=== PATIENT | female | born 1965 | race Caucasian/White ===

== ENCOUNTER 2023-04-17 13:36 | Inpatient (IN) | payer MEDICARE, OTHER ==
--- NOTE | 2023-04-17 14:22 | ED ---
General Adult HPI - General Source: patient, RN notes reviewed Mode of arrival: ambulatory Limitations: no limitations <Zoya Conn - Last Filed: 04/17/23 14:21> <Flaco Mccabe - Last Filed: 04/17/23 19:15> - General Stated complaint: SOB Time Seen by Provider: 04/17/23 14:21 - History of Present Illness Initial comments: 57 year old female presents to the emergency department with a chief complaint of bilateral leg edema for the last few days. Reports accompanying shortness of breath. (Zoya Conn) Patient presents the ED complaining of having increasing lower extremity edema and increasing weight over the past 3 weeks or so. Patient states that she has also had dyspnea and orthopnea over the past 1.5 weeks or so. Patient states that she scheduled an appointment to see her PCP today who referred her to the ED for further evaluation. Patient states that she is diabetic. Patient denies any known history of heart disease. Patient denies having any pain, fever or chills, headache, focal numbness/weakness/neuro deficit, chest pain or pressure, neck/arm/jaw/back pain, cough or cold symptoms, palpitations, dizziness, nausea/vomiting/diaphoresis, abdominal pain, diarrhea, bloody or melanotic stool, dysuria or urinary symptoms, leg or calf pain, or any other symptoms or c omplaints. (Flaco Mccabe) - Related Data Allergies Allergy/AdvReac Type Severity Reaction Status Date / Time No Known Allergies Allergy Verified 04/17/23 14:21 Review of Systems ROS Other: All systems not noted in ROS Statement are negative. <Zoya Conn - Last Filed: 04/17/23 14:21> ROS Other: All systems not noted in ROS Statement are negative. <Flaco Mccabe - Last Filed: 04/17/23 19:15> ROS Statement: Those systems with pertinent positive or pertinent negative responses have been documented in the HPI. Past Medical History Past Medical History: Diabetes Mellitus, Hypertension Additional Past Medical History / Comment(s): high cholestrol History of Any Multi-Drug Resistant Organisms: None Reported Past Surgical History: Orthopedic Surgery, Tonsillectomy Past Psychological History: No Psychological Hx Reported Smoking Status: Vaper Past Alcohol Use History: None Reported Past Drug Use History: None Reported <Zoya Conn - Last Filed: 04/17/23 14:21> General Exam Limitations: no limitations <Zoya Conn - Last Filed: 04/17/23 14:21> Limitations: no limitations General appearance: alert, in no apparent distress Head exam: Present: normocephalic Eye exam: Present: normal appearance ENT exam: Present: mucous membranes moist Neck exam: Present: other (Trachea is in midline) Respiratory exam: Present: other (Bibasilar rales). Absent: respiratory distress, wheezes, rhonchi, stridor Cardiovascular Exam: Present: regular rate, normal rhythm, normal heart sounds, other (Normal radial pulses bilaterally) GI/Abdominal exam: Present: soft. Absent: tenderness, guarding Extremities exam: Present: other (2+ bilateral lower extremity pitting edema; negative Homans sign bilaterally). Absent: tenderness, calf tenderness Neurological exam: Present: alert, oriented X3. Absent: motor sensory deficit Skin exam: Present: warm, dry, intact, normal color <[email or web address] - Last Filed: 04/17/23 19:15> - General Exam Comments Initial Comments: Visual Physical Exam Vital signs reviewed General: Well-appearing, nontoxic, no acute distress. Head: Normocephalic, atraumatic Eyes: PERRLA, EOMI ENT: Airway patent Chest: Nonlabored breathing Skin: No visual rash, normal skin tone Neuro: Alert and oriented 3 Musculoskeletal: No gross abnormalities (Zoya Conn) Course <Flaco Mccabe - Last Filed: 04/17/23 19:15> Vital Signs 04/17/23 04/17/23 04/17/23 14:18 17:35 18:43 Temperature 97.4 F L Pulse Rate 72 72 70 Respiratory 16 18 18 Rate Blood Pressure 133/82 138/76 160/79 O2 Sat by Pulse 100 97 96 Oximetry - Reevaluation(s) Reevaluation #1: 04/17/23 19:08 Case, H&P, test results and ED management thus far were discussed with Dr. Kaye. He accepts hospital admission. He agrees with cardiology consultation. He has no further recommendations at this time. 04/17/23 19:14 Patient remains alert and breathing comfortably. Patient continues to deny having any chest pain. Patient denies development of any new symptoms while in the ED. Patient is aware of her test results, and she agrees with hospital admission at this time. (Flaco Mccabe) EKG Findings - EKG Comments: EKG Findings:: ED physician interpretation (interpreted by me): Normal sinus rhythm, ventricular rate of 71 bpm, normal TX and QRS intervals, normal QT interval, normal axis, no ST or T-wave abnormality <Flaco Mccabe - Last Filed: 04/17/23 19:15> Medical Decision Making <Zoya Conn - Last Filed: 04/17/23 14:21> - Lab Data Result diagrams: 04/17/23 14:23 04/17/23 14:23 <Flaco Mccabe - Last Filed: 04/17/23 19:15> - Medical Decision Making I performed the quick note portion of this exam, verbal signature Zoya Conn PA-C (Zoya Conn) Was pt. sent in by a medical professional or institution ([facility], [facility] [employer] [facility], urgent care, hospital, or halfway...) When possible be specific @ -No Did you speak to anyone other than the patient for history (EMS, parent, family, police, friend...)? What history was obtained from this source @ -No Did you review nursing and triage notes (agree or disagree)? Why? @ -I reviewed and agree with nursing and triage notes Were old charts reviewed (outside hosp., previous admission, EMS record, old EKG, old radiological studies, urgent care reports/EKG's, halfway records)? Report findings @ -No old charts were reviewed Differential Diagnosis (chest pain, altered mental status, abdominal pain women, abdominal pain men, vaginal bleeding, weakness, fever, dyspnea, syncope, headache, dizziness, GI bleed, back pain, seizure, CVA, palpatations, mental health, musculoskeletal)? @ -Differential Dyspnea: Coronary syndrome, arrhythmia, tamponade, asthma, COPD, pneumonia, pneumothorax, pleural effusion, anaphylaxis, CHF, anemia, neuromuscular, edema, renal disease, liver disease, this is not meant to be an all-inclusive list. EKG interpreted by me (3pts min.). @ -As above X-rays interpreted by me (1pt min.). @ -Chest x-ray was reviewed by myself and shows findings consistent with mild CHF. I agree with the radiologist's interpretation as above. CT interpreted by me (1pt min.). @ -None done U/S interpreted by me (1pt. min.). @ -None done What testing was considered but not performed or refused? (CT, X-rays, U/S, labs)? Why? @ -None What meds were considered but not given or refused? Why? @ -None Did you discuss the management of the patient with other professionals (professionals i.e. , PA, [employer], lab, RT, psych nurse, social media project manager, import/export agent, teacher, chief informatics officer, corrections caseworker)? Give summary @ -As above. Was smoking cessation discussed for >3mins.? @ -No Was critical care preformed (if so, how long)? @ -No Were there social determinants of health that impacted care today? How? (Homelessness, low income, unemployed, alcoholism, drug addiction, transportation, low edu. Level, literacy, decrease access to med. care, [facility], rehab)? @ -No Was there de-escalation of care discussed even if they declined (Discuss DNR or withdrawal of care, Hospice)? DNR status @ -No What co-morbidities impacted this encounter? (DM, HTN, Smoking, COPD, CAD, Cancer, CVA, ARF, Chemo, Hep., AIDS, mental health diagnosis, sleep apnea, morbid obesity)? @ -DM Was patient admitted / discharged? Hospital course, mention meds given and rou te, prescriptions, significant lab abnormalities, going to OR and other pertinent info. @ -Patient is noted to have pitting edema on lower extremity examination. Patient also has bibasilar rales on auscultation. Patient's chest x-ray is suggestive of mild CHF. Patient[place] BNP [place] in [place] [address]'s. Patient's troponin is within normal limits. Patient's renal function is also elevated (no baseline to compare to). Patient is breathing comfortably with a normal room air oxygen saturation. Patient has been treated with IV Lasix in the ED. Patient's symptoms/findings are consistent with new onset CHF. Will admit the patient to the hospital. Dr. Kaye has accepted hospital admission. Undiagnosed new problem with uncertain prognosis? @ -No Drug Therapy requiring intensive monitoring for toxicity (Heparin, Nitro, Insulin, Cardizem)? @ -No Were any procedures done? @ -No Diagnosis/symptom? @ -New onset CHF with peripheral edema Acute, or Chronic, or Acute on Chronic? @ -acute/subacute Uncomplicated (without systemic symptoms) or Complicated (systemic symptoms)? @ -default Side effects of treatment? @ -No Exacerbation, Progression, or Severe Exacerbation? @ -No Poses a threat to life or bodily function? How? (Chest pain, USA, ME, pneumonia, PE, COPD, DKA, ARF, appy, cholecystitis, CVA, Diverticulitis, Homicidal, Suicidal, threat to staff... and all critical care pts) @ -No Diagnosis/symptom? @ -Renal insufficiency Acute, or Chronic, or Acute on Chronic? @ -default Uncomplicated (without systemic symptoms) or Complicated (systemic symptoms)? @ -default Side effects of treatment? @ -none Exacerbation, Progression, or Severe Exacerbation] @ -no Poses a threat to life or bodily function? @ -no (Flaco Mccabe) - Lab Data Lab Results 04/17/23 04/17/23 04/17/23 Range/Units 14:23 14:23 14:23 WBC 6.9 (3.8-10.6) k/uL RBC 3.90 (3.80-5.40) m/uL Hgb 10.4 L (11.4-16.0) gm/dL Hct 33.2 L (34.0-46.0) % MCV 85.1 (80.0-100.0) fL MCH 26.7 (25.0-35.0) pg MCHC 31.4 (31.0-37.0) g/dL RDW 14.8 (11.5-15.5) % Plt Count 306 (150-450) k/uL MPV 8.4 Neutrophils % 75 % Lymphocytes % 14 % Monocytes % 5 % Eosinophils % 4 % Basophils % 0 % Neutrophils # 5.2 (1.3-7.7) k/uL Lymphocytes # 0.9 L (1.0-4.8) k/uL Monocytes # 0.4 (0-1.0) k/uL Eosinophils # 0.2 (0-0.7) k/uL Basophils # 0.0 (0-0.2) k/uL Hypochromasia Marked PT 10.4 (10.0-12.5) sec INR 0.9 (<1.2) APTT 26.3 (22.0-30.0) sec Sodium 137 (137-145) mmol/L Potassium 5.1 (3.5-5.1) mmol/L Chloride 106 (98-107) mmol/L Carbon Dioxide 22 (22-30) mmol/L Anion Gap 9 mmol/L BUN 42 H (7-17) mg/dL Creatinine 1.82 H (0.52-1.04) mg/dL Est GFR (CKD-EPI)AfAm 35 (>60 ml/min/1.73 sqM) Est GFR (CKD-EPI)NonAf 30 (>60 ml/min/1.73 sqM) Glucose 147 H (74-99) mg/dL Calcium 8.2 L (8.4-10.2) mg/dL Total Bilirubin 0.5 (0.2-1.3) mg/dL AST 28 (14-36) U/L ALT 23 (4-34) U/L Alkaline Phosphatase 215 H (38-126) U/L Troponin I (0.000-0.034) ng/mL NT-Pro-B Natriuret Pep 43595 pg/mL Total Protein 6.5 (6.3-8.2) g/dL Albumin 3.0 L (3.5-5.0) g/dL Influenza Type A (PCR) (Not Detectd) Influenza Type B (PCR) (Not Detectd) RSV (PCR) (Not Detectd) SARS-CoV-2 (PCR) (Not Detectd) 04/17/23 04/17/23 Range/Units 14:23 17:34 WBC (3.8-10.6) k/uL RBC (3.80-5.40) m/uL Hgb (11.4-16.0) gm/dL Hct (34.0-46.0) % MCV (80.0-100.0) fL MCH (25.0-35.0) pg MCHC (31.0-37.0) g/dL RDW (11.5-15.5) % Plt Count (150-450) k/uL MPV Neutrophils % % Lymphocytes % % Monocytes % % Eosinophils % % Basophils % % Neutrophils # (1.3-7.7) k/uL Lymphocytes # (1.0-4.8) k/uL Monocytes # (0-1.0) k/uL Eosinophils # (0-0.7) k/uL Basophils # (0-0.2) k/uL Hypochromasia PT (10.0-12.5) sec INR (<1.2) APTT (22.0-30.0) sec Sodium (137-145) mmol/L Potassium (3.5-5.1) mmol/L Chloride (98-107) mmol/L Carbon Dioxide (22-30) mmol/L Anion Gap mmol/L BUN (7-17) mg/dL Creatinine (0.52-1.04) mg/dL Est GFR (CKD-EPI)AfAm (>60 ml/min/1.73 sqM) Est GFR (CKD-EPI)NonAf (>60 ml/min/1.73 sqM) Glucose (74-99) mg/dL Calcium (8.4-10.2) mg/dL Total Bilirubin (0.2-1.3) mg/dL AST (14-36) U/L ALT (4-34) U/L Alkaline Phosphatase (38-126) U/L Troponin I 0.013 (0.000-0.034) ng/mL NT-Pro-B Natriuret Pep pg/mL Total Protein (6.3-8.2) g/dL Albumin (3.5-5.0) g/dL Influenza Type A (PCR) Not Detected (Not Detectd) Influenza Type B (PCR) Not Detected (Not Detectd) RSV (PCR) Not Detected (Not Detectd) SARS-CoV-2 (PCR) Not Detected (Not Detectd) - Radiology Data Chest x-ray: Favor mild CHF or interstitial pneumonitis, correlate clinically. (Flaco Mccabe) Disposition <Zoya Conn - Last Filed: 04/17/23 14:21> Is patient prescribed a controlled substance at d/c from ED?: No Time of Disposition: 19:08 <Flaco Mccabe - Last Filed: 04/17/23 19:15> Clinical Impression: CHF (congestive heart failure), Renal insufficiency Disposition: ADMITTED IP TO THIS HOSP Condition: Stable Referrals: Fadi Nolen DO [Primary Care Provider] - 1-2 days
--- NOTE | 2023-04-17 14:38 | XR ---
EXAMINATION TYPE: XR chest 2V DATE OF EXAM: 04/17/2023 COMPARISON: NONE TECHNIQUE: PA and lateral views submitted. HISTORY: Soreness of breath FINDINGS: There is an interstitial pattern with small bilateral pleural effusion and basilar subsegmental conso lidation on the left. Atherosclerotic change of aorta. Heart mildly enlarged. Diffuse osteopenia. Oss eous structures demonstrate hypertrophic and degenerative changes of the spine. IMPRESSION: 1. Favor mild CHF or interstitial pneumonitis, correlate clinically.
[2023-04-17 15:25] LABS: Basophils % (A) 0 %; Eosinophils # (A) 0.2 k/uL (0-0.7); Eosinophils % (A) 4 %; HCT 33.2 % (34.0-46.0); HGB 10.4 gm/dL (11.4-16.0); Hypochromasia Marked; Lymphocytes # (A) 0.9 k/uL (1.0-4.8); Lymphocytes % (A) 14 %; MCH 26.7 pg (25.0-35.0); MCHC 31.4 g/dL (31.0-37.0); MCV 85.1 fL (80.0-100.0); Mean Platelet Volume 8.4; Monocytes # (A) 0.4 k/uL (0-1.0); Monocytes % (A) 5 %; Neutrophils # (A) 5.2 k/uL (1.3-7.7); Neutrophils % (A) 75 %; Platelet Count 306 k/uL (150-450); RDW 14.8 % (11.5-15.5); WBC 6.9 k/uL (3.8-10.6)
[2023-04-17 15:38] LABS: INR 0.9 (<1.2); Partial Thromboplastin Time 26.3 sec (22.0-30.0); Prothrombin Time 10.4 sec (10.0-12.5)
[2023-04-17 15:55] LABS: ALT 23 U/L (4-34); AST 28 U/L (14-36); African American GFR (CKD) 35 (>60 ml/min/1.73 sqM); Alkaline Phosphatase 215 U/L (38-126); Anion Gap 9 mmol/L; Blood Urea Nitrogen 42 mg/dL (7-17); Calcium 8.2 mg/dL (8.4-10.2); Carbon Dioxide 22 mmol/L (22-30); Chloride 106 mmol/L (98-107); Glucose 147 mg/dL (74-99); Non-African American GFR(CKD) 30 (>60 ml/min/1.73 sqM); Potassium 5.1 mmol/L (3.5-5.1); Sodium 137 mmol/L (137-145); Total Bilirubin 0.5 mg/dL (0.2-1.3); Total Protein 6.5 g/dL (6.3-8.2)
[2023-04-17 16:02] LABS: NT-Pro-B-Type Natriuretic Pept 16800 pg/mL
[2023-04-17] MEDS ORDERED: FUROSEMIDE 10 MG/ML 4 ML VIAL IV STA (16:53)
[2023-04-17] MEDS ORDERED: NALOXONE 0.4 MG/ML 1 ML VIAL IV PRN (19:09)
[2023-04-17 19:24] LABS: Appearance,Urine Clear (Clear); Bilirubin,Urine Negative (Negative); Blood,Urine Negative (Negative); Color,Urine Colorless; Glucose,Urine (UA) 3+ (Negative); Ketones,Urine Negative (Negative); Leukocyte Esterase,Urine Negative (Negative); Mucus,Urine Rare /hpf; Nitrite,Urine Negative (Negative); PH, Urine 5.5 (5.0-8.0); Protein,Urine 1+ (Negative); Squamous Epithelial Cell,Urine 1 /hpf (0-4); Urobilinogen,Urine <2.0 mg/dL (<2.0); WBC,Urine <1 /hpf (0-5)
--- NOTE | 2023-04-17 21:24 | P.HPIM ---
History of Present Illness H&P Date: 04/16/23 Patient is a 57-year-old female with a PMH of type II DM completed by peripheral neuropathy with chronic nonhealing right foot ulcers, hypertension, hyperlipidemia who was sent in to the emergency room from her PCPs clinic for concerns of fluid overload. Patient reports that the past 3-4 weeks, she has weaned 20+ pounds and has gradually worsening lower extremity edema extending up to her abdomen. Reports exertional dyspnea and nonproductive cough. Also reports a nonhealing right heel ulcer for which she was previously following with a fire prevention specialist but has lost to follow-up. She denies experiencing chest discomfort, nausea, vomiting, diaphoresis. She reports using a cane over the past 2-3 as her legs feel heavy due to increased fluid retention. Patient does report that she may have previous been diagnosed with congestive heart failure and at some point was taking Lasix but has not followed up with her physicians. Of note, the patient notes she was recently several months ago and lives by herself and does not have much help at home with her ADLs. Chest x-ray in the emergency room was consistent with fluid overload. EKG revealed sinus rhythm short GA interval a [address] bpm with no other ST/T-wave changes noted as reviewed by me. Laboratory evaluation revealed BUN of 42, creatinine 1.82 (no baseline available for comparison), proBNP 16,800, glucose 147, an un remarkable UA and a negative respiratory viral panel pending. ED documentation reviewed and case discussed with ED provider. Review of systems: Pertinent positives and negatives as discussed in HPI, a complete review of systems was performed and all other systems are negative. Physical examination: Vital signs reviewed General: non toxic, no distress, appears at stated age, overweight Derm: Unstageable right heel large ulcer with some surrounding erythema along with right foot dorsum streak-like lesion extending from ankle to toes with purulent base and mild erythema, warm Head: atraumatic, normocephalic, symmetric Eyes: EOMI, no lid lag, anicteric sclera, pupils equal round reactive to light ENT: Nose and ears atraumatic Neck: No cervical lymphadenopathy, trachea midline, supple Mouth: no lip lesion, mucus membranes moist Cardiovascular: S1S2 reg, no murmur, positive dorsalis pedis pulse bilateral, 2+ bilateral lower extremity pitting edema to thighs Lungs: Mild bibasilar rales, no accessory muscle use Abdominal: soft, nontender to palpation, no guarding Ext: muscle strength 5 out of 5 in all 4 extremities grossly, no gross muscle atrophy, no contractures, Neuro: CN II-XI grossly intact, no gross focal neuro deficits Psych: Alert, oriented, appropriate affect Assessment: Acute CHF exacerbation Kidney injury, acute versus chronic Diabetic right foot ulcers, chronic Normocytic anemia, no baseline available for comparison Chronic conditions: Hypertension, hyperlipidemia Imaging: Chest x-ray in the emergency room was consistent with fluid overload. EKG revealed sinus rhythm short GA interval a 71 bpm with no other ST/T-wave changes noted as reviewed by me. Data Review: Laboratory evaluation revealed BUN of 42, creatinine 1.82 (no baseline available for comparison), proBNP 16,800, glucose 147, an unremarkable UA and a negative respiratory viral panel pending. Plan: Continue with Lasix 40 mg IV every 12 hourly Cardiology consulted Cardiac monitoring Intake and output Daily weights Obtain echocardiogram Wound care and infectious disease consulted Obtain anemia workup Continue with home medications Monitor BMP DVT prophylaxis: Lovenox subcu The patient is admitted with an anticipated les than 2 midnight stay for evaluation of CHF CODE STATUS: Full Code Discussed with: Patient Anticipated discharge place: Home Past Medical History Past Medical History: Diabetes Mellitus, Hypertension Additional Past Medical History / Comment(s): high cholestrol History of Any Multi-Drug Resistant Organisms: None Reported Past Surgical History: Orthopedic Surgery, Tonsillectomy Past Psychological History: No Psychological Hx Reported Smoking Status: Vaper Past Alcohol Use History: None Reported Past Drug Use History: None Reported Medications and Allergies Home Medications Medication Instructions Recorded Confirmed Type Atorvastatin [Lipitor] 40 mg PO DAILY 04/17/23 04/17/23 History Dapagliflozin Propanediol [Farxiga] 5 mg PO DAILY 04/17/23 04/17/23 History Diclofenac Sodium [Voltaren] 75 mg PO BID 04/17/23 04/17/23 History Ezetimibe [Zetia] 10 mg PO DAILY 04/17/23 04/17/23 History Gabapentin 600 mg PO QID 04/17/23 04/17/23 History Multivitamins, Thera [Multivitamin 1 tab PO DAILY 04/17/23 04/17/23 History (formulary)] Sertraline [Zoloft] 50 mg PO DIRECTED 04/17/23 04/17/23 History Spironolactone [Aldactone] 25 mg PO DAILY 04/17/23 04/17/23 History Torsemide [Demadex] 20 mg PO DAILY 04/17/23 04/17/23 History carvediloL 12.5 mg PO BID@0900,1700 04/17/23 04/17/23 History lisinopriL [Zestril] 10 mg PO DAILY 04/17/23 04/17/23 History rOPINIRole HCL [Requip] 1 mg PO HS 04/17/23 04/17/23 History Allergies Allergy/AdvReac Type Severity Reaction Status Date / Time No Known Allergies Allergy Verified 04/17/23 19:32 Physical Exam Vitals: Vital Signs Temp Pulse Resp BP Pulse Ox 04/17/23 18:43 70 18 160/79 96 04/17/23 17:35 72 18 138/76 97 04/17/23 14:18 97.4 F L 72 16 133/82 100 Intake and Output 04/17/23 04/17/23 04/17/23 06:59 14:59 22:59 Other: Weight 74.843 kg Results CBC & Chem 7: 04/17/23 14:23 04/17/23 14:23 Labs: Abnormal Lab Results - Last 24 Hours (Table) 04/17/23 04/17/23 04/17/23 Range/Units 14:23 14:23 17:34 Hgb 10.4 L (11.4-16.0) gm/dL Hct 33.2 L (34.0-46.0) % Lymphocytes # 0.9 L (1.0-4.8) k/uL BUN 42 H (7-17) mg/dL Creatinine 1.82 H (0.52-1.04) mg/dL Glucose 147 H (74-99) mg/dL Calcium 8.2 L (8.4-10.2) mg/dL Alkaline Phosphatase 215 H (38-126) U/L Albumin 3.0 L (3.5-5.0) g/dL Urine Protein 1+ H (Negative) Urine Glucose (UA) 3+ H (Negative) Urine Mucus Rare H (None) /hpf
[2023-04-17] MEDS: GABAPENTIN 300 MG CAP PO SCH (22:21)
[2023-04-17 22:37] LABS: Glucose,Whole Blood 230 mg/dL (70-110)
[2023-04-18 06:47] LABS: Basophils # (A) 0.1 k/uL (0-0.2); Basophils % (A) 1 %; Eosinophils # (A) 0.2 k/uL (0-0.7); Eosinophils % (A) 4 %; HCT 28.9 % (34.0-46.0); Hypochromasia Marked; Lymphocytes # (A) 0.9 k/uL (1.0-4.8); Lymphocytes % (A) 15 %; MCH 26.7 pg (25.0-35.0); MCHC 30.8 g/dL (31.0-37.0); MCV 86.6 fL (80.0-100.0); Mean Platelet Volume 8.6; Monocytes # (A) 0.3 k/uL (0-1.0); Monocytes % (A) 5 %; Neutrophils # (A) 4.5 k/uL (1.3-7.7); Neutrophils % (A) 73 %; Platelet Count 258 k/uL (150-450); RBC 3.34 m/uL (3.80-5.40); RDW 14.7 % (11.5-15.5); WBC 6.1 k/uL (3.8-10.6)
[2023-04-18 06:50] LABS: HGB 8.9 gm/dL (11.4-16.0)
[2023-04-18 07:14] LABS: ALT 19 U/L (4-34); AST 20 U/L (14-36); African American GFR (CKD) 34 (>60 ml/min/1.73 sqM); Albumin 2.5 g/dL (3.5-5.0); Alkaline Phosphatase 183 U/L (38-126); Anion Gap 10 mmol/L; Blood Urea Nitrogen 40 mg/dL (7-17); Carbon Dioxide 19 mmol/L (22-30); Chloride 107 mmol/L (98-107); Glucose 185 mg/dL (74-99); Non-African American GFR(CKD) 29 (>60 ml/min/1.73 sqM); Potassium 5.1 mmol/L (3.5-5.1); Sodium 136 mmol/L (137-145); Total Bilirubin 0.4 mg/dL (0.2-1.3); Total Protein 5.6 g/dL (6.3-8.2)
[2023-04-18 07:40] LABS: Glucose,Whole Blood 235 mg/dL (70-110)
[2023-04-18] MEDS: INSULIN ASPART (NovoLOG) 100 UNIT/ML VIAL SQ SCH ×4 (08:01→21:54)
[2023-04-18] MEDS ORDERED: ENOXAPARIN 40 MG/0.4 ML SYRINGE SQ SCH (09:00)
[2023-04-18] MEDS ORDERED: TORSEMIDE 20 MG TAB PO SCH (09:00)
[2023-04-18] MEDS: GABAPENTIN 300 MG CAP PO SCH ×4 (09:12→21:24)
[2023-04-18] MEDS: ATORVASTATIN 40 MG TAB PO SCH (09:13)
[2023-04-18] MEDS: SERTRALINE 50 MG TAB PO SCH (09:13)
[2023-04-18] MEDS: carvediloL 12.5 MG TAB PO SCH ×2 (09:13→17:48)
[2023-04-18] MEDS: MULTIVITAMINS, THERA 1 EACH TAB PO SCH (09:13)
[2023-04-18] MEDS: SPIRONOLACTONE 25 MG TAB PO SCH (09:13)
[2023-04-18] MEDS: FUROSEMIDE 10 MG/ML 4 ML VIAL IV SCH ×2 (09:13→21:26)
[2023-04-18 11:37] LABS: % Iron Saturation 6.56 (12.00-45.00); Iron 17 UG/DL (50-170); Total Iron Binding Capacity 259 UG/DL (228-460)
[2023-04-18 11:38] LABS: Ferritin 66.4 ng/mL (10.0-291.0)
--- NOTE | 2023-04-18 12:06 | P.CONS ---
History of Present Illness - Reason for Consult Consult date: 04/18/23 wound care - History of Present Illness This is a 57-year-old patient with past medical history significant for type 2 diabetes, peripheral neuropathy chronic nonhealing ulceration to the right dorsal foot and right calcaneus, hypertension hyperlipidemia. Patient has been receiving treatments for the nonhealing ulceration for proximally 1 month. She's been utilizing a cream that comes and a yellow container. Patient c ontinues to ambulate on the ulceration. Right calcaneus ulceration measures approximately 2 x 2 width undermining present from 5:00 to 9:00 at 2.5 cm the edges are rolled. There is granulation seen throughout the wound bed with Slough and nonviable tissue present. Right dorsal foot ulceration measures 4 x 0.4 x 0.3 cm with fat layer exposure. Patient has significant amount of slough with minimal granulation noted to the wound bed. Wound edges are tested the wound base no tunneling or undermining noted. Review Of Systems: Constitutional: No fever, no chills, no night sweats. No weight change. No weakness, fatigue or lethargy. No daytime sleepiness. Integumentary:reports wounds, no lesions. No rash or pruritus. No unusual bruising. No change in hair or nails. Physical exam: General Appearance: Alert, cooperative, no distress, appears stated age. Skin: See HPI all other Skin color, texture, tugor normal, no rashes or lesions. Neurologic: Alert oriented x3 Assessment: 1. Stage III pressure ulcer right calcaneus 2. Non-pressure ulceration other part of right foot with fatty layer exposure 3. Diabetic foot ulcer 4. Diabetes with neuropathy Plan: 1.Apply honey alginate, saline moisten gauze, dry gauze and rolled gauze. Secure with paper tape. No weight bearing to right heel. Use walker for ambulation. Patient would benefit from advance wound care and wound care setting. We'll be happy to see her upon discharge. Thank you for this consultation any questions please contact the wound care center DNP note has been reviewed and discussed with Dr. Chavez and the impression and plan of care has been directed as dictated. Past Medical History Past Medical History: Diabetes Mellitus, Hyperlipidemia, Hypertension Additional Past Medical History / Comment(s): restless leg, neurothopy, Guillain-Semora History of Any Multi-Drug Resistant Organisms: None Reported Past Surgical History: Orthopedic Surgery, Tonsillectomy Additional Past Surgical History / Comment(s): "plate in left leg to straighten leg as a child" - plate removed, right total hip replacement due to a fracture from a fall Past Anesthesia/Blood Transfusion Reactions: No Reported Reaction Past Psychological History: No Psychological Hx Reported Smoking Status: Vaper Past Alcohol Use History: None Reported Past Drug Use History: None Reported Medications and Allergies Home Medications Medication Instructions Recorded Confirmed Type Atorvastatin [Lipitor] 40 mg PO DAILY 04/17/23 04/17/23 History Dapagliflozin Propanediol [Farxiga] 5 mg PO DAILY 04/17/23 04/17/23 History Diclofenac Sodium [Voltaren] 75 mg PO BID 04/17/23 04/17/23 History Ezetimibe [Zetia] 10 mg PO DAILY 04/17/23 04/17/23 History Gabapentin 600 mg PO QID 04/17/23 04/17/23 History Multivitamins, Thera [Multivitamin 1 tab PO DAILY 04/17/23 04/17/23 History (formulary)] Sertraline [Zoloft] 50 mg PO DIRECTED 04/17/23 04/17/23 History Spironolactone [Aldactone] 25 mg PO DAILY 04/17/23 04/17/23 History Torsemide [Demadex] 20 mg PO DAILY 04/17/23 04/17/23 History carvediloL 12.5 mg PO BID@0900,1700 04/17/23 04/17/23 History lisinopriL [Zestril] 10 mg PO DAILY 04/17/23 04/17/23 History rOPINIRole HCL [Requip] 1 mg PO HS 04/17/23 04/17/23 History Allergies Allergy/AdvReac Type Severity Reaction Status Date / Time No Known Allergies Allergy Verified 04/17/23 19:32 Physical Exam Vitals: Vital Signs Temp Pulse Resp BP Pulse Ox 04/18/23 09:20 76 18 142/81 04/18/23 06:14 98.6 F 75 17 129/64 95 04/18/23 04:00 73 14 143/82 95 04/18/23 00:00 75 17 136/72 96 04/17/23 18:43 70 18 160/79 96 04/17/23 17:35 72 18 138/76 97 04/17/23 14:18 97.4 F L 72 16 133/82 100 Intake and Output 04/17/23 04/18/23 04/18/23 22:59 06:59 14:59 Output Total 100 Balance -100 Output: Urine 100 Results CBC & Chem 7: 04/18/23 05:45 04/18/23 05:45 Labs: Abnormal Lab Results - Last 24 Hours (Table) 04/17/23 04/17/23 04/17/23 Range/Units 14:23 14:23 17:34 RBC (3.80-5.40) m/uL Hgb 10.4 L (11.4-16.0) gm/dL Hct 33.2 L (34.0-46.0) % MCHC (31.0-37.0) g/dL Lymphocytes # 0.9 L (1.0-4.8) k/uL Sodium (137-145) mmol/L Carbon Dioxide (22-30) mmol/L BUN 42 H (7-17) mg/dL Creatinine 1.82 H (0.52-1.04) mg/dL Glucose 147 H (74-99) mg/dL POC Glucose (mg/dL) (70-110) mg/dL Calcium 8.2 L (8.4-10.2) mg/dL Iron (50-170) UG/DL % Saturation (12.00-45.00) Transferrin (204.0-354.0) mg/dL Alkaline Phosphatase 215 H (38-126) U/L Total Protein (6.3-8.2) g/dL Albumin 3.0 L (3.5-5.0) g/dL Urine Protein 1+ H (Negative) Urine Glucose (UA) 3+ H (Negative) Urine Mucus Rare H (None) /hpf 04/17/23 04/18/23 04/18/23 Range/Units 22:35 05:45 05:45 RBC 3.34 L (3.80-5.40) m/uL Hgb 8.9 L D (11.4-16.0) gm/dL Hct 28.9 L (34.0-46.0) % MCHC 30.8 L (31.0-37.0) g/dL Lymphocytes # 0.9 L (1.0-4.8) k/uL Sodium 136 L (137-145) mmol/L Carbon Dioxide 19 L (22-30) mmol/L BUN 40 H (7-17) mg/dL Creatinine 1.88 H (0.52-1.04) mg/dL Glucose 185 H (74-99) mg/dL POC Glucose (mg/dL) 230 H (70-110) mg/dL Calcium 8.0 L (8.4-10.2) mg/dL Iron 17 L (50-170) UG/DL % Saturation 6.56 L (12.00-45.00) Transferrin 185.0 L (204.0-354.0) mg/dL Alkaline Phosphatase 183 H (38-126) U/L Total Protein 5.6 L (6.3-8.2) g/dL Albumin 2.5 L (3.5-5.0) g/dL Urine Protein (Negative) Urine Glucose (UA) (Negative) Urine Mucus (None) /hpf 04/18/23 Range/Units 07:38 RBC (3.80-5.40) m/uL Hgb (11.4-16.0) gm/dL Hct (34.0-46.0) % MCHC (31.0-37.0) g/dL Lymphocytes # (1.0-4.8) k/uL Sodium (137-145) mmol/L Carbon Dioxide (22-30) mmol/L BUN (7-17) mg/dL Creatinine (0.52-1.04) mg/dL Glucose (74-99) mg/dL POC Glucose (mg/dL) 235 H (70-110) mg/dL Calcium (8.4-10.2) mg/dL Iron (50-170) UG/DL % Saturation (12.00-45.00) Transferrin (204.0-354.0) mg/dL Alkaline Phosphatase (38-126) U/L Total Protein (6.3-8.2) g/dL Albumin (3.5-5.0) g/dL Urine Protein (Negative) Urine Glucose (UA) (Negative) Urine Mucus (None) /hpf Assessment and Plan (1) Pressure ulcer of right heel, stage 3 Current Visit: Yes Status: Acute Code(s): L89.613 - PRESSURE ULCER OF RIGHT HEEL, STAGE 3 SNOMED Code(s): 45556360424222 (2) Non-pressure chronic ulcer of other part of right foot with fat layer exposed Current Visit: Yes Status: Acute Code(s): L97.512 - NON-PRS CHRONIC ULCER OTH PRT RIGHT FOOT W FAT LAYER EXPOSED SNOMED Code(s): 30917686233182287 (3) Type 2 diabetes mellitus with diabetic neuropathic arthropathy Current Visit: Yes Status: Acute Code(s): E11.610 - TYPE 2 DIABETES MELLITUS W DIABETIC NEUROPATHIC ARTHROPATHY SNOMED Code(s): 329851948196 (4) Type 2 diabetes mellitus with foot ulcer Current Visit: Yes Status: Acute Code(s): E11.621 - TYPE 2 DIABETES MELLITUS WITH FOOT ULCER; L97.509 - NON-PRESSURE CHRONIC ULCER OTH PRT UNSP FOOT W UNSP SEVERITY SNOMED Code(s): 493814150
--- NOTE | 2023-04-18 12:34 | CA ---
Transthoracic Echo Report Name: Chelle Lin Age: 57 Gender: F : 1965 Exam Date: 04/18/2023 08:46 Exam Location: [facility] Ht (in): 63 Wt (lb): 165 Ordering Physician: Kervin Kaye MD Attending/Referring Phys: Clinical Care Leader Samantha Ricks [facility] Procedure CPT: Indications: chf Cardiac Hx: Technical Quality: Fair Contrast 1: Total Dose (mL): Contrast 2: Total Dose (mL): MEASUREMENTS (Male / Female) Normal Values 2D ECHO LV Diastolic Diameter PLAX 4.6 cm 4.2 - 5.9 / 3.9 - 5.3 cm LV Systolic Diameter PLAX 3.8 cm IVS Diastolic Thickness 1.0 cm 0.6 - 1.0 / 0.6 - 0.9 cm LVPW Diastolic Thickness 1.1 cm 0.6 - 1.0 / 0.6 - 0.9 cm LV Relative Wall Thickness 0.5 LVOT Diameter 2.0 cm Ascending Aorta Diameter 2.7 cm M-MODE Aortic Root Diameter MM 2.1 cm LA Systolic Diameter MM 4.7 cm LA Ao Ratio MM 2.2 AV Cusp Separation MM 1.6 cm DOPPLER AV Peak Velocity 158.7 cm/s AV Peak Gradient 10.1 mmHg AV Mean Velocity 117.4 cm/s AV Mean Gradient 6.0 mmHg AV Velocity Time Integral 31.4 cm LVOT Peak Velocity 127.1 cm/s LVOT Peak Gradient 6.5 mmHg LVOT Velocity Time Integral 25.9 cm LVOT Stroke Volume 80.3 cm??? LVOT Stroke Volume Index 45.1 ml/m??? LVOT Cardiac Index 3260.2 cm???/min???m??? AV Area Cont Eq vti 2.6 cm??? AV Area Cont Eq pk 2.5 cm??? Mitral E Point Velocity 90.9 cm/s Mitral A Point Velocity 64.0 cm/s Mitral E to A Ratio 1.4 MV Deceleration Time 134.9 ms LV E' Lateral Velocity 7.1 cm/s Mitral E to LV E' Lateral Ratio 12.9 LV E' Septal Velocity 4.0 cm/s Mitral E to LV E' Septal Ratio 22.7 TR Peak Velocity 359.2 cm/s TR Peak Gradient 51.6 mmHg Right Atrial Pressure 15.0 mmHg Pulmonary Artery Systolic Pressu 66.6 mmHg Right Ventricular Systolic Press 66.6 mmHg FINDINGS Left Ventricle Mildly increased left ventricular wall thickness. Left ventricular cavity size normal. Left ventricular ejection fraction is estimated at 40-45 %. Moderately reduced global left ventricular systolic function. Right Ventricle Mild right ventricular dilatation. Severe pulmonary hypertension. Right Atrium Moderate right atrial dilatation. Left Atrium Severe left atrial dilatation. Mitral Valve Mitral valve thickened. Moderate mitral regurgitation. Aortic Valve Trileaflet aortic valve. Aortic valve sclerosis. No aortic regurgitation. Tricuspid Valve Structurally normal tricuspid valve. Moderate tricuspid regurgitation. Pulmonic Valve Structurally normal pulmonic valve. Trace pulmonic regurgitation. Pericardium No pericardial effusion. Aorta Normal size aortic root and proximal ascending aorta. CONCLUSIONS 1. Moderately impaired left ventricular systolic function with global hypokinesis 2. Moderate mitral and tricuspid regurgitation 3. Severe pulmonary hypertension Previewed by: Dr. Best Riddle MD (Electronically Signed) Final Date: 18 April 2023 12:34
[2023-04-18 13:03] LABS: Glucose,Whole Blood 283 mg/dL (70-110)
[2023-04-18] MEDS: AMPICILLIN-SULBACTAM 3 GM in SODIUM CHLORIDE 0.9% 100 ML IVPB SCH (13:55)
--- NOTE | 2023-04-18 14:28 | XR ---
EXAMINATION TYPE: XR foot complete RT DATE OF EXAM: 04/18/2023 COMPARISON: NONE HISTORY: Pain TECHNIQUE: Three views are submitted. FINDINGS: The osseous structures are intact. There is no acute fracture or dislocation. There are hammer toe deformities noted. Diffuse soft tissue edema and there is a large ulceration along the plantar surfa ce of the heel. Small plantar calcaneal spur. First and fifth MTP joint arthropathy. Vascular calcifi cations. IMPRESSION: 1. Large soft tissue ulceration involving the plantar surface of the heel with no definite destructiv e change diagnostic of osteomyelitis.
--- NOTE | 2023-04-18 15:26 | P.PN ---
Subjective Progress Note Date: 04/18/23 No new complaints. Pt reports still feeling dyspneic with exertion. Gen: awake, alert HEENT: normocephalic, atraumatic, good hearing acuity, moist mucous membranes Resp: good air exchange, breathing comfortably with no accessory muscle use CVS: good distal perfusion x 4, GI: soft, NTTP, ND : no SPT, no CVAT, solis catheter not present MSK: no pitting edema, no clubbing Neuro: non-focal, moving all extremities Psych: cooperative, euthymic mood Hospital Course: Patient is a 57-year-old female with a PMH of type II DM completed by peripheral neuropathy with chronic nonhealing right foot ulcers, hypertension, hyperlipidemia who was sent in to the emergency room from her PCPs clinic for concerns of fluid overload. Chest x-ray in the emergency room was consistent with fluid overload. EKG revealed sinus rhythm short AK interval a 71 bpm with no other ST/T-wave changes noted as reviewed by me. Laboratory evaluation revealed BUN of 42, creatinine 1.82 (no baseline available for comparison), proBNP 16,800, glucose 147, an unremarkable UA and a negative respiratory viral panel pending. Assessment: Acute CHF exacerbation Kidney injury, acute versus chronic Diabetic right foot ulcers, chronic Normocytic anemia, no baseline available for comparison Chronic conditions: Hypertension, hyperlipidemia Plan: Continue with Lasix 40 mg IV every 12 hourly Cardiology consulted Cardiac monitoring Intake and output Daily weights Obtain echocardiogram Wound care and infectious disease consulted Obtain anemia workup Continue with home medications Monitor BMP DVT prophylaxis: Lovenox subcu The patient is admitted with an anticipated les than 2 midnight stay for evaluation of CHF CODE STATUS: Full Code Discussed with: Patient Anticipated discharge place: Home Objective - Vital Signs Vital signs: Vital Signs Temp 98.6 F 04/18/23 06:14 Pulse 82 04/18/23 12:54 Resp 18 04/18/23 12:54 BP 146/76 04/18/23 12:54 Pulse Ox 95 04/18/23 06:14 FiO2 Intake & Output 04/17/23 04/18/23 04/18/23 18:59 06:59 18:59 Output Total 100 Balance -100 Weight 74.843 kg Output: Urine 100 - Labs CBC & Chem 7: 04/18/23 05:45 04/18/23 05:45 Labs: Abnormal Lab Results - Last 24 Hours (Table) 04/17/23 04/17/23 04/17/23 Range/Units 14:23 14:23 17:34 RBC (3.80-5.40) m/uL Hgb 10.4 L (11.4-16.0) gm/dL Hct 33.2 L (34.0-46.0) % MCHC (31.0-37.0) g/dL Lymphocytes # 0.9 L (1.0-4.8) k/uL D-Dimer (<0.60) mg/L FEU Sodium (137-145) mmol/L Carbon Dioxide (22-30) mmol/L BUN 42 H (7-17) mg/dL Creatinine 1.82 H (0.52-1.04) mg/dL Glucose 147 H (74-99) mg/dL POC Glucose (mg/dL) (70-110) mg/dL Calcium 8.2 L (8.4-10.2) mg/dL Iron (50-170) UG/DL % Saturation (12.00-45.00) Transferrin (204.0-354.0) mg/dL Alkaline Phosphatase 215 H (38-126) U/L Total Protein (6.3-8.2) g/dL Albumin 3.0 L (3.5-5.0) g/dL Urine Protein 1+ H (Negative) Urine Glucose (UA) 3+ H (Negative) Urine Mucus Rare H (None) /hpf 04/17/23 04/18/23 04/18/23 Range/Units 22:35 05:45 05:45 RBC 3.34 L (3.80-5.40) m/uL Hgb 8.9 L D (11.4-16.0) gm/dL Hct 28.9 L (34.0-46.0) % MCHC 30.8 L (31.0-37.0) g/dL Lymphocytes # 0.9 L (1.0-4.8) k/uL D-Dimer (<0.60) mg/L FEU Sodium 136 L (137-145) mmol/L Carbon Dioxide 19 L (22-30) mmol/L BUN 40 H (7-17) mg/dL Creatinine 1.88 H (0.52-1.04) mg/dL Glucose 185 H (74-99) mg/dL POC Glucose (mg/dL) 230 H (70-110) mg/dL Calcium 8.0 L (8.4-10.2) mg/dL Iron 17 L (50-170) UG/DL % Saturation 6.56 L (12.00-45.00) Transferrin 185.0 L (204.0-354.0) mg/dL Alkaline Phosphatase 183 H (38-126) U/L Total Protein 5.6 L (6.3-8.2) g/dL Albumin 2.5 L (3.5-5.0) g/dL Urine Protein (Negative) Urine Glucose (UA) (Negative) Urine Mucus (None) /hpf 04/18/23 04/18/23 04/18/23 Range/Units 07:38 12:52 13:35 RBC (3.80-5.40) m/uL Hgb (11.4-16.0) gm/dL Hct (34.0-46.0) % MCHC (31.0-37.0) g/dL Lymphocytes # (1.0-4.8) k/uL D-Dimer 1.44 H (<0.60) mg/L FEU Sodium (137-145) mmol/L Carbon Dioxide (22-30) mmol/L BUN (7-17) mg/dL Creatinine (0.52-1.04) mg/dL Glucose (74-99) mg/dL POC Glucose (mg/dL) 235 H 283 H (70-110) mg/dL Calcium (8.4-10.2) mg/dL Iron (50-170) UG/DL % Saturation (12.00-45.00) Transferrin (204.0-354.0) mg/dL Alkaline Phosphatase (38-126) U/L Total Protein (6.3-8.2) g/dL Albumin (3.5-5.0) g/dL Urine Protein (Negative) Urine Glucose (UA) (Negative) Urine Mucus (None) /hpf
[2023-04-18 17:46] LABS: Glucose,Whole Blood 280 mg/dL (70-110)
--- NOTE | 2023-04-18 17:53 | NM ---
EXAMINATION TYPE: NM pul vent and perfuse DATE OF EXAM: 04/18/2023 CLINICAL INDICATION: Female, 57 years old with history of elevated Dimer; COMPARISON: Chest radiograph 04/17/2023. TECHNIQUE: Utilizing inhalation of 67.7 mCi Tc 99m DTPA aerosol and intravenous injection of 5.15 mC i of Tc 99m MAA, ventilation and perfusion images are acquired post injection in multiple projections . FINDINGS: Delayed images demonstrate no perfusion abnormalities of fixed or reversible nature. No segmental def ects are noted. IMPRESSION: PE absent
[2023-04-18 21:33] LABS: Glucose,Whole Blood 219 mg/dL (70-110)
--- NOTE | 2023-04-19 00:20 | CONS ---
CONSULTATION HISTORY OF PRESENT ILLNESS: This is a 57-year-old lady who has been admitted to the hospital with increasing shortness of breath. I was asked to see her in view of new-onset CHF. She came in through the emergency room. She has her healthcare in the [facility] with Dr. Nolen. Her main complaint was that over the last few days she is having increasing shortness of breath, lower extremity edema, and with this she came in to the hospital. She denied any chest discomfort. She has diabetes, which is not under good care. She vapes tobacco on a regular basis, but does not consume alcohol. She has diabetes and hypertension. She is status post some orthopedic surgery and tonsillectomy. MEDICATIONS AT HOME: 1. Carvedilol. 2. Zetia. 3. Atorvastatin. 4. Lisinopril. 5. Demodex. 6. Aldactone. 7. Farxiga. ALLERGIES: None. PHYSICAL EXAMINATION: VITAL SIGNS: Blood pressure is 140/70, pulse rate is about 70 per minute regular. HEENT: Unremarkable. Fundus was not examined. NECK: Supple. There is JVD of at least 1 to 2 cm, no carotid bruit. HEART: Reveals S1, S2, distant heart sound, short systolic murmur. LUNGS: Bilateral diminished air entry. ABDOMEN: Soft, nontender. EXTREMITIES: Lower extremities reveal some areas of scars and some injuries and healing ulcers, but pulses are diminished. NEUROLOGIC: Central nervous system grossly no focal deficits. LABORATORY DATA: Suggest that her BNP is elevated up to 16,000. Her creatinine is up to 1.88. D-dimer was up to 1.44. Hemoglobin is low at 8.9. IMAGING: EKG revealed sinus mechanism, nonspecific ST-T changes with somewhat low voltage. Echocardiograph revealed ejection fraction of about 40% to 45% with global decrease in contractility, severe pulmonary hypertension with right-sided pressures in the mid 60s. IMPRESSION: 1. Exacerbation of congestive heart failure, combination of systolic and diastolic. 2. Pulmonary hypertension. 3. Smoking and COPD. 4. Probable cardiomyopathy of unclear etiology. 5. Type 2 diabetes with chronic kidney disease. RECOMMENDATIONS: We will continue cautious diuresis. Given her elevated D-dimer, I will recommend a V/Q scan. Discussed my thoughts in detail with the patient and explained the importance of smoking and vaping cessation. We will resume most of her home medications. Thank you very much for the consult. JERAMIE / CHELLE: [id number] /
[2023-04-19] MEDS: AMPICILLIN-SULBACTAM 3 GM in SODIUM CHLORIDE 0.9% 100 ML IVPB SCH ×4 (00:27→14:44)
[2023-04-19 07:25] LABS: Glucose,Whole Blood 112 mg/dL (70-110)
[2023-04-19] MEDS: MULTIVITAMINS, THERA 1 EACH TAB PO SCH (07:36)
[2023-04-19] MEDS: ATORVASTATIN 40 MG TAB PO SCH (07:36)
[2023-04-19] MEDS: FUROSEMIDE 10 MG/ML 4 ML VIAL IV SCH ×2 (07:36→21:24)
[2023-04-19] MEDS: carvediloL 12.5 MG TAB PO SCH ×2 (07:36→16:58)
[2023-04-19] MEDS: SERTRALINE 50 MG TAB PO SCH (07:36)
[2023-04-19] MEDS: SPIRONOLACTONE 25 MG TAB PO SCH (07:36)
[2023-04-19] MEDS: INSULIN ASPART (NovoLOG) 100 UNIT/ML VIAL SQ SCH ×4 (07:37→21:23)
[2023-04-19] MEDS: GABAPENTIN 300 MG CAP PO SCH ×4 (07:45→21:24)
--- NOTE | 2023-04-19 07:47 | P.CONS ---
History of Present Illness - Reason for Consult Consult date: 04/18/23 Right lower extremity nonhealing ulcer Requesting physician: Kervin Kaye - Chief Complaint Right heel nonhealing wound x weeks - History of Present Illness Patient is a 57-year-old female with a past medical history significant for diabetes mellitus hypertension hyperlipidemia patient did have a history of chronic nonhealing wound to the right heel area which apparently has been there for about a month and has been taken care of by her primary care physician with some local treatments patient did have a nonhealing of this wound for the patient was advised to go to the hospital patient did have underlying diabetic neuropathy hands denies significant pain to the right heel wound area has been describing to be more of a pressure with nonhealing and also have some clear drainage denies any foul-smelling to it, some swelling to the leg, patient denies high-grade fever with the symptoms the patient presented to the hospital on arrival to the ER the patient was afebrile and no fever have been recorded subsequently patient was not tachycardic hypotensive or hypoxic white count was 6.91, Creatinine is 1.82 liver enzymes are normal urine negative influenza RSV COVID testing was negative patient did have a chest x-ray mild CHF , infectious disease was consulted for further management of antibiotic therapy Review of Systems Positive point and negatives has been mentioned in the HPI, complete review of systems was performed and all other systems are negative Past Medical History Past Medical History: Diabetes Mellitus, Hyperlipidemia, Hypertension Additional Past Medical History / Comment(s): restless leg, neurothopy, Guillain-Gregory History of Any Multi-Drug Resistant Organisms: None Reported Past Surgical History: Orthopedic Surgery, Tonsillectomy Additional Past Surgical History / Comment(s): "plate in left leg to straighten leg as a child" - plate removed, right total hip replacement due to a fracture from a fall Past Anesthesia/Blood Transfusion Reactions: No Reported Reaction Past Psychological History: No Psychological Hx Reported Smoking Status: Vaper Past Alcohol Use History: None Reported Past Drug Use History: None Reported Medications and Allergies Home Medications Medication Instructions Recorded Confirmed Type Atorvastatin [Lipitor] 40 mg PO DAILY 04/17/23 04/17/23 History Dapagliflozin Propanediol [Farxiga] 5 mg PO DAILY 04/17/23 04/17/23 History Ezetimibe [Zetia] 10 mg PO DAILY 04/17/23 04/17/23 History Multivitamins, Thera [Multivitamin 1 tab PO DAILY 04/17/23 04/17/23 History (formulary)] Sertraline [Zoloft] 50 mg PO DIRECTED 04/17/23 04/17/23 History rOPINIRole HCL [Requip] 1 mg PO HS 04/17/23 04/17/23 History Furosemide [Lasix] 60 mg PO BID@0900,1600 #90 tab 05/11/23 Rx Gabapentin [Neurontin] 300 mg PO TID #30 cap 05/11/23 Rx Insulin Detemir [Levemir Flexpen] 15 units SQ DAILY #7 each 05/11/23 Rx Potassium Chloride ER [K-Dur 20] 20 meq PO DAILY #60 tab 05/11/23 Rx carvediloL [Coreg*] 25 mg PO BID@0900,1700 #90 tab 05/11/23 Rx hydrALAZINE HCL [Apresoline] 25 mg PO TID #90 tab 05/11/23 Rx metOLazone [Zaroxolyn] 5 mg PO DAILY #90 tab 05/11/23 Rx Allergies Allergy/AdvReac Type Severity Reaction Status Date / Time No Known Allergies Allergy Verified 04/17/23 19:32 Physical Exam Vitals: Vital Signs Temp Pulse Resp BP Pulse Ox 04/18/23 09:20 76 18 142/81 04/18/23 06:14 98.6 F 75 17 129/64 95 04/18/23 04:00 73 14 143/82 95 04/18/23 00:00 75 17 136/72 96 04/17/23 18:43 70 18 160/79 96 04/17/23 17:35 72 18 138/76 97 04/17/23 14:18 97.4 F L 72 16 133/82 100 Intake and Output 04/17/23 04/18/23 04/18/23 22:59 06:59 14:59 Output Total 100 Balance -100 Output: Urine 100 GENERAL DESCRIPTION: Middle-aged female lying in bed, no distress. No tachypnea or accessory muscle of respiration use. HEENT: Shows Pallor , no scleral icterus. Oral mucous membrane is dry. No pharyngeal erythema or thrush NECK: Trachea central, no thyromegaly. LUNGS: Unlabored breathing. Clear to auscultation anteriorly. No wheeze or crackle. HEART: S1, S2, regular rate and rhythm. No loud murmur ABDOMEN: Soft, no tenderness , guarding or rigidity, no organomegaly EXTREMITIES: Right heel wound which is deep with minimal surrounding swelling redness and drainage SKIN: No rash, no masses palpable. NEUROLOGICAL: The patient is awake, alert, oriented x3, mood and affect normal. Results CBC & Chem 7: 05/11/23 11:04 05/11/23 11:04 Labs: Abnormal Lab Results - Last 24 Hours (Table) 04/17/23 04/17/23 04/17/23 Range/Units 14:23 14:23 17:34 RBC (3.80-5.40) m/uL Hgb 10.4 L (11.4-16.0) gm/dL Hct 33.2 L (34.0-46.0) % MCHC (31.0-37.0) g/dL Lymphocytes # 0.9 L (1.0-4.8) k/uL Sodium (137-145) mmol/L Carbon Dioxide (22-30) mmol/L BUN 42 H (7-17) mg/dL Creatinine 1.82 H (0.52-1.04) mg/dL Glucose 147 H (74-99) mg/dL POC Glucose (mg/dL) (70-110) mg/dL Calcium 8.2 L (8.4-10.2) mg/dL Alkaline Phosphatase 215 H (38-126) U/L Total Protein (6.3-8.2) g/dL Albumin 3.0 L (3.5-5.0) g/dL Urine Protein 1+ H (Negative) Urine Glucose (UA) 3+ H (Negative) Urine Mucus Rare H (None) /hpf 04/17/23 04/18/23 04/18/23 Range/Units 22:35 05:45 05:45 RBC 3.34 L (3.80-5.40) m/uL Hgb 8.9 L D (11.4-16.0) gm/dL Hct 28.9 L (34.0-46.0) % MCHC 30.8 L (31.0-37.0) g/dL Lymphocytes # 0.9 L (1.0-4.8) k/uL Sodium 136 L (137-145) mmol/L Carbon Dioxide 19 L (22-30) mmol/L BUN 40 H (7-17) mg/dL Creatinine 1.88 H (0.52-1.04) mg/dL Glucose 185 H (74-99) mg/dL POC Glucose (mg/dL) 230 H (70-110) mg/dL Calcium 8.0 L (8.4-10.2) mg/dL Alkaline Phosphatase 183 H (38-126) U/L Total Protein 5.6 L (6.3-8.2) g/dL Albumin 2.5 L (3.5-5.0) g/dL Urine Protein (Negative) Urine Glucose (UA) (Negative) Urine Mucus (None) /hpf 04/18/23 Range/Units 07:38 RBC (3.80-5.40) m/uL Hgb (11.4-16.0) gm/dL Hct (34.0-46.0) % MCHC (31.0-37.0) g/dL Lymphocytes # (1.0-4.8) k/uL Sodium (137-145) mmol/L Carbon Dioxide (22-30) mmol/L BUN (7-17) mg/dL Creatinine (0.52-1.04) mg/dL Glucose (74-99) mg/dL POC Glucose (mg/dL) 235 H (70-110) mg/dL Calcium (8.4-10.2) mg/dL Alkaline Phosphatase (38-126) U/L Total Protein (6.3-8.2) g/dL Albumin (3.5-5.0) g/dL Urine Protein (Negative) Urine Glucose (UA) (Negative) Urine Mucus (None) /hpf Assessment and Plan (1) Pressure ulcer of right heel, stage 3 Status: Acute Code(s): L89.613 - PRESSURE ULCER OF RIGHT HEEL, STAGE 3 SNOMED Code(s): 67463926911407 (2) Type 2 diabetes mellitus with foot ulcer Status: Acute Code(s): E11.621 - TYPE 2 DIABETES MELLITUS WITH FOOT ULCER; L97.509 - NON-PRESSURE CHRONIC ULCER OTH PRT UNSP FOOT W UNSP SEVERITY SNOMED Code(s): 217369108 Plan: 1patient presented to hospital with a chronic nonhealing wound to the right heel area which apparently has been there for more than a month failing outpatient oral local treatment, did not mention she received any antibiotic therapy we will need to cover for the polymicrobial ananya usually associated with diabetic foot infection 2-deep culture has been obtained to guide further antibiotic therapy 3-we will also obtain x-rays and reports continuation of evidence of any osteomyelitis and check inflammatory markers 4-patient with renal insufficiency and high risk of nephrotoxicity 5-we will start the patient on Unasyn 3 g every 6 hours 6-local wound care per wound care team We will follow on clinical condition and cultures to further adjust medication if needed Thank you for this consultation we will follow the patient along with you Dictation was produced using [employer] dictation software. please excuse any grammatical, word or spelling errors. Time with Patient: Greater than 30
[2023-04-19] MEDS: ENOXAPARIN 30 MG/0.3 ML SYRINGE SQ SCH (09:51)
[2023-04-19 10:29] LABS: Basophils % (A) 1 %; Eosinophils # (A) 0.2 k/uL (0-0.7); Eosinophils % (A) 4 %; HGB 9.5 gm/dL (11.4-16.0); Hypochromasia Marked; Lymphocytes % (A) 18 %; MCH 26.2 pg (25.0-35.0); MCHC 30.8 g/dL (31.0-37.0); MCV 85.1 fL (80.0-100.0); Mean Platelet Volume 8.7; Monocytes # (A) 0.3 k/uL (0-1.0); Monocytes % (A) 6 %; Neutrophils # (A) 4.1 k/uL (1.3-7.7); Neutrophils % (A) 70 %; Platelet Count 284 k/uL (150-450); RBC 3.64 m/uL (3.80-5.40); RDW 14.8 % (11.5-15.5); WBC 5.8 k/uL (3.8-10.6)
[2023-04-19] MEDS: amLODIPine 5 MG TAB PO SCH (10:48)
[2023-04-19 10:52] LABS: African American GFR (CKD) 34 (>60 ml/min/1.73 sqM); Anion Gap 8 mmol/L; Blood Urea Nitrogen 38 mg/dL (7-17); C Reactive Protein 1.8 mg/dL (<1.0); Calcium 8.2 mg/dL (8.4-10.2); Carbon Dioxide 22 mmol/L (22-30); Chloride 105 mmol/L (98-107); Glucose 117 mg/dL (74-99); Non-African American GFR(CKD) 30 (>60 ml/min/1.73 sqM); Potassium 5.3 mmol/L (3.5-5.1); Sodium 135 mmol/L (137-145)
[2023-04-19 12:07] LABS: Glucose,Whole Blood 156 mg/dL (70-110)
--- NOTE | 2023-04-19 13:45 | P.PN ---
Subjective Progress Note Date: 04/19/23 No new complaints. Pt reports still feeling dyspneic with exertion but this is improving. Gen: awake, alert HEENT: normocephalic, atraumatic, good hearing acuity, moist mucous membranes Resp: good air exchange, breathing comfortably with no accessory muscle use CVS: good distal perfusion x 4, GI: soft, NTTP, ND : no SPT, no CVAT, solis catheter not present MSK: no pitting edema, no clubbing Neuro: non-focal, moving all extremities Psych: cooperative, euthymic mood Hospital Course: Patient is a 57-year-old female with a PMH of type II DM completed by peripheral neuropathy with chronic nonhealing right foot ulcers, hypertension, hyperlipidemia who was sent in to the emergency room from her PCPs clinic for concerns of fluid overload. Chest x-ray in the emergency room was consistent with fluid overload. EKG revealed sinus rhythm short AL interval a 71 bpm with no other ST/T-wave changes noted as reviewed by me. Laboratory evaluation revealed BUN of 42, creatinine 1.82 (no baseline available for comparison), proBNP 16,800, glucose 147, an unremarkable UA and a negative respiratory viral panel pending. Assessment: Acute CHF exacerbation Kidney injury, acute versus chronic Diabetic right foot ulcers, chronic Normocytic anemia, no baseline available for comparison Chronic conditions: Hypertension, hyperlipidemia Plan: Continue with Lasix 40 mg IV every 12 hourly Cardiology consulted Cardiac monitoring Intake and output Daily weights Obtain echocardiogram Wound care and infectious disease consulted, pt started on unasyn Obtain anemia workup Continue with home medications Monitor BMP DVT prophylaxis: Lovenox subcu The patient is admitted with an anticipated les than 2 midnight stay for evaluation of CHF CODE STATUS: Full Code Discussed with: Patient Anticipated discharge place: Home Objective - Vital Signs Vital signs: Vital Signs Temp 97.8 F 04/18/23 21:16 Pulse 77 04/19/23 10:49 Resp 20 04/19/23 10:49 BP 138/77 04/19/23 10:49 Pulse Ox 98 04/19/23 10:49 FiO2 Intake & Output 04/18/23 04/19/23 04/19/23 18:59 06:59 18:59 Intake Total 600 Balance 600 Intake: Oral 600 - Labs CBC & Chem 7: 04/19/23 10:01 04/19/23 10:01 Labs: Abnormal Lab Results - Last 24 Hours (Table) 04/18/23 04/18/23 04/18/23 Range/Units 13:35 17:45 21:22 RBC (3.80-5.40) m/uL Hgb (11.4-16.0) gm/dL Hct (34.0-46.0) % MCHC (31.0-37.0) g/dL D-Dimer 1.44 H (<0.60) mg/L FEU Sodium (137-145) mmol/L Potassium (3.5-5.1) mmol/L BUN (7-17) mg/dL Creatinine (0.52-1.04) mg/dL Glucose (74-99) mg/dL POC Glucose (mg/dL) 280 H 219 H (70-110) mg/dL Calcium (8.4-10.2) mg/dL C-Reactive Protein (<1.0) mg/dL 04/19/23 04/19/23 04/19/23 Range/Units 07:23 10:01 10:01 RBC 3.64 L (3.80-5.40) m/uL Hgb 9.5 L (11.4-16.0) gm/dL Hct 31.0 L (34.0-46.0) % MCHC 30.8 L (31.0-37.0) g/dL D-Dimer (<0.60) mg/L FEU Sodium 135 L (137-145) mmol/L Potassium 5.3 H (3.5-5.1) mmol/L BUN 38 H (7-17) mg/dL Creatinine 1.84 H (0.52-1.04) mg/dL Glucose 117 H (74-99) mg/dL POC Glucose (mg/dL) 112 H (70-110) mg/dL Calcium 8.2 L (8.4-10.2) mg/dL C-Reactive Protein 1.8 H (<1.0) mg/dL 04/19/23 Range/Units 12:06 RBC (3.80-5.40) m/uL Hgb (11.4-16.0) gm/dL Hct (34.0-46.0) % MCHC (31.0-37.0) g/dL D-Dimer (<0.60) mg/L FEU Sodium (137-145) mmol/L Potassium (3.5-5.1) mmol/L BUN (7-17) mg/dL Creatinine (0.52-1.04) mg/dL Glucose (74-99) mg/dL POC Glucose (mg/dL) 156 H (70-110) mg/dL Calcium (8.4-10.2) mg/dL C-Reactive Protein (<1.0) mg/dL Microbiology - Last 24 Hours (Table) 04/18/23 13:30 Gram Stain - Preliminary Foot - Right
--- NOTE | 2023-04-19 14:41 | NM ---
EXAMINATION TYPE: NM bone 3 phase DATE OF EXAM: 04/19/2023 COMPARISON: Plain film 04/18/2023. CLINICAL INDICATION: Female, 57 years old with history of right heel ulcer , diabetic ?osteo; Triple phase bone scintigraphy was performed following the injection of 23.3 mCi Tc 99m MDP. Immedia te images and 6 hours post injection images acquired. FINDINGS: Increased radiotracer uptake within the right heel on blood pool and delayed imaging not really appre ciated on flow. There is increased radiotracer uptake within the left midfoot on delayed imaging sugg estive of degeneration. IMPRESSION: Uptake around the heel suggestive of cellulitis. No definitive evidence for osteitis. There is also u ptake suspected to represent degeneration changes of the left midfoot.
[2023-04-19 16:13] LABS: Glucose,Whole Blood 181 mg/dL (70-110)
--- NOTE | 2023-04-19 16:13 | P.PN ---
Subjective Progress Note Date: 04/19/23 Principal diagnosis: Reason for follow-up his right heel diabetic foot infection and wound Patient is a 57-year-old female with a past medical history significant for diabetes mellitus hypertension hyperlipidemia patient did have a history of chronic nonhealing wound to the right heel area, patient was sent to the ER for nonhealing of the wound concerning for possible deep infection. On today's evaluation that is 04/19/2023, the patient remains to be afebrile patient is breathing comfortably on room air denies any chest pain shortness of breath or cough no nausea vomiting no abdominal pain or diarrhea denies any worsening pain to the right heel wound. The patient did have vital of 5.8 creatinine is 1.84 CRP is 1.8 cultures are pending x-ray did not show any bony changes both scan is pending Objective - Vital Signs Vital signs: Vital Signs Temp 97.8 F 04/18/23 21:16 Pulse 77 04/19/23 10:49 Resp 20 04/19/23 10:49 BP 138/77 04/19/23 10:49 Pulse Ox 98 04/19/23 10:49 FiO2 Intake & Output 04/18/23 04/19/23 04/19/23 18:59 06:59 18:59 Intake Total 600 Balance 600 Intake: Oral 600 - Exam GENERAL DESCRIPTION: Middle-aged female lying in bed in no distress RESPIRATORY SYSTEM: Unlabored breathing , decreased breath sounds at bases HEART: S1 S2 regular rate and rhythm , ABDOMEN: Soft , no tenderness EXTREMITIES: Right heel wound is currently dressed - Labs CBC & Chem 7: 04/19/23 10:01 04/19/23 10:01 Labs: Abnormal Lab Results - Last 24 Hours (Table) 04/18/23 04/18/23 04/18/23 Range/Units 05:45 12:52 13:35 RBC (3.80-5.40) m/uL Hgb (11.4-16.0) gm/dL Hct (34.0-46.0) % MCHC (31.0-37.0) g/dL D-Dimer 1.44 H (<0.60) mg/L FEU Sodium (137-145) mmol/L Potassium (3.5-5.1) mmol/L BUN (7-17) mg/dL Creatinine (0.52-1.04) mg/dL Glucose (74-99) mg/dL POC Glucose (mg/dL) 283 H (70-110) mg/dL Calcium (8.4-10.2) mg/dL Iron 17 L (50-170) UG/DL % Saturation 6.56 L (12.00-45.00) Transferrin 185.0 L (204.0-354.0) mg/dL C-Reactive Protein (<1.0) mg/dL 04/18/23 04/18/23 04/19/23 Range/Units 17:45 21:22 07:23 RBC (3.80-5.40) m/uL Hgb (11.4-16.0) gm/dL Hct (34.0-46.0) % MCHC (31.0-37.0) g/dL D-Dimer (<0.60) mg/L FEU Sodium (137-145) mmol/L Potassium (3.5-5.1) mmol/L BUN (7-17) mg/dL Creatinine (0.52-1.04) mg/dL Glucose (74-99) mg/dL POC Glucose (mg/dL) 280 H 219 H 112 H (70-110) mg/dL Calcium (8.4-10.2) mg/dL Iron (50-170) UG/DL % Saturation (12.00-45.00) Transferrin (204.0-354.0) mg/dL C-Reactive Protein (<1.0) mg/dL 04/19/23 04/19/23 Range/Units 10:01 10:01 RBC 3.64 L (3.80-5.40) m/uL Hgb 9.5 L (11.4-16.0) gm/dL Hct 31.0 L (34.0-46.0) % MCHC 30.8 L (31.0-37.0) g/dL D-Dimer (<0.60) mg/L FEU Sodium 135 L (137-145) mmol/L Potassium 5.3 H (3.5-5.1) mmol/L BUN 38 H (7-17) mg/dL Creatinine 1.84 H (0.52-1.04) mg/dL Glucose 117 H (74-99) mg/dL POC Glucose (mg/dL) (70-110) mg/dL Calcium 8.2 L (8.4-10.2) mg/dL Iron (50-170) UG/DL % Saturation (12.00-45.00) Transferrin (204.0-354.0) mg/dL C-Reactive Protein 1.8 H (<1.0) mg/dL Microbiology - Last 24 Hours (Table) 04/18/23 13:30 Gram Stain - Preliminary Foot - Right Assessment and Plan (1) Cellulitis Current Visit: Yes Status: Acute Code(s): L03.90 - CELLULITIS, UNSPECIFIED SNOMED Code(s): 233818272 (2) Pressure ulcer of right heel, stage 3 Current Visit: Yes Status: Acute Code(s): L89.613 - PRESSURE ULCER OF RIGHT HEEL, STAGE 3 SNOMED Code(s): 47755827250432 (3) Type 2 diabetes mellitus with foot ulcer Current Visit: Yes Status: Acute Code(s): E11.621 - TYPE 2 DIABETES MELLITUS WITH FOOT ULCER; L97.509 - NON-PRESSURE CHRONIC ULCER OTH PRT UNSP FOOT W UNSP SEVERITY SNOMED Code(s): 174561450 Plan: 1patient presented to hospital with a chronic nonhealing wound to the right heel area which apparently has been there for more than a month failing outpatient oral local treatment, did not mention she received any antibiotic therapy we will need to cover for the polymicrobial ananya usually associated with diabetic foot infection 2deep cultures obtained currently pending x-rays were negative for any bony changes both skin is currently pending. 3we will keep the patient on Unasyn while waiting for the culture to finalize and monitor clinical course closely Dictation was produced using [employer] software. please excuse any grammatical, word or spelling errors.
--- NOTE | 2023-04-19 16:15 | US ---
EXAMINATION TYPE: US venous doppler duplex LE LT DATE OF EXAM: 04/19/2023 3:18 PM COMPARISON: NONE CLINICAL INDICATION: Female, 57 years old with history of r/o DVT; left leg edema SIDE PERFORMED: Left TECHNIQUE: The lower extremity deep venous system is examined utilizing real time linear array sonog star with graded compression, doppler sonography and color-flow sonography. VESSELS IMAGED: Common Femoral Vein Deep Femoral Vein Greater Saphenous Vein * Femoral Vein Popliteal Vein Small Saphenous Vein * Proximal Calf Veins (* superficial vessels) Left Leg: Negative for DVT patient has pitting edema and unable to visualize Lt FV w/o color IMPRESSION: 1. No evidence for deep vein thrombosis. 2. Edema throughout the lower extremities.
[2023-04-19] MEDS: NICOTINE 14MG/24HR PATCH TRANSDERM SCH (17:01)
[2023-04-19] MEDS: ACETAMINOPHEN TAB 325 MG TAB PO PRN (18:51)
[2023-04-19 19:59] LABS: Glucose,Whole Blood 301 mg/dL (70-110)
[2023-04-20] MEDS: AMPICILLIN-SULBACTAM 3 GM in SODIUM CHLORIDE 0.9% 100 ML IVPB SCH ×2 (00:28→12:58)
[2023-04-20 02:18] LABS: Erythrocyte Sedimentation Rate 34 mm/Hr (0-30)
[2023-04-20 06:10] LABS: Glucose,Whole Blood 292 mg/dL (70-110)
[2023-04-20] MEDS: INSULIN ASPART (NovoLOG) 100 UNIT/ML VIAL SQ SCH ×4 (06:34→20:48)
--- NOTE | 2023-04-20 06:44 | PN ---
PROGRESS NOTE SUBJECTIVE: This is a 57-year-old lady who was admitted yesterday with increasing shortness of breath and some weight gain. She has history of smoking and a clinical picture that suggests pulmonary hypertension and mild congestive heart failure. I was concerned about her elevated D-dimer and we performed a lung perfusion scan which revealed no evidence of any significant perfusion defects. She also has foot ulcers and possibility of infection. Echo revealed ejection fraction of about 45% to 40% with moderate global decrease in contractility, severe pulmonary hypertension and right- sided pressures of 66 mmHg. She is feeling better somewhat. I am recommending that we continue her current medical regimen at this time. I am adding amlodipine 5 mg daily. Ejection fraction is about 45%. She will continue carvedilol, atorvastatin, and intravenous Lasix. From a cardiac standpoint, she is fairly stable and optimized. I think further pulmonary management in terms of pulmonary hypertension need to be addressed. We also discussed smoking cessation as well. OBJECTIVE: VITAL SIGNS: Revealed blood pressure of 130/70, pulse rate 77 per minute and regular. NECK: JVD 1 to 2 cm, no carotid bruit. HEART: S1, S2 heard normally, short systolic murmur left sternal border. LUNGS: Reveal bilateral diminished air entry. ABDOMEN: Soft, nontender. EXTREMITIES: Lower extremities reveal diminished pulses. NEUROLOGIC: Central nervous system grossly within normal limits. RECOMMENDATIONS: Continue current medical regimen. I will add amlodipine and also will request Pulmonary evaluation. MMODL / IJN: [id number] /
[2023-04-20] MEDS: SPIRONOLACTONE 25 MG TAB PO SCH (08:35)
[2023-04-20] MEDS: ATORVASTATIN 40 MG TAB PO SCH (08:35)
[2023-04-20] MEDS: GABAPENTIN 300 MG CAP PO SCH ×4 (08:35→20:48)
[2023-04-20] MEDS: carvediloL 12.5 MG TAB PO SCH ×2 (08:36→16:57)
[2023-04-20] MEDS: MULTIVITAMINS, THERA 1 EACH TAB PO SCH (08:36)
[2023-04-20] MEDS: SERTRALINE 50 MG TAB PO SCH (08:36)
[2023-04-20] MEDS: amLODIPine 5 MG TAB PO SCH (08:36)
[2023-04-20] MEDS: ENOXAPARIN 30 MG/0.3 ML SYRINGE SQ SCH (08:36)
[2023-04-20] MEDS: FUROSEMIDE 10 MG/ML 4 ML VIAL IV SCH (08:36)
[2023-04-20] MEDS: NICOTINE 14MG/24HR PATCH TRANSDERM SCH (08:37)
--- NOTE | 2023-04-20 11:34 | P.PN ---
Subjective Progress Note Date: 04/20/23 No new complaints. Gen: awake, alert HEENT: normocephalic, atraumatic, good hearing acuity, moist mucous membranes Resp: good air exchange, breathing comfortably with no accessory muscle use CVS: good distal perfusion x 4, GI: soft, NTTP, ND : no SPT, no CVAT, solis catheter not present MSK: no pitting edema, no clubbing Neuro: non-focal, moving all extremities Psych: cooperative, euthymic mood Hospital Course: Patient is a 57-year-old female with a PMH of type II DM completed by peripheral neuropathy with chronic nonhealing right foot ulcers, hypertension, hyperlipidemia who was sent in to the emergency room from her PCPs clinic for concerns of fluid overload. Chest x-ray in the emergency room was consistent with fluid overload. EKG revealed sinus rhythm short AK interval a 71 bpm with no other ST/T-wave changes noted as reviewed by me. Laboratory evaluation revealed BUN of 42, creatinine 1.82 (no baseline available for comparison), proBNP 16,800, glucose 147, an unremarkable UA and a negative respiratory viral panel pending. Assessment: Acute CHF exacerbation Kidney injury, acute versus chronic Diabetic right foot ulcers, chronic Normocytic anemia, no baseline available for comparison Chronic conditions: Hypertension, hyperlipidemia Plan: Continue with Lasix 40 mg IV every 12 hourly Cardiology consulted Cardiac monitoring Intake and output Daily weights Obtain echocardiogram Wound care and infectious disease consulted, continue unasyn Foot CX growing GNB, Enterococcus group D Obtain anemia workup Continue with home medications Monitor BMP DVT prophylaxis: Lovenox subcu The patient is admitted with an anticipated les than 2 midnight stay for evaluation of CHF CODE STATUS: Full Code Discussed with: Patient Anticipated discharge place: Home Objective - Vital Signs Vital signs: Vital Signs Temp 97.7 F 04/20/23 08:00 Pulse 76 04/20/23 10:13 Resp 17 04/20/23 10:13 BP 127/69 04/20/23 08:00 Pulse Ox 94 L 04/20/23 08:00 FiO2 Intake & Output 04/19/23 04/20/23 04/20/23 18:59 06:59 18:59 Intake Total 1168 180 Output Total 300 0 225 Balance 868 0 -45 Weight 74.843 kg 69.9 kg Intake: Oral 1168 180 Output: Urine 300 225 Post Void Residual 0 Other: Voiding Method Bedside Commode Toilet Toilet Bedside Commode Bedside Commode # Voids 1 0 - Labs CBC & Chem 7: 04/19/23 10:01 04/19/23 10:01 Labs: Abnormal Lab Results - Last 24 Hours (Table) 04/18/23 04/19/23 04/19/23 Range/Units 05:45 10:01 12:06 ESR 34 H (0-30) mm/Hr POC Glucose (mg/dL) 156 H (70-110) mg/dL RBC Folate 926 H (280 - 791) ng/mL 04/19/23 04/19/23 04/20/23 Range/Units 16:12 19:58 06:09 ESR (0-30) mm/Hr POC Glucose (mg/dL) 181 H 301 H 292 H (70-110) mg/dL RBC Folate (280 - 791) ng/mL Microbiology - Last 24 Hours (Table) 04/18/23 13:30 Gram Stain - Preliminary Foot - Right Wound Culture - Preliminary Gram Neg Bacilli Group D Enterococcus 04/18/23 13:35 Blood Culture - Preliminary Blood 04/18/23 14:00 Blood Culture - Preliminary Blood
[2023-04-20 11:38] LABS: Glucose,Whole Blood 318 mg/dL (70-110)
[2023-04-20] MEDS ORDERED: INSULIN DETEMIR (LEVEMIR) 100 UNIT/ML SYR SQ STA (12:02)
--- NOTE | 2023-04-20 14:30 | P.PN ---
Subjective Progress Note Date: 04/20/23 The patient is a 57-year-old female who is admitted with acute heart failure exacerbation. Echocardiogram revealed ejection fraction of 40-45% with global hypokinesis and severe pulmonary hypertension. Patient has diuresed over the course of her admission. She states her breathing has improved but she still gets short of breath with ambulation. No chest pain or chest pressure. No dizziness or lightheadedness. GENERAL: Well-appearing, well-nourished and in no acute distress. NECK: Supple without JVD or thyromegaly. LUNGS: Breath sounds diminished to auscultation bilaterally. Respiration equal and unlabored. No wheezes, rales or rhonchi. HEART: Regular rate and rhythm without murmurs, rubs or gallops. S1 and S2 heard. EXTREMITIES: Normal range of motion, mild- moderate bilateral lower extremity edema, worse on the left. Wound noted on right foot. Bruising on left calf TELEMETRY: Sinus rhythm overnight IMPRESSION: Congestive heart failure exacerbation, systolic and diastolic Cardiomyopathy, undetermined Pulmonary hypertension History of smoking and COPD Type 2 diabetes Chronic kidney disease PLAN: Discontinue amlodipine Maximize carvedilol for blood pressure management cardiomyopathy Outpatient right and left heart cath to evaluate pulmonary hypertension Further recommendations replacement clinical course I am dictating on behalf of Dr Kemal Givens's history/physical and a ssessment/plan. Objective - Vital Signs Vital signs: Vital Signs Temp 97.7 F 04/20/23 08:00 Pulse 71 04/20/23 14:16 Resp 18 04/20/23 14:16 BP 130/74 04/20/23 11:37 Pulse Ox 97 04/20/23 11:37 FiO2 Intake & Output 04/19/23 04/20/23 04/20/23 18:59 06:59 18:59 Intake Total 1168 360 Output Total 300 0 625 Balance 868 0 -265 Weight 74.843 kg 69.9 kg Intake: Oral 1168 360 Output: Urine 300 625 Post Void Residual 0 Other: Voiding Method Bedside Commode Toilet Toilet Bedside Commode Bedside Commode # Voids 1 0 - Labs CBC & Chem 7: 04/19/23 10:01 04/19/23 10:01 Labs: Abnormal Lab Results - Last 24 Hours (Table) 04/19/23 04/19/23 04/19/23 Range/Units 10:01 16:12 19:58 ESR 34 H (0-30) mm/Hr POC Glucose (mg/dL) 181 H 301 H (70-110) mg/dL 04/20/23 04/20/23 Range/Units 06:09 11:36 ESR (0-30) mm/Hr POC Glucose (mg/dL) 292 H 318 H (70-110) mg/dL Microbiology - Last 24 Hours (Table) 04/18/23 13:30 Gram Stain - Preliminary Foot - Right Wound Culture - Preliminary Gram Neg Bacilli Group D Enterococcus 04/18/23 13:35 Blood Culture - Preliminary Blood 04/18/23 14:00 Blood Culture - Preliminary Blood
[2023-04-20 16:28] LABS: Glucose,Whole Blood 223 mg/dL (70-110)
[2023-04-20 19:52] LABS: Glucose,Whole Blood 194 mg/dL (70-110)
[2023-04-20] MEDS: ACETAMINOPHEN TAB 325 MG TAB PO PRN (20:47)
[2023-04-21] MEDS: AMPICILLIN-SULBACTAM 3 GM in SODIUM CHLORIDE 0.9% 100 ML IVPB SCH (00:06)
[2023-04-21] MEDS: ACETAMINOPHEN TAB 325 MG TAB PO PRN ×2 (04:01→21:38)
[2023-04-21 05:52] LABS: Glucose,Whole Blood 125 mg/dL (70-110)
[2023-04-21] MEDS: INSULIN ASPART (NovoLOG) 100 UNIT/ML VIAL SQ SCH ×4 (06:07→20:32)
[2023-04-21] MEDS: INSULIN DETEMIR (LEVEMIR) 100 UNIT/ML SYR SQ SCH (06:19)
--- NOTE | 2023-04-21 07:16 | P.PN ---
Subjective Progress Note Date: 04/20/23 Principal diagnosis: Reason for follow-up his right heel diabetic foot infection and wound Patient is a 57-year-old female with a past medical history significant for diabetes mellitus hypertension hyperlipidemia patient did have a history of chronic nonhealing wound to the right heel area, patient was sent to the ER for nonhealing of the wound concerning for possible deep infection. On today's evaluation that is 04/20/2023 the patient continues to be afebrile the patient is breathing comfortably on room air without need for supplemental oxygen the patient denies chest pain shortness of breath or cough no nausea no renal abdominal pain or diarrhea patient has pain to the right heel wound. No new labs has been obtained today local culture growing gram-negative and group D Enterococcus with sensitivities pending. Objective - Vital Signs Vital signs: Vital Signs Temp 97.7 F 04/20/23 08:00 Pulse 71 04/20/23 11:37 Resp 18 04/20/23 11:37 BP 130/74 04/20/23 11:37 Pulse Ox 97 04/20/23 11:37 FiO2 Intake & Output 04/19/23 04/20/23 04/20/23 18:59 06:59 18:59 Intake Total 1168 180 Output Total 300 0 225 Balance 868 0 -45 Weight 74.843 kg 69.9 kg Intake: Oral 1168 180 Output: Urine 300 225 Post Void Residual 0 Other: Voiding Method Bedside Commode Toilet Toilet Bedside Commode Bedside Commode # Voids 1 0 - Labs CBC & Chem 7: 04/19/23 10:01 04/19/23 10:01 Labs: Abnormal Lab Results - Last 24 Hours (Table) 04/18/23 04/19/23 04/19/23 Range/Units 05:45 10:01 12:06 ESR 34 H (0-30) mm/Hr POC Glucose (mg/dL) 156 H (70-110) mg/dL RBC Folate 926 H (280 - 791) ng/mL 04/19/23 04/19/23 04/20/23 Range/Units 16:12 19:58 06:09 ESR (0-30) mm/Hr POC Glucose (mg/dL) 181 H 301 H 292 H (70-110) mg/dL RBC Folate (280 - 791) ng/mL 04/20/23 Range/Units 11:36 ESR (0-30) mm/Hr POC Glucose (mg/dL) 318 H (70-110) mg/dL RBC Folate (280 - 791) ng/mL Microbiology - Last 24 Hours (Table) 04/18/23 13:30 Gram Stain - Preliminary Foot - Right Wound Culture - Preliminary Gram Neg Bacilli Group D Enterococcus 04/18/23 13:35 Blood Culture - Preliminary Blood 04/18/23 14:00 Blood Culture - Preliminary Blood Assessment and Plan (1) Cellulitis Current Visit: Yes Status: Acute Code(s): L03.90 - CELLULITIS, UNSPECIFIED SNOMED Code(s): 764446847 (2) Pressure ulcer of right heel, stage 3 Current Visit: Yes Status: Acute Code(s): L89.613 - PRESSURE ULCER OF RIGHT HEEL, STAGE 3 SNOMED Code(s): 07554073879449 (3) Type 2 diabetes mellitus with foot ulcer Current Visit: Yes Status: Acute Code(s): E11.621 - TYPE 2 DIABETES MELLITUS WITH FOOT ULCER; L97.509 - NON-PRESSURE CHRONIC ULCER OTH PRT UNSP FOOT W UNSP SEVERITY SNOMED Code(s): 237735285 Plan: 1patient presented to hospital with a chronic nonhealing wound to the right heel area which apparently has been there for more than a month failing outpatient oral local treatment, did not mention she received any antibiotic therapy we will need to cover for the polymicrobial ananya usually associated with diabetic foot infection 2cultures are currently growing gram-negative and group D Enterococcus with sensitivities pending x-ray did not show any bony destruction and the bonescan was negative for osteomyelitis 3we will keep the patient on Unasyn waiting for the culture to finalize determine her discharge antibiotics more likely oral Dictation was produced using [employer] dictation software. please excuse any grammatical, word or spelling errors. Time with Patient: Less than 30
[2023-04-21] MEDS: SERTRALINE 50 MG TAB PO SCH (08:40)
[2023-04-21] MEDS: PIPERACILLIN-TAZOBACTAM 3.375 GM in SODIUM CHLORIDE 0.9% 100 ML IVPB SCH ×3 (08:40→23:44)
[2023-04-21] MEDS: ATORVASTATIN 40 MG TAB PO SCH (08:40)
[2023-04-21] MEDS: ENOXAPARIN 30 MG/0.3 ML SYRINGE SQ SCH (08:40)
[2023-04-21] MEDS: GABAPENTIN 300 MG CAP PO SCH ×4 (08:40→20:32)
[2023-04-21] MEDS: carvediloL 12.5 MG TAB PO SCH ×2 (08:40→16:44)
[2023-04-21] MEDS: NICOTINE 14MG/24HR PATCH TRANSDERM SCH (08:40)
[2023-04-21] MEDS: SPIRONOLACTONE 25 MG TAB PO SCH (08:40)
[2023-04-21] MEDS: MULTIVITAMINS, THERA 1 EACH TAB PO SCH (08:40)
[2023-04-21] MEDS: TORSEMIDE 20 MG TAB PO SCH (08:40)
--- NOTE | 2023-04-21 10:20 | P.PN ---
Subjective Progress Note Date: 04/21/23 No new complaints. Gen: awake, alert HEENT: normocephalic, atraumatic, good hearing acuity, moist mucous membranes Resp: good air exchange, breathing comfortably with no accessory muscle use CVS: good distal perfusion x 4, GI: soft, NTTP, ND : no SPT, no CVAT, solis catheter not present MSK: no pitting edema, no clubbing Neuro: non-focal, moving all extremities Psych: cooperative, euthymic mood Hospital Course: Patient is a 57-year-old female with a PMH of type II DM completed by peripheral neuropathy with chronic nonhealing right foot ulcers, hypertension, hyperlipidemia who was sent in to the emergency room from her PCPs clinic for concerns of fluid overload. Chest x-ray in the emergency room was consistent with fluid overload. EKG revealed sinus rhythm short DC interval a [address] other ST/T-wave changes noted as reviewed by me. Laboratory evaluation revealed BUN of 42, creatinine 1.82 (no baseline available for comparison), proBNP 16,800, glucose 147, an unremarkable UA and a negative respiratory viral panel pending. Assessment: Acute CHF exacerbation Kidney injury, acute versus chronic Diabetic right foot ulcers, chronic Normocytic anemia, no baseline available for comparison Chronic conditions: Hypertension, hyperlipidemia Plan: Continue with Lasix 40 mg IV every 12 hourly Cardiology consulted, discontinued amlodipine, maximize carvedilol Cardiac monitoring Intake and output Daily weights Obtain echocardiogram Wound care and infectious disease consulted, and Unasyn discontinued, continue Zosyn Foot CX growing Pseudomonas, Enterococcus group D Obtain anemia workup Continue with home medications Monitor BMP DVT prophylaxis: Lovenox subcu The patient is admitted with an anticipated les than 2 midnight stay for evaluation of CHF CODE STATUS: Full Code Discussed with: Patient Anticipated discharge place: Home Objective - Vital Signs Vital signs: Vital Signs Temp 98 F 04/21/23 08:00 Pulse 69 04/21/23 08:00 Resp 18 04/21/23 08:00 BP 130/73 04/21/23 08:00 Pulse Ox 97 04/21/23 08:00 FiO2 Intake & Output 04/20/23 04/21/23 04/21/23 18:59 06:59 18:59 Intake Total 540 540 180 Output Total 625 300 Balance -85 240 180 Intake: Oral 540 540 180 Output: Urine 625 300 Other: Voiding Method Toilet Toilet Bedside Commode Bedside Commode - Labs CBC & Chem 7: 04/19/23 10:01 04/19/23 10:01 Labs: Abnormal Lab Results - Last 24 Hours (Table) 04/20/23 04/20/23 04/20/23 Range/Units 11:36 16:27 19:50 POC Glucose (mg/dL) 318 H 223 H 194 H (70-110) mg/dL 04/21/23 Range/Units 05:51 POC Glucose (mg/dL) 125 H (70-110) mg/dL Microbiology - Last 24 Hours (Table) 04/18/23 13:35 Blood Culture - Preliminary Blood 04/18/23 14:00 Blood Culture - Preliminary Blood 04/18/23 13:30 Gram Stain - Preliminary Foot - Right Wound Culture - Preliminary Pseudomonas aeruginosa Group D Enterococcus Lacy albicans
[2023-04-21 12:15] LABS: Glucose,Whole Blood 163 mg/dL (70-110)
--- NOTE | 2023-04-21 13:07 | P.PN ---
Subjective Progress Note Date: 04/21/23 The patient is a 57-year-old female who is admitted with acute heart failure exacerbation. Echocardiogram revealed ejection fraction of 40-45% with global hypokinesis and severe pulmonary hypertension. Patient has diuresed over the course of her admission. Beta satnam was maximized yesterday and blood pressure has been well controlled. She states she has been up ambulating around her room without significant increase in her shortness of breath. Mild dyspnea. No chest pain or chest pressure. No dizziness or lightheadedness. GENERAL: Well-appearing, well-nourished and in no acute distress. NECK: Supple without JVD or thyromegaly. LUNGS: Breath sounds diminished to auscultation bilaterally. Respiration equal and unlabored. No wheezes, rales or rhonchi. HEART: Regular rate and rhythm without murmurs, rubs or gallops. S1 and S2 heard. EXTREMITIES: Normal range of motion, mild- moderate bilateral lower extremity edema, worse on the left. Wound noted on right foot. Bruising on left calf TELEMETRY: Sinus rhythm overnight IMPRESSION: Congestive heart failure exacerbation, systolic and diastolic Cardiomyopathy, undetermined Pulmonary hypertension History of smoking and COPD Type 2 diabetes Chronic kidney disease PLAN: Outpatient right and left heart cath to evaluate pulmonary hypertension Patient may be discharged from the cardiac standpoint I am dictating on behalf of Dr Kemal Givens's history/physical and assessment/plan. Objective - Vital Signs Vital signs: Vital Signs Temp 98 F 04/21/23 08:00 Pulse 69 04/21/23 11:31 Resp 18 04/21/23 11:31 BP 130/73 04/21/23 08:00 Pulse Ox 97 04/21/23 08:00 FiO2 Intake & Output 04/20/23 04/21/23 04/21/23 18:59 06:59 18:59 Intake Total 540 540 180 Output Total 625 300 Balance -85 240 180 Intake: Oral 540 540 180 Output: Urine 625 300 Other: Voiding Method Toilet Toilet Bedside Commode Bedside Commode - Labs CBC & Chem 7: 04/19/23 10:01 04/19/23 10:01 Labs: Abnormal Lab Results - Last 24 Hours (Table) 04/20/23 04/20/23 04/21/23 Range/Units 16:27 19:50 05:51 POC Glucose (mg/dL) 223 H 194 H 125 H (70-110) mg/dL 04/21/23 Range/Units 12:14 POC Glucose (mg/dL) 163 H (70-110) mg/dL Microbiology - Last 24 Hours (Table) 04/18/23 13:35 Blood Culture - Preliminary Blood 04/18/23 14:00 Blood Culture - Preliminary Blood 04/18/23 13:30 Gram Stain - Preliminary Foot - Right Wound Culture - Preliminary Pseudomonas aeruginosa Group D Enterococcus Lacy albicans
[2023-04-21 16:10] LABS: Glucose,Whole Blood 97 mg/dL (70-110)
--- NOTE | 2023-04-21 18:04 | P.PN ---
Subjective Progress Note Date: 04/21/23 Principal diagnosis: Reason for follow-up his right heel diabetic foot infection and wound Patient is a 57-year-old female with a past medical history significant for diabetes mellitus hypertension hyperlipidemia patient did have a history of chronic nonhealing wound to the right heel area, patient was sent to the ER for nonhealing of the wound concerning for possible deep infection. On today's evaluation that is 04/21/2023 patient remains to be afebrile, the patient is breathing comfortably on room air the patient denies having any chest pain shortness of breath or cough patient denies having any nausea vomiting no abdominal pain no diarrhea and denies pain to the right foot plantar wound which is still draining. No new labs has been done today culture finalized with Enterococcus Pseudomonas aeruginosa and Lacy blood culture has been negative. Objective - Vital Signs Vital signs: Vital Signs Temp 98 F 04/21/23 08:00 Pulse 69 04/21/23 11:31 Resp 18 04/21/23 11:31 BP 130/73 04/21/23 08:00 Pulse Ox 97 04/21/23 08:00 FiO2 Intake & Output 04/20/23 04/21/23 04/21/23 18:59 06:59 18:59 Intake Total 540 540 180 Output Total 625 300 Balance -85 240 180 Intake: Oral 540 540 180 Output: Urine 625 300 Other: Voiding Method Toilet Toilet Bedside Commode Bedside Commode - Exam GENERAL DESCRIPTION: Middle-aged female lying in bed in no distress RESPIRATORY SYSTEM: Unlabored breathing , decreased breath sounds at bases HEART: S1 S2 regular rate and rhythm , ABDOMEN: Soft , no tenderness EXTREMITIES: Right heel wound is currently dressed - Labs CBC & Chem 7: 04/19/23 10:01 04/19/23 10:01 Labs: Abnormal Lab Results - Last 24 Hours (Table) 04/20/23 04/20/23 04/21/23 Range/Units 16:27 19:50 05:51 POC Glucose (mg/dL) 223 H 194 H 125 H (70-110) mg/dL Microbiology - Last 24 Hours (Table) 04/18/23 13:35 Blood Culture - Preliminary Blood 04/18/23 14:00 Blood Culture - Preliminary Blood 04/18/23 13:30 Gram Stain - Preliminary Foot - Right Wound Culture - Preliminary Pseudomonas aeruginosa Group D Enterococcus Lacy albicans Assessment and Plan (1) Cellulitis Current Visit: Yes Status: Acute Code(s): L03.90 - CELLULITIS, UNSPECIFIED SNOMED Code(s): 645188675 (2) Pressure ulcer of right heel, stage 3 Current Visit: Yes Status: Acute Code(s): L89.613 - PRESSURE ULCER OF RIGHT HEEL, STAGE 3 SNOMED Code(s): 91998080686618 (3) Type 2 diabetes mellitus with foot ulcer Current Visit: Yes Status: Acute Code(s): E11.621 - TYPE 2 DIABETES MELLITUS WITH FOOT ULCER; L97.509 - NON-PRESSURE CHRONIC ULCER OTH PRT UNSP FOOT W UNSP SEVERITY SNOMED Code(s): 354351891 Plan: 1patient presented to hospital with a chronic nonhealing wound to the right heel area which apparently has been there for more than a month failing outpatient oral local treatment, did not mention she received any antibiotic therapy we will need to cover for the polymicrobial ananya usually associated with diabetic foot infection 2cultures are currently growing gram-negative and group D Enterococcus with sensitivities pending x-ray did not show any bony destruction and the bonescan was negative for osteomyelitis 3Unasyn was discontinued this morning Zosyn was added on the basis of sensitivities and will see response and determine her discharge antibiotics in the next day or 2 Dictation was produced using [employer] dictation software. please excuse any grammatical, word or spelling errors.
[2023-04-21 19:59] LABS: Glucose,Whole Blood 225 mg/dL (70-110)
[2023-04-22 06:21] LABS: Glucose,Whole Blood 213 mg/dL (70-110)
[2023-04-22] MEDS: INSULIN DETEMIR (LEVEMIR) 100 UNIT/ML SYR SQ SCH (06:40)
[2023-04-22] MEDS: INSULIN ASPART (NovoLOG) 100 UNIT/ML VIAL SQ SCH ×4 (06:40→20:36)
[2023-04-22] MEDS: ONDANSETRON 4 MG/2 ML VIAL IVP PRN (06:40)
[2023-04-22] MEDS: SPIRONOLACTONE 25 MG TAB PO SCH (08:52)
[2023-04-22] MEDS: SERTRALINE 50 MG TAB PO SCH (08:52)
[2023-04-22] MEDS: MULTIVITAMINS, THERA 1 EACH TAB PO SCH (08:52)
[2023-04-22] MEDS: carvediloL 12.5 MG TAB PO SCH ×2 (08:52→17:08)
[2023-04-22] MEDS: ATORVASTATIN 40 MG TAB PO SCH (08:52)
[2023-04-22] MEDS: NICOTINE 14MG/24HR PATCH TRANSDERM SCH (08:53)
[2023-04-22] MEDS: ENOXAPARIN 30 MG/0.3 ML SYRINGE SQ SCH (08:53)
[2023-04-22] MEDS: GABAPENTIN 300 MG CAP PO SCH ×4 (08:53→20:31)
[2023-04-22] MEDS: TORSEMIDE 20 MG TAB PO SCH (08:53)
[2023-04-22] MEDS: PIPERACILLIN-TAZOBACTAM 3.375 GM in SODIUM CHLORIDE 0.9% 100 ML IVPB SCH ×3 (08:58→23:21)
[2023-04-22 09:17] LABS: Basophils # (A) 0.1 k/uL (0-0.2); Basophils % (A) 1 %; Eosinophils # (A) 0.2 k/uL (0-0.7); Eosinophils % (A) 4 %; HCT 31.9 % (34.0-46.0); HGB 9.5 gm/dL (11.4-16.0); Hypochromasia Marked; Lymphocytes # (A) 0.8 k/uL (1.0-4.8); Lymphocytes % (A) 13 %; MCH 25.8 pg (25.0-35.0); MCHC 29.7 g/dL (31.0-37.0); MCV 86.9 fL (80.0-100.0); Mean Platelet Volume 8.9; Monocytes # (A) 0.4 k/uL (0-1.0); Monocytes % (A) 6 %; Neutrophils # (A) 4.6 k/uL (1.3-7.7); Neutrophils % (A) 74 %; Platelet Count 280 k/uL (150-450); RBC 3.67 m/uL (3.80-5.40); RDW 14.7 % (11.5-15.5); WBC 6.2 k/uL (3.8-10.6)
[2023-04-22 09:30] LABS: African American GFR (CKD) 26 (>60 ml/min/1.73 sqM); Anion Gap 10 mmol/L; Blood Urea Nitrogen 45 mg/dL (7-17); Carbon Dioxide 21 mmol/L (22-30); Chloride 104 mmol/L (98-107); Glucose 187 mg/dL (74-99); Magnesium 2.3 mg/dL (1.6-2.3); Non-African American GFR(CKD) 23 (>60 ml/min/1.73 sqM); Potassium 5.3 mmol/L (3.5-5.1); Sodium 135 mmol/L (137-145)
--- NOTE | 2023-04-22 10:22 | P.PN ---
Subjective Progress Note Date: 04/22/23 No new complaints. Gen: awake, alert HEENT: normocephalic, atraumatic, good hearing acuity, moist mucous membranes Resp: good air exchange, breathing comfortably with no accessory muscle use CVS: good distal perfusion x 4, GI: soft, NTTP, ND : no SPT, no CVAT, solis catheter not present MSK: no pitting edema, no clubbing Neuro: non-focal, moving all extremities Psych: cooperative, euthymic mood Hospital Course: Patient is a 57-year-old female with a PMH of type II DM completed by peripheral neuropathy with chronic nonhealing right foot ulcers, hypertension, hyperlipidemia who was sent in to the emergency room from her PCPs clinic for concerns of fluid overload. Chest x-ray in the emergency room was consistent with fluid overload. EKG revealed sinus rhythm short IA interval a 71 bpm with no other ST/T-wave changes noted as reviewed by me. Laboratory evaluation revealed BUN of 42, creatinine 1.82 (no baseline available for comparison), proBNP 16,800, glucose 147, an unremarkable UA and a negative respiratory viral panel pending. Assessment: Acute CHF exacerbation Kidney injury, acute versus chronic Diabetic right foot ulcers, chronic Normocytic anemia, no baseline available for comparison Chronic conditions: Hypertension, hyperlipidemia Plan: Continue with Lasix 40 mg IV every 12 hourly Cardiology consulted, discontinued amlodipine, maximize carvedilol Cardiac monitoring Intake and output Daily weights Obtain echocardiogram Wound care and infectious disease consulted, and Unasyn discontinued, continue Zosyn Foot CX growing Pseudomonas, Enterococcus group D Obtain anemia workup Continue with home medications Monitor BMP DVT prophylaxis: Lovenox subcu The patient is admitted with an anticipated les than 2 midnight stay for evaluation of CHF CODE STATUS: Full Code Discussed with: Patient Anticipated discharge place: Home Objective - Vital Signs Vital signs: Vital Signs Temp 97.8 F 04/21/23 20:00 Pulse 70 04/22/23 04:00 Resp 18 04/22/23 04:00 BP 124/84 04/22/23 04:00 Pulse Ox 100 04/22/23 04:00 FiO2 Intake & Output 04/21/23 04/22/23 04/22/23 18:59 06:59 18:59 Intake Total 430 240 180 Output Total 200 Balance 430 40 180 Intake: Oral 430 240 180 Output: Urine 200 Other: Voiding Method Toilet Bedside Commode # Voids 1 # Bowel Movements 1 - Labs CBC & Chem 7: 04/22/23 08:04 04/22/23 08:04 Labs: Abnormal Lab Results - Last 24 Hours (Table) 04/21/23 04/21/23 04/22/23 Range/Units 12:14 19:57 06:19 RBC (3.80-5.40) m/uL Hgb (11.4-16.0) gm/dL Hct (34.0-46.0) % MCHC (31.0-37.0) g/dL Lymphocytes # (1.0-4.8) k/uL Sodium (137-145) mmol/L Potassium (3.5-5.1) mmol/L Carbon Dioxide (22-30) mmol/L BUN (7-17) mg/dL Creatinine (0.52-1.04) mg/dL Glucose (74-99) mg/dL POC Glucose (mg/dL) 163 H 225 H 213 H (70-110) mg/dL Calcium (8.4-10.2) mg/dL 04/22/23 04/22/23 Range/Units 08:04 08:04 RBC 3.67 L (3.80-5.40) m/uL Hgb 9.5 L (11.4-16.0) gm/dL Hct 31.9 L (34.0-46.0) % MCHC 29.7 L (31.0-37.0) g/dL Lymphocytes # 0.8 L (1.0-4.8) k/uL Sodium 135 L (137-145) mmol/L Potassium 5.3 H (3.5-5.1) mmol/L Carbon Dioxide 21 L (22-30) mmol/L BUN 45 H (7-17) mg/dL Creatinine 2.32 H (0.52-1.04) mg/dL Glucose 187 H (74-99) mg/dL POC Glucose (mg/dL) (70-110) mg/dL Calcium 8.0 L (8.4-10.2) mg/dL Microbiology - Last 24 Hours (Table) 04/18/23 13:35 Blood Culture - Preliminary Blood 04/18/23 14:00 Blood Culture - Preliminary Blood 04/18/23 13:30 Gram Stain - Final Foot - Right Wound Culture - Final Pseudomonas aeruginosa Enterococcus faecalis Lacy albicans Providencia rettgeri
[2023-04-22 11:50] LABS: Glucose,Whole Blood 247 mg/dL (70-110)
[2023-04-22 16:52] LABS: Glucose,Whole Blood 279 mg/dL (70-110)
[2023-04-22 20:31] LABS: Glucose,Whole Blood 220 mg/dL (70-110)
[2023-04-23 06:12] LABS: Glucose,Whole Blood 108 mg/dL (70-110)
[2023-04-23] MEDS: INSULIN ASPART (NovoLOG) 100 UNIT/ML VIAL SQ SCH ×4 (06:17→20:05)
[2023-04-23] MEDS: INSULIN DETEMIR (LEVEMIR) 100 UNIT/ML SYR SQ SCH (06:33)
--- NOTE | 2023-04-23 07:33 | P.PN ---
Subjective Progress Note Date: 04/22/23 Principal diagnosis: Reason for follow-up his right heel diabetic foot infection and wound Patient is a 57-year-old female with a past medical history significant for diabetes mellitus hypertension hyperlipidemia patient did have a history of chronic nonhealing wound to the right heel area, patient was sent to the ER for nonhealing of the wound concerning for possible deep infection. On today's evaluation that is 04/22/2023 the patient continues to be afebrile the patient is breathing comfortably on room air patient denies having any chest pain shortness of breath or cough no nausea vomiting no abdominal pain or any diarrhea denies pain to the right heel wound. Patient white count of 6.2 did have worsening of the creatinine of 2.32 local culture with Pseudomonas Enterococcus faecalis and providencia Objective - Vital Signs Vital signs: Vital Signs Temp 97.7 F 04/22/23 08:00 Pulse 76 04/22/23 08:00 Resp 18 04/22/23 08:00 BP 132/71 04/22/23 08:00 Pulse Ox 96 04/22/23 08:00 FiO2 Intake & Output 04/21/23 04/22/23 04/22/23 18:59 06:59 18:59 Intake Total 430 240 180 Output Total 200 Balance 430 40 180 Intake: Oral 430 240 180 Output: Urine 200 Other: Voiding Method Toilet Toilet Bedside Commode Bedside Commode # Voids 1 # Bowel Movements 1 - Exam GENERAL DESCRIPTION: Middle-aged female lying in bed in no distress RESPIRATORY SYSTEM: Unlabored breathing , decreased breath sounds at bases HEART: S1 S2 regular rate and rhythm , ABDOMEN: Soft , no tenderness EXTREMITIES: Right heel wound is currently dressed - Labs CBC & Chem 7: 04/22/23 08:04 04/22/23 08:04 Labs: Abnormal Lab Results - Last 24 Hours (Table) 04/21/23 04/22/23 04/22/23 Range/Units 19:57 06:19 08:04 RBC 3.67 L (3.80-5.40) m/uL Hgb 9.5 L (11.4-16.0) gm/dL Hct 31.9 L (34.0-46.0) % MCHC 29.7 L (31.0-37.0) g/dL Lymphocytes # 0.8 L (1.0-4.8) k/uL Sodium (137-145) mmol/L Potassium (3.5-5.1) mmol/L Carbon Dioxide (22-30) mmol/L BUN (7-17) mg/dL Creatinine (0.52-1.04) mg/dL Glucose (74-99) mg/dL POC Glucose (mg/dL) 225 H 213 H (70-110) mg/dL Calcium (8.4-10.2) mg/dL 04/22/23 04/22/23 Range/Units 08:04 11:49 RBC (3.80-5.40) m/uL Hgb (11.4-16.0) gm/dL Hct (34.0-46.0) % MCHC (31.0-37.0) g/dL Lymphocytes # (1.0-4.8) k/uL Sodium 135 L (137-145) mmol/L Potassium 5.3 H (3.5-5.1) mmol/L Carbon Dioxide 21 L (22-30) mmol/L BUN 45 H (7-17) mg/dL Creatinine 2.32 H (0.52-1.04) mg/dL Glucose 187 H (74-99) mg/dL POC Glucose (mg/dL) 247 H (70-110) mg/dL Calcium 8.0 L (8.4-10.2) mg/dL Microbiology - Last 24 Hours (Table) 04/18/23 13:35 Blood Culture - Preliminary Blood 04/18/23 14:00 Blood Culture - Preliminary Blood 04/18/23 13:30 Gram Stain - Final Foot - Right Wound Culture - Final Pseudomonas aeruginosa Enterococcus faecalis Lacy albicans Providencia rettgeri Assessment and Plan (1) Cellulitis Current Visit: Yes Status: Acute Code(s): L03.90 - CELLULITIS, UNSPECIFIED SNOMED Code(s): 306579109 (2) Pressure ulcer of right heel, stage 3 Current Visit: Yes Status: Acute Code(s): L89.613 - PRESSURE ULCER OF RIGHT HEEL, STAGE 3 SNOMED Code(s): 89711286866315 (3) Type 2 diabetes mellitus with foot ulcer Current Visit: Yes Status: Acute Code(s): E11.621 - TYPE 2 DIABETES MELLITUS WITH FOOT ULCER; L97.509 - NON-PRESSURE CHRONIC ULCER OTH PRT UNSP FOOT W UNSP SEVERITY SNOMED Code(s): 231048147 Plan: 1patient presented to hospital with a chronic nonhealing wound to the right heel area which apparently has been there for more than a month failing outpatient oral local treatment, did not mention she received any antibiotic therapy we will need to cover for the polymicrobial ananya usually associated with diabetic foot infection 2 x-ray did not show any bony destruction and the bonescan was negative for osteomyelitis,local culture currently growing Pseudomonas aeruginosa Enterococcus and procidentia. 3patient to continue with the Zosyn waiting for improvement in her kidney function discharge antibiotics will be oral Cipro and Augmentin local wound care has been switched over to do Aquacel silver dressing Dictation was produced using [employer] dictation software. please excuse any grammatical, word or spelling errors.
[2023-04-23 08:11] LABS: Basophils # (A) 0.1 k/uL (0-0.2); Basophils % (A) 1 %; Eosinophils # (A) 0.2 k/uL (0-0.7); Eosinophils % (A) 3 %; HGB 8.9 gm/dL (11.4-16.0); Hypochromasia Marked; Lymphocytes # (A) 0.9 k/uL (1.0-4.8); Lymphocytes % (A) 16 %; MCH 25.5 pg (25.0-35.0); MCHC 29.6 g/dL (31.0-37.0); MCV 86.3 fL (80.0-100.0); Monocytes # (A) 0.4 k/uL (0-1.0); Monocytes % (A) 7 %; Neutrophils # (A) 3.8 k/uL (1.3-7.7); Neutrophils % (A) 70 %; Platelet Count 276 k/uL (150-450); RBC 3.48 m/uL (3.80-5.40); RDW 14.6 % (11.5-15.5); WBC 5.4 k/uL (3.8-10.6)
[2023-04-23] MEDS: SPIRONOLACTONE 25 MG TAB PO SCH (08:51)
[2023-04-23] MEDS: carvediloL 12.5 MG TAB PO SCH ×2 (08:51→16:57)
[2023-04-23] MEDS: ENOXAPARIN 30 MG/0.3 ML SYRINGE SQ SCH (08:51)
[2023-04-23] MEDS: GABAPENTIN 300 MG CAP PO SCH ×4 (08:51→20:06)
[2023-04-23] MEDS: ATORVASTATIN 40 MG TAB PO SCH (08:51)
[2023-04-23] MEDS: SERTRALINE 50 MG TAB PO SCH (08:51)
[2023-04-23] MEDS: TORSEMIDE 20 MG TAB PO SCH (08:51)
[2023-04-23] MEDS: MULTIVITAMINS, THERA 1 EACH TAB PO SCH (08:51)
[2023-04-23] MEDS: PIPERACILLIN-TAZOBACTAM 3.375 GM in SODIUM CHLORIDE 0.9% 100 ML IVPB SCH ×3 (08:52→23:32)
[2023-04-23] MEDS: NICOTINE 14MG/24HR PATCH TRANSDERM SCH (08:55)
[2023-04-23 10:46] LABS: African American GFR (CKD) 23 (>60 ml/min/1.73 sqM); Anion Gap 10 mmol/L; Blood Urea Nitrogen 48 mg/dL (7-17); Carbon Dioxide 20 mmol/L (22-30); Chloride 106 mmol/L (98-107); Glucose 105 mg/dL (74-99); Magnesium 2.4 mg/dL (1.6-2.3); Non-African American GFR(CKD) 20 (>60 ml/min/1.73 sqM); Potassium 5.2 mmol/L (3.5-5.1); Sodium 136 mmol/L (137-145)
[2023-04-23 11:32] LABS: Glucose,Whole Blood 135 mg/dL (70-110)
[2023-04-23] MEDS ORDERED: SODIUM BICARB 8.4% 50 ML SYR (1 MEQ/ML) IV STA (14:16)
[2023-04-23] MEDS ORDERED: CALCIUM GLUCONATE IN NACL 2 GM in SALINE 1 100ML.BAG IVPB ONE (14:16)
--- NOTE | 2023-04-23 14:41 | P.PN ---
Subjective Progress Note Date: 04/23/23 Hospital course: Patient is a very pleasant 57-year-old with a past medical history of type II DM completed by peripheral neuropathy with chronic nonhealing right foot ulcers, hypertension, and hyperlipidemia. She presented to the emergency department on 04/17/23 was directed by PCP for concerns of fluid overload. Chest x-ray in the emergency room was consistent with fluid overload. EKG revealed sinus rhythm short [place] interval a [address] bpm with no other ST/T-wave changes noted as reviewed by me. Laboratory evaluation revealed BUN of 42, creatinine 1.82 (no baseline available for comparison), proBNP 16,800, glucose 147, an unremarkable UA and a negative respiratory viral panel negative. Pt was seen by ID regarding her RLE heel ulcer, and wound cultures returned polymicrobial. She was initially treated with unasyn, then switched to zosyn when cultures returned + for pseudom onas, enterococcus faecalis, artemio, and providencia rettgeri. Bone scan and Foot XR negative for osteomyelitis. Echo showed EF 40-45%, with severe pHTN. Renal function elevating, IV Lasix was discontinued and patient switched to torsemide by cardiology. Renal function continues to elevate with BUN of 48, creatinine 2.52, and GFR of 20. Patient also with hyperkalemia this morning with potassium of 5.2.. Orders placed for consult to nephrology. Aldactone discontinued. Patient given a single dose of calcium gluconate 2 g IVPB and sodium bicarb 1 amp. Once renal function is stable, plan is for discharge home on Augmentin and ciprofloxacin for treatment of infected ulcer. Physical exam: Vital signs reviewed and stable. General: Nontoxic, no distress and appears stated age. Derm: Skin warm and dry, normal coloration for ethnicity. Head: Atraumatic, normocephalic and symmetric. Eyes: EOMs intact, no lid lag, and anicteric sclera Mouth: no lip lesions, mucus membranes moist Cardiovascular: regular rate and rhythm with normal S1S2, no murmur, positive posterior tibial pulses bilaterally, and cap refill < 2 seconds. Lungs: Respirations even, regular, and unlabored on room air. Lungs CTA bilaterally, no rhonchi, no rales, no wheezing, and no accessory muscle usage. Abdominal: soft, nontender to palpation, no guarding, no appreciable organomegaly Ext: ROM intact. No gross muscle atrophy, no edema, no contractures Neuro: Speech clear, face symmetrical and CN II-XII grossly intact with no noted focal neuro deficits Psych: Alert and oriented to person, place, time, and situation. Appropriate and pleasant affect. Assessment and Plan of Care: Acute kidney injury on chronic kidney disease suspect stage IIIB Hyperkalemia Acute CHF exacerbation Diabetic right foot ulcers with superimposed infection, chronic Iron Deficiency Anemia superimposed on Anemia of Chronic Disease Chronic conditions: Hypertension, hyperlipidemia -Lasix was switched to torsemide -Cardiology consulted, discontinued amlodipine and maximized carvedilol -Nephrology consulted for worsening renal function. -Discontinue Aldactone secondary to hyperkalemia. Patient given calcium gluconate 2 g IVPB and sodium bicarb 1 amp for treatment of hyperkalemia. -Wound care and infectious disease following. Unasyn was discontinued, continue Zosyn 3.375 g every 8 hours -Wound culture right foot was reviewed resulting positive for pseudomonas aeruginosa, enterococcus faecalis, artemio albicans, Providencia rettgeri. -Obtain anemia workup = b12, folate appropriate, % transferrin low, total transf adriana low c/w GAGE superimposed on AoCD -would recommend holding off of starting oral iron until after infection treated - defer to outpatient Data reviewed: -Wound culture right foot was reviewed resulting positive for pseudomonas aeruginosa, enterococcus faecalis, artemio albicans, Providencia rettgeri. -Labs completed and reviewed. CBC showing stable normocytic anemia with hemoglobin of 8.9. BMP revealing hyperkalemia with potassium of 5.2, hypocarbia with bicarb of 20, and further elevating renal function with BUN of 48, creatinine 2.52, and GFR of 20. -Vital signs reviewed. Blood pressure 147/87, heart rate 74, respiratory rate 16, temp 98.1F, and SpO2 of 96% on room air. DVT prophylaxis: Lovenox CODE STATUS: Full Code Anticipated discharge place: Home Anticipated discharge date: Once renal function is stable, plan is for discharge home on oral antibiotics with Augmentin and ciprofloxacin for treatment of infected ulcer. Patient was seen independently by Nurse Pracitioner. This document was prepared using [employer] dictation software. Please allow for errors in insurance account specialist, while rare they do occur. Objective - Vital Signs Vital signs: Vital Signs Temp 98.1 F 04/23/23 04:18 Pulse 76 04/23/23 04:18 Resp 18 04/23/23 04:18 BP 134/67 04/23/23 04:18 Pulse Ox 96 04/23/23 04:18 FiO2 Intake & Output 04/22/23 04/23/23 04/23/23 18:59 06:59 18:59 Intake Total 360 0 Balance 360 0 Intake: Oral 360 0 Other: Voiding Method Toilet Toilet Bedside Commode Bedside Commode # Voids 0 - Labs CBC & Chem 7: 04/23/23 07:15 04/23/23 07:15 Labs: Abnormal Lab Results - Last 24 Hours (Table) 04/22/23 04/22/23 04/22/23 Range/Units 08:04 08:04 11:49 RBC 3.67 L (3.80-5.40) m/uL Hgb 9.5 L (11.4-16.0) gm/dL Hct 31.9 L (34.0-46.0) % MCHC 29.7 L (31.0-37.0) g/dL Lymphocytes # 0.8 L (1.0-4.8) k/uL Sodium 135 L (137-145) mmol/L Potassium 5.3 H (3.5-5.1) mmol/L Carbon Dioxide 21 L (22-30) mmol/L BUN 45 H (7-17) mg/dL Creatinine 2.32 H (0.52-1.04) mg/dL Glucose 187 H (74-99) mg/dL POC Glucose (mg/dL) 247 H (70-110) mg/dL Calcium 8.0 L (8.4-10.2) mg/dL 04/22/23 04/22/23 04/23/23 Range/Units 16:51 20:30 07:15 RBC 3.48 L (3.80-5.40) m/uL Hgb 8.9 L (11.4-16.0) gm/dL Hct 30.0 L (34.0-46.0) % MCHC 29.6 L (31.0-37.0) g/dL Lymphocytes # 0.9 L (1.0-4.8) k/uL Sodium (137-145) mmol/L Potassium (3.5-5.1) mmol/L Carbon Dioxide (22-30) mmol/L BUN (7-17) mg/dL Creatinine (0.52-1.04) mg/dL Glucose (74-99) mg/dL POC Glucose (mg/dL) 279 H 220 H (70-110) mg/dL Calcium (8.4-10.2) mg/dL Microbiology - Last 24 Hours (Table) 04/18/23 13:30 Anaerobic Culture - Final Foot - Right
[2023-04-23 16:23] LABS: Glucose,Whole Blood 128 mg/dL (70-110)
--- NOTE | 2023-04-23 16:33 | P.PN ---
Subjective Progress Note Date: 04/23/23 Principal diagnosis: Reason for follow-up his right heel diabetic foot infection and wound Patient is a 57-year-old female with a past medical history significant for diabetes mellitus hypertension hyperlipidemia patient did have a history of chronic nonhealing wound to the right heel area, patient was sent to the ER for nonhealing of the wound concerning for possible deep infection. On today's evaluation that is 04/23/2023 the patient remains to be afebrile, the patient is breathing comfortably on room air repeat denies having any chest pain shortness of breath or cough no nausea no vomiting no abdominal pain denies pain to the right heel wound area. Patient white count of 5.4, creatinine is 2.52 Objective - Vital Signs Vital signs: Vital Signs Temp 98.1 F 04/23/23 08:00 Pulse 74 04/23/23 08:00 Resp 16 04/23/23 08:00 BP 147/87 04/23/23 08:00 Pulse Ox 96 04/23/23 08:00 FiO2 Intake & Output 04/22/23 04/23/23 04/23/23 18:59 06:59 18:59 Intake Total 360 0 118 Balance 360 0 118 Intake: Oral 360 0 118 Other: Voiding Method Toilet Toilet Toilet Bedside Commode Bedside Commode Bedside Commode # Voids 0 - Exam GENERAL DESCRIPTION: Middle-aged female lying in bed in no distress RESPIRATORY SYSTEM: Unlabored breathing , decreased breath sounds at bases HEART: S1 S2 regular rate and rhythm , ABDOMEN: Soft , no tenderness EXTREMITIES: Right heel wound is currently dressed - Labs CBC & Chem 7: 04/23/23 07:15 04/23/23 07:15 Labs: Abnormal Lab Results - Last 24 Hours (Table) 04/22/23 04/22/23 04/22/23 Range/Units 11:49 16:51 20:30 RBC (3.80-5.40) m/uL Hgb (11.4-16.0) gm/dL Hct (34.0-46.0) % MCHC (31.0-37.0) g/dL Lymphocytes # (1.0-4.8) k/uL POC Glucose (mg/dL) 247 H 279 H 220 H (70-110) mg/dL 04/23/23 Range/Units 07:15 RBC 3.48 L (3.80-5.40) m/uL Hgb 8.9 L (11.4-16.0) gm/dL Hct 30.0 L (34.0-46.0) % MCHC 29.6 L (31.0-37.0) g/dL Lymphocytes # 0.9 L (1.0-4.8) k/uL POC Glucose (mg/dL) (70-110) mg/dL Microbiology - Last 24 Hours (Table) 04/18/23 13:30 Anaerobic Culture - Final Foot - Right Assessment and Plan (1) Cellulitis Current Visit: Yes Status: Acute Code(s): L03.90 - CELLULITIS, UNSPECIFIED SNOMED Code(s): 559149961 (2) Pressure ulcer of right heel, stage 3 Current Visit: Yes Status: Acute Code(s): L89.613 - PRESSURE ULCER OF RIGHT HEEL, STAGE 3 SNOMED Code(s): 10713720112973 (3) Type 2 diabetes mellitus with foot ulcer Current Visit: Yes Status: Acute Code(s): E11.621 - TYPE 2 DIABETES MELLITUS WITH FOOT ULCER; L97.509 - NON-PRESSURE CHRONIC ULCER OTH PRT UNSP FOOT W UNSP SEVERITY SNOMED Code(s): 879542995 Plan: 1patient presented to hospital with a chronic nonhealing wound to the right heel area which apparently has been there for more than a month failing outpatient oral local treatment, did not mention she received any antibiotic therapy we will need to cover for the polymicrobial ananya usually associated with diabetic foot infection 2 x-ray did not show any bony destruction and the bonescan was negative for osteomyelitis,local culture currently growing Pseudomonas aeruginosa Enterococcus and procidentia. 3patient noticed to have slight worsening of the kidney function holding her discharge for now continue with the Zosyn plan is for oral Augmentin and Cipro on discharge and local wound care with dry Aquacel silver dressing question concern answered Dictation was produced using [employer] dictation software. please excuse any gramm atical, word or spelling errors. Time with Patient: Less than 30
[2023-04-23 20:06] LABS: Glucose,Whole Blood 141 mg/dL (70-110)
[2023-04-24 05:50] LABS: Glucose,Whole Blood 158 mg/dL (70-110)
[2023-04-24] MEDS: INSULIN DETEMIR (LEVEMIR) 100 UNIT/ML SYR SQ SCH (06:24)
[2023-04-24] MEDS: ONDANSETRON 4 MG/2 ML VIAL IVP PRN (06:24)
[2023-04-24] MEDS: INSULIN ASPART (NovoLOG) 100 UNIT/ML VIAL SQ SCH ×4 (06:24→21:01)
[2023-04-24] MEDS: NICOTINE 14MG/24HR PATCH TRANSDERM SCH (10:01)
[2023-04-24] MEDS: TORSEMIDE 20 MG TAB PO SCH (10:10)
[2023-04-24] MEDS: ENOXAPARIN 30 MG/0.3 ML SYRINGE SQ SCH (10:10)
[2023-04-24] MEDS: SERTRALINE 50 MG TAB PO SCH (10:10)
[2023-04-24] MEDS: GABAPENTIN 300 MG CAP PO SCH ×4 (10:10→20:30)
[2023-04-24] MEDS: carvediloL 12.5 MG TAB PO SCH ×2 (10:10→16:52)
[2023-04-24] MEDS: MULTIVITAMINS, THERA 1 EACH TAB PO SCH (10:10)
[2023-04-24] MEDS: ATORVASTATIN 40 MG TAB PO SCH (10:10)
[2023-04-24] MEDS: PIPERACILLIN-TAZOBACTAM 3.375 GM in SODIUM CHLORIDE 0.9% 100 ML IVPB SCH ×3 (10:11→23:38)
--- NOTE | 2023-04-24 10:35 | US ---
EXAMINATION TYPE: US kidneys/renal and bladder DATE OF EXAM: 04/24/2023 COMPARISON: NONE CLINICAL INDICATION: Female, 57 years old with history of adriana; decreased renal function, no symptoms per patient EXAM MEASUREMENTS: Right Kidney: 10.6 x 4.7 x 4.8 cm Left Kidney: 11.7 x 4.4 x 5.3 cm Right Kidney: No hydronephrosis or masses seen Left Kidney: No hydronephrosis or masses seen Bladder: wnl Bilateral Jets seen: left There is no evidence for hydronephrosis at this point in time. No nephrolithiasis is seen. No stanley s are identified. The urinary bladder is anechoic. Bilateral ureteral jets are seen. IMPRESSION: No evidence for acute process. Cortical medullary differentiation is maintained.
--- NOTE | 2023-04-24 10:54 | P.NPCON ---
History of Present Illness - Reason for Consult acute renal failure - History of Present Illness patient is a 57-year-old female with history of type 2 diabetes and hypertension. Patient was admitted to the hospital with complaints of increased shortness of breath, increased lower extremity swelling and more than 20 pounds of weight gain. Patient also has a nonhealing right heel ulcer. Patient has been diuresed. Ejection fraction 40-45% on echocardiogram on 04/18/2023 with severe pulmonary hypertension. Serum creatinine was 1.8 on admission and increased to 2.5 today. No previous labs available for comparison. Blood pressure has not been low. Patient has been voiding. Currently maintained on torsemide. Weight is down by about 5 kg since admission. Ultrasound shows no evidence of hydronephrosis. 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" History of Any Multi-Drug Resistant Organisms: None Reported Past Surgical History: Orthopedic Surgery, Tonsillectomy Additional Past Surgical History / Comment(s): "plate in left leg to straighten leg as a child" - plate removed, right total hip replacement due to a fracture from a fall Past Anesthesia/Blood Transfusion Reactions: No Reported Reaction Past Psychological History: No Psychological Hx Reported Smoking Status: Vaper Past Alcohol Use History: None Reported Past Drug Use History: None Reported Medications and Allergies Home Medications Medication Instructions Recorded Confirmed Type Atorvastatin [Lipitor] 40 mg PO DAILY 04/17/23 04/17/23 History Dapagliflozin Propanediol [Farxiga] 5 mg PO DAILY 04/17/23 04/17/23 History Diclofenac Sodium [Voltaren] 75 mg PO BID 04/17/23 04/17/23 History Ezetimibe [Zetia] 10 mg PO DAILY 04/17/23 04/17/23 History Gabapentin 600 mg PO QID 04/17/23 04/17/23 History Multivitamins, Thera [Multivitamin 1 tab PO DAILY 04/17/23 04/17/23 History (formulary)] Sertraline [Zoloft] 50 mg PO DIRECTED 04/17/23 04/17/23 History Spironolactone [Aldactone] 25 mg PO DAILY 04/17/23 04/17/23 History Torsemide [Demadex] 20 mg PO DAILY 04/17/23 04/17/23 History carvediloL 12.5 mg PO BID@0900,1700 04/17/23 04/17/23 History lisinopriL [Zestril] 10 mg PO DAILY 04/17/23 04/17/23 History rOPINIRole HCL [Requip] 1 mg PO HS 04/17/23 04/17/23 History Allergies Allergy/AdvReac Type Severity Reaction Status Date / Time No Known Allergies Allergy Verified 04/17/23 19:32 Physical Exam Vitals: Vital Signs Temp Pulse Resp BP Pulse Ox 04/24/23 10:00 98.0 F 65 15 171/85 97 04/24/23 04:00 77 17 151/75 96 04/23/23 23:35 79 18 136/84 97 04/23/23 20:08 98.1 F 77 18 140/86 96 04/23/23 16:00 97.5 F L 66 18 144/84 96 04/23/23 14:00 70 18 04/23/23 12:00 97.5 F L 70 18 144/80 94 L Intake and Output 04/23/23 04/24/23 04/24/23 22:59 06:59 14:59 Intake Total 118 118 Output Total 300 600 Balance -182 -482 Intake: Oral 118 118 Output: Urine 300 600 Other: Voiding Method Toilet Toilet Bedside Commode Bedside Commode # Voids 2 Patient is comfortable awake alert oriented 3. 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 Acute kidney injury, ATN and component of cardiorenal syndrome. Status post diuresis, currently maintained on oral diuretics. No evidence of obstruction on ultrasound. UA appears benign with 1+ protein no blood or cells. No hypotension noted. No nephrotoxic agents identified. 2. Rule out underlying chronic kidney disease. Previous labs not available for comparison 3. Volume overload currently improved 4. CHF systolic acute on top of chronic ejection fraction 40-45% with severe pu lmonary hypertension. 5. Right heel ulcer/cellulitis, no evidence of osteomyelitis. Maintained on antibiotics. 6. Anemia of chronic disease with severe iron deficiency Plan: Add IV iron Check labs today Continue torsemide Add Aranesp after 1-2 days of IV iron Patient will need outpatient follow-up for CK D next Thank you for the consultation. We will continue to follow the patient with you during her hospitalization.
[2023-04-24 11:15] LABS: HCT 29.5 % (34.0-46.0); HGB 8.8 gm/dL (11.4-16.0); Hypochromasia Marked; MCH 26.2 pg (25.0-35.0); MCHC 29.9 g/dL (31.0-37.0); MCV 87.4 fL (80.0-100.0); Mean Platelet Volume 9.4; Platelet Count 239 k/uL (150-450); RBC 3.37 m/uL (3.80-5.40); RDW 14.7 % (11.5-15.5); WBC 6.4 k/uL (3.8-10.6)
[2023-04-24 11:41] LABS: Glucose,Whole Blood 236 mg/dL (70-110)
[2023-04-24 11:44] LABS: African American GFR (CKD) 24 (>60 ml/min/1.73 sqM); Anion Gap 11 mmol/L; Blood Urea Nitrogen 51 mg/dL (7-17); Calcium 8.3 mg/dL (8.4-10.2); Carbon Dioxide 20 mmol/L (22-30); Chloride 105 mmol/L (98-107); Glucose 232 mg/dL (74-99); Magnesium 2.3 mg/dL (1.6-2.3); Non-African American GFR(CKD) 21 (>60 ml/min/1.73 sqM); Potassium 5.1 mmol/L (3.5-5.1); Sodium 136 mmol/L (137-145)
[2023-04-24] MEDS: SODIUM FERRIC GLUCONAT-SUCROSE 125 MG in SODIUM CHLORIDE 0.9% 100 ML IVPB SCH (14:52)
--- NOTE | 2023-04-24 15:12 | P.PN ---
Subjective Progress Note Date: 04/24/23 Hospital course: Patient is a very pleasant 57-year-old with a past medical history of type II DM completed by peripheral neuropathy with chronic nonhealing right foot ulcers, hypertension, and hyperlipidemia. She presented to the emergency department on 04/17/23 was directed by PCP for concerns of fluid overload. Chest x-ray in the emergency room was consistent with fluid overload. EKG revealed sinus rhythm short [place] interval a 71 bpm with no other ST/T-wave changes noted as reviewed by me. Laboratory evaluation revealed BUN of 42, creatinine 1.82 (no baseline available for comparison), proBNP 16,800, glucose 147, an unremarkable UA and a negative respiratory viral panel negative. Pt was seen by ID regarding her RLE heel ulcer, and wound cultures returned polymicrobial. She was initially treated with unasyn, then switched to zosyn when cultures returned + for pseudomonas, enterococcus faecalis, artemio, and providencia rettgeri. Bone scan and Foot XR negative for osteomyelitis. Echo showed EF 40-45%, with severe pHTN. Renal function elevating, IV Lasix was discontinued and patient switched to torsemide by cardiology. Renal function continues to elevate with BUN of 48, creatinine 2.52, and GFR of 20. Patient also with hyperkalemia this morning with potassium of 5.2.. Orders placed for consult to nephrology. Aldactone discontinued. Patient given a single dose of calcium gluconate 2 g IVPB and sodium bicarb 1 amp. Hyperkalemia resolved. Patient was evaluated by wire dropper, she underwent ultrasound of kidneys and bladder which showed no evidence for acute process and ruled out hydronephrosis. Nephrology stating acute kidney injury possibly component of cardiorenal syndrome status post diarrhea but also unable to rule out underlying chronic kidney disease/previous labs are not available for comparison. Rubber Mill Operator recommended 1-2 days of IV iron and starting patient on Aranesp with outpatient follow-up for CKD. Once cleared by nephrology plan is is for discharge home on Augmentin and ciprofloxacin for treatment of infected ulcer. Physical exam: Seen and fully evaluated at the bedside this morning. Patient does report she is feeling a bit better today. She was sitting up in the chair and currently denies having any complaints or needs at this time. Vital signs reviewed and stable. General: Nontoxic, no distress and appears stated age. Derm: Skin warm and dry, normal coloration for ethnicity. Head: Atraumatic, normocephalic and symmetric. Eyes: EOMs intact, no lid lag, and anicteric sclera Mouth: no lip lesions, mucus membranes moist Cardiovascular: regular rate and rhythm with normal S1S2, no murmur, positive posterior tibial pulses bilaterally, and cap refill < 2 seconds. Lungs: Respirations even, regular, and unlabored on room air. Lungs CTA bilaterally, no rhonchi, no rales, no wheezing, and no accessory muscle usage. Abdominal: soft, nontender to palpation, no guarding, no appreciable organomegaly Ext: ROM intact. No gross muscle atrophy, no edema, no contractures Neuro: Speech clear, face symmetrical and CN II-XII grossly intact with no noted focal neuro deficits Psych: Alert and oriented to person, place, time, and situation. Appropriate and pleasant affect. Assessment and Plan of Care: Acute kidney injury on suspected underlying chronic kidney disease Hyperkalemia, resolved Acute CHF exacerbation Diabetic right foot ulcers with superimposed infection, chronic Iron Deficiency Anemia superimposed on Anemia of Chronic Disease Chronic conditions: Hypertension, hyperlipidemia -Cardiology evaluated made medication changes by discontinuation of amlodipine and maximizing carvedilol. Cardiology clearing patient from cardiac perspective recommending patient follow-up outpatient for scheduling of right and left heart cath to further evaluate pulmonary hypertension. -Nephrology evaluated and recommending three-day course of Ferric Sodium followed by starting patient on Aranesp with recommendations for outpatient follow-up for further evaluation of CKD. -Discontinued Aldactone and lisinopril secondary to hyperkalemia. -Patient to continue with atorvastatin 40 mg daily, carvedilol 25 mg twice daily, Farxiga 5 mg daily, Zetia 10 mg daily, and torsemide 40 mg daily -Wound care and infectious disease following. Patient to continue Zosyn 3.375 g every 8 hours as recommended by infectious disease physician -Wound culture right foot was reviewed resulting positive for pseudomonas aeruginosa, enterococcus faecalis, artemio albicans, Providencia rettgeri. Data reviewed: -Wound culture right foot positive for pseudomonas aeruginosa, enterococcus faecalis, artemio albicans, Providencia rettgeri. -Labs completed and reviewed. CBC showing stable normocytic anemia with hemoglobin of 8.8. BMP revealing potassium 5.1 and persistently elevated renal function with BUN of 51, creatinine 2.48, GFR of 21. -Vital signs reviewed. Blood pressure 151/75, heart rate 77, respiratory rate 17, SpO2 of 96% on room air. DVT prophylaxis: Lovenox CODE STATUS: Full Code Anticipated discharge place: Home Anticipated discharge date: Once renal function is stable, plan is for discharge home on oral antibiotics with Augmentin and ciprofloxacin for treatment of infected ulcer. Patient was seen independently by Nurse Pracitioner. This document was prepared using [employer] dictation software. Please allow for errors in plan manager, while rare they do occur. Objective - Vital Signs Vital signs: Vital Signs Temp 98.1 F 04/23/23 20:08 Pulse 77 04/24/23 04:00 Resp 17 04/24/23 04:00 BP 151/75 04/24/23 04:00 Pulse Ox 96 04/24/23 04:00 FiO2 Intake & Output 04/23/23 04/24/23 04/24/23 18:59 06:59 18:59 Intake Total 354 Output Total 300 Balance 54 Weight 69.9 kg Intake: Oral 354 Output: Urine 300 Other: Voiding Method Toilet Toilet Bedside Commode Bedside Commode # Voids 2 - Labs CBC & Chem 7: 04/24/23 10:53 04/24/23 10:53 Labs: Abnormal Lab Results - Last 24 Hours (Table) 04/23/23 04/23/23 04/23/23 Range/Units 07:15 07:15 11:31 RBC 3.48 L (3.80-5.40) m/uL Hgb 8.9 L (11.4-16.0) gm/dL Hct 30.0 L (34.0-46.0) % MCHC 29.6 L (31.0-37.0) g/dL Lymphocytes # 0.9 L (1.0-4.8) k/uL Sodium 136 L (137-145) mmol/L Potassium 5.2 H (3.5-5.1) mmol/L Carbon Dioxide 20 L (22-30) mmol/L BUN 48 H (7-17) mg/dL Creatinine 2.52 H (0.52-1.04) mg/dL Glucose 105 H (74-99) mg/dL POC Glucose (mg/dL) 135 H (70-110) mg/dL Calcium 8.0 L (8.4-10.2) mg/dL Magnesium 2.4 H (1.6-2.3) mg/dL 04/23/23 04/23/23 04/24/23 Range/Units 16:21 20:04 05:47 RBC (3.80-5.40) m/uL Hgb (11.4-16.0) gm/dL Hct (34.0-46.0) % MCHC (31.0-37.0) g/dL Lymphocytes # (1.0-4.8) k/uL Sodium (137-145) mmol/L Potassium (3.5-5.1) mmol/L Carbon Dioxide (22-30) mmol/L BUN (7-17) mg/dL Creatinine (0.52-1.04) mg/dL Glucose (74-99) mg/dL POC Glucose (mg/dL) 128 H 141 H 158 H (70-110) mg/dL Calcium (8.4-10.2) mg/dL Magnesium (1.6-2.3) mg/dL Microbiology - Last 24 Hours (Table) 04/18/23 13:35 Blood Culture - Final Blood 04/18/23 14:00 Blood Culture - Final Blood
[2023-04-24 16:25] LABS: Glucose,Whole Blood 146 mg/dL (70-110)
[2023-04-24 20:41] LABS: Glucose,Whole Blood 184 mg/dL (70-110)
[2023-04-25 06:14] LABS: Glucose,Whole Blood 184 mg/dL (70-110)
[2023-04-25] MEDS: INSULIN DETEMIR (LEVEMIR) 100 UNIT/ML SYR SQ SCH (06:32)
[2023-04-25] MEDS: INSULIN ASPART (NovoLOG) 100 UNIT/ML VIAL SQ SCH ×4 (06:33→21:02)
[2023-04-25 07:46] LABS: HCT 28.9 % (34.0-46.0); Hypochromasia Marked; MCH 26.6 pg (25.0-35.0); MCHC 31.1 g/dL (31.0-37.0); MCV 85.5 fL (80.0-100.0); Mean Platelet Volume 9.1; Platelet Count 258 k/uL (150-450); RBC 3.39 m/uL (3.80-5.40); RDW 14.8 % (11.5-15.5); WBC 6.4 k/uL (3.8-10.6)
[2023-04-25] MEDS: EZETIMIBE 10 MG TAB PO SCH (09:40)
[2023-04-25] MEDS: SERTRALINE 50 MG TAB PO SCH (09:40)
[2023-04-25] MEDS: NICOTINE 14MG/24HR PATCH TRANSDERM SCH (09:40)
[2023-04-25] MEDS: ENOXAPARIN 30 MG/0.3 ML SYRINGE SQ SCH (09:40)
[2023-04-25] MEDS: MULTIVITAMINS, THERA 1 EACH TAB PO SCH (09:40)
[2023-04-25] MEDS: ATORVASTATIN 40 MG TAB PO SCH (09:40)
[2023-04-25] MEDS: GABAPENTIN 300 MG CAP PO SCH ×4 (09:40→21:02)
[2023-04-25] MEDS: DAPAGLIFLOZIN PROPANEDIOL 5 MG TABLET PO SCH (09:40)
[2023-04-25] MEDS: carvediloL 12.5 MG TAB PO SCH ×2 (09:40→16:36)
[2023-04-25] MEDS: PIPERACILLIN-TAZOBACTAM 3.375 GM in SODIUM CHLORIDE 0.9% 100 ML IVPB SCH ×3 (10:19→23:24)
[2023-04-25 11:29] LABS: Glucose,Whole Blood 223 mg/dL (70-110)
[2023-04-25] MEDS: DARBEPOETIN ALFA 40 MCG/0.4 ML SYRINGE SQ SCH (11:43)
--- NOTE | 2023-04-25 12:33 | P.PN ---
Subjective Patient is seen for follow-up for acute kidney injury. Patient was admitted with shortness of breath and increased leg swelling with significant volume overload. Patient has been diuresed. Currently maintained on torsemide. 24 hour urine output not charted accurately. Serum creatinine at 2.4 from yesterday. Labs are pending from today. Patient is complaining of increased leg swelling and states that she is not able to get out of bed easily due to severe edema. No significant shortness of breath. Weight is down by about 4.8 kg since admission. Objective - Vital Signs Vital signs: Vital Signs Temp 97.6 F 04/25/23 09:22 Pulse 66 04/25/23 11:42 Resp 16 04/25/23 11:42 BP 160/79 04/25/23 11:42 Pulse Ox 97 04/25/23 11:42 FiO2 Intake & Output 04/24/23 04/25/23 04/25/23 18:59 06:59 18:59 Intake Total 708 797 480 Output Total 600 200 Balance 108 597 480 Weight 70.2 kg Intake: Oral 708 797 480 Output: Urine 600 200 Other: Voiding Method Toilet Toilet Bedside Commode Bedside Commode # Voids 1 - Exam Patient is comfortable awake alert oriented 3. No acute distress Examination of the heart S1 and S2 Examination of the lungs bilateral breath sounds are heard Abdomen is soft nontender Examination of lower extremities shows edema 2+ bilaterally, right foot is dressed PLASTICS ENGINEER exam grossly intact - Labs CBC & Chem 7: 04/25/23 06:53 04/24/23 10:53 Labs: Abnormal Lab Results - Last 24 Hours (Table) 04/24/23 04/24/23 04/25/23 Range/Units 16:24 20:38 06:12 RBC (3.80-5.40) m/uL Hgb (11.4-16.0) gm/dL Hct (34.0-46.0) % POC Glucose (mg/dL) 146 H 184 H 184 H (70-110) mg/dL 04/25/23 04/25/23 Range/Units 06:53 11:27 RBC 3.39 L (3.80-5.40) m/uL Hgb 9.0 L (11.4-16.0) gm/dL Hct 28.9 L (34.0-46.0) % POC Glucose (mg/dL) 223 H (70-110) mg/dL Assessment and Plan Assessment: 1. Acute kidney injury, ATN and component of cardiorenal syndrome. Status post diuresis, currently maintained on oral diuretics. No evidence of obstruction on ultrasound. UA appears benign with 1+ protein no blood or cells. No hypotension noted. No nephrotoxic agents identified. 2. Rule out underlying chronic kidney disease. Previous labs not available for comparison 3. Volume overload currently improved 4. CHF systolic acute on top of chronic ejection fraction 40-45% with severe pu lmonary hypertension. 5. Right heel ulcer/cellulitis, no evidence of osteomyelitis. Maintained on antibiotics. 6. Anemia of chronic disease with severe iron deficiency Plan: Continue IV iron Change to IV diuretics for 24 hours Check labs today Add Aranesp after 1-2 days of IV iron Patient will need outpatient follow-up for CK D
[2023-04-25] MEDS: TORSEMIDE 20 MG TAB PO SCH (13:11)
[2023-04-25 13:16] LABS: ALT 34 U/L (4-34); AST 23 U/L (14-36); African American GFR (CKD) 25 (>60 ml/min/1.73 sqM); Albumin 2.8 g/dL (3.5-5.0); Alkaline Phosphatase 188 U/L (38-126); Anion Gap 11 mmol/L; Blood Urea Nitrogen 49 mg/dL (7-17); Calcium 8.4 mg/dL (8.4-10.2); Carbon Dioxide 19 mmol/L (22-30); Chloride 106 mmol/L (98-107); Glucose 156 mg/dL (74-99); Magnesium 2.3 mg/dL (1.6-2.3); Non-African American GFR(CKD) 22 (>60 ml/min/1.73 sqM); Potassium 5.1 mmol/L (3.5-5.1); Sodium 136 mmol/L (137-145); Total Bilirubin 0.4 mg/dL (0.2-1.3); Total Protein 6.2 g/dL (6.3-8.2)
[2023-04-25] MEDS: BUMETANIDE 0.25 MG/ML 10 ML VIAL IV SCH ×2 (13:34→21:00)
--- NOTE | 2023-04-25 14:03 | P.PN ---
Subjective Progress Note Date: 04/25/23 Hospital course: Patient is a very pleasant 57-year-old with a past medical history of type II DM completed by peripheral neuropathy with chronic nonhealing right foot ulcers, hypertension, and hyperlipidemia. She presented to the emergency department on 04/17/23 was directed by PCP for concerns of fluid overload. Chest x-ray in the emergency room was consistent with fluid overload. EKG revealed sinus rhythm short IA interval a 71 bpm with no other ST/T-wave changes noted as reviewed by me. Laboratory evaluation revealed BUN of 42, creatinine 1.82 (no baseline available for comparison), proBNP 16,800, glucose 147, an unremarkable UA and a negative respiratory viral panel negative. Pt was seen by ID regarding her RLE heel ulcer, and wound cultures returned polymicrobial. She was initially treated with unasyn, then switched to zosyn when cultures returned + for pseudomonas, enterococcus faecalis, artemio, and providencia rettgeri. Bone scan and Foot XR negative for osteomyelitis. Echo showed EF 40-45%, with severe pHTN. Renal function elevating, IV Lasix was discontinued and patient switched to torsemide by cardiology. Renal function continues to elevate with BUN of 48, creatinine 2.52, and GFR of 20. Patient also with hyperkalemia this morning with potassium of 5.2.. Orders placed for consult to nephrology. Aldactone discontinued. Patient given a single dose of calcium gluconate 2 g IVPB and sodium bicarb 1 amp. Hyperkalemia resolved. Patient was evaluated by section supervisor, she underwent ultrasound of kidneys and bladder which showed no evidence for acute process and ruled out hydronephrosis. Nephrology stating acute kidney injury possibly component of cardiorenal syndrome status post diarrhea but also unable to rule out underlying chronic kidney disease/previous labs are not available for comparison. Retarder Operator recommended 1-2 days of IV iron and starting patient on Aranesp with outpatient follow-up for CKD. Once cleared by nephrology plan is is for discharge home on Augmentin and ciprofloxacin for treatment of infected ulcer. Physical exam: Pt seen and fully evaluated at the bedside this morning, she denies having any new complaints or concerns at this time. Vital signs reviewed and stable. General: Nontoxic, no distress and appears stated age. Derm: Skin warm and dry, normal coloration for ethnicity. Head: Atraumatic, normocephalic and symmetric. Eyes: EOMs intact, no lid lag, and anicteric sclera Mouth: no lip lesions, mucus membranes moist Cardiovascular: regular rate and rhythm with normal S1S2, no murmur, positive posterior tibial pulses bilaterally, and cap refill < 2 seconds. Lungs: Respirations even, regular, and unlabored on room air. Lungs CTA bilaterally, no rhonchi, no rales, no wheezing, and no accessory muscle usage. Abdominal: soft, nontender to palpation, no guarding, no appreciable organomegaly Ext: ROM intact. No gross muscle atrophy, no edema, no contractures Neuro: Speech clear, face symmetrical and CN II-XII grossly intact with no noted focal neuro deficits Psych: Alert and oriented to person, place, time, and situation. Appropriate and pleasant affect. Assessment and Plan of Care: Acute kidney injury on suspected underlying chronic kidney disease Hyperkalemia, resolved Acute CHF exacerbation Diabetic right foot ulcers with superimposed infection, chronic Iron Deficiency Anemia superimposed on Anemia of Chronic Disease Chronic conditions: Hypertension, hyperlipidemia -Cardiology evaluated made medication changes by discontinuation of amlodipine and maximizing carvedilol. Cardiology clearing patient from cardiac perspective recommending patient follow-up outpatient for scheduling of right and left heart cath to further evaluate pulmonary hypertension. -Nephrology evaluated and recommending three-day course of Ferric Sodium followed by starting patient on Aranesp with recommendations for outpatient follow-up for further evaluation of CKD. -Discontinued Aldactone and lisinopril secondary to hyperkalemia. -Patient to continue with atorvastatin 40 mg daily, carvedilol 25 mg twice daily, Farxiga 5 mg daily, Zetia 10 mg daily, and torsemide 40 mg daily -Wound care and infectious disease following. Patient to continue Zosyn 3.375 g every 8 hours as recommended by infectious disease physician -Wound culture right foot was reviewed resulting positive for pseudomonas aeruginosa, enterococcus faecalis, artemio albicans, Providencia rettgeri. -Patient is on day 2 of 3 day course of Ferric Sodium, tentative plan is for discharge tomorrow morning. Nephrology placing pt back on IV diuretic for 24 hours with plans to discharge home on oral tomorrow. Data reviewed: -Wound culture right foot positive for pseudomonas aeruginosa, enterococcus faecalis, artemio albicans, Providencia rettgeri. -Labs completed and reviewed. CBC showing stable normocytic anemia with hemoglobin of 9.0. BMP revealing mild hypocarbia with bicarb of 19 and anion gap of 11 with renal function remaining elevated but stable with BUN of 49, c reatinine 2.40, GFR of 22. -Vital signs reviewed. Blood pressure 142/65, heart rate 60, respiratory rate 18, and SpO2 of 96% on room air. DVT prophylaxis: Lovenox CODE STATUS: Full Code Anticipated discharge place: Home with home care Anticipated discharge date: 04/26/23 Patient was seen independently by Nurse Pracitioner. This document was prepared using [employer] dictation software. Please allow for errors in trolley wire installer, while rare they do occur. Objective - Vital Signs Vital signs: Vital Signs Temp 97.7 F 04/24/23 19:46 Pulse 60 04/25/23 03:36 Resp 18 04/25/23 03:36 BP 142/65 04/25/23 03:36 Pulse Ox 96 04/25/23 03:36 FiO2 Intake & Output 04/24/23 04/25/23 04/25/23 18:59 06:59 18:59 Intake Total 708 797 480 Output Total 600 200 Balance 108 597 480 Weight 70.2 kg Intake: Oral 708 797 480 Output: Urine 600 200 Other: Voiding Method Toilet Bedside Commode # Voids 1 - Labs CBC & Chem 7: 04/25/23 06:53 04/25/23 06:53 Labs: Abnormal Lab Results - Last 24 Hours (Table) 04/24/23 04/24/23 04/24/23 Range/Units 10:53 10:53 11:38 RBC 3.37 L (3.80-5.40) m/uL Hgb 8.8 L (11.4-16.0) gm/dL Hct 29.5 L (34.0-46.0) % MCHC 29.9 L (31.0-37.0) g/dL Sodium 136 L (137-145) mmol/L Carbon Dioxide 20 L (22-30) mmol/L BUN 51 H (7-17) mg/dL Creatinine 2.48 H (0.52-1.04) mg/dL Glucose 232 H (74-99) mg/dL POC Glucose (mg/dL) 236 H (70-110) mg/dL Calcium 8.3 L (8.4-10.2) mg/dL 12/04/24/23 04/25/23 Range/Units 16:24 20:38 06:12 RBC (3.80-5.40) m/uL Hgb (11.4-16.0) gm/dL Hct (34.0-46.0) % MCHC (31.0-37.0) g/dL Sodium (137-145) mmol/L Carbon Dioxide (22-30) mmol/L BUN (7-17) mg/dL Creatinine (0.52-1.04) mg/dL Glucose (74-99) mg/dL POC Glucose (mg/dL) 146 H 184 H 184 H (70-110) mg/dL Calcium (8.4-10.2) mg/dL 04/25/23 Range/Units 06:53 RBC 3.39 L (3.80-5.40) m/uL Hgb 9.0 L (11.4-16.0) gm/dL Hct 28.9 L (34.0-46.0) % MCHC (31.0-37.0) g/dL Sodium (137-145) mmol/L Carbon Dioxide (22-30) mmol/L BUN (7-17) mg/dL Creatinine (0.52-1.04) mg/dL Glucose (74-99) mg/dL POC Glucose (mg/dL) (70-110) mg/dL Calcium (8.4-10.2) mg/dL
[2023-04-25] MEDS: SODIUM FERRIC GLUCONAT-SUCROSE 125 MG in SODIUM CHLORIDE 0.9% 100 ML IVPB SCH (15:05)
[2023-04-25 16:44] LABS: Glucose,Whole Blood 219 mg/dL (70-110)
--- NOTE | 2023-04-25 17:41 | P.PN ---
Subjective Progress Note Date: 04/24/23 Principal diagnosis: Reason for follow-up his right heel diabetic foot infection and wound Patient is a 57-year-old female with a past medical history significant for diabetes mellitus hypertension hyperlipidemia patient did have a history of chronic nonhealing wound to the right heel area, patient was sent to the ER for nonhealing of the wound concerning for possible deep infection. On today's evaluation that is 04/24/2023, the patient continues to be afebrile patient is breathing comfortably on room air, the patient denies having any chest pain shortness of breath or cough no nausea vomiting no abdominal pain or diarrhea denies pain to the right heel wound area. Patient did have a white count of 6.4, creatinine is 2.48 Objective - Vital Signs Vital signs: Vital Signs Temp 98.0 F 04/24/23 10:00 Pulse 63 04/24/23 11:56 Resp 18 04/24/23 11:56 BP 147/86 04/24/23 11:56 Pulse Ox 96 04/24/23 11:56 FiO2 Intake & Output 04/23/23 04/24/23 04/24/23 18:59 06:59 18:59 Intake Total 354 354 Output Total 300 600 Balance 54 -246 Weight 69.9 kg Intake: Oral 354 354 Output: Urine 300 600 Other: Voiding Method Toilet Toilet Bedside Commode Bedside Commode # Voids 2 - Exam GENERAL DESCRIPTION: Middle-aged female lying in bed in no distress RESPIRATORY SYSTEM: Unlabored breathing , decreased breath sounds at bases HEART: S1 S2 regular rate and rhythm , ABDOMEN: Soft , no tenderness EXTREMITIES: Right heel wound is currently dressed - Labs CBC & Chem 7: 04/25/23 06:53 04/25/23 06:53 Labs: Abnormal Lab Results - Last 24 Hours (Table) 04/23/23 04/23/23 04/24/23 Range/Units 16:21 20:04 05:47 RBC (3.80-5.40) m/uL Hgb (11.4-16.0) gm/dL Hct (34.0-46.0) % MCHC (31.0-37.0) g/dL Sodium (137-145) mmol/L Carbon Dioxide (22-30) mmol/L BUN (7-17) mg/dL Creatinine (0.52-1.04) mg/dL Glucose (74-99) mg/dL POC Glucose (mg/dL) 128 H 141 H 158 H (70-110) mg/dL Calcium (8.4-10.2) mg/dL 04/24/23 04/24/23 04/24/23 Range/Units 10:53 10:53 11:38 RBC 3.37 L (3.80-5.40) m/uL Hgb 8.8 L (11.4-16.0) gm/dL Hct 29.5 L (34.0-46.0) % MCHC 29.9 L (31.0-37.0) g/dL Sodium 136 L (137-145) mmol/L Carbon Dioxide 20 L (22-30) mmol/L BUN 51 H (7-17) mg/dL Creatinine 2.48 H (0.52-1.04) mg/dL Glucose 232 H (74-99) mg/dL POC Glucose (mg/dL) 236 H (70-110) mg/dL Calcium 8.3 L (8.4-10.2) mg/dL Microbiology - Last 24 Hours (Table) 04/18/23 13:35 Blood Culture - Final Blood 04/18/23 14:00 Blood Culture - Final Blood Assessment and Plan (1) Cellulitis Current Visit: Yes Status: Acute Code(s): L03.90 - CELLULITIS, UNSPECIFIED SNOMED Code(s): 794724270 (2) Pressure ulcer of right heel, stage 3 Current Visit: Yes Status: Acute Code(s): L89.613 - PRESSURE ULCER OF RIGHT HEEL, STAGE 3 SNOMED Code(s): 56891430285744 (3) Type 2 diabetes mellitus with foot ulcer Current Visit: Yes Status: Acute Code(s): E11.621 - TYPE 2 DIABETES MELLITUS WITH FOOT ULCER; L97.509 - NON-PRESSURE CHRONIC ULCER OTH PRT UNSP FOOT W UNSP SEVERITY SNOMED Code(s): 752623325 Plan: 1patient presented to hospital with a chronic nonhealing wound to the right heel area which apparently has been there for more than a month failing outpatient oral local treatment, did not mention she received any antibiotic therapy we will need to cover for the polymicrobial ananya usually associated with diabetic foot infection 2 x-ray did not show any bony destruction and the bonescan was negative for osteomyelitis,local culture currently growing Pseudomonas aeruginosa Enterococcus and procidentia. 3patient noticed to have slight worsening of the kidney functionFor which nephrology has evaluated the patient we will continue the patient on Zosyn while inpatient and transition to oral antibiotics on discharge Dictation was produced using [employer] dictation software. please excuse any grammatical, word or spelling errors. Time with Patient: Less than 30
--- NOTE | 2023-04-25 17:42 | P.PN ---
Subjective Progress Note Date: 04/25/23 Principal diagnosis: Reason for follow-up his right heel diabetic foot infection and wound Patient is a 57-year-old female with a past medical history significant for diabetes mellitus hypertension hyperlipidemia patient did have a history of chronic nonhealing wound to the right heel area, patient was sent to the ER for nonhealing of the wound concerning for possible deep infection. On today's evaluation that is 04/25/2023 patient denies having any fever or any chills the patient is breathing comfortably on room air without need for supplemental oxygen denies any nausea no vomiting no chest pain shortness of breath or cough denies pain to the right heel wound area. Patient white count of 6.4 creatinine is 2.40 Objective - Vital Signs Vital signs: Vital Signs Temp 97.6 F 04/25/23 09:22 Pulse 66 04/25/23 11:42 Resp 16 04/25/23 11:42 BP 160/79 04/25/23 11:42 Pulse Ox 97 04/25/23 11:42 FiO2 Intake & Output 04/24/23 04/25/23 04/25/23 18:59 06:59 18:59 Intake Total 708 797 480 Output Total 600 200 Balance 108 597 480 Weight 70.2 kg Intake: Oral 708 797 480 Output: Urine 600 200 Other: Voiding Method Toilet Toilet Bedside Commode Bedside Commode # Voids 1 - Exam GENERAL DESCRIPTION: Middle-aged female lying in bed in no distress RESPIRATORY SYSTEM: Unlabored breathing , decreased breath sounds at bases HEART: S1 S2 regular rate and rhythm , ABDOMEN: Soft , no tenderness EXTREMITIES: Right heel wound is currently dressed - Labs CBC & Chem 7: 04/25/23 06:53 04/25/23 06:53 Labs: Abnormal Lab Results - Last 24 Hours (Table) 04/24/23 04/24/23 04/25/23 Range/Units 16:24 20:38 06:12 RBC (3.80-5.40) m/uL Hgb (11.4-16.0) gm/dL Hct (34.0-46.0) % POC Glucose (mg/dL) 146 H 184 H 184 H (70-110) mg/dL 04/25/23 04/25/23 Range/Units 06:53 11:27 RBC 3.39 L (3.80-5.40) m/uL Hgb 9.0 L (11.4-16.0) gm/dL Hct 28.9 L (34.0-46.0) % POC Glucose (mg/dL) 223 H (70-110) mg/dL Assessment and Plan (1) Cellulitis Current Visit: Yes Status: Acute Code(s): L03.90 - CELLULITIS, UNSPECIFIED SNOMED Code(s): 206005894 (2) Pressure ulcer of right heel, stage 3 Current Visit: Yes Status: Acute Code(s): L89.613 - PRESSURE ULCER OF RIGHT HEEL, STAGE 3 SNOMED Code(s): 97911807558418 (3) Type 2 diabetes mellitus with foot ulcer Current Visit: Yes Status: Acute Code(s): E11.621 - TYPE 2 DIABETES MELLITUS WITH FOOT ULCER; L97.509 - NON-PRESSURE CHRONIC ULCER OTH PRT UNSP FOOT W UNSP S [facility] SNOMED Code(s): 109029933 Plan: 1patient presented to hospital with a chronic nonhealing wound to the right heel area which apparently has been there for more than a month failing outpatient oral local treatment, did not mention she received any antibiotic therapy we will need to cover for the polymicrobial ananya usually associated with diabetic foot infection 2 x-ray did not show any bony destruction and the bonescan was negative for osteomyelitis,local culture currently growing Pseudomonas aeruginosa Enterococcus and procidentia. 3patient noticed to have slight worsening of the kidney functionFor which nephrology has evaluated 4-Patient to continue with the Zosyn while inpatient and will be transition to oral Cipro and Augmentin on discharge once stable from nephrology standpoint local wound care to continue with the dry Aquacel dressing change every 48 hours Dictation was produced using [employer] dictation software. please excuse any grammatical, word or spelling errors. Time with Patient: Less than 30
[2023-04-25 20:10] LABS: Glucose,Whole Blood 258 mg/dL (70-110)
[2023-04-25] MEDS: ACETAMINOPHEN TAB 325 MG TAB PO PRN (21:01)
[2023-04-26 06:27] LABS: HCT 28.8 % (34.0-46.0); HGB 8.6 gm/dL (11.4-16.0); Hypochromasia Marked; MCH 25.6 pg (25.0-35.0); MCV 85.3 fL (80.0-100.0); Mean Platelet Volume 9.5; Platelet Count 248 k/uL (150-450); RBC 3.37 m/uL (3.80-5.40); RDW 14.9 % (11.5-15.5); WBC 5.7 k/uL (3.8-10.6)
[2023-04-26 06:48] LABS: ALT 31 U/L (4-34); AST 23 U/L (14-36); African American GFR (CKD) 28 (>60 ml/min/1.73 sqM); Albumin 2.8 g/dL (3.5-5.0); Alkaline Phosphatase 171 U/L (38-126); Anion Gap 9 mmol/L; Blood Urea Nitrogen 48 mg/dL (7-17); Calcium 8.3 mg/dL (8.4-10.2); Carbon Dioxide 26 mmol/L (22-30); Chloride 105 mmol/L (98-107); Glucose 80 mg/dL (74-99); Magnesium 2.3 mg/dL (1.6-2.3); Non-African American GFR(CKD) 24 (>60 ml/min/1.73 sqM); Potassium 5.1 mmol/L (3.5-5.1); Sodium 140 mmol/L (137-145); Total Bilirubin 0.4 mg/dL (0.2-1.3)
[2023-04-26 07:31] LABS: Glucose,Whole Blood 89 mg/dL (70-110)
[2023-04-26] MEDS: INSULIN ASPART (NovoLOG) 100 UNIT/ML VIAL SQ SCH ×4 (07:44→21:20)
--- NOTE | 2023-04-26 08:33 | P.PN ---
Subjective Patient is seen in follow-up for acute kidney injury. Creatinine peaked at 2.5 to this admission and is 2.18 today. On IV Bumex and Farxiga. Admits to good urine output. Vital signs are stable. General: No acute distress. HEENT: Head exam is unremarkable. LUNGS: No audible rhonchi or wheezes. HEART: Rate and Rhythm are regular. ABDOMEN: Nontender. EXTREMITITES: 1+ edema. Right foot tract. No drainage. Objective - Vital Signs Vital signs: Vital Signs Temp 97.6 F 04/26/23 07:17 Pulse 68 04/26/23 07:17 Resp 16 04/26/23 07:17 BP 164/77 04/26/23 07:17 Pulse Ox 96 04/26/23 07:17 FiO2 Intake & Output 04/25/23 04/26/23 04/26/23 18:59 06:59 18:59 Intake Total 1680 830 Output Total 900 Balance 780 830 Intake: Oral 1680 830 Output: Urine 900 Other: Voiding Method Toilet Toilet Bedside Commode Bedside Commode # Voids 2 3 # Bowel Movements 2 - Labs CBC & Chem 7: 04/26/23 05:57 04/26/23 05:57 Labs: Abnormal Lab Results - Last 24 Hours (Table) 04/25/23 04/25/23 04/25/23 Range/Units 06:53 11:27 16:43 RBC (3.80-5.40) m/uL Hgb (11.4-16.0) gm/dL Hct (34.0-46.0) % MCHC (31.0-37.0) g/dL Sodium 136 L (137-145) mmol/L Carbon Dioxide 19 L (22-30) mmol/L BUN 49 H (7-17) mg/dL Creatinine 2.40 H (0.52-1.04) mg/dL Glucose 156 H (74-99) mg/dL POC Glucose (mg/dL) 223 H 219 H (70-110) mg/dL Calcium (8.4-10.2) mg/dL Alkaline Phosphatase 188 H (38-126) U/L Total Protein 6.2 L (6.3-8.2) g/dL Albumin 2.8 L (3.5-5.0) g/dL 04/25/23 04/26/23 04/26/23 Range/Units 20:07 05:57 05:57 RBC 3.37 L (3.80-5.40) m/uL Hgb 8.6 L (11.4-16.0) gm/dL Hct 28.8 L (34.0-46.0) % MCHC 30.0 L (31.0-37.0) g/dL Sodium (137-145) mmol/L Carbon Dioxide (22-30) mmol/L BUN 48 H (7-17) mg/dL Creatinine 2.18 H (0.52-1.04) mg/dL Glucose (74-99) mg/dL POC Glucose (mg/dL) 258 H (70-110) mg/dL Calcium 8.3 L (8.4-10.2) mg/dL Alkaline Phosphatase 171 H (38-126) U/L Total Protein 6.0 L (6.3-8.2) g/dL Albumin 2.8 L (3.5-5.0) g/dL Assessment and Plan Plan: Assessment: 1. Acute kidney injury secondary to ATN secondary to cardiorenal syndrome. No hydronephrosis noted on kidney ultrasound. Creatinine peaked at 2.5 to this admission and is 2.18 today. Unknown baseline renal function. UA reveals 1+ protein. Possibly underlying diabetic kidney disease. Further workup outpatient. 2. Acute on chronic systolic CHF with ejection fraction of 40-45% with severe pulmonary hypertension. 3. Volume overload. Improving with diuresis. 4. Right lower extremity cellulitis on antibiotics. 5. Diabetes mellitus. 6. Anemia. Iron deficiency noted. Likely component of underlying chronic kidney disease. On IV iron. Also on Aranesp. 7. Benign hypertension. Plan: Maintain IV Bumex. Maintain Farxiga. 1500 mL fluid restriction. Add amlodipine. Avoid nephrotoxins.
[2023-04-26] MEDS: carvediloL 12.5 MG TAB PO SCH ×2 (09:21→17:04)
[2023-04-26] MEDS: GABAPENTIN 300 MG CAP PO SCH ×4 (09:21→21:09)
[2023-04-26] MEDS: ENOXAPARIN 30 MG/0.3 ML SYRINGE SQ SCH (09:21)
[2023-04-26] MEDS: amLODIPine 5 MG TAB PO SCH (09:21)
[2023-04-26] MEDS: DAPAGLIFLOZIN PROPANEDIOL 5 MG TABLET PO SCH (09:22)
[2023-04-26] MEDS: SERTRALINE 50 MG TAB PO SCH (09:22)
[2023-04-26] MEDS: BUMETANIDE 0.25 MG/ML 10 ML VIAL IV SCH ×2 (09:22→21:18)
[2023-04-26] MEDS: MULTIVITAMINS, THERA 1 EACH TAB PO SCH (09:22)
[2023-04-26] MEDS: EZETIMIBE 10 MG TAB PO SCH (09:22)
[2023-04-26] MEDS: PIPERACILLIN-TAZOBACTAM 3.375 GM in SODIUM CHLORIDE 0.9% 100 ML IVPB SCH ×3 (09:22→23:07)
[2023-04-26] MEDS: ATORVASTATIN 40 MG TAB PO SCH (09:22)
[2023-04-26] MEDS: NICOTINE 14MG/24HR PATCH TRANSDERM SCH (09:23)
[2023-04-26] MEDS: INSULIN DETEMIR (LEVEMIR) 100 UNIT/ML SYR SQ SCH (10:45)
[2023-04-26 11:59] LABS: Glucose,Whole Blood 147 mg/dL (70-110)
[2023-04-26] MEDS: SODIUM FERRIC GLUCONAT-SUCROSE 125 MG in SODIUM CHLORIDE 0.9% 100 ML IVPB SCH (14:38)
--- NOTE | 2023-04-26 15:56 | P.PN ---
Subjective Progress Note Date: 04/26/23 Hospital course: Patient is a very pleasant 57-year-old with a past medical history of type II DM completed by peripheral neuropathy with chronic nonhealing right foot ulcers, hypertension, and hyperlipidemia. She presented to the emergency department on 04/17/23 was directed by PCP for concerns of fluid overload. Chest x-ray in the emergency room was consistent with fluid overload. EKG revealed sinus rhythm short TX interval a 71 bpm with no other ST/T-wave changes noted as reviewed by me. Laboratory evaluation revealed BUN of 42, creatinine 1.82 (no baseline available for comparison), proBNP 16,800, glucose 147, an unremarkable UA and a negative respiratory viral panel negative. Pt was seen by ID regarding her RLE heel ulcer, and wound cultures returned polymicrobial. She was initially treated with unasyn, then switched to zosyn when cultures returned + for pseudomonas, enterococcus faecalis, artemio, and providencia rettgeri. Bone scan and Foot XR negative for osteomyelitis. Echo showed EF 40-45%, with severe pHTN. Renal function elevating, IV Lasix was discontinued and patient switched to torsemide by cardiology. Renal function continues to elevate with BUN of 48, creatinine 2.52, and GFR of 20. Patient also with hyperkalemia this morning with potassium of 5.2.. Orders placed for consult to nephrology. Aldactone discontinued. Patient given a single dose of calcium gluconate 2 g IVPB and sodium bicarb 1 amp. Hyperkalemia resolved. Patient was evaluated by passenger service manager, she underwent ultrasound of kidneys and bladder which showed no evidence for acute process and ruled out hydronephrosis. Nephrology stating acute kidney injury possibly component of cardiorenal syndrome status post diarrhea but also unable to rule out underlying chronic kidney disease/previous labs are not available for comparison. Ice Carver recommended 1-2 days of IV iron and starting patient on Aranesp with outpatient follow-up for CKD. Once cleared by nephrology plan is is for discharge home on Augmentin and ciprofloxacin for treatment of infected ulcer. Physical exam: Pt seen and fully evaluated at the bedside this morning, she denies having any new complaints or concerns at this time. Vital signs reviewed and stable. General: Nontoxic, no distress and appears stated age. Derm: Skin warm and dry, normal coloration for ethnicity. Head: Atraumatic, normocephalic and symmetric. Eyes: EOMs intact, no lid lag, and anicteric sclera Mouth: no lip lesions, mucus membranes moist Cardiovascular: regular rate and rhythm with normal S1S2, no murmur, positive posterior tibial pulses bilaterally, and cap refill < 2 seconds. Lungs: Respirations even, regular, and unlabored on room air. Lungs CTA bilaterally, no rhonchi, no rales, no wheezing, and no accessory muscle usage. Abdominal: soft, nontender to palpation, no guarding, no appreciable organomegaly Ext: ROM intact. No gross muscle atrophy, scant lower extremity edema, no contractures Neuro: Speech clear, face symmetrical and CN II-XII grossly intact with no noted focal neuro deficits Psych: Alert and oriented to person, place, time, and situation. Appropriate and pleasant affect. Assessment and Plan of Care: Acute kidney injury on suspected underlying chronic kidney disease Hyperkalemia, resolved Acute systolic CHF exacerbation with EF of 40-45% Severe pulmonary hypertension Diabetic right foot ulcers with superimposed infection, chronic, POA Iron Deficiency Anemia superimposed on Anemia of Chronic Disease Chronic conditions: Hypertension, hyperlipidemia -Cardiology evaluated made medication changes by discontinuation of amlodipine and maximizing carvedilol. Cardiology clearing patient from cardiac perspective recommending patient follow-up outpatient for scheduling of right and left heart cath to further evaluate pulmonary hypertension. -Nephrology evaluated and recommending three-day course of Ferric Sodium follo wed by starting patient on Aranesp with recommendations for outpatient follow-up for further evaluation of CKD. -Discontinued Aldactone and lisinopril secondary to hyperkalemia. -Patient to continue with atorvastatin 40 mg daily, carvedilol 25 mg twice daily, Farxiga 5 mg daily, and Zetia 10 mg daily. -Nephrology started patient back on Bumex 1 mg IVP every 12 hours -Wound care and infectious disease following. Patient to continue Zosyn 3.375 g every 8 hours as recommended by infectious disease physician with plan for discharge home on oral antibiotics with Augmentin and ciprofloxacin for t reatment of infected ulcer. -Wound culture right foot was reviewed resulting positive for pseudomonas aeruginosa, enterococcus faecalis, artemio albicans, Providencia rettgeri. -Patient is on day 3 of 3 day course of Ferric Sodium. -Nephrology recommending patient continue on IV diuretic for an additional 24-48 hours with plans to discharge home on oral torsemide. Data reviewed: -Wound culture right foot positive for pseudomonas aeruginosa, enterococcus faecalis, artemio albicans, Providencia rettgeri. -Labs completed and reviewed. CBC showing stable normocytic anemia with hemoglobin of 8.6 BMP revealing BUN of 48, creatinine 2.18, GFR of 24. -Vital signs reviewed. Blood pressure 164/77, heart rate 68, respiratory rate 16, temp 97.6F, SpO2 96% on room air. DVT prophylaxis: Lovenox CODE STATUS: Full Code Anticipated discharge place: Home with home care Anticipated discharge date: Within the next 24-48 hours Patient was seen independently by Nurse Pracitioner. This document was prepared using [employer] dictation software. Please allow for errors in recovery operator helper, while rare they do occur. Jacinto Bentley SHOWCASE MAKER rendered care for this patient independently, reviewed the findings and plan as documented in the note above. I did not physically speak with or examine the patient on this date. Will benefit for ARB in the future once renal fct and K+ stable. Objective - Vital Signs Vital signs: Vital Signs Temp 97.6 F 04/26/23 07:17 Pulse 68 04/26/23 07:17 Resp 16 04/26/23 07:17 BP 164/77 04/26/23 07:17 Pulse Ox 96 04/26/23 07:17 FiO2 Intake & Output 04/25/23 04/26/23 04/26/23 18:59 06:59 18:59 Intake Total 1680 830 Output Total 900 Balance 780 830 Intake: Oral 1680 830 Output: Urine 900 Other: Voiding Method Toilet Toilet Bedside Commode Bedside Commode # Voids 2 3 # Bowel Movements 2 - Labs CBC & Chem 7: 04/26/23 05:57 04/26/23 05:57 Labs: Abnormal Lab Results - Last 24 Hours (Table) 04/25/23 04/25/23 04/25/23 Range/Units 06:53 11:27 16:43 RBC (3.80-5.40) m/uL Hgb (11.4-16.0) gm/dL Hct (34.0-46.0) % MCHC (31.0-37.0) g/dL Sodium 136 L (137-145) mmol/L Carbon Dioxide 19 L (22-30) mmol/L BUN 49 H (7-17) mg/dL Creatinine 2.40 H (0.52-1.04) mg/dL Glucose 156 H (74-99) mg/dL POC Glucose (mg/dL) 223 H 219 H (70-110) mg/dL Calcium (8.4-10.2) mg/dL Alkaline Phosphatase 188 H (38-126) U/L Total Protein 6.2 L (6.3-8.2) g/dL Albumin 2.8 L (3.5-5.0) g/dL 04/25/23 04/26/23 04/26/23 Range/Units 20:07 05:57 05:57 RBC 3.37 L (3.80-5.40) m/uL Hgb 8.6 L (11.4-16.0) gm/dL Hct 28.8 L (34.0-46.0) % MCHC 30.0 L (31.0-37.0) g/dL Sodium (137-145) mmol/L Carbon Dioxide (22-30) mmol/L BUN 48 H (7-17) mg/dL Creatinine 2.18 H (0.52-1.04) mg/dL Glucose (74-99) mg/dL POC Glucose (mg/dL) 258 H (70-110) mg/dL Calcium 8.3 L (8.4-10.2) mg/dL Alkaline Phosphatase 171 H (38-126) U/L Total Protein 6.0 L (6.3-8.2) g/dL Albumin 2.8 L (3.5-5.0) g/dL
[2023-04-26 17:42] LABS: Glucose,Whole Blood 206 mg/dL (70-110)
[2023-04-26 20:39] LABS: Glucose,Whole Blood 200 mg/dL (70-110)
[2023-04-27] MEDS: ENOXAPARIN 30 MG/0.3 ML SYRINGE SQ SCH (07:16)
[2023-04-27] MEDS: PIPERACILLIN-TAZOBACTAM 3.375 GM in SODIUM CHLORIDE 0.9% 100 ML IVPB SCH ×4 (07:16→23:26)
[2023-04-27] MEDS: SERTRALINE 50 MG TAB PO SCH (07:17)
[2023-04-27] MEDS: NICOTINE 14MG/24HR PATCH TRANSDERM SCH (07:17)
[2023-04-27] MEDS: EZETIMIBE 10 MG TAB PO SCH (07:17)
[2023-04-27] MEDS: MULTIVITAMINS, THERA 1 EACH TAB PO SCH (07:17)
[2023-04-27] MEDS: GABAPENTIN 300 MG CAP PO SCH ×4 (07:17→21:22)
[2023-04-27] MEDS: amLODIPine 5 MG TAB PO SCH (07:17)
[2023-04-27] MEDS: ATORVASTATIN 40 MG TAB PO SCH (07:18)
[2023-04-27] MEDS: carvediloL 12.5 MG TAB PO SCH ×2 (07:18→16:54)
[2023-04-27] MEDS: DAPAGLIFLOZIN PROPANEDIOL 5 MG TABLET PO SCH (07:18)
[2023-04-27 07:19] LABS: Glucose,Whole Blood 155 mg/dL (70-110)
[2023-04-27] MEDS: INSULIN DETEMIR (LEVEMIR) 100 UNIT/ML SYR SQ SCH (07:57)
[2023-04-27] MEDS: INSULIN ASPART (NovoLOG) 100 UNIT/ML VIAL SQ SCH ×4 (07:57→21:22)
[2023-04-27] MEDS: BUMETANIDE 0.25 MG/ML 10 ML VIAL IV SCH ×2 (08:45→21:22)
[2023-04-27 10:03] LABS: BUN/Creat Ratio 22.63 Ratio (12.00-20.00); Calcium 8.2 mg/dL (8.7-10.3); Carbon Dioxide 23.5 mmol/L (21.6-31.8); Chloride 105 mmol/L (96-109); Glucose 152 mg/dL (70-110); Magnesium 2.4 mg/dL (1.5-2.4); Potassium 4.5 mmol/L (3.5-5.5); Sodium 138 mmol/L (135-145)
--- NOTE | 2023-04-27 11:53 | P.PN ---
Subjective Patient is seen in follow-up for acute kidney injury. Creatinine peaked at 2.5 to this admission and is 1.9 today. On IV Bumex and Farxiga. Admits to good urine output. Vital signs are stable. General: No acute distress. HEENT: Head exam is unremarkable. LUNGS: No audible rhonchi or wheezes. HEART: Rate and Rhythm are regular. ABDOMEN: Nontender. EXTREMITITES: 1+ edema. Right foot wrapped. No drainage. Objective - Vital Signs Vital signs: Vital Signs Temp 98.1 F 04/27/23 07:02 Pulse 71 04/27/23 07:02 Resp 18 04/27/23 07:02 BP 155/77 04/27/23 07:02 Pulse Ox 94 L 04/27/23 07:02 FiO2 Intake & Output 04/26/23 04/27/23 04/27/23 18:59 06:59 18:59 Other: Voiding Method Toilet Bedside Commode # Voids 1 3 # Bowel Movements 1 - Labs CBC & Chem 7: 04/26/23 05:57 04/27/23 04:42 Labs: Abnormal Lab Results - Last 24 Hours (Table) 04/26/23 04/26/23 04/26/23 Range/Units 11:54 17:40 20:36 BUN (9.0-27.0) mg/dL Creatinine (0.6-1.5) mg/dL Est GFR (CKD-EPI) (>=60) BUN/Creatinine Ratio (12.00-20.00) Ratio Glucose (70-110) mg/dL POC Glucose (mg/dL) 147 H 206 H 200 H (70-110) mg/dL Calcium (8.7-10.3) mg/dL 04/27/23 04/27/23 Range/Units 04:42 07:05 BUN 43.0 H (9.0-27.0) mg/dL Creatinine 1.9 H (0.6-1.5) mg/dL Est GFR (CKD-EPI) 30 L (>=60) BUN/Creatinine Ratio 22.63 H (12.00-20.00) Ratio Glucose 152 H (70-110) mg/dL POC Glucose (mg/dL) 155 H (70-110) mg/dL Calcium 8.2 L (8.7-10.3) mg/dL Assessment and Plan Plan: Assessment: 1. Acute kidney injury secondary to ATN secondary to cardiorenal syndrome. No hydronephrosis noted on kidney ultrasound. Creatinine peaked at 2.5 to this admission and is 1.9 today. Unknown baseline renal function. UA reveals 1+ protein. Possibly underlying diabetic kidney disease. Further workup outpatient. 2. Acute on chronic systolic CHF with ejection fraction of 40-45% with severe pulmonary hypertension. 3. Volume overload. Improving with diuresis. 4. Right lower extremity cellulitis on antibiotics. 5. Diabetes mellitus. 6. Anemia. Iron deficiency noted. Likely component of underlying chronic kidney disease. s/p IV iron. Also on Aranesp. 7. Benign hypertension. Stable. Plan: Maintain IV Bumex. Will give additional dose of Bumex this afternoon. Maintain Farxiga. 1500 mL fluid restriction. Amlodipine added 04/26/2023. Avoid nephrotoxins. Plan to transition to oral diuretics tomorrow. Discussed with primary team. I advised patient to maintain low-salt diet and fluid restriction of less than 50 ounces per day upon discharge. Patient also advised to monitor her weight closely at home and to notify physician if develops worsening edema or gains more than 3 pounds in 1 week duration. Repeat BMP and magnesium level 2-3 days postdischarge. Follow up outpatient in 1 week.
[2023-04-27 11:59] LABS: Glucose,Whole Blood 166 mg/dL (70-110)
--- NOTE | 2023-04-27 12:35 | P.PN ---
Subjective Progress Note Date: 04/26/23 Principal diagnosis: Reason for follow-up his right heel diabetic foot infection and wound Patient is a 57-year-old female with a past medical history significant for diabetes mellitus hypertension hyperlipidemia patient did have a history of chronic nonhealing wound to the right heel area, patient was sent to the ER for nonhealing of the wound concerning for possible deep infection. On today's evaluation that is 04/26/2023 the patient remains to be afebrile, the patient is breathing comfortably on room air patient denies having any chest pain shortness of breath or cough no nausea vomiting no abdominal pain and denies pain to the right heel wound area. Patient did have a white count of 5.7, creatinine is down to 2.18 Objective - Vital Signs Vital signs: Vital Signs Temp 97.8 F 04/26/23 12:27 Pulse 72 04/26/23 12:27 Resp 16 04/26/23 12:27 BP 164/81 04/26/23 12:27 Pulse Ox 90 L 04/26/23 12:27 FiO2 Intake & Output 04/25/23 04/26/23 04/26/23 18:59 06:59 18:59 Intake Total 1680 830 Output Total 900 Balance 780 830 Intake: Oral 1680 830 Output: Urine 900 Other: Voiding Method Toilet Toilet Toilet Bedside Commode Bedside Commode Bedside Commode # Voids 2 3 # Bowel Movements 2 - Exam GENERAL DESCRIPTION: Middle-aged female lying in bed in no distress RESPIRATORY SYSTEM: Unlabored breathing , decreased breath sounds at bases HEART: S1 S2 regular rate and rhythm , ABDOMEN: Soft , no tenderness EXTREMITIES: Right heel wound is currently dressed - Labs CBC & Chem 7: 04/26/23 05:57 04/27/23 04:42 Labs: Abnormal Lab Results - Last 24 Hours (Table) 04/25/23 04/25/23 04/26/23 Range/Units 16:43 20:07 05:57 RBC 3.37 L (3.80-5.40) m/uL Hgb 8.6 L (11.4-16.0) gm/dL Hct 28.8 L (34.0-46.0) % MCHC 30.0 L (31.0-37.0) g/dL BUN (7-17) mg/dL Creatinine (0.52-1.04) mg/dL POC Glucose (mg/dL) 219 H 258 H (70-110) mg/dL Calcium (8.4-10.2) mg/dL Alkaline Phosphatase (38-126) U/L Total Protein (6.3-8.2) g/dL Albumin (3.5-5.0) g/dL 04/26/23 04/26/23 Range/Units 05:57 11:54 RBC (3.80-5.40) m/uL Hgb (11.4-16.0) gm/dL Hct (34.0-46.0) % MCHC (31.0-37.0) g/dL BUN 48 H (7-17) mg/dL Creatinine 2.18 H (0.52-1.04) mg/dL POC Glucose (mg/dL) 147 H (70-110) mg/dL Calcium 8.3 L (8.4-10.2) mg/dL Alkaline Phosphatase 171 H (38-126) U/L Total Protein 6.0 L (6.3-8.2) g/dL Albumin 2.8 L (3.5-5.0) g/dL Assessment and Plan (1) Cellulitis Current Visit: Yes Status: Acute Code(s): L03.90 - CELLULITIS, UNSPECIFIED SNOMED Code(s): 443959546 (2) Pressure ulcer of right heel, stage 3 Current Visit: Yes Status: Acute Code(s): L89.613 - PRESSURE ULCER OF RIGHT HEEL, STAGE 3 SNOMED Code(s): 27287713337041 (3) Type 2 diabetes mellitus with foot ulcer Current Visit: Yes Status: Acute Code(s): E11.621 - TYPE 2 DIABETES MELLITUS WITH FOOT ULCER; L97.509 - NON-PRESSURE CHRONIC ULCER OTH PRT UNSP FOOT W UNSP SEVERITY SNOMED Code(s): 637184036 Plan: 1patient presented to hospital with a chronic nonhealing wound to the right heel area which apparently has been there for more than a month failing outpatient oral local treatment, did not mention she received any antibiotic therapy we will need to cover for the polymicrobial ananya usually associated with diabetic foot infection 2 x-ray did not show any bony destruction and the bonescan was negative for osteomyelitis,local culture currently growing Pseudomonas aeruginosa Enterococcus and procidentia. 3patient noticed to have slight worsening of the kidney function , For the patient has been evaluated by neurology and the patient creatinine is improving. 4patient to be continued on Zosyn while inpatient and can be transition to oral antibiotics on discharge local wound care to continue with the dry Aquacel silver dressings Dictation was produced using [employer] dictation software. please excuse any grammatical, word or spelling errors. Time with Patient: Less than 30
--- NOTE | 2023-04-27 12:37 | P.PN ---
Subjective Progress Note Date: 04/27/23 Principal diagnosis: Reason for follow-up his right heel diabetic foot infection and wound Patient is a 57-year-old female with a past medical history significant for diabetes mellitus hypertension hyperlipidemia patient did have a history of chronic nonhealing wound to the right heel area, patient was sent to the ER for nonhealing of the wound concerning for possible deep infection. On today's evaluation that is 04/27/2023 the patient continues to be afebrile, the patient is breathing comfortably on room air and no need for supplemental oxygen patient denies having any chest pain shortness of breath or cough, the patient denies nausea vomiting no abdominal pain and denies pain to the right heel wound area. Patient did have a white count of 5.7 as of 04/26/2023, creatinine is down to 1.9 Objective - Vital Signs Vital signs: Vital Signs Temp 97.4 F L 04/27/23 11:35 Pulse 71 04/27/23 11:35 Resp 16 04/27/23 11:35 BP 143/75 04/27/23 11:35 Pulse Ox 94 L 04/27/23 11:35 FiO2 Intake & Output 04/26/23 04/27/23 04/27/23 18:59 06:59 18:59 Other: Voiding Method Toilet Bedside Commode # Voids 1 3 # Bowel Movements 1 - Exam GENERAL DESCRIPTION: Middle-aged female lying in bed in no distress RESPIRATORY SYSTEM: Unlabored breathing , decreased breath sounds at bases HEART: S1 S2 regular rate and rhythm , ABDOMEN: Soft , no tenderness EXTREMITIES: Right heel wound is currently dressed - Labs CBC & Chem 7: 04/26/23 05:57 04/27/23 04:42 Labs: Abnormal Lab Results - Last 24 Hours (Table) 04/26/23 04/26/23 04/27/23 Range/Units 17:40 20:36 04:42 BUN 43.0 H (9.0-27.0) mg/dL Creatinine 1.9 H (0.6-1.5) mg/dL Est GFR (CKD-EPI) 30 L (>=60) BUN/Creatinine Ratio 22.63 H (12.00-20.00) Ratio Glucose 152 H (70-110) mg/dL POC Glucose (mg/dL) 206 H 200 H (70-110) mg/dL Calcium 8.2 L (8.7-10.3) mg/dL 04/27/23 04/27/23 Range/Units 07:05 11:38 BUN (9.0-27.0) mg/dL Creatinine (0.6-1.5) mg/dL Est GFR (CKD-EPI) (>=60) BUN/Creatinine Ratio (12.00-20.00) Ratio Glucose (70-110) mg/dL POC Glucose (mg/dL) 155 H 166 H (70-110) mg/dL Calcium (8.7-10.3) mg/dL Assessment and Plan (1) Cellulitis Current Visit: Yes Status: Acute Code(s): L03.90 - CELLULITIS, UNSPECIFIED SNOMED Code(s): 411560770 (2) Pressure ulcer of right heel, stage 3 Current Visit: Yes Status: Acute Code(s): L89.613 - PRESSURE ULCER OF RIGHT HEEL, STAGE 3 SNOMED Code(s): 78565048061685 (3) Type 2 diabetes mellitus with foot ulcer Current Visit: Yes Status: Acute Code(s): E11.621 - TYPE 2 DIABETES MELLITUS WITH FOOT ULCER; L97.509 - NON-PRESSURE CHRONIC ULCER OTH PRT UNSP FOOT W UNSP SEVERITY SNOMED Code(s): 125418954 Plan: 1patient presented to hospital with a chronic nonhealing wound to the right heel area which apparently has been there for more than a month failing outpatient oral local treatment, did not mention she received any antibiotic therapy we will need to cover for the polymicrobial ananya usually associated with diabetic foot infection 2 x-ray did not show any bony destruction and the bonescan was negative for ost eomyelitis,local culture currently growing Pseudomonas aeruginosa Enterococcus and procidentia. 3patient noticed to have slight worsening of the kidney function , For the patient has been evaluated by neurology and the patient creatinine is improving. 4patient is slowly clinically improving patient is covered with Zosyn for the multiple pathogen she grew in the culture however patient be able to finish therapy with oral Cipro and Augmentin x 10 days on discharge Dictation was produced using [email or web address] dictation software. please excuse any grammatical, word or spelling errors. Time with Patient: Less than 30
[2023-04-27] MEDS ORDERED: BUMETANIDE 0.25 MG/ML 4 ML VIAL IVP ONE (14:00)
--- NOTE | 2023-04-27 15:33 | P.PN ---
Subjective Progress Note Date: 04/27/23 Hospital course: Patient is a very pleasant 57-year-old with a past medical history of type II DM completed by peripheral neuropathy with chronic nonhealing right foot ulcers, hypertension, and hyperlipidemia. She presented to the emergency department on 04/17/23 was directed by PCP for concerns of fluid overload. Chest x-ray in the emergency room was consistent with fluid overload. EKG revealed sinus rhythm short MA interval a 71 bpm with no other ST/T-wave changes noted as reviewed by me. Laboratory evaluation revealed BUN of 42, creatinine 1.82 (no baseline available for comparison), proBNP 16,800, glucose 147, an unremarkable UA and a negative respiratory viral panel negative. Pt was seen by ID regarding her RLE heel ulcer, and wound cultures returned polymicrobial. She was initially treated with unasyn, then switched to zosyn when cultures returned + for pseudomonas, enterococcus faecalis, artemio, and providencia rettgeri. Bone scan and Foot XR negative for osteomyelitis. Echo showed EF 40-45%, with severe pHTN. Renal function elevating, IV Lasix was discontinued and patient switched to torsemide by cardiology. Renal function continues to elevate with BUN of 48, creatinine 2.52, and GFR of 20. Patient also with hyperkalemia this morning with potassium of 5.2.. Orders placed for consult to nephrology. Aldactone discontinued. Patient given a single dose of calcium gluconate 2 g IVPB and sodium bicarb 1 amp. Hyperkalemia resolved. Patient was evaluated by call out operator, she underwent ultrasound of kidneys and bladder which showed no evidence for acute process and ruled out hydronephrosis. Nephrology stating acute kidney injury possibly component of cardiorenal syndrome status post diarrhea but also unable to rule out underlying chronic kidney disease/previous labs are not available for comparison. Accelerator Operator recommended 1-2 days of IV iron and starting patient on Aranesp with outpatient follow-up for CKD. Once cleared by nephrology plan is is for discharge home on Augmentin and ciprofloxacin for treatment of infected ulcer. Physical exam: Pt seen and fully evaluated at the bedside this morning, she denies having any new complaints or concerns at this time she continues to report feeling swelling and bloated and does not feel she is ready to go home. Vital signs reviewed and stable. General: Nontoxic, no distress and appears stated age. Derm: Skin warm and dry, normal coloration for ethnicity. Head: Atraumatic, normocephalic and symmetric. Eyes: EOMs intact, no lid lag, and anicteric sclera Mouth: no lip lesions, mucus membranes moist Cardiovascular: regular rate and rhythm with normal S1S2, no murmur, positive posterior tibial pulses bilaterally, and cap refill < 2 seconds. Lungs: Respirations even, regular, and unlabored on room air. Lungs CTA bilaterally, no rhonchi, no rales, no wheezing, and no accessory muscle usage. Abdominal: soft, nontender to palpation, no guarding, no appreciable organomegaly Ext: ROM intact. No gross muscle atrophy, 1+ bilateral lower extremity edema, no contractures Neuro: Speech clear, face symmetrical and CN II-XII grossly intact with no noted focal neuro deficits Psych: Alert and oriented to person, place, time, and situation. Appropriate and pleasant affect. Assessment and Plan of Care: Acute kidney injury on suspected underlying chronic kidney disease Hyperkalemia, resolved Acute systolic CHF exacerbation with EF of 40-45% Severe pulmonary hypertension Diabetic right foot ulcers with superimposed infection, chronic Iron Deficiency Anemia superimposed on Anemia of Chronic Disease Chronic conditions: Hypertension, hyperlipidemia -Cardiology evaluated made medication changes by discontinuation of amlodipine and maximizing carvedilol. Cardiology clearing patient from cardiac perspective recommending patient follow-up outpatient for scheduling of right and left heart cath to further evaluate pulmonary hypertension. -Nephrology evaluated and recommending three-day course of Ferric Sodium followed by starting patient on Aranesp with recommendations for outpatient follow-up for further evaluation of CKD. Patient completed 3 day course of Ferric Sodium. -Discontinued Aldactone and lisinopril secondary to hyperkalemia. -Patient to continue with atorvastatin 40 mg daily, carvedilol 25 mg twice daily, Farxiga 5 mg daily, and Zetia 10 mg daily. -Discussed patient's concerns with call out operator, nephrology recommending patient received additional doses of Bumex later today and likely will plan to transition patient to oral torsemide tomorrow with plans for discharge home. -Wound care and infectious disease following. Patnt ieto continue Zosyn 3.375 g every 8 hours as recommended by infectious disease physician with plan for discharge home on oral antibiotics with Augmentin and ciprofloxacin for treatment of infected ulcer. -Wound culture right foot was reviewed resulting positive for pseudomonas aeruginosa, enterococcus faecalis, artemio albicans, Providencia rettgeri. Data reviewed: -Labs completed and reviewed. BMP revealing improvement of renal function with BUN of 43.0, creatinine 1.9, and GFR of 30 -Vital signs reviewed. Blood pressure 155/77, heart rate 71, respiratory rate 18, temp 98.1F, SpO2 of 94% on room air.. DVT prophylaxis: Lovenox CODE STATUS: Full Code Anticipated discharge place: Home with home care Anticipated discharge date: Tomorrow morning Patient was seen independently by Nurse Pracitioner. This document was prepared using [employer] dictation software. Please allow for errors in furnace process plant operator, while rare they do occur. Jacinto Bentley NP rendered care for this patient independently, reviewed the findings and plan as documented in the note above. I did not physically speak with or examine the patient on this date. Objective - Vital Signs Vital signs: Vital Signs Temp 97.4 F L 04/27/23 11:35 Pulse 71 04/27/23 11:35 Resp 16 04/27/23 11:35 BP 143/75 04/27/23 11:35 Pulse Ox 94 L 04/27/23 11:35 FiO2 Intake & Output 04/26/23 04/27/23 04/27/23 18:59 06:59 18:59 Other: Voiding Method Toilet Toilet Bedside Commode Bedside Commode # Voids 1 3 # Bowel Movements 1 - Labs CBC & Chem 7: 04/26/23 05:57 04/27/23 04:42 Labs: Abnormal Lab Results - Last 24 Hours (Table) 04/26/23 04/26/23 04/27/23 Range/Units 17:40 20:36 04:42 BUN 43.0 H (9.0-27.0) mg/dL Creatinine 1.9 H (0.6-1.5) mg/dL Est GFR (CKD-EPI) 30 L (>=60) BUN/Creatinine Ratio 22.63 H (12.00-20.00) Ratio Glucose 152 H (70-110) mg/dL POC Glucose (mg/dL) 206 H 200 H (70-110) mg/dL Calcium 8.2 L (8.7-10.3) mg/dL 04/27/23 04/27/23 Range/Units 07:05 11:38 BUN (9.0-27.0) mg/dL Creatinine (0.6-1.5) mg/dL Est GFR (CKD-EPI) (>=60) BUN/Creatinine Ratio (12.00-20.00) Ratio Glucose (70-110) mg/dL POC Glucose (mg/dL) 155 H 166 H (70-110) mg/dL Calcium (8.7-10.3) mg/dL
[2023-04-27 17:03] LABS: Glucose,Whole Blood 155 mg/dL (70-110)
[2023-04-27 20:35] LABS: Glucose,Whole Blood 185 mg/dL (70-110)
[2023-04-28 07:24] LABS: Glucose,Whole Blood 133 mg/dL (70-110)
[2023-04-28] MEDS: INSULIN ASPART (NovoLOG) 100 UNIT/ML VIAL SQ SCH ×4 (07:33→20:43)
[2023-04-28 07:58] LABS: HCT 29.2 % (34.0-46.0); HGB 8.8 gm/dL (11.4-16.0); Hypochromasia Marked; MCH 25.9 pg (25.0-35.0); MCHC 30.3 g/dL (31.0-37.0); MCV 85.5 fL (80.0-100.0); Mean Platelet Volume 9.1; Platelet Count 259 k/uL (150-450); RBC 3.42 m/uL (3.80-5.40); RDW 15.4 % (11.5-15.5); WBC 5.3 k/uL (3.8-10.6)
[2023-04-28] MEDS: BUMETANIDE 0.25 MG/ML 10 ML VIAL IV SCH (08:16)
[2023-04-28 08:17] LABS: African American GFR (CKD) 33 (>60 ml/min/1.73 sqM); Anion Gap 12 mmol/L; Blood Urea Nitrogen 39 mg/dL (7-17); Calcium 8.4 mg/dL (8.4-10.2); Carbon Dioxide 23 mmol/L (22-30); Chloride 105 mmol/L (98-107); Glucose 126 mg/dL (74-99); Magnesium 2.1 mg/dL (1.6-2.3); Non-African American GFR(CKD) 28 (>60 ml/min/1.73 sqM); Potassium 4.1 mmol/L (3.5-5.1); Sodium 140 mmol/L (137-145)
[2023-04-28] MEDS: ENOXAPARIN 30 MG/0.3 ML SYRINGE SQ SCH (09:19)
[2023-04-28] MEDS: INSULIN DETEMIR (LEVEMIR) 100 UNIT/ML SYR SQ SCH (09:20)
[2023-04-28] MEDS: EZETIMIBE 10 MG TAB PO SCH (09:20)
[2023-04-28] MEDS: DAPAGLIFLOZIN PROPANEDIOL 5 MG TABLET PO SCH (09:20)
[2023-04-28] MEDS: amLODIPine 5 MG TAB PO SCH (09:20)
[2023-04-28] MEDS: SERTRALINE 50 MG TAB PO SCH (09:20)
[2023-04-28] MEDS: ATORVASTATIN 40 MG TAB PO SCH (09:20)
[2023-04-28] MEDS: MULTIVITAMINS, THERA 1 EACH TAB PO SCH (09:20)
[2023-04-28] MEDS: carvediloL 12.5 MG TAB PO SCH ×2 (09:20→16:51)
[2023-04-28] MEDS: GABAPENTIN 300 MG CAP PO SCH ×4 (09:20→21:10)
[2023-04-28] MEDS: NICOTINE 14MG/24HR PATCH TRANSDERM SCH (09:21)
[2023-04-28] MEDS: PIPERACILLIN-TAZOBACTAM 3.375 GM in SODIUM CHLORIDE 0.9% 100 ML IVPB SCH ×3 (09:21→23:46)
--- NOTE | 2023-04-28 09:47 | P.PN ---
Subjective Progress Note Date: 04/28/23 Hospital course: Patient is a very pleasant 57-year-old with a past medical history of type II DM completed by peripheral neuropathy with chronic nonhealing right foot ulcers, hypertension, and hyperlipidemia. She presented to the emergency department on 04/17/23 was directed by PCP for concerns of fluid overload. Chest x-ray in the emergency room was consistent with fluid overload. EKG revealed sinus rhythm short LA interval a 71 bpm with no other ST/T-wave changes noted as reviewed by me. Laboratory evaluation revealed BUN of 42, creatinine 1.82 (no baseline available for comparison), proBNP 16,800, glucose 147, an unremarkable UA and a negative respiratory viral panel negative. Pt was seen by ID regarding her RLE heel ulcer, and wound cultures returned polymicrobial. She was initially treated with unasyn, then switched to zosyn when cultures returned + for pseudomonas, enterococcus faecalis, artemio, and providencia rettgeri. Bone scan and Foot XR negative for osteomyelitis. Echo showed EF 40-45%, with severe pHTN. Renal function elevating, IV Lasix was discontinued and patient switched to torsemide by cardiology. Renal function continues to elevate with BUN of 48, creatinine 2.52, and GFR of 20. Patient also with hyperkalemia this morning with potassium of 5.2.. Orders placed for consult to nephrology. Aldactone discontinued. Patient given a single dose of calcium gluconate 2 g IVPB and sodium bicarb 1 amp. Hyperkalemia resolved. Patient was evaluated by chemical mixer, she underwent ultrasound of kidneys and bladder which showed no evidence for acute process and ruled out hydronephrosis. Nephrology stating acute kidney injury possibly component of cardiorenal syndrome status post diarrhea but also unable to rule out underlying chronic kidney disease/previous labs are not available for comparison. Net Washer recommended 1-2 days of IV iron and starting patient on Aranesp with outpatient follow-up for CKD. Once cleared by nephrology plan is is for discharge home on Augmentin and ciprofloxacin for treatment of infected ulcer. Physical exam: Pt seen and fully evaluated at the bedside this morning, she denies having any new complaints or concerns at this time. Swelling in lower extremities remains unchanged. Vital signs reviewed and stable. General: Nontoxic, no distress and appears stated age. Derm: Skin warm and dry, normal coloration for ethnicity. Head: Atraumatic, normocephalic and symmetric. Eyes: EOMs intact, no lid lag, and anicteric sclera Mouth: no lip lesions, mucus membranes moist Cardiovascular: regular rate and rhythm with normal S1S2, no murmur, positive posterior tibial pulses bilaterally, and cap refill < 2 seconds. Lungs: Respirations even, regular, and unlabored on room air. Lungs CTA bilaterally, no rhonchi, no rales, no wheezing, and no accessory muscle usage. Abdominal: soft, nontender to palpation, no guarding, no appreciable organomegaly Ext: ROM intact. No gross muscle atrophy, 1+ bilateral lower extremity edema, no contractures Neuro: Speech clear, face symmetrical and CN II-XII grossly intact with no noted focal neuro deficits Psych: Alert and oriented to person, place, time, and situation. Appropriate and pleasant affect. Assessment and Plan of Care: Acute kidney injury on suspected underlying chronic kidney disease Hyperkalemia, resolved Acute systolic CHF exacerbation with EF of 40-45% Severe pulmonary hypertension Diabetic right foot ulcers with superimposed infection, chronic Iron Deficiency Anemia superimposed on Anemia of Chronic Disease Chronic conditions: Hypertension, hyperlipidemia -Cardiology evaluated made medication changes by discontinuation of amlodipine and maximizing carvedilol. Cardiology clearing patient from cardiac perspective recommending patient follow-up outpatient for scheduling of right and left heart cath to further evaluate pulmonary hypertension. -Nephrology following and discussed plan of care. Net Washer recommending discontinuation of Bumex and on placing patient on Lasix infusion along with metolazone. -Orders placed for Lasix infusion at 10 mg (10 mL) per hour along with metolazone 5 mg daily. -Orders placed for transfer to stepdown unit for closer monitoring and Lasix infusion and strict I's and O's. -Discontinued Aldactone and lisinopril secondary to hyperkalemia. -Patient to continue with atorvastatin 40 mg daily, amlodipine 5 mg daily, carvedilol 25 mg twice daily, Farxiga 5 mg daily, and Zetia 10 mg daily. -Wound care and infectious disease following. Patient to continue Zosyn 3.375 g every 8 hours as recommended by infectious disease physician with plan for discharge home on oral antibiotics with Augmentin and ciprofloxacin for treatment of infected ulcer. -Wound culture right foot was reviewed resulting positive for pseudomonas aeruginosa, enterococcus faecalis, artemio albicans, Providencia rettgeri. -Order placed for LUANN hose to improve lower extremity circulation and prevent/improve lower extremity edema. Data reviewed: -Labs completed and reviewed. CBC showing a stable over the big anemia with hemoglobin 8.8. BMP revealing stable but continued elevation of renal function with BUN of 39 and creatinine of 1.93 with GFR of 28. -Vital signs reviewed. Blood pressure elevated this morning at 171/84, heart rate 70, respiratory rate 17, temp 98.1F, SpO2 of 95% on room air. DVT prophylaxis: Lovenox CODE STATUS: Full Code Anticipated discharge place: Home with home care Anticipated discharge date: Tomorrow morning Patient was seen independently by Nurse Pracitioner. This document was prepared using [employer] dictation software. Please allow for errors in digital circuit designer, while rare they do occur. Jacinto Bentley NP rendered care for this patient independently, reviewed the findings and plan as documented in the note above. I did not physically speak with or examine the patient on this date. Objective - Vital Signs Vital signs: Vital Signs Temp 97.7 F 04/28/23 02:00 Pulse 70 04/28/23 02:00 Resp 16 04/28/23 02:00 BP 147/79 04/28/23 02:00 Pulse Ox 90 L 04/28/23 02:00 FiO2 Intake & Output 04/27/23 04/28/23 04/28/23 18:59 06:59 18:59 Other: Voiding Method Toilet Bedside Commode # Voids 3 4 # Bowel Movements 1 - Labs CBC & Chem 7: 04/28/23 07:13 04/28/23 07:13 Labs: Abnormal Lab Results - Last 24 Hours (Table) 04/27/23 04/27/23 04/27/23 Range/Units 04:42 11:38 17:00 BUN 43.0 H (9.0-27.0) mg/dL Creatinine 1.9 H (0.6-1.5) mg/dL Est GFR (CKD-EPI) 30 L (>=60) BUN/Creatinine Ratio 22.63 H (12.00-20.00) Ratio Glucose 152 H (70-110) mg/dL POC Glucose (mg/dL) 166 H 155 H (70-110) mg/dL Calcium 8.2 L (8.7-10.3) mg/dL 04/27/23 04/28/23 Range/Units 20:33 07:23 BUN (9.0-27.0) mg/dL Creatinine (0.6-1.5) mg/dL Est GFR (CKD-EPI) (>=60) BUN/Creatinine Ratio (12.00-20.00) Ratio Glucose (70-110) mg/dL POC Glucose (mg/dL) 185 H 133 H (70-110) mg/dL Calcium (8.7-10.3) mg/dL
--- NOTE | 2023-04-28 10:54 | P.PN ---
Subjective Patient is seen in follow-up for acute kidney injury. Creatinine peaked at 2.5 to this admission and is stable at 1.9 today. On IV Bumex and Farxiga. Has been voiding. Remains edematous. Vital signs are stable. General: No acute distress. HEENT: Head exam is unremarkable. LUNGS: No audible rhonchi or wheezes. HEART: Rate and Rhythm are regular. ABDOMEN: Nontender. EXTREMITITES: 2+ edema. Right foot wrapped. No drainage. Objective - Vital Signs Vital signs: Vital Signs Temp 98.1 F 04/28/23 07:20 Pulse 70 04/28/23 07:20 Resp 17 04/28/23 07:20 BP 171/84 04/28/23 07:20 Pulse Ox 95 04/28/23 07:20 FiO2 Intake & Output 04/27/23 04/28/23 04/28/23 18:59 06:59 18:59 Intake Total 222 Balance 222 Intake: Oral 222 Other: Voiding Method Toilet Toilet Bedside Commode Bedside Commode # Voids 3 4 # Bowel Movements 1 - Labs CBC & Chem 7: 04/28/23 07:13 04/28/23 07:13 Labs: Abnormal Lab Results - Last 24 Hours (Table) 04/27/23 04/27/23 04/27/23 Range/Units 11:38 17:00 20:33 RBC (3.80-5.40) m/uL Hgb (11.4-16.0) gm/dL Hct (34.0-46.0) % MCHC (31.0-37.0) g/dL BUN (7-17) mg/dL Creatinine (0.52-1.04) mg/dL Glucose (74-99) mg/dL POC Glucose (mg/dL) 166 H 155 H 185 H (70-110) mg/dL 04/28/23 04/28/23 04/28/23 Range/Units 07:13 07:13 07:23 RBC 3.42 L (3.80-5.40) m/uL Hgb 8.8 L (11.4-16.0) gm/dL Hct 29.2 L (34.0-46.0) % MCHC 30.3 L (31.0-37.0) g/dL BUN 39 H (7-17) mg/dL Creatinine 1.93 H (0.52-1.04) mg/dL Glucose 126 H (74-99) mg/dL POC Glucose (mg/dL) 133 H (70-110) mg/dL Assessment and Plan Plan: Assessment: 1. Acute kidney injury secondary to ATN secondary to cardiorenal syndrome. No hydronephrosis noted on kidney ultrasound. Creatinine peaked at 2.5 to this admission and is stable at 1.9 today. Unknown baseline renal function. UA reveals 1+ protein. Possibly underlying diabetic kidney disease. Further workup outpatient. 2. Acute on chronic systolic CHF with ejection fraction of 40-45% with severe pulmonary hypertension. 3. Volume overload. 4. Right lower extremity cellulitis on antibiotics. 5. Diabetes mellitus. 6. Anemia. Iron deficiency noted. Likely component of underlying chronic kidney disease. s/p IV iron. Also on Aranesp. 7. Benign hypertension. Component of hypervolemia. Plan: Stop IV Bumex. Start Lasix drip at 10 mL an hour. Metolazone 5 mg once daily. Maintain Farxiga. 1500 mL fluid restriction. Strict I's and O's. Amlodipine added 04/26/2023. Add when necessary hydralazine for systolic blood pressure above 160. Avoid nephrotoxins. Discussed with primary team. I advised patient to maintain low-salt diet and fluid restriction of less than 50 ounces per day upon discharge. Patient also advised to monitor her weight closely at home and to notify physician if develops worsening edema or gains more than 3 pounds in 1 week duration. Repeat BMP and magnesium level 2-3 days postdischarge. Follow up outpatient in 1 week.
[2023-04-28 11:27] LABS: Glucose,Whole Blood 357 mg/dL (70-110)
[2023-04-28] MEDS: metOLazone 5 MG TAB PO SCH (11:27)
[2023-04-28 12:15] LABS: Glucose,Whole Blood 381 mg/dL (70-110)
[2023-04-28] MEDS: FUROSEMIDE 100 MG in SODIUM CHLORIDE 0.9% 90 ML IV SCH ×2 (12:49→21:10)
--- NOTE | 2023-04-28 14:58 | P.PN ---
Subjective Progress Note Date: 04/28/23 Principal diagnosis: Reason for follow-up his right heel diabetic foot infection and wound Patient is a 57-year-old female with a past medical history significant for diabetes mellitus hypertension hyperlipidemia patient did have a history of chronic nonhealing wound to the right heel area, patient was sent to the ER for nonhealing of the wound concerning for possible deep infection. On today's evaluation that is ,04/28/2023, patient has been transferred to the stepdown unit for close monitoring and has been started on Lasix infusion, patient denies having any fever or any chills patient denies having any chest pain or cough currently on 95% on room air no nausea vomiting abdominal pain or diarrhea. Patient did have white count of 5.3, creatinine is 1.93 Objective - Vital Signs Vital signs: Vital Signs Temp 98.1 F 04/28/23 07:20 Pulse 70 04/28/23 07:20 Resp 17 04/28/23 07:20 BP 171/84 04/28/23 07:20 Pulse Ox 95 04/28/23 07:20 FiO2 Intake & Output 04/27/23 04/28/23 04/28/23 18:59 06:59 18:59 Intake Total 222 Balance 222 Intake: Oral 222 Other: Voiding Method Toilet Toilet Bedside Commode Bedside Commode # Voids 3 4 # Bowel Movements 1 - Exam GENERAL DESCRIPTION: Middle-aged female lying in bed in no distress RESPIRATORY SYSTEM: Unlabored breathing , decreased breath sounds at bases HEART: S1 S2 regular rate and rhythm , ABDOMEN: Soft , no tenderness EXTREMITIES: Right heel wound is currently dressed - Labs CBC & Chem 7: 04/28/23 07:13 04/28/23 07:13 Labs: Abnormal Lab Results - Last 24 Hours (Table) 04/27/23 04/27/23 04/28/23 Range/Units 17:00 20:33 07:13 RBC 3.42 L (3.80-5.40) m/uL Hgb 8.8 L (11.4-16.0) gm/dL Hct 29.2 L (34.0-46.0) % MCHC 30.3 L (31.0-37.0) g/dL BUN (7-17) mg/dL Creatinine (0.52-1.04) mg/dL Glucose (74-99) mg/dL POC Glucose (mg/dL) 155 H 185 H (70-110) mg/dL 04/28/23 04/28/23 04/28/23 Range/Units 07:13 07:23 11:24 RBC (3.80-5.40) m/uL Hgb (11.4-16.0) gm/dL Hct (34.0-46.0) % MCHC (31.0-37.0) g/dL BUN 39 H (7-17) mg/dL Creatinine 1.93 H (0.52-1.04) mg/dL Glucose 126 H (74-99) mg/dL POC Glucose (mg/dL) 133 H 357 H (70-110) mg/dL 04/28/23 Range/Units 12:14 RBC (3.80-5.40) m/uL Hgb (11.4-16.0) gm/dL Hct (34.0-46.0) % MCHC (31.0-37.0) g/dL BUN (7-17) mg/dL Creatinine (0.52-1.04) mg/dL Glucose (74-99) mg/dL POC Glucose (mg/dL) 381 H (70-110) mg/dL Assessment and Plan (1) Cellulitis Current Visit: Yes Status: Acute Code(s): L03.90 - CELLULITIS, UNSPECIFIED SNOMED Code(s): 412062667 (2) Pressure ulcer of right heel, stage 3 Current Visit: Yes Status: Acute Code(s): L89.613 - PRESSURE ULCER OF RIGHT HEEL, STAGE 3 SNOMED Code(s): 49289777784930 (3) Type 2 diabetes mellitus with foot ulcer Current Visit: Yes Status: Acute Code(s): E11.621 - TYPE 2 DIABETES MELLITUS WITH FOOT ULCER; L97.509 - NON-PRESSURE CHRONIC ULCER OTH PRT UNSP FOOT W UNSP SEVERITY SNOMED Code(s): 498185188 Plan: 1patient presented to hospital with a chronic nonhealing wound to the right heel area which apparently has been there for more than a month failing outpatient oral local treatment, did not mention she received any antibiotic therapy we will need to cover for the polymicrobial ananya usually associated with diabetic foot infection 2 x-ray did not show any bony destruction and the bonescan was negative for osteomyelitis,local culture currently growing Pseudomonas aeruginosa Enterococcus and procidentia. 3patient noticed to have slight worsening of the kidney function , For the patient has been evaluated by neurology and the patient creatinine is improving. 4patient to continue with the Zosyn for the right heel diabetic foot ulcer transition to oral antibiotics on discharge and will monitor clinical course closely Dictation was produced using [employer] dictation software. please excuse any grammatical, word or spelling errors. Time with Patient: Less than 30
[2023-04-28 20:43] LABS: Glucose,Whole Blood 74 mg/dL (70-110)
[2023-04-28] MEDS: hydrALAZINE HCL 20 MG/ML 1 ML VIAL IVP PRN (21:11)
[2023-04-28 21:24] LABS: Glucose,Whole Blood 80 mg/dL (70-110)
[2023-04-28 23:38] LABS: Glucose,Whole Blood 51 mg/dL (70-110)
[2023-04-29 00:14] LABS: Glucose,Whole Blood 133 mg/dL (70-110)
[2023-04-29 01:29] LABS: African American GFR (CKD) 34 (>60 ml/min/1.73 sqM); Anion Gap 8 mmol/L; Blood Urea Nitrogen 40 mg/dL (7-17); Calcium 8.4 mg/dL (8.4-10.2); Carbon Dioxide 25 mmol/L (22-30); Chloride 104 mmol/L (98-107); Glucose 114 mg/dL (74-99); Non-African American GFR(CKD) 29 (>60 ml/min/1.73 sqM); Potassium 3.8 mmol/L (3.5-5.1); Sodium 137 mmol/L (137-145)
[2023-04-29] MEDS: FUROSEMIDE 100 MG in SODIUM CHLORIDE 0.9% 90 ML IV SCH ×3 (05:19→20:37)
[2023-04-29 05:54] LABS: Glucose,Whole Blood 122 mg/dL (70-110)
[2023-04-29] MEDS: INSULIN ASPART (NovoLOG) 100 UNIT/ML VIAL SQ SCH ×4 (06:03→20:35)
[2023-04-29] MEDS: NICOTINE 14MG/24HR PATCH TRANSDERM SCH (08:14)
[2023-04-29] MEDS: metOLazone 5 MG TAB PO SCH (08:15)
[2023-04-29] MEDS: ENOXAPARIN 30 MG/0.3 ML SYRINGE SQ SCH (08:15)
[2023-04-29] MEDS: carvediloL 12.5 MG TAB PO SCH ×2 (08:15→16:45)
[2023-04-29] MEDS: GABAPENTIN 300 MG CAP PO SCH ×4 (08:15→20:46)
[2023-04-29] MEDS: PIPERACILLIN-TAZOBACTAM 3.375 GM in SODIUM CHLORIDE 0.9% 100 ML IVPB SCH ×2 (08:15→16:45)
[2023-04-29] MEDS: DAPAGLIFLOZIN PROPANEDIOL 5 MG TABLET PO SCH (08:15)
[2023-04-29] MEDS: SERTRALINE 50 MG TAB PO SCH (08:15)
[2023-04-29] MEDS: MULTIVITAMINS, THERA 1 EACH TAB PO SCH (08:15)
[2023-04-29] MEDS: amLODIPine 5 MG TAB PO SCH (08:15)
[2023-04-29] MEDS: EZETIMIBE 10 MG TAB PO SCH (08:15)
[2023-04-29] MEDS: ATORVASTATIN 40 MG TAB PO SCH (08:15)
[2023-04-29 08:29] LABS: ALT 26 U/L (4-34); AST 20 U/L (14-36); African American GFR (CKD) 31 (>60 ml/min/1.73 sqM); Albumin 3.2 g/dL (3.5-5.0); Alkaline Phosphatase 166 U/L (38-126); Anion Gap 10 mmol/L; Blood Urea Nitrogen 40 mg/dL (7-17); Calcium 8.6 mg/dL (8.4-10.2); Carbon Dioxide 28 mmol/L (22-30); Chloride 102 mmol/L (98-107); Glucose 105 mg/dL (74-99); Magnesium 2.2 mg/dL (1.6-2.3); Non-African American GFR(CKD) 27 (>60 ml/min/1.73 sqM); Potassium 3.7 mmol/L (3.5-5.1); Sodium 140 mmol/L (137-145); Total Bilirubin 0.4 mg/dL (0.2-1.3); Total Protein 6.6 g/dL (6.3-8.2)
[2023-04-29] MEDS ORDERED: POTASSIUM CHLORIDE ER 20 MEQ TAB.ER PO STA (09:37)
--- NOTE | 2023-04-29 10:28 | P.PN ---
Subjective Patient is seen in follow-up for acute kidney injury. Renal function fairly stable. On Lasix drip. Also on metolazone and farxiga. Has been voiding. Edema little improved. Vital signs are stable. General: No acute distress. HEENT: Head exam is unremarkable. LUNGS: No audible rhonchi or wheezes. HEART: Rate and Rhythm are regular. ABDOMEN: Nontender. EXTREMITITES: 2+ edema. Objective - Vital Signs Vital signs: Vital Signs Temp 97.8 F 04/29/23 08:00 Pulse 74 04/29/23 08:00 Resp 16 04/29/23 08:00 BP 147/83 04/29/23 08:00 Pulse Ox 94 L 04/29/23 08:00 FiO2 Intake & Output 04/28/23 04/29/23 04/29/23 18:59 06:59 18:59 Intake Total 340 705.0 480 Output Total 400 800 Balance -60 -95.0 480 Weight 73.9 kg Intake: Intake, IV Titration 165.0 Amount Furosemide 100 mg In 165.0 Sodium Chloride 0.9% 90 ml @ 10 MG/HR 10 mls/hr IV .Q10H [facility] Rx#: [id number] Oral 340 540 480 Output: Urine 400 800 Other: Voiding Method Toilet Toilet Bedside Commode Bedside Commode - Labs CBC & Chem 7: 04/28/23 07:13 04/29/23 07:43 Labs: Abnormal Lab Results - Last 24 Hours (Table) 04/28/23 04/28/23 04/28/23 Range/Units 11:24 12:14 23:37 BUN (7-17) mg/dL Creatinine (0.52-1.04) mg/dL Glucose (74-99) mg/dL POC Glucose (mg/dL) 357 H 381 H 51 L (70-110) mg/dL Alkaline Phosphatase (38-126) U/L Albumin (3.5-5.0) g/dL 04/29/23 04/29/23 04/29/23 Range/Units 00:12 00:23 05:52 BUN 40 H (7-17) mg/dL Creatinine 1.87 H (0.52-1.04) mg/dL Glucose 114 H (74-99) mg/dL POC Glucose (mg/dL) 133 H 122 H (70-110) mg/dL Alkaline Phosphatase (38-126) U/L Albumin (3.5-5.0) g/dL 04/29/23 Range/Units 07:43 BUN 40 H (7-17) mg/dL Creatinine 1.99 H (0.52-1.04) mg/dL Glucose 105 H (74-99) mg/dL POC Glucose (mg/dL) (70-110) mg/dL Alkaline Phosphatase 166 H (38-126) U/L Albumin 3.2 L (3.5-5.0) g/dL Assessment and Plan Plan: Assessment: 1. Acute kidney injury secondary to ATN secondary to cardiorenal syndrome. No hydronephrosis noted on kidney ultrasound. Creatinine peaked at 2.5 to this admission and is stable at 1.99 today. Unknown baseline renal function. UA reveals 1+ protein. Possibly underlying diabetic kidney disease. Further workup outpatient. 2. Acute on chronic systolic CHF with ejection fraction of 40-45% with severe pulmonary hypertension. 3. Volume overload. 4. Right lower extremity cellulitis on antibiotics. 5. Diabetes mellitus. 6. Anemia. Iron deficiency noted. Likely component of underlying chronic kidney disease. s/p IV iron. Also on Aranesp. 7. Benign hypertension. Component of hypervolemia. Stable. 8. Hypokalemia from diuresis. Plan: Increase Lasix drip to 15 mL an hour. Maintain metolazone 5 mg once daily. Maintain Farxiga. Replace potassium. 1500 mL fluid restriction. Strict I's and O's. Amlodipine added 04/26/2023. Avoid nephrotoxins. Discussed with primary team. I advised patient to maintain low-salt diet and fluid restriction of less than 50 ounces per day upon discharge. Patient also advised to monitor her weight closely at home and to notify physi nelly if develops worsening edema or gains more than 3 pounds in 1 week duration. Repeat BMP and magnesium level 2-3 days postdischarge. Follow up outpatient in 1 week.
--- NOTE | 2023-04-29 11:15 | P.PN ---
Subjective Progress Note Date: 04/29/23 Hospital course: Patient is a very pleasant 57-year-old with a past medical history of type II DM completed by peripheral neuropathy with chronic nonhealing right foot ulcers, hypertension, and hyperlipidemia. She presented to the emergency department on 04/17/23 was directed by PCP for concerns of fluid overload. Chest x-ray in the emergency room was consistent with fluid overload. EKG revealed sinus rhythm short ID interval a 71 bpm with no other ST/T-wave changes noted as reviewed by me. Laboratory evaluation revealed BUN of 42, creatinine 1.82 (no baseline available for comparison), proBNP 16,800, glucose 147, an unremarkable UA and a negative respiratory viral panel negative. Pt was seen by ID regarding her RLE heel ulcer, and wound cultures returned polymicrobial. She was initially treated with unasyn, then switched to zosyn when cultures returned + for pseudomonas, enterococcus faecalis, artemio, and providencia rettgeri. Bone scan and Foot XR negative for osteomyelitis. Echo showed EF 40-45%, with severe pHTN. Renal function elevating, IV Lasix was discontinued and patient switched to torsemide by cardiology. Renal function continues to elevate with BUN of 48, creatinine 2.52, and GFR of 20. Patient also with hyperkalemia this morning with potassium of 5.2.. Orders placed for consult to nephrology. Aldactone discontinued. Patient given a single dose of calcium gluconate 2 g IVPB and sodium bicarb 1 amp. Hyperkalemia resolved. Patient was evaluated by medical biller/coder, she underwent ultrasound of kidneys and bladder which showed no evidence for acute process and ruled out hydronephrosis. Nephrology stating acute kidney injury possibly component of cardiorenal syndrome status post diarrhea but also unable to rule out underlying chronic kidney disease/previous labs are not available for comparison. Senior Software Tester recommended 1-2 days of IV iron and starting patient on Aranesp with outpatient follow-up for CKD. Once cleared by nephrology plan is is for discharge home on Augmentin and ciprofloxacin for treatment of infected ulcer. Physical exam: Pt seen and fully evaluated at the bedside this morning, she denies having any new complaints or concerns at this time. Swelling in lower extremities remains unchanged. Vital signs reviewed and stable. General: Nontoxic, no distress and appears stated age. Derm: Skin warm and dry, normal coloration for ethnicity. Head: Atraumatic, normocephalic and symmetric. Eyes: EOMs intact, no lid lag, and anicteric sclera Mouth: no lip lesions, mucus membranes moist Cardiovascular: regular rate and rhythm with normal S1S2, no murmur, positive posterior tibial pulses bilaterally, and cap refill < 2 seconds. Lungs: Respirations even, regular, and unlabored on room air. Lungs CTA bilaterally, no rhonchi, no rales, no wheezing, and no accessory muscle usage. Abdominal: soft, nontender to palpation, no guarding, no appreciable organomegaly Ext: ROM intact. No gross muscle atrophy, 1+ bilateral lower extremity edema, no contractures Neuro: Speech clear, face symmetrical and CN II-XII grossly intact with no noted focal neuro deficits Psych: Alert and oriented to person, place, time, and situation. Appropriate and pleasant affect. Assessment and Plan of Care: Acute kidney injury on suspected underlying chronic kidney disease Hyperkalemia, resolved Acute systolic CHF exacerbation with EF of 40-45% Severe pulmonary hypertension Diabetic right foot ulcers with superimposed infection, chronic Iron Deficiency Anemia superimposed on Anemia of Chronic Disease Chronic conditions: Hypertension, hyperlipidemia -Cardiology evaluated and made medication changes by discontinuation of amlodipine and maximizing carvedilol. 04/21/23 Cardiology clearing patient from cardiac perspective recommending patient follow-up outpatient for scheduling of right and left heart cath to further evaluate pulmonary hypertension. -Nephrology following and discussed plan of care. Senior Software Tester recommending increasing Lasix infusion to 15 mg/hr -Orders placed for Lasix infusion at 10 mg (10 mL) per hour along with metolazone 5 mg daily. -Continue close monitoring of renal function and electrolytes while on diuretic infusion. -Continue strict I's and O's . -Discontinued home Aldactone and lisinopril secondary to hyperkalemia. -Patient to continue with metolazone 5 mg daily, atorvastatin 40 mg daily, amlodipine 5 mg daily, carvedilol 25 mg twice daily, Farxiga 5 mg daily, and Zetia 10 mg daily. -Wound care and infectious disease following. Patient to continue Zosyn 3.375 g every 8 hours as recommended by infectious disease physician with plan for discharge home on oral antibiotics with Augmentin and ciprofloxacin for treatment of infected ulcer. -Wound culture right foot was reviewed resulting positive for pseudomonas aeruginosa, enterococcus faecalis, artemio albicans, Providencia rettgeri. -Order placed for LUANN hose to improve lower extremity circulation and prevent/improve lower extremity edema. Data reviewed: -Labs completed and reviewed. BMP revealing persistently elevated but stable renal function with BUN of 40, creatinine 1.99, and GFR of 27. Potassium normal findings at 3.7 and magnesium 2.2. Liver profile showing persistently elevated alkaline phosphatase 166 otherwise normal findings. -Vital signs reviewed. Blood pressure 147/83, heart rate 74, respiratory rate 16, temp 97.8F, SpO2 of 94% on room air. -Documented urinary output 1200 mL over the past 24 hours. DVT prophylaxis: Lovenox CODE STATUS: Full Code Anticipated discharge place: Home with home care Anticipated discharge date: Tomorrow morning Patient was seen independently by Nurse Pracitioner. This document was prepared using [employer] dictation software. Please allow for errors in console assembler, while rare they do occur. Jacinto Bentley NP rendered care for this patient independently, reviewed the findings and plan as documented in the note above. I did not physically speak with or examine the patient on this date. Objective - Vital Signs Vital signs: Vital Signs Temp 97.5 F L 04/29/23 04:00 Pulse 60 04/29/23 04:00 Resp 18 04/29/23 04:00 BP 151/79 04/29/23 04:00 Pulse Ox 95 04/29/23 04:00 FiO2 Intake & Output 04/28/23 04/29/23 04/29/23 18:59 06:59 18:59 Intake Total 340 705.0 Output Total 400 800 Balance -60 -95.0 Weight 73.9 kg Intake: Intake, IV Titration 165.0 Amount Furosemide 100 mg In 165.0 Sodium Chloride 0.9% 90 ml @ 10 MG/HR 10 mls/hr IV .Q10H [facility] Rx#: [id number] Oral 340 540 Output: Urine 400 800 Other: Voiding Method Toilet Toilet Bedside Commode Bedside Commode - Labs CBC & Chem 7: 04/28/23 07:13 04/29/23 07:43 Labs: Abnormal Lab Results - Last 24 Hours (Table) 04/28/23 04/28/23 04/28/23 Range/Units 07:13 07:13 11:24 RBC 3.42 L (3.80-5.40) m/uL Hgb 8.8 L (11.4-16.0) gm/dL Hct 29.2 L (34.0-46.0) % MCHC 30.3 L (31.0-37.0) g/dL BUN 39 H (7-17) mg/dL Creatinine 1.93 H (0.52-1.04) mg/dL Glucose 126 H (74-99) mg/dL POC Glucose (mg/dL) 357 H (70-110) mg/dL 04/28/23 04/28/23 04/29/23 Range/Units 12:14 23:37 00:12 RBC (3.80-5.40) m/uL Hgb (11.4-16.0) gm/dL Hct (34.0-46.0) % MCHC (31.0-37.0) g/dL BUN (7-17) mg/dL Creatinine (0.52-1.04) mg/dL Glucose (74-99) mg/dL POC Glucose (mg/dL) 381 H 51 L 133 H (70-110) mg/dL 04/29/23 04/29/23 Range/Units 00:23 05:52 RBC (3.80-5.40) m/uL Hgb (11.4-16.0) gm/dL Hct (34.0-46.0) % MCHC (31.0-37.0) g/dL BUN 40 H (7-17) mg/dL Creatinine 1.87 H (0.52-1.04) mg/dL Glucose 114 H (74-99) mg/dL POC Glucose (mg/dL) 122 H (70-110) mg/dL
[2023-04-29 11:32] LABS: Glucose,Whole Blood 255 mg/dL (70-110)
[2023-04-29] MEDS: INSULIN DETEMIR (LEVEMIR) 100 UNIT/ML SYR SQ SCH (12:24)
--- NOTE | 2023-04-29 15:21 | P.PN ---
Subjective Progress Note Date: 04/29/23 Principal diagnosis: Reason for follow-up his right heel diabetic foot infection and wound Patient is a 57-year-old female with a past medical history significant for diabetes mellitus hypertension hyperlipidemia patient did have a history of chronic nonhealing wound to the right heel area, patient was sent to the ER for nonhealing of the wound concerning for possible deep infection. On today's evaluation that is 04/29/2023 the patient continues to be afebrile, the patient is breathing comfortably on room air without the need for supplemental oxygen patient denies chest pain, shortness of breath or cough, the patient denies having any nausea no vomiting no abdominal pain and no diarrhea, denies pain to the right heel wound area Patient white count is 5.3 as of 04/28/2023 creatinine is 1.99 Objective - Vital Signs Vital signs: Vital Signs Temp 98.1 F 04/29/23 12:00 Pulse 72 04/29/23 12:00 Resp 18 04/29/23 12:00 BP 150/80 04/29/23 12:00 Pulse Ox 94 L 04/29/23 12:00 FiO2 Intake & Output 04/28/23 04/29/23 04/29/23 18:59 06:59 18:59 Intake Total 340 705.0 598 Output Total 400 800 Balance -60 -95.0 598 Weight 73.9 kg Intake: Intake, IV Titration 165.0 Amount Furosemide 100 mg In 165.0 Sodium Chloride 0.9% 90 ml @ 10 MG/HR 10 mls/hr IV .Q10H [facility] Rx#: [id number] Oral 340 540 598 Output: Urine 400 800 Other: Voiding Method Toilet Toilet Bedside Commode Bedside Commode - Exam GENERAL DESCRIPTION: Middle-aged female lying in bed in no distress RESPIRATORY SYSTEM: Unlabored breathing , decreased breath sounds at bases HEART: S1 S2 regular rate and rhythm , ABDOMEN: Soft , no tenderness EXTREMITIES: Right heel wound is currently dressed - Labs CBC & Chem 7: 04/28/23 07:13 04/29/23 07:43 Labs: Abnormal Lab Results - Last 24 Hours (Table) 04/28/23 04/29/23 04/29/23 Range/Units 23:37 00:12 00:23 BUN 40 H (7-17) mg/dL Creatinine 1.87 H (0.52-1.04) mg/dL Glucose 114 H (74-99) mg/dL POC Glucose (mg/dL) 51 L 133 H (70-110) mg/dL Alkaline Phosphatase (38-126) U/L Albumin (3.5-5.0) g/dL 04/29/23 04/29/23 04/29/23 Range/Units 05:52 07:43 11:31 BUN 40 H (7-17) mg/dL Creatinine 1.99 H (0.52-1.04) mg/dL Glucose 105 H (74-99) mg/dL POC Glucose (mg/dL) 122 H 255 H (70-110) mg/dL Alkaline Phosphatase 166 H (38-126) U/L Albumin 3.2 L (3.5-5.0) g/dL Assessment and Plan (1) Cellulitis Current Visit: Yes Status: Acute Code(s): L03.90 - CELLULITIS, UNSPECIFIED SNOMED Code(s): 392506053 (2) Pressure ulcer of right heel, stage 3 Current Visit: Yes Status: Acute Code(s): L89.613 - PRESSURE ULCER OF RIGHT HEEL, STAGE 3 SNOMED Code(s): 44522711615523 (3) Type 2 diabetes mellitus with foot ulcer Current Visit: Yes Status: Acute Code(s): E11.621 - TYPE 2 DIABETES MELLITUS WITH FOOT ULCER; L97.509 - NON-PRESSURE CHRONIC ULCER OTH PRT UNSP FOOT W UNSP SEVERITY SNOMED Code(s): 770565992 Plan: 1patient presented to hospital with a chronic nonhealing wound to the right heel area which apparently has been there for more than a month failing outpatient oral local treatment, did not mention she received any antibiotic therapy we will need to cover for the polymicrobial ananya usually associated with diabetic foot infection 2 x-ray did not show any bony destruction and the bonescan was negative for osteomyelitis,local culture currently growing Pseudomonas aeruginosa Enterococcus and procidentia. 3patient is currently being monitored by nephrology for underlying renal insufficiency getting IV Lasix kidney function slightly improved. 4patient to continue with Zosyn for the right heel diabetic foot ulcer local wound care with Aquacel silver dressing and monitor clinical course closely Dictation was produced using [employer] software. please excuse any grammatical, word or spelling errors. Time with Patient: Less than 30
[2023-04-29 16:08] LABS: Glucose,Whole Blood 314 mg/dL (70-110)
[2023-04-29 20:14] LABS: Glucose,Whole Blood 134 mg/dL (70-110)
[2023-04-29 23:42] LABS: Glucose,Whole Blood 127 mg/dL (70-110)
[2023-04-30] MEDS: PIPERACILLIN-TAZOBACTAM 3.375 GM in SODIUM CHLORIDE 0.9% 100 ML IVPB SCH ×4 (00:13→22:57)
[2023-04-30] MEDS: FUROSEMIDE 100 MG in SODIUM CHLORIDE 0.9% 90 ML IV SCH ×4 (02:49→22:59)
[2023-04-30] MEDS: ONDANSETRON 4 MG/2 ML VIAL IVP PRN (05:12)
[2023-04-30 05:56] LABS: Glucose,Whole Blood 112 mg/dL (70-110)
[2023-04-30] MEDS: INSULIN ASPART (NovoLOG) 100 UNIT/ML VIAL SQ SCH ×4 (06:01→20:41)
[2023-04-30] MEDS: INSULIN DETEMIR (LEVEMIR) 100 UNIT/ML SYR SQ SCH (07:16)
[2023-04-30 07:57] LABS: African American GFR (CKD) 30 (>60 ml/min/1.73 sqM); Albumin 2.9 g/dL (3.5-5.0); Anion Gap 11 mmol/L; Blood Urea Nitrogen 42 mg/dL (7-17); Calcium 8.4 mg/dL (8.4-10.2); Carbon Dioxide 29 mmol/L (22-30); Chloride 100 mmol/L (98-107); Glucose 102 mg/dL (74-99); Magnesium 2.1 mg/dL (1.6-2.3); Non-African American GFR(CKD) 26 (>60 ml/min/1.73 sqM); Sodium 140 mmol/L (137-145)
[2023-04-30] MEDS: ATORVASTATIN 40 MG TAB PO SCH (09:02)
[2023-04-30] MEDS: carvediloL 12.5 MG TAB PO SCH ×2 (09:02→17:02)
[2023-04-30] MEDS: metOLazone 5 MG TAB PO SCH (09:02)
[2023-04-30] MEDS: DAPAGLIFLOZIN PROPANEDIOL 5 MG TABLET PO SCH (09:02)
[2023-04-30] MEDS: ENOXAPARIN 30 MG/0.3 ML SYRINGE SQ SCH (09:02)
[2023-04-30] MEDS: amLODIPine 5 MG TAB PO SCH (09:02)
[2023-04-30] MEDS: EZETIMIBE 10 MG TAB PO SCH (09:03)
[2023-04-30] MEDS: GABAPENTIN 300 MG CAP PO SCH ×4 (09:03→20:40)
[2023-04-30] MEDS: SERTRALINE 50 MG TAB PO SCH (09:03)
[2023-04-30] MEDS: MULTIVITAMINS, THERA 1 EACH TAB PO SCH (09:03)
--- NOTE | 2023-04-30 10:15 | P.PN ---
Subjective Patient is seen in follow-up for acute kidney injury. Renal function fairly stable. On Lasix drip. Also on metolazone and farxiga. Has been voiding. Edema improving. Urine output 800 mL so far this morning. Vital signs are stable. General: No acute distress. HEENT: Head exam is unremarkable. LUNGS: No audible rhonchi or wheezes. HEART: Rate and Rhythm are regular. ABDOMEN: Nontender. EXTREMITITES: 1+ edema. Objective - Vital Signs Vital signs: Vital Signs Temp 98.0 F 04/30/23 09:00 Pulse 75 04/30/23 09:00 Resp 16 04/30/23 09:00 BP 148/76 04/30/23 09:00 Pulse Ox 98 04/30/23 09:00 FiO2 Intake & Output 04/29/23 04/30/23 04/30/23 18:59 06:59 18:59 Intake Total 1178 733 480 Output Total 700 800 Balance 1178 33 -320 Weight 71.5 kg Intake: Intake, IV Titration 100 193 Amount Furosemide 100 mg In 100 93 Sodium Chloride 0.9% 90 ml @ 15 MG/HR 15 mls/hr IV .Q6H40M [facility] Rx#: [id number] Piperacillin-Tazobactam 3 100 .375 gm In Sodium Chloride 0.9% 100 ml @ 25 mls/hr IVPB Q8HR [facility] Rx# :[id number] Oral 1078 540 480 Output: Urine 700 800 Other: Voiding Method Toilet Bedside Commode # Voids 5 - Labs CBC & Chem 7: 04/28/23 07:13 04/30/23 06:56 Labs: Abnormal Lab Results - Last 24 Hours (Table) 04/29/23 04/29/23 04/29/23 Range/Units 11:31 16:06 20:12 BUN (7-17) mg/dL Creatinine (0.52-1.04) mg/dL Glucose (74-99) mg/dL POC Glucose (mg/dL) 255 H 314 H 134 H (70-110) mg/dL Albumin (3.5-5.0) g/dL 04/29/23 04/30/23 04/30/23 Range/Units 23:41 05:54 06:56 BUN 42 H (7-17) mg/dL Creatinine 2.08 H (0.52-1.04) mg/dL Glucose 102 H (74-99) mg/dL POC Glucose (mg/dL) 127 H 112 H (70-110) mg/dL Albumin 2.9 L (3.5-5.0) g/dL Assessment and Plan Plan: Assessment: 1. Acute kidney injury secondary to ATN secondary to cardiorenal syndrome. No hydronephrosis noted on kidney ultrasound. Creatinine peaked at 2.5 to this admission and is stable at 2.98 today. Unknown baseline renal function. UA reveals 1+ protein. Possibly underlying diabetic kidney disease. Further workup outpatient. 2. Acute on chronic systolic CHF with ejection fraction of 40-45% with severe pulmonary hypertension. 3. Volume overload. Starting to improve with diuresis. 4. Right lower extremity cellulitis on antibiotics. 5. Diabetes mellitus. 6. Anemia. Iron deficiency noted. Likely component of underlying chronic kidney disease. s/p IV iron. Also on Aranesp. 7. Benign hypertension. Component of hypervolemia. Stable. 8. Hypokalemia from diuresis. Replaced. Better. Plan: Maintain Lasix drip at 15 mL an hour. Maintain metolazone 5 mg once daily. Maintain Farxiga. Replace potassium as needed. 1500 mL fluid restriction. Strict I's and O's. Amlodipine added 04/26/2023. Avoid nephrotoxins. Discussed with primary team. I advised patient to maintain low-salt diet and fluid restriction of less than 50 ounces per day upon discharge. Patient also advised to monitor her weight closely at home and to notify physician if develops worsening edema or gains more than 3 pounds in 1 week duration. Repeat BMP and magnesium level 2-3 days postdischarge. Follow up outpatient in 1 week.
[2023-04-30 11:51] LABS: Glucose,Whole Blood 106 mg/dL (70-110)
--- NOTE | 2023-04-30 12:44 | P.PN ---
Subjective Progress Note Date: 04/30/23 Principal diagnosis: Reason for follow-up his right heel diabetic foot infection and wound Patient is a 57-year-old female with a past medical history significant for diabetes mellitus hypertension hyperlipidemia patient did have a history of chronic nonhealing wound to the right heel area, patient was sent to the ER for nonhealing of the wound concerning for possible deep infection. On today's evaluation that is 04/30/2023 patient remains to be afebrile, the patient is breathing comfortably on room air patient denies chest pain, still complaining of shortness of breath on minimal exertion. Denies having any cough or sputum production no nausea vomiting no abdominal pain no diarrhea. Denies pain to the right heel wound The patient white count of 5.3 as of 04/28/2023, creatinine 2.08 Objective - Vital Signs Vital signs: Vital Signs Temp 98.0 F 04/30/23 09:00 Pulse 72 04/30/23 12:09 Resp 16 04/30/23 12:09 BP 140/74 04/30/23 12:09 Pulse Ox 91 L 04/30/23 12:09 FiO2 Intake & Output 04/29/23 04/30/23 04/30/23 18:59 06:59 18:59 Intake Total 1178 733 480 Output Total 700 800 Balance 1178 33 -320 Weight 71.5 kg Intake: Intake, IV Titration 100 193 Amount Furosemide 100 mg In 100 93 Sodium Chloride 0.9% 90 ml @ 15 MG/HR 15 mls/hr IV .Q6H40M [facility] Rx#: [id number] Piperacillin-Tazobactam 3 100 .375 gm In Sodium Chloride 0.9% 100 ml @ 25 mls/hr IVPB Q8HR [facility] Rx# :[id number] Oral 1078 540 480 Output: Urine 700 800 Other: Voiding Method Toilet Toilet Bedside Commode Bedside Commode # Voids 5 - Exam GENERAL DESCRIPTION: Middle-aged female lying in bed in no distress RESPIRATORY SYSTEM: Unlabored breathing , decreased breath sounds at bases HEART: S1 S2 regular rate and rhythm , ABDOMEN: Soft , no tenderness EXTREMITIES: Right heel wound is currently dressed - Labs CBC & Chem 7: 04/28/23 07:13 04/30/23 06:56 Labs: Abnormal Lab Results - Last 24 Hours (Table) 0104/29/23 04/29/23 Range/Units 16:06 20:12 23:41 BUN (7-17) mg/dL Creatinine (0.52-1.04) mg/dL Glucose (74-99) mg/dL POC Glucose (mg/dL) 314 H 134 H 127 H (70-110) mg/dL Albumin (3.5-5.0) g/dL 04/30/23 04/30/23 Range/Units 05:54 06:56 BUN 42 H (7-17) mg/dL Creatinine 2.08 H (0.52-1.04) mg/dL Glucose 102 H (74-99) mg/dL POC Glucose (mg/dL) 112 H (70-110) mg/dL Albumin 2.9 L (3.5-5.0) g/dL Assessment and Plan (1) Cellulitis Current Visit: Yes Status: Acute Code(s): L03.90 - CELLULITIS, UNSPECIFIED SNOMED Code(s): 733358529 (2) Pressure ulcer of right heel, stage 3 Current Visit: Yes Status: Acute Code(s): L89.613 - PRESSURE ULCER OF RIGHT HEEL, STAGE 3 SNOMED Code(s): 75160780795730 (3) Type 2 diabetes mellitus with foot ulcer Current Visit: Yes Status: Acute Code(s): E11.621 - TYPE 2 DIABETES MELLITUS WITH FOOT ULCER; L97.509 - NON-PRESSURE CHRONIC ULCER OTH PRT UNSP FOOT W UNSP SEVERITY SNOMED Code(s): 404301899 Plan: 1patient presented to hospital with a chronic nonhealing wound to the right heel area which apparently has been there for more than a month failing outpatient oral local treatment, did not mention she received any antibiotic therapy we will need to cover for the polymicrobial ananya usually associated wi th diabetic foot infection 2 x-ray did not show any bony destruction and the bonescan was negative for osteomyelitis,local culture currently growing Pseudomonas aeruginosa Enterococcus and procidentia. 3patient is currently being monitored by nephrology for underlying renal insufficiency getting IV Lasix kidney function slightly improved. 4as far as the right heel diabetic foot ulcer with no evidence of any osteomyelitis patient is covered with Zosyn to continue while in the patient local wound care with Aquacel silver dressing change every 48 hours Dictation was produced using dragon dictation software. please excuse any grammatical, word or spelling errors. Time with Patient: Less than 30
--- NOTE | 2023-04-30 13:23 | P.PN ---
Subjective Progress Note Date: 04/30/23 Hospital course: Patient is a very pleasant 57-year-old with a past medical history of type II DM completed by peripheral neuropathy with chronic nonhealing right foot ulcers, hypertension, and hyperlipidemia. She presented to the emergency department on 04/17/23 was directed by PCP for concerns of fluid overload. Chest x-ray in the emergency room was consistent with fluid overload. EKG revealed sinus rhythm short AL interval a 71 bpm with no other ST/T-wave changes noted as reviewed by me. Laboratory evaluation revealed BUN of 42, creatinine 1.82 (no baseline available for comparison), proBNP 16,800, glucose 147, an unremarkable UA and a negative respiratory viral panel negative. Pt was seen by ID regarding her RLE heel ulcer, and wound cultures returned polymicrobial. She was initially treated with unasyn, then switched to zosyn when cultures returned + for pseudomonas, enterococcus faecalis, artemio, and providencia rettgeri. Bone scan and Foot XR negative for osteomyelitis. Echo showed EF 40-45%, with severe pHTN. Renal function elevating, IV Lasix was discontinued and patient switched to torsemide by cardiology. Renal function continues to elevate with BUN of 48, creatinine 2.52, and GFR of 20. Patient also with hyperkalemia this morning with potassium of 5.2.. Orders placed for consult to nephrology. Aldactone discontinued. Patient given a single dose of calcium gluconate 2 g IVPB and sodium bicarb 1 amp. Hyperkalemia resolved. Patient was evaluated by mechanical operator, she underwent ultrasound of kidneys and bladder which showed no evidence for acute process and ruled out hydronephrosis. Nephrology stating acute kidney injury possibly component of cardiorenal syndrome status post diarrhea but also unable to rule out underlying chronic kidney disease/previous labs are not available for comparison. Latex Ribbon Machine Operator recommended 1-2 days of IV iron and starting patient on Aranesp with outpatient follow-up for CKD. Once cleared by nephrology plan is is for discharge home on Augmentin and ciprofloxacin for treatment of infected ulcer. Physical exam: Pt seen and fully evaluated at the bedside this morning, she denies having any new complaints or concerns at this time. Swelling in lower extremities appears slightly improved. Patient only had a documented urinary output of 700 mL over the past 24 hours, however patient has already had 800 mL of documented output t his morning, so is unclear if this is accurately documented yesterday and patient does report missing the hat in the toilet multiple times. Vital signs reviewed and stable. General: Nontoxic, no distress and appears stated age. Derm: Skin warm and dry, normal coloration for ethnicity. Head: Atraumatic, normocephalic and symmetric. Eyes: EOMs intact, no lid lag, and anicteric sclera Mouth: no lip lesions, mucus membranes moist Cardiovascular: regular rate and rhythm with normal S1S2, no murmur, positive posterior tibial pulses bilaterally, and cap refill < 2 seconds. Lungs: Respirations even, regular, and unlabored on room air. Lungs CTA bilaterally, no rhonchi, no rales, no wheezing, and no accessory muscle usage. Abdominal: soft, nontender to palpation, no guarding, no appreciable organomegaly Ext: ROM intact. No gross muscle atrophy, 1+ bilateral lower extremity edema, no contractures Neuro: Speech clear, face symmetrical and CN II-XII grossly intact with no noted focal neuro deficits Psych: Alert and oriented to person, place, time, and situation. Appropriate and pleasant affect. Assessment and Plan of Care: Acute kidney injury on suspected underlying chronic kidney disease Right-sided heart failure Acute systolic CHF exacerbation with EF of 40-45% Severe pulmonary hypertension Diabetic right foot ulcers with superimposed infection, chronic Iron Deficiency Anemia superimposed on Anemia of Chronic Disease Hyperkalemia, resolved Chronic conditions: Hypertension, hyperlipidemia -Cardiology evaluated and made medication changes by discontinuation of amlodipine and maximizing carvedilol. 04/21/23 Cardiology clearing patient from cardiac perspective recommending patient follow-up outpatient for scheduling of right and left heart cath to further evaluate pulmonary hypertension. -Nephrology following and discussed plan of care with Dr. Zambrano. Patient to remain on Lasix infusion at 15 mg/hr -Orders placed for Lasix infusion at 10 mg (10 mL) per hour along with metolazone 5 mg daily. -Continue close monitoring of renal function and electrolytes while on diuretic infusion. -Continue strict I's and O's . -Discontinued home Aldactone and lisinopril secondary to hyperkalemia. -Patient to continue with metolazone 5 mg daily, atorvastatin 40 mg daily, amlodipine 5 mg daily, carvedilol 25 mg twice daily, Farxiga 5 mg daily, and Zetia 10 mg daily. -Wound care and infectious disease following. Patient to continue Zosyn 3.375 g every 8 hours as recommended by infectious disease physician with plan for discharge home on oral antibiotics with Augmentin and ciprofloxacin for treatment of infected ulcer. -Wound culture right foot was reviewed resulting positive for pseudomonas aeruginosa, enterococcus faecalis, artemio albicans, Providencia rettgeri. -Continue use of LUANN hose to improve lower extremity circulation and prevent/improve lower extremity edema. Data reviewed: -Labs completed and reviewed. BMP revealing persistently elevated but stable renal function with BUN of 42, creatinine 2.03, and GFR of 26. Potassium normal findings at 4.0 and magnesium 2.1. -Vital signs reviewed. Blood pressure 148/76, heart rate 75, respiratory rate 16, temp 98.0F, SpO2 of 98% on room air. -Documented urinary output 700 mL over the past 24 hours. DVT prophylaxis: Lovenox CODE STATUS: Full Code Anticipated discharge place: Home with home care Anticipated discharge date: Tomorrow morning Patient was seen independently by Nurse Pracitioner. This document was prepared using [employer] dictation software. Please allow for errors in apartment assistant manager, while rare they do occur. Jacinto Bentley NP rendered care for this patient independently, reviewed the findings and plan as documented in the note above. I did not physically speak with or examine the patient on this date. Objective - Vital Signs Vital signs: Vital Signs Temp 97.7 F 04/30/23 04:00 Pulse 68 04/30/23 04:00 Resp 16 04/30/23 04:00 BP 137/75 04/30/23 04:00 Pulse Ox 96 04/30/23 04:00 FiO2 Intake & Output 04/29/23 04/30/23 04/30/23 18:59 06:59 18:59 Intake Total 1178 733 Output Total 700 Balance 1178 33 Weight 71.5 kg Intake: Intake, IV Titration 100 193 Amount Furosemide 100 mg In 100 93 Sodium Chloride 0.9% 90 ml @ 15 MG/HR 15 mls/hr IV .Q6H40M [facility] Rx#: [id number] Piperacillin-Tazobactam 3 100 .375 gm In Sodium Chloride 0.9% 100 ml @ 25 mls/hr IVPB Q8HR [facility] Rx# :[id number] Oral 1078 540 Output: Urine 700 Other: Voiding Method Toilet Bedside Commode # Voids 5 - Labs CBC & Chem 7: 04/28/23 07:13 04/30/23 06:56 Labs: Abnormal Lab Results - Last 24 Hours (Table) 04/29/23 04/29/23 04/29/23 Range/Units 11:31 16:06 20:12 BUN (7-17) mg/dL Creatinine (0.52-1.04) mg/dL Glucose (74-99) mg/dL POC Glucose (mg/dL) 255 H 314 H 134 H (70-110) mg/dL Albumin (3.5-5.0) g/dL 04/29/23 04/30/23 04/30/23 Range/Units 23:41 05:54 06:56 BUN 42 H (7-17) mg/dL Creatinine 2.08 H (0.52-1.04) mg/dL Glucose 102 H (74-99) mg/dL POC Glucose (mg/dL) 127 H 112 H (70-110) mg/dL Albumin 2.9 L (3.5-5.0) g/dL
[2023-04-30 16:59] LABS: Glucose,Whole Blood 218 mg/dL (70-110)
[2023-04-30 19:55] LABS: Glucose,Whole Blood 277 mg/dL (70-110)
[2023-05-01] MEDS: FUROSEMIDE 100 MG in SODIUM CHLORIDE 0.9% 90 ML IV SCH ×4 (04:04→23:06)
[2023-05-01 05:51] LABS: Glucose,Whole Blood 156 mg/dL (70-110)
[2023-05-01] MEDS: INSULIN DETEMIR (LEVEMIR) 100 UNIT/ML SYR SQ SCH (06:27)
[2023-05-01] MEDS: INSULIN ASPART (NovoLOG) 100 UNIT/ML VIAL SQ SCH ×4 (06:28→21:20)
[2023-05-01 06:52] LABS: African American GFR (CKD) 24 (>60 ml/min/1.73 sqM); Anion Gap 13 mmol/L; Blood Urea Nitrogen 49 mg/dL (7-17); Calcium 8.3 mg/dL (8.4-10.2); Carbon Dioxide 27 mmol/L (22-30); Chloride 97 mmol/L (98-107); Glucose 131 mg/dL (74-99); Magnesium 2.1 mg/dL (1.6-2.3); Non-African American GFR(CKD) 21 (>60 ml/min/1.73 sqM); Potassium 3.8 mmol/L (3.5-5.1); Sodium 137 mmol/L (137-145)
[2023-05-01] MEDS: SERTRALINE 50 MG TAB PO SCH (08:24)
[2023-05-01] MEDS: carvediloL 12.5 MG TAB PO SCH ×2 (08:24→16:37)
[2023-05-01] MEDS: DAPAGLIFLOZIN PROPANEDIOL 5 MG TABLET PO SCH (08:24)
[2023-05-01] MEDS: MULTIVITAMINS, THERA 1 EACH TAB PO SCH (08:24)
[2023-05-01] MEDS: PIPERACILLIN-TAZOBACTAM 3.375 GM in SODIUM CHLORIDE 0.9% 100 ML IVPB SCH ×3 (08:24→23:05)
[2023-05-01] MEDS: GABAPENTIN 300 MG CAP PO SCH ×4 (08:24→21:20)
[2023-05-01] MEDS: EZETIMIBE 10 MG TAB PO SCH (08:24)
[2023-05-01] MEDS: metOLazone 5 MG TAB PO SCH (08:24)
[2023-05-01] MEDS: amLODIPine 5 MG TAB PO SCH (08:24)
[2023-05-01] MEDS: ATORVASTATIN 40 MG TAB PO SCH (08:24)
--- NOTE | 2023-05-01 10:00 | P.PN ---
Subjective Patient is seen in follow-up for acute kidney injury. Renal function fairly worse from diuresis. On Lasix drip. Also on metolazone and farxiga. Has been voiding. Edema improving. Urine output improved. Documented as 4.3 L in the last 24 hours. Weight trending down. Vital signs are stable. General: No acute distress. HEENT: Head exam is unremarkable. LUNGS: No audible rhonchi or wheezes. HEART: Rate and Rhythm are regular. ABDOMEN: Nontender. EXTREMITITES: 1+ edema. Objective - Vital Signs Vital signs: Vital Signs Temp 97.7 F 05/01/23 04:00 Pulse 75 05/01/23 08:24 Resp 16 05/01/23 08:24 BP 148/73 05/01/23 08:24 Pulse Ox 92 L 05/01/23 04:00 FiO2 Intake & Output 04/30/23 05/01/23 05/01/23 18:59 06:59 18:59 Intake Total 1520 100 540 Output Total 2500 1800 Balance -980 -1700 540 Weight 70 kg Intake: Intake, IV Titration 200 100 Amount Furosemide 100 mg In 100 100 Sodium Chloride 0.9% 90 ml @ 15 MG/HR 15 mls/hr IV .Q6H40M [facility] Rx#: [id number] Piperacillin-Tazobactam 3 100 .375 gm In Sodium Chloride 0.9% 100 ml @ 25 mls/hr IVPB Q8HR [facility] Rx# :[id number] Oral 1320 540 Output: Urine 2500 1800 Other: Voiding Method Toilet Toilet Toilet Bedside Commode - Labs CBC & Chem 7: 04/28/23 07:13 05/01/23 05:58 Labs: Abnormal Lab Results - Last 24 Hours (Table) 04/30/23 04/30/23 05/01/23 Range/Units 16:43 19:53 05:48 Chloride (98-107) mmol/L BUN (7-17) mg/dL Creatinine (0.52-1.04) mg/dL Glucose (74-99) mg/dL POC Glucose (mg/dL) 218 H 277 H 156 H (70-110) mg/dL Calcium (8.4-10.2) mg/dL 05/01/23 Range/Units 05:58 Chloride 97 L (98-107) mmol/L BUN 49 H (7-17) mg/dL Creatinine 2.51 H (0.52-1.04) mg/dL Glucose 131 H (74-99) mg/dL POC Glucose (mg/dL) (70-110) mg/dL Calcium 8.3 L (8.4-10.2) mg/dL Assessment and Plan Plan: Assessment: 1. Acute kidney injury secondary to ATN secondary to cardiorenal syndrome. No hydronephrosis noted on kidney ultrasound. Renal function worsened from diuresis. Creatinine 2.51 today. Unknown baseline renal function. UA reveals 1+ protein. Possibly underlying diabetic kidney disease. Further workup outpatient. 2. Acute on chronic systolic CHF with ejection fraction of 40-45% with severe pulmonary hypertension. 3. Volume overload. Starting to improve with diuresis. 4. Right lower extremity cellulitis on antibiotics. 5. Diabetes mellitus. 6. Anemia. Iron deficiency noted. Likely component of underlying chronic kidney disease. s/p IV iron. Also on Aranesp. 7. Benign hypertension. Component of hypervolemia. Stable. 8. Hypokalemia from diuresis. Replaced. Stable. Plan: Maintain Lasix drip at 15 mL an hour. Maintain metolazone 5 mg once daily. Maintain Farxiga. Replace potassium. 1500 mL fluid restriction. Strict I's and O's. Amlodipine added 04/26/2023. Avoid nephrotoxins. Discussed with primary team. I advised patient to maintain low-salt diet and fluid restriction of less than 50 ounces per day upon discharge. Patient also advised to monitor her weight closely at home and to notify physician if develops worsening edema or gains more than 3 pounds in 1 week duration. Repeat BMP and magnesium level 2-3 days postdischarge. Follow up outpatient in 1 week.
--- NOTE | 2023-05-01 11:06 | P.PN ---
Subjective Progress Note Date: 05/01/23 Patient is a very pleasant 57-year-old with a past medical history of type II DM completed by peripheral neuropathy with chronic nonhealing right foot ulcers, hypertension, and hyperlipidemia. She presented to the emergency department on 04/17/23 was directed by PCP for concerns of fluid overload. Chest x-ray in the emergency room was consistent with fluid overload. EKG revealed sinus rhythm short MI interval a [address] bpm with no other [address]/T-wave changes. Laboratory evaluation revealed BUN of 42, creatinine 1.82 (no baseline available for comparison), proBNP 16,800, glucose 147, an unremarkable UA and a negative respiratory viral panel negative. Patient was seen by ID regarding her RLE heel ulcer, and WCx returned polymicrobial. She was initially treated with Unasyn, then switched to Zosyn when cultures returned + for pseudomonas, enterococcus faecalis, artemio, and providencia rettgeri. Bone scan and Foot XR negative for osteomyelitis. Plans for discharge on Augmentin and ciprofloxacin for treatment of infected ulcer. Echo showed EF 40-45%, global hypokinesis, mod MR/TR, with severe pulmonary HTN. Diuresed with Lasix, currently on Lasix drip at 15 ml/hr and Metolazone 5 mg PO QD, fluid restriction. Renal function worsened due to diuresis. Nephrology consulted, possible card iorenal component post diarrhea with no baseline renal function. Renal US negative for hydronephrosis. Patient also with hyperkalemia on 04/19, 04/22 and 04/23. Aldactone discontinued. Patient given a single dose of calcium gluconate 2 g IVPB and sodium bicarb 1 amp. Hyperkalemia resolved. Cardiology recommended outpatient followup for right and left heart cath. 05/01 Patient was seen and examined. Reports slight improvement in her breathing and lower extremity swelling. Currently on Lasix drip at 15 ml/hr. Uoutput 1300 cc over the past 24H. Weight 74.843-71.5kg since admission. POC glucose 112-277 over the past 24H. BMP Cl 97, BUN 49, Cr 2.51, glu 131, Ca 8.3. General: non toxic, no distress, appears at stated age Derm: warm, dry Head: atraumatic, normocephalic, symmetric Eyes: EOMI, no lid lag, anicteric sclera Mouth: no lip lesion, mucus membranes moist Cardiovascular: S1S2 reg, no murmur Lungs: Decreased BS bilateral, no rhonchi, no rales , no accessory muscle use Ext: no gross muscle atrophy, 1+ edema, no contractures Neuro: no focal neuro deficits Psych: Alert, oriented, appropriate affect Based on my assessment of this patient, this patient meets a high complexity level of care. Patient has an acute diagnosis of volume overload now acute kidney injury that poses a threat to life or bodily function. Acute kidney injury on suspected underlying chronic kidney disease: Renal US negative for obstruction. Maintain Lasix drip at 15 ml/hr. Metolazone 5 mg PO QD. Daily electrolytes while on lasix drip. Nephrology on board. Acute systolic CHF exacerbation with EF of 40-45%: Diuresis with Lasix and Metolazone as above. Coreg 25 mg PO BID. Farxiga 5 mg PO QD. No ACEi or Aldactone due to worsening renal function and hyperkalemia. Strict intake and outtake. Daily weights. Diabetes mellitus with hyperglycemia: Levemir 15 units QD. Novolog per sliding scale. Accuchecks ACHS. Hypoglycemic precautions. Severe pulmonary hypertension: Outpatient right heart cath per Cardiology. Diabetic right foot ulcers with superimposed infection: Continue Zosyn 3.375g IV TID (Day 10). Augmenting and Cipro on discharge? ID on board. Iron Deficiency Anemia superimposed on Anemia of Chronic Disease Resolved: Hyperkalemia Chronic conditions: Hypertension, hyperlipidemia CODE STATUS: FULL CODE. DVT Prophylaxis: Lovenox SQ GI Prophylaxis: Protonix IV Designated medical POA if patient is not able to make medical decisions for themselves: Anticipated discharge: Home. I have reviewed the following home energy consultant supervisor notes: Nephrology. I have reviewed the results of the following tests: BMP I have ordered the following tests: BMP I have discussed the care of this patient with the following independent historian: I have independently interpreted the following test below: I have discussed the management of this patient with the following physician: This patient meets a high level of care for the following reasons: Patient requires IV lasix which requires intensive monitoring for renal toxicitiy. Objective - Vital Signs Vital signs: Vital Signs Temp 97.7 F 05/01/23 04:00 Pulse 68 05/01/23 04:00 Resp 18 05/01/23 04:00 BP 154/73 05/01/23 04:00 Pulse Ox 92 L 05/01/23 04:00 FiO2 Intake & Output 04/30/23 04/30/23 05/01/23 06:59 18:59 06:59 Intake Total 733 1520 100 Output Total 700 2500 1800 Balance 33 -404 -1700 Weight 71.5 kg Intake: Intake, IV Titration 193 200 100 Amount Furosemide 100 mg In 93 100 100 Sodium Chloride 0.9% 90 ml @ 15 MG/HR 15 mls/hr IV .Q6H40M [facility] Rx#: [id number] Piperacillin-Tazobactam 3 100 100 .375 gm In Sodium Chloride 0.9% 100 ml @ 25 mls/hr IVPB Q8HR [facility] Rx# :[id number] Oral 540 1320 Output: Urine 700 2500 1800 Other: Voiding Method Toilet Toilet Toilet Bedside Commode Bedside Commode # Voids 5 - Labs CBC & Chem 7: 04/28/23 07:13 05/01/23 05:58 Labs: Abnormal Lab Results - Last 24 Hours (Table) 04/30/23 04/30/23 04/30/23 Range/Units 05:54 06:56 16:43 BUN 42 H (7-17) mg/dL Creatinine 2.08 H (0.52-1.04) mg/dL Glucose 102 H (74-99) mg/dL POC Glucose (mg/dL) 112 H 218 H (70-110) mg/dL Albumin 2.9 L (3.5-5.0) g/dL 04/30/23 Range/Units 19:53 BUN (7-17) mg/dL Creatinine (0.52-1.04) mg/dL Glucose (74-99) mg/dL POC Glucose (mg/dL) 277 H (70-110) mg/dL Albumin (3.5-5.0) g/dL
[2023-05-01 11:41] LABS: Glucose,Whole Blood 366 mg/dL (70-110)
--- NOTE | 2023-05-01 12:12 | P.PN ---
Subjective Progress Note Date: 05/01/23 Principal diagnosis: Reason for follow-up his right heel diabetic foot infection and wound Patient is a 57-year-old female with a past medical history significant for diabetes mellitus hypertension hyperlipidemia patient did have a history of chronic nonhealing wound to the right heel area, patient was sent to the ER for nonhealing of the wound concerning for possible deep infection. On today's evaluation that is 05/01/2023, the patient denies having any fever or any chills, the patient is breathing comfortably on room air, the patient denies chest pain shortness of the cough, the patient denies nausea no vomiting no abdominal pain and denies pain to the right heel wound area Patient did have a creatinine 2.51 Objective - Vital Signs Vital signs: Vital Signs Temp 97.7 F 05/01/23 04:00 Pulse 75 05/01/23 08:24 Resp 16 05/01/23 08:24 BP 148/73 05/01/23 08:24 Pulse Ox 92 L 05/01/23 04:00 FiO2 Intake & Output 04/30/23 05/01/23 05/01/23 18:59 06:59 18:59 Intake Total 1520 100 540 Output Total 2500 1800 Balance -980 -1700 540 Weight 70 kg Intake: Intake, IV Titration 200 100 Amount Furosemide 100 mg In 100 100 Sodium Chloride 0.9% 90 ml @ 15 MG/HR 15 mls/hr IV .Q6H40M [facility] Rx#: [id number] Piperacillin-Tazobactam 3 100 .375 gm In Sodium Chloride 0.9% 100 ml @ 25 mls/hr IVPB Q8HR [facility] Rx# :[id number] Oral 1320 540 Output: Urine 2500 1800 Other: Voiding Method Toilet Toilet Toilet Bedside Commode - Exam GENERAL DESCRIPTION: Middle-aged female lying in bed in no distress RESPIRATORY SYSTEM: Unlabored breathing , decreased breath sounds at bases HEART: S1 S2 regular rate and rhythm , ABDOMEN: Soft , no tenderness EXTREMITIES: Right heel wound is currently dressed - Labs CBC & Chem 7: 04/28/23 07:13 05/01/23 05:58 Labs: Abnormal Lab Results - Last 24 Hours (Table) 04/30/23 04/30/23 05/01/23 Range/Units 16:43 19:53 05:48 Chloride (98-107) mmol/L BUN (7-17) mg/dL Creatinine (0.52-1.04) mg/dL Glucose (74-99) mg/dL POC Glucose (mg/dL) 218 H 277 H 156 H (70-110) mg/dL Calcium (8.4-10.2) mg/dL 05/01/23 05/01/23 Range/Units 05:58 11:38 Chloride 97 L (98-107) mmol/L BUN 49 H (7-17) mg/dL Creatinine 2.51 H (0.52-1.04) mg/dL Glucose 131 H (74-99) mg/dL POC Glucose (mg/dL) 366 H (70-110) mg/dL Calcium 8.3 L (8.4-10.2) mg/dL Assessment and Plan (1) Cellulitis Current Visit: Yes Status: Acute Code(s): L03.90 - CELLULITIS, UNSPECIFIED SNOMED Code(s): 792352258 (2) Pressure ulcer of right heel, stage 3 Current Visit: Yes Status: Acute Code(s): L89.613 - PRESSURE ULCER OF RIGHT HEEL, STAGE 3 SNOMED Code(s): 98668107782170 (3) Type 2 diabetes mellitus with foot ulcer Current Visit: Yes Status: Acute Code(s): E11.621 - TYPE 2 DIABETES MELLITUS WITH FOOT ULCER; L97.509 - NON-PRESSURE CHRONIC ULCER OTH PRT UNSP FOOT W UNSP SEVERITY SNOMED Code(s): 789177588 Plan: 1patient presented to hospital with a chronic nonhealing wound to the right heel area which apparently has been there for more than a month failing outpatient oral local treatment, did not mention she received any antibiotic therapy we will need to cover for the polymicrobial ananya usually associated with diabetic foot infection 2 x-ray did not show any bony destruction and the bonescan was negative for osteomyelitis,local culture currently growing Pseudomonas aeruginosa Enterococcus and procidentia. 3patient is currently being monitored by nephrology for underlying renal insufficiency , Slight worsening of creatinine today. 4patient to continue the Zosyn for right heel infected diabetic foot ulcer and local wound care with Aquacel silver dressing changes change every 48 hour Dictation was produced using [employer] dictation software. please excuse any grammatical, word or spelling errors. Time with Patient: Less than 30
[2023-05-01] MEDS: ENOXAPARIN 30 MG/0.3 ML SYRINGE SQ SCH (12:55)
[2023-05-01 16:31] LABS: Glucose,Whole Blood 257 mg/dL (70-110)
[2023-05-01 19:48] LABS: Glucose,Whole Blood 247 mg/dL (70-110)
[2023-05-01] MEDS: hydrALAZINE HCL 20 MG/ML 1 ML VIAL IVP PRN (23:08)
[2023-05-02] MEDS: FUROSEMIDE 100 MG in SODIUM CHLORIDE 0.9% 90 ML IV SCH ×3 (05:07→21:20)
[2023-05-02 06:12] LABS: Glucose,Whole Blood 213 mg/dL (70-110)
[2023-05-02] MEDS: INSULIN DETEMIR (LEVEMIR) 100 UNIT/ML SYR SQ SCH (06:32)
[2023-05-02] MEDS: INSULIN ASPART (NovoLOG) 100 UNIT/ML VIAL SQ SCH ×4 (06:32→20:42)
[2023-05-02 08:25] LABS: African American GFR (CKD) 21 (>60 ml/min/1.73 sqM); Anion Gap 15 mmol/L; Blood Urea Nitrogen 52 mg/dL (7-17); Calcium 8.2 mg/dL (8.4-10.2); Carbon Dioxide 28 mmol/L (22-30); Chloride 96 mmol/L (98-107); Glucose 182 mg/dL (74-99); Non-African American GFR(CKD) 18 (>60 ml/min/1.73 sqM); Potassium 3.3 mmol/L (3.5-5.1); Sodium 139 mmol/L (137-145)
[2023-05-02] MEDS: SERTRALINE 50 MG TAB PO SCH (09:27)
[2023-05-02] MEDS: EZETIMIBE 10 MG TAB PO SCH (09:27)
[2023-05-02] MEDS: GABAPENTIN 300 MG CAP PO SCH ×4 (09:27→20:41)
[2023-05-02] MEDS: carvediloL 12.5 MG TAB PO SCH ×2 (09:27→17:17)
[2023-05-02] MEDS: PIPERACILLIN-TAZOBACTAM 3.375 GM in SODIUM CHLORIDE 0.9% 100 ML IVPB SCH ×2 (09:27→20:47)
[2023-05-02] MEDS: amLODIPine 5 MG TAB PO SCH (09:28)
[2023-05-02] MEDS: ATORVASTATIN 40 MG TAB PO SCH (09:28)
[2023-05-02] MEDS: ENOXAPARIN 30 MG/0.3 ML SYRINGE SQ SCH (09:28)
[2023-05-02] MEDS: MULTIVITAMINS, THERA 1 EACH TAB PO SCH (09:28)
[2023-05-02] MEDS: metOLazone 5 MG TAB PO SCH (09:31)
[2023-05-02] MEDS: DAPAGLIFLOZIN PROPANEDIOL 5 MG TABLET PO SCH (09:31)
[2023-05-02] MEDS ORDERED: POTASSIUM CHLORIDE ER 20 MEQ TAB.ER PO STA (11:07)
--- NOTE | 2023-05-02 11:10 | P.PN ---
Subjective Patient is seen in follow-up for acute kidney injury. Renal function worsened from diuresis. On Lasix drip. Also on metolazone and farxiga. Edema improving. Nonoliguric. Vital signs are stable. General: No acute distress. HEENT: Head exam is unremarkable. LUNGS: No audible rhonchi or wheezes. HEART: Rate and Rhythm are regular. ABDOMEN: Nontender. EXTREMITITES: 1+ edema. Objective - Vital Signs Vital signs: Vital Signs Temp 98.0 F 05/02/23 09:25 Pulse 71 05/02/23 09:25 Resp 15 05/02/23 09:25 BP 151/76 05/02/23 09:25 Pulse Ox 94 L 05/02/23 09:25 FiO2 Intake & Output 05/01/23 05/02/23 05/02/23 18:59 06:59 18:59 Intake Total 1638 297.50 Output Total 1400 600 Balance 238 -302.50 Weight 70.6 kg Intake: IV 10 0.9 10 Intake, IV Titration 200 287.50 Amount Furosemide 100 mg In 100 187.50 Sodium Chloride 0.9% 90 ml @ 15 MG/HR 15 mls/hr IV .Q6H40M [facility] Rx#: [id number] Piperacillin-Tazobactam 3 100 100 .375 gm In Sodium Chloride 0.9% 100 ml @ 25 mls/hr IVPB Q8HR [facility] Rx# :[id number] Oral 1438 Output: Urine 1400 600 Other: Voiding Method Toilet Toilet - Labs CBC & Chem 7: 04/28/23 07:13 05/02/23 06:53 Labs: Abnormal Lab Results - Last 24 Hours (Table) 05/01/23 05/01/23 05/01/23 Range/Units 11:38 16:30 19:45 Potassium (3.5-5.1) mmol/L Chloride (98-107) mmol/L BUN (7-17) mg/dL Creatinine (0.52-1.04) mg/dL Glucose (74-99) mg/dL POC Glucose (mg/dL) 366 H 257 H 247 H (70-110) mg/dL Calcium (8.4-10.2) mg/dL 05/02/23 05/02/23 Range/Units 06:11 06:53 Potassium 3.3 L (3.5-5.1) mmol/L Chloride 96 L (98-107) mmol/L BUN 52 H (7-17) mg/dL Creatinine 2.76 H (0.52-1.04) mg/dL Glucose 182 H (74-99) mg/dL POC Glucose (mg/dL) 213 H (70-110) mg/dL Calcium 8.2 L (8.4-10.2) mg/dL Assessment and Plan Plan: Assessment: 1. Acute kidney injury secondary to ATN secondary to cardiorenal syndrome. No hydronephrosis noted on kidney ultrasound. Renal function worsened from diuresis. Creatinine 2.76 today. Unknown baseline renal function. UA reveals 1+ protein. Possibly underlying diabetic kidney disease. Further workup outpatient. 2. Acute on chronic systolic CHF with ejection fraction of 40-45% with severe pulmonary hypertension. 3. Volume overload. Starting to improve with diuresis. 4. Right lower extremity cellulitis on antibiotics. 5. Diabetes mellitus. 6. Anemia. Iron deficiency noted. Likely component of underlying chronic kidney disease. s/p IV iron. Also on Aranesp. 7. Benign hypertension. Component of hypervolemia. Stable. 8. Hypokalemia from diuresis. Magnesium normal. Plan: Maintain Lasix drip at 15 mL an hour for now. Maintain metolazone 5 mg once daily. Maintain Farxiga. Replace potassium. 1500 mL fluid restriction. Strict I's and O's. Avoid nephrotoxins. Discussed with primary team. I advised patient to maintain low-salt diet and fluid restriction of less than 50 ounces per day upon discharge. Patient also advised to monitor her weight closely at home and to notify physician if develops worsening edema or gains more than 3 pounds in 1 week duration. Repeat BMP and magnesium level 2-3 days postdischarge. Follow up outpatient in 1 week.
[2023-05-02 11:24] LABS: Glucose,Whole Blood 146 mg/dL (70-110)
--- NOTE | 2023-05-02 11:43 | P.PN ---
Subjective Progress Note Date: 05/02/23 Patient is a very pleasant 57-year-old with a past medical history of type II DM completed by peripheral neuropathy with chronic nonhealing right foot ulcers, hypertension, and hyperlipidemia. She presented to the emergency department on 04/17/23 was directed by PCP for concerns of fluid overload. Chest x-ray in the emergency room was consistent with fluid overload. EKG revealed sinus rhythm short [place] interval a [address]/T-wave changes. Laboratory evaluation revealed BUN of 42, creatinine 1.82 (no baseline available for comparison), proBNP 16,800, glucose 147, an unremarkable UA and a negative respiratory viral panel negative. Patient was seen by ID regarding her RLE heel ulcer, and WCx returned polymicrobial. She was initially treated with Unasyn, then switched to Zosyn when cultures returned + for pseudomonas, enterococcus faecalis, artemio, and providencia rettgeri. Bone scan and Foot XR negative for osteomyelitis. Plans for discharge on Augmentin and ciprofloxacin for treatment of infected ulcer. Echo showed EF 40-45%, global hypokinesis, mod MR/TR, with severe pulmonary HTN. Diuresed with Lasix, currently on Lasix drip at 15 ml/hr and Metolazone 5 mg PO QD, fluid restriction. Renal function worsened due to diuresis. Nephrology consulted, possible card iorenal component post diarrhea with no baseline renal function. Renal US negative for hydronephrosis. Patient also with hyperkalemia on 04/19, 04/22 and 04/23. Aldactone discontinued. Patient given a single dose of calcium gluconate 2 g IVPB and sodium bicarb 1 amp. Hyperkalemia resolved. Cardiology recommended outpatient followup for right and left heart cath. 05/01 Patient was seen and examined. Reports slight improvement in her breathing and lower extremity swelling. Currently on Lasix drip at 15 ml/hr. Uoutput 1300 cc over the past 24H. Weight 74.843-71.5kg since admission. POC glucose 112-277 over the past 24H. BMP Cl 97, BUN 49, Cr 2.51, glu 131, Ca 8.3. 05/02 Patient was seen and examined. Swelling slowly improving. Currently on Lasix drip at 15 ml/hr. Uoutput 2680 cc over the past 24H. Weight 74.843-70.6kg since admission. POC glucose 156-356 over the past 24H. BMP K 3.3, Cl 96, BUN 52, Cr 2.76, glu 182, Ca 8.2. Mag 2.3. General: non toxic, no distress, appears at stated age Derm: warm, dry Head: atraumatic, normocephalic, symmetric Eyes: EOMI, no lid lag, anicteric sclera Mouth: no lip lesion, mucus membranes moist Cardiovascular: S1S2 reg, no murmur Lungs: Decreased BS bilateral, no rhonchi, no rales , no accessory muscle use Ext: no gross muscle atrophy, 1+ edema up to thighs, no contractures Neuro: no focal neuro deficits Psych: Alert, oriented, appropriate affect Based on my assessment of this patient, this patient meets a high complexity level of care. Patient has an acute diagnosis of volume overload now acute kidney injury that poses a threat to life or bodily function. Acute kidney injury on suspected underlying chronic kidney disease: Renal US negative for obstruction. Maintain Lasix drip at 15 ml/hr. Metolazone 5 mg PO QD. Daily electrolytes while on lasix drip. Nephrology on board. Acute systolic CHF exacerbation with EF of 40-45%: Diuresis with Lasix and Metolazone as above. Coreg 25 mg PO BID. Farxiga 5 mg PO QD. No ACEi or Aldact one due to worsening renal function and hyperkalemia. Strict intake and outtake. Daily weights. HypoK: Replaced. Monitor. Diabetes mellitus with hyperglycemia: Levemir 15 units QD. Novolog per sliding scale. Accuchecks ACHS. Hypoglycemic precautions. Severe pulmonary hypertension: Outpatient right heart cath per Cardiology. Diabetic right foot ulcers with superimposed infection: Continue Zosyn 3.375g IV TID (Day 11). Augmenting and Cipro on discharge? ID on board. Iron Deficiency Anemia superimposed on Anemia of Chronic Disease Resolved: Hyperkalemia Chronic conditions: Hypertension, hyperlipidemia CODE STATUS: FULL CODE. DVT Prophylaxis: Lovenox SQ GI Prophylaxis: Protonix IV Designated medical POA if patient is not able to make medical decisions for themselves: Anticipated discharge: Home. I have reviewed the following sharepoint consultant notes: Nephrology. I have reviewed the results of the following tests: BMP I have ordered the following tests: BMP I have discussed the care of this patient with the following independent historian: I have independently interpreted the following test below: I have discussed the management of this patient with the following physician: Discussed with Dr. Zambrano This patient meets a high level of care for the following reasons: Patient requires IV lasix which requires intensive monitoring for renal toxicitiy. Objective - Vital Signs Vital signs: Vital Signs Temp 97.7 F 05/02/23 04:00 Pulse 74 05/02/23 04:00 Resp 18 05/02/23 04:00 BP 139/65 05/02/23 04:00 Pulse Ox 91 L 05/02/23 04:00 FiO2 Intake & Output 05/01/23 05/02/23 05/02/23 18:59 06:59 18:59 Intake Total 1638 297.50 Output Total 1400 600 Balance 238 -302.50 Weight 70.6 kg Intake: IV 10 0.9 10 Intake, IV Titration 200 287.50 Amount Furosemide 100 mg In 100 187.50 Sodium Chloride 0.9% 90 ml @ 15 MG/HR 15 mls/hr IV .Q6H40M [facility] Rx#: [id number] Piperacillin-Tazobactam 3 100 100 .375 gm In Sodium Chloride 0.9% 100 ml @ 25 mls/hr IVPB Q8HR [facility] Rx# :[id number] Oral 1438 Output: Urine 1400 600 Other: Voiding Method Toilet Toilet - Labs CBC & Chem 7: 04/28/23 07:13 05/02/23 06:53 Labs: Abnormal Lab Results - Last 24 Hours (Table) 05/01/23 05/01/23 05/01/23 Range/Units 11:38 16:30 19:45 POC Glucose (mg/dL) 366 H 257 H 247 H (70-110) mg/dL 05/02/23 Range/Units 06:11 POC Glucose (mg/dL) 213 H (70-110) mg/dL
[2023-05-02] MEDS: DARBEPOETIN ALFA 40 MCG/0.4 ML SYRINGE SQ SCH (11:57)
--- NOTE | 2023-05-02 14:59 | P.PN ---
Subjective Progress Note Date: 05/02/23 Principal diagnosis: Reason for follow-up his right heel diabetic foot infection and wound Patient is a 57-year-old female with a past medical history significant for diabetes mellitus hypertension hyperlipidemia patient did have a history of chronic nonhealing wound to the right heel area, patient was sent to the ER for nonhealing of the wound concerning for possible deep infection. On today's evaluation that is 05/02/2023, the patient remains to be afebrile, the patient is breathing comfortably on room air patient denies having any chest pain cough, no nausea vomiting no abdominal pain no diarrhea lower extremity swelling has decreased in intensity. Patient creatinine slightly up to 2.76 no CBC was done today Objective - Vital Signs Vital signs: Vital Signs Temp 98.0 F 05/02/23 09:25 Pulse 70 05/02/23 12:04 Resp 16 05/02/23 12:04 BP 149/76 05/02/23 12:04 Pulse Ox 94 L 05/02/23 12:04 FiO2 Intake & Output 05/01/23 05/02/23 05/02/23 18:59 06:59 18:59 Intake Total 1638 297.50 100 Output Total 1400 600 300 Balance 238 -302.50 -200 Weight 70.6 kg Intake: IV 10 0.9 10 Intake, IV Titration 200 287.50 100 Amount Furosemide 100 mg In 100 187.50 100 Sodium Chloride 0.9% 90 ml @ 15 MG/HR 15 mls/hr IV .Q6H40M [facility] Rx#: [id number] Piperacillin-Tazobactam 3 100 100 .375 gm In Sodium Chloride 0.9% 100 ml @ 25 mls/hr IVPB Q8HR [facility] Rx# :[id number] Oral 1438 Output: Urine 1400 600 300 Other: Voiding Method Toilet Toilet # Voids 1 - Exam GENERAL DESCRIPTION: Middle-aged female lying in bed in no distress RESPIRATORY SYSTEM: Unlabored breathing , decreased breath sounds at bases HEART: S1 S2 regular rate and rhythm , ABDOMEN: Soft , no tenderness EXTREMITIES: Right heel wound is currently dressed - Labs CBC & Chem 7: 04/28/23 07:13 05/02/23 06:53 Labs: Abnormal Lab Results - Last 24 Hours (Table) 05/01/23 05/01/23 05/02/23 Range/Units 16:30 19:45 06:11 Potassium (3.5-5.1) mmol/L Chloride (98-107) mmol/L BUN (7-17) mg/dL Creatinine (0.52-1.04) mg/dL Glucose (74-99) mg/dL POC Glucose (mg/dL) 257 H 247 H 213 H (70-110) mg/dL Calcium (8.4-10.2) mg/dL 05/02/23 05/02/23 Range/Units 06:53 11:22 Potassium 3.3 L (3.5-5.1) mmol/L Chloride 96 L (98-107) mmol/L BUN 52 H (7-17) mg/dL Creatinine 2.76 H (0.52-1.04) mg/dL Glucose 182 H (74-99) mg/dL POC Glucose (mg/dL) 146 H (70-110) mg/dL Calcium 8.2 L (8.4-10.2) mg/dL Assessment and Plan (1) Cellulitis Current Visit: Yes Status: Acute Code(s): L03.90 - CELLULITIS, UNSPECIFIED SNOMED Code(s): 624870276 (2) Pressure ulcer of right heel, stage 3 Current Visit: Yes Status: Acute Code(s): L89.613 - PRESSURE ULCER OF RIGHT HEEL, STAGE 3 SNOMED Code(s): 41356602994942 (3) Type 2 diabetes mellitus with foot ulcer Current Visit: Yes Status: Acute Code(s): E11.621 - TYPE 2 DIABETES MELLITUS WITH FOOT ULCER; L97.509 - NON-PRESSURE CHRONIC ULCER OTH PRT UNSP FOOT W UNSP SEVERITY SNOMED Code(s): 692516073 Plan: 1patient presented to hospital with a chronic nonhealing wound to the right heel area which apparently has been there for more than a month failing outpatient oral local treatment, x-ray did not show any bony destruction and the bonescan was negative for osteomyelitis,local culture currently growing Pseudomonas aeruginosa Enterococcus and procidentia. 2patient to continue the Zosyn for right heel infected diabetic foot ulcer and local wound care with Aquacel silver dressing changes change every 48 hour Dictation was produced using [employer] dictation software. please excuse any grammatical, word or spelling errors. Time with Patient: Less than 30
[2023-05-02 16:25] LABS: Glucose,Whole Blood 203 mg/dL (70-110)
[2023-05-02 19:24] LABS: Glucose,Whole Blood 263 mg/dL (70-110)
[2023-05-03] MEDS: FUROSEMIDE 100 MG in SODIUM CHLORIDE 0.9% 90 ML IV SCH ×2 (04:30→09:17)
[2023-05-03] MEDS: INSULIN ASPART (NovoLOG) 100 UNIT/ML VIAL SQ SCH ×4 (06:02→20:47)
[2023-05-03 06:03] LABS: Glucose,Whole Blood 78 mg/dL (70-110)
[2023-05-03] MEDS: INSULIN DETEMIR (LEVEMIR) 100 UNIT/ML SYR SQ SCH (06:43)
[2023-05-03] MEDS: carvediloL 12.5 MG TAB PO SCH ×2 (07:44→16:48)
[2023-05-03] MEDS: ENOXAPARIN 30 MG/0.3 ML SYRINGE SQ SCH (07:44)
[2023-05-03] MEDS: PIPERACILLIN-TAZOBACTAM 3.375 GM in SODIUM CHLORIDE 0.9% 100 ML IVPB SCH ×2 (07:44→20:47)
[2023-05-03] MEDS: GABAPENTIN 300 MG CAP PO SCH ×4 (07:44→20:45)
[2023-05-03] MEDS: EZETIMIBE 10 MG TAB PO SCH (07:45)
[2023-05-03] MEDS: amLODIPine 5 MG TAB PO SCH (07:45)
[2023-05-03] MEDS: DAPAGLIFLOZIN PROPANEDIOL 5 MG TABLET PO SCH (07:45)
[2023-05-03] MEDS: metOLazone 5 MG TAB PO SCH (07:45)
[2023-05-03] MEDS: SERTRALINE 50 MG TAB PO SCH (07:45)
[2023-05-03] MEDS: ATORVASTATIN 40 MG TAB PO SCH (07:45)
[2023-05-03] MEDS: MULTIVITAMINS, THERA 1 EACH TAB PO SCH (07:45)
[2023-05-03 08:04] LABS: African American GFR (CKD) 20 (>60 ml/min/1.73 sqM); Anion Gap 12 mmol/L; Blood Urea Nitrogen 55 mg/dL (7-17); Carbon Dioxide 30 mmol/L (22-30); Chloride 96 mmol/L (98-107); Glucose 95 mg/dL (74-99); Non-African American GFR(CKD) 17 (>60 ml/min/1.73 sqM); Potassium 3.9 mmol/L (3.5-5.1); Sodium 138 mmol/L (137-145)
[2023-05-03 08:05] LABS: Calcium 8.5 mg/dL (8.4-10.2)
--- NOTE | 2023-05-03 11:00 | P.PN ---
Subjective Patient is seen in follow-up for acute kidney injury. Renal function worsened from diuresis. On Lasix drip. Also on metolazone and farxiga. Edema improving. Nonoliguric. Vital signs are stable. General: No acute distress. HEENT: Head exam is unremarkable. LUNGS: No audible rhonchi or wheezes. HEART: Rate and Rhythm are regular. ABDOMEN: Nontender. EXTREMITITES: 1+ edema. Objective - Vital Signs Vital signs: Vital Signs Temp 97.8 F 05/03/23 07:35 Pulse 72 05/03/23 07:35 Resp 20 05/03/23 07:35 BP 137/71 05/03/23 07:35 Pulse Ox 92 L 05/03/23 07:35 FiO2 Intake & Output 05/02/23 05/03/23 05/03/23 18:59 06:59 18:59 Intake Total 438 640 788.75 Output Total 300 500 600 Balance 138 140 188.75 Weight 70.4 kg Intake: Intake, IV Titration 200 100 71.75 Amount Furosemide 100 mg In 200 100 71.75 Sodium Chloride 0.9% 90 ml @ 15 MG/HR 15 mls/hr IV .Q6H40M [facility] Rx#: [id number] Oral 238 540 717 Output: Urine 300 500 600 Other: Voiding Method Toilet Toilet Toilet # Voids 1 1 # Bowel Movements 1 - Labs CBC & Chem 7: 04/28/23 07:13 05/03/23 06:55 Labs: Abnormal Lab Results - Last 24 Hours (Table) 05/02/23 05/02/23 05/02/23 Range/Units 11:22 16:24 19:22 Chloride (98-107) mmol/L BUN (7-17) mg/dL Creatinine (0.52-1.04) mg/dL POC Glucose (mg/dL) 146 H 203 H 263 H (70-110) mg/dL 05/03/23 Range/Units 06:55 Chloride 96 L (98-107) mmol/L BUN 55 H (7-17) mg/dL Creatinine 2.88 H (0.52-1.04) mg/dL POC Glucose (mg/dL) (70-110) mg/dL Assessment and Plan Plan: Assessment: 1. Acute kidney injury secondary to ATN secondary to cardiorenal syndrome. No hydronephrosis noted on kidney ultrasound. Renal function worsened from diuresis. Creatinine 2.88 today. Unknown baseline renal function. UA reveals 1+ protein. Possibly underlying diabetic kidney disease. Further workup outpatient. 2. Acute on chronic systolic CHF with ejection fraction of 40-45% with severe pulmonary hypertension. 3. Volume overload. Starting to improve with diuresis. 4. Right lower extremity cellulitis on antibiotics. 5. Diabetes mellitus. 6. Anemia. Iron deficiency noted. Likely component of underlying chronic kidney disease. s/p IV iron. Also on Aranesp. 7. Benign hypertension. Component of hypervolemia. Stable. 8. Hypokalemia from diuresis. Magnesium normal. Replaced. Better. Plan: Stop Lasix drip. Stop metolazone. Start torsemide 40 mg once daily. Maintain Farxiga. Add maintenance potassium supplementation. 1500 mL fluid restriction. Strict I's and O's. Avoid nephrotoxins. I advised patient to maintain low-salt diet and fluid restriction of less than 50 ounces per day upon discharge. Patient also advised to monitor her weight closely at home and to notify physician if develops worsening edema or gains more than 3 pounds in 1 week duration. Repeat BMP and magnesium level 2-3 days postdischarge. Follow up outpatient in 1 week.
[2023-05-03] MEDS: TORSEMIDE 20 MG TAB PO SCH (11:19)
[2023-05-03] MEDS: POTASSIUM CHLORIDE ER 20 MEQ TAB.ER PO SCH (11:19)
[2023-05-03 11:27] LABS: Glucose,Whole Blood 278 mg/dL (70-110)
--- NOTE | 2023-05-03 12:23 | P.PN ---
Subjective Progress Note Date: 05/03/23 Patient is a very pleasant 57-year-old with a past medical history of type II DM completed by peripheral neuropathy with chronic nonhealing right foot ulcers, hypertension, and hyperlipidemia. She presented to the emergency department on 04/17/23 was directed by PCP for concerns of fluid overload. Chest x-ray in the emergency room was consistent with fluid overload. EKG revealed sinus rhythm short [place] interval a 71 bpm with no other ST/T-wave changes. Laboratory evaluation revealed BUN of 42, creatinine 1.82 (no baseline available for comparison), proBNP 16,800, glucose 147, an unremarkable UA and a negative respiratory viral panel negative. Patient was seen by ID regarding her RLE heel ulcer, and WCx returned polymicrobial. She was initially treated with Unasyn, then switched to Zosyn when cultures returned + for pseudomonas, enterococcus faecalis, artemio, and providencia rettgeri. Bone scan and Foot XR negative for osteomyelitis. Plans for discharge on Augmentin and ciprofloxacin for treatment of infected ulcer. Echo showed EF 40-45%, global hypokinesis, mod MR/TR, with severe pulmonary HTN. Diuresed with Lasix, currently on Lasix drip at 15 ml/hr and Metolazone 5 mg PO QD, fluid restriction. Renal function worsened due to diuresis. Nephrology consulted, possible card iorenal component post diarrhea with no baseline renal function. Renal US negative for hydronephrosis. Patient also with hyperkalemia on 04/19, 04/22 and 04/23. Aldactone discontinued. Patient given a single dose of calcium gluconate 2 g IVPB and sodium bicarb 1 amp. Hyperkalemia resolved. Cardiology recommended outpatient followup for right and left heart cath. 05/01 Patient was seen and examined. Reports slight improvement in her breathing and lower extremity swelling. Currently on Lasix drip at 15 ml/hr. Uoutput 700 cc over the past 24H. Weight 74.843-71.5kg since admission. POC glucose 112-277 over the past 24H. BMP Cl 97, BUN 49, Cr 2.51, glu 131, Ca 8.3. 05/02 Patient was seen and examined. Swelling slowly improving. Currently on Lasix drip at 15 ml/hr. Uoutput 4300 cc over the past 24H. Weight 74.843-70.6kg since admission. POC glucose 156-356 over the past 24H. BMP K 3.3, Cl 96, BUN 52, Cr 2.76, glu 182, Ca 8.2. Mag 2.3. 05/03 Patient was seen and examined. Swelling slowly improving. Nephrology recommends discontinuing Metolazone and Lasix, start Torsemide PO. Uoutput 2000 cc over the past 24H. Weight 74.843-70.4kg since admission. POC glucose 78-263 over the past 24H. BMP Cl 96, BUN 55, Cr 2.88. General: non toxic, no distress, appears at stated age Derm: warm, dry Head: atraumatic, normocephalic, symmetric Eyes: EOMI, no lid lag, anicteric sclera Mouth: no lip lesion, mucus membranes moist Cardiovascular: S1S2 reg, no murmur Lungs: Decreased BS bilateral, no rhonchi, no rales , no accessory muscle use Ext: no gross muscle atrophy, 1+ edema up to thighs, no contractures Neuro: no focal neuro deficits Psych: Alert, oriented, appropriate affect Based on my assessment of this patient, this patient meets a high complexity level of care. Patient has an acute diagnosis of volume overload now acute kidney injury that poses a threat to life or bodily function. Acute kidney injury on suspected underlying chronic kidney disease: Renal US negative for obstruction. Lasix drip and Metolazone DC'd on 05/03, started on Torsemide. Nephrology on board. Acute systolic CHF exacerbation with EF of 40-45%: Coreg 25 mg PO BID. Farxiga 5 mg PO QD. No ACEi or Aldactone due to worsening renal function and hyperkalemia. Strict intake and outtake. Daily weights. HypoK: Replaced. Monitor. Diabetes mellitus with hyperglycemia: Levemir 15 units QD. Novolog per sliding scale. Accuchecks ACHS. Hypoglycemic precautions. Severe pulmonary hypertension: Outpatient right heart cath per Cardiology. Diabetic right foot ulcers with superimposed infection: Continue Zosyn 3.375g IV TID (Day 12). Augmenting and Cipro on discharge? ID on board. Iron Deficiency Anemia superimposed on Anemia of Chronic Disease Resolved: Hyperkalemia Chronic conditions: Hypertension, hyperlipidemia Plans to repeat BMP tomorrow and possible discharge home if renal function stable/improving. CODE STATUS: FULL CODE. DVT Prophylaxis: Lovenox SQ GI Prophylaxis: Protonix IV Designated medical POA if patient is not able to make medical decisions for themselves: Anticipated discharge: Home. I have reviewed the following industry consultant notes: Nephrology. I have reviewed the results of the following tests: BMP I have ordered the following tests: BMP I have discussed the care of this patient with the following independent historian: I have independently interpreted the following test below: I have discussed the management of this patient with the following physician: Objective - Vital Signs Vital signs: Vital Signs Temp 97.8 F 05/03/23 07:35 Pulse 72 05/03/23 07:35 Resp 20 05/03/23 07:35 BP 137/71 05/03/23 07:35 Pulse Ox 92 L 05/03/23 07:35 FiO2 Intake & Output 05/02/23 05/03/23 05/03/23 18:59 06:59 18:59 Intake Total 438 640 240 Output Total 300 500 600 Balance 138 140 -360 Weight 70.4 kg Intake: Intake, IV Titration 200 100 Amount Furosemide 100 mg In 200 100 Sodium Chloride 0.9% 90 ml @ 15 MG/HR 15 mls/hr IV .Q6H40M [facility] Rx#: [id number] Oral 238 540 240 Output: Urine 300 500 600 Other: Voiding Method Toilet Toilet # Voids 1 1 # Bowel Movements 1 - Labs CBC & Chem 7: 04/28/23 07:13 05/03/23 06:55 Labs: Abnormal Lab Results - Last 24 Hours (Table) 05/02/23 05/02/23 05/02/23 Range/Units 11:22 16:24 19:22 Chloride (98-107) mmol/L BUN (7-17) mg/dL Creatinine (0.52-1.04) mg/dL POC Glucose (mg/dL) 146 H 203 H 263 H (70-110) mg/dL 05/03/23 Range/Units 06:55 Chloride 96 L (98-107) mmol/L BUN 55 H (7-17) mg/dL Creatinine 2.88 H (0.52-1.04) mg/dL POC Glucose (mg/dL) (70-110) mg/dL
[2023-05-03 16:36] LABS: Glucose,Whole Blood 228 mg/dL (70-110)
--- NOTE | 2023-05-03 16:55 | P.PN ---
Subjective Progress Note Date: 05/03/23 Principal diagnosis: Reason for follow-up his right heel diabetic foot infection and wound Patient is a 57-year-old female with a past medical history significant for diabetes mellitus hypertension hyperlipidemia patient did have a history of chronic nonhealing wound to the right heel area, patient was sent to the ER for nonhealing of the wound concerning for possible deep infection. On today's evaluation that is05/03/2023, the patient continues to be afebrile, patient is breathing comfortably on room air denies any chest pain shortness of breath or cough no nausea vomiting no abdominal pain lower extremity swelling has improved and denies having any diarrhea or pain to the right heel wound. Patient did have a creatinine of 2.88 no CBC was done today Objective - Vital Signs Vital signs: Vital Signs Temp 97.8 F 05/03/23 07:35 Pulse 66 05/03/23 13:02 Resp 16 05/03/23 11:15 BP 137/67 05/03/23 11:15 Pulse Ox 92 L 05/03/23 11:15 FiO2 Intake & Output 05/02/23 05/03/23 05/03/23 18:59 06:59 18:59 Intake Total 438 640 788.75 Output Total 300 500 600 Balance 138 140 188.75 Weight 70.4 kg Intake: Intake, IV Titration 200 100 71.75 Amount Furosemide 100 mg In 200 100 71.75 Sodium Chloride 0.9% 90 ml @ 15 MG/HR 15 mls/hr IV .Q6H40M [facility] Rx#: [id number] Oral 238 540 717 Output: Urine 300 500 600 Other: Voiding Method Toilet Toilet Toilet # Voids 1 1 # Bowel Movements 1 - Exam GENERAL DESCRIPTION: Middle-aged female lying in bed in no distress RESPIRATORY SYSTEM: Unlabored breathing , decreased breath sounds at bases HEART: S1 S2 regular rate and rhythm , ABDOMEN: Soft , no tenderness EXTREMITIES: Right heel wound is currently dressed - Labs CBC & Chem 7: 04/28/23 07:13 05/03/23 06:55 Labs: Abnormal Lab Results - Last 24 Hours (Table) 05/02/23 05/02/23 05/03/23 Range/Units 16:24 19:22 06:55 Chloride 96 L (98-107) mmol/L BUN 55 H (7-17) mg/dL Creatinine 2.88 H (0.52-1.04) mg/dL POC Glucose (mg/dL) 203 H 263 H (70-110) mg/dL 05/03/23 Range/Units 11:26 Chloride (98-107) mmol/L BUN (7-17) mg/dL Creatinine (0.52-1.04) mg/dL POC Glucose (mg/dL) 278 H (70-110) mg/dL Assessment and Plan (1) Cellulitis Current Visit: Yes Status: Acute Code(s): L03.90 - CELLULITIS, UNSPECIFIED SNOMED Code(s): 851640744 (2) Pressure ulcer of right heel, stage 3 Current Visit: Yes Status: Acute Code(s): L89.613 - PRESSURE ULCER OF RIGHT HEEL, STAGE 3 SNOMED Code(s): 54594740609782 (3) Type 2 diabetes mellitus with foot ulcer Current Visit: Yes Status: Acute Code(s): E11.621 - TYPE 2 DIABETES MELLITUS WITH FOOT ULCER; L97.509 - NON-PRESSURE CHRONIC ULCER OTH PRT UNSP FOOT W UNSP SEVERITY SNOMED Code(s): 792136578 Plan: 1patient presented to hospital with a chronic nonhealing wound to the right heel area which apparently has been there for more than a month failing outpatient oral local treatment, x-ray did not show any bony destruction and the bonescan was negative for osteomyelitis,local culture currently growing Pseudomonas aeruginosa Enterococcus and procidentia. 2patient with a right diabetic foot ulcer culture positive for Pseudomonas Enterococcus with the patient is covered with Zosyn to continue local wound care with Aquacel silver dressing and keep the area of the pressure Dictation was produced using [employer] dictation software. please excuse any grammatical, word or spelling errors. Time with Patient: Less than 30
[2023-05-03 20:18] LABS: Glucose,Whole Blood 273 mg/dL (70-110)
[2023-05-03] MEDS: hydrALAZINE HCL 20 MG/ML 1 ML VIAL IVP PRN (20:46)
[2023-05-04 06:15] LABS: Glucose,Whole Blood 205 mg/dL (70-110)
[2023-05-04] MEDS: INSULIN DETEMIR (LEVEMIR) 100 UNIT/ML SYR SQ SCH (06:34)
[2023-05-04] MEDS: INSULIN ASPART (NovoLOG) 100 UNIT/ML VIAL SQ SCH ×4 (06:35→21:43)
[2023-05-04] MEDS: TORSEMIDE 20 MG TAB PO SCH (09:22)
[2023-05-04] MEDS: GABAPENTIN 300 MG CAP PO SCH ×4 (09:22→21:43)
[2023-05-04] MEDS: ATORVASTATIN 40 MG TAB PO SCH (09:23)
[2023-05-04] MEDS: POTASSIUM CHLORIDE ER 20 MEQ TAB.ER PO SCH (09:23)
[2023-05-04] MEDS: MULTIVITAMINS, THERA 1 EACH TAB PO SCH (09:23)
[2023-05-04] MEDS: SERTRALINE 50 MG TAB PO SCH (09:23)
[2023-05-04] MEDS: DAPAGLIFLOZIN PROPANEDIOL 5 MG TABLET PO SCH (09:23)
[2023-05-04] MEDS: ENOXAPARIN 30 MG/0.3 ML SYRINGE SQ SCH (09:23)
[2023-05-04] MEDS: amLODIPine 5 MG TAB PO SCH (09:23)
[2023-05-04] MEDS: PIPERACILLIN-TAZOBACTAM 3.375 GM in SODIUM CHLORIDE 0.9% 100 ML IVPB SCH ×2 (09:23→21:43)
[2023-05-04] MEDS: carvediloL 12.5 MG TAB PO SCH ×2 (09:23→16:55)
[2023-05-04] MEDS: EZETIMIBE 10 MG TAB PO SCH (09:23)
[2023-05-04 09:35] LABS: African American GFR (CKD) 19 (>60 ml/min/1.73 sqM); Anion Gap 14 mmol/L; Blood Urea Nitrogen 59 mg/dL (7-17); Calcium 8.2 mg/dL (8.4-10.2); Carbon Dioxide 28 mmol/L (22-30); Chloride 95 mmol/L (98-107); Glucose 165 mg/dL (74-99); Magnesium 2.5 mg/dL (1.6-2.3); Non-African American GFR(CKD) 17 (>60 ml/min/1.73 sqM); Potassium 3.5 mmol/L (3.5-5.1); Sodium 137 mmol/L (137-145)
[2023-05-04] MEDS ORDERED: POTASSIUM CHLORIDE ER 20 MEQ TAB.ER PO STA (11:29)
--- NOTE | 2023-05-04 11:31 | P.PN ---
Subjective Patient is seen in follow-up for acute kidney injury. Renal function worsened from diuresis. Lasix drip discontinued 05/03/2023. Now on oral torsemide. Nonoliguric. Vital signs are stable. General: No acute distress. HEENT: Head exam is unremarkable. LUNGS: No audible rhonchi or wheezes. HEART: Rate and Rhythm are regular. ABDOMEN: Nontender. EXTREMITITES: 1+ edema. Objective - Vital Signs Vital signs: Vital Signs Temp 97.9 F 05/04/23 08:15 Pulse 68 05/04/23 08:15 Resp 16 05/04/23 08:15 BP 162/78 05/04/23 08:15 Pulse Ox 92 L 05/04/23 08:15 FiO2 Intake & Output 05/03/23 05/04/23 05/04/23 18:59 06:59 18:59 Intake Total 1508.75 540 Output Total 600 600 Balance 908.75 -60 Weight 71.7 kg Intake: Intake, IV Titration 71.75 Amount Furosemide 100 mg In 71.75 Sodium Chloride 0.9% 90 ml @ 15 MG/HR 15 mls/hr IV .Q6H40M [facility] Rx#: [id number] Oral 1437 540 Output: Urine 600 600 Other: Voiding Method Toilet Toilet # Voids 1 # Bowel Movements 1 - Labs CBC & Chem 7: 04/28/23 07:13 05/04/23 07:40 Labs: Abnormal Lab Results - Last 24 Hours (Table) 05/03/23 05/03/23 05/03/23 Range/Units 11:26 16:34 20:16 Chloride (98-107) mmol/L BUN (7-17) mg/dL Creatinine (0.52-1.04) mg/dL Glucose (74-99) mg/dL POC Glucose (mg/dL) 278 H 228 H 273 H (70-110) mg/dL Calcium (8.4-10.2) mg/dL Magnesium (1.6-2.3) mg/dL 05/04/23 05/04/23 Range/Units 06:13 07:40 Chloride 95 L (98-107) mmol/L BUN 59 H (7-17) mg/dL Creatinine 3.00 H (0.52-1.04) mg/dL Glucose 165 H (74-99) mg/dL POC Glucose (mg/dL) 205 H (70-110) mg/dL Calcium 8.2 L (8.4-10.2) mg/dL Magnesium 2.5 H (1.6-2.3) mg/dL Assessment and Plan Plan: Assessment: 1. Acute kidney injury secondary to ATN secondary to cardiorenal syndrome. No hydronephrosis noted on kidney ultrasound. Renal function worsened from diuresis. Creatinine 3 today. Unknown baseline renal function. UA reveals 1+ protein. Possibly underlying diabetic kidney disease. Further workup outpatient. 2. Acute on chronic systolic CHF with ejection fraction of 40-45% with severe pulmonary hypertension. 3. Volume overload. Starting to improve with diuresis. 4. Right lower extremity cellulitis on antibiotics. 5. Diabetes mellitus. 6. Anemia. Iron deficiency noted. Likely component of underlying chronic kidney disease. s/p IV iron. Also on Aranesp. 7. Benign hypertension. Component of hypervolemia. Stable. 8. Hypokalemia from diuresis. Magnesium normal. On maintenance supplementation. Plan: Maintain torsemide 40 mg once daily. Maintain Farxiga. Maintain potassium supplementation. 1500 mL fluid restriction. Briefly discussed potential need for renal replacement therapy in the near future depending on renal function and volume status. Also discussed with [facility] team. Strict I's and O's. Avoid nephrotoxins. I advised patient to maintain low-salt diet and fluid restriction of less than 50 ounces per day upon discharge. Patient also advised to monitor her weight closely at home and to notify physician if develops worsening edema or gains more than 3 pounds in 1 week duration. Repeat BMP and magnesium level 2-3 days postdischarge. Follow up outpatient in 1 week.
[2023-05-04 11:32] LABS: Glucose,Whole Blood 178 mg/dL (70-110)
[2023-05-04] MEDS: hydrALAZINE HCL 25 MG TAB PO SCH ×3 (12:09→21:43)
--- NOTE | 2023-05-04 14:25 | P.PN ---
Subjective Progress Note Date: 05/04/23 Patient is a very pleasant 57-year-old with a past medical history of type II DM completed by peripheral neuropathy with chronic nonhealing right foot ulcers, hypertension, and hyperlipidemia. She presented to the emergency department on 04/17/23 was directed by PCP for concerns of fluid overload. Chest x-ray in the emergency room was consistent with fluid overload. EKG revealed sinus rhythm short [place] interval a [address] other [address]/T-wave changes. Laboratory evaluation revealed BUN of 42, creatinine 1.82 (no baseline available for comparison), proBNP 16,800, glucose 147, an unremarkable UA and a negative respiratory viral panel negative. Patient was seen by ID regarding her RLE heel ulcer, and WCx returned polymicrobial. She was initially treated with Unasyn, then switched to Zosyn when cultures returned + for pseudomonas, enterococcus faecalis, artemio, and providencia rettgeri. Bone scan and Foot XR negative for osteomyelitis. Plans for discharge on Augmentin and ciprofloxacin for treatment of infected ulcer. Echo showed EF 40-45%, global hypokinesis, mod MR/TR, with severe pulmonary HTN. Diuresed with Lasix, currently on Lasix drip at 15 ml/hr and Metolazone 5 mg PO QD, fluid restriction. Renal function worsened due to diuresis. Nephrology consulted, possible card iorenal component post diarrhea with no baseline renal function. Renal US negative for hydronephrosis. Patient also with hyperkalemia on 04/19, 04/22 and 04/23. Aldactone discontinued. Patient given a single dose of calcium gluconate 2 g IVPB and sodium bicarb 1 amp. Hyperkalemia resolved. Cardiology recommended outpatient followup for right and left heart cath. 05/01 Patient was seen and examined. Reports slight improvement in her breathing and lower extremity swelling. Currently on Lasix drip at 15 ml/hr. Uoutput 700 cc over the past 24H. Weight 74.843-71.5kg since admission. POC glucose 112-277 over the past 24H. BMP Cl 97, BUN 49, Cr 2.51, glu 131, Ca 8.3. 05/02 Patient was seen and examined. Swelling slowly improving. Currently on Lasix drip at 15 ml/hr. Uoutput 4300 cc over the past 24H. Weight 74.843-70.6kg since admission. POC glucose 156-356 over the past 24H. BMP K 3.3, Cl 96, BUN 52, Cr 2.76, glu 182, Ca 8.2. Mag 2.3. 05/03 Patient was seen and examined. Swelling slowly improving. Nephrology recommends discontinuing Metolazone and Lasix, start Torsemide PO. Uoutput 2000 cc over the past 24H. Weight 74.843-70.4kg since admission. POC glucose 78-263 over the past 24H. BMP Cl 96, BUN 55, Cr 2.88. 05/04 Patient was seen and examined. Improved swelling. Discussed with Dr. Zambrano, may need HD if renal function continues to worsen. BNP Cl 95, BUN 59, Cr 3, glu 165. Mag 2.5. General: non toxic, no distress, appears at stated age Derm: warm, dry Head: atraumatic, normocephalic, symmetric Eyes: EOMI, no lid lag, anicteric sclera Mouth: no lip lesion, mucus membranes moist Cardiovascular: S1S2 reg, no murmur Lungs: Decreased BS bilateral, no rhonchi, no rales , no accessory muscle use Ext: no gross muscle atrophy, 1+ edema up to thighs, no contractures Neuro: no focal neuro deficits Psych: Alert, oriented, appropriate affect Based on my assessment of this patient, this patient meets a high complexity level of care. Patient has an acute diagnosis of volume overload now acute kidney injury that poses a threat to life or bodily function. Acute kidney injury on suspected underlying chronic kidney disease: Renal US negative for obstruction. Lasix drip and Metolazone DC'd on 05/03, started on Torsemide. Nephrology on board. Acute systolic CHF exacerbation with EF of 40-45%: Coreg 25 mg PO BID. Farxiga 5 mg PO QD. No ACEi or Aldactone due to worsening renal function and hyperkalemia. Strict intake and outtake. Daily weights. HypoK: Replaced. Monitor. Diabetes mellitus with hyperglycemia: Levemir 15 units QD. Novolog per sliding scale. Accuchecks ACHS. Hypoglycemic precautions. Severe pulmonary hypertension: Outpatient right heart cath per Cardiology. Diabetic right foot ulcers with superimposed infection: Continue Zosyn 3.375g IV TID (Day 13). Augmenting and Cipro on discharge? ID on board. Iron Deficiency Anemia superimposed on Anemia of Chronic Disease Resolved: Hyperkalemia Chronic conditions: Hypertension, hyperlipidemia Plans to repeat BMP tomorrow. CODE STATUS: FULL CODE. DVT Prophylaxis: Lovenox SQ GI Prophylaxis: Protonix IV Designated medical POA if patient is not able to make medical decisions for themselves: Anticipated discharge: Home. I have reviewed the following [employer] commerce consultant notes: Nephrology. I have reviewed the results of the following tests: BMP I have ordered the following tests: BMP I have discussed the care of this patient with the following independent historian: I have independently interpreted the following test below: I have discussed the management of this patient with the following physician: Objective - Vital Signs Vital signs: Vital Signs Temp 97.8 F 05/04/23 12:25 Pulse 65 05/04/23 12:25 Resp 16 05/04/23 12:25 BP 147/77 05/04/23 12:25 Pulse Ox 92 L 05/04/23 12:25 FiO2 Intake & Output 05/03/23 05/04/23 05/04/23 18:59 06:59 18:59 Intake Total 1508.75 540 Output Total 600 600 250 Balance 908.75 -60 -250 Weight 71.7 kg Intake: Intake, IV Titration 71.75 Amount Furosemide 100 mg In 71.75 Sodium Chloride 0.9% 90 ml @ 15 MG/HR 15 mls/hr IV .Q6H40M [facility] Rx#: [id number] Oral 1437 540 Output: Urine 600 600 250 Other: Voiding Method Toilet Toilet # Voids 1 # Bowel Movements 1 1 - Labs CBC & Chem 7: 04/28/23 07:13 05/04/23 07:40 Labs: Abnormal Lab Results - Last 24 Hours (Table) 05/03/23 05/03/23 05/04/23 Range/Units 16:34 20:16 06:13 Chloride (98-107) mmol/L BUN (7-17) mg/dL Creatinine (0.52-1.04) mg/dL Glucose (74-99) mg/dL POC Glucose (mg/dL) 228 H 273 H 205 H (70-110) mg/dL Calcium (8.4-10.2) mg/dL Magnesium (1.6-2.3) mg/dL 05/04/23 05/04/23 Range/Units 07:40 11:30 Chloride 95 L (98-107) mmol/L BUN 59 H (7-17) mg/dL Creatinine 3.00 H (0.52-1.04) mg/dL Glucose 165 H (74-99) mg/dL POC Glucose (mg/dL) 178 H (70-110) mg/dL Calcium 8.2 L (8.4-10.2) mg/dL Magnesium 2.5 H (1.6-2.3) mg/dL
[2023-05-04 16:17] LABS: Glucose,Whole Blood 198 mg/dL (70-110)
[2023-05-04 20:49] LABS: Glucose,Whole Blood 277 mg/dL (70-110)
[2023-05-05 05:56] LABS: Glucose,Whole Blood 181 mg/dL (70-110)
[2023-05-05] MEDS: INSULIN ASPART (NovoLOG) 100 UNIT/ML VIAL SQ SCH ×4 (06:26→20:56)
[2023-05-05] MEDS: INSULIN DETEMIR (LEVEMIR) 100 UNIT/ML SYR SQ SCH (06:26)
[2023-05-05] MEDS: GABAPENTIN 300 MG CAP PO SCH ×4 (09:24→20:55)
[2023-05-05] MEDS: POTASSIUM CHLORIDE ER 20 MEQ TAB.ER PO SCH (09:24)
[2023-05-05] MEDS: SERTRALINE 50 MG TAB PO SCH (09:24)
[2023-05-05] MEDS: EZETIMIBE 10 MG TAB PO SCH (09:24)
[2023-05-05] MEDS: hydrALAZINE HCL 25 MG TAB PO SCH ×3 (09:24→20:55)
[2023-05-05] MEDS: carvediloL 12.5 MG TAB PO SCH ×2 (09:24→16:38)
[2023-05-05] MEDS: ATORVASTATIN 40 MG TAB PO SCH (09:24)
[2023-05-05] MEDS: amLODIPine 5 MG TAB PO SCH (09:24)
[2023-05-05] MEDS: MULTIVITAMINS, THERA 1 EACH TAB PO SCH (09:24)
[2023-05-05] MEDS: ENOXAPARIN 30 MG/0.3 ML SYRINGE SQ SCH (09:25)
[2023-05-05] MEDS: PIPERACILLIN-TAZOBACTAM 3.375 GM in SODIUM CHLORIDE 0.9% 100 ML IVPB SCH ×2 (09:25→19:42)
[2023-05-05] MEDS: TORSEMIDE 20 MG TAB PO SCH (09:25)
[2023-05-05] MEDS: DAPAGLIFLOZIN PROPANEDIOL 5 MG TABLET PO SCH (09:25)
[2023-05-05 10:15] LABS: African American GFR (CKD) 16 (>60 ml/min/1.73 sqM); Anion Gap 16 mmol/L; Blood Urea Nitrogen 61 mg/dL (7-17); Calcium 8.2 mg/dL (8.4-10.2); Carbon Dioxide 25 mmol/L (22-30); Chloride 96 mmol/L (98-107); Glucose 212 mg/dL (74-99); Magnesium 2.6 mg/dL (1.6-2.3); Non-African American GFR(CKD) 14 (>60 ml/min/1.73 sqM); Sodium 137 mmol/L (137-145)
--- NOTE | 2023-05-05 10:51 | P.PN ---
Subjective Patient is seen in follow-up for acute kidney injury. Renal function worsened from diuresis. Lasix drip discontinued 05/03/2023. Now on oral torsemide. Nonoliguric. Creatinine up to 3.39 today. Edema worsening. Vital signs are stable. General: No acute distress. HEENT: Head exam is unremarkable. LUNGS: No audible rhonchi or wheezes. HEART: Rate and Rhythm are regular. ABDOMEN: Nontender. EXTREMITITES: 2+ edema. Objective - Vital Signs Vital signs: Vital Signs Temp 97.9 F 05/05/23 08:15 Pulse 71 05/05/23 08:15 Resp 18 05/05/23 08:15 BP 137/75 05/05/23 08:15 Pulse Ox 91 L 05/05/23 08:15 FiO2 Intake & Output 05/04/23 05/05/23 05/05/23 18:59 06:59 18:59 Intake Total 620 337 0 Output Total 250 Balance 370 337 0 Weight 75.5 kg Intake: IV 80 0.9 80 Intake, IV Titration 100 Amount Piperacillin-Tazobactam 3 100 .375 gm In Sodium Chloride 0.9% 100 ml @ 25 mls/hr IVPB Q12HR [facility] Rx #:[id number] Oral 540 237 0 Output: Urine 250 Other: Voiding Method Toilet # Voids 0 # Bowel Movements 1 - Labs CBC & Chem 7: 04/28/23 07:13 05/05/23 09:05 Labs: Abnormal Lab Results - Last 24 Hours (Table) 05/04/23 05/04/23 05/04/23 Range/Units 11:30 16:13 20:47 Chloride (98-107) mmol/L BUN (7-17) mg/dL Creatinine (0.52-1.04) mg/dL Glucose (74-99) mg/dL POC Glucose (mg/dL) 178 H 198 H 277 H (70-110) mg/dL Calcium (8.4-10.2) mg/dL Magnesium (1.6-2.3) mg/dL 05/05/23 05/05/23 Range/Units 05:54 09:05 Chloride 96 L (98-107) mmol/L BUN 61 H (7-17) mg/dL Creatinine 3.39 H (0.52-1.04) mg/dL Glucose 212 H (74-99) mg/dL POC Glucose (mg/dL) 181 H (70-110) mg/dL Calcium 8.2 L (8.4-10.2) mg/dL Magnesium 2.6 H (1.6-2.3) mg/dL Assessment and Plan Plan: Assessment: 1. Acute kidney injury secondary to ATN secondary to cardiorenal syndrome. No hydronephrosis noted on kidney ultrasound. Renal function worsened from diuresis. Creatinine up to 3.39 today. Unknown baseline renal function. UA reveals 1+ protein. Possibly underlying diabetic kidney disease. Further workup outpatient. 2. Acute on chronic systolic CHF with ejection fraction of 40-45% with moderate mitral and tricuspid regurgitation and severe pulmonary hypertension. 3. Volume overload. Starting to worsen. 4. Right lower extremity cellulitis on antibiotics. 5. Diabetes mellitus. 6. Anemia. Iron deficiency noted. Likely component of underlying chronic kidney disease. s/p IV iron. Also on Aranesp. 7. Benign hypertension. Component of hypervolemia. Stable. 8. Hypokalemia from diuresis. Magnesium normal. On maintenance supplementation. Improved. Plan: Stop torsemide. Resume IV Lasix 60 mg twice daily. Metolazone 5 mg once daily. Stop Farxiga due to depressed GFR. Maintain potassium supplementation. 1500 mL fluid restriction. Strict I's and O's. Avoid nephrotoxins. Again discussed need for renal replacement therapy due to hypervolemia. Patient agreeable. Start IV Lasix and plan for renal replacement therapy tomorrow if no improvement in volume status.
--- NOTE | 2023-05-05 11:49 | P.PN ---
Subjective Progress Note Date: 05/05/23 Patient is a very pleasant 57-year-old with a past medical history of type II DM completed by peripheral neuropathy with chronic nonhealing right foot ulcers, hypertension, and hyperlipidemia. She presented to the emergency department on 04/17/23 was directed by PCP for concerns of fluid overload. Chest x-ray in the emergency room was consistent with fluid overload. EKG revealed sinus rhythm short [place] interval a 71 bpm with no other ST/T-wave changes. Laboratory evaluation revealed BUN of 42, creatinine 1.82 (no baseline available for comparison), proBNP 16,800, glucose 147, an unremarkable UA and a negative respiratory viral panel negative. Patient was seen by ID regarding her RLE heel ulcer, and WCx returned polymicrobial. She was initially treated with Unasyn, then switched to Zosyn when cultures returned + for pseudomonas, enterococcus faecalis, artemio, and providencia rettgeri. Bone scan and Foot XR negative for osteomyelitis. Plans for discharge on Augmentin and ciprofloxacin for treatment of infected ulcer. Echo showed EF 40-45%, global hypokinesis, mod MR/TR, with severe pulmonary HTN. Diuresed with Lasix, currently on Lasix drip at 15 ml/hr and Metolazone 5 mg PO QD, fluid restriction. Renal function worsened due to diuresis. Nephrology consulted, possible card iorenal component post diarrhea with no baseline renal function. Renal US negative for hydronephrosis. Patient also with hyperkalemia on 04/19, 04/22 and 04/23. Aldactone discontinued. Patient given a single dose of calcium gluconate 2 g IVPB and sodium bicarb 1 amp. Hyperkalemia resolved. Cardiology recommended outpatient followup for right and left heart cath. 05/01 Patient was seen and examined. Reports slight improvement in her breathing and lower extremity swelling. Currently on Lasix drip at 15 ml/hr. Uoutput 700 cc over the past 24H. Weight 74.843-71.5kg since admission. POC glucose 112-277 over the past 24H. BMP Cl 97, BUN 49, Cr 2.51, glu 131, Ca 8.3. 05/02 Patient was seen and examined. Swelling slowly improving. Currently on Lasix drip at 15 ml/hr. Uoutput 4300 cc over the past 24H. Weight 74.843-70.6kg since admission. POC glucose 156-356 over the past 24H. BMP K 3.3, Cl 96, BUN 52, Cr 2.76, glu 182, Ca 8.2. Mag 2.3. 05/03 Patient was seen and examined. Swelling slowly improving. Nephrology recommends discontinuing Metolazone and Lasix, start Torsemide PO. Uoutput 2000 cc over the past 24H. Weight 74.843-70.4kg since admission. POC glucose 78-263 over the past 24H. BMP Cl 96, BUN 55, Cr 2.88. 05/04 Patient was seen and examined. Improved swelling. Discussed with Dr. Zambrano, may need HD if renal function continues to worsen. BNP Cl 95, BUN 59, Cr 3, glu 165. Mag 2.5. 05/05 Patient was seen and examined. No acute events overnight. BMP Cl 96, BUN 61, Cr 3.39, glu 121, Ca 8.2. Mag 2.6. Discussed with Dr. Zambrano, switch Torsemide PO to Lasix 60 mg IV BID, renal replacement therapy tomorrow if no improvement in volume status. General: non toxic, no distress, appears at stated age Derm: warm, dry Head: atraumatic, normocephalic, symmetric Eyes: EOMI, no lid lag, anicteric sclera Mouth: no lip lesion, mucus membranes moist Cardiovascular: S1S2 reg, no murmur Lungs: Decreased BS bilateral, no rhonchi, no rales , no accessory muscle use Ext: no gross muscle atrophy, 1+ edema up to thighs, no contractures Neuro: no focal neuro deficits Psych: Alert, oriented, appropriate affect Based on my assessment of this patient, this patient meets a high complexity level of care. Patient has an acute diagnosis of volume overload now acute kidney injury that poses a threat to life or bodily function. Acute kidney injury on suspected underlying chronic kidney disease: Renal US negative for obstruction. Lasix drip and Metolazone DC'd on 05/03, started on Torsemide 05/03-05/05, switched to Lasix 60 mg IV BID 05/05. Nephrology on board. Acute systolic CHF exacerbation with EF of 40-45%: Coreg 25 mg PO BID. Farxiga 5 mg PO QD. No ACEi or Aldactone due to worsening renal function and hyperkalemia. Strict intake and outtake. Daily weights. HypoK: Replaced. Monitor. Diabetes mellitus with hyperglycemia: Levemir 15 units QD. Novolog per sliding scale. Accuchecks ACHS. Hypoglycemic precautions. Severe pulmonary hypertension: Outpatient right heart cath per Cardiology. Diabetic right foot ulcers with superimposed infection: Continue Zosyn 3.375g IV BID (Day 14). Augmenting and Cipro on discharge? ID on board. Iron Deficiency Anemia superimposed on Anemia of Chronic Disease Resolved: Hyperkalemia Chronic conditions: Hypertension, hyperlipidemia Plans to repeat BMP tomorrow. CODE STATUS: FULL CODE. DVT Prophylaxis: Lovenox SQ GI Prophylaxis: Protonix IV Designated medical POA if patient is not able to make medical decisions for themselves: Anticipated discharge: Home. I have reviewed the following databases software consultant notes: Nephrology. I have reviewed the results of the following tests: BMP I have ordered the following tests: BMP I have discussed the care of this patient with the following independent historian: I have independently interpreted the following test below: I have discussed the management of this patient with the following physician: Discussed with Dr. Zambrano. Objective - Vital Signs Vital signs: Vital Signs Temp 97.8 F 05/05/23 03:52 Pulse 64 05/05/23 03:52 Resp 18 05/05/23 03:52 BP 137/72 05/05/23 03:52 Pulse Ox 93 L 05/05/23 03:52 FiO2 Intake & Output 05/04/23 05/05/23 05/05/23 18:59 06:59 18:59 Intake Total 620 337 0 Output Total 250 Balance 370 337 0 Weight 75.5 kg Intake: IV 80 0.9 80 Intake, IV Titration 100 Amount Piperacillin-Tazobactam 3 100 .375 gm In Sodium Chloride 0.9% 100 ml @ 25 mls/hr IVPB Q12HR [facility] Rx #:[id number] Oral 540 237 0 Output: Urine 250 Other: Voiding Method Toilet # Voids 0 # Bowel Movements 1 - Labs CBC & Chem 7: 04/28/23 07:13 05/05/23 09:05 Labs: Abnormal Lab Results - Last 24 Hours (Table) 05/04/23 05/04/23 05/04/23 Range/Units 07:40 11:30 16:13 Chloride 95 L (98-107) mmol/L BUN 59 H (7-17) mg/dL Creatinine 3.00 H (0.52-1.04) mg/dL Glucose 165 H (74-99) mg/dL POC Glucose (mg/dL) 178 H 198 H (70-110) mg/dL Calcium 8.2 L (8.4-10.2) mg/dL Magnesium 2.5 H (1.6-2.3) mg/dL 05/04/23 05/05/23 Range/Units 20:47 05:54 Chloride (98-107) mmol/L BUN (7-17) mg/dL Creatinine (0.52-1.04) mg/dL Glucose (74-99) mg/dL POC Glucose (mg/dL) 277 H 181 H (70-110) mg/dL Calcium (8.4-10.2) mg/dL Magnesium (1.6-2.3) mg/dL
[2023-05-05 12:12] LABS: Glucose,Whole Blood 151 mg/dL (70-110)
[2023-05-05] MEDS: FUROSEMIDE 10 MG/ML 10 ML VIAL IV SCH ×2 (12:28→19:42)
[2023-05-05] MEDS: metOLazone 5 MG TAB PO SCH (12:29)
[2023-05-05 16:29] LABS: Glucose,Whole Blood 194 mg/dL (70-110)
--- NOTE | 2023-05-05 16:58 | P.PN ---
Subjective Progress Note Date: 05/04/23 Principal diagnosis: Reason for follow-up his right heel diabetic foot infection and wound Patient is a 57-year-old female with a past medical history significant for diabetes mellitus hypertension hyperlipidemia patient did have a history of chronic nonhealing wound to the right heel area, patient was sent to the ER for nonhealing of the wound concerning for possible deep infection. On today's evaluation that is 05/04/2023 the patient remains to be afebrile the patient is breathing comfortably on room air without need for supplemental oxygen patient has any chest pain shortness of breath or cough no nausea vomiting no abdominal pain lower extremity swelling decreasing per patient denies pain to the right heel wound. Patient creatinine is 3.0 no CBC was done today Objective - Vital Signs Vital signs: Vital Signs Temp 98 F 05/04/23 04:00 Pulse 71 05/04/23 04:00 Resp 16 05/04/23 04:00 BP 135/66 05/04/23 04:00 Pulse Ox 91 L 05/04/23 04:00 FiO2 Intake & Output 05/03/23 05/04/23 05/04/23 18:59 06:59 18:59 Intake Total 1508.75 540 Output Total 600 600 Balance 908.75 -60 Weight 71.7 kg Intake: Intake, IV Titration 71.75 Amount Furosemide 100 mg In 71.75 Sodium Chloride 0.9% 90 ml @ 15 MG/HR 15 mls/hr IV .Q6H40M [facility] Rx#: [id number] Oral 1437 540 Output: Urine 600 600 Other: Voiding Method Toilet Toilet # Voids 1 # Bowel Movements 1 - Exam GENERAL DESCRIPTION: Middle-aged female lying in bed in no distress RESPIRATORY SYSTEM: Unlabored breathing , decreased breath sounds at bases HEART: S1 S2 regular rate and rhythm , ABDOMEN: Soft , no tenderness EXTREMITIES: Right heel wound is currently dressed - Labs CBC & Chem 7: 04/28/23 07:13 05/05/23 09:05 Labs: Abnormal Lab Results - Last 24 Hours (Table) 05/03/23 05/03/23 05/03/23 Range/Units 06:55 11:26 16:34 Chloride 96 L (98-107) mmol/L BUN 55 H (7-17) mg/dL Creatinine 2.88 H (0.52-1.04) mg/dL POC Glucose (mg/dL) 278 H 228 H (70-110) mg/dL 05/03/23 05/04/23 Range/Units 20:16 06:13 Chloride (98-107) mmol/L BUN (7-17) mg/dL Creatinine (0.52-1.04) mg/dL POC Glucose (mg/dL) 273 H 205 H (70-110) mg/dL Assessment and Plan (1) Cellulitis Current Visit: Yes Status: Acute Code(s): L03.90 - CELLULITIS, UNSPECIFIED SNOMED Code(s): 834744639 (2) Pressure ulcer of right heel, stage 3 Current Visit: Yes Status: Acute Code(s): L89.613 - PRESSURE ULCER OF RIGHT HEEL, STAGE 3 SNOMED Code(s): 84241244755720 (3) Type 2 diabetes mellitus with foot ulcer Current Visit: Yes Status: Acute Code(s): E11.621 - TYPE 2 DIABETES MELLITUS WITH FOOT ULCER; L97.509 - NON-PRESSURE CHRONIC ULCER OTH PRT UNSP FOOT W UNSP SEVERITY SNOMED Code(s): 952251198 Plan: 1patient presented to hospital with a chronic nonhealing wound to the right heel area which apparently has been there for more than a month failing outpa tient oral local treatment, x-ray did not show any bony destruction and the bonescan was negative for osteomyelitis,local culture currently growing Pseudomonas aeruginosa Enterococcus and procidentia. 2patient with right diabetic foot ulcer and diabetic foot wound infection patient to continue with the [facility] local wound care with Aquacel silver dressing Dictation was produced using [employer] dictation software. please excuse any grammatical, word or spelling errors. Time with Patient: Less than 30
--- NOTE | 2023-05-05 17:00 | P.PN ---
Subjective Progress Note Date: 05/05/23 Principal diagnosis: Reason for follow-up his right heel diabetic foot infection and wound Patient is a 57-year-old female with a past medical history significant for diabetes mellitus hypertension hyperlipidemia patient did have a history of chronic nonhealing wound to the right heel area, patient was sent to the ER for nonhealing of the wound concerning for possible deep infection. On today's evaluation that is 05/05/2023 the patient denies having any fever or any chills the patient is breathing comfortably on room air patient denies any chest pain shortness of breath or cough, the patient denies any abdominal pain no nausea vomiting or diarrhea and denies pain to the right heel wound. Patient did have a creatinine of 3.39 today Objective - Vital Signs Vital signs: Vital Signs Temp 98.2 F 05/05/23 11:30 Pulse 66 05/05/23 11:30 Resp 18 05/05/23 11:30 BP 129/73 05/05/23 11:30 Pulse Ox 93 L 05/05/23 11:30 FiO2 Intake & Output 05/04/23 05/05/23 05/05/23 18:59 06:59 18:59 Intake Total 620 337 100 Output Total 250 Balance 370 337 100 Weight 75.5 kg Intake: IV 80 0.9 80 Intake, IV Titration 100 100 Amount Piperacillin-Tazobactam 3 100 100 .375 gm In Sodium Chloride 0.9% 100 ml @ 25 mls/hr IVPB Q12HR [facility] Rx #:[id number] Oral 540 237 0 Output: Urine 250 Other: Voiding Method Toilet # Voids 0 # Bowel Movements 1 - Exam GENERAL DESCRIPTION: Middle-aged female lying in bed in no distress RESPIRATORY SYSTEM: Unlabored breathing , decreased breath sounds at bases HEART: S1 S2 regular rate and rhythm , ABDOMEN: Soft , no tenderness EXTREMITIES: Right heel wound is currently dressed - Labs CBC & Chem 7: 04/28/23 07:13 05/05/23 09:05 Labs: Abnormal Lab Results - Last 24 Hours (Table) 05/04/23 05/05/23 05/05/23 Range/Units 20:47 05:54 09:05 Chloride 96 L (98-107) mmol/L BUN 61 H (7-17) mg/dL Creatinine 3.39 H (0.52-1.04) mg/dL Glucose 212 H (74-99) mg/dL POC Glucose (mg/dL) 277 H 181 H (70-110) mg/dL Calcium 8.2 L (8.4-10.2) mg/dL Magnesium 2.6 H (1.6-2.3) mg/dL 05/05/23 05/05/23 Range/Units 12:09 16:26 Chloride (98-107) mmol/L BUN (7-17) mg/dL Creatinine (0.52-1.04) mg/dL Glucose (74-99) mg/dL POC Glucose (mg/dL) 151 H 194 H (70-110) mg/dL Calcium (8.4-10.2) mg/dL Magnesium (1.6-2.3) mg/dL Assessment and Plan (1) Cellulitis Current Visit: Yes Status: Acute Code(s): L03.90 - CELLULITIS, UNSPECIFIED SNOMED Code(s): 226671870 (2) Pressure ulcer of right heel, stage 3 Current Visit: Yes Status: Acute Code(s): L89.613 - PRESSURE ULCER OF RIGHT HEEL, STAGE 3 SNOMED Code(s): 79007325752015 (3) Type 2 diabetes mellitus with foot ulcer Current Visit: Yes Status: Acute Code(s): E11.621 - TYPE 2 DIABETES MELLITUS WITH FOOT ULCER; L97.509 - NON-PRESSURE CHRONIC ULCER OTH PRT UNSP FOOT W UNSP SEVERITY SNOMED Code(s): 610834522 Plan: 1patient presented to hospital with a chronic nonhealing wound to the right heel area which apparently has been there for more than a month failing outpatient oral local treatment, x-ray did not show any bony destruction and the bonescan was negative for osteomyelitis,local culture currently growing Pseudomonas aeruginosa Enterococcus and procidentia. 2patient with infected right heel diabetic foot ulcer culture positive multiple pathogen she is covered with Zosyn and local wound care with Aquacel silver dressing keep the area of the pressure Dictation was produced using [employer] dictation software. please excuse any grammatical, word or spelling errors. Time with Patient: Less than 30
[2023-05-05 20:26] LABS: Glucose,Whole Blood 271 mg/dL (70-110)
[2023-05-06 06:16] LABS: Glucose,Whole Blood 163 mg/dL (70-110)
[2023-05-06] MEDS: INSULIN DETEMIR (LEVEMIR) 100 UNIT/ML SYR SQ SCH (06:46)
[2023-05-06] MEDS: INSULIN ASPART (NovoLOG) 100 UNIT/ML VIAL SQ SCH ×4 (06:47→21:03)
[2023-05-06 09:46] LABS: Anisocytosis Slight; Basophils % (A) 1 %; Eosinophils # (A) 0.2 k/uL (0-0.7); Eosinophils % (A) 4 %; HCT 29.6 % (34.0-46.0); Hypochromasia Marked; Lymphocytes # (A) 0.5 k/uL (1.0-4.8); Lymphocytes % (A) 14 %; MCHC 30.4 g/dL (31.0-37.0); MCV 85.3 fL (80.0-100.0); Mean Platelet Volume 10.8; Monocytes # (A) 0.3 k/uL (0-1.0); Monocytes % (A) 8 %; Neutrophils # (A) 2.8 k/uL (1.3-7.7); Neutrophils % (A) 69 %; Platelet Count 171 k/uL (150-450); RBC 3.46 m/uL (3.80-5.40); RDW 16.7 % (11.5-15.5)
[2023-05-06 10:08] LABS: African American GFR (CKD) 15 (>60 ml/min/1.73 sqM); Anion Gap 16 mmol/L; Blood Urea Nitrogen 63 mg/dL (7-17); Calcium 8.5 mg/dL (8.4-10.2); Carbon Dioxide 26 mmol/L (22-30); Chloride 95 mmol/L (98-107); Glucose 132 mg/dL (74-99); Magnesium 2.7 mg/dL (1.6-2.3); Non-African American GFR(CKD) 13 (>60 ml/min/1.73 sqM); Sodium 137 mmol/L (137-145)
[2023-05-06] MEDS: ENOXAPARIN 30 MG/0.3 ML SYRINGE SQ SCH (10:20)
[2023-05-06] MEDS: ATORVASTATIN 40 MG TAB PO SCH (10:21)
[2023-05-06] MEDS: FUROSEMIDE 10 MG/ML 10 ML VIAL IV SCH ×2 (10:21→21:09)
[2023-05-06] MEDS: metOLazone 5 MG TAB PO SCH (10:21)
[2023-05-06] MEDS: GABAPENTIN 300 MG CAP PO SCH ×4 (10:21→21:09)
[2023-05-06] MEDS: carvediloL 12.5 MG TAB PO SCH ×2 (10:21→16:55)
[2023-05-06] MEDS: MULTIVITAMINS, THERA 1 EACH TAB PO SCH (10:21)
[2023-05-06] MEDS: POTASSIUM CHLORIDE ER 20 MEQ TAB.ER PO SCH (10:21)
[2023-05-06] MEDS: hydrALAZINE HCL 25 MG TAB PO SCH ×3 (10:21→21:09)
[2023-05-06] MEDS: EZETIMIBE 10 MG TAB PO SCH (10:21)
[2023-05-06] MEDS: amLODIPine 5 MG TAB PO SCH (10:21)
[2023-05-06] MEDS: PIPERACILLIN-TAZOBACTAM 3.375 GM in SODIUM CHLORIDE 0.9% 100 ML IVPB SCH ×2 (10:22→21:10)
[2023-05-06] MEDS: SERTRALINE 50 MG TAB PO SCH (11:34)
[2023-05-06] MEDS: ONDANSETRON 4 MG/2 ML VIAL IVP PRN ×2 (11:36→19:52)
--- NOTE | 2023-05-06 11:39 | P.PN ---
Subjective Progress Note Date: 05/06/23 57-year-old with a past medical history of type II DM complicated by peripheral neuropathy with chronic nonhealing right foot ulcers, hypertension, and hyperlipidemia. She presented to the emergency department on 04/17/23 was directed by PCP for concerns of fluid overload. Also with right heel ulcer. Chest x-ray in the emergency room was consistent with fluid overload. EKG revealed sinus rhythm short OK interval a 71 bpm with no other ST/T-wave changes. Laboratory evaluation revealed BUN of 42, creatinine 1.82 (no baseline available for comparison), proBNP 16,800, glucose 147, an unremarkable UA and a negative respiratory viral panel negative. Patient was seen by ID regarding her RLE heel ulcer, and WCx returned polymicrobial. She was initially treated with Unasyn from 04/18-04/21, then switched to Zosyn when cultures returned + for pseudomonas, enterococcus faecalis, artemio, and providencia rettgeri. Bone scan and Foot XR negative for osteomyelitis. Plans for discharge on Augmentin and ciprofloxacin for treatment of infected ulcer. Echo showed EF 40-45%, global hypokinesis, mod MR/TR, with severe pulmonary HTN. Cardiology recommended outpatient followup for right and left heart cath. Renal function worsened due to diuresis. Nephrology consulted, possible cardiorenal component post diarrhea with no baseline renal function. Renal US negative for hydronephrosis. Patient also with hyperkalemia on 04/19, 04/22 and 04/23. Aldactone discontinued. Patient given a single dose of calcium gluconate 2 g IVPB and sodium bicarb 1 amp, hyperkalemia resolved. Diuresed with Lasix drip and Metolazone PO from 04/28-05/03, briefly switched to Torsemide PO from 05/03-05/05 then to Lasix 60 mg IV BID due to poor urine output. Discussed with Dr. Zambrano over the weekend, she may need hemodialysis if renal function continued to worsen on Saturday. 05/06 Patient was seen and examined. No acute events overnight. Persistent swelling to the bilateral thighs. CBC Hg 9, Hct 29.6. BMP Cl 95, BUN 63, Cr 3.69, glu 132. Mag 2.7. Patient would like to discuss with Nephrology prior to initiating hemodialysis. General: non toxic, no distress, appears at stated age Derm: warm, dry Head: atraumatic, normocephalic, symmetric Eyes: EOMI, no lid lag, anicteric sclera Mouth: no lip lesion, mucus membranes moist Cardiovascular: S1S2 reg, no murmur Lungs: Decreased BS bilateral, no rhonchi, no rales , no accessory muscle use Ext: no gross muscle atrophy, 1+ edema up to thighs, no contractures Neuro: no focal neuro deficits Psych: Alert, oriented, appropriate affect Based on my assessment of this patient, this patient meets a high complexity level of care. Patient has an acute diagnosis of volume overload now acute kidney injury that poses a threat to life or bodily function. Acute kidney injury on suspected underlying chronic kidney disease: Renal US negative for obstruction. Lasix drip and Metolazone DC'd on 05/03, started on Torsemide 05/03-05/05, switched to Lasix 60 mg IV BID 05/05. Nephrology on board. Acute systolic CHF exacerbation with EF of 40-45%: Coreg 25 mg PO BID. Farxiga 5 mg PO QD. Lasix as above. No ACEi or Aldactone due to worsening renal function and hyperkalemia. Strict intake and outtake. Daily weights. Diabetes mellitus with hyperglycemia: Levemir 15 units QD. Novolog per sliding scale. Accuchecks ACHS. Hypoglycemic precautions. Severe pulmonary hypertension: Outpatient right heart cath per Cardiology. Diabetic right foot ulcers with superimposed infection: Continue Zosyn 3.375g IV BID (Day 15). Augmenting and Cipro on discharge? ID on board. Iron Deficiency Anemia superimposed on Anemia of Chronic Disease Resolved: Hyperkalemia, Hypokalemia Chronic conditions: Hypertension, hyperlipidemia CODE STATUS: FULL CODE. DVT Prophylaxis: Lovenox SQ GI Prophylaxis: Protonix IV Designated medical POA if patient is not able to make medical decisions for themselves: Anticipated discharge: Home. I have reviewed the following car sales consultant notes: Nephrology. I have reviewed the results of the following tests: CBC, BMP I have ordered the following tests: BMP I have discussed the care of this patient with the following independent historian: I have independently interpreted the following test below: I have discussed the management of this patient with the following physician: Discussed with Dr. Nunez. Objective - Vital Signs Vital signs: Vital Signs Temp 97.4 F L 05/06/23 08:29 Pulse 66 05/06/23 08:29 Resp 16 05/06/23 08:29 BP 151/77 05/06/23 08:29 Pulse Ox 94 L 05/06/23 08:29 FiO2 Intake & Output 05/05/23 05/06/23 05/06/23 18:59 06:59 18:59 Intake Total 720 0 120 Output Total 100 Balance 720 0 20 Weight 76.5 kg Intake: IV 80 0.9 80 Intake, IV Titration 100 Amount Piperacillin-Tazobactam 3 100 .375 gm In Sodium Chloride 0.9% 100 ml @ 25 mls/hr IVPB Q12HR [facility] Rx #:[id number] Oral 540 0 120 Output: Urine 100 Other: Voiding Method Toilet # Voids 2 0 # Bowel Movements 1 0 - Labs CBC & Chem 7: 05/06/23 07:31 05/06/23 07:31 Labs: Abnormal Lab Results - Last 24 Hours (Table) 05/05/23 05/05/23 05/05/23 Range/Units 12:09 16:26 20:23 RBC (3.80-5.40) m/uL Hgb (11.4-16.0) gm/dL Hct (34.0-46.0) % MCHC (31.0-37.0) g/dL RDW (11.5-15.5) % Lymphocytes # (1.0-4.8) k/uL Chloride (98-107) mmol/L BUN (7-17) mg/dL Creatinine (0.52-1.04) mg/dL Glucose (74-99) mg/dL POC Glucose (mg/dL) 151 H 194 H 271 H (70-110) mg/dL Magnesium (1.6-2.3) mg/dL 05/06/23 05/06/23 05/06/23 Range/Units 06:12 07:31 07:31 RBC 3.46 L (3.80-5.40) m/uL Hgb 9.0 L (11.4-16.0) gm/dL Hct 29.6 L (34.0-46.0) % MCHC 30.4 L (31.0-37.0) g/dL RDW 16.7 H (11.5-15.5) % Lymphocytes # 0.5 L (1.0-4.8) k/uL Chloride 95 L (98-107) mmol/L BUN 63 H (7-17) mg/dL Creatinine 3.69 H (0.52-1.04) mg/dL Glucose 132 H (74-99) mg/dL POC Glucose (mg/dL) 163 H (70-110) mg/dL Magnesium 2.7 H (1.6-2.3) mg/dL
[2023-05-06 12:05] LABS: Glucose,Whole Blood 119 mg/dL (70-110)
--- NOTE | 2023-05-06 12:45 | P.GSCN ---
History of Present Illness History of present illness: 57-year-old white female I was consulted for placement of dialysis catheter. Patient kidney functions are deteriorating creatinine is high patient had a dialysis many years ago in the past Medical history history of diabetes hypertension chronic kidney disease congestive heart failure and graft on examination neck is supple no bruit appreciated Chest is clear good and both lungs first second sound present abdomen soft nontender femorals are 1+ bilateral patient has a wound on the heel both lower extremity is covered by the dressing under care of infectious disease plan is placement of a dialysis catheter risk and complication discussed we will place today Past Medical History Past Medical History: Diabetes Mellitus, Hyperlipidemia, Hypertension Additional Past Medical History / Comment(s): restless leg, neurothopy, 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" History of Any Multi-Drug Resistant Organisms: None Reported Past Surgical History: Orthopedic Surgery, Tonsillectomy Additional Past Surgical History / Comment(s): "plate in left leg to straighten leg as a child" - plate removed, right total hip replacement due to a fracture from a fall Past Anesthesia/Blood Transfusion Reactions: No Reported Reaction Past Psychological History: No Psychological Hx Reported Smoking Status: Vaper Past Alcohol Use History: None Reported Past Drug Use History: None Reported Medications and Allergies Home Medications Medication Instructions Recorded Confirmed Type Atorvastatin [Lipitor] 40 mg PO DAILY 04/17/23 04/17/23 History Dapagliflozin Propanediol [Farxiga] 5 mg PO DAILY 04/17/23 04/17/23 History Diclofenac Sodium [Voltaren] 75 mg PO BID 04/17/23 04/17/23 History Ezetimibe [Zetia] 10 mg PO DAILY 04/17/23 04/17/23 History Gabapentin 600 mg PO QID 04/17/23 04/17/23 History Multivitamins, Thera [Multivitamin 1 tab PO DAILY 04/17/23 04/17/23 History (formulary)] Sertraline [Zoloft] 50 mg PO DIRECTED 04/17/23 04/17/23 History Torsemide [Demadex] 20 mg PO DAILY 04/17/23 04/17/23 History carvediloL 12.5 mg PO BID@0900,1700 04/17/23 04/17/23 History rOPINIRole HCL [Requip] 1 mg PO HS 04/17/23 04/17/23 History Allergies Allergy/AdvReac Type Severity Reaction Status Date / Time No Known Allergies Allergy Verified 04/17/23 19:32 Surgical - Exam Vital Signs Temp Pulse Resp BP Pulse Ox 97.4 F L 72 16 133/82 100 04/17/23 14:18 04/17/23 14:18 04/17/23 14:18 04/17/23 14:18 04/17/23 14:18 Results - Labs 05/06/23 07:31 05/06/23 07:31 Abnormal Lab Results - Last 24 Hours (Table) 05/05/23 05/05/23 05/06/23 Range/Units 16:26 20:23 06:12 RBC (3.80-5.40) m/uL Hgb (11.4-16.0) gm/dL Hct (34.0-46.0) % MCHC (31.0-37.0) g/dL RDW (11.5-15.5) % Lymphocytes # (1.0-4.8) k/uL Chloride (98-107) mmol/L BUN (7-17) mg/dL Creatinine (0.52-1.04) mg/dL Glucose (74-99) mg/dL POC Glucose (mg/dL) 194 H 271 H 163 H (70-110) mg/dL Magnesium (1.6-2.3) mg/dL 05/06/23 05/06/23 05/06/23 Range/Units 07:31 07:31 12:02 RBC 3.46 L (3.80-5.40) m/uL Hgb 9.0 L (11.4-16.0) gm/dL Hct 29.6 L (34.0-46.0) % MCHC 30.4 L (31.0-37.0) g/dL RDW 16.7 H (11.5-15.5) % Lymphocytes # 0.5 L (1.0-4.8) k/uL Chloride 95 L (98-107) mmol/L BUN 63 H (7-17) mg/dL Creatinine 3.69 H (0.52-1.04) mg/dL Glucose 132 H (74-99) mg/dL POC Glucose (mg/dL) 119 H (70-110) mg/dL Magnesium 2.7 H (1.6-2.3) mg/dL Diabetes panel 05/06/23 Range/Units 07:31 Sodium 137 (137-145) mmol/L Potassium 4.0 (3.5-5.1) mmol/L Chloride 95 L (98-107) mmol/L Carbon Dioxide 26 (22-30) mmol/L BUN 63 H (7-17) mg/dL Creatinine 3.69 H (0.52-1.04) mg/dL Glucose 132 H (74-99) mg/dL Calcium 8.5 (8.4-10.2) mg/dL Calcium panel 05/06/23 Range/Units 07:31 Calcium 8.5 (8.4-10.2) mg/dL Pituitary panel 05/06/23 Range/Units 07:31 Sodium 137 (137-145) mmol/L Potassium 4.0 (3.5-5.1) mmol/L Chloride 95 L (98-107) mmol/L Carbon Dioxide 26 (22-30) mmol/L BUN 63 H (7-17) mg/dL Creatinine 3.69 H (0.52-1.04) mg/dL Glucose 132 H (74-99) mg/dL Calcium 8.5 (8.4-10.2) mg/dL Adrenal panel 05/06/23 Range/Units 07:31 Sodium 137 (137-145) mmol/L Potassium 4.0 (3.5-5.1) mmol/L Chloride 95 L (98-107) mmol/L Carbon Dioxide 26 (22-30) mmol/L BUN 63 H (7-17) mg/dL Creatinine 3.69 H (0.52-1.04) mg/dL Glucose 132 H (74-99) mg/dL Calcium 8.5 (8.4-10.2) mg/dL
--- NOTE | 2023-05-06 13:21 | P.PN ---
Subjective Patient is seen for follow-up for acute kidney injury. Patient was admitted with shortness of breath and increased leg swelling with significant volume overload. Patient has been diuresed. Serum creatinine has worsened today and patient continues to have significant edema. Urine output has also dropped. Renal replacement therapy has been di scussed with the patient and she is agreeable to start. Objective - Vital Signs Vital signs: Vital Signs Temp 97.4 F L 05/06/23 08:29 Pulse 64 05/06/23 11:34 Resp 16 05/06/23 11:34 BP 132/78 05/06/23 11:34 Pulse Ox 92 L 05/06/23 11:34 FiO2 Intake & Output 05/05/23 05/06/23 05/06/23 18:59 06:59 18:59 Intake Total 720 0 120 Output Total 100 Balance 720 0 20 Weight 76.5 kg Intake: IV 80 0.9 80 Intake, IV Titration 100 Amount Piperacillin-Tazobactam 3 100 .375 gm In Sodium Chloride 0.9% 100 ml @ 25 mls/hr IVPB Q12HR [facility] Rx #:[id number] Oral 540 0 120 Output: Urine 100 Other: Voiding Method Toilet Toilet # Voids 2 0 # Bowel Movements 1 0 - Exam Patient is comfortable awake alert oriented 3. No acute distress Examination of the heart S1 and S2 Examination of the lungs bilateral breath sounds are heard Abdomen is soft nontender Examination of lower extremities shows edema 2-3+ bilaterally MILL TURNER exam grossly intact - Labs CBC & Chem 7: 05/06/23 07:31 05/06/23 07:31 Labs: Abnormal Lab Results - Last 24 Hours (Table) 05/05/23 05/05/23 05/06/23 Range/Units 16:26 20:23 06:12 RBC (3.80-5.40) m/uL Hgb (11.4-16.0) gm/dL Hct (34.0-46.0) % MCHC (31.0-37.0) g/dL RDW (11.5-15.5) % Lymphocytes # (1.0-4.8) k/uL Chloride (98-107) mmol/L BUN (7-17) mg/dL Creatinine (0.52-1.04) mg/dL Glucose (74-99) mg/dL POC Glucose (mg/dL) 194 H 271 H 163 H (70-110) mg/dL Magnesium (1.6-2.3) mg/dL 05/06/23 05/06/23 05/06/23 Range/Units 07:31 07:31 12:02 RBC 3.46 L (3.80-5.40) m/uL Hgb 9.0 L (11.4-16.0) gm/dL Hct 29.6 L (34.0-46.0) % MCHC 30.4 L (31.0-37.0) g/dL RDW 16.7 H (11.5-15.5) % Lymphocytes # 0.5 L (1.0-4.8) k/uL Chloride 95 L (98-107) mmol/L BUN 63 H (7-17) mg/dL Creatinine 3.69 H (0.52-1.04) mg/dL Glucose 132 H (74-99) mg/dL POC Glucose (mg/dL) 119 H (70-110) mg/dL Magnesium 2.7 H (1.6-2.3) mg/dL Assessment and Plan Assessment: 1. Acute kidney injury, ATN and component of cardiorenal syndrome with worsening renal function poor urine output and persistent volume overload. Discussed renal replacement therapy with the patient and she is agreeable to proceed. No evidence of obstruction on ultrasound. UA appears benign with 1+ protein no blood or cells. No hypotension noted. No nephrotoxic agents identified. 2. Rule out underlying chronic kidney disease. Previous labs not available for comparison 3. Volume overload 4. CHF systolic acute on top of chronic ejection fraction 40-45% with severe pulmonary hypertension. 5. Right heel ulcer/cellulitis, no evidence of osteomyelitis. Maintained on antibiotics. 6. Anemia of chronic disease with severe iron deficiency Plan: Consult vascular surgery for dialysis catheter placement. We will plan for first treatment tomorrow. Continue with IV Lasix and metolazone. Continue with daily weights
[2023-05-06 14:22] VITALS: BMI 29.8
[2023-05-06 16:47] LABS: Glucose,Whole Blood 93 mg/dL (70-110)
[2023-05-06] MEDS ORDERED: fentaNYL (PF) 50 MCG/1 ML VIAL IVP ONE (17:45)
[2023-05-06] MEDS ORDERED: MIDAZOLAM 2 MG/2 ML VIAL IVP ONE (17:45)
[2023-05-06] MEDS ORDERED: LIDOCAINE 1% INJ 10MG/ML (5 ML VIAL-PF) SQ ONE (17:45)
[2023-05-06] MEDS ORDERED: IOPAMIDOL-250 100ML BTL INTRAARTER ONE (17:51)
[2023-05-06 21:00] LABS: Glucose,Whole Blood 96 mg/dL (70-110)
--- NOTE | 2023-05-06 23:05 | OP ---
OPERATIVE REPORT DATE OF SERVICE : PREOPERATIVE DIAGNOSIS: Acute chronic renal failure. POSTOPERATIVE DIAGNOSIS: Acute chronic renal failure. PROCEDURES PERFORMED: 1. Inferior vena cavogram. 2. Placement of a dialysis catheter, right femoral approach. DESCRIPTION OF PROCEDURE: This patient was brought to the boot and shoe laborer. Right groin and left groin were prepped and drapes applied in a sterile manner. This patient had a history of dialysis catheter placed in the past. 1% lidocaine was infiltrated and IV sedation. Ultrasound-guided micropuncture introduced into the right femoral vein. Micropuncture guidewire was passed. Then, there was some resistance at the iliac vein. We placed a 4-[place] sheath and did the vena cavogram. The vena cava was opened. Iliac vein was opened. Then, we passed a regular guidewire, which was parked in the inferior vena cava. The dilator was advanced on top of the guidewire. Then, we placed 30 cm dialysis catheter on the top of the guidewire. The guidewire was removed. Flushed with heparin saline and hep-locked, secured with 3-0 nylon. The patient tolerated the procedure well. MMODL / IJN: [id number] /
[2023-05-07 05:52] LABS: Glucose,Whole Blood 104 mg/dL (70-110)
[2023-05-07] MEDS: INSULIN ASPART (NovoLOG) 100 UNIT/ML VIAL SQ SCH ×4 (05:59→20:16)
[2023-05-07] MEDS: INSULIN DETEMIR (LEVEMIR) 100 UNIT/ML SYR SQ SCH (06:15)
[2023-05-07 07:22] LABS: African American GFR (CKD) 14 (>60 ml/min/1.73 sqM); Anion Gap 15 mmol/L; Blood Urea Nitrogen 67 mg/dL (7-17); Calcium 8.3 mg/dL (8.4-10.2); Carbon Dioxide 24 mmol/L (22-30); Chloride 96 mmol/L (98-107); Glucose 104 mg/dL (74-99); Non-African American GFR(CKD) 12 (>60 ml/min/1.73 sqM); Potassium 3.9 mmol/L (3.5-5.1); Sodium 135 mmol/L (137-145)
[2023-05-07] MEDS: GABAPENTIN 300 MG CAP PO SCH ×4 (08:12→20:05)
[2023-05-07] MEDS: ATORVASTATIN 40 MG TAB PO SCH (08:12)
[2023-05-07] MEDS: POTASSIUM CHLORIDE ER 20 MEQ TAB.ER PO SCH (08:13)
[2023-05-07] MEDS: PIPERACILLIN-TAZOBACTAM 3.375 GM in SODIUM CHLORIDE 0.9% 100 ML IVPB SCH (08:13)
[2023-05-07] MEDS: SERTRALINE 50 MG TAB PO SCH (08:13)
[2023-05-07] MEDS: MULTIVITAMINS, THERA 1 EACH TAB PO SCH (08:13)
[2023-05-07] MEDS: EZETIMIBE 10 MG TAB PO SCH (08:13)
[2023-05-07] MEDS: ENOXAPARIN 30 MG/0.3 ML SYRINGE SQ SCH (08:14)
--- NOTE | 2023-05-07 08:59 | IR ---
EXAMINATION TYPE: IR cvc insert non tunneled DATE OF EXAM: 05/06/2023 FLUOROSCOPY Hemodialysis catheter insertion, 0.3min fluoro, [id number] images submitted.
--- NOTE | 2023-05-07 10:47 | P.PN ---
Subjective Progress Note Date: 05/07/23 57-year-old with a past medical history of type II DM complicated by peripheral neuropathy with chronic nonhealing right foot ulcers, hypertension, and hyperlipidemia. She presented to the emergency department on 04/17/23 was directed by PCP for concerns of fluid overload. Also with right heel ulcer. Chest x-ray in the emergency room was consistent with fluid overload. EKG revealed sinus rhythm short ND interval a 71 bpm with no other ST/T-wave changes. Laboratory evaluation revealed BUN of 42, creatinine 1.82 (no baseline available for comparison), proBNP 16,800, glucose 147, an unremarkable UA and a negative respiratory viral panel negative. Patient was seen by ID regarding her RLE heel ulcer, and WCx returned polymicrobial. She was initially treated with Unasyn from 04/18-04/21, then switched to Zosyn when cultures returned + for pseudomonas, enterococcus faecalis, artemio, and providencia rettgeri. Bone scan and Foot XR negative for osteomyelitis. Plans for discharge on Augmentin and ciprofloxacin for treatment of infected ulcer. Echo showed EF 40-45%, global hypokinesis, mod MR/TR, with severe pulmonary HTN. Cardiology recommended outpatient followup for right and left heart cath. Renal function worsened due to diuresis. Nephrology consulted, possible cardiorenal component post diarrhea with no baseline renal function. Renal US negative for hydronephrosis. Patient also with hyperkalemia on 04/19, 04/22 and 04/23. Aldactone discontinued, given a single dose of calcium gluconate 2 g IVPB and sodium bicarb 1 amp, hyperkalemia resolved. Diuresed with Lasix drip and Metolazone PO from 04/28-05/03, briefly switched to Torsemide PO from 05/03-05/05 then to Lasix 60 mg IV BID due to poor urine output. Renal function continued to worsen, hemodialysis catheter placed on 05/06 by Vascular surgery, plans to start hemodialysis on 05/07. 05/07 Patient was seen and examined. No acute events overnight. Persistent swelling to the bilateral thighs. BMP Na 135, Cl 96, BUN 67, Cr 3.8, glu 104, Ca 8.3. Discussed with Dr. Nunez, plans to start hemodialysis today. General: non toxic, no distress, appears at stated age Derm: warm, dry Head: atraumatic, normocephalic, symmetric Eyes: EOMI, no lid lag, anicteric sclera Mouth: no lip lesion, mucus membranes moist Cardiovascular: S1S2 reg, no murmur Lungs: Decreased BS bilateral, no rhonchi, no rales , no accessory muscle use Ext: no gross muscle atrophy, 1+ edema up to thighs, no contractures Neuro: no focal neuro deficits Psych: Alert, oriented, appropriate affect Based on my assessment of this patient, this patient meets a high complexity level of care. Patient has an acute diagnosis of volume overload now acute kidney injury that poses a threat to life or bodily function. Acute kidney injury on suspected underlying chronic kidney disease: Renal US negative for obstruction. Lasix drip and Metolazone DC'd on 05/03, started on Torsemide 05/03-05/05, switched to Lasix 60 mg IV BID 05/05. Nephrology on board. Acute systolic CHF exacerbation with EF of 40-45%: Coreg 25 mg PO BID. Farxiga 5 mg PO QD. Lasix as above. No ACEi or Aldactone due to worsening renal function and hyperkalemia. Strict intake and outtake. Daily weights. Diabetes mellitus with hyperglycemia: Levemir 15 units QD. Novolog per sliding scale. Accuchecks ACHS. Hypoglycemic precautions. Severe pulmonary hypertension: Outpatient right heart cath per Cardiology. Diabetic right foot ulcers with superimposed infection: Status post 15 days of Z osyn IV. Discussed with Dr. Subrmaanian, OK to discontinue. Iron Deficiency Anemia superimposed on Anemia of Chronic Disease Resolved: Hyperkalemia, Hypokalemia Chronic conditions: Hypertension, hyperlipidemia CODE STATUS: FULL CODE. DVT Prophylaxis: Lovenox SQ GI Prophylaxis: Protonix IV Designated medical POA if patient is not able to make medical decisions for themselves: Anticipated discharge: Home. I have reviewed the following sales development consultant notes: Nephrology. I have reviewed the results of the following tests: BMP I have ordered the following tests: BMP I have discussed the care of this patient with the following independent historian: I have independently interpreted the following test below: I have discussed the management of this patient with the following physician: Discussed with Dr. Nunez, Dr. Subramanian. Objective - Vital Signs Vital signs: Vital Signs Temp 98.6 F 05/06/23 20:00 Pulse 63 05/06/23 15:57 Resp 16 05/07/23 04:00 BP 135/68 05/07/23 04:00 Pulse Ox 95 05/07/23 04:00 FiO2 Intake & Output 05/06/23 05/07/23 05/07/23 18:59 06:59 18:59 Intake Total 120 1240 180 Output Total 100 200 Balance 20 1040 180 Weight 76.5 kg 89.5 kg Intake: Oral 120 1240 180 Output: Urine 100 200 Other: Voiding Method Toilet Toilet # Voids 0 # Bowel Movements 0 - Labs CBC & Chem 7: 05/06/23 07:31 05/07/23 06:34 Labs: Abnormal Lab Results - Last 24 Hours (Table) 05/06/23 05/06/23 05/06/23 Range/Units 07:31 07:31 12:02 RBC 3.46 L (3.80-5.40) m/uL Hgb 9.0 L (11.4-16.0) gm/dL Hct 29.6 L (34.0-46.0) % MCHC 30.4 L (31.0-37.0) g/dL RDW 16.7 H (11.5-15.5) % Lymphocytes # 0.5 L (1.0-4.8) k/uL Sodium (137-145) mmol/L Chloride 95 L (98-107) mmol/L BUN 63 H (7-17) mg/dL Creatinine 3.69 H (0.52-1.04) mg/dL Glucose 132 H (74-99) mg/dL POC Glucose (mg/dL) 119 H (70-110) mg/dL Calcium (8.4-10.2) mg/dL Magnesium 2.7 H (1.6-2.3) mg/dL 05/07/23 Range/Units 06:34 RBC (3.80-5.40) m/uL Hgb (11.4-16.0) gm/dL Hct (34.0-46.0) % MCHC (31.0-37.0) g/dL RDW (11.5-15.5) % Lymphocytes # (1.0-4.8) k/uL Sodium 135 L (137-145) mmol/L Chloride 96 L (98-107) mmol/L BUN 67 H (7-17) mg/dL Creatinine 3.80 H (0.52-1.04) mg/dL Glucose 104 H (74-99) mg/dL POC Glucose (mg/dL) (70-110) mg/dL Calcium 8.3 L (8.4-10.2) mg/dL Magnesium (1.6-2.3) mg/dL
[2023-05-07 11:19] LABS: Glucose,Whole Blood 84 mg/dL (70-110)
--- NOTE | 2023-05-07 11:20 | P.PN ---
Subjective Patient is seen for follow-up for acute kidney injury. Patient was admitted with shortness of breath and increased leg swelling with significant volume overload. Patient has been diuresed. Renal function has worsened and patient remains with significant volume overload. Urine output is low. Patient has agreed for renal replacement therapy. Status post right femoral dialysis catheter placement. Patient is starting her first treatment today. No significant complaints except for shortness of breath. Objective - Vital Signs Vital signs: Vital Signs Temp 98.6 F 05/06/23 20:00 Pulse 63 05/06/23 15:57 Resp 16 05/07/23 04:00 BP 135/68 05/07/23 04:00 Pulse Ox 95 05/07/23 09:01 FiO2 Intake & Output 05/06/23 05/07/23 05/07/23 18:59 06:59 18:59 Intake Total 120 1240 180 Output Total 100 200 Balance 20 1040 180 Weight 76.5 kg 89.5 kg Intake: Oral 120 1240 180 Output: Urine 100 200 Other: Voiding Method Toilet Toilet # Voids 0 # Bowel Movements 0 - Exam Patient is comfortable awake alert oriented 3. 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 Acute kidney injury, ATN and component of cardiorenal syndrome with worsening renal function poor urine output and persistent volume overload. Started hemodialysis 05/07/2023. No evidence of obstruction on ultrasound. UA appears benign with 1+ protein no blood or cells. No hypotension noted. No nephrotoxic agents identified. 2. Rule out underlying chronic kidney disease. Previous labs not available for comparison 3. Volume overload 4. CHF systolic acute on top of chronic ejection fraction 40-45% with severe pulmonary hypertension. 5. Right heel ulcer/cellulitis, no evidence of osteomyelitis. Maintained on antibiotics. 6. Anemia of chronic disease with severe iron deficiency Plan: Hemodialysis today and again in a.m. Case management to set up outpatient chair time. Continue with IV Lasix and Zaroxolyn in the meantime.
--- NOTE | 2023-05-07 15:01 | P.PN ---
Subjective Progress Note Date: 05/06/23 Principal diagnosis: Reason for follow-up his right heel diabetic foot infection and wound Patient is a 57-year-old female with a past medical history significant for diabetes mellitus hypertension hyperlipidemia patient did have a history of chronic nonhealing wound to the right heel area, patient was sent to the ER for nonhealing of the wound concerning for possible deep infection. On today's evaluation that is 05/06/2023 the patient remains to be afebrile, the patient is breathing comfortably on room air without need for supplemental oxygen patient denies any chest pain shortness of breath or cough, the patient denies any abdominal pain no nausea vomiting or diarrhea and denies pain to the right heel wound. Patient did have a creatinine of 3.69 Objective - Vital Signs Vital signs: Vital Signs Temp 97.4 F L 05/06/23 08:29 Pulse 64 05/06/23 11:34 Resp 16 05/06/23 11:34 BP 132/78 05/06/23 11:34 Pulse Ox 92 L 05/06/23 11:34 FiO2 Intake & Output 05/05/23 05/06/23 05/06/23 18:59 06:59 18:59 Intake Total 720 0 120 Output Total 100 Balance 720 0 20 Weight 76.5 kg Intake: IV 80 0.9 80 Intake, IV Titration 100 Amount Piperacillin-Tazobactam 3 100 .375 gm In Sodium Chloride 0.9% 100 ml @ 25 mls/hr IVPB Q12HR REPLACED BY [facility] Rx #:[id number] Oral 540 0 120 Output: Urine 100 Other: Voiding Method Toilet # Voids 2 0 # Bowel Movements 1 0 - Exam GENERAL DESCRIPTION: Middle-aged female lying in bed in no distress RESPIRATORY SYSTEM: Unlabored breathing , decreased breath sounds at bases HEART: S1 S2 regular rate and rhythm , ABDOMEN: Soft , no tenderness EXTREMITIES: Right heel wound is currently dressed - Labs CBC & Chem 7: 05/06/23 07:31 05/07/23 06:34 Labs: Abnormal Lab Results - Last 24 Hours (Table) 05/05/23 05/05/23 05/05/23 Range/Units 12:09 16:26 20:23 RBC (3.80-5.40) m/uL Hgb (11.4-16.0) gm/dL Hct (34.0-46.0) % MCHC (31.0-37.0) g/dL RDW (11.5-15.5) % Lymphocytes # (1.0-4.8) k/uL Chloride (98-107) mmol/L BUN (7-17) mg/dL Creatinine (0.52-1.04) mg/dL Glucose (74-99) mg/dL POC Glucose (mg/dL) 151 H 194 H 271 H (70-110) mg/dL Magnesium (1.6-2.3) mg/dL 05/06/23 05/06/23 05/06/23 Range/Units 06:12 07:31 07:31 RBC 3.46 L (3.80-5.40) m/uL Hgb 9.0 L (11.4-16.0) gm/dL Hct 29.6 L (34.0-46.0) % MCHC 30.4 L (31.0-37.0) g/dL RDW 16.7 H (11.5-15.5) % Lymphocytes # 0.5 L (1.0-4.8) k/uL Chloride 95 L (98-107) mmol/L BUN 63 H (7-17) mg/dL Creatinine 3.69 H (0.52-1.04) mg/dL Glucose 132 H (74-99) mg/dL POC Glucose (mg/dL) 163 H (70-110) mg/dL Magnesium 2.7 H (1.6-2.3) mg/dL Assessment and Plan (1) Cellulitis Current Visit: Yes Status: Acute Code(s): L03.90 - CELLULITIS, UNSPECIFIED SNOMED Code(s): 204707029 (2) Pressure ulcer of right heel, stage 3 Current Visit: Yes Status: Acute Code(s): L89.613 - PRESSURE ULCER OF RIGHT HEEL, STAGE 3 SNOMED Code(s): 99700268408041 (3) Type 2 diabetes mellitus with foot ulcer Current Visit: Yes Status: Acute Code(s): E11.621 - TYPE 2 DIABETES MELLITUS WITH FOOT ULCER; L97.509 - NON-PRESSURE CHRONIC ULCER OTH PRT UNSP FOOT W UNSP SEVERITY SNOMED Code(s): 822197568 Plan: 1patient presented to hospital with a chronic nonhealing wound to the right heel area which apparently has been there for more than a month failing outpatient oral local treatment, x-ray did not show any bony destruction and the bonescan was negative for osteomyelitis,local culture currently growing Pseudomonas aeruginosa Enterococcus and procidentia. 2patient with infected right heel diabetic foot ulcer culture positive multiple pathogen she is covered with Zosyn and local wound care with Aquacel silver dressing keep the area of the pressure, 3- patient did have worsening of her kidney function vascular surgery has been consulted for dialysis catheter placement for starting dialysis Dictation was produced using [employer] dictation software. please excuse any grammatical, word or spelling errors. Time with Patient: Less than 30
--- NOTE | 2023-05-07 15:03 | P.PN ---
Subjective Progress Note Date: 05/07/23 Principal diagnosis: Reason for follow-up his right heel diabetic foot infection and wound Patient is a 57-year-old female with a past medical history significant for diabetes mellitus hypertension hyperlipidemia patient did have a history of chronic nonhealing wound to the right heel area, patient was sent to the ER for nonhealing of the wound concerning for possible deep infection patient did have a negative wound scan. Patient did get her dialysis catheter placement on 05/16/2023 because of worsening kidney function On today's evaluation that is 05/07/2023 the patient continues to be afebrile, the patient is breathing comfortably on 2 L nasal cannula supplemental oxygen patient denies any chest pain shortness of breath or cough, the patient denies any nausea vomiting or abdominal pain however has developed diarrhea no blood or mucus in the stool Patient did have a creatinine of 3.80 Objective - Vital Signs Vital signs: Vital Signs Temp 98.0 F 05/07/23 12:00 Pulse 85 05/07/23 12:00 Resp 14 05/07/23 12:00 BP 151/81 05/07/23 12:00 Pulse Ox 95 05/07/23 09:01 FiO2 Intake & Output 05/06/23 05/07/23 05/07/23 18:59 06:59 18:59 Intake Total 120 1240 280 Output Total 100 200 Balance 20 1040 280 Weight 76.5 kg 89.5 kg Intake: Intake, IV Titration 100 Amount Piperacillin-Tazobactam 3 100 .375 gm In Sodium Chloride 0.9% 100 ml @ 25 mls/hr IVPB Q12HR [facility] Rx #:[id number] Oral 120 1240 180 Output: Urine 100 200 Other: Voiding Method Toilet Toilet Toilet # Voids 0 # Bowel Movements 0 - Exam GENERAL DESCRIPTION: Middle-aged female lying in bed in no distress RESPIRATORY SYSTEM: Unlabored breathing , decreased breath sounds at bases HEART: S1 S2 regular rate and rhythm , ABDOMEN: Soft , no tenderness EXTREMITIES: Right heel wound has significantly decreased in size with no slough tissue minimal surrounding callus no foul-smelling drainage - Labs CBC & Chem 7: 05/06/23 07:31 05/07/23 06:34 Labs: Abnormal Lab Results - Last 24 Hours (Table) 05/07/23 Range/Units 06:34 Sodium 135 L (137-145) mmol/L Chloride 96 L (98-107) mmol/L BUN 67 H (7-17) mg/dL Creatinine 3.80 H (0.52-1.04) mg/dL Glucose 104 H (74-99) mg/dL Calcium 8.3 L (8.4-10.2) mg/dL Assessment and Plan (1) Cellulitis Current Visit: Yes Status: Acute Code(s): L03.90 - CELLULITIS, UNSPECIFIED SNOMED Code(s): 136513255 (2) Pressure ulcer of right heel, stage 3 Current Visit: Yes Status: Acute Code(s): L89.613 - PRESSURE ULCER OF RIGHT HEEL, STAGE 3 SNOMED Code(s): 96844238102818 (3) Type 2 diabetes mellitus with foot ulcer Current Visit: Yes Status: Acute Code(s): E11.621 - TYPE 2 DIABETES MELLITUS WITH FOOT ULCER; L97.509 - NON-PRESSURE CHRONIC ULCER OTH PRT UNSP FOOT W UNSP SEVERITY SNOMED Code(s): 440744740 (4) Diarrhea Current Visit: Yes Status: Acute Code(s): R19.7 - DIARRHEA, UNSPECIFIED SNOMED Code(s): 37185005 Plan: 1patient presented to hospital with a chronic nonhealing wound to the right heel area which apparently has been there for more than a month failing outpatient oral local treatment, x-ray did not show any bony destruction and the bonescan was negative for osteomyelitis,local culture currently growing Pseudomonas aeruginosa Enterococcus and procidentia. 2patient with infected right heel diabetic foot ulcer culture positive multiple pathogen patient has received about 3 weeks of antibiotic should be more than enough we will go ahead and discontinue Zosyn local okay to continue with the Aquacel silver dressing 3-diarrhea possible antibiotic associated hopefully will improve with discontinuation of antibiotic stool for C. difficile has been requested we will treat if positive Dictation was produced using [employer] dictation software. please excuse any gramm atical, word or spelling errors. Time with Patient: Less than 30
[2023-05-07] MEDS: carvediloL 12.5 MG TAB PO SCH ×2 (15:52→18:00)
[2023-05-07] MEDS: hydrALAZINE HCL 25 MG TAB PO SCH ×3 (15:52→20:05)
[2023-05-07] MEDS: FUROSEMIDE 10 MG/ML 10 ML VIAL IV SCH ×2 (15:53→20:05)
[2023-05-07 16:47] LABS: Glucose,Whole Blood 174 mg/dL (70-110)
[2023-05-07 17:18] LABS: Hepatitis B Surface Antigen Nonreactive
[2023-05-07 17:58] LABS: Hepatitis B Surface AB- Quant 3.5 mIU/mL
[2023-05-07] MEDS: metOLazone 5 MG TAB PO SCH (18:00)
[2023-05-07] MEDS: amLODIPine 5 MG TAB PO SCH (18:00)
[2023-05-07 20:08] LABS: Glucose,Whole Blood 213 mg/dL (70-110)
[2023-05-08 06:16] LABS: Glucose,Whole Blood 203 mg/dL (70-110)
[2023-05-08] MEDS: INSULIN ASPART (NovoLOG) 100 UNIT/ML VIAL SQ SCH ×4 (06:47→21:29)
[2023-05-08] MEDS: INSULIN DETEMIR (LEVEMIR) 100 UNIT/ML SYR SQ SCH (06:47)
[2023-05-08] MEDS: SERTRALINE 50 MG TAB PO SCH (09:05)
[2023-05-08] MEDS: ATORVASTATIN 40 MG TAB PO SCH (09:05)
[2023-05-08] MEDS: metOLazone 5 MG TAB PO SCH (09:05)
[2023-05-08] MEDS: carvediloL 12.5 MG TAB PO SCH ×2 (09:05→17:03)
[2023-05-08] MEDS: MULTIVITAMINS, THERA 1 EACH TAB PO SCH (09:05)
[2023-05-08] MEDS: GABAPENTIN 300 MG CAP PO SCH ×4 (09:05→21:06)
[2023-05-08] MEDS: EZETIMIBE 10 MG TAB PO SCH (09:05)
[2023-05-08] MEDS: FUROSEMIDE 10 MG/ML 10 ML VIAL IV SCH ×2 (09:05→21:06)
[2023-05-08] MEDS: hydrALAZINE HCL 25 MG TAB PO SCH ×3 (09:05→21:06)
[2023-05-08] MEDS: POTASSIUM CHLORIDE ER 20 MEQ TAB.ER PO SCH (09:05)
[2023-05-08] MEDS: ENOXAPARIN 30 MG/0.3 ML SYRINGE SQ SCH (09:05)
[2023-05-08] MEDS: amLODIPine 5 MG TAB PO SCH (09:05)
[2023-05-08 10:03] LABS: African American GFR (CKD) 19 (>60 ml/min/1.73 sqM); Anion Gap 13 mmol/L; Blood Urea Nitrogen 43 mg/dL (7-17); Calcium 8.2 mg/dL (8.4-10.2); Carbon Dioxide 26 mmol/L (22-30); Chloride 98 mmol/L (98-107); Glucose 256 mg/dL (74-99); Non-African American GFR(CKD) 17 (>60 ml/min/1.73 sqM); Potassium 3.9 mmol/L (3.5-5.1); Sodium 137 mmol/L (137-145)
--- NOTE | 2023-05-08 11:11 | P.PN ---
Subjective Progress Note Date: 05/08/23 Hospital Course: 57-year-old with a past medical history of type II DM completed by peripheral neuropathy with chronic nonhealing right foot ulcers, hypertension, and hyperlipidemia. Initially presented with concerns for fluid overload. Initial chest x-ray consistent with hypervolemia. EKG revealed sinus rhythm short SD interval a 71 bpm with no other ST/T-wave changes. Laboratory evaluation revealed BUN of 42, creatinine 1.82 (no baseline available for comparison), proBNP 16,800, glucose 147, an unremarkable UA and a negative respiratory viral panel negative. Pt was seen by ID regarding her RLE heel ulcer, and wound cultures returned polymicrobial. She was initially treated with unasyn, then switched to zosyn when cultures returned + for pseudomonas, enterococcus faeca lis, artemio, and providencia rettgeri. Bone scan and Foot XR negative for osteomyelitis. Patient completed nearly 3 weeks of antibiotic course, antibiotics now discontinued. Cardiology was also consulted. Echo showed EF 40-45%, with severe pHTN. Patient was given IV diuretics. Recommended ou tpatient right and left heart cath per cardiology. Patient's renal function continued to worsen, developed acute kidney injury in the setting of ATN likely component of cardiorenal syndrome as well. Nephrology was consulted. Due to persistently poor renal function, patient now started on hemodialysis on 05/07/23. Continued on IV diuretics. Subjective: Patient seen and examined at bedside. No acute events overnight. She had nausea and vomiting yesterday, none today. Had 4 loose BM yesterday too. Still decreased UOP. Pertinent positives and negatives as discussed above, a complete review of systems was performed and all other systems are negative. Vitals Signs Reviewed. General: nontoxic, no distress, appears at stated age Derm: warm, dry, right groin access clean, dry and intact Head: atraumatic, normocephalic, symmetric Eyes: EOMI, no lid lag, anicteric sclera Mouth: no lip lesion, mucus membranes moist Cardiovascular: S1S2 reg, systolic murmur Lungs: CTA bilateral, no rhonchi, no rales , no accessory muscle use Abdominal: soft, nontender to palpation, no guarding, no appreciable organomegaly Ext: no gross muscle atrophy, 2+ pitting edema, no contractures Neuro: CN II-XI grossly intact, no focal neuro deficits Psych: Alert, oriented, appropriate affect Data Reviewed Today: Pertinent Labs: Potassium 3.9, creatinine 2.96, sugars range between 174-256 Imaging: No new imaging Assessment and Plan: Patient needs close monitoring, prognosis guarded Active: Acute kidney injury, secondary to ATN and cardiorenal syndrome, underlying CKD, patient now on dialysis Acute systolics CHF with EF 40-45% Severe pulmonary hypertension -Plan for hemodialysis today -Nephrology following -Remains on IV Lasix 60 mg every 12 hours, monitor renal function and electrolytes -Also on metolazone 5 mg daily -Cardiology signed off, outpatient left and right heart cath recommended -On carvedilol 25 twice a day, Diabetic right foot ulcers with superimposed infection, status post IV antibiotics -Continue wound care Type 2 diabetes with hyperglycemia -Levemir increased to 20 units, sliding scale insulin, monitor for hypoglycemia Iron deficiency anemia Anemia of chronic disease -Status post IV iron -On darbepoetin Hypertension -On amlodipine 5 mg daily -Carvedilol 25 twice a day -Hydralazine 25 3 times a day -Metolazone and IV Lasix Resolved: Hyperkalemia Hypokalemia Chronic: Depression Restless leg Dyslipidemia DVT ppx: heparin sq Code status: FC Anticipated discharge place: likely home Anticipated discharge time: pending clinical course Objective - Vital Signs Vital signs: Vital Signs Temp 97.6 F 05/08/23 08:00 Pulse 68 05/08/23 08:00 Resp 18 05/08/23 08:00 BP 136/76 05/08/23 08:00 Pulse Ox 98 05/08/23 08:00 FiO2 Intake & Output 05/07/23 05/08/23 05/08/23 18:59 06:59 18:59 Intake Total 1460 0 240 Output Total 2500 400 Balance -1040 -400 240 Weight 71.1 kg Intake: Intake, IV Titration 200 Amount Piperacillin-Tazobactam 3 200 .375 gm In Sodium Chloride 0.9% 100 ml @ 25 mls/hr IVPB Q12HR [facility] Rx #:[id number] Oral 760 0 240 Hemodialysis 500 Output: Urine 400 Hemodialysis 2500 Other: Voiding Method Toilet Toilet Toilet # Voids 1 # Bowel Movements 4 1 - Labs CBC & Chem 7: 05/06/23 07:31 05/08/23 09:29 Labs: Abnormal Lab Results - Last 24 Hours (Table) 05/07/23 05/07/23 05/08/23 Range/Units 16:46 20:06 06:15 BUN (7-17) mg/dL Creatinine (0.52-1.04) mg/dL Glucose (74-99) mg/dL POC Glucose (mg/dL) 174 H 213 H 203 H (70-110) mg/dL Calcium (8.4-10.2) mg/dL 05/08/23 Range/Units 09:29 BUN 43 H (7-17) mg/dL Creatinine 2.96 H (0.52-1.04) mg/dL Glucose 256 H (74-99) mg/dL POC Glucose (mg/dL) (70-110) mg/dL Calcium 8.2 L (8.4-10.2) mg/dL
[2023-05-08] MEDS ORDERED: INSULIN DETEMIR (LEVEMIR) 100 UNIT/ML SYR SQ ONE (11:30)
[2023-05-08 11:44] LABS: Glucose,Whole Blood 238 mg/dL (70-110)
--- NOTE | 2023-05-08 12:07 | P.PN ---
Subjective Patient is seen for follow-up for acute kidney injury. Patient was admitted with shortness of breath and increased leg swelling with significant volume overload. Started on hemodialysis on 05/07/2023 due to worsening renal function and persistent volume overload and low urine output. No significant complaints except for shortness of breath. Status post hemodialysis yesterday with UF of 2.5 L. Objective - Vital Signs Vital signs: Vital Signs Temp 97.6 F 05/08/23 08:00 Pulse 68 05/08/23 08:00 Resp 18 05/08/23 08:00 BP 136/76 05/08/23 08:00 Pulse Ox 98 05/08/23 08:00 FiO2 Intake & Output 05/07/23 05/08/23 05/08/23 18:59 06:59 18:59 Intake Total 1460 0 240 Output Total 2500 400 Balance -1040 -400 240 Weight 71.1 kg Intake: Intake, IV Titration 200 Amount Piperacillin-Tazobactam 3 200 .375 gm In Sodium Chloride 0.9% 100 ml @ 25 mls/hr IVPB Q12HR [facility] Rx #:[id number] Oral 760 0 240 Hemodialysis 500 Output: Urine 400 Hemodialysis 2500 Other: Voiding Method Toilet Toilet Toilet # Voids 1 # Bowel Movements 4 1 - Exam Patient is comfortable awake alert oriented 3. 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 Acute kidney injury, ATN and component of cardiorenal syndrome with worsening renal function poor urine output and persistent volume overload. Started hemodialysis 05/07/2023. No evidence of obstruction on ultrasound. UA appears benign with 1+ protein no blood or cells. No hypotension noted. No nephrotoxic agents identified. 2. Rule out underlying chronic kidney disease. Previous labs not available for comparison 3. Volume overload 4. CHF systolic acute on top of chronic ejection fraction 40-45% with severe pulmonary hypertension. 5. Right heel ulcer/cellulitis, no evidence of osteomyelitis. Maintained on antibiotics. 6. Anemia of chronic disease with severe iron deficiency Plan: Hemodialysis today and again in a.m. Case management to set up outpatient chair time. Continue with IV Lasix and Zaroxolyn in the meantime.
[2023-05-08] MEDS: ONDANSETRON 4 MG/2 ML VIAL IVP PRN (16:25)
[2023-05-08 16:28] LABS: Glucose,Whole Blood 97 mg/dL (70-110)
[2023-05-08] MEDS: HEPARIN SODIUM,PORCINE 5,000 UNIT/ML 1 ML VIAL SQ SCH ×2 (17:03→23:56)
--- NOTE | 2023-05-08 18:36 | P.PN ---
Subjective Progress Note Date: 05/08/23 Principal diagnosis: Reason for follow-up his right heel diabetic foot infection and wound Patient is a 57-year-old female with a past medical history significant for diabetes mellitus hypertension hyperlipidemia patient did have a history of chronic nonhealing wound to the right heel area, patient was sent to the ER for nonhealing of the wound concerning for possible deep infection patient did have a negative wound scan. Patient did get her dialysis catheter placement on 05/16/2023 because of worsening kidney function On today's evaluation that is 05/08/2023 the patient remains to be afebrile, the patient is breathing comfortably on room air without the need for supplemental oxygen patient denies any chest pain shortness of breath or cough, the patient denies any nausea vomiting or abdominal pain, mentioned that he has slowed down Patient did have a creatinine of 2.96 no CBC was done today Objective - Vital Signs Vital signs: Vital Signs Temp 97.6 F 05/08/23 08:00 Pulse 68 05/08/23 08:00 Resp 18 05/08/23 08:00 BP 136/76 05/08/23 08:00 Pulse Ox 98 05/08/23 08:00 FiO2 Intake & Output 05/07/23 05/08/23 05/08/23 18:59 06:59 18:59 Intake Total 1460 0 240 Output Total 2500 400 Balance -1040 -400 240 Weight 71.1 kg Intake: Intake, IV Titration 200 Amount Piperacillin-Tazobactam 3 200 .375 gm In Sodium Chloride 0.9% 100 ml @ 25 mls/hr IVPB Q12HR [facility] Rx #:[id number] Oral 760 0 240 Hemodialysis 500 Output: Urine 400 Hemodialysis 2500 Other: Voiding Method Toilet Toilet Toilet # Voids 1 # Bowel Movements 4 1 - Exam GENERAL DESCRIPTION: Middle-aged female lying in bed in no distress RESPIRATORY SYSTEM: Unlabored breathing , decreased breath sounds at bases HEART: S1 S2 regular rate and rhythm , ABDOMEN: Soft , no tenderness EXTREMITIES: Right heel wound has significantly decreased in size with no slough tissue minimal surrounding callus no foul-smelling drainage - Labs CBC & Chem 7: 05/06/23 07:31 05/08/23 09:29 Labs: Abnormal Lab Results - Last 24 Hours (Table) 05/07/23 05/07/23 05/08/23 Range/Units 16:46 20:06 06:15 BUN (7-17) mg/dL Creatinine (0.52-1.04) mg/dL Glucose (74-99) mg/dL POC Glucose (mg/dL) 174 H 213 H 203 H (70-110) mg/dL Calcium (8.4-10.2) mg/dL 05/08/23 05/08/23 Range/Units 09:29 11:42 BUN 43 H (7-17) mg/dL Creatinine 2.96 H (0.52-1.04) mg/dL Glucose 256 H (74-99) mg/dL POC Glucose (mg/dL) 238 H (70-110) mg/dL Calcium 8.2 L (8.4-10.2) mg/dL Assessment and Plan (1) Cellulitis Current Visit: Yes Status: Acute Code(s): L03.90 - CELLULITIS, UNSPECIFIED SNOMED Code(s): 716461774 (2) Pressure ulcer of right heel, stage 3 Current Visit: Yes Status: Acute Code(s): L89.613 - PRESSURE ULCER OF RIGHT HEEL, STAGE 3 SNOMED Code(s): 84179195265560 (3) Type 2 diabetes mellitus with foot ulcer Current Visit: Yes Status: Acute Code(s): E11.621 - TYPE 2 DIABETES MELLITUS WITH FOOT ULCER; L97.509 - NON-PRESSURE CHRONIC ULCER OTH PRT UNSP FOOT W UNSP SEVERITY SNOMED Code(s): 592724756 (4) Diarrhea Current Visit: Yes Status: Acute Code(s): R19.7 - DIARRHEA, UNSPECIFIED SNOMED Code(s): 71105463 Plan: 1patient presented to hospital with a chronic nonhealing wound to the right h eel area which apparently has been there for more than a month failing outpatient oral local treatment, x-ray did not show any bony destruction and the bonescan was negative for osteomyelitis,local culture currently growing Pseudomonas aeruginosa Enterococcus and procidentia. 2patient with infected right heel diabetic foot ulcer culture positive multiple pathogen patient has received about 3 weeks of antibiotic, currently monitor closely off antibiotic local wound care to continue with Aquacel silver dressing 3-diarrhea possible antibiotic associated did have improvement in her diarrhea stool for C. difficile was not done Dictation was produced using dragon dictation software. please excuse any grammatical, word or spelling errors. Time with Patient: Less than 30
[2023-05-08 20:06] LABS: Glucose,Whole Blood 118 mg/dL (70-110)
[2023-05-09 06:01] LABS: Glucose,Whole Blood 134 mg/dL (70-110)
[2023-05-09] MEDS: INSULIN ASPART (NovoLOG) 100 UNIT/ML VIAL SQ SCH ×4 (06:16→21:38)
[2023-05-09] MEDS: INSULIN DETEMIR (LEVEMIR) 100 UNIT/ML SYR SQ SCH (06:16)
[2023-05-09 08:19] LABS: African American GFR (CKD) 24 (>60 ml/min/1.73 sqM); Anion Gap 12 mmol/L; Blood Urea Nitrogen 31 mg/dL (7-17); Calcium 8.1 mg/dL (8.4-10.2); Carbon Dioxide 27 mmol/L (22-30); Chloride 97 mmol/L (98-107); Glucose 129 mg/dL (74-99); Magnesium 2.3 mg/dL (1.6-2.3); Non-African American GFR(CKD) 21 (>60 ml/min/1.73 sqM); Potassium 3.8 mmol/L (3.5-5.1); Sodium 136 mmol/L (137-145)
[2023-05-09] MEDS: EZETIMIBE 10 MG TAB PO SCH (09:10)
[2023-05-09] MEDS: SERTRALINE 50 MG TAB PO SCH (09:11)
[2023-05-09] MEDS: MULTIVITAMINS, THERA 1 EACH TAB PO SCH (09:11)
[2023-05-09] MEDS: GABAPENTIN 300 MG CAP PO SCH ×4 (09:11→21:37)
[2023-05-09] MEDS: POTASSIUM CHLORIDE ER 20 MEQ TAB.ER PO SCH (09:11)
[2023-05-09] MEDS: HEPARIN SODIUM,PORCINE 5,000 UNIT/ML 1 ML VIAL SQ SCH ×3 (09:11→23:29)
[2023-05-09] MEDS: ATORVASTATIN 40 MG TAB PO SCH (09:11)
[2023-05-09 11:25] LABS: Glucose,Whole Blood 138 mg/dL (70-110)
--- NOTE | 2023-05-09 11:36 | P.PN ---
Subjective Progress Note Date: 05/09/23 Hospital Course: 57-year-old with a past medical history of type II DM completed by peripheral neuropathy with chronic nonhealing right foot ulcers, hypertension, and hyperlipidemia. Initially presented with concerns for fluid overload. Initial chest x-ray consistent with hypervolemia. EKG revealed sinus rhythm short ND interval a [address] other [address]/T-wave changes. Laboratory evaluation revealed BUN of 42, creatinine 1.82 (no baseline available for comparison), proBNP 16,800, glucose 147, an unremarkable UA and a negative respiratory viral panel negative. Pt was seen by ID regarding her RLE heel ulcer, and wound cultures returned polymicrobial. She was initially treated with unasyn, then switched to zosyn when cultures returned + for pseudomonas, enterococcus faecalis, artemio, and providencia rettgeri. Bone scan and Foot XR negative for osteomyelitis. Patient completed nearly 3 weeks of antibiotic course, antibiotics now discontinued. Cardiology was also consulted. Echo showed EF 40-45%, with severe pHTN. Patient was given IV diuretics. Recommended outpatient right and left heart cath per cardiology. Patient's renal function continued to worsen, developed acute kidney injury in the setting of ATN likely component of cardiorenal syndrome as well. Nephrology was consulted. Due to persistently poor renal function, patient now started on hemodialysis on 05/07/23. Continued on IV diuretics. Subjective: Patient seen and examined at bedside. No acute events overnight. She had nausea but no vomiting today. Had 4 loose BM yesterday too. Still decreased UOP. Pertinent positives and negatives as discussed above, a complete review of systems was performed and all other systems are negative. Vitals Signs Reviewed. General: nontoxic, no distress, appears at stated age Derm: warm, dry, right groin access clean, dry and intact Head: atraumatic, normocephalic, symmetric Eyes: EOMI, no lid lag, anicteric sclera Mouth: no lip lesion, mucus membranes moist Cardiovascular: S1S2 reg, systolic murmur Lungs: CTA bilateral, no rhonchi, no rales , no accessory muscle use Abdominal: soft, nontender to palpation, no guarding, no appreciable organome milla Ext: no gross muscle atrophy, 2+ pitting edema, no contractures Neuro: CN II-XI grossly intact, no focal neuro deficits Psych: Alert, oriented, appropriate affect Data Reviewed Today: Pertinent Labs: Potassium 3.8, creatinine 2.49, glucose ranging between 118-138 Imaging: No new imaging Assessment and Plan: Patient needs close monitoring, prognosis guarded Active: Acute kidney injury, secondary to ATN and cardiorenal syndrome, underlying CKD, patient now on dialysis Acute systolics CHF with EF 40-45% Severe pulmonary hypertension -Plan for hemodialysis today and can -Plan discussed with nephrology, patient will need another access and likely discharge on Saturday after her treatment -Remains on IV Lasix 60 mg every 12 hours, monitor renal function and electrolytes -Also on metolazone 5 mg daily -Cardiology signed off, outpatient left and right heart cath recommended -On carvedilol 25 twice a day, Diabetic right foot ulcers with superimposed infection, status post IV antibi otics -Continue wound care Type 2 diabetes with hyperglycemia -Continue Levemir 20 units, sliding scale insulin, monitor for hypoglycemia Iron deficiency anemia Anemia of chronic disease -Status post IV iron -On darbepoetin Hypertension -On amlodipine 5 mg daily -Carvedilol 25 twice a day -Hydralazine 25 3 times a day -Metolazone and IV Lasix Diarrhea -cdiff pending Resolved: Hyperkalemia Hypokalemia Chronic: Depression Restless leg Dyslipidemia DVT ppx: heparin sq Code status: Anticipated discharge place: likely home Anticipated discharge time: Likely Saturday Objective - Vital Signs Vital signs: Vital Signs Temp 97.9 F 05/09/23 09:05 Pulse 61 05/09/23 09:05 Resp 18 05/09/23 09:05 BP 137/74 05/09/23 09:05 Pulse Ox 92 L 05/09/23 09:05 FiO2 Intake & Output 05/08/23 05/09/23 05/09/23 18:59 06:59 18:59 Intake Total 640 240 Output Total 1900 Balance -1260 240 Weight 65 kg Intake: Oral 240 240 Hemodialysis 400 Output: Hemodialysis 1900 Other: Voiding Method Toilet Toilet Toilet # Voids 0 - Labs CBC & Chem 7: 05/06/23 07:31 05/09/23 07:22 Labs: Abnormal Lab Results - Last 24 Hours (Table) 05/08/23 05/08/23 05/09/23 Range/Units 11:42 20:00 06:00 Sodium (137-145) mmol/L Chloride (98-107) mmol/L BUN (7-17) mg/dL Creatinine (0.52-1.04) mg/dL Glucose (74-99) mg/dL POC Glucose (mg/dL) 238 H 118 H 134 H (70-110) mg/dL Calcium (8.4-10.2) mg/dL 05/09/23 05/09/23 Range/Units 07:22 11:24 Sodium 136 L (137-145) mmol/L Chloride 97 L (98-107) mmol/L BUN 31 H (7-17) mg/dL Creatinine 2.49 H (0.52-1.04) mg/dL Glucose 129 H (74-99) mg/dL POC Glucose (mg/dL) 138 H (70-110) mg/dL Calcium 8.1 L (8.4-10.2) mg/dL
--- NOTE | 2023-05-09 12:02 | P.PN ---
Subjective Patient is seen for follow-up for acute kidney injury. Patient was admitted with shortness of breath and increased leg swelling with significant volume overload. Started on hemodialysis on 05/07/2023 due to worsening renal function and persistent volume overload and low urine output. Seen on HD today. S/p UF 1.9L yesterday. Goal UF 3 L today. No significant complaints today. Objective - Vital Signs Vital signs: Vital Signs Temp 97.9 F 05/09/23 09:05 Pulse 61 05/09/23 09:05 Resp 18 05/09/23 09:05 BP 137/74 05/09/23 09:05 Pulse Ox 92 L 05/09/23 09:05 FiO2 Intake & Output 05/08/23 05/09/23 05/09/23 18:59 06:59 18:59 Intake Total 640 240 Output Total 1900 Balance -1260 240 Weight 65 kg Intake: Oral 240 240 Hemodialysis 400 Output: Hemodialysis 1900 Other: Voiding Method Toilet Toilet Toilet # Voids 0 - Exam Patient is comfortable awake alert oriented 3. 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 - Labs CBC & Chem 7: 05/06/23 07:31 05/09/23 07:22 Labs: Abnormal Lab Results - Last 24 Hours (Table) 05/08/23 05/09/23 05/09/23 Range/Units 20:00 06:00 07:22 Sodium 136 L (137-145) mmol/L Chloride 97 L (98-107) mmol/L BUN 31 H (7-17) mg/dL Creatinine 2.49 H (0.52-1.04) mg/dL Glucose 129 H (74-99) mg/dL POC Glucose (mg/dL) 118 H 134 H (70-110) mg/dL Calcium 8.1 L (8.4-10.2) mg/dL 05/09/23 Range/Units 11:24 Sodium (137-145) mmol/L Chloride (98-107) mmol/L BUN (7-17) mg/dL Creatinine (0.52-1.04) mg/dL Glucose (74-99) mg/dL POC Glucose (mg/dL) 138 H (70-110) mg/dL Calcium (8.4-10.2) mg/dL Assessment and Plan Assessment: 1. Acute kidney injury, ATN and component of cardiorenal syndrome with worsening renal function poor urine output and persistent volume overload. Started hemodialysis 05/07/2023. No evidence of obstruction on ultrasound. UA appears benign with 1+ protein no blood or cells. No hypotension noted. No nephrotoxic agents identified. 2. Rule out underlying chronic kidney disease. Previous labs not available for comparison 3. Volume overload 4. CHF systolic acute on top of chronic ejection fraction 40-45% with severe pulmonary hypertension. 5. Right heel ulcer/cellulitis, no evidence of osteomyelitis. Maintained on antibiotics. 6. Anemia of chronic disease with severe iron deficiency Plan: Hemodialysis today and again in a.m. Case management to set up outpatient chair time. Continue with IV Lasix and Zaroxolyn in the meantime. Change to IJ permacath. Discussed with Dr. Dale
[2023-05-09] MEDS: DARBEPOETIN ALFA 40 MCG/0.4 ML SYRINGE SQ SCH (12:03)
[2023-05-09] MEDS: carvediloL 12.5 MG TAB PO SCH ×2 (13:45→16:42)
[2023-05-09] MEDS: amLODIPine 5 MG TAB PO SCH (13:51)
[2023-05-09] MEDS: FUROSEMIDE 10 MG/ML 10 ML VIAL IV SCH ×2 (13:51→21:37)
[2023-05-09] MEDS: hydrALAZINE HCL 25 MG TAB PO SCH ×3 (13:51→21:37)
[2023-05-09] MEDS: metOLazone 5 MG TAB PO SCH (13:51)
[2023-05-09 16:18] LABS: Glucose,Whole Blood 131 mg/dL (70-110)
[2023-05-09 19:56] LABS: Glucose,Whole Blood 231 mg/dL (70-110)
[2023-05-10 06:03] LABS: Glucose,Whole Blood 310 mg/dL (70-110)
[2023-05-10] MEDS: INSULIN DETEMIR (LEVEMIR) 100 UNIT/ML SYR SQ SCH (06:14)
[2023-05-10] MEDS: INSULIN ASPART (NovoLOG) 100 UNIT/ML VIAL SQ SCH ×4 (06:15→20:44)
[2023-05-10] MEDS: ATORVASTATIN 40 MG TAB PO SCH (08:47)
[2023-05-10] MEDS: MULTIVITAMINS, THERA 1 EACH TAB PO SCH (08:47)
[2023-05-10] MEDS: EZETIMIBE 10 MG TAB PO SCH (08:47)
[2023-05-10] MEDS: POTASSIUM CHLORIDE ER 20 MEQ TAB.ER PO SCH (08:47)
[2023-05-10] MEDS: GABAPENTIN 300 MG CAP PO SCH ×3 (08:47→20:53)
[2023-05-10] MEDS: SERTRALINE 50 MG TAB PO SCH (08:47)
[2023-05-10] MEDS: HEPARIN SODIUM,PORCINE 5,000 UNIT/ML 1 ML VIAL SQ SCH ×3 (08:48→23:58)
[2023-05-10] MEDS: amLODIPine 5 MG TAB PO SCH (11:01)
[2023-05-10] MEDS: metOLazone 5 MG TAB PO SCH (11:14)
[2023-05-10] MEDS: carvediloL 12.5 MG TAB PO SCH ×2 (11:14→17:12)
[2023-05-10] MEDS: FUROSEMIDE 10 MG/ML 10 ML VIAL IV SCH (11:14)
[2023-05-10] MEDS: hydrALAZINE HCL 25 MG TAB PO SCH ×3 (11:14→22:03)
[2023-05-10 11:36] LABS: Glucose,Whole Blood 55 mg/dL (70-110)
[2023-05-10] MEDS ORDERED: DEXTROSE 50% SYRINGE 50 ML IVP PRN (11:38)
[2023-05-10] MEDS: DEXTROSE 50% SYRINGE 50 ML IVP PRN ×2 (11:47→15:13)
[2023-05-10 12:05] LABS: Glucose,Whole Blood 147 mg/dL (70-110)
--- NOTE | 2023-05-10 12:08 | P.PN ---
Subjective Patient is seen for follow-up for acute kidney injury. Patient was admitted with shortness of breath and increased leg swelling with significant volume overload. Started on hemodialysis on 05/07/2023 due to worsening renal function and persistent volume overload and low urine output. Feeling better now. Status post UF of 8 L in 3 days. Scheduled for another hemodialysis treatment today. Scheduled for IJ permacath placement today Objective - Vital Signs Vital signs: Vital Signs Temp 97.8 F 05/10/23 08:45 Pulse 66 05/10/23 08:45 Resp 18 05/10/23 08:45 BP 146/74 05/10/23 08:45 Pulse Ox 97 05/10/23 08:45 FiO2 Intake & Output 05/09/23 05/10/23 05/10/23 18:59 06:59 18:59 Intake Total 1460 Output Total 3500 Balance -2039 Weight 62.5 kg Intake: Oral 960 Hemodialysis 500 Output: Hemodialysis 3500 Other: Voiding Method Toilet Toilet Toilet - Exam Patient is comfortable awake alert oriented 3. 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 Acute kidney injury, ATN and component of cardiorenal syndrome with worsening renal function poor urine output and persistent volume overload. St arted hemodialysis 05/07/2023. No evidence of obstruction on ultrasound. UA appears benign with 1+ protein no blood or cells. No hypotension noted. No nephrotoxic agents identified. 2. Rule out underlying chronic kidney disease. Previous labs not available for comparison 3. Volume overload 4. CHF systolic acute on top of chronic ejection fraction 40-45% with severe pulmonary hypertension. 5. Right heel ulcer/cellulitis, no evidence of osteomyelitis. Maintained on antibiotics. 6. Anemia of chronic disease with severe iron deficiency Plan: Hemodialysis today and again in a.m. Check bladder scan as patient states she has not voided much over the last 2 day s Case management to set up outpatient chair time. Switch Lasix to oral and continue with Zaroxolyn Patient can be discharged tomorrow after hemodialysis.
--- NOTE | 2023-05-10 12:14 | P.PN ---
Subjective Progress Note Date: 05/10/23 Hospital Course: 57-year-old with a past medical history of type II DM completed by peripheral neuropathy with chronic nonhealing right foot ulcers, hypertension, and hyperlipidemia. Initially presented with concerns for fluid overload. Initial chest x-ray consistent with hypervolemia. EKG revealed sinus rhythm short VT interval a 71 bpm with no other ST/T-wave changes. Laboratory evaluation revealed BUN of 42, creatinine 1.82 (no baseline available for comparison), proBNP 16,800, glucose 147, an unremarkable UA and a negative respiratory viral panel negative. Pt was seen by ID regarding her RLE heel ulcer, and wound cultures returned polymicrobial. She was initially treated with unasyn, then switched to zosyn when cultures returned + for pseudomonas, enterococcus faeca lis, artemio, and providencia rettgeri. Bone scan and Foot XR negative for osteomyelitis. Patient completed nearly 3 weeks of antibiotic course, antibiotics now discontinued. Cardiology was also consulted. Echo showed EF 40-45%, with severe pHTN. Patient was given IV diuretics. Recommended ou tpatient right and left heart cath per cardiology. Patient's renal function continued to worsen, developed acute kidney injury in the setting of ATN likely component of cardiorenal syndrome as well. Nephrology was consulted. Due to persistently poor renal function, patient now started on hemodialysis on 05/07/23. She is also switched to oral diuretics. Subjective: Patient seen and examined at bedside. No acute events overnight. No much urinary output. Pertinent positives and negatives as discussed above, a complete review of systems was performed and all other systems are negative. Vitals Signs Reviewed. General: nontoxic, no distress, appears at stated age Derm: warm, dry, right groin access clean, dry and intact Head: atraumatic, normocephalic, symmetric Eyes: EOMI, no lid lag, anicteric sclera Mouth: no lip lesion, mucus membranes moist Cardiovascular: S1S2 reg, systolic murmur Lungs: CTA bilateral, no rhonchi, no rales , no accessory muscle use Abdominal: soft, nontender to palpation, no guarding, no appreciable organomegaly Ext: no gross muscle atrophy, 2+ pitting edema, no contractures Neuro: CN II-XI grossly intact, no focal neuro deficits Psych: Alert, oriented, appropriate affect Data Reviewed Today: Pertinent Labs: Glucose range between 55-310 Imaging: No new imaging Assessment and Plan: Patient needs close monitoring, prognosis guarded Active: Acute kidney injury, secondary to ATN and cardiorenal syndrome, underlying CKD, patient now on dialysis Acute systolics CHF with EF 40-45% Severe pulmonary hypertension -Plan for hemodialysis today and tomorrow -Nephrology note reviewed, bladder scan today, Lasix switched to oral 60 twice a day, continue metolazone 5 daily, likely discharge tomorrow -Right IJ permacath pending today -Cardiology signed off, outpatient left and right heart cath recommended -On carvedilol 25 twice a day, Diabetic right foot ulcers with superimposed infection, status post IV antibiotics -Continue wound care Type 2 diabetes with hyperglycemia Patient had an episode of hypoglycemia this morning -Levemir decreased to 10 units, sliding scale insulin, monitor for hypoglycemia -A1c ordered Iron deficiency anemia Anemia of chronic disease -Status post IV iron -On darbepoetin Hypertension -On amlodipine 5 mg daily -Carvedilol 25 twice a day -Hydralazine 25 3 times a day Diarrhea -cdiff pending Resolved: Hyperkalemia Hypokalemia Chronic: Depression Restless leg Dyslipidemia DVT ppx: heparin sq Code status: FC Anticipated discharge place: likely home Anticipated discharge time: tomorrow Objective - Vital Signs Vital signs: Vital Signs Temp 97.8 F 05/10/23 08:45 Pulse 66 05/10/23 08:45 Resp 18 05/10/23 08:45 BP 146/74 05/10/23 08:45 Pulse Ox 97 05/10/23 08:45 FiO2 Intake & Output 05/09/23 05/10/23 05/10/23 18:59 06:59 18:59 Intake Total 1460 Output Total 3500 Balance -204 Weight 62.5 kg Intake: Oral 960 Hemodialysis 500 Output: Hemodialysis 3500 Other: Voiding Method Toilet Toilet Toilet - Labs CBC & Chem 7: 05/06/23 07:31 05/09/23 07:22 Labs: Abnormal Lab Results - Last 24 Hours (Table) 05/09/23 05/09/23 05/10/23 Range/Units 16:16 19:55 06:00 POC Glucose (mg/dL) 131 H 231 H 310 H (70-110) mg/dL 05/10/23 05/10/23 Range/Units 11:35 12:03 POC Glucose (mg/dL) 55 L 147 H (70-110) mg/dL
--- NOTE | 2023-05-10 12:58 | P.PN ---
Subjective Progress Note Date: 05/09/23 Principal diagnosis: Reason for follow-up his right heel diabetic foot infection and wound Patient is a 57-year-old female with a past medical history significant for diabetes mellitus hypertension hyperlipidemia patient did have a history of chronic nonhealing wound to the right heel area, patient was sent to the ER for nonhealing of the wound concerning for possible deep infection patient did have a negative wound scan. Patient did get her dialysis catheter placement on 05/16/2023 because of worsening kidney function On today's evaluation that is 05/09/2023 the patient continues to be afebrile, the patient is breathing comfortably on room air, patient denies any chest pain shortness of breath or cough, the patient denies any nausea vomiting or abdominal pain, mentioned diarrhea has slowed down Patient did have a creatinine of 2.49 no CBC was done today Objective - Vital Signs Vital signs: Vital Signs Temp 97.9 F 05/09/23 09:05 Pulse 61 05/09/23 09:05 Resp 18 05/09/23 09:05 BP 137/74 05/09/23 09:05 Pulse Ox 92 05/09/23 09:05 FiO2 Intake & Output 05/08/23 05/09/23 18:59 06:59 Intake Total 1460 Output Total 3500 Balance -2039 Weight 62.5 kg Intake: Oral 960 Hemodialysis 500 Output: Hemodialysis 3500 Other: Voiding Method Toilet Toilet - Exam GENERAL DESCRIPTION: Middle-aged female lying in bed in no distress RESPIRATORY SYSTEM: Unlabored breathing , decreased breath sounds at bases HEART: S1 S2 regular rate and rhythm , ABDOMEN: Soft , no tenderness EXTREMITIES: Right heel wound has significantly decreased in size with no slough tissue minimal surrounding callus no foul-smelling drainage - Labs CBC & Chem 7: 05/06/23 07:31 05/09/23 07:22 Labs: Abnormal Lab Results - Last 24 Hours (Table) 05/09/23 05/09/23 05/10/23 Range/Units 16:16 19:55 06:00 POC Glucose (mg/dL) 131 H 231 H 310 H (70-110) mg/dL 05/10/23 05/10/23 Range/Units 11:35 12:03 POC Glucose (mg/dL) 55 L 147 H (70-110) mg/dL Assessment and Plan (1) Cellulitis Current Visit: Yes Status: Acute Code(s): L03.90 - CELLULITIS, UNSPECIFIED SNOMED Code(s): 957749676 (2) Pressure ulcer of right heel, stage 3 Current Visit: Yes Status: Acute Code(s): L89.613 - PRESSURE ULCER OF RIGHT HEEL, STAGE 3 SNOMED Code(s): 37403632224987 (3) Type 2 diabetes mellitus with foot ulcer Current Visit: Yes Status: Acute Code(s): E11.621 - TYPE 2 DIABETES MELLITUS WITH FOOT ULCER; L97.509 - NON-PRESSURE CHRONIC ULCER OTH PRT UNSP FOOT W UNSP SEVERITY SNOMED Code(s): 935804319 (4) Diarrhea Current Visit: Yes Status: Acute Code(s): R19.7 - DIARRHEA, UNSPECIFIED SNOMED Code(s): 19189793 Plan: 1patient presented to hospital with a chronic nonhealing wound to the right he el area which apparently has been there for more than a month failing outpatient oral local treatment, x-ray did not show any bony destruction and the bonescan was negative for osteomyelitis,local culture currently growing Pseudomonas aeruginosa Enterococcus and procidentia. 2patient with infected right heel diabetic foot ulcer culture positive multiple pathogen patient has received about 3 weeks of antibiotic, currently monitor closely off antibiotic local wound care to continue with Aquacel silver dressing 3-diarrhea possible antibiotic associated did have improvement in her diarrhea with discoloration of Zosyn the patient will monitor closely Dictation was produced using [employer] dictation software. please excuse any grammatical, word or spelling errors. Time with Patient: Less than 30
--- NOTE | 2023-05-10 12:59 | P.PN ---
Subjective Progress Note Date: 05/10/23 Principal diagnosis: Reason for follow-up his right heel diabetic foot infection and wound Patient is a 57-year-old female with a past medical history significant for diabetes mellitus hypertension hyperlipidemia patient did have a history of chronic nonhealing wound to the right heel area, patient was sent to the ER for nonhealing of the wound concerning for possible deep infection patient did have a negative wound scan. Patient did get her dialysis catheter placement on 05/16/2023 because of worsening kidney function On today's evaluation that is 05/10/2023 the patient remains to be afebrile, the patient is breathing comfortably on room air, patient denies any chest pain shortness of breath or cough, the patient denies any nausea vomiting or abdominal pain, patient diarrhea has resolved currently undergoing dialysis without any problem Patient did have a creatinine of 2.49 as of yesterday no lab draw today Objective - Vital Signs Vital signs: Vital Signs Temp 97.8 F 05/10/23 08:45 Pulse 66 05/10/23 08:45 Resp 18 05/10/23 08:45 BP 146/74 05/10/23 08:45 Pulse Ox 97 05/10/23 08:45 FiO2 Intake & Output 05/09/23 05/10/23 05/10/23 18:59 06:59 18:59 Intake Total 1460 Output Total 3500 Balance -2039 Weight 62.5 kg Intake: Oral 960 Hemodialysis 500 Output: Hemodialysis 3500 Other: Voiding Method Toilet Toilet Toilet - Exam GENERAL DESCRIPTION: Middle-aged female lying in bed in no distress RESPIRATORY SYSTEM: Unlabored breathing , decreased breath sounds at bases HEART: S1 S2 regular rate and rhythm , ABDOMEN: Soft , no tenderness EXTREMITIES: Right heel wound has significantly decreased in size with no slough tissue minimal surrounding callus no foul-smelling drainage - Labs CBC & Chem 7: 05/06/23 07:31 05/09/23 07:22 Labs: Abnormal Lab Results - Last 24 Hours (Table) 05/09/23 05/09/23 05/10/23 Range/Units 16:16 19:55 06:00 POC Glucose (mg/dL) 131 H 231 H 310 H (70-110) mg/dL 05/10/23 05/10/23 Range/Units 11:35 12:03 POC Glucose (mg/dL) 55 L 147 H (70-110) mg/dL Assessment and Plan (1) Cellulitis Current Visit: Yes Status: Acute Code(s): L03.90 - CELLULITIS, UNSPECIFIED SNOMED Code(s): 819567150 (2) Pressure ulcer of right heel, stage 3 Current Visit: Yes Status: Acute Code(s): L89.613 - PRESSURE ULCER OF RIGHT HEEL, STAGE 3 SNOMED Code(s): 36275141981771 (3) Type 2 diabetes mellitus with foot ulcer Current Visit: Yes Status: Acute Code(s): E11.621 - TYPE 2 DIABETES MELLITUS WITH FOOT ULCER; L97.509 - NON-PRESSURE CHRONIC ULCER OTH PRT UNSP FOOT W UNSP SEVERITY SNOMED Code(s): 802041962 (4) Diarrhea Current Visit: Yes Status: Acute Code(s): R19.7 - DIARRHEA, UNSPECIFIED SNOMED Code(s): 74122625 Plan: 1patient presented to hospital with a chronic nonhealing wound to the right heel area which apparently has been there for more than a month failing outpatient oral local treatment, x-ray did not show any bony destruction and the bonescan was negative for osteomyelitis,local culture currently growing Pseudomonas aeruginosa Enterococcus and procidentia. 2patient with infected right heel diabetic foot ulcer culture positive multiple pathogen patient has received about 3 weeks of antibiotic, currently monitor closely off antibiotic local wound care to continue with Aquacel silver dressing 3-diarrhea possible antibiotic associated, the patient did have improvement in her diarrhea with discoloration of Zosyn currently being monitored closely off antibiotic therapy we will recheck a CBC with a.m. lab Dictation was produced using [employer] dictation software. please excuse any gramma tical, word or spelling errors.
[2023-05-10] MEDS ORDERED: LIDOCAINE 1% INJ 10MG/ML (20 ML MDV) ONE ×2 (13:06→14:42)
[2023-05-10] MEDS ORDERED: HEPARIN SODIUM 1,000 UN/ML (10ML VL) ONE (13:07)
[2023-05-10] MEDS ORDERED: LIDOCAINE 0.5%-EPI 1:200,000 50 ML VIAL SQ ONE (14:20)
[2023-05-10] MEDS ORDERED: HEPARIN SODIUM 1,000 UN/ML (10ML VL) IV ONE (14:46)
[2023-05-10 15:21] LABS: Glucose,Whole Blood 25 mg/dL (70-110)
[2023-05-10 15:31] LABS: Glucose,Whole Blood 133 mg/dL (70-110)
[2023-05-10] MEDS ORDERED: DEXTROSE 10% IN WATER 1,000 ML with SODIUM CHLORIDE 4MEQ/ML VIAL 77 MEQ IV ONE (16:00)
--- NOTE | 2023-05-10 16:18 | XR ---
EXAMINATION TYPE: XR chest 1V portable DATE OF EXAM: 05/10/2023 Comparison: 04/17/2023 Clinical History: 57-year-old female HEMO CATH PLACEMENT Findings: Right-sided double-lumen hemodialysis catheter with tips at the lower SVC. Heart borderline enlarged. Diffuse interstitial density. Some patchy density at the periphery of the left base. No appreciable pneumothorax. Impression: Right-sided double-lumen hemodialysis catheter tips at the lower SVC. Borderline cardiomegaly and int erstitial density, correlate for mild pulmonary vascular congestion.
[2023-05-10 16:53] LABS: Glucose,Whole Blood 74 mg/dL (70-110)
[2023-05-10 20:03] LABS: Glucose,Whole Blood 242 mg/dL (70-110)
--- NOTE | 2023-05-10 21:34 | OP ---
OPERATIVE REPORT DATE OF SERVICE : PREOPERATIVE DIAGNOSIS: Acute on chronic renal failure. POSTOPERATIVE DIAGNOSIS: Acute on chronic renal failure. PROCEDURE PERFORMED: Ultrasound-guided right jugular dialysis catheter placement. DESCRIPTION OF PROCEDURE: The patient was brought to the laboratory mechanical technician. Right side of the neck and chest was prepped and drapes applied in a sterile manner. 1% lidocaine was infiltrated in the neck area. Ultrasound-guided micropuncture was introduced into the right jugular vein. Micropuncture guidewire was passed and sheath was advanced on top of the guidewire. Then, we passed a regular guidewire, which was parked at the inferior vena cava. After the tunnel was created, through the tunnel, we brought a 19 cm dialysis catheter. The dilator was advanced on top of the guidewire, then we passed a sheath on the top of the guidewire. Through the sheath, we introduced the dialysis catheter. Sheath was removed. Tip of the catheter in superior vena cava and atrial junction. Then, right groin was prepped and there were stitches, which were removed. Pressure was held. Right femoral catheter was removed. The patient tolerated the procedure well. MMODL / IJN: [id number] /
[2023-05-10] MEDS: FUROSEMIDE 20 MG TAB PO SCH (23:58)
[2023-05-11 00:14] LABS: Glucose,Whole Blood 326 mg/dL (70-110)
[2023-05-11] MEDS: INSULIN ASPART (NovoLOG) 100 UNIT/ML VIAL SQ SCH ×3 (00:31→12:17)
[2023-05-11 06:08] LABS: Glucose,Whole Blood 243 mg/dL (70-110)
[2023-05-11] MEDS ORDERED: INSULIN DETEMIR (LEVEMIR) 100 UNIT/ML SYR SQ SCH (07:00)
[2023-05-11] MEDS: GABAPENTIN 300 MG CAP PO SCH ×2 (09:28→16:07)
[2023-05-11] MEDS: ATORVASTATIN 40 MG TAB PO SCH (09:28)
[2023-05-11] MEDS: HEPARIN SODIUM,PORCINE 5,000 UNIT/ML 1 ML VIAL SQ SCH ×2 (09:28→16:00)
[2023-05-11] MEDS: SERTRALINE 50 MG TAB PO SCH (09:28)
--- NOTE | 2023-05-11 10:19 | P.PN ---
Subjective Patient is seen for follow-up for acute kidney injury. Patient was admitted with shortness of breath and increased leg swelling with significant volume overload. EF 40-45% Started on hemodialysis on 05/07/2023 due to worsening renal function and persistent volume overload and low urine output. Feeling better now. Status post UF of 10 L in 4 days. Scheduled for another hemodialysis treatment today. Status post right IJ permacath placement Objective - Vital Signs Vital signs: Vital Signs Temp 97.8 F 05/11/23 04:00 Pulse 69 05/11/23 04:00 Resp 16 05/11/23 04:00 BP 148/75 05/11/23 04:00 Pulse Ox 95 05/11/23 04:00 FiO2 Intake & Output 05/10/23 05/11/23 05/11/23 18:59 06:59 18:59 Intake Total 400 10 Output Total 1400 Balance -1000 10 Weight 67.5 kg Intake: IV 10 Invasive Line 2 10 Hemodialysis 400 Output: Hemodialysis 1400 Other: Voiding Method Toilet Toilet # Voids 1 1 # Bowel Movements 0 - Exam Patient is comfortable awake alert oriented 3. No acute distress Examination of the heart S1 and S2 Examination of the lungs bilateral breath sounds are heard Abdomen is soft nontender Examination of lower extremities shows edema 2+ bilaterally BODY ARTIST exam grossly intact - Labs CBC & Chem 7: 05/06/23 07:31 05/09/23 07:22 Labs: Abnormal Lab Results - Last 24 Hours (Table) 05/10/23 05/10/23 05/10/23 Range/Units 11:35 12:03 12:20 POC Glucose (mg/dL) 55 L 147 H (70-110) mg/dL Hemoglobin A1c 10.4 H (<=6.0) % 05/10/23 05/10/23 05/10/23 Range/Units 15:10 15:29 20:02 POC Glucose (mg/dL) 25 L 133 H 242 H (70-110) mg/dL Hemoglobin A1c (<=6.0) % 05/11/23 05/11/23 Range/Units 00:07 06:06 POC Glucose (mg/dL) 326 H 243 H (70-110) mg/dL Hemoglobin A1c (<=6.0) % Assessment and Plan Assessment: 1. Acute kidney injury, ATN and component of cardiorenal syndrome with worsening renal function poor urine output and persistent volume overload. Started hemodialysis 05/07/2023. No evidence of obstruction on ultrasound. UA appears benign with 1+ protein no blood or cells. No hypotension noted. No nephrotoxic agents identified. Low urine output 2. Rule out underlying chronic kidney disease. Previous labs not available for comparison 3. Volume overload 4. CHF systolic acute on top of chronic ejection fraction 40-45% with severe pulmonary hypertension. 5. Right heel ulcer/cellulitis, no evidence of osteomyelitis. Maintained on antibiotics. 6. Anemia of chronic disease with severe iron deficiency Plan: Hemodialysis today Clear for discharge from nephrology standpoint post hemodialysis today. Patient will follow-up as outpatient on Saturday for hemodialysis.
[2023-05-11 11:17] LABS: Glucose,Whole Blood 342 mg/dL (70-110)
--- NOTE | 2023-05-11 11:30 | P.DS ---
Providers Date of admission: 04/17/23 19:10 Expected date of discharge: 05/11/23 Attending physician: Kervin Kaye MD Consults: 04/17/23 19:09 Consult Physician Urgent Consulting Provider: Francisco Javier Valencia Consult Reason/Comments: New onset CHF Do you want consulting provider notified?: Yes 04/17/23 21:23 Consult Physician Urgent Consulting Provider: Shawnee Subramanian Consult Reason/Comments: RLE non-healing ulcers Do you want consulting provider notified?: Yes 04/23/23 14:12 Consult Physician Routine Consulting Provider: Mateo Zambrano Consult Reason/Comments: adriana on CKD Do you want consulting provider notified?: Yes 05/06/23 11:31 Consult Physician Urgent Consulting Provider: Israel Dale Consult Reason/Comments: temporary dialysis cath Do you want consulting provider notified?: Yes Primary care physician: [facility] Course: Discharge Diagnosis: Acute kidney injury, secondary to ATN and cardiorenal syndrome, underlying CKD, patient now on dialysis Acute systolic CHF with EF 40-45% Severe pulmonary hypertension Diabetic right foot ulcers with superimposed infection, status post IV antibiotics Type 2 diabetes with hyperglycemia Iron deficiency anemia Anemia of chronic disease Hypertension Hyperkalemia Hypokalemia Depression Restless leg Dyslipidemia Hospital Course: 57-year-old with a past medical history of type II DM completed by peripheral neuropathy with chronic nonhealing right foot ulcers, hypertension, and hyperlipidemia. Initially presented with concerns for fluid overload. Initial chest x-ray consistent with hypervolemia. EKG revealed sinus rhythm short NH interval a 71 bpm with no other ST/T-wave changes. Laboratory evaluation revealed BUN of 42, creatinine 1.82 (no baseline available for comparison), pr oBNP 16,800, glucose 147, an unremarkable UA and a negative respiratory viral panel negative. Pt was seen by ID regarding her RLE heel ulcer, and wound cultures returned polymicrobial. She was initially treated with unasyn, then switched to zosyn when cultures returned + for pseudomonas, enterococcus faecalis, artemio, and providencia rettgeri. Bone scan and Foot XR negative for osteomyelitis. Patient completed nearly 3 weeks of antibiotic course, antibiotics now discontinued. Cardiology was also consulted. Echo showed EF 40-45%, with severe pHTN. Patient was given IV diuretics. Recommended outpatient right and left heart cath per cardiology. Patient's renal function continued to worsen, developed acute kidney injury in the setting of ATN likely component of cardiorenal syndrome as well. Nephrology was consulted. Due to persistently poor renal function, patient now started on hemodialysis on 05/07/23. She is also switched to oral diuretics. Patient set up for hemodialysis as outpatient. Also has poorly controlled diabetes, being discharged on Levemir at night. Patient seen and examined at bedside. Vital signs reviewed and stable. General: nontoxic, no distress, appears at stated age Derm: warm, dry, right groin access clean, dry and intact Head: atraumatic, normocephalic, symmetric Eyes: EOMI, no lid lag, anicteric sclera Mouth: no lip lesion, mucus membranes moist Cardiovascular: S1S2 reg, systolic murmur Lungs: CTA bilateral, no rhonchi, no rales , no accessory muscle use Abdominal: soft, nontender to palpation, no guarding, no appreciable organomegaly Ext: no gross muscle atrophy, 2+ pitting edema, no contractures Neuro: CN II-XI grossly intact, no focal neuro deficits Psych: Alert, oriented, appropriate affect A total of 33 minutes of time were spent preparing this complex discharge summary. Patient was discharged on 05/11/23 at 1111. Patient Condition at Discharge: Stable Plan - Discharge Summary New Discharge Prescriptions: New carvediloL [Coreg*] 25 mg PO BID@0900,1700 #90 tab metOLazone [Zaroxolyn] 5 mg PO DAILY #90 tab hydrALAZINE HCL [Apresoline] 25 mg PO TID #90 tab Potassium Chloride ER [K-Dur 20] 20 meq PO DAILY #60 tab Furosemide [Lasix] 60 mg PO BID@0900,1600 #90 tab Insulin Detemir [Levemir Flexpen] 15 units SQ DAILY #7 each Gabapentin [Neurontin] 300 mg PO TID #30 cap Continue Ezetimibe [Zetia] 10 mg PO DAILY Multivitamins, Thera [Multivitamin (formulary)] 1 tab PO DAILY rOPINIRole HCL [Requip] 1 mg PO HS Atorvastatin [Lipitor] 40 mg PO DAILY Dapagliflozin Propanediol [Farxiga] 5 mg PO DAILY Sertraline [Zoloft] 50 mg PO DIRECTED Discontinued Diclofenac Sodium [Voltaren] 75 mg PO BID Spironolactone [Aldactone] 25 mg PO DAILY carvediloL 12.5 mg PO BID@0900,1700 Gabapentin 600 mg PO QID lisinopriL [Zestril] 10 mg PO DAILY Torsemide [Demadex] 20 mg PO DAILY Discharge Medication List Atorvastatin [Lipitor] 40 mg PO DAILY 04/17/23 [History] Dapagliflozin Propanediol [Farxiga] 5 mg PO DAILY 04/17/23 [History] Ezetimibe [Zetia] 10 mg PO DAILY 04/17/23 [History] Multivitamins, Thera [Multivitamin (formulary)] 1 tab PO DAILY 04/17/23 [History] Sertraline [Zoloft] 50 mg PO DIRECTED 04/17/23 [History] rOPINIRole HCL [Requip] 1 mg PO HS 04/17/23 [History] Furosemide [Lasix] 60 mg PO BID@0900,1600 #90 tab 05/11/23 [Rx] Gabapentin [Neurontin] 300 mg PO TID #30 cap 05/11/23 [Rx] Insulin Detemir [Levemir Flexpen] 15 units SQ DAILY #7 each 05/11/23 [Rx] Potassium Chloride ER [K-Dur 20] 20 meq PO DAILY #60 tab 05/11/23 [Rx] carvediloL [Coreg*] 25 mg PO BID@0900,1700 #90 tab 05/11/23 [Rx] hydrALAZINE HCL [Apresoline] 25 mg PO TID #90 tab 05/11/23 [Rx] metOLazone [Zaroxolyn] 5 mg PO DAILY #90 tab 05/11/23 [Rx] Follow up Appointment(s)/Referral(s): [facility], [NON-STAFF] - Gwen Blanco MD [STAFF PHYSICIAN] - 1 Week Fadi Nolen DO [Primary Care Provider] - 1-2 days Mateo Zambrano DO [STAFF PHYSICIAN] - 1 Week Patient Instructions/Handouts: Heart Failure (DC), Heart Healthy Diet (DC), Pulmonary Arterial Hypertension (DC), Diabetic Foot Ulcers (DC), Pressure Injury (DC), Low-Sodium Diet (DC), Fluid Restriction (DC), Chronic Wounds (DC) Activity/Diet/Wound Care/Special Instructions: Hemodialysis - [place] [facility] [address], [place] [address] . Chair time will be Saturday, , Saturday at 1230. First treatment date is Saturday05/14/23 - please arrive 30 minutes early on this day. Activity: As tolerated. Take breaks as needed. Diet: Heart healthy and carb consistent diet. Avoid salts, or foods with hidden salts such as canned or boxed foods and frozen dinners. Extra salt makes your heart work harder and traps the fluid in your body for longer. Special Instructions: Weigh yourself every morning after you urinate. If you gain 3 pounds overnight or more than 5 pounds in one week, call your primary physician and funeral pre arrangement counselor for guidance on your medications or they may want to see you in their office. Keep a daily log of your weights and be sure to bring with you at follow up visits with your PCP, blood donor recruiter and funeral pre arrangement counselor. At your follow up with cardiology, it is recommending that you discuss HFMS Zoll Heart Failure monitoring device along with Furoscix (furosemide subcutaneous injection unit) for better management of your heart failure. Take all of your medications as directed, especially your water pills. NEVER skip a dose. And remember to keep all of your doctor's appointments and follow- up as needed. Elevate your legs when you are not up moving around to help with circulation and prevent swelling. Compression stockings are also a great way to improve lower extremity circulation and prevent/improve lower extremity edema. Call your primary blood donor recruiter and/or funeral pre arrangement counselor if you notice any extra swelling in your legs, ankles, feet or abdomen, if you have a new dry cough, if your shortness of breath worsens with activity or at rest, or if you feel more fatigued. Thank you for allowing us to participate in your care, it was truly a pleasure having you for our patient!!! Discharge Disposition: HOME WITH HOME HEALTH SERVICES
[2023-05-11 13:15] LABS: Anisocytosis Slight; Basophils % (A) 1 %; Eosinophils # (A) 0.1 k/uL (0-0.7); Eosinophils % (A) 3 %; HCT 28.9 % (34.0-46.0); HGB 8.7 gm/dL (11.4-16.0); Hypochromasia Marked; Lymphocytes # (A) 0.5 k/uL (1.0-4.8); Lymphocytes % (A) 11 %; MCH 26.5 pg (25.0-35.0); MCHC 30.3 g/dL (31.0-37.0); MCV 87.7 fL (80.0-100.0); Monocytes # (A) 0.3 k/uL (0-1.0); Monocytes % (A) 7 %; Neutrophils # (A) 3.5 k/uL (1.3-7.7); Neutrophils % (A) 77 %; Platelet Count 151 k/uL (150-450); RBC 3.29 m/uL (3.80-5.40); RDW 16.5 % (11.5-15.5); WBC 4.6 k/uL (3.8-10.6)
--- NOTE | 2023-05-11 13:20 | P.PN ---
Subjective Progress Note Date: 05/11/23 Principal diagnosis: Reason for follow-up his right heel diabetic foot infection and wound Patient is a 57-year-old female with a past medical history significant for diabetes mellitus hypertension hyperlipidemia patient did have a history of chronic nonhealing wound to the right heel area, patient was sent to the ER for nonhealing of the wound concerning for possible deep infection patient did have a negative wound scan. Patient did get her dialysis catheter placement on 05/16/2023 because of worsening kidney function On today's evaluation that is 05/11/2023 the patient continues to be afebrile, the patient is breathing comfortably on room air, patient denies any chest pain shortness of breath or cough, the patient denies any nausea vomiting or abdominal pain, patient diarrhea has resolved and denies pain to the right heel wound Patient white count is 4.6 today Objective - Vital Signs Vital signs: Vital Signs Temp 97.8 F 05/11/23 04:00 Pulse 69 05/11/23 04:00 Resp 16 05/11/23 04:00 BP 148/75 05/11/23 04:00 Pulse Ox 95 05/11/23 04:00 FiO2 Intake & Output 05/10/23 05/11/23 05/11/23 18:59 06:59 18:59 Intake Total 400 10 Output Total 1400 Balance -1000 10 Weight 67.5 kg Intake: IV 10 Invasive Line 2 10 Hemodialysis 400 Output: Hemodialysis 1400 Other: Voiding Method Toilet Toilet # Voids 1 1 # Bowel Movements 0 - Exam GENERAL DESCRIPTION: Middle-aged female lying in bed in no distress RESPIRATORY SYSTEM: Unlabored breathing , decreased breath sounds at bases HEART: S1 S2 regular rate and rhythm , ABDOMEN: Soft , no tenderness EXTREMITIES: Right heel wound currently dressed no drainage on the dressing - Labs CBC & Chem 7: 05/11/23 11:04 05/09/23 07:22 Labs: Abnormal Lab Results - Last 24 Hours (Table) 05/10/23 05/10/23 05/10/23 Range/Units 12:20 15:10 15:29 RBC (3.80-5.40) m/uL Hgb (11.4-16.0) gm/dL Hct (34.0-46.0) % MCHC (31.0-37.0) g/dL RDW (11.5-15.5) % Lymphocytes # (1.0-4.8) k/uL POC Glucose (mg/dL) 25 L 133 H (70-110) mg/dL Hemoglobin A1c 10.4 H (<=6.0) % 05/10/23 05/11/23 05/11/23 Range/Units 20:02 00:07 06:06 RBC (3.80-5.40) m/uL Hgb (11.4-16.0) gm/dL Hct (34.0-46.0) % MCHC (31.0-37.0) g/dL RDW (11.5-15.5) % Lymphocytes # (1.0-4.8) k/uL POC Glucose (mg/dL) 242 H 326 H 243 H (70-110) mg/dL Hemoglobin A1c (<=6.0) % 05/11/23 05/11/23 Range/Units 11:04 11:15 RBC 3.29 L (3.80-5.40) m/uL Hgb 8.7 L (11.4-16.0) gm/dL Hct 28.9 L (34.0-46.0) % MCHC 30.3 L (31.0-37.0) g/dL RDW 16.5 H (11.5-15.5) % Lymphocytes # 0.5 L (1.0-4.8) k/uL POC Glucose (mg/dL) 342 H (70-110) mg/dL Hemoglobin A1c (<=6.0) % Assessment and Plan (1) Cellulitis Current Visit: Yes Status: Acute Code(s): L03.90 - CELLULITIS, UNSPECIFIED SNOMED Code(s): 402909577 (2) Pressure ulcer of right heel, stage 3 Current Visit: Yes Status: Acute Code(s): L89.613 - PRESSURE ULCER OF RIGHT HEEL, STAGE 3 SNOMED Code(s): 94016619126253 (3) Type 2 diabetes mellitus with foot ulcer Current Visit: Yes Status: Acute Code(s): E11.621 - TYPE 2 DIABETES MELLITUS WITH FOOT ULCER; L97.509 - NON-PRESSURE CHRONIC ULCER OTH PRT UNSP FOOT W UNSP SEVERITY SNOMED Code(s): 529812958 (4) Diarrhea Current Visit: Yes Status: Acute Code(s): R19.7 - DIARRHEA, UNSPECIFIED SNOMED Code(s): 82535822 Plan: 1patient presented to hospital with a chronic nonhealing wound to the right heel area which apparently has been there for more than a month failing outpatient oral local treatment, x-ray did not show any bony destruction and the bonescan was negative for osteomyelitis,local culture currently growing Pseudomonas aeruginosa Enterococcus and procidentia. 2diarrhea possible antibiotic associated, the patient did have improvement in her diarrhea with discontinuation of Zosyn 3-patient with infected right heel diabetic foot ulcer culture positive multiple pathogen patient has received about 3 weeks of antibiotic, currently monitor closely off antibiotic local wound care to continue with Aquacel silver dressing, the patient did have a normal white count and there is no need for antibiotics on discharge, patient should follow-up with the wound care center for further wound care Dictation was produced using [employer] dictation software. please excuse any grammatical, word or spelling errors. Time with Patient: Less than 30
[2023-05-11 14:23] LABS: ALT 15 U/L (4-34); AST 17 U/L (14-36); African American GFR (CKD) 34 (>60 ml/min/1.73 sqM); Alkaline Phosphatase 153 U/L (38-126); Anion Gap 8 mmol/L; Blood Urea Nitrogen 19 mg/dL (7-17); Calcium 7.8 mg/dL (8.4-10.2); Carbon Dioxide 27 mmol/L (22-30); Chloride 97 mmol/L (98-107); Glucose 349 mg/dL (74-99); Non-African American GFR(CKD) 29 (>60 ml/min/1.73 sqM); Sodium 132 mmol/L (137-145); Total Bilirubin 0.4 mg/dL (0.2-1.3); Total Protein 6.4 g/dL (6.3-8.2)
[2023-05-11] MEDS: hydrALAZINE HCL 25 MG TAB PO SCH ×2 (15:44→16:07)
[2023-05-11] MEDS: FUROSEMIDE 20 MG TAB PO SCH ×2 (15:44→16:07)
[2023-05-11] MEDS: carvediloL 12.5 MG TAB PO SCH (15:44)
[2023-05-11] MEDS: metOLazone 5 MG TAB PO SCH (16:06)
[2023-05-11] MEDS: EZETIMIBE 10 MG TAB PO SCH (16:07)
[2023-05-11] MEDS: POTASSIUM CHLORIDE ER 20 MEQ TAB.ER PO SCH (16:07)
[2023-05-11] MEDS: MULTIVITAMINS, THERA 1 EACH TAB PO SCH (16:07)
[2023-05-11 16:50] VITALS: BP 163/72; PULSE 80; RESP 17; TEMP 97.8
== END 2023-05-11 16:33 | disposition home health service (06) | DRG 291 ==
LOC: EC 13:36 → 3SCARD 19:09 → OBSVTOIN 19:10 → 3SCARD 21:33 → 5NMEDONC 04-25 21:29 → 3SCARD 04-28 11:53 → 3NCARDOBS 05-10 02:58 → 3SCARD 05-10 03:01
PROVIDERS: ADMIT Internal Medicine; ATTEND Internal Medicine
PROC: 06HY33Z Insertion of Infusion Device into Lower Vein, Percutaneous Approach (ICD-10-PCS; 2023-05-06)
PROC: 5A1D70Z Performance of Urinary Filtration, Intermittent, Less than 6 Hours Per Day (ICD-10-PCS; 2023-05-06)
PROC: B5191ZZ Fluoroscopy of Inferior Vena Cava using Low Osmolar Contrast (ICD-10-PCS; principal; 2023-05-06 19:45)
PROC: 0JH63XZ Insertion of Tunneled Vascular Access Device into Chest Subcutaneous Tissue and Fascia, Percutaneous Approach (ICD-10-PCS; 2023-05-10)
PROC: 06H033Z Insertion of Infusion Device into Inferior Vena Cava, Percutaneous Approach (ICD-10-PCS; 2023-05-10)
DX: I13.2 Hypertensive heart and chronic kidney disease with heart failure and with stage 5 chronic kidney disease, or end stage renal disease (principal); I50.43 Acute on chronic combined systolic (congestive) and diastolic (congestive) heart failure; N17.0 Acute kidney failure with tubular necrosis; L89.613 Pressure ulcer of right heel, stage 3; N18.6 End stage renal disease; L03.115 Cellulitis of right lower limb; K52.1 Toxic gastroenteritis and colitis; L97.512 Non-pressure chronic ulcer of other part of right foot with fat layer exposed; E11.42 Type 2 diabetes mellitus with diabetic polyneuropathy; E11.621 Type 2 diabetes mellitus with foot ulcer; E11.22 Type 2 diabetes mellitus with diabetic chronic kidney disease; E11.610 Type 2 diabetes mellitus with diabetic neuropathic arthropathy; I27.22 Pulmonary hypertension due to left heart disease; E11.649 Type 2 diabetes mellitus with hypoglycemia without coma; E11.628 Type 2 diabetes mellitus with other skin complications; I42.9 Cardiomyopathy, unspecified; J44.9 Chronic obstructive pulmonary disease, unspecified; E11.65 Type 2 diabetes mellitus with hyperglycemia; Z79.4 Long term (current) use of insulin; Z99.2 Dependence on renal dialysis; D63.1 Anemia in chronic kidney disease; I08.1 Rheumatic disorders of both mitral and tricuspid valves; T50.2X5A Adverse effect of carbonic-anhydrase inhibitors, benzothiadiazides and other diuretics, initial encounter; F17.290 Nicotine dependence, other tobacco product, uncomplicated; E78.5 Hyperlipidemia, unspecified; D50.9 Iron deficiency anemia, unspecified; F32.A Depression, unspecified; G25.81 Restless legs syndrome; B96.5 Pseudomonas (aeruginosa) (mallei) (pseudomallei) as the cause of diseases classified elsewhere; B95.2 Enterococcus as the cause of diseases classified elsewhere; B37.2 Candidiasis of skin and nail; B96.89 Other specified bacterial agents as the cause of diseases classified elsewhere; E87.5 Hyperkalemia; E87.6 Hypokalemia; Z96.641 Presence of right artificial hip joint; Z28.310 Unvaccinated for COVID-19; Z79.84 Long term (current) use of oral hypoglycemic drugs; Z79.1 Long term (current) use of non-steroidal anti-inflammatories (NSAID); Z79.899 Other long term (current) drug therapy; Z79.891 Long term (current) use of opiate analgesic; Z86.69 Personal history of other diseases of the nervous system and sense organs; T36.0X5A Adverse effect of penicillins, initial encounter
CPT/HCPCS: 36415; 36556; 36558; 51798; 71045; 71046; 76770; 76937; 77001; 78315; 78582; 80048; 80053; 81001; 82040; 82607; 82728; 82747; 83036; 83540; 83550; 83735; 83880; 84484; 85025; 85027; 85379; 85610; 85652; 85730; 86140; 86706; 87040; 87070; 87075; 87077; 87186; 87205; 87340; 87636; 90935; 93005; 93306; 94760; 96365; 96366; 96372; 96375; 96376; 99285

== ENCOUNTER 2023-05-13 10:39 | Inpatient (IN) | payer MEDICARE, OTHER ==
[2023-05-13 10:50] LABS: Glucose,Whole Blood 420 mg/dL (70-110)
--- NOTE | 2023-05-13 11:01 | ED ---
General Adult HPI - General Chief complaint: Shortness of Breath Stated complaint: SOB,Weakness,Fever Time Seen by Provider: 05/13/23 10:50 Source: patient, RN notes reviewed, old records reviewed Mode of arrival: EMS Limitations: no limitations - History of Present Illness Initial comments: This a 57-year-old female presents emergency department with past mental history significant for diabetes and recently started dialysis and a recent diagnosis of congestive heart failure. Patient states she just got out of the hospital for congestive heart failure a few days ago. Patient states she comes back today because she is more short of breath and she states she is having the chills and she can't stop coughing. Patient denies any chest pain. Patient denies any headache patient denies numbness weakness. Patient denies any abdominal pain patient denies nausea vomiting diarrhea. Patient denies any dysuria hematuria urinary frequency. - Related Data Home Medications Medication Instructions Recorded Confirmed Atorvastatin [Lipitor] 40 mg PO DAILY 04/17/23 05/13/23 Dapagliflozin Propanediol [Farxiga] 5 mg PO DAILY 04/17/23 05/13/23 Ezetimibe [Zetia] 10 mg PO DAILY 04/17/23 05/13/23 Multivitamins, Thera [Multivitamin 1 tab PO DAILY 04/17/23 05/13/23 (formulary)] Sertraline [Zoloft] 50 mg PO DAILY 04/17/23 05/13/23 rOPINIRole HCL [Requip] 1 mg PO HS 04/17/23 05/13/23 Previous Rx's Medication Instructions Recorded Furosemide [Lasix] 60 mg PO BID@0900,1600 #90 tab 05/11/23 Gabapentin [Neurontin] 300 mg PO TID #30 cap 05/11/23 Insulin Detemir [Levemir Flexpen] 15 units SQ DAILY #7 each 05/11/23 Potassium Chloride ER [K-Dur 20] 20 meq PO DAILY #60 tab 05/11/23 carvediloL [Coreg*] 25 mg PO BID@0900,1700 #90 tab 05/11/23 hydrALAZINE HCL [Apresoline] 25 mg PO TID #90 tab 05/11/23 metOLazone [Zaroxolyn] 5 mg PO DAILY #90 tab 05/11/23 Allergies Allergy/AdvReac Type Severity Reaction Status Date / Time No Known Allergies Allergy Verified 05/13/23 12:46 Review of Systems ROS Statement: Those systems with pertinent positive or pertinent negative responses have been documented in the HPI. ROS Other: All systems not noted in ROS Statement are negative. Past Medical History Past Medical History: Diabetes Mellitus, Hyperlipidemia, Hypertension Additional Past Medical History / Comment(s): restless leg, neurothopy, Guillain-[place] History of Any Multi-Drug Resistant Organisms: None Reported Past Surgical History: Orthopedic Surgery, Tonsillectomy Additional Past Surgical History / Comment(s): "plate in left leg to straighten leg as a child" - plate removed, right total hip replacement due to a fracture from a fall Past Anesthesia/Blood Transfusion Reactions: No Reported Reaction Past Psychological History: No Psychological Hx Reported Smoking Status: Vaper Past Alcohol Use History: None Reported Past Drug Use History: None Reported General Exam - General Exam Comments Initial Comments: GENERAL: Patient is well-developed and well-nourished. Patient is nontoxic and well- hydrated and is in mild distress. Patient does have a fever ENT: Neck is soft and supple. No significant lymphadenopathy is noted. Oropharynx is clear. Moist mucous membranes. Neck has full range of motion without eliciting any pain. EYES: The sclera were anicteric and conjunctiva were pink and moist. Extraocular movements were intact and pupils were equal round and reactive to light. Eyelids were unremarkable. PULMONARY: Unlabored respirations. Good breath sounds bilaterally. Exacerbation has crackles bilaterally CARDIOVASCULAR: There is a regular rate and rhythm without any murmurs gallops or rubs. ABDOMEN: Soft and nontender with normal bowel sounds. No palpable organomegaly was noted. There is no palpable pulsatile mass. SKIN: Skin is clear with no lesions or rashes and otherwise unremarkable. NEUROLOGIC: Patient is alert and oriented x3. Cranial nerves II through XII are grossly intact. Motor and sensory are also intact. Normal speech, volume and content. Symmetrical smile. MUSCULOSKELETAL: Normal extremities with adequate strength and full range of motion. LYMPHATICS: No significant lymphadenopathy is noted PSYCHIATRIC: Normal psychiatric evaluation. Limitations: no limitations Course Vital Signs 05/13/23 05/13/23 10:42 13:52 Temperature 100.1 F H 98.7 F Pulse Rate 88 72 Respiratory 18 18 Rate Blood Pressure 172/92 148/84 O2 Sat by Pulse 92 L 96 Oximetry Medical Decision Making - Medical Decision Making EKG is interpreted by myself. EKG shows a sinus rhythm at 87 bpm OR interval 236 QRS is 85 QT interval 347 QTC is 391 per patient's EKG shows no ST segment elevation or depression. Was pt. sent in by a medical professional or institution (SILVIA Lizama, VICE PRESIDENT OF SALES, urgent care, hospital, or correction...) When possible be specific @ -No Did you speak to anyone other than the patient for history (EMS, parent, family, police, friend...)? What history was obtained from this source @ -No Did you review nursing and triage notes (agree or disagree)? Why? @ -I reviewed and agree with nursing and triage notes Were old charts reviewed (outside hosp., previous admission, EMS record, old EKG, old radiological studies, urgent care reports/EKG's, correction records)? Report findings @ -I reviewed prior notes prior charts prior labwork on this patient Differential Diagnosis (chest pain, altered mental status, abdominal pain women, abdominal pain men, vaginal bleeding, weakness, fever, dyspnea, syncope, headache, dizziness, GI bleed, back pain, seizure, CVA, palpatations, mental health, musculoskeletal)? @ -Differential Fever: Pneumonia, viral URI, endocarditis, myocarditis, pericarditis, otitis, sinusitis, peritonsillar Abscess, retropharyngeal Abscess, epiglottitis, peritonitis, appendicitis, Meryl cystitis, diverticulitis, hepatitis, colitis, UTI, PID, TOA, pyelonephritis, prostatitis, epididymitis, meningitis, encephalitis, pulmonary embolism, CVA, thyroid storm, pancreatitis, adrenal crisis, cavernous sinus thrombosis, this is not meant to be an all-inclusive list. EKG interpreted by me (3pts min.). @ -As above X-rays interpreted by me (1pt min.). @ -Chest x-ray shows Pulmonary edema CT interpreted by me (1pt min.). @ -None done U/S interpreted by me (1pt. min.). @ -None done What testing was considered but not performed or refused? (CT, X-rays, U/S, labs)? Why? @ -None What meds were considered but not given or refused? Why? @ -None Did you discuss the management of the patient with other professionals (professionals i.e. Dr., PA, VICE PRESIDENT OF SALES, lab, RT, psych nurse, addiction social worker, numerical control tool programmer, teacher, chief security officer, catalytic case operator)? Give summary @ -I spoke with Dr. Gaming about this patient and he agreed to admit the patient Was smoking cessation discussed for >3mins.? @ -No Was critical care preformed (if so, how long)? @ -No Were there social determinants of health that impacted care today? How? (Homelessness, low income, unemployed, alcoholism, drug addiction, transportation, low edu. Level, literacy, decrease access to med. care, shelter, rehab)? @ -No Was there de-escalation of care discussed even if they declined (Discuss DNR or withdrawal of care, Hospice)? DNR status @ -No What co-morbidities impacted this encounter? (DM, HTN, Smoking, COPD, CAD, Cancer, CVA, ARF, Chemo, Hep., AIDS, mental health diagnosis, sleep apnea, morbid obesity)? @ -None Was patient admitted / discharged? Hospital course, mention meds given and route, prescriptions, significant lab abnormalities, going to OR and other pertinent info. @ -Patient's chest x-ray showed mild pulmonary edema. Patient was given Lasix in the ER. Patient had no source for the fever. I will consult Dr. Mejia. I spoke with Dr. Gaming he agreed to admit the patient Undiagnosed new problem with uncertain prognosis? @ -No Drug Therapy requiring intensive monitoring for toxicity (Heparin, Nitro, Insulin, Cardizem)? @ -No Were any procedures done? @ -No Diagnosis/symptom? @ -Pulmonary edema Acute, or Chronic, or Acute on Chronic? @ -Acute Uncomplicated (without systemic symptoms) or Complicated (systemic symptoms)? @ -Complicated Side effects of treatment? @ -No Exacerbation, Progression, or Severe Exacerbation? @ -No Poses a threat to life or bodily function? How? (Chest pain, [place], PR, pneumonia, PE, COPD, DKA, ARF, appy, cholecystitis, CVA, Diverticulitis, Homicidal, Suicidal, threat to staff... and all critical care pts) @ -Yes skin lead to hypoxia and end organ dysfunction Diagnosis/symptom? @ -Hyperglycemia Acute, or Chronic, or Acute on Chronic? @ -Acute Uncomplicated (without systemic symptoms) or Complicated (systemic symptoms)? @ -Complicated Side effects of treatment? @ -none Exacerbation, Progression, or Severe Exacerbation] @ -no Poses a threat to life or bodily function? @ -no - Lab Data Result diagrams: 05/13/23 11:11 05/13/23 11:11 Lab Results 05/13/23 05/13/23 05/13/23 Range/Units 10:49 11:11 11:11 WBC 9.1 (3.8-10.6) k/uL RBC 4.02 (3.80-5.40) m/uL Hgb 10.5 L (11.4-16.0) gm/dL Hct 34.7 (34.0-46.0) % MCV 86.5 (80.0-100.0) fL MCH 26.2 (25.0-35.0) pg MCHC 30.3 L (31.0-37.0) g/dL RDW 16.2 H (11.5-15.5) % Plt Count 190 (150-450) k/uL MPV 9.5 Neutrophils % 86 % Lymphocytes % 5 % Monocytes % 5 % Eosinophils % 2 % Basophils % 1 % Neutrophils # 7.9 H (1.3-7.7) k/uL Lymphocytes # 0.5 L (1.0-4.8) k/uL Monocytes # 0.5 (0-1.0) k/uL Eosinophils # 0.2 (0-0.7) k/uL Basophils # 0.0 (0-0.2) k/uL Hypochromasia Marked Anisocytosis Slight PT 11.5 (10.0-12.5) sec INR 1.1 (<1.2) APTT 24.9 (22.0-30.0) sec Sodium (137-145) mmol/L Potassium (3.5-5.1) mmol/L Chloride (98-107) mmol/L Carbon Dioxide (22-30) mmol/L Anion Gap mmol/L BUN (7-17) mg/dL Creatinine (0.52-1.04) mg/dL Est GFR (CKD-EPI)AfAm (>60 ml/min/1.73 sqM) Est GFR (CKD-EPI)NonAf (>60 ml/min/1.73 sqM) Glucose (74-99) mg/dL POC Glucose (mg/dL) 420 H (70-110) mg/dL POC Glu [employer] ID July Plasma Lactic Acid [place] (0.7-2.0) mmol/L Calcium (8.4-10.2) mg/dL Total Bilirubin (0.2-1.3) mg/dL AST (14-36) U/L ALT (4-34) U/L Alkaline Phosphatase (38-126) U/L Total Protein (6.3-8.2) g/dL Albumin (3.5-5.0) g/dL Influenza Type A (PCR) (Not Detectd) Influenza Type B (PCR) (Not Detectd) RSV (PCR) (Not Detectd) SARS-CoV-2 (PCR) (Not Detectd) 05/13/23 05/13/23 05/13/23 Range/Units 11:11 11:11 11:11 WBC (3.8-10.6) k/uL RBC (3.80-5.40) m/uL Hgb (11.4-16.0) gm/dL Hct (34.0-46.0) % MCV (80.0-100.0) fL MCH (25.0-35.0) pg MCHC (31.0-37.0) g/dL RDW (11.5-15.5) % Plt Count (150-450) k/uL MPV Neutrophils % % Lymphocytes % % Monocytes % % Eosinophils % % Basophils % % Neutrophils # (1.3-7.7) k/uL Lymphocytes # (1.0-4.8) k/uL Monocytes # (0-1.0) k/uL Eosinophils # (0-0.7) k/uL Basophils # (0-0.2) k/uL Hypochromasia Anisocytosis PT (10.0-12.5) sec INR (<1.2) APTT (22.0-30.0) sec Sodium 137 (137-145) mmol/L Potassium 4.6 (3.5-5.1) mmol/L Chloride 102 (98-107) mmol/L Carbon Dioxide 25 (22-30) mmol/L Anion Gap 10 mmol/L BUN 23 H (7-17) mg/dL Creatinine 1.64 H (0.52-1.04) mg/dL Est GFR (CKD-EPI)AfAm 40 (>60 ml/min/1.73 sqM) Est GFR (CKD-EPI)NonAf 34 (>60 ml/min/1.73 sqM) Glucose 436 H (74-99) mg/dL POC Glucose (mg/dL) (70-110) mg/dL POC Glu [employer] ID Plasma Lactic Acid [place] 1.0 (0.7-2.0) mmol/L Calcium 9.1 (8.4-10.2) mg/dL Total Bilirubin 0.8 (0.2-1.3) mg/dL AST 19 (14-36) U/L ALT 19 (4-34) U/L Alkaline Phosphatase 199 H (38-126) U/L Total Protein 8.1 (6.3-8.2) g/dL Albumin 3.9 (3.5-5.0) g/dL Influenza Type A (PCR) Not Detected (Not Detectd) Influenza Type B (PCR) Not Detected (Not Detectd) RSV (PCR) Not Detected (Not Detectd) SARS-CoV-2 (PCR) Not Detected (Not Detectd) Disposition Clinical Impression: Fever of unknown origin, Hyperglycemia, Pulmonary edema Disposition: ADMITTED IP TO THIS HOSP Referrals: Fadi Nolen DO [Primary Care Provider] - 1-2 days Time of Disposition: 14:20
[2023-05-13] MEDS: ACETAMINOPHEN TAB 500 MG TAB PO STA (11:19)
[2023-05-13] MEDS: IBUPROFEN 600 MG TAB PO STA (11:19)
[2023-05-13 11:38] LABS: Anisocytosis Slight; Basophils % (A) 1 %; Eosinophils # (A) 0.2 k/uL (0-0.7); Eosinophils % (A) 2 %; HCT 34.7 % (34.0-46.0); HGB 10.5 gm/dL (11.4-16.0); Hypochromasia Marked; Lymphocytes # (A) 0.5 k/uL (1.0-4.8); Lymphocytes % (A) 5 %; MCH 26.2 pg (25.0-35.0); MCHC 30.3 g/dL (31.0-37.0); MCV 86.5 fL (80.0-100.0); Mean Platelet Volume 9.5; Monocytes # (A) 0.5 k/uL (0-1.0); Monocytes % (A) 5 %; Neutrophils # (A) 7.9 k/uL (1.3-7.7); Neutrophils % (A) 86 %; Platelet Count 190 k/uL (150-450); RBC 4.02 m/uL (3.80-5.40); RDW 16.2 % (11.5-15.5); WBC 9.1 k/uL (3.8-10.6)
[2023-05-13 11:40] LABS: ALT 19 U/L (4-34); AST 19 U/L (14-36); African American GFR (CKD) 40 (>60 ml/min/1.73 sqM); Albumin 3.9 g/dL (3.5-5.0); Alkaline Phosphatase 199 U/L (38-126); Anion Gap 10 mmol/L; Blood Urea Nitrogen 23 mg/dL (7-17); Calcium 9.1 mg/dL (8.4-10.2); Carbon Dioxide 25 mmol/L (22-30); Chloride 102 mmol/L (98-107); Glucose 436 mg/dL (74-99); Non-African American GFR(CKD) 34 (>60 ml/min/1.73 sqM); Potassium 4.6 mmol/L (3.5-5.1); Sodium 137 mmol/L (137-145); Total Bilirubin 0.8 mg/dL (0.2-1.3); Total Protein 8.1 g/dL (6.3-8.2)
--- NOTE | 2023-05-13 11:41 | XR ---
EXAMINATION TYPE: XR chest 2V DATE OF EXAM: 05/13/2023 COMPARISON: 05/10/2023 TECHNIQUE: PA and lateral views submitted. HISTORY: Shortness of breath FINDINGS: The lungs are clear and there is no pneumothorax, pleural effusion, or focal pneumonia. Heart size normal and no overt failure. Osseous structures demonstrate hypertrophic and degenerative changes of the spine. Dialysis catheter in good position. Atherosclerotic change aorta. IMPRESSION: 1. The findings are suggestive of CHF..
[2023-05-13 12:02] LABS: INR 1.1 (<1.2); Partial Thromboplastin Time 24.9 sec (22.0-30.0); Prothrombin Time 11.5 sec (10.0-12.5)
[2023-05-13] MEDS: INSULIN ASPART (NovoLOG) 100 UNIT/ML VIAL SQ ONE (14:15)
[2023-05-13 15:01] LABS: Glucose,Whole Blood 365 mg/dL (70-110)
[2023-05-13] MEDS: FUROSEMIDE 10 MG/ML 4 ML VIAL IV SCH (15:26)
[2023-05-13 15:52] LABS: Appearance,Urine Cloudy (Clear); Bacteria,Urine Few /hpf; Bilirubin,Urine Negative (Negative); Blood,Urine Small (Negative); Color,Urine Yellow; Glucose,Urine (UA) 4+ (Negative); Hyaline Casts,Urine 3 /lpf (0-2); Ketones,Urine Negative (Negative); Leukocyte Esterase,Urine Negative (Negative); Mucus,Urine Occasional /hpf; Nitrite,Urine Negative (Negative); Protein,Urine 2+ (Negative); RBC,Urine 105 /hpf (0-5); Specific Gravity,Urine 1.017 (1.001-1.035); Squamous Epithelial Cell,Urine 1 /hpf (0-4); Urobilinogen,Urine <2.0 mg/dL (<2.0)
[2023-05-13] MEDS: NITROGLYCERIN OINT 1 INCH/GM PACKET TOPICAL SCH (18:34)
--- NOTE | 2023-05-13 20:17 | CT ---
EXAMINATION TYPE: CT chest wo con CT DLP: 297 mGycm, Automated exposure control for dose reduction was used. DATE OF EXAM: 05/13/2023 7:28 PM COMPARISON: Chest radiograph from same day. CLINICAL INDICATION:Female, 57 years old with history of pleural effusion; PHH, SOB, pleural effusion , history of Guillain-[place]. TECHNIQUE: Multiple axial images were obtained through the chest. Sagittal and coronal reformats were created for review. Contrast used: mL of (None if empty) Oral contrast used: (None if empty) FINDINGS: LUNGS/ PLEURA: Small bilateral pleural effusions with associated atelectasis. No airspace consolidati on. There is interstitial lobular thickening. AIRWAY: Patent and unremarkable. HEART: Heart is mildly enlarged for size. There is severe coronary artery atherosclerosis. MEDIASTINUM: Partially calcified lymph nodes are seen in bilateral pulmonary [place] and throughout the mediastinum. Enlarged lymph nodes in the prevascular space measuring up to 18 mm. VASCULATURE: No aortic aneurysm. Central venous catheter tip terminating in the superior vena cava. MUSCULOSKELETAL: No acute osseous abnormalities SOFT TISSUES/LYMPH NODES: Prominent lymph nodes in the bilateral axillae is, mediastinum present. Wit hin the right axilla measuring up tor 10 mm in the left axilla measuring up to 9 mm in short axis. Di ffuse subcutaneous changes edema/anasarca. LOWER NECK: No significant findings. UPPER ABDOMEN:Gallstones in the gallbladder lumen. IMPRESSION: 1. Small bilateral pleural effusions with anasarca and cardiomegaly. Correlate for congestive heart failure. 2. Right central venous catheter with tip in the superior vena cava. 3. Lymphadenopathy scattered throughout which could be secondary to third spacing of fluid. Consider short-term follow-up in one month. 4. Severe coronary artery atherosclerosis.
[2023-05-13] MEDS ORDERED: GABAPENTIN 300 MG CAP PO SCH (22:00)
--- NOTE | 2023-05-13 22:20 | P.CONS ---
History of Present Illness - Reason for Consult Consult date: 05/13/23 Fever of unknown origin Requesting physician: Pablo Darnell - Chief Complaint Increasing shortness of breath x few days - History of Present Illness Patient is a 57-year-old female with a past medical history significant for diabetes mellitus, hypertension right heel diabetic foot wound and cellulitis with recent admission to the hospital local culture positive for Pseudomonas Enterococcus and the patient received 3-week course of IV Zosyn during the hospital stay the patient also developed renal failure requiring dialysis initiation patient was just discharged from the hospital now presenting back to the hospital concerning for increasing shortness of breath that has been getting worse for the last day or 2, the patient is also complaining of chills and did have a fever at home patient also complaining of cough moderate intensity but not bring up any sputum patient denies having any nausea vomiting no abdominal pain no diarrhea and denies pain to the right heel wound on presentation to the hospital the patient did have a low-grade fever 100.1 F, patient also noted to be mildly hypoxic with O2 sats of 90 to 91% and has been placed on 3 L nasal cannula oxygen patient did have white count 9.1 BUN/creatinine has been elevated with subsequent normal urine has been mostly hematuria influenza RSV and COVID testing was negative patient did have a chest x-ray finding is suggestive of CHF, patient was started on Rocephin infectious disease was consulted for further management Review of Systems Positive point and negatives has been mentioned in the HPI, complete review of systems was performed and all other systems are negative Past Medical History Past Medical History: Diabetes Mellitus, Hyperlipidemia, Hypertension Additional Past Medical History / Comment(s): restless leg, neurothopy, Guillain-[place] History of Any Multi-Drug Resistant Organisms: None Reported Past Surgical History: Orthopedic Surgery, Tonsillectomy Additional Past Surgical History / Comment(s): "plate in left leg to straighten leg as a child" - plate removed, right total hip replacement due to a fracture from a fall Past Anesthesia/Blood Transfusion Reactions: No Reported Reaction Past Psychological History: No Psychological Hx Reported Smoking Status: Vaper Past Alcohol Use History: None Reported Past Drug Use History: None Reported Medications and Allergies Home Medications Medication Instructions Recorded Confirmed Type Atorvastatin [Lipitor] 40 mg PO DAILY 04/17/23 05/13/23 History Dapagliflozin Propanediol [Farxiga] 5 mg PO DAILY 04/17/23 05/13/23 History Ezetimibe [Zetia] 10 mg PO DAILY 04/17/23 05/13/23 History Multivitamins, Thera [Multivitamin 1 tab PO DAILY 04/17/23 05/13/23 History (formulary)] Sertraline [Zoloft] 50 mg PO DAILY 04/17/23 05/13/23 History rOPINIRole HCL [Requip] 1 mg PO HS 04/17/23 05/13/23 History Gabapentin [Neurontin] 300 mg PO TID #30 cap 05/11/23 05/13/23 Rx carvediloL [Coreg*] 25 mg PO BID@0900,1700 #90 tab 05/11/23 05/13/23 Rx Moxifloxacin HCl [Avelox] 400 mg PO DAILY #5 tab 05/21/23 Rx Acetaminophen Tab [Tylenol] 500 mg PO Q6HR PRN tab 05/24/23 Rx Budesonide [Pulmicort] 0.5 mg INHALATION RT-BID 90 Days 05/24/23 Rx #180 ml INSULIN ASPART (NovoLOG) [NovoLOG 2 unit SQ AC-TID each 05/24/23 Rx (formulary)] Ipratropium-Albuterol Nebulize 3 ml INHALATION RT-QID 90 Days 05/24/23 Rx [Duoneb 0.5 mg-3 mg/3 ml Soln] #360 each Isosorbide Mononitrate ER [Imdur] 15 mg PO DAILY 90 Days #90 tab 05/24/23 Rx Torsemide [Demadex] 40 mg PO DAILY 90 Days #90 tab 05/24/23 Rx hydrALAZINE HCL [Apresoline] 50 mg PO TID 90 Days #270 tab 05/24/23 Rx Allergies Allergy/AdvReac Type Severity Reaction Status Date / Time No Known Allergies Allergy Verified 05/13/23 12:46 Physical Exam Vitals: Vital Signs Temp Pulse Resp BP Pulse Ox 05/13/23 15:27 73 18 147/81 96 05/13/23 13:52 98.7 F 72 18 148/84 96 05/13/23 10:42 100.1 F H 88 18 172/92 92 L Intake and Output 05/13/23 05/13/23 05/13/23 06:59 14:59 22:59 Other: Weight 66.224 kg GENERAL DESCRIPTION: Middle-aged female lying in bed, no distress. No tachypnea or accessory muscle of respiration use. HEENT: Shows Pallor , no scleral icterus. Oral mucous membrane is dry. No pharyngeal erythema or thrush NECK: Trachea central, no thyromegaly. LUNGS: Unlabored breathing. Decreased breath sound the base. HEART: S1, S2, regular rate and rhythm. No loud murmur ABDOMEN: Soft, no tenderness , guarding or rigidity, no organomegaly EXTREMITIES: Right heel wound with no significant slough tissue surrounding redness or foul-smelling drainage SKIN: No rash, no masses palpable. NEUROLOGICAL: The patient is awake, alert, oriented x3, mood and affect normal. Results CBC & Chem 7: 05/31/23 05:08 05/31/23 05:08 Labs: Abnormal Lab Results - Last 24 Hours (Table) 05/13/23 05/13/23 05/13/23 Range/Units 10:49 11:11 11:11 Hgb 10.5 L (11.4-16.0) gm/dL MCHC 30.3 L (31.0-37.0) g/dL RDW 16.2 H (11.5-15.5) % Neutrophils # 7.9 H (1.3-7.7) k/uL Lymphocytes # 0.5 L (1.0-4.8) k/uL BUN 23 H (7-17) mg/dL Creatinine 1.64 H (0.52-1.04) mg/dL Glucose 436 H (74-99) mg/dL POC Glucose (mg/dL) 420 H (70-110) mg/dL Alkaline Phosphatase 199 H (38-126) U/L Urine Appearance (Clear) Urine Protein (Negative) Urine Glucose (UA) (Negative) Urine Blood (Negative) Urine RBC (0-5) /hpf Urine Bacteria (None) /hpf Hyaline Casts (0-2) /lpf Urine Mucus (None) /hpf 05/13/23 05/13/23 Range/Units 14:59 15:15 Hgb (11.4-16.0) gm/dL MCHC (31.0-37.0) g/dL RDW (11.5-15.5) % Neutrophils # (1.3-7.7) k/uL Lymphocytes # (1.0-4.8) k/uL BUN (7-17) mg/dL Creatinine (0.52-1.04) mg/dL Glucose (74-99) mg/dL POC Glucose (mg/dL) 365 H (70-110) mg/dL Alkaline Phosphatase (38-126) U/L Urine Appearance Cloudy H (Clear) Urine Protein 2+ H (Negative) Urine Glucose (UA) 4+ H (Negative) Urine Blood Small H (Negative) Urine RBC 105 H (0-5) /hpf Urine Bacteria Few H (None) /hpf Hyaline Casts 3 H (0-2) /lpf Urine Mucus Occasional H (None) /hpf Assessment and Plan (1) Fever Status: Acute Code(s): R50.9 - FEVER, UNSPECIFIED SNOMED Code(s): 721723538 (2) Pressure ulcer of right heel, stage 3 Status: Acute Code(s): L89.613 - PRESSURE ULCER OF RIGHT HEEL, STAGE 3 SNOMED Code(s): 18017848715647 Plan: 1-patient presented to hospital with fever also complaining of increasing shortness of breath and cough however the chest x-ray is mostly suggestive of CHF rather than pneumonia 2-patient did have right heel wound which seem to be healing well with no evidence of any cellulitis 3-we will check CRP procalcitonin urine for Legionella antigen and sputum culture 4-continue with the Rocephin and Zithromax while awaiting further workup to be completed 5-local wound care to the right heel with Aquacel silver dressing change every 48 hour We will follow on clinical condition and cultures to further adjust medication if needed Thank you for this consultation we will follow the patient along with you Dictation was produced using [employer] dictation software. please excuse any grammatical, word or spelling errors. Time with Patient: Greater than 30
[2023-05-13] MEDS: hydrALAZINE HCL 25 MG TAB PO SCH (22:21)
[2023-05-13] MEDS: AZITHROMYCIN 500 MG TAB PO STA (23:14)
[2023-05-13] MEDS: GABAPENTIN 300 MG CAP PO SCH (23:14)
--- NOTE | 2023-05-13 23:55 | HP ---
HISTORY AND PHYSICAL HISTORY OF PRESENT ILLNESS: This is a 57-year-old white female, came to the ER, with significant diabetes, recently started on dialysis, and has congestive heart failure. She was in the hospital for CHF a few days ago, she came back for shortness of breath, cough, congestion. Denies any numbness or weakness. Denies any diarrhea, frequency, urgency, or hesitancy. MEDICATIONS: 1. Farxiga 5 mg daily. 2. Zetia 10 mg daily. 3. Multivitamin daily. 4. Requip 1 mg daily. 5. Lipitor 40 daily. 6. Zoloft 50 daily. 7. Levemir 15 units daily. 8. Coreg 25 b.i.d. 9. Hydralazine 25 t.i.d. 10.Celexa 5 mg daily. 11.Lasix 60 b.i.d. 12.Neurontin 300 t.i.d. PAST MEDICAL HISTORY: Diabetes mellitus, dyslipidemia, hypertension, restless legs, neuropathy, and Guillain- [place]?. PAST SURGICAL HISTORY: Tonsillectomy, orthopedic surgery. PHYSICAL EXAMINATION: GENERAL: Well developed, well nourished, in mild distress. NECK: Supple, no mass. HEENT: Eyes, pupils equal, round, and reactive. LUNGS: Show decreased breath sounds, unlabored breathing. HEART: Regular rate and rhythm. ABDOMEN: Soft, nontender. SKIN: Warm, dry. NEUROLOGIC: Cranial nerves intact, alert and oriented x3. MUSCULOSKELETAL: Range of motion full x4. LYMPHATICS: No lymphadenopathy. PSYCH: VITAL SIGNS: Temp 100.1 fever, pulse 88, blood pressure 132/92, O2 92 on room air, and respiratory rate 16 to 18. Probably mild CHF, probable rule out pneumonia PT OT broad-spectrum antibiotics updraft, etc. Prognosis guarded. Please see further orders. Dialysis as tolerated, diabetic control. Prognosis guarded. MMODL / IJN: [id number] /
[2023-05-14 02:51] LABS: ALT 16 U/L (4-34); AST 19 U/L (14-36); African American GFR (CKD) 38 (>60 ml/min/1.73 sqM); Albumin 3.3 g/dL (3.5-5.0); Alkaline Phosphatase 171 U/L (38-126); Anion Gap 5 mmol/L; Blood Urea Nitrogen 26 mg/dL (7-17); C Reactive Protein 4.4 mg/dL (<1.0); Calcium 8.7 mg/dL (8.4-10.2); Carbon Dioxide 26 mmol/L (22-30); Chloride 103 mmol/L (98-107); Glucose 174 mg/dL (74-99); Non-African American GFR(CKD) 33 (>60 ml/min/1.73 sqM); Potassium 4.8 mmol/L (3.5-5.1); Sodium 134 mmol/L (137-145); Total Bilirubin 0.6 mg/dL (0.2-1.3); Total Protein 6.9 g/dL (6.3-8.2)
[2023-05-14 03:32] LABS: Glucose,Whole Blood 201 mg/dL (70-110)
[2023-05-14] MEDS: ACETAMINOPHEN TAB 500 MG TAB PO PRN (04:03)
[2023-05-14 06:09] LABS: Glucose,Whole Blood 190 mg/dL (70-110)
[2023-05-14] MEDS: INSULIN DETEMIR (LEVEMIR) 100 UNIT/ML SYR SQ SCH (06:41)
--- NOTE | 2023-05-14 08:20 | P.CNPUL ---
History of Present Illness Consult date: 05/14/23 Requesting physician: Darnell Gaming Reason for consult: dyspnea Chief complaint: Shortness of breath History of present illness: I am seeing this patient in new consultation today 05/14/2023 mostly for increased shortness of breath. Patient is a 57-year-old white female past medical history significant for recent prolonged hospitalization for CHF and right foot wound, which was treated inpatient with antibiotics. Subsequently, developing acute renal failure requiring hemodialysis catheter placement on May 10. She was discharged on May 11. Other past medical history includes CHF, diabetes mellitus, hypertension, hyperlipidemia COPD, and tobacco dependence. Patient presented the hospital yesterday morning complaining of progressively worsening shortness of breath since her recent hospital discharge 2 days prior. She does have right IJ hemodialysis catheter, and was scheduled to start a HD schedule today. She still produces urine. She is currently lying in bed, on 3 L/m nasal cannula, in no acute distress. She denies any chest pain, heart palpitations, syncope, lower extremity swelling. Admits chronic cough, mostly nonproductive, with occasional clear sputum production. Denies any fevers at home, however, was noted to have mild fever of 100.1F on arrival. Chest x-ray showed a stable heart with interstitial changes. No focal infiltrates. Follow-up Chest CT demonstrates borderline cardiomegaly and small bilateral effusions. Partially calcified mediastinal and hilar lymph nodes. There is scattered lymphadenopathy throughout which could be secondary to third spacing of fluid. There is also severe coronary atherosclerosis. CBC on arrival: WBC count 9.1, hemoglobin 10.5, hematocrit 34.7, platelets 190. BMP arrival: Sodium 137, potassium 4.6, chloride 100, serum bicarbonate 25, BUN 23, creatinine 1.64, glucose 436. Lactic acid level I. Urinalysis not concerning for UTI. Negative for influenza, RSV, COVID-19. Vital signs are stable. Review of Systems REVIEW OF SYSTEMS: CONSTITUTIONAL: Denies any recent significant weight loss or weight gain. EYES: Denies change in vision. EARS, NOSE, MOUTH, THROAT: Denies headaches, denies sore throat. CARDIOVASCULAR: Denies chest pain, palpitations or syncopal episodes. RESPIRATORY: See HPI GASTROINTESTINAL: Denies change in appetite, abdominal pain, vomiting, or diarrhea . Admits some nausea, without vomiting. Admits occasional bright red stools and history of hemorrhoids. GENITOURINARY: Denies hematuria, denies infections. MUSKULOSKELETAL: Denies pain, denies swelling. INTEGUMENTARY: Denies rash, denies eczema. NEUROLOGICAL: Denies recent memory loss, no recent seizure activity. PSYCHIATRIC: Denies anxiety, denies depression. HEMATOLOGIC/LYMPHATIC: Denies anemia, denies enlarged lymph node Past Medical History Past Medical History: Diabetes Mellitus, Hyperlipidemia, Hypertension Additional Past Medical History / Comment(s): restless leg, neurothopy, Guillain-[place] History of Any Multi-Drug Resistant Organisms: None Reported Past Surgical History: Orthopedic Surgery, Tonsillectomy Additional Past Surgical History / Comment(s): "plate in left leg to straighten leg as a child" - plate removed, right total hip replacement due to a fracture from a fall Past Anesthesia/Blood Transfusion Reactions: No Reported Reaction Past Psychological History: No Psychological Hx Reported Smoking Status: Former smoker Past Alcohol Use History: None Reported Past Drug Use History: None Reported Medications and Allergies Home Medications Medication Instructions Recorded Confirmed Type Atorvastatin [Lipitor] 40 mg PO DAILY 04/17/23 05/13/23 History Dapagliflozin Propanediol [Farxiga] 5 mg PO DAILY 04/17/23 05/13/23 History Ezetimibe [Zetia] 10 mg PO DAILY 04/17/23 05/13/23 History Multivitamins, Thera [Multivitamin 1 tab PO DAILY 04/17/23 05/13/23 History (formulary)] Sertraline [Zoloft] 50 mg PO DAILY 04/17/23 05/13/23 History rOPINIRole HCL [Requip] 1 mg PO HS 04/17/23 05/13/23 History Furosemide [Lasix] 60 mg PO BID@0900,1600 #90 tab 05/11/23 05/13/23 Rx Gabapentin [Neurontin] 300 mg PO TID #30 cap 05/11/23 05/13/23 Rx Insulin Detemir [Levemir Flexpen] 15 units SQ DAILY #7 each 05/11/23 05/13/23 Rx Potassium Chloride ER [K-Dur 20] 20 meq PO DAILY #60 tab 05/11/23 05/13/23 Rx carvediloL [Coreg*] 25 mg PO BID@0900,1700 #90 tab 05/11/23 05/13/23 Rx hydrALAZINE HCL [Apresoline] 25 mg PO TID #90 tab 05/11/23 05/13/23 Rx metOLazone [Zaroxolyn] 5 mg PO DAILY #90 tab 05/11/23 05/13/23 Rx Allergies Allergy/AdvReac Type Severity Reaction Status Date / Time No Known Allergies Allergy Verified 05/13/23 12:46 Physical Exam Vitals: Vital Signs Temp Pulse Pulse Resp BP BP Pulse Ox 05/14/23 00:30 97.7 F 89 18 138/72 96 05/13/23 18:00 68 153/82 98 05/13/23 17:00 71 156/83 98 05/13/23 16:00 71 167/85 97 05/13/23 15:27 73 18 147/81 96 05/13/23 15:00 73 160/87 05/13/23 14:00 73 148/84 95 05/13/23 13:52 98.7 F 72 18 148/84 96 05/13/23 13:00 73 164/85 95 05/13/23 12:00 78 189/92 95 05/13/23 11:00 170/108 05/13/23 10:53 170/108 93 L 05/13/23 10:42 100.1 F H 88 18 172/92 92 L Intake and Output 05/13/23 05/13/23 05/14/23 14:59 22:59 06:59 Other: Weight 66.224 kg 66.224 kg NGENERAL EXAM: Alert, 57-year-old white female, comfortable in no apparent distress. HEAD: Normocephalic and atraumatic EYES: Normal reaction of pupils, equal size. NOSE: Clear with pink turbinates. THROAT: No erythema or exudates. NECK: No masses, no JVD. CHEST: No chest wall deformity. LUNGS: Equal air entry with faint end expiratory wheezes. No crackles, rhonchi, or focal dullness. On 3 L/m nasal cannula. No conversational dyspnea or accessory muscle use.. CVS: S1 and S2 normal with grade III systolic murmur, regular rhythm. No other extra heart sounds ABDOMEN: No hepatosplenomegaly, active bowel sounds, no guarding or rigidity. SPINE: No scoliosis or deformity SKIN: No rashes. CENTRAL NERVOUS SYSTEM: No focal deficits, tone is normal in all 4 extremities. EXTREMITIES: There is no peripheral edema, clubbing, or cyanosis. Peripheral pulses are intact. Right dorsal foot wound/laceration, healing no evidence of cellulitis. Right heel pressure injury Results - Laboratory Findings CBC and BMP: 05/13/23 11:11 05/14/23 02:16 PT/INR, D-dimer PT 11.5 sec (10.0-12.5) 05/13/23 11:11 INR 1.1 (<1.2) 05/13/23 11:11 Abnormal lab findings: Abnormal Labs 05/13/23 05/13/23 05/13/23 10:49 11:11 11:11 Hgb 10.5 L MCHC 30.3 L RDW 16.2 H Neutrophils # 7.9 H Lymphocytes # 0.5 L BUN 23 H Creatinine 1.64 H Glucose 436 H POC Glucose (mg/dL) 420 H Alkaline Phosphatase 199 H Urine Appearance Urine Protein Urine Glucose (UA) Urine Blood Urine RBC Urine Bacteria Hyaline Casts Urine Mucus 05/13/23 05/13/23 14:59 15:15 Hgb MCHC RDW Neutrophils # Lymphocytes # BUN Creatinine Glucose POC Glucose (mg/dL) 365 H Alkaline Phosphatase Urine Appearance Cloudy H Urine Protein 2+ H Urine Glucose (UA) 4+ H Urine Blood Small H Urine RBC 105 H Urine Bacteria Few H Hyaline Casts 3 H Urine Mucus Occasional H - Diagnostic Findings Chest x-ray: image reviewed CT scan - chest: image reviewed Assessment and Plan Assessment: Acute hypoxemic respiratory failure, likely related to underlying systolic congestive heart failure/fluid overload. Follow-up Chest CT demonstrates borderline cardiomegaly and small bilateral effusions and associated atelectasis. Partially calcified mediastinal and hilar lymphadenopathy. There are scattered lymphadenopathy throughout which could be secondary to third spacing of fluid or above. There is also severe coronary atherosclerosis. Recent echocardiogram from 04/20/2023 shows a moderately impaired left ventricular systolic ejection fraction of 40-45%, moderate mitral and tricuspid regurgitation, along with severe pulmonary hypertension. Partially calcified mediastinal and hilar lymphadenopathy. Differential includes prior granulomatous disease, pulmonary sarcoidosis, silicosis, etc. Acute febrile illness, unknown origin Acute on likely chronic kidney disease, status/post hemodialysis catheter inserted on May 10, renal function appears to be improving Chronic right heel wound, no evidence of cellulitis Chronic anemia Diabetes mellitus type 2 Hypertension Hyperlipidemia Chronic tobacco dependence, reportedly quitting 5 days ago. Plan: Patient's medications, labs, imaging reviewed Continue supplemental oxygen Continue empiric antibiotics for now, no obvious evidence of pneumonia. Procalcitonin level pending. Blood cultures pending. Infectious disease following. Negative for influenza, RSV, COVID-19 The patient is receiving Lasix 40 mg twice a day. She is not anuric. Also has a right hemodialysis catheter. Consult nephrology for management. We will continue to follow and further recommendations are forthcoming I have personally seen and examined the patient, performed the documentation and the assessment and plan as written. Number of minutes spent on the visit:20 5 Time with Patient: Greater than 30
[2023-05-14] MEDS: ATORVASTATIN 40 MG TAB PO SCH (08:43)
[2023-05-14] MEDS: DAPAGLIFLOZIN PROPANEDIOL 5 MG TABLET PO SCH (08:43)
[2023-05-14] MEDS: metOLazone 5 MG TAB PO SCH (08:43)
[2023-05-14] MEDS: EZETIMIBE 10 MG TAB PO SCH (08:43)
[2023-05-14] MEDS: carvediloL 12.5 MG TAB PO SCH (08:43)
[2023-05-14] MEDS: SERTRALINE 50 MG TAB PO SCH (08:43)
[2023-05-14] MEDS: MULTIVITAMINS, THERA 1 EACH TAB PO SCH (08:43)
[2023-05-14] MEDS: POTASSIUM CHLORIDE ER 20 MEQ TAB.ER PO SCH (08:43)
[2023-05-14] MEDS: FUROSEMIDE 10 MG/ML 10 ML VIAL IV SCH (08:56)
[2023-05-14] MEDS ORDERED: FUROSEMIDE 20 MG TAB PO SCH (09:00)
[2023-05-14] MEDS: IPRATROPIUM-ALBUTEROL 3 ML NEB INHALATION SCH (09:38)
[2023-05-14 09:45] LABS: Anisocytosis Slight; Basophils % (A) 1 %; Eosinophils % (A) 1 %; HCT 28.2 % (34.0-46.0); Hypochromasia Marked; Lymphocytes # (A) 0.4 k/uL (1.0-4.8); Lymphocytes % (A) 10 %; MCH 26.4 pg (25.0-35.0); MCHC 30.9 g/dL (31.0-37.0); MCV 85.6 fL (80.0-100.0); Mean Platelet Volume 8.8; Monocytes # (A) 0.2 k/uL (0-1.0); Monocytes % (A) 6 %; Neutrophils # (A) 3.2 k/uL (1.3-7.7); Neutrophils % (A) 80 %; Platelet Count 143 k/uL (150-450); RBC 3.29 m/uL (3.80-5.40); RDW 16.6 % (11.5-15.5)
[2023-05-14 09:48] LABS: HGB 8.7 gm/dL (11.4-16.0)
[2023-05-14 11:55] LABS: Glucose,Whole Blood 191 mg/dL (70-110)
--- NOTE | 2023-05-14 12:06 | P.NPCON ---
History of Present Illness - Reason for Consult acute renal failure, chronic renal failure - History of Present Illness Reason for consultation: Acute kidney injury, hemodialysis dependent History of present illness: Patient is a 57-year-old female seen in consultation for acute kidney injury, hemodialysis dependent. Patient was started on hemodialysis 05/07/2023 due to persistent volume overload and low urine output. Patient has history of systolic CHF with ejection fraction of 40-45% with severe pulmonary hypertension. Patient came to the hospital because of shortness of breath and cough. This is per ER note. Patient states she doesn't remember why she came to the hospital. Blood pressure stable. She did have a temperature of 101.2F this morning. Chest x-ray and CT suggestive of CHF. Patient tested negative for influenza, RSV and COVID-19. Patient was set up to start hemodialysis today for her first outpatient treatment. She is scheduled to be on a Saturday schedule. Currently she is on 4 L nasal cannula. She denies history of coronary artery disease. Patient does a long-standing. Diabetes. Patient states she has been making urine but small amount. Vital signs are stable. General: No acute distress. HEENT: Head exam is unremarkable. On nasal cannula. LUNGS: No audible rhonchi or wheezes. HEART: Rate and Rhythm are regular. ABDOMEN: Nontender. EXTREMITITES: 1+ edema. Past Medical History Past Medical History: Diabetes Mellitus, Hyperlipidemia, Hypertension Additional Past Medical History / Comment(s): restless leg, neurothopy, Guillain-[place] History of Any Multi-Drug Resistant Organisms: None Reported Past Surgical History: Orthopedic Surgery, Tonsillectomy Additional Past Surgical History / Comment(s): "plate in left leg to straighten leg as a child" - plate removed, right total hip replacement due to a fracture from a fall Past Anesthesia/Blood Transfusion Reactions: No Reported Reaction Past Psychological History: No Psychological Hx Reported Smoking Status: Former smoker Past Alcohol Use History: None Reported Past Drug Use History: None Reported Medications and Allergies Home Medications Medication Instructions Recorded Confirmed Type Atorvastatin [Lipitor] 40 mg PO DAILY 04/17/23 05/13/23 History Dapagliflozin Propanediol [Farxiga] 5 mg PO DAILY 04/17/23 05/13/23 History Ezetimibe [Zetia] 10 mg PO DAILY 04/17/23 05/13/23 History Multivitamins, Thera [Multivitamin 1 tab PO DAILY 04/17/23 05/13/23 History (formulary)] Sertraline [Zoloft] 50 mg PO DAILY 04/17/23 05/13/23 History rOPINIRole HCL [Requip] 1 mg PO HS 04/17/23 05/13/23 History Furosemide [Lasix] 60 mg PO BID@0900,1600 #90 tab 05/11/23 05/13/23 Rx Gabapentin [Neurontin] 300 mg PO TID #30 cap 05/11/23 05/13/23 Rx Insulin Detemir [Levemir Flexpen] 15 units SQ DAILY #7 each 05/11/23 05/13/23 Rx Potassium Chloride ER [K-Dur 20] 20 meq PO DAILY #60 tab 05/11/23 05/13/23 Rx carvediloL [Coreg*] 25 mg PO BID@0900,1700 #90 tab 05/11/23 05/13/23 Rx hydrALAZINE HCL [Apresoline] 25 mg PO TID #90 tab 05/11/23 05/13/23 Rx metOLazone [Zaroxolyn] 5 mg PO DAILY #90 tab 05/11/23 05/13/23 Rx Allergies Allergy/AdvReac Type Severity Reaction Status Date / Time No Known Allergies Allergy Verified 05/13/23 12:46 Physical Exam Vitals: Vital Signs Temp Pulse Pulse Resp BP BP Pulse Ox 05/14/23 11:47 97.7 F 70 15 125/73 97 05/14/23 08:40 98.1 F 76 20 117/60 95 05/14/23 04:01 101.2 F H 88 18 125/71 96 05/14/23 00:30 97.7 F 89 18 138/72 96 05/13/23 18:00 68 153/82 98 05/13/23 17:00 71 156/83 98 05/13/23 16:00 71 167/85 97 05/13/23 15:27 73 18 147/81 96 05/13/23 15:00 73 160/87 05/13/23 14:00 73 148/84 95 05/13/23 13:52 98.7 F 72 18 148/84 96 05/13/23 13:00 73 164/85 95 05/13/23 12:00 78 189/92 95 Intake and Output 05/13/23 05/14/23 05/14/23 22:59 06:59 14:59 Other: Weight 69.2 kg Results - Lab Results Most recent lab results Calcium 8.7 mg/dL (8.4-10.2) 05/14/23 02:16 05/14/23 08:09 05/14/23 02:16 Assessment and Plan Plan: Assessment: 1. Acute kidney injury secondary to ATN secondary to cardiorenal syndrome. Started on hemodialysis 05/07/2023 due to severe volume overload and low urine output. Has permacath. 2. Acute on chronic systolic CHF with ejection fraction of 40-45% with severe pulmonary hypertension. 3. Anemia. Rule out iron deficiency. 4. Volume overload. 5. Diabetes mellitus. Plan: Hemodialysis today. Maintain IV Lasix. Follow-up cultures. Check iron studies. Monitor for renal recovery outpatient. Decrease dose of gabapentin. Stop [id number]. Thank you for the consultation. I will continue to follow the patient with you during her hospital stay.
--- NOTE | 2023-05-14 13:01 | P.CNPUL ---
History of Present Illness Consult date: 05/14/23 Reason for consult: dyspnea History of present illness: Patient is a 57-year-old white female was being seen for shortness of breath. The patient is known to have multiple medical problems and comorbidities. The patient's is quite debilitated despite her young age. She had a recent prolonged hospitalization for CHF and right foot wound, which was treated inpatient with antibiotics. Subsequently, developing acute renal failure requiring hemodialysis catheter placement on May 10. She was discharged on May 11. Other past medical history includes CHF, diabetes mellitus, hypertension, hyperlipidemia COPD, and tobacco dependence. Patient presented the hospital yesterday morning complaining of progressively worsening shortness of breath since her recent hospital discharge 2 days prior. She does have right IJ hemodialysis catheter, and was scheduled to start a HD schedule today. She still produces urine. She is currently lying in bed, on 3 L/m nasal cannula, in no acute distress. She denies any chest pain, heart palpitations, syncope, lower extremity swelling. Admits chronic cough, mostly nonproductive, with occasional clear sputum production. Denies any fevers at home, however, was noted to have mild fever of 100.1F on arrival. Chest x-ray showed a stable heart with interstitial changes. No focal infiltrates. Follow-up Chest CT demonstrates borderline cardiomegaly and small bilateral effusions. Partially calcified mediastinal and hilar lymph nodes. There is scattered lymphadenopathy throughout which could be secondary to third spacing of fluid. There is also severe coronary atherosclerosis. Upon further questioning, the patient has no history of pulmonary infection, no previous history of histoplasma infection. No previous history of sarcoidosis. No previous history of radiation therapy or chest malignancy. No cell lymphoma. CBC on arrival: WBC count 9.1, hemoglobin 10.5, hematocrit 34.7, platelets 190. BMP arrival: Sodium 137, potassium 4.6, chloride 100, serum bicarbonate 25, BUN 23, creatinine 1.64, glucose 436. Lactic acid level I. Urinalysis not concerning for UTI. Negative for influenza, RSV, COVID-19. Vital signs are stable. This morning, the patient is undergoing hemodialysis with a goal of ultrafiltration of around 2.4 L. She is, comfortable. He is already on 4 L of oxygen by nasal cannula. She is afebrile for now. Cultures are been sent and results are still pending for now. The patient on a combination of Rocephin and Zithromax. Review of Systems Constitutional: Reports as per HPI, Reports fatigue, Reports weakness Eyes: denies as per HPI, denies blurred vision, denies bulging eye, denies decreased vision, denies diplopia, denies discharge, denies dry eye, denies irritation, denies itching, denies pain, denies photophobia, denies loss of peripheral vision, denies loss of vision, denies tunnel vision/blind spots Ears: deny: decreased hearing, ear discharge, earache, tinnitus Ears, nose, mouth and throat: Reports as per HPI Breasts: absent: as per HPI, change in shape, gynecomastia, masses, nipple discharge, pain, skin changes, swelling Cardiovascular: Reports decreased exercise tolerance, Reports dyspnea on exertion Respiratory: Reports dyspnea Gastrointestinal: Reports as per HPI Genitourinary: Reports as per HPI Menstruation: Reports as per HPI Musculoskeletal: Reports as per HPI, Reports gait dysfunction Musculoskeletal: absent: ankle pain, ankle stiffness, ankle swelling Integumentary: Reports wounds Neurological: Reports as per HPI Psychiatric: Reports as per HPI Endocrine: Reports as per HPI, Reports fatigue Hematologic/Lymphatic: Reports as per HPI Allergic/Immunologic: Reports as per HPI Past Medical History Past Medical History: Diabetes Mellitus, Hyperlipidemia, Hypertension, Renal Disease Additional Past Medical History / Comment(s): restless leg, neurothopy, Guillain-[place], right heel diabetic ulcer History of Any Multi-Drug Resistant Organisms: None Reported Past Surgical History: Orthopedic Surgery, Tonsillectomy Additional Past Surgical History / Comment(s): "plate in left leg to straighten leg as a child" - plate removed, right total hip replacement due to a fracture from a fall Past Anesthesia/Blood Transfusion Reactions: No Reported Reaction Past Psychological History: No Psychological Hx Reported Smoking Status: Former smoker Past Alcohol Use History: None Reported Past Drug Use History: None Reported Medications and Allergies Home Medications Medication Instructions Recorded Confirmed Type Atorvastatin [Lipitor] 40 mg PO DAILY 04/17/23 05/13/23 History Dapagliflozin Propanediol [Farxiga] 5 mg PO DAILY 04/17/23 05/13/23 History Ezetimibe [Zetia] 10 mg PO DAILY 04/17/23 05/13/23 History Multivitamins, Thera [Multivitamin 1 tab PO DAILY 04/17/23 05/13/23 History (formulary)] Sertraline [Zoloft] 50 mg PO DAILY 04/17/23 05/13/23 History rOPINIRole HCL [Requip] 1 mg PO HS 04/17/23 05/13/23 History Furosemide [Lasix] 60 mg PO BID@0900,1600 #90 tab 05/11/23 05/13/23 Rx Gabapentin [Neurontin] 300 mg PO TID #30 cap 05/11/23 05/13/23 Rx Insulin Detemir [Levemir Flexpen] 15 units SQ DAILY #7 each 05/11/23 05/13/23 Rx Potassium Chloride ER [K-Dur 20] 20 meq PO DAILY #60 tab 05/11/23 05/13/23 Rx carvediloL [Coreg*] 25 mg PO BID@0900,1700 #90 tab 05/11/23 05/13/23 Rx hydrALAZINE HCL [Apresoline] 25 mg PO TID #90 tab 05/11/23 05/13/23 Rx metOLazone [Zaroxolyn] 5 mg PO DAILY #90 tab 05/11/23 05/13/23 Rx Allergies Allergy/AdvReac Type Severity Reaction Status Date / Time No Known Allergies Allergy Verified 05/13/23 12:46 Physical Exam Vitals: Vital Signs Temp Pulse Pulse Resp BP BP Pulse Ox 05/14/23 11:47 97.7 F 70 15 125/73 97 05/14/23 08:40 98.1 F 76 20 117/60 95 05/14/23 04:01 101.2 F H 88 18 125/71 96 05/14/23 00:30 97.7 F 89 18 138/72 96 05/13/23 18:00 68 153/82 98 05/13/23 17:00 71 156/83 98 05/13/23 16:00 71 167/85 97 05/13/23 15:27 73 18 147/81 96 05/13/23 15:00 73 160/87 05/13/23 14:00 73 148/84 95 05/13/23 13:52 98.7 F 72 18 148/84 96 05/13/23 13:00 73 164/85 95 Intake and Output 05/13/23 05/14/23 05/14/23 22:59 06:59 14:59 Other: # Bowel Movements 1 Weight 69.2 kg NGENERAL EXAM: Alert, 57-year-old white female, comfortable in no apparent distress. The patient is currently on 3 L of oxygen by nasal cannula with a pulse ox 97% HEAD: Normocephalic and atraumatic EYES: Normal reaction of pupils, equal size. NOSE: Clear with pink turbinates. THROAT: No erythema or exudates. NECK: No masses, no JVD. CHEST: No chest wall deformity. LUNGS: Equal air entry with faint end expiratory wheezes. No crackles, rhonchi, or focal dullness. No conversational dyspnea or accessory muscle use. The breath sounds are quite diminished in the lung bases bilaterally. CVS: S1 and S2 normal with grade III systolic murmur, regular rhythm. No other extra heart sounds ABDOMEN: No hepatosplenomegaly, active bowel sounds, no guarding or rigidity. SPINE: No scoliosis or deformity SKIN: No rashes. CENTRAL NERVOUS SYSTEM: No focal deficits, tone is normal in all 4 extremities. EXTREMITIES: There is no peripheral edema, clubbing, or cyanosis. Peripheral pulses are diminished Right dorsal foot wound/laceration, healing no evidence of cellulitis. Right heel pressure ulcer around 2 inches wide and the base is clear and there is no active drainage at this point in time. Pulses in lower extremities are quite diminished. Results - Laboratory Findings CBC and BMP: 05/14/23 08:09 05/14/23 02:16 PT/INR, D-dimer PT 11.5 sec (10.0-12.5) 05/13/23 11:11 INR 1.1 (<1.2) 05/13/23 11:11 Abnormal lab findings: Abnormal Labs 05/13/23 05/13/23 05/13/23 10:49 11:11 11:11 RBC Hgb 10.5 L Hct MCHC 30.3 L RDW 16.2 H Plt Count Neutrophils # 7.9 H Lymphocytes # 0.5 L Sodium BUN 23 H Creatinine 1.64 H Glucose 436 H POC Glucose (mg/dL) 420 H Hemoglobin A1c Alkaline Phosphatase 199 H C-Reactive Protein Albumin Procalcitonin Urine Appearance Urine Protein Urine Glucose (UA) Urine Blood Urine RBC Urine Bacteria Hyaline Casts Urine Mucus 05/13/23 05/13/23 05/13/23 11:11 14:59 15:15 RBC Hgb Hct MCHC RDW Plt Count Neutrophils # Lymphocytes # Sodium BUN Creatinine Glucose POC Glucose (mg/dL) 365 H Hemoglobin A1c 10.4 H Alkaline Phosphatase C-Reactive Protein Albumin Procalcitonin Urine Appearance Cloudy H Urine Protein 2+ H Urine Glucose (UA) 4+ H Urine Blood Small H Urine RBC 105 H Urine Bacteria Few H Hyaline Casts 3 H Urine Mucus Occasional H 05/13/23 05/14/23 05/14/23 21:42 02:16 03:30 RBC Hgb Hct MCHC RDW Plt Count Neutrophils # Lymphocytes # Sodium 134 L BUN 26 H Creatinine 1.70 H Glucose 174 H POC Glucose (mg/dL) 201 H Hemoglobin A1c Alkaline Phosphatase 171 H C-Reactive Protein 4.4 H Albumin 3.3 L Procalcitonin 0.10 H Urine Appearance Urine Protein Urine Glucose (UA) Urine Blood Urine RBC Urine Bacteria Hyaline Casts Urine Mucus 05/14/23 05/14/23 05/14/23 06:04 08:09 11:52 RBC 3.29 L Hgb 8.7 L D Hct 28.2 L MCHC 30.9 L RDW 16.6 H Plt Count 143 L Neutrophils # Lymphocytes # 0.4 L Sodium BUN Creatinine Glucose POC Glucose (mg/dL) 190 H 191 H Hemoglobin A1c Alkaline Phosphatase C-Reactive Protein Albumin Procalcitonin Urine Appearance Urine Protein Urine Glucose (UA) Urine Blood Urine RBC Urine Bacteria Hyaline Casts Urine Mucus - Diagnostic Findings Chest x-ray: image reviewed CT scan - chest: image reviewed Assessment and Plan Plan: Acute hypoxic respiratory failure, likely on the basis of CHF/fluid overload and the patient has developed bilateral pleural effusions, currently on 4 L of O2 nasal cannula CHF with mild impairment of LV function with an ejection fraction of 40-45% and moderate MR and severe pulmonary hypertension based on echocardiogram Mediastinal lymphadenopathy with significant mediastinal lymph node calcification. Rule out an old sarcoidosis. Rule out previous adenomatous infection of the lung including Histoplasma. Lymphoma is felt to be less likely. No previous images for comparison. The chronicity of this problem is not well-established. Acute febrile illness, under investigation for now. The patient is currently on Rocephin. Cultures are still pending. Pneumonia is doubtful. End-stage renal disease currently on hemodialysis. The patient is undergoing chemo last and regular basis. The urine output is diminished, the patient continues to have some edema lower extremities bilaterally. The patient is scheduled to undergo hemodialysis 3 times a week Tuesdays and Saturdays. She was started on hemodialysis in 05/07/2023 and she has some volume overload and low urine output. Chronic right heel wound, no evidence of cellulitis , this is a diabetic wound that has no signs of any active infection. Chronic anemia, anemia of chronic disease Diabetes mellitus type 2 Hypertension Hyperlipidemia Chronic tobacco dependence Plan The fever workup will be completed and cultures were sent Continue IV Rocephin Continue hemodialysis with ultrafiltration Monitor respiratory status and she should be able to gradually wean down FiO2 as tolerated currently on 4 L The mediastinal lymphadenopathy which is partially calcified is probably chronic. We can contemplate and endobronchial ultrasound the later stage to establish a tissue diagnosis. Suspect all granulomatous infection versus sarcoidosis. Malignancy is felt to be less likely. Resume all medications Wound care We'll continue to follow
--- NOTE | 2023-05-14 13:57 | P.CRDCN ---
History of Present Illness Consult date: 05/14/23 Reason for Consult (text): Pulmonary edema History of present illness: History of present illness: This is a 57-year-old female with past medical history of diabetes, hypertension, hyperlipidemia, chronic systolic and diastolic heart failure, cardiomyopathy undetermined type, pulmonary hypertension, COPD, tobacco use and dependence, chronic kidney disease. We have been asked to evaluate the patient for pulmonary edema. Patient had a recent hospitalization March 2001. During that hospitalization, patient was started on hemo dialysis. Patient presented to the hospital with the vertebral 4-1.2. She states she has not been feeling well for the past 1-1/2 days with shortness of breath and chest heaviness. She denies any previous cardiac history and no stents done on her. She complains of a cough. She is not requiring home oxygen but this morning had a pulse ox of 86% on room air and was started on oxygen. Patient has been started on IV antibiotics. Dialysis as scheduled on Saturday. She states her last dialysis was on Saturday. EKG sinus rhythm with no acute changes. Chest x-ray: Findings of CHF. CT of the chest revealed small bilateral pleural effusions with anasarca and cardiomegaly. Correlate for congestive heart failure. Right central venous catheter with tip in the superior vena cava. Lymphadenopathy scattered throughout. Severe coronary artery atherosclerosis. WBC 4, hemoglobin 8.7, platelet count 143. Sodium 134, potassium 4.8, BUN 26 and creatinine 1.7. Blood sugar 174. Alkaline phosphatase 171 and otherwise liver function tests are normal. C-reactive protein 4.4. ProBNP 26,300. Troponin negative 1. Influenza A, influenza B, RNC, Covid 19 not detected Home cardiac medications: Atorvastatin 40 mg daily, Coreg 25 mg twice daily, Farxiga 5 milligrams daily, Zetia 10 mg daily, Lasix 60 mg twice daily, hydralazine 25 mg 3 times daily, metolazone 5 mg daily. Echocardiogram performed on 04/17/2023 revealed moderately impaired left ventricular systolic function with global hypokinesis, EF 40-45%. Moderate mitral and tricuspid regurgitation. Severe pulmonary hypertension. Review Of Systems: At the time of my exam: CONSTITUTIONAL: Denies fever or chills. CARDIOVASCULAR: + chest pain, + shortness of breath, no orthopnea, PND or palpitations. RESPIRATORY: + cough. GASTROINTESTINAL: Denies abdominal pain, diarrhea, constipation, nausea or vomiting. MUSCULOSKELETAL: Denies myalgias. NEUROLOGIC: Denies numbness, tingling or weakness. ENDOCRINE: Denies fatigue, weight change, polydipsia or polyurina. GENITOURINARY: Denies burning, hematuria or urgency with micturation. HEMATOLOGIC: Denies history of anemia or bleeding. Physical examination: Gen: This is a 57-year-old female resting in bed and appears to be ill.] VS: reviewed HEENT: Head is atraumatic, normocephalic. Pupils equal, round. Sclerae is anicteric. LUNGS: Diminished breath sounds. No intercostal retractions. HEART: Regular rate and rhythm. No murmur. ABDOMEN: Soft No tenderness. EXTREMITIES: No pedal edema. No calf tenderness. NEUROLOGICAL: Patient is awake, alert and oriented x3. Assessment: Acute febrile illness Acute hypoxic respiratory failure Acute on chronic systolic heart failure and diastolic heart failure Bilateral pleural effusions Cardiomyopathy Hypertension Hyperlipidemia Pulmonary hypertension COPD End-stage renal disease on hemodialysis Chronic anemia Thrombocytopenia Diabetes mellitus type 2 Tobacco use and dependence Severe coronary artery atherosclerosis on CT imaging Heel cellulitis Plan: Continue patient's home cardiac medications Increase IV Lasix to 80 mg every 12 hours Discontinue metolazone Start patient on Imdur 15 mg daily Under eye no, daily weights, electrolytes and renal function No need to repeat echocardiogram Febrile illness workup per ID Further recommendations to follow based upon clinical course Thank you kindly for this consultation. Nurse practitioner note has been reviewed, I agree with documented findings and plan of care. Patient was seen and examined. Past Medical History Past Medical History: Diabetes Mellitus, Hyperlipidemia, Hypertension Additional Past Medical History / Comment(s): restless leg, neurothopy, Guillain-[place] History of Any Multi-Drug Resistant Organisms: None Reported Past Surgical History: Orthopedic Surgery, Tonsillectomy Additional Past Surgical History / Comment(s): "plate in left leg to straighten leg as a child" - plate removed, right total hip replacement due to a fracture from a fall Past Anesthesia/Blood Transfusion Reactions: No Reported Reaction Past Psychological History: No Psychological Hx Reported Smoking Status: Former smoker Past Alcohol Use History: None Reported Past Drug Use History: None Reported Medications and Allergies Home Medications Medication Instructions Recorded Confirmed Type Atorvastatin [Lipitor] 40 mg PO DAILY 04/17/23 05/13/23 History Dapagliflozin Propanediol [Farxiga] 5 mg PO DAILY 04/17/23 05/13/23 History Ezetimibe [Zetia] 10 mg PO DAILY 04/17/23 05/13/23 History Multivitamins, Thera [Multivitamin 1 tab PO DAILY 04/17/23 05/13/23 History (formulary)] Sertraline [Zoloft] 50 mg PO DAILY 04/17/23 05/13/23 History rOPINIRole HCL [Requip] 1 mg PO HS 04/17/23 05/13/23 History Furosemide [Lasix] 60 mg PO BID@0900,1600 #90 tab 05/11/23 05/13/23 Rx Gabapentin [Neurontin] 300 mg PO TID #30 cap 05/11/23 05/13/23 Rx Insulin Detemir [Levemir Flexpen] 15 units SQ DAILY #7 each 05/11/23 05/13/23 Rx Potassium Chloride ER [K-Dur 20] 20 meq PO DAILY #60 tab 05/11/23 05/13/23 Rx carvediloL [Coreg*] 25 mg PO BID@0900,1700 #90 tab 05/11/23 05/13/23 Rx hydrALAZINE HCL [Apresoline] 25 mg PO TID #90 tab 05/11/23 05/13/23 Rx metOLazone [Zaroxolyn] 5 mg PO DAILY #90 tab 05/11/23 05/13/23 Rx Allergies Allergy/AdvReac Type Severity Reaction Status Date / Time No Known Allergies Allergy Verified 05/13/23 12:46 Physical Exam Vitals: Vital Signs Temp Pulse Pulse Resp BP BP Pulse Ox 05/14/23 04:01 101.2 F H 88 18 125/71 96 05/14/23 00:30 97.7 F 89 18 138/72 96 05/13/23 18:00 68 153/82 98 05/13/23 17:00 71 156/83 98 05/13/23 16:00 71 167/85 97 05/13/23 15:27 73 18 147/81 96 05/13/23 15:00 73 160/87 05/13/23 14:00 73 148/84 95 05/13/23 13:52 98.7 F 72 18 148/84 96 05/13/23 13:00 73 164/85 95 05/13/23 12:00 78 189/92 95 05/13/23 11:00 170/108 05/13/23 10:53 170/108 93 L 05/13/23 10:42 100.1 F H 88 18 172/92 92 L Intake and Output 05/13/23 05/14/23 05/14/23 22:59 06:59 14:59 Other: Weight 69.2 kg Results 05/14/23 08:09 05/14/23 02:16 Cardiac Enzymes 05/13/23 05/14/23 05/14/23 Range/Units 11:11 02:16 02:16 AST 19 19 (14-36) U/L Troponin I 0.016 (0.000-0.034) ng/mL Coagulation 05/13/23 Range/Units 11:11 PT 11.5 (10.0-12.5) sec APTT 24.9 (22.0-30.0) sec CBC 05/13/23 Range/Units 11:11 WBC 9.1 (3.8-10.6) k/uL RBC 4.02 (3.80-5.40) m/uL Hgb 10.5 L (11.4-16.0) gm/dL Hct 34.7 (34.0-46.0) % Plt Count 190 (150-450) k/uL Comprehensive Metabolic Panel 05/13/23 05/14/23 Range/Units 11:11 02:16 Sodium 137 134 L (137-145) mmol/L Potassium 4.6 4.8 (3.5-5.1) mmol/L Chloride 102 103 (98-107) mmol/L Carbon Dioxide 25 26 (22-30) mmol/L BUN 23 H 26 H (7-17) mg/dL Creatinine 1.64 H 1.70 H (0.52-1.04) mg/dL Glucose 436 H 174 H (74-99) mg/dL Calcium 9.1 8.7 (8.4-10.2) mg/dL AST 19 19 (14-36) U/L ALT 19 16 (4-34) U/L Alkaline Phosphatase 199 H 171 H (38-126) U/L Total Protein 8.1 6.9 (6.3-8.2) g/dL Albumin 3.9 3.3 L (3.5-5.0) g/dL Current Medications Generic Name Dose Route Start Last Admin Trade Name Freq PRN Reason Stop Dose Admin Acetaminophen 500 mg 05/14/23 06:00 05/14/23 04:03 Acetaminophen Tab 500 Mg Tab PO 500 mg Q6HR PRN Administration Fever and/ or Pain Albuterol/Ipratropium 3 ml 05/14/23 08:00 Ipratropium-Albuterol 3 Ml Neb INHALATION RT-QID [facility] Atorvastatin Calcium 40 mg 05/14/23 09:00 Atorvastatin 40 Mg Tab PO DAILY [facility] Azithromycin 250 mg 05/14/23 12:00 Azithromycin 250 Mg Tab PO 05/17/23 12:01 DAILY@1200 [facility] Protocol Carvedilol 25 mg 05/14/23 09:00 Carvedilol 12.5 Mg Tab PO BID@0900,1700 [facility] Dapagliflozin 5 mg 05/14/23 09:00 Dapagliflozin Propanediol 5 Mg Tablet PO DAILY [facility] Ezetimibe 10 mg 05/14/23 09:00 Ezetimibe 10 Mg Tab PO DAILY [facility] Furosemide 40 mg 05/13/23 14:30 05/14/23 03:26 Furosemide 10 Mg/Ml 4 Ml Vial IV 40 mg Q12H [facility] Administration Gabapentin 300 mg 05/13/23 22:15 05/13/23 23:14 Gabapentin 300 Mg Cap PO 300 mg TID [facility] Administration Hydralazine HCl 25 mg 05/13/23 22:00 05/13/23 22:21 Hydralazine Hcl 25 Mg Tab PO 25 mg TID [facility] Administration Ceftriaxone Sodium 1 gm/ 50 mls @ 100 mls/hr 05/13/23 22:00 05/13/23 23:14 Sodium Chloride IVPB 100 mls/hr Q24HR [facility] Administration Protocol Insulin Detemir 15 unit 05/14/23 07:00 05/14/23 06:41 Insulin Detemir (Levemir) 100 Unit/Ml Syr SQ 15 unit DAILY@0700 [facility] Administration Metolazone 5 mg 05/14/23 09:00 Metolazone 5 Mg Tab PO DAILY [facility] Multivitamins 1 each 05/14/23 09:00 Multivitamins, Thera 1 Each Tab PO DAILY [facility] Nitroglycerin 0.5 inch 05/13/23 18:00 05/14/23 05:52 Nitroglycerin Oint 1 Inch/Gm Packet TOPICAL 05/14/23 18:01 Not Given Q6HR [facility] Potassium Chloride 20 meq 05/14/23 09:00 Potassium Chloride Er 20 Meq Tab.Er PO DAILY [facility] Ropinirole HCl 1 mg 05/13/23 21:00 05/13/23 22:21 Ropinirole Hcl 1 Mg Tab PO 1 mg HS [facility] Administration Sertraline HCl 50 mg 05/14/23 09:00 Sertraline 50 Mg Tab PO DAILY [facility] Intake and Output 05/13/23 05/14/23 05/14/23 22:59 06:59 14:59 Other: Weight 69.2 kg 05/13/23 11:11 05/14/23 02:16
[2023-05-14] MEDS: ISOSORBIDE MONONITRATE ER 15 MG TAB PO SCH (15:15)
[2023-05-14] MEDS: AZITHROMYCIN 250 MG TAB PO SCH (15:15)
[2023-05-14] MEDS: GABAPENTIN 100 MG CAP PO SCH (15:17)
--- NOTE | 2023-05-14 15:51 | P.PN ---
Subjective Progress Note Date: 05/14/23 Principal diagnosis: Reason for follow-up is fever Patient is a 57-year-old female with a past medical history significant for diabetes mellitus, hypertension right heel diabetic foot wound and cellulitis with recent admission to the hospital local culture positive for Pseudomonas Enterococcus and the patient received 3-week course of IV Zosyn during the hospital stay the patient also developed renal failure requiring dialysis, presenting back to the hospital with worsening shortness of breath and also have a fever. Chest x-ray was suggestive of CHF, CT of the chest small bilateral effusion and cardiomegaly lymphadenopathy scattered throughout. On today's evaluation that is 05/14/2023, the patient did spike a fever of 101.2 at 4 AM the patient is afebrile since then the patient is breathing slightly comfortably on 3 L nasal cannula oxygen the patient denies having any chest pain she did have a cough not bring up any sputum no vomiting no abdominal pain no diarrhea or pain to the right heel wound. Patient did have white count of 4.0, creatinine is 1.70, NT proBNP was 26 300 CRP 4.4 Pro-Joseluis is pending Objective - Vital Signs Vital signs: Vital Signs Temp 97.7 F 05/14/23 11:47 Pulse 70 05/14/23 11:47 Resp 15 05/14/23 11:47 BP 125/73 05/14/23 11:47 Pulse Ox 97 05/14/23 11:47 FiO2 Intake & Output 05/13/23 05/14/23 05/14/23 18:59 06:59 18:59 Intake Total 120 Balance 120 Weight 66.224 kg 69.2 kg Intake: Oral 120 Other: # Bowel Movements 1 - Exam GENERAL DESCRIPTION: Middle-aged female lying in bed in no distress RESPIRATORY SYSTEM: Unlabored breathing , decreased breath sounds at bases HEART: S1 S2 regular rate and rhythm , ABDOMEN: Soft , no tenderness EXTREMITIES: Right heel wound is currently dressed - Labs CBC & Chem 7: 05/14/23 08:09 05/14/23 02:16 Labs: Abnormal Lab Results - Last 24 Hours (Table) 05/13/23 05/13/23 05/13/23 Range/Units 11:11 14:59 15:15 RBC (3.80-5.40) m/uL Hgb (11.4-16.0) gm/dL Hct (34.0-46.0) % MCHC (31.0-37.0) g/dL RDW (11.5-15.5) % Plt Count (150-450) k/uL Lymphocytes # (1.0-4.8) k/uL Sodium (137-145) mmol/L BUN (7-17) mg/dL Creatinine (0.52-1.04) mg/dL Glucose (74-99) mg/dL POC Glucose (mg/dL) 365 H (70-110) mg/dL Hemoglobin A1c 10.4 H (<=6.0) % Alkaline Phosphatase (38-126) U/L C-Reactive Protein (<1.0) mg/dL Albumin (3.5-5.0) g/dL Procalcitonin (0.02-0.09) ng/mL Urine Appearance Cloudy H (Clear) Urine Protein 2+ H (Negative) Urine Glucose (UA) 4+ H (Negative) Urine Blood Small H (Negative) Urine RBC 105 H (0-5) /hpf Urine Bacteria Few H (None) /hpf Hyaline Casts 3 H (0-2) /lpf Urine Mucus Occasional H (None) /hpf 05/13/23 05/14/23 05/14/23 Range/Units 21:42 02:16 03:30 RBC (3.80-5.40) m/uL Hgb (11.4-16.0) gm/dL Hct (34.0-46.0) % MCHC (31.0-37.0) g/dL RDW (11.5-15.5) % Plt Count (150-450) k/uL Lymphocytes # (1.0-4.8) k/uL Sodium 134 L (137-145) mmol/L BUN 26 H (7-17) mg/dL Creatinine 1.70 H (0.52-1.04) mg/dL Glucose 174 H (74-99) mg/dL POC Glucose (mg/dL) 201 H (70-110) mg/dL Hemoglobin A1c (<=6.0) % Alkaline Phosphatase 171 H (38-126) U/L C-Reactive Protein 4.4 H (<1.0) mg/dL Albumin 3.3 L (3.5-5.0) g/dL Procalcitonin 0.10 H (0.02-0.09) ng/mL Urine Appearance (Clear) Urine Protein (Negative) Urine Glucose (UA) (Negative) Urine Blood (Negative) Urine RBC (0-5) /hpf Urine Bacteria (None) /hpf Hyaline Casts (0-2) /lpf Urine Mucus (None) /hpf 05/14/23 05/14/23 05/14/23 Range/Units 06:04 08:09 11:52 RBC 3.29 L (3.80-5.40) m/uL Hgb 8.7 L D (11.4-16.0) gm/dL Hct 28.2 L (34.0-46.0) % MCHC 30.9 L (31.0-37.0) g/dL RDW 16.6 H (11.5-15.5) % Plt Count 143 L (150-450) k/uL Lymphocytes # 0.4 L (1.0-4.8) k/uL Sodium (137-145) mmol/L BUN (7-17) mg/dL Creatinine (0.52-1.04) mg/dL Glucose (74-99) mg/dL POC Glucose (mg/dL) 190 H 191 H (70-110) mg/dL Hemoglobin A1c (<=6.0) % Alkaline Phosphatase (38-126) U/L C-Reactive Protein (<1.0) mg/dL Albumin (3.5-5.0) g/dL Procalcitonin (0.02-0.09) ng/mL Urine Appearance (Clear) Urine Protein (Negative) Urine Glucose (UA) (Negative) Urine Blood (Negative) Urine RBC (0-5) /hpf Urine Bacteria (None) /hpf Hyaline Casts (0-2) /lpf Urine Mucus (None) /hpf Assessment and Plan (1) Pressure ulcer of right heel, stage 3 Current Visit: No Status: Acute Code(s): L89.613 - PRESSURE ULCER OF RIGHT HEEL, STAGE 3 SNOMED Code(s): 30675151673086 (2) Fever Current Visit: Yes Status: Acute Code(s): R50.9 - FEVER, UNSPECIFIED SNOMED Code(s): 729710359 Plan: 1-patient presented to hospital with fever also complaining of increasing shortness of breath and cough however the chest x-ray is mostly suggestive of CHF rather than pneumonia 2-patient did have right heel wound which seem to be healing well with no evidence of any cellulitis 3-workup and cultures are currently pending 4-patient to continue with the Rocephin and Zithromax while awaiting further wor kup to be completed 5-local wound care to the right heel with Aquacel silver dressing change every 4 8 hour Dictation was produced using [employer] dictation software. please excuse any grammatical, word or spelling errors. Time with Patient: Less than 30
[2023-05-14 16:35] LABS: % Iron Saturation 3.64 (12.00-45.00)
[2023-05-14 16:55] LABS: Glucose,Whole Blood 120 mg/dL (70-110)
--- NOTE | 2023-05-14 17:17 | CA ---
Transthoracic Echo Report Name: Chelle Lin Age: 57 Gender: F : 1965 Exam Date: 05/14/2023 09:18 Exam Location: [place] [facility] Ht (in): 63 Wt (lb): 146 Ordering Physician: Darnell Gaming MD Attending/Referring Phys: Tube Tester Samantha Ricks [facility] Procedure CPT: Indications: chf Cardiac Hx: Technical Quality: Fair Contrast 1: Total Dose (mL): Contrast 2: Total Dose (mL): MEASUREMENTS (Male / Female) Normal Values 2D ECHO LV Diastolic Diameter PLAX 4.9 cm 4.2 - 5.9 / 3.9 - 5.3 cm LV Systolic Diameter PLAX 3.8 cm IVS Diastolic Thickness 1.0 cm 0.6 - 1.0 / 0.6 - 0.9 cm LVPW Diastolic Thickness 0.9 cm 0.6 - 1.0 / 0.6 - 0.9 cm LV Relative Wall Thickness 0.4 LV Diastolic Volume MOD BP 79.6 cm??? 67 - 155 / 56 - 104 cm??? LV Systolic Volume MOD BP 50.1 cm??? 22 - 58 / 19 - 49 cm??? LV Ejection Fraction MOD BP 37.1 % >= 55 % LV Cardiac Index MOD BP 1330.5 cm???/min???m??? LV Diastolic Volume MOD 4C 78.4 cm??? LV Systolic Volume MOD 4C 50.0 cm??? LV Ejection Fraction MOD 4C 36.3 % LV Cardiac Index MOD 4C 1281.7 cm???/min???m??? LV Diastolic Length 4C 8.0 cm LV Systolic Length 4C 6.9 cm LV Diastolic Volume MOD 2C 80.5 cm??? LV Systolic Volume MOD 2C 47.5 cm??? LV Ejection Fraction MOD 2C 41.1 % LV Cardiac Index MOD 2C 1491.6 cm???/min???m??? LV Diastolic Length 2C 7.9 cm LV Systolic Length 2C 7.4 cm DOPPLER Mitral E Point Velocity 83.9 cm/s Mitral A Point Velocity 79.1 cm/s Mitral E to A Ratio 1.1 MV Deceleration Time 158.5 ms LV E' Lateral Velocity 8.3 cm/s Mitral E to LV E' Lateral Ratio 10.1 LV E' Septal Velocity 4.9 cm/s Mitral E to LV E' Septal Ratio 17.0 TR Peak Velocity 351.8 cm/s TR Peak Gradient 49.5 mmHg Right Atrial Pressure 15.0 mmHg Pulmonary Artery Systolic Pressu 64.5 mmHg Right Ventricular Systolic Press 64.5 mmHg FINDINGS Left Ventricle Mildly increased left ventricular systolic volume. Moderately decreased left ventricular ejection fraction. Left ventricular wall thickness at upper limits of normal. Left ventricular cavity size at the upper limits of normal. Left ventricular ejection fraction is estimated at 35-40%. Right Ventricle Severe pulmonary hypertension. Right Atrium Left Atrium Mitral Valve Mitral valve thickened. Mitral annular calcification. Moderate mitral regurgitation. Aortic Valve Tricuspid Valve Structurally normal tricuspid valve. Moderate tricuspid regurgitation. Pulmonic Valve Pericardium No pericardial effusion. Aorta CONCLUSIONS Limited for CHF Reduced LV systolic function ejection fraction 35% Severe pulmonary hypertension with a dilated IVC Enlarged right ventricle Previewed by: Dr. Kemal Givens MD (Electronically Signed) Final Date: 14 May 2023 17:16
[2023-05-14 18:27] LABS: Glucose,Whole Blood 167 mg/dL (70-110)
[2023-05-14 19:58] LABS: Glucose,Whole Blood 96 mg/dL (70-110)
[2023-05-15 05:59] LABS: Glucose,Whole Blood 100 mg/dL (70-110)
[2023-05-15] MEDS: BUDESONIDE 0.5 MG/2 ML NEBU INHALATION SCH (08:42)
[2023-05-15 09:45] LABS: African American GFR (CKD) 41 (>60 ml/min/1.73 sqM); Anion Gap 5 mmol/L; Blood Urea Nitrogen 24 mg/dL (7-17); Calcium 8.4 mg/dL (8.4-10.2); Carbon Dioxide 30 mmol/L (22-30); Chloride 101 mmol/L (98-107); Glucose 191 mg/dL (74-99); Non-African American GFR(CKD) 36 (>60 ml/min/1.73 sqM); Phosphorus 4.7 mg/dL (2.5-4.5); Potassium 3.7 mmol/L (3.5-5.1); Sodium 136 mmol/L (137-145)
--- NOTE | 2023-05-15 11:18 | P.PN ---
Subjective Patient is seen in follow-up for acute kidney injury, hemodialysis dependent. Tolerated 2 L ultrafiltration yesterday. Currently on 4 L nasal cannula. Hemodynamically stable. Vital signs are stable. General: No acute distress. HEENT: Head exam is unremarkable. On nasal cannula. LUNGS: No audible rhonchi or wheezes. HEART: Rate and Rhythm are regular. ABDOMEN: Nontender. EXTREMITITES: Trace edema. Objective - Vital Signs Vital signs: Vital Signs Temp 97.8 F 05/15/23 04:00 Pulse 74 05/15/23 09:03 Resp 18 05/15/23 04:00 BP 138/74 05/15/23 04:00 Pulse Ox 98 05/15/23 08:44 FiO2 Intake & Output 05/14/23 05/15/23 05/15/23 18:59 06:59 18:59 Intake Total 520 222 Output Total 2400 Balance -1880 222 Weight 69.2 kg 63.8 kg Intake: Oral 120 222 Hemodialysis 400 Output: Hemodialysis 2400 Other: # Voids 1 # Bowel Movements 1 1 1 - Labs CBC & Chem 7: 05/14/23 08:09 05/15/23 08:34 Labs: Abnormal Lab Results - Last 24 Hours (Table) 05/14/23 05/14/23 05/14/23 Range/Units 02:16 11:52 16:54 Sodium (137-145) mmol/L BUN (7-17) mg/dL Creatinine (0.52-1.04) mg/dL Glucose (74-99) mg/dL POC Glucose (mg/dL) 191 H 120 H (70-110) mg/dL Plasma Lactic Acid [place] (0.7-2.0) mmol/L Phosphorus (2.5-4.5) mg/dL Iron 11 L (50-170) UG/DL % Saturation 3.64 L (12.00-45.00) 05/14/23 05/14/23 05/15/23 Range/Units 18:26 21:48 08:34 Sodium 136 L (137-145) mmol/L BUN 24 H (7-17) mg/dL Creatinine 1.59 H (0.52-1.04) mg/dL Glucose 191 H (74-99) mg/dL POC Glucose (mg/dL) 167 H (70-110) mg/dL Plasma Lactic Acid [place] 0.6 L (0.7-2.0) mmol/L Phosphorus 4.7 H (2.5-4.5) mg/dL Iron (50-170) UG/DL % Saturation (12.00-45.00) Microbiology - Last 24 Hours (Table) 05/13/23 11:11 Blood Culture - Preliminary Blood 05/13/23 11:11 Blood Culture - Preliminary Blood Assessment and Plan Plan: Assessment: 1. Acute kidney injury secondary to ATN secondary to cardiorenal syndrome. Started on hemodialysis 05/07/2023 due to severe volume overload and low urine output. Has permacath. 2. Acute on chronic systolic CHF with ejection fraction of 40-45% with severe pulmonary hypertension. 3. Anemia. Iron deficiency noted. 4. Volume overload. Improved with ultrafiltration. 5. Diabetes mellitus. Plan: Another treatment of hemodialysis today most of her ultrafiltration. Maintain IV Lasix. Follow-up cultures. Add IV iron. Monitor for renal recovery outpatient.
[2023-05-15 11:56] LABS: Glucose,Whole Blood 227 mg/dL (70-110)
--- NOTE | 2023-05-15 12:13 | P.PN ---
Subjective Progress Note Date: 05/15/23 Patient is a 57-year-old white female was being seen for shortness of breath. The patient is known to have multiple medical problems and comorbidities. The patient's is quite debilitated despite her young age. She had a recent prolonged hospitalization for CHF and right foot wound, which was treated inpatient with antibiotics. Subsequently, developing acute renal failure requiring hemodialysis catheter placement on May 10. She was discharged on May 11. Other past medical history includes CHF, diabetes mellitus, hypertension, hyperlipidemia COPD, and tobacco dependence. Patient presented the hospital yesterday morning complaining of progressively worsening shortness of breath since her recent hospital discharge 2 days prior. She does have right IJ hemodialysis catheter, and was scheduled to start a /SAT HD schedule today. She still produces urine. She is currently lying in bed, on 3 L/m nasal cannula, in no acute distress. She denies any chest pain, heart palpitations, syncope, lower extremity swelling. Admits chronic cough, mostly nonproductive, with occasional clear sputum production. Denies any fevers at home, however, was noted to have mild fever of 100.1F on arrival. Chest x-ray showed a stable heart with interstitial changes. No focal infiltrates. Follow-up Chest CT demonstrates borderline cardiomegaly and small bilateral effusions. Partially calcified mediastinal and hilar lymph nodes. There is scattered lymphadenopathy throughout which could be secondary to third spacing of fluid. There is also severe coronary atherosclerosis. Upon further questioning, the patient has no history of pulmonary infection, no previous history of histoplasma infection. No previous history of sarcoidosis. No previous history of radiation therapy or chest malignancy. No cell lymphoma. CBC on arrival: WBC count 9.1, hemoglobin 10.5, hematocrit 34.7, platelets 190. BMP arrival: Sodium 137, potassium 4.6, chloride 100, serum bicarbonate 25, BUN 23, creatinine 1.64, glucose 436. Lactic acid level I. Urinalysis not concerning for UTI. Negative for inf luenza, RSV, COVID-19. Vital signs are stable. This morning, the patient is undergoing hemodialysis with a goal of ultrafiltration of around 2.4 L. She is, comfortable. He is already on 4 L of oxygen by nasal cannula. She is afebrile for now. Cultures are been sent and results are still pending for now. The patient on a combination of Rocephin and Zithromax. On today's evaluation of 05/05/2023, the patient is supposed to have another session of hemodialysis. The patient was admitted on oxygen at 2 L per minute nasal cannula. I was told that with exertion and room air oxygen, the patient desaturates still. We'll going to reevaluate her condition following her hemodialysis ultrafiltration. I'm suspecting that the patient's oxygen will improve following hemodialysis and optimization of the volume status. Note that she had bilateral pleural effusions. As for the mediastinal lymphadenopathy, this can be worked up on outpatient basis. She is afebrile. Hemodynamically stable. No significant elevation of the blood pressure. The enzymes at 24 with a creatinine of 1.59 and the potassium levels at 3.7. Limited echocardiogram shows impaired LV function with an ejection fraction of 35-40% and the patient had evidence of severe pulmonary hypertension. There was also enlargement of the right ventricle. It is possible that the patient was chronic hypoxic as the patient has significant amount of pulmonary hypertension on echocardiogram. Objective - Vital Signs Vital signs: Vital Signs Temp 97.8 F 05/15/23 04:00 Pulse 74 05/15/23 09:03 Resp 18 05/15/23 04:00 BP 138/74 05/15/23 04:00 Pulse Ox 98 05/15/23 08:44 FiO2 Intake & Output 05/14/23 05/15/23 05/15/23 18:59 06:59 18:59 Intake Total 520 222 Output Total 2400 Balance -1880 222 Weight 69.2 kg 63.8 kg Intake: Oral 120 222 Hemodialysis 400 Output: Hemodialysis 2400 Other: # Voids 1 # Bowel Movements 1 1 1 - Exam NGENERAL EXAM: Alert, 57-year-old white female, comfortable in no apparent distress. The patient is currently on 3 L of oxygen by nasal cannula with a pulse ox 97% HEAD: Normocephalic and atraumatic EYES: Normal reaction of pupils, equal size. NOSE: Clear with pink turbinates. THROAT: No erythema or exudates. NECK: No masses, no JVD. CHEST: No chest wall deformity. LUNGS: Equal air entry with faint end expiratory wheezes. No crackles, rhonchi, or focal dullness. No conversational dyspnea or accessory muscle use. The breath sounds are quite diminished in the lung bases bilaterally. CVS: S1 and S2 normal with grade III systolic murmur, regular rhythm. No other extra heart sounds ABDOMEN: No hepatosplenomegaly, active bowel sounds, no guarding or rigidity. SPINE: No scoliosis or deformity SKIN: No rashes. CENTRAL NERVOUS SYSTEM: No focal deficits, tone is normal in all 4 extremities. EXTREMITIES: There is no peripheral edema, clubbing, or cyanosis. Peripheral pulses are diminished Right dorsal foot wound/laceration, healing no evidence of cellulitis. Right heel pressure ulcer around 2 inches wide and the base is clear and there is no active drainage at this point in time. Pulses in lower extremities are quite diminished. - Labs CBC & Chem 7: 05/14/23 08:09 05/15/23 08:34 Labs: Abnormal Lab Results - Last 24 Hours (Table) 05/14/23 05/14/23 05/14/23 Range/Units 02:16 11:52 16:54 Sodium (137-145) mmol/L BUN (7-17) mg/dL Creatinine (0.52-1.04) mg/dL Glucose (74-99) mg/dL POC Glucose (mg/dL) 191 H 120 H (70-110) mg/dL Plasma Lactic Acid [place] (0.7-2.0) mmol/L Phosphorus (2.5-4.5) mg/dL Iron 11 L (50-170) UG/DL % Saturation 3.64 L (12.00-45.00) 05/14/23 05/14/23 05/15/23 Range/Units 18:26 21:48 08:34 Sodium 136 L (137-145) mmol/L BUN 24 H (7-17) mg/dL Creatinine 1.59 H (0.52-1.04) mg/dL Glucose 191 H (74-99) mg/dL POC Glucose (mg/dL) 167 H (70-110) mg/dL Plasma Lactic Acid [place] 0.6 L (0.7-2.0) mmol/L Phosphorus 4.7 H (2.5-4.5) mg/dL Iron (50-170) UG/DL % Saturation (12.00-45.00) Microbiology - Last 24 Hours (Table) 05/13/23 11:11 Blood Culture - Preliminary Blood 05/13/23 11:11 Blood Culture - Preliminary Blood Assessment and Plan Plan: Acute hypoxic respiratory failure, likely on the basis of CHF/fluid overload and the patient has developed bilateral pleural effusions, currently on 2 L of O2 nasal cannula CHF with mild impairment of LV function with an ejection fraction of 40-45% and moderate MR and severe pulmonary hypertension based on echocardiogram Mediastinal lymphadenopathy with significant mediastinal lymph node calcification. Rule out an old sarcoidosis. Rule out previous adenomatous infection of the lung including Histoplasma. Lymphoma is felt to be less likely. No previous images for comparison. The chronicity of this problem is not well-established. Bilateral pleural effusions likely on the basis of underlying CHF and volume overload. Acute febrile illness, under investigation for now. The patient is currently on Rocephin. Cultures are still pending. Pneumonia is doubtful. End-stage renal disease currently on hemodialysis. The patient is undergoing chemo last and regular basis. The urine output is diminished, the patient continues to have some edema lower extremities bilaterally. The patient is scheduled to undergo hemodialysis 3 times a week Tuesdays and Saturdays. She was started on hemodialysis in 05/07/2023 and she has some volume overload and low urine output. Chronic right heel wound, no evidence of cellulitis , this is a diabetic wound that has no signs of any active infection. Chronic anemia, anemia of chronic disease Diabetes mellitus type 2 Hypertension Hyperlipidemia Chronic tobacco dependence Plan The fever workup will be completed and cultures were sent, the patient is currently afebrile and blood cultures are still negative Continue IV Rocephin Continue hemodialysis with ultrafiltration to be done today Repeat chest x-ray post hemodialysis Monitor respiratory status and she should be able to gradually wean down FiO2 as tolerated currently on 2 L May need home O2 The mediastinal lymphadenopathy which is partially calcified is probably chronic. We can contemplate and endobronchial ultrasound the later stage to establish a tissue diagnosis. Suspect all granulomatous infection versus sarcoidosis. Malignancy is felt to be less likely. Resume all medications Wound care We'll continue to follow
--- NOTE | 2023-05-15 12:21 | P.PN ---
Subjective Progress Note Date: 05/15/23 Principal diagnosis: Reason for follow-up is fever Patient is a 57-year-old female with a past medical history significant for diabetes mellitus, hypertension right heel diabetic foot wound and cellulitis with recent admission to the hospital local culture positive for Pseudomonas Enterococcus and the patient received 3-week course of IV Zosyn during the hospital stay the patient also developed renal failure requiring dialysis, presenting back to the hospital with worsening shortness of breath and also have a fever. Chest x-ray was suggestive of CHF, CT of the chest small bilateral effusion and cardiomegaly lymphadenopathy scattered throughout. On today's evaluation that is 05/15/2023, the patient did spike a fever of 102.9 F last night the patient is afebrile this morning, the patient is breathing slightly comfortably on 4 L nasal cannula oxygen the patient denies having any chest pain she did have a cough but not bring up any sputum, patient denies osborne ving any vomiting no abdominal pain no diarrhea or pain to the right heel wound. Patient did have white count of 4.0 as of yesterday, creatinine is 1.59, procalcitonin 0.10 Objective - Vital Signs Vital signs: Vital Signs Temp 97.8 F 05/15/23 04:00 Pulse 74 05/15/23 09:03 Resp 18 05/15/23 04:00 BP 138/74 05/15/23 04:00 Pulse Ox 98 05/15/23 08:44 FiO2 Intake & Output 05/14/23 05/15/23 05/15/23 18:59 06:59 18:59 Intake Total 520 222 Output Total 2400 Balance -1880 222 Weight 69.2 kg 63.8 kg Intake: Oral 120 222 Hemodialysis 400 Output: Hemodialysis 2400 Other: # Voids 1 # Bowel Movements 1 1 1 - Exam GENERAL DESCRIPTION: Middle-aged female lying in bed in no distress RESPIRATORY SYSTEM: Unlabored breathing , decreased breath sounds at bases HEART: S1 S2 regular rate and rhythm , ABDOMEN: Soft , no tenderness EXTREMITIES: Right heel wound is currently dressed - Labs CBC & Chem 7: 05/14/23 08:09 05/15/23 08:34 Labs: Abnormal Lab Results - Last 24 Hours (Table) 05/14/23 05/14/23 05/14/23 Range/Units 02:16 11:52 16:54 Sodium (137-145) mmol/L BUN (7-17) mg/dL Creatinine (0.52-1.04) mg/dL Glucose (74-99) mg/dL POC Glucose (mg/dL) 191 H 120 H (70-110) mg/dL Plasma Lactic Acid [place] (0.7-2.0) mmol/L Phosphorus (2.5-4.5) mg/dL Iron 11 L (50-170) UG/DL % Saturation 3.64 L (12.00-45.00) 05/14/23 05/14/23 05/15/23 Range/Units 18:26 21:48 08:34 Sodium 136 L (137-145) mmol/L BUN 24 H (7-17) mg/dL Creatinine 1.59 H (0.52-1.04) mg/dL Glucose 191 H (74-99) mg/dL POC Glucose (mg/dL) 167 H (70-110) mg/dL Plasma Lactic Acid [place] 0.6 L (0.7-2.0) mmol/L Phosphorus 4.7 H (2.5-4.5) mg/dL Iron (50-170) UG/DL % Saturation (12.00-45.00) Microbiology - Last 24 Hours (Table) 05/13/23 11:11 Blood Culture - Preliminary Blood 05/13/23 11:11 Blood Culture - Preliminary Blood Assessment and Plan (1) Pressure ulcer of right heel, stage 3 Current Visit: No Status: Acute Code(s): L89.613 - PRESSURE ULCER OF RIGHT HEEL, STAGE 3 SNOMED Code(s): 73674625381758 (2) Fever Current Visit: Yes Status: Acute Code(s): R50.9 - FEVER, UNSPECIFIED SNOMED Code(s): 693938498 Plan: 1-patient presented to hospital with fever also complaining of increasing shortness of breath and cough however the chest x-ray is mostly suggestive of CHF rather than pneumonia 2-patient did have right heel wound which seem to be healing well with no evidence of any cellulitis 3-local wound care to the right heel with Aquacel silver dressing change every 48 hour 4-patient did have persistent fever concerning for possible line related we will go ahead and discontinue Rocephin and Zithromax start patient on daptomycin and cefepime repeat culture has been ordered Dictation was produced using [employer] software. please excuse any grammatical, word or spelling errors. Time with Patient: Greater than 30
--- NOTE | 2023-05-15 13:59 | P.PN ---
Subjective Progress Note Date: 05/15/23 Reason for Consult (text): Pulmonary edema History of present illness: History of present illness: This is a 57-year-old female with past medical history of diabetes, hypertension, hyperlipidemia, chronic systolic and diastolic heart failure, cardiomyopathy undetermined type, pulmonary hypertension, COPD, tobacco use and dependence, chronic kidney disease. We have been asked to evaluate the patient for pulmonary edema. Patient had a recent hospitalization March 2001. During that hospitalization, patient was started on hemodialysis. Patient presented to the hospital with the vertebral 4-1.2. She states she has not been feeling well for the past 1-1/2 days with shortness of breath and chest heaviness. She denies any previous cardiac history and no stents done on her. She complains of a cough. She is not requiring home oxygen but this morning had a pulse ox of 86% on room air and was started on oxygen. Patient has been started on IV antibiotics. Dialysis as scheduled on Saturday. She states her last dialysis was on Saturday. EKG sinus rhythm with no acute changes. Chest x-ray: Findings of CHF. CT of the chest revealed small bilateral pleural effusions with anasarca and cardiomegaly. Correlate for congestive heart failure. Right central venous catheter with tip in the superior vena cava. Lymphadenopathy scattered throughout. Severe coronary artery atherosclerosis. WBC 4, hemoglobin 8.7, platelet count 143. Sodium 134, potassium 4.8, BUN 26 and creatinine 1.7. Blood sugar 174. Alkaline phosphatase 171 and otherwise liver function tests are normal. C-reactive protein 4.4. ProBNP 26,300. Troponin negative 1. Influenza A, influenza B, RNC, Covid 19 not detected Home cardiac medications: Atorvastatin 40 mg daily, Coreg 25 mg twice daily, Farxiga 5 milligrams daily, Zetia 10 mg daily, Lasix 60 mg twice daily, hydralazine 25 mg 3 times daily, metolazone 5 mg daily. Echocardiogram performed on 04/17/2023 revealed moderately impaired left ventricular systolic function with global hypokinesis, EF 40-45%. Moderate mitral and tricuspid regurgitation. Severe pulmonary hypertension. 05/15 Patient is seen today on the CSD unit. SHe is currently undergoing HD and to remove 2 L today. Patient is currently on IV Lasix 80 mg every 12 hours. Yesterday we discontinued metolazone and started patient on Imdur. Blood pressure 138/74, heart rate in the 70s. Pulse ox 97% on 4 L. Repeat blood work reveals BUN 24 creatinine 1.59. Sodium 136 and potassium 3.7. Phosphorus 4.7, magnesium 2.0. Nephrology has started Ferrelcit. Physical examination: Gen: This is a 57-year-old female resting in bed and appears to be in no acute distress VS: reviewed HEENT: Head is atraumatic, normocephalic. Pupils equal, round. Sclerae is anicteric. LUNGS: Diminished breath sounds. No intercostal retractions. HEART: Regular rate and rhythm. No murmur. ABDOMEN: Soft No tenderness. EXTREMITIES: No pedal edema. No calf tenderness. NEUROLOGICAL: Patient is awake, alert and oriented x3. Assessment: Acute febrile illness Acute hypoxic respiratory failure Acute on chronic systolic heart failure and diastolic heart failure Bilateral pleural effusions Cardiomyopathy Hypertension Hyperlipidemia Pulmonary hypertension COPD End-stage renal disease on hemodialysis Chronic anemia Thrombocytopenia Diabetes mellitus type 2 Tobacco use and dependence Severe coronary artery atherosclerosis on CT imaging Heel cellulitis Plan: Continue patient's home cardiac medications Hold IV Lasix for today Continue patient on Imdur 15 mg daily Monitor I and O, daily weights, electrolytes and renal function No need to repeat echocardiogram Febrile illness workup per ID Further recommendations to follow based upon clinical course Nurse practitioner note has been reviewed, I agree with documented findings and plan of care. Patient was seen and examined. Objective - Vital Signs Vital signs: Vital Signs Temp 97.8 F 05/15/23 04:00 Pulse 80 05/15/23 11:45 Resp 18 05/15/23 04:00 BP 138/74 05/15/23 04:00 Pulse Ox 98 05/15/23 08:44 FiO2 Intake & Output 05/14/23 05/15/23 05/15/23 18:59 06:59 18:59 Intake Total 520 222 Output Total 2400 Balance -1880 222 Weight 69.2 kg 63.8 kg Intake: Oral 120 222 Hemodialysis 400 Output: Hemodialysis 2400 Other: # Voids 1 # Bowel Movements 1 1 1 - Labs CBC & Chem 7: 05/14/23 08:09 05/15/23 08:34 Labs: Abnormal Lab Results - Last 24 Hours (Table) 05/14/23 05/14/23 05/14/23 Range/Units 02:16 11:52 16:54 Sodium (137-145) mmol/L BUN (7-17) mg/dL Creatinine (0.52-1.04) mg/dL Glucose (74-99) mg/dL POC Glucose (mg/dL) 191 H 120 H (70-110) mg/dL Plasma Lactic Acid [place] (0.7-2.0) mmol/L Phosphorus (2.5-4.5) mg/dL Iron 11 L (50-170) UG/DL % Saturation 3.64 L (12.00-45.00) 05/14/23 05/14/23 05/15/23 Range/Units 18:26 21:48 08:34 Sodium 136 L (137-145) mmol/L BUN 24 H (7-17) mg/dL Creatinine 1.59 H (0.52-1.04) mg/dL Glucose 191 H (74-99) mg/dL POC Glucose (mg/dL) 167 H (70-110) mg/dL Plasma Lactic Acid [place] 0.6 L (0.7-2.0) mmol/L Phosphorus 4.7 H (2.5-4.5) mg/dL Iron (50-170) UG/DL % Saturation (12.00-45.00) Microbiology - Last 24 Hours (Table) 05/13/23 11:11 Blood Culture - Preliminary Blood 05/13/23 11:11 Blood Culture - Preliminary Blood
[2023-05-15 16:38] LABS: Glucose,Whole Blood 146 mg/dL (70-110)
[2023-05-15] MEDS: SODIUM FERRIC GLUCONAT-SUCROSE 125 MG in SODIUM CHLORIDE 0.9% 100 ML IVPB SCH (18:22)
[2023-05-15 20:13] LABS: Glucose,Whole Blood 168 mg/dL (70-110)
[2023-05-15] MEDS: CEFEPIME 2 GM in SODIUM CHLORIDE 0.9% 100 ML IVPB SCH (21:01)
--- NOTE | 2023-05-15 22:58 | PN ---
PROGRESS NOTE SUBJECTIVE: This is a 57-year-old white female, mostly obtunded on 05/14/2023 all day. She has severe COPD, generalized weakness, fatigue, atypical chest pain, uncontrolled diabetes. OBJECTIVE: VITAL SIGNS: Temperature 98.1, blood pressure 137/66, and O2 97% on 2 L. CARDIOVASCULAR: S1, S2. LUNGS: Decreased breath sounds x4. GI: Soft, nontender. HEMATOLOGY: Negative for Homans. Her BUN is 24, creatinine 1.59, GFR is 41. Sugars are in the mid 100s to 200s. Phosphorus 4.7, sodium 136, hemoglobin is 8.7 down from 10.5, white count is 4.0. Continue current treatment. Continue on breathing treatments, IV steroids. Dialysis as needed for chronic kidney disease. Cardiomyopathy, diastolic and systolic heart failure, bilateral pleural effusion, anasarca. Continue with Lasix. Severe coronary calcifications on CAT scan. Ejection fraction on the echo was 40% to 45%. Severe pulmonary hypertension. ASSESSMENT: Acute febrile illness, hypoxia respiratory failure, possible aspiration pneumonia, chronic systolic diastolic heart failure, bilateral perfusion cardiomyopathy, hypertension, dyslipidemia, pulmonary hypertension, COPD, end-stage renal disease, chronic anemia, thrombocytopenia, type 2 diabetes mellitus, nicotine addiction, severe coronary arthrosclerosis, heel cellulitis. Continue with home cardiac medicines. Hold IV Lasix. Continue on Imdur. Monitor renal functions. Continue with IV antibiotics, steroids, breathing treatments. Prognosis guarded. MMODL / IJN: [id number] /
[2023-05-16 06:02] LABS: Glucose,Whole Blood 160 mg/dL (70-110)
[2023-05-16 11:32] LABS: Glucose,Whole Blood 80 mg/dL (70-110)
[2023-05-16] MEDS ORDERED: ALPRAZolam 0.25 MG TAB PO PRN (11:51)
[2023-05-16] MEDS ORDERED: NITROGLYCERIN SL TABS 0.4 MG TAB SUBLINGUAL PRN (11:51)
[2023-05-16] MEDS ORDERED: ALPRAZolam 0.5 MG TAB PO PRN (11:51)
--- NOTE | 2023-05-16 12:42 | P.PN ---
Subjective Patient is seen in follow-up for acute kidney injury, hemodialysis dependent. Tolerated 2 L ultrafiltration yesterday. Undergoing another treatment currently. Dyspnea improved. Hemodynamically stable. Vital signs are stable. General: No acute distress. HEENT: Head exam is unremarkable. On nasal cannula. LUNGS: No audible rhonchi or wheezes. HEART: Rate and Rhythm are regular. ABDOMEN: Nontender. EXTREMITITES: Trace edema. Objective - Vital Signs Vital signs: Vital Signs Temp 97.8 F 05/16/23 04:00 Pulse 72 05/16/23 12:30 Resp 18 05/16/23 04:00 BP 134/61 05/16/23 04:00 Pulse Ox 94 L 05/16/23 04:00 FiO2 Intake & Output 05/15/23 05/16/23 05/16/23 18:59 06:59 18:59 Intake Total 1044 600 0 Output Total 2100 Balance -1056 600 0 Weight 65.5 kg Intake: Oral 444 600 0 Hemodialysis 600 Output: Hemodialysis 2100 Other: # Voids 0 # Bowel Movements 1 - Labs CBC & Chem 7: 05/14/23 08:09 05/15/23 08:34 Labs: Abnormal Lab Results - Last 24 Hours (Table) 05/15/23 05/15/23 05/16/23 Range/Units 16:37 20:11 05:59 POC Glucose (mg/dL) 146 H 168 H 160 H (70-110) mg/dL Microbiology - Last 24 Hours (Table) 05/14/23 08:09 Blood Culture - Preliminary Blood 05/13/23 11:11 Blood Culture - Preliminary Blood 05/13/23 11:11 Blood Culture - Preliminary Blood Assessment and Plan Plan: Assessment: 1. Acute kidney injury secondary to ATN secondary to cardiorenal syndrome. Started on hemodialysis 05/07/2023 due to severe volume overload and low urine output. Has permacath. 2. Acute on chronic systolic CHF with ejection fraction of 40-45% with severe pulmonary hypertension. 3. Anemia. Iron deficiency noted. 4. Volume overload. Improved with ultrafiltration. 5. Diabetes mellitus. 6. Right heel cellulitis on antibiotics. Plan: Currently seen what undergoing hemodialysis. Next treatment Saturday. Add torsemide 40 mg once daily. Follow-up cultures. Stop IV iron due to active infection. Add Aranesp Monitor for renal recovery outpatient.
--- NOTE | 2023-05-16 14:45 | P.PN ---
Subjective Progress Note Date: 05/16/23 Patient is a 57-year-old white female was being seen for shortness of breath. The patient is known to have multiple medical problems and comorbidities. The patient's is quite debilitated despite her young age. She had a recent prolonged hospitalization for CHF and right foot wound, which was treated inpatient with antibiotics. Subsequently, developing acute renal failure requiring hemodialysis catheter placement on May 10. She was discharged on May 11. Other past medical history includes CHF, diabetes mellitus, hypertension, hyperlipidemia COPD, and tobacco dependence. Patient presented the hospital yesterday morning complaining of progressively worsening shortness of breath since her recent hospital discharge 2 days prior. She does have right IJ hemodialysis catheter, and was scheduled to start a /SAT HD schedule today. She still produces urine. She is currently lying in bed, on 3 L/m nasal cannula, in no acute distress. She denies any chest pain, heart palpitations, syncope, lower extremity swelling. Admits chronic cough, mostly nonproductive, with occasional clear sputum production. Denies any fevers at home, however, was noted to have mild fever of 100.1F on arrival. Chest x-ray showed a stable heart with interstitial changes. No focal infiltrates. Follow-up Chest CT demonstrates borderline cardiomegaly and small bilateral effusions. Partially calcified mediastinal and hilar lymph nodes. There is scattered lymphadenopathy throughout which could be secondary to third spacing of fluid. There is also severe coronary atherosclerosis. Upon further questioning, the patient has no history of pulmonary infection, no previous history of histoplasma infection. No previous history of sarcoidosis. No previous history of radiation therapy or chest malignancy. No cell lymphoma. CBC on arrival: WBC count 9.1, hemoglobin 10.5, hematocrit 34.7, platelets 190. BMP arrival: Sodium 137, potassium 4.6, chloride 100, serum bicarbonate 25, BUN 23, creatinine 1.64, glucose 436. Lactic acid level I. Urinalysis not concerning for UTI. Negative for inf luenza, RSV, COVID-19. Vital signs are stable. This morning, the patient is undergoing hemodialysis with a goal of ultrafiltration of around 2.4 L. She is, comfortable. He is already on 4 L of oxygen by nasal cannula. She is afebrile for now. Cultures are been sent and results are still pending for now. The patient on a combination of Rocephin and Zithromax. On today's evaluation of 05/05/2023, the patient is supposed to have another session of hemodialysis. The patient was admitted on oxygen at 2 L per minute nasal cannula. I was told that with exertion and room air oxygen, the patient desaturates still. We'll going to reevaluate her condition following her hemodialysis ultrafiltration. I'm suspecting that the patient's oxygen will improve following hemodialysis and optimization of the volume status. Note that she had bilateral pleural effusions. As for the mediastinal lymphadenopathy, this can be worked up on outpatient basis. She is afebrile. Hemodynamically stable. No significant elevation of the blood pressure. The enzymes at 24 with a creatinine of 1.59 and the potassium levels at 3.7. Limited echocardiogram shows impaired LV function with an ejection fraction of 35-40% and the patient had evidence of severe pulmonary hypertension. There was also enlargement of the right ventricle. It is possible that the patient was chronic hypoxic as the patient has significant amount of pulmonary hypertension on echocardiogram. On 05/06/2023, the patient is doing well. On room air pulse ox was 94%. A follow-up visit will be done today. Meanwhile, the patient is undergoing another session of hemodialysis with another 2 L of ultrafiltration. She is resting comfortably in bed. Blood pressure stable. No cough or sputum production. No chest pain. While on dialysis, the patient was placed on 2 L of oxygen by nasal cannula. Denies having any significant respiratory distress. Objective - Vital Signs Vital signs: Vital Signs Temp 97.8 F 05/16/23 04:00 Pulse 64 05/16/23 09:16 Resp 18 05/16/23 04:00 BP 134/61 05/16/23 04:00 Pulse Ox 94 L 05/16/23 04:00 FiO2 Intake & Output 05/15/23 05/16/23 05/16/23 18:59 06:59 18:59 Intake Total 1044 600 0 Output Total 2100 Balance -1056 600 0 Weight 65.5 kg Intake: Oral 444 600 0 Hemodialysis 600 Output: Hemodialysis 2100 Other: # Voids 0 # Bowel Movements 1 - Exam NGENERAL EXAM: Alert, 57-year-old white female, comfortable in no apparent distress. The patient is currently on 2 L of oxygen by nasal cannula with a pulse ox 97% HEAD: Normocephalic and atraumatic EYES: Normal reaction of pupils, equal size. NOSE: Clear with pink turbinates. THROAT: No erythema or exudates. NECK: No masses, no JVD. CHEST: No chest wall deformity. LUNGS: Equal air entry with faint end expiratory wheezes. No crackles, rhonchi, or focal dullness. No conversational dyspnea or accessory muscle use. The breath sounds are quite diminished in the lung bases bilaterally. CVS: S1 and S2 normal with grade III systolic murmur, regular rhythm. No other extra heart sounds ABDOMEN: No hepatosplenomegaly, active bowel sounds, no guarding or rigidity. SPINE: No scoliosis or deformity SKIN: No rashes. CENTRAL NERVOUS SYSTEM: No focal deficits, tone is normal in all 4 extremities. EXTREMITIES: There is no peripheral edema, clubbing, or cyanosis. Peripheral pulses are diminished Right dorsal foot wound/laceration, healing no evidence of cellulitis. Right heel pressure ulcer around 2 inches wide and the base is clear and there is no active drainage at this point in time. Pulses in lower extremities are quite diminished. - Labs CBC & Chem 7: 05/14/23 08:09 05/15/23 08:34 Labs: Abnormal Lab Results - Last 24 Hours (Table) 05/15/23 05/15/23 05/15/23 Range/Units 11:54 16:37 20:11 POC Glucose (mg/dL) 227 H 146 H 168 H (70-110) mg/dL 05/16/23 Range/Units 05:59 POC Glucose (mg/dL) 160 H (70-110) mg/dL Microbiology - Last 24 Hours (Table) 05/14/23 08:09 Blood Culture - Preliminary Blood 05/13/23 11:11 Blood Culture - Preliminary Blood 05/13/23 11:11 Blood Culture - Preliminary Blood Assessment and Plan Plan: Acute hypoxic respiratory failure, likely on the basis of CHF/fluid overload and the patient has developed bilateral pleural effusions, currently on 2 L of O2 nasal cannula, she is also tolerating room air oxygen. CHF with mild impairment of LV function with an ejection fraction of 40-45% and moderate MR and severe pulmonary hypertension based on echocardiogram Mediastinal lymphadenopathy with significant mediastinal lymph node calcification. Rule out an old sarcoidosis. Rule out previous adenomatous infection of the lung including Histoplasma. Lymphoma is felt to be less likely. No previous images for comparison. The chronicity of this problem is not well-established. Bilateral pleural effusions likely on the basis of underlying CHF and volume overload. Acute febrile illness, under investigation for now. The patient is currently on Rocephin. Cultures are still pending. Pneumonia is doubtful. End-stage renal disease currently on hemodialysis. The patient is undergoing chemo last and regular basis. The urine output is diminished, the patient continues to have some edema lower extremities bilaterally. The patient is scheduled to undergo hemodialysis 3 times a week Tuesdays and Saturdays. She was started on hemodialysis in 05/07/2023 and she has some volume overload and low urine output. Chronic right heel wound, no evidence of cellulitis , this is a diabetic wound that has no signs of any active infection. Chronic anemia, anemia of chronic disease Diabetes mellitus type 2 Hypertension Hyperlipidemia Chronic tobacco dependence Plan Clinically improving. A follow-up CAT scan will be done after the patient completed hemodialysis today. The fever workup will be completed and cultures were sent, the patient is currently afebrile and blood cultures are still negative Continue IV Rocephin, all of the cultures are negative Continue hemodialysis with ultrafiltration to be done today Monitor respiratory status and she should be able to gradually wean down FiO2 as tolerated currently on 2 L, should be able to tolerate room air oxygen May need home O2 with evaluated the time of discharge The mediastinal lymphadenopathy which is partially calcified is probably chronic. We can contemplate and endobronchial ultrasound the later stage to establish a tissue diagnosis. Suspect all granulomatous infection versus sarcoidosis. Malignancy is felt to be less likely. Resume all medications Wound care We'll continue to follow
--- NOTE | 2023-05-16 15:04 | P.PN ---
Subjective Progress Note Date: 05/16/23 Principal diagnosis: Reason for follow-up is fever Patient is a 57-year-old female with a past medical history significant for diabetes mellitus, hypertension right heel diabetic foot wound and cellulitis with recent admission to the hospital local culture positive for Pseudomonas Enterococcus and the patient received 3-week course of IV Zosyn during the hospital stay the patient also developed renal failure requiring dialysis, presenting back to the hospital with worsening shortness of breath and also have a fever. Chest x-ray was suggestive of CHF, CT of the chest small bilateral effusion and cardiomegaly lymphadenopathy scattered throughout. On today's evaluation that is 05/16/2023 the patient did have resolution of her fever and did not have any fever last night or this morning, the patient is breathing comfortably on 2 L nasal cannula oxygen, patient denies chest pain did have occasional dry cough, the patient denies having any abdominal pain no naus ea vomiting and no diarrhea, denies pain to the right heel wound Patient did have white count of 4.0 as of 05/14/2023, creatinine is 1.59 as of yesterday no lab draw today, cultures are pending, procalcitonin 0.10 Objective - Vital Signs Vital signs: Vital Signs Temp 97.6 F 05/16/23 12:51 Pulse 62 05/16/23 12:51 Resp 18 05/16/23 12:51 BP 151/80 05/16/23 12:51 Pulse Ox 95 05/16/23 12:51 FiO2 Intake & Output 05/15/23 05/16/23 05/16/23 18:59 06:59 18:59 Intake Total 1044 600 400 Output Total 2100 3000 Balance -1056 600 -2600 Weight 65.5 kg Intake: Oral 444 600 0 Hemodialysis 600 400 Output: Hemodialysis 2100 3000 Other: # Voids 0 # Bowel Movements 1 - Exam GENERAL DESCRIPTION: Middle-aged female lying in bed in no distress RESPIRATORY SYSTEM: Unlabored breathing , decreased breath sounds at bases HEART: S1 S2 regular rate and rhythm , ABDOMEN: Soft , no tenderness EXTREMITIES: Right heel wound is currently dressed - Labs CBC & Chem 7: 05/14/23 08:09 05/15/23 08:34 Labs: Abnormal Lab Results - Last 24 Hours (Table) 05/15/23 05/15/23 05/16/23 Range/Units 16:37 20:11 05:59 POC Glucose (mg/dL) 146 H 168 H 160 H (70-110) mg/dL Microbiology - Last 24 Hours (Table) 05/14/23 08:09 Blood Culture - Preliminary Blood 05/13/23 11:11 Blood Culture - Preliminary Blood 05/13/23 11:11 Blood Culture - Preliminary Blood Assessment and Plan (1) Pressure ulcer of right heel, stage 3 Current Visit: No Status: Acute Code(s): L89.613 - PRESSURE ULCER OF RIGHT HEEL, STAGE 3 SNOMED Code(s): 95954459851530 (2) Fever Current Visit: Yes Status: Acute Code(s): R50.9 - FEVER, UNSPECIFIED SNOMED Code(s): 500763704 Plan: 1-patient presented to hospital with fever also complaining of increasing shortness of breath and cough however the chest x-ray is mostly suggestive of CHF rather than pneumonia 2-patient did have right heel wound which seem to be healing well with no evidence of any cellulitis 3-local wound care to the right heel with Aquacel silver dressing change every 48 hour 4-patient did have resolution of her fever with adjustment of antibiotic to daptomycin cefepime to continue while waiting for the culture to finalize Dictation was produced using [employer] dictation software. please excuse any grammatical, word or spelling errors. Time with Patient: Less than 30
--- NOTE | 2023-05-16 15:14 | XR ---
EXAMINATION TYPE: XR chest 1V DATE OF EXAM: 05/16/2023 COMPARISON: 05/13/2023 HISTORY: Pleural effusion TECHNIQUE: Single frontal view of the chest is obtained. FINDINGS: Heart is enlarged. There is no sizable pleural effusion or pneumothorax. Bilateral perihil ar infiltrates. Atherosclerotic change aorta. Dialysis catheter noted. Diffuse osteopenia with arthro rosemary of the shoulders. IMPRESSION: 1. Bilateral upper lobe perihilar infiltrate. 2. No sizable pleural effusion.
[2023-05-16] MEDS: TORSEMIDE 20 MG TAB PO SCH (15:21)
--- NOTE | 2023-05-16 15:29 | P.PN ---
Subjective Progress Note Date: 05/16/23 Reason for Consult (text): Pulmonary edema History of present illness: History of present illness: This is a 57-year-old female with past medical history of diabetes, hypertension, hyperlipidemia, chronic systolic and diastolic heart failure, cardiomyopathy undetermined type, pulmonary hypertension, COPD, tobacco use and dependence, chronic kidney disease. We have been asked to evaluate the patient for pulmonary edema. Patient had a recent hospitalization March 2001. During that hospitalization, patient was started on hemodialysis. Patient presented to the hospital with the vertebral 4-1.2. She states she has not been feeling well for the past 1-1/2 days with shortness of breath and chest heaviness. She denies any previous cardiac history and no stents done on her. She complains of a cough. She is not requiring home oxygen but this morning had a pulse ox of 86% on room air and was started on oxygen. Patient has been started on IV antibiotics. Dialysis as scheduled on Saturday. She states her last dialysis was on Saturday. EKG sinus rhythm with no acute changes. Chest x-ray: Findings of CHF. CT of the chest revealed small bilateral pleural effusions with anasarca and cardiomegaly. Correlate for congestive heart failure. Right central venous catheter with tip in the superior vena cava. Lymphadenopathy scattered throughout. Severe coronary artery atherosclerosis. WBC 4, hemoglobin 8.7, platelet count 143. Sodium 134, potassium 4.8, BUN 26 and creatinine 1.7. Blood sugar 174. Alkaline phosphatase 171 and otherwise liver function tests are normal. C-reactive protein 4.4. ProBNP 26,300. Troponin negative 1. Influenza A, influenza B, RNC, Covid 19 not detected Home cardiac medications: Atorvastatin 40 mg daily, Coreg 25 mg twice daily, Farxiga 5 milligrams daily, Zetia 10 mg daily, Lasix 60 mg twice daily, hydralazine 25 mg 3 times daily, metolazone 5 mg daily. Echocardiogram performed on 04/17/2023 revealed moderately impaired left ventricular systolic function with global hypokinesis, EF 40-45%. Moderate mitral and tricuspid regurgitation. Severe pulmonary hypertension. 05/15 Patient is seen today on the CSD unit. SHe is currently undergoing HD and to remove 2 L today. Patient is currently on IV Lasix 80 mg every 12 hours. Yesterday we discontinued metolazone and started patient on Imdur. Blood pressure 138/74, heart rate in the 70s. Pulse ox 97% on 4 L. Repeat blood work reveals BUN 24 creatinine 1.59. Sodium 136 and potassium 3.7. Phosphorus 4.7, magnesium 2.0. Nephrology has started Ferrelcit. 05/16 Patient underwent HD yesterday and scheduled again today. Echocardiogram reveals a reduction and EF since last echocardiogram. EF is 35%. Blood p ressure 151/80, heart rate in the 60s and 70s, afebrile, pulse ox 95% on 2 L nasal cannula. Patient is currently on cefepime, daptomycin per infectious disease for febrile illness. Physical examination: Gen: This is a 57-year-old female resting in bed and appears to be in no acute distress VS: reviewed HEENT: Head is atraumatic, normocephalic. Pupils equal, round. Sclerae is anicteric. LUNGS: Diminished breath sounds. No intercostal retractions. HEART: Regular rate and rhythm. No murmur. ABDOMEN: Soft No tenderness. EXTREMITIES: No pedal edema. No calf tenderness. NEUROLOGICAL: Patient is awake, alert and oriented x3. Assessment: Acute febrile illness Acute hypoxic respiratory failure Acute on chronic systolic heart failure and diastolic heart failure Bilateral pleural effusions Cardiomyopathy Hypertension Hyperlipidemia Pulmonary hypertension COPD End-stage renal disease on hemodialysis Chronic anemia Thrombocytopenia Diabetes mellitus type 2 Tobacco use and dependence Severe coronary artery atherosclerosis on CT imaging Heel cellulitis Plan: Continue patient's home cardiac medications Continue patient on Imdur 15 mg daily Monitor I and O, daily weights, electrolytes and renal function Febrile illness workup per ID Patient will be scheduled for cardiac catheterization tomorrow. Nurse practitioner note has been reviewed, I agree with documented findings and plan of care. Patient was seen and examined. Objective - Vital Signs Vital signs: Vital Signs Temp 97.8 F 05/16/23 04:00 Pulse 64 05/16/23 09:16 Resp 18 05/16/23 04:00 BP 134/61 05/16/23 04:00 Pulse Ox 94 L 05/16/23 04:00 FiO2 Intake & Output 05/15/23 05/16/23 05/16/23 18:59 06:59 18:59 Intake Total 1044 600 0 Output Total 2100 Balance -1056 600 0 Weight 65.5 kg Intake: Oral 444 600 0 Hemodialysis 600 Output: Hemodialysis 2100 Other: # Voids 0 # Bowel Movements 1 - Labs CBC & Chem 7: 05/14/23 08:09 05/15/23 08:34 Labs: Abnormal Lab Results - Last 24 Hours (Table) 05/15/23 05/15/23 05/15/23 Range/Units 11:54 16:37 20:11 POC Glucose (mg/dL) 227 H 146 H 168 H (70-110) mg/dL 05/16/23 Range/Units 05:59 POC Glucose (mg/dL) 160 H (70-110) mg/dL Microbiology - Last 24 Hours (Table) 05/14/23 08:09 Blood Culture - Preliminary Blood 05/13/23 11:11 Blood Culture - Preliminary Blood 05/13/23 11:11 Blood Culture - Preliminary Blood
[2023-05-16 16:34] LABS: Glucose,Whole Blood 135 mg/dL (70-110)
[2023-05-16] MEDS: DARBEPOETIN ALFA 40 MCG/0.4 ML SYRINGE SQ SCH (17:31)
[2023-05-16 20:30] LABS: Glucose,Whole Blood 168 mg/dL (70-110)
--- NOTE | 2023-05-17 05:22 | PN ---
PROGRESS NOTE SUBJECTIVE: She is on heparin drip patient is less obtunded today. Has been ambulating from her bed to the chair. Bilateral upper lobe perihilar infiltrate on chest x-ray. Possibly doing a CAT scan of the chest to see what is going on her chest. She had pneumonia on a prior chest CAT scan with bilateral pleural effusions secondary to third-spacing of fluids and severe coronary atherosclerosis. Cardiology has seen her as well as Pulmonary. The patient appears to be improving with her breathing and her movement. OBJECTIVE: VITAL SIGNS: Her O2 is 93% on room air, blood pressure 131/68, pulse 60s to 70s, respiratory rate 16 to 18, temp 98.2. CARDIOVASCULAR: S1, S2. LUNGS: Decreased breath sounds x4. HEMATOLOGY: Negative Homans. PSYCH: Fair mood . ASSESSMENT: COPD, pulmonary hypertension, diabetes mellitus, uncontrolled, diabetic foot wound and cellulitis, positive for Pseudomonas, Enterococcus, IV Zosyn during hospital stay, pressure ulcer of the right heel, stage III, fever, CHF, possible CVA PROGNOSIS: Guarded. Follow up in next 24 to 48 hours MMODL / IJN: [id number] /
[2023-05-17] MEDS: ATORVASTATIN 80 MG TAB PO ONE (06:42)
[2023-05-17] MEDS: ASPIRIN 325 MG TAB PO ONE (06:42)
[2023-05-17 06:45] LABS: Glucose,Whole Blood 119 mg/dL (70-110)
[2023-05-17] MEDS ORDERED: HEPARIN SODIUM,PORCINE (1 ML) 2,500 UNIT in SODIUM CHLORIDE 0.9% 250 ML IRRIGATION PRN (07:00)
[2023-05-17] MEDS ORDERED: HEPARIN SODIUM,PORCINE 10,000 UNIT in SODIUM CHLORIDE 0.9% 1,000 ML IRRIGATION PRN (07:00)
[2023-05-17 07:49] LABS: Anisocytosis Slight; Basophils % (A) 1 %; Eosinophils % (A) 1 %; HCT 29.2 % (34.0-46.0); HGB 8.8 gm/dL (11.4-16.0); Hypochromasia Marked; Lymphocytes # (A) 0.6 k/uL (1.0-4.8); Lymphocytes % (A) 16 %; MCH 25.3 pg (25.0-35.0); MCV 84.4 fL (80.0-100.0); Mean Platelet Volume 9.2; Monocytes # (A) 0.3 k/uL (0-1.0); Monocytes % (A) 10 %; Neutrophils # (A) 2.5 k/uL (1.3-7.7); Neutrophils % (A) 70 %; Platelet Count 159 k/uL (150-450); RBC 3.47 m/uL (3.80-5.40); RDW 16.4 % (11.5-15.5); WBC 3.6 k/uL (3.8-10.6)
[2023-05-17 07:52] LABS: ALT 22 U/L (4-34); AST 32 U/L (14-36); African American GFR (CKD) 35 (>60 ml/min/1.73 sqM); Albumin 3.1 g/dL (3.5-5.0); Alkaline Phosphatase 202 U/L (38-126); Anion Gap 8 mmol/L; Blood Urea Nitrogen 20 mg/dL (7-17); Calcium 8.1 mg/dL (8.4-10.2); Carbon Dioxide 25 mmol/L (22-30); Chloride 102 mmol/L (98-107); Glucose 120 mg/dL (74-99); Non-African American GFR(CKD) 31 (>60 ml/min/1.73 sqM); Potassium 4.2 mmol/L (3.5-5.1); Sodium 135 mmol/L (137-145); Total Bilirubin 0.5 mg/dL (0.2-1.3); Total Protein 6.8 g/dL (6.3-8.2)
--- NOTE | 2023-05-17 10:36 | P.PN ---
Subjective Progress Note Date: 05/17/23 Principal diagnosis: Reason for follow-up is fever Patient is a 57-year-old female with a past medical history significant for diabetes mellitus, hypertension right heel diabetic foot wound and cellulitis with recent admission to the hospital local culture positive for Pseudomonas Enterococcus and the patient received 3-week course of IV Zosyn during the hospital stay the patient also developed renal failure requiring dialysis, presenting back to the hospital with worsening shortness of breath and also have a fever. Chest x-ray was suggestive of CHF, CT of the chest small bilateral effusion and cardiomegaly lymphadenopathy scattered throughout. On today's evaluation that is 05/17/2023, the patient did have a low-grade fever of 100.8 F around 4 AM, the patient is breathing comfortably on room air, the patient denies any chest pain, patient did have occasional dry cough patient denies having any nausea no vomiting did not have any abdominal pain no diarrhe a, denies pain to the right foot wound Patient did have white count of 3.6, creatinine is 1.80 , cultures are pending, procalcitonin 0.10 Objective - Vital Signs Vital signs: Vital Signs Temp 97.8 F 05/17/23 08:11 Pulse 72 05/17/23 08:11 Resp 18 05/17/23 08:11 BP 158/82 05/17/23 08:11 Pulse Ox 91 L 05/17/23 08:11 FiO2 Intake & Output 05/16/23 05/17/23 05/17/23 18:59 06:59 18:59 Intake Total 630 Output Total 3000 Balance -2370 Intake: Oral 230 Hemodialysis 400 Output: Hemodialysis 3000 Other: Voiding Method Bedside Commode # Voids 1 # Bowel Movements 1 - Exam GENERAL DESCRIPTION: Middle-aged female lying in bed in no distress RESPIRATORY SYSTEM: Unlabored breathing , decreased breath sounds at bases HEART: S1 S2 regular rate and rhythm , ABDOMEN: Soft , no tenderness EXTREMITIES: Right heel wound is currently dressed - Labs CBC & Chem 7: 05/17/23 06:50 05/17/23 06:50 Labs: Abnormal Lab Results - Last 24 Hours (Table) 05/16/23 05/16/23 05/17/23 Range/Units 16:32 20:28 06:43 WBC (3.8-10.6) k/uL RBC (3.80-5.40) m/uL Hgb (11.4-16.0) gm/dL Hct (34.0-46.0) % MCHC (31.0-37.0) g/dL RDW (11.5-15.5) % Lymphocytes # (1.0-4.8) k/uL Sodium (137-145) mmol/L BUN (7-17) mg/dL Creatinine (0.52-1.04) mg/dL Glucose (74-99) mg/dL POC Glucose (mg/dL) 135 H 168 H 119 H (70-110) mg/dL Calcium (8.4-10.2) mg/dL Alkaline Phosphatase (38-126) U/L Albumin (3.5-5.0) g/dL 05/17/23 05/17/23 Range/Units 06:50 06:50 WBC 3.6 L (3.8-10.6) k/uL RBC 3.47 L (3.80-5.40) m/uL Hgb 8.8 L (11.4-16.0) gm/dL Hct 29.2 L (34.0-46.0) % MCHC 30.0 L (31.0-37.0) g/dL RDW 16.4 H (11.5-15.5) % Lymphocytes # 0.6 L (1.0-4.8) k/uL Sodium 135 L (137-145) mmol/L BUN 20 H (7-17) mg/dL Creatinine 1.80 H (0.52-1.04) mg/dL Glucose 120 H (74-99) mg/dL POC Glucose (mg/dL) (70-110) mg/dL Calcium 8.1 L (8.4-10.2) mg/dL Alkaline Phosphatase 202 H (38-126) U/L Albumin 3.1 L (3.5-5.0) g/dL Microbiology - Last 24 Hours (Table) 05/15/23 11:11 Blood Culture - Preliminary Blood 05/14/23 08:09 Blood Culture - Preliminary Blood 05/13/23 11:11 Blood Culture - Preliminary Blood 05/13/23 11:11 Blood Culture - Preliminary Blood Assessment and Plan (1) Pressure ulcer of right heel, stage 3 Current Visit: No Status: Acute Code(s): L89.613 - PRESSURE ULCER OF RIGHT HEEL, STAGE 3 SNOMED Code(s): 17751703377259 (2) Fever Current Visit: Yes Status: Acute Code(s): R50.9 - FEVER, UNSPECIFIED SNOMED Code(s): 462095906 Plan: 1-patient presented to hospital with fever also complaining of increasing shortness of breath and cough however the chest x-ray is mostly suggestive of CHF rather than pneumonia 2-patient did have right heel wound which seem to be healing well with no evidence of any cellulitis 3-local wound care to the right heel with Aquacel silver dressing change every 48 hour 4-patient did have a low-grade 100.8 this morning we will monitor closely for now continue the patient on daptomycin cefepime to continue while waiting for the culture to finalize Dictation was produced using [employer] dictation software. please excuse any grammatical, word or spelling errors. Time with Patient: Less than 30
[2023-05-17 11:22] LABS: Glucose,Whole Blood 137 mg/dL (70-110)
--- NOTE | 2023-05-17 11:40 | P.PN ---
Subjective Patient is seen in follow-up for acute kidney injury, hemodialysis dependent. Tolerated 3 L ultrafiltration yesterday. Dyspnea improved. On room air. Hemodynamically stable. Vital signs are stable. General: No acute distress. HEENT: Head exam is unremarkable. On nasal cannula. LUNGS: No audible rhonchi or wheezes. HEART: Rate and Rhythm are regular. ABDOMEN: Nontender. EXTREMITITES: Trace edema. Objective - Vital Signs Vital signs: Vital Signs Temp 97.8 F 05/17/23 08:11 Pulse 72 05/17/23 08:11 Resp 18 05/17/23 08:11 BP 158/82 05/17/23 08:11 Pulse Ox 91 L 05/17/23 08:11 FiO2 Intake & Output 05/16/23 05/17/23 05/17/23 18:59 06:59 18:59 Intake Total 630 Output Total 3000 Balance -2370 Intake: Oral 230 Hemodialysis 400 Output: Hemodialysis 3000 Other: Voiding Method Bedside Commode # Voids 1 # Bowel Movements 1 - Labs CBC & Chem 7: 05/17/23 06:50 05/17/23 06:50 Labs: Abnormal Lab Results - Last 24 Hours (Table) 05/16/23 05/16/23 05/17/23 Range/Units 16:32 20:28 06:43 WBC (3.8-10.6) k/uL RBC (3.80-5.40) m/uL Hgb (11.4-16.0) gm/dL Hct (34.0-46.0) % MCHC (31.0-37.0) g/dL RDW (11.5-15.5) % Lymphocytes # (1.0-4.8) k/uL Sodium (137-145) mmol/L BUN (7-17) mg/dL Creatinine (0.52-1.04) mg/dL Glucose (74-99) mg/dL POC Glucose (mg/dL) 135 H 168 H 119 H (70-110) mg/dL Calcium (8.4-10.2) mg/dL Alkaline Phosphatase (38-126) U/L Albumin (3.5-5.0) g/dL 05/17/23 05/17/23 05/17/23 Range/Units 06:50 06:50 11:20 WBC 3.6 L (3.8-10.6) k/uL RBC 3.47 L (3.80-5.40) m/uL Hgb 8.8 L (11.4-16.0) gm/dL Hct 29.2 L (34.0-46.0) % MCHC 30.0 L (31.0-37.0) g/dL RDW 16.4 H (11.5-15.5) % Lymphocytes # 0.6 L (1.0-4.8) k/uL Sodium 135 L (137-145) mmol/L BUN 20 H (7-17) mg/dL Creatinine 1.80 H (0.52-1.04) mg/dL Glucose 120 H (74-99) mg/dL POC Glucose (mg/dL) 137 H (70-110) mg/dL Calcium 8.1 L (8.4-10.2) mg/dL Alkaline Phosphatase 202 H (38-126) U/L Albumin 3.1 L (3.5-5.0) g/dL Microbiology - Last 24 Hours (Table) 05/15/23 11:11 Blood Culture - Preliminary Blood 05/14/23 08:09 Blood Culture - Preliminary Blood 05/13/23 11:11 Blood Culture - Preliminary Blood 05/13/23 11:11 Blood Culture - Preliminary Blood Assessment and Plan Plan: Assessment: 1. Acute kidney injury secondary to ATN secondary to cardiorenal syndrome. Started on hemodialysis 05/07/2023 due to severe volume overload and low urine output. Has permacath. 2. Acute on chronic systolic CHF with ejection fraction of 40-45% with severe pulmonary hypertension. 3. Anemia. Iron deficiency noted. IV iron held due to active infection. On Aranesp. 4. Volume overload. Improved with ultrafiltration. 5. Diabetes mellitus. 6. Right heel cellulitis on antibiotics. Plan: Hemodialysis tomorrow. Maintain torsemide. Follow-up cultures. Monitor for renal recovery outpatient. Phosphorus level 4.7 dated 05/15/2023.
[2023-05-17 11:51] LABS: C Reactive Protein 3.8 mg/dL (<1.0)
--- NOTE | 2023-05-17 14:07 | P.PN ---
Subjective Progress Note Date: 05/17/23 Reason for Consult (text): Pulmonary edema History of present illness: History of present illness: This is a 57-year-old female with past medical history of diabetes, hypertension, hyperlipidemia, chronic systolic and diastolic heart failure, cardiomyopathy undetermined type, pulmonary hypertension, COPD, tobacco use and dependence, chronic kidney disease. We have been asked to evaluate the patient for pulmonary edema. Patient had a recent hospitalization March 2001. During that hospitalization, patient was started on hemodialysis. Patient presented to the hospital with the vertebral 4-1.2. She states she has not been feeling well for the past 1-1/2 days with shortness of breath and chest heaviness. She denies any previous cardiac history and no stents done on her. She complains of a cough. She is not requiring home oxygen but this morning had a pulse ox of 86% on room air and was started on oxygen. Patient has been started on IV antibiotics. Dialysis as scheduled on Saturday. She states her last dialysis was on Saturday. EKG sinus rhythm with no acute changes. Chest x-ray: Findings of CHF. CT of the chest revealed small bilateral pleural effusions with anasarca and cardiomegaly. Correlate for congestive heart failure. Right central venous catheter with tip in the superior vena cava. Lymphadenopathy scattered throughout. Severe coronary artery atherosclerosis. WBC 4, hemoglobin 8.7, platelet count 143. Sodium 134, potassium 4.8, BUN 26 and creatinine 1.7. Blood sugar 174. Alkaline phosphatase 171 and otherwise liver function tests are normal. C-reactive protein 4.4. ProBNP 26,300. Troponin negative 1. Influenza A, influenza B, RNC, Covid 19 not detected Home cardiac medications: Atorvastatin 40 mg daily, Coreg 25 mg twice daily, Farxiga 5 milligrams daily, Zetia 10 mg daily, Lasix 60 mg twice daily, hydralazine 25 mg 3 times daily, metolazone 5 mg daily. Echocardiogram performed on 04/17/2023 revealed moderately impaired left ventricular systolic function with global hypokinesis, EF 40-45%. Moderate mitral and tricuspid regurgitation. Severe pulmonary hypertension. 05/15 Patient is seen today on the CSD unit. SHe is currently undergoing HD and to remove 2 L today. Patient is currently on IV Lasix 80 mg every 12 hours. Yesterday we discontinued metolazone and started patient on Imdur. Blood pressure 138/74, heart rate in the 70s. Pulse ox 97% on 4 L. Repeat blood work reveals BUN 24 creatinine 1.59. Sodium 136 and potassium 3.7. Phosphorus 4.7, magnesium 2.0. Nephrology has started Ferrelcit. 05/16 Patient underwent HD yesterday and scheduled again today. Echocardiogram reveals a reduction and EF since last echocardiogram. EF is 35%. Blood p ressure 151/80, heart rate in the 60s and 70s, afebrile, pulse ox 95% on 2 L nasal cannula. Patient is currently on cefepime, daptomycin per infectious disease for febrile illness. 05/17 Patient was tentatively planned for cardiac catheterization but due to septic workup in progress, this will be pul phone and can be performed as an outpatient. Patient is not currently on SANDIP inhibitor, ARB or Aldactone due to kidney function in hopes that it will recover. Blood pressure 141/65, heart rate in the 60s and 70s. WBC 3.6, hemoglobin 8.8. Sodium 135, potassium 4.2, BUN 20 creatinine 1.8. Physical examination: Gen: This is a 57-year-old female resting in bed and appears to be in no acute distress VS: reviewed HEENT: Head is atraumatic, normocephalic. Pupils equal, round. Sclerae is anicte dylan. LUNGS: Diminished breath sounds. No intercostal retractions. HEART: Regular rate and rhythm. No murmur. ABDOMEN: Soft No tenderness. EXTREMITIES: No pedal edema. No calf tenderness. NEUROLOGICAL: Patient is awake, alert and oriented x3. Assessment: Acute febrile illness Acute hypoxic respiratory failure Acute on chronic systolic heart failure and diastolic heart failure Bilateral pleural effusions Cardiomyopathy Hypertension Hyperlipidemia Pulmonary hypertension COPD End-stage renal disease on hemodialysis Chronic anemia Thrombocytopenia Diabetes mellitus type 2 Tobacco use and dependence Severe coronary artery atherosclerosis on CT imaging Heel cellulitis Plan: Continue patient's home cardiac medications Continue patient on Imdur 15 mg daily IV diuretics per nephrology Monitor I and O, daily weights, electrolytes and renal function Febrile illness workup per ID Patient will follow-up in the office with Dr. LELA Blanco and be scheduled for outpatient cardiac catheterization. Nurse practitioner note has been reviewed, I agree with documented findings and plan of care. Patient was seen and examined. Objective - Vital Signs Vital signs: Vital Signs Temp 97.8 F 05/17/23 08:11 Pulse 72 05/17/23 08:11 Resp 18 05/17/23 08:11 BP 158/82 05/17/23 08:11 Pulse Ox 91 L 05/17/23 08:11 FiO2 Intake & Output 05/16/23 05/17/23 05/17/23 18:59 06:59 18:59 Intake Total 630 Output Total 3000 Balance -2370 Intake: Oral 230 Hemodialysis 400 Output: Hemodialysis 3000 Other: Voiding Method Bedside Commode # Voids 1 # Bowel Movements 1 - Labs CBC & Chem 7: 05/17/23 06:50 05/17/23 06:50 Labs: Abnormal Lab Results - Last 24 Hours (Table) 05/16/23 05/16/23 05/17/23 Range/Units 16:32 20:28 06:43 WBC (3.8-10.6) k/uL RBC (3.80-5.40) m/uL Hgb (11.4-16.0) gm/dL Hct (34.0-46.0) % MCHC (31.0-37.0) g/dL RDW (11.5-15.5) % Lymphocytes # (1.0-4.8) k/uL Sodium (137-145) mmol/L BUN (7-17) mg/dL Creatinine (0.52-1.04) mg/dL Glucose (74-99) mg/dL POC Glucose (mg/dL) 135 H 168 H 119 H (70-110) mg/dL Calcium (8.4-10.2) mg/dL Alkaline Phosphatase (38-126) U/L Albumin (3.5-5.0) g/dL 05/17/23 05/17/23 Range/Units 06:50 06:50 WBC 3.6 L (3.8-10.6) k/uL RBC 3.47 L (3.80-5.40) m/uL Hgb 8.8 L (11.4-16.0) gm/dL Hct 29.2 L (34.0-46.0) % MCHC 30.0 L (31.0-37.0) g/dL RDW 16.4 H (11.5-15.5) % Lymphocytes # 0.6 L (1.0-4.8) k/uL Sodium 135 L (137-145) mmol/L BUN 20 H (7-17) mg/dL Creatinine 1.80 H (0.52-1.04) mg/dL Glucose 120 H (74-99) mg/dL POC Glucose (mg/dL) (70-110) mg/dL Calcium 8.1 L (8.4-10.2) mg/dL Alkaline Phosphatase 202 H (38-126) U/L Albumin 3.1 L (3.5-5.0) g/dL Microbiology - Last 24 Hours (Table) 05/15/23 11:11 Blood Culture - Preliminary Blood 05/14/23 08:09 Blood Culture - Preliminary Blood 05/13/23 11:11 Blood Culture - Preliminary Blood 05/13/23 11:11 Blood Culture - Preliminary Blood
--- NOTE | 2023-05-17 14:19 | P.PN ---
Subjective Progress Note Date: 05/17/23 Patient is a 57-year-old white female was being seen for shortness of breath. The patient is known to have multiple medical problems and comorbidities. The patient's is quite debilitated despite her young age. She had a recent prolonged hospitalization for CHF and right foot wound, which was treated inpatient with antibiotics. Subsequently, developing acute renal failure requiring hemodialysis catheter placement on May 10. She was discharged on May 11. Other past medical history includes CHF, diabetes mellitus, hypertension, hyperlipidemia COPD, and tobacco dependence. Patient presented the hospital yesterday morning complaining of progressively worsening shortness of breath since her recent hospital discharge 2 days prior. She does have right IJ hemodialysis catheter, and was scheduled to start a /SAT HD schedule today. She still produces urine. She is currently lying in bed, on 3 L/m nasal cannula, in no acute distress. She denies any chest pain, heart palpitations, syncope, lower extremity swelling. Admits chronic cough, mostly nonproductive, with occasional clear sputum production. Denies any fevers at home, however, was noted to have mild fever of 100.1F on arrival. Chest x-ray showed a stable heart with interstitial changes. No focal infiltrates. Follow-up Chest CT demonstrates borderline cardiomegaly and small bilateral effusions. Partially calcified mediastinal and hilar lymph nodes. There is scattered lymphadenopathy throughout which could be secondary to third spacing of fluid. There is also severe coronary atherosclerosis. Upon further questioning, the patient has no history of pulmonary infection, no previous history of histoplasma infection. No previous history of sarcoidosis. No previous history of radiation therapy or chest malignancy. No cell lymphoma. CBC on arrival: WBC count 9.1, hemoglobin 10.5, hematocrit 34.7, platelets 190. BMP arrival: Sodium 137, potassium 4.6, chloride 100, serum bicarbonate 25, BUN 23, creatinine 1.64, glucose 436. Lactic acid level I. Urinalysis not concerning for UTI. Negative for inf luenza, RSV, COVID-19. Vital signs are stable. This morning, the patient is undergoing hemodialysis with a goal of ultrafiltration of around 2.4 L. She is, comfortable. He is already on 4 L of oxygen by nasal cannula. She is afebrile for now. Cultures are been sent and results are still pending for now. The patient on a combination of Rocephin and Zithromax. On today's evaluation of 05/05/2023, the patient is supposed to have another session of hemodialysis. The patient was admitted on oxygen at 2 L per minute nasal cannula. I was told that with exertion and room air oxygen, the patient desaturates still. We'll going to reevaluate her condition following her hemodialysis ultrafiltration. I'm suspecting that the patient's oxygen will improve following hemodialysis and optimization of the volume status. Note that she had bilateral pleural effusions. As for the mediastinal lymphadenopathy, this can be worked up on outpatient basis. She is afebrile. Hemodynamically stable. No significant elevation of the blood pressure. The enzymes at 24 with a creatinine of 1.59 and the potassium levels at 3.7. Limited echocardiogram shows impaired LV function with an ejection fraction of 35-40% and the patient had evidence of severe pulmonary hypertension. There was also enlargement of the right ventricle. It is possible that the patient was chronic hypoxic as the patient has significant amount of pulmonary hypertension on echocardiogram. On 05/06/2023, the patient is doing well. On room air pulse ox was 94%. A follow-up visit will be done today. Meanwhile, the patient is undergoing another session of hemodialysis with another 2 L of ultrafiltration. She is resting comfortably in bed. Blood pressure stable. No cough or sputum production. No chest pain. While on dialysis, the patient was placed on 2 L of oxygen by nasal cannula. Denies having any significant respiratory distress. On 05/17/2023, seeing the patient for a follow-up. Patient is ventilating. The patient is currently on room air oxygen. Chest x-ray shows some limited infiltration the upper lobes bilaterally. Nevertheless, the patient has responded nicely to daily dialysis and the patient's has optimize her volume status and remains on a combination of cefepime and daptomycin. She is working with the help of physical therapy and she is ventilating in the hallways. Blood work from today shows a white cell count of 3.6, hemoglobin of 8.8, platelet count of 159, BUN is 20 with a creatinine 1.8 and a sodium levels of 135. Objective - Vital Signs Vital signs: Vital Signs Temp 97.8 F 05/17/23 08:11 Pulse 72 05/17/23 08:11 Resp 18 05/17/23 08:11 BP 158/82 05/17/23 08:11 Pulse Ox 91 L 05/17/23 08:11 FiO2 Intake & Output 05/16/23 05/17/23 05/17/23 18:59 06:59 18:59 Intake Total 630 Output Total 3000 Balance -2370 Intake: Oral 230 Hemodialysis 400 Output: Hemodialysis 3000 Other: Voiding Method Bedside Commode # Voids 1 # Bowel Movements 1 - Exam NGENERAL EXAM: Alert, 57-year-old white female, comfortable in no apparent distress. The patient is currently on room air oxygen HEAD: Normocephalic and atraumatic EYES: Normal reaction of pupils, equal size. NOSE: Clear with pink turbinates. THROAT: No erythema or exudates. NECK: No masses, no JVD. CHEST: No chest wall deformity. LUNGS: Equal air entry with faint end expiratory wheezes. No crackles, rhonchi, or focal dullness. No conversational dyspnea or accessory muscle use. The breath sounds are quite diminished in the lung bases bilaterally. CVS: S1 and S2 normal with grade III systolic murmur, regular rhythm. No other extra heart sounds ABDOMEN: No hepatosplenomegaly, active bowel sounds, no guarding or rigidity. SPINE: No scoliosis or deformity SKIN: No rashes. CENTRAL NERVOUS SYSTEM: No focal deficits, tone is normal in all 4 extremities. EXTREMITIES: There is no peripheral edema, clubbing, or cyanosis. Peripheral pulses are diminished Right dorsal foot wound/laceration, healing no evidence of cellulitis. Right heel pressure ulcer around 2 inches wide and the base is clear and there is no active drainage at this point in time. Pulses in lower extremities are quite diminished. - Labs CBC & Chem 7: 05/17/23 06:50 05/17/23 06:50 Labs: Abnormal Lab Results - Last 24 Hours (Table) 05/16/23 05/16/23 05/17/23 Range/Units 16:32 20:28 06:43 WBC (3.8-10.6) k/uL RBC (3.80-5.40) m/uL Hgb (11.4-16.0) gm/dL Hct (34.0-46.0) % MCHC (31.0-37.0) g/dL RDW (11.5-15.5) % Lymphocytes # (1.0-4.8) k/uL Sodium (137-145) mmol/L BUN (7-17) mg/dL Creatinine (0.52-1.04) mg/dL Glucose (74-99) mg/dL POC Glucose (mg/dL) 135 H 168 H 119 H (70-110) mg/dL Calcium (8.4-10.2) mg/dL Alkaline Phosphatase (38-126) U/L Albumin (3.5-5.0) g/dL 05/17/23 05/17/23 Range/Units 06:50 06:50 WBC 3.6 L (3.8-10.6) k/uL RBC 3.47 L (3.80-5.40) m/uL Hgb 8.8 L (11.4-16.0) gm/dL Hct 29.2 L (34.0-46.0) % MCHC 30.0 L (31.0-37.0) g/dL RDW 16.4 H (11.5-15.5) % Lymphocytes # 0.6 L (1.0-4.8) k/uL Sodium 135 L (137-145) mmol/L BUN 20 H (7-17) mg/dL Creatinine 1.80 H (0.52-1.04) mg/dL Glucose 120 H (74-99) mg/dL POC Glucose (mg/dL) (70-110) mg/dL Calcium 8.1 L (8.4-10.2) mg/dL Alkaline Phosphatase 202 H (38-126) U/L Albumin 3.1 L (3.5-5.0) g/dL Microbiology - Last 24 Hours (Table) 05/15/23 11:11 Blood Culture - Preliminary Blood 05/14/23 08:09 Blood Culture - Preliminary Blood 05/13/23 11:11 Blood Culture - Preliminary Blood 05/13/23 11:11 Blood Culture - Preliminary Blood Assessment and Plan Plan: Acute hypoxic respiratory failure, likely on the basis of CHF/fluid overload and the patient has developed bilateral pleural effusions, currently on room air oxygen, monocytes improved. Continues to have some limited infiltration of the upper lobes bilaterally. CHF with mild impairment of LV function with an ejection fraction of 40-45% and moderate MR and severe pulmonary hypertension based on echocardiogram Mediastinal lymphadenopathy with significant mediastinal lymph node calcification. Rule out an old sarcoidosis. Rule out previous adenomatous infection of the lung including Histoplasma. Lymphoma is felt to be less likely. No previous images for comparison. The chronicity of this problem is not well-established. Bilateral pleural effusions likely on the basis of underlying CHF and volume overload. Acute febrile illness, under investigation for now. The patient is currently on Rocephin. Cultures are still pending. Pneumonia is doubtful. End-stage renal disease currently on hemodialysis. The patient is undergoing c hemo last and regular basis. The urine output is diminished, the patient continues to have some edema lower extremities bilaterally. The patient is scheduled to undergo hemodialysis 3 times a week Tuesdays and Saturdays. She was started on hemodialysis in 05/07/2023 and she has some vol ume overload and low urine output. Chronic right heel wound, no evidence of cellulitis , this is a diabetic wound that has no signs of any active infection. Chronic anemia, anemia of chronic disease Diabetes mellitus type 2 Hypertension Hyperlipidemia Chronic tobacco dependence Plan Clinically improving. Patient is currently on room air oxygen Patient is currently afebrile. Nevertheless she has a pressure ulcer on her right heel stage III and the patient is currently on a combination of cefepime and daptomycin Continue hemodialysis per nephrology The mediastinal lymphadenopathy which is partially calcified is probably chronic. We can contemplate and endobronchial ultrasound the later stage to establish a tissue diagnosis. Suspect all granulomatous infection versus sarcoidosis. Malignancy is felt to be less likely. Wound care We'll continue to follow
[2023-05-17] MEDS: SODIUM FERRIC GLUCONAT-SUCROSE 125 MG in SODIUM CHLORIDE 0.9% 100 ML IVPB SCH (16:11)
[2023-05-17 16:46] LABS: Glucose,Whole Blood 257 mg/dL (70-110)
[2023-05-17] MEDS: CEFEPIME 1 GM in SODIUM CHLORIDE 0.9% 50 ML IVPB SCH (20:14)
[2023-05-17] MEDS: ZINC OXIDE PASTE (Z-GUARD) 1 APPLIC TOPICAL PRN (20:14)
[2023-05-17 20:29] LABS: Glucose,Whole Blood 279 mg/dL (70-110)
--- NOTE | 2023-05-18 01:43 | PN ---
PROGRESS NOTE SUBJECTIVE: 57-year-old white female remains on daptomycin and cefepime for pneumonia. OBJECTIVE: VITAL SIGNS: Temperature is 98.1, O2 99 on room air, blood pressure 141/65, pulse 69- 75. CARDIOVASCULAR: S1, S2. LUNGS: Scattered wheeze and rhonchi. HEMATOLOGY: Negative Homans. PSYCH: Fair mood and affect. GI: Soft, nontender. Blood cultures are pending. ASSESSMENT: 1. Insulin-dependent diabetes mellitus. 2. COPD. 3. Pulmonary hypertension. 4. Acute on chronic anemia and leukopenia. 5. Acute on chronic renal disease. 6. Anemia . 7. Diabetes mellitus. 8. Right heel cellulitis. PLAN: Hemodialysis tomorrow. Maintain torsemide. Follow up cultures. Phosphorus 4.7. Prognosis guarded. MMODL / IJN: [id number] /
[2023-05-18 06:04] LABS: Glucose,Whole Blood 355 mg/dL (70-110)
[2023-05-18 09:03] LABS: Anisocytosis Slight; Basophils % (A) 0 %; Eosinophils % (A) 0 %; HCT 29.2 % (34.0-46.0); HGB 8.7 gm/dL (11.4-16.0); Hypochromasia Marked; Lymphocytes # (A) 0.6 k/uL (1.0-4.8); Lymphocytes % (A) 16 %; MCH 25.5 pg (25.0-35.0); MCHC 29.9 g/dL (31.0-37.0); MCV 85.1 fL (80.0-100.0); Monocytes # (A) 0.3 k/uL (0-1.0); Monocytes % (A) 8 %; Neutrophils % (A) 73 %; Platelet Count 179 k/uL (150-450); RBC 3.43 m/uL (3.80-5.40); RDW 16.5 % (11.5-15.5); WBC 4.1 k/uL (3.8-10.6)
[2023-05-18 09:17] LABS: ALT 23 U/L (4-34); AST 31 U/L (14-36); African American GFR (CKD) 28 (>60 ml/min/1.73 sqM); Alkaline Phosphatase 197 U/L (38-126); Anion Gap 8 mmol/L; Blood Urea Nitrogen 32 mg/dL (7-17); Carbon Dioxide 22 mmol/L (22-30); Chloride 102 mmol/L (98-107); Glucose 269 mg/dL (74-99); Non-African American GFR(CKD) 24 (>60 ml/min/1.73 sqM); Potassium 4.5 mmol/L (3.5-5.1); Sodium 132 mmol/L (137-145); Total Bilirubin 0.5 mg/dL (0.2-1.3); Total Protein 6.5 g/dL (6.3-8.2)
--- NOTE | 2023-05-18 10:54 | P.PN ---
Subjective Patient is seen in follow-up for acute kidney injury, hemodialysis dependent. Tolerating dialysis well. Dyspnea improved. On 2 L nasal cannula. Hemodynamically stable. Vital signs are stable. General: No acute distress. HEENT: Head exam is unremarkable. On nasal cannula. LUNGS: No audible rhonchi or wheezes. HEART: Rate and Rhythm are regular. ABDOMEN: Nontender. EXTREMITITES: Trace edema. Objective - Vital Signs Vital signs: Vital Signs Temp 98.4 F 05/18/23 08:00 Pulse 72 05/18/23 08:15 Resp 18 05/18/23 08:15 BP 154/84 05/18/23 08:00 Pulse Ox 98 05/18/23 08:00 FiO2 Intake & Output 05/17/23 05/18/23 05/18/23 18:59 06:59 18:59 Intake Total 118 240 222 Balance 118 240 222 Weight 64.5 kg Intake: Oral 118 240 222 Other: Voiding Method Bedside Commode Bedside Commode Bedside Commode Diaper Diaper # Bowel Movements 1 1 - Labs CBC & Chem 7: 05/18/23 08:22 05/18/23 08:22 Labs: Abnormal Lab Results - Last 24 Hours (Table) 05/17/23 05/17/23 05/17/23 Range/Units 06:50 06:50 11:20 RBC (3.80-5.40) m/uL Hgb (11.4-16.0) gm/dL Hct (34.0-46.0) % MCHC (31.0-37.0) g/dL RDW (11.5-15.5) % Lymphocytes # (1.0-4.8) k/uL Sodium (137-145) mmol/L BUN (7-17) mg/dL Creatinine (0.52-1.04) mg/dL Glucose (74-99) mg/dL POC Glucose (mg/dL) 137 H (70-110) mg/dL Calcium (8.4-10.2) mg/dL Alkaline Phosphatase (38-126) U/L C-Reactive Protein 3.8 H (<1.0) mg/dL Albumin (3.5-5.0) g/dL Procalcitonin 1.16 H (0.02-0.09) ng/mL 05/17/23 05/17/23 05/18/23 Range/Units 16:45 20:28 05:59 RBC (3.80-5.40) m/uL Hgb (11.4-16.0) gm/dL Hct (34.0-46.0) % MCHC (31.0-37.0) g/dL RDW (11.5-15.5) % Lymphocytes # (1.0-4.8) k/uL Sodium (137-145) mmol/L BUN (7-17) mg/dL Creatinine (0.52-1.04) mg/dL Glucose (74-99) mg/dL POC Glucose (mg/dL) 257 H 279 H 355 H (70-110) mg/dL Calcium (8.4-10.2) mg/dL Alkaline Phosphatase (38-126) U/L C-Reactive Protein (<1.0) mg/dL Albumin (3.5-5.0) g/dL Procalcitonin (0.02-0.09) ng/mL 05/18/23 05/18/23 Range/Units 08:22 08:22 RBC 3.43 L (3.80-5.40) m/uL Hgb 8.7 L (11.4-16.0) gm/dL Hct 29.2 L (34.0-46.0) % MCHC 29.9 L (31.0-37.0) g/dL RDW 16.5 H (11.5-15.5) % Lymphocytes # 0.6 L (1.0-4.8) k/uL Sodium 132 L (137-145) mmol/L BUN 32 H (7-17) mg/dL Creatinine 2.19 H (0.52-1.04) mg/dL Glucose 269 H (74-99) mg/dL POC Glucose (mg/dL) (70-110) mg/dL Calcium 8.0 L (8.4-10.2) mg/dL Alkaline Phosphatase 197 H (38-126) U/L C-Reactive Protein (<1.0) mg/dL Albumin 3.0 L (3.5-5.0) g/dL Procalcitonin (0.02-0.09) ng/mL Microbiology - Last 24 Hours (Table) 05/15/23 11:11 Blood Culture - Preliminary Blood 05/14/23 08:09 Blood Culture - Preliminary Blood Assessment and Plan Plan: Assessment: 1. Acute kidney injury secondary to ATN secondary to cardiorenal syndrome. Started on hemodialysis 05/07/2023 due to severe volume overload and low urine output. Has permacath. 2. Acute on chronic systolic CHF with ejection fraction of 40-45% with severe pulmonary hypertension. 3. Anemia. Iron deficiency noted. Receiving IV iron. On Aranesp. 4. Volume overload. Improved with ultrafiltration. 5. Diabetes mellitus. 6. Right heel cellulitis on antibiotics. Plan: Currently seen while undergoing hemodialysis. Challenge ultrafiltration. Maintain torsemide. Add 1500 mL fluid restriction. Follow-up cultures. Monitor for renal recovery outpatient. Phosphorus level 4.7 dated 05/15/2023.
[2023-05-18 11:39] LABS: Glucose,Whole Blood 151 mg/dL (70-110)
--- NOTE | 2023-05-18 12:22 | P.PN ---
Subjective Progress Note Date: 05/18/23 Patient is a 57-year-old white female was being seen for shortness of breath. The patient is known to have multiple medical problems and comorbidities. The patient's is quite debilitated despite her young age. She had a recent prolonged hospitalization for CHF and right foot wound, which was treated inpatient with antibiotics. Subsequently, developing acute renal failure requiring hemodialysis catheter placement on May 10. She was discharged on May 11. Other past medical history includes CHF, diabetes mellitus, hypertension, hyperlipidemia COPD, and tobacco dependence. Patient presented the hospital yesterday morning complaining of progressively worsening shortness of breath since her recent hospital discharge 2 days prior. She does have right IJ hemodialysis catheter, and was scheduled to start a /SAT HD schedule today. She still produces urine. She is currently lying in bed, on 3 L/m nasal cannula, in no acute distress. She denies any chest pain, heart palpitations, syncope, lower extremity swelling. Admits chronic cough, mostly nonproductive, with occasional clear sputum production. Denies any fevers at home, however, was noted to have mild fever of 100.1F on arrival. Chest x-ray showed a stable heart with interstitial changes. No focal infiltrates. Follow-up Chest CT demonstrates borderline cardiomegaly and small bilateral effusions. Partially calcified mediastinal and hilar lymph nodes. There is scattered lymphadenopathy throughout which could be secondary to third spacing of fluid. There is also severe coronary atherosclerosis. Upon further questioning, the patient has no history of pulmonary infection, no previous history of histoplasma infection. No previous history of sarcoidosis. No previous history of radiation therapy or chest malignancy. No cell lymphoma. CBC on arrival: WBC count 9.1, hemoglobin 10.5, hematocrit 34.7, platelets 190. BMP arrival: Sodium 137, potassium 4.6, chloride 100, serum bicarbonate 25, BUN 23, creatinine 1.64, glucose 436. Lactic acid level I. Urinalysis not concerning for UTI. Negative for inf luenza, RSV, COVID-19. Vital signs are stable. This morning, the patient is undergoing hemodialysis with a goal of ultrafiltration of around 2.4 L. She is, comfortable. He is already on 4 L of oxygen by nasal cannula. She is afebrile for now. Cultures are been sent and results are still pending for now. The patient on a combination of Rocephin and Zithromax. On today's evaluation of 05/05/2023, the patient is supposed to have another session of hemodialysis. The patient was admitted on oxygen at 2 L per minute nasal cannula. I was told that with exertion and room air oxygen, the patient desaturates still. We'll going to reevaluate her condition following her hemodialysis ultrafiltration. I'm suspecting that the patient's oxygen will improve following hemodialysis and optimization of the volume status. Note that she had bilateral pleural effusions. As for the mediastinal lymphadenopathy, this can be worked up on outpatient basis. She is afebrile. Hemodynamically stable. No significant elevation of the blood pressure. The enzymes at 24 with a creatinine of 1.59 and the potassium levels at 3.7. Limited echocardiogram shows impaired LV function with an ejection fraction of 35-40% and the patient had evidence of severe pulmonary hypertension. There was also enlargement of the right ventricle. It is possible that the patient was chronic hypoxic as the patient has significant amount of pulmonary hypertension on echocardiogram. On 05/06/2023, the patient is doing well. On room air pulse ox was 94%. A follow-up visit will be done today. Meanwhile, the patient is undergoing another session of hemodialysis with another 2 L of ultrafiltration. She is resting comfortably in bed. Blood pressure stable. No cough or sputum production. No chest pain. While on dialysis, the patient was placed on 2 L of oxygen by nasal cannula. Denies having any significant respiratory distress. On 05/17/2023, seeing the patient for a follow-up. Patient is ventilating. The patient is currently on room air oxygen. Chest x-ray shows some limited infiltration the upper lobes bilaterally. Nevertheless, the patient has responded nicely to daily dialysis and the patient's has optimize her volume status and remains on a combination of cefepime and daptomycin. She is working with the help of physical therapy and she is ventilating in the hallways. Blood work from today shows a white cell count of 3.6, hemoglobin of 8.8, platelet count of 159, BUN is 20 with a creatinine 1.8 and a sodium levels of 135. On 05/18/2023, I'm seeing the patient for a follow-up. The patient is stable. No specific complaints. She is back on torsemide 40 mg by mouth daily. She is also on a combination of cefepime and daptomycin. She is undergoing hemodialysis today. Oxygen requirements have been fluctuating. Currently on 2 L with a pulse ox of 98%. She is to increase mobility and activity. No cough. No sputum production. No chest tightness or wheezing. Labs from today shows a white cell count of 4 with a hemoglobin of 8.7, BUN is at 32 with a creatinine of 2.1 and his sodium level is at 132. No other significant events overnight pH is afebrile. Blood sugars at 151 from this morning. Objective - Vital Signs Vital signs: Vital Signs Temp 98.4 F 05/18/23 08:00 Pulse 72 05/18/23 08:15 Resp 18 05/18/23 08:15 BP 154/84 05/18/23 08:00 Pulse Ox 98 05/18/23 08:00 FiO2 Intake & Output 05/17/23 05/18/23 05/18/23 18:59 06:59 18:59 Intake Total 118 240 222 Balance 118 240 222 Weight 64.5 kg Intake: Oral 118 240 222 Other: Voiding Method Bedside Commode Bedside Commode Bedside Commode Diaper Diaper # Bowel Movements 1 1 - Exam NGENERAL EXAM: Alert, 57-year-old white female, comfortable in no apparent distress. The patient is currently on room air oxygen HEAD: Normocephalic and atraumatic EYES: Normal reaction of pupils, equal size. NOSE: Clear with pink turbinates. THROAT: No erythema or exudates. NECK: No masses, no JVD. CHEST: No chest wall deformity. LUNGS: Equal air entry with faint end expiratory wheezes. No crackles, rhonchi, or focal dullness. No conversational dyspnea or accessory muscle use. The breath sounds are quite diminished in the lung bases bilaterally. CVS: S1 and S2 normal with grade III systolic murmur, regular rhythm. No other extra heart sounds ABDOMEN: No hepatosplenomegaly, active bowel sounds, no guarding or rigidity. SPINE: No scoliosis or deformity SKIN: No rashes. CENTRAL NERVOUS SYSTEM: No focal deficits, tone is normal in all 4 extremities. EXTREMITIES: There is no peripheral edema, clubbing, or cyanosis. Peripheral pulses are diminished Right dorsal foot wound/laceration, healing no evidence of cellulitis. Right heel pressure ulcer around 2 inches wide and the base is clear and there is no active drainage at this point in time. Pulses in lower extremities are quite diminished. - Labs CBC & Chem 7: 05/18/23 08:22 05/18/23 08:22 Labs: Abnormal Lab Results - Last 24 Hours (Table) 05/17/23 05/17/23 05/17/23 Range/Units 06:50 06:50 11:20 RBC (3.80-5.40) m/uL Hgb (11.4-16.0) gm/dL Hct (34.0-46.0) % MCHC (31.0-37.0) g/dL RDW (11.5-15.5) % Lymphocytes # (1.0-4.8) k/uL Sodium (137-145) mmol/L BUN (7-17) mg/dL Creatinine (0.52-1.04) mg/dL Glucose (74-99) mg/dL POC Glucose (mg/dL) 137 H (70-110) mg/dL Calcium (8.4-10.2) mg/dL Alkaline Phosphatase (38-126) U/L C-Reactive Protein 3.8 H (<1.0) mg/dL Albumin (3.5-5.0) g/dL Procalcitonin 1.16 H (0.02-0.09) ng/mL 05/17/23 05/17/23 05/18/23 Range/Units 16:45 20:28 05:59 RBC (3.80-5.40) m/uL Hgb (11.4-16.0) gm/dL Hct (34.0-46.0) % MCHC (31.0-37.0) g/dL RDW (11.5-15.5) % Lymphocytes # (1.0-4.8) k/uL Sodium (137-145) mmol/L BUN (7-17) mg/dL Creatinine (0.52-1.04) mg/dL Glucose (74-99) mg/dL POC Glucose (mg/dL) 257 H 279 H 355 H (70-110) mg/dL Calcium (8.4-10.2) mg/dL Alkaline Phosphatase (38-126) U/L C-Reactive Protein (<1.0) mg/dL Albumin (3.5-5.0) g/dL Procalcitonin (0.02-0.09) ng/mL 05/18/23 05/18/23 Range/Units 08:22 08:22 RBC 3.43 L (3.80-5.40) m/uL Hgb 8.7 L (11.4-16.0) gm/dL Hct 29.2 L (34.0-46.0) % MCHC 29.9 L (31.0-37.0) g/dL RDW 16.5 H (11.5-15.5) % Lymphocytes # 0.6 L (1.0-4.8) k/uL Sodium 132 L (137-145) mmol/L BUN 32 H (7-17) mg/dL Creatinine 2.19 H (0.52-1.04) mg/dL Glucose 269 H (74-99) mg/dL POC Glucose (mg/dL) (70-110) mg/dL Calcium 8.0 L (8.4-10.2) mg/dL Alkaline Phosphatase 197 H (38-126) U/L C-Reactive Protein (<1.0) mg/dL Albumin 3.0 L (3.5-5.0) g/dL Procalcitonin (0.02-0.09) ng/mL Microbiology - Last 24 Hours (Table) 05/15/23 11:11 Blood Culture - Preliminary Blood 05/14/23 08:09 Blood Culture - Preliminary Blood Assessment and Plan Plan: Acute hypoxic respiratory failure, likely on the basis of CHF/fluid overload and the patient has developed bilateral pleural effusions, currently on room air oxygen, monocytes improved. Continues to have some limited infiltration of the upper lobes bilaterally. CHF with mild impairment of LV function with an ejection fraction of 40-45% and moderate MR and severe pulmonary hypertension based on echocardiogram Mediastinal lymphadenopathy with significant mediastinal lymph node calcificatio n. Rule out an old sarcoidosis. Rule out previous adenomatous infection of the lung including Histoplasma. Lymphoma is felt to be less likely. No previous images for comparison. The chronicity of this problem is not well-established. Bilateral pleural effusions likely on the basis of underlying CHF and volume overload. Acute febrile illness, under investigation for now. The patient is currently on Rocephin. Cultures are still pending. Pneumonia is doubtful. End-stage renal disease currently on hemodialysis. The patient is undergoing chemo last and regular basis. The urine output is diminished, the patient continues to have some edema lower extremities bilaterally. The patient is scheduled to undergo hemodialysis 3 times a week Tuesdays and Saturdays. She was started on hemodialysis in 05/07/2023 and she has some volume overload and low urine output. Chronic right heel wound, no evidence of cellulitis , this is a diabetic wound that has no signs of any active infection. Chronic anemia, anemia of chronic disease Diabetes mellitus type 2 Hypertension Hyperlipidemia Chronic tobacco dependence Plan The patient will be given another session of hemodialysis today Clinically improving. Patient can be transitioned to room air oxygen. Patient is currently afebrile. Nevertheless she has a pressure ulcer on her right heel stage III and the patient is currently on a combination of cefepime and daptomycin Continue hemodialysis per nephrology The mediastinal lymphadenopathy which is partially calcified is probably chronic. We can contemplate and endobronchial ultrasound the later stage to establish a tissue diagnosis. Suspect all granulomatous infection versus sarcoidosis. Malignancy is felt to be less likely. Wound care We'll continue to follow Physical therapy is working with the patient and the patient was able to ambulate yesterday.
[2023-05-18 16:50] LABS: Glucose,Whole Blood 85 mg/dL (70-110)
--- NOTE | 2023-05-18 18:51 | P.PN ---
Subjective Progress Note Date: 05/18/23 History of present illness: This is a 57-year-old female with past medical history of diabetes, hypertensi on, hyperlipidemia, chronic systolic and diastolic heart failure, cardiomyopathy undetermined type, pulmonary hypertension, COPD, tobacco use and dependence, chronic kidney disease. We have been asked to evaluate the patient for pulmonary edema. Patient had a recent hospitalization March 2001. During that hospitalization, patient was started on hemodialysis. Patient presented to the hospital with the vertebral 4-1.2. She states she has not been feeling well for the past 1-1/2 days with shortness of breath and chest heaviness. She denies any previous cardiac history and no stents done on her. She complains of a cough. She is not requiring home oxygen but this morning had a pulse ox of 86% on room air and was started on oxygen. Patient has been started on IV antibiotics. Dialysis as scheduled on Saturday. She states her last dialysis was on Saturday. EKG sinus rhythm with no acute changes. Chest x-ray: Findings of CHF. CT of the chest revealed small bilateral pleural effusions with anasarca and cardiomegaly. Correlate for congestive heart failure. Right central venous catheter with tip in the superior vena cava. Lymphadenopathy scattered thro ughout. Severe coronary artery atherosclerosis. WBC 4, hemoglobin 8.7, platelet count 143. Sodium 134, potassium 4.8, BUN 26 and creatinine 1.7. Blood sugar 174. Alkaline phosphatase 171 and otherwise liver function tests are normal. C-reactive protein 4.4. ProBNP 26,300. Troponin negative 1. Influenza A, influenza B, RNC, Covid 19 not detected Home cardiac medications: Atorvastatin 40 mg daily, Coreg 25 mg twice daily, Farxiga 5 milligrams daily, Zetia 10 mg daily, Lasix 60 mg twice daily, hydralazine 25 mg 3 times daily, metolazone 5 mg daily. Echocardiogram performed on 04/17/2023 revealed moderately impaired left ventricular systolic function with global hypokinesis, EF 40-45%. Moderate mitral and tricuspid regurgitation. Severe pulmonary hypertension. 05/15 Patient is seen today on the CSD unit. SHe is currently undergoing HD and to remove 2 L today. Patient is currently on IV Lasix 80 mg every 12 hours. Yesterday we discontinued metolazone and started patient on Imdur. Blood pressure 138/74, heart rate in the 70s. Pulse ox 97% on 4 L. Repeat blood work reveals BUN 24 creatinine 1.59. Sodium 136 and potassium 3.7. Phosphorus 4.7, magnesium 2.0. Nephrology has started Ferrelcit. 05/16 Patient underwent HD yesterday and scheduled again today. Echocardiogram reveals a reduction and EF since last echocardiogram. EF is 35%. Blood pressure 151/80, heart rate in the 60s and 70s, afebrile, pulse ox 95% on 2 L nasal cannula. Patient is currently on cefepime, daptomycin per infectious disease for febrile illness. 05/17 Patient was tentatively planned for cardiac catheterization but due to septic workup in progress, this will be pulm phone and can be performed as an outpatient. Patient is not currently on SANDIP inhibitor, ARB or Aldactone due to kidney function in hopes that it will recover. Blood pressure 141/65, heart rate in the 60s and 70s. WBC 3.6, hemoglobin 8.8. Sodium 135, potassium 4.2, BUN 20 creatinine 1.8. 05/18/23 Patient's blood cultures so far has been negative. Seems like patient has not had any fevers while being on antibiotics. Patient is still making urine. She is tolerating hemodialysis. Hemodynamic stable. Creatinine 2.1 and today. Yesterday was 1.8 Physical examination: Gen: This is a 57-year-old female resting in bed and appears to be in no acute distress VS: reviewed HEENT: Head is atraumatic, normocephalic. Pupils equal, round. Sclerae is anicteric. LUNGS: Diminished breath sounds. No intercostal retractions. HEART: Regular rate and rhythm. No murmur. ABDOMEN: Soft No tenderness. EXTREMITIES: No pedal edema. No calf tenderness. NEUROLOGICAL: Patient is awake, alert and oriented x3. Assessment: Acute febrile illness, fever of unknown origin Acute hypoxic respiratory failure Acute on chronic systolic heart failure and diastolic heart failure Bilateral pleural effusions Cardiomyopathy, suspect ischemic due to patient's risk factors Hypertension Hyperlipidemia Pulmonary hypertension COPD End-stage renal disease on hemodialysis Chronic anemia Thrombocytopenia Diabetes mellitus type 2 Tobacco use and dependence Severe coronary artery atherosclerosis on CT imaging Heel cellulitis Plan: Continue patient's home cardiac medications Continue patient on Imdur 15 mg daily IV diuretics per nephrology Monitor I and O, daily weights, electrolytes and renal function Febrile illness workup per ID Patient will follow-up in the office with Dr. LELA Blanco and be scheduled for outpatient cardiac catheterization. Objective - Vital Signs Vital signs: Vital Signs Temp 99.4 F 05/18/23 16:00 Pulse 77 05/18/23 16:00 Resp 18 05/18/23 16:00 BP 157/66 05/18/23 16:00 Pulse Ox 92 L 05/18/23 16:00 FiO2 Intake & Output 05/17/23 05/18/23 05/18/23 18:59 06:59 18:59 Intake Total 118 240 722 Output Total 3600 Balance 118 240 -2878 Weight 64.5 kg Intake: Oral 118 240 222 Hemodialysis 500 Output: Hemodialysis 3600 Other: Voiding Method Bedside Commode Bedside Commode Bedside Commode Diaper Diaper # Voids 1 # Bowel Movements 1 1 1 - Labs CBC & Chem 7: 05/18/23 08:22 05/18/23 08:22 Labs: Abnormal Lab Results - Last 24 Hours (Table) 05/17/23 05/18/23 05/18/23 Range/Units 20:28 05:59 08:22 RBC 3.43 L (3.80-5.40) m/uL Hgb 8.7 L (11.4-16.0) gm/dL Hct 29.2 L (34.0-46.0) % MCHC 29.9 L (31.0-37.0) g/dL RDW 16.5 H (11.5-15.5) % Lymphocytes # 0.6 L (1.0-4.8) k/uL Sodium (137-145) mmol/L BUN (7-17) mg/dL Creatinine (0.52-1.04) mg/dL Glucose (74-99) mg/dL POC Glucose (mg/dL) 279 H 355 H (70-110) mg/dL Calcium (8.4-10.2) mg/dL Alkaline Phosphatase (38-126) U/L Albumin (3.5-5.0) g/dL 05/18/23 05/18/23 Range/Units 08:22 11:38 RBC (3.80-5.40) m/uL Hgb (11.4-16.0) gm/dL Hct (34.0-46.0) % MCHC (31.0-37.0) g/dL RDW (11.5-15.5) % Lymphocytes # (1.0-4.8) k/uL Sodium 132 L (137-145) mmol/L BUN 32 H (7-17) mg/dL Creatinine 2.19 H (0.52-1.04) mg/dL Glucose 269 H (74-99) mg/dL POC Glucose (mg/dL) 151 H (70-110) mg/dL Calcium 8.0 L (8.4-10.2) mg/dL Alkaline Phosphatase 197 H (38-126) U/L Albumin 3.0 L (3.5-5.0) g/dL Microbiology - Last 24 Hours (Table) 05/15/23 11:11 Blood Culture - Preliminary Blood 05/13/23 11:11 Blood Culture - Final Blood 05/13/23 11:11 Blood Culture - Final Blood 05/14/23 08:09 Blood Culture - Preliminary Blood
[2023-05-18 19:59] LABS: Glucose,Whole Blood 82 mg/dL (70-110)
--- NOTE | 2023-05-19 00:20 | P.PN ---
Progress Note - Text Progress Note Date: 05/18/23 Hospital course: Rounding for Dr. Darnell Gaming. 05/18/2023: Resting right. Hemodialysis today. Has been up to the bathroom. Appetite fair. Active Medications Acetaminophen (Acetaminophen Tab 500 Mg Tab) 500 mg PO Q6HR PRN PRN Reason: Fever and/ or Pain Last Admin: 05/17/23 03:59 Dose: 500 mg Albuterol/Ipratropium (Ipratropium-Albuterol 3 Ml Neb) 3 ml INHALATION RT-QID [facility] Last Admin: 05/18/23 20:10 Dose: 3 ml Budesonide (Budesonide 0.5 Mg/2 Ml Nebu) 0.5 mg INHALATION RT-BID [facility] Last Admin: 05/18/23 20:10 Dose: 0.5 mg Carvedilol (Carvedilol 12.5 Mg Tab) 25 mg PO BID@0900,1700 [facility] Last Admin: 05/18/23 16:29 Dose: 25 mg Darbepoetin Frantz (Darbepoetin Frantz 40 Mcg/0.4 Ml Syringe) 40 mcg SQ Q7D [facility] Last Admin: 05/16/23 17:31 Dose: 40 mcg Ezetimibe (Ezetimibe 10 Mg Tab) 10 mg PO DAILY [facility] Last Admin: 05/18/23 08:07 Dose: 10 mg Gabapentin (Gabapentin 100 Mg Cap) 100 mg PO TID [facility] Last Admin: 05/18/23 21:51 Dose: 100 mg Hydralazine HCl (Hydralazine Hcl 25 Mg Tab) 25 mg PO TID [facility] Last Admin: 05/18/23 21:51 Dose: 25 mg Cefepime HCl 1 gm/ Sodium (Chloride) 50 mls @ 12.5 mls/hr IVPB Q12HR [facility]; Protocol Last Admin: 05/18/23 21:51 Dose: 12.5 mls/hr Ferric Sodium Gluconate 125 mg (/ Sodium Chloride) 110 mls @ 100 mls/hr IVPB DAILY [facility] Last Admin: 05/18/23 15:07 Dose: 100 mls/hr Insulin Detemir (Insulin Detemir (Levemir) 100 Unit/Ml Syr) 15 unit SQ DAILY@0700 [facility] Last Admin: 05/18/23 06:34 Dose: 15 unit Isosorbide Mononitrate (Isosorbide Mononitrate Er 15 Mg Tab) 15 mg PO DAILY [facility] Last Admin: 05/18/23 13:59 Dose: 15 mg Multivitamins (Multivitamins, Thera 1 Each Tab) 1 each PO DAILY [facility] Last Admin: 05/18/23 08:07 Dose: 1 each Petrolatum (Zinc Oxide Paste (Z-Guard) 1 Applic) 1 applic TOPICAL Q2HR PRN; Protocol PRN Reason: Wound Healing Last Admin: 05/17/23 20:14 Dose: 1 applic Potassium Chloride (Potassium Chloride Er 20 Meq Tab.Er) 20 meq PO DAILY [facility] Last Admin: 05/18/23 08:07 Dose: 20 meq Ropinirole HCl (Ropinirole Hcl 1 Mg Tab) 1 mg PO HS [facility] Last Admin: 05/18/23 21:51 Dose: 1 mg Sertraline HCl (Sertraline 50 Mg Tab) 50 mg PO DAILY [facility] Last Admin: 05/18/23 08:07 Dose: 50 mg Torsemide (Torsemide 20 Mg Tab) 40 mg PO DAILY [facility] Last Admin: 05/18/23 08:08 Dose: 40 mg On examination: VITAL SIGNS: [99.4, 77, 18, 157 was 86, 92% room air] GENERAL APPEARANCE: Resting bed, getting hemodialysis HEENT: Normal external appearance of nose and ear. Oral cavity normal EYES: Pupils equal. Conjunctiva normal. NECK: JVD not raised. Mass not palpable. RESPIRATORY: Respiratory effort normal. Lungs clear to auscultation. CARDIOVASCULAR: First and second sounds normal. No edema. ABDOMEN: Soft. Liver and spleen not palpable. No tenderness. No mass palpable. PSYCHIATRY: Alert and oriented x3. Mood and affect normal. INVESTIGATIONS, reviewed in the clinical context: Today's labs noted Assessment and plan: Acute hypoxic respiratory failure, likely on the basis of CHF/fluid overload and bilateral pleural effusions, : Better Acute on chronic systolic CHF ejection fraction of 40-45% Fluid removal with hemodialysis - moderate MR - severe secondary pulmonary hypertension Mediastinal lymphadenopathy with significant mediastinal lymph node c alcification. Rule out an old sarcoidosis. Rule out previous adenomatous infection of the lung including Histoplasma. Lymphoma is felt to be less likely. No previous images for comparison. The chronicity of this problem is not well-established. Follow with pulmonary Bilateral pleural effusions likely on the basis of underlying CHF and volume overload.: Better Acute febrile illness, Was on Rocephin. Cultures negative. Now on cefepime and daptomycin. Being followed by ID. End-stage renal disease currently on hemodialysis. hemodialysis 3 times a week Tuesdays and Saturdays. She was started on hemodialysis in 05/07/2023 and she has some volume overload and low urine output. Pressure ulcer right heel stage III Seen by ID. Not felt of acute infection.. , anemia of chronic disease Diabetes mellitus type 2 Hypertension Hyperlipidemia Chronic tobacco dependence -Full code
--- NOTE | 2023-05-19 02:21 | P.PN ---
Subjective Progress Note Date: 05/18/23 Principal diagnosis: Reason for follow-up is fever This is a telehealth visit Patient is a 57-year-old female with a past medical history significant for diabetes mellitus, hypertension right heel diabetic foot wound and cellulitis with recent admission to the hospital local culture positive for Pseudomonas Enterococcus and the patient received 3-week course of IV Zosyn during the hospital stay the patient also developed renal failure requiring dialysis, presenting back to the hospital with worsening shortness of breath and also have a fever. Chest x-ray was suggestive of CHF, CT of the chest small bilateral effusion and cardiomegaly lymphadenopathy scattered throughout. On today's evaluation that is 05/18/2023 the patient remains to be afebrile, the patient is breathing comfortably currently on 2 L nasal cannula oxygen, the patient denies having any chest pain shortness of breath patient has been complaining of cough and is bringing up some sputum no nausea vomiting no abdominal pain and no diarrhea patient white count of 4.1, creatinine is 2.19 multiple blood culture has been negative Objective - Vital Signs Vital signs: Vital Signs Temp 99.4 F 05/18/23 16:00 Pulse 77 05/18/23 16:00 Resp 18 05/18/23 16:00 BP 157/66 05/18/23 16:00 Pulse Ox 92 L 05/18/23 16:00 FiO2 Intake & Output 05/17/23 05/18/23 05/18/23 18:59 06:59 18:59 Intake Total 118 240 722 Output Total 3600 Balance 118 240 -2878 Weight 64.5 kg Intake: Oral 118 240 222 Hemodialysis 500 Output: Hemodialysis 3600 Other: Voiding Method Bedside Commode Bedside Commode Bedside Commode Diaper Diaper # Bowel Movements 1 1 - Exam GENERAL DESCRIPTION: Middle-aged female lying in bed in no distress RESPIRATORY SYSTEM: Unlabored breathing , decreased breath sounds at bases HEART: S1 S2 regular rate and rhythm , ABDOMEN: Soft , no tenderness EXTREMITIES: Right heel wound is currently dressed - Labs CBC & Chem 7: 05/18/23 08:22 05/18/23 08:22 Labs: Abnormal Lab Results - Last 24 Hours (Table) 05/17/23 05/18/23 05/18/23 Range/Units 20:28 05:59 08:22 RBC 3.43 L (3.80-5.40) m/uL Hgb 8.7 L (11.4-16.0) gm/dL Hct 29.2 L (34.0-46.0) % MCHC 29.9 L (31.0-37.0) g/dL RDW 16.5 H (11.5-15.5) % Lymphocytes # 0.6 L (1.0-4.8) k/uL Sodium (137-145) mmol/L BUN (7-17) mg/dL Creatinine (0.52-1.04) mg/dL Glucose (74-99) mg/dL POC Glucose (mg/dL) 279 H 355 H (70-110) mg/dL Calcium (8.4-10.2) mg/dL Alkaline Phosphatase (38-126) U/L Albumin (3.5-5.0) g/dL 05/18/23 05/18/23 Range/Units 08:22 11:38 RBC (3.80-5.40) m/uL Hgb (11.4-16.0) gm/dL Hct (34.0-46.0) % MCHC (31.0-37.0) g/dL RDW (11.5-15.5) % Lymphocytes # (1.0-4.8) k/uL Sodium 132 L (137-145) mmol/L BUN 32 H (7-17) mg/dL Creatinine 2.19 H (0.52-1.04) mg/dL Glucose 269 H (74-99) mg/dL POC Glucose (mg/dL) 151 H (70-110) mg/dL Calcium 8.0 L (8.4-10.2) mg/dL Alkaline Phosphatase 197 H (38-126) U/L Albumin 3.0 L (3.5-5.0) g/dL Microbiology - Last 24 Hours (Table) 05/15/23 11:11 Blood Culture - Preliminary Blood 05/13/23 11:11 Blood Culture - Final Blood 05/13/23 11:11 Blood Culture - Final Blood 05/14/23 08:09 Blood Culture - Preliminary Blood Assessment and Plan (1) Pressure ulcer of right heel, stage 3 Current Visit: No Status: Acute Code(s): L89.613 - PRESSURE ULCER OF RIGHT HEEL, STAGE 3 SNOMED Code(s): 79719443462375 (2) Fever Current Visit: Yes Status: Acute Code(s): R50.9 - FEVER, UNSPECIFIED SNOMED Code(s): 835626567 Plan: 1-patient presented to hospital with fever also complaining of increasing shortness of breath and cough however the chest x-ray is mostly suggestive of CHF rather than pneumonia 2-patient did have right heel wound which seem to be healing well with no evidence of any cellulitis 3-local wound care to the right heel with Aquacel silver dressing change every 48 hour 4-patient did have resolution of her fever and white count is normal the patient blood cultures are negative we will make line related sepsis to be less likely we will discontinue daptomycin did have mostly respiratory symptoms and is bringing up some purulent sputum will try to obtain the cultures continue with cefepime and monitor clinical course closely Dictation was produced using [employer] software. please excuse any grammatical, word or spelling errors.
[2023-05-19 06:17] LABS: Glucose,Whole Blood 142 mg/dL (70-110)
--- NOTE | 2023-05-19 10:32 | P.PN ---
Subjective Patient is seen in follow-up for acute kidney injury, hemodialysis dependent. Tolerated 3 L ultrafiltration yesterday. Currently on room air. Hem odynamically stable. Vital signs are stable. General: No acute distress. HEENT: Head exam is unremarkable. LUNGS: No audible rhonchi or wheezes. HEART: Rate and Rhythm are regular. ABDOMEN: Nontender. EXTREMITITES: Trace edema. Objective - Vital Signs Vital signs: Vital Signs Temp 97.1 F L 05/19/23 08:20 Pulse 68 05/19/23 08:20 Resp 16 05/19/23 08:20 BP 144/70 05/19/23 08:20 Pulse Ox 94 L 05/19/23 08:20 FiO2 Intake & Output 05/18/23 05/19/23 05/19/23 18:59 06:59 18:59 Intake Total 722 Output Total 3600 Balance -2878 Weight 58.7 kg Intake: Oral 222 Hemodialysis 500 Output: Hemodialysis 3600 Other: Voiding Method Bedside Commode Toilet Toilet Diaper Diaper Diaper # Voids 1 1 # Bowel Movements 1 - Labs CBC & Chem 7: 05/18/23 08:22 05/18/23 08:22 Labs: Abnormal Lab Results - Last 24 Hours (Table) 05/18/23 05/19/23 Range/Units 11:38 06:16 POC Glucose (mg/dL) 151 H 142 H (70-110) mg/dL Microbiology - Last 24 Hours (Table) 05/15/23 11:11 Blood Culture - Preliminary Blood 05/13/23 11:11 Blood Culture - Final Blood 05/13/23 11:11 Blood Culture - Final Blood Assessment and Plan Plan: Assessment: 1. Acute kidney injury secondary to ATN secondary to cardiorenal syndrome. Started on hemodialysis 05/07/2023 due to severe volume overload and low urine output. Has permacath. 2. Acute on chronic systolic CHF with ejection fraction of 40-45% with severe pulmonary hypertension. 3. Anemia. Iron deficiency noted. Receiving IV iron. On Aranesp. 4. Volume overload. Improved with ultrafiltration. 5. Diabetes mellitus. 6. Right heel cellulitis on antibiotics. Plan: Hemodialysis Saturday. Maintain torsemide. Maintain 1500 mL fluid restriction. Follow-up cultures. Monitor for renal recovery outpatient. Phosphorus level 4.7 dated 05/15/2023.
[2023-05-19 11:46] LABS: Glucose,Whole Blood 239 mg/dL (70-110)
--- NOTE | 2023-05-19 13:41 | P.PN ---
Subjective Progress Note Date: 05/19/23 Patient is a 57-year-old white female was being seen for shortness of breath. The patient is known to have multiple medical problems and comorbidities. The patient's is quite debilitated despite her young age. She had a recent prolonged hospitalization for CHF and right foot wound, which was treated inpatient with antibiotics. Subsequently, developing acute renal failure requiring hemodialysis catheter placement on May 10. She was discharged on May 11. Other past medical history includes CHF, diabetes mellitus, hypertension, hyperlipidemia COPD, and tobacco dependence. Patient presented the hospital yesterday morning complaining of progressively worsening shortness of breath since her recent hospital discharge 2 days prior. She does have right IJ hemodialysis catheter, and was scheduled to start a /SAT HD schedule today. She still produces urine. She is currently lying in bed, on 3 L/m nasal cannula, in no acute distress. She denies any chest pain, heart palpitations, syncope, lower extremity swelling. Admits chronic cough, mostly nonproductive, with occasional clear sputum production. Denies any fevers at home, however, was noted to have mild fever of 100.1F on arrival. Chest x-ray showed a stable heart with interstitial changes. No focal infiltrates. Follow-up Chest CT demonstrates borderline cardiomegaly and small bilateral effusions. Partially calcified mediastinal and hilar lymph nodes. There is scattered lymphadenopathy throughout which could be secondary to third spacing of fluid. There is also severe coronary atherosclerosis. Upon further questioning, the patient has no history of pulmonary infection, no previous history of histoplasma infection. No previous history of sarcoidosis. No previous history of radiation therapy or chest malignancy. No cell lymphoma. CBC on arrival: WBC count 9.1, hemoglobin 10.5, hematocrit 34.7, platelets 190. BMP arrival: Sodium 137, potassium 4.6, chloride 100, serum bicarbonate 25, BUN 23, creatinine 1.64, glucose 436. Lactic acid level I. Urinalysis not concerning for UTI. Negative for inf luenza, RSV, COVID-19. Vital signs are stable. This morning, the patient is undergoing hemodialysis with a goal of ultrafiltration of around 2.4 L. She is, comfortable. He is already on 4 L of oxygen by nasal cannula. She is afebrile for now. Cultures are been sent and results are still pending for now. The patient on a combination of Rocephin and Zithromax. On today's evaluation of 05/05/2023, the patient is supposed to have another session of hemodialysis. The patient was admitted on oxygen at 2 L per minute nasal cannula. I was told that with exertion and room air oxygen, the patient desaturates still. We'll going to reevaluate her condition following her hemodialysis ultrafiltration. I'm suspecting that the patient's oxygen will improve following hemodialysis and optimization of the volume status. Note that she had bilateral pleural effusions. As for the mediastinal lymphadenopathy, this can be worked up on outpatient basis. She is afebrile. Hemodynamically stable. No significant elevation of the blood pressure. The enzymes at 24 with a creatinine of 1.59 and the potassium levels at 3.7. Limited echocardiogram shows impaired LV function with an ejection fraction of 35-40% and the patient had evidence of severe pulmonary hypertension. There was also enlargement of the right ventricle. It is possible that the patient was chronic hypoxic as the patient has significant amount of pulmonary hypertension on echocardiogram. On 05/06/2023, the patient is doing well. On room air pulse ox was 94%. A follow-up visit will be done today. Meanwhile, the patient is undergoing another session of hemodialysis with another 2 L of ultrafiltration. She is resting comfortably in bed. Blood pressure stable. No cough or sputum production. No chest pain. While on dialysis, the patient was placed on 2 L of oxygen by nasal cannula. Denies having any significant respiratory distress. On 05/17/2023, seeing the patient for a follow-up. Patient is ventilating. The patient is currently on room air oxygen. Chest x-ray shows some limited infiltration the upper lobes bilaterally. Nevertheless, the patient has responded nicely to daily dialysis and the patient's has optimize her volume status and remains on a combination of cefepime and daptomycin. She is working with the help of physical therapy and she is ventilating in the hallways. Blood work from today shows a white cell count of 3.6, hemoglobin of 8.8, platelet count of 159, BUN is 20 with a creatinine 1.8 and a sodium levels of 135. On 05/18/2023, I'm seeing the patient for a follow-up. The patient is stable. No specific complaints. She is back on torsemide 40 mg by mouth daily. She is also on a combination of cefepime and daptomycin. She is undergoing hemodialysis today. Oxygen requirements have been fluctuating. Currently on 2 L with a pulse ox of 98%. She is to increase mobility and activity. No cough. No sputum production. No chest tightness or wheezing. Labs from today shows a white cell count of 4 with a hemoglobin of 8.7, BUN is at 32 with a creatinine of 2.1 and his sodium level is at 132. No other significant events overnight pH is afebrile. Blood sugars at 151 from this morning. 05/19/2023, the patient is being seen for a follow-up. She is currently on room air oxygen. No signs of any respiratory distress. Her last hemodialysis session was yesterday. No plan for hemodialysis today. Remains on the same antibiotic coverage. No new labs from today. Most recent labs are from yesterday. Objective - Vital Signs Vital signs: Vital Signs Temp 97.1 F L 05/19/23 08:20 Pulse 68 05/19/23 08:20 Resp 16 05/19/23 08:20 BP 144/70 05/19/23 08:20 Pulse Ox 94 L 05/19/23 08:20 FiO2 Intake & Output 05/18/23 05/19/23 05/19/23 18:59 06:59 18:59 Intake Total 722 Output Total 3600 Balance -2878 Weight 58.7 kg Intake: Oral 222 Hemodialysis 500 Output: Hemodialysis 3600 Other: Voiding Method Bedside Commode Toilet Toilet Diaper Diaper Diaper # Voids 1 1 # Bowel Movements 1 - Exam NGENERAL EXAM: Alert, 57-year-old white female, comfortable in no apparent distress. The patient is currently on room air oxygen HEAD: Normocephalic and atraumatic EYES: Normal reaction of pupils, equal size. NOSE: Clear with pink turbinates. THROAT: No erythema or exudates. NECK: No masses, no JVD. CHEST: No chest wall deformity. LUNGS: Equal air entry with faint end expiratory wheezes. No crackles, rhonchi, or focal dullness. No conversational dyspnea or accessory muscle use. The breath sounds are quite diminished in the lung bases bilaterally. CVS: S1 and S2 normal with grade III systolic murmur, regular rhythm. No other extra heart sounds ABDOMEN: No hepatosplenomegaly, active bowel sounds, no guarding or rigidity. SPINE: No scoliosis or deformity SKIN: No rashes. CENTRAL NERVOUS SYSTEM: No focal deficits, tone is normal in all 4 extremities. EXTREMITIES: There is no peripheral edema, clubbing, or cyanosis. Peripheral pulses are diminished Right dorsal foot wound/laceration, healing no evidence of cellulitis. Right heel pressure ulcer around 2 inches wide and the base is clear and there is no active drainage at this point in time. Pulses in lower extremities are quite diminished. - Labs CBC & Chem 7: 05/18/23 08:22 05/18/23 08:22 Labs: Abnormal Lab Results - Last 24 Hours (Table) 05/18/23 05/19/23 Range/Units 11:38 06:16 POC Glucose (mg/dL) 151 H 142 H (70-110) mg/dL Microbiology - Last 24 Hours (Table) 05/15/23 11:11 Blood Culture - Preliminary Blood 05/13/23 11:11 Blood Culture - Final Blood 05/13/23 11:11 Blood Culture - Final Blood Assessment and Plan Plan: Acute hypoxic respiratory failure, likely on the basis of CHF/fluid overload and the patient has developed bilateral pleural effusions, currently on room air oxygen, and the patient is oxygen stable and improved and she denies having any significant respiratory distress at this point in time.. CHF with mild impairment of LV function with an ejection fraction of 40-45% and moderate MR and severe pulmonary hypertension based on echocardiogram Mediastinal lymphadenopathy with significant mediastinal lymph node calcification. Rule out an old sarcoidosis. Rule out previous adenomatous i nfection of the lung including Histoplasma. Lymphoma is felt to be less likely. No previous images for comparison. The chronicity of this problem is not well- established. Bilateral pleural effusions likely on the basis of underlying CHF and volume overload. Acute febrile illness, under investigation for now. The patient is currently on Rocephin. Cultures are still pending. Pneumonia is doubtful. End-stage renal disease currently on hemodialysis. The patient is undergoing chemo last and regular basis. The urine output is diminished, the patient continues to have some edema lower extremities bilaterally. The patient is scheduled to undergo hemodialysis 3 times a week Tuesdays and Saturdays. She was started on hemodialysis in 05/07/2023 and she has some volume overload and low urine output. Chronic right heel wound, no evidence of cellulitis , this is a diabetic wound that has no signs of any active infection. Chronic anemia, anemia of chronic disease Diabetes mellitus type 2 Hypertension Hyperlipidemia Chronic tobacco dependence Plan Last hemodialysis session was yesterday Improved clinically The patient is currently on room air oxygen Patient is currently afebrile. Nevertheless she has a pressure ulcer on her right heel stage III and the patient is currently on a combination of cefepime and daptomycin Continue hemodialysis per nephrology The mediastinal lymphadenopathy which is partially calcified is probably chronic. We can contemplate and endobronchial ultrasound the later stage to establish a tissue diagnosis. Suspect all granulomatous infection versus sarcoidosis. Malignancy is felt to be less likely. Wound care We'll continue to follow Physical therapy is working with the patient and the patient was able to ambulate
[2023-05-19 16:21] LABS: Glucose,Whole Blood 108 mg/dL (70-110)
[2023-05-19 19:59] LABS: Glucose,Whole Blood 143 mg/dL (70-110)
--- NOTE | 2023-05-19 22:21 | P.PN ---
Subjective Progress Note Date: 05/19/23 Principal diagnosis: Reason for follow-up is fever This is a telehealth visit Patient is a 57-year-old female with a past medical history significant for diabetes mellitus, hypertension right heel diabetic foot wound and cellulitis with recent admission to the hospital local culture positive for Pseudomonas Enterococcus and the patient received 3-week course of IV Zosyn during the hospital stay the patient also developed renal failure requiring dialysis, presenting back to the hospital with worsening shortness of breath and also have a fever. Chest x-ray was suggestive of CHF, CT of the chest small bilateral effusion and cardiomegaly lymphadenopathy scattered throughout. On today's evaluation that is 05/19/2023 the patient continues to be afebrile, the patient is breathing comfortably on room air patient denies having any chest pain occasional cough no significant sputum production, the pt denies nausea vomiting no abdominal pain no diarrhea. CRP is 14.7 procalcitonin is 1.16 blood culture has been negative sputum not collected Objective - Vital Signs Vital signs: Vital Signs Temp 97.1 F L 05/19/23 08:20 Pulse 68 05/19/23 08:20 Resp 16 05/19/23 08:20 BP 144/70 05/19/23 08:20 Pulse Ox 94 L 05/19/23 08:20 FiO2 Intake & Output 05/18/23 05/19/23 05/19/23 18:59 06:59 18:59 Intake Total 722 Output Total 3600 Balance -2878 Weight 58.7 kg Intake: Oral 222 Hemodialysis 500 Output: Hemodialysis 3600 Other: Voiding Method Bedside Commode Toilet Toilet Diaper Diaper Diaper # Voids 1 1 # Bowel Movements 1 - Exam GENERAL DESCRIPTION: Middle-aged female lying in bed in no distress RESPIRATORY SYSTEM: Unlabored breathing , decreased breath sounds at bases HEART: S1 S2 regular rate and rhythm , ABDOMEN: Soft , no tenderness EXTREMITIES: Right heel wound is currently dressed - Labs CBC & Chem 7: 05/18/23 08:22 05/18/23 08:22 Labs: Abnormal Lab Results - Last 24 Hours (Table) 05/18/23 05/19/23 Range/Units 11:38 06:16 POC Glucose (mg/dL) 151 H 142 H (70-110) mg/dL Microbiology - Last 24 Hours (Table) 05/15/23 11:11 Blood Culture - Preliminary Blood 05/13/23 11:11 Blood Culture - Final Blood 05/13/23 11:11 Blood Culture - Final Blood Assessment and Plan (1) Pressure ulcer of right heel, stage 3 Current Visit: No Status: Acute Code(s): L89.613 - PRESSURE ULCER OF RIGHT HEEL, STAGE 3 SNOMED Code(s): 62039054351994 (2) Fever Current Visit: Yes Status: Acute Code(s): R50.9 - FEVER, UNSPECIFIED SNOMED Code(s): 776208233 Plan: 1-patient presented to hospital with fever also complaining of increasing shortness of breath and cough with concern for possible pneumonia versus line infection 2-patient did have right heel wound which seem to be healing well with no evidence of any cellulitis 3-local wound care to the right heel with Aquacel silver dressing change every 48 hour 4-patient did have resolution of her fever and white count is normal the patient blood cultures are negative we will make line related sepsis to be less likely, patient did have mostly respiratory symptoms and is bringing up some purulent sputum, concerning for pneumonia also have elevated procalcitonin, patient to continue with cefepime and try to obtain a sputum to narrow down her antibiotics Dictation was produced using [employer] dictation software. please excuse any grammatical, word or spelling errors. Time with Patient: Less than 30
--- NOTE | 2023-05-19 23:20 | P.PN ---
Progress Note - Text Progress Note Date: 05/19/23 Hospital course: Rounding for Dr. Darnell Gaming. 05/18/2023: Resting right. Hemodialysis today. Has been up to the bathroom. Appetite fair. 05/19/2023: In the recliner. Comfortable. Oral intake fair. Patient states she stopped smoking about a month ago. Active Medications Acetaminophen (Acetaminophen Tab 500 Mg Tab) 500 mg PO Q6HR PRN PRN Reason: Fever and/ or Pain Last Admin: 05/17/23 03:59 Dose: 500 mg Albuterol/Ipratropium (Ipratropium-Albuterol 3 Ml Neb) 3 ml INHALATION RT-QID [facility] Last Admin: 05/19/23 20:47 Dose: 3 ml Budesonide (Budesonide 0.5 Mg/2 Ml Nebu) 0.5 mg INHALATION RT-BID [facility] Last Admin: 05/19/23 20:47 Dose: 0.5 mg Carvedilol (Carvedilol 12.5 Mg Tab) 25 mg PO BID@0900,1700 [facility] Last Admin: 05/19/23 17:09 Dose: 25 mg Darbepoetin Frantz (Darbepoetin Frantz 40 Mcg/0.4 Ml Syringe) 40 mcg SQ Q7D [facility] Last Admin: 05/16/23 17:31 Dose: 40 mcg Ezetimibe (Ezetimibe 10 Mg Tab) 10 mg PO DAILY [facility] Last Admin: 05/19/23 08:13 Dose: 10 mg Gabapentin (Gabapentin 100 Mg Cap) 100 mg PO TID [facility] Last Admin: 05/19/23 19:49 Dose: 100 mg Hydralazine HCl (Hydralazine Hcl 25 Mg Tab) 25 mg PO TID [facility] Last Admin: 05/19/23 19:50 Dose: 25 mg Cefepime HCl 1 gm/ Sodium (Chloride) 50 mls @ 12.5 mls/hr IVPB Q12HR [facility]; Protocol Last Admin: 05/19/23 19:49 Dose: 12.5 mls/hr Ferric Sodium Gluconate 125 mg (/ Sodium Chloride) 110 mls @ 100 mls/hr IVPB DAILY [facility] Last Admin: 05/19/23 10:28 Dose: 100 mls/hr Insulin Detemir (Insulin Detemir (Levemir) 100 Unit/Ml Syr) 15 unit SQ DAILY@0700 [facility] Last Admin: 05/19/23 06:35 Dose: 15 unit Isosorbide Mononitrate (Isosorbide Mononitrate Er 15 Mg Tab) 15 mg PO DAILY [facility] Last Admin: 05/19/23 08:13 Dose: 15 mg Multivitamins (Multivitamins, Thera 1 Each Tab) 1 each PO DAILY [facility] Last Admin: 05/19/23 08:13 Dose: 1 each Petrolatum (Zinc Oxide Paste (Z-Guard) 1 Applic) 1 applic TOPICAL Q2HR PRN; Protocol PRN Reason: Wound Healing Last Admin: 05/17/23 20:14 Dose: 1 applic Ropinirole HCl (Ropinirole Hcl 1 Mg Tab) 1 mg PO HS [facility] Last Admin: 05/19/23 19:49 Dose: 1 mg Sertraline HCl (Sertraline 50 Mg Tab) 50 mg PO DAILY [facility] Last Admin: 05/19/23 08:13 Dose: 50 mg Torsemide (Torsemide 20 Mg Tab) 40 mg PO DAILY [facility] Last Admin: 05/19/23 08:13 Dose: 40 mg On examination: VITAL SIGNS: [97.7, 65, 16, 11 7 x 63, 95%] GENERAL APPEARANCE: In a recliner, comfortable HEENT: Normal external appearance of nose and ear. Oral cavity normal EYES: Pupils equal. Conjunctiva normal. NECK: JVD not raised. Mass not palpable. RESPIRATORY: Respiratory effort normal. Lungs clear to auscultation. CARDIOVASCULAR: First and second sounds normal. No edema. ABDOMEN: Soft. Liver and spleen not palpable. No tenderness. No mass palpable. PSYCHIATRY: Alert and oriented x3. Mood and affect normal. INVESTIGATIONS, reviewed in the clinical context: Today's Hx noted Assessment and plan: Acute hypoxic respiratory failure, likely on the basis of CHF/fluid overload and bilateral pleural effusions, : Better Acute on chronic systolic CHF ejection fraction of 40-45% Fluid removal with hemodialysis - moderate MR - severe secondary pulmonary hypertension Mediastinal lymphadenopathy with significant mediastinal lymph node calcification. Rule out an old sarcoidosis. Rule out previous adenomatous infection of the lung including Histoplasma. Lymphoma is felt to be less likely. No previous images for comparison. The chronicity of this problem is not well-established. Follow with pulmonary Bilateral pleural effusions likely on the basis of underlying CHF and volume overload.: Better Acute febrile illness, Was on Rocephin. Blood Cultures negative. Now on cefepime and daptomycin. Being followed by ID. End-stage renal disease currently on hemodialysis. hemodialysis 3 times a week Tuesdays and Saturdays. She was started on hemodialysis in 05/07/2023 and she has some volume overload and low urine output. Pressure ulcer right heel stage III-not infected Seen by ID. , anemia of chronic disease Diabetes mellitus type 2 Follow Accu-Cheks Hypertension Hyperlipidemia Chronic tobacco dependence-stopped smoking a month ago prior to admission -Full code
[2023-05-20 06:01] LABS: Glucose,Whole Blood 99 mg/dL (70-110)
--- NOTE | 2023-05-20 11:19 | P.PN ---
Subjective Patient is seen for follow-up for acute kidney injury currently hemodialysis dependent. Scheduled for hemodialysis in a.m. No complaints of shortness of breath Urine output remains low. Objective - Vital Signs Vital signs: Vital Signs Temp 98 F 05/20/23 04:00 Pulse 72 05/20/23 09:23 Resp 18 05/20/23 04:00 BP 137/73 05/20/23 04:00 Pulse Ox 98 05/20/23 09:08 FiO2 Intake & Output 05/19/23 05/20/23 05/20/23 18:59 06:59 18:59 Intake Total 372 237 Balance 372 237 Weight 55.6 kg Intake: Oral 372 237 Other: Voiding Method Toilet Toilet Diaper Diaper # Bowel Movements 3 - Exam Patient is comfortable awake alert oriented 3 Examination of the heart S1 and S2 Examination the lungs decreased breath sounds at the bases Abdomen is soft nontender Examination of lower extremity shows right heel is wrapped no significant edema noted. - Labs CBC & Chem 7: 05/18/23 08:22 05/18/23 08:22 Labs: Abnormal Lab Results - Last 24 Hours (Table) 05/19/23 05/19/23 05/19/23 Range/Units 11:41 11:44 11:44 POC Glucose (mg/dL) 239 H (70-110) mg/dL C-Reactive Protein 14.7 H (<1.0) mg/dL Procalcitonin 0.93 H (0.02-0.09) ng/mL 05/19/23 Range/Units 19:57 POC Glucose (mg/dL) 143 H (70-110) mg/dL C-Reactive Protein (<1.0) mg/dL Procalcitonin (0.02-0.09) ng/mL Microbiology - Last 24 Hours (Table) 05/14/23 08:09 Blood Culture - Final Blood Assessment and Plan Assessment: 1. Acute kidney injury secondary to ATN secondary to cardiorenal syndrome. Started on hemodialysis 05/07/2023 due to severe volume overload and low urine output. Has permacath. 2. Acute on chronic systolic CHF with ejection fraction of 40-45% with severe pulmonary hypertension. 3. Anemia. Iron deficiency noted. Receiving IV iron. On Aranesp. 4. Volume overload. Improved with ultrafiltration. 5. Diabetes mellitus. 6. Right heel cellulitis on antibiotics. Plan: Hemodialysis in a.m. Continue with torsemide
[2023-05-20 11:53] LABS: Glucose,Whole Blood 163 mg/dL (70-110)
--- NOTE | 2023-05-20 13:18 | P.PN ---
Subjective HISTORY OF PRESENT ILLNESS: This is a 57-year-old female who follows in the office with Dr. Blanco. Patient examined this morning at the bedside. She currently denies chest pain or pressure. She denies shortness of breath. She is on a Saturday schedule for hemodialysis. Echocardiogram completed revealing ejection fraction 35-40%. Vital signs are stable. Telemetry reveals sinus mechanism. PHYSICAL EXAM: VITAL SIGNS: Reviewed. GENERAL: Well-developed in no acute distress. NECK: Supple. No JVD or thyromegaly LUNGS: Respirations even and unlabored. Lungs essentially clear to auscultation bilaterally. HEART: Regular rate and rhythm. S1 and S2 heard. EXTREMITIES: Normal range of motion. No clubbing or cyanosis. Peripheral pulses intact. Dressing noted to right heel. ASSESSMENT: Acute febrile illness Acute hypoxic respiratory failure Acute on chronic heart failure with reduced EF Cardiomyopathy, 35-40%, ischemic versus nonischemic Acute kidney injury, started on hemodialysis due to severe volume overload and low urine output Hypertension Hyperlipidemia COPD Diabetes Nicotine dependence Right heel wound Severe coronary artery atherosclerosis noted on CT imaging Severe pulmonary hypertension PLAN: Continue current cardiac medications Add atorvastatin 40 mg daily Hemodialysis per nephrology. Patient currently on a Saturday schedule Patient will require cardiac catheterization on an outpatient basis to assess cardiomyopathy Further recommendations pending patient course Nurse practitioner note has been reviewed by physician. Signing provider agrees with the documented findings, assessment, and plan of care. Objective - Vital Signs Vital signs: Vital Signs Temp 98.3 F 05/20/23 08:00 Pulse 74 05/20/23 12:14 Resp 18 05/20/23 08:00 BP 152/67 05/20/23 08:00 Pulse Ox 99 05/20/23 12:01 FiO2 Intake & Output 05/19/23 05/20/23 05/20/23 18:59 06:59 18:59 Intake Total 372 237 Balance 372 237 Weight 55.6 kg Intake: Oral 372 237 Other: Voiding Method Toilet Toilet Toilet Diaper Diaper Diaper # Bowel Movements 3 - Labs CBC & Chem 7: 05/18/23 08:22 05/18/23 08:22 Labs: Abnormal Lab Results - Last 24 Hours (Table) 05/19/23 05/19/23 05/20/23 Range/Units 11:44 19:57 11:52 POC Glucose (mg/dL) 143 H 163 H (70-110) mg/dL Procalcitonin 0.93 H (0.02-0.09) ng/mL Microbiology - Last 24 Hours (Table) 05/14/23 08:09 Blood Culture - Final Blood
[2023-05-20 16:26] LABS: Glucose,Whole Blood 119 mg/dL (70-110)
[2023-05-20 19:59] LABS: Glucose,Whole Blood 120 mg/dL (70-110)
[2023-05-20] MEDS: ATORVASTATIN 40 MG TAB PO SCH (20:31)
--- NOTE | 2023-05-20 22:32 | P.PN ---
Subjective Progress Note Date: 05/20/23 Principal diagnosis: Reason for follow-up is fever This is a telehealth visit Patient is a 57-year-old female with a past medical history significant for diabetes mellitus, hypertension right heel diabetic foot wound and cellulitis with recent admission to the hospital local culture positive for Pseudomonas Enterococcus and the patient received 3-week course of IV Zosyn during the hospital stay the patient also developed renal failure requiring dialysis, presenting back to the hospital with worsening shortness of breath and also have a fever. Chest x-ray was suggestive of CHF, CT of the chest small bilateral effusion and cardiomegaly lymphadenopathy scattered throughout. On today's evaluation that is 05/20/2023 the patient remains to be afebrile, patient is breathing comfortably on room air without need for supplemental oxygen, the patient denies having any chest pain, the patient cough is decreased intensity and no significant sputum production no nausea vomiting no abdominal pain and no diarrhea. No new labs has been obtained today blood culture negative sputum not collected Objective - Vital Signs Vital signs: Vital Signs Temp 98 F 05/20/23 04:00 Pulse 72 05/20/23 09:23 Resp 18 05/20/23 04:00 BP 137/73 05/20/23 04:00 Pulse Ox 98 05/20/23 09:08 FiO2 Intake & Output 05/19/23 05/20/23 05/20/23 18:59 06:59 18:59 Intake Total 372 237 Balance 372 237 Weight 55.6 kg Intake: Oral 372 237 Other: Voiding Method Toilet Toilet Diaper Diaper # Bowel Movements 3 - Exam GENERAL DESCRIPTION: Middle-aged female lying in bed in no distress RESPIRATORY SYSTEM: Unlabored breathing , decreased breath sounds at bases HEART: S1 S2 regular rate and rhythm , ABDOMEN: Soft , no tenderness EXTREMITIES: Right heel wound is currently dressed - Labs CBC & Chem 7: 05/18/23 08:22 05/18/23 08:22 Labs: Abnormal Lab Results - Last 24 Hours (Table) 05/19/23 05/19/23 05/19/23 Range/Units 11:41 11:44 11:44 POC Glucose (mg/dL) 239 H (70-110) mg/dL C-Reactive Protein 14.7 H (<1.0) mg/dL Procalcitonin 0.93 H (0.02-0.09) ng/mL 05/19/23 Range/Units 19:57 POC Glucose (mg/dL) 143 H (70-110) mg/dL C-Reactive Protein (<1.0) mg/dL Procalcitonin (0.02-0.09) ng/mL Microbiology - Last 24 Hours (Table) 05/14/23 08:09 Blood Culture - Final Blood Assessment and Plan (1) Pressure ulcer of right heel, stage 3 Current Visit: No Status: Acute Code(s): L89.613 - PRESSURE ULCER OF RIGHT HEEL, STAGE 3 SNOMED Code(s): 47442047916723 (2) Fever Current Visit: Yes Status: Acute Code(s): R50.9 - FEVER, UNSPECIFIED SNOMED Code(s): 925229991 Plan: 1-patient presented to hospital with fever also complaining of increasing shortness of breath and cough with concern for possible pneumonia versus line infection 2-patient did have right heel wound which seem to be healing well with no evidence of any cellulitis 3-local wound care to the right heel with Aquacel silver dressing change every 48 hour 4-patient did have resolution of her fever and white count is normal the patient blood cultures are negative that will make line related sepsis to be less likely 5- patient did have mostly respiratory symptoms and is bringing up some purulent sputum, concerning for pneumonia also have elevated procalcitonin, sputum has been requested but not collected patient to continue with cefepime and hopefully finishing therapy with oral antibiotics on discharge Dictation was produced using [employer] dictation software. please excuse any grammatical, word or spelling errors. Time with Patient: Less than 30
--- NOTE | 2023-05-21 00:15 | PN ---
PROGRESS NOTE SUBJECTIVE: A 57-year-old female. She is getting dialysis, in a recliner. She is comfortable. She stopped smoking a month ago. MEDICINES: Reviewed. OBJECTIVE: VITAL SIGNS: Temp 97.7, pulse 65, respiratory rate 16 to 18, O2 of 95%. HEENT: Normocephalic, atraumatic. LUNGS: Decreased breath sounds. CARDIOVASCULAR: S1, S2. ABDOMEN: Soft. NEUROLOGIC: Alert and oriented x3. ASSESSMENT: Acute hypoxemic respiratory failure, congestive heart failure, fluid overload, bilateral pleural effusions, diastolic heart failure, acute on chronic, moderate MR, severe pulmonary hypertension, mediastinal adenopathy, end-stage renal disease, pressure ulcer on the heel, stage III, anemia of chronic disease, type 2 diabetes mellitus, hypertension, dyslipidemia, nicotine addiction. PLAN: Continue current treatment. Prognosis guarded. PT, OT. Ambulate. Possible rehab placement. MMSUKUMARL / TRIPPN: [id number] /
[2023-05-21 05:57] LABS: Glucose,Whole Blood 56 mg/dL (70-110)
[2023-05-21 06:06] LABS: Glucose,Whole Blood 88 mg/dL (70-110)
[2023-05-21 08:28] LABS: Anisocytosis Slight; Basophils % (A) 1 %; Eosinophils # (A) 0.1 k/uL (0-0.7); Eosinophils % (A) 1 %; HCT 30.8 % (34.0-46.0); HGB 9.5 gm/dL (11.4-16.0); Hypochromasia Marked; Lymphocytes # (A) 0.7 k/uL (1.0-4.8); Lymphocytes % (A) 13 %; MCH 25.8 pg (25.0-35.0); MCHC 30.8 g/dL (31.0-37.0); MCV 83.8 fL (80.0-100.0); Monocytes # (A) 0.2 k/uL (0-1.0); Monocytes % (A) 4 %; Neutrophils # (A) 4.3 k/uL (1.3-7.7); Neutrophils % (A) 79 %; Platelet Count 267 k/uL (150-450); RBC 3.68 m/uL (3.80-5.40); RDW 16.7 % (11.5-15.5); WBC 5.5 k/uL (3.8-10.6)
[2023-05-21 08:54] LABS: ALT 41 U/L (4-34); AST 55 U/L (14-36); African American GFR (CKD) 29 (>60 ml/min/1.73 sqM); Alkaline Phosphatase 275 U/L (38-126); Anion Gap 8 mmol/L; Blood Urea Nitrogen 33 mg/dL (7-17); Calcium 8.1 mg/dL (8.4-10.2); Carbon Dioxide 24 mmol/L (22-30); Chloride 103 mmol/L (98-107); Glucose 204 mg/dL (74-99); Non-African American GFR(CKD) 25 (>60 ml/min/1.73 sqM); Potassium 3.8 mmol/L (3.5-5.1); Sodium 135 mmol/L (137-145); Total Bilirubin 0.6 mg/dL (0.2-1.3); Total Protein 6.7 g/dL (6.3-8.2)
--- NOTE | 2023-05-21 11:12 | P.PN ---
Subjective HISTORY OF PRESENT ILLNESS: This is a 57-year-old female who follows in the office with Dr. Blanco. Patient examined this morning at the bedside. She currently denies chest pain or pressure. She denies shortness of breath. She is on a Saturday schedule for hemodialysis. Echocardiogram completed revealing ejection fraction 35-40%. Vital signs are stable. Telemetry reveals sinus mechanism. May 21, 2023 Patient examined this morning. She is sitting on the side of the bed. She currently denies chest pain or pressure. She denies shortness of breath. Telemetry reveals sinus mechanism with heart rate in the 70s. Blood pressure stable with a recent reading of 118/58. She is scheduled to undergo hemodialysis today. PHYSICAL EXAM: VITAL SIGNS: Reviewed. GENERAL: Well-developed in no acute distress. NECK: Supple. No JVD or thyromegaly LUNGS: Respirations even and unlabored. Lungs essentially clear to auscultation bilaterally. HEART: Regular rate and rhythm. S1 and S2 heard. EXTREMITIES: Normal range of motion. No clubbing or cyanosis. Peripheral pulses intact. Minimal bilateral lower extremity edema. dressing noted to right heel. ASSESSMENT: Acute febrile illness Acute hypoxic respiratory failure Acute on chronic heart failure with reduced EF Cardiomyopathy, 35-40%, ischemic versus nonischemic Acute kidney injury, started on hemodialysis due to severe volume overload and low urine output Hypertension Hyperlipidemia COPD Diabetes Nicotine dependence Right heel wound Severe coronary artery atherosclerosis noted on CT imaging Severe pulmonary hypertension PLAN: Continue current cardiac medications Hemodialysis per nephrology. Patient currently on a Saturday schedule Patient will require cardiac catheterization on an outpatient basis to assess cardiomyopathy Further recommendations pending patient course Nurse practitioner note has been reviewed by physician. Signing provider agrees with the documented findings, assessment, and plan of care. Objective - Vital Signs Vital signs: Vital Signs Temp 97.7 F 05/21/23 08:20 Pulse 76 05/21/23 08:57 Resp 18 05/21/23 08:20 BP 119/58 05/21/23 08:20 Pulse Ox 98 05/21/23 08:47 FiO2 Intake & Output 05/20/23 05/21/23 05/21/23 18:59 06:59 18:59 Intake Total 957 272 Output Total 1 Balance 956 272 Weight 58.6 kg Intake: Intake, IV Titration 50 Amount Cefepime 1 gm In Sodium 50 Chloride 0.9% 50 ml @ 12. 5 mls/hr IVPB Q12HR [facility] Rx#:[id number] Oral 957 222 Output: Urine 1 Other: Voiding Method Toilet Toilet Toilet Diaper Diaper Diaper # Voids 1 1 # Bowel Movements 1 - Labs CBC & Chem 7: 05/21/23 08:10 05/21/23 08:10 Labs: Abnormal Lab Results - Last 24 Hours (Table) 05/20/23 05/20/23 05/20/23 Range/Units 11:52 16:21 19:56 RBC (3.80-5.40) m/uL Hgb (11.4-16.0) gm/dL Hct (34.0-46.0) % MCHC (31.0-37.0) g/dL RDW (11.5-15.5) % Lymphocytes # (1.0-4.8) k/uL Sodium (137-145) mmol/L BUN (7-17) mg/dL Creatinine (0.52-1.04) mg/dL Glucose (74-99) mg/dL POC Glucose (mg/dL) 163 H 119 H 120 H (70-110) mg/dL Calcium (8.4-10.2) mg/dL AST (14-36) U/L ALT (4-34) U/L Alkaline Phosphatase (38-126) U/L Albumin (3.5-5.0) g/dL 05/21/23 05/21/23 05/21/23 Range/Units 05:37 08:10 08:10 RBC 3.68 L (3.80-5.40) m/uL Hgb 9.5 L (11.4-16.0) gm/dL Hct 30.8 L (34.0-46.0) % MCHC 30.8 L (31.0-37.0) g/dL RDW 16.7 H (11.5-15.5) % Lymphocytes # 0.7 L (1.0-4.8) k/uL Sodium 135 L (137-145) mmol/L BUN 33 H (7-17) mg/dL Creatinine 2.12 H (0.52-1.04) mg/dL Glucose 204 H (74-99) mg/dL POC Glucose (mg/dL) 56 L (70-110) mg/dL Calcium 8.1 L (8.4-10.2) mg/dL AST 55 H (14-36) U/L ALT 41 H (4-34) U/L Alkaline Phosphatase 275 H (38-126) U/L Albumin 3.0 L (3.5-5.0) g/dL Microbiology - Last 24 Hours (Table) 05/15/23 11:11 Blood Culture - Final Blood
[2023-05-21 12:01] LABS: Glucose,Whole Blood 373 mg/dL (70-110)
[2023-05-21 16:26] LABS: Glucose,Whole Blood 234 mg/dL (70-110)
--- NOTE | 2023-05-21 16:33 | P.PN ---
Subjective Patient is seen for follow-up for acute kidney injury currently hemodialysis dependent. Scheduled for hemodialysis today No complaints of shortness of breath Urine output remains low. Objective - Vital Signs Vital signs: Vital Signs Temp 98.0 F 05/21/23 16:01 Pulse 80 05/21/23 15:58 Resp 19 05/21/23 16:01 BP 156/77 05/21/23 16:01 Pulse Ox 96 05/21/23 11:43 FiO2 Intake & Output 05/20/23 05/21/23 05/21/23 18:59 06:59 18:59 Intake Total 957 272 800 Output Total 1 5000 Balance 956 272 -4200 Weight 58.6 kg Intake: Intake, IV Titration 50 Amount Cefepime 1 gm In Sodium 50 Chloride 0.9% 50 ml @ 12. 5 mls/hr IVPB Q12HR [facility] Rx#:[id number] Oral 957 222 Hemodialysis 800 Output: Urine 1 Hemodialysis 5000 Other: Voiding Method Toilet Toilet Toilet Diaper Diaper Diaper # Voids 1 1 # Bowel Movements 1 - Exam Patient is comfortable awake alert oriented 3 Examination of the heart S1 and S2 Examination the lungs decreased breath sounds at the bases Abdomen is soft nontender Examination of lower extremity shows right heel is wrapped no significant edema noted. COOK MORNING exam is intact - Labs CBC & Chem 7: 05/21/23 08:10 05/21/23 08:10 Labs: Abnormal Lab Results - Last 24 Hours (Table) 05/20/23 05/21/23 05/21/23 Range/Units 19:56 05:37 08:10 RBC 3.68 L (3.80-5.40) m/uL Hgb 9.5 L (11.4-16.0) gm/dL Hct 30.8 L (34.0-46.0) % MCHC 30.8 L (31.0-37.0) g/dL RDW 16.7 H (11.5-15.5) % Lymphocytes # 0.7 L (1.0-4.8) k/uL Sodium (137-145) mmol/L BUN (7-17) mg/dL Creatinine (0.52-1.04) mg/dL Glucose (74-99) mg/dL POC Glucose (mg/dL) 120 H 56 L (70-110) mg/dL Calcium (8.4-10.2) mg/dL AST (14-36) U/L ALT (4-34) U/L Alkaline Phosphatase (38-126) U/L Albumin (3.5-5.0) g/dL 05/21/23 05/21/23 05/21/23 Range/Units 08:10 11:58 16:23 RBC (3.80-5.40) m/uL Hgb (11.4-16.0) gm/dL Hct (34.0-46.0) % MCHC (31.0-37.0) g/dL RDW (11.5-15.5) % Lymphocytes # (1.0-4.8) k/uL Sodium 135 L (137-145) mmol/L BUN 33 H (7-17) mg/dL Creatinine 2.12 H (0.52-1.04) mg/dL Glucose 204 H (74-99) mg/dL POC Glucose (mg/dL) 373 H 234 H (70-110) mg/dL Calcium 8.1 L (8.4-10.2) mg/dL AST 55 H (14-36) U/L ALT 41 H (4-34) U/L Alkaline Phosphatase 275 H (38-126) U/L Albumin 3.0 L (3.5-5.0) g/dL Microbiology - Last 24 Hours (Table) 05/15/23 11:11 Blood Culture - Final Blood Assessment and Plan Assessment: 1. Acute kidney injury secondary to ATN secondary to cardiorenal syndrome. Started on hemodialysis 05/07/2023 due to severe volume overload and low urine output. Has permacath. Maintained on Saturday schedule 2. Acute on chronic systolic CHF with ejection fraction of 40-45% with severe pulmonary hypertension. 3. Anemia. Iron deficiency noted. Receiving IV iron. On Aranesp. 4. Volume overload. Improved with ultrafiltration. 5. Diabetes mellitus. 6. Right heel cellulitis on antibiotics. Plan: Hemodialysis today with UF of about 2 L Continue with torsemide
[2023-05-21 19:49] LABS: Glucose,Whole Blood 285 mg/dL (70-110)
[2023-05-21] MEDS: DAPAGLIFLOZIN PROPANEDIOL 5 MG TABLET PO SCH (22:12)
[2023-05-22 05:56] LABS: Glucose,Whole Blood 168 mg/dL (70-110)
[2023-05-22] MEDS: INSULIN ASPART (NovoLOG) 100 UNIT/ML VIAL SQ SCH (06:32)
--- NOTE | 2023-05-22 10:57 | P.PN ---
Subjective Patient is seen for follow-up for acute kidney injury currently hemodialysis dependent. Status post hemodialysis yesterday. Tolerated treatment well. UF 2.5 L No complaints of shortness of breath Urine output remains low. Objective - Vital Signs Vital signs: Vital Signs Temp 97.5 F L 05/22/23 08:00 Pulse 76 05/22/23 08:52 Resp 18 05/22/23 08:00 BP 150/73 05/22/23 08:00 Pulse Ox 94 L 05/22/23 08:43 FiO2 Intake & Output 05/21/23 05/22/23 05/22/23 18:59 06:59 18:59 Intake Total 918 540 240 Output Total 5000 Balance -4082 540 240 Weight 56.2 kg Intake: Oral 118 540 240 Hemodialysis 800 Output: Hemodialysis 5000 Other: Voiding Method Toilet Toilet Toilet Diaper Diaper Diaper # Voids 2 - Exam Patient is comfortable awake alert oriented 3 Examination of the heart S1 and S2 Examination the lungs decreased breath sounds at the bases Abdomen is soft nontender Examination of lower extremity shows right heel is wrapped no significant edema noted. [employer] exam is intact - Labs CBC & Chem 7: 05/21/23 08:10 05/21/23 08:10 Labs: Abnormal Lab Results - Last 24 Hours (Table) 05/21/23 05/21/23 05/21/23 Range/Units 11:58 16:23 19:48 POC Glucose (mg/dL) 373 H 234 H 285 H (70-110) mg/dL 05/22/23 Range/Units 05:55 POC Glucose (mg/dL) 168 H (70-110) mg/dL Assessment and Plan Assessment: 1. Acute kidney injury secondary to ATN secondary to cardiorenal syndrome. Started on hemodialysis 05/07/2023 due to severe volume overload and low urine output. Has permacath. Maintained on Saturday schedule 2. Acute on chronic systolic CHF with ejection fraction of 40-45% with severe pulmonary hypertension. 3. Anemia. Iron deficiency noted. Receiving IV iron. On Aranesp. 4. Volume overload. Improved with ultrafiltration. 5. Diabetes mellitus. 6. Right heel cellulitis on antibiotics. Plan: Hemodialysis in a.m. if not discharged. Continue with torsemide
--- NOTE | 2023-05-22 11:28 | P.PN ---
Subjective HISTORY OF PRESENT ILLNESS: This is a 57-year-old female who follows in the office with Dr. Blanco. Patient examined this morning at the bedside. She currently denies chest pain or pressure. She denies shortness of breath. She is on a Saturday schedule for hemodialysis. Echocardiogram completed revealing ejection fraction 35-40%. Vital signs are stable. Telemetry reveals sinus mechanism. May 21, 2023 Patient examined this morning. She is sitting on the side of the bed. She currently denies chest pain or pressure. She denies shortness of breath. Telemetry reveals sinus mechanism with heart rate in the 70s. Blood pressure stable with a recent reading of 118/58. She is scheduled to undergo hemodialysis today. 05/22/2023 Patient examined this morning at the bedside. Patient denies chest pain or pressure. She denies shortness of breath. She underwent hemodialysis yesterday. Patient's blood pressures remain elevated with a systolic in the 150s. PHYSICAL EXAM: VITAL SIGNS: Reviewed. GENERAL: Well-developed in no acute distress. NECK: Supple. No JVD or thyromegaly LUNGS: Respirations even and unlabored. Lungs essentially clear to auscultation bilaterally. HEART: Regular rate and rhythm. S1 and S2 heard. EXTREMITIES: Normal range of motion. No clubbing or cyanosis. Peripheral pulses intact. Minimal bilateral lower extremity edema. dressing noted to right heel. ASSESSMENT: Acute febrile illness Acute hypoxic respiratory failure Acute on chronic heart failure with reduced EF Cardiomyopathy, 35-40%, ischemic versus nonischemic Acute kidney injury, started on hemodialysis due to severe volume overload and low urine output Hypertension Hyperlipidemia COPD Diabetes Nicotine dependence Right heel wound Severe coronary artery atherosclerosis noted on CT imaging Severe pulmonary hypertension PLAN: Continue current cardiac medications Increase hydralazine to 50 mg 3 times a day for optimal blood pressure control Hemodialysis per nephrology. Patient currently on a Saturday schedule Patient will require cardiac catheterization on an outpatient basis to assess cardiomyopathy Patient is stable for discharge home today from a cardiac standpoint Nurse practitioner note has been reviewed by physician. Signing provider agrees with the documented findings, assessment, and plan of care. Objective - Vital Signs Vital signs: Vital Signs Temp 98.1 F 05/22/23 11:10 Pulse 70 05/22/23 11:10 Resp 18 05/22/23 11:10 BP 141/62 05/22/23 11:10 Pulse Ox 96 05/22/23 11:10 FiO2 Intake & Output 05/21/23 05/22/23 05/22/23 18:59 06:59 18:59 Intake Total 918 540 240 Output Total 5000 Balance -4082 540 240 Weight 56.2 kg Intake: Oral 118 540 240 Hemodialysis 800 Output: Hemodialysis 5000 Other: Voiding Method Toilet Toilet Toilet Diaper Diaper Diaper # Voids 2 - Labs CBC & Chem 7: 05/21/23 08:10 05/21/23 08:10 Labs: Abnormal Lab Results - Last 24 Hours (Table) 05/21/23 05/21/23 05/21/23 Range/Units 11:58 16:23 19:48 POC Glucose (mg/dL) 373 H 234 H 285 H (70-110) mg/dL 05/22/23 Range/Units 05:55 POC Glucose (mg/dL) 168 H (70-110) mg/dL
[2023-05-22 11:32] LABS: Glucose,Whole Blood 147 mg/dL (70-110)
[2023-05-22 16:02] LABS: Glucose,Whole Blood <20 mg/dL (70-110)
[2023-05-22 16:10] LABS: Glucose,Whole Blood 134 mg/dL (70-110)
[2023-05-22] MEDS: DEXTROSE 50% SYRINGE 50 ML IVP ONE (16:10)
[2023-05-22 16:37] LABS: Glucose,Whole Blood 88 mg/dL (70-110)
[2023-05-22] MEDS: hydrALAZINE HCL 25 MG TAB PO SCH (16:51)
[2023-05-22 16:53] LABS: Glucose,Whole Blood 105 mg/dL (70-110)
[2023-05-22] MEDS: DEXTROSE 4 GM CHEWABLE PO STA (16:55)
[2023-05-22 20:26] LABS: Glucose,Whole Blood 108 mg/dL (70-110)
--- NOTE | 2023-05-22 23:04 | P.PN ---
Subjective Progress Note Date: 05/21/23 Principal diagnosis: Reason for follow-up is fever This is a telehealth visit Patient is a 57-year-old female with a past medical history significant for diabetes mellitus, hypertension right heel diabetic foot wound and cellulitis with recent admission to the hospital local culture positive for Pseudomonas Enterococcus and the patient received 3-week course of IV Zosyn during the hospital stay the patient also developed renal failure requiring dialysis, presenting back to the hospital with worsening shortness of breath and also have a fever. Chest x-ray was suggestive of CHF, CT of the chest small bilateral effusion and cardiomegaly lymphadenopathy scattered throughout. On today's evaluation that is 05/21/2023 the patient continues to be afebrile, patient is breathing comfortably on room air , the patient denies having any chest pain no significant cough or sputum production no nausea vomiting no abdominal pain and no diarrhea has been reported. Patient did have white count of 5.5, creatinine is 2.12 blood culture has been negative Objective - Vital Signs Vital signs: Vital Signs Temp 97.7 F 05/21/23 08:20 Pulse 76 05/21/23 08:57 Resp 18 05/21/23 08:20 BP 119/58 05/21/23 08:20 Pulse Ox 98 05/21/23 08:47 FiO2 Intake & Output 05/20/23 05/21/23 05/21/23 18:59 06:59 18:59 Intake Total 957 272 Output Total 1 Balance 956 272 Weight 58.6 kg Intake: Intake, IV Titration 50 Amount Cefepime 1 gm In Sodium 50 Chloride 0.9% 50 ml @ 12. 5 mls/hr IVPB Q12HR [facility] Rx#:[id number] Oral 957 222 Output: Urine 1 Other: Voiding Method Toilet Toilet Diaper Diaper # Voids 1 1 # Bowel Movements 1 - Exam GENERAL DESCRIPTION: Middle-aged female lying in bed in no distress RESPIRATORY SYSTEM: Unlabored breathing , decreased breath sounds at bases HEART: S1 S2 regular rate and rhythm , ABDOMEN: Soft , no tenderness EXTREMITIES: Right heel wound is currently dressed - Labs CBC & Chem 7: 05/21/23 08:10 05/21/23 08:10 Labs: Abnormal Lab Results - Last 24 Hours (Table) 01/22/24 01/22/24 01/22/24 Range/Units 11:52 16:21 19:56 RBC (3.80-5.40) m/uL Hgb (11.4-16.0) gm/dL Hct (34.0-46.0) % MCHC (31.0-37.0) g/dL RDW (11.5-15.5) % Lymphocytes # (1.0-4.8) k/uL Sodium (137-145) mmol/L BUN (7-17) mg/dL Creatinine (0.52-1.04) mg/dL Glucose (74-99) mg/dL POC Glucose (mg/dL) 163 H 119 H 120 H (70-110) mg/dL Calcium (8.4-10.2) mg/dL AST (14-36) U/L ALT (4-34) U/L Alkaline Phosphatase (38-126) U/L Albumin (3.5-5.0) g/dL 05/21/23 05/21/23 05/21/23 Range/Units 05:37 08:10 08:10 RBC 3.68 L (3.80-5.40) m/uL Hgb 9.5 L (11.4-16.0) gm/dL Hct 30.8 L (34.0-46.0) % MCHC 30.8 L (31.0-37.0) g/dL RDW 16.7 H (11.5-15.5) % Lymphocytes # 0.7 L (1.0-4.8) k/uL Sodium 135 L (137-145) mmol/L BUN 33 H (7-17) mg/dL Creatinine 2.12 H (0.52-1.04) mg/dL Glucose 204 H (74-99) mg/dL POC Glucose (mg/dL) 56 L (70-110) mg/dL Calcium 8.1 L (8.4-10.2) mg/dL AST 55 H (14-36) U/L ALT 41 H (4-34) U/L Alkaline Phosphatase 275 H (38-126) U/L Albumin 3.0 L (3.5-5.0) g/dL Microbiology - Last 24 Hours (Table) 05/15/23 11:11 Blood Culture - Final Blood Assessment and Plan (1) Pressure ulcer of right heel, stage 3 Current Visit: No Status: Acute Code(s): L89.613 - PRESSURE ULCER OF RIGHT HEEL, STAGE 3 SNOMED Code(s): 89834879851281 (2) Fever Current Visit: Yes Status: Acute Code(s): R50.9 - FEVER, UNSPECIFIED SNOMED Code(s): 490905465 Plan: 1-patient presented to hospital with fever also complaining of increasing shortness of breath and cough with concern for possible pneumonia versus line infection 2-patient did have right heel wound which seem to be healing well with no evidence of any cellulitis 3-local wound care to the right heel with Aquacel silver dressing change every 48 hour 4-patient did have resolution of her fever and white count is normal the patient blood cultures are negative that will make line related sepsis to be less likely 5- patient did have mostly respiratory symptoms and is bringing up some purulent sputum, concerning for pneumonia also have elevated procalcitonin, sputum has been requested but not collected 6- patient to continue with cefepime and plan to finish therapy with oral Avelox prescription already sent to the pharmacy Dictation was produced using [employer] dictation software. please excuse any grammatical, word or spelling errors. Time with Patient: Less than 30
--- NOTE | 2023-05-22 23:06 | P.PN ---
Subjective Progress Note Date: 05/22/23 Principal diagnosis: Reason for follow-up is fever This is a telehealth visit Patient is a 57-year-old female with a past medical history significant for diabetes mellitus, hypertension right heel diabetic foot wound and cellulitis with recent admission to the hospital local culture positive for Pseudomonas Enterococcus and the patient received 3-week course of IV Zosyn during the hospital stay the patient also developed renal failure requiring dialysis, presenting back to the hospital with worsening shortness of breath and also have a fever. Chest x-ray was suggestive of CHF, CT of the chest small bilateral effusion and cardiomegaly lymphadenopathy scattered throughout. On today's evaluation that is 05/22/2023, the patient is afebrile patient is breathing comfortably on room air without need for supplemental oxygen the patient denies chest pain, the patient did have occasional cough and minimal sputum production patient denies abdominal pain no nausea no vomiting and denies having diarrhea, no new symptoms No new labs were obtained today blood culture has been negative Objective - Vital Signs Vital signs: Vital Signs Temp 97.5 F L 05/22/23 08:00 Pulse 76 05/22/23 08:52 Resp 18 05/22/23 08:00 BP 150/73 05/22/23 08:00 Pulse Ox 94 L 05/22/23 08:43 FiO2 Intake & Output 05/21/23 05/22/23 05/22/23 18:59 06:59 18:59 Intake Total 918 540 240 Output Total 5000 Balance -4082 540 240 Weight 56.2 kg Intake: Oral 118 540 240 Hemodialysis 800 Output: Hemodialysis 5000 Other: Voiding Method Toilet Toilet Toilet Diaper Diaper Diaper # Voids 2 - Exam GENERAL DESCRIPTION: Middle-aged female lying in bed in no distress RESPIRATORY SYSTEM: Unlabored breathing , decreased breath sounds at bases HEART: S1 S2 regular rate and rhythm , ABDOMEN: Soft , no tenderness EXTREMITIES: Right heel wound is currently dressed - Labs CBC & Chem 7: 05/21/23 08:10 05/21/23 08:10 Labs: Abnormal Lab Results - Last 24 Hours (Table) 05/21/23 05/21/23 05/21/23 Range/Units 11:58 16:23 19:48 POC Glucose (mg/dL) 373 H 234 H 285 H (70-110) mg/dL 05/22/23 Range/Units 05:55 POC Glucose (mg/dL) 168 H (70-110) mg/dL Assessment and Plan (1) Pressure ulcer of right heel, stage 3 Current Visit: No Status: Acute Code(s): L89.613 - PRESSURE ULCER OF RIGHT HEEL, STAGE 3 SNOMED Code(s): 67257428077170 (2) Fever Current Visit: Yes Status: Acute Code(s): R50.9 - FEVER, UNSPECIFIED SNOMED Code(s): 621122709 Plan: 1-patient presented to hospital with fever also complaining of increasing shortness of breath and cough with concern for possible pneumonia versus line infection 2-patient did have right heel wound which seem to be healing well with no evidence of any cellulitis 3-local wound care to the right heel with Aquacel silver dressing change every 48 hour 4-patient did have resolution of her fever and white count is normal the patient blood cultures are negative that will make line related sepsis to be less likely 5- patient did have mostly respiratory symptoms and is bringing up some purulent sputum, concerning for pneumonia also have elevated procalcitonin, sputum has been requested but not collected 6- patient to continue with cefepime while inpatient and plan to finish therapy with oral Avelox Dictation was produced using [employer] dictation software. please excuse any grammatical, word or spelling errors. Time with Patient: Less than 30
--- NOTE | 2023-05-23 01:39 | PN ---
PROGRESS NOTE SUBJECTIVE: The patient remains on IV antibiotics, going to switch to oral on discharge. Discussed further treatment, COPD, O2 saturation 95 on room air. OBJECTIVE: VITAL SIGNS: Blood pressure 108 to 132 over 60s, temperature 98.3, pulse 61, and respiratory rate 16 to 18. CARDIOVASCULAR: S1, S2. LUNGS: Transmitted upper sounds. GI: Soft. HEMATOLOGY: Negative for Homans. Continue current home medications. Continue breathing treatments etc., PT OT possible home. She refuses to go the skilled nursing. She wants to go to her house. She is up ambulating, alert and oriented x3 at this time with minimal weakness. MMODL / IJN: [id number] /
[2023-05-23 05:57] LABS: Glucose,Whole Blood 130 mg/dL (70-110)
[2023-05-23 11:24] LABS: Glucose,Whole Blood 124 mg/dL (70-110)
--- NOTE | 2023-05-23 11:29 | P.PN ---
Subjective Patient is seen for follow-up for acute kidney injury currently hemodialysis dependent. Seen on hemodialysis. Tolerating treatment well. No complaints of shortness of breath Urine output remains low. Objective - Vital Signs Vital signs: Vital Signs Temp 97.4 F L 05/23/23 08:19 Pulse 68 05/23/23 08:22 Resp 16 05/23/23 08:20 BP 159/76 05/23/23 08:19 Pulse Ox 95 05/23/23 08:19 FiO2 Intake & Output 05/22/23 05/23/23 05/23/23 18:59 06:59 18:59 Intake Total 1160 120 Balance 1160 120 Intake: Oral 1160 120 Other: Voiding Method Toilet Toilet Toilet Diaper Diaper Diaper # Voids 1 1 - Exam Patient is comfortable awake alert oriented 3 Examination of the heart S1 and S2 Examination the lungs decreased breath sounds at the bases Abdomen is soft nontender Examination of lower extremity shows right heel is wrapped no significant edema noted. BIOMETRICS TECHNICIAN exam is intact - Labs CBC & Chem 7: 05/21/23 08:10 05/21/23 08:10 Labs: Abnormal Lab Results - Last 24 Hours (Table) 05/22/23 05/22/23 05/22/23 Range/Units 11:29 15:59 16:08 POC Glucose (mg/dL) 147 H <20 L 134 H (70-110) mg/dL 05/23/23 05/23/23 Range/Units 05:55 11:23 POC Glucose (mg/dL) 130 H 124 H (70-110) mg/dL Assessment and Plan Assessment: 1. Acute kidney injury secondary to ATN secondary to cardiorenal syndrome. Started on hemodialysis 05/07/2023 due to severe volume overload and low urine output. Has permacath. Maintained on Saturday schedule 2. Acute on chronic systolic CHF with ejection fraction of 40-45% with severe pulmonary hypertension. 3. Anemia. Iron deficiency noted. Receiving IV iron. On Aranesp. 4. Volume overload. Improved with ultrafiltration. 5. Diabetes mellitus. 6. Right heel cellulitis on antibiotics. Plan: Patient can be discharged post hemodialysis. Continue with torsemide
[2023-05-23 15:19] LABS: Glucose,Whole Blood 237 mg/dL (70-110)
[2023-05-23 16:55] LABS: Glucose,Whole Blood 234 mg/dL (70-110)
[2023-05-23] MEDS: INSULIN ASPART (NovoLOG) 100 UNIT/ML VIAL SQ SCH (17:31)
[2023-05-23 20:37] LABS: Glucose,Whole Blood 234 mg/dL (70-110)
--- NOTE | 2023-05-23 23:58 | PN ---
PROGRESS NOTE SUBJECTIVE: This is a 57-year-old. Acute kidney injury, currently hemodynamic dependent, seen on dialysis, tolerating treatment well. No shortness of breath. Urine and bowel output is kind of low. Blood pressure is 150s over 70s, O2 95, pulse 68, respiratory rate 16 to 18, BUN 33, creatinine 2.12, which is not too bad. She had low blood sugars. We cut her Lasix down to just regular 2 units with her meals. Ejection fraction 40% to 45%, severe pulmonary hypertension, anemia, fluid overload, on dialysis. Post dialysis she can go, so she is set up with dialysis center and get her discharged. PROGNOSIS: Guarded. MMODL / IJN: [id number] /
--- NOTE | 2023-05-24 02:41 | P.PN ---
Subjective Progress Note Date: 05/23/23 Principal diagnosis: Reason for follow-up is fever This is a telehealth visit Patient is a 57-year-old female with a past medical history significant for diabetes mellitus, hypertension right heel diabetic foot wound and cellulitis with recent admission to the hospital local culture positive for Pseudomonas Enterococcus and the patient received 3-week course of IV Zosyn during the hospital stay the patient also developed renal failure requiring dialysis, presenting back to the hospital with worsening shortness of breath and also have a fever. Chest x-ray was suggestive of CHF, CT of the chest small bilateral effusion and cardiomegaly lymphadenopathy scattered throughout. On today's evaluation that is 05/23/2023 patient remains to be afebrile, the patient is breathing comfortably and is currently on room air, the patient denies having any chest pain no significant cough or sputum production patient denies having abdominal pain no nausea no vomiting and no diarrhea has been reported.. No new labs has been obtained today culture has been negative Objective - Vital Signs Vital signs: Vital Signs Temp 98.3 F 05/23/23 18:40 Pulse 72 05/23/23 20:09 Resp 14 05/23/23 19:45 BP 106/54 05/23/23 18:40 Pulse Ox 92 L 05/23/23 18:40 FiO2 Intake & Output 05/23/23 05/23/23 05/24/23 06:59 18:59 06:59 Intake Total 120 760 240 Output Total 2400 Balance 120 -1640 240 Intake: Oral 120 360 240 Hemodialysis 400 Output: Hemodialysis 2400 Other: Voiding Method Toilet Toilet Diaper Diaper # Voids 1 - Exam GENERAL DESCRIPTION: Middle-aged female lying in bed in no distress RESPIRATORY SYSTEM: Unlabored breathing , decreased breath sounds at bases HEART: S1 S2 regular rate and rhythm , ABDOMEN: Soft , no tenderness EXTREMITIES: Right heel wound is currently dressed - Labs CBC & Chem 7: 05/21/23 08:10 05/21/23 08:10 Labs: Abnormal Lab Results - Last 24 Hours (Table) 05/23/23 05/23/23 05/23/23 Range/Units 05:55 11:23 15:17 POC Glucose (mg/dL) 130 H 124 H 237 H (70-110) mg/dL 05/23/23 05/23/23 Range/Units 16:51 20:33 POC Glucose (mg/dL) 234 H 234 H (70-110) mg/dL Assessment and Plan (1) Pressure ulcer of right heel, stage 3 Current Visit: No Status: Acute Code(s): L89.613 - PRESSURE ULCER OF RIGHT HEEL, STAGE 3 SNOMED Code(s): 51350502558807 (2) Fever Current Visit: Yes Status: Acute Code(s): R50.9 - FEVER, UNSPECIFIED SNOMED Code(s): 362780640 Plan: 1-patient presented to hospital with fever also complaining of increasing shortness of breath and cough with concern for possible pneumonia versus line infection 2-patient did have right heel wound which seem to be healing well with no evidence of any cellulitis 3-local wound care to the right heel with Aquacel silver dressing change every 48 hour 4-patient did have resolution of her fever and white count is normal the patient blood cultures are negative that will make line related sepsis to be less likely, hence daptomycin was discontinued 5- patient did have mostly respiratory symptoms and is bringing up some purulent sputum, concerning for pneumonia also have elevated procalcitonin, sputum has been requested but not collected 6- patient remains to be afebrile, patient did have a normal white count, to continue with cefepime while inpatient and plan to finish therapy with oral Avelox Dictation was produced using [employer] dictation software. please excuse any grammatical, word or spelling errors.
[2023-05-24 10:48] LABS: Anisocytosis Slight; Basophils % (A) 1 %; Eosinophils # (A) 0.1 k/uL (0-0.7); Eosinophils % (A) 2 %; HCT 34.5 % (34.0-46.0); HGB 10.6 gm/dL (11.4-16.0); Hypochromasia Marked; Lymphocytes # (A) 0.9 k/uL (1.0-4.8); Lymphocytes % (A) 14 %; MCH 25.6 pg (25.0-35.0); MCHC 30.8 g/dL (31.0-37.0); Mean Platelet Volume 8.5; Monocytes # (A) 0.3 k/uL (0-1.0); Monocytes % (A) 5 %; Neutrophils # (A) 4.7 k/uL (1.3-7.7); Neutrophils % (A) 75 %; Platelet Count 373 k/uL (150-450); RBC 4.15 m/uL (3.80-5.40); WBC 6.2 k/uL (3.8-10.6)
[2023-05-24 11:08] LABS: ALT 29 U/L (4-34); AST 27 U/L (14-36); African American GFR (CKD) 35 (>60 ml/min/1.73 sqM); Albumin 3.2 g/dL (3.5-5.0); Alkaline Phosphatase 253 U/L (38-126); Anion Gap 6 mmol/L; Blood Urea Nitrogen 16 mg/dL (7-17); Calcium 8.4 mg/dL (8.4-10.2); Carbon Dioxide 29 mmol/L (22-30); Chloride 101 mmol/L (98-107); Glucose 190 mg/dL (74-99); Non-African American GFR(CKD) 30 (>60 ml/min/1.73 sqM); Potassium 3.8 mmol/L (3.5-5.1); Sodium 136 mmol/L (137-145); Total Bilirubin 0.7 mg/dL (0.2-1.3)
--- NOTE | 2023-05-24 11:35 | CDI ---
Documentation Clarification Form Date: 05/24/2023 10:37:54 AM From: Chelle Dean RN CCDS Phone: [phone] Admit Date: 05/13/2023 02:23:00 PM Patient Name: Chelle Lin Visit Number: [id number] Discharge Date: ATTENTION: The Clinical Documentation Specialists (CDI) and [facility] Coding Staff appreciate your assistance in clarifying documentation. Please respond to the clarification below the line at the bottom and electronically sign. The CDI & [facility] Coding staff will review the response and follow-up if needed. Please note: Queries are made part of the Legal Health Record. If you have any questions, please contact the author of this message via ITS. Dr. Shawnee Subramanian MD Your patient is receiving the following antibiotics: Azithromycin, Rocephin, Cefepime and Daptomycin, treatment dates are below under treatment. Please clarify what condition/diagnosis is being treated. History/Risk Factors:57-year old female presents to the ED increasing shortness of breath that has been getting worse over the last day or two. The patient was recently discharged for treatment of a right heel diabetic foot wound with cellulitis: culture positive for pseudomonas Enterococcus. The patient was on three week course IV Zosyn. Medical history: HTN, DM, right heel diabetic foot wound, DM2 and kidney disease. 05/13, ID note. Clinical indicators: 05/13: 10:42 VSS:BP 172/92; HR 88; Temp 100.1 F Oral; RR 18; SpO2 92% 2L nasal cannula 05/14: 04:01 VVS: BP 125/71; HR 88; Temp 101.2 F Oral; RR 18; SpO2 96% 4L nasal cannula 05/13: CXR: Findings suggestive of CHF 05/13: CT Chest: Small bilateral pleural effusions with anasarca and cardiomegaly. Lymphadenopathy scattered throughout which could be secondary to third spacing of fluid. LABS, 05/13: Wbc 9.1; Hgb 10.5; Neutrophils 7.9; Procalcitonin 0.10 05/14: BNP 61388; CRP 4.4 Blood Cultures drawn on: 05/13, 05/14 and 05/15 with no growth after five days Pulmonary consult, 05/14: Acute febrile illness, under investigation for now. The patient is currently on Rocephin. Cultures still pending. Pneumonia doubtful. ID Note, 05/19: patient did have mostly respiratory symptoms and is bringing up some purulent sputum, concerning for pneumonia also have elevated procalcitonin, patient to continue with cefepime and try to obtain a sputum to narrow down her antibiotics Treatment: 05/13 Tylenol 1,000mg PO x 1; Motrin 600mg PO x 1; Antibiotics 05/13 Azithromcyin 500mg po x 1; Azithromcyin 250mg PO Daily x 4 doses; 05/13 05/15 Rocephin 1gm IVPB Q24H 05/15 05/17 Cefepime 2gm IVPB Q12H; 05/17 Cefepime 1gm IVPB Q12HR ; 05/15 05/18 Daptomycin 400mg IVPB Q24HR RYLIE What diagnosis are you treating with Cefepime? [ ] Sepsis, secondary to Pneumonia [ ] Sepsis secondary to Right heel diabetic foot wound [ x ] Pneumonia [ ] Right heel diabetic foot wound [ ] Other, please specify [ ] Unable to determine (Template Last Reviewed: May 2020) KENYON
[2023-05-24 11:40] LABS: Glucose,Whole Blood 190 mg/dL (70-110)
[2023-05-24 16:25] LABS: Glucose,Whole Blood 246 mg/dL (70-110)
[2023-05-24 16:44] LABS: Glucose,Whole Blood 132 mg/dL (70-110)
--- NOTE | 2023-05-24 19:13 | P.PN ---
Subjective Patient is seen for follow-up for acute kidney injury currently hemodialysis dependent. Scheduled for hemodialysis in a.m. No complaints of shortness of breath Urine output remains low. Objective - Vital Signs Vital signs: Vital Signs Temp 97.4 F L 05/24/23 17:00 Pulse 75 05/24/23 17:11 Resp 14 05/24/23 17:00 BP 146/65 05/24/23 17:00 Pulse Ox 96 05/24/23 17:05 FiO2 Intake & Output 05/24/23 05/24/23 05/25/23 06:59 18:59 06:59 Intake Total 240 118 Output Total 118 Balance 240 0 Weight 56 kg Intake: Oral 240 118 Output: Urine 118 Other: Voiding Method Toilet Toilet # Voids 1 2 # Bowel Movements 1 - Exam Patient is comfortable awake alert oriented 3 Examination of the heart S1 and S2 Examination the lungs decreased breath sounds at the bases Abdomen is soft nontender Examination of lower extremity shows right heel is wrapped no significant edema noted. RV REPAIR TECHNICIAN exam is intact - Labs CBC & Chem 7: 05/24/23 10:12 05/24/23 10:12 Labs: Abnormal Lab Results - Last 24 Hours (Table) 05/23/23 05/24/23 05/24/23 Range/Units 20:33 05:55 10:12 Hgb 10.6 L (11.4-16.0) gm/dL MCHC 30.8 L (31.0-37.0) g/dL RDW 17.0 H (11.5-15.5) % Lymphocytes # 0.9 L (1.0-4.8) k/uL Sodium (137-145) mmol/L Creatinine (0.52-1.04) mg/dL Glucose (74-99) mg/dL POC Glucose (mg/dL) 234 H 132 H (70-110) mg/dL Alkaline Phosphatase (38-126) U/L Albumin (3.5-5.0) g/dL 05/24/23 05/24/23 05/24/23 Range/Units 10:12 11:39 16:24 Hgb (11.4-16.0) gm/dL MCHC (31.0-37.0) g/dL RDW (11.5-15.5) % Lymphocytes # (1.0-4.8) k/uL Sodium 136 L (137-145) mmol/L Creatinine 1.83 H (0.52-1.04) mg/dL Glucose 190 H (74-99) mg/dL POC Glucose (mg/dL) 190 H 246 H (70-110) mg/dL Alkaline Phosphatase 253 H (38-126) U/L Albumin 3.2 L (3.5-5.0) g/dL Assessment and Plan Assessment: 1. Acute kidney injury secondary to ATN secondary to cardiorenal syndrome. Started on hemodialysis 05/07/2023 due to severe volume overload and low urine output. Has permacath. Maintained on Saturday schedule 2. Acute on chronic systolic CHF with ejection fraction of 40-45% with severe pulmonary hypertension. 3. Anemia. Iron deficiency noted. Receiving IV iron. On Aranesp. 4. Volume overload. Improved with ultrafiltration. 5. Diabetes mellitus. 6. Right heel cellulitis on antibiotics. Plan: Hemodialysis in a.m. Continue with torsemide
[2023-05-24 20:00] LABS: Glucose,Whole Blood 229 mg/dL (70-110)
--- NOTE | 2023-05-24 20:40 | PN ---
PROGRESS NOTE SUBJECTIVE: Remains afebrile, breathing comfortably on room air. Denies any chest pain, shortness of breath, abdominal pain. No nausea or vomiting. OBJECTIVE: VITAL SIGNS: Blood pressure is 106/54, pulse is 92, pulse 70 to 72, respiratory rate 14 to 16, temp 93. HEENT: Normocephalic, atraumatic. LUNGS: Unlabored breathing. Decreased breath sounds at bases. HEART: S1, S2. ABDOMEN: Soft. EXTREMITIES: Diabetic wound on the foot is healed. BUN 33, creatinine is 2.12, hemoglobin is 11.5. LABORATORY DATA: BUN is 33, creatinine 2.12, fever, shortness of breath. Possible pneumonia versus PICC line infection on admission, Novolin 70, cellulitis Aquacel Silver to the heels. Position of the fever and white count. Blood culture negative, sepsis likely in her stools for pneumonia elevated procalcitonin. Check to sputum. Continue cefepime while inpatient. Switched to oral Avelox. Hopefully discharge home soon. She has a pressure ulcer right heel, stage III. Possibly an offloading boot on discharge. Diabetes under better control, sugars 200 to 300. MMODL / IJN: [id number] /
--- NOTE | 2023-05-24 22:02 | P.PN ---
Subjective Progress Note Date: 05/24/23 Principal diagnosis: Reason for follow-up is fever This is a telehealth visit Patient is a 57-year-old female with a past medical history significant for diabetes mellitus, hypertension right heel diabetic foot wound and cellulitis with recent admission to the hospital local culture positive for Pseudomonas Enterococcus and the patient received 3-week course of IV Zosyn during the hospital stay the patient also developed renal failure requiring dialysis, presenting back to the hospital with worsening shortness of breath and also have a fever. Chest x-ray was suggestive of CHF, CT of the chest small bilateral effusion and cardiomegaly lymphadenopathy scattered throughout. On today's evaluation that is 05/24/2023, the patient is afebrile, the patient is breathing comfortably on 2 L nasal cannula oxygen, the patient denies having any shortness of breath chest pain did have a cough mild to moderate occasional sputum,Patient denies having any abdominal pain no nausea vomiting or any diarrhea. Patient did have white count of 6.2, creatinine is 1.83 Objective - Vital Signs Vital signs: Vital Signs Temp 98.1 F 05/24/23 07:45 Pulse 74 05/24/23 08:33 Resp 16 05/24/23 08:33 BP 138/71 05/24/23 07:45 Pulse Ox 95 05/24/23 07:45 FiO2 Intake & Output 05/23/23 05/24/23 05/24/23 18:59 06:59 18:59 Intake Total 760 240 118 Output Total 2400 118 Balance -1640 240 0 Weight 56 kg Intake: Oral 360 240 118 Hemodialysis 400 Output: Urine 118 Hemodialysis 2400 Other: Voiding Method Toilet Toilet Toilet Diaper # Voids 1 1 # Bowel Movements 1 - Exam GENERAL DESCRIPTION: Middle-aged female lying in bed in no distress RESPIRATORY SYSTEM: Unlabored breathing , decreased breath sounds at bases HEART: S1 S2 regular rate and rhythm , ABDOMEN: Soft , no tenderness EXTREMITIES: Right heel wound is currently dressed - Labs CBC & Chem 7: 05/24/23 10:12 05/24/23 10:12 Labs: Abnormal Lab Results - Last 24 Hours (Table) 05/23/23 05/23/23 05/23/23 Range/Units 11:23 15:17 16:51 POC Glucose (mg/dL) 124 H 237 H 234 H (70-110) mg/dL 05/23/23 Range/Units 20:33 POC Glucose (mg/dL) 234 H (70-110) mg/dL Assessment and Plan (1) Pressure ulcer of right heel, stage 3 Current Visit: No Status: Acute Code(s): L89.613 - PRESSURE ULCER OF RIGHT HEEL, STAGE 3 SNOMED Code(s): 52052864511509 (2) Fever Current Visit: Yes Status: Acute Code(s): R50.9 - FEVER, UNSPECIFIED SNOMED Code(s): 169279379 Plan: 1-patient presented to hospital with fever also complaining of increasing shortness of breath and cough with concern for possible pneumonia versus line infection 2-patient did have right heel wound which seem to be healing well with no evidence of any cellulitis 3-local wound care to the right heel with Aquacel silver dressing change every 48 hour 4-patient did have resolution of her fever and white count is normal the patient blood cultures are negative that will make line related sepsis to be less likely, hence daptomycin was discontinued 5- patient did have mostly respiratory symptoms and is bringing up some purulent sputum, concerning for pneumonia also have elevated procalcitonin, sputum has been requested but not collected 6- patient remains to be afebrile, patient did have a normal white count 7-patient to continue with cefepime while inpatient however patient will be able to finish therapy with oral Avelox on discharge Dictation was produced using [employer] dictation software. please excuse any grammatical, word or spelling errors. Time with Patient: Less than 30
[2023-05-25 07:32] LABS: Glucose,Whole Blood 161 mg/dL (70-110)
[2023-05-25] MEDS: ISOSORBIDE MONONITRATE ER 30 MG TAB.ER.24H PO SCH (08:54)
--- NOTE | 2023-05-25 11:47 | P.PN ---
Subjective Patient is seen for follow-up for acute kidney injury currently hemodialysis dependent. Seen on hemodialysis. Tolerating treatment well No complaints of shortness of breath Urine output remains low. About 1 cup for 24 hours per patient. Objective - Vital Signs Vital signs: Vital Signs Temp 97.4 F L 05/25/23 07:23 Pulse 72 05/25/23 08:21 Resp 16 05/25/23 07:23 BP 160/80 05/25/23 07:23 Pulse Ox 93 L 05/25/23 07:23 FiO2 Intake & Output 05/24/23 05/25/23 05/25/23 18:59 06:59 18:59 Intake Total 118 500 Output Total 118 Balance 0 500 Weight 53.3 kg Intake: Oral 118 500 Output: Urine 118 Other: Voiding Method Toilet Toilet # Voids 2 1 - Exam Patient is comfortable awake alert oriented 3 Examination of the heart S1 and S2 Examination the lungs decreased breath sounds at the bases Abdomen is soft nontender Examination of lower extremity shows right heel is wrapped no significant edema noted. 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 Acute kidney injury secondary to ATN secondary to cardiorenal syndrome. Started on hemodialysis 05/07/2023 due to severe volume overload and low urine output. Has permacath. Maintained on Saturday schedule 2. Acute on chronic systolic CHF with ejection fraction of 40-45% with severe pulmonary hypertension. 3. Anemia. Iron deficiency noted. Receiving IV iron. On Aranesp. 4. Volume overload. Improved with ultrafiltration. 5. Diabetes mellitus. 6. Right heel cellulitis on antibiotics. Plan: Hemodialysis in a.m. Continue with torsemide
[2023-05-25 11:56] LABS: Glucose,Whole Blood 196 mg/dL (70-110)
--- NOTE | 2023-05-25 16:21 | P.PN ---
Subjective Progress Note Date: 05/25/23 Principal diagnosis: Reason for follow-up is fever This is a telehealth visit Patient is a 57-year-old female with a past medical history significant for diabetes mellitus, hypertension right heel diabetic foot wound and cellulitis with recent admission to the hospital local culture positive for Pseudomonas Enterococcus and the patient received 3-week course of IV Zosyn during the hospital stay the patient also developed renal failure requiring dialysis, presenting back to the hospital with worsening shortness of breath and also have a fever. Chest x-ray was suggestive of CHF, CT of the chest small bilateral effusion and cardiomegaly lymphadenopathy scattered throughout. On today's evaluation that is 05/25/2023, the patient remians to be afebrile, the patient is breathing comfortably on 2 L nasal cannula oxygen, the patient denies having any shortness of breath, chest pain, Pt did have a cough mild to moderate occasional sputum,Patient denies having any abdominal pain no nausea vomiting or any diarrhea.no new symptoms Patient did have white count of 6.2, creatinine is 1.83 as of 05/24/23 Objective - Vital Signs Vital signs: Vital Signs Temp 97.4 F L 05/25/23 07:23 Pulse 72 05/25/23 08:21 Resp 16 05/25/23 07:23 BP 160/80 05/25/23 07:23 Pulse Ox 93 L 05/25/23 07:23 FiO2 Intake & Output 05/24/23 05/25/23 05/25/23 18:59 06:59 18:59 Intake Total 118 500 Output Total 118 Balance 0 500 Weight 53.3 kg Intake: Oral 118 500 Output: Urine 118 Other: Voiding Method Toilet Toilet # Voids 2 1 - Exam GENERAL DESCRIPTION: Middle-aged female lying in bed in no distress RESPIRATORY SYSTEM: Unlabored breathing , decreased breath sounds at bases HEART: S1 S2 regular rate and rhythm , ABDOMEN: Soft , no tenderness EXTREMITIES: Right heel wound is currently dressed - Labs CBC & Chem 7: 05/24/23 10:12 05/24/23 10:12 Labs: Abnormal Lab Results - Last 24 Hours (Table) 05/24/23 05/24/23 05/24/23 Range/Units 05:55 10:12 10:12 Hgb 10.6 L (11.4-16.0) gm/dL MCHC 30.8 L (31.0-37.0) g/dL RDW 17.0 H (11.5-15.5) % Lymphocytes # 0.9 L (1.0-4.8) k/uL Sodium 136 L (137-145) mmol/L Creatinine 1.83 H (0.52-1.04) mg/dL Glucose 190 H (74-99) mg/dL POC Glucose (mg/dL) 132 H (70-110) mg/dL Alkaline Phosphatase 253 H (38-126) U/L Albumin 3.2 L (3.5-5.0) g/dL 05/24/23 05/24/23 05/24/23 Range/Units 11:39 16:24 19:59 Hgb (11.4-16.0) gm/dL MCHC (31.0-37.0) g/dL RDW (11.5-15.5) % Lymphocytes # (1.0-4.8) k/uL Sodium (137-145) mmol/L Creatinine (0.52-1.04) mg/dL Glucose (74-99) mg/dL POC Glucose (mg/dL) 190 H 246 H 229 H (70-110) mg/dL Alkaline Phosphatase (38-126) U/L Albumin (3.5-5.0) g/dL 05/25/23 Range/Units 07:31 Hgb (11.4-16.0) gm/dL MCHC (31.0-37.0) g/dL RDW (11.5-15.5) % Lymphocytes # (1.0-4.8) k/uL Sodium (137-145) mmol/L Creatinine (0.52-1.04) mg/dL Glucose (74-99) mg/dL POC Glucose (mg/dL) 161 H (70-110) mg/dL Alkaline Phosphatase (38-126) U/L Albumin (3.5-5.0) g/dL Assessment and Plan (1) Pressure ulcer of right heel, stage 3 Current Visit: No Status: Acute Code(s): L89.613 - PRESSURE ULCER OF RIGHT HEEL, STAGE 3 SNOMED Code(s): 98759757285919 (2) Fever Current Visit: Yes Status: Acute Code(s): R50.9 - FEVER, UNSPECIFIED SNOMED Code(s): 995440095 Plan: 1-patient presented to hospital with fever also complaining of increasing shortness of breath and cough with concern for possible pneumonia versus line infection 2-patient did have right heel wound which seem to be healing well with no evidence of any cellulitis 3-local wound care to the right heel with Aquacel silver dressing change every 48 hour 4-patient did have resolution of her fever and white count is normal the patient blood cultures are negative that will make line related sepsis to be less likely, hence daptomycin was discontinued 5- patient did have mostly respiratory symptoms and is bringing up some purulent sputum, concerning for pneumonia also have elevated procalcitonin, sputum has been requested but not collected 6- patient remains to be afebrile, patient did have a normal white count 7-patient covered with cefepime with a plan to finish therapy with oral Avelox on discharge Dictation was produced using [employer] dictation software. please excuse any grammatical, word or spelling errors. Time with Patient: Less than 30
[2023-05-25 17:08] LABS: Glucose,Whole Blood 289 mg/dL (70-110)
[2023-05-25 20:32] LABS: Amorphous Sediment,Urine Rare /hpf; Appearance,Urine Clear (Clear); Bacteria,Urine Rare /hpf; Bilirubin,Urine Negative (Negative); Blood,Urine Negative (Negative); Color,Urine Light Yellow; Glucose,Urine (UA) 4+ (Negative); Hyaline Casts,Urine 7 /lpf (0-2); Ketones,Urine Negative (Negative); Leukocyte Esterase,Urine Negative (Negative); Mucus,Urine Rare /hpf; Nitrite,Urine Negative (Negative); Protein,Urine 2+ (Negative); RBC,Urine 1 /hpf (0-5); Specific Gravity,Urine 1.007 (1.001-1.035); Squamous Epithelial Cell,Urine 1 /hpf (0-4); Urobilinogen,Urine <2.0 mg/dL (<2.0); WBC,Urine 2 /hpf (0-5)
[2023-05-25 20:47] LABS: Glucose,Whole Blood 274 mg/dL (70-110)
--- NOTE | 2023-05-26 05:37 | PN ---
PROGRESS NOTE SUBJECTIVE: She remains on neuropathy medicine, IV ferritin for anemia, , Aranesp for anemia, Farxiga for diabetes, cefepime for pneumonia. She is going to switch to oral antibiotics on discharge. DuoNeb q.i.d., Pulmicort b.i.d., Zoloft for depression, for CHF, acute on chronic diastolic, Imdur for coronary artery disease, Apresoline, NovoLog. OBJECTIVE: VITAL SIGNS: Temperature 97.4, blood pressure 105/58, O2 of 96% on room air, pulse 70, respiratory rate is 15 to 16. GENERAL: Thin, cachectic. CARDIOVASCULAR: S1 and S2. LUNGS: Transmitted upper sounds. GI: Soft, nontender. HEMATOLOGY: Negative Homans. LABORATORY DATA: Blood cultures are negative. ASSESSMENT AND PLAN: She has wounds to her extremities. She is on antibiotics. She is wearing oxygen. She is doing breathing treatments. Prognosis is guarded. Please see further orders. Sugars in the 200s. She appears to be doing , possibly will go home once cleared by Nephrology and Infectious Disease. MMODL / IJN: [id number] /
[2023-05-26 05:48] LABS: Glucose,Whole Blood 213 mg/dL (70-110)
[2023-05-26 11:02] LABS: Basophils # (A) 0.07 X 10*3/uL (0.00-0.10); Basophils % (A) 1.1 %; Eosinophils # (A) 0.19 X 10*3/uL (0.04-0.35); HCT 36.4 % (37.2-46.3); Lymphocytes # (A) 0.89 X 10*3/uL (0.90-5.00); Lymphocytes % (A) 14.2 %; MCH 24.9 pg (27.0-32.0); MCHC 30.2 g/dL (32.0-37.0); MCV 82.5 FL (80.0-97.0); Mean Platelet Volume 10.6 FL (9.5-12.2); Monocytes # (A) 0.81 X 10*3/uL (0.20-1.00); Monocytes % (A) 12.9 %; NRBC Per 100 WBC 0 X 10*3/uL (0.00-0.01); Neutrophils # (A) 4.21 X 10*3/uL (1.80-7.70); Platelet Count 454 X 10*3/uL (140-440); RBC 4.41 X 10*6/uL (4.10-5.20); RDW 17.7 % (11.5-14.5); WBC 6.28 X 10*3/uL (4.50-10.00)
--- NOTE | 2023-05-26 11:37 | P.PN ---
Subjective Patient is seen for follow-up for acute kidney injury currently hemodialysis dependent. No complaints of shortness of breath Urine output appears to have increased although patient states that she is voiding about 1 to 1-1/2 cup/day. Objective - Vital Signs Vital signs: Vital Signs Temp 97.4 F L 05/26/23 07:32 Pulse 76 05/26/23 09:42 Resp 15 05/26/23 07:32 BP 127/69 05/26/23 07:32 Pulse Ox 93 L 05/26/23 07:32 FiO2 Intake & Output 05/25/23 05/26/23 05/26/23 18:59 06:59 18:59 Intake Total 400 Output Total 2700 800 Balance -2300 -800 Weight 51.1 kg Intake: Hemodialysis 400 Output: Urine 300 800 Hemodialysis 2400 Other: Voiding Method Toilet # Voids 1 - Exam Patient is comfortable awake alert oriented 3 Examination of the heart S1 and S2 Examination the lungs decreased breath sounds at the bases Abdomen is soft nontender Examination of lower extremity shows right heel is wrapped no significant edema noted. 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 - Labs CBC & Chem 7: 05/26/23 06:32 05/24/23 10:12 Labs: Abnormal Lab Results - Last 24 Hours (Table) 05/25/23 05/25/23 05/25/23 Range/Units 11:54 17:06 19:28 Hgb (12.0-15.0) g/dL Hct (37.2-46.3) % MCH (27.0-32.0) pg MCHC (32.0-37.0) g/dL RDW (11.5-14.5) % Plt Count (140-440) X 10*3/uL Immature Gran # (0.00-0.04) X 10*3/uL Lymphocytes # (0.90-5.00) X 10*3/uL POC Glucose (mg/dL) 196 H 289 H (70-110) mg/dL Urine Protein 2+ H (Negative) Urine Glucose (UA) 4+ H (Negative) Amorphous Sediment Rare H (None) /hpf Urine Bacteria Rare H (None) /hpf Hyaline Casts 7 H (0-2) /lpf Urine Mucus Rare H (None) /hpf 05/25/23 05/26/23 05/26/23 Range/Units 20:44 05:47 06:32 Hgb 11.0 L (12.0-15.0) g/dL Hct 36.4 L (37.2-46.3) % MCH 24.9 L (27.0-32.0) pg MCHC 30.2 L (32.0-37.0) g/dL RDW 17.7 H (11.5-14.5) % Plt Count 454 H (140-440) X 10*3/uL Immature Gran # 0.11 H (0.00-0.04) X 10*3/uL Lymphocytes # 0.89 L (0.90-5.00) X 10*3/uL POC Glucose (mg/dL) 274 H 213 H (70-110) mg/dL Urine Protein (Negative) Urine Glucose (UA) (Negative) Amorphous Sediment (None) /hpf Urine Bacteria (None) /hpf Hyaline Casts (0-2) /lpf Urine Mucus (None) /hpf Assessment and Plan Assessment: 1. Acute kidney injury secondary to ATN secondary to cardiorenal syndrome. Started on hemodialysis 05/07/2023 due to severe volume overload and low urine output. Has permacath. Maintained on Saturday schedule 2. Acute on chronic systolic CHF with ejection fraction of 40-45% with severe pulmonary hypertension. 3. Anemia. Iron deficiency noted. Receiving IV iron. On Aranesp. 4. Volume overload. Improved with ultrafiltration. 5. Diabetes mellitus. 6. Right heel cellulitis on antibiotics. Plan: Hemodialysis on TTS schedule Continue with torsemide Continue to monitor for improvement in renal recovery
[2023-05-26 11:59] LABS: ALT 27 U/L (8-44); AST 25 U/L (13-35); Albumin 3.4 g/dL (3.8-4.9); Albumin/Globulin Ratio 0.92 Ratio (1.60-3.17); Alkaline Phosphatase 235 U/L (41-126); BUN/Creat Ratio 8.82 Ratio (12.00-20.00); Carbon Dioxide 25.4 mmol/L (21.6-31.8); Chloride 102 mmol/L (96-109); Globulin 3.7 g/dL (1.6-3.3); Glucose 217 mg/dL (70-110); Potassium 3.8 mmol/L (3.5-5.5); Sodium 140 mmol/L (135-145); Total Bilirubin 0.4 mg/dL (0.3-1.2); Total Protein 7.1 g/dL (6.2-8.2)
[2023-05-26 12:17] LABS: Glucose,Whole Blood 355 mg/dL (70-110)
[2023-05-26 17:07] LABS: Glucose,Whole Blood 224 mg/dL (70-110)
--- NOTE | 2023-05-26 17:58 | PN ---
PROGRESS NOTE A 57-year-old white female, who is on Apresoline for hypertension, Farxiga for diabetes, cefepime for infection, Lipitor for cholesterol, DuoNeb and Pulmicort for breathing, Imdur for coronary artery disease, Requip for restless legs syndrome, Zoloft for depression, CHF, acute on chronic diastolic. Discussed the case with Dr. Nunez about dialysis. If she has increased urine output, we can maybe hold off on dialysis in the future. The creatinine is down to 1.7 with an estimated GFR of 35, which is fairly good. Are 200s to 300s . Liver enzymes are normal doing a 24-hour urine collection to see how much urine volume there is and see how good her urine output is. Please see further orders. MMODL / IJN: [id number] /
[2023-05-26 20:41] LABS: Glucose,Whole Blood 306 mg/dL (70-110)
[2023-05-27 07:28] LABS: Glucose,Whole Blood 216 mg/dL (70-110)
[2023-05-27] MEDS: DAPAGLIFLOZIN PROPANEDIOL 10 MG TABLET PO SCH (08:36)
--- NOTE | 2023-05-27 09:08 | P.PN ---
Subjective Patient is seen in follow-up for acute kidney injury, hemodialysis dependent. Resting in bed. On room air. Vital signs are stable. General: No acute distress. HEENT: Head exam is unremarkable. LUNGS: No audible rhonchi or wheezes. HEART: Rate and Rhythm are regular. ABDOMEN: Nontender. EXTREMITITES: No edema. Objective - Vital Signs Vital signs: Vital Signs Temp 97.5 F L 05/27/23 07:25 Pulse 76 05/27/23 08:33 Resp 16 05/27/23 07:25 BP 157/74 05/27/23 07:25 Pulse Ox 94 L 05/27/23 07:25 FiO2 Intake & Output 05/26/23 05/27/23 05/27/23 18:59 06:59 18:59 Output Total 650 300 Balance -650 -300 Weight 51.1 kg Output: Urine 650 300 Other: Voiding Method Toilet # Bowel Movements 1 - Labs CBC & Chem 7: 05/26/23 06:32 05/26/23 06:32 Labs: Abnormal Lab Results - Last 24 Hours (Table) 05/26/23 05/26/23 05/26/23 Range/Units 06:32 06:32 12:07 Hgb 11.0 L (12.0-15.0) g/dL Hct 36.4 L (37.2-46.3) % MCH 24.9 L (27.0-32.0) pg MCHC 30.2 L (32.0-37.0) g/dL RDW 17.7 H (11.5-14.5) % Plt Count 454 H (140-440) X 10*3/uL Immature Gran # 0.11 H (0.00-0.04) X 10*3/uL Lymphocytes # 0.89 L (0.90-5.00) X 10*3/uL Anion Gap 12.60 H (4.00-12.00) mmol/L Creatinine 1.7 H (0.6-1.5) mg/dL Est GFR (CKD-EPI) 35 L (>=60) BUN/Creatinine Ratio 8.82 L (12.00-20.00) Ratio Glucose 217 H (70-110) mg/dL POC Glucose (mg/dL) 355 H (70-110) mg/dL Alkaline Phosphatase 235 H (41-126) U/L Albumin 3.4 L (3.8-4.9) g/dL Globulin 3.7 H (1.6-3.3) g/dL Albumin/Globulin Ratio 0.92 L (1.60-3.17) Ratio 05/26/23 05/26/23 05/27/23 Range/Units 17:04 20:39 07:27 Hgb (12.0-15.0) g/dL Hct (37.2-46.3) % MCH (27.0-32.0) pg MCHC (32.0-37.0) g/dL RDW (11.5-14.5) % Plt Count (140-440) X 10*3/uL Immature Gran # (0.00-0.04) X 10*3/uL Lymphocytes # (0.90-5.00) X 10*3/uL Anion Gap (4.00-12.00) mmol/L Creatinine (0.6-1.5) mg/dL Est GFR (CKD-EPI) (>=60) BUN/Creatinine Ratio (12.00-20.00) Ratio Glucose (70-110) mg/dL POC Glucose (mg/dL) 224 H 306 H 216 H (70-110) mg/dL Alkaline Phosphatase (41-126) U/L Albumin (3.8-4.9) g/dL Globulin (1.6-3.3) g/dL Albumin/Globulin Ratio (1.60-3.17) Ratio Assessment and Plan Plan: Assessment: 1. Acute kidney injury secondary to ATN secondary to cardiorenal syndrome. Started on hemodialysis 05/07/2023 due to severe volume overload and low urine output. Has permacath. 2. Acute on chronic systolic CHF with ejection fraction of 40-45% with severe pulmonary hypertension. 3. Anemia. Iron deficiency noted. s/p IV iron. On Aranesp. 4. Volume overload. Improved with ultrafiltration. 5. Diabetes mellitus. 6. Right heel cellulitis on antibiotics. Plan: Hemodialysis Saturday. Maintain torsemide. Stop SGLT2i as she's on HD. Maintain 1500 mL fluid restriction. Monitor for renal recovery outpatient. Phosphorus level 4.7 dated 05/15/2023.
[2023-05-27 12:08] LABS: Glucose,Whole Blood 368 mg/dL (70-110)
[2023-05-27 17:41] LABS: Glucose,Whole Blood 402 mg/dL (70-110)
[2023-05-27] MEDS: INSULIN ASPART (NovoLOG) 100 UNIT/ML VIAL SQ ONE (18:18)
[2023-05-27 20:26] LABS: Glucose,Whole Blood 222 mg/dL (70-110)
--- NOTE | 2023-05-27 22:55 | PN ---
PROGRESS NOTE SUBJECTIVE: A 57-year-old white female. OBJECTIVE: VITAL SIGNS: Blood pressure 134/66, O2 of 96% on room air, pulse 70s to 80s, temperature 97.4. CARDIOVASCULAR: S1, S2. LUNGS: Transmitted upper sounds. HEMATOLOGY: Negative Homans. PSYCH: Fair mood and affect. OPHTHALMOLOGIC: Pupils equal, round, and reactive. Sugars in the mid 200s and yeimy up to 400 tonight. Remains on her normal fast acting insulin 2 to 3 units. Continue current treatment. Prognosis guarded. Ambulate as tolerated. Vital signs are improved. Possible discharge home soon. Waiting for renal physician to give their opinion on things. They are waiting for her urine report. At that time, she says she is in no acute distress. Her GFR is greatly improved. She is getting hemodialysis tomorrow. Maintain torsemide. Stop SGOT as she is on hemodialysis. Maintain 1500 mL fluid restriction. Monitor for renal recovery outpatient. Hospice . Prognosis guarded. MMODL / IJN: [id number] /
[2023-05-28 06:24] LABS: Glucose,Whole Blood 280 mg/dL (70-110)
[2023-05-28 09:00] LABS: Basophils # (A) 0.11 X 10*3/uL (0.00-0.10); Basophils % (A) 1.4 %; Eosinophils # (A) 0.18 X 10*3/uL (0.04-0.35); Eosinophils % (A) 2.3 %; HCT 37.8 % (37.2-46.3); HGB 11.1 g/dL (12.0-15.0); Lymphocytes # (A) 1.14 X 10*3/uL (0.90-5.00); Lymphocytes % (A) 14.3 %; MCH 24.8 pg (27.0-32.0); MCHC 29.4 g/dL (32.0-37.0); MCV 84.6 FL (80.0-97.0); Monocytes # (A) 0.85 X 10*3/uL (0.20-1.00); Monocytes % (A) 10.7 %; NRBC Per 100 WBC 0 X 10*3/uL (0.00-0.01); Neutrophils % (A) 70.2 %; Platelet Count 449 X 10*3/uL (140-440); RBC 4.47 X 10*6/uL (4.10-5.20); RDW 18.4 % (11.5-14.5); WBC 7.97 X 10*3/uL (4.50-10.00)
[2023-05-28 09:02] LABS: Total Volume 24 Hour,Urine 600 mL
[2023-05-28 10:12] LABS: ALT 30 U/L (8-44); AST 27 U/L (13-35); Albumin 3.4 g/dL (3.8-4.9); Albumin/Globulin Ratio 0.92 Ratio (1.60-3.17); Alkaline Phosphatase 220 U/L (41-126); BUN/Creat Ratio 14.67 Ratio (12.00-20.00); Blood Urea Nitrogen 30.8 mg/dL (9.0-27.0); Carbon Dioxide 26.9 mmol/L (21.6-31.8); Chloride 98 mmol/L (96-109); Globulin 3.7 g/dL (1.6-3.3); Glucose 304 mg/dL (70-110); Sodium 138 mmol/L (135-145); Total Bilirubin 0.3 mg/dL (0.3-1.2); Total Protein 7.1 g/dL (6.2-8.2)
--- NOTE | 2023-05-28 11:36 | P.PN ---
Subjective Patient is seen in follow-up for acute kidney injury, hemodialysis dependent. Resting in bed. On room air. Denies chest pain or shortness of breath. Vital signs are stable. General: No acute distress. HEENT: Head exam is unremarkable. LUNGS: No audible rhonchi or wheezes. HEART: Rate and Rhythm are regular. ABDOMEN: Nontender. EXTREMITITES: No edema. Objective - Vital Signs Vital signs: Vital Signs Temp 97.9 F 05/28/23 07:47 Pulse 77 05/28/23 11:24 Resp 18 05/28/23 11:24 BP 154/72 05/28/23 07:47 Pulse Ox 96 05/28/23 07:51 FiO2 Intake & Output 05/27/23 05/28/23 05/28/23 18:59 06:59 18:59 Intake Total 0 240 Output Total 0 Balance 0 240 Weight 51.1 kg 51.9 kg Intake: Oral 0 240 Output: Emesis 0 Other: Voiding Method Toilet Toilet Toilet # Voids 1 1 - Labs CBC & Chem 7: 05/28/23 06:12 05/28/23 06:12 Labs: Abnormal Lab Results - Last 24 Hours (Table) 05/26/23 05/27/23 05/27/23 Range/Units 14:06 12:07 17:40 Hgb (12.0-15.0) g/dL MCH (27.0-32.0) pg MCHC (32.0-37.0) g/dL RDW (11.5-14.5) % Plt Count (140-440) X 10*3/uL Immature Gran # (0.00-0.04) X 10*3/uL Basophils # (0.00-0.10) X 10*3/uL Anion Gap (4.00-12.00) mmol/L BUN (9.0-27.0) mg/dL Creatinine (0.6-1.5) mg/dL Est GFR (CKD-EPI) (>=60) Glucose (70-110) mg/dL POC Glucose (mg/dL) 368 H 402 H (70-110) mg/dL Alkaline Phosphatase (41-126) U/L Albumin (3.8-4.9) g/dL Globulin (1.6-3.3) g/dL Albumin/Globulin Ratio (1.60-3.17) Ratio U Tot Protein 24h, Calc 1104.0 H (0.0-165.0) mg/24Hr 05/27/23 05/28/23 05/28/23 Range/Units 20:24 06:12 06:12 Hgb 11.1 L (12.0-15.0) g/dL MCH 24.8 L (27.0-32.0) pg MCHC 29.4 L (32.0-37.0) g/dL RDW 18.4 H (11.5-14.5) % Plt Count 449 H (140-440) X 10*3/uL Immature Gran # 0.09 H (0.00-0.04) X 10*3/uL Basophils # 0.11 H (0.00-0.10) X 10*3/uL Anion Gap 13.10 H (4.00-12.00) mmol/L BUN 30.8 H (9.0-27.0) mg/dL Creatinine 2.1 H (0.6-1.5) mg/dL Est GFR (CKD-EPI) 27 L (>=60) Glucose 304 H (70-110) mg/dL POC Glucose (mg/dL) 222 H (70-110) mg/dL Alkaline Phosphatase 220 H (41-126) U/L Albumin 3.4 L (3.8-4.9) g/dL Globulin 3.7 H (1.6-3.3) g/dL Albumin/Globulin Ratio 0.92 L (1.60-3.17) Ratio U Tot Protein 24h, Calc (0.0-165.0) mg/24Hr 05/28/23 Range/Units 06:23 Hgb (12.0-15.0) g/dL MCH (27.0-32.0) pg MCHC (32.0-37.0) g/dL RDW (11.5-14.5) % Plt Count (140-440) X 10*3/uL Immature Gran # (0.00-0.04) X 10*3/uL Basophils # (0.00-0.10) X 10*3/uL Anion Gap (4.00-12.00) mmol/L BUN (9.0-27.0) mg/dL Creatinine (0.6-1.5) mg/dL Est GFR (CKD-EPI) (>=60) Glucose (70-110) mg/dL POC Glucose (mg/dL) 280 H (70-110) mg/dL Alkaline Phosphatase (41-126) U/L Albumin (3.8-4.9) g/dL Globulin (1.6-3.3) g/dL Albumin/Globulin Ratio (1.60-3.17) Ratio U Tot Protein 24h, Calc (0.0-165.0) mg/24Hr Assessment and Plan Plan: Assessment: 1. Acute kidney injury secondary to ATN secondary to cardiorenal syndrome. Started on hemodialysis 05/07/2023 due to severe volume overload and low urine output. Has permacath. 2. Acute on chronic systolic CHF with ejection fraction of 40-45% with severe pulmonary hypertension. 3. Anemia. Iron deficiency noted. s/p IV iron. On Aranesp. 4. Volume overload. Improved with ultrafiltration. 5. Diabetes mellitus. 6. Right heel cellulitis on antibiotics. Plan: Hemodialysis today. Maintain torsemide. Stopped SGLT2i as she's on HD. Maintain 1500 mL fluid restriction. Monitor for renal recovery outpatient. Phosphorus level 4.7 dated 05/15/2023.
[2023-05-28 12:34] LABS: Glucose,Whole Blood 295 mg/dL (70-110)
--- NOTE | 2023-05-28 16:31 | P.PN ---
Subjective Progress Note Date: 05/26/23 Principal diagnosis: Reason for follow-up is fever This is a telehealth visit Patient is a 57-year-old female with a past medical history significant for diabetes mellitus, hypertension right heel diabetic foot wound and cellulitis with recent admission to the hospital local culture positive for Pseudomonas Enterococcus and the patient received 3-week course of IV Zosyn during the hospital stay the patient also developed renal failure requiring dialysis, presenting back to the hospital with worsening shortness of breath and also have a fever. Chest x-ray was suggestive of CHF, CT of the chest small bilateral effusion and cardiomegaly lymphadenopathy scattered throughout. On today's evaluation that is 05/26/2023, the patient continues to be afebrile, the patient is breathing comfortably on room air without need for supplemental oxygen, the patient denies having any shortness of breath, chest pain, patient did have a cough mild to moderate occasional sputum,Patient denies having any abdominal pain no nausea vomiting or any diarrhea.feeling better Patient did have white count of 6.28, creatinine is 1.7 Objective - Vital Signs Vital signs: Vital Signs Temp 97.6 F 05/26/23 14:00 Pulse 72 05/26/23 16:28 Resp 14 05/26/23 14:00 BP 127/49 05/26/23 14:00 Pulse Ox 92 L 05/26/23 14:00 FiO2 Intake & Output 05/25/23 05/26/23 05/26/23 18:59 06:59 18:59 Intake Total 400 Output Total 2700 800 650 Balance -2300 -800 -650 Weight 51.1 kg Intake: Hemodialysis 400 Output: Urine 300 800 650 Hemodialysis 2400 Other: Voiding Method Toilet # Voids 1 - Exam GENERAL DESCRIPTION: Middle-aged female lying in bed in no distress RESPIRATORY SYSTEM: Unlabored breathing , decreased breath sounds at bases HEART: S1 S2 regular rate and rhythm , ABDOMEN: Soft , no tenderness EXTREMITIES: Right heel wound is currently dressed - Labs CBC & Chem 7: 05/28/23 06:12 05/28/23 06:12 Labs: Abnormal Lab Results - Last 24 Hours (Table) 05/25/23 05/25/23 05/26/23 Range/Units 19:28 20:44 05:47 Hgb (12.0-15.0) g/dL Hct (37.2-46.3) % MCH (27.0-32.0) pg MCHC (32.0-37.0) g/dL RDW (11.5-14.5) % Plt Count (140-440) X 10*3/uL Immature Gran # (0.00-0.04) X 10*3/uL Lymphocytes # (0.90-5.00) X 10*3/uL Anion Gap (4.00-12.00) mmol/L Creatinine (0.6-1.5) mg/dL Est GFR (CKD-EPI) (>=60) BUN/Creatinine Ratio (12.00-20.00) Ratio Glucose (70-110) mg/dL POC Glucose (mg/dL) 274 H 213 H (70-110) mg/dL Alkaline Phosphatase (41-126) U/L Albumin (3.8-4.9) g/dL Globulin (1.6-3.3) g/dL Albumin/Globulin Ratio (1.60-3.17) Ratio Urine Protein 2+ H (Negative) Urine Glucose (UA) 4+ H (Negative) Amorphous Sediment Rare H (None) /hpf Urine Bacteria Rare H (None) /hpf Hyaline Casts 7 H (0-2) /lpf Urine Mucus Rare H (None) /hpf 05/26/23 05/26/23 05/26/23 Range/Units 06:32 06:32 12:07 Hgb 11.0 L (12.0-15.0) g/dL Hct 36.4 L (37.2-46.3) % MCH 24.9 L (27.0-32.0) pg MCHC 30.2 L (32.0-37.0) g/dL RDW 17.7 H (11.5-14.5) % Plt Count 454 H (140-440) X 10*3/uL Immature Gran # 0.11 H (0.00-0.04) X 10*3/uL Lymphocytes # 0.89 L (0.90-5.00) X 10*3/uL Anion Gap 12.60 H (4.00-12.00) mmol/L Creatinine 1.7 H (0.6-1.5) mg/dL Est GFR (CKD-EPI) 35 L (>=60) BUN/Creatinine Ratio 8.82 L (12.00-20.00) Ratio Glucose 217 H (70-110) mg/dL POC Glucose (mg/dL) 355 H (70-110) mg/dL Alkaline Phosphatase 235 H (41-126) U/L Albumin 3.4 L (3.8-4.9) g/dL Globulin 3.7 H (1.6-3.3) g/dL Albumin/Globulin Ratio 0.92 L (1.60-3.17) Ratio Urine Protein (Negative) Urine Glucose (UA) (Negative) Amorphous Sediment (None) /hpf Urine Bacteria (None) /hpf Hyaline Casts (0-2) /lpf Urine Mucus (None) /hpf 05/26/23 Range/Units 17:04 Hgb (12.0-15.0) g/dL Hct (37.2-46.3) % MCH (27.0-32.0) pg MCHC (32.0-37.0) g/dL RDW (11.5-14.5) % Plt Count (140-440) X 10*3/uL Immature Gran # (0.00-0.04) X 10*3/uL Lymphocytes # (0.90-5.00) X 10*3/uL Anion Gap (4.00-12.00) mmol/L Creatinine (0.6-1.5) mg/dL Est GFR (CKD-EPI) (>=60) BUN/Creatinine Ratio (12.00-20.00) Ratio Glucose (70-110) mg/dL POC Glucose (mg/dL) 224 H (70-110) mg/dL Alkaline Phosphatase (41-126) U/L Albumin (3.8-4.9) g/dL Globulin (1.6-3.3) g/dL Albumin/Globulin Ratio (1.60-3.17) Ratio Urine Protein (Negative) Urine Glucose (UA) (Negative) Amorphous Sediment (None) /hpf Urine Bacteria (None) /hpf Hyaline Casts (0-2) /lpf Urine Mucus (None) /hpf Assessment and Plan (1) Pressure ulcer of right heel, stage 3 Current Visit: No Status: Acute Code(s): L89.613 - PRESSURE ULCER OF RIGHT HEEL, STAGE 3 SNOMED Code(s): 32875921688834 (2) Fever Current Visit: Yes Status: Acute Code(s): R50.9 - FEVER, UNSPECIFIED SNOMED Code(s): 286567505 Plan: 1-patient presented to hospital with fever also complaining of increasing shortness of breath and cough with concern for possible pneumonia versus line infection 2-patient did have right heel wound which seem to be healing well with no evidence of any cellulitis 3-local wound care to the right heel with Aquacel silver dressing change every 48 hour 4-patient did have resolution of her fever and white count is normal the patient blood cultures are negative that will make line related sepsis to be less likely, hence daptomycin was discontinued 5- patient did have mostly respiratory symptoms and is bringing up some purulent sputum, concerning for pneumonia also have elevated procalcitonin, sputum has been requested but not collected 6- patient remains to be afebrile, patient did have a normal white count 7-patient to continue with cefepime to finish a 2-week course of therapy can be transition to oral antibiotics if discharged before that Dictation was produced using [employer] dictation software. please excuse any grammatical, word or spelling errors. Time with Patient: Less than 30
--- NOTE | 2023-05-28 16:33 | P.PN ---
Subjective Progress Note Date: 05/27/23 Principal diagnosis: Reason for follow-up is fever Patient is a 57-year-old female with a past medical history significant for diabetes mellitus, hypertension right heel diabetic foot wound and cellulitis with recent admission to the hospital local culture positive for Pseudomonas Enterococcus and the patient received 3-week course of IV Zosyn during the hospital stay the patient also developed renal failure requiring dialysis, presenting back to the hospital with worsening shortness of breath and also have a fever. Chest x-ray was suggestive of CHF, CT of the chest small bilateral effusion and cardiomegaly lymphadenopathy scattered throughout. On today's evaluation that is 05/27/2023, the patient remains to be afebrile, the patient is breathing comfortably on room air, the patient denies having any chest pain shortness of breath did have cough mild with occasional sputum,Patient denies having any abdominal pain no nausea vomiting or any diarrhea, no new symptoms Patient did have white count of 6.28, creatinine is 1.7 as of yesterday no lab draw today Objective - Vital Signs Vital signs: Vital Signs Temp 97.5 F L 05/27/23 07:25 Pulse 76 05/27/23 08:33 Resp 16 05/27/23 07:25 BP 157/74 05/27/23 07:25 Pulse Ox 94 L 05/27/23 07:25 FiO2 Intake & Output 05/26/23 05/27/23 05/27/23 18:59 06:59 18:59 Output Total 650 300 Balance -650 -300 Weight 51.1 kg Output: Urine 650 300 Other: Voiding Method Toilet Toilet # Bowel Movements 1 - Exam GENERAL DESCRIPTION: Middle-age female lying in bed in no distress RESPIRATORY SYSTEM: Unlabored breathing , decreased breath sounds at bases HEART: S1 S2 regular rate and rhythm , ABDOMEN: Soft , no tenderness EXTREMITIES: Right heel wound is currently dressed no drainage on the dressing - Labs CBC & Chem 7: 05/28/23 06:12 05/28/23 06:12 Labs: Abnormal Lab Results - Last 24 Hours (Table) 05/26/23 05/26/23 05/26/23 Range/Units 06:32 06:32 12:07 Hgb 11.0 L (12.0-15.0) g/dL Hct 36.4 L (37.2-46.3) % MCH 24.9 L (27.0-32.0) pg MCHC 30.2 L (32.0-37.0) g/dL RDW 17.7 H (11.5-14.5) % Plt Count 454 H (140-440) X 10*3/uL Immature Gran # 0.11 H (0.00-0.04) X 10*3/uL Lymphocytes # 0.89 L (0.90-5.00) X 10*3/uL Anion Gap 12.60 H (4.00-12.00) mmol/L Creatinine 1.7 H (0.6-1.5) mg/dL Est GFR (CKD-EPI) 35 L (>=60) BUN/Creatinine Ratio 8.82 L (12.00-20.00) Ratio Glucose 217 H (70-110) mg/dL POC Glucose (mg/dL) 355 H (70-110) mg/dL Alkaline Phosphatase 235 H (41-126) U/L Albumin 3.4 L (3.8-4.9) g/dL Globulin 3.7 H (1.6-3.3) g/dL Albumin/Globulin Ratio 0.92 L (1.60-3.17) Ratio 05/26/23 05/26/23 05/27/23 Range/Units 17:04 20:39 07:27 Hgb (12.0-15.0) g/dL Hct (37.2-46.3) % MCH (27.0-32.0) pg MCHC (32.0-37.0) g/dL RDW (11.5-14.5) % Plt Count (140-440) X 10*3/uL Immature Gran # (0.00-0.04) X 10*3/uL Lymphocytes # (0.90-5.00) X 10*3/uL Anion Gap (4.00-12.00) mmol/L Creatinine (0.6-1.5) mg/dL Est GFR (CKD-EPI) (>=60) BUN/Creatinine Ratio (12.00-20.00) Ratio Glucose (70-110) mg/dL POC Glucose (mg/dL) 224 H 306 H 216 H (70-110) mg/dL Alkaline Phosphatase (41-126) U/L Albumin (3.8-4.9) g/dL Globulin (1.6-3.3) g/dL Albumin/Globulin Ratio (1.60-3.17) Ratio Assessment and Plan (1) Pressure ulcer of right heel, stage 3 Current Visit: No Status: Acute Code(s): L89.613 - PRESSURE ULCER OF RIGHT HEEL, STAGE 3 SNOMED Code(s): 37647386766154 (2) Fever Current Visit: Yes Status: Acute Code(s): R50.9 - FEVER, UNSPECIFIED SNOMED Code(s): 319158166 Plan: 1-patient presented to hospital with fever also complaining of increasing shortness of breath and cough with concern for possible pneumonia versus line infection 2-patient did have right heel wound which seem to be healing well with no evidence of any cellulitis 3-local wound care to the right heel with Aquacel silver dressing change every 48 hour 4-patient did have resolution of her fever and white count is normal the patient blood cultures are negative that will make line related sepsis to be less likely, hence daptomycin was discontinued 5- patient did have mostly respiratory symptoms and is bringing up some purulent sputum, concerning for pneumonia also have elevated procalcitonin, sputum has been requested but not collected 6- patient remains to be afebrile, patient did have a normal white count, patient to continue with the cefepime today day 13 out of 14 and will monitor clinical course closely Dictation was produced using [employer] dictation software. please excuse any grammatical, word or spelling errors. Time with Patient: Less than 30
--- NOTE | 2023-05-28 16:34 | P.PN ---
Subjective Progress Note Date: 05/28/23 Principal diagnosis: Reason for follow-up is fever/pneumonia Patient is a 57-year-old female with a past medical history significant for diabetes mellitus, hypertension right heel diabetic foot wound and cellulitis with recent admission to the hospital local culture positive for Pseudomonas Enterococcus and the patient received 3-week course of IV Zosyn during the hospital stay the patient also developed renal failure requiring dialysis, presenting back to the hospital with worsening shortness of breath and also have a fever. Chest x-ray was suggestive of CHF, CT of the chest small bilateral effusion and cardiomegaly lymphadenopathy scattered throughout. On today's evaluation that is 05/28/2023, the patient denies any fever or any chills, the patient is breathing comfortably on room air, the patient denies having any chest pain shortness of breath did have occasional cough,Patient denies having any abdominal pain no nausea vomiting or any diarrhea, feeling better wants to go home Patient did have white count of 7.97, creatinine is 2.1 Objective - Vital Signs Vital signs: Vital Signs Temp 97.5 F L 05/28/23 14:00 Pulse 75 05/28/23 14:00 Resp 16 05/28/23 14:00 BP 102/72 05/28/23 14:00 Pulse Ox 97 05/28/23 14:00 FiO2 Intake & Output 05/27/23 05/28/23 05/28/23 18:59 06:59 18:59 Intake Total 0 240 Output Total 0 Balance 0 240 Weight 51.1 kg 51.9 kg Intake: Oral 0 240 Output: Emesis 0 Other: Voiding Method Toilet Toilet Toilet # Voids 1 1 - Exam GENERAL DESCRIPTION: Middle-age female lying in bed in no distress RESPIRATORY SYSTEM: Unlabored breathing , decreased breath sounds at bases HEART: S1 S2 regular rate and rhythm , ABDOMEN: Soft , no tenderness EXTREMITIES: Right heel wound is currently dressed no drainage on the dressing - Labs CBC & Chem 7: 05/28/23 06:12 05/28/23 06:12 Labs: Abnormal Lab Results - Last 24 Hours (Table) 05/26/23 05/27/23 05/27/23 Range/Units 14:06 17:40 20:24 Hgb (12.0-15.0) g/dL MCH (27.0-32.0) pg MCHC (32.0-37.0) g/dL RDW (11.5-14.5) % Plt Count (140-440) X 10*3/uL Immature Gran # (0.00-0.04) X 10*3/uL Basophils # (0.00-0.10) X 10*3/uL Anion Gap (4.00-12.00) mmol/L BUN (9.0-27.0) mg/dL Creatinine (0.6-1.5) mg/dL Est GFR (CKD-EPI) (>=60) Glucose (70-110) mg/dL POC Glucose (mg/dL) 402 H 222 H (70-110) mg/dL Alkaline Phosphatase (41-126) U/L Albumin (3.8-4.9) g/dL Globulin (1.6-3.3) g/dL Albumin/Globulin Ratio (1.60-3.17) Ratio U Tot Protein 24h, Calc 1104.0 H (0.0-165.0) mg/24Hr 05/28/23 05/28/23 05/28/23 Range/Units 06:12 06:12 06:23 Hgb 11.1 L (12.0-15.0) g/dL MCH 24.8 L (27.0-32.0) pg MCHC 29.4 L (32.0-37.0) g/dL RDW 18.4 H (11.5-14.5) % Plt Count 449 H (140-440) X 10*3/uL Immature Gran # 0.09 H (0.00-0.04) X 10*3/uL Basophils # 0.11 H (0.00-0.10) X 10*3/uL Anion Gap 13.10 H (4.00-12.00) mmol/L BUN 30.8 H (9.0-27.0) mg/dL Creatinine 2.1 H (0.6-1.5) mg/dL Est GFR (CKD-EPI) 27 L (>=60) Glucose 304 H (70-110) mg/dL POC Glucose (mg/dL) 280 H (70-110) mg/dL Alkaline Phosphatase 220 H (41-126) U/L Albumin 3.4 L (3.8-4.9) g/dL Globulin 3.7 H (1.6-3.3) g/dL Albumin/Globulin Ratio 0.92 L (1.60-3.17) Ratio U Tot Protein 24h, Calc (0.0-165.0) mg/24Hr 05/28/23 Range/Units 12:32 Hgb (12.0-15.0) g/dL MCH (27.0-32.0) pg MCHC (32.0-37.0) g/dL RDW (11.5-14.5) % Plt Count (140-440) X 10*3/uL Immature Gran # (0.00-0.04) X 10*3/uL Basophils # (0.00-0.10) X 10*3/uL Anion Gap (4.00-12.00) mmol/L BUN (9.0-27.0) mg/dL Creatinine (0.6-1.5) mg/dL Est GFR (CKD-EPI) (>=60) Glucose (70-110) mg/dL POC Glucose (mg/dL) 295 H (70-110) mg/dL Alkaline Phosphatase (41-126) U/L Albumin (3.8-4.9) g/dL Globulin (1.6-3.3) g/dL Albumin/Globulin Ratio (1.60-3.17) Ratio U Tot Protein 24h, Calc (0.0-165.0) mg/24Hr Assessment and Plan (1) Pressure ulcer of right heel, stage 3 Current Visit: No Status: Acute Code(s): L89.613 - PRESSURE ULCER OF RIGHT HEEL, STAGE 3 SNOMED Code(s): 78387288276618 (2) Fever Current Visit: Yes Status: Acute Code(s): R50.9 - FEVER, UNSPECIFIED SNOMED Code(s): 676578646 Plan: 1-patient presented to hospital with fever also complaining of increasing shortness of breath and cough with concern for possible pneumonia versus line infection 2-patient did have right heel wound which seem to be healing well with no evidence of any cellulitis 3-local wound care to the right heel with Aquacel silver dressing change every 48 hour 4-patient did have resolution of her fever and white count is normal the patient blood cultures are negative that will make line related sepsis to be less likely, hence daptomycin was discontinued 5- patient did have mostly respiratory symptoms and is bringing up some purulent sputum, concerning for pneumonia also have elevated procalcitonin, sputum has been requested but not collected 6- patient remains to be afebrile, patient did have a normal white count, patient will complete her 2-week course of cefepime as of today afterwards antibiotics can be safely discontinued and the patient will monitor closely off antibiotics Dictation was produced using [employer] dictation software. please excuse any grammatical, word or spelling errors. Time with Patient: Less than 30
[2023-05-28 17:26] LABS: Glucose,Whole Blood 205 mg/dL (70-110)
[2023-05-28 20:54] LABS: Glucose,Whole Blood 308 mg/dL (70-110)
[2023-05-29 06:11] LABS: Glucose,Whole Blood 353 mg/dL (70-110)
--- NOTE | 2023-05-29 11:59 | P.PN ---
Subjective Patient is seen in follow-up for acute kidney injury, hemodialysis dependent. Resting in bed. On room air. Denies chest pain or shortness of breath. No active complaints. Vital signs are stable. General: No acute distress. HEENT: Head exam is unremarkable. On room air. LUNGS: No audible rhonchi or wheezes. HEART: Rate and Rhythm are regular. ABDOMEN: Nontender. EXTREMITITES: No edema. Objective - Vital Signs Vital signs: Vital Signs Temp 97.8 F 05/29/23 07:42 Pulse 76 05/29/23 09:23 Resp 21 05/29/23 07:42 BP 153/72 05/29/23 07:42 Pulse Ox 91 L 05/29/23 07:42 FiO2 Intake & Output 05/28/23 05/29/23 05/29/23 18:59 06:59 18:59 Intake Total 840 722 Output Total 1999 Balance -1160 722 Weight 50.4 kg Intake: Oral 440 722 Hemodialysis 400 Output: Hemodialysis 1999 Other: Voiding Method Toilet Toilet # Voids 1 2 - Labs CBC & Chem 7: 05/28/23 06:12 05/28/23 06:12 Labs: Abnormal Lab Results - Last 24 Hours (Table) 05/28/23 05/28/23 05/28/23 Range/Units 12:32 17:24 20:52 POC Glucose (mg/dL) 295 H 205 H 308 H (70-110) mg/dL 05/29/23 Range/Units 06:09 POC Glucose (mg/dL) 353 H (70-110) mg/dL Assessment and Plan Plan: Assessment: 1. Acute kidney injury secondary to ATN secondary to cardiorenal syndrome. Started on hemodialysis 05/07/2023 due to severe volume overload and low urine output. Has permacath. 2. Acute on chronic systolic CHF with ejection fraction of 40-45% with severe pulmonary hypertension. 3. Anemia. Iron deficiency noted. s/p IV iron. On Aranesp. 4. Volume overload. Improved with ultrafiltration. 5. Diabetes mellitus. 6. Right heel cellulitis s/p antibiotics. Plan: Hemodialysis tomorrow. Maintain torsemide. Stopped SGLT2i as she's on HD. Maintain 1500 mL fluid restriction. Monitor for renal recovery outpatient. Phosphorus level 4.7 dated 05/15/2023.
[2023-05-29 12:01] LABS: Glucose,Whole Blood 493 mg/dL (70-110)
[2023-05-29] MEDS: INSULIN REGULAR 100 UNIT/ML VIAL (IM/SQ) SQ ONE ×2 (13:16→16:57)
[2023-05-29 14:02] LABS: Glucose,Whole Blood 516 mg/dL (70-110)
[2023-05-29 15:19] LABS: Glucose,Whole Blood 464 mg/dL (70-110)
[2023-05-29] MEDS ORDERED: METOCLOPRAMIDE 5 MG/ML 2 ML VIAL IVP PRN (17:00)
[2023-05-29 17:29] LABS: Glucose,Whole Blood 391 mg/dL (70-110)
[2023-05-29] MEDS: ONDANSETRON 4 MG/2 ML VIAL IVP PRN (17:31)
[2023-05-29 20:34] LABS: Glucose,Whole Blood 97 mg/dL (70-110)
[2023-05-29] MEDS: INSULIN DETEMIR (LEVEMIR) 100 UNIT/ML SYR SQ SCH (20:51)
--- NOTE | 2023-05-30 03:28 | PN ---
PROGRESS NOTE SUBJECTIVE: Chelle Lin has been having high pressure yesterday. She is waiting to get nebulizer to go home. Blood pressure 100 systolic from 150 systolic. She states she is up eating in bed. She says she feels normal. She has had some nausea and vomiting. She is eating food at this time. OBJECTIVE: VITAL SIGNS: Blood pressure is 118/63, O2 of 93% on room air, temp 97.5, pulse 71, respiratory rate 16 to 18. LUNGS: Clear. GI: Soft. ASSESSMENT: Possible gastroparesis. We will check labs, electrolytes. Advance diet as tolerated. We gave her she normally gets at night, she is on about 3 to 5 units per scale. Sugars now 97, was 330 earlier this evening. Continued on current treatments. Insulin- dependent diabetes mellitus, possible gastroparesis with nausea medicine. COPD, pulmonary hypertension. Continue current treatments. Prognosis guarded. Generalized weakness. Please see further orders. MMODL / IJN: [id number] /
[2023-05-30 06:14] LABS: Glucose,Whole Blood 202 mg/dL (70-110)
[2023-05-30 08:56] LABS: BUN/Creat Ratio 13.33 Ratio (12.00-20.00); Carbon Dioxide 25.7 mmol/L (21.6-31.8); Chloride 100 mmol/L (96-109); Glucose 178 mg/dL (70-110); Potassium 4.2 mmol/L (3.5-5.5); Sodium 139 mmol/L (135-145)
[2023-05-30 08:57] LABS: Calcium 9.4 mg/dL (8.7-10.3)
[2023-05-30 11:57] LABS: Glucose,Whole Blood 180 mg/dL (70-110)
--- NOTE | 2023-05-30 12:59 | P.PN ---
Subjective Patient is seen in follow-up for acute kidney injury, hemodialysis dependent. Resting in bed. On room air. Tolerating dialysis well. Denies chest pain or shortness of breath. No active complaints. Vital signs are stable. General: No acute distress. HEENT: Head exam is unremarkable. On room air. LUNGS: No audible rhonchi or wheezes. HEART: Rate and Rhythm are regular. ABDOMEN: Nontender. EXTREMITITES: No edema. Objective - Vital Signs Vital signs: Vital Signs Temp 97.8 F 05/30/23 07:21 Pulse 72 05/30/23 11:35 Resp 16 05/30/23 03:25 BP 106/68 05/30/23 07:21 Pulse Ox 100 05/30/23 07:33 FiO2 Intake & Output 05/29/23 05/30/23 05/30/23 18:59 06:59 18:59 Intake Total 722 Balance 722 Weight 50.6 kg Intake: Oral 722 Other: Voiding Method Toilet Toilet Toilet # Voids 1 - Labs CBC & Chem 7: 05/28/23 06:12 05/30/23 03:29 Labs: Abnormal Lab Results - Last 24 Hours (Table) 05/29/23 05/29/23 05/29/23 Range/Units 13:59 15:17 17:28 Anion Gap (4.00-12.00) mmol/L BUN (9.0-27.0) mg/dL Creatinine (0.6-1.5) mg/dL Est GFR (CKD-EPI) (>=60) Glucose (70-110) mg/dL POC Glucose (mg/dL) 516 H 464 H 391 H (70-110) mg/dL 05/30/23 05/30/23 05/30/23 Range/Units 03:29 06:11 11:55 Anion Gap 13.30 H (4.00-12.00) mmol/L BUN 32.0 H (9.0-27.0) mg/dL Creatinine 2.4 H (0.6-1.5) mg/dL Est GFR (CKD-EPI) 23 L (>=60) Glucose 178 H (70-110) mg/dL POC Glucose (mg/dL) 202 H 180 H (70-110) mg/dL Assessment and Plan Plan: Assessment: 1. Acute kidney injury secondary to ATN secondary to cardiorenal syndrome. Started on hemodialysis 05/07/2023 due to severe volume overload and low urine output. Has permacath. 2. Acute on chronic systolic CHF with ejection fraction of 40-45% with severe pulmonary hypertension. 3. Anemia. Iron deficiency noted. s/p IV iron. On Aranesp. 4. Volume overload. Improved with ultrafiltration. 5. Diabetes mellitus. 6. Right heel cellulitis s/p antibiotics. Plan: Currently seen while undergoing hemodialysis. Plan for another treatment tomorrow and then plan for discharge. She will resume hemodialysis on TTS schedule next week. Maintain torsemide. Stopped SGLT2i as she's on HD. Maintain 1500 mL fluid restriction. Monitor for renal recovery outpatient. Phosphorus level 4.7 dated 05/15/2023.
[2023-05-30 13:36] VITALS: BMI 19.8
[2023-05-30 15:14] LABS: HCT 41.9 % (37.2-46.3); HGB 12.1 g/dL (12.0-15.0); MCH 24.9 pg (27.0-32.0); MCHC 28.9 g/dL (32.0-37.0); MCV 86.4 FL (80.0-97.0); Mean Platelet Volume 11.1 FL (9.5-12.2); NRBC Per 100 WBC 0 X 10*3/uL (0.00-0.01); Platelet Count 379 X 10*3/uL (140-440); RBC 4.85 X 10*6/uL (4.10-5.20); RDW 18.6 % (11.5-14.5); WBC 7.74 X 10*3/uL (4.50-10.00)
--- NOTE | 2023-05-30 17:01 | P.PN ---
Subjective Progress Note Date: 05/29/23 Principal diagnosis: Reason for follow-up is fever/pneumonia Patient is a 57-year-old female with a past medical history significant for diabetes mellitus, hypertension right heel diabetic foot wound and cellulitis with recent admission to the hospital local culture positive for Pseudomonas Enterococcus and the patient received 3-week course of IV Zosyn during the hospital stay the patient also developed renal failure requiring dialysis, presenting back to the hospital with worsening shortness of breath and also have a fever. Chest x-ray was suggestive of CHF, CT of the chest small bilateral effusion and cardiomegaly lymphadenopathy scattered throughout. On today's evaluation that is 05/29/2023, the patient continues, the patient is breathing comfortably on room air, the patient denies having any chest pain shortness of breath, the patient did have did have occasional cough,Patient denies having any abdominal pain no nausea vomiting or any diarrhea, no new symptoms Patient did have white count of 7.97, creatinine is 2.1 as of yesterday no lab draw today Objective - Vital Signs Vital signs: Vital Signs Temp 97.8 F 05/29/23 07:42 Pulse 76 05/29/23 09:23 Resp 21 05/29/23 07:42 BP 153/72 05/29/23 07:42 Pulse Ox 91 L 05/29/23 07:42 FiO2 Intake & Output 05/28/23 05/29/23 05/29/23 18:59 06:59 18:59 Intake Total 840 Output Total 1999 Balance -1160 Weight 50.4 kg Intake: Oral 440 Hemodialysis 400 Output: Hemodialysis 1999 Other: Voiding Method Toilet # Voids 1 2 - Exam GENERAL DESCRIPTION: Middle-age female lying in bed in no distress RESPIRATORY SYSTEM: Unlabored breathing , decreased breath sounds at bases HEART: S1 S2 regular rate and rhythm , ABDOMEN: Soft , no tenderness EXTREMITIES: Right heel wound is currently dressed no drainage on the dressing - Labs CBC & Chem 7: 05/30/23 03:29 05/30/23 03:29 Labs: Abnormal Lab Results - Last 24 Hours (Table) 05/28/23 05/28/23 05/28/23 Range/Units 06:12 12:32 17:24 Anion Gap 13.10 H (4.00-12.00) mmol/L BUN 30.8 H (9.0-27.0) mg/dL Creatinine 2.1 H (0.6-1.5) mg/dL Est GFR (CKD-EPI) 27 L (>=60) Glucose 304 H (70-110) mg/dL POC Glucose (mg/dL) 295 H 205 H (70-110) mg/dL Alkaline Phosphatase 220 H (41-126) U/L Albumin 3.4 L (3.8-4.9) g/dL Globulin 3.7 H (1.6-3.3) g/dL Albumin/Globulin Ratio 0.92 L (1.60-3.17) Ratio 05/28/23 05/29/23 Range/Units 20:52 06:09 Anion Gap (4.00-12.00) mmol/L BUN (9.0-27.0) mg/dL Creatinine (0.6-1.5) mg/dL Est GFR (CKD-EPI) (>=60) Glucose (70-110) mg/dL POC Glucose (mg/dL) 308 H 353 H (70-110) mg/dL Alkaline Phosphatase (41-126) U/L Albumin (3.8-4.9) g/dL Globulin (1.6-3.3) g/dL Albumin/Globulin Ratio (1.60-3.17) Ratio Assessment and Plan (1) Pressure ulcer of right heel, stage 3 Current Visit: No Status: Acute Code(s): L89.613 - PRESSURE ULCER OF RIGHT HEEL, STAGE 3 SNOMED Code(s): 65657949466623 (2) Fever Current Visit: Yes Status: Acute Code(s): R50.9 - FEVER, UNSPECIFIED SNOMED Code(s): 669083203 Plan: 1-patient presented to hospital with fever also complaining of increasing shortness of breath and cough with concern for possible pneumonia versus line infection 2-patient did have right heel wound which seem to be healing well with no evidence of any cellulitis 3-local wound care to the right heel with Aquacel silver dressing change every 48 hour 4-patient did have resolution of her fever and white count is normal the patient blood cultures are negative that will make line related sepsis to be less likely, hence daptomycin was discontinued 5- patient did have mostly respiratory symptoms and is bringing up some purulent sputum, concerning for pneumonia also have elevated procalcitonin, sputum has been requested but not collected 6- patient remains to be afebrile, patient did have a normal white count, patient has completed 2-week course of cefepime which will be discontinued today and monitor the patient closely off antibiotic therapy Dictation was produced using [employer] dictation software. please excuse any grammatical, word or spelling errors. Time with Patient: Less than 30
--- NOTE | 2023-05-30 17:02 | P.PN ---
Subjective Progress Note Date: 05/30/23 Principal diagnosis: Reason for follow-up is fever/pneumonia Patient is a 57-year-old female with a past medical history significant for diabetes mellitus, hypertension right heel diabetic foot wound and cellulitis with recent admission to the hospital local culture positive for Pseudomonas Enterococcus and the patient received 3-week course of IV Zosyn during the hospital stay the patient also developed renal failure requiring dialysis, presenting back to the hospital with worsening shortness of breath and also have a fever. Chest x-ray was suggestive of CHF, CT of the chest small bilateral effusion and cardiomegaly lymphadenopathy scattered throughout. On today's evaluation that is 05/30/2023, patient remains to be afebrile, the patient is breathing comfortably on room air denies any chest pain shortness of breath did have occasional cough no worsening, no nausea vomiting no abdominal pain no diarrhea has been reported. Patient did have white count of 7.74, creatinine is 2.4 Objective - Vital Signs Vital signs: Vital Signs Temp 97.8 F 05/30/23 07:21 Pulse 72 05/30/23 11:35 Resp 16 05/30/23 03:25 BP 106/68 05/30/23 07:21 Pulse Ox 100 05/30/23 07:33 FiO2 Intake & Output 05/29/23 05/30/23 05/30/23 18:59 06:59 18:59 Intake Total 722 Balance 722 Weight 50.6 kg Intake: Oral 722 Other: Voiding Method Toilet Toilet Toilet # Voids 1 - Exam GENERAL DESCRIPTION: Middle-age female lying in bed in no distress RESPIRATORY SYSTEM: Unlabored breathing , decreased breath sounds at bases HEART: S1 S2 regular rate and rhythm , ABDOMEN: Soft , no tenderness EXTREMITIES: Right heel wound is currently dressed no drainage on the dressing - Labs CBC & Chem 7: 05/30/23 03:29 05/30/23 03:29 Labs: Abnormal Lab Results - Last 24 Hours (Table) 05/29/23 05/29/23 05/29/23 Range/Units 13:59 15:17 17:28 Anion Gap (4.00-12.00) mmol/L BUN (9.0-27.0) mg/dL Creatinine (0.6-1.5) mg/dL Est GFR (CKD-EPI) (>=60) Glucose (70-110) mg/dL POC Glucose (mg/dL) 516 H 464 H 391 H (70-110) mg/dL 05/30/23 05/30/23 05/30/23 Range/Units 03:29 06:11 11:55 Anion Gap 13.30 H (4.00-12.00) mmol/L BUN 32.0 H (9.0-27.0) mg/dL Creatinine 2.4 H (0.6-1.5) mg/dL Est GFR (CKD-EPI) 23 L (>=60) Glucose 178 H (70-110) mg/dL POC Glucose (mg/dL) 202 H 180 H (70-110) mg/dL Assessment and Plan (1) Pressure ulcer of right heel, stage 3 Current Visit: No Status: Acute Code(s): L89.613 - PRESSURE ULCER OF RIGHT HEEL, STAGE 3 SNOMED Code(s): 41739049357903 (2) Fever Current Visit: Yes Status: Acute Code(s): R50.9 - FEVER, UNSPECIFIED SNOMED Code(s): 797204090 Plan: 1-patient presented to hospital with fever also complaining of increasing shortness of breath and cough with concern for possible pneumonia versus line infection 2-patient did have right heel wound which seem to be healing well with no evidence of any cellulitis 3-local wound care to the right heel with Aquacel silver dressing change every 48 hour 4-patient did have resolution of her fever and white count is normal the patient blood cultures are negative that will make line related sepsis to be less likely, hence daptomycin was discontinued 5- patient did have mostly respiratory symptoms and is bringing up some purulent sputum, concerning for pneumonia also have elevated procalcitonin, sputum has been requested but not collected 6- patient remains to be afebrile, patient did have a normal white count, patient has completed 2-week course of cefepime and is currently being monitored closely off antibiotic therapy there will be no need for antibiotics on discharge Dictation was produced using [email or web address] dictation software. please excuse any grammatical, word or spelling errors. Time with Patient: Less than 30
[2023-05-30 17:12] LABS: Glucose,Whole Blood 259 mg/dL (70-110)
[2023-05-30 21:01] LABS: Glucose,Whole Blood 356 mg/dL (70-110)
--- NOTE | 2023-05-31 00:46 | PN ---
PROGRESS NOTE SUBJECTIVE: A 57-year-old white female. She is in the hospital. Sugars are running a little bit better with the long-acting insulin started last night. No chest pain. Some shortness of breath with movement. OBJECTIVE: CARDIOVASCULAR: S1, S2. HEMATOLOGY: Negative Homans. PSYCH: Fair mood and affect. NEUROLOGIC: Alert and oriented x3. PLAN: Continue current treatments. Pulmicort, DuoNeb for breathing, Aranesp for anemia, hypertension medications etc. Prognosis guarded. MMODL / IJN: [id number] /
[2023-05-31 06:11] LABS: Glucose,Whole Blood 203 mg/dL (70-110)
[2023-05-31 08:32] LABS: Basophils % (A) 1.2 %; Eosinophils # (A) 0.17 X 10*3/uL (0.04-0.35); Eosinophils % (A) 2.1 %; HCT 40.1 % (37.2-46.3); HGB 11.9 g/dL (12.0-15.0); Lymphocytes # (A) 1.06 X 10*3/uL (0.90-5.00); Lymphocytes % (A) 12.9 %; MCH 24.8 pg (27.0-32.0); MCHC 29.7 g/dL (32.0-37.0); MCV 83.7 FL (80.0-97.0); Mean Platelet Volume 11.2 FL (9.5-12.2); Monocytes # (A) 0.79 X 10*3/uL (0.20-1.00); Monocytes % (A) 9.6 %; NRBC Per 100 WBC 0 X 10*3/uL (0.00-0.01); Neutrophils # (A) 6.02 X 10*3/uL (1.80-7.70); Neutrophils % (A) 73.5 %; Platelet Count 312 X 10*3/uL (140-440); RBC 4.79 X 10*6/uL (4.10-5.20); RDW 18.5 % (11.5-14.5)
[2023-05-31 09:05] LABS: BUN/Creat Ratio 9.16 Ratio (12.00-20.00); Blood Urea Nitrogen 29.3 mg/dL (9.0-27.0); Carbon Dioxide 26.5 mmol/L (21.6-31.8); Chloride 97 mmol/L (96-109); Glucose 226 mg/dL (70-110); Potassium 4.5 mmol/L (3.5-5.5); Sodium 135 mmol/L (135-145)
[2023-05-31 09:06] LABS: ALT 37 U/L (8-44); AST 35 U/L (13-35); Albumin 3.5 g/dL (3.8-4.9); Albumin/Globulin Ratio 0.97 Ratio (1.60-3.17); Alkaline Phosphatase 226 U/L (41-126); Calcium 9.1 mg/dL (8.7-10.3); Globulin 3.6 g/dL (1.6-3.3); Total Bilirubin 0.4 mg/dL (0.3-1.2); Total Protein 7.1 g/dL (6.2-8.2)
[2023-05-31 10:12] VITALS: BP 125/68; RESP 18; TEMP 97.8
--- NOTE | 2023-05-31 11:16 | P.PN ---
Subjective Patient is seen in follow-up for acute kidney injury, hemodialysis dependent. Resting in bed. On room air. Tolerating dialysis well. Denies chest pain or shortness of breath. No active complaints. Vital signs are stable. General: No acute distress. HEENT: Head exam is unremarkable. On room air. LUNGS: No audible rhonchi or wheezes. HEART: Rate and Rhythm are regular. ABDOMEN: Nontender. EXTREMITITES: No edema. Objective - Vital Signs Vital signs: Vital Signs Temp 97.8 F 05/31/23 10:10 Pulse 70 05/31/23 10:10 Resp 18 05/31/23 10:10 BP 125/68 05/31/23 10:10 Pulse Ox 97 05/31/23 07:58 FiO2 Intake & Output 05/30/23 05/31/23 05/31/23 18:59 06:59 18:59 Intake Total 500 400 Output Total 1100 1400 Balance -600 -1000 Weight 50.6 kg Intake: Hemodialysis 500 400 Output: Hemodialysis 1100 1400 Other: Voiding Method Toilet Toilet Toilet # Voids 1 2 - Labs CBC & Chem 7: 05/31/23 05:08 05/31/23 05:08 Labs: Abnormal Lab Results - Last 24 Hours (Table) 05/30/23 05/30/23 05/30/23 Range/Units 03:29 11:55 17:10 Hgb (12.0-15.0) g/dL MCH 24.9 L (27.0-32.0) pg MCHC 28.9 L (32.0-37.0) g/dL RDW 18.6 H (11.5-14.5) % Immature Gran # (0.00-0.04) X 10*3/uL BUN (9.0-27.0) mg/dL Creatinine (0.6-1.5) mg/dL Est GFR (CKD-EPI) (>=60) BUN/Creatinine Ratio (12.00-20.00) Ratio Glucose (70-110) mg/dL POC Glucose (mg/dL) 180 H 259 H (70-110) mg/dL Alkaline Phosphatase (41-126) U/L Albumin (3.8-4.9) g/dL Globulin (1.6-3.3) g/dL Albumin/Globulin Ratio (1.60-3.17) Ratio 05/30/23 05/31/23 05/31/23 Range/Units 21:00 05:08 05:08 Hgb 11.9 L (12.0-15.0) g/dL MCH 24.8 L (27.0-32.0) pg MCHC 29.7 L (32.0-37.0) g/dL RDW 18.5 H (11.5-14.5) % Immature Gran # 0.06 H (0.00-0.04) X 10*3/uL BUN 29.3 H (9.0-27.0) mg/dL Creatinine 3.2 H (0.6-1.5) mg/dL Est GFR (CKD-EPI) 16 L (>=60) BUN/Creatinine Ratio 9.16 L (12.00-20.00) Ratio Glucose 226 H (70-110) mg/dL POC Glucose (mg/dL) 356 H (70-110) mg/dL Alkaline Phosphatase 226 H (41-126) U/L Albumin 3.5 L (3.8-4.9) g/dL Globulin 3.6 H (1.6-3.3) g/dL Albumin/Globulin Ratio 0.97 L (1.60-3.17) Ratio 05/31/23 Range/Units 06:10 Hgb (12.0-15.0) g/dL MCH (27.0-32.0) pg MCHC (32.0-37.0) g/dL RDW (11.5-14.5) % Immature Gran # (0.00-0.04) X 10*3/uL BUN (9.0-27.0) mg/dL Creatinine (0.6-1.5) mg/dL Est GFR (CKD-EPI) (>=60) BUN/Creatinine Ratio (12.00-20.00) Ratio Glucose (70-110) mg/dL POC Glucose (mg/dL) 203 H (70-110) mg/dL Alkaline Phosphatase (41-126) U/L Albumin (3.8-4.9) g/dL Globulin (1.6-3.3) g/dL Albumin/Globulin Ratio (1.60-3.17) Ratio Assessment and Plan Plan: Assessment: 1. Acute kidney injury secondary to ATN secondary to cardiorenal syndrome. Started on hemodialysis 05/07/2023 due to severe volume overload and low urine output. Has permacath. 2. Acute on chronic systolic CHF with ejection fraction of 40-45% with severe pulmonary hypertension. 3. Anemia. Iron deficiency noted. s/p IV iron. On Aranesp. 4. Volume overload. Improved with ultrafiltration. 5. Diabetes mellitus. 6. Right heel cellulitis s/p antibiotics. Plan: Currently seen while undergoing hemodialysis. She will resume hemodialysis on TTS schedule next week. Maintain torsemide. Stopped SGLT2i as she's on HD. Advised patient to maintain low-salt diet and fluid restriction of less than 50 ounces per day upon discharge. Monitor for renal recovery outpatient. Phosphorus level 4.7 dated 05/15/2023.
[2023-05-31 12:12] VITALS: PULSE 76
[2023-05-31 12:50] LABS: Glucose,Whole Blood 313 mg/dL (70-110)
--- NOTE | 2023-05-31 13:14 | P.PN ---
Subjective Progress Note Date: 05/31/23 Principal diagnosis: Reason for follow-up is fever/pneumonia Patient is a 57-year-old female with a past medical history significant for diabetes mellitus, hypertension right heel diabetic foot wound and cellulitis with recent admission to the hospital local culture positive for Pseudomonas Enterococcus and the patient received 3-week course of IV Zosyn during the hospital stay the patient also developed renal failure requiring dialysis, presenting back to the hospital with worsening shortness of breath and also have a fever. Chest x-ray was suggestive of CHF, CT of the chest small bilateral effusion and cardiomegaly lymphadenopathy scattered throughout. On today's evaluation that is 05/31/2023, the patient continues to be afebrile patient is currently breathing comfortably on room air not requiring any oxygen, the patient denies having any chest pain shortness of breath occasional dry cough, the patient denies nausea vomiting no abdominal pain no diarrhea. Feeling better no new symptoms. Repeated white count of 8.20, creatinine 3.2 multiple blood culture has been negative Objective - Vital Signs Vital signs: Vital Signs Temp 97.8 F 05/31/23 10:10 Pulse 70 05/31/23 10:10 Resp 18 05/31/23 10:10 BP 125/68 05/31/23 10:10 Pulse Ox 97 05/31/23 07:58 FiO2 Intake & Output 05/30/23 05/31/23 05/31/23 18:59 06:59 18:59 Intake Total 500 400 Output Total 1100 1400 Balance -600 -1000 Weight 50.6 kg Intake: Hemodialysis 500 400 Output: Hemodialysis 1100 1400 Other: Voiding Method Toilet Toilet Toilet # Voids 1 2 - Exam GENERAL DESCRIPTION: Middle-age female lying in bed in no distress RESPIRATORY SYSTEM: Unlabored breathing , decreased breath sounds at bases HEART: S1 S2 regular rate and rhythm , ABDOMEN: Soft , no tenderness EXTREMITIES: Right heel wound is currently dressed no drainage on the dressing - Labs CBC & Chem 7: 05/31/23 05:08 05/31/23 05:08 Labs: Abnormal Lab Results - Last 24 Hours (Table) 05/30/23 05/30/23 05/30/23 Range/Units 03:29 11:55 17:10 Hgb (12.0-15.0) g/dL MCH 24.9 L (27.0-32.0) pg MCHC 28.9 L (32.0-37.0) g/dL RDW 18.6 H (11.5-14.5) % Immature Gran # (0.00-0.04) X 10*3/uL BUN (9.0-27.0) mg/dL Creatinine (0.6-1.5) mg/dL Est GFR (CKD-EPI) (>=60) BUN/Creatinine Ratio (12.00-20.00) Ratio Glucose (70-110) mg/dL POC Glucose (mg/dL) 180 H 259 H (70-110) mg/dL Alkaline Phosphatase (41-126) U/L Albumin (3.8-4.9) g/dL Globulin (1.6-3.3) g/dL Albumin/Globulin Ratio (1.60-3.17) Ratio 05/30/23 05/31/23 05/31/23 Range/Units 21:00 05:08 05:08 Hgb 11.9 L (12.0-15.0) g/dL MCH 24.8 L (27.0-32.0) pg MCHC 29.7 L (32.0-37.0) g/dL RDW 18.5 H (11.5-14.5) % Immature Gran # 0.06 H (0.00-0.04) X 10*3/uL BUN 29.3 H (9.0-27.0) mg/dL Creatinine 3.2 H (0.6-1.5) mg/dL Est GFR (CKD-EPI) 16 L (>=60) BUN/Creatinine Ratio 9.16 L (12.00-20.00) Ratio Glucose 226 H (70-110) mg/dL POC Glucose (mg/dL) 356 H (70-110) mg/dL Alkaline Phosphatase 226 H (41-126) U/L Albumin 3.5 L (3.8-4.9) g/dL Globulin 3.6 H (1.6-3.3) g/dL Albumin/Globulin Ratio 0.97 L (1.60-3.17) Ratio 05/31/23 Range/Units 06:10 Hgb (12.0-15.0) g/dL MCH (27.0-32.0) pg MCHC (32.0-37.0) g/dL RDW (11.5-14.5) % Immature Gran # (0.00-0.04) X 10*3/uL BUN (9.0-27.0) mg/dL Creatinine (0.6-1.5) mg/dL Est GFR (CKD-EPI) (>=60) BUN/Creatinine Ratio (12.00-20.00) Ratio Glucose (70-110) mg/dL POC Glucose (mg/dL) 203 H (70-110) mg/dL Alkaline Phosphatase (41-126) U/L Albumin (3.8-4.9) g/dL Globulin (1.6-3.3) g/dL Albumin/Globulin Ratio (1.60-3.17) Ratio Assessment and Plan (1) Pressure ulcer of right heel, stage 3 Current Visit: No Status: Acute Code(s): L89.613 - PRESSURE ULCER OF RIGHT HEEL, STAGE 3 SNOMED Code(s): 87166193954833 (2) Fever Current Visit: Yes Status: Acute Code(s): R50.9 - FEVER, UNSPECIFIED SNOMED Code(s): 453999067 Plan: 1-patient presented to hospital with fever also complaining of increasing shortness of breath and cough with concern for possible pneumonia versus line infection 2-patient did have right heel wound which seem to be healing well with no evidence of any cellulitis 3-local wound care to the right heel with Aquacel silver dressing change every 48 hour 4-patient did have resolution of her fever and white count is normal the patient blood cultures are negative that will make line related sepsis to be less likely, hence daptomycin was discontinued 5- patient did have mostly respiratory symptoms and was bringing up some purulent sputum, concerning for pneumonia also have elevated procalcitonin, sputum has been requested but not collected 6- patient did have resolution of her fever and patient did have a normal white count, patient has completed 2-week course of cefepime and is currently being monitored closely off antibiotic therapy Dictation was produced using [employer] dictation software. please excuse any grammatical, word or spelling errors. Time with Patient: Less than 30
== END 2023-05-31 13:26 | disposition home or self-care (01) | DRG 291 ==
LOC: EC 10:39 → 3SCARD 14:22 → OBSVTOIN 14:23 → 3SCARD 18:08 → 6NMEDSUR 05-24 23:15
PROVIDERS: ADMIT Family Medicine; ATTEND Family Medicine
PROC: 5A1D70Z Performance of Urinary Filtration, Intermittent, Less than 6 Hours Per Day (ICD-10-PCS; principal; 2023-05-14)
DX: I13.2 Hypertensive heart and chronic kidney disease with heart failure and with stage 5 chronic kidney disease, or end stage renal disease (principal); I50.43 Acute on chronic combined systolic (congestive) and diastolic (congestive) heart failure; L89.613 Pressure ulcer of right heel, stage 3; J18.9 Pneumonia, unspecified organism; J96.01 Acute respiratory failure with hypoxia; N18.6 End stage renal disease; N17.0 Acute kidney failure with tubular necrosis; J44.0 Chronic obstructive pulmonary disease with (acute) lower respiratory infection; L03.115 Cellulitis of right lower limb; D69.6 Thrombocytopenia, unspecified; D72.819 Decreased white blood cell count, unspecified; E11.22 Type 2 diabetes mellitus with diabetic chronic kidney disease; E11.42 Type 2 diabetes mellitus with diabetic polyneuropathy; E78.5 Hyperlipidemia, unspecified; R59.0 Localized enlarged lymph nodes; I27.20 Pulmonary hypertension, unspecified; E11.43 Type 2 diabetes mellitus with diabetic autonomic (poly)neuropathy; K31.84 Gastroparesis; I25.5 Ischemic cardiomyopathy; I42.8 Other cardiomyopathies; D63.1 Anemia in chronic kidney disease; I25.10 Atherosclerotic heart disease of native coronary artery without angina pectoris; E11.628 Type 2 diabetes mellitus with other skin complications; E61.1 Iron deficiency; I27.29 Other secondary pulmonary hypertension; B95.2 Enterococcus as the cause of diseases classified elsewhere; B96.5 Pseudomonas (aeruginosa) (mallei) (pseudomallei) as the cause of diseases classified elsewhere; R01.1 Cardiac murmur, unspecified; Z11.52 Encounter for screening for COVID-19; G25.81 Restless legs syndrome; I08.1 Rheumatic disorders of both mitral and tricuspid valves; Z79.51 Long term (current) use of inhaled steroids; Z79.4 Long term (current) use of insulin; Z79.84 Long term (current) use of oral hypoglycemic drugs; Z79.899 Other long term (current) drug therapy; Z99.2 Dependence on renal dialysis
CPT/HCPCS: 36415; 71045; 71046; 71250; 80048; 80053; 81001; 81050; 82728; 83036; 83540; 83550; 83605; 83735; 83880; 84100; 84145; 84156; 84484; 85025; 85027; 85610; 85730; 86140; 87040; 87449; 87636; 90935; 93005; 93308; 94640; 94760; 96374; 99285

== ENCOUNTER 2023-06-24 06:06 | Day surgery (SDC) | payer MEDICARE, OTHER ==
[~2023-06-24 06:06] MED LIST: ALPRAZolam 0.5 MG TAB PO PRN; HEPARIN SODIUM,PORCINE (1 ML) 2,500 UNIT in SODIUM CHLORIDE 0.9% 250 ML IRRIGATION PRN; HEPARIN SODIUM,PORCINE 10,000 UNIT in SODIUM CHLORIDE 0.9% 1,000 ML IRRIGATION PRN; NITROGLYCERIN SL TABS 0.4 MG TAB SUBLINGUAL PRN
[2023-06-24] MEDS: SODIUM CHLORIDE 0.9% 1,000 ML IV ONE (06:33)
[2023-06-24] MEDS: ALPRAZolam 0.25 MG TAB PO PRN (06:36)
[2023-06-24] MEDS: ASPIRIN 325 MG TAB PO STA (06:37)
[2023-06-24] MEDS: INSULIN ASPART (NovoLOG) 100 UNIT/ML VIAL SQ SCH ×2 (07:12→18:01)
[2023-06-24] MEDS ORDERED: LIDOCAINE 1% INJ 10MG/ML (20 ML MDV) ONE (07:16)
[2023-06-24] MEDS ORDERED: fentaNYL (PF) 50 MCG/ML 2 ML AMP ONE (07:16)
[2023-06-24 07:17] LABS: Glucose,Whole Blood 374 mg/dL (70-110)
[2023-06-24] MEDS: carvediloL 12.5 MG TAB PO STA (07:22)
[2023-06-24] MEDS: hydrALAZINE HCL 50 MG TAB PO STA (07:23)
[2023-06-24] MEDS: ISOSORBIDE MONONITRATE ER 15 MG TAB PO STA (07:23)
[2023-06-24] MEDS: ISOSORBIDE MONONITRATE ER 30 MG TAB.ER.24H PO STA (07:24)
[2023-06-24] MEDS: LIDOCAINE 1% INJ 10MG/ML (20 ML MDV) SQ ONE (07:44)
[2023-06-24] MEDS: MIDAZOLAM 2 MG/2 ML VIAL IVP ONE (07:51)
[2023-06-24] MEDS: fentaNYL (PF) 50 MCG/ML 2 ML AMP IVP ONE (07:51)
[2023-06-24 08:27] LABS: O2 Sat Blood Gas 74.6 %
[2023-06-24 08:28] LABS: O2 Sat Blood Gas 75.8 %
[2023-06-24] MEDS ORDERED: HEPARIN SODIUM 1,000 UN/ML (10ML VL) ONE (08:29)
[2023-06-24] MEDS: HEPARIN SODIUM 1,000 UN/ML (10ML VL) IVP ONE (08:31)
[2023-06-24] MEDS: CLOPIDOGREL 75 MG TAB PO ONE (08:34)
[2023-06-24] MEDS ORDERED: CLOPIDOGREL 75 MG TAB ONE (08:37)
--- NOTE | 2023-06-24 09:01 | P.CARDCATH ---
Date of Procedure: 06/24/23 Description of Procedure: DIAGNOSTIC CORONARY ANGIOGRAPHY, RIGHT and LEFT HEART CATH REPORT PROCEDURES PERFORMED: Left heart catheterization Right heart cath Selective coronary angiography Moderate conscious sedation 48 mins Right common femoral access Right common femoral arteriogram Right common femoral vein access INDICATION: New onset cardiomyopathy, NYHA class III symptoms 57-year-old prior history of CAD, hypertension, smoking, type 2 diabetes was admitted to the hospital in March with right lower foot infection. For this she was placed on long-term IV antibiotics which caused her to have MARYLOU requiring hemodialysis. Currently she is hemodialysis dependent with oliguria. She side stapler consulted when she was in the hospital for NSTEMI. She was found to have a cardiomyopathy and mild to moderate aortic stenosis. For this she was scheduled for a left and right heart catheterization. CONSENT: I have discussed the risks, benefits and alternative therapies for the above-mentioned procedure, sedation/analgesia and necessary blood product administration (if indicated, as they pertain to this patient). The patient has indicated understanding and acceptance of the risks and procedures discussed. Conscious Sedation: Patient's ECG, heart rate, blood pressure, pulse oximetry was monitored throughout the duration of procedure under the direct supervision. 1 mg Versed and 25 mg Fentanyl were used for induction of moderate conscious sedation. Total duration of 48 minutes. PROCEDURE:After the risks, benefits and alternatives of the above mentioned procedure explained in detail with the patient, informed consent was obtained. Patient was taken to the catheterization lab and prepped and draped in usual sterile fashion. Ultrasound was used to identify the right common femoral artery. 1% lidocaine was infiltrated over the right common femoral artery. Using ultrasound arterial access was obtained using micropuncture needle. A 6-[place] sheath was placed in the right common femoral artery using modified Seldinger technique. Ultrasound was used to identify the right common femoral vein. 1% lidocaine was infiltrated over the right common femoral vein. Using ultrasound venous access was obtained using a micropuncture needle. A 6 [place] sheath was placed in the right common femoral vein. A 6 [place]-Zbigniew catheter was advanced through the venous sheath. The tip balloon was infiltrated in the catheter tip was advanced under fluoroscopy guidance to release the right atrium. The catheter was manipulated to enter the right ventricle. Because the catheter tip could not be directed into the pulmonary artery, 02 wire was used as a support to direct the catheter into the pulmonary artery. The wire was removed and catheter was flushed. The catheter was advanced to the wedge position and wedge pressures were obtained. The catheter was pulled back into the pulmonary artery position and pulmonary artery pressures and samples were obtained. Thermodilution study was performed. The catheter was withdrawn to the right ventricle and pressures and samples for oxygen saturation were obtained. The catheter was withdrawn back to the right atrium and pressures and samples were obtained. Thermodilution and John study was performed. Venous and arterial sheaths were flushed. J tipped wire was advanced under fluoroscopic guidance. Over the wire JL4 diagnostic catheter was advanced. Wire was removed, catheter was flushed and manipulated under fluoroscopy to selectively engaged the left coronary ostium. Left coronary angioplasty was performed in different angiographic projections. This catheter was exchanged for a JR4 diagnostic catheter over the wire. The catheter was flushed and manipulated to cross the aortic valve. LV pressures were obtained. Pullback was performed across aortic valve and catheter was manipulated to selectively engage the right coronary ostium under fluoroscopic guidance. Right coronary angiography was performed in different angiographic projections. Catheter was removed over the wire. Femoral sheath was flushed. HEMODYNAMICS: Aortic Pressure: 134/61 mmHg. LV pressure: 140/9 mmHg. LVEDP 18 mmHg. RA 8/5 mmHg, mean RA 10 mmHg RV 40/5 mmHg, RVEDP 10 mmHg PA 40/10 mmHg, mean PA 20 mmHg PCW 10/12 mmHg, mean PCW 10 mmHg Hemoglobin 11, BSA 1.57, heart rate 77, RA sat 76% RV sat 76% PA sat 76% Arterial sat 98% John cardiac output 6.6 L/min John cardiac index 4.2 L/min/m Thermodilution cardiac output 4.6 L/min Thermodilution cardiac index 2.9 L/min/m SELECTIVE CORONARY ARTERIOGRAPHY: LEFT MAIN: The left main is a long large caliber vessel which trifurcates into the LAD, Ramus and circumflex. Left main is patent with mild luminal irregularities. LEFT ANTERIOR DESCENDING CORONARY ARTERY: LAD is a large caliber vessel. Proximal LAD has a prior stent starting from the ostium to the mid segment. It is patent. It is jailing the first diagonal branch which is a small caliber vessel around 1.75 mm. Diagonal 1 is diffusely diseased 80%. Mid and distal LAD appears patent with mild luminal irregularities RAMUS: Medium size 2 mm vessel, angiographically patent with mild luminal irregularities LEFT CIRCUMFLEX CORONARY ARTERY: It is nondominant vessel. Proximal LCx has 40 to 50% calcific diffuse disease. Mid and distal LCx is patent with mild luminal irregularities. LCx gives total of 4 OM branches. First OM is very small and has diffuse disease. Next 3 OM's are small and appears angiographically normal. RIGHT CORONARY ARTERY: Dominant vessel. Proximal RCA has an eccentric 70% stenosis. Mid and distal RCA has mild luminal irregularities. It bifurcates into PDA and PL branches which are small and patent with mild luminal irregularities. IMPRESSION: 70% eccentric proximal RCA disease 80% diffuse diagonal 1 disease which is very small vessel, jailed not amenable for intervention 50% proximal LCx disease Mild luminal irregularities otherwise Elevated LVEDP 18 mmHg Gradient of 5 mmHg across aortic valves. Normal right heart and PCW pressures. PLAN: IFR guided PCI of RCA with Dr Riddle Medical management for cardiomyopathy Aggressive risk factor modification for coronary artery disease Performing Physician Ziggy Jose MD FACC, RPVI Thank you for allowing [facility] to participate in this patient's care. Feel free to reach out in case of any followup questions.
[2023-06-24] MEDS: IOPAMIDOL-370 100ML BTL INTRATHECA ONE (09:11)
[2023-06-24] MEDS ORDERED: MAG HYDROX/AL HYDROX/SIMETH 30 ML CUP PO PRN (09:26)
[2023-06-24] MEDS ORDERED: ATROPINE SULFATE 0.1 MG/ML 10ML SYRINGE IV PRN (09:26)
[2023-06-24] MEDS ORDERED: ZOLPIDEM 5 MG TAB PO PRN (09:26)
[2023-06-24] MEDS ORDERED: RX INFO: IV CONTRAST WAS GIVEN 1 EACH MISC MISCELLANE PRN (09:26)
[2023-06-24] MEDS ORDERED: NITROGLYCERIN SL TABS 0.4 MG TAB SUBLINGUAL PRN (09:26)
--- NOTE | 2023-06-24 09:35 | P.CARDCATH ---
Date of Procedure: 06/24/23 Description of Procedure: PERCUTANEOUS TRANSLUMINAL CORONARY ANGIOPLASTY CLINICAL INFORMATION: The patient is a 57-year-old female with a history of CAD, end-stage renal disease, cardiomyopathy. She underwent cardiac catheterization by Dr. Jose and was found to have significant obstructive disease in the proximal RCA. Recommendations were made regarding angioplasty and stenting. The procedure as well as the risks and the complications were discussed with the patient who was in full understanding and agreement. PROCEDURE: A 6 [place] FR 4 guiding catheter was introduced into the system. After cannulating the right coronary ostium, a 0.014 BMW J wire was advanced across the lesion and positioned distally. Following that a [place] Trevor eye IVUS was introduced and images were obtained. Following that a 2.5 x 12 mm NC trek balloon was advanced and inflated at 10 atmosphere. Following that a 3.25 x 15 mm Xience rosina point stent was deployed. It was dilated at 16 cesia. Repeat IVUS imaging was performed and subsequently 3.5 x 12 mm NC trek balloon was advanced and 1 inflation at 10 cesia was done. After the last inflation, after appropriate wait, the balloon and the guidewire were withdrawn back into the guiding catheter. Images were obtained and repeated. Those images reveal stable successful stenting. At that point, the guiding catheter, the balloon, and guidewire were removed. The sheath was removed. Hemostasis was obtained with deployment of an Angio-Seal. A Vascade was deployed to obtain hemostasis after right femoral vein. There were no immediate complications. The patient was returned to the room in stable condition. Of note, the patient received 6000 units of heparin as well as Plavix. Her ACT was followed. There was no immediate complications. She had no chest discomfort, she had EKG changes that resolved at the end of the procedure. RESULTS: Successful stenting of the proximal RCA with reduction of stenosis from 70% to 0% with adjunctive IVUS imaging. RECOMMENDATIONS: The patient will continue on aspirin and Plavix without any interruption for 6 months in addition to aggressive coronary risks modifications, maintaining LDL below 70 mg/dL. The findings and recommendations were discussed with the patient and the family, they are in full understanding and agreement. Duration of sedation: 26 minutes
[2023-06-24 13:27] LABS: Glucose,Whole Blood 190 mg/dL (70-110)
[2023-06-24] MEDS: IPRATROPIUM-ALBUTEROL 3 ML NEB INHALATION SCH (14:46)
[2023-06-24] MEDS: SODIUM CHLORIDE 0.9% 1,000 ML in EMPTY BAG 1 BAG IV ONE (14:46)
[2023-06-24] MEDS: SODIUM CHLORIDE 0.9% 1,000 ML in EMPTY BAG 1 BAG IV SCH (14:46)
[2023-06-24] MEDS: GABAPENTIN 300 MG CAP PO SCH (16:12)
[2023-06-24] MEDS: hydrALAZINE HCL 50 MG TAB PO SCH (16:55)
[2023-06-24 17:52] LABS: Glucose,Whole Blood 306 mg/dL (70-110)
[2023-06-24] MEDS: carvediloL 12.5 MG TAB PO SCH (18:00)
[2023-06-24 20:38] LABS: Glucose,Whole Blood 197 mg/dL (70-110)
[2023-06-25 05:58] LABS: Glucose,Whole Blood 234 mg/dL (70-110)
[2023-06-25 06:09] LABS: African American GFR (CKD) 32 (>60 ml/min/1.73 sqM); Anion Gap 6 mmol/L; Blood Urea Nitrogen 39 mg/dL (7-17); Calcium 8.6 mg/dL (8.4-10.2); Carbon Dioxide 22 mmol/L (22-30); Chloride 108 mmol/L (98-107); Glucose 222 mg/dL (74-99); Non-African American GFR(CKD) 28 (>60 ml/min/1.73 sqM); Sodium 136 mmol/L (137-145)
[2023-06-25 07:33] VITALS: RESP 18
[2023-06-25 08:04] VITALS: PULSE 72
[2023-06-25] MEDS: ATORVASTATIN 40 MG TAB PO SCH (08:37)
[2023-06-25] MEDS: EZETIMIBE 10 MG TAB PO SCH (08:37)
[2023-06-25] MEDS: ISOSORBIDE MONONITRATE ER 15 MG TAB PO SCH (08:38)
[2023-06-25] MEDS: SERTRALINE 50 MG TAB PO SCH (08:38)
[2023-06-25] MEDS: CLOPIDOGREL 75 MG TAB PO SCH (08:38)
[2023-06-25] MEDS: ASPIRIN 81 MG PO SCH (08:38)
[2023-06-25 11:21] VITALS: BMI 22.1
--- NOTE | 2023-06-25 11:25 | P.DS ---
Providers Date of admission: 06/24/2023 Attending physician: Ziggy Jose MD Consults: 06/24/23 09:26 Consult Physician Routine Consulting Provider: [facility] Consult Reason/Comments: Post Interventional patient Do you want consulting provider notified?: Already Contacted 06/24/23 09:28 Consult Physician Routine Consulting Provider: Janey Nunez Consult Reason/Comments: ESRD Do you want consulting provider notified?: Yes Primary care physician: [facility] Course: 57-year-old female with past medical history of CAD, hypertension, smoking, type 2 diabetes presented to the hospital in March with l right foot infection. She was treated for chronic wound with IV antibiotics and thereafter patient developed MARYLOU requiring hemodialysis. Since then patient has been oliguric and has been hemodialysis dependent. Cardiology was consulted for elevated troponins and NSTEMI. She was treated medically for NSTEMI and had an echocardiogram which showed cardiomyopathy with an EF of 30 to 35% with mild to moderate aortic stenosis. Due to this he was scheduled for a left and right heart catheterization. Her right heart catheterization did not show significantly elevated right-sided pressures or elevated wedge pressures. Her left heart cath showed 70% eccentric blockage in the proximal RCA which required 3.25 x 15 mm Xience DALIA. This cath was done via right femoral approach. Radial approach was not used in order to preserve the arteries to be used for AV fistula for hemodialysis in future. There was no complication during the procedure. Patient was kept overnight for monitoring after the intervention. Patient had hemodialysis done today with no complications. She tolerated the procedure well. Patient denies having any chest pain chest pressure. She has been hemodynamically stable. Her labs were essentially within within normal ranges for her. Procedures: Left and right diagnostic heart catheterization PCI of RCA with 3.25 x 15 mm Xience DALIA Hemodialysis Patient Condition at Discharge: Good Plan - Discharge Summary Discharge Rx Participant: No New Discharge Prescriptions: New Clopidogrel [Plavix] 75 mg PO DAILY 90 Days #90 tab Aspirin 81 mg PO DAILY 90 Days #90 tab Continue Ezetimibe [Zetia] 10 mg PO DAILY Multivitamins, Thera [Multivitamin (formulary)] 1 tab PO DAILY rOPINIRole HCL [Requip] 1 mg PO HS carvediloL [Coreg*] 25 mg PO BID@0900,1700 #90 tab hydrALAZINE HCL [Apresoline] 50 mg PO TID 90 Days #270 tab Acetaminophen Tab [Tylenol] 500 mg PO Q6HR PRN tab PRN Reason: Fever And/ Or Pain Dapagliflozin Propanediol [Farxiga] 5 mg PO DAILY Sertraline [Zoloft] 50 mg PO DAILY Gabapentin [Neurontin] 300 mg PO TID #30 cap Torsemide [Demadex] 40 mg PO DAILY 90 Days #90 tab Isosorbide Mononitrate ER [Imdur] 15 mg PO DAILY 90 Days #90 tab INSULIN ASPART (NovoLOG) [NovoLOG (formulary)] 2 unit SQ AC-TID each Budesonide [Pulmicort] 0.5 mg INHALATION RT-BID 90 Days #180 ml Atorvastatin [Lipitor] 40 mg PO DAILY 90 Days #90 Discontinued Ipratropium-Albuterol Nebulize [Duoneb 0.5 mg-3 mg/3 ml Soln] 3 ml INHALATION RT-QID 90 Days #360 each Discharge Medication List Dapagliflozin Propanediol [Farxiga] 5 mg PO DAILY 04/17/23 [History] Ezetimibe [Zetia] 10 mg PO DAILY 04/17/23 [History] Multivitamins, Thera [Multivitamin (formulary)] 1 tab PO DAILY 04/17/23 [History] Sertraline [Zoloft] 50 mg PO DAILY 04/17/23 [History] rOPINIRole HCL [Requip] 1 mg PO HS 04/17/23 [History] Gabapentin [Neurontin] 300 mg PO TID #30 cap 05/11/23 [Rx] carvediloL [Coreg*] 25 mg PO BID@0900,1700 #90 tab 05/11/23 [Rx] Acetaminophen Tab [Tylenol] 500 mg PO Q6HR PRN tab 05/24/23 [Rx] Budesonide [Pulmicort] 0.5 mg INHALATION RT-BID 90 Days #180 ml 05/24/23 [Rx] INSULIN ASPART (NovoLOG) [NovoLOG (formulary)] 2 unit SQ AC-TID each 05/24/23 [Rx] Isosorbide Mononitrate ER [Imdur] 15 mg PO DAILY 90 Days #90 tab 05/24/23 [Rx] Torsemide [Demadex] 40 mg PO DAILY 90 Days #90 tab 05/24/23 [Rx] hydrALAZINE HCL [Apresoline] 50 mg PO TID 90 Days #270 tab 05/24/23 [Rx] Aspirin 81 mg PO DAILY 90 Days #90 tab 06/25/23 [Rx] Atorvastatin [Lipitor] 40 mg PO DAILY 90 Days #90 06/25/23 [Rx] Clopidogrel [Plavix] 75 mg PO DAILY 90 Days #90 tab 06/25/23 [Rx] Follow up Appointment(s)/Referral(s): Ziggy Jose MD [Medical Doctor] - 1 Week Patient Instructions/Handouts: Moderate Sedation (DC), After Radial Heart Catheterization (GEN) Activity/Diet/Wound Care/Special Instructions: *NO LIFTING, PUSHING, OR PULLING ANYTHING OVER 5 POUNDS FOR 5 DAYS *NO DRIVING FOR 3 DAYS *YOU CAN REMOVE YOUR DRESSING TOMORROW BUT DO NOT SUBMERSE YOUR PUNCTURE SITE IN WATER FOR A FEW DAYS TO PREVENT INFECTION - SO NO TUB BATHS, POOLS, HOT TUBS, DISHES...ETC *ANY SIGNS OF BLEEDING (HARDNESS, SWELLING, OR EXCESSIVE BRUISING) HOLD DIRECT PRESSURE ON YOUR PUNCTURE SITE AND COME TO THE NEAREST EMERGENCY ROOM TO GET YOUR PUNCTURE SITE LOOKED AT - DO NOT DRIVE YOURSELF! EITHER CALL EMS OR HAVE SOMEONE DRIVE YOU!
--- NOTE | 2023-06-25 12:01 | P.NPCON ---
History of Present Illness - Reason for Consult acute renal failure - History of Present Illness Reason for consultation: Acute kidney injury on chronic kidney disease History of present illness: Patient is a 57-year-old female seen in new consultation for acute kidney injury on chronic kidney disease, hemodialysis dependent. Patient is maintained on hemodialysis on Saturday schedule. Tolerating dialysis well today. Patient underwent cardiac catheterization yesterday with a stent placement to the RCA. Patient has history of systolic CHF with ejection fraction of 40 to 45% with severe pulmonary hypertension and moderate mitral and tricuspid regurgitation. She does make urine. No problems with dialysis. No edema. No chest pain or shortness of breath at this time. Patient does have history of diabetes. No vomiting or diarrhea. Hemodynamically stable. Wants to go home. Vital signs are stable. General: No acute distress. HEENT: Head exam is unremarkable. LUNGS: No audible rhonchi or wheezes. HEART: Rate and Rhythm are regular. ABDOMEN: Nontender. EXTREMITITES: No edema. Past Medical History Past Medical History: Diabetes Mellitus, Hyperlipidemia, Hypertension Additional Past Medical History / Comment(s): restless leg, neurothopy, Guillain-[place] History of Any Multi-Drug Resistant Organisms: None Reported Past Surgical History: Orthopedic Surgery, Tonsillectomy Additional Past Surgical History / Comment(s): "plate in left leg to straighten leg as a child" - plate removed, right total hip replacement due to a fracture from a fall Past Anesthesia/Blood Transfusion Reactions: No Reported Reaction Past Psychological History: No Psychological Hx Reported Smoking Status: Former smoker Past Alcohol Use History: None Reported Past Drug Use History: None Reported Medications and Allergies Home Medications Medication Instructions Recorded Confirmed Type Dapagliflozin Propanediol [Farxiga] 5 mg PO DAILY 04/17/23 06/24/23 History Ezetimibe [Zetia] 10 mg PO DAILY 04/17/23 06/24/23 History Multivitamins, Thera [Multivitamin 1 tab PO DAILY 04/17/23 06/24/23 History (formulary)] Sertraline [Zoloft] 50 mg PO DAILY 04/17/23 06/24/23 History rOPINIRole HCL [Requip] 1 mg PO HS 04/17/23 06/24/23 History Gabapentin [Neurontin] 300 mg PO TID #30 cap 05/11/23 06/24/23 Rx carvediloL [Coreg*] 25 mg PO BID@0900,1700 #90 tab 05/11/23 06/24/23 Rx Acetaminophen Tab [Tylenol] 500 mg PO Q6HR PRN tab 05/24/23 06/24/23 Rx Budesonide [Pulmicort] 0.5 mg INHALATION RT-BID 90 Days 05/24/23 06/24/23 Rx #180 ml INSULIN ASPART (NovoLOG) [NovoLOG 2 unit SQ AC-TID each 05/24/23 06/24/23 Rx (formulary)] Isosorbide Mononitrate ER [Imdur] 15 mg PO DAILY 90 Days #90 tab 05/24/23 06/24/23 Rx Torsemide [Demadex] 40 mg PO DAILY 90 Days #90 tab 05/24/23 06/24/23 Rx hydrALAZINE HCL [Apresoline] 50 mg PO TID 90 Days #270 tab 05/24/23 06/24/23 Rx Aspirin 81 mg PO DAILY 90 Days #90 tab 06/25/23 Rx Atorvastatin [Lipitor] 40 mg PO DAILY 90 Days #90 06/25/23 06/24/23 Rx Clopidogrel [Plavix] 75 mg PO DAILY 90 Days #90 tab 06/25/23 Rx Allergies Allergy/AdvReac Type Severity Reaction Status Date / Time No Known Allergies Allergy Verified 05/13/23 12:46 Physical Exam Vitals: Vital Signs Temp Pulse Pulse Pulse Resp BP BP 06/25/23 08:00 72 06/25/23 07:47 68 06/25/23 07:00 97.9 F 79 18 148/74 06/25/23 02:23 98.4 F 77 15 119/68 06/24/23 21:48 72 06/24/23 21:41 71 06/24/23 21:05 71 111/61 06/24/23 19:10 98.2 F 71 15 114/67 06/24/23 16:10 97.6 F 68 16 128/70 06/24/23 15:56 68 06/24/23 15:45 68 06/24/23 15:00 96.0 F L 66 16 116/68 06/24/23 14:37 56 L 16 106/56 06/24/23 13:28 64 16 119/60 06/24/23 12:05 64 16 119/67 Pulse Ox 06/25/23 08:00 06/25/23 07:47 06/25/23 07:00 97 06/25/23 02:23 97 06/24/23 21:48 06/24/23 21:41 06/24/23 21:05 06/24/23 19:10 95 06/24/23 16:10 96 06/24/23 15:56 06/24/23 15:45 06/24/23 15:00 97 06/24/23 14:37 96 06/24/23 13:28 94 L 06/24/23 12:05 98 Intake and Output 06/24/23 06/25/23 06/25/23 22:59 06:59 14:59 Intake Total 240 Balance 240 Intake: Oral 240 Other: Voiding Method Toilet Toilet # Voids 1 1 Weight 56.8 kg 56.8 kg Results - Lab Results Most recent lab results Calcium 8.6 mg/dL (8.4-10.2) 06/25/23 05:30 06/25/23 05:30 Assessment and Plan Plan: Assessment: 1. Acute kidney injury on chronic kidney disease, currently hemodialysis dependent. Maintain on hemodialysis on Saturday schedule. 2. Chronic systolic CHF ejection fraction of 40 to 45% with moderate mitral and tricuspid regurgitation and severe pulmonary hypertension. 3. Coronary disease status post RCA stenting June 24, 2023. 4. Diabetes mellitus. Plan: Currently seen while undergoing hemodialysis. Next treatment on . Decrease dose of gabapentin to 100 mg 3 times daily. Continue to monitor for renal recovery outpatient. Patient to resume torsemide outpatient. Thank you for the consultation. I will continue to follow the patient with you during her hospital stay.
[2023-06-25 12:29] LABS: Glucose,Whole Blood 179 mg/dL (70-110)
[2023-06-25] MEDS ORDERED: GABAPENTIN 100 MG CAP PO SCH (16:00)
[2023-06-25 19:32] VITALS: BP 117/69; TEMP 98
== END 2023-06-25 14:24 | disposition home or self-care (01) ==
LOC: CATHCVL 06:06 → 6NMEDSUR 09:07 → CATHCVL 06-25 14:24
PROVIDERS: ATTEND Student in an Organized Health Care Education/Training Program
DX: I08.3 Combined rheumatic disorders of mitral, aortic and tricuspid valves (principal); I50.22 Chronic systolic (congestive) heart failure; I13.2 Hypertensive heart and chronic kidney disease with heart failure and with stage 5 chronic kidney disease, or end stage renal disease; E11.22 Type 2 diabetes mellitus with diabetic chronic kidney disease; E78.5 Hyperlipidemia, unspecified; G25.81 Restless legs syndrome; I25.10 Atherosclerotic heart disease of native coronary artery without angina pectoris; N18.6 End stage renal disease; I27.20 Pulmonary hypertension, unspecified; I42.9 Cardiomyopathy, unspecified; N17.9 Acute kidney failure, unspecified; Z79.02 Long term (current) use of antithrombotics/antiplatelets; Z79.4 Long term (current) use of insulin; Z79.51 Long term (current) use of inhaled steroids; Z79.82 Long term (current) use of aspirin; Z79.84 Long term (current) use of oral hypoglycemic drugs; Z79.899 Other long term (current) drug therapy; Z87.891 Personal history of nicotine dependence; Z95.5 Presence of coronary angioplasty implant and graft; Z99.2 Dependence on renal dialysis
CPT/HCPCS: 94640 ×3; 92978; 93460; 76937; 80048; 85018; 82810; G0257; C9600; C1769 ×4; C1760 ×2; C1887; C1751; C1894; C1753; C1874; C1725 ×2; J2250; J2001; J3010; J1644; Q9967; 90935

== ENCOUNTER → 2023-08-09 | Outpatient (CLI) | payer MEDICARE, OTHER ==
--- NOTE | 2023-08-09 11:29 | XR ---
"EXAMINATION TYPE: XR ankle complete RT DATE OF EXAM: 08/09/2023 COMPARISON: NONE HISTORY: Pain FINDINGS: Three views of the ankle demonstrate the ankle mortise to be intact and symmetric. There is a mildly displaced distal fibular fracture. Vascular calcifications and diffuse soft tissue edema. Mild generalized demineralization. Ulceration suspected along plantars as adjacent calcaneus. No destructive changes and osteopenia. Lar ge calcaneal spur IMPRESSION: 1. Mildly displaced acute distal fibular fracture. 2. No diagnostic evidence of osteomyelitis. Diffuse soft tissue edema with plantar surface ulceration . A Yellow level critical message alert has been initiated for Ronen Mayen DPM via the [employer] 36 0 | Critical Results System on 08/09/2023 11:27 AM. This message alert has been sent to Ronen Mayen DPM via the preferences provided by the clinician for the receipt of Radiology Critical Findings. Ms ssage ID [id number]."
== END | disposition home or self-care (01) ==
LOC: RADXRMAIN 10:48
PROVIDERS: ATTEND Podiatrist
DX: R60.0 Localized edema (principal); S82.421A Displaced transverse fracture of shaft of right fibula, initial encounter for closed fracture; S80.10XA Contusion of unspecified lower leg, initial encounter; L97.419 Non-pressure chronic ulcer of right heel and midfoot with unspecified severity; L97.512 Non-pressure chronic ulcer of other part of right foot with fat layer exposed; E11.40 Type 2 diabetes mellitus with diabetic neuropathy, unspecified; N17.9 Acute kidney failure, unspecified; D64.9 Anemia, unspecified; I10 Essential (primary) hypertension; X58.XXXA Exposure to other specified factors, initial encounter

== ENCOUNTER 2023-08-19 12:07 | Inpatient (IN) | payer MEDICARE ==
--- NOTE | 2023-08-19 12:36 | ED ---
General Adult HPI - General Chief complaint: Weakness Stated complaint: Weakness Time Seen by Provider: 08/19/23 12:15 Source: patient, EMS, RN notes reviewed, old records reviewed Mode of arrival: EMS - History of Present Illness Initial comments: This is a 57-year-old female who presents to the emergency department complaining of difficulty breathing. Patient states her shortness of breath started about a week ago and has gotten progressively worse. Patient states over the last day has gotten much worse. Patient states she has also noticed some swelling on her legs. Patient states her left leg is always smaller than the right leg and that is no different but they are both more edematous than normal. Patient denies any chest pain or palpitations. Patient [place] any fever chills or cough or patient has any abdominal pain. Patient denies any back pain. Patient has diabetes and is a smoker - Related Data Home Medications Medication Instructions Recorded Confirmed Dapagliflozin Propanediol [Farxiga] 5 mg PO DAILY 04/17/23 08/19/23 Ezetimibe [Zetia] 10 mg PO DAILY 04/17/23 08/19/23 Multivitamins, Thera [Multivitamin 1 tab PO DAILY 04/17/23 08/19/23 (formulary)] rOPINIRole HCL [Requip] 1 mg PO HS 04/17/23 08/19/23 Budesonide [Pulmicort] 0.5 mg INHALATION RT-BID PRN 08/19/23 08/19/23 Diclofenac Sodium [Voltaren] 75 mg PO BID 08/19/23 08/19/23 Gabapentin 600 mg PO QID 08/19/23 08/19/23 INSULIN ASPART (NovoLOG) [NovoLOG 10 unit SQ AC-TID 08/19/23 08/19/23 (formulary)] Isosorbide Mononitrate ER [Imdur] 15 mg PO DAILY 08/19/23 08/19/23 Spironolactone [Aldactone] 25 mg PO DAILY 08/19/23 08/19/23 hydrALAZINE HCL [Apresoline] 25 mg PO TID 08/19/23 08/19/23 lisinopriL [Zestril] 10 mg PO DAILY 08/19/23 08/19/23 Previous Rx's Medication Instructions Recorded Acetaminophen Tab [Tylenol] 500 mg PO Q6HR PRN tab 05/24/23 Torsemide [Demadex] 40 mg PO DAILY 90 Days #90 tab 05/24/23 Aspirin 81 mg PO DAILY 90 Days #90 tab 06/25/23 Atorvastatin [Lipitor] 40 mg PO DAILY 90 Days #90 06/25/23 Clopidogrel [Plavix] 75 mg PO DAILY 90 Days #90 tab 06/25/23 Allergies Allergy/AdvReac Type Severity Reaction Status Date / Time No Known Allergies Allergy Verified 08/19/23 13:55 Review of Systems ROS Statement: Those systems with pertinent positive or pertinent negative responses have been documented in the HPI. ROS Other: All systems not noted in ROS Statement are negative. Past Medical History Past Medical History: Diabetes Mellitus, Hyperlipidemia, Hypertension Additional Past Medical History / Comment(s): restless leg, neurothopy, Guillain-[place] History of Any Multi-Drug Resistant Organisms: None Reported Past Surgical History: Orthopedic Surgery, Tonsillectomy Additional Past Surgical History / Comment(s): "plate in left leg to straighten leg as a child" - plate removed, right total hip replacement due to a fracture from a fall Past Anesthesia/Blood Transfusion Reactions: No Reported Reaction Past Psychological History: No Psychological Hx Reported Smoking Status: Former smoker Past Alcohol Use History: None Reported Past Drug Use History: None Reported General Exam - General Exam Comments Initial Comments: GENERAL: Patient is well-developed and well-nourished. Patient is nontoxic and well-hydrated and is in mild distress. ENT: Neck is soft and supple. No significant lymphadenopathy is noted. Oropharynx is clear. Moist mucous membranes. Neck has full range of motion without eliciting any pain. EYES: The sclera were anicteric and conjunctiva were pink and moist. Extraocular movements were intact and pupils were equal round and reactive to light. Eyelids were unremarkable. PULMONARY: Unlabored respirations. Good breath sounds bilaterally. Patient has crackles in the bases bilaterally more so on the right than the left CARDIOVASCULAR: There is a regular rate and rhythm without any murmurs gallops or rubs. ABDOMEN: Soft and nontender with normal bowel sounds. No palpable organomegaly was noted. There is no palpable pulsatile mass. SKIN: Skin is clear with no lesions or rashes and otherwise unremarkable. NEUROLOGIC: Patient is alert and oriented x3. Cranial nerves II through XII are grossly intact. Motor and sensory are also intact. Normal speech, volume and content. MUSCULOSKELETAL: Normal extremities with adequate strength and full range of motion. Patient has 2+ edema on the right and 1+ edema on the left. Patient has a chronic wound on the right heel LYMPHATICS: No significant lymphadenopathy is noted PSYCHIATRIC: Normal psychiatric evaluation. Course Vital Signs 08/19/23 12:11 Temperature 97.8 F Pulse Rate 89 Respiratory 18 Rate Blood Pressure 166/78 Medical Decision Making - Medical Decision Making EKG is interpreted by myself but EKG shows a sinus rhythm at 89 bpm. Ali 97 QRS is 81 QT interval 356 QTc is 402. Patient's EKG shows no ST segment ovation or depression. Was pt. sent in by a medical professional or institution (, PA, [employer]PER[employer], urgent care, hospital, or detention...) When possible be specific @ -No Did you speak to anyone other than the patient for history (EMS, parent, family, police, friend...)? What history was obtained from this source @ -No Did you review nursing and triage notes (agree or disagree)? Why? @ -I reviewed and agree with nursing and triage notes Were old charts reviewed (outside hosp., previous admission, EMS record, old EKG, old radiological studies, urgent care reports/EKG's, detention records)? Report findings @ -I compared this sinus x-ray with the previous chest x-ray and this shows pulmonary edema. I also compared today's lab work with previous lab work and the renal function is improved on this lab work. Differential Diagnosis (chest pain, altered mental status, abdominal pain women, abdominal pain men, vaginal bleeding, weakness, fever, dyspnea, syncope, headache, dizziness, GI bleed, back pain, seizure, CVA, palpatations, mental health, musculoskeletal)? @ -Not applicable EKG interpreted by me (3pts min.). @ -See above X-rays interpreted by me (1pt min.). @ -Chest x-ray shows pulmonary edema CT interpreted by me (1pt min.). @ -None done U/S interpreted by me (1pt. min.). @ -None done What testing was considered but not performed or refused? (CT, X-rays, U/S, labs)? Why? @ -None What meds were considered but not given or refused? Why? @ -None Did you discuss the management of the patient with other professionals (professionals i.e. , PA, [employer], lab, RT, psych nurse, vp digital marketing social media and crm, liquor clerk, teacher, postal delivery officer, vocational case manager)? Give summary @ -I spoke with [facility] hospitalist and they agreed to admit the patient admit the patient wrote admitting orders Was smoking cessation discussed for >3mins.? @ -No Was critical care preformed (if so, how long)? @ -No Were there social determinants of health that impacted care today? How? (Homelessness, low income, unemployed, alcoholism, drug addiction, transportation, low edu. Level, literacy, decrease access to med. care, usp, rehab)? @ -No Was there de-escalation of care discussed even if they declined (Discuss DNR or withdrawal of care, Hospice)? DNR status @ -No What co-morbidities impacted this encounter? (DM, HTN, Smoking, COPD, CAD, Cancer, CVA, ARF, Chemo, Hep., AIDS, mental health diagnosis, sleep apnea, morbid obesity)? @ -None Was patient admitted / discharged? Hospital course, mention meds given and route, prescriptions, significant lab abnormalities, going to OR and other pertinent info. @ -Initially patient refused the Lasix but after the lab work came back and x- rays came back she did agree to taking Lasix. I admitted the patient to Dr. Schneider. I consult cardiology continue Lasix and Nitropaste on the floor. Undiagnosed new problem with uncertain prognosis? @ -No Drug Therapy requiring intensive monitoring for toxicity (Heparin, Nitro, Insulin, Cardizem)? @ -No Were any procedures done? @ -No Diagnosis/symptom? @ -Acute pulmonary edema Acute, or Chronic, or Acute on Chronic? @ -Acute Uncomplicated (without systemic symptoms) or Complicated (systemic symptoms)? @ -Complicated Side effects of treatment? @ -No Exacerbation, Progression, or Severe Exacerbation? @ -No Poses a threat to life or bodily function? How? (Chest pain, USA, VT, pneumonia, PE, COPD, DKA, ARF, appy, cholecystitis, CVA, Diverticulitis, Homicidal, Suicidal, threat to staff... and all critical care pts) @ -Yes this can lead to hypoxia and endorgan dysfunction Diagnosis/symptom? @ -Chronic wound to heal Acute, or Chronic, or Acute on Chronic? @ -Acute Uncomplicated (without systemic symptoms) or Complicated (systemic symptoms)? @ -Uncomplicated Side effects of treatment? @ -None Exacerbation, Progression, or Severe Exacerbation] @ -No Poses a threat to life or bodily function? @ -No - Lab Data Result diagrams: 08/19/23 12:42 08/19/23 12:42 Lab Results 08/19/23 08/19/23 08/19/23 Range/Units 12:42 12:42 12:42 WBC 9.2 (3.8-10.6) k/uL RBC 3.69 L (3.80-5.40) m/uL Hgb 10.5 L (11.4-16.0) gm/dL Hct 33.8 L (34.0-46.0) % MCV 91.6 (80.0-100.0) fL MCH 28.5 (25.0-35.0) pg MCHC 31.1 (31.0-37.0) g/dL RDW 16.7 H (11.5-15.5) % Plt Count 230 (150-450) k/uL MPV 9.7 Neutrophils % 83 % Lymphocytes % 6 % Monocytes % 5 % Eosinophils % 3 % Basophils % 1 % Neutrophils # 7.7 (1.3-7.7) k/uL Lymphocytes # 0.6 L (1.0-4.8) k/uL Monocytes # 0.5 (0-1.0) k/uL Eosinophils # 0.3 (0-0.7) k/uL Basophils # 0.1 (0-0.2) k/uL Hypochromasia Moderate Anisocytosis Slight PT 10.3 (10.0-12.5) sec INR 0.9 (<1.2) APTT 24.0 (22.0-30.0) sec Sodium 134 L (137-145) mmol/L Potassium 5.5 H (3.5-5.1) mmol/L Chloride 109 H (98-107) mmol/L Carbon Dioxide 20 L (22-30) mmol/L Anion Gap 5 mmol/L BUN 39 H (7-17) mg/dL Creatinine 1.51 H (0.52-1.04) mg/dL Est GFR (CKD-EPI)AfAm 44 (>60 ml/min/1.73 sqM) Est GFR (CKD-EPI)NonAf 38 (>60 ml/min/1.73 sqM) Glucose 423 H (74-99) mg/dL Plasma Lactic Acid [place] (0.7-2.0) mmol/L Calcium 7.9 L (8.4-10.2) mg/dL Magnesium 2.1 (1.6-2.3) mg/dL Total Bilirubin 0.5 (0.2-1.3) mg/dL AST 32 (14-36) U/L ALT 21 (4-34) U/L Alkaline Phosphatase 299 H (38-126) U/L Troponin I (0.000-0.034) ng/mL NT-Pro-B Natriuret Pep 51393 pg/mL Total Protein 5.6 L (6.3-8.2) g/dL Albumin 2.7 L (3.5-5.0) g/dL 08/19/23 08/19/23 Range/Units 12:42 12:42 WBC (3.8-10.6) k/uL RBC (3.80-5.40) m/uL Hgb (11.4-16.0) gm/dL Hct (34.0-46.0) % MCV (80.0-100.0) fL MCH (25.0-35.0) pg MCHC (31.0-37.0) g/dL RDW (11.5-15.5) % Plt Count (150-450) k/uL MPV Neutrophils % % Lymphocytes % % Monocytes % % Eosinophils % % Basophils % % Neutrophils # (1.3-7.7) k/uL Lymphocytes # (1.0-4.8) k/uL Monocytes # (0-1.0) k/uL Eosinophils # (0-0.7) k/uL Basophils # (0-0.2) k/uL Hypochromasia Anisocytosis PT (10.0-12.5) sec INR (<1.2) APTT (22.0-30.0) sec Sodium (137-145) mmol/L Potassium (3.5-5.1) mmol/L Chloride (98-107) mmol/L Carbon Dioxide (22-30) mmol/L Anion Gap mmol/L BUN (7-17) mg/dL Creatinine (0.52-1.04) mg/dL Est GFR (CKD-EPI)AfAm (>60 ml/min/1.73 sqM) Est GFR (CKD-EPI)NonAf (>60 ml/min/1.73 sqM) Glucose (74-99) mg/dL Plasma Lactic Acid [place] 0.6 L (0.7-2.0) mmol/L Calcium (8.4-10.2) mg/dL Magnesium (1.6-2.3) mg/dL Total Bilirubin (0.2-1.3) mg/dL AST (14-36) U/L ALT (4-34) U/L Alkaline Phosphatase (38-126) U/L Troponin I 0.012 (0.000-0.034) ng/mL NT-Pro-B Natriuret Pep pg/mL Total Protein (6.3-8.2) g/dL Albumin (3.5-5.0) g/dL Disposition Clinical Impression: Nonhealing wound of heel, Acute pulmonary edema Disposition: ADMITTED IP TO THIS [facility] Time of Disposition: 14:28
[2023-08-19 13:04] LABS: INR 0.9 (<1.2); Prothrombin Time 10.3 sec (10.0-12.5)
[2023-08-19 13:13] LABS: ALT 21 U/L (4-34); AST 32 U/L (14-36); African American GFR (CKD) 44 (>60 ml/min/1.73 sqM); Albumin 2.7 g/dL (3.5-5.0); Alkaline Phosphatase 299 U/L (38-126); Anion Gap 5 mmol/L; Blood Urea Nitrogen 39 mg/dL (7-17); Calcium 7.9 mg/dL (8.4-10.2); Carbon Dioxide 20 mmol/L (22-30); Chloride 109 mmol/L (98-107); Glucose 423 mg/dL (74-99); Magnesium 2.1 mg/dL (1.6-2.3); Non-African American GFR(CKD) 38 (>60 ml/min/1.73 sqM); Potassium 5.5 mmol/L (3.5-5.1); Sodium 134 mmol/L (137-145); Total Bilirubin 0.5 mg/dL (0.2-1.3); Total Protein 5.6 g/dL (6.3-8.2)
--- NOTE | 2023-08-19 13:15 | XR ---
EXAMINATION TYPE: XR chest 2V DATE OF EXAM: 08/19/2023 COMPARISON: 05/16/2023 HISTORY: 57-year-old female shortness of breath, difficulty breathing, weight gain TECHNIQUE: AP and lateral views FINDINGS: Right anterior chest wall double-lumen hemodialysis catheter with tips at the upper right atrium. Hea rt mildly enlarged. Diffuse interstitial opacity is present. Trace effusions on the lateral view. IMPRESSION: Correlate for fluid overload or mild CHF with pulmonary vascular congestion and trace effusions.
[2023-08-19 13:22] LABS: NT-Pro-B-Type Natriuretic Pept 15300 pg/mL
[2023-08-19 13:24] LABS: Anisocytosis Slight; Basophils # (A) 0.1 k/uL (0-0.2); Basophils % (A) 1 %; Eosinophils # (A) 0.3 k/uL (0-0.7); Eosinophils % (A) 3 %; HCT 33.8 % (34.0-46.0); HGB 10.5 gm/dL (11.4-16.0); Hypochromasia Moderate; Lymphocytes # (A) 0.6 k/uL (1.0-4.8); Lymphocytes % (A) 6 %; MCH 28.5 pg (25.0-35.0); MCHC 31.1 g/dL (31.0-37.0); MCV 91.6 fL (80.0-100.0); Mean Platelet Volume 9.7; Monocytes # (A) 0.5 k/uL (0-1.0); Monocytes % (A) 5 %; Neutrophils # (A) 7.7 k/uL (1.3-7.7); Neutrophils % (A) 83 %; Platelet Count 230 k/uL (150-450); RBC 3.69 m/uL (3.80-5.40); RDW 16.7 % (11.5-15.5); WBC 9.2 k/uL (3.8-10.6)
[2023-08-19] MEDS: FUROSEMIDE 10 MG/ML 4 ML VIAL IV STA (14:34)
[2023-08-19] MEDS: KETOROLAC 15 MG/ML 1 ML VIAL IVP STA (14:42)
[2023-08-19] MEDS: LORazepam 2 MG/ML INJ IV STA (14:43)
[2023-08-19] MEDS: FUROSEMIDE 10 MG/ML 4 ML VIAL IV SCH (21:04)
[2023-08-19] MEDS ORDERED: BUDESONIDE 0.5 MG/2 ML NEBU INHALATION PRN (21:26)
[2023-08-19] MEDS: GABAPENTIN 300 MG CAP PO SCH (22:20)
[2023-08-19] MEDS: hydrALAZINE HCL 25 MG TAB PO SCH (22:20)
[2023-08-19] MEDS: ACETAMINOPHEN TAB 500 MG TAB PO PRN (23:17)
[2023-08-20 08:44] LABS: Glucose,Whole Blood 286 mg/dL (70-110)
[2023-08-20] MEDS: INSULIN ASPART (NovoLOG) 100 UNIT/ML VIAL SQ SCH ×2 (09:28→17:04)
[2023-08-20] MEDS: CLOPIDOGREL 75 MG TAB PO SCH (09:32)
[2023-08-20] MEDS: ATORVASTATIN 40 MG TAB PO SCH (09:35)
[2023-08-20] MEDS: SPIRONOLACTONE 25 MG TAB PO SCH (09:36)
[2023-08-20] MEDS: ISOSORBIDE MONONITRATE ER 30 MG TAB.ER.24H PO SCH (09:36)
[2023-08-20] MEDS: EZETIMIBE 10 MG TAB PO SCH (09:37)
[2023-08-20] MEDS: ETODOLAC 400 MG TAB PO SCH (11:14)
[2023-08-20] MEDS: DAPAGLIFLOZIN PROPANEDIOL 10 MG TABLET PO SCH (11:22)
[2023-08-20] MEDS: FUROSEMIDE 10 MG/ML 4 ML VIAL IV SCH (11:22)
[2023-08-20] MEDS: carvediloL 12.5 MG TAB PO SCH (11:22)
[2023-08-20] MEDS: ASPIRIN 81 MG PO SCH (11:22)
[2023-08-20] MEDS: lisinopriL 10 MG TAB PO SCH (11:45)
[2023-08-20] MEDS: DAPAGLIFLOZIN PROPANEDIOL 5 MG TABLET PO SCH (11:45)
[2023-08-20] MEDS: TORSEMIDE 20 MG TAB PO SCH (11:46)
--- NOTE | 2023-08-20 11:52 | P.CRDCN ---
History of Present Illness History of present illness: HISTORY OF PRESENT ILLNESS: This is a 57-year-old female with a past medical history significant for coronary artery disease with previous stenting, cardiomyopathy, hypertension, hyperlipidemia, diabetes, severe pulmonary hypertension, COPD, and chronic kidney disease previously on hemodialysis. Patient follows in the office with Dr. Jose. We have been asked to see the patient in consultation for congestive heart failure. Patient examined at the bedside in the emergency room. Patient presented to the hospital with a chief complaint of shortness of breath. She reports her shortness of breath started about a week ago. She also reports lower extremity edema. Patient was previously on hemodialysis for renal failure. However she states she is no longer on hemodialysis and had her last session approximately 3 weeks ago. Patient's creatinine was 1.51 on admission which is improved from previous. Patient was found to be in acute CHF and was started on IV Lasix. Patient states she has been compliant with all of her medications. She also reports she has been compliant with a low-sodium diet. DIAGNOSTICS: - EKG reveals sinus mechanism with nonspecific ST-T wave changes. - Chest xray correlate for fluid overload or mild CHF with pulmonary vascular congestion and trace effusions. - Laboratory data: WBC 9.2. Hemoglobin 10.5. Platelet count 230. Sodium 134. Potassium 5.5. BUN 39. Creatinine 1.51. Troponin negative x 1. proBNP 15,300. - Current home cardiac medications include Aldactone 25 mg daily, lisinopril 10 mg daily, hydralazine 25 mg 3 times a day, Demadex 40 mg daily, Zetia 10 mg daily, Farxiga 5 mg daily, Plavix 75 mg daily, Lipitor 40 mg daily, aspirin 81 mg daily, Imdur 15 mg daily. - Most recent echocardiogram obtained in April 2023 revealing ejection fraction 35 to 40%, severe pulmonary hypertension, enlarged right ventricle, moderate MR, moderate TR - Cardiac catheterization history: 06/24/2023 with stenting of the proximal RCA REVIEW OF SYSTEMS: At the time of my exam: CONSTITUTIONAL: Denies fever or chills. HEENT: Denies blurred vision, vision changes, or eye pain. Denies hemoptysis CARDIOVASCULAR: Denies chest pain. Denies orthopnea. Denies PND. Denies palpitations RESPIRATORY: Denies shortness of breath. GASTROINTESTINAL: Denies abdominal pain. Denies nausea or vomiting. HEMATOLOGIC: Denies bleeding disorders. GENITOURINARY: Denies any blood in urine. SKIN: Denies pruitis. Denies rash. PHYSICAL EXAM: VITAL SIGNS: Reviewed. GENERAL: Well-developed in no acute distress. HEENT: Head is normocephalic. Pupils are equal, round. Sclerae anicteric. Mucous membranes of the mouth are moist. Neck supple. No JVD or thyromegaly LUNGS: Respirations even and unlabored. Lungs diminished with bibasilar crackles HEART: Regular rate and rhythm. S1 and S2 heard. ABDOMEN: Soft. Nondistended. Nontender. EXTREMITIES: Normal range of motion. No clubbing or cyanosis. Peripheral pulses intact. Bilateral lower extremity edema noted. Right worse than left NEUROLOGIC: Awake and alert. Oriented x 3. ASSESSMENT: Shortness of breath Acute on chronic heart failure with reduced EF Hyperkalemia Coronary artery disease with recent stenting of the proximal RCA, 06/24/2023 Ischemic cardiomyopathy Chronic kidney disease History of renal failure requiring hemodialysis, last session 3 weeks ago Hypertension Hyperlipidemia Diabetes Severe pulmonary hypertension COPD Former nicotine dependence PLAN: Obtain 2D echo to assess cardiac structure and function Continue IV Lasix. Decrease dosing to 40 mg every 12 hours Daily weights, accurate intake and output, and monitoring of kidney function Anticipate improvement in potassium levels with diuresis Discontinue lisinopril Begin Entresto starting tomorrow morning Increase Farxiga to 10 mg daily Add carvedilol 12.5 mg twice a day Continue to monitor blood pressure Further recommendations pending patient course Nurse practitioner note has been reviewed by physician. Signing provider agrees with the documented findings, assessment, and plan of care documented by S[employer] MACHINE OPERATOR as a scribe. Past Medical History Past Medical History: Diabetes Mellitus, Hyperlipidemia, Hypertension, Renal Disease Additional Past Medical History / Comment(s): restless leg, neurothopy, Guillain-[place], dialysis History of Any Multi-Drug Resistant Organisms: None Reported Past Surgical History: Orthopedic Surgery, Tonsillectomy Additional Past Surgical History / Comment(s): "plate in left leg to straighten leg as a child" - plate removed, right total hip replacement due to a fracture from a fall, dialysis Past Anesthesia/Blood Transfusion Reactions: No Reported Reaction Past Psychological History: No Psychological Hx Reported Smoking Status: Former smoker Past Alcohol Use History: None Reported Past Drug Use History: None Reported Medications and Allergies Home Medications Medication Instructions Recorded Confirmed Type Dapagliflozin Propanediol [Farxiga] 5 mg PO DAILY 04/17/23 08/19/23 History Ezetimibe [Zetia] 10 mg PO DAILY 04/17/23 08/19/23 History Multivitamins, Thera [Multivitamin 1 tab PO DAILY 04/17/23 08/19/23 History (formulary)] rOPINIRole HCL [Requip] 1 mg PO HS 04/17/23 08/19/23 History Acetaminophen Tab [Tylenol] 500 mg PO Q6HR PRN tab 05/24/23 08/19/23 Rx Torsemide [Demadex] 40 mg PO DAILY 90 Days #90 tab 05/24/23 08/19/23 Rx Aspirin 81 mg PO DAILY 90 Days #90 tab 06/25/23 08/19/23 Rx Atorvastatin [Lipitor] 40 mg PO DAILY 90 Days #90 06/25/23 08/19/23 Rx Clopidogrel [Plavix] 75 mg PO DAILY 90 Days #90 tab 06/25/23 08/19/23 Rx Budesonide [Pulmicort] 0.5 mg INHALATION RT-BID PRN 08/19/23 08/19/23 History Diclofenac Sodium [Voltaren] 75 mg PO BID 08/19/23 08/19/23 History Gabapentin 600 mg PO QID 08/19/23 08/19/23 History INSULIN ASPART (NovoLOG) [NovoLOG 10 unit SQ AC-TID 08/19/23 08/19/23 History (formulary)] Isosorbide Mononitrate ER [Imdur] 15 mg PO DAILY 08/19/23 08/19/23 History Spironolactone [Aldactone] 25 mg PO DAILY 08/19/23 08/19/23 History hydrALAZINE HCL [Apresoline] 25 mg PO TID 08/19/23 08/19/23 History lisinopriL [Zestril] 10 mg PO DAILY 08/19/23 08/19/23 History Allergies Allergy/AdvReac Type Severity Reaction Status Date / Time No Known Allergies Allergy Verified 08/19/23 13:55 Physical Exam Vitals: Vital Signs Temp Pulse Resp BP Pulse Ox 08/20/23 04:53 97.6 F 84 17 155/85 98 08/20/23 02:00 78 17 140/88 97 08/19/23 23:00 89 19 176/87 98 08/19/23 20:00 95 08/19/23 19:20 98.2 F 94 17 174/99 87 L 08/19/23 18:23 98.3 F 08/19/23 18:03 89 16 160/84 95 08/19/23 15:14 87 18 178/93 95 08/19/23 12:11 97.8 F 89 18 166/78 Intake and Output 08/19/23 08/20/23 08/20/23 22:59 06:59 14:59 Intake Total 240 Balance 240 Intake: Oral 240 Other: Voiding Method Bedside Commode # Voids 1 Weight 70.76 kg Results 08/19/23 12:42 08/19/23 12:42 Cardiac Enzymes 08/19/23 08/19/23 Range/Units 12:42 12:42 AST 32 (14-36) U/L Troponin I 0.012 (0.000-0.034) ng/mL Coagulation 08/19/23 Range/Units 12:42 PT 10.3 (10.0-12.5) sec APTT 24.0 (22.0-30.0) sec CBC 08/19/23 Range/Units 12:42 WBC 9.2 (3.8-10.6) k/uL RBC 3.69 L (3.80-5.40) m/uL Hgb 10.5 L (11.4-16.0) gm/dL Hct 33.8 L (34.0-46.0) % Plt Count 230 (150-450) k/uL Comprehensive Metabolic Panel 08/19/23 Range/Units 12:42 Sodium 134 L (137-145) mmol/L Potassium 5.5 H (3.5-5.1) mmol/L Chloride 109 H (98-107) mmol/L Carbon Dioxide 20 L (22-30) mmol/L BUN 39 H (7-17) mg/dL Creatinine 1.51 H (0.52-1.04) mg/dL Glucose 423 H (74-99) mg/dL Calcium 7.9 L (8.4-10.2) mg/dL AST 32 (14-36) U/L ALT 21 (4-34) U/L Alkaline Phosphatase 299 H (38-126) U/L Total Protein 5.6 L (6.3-8.2) g/dL Albumin 2.7 L (3.5-5.0) g/dL Current Medications Generic Name Dose Route Start Last Admin Trade Name Cliffq PRN Reason Stop Dose Admin Acetaminophen 500 mg 08/19/23 21:26 08/19/23 23:17 Acetaminophen Tab 500 Mg Tab PO 500 mg Q6HR PRN Administration Fever and/ or Pain Aspirin 81 mg 08/20/23 09:30 08/20/23 11:22 Aspirin 81 Mg PO 81 mg DAILY RYLIE Administration Atorvastatin Calcium 40 mg 08/20/23 09:00 08/20/23 09:35 Atorvastatin 40 Mg Tab PO 40 mg DAILY RYLIE Administration Budesonide 0.5 mg 08/19/23 21:26 Budesonide 0.5 Mg/2 Ml Nebu INHALATION RT-BID PRN Shortness Of Breath Carvedilol 12.5 mg 08/20/23 09:30 08/20/23 11:22 Carvedilol 12.5 Mg Tab PO 12.5 mg BID-W/MEALS RYLIE Administration Clopidogrel Bisulfate 75 mg 08/20/23 09:00 08/20/23 09:32 Clopidogrel 75 Mg Tab PO 75 mg DAILY RYLIE Administration Dapagliflozin 10 mg 08/20/23 09:15 08/20/23 11:22 Dapagliflozin Propanediol 10 Mg Tablet PO 10 mg DAILY RYLIE Administration Ezetimibe 10 mg 08/20/23 09:00 08/20/23 09:37 Ezetimibe 10 Mg Tab PO 10 mg DAILY RYLIE Administration Etodolac 400 mg 08/20/23 09:00 08/20/23 11:14 Etodolac 400 Mg Tab PO 400 mg BID RYLIE Administration Furosemide 40 mg 08/20/23 09:15 08/20/23 11:22 Furosemide 10 Mg/Ml 4 Ml Vial IV 40 mg Q12HR RYLIE Administration Gabapentin 600 mg 08/19/23 22:00 08/20/23 09:29 Gabapentin 300 Mg Cap PO 600 mg QID RYLIE Administration Hydralazine HCl 25 mg 08/19/23 22:00 08/20/23 09:35 Hydralazine Hcl 25 Mg Tab PO 25 mg TID RYLIE Administration Insulin Aspart 10 unit 08/20/23 07:30 08/20/23 09:28 Insulin Aspart (Novolog) 100 Unit/Ml Vial SQ 10 unit AC-TID PENDING SALE TO [facility] Administration Isosorbide Mononitrate 15 mg 08/20/23 09:00 08/20/23 09:36 Isosorbide Mononitrate Er 30 Mg Tab.Er.24h PO 15 mg DAILY RYLIE Administration Ropinirole HCl 1 mg 08/20/23 21:00 Ropinirole Hcl 1 Mg Tab PO HS PRN restless legs Ropinirole HCl 1 mg 08/20/23 21:00 Ropinirole Hcl 1 Mg Tab PO HS PENDING SALE TO [facility] Sacubitril/Valsartan 1 each 08/21/23 09:00 Sacubitril/Valsartan 24 Mg-26 Mg Tablet PO BID PENDING SALE TO [facility] Spironolactone 25 mg 08/20/23 09:00 08/20/23 09:36 Spironolactone 25 Mg Tab PO 25 mg DAILY PENDING SALE TO [facility] Administration Intake and Output 08/19/23 08/20/23 08/20/23 22:59 06:59 14:59 Intake Total 240 Balance 240 Intake: Oral 240 Other: Voiding Method Bedside Commode # Voids 1 Weight 70.76 kg 08/19/23 12:42 08/19/23 12:42
[2023-08-20 12:46] LABS: Glucose,Whole Blood 179 mg/dL (70-110)
[2023-08-20] MEDS ORDERED: DEXTROSE 50% SYRINGE 50 ML IVP PRN (13:36)
--- NOTE | 2023-08-20 13:37 | P.HPIM ---
History of Present Illness 57-year-old female came in with complaints of shortness of breath and orthopnea found to be in congestive heart failure exacerbation patient has congestive heart failure with reduced ejection fraction in the past patient has increasing pedal edema. Patient also has an ulcer in the right foot stage III-IV which appeared to be infected we will consult wound care and infectious disease. Patient was on hemodialysis during last hospitalization her creatinine presently is 1.5 which is significantly improved patient potassium is 5.5, patient is on Entresto and Aldactone Aldactone will be held Entresto will be continued since she is receiving IV Lasix and expecting her potassium to improve if it does not improve or get worse then Entresto need to be discontinued as well. Patient has hypervolemic hyponatremia and hyperglycemia. REVIEW OF SYSTEMS: CONSTITUTIONAL: No fever, no malaise, no fatigue. HEENT: No recent visual problems or hearing problems. Denied any sore throat. CARDIOVASCULAR as mentioned in HPI PULMONARY: No shortness of breath, no cough, no hemoptysis. GASTROINTESTINAL: No diarrhea, no nausea, no vomiting, no abdominal pain. NEUROLOGICAL: No headaches, no weakness, no numbness. HEMATOLOGICAL: Denies any bleeding or petechiae. GENITOURINARY: Denies any burning micturition, frequency, or urgency. MUSCULOSKELETAL/RHEUMATOLOGICAL: Denies any joint pain, swelling, or any muscle pain. ENDOCRINE: Denies any polyuria or polydipsia. The rest of the 14-point review of systems is negative. PHYSICAL EXAMINATION: GENERAL: The patient is alert and oriented x3, not in any acute distress. Well developed, well nourished. HEENT: Pupils are round and equally reacting to light. EOMI. No scleral icterus. No conjunctival pallor. Normocephalic, atraumatic. No pharyngeal erythema. No thyromegaly. CARDIOVASCULAR: S1 and S2 present. No murmurs, rubs, or gallops. PULMONARY: Chest is clear to auscultation, no wheezing or crackles. ABDOMEN: Soft, nontender, nondistended, normoactive bowel sounds. No palpable organomegaly. MUSCULOSKELETAL: No joint swelling or deformity. EXTREMITIES: No cyanosis, clubbing, bilateral pedal edema NEUROLOGICAL: Gross neurological examination did not reveal any focal deficits. SKIN: Patient has right plantar surface ulcer on the posterior foot stage III-IV with areas of tissue may need debridement, infectious disease and wound wound care will be consulted Assessment and plan -Congestive heart failure chronic systolic function with acute exacerbation: Judy ient is on IV Lasix which will be continued Entresto will be continued for now hold off Aldactone temporarily because of hyperkalemia if patient continues to be hyperkalemic Aldactone will be discontinued. Patient is on Farxiga -Chronic kidney disease stage III patient was on hemodialysis [place] cardiorenal syndrome which improved at this time -Right heel ulcer, wound care consultation and infectious disease consultation -Jarrell ischemic cardiomyopathy -Hypertension -Hyperlipidemia -Type 2 diabetes mellitus uncontrolled elevated blood sugars patient was resumed on home regimen along with sliding scale we will titrate the insulin -Severe pulmonary hypertension -COPD without any acute exacerbation DVT prophylaxis: Subcutaneous heparin Past Medical History Past Medical History: Diabetes Mellitus, Hyperlipidemia, Hypertension, Renal Disease Additional Past Medical History / Comment(s): restless leg, neurothopy, Guillain-[place], dialysis History of Any Multi-Drug Resistant Organisms: None Reported Past Surgical History: Orthopedic Surgery, Tonsillectomy Additional Past Surgical History / Comment(s): "plate in left leg to straighten leg as a child" - plate removed, right total hip replacement due to a fracture from a fall, dialysis Past Anesthesia/Blood Transfusion Reactions: No Reported Reaction Past Psychological History: No Psychological Hx Reported Smoking Status: Former smoker Past Alcohol Use History: None Reported Past Drug Use History: None Reported Medications and Allergies Home Medications Medication Instructions Recorded Confirmed Type Dapagliflozin Propanediol [Farxiga] 5 mg PO DAILY 04/17/23 08/19/23 History Ezetimibe [Zetia] 10 mg PO DAILY 04/17/23 08/19/23 History Multivitamins, Thera [Multivitamin 1 tab PO DAILY 04/17/23 08/19/23 History (formulary)] rOPINIRole HCL [Requip] 1 mg PO HS 04/17/23 08/19/23 History Acetaminophen Tab [Tylenol] 500 mg PO Q6HR PRN tab 05/24/23 08/19/23 Rx Torsemide [Demadex] 40 mg PO DAILY 90 Days #90 tab 05/24/23 08/19/23 Rx Aspirin 81 mg PO DAILY 90 Days #90 tab 06/25/23 08/19/23 Rx Atorvastatin [Lipitor] 40 mg PO DAILY 90 Days #90 06/25/23 08/19/23 Rx Clopidogrel [Plavix] 75 mg PO DAILY 90 Days #90 tab 06/25/23 08/19/23 Rx Budesonide [Pulmicort] 0.5 mg INHALATION RT-BID PRN 08/19/23 08/19/23 History Diclofenac Sodium [Voltaren] 75 mg PO BID 08/19/23 08/19/23 History Gabapentin 600 mg PO QID 08/19/23 08/19/23 History INSULIN ASPART (NovoLOG) [NovoLOG 10 unit SQ AC-TID 08/19/23 08/19/23 History (formulary)] Isosorbide Mononitrate ER [Imdur] 15 mg PO DAILY 08/19/23 08/19/23 History Spironolactone [Aldactone] 25 mg PO DAILY 08/19/23 08/19/23 History hydrALAZINE HCL [Apresoline] 25 mg PO TID 08/19/23 08/19/23 History lisinopriL [Zestril] 10 mg PO DAILY 08/19/23 08/19/23 History Allergies Allergy/AdvReac Type Severity Reaction Status Date / Time No Known Allergies Allergy Verified 08/19/23 13:55 Physical Exam Vitals: Vital Signs Temp Pulse Resp BP BP Pulse Ox 08/20/23 08:00 166/78 08/20/23 04:53 97.6 F 84 17 155/85 98 08/20/23 02:00 78 17 140/88 97 08/19/23 23:00 89 19 176/87 98 08/19/23 20:00 95 08/19/23 19:20 98.2 F 94 17 174/99 87 L 08/19/23 18:23 98.3 F 08/19/23 18:03 89 16 160/84 95 08/19/23 15:14 87 18 178/93 95 Intake and Output 08/19/23 08/20/23 08/20/23 22:59 06:59 14:59 Intake Total 240 Output Total 750 Balance 240 -750 Intake: Oral 240 Output: Urine 750 Other: Voiding Method Bedside Commode # Voids 1 Weight 70.76 kg Results CBC & Chem 7: 08/19/23 12:42 08/19/23 12:42 Labs: Abnormal Lab Results - Last 24 Hours (Table) 08/20/23 08/20/23 Range/Units 08:40 12:44 POC Glucose (mg/dL) 286 H 179 H (70-110) mg/dL
[2023-08-20 17:03] LABS: Glucose,Whole Blood 131 mg/dL (70-110)
[2023-08-20] MEDS ORDERED: NITROGLYCERIN OINT 1 INCH/GM PACKET TOPICAL SCH (18:00)
[2023-08-20] MEDS: HEPARIN SODIUM,PORCINE 5,000 UNIT/ML 1 ML VIAL SQ SCH (20:16)
[2023-08-20 20:20] LABS: Glucose,Whole Blood 131 mg/dL (70-110)
--- NOTE | 2023-08-20 21:17 | P.CONS ---
History of Present Illness - Reason for Consult Consult date: 08/20/23 Right heel wound Requesting physician: Susana Roman - Chief Complaint Shortness of breath x few days - History of Present Illness Patient is a 57-year-old female with a past medical history significant for diabetes mellitus hypertension hyperlipidemia history of renal insufficiency requiring dialysis currently not on dialysis and the patient also have a chronic nonhealing wound to the right heel area which has been there for couple of months now patient presenting to the ER yesterday afternoon for evaluation of increasing shortness of breath that has been progressively getting worse over the last 1 week also noticed to have increasing swelling to lower extremity the patient denies having any chest pain or palpitation no fever no chills no nausea no vomiting no abdominal pain or any diarrhea as far as the right heel wound has been nonhealing for couple of months patient not very clear about the local care that is being done for it patient denies having any pain to the right heel wound area or any foul-smelling drainage patient on presentation to the hospital was afebrile and no fever have been recorded subsequently patient was not tachycardic or hypotensive mildly hypoxic currently on 2 L current oxygen patient did have a white count of 9.2 creatinine is 1.51 potassium was 5.5 liver enzymes are normal NT proBNP was 15,300 patient did have a chest x-ray correlate for fluid overload or mild CHF with pulmonary vascular congestion and trace effusion infectious he was consulted for further management of the right heel wound and need for antibiotic therapy Review of Systems Positive point and negatives has been mentioned in the HPI, complete review of systems was performed and all other systems are negative Past Medical History Past Medical History: Diabetes Mellitus, Hyperlipidemia, Hypertension, Renal Disease Additional Past Medical History / Comment(s): restless leg, neurothopy, Guillain-[place], dialysis History of Any Multi-Drug Resistant Organisms: None Reported Past Surgical History: Orthopedic Surgery, Tonsillectomy Additional Past Surgical History / Comment(s): "plate in left leg to straighten leg as a child" - plate removed, right total hip replacement due to a fracture from a fall, dialysis Past Anesthesia/Blood Transfusion Reactions: No Reported Reaction Past Psychological History: No Psychological Hx Reported Smoking Status: Former smoker Past Alcohol Use History: None Reported Past Drug Use History: None Reported Medications and Allergies Home Medications Medication Instructions Recorded Confirmed Type rOPINIRole HCL [Requip] 1 mg PO HS 04/17/23 08/19/23 History Aspirin 81 mg PO DAILY 90 Days #90 tab 06/25/23 08/19/23 Rx INSULIN ASPART (NovoLOG) [NovoLOG 10 unit SQ AC-TID 08/19/23 08/19/23 History (formulary)] Acetaminophen Tab [Tylenol] 650 mg PO Q6HR PRN tab 09/27/23 Rx Bumetanide [BUMEX] 1 mg PO DAILY tab 09/27/23 Rx Clopidogrel [Plavix] 75 mg PO DAILY tab 09/27/23 Rx Darbepoetin Frantz [Aranesp] 40 mcg SQ Q7D each 09/27/23 Rx Docusate [Colace] 100 mg PO BID cap 09/27/23 Rx Doxycycline [Vibramycin] 100 mg PO BID 7 Days #14 cap 09/27/23 Rx Fluticasone Nasal [place] [Flonase 2 spray EA NOSTRIL DAILY ml 09/27/23 Rx Nasal [place]] Folic Acid 1 mg PO DAILY tab 09/27/23 Rx Insulin Detemir (Levemir) [Levemir] 10 unit SQ BID each 09/27/23 Rx Ipratropium-Albuterol Nebulize 3 ml INHALATION RT-QID PRN each 09/27/23 Rx [Duoneb 0.5 mg-3 mg/3 ml Soln] Isosorbide Mononitrate ER [Imdur] 30 mg PO DAILY tab 09/27/23 Rx Lidocaine 4% Patch 1 patch TOPICAL DAILY patch 09/27/23 Rx Melatonin 5 mg PO HS tab 09/27/23 Rx Metoprolol Succinate (ER) [Toprol 12.5 mg PO DAILY tab 09/27/23 Rx XL] Multivitamins, Thera [Multivitamin 1 each PO DAILY tab 09/27/23 Rx (formulary)] Spironolactone [Aldactone] 12.5 mg PO DAILY tab 09/27/23 Rx Thiamine [Vitamin B-1] 100 mg PO DAILY tab 09/27/23 Rx amLODIPine [Norvasc] 10 mg PO DAILY tab 09/27/23 Rx fluPHENAZine [Prolixin] 5 mg PO Q6HR PRN tab 09/27/23 Rx hydrALAZINE HCL [Apresoline] 25 mg PO TID tab 09/27/23 Rx rOPINIRole HCL [Requip] 1 mg PO HS PRN tab 09/27/23 Rx risperiDONE ODT [RisperDAL M-TAB] 2 mg PO BID tab 09/27/23 Rx Allergies Allergy/AdvReac Type Severity Reaction Status Date / Time No Known Allergies Allergy Verified 08/19/23 13:55 Physical Exam Vitals: Vital Signs Temp Pulse Resp BP BP Pulse Ox 08/20/23 08:00 166/78 08/20/23 04:53 97.6 F 84 17 155/85 98 08/20/23 02:00 78 17 140/88 97 08/19/23 23:00 89 19 176/87 98 08/19/23 20:00 95 08/19/23 19:20 98.2 F 94 17 174/99 87 L 08/19/23 18:23 98.3 F 08/19/23 18:03 89 16 160/84 95 08/19/23 15:14 87 18 178/93 95 Intake and Output 08/20/23 08/20/23 08/20/23 06:59 14:59 22:59 Output Total 750 Balance -750 Output: Urine 750 Other: Voiding Method Bedside Commode GENERAL DESCRIPTION: Middle-aged female lying in bed, no distress. No tachypnea or accessory muscle of respiration use. HEENT: Shows Pallor , no scleral icterus. Oral mucous membrane is dry. No pharyngeal erythema or thrush NECK: Trachea central, no thyromegaly. LUNGS: Unlabored breathing. Decreased breath sound at the base HEART: S1, S2, regular rate and rhythm. No loud murmur ABDOMEN: Soft, no tenderness , guarding or rigidity, no organomegaly EXTREMITIES: Right heel wound with no slough tissue no surrounding redness or foul-smelling drainage SKIN: No rash, no masses palpable. NEUROLOGICAL: The patient is awake, alert, oriented x3, mood and affect normal. Results CBC & Chem 7: 09/27/23 04:35 09/27/23 04:35 Labs: Abnormal Lab Results - Last 24 Hours (Table) 08/20/23 08/20/23 Range/Units 08:40 12:44 POC Glucose (mg/dL) 286 H 179 H (70-110) mg/dL Assessment and Plan (1) Type 2 diabetes mellitus with foot ulcer Status: Acute Code(s): E11.621 - TYPE 2 DIABETES MELLITUS WITH FOOT ULCER; L97.509 - NON-PRESSURE CHRONIC ULCER OTH PRT UNSP FOOT W UNSP SEVERITY SNOMED Code(s): 678971913 Plan: 1patient with chronic nonhealing wound to the right heel area which has been there for a couple of months now patient overall wound base looks clean with no slough tissue in the wound is not pulling out the wound more likely a pressure ulcer stage III with evidence of any secondary cellulitis 2-local wound care with Aquacel silver packing of the wound and keep the area of the pressure 3-no need for systemic antibiotic therapy We will follow on clinical condition and cultures to further adjust medication if needed Thank you for this consultation we will follow the patient along with you Dictation was produced using [employer] dictation software. please excuse any grammatical, word or spelling errors. Time with Patient: Greater than 30
[2023-08-21 05:53] LABS: Glucose,Whole Blood 257 mg/dL (70-110)
[2023-08-21] MEDS ORDERED: SACUBITRIL/VALSARTAN 24 MG-26 MG TABLET PO SCH (09:00)
[2023-08-21 10:18] LABS: African American GFR (CKD) 26 (>60 ml/min/1.73 sqM); Anion Gap 10 mmol/L; Blood Urea Nitrogen 50 mg/dL (7-17); Calcium 7.8 mg/dL (8.4-10.2); Carbon Dioxide 19 mmol/L (22-30); Chloride 107 mmol/L (98-107); Glucose 245 mg/dL (74-99); Non-African American GFR(CKD) 23 (>60 ml/min/1.73 sqM); Potassium 5.7 mmol/L (3.5-5.1); Sodium 136 mmol/L (137-145)
--- NOTE | 2023-08-21 10:27 | CA ---
Transthoracic Echo Report Name: Chelle Lin Age: 57 Gender: F : 1965 Exam Date: 08/20/2023 13:53 Exam Location: [facility] Ht (in): 63 Wt (lb): 156 Ordering Physician: Caroline Ruvalcaba Attending/Referring Phys: [id number], Jordon Assembler Dc Field Yoke Asuncion Johansen RCS Procedure CPT: Indications: LV function Cardiac Hx: Technical Quality: Good Contrast 1: Total Dose (mL): Contrast 2: Total Dose (mL): MEASUREMENTS (Male / Female) Normal Values 2D ECHO LV Diastolic Diameter PLAX 4.4 cm 4.2 - 5.9 / 3.9 - 5.3 cm LV Systolic Diameter PLAX 3.3 cm IVS Diastolic Thickness 1.0 cm 0.6 - 1.0 / 0.6 - 0.9 cm LVPW Diastolic Thickness 1.2 cm 0.6 - 1.0 / 0.6 - 0.9 cm LV Relative Wall Thickness 0.5 RV Internal Dim ED PLAX 3.5 cm LVOT Diameter 2.1 cm Aortic Root Diameter 2.6 cm LV Diastolic Volume MOD BP 110.7 cm??? 67 - 155 / 56 - 104 cm??? LV Systolic Volume MOD BP 43.5 cm??? 22 - 58 / 19 - 49 cm??? LV Ejection Fraction MOD BP 60.7 % >= 55 % LV Cardiac Index MOD BP 2846.3 cm???/min???m??? LV Diastolic Volume MOD 4C 111.2 cm??? LV Systolic Volume MOD 4C 46.3 cm??? LV Ejection Fraction MOD 4C 58.4 % LV Cardiac Index MOD 4C 2752.8 cm???/min???m??? LV Diastolic Length 4C 8.4 cm LV Systolic Length 4C 7.0 cm LV Diastolic Volume MOD 2C 107.4 cm??? LV Systolic Volume MOD 2C 40.3 cm??? LV Ejection Fraction MOD 2C 62.5 % LV Cardiac Index MOD 2C 2844.2 cm???/min???m??? LV Diastolic Length 2C 8.6 cm LV Systolic Length 2C 6.9 cm Ascending Aorta Diameter 2.5 cm DOPPLER AV Peak Velocity 193.1 cm/s AV Peak Gradient 14.9 mmHg AV Mean Velocity 141.5 cm/s AV Mean Gradient 8.6 mmHg AV Velocity Time Integral 40.1 cm LVOT Peak Velocity 118.5 cm/s LVOT Peak Gradient 5.6 mmHg LVOT Velocity Time Integral 20.8 cm LVOT Stroke Volume 69.0 cm??? LVOT Stroke Volume Index 39.7 ml/m??? LVOT Cardiac Index 2926.9 cm???/min???m??? AV Area Cont Eq vti 1.7 cm??? AV Area Cont Eq pk 2.0 cm??? Mitral E Point Velocity 99.0 cm/s Mitral A Point Velocity 46.9 cm/s Mitral E to A Ratio 2.1 MV Deceleration Time 157.6 ms MV E' Velocity 6.3 cm/s Mitral E to MV E' Ratio 15.7 TR Peak Velocity 337.9 cm/s TR Peak Gradient 45.7 mmHg Right Atrial Pressure 20.0 mmHg Pulmonary Artery Systolic Pressu 65.7 mmHg Right Ventricular Systolic Press 65.7 mmHg PV Peak Velocity 81.1 cm/s PV Peak Gradient 2.6 mmHg FINDINGS Left Ventricle Left ventricular ejection fraction is estimated at 60-65 %. Mildly increased septal wall thickness. Mildly increased posterior wall thickness. Mildly increased left ventricular diastolic volume. No obvious regional wall motion abnormalities. Right Ventricle Mild right ventricular dilatation with normal function. Severely elevated right ventricular systolic pressure. Right Atrium Mild right atrial dilatation. Left Atrium Mild left atrial dilatation. Mitral Valve Structurally normal mitral valve. No evidence for mitral valve prolapse. No mitral stenosis. Trace mitral regurgitation. Aortic Valve Trileaflet aortic valve. No aortic valve stenosis or regurgitation. Tricuspid Valve Structurally normal tricuspid valve. No tricuspid stenosis. Moderate tricuspid regurgitation. Pulmonic Valve Structurally normal pulmonic valve. No pulmonic stenosis. Trace pulmonic regurgitation. Pericardium No pericardial effusion. Aorta Normal size aortic root and proximal ascending aorta. CONCLUSIONS LVH with preserved systolic function. Increased right ventricular systolic pressures Previewed by: Dr. Kemal Givens MD (Electronically Signed) Final Date: 21 August 2023 10:26
[2023-08-21 11:33] LABS: Glucose,Whole Blood 279 mg/dL (70-110)
--- NOTE | 2023-08-21 12:48 | P.PN ---
Subjective HISTORY OF PRESENT ILLNESS: This is a 57-year-old female with a past medical history significant for coronary artery disease with previous stenting, cardiomyopathy, hypertension, hyperlipidemia, diabetes, severe pulmonary hypertension, COPD, and chronic kidney disease previously on hemodialysis. Patient follows in the office with Dr. Jose. We have been asked to see the patient in consultation for congestive heart failure. Patient examined at the bedside in the emergency room. Patient presented to the hospital with a chief complaint of shortness of breath. She reports her shortness of breath started about a week ago. She also reports l ower extremity edema. Patient was previously on hemodialysis for renal failure. However she states she is no longer on hemodialysis and had her last session approximately 3 weeks ago. Patient's creatinine was 1.51 on admission which is improved from previous. Patient was found to be in acute CHF and was started on IV Lasix. Patient states she has been compliant with all of her medications. S he also reports she has been compliant with a low-sodium diet. DIAGNOSTICS: - EKG reveals sinus mechanism with nonspecific ST-T wave changes. - Chest xray correlate for fluid overload or mild CHF with pulmonary vascular congestion and trace effusions. - Laboratory data: WBC 9.2. Hemoglobin 10.5. Platelet count 230. Sodium 134. Potassium 5.5. BUN 39. Creatinine 1.51. Troponin negative x 1. proBNP 15,300. - Current home cardiac medications include Aldactone 25 mg daily, lisinopril 10 mg daily, hydralazine 25 mg 3 times a day, Demadex 40 mg daily, Zetia 10 mg daily, Farxiga 5 mg daily, Plavix 75 mg daily, Lipitor 40 mg daily, aspirin 81 mg daily, Imdur 15 mg daily. - Most recent echocardiogram obtained in April 2023 revealing ejection fraction 35 to 40%, severe pulmonary hypertension, enlarged right ventricle, moderate MR, moderate TR - Cardiac catheterization history: 06/24/2023 with stenting of the proximal RCA August 21, 2023 Patient examined this morning at the bedside. Patient denies chest pain or pressure. She currently denies shortness of breath. She is laying flat in bed and appears comfortable. Patient's blood pressures have been on the low side with a systolic in the 90s. Creatinine today increased to 2. 3 1 from 1.5 yesterday. Potassium remains elevated at 5.7. The patient was post be started on Entresto this morning. However her echocardiogram came back with improved LV function at 60 to 65% PHYSICAL EXAM: VITAL SIGNS: Reviewed. GENERAL: Well-developed in no acute distress. HEENT: Head is normocephalic. Pupils are equal, round. Sclerae anicteric. Mucous membranes of the mouth are moist. Neck supple. No JVD or thyromegaly LUNGS: Respirations even and unlabored. Lungs diminished bilaterally HEART: Regular rate and rhythm. S1 and S2 heard. ABDOMEN: Soft. Nondistended. Nontender. EXTREMITIES: Normal range of motion. No clubbing or cyanosis. Peripheral pulses intact. Bilateral lower extremity edema noted. Right worse than left NEUROLOGIC: Awake and alert. Oriented x 3. ASSESSMENT: Shortness of breath Acute on chronic heart failure with recovered EF, previously 35 to 40% now 60 to 65% Hyperkalemia Acute kidney injury Coronary artery disease with recent stenting of the proximal RCA, 06/24/2023 Ischemic cardiomyopathy with recovered EF Chronic kidney disease History of renal failure requiring hemodialysis, last session 3 weeks ago Hypertension Hyperlipidemia Diabetes Severe pulmonary hypertension COPD Former nicotine dependence PLAN: Patient was supposed to be started on Entresto this morning. However, patient no longer needs this as her LV function has recovered Carvedilol has been decreased to 6.25 mg twice a day Discontinue hydralazine Discontinue IV Lasix Give 250 cc normal saline bolus Continue to monitor blood pressure Repeat kidney function in a.m. Further recommendations pending patient course Nurse practitioner note has been reviewed by physician. Signing provider agrees with the documented findings, assessment, and plan of care documented by DOUBLE CUTTER as a scribe. Objective - Vital Signs Vital signs: Vital Signs Temp 97.8 F 08/20/23 20:00 Pulse 59 L 08/21/23 08:00 Resp 17 08/21/23 08:00 BP 93/60 08/21/23 07:30 Pulse Ox 95 08/21/23 07:30 FiO2 Intake & Output 08/20/23 08/21/23 08/21/23 18:59 06:59 18:59 Intake Total 240 Output Total 750 Balance -750 240 Weight 75 kg 75 kg Intake: Oral 240 Output: Urine 750 Other: Voiding Method Bedside Commode Diaper Diaper Incontinent Incontinent # Voids 1 # Bowel Movements 1 - Labs CBC & Chem 7: 08/19/23 12:42 08/21/23 08:55 Labs: Abnormal Lab Results - Last 24 Hours (Table) 08/20/23 08/20/23 08/20/23 Range/Units 12:44 17:02 20:18 Sodium (137-145) mmol/L Potassium (3.5-5.1) mmol/L Carbon Dioxide (22-30) mmol/L BUN (7-17) mg/dL Creatinine (0.52-1.04) mg/dL Glucose (74-99) mg/dL POC Glucose (mg/dL) 179 H 131 H 131 H (70-110) mg/dL Calcium (8.4-10.2) mg/dL 08/21/23 08/21/23 08/21/23 Range/Units 05:50 08:55 11:32 Sodium 136 L (137-145) mmol/L Potassium 5.7 H (3.5-5.1) mmol/L Carbon Dioxide 19 L (22-30) mmol/L BUN 50 H (7-17) mg/dL Creatinine 2.31 H (0.52-1.04) mg/dL Glucose 245 H (74-99) mg/dL POC Glucose (mg/dL) 257 H 279 H (70-110) mg/dL Calcium 7.8 L (8.4-10.2) mg/dL
[2023-08-21] MEDS: carvediloL 6.25 MG TAB PO SCH (12:52)
[2023-08-21] MEDS: ONDANSETRON 4 MG/2 ML VIAL IVP PRN (12:59)
--- NOTE | 2023-08-21 13:00 | XR ---
EXAMINATION TYPE: XR foot complete RT DATE OF EXAM: 08/21/2023 COMPARISON: 04/18/2023 HISTORY: 49-year-old female pain after falling, unable to ambulate. Heel ulcer and foot pain. TECHNIQUE: 3 views FINDINGS: Osteopenia especially at the fifth toe redemonstrated. Vascular calcifications. There is a deep ulcer at the plantar heel. [id number] sized plantar heel spur. Nondisplaced fracture of the medial malleolus. There also appears to be an oblique fracture of the lateral malleolus displaced by 6 mm no . Resorptive changes of healing. IMPRESSION: 1. Subacute fractures of the medial and lateral malleolus. The lateral malleolus fracture was seen on the patient's prior 08/09/2023 exam. The medial malleolus fracture may be new in the interval. This w ould be an unstable ankle fracture. Interval 6 mm of displacement of the lateral malleolus. 2. Deep soft tissue ulcer at the plantar heel. No clear radiographic findings of a contiguous osteomy elitis at this time.
[2023-08-21] MEDS: SODIUM CHLORIDE 0.9% 250 ML IV SCH (13:02)
[2023-08-21] MEDS: SODIUM ZIRCONIUM CYCLOSILICATE 10 GM PACKET PO ONE (13:48)
--- NOTE | 2023-08-21 16:41 | P.PN ---
Subjective Progress Note Date: 08/21/23 57-year-old female came in with complaints of shortness of breath and orthopnea found to be in congestive heart failure exacerbation patient has congestive heart failure with reduced ejection fraction in the past patient has increasing pedal edema. Patient also has an ulcer in the right foot stage III-IV which appeared to be infected we will consult wound care and infectious disease. Patient was on hemodialysis during last hospitalization her creatinine presently is 1.5 which is significantly improved patient potassium is 5.5, patient is on Entresto and Aldactone Aldactone will be held Entresto will be continued since she is receiving IV Lasix and expecting her potassium to improve if it does not improve or get worse then Entresto need to be discontinued as well. Patient has hypervolemic hyponatremia and hyperglycemia. 08/21/2023 Was evaluated today on the medical floor. Patient was continued on IV Lasix overnight however she was no longer reporting any shortness of breath and her lower extremity edema has improved. She was taken off of the Lasix at this time due to increased creatinine up to 2.31 additionally potassium remains elevated at 5.7. Echocardiogram comes back showing an improved ejection fraction of 60 to 65% because of this and also the hyperkalemia patient will not be continued on entresto. Patient was evaluated by infectious disease who felt like that heel ulcer on the right side was more likely a pressure injury stage III and is recommending local wound care to continue with Aquacel. Patient is reporting significant pain to the right foot and feels like it is fractured. Upon review of the patient's chart she did have a x-ray completed of this 12 days ago ordered by her mineral surveyor Dr. Mayen. Ankle x-ray did review a mildly displaced acute distal fibular fracture. Repeat x-ray of the foot and ankle completed today does reveal a subacute fractures of the medial and lateral malleolus. The lateral malleolus fracture was seen on the patient's prior exam the medial malleolus fracture may be new in the interval and this would be considered an unstable ankle fracture. There is interval 6 mm displacement of the lateral malleolus. There is a deep soft tissue ulcer at the plantar heel with no clear radiographic findings of a contagious osteomyelitis at this time. Orthooedics was consulted for this. Review of Systems Constitutional: Denied any fatigue denied any fever. Cardio vascular: denied any chest pain, palpitations Gastrointestinal: reports nausea vomiting. No diarrhea. Pulmonary: Denied any shortness of breath cough Neurologic denied any new focal deficits All inpatient medications were reviewed and appropriate changes in these med ications as dictated in the interval history and assessment and plan. PHYSICAL EXAMINATION: GENERAL: The patient is alert and oriented x3, not in any acute distress. Well developed, well nourished. HEENT: Pupils are round and equally reacting to light. EOMI. No scleral icterus. No conjunctival pallor. Normocephalic, atraumatic. No pharyngeal erythema. No thyromegaly. CARDIOVASCULAR: S1 and S2 present. No murmurs, rubs, or gallops. PULMONARY: Chest is clear to auscultation, no wheezing or crackles. ABDOMEN: Soft, nontender, nondistended, normoactive bowel sounds. No palpable organomegaly. MUSCULOSKELETAL: No joint swelling or deformity. EXTREMITIES: No cyanosis, clubbing, bilateral pedal edema NEUROLOGICAL: Gross neurological examination did not reveal any focal deficits. SKIN: Patient has right plantar surface ulcer on the posterior foot stage III-IV with areas of tissue may need debridement, infectious disease and wound wound care will be consulted Assessment and plan -Congestive heart failure chronic systolic function with acute exacerbation: Treated with IV lasix and remains on farxiga. Patient had improved EF of 60-65% and was not started on entresto at this time. Lasix is being held. -Ischemic cardiomyopathy with improved EF. -Chronic kidney disease stage III patient was on hemodialysis due to cardiorenal syndrome and had improved kidney function is no longer a hemodialysis patient. Creatinine up to 2.3 today. Nephrology will be consulted. Due to the worsening creatinine, gabapentin dose has been decreased. Recommend to avoid nephrotoxic agents. Patient did receive fluid bolus also. Repeat labs in the AM. -Hyperkalemia treated with lokelma and repeat labs in the AM. -Nausea possibly from the elevated creatinine and hyperkalemia continue with antiemetics. -Subacute fracture of the medial and lateral malleolus, orthopedics was consulted. -Right heel stage III pressure injury continue local wound care with aquacel ID following. -Hypertension -Hyperlipidemia -Type 2 diabetes mellitus uncontrolled elevated blood sugars patient was resumed on home regimen along with sliding scale we will titrate the insulin, levemir was also added for improved glycemic control. -Severe pulmonary hypertension -COPD without any acute exacerbation -Peripheral neuropathy DVT prophylaxis: Subcutaneous heparin The impression and plan of care has been dictated by Susana Roman, Nurse Practitioner as directed. Dr. Ricardo MD I have performed a history and physical examination and medical decision making of this patient, discussed the same with the dictator, and agree with the dictators assessment and plan as written, documented as a scribe. Based on total visit time, I have performed more than 50% of this visit. Objective - Vital Signs Vital signs: Vital Signs Temp 97.8 F 08/20/23 20:00 Pulse 59 L 08/21/23 07:30 Resp 17 08/21/23 07:30 BP 93/60 08/21/23 07:30 Pulse Ox 95 08/21/23 07:30 FiO2 Intake & Output 08/20/23 08/21/23 08/21/23 18:59 06:59 18:59 Intake Total 240 Output Total 750 Balance -750 240 Weight 75 kg Intake: Oral 240 Output: Urine 750 Other: Voiding Method Bedside Commode Diaper Incontinent # Voids 1 # Bowel Movements 1 - Labs CBC & Chem 7: 08/19/23 12:42 08/21/23 08:55 Labs: Abnormal Lab Results - Last 24 Hours (Table) 08/20/23 08/20/23 08/20/23 Range/Units 08:40 12:44 17:02 POC Glucose (mg/dL) 286 H 179 H 131 H (70-110) mg/dL 08/20/23 08/21/23 Range/Units 20:18 05:50 POC Glucose (mg/dL) 131 H 257 H (70-110) mg/dL Assessment and Plan Time with Patient: Greater than 30
[2023-08-21 17:10] LABS: Glucose,Whole Blood 279 mg/dL (70-110)
[2023-08-21] MEDS: GABAPENTIN 300 MG CAP PO SCH (17:17)
[2023-08-21 20:09] LABS: Glucose,Whole Blood 249 mg/dL (70-110)
[2023-08-21] MEDS: INSULIN DETEMIR (LEVEMIR) 100 UNIT/ML SYR SQ SCH (21:30)
[2023-08-22] MEDS: HYDROcodone/APAP 5-325MG 1 EACH TAB PO PRN (03:11)
[2023-08-22 06:09] LABS: Glucose,Whole Blood 111 mg/dL (70-110)
[2023-08-22 08:23] LABS: African American GFR (CKD) 23 (>60 ml/min/1.73 sqM); Anion Gap 5 mmol/L; Blood Urea Nitrogen 59 mg/dL (7-17); Calcium 7.7 mg/dL (8.4-10.2); Carbon Dioxide 23 mmol/L (22-30); Chloride 109 mmol/L (98-107); Glucose 91 mg/dL (74-99); Non-African American GFR(CKD) 20 (>60 ml/min/1.73 sqM); Potassium 5.1 mmol/L (3.5-5.1); Sodium 137 mmol/L (137-145)
[2023-08-22] MEDS: SODIUM CHLORIDE 0.9% 1,000 ML IV SCH (09:00)
--- NOTE | 2023-08-22 10:16 | P.PN ---
Subjective HISTORY OF PRESENT ILLNESS: This is a 57-year-old female with a past medical history significant for coronary artery disease with previous stenting, cardiomyopathy, hypertension, hyperlipidemia, diabetes, severe pulmonary hypertension, COPD, and chronic kidney disease previously on hemodialysis. Patient follows in the office with Dr. Jose. We have been asked to see the patient in consultation for congestive heart failure. Patient examined at the bedside in the emergency room. Patient presented to the hospital with a chief complaint of shortness of breath. She reports her shortness of breath started about a week ago. She also reports l ower extremity edema. Patient was previously on hemodialysis for renal failure. However she states she is no longer on hemodialysis and had her last session approximately 3 weeks ago. Patient's creatinine was 1.51 on admission which is improved from previous. Patient was found to be in acute CHF and was started on IV Lasix. Patient states she has been compliant with all of her medications. S he also reports she has been compliant with a low-sodium diet. DIAGNOSTICS: - EKG reveals sinus mechanism with nonspecific ST-T wave changes. - Chest xray correlate for fluid overload or mild CHF with pulmonary vascular congestion and trace effusions. - Laboratory data: WBC 9.2. Hemoglobin 10.5. Platelet count 230. Sodium 134. Potassium 5.5. BUN 39. Creatinine 1.51. Troponin negative x 1. proBNP 15,300. - Current home cardiac medications include Aldactone 25 mg daily, lisinopril 10 mg daily, hydralazine 25 mg 3 times a day, Demadex 40 mg daily, Zetia 10 mg daily, Farxiga 5 mg daily, Plavix 75 mg daily, Lipitor 40 mg daily, aspirin 81 mg daily, Imdur 15 mg daily. - Most recent echocardiogram obtained in April 2023 revealing ejection fraction 35 to 40%, severe pulmonary hypertension, enlarged right ventricle, moderate MR, moderate TR - Cardiac catheterization history: 06/24/2023 with stenting of the proximal RCA August 21, 2023 Patient examined this morning at the bedside. Patient denies chest pain or pressure. She currently denies shortness of breath. She is laying flat in bed and appears comfortable. Patient's blood pressures have been on the low side with a systolic in the 90s. Creatinine today increased to 2. 3 1 from 1.5 yesterday. Potassium remains elevated at 5.7. The patient was post be started on Entresto this morning. However her echocardiogram came back with improved LV function at 60 to 65% August 22, 2023 Patient examined this morning at the bedside. Patient denies chest pain or pressure. She denies shortness of breath. Creatinine today increased to 2.54. Blood pressure has increased today. PHYSICAL EXAM: VITAL SIGNS: Reviewed. GENERAL: Well-developed in no acute distress. HEENT: Head is normocephalic. Pupils are equal, round. Sclerae anicteric. Mucous membranes of the mouth are moist. Neck supple. No JVD or thyromegaly LUNGS: Respirations even and unlabored. Lungs diminished bilaterally HEART: Regular rate and rhythm. S1 and S2 heard. ABDOMEN: Soft. Nondistended. Nontender. EXTREMITIES: Normal range of motion. No clubbing or cyanosis. Peripheral pulses intact. Right lower extremity edema with dressing noted. NEUROLOGIC: Awake and alert. Oriented x 3. ASSESSMENT: Shortness of breath Acute on chronic heart failure with recovered EF, previously 35 to 40% now 60 to 65% Hyperkalemia Acute kidney injury Coronary artery disease with recent stenting of the proximal RCA, 06/24/2023 Ischemic cardiomyopathy with recovered EF Chronic kidney disease History of renal failure requiring hemodialysis, last session 3 weeks ago Hypertension Hyperlipidemia Diabetes Severe pulmonary hypertension COPD Former nicotine dependence Right ankle wound with suspected fracture PLAN: Patient was supposed to be started on Entresto yesterday. However, patient no longer needs this as her LV function has recovered Carvedilol has been decreased to 6.25 mg twice a day Hydralazine and Lasix have been discontinued Discontinue Farxiga Begin IV fluids at 50 cc an hour Obtain renal artery duplex Obtain kidney ultrasound Continue to monitor blood pressure Repeat kidney function in a.m. Further recommendations pending patient course Nurse practitioner note has been reviewed by physician. Signing provider agrees with the documented findings, assessment, and plan of care documented by LOGISTICS TEAM LEADER as a scribe. Objective - Vital Signs Vital signs: Vital Signs Temp 97.5 F L 08/22/23 07:29 Pulse 66 08/22/23 07:29 Resp 17 08/22/23 07:29 BP 116/72 08/22/23 07:29 Pulse Ox 98 08/22/23 07:29 FiO2 Intake & Output 08/21/23 08/22/23 08/22/23 18:59 06:59 18:59 Weight 75 kg 75 kg 69.9 kg Other: Voiding Method Diaper Toilet Incontinent Diaper Incontinent # Voids 1 - Labs CBC & Chem 7: 08/19/23 12:42 08/22/23 07:37 Labs: Abnormal Lab Results - Last 24 Hours (Table) 08/21/23 08/21/23 08/21/23 Range/Units 08:55 08:55 11:32 Sodium 136 L (137-145) mmol/L Potassium 5.7 H (3.5-5.1) mmol/L Chloride (98-107) mmol/L Carbon Dioxide 19 L (22-30) mmol/L BUN 50 H (7-17) mg/dL Creatinine 2.31 H (0.52-1.04) mg/dL Glucose 245 H (74-99) mg/dL POC Glucose (mg/dL) 279 H (70-110) mg/dL Hemoglobin A1c 12.1 H (<=6.0) % Calcium 7.8 L (8.4-10.2) mg/dL 08/21/23 08/21/23 08/22/23 Range/Units 17:09 20:08 06:04 Sodium (137-145) mmol/L Potassium (3.5-5.1) mmol/L Chloride (98-107) mmol/L Carbon Dioxide (22-30) mmol/L BUN (7-17) mg/dL Creatinine (0.52-1.04) mg/dL Glucose (74-99) mg/dL POC Glucose (mg/dL) 279 H 249 H 111 H (70-110) mg/dL Hemoglobin A1c (<=6.0) % Calcium (8.4-10.2) mg/dL 08/22/23 Range/Units 07:37 Sodium (137-145) mmol/L Potassium (3.5-5.1) mmol/L Chloride 109 H (98-107) mmol/L Carbon Dioxide (22-30) mmol/L BUN 59 H (7-17) mg/dL Creatinine 2.56 H (0.52-1.04) mg/dL Glucose (74-99) mg/dL POC Glucose (mg/dL) (70-110) mg/dL Hemoglobin A1c (<=6.0) % Calcium 7.7 L (8.4-10.2) mg/dL
--- NOTE | 2023-08-22 10:56 | P.CONS ---
History of Present Illness - Reason for Consult Consult date: 08/22/23 wound care - History of Present Illness This is a 57-year-old patient known to the wound care center with a diabetic foot ulcer Perkins grade 3 to the right calcaneus. Patient has a stage II pressure ulcer. History of neuropathy and diabetes. Patient was ordered a negative pressure wound VAC but due to insurance we have not been able to get 1. We have been utilizing collagen to the site at this time. Original cause of wo und was Gradually Appeared. The date acquired was: 04/29/2023. The wound has been in treatment 8 weeks. The wound is currently classified as a Grade 2 wound with etiology of Diabetic Wound/Ulcer of the Lower Extremity and is located on the Right Calcaneus. The wound measures 3.2cm length x 1.6cm width x 0.6cm depth; 4.021cm^2 area and 2.413cm^3 volume. There is a large amount of serous drainage noted. Review Of Systems: Constitutional: No fever, no chills, no night sweats. No weight change. No weakness, fatigue or lethargy. No daytime sleepiness. Integumentary:reports wounds, no lesions. No rash or pruritus. No unusual bruising. No change in hair or nails. Physical exam: General Appearance: Alert, cooperative, no distress, appears stated age. Skin: See HPI all other Skin color, texture, tugor normal, no rashes or lesions. Neurologic: Alert oriented x3 Assessment: 1. Stage II pressure ulcer right calcaneus 2. Diabetic foot ulceration Perkins grade 3 Plan: 1. Apply collagen to the base. Negative pressure wound VAC at 125 mmHg with black foam to the right calcaneus. Change Saturday. Patient is set to return to the wound care center on August at 930. Thank you for the consultation any questions please contact the wound care center DNP note has been reviewed and discussed with Dr. Chavez and the impression and plan of care has been directed as dictated. Past Medical History Past Medical History: Diabetes Mellitus, Hyperlipidemia, Hypertension, Renal Disease Additional Past Medical History / Comment(s): restless leg, neurothopy, Guillain-[place], dialysis History of Any Multi-Drug Resistant Organisms: None Reported Past Surgical History: Orthopedic Surgery, Tonsillectomy Additional Past Surgical History / Comment(s): "plate in left leg to straighten leg as a child" - plate removed, right total hip replacement due to a fracture from a fall, dialysis Past Anesthesia/Blood Transfusion Reactions: No Reported Reaction Past Psychological History: No Psychological Hx Reported Smoking Status: Former smoker Past Alcohol Use History: None Reported Past Drug Use History: None Reported Medications and Allergies Home Medications Medication Instructions Recorded Confirmed Type Dapagliflozin Propanediol [Farxiga] 5 mg PO DAILY 04/17/23 08/19/23 History Ezetimibe [Zetia] 10 mg PO DAILY 04/17/23 08/19/23 History Multivitamins, Thera [Multivitamin 1 tab PO DAILY 04/17/23 08/19/23 History (formulary)] rOPINIRole HCL [Requip] 1 mg PO HS 04/17/23 08/19/23 History Acetaminophen Tab [Tylenol] 500 mg PO Q6HR PRN tab 05/24/23 08/19/23 Rx Torsemide [Demadex] 40 mg PO DAILY 90 Days #90 tab 05/24/23 08/19/23 Rx Aspirin 81 mg PO DAILY 90 Days #90 tab 06/25/23 08/19/23 Rx Atorvastatin [Lipitor] 40 mg PO DAILY 90 Days #90 06/25/23 08/19/23 Rx Clopidogrel [Plavix] 75 mg PO DAILY 90 Days #90 tab 06/25/23 08/19/23 Rx Budesonide [Pulmicort] 0.5 mg INHALATION RT-BID PRN 08/19/23 08/19/23 History Diclofenac Sodium [Voltaren] 75 mg PO BID 08/19/23 08/19/23 History Gabapentin 600 mg PO QID 08/19/23 08/19/23 History INSULIN ASPART (NovoLOG) [NovoLOG 10 unit SQ AC-TID 08/19/23 08/19/23 History (formulary)] Isosorbide Mononitrate ER [Imdur] 15 mg PO DAILY 08/19/23 08/19/23 History Spironolactone [Aldactone] 25 mg PO DAILY 08/19/23 08/19/23 History hydrALAZINE HCL [Apresoline] 25 mg PO TID 08/19/23 08/19/23 History lisinopriL [Zestril] 10 mg PO DAILY 08/19/23 08/19/23 History Allergies Allergy/AdvReac Type Severity Reaction Status Date / Time No Known Allergies Allergy Verified 08/19/23 13:55 Physical Exam Vitals: Vital Signs Temp Pulse Resp BP Pulse Ox 08/22/23 07:29 97.5 F L 66 17 116/72 98 08/22/23 02:00 97.4 F L 66 13 91/56 93 L 08/21/23 17:54 97.4 F L 69 16 144/74 93 L 08/21/23 17:08 97.5 F L 72 17 136/69 94 L 08/21/23 14:07 97.5 F L 71 16 132/76 90 L 08/21/23 13:00 16 Intake and Output 08/21/23 08/22/23 08/22/23 22:59 06:59 14:59 Output Total 550 Balance -550 Output: Urine 550 Straight 550 Other: Voiding Method Toilet Diaper Incontinent # Voids 1 Weight 75 kg 69.9 kg Results CBC & Chem 7: 08/19/23 12:42 08/22/23 07:37 Labs: Abnormal Lab Results - Last 24 Hours (Table) 08/21/23 08/21/23 08/21/23 Range/Units 08:55 11:32 17:09 Chloride (98-107) mmol/L BUN (7-17) mg/dL Creatinine (0.52-1.04) mg/dL POC Glucose (mg/dL) 279 H 279 H (70-110) mg/dL Hemoglobin A1c 12.1 H (<=6.0) % Calcium (8.4-10.2) mg/dL 08/21/23 08/22/23 08/22/23 Range/Units 20:08 06:04 07:37 Chloride 109 H (98-107) mmol/L BUN 59 H (7-17) mg/dL Creatinine 2.56 H (0.52-1.04) mg/dL POC Glucose (mg/dL) 249 H 111 H (70-110) mg/dL Hemoglobin A1c (<=6.0) % Calcium 7.7 L (8.4-10.2) mg/dL Assessment and Plan (1) Pressure ulcer of right heel, stage 2 Current Visit: Yes Status: Acute Code(s): L89.612 - PRESSURE ULCER OF RIGHT HEEL, STAGE 2 SNOMED Code(s): 68957940743560 (2) Type 2 diabetes mellitus with diabetic neuropathic arthropathy Current Visit: No Status: Acute Code(s): E11.610 - TYPE 2 DIABETES MELLITUS W DIABETIC NEUROPATHIC ARTHROPATHY SNOMED Code(s): 128558057301 (3) Type 2 diabetes mellitus with foot ulcer Current Visit: No Status: Acute Code(s): E11.621 - TYPE 2 DIABETES MELLITUS WITH FOOT ULCER; L97.509 - NON-PRESSURE CHRONIC ULCER OTH PRT UNSP FOOT W UNSP SEVERITY SNOMED Code(s): 871135767
--- NOTE | 2023-08-22 11:00 | P.NPCON ---
History of Present Illness - Reason for Consult acute renal failure - History of Present Illness Reason for consultation: Acute kidney injury History of present illness: Patient is a 57-year-old female seen in renal consultation for acute kidney injury. Patient was on hemodialysis with last hemodialysis treatment being July 02, 2023. Patient regained kidney function and dialysis catheter was subsequently removed. Patient's creatinine this admission was 1.5 and is up to 2.56 today. Patient came to the hospital due to shortness of breath. Patient received IV diuretics which was subsequently stopped due to worsening renal function. She received a 0.9 fluid bolus of 250 cc yesterday and was started on normal saline at 50 cc an hour this morning. She denies chest pain or shortness of breath. Bladder scan this morning showed 400 cc. Patient says she does not have any urge to urinate. She denies use of nonsteroidals. Denies family history of renal disease. Does admit to vomiting for the last 2 to 3 days. Oral intake has been poor. Patient does have history of coronary artery disease with cardiac stent. Patient also has longstanding history of diabetes. Echocardiogram this admission showed preserved ejection fraction. Denies gross hematuria or dysuria. Vital signs are stable. General: No acute distress. HEENT: Head exam is unremarkable. LUNGS: No audible rhonchi or wheezes. HEART: Rate and Rhythm are regular. ABDOMEN: Nontender. No distention. EXTREMITITES: Right lower extremity wrapped. No drainage. No edema left lower extremity. Past Medical History Past Medical History: Diabetes Mellitus, Hyperlipidemia, Hypertension, Renal Disease Additional Past Medical History / Comment(s): restless leg, neurothopy, Guillain-[place], dialysis History of Any Multi-Drug Resistant Organisms: None Reported Past Surgical History: Orthopedic Surgery, Tonsillectomy Additional Past Surgical History / Comment(s): "plate in left leg to straighten leg as a child" - plate removed, right total hip replacement due to a fracture from a fall, dialysis Past Anesthesia/Blood Transfusion Reactions: No Reported Reaction Past Psychological History: No Psychological Hx Reported Smoking Status: Former smoker Past Alcohol Use History: None Reported Past Drug Use History: None Reported Medications and Allergies Home Medications Medication Instructions Recorded Confirmed Type Dapagliflozin Propanediol [Farxiga] 5 mg PO DAILY 04/17/23 08/19/23 History Ezetimibe [Zetia] 10 mg PO DAILY 04/17/23 08/19/23 History Multivitamins, Thera [Multivitamin 1 tab PO DAILY 04/17/23 08/19/23 History (formulary)] rOPINIRole HCL [Requip] 1 mg PO HS 04/17/23 08/19/23 History Acetaminophen Tab [Tylenol] 500 mg PO Q6HR PRN tab 05/24/23 08/19/23 Rx Torsemide [Demadex] 40 mg PO DAILY 90 Days #90 tab 05/24/23 08/19/23 Rx Aspirin 81 mg PO DAILY 90 Days #90 tab 06/25/23 08/19/23 Rx Atorvastatin [Lipitor] 40 mg PO DAILY 90 Days #90 06/25/23 08/19/23 Rx Clopidogrel [Plavix] 75 mg PO DAILY 90 Days #90 tab 06/25/23 08/19/23 Rx Budesonide [Pulmicort] 0.5 mg INHALATION RT-BID PRN 08/19/23 08/19/23 History Diclofenac Sodium [Voltaren] 75 mg PO BID 08/19/23 08/19/23 History Gabapentin 600 mg PO QID 08/19/23 08/19/23 History INSULIN ASPART (NovoLOG) [NovoLOG 10 unit SQ AC-TID 08/19/23 08/19/23 History (formulary)] Isosorbide Mononitrate ER [Imdur] 15 mg PO DAILY 08/19/23 08/19/23 History Spironolactone [Aldactone] 25 mg PO DAILY 08/19/23 08/19/23 History hydrALAZINE HCL [Apresoline] 25 mg PO TID 08/19/23 08/19/23 History lisinopriL [Zestril] 10 mg PO DAILY 08/19/23 08/19/23 History Allergies Allergy/AdvReac Type Severity Reaction Status Date / Time No Known Allergies Allergy Verified 08/19/23 13:55 Physical Exam Vitals: Vital Signs Temp Pulse Resp BP Pulse Ox 08/22/23 07:29 97.5 F L 66 17 116/72 98 08/22/23 02:00 97.4 F L 66 13 91/56 93 L 08/21/23 17:54 97.4 F L 69 16 144/74 93 L 08/21/23 17:08 97.5 F L 72 17 136/69 94 L 08/21/23 14:07 97.5 F L 71 16 132/76 90 L 08/21/23 13:00 16 Intake and Output 08/21/23 08/22/23 08/22/23 22:59 06:59 14:59 Output Total 550 Balance -550 Output: Urine 550 Straight 550 Other: Voiding Method Toilet Diaper Incontinent # Voids 1 Weight 75 kg 69.9 kg Results - Lab Results Most recent lab results Calcium 7.7 mg/dL (8.4-10.2) L 08/22/23 07:37 Magnesium 2.1 mg/dL (1.6-2.3) 08/19/23 12:42 08/19/23 12:42 08/22/23 07:37 Assessment and Plan Plan: Assessment: 1. Acute kidney injury secondary to ATN secondary to cardiorenal syndrome. Creatinine 1.5 admission and is up to 2.56 today. Patient was on hemodialysis in the past with last treatment being July 02, 2023. Dialysis catheter was subsequently removed. 2. Volume overload. Improved with diuresis. 3. Acute on chronic diastolic CHF. 4. Diabetes mellitus. 5. Right foot wound. 6. Coronary disease with cardiac stenting. Plan: Maintain gentle IV hydration. Check abdominal ultrasound. Defer further management of vomiting to primary team. Follow-up renal duplex ultrasound. Avoid nephrotoxins. Continue to monitor renal function and urine output. Straight cath now and if persistently bladder scans show greater than 300 cc of urine, [place] catheter will be inserted. Continue to hold diuretics for now. Thank you for the consultation. I will continue to follow the patient with you during her hospital stay.
[2023-08-22 11:08] LABS: Appearance,Urine Cloudy (Clear); Bacteria,Urine Many /hpf; Bilirubin,Urine 1+ (Negative); Blood,Urine Negative (Negative); Budding Yeast,Urine Many /hpf; Color,Urine Light Yellow; Glucose,Urine (UA) 3+ (Negative); Hyaline Casts,Urine 3 /lpf (0-2); Ketones,Urine Negative (Negative); Leukocyte Esterase,Urine Large (Negative); Nitrite,Urine Negative (Negative); PH, Urine 5.5 (5.0-8.0); Protein,Urine 2+ (Negative); Specific Gravity,Urine 1.011 (1.001-1.035); Urobilinogen,Urine <2.0 mg/dL (<2.0); WBC,Urine 35 /hpf (0-5)
[2023-08-22 11:38] LABS: Glucose,Whole Blood 92 mg/dL (70-110)
--- NOTE | 2023-08-22 14:14 | P.PN ---
Subjective Progress Note Date: 08/22/23 57-year-old female came in with complaints of shortness of breath and orthopnea found to be in congestive heart failure exacerbation patient has congestive heart failure with reduced ejection fraction in the past patient has increasing pedal edema. Patient also has an ulcer in the right foot stage III-IV which appeared to be infected we will consult wound care and infectious disease. Patient was on hemodialysis during last hospitalization her creatinine presently is 1.5 which is significantly improved patient potassium is 5.5, patient is on Entresto and Aldactone Aldactone will be held Entresto will be continued since she is receiving IV Lasix and expecting her potassium to improve if it does not improve or get worse then Entresto need to be discontinued as well. Patient has hypervolemic hyponatremia and hyperglycemia. 08/21/2023 Was evaluated today on the medical floor. Patient was continued on IV Lasix overnight however she was no longer reporting any shortness of breath and her lower extremity edema has improved. She was taken off of the Lasix at this time due to increased creatinine up to 2.31 additionally potassium remains elevated at 5.7. Echocardiogram comes back showing an improved ejection fraction of 60 to 65% because of this and also the hyperkalemia patient will not be continued on entresto. Patient was evaluated by infectious disease who felt like that heel ulcer on the right side was more likely a pressure injury stage III and is recommending local wound care to continue with Aquacel. Patient is reporting significant pain to the right foot and feels like it is fractured. Upon review of the patient's chart she did have a x-ray completed of this 12 days ago ordered by her lead software developer Dr. Mayen. Ankle x-ray did review a mildly displaced acute distal fibular fracture. Repeat x-ray of the foot and ankle completed today does reveal a subacute fractures of the medial and lateral malleolus. The lateral malleolus fracture was seen on the patient's prior exam the medial malleolus fracture may be new in the interval and this would be considered an unstable ankle fracture. There is interval 6 mm displacement of the lateral malleolus. There is a deep soft tissue ulcer at the plantar heel with no clear radiographic findings of a contagious osteomyelitis at this time. Orthooedics was consulted for this. 08/22/2023 Patient evaluated in follow-up today resting in bed. She was taken off of the Lasix remains off at this time. Bladder scan was requested and not done yesterday to rule out urinary retention, creatinine today is increased up to 2.56. Bladder scan was done require urinary straight catheterization of 550 mL taken out. Urinalysis was sent which is significantly abnormal. Patient is also noted to have multiple genital lesions which appear wartlike she admits to not having any routine gynecological screenings for many years. She is not having any vaginal bleeding or discharge. Renal ultrasound has been ordered to rule out any obstructive uropathy. Review of Systems Constitutional: Denied any fatigue denied any fever. Cardio vascular: denied any chest pain, palpitations Gastrointestinal: reports nausea vomiting. No diarrhea. Pulmonary: Denied any shortness of breath cough Neurologic denied any new focal deficits All inpatient medications were reviewed and appropriate changes in these medications as dictated in the interval history and assessment and plan. PHYSICAL EXAMINATION: GENERAL: The patient is alert and oriented x3, not in any acute distress. Well developed, well nourished. HEENT: Pupils are round and equally reacting to light. EOMI. No scleral icterus. No conjunctival pallor. Normocephalic, atraumatic. No pharyngeal erythema. No thyromegaly. CARDIOVASCULAR: S1 and S2 present. No murmurs, rubs, or gallops. PULMONARY: Chest is clear to auscultation, no wheezing or crackles. ABDOMEN: Soft, nontender, nondistended, normoactive bowel sounds. No palpable organomegaly. MUSCULOSKELETAL: No joint swelling or deformity. EXTREMITIES: No cyanosis, clubbing, bilateral pedal edema NEUROLOGICAL: Gross neurological examination did not reveal any focal deficits. SKIN: Patient has right plantar surface ulcer on the posterior foot stage III-IV with areas of tissue Assessment and plan -Congestive heart failure chronic systolic dysfunction with acute exacerbation: Treated with IV lasix and remains on farxiga. Patient had improved EF of 60-65% and was not started on entresto at this time. Lasix is being held. -Ischemic cardiomyopathy with improved EF. -Chronic kidney disease stage III patient was on hemodialysis due to cardiorenal syndrome and had improved kidney function is no longer a hemodialysis patient. Creatinine up to 2.56 today. Nephrology will be consulted. Due to the worsening creatinine, gabapentin dose has been decreased. Recommend to avoid nephrotoxic agents. Patient is noted to have urinary retention -Acute kidney injury likely from urinary retention rule out obstructive uropathy. -Urinary retention, abdominal/renal ultrasound ordered. -Hyperkalemia treated with lokelma and repeat labs in the AM. -Nausea possibly from the elevated creatinine and hyperkalemia continue with antiemetics. -Subacute fracture of the medial and lateral malleolus, orthopedics was consulted. -Right heel stage III pressure injury continue local wound care with aquacel ID following. -Genital lesions, consult OBGYN -Hypertension -Hyperlipidemia -Type 2 diabetes mellitus uncontrolled hgb a1c 12.1, continue with accuchecks ACHS, sliding scale insulin, and levemir -Severe pulmonary hypertension -COPD without any acute exacerbation -Peripheral neuropathy DVT prophylaxis: Subcutaneous heparin The impression and plan of care has been dictated by Susana Roman, Nurse Practitioner as directed. Dr. Ricardo MD I have performed a history and physical examination and medical decision making of this patient, discussed the same with the dictator, and agree with the dictators assessment and plan as written, documented as a scribe. Based on total visit time, I have performed more than 50% of this visit. Objective - Vital Signs Vital signs: Vital Signs Temp 97.5 F L 08/22/23 07:29 Pulse 66 08/22/23 07:29 Resp 17 08/22/23 07:29 BP 116/72 08/22/23 07:29 Pulse Ox 98 08/22/23 07:29 FiO2 Intake & Output 08/21/23 08/22/23 08/22/23 18:59 06:59 18:59 Output Total 550 Balance -550 Weight 75 kg 75 kg 69.9 kg Output: Urine 550 Straight 550 Other: Voiding Method Diaper Toilet Incontinent Diaper Incontinent # Voids 1 - Labs CBC & Chem 7: 08/19/23 12:42 08/22/23 07:37 Labs: Abnormal Lab Results - Last 24 Hours (Table) 08/21/23 08/21/23 08/21/23 Range/Units 08:55 17:09 20:08 Chloride (98-107) mmol/L BUN (7-17) mg/dL Creatinine (0.52-1.04) mg/dL POC Glucose (mg/dL) 279 H 249 H (70-110) mg/dL Hemoglobin A1c 12.1 H (<=6.0) % Calcium (8.4-10.2) mg/dL Urine Appearance (Clear) Urine Protein (Negative) Urine Glucose (UA) (Negative) Urine Bilirubin (Negative) Ur Leukocyte Esterase (Negative) Urine WBC (0-5) /hpf Urine WBC Clumps (None) /hpf Urine Bacteria (None) /hpf Hyaline Casts (0-2) /lpf Urine Yeast (Budding) (None) /hpf 08/22/23 08/22/23 08/22/23 Range/Units 06:04 07:37 10:30 Chloride 109 H (98-107) mmol/L BUN 59 H (7-17) mg/dL Creatinine 2.56 H (0.52-1.04) mg/dL POC Glucose (mg/dL) 111 H (70-110) mg/dL Hemoglobin A1c (<=6.0) % Calcium 7.7 L (8.4-10.2) mg/dL Urine Appearance Cloudy H (Clear) Urine Protein 2+ H (Negative) Urine Glucose (UA) 3+ H (Negative) Urine Bilirubin 1+ H (Negative) Ur Leukocyte Esterase Large H (Negative) Urine WBC 35 H (0-5) /hpf Urine WBC Clumps Few H (None) /hpf Urine Bacteria Many H (None) /hpf Hyaline Casts 3 H (0-2) /lpf Urine Yeast (Budding) Many H (None) /hpf Assessment and Plan Time with Patient: Less than 30
--- NOTE | 2023-08-22 14:57 | P.CNOR ---
History of Present Illness - [facility] Consult date: 08/22/23 Requesting physician: Susana Roman Consult reason: other (subacute right ankle fracture) History of present illness: Patient is a 57-year-old female who presented to the emergency department at [facility] 08/19/2023 with a chief complaint of difficulty breathing. Patient does have a past medical history significant for CAD, cardiomyopathy, hypertension, hyperlipidemia, diabetes, COPD, CKD. Shortness of breath patient states has gotten worse over the past one week and noticed increased swelling to the right lower extremity. Patient says she does have chronic wound over the right heel that she does see Dr. Mayen for every so often. Patient says she has also been to the wound care clinic for this. Orthopedics was consulted due to subacute right ankle fracture. Patient states she has had ongoing right ankle/foot pain for the past several months. Patient believes initially she injured her right ankle/foot when she fell back in the fall of 2022. Patient says she has been following in the outpatient setting with Dr. Mayen for the ankle fracture and has been treated nonoperatively. Patient states she has not had a splint or any sort of boot to the right lower extremity. Patient believes about a week or so ago she fell at home and since then she has been having some increasing pain in the right ankle. Patient says normally she ambulates independently but sometimes uses a walker or cane at home. Patient says it has been difficult to bear weight to the right lower extremity due to the swelling and pain in the foot and ankle. Patient denies any chest pain, fever, nausea, vomiting, change in vision, loss of bowel/bladder control. Past Medical History Past Medical History: Diabetes Mellitus, Hyperlipidemia, Hypertension, Renal Disease Additional Past Medical History / Comment(s): restless leg, neurothopy, Guillain-[place], dialysis History of Any Multi-Drug Resistant Organisms: None Reported Past Surgical History: Orthopedic Surgery, Tonsillectomy Additional Past Surgical History / Comment(s): "plate in left leg to straighten leg as a child" - plate removed, right total hip replacement due to a fracture from a fall, dialysis Past Anesthesia/Blood Transfusion Reactions: No Reported Reaction Past Psychological History: No Psychological Hx Reported Smoking Status: Former smoker Past Alcohol Use History: None Reported Past Drug Use History: None Reported Medications and Allergies Home Medications Medication Instructions Recorded Confirmed Type Dapagliflozin Propanediol [Farxiga] 5 mg PO DAILY 04/17/23 08/19/23 History Ezetimibe [Zetia] 10 mg PO DAILY 04/17/23 08/19/23 History Multivitamins, Thera [Multivitamin 1 tab PO DAILY 04/17/23 08/19/23 History (formulary)] rOPINIRole HCL [Requip] 1 mg PO HS 04/17/23 08/19/23 History Acetaminophen Tab [Tylenol] 500 mg PO Q6HR PRN tab 05/24/23 08/19/23 Rx Torsemide [Demadex] 40 mg PO DAILY 90 Days #90 tab 05/24/23 08/19/23 Rx Aspirin 81 mg PO DAILY 90 Days #90 tab 06/25/23 08/19/23 Rx Atorvastatin [Lipitor] 40 mg PO DAILY 90 Days #90 06/25/23 08/19/23 Rx Clopidogrel [Plavix] 75 mg PO DAILY 90 Days #90 tab 06/25/23 08/19/23 Rx Budesonide [Pulmicort] 0.5 mg INHALATION RT-BID PRN 08/19/23 08/19/23 History Diclofenac Sodium [Voltaren] 75 mg PO BID 08/19/23 08/19/23 History Gabapentin 600 mg PO QID 08/19/23 08/19/23 History INSULIN ASPART (NovoLOG) [NovoLOG 10 unit SQ AC-TID 08/19/23 08/19/23 History (formulary)] Isosorbide Mononitrate ER [Imdur] 15 mg PO DAILY 08/19/23 08/19/23 History Spironolactone [Aldactone] 25 mg PO DAILY 08/19/23 08/19/23 History hydrALAZINE HCL [Apresoline] 25 mg PO TID 08/19/23 08/19/23 History lisinopriL [Zestril] 10 mg PO DAILY 08/19/23 08/19/23 History Allergies Allergy/AdvReac Type Severity Reaction Status Date / Time No Known Allergies Allergy Verified 08/19/23 13:55 Physical Examination Dressing is present over the right foot/ankle and was taken down. There isn't evident 5 x 5 cm ulcer along the plantar aspect of the right heel. Appears to be about 1-1/2 cm deep. Negative for any active drainage. There does appear to be some granulation tissue forming inside the wound. Packing was taken out. There does appear to be some moderate swelling to the right ankle at the medial and lateral malleolus. Negative for any significant ecchymosis. Negative for any open fractures. Negative for any erythema. Sensation is somewhat altered to the right lower extremity. Patient does have a history of diabetes and neuropathy. Patient does have some limited range of motion in the right ankle and dorsiflexion/plantarflexion secondary to injury and swelling. Patient is able to wiggle digits and right foot. Patient does have good range of motion in the bilateral knees in flexion as extension. 3+/5 in resisted right ankle dorsiflexion/plantarflexion. 4/5 in all other major motor groups in bilateral lower extremities. Radial pulses intact bilaterally. Cap refill under 3 seconds into his upper extremities. DP pulses palpable on the right foot Results - Labs Labs: Abnormal Lab Results - Last 24 Hours (Table) 08/21/23 08/21/23 08/21/23 Range/Units 08:55 08:55 11:32 Sodium 136 L (137-145) mmol/L Potassium 5.7 H (3.5-5.1) mmol/L Chloride (98-107) mmol/L Carbon Dioxide 19 L (22-30) mmol/L BUN 50 H (7-17) mg/dL Creatinine 2.31 H (0.52-1.04) mg/dL Glucose 245 H (74-99) mg/dL POC Glucose (mg/dL) 279 H (70-110) mg/dL Hemoglobin A1c 12.1 H (<=6.0) % Calcium 7.8 L (8.4-10.2) mg/dL 08/21/23 08/21/23 08/22/23 Range/Units 17:09 20:08 06:04 Sodium (137-145) mmol/L Potassium (3.5-5.1) mmol/L Chloride (98-107) mmol/L Carbon Dioxide (22-30) mmol/L BUN (7-17) mg/dL Creatinine (0.52-1.04) mg/dL Glucose (74-99) mg/dL POC Glucose (mg/dL) 279 H 249 H 111 H (70-110) mg/dL Hemoglobin A1c (<=6.0) % Calcium (8.4-10.2) mg/dL 08/22/23 Range/Units 07:37 Sodium (137-145) mmol/L Potassium (3.5-5.1) mmol/L Chloride 109 H (98-107) mmol/L Carbon Dioxide (22-30) mmol/L BUN 59 H (7-17) mg/dL Creatinine 2.56 H (0.52-1.04) mg/dL Glucose (74-99) mg/dL POC Glucose (mg/dL) (70-110) mg/dL Hemoglobin A1c (<=6.0) % Calcium 7.7 L (8.4-10.2) mg/dL H & H 08/19/23 Range/Units 12:42 Hgb 10.5 L (11.4-16.0) gm/dL Hct 33.8 L (34.0-46.0) % Coagulation 08/19/23 Range/Units 12:42 INR 0.9 (<1.2) Result Diagrams: 08/19/23 12:42 08/22/23 07:37 - Diagnostic results Ankle/Foot x-ray: report reviewed, image reviewed (Subacute medial and lateral malleolus fracture of right lower extremity) Assessment and Plan Assessment: 1. Fracture, subacute, right ankle medial and lateral malleoli 2. Ulcer, right heel 3. Multiple medical comorbidities Plan: 1. Fracture, subacute, right ankle medial and lateral malleoli; Ulcer, right heel - Kerlix bandage was taken down off the right ankle/foot. Aquacell dressing was intact from ulcer in the right heel. Ulcer was cleaned with 10 mL syringe of sterile saline. Aquacell packing was placed into the ulcer and dressings were placed over the surface of the skin and new Kerlix dressing was placed over this. Wound care was consulted to due to this right heel ulcer. I did discuss the findings the imaging and exam with my attending, Dr. Kent. At this time we are recommending patient be nonweightbearing to the right lower extremity. we will order dedicated xray films of right ankle. We are not recommending any emergent/urgent orthopedic surgical intervention at this time. We will place a prescription for order of a Cam Walker boot for the right lower extremity. wound care has placed wound vac over right heel wound. We cannot place short leg splint at this time due to wound vac. Patient to remain nonweightbearing to the right lower extremity. We will await xray film results of right ankle. we will continue to follow patient during stay in hospital. 2. Appreciate medical, cardiology, wound care management 3. Pain management - gabapentin; [place]; Tylenol 4. DVT prophylaxis - aspirin; Plavix; heparin 5. GI prophylaxis recs 6. PT/OT - nonweightbearing right lower extremity. Weight-bear as tolerated left lower extremity with walker and assistance as needed 7. Encourage incentive spirometer use 8. Appreciate consult Time with Patient: Less than 30
[2023-08-22 16:50] LABS: Glucose,Whole Blood 89 mg/dL (70-110)
--- NOTE | 2023-08-22 17:02 | P.PN ---
Subjective Progress Note Date: 08/21/23 Principal diagnosis: Reason for follow-up is right heel diabetic foot ulcer Patient is a 57-year-old female with a past medical history significant for diabetes mellitus hypertension hyperlipidemia history of renal insufficiency requiring dialysis currently not on dialysis and the patient also have a chronic nonhealing wound to the right heel area, present to the hospital with increasing shortness of breath and swelling concerning for fluid overload. On today's evaluation that is 08/21/2023,the patient denies any fever or any chills, patient is breathing comfortably slightly comfortably on 2 L nasal cannula oxygen the patient denies chest pain or cough no nausea vomiting no abdominal pain and no pain to the right heel wound area. Patient did have a creatinine of 2.31 no CBC was done today Objective - Vital Signs Vital signs: Vital Signs Temp 97.8 F 08/20/23 20:00 Pulse 59 L 08/21/23 08:00 Resp 17 08/21/23 08:00 BP 93/60 08/21/23 07:30 Pulse Ox 95 08/21/23 07:30 FiO2 Intake & Output 08/20/23 08/21/23 08/21/23 18:59 06:59 18:59 Intake Total 240 Output Total 750 Balance -750 240 Weight 75 kg 75 kg Intake: Oral 240 Output: Urine 750 Other: Voiding Method Bedside Commode Diaper Diaper Incontinent Incontinent # Voids 1 # Bowel Movements 1 - Exam GENERAL DESCRIPTION: Middle-aged female lying in bed in no distress RESPIRATORY SYSTEM: Unlabored breathing , decreased breath sounds at bases HEART: S1 S2 regular rate and rhythm , ABDOMEN: Soft , no tenderness EXTREMITIES: Right heel wound is currently dressed - Labs CBC & Chem 7: 08/19/23 12:42 08/22/23 07:37 Labs: Abnormal Lab Results - Last 24 Hours (Table) 08/20/23 08/20/23 08/20/23 Range/Units 12:44 17:02 20:18 Sodium (137-145) mmol/L Potassium (3.5-5.1) mmol/L Carbon Dioxide (22-30) mmol/L BUN (7-17) mg/dL Creatinine (0.52-1.04) mg/dL Glucose (74-99) mg/dL POC Glucose (mg/dL) 179 H 131 H 131 H (70-110) mg/dL Calcium (8.4-10.2) mg/dL 08/21/23 08/21/23 08/21/23 Range/Units 05:50 08:55 11:32 Sodium 136 L (137-145) mmol/L Potassium 5.7 H (3.5-5.1) mmol/L Carbon Dioxide 19 L (22-30) mmol/L BUN 50 H (7-17) mg/dL Creatinine 2.31 H (0.52-1.04) mg/dL Glucose 245 H (74-99) mg/dL POC Glucose (mg/dL) 257 H 279 H (70-110) mg/dL Calcium 7.8 L (8.4-10.2) mg/dL Assessment and Plan (1) Pressure ulcer of right heel, stage 3 Current Visit: No Status: Acute Code(s): L89.613 - PRESSURE ULCER OF RIGHT HEEL, STAGE 3 SNOMED Code(s): 91315992646996 (2) Type 2 diabetes mellitus with foot ulcer Current Visit: No Status: Acute Code(s): E11.621 - TYPE 2 DIABETES MELLITUS WITH FOOT ULCER; L97.509 - NON-PRESSURE CHRONIC ULCER OTH PRT UNSP FOOT W UNSP SEVERITY SNOMED Code(s): 832133775 Plan: 1patient with chronic nonhealing wound to the right heel area which has been there for a couple of months now patient overall wound base looks clean with no slough tissue in the wound is not pulling out the wound more likely a pressure ulcer stage III with evidence of any secondary cellulitis 2-local wound care with Aquacel silver packing of the wound and keep the area of the pressure and will monitor the patient closely off antibiotic therapy Dictation was produced using [employer] dictation software. please excuse any grammatical, word or spelling errors. Time with Patient: Less than 30
--- NOTE | 2023-08-22 17:03 | P.PN ---
Subjective Progress Note Date: 08/22/23 Principal diagnosis: Reason for follow-up is right heel diabetic foot ulcer Patient is a 57-year-old female with a past medical history significant for diabetes mellitus hypertension hyperlipidemia history of renal insufficiency requiring dialysis currently not on dialysis and the patient also have a chronic nonhealing wound to the right heel area, present to the hospital with increasing shortness of breath and swelling concerning for fluid overload. On today's evaluation that is 08/22/2023,the patient remains to be afebrile, patient is on 2 L nasal cannula supplemental oxygen and breathing slightly comfortably no chest pain or cough.Patient denies having any nausea or vomiting, no abdominal pain and no diarrhea has been reported, denies pain to the right he el wound some pain to the foot area though. Patient noticed to have urinary retention [place] catheter has been placed Patient did have a creatinine 2.56, no CBC was done today patient did have a positive UA after placement of the catheter by the nursing staff Objective - Vital Signs Vital signs: Vital Signs Temp 97.5 F L 08/22/23 07:29 Pulse 66 08/22/23 07:29 Resp 17 08/22/23 07:29 BP 116/72 08/22/23 07:29 Pulse Ox 98 08/22/23 07:29 FiO2 Intake & Output 08/21/23 08/22/23 08/22/23 18:59 06:59 18:59 Output Total 550 Balance -550 Weight 75 kg 75 kg 69.9 kg Output: Urine 550 Straight 550 Other: Voiding Method Diaper Toilet Incontinent Diaper Incontinent # Voids 1 - Exam GENERAL DESCRIPTION: Middle-aged female lying in bed in no distress RESPIRATORY SYSTEM: Unlabored breathing , decreased breath sounds at bases HEART: S1 S2 regular rate and rhythm , ABDOMEN: Soft , no tenderness EXTREMITIES: Right heel wound is currently dressed - Labs CBC & Chem 7: 08/19/23 12:42 08/22/23 07:37 Labs: Abnormal Lab Results - Last 24 Hours (Table) 08/21/23 08/21/23 08/22/23 Range/Units 17:09 20:08 06:04 Chloride (98-107) mmol/L BUN (7-17) mg/dL Creatinine (0.52-1.04) mg/dL POC Glucose (mg/dL) 279 H 249 H 111 H (70-110) mg/dL Calcium (8.4-10.2) mg/dL Urine Appearance (Clear) Urine Protein (Negative) Urine Glucose (UA) (Negative) Urine Bilirubin (Negative) Ur Leukocyte Esterase (Negative) Urine WBC (0-5) /hpf Urine WBC Clumps (None) /hpf Urine Bacteria (None) /hpf Hyaline Casts (0-2) /lpf Urine Yeast (Budding) (None) /hpf 08/22/23 08/22/23 Range/Units 07:37 10:30 Chloride 109 H (98-107) mmol/L BUN 59 H (7-17) mg/dL Creatinine 2.56 H (0.52-1.04) mg/dL POC Glucose (mg/dL) (70-110) mg/dL Calcium 7.7 L (8.4-10.2) mg/dL Urine Appearance Cloudy H (Clear) Urine Protein 2+ H (Negative) Urine Glucose (UA) 3+ H (Negative) Urine Bilirubin 1+ H (Negative) Ur Leukocyte Esterase Large H (Negative) Urine WBC 35 H (0-5) /hpf Urine WBC Clumps Few H (None) /hpf Urine Bacteria Many H (None) /hpf Hyaline Casts 3 H (0-2) /lpf Urine Yeast (Budding) Many H (None) /hpf Assessment and Plan (1) Pressure ulcer of right heel, stage 3 Current Visit: No Status: Acute Code(s): L89.613 - PRESSURE ULCER OF RIGHT HEEL, STAGE 3 SNOMED Code(s): 46874394669173 (2) Type 2 diabetes mellitus with foot ulcer Current Visit: No Status: Acute Code(s): E11.621 - TYPE 2 DIABETES MELLITUS WITH FOOT ULCER; L97.509 - NON-PRESSURE CHRONIC ULCER OTH PRT UNSP FOOT W UNSP SEVERITY SNOMED Code(s): 045144624 (3) UTI (urinary tract infection) Current Visit: Yes Status: Acute Code(s): N39.0 - URINARY TRACT INFECTION, SITE NOT SPECIFIED SNOMED Code(s): 82997213 Plan: 1patient with chronic nonhealing wound to the right heel area which has been there for a couple of months now patient overall wound base looks clean with no slough tissue in the wound is not pulling out the wound more likely a pressure ulcer stage III with evidence of any secondary cellulitis 2-local wound care has been switched over to the wound VAC to continue 3-patient did have urine tension requiring Hays catheter placement did have significantly positive UA putting her at risk of catheter assisted UTI urine showed mostly yeast we will add Diflucan Dictation was produced using [employer] software. please excuse any grammatical, word or spelling errors. Time with Patient: Less than 30
--- NOTE | 2023-08-22 17:23 | XR ---
Right ankle. HISTORY: Pain. COMPARISON: 08/09/2023. TECHNIQUE: 3 views right ankle were obtained. FINDINGS: Displaced fractures involving the lateral and medial malleoli as well as the tibial plafond. There is disruption of the ankle mortise. The osseous structures are diffusely osteopenic. IMPRESSION: Multiple intra-articular right ankle fractures as described above.
[2023-08-22] MEDS: FLUCONAZOLE 100 MG TAB PO SCH (17:40)
[2023-08-22 20:28] LABS: Glucose,Whole Blood 131 mg/dL (70-110)
[2023-08-23] MEDS ORDERED: EPINEPHrine 10 ML SYRINGE (0.1 MG/ML) ONE (04:47)
[2023-08-23 04:52] LABS: Glucose,Whole Blood 164 mg/dL (70-110)
[2023-08-23 05:17] LABS: Glucose,Whole Blood 75 mg/dL (70-110)
[2023-08-23 05:53] LABS: ABG Base Excess -10.8 mmol/L; ABG HCO3 16 mmol/L (21-25); ABG Oxygen Saturation 99.9 % (94-97); ABG PCO2 38 mmHg (35-45); ABG PH 7.25 (7.35-7.45); ABG PO2 268 mmHg (83-108); ABG TCO2 18 mmol/L (19-24); Allen Test Performed? Yes
[2023-08-23] MEDS: NOREPINEPHRINE 4 MG in SODIUM CHLORIDE 0.9% 250 ML IV SCH (06:00)
[2023-08-23] MEDS: SODIUM CHLORIDE 0.9% 1,000 ML IV ONE (06:00)
[2023-08-23] MEDS: CISATRACURIUM 2 MG/ML 5 ML VIAL IV ONE ×2 (06:45→06:47)
--- NOTE | 2023-08-23 07:05 | P.EN ---
code blue event patient sustained a cardiac arrest , initial rhythm was asystole, CPR initiated following ACLS protocol, epi and bicarb was given ROSC was achieved after 6 to 8 minutes. Patient was intubated during the code was transferred to the ICU. Attempted to contact family no one answers to voice messages were left by nursing staff to 2 family members listed as emergency contact Patient sustained another event of cardiac arrest this time she bradycardia down while on pressors in the ICU on ventilator. CPR was initiated following ACLS protocol 2 rounds of CPR was delivered epi was given bicarb was given and ROSC was achieved. Consider CTA of the chest to rule out PE
--- NOTE | 2023-08-23 07:13 | XR ---
EXAMINATION TYPE: XR chest 1V portable DATE OF EXAM: 08/23/2023 COMPARISON: 05/16/2023 HISTORY: SOB, Follow Up FINDINGS: Endotracheal tube is at the origin of the right mainstem bronchus and should be pulled back 3.5 cm. N G tube is seen coursing into the stomach. Large bore right IJ central venous line in place. Increased right upper lobe airspace infiltrate as well as left perihilar infiltrate. There is evidence of cardiomegaly. Small left pleural effusion. IMPRESSION: 1. Endotracheal tube should be pulled back as noted above. 2. Perihilar and right upper lobe infiltrates may reflect pneumonia. Small left effusion. CHF or vasc ular overload should also be considered.
--- NOTE | 2023-08-23 07:28 | PCN ---
PROCEDURE NOTE PROCEDURE PERFORMED: Right femoral art line. PREOPERATIVE DIAGNOSES: Frequent blood draws, blood gas monitoring, hypotension. POSTOPERATIVE DIAGNOSES: Frequent blood draws, blood gas monitoring, hypotension. [employer] MACHINE OPERATOR: Dr. Langford. The patient's procedure took place in room 255. A time-out was completed verifying correct patient, procedure, site, positioning, and implant(s) or special equipment if applicable. DESCRIPTION OF PROCEDURE: Tone's test was performed to ensure adequate perfusion. The patient's right groin was prepped and draped in sterile fashion. 1% Lidocaine was used to anesthetize the area. An 18G Arrow arterial line was introduced into the femoral artery. The catheter was threaded over the guide wire and the needle was removed with appropriate pulsatile blood return. Blood loss was minimal. The catheter was then sutured in place to the skin and a sterile dressing applied. Perfusion to the extremity distal to the point of catheter insertion was checked and found to be adequate. The patient tolerated the procedure well and there were no complications. There was no immediate complication. There was good blood return and waveform. The catheter was sutured in place. A sterile dressing was applied by the nurse. There was no immediate complication. MMODL / IJN: [id number] /
--- NOTE | 2023-08-23 07:28 | PCN ---
PROCEDURE NOTE PROCEDURE PERFORMED: A left internal jugular triple-lumen catheter. PREOPERATIVE DIAGNOSES: Administration of fluids and pressors, hypotension. POSTOPERATIVE DIAGNOSES: Administration of fluids and pressors, hypotension. TERMITE CONTROL TECHNICIAN: Dr. Langford. The patient's procedure took place in room #255. DESCRIPTION OF PROCEDURE: We used the left internal jugular vein, we went via posterior approach. There was no immediate complication. Good blood return from all 3 ports. The patient tolerated procedure well. The catheter was sutured in place. Sterile dressing applied by the nurse. The tip of catheter was seen in the junction of right atrium superior vena cava. There was no immediate complication. There was informed consent and universal timeout. MMODL / IJN: [id number] /
[2023-08-23 07:58] LABS: Appearance,Urine Turbid (Clear); Bacteria,Urine Many /hpf; Bilirubin,Urine 1+ (Negative); Blood,Urine Moderate (Negative); Budding Yeast,Urine Many /hpf; Color,Urine Yellow; Glucose,Urine (UA) 1+ (Negative); Ketones,Urine Negative (Negative); Leukocyte Esterase,Urine Large (Negative); Mucus,Urine Occasional /hpf; Nitrite,Urine Negative (Negative); PH, Urine 5.5 (5.0-8.0); Protein,Urine 2+ (Negative); RBC,Urine 56 /hpf (0-5); Specific Gravity,Urine 1.016 (1.001-1.035); WBC,Urine >182 /hpf (0-5)
--- NOTE | 2023-08-23 08:12 | XR ---
EXAMINATION TYPE: XR chest 1V portable DATE OF EXAM: 08/23/2023 Comparison: 08/23/2023 Clinical History: 57-year-old female Central line placement Findings: ET tube tip located 1.1 cm from the sonam. Low back 1.5 cm and reassessed on follow-up. NG tube cour ses below the diaphragm. Right-sided double-lumen hemodialysis catheter tips at the cavoatrial juncti on. Heart mildly enlarged. Perihilar interstitial density and confluent right upper and midlung opaci ty persists. Possible trace left effusion. Impression: 1. The tip of the ET tube is now 1.1 cm from the sonam. Pull back 1.5 cm and reassess at follow-up. 2. Otherwise, similar interstitial and patchy/confluent airspace disease, right greater than left.
[2023-08-23 08:30] LABS: Glucose,Whole Blood 77 mg/dL (70-110)
[2023-08-23 08:53] LABS: Anisocytosis Slight; Basophils % (A) 0 %; Eosinophils # (A) 0.1 k/uL (0-0.7); Eosinophils % (A) 0 %; HGB 9.5 gm/dL (11.4-16.0); Hypochromasia Slight; Lymphocytes # (A) 0.6 k/uL (1.0-4.8); Lymphocytes % (A) 4 %; MCHC 30.6 g/dL (31.0-37.0); MCV 91.5 fL (80.0-100.0); Mean Platelet Volume 9.8; Monocytes # (A) 0.7 k/uL (0-1.0); Monocytes % (A) 5 %; Neutrophils # (A) 12.3 k/uL (1.3-7.7); Neutrophils % (A) 89 %; Platelet Count 257 k/uL (150-450); RBC 3.38 m/uL (3.80-5.40); RDW 16.8 % (11.5-15.5); WBC 13.8 k/uL (3.8-10.6)
[2023-08-23 09:04] LABS: ALT 286 U/L (4-34); AST 468 U/L (14-36); African American GFR (CKD) 21 (>60 ml/min/1.73 sqM); Albumin 2.1 g/dL (3.5-5.0); Alkaline Phosphatase 440 U/L (38-126); Anion Gap 5 mmol/L; Blood Urea Nitrogen 62 mg/dL (7-17); Calcium 6.9 mg/dL (8.4-10.2); Carbon Dioxide 19 mmol/L (22-30); Chloride 111 mmol/L (98-107); Glucose 86 mg/dL (74-99); INR 1.2 (<1.2); Magnesium 2.1 mg/dL (1.6-2.3); Non-African American GFR(CKD) 18 (>60 ml/min/1.73 sqM); Partial Thromboplastin Time 23.3 sec (22.0-30.0); Potassium 4.9 mmol/L (3.5-5.1); Prothrombin Time 12.9 sec (10.0-12.5); Sodium 135 mmol/L (137-145); Total Bilirubin 0.8 mg/dL (0.2-1.3); Total Protein 4.9 g/dL (6.3-8.2)
[2023-08-23] MEDS: IPRATROPIUM-ALBUTEROL 3 ML NEB INHALATION SCH (09:09)
[2023-08-23] MEDS: CHLORHEXIDINE GLUCONATE 15 ML CUP MUCOUS MEM SCH (09:45)
--- NOTE | 2023-08-23 10:14 | P.PN ---
Subjective Patient is seen in follow-up for acute kidney injury. At 4 AM this morning patient bradycardia down and went into asystole. CPR was initiated and she received 3 rounds of epinephrine. Patient was subsequently intubated and transferred to the ICU. Patient had another PEA arrest at 6:30 in the morning and received 2 more rounds of epinephrine. She is currently on Levophed. She also received 2 L of normal saline bolus. She is receiving normal saline at 50 cc an hour for maintenance fluids. She is making urine. Vital signs are stable. On Levophed. General: Resting in bed. HEENT: Intubated. LUNGS: No audible rhonchi or wheezes. HEART: Rate and Rhythm are regular. ABDOMEN: No distention. EXTREMITITES: Trace edema. Objective - Vital Signs Vital signs: Vital Signs Temp 97.7 F 08/23/23 01:34 Pulse 58 L 08/23/23 10:00 Resp 0 L 08/23/23 10:00 BP 155/88 08/23/23 10:00 Pulse Ox 96 08/23/23 10:00 FiO2 50 08/23/23 08:27 Intake & Output 08/22/23 08/23/23 08/23/23 18:59 06:59 18:59 Intake Total 1.398 50.657 Output Total 550 100 Balance -550 -98.602 50.657 Weight 69.9 kg Intake: Intake, IV Titration 1.398 50.657 Amount Norepinephrine 4 mg In 34.090 Sodium Chloride 0.9% 250 ml @ 0.03 MCG/KG/MIN 7.99 mls/hr IV .Q24H RYLIE Rx#: [id number] propofoL 1,000 mg In 1.398 16.567 Empty Bag 1 bag @ 15 MCG/ KG/MIN 6.291 mls/hr IV . [id number] RYLEI Rx#:[id number] Output: Urine 550 100 Straight 550 Other: Voiding Method Bedside Commode ABP, PAP, CO, CI - Last Documented Arterial Blood Pressure 126/61 - Labs CBC & Chem 7: 08/23/23 08:36 08/23/23 08:36 Labs: Abnormal Lab Results - Last 24 Hours (Table) 08/22/23 08/22/23 08/23/23 Range/Units 10:30 20:27 04:50 WBC (3.8-10.6) k/uL RBC (3.80-5.40) m/uL Hgb (11.4-16.0) gm/dL Hct (34.0-46.0) % MCHC (31.0-37.0) g/dL RDW (11.5-15.5) % Neutrophils # (1.3-7.7) k/uL Lymphocytes # (1.0-4.8) k/uL PT (10.0-12.5) sec INR (<1.2) ABG pH (7.35-7.45) ABG pO2 (83-108) mmHg ABG HCO3 (21-25) mmol/L ABG Total CO2 (19-24) mmol/L ABG O2 Saturation (94-97) % Sodium (137-145) mmol/L Chloride (98-107) mmol/L Carbon Dioxide (22-30) mmol/L BUN (7-17) mg/dL Creatinine (0.52-1.04) mg/dL POC Glucose (mg/dL) 131 H 164 H (70-110) mg/dL Calcium (8.4-10.2) mg/dL AST (14-36) U/L ALT (4-34) U/L Alkaline Phosphatase (38-126) U/L Total Protein (6.3-8.2) g/dL Albumin (3.5-5.0) g/dL Urine Appearance Cloudy H (Clear) Urine Protein 2+ H (Negative) Urine Glucose (UA) 3+ H (Negative) Urine Blood (Negative) Urine Bilirubin 1+ H (Negative) Ur Leukocyte Esterase Large H (Negative) Urine RBC (0-5) /hpf Urine WBC 35 H (0-5) /hpf Urine WBC Clumps Few H (None) /hpf Urine Bacteria Many H (None) /hpf Hyaline Casts 3 H (0-2) /lpf Urine Mucus (None) /hpf Urine Yeast (Budding) Many H (None) /hpf 08/23/23 08/23/23 08/23/23 Range/Units 05:51 06:15 08:36 WBC 13.8 H (3.8-10.6) k/uL RBC 3.38 L (3.80-5.40) m/uL Hgb 9.5 L (11.4-16.0) gm/dL Hct 31.0 L (34.0-46.0) % MCHC 30.6 L (31.0-37.0) g/dL RDW 16.8 H (11.5-15.5) % Neutrophils # 12.3 H (1.3-7.7) k/uL Lymphocytes # 0.6 L (1.0-4.8) k/uL PT (10.0-12.5) sec INR (<1.2) ABG pH 7.25 L (7.35-7.45) ABG pO2 268 H (83-108) mmHg ABG HCO3 16 L (21-25) mmol/L ABG Total CO2 18 L (19-24) mmol/L ABG O2 Saturation 99.9 H (94-97) % Sodium (137-145) mmol/L Chloride (98-107) mmol/L Carbon Dioxide (22-30) mmol/L BUN (7-17) mg/dL Creatinine (0.52-1.04) mg/dL POC Glucose (mg/dL) (70-110) mg/dL Calcium (8.4-10.2) mg/dL AST (14-36) U/L ALT (4-34) U/L Alkaline Phosphatase (38-126) U/L Total Protein (6.3-8.2) g/dL Albumin (3.5-5.0) g/dL Urine Appearance Turbid H (Clear) Urine Protein 2+ H (Negative) Urine Glucose (UA) 1+ H (Negative) Urine Blood Moderate H (Negative) Urine Bilirubin 1+ H (Negative) Ur Leukocyte Esterase Large H (Negative) Urine RBC 56 H (0-5) /hpf Urine WBC >182 H (0-5) /hpf Urine WBC Clumps Few H (None) /hpf Urine Bacteria Many H (None) /hpf Hyaline Casts (0-2) /lpf Urine Mucus Occasional H (None) /hpf Urine Yeast (Budding) Many H (None) /hpf 08/23/23 08/23/23 Range/Units 08:36 08:36 WBC (3.8-10.6) k/uL RBC (3.80-5.40) m/uL Hgb (11.4-16.0) gm/dL Hct (34.0-46.0) % MCHC (31.0-37.0) g/dL RDW (11.5-15.5) % Neutrophils # (1.3-7.7) k/uL Lymphocytes # (1.0-4.8) k/uL PT 12.9 H (10.0-12.5) sec INR 1.2 H (<1.2) ABG pH (7.35-7.45) ABG pO2 (83-108) mmHg ABG HCO3 (21-25) mmol/L ABG Total CO2 (19-24) mmol/L ABG O2 Saturation (94-97) % Sodium 135 L (137-145) mmol/L Chloride 111 H (98-107) mmol/L Carbon Dioxide 19 L (22-30) mmol/L BUN 62 H (7-17) mg/dL Creatinine 2.76 H (0.52-1.04) mg/dL POC Glucose (mg/dL) (70-110) mg/dL Calcium 6.9 L (8.4-10.2) mg/dL AST 468 H (14-36) U/L ALT 286 H (4-34) U/L Alkaline Phosphatase 440 H (38-126) U/L Total Protein 4.9 L (6.3-8.2) g/dL Albumin 2.1 L (3.5-5.0) g/dL Urine Appearance (Clear) Urine Protein (Negative) Urine Glucose (UA) (Negative) Urine Blood (Negative) Urine Bilirubin (Negative) Ur Leukocyte Esterase (Negative) Urine RBC (0-5) /hpf Urine WBC (0-5) /hpf Urine WBC Clumps (None) /hpf Urine Bacteria (None) /hpf Hyaline Casts (0-2) /lpf Urine Mucus (None) /hpf Urine Yeast (Budding) (None) /hpf Assessment and Plan Plan: Assessment: 1. Acute kidney injury secondary to ATN secondary to cardiorenal syndrome and cardiac arrest. Creatinine 1.5 admission and is up to 2.76 today. Patient was on hemodialysis in the past with last treatment being July 02, 2023. Dialysis catheter was scheduled to be removed but patient still has the permacath. 2. Volume overload. Improved with diuresis. 3. Acute on chronic diastolic CHF. 4. Diabetes mellitus. 5. Right foot wound. 6. Coronary disease with cardiac stenting. 7. Status post PEA arrest. Plan: Maintain gentle IV hydration. Follow-up abdominal ultrasound. Follow-up renal duplex ultrasound. Avoid nephrotoxins. Continue to monitor renal function and urine output. Maintain [place] catheter. Strict I's and O's. Permacath to be removed today. Catheter tip will be sent for culture. Check blood cultures. If renal function worsens this admission requiring renal replacement therapy, then new access will be placed. Wean FiO2 and vasopressors.
--- NOTE | 2023-08-23 10:33 | US ---
EXAMINATION TYPE: US renal artery duplex completa DATE OF EXAM: 08/22/2023 Exam done portable COMPARISON: NONE CLINICAL INDICATION: Female, 57 years old with history of acute kidney injury, htn, r/o renal artery stenosis; MEASUREMENTS: RENAL SIZE: Right Kidney: 10.8 x 4.4 x 4.4cm Left Kidney: 10.5 x 5.1 x 4.1cm Right Kidney: no hydronephrosis or lesions seen Left Kidney: no hydronephrosis or lesions seen Abd Aorta: visualized portions wnl, limited by overlying midline bowel gas Difficult and limited study due to patient sleeping/snoring during exam RESISTANCE INDEX Right: 0.78 Left: 0.76 RA/AO RATIO (< 3.5 ) Right: 1.1 Left: 1.9 RENAL ARTERY VELOCITY ( < 180 cm/s) Right: 97.4 Left: 174.6 IMPRESSION: No definite evidence of renal artery stenosis
--- NOTE | 2023-08-23 10:42 | US ---
EXAMINATION TYPE: US abdomen limited DATE OF EXAM: 08/22/2023 Exam done portable COMPARISON: NONE CLINICAL INDICATION: Female, 57 years old with history of nausea; and vomiting TECHNIQUE: Multiple sonographic images of the abdomen are obtained. FINDINGS: EXAM MEASUREMENTS: Liver Length: 17.0 cm Gallbladder Wall: 0.8 cm CBD: 0.5 cm Spleen: 13.5 cm Pancreas: visualized portions wnl, limited by overlying midline bowel gas Liver: wnl Gallbladder: cholelithiasis, wall thickening, pericholecystic fluid Evidence for sonographic Simental's sign: no CBD: 0.5 Spleen: mildly enlarged Right Kidney: imaged on same day renal artery ultrasound Left Kidney: imaged on same day renal artery ultrasound Upper IVC: wnl Abd Aorta: imaged on same day renal artery ultrasound The liver is homogenous. The intrahepatic portion of the IVC and proximal abdominal aorta are within normal limits. There is no evidence of cholelithiasis. Common bile duct is unremarkable. The visu alized portions of the pancreas are homogenous. The spleen is unremarkable. Kidneys are symmetric a nd free of hydronephrosis. No renal lesions are seen. IMPRESSION: Unremarkable exam.
--- NOTE | 2023-08-23 10:48 | CT ---
EXAMINATION TYPE: CT brain wo con CT DLP: 1152.4 mGycm, Automated exposure control for dose reduction was used. DATE OF EXAM: 08/23/2023 10:37 AM COMPARISON: None.. CLINICAL INDICATION:Female, 57 years old with history of Altered mental status, AMS. TECHNIQUE: Brain: Axial CT images of the brain were obtained with coronal and sagittal reformats created and rev iewed. Contrast used: None. Oral contrast used: None. FINDINGS: Brain: Extra-axial spaces: No abnormal extra-axial fluid collections. Ventricular system: Within normal limits Cerebral parenchyma: No acute intraparenchymal hemorrhage or mass effect. The senior-white junction is well differentiated. Cerebellum: Unremarkable. Mass effect: No evidence of midline shift. Intracranial vasculature: unremarkable Soft tissues: Normal. Calvarium/osseous structures: No depressed skull fracture. Paranasal sinuses and mastoid air cells: Mild scattered paranasal sinus disease. Visualized orbits: Orbital contents are intact. IMPRESSION: No acute intracranial process.
--- NOTE | 2023-08-23 11:31 | P.CNPUL ---
History of Present Illness Consult date: 08/23/23 Requesting physician: Juju Schneider Reason for consult: other Chief complaint: Cardiopulmonary arrest. History of present illness: Pulmonary consult dated August 23, 2023. This is a 57-year-old female who was admitted back on August 18, for a right heel wound. Early this morning, the patient had a cardiopulmonary arrest. The patient apparently was initially found to be bradycardic, and then had asystole. She received 3 rounds of epinephrine. She arrived to the intensive care unit this morning at 630, having been intubated on the floor by anesthesia. In the ICU, the patient had an episode of pulseless electrical activity, and asystole, and received 2 rounds of epinephrine, a dose of atropine, and some sodium bicarbonate. I came into the intensive care unit this morning, early, to place a left internal jugular triple-lumen catheter, and a right femoral arterial line. Currently, the patient is on volume assist-control, rate 16, tidal volume 400, FiO2 50%, PEEP of 5. The most recent blood gases show pO2 of 75, pCO2 49, pH is 7.44. Arterial blood gases shortly after intubation showed a pO2 of 268, pCO2 of 38, and a pH of 7.25. The patient is currently on norepinephrine at 1.4 mcg/min, and saline at 50 cc an hour. Current labs include a white count 13.8, hemoglobin 9.5, hematocrit 31, and a platelet count of 257,000. PT was 12.9 with an INR of 1.2. Sodium 135, potassium 4.9, chlorides 111, CO2 19, anion gap 5, BUN 62, creatinine 2.76. The patient's AST is 468. ALT is 286. Albumin is 2.1. Urine, is suspicious for possible infection. Brain CT Today, Shows No Acu te Intracranial Process. Chest x-ray shows bilateral patchy airspace disease, right greater than left. Review of Systems REVIEW OF SYSTEMS: Review of systems cannot be obtained, as the patient is currently sedated, intubated, and on the mechanical ventilator. The patient had a in-hospital, cardiopulmonary arrest, once on the floor, and once in the intensive care unit. CONSTITUTIONAL: [Negative.] NEUROLOGIC: [ Negative.] HEENT: [ Negative.] CARDIAC: [Negative.] PULMONARY: [Negative.] GI: [Negative.] : [Negative.] RHEUMATOLOGIC: [ Negative.] IMMUNOLOGIC: [ Negative.] ENDOCRINE: [Negative. ] DERMATOLOGIC: [Negative.] Past Medical History Past Medical History: Diabetes Mellitus, Hyperlipidemia, Hypertension, Renal Disease Additional Past Medical History / Comment(s): restless leg, neurothopy, Guillain-Elizabeth, dialysis History of Any Multi-Drug Resistant Organisms: None Reported Past Surgical History: Orthopedic Surgery, Tonsillectomy Additional Past Surgical History / Comment(s): "plate in left leg to straighten leg as a child" - plate removed, right total hip replacement due to a fracture from a fall, dialysis Past Anesthesia/Blood Transfusion Reactions: No Reported Reaction Past Psychological History: No Psychological Hx Reported Smoking Status: Former smoker Past Alcohol Use History: None Reported Past Drug Use History: None Reported Medications and Allergies Home Medications Medication Instructions Recorded Confirmed Type Dapagliflozin Propanediol [Farxiga] 5 mg PO DAILY 04/17/23 08/19/23 History Ezetimibe [Zetia] 10 mg PO DAILY 04/17/23 08/19/23 History Multivitamins, Thera [Multivitamin 1 tab PO DAILY 04/17/23 08/19/23 History (formulary)] rOPINIRole HCL [Requip] 1 mg PO HS 04/17/23 08/19/23 History Acetaminophen Tab [Tylenol] 500 mg PO Q6HR PRN tab 05/24/23 08/19/23 Rx Torsemide [Demadex] 40 mg PO DAILY 90 Days #90 tab 05/24/23 08/19/23 Rx Aspirin 81 mg PO DAILY 90 Days #90 tab 06/25/23 08/19/23 Rx Atorvastatin [Lipitor] 40 mg PO DAILY 90 Days #90 06/25/23 08/19/23 Rx Clopidogrel [Plavix] 75 mg PO DAILY 90 Days #90 tab 06/25/23 08/19/23 Rx Budesonide [Pulmicort] 0.5 mg INHALATION RT-BID PRN 08/19/23 08/19/23 History Diclofenac Sodium [Voltaren] 75 mg PO BID 08/19/23 08/19/23 History Gabapentin 600 mg PO QID 08/19/23 08/19/23 History INSULIN ASPART (NovoLOG) [NovoLOG 10 unit SQ AC-TID 08/19/23 08/19/23 History (formulary)] Isosorbide Mononitrate ER [Imdur] 15 mg PO DAILY 08/19/23 08/19/23 History Spironolactone [Aldactone] 25 mg PO DAILY 08/19/23 08/19/23 History hydrALAZINE HCL [Apresoline] 25 mg PO TID 08/19/23 08/19/23 History lisinopriL [Zestril] 10 mg PO DAILY 08/19/23 08/19/23 History Allergies Allergy/AdvReac Type Severity Reaction Status Date / Time No Known Allergies Allergy Verified 08/19/23 13:55 Physical Exam Osteopathic Statement: *. No significant issues noted on an osteopathic structural exam other than those noted in the History and Physical/Consult. Vitals: Vital Signs Temp Pulse Pulse Resp BP BP Pulse Ox 08/23/23 10:25 08/23/23 10:00 58 L 0 L 155/88 96 08/23/23 09:45 59 L 3 L 155/88 99 08/23/23 09:30 59 L 2 L 98 08/23/23 09:15 57 L 16 120/73 99 08/23/23 09:10 56 L 16 08/23/23 09:00 56 L 16 124/71 95 08/23/23 08:45 56 L 16 124/71 94 L 08/23/23 08:30 58 L 16 124/72 95 08/23/23 08:27 08/23/23 08:15 60 16 95 08/23/23 08:00 62 16 95 08/23/23 07:45 60 16 94 L 08/23/23 07:00 71 16 175/94 89 L 08/23/23 06:55 84 16 218/120 88 L 08/23/23 06:50 90 16 89 L 08/23/23 06:45 87 16 99 08/23/23 06:40 16 72/59 100 08/23/23 06:35 126 H 16 99 08/23/23 06:30 96 16 92 L 08/23/23 06:25 82 16 48/32 84 L 08/23/23 06:20 53 L 16 78/62 82 L 08/23/23 06:15 43 L 16 79/21 84 L 08/23/23 06:10 47 L 16 50/32 98 08/23/23 06:05 53 L 16 50/33 98 08/23/23 06:04 08/23/23 06:00 51 L 16 62/43 98 08/23/23 05:55 54 L 16 65/49 100 08/23/23 05:51 54 L 16 65/49 100 08/23/23 05:50 65/49 08/23/23 05:45 64/43 08/23/23 05:39 08/23/23 05:35 84/57 08/23/23 05:33 86/56 08/23/23 05:21 117/93 08/23/23 01:34 97.7 F 51 L 17 107/64 97 08/22/23 19:10 97.7 F 64 17 109/71 92 L 08/22/23 16:53 97.5 F L 64 17 125/79 95 FiO2 08/23/23 10:25 50 08/23/23 10:00 08/23/23 09:45 08/23/23 09:30 08/23/23 09:15 08/23/23 09:10 08/23/23 09:00 08/23/23 08:45 08/23/23 08:30 08/23/23 08:27 50 08/23/23 08:15 08/23/23 08:00 50 08/23/23 07:45 50 08/23/23 07:00 08/23/23 06:55 08/23/23 06:50 08/23/23 06:45 08/23/23 06:40 08/23/23 06:35 08/23/23 06:30 08/23/23 06:25 08/23/23 06:20 08/23/23 06:15 08/23/23 06:10 08/23/23 06:05 50 08/23/23 06:04 50 08/23/23 06:00 08/23/23 05:55 100 08/23/23 05:51 08/23/23 05:50 08/23/23 05:45 08/23/23 05:39 100 08/23/23 05:35 08/23/23 05:33 08/23/23 05:21 08/23/23 01:34 08/22/23 19:10 08/22/23 16:53 Intake and Output 08/22/23 08/23/23 08/23/23 22:59 06:59 14:59 Intake Total 1.398 250.657 Output Total 100 90 Balance -98.602 160.657 Intake: IV 200 Sodium Chloride 0.9% 1, 150 000 ml @ 50 mls/hr IV . Q20H RYLIE Rx#:[id number] cefTRIAXone 1 gm In 50 Sodium Chloride 0.9% 50 ml @ 100 mls/hr IVPB Q12HR RYLIE Rx#:[id number] Intake, IV Titration 1.398 50.657 Amount Norepinephrine 4 mg In 34.090 Sodium Chloride 0.9% 250 ml @ 0.03 MCG/KG/MIN 7.99 mls/hr IV .Q24H RYLIE Rx#: [id number] propofoL 1,000 mg In 1.398 16.567 Empty Bag 1 bag @ 15 MCG/ KG/MIN 6.291 mls/hr IV . [id number] RYLIE Rx#:[id number] Output: Urine 100 90 Other: Voiding Method Bedside Commode Weight 70.2 kg ABP, PAP, CO, CI - Last 8 Hours Arterial Blood Pressure 126/61 Arterial Blood Pressure 167/79 Arterial Blood Pressure 179/87 Arterial Blood Pressure 172/81 Arterial Blood Pressure 130/63 Arterial Blood Pressure 124/57 Arterial Blood Pressure 139/62 Arterial Blood Pressure 149/65 Arterial Blood Pressure 145/64 Arterial Blood Pressure 137/58 Arterial Blood Pressure 133/63 No acute distress, currently with an orally placed endotracheal tube, but without sedation. HEENT examination is grossly unremarkable. Neck supple. Full range of motion. No adenopathy thyromegaly or neck vein distention. Cardiovascular examination reveals regular rhythm rate. S1-S2 normal. No S3 or S4. No discernible murmur noted. Heart sounds are distant. Heart rate 58 bpm. Lungs reveal scattered bilateral rhonchi. No wheezes or crackles. Breath sounds equal bilaterally. Saturation is 96%. Abdomen soft without bowel sounds. Extremities are intact. No cyanosis clubbing or edema. Skin is without rash or lesion. Neurologic examination cannot be assessed at this time. Results - Laboratory Findings CBC and BMP: 08/23/23 08:36 08/23/23 08:36 ABG ABG pH 7.25 (7.35-7.45) L 08/23/23 05:51 ABG pCO2 38 mmHg (35-45) 08/23/23 05:51 ABG pO2 268 mmHg (83-108) H 08/23/23 05:51 ABG O2 Saturation 99.9 % (94-97) H 08/23/23 05:51 PT/INR, D-dimer PT 12.9 sec (10.0-12.5) H 08/23/23 08:36 INR 1.2 (<1.2) H 08/23/23 08:36 Abnormal lab findings: Abnormal Labs 08/19/23 08/19/23 08/19/23 12:42 12:42 12:42 WBC RBC 3.69 L Hgb 10.5 L Hct 33.8 L MCHC RDW 16.7 H Neutrophils # Lymphocytes # 0.6 L PT INR ABG pH ABG pO2 ABG HCO3 ABG Total CO2 ABG O2 Saturation Sodium 134 L Potassium 5.5 H Chloride 109 H Carbon Dioxide 20 L BUN 39 H Creatinine 1.51 H Glucose 423 H POC Glucose (mg/dL) Hemoglobin A1c Plasma Lactic Acid [place] 0.6 L Calcium 7.9 L AST ALT Alkaline Phosphatase 299 H Total Protein 5.6 L Albumin 2.7 L Urine Appearance Urine Protein Urine Glucose (UA) Urine Blood Urine Bilirubin Ur Leukocyte Esterase Urine RBC Urine WBC Urine WBC Clumps Urine Bacteria Hyaline Casts Urine Mucus Urine Yeast (Budding) 08/20/23 08/20/23 08/20/23 08:40 12:44 17:02 WBC RBC Hgb Hct MCHC RDW Neutrophils # Lymphocytes # PT INR ABG pH ABG pO2 ABG HCO3 ABG Total CO2 ABG O2 Saturation Sodium Potassium Chloride Carbon Dioxide BUN Creatinine Glucose POC Glucose (mg/dL) 286 H 179 H 131 H Hemoglobin A1c Plasma Lactic Acid [place] Calcium AST ALT Alkaline Phosphatase Total Protein Albumin Urine Appearance Urine Protein Urine Glucose (UA) Urine Blood Urine Bilirubin Ur Leukocyte Esterase Urine RBC Urine WBC Urine WBC Clumps Urine Bacteria Hyaline Casts Urine Mucus Urine Yeast (Budding) 08/20/23 08/21/23 08/21/23 20:18 05:50 08:55 WBC RBC Hgb Hct MCHC RDW Neutrophils # Lymphocytes # PT INR ABG pH ABG pO2 ABG HCO3 ABG Total CO2 ABG O2 Saturation Sodium Potassium Chloride Carbon Dioxide BUN Creatinine Glucose POC Glucose (mg/dL) 131 H 257 H Hemoglobin A1c 12.1 H Plasma Lactic Acid [place] Calcium AST ALT Alkaline Phosphatase Total Protein Albumin Urine Appearance Urine Protein Urine Glucose (UA) Urine Blood Urine Bilirubin Ur Leukocyte Esterase Urine RBC Urine WBC Urine WBC Clumps Urine Bacteria Hyaline Casts Urine Mucus Urine Yeast (Budding) 08/21/23 08/21/23 08/21/23 08:55 11:32 17:09 WBC RBC Hgb Hct MCHC RDW Neutrophils # Lymphocytes # PT INR ABG pH ABG pO2 ABG HCO3 ABG Total CO2 ABG O2 Saturation Sodium 136 L Potassium 5.7 H Chloride Carbon Dioxide 19 L BUN 50 H Creatinine 2.31 H Glucose 245 H POC Glucose (mg/dL) 279 H 279 H Hemoglobin A1c Plasma Lactic Acid [place] Calcium 7.8 L AST ALT Alkaline Phosphatase Total Protein Albumin Urine Appearance Urine Protein Urine Glucose (UA) Urine Blood Urine Bilirubin Ur Leukocyte Esterase Urine RBC Urine WBC Urine WBC Clumps Urine Bacteria Hyaline Casts Urine Mucus Urine Yeast (Budding) 08/21/23 08/22/23 08/22/23 20:08 06:04 07:37 WBC RBC Hgb Hct MCHC RDW Neutrophils # Lymphocytes # PT INR ABG pH ABG pO2 ABG HCO3 ABG Total CO2 ABG O2 Saturation Sodium Potassium Chloride 109 H Carbon Dioxide BUN 59 H Creatinine 2.56 H Glucose POC Glucose (mg/dL) 249 H 111 H Hemoglobin A1c Plasma Lactic Acid [place] Calcium 7.7 L AST ALT Alkaline Phosphatase Total Protein Albumin Urine Appearance Urine Protein Urine Glucose (UA) Urine Blood Urine Bilirubin Ur Leukocyte Esterase Urine RBC Urine WBC Urine WBC Clumps Urine Bacteria Hyaline Casts Urine Mucus Urine Yeast (Budding) 08/22/23 08/22/23 08/23/23 10:30 20:27 04:50 WBC RBC Hgb Hct MCHC RDW Neutrophils # Lymphocytes # PT INR ABG pH ABG pO2 ABG HCO3 ABG Total CO2 ABG O2 Saturation Sodium Potassium Chloride Carbon Dioxide BUN Creatinine Glucose POC Glucose (mg/dL) 131 H 164 H Hemoglobin A1c Plasma Lactic Acid [place] Calcium AST ALT Alkaline Phosphatase Total Protein Albumin Urine Appearance Cloudy H Urine Protein 2+ H Urine Glucose (UA) 3+ H Urine Blood Urine Bilirubin 1+ H Ur Leukocyte Esterase Large H Urine RBC Urine WBC 35 H Urine WBC Clumps Few H Urine Bacteria Many H Hyaline Casts 3 H Urine Mucus Urine Yeast (Budding) Many H 08/23/23 08/23/23 08/23/23 05:51 06:15 08:36 WBC 13.8 H RBC 3.38 L Hgb 9.5 L Hct 31.0 L MCHC 30.6 L RDW 16.8 H Neutrophils # 12.3 H Lymphocytes # 0.6 L PT INR ABG pH 7.25 L ABG pO2 268 H ABG HCO3 16 L ABG Total CO2 18 L ABG O2 Saturation 99.9 H Sodium Potassium Chloride Carbon Dioxide BUN Creatinine Glucose POC Glucose (mg/dL) Hemoglobin A1c Plasma Lactic Acid [place] Calcium AST ALT Alkaline Phosphatase Total Protein Albumin Urine Appearance Turbid H Urine Protein 2+ H Urine Glucose (UA) 1+ H Urine Blood Moderate H Urine Bilirubin 1+ H Ur Leukocyte Esterase Large H Urine RBC 56 H Urine WBC >182 H Urine WBC Clumps Few H Urine Bacteria Many H Hyaline Casts Urine Mucus Occasional H Urine Yeast (Budding) Many H 08/23/23 08/23/23 08:36 08:36 WBC RBC Hgb Hct MCHC RDW Neutrophils # Lymphocytes # PT 12.9 H INR 1.2 H ABG pH ABG pO2 ABG HCO3 ABG Total CO2 ABG O2 Saturation Sodium 135 L Potassium Chloride 111 H Carbon Dioxide 19 L BUN 62 H Creatinine 2.76 H Glucose POC Glucose (mg/dL) Hemoglobin A1c Plasma Lactic Acid [place] Calcium 6.9 L AST 468 H ALT 286 H Alkaline Phosphatase 440 H Total Protein 4.9 L Albumin 2.1 L Urine Appearance Urine Protein Urine Glucose (UA) Urine Blood Urine Bilirubin Ur Leukocyte Esterase Urine RBC Urine WBC Urine WBC Clumps Urine Bacteria Hyaline Casts Urine Mucus Urine Yeast (Budding) - Diagnostic Findings Chest x-ray: image reviewed Assessment and Plan Assessment: Cardiopulmonary arrest, x 2, with cardiopulmonary resuscitation, and return of spontaneous circulation. S/P intubation, and mechanical ventilation, secondary to cardiopulmonary arrest, August 23, 2023. Rule out anoxic brain injury. History of congestive heart failure. History of ischemic cardiomyopathy. Stage III chronic kidney disease. Right heel pressure ulcer. Subacute fracture of the medial and lateral malleolus. History of hypertension. History of hyperlipidemia. History of type 2 diabetes mellitus. History of severe pulmonary hypertension. History of COPD. History of peripheral neuropathy. Plan: Plan dated August 23, 2023. The patient is seen in the intensive care unit, room 255. I came in early this morning to place an arterial line, and the internal jugular triple-lumen catheter. The patient had poor IV access. The patient is currently on no repinephrine at 1.4 mcg/min. He is getting saline at 50 [address] A [address] scan of the brain, was negative. The patient blood gases show pO2 of 75, pCO2 of 49, pH of 7.44. We will continue to follow make recommendations along the way. The patient's overall prognosis remains very guarded. The patient continues on ceftriaxone, and fluconazole. Prognosis is guarded. Time with Patient: Greater than 30
[2023-08-23 12:34] LABS: Glucose,Whole Blood 73 mg/dL (70-110)
[2023-08-23] MEDS: ATROPINE SULFATE 0.1 MG/ML 10ML SYRINGE ONE (14:24)
[2023-08-23] MEDS: PIPERACILLIN-TAZOBACTAM 3.375 GM in SODIUM CHLORIDE 0.9% 100 ML IVPB SCH (14:28)
--- NOTE | 2023-08-23 15:55 | P.PN ---
Subjective Progress Note Date: 08/23/23 Principal diagnosis: Right heel wound; right ankle bimalleolar fracture Patient was seen at bedside this afternoon in the ICU currently intubated. Wound VAC dressing is present over the right heel. Patient currently in gallagher boots to the bilateral lower extremities. Due to the bimalleolar right ankle fracture patient was placed in a posterior short leg splint. Wound care, pu lmonology, medicine, vascular following patient Objective - Vital Signs Vital signs: Vital Signs Temp 97.7 F 08/23/23 01:34 Pulse 59 L 08/23/23 12:07 Resp 16 08/23/23 12:07 BP 155/88 08/23/23 10:00 Pulse Ox 96 08/23/23 11:15 FiO2 50 08/23/23 11:55 Intake & Output 08/22/23 08/23/23 08/23/23 18:59 06:59 18:59 Intake Total 1.398 250.657 Output Total 550 100 90 Balance -550 -98.602 160.657 Weight 69.9 kg 70.2 kg Intake: IV 200 Sodium Chloride 0.9% 1, 150 000 ml @ 50 mls/hr IV . Q20H [facility] Rx#:[id number] cefTRIAXone 1 gm In 50 Sodium Chloride 0.9% 50 ml @ 100 mls/hr IVPB Q12HR [facility] Rx#:[id number] Intake, IV Titration 1.398 50.657 Amount Norepinephrine 4 mg In 34.090 Sodium Chloride 0.9% 250 ml @ 0.03 MCG/KG/MIN 7.99 mls/hr IV .Q24H [facility] Rx#: [id number] propofoL 1,000 mg In 1.398 16.567 Empty Bag 1 bag @ 15 MCG/ KG/MIN 6.291 mls/hr IV . [id number] RYLIE Rx#:[id number] Output: Urine 550 100 90 Straight 550 Other: Voiding Method Bedside Commode ABP, PAP, CO, CI - Last Documented Arterial Blood Pressure 107/58 - Exam wound vac present to right heel. There does appear to be some moderate swelling to the right ankle at the medial and lateral malleolus. Positive for some ecchymosis surrounding the medial malleolus on the right ankle. Negative for any open fractures. Negative for any erythema. Active ROM and motor exam nt performed due to patients medical state. Radial pulses intact bilaterally. Cap refill under 3 seconds in upper extremities. DP pulses palpable on the right foot - Labs CBC & Chem 7: 08/23/23 08:36 08/23/23 08:36 Labs: Abnormal Lab Results - Last 24 Hours (Table) 08/22/23 08/23/23 08/23/23 Range/Units 20:27 04:50 05:51 WBC (3.8-10.6) k/uL RBC (3.80-5.40) m/uL Hgb (11.4-16.0) gm/dL Hct (34.0-46.0) % MCHC (31.0-37.0) g/dL RDW (11.5-15.5) % Neutrophils # (1.3-7.7) k/uL Lymphocytes # (1.0-4.8) k/uL PT (10.0-12.5) sec INR (<1.2) ABG pH 7.25 L (7.35-7.45) ABG pO2 268 H (83-108) mmHg ABG HCO3 16 L (21-25) mmol/L ABG Total CO2 18 L (19-24) mmol/L ABG O2 Saturation 99.9 H (94-97) % Sodium (137-145) mmol/L Chloride (98-107) mmol/L Carbon Dioxide (22-30) mmol/L BUN (7-17) mg/dL Creatinine (0.52-1.04) mg/dL POC Glucose (mg/dL) 131 H 164 H (70-110) mg/dL Calcium (8.4-10.2) mg/dL AST (14-36) U/L ALT (4-34) U/L Alkaline Phosphatase (38-126) U/L Total Protein (6.3-8.2) g/dL Albumin (3.5-5.0) g/dL Urine Appearance (Clear) Urine Protein (Negative) Urine Glucose (UA) (Negative) Urine Blood (Negative) Urine Bilirubin (Negative) Ur Leukocyte Esterase (Negative) Urine RBC (0-5) /hpf Urine WBC (0-5) /hpf Urine WBC Clumps (None) /hpf Urine Bacteria (None) /hpf Urine Mucus (None) /hpf Urine Yeast (Budding) (None) /hpf 08/23/23 08/23/23 08/23/23 Range/Units 06:15 08:36 08:36 WBC 13.8 H (3.8-10.6) k/uL RBC 3.38 L (3.80-5.40) m/uL Hgb 9.5 L (11.4-16.0) gm/dL Hct 31.0 L (34.0-46.0) % MCHC 30.6 L (31.0-37.0) g/dL RDW 16.8 H (11.5-15.5) % Neutrophils # 12.3 H (1.3-7.7) k/uL Lymphocytes # 0.6 L (1.0-4.8) k/uL PT 12.9 H (10.0-12.5) sec INR 1.2 H (<1.2) ABG pH (7.35-7.45) ABG pO2 (83-108) mmHg ABG HCO3 (21-25) mmol/L ABG Total CO2 (19-24) mmol/L ABG O2 Saturation (94-97) % Sodium (137-145) mmol/L Chloride (98-107) mmol/L Carbon Dioxide (22-30) mmol/L BUN (7-17) mg/dL Creatinine (0.52-1.04) mg/dL POC Glucose (mg/dL) (70-110) mg/dL Calcium (8.4-10.2) mg/dL AST (14-36) U/L ALT (4-34) U/L Alkaline Phosphatase (38-126) U/L Total Protein (6.3-8.2) g/dL Albumin (3.5-5.0) g/dL Urine Appearance Turbid H (Clear) Urine Protein 2+ H (Negative) Urine Glucose (UA) 1+ H (Negative) Urine Blood Moderate H (Negative) Urine Bilirubin 1+ H (Negative) Ur Leukocyte Esterase Large H (Negative) Urine RBC 56 H (0-5) /hpf Urine WBC >182 H (0-5) /hpf Urine WBC Clumps Few H (None) /hpf Urine Bacteria Many H (None) /hpf Urine Mucus Occasional H (None) /hpf Urine Yeast (Budding) Many H (None) /hpf 08/23/23 Range/Units 08:36 WBC (3.8-10.6) k/uL RBC (3.80-5.40) m/uL Hgb (11.4-16.0) gm/dL Hct (34.0-46.0) % MCHC (31.0-37.0) g/dL RDW (11.5-15.5) % Neutrophils # (1.3-7.7) k/uL Lymphocytes # (1.0-4.8) k/uL PT (10.0-12.5) sec INR (<1.2) ABG pH (7.35-7.45) ABG pO2 (83-108) mmHg ABG HCO3 (21-25) mmol/L ABG Total CO2 (19-24) mmol/L ABG O2 Saturation (94-97) % Sodium 135 L (137-145) mmol/L Chloride 111 H (98-107) mmol/L Carbon Dioxide 19 L (22-30) mmol/L BUN 62 H (7-17) mg/dL Creatinine 2.76 H (0.52-1.04) mg/dL POC Glucose (mg/dL) (70-110) mg/dL Calcium 6.9 L (8.4-10.2) mg/dL AST 468 H (14-36) U/L ALT 286 H (4-34) U/L Alkaline Phosphatase 440 H (38-126) U/L Total Protein 4.9 L (6.3-8.2) g/dL Albumin 2.1 L (3.5-5.0) g/dL Urine Appearance (Clear) Urine Protein (Negative) Urine Glucose (UA) (Negative) Urine Blood (Negative) Urine Bilirubin (Negative) Ur Leukocyte Esterase (Negative) Urine RBC (0-5) /hpf Urine WBC (0-5) /hpf Urine WBC Clumps (None) /hpf Urine Bacteria (None) /hpf Urine Mucus (None) /hpf Urine Yeast (Budding) (None) /hpf Microbiology - Last 24 Hours (Table) 08/22/23 10:30 Urine Culture - Preliminary Urine,Voided Gram Neg Bacilli Assessment and Plan Assessment: 1. Fracture, subacute, right ankle medial and lateral malleoli 2. Ulcer, right heel 3. Multiple medical comorbidities Plan: 1. Fracture, subacute, right ankle medial and lateral malleoli; Ulcer, right heel - wound vac present over right heel. xrays right ankle reveal bimalleolar fracture with mortise disruption. I did discuss the findings the imaging and exam with my attending, Dr. Kent. At this time we are recommending patient be nonweightbearing to the right lower extremity. We placed patient in posteiror short leg splint to RLE. We are not recommending any emergent/urgent orthopedic surgical intervention at this time. Once patient is stable medically, patient likely needs surgical intervention for ORIF medial and lateral malleolus and external fixation of right ankle. Patient to remain nonweightbearing to the right lower extremity. we will continue to follow patient during stay in hospital. 2. Appreciate medical, cardiology, wound care management 3. Pain management - gabapentin; Lyndon; Tylenol 4. DVT prophylaxis - aspirin; Plavix; heparin 5. GI prophylaxis recs 6. PT/OT - nonweightbearing right lower extremity. Weight-bear as tolerated left lower extremity with walker and assistance as needed 7. Encourage incentive spirometer use Time with Patient: Less than 30
--- NOTE | 2023-08-23 16:00 | P.PN ---
Subjective Progress Note Date: 08/23/23 57-year-old female came in with complaints of shortness of breath and orthopnea found to be in congestive heart failure exacerbation patient has congestive heart failure with reduced ejection fraction in the past patient has increasing pedal edema. Patient also has an ulcer in the right foot stage III-IV which appeared to be infected we will consult wound care and infectious disease. Patient was on hemodialysis during last hospitalization her creatinine presently is 1.5 which is significantly improved patient potassium is 5.5, patient is on Entresto and Aldactone Aldactone will be held Entresto will be continued since she is receiving IV Lasix and expecting her potassium to improve if it does not improve or get worse then Entresto need to be discontinued as well. Patient has hypervolemic hyponatremia and hyperglycemia. 08/21/2023 Was evaluated today on the medical floor. Patient was continued on IV Lasix overnight however she was no longer reporting any shortness of breath and her lower extremity edema has improved. She was taken off of the Lasix at this time due to increased creatinine up to 2.31 additionally potassium remains elevated at 5.7. Echocardiogram comes back showing an improved ejection fraction of 60 to 65% because of this and also the hyperkalemia patient will not be continued on entresto. Patient was evaluated by infectious disease who felt like that heel ulcer on the right side was more likely a pressure injury stage III and is recommending local wound care to continue with Aquacel. Patient is reporting significant pain to the right foot and feels like it is fractured. Upon review of the patient's chart she did have a x-ray completed of this 12 days ago ordered by her credentialing manager Dr. Mayen. Ankle x-ray did review a mildly displaced acute distal fibular fracture. Repeat x-ray of the foot and ankle completed today does reveal a subacute fractures of the medial and lateral malleolus. The lateral malleolus fracture was seen on the patient's prior exam the medial malleolus fracture may be new in the interval and this would be considered an unstable ankle fracture. There is interval 6 mm displacement of the lateral malleolus. There is a deep soft tissue ulcer at the plantar heel with no clear radiographic findings of a contagious osteomyelitis at this time. Orthooedics was consulted for this. 08/22/2023 Patient evaluated in follow-up today resting in bed. She was taken off of the Lasix remains off at this time. Bladder scan was requested and not done yesterday to rule out urinary retention, creatinine today is increased up to 2.56. Bladder scan was done require urinary straight catheterization of 550 mL taken out. Urinalysis was sent which is significantly abnormal. Patient is also noted to have multiple genital lesions which appear wartlike she admits to not having any routine gynecological screenings for many years. She is not having any vaginal bleeding or discharge. Renal ultrasound has been ordered to rule out any obstructive uropathy. 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 Patient upon arrival to the intensive care unit had another episode of cardiac arrest patient had bradycardia while on pressors in the ICU patient was intubated following the first cardiac arrest and is currently on the mechanical ventilator 50% FiO2. Chest x-ray showing similar interstitial and patchy component airspace disease right greater than left. There is a possible trace left pleural effusion. A brain CT which shows no acute intracranial process. Blood work today shows a white blood cell count of 13.8, hemoglobin 9.5, sodium level of 135, BUN of 62, creatinine of 2.76. AST ALT and alk phosphatase are significantly elevated consistent with a shock liver. TSH 3.310. Urinalysis is abnormal. Her urine culture is showing gram-negative bacilli patient is covered for the urinary tract infection as well as aspiration with IV Zosyn being managed by infectious disease. Patient is currently sedated with propofol and did require vasopressor support with Levophed which has been weaned at this time. Will discontinue the gabapentin patient is continued on aspirin Plavix and statin has been placed on hold. There is concern for possible arrhythmia precipitating the asystole additionally we need to rule out embolism and a D-dimer has been ordered. Review of Systems Unable to complete a review of systems at this time patient is currently intubated and sedated in the intensive care unit. All inpatient medications were reviewed and appropriate changes in these medications as dictated in the interval history and assessment and plan. PHYSICAL EXAMINATION: GENERAL: The patient is alert and oriented x0 sedated, not in any acute distress. Well developed, well nourished. HEENT: Pupils are round and equally reacting to light. EOMI. No scleral icterus. No conjunctival pallor. Normocephalic, atraumatic. No pharyngeal erythema. No thyromegaly. CARDIOVASCULAR: S1 and S2 present. No murmurs, rubs, or gallops. PULMONARY: Chest is clear to auscultation, no wheezing or crackles. ABDOMEN: Soft, nontender, nondistended, normoactive bowel sounds. No palpable organomegaly. MUSCULOSKELETAL: No joint swelling or deformity. EXTREMITIES: No cyanosis, clubbing, bilateral pedal edema NEUROLOGICAL: pupils reactive unable to assess sedated SKIN: Patient has right plantar surface ulcer on the posterior foot stage III-IV with areas of tissue Assessment and plan -Asystole/cardiopulmonary arrest x 2 with CPR/ROSC currently intubated and sedated in the ICU could be due to arrhythmia need to rule out emobolism. D- Dimer has been ordered and if positive would need to order a VQ scan unable to do a CT angiography due to the renal dysfunction. -Unresponsiveness, neurology has been consulted need to rule out anoxic brain injury; Brain CT reviewed and EEG ordered by neurology. -Congestive heart failure chronic systolic dysfunction with acute exacerbation: Treated with IV lasix and remains on farxiga. Patient had improved EF of 60-65% and was not started on entresto at this time. Lasix is being held. -Ischemic cardiomyopathy with improved EF. -Chronic kidney disease stage III patient was on hemodialysis due to cardiorenal syndrome and had improved kidney function is no longer a hemodialysis patient. Creatinine worsening. Nephrology following. -Acute kidney injury due to ATN -Abnormal urinalysis showing gram negative bacilli, on antibiotic coverage empirically. -Urinary retention, abdominal/renal ultrasound unremarkable -Hyperkalemia treated with lokelma and repeat labs in the AM. -Nausea possibly from the elevated creatinine and hyperkalemia continue with antiemetics. -Subacute fracture of the medial and lateral malleolus, orthopedics was consulted. -Right heel stage III pressure injury continue local wound care with aquacel ID following. -Genital lesions, will need director immunology follow up outpatient for routine screenings -Hypertension -Hyperlipidemia -Type 2 diabetes mellitus uncontrolled hgb a1c 12.1, continue with accuchecks A CHS, sliding scale insulin, and levemir -Severe pulmonary hypertension -COPD without any acute exacerbation -Peripheral neuropathy DVT prophylaxis: Subcutaneous heparin Patient is currently intubated and sedated in the ICU. D-Dimer ordered; will order a VQ scan if elevated. Check procalcitonin, blood cultures and permacath from the right chest wall will be removed and catheter tip sent for culture. Cause of arrest does not appear to be infectious in nature patient has not been febrile, white blood cell count normal on admission. We will check cultures and continue empiric antibiotics at this time. Remain off lasix. Multiple consultations following including nephrology, cardiology, ID, orthopedics, pulmonary branch service representative. Repeat labs in the AM. prognosis remains guarded. Family has been updated at the bedside today. The impression and plan of care has been dictated by Susana Roman, Nurse Practitioner as directed. Dr. Ricardo MD I have performed a history and physical examination and medical decision making of this patient, discussed the same with the dictator, and agree with the dictators assessment and plan as written, documented as a scribe. Based on total visit time, I have performed more than 50% of this visit. Objective - Vital Signs Vital signs: Vital Signs Temp 97.4 F L 08/23/23 12:00 Pulse 58 L 08/23/23 13:15 Resp 13 08/23/23 13:15 BP 155/88 08/23/23 10:00 Pulse Ox 99 08/23/23 13:15 FiO2 50 08/23/23 11:55 Intake & Output 08/22/23 08/23/23 08/23/23 18:59 06:59 18:59 Intake Total 1.398 400.657 Output Total 550 100 250 Balance -550 -98.602 150.657 Weight 69.9 kg 70.2 kg Intake: IV 350 Sodium Chloride 0.9% 1, 300 000 ml @ 50 mls/hr IV . Q20H [facility] Rx#:[id number] cefTRIAXone 1 gm In 50 Sodium Chloride 0.9% 50 ml @ 100 mls/hr IVPB Q12HR [facility] Rx#:[id number] Intake, IV Titration 1.398 50.657 Amount Norepinephrine 4 mg In 34.090 Sodium Chloride 0.9% 250 ml @ 0.03 MCG/KG/MIN 7.99 mls/hr IV .Q24H [facility] Rx#: [id number] propofoL 1,000 mg In 1.398 16.567 Empty Bag 1 bag @ 15 MCG/ KG/MIN 6.291 mls/hr IV . [id number] [facility] Rx#:[id number] Output: Urine 550 100 250 Straight 550 Other: Voiding Method Bedside Commode Indwelling Catheter ABP, PAP, CO, CI - Last Documented Arterial Blood Pressure 142/69 - Labs CBC & Chem 7: 08/23/23 08:36 08/23/23 08:36 Labs: Abnormal Lab Results - Last 24 Hours (Table) 08/22/23 08/23/23 08/23/23 Range/Units 20:27 04:50 05:51 WBC (3.8-10.6) k/uL RBC (3.80-5.40) m/uL Hgb (11.4-16.0) gm/dL Hct (34.0-46.0) % MCHC (31.0-37.0) g/dL RDW (11.5-15.5) % Neutrophils # (1.3-7.7) k/uL Lymphocytes # (1.0-4.8) k/uL PT (10.0-12.5) sec INR (<1.2) ABG pH 7.25 L (7.35-7.45) ABG pO2 268 H (83-108) mmHg ABG HCO3 16 L (21-25) mmol/L ABG Total CO2 18 L (19-24) mmol/L ABG O2 Saturation 99.9 H (94-97) % Sodium (137-145) mmol/L Chloride (98-107) mmol/L Carbon Dioxide (22-30) mmol/L BUN (7-17) mg/dL Creatinine (0.52-1.04) mg/dL POC Glucose (mg/dL) 131 H 164 H (70-110) mg/dL Calcium (8.4-10.2) mg/dL AST (14-36) U/L ALT (4-34) U/L Alkaline Phosphatase (38-126) U/L Total Protein (6.3-8.2) g/dL Albumin (3.5-5.0) g/dL Urine Appearance (Clear) Urine Protein (Negative) Urine Glucose (UA) (Negative) Urine Blood (Negative) Urine Bilirubin (Negative) Ur Leukocyte Esterase (Negative) Urine RBC (0-5) /hpf Urine WBC (0-5) /hpf Urine WBC Clumps (None) /hpf Urine Bacteria (None) /hpf Urine Mucus (None) /hpf Urine Yeast (Budding) (None) /hpf 08/23/23 08/23/23 08/23/23 Range/Units 06:15 08:36 08:36 WBC 13.8 H (3.8-10.6) k/uL RBC 3.38 L (3.80-5.40) m/uL Hgb 9.5 L (11.4-16.0) gm/dL Hct 31.0 L (34.0-46.0) % MCHC 30.6 L (31.0-37.0) g/dL RDW 16.8 H (11.5-15.5) % Neutrophils # 12.3 H (1.3-7.7) k/uL Lymphocytes # 0.6 L (1.0-4.8) k/uL PT 12.9 H (10.0-12.5) sec INR 1.2 H (<1.2) ABG pH (7.35-7.45) ABG pO2 (83-108) mmHg ABG HCO3 (21-25) mmol/L ABG Total CO2 (19-24) mmol/L ABG O2 Saturation (94-97) % Sodium (137-145) mmol/L Chloride (98-107) mmol/L Carbon Dioxide (22-30) mmol/L BUN (7-17) mg/dL Creatinine (0.52-1.04) mg/dL POC Glucose (mg/dL) (70-110) mg/dL Calcium (8.4-10.2) mg/dL AST (14-36) U/L ALT (4-34) U/L Alkaline Phosphatase (38-126) U/L Total Protein (6.3-8.2) g/dL Albumin (3.5-5.0) g/dL Urine Appearance Turbid H (Clear) Urine Protein 2+ H (Negative) Urine Glucose (UA) 1+ H (Negative) Urine Blood Moderate H (Negative) Urine Bilirubin 1+ H (Negative) Ur Leukocyte Esterase Large H (Negative) Urine RBC 56 H (0-5) /hpf Urine WBC >182 H (0-5) /hpf Urine WBC Clumps Few H (None) /hpf Urine Bacteria Many H (None) /hpf Urine Mucus Occasional H (None) /hpf Urine Yeast (Budding) Many H (None) /hpf 08/23/23 Range/Units 08:36 WBC (3.8-10.6) k/uL RBC (3.80-5.40) m/uL Hgb (11.4-16.0) gm/dL Hct (34.0-46.0) % MCHC (31.0-37.0) g/dL RDW (11.5-15.5) % Neutrophils # (1.3-7.7) k/uL Lymphocytes # (1.0-4.8) k/uL PT (10.0-12.5) sec INR (<1.2) ABG pH (7.35-7.45) ABG pO2 (83-108) mmHg ABG HCO3 (21-25) mmol/L ABG Total CO2 (19-24) mmol/L ABG O2 Saturation (94-97) % Sodium 135 L (137-145) mmol/L Chloride 111 H (98-107) mmol/L Carbon Dioxide 19 L (22-30) mmol/L BUN 62 H (7-17) mg/dL Creatinine 2.76 H (0.52-1.04) mg/dL POC Glucose (mg/dL) (70-110) mg/dL Calcium 6.9 L (8.4-10.2) mg/dL AST 468 H (14-36) U/L ALT 286 H (4-34) U/L Alkaline Phosphatase 440 H (38-126) U/L Total Protein 4.9 L (6.3-8.2) g/dL Albumin 2.1 L (3.5-5.0) g/dL Urine Appearance (Clear) Urine Protein (Negative) Urine Glucose (UA) (Negative) Urine Blood (Negative) Urine Bilirubin (Negative) Ur Leukocyte Esterase (Negative) Urine RBC (0-5) /hpf Urine WBC (0-5) /hpf Urine WBC Clumps (None) /hpf Urine Bacteria (None) /hpf Urine Mucus (None) /hpf Urine Yeast (Budding) (None) /hpf Microbiology - Last 24 Hours (Table) 08/22/23 10:30 Urine Culture - Preliminary Urine,Voided Gram Neg Bacilli Assessment and Plan Time with Patient: Greater than 30
[2023-08-23 17:33] LABS: Glucose,Whole Blood 76 mg/dL (70-110)
--- NOTE | 2023-08-23 18:45 | P.CNNES ---
History of Present Illness Consult date: 08/23/23 Requesting physician: Susana Roman Reason for Consult: unresponsiveness, cardiac arrest History of Present Illness: This is a 57-year-old woman who is admitted on 08/19/2023 for right heel wound and today she had cardiopulmonary arrest. History is obtained from medical records and patient's nurse. It seems the patient today was found bradycardiac then went into aystole. She received 3 round of epinephrine and first episode was around 4ish am today and as result was intubated on ventilator. Then had another episode around 6:30am and was PEA and received 2 rounds of epi and atropine. Per nurse each episode lasted about 6 minutes. She received paralytic and sedation and sedation was held about 2 hours prior to my examination. Per nurse her pupils are dilated and nonreactive and had extensor posturing. She has history of coronary artery disease and is on stent. Has history of CHF, ischemic cardiomyopathy, CKD, HTN, DM, Peripheral neuropathy. Some of the work-up during this hospital visit consisted of: Is hypotensive. It seems she is hypotensive as low as 60's/40 today in director [facility]. Initial wbc is 9.2K and currently is 13.8K Today troponin is 1.010 and on presentation was normal. AST is 468 and ALT is 286 and on presentation was normal. Creatnine is trending up on this admission. glucose is normal. TSH: 2.31 CT head is reported as not acute intracranial process. I personally reviewed CT and agree with report. 2D echo: It is reported as increased right vent systolic function. Review of Systems Limited but the positive and negative as per HPI. Past Medical History Past Medical History: Diabetes Mellitus, Hyperlipidemia, Hypertension, Renal Disease Additional Past Medical History / Comment(s): restless leg, neurothopy, Guillain-Davidson, dialysis History of Any Multi-Drug Resistant Organisms: None Reported Past Surgical History: Orthopedic Surgery, Tonsillectomy Additional Past Surgical History / Comment(s): "plate in left leg to straighten leg as a child" - plate removed, right total hip replacement due to a fracture from a fall, dialysis Past Anesthesia/Blood Transfusion Reactions: No Reported Reaction Past Psychological History: No Psychological Hx Reported Smoking Status: Former smoker Past Alcohol Use History: None Reported Past Drug Use History: None Reported Medications and Allergies Home Medications Medication Instructions Recorded Confirmed Type Dapagliflozin Propanediol [Farxiga] 5 mg PO DAILY 04/17/23 08/19/23 History Ezetimibe [Zetia] 10 mg PO DAILY 04/17/23 08/19/23 History Multivitamins, Thera [Multivitamin 1 tab PO DAILY 04/17/23 08/19/23 History (formulary)] rOPINIRole HCL [Requip] 1 mg PO HS 04/17/23 08/19/23 History Acetaminophen Tab [Tylenol] 500 mg PO Q6HR PRN tab 05/24/23 08/19/23 Rx Torsemide [Demadex] 40 mg PO DAILY 90 Days #90 tab 05/24/23 08/19/23 Rx Aspirin 81 mg PO DAILY 90 Days #90 tab 06/25/23 08/19/23 Rx Atorvastatin [Lipitor] 40 mg PO DAILY 90 Days #90 06/25/23 08/19/23 Rx Clopidogrel [Plavix] 75 mg PO DAILY 90 Days #90 tab 06/25/23 08/19/23 Rx Budesonide [Pulmicort] 0.5 mg INHALATION RT-BID PRN 08/19/23 08/19/23 History Diclofenac Sodium [Voltaren] 75 mg PO BID 08/19/23 08/19/23 History Gabapentin 600 mg PO QID 08/19/23 08/19/23 History INSULIN ASPART (NovoLOG) [NovoLOG 10 unit SQ AC-TID 08/19/23 08/19/23 History (formulary)] Isosorbide Mononitrate ER [Imdur] 15 mg PO DAILY 08/19/23 08/19/23 History Spironolactone [Aldactone] 25 mg PO DAILY 08/19/23 08/19/23 History hydrALAZINE HCL [Apresoline] 25 mg PO TID 08/19/23 08/19/23 History lisinopriL [Zestril] 10 mg PO DAILY 08/19/23 08/19/23 History Allergies Allergy/AdvReac Type Severity Reaction Status Date / Time No Known Allergies Allergy Verified 08/19/23 13:55 Physical Examination - Vital Signs Vital Signs: Vital Signs Temp Pulse Pulse Resp BP BP Pulse Ox 08/23/23 18:15 70 16 99 08/23/23 18:00 69 16 99 08/23/23 17:45 59 L 16 99 08/23/23 17:30 65 16 100 08/23/23 17:15 57 L 16 100 08/23/23 17:00 56 L 16 100 08/23/23 16:45 57 L 16 100 08/23/23 16:30 57 L 16 100 08/23/23 16:15 57 L 16 100 08/23/23 16:00 57 L 16 100 08/23/23 15:45 57 L 16 100 08/23/23 15:30 60 16 99 08/23/23 15:23 64 16 08/23/23 15:15 62 16 100 08/23/23 15:10 62 16 08/23/23 15:05 08/23/23 15:00 61 16 99 08/23/23 14:45 61 16 99 08/23/23 14:30 60 16 99 08/23/23 14:15 61 16 99 08/23/23 14:00 62 16 99 08/23/23 13:45 61 16 99 08/23/23 13:30 60 16 99 08/23/23 13:15 58 L 13 99 08/23/23 13:00 59 L 5 L 98 08/23/23 12:45 59 L 16 98 08/23/23 12:30 59 L 16 99 08/23/23 12:15 60 16 98 08/23/23 12:07 59 L 16 08/23/23 12:00 97.4 F L 59 L 16 98 08/23/23 11:55 08/23/23 11:45 58 L 16 98 08/23/23 11:30 58 L 16 97 08/23/23 11:15 59 L 16 96 08/23/23 11:00 59 L 16 97 08/23/23 10:45 59 L 16 97 08/23/23 10:25 08/23/23 10:00 58 L 0 L 155/88 96 08/23/23 09:45 59 L 3 L 155/88 99 08/23/23 09:30 59 L 2 L 98 08/23/23 09:15 57 L 16 120/73 99 08/23/23 09:10 56 L 16 08/23/23 09:00 56 L 16 124/71 95 08/23/23 08:45 56 L 16 124/71 94 L 08/23/23 08:30 58 L 16 124/72 95 08/23/23 08:27 08/23/23 08:15 60 16 95 08/23/23 08:00 62 16 95 08/23/23 07:45 60 16 94 L 08/23/23 07:00 71 16 175/94 89 L 08/23/23 06:55 84 16 218/120 88 L 08/23/23 06:50 90 16 89 L 08/23/23 06:45 87 16 99 08/23/23 06:40 16 72/59 100 08/23/23 06:35 126 H 16 99 08/23/23 06:30 96 16 92 L 08/23/23 06:25 82 16 48/32 84 L 08/23/23 06:20 53 L 16 78/62 82 L 08/23/23 06:15 43 L 16 79/21 84 L 08/23/23 06:10 47 L 16 50/32 98 08/23/23 06:05 53 L 16 50/33 98 08/23/23 06:04 08/23/23 06:00 51 L 16 62/43 98 08/23/23 05:55 54 L 16 65/49 100 08/23/23 05:51 54 L 16 65/49 100 08/23/23 05:50 65/49 08/23/23 05:45 64/43 08/23/23 05:39 08/23/23 05:35 84/57 08/23/23 05:33 86/56 08/23/23 05:21 117/93 08/23/23 01:34 97.7 F 51 L 17 107/64 97 08/22/23 19:10 97.7 F 64 17 109/71 92 L FiO2 08/23/23 18:15 08/23/23 18:00 08/23/23 17:45 08/23/23 17:30 08/23/23 17:15 08/23/23 17:00 08/23/23 16:45 08/23/23 16:30 08/23/23 16:15 08/23/23 16:00 50 08/23/23 15:45 08/23/23 15:30 08/23/23 15:23 08/23/23 15:15 08/23/23 15:10 08/23/23 15:05 50 08/23/23 15:00 08/23/23 14:45 08/23/23 14:30 08/23/23 14:15 08/23/23 14:00 08/23/23 13:45 08/23/23 13:30 08/23/23 13:15 08/23/23 13:00 08/23/23 12:45 08/23/23 12:30 08/23/23 12:15 08/23/23 12:07 08/23/23 12:00 50 08/23/23 11:55 50 08/23/23 11:45 08/23/23 11:30 08/23/23 11:15 08/23/23 11:00 08/23/23 10:45 08/23/23 10:25 50 08/23/23 10:00 08/23/23 09:45 08/23/23 09:30 08/23/23 09:15 08/23/23 09:10 08/23/23 09:00 08/23/23 08:45 08/23/23 08:30 08/23/23 08:27 50 08/23/23 08:15 08/23/23 08:00 50 08/23/23 07:45 50 08/23/23 07:00 08/23/23 06:55 08/23/23 06:50 08/23/23 06:45 08/23/23 06:40 08/23/23 06:35 08/23/23 06:30 08/23/23 06:25 08/23/23 06:20 08/23/23 06:15 08/23/23 06:10 08/23/23 06:05 50 08/23/23 06:04 50 08/23/23 06:00 08/23/23 05:55 100 08/23/23 05:51 08/23/23 05:50 08/23/23 05:45 08/23/23 05:39 100 08/23/23 05:35 08/23/23 05:33 08/23/23 05:21 08/23/23 01:34 08/22/23 19:10 Intake and Output 08/23/23 08/23/23 08/23/23 06:59 14:59 22:59 Intake Total 1.398 450.657 50 Output Total 100 290 20 Balance -98.602 160.657 30 Intake: IV 400 50 Sodium Chloride 0.9% 1, 350 50 000 ml @ 50 mls/hr IV . Q20H RYLIE Rx#:[id number] cefTRIAXone 1 gm In 50 Sodium Chloride 0.9% 50 ml @ 100 mls/hr IVPB Q12HR RYLIE Rx#:[id number] Intake, IV Titration 1.398 50.657 Amount Norepinephrine 4 mg In 34.090 Sodium Chloride 0.9% 250 ml @ 0.03 MCG/KG/MIN 7.99 mls/hr IV .Q24H RYLIE Rx#: [id number] propofoL 1,000 mg In 1.398 16.567 Empty Bag 1 bag @ 15 MCG/ KG/MIN 6.291 mls/hr IV . [id number] RYLIE Rx#:[id number] Output: Urine 100 290 20 Other: Voiding Method Indwelling Catheter Weight 70.2 kg 70.2 kg ABP, PAP, CO, CI - Last 8 Hours Arterial Blood Pressure 172/73 Arterial Blood Pressure 171/73 Arterial Blood Pressure 168/73 Arterial Blood Pressure 166/72 Arterial Blood Pressure 165/72 Arterial Blood Pressure 160/70 Arterial Blood Pressure 159/70 Arterial Blood Pressure 156/69 Arterial Blood Pressure 154/68 Arterial Blood Pressure 152/67 Arterial Blood Pressure 155/68 Arterial Blood Pressure 175/75 Arterial Blood Pressure 191/91 Arterial Blood Pressure 154/69 Arterial Blood Pressure 151/71 Arterial Blood Pressure 152/69 Arterial Blood Pressure 156/74 Arterial Blood Pressure 166/80 Arterial Blood Pressure 149/69 Arterial Blood Pressure 149/72 Arterial Blood Pressure 142/69 Arterial Blood Pressure 128/62 Arterial Blood Pressure 129/62 Arterial Blood Pressure 128/63 Arterial Blood Pressure 127/63 Arterial Blood Pressure 115/59 Arterial Blood Pressure 122/63 Arterial Blood Pressure 116/63 Arterial Blood Pressure 107/58 Arterial Blood Pressure 116/61 Arterial Blood Pressure 119/61 General: Lying in bed and does not appear in acute distress. Resp: Intubated on ventilator. Neuro: Limited since was on sedation earlier and paralytic. Last use was 2 hours prior examination. Is comatose. GCS 6 (E1, VT1, M4) I had to open eyes and primary gaze is midline. Pupils are dilated about 5-6mm and reactive to light bilaterally. Has positive corneal reflex. Negative occulocephalic. Negative gag or cough. Is breathing over the vent. Motor: Has subtle withdrawal to painful bilaterally. No spontaneous movement. Reflex: 1+ throughout. Results - Laboratory Findings CBC and BMP: 08/23/23 08:36 08/23/23 08:36 Abnormal Lab Findings: Abnormal Labs 08/19/23 08/19/23 08/19/23 12:42 12:42 12:42 WBC RBC 3.69 L Hgb 10.5 L Hct 33.8 L MCHC RDW 16.7 H Neutrophils # Lymphocytes # 0.6 L PT INR D-Dimer ABG pH ABG pO2 ABG HCO3 ABG Total CO2 ABG O2 Saturation Sodium 134 L Potassium 5.5 H Chloride 109 H Carbon Dioxide 20 L BUN 39 H Creatinine 1.51 H Glucose 423 H POC Glucose (mg/dL) Hemoglobin A1c Plasma Lactic Acid [place] 0.6 L Calcium 7.9 L AST ALT Alkaline Phosphatase 299 H Troponin I C-Reactive Protein Total Protein 5.6 L Albumin 2.7 L Urine Appearance Urine Protein Urine Glucose (UA) Urine Blood Urine Bilirubin Ur Leukocyte Esterase Urine RBC Urine WBC Urine WBC Clumps Urine Bacteria Hyaline Casts Urine Mucus Urine Yeast (Budding) 08/20/23 08/20/23 08/20/23 08:40 12:44 17:02 WBC RBC Hgb Hct MCHC RDW Neutrophils # Lymphocytes # PT INR D-Dimer ABG pH ABG pO2 ABG HCO3 ABG Total CO2 ABG O2 Saturation Sodium Potassium Chloride Carbon Dioxide BUN Creatinine Glucose POC Glucose (mg/dL) 286 H 179 H 131 H Hemoglobin A1c Plasma Lactic Acid [place] Calcium AST ALT Alkaline Phosphatase Troponin I C-Reactive Protein Total Protein Albumin Urine Appearance Urine Protein Urine Glucose (UA) Urine Blood Urine Bilirubin Ur Leukocyte Esterase Urine RBC Urine WBC Urine WBC Clumps Urine Bacteria Hyaline Casts Urine Mucus Urine Yeast (Budding) 08/20/23 08/21/23 08/21/23 20:18 05:50 08:55 WBC RBC Hgb Hct MCHC RDW Neutrophils # Lymphocytes # PT INR D-Dimer ABG pH ABG pO2 ABG HCO3 ABG Total CO2 ABG O2 Saturation Sodium Potassium Chloride Carbon Dioxide BUN Creatinine Glucose POC Glucose (mg/dL) 131 H 257 H Hemoglobin A1c 12.1 H Plasma Lactic Acid [place] Calcium AST ALT Alkaline Phosphatase Troponin I C-Reactive Protein Total Protein Albumin Urine Appearance Urine Protein Urine Glucose (UA) Urine Blood Urine Bilirubin Ur Leukocyte Esterase Urine RBC Urine WBC Urine WBC Clumps Urine Bacteria Hyaline Casts Urine Mucus Urine Yeast (Budding) 08/21/23 08/21/23 08/21/23 08:55 11:32 17:09 WBC RBC Hgb Hct MCHC RDW Neutrophils # Lymphocytes # PT INR D-Dimer ABG pH ABG pO2 ABG HCO3 ABG Total CO2 ABG O2 Saturation Sodium 136 L Potassium 5.7 H Chloride Carbon Dioxide 19 L BUN 50 H Creatinine 2.31 H Glucose 245 H POC Glucose (mg/dL) 279 H 279 H Hemoglobin A1c Plasma Lactic Acid [place] Calcium 7.8 L AST ALT Alkaline Phosphatase Troponin I C-Reactive Protein Total Protein Albumin Urine Appearance Urine Protein Urine Glucose (UA) Urine Blood Urine Bilirubin Ur Leukocyte Esterase Urine RBC Urine WBC Urine WBC Clumps Urine Bacteria Hyaline Casts Urine Mucus Urine Yeast (Budding) 08/21/23 08/22/23 08/22/23 20:08 06:04 07:37 WBC RBC Hgb Hct MCHC RDW Neutrophils # Lymphocytes # PT INR D-Dimer ABG pH ABG pO2 ABG HCO3 ABG Total CO2 ABG O2 Saturation Sodium Potassium Chloride 109 H Carbon Dioxide BUN 59 H Creatinine 2.56 H Glucose POC Glucose (mg/dL) 249 H 111 H Hemoglobin A1c Plasma Lactic Acid [place] Calcium 7.7 L AST ALT Alkaline Phosphatase Troponin I C-Reactive Protein Total Protein Albumin Urine Appearance Urine Protein Urine Glucose (UA) Urine Blood Urine Bilirubin Ur Leukocyte Esterase Urine RBC Urine WBC Urine WBC Clumps Urine Bacteria Hyaline Casts Urine Mucus Urine Yeast (Budding) 08/22/23 08/22/23 08/23/23 10:30 20:27 04:50 WBC RBC Hgb Hct MCHC RDW Neutrophils # Lymphocytes # PT INR D-Dimer ABG pH ABG pO2 ABG HCO3 ABG Total CO2 ABG O2 Saturation Sodium Potassium Chloride Carbon Dioxide BUN Creatinine Glucose POC Glucose (mg/dL) 131 H 164 H Hemoglobin A1c Plasma Lactic Acid [place] Calcium AST ALT Alkaline Phosphatase Troponin I C-Reactive Protein Total Protein Albumin Urine Appearance Cloudy H Urine Protein 2+ H Urine Glucose (UA) 3+ H Urine Blood Urine Bilirubin 1+ H Ur Leukocyte Esterase Large H Urine RBC Urine WBC 35 H Urine WBC Clumps Few H Urine Bacteria Many H Hyaline Casts 3 H Urine Mucus Urine Yeast (Budding) Many H 08/23/23 08/23/23 08/23/23 05:51 06:15 08:36 WBC 13.8 H RBC 3.38 L Hgb 9.5 L Hct 31.0 L MCHC 30.6 L RDW 16.8 H Neutrophils # 12.3 H Lymphocytes # 0.6 L PT INR D-Dimer ABG pH 7.25 L ABG pO2 268 H ABG HCO3 16 L ABG Total CO2 18 L ABG O2 Saturation 99.9 H Sodium Potassium Chloride Carbon Dioxide BUN Creatinine Glucose POC Glucose (mg/dL) Hemoglobin A1c Plasma Lactic Acid [place] Calcium AST ALT Alkaline Phosphatase Troponin I C-Reactive Protein Total Protein Albumin Urine Appearance Turbid H Urine Protein 2+ H Urine Glucose (UA) 1+ H Urine Blood Moderate H Urine Bilirubin 1+ H Ur Leukocyte Esterase Large H Urine RBC 56 H Urine WBC >182 H Urine WBC Clumps Few H Urine Bacteria Many H Hyaline Casts Urine Mucus Occasional H Urine Yeast (Budding) Many H 08/23/23 08/23/23 08/23/23 08:36 08:36 13:27 WBC RBC Hgb Hct MCHC RDW Neutrophils # Lymphocytes # PT 12.9 H INR 1.2 H D-Dimer ABG pH ABG pO2 ABG HCO3 ABG Total CO2 ABG O2 Saturation Sodium 135 L Potassium Chloride 111 H Carbon Dioxide 19 L BUN 62 H Creatinine 2.76 H Glucose POC Glucose (mg/dL) Hemoglobin A1c Plasma Lactic Acid [place] Calcium 6.9 L AST 468 H ALT 286 H Alkaline Phosphatase 440 H Troponin I C-Reactive Protein 4.6 H Total Protein 4.9 L Albumin 2.1 L Urine Appearance Urine Protein Urine Glucose (UA) Urine Blood Urine Bilirubin Ur Leukocyte Esterase Urine RBC Urine WBC Urine WBC Clumps Urine Bacteria Hyaline Casts Urine Mucus Urine Yeast (Budding) 08/23/23 08/23/23 16:00 17:35 WBC RBC Hgb Hct MCHC RDW Neutrophils # Lymphocytes # PT INR D-Dimer 16.37 H ABG pH ABG pO2 ABG HCO3 ABG Total CO2 ABG O2 Saturation Sodium Potassium Chloride Carbon Dioxide BUN Creatinine Glucose POC Glucose (mg/dL) Hemoglobin A1c Plasma Lactic Acid [place] Calcium AST ALT Alkaline Phosphatase Troponin I 1.010 H* C-Reactive Protein Total Protein Albumin Urine Appearance Urine Protein Urine Glucose (UA) Urine Blood Urine Bilirubin Ur Leukocyte Esterase Urine RBC Urine WBC Urine WBC Clumps Urine Bacteria Hyaline Casts Urine Mucus Urine Yeast (Budding) Assessment and Plan Assessment: This is a 57 y/o woman with significant cardiac issues who was admitted on 08/19/2023 for right heel wound. Today she had two cardiopulmonary arrest at 4ish am and 6:30am and lasting each about 6 minutes per nurse. It seems the patient was bradycardiac then had asystole then on second had PEA. She weston metzger has elevated troponin, was hypotensive. Cardiopumonary arrest X2 with ROSC. Possible cardiac especially with significant cardiac history. Encephalopathy and appears anoxic encephalopathy due to above. Also has metabolic encephalopathy. Has some brainstem reflex (exam limited because of sedation and paralytic earlier). CT head is unremarkable. Elevated troponin Hypotensive and on Norepinephrine SP intubation and mechanical ventilation. Elevated LFT CKI Hx of ischemic cardiomyopathy Hx of congestive heart failure Hx of severe pulmonary HTN Ongoing DM and recent HBA1c is 12.1 Hx Peripheral neuropathy Hx of HTN Hx of hyperlipidemia Plan: I ordered an urgent EEG. Ordered ammonia level She had CT head which is unremarkable. She is on ASA, Plavix Cardiology is on board I.D. is on board Neprhology is on board Will defer the rest of medical management to primary team and other specialist. Overall condition is very guarded. The plan is discussed with patient's primary team N.P. and nurse. Time with Patient: Greater than 30
[2023-08-23 18:55] LABS: Amphetamine Screen,Urine Not Detected (NotDetected); Barbiturate Screen,Urine Not Detected (NotDetected); Benzodiazepines Screen,Urine Detected (NotDetected); Cocaine Screen,Urine Not Detected (NotDetected); Methadone Screen, Urine Not Detected (NotDetected); Opiate Screen,Urine Detected (NotDetected); Oxycodone Screen, Urine Not Detected (NotDetected); Phencyclidine Screen,Urine Not Detected (NotDetected); Tricyclic Antidepressant,Urine Not Detected (NotDetected); Urn Cannabinoid Scrn Not Detected (NotDetected)
--- NOTE | 2023-08-23 19:04 | CA ---
Transthoracic Echo Report Name: Chelle Lin Age: 57 Gender: F : 1965 Exam Date: 08/23/2023 14:45 Exam Location: [facility] Ht (in): 63 Wt (lb): 154 Ordering Physician: Richard Zayas MD Attending/Referring Phys: Catering Associate Nellie Floyd RDCS Procedure CPT: Indications: Re-evaluate lv function post arrest Cardiac Hx: Technical Quality: Fair Contrast 1: Total Dose (mL): Contrast 2: Total Dose (mL): MEASUREMENTS (Male / Female) Normal Values 2D ECHO LV Diastolic Diameter PLAX 4.5 cm 4.2 - 5.9 / 3.9 - 5.3 cm LV Systolic Diameter PLAX 3.6 cm IVS Diastolic Thickness 1.0 cm 0.6 - 1.0 / 0.6 - 0.9 cm LVPW Diastolic Thickness 1.0 cm 0.6 - 1.0 / 0.6 - 0.9 cm LV Relative Wall Thickness 0.4 RV Internal Dim ED PLAX 2.7 cm LA Systolic Diameter LX 4.0 cm 3.0 - 4.0 / 2.7 - 3.8 cm LV Diastolic Volume MOD BP 84.7 cm??? 67 - 155 / 56 - 104 cm??? LV Systolic Volume MOD BP 51.1 cm??? 22 - 58 / 19 - 49 cm??? LV Ejection Fraction MOD BP 39.7 % >= 55 % LV Cardiac Index MOD BP 1134.6 cm???/min???m??? LV Diastolic Volume MOD 4C 64.6 cm??? LV Systolic Volume MOD 4C 38.7 cm??? LV Ejection Fraction MOD 4C 40.2 % LV Cardiac Index MOD 4C 874.3 cm???/min???m??? LV Diastolic Length 4C 7.5 cm LV Systolic Length 4C 6.5 cm LV Diastolic Volume MOD 2C 103.8 cm??? LV Systolic Volume MOD 2C 62.0 cm??? LV Ejection Fraction MOD 2C 40.2 % LV Cardiac Index MOD 2C 1406.8 cm???/min???m??? LV Diastolic Length 2C 8.1 cm LV Systolic Length 2C 7.2 cm LA Volume 62.6 cm??? 18 - 58 / 22 - 52 cm??? LA Volume Index 35.1 cm???/m??? 16 - 28 cm???/m??? FINDINGS Left Ventricle Left ventricular ejection fraction is estimated at 30-35 %. Moderately reduced global left ventricular systolic function. Mildly increased posterior wall thickness. Mildly increased left ventricular systolic volume. Moderately decreased left ventricular ejection fraction. Right Ventricle Normal right ventricular size and function. Right Atrium Normal right atrial size. Left Atrium Mildly increased left atrial diameter. Mildly increased left atrial volume. Mitral Valve Aortic Valve Tricuspid Valve Pulmonic Valve Pericardium Left pleural effusion. Aorta Normal size aortic root and proximal ascending aorta. CONCLUSIONS Reduced LV systolic function ejection fraction 30 to 35% Previewed by: Dr. Kemal Givens MD (Electronically Signed) Final Date: 23 August 2023 19:03
[2023-08-23] MEDS: SODIUM CHLORIDE 0.9% 1,000 ML IV SCH (20:00)
[2023-08-23 20:37] LABS: African American GFR (CKD) 21 (>60 ml/min/1.73 sqM); Anion Gap 6 mmol/L; Blood Urea Nitrogen 65 mg/dL (7-17); Carbon Dioxide 20 mmol/L (22-30); Chloride 111 mmol/L (98-107); Glucose 69 mg/dL (74-99); Magnesium 2.1 mg/dL (1.6-2.3); Non-African American GFR(CKD) 18 (>60 ml/min/1.73 sqM); Sodium 137 mmol/L (137-145)
[2023-08-23 20:55] LABS: Glucose,Whole Blood 65 mg/dL (70-110)
[2023-08-23] MEDS ORDERED: NITROGLYCERIN OINT 1 INCH/GM PACKET TOPICAL PRN (20:55)
--- NOTE | 2023-08-23 21:03 | P.PN ---
Subjective Progress Note Date: 08/23/23 Principal diagnosis: Reason for follow-up is right heel diabetic foot ulcer Patient is a 57-year-old female with a past medical history significant for diabetes mellitus hypertension hyperlipidemia history of renal insufficiency requiring dialysis currently not on dialysis and the patient also have a chronic nonhealing wound to the right heel area, present to the hospital with increasing shortness of breath and swelling concerning for fluid overload.Patient did have a cardiac arrest around 4 AM 08/23/2023 with the patient went into asystole got resuscitated intubated and transferred to the ICU subsequently have another cardiac arrest with PEA rhythm not resuscitated. On today's evaluation that is 08/23/2023 the patient remains to be afebrile patient is hemodynamically stable not requiring any pressor support patient is currently intubated on the vent FiO2 50% no significant purulent secretions through the ET diarrhea or any other changes reported by the nursing staff. Patient white count is 13.8 creatinine is 2.78 troponin is mildly elevated as well as liver enzymes urine is positive chest x-ray patient confluent airspace disease right greater than left Objective - Vital Signs Vital signs: Vital Signs Temp 97.7 F 08/23/23 01:34 Pulse 59 L 08/23/23 12:07 Resp 16 08/23/23 12:07 BP 155/88 08/23/23 10:00 Pulse Ox 96 08/23/23 11:15 FiO2 50 08/23/23 11:55 Intake & Output 08/22/23 08/23/23 08/23/23 18:59 06:59 18:59 Intake Total 1.398 250.657 Output Total 550 100 90 Balance -550 -98.602 160.657 Weight 69.9 kg 70.2 kg Intake: IV 200 Sodium Chloride 0.9% 1, 150 000 ml @ 50 mls/hr IV . Q20H [facility] Rx#:[id number] cefTRIAXone 1 gm In 50 Sodium Chloride 0.9% 50 ml @ 100 mls/hr IVPB Q12HR [facility] Rx#:[id number] Intake, IV Titration 1.398 50.657 Amount Norepinephrine 4 mg In 34.090 Sodium Chloride 0.9% 250 ml @ 0.03 MCG/KG/MIN 7.99 mls/hr IV .Q24H [facility] Rx#: [id number] propofoL 1,000 mg In 1.398 16.567 Empty Bag 1 bag @ 15 MCG/ KG/MIN 6.291 mls/hr IV . [id number] [facility] Rx#:[id number] Output: Urine 550 100 90 Straight 550 Other: Voiding Method Bedside Commode ABP, PAP, CO, CI - Last Documented Arterial Blood Pressure 107/58 - Exam GENERAL DESCRIPTION: Middle-aged female intubated on the vent RESPIRATORY SYSTEM: Unlabored breathing , decreased breath sounds at bases HEART: S1 S2 regular rate and rhythm , ABDOMEN: Soft , no tenderness EXTREMITIES: Right heel wound is currently dressed - Labs CBC & Chem 7: 08/23/23 08:36 08/23/23 20:05 Labs: Abnormal Lab Results - Last 24 Hours (Table) 08/22/23 08/23/23 08/23/23 Range/Units 20:27 04:50 05:51 WBC (3.8-10.6) k/uL RBC (3.80-5.40) m/uL Hgb (11.4-16.0) gm/dL Hct (34.0-46.0) % MCHC (31.0-37.0) g/dL RDW (11.5-15.5) % Neutrophils # (1.3-7.7) k/uL Lymphocytes # (1.0-4.8) k/uL PT (10.0-12.5) sec INR (<1.2) ABG pH 7.25 L (7.35-7.45) ABG pO2 268 H (83-108) mmHg ABG HCO3 16 L (21-25) mmol/L ABG Total CO2 18 L (19-24) mmol/L ABG O2 Saturation 99.9 H (94-97) % Sodium (137-145) mmol/L Chloride (98-107) mmol/L Carbon Dioxide (22-30) mmol/L BUN (7-17) mg/dL Creatinine (0.52-1.04) mg/dL POC Glucose (mg/dL) 131 H 164 H (70-110) mg/dL Calcium (8.4-10.2) mg/dL AST (14-36) U/L ALT (4-34) U/L Alkaline Phosphatase (38-126) U/L Total Protein (6.3-8.2) g/dL Albumin (3.5-5.0) g/dL Urine Appearance (Clear) Urine Protein (Negative) Urine Glucose (UA) (Negative) Urine Blood (Negative) Urine Bilirubin (Negative) Ur Leukocyte Esterase (Negative) Urine RBC (0-5) /hpf Urine WBC (0-5) /hpf Urine WBC Clumps (None) /hpf Urine Bacteria (None) /hpf Urine Mucus (None) /hpf Urine Yeast (Budding) (None) /hpf 08/23/23 08/23/23 08/23/23 Range/Units 06:15 08:36 08:36 WBC 13.8 H (3.8-10.6) k/uL RBC 3.38 L (3.80-5.40) m/uL Hgb 9.5 L (11.4-16.0) gm/dL Hct 31.0 L (34.0-46.0) % MCHC 30.6 L (31.0-37.0) g/dL RDW 16.8 H (11.5-15.5) % Neutrophils # 12.3 H (1.3-7.7) k/uL Lymphocytes # 0.6 L (1.0-4.8) k/uL PT 12.9 H (10.0-12.5) sec INR 1.2 H (<1.2) ABG pH (7.35-7.45) ABG pO2 (83-108) mmHg ABG HCO3 (21-25) mmol/L ABG Total CO2 (19-24) mmol/L ABG O2 Saturation (94-97) % Sodium (137-145) mmol/L Chloride (98-107) mmol/L Carbon Dioxide (22-30) mmol/L BUN (7-17) mg/dL Creatinine (0.52-1.04) mg/dL POC Glucose (mg/dL) (70-110) mg/dL Calcium (8.4-10.2) mg/dL AST (14-36) U/L ALT (4-34) U/L Alkaline Phosphatase (38-126) U/L Total Protein (6.3-8.2) g/dL Albumin (3.5-5.0) g/dL Urine Appearance Turbid H (Clear) Urine Protein 2+ H (Negative) Urine Glucose (UA) 1+ H (Negative) Urine Blood Moderate H (Negative) Urine Bilirubin 1+ H (Negative) Ur Leukocyte Esterase Large H (Negative) Urine RBC 56 H (0-5) /hpf Urine WBC >182 H (0-5) /hpf Urine WBC Clumps Few H (None) /hpf Urine Bacteria Many H (None) /hpf Urine Mucus Occasional H (None) /hpf Urine Yeast (Budding) Many H (None) /hpf 08/23/23 Range/Units 08:36 WBC (3.8-10.6) k/uL RBC (3.80-5.40) m/uL Hgb (11.4-16.0) gm/dL Hct (34.0-46.0) % MCHC (31.0-37.0) g/dL RDW (11.5-15.5) % Neutrophils # (1.3-7.7) k/uL Lymphocytes # (1.0-4.8) k/uL PT (10.0-12.5) sec INR (<1.2) ABG pH (7.35-7.45) ABG pO2 (83-108) mmHg ABG HCO3 (21-25) mmol/L ABG Total CO2 (19-24) mmol/L ABG O2 Saturation (94-97) % Sodium 135 L (137-145) mmol/L Chloride 111 H (98-107) mmol/L Carbon Dioxide 19 L (22-30) mmol/L BUN 62 H (7-17) mg/dL Creatinine 2.76 H (0.52-1.04) mg/dL POC Glucose (mg/dL) (70-110) mg/dL Calcium 6.9 L (8.4-10.2) mg/dL AST 468 H (14-36) U/L ALT 286 H (4-34) U/L Alkaline Phosphatase 440 H (38-126) U/L Total Protein 4.9 L (6.3-8.2) g/dL Albumin 2.1 L (3.5-5.0) g/dL Urine Appearance (Clear) Urine Protein (Negative) Urine Glucose (UA) (Negative) Urine Blood (Negative) Urine Bilirubin (Negative) Ur Leukocyte Esterase (Negative) Urine RBC (0-5) /hpf Urine WBC (0-5) /hpf Urine WBC Clumps (None) /hpf Urine Bacteria (None) /hpf Urine Mucus (None) /hpf Urine Yeast (Budding) (None) /hpf Microbiology - Last 24 Hours (Table) 08/22/23 10:30 Urine Culture - Preliminary Urine,Voided Gram Neg Bacilli Assessment and Plan (1) Pressure ulcer of right heel, stage 3 Current Visit: No Status: Acute Code(s): L89.613 - PRESSURE ULCER OF RIGHT HEEL, STAGE 3 SNOMED Code(s): 95063862118781 (2) Type 2 diabetes mellitus with foot ulcer Current Visit: No Status: Acute Code(s): E11.621 - TYPE 2 DIABETES MELLITUS WITH FOOT ULCER; L97.509 - NON-PRESSURE CHRONIC ULCER OTH PRT UNSP FOOT W UNSP SEVERITY SNOMED Code(s): 770031468 (3) UTI (urinary tract infection) Current Visit: Yes Status: Acute Code(s): N39.0 - URINARY TRACT INFECTION, SITE NOT SPECIFIED SNOMED Code(s): 11545923 (4) Aspiration pneumonia Current Visit: Yes Status: Acute Code(s): J69.0 - PNEUMONITIS DUE TO INHALATION OF FOOD AND VOMIT SNOMED Code(s): 104999530 Plan: 1patient with chronic nonhealing wound to the right heel area which has been there for a couple of months now patient overall wound base looks clean with no slough tissue in the wound is not pulling out the wound more likely a pressure ulcer stage III with evidence of any secondary cellulitis, local wound care has been switched over to the wound VAC to continue management per wound care 3-patient did have cardiac arrest requiring resuscitation in this patient who did have a chest x-ray with a right-sided infiltrate and question of aspiration pneumonia urine is growing gram-negative we will add Zosyn culture has been obtained and monitor clinical course closely Dictation was produced using [employer] dictation software. please excuse any grammatical, word or spelling errors. Time with Patient: Greater than 30
[2023-08-23] MEDS: DEXTROSE 50% SYRINGE 50 ML IVP PRN (21:17)
[2023-08-23] MEDS: carvediloL 6.25 MG TAB PO STA (21:17)
[2023-08-23 21:41] LABS: Glucose,Whole Blood 103 mg/dL (70-110)
--- NOTE | 2023-08-23 21:49 | OP ---
OPERATIVE REPORT DATE OF SERVICE : PROCEDURE: Removal of dialysis catheter right jugular approach. DESCRIPTION OF PROCEDURE: The patient was seen in the room. Right side of the neck and chest were prepped and drapes applied in a sterile manner. 1% lidocaine was infiltrated. Small incision was made at exit site of the catheter. Catheter was removed. Incision was closed with 3-0 nylon. Dressing applied. Patient tolerated the procedure well. MMCHEY / TRIPPN: [id number] /
[2023-08-23] MEDS: amLODIPine 10 MG TAB PO SCH (21:51)
[2023-08-23] MEDS: INSULIN ASPART (NovoLOG) 100 UNIT/ML VIAL SQ SCH (23:42)
[2023-08-23 23:52] LABS: Glucose,Whole Blood 84 mg/dL (70-110)
--- NOTE | 2023-08-24 00:04 | PN ---
PROGRESS NOTE SUBJECTIVE: This is a 57-year-old lady who I am seeing for the first time in ICU today. She has been in the hospital since 08/19/[address] Givens, my associate, had done a consult on 08/19/2023. Has history of CAD, status post prior angioplasty, cardiomyopathy with recent improvement in her LV function, hypertension, dyslipidemia, diabetes, COPD with severe pulmonary hypertension, chronic renal insufficiency on hemodialysis, who presented to hospital with shortness of breath and leg edema. During her initial evaluation, she was thought to have acute on chronic heart failure. She apparently had her last dialysis about 3 weeks ago, but of late, her renal functions have improved. She was initially treated with IV Lasix and the Lasix dose had been decreased. An echocardiogram on this admission revealed normal LV systolic function with moderate tricuspid regurgitation and severe pulmonary hypertension. The patient had a cardiac arrest yesterday in the early hours of this morning. Based on the monitor strips, she was initially in sinus rhythm with sinus bradycardia and developed asystole, had CPR per ACLS protocol and this lasted for about 6 to 8 minutes, was intubated and was transferred to ICU where she had a second bradycardic event for which she received another CPR. At the time of my evaluation this morning, she remains intubated on vent and there is concern about hypoxic encephalopathy. Her EKG shows sinus rhythm without acute ST is ST-T wave changes and not drawn any troponins on her, will obtain one. Hemoglobin is 9.5, potassium is 4.9, BUN and creatinine elevated at 62 and 2.7. ASSESSMENT: 1. Status post cardiopulmonary arrest. The exact etiology for her profound bradycardia is unclear. 2. History of severe pulmonary hypertension, history of renal failure. PLAN: Continue with the current supportive care. I will repeat an echo to reassess LV function and wall motion, and I will obtain troponin. MMODL / IJN: [id number] /
[2023-08-24 02:06] LABS: Glucose,Whole Blood 86 mg/dL (70-110)
[2023-08-24 05:24] LABS: Glucose,Whole Blood 83 mg/dL (70-110)
[2023-08-24 05:59] LABS: Anisocytosis Slight; Basophils % (A) 0 %; Eosinophils # (A) 0.1 k/uL (0-0.7); Eosinophils % (A) 2 %; HCT 30.1 % (34.0-46.0); HGB 9.6 gm/dL (11.4-16.0); Hypochromasia Slight; Lymphocytes # (A) 0.8 k/uL (1.0-4.8); Lymphocytes % (A) 9 %; MCH 28.7 pg (25.0-35.0); MCHC 32.1 g/dL (31.0-37.0); MCV 89.4 fL (80.0-100.0); Mean Platelet Volume 10.2; Monocytes # (A) 0.4 k/uL (0-1.0); Monocytes % (A) 5 %; Neutrophils # (A) 7.4 k/uL (1.3-7.7); Neutrophils % (A) 82 %; Platelet Count 242 k/uL (150-450); RBC 3.36 m/uL (3.80-5.40); RDW 16.9 % (11.5-15.5)
[2023-08-24 06:16] LABS: ABG Base Excess -5.6 mmol/L; ABG HCO3 20 mmol/L (21-25); ABG Oxygen Saturation 99.2 % (94-97); ABG PCO2 34 mmHg (35-45); ABG PH 7.37 (7.35-7.45); ABG PO2 132 mmHg (83-108); ABG TCO2 21 mmol/L (19-24)
[2023-08-24 06:20] LABS: ALT 235 U/L (4-34); AST 199 U/L (14-36); African American GFR (CKD) 22 (>60 ml/min/1.73 sqM); Alkaline Phosphatase 383 U/L (38-126); Anion Gap 7 mmol/L; Blood Urea Nitrogen 63 mg/dL (7-17); Calcium 6.9 mg/dL (8.4-10.2); Carbon Dioxide 18 mmol/L (22-30); Chloride 113 mmol/L (98-107); Glucose 79 mg/dL (74-99); Magnesium 2.1 mg/dL (1.6-2.3); Non-African American GFR(CKD) 19 (>60 ml/min/1.73 sqM); Potassium 4.7 mmol/L (3.5-5.1); Sodium 138 mmol/L (137-145); Total Bilirubin 0.5 mg/dL (0.2-1.3); Total Protein 4.6 g/dL (6.3-8.2)
--- NOTE | 2023-08-24 06:25 | EEG ---
ELECTROENCEPHALOGRAM REPORT CLINICAL HISTORY: This is a 57-year-old woman who had a cardiopulmonary arrest today who has altered mental status. The video EEG is obtained to evaluate for seizure epileptiform activity. RELEVANT MEDICATIONS: Cisatracurium. EEG TYPE: A routine 21-channel EEG with video using the 10/20 electrode placement system. DESCRIPTION: The patient is intubated on a ventilator. The background consists of tqu-ak-djlyqgsy voltage of 4 to 5 hertz activity and at times it is a 4 to 5 hertz polymorphic polyrhythmic theta activity. At times, it is diffuse nonrhythmic polymorphic delta activity. There is no physiological stage 2 sleep architecture. There is no focal slowing. There is moderate artifact over the left temporal region. Interictal and ictal is none. ACTIVATION PROCEDURE: Photic stimulation did not evoke a posterior driving response. There is no abnormality during the photic stimulation. Hyperventilation is not performed. CLINICAL INTERPRETATION: This is an abnormal routine EEG. The background slowing is suggestive of severe encephalopathy. There is no focal slowing, epileptiform discharge, or seizure on the EEG. Clinical correlation is recommended. MMODL / IJN: [id number] / MTDAnn
--- NOTE | 2023-08-24 09:07 | XR ---
EXAMINATION TYPE: XR chest 1V portable DATE OF EXAM: 08/24/2023 Comparison: 08/23/2023 Clinical History: 57-year-old female Tube placement Findings: ET tube located 7 mm from the sonam. Pullback 2 cm and reassessed at follow-up. NG tube courses belo w the diaphragm. Left CVC tip in the right atrium. Heart borderline enlarged. The present exposure sh ows low lung volumes. Interstitial and hazy opacities bilaterally. Improvement in the previous right upper lobe airspace disease. Left basilar opacity slightly increased. The right-sided hemodialysis ca theter has been removed. Impression: 1. Hypoventilatory exposure. Note that the ET tube tip is 7 mm from the sonam. Pull back 2 cm and re assess at follow-up. 2. Suspect underlying vascular congestion. While the right upper lobe airspace disease have improved, some worsening retrocardiac opacity is noted.
--- NOTE | 2023-08-24 11:40 | P.PN ---
Subjective Progress Note Date: 08/24/23 I am following-up with patient and per nurse she is on low IV Propofol and still intubated but is following some simple commands today. Objective - Vital Signs Vital signs: Vital Signs Temp 97.4 F L 08/24/23 08:00 Pulse 66 08/24/23 11:33 Resp 16 08/24/23 10:45 BP 108/66 08/24/23 10:45 Pulse Ox 98 08/24/23 10:45 FiO2 40 08/24/23 11:18 Intake & Output 08/23/23 08/24/23 08/24/23 18:59 06:59 18:59 Intake Total 650.657 672.268 270 Output Total 410 1360 160 Balance 240.657 -687.732 110 Weight 70.2 kg 74.2 kg Intake: IV 600 350 50 Sodium Chloride 0.9% 1, 550 350 50 000 ml @ 50 mls/hr IV . Q20H [facility] Rx#:[id number] cefTRIAXone 1 gm In 50 Sodium Chloride 0.9% 50 ml @ 100 mls/hr IVPB Q12HR [facility] Rx#:[id number] Intake, IV Titration 50.657 192.268 150 Amount Norepinephrine 4 mg In 34.090 Sodium Chloride 0.9% 250 ml @ 0.03 MCG/KG/MIN 7.99 mls/hr IV .Q24H [facility] Rx#: [id number] Piperacillin-Tazobactam 3 100 .375 gm In Sodium Chloride 0.9% 100 ml @ 25 mls/hr IVPB Q12H [facility] Rx# :[id number] Sodium Chloride 0.9% 1, 150 000 ml @ 50 mls/hr IV . Q20H [facility] Rx#:[id number] propofoL 1,000 mg In 16.567 92.268 Empty Bag 1 bag @ 15 MCG/ KG/MIN 6.291 mls/hr IV . [id number] [facility] Rx#:[id number] Tube Feeding 70 40 Other 60 30 Output: Urine 410 1360 160 Other: Voiding Method Indwelling Catheter Indwelling Catheter Indwelling Catheter ABP, PAP, CO, CI - Last Documented Arterial Blood Pressure 115/47 - Exam General: Lying in bed and does not appear in acute distress. Resp: Intubated on ventilator. Neuro: Limited on IV Propofol 20mcg/kg/min Severely drowsy but opening eyes to voice. Is following few simple commands (squeezing hands bilaterally to command). Pupils are round, equal and reactive to light. Pupils are 5mm bilaterally. Is tracking to right and left. Some of the work-up during this hospital visit consisted of: Is hypotensive. 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 Initial wbc is 9.2K and currently is 13.8K Today troponin is 1.010 and on presentation was normal. AST is 468 and ALT is 286 and on presentation was normal. Creatnine is trending up on this admission. glucose is normal. Repeat U/a appear positive acute UTi. TSH: 2.[address] head is reported as not acute intracranial process. I personally reviewed CT and agree with report. 2D echo: It is reported as increased right vent systolic function. Routine EEG: Is abnormal. The background slowing is suggestive of severe encephalopathy. There is no focal slowing, epileptiform discharges or seizure on the EEG. - Labs CBC & Chem 7: 08/24/23 05:25 08/24/23 05:25 Labs: Abnormal Lab Results - Last 24 Hours (Table) 08/23/23 08/23/23 08/23/23 Range/Units 13:27 13:27 16:00 RBC (3.80-5.40) m/uL Hgb (11.4-16.0) gm/dL Hct (34.0-46.0) % RDW (11.5-15.5) % Lymphocytes # (1.0-4.8) k/uL D-Dimer 16.37 H (<0.60) mg/L FEU ABG pCO2 (35-45) mmHg ABG pO2 (83-108) mmHg ABG HCO3 (21-25) mmol/L ABG O2 Saturation (94-97) % Chloride (98-107) mmol/L Carbon Dioxide (22-30) mmol/L BUN (7-17) mg/dL Creatinine (0.52-1.04) mg/dL Glucose (74-99) mg/dL POC Glucose (mg/dL) (70-110) mg/dL Calcium (8.4-10.2) mg/dL AST (14-36) U/L ALT (4-34) U/L Alkaline Phosphatase (38-126) U/L Troponin I (0.000-0.034) ng/mL C-Reactive Protein 4.6 H (<1.0) mg/dL Total Protein (6.3-8.2) g/dL Albumin (3.5-5.0) g/dL Procalcitonin 1.41 H (0.02-0.09) ng/mL Urine Opiates Screen (NotDetected) U Benzodiazepines Scrn (NotDetected) 08/23/23 08/23/23 08/23/23 Range/Units 17:35 18:32 20:05 RBC (3.80-5.40) m/uL Hgb (11.4-16.0) gm/dL Hct (34.0-46.0) % RDW (11.5-15.5) % Lymphocytes # (1.0-4.8) k/uL D-Dimer (<0.60) mg/L FEU ABG pCO2 (35-45) mmHg ABG pO2 (83-108) mmHg ABG HCO3 (21-25) mmol/L ABG O2 Saturation (94-97) % Chloride 111 H (98-107) mmol/L Carbon Dioxide 20 L (22-30) mmol/L BUN 65 H (7-17) mg/dL Creatinine 2.78 H (0.52-1.04) mg/dL Glucose 69 L (74-99) mg/dL POC Glucose (mg/dL) (70-110) mg/dL Calcium 7.0 L (8.4-10.2) mg/dL AST (14-36) U/L ALT (4-34) U/L Alkaline Phosphatase (38-126) U/L Troponin I 1.010 H* (0.000-0.034) ng/mL C-Reactive Protein (<1.0) mg/dL Total Protein (6.3-8.2) g/dL Albumin (3.5-5.0) g/dL Procalcitonin (0.02-0.09) ng/mL Urine Opiates Screen Detected H (NotDetected) U Benzodiazepines Scrn Detected H (NotDetected) 08/23/23 08/24/23 08/24/23 Range/Units 20:54 02:05 04:33 RBC (3.80-5.40) m/uL Hgb (11.4-16.0) gm/dL Hct (34.0-46.0) % RDW (11.5-15.5) % Lymphocytes # (1.0-4.8) k/uL D-Dimer (<0.60) mg/L FEU ABG pCO2 34 L (35-45) mmHg ABG pO2 132 H (83-108) mmHg ABG HCO3 20 L (21-25) mmol/L ABG O2 Saturation 99.2 H (94-97) % Chloride (98-107) mmol/L Carbon Dioxide (22-30) mmol/L BUN (7-17) mg/dL Creatinine (0.52-1.04) mg/dL Glucose (74-99) mg/dL POC Glucose (mg/dL) 65 L (70-110) mg/dL Calcium (8.4-10.2) mg/dL AST (14-36) U/L ALT (4-34) U/L Alkaline Phosphatase (38-126) U/L Troponin I 0.565 H* (0.000-0.034) ng/mL C-Reactive Protein (<1.0) mg/dL Total Protein (6.3-8.2) g/dL Albumin (3.5-5.0) g/dL Procalcitonin (0.02-0.09) ng/mL Urine Opiates Screen (NotDetected) U Benzodiazepines Scrn (NotDetected) 08/24/23 08/24/23 Range/Units 05:25 05:25 RBC 3.36 L (3.80-5.40) m/uL Hgb 9.6 L (11.4-16.0) gm/dL Hct 30.1 L (34.0-46.0) % RDW 16.9 H (11.5-15.5) % Lymphocytes # 0.8 L (1.0-4.8) k/uL D-Dimer (<0.60) mg/L FEU ABG pCO2 (35-45) mmHg ABG pO2 (83-108) mmHg ABG HCO3 (21-25) mmol/L ABG O2 Saturation (94-97) % Chloride 113 H (98-107) mmol/L Carbon Dioxide 18 L (22-30) mmol/L BUN 63 H (7-17) mg/dL Creatinine 2.65 H (0.52-1.04) mg/dL Glucose (74-99) mg/dL POC Glucose (mg/dL) (70-110) mg/dL Calcium 6.9 L (8.4-10.2) mg/dL AST 199 H (14-36) U/L ALT 235 H (4-34) U/L Alkaline Phosphatase 383 H (38-126) U/L Troponin I (0.000-0.034) ng/mL C-Reactive Protein (<1.0) mg/dL Total Protein 4.6 L (6.3-8.2) g/dL Albumin 2.0 L (3.5-5.0) g/dL Procalcitonin (0.02-0.09) ng/mL Urine Opiates Screen (NotDetected) U Benzodiazepines Scrn (NotDetected) Microbiology - Last 24 Hours (Table) 08/23/23 08:35 Gram Stain - Preliminary Sputum 08/22/23 10:30 Urine Culture - Preliminary Urine,Voided Gram Neg Bacilli Assessment and Plan Assessment: This is a 57 y/o woman with significant cardiac issues who was admitted on 08/19/2023 for right heel wound. Today she had two cardiopulmonary arrest at 4ish am and 6:30am and lasting each about 6 minutes per nurse. It seems the patient was bradycardiac then had asystole then on second had PEA. She currently has elevated troponin, was hypotensive. Cardiopumonary arrest X2 with ROSC. Possible cardiac especially with significant cardiac history. Encephalopathy and appears anoxic encephalopathy due to above. Also has metabolic encephalopathy. Has some brainstem reflex (exam limited because of sedation and paralytic earlier). CT head is unremarkable. EEG is severe encephalopathy but no seizure----today mentation is improving (squeezing hand and opening eyes). Elevated troponin Hypotensive and on Norepinephrine SP intubation and mechanical ventilation. Elevated LFT CKI Hx of ischemic cardiomyopathy Hx of congestive heart failure Hx of severe pulmonary HTN Ongoing DM and recent HBA1c is 12.1 Hx Peripheral neuropathy Hx of HTN Hx of hyperlipidemia Plan: She is on ASA, Plavix Cardiology is on board I.D. is on board Neprhology is on board Will defer the rest of medical management to primary team and other specialist. Overall condition is very guarded. The plan is discussed with ICU nurse. Time with Patient: Less than 30
[2023-08-24 11:50] LABS: Glucose,Whole Blood 95 mg/dL (70-110)
--- NOTE | 2023-08-24 13:30 | P.PN ---
Subjective Progress Note Date: 08/24/23 Principal diagnosis: Respiratory failure. Pulmonary consult dated August 23, 2023. This is a 57-year-old female who was admitted back on August 18, for a right heel wound. Early this morning, the patient had a cardiopulmonary arrest. The patient apparently was initially found to be bradycardic, and then had asystole. She received 3 rounds of epinephrine. She arrived to the intensive care unit this morning at 630, having been intubated on the floor by anesthesia. In the I CU, the patient had an episode of pulseless electrical activity, and asystole, and received 2 rounds of epinephrine, a dose of atropine, and some sodium bicarbonate. I came into the intensive care unit this morning, early, to place a left internal jugular triple-lumen catheter, and a right femoral arterial line. Currently, the patient is on volume assist-control, rate 16, tidal volume 400, FiO2 50%, PEEP of 5. The most recent blood gases show pO2 of 75, pCO2 49, pH is 7.44. Arterial blood gases shortly after intubation showed a pO2 of 268, pCO2 of 38, and a pH of 7.25. The patient is currently on norepinephrine at 1.4 mcg/min, and saline at 50 cc an hour. Current labs include a white count 13.8, hemoglobin 9.5, hematocrit 31, and a platelet count of 257,000. PT was 12.9 with an INR of 1.2. Sodium 135, potassium 4.9, chlorides 111, CO2 19, anion gap 5, BUN 62, creatinine 2.76. The patient's AST is 468. ALT is 286. Albumin is 2.1. Urine, is suspicious for possible infection. Brain CT Today, Shows No Acute Intracranial Process. Chest x-ray shows bilateral patchy airspace d isease, right greater than left. Progress note dated August 24, 2023. The patient is seen today in the intensive care unit, room 255. The patient remains on the mechanical ventilator. Current settings include volume assist- control, rate 16, tidal volume 400, FiO2 50%, PEEP of 5. The tidal volume will be dropped down to 350, and the FiO2 will be dropped down to 40%, current blood gases show pO2 132, pCO2 34, pH is 7.37. The patient continues on 0.9 at 50 cc an hour, propofol at 20 mcg/kg/min, and vital 1.2 at 10 cc an hour, with a goal of 48. The patient is discovered to have gram-negative bacilli in the urine. She continues on Zosyn. White count 9, hemoglobin 9.6, hematocrit 30.1, p latelet count 242,000. Sodium 138, potassium 4.7, chloride 113, CO2 18, BUN 63, and creatinine 2.65. Anion gap is 7. The patient's AST is 199, ALT is 235. Troponin is 0.565. Albumin is 2.0. The gram-negative bacilli in the urine was discovered to be Escherichia coli. Chest x-ray shows an endotracheal tube that is too low in the trachea, and should be pulled back. In addition, there is evidence of underlying vascular congestion, and/or infiltrates. Objective - Vital Signs Vital signs: Vital Signs Temp 97.4 F L 08/24/23 08:00 Pulse 66 08/24/23 13:00 Resp 4 L 08/24/23 13:00 BP 132/65 08/24/23 13:00 Pulse Ox 98 08/24/23 13:00 FiO2 50 08/24/23 12:00 Intake & Output 08/23/23 08/24/23 08/24/23 18:59 06:59 18:59 Intake Total 650.657 672.268 510 Output Total 410 1360 290 Balance 240.657 -687.732 220 Weight 70.2 kg 74.2 kg Intake: IV 600 350 50 Sodium Chloride 0.9% 1, 550 350 50 000 ml @ 50 mls/hr IV . Q20H [facility] Rx#:[id number] cefTRIAXone 1 gm In 50 Sodium Chloride 0.9% 50 ml @ 100 mls/hr IVPB Q12HR [facility] Rx#:[id number] Intake, IV Titration 50.657 192.268 300 Amount Norepinephrine 4 mg In 34.090 Sodium Chloride 0.9% 250 ml @ 0.03 MCG/KG/MIN 7.99 mls/hr IV .Q24H [facility] Rx#: [id number] Piperacillin-Tazobactam 3 100 .375 gm In Sodium Chloride 0.9% 100 ml @ 25 mls/hr IVPB Q12H [facility] Rx# :[id number] Sodium Chloride 0.9% 1, 300 000 ml @ 50 mls/hr IV . Q20H [facility] Rx#:[id number] propofoL 1,000 mg In 16.567 92.268 Empty Bag 1 bag @ 15 MCG/ KG/MIN 6.291 mls/hr IV . [id number] [facility]IE Rx#:[id number] Tube Feeding 70 100 Other 60 60 Output: Urine 410 1360 290 Other: Voiding Method Indwelling Catheter Indwelling Catheter Indwelling Catheter ABP, PAP, CO, CI - Last Documented Arterial Blood Pressure 125/49 - Exam No acute distress, currently with an orally placed endotracheal tube, and sedated. HEENT examination is grossly unremarkable. Neck supple. Full range of motion. No adenopathy thyromegaly or neck vein distention. Cardiovascular examination reveals regular rhythm rate. S1-S2 normal. No S3 or S4. No discernible murmur noted. Heart sounds are distant. Heart rate 66 bpm. Lungs reveal scattered bilateral rhonchi. No wheezes or crackles. Breath sounds equal bilaterally. Saturation is 98 %. Abdomen soft without bowel sounds. Extremities are intact. No cyanosis clubbing or edema. Skin is without rash or lesion. Neurologic examination cannot be assessed at this time. - Labs CBC & Chem 7: 08/24/23 05:25 08/24/23 05:25 Labs: Abnormal Lab Results - Last 24 Hours (Table) 08/23/23 08/23/23 08/23/23 Range/Units 13:27 13:27 16:00 RBC (3.80-5.40) m/uL Hgb (11.4-16.0) gm/dL Hct (34.0-46.0) % RDW (11.5-15.5) % Lymphocytes # (1.0-4.8) k/uL D-Dimer 16.37 H (<0.60) mg/L FEU ABG pCO2 (35-45) mmHg ABG pO2 (83-108) mmHg ABG HCO3 (21-25) mmol/L ABG O2 Saturation (94-97) % Chloride (98-107) mmol/L Carbon Dioxide (22-30) mmol/L BUN (7-17) mg/dL Creatinine (0.52-1.04) mg/dL Glucose (74-99) mg/dL POC Glucose (mg/dL) (70-110) mg/dL Calcium (8.4-10.2) mg/dL AST (14-36) U/L ALT (4-34) U/L Alkaline Phosphatase (38-126) U/L Troponin I (0.000-0.034) ng/mL C-Reactive Protein 4.6 H (<1.0) mg/dL Total Protein (6.3-8.2) g/dL Albumin (3.5-5.0) g/dL Procalcitonin 1.41 H (0.02-0.09) ng/mL Urine Opiates Screen (NotDetected) U Benzodiazepines Scrn (NotDetected) 08/23/23 08/23/23 08/23/23 Range/Units 17:35 18:32 20:05 RBC (3.80-5.40) m/uL Hgb (11.4-16.0) gm/dL Hct (34.0-46.0) % RDW (11.5-15.5) % Lymphocytes # (1.0-4.8) k/uL D-Dimer (<0.60) mg/L FEU ABG pCO2 (35-45) mmHg ABG pO2 (83-108) mmHg ABG HCO3 (21-25) mmol/L ABG O2 Saturation (94-97) % Chloride 111 H (98-107) mmol/L Carbon Dioxide 20 L (22-30) mmol/L BUN 65 H (7-17) mg/dL Creatinine 2.78 H (0.52-1.04) mg/dL Glucose 69 L (74-99) mg/dL POC Glucose (mg/dL) (70-110) mg/dL Calcium 7.0 L (8.4-10.2) mg/dL AST (14-36) U/L ALT (4-34) U/L Alkaline Phosphatase (38-126) U/L Troponin I 1.010 H* (0.000-0.034) ng/mL C-Reactive Protein (<1.0) mg/dL Total Protein (6.3-8.2) g/dL Albumin (3.5-5.0) g/dL Procalcitonin (0.02-0.09) ng/mL Urine Opiates Screen Detected H (NotDetected) U Benzodiazepines Scrn Detected H (NotDetected) 08/23/23 08/24/23 08/24/23 Range/Units 20:54 02:05 04:33 RBC (3.80-5.40) m/uL Hgb (11.4-16.0) gm/dL Hct (34.0-46.0) % RDW (11.5-15.5) % Lymphocytes # (1.0-4.8) k/uL D-Dimer (<0.60) mg/L FEU ABG pCO2 34 L (35-45) mmHg ABG pO2 132 H (83-108) mmHg ABG HCO3 20 L (21-25) mmol/L ABG O2 Saturation 99.2 H (94-97) % Chloride (98-107) mmol/L Carbon Dioxide (22-30) mmol/L BUN (7-17) mg/dL Creatinine (0.52-1.04) mg/dL Glucose (74-99) mg/dL POC Glucose (mg/dL) 65 L (70-110) mg/dL Calcium (8.4-10.2) mg/dL AST (14-36) U/L ALT (4-34) U/L Alkaline Phosphatase (38-126) U/L Troponin I 0.565 H* (0.000-0.034) ng/mL C-Reactive Protein (<1.0) mg/dL Total Protein (6.3-8.2) g/dL Albumin (3.5-5.0) g/dL Procalcitonin (0.02-0.09) ng/mL Urine Opiates Screen (NotDetected) U Benzodiazepines Scrn (NotDetected) 08/24/23 08/24/23 Range/Units 05:25 05:25 RBC 3.36 L (3.80-5.40) m/uL Hgb 9.6 L (11.4-16.0) gm/dL Hct 30.1 L (34.0-46.0) % RDW 16.9 H (11.5-15.5) % Lymphocytes # 0.8 L (1.0-4.8) k/uL D-Dimer (<0.60) mg/L FEU ABG pCO2 (35-45) mmHg ABG pO2 (83-108) mmHg ABG HCO3 (21-25) mmol/L ABG O2 Saturation (94-97) % Chloride 113 H (98-107) mmol/L Carbon Dioxide 18 L (22-30) mmol/L BUN 63 H (7-17) mg/dL Creatinine 2.65 H (0.52-1.04) mg/dL Glucose (74-99) mg/dL POC Glucose (mg/dL) (70-110) mg/dL Calcium 6.9 L (8.4-10.2) mg/dL AST 199 H (14-36) U/L ALT 235 H (4-34) U/L Alkaline Phosphatase 383 H (38-126) U/L Troponin I (0.000-0.034) ng/mL C-Reactive Protein (<1.0) mg/dL Total Protein 4.6 L (6.3-8.2) g/dL Albumin 2.0 L (3.5-5.0) g/dL Procalcitonin (0.02-0.09) ng/mL Urine Opiates Screen (NotDetected) U Benzodiazepines Scrn (NotDetected) Microbiology - Last 24 Hours (Table) 08/22/23 10:30 Urine Culture - Final Urine,Voided Escherichia coli 08/23/23 08:35 Gram Stain - Preliminary Sputum Assessment and Plan Assessment: Cardiopulmonary arrest, x 2, with cardiopulmonary resuscitation, and return of spontaneous circulation. S/P intubation, and mechanical ventilation, secondary to cardiopulmonary arrest, August 23, 2023. Rule out anoxic brain injury. History of congestive heart failure. History of ischemic cardiomyopathy. Stage III chronic kidney disease. Right heel pressure ulcer. Subacute fracture of the medial and lateral malleolus. History of hypertension. History of hyperlipidemia. History of type 2 diabetes mellitus. History of severe pulmonary hypertension. History of COPD. History of peripheral neuropathy. Plan: Plan dated August 23, 2023. The patient is seen in the intensive care unit, room 255. I came in early this morning to place an arterial line, and the internal jugular triple-lumen catheter. The patient had poor IV access. The patient is currently on norepinephrine at 1.4 mcg/min. He is getting saline at 50 cc an [address] A CT scan of the brain, was negative. The patient blood gases show pO2 of 75, pCO2 of 49, pH of 7.44. We will continue to follow make recommendations along the way. The patient's overall prognosis remains very guarded. The patient continues on ceftriaxone, and fluconazole. Prognosis is guarded. Plan dated August 24, 2023. The patient is seen today in room 255. She remains on mechanical ventilator. The urine is showing evidence of Escherichia coli. The patient continues on Zosyn. The patient's EEG shows slowing, consistent with severe encephalopathy. There was no evidence of any seizure activity. Labs, x-rays, and all medications are reviewed. We will continue to follow the patient, make recomm endations along the way. The patient's overall prognosis remains very guarded. Today we make some ventilator changes, including dropping the tidal volume down from 400, down to 350, and the FiO2, being reduced to 40%, for 50%. Time with Patient: Greater than 30
--- NOTE | 2023-08-24 13:50 | P.PN ---
Subjective Progress Note Date: 08/24/23 Patient is seen in follow-up for acute kidney injury. Patient with bradycardia down and went into asystole requiring CPR x2. Discussed with parents at bedside, all questions answered. Vital signs are stable. General: Resting in bed. HEENT: Intubated. LUNGS: No audible rhonchi or wheezes. HEART: Rate and Rhythm are regular. ABDOMEN: No distention. EXTREMITITES: Trace edema. Objective - Vital Signs Vital signs: Vital Signs Temp 97.4 F L 08/24/23 08:00 Pulse 58 L 08/24/23 09:15 Resp 0 L 08/24/23 09:15 BP 115/60 08/24/23 09:15 Pulse Ox 99 08/24/23 09:15 FiO2 50 08/24/23 08:00 Intake & Output 08/23/23 08/24/23 08/24/23 18:59 06:59 18:59 Intake Total 650.657 672.268 210 Output Total 410 1360 120 Balance 240.657 -687.732 90 Weight 70.2 kg 74.2 kg Intake: IV 600 350 50 Sodium Chloride 0.9% 1, 550 350 50 000 ml @ 50 mls/hr IV . Q20H [facility] Rx#:[id number] cefTRIAXone 1 gm In 50 Sodium Chloride 0.9% 50 ml @ 100 mls/hr IVPB Q12HR [facility] Rx#:[id number] Intake, IV Titration 50.657 192.268 100 Amount Norepinephrine 4 mg In 34.090 Sodium Chloride 0.9% 250 ml @ 0.03 MCG/KG/MIN 7.99 mls/hr IV .Q24H [facility] Rx#: [id number] Piperacillin-Tazobactam 3 100 .375 gm In Sodium Chloride 0.9% 100 ml @ 25 mls/hr IVPB Q12H [facility] Rx# :[id number] Sodium Chloride 0.9% 1, 100 000 ml @ 50 mls/hr IV . Q20H [facility] Rx#:[id number] propofoL 1,000 mg In 16.567 92.268 Empty Bag 1 bag @ 15 MCG/ KG/MIN 6.291 mls/hr IV . [id number] [facility] Rx#:[id number] Tube Feeding 70 30 Other 60 30 Output: Urine 410 1360 120 Other: Voiding Method Indwelling Catheter Indwelling Catheter Indwelling Catheter ABP, PAP, CO, CI - Last Documented Arterial Blood Pressure 120/48 - Labs CBC & Chem 7: 08/24/23 05:25 08/24/23 05:25 Labs: Abnormal Lab Results - Last 24 Hours (Table) 08/23/23 08/23/23 08/23/23 Range/Units 13:27 13:27 16:00 RBC (3.80-5.40) m/uL Hgb (11.4-16.0) gm/dL Hct (34.0-46.0) % RDW (11.5-15.5) % Lymphocytes # (1.0-4.8) k/uL D-Dimer 16.37 H (<0.60) mg/L FEU ABG pCO2 (35-45) mmHg ABG pO2 (83-108) mmHg ABG HCO3 (21-25) mmol/L ABG O2 Saturation (94-97) % Chloride (98-107) mmol/L Carbon Dioxide (22-30) mmol/L BUN (7-17) mg/dL Creatinine (0.52-1.04) mg/dL Glucose (74-99) mg/dL POC Glucose (mg/dL) (70-110) mg/dL Calcium (8.4-10.2) mg/dL AST (14-36) U/L ALT (4-34) U/L Alkaline Phosphatase (38-126) U/L Troponin I (0.000-0.034) ng/mL C-Reactive Protein 4.6 H (<1.0) mg/dL Total Protein (6.3-8.2) g/dL Albumin (3.5-5.0) g/dL Procalcitonin 1.41 H (0.02-0.09) ng/mL Urine Opiates Screen (NotDetected) U Benzodiazepines Scrn (NotDetected) 08/23/23 08/23/23 08/23/23 Range/Units 17:35 18:32 20:05 RBC (3.80-5.40) m/uL Hgb (11.4-16.0) gm/dL Hct (34.0-46.0) % RDW (11.5-15.5) % Lymphocytes # (1.0-4.8) k/uL D-Dimer (<0.60) mg/L FEU ABG pCO2 (35-45) mmHg ABG pO2 (83-108) mmHg ABG HCO3 (21-25) mmol/L ABG O2 Saturation (94-97) % Chloride 111 H (98-107) mmol/L Carbon Dioxide 20 L (22-30) mmol/L BUN 65 H (7-17) mg/dL Creatinine 2.78 H (0.52-1.04) mg/dL Glucose 69 L (74-99) mg/dL POC Glucose (mg/dL) (70-110) mg/dL Calcium 7.0 L (8.4-10.2) mg/dL AST (14-36) U/L ALT (4-34) U/L Alkaline Phosphatase (38-126) U/L Troponin I 1.010 H* (0.000-0.034) ng/mL C-Reactive Protein (<1.0) mg/dL Total Protein (6.3-8.2) g/dL Albumin (3.5-5.0) g/dL Procalcitonin (0.02-0.09) ng/mL Urine Opiates Screen Detected H (NotDetected) U Benzodiazepines Scrn Detected H (NotDetected) 08/23/23 08/24/23 08/24/23 Range/Units 20:54 02:05 04:33 RBC (3.80-5.40) m/uL Hgb (11.4-16.0) gm/dL Hct (34.0-46.0) % RDW (11.5-15.5) % Lymphocytes # (1.0-4.8) k/uL D-Dimer (<0.60) mg/L FEU ABG pCO2 34 L (35-45) mmHg ABG pO2 132 H (83-108) mmHg ABG HCO3 20 L (21-25) mmol/L ABG O2 Saturation 99.2 H (94-97) % Chloride (98-107) mmol/L Carbon Dioxide (22-30) mmol/L BUN (7-17) mg/dL Creatinine (0.52-1.04) mg/dL Glucose (74-99) mg/dL POC Glucose (mg/dL) 65 L (70-110) mg/dL Calcium (8.4-10.2) mg/dL AST (14-36) U/L ALT (4-34) U/L Alkaline Phosphatase (38-126) U/L Troponin I 0.565 H* (0.000-0.034) ng/mL C-Reactive Protein (<1.0) mg/dL Total Protein (6.3-8.2) g/dL Albumin (3.5-5.0) g/dL Procalcitonin (0.02-0.09) ng/mL Urine Opiates Screen (NotDetected) U Benzodiazepines Scrn (NotDetected) 08/24/23 08/24/23 Range/Units 05:25 05:25 RBC 3.36 L (3.80-5.40) m/uL Hgb 9.6 L (11.4-16.0) gm/dL Hct 30.1 L (34.0-46.0) % RDW 16.9 H (11.5-15.5) % Lymphocytes # 0.8 L (1.0-4.8) k/uL D-Dimer (<0.60) mg/L FEU ABG pCO2 (35-45) mmHg ABG pO2 (83-108) mmHg ABG HCO3 (21-25) mmol/L ABG O2 Saturation (94-97) % Chloride 113 H (98-107) mmol/L Carbon Dioxide 18 L (22-30) mmol/L BUN 63 H (7-17) mg/dL Creatinine 2.65 H (0.52-1.04) mg/dL Glucose (74-99) mg/dL POC Glucose (mg/dL) (70-110) mg/dL Calcium 6.9 L (8.4-10.2) mg/dL AST 199 H (14-36) U/L ALT 235 H (4-34) U/L Alkaline Phosphatase 383 H (38-126) U/L Troponin I (0.000-0.034) ng/mL C-Reactive Protein (<1.0) mg/dL Total Protein 4.6 L (6.3-8.2) g/dL Albumin 2.0 L (3.5-5.0) g/dL Procalcitonin (0.02-0.09) ng/mL Urine Opiates Screen (NotDetected) U Benzodiazepines Scrn (NotDetected) Microbiology - Last 24 Hours (Table) 08/23/23 08:35 Gram Stain - Preliminary Sputum 08/22/23 10:30 Urine Culture - Preliminary Urine,Voided Gram Neg Bacilli Assessment and Plan Plan: Assessment: 1. Acute kidney injury secondary to ATN secondary to cardiorenal syndrome and cardiac arrest. Creatinine 1.5 admission, stable 2.6 today. Patient was on hemodialysis in the past with last treatment being July 02, 2023. Dialysis catheter was scheduled to be removed but patient still has the permacath. REnal US no hydronephrosis. 2. Volume overload. Improved with diuresis. 3. Acute on chronic diastolic CHF. 4. Diabetes mellitus. 5. Right foot wound. 6. Coronary disease with cardiac stenting. 7. Status post PEA arrest. Plan: Maintain gentle IV hydration. Avoid nephrotoxins. Continue to monitor renal function and urine output. Maintain [place] catheter. Strict I's and O's. Permacath removed yesterday. Catheter tip will be sent for culture. Check blood cultures. No indications for HD at this time, good urine output. Wean FiO2, off vasopressors.
[2023-08-24 17:34] LABS: Glucose,Whole Blood 118 mg/dL (70-110)
[2023-08-24] MEDS: DOPamine DRIP 800 MG in DEXTROSE/WATER 1 250ML.BAG IV SCH (19:05)
--- NOTE | 2023-08-24 20:14 | P.PN ---
Subjective Progress Note Date: 08/24/23 57-year-old female came in with complaints of shortness of breath and orthopnea found to be in congestive heart failure exacerbation patient has congestive heart failure with reduced ejection fraction in the past patient has increasing pedal edema. Patient also has an ulcer in the right foot stage III-IV which appeared to be infected we will consult wound care and infectious disease. Patient was on hemodialysis during last hospitalization her creatinine presently is 1.5 which is significantly improved patient potassium is 5.5, patient is on Entresto and Aldactone Aldactone will be held Entresto will be continued since she is receiving IV Lasix and expecting her potassium to improve if it does not improve or get worse then Entresto need to be discontinued as well. Patient has hypervolemic hyponatremia and hyperglycemia. 08/21/2023 Was evaluated today on the medical floor. Patient was continued on IV Lasix overnight however she was no longer reporting any shortness of breath and her lower extremity edema has improved. She was taken off of the Lasix at this time due to increased creatinine up to 2.31 additionally potassium remains elevated at 5.7. Echocardiogram comes back showing an improved ejection fraction of 60 to 65% because of this and also the hyperkalemia patient will not be continued on entresto. Patient was evaluated by infectious disease who felt like that heel ulcer on the right side was more likely a pressure injury stage III and is recommending local wound care to continue with Aquacel. Patient is reporting significant pain to the right foot and feels like it is fractured. Upon review of the patient's chart she did have a x-ray completed of this 12 days ago ordered by her beverage manager Dr. Mayen. Ankle x-ray did review a mildly displaced acute distal fibular fracture. Repeat x-ray of the foot and ankle completed today does reveal a subacute fractures of the medial and lateral malleolus. The lateral malleolus fracture was seen on the patient's prior exam the medial malleolus fracture may be new in the interval and this would be considered an unstable ankle fracture. There is interval 6 mm displacement of the lateral malleolus. There is a deep soft tissue ulcer at the plantar heel with no clear radiographic findings of a contagious osteomyelitis at this time. Orthooedics was consulted for this. 08/22/2023 Patient evaluated in follow-up today resting in bed. She was taken off of the Lasix remains off at this time. Bladder scan was requested and not done yesterday to rule out urinary retention, creatinine today is increased up to 2.56. Bladder scan was done require urinary straight catheterization of 550 mL taken out. Urinalysis was sent which is significantly abnormal. Patient is also noted to have multiple genital lesions which appear wartlike she admits to not having any routine gynecological screenings for many years. She is not having any vaginal bleeding or discharge. Renal ultrasound has been ordered to rule out any obstructive uropathy. 08/23/2023 Patient is evaluated today in follow-up patient had a cardiac event with cardiac arrest inside channel account manager around 445 AM with initial rhythm slowing asystole patient was started on CPR with ACS protocol patient did receive ROSC after 6 to 8 minutes and was transferred to the intensive care unit. Patient upon arrival to the intensive care unit had another episode of cardiac arrest patient had bradycardia while on pressors in the ICU patient was intubated following the first cardiac arrest and is currently on the mechanical ventilator 50% FiO2. Chest x-ray showing similar interstitial and patchy component airspace disease right greater than left. There is a possible trace left pleural effusion. A brain CT which shows no acute intracranial process. Blood work today shows a white blood cell count of 13.8, hemoglobin 9.5, sodium level of 135, BUN of 62, creatinine of 2.76. AST ALT and alk phosphatase are significantly elevated consistent with a shock liver. TSH 3.310. Urinalysis is abnormal. Her urine culture is showing gram-negative bacilli patient is covered for the urinary tract infection as well as aspiration with IV Zosyn being managed by infectious disease. Patient is currently sedated with propofol and did require vasopressor support with Levophed which has been weaned at this time. Will discontinue the gabapentin patient is continued on aspirin Plavix and statin has been placed on hold. There is concern for possible arrhythmia precipitating the asystole additionally we need to rule out embolism and a D-dimer has been ordered. 08/24/2023 Patient is seen in follow-up today continues in the ICU on mechanical ventilation. FiO2 is 50% although titrating and was just placed at 40% with a PEEP of 5. Chest x-ray today shows that the ET tube is 7 mm from the sonam suggesting a pulled back 2 cm and reassess and also suspected underlying vascular congestion. Neuro is following and per nursing staff patient is following some simple commands and undergoing sedation holidays. Patient noted to have reduced EF of 30 to 35% and cardiology had been following. Will reconsult and appreciate input and recommendations. patient did have dialysis catheter removed and sent for cultures which are pending. Infectious disease following and patient is maintained on antibiotic. D-dimer is elevated above 16 and will attempt to obtain a VQ scan. Review of Systems Unable to complete a review of systems at this time patient is currently intubated and sedated in the intensive care unit. All inpatient medications were reviewed and appropriate changes in these medications as dictated in the interval history and assessment and plan. PHYSICAL EXAMINATION: GENERAL: The patient is sedated, continued on mechanical ventilation FiO2 currently 40% with a PEEP of 5. Well developed, well nourished. Ill-appearing HEENT: Pupils are round and equally reacting to light. EOMI. No scleral icterus. No conjunctival pallor. Normocephalic, atraumatic. No pharyngeal erythema. No thyromegaly. CARDIOVASCULAR: S1 and S2 present. No murmurs, rubs, or gallops. PULMONARY: Chest is clear to auscultation, no wheezing or crackles. ABDOMEN: Soft, nontender, nondistended, normoactive bowel sounds. No palpable organomegaly. MUSCULOSKELETAL: No joint swelling or deformity. EXTREMITIES: No cyanosis, clubbing, bilateral pedal edema NEUROLOGICAL: pupils reactive unable to assess sedated SKIN: Patient has right plantar surface ulcer on the posterior foot stage III-IV with areas of tissue Assessment and plan -Asystole/cardiopulmonary arrest x 2 with CPR/ROSC currently intubated and sedated in the ICU could be due to arrhythmia need to rule out emobolism. D- Dimer is elevated and will obtain VQ scan -D-dimer elevated, rule out PE, VQ scan ordered and pending -Unresponsiveness, neurology following and per nursing staff patient has foll owing commands at times. Brain CT reviewed and EEG ordered by neurology. -Congestive heart failure chronic systolic dysfunction with acute exacerbation: Treated with IV lasix and remains on farxiga. Patient had improved EF of 60-65% and was not started on entresto at this time. Lasix is being held. -Ischemic cardiomyopathy with improved EF. -Chronic kidney disease stage III patient was on hemodialysis due to cardiorenal syndrome and had improved kidney function is no longer a hemodialysis patient. Creatinine worsening. Nephrology following. -Acute kidney injury due to ATN -Abnormal urinalysis showing E. coli -Urinary retention, abdominal/renal ultrasound unremarkable -Hyperkalemia, trending down -Nausea possibly from the elevated creatinine and hyperkalemia continue with antiemetics. -Subacute fracture of the medial and lateral malleolus, orthopedics following -Right heel stage III pressure injury continue local wound care with aquacel ID following. -Genital lesions, will need ruby engineer follow up outpatient for routine screenings -Hypertension -Hyperlipidemia -Type 2 diabetes mellitus uncontrolled hgb a1c 12.1, continue with accuchecks ACHS, sliding scale insulin, and levemir -Severe pulmonary hypertension -COPD without any acute exacerbation -Peripheral neuropathy DVT prophylaxis: Subcutaneous heparin Patient is currently intubated and sedated in the ICU. D-Dimer is elevated above 16 and will order VQ scan as kidney functions remain elevated. Urine culture finalized showing E. coli and maintained on antibiotics, blood cultures and permacath from the right chest wall cultures are currently pending. Procalcitonin is 1.41. Cause of arrest does not appear to be infectious in nature patient has not been febrile, white blood cell count normal on admission. We will check cultures and continue empiric antibiotics at this time. Remain off lasix. Multiple consultations following including nephrology, cardiology, ID, orthopedics, pulmonary oil burner servicer and installer. Neurology following and per nursing staff patient is following some commands. Repeat labs in the AM. prognosis remains guarded. Family has been updated at the bedside today. The impression and plan of care has been dictated by Mouna Rowley, Nurse Practitioner as directed. Dr. Ricardo MD I have performed a history and physical examination and medical decision making of this patient, discussed the same with the dictator, and agree with the dictators assessment and plan as written, documented as a scribe. Based on total visit time, I have performed more than 50% of this visit. Objective - Vital Signs Vital signs: Vital Signs Temp 97.4 F L 08/24/23 08:00 Pulse 58 L 08/24/23 09:15 Resp 0 L 08/24/23 09:15 BP 115/60 08/24/23 09:15 Pulse Ox 99 08/24/23 09:15 FiO2 50 08/24/23 08:00 Intake & Output 08/23/23 08/24/23 08/24/23 18:59 06:59 18:59 Intake Total 650.657 672.268 210 Output Total 410 1360 120 Balance 240.657 -687.732 90 Weight 70.2 kg 74.2 kg Intake: IV 600 350 50 Sodium Chloride 0.9% 1, 550 350 50 000 ml @ 50 mls/hr IV . Q20H [facility] Rx#:[id number] cefTRIAXone 1 gm In 50 Sodium Chloride 0.9% 50 ml @ 100 mls/hr IVPB Q12HR [facility] Rx#:[id number] Intake, IV Titration 50.657 192.268 100 Amount Norepinephrine 4 mg In 34.090 Sodium Chloride 0.9% 250 ml @ 0.03 MCG/KG/MIN 7.99 mls/hr IV .Q24H [facility] Rx#: [id number] Piperacillin-Tazobactam 3 100 .375 gm In Sodium Chloride 0.9% 100 ml @ 25 mls/hr IVPB Q12H [facility] Rx# :[id number] Sodium Chloride 0.9% 1, 100 000 ml @ 50 mls/hr IV . Q20H [facility] Rx#:[id number] propofoL 1,000 mg In 16.567 92.268 Empty Bag 1 bag @ 15 MCG/ KG/MIN 6.291 mls/hr IV . [id number] [facility] Rx#:[id number] Tube Feeding 70 30 Other 60 30 Output: Urine 410 1360 120 Other: Voiding Method Indwelling Catheter Indwelling Catheter Indwelling Catheter ABP, PAP, CO, CI - Last Documented Arterial Blood Pressure 120/48 - Labs CBC & Chem 7: 08/24/23 05:25 08/24/23 05:25 Labs: Abnormal Lab Results - Last 24 Hours (Table) 08/23/23 08/23/23 08/23/23 Range/Units 13:27 13:27 16:00 RBC (3.80-5.40) m/uL Hgb (11.4-16.0) gm/dL Hct (34.0-46.0) % RDW (11.5-15.5) % Lymphocytes # (1.0-4.8) k/uL D-Dimer 16.37 H (<0.60) mg/L FEU ABG pCO2 (35-45) mmHg ABG pO2 (83-108) mmHg ABG HCO3 (21-25) mmol/L ABG O2 Saturation (94-97) % Chloride (98-107) mmol/L Carbon Dioxide (22-30) mmol/L BUN (7-17) mg/dL Creatinine (0.52-1.04) mg/dL Glucose (74-99) mg/dL POC Glucose (mg/dL) (70-110) mg/dL Calcium (8.4-10.2) mg/dL AST (14-36) U/L ALT (4-34) U/L Alkaline Phosphatase (38-126) U/L Troponin I (0.000-0.034) ng/mL C-Reactive Protein 4.6 H (<1.0) mg/dL Total Protein (6.3-8.2) g/dL Albumin (3.5-5.0) g/dL Procalcitonin 1.41 H (0.02-0.09) ng/mL Urine Opiates Screen (NotDetected) U Benzodiazepines Scrn (NotDetected) 08/23/23 08/23/23 08/23/23 Range/Units 17:35 18:32 20:05 RBC (3.80-5.40) m/uL Hgb (11.4-16.0) gm/dL Hct (34.0-46.0) % RDW (11.5-15.5) % Lymphocytes # (1.0-4.8) k/uL D-Dimer (<0.60) mg/L FEU ABG pCO2 (35-45) mmHg ABG pO2 (83-108) mmHg ABG HCO3 (21-25) mmol/L ABG O2 Saturation (94-97) % Chloride 111 H (98-107) mmol/L Carbon Dioxide 20 L (22-30) mmol/L BUN 65 H (7-17) mg/dL Creatinine 2.78 H (0.52-1.04) mg/dL Glucose 69 L (74-99) mg/dL POC Glucose (mg/dL) (70-110) mg/dL Calcium 7.0 L (8.4-10.2) mg/dL AST (14-36) U/L ALT (4-34) U/L Alkaline Phosphatase (38-126) U/L Troponin I 1.010 H* (0.000-0.034) ng/mL C-Reactive Protein (<1.0) mg/dL Total Protein (6.3-8.2) g/dL Albumin (3.5-5.0) g/dL Procalcitonin (0.02-0.09) ng/mL Urine Opiates Screen Detected H (NotDetected) U Benzodiazepines Scrn Detected H (NotDetected) 08/23/23 08/24/23 08/24/23 Range/Units 20:54 02:05 04:33 RBC (3.80-5.40) m/uL Hgb (11.4-16.0) gm/dL Hct (34.0-46.0) % RDW (11.5-15.5) % Lymphocytes # (1.0-4.8) k/uL D-Dimer (<0.60) mg/L FEU ABG pCO2 34 L (35-45) mmHg ABG pO2 132 H (83-108) mmHg ABG HCO3 20 L (21-25) mmol/L ABG O2 Saturation 99.2 H (94-97) % Chloride (98-107) mmol/L Carbon Dioxide (22-30) mmol/L BUN (7-17) mg/dL Creatinine (0.52-1.04) mg/dL Glucose (74-99) mg/dL POC Glucose (mg/dL) 65 L (70-110) mg/dL Calcium (8.4-10.2) mg/dL AST (14-36) U/L ALT (4-34) U/L Alkaline Phosphatase (38-126) U/L Troponin I 0.565 H* (0.000-0.034) ng/mL C-Reactive Protein (<1.0) mg/dL Total Protein (6.3-8.2) g/dL Albumin (3.5-5.0) g/dL Procalcitonin (0.02-0.09) ng/mL Urine Opiates Screen (NotDetected) U Benzodiazepines Scrn (NotDetected) 08/24/23 08/24/23 Range/Units 05:25 05:25 RBC 3.36 L (3.80-5.40) m/uL Hgb 9.6 L (11.4-16.0) gm/dL Hct 30.1 L (34.0-46.0) % RDW 16.9 H (11.5-15.5) % Lymphocytes # 0.8 L (1.0-4.8) k/uL D-Dimer (<0.60) mg/L FEU ABG pCO2 (35-45) mmHg ABG pO2 (83-108) mmHg ABG HCO3 (21-25) mmol/L ABG O2 Saturation (94-97) % Chloride 113 H (98-107) mmol/L Carbon Dioxide 18 L (22-30) mmol/L BUN 63 H (7-17) mg/dL Creatinine 2.65 H (0.52-1.04) mg/dL Glucose (74-99) mg/dL POC Glucose (mg/dL) (70-110) mg/dL Calcium 6.9 L (8.4-10.2) mg/dL AST 199 H (14-36) U/L ALT 235 H (4-34) U/L Alkaline Phosphatase 383 H (38-126) U/L Troponin I (0.000-0.034) ng/mL C-Reactive Protein (<1.0) mg/dL Total Protein 4.6 L (6.3-8.2) g/dL Albumin 2.0 L (3.5-5.0) g/dL Procalcitonin (0.02-0.09) ng/mL Urine Opiates Screen (NotDetected) U Benzodiazepines Scrn (NotDetected) Microbiology - Last 24 Hours (Table) 08/23/23 08:35 Gram Stain - Preliminary Sputum 08/22/23 10:30 Urine Culture - Preliminary Urine,Voided Gram Neg Bacilli
--- NOTE | 2023-08-24 21:35 | P.PN ---
Subjective Progress Note Date: 08/24/23 Principal diagnosis: Reason for follow-up is right heel diabetic foot ulcer Patient is a 57-year-old female with a past medical history significant for diabetes mellitus hypertension hyperlipidemia history of renal insufficiency requiring dialysis currently not on dialysis and the patient also have a chronic nonhealing wound to the right heel area, present to the hospital with increasing shortness of breath and swelling concerning for fluid overload.Patient did have a cardiac arrest around 4 AM 08/23/2023 with the patient went into asystole got resuscitated intubated and transferred to the ICU subsequently have another cardiac arrest with PEA rhythm not resuscitated. On today's evaluation that is 08/24/2023, Patient is afebrile patient is currently on the vent FiO2 is down to 40% no significant purulent secretions through the ET diarrhea or any other changes reported by nursing staff patient is not requiring any pressor support. Patient white count normalized to 9.0 creatinine is 2.65 urine is growing E. coli resistant to Unasyn sputum cultures pending catheter cultures pending Objective - Vital Signs Vital signs: Vital Signs Temp 97.4 F L 08/24/23 08:00 Pulse 58 L 08/24/23 09:15 Resp 0 L 08/24/23 09:15 BP 115/60 08/24/23 09:15 Pulse Ox 99 08/24/23 09:15 FiO2 50 08/24/23 08:00 Intake & Output 08/23/23 08/24/23 08/24/23 18:59 06:59 18:59 Intake Total 650.657 672.268 210 Output Total 410 1360 120 Balance 240.657 -687.732 90 Weight 70.2 kg 74.2 kg Intake: IV 600 350 50 Sodium Chloride 0.9% 1, 550 350 50 000 ml @ 50 mls/hr IV . Q20H [facility] Rx#:[id number] cefTRIAXone 1 gm In 50 Sodium Chloride 0.9% 50 ml @ 100 mls/hr IVPB Q12HR [facility] Rx#:[id number] Intake, IV Titration 50.657 192.268 100 Amount Norepinephrine 4 mg In 34.090 Sodium Chloride 0.9% 250 ml @ 0.03 MCG/KG/MIN 7.99 mls/hr IV .Q24H [facility] Rx#: [id number] Piperacillin-Tazobactam 3 100 .375 gm In Sodium Chloride 0.9% 100 ml @ 25 mls/hr IVPB Q12H [facility] Rx# :[id number] Sodium Chloride 0.9% 1, 100 000 ml @ 50 mls/hr IV . Q20H [facility] Rx#:[id number] propofoL 1,000 mg In 16.567 92.268 Empty Bag 1 bag @ 15 MCG/ KG/MIN 6.291 mls/hr IV . [id number] [facility] Rx#:[id number] Tube Feeding 70 30 Other 60 30 Output: Urine 410 1360 120 Other: Voiding Method Indwelling Catheter Indwelling Catheter Indwelling Catheter ABP, PAP, CO, CI - Last Documented Arterial Blood Pressure 120/48 - Exam GENERAL DESCRIPTION: Middle-aged female intubated on the vent RESPIRATORY SYSTEM: Unlabored breathing , decreased breath sounds at bases HEART: S1 S2 regular rate and rhythm , ABDOMEN: Soft , no tenderness EXTREMITIES: Right heel wound is currently dressed - Labs CBC & Chem 7: 08/24/23 05:25 08/24/23 05:25 Labs: Abnormal Lab Results - Last 24 Hours (Table) 08/23/23 08/23/23 08/23/23 Range/Units 13:27 13:27 16:00 RBC (3.80-5.40) m/uL Hgb (11.4-16.0) gm/dL Hct (34.0-46.0) % RDW (11.5-15.5) % Lymphocytes # (1.0-4.8) k/uL D-Dimer 16.37 H (<0.60) mg/L FEU ABG pCO2 (35-45) mmHg ABG pO2 (83-108) mmHg ABG HCO3 (21-25) mmol/L ABG O2 Saturation (94-97) % Chloride (98-107) mmol/L Carbon Dioxide (22-30) mmol/L BUN (7-17) mg/dL Creatinine (0.52-1.04) mg/dL Glucose (74-99) mg/dL POC Glucose (mg/dL) (70-110) mg/dL Calcium (8.4-10.2) mg/dL AST (14-36) U/L ALT (4-34) U/L Alkaline Phosphatase (38-126) U/L Troponin I (0.000-0.034) ng/mL C-Reactive Protein 4.6 H (<1.0) mg/dL Total Protein (6.3-8.2) g/dL Albumin (3.5-5.0) g/dL Procalcitonin 1.41 H (0.02-0.09) ng/mL Urine Opiates Screen (NotDetected) U Benzodiazepines Scrn (NotDetected) 08/23/23 08/23/23 08/23/23 Range/Units 17:35 18:32 20:05 RBC (3.80-5.40) m/uL Hgb (11.4-16.0) gm/dL Hct (34.0-46.0) % RDW (11.5-15.5) % Lymphocytes # (1.0-4.8) k/uL D-Dimer (<0.60) mg/L FEU ABG pCO2 (35-45) mmHg ABG pO2 (83-108) mmHg ABG HCO3 (21-25) mmol/L ABG O2 Saturation (94-97) % Chloride 111 H (98-107) mmol/L Carbon Dioxide 20 L (22-30) mmol/L BUN 65 H (7-17) mg/dL Creatinine 2.78 H (0.52-1.04) mg/dL Glucose 69 L (74-99) mg/dL POC Glucose (mg/dL) (70-110) mg/dL Calcium 7.0 L (8.4-10.2) mg/dL AST (14-36) U/L ALT (4-34) U/L Alkaline Phosphatase (38-126) U/L Troponin I 1.010 H* (0.000-0.034) ng/mL C-Reactive Protein (<1.0) mg/dL Total Protein (6.3-8.2) g/dL Albumin (3.5-5.0) g/dL Procalcitonin (0.02-0.09) ng/mL Urine Opiates Screen Detected H (NotDetected) U Benzodiazepines Scrn Detected H (NotDetected) 08/23/23 08/24/23 08/24/23 Range/Units 20:54 02:05 04:33 RBC (3.80-5.40) m/uL Hgb (11.4-16.0) gm/dL Hct (34.0-46.0) % RDW (11.5-15.5) % Lymphocytes # (1.0-4.8) k/uL D-Dimer (<0.60) mg/L FEU ABG pCO2 34 L (35-45) mmHg ABG pO2 132 H (83-108) mmHg ABG HCO3 20 L (21-25) mmol/L ABG O2 Saturation 99.2 H (94-97) % Chloride (98-107) mmol/L Carbon Dioxide (22-30) mmol/L BUN (7-17) mg/dL Creatinine (0.52-1.04) mg/dL Glucose (74-99) mg/dL POC Glucose (mg/dL) 65 L (70-110) mg/dL Calcium (8.4-10.2) mg/dL AST (14-36) U/L ALT (4-34) U/L Alkaline Phosphatase (38-126) U/L Troponin I 0.565 H* (0.000-0.034) ng/mL C-Reactive Protein (<1.0) mg/dL Total Protein (6.3-8.2) g/dL Albumin (3.5-5.0) g/dL Procalcitonin (0.02-0.09) ng/mL Urine Opiates Screen (NotDetected) U Benzodiazepines Scrn (NotDetected) 08/24/23 08/24/23 Range/Units 05:25 05:25 RBC 3.36 L (3.80-5.40) m/uL Hgb 9.6 L (11.4-16.0) gm/dL Hct 30.1 L (34.0-46.0) % RDW 16.9 H (11.5-15.5) % Lymphocytes # 0.8 L (1.0-4.8) k/uL D-Dimer (<0.60) mg/L FEU ABG pCO2 (35-45) mmHg ABG pO2 (83-108) mmHg ABG HCO3 (21-25) mmol/L ABG O2 Saturation (94-97) % Chloride 113 H (98-107) mmol/L Carbon Dioxide 18 L (22-30) mmol/L BUN 63 H (7-17) mg/dL Creatinine 2.65 H (0.52-1.04) mg/dL Glucose (74-99) mg/dL POC Glucose (mg/dL) (70-110) mg/dL Calcium 6.9 L (8.4-10.2) mg/dL AST 199 H (14-36) U/L ALT 235 H (4-34) U/L Alkaline Phosphatase 383 H (38-126) U/L Troponin I (0.000-0.034) ng/mL C-Reactive Protein (<1.0) mg/dL Total Protein 4.6 L (6.3-8.2) g/dL Albumin 2.0 L (3.5-5.0) g/dL Procalcitonin (0.02-0.09) ng/mL Urine Opiates Screen (NotDetected) U Benzodiazepines Scrn (NotDetected) Microbiology - Last 24 Hours (Table) 08/23/23 08:35 Gram Stain - Preliminary Sputum 08/22/23 10:30 Urine Culture - Preliminary Urine,Voided Gram Neg Bacilli Assessment and Plan (1) Pressure ulcer of right heel, stage 3 Current Visit: No Status: Acute Code(s): L89.613 - PRESSURE ULCER OF RIGHT HEEL, STAGE 3 SNOMED Code(s): 75350837812043 (2) Type 2 diabetes mellitus with foot ulcer Current Visit: No Status: Acute Code(s): E11.621 - TYPE 2 DIABETES MELLITUS WITH FOOT ULCER; L97.509 - NON-PRESSURE CHRONIC ULCER OTH PRT UNSP FOOT W UNSP SEVERITY SNOMED Code(s): 436371000 (3) UTI (urinary tract infection) Current Visit: Yes Status: Acute Code(s): N39.0 - URINARY TRACT INFECTION, SITE NOT SPECIFIED SNOMED Code(s): 49164887 (4) Aspiration pneumonia Current Visit: Yes Status: Acute Code(s): J69.0 - PNEUMONITIS DUE TO I NHALATION OF FOOD AND VOMIT SNOMED Code(s): 892687315 Plan: 1patient with chronic nonhealing wound to the right heel area which has been there for a couple of months now patient overall wound base looks clean with no slough tissue in the wound is not pulling out the wound more likely a pressure ulcer stage III with evidence of any secondary cellulitis, local wound care has been switched over to the wound VAC to continue management per wound care 3-patient did have cardiac arrest requiring resuscitation in this patient who did have a chest x-ray with a right-sided infiltrate and question of aspiration pneumonia urine culture grew E. coli with some resistant pathogen sputum culture currently pending patient white count is normalized we will keep patient on Zosyn while waiting for the sputum culture to finalize and monitor clinical course closely Dictation was produced using [employer] dictation software. please excuse any grammatical, word or spelling errors. Time with Patient: Less than 30
--- NOTE | 2023-08-24 22:46 | PN ---
PROGRESS NOTE SUBJECTIVE: Chelle is a 57-year-old lady, who is admitted to ICU following the cardiac arrest on the floor. She is intubated and on the ventilator, had sinus bradycardia. The troponin came back elevated yesterday at 1. The second set of troponin was already down to 0.5. This may be related to the cardiopulmonary arrest that the patient had. I repeated an echocardiogram on her yesterday that shows cardiomyopathy with moderate LV systolic dysfunction that is new compared to the echo done earlier on this admission. The patient has severe renal insufficiency with a BUN of 63 and creatinine of 2.6. Hence, she is not a candidate for invasive procedures at this time. She is on aspirin, Plavix, nitro paste, and will resume Lipitor when the renal functions improved. OBJECTIVE: GENERAL: Comfortable at rest, intubated on vent and sedated. VITAL SIGNS: Stable. CHEST: Reveals good air entry bilaterally. HEART: Reveals first and second heart sounds. No gallop. EXTREMITIES: Did not reveal any edema. Peripheral pulses are palpable. ASSESSMENT: 1. Vent requiring respiratory failure. 2. Elevated troponin, probably related to CPR. 3. New onset cardiomyopathy. 4. Acute renal failure. PLAN: We will treat the patient with current medical therapy. When her renal functions improve, she will need evaluation for underlying CAD. MMODL / IJN: [id number] /
[2023-08-25 00:43] LABS: Glucose,Whole Blood 137 mg/dL (70-110)
[2023-08-25 04:43] LABS: Anisocytosis Slight; Basophils # (A) 0.1 k/uL (0-0.2); Basophils % (A) 1 %; Eosinophils # (A) 0.4 k/uL (0-0.7); Eosinophils % (A) 4 %; HCT 32.7 % (34.0-46.0); HGB 10.3 gm/dL (11.4-16.0); Hypochromasia Slight; Lymphocytes # (A) 0.8 k/uL (1.0-4.8); Lymphocytes % (A) 8 %; MCH 28.3 pg (25.0-35.0); MCHC 31.4 g/dL (31.0-37.0); MCV 90.2 fL (80.0-100.0); Monocytes # (A) 0.5 k/uL (0-1.0); Monocytes % (A) 5 %; Neutrophils # (A) 8.5 k/uL (1.3-7.7); Neutrophils % (A) 81 %; Platelet Count 314 k/uL (150-450); RBC 3.63 m/uL (3.80-5.40); WBC 10.5 k/uL (3.8-10.6)
[2023-08-25 04:53] LABS: African American GFR (CKD) 24 (>60 ml/min/1.73 sqM); Anion Gap 9 mmol/L; Blood Urea Nitrogen 57 mg/dL (7-17); Carbon Dioxide 18 mmol/L (22-30); Chloride 113 mmol/L (98-107); Glucose 142 mg/dL (74-99); Magnesium 2.1 mg/dL (1.6-2.3); Non-African American GFR(CKD) 21 (>60 ml/min/1.73 sqM); Potassium 4.8 mmol/L (3.5-5.1); Sodium 140 mmol/L (137-145)
[2023-08-25 05:19] LABS: ABG Base Excess -6.8 mmol/L; ABG HCO3 20 mmol/L (21-25); ABG Oxygen Saturation 97.5 % (94-97); ABG PCO2 39 mmHg (35-45); ABG PH 7.31 (7.35-7.45); ABG PO2 95 mmHg (83-108); ABG TCO2 21 mmol/L (19-24)
[2023-08-25 05:59] LABS: Allen Test Performed? no
[2023-08-25 06:07] LABS: Glucose,Whole Blood 160 mg/dL (70-110)
--- NOTE | 2023-08-25 09:59 | PN ---
PROGRESS NOTE SUBJECTIVE: Ted is a 57-year-old lady, who is status post cardiac arrest, intubated on vent. She had episodes of sinus bradycardia yesterday, which preceded her asystole prior to the cardiac arrest. Hence, I started her on dopamine, and she has remained essentially without any events to last night. OBJECTIVE: VITAL SIGNS: She remains intubated on vent. Heart rate is 77 beats per minute. Blood pressure is 150/72, respiratory rate 18. CHEST: Reveals good air entry bilaterally. HEART: Reveals first and second heart sounds. No gallop. EXTREMITIES: Did not reveal any edema. Peripheral pulses are felt. LABS: Today show a hemoglobin of 10.3, BUN is 57, creatinine is 2.49. ASSESSMENT AND PLAN: 1. Status post cardiorespiratory arrest. 2. Sinus bradycardia. PLAN: I am going to cut back on the dose of dopamine to 2.5 mcg. MMODL / IJN: [id number] /
--- NOTE | 2023-08-25 10:15 | US ---
EXAMINATION TYPE: US venous doppler duplex LE BI DATE OF EXAM: 08/25/2023 9:58 AM COMPARISON: NONE CLINICAL INDICATION: Female, 57 years old with history of Elevated d dimer; elevated D-Dimer SIDE PERFORMED: bilateral TECHNIQUE: The lower extremity deep venous system is examined utilizing real time linear array sonog star with graded compression, doppler sonography and color-flow sonography. VESSELS IMAGED: Common Femoral Vein Deep Femoral Vein Greater Saphenous Vein * Femoral Vein Popliteal Vein Small Saphenous Vein * Proximal Calf Veins (* superficial vessels) Right Leg: no evidence of DVT as visualized. unable to visualize lower femoral vein and proximal pop liteal vein for compression due to large amount of edema and patient position (ICU patient with limit ed mobility). multiple lymph nodes right groin, largest = 2.6cm with preserved lymph node morphology Left Leg: no evidence of DVT as visualized. limitations due to large amount of edema IMPRESSION: * Limited study as described. * No evidence of DVT in either lower extremity, as visualized. * Multiple prominent lymph nodes in the right groin, largest 2.6 cm x 1 cm.
--- NOTE | 2023-08-25 10:30 | P.PN ---
Subjective Progress Note Date: 08/25/23 I am following up with the patient patient continues to be intubated on a ventilator. She is on IV propofol 35mcg/kg/min. Objective - Vital Signs Vital signs: Vital Signs Temp 98.2 F 08/25/23 08:00 Pulse 69 08/25/23 10:00 Resp 16 08/25/23 10:00 BP 125/58 08/25/23 10:00 Pulse Ox 98 08/25/23 10:00 FiO2 40 08/25/23 08:00 Intake & Output 08/24/23 08/25/23 08/25/23 18:59 06:59 18:59 Intake Total 987.647 0766.000 577.162 Output Total 595 965 350 Balance 390.483 195.000 227.162 Weight 75.7 kg Intake: IV 50 510 50 Sodium Chloride 0.9% 1, 50 510 50 000 ml @ 50 mls/hr IV . Q20H RYLIE Rx#:[id number] Intake, IV Titration 645.483 150.000 307.162 Amount DOPamine DRIP 800 mg In 87.646 Dextrose/Water 1 250ml. bag @ 2.5 MCG/KG/MIN 3. 478 mls/hr IV .Q24H RYLIE Rx#:[id number] Sodium Chloride 0.9% 1, 550 50 150 000 ml @ 50 mls/hr IV . Q20H RYLIE Rx#:[id number] propofoL 1,000 mg In 95.483 100.000 69.516 Empty Bag 1 bag @ 15 MCG/ KG/MIN 6.291 mls/hr IV . [id number] RYLIE Rx#:[id number] Tube Feeding 200 410 160 Other 90 90 60 Output: Urine 595 965 350 Other: Voiding Method Indwelling Catheter Indwelling Catheter Indwelling Catheter ABP, PAP, CO, CI - Last Documented Arterial Blood Pressure 156/60 - Exam General: Lying in bed and does not appear in acute distress. Resp: Intubated on ventilator. Neuro: Limited on IV Propofol 35mcg/kg/min Moderately drowsy and opening eyes to voice. Is following few simple commands (squeezing hands bilaterally to command, wiggling toes). Pupils are round, equal and reactive to light. Pupils are 5mm bilaterally. Is tracking to right and left. Is moving hands equally. Is wiggling toes bilaterally. Has cast on the right lower. Some of the work-up during this hospital visit consisted of: Is hypotensive. It seems she is hypotensive as low as 60's/40 today in yeast washer. Initial wbc is 9.2K and currently is 13.8K Today troponin is 1.010 and on presentation was normal. AST is 468 and ALT is 286 and on presentation was normal. Creatnine is trending up on this admission. glucose is normal. Repeat U/a appear positive acute UTi. TSH: 2.[address] head is reported as not acute intracranial process. I personally reviewed CT and agree with report. 2D echo: It is reported as increased right vent systolic function. Routine EEG: Is abnormal. The background slowing is suggestive of severe encephalopathy. There is no focal slowing, epileptiform discharges or seizure on the EEG. - Labs CBC & Chem 7: 08/25/23 04:08/25/23 04:29 Labs: Abnormal Lab Results - Last 24 Hours (Table) 08/24/23 08/25/23 08/25/23 Range/Units 17:33 00:42 04:29 RBC 3.63 L (3.80-5.40) m/uL Hgb 10.3 L (11.4-16.0) gm/dL Hct 32.7 L (34.0-46.0) % RDW 17.0 H (11.5-15.5) % Neutrophils # 8.5 H (1.3-7.7) k/uL Lymphocytes # 0.8 L (1.0-4.8) k/uL ABG pH (7.35-7.45) ABG HCO3 (21-25) mmol/L ABG O2 Saturation (94-97) % Chloride (98-107) mmol/L Carbon Dioxide (22-30) mmol/L BUN (7-17) mg/dL Creatinine (0.52-1.04) mg/dL Glucose (74-99) mg/dL POC Glucose (mg/dL) 118 H 137 H (70-110) mg/dL Calcium (8.4-10.2) mg/dL 08/25/23 08/25/23 08/25/23 Range/Units 04:29 05:17 06:06 RBC (3.80-5.40) m/uL Hgb (11.4-16.0) gm/dL Hct (34.0-46.0) % RDW (11.5-15.5) % Neutrophils # (1.3-7.7) k/uL Lymphocytes # (1.0-4.8) k/uL ABG pH 7.31 L (7.35-7.45) ABG HCO3 20 L (21-25) mmol/L ABG O2 Saturation 97.5 H (94-97) % Chloride 113 H (98-107) mmol/L Carbon Dioxide 18 L (22-30) mmol/L BUN 57 H (7-17) mg/dL Creatinine 2.49 H (0.52-1.04) mg/dL Glucose 142 H (74-99) mg/dL POC Glucose (mg/dL) 160 H (70-110) mg/dL Calcium 7.0 L (8.4-10.2) mg/dL Microbiology - Last 24 Hours (Table) 08/23/23 14:30 Catheter Tip Culture - Preliminary Catheter Tip 08/23/23 01:25 Blood Culture - Preliminary Blood 08/22/23 10:30 Urine Culture - Final Urine,Voided Escherichia coli Assessment and Plan Assessment: This is a 57 y/o woman with significant cardiac issues who was admitted on 08/19/2023 for right heel wound. Today she had two cardiopulmonary arrest at 4ish am and 6:30am and lasting each about 6 minutes per nurse. It seems the p atient was bradycardiac then had asystole then on second had PEA. She currently has elevated troponin, was hypotensive. Cardiopumonary arrest X2 with ROSC. Possible cardiac especially with signif icant cardiac history. Encephalopathy and appears anoxic encephalopathy due to above. Also has meta bolic encephalopathy and underlying UTI. CT head is unremarkable. EEG is severe encephalopathy but no seizure----mentation is improving (following simple commands squeezing hand and opening eyes). Elevated troponin Hypotensive and on Norepinephrine Acute UTI SP intubation and mechanical ventilation. Elevated LFT CKI Hx of ischemic cardiomyopathy Hx of congestive heart failure Hx of severe pulmonary HTN Ongoing DM and recent HBA1c is 12.1 Hx Peripheral neuropathy Hx of HTN Hx of hyperlipidemia Plan: She is on ASA, Plavix Cardiology is on board I.D. is on board Neprhology is on board Will defer the rest of medical management to primary team and other specialists. Overall condition is very guarded. Will follow-up sporadically. Dr. Elmore will resume neurology service tomorrow A.M. Time with Patient: Less than 30
--- NOTE | 2023-08-25 10:47 | P.PN ---
Subjective Progress Note Date: 08/25/23 Patient is seen in follow-up for acute kidney injury. Patient with bradycardia down and went into asystole requiring CPR x2. Good urine output. No events over night. Awake on vent undergoing weaning trial. Vital signs are stable. General: Resting in bed. HEENT: Intubated. LUNGS: No audible rhonchi or wheezes. HEART: Rate and Rhythm are regular. ABDOMEN: No distention. EXTREMITITES: Trace edema. Objective - Vital Signs Vital signs: Vital Signs Temp 98.9 F 08/25/23 04:00 Pulse 70 08/25/23 07:52 Resp 16 08/25/23 07:00 BP 142/64 08/25/23 07:00 Pulse Ox 99 08/25/23 07:00 FiO2 40 08/25/23 08:00 Intake & Output 08/24/23 08/25/23 08/25/23 18:59 06:59 18:59 Intake Total 129.679 6420.000 177.646 Output Total 595 965 125 Balance 390.483 195.000 52.646 Weight 75.7 kg Intake: IV 50 510 50 Sodium Chloride 0.9% 1, 50 510 50 000 ml @ 50 mls/hr IV . Q20H RYLIE Rx#:[id number] Intake, IV Titration 645.483 150.000 87.646 Amount DOPamine DRIP 800 mg In 87.646 Dextrose/Water 1 250ml. bag @ 5 MCG/KG/MIN 6.956 mls/hr IV .Q24H RYLIE Rx#: [id number] Sodium Chloride 0.9% 1, 550 50 000 ml @ 50 mls/hr IV . Q20H RYLIE Rx#:[id number] propofoL 1,000 mg In 95.483 100.000 Empty Bag 1 bag @ 15 MCG/ KG/MIN 6.291 mls/hr IV . [id number] RYLIE Rx#:[id number] Tube Feeding 200 410 40 Other 90 90 Output: Urine 595 965 125 Other: Voiding Method Indwelling Catheter Indwelling Catheter ABP, PAP, CO, CI - Last Documented Arterial Blood Pressure 164/64 - Labs CBC & Chem 7: 08/25/23 04:29 08/25/23 04:29 Labs: Abnormal Lab Results - Last 24 Hours (Table) 08/24/23 08/25/23 08/25/23 Range/Units 17:33 00:42 04:29 RBC 3.63 L (3.80-5.40) m/uL Hgb 10.3 L (11.4-16.0) gm/dL Hct 32.7 L (34.0-46.0) % RDW 17.0 H (11.5-15.5) % Neutrophils # 8.5 H (1.3-7.7) k/uL Lymphocytes # 0.8 L (1.0-4.8) k/uL ABG pH (7.35-7.45) ABG HCO3 (21-25) mmol/L ABG O2 Saturation (94-97) % Chloride (98-107) mmol/L Carbon Dioxide (22-30) mmol/L BUN (7-17) mg/dL Creatinine (0.52-1.04) mg/dL Glucose (74-99) mg/dL POC Glucose (mg/dL) 118 H 137 H (70-110) mg/dL Calcium (8.4-10.2) mg/dL 08/25/23 08/25/23 08/25/23 Range/Units 04:29 05:17 06:06 RBC (3.80-5.40) m/uL Hgb (11.4-16.0) gm/dL Hct (34.0-46.0) % RDW (11.5-15.5) % Neutrophils # (1.3-7.7) k/uL Lymphocytes # (1.0-4.8) k/uL ABG pH 7.31 L (7.35-7.45) ABG HCO3 20 L (21-25) mmol/L ABG O2 Saturation 97.5 H (94-97) % Chloride 113 H (98-107) mmol/L Carbon Dioxide 18 L (22-30) mmol/L BUN 57 H (7-17) mg/dL Creatinine 2.49 H (0.52-1.04) mg/dL Glucose 142 H (74-99) mg/dL POC Glucose (mg/dL) 160 H (70-110) mg/dL Calcium 7.0 L (8.4-10.2) mg/dL Microbiology - Last 24 Hours (Table) 08/23/23 14:30 Catheter Tip Culture - Preliminary Catheter Tip 08/23/23 01:25 Blood Culture - Preliminary Blood 08/22/23 10:30 Urine Culture - Final Urine,Voided Escherichia coli Assessment and Plan Plan: Assessment: 1. Acute kidney injury secondary to ATN secondary to cardiorenal syndrome and cardiac arrest. Creatinine 1.5 admission, stable 2.6 today. Patient was on hemodialysis in the past with last treatment being July 02, 2023. Dialysis catheter was scheduled to be removed but patient still has the permacath. Renal US no hydronephrosis. 2. Volume overload. Improved with diuresis. 3. Acute on chronic diastolic CHF. 4. Diabetes mellitus. 5. Right foot wound. 6. Coronary disease with cardiac stenting. 7. Status post PEA arrest. 8. Septic Shock- gram negative bacilli Plan: Maintain gentle IV hydration. Avoid nephrotoxins. Continue to monitor renal function and urine output. Maintain [place] catheter. Strict I's and O's. Permacath removed. Blood cultures gram negative bacilli No indications for HD at this time, good urine output. Wean FiO2, off vasopressors.
[2023-08-25 11:38] LABS: Glucose,Whole Blood 211 mg/dL (70-110)
--- NOTE | 2023-08-25 11:59 | P.PN ---
Subjective Progress Note Date: 08/25/23 Principal diagnosis: Respiratory failure. Pulmonary consult dated August 23, 2023. This is a 57-year-old female who was admitted back on August 18, for a right heel wound. Early this morning, the patient had a cardiopulmonary arrest. The patient apparently was initially found to be bradycardic, and then had asystole. She received 3 rounds of epinephrine. She arrived to the intensive care unit this morning at 630, having been intubated on the floor by anesthesia. In the I CU, the patient had an episode of pulseless electrical activity, and asystole, and received 2 rounds of epinephrine, a dose of atropine, and some sodium bicarbonate. I came into the intensive care unit this morning, early, to place a left internal jugular triple-lumen catheter, and a right femoral arterial line. Currently, the patient is on volume assist-control, rate 16, tidal volume 400, FiO2 50%, PEEP of 5. The most recent blood gases show pO2 of 75, pCO2 49, pH is 7.44. Arterial blood gases shortly after intubation showed a pO2 of 268, pCO2 of 38, and a pH of 7.25. The patient is currently on norepinephrine at 1.4 mcg/min, and saline at 50 cc an hour. Current labs include a white count 13.8, hemoglobin 9.5, hematocrit 31, and a platelet count of 257,000. PT was 12.9 with an INR of 1.2. Sodium 135, potassium 4.9, chlorides 111, CO2 19, anion gap 5, BUN 62, creatinine 2.76. The patient's AST is 468. ALT is 286. Albumin is 2.1. Urine, is suspicious for possible infection. Brain CT Today, Shows No Acute Intracranial Process. Chest x-ray shows bilateral patchy airspace d isease, right greater than left. Progress note dated August 24, 2023. The patient is seen today in the intensive care unit, room 255. The patient remains on the mechanical ventilator. Current settings include volume assist- control, rate 16, tidal volume 400, FiO2 50%, PEEP of 5. The tidal volume will be dropped down to 350, and the FiO2 will be dropped down to 40%, current blood gases show pO2 132, pCO2 34, pH is 7.37. The patient continues on 0.9 at 50 cc an hour, propofol at 20 mcg/kg/min, and vital 1.2 at 10 cc an hour, with a goal of 48. The patient is discovered to have gram-negative bacilli in the urine. She continues on Zosyn. White count 9, hemoglobin 9.6, hematocrit 30.1, p latelet count 242,000. Sodium 138, potassium 4.7, chloride 113, CO2 18, BUN 63, and creatinine 2.65. Anion gap is 7. The patient's AST is 199, ALT is 235. Troponin is 0.565. Albumin is 2.0. The gram-negative bacilli in the urine was discovered to be Escherichia coli. Chest x-ray shows an endotracheal tube that is too low in the trachea, and should be pulled back. In addition, there is evidence of underlying vascular congestion, and/or infiltrates. Progress note dated August 25, 2023. 57-year-old female seen again in room 255. The patient remains on mechanical ventilator. She is on volume assist-control, rate 16, tidal volume 350, FiO2 40%, PEEP of 5. Blood gases show a pO2 of 95, pCO2 of 39, pH is 7.31. The patient is getting propofol 35 mcg/kg/min, saline at 50 cc an hour, and dopamine at 2.5 mcg/kg/min. The patient continues on Zosyn for Escherichia coli. The patient did develop some bradycardia, overnight, which required her to be on dopamine. We are going to order some Dopplers of the lower extremities. In addition, we will do a daily interruption of sedation, and a spontaneous breathing trial. Count is 10.5, hemoglobin 10.3, hematocrit 32.7, platelet count 314,000. Sodium 140, potassium 4.8, chlorides 113, CO2 18, BUN 57, creatinine 2.49. Glucose is 142. Magnesium is 2.1, calcium is 7.0. The patient's urine specimen from August 21, revealed Escherichia coli. Dopplers of the lower extremities were negative. Chest x-ray shows some patchy bilateral in filtrates, more left-sided than right-sided. Objective - Vital Signs Vital signs: Vital Signs Temp 98.2 F 08/25/23 08:00 Pulse 72 08/25/23 11:22 Resp 22 08/25/23 11:00 BP 134/66 08/25/23 11:00 Pulse Ox 99 08/25/23 11:00 FiO2 40 08/25/23 11:38 Intake & Output 08/24/23 08/25/23 08/25/23 18:59 06:59 18:59 Intake Total 947.020 6548.000 676.980 Output Total 595 965 425 Balance 390.483 195.000 251.980 Weight 75.7 kg Intake: IV 50 510 50 Sodium Chloride 0.9% 1, 50 510 50 000 ml @ 50 mls/hr IV . Q20H [facility]IE Rx#:[id number] Intake, IV Titration 645.483 150.000 358.980 Amount DOPamine DRIP 800 mg In 87.646 Dextrose/Water 1 250ml. bag @ 2.5 MCG/KG/MIN 3. 478 mls/hr IV .Q24H RYLIE Rx#:[id number] Sodium Chloride 0.9% 1, 550 50 200 000 ml @ 50 mls/hr IV . Q20H RYLIE Rx#:[id number] propofoL 1,000 mg In 95.483 100.000 71.334 Empty Bag 1 bag @ 15 MCG/ KG/MIN 6.291 mls/hr IV . [id number] RYLIE Rx#:[id number] Tube Feeding 200 410 208 Other 90 90 60 Output: Urine 595 965 425 Other: Voiding Method Indwelling Catheter Indwelling Catheter Indwelling Catheter ABP, PAP, CO, CI - Last Documented Arterial Blood Pressure 160/62 - Exam No acute distress, currently with an orally placed endotracheal tube, and sedated. HEENT examination is grossly unremarkable. Neck supple. Full range of motion. No adenopathy thyromegaly or neck vein distention. Cardiovascular examination reveals regular rhythm rate. S1-S2 normal. No S3 or S4. No discernible murmur noted. Heart sounds are distant. Heart rate 72 bpm. Lungs reveal scattered bilateral rhonchi. No wheezes or crackles. Breath sounds equal bilaterally. Saturation is 99 %. Abdomen soft without bowel sounds. Extremities are intact. No cyanosis clubbing or edema. Skin is without rash or lesion. Neurologic examination cannot be assessed at this time. - Labs CBC & Chem 7: 08/25/23 04:29 08/25/23 04:29 Labs: Abnormal Lab Results - Last 24 Hours (Table) 08/24/23 08/25/23 08/25/23 Range/Units 17:33 00:42 04:29 RBC 3.63 L (3.80-5.40) m/uL Hgb 10.3 L (11.4-16.0) gm/dL Hct 32.7 L (34.0-46.0) % RDW 17.0 H (11.5-15.5) % Neutrophils # 8.5 H (1.3-7.7) k/uL Lymphocytes # 0.8 L (1.0-4.8) k/uL ABG pH (7.35-7.45) ABG HCO3 (21-25) mmol/L ABG O2 Saturation (94-97) % Chloride (98-107) mmol/L Carbon Dioxide (22-30) mmol/L BUN (7-17) mg/dL Creatinine (0.52-1.04) mg/dL Glucose (74-99) mg/dL POC Glucose (mg/dL) 118 H 137 H (70-110) mg/dL Calcium (8.4-10.2) mg/dL 08/25/23 08/25/23 08/25/23 Range/Units 04:29 05:17 06:06 RBC (3.80-5.40) m/uL Hgb (11.4-16.0) gm/dL Hct (34.0-46.0) % RDW (11.5-15.5) % Neutrophils # (1.3-7.7) k/uL Lymphocytes # (1.0-4.8) k/uL ABG pH 7.31 L (7.35-7.45) ABG HCO3 20 L (21-25) mmol/L ABG O2 Saturation 97.5 H (94-97) % Chloride 113 H (98-107) mmol/L Carbon Dioxide 18 L (22-30) mmol/L BUN 57 H (7-17) mg/dL Creatinine 2.49 H (0.52-1.04) mg/dL Glucose 142 H (74-99) mg/dL POC Glucose (mg/dL) 160 H (70-110) mg/dL Calcium 7.0 L (8.4-10.2) mg/dL 08/25/23 Range/Units 11:36 RBC (3.80-5.40) m/uL Hgb (11.4-16.0) gm/dL Hct (34.0-46.0) % RDW (11.5-15.5) % Neutrophils # (1.3-7.7) k/uL Lymphocytes # (1.0-4.8) k/uL ABG pH (7.35-7.45) ABG HCO3 (21-25) mmol/L ABG O2 Saturation (94-97) % Chloride (98-107) mmol/L Carbon Dioxide (22-30) mmol/L BUN (7-17) mg/dL Creatinine (0.52-1.04) mg/dL Glucose (74-99) mg/dL POC Glucose (mg/dL) 211 H (70-110) mg/dL Calcium (8.4-10.2) mg/dL Microbiology - Last 24 Hours (Table) 08/23/23 08:35 Gram Stain - Final Sputum Sputum Culture - Final 08/23/23 14:30 Catheter Tip Culture - Preliminary Catheter Tip 08/23/23 01:25 Blood Culture - Preliminary Blood 08/22/23 10:30 Urine Culture - Final Urine,Voided Escherichia coli Assessment and Plan Assessment: Cardiopulmonary arrest, x 2, with cardiopulmonary resuscitation, and return of spontaneous circulation. S/P intubation, and mechanical ventilation, secondary to cardiopulmonary arrest, August 23, 2023. Rule out anoxic brain injury. History of congestive heart failure. History of ischemic cardiomyopathy. Stage III chronic kidney disease. Right heel pressure ulcer. Subacute fracture of the medial and lateral malleolus. History of hypertension. History of hyperlipidemia. History of type 2 diabetes mellitus. History of severe pulmonary hypertension. History of COPD. History of peripheral neuropathy. Plan: Plan dated August 23, 2023. The patient is seen in the intensive care unit, room 255. I came in early this morning to place an arterial line, and the internal jugular triple-lumen catheter. The patient had poor IV access. The patient is currently on norepinephrine at 1.4 mcg/min. He is getting saline at [address] A [address] scan of the brain, was negative. The patient blood gases show pO2 of 75, pCO2 of 49, pH of 7.44. We will continue to follow make recommendations along the y. The patient's overall prognosis remains very guarded. The patient continues on ceftriaxone, and fluconazole. Prognosis is guarded. Plan dated August 24, 2023. The patient is seen today in room 255. She remains on mechanical ventilator. The urine is showing evidence of Escherichia coli. The patient continues on Zosyn. The patient's EEG shows slowing, consistent with severe encephalopathy. There was no evidence of any seizure activity. Labs, x-rays, and all medications are reviewed. We will continue to follow the patient, make recommendations along the way. The patient's overall prognosis remains very guarded. Today we make some ventilator changes, including dropping the tidal volume down from 400, down to 350, and the FiO2, being reduced to 40%, for 50%. Plan dated August 25, 2023. The patient is seen today in room 255. She remains on the mechanical ventilator. Today, we will do a daily interruption of sedation, and a spontaneous breathing trial. Dopplers of the lower extremities were negative. She remains on Zosyn for Escherichia coli urinary tract infection. Overnight she developed bradycardia. For that she was started on dopamine by cardiology. The patient is getting saline at 50 cc an hour, propofol at 35 mcg/kg/min. Blood gases are reasonable. Will place the patient on PSV 5, CPAP 5, get some weaning parameters, and see if we can extubate the patient. We will continue to follow. Labs, x-rays, and medications are reviewed. Prognosis is guarded. Time with Patient: Greater than 30
--- NOTE | 2023-08-25 13:43 | P.PN ---
Subjective Progress Note Date: 08/25/23 57-year-old female came in with complaints of shortness of breath and orthopnea found to be in congestive heart failure exacerbation patient has congestive heart failure with reduced ejection fraction in the past patient has increasing pedal edema. Patient also has an ulcer in the right foot stage III-IV which appeared to be infected we will consult wound care and infectious disease. Patient was on hemodialysis during last hospitalization her creatinine presently is 1.5 which is significantly improved patient potassium is 5.5, patient is on Entresto and Aldactone Aldactone will be held Entresto will be continued since she is receiving IV Lasix and expecting her potassium to improve if it does not improve or get worse then Entresto need to be discontinued as well. Patient has hypervolemic hyponatremia and hyperglycemia. 08/21/2023 Was evaluated today on the medical floor. Patient was continued on IV Lasix overnight however she was no longer reporting any shortness of breath and her lower extremity edema has improved. She was taken off of the Lasix at this time due to increased creatinine up to 2.31 additionally potassium remains elevated at 5.7. Echocardiogram comes back showing an improved ejection fraction of 60 to 65% because of this and also the hyperkalemia patient will not be continued on entresto. Patient was evaluated by infectious disease who felt like that heel ulcer on the right side was more likely a pressure injury stage III and is recommending local wound care to continue with Aquacel. Patient is reporting significant pain to the right foot and feels like it is fractured. Upon review of the patient's chart she did have a x-ray completed of this 12 days ago ordered by her director database Dr. Mayen. Ankle x-ray did review a mildly displaced acute distal fibular fracture. Repeat x-ray of the foot and ankle completed today does reveal a subacute fractures of the medial and lateral malleolus. The lateral malleolus fracture was seen on the patient's prior exam the medial malleolus fracture may be new in the interval and this would be considered an unstable ankle fracture. There is interval 6 mm displacement of the lateral malleolus. There is a deep soft tissue ulcer at the plantar heel with no clear radiographic findings of a contagious osteomyelitis at this time. Orthooedics was consulted for this. 08/22/2023 Patient evaluated in follow-up today resting in bed. She was taken off of the Lasix remains off at this time. Bladder scan was requested and not done yesterday to rule out urinary retention, creatinine today is increased up to 2.56. Bladder scan was done require urinary straight catheterization of 550 mL taken out. Urinalysis was sent which is significantly abnormal. Patient is also noted to have multiple genital lesions which appear wartlike she admits to not having any routine gynecological screenings for many years. She is not having any vaginal bleeding or discharge. Renal ultrasound has been ordered to rule out any obstructive uropathy. 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 Patient upon arrival to the intensive care unit had another episode of cardiac arrest patient had bradycardia while on pressors in the ICU patient was intubated following the first cardiac arrest and is currently on the mechanical ventilator 50% FiO2. Chest x-ray showing similar interstitial and patchy component airspace disease right greater than left. There is a possible trace left pleural effusion. A brain CT which shows no acute intracranial process. Blood work today shows a white blood cell count of 13.8, hemoglobin 9.5, sodium level of 135, BUN of 62, creatinine of 2.76. AST ALT and alk phosphatase are significantly elevated consistent with a shock liver. TSH 3.310. Urinalysis is abnormal. Her urine culture is showing gram-negative bacilli patient is covered for the urinary tract infection as well as aspiration with IV Zosyn being managed by infectious disease. Patient is currently sedated with propofol and did require vasopressor support with Levophed which has been weaned at this time. Will discontinue the gabapentin patient is continued on aspirin Plavix and statin has been placed on hold. There is concern for possible arrhythmia precipitating the asystole additionally we need to rule out embolism and a D-dimer has been ordered. 08/24/2023 Patient is seen in follow-up today continues in the ICU on mechanical ventilation. FiO2 is 50% although titrating and was just placed at 40% with a PEEP of 5. Chest x-ray today shows that the ET tube is 7 mm from the sonam suggesting a pulled back 2 cm and reassess and also suspected underlying vascular congestion. Neuro is following and per nursing staff patient is following some simple commands and undergoing sedation holidays. Patient noted to have reduced EF of 30 to 35% and cardiology had been following. Will reconsult and appreciate input and recommendations. patient did have dialysis catheter removed and sent for cultures which are pending. Infectious disease following and patient is maintained on antibiotic. D-dimer is elevated above 16 and will attempt to obtain a VQ scan.57-year-old female came in with complaints of shortness of breath and orthopnea found to be in congestive heart failure exacerbation patient has congestive heart failure with reduced ejection fraction in the past patient has increasing pedal edema. Patient also has an ulcer in the right foot stage III-IV which appeared to be infected we will consult wound care and infectious disease. Patient was on hemodialysis during last hospitalization her creatinine presently is 1.5 which is significantly improved patient potassium is 5.5, patient is on Entresto and Aldactone Aldactone will be held Entresto will be continued since she is receiving IV Lasix and expecting her potassium to improve if it does not improve or get worse then Entresto need to be discontinued as well. Patient has hypervolemic hyponatremia and hyperglycemia. 08/21/2023 Was evaluated today on the medical floor. Patient was continued on IV Lasix overnight however she was no longer reporting any shortness of breath and her lower extremity edema has improved. She was taken off of the Lasix at this time due to increased creatinine up to 2.31 additionally potassium remains elevated at 5.7. Echocardiogram comes back showing an improved ejection fraction of 60 to 65% because of this and also the hyperkalemia patient will not be continued on entresto. Patient was evaluated by infectious disease who felt like that heel ulcer on the right side was more likely a pressure injury stage III and is recommending local wound care to continue with Aquacel. Patient is reporting significant pain to the right foot and feels like it is fractured. Upon review of the patient's chart she did have a x-ray completed of this 12 days ago ordered by her director database Dr. Mayen. Ankle x-ray did review a mildly displaced acute distal fibular fracture. Repeat x-ray of the foot and ankle completed today does reveal a subacute fractures of the medial and lateral malleolus. The lateral malleolus fracture was seen on the patient's prior exam the medial malleolus fracture may be new in the interval and this would be considered an unstable ankle fracture. There is interval 6 mm displacement of the lateral malleolus. There is a deep soft tissue ulcer at the plantar heel with no clear radiographic findings of a contagious osteomyelitis at this time. Orthooedics was consulted for this. 08/22/2023 Patient evaluated in follow-up today resting in bed. She was taken off of the Lasix remains off at this time. Bladder scan was requested and not done yesterday to rule out urinary retention, creatinine today is increased up to 2.56. Bladder scan was done require urinary straight catheterization of 550 mL taken out. Urinalysis was sent which is significantly abnormal. Patient is also noted to have multiple genital lesions which appear wartlike she admits to not having any routine gynecological screenings for many years. She is not having any vaginal bleeding or discharge. Renal ultrasound has been ordered to rule out any obstructive uropathy. 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 Patient upon arrival to the intensive care unit had another episode of cardiac arrest patient had bradycardia while on pressors in the ICU patient was intubated following the first cardiac arrest and is currently on the mechanical ventilator 50% FiO2. Chest x-ray showing similar interstitial and patchy component airspace disease right greater than left. There is a possible trace left pleural effusion. A brain CT which shows no acute intracranial process. Blood work today shows a white blood cell count of 13.8, hemoglobin 9.5, sodium level of 135, BUN of 62, creatinine of 2.76. AST ALT and alk phosphatase are significantly elevated consistent with a shock liver. TSH 3.310. Urinalysis is abnormal. Her urine culture is showing gram-negative bacilli patient is covered for the urinary tract infection as well as aspiration with IV Zosyn being managed by infectious disease. Patient is currently sedated with propofol and did require vasopressor support with Levophed which has been weaned at this time. Will discontinue the gabapentin patient is continued on aspirin Plavix and statin has been placed on hold. There is concern for possible arrhythmia precipitating the asystole additionally we need to rule out embolism and a D-dimer has been ordered. 08/24/2023 Patient is seen in follow-up today continues in the ICU on mechanical ventilat ion. FiO2 is 50% although titrating and was just placed at 40% with a PEEP of 5. Chest x-ray today shows that the ET tube is 7 mm from the sonam suggesting a pulled back 2 cm and reassess and also suspected underlying vascular congestion. Neuro is following and per nursing staff patient is following some simple commands and undergoing sedation holidays. Patient noted to have reduced EF of 30 to 35% and cardiology had been following. Will reconsult and appreciate input and recommendations. patient did have dialysis catheter removed and sent for cultures which are pending. Infectious disease following and patient is maintained on antibiotic. D-dimer is elevated above 16 and will attempt to obtain a VQ scan. 08/25/23 : Patient seen and evaluated at bedside, patient extubated around noon, transition to 5 L of oxygen to nasal cannula. Family at bedside, blood work reviewed hemoglobin 10.3, serum chemistry reviewed sodium 140 potassium 4.8 BUN 57 creatinine 2.49 calcium of 7. PHYSICAL EXAMINATION: GENERAL: The patient is alert to person and situation, just extubated HEENT: Pupils are round and equally reacting to light. EOMI. No scleral icterus. No conjunctival pallor. Normocephalic, atraumatic. No pharyngeal erythema. No thyromegaly. CARDIOVASCULAR: S1 and S2 present. No murmurs, rubs, or gallops. PULMONARY: Chest is clear to auscultation, no wheezing or crackles. ABDOMEN: Soft, nontender, nondistended, normoactive bowel sounds. No palpable organomegaly. MUSCULOSKELETAL: No joint swelling or deformity. EXTREMITIES: No cyanosis, clubbing, bilateral pedal edema NEUROLOGICAL: pupils reactive unable to assess sedated SKIN: Patient has right plantar surface ulcer on the posterior foot stage III-IV with areas of tissue Assessment and plan -Asystole/cardiopulmonary arrest x 2 with CPR/ROSC currently intubated and sedated in the ICU could be due to arrhythmia need to rule out emobolism. D- Dimer is elevated and will obtain VQ scan -D-dimer elevated, rule out PE, VQ scan ordered and pending -Unresponsiveness, neurology following and per nursing staff patient has following commands at times. Brain CT reviewed and EEG ordered by neurology. -Congestive heart failure chronic systolic dysfunction with acute exacerbation: Treated with IV lasix and remains on farxiga. Patient had improved EF of 60-65% and was not started on entresto at this time. Lasix is being held. -Ischemic cardiomyopathy with improved EF. -Chronic kidney disease stage III patient was on hemodialysis due to cardiorenal syndrome and had improved kidney function is no longer a hemodialysis patient. Creatinine worsening. Nephrology following. -Acute kidney injury due to ATN -Abnormal urinalysis showing E. coli -Urinary retention, abdominal/renal ultrasound unremarkable -Hyperkalemia, trending down -Nausea possibly from the elevated creatinine and hyperkalemia continue with antiemetics. -Subacute fracture of the medial and lateral malleolus, orthopedics following -Right heel stage III pressure injury continue local wound care with aquacel ID following. 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 coli. Patient treated with IV antibiotic received IV Zosyn * In regards to aspiration pneumonia,, continue patient on IV Zosyn managed by infectious disease * In regards to cardiomyopathy continue pressor support, continue current medications including aspirin, Plavix, * In regards to suspicion for pulm embolism venous ultrasound lower extremity ordered no evidence of DVT noted , VQ scan ordered * In regards to diabetes mellitus continue patient on Accu-Cheks, continue correctional insulin Objective - Vital Signs Vital signs: Vital Signs Temp 98.2 F 08/25/23 08:00 Pulse 68 08/25/23 09:00 Resp 16 08/25/23 09:00 BP 128/56 08/25/23 09:00 Pulse Ox 99 08/25/23 09:00 FiO2 40 08/25/23 08:00 Intake & Output 08/24/23 08/25/23 08/25/23 18:59 06:59 18:59 Intake Total 567.066 7827.000 417.646 Output Total 595 965 250 Balance 390.483 195.000 167.646 Weight 75.7 kg Intake: IV 50 510 50 Sodium Chloride 0.9% 1, 50 510 50 000 ml @ 50 mls/hr IV . Q20H RYLIE Rx#:[id number] Intake, IV Titration 645.483 150.000 187.646 Amount DOPamine DRIP 800 mg In 87.646 Dextrose/Water 1 250ml. bag @ 2.5 MCG/KG/MIN 3. 478 mls/hr IV .Q24H RYLIE Rx#:[id number] Sodium Chloride 0.9% 1, 550 50 100 000 ml @ 50 mls/hr IV . Q20H RYLIE Rx#:[id number] propofoL 1,000 mg In 95.483 100.000 Empty Bag 1 bag @ 15 MCG/ KG/MIN 6.291 mls/hr IV . [id number] RYLIE Rx#:[id number] Tube Feeding 200 410 120 Other 90 90 60 Output: Urine 595 965 250 Other: Voiding Method Indwelling Catheter Indwelling Catheter Indwelling Catheter ABP, PAP, CO, CI - Last Documented Arterial Blood Pressure 145/57 - Labs CBC & Chem 7: 08/25/23 04:29 08/25/23 04:29 Labs: Abnormal Lab Results - Last 24 Hours (Table) 08/24/23 08/25/23 08/25/23 Range/Units 17:33 00:42 04:29 RBC 3.63 L (3.80-5.40) m/uL Hgb 10.3 L (11.4-16.0) gm/dL Hct 32.7 L (34.0-46.0) % RDW 17.0 H (11.5-15.5) % Neutrophils # 8.5 H (1.3-7.7) k/uL Lymphocytes # 0.8 L (1.0-4.8) k/uL ABG pH (7.35-7.45) ABG HCO3 (21-25) mmol/L ABG O2 Saturation (94-97) % Chloride (98-107) mmol/L Carbon Dioxide (22-30) mmol/L BUN (7-17) mg/dL Creatinine (0.52-1.04) mg/dL Glucose (74-99) mg/dL POC Glucose (mg/dL) 118 H 137 H (70-110) mg/dL Calcium (8.4-10.2) mg/dL 08/25/23 08/25/23 08/25/23 Range/Units 04:29 05:17 06:06 RBC (3.80-5.40) m/uL Hgb (11.4-16.0) gm/dL Hct (34.0-46.0) % RDW (11.5-15.5) % Neutrophils # (1.3-7.7) k/uL Lymphocytes # (1.0-4.8) k/uL ABG pH 7.31 L (7.35-7.45) ABG HCO3 20 L (21-25) mmol/L ABG O2 Saturation 97.5 H (94-97) % Chloride 113 H (98-107) mmol/L Carbon Dioxide 18 L (22-30) mmol/L BUN 57 H (7-17) mg/dL Creatinine 2.49 H (0.52-1.04) mg/dL Glucose 142 H (74-99) mg/dL POC Glucose (mg/dL) 160 H (70-110) mg/dL Calcium 7.0 L (8.4-10.2) mg/dL Microbiology - Last 24 Hours (Table) 08/23/23 14:30 Catheter Tip Culture - Preliminary Catheter Tip 08/23/23 01:25 Blood Culture - Preliminary Blood 08/22/23 10:30 Urine Culture - Final Urine,Voided Escherichia coli
--- NOTE | 2023-08-25 14:07 | P.PN ---
Subjective Progress Note Date: 08/25/23 Principal diagnosis: Right heel wound; right ankle bimalleolar fracture Patient was seen at bedside this morning in the ICU after being extubated recently. Family/friends were present during encounter. Patient seemed to be very groggy during the encounter. Splint present over right lower extremity. Patient denies any orthopedic complaints at this time. Objective - Vital Signs Vital signs: Vital Signs Temp 98.2 F 08/25/23 08:00 Pulse 72 08/25/23 11:22 Resp 22 08/25/23 11:00 BP 134/66 08/25/23 11:00 Pulse Ox 99 08/25/23 11:00 FiO2 40 08/25/23 11:38 Intake & Output 08/24/23 08/25/23 08/25/23 18:59 06:59 18:59 Intake Total 519.688 2842.000 676.980 Output Total 595 965 425 Balance 390.483 195.000 251.980 Weight 75.7 kg Intake: IV 50 510 50 Sodium Chloride 0.9% 1, 50 510 50 000 ml @ 50 mls/hr IV . Q20H RYLIE Rx#:[id number] Intake, IV Titration 645.483 150.000 358.980 Amount DOPamine DRIP 800 mg In 87.646 Dextrose/Water 1 250ml. bag @ 2.5 MCG/KG/MIN 3. 478 mls/hr IV .Q24H RYLIE Rx#:[id number] Sodium Chloride 0.9% 1, 550 50 200 000 ml @ 50 mls/hr IV . Q20H RYLIE Rx#:[id number] propofoL 1,000 mg In 95.483 100.000 71.334 Empty Bag 1 bag @ 15 MCG/ KG/MIN 6.291 mls/hr IV . [id number] RYLIE Rx#:[id number] Tube Feeding 200 410 208 Other 90 90 60 Output: Urine 595 965 425 Other: Voiding Method Indwelling Catheter Indwelling Catheter Indwelling Catheter ABP, PAP, CO, CI - Last Documented Arterial Blood Pressure 160/62 - Exam Posterior short leg splint present over the right lower extremity. Tam dressing is intact. Patient is able to wiggle digits of right foot. Toes are lukewarm to the touch. Radial pulse intact bilaterally. Cap refill under 3 seconds in digits of upper extremities. - Labs CBC & Chem 7: 08/25/23 04:29 08/26/23 08:00 Labs: Abnormal Lab Results - Last 24 Hours (Table) 08/24/23 08/25/23 08/25/23 Range/Units 17:33 00:42 04:29 RBC 3.63 L (3.80-5.40) m/uL Hgb 10.3 L (11.4-16.0) gm/dL Hct 32.7 L (34.0-46.0) % RDW 17.0 H (11.5-15.5) % Neutrophils # 8.5 H (1.3-7.7) k/uL Lymphocytes # 0.8 L (1.0-4.8) k/uL ABG pH (7.35-7.45) ABG HCO3 (21-25) mmol/L ABG O2 Saturation (94-97) % Chloride (98-107) mmol/L Carbon Dioxide (22-30) mmol/L BUN (7-17) mg/dL Creatinine (0.52-1.04) mg/dL Glucose (74-99) mg/dL POC Glucose (mg/dL) 118 H 137 H (70-110) mg/dL Calcium (8.4-10.2) mg/dL 08/25/23 08/25/23 08/25/23 Range/Units 04:29 05:17 06:06 RBC (3.80-5.40) m/uL Hgb (11.4-16.0) gm/dL Hct (34.0-46.0) % RDW (11.5-15.5) % Neutrophils # (1.3-7.7) k/uL Lymphocytes # (1.0-4.8) k/uL ABG pH 7.31 L (7.35-7.45) ABG HCO3 20 L (21-25) mmol/L ABG O2 Saturation 97.5 H (94-97) % Chloride 113 H (98-107) mmol/L Carbon Dioxide 18 L (22-30) mmol/L BUN 57 H (7-17) mg/dL Creatinine 2.49 H (0.52-1.04) mg/dL Glucose 142 H (74-99) mg/dL POC Glucose (mg/dL) 160 H (70-110) mg/dL Calcium 7.0 L (8.4-10.2) mg/dL 08/25/23 Range/Units 11:36 RBC (3.80-5.40) m/uL Hgb (11.4-16.0) gm/dL Hct (34.0-46.0) % RDW (11.5-15.5) % Neutrophils # (1.3-7.7) k/uL Lymphocytes # (1.0-4.8) k/uL ABG pH (7.35-7.45) ABG HCO3 (21-25) mmol/L ABG O2 Saturation (94-97) % Chloride (98-107) mmol/L Carbon Dioxide (22-30) mmol/L BUN (7-17) mg/dL Creatinine (0.52-1.04) mg/dL Glucose (74-99) mg/dL POC Glucose (mg/dL) 211 H (70-110) mg/dL Calcium (8.4-10.2) mg/dL Microbiology - Last 24 Hours (Table) 08/23/23 08:35 Gram Stain - Final Sputum Sputum Culture - Final 08/23/23 14:30 Catheter Tip Culture - Preliminary Catheter Tip 08/23/23 01:25 Blood Culture - Preliminary Blood 08/22/23 10:30 Urine Culture - Final Urine,Voided Escherichia coli Assessment and Plan Assessment: 1. Fracture, subacute, right ankle medial and lateral malleoli 2. Ulcer, right heel 3. Multiple medical comorbidities Plan: 1. Fracture, subacute, right ankle medial and lateral malleoli; Ulcer, right heel - wound vac present over right heel. xrays right ankle reveal bimalleolar fracture with mortise disruption. I did discuss the findings the imaging and exam with my attending, Dr. Kent. At this time we are recommending patient be nonweightbearing to the right lower extremity. posteiror short leg splint pr esent to the right lower extremity. We are not recommending any emergent/urgent orthopedic surgical intervention at this time. Once patient is stable medically, patient likely needs surgical intervention for her ankle in the form of a potential fusion vs ORIF, this would have to be done by a foot an ankle specialist. Patient to remain nonweightbearing to the right lower extremity. we will continue to follow patient during stay in hospital. 2. Appreciate medical, cardiology, wound care management 3. Pain management - gabapentin; [place]; Tylenol 4. DVT prophylaxis - aspirin; Plavix; heparin 5. GI prophylaxis recs 6. PT/OT - nonweightbearing right lower extremity. Weight-bear as tolerated left lower extremity with walker and assistance as needed 7. Encourage incentive spirometer use Time with Patient: Less than 30
[2023-08-25] MEDS: HYDROmorphone 0.5 MG/0.5 ML SYRINGE IVP PRN (14:18)
--- NOTE | 2023-08-25 15:13 | XR ---
EXAM: XR chest 1V portable CLINICAL INDICATION:Female, 57 years old with history of Tube placement; [facility] COMPARISON: 08/24/2023 and before TECHNIQUE: Chest single view. FINDINGS: ET tube tip is less than 1 cm above the sonam. NG tube courses below the diaphragm extending into th e left abdomen with the tip beyond the field of view but at least into the mid stomach. Left IJ central venous line with tip over the right atrium. EKG leads and extrinsic structures including breathing apparatus, and annular tears interpretation. Stable cardiomediastinal silhouette. Heart appears enlarged. Atherosclerotic calcifications of the ao rta. Mild central vascular congestion. Right lung appears relatively stable. There is increasing left basi lar pleural/parenchymal opacity with obscuration of the costophrenic angle. No visualized pneumothora x. Osseous structures are grossly unchanged. No evidence of acute pathology. IMPRESSION: 1. ET tube remains low-lying, less than 1 cm above the sonam. Recommend retraction of at least 2.5 cm. 2. Lung volumes are diminished, with crowding of lung markings and minor bibasilar opacities likely on the basis of atelectasis. 3. Worsening left basilar pleural/parenchymal opacity, likely pleural effusion with adjacent atelect asis/airspace disease. 4. Cardiomegaly with central congestive changes, similar in appearance to the prior study.
[2023-08-25 16:29] LABS: Glucose,Whole Blood 166 mg/dL (70-110)
[2023-08-25] MEDS: INSULIN ASPART (NovoLOG) 100 UNIT/ML VIAL SQ SCH (16:40)
[2023-08-25] MEDS: PROCHLORPERAZINE INJ 10 MG/2 ML VIAL IVP STA (17:41)
[2023-08-25] MEDS ORDERED: IPRATROPIUM-ALBUTEROL 3 ML NEB INHALATION PRN (19:46)
[2023-08-25 22:10] LABS: Glucose,Whole Blood 157 mg/dL (70-110)
[2023-08-26 06:54] LABS: Glucose,Whole Blood 145 mg/dL (70-110)
--- NOTE | 2023-08-26 07:46 | XR ---
EXAMINATION TYPE: XR chest 1V portable DATE OF EXAM: 08/26/2023 COMPARISON: 08/25/2023 HISTORY: Tube placement TECHNIQUE: Single frontal view of the chest is obtained. FINDINGS: Left-sided central line stable. ET and NG tube have been removed. There is left lower lobe consolidation and small effusion. Mild coarsening of the interstitium but no pneumothorax. Osseous s tructures stable. Heart is enlarged. Atherosclerotic change aorta. IMPRESSION: 1. Stable lower lobe infiltrate and small effusion correlate for mild CHF otherwise consider pneumoni a.
--- NOTE | 2023-08-26 07:55 | P.PN ---
Subjective Progress Note Date: 08/26/23 History of Present Illness: The patient is a 57-year-old female with known history of hypertension, hyperl ipidemia, diabetes mellitus as well as a history of coronary disease status post stenting of the RCA and chronic kidney disease who presented with dyspnea and had a cardiopulmonary arrest requiring CPR and mechanical ventilation. She is extubated, complaining of chest wall tenderness post CPR. She continues to be in sinus mechanism and hemodynamically stable. She had some bradycardia earlier and was started on IV dopamine. She is in sinus mechanism with no further bradycardia. Her urinary output has been stable. Her initial echo on presentation showed a preserved systolic function subsequently was found to have cardiomyopathy but that was done shortly after the event. She has a subacute fracture of the medial and lateral malleolus on the right side. Medications: Aspirin, amlodipine 10 mg daily, Plavix 75 mg daily, insulin, Nitropaste Physical Examination: 57-year-old female, alert, oriented complaining of chest wall tenderness,Blood pressure 145/80, Heart rate 80 Head: Normocephalic. Eyes: Sclerae nonicteric. Neck: Good carotid upstroke, no bruit, no jugular venous distention. Lungs: Few scattered rhonchi Heart: Regular rate and rhythm, S1-S2, no S3, no rub. No murmur. Abdomen: Soft nontender, positive bowel sounds no organomegaly. Extremities: No edema, intact distal pulses. Cast on the right lower extremity Labs: Yesterday BUN 57, creatinine 2.49 Impression: 1. Status post cardiopulmonary arrest, etiology unclear. No clear evidence of acute ischemic event. The patient has a cardiomyopathy that could be related to the acute event 2. Status post stenting of the RCA during prior admission 3. Chronic kidney disease 4. Chest wall discomfort 5. History of hyperlipidemia 6. History of hypertension 7. Bradycardia resolved 8. History of diabetes Plan: 1. Stop IV dopamine 2. Obtain a limited echo 3. Follow renal functions 4. Follow blood pressure and adjust medical regimen accordingly 5. Depending on her progress further recommendations will be made Objective - Vital Signs Vital signs: Vital Signs Temp 98.1 F 08/26/23 00:00 Pulse 80 08/26/23 07:00 Resp 17 08/26/23 07:00 BP 145/82 08/26/23 07:00 Pulse Ox 97 08/26/23 06:00 FiO2 40 08/25/23 11:38 Intake & Output 08/25/23 08/26/23 08/26/23 18:59 06:59 18:59 Intake Total 1261.818 507 40 Output Total 980 530 45 Balance 281.818 -23 -5 Weight 74 kg Intake: IV 50 190 Sodium Chloride 0.9% 1, 50 190 000 ml @ 50 mls/hr IV . Q20H [facility] Rx#:[id number] Intake, IV Titration 843.818 317 40 Amount DOPamine DRIP 800 mg In 122.484 Dextrose/Water 1 250ml. bag @ 2.5 MCG/KG/MIN 3. 478 mls/hr IV .Q24H RYLIE Rx#:[id number] Piperacillin-Tazobactam 3 100 .375 gm In Sodium Chloride 0.9% 100 ml @ 25 mls/hr IVPB Q12H R[facility] Rx# :[id number] Sodium Chloride 0.9% 1, 550 317 40 000 ml @ 50 mls/hr IV . Q20H RYLIE Rx#:[id number] propofoL 1,000 mg In 71.334 Empty Bag 1 bag @ 15 MCG/ KG/MIN 6.291 mls/hr IV . [id number] [facility]YLIE Rx#:[id number] Oral 100 Tube Feeding 208 Other 60 Output: Urine 880 530 45 Uretheral ([place]) 65 Emesis 100 Other: Voiding Method Indwelling Catheter Indwelling Catheter ABP, PAP, CO, CI - Last Documented Arterial Blood Pressure 162/63 - Labs CBC & Chem 7: 08/25/23 04:29 08/25/23 04:29 Labs: Abnormal Lab Results - Last 24 Hours (Table) 08/25/23 08/25/23 08/25/23 Range/Units 11:36 16:27 20:09 POC Glucose (mg/dL) 211 H 166 H 157 H (70-110) mg/dL 08/26/23 Range/Units 06:53 POC Glucose (mg/dL) 145 H (70-110) mg/dL Microbiology - Last 24 Hours (Table) 08/23/23 14:30 Catheter Tip Culture - Final Catheter Tip Corynebacterium species 08/23/23 01:25 Blood Culture - Preliminary Blood 08/23/23 08:35 Gram Stain - Final Sputum Sputum Culture - Final
--- NOTE | 2023-08-26 08:00 | P.PN ---
Subjective Progress Note Date: 08/25/23 Principal diagnosis: Reason for follow-up is right heel diabetic foot ulcer Patient is a 57-year-old female with a past medical history significant for diabetes mellitus hypertension hyperlipidemia history of renal insufficiency requiring dialysis currently not on dialysis and the patient also have a chronic nonhealing wound to the right heel area, present to the hospital with increasing shortness of breath and swelling concerning for fluid overload.Patient did have a cardiac arrest around 4 AM 08/23/2023 with the patient went into asystole got resuscitated intubated and transferred to the ICU subsequently have another cardiac arrest with PEA rhythm not resuscitated. On today's evaluation that is 08/25/2023, patient has been extubated this morning, the patient is afebrile, patient is breathing comfortably and is currently on 4 L nasal cannula oxygen, patient denies having did have some cough not bring up any sputum no abdominal pain and no diarrhea reported. Patient white count is 10.5 creatinine is 2.49 urine with E. coli resistant to Unasyn sensitive to Zosyn blood culture so far negative Objective - Vital Signs Vital signs: Vital Signs Temp 98.2 F 08/25/23 12:00 Pulse 72 08/25/23 14:00 Resp 18 08/25/23 14:00 BP 129/66 08/25/23 14:00 Pulse Ox 96 08/25/23 14:00 FiO2 40 08/25/23 11:38 Intake & Output 08/24/23 08/25/23 08/25/23 18:59 06:59 18:59 Intake Total 583.948 5182.000 926.980 Output Total 595 965 665 Balance 390.483 195.000 261.980 Weight 75.7 kg Intake: IV 50 510 50 Sodium Chloride 0.9% 1, 50 510 50 000 ml @ 50 mls/hr IV . Q20H RYLIE Rx#:[id number] Intake, IV Titration 645.483 150.000 608.980 Amount DOPamine DRIP 800 mg In 87.646 Dextrose/Water 1 250ml. bag @ 2.5 MCG/KG/MIN 3. 478 mls/hr IV .Q24H [facility]YLIE Rx#:[id number] Piperacillin-Tazobactam 3 100 .375 gm In Sodium Chloride 0.9% 100 ml @ 25 mls/hr IVPB Q12H [facility]YLIE Rx# :[id number] Sodium Chloride 0.9% 1, 550 50 350 000 ml @ 50 mls/hr IV . Q20H RYLIE Rx#:[id number] propofoL 1,000 mg In 95.483 100.000 71.334 Empty Bag 1 bag @ 15 MCG/ KG/MIN 6.291 mls/hr IV . [id number] RYLIE Rx#:[id number] Tube Feeding 200 410 208 Other 90 90 60 Output: Urine 595 965 665 Other: Voiding Method Indwelling Catheter Indwelling Catheter Indwelling Catheter ABP, PAP, CO, CI - Last Documented Arterial Blood Pressure 142/55 - Exam GENERAL DESCRIPTION: Middle-aged female intubated on the vent RESPIRATORY SYSTEM: Unlabored breathing , decreased breath sounds at bases HEART: S1 S2 regular rate and rhythm , ABDOMEN: Soft , no tenderness EXTREMITIES: Right heel wound is currently dressed - Labs CBC & Chem 7: 08/25/23 04:29 08/25/23 04:29 Labs: Abnormal Lab Results - Last 24 Hours (Table) 08/24/23 08/25/23 08/25/23 Range/Units 17:33 00:42 04:29 RBC 3.63 L (3.80-5.40) m/uL Hgb 10.3 L (11.4-16.0) gm/dL Hct 32.7 L (34.0-46.0) % RDW 17.0 H (11.5-15.5) % Neutrophils # 8.5 H (1.3-7.7) k/uL Lymphocytes # 0.8 L (1.0-4.8) k/uL ABG pH (7.35-7.45) ABG HCO3 (21-25) mmol/L ABG O2 Saturation (94-97) % Chloride (98-107) mmol/L Carbon Dioxide (22-30) mmol/L BUN (7-17) mg/dL Creatinine (0.52-1.04) mg/dL Glucose (74-99) mg/dL POC Glucose (mg/dL) 118 H 137 H (70-110) mg/dL Calcium (8.4-10.2) mg/dL 08/25/23 08/25/23 08/25/23 Range/Units 04:29 05:17 06:06 RBC (3.80-5.40) m/uL Hgb (11.4-16.0) gm/dL Hct (34.0-46.0) % RDW (11.5-15.5) % Neutrophils # (1.3-7.7) k/uL Lymphocytes # (1.0-4.8) k/uL ABG pH 7.31 L (7.35-7.45) ABG HCO3 20 L (21-25) mmol/L ABG O2 Saturation 97.5 H (94-97) % Chloride 113 H (98-107) mmol/L Carbon Dioxide 18 L (22-30) mmol/L BUN 57 H (7-17) mg/dL Creatinine 2.49 H (0.52-1.04) mg/dL Glucose 142 H (74-99) mg/dL POC Glucose (mg/dL) 160 H (70-110) mg/dL Calcium 7.0 L (8.4-10.2) mg/dL 08/25/23 Range/Units 11:36 RBC (3.80-5.40) m/uL Hgb (11.4-16.0) gm/dL Hct (34.0-46.0) % RDW (11.5-15.5) % Neutrophils # (1.3-7.7) k/uL Lymphocytes # (1.0-4.8) k/uL ABG pH (7.35-7.45) ABG HCO3 (21-25) mmol/L ABG O2 Saturation (94-97) % Chloride (98-107) mmol/L Carbon Dioxide (22-30) mmol/L BUN (7-17) mg/dL Creatinine (0.52-1.04) mg/dL Glucose (74-99) mg/dL POC Glucose (mg/dL) 211 H (70-110) mg/dL Calcium (8.4-10.2) mg/dL Microbiology - Last 24 Hours (Table) 08/23/23 08:35 Gram Stain - Final Sputum Sputum Culture - Final 08/23/23 14:30 Catheter Tip Culture - Preliminary Catheter Tip 08/23/23 01:25 Blood Culture - Preliminary Blood 08/22/23 10:30 Urine Culture - Final Urine,Voided Escherichia coli Assessment and Plan (1) Pressure ulcer of right heel, stage 3 Current Visit: No Status: Acute Code(s): L89.613 - PRESSURE ULCER OF RIGHT HEEL, STAGE 3 SNOMED Code(s): 41033667275104 (2) Type 2 diabetes mellitus with foot ulcer Current Visit: No Status: Acute Code(s): E11.621 - TYPE 2 DIABETES MELLITUS WITH FOOT ULCER; L97.509 - NON-PRESSURE CHRONIC ULCER OTH PRT UNSP FOOT W UNSP SEVERITY SNOMED Code(s): 250078308 (3) UTI (urinary tract infection) Current Visit: Yes Status: Acute Code(s): N39.0 - URINARY TRACT INFECTION, SITE NOT SPECIFIED SNOMED Code(s): 67340047 (4) Aspiration pneumonia Current Visit: Yes Status: Acute Code(s): J69.0 - PNEUMONITIS DUE TO INHALATION OF FOOD AND VOMIT SNOMED Code(s): 310144095 Plan: 1patient with chronic nonhealing wound to the right heel area which has been there for a couple of months now patient overall wound base looks clean with no slough tissue in the wound is not pulling out the wound more likely a pressure ulcer stage III with evidence of any secondary cellulitis, local wound care has been switched over to the wound VAC to continue management per wound care 3-patient did have cardiac arrest requiring resuscitation in this patient who did have a chest x-ray with a right-sided infiltrate and question of aspiration pneumonia urine culture grew E. coli with some resistant pattern, sputum has been negative blood culture currently pending catheter tip cultures pending patient has been successfully extubated we will continue patient on Zosyn and monitor clinical course closely Family at the bedside questions were answered Dictation was produced using [employer] dictation software. please excuse any grammatical, word or spelling errors. Time with Patient: Less than 30
[2023-08-26] MEDS: IPRATROPIUM-ALBUTEROL 3 ML NEB INHALATION SCH (08:22)
[2023-08-26 08:28] LABS: African American GFR (CKD) 27 (>60 ml/min/1.73 sqM); Anion Gap 8 mmol/L; Blood Urea Nitrogen 51 mg/dL (7-17); Calcium 7.9 mg/dL (8.4-10.2); Carbon Dioxide 17 mmol/L (22-30); Chloride 116 mmol/L (98-107); Glucose 138 mg/dL (74-99); Non-African American GFR(CKD) 23 (>60 ml/min/1.73 sqM); Potassium 4.6 mmol/L (3.5-5.1); Sodium 141 mmol/L (137-145)
[2023-08-26] MEDS: ISOSORBIDE MONONITRATE ER 30 MG TAB.ER.24H PO SCH (09:01)
[2023-08-26] MEDS: ATORVASTATIN 40 MG TAB PO SCH (09:01)
[2023-08-26] MEDS: hydrALAZINE HCL 25 MG TAB PO SCH (09:02)
[2023-08-26] MEDS: amLODIPine 5 MG TAB PO SCH (09:02)
[2023-08-26 09:21] LABS: Anisocytosis Slight; HCT 27.8 % (34.0-46.0); Hypochromasia Moderate; MCHC 30.5 g/dL (31.0-37.0); MCV 91.7 fL (80.0-100.0); Mean Platelet Volume 9.4; Platelet Count 217 k/uL (150-450); RBC 3.03 m/uL (3.80-5.40); RDW 17.3 % (11.5-15.5); WBC 8.6 k/uL (3.8-10.6)
[2023-08-26] MEDS: DEXMEDETOMIDINE/0.9% NACL(PMX) 400 MCG in EMPTY BAG 1 BAG IV SCH (09:56)
[2023-08-26 09:59] LABS: HGB 8.5 gm/dL (11.4-16.0)
[2023-08-26 11:57] LABS: Glucose,Whole Blood 157 mg/dL (70-110)
--- NOTE | 2023-08-26 12:11 | P.PN ---
Subjective Progress Note Date: 08/26/23 57-year-old female came in with complaints of shortness of breath and orthopnea found to be in congestive heart failure exacerbation patient has congestive heart failure with reduced ejection fraction in the past patient has increasing pedal edema. Patient also has an ulcer in the right foot stage III-IV which appeared to be infected we will consult wound care and infectious disease. Patient was on hemodialysis during last hospitalization her creatinine presently is 1.5 which is significantly improved patient potassium is 5.5, patient is on Entresto and Aldactone Aldactone will be held Entresto will be continued since she is receiving IV Lasix and expecting her potassium to improve if it does not improve or get worse then Entresto need to be discontinued as well. Patient has hypervolemic hyponatremia and hyperglycemia. 08/21/2023 Was evaluated today on the medical floor. Patient was continued on IV Lasix overnight however she was no longer reporting any shortness of breath and her lower extremity edema has improved. She was taken off of the Lasix at this time due to increased creatinine up to 2.31 additionally potassium remains elevated at 5.7. Echocardiogram comes back showing an improved ejection fraction of 60 to 65% because of this and also the hyperkalemia patient will not be continued on entresto. Patient was evaluated by infectious disease who felt like that heel ulcer on the right side was more likely a pressure injury stage III and is recommending local wound care to continue with Aquacel. Patient is reporting significant pain to the right foot and feels like it is fractured. Upon review of the patient's chart she did have a x-ray completed of this 12 days ago ordered by her population geneticist Dr. Mayen. Ankle x-ray did review a mildly displaced acute distal fibular fracture. Repeat x-ray of the foot and ankle completed today does reveal a subacute fractures of the medial and lateral malleolus. The lateral malleolus fracture was seen on the patient's prior exam the medial malleolus fracture may be new in the interval and this would be considered an unstable ankle fracture. There is interval 6 mm displacement of the lateral malleolus. There is a deep soft tissue ulcer at the plantar heel with no clear radiographic findings of a contagious osteomyelitis at this time. Orthooedics was consulted for this. 08/22/2023 Patient evaluated in follow-up today resting in bed. She was taken off of the Lasix remains off at this time. Bladder scan was requested and not done yesterday to rule out urinary retention, creatinine today is increased up to 2.56. Bladder scan was done require urinary straight catheterization of 550 mL taken out. Urinalysis was sent which is significantly abnormal. Patient is also noted to have multiple genital lesions which appear wartlike she admits to not having any routine gynecological screenings for many years. She is not having any vaginal bleeding or discharge. Renal ultrasound has been ordered to rule out any obstructive uropathy. 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 Patient upon arrival to the intensive care unit had another episode of cardiac arrest patient had bradycardia while on pressors in the ICU patient was intubated following the first cardiac arrest and is currently on the mechanical ventilator 50% FiO2. Chest x-ray showing similar interstitial and patchy component airspace disease right greater than left. There is a possible trace left pleural effusion. A brain CT which shows no acute intracranial process. Blood work today shows a white blood cell count of 13.8, hemoglobin 9.5, sodium level of 135, BUN of 62, creatinine of 2.76. AST ALT and alk phosphatase are significantly elevated consistent with a shock liver. TSH 3.310. Urinalysis is abnormal. Her urine culture is showing gram-negative bacilli patient is covered for the urinary tract infection as well as aspiration with IV Zosyn being managed by infectious disease. Patient is currently sedated with propofol and did require vasopressor support with Levophed which has been weaned at this time. Will discontinue the gabapentin patient is continued on aspirin Plavix and statin has been placed on hold. There is concern for possible arrhythmia precipitating the asystole additionally we need to rule out embolism and a D-dimer has been ordered. 08/24/2023 Patient is seen in follow-up today continues in the ICU on mechanical ventilation. FiO2 is 50% although titrating and was just placed at 40% with a PEEP of 5. Chest x-ray today shows that the ET tube is 7 mm from the sonam suggesting a pulled back 2 cm and reassess and also suspected underlying vascular congestion. Neuro is following and per nursing staff patient is following some simple commands and undergoing sedation holidays. Patient noted to have reduced EF of 30 to 35% and cardiology had been following. Will reconsult and appreciate input and recommendations. patient did have dialysis catheter removed and sent for cultures which are pending. Infectious disease following and patient is maintained on antibiotic. D-dimer is elevated above 16 and will attempt to obtain a VQ scan.57-year-old female came in with complaints of shortness of breath and orthopnea found to be in congestive heart failure exacerbation patient has congestive heart failure with reduced ejection fraction in the past patient has increasing pedal edema. Patient also has an ulcer in the right foot stage III-IV which appeared to be infected we will consult wound care and infectious disease. Patient was on hemodialysis during last hospitalization her creatinine presently is 1.5 which is significantly improved patient potassium is 5.5, patient is on Entresto and Aldactone Aldactone will be held Entresto will be continued since she is receiving IV Lasix and expecting her potassium to improve if it does not improve or get worse then Entresto need to be discontinued as well. Patient has hypervolemic hyponatremia and hyperglycemia. 08/21/2023 Was evaluated today on the medical floor. Patient was continued on IV Lasix overnight however she was no longer reporting any shortness of breath and her lower extremity edema has improved. She was taken off of the Lasix at this time due to increased creatinine up to 2.31 additionally potassium remains elevated at 5.7. Echocardiogram comes back showing an improved ejection fraction of 60 to 65% because of this and also the hyperkalemia patient will not be continued on entresto. Patient was evaluated by infectious disease who felt like that heel ulcer on the right side was more likely a pressure injury stage III and is recommending local wound care to continue with Aquacel. Patient is reporting significant pain to the right foot and feels like it is fractured. Upon review of the patient's chart she did have a x-ray completed of this 12 days ago ordered by her population geneticist Dr. Mayen. Ankle x-ray did review a mildly displaced acute distal fibular fracture. Repeat x-ray of the foot and ankle completed today does reveal a subacute fractures of the medial and lateral malleolus. The lateral malleolus fracture was seen on the patient's prior exam the medial malleolus fracture may be new in the interval and this would be considered an unstable ankle fracture. There is interval 6 mm displacement of the lateral malleolus. There is a deep soft tissue ulcer at the plantar heel with no clear radiographic findings of a contagious osteomyelitis at this time. Orthooedics was consulted for this. 08/22/2023 Patient evaluated in follow-up today resting in bed. She was taken off of the Lasix remains off at this time. Bladder scan was requested and not done yesterday to rule out urinary retention, creatinine today is increased up to 2.56. Bladder scan was done require urinary straight catheterization of 550 mL taken out. Urinalysis was sent which is significantly abnormal. Patient is also noted to have multiple genital lesions which appear wartlike she admits to not having any routine gynecological screenings for many years. She is not having any vaginal bleeding or discharge. Renal ultrasound has been ordered to rule out any obstructive uropathy. 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 Patient upon arrival to the intensive care unit had another episode of cardiac arrest patient had bradycardia while on pressors in the ICU patient was intubated following the first cardiac arrest and is currently on the mechanical ventilator 50% FiO2. Chest x-ray showing similar interstitial and patchy component airspace disease right greater than left. There is a possible trace left pleural effusion. A brain CT which shows no acute intracranial process. Blood work today shows a white blood cell count of 13.8, hemoglobin 9.5, sodium level of 135, BUN of 62, creatinine of 2.76. AST ALT and alk phosphatase are significantly elevated consistent with a shock liver. TSH 3.310. Urinalysis is abnormal. Her urine culture is showing gram-negative bacilli patient is covered for the urinary tract infection as well as aspiration with IV Zosyn being managed by infectious disease. Patient is currently sedated with propofol and did require vasopressor support with Levophed which has been weaned at this time. Will discontinue the gabapentin patient is continued on aspirin Plavix and statin has been placed on hold. There is concern for possible arrhythmia precipitating the asystole additionally we need to rule out embolism and a D-dimer has been ordered. 08/24/2023 Patient is seen in follow-up today continues in the ICU on mechanical ventilat ion. FiO2 is 50% although titrating and was just placed at 40% with a PEEP of 5. Chest x-ray today shows that the ET tube is 7 mm from the sonam suggesting a pulled back 2 cm and reassess and also suspected underlying vascular congestion. Neuro is following and per nursing staff patient is following some simple commands and undergoing sedation holidays. Patient noted to have reduced EF of 30 to 35% and cardiology had been following. Will reconsult and appreciate input and recommendations. patient did have dialysis catheter removed and sent for cultures which are pending. Infectious disease following and patient is maintained on antibiotic. D-dimer is elevated above 16 and will attempt to obtain a VQ scan. 08/25/23 : Patient seen and evaluated at bedside, patient extubated around noon, transition to 5 L of oxygen to nasal cannula. Family at bedside, blood work reviewed hemoglobin 10.3, serum chemistry reviewed sodium 140 potassium 4.8 BUN 57 creatinine 2.49 calcium of 7. 08/26/23 : Patient seen and evaluated at bedside, patient remains in medical ICU, does complain of chest pain from CPR. Patient has been weaned off dopamine, cardiology following, blood work reviewed, hemoglobin 8.5 platelet count of 217, serum chemistry shows sodium 141 BUN 51 creatinine 2.28. Followed up by nephrology as well MARYLOU secondary to ATN continue to monitor intake and output PHYSICAL EXAMINATION: GENERAL: The patient is alert to person and situation, nasal cannula in place HEENT: Pupils are round and equally reacting to light. EOMI. CARDIOVASCULAR: S1 and S2 present. No murmurs, rubs, or gallops. PULMONARY: Chest is clear to auscultation, no wheezing or crackles. ABDOMEN: Soft, nontender, nondistended, normoactive bowel sounds. No palpable organomegaly. MUSCULOSKELETAL: No joint swelling or deformity. EXTREMITIES: No cyanosis, clubbing, bilateral pedal edema NEUROLOGICAL: pupils reactive unable to assess sedated SKIN: Patient has right plantar surface ulcer on the posterior foot stage III-IV with areas of tissue Assessment and plan * Asystole/cardiopulmonary arrest x 2 with CPR/ROSC * Respiratory failure requiring intubation s/p extubation 08/25/2023 * Acute metabolic encephalopathy * Congestive heart failure with systolic dysfunction acute on chronic exacerbation * Ischemic cardiomyopathy with improved EF * Acute kidney injury secondary to ATN on chronic kidney disease stage III * Urinary tract infection with E. coli * Subacute fracture of the medial and lateral malleolus, orthopedics following * Right heel stage III pressure injury continue local wound care with aquacel ID following. * Genital lesions, will need youth associate follow up outpatient for routine screenings * Hypertension * Hyperlipidemia * Type 2 diabetes mellitus uncontrolled hgb a1c 12.1 * Severe pulmonary hypertension * COPD without any acute exacerbation * Peripheral neuropathy * Patient continues to remain critically ill, was intubated s/p extubation, weaned off to nasal cannula * In regards to urinary tract infection, chronic nonhealing wound and right heel, urine cultures grew E. coli. Patient treated with IV antibiotic received IV Zosyn * In regards to aspiration pneumonia,, continue patient on IV Zosyn managed by infectious disease * In regards to cardiomyopathy patient weaned off pressor support, dopamine weaned off as well, continue current medications including aspirin, Plavix, cardiology following * In regards to suspicion for pulm embolism venous ultrasound lower extremity ordered no evidence of DVT noted , VQ scan ordered pending * In regards to diabetes mellitus continue patient on Accu-Cheks, continue correctional insulin Objective - Vital Signs Vital signs: Vital Signs Temp 98.1 F 08/26/23 00:00 Pulse 76 08/26/23 08:36 Resp 17 08/26/23 07:00 BP 145/82 08/26/23 07:00 Pulse Ox 97 08/26/23 08:37 FiO2 40 08/25/23 11:38 Intake & Output 08/25/23 08/26/23 08/26/23 18:59 06:59 18:59 Intake Total 1261.818 507 40 Output Total 980 530 45 Balance 281.818 -23 -5 Weight 74 kg Intake: IV 50 190 Sodium Chloride 0.9% 1, 50 190 000 ml @ 50 mls/hr IV . Q20H RYLIE Rx#:[id number] Intake, IV Titration 843.818 317 40 Amount DOPamine DRIP 800 mg In 122.484 Dextrose/Water 1 250ml. bag @ 2.5 MCG/KG/MIN 3. 478 mls/hr IV .Q24H RYLIE Rx#:[id number] Piperacillin-Tazobactam 3 100 .375 gm In Sodium Chloride 0.9% 100 ml @ 25 mls/hr IVPB Q12H RYLIE Rx# :[id number] Sodium Chloride 0.9% 1, 550 317 40 000 ml @ 50 mls/hr IV . Q20H RYLIE Rx#:[id number] propofoL 1,000 mg In 71.334 Empty Bag 1 bag @ 15 MCG/ KG/MIN 6.291 mls/hr IV . [id number] RYLIE Rx#:[id number] Oral 100 Tube Feeding 208 Other 60 Output: Urine 880 530 45 Uretheral ([place]) 65 Emesis 100 Other: Voiding Method Indwelling Catheter Indwelling Catheter ABP, PAP, CO, CI - Last Documented Arterial Blood Pressure 162/63 - Labs CBC & Chem 7: 08/26/23 08:35 08/26/23 08:00 Labs: Abnormal Lab Results - Last 24 Hours (Table) 08/25/23 08/25/23 08/25/23 Range/Units 11:36 16:27 20:09 RBC (3.80-5.40) m/uL Hgb (11.4-16.0) gm/dL Hct (34.0-46.0) % MCHC (31.0-37.0) g/dL RDW (11.5-15.5) % Chloride (98-107) mmol/L Carbon Dioxide (22-30) mmol/L BUN (7-17) mg/dL Creatinine (0.52-1.04) mg/dL Glucose (74-99) mg/dL POC Glucose (mg/dL) 211 H 166 H 157 H (70-110) mg/dL Calcium (8.4-10.2) mg/dL 08/26/23 08/26/23 08/26/23 Range/Units 06:53 08:00 08:35 RBC 3.03 L (3.80-5.40) m/uL Hgb 8.5 L D (11.4-16.0) gm/dL Hct 27.8 L (34.0-46.0) % MCHC 30.5 L (31.0-37.0) g/dL RDW 17.3 H (11.5-15.5) % Chloride 116 H (98-107) mmol/L Carbon Dioxide 17 L (22-30) mmol/L BUN 51 H (7-17) mg/dL Creatinine 2.28 H (0.52-1.04) mg/dL Glucose 138 H (74-99) mg/dL POC Glucose (mg/dL) 145 H (70-110) mg/dL Calcium 7.9 L (8.4-10.2) mg/dL Microbiology - Last 24 Hours (Table) 08/23/23 14:30 Catheter Tip Culture - Final Catheter Tip Corynebacterium species 08/23/23 01:25 Blood Culture - Preliminary Blood 08/23/23 08:35 Gram Stain - Final Sputum Sputum Culture - Final
[2023-08-26] MEDS: PIPERACILLIN-TAZOBACTAM 3.375 GM in SODIUM CHLORIDE 0.9% 100 ML IVPB SCH (12:32)
--- NOTE | 2023-08-26 13:23 | P.PN ---
Subjective Progress Note Date: 08/26/23 Pulmonary consult dated August 23, 2023. This is a 57-year-old female who was admitted back on August 18, for a right heel wound. Early this morning, the patient had a cardiopulmonary arrest. The patient apparently was initially found to be bradycardic, and then had asystole. She received 3 rounds of epinephrine. She arrived to the intensive care unit this morning at 630, having been intubated on the floor by anesthesia. In the ICU, the patient had an episode of pulseless electrical activity, and asystole, and received 2 rounds of epinephrine, a dose of atropine, and some sodium bicarbonate. I came into the intensive care unit this morning, early, to place a left internal jugular triple-lumen catheter, and a right femoral arterial line. Currently, the patient is on volume assist-control, rate 16, tidal volume 400, FiO2 50%, PEEP of 5. The most recent blood gases show pO2 of 75, pCO2 49, pH is 7.44. Arterial blood gases shortly after intubation showed a pO2 of 268, pCO2 of 38, and a pH of 7.25. The patient is currently on norepinephrine at 1.4 mcg/min, and saline at 50 cc an hour. Current labs include a white count 13.8, hemoglobin 9.5, hematocrit 31, and a platelet count of 257,000. PT was 12.9 with an INR of 1.2. Sodium 135, potassium 4.9, chlorides 111, CO2 19, anion gap 5, BUN 62, creatinine 2.76. The patient's AST is 468. ALT is 286. Albumin is 2.1. Urine, is suspicious for possible infection. Brain CT Today, Shows No Acute Intracranial Process. Chest x-ray shows bilateral patchy airspace disease, right greater than left. Progress note dated August 24, 2023. The patient is seen today in the intensive care unit, room 255. The patient remains on the mechanical ventilator. Current settings include volume assist- control, rate 16, tidal volume 400, FiO2 50%, PEEP of 5. The tidal volume will be dropped down to 350, and the FiO2 will be dropped down to 40%, current blood gases show pO2 132, pCO2 34, pH is 7.37. The patient continues on 0.9 at 50 cc an hour, propofol at 20 mcg/kg/min, and vital 1.2 at 10 cc an hour, with a goal of 48. The patient is discovered to have gram-negative bacilli in the urine. She continues on Zosyn. White count 9, hemoglobin 9.6, hematocrit 30.1, platelet count 242,000. Sodium 138, potassium 4.7, chloride 113, CO2 18, BUN 63, and creatinine 2.65. Anion gap is 7. The patient's AST is 199, ALT is 235. Troponin is 0.565. Albumin is 2.0. The gram-negative bacilli in the urine was discovered to be Escherichia coli. Chest x-ray shows an endotracheal tube that is too low in the trachea, and should be pulled back. In addition, there is evidence of underlying vascular congestion, and/or infiltrates. Progress note dated August 25, 2023. 57-year-old female seen again in room 255. The patient remains on mechanical ventilator. She is on volume assist-control, rate 16, tidal volume 350, FiO2 40%, PEEP of 5. Blood gases show a pO2 of 95, pCO2 of 39, pH is 7.31. The patient is getting propofol 35 mcg/kg/min, saline at 50 cc an hour, and dopamine at 2.5 mcg/kg/min. The patient continues on Zosyn for Escherichia coli. The patient did develop some bradycardia, overnight, which required her to be on do pamine. We are going to order some Dopplers of the lower extremities. In addition, we will do a daily interruption of sedation, and a spontaneous breathing trial. Count is 10.5, hemoglobin 10.3, hematocrit 32.7, platelet count 314,000. Sodium 140, potassium 4.8, chlorides 113, CO2 18, BUN 57, cr eatinine 2.49. Glucose is 142. Magnesium is 2.1, calcium is 7.0. The patient's urine specimen from August 21, revealed Escherichia coli. Dopplers of the lower extremities were negative. Chest x-ray shows some patchy bilateral infiltrates, more left-sided than right-sided. On today's evaluation of 08/26/2023, the patient is being seen for a follow-up. The patient is post cardiopulmonary arrest that occurred on 08/23/2023 and the patient return of spontaneous circulation. Subsequently, the patient was extubated on 08/25/2023. The patient is currently on 4 L of oxygen by nasal cannula. The patient remains encephalopathic. At times, restless in bed and somewhat agitated. Based on that, made recommendations to start the patient on Precedex at the low-dose to control her restlessness and agitation. She is also noted to have a right ankle fracture and a chronic nonhealing heel ulcer, stage [place]. She was also found to have an E. coli in her urine possibly underlying urine tract infection on 08/22/2023. On today's evaluation, the patient is on 40s of oxygen by nasal cannula. Chest x-ray showing cardiomegaly and the patient has a left subclavian triple-lumen catheter in place. Hemodynamically stable on no pressors. WBC count of 8.6 with a hemoglobin 8.5 and a platelet count of 217. BUN is 51 with a creatinine of 2.28 and a sodium level is at 141 and a bicarb level is at 17. The patient is moving all 4 extremities without any limitation. The patient is currently afebrile. Nephrology is on the case regarding MARYLOU which is probably secondary to ATN and has creatinine is being monitored. Fluid balance over the past 24 hours has been 250 cc positive and the patient shows no signs of any significant fluid overload. The patient is currently on IV Zosyn regarding the possibility of an aspiration/E. coli urinary tract infection and is stage III right heel wound. She remains on bronchodilators. She is on no pressors for now. No other significant events overnight. As mentioned, she was extubated yesterday and the chest x-ray shows distal stable left-sided pleural effusion. The echocardiogram that was done on 08/20/2023 showed a preserved left ventricular ejection fraction, no significant valvular abnormalities. The patient also had Doppler of the lower extremity on 08/25/2023 that revealed no evidence of any DVT. There was a prominent lymph node in the right groin measuring 2.6 cm in size. The patient did have a catheter in her right IJ at the time of admission that was removed and the cultures came back positive for corynebacterium. Objective - Vital Signs Vital signs: Vital Signs Temp 98.1 F 08/26/23 00:00 Pulse 80 08/26/23 07:00 Resp 17 08/26/23 07:00 BP 145/82 08/26/23 07:00 Pulse Ox 97 08/26/23 06:00 FiO2 40 08/25/23 11:38 Intake & Output 08/25/23 08/26/23 08/26/23 18:59 06:59 18:59 Intake Total 1261.818 507 40 Output Total 980 530 45 Balance 281.818 -23 -5 Weight 74 kg Intake: IV 50 190 Sodium Chloride 0.9% 1, 50 190 000 ml @ 50 mls/hr IV . Q20H RYLIE Rx#:[id number] Intake, IV Titration 843.818 317 40 Amount DOPamine DRIP 800 mg In 122.484 Dextrose/Water 1 250ml. bag @ 2.5 MCG/KG/MIN 3. 478 mls/hr IV .Q24H RYLIE Rx#:[id number] Piperacillin-Tazobactam 3 100 .375 gm In Sodium Chloride 0.9% 100 ml @ 25 mls/hr IVPB Q12H RYLIE Rx# :[id number] Sodium Chloride 0.9% 1, 550 317 40 000 ml @ 50 mls/hr IV . Q20H RYLIE Rx#:[id number] propofoL 1,000 mg In 71.334 Empty Bag 1 bag @ 15 MCG/ KG/MIN 6.291 mls/hr IV . [id number] RYLIE Rx#:[id number] Oral 100 Tube Feeding 208 Other 60 Output: Urine 880 530 45 Uretheral ([place]) 65 Emesis 100 Other: Voiding Method Indwelling Catheter Indwelling Catheter ABP, PAP, CO, CI - Last Documented Arterial Blood Pressure 162/63 - Exam No acute distress, calm and comfortable on 4 L of oxygen by nasal cannula, restless in bed, has some degree of encephalopathy. Head exam was generally normal. There was no scleral icterus or corneal arcus. Mucous membranes were moist. HEENT examination is grossly unremarkable. Neck supple. Full range of motion. No adenopathy thyromegaly or neck vein distention. Cardiovascular examination reveals regular rhythm rate. S1-S2 normal. No S3 or S4. No discernible murmur noted. Heart sounds are distant. Lungs reveal scattered bilateral rhonchi. No wheezes or crackles. Breath sounds equal bilaterally. Abdomen soft without bowel sounds. Extremities are intact. No cyanosis clubbing or edema. The patient has a soft splint in her right lower extremity. Pulses are diminished at the present in all 4 extremities. Skin is without rash or lesion. Stage III nonhealing heel ulcer in the right lower extremity. Neurologic examination cannot be assessed at this time. No focal neurological deficits. Pupils are equal reactive to light. - Labs CBC & Chem 7: 08/26/23 08:35 08/26/23 08:00 Labs: Abnormal Lab Results - Last 24 Hours (Table) 08/25/23 08/25/23 08/25/23 Range/Units 11:36 16:27 20:09 POC Glucose (mg/dL) 211 H 166 H 157 H (70-110) mg/dL 08/26/23 Range/Units 06:53 POC Glucose (mg/dL) 145 H (70-110) mg/dL Microbiology - Last 24 Hours (Table) 08/23/23 14:30 Catheter Tip Culture - Final Catheter Tip Corynebacterium species 08/23/23 01:25 Blood Culture - Preliminary Blood 08/23/23 08:35 Gram Stain - Final Sputum Sputum Culture - Final Assessment and Plan Plan: Cardiopulmonary arrest, x 2, with cardiopulmonary resuscitation, and return of spontaneous circulation on 08/23/23, echocardiogram shows a preserved LV function. No significant valvular abnormalities at this point in time. Cardiac rhythm is sinus. Acute hypoxic respiratory failure, postcardiac arrest, intubated and subsequently extubated on 08/25/2023 currently on 4 L oxygen by nasal cannula. S/P intubation, and mechanical ventilation, secondary to cardiopulmonary arrest, August 23, 2023. She was extubated on 08/25/23 Encephalopathy with possibility of an underlying hypoxic encephalopathy postcardiac arrest, CAT scan of the brain that was done showed no evidence of any acute abnormalities. History of congestive heart failure. Echocardiogram from this current admission shows a preserved LV function.. Stage III chronic kidney disease, creatinine is stable for now Right heel pressure ulcer, stage III Subacute fracture of the medial and lateral malleolus, she has a soft cast in the right lower extremity History of hypertension. History of hyperlipidemia. History of type 2 diabetes mellitus. History of severe pulmonary hypertension. History of COPD. History of peripheral neuropathy. Plan The patient is currently hemodynamically stable on no pressors. Cardiac rhythm is sinus. IV dopamine has been discontinued. Will obtain repeated limited echocardiogram to reevaluate LV function. Utilize Precedex for encephalopathy and restlessness and agitation Monitor renal function continue aspirin and Plavix Continue IV Zosyn IV fluids with normal saline at rate of 50 cc an hour No pressors for now Continue Lipitor 40 mg p.o. daily Continue Norvasc 5 mg p.o. daily Continue Imdur 30 mg p.o. daily Heparin subcu for DVT prophylaxis Neurology consultation Will continue to follow This evaluation was done more than 30 minutes and there is a critical care evaluation. The patient be kept in ICU for now. Time with Patient: Greater than 30
--- NOTE | 2023-08-26 13:46 | CA ---
Transthoracic Echo Report Name: Chelle Lin Age: 57 Gender: F : 1965 Exam Date: 08/26/2023 10:31 Exam Location: [facility] Ht (in): 63 Wt (lb): 163 Ordering Physician: Best Riddle MD Attending/Referring Phys: Railroad Signal Operator Nellie Floyd RDCS Procedure CPT: Indications: LV function Cardiac Hx: Technical Quality: Good Contrast 1: Total Dose (mL): Contrast 2: Total Dose (mL): MEASUREMENTS (Male / Female) Normal Values 2D ECHO LV Diastolic Diameter PLAX 3.9 cm 4.2 - 5.9 / 3.9 - 5.3 cm LV Systolic Diameter PLAX 2.8 cm IVS Diastolic Thickness 1.1 cm 0.6 - 1.0 / 0.6 - 0.9 cm LVPW Diastolic Thickness 1.3 cm 0.6 - 1.0 / 0.6 - 0.9 cm LV Relative Wall Thickness 0.6 RV Internal Dim ED PLAX 2.9 cm LA Systolic Diameter LX 4.2 cm 3.0 - 4.0 / 2.7 - 3.8 cm LV Diastolic Volume MOD BP 79.0 cm??? 67 - 155 / 56 - 104 cm??? LV Systolic Volume MOD BP 36.2 cm??? 22 - 58 / 19 - 49 cm??? LV Ejection Fraction MOD BP 54.2 % >= 55 % LV Diastolic Volume MOD 4C 75.5 cm??? LV Systolic Volume MOD 4C 36.9 cm??? LV Ejection Fraction MOD 4C 51.2 % LV Diastolic Length 4C 7.3 cm LV Systolic Length 4C 6.4 cm LV Diastolic Volume MOD 2C 76.2 cm??? LV Systolic Volume MOD 2C 27.7 cm??? LV Ejection Fraction MOD 2C 63.7 % LV Diastolic Length 2C 8.0 cm LV Systolic Length 2C 6.5 cm FINDINGS Left Ventricle Left ventricular ejection fraction is estimated at 55-60 %. Mildly increased septal wall thickness. Left ventricular cavity size normal. Normal left ventricular systolic function with no obvious regional wall motion abnormalities. Right Ventricle Right Atrium Left Atrium Mildly increased left atrial diameter. Mitral Valve Aortic Valve Tricuspid Valve Pulmonic Valve Pericardium Aorta CONCLUSIONS Limited echocardiogram for ejection fraction Normal LV systolic function Previewed by: Dr. Francisco Javier Valencia MD (Electronically Signed) Final Date: 26 August 2023 13:45
[2023-08-26] MEDS: LACTATED RINGERS 1,000 ML IV SCH (15:12)
[2023-08-26 17:00] LABS: Glucose,Whole Blood 144 mg/dL (70-110)
--- NOTE | 2023-08-26 18:13 | P.PN ---
Subjective Patient is seen for follow-up for acute kidney injury. She is confused. Started on Precedex. Serum creatinine has improved and is down to 2.2. Maintained on IV fluids at 50 cc an hour. Objective - Vital Signs Vital signs: Vital Signs Temp 97.4 F L 08/26/23 12:00 Pulse 56 L 08/26/23 18:00 Resp 14 08/26/23 18:00 BP 117/64 08/26/23 18:00 Pulse Ox 99 08/26/23 18:00 FiO2 40 08/25/23 11:38 Intake & Output 08/25/23 08/26/23 08/26/23 18:59 06:59 18:59 Intake Total 1261.818 507 644.360 Output Total 980 530 380 Balance 281.818 -23 264.360 Weight 74 kg 74 kg Intake: IV 50 190 550 Lactated Ringers 1,000 ml 150 @ 50 mls/hr IV .Q20H RYLIE Rx#:[id number] Sodium Chloride 0.9% 1, 50 190 000 ml @ 50 mls/hr IV . Q20H RYLIE Rx#:[id number] Sodium Chloride 0.9% 1, 400 000 ml @ 50 mls/hr IV . Q20H RYLIE Rx#:[id number] Intake, IV Titration 843.818 317 94.360 Amount DOPamine DRIP 800 mg In 122.484 Dextrose/Water 1 250ml. bag @ 2.5 MCG/KG/MIN 3. 478 mls/hr IV .Q24H RYLIE Rx#:[id number] Dexmedetomidine/0.9% NaCl 54.360 (Pmx) 400 mcg In Empty Bag 1 bag @ 0.2 MCG/KG/HR 3.7 mls/hr IV .Q24H RYLIE Rx#:[id number] Piperacillin-Tazobactam 3 100 .375 gm In Sodium Chloride 0.9% 100 ml @ 25 mls/hr IVPB Q12H [facility] Rx# :[id number] Sodium Chloride 0.9% 1, 550 317 40 000 ml @ 50 mls/hr IV . Q20H R[facility]IE Rx#:[id number] propofoL 1,000 mg In 71.334 Empty Bag 1 bag @ 15 MCG/ KG/MIN 6.291 mls/hr IV . [id number] R[facility]IE Rx#:[id number] Oral 100 Tube Feeding 208 Other 60 Output: Urine 880 530 380 Uretheral ([place]) 65 Emesis 100 Other: Voiding Method Indwelling Catheter Indwelling Catheter Indwelling Catheter ABP, PAP, CO, CI - Last Documented Arterial Blood Pressure 123/51 - Exam Patient is awake. She is comfortable. Confused Examination of the heart S1 and S2 Examination of the lungs bilateral breath sounds are heard Abdomen is soft nontender Examination of lower extremities shows no significant edema - Labs CBC & Chem 7: 08/26/23 08:35 08/26/23 08:00 Labs: Abnormal Lab Results - Last 24 Hours (Table) 08/25/23 08/26/23 08/26/23 Range/Units 20:09 06:53 08:00 RBC (3.80-5.40) m/uL Hgb (11.4-16.0) gm/dL Hct (34.0-46.0) % MCHC (31.0-37.0) g/dL RDW (11.5-15.5) % Chloride 116 H (98-107) mmol/L Carbon Dioxide 17 L (22-30) mmol/L BUN 51 H (7-17) mg/dL Creatinine 2.28 H (0.52-1.04) mg/dL Glucose 138 H (74-99) mg/dL POC Glucose (mg/dL) 157 H 145 H (70-110) mg/dL Calcium 7.9 L (8.4-10.2) mg/dL 08/26/23 08/26/23 08/26/23 Range/Units 08:35 11:56 16:59 RBC 3.03 L (3.80-5.40) m/uL Hgb 8.5 L D (11.4-16.0) gm/dL Hct 27.8 L (34.0-46.0) % MCHC 30.5 L (31.0-37.0) g/dL RDW 17.3 H (11.5-15.5) % Chloride (98-107) mmol/L Carbon Dioxide (22-30) mmol/L BUN (7-17) mg/dL Creatinine (0.52-1.04) mg/dL Glucose (74-99) mg/dL POC Glucose (mg/dL) 157 H 144 H (70-110) mg/dL Calcium (8.4-10.2) mg/dL Microbiology - Last 24 Hours (Table) 08/23/23 01:25 Blood Culture - Preliminary Blood 08/23/23 14:30 Catheter Tip Culture - Final Catheter Tip Corynebacterium species Assessment and Plan Assessment: 1. Acute kidney injury secondary to ATN secondary to cardiorenal syndrome and cardiac arrest. Creatinine 1.5 admission, stable 2.2 today. Patient was on hemodialysis in the past with last treatment being July 02, 2023. Dialysis catheter was scheduled to be removed but patient still has the permacath. Renal US no hydronephrosis. 2. Volume overload. Improved with diuresis. 3. Acute on chronic diastolic CHF. 4. Diabetes mellitus. 5. Right foot wound. 6. Coronary disease with cardiac stenting. 7. Status post PEA arrest. 8. Septic Shock-urine culture is growing E. coli. Catheter tip culture is growing corynebacterium 9. Metabolic acidosis, nongap Plan: Switch IV fluids to Ringer lactate Continue with oral sodium bicarb Repeat labs in a.m.
[2023-08-26] MEDS: SODIUM BICARBONATE TAB 650 MG TAB PO SCH (22:25)
[2023-08-27 05:00] LABS: Anisocytosis Slight; HCT 28.3 % (34.0-46.0); HGB 8.6 gm/dL (11.4-16.0); Hypochromasia Marked; MCH 28.4 pg (25.0-35.0); MCHC 30.3 g/dL (31.0-37.0); MCV 93.9 fL (80.0-100.0); Mean Platelet Volume 10.5; Platelet Count 200 k/uL (150-450); RBC 3.02 m/uL (3.80-5.40); RDW 17.2 % (11.5-15.5); WBC 8.2 k/uL (3.8-10.6)
[2023-08-27 05:20] LABS: ALT 119 U/L (4-34); AST 32 U/L (14-36); African American GFR (CKD) 27 (>60 ml/min/1.73 sqM); Albumin 2.5 g/dL (3.5-5.0); Alkaline Phosphatase 314 U/L (38-126); Anion Gap 9 mmol/L; Blood Urea Nitrogen 48 mg/dL (7-17); Calcium 8.1 mg/dL (8.4-10.2); Carbon Dioxide 18 mmol/L (22-30); Chloride 114 mmol/L (98-107); Glucose 171 mg/dL (74-99); Non-African American GFR(CKD) 24 (>60 ml/min/1.73 sqM); Potassium 4.7 mmol/L (3.5-5.1); Sodium 141 mmol/L (137-145); Total Bilirubin 0.6 mg/dL (0.2-1.3); Total Protein 5.4 g/dL (6.3-8.2)
--- NOTE | 2023-08-27 07:46 | P.PN ---
Subjective Progress Note Date: 08/27/23 History of Present Illness: The patient is a 57-year-old female with known history of hypertension, hyperl ipidemia, diabetes mellitus as well as a history of coronary disease status post stenting of the RCA and chronic kidney disease who presented with dyspnea and had a cardiopulmonary arrest requiring CPR and mechanical ventilation. She is extubated, complaining of chest wall tenderness post CPR. She continues to be in sinus mechanism and hemodynamically stable. She had some bradycardia earlier and was started on IV dopamine. She is in sinus mechanism with no further bradycardia. Her urinary output has been stable. Her initial echo on presentation showed a preserved systolic function subsequently was found to have cardiomyopathy but that was done shortly after the event. She has a subacute fracture of the medial and lateral malleolus on the right side. August 26: The patient is sedated, she was quite agitated during the night. She had few episodes of sinus bradycardia, brief. She had no evidence of high-grade AV block. Her urinary output is stable. Her blood pressure is under good control without any vasopressors. Her repeat echocardiogram showed a preserved systolic function. She has been evaluated by neurology for possible anoxic encephalopathy. Medications: Aspirin, amlodipine 5 mg daily, Plavix 75 mg daily, insulin, Lipitor 40 mg daily, isosorbide mononitrate 30 mg daily Physical Examination: 57-year-old female, sedated,Blood pressure 131/90, Heart rate 60 Head: Normocephalic. Eyes: Sclerae nonicteric. Neck: Good carotid upstroke, no bruit, no jugular venous distention. Lungs: Clear anteriorly Heart: Regular rate and rhythm, S1-S2, no S3, no rub. No murmur. Abdomen: Soft nontender, positive bowel sounds no organomegaly. Extremities: No edema, intact distal pulses. Cast on the right lower extremity Labs: BUN 48, creatinine 2.2, potassium 4.7, hemoglobin 8.6 Impression: 1. Status post cardiopulmonary arrest, etiology unclear. No clear evidence of acute ischemic event. 2. Status post stenting of the RCA during prior admission 3. Chronic kidney disease 4. Chest wall discomfort 5. History of hyperlipidemia 6. History of hypertension 7. Bradycardia resolved 8. History of diabetes 9. Cardiomyopathy resolved 10. Probable anoxic encephalopathy Plan: 1. Continue present regimen 2. Treatment of confusion per intensive care team 3. Follow renal functions 4. Adjust antihypertensive regimen depending on blood pressure 5. Depending on her progress further recommendations will be made Objective - Vital Signs Vital signs: Vital Signs Temp 98.5 F 08/27/23 04:00 Pulse 57 L 08/27/23 06:00 Resp 12 08/27/23 06:00 BP 131/93 08/27/23 06:00 Pulse Ox 99 08/27/23 06:00 FiO2 40 08/25/23 11:38 Intake & Output 08/26/23 08/27/23 08/27/23 18:59 06:59 18:59 Intake Total 644.360 716.342 50 Output Total 380 275 30 Balance 264.360 441.342 20 Weight 74 kg 76.1 kg Intake: IV 550 600 50 Lactated Ringers 1,000 ml 150 600 50 @ 50 mls/hr IV .Q20H RYLIE Rx#:[id number] Sodium Chloride 0.9% 1, 400 000 ml @ 50 mls/hr IV . Q20H RYLIE Rx#:[id number] Intake, IV Titration 94.360 116.342 Amount Dexmedetomidine/0.9% NaCl 54.360 116.342 (Pmx) 400 mcg In Empty Bag 1 bag @ 0.2 MCG/KG/HR 3.7 mls/hr IV .Q24H RYLIE Rx#:[id number] Sodium Chloride 0.9% 1, 40 000 ml @ 50 mls/hr IV . Q20H RYLIE Rx#:[id number] Output: Urine 380 275 30 Other: Voiding Method Indwelling Catheter Indwelling Catheter ABP, PAP, CO, CI - Last Documented Arterial Blood Pressure 153/58 - Labs CBC & Chem 7: 08/27/23 04:45 08/27/23 04:45 Labs: Abnormal Lab Results - Last 24 Hours (Table) 08/26/23 08/26/23 08/26/23 Range/Units 08:00 08:35 11:56 RBC 3.03 L (3.80-5.40) m/uL Hgb 8.5 L D (11.4-16.0) gm/dL Hct 27.8 L (34.0-46.0) % MCHC 30.5 L (31.0-37.0) g/dL RDW 17.3 H (11.5-15.5) % Chloride 116 H (98-107) mmol/L Carbon Dioxide 17 L (22-30) mmol/L BUN 51 H (7-17) mg/dL Creatinine 2.28 H (0.52-1.04) mg/dL Glucose 138 H (74-99) mg/dL POC Glucose (mg/dL) 157 H (70-110) mg/dL Calcium 7.9 L (8.4-10.2) mg/dL ALT (4-34) U/L Alkaline Phosphatase (38-126) U/L Total Protein (6.3-8.2) g/dL Albumin (3.5-5.0) g/dL 08/26/23 08/27/23 08/27/23 Range/Units 16:59 04:45 04:45 RBC 3.02 L (3.80-5.40) m/uL Hgb 8.6 L (11.4-16.0) gm/dL Hct 28.3 L (34.0-46.0) % MCHC 30.3 L (31.0-37.0) g/dL RDW 17.2 H (11.5-15.5) % Chloride 114 H (98-107) mmol/L Carbon Dioxide 18 L (22-30) mmol/L BUN 48 H (7-17) mg/dL Creatinine 2.22 H (0.52-1.04) mg/dL Glucose 171 H (74-99) mg/dL POC Glucose (mg/dL) 144 H (70-110) mg/dL Calcium 8.1 L (8.4-10.2) mg/dL ALT 119 H (4-34) U/L Alkaline Phosphatase 314 H (38-126) U/L Total Protein 5.4 L (6.3-8.2) g/dL Albumin 2.5 L (3.5-5.0) g/dL Microbiology - Last 24 Hours (Table) 08/23/23 01:25 Blood Culture - Preliminary Blood
--- NOTE | 2023-08-27 07:54 | P.PN ---
Subjective Progress Note Date: 08/26/23 Principal diagnosis: Reason for follow-up is right heel diabetic foot ulcer Patient is a 57-year-old female with a past medical history significant for diabetes mellitus hypertension hyperlipidemia history of renal insufficiency requiring dialysis currently not on dialysis and the patient also have a chronic nonhealing wound to the right heel area, present to the hospital with increasing shortness of breath and swelling concerning for fluid overload.Patient did have a cardiac arrest around 4 AM 08/23/2023 with the patient went into asystole got resuscitated intubated and transferred to the ICU subsequently have another cardiac arrest with PEA rhythm not resuscitated. On today's evaluation that is 08/26/2023,the patient denies any fever or any chills, patient is breathing comfortably on nasal cannula oxygen, the patient denies chest pain shortness of breath and no worsening cough, patient denies abdominal pain, no nausea vomiting or diarrhea. Patient did have white count of 8.6, creatinine is 2.28 urine with E. coli catheter with corynebacterium species Objective - Vital Signs Vital signs: Vital Signs Temp 97.4 F L 08/26/23 12:00 Pulse 57 L 08/26/23 16:00 Resp 16 08/26/23 16:00 BP 121/64 08/26/23 16:00 Pulse Ox 98 08/26/23 16:00 FiO2 40 08/25/23 11:38 Intake & Output 08/25/23 08/26/23 08/26/23 18:59 06:59 18:59 Intake Total 1261.818 507 412.478 Output Total 980 530 245 Balance 281.818 -23 167.478 Weight 74 kg 74 kg Intake: IV 50 190 350 Sodium Chloride 0.9% 1, 50 190 000 ml @ 50 mls/hr IV . Q20H R[facility]IE Rx#:[id number] Sodium Chloride 0.9% 1, 350 000 ml @ 50 mls/hr IV . Q20H RYLIE Rx#:[id number] Intake, IV Titration 843.818 317 62.478 Amount DOPamine DRIP 800 mg In 122.484 Dextrose/Water 1 250ml. bag @ 2.5 MCG/KG/MIN 3. 478 mls/hr IV .Q24H RYLIE Rx#:[id number] Dexmedetomidine/0.9% NaCl 22.478 (Pmx) 400 mcg In Empty Bag 1 bag @ 0.2 MCG/KG/HR 3.7 mls/hr IV .Q24H RYLIE Rx#:[id number] Piperacillin-Tazobactam 3 100 .375 gm In Sodium Chloride 0.9% 100 ml @ 25 mls/hr IVPB Q12H R[facility]IE Rx# :[id number] Sodium Chloride 0.9% 1, 550 317 40 000 ml @ 50 mls/hr IV . Q20H RYLIE Rx#:[id number] propofoL 1,000 mg In 71.334 Empty Bag 1 bag @ 15 MCG/ KG/MIN 6.291 mls/hr IV . [id number] RYLIE Rx#:[id number] Oral 100 Tube Feeding 208 Other 60 Output: Urine 880 530 245 Uretheral ([place]) 65 Emesis 100 Other: Voiding Method Indwelling Catheter Indwelling Catheter Indwelling Catheter ABP, PAP, CO, CI - Last Documented Arterial Blood Pressure 123/51 - Exam GENERAL DESCRIPTION: Middle-aged female intubated on the vent RESPIRATORY SYSTEM: Unlabored breathing , decreased breath sounds at bases HEART: S1 S2 regular rate and rhythm , ABDOMEN: Soft , no tenderness EXTREMITIES: Right heel wound is currently dressed - Labs CBC & Chem 7: 08/27/23 04:45 08/27/23 04:45 Labs: Abnormal Lab Results - Last 24 Hours (Table) 08/25/23 08/26/23 08/26/23 Range/Units 20:09 06:53 08:00 RBC (3.80-5.40) m/uL Hgb (11.4-16.0) gm/dL Hct (34.0-46.0) % MCHC (31.0-37.0) g/dL RDW (11.5-15.5) % Chloride 116 H (98-107) mmol/L Carbon Dioxide 17 L (22-30) mmol/L BUN 51 H (7-17) mg/dL Creatinine 2.28 H (0.52-1.04) mg/dL Glucose 138 H (74-99) mg/dL POC Glucose (mg/dL) 157 H 145 H (70-110) mg/dL Calcium 7.9 L (8.4-10.2) mg/dL 08/26/23 08/26/23 Range/Units 08:35 11:56 RBC 3.03 L (3.80-5.40) m/uL Hgb 8.5 L D (11.4-16.0) gm/dL Hct 27.8 L (34.0-46.0) % MCHC 30.5 L (31.0-37.0) g/dL RDW 17.3 H (11.5-15.5) % Chloride (98-107) mmol/L Carbon Dioxide (22-30) mmol/L BUN (7-17) mg/dL Creatinine (0.52-1.04) mg/dL Glucose (74-99) mg/dL POC Glucose (mg/dL) 157 H (70-110) mg/dL Calcium (8.4-10.2) mg/dL Microbiology - Last 24 Hours (Table) 08/23/23 14:30 Catheter Tip Culture - Final Catheter Tip Corynebacterium species 08/23/23 01:25 Blood Culture - Preliminary Blood Assessment and Plan (1) Pressure ulcer of right heel, stage 3 Current Visit: No Status: Acute Code(s): L89.613 - PRESSURE ULCER OF RIGHT HEEL, STAGE 3 SNOMED Code(s): 95273143535943 (2) Type 2 diabetes mellitus with foot ulcer Current Visit: No Status: Acute Code(s): E11.621 - TYPE 2 DIABETES MELLITUS WITH FOOT ULCER; L97.509 - NON-PRESSURE CHRONIC ULCER OTH PRT UNSP FOOT W UNSP SEVERITY SNOMED Code(s): 753726645 (3) UTI (urinary tract infection) Current Visit: Yes Status: Acute Code(s): N39.0 - URINARY TRACT INFECTION, SITE NOT SPECIFIED SNOMED Code(s): 27644381 (4) Aspiration pneumonia Current Visit: Yes Status: Acute Code(s): J69.0 - PNEUMONITIS DUE TO INHALATION OF FOOD AND VOMIT SNOMED Code(s): 690779542 Plan: 1patient with chronic nonhealing wound to the right heel area which has been there for a couple of months now patient overall wound base looks clean with no slough tissue in the wound is not pulling out the wound more likely a pressure ulcer stage III with evidence of any secondary cellulitis, local wound care has been switched over to the wound VAC to continue management per wound care 2-patient did have cardiac arrest requiring resuscitation in this patient who did have a chest x-ray with a right-sided infiltrate and question of aspiration pneumonia urine culture grew E. coli with some resistant pattern, sputum has been negative blood culture currently pending catheter tip cultures growing corynebacterium species more likely contamination with a blood culture negative no need for vancomycin. 3patient currently covered with Zosyn to continue and monitor clinical course closely Dictation was produced using [employer] dictation software. please excuse any grammatical, word or spelling errors. Time with Patient: Less than 30
--- NOTE | 2023-08-27 10:03 | P.PN ---
Subjective Progress Note Date: 08/27/23 Principal diagnosis: Right heel wound; right ankle bimalleolar fracture Patient was seen at bedside this morning in the ICU lying in semirecumbent position with posterior short leg splint and Tam bandage present over the right lower extremity. Patient seemed to be somewhat groggy and out of it during the encounter. Patient's nurse was present during encounter and mentioned that at bedside this morning they changed dressing over the patient's right heel wound. They stated that wound care should be coming by later today to see the patient. Patient denies any other orthopedic complaints at this time. Objective - Vital Signs Vital signs: Vital Signs Temp 96.2 F L 08/27/23 08:00 Pulse 57 L 08/27/23 09:00 Resp 16 08/27/23 08:00 BP 132/70 08/27/23 09:00 Pulse Ox 96 08/27/23 09:00 FiO2 40 08/25/23 11:38 Intake & Output 08/26/23 08/27/23 08/27/23 18:59 06:59 18:59 Intake Total 644.360 716.342 181.635 Output Total 380 275 100 Balance 264.360 441.342 81.635 Weight 74 kg 76.1 kg Intake: IV 550 600 150 Lactated Ringers 1,000 ml 150 600 150 @ 50 mls/hr IV .Q20H [facility]IE Rx#:[id number] Sodium Chloride 0.9% 1, 400 000 ml @ 50 mls/hr IV . Q20H [facility] Rx#:[id number] Intake, IV Titration 94.360 116.342 31.635 Amount Dexmedetomidine/0.9% NaCl 54.360 116.342 31.635 (Pmx) 400 mcg In Empty Bag 1 bag @ 0.2 MCG/KG/HR 3.7 mls/hr IV .Q24H [facility]YLIE Rx#:[id number] Sodium Chloride 0.9% 1, 40 000 ml @ 50 mls/hr IV . Q20H [facility]IE Rx#:[id number] Output: Urine 380 275 100 Other: Voiding Method Indwelling Catheter Indwelling Catheter ABP, PAP, CO, CI - Last Documented Arterial Blood Pressure 150/59 - Exam Posterior short leg splint present over the right lower extremity. Tam dressing is intact. Patient is able to wiggle digits of right foot. Toes are lukewarm to the touch. Radial pulse intact bilaterally. Cap refill under 3 seconds in digits of upper extremities. - Labs CBC & Chem 7: 08/27/23 04:45 08/27/23 04:45 Labs: Abnormal Lab Results - Last 24 Hours (Table) 08/26/23 08/26/23 08/26/23 Range/Units 08:35 11:56 16:59 RBC (3.80-5.40) m/uL Hgb 8.5 L D (11.4-16.0) gm/dL Hct (34.0-46.0) % MCHC (31.0-37.0) g/dL RDW (11.5-15.5) % Chloride (98-107) mmol/L Carbon Dioxide (22-30) mmol/L BUN (7-17) mg/dL Creatinine (0.52-1.04) mg/dL Glucose (74-99) mg/dL POC Glucose (mg/dL) 157 H 144 H (70-110) mg/dL Calcium (8.4-10.2) mg/dL ALT (4-34) U/L Alkaline Phosphatase (38-126) U/L Total Protein (6.3-8.2) g/dL Albumin (3.5-5.0) g/dL 08/27/23 08/27/23 Range/Units 04:45 04:45 RBC 3.02 L (3.80-5.40) m/uL Hgb 8.6 L (11.4-16.0) gm/dL Hct 28.3 L (34.0-46.0) % MCHC 30.3 L (31.0-37.0) g/dL RDW 17.2 H (11.5-15.5) % Chloride 114 H (98-107) mmol/L Carbon Dioxide 18 L (22-30) mmol/L BUN 48 H (7-17) mg/dL Creatinine 2.22 H (0.52-1.04) mg/dL Glucose 171 H (74-99) mg/dL POC Glucose (mg/dL) (70-110) mg/dL Calcium 8.1 L (8.4-10.2) mg/dL ALT 119 H (4-34) U/L Alkaline Phosphatase 314 H (38-126) U/L Total Protein 5.4 L (6.3-8.2) g/dL Albumin 2.5 L (3.5-5.0) g/dL Microbiology - Last 24 Hours (Table) 08/23/23 01:25 Blood Culture - Preliminary Blood Assessment and Plan Assessment: 1. Fracture, subacute, right ankle medial and lateral malleoli 2. Ulcer, right heel 3. Multiple medical comorbidities Plan: 1. Fracture, subacute, right ankle medial and lateral malleoli; Ulcer, right heel - wound vac present over right heel. xrays right ankle reveal bimalleolar fracture with mortise disruption. I did discuss the findings the imaging and exam with my attending, Dr. Kent. At this time we are recommending patient be nonweightbearing to the right lower extremity. posterior short leg splint present to the right lower extremity. We are not recommending any emergent/urgent orthopedic surgical intervention at this time. Once patient is stable medically, patient will likely need surgical intervention for her subacute right ankle fracture which may consist of an ankle arthrodesis vs other salvage procedures that would likely need to be performed by a traumatologist or foot and ankle specialist. Patient to remain nonweightbearing to the right lower extremity. we will be available as needed to see patient. 2. Appreciate medical, cardiology, wound care management 3. Pain management - gabapentin; Foristell; Tylenol 4. DVT prophylaxis - aspirin; Plavix; heparin 5. GI prophylaxis recs 6. PT/OT - nonweightbearing right lower extremity. Weight-bear as tolerated left lower extremity with walker and assistance as needed 7. Encourage incentive spirometer use Time with Patient: Less than 30
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
--- NOTE | 2023-08-27 10:47 | P.PN ---
Subjective Patient is seen for follow-up for acute kidney injury. She is confused. Started on Precedex. Serum creatinine staying at 2.2. Maintained on IV fluids at 50 cc an hour. Objective - Vital Signs Vital signs: Vital Signs Temp 96.2 F L 08/27/23 08:00 Pulse 57 L 08/27/23 09:00 Resp 16 08/27/23 08:00 BP 132/70 08/27/23 09:00 Pulse Ox 96 08/27/23 09:00 FiO2 40 08/25/23 11:38 Intake & Output 08/26/23 08/27/23 08/27/23 18:59 06:59 18:59 Intake Total 644.360 716.342 291.635 Output Total 380 275 130 Balance 264.360 441.342 161.635 Weight 74 kg 76.1 kg Intake: IV 550 600 200 Lactated Ringers 1,000 ml 150 600 200 @ 50 mls/hr IV .Q20H RYLIE Rx#:[id number] Sodium Chloride 0.9% 1, 400 000 ml @ 50 mls/hr IV . Q20H R[facility]IE Rx#:[id number] Intake, IV Titration 94.360 116.342 31.635 Amount Dexmedetomidine/0.9% NaCl 54.360 116.342 31.635 (Pmx) 400 mcg In Empty Bag 1 bag @ 0.2 MCG/KG/HR 3.7 mls/hr IV .Q24H RYLIE Rx#:[id number] Sodium Chloride 0.9% 1, 40 000 ml @ 50 mls/hr IV . Q20H RYLIE Rx#:[id number] Oral 60 Output: Urine 380 275 130 Other: Voiding Method Indwelling Catheter Indwelling Catheter ABP, PAP, CO, CI - Last Documented Arterial Blood Pressure 150/59 - Exam Patient is awake. She is comfortable. Confused Examination of the heart S1 and S2 Examination of the lungs bilateral breath sounds are heard Abdomen is soft nontender Examination of lower extremities shows 1+ edema - Labs CBC & Chem 7: 08/27/23 04:45 08/27/23 04:45 Labs: Abnormal Lab Results - Last 24 Hours (Table) 08/26/23 08/26/23 08/27/23 Range/Units 11:56 16:59 04:45 RBC (3.80-5.40) m/uL Hgb (11.4-16.0) gm/dL Hct (34.0-46.0) % MCHC (31.0-37.0) g/dL RDW (11.5-15.5) % Chloride 114 H (98-107) mmol/L Carbon Dioxide 18 L (22-30) mmol/L BUN 48 H (7-17) mg/dL Creatinine 2.22 H (0.52-1.04) mg/dL Glucose 171 H (74-99) mg/dL POC Glucose (mg/dL) 157 H 144 H (70-110) mg/dL Calcium 8.1 L (8.4-10.2) mg/dL ALT 119 H (4-34) U/L Alkaline Phosphatase 314 H (38-126) U/L Total Protein 5.4 L (6.3-8.2) g/dL Albumin 2.5 L (3.5-5.0) g/dL 08/27/23 Range/Units 04:45 RBC 3.02 L (3.80-5.40) m/uL Hgb 8.6 L (11.4-16.0) gm/dL Hct 28.3 L (34.0-46.0) % MCHC 30.3 L (31.0-37.0) g/dL RDW 17.2 H (11.5-15.5) % Chloride (98-107) mmol/L Carbon Dioxide (22-30) mmol/L BUN (7-17) mg/dL Creatinine (0.52-1.04) mg/dL Glucose (74-99) mg/dL POC Glucose (mg/dL) (70-110) mg/dL Calcium (8.4-10.2) mg/dL ALT (4-34) U/L Alkaline Phosphatase (38-126) U/L Total Protein (6.3-8.2) g/dL Albumin (3.5-5.0) g/dL Microbiology - Last 24 Hours (Table) 08/23/23 01:25 Blood Culture - Preliminary Blood Assessment and Plan Assessment: 1. Acute kidney injury secondary to ATN secondary to cardiorenal syndrome and cardiac arrest. Creatinine 1.5 admission, stable 2.2 today. Patient was on hemodialysis in the past with last treatment being July 02, 2023. Dialysis catheter it is now removed. Renal US no hydronephrosis. 2. Volume overload. Improved with diuresis. 3. Acute on chronic diastolic CHF. 4. Diabetes mellitus. 5. Right foot wound. 6. Coronary disease with cardiac stenting. 7. Status post PEA arrest. 8. Septic Shock-urine culture is growing E. coli. Catheter tip culture is growing corynebacterium 9. Metabolic acidosis, nongap Plan: DC IV fluids Continue with oral sodium bicarb Repeat labs in a.m.
[2023-08-27 11:13] LABS: Glucose,Whole Blood 171 mg/dL (70-110)
--- NOTE | 2023-08-27 12:31 | P.PN ---
Subjective Progress Note Date: 08/27/23 57-year-old female came in with complaints of shortness of breath and orthopnea found to be in congestive heart failure exacerbation patient has congestive heart failure with reduced ejection fraction in the past patient has increasing pedal edema. Patient also has an ulcer in the right foot stage III-IV which appeared to be infected we will consult wound care and infectious disease. Patient was on hemodialysis during last hospitalization her creatinine presently is 1.5 which is significantly improved patient potassium is 5.5, patient is on Entresto and Aldactone Aldactone will be held Entresto will be continued since she is receiving IV Lasix and expecting her potassium to improve if it does not improve or get worse then Entresto need to be discontinued as well. Patient has hypervolemic hyponatremia and hyperglycemia. 08/21/2023 Was evaluated today on the medical floor. Patient was continued on IV Lasix overnight however she was no longer reporting any shortness of breath and her lower extremity edema has improved. She was taken off of the Lasix at this time due to increased creatinine up to 2.31 additionally potassium remains elevated at 5.7. Echocardiogram comes back showing an improved ejection fraction of 60 to 65% because of this and also the hyperkalemia patient will not be continued on entresto. Patient was evaluated by infectious disease who felt like that heel ulcer on the right side was more likely a pressure injury stage III and is recommending local wound care to continue with Aquacel. Patient is reporting significant pain to the right foot and feels like it is fractured. Upon review of the patient's chart she did have a x-ray completed of this 12 days ago ordered by her service worker Dr. Mayen. Ankle x-ray did review a mildly displaced acute distal fibular fracture. Repeat x-ray of the foot and ankle completed today does reveal a subacute fractures of the medial and lateral malleolus. The lateral malleolus fracture was seen on the patient's prior exam the medial malleolus fracture may be new in the interval and this would be considered an unstable ankle fracture. There is interval 6 mm displacement of the lateral malleolus. There is a deep soft tissue ulcer at the plantar heel with no clear radiographic findings of a contagious osteomyelitis at this time. Orthooedics was consulted for this. 08/22/2023 Patient evaluated in follow-up today resting in bed. She was taken off of the Lasix remains off at this time. Bladder scan was requested and not done yesterday to rule out urinary retention, creatinine today is increased up to 2.56. Bladder scan was done require urinary straight catheterization of 550 mL taken out. Urinalysis was sent which is significantly abnormal. Patient is also noted to have multiple genital lesions which appear wartlike she admits to not having any routine gynecological screenings for many years. She is not having any vaginal bleeding or discharge. Renal ultrasound has been ordered to rule out any obstructive uropathy. 08/23/2023 Patient is evaluated today in follow-up patient had a cardiac event with cardiac arrest speech and language clinician around 445 AM with initial rhythm slowing asystole patient was started on CPR with ACS protocol patient did receive ROSC after 6 to 8 minutes and was transferred to the intensive care unit. Patient upon arrival to the intensive care unit had another episode of cardiac arrest patient had bradycardia while on pressors in the ICU patient was intubated following the first cardiac arrest and is currently on the mechanical ventilator 50% FiO2. Chest x-ray showing similar interstitial and patchy component airspace disease right greater than left. There is a possible trace left pleural effusion. A brain CT which shows no acute intracranial process. Blood work today shows a white blood cell count of 13.8, hemoglobin 9.5, sodium level of 135, BUN of 62, creatinine of 2.76. AST ALT and alk phosphatase are significantly elevated consistent with a shock liver. TSH 3.310. Urinalysis is abnormal. Her urine culture is showing gram-negative bacilli patient is covered for the urinary tract infection as well as aspiration with IV Zosyn being managed by infectious disease. Patient is currently sedated with propofol and did require vasopressor support with Levophed which has been weaned at this time. Will discontinue the gabapentin patient is continued on aspirin Plavix and statin has been placed on hold. There is concern for possible arrhythmia precipitating the asystole additionally we need to rule out embolism and a D-dimer has been ordered. 08/24/2023 Patient is seen in follow-up today continues in the ICU on mechanical ventilation. FiO2 is 50% although titrating and was just placed at 40% with a PEEP of 5. Chest x-ray today shows that the ET tube is 7 mm from the sonam suggesting a pulled back 2 cm and reassess and also suspected underlying vascular congestion. Neuro is following and per nursing staff patient is following some simple commands and undergoing sedation holidays. Patient noted to have reduced EF of 30 to 35% and cardiology had been following. Will reconsult and appreciate input and recommendations. patient did have dialysis catheter removed and sent for cultures which are pending. Infectious disease following and patient is maintained on antibiotic. D-dimer is elevated above 16 and will attempt to obtain a VQ scan.57-year-old female came in with complaints of shortness of breath and orthopnea found to be in congestive heart failure exacerbation patient has congestive heart failure with reduced ejection fraction in the past patient has increasing pedal edema. Patient also has an ulcer in the right foot stage III-IV which appeared to be infected we will consult wound care and infectious disease. Patient was on hemodialysis during last hospitalization her creatinine presently is 1.5 which is significantly improved patient potassium is 5.5, patient is on Entresto and Aldactone Aldactone will be held Entresto will be continued since she is receiving IV Lasix and expecting her potassium to improve if it does not improve or get worse then Entresto need to be discontinued as well. Patient has hypervolemic hyponatremia and hyperglycemia. 08/21/2023 Was evaluated today on the medical floor. Patient was continued on IV Lasix overnight however she was no longer reporting any shortness of breath and her lower extremity edema has improved. She was taken off of the Lasix at this time due to increased creatinine up to 2.31 additionally potassium remains elevated at 5.7. Echocardiogram comes back showing an improved ejection fraction of 60 to 65% because of this and also the hyperkalemia patient will not be continued on entresto. Patient was evaluated by infectious disease who felt like that heel ulcer on the right side was more likely a pressure injury stage III and is recommending local wound care to continue with Aquacel. Patient is reporting significant pain to the right foot and feels like it is fractured. Upon review of the patient's chart she did have a x-ray completed of this 12 days ago ordered by her service worker Dr. Mayen. Ankle x-ray did review a mildly displaced acute distal fibular fracture. Repeat x-ray of the foot and ankle completed today does reveal a subacute fractures of the medial and lateral malleolus. The lateral malleolus fracture was seen on the patient's prior exam the medial malleolus fracture may be new in the interval and this would be considered an unstable ankle fracture. There is interval 6 mm displacement of the lateral malleolus. There is a deep soft tissue ulcer at the plantar heel with no clear radiographic findings of a contagious osteomyelitis at this time. Orthooedics was consulted for this. 08/22/2023 Patient evaluated in follow-up today resting in bed. She was taken off of the Lasix remains off at this time. Bladder scan was requested and not done yesterday to rule out urinary retention, creatinine today is increased up to 2.56. Bladder scan was done require urinary straight catheterization of 550 mL taken out. Urinalysis was sent which is significantly abnormal. Patient is also noted to have multiple genital lesions which appear wartlike she admits to not having any routine gynecological screenings for many years. She is not having any vaginal bleeding or discharge. Renal ultrasound has been ordered to rule out any obstructive uropathy. 08/23/2023 Patient is evaluated today in follow-up patient had a cardiac event with cardiac arrest speech and language clinician around 445 AM with initial rhythm slowing asystole patient was started on CPR with ACS protocol patient did receive ROSC after 6 to 8 minutes and was transferred to the intensive care unit. Patient upon arrival to the intensive care unit had another episode of cardiac arrest patient had bradycardia while on pressors in the ICU patient was intubated following the first cardiac arrest and is currently on the mechanical ventilator 50% FiO2. Chest x-ray showing similar interstitial and patchy component airspace disease right greater than left. There is a possible trace left pleural effusion. A brain CT which shows no acute intracranial process. Blood work today shows a white blood cell count of 13.8, hemoglobin 9.5, sodium level of 135, BUN of 62, creatinine of 2.76. AST ALT and alk phosphatase are significantly elevated consistent with a shock liver. TSH 3.310. Urinalysis is abnormal. Her urine culture is showing gram-negative bacilli patient is covered for the urinary tract infection as well as aspiration with IV Zosyn being managed by infectious disease. Patient is currently sedated with propofol and did require vasopressor support with Levophed which has been weaned at this time. Will discontinue the gabapentin patient is continued on aspirin Plavix and statin has been placed on hold. There is concern for possible arrhythmia precipitating the asystole additionally we need to rule out embolism and a D-dimer has been ordered. 08/24/2023 Patient is seen in follow-up today continues in the ICU on mechanical ventilat ion. FiO2 is 50% although titrating and was just placed at 40% with a PEEP of 5. Chest x-ray today shows that the ET tube is 7 mm from the sonam suggesting a pulled back 2 cm and reassess and also suspected underlying vascular congestion. Neuro is following and per nursing staff patient is following some simple commands and undergoing sedation holidays. Patient noted to have reduced EF of 30 to 35% and cardiology had been following. Will reconsult and appreciate input and recommendations. patient did have dialysis catheter removed and sent for cultures which are pending. Infectious disease following and patient is maintained on antibiotic. D-dimer is elevated above 16 and will attempt to obtain a VQ scan. 08/25/23 : Patient seen and evaluated at bedside, patient extubated around noon, transition to 5 L of oxygen to nasal cannula. Family at bedside, blood work reviewed hemoglobin 10.3, serum chemistry reviewed sodium 140 potassium 4.8 BUN 57 creatinine 2.49 calcium of 7. 08/26/23 : Patient seen and evaluated at bedside, patient remains in medical ICU, does complain of chest pain from CPR. Patient has been weaned off dopamine, cardiology following, blood work reviewed, hemoglobin 8.5 platelet count of 217, serum chemistry shows sodium 141 BUN 51 creatinine 2.28. Followed up by nephrology as well MARYLOU secondary to ATN continue to monitor intake and output 08/27/23: Patient seen and evaluated bedside, on evaluation patient is disoriented, patient is drowsy however likely having acute delirium. Seen by cardiology echocardiogram shows preserved ejection fraction continue with current medical management, patient on Precedex for acute delirium, continue to remain on oxygen supplementation with nasal cannula blood work reviewed CBC showed WBC 8.2 hemoglobin 8.6 serum chemistry showed creatinine of 2.22. Patient remains delirious, daughter at bedside all questions answered PHYSICAL EXAMINATION: GENERAL: The patient is alert to situation, drowsy easily arousable, nasal cannula in place HEENT: Pupils are round and equally reacting to light. EOMI. CARDIOVASCULAR: S1 and S2 present. No murmurs, rubs, or gallops. PULMONARY: Decreased breath sounds bilaterally ABDOMEN: Soft, nontender, nondistended, normoactive bowel sounds. No palpable organomegaly. MUSCULOSKELETAL: No joint swelling or deformity. EXTREMITIES: No cyanosis, clubbing, bilateral pedal edema NEUROLOGICAL: pupils reactive unable to assess sedated SKIN: Patient has right plantar surface ulcer on the posterior foot stage III-IV with areas of necrotic tissue Assessment and plan * Asystole/cardiopulmonary arrest x 2 with CPR/ROSC * Respiratory failure requiring intubation s/p extubation 08/25/2023 * Acute metabolic encephalopathy * Congestive heart failure with systolic dysfunction acute on chronic exacerbation * Ischemic cardiomyopathy with improved EF * Acute kidney injury secondary to ATN on chronic kidney disease stage III * Urinary tract infection with E. coli * Subacute fracture of the medial and lateral malleolus, orthopedics following * Right heel stage III pressure injury continue local wound care with aquacel ID following. * Genital lesions, will need latrine cleaner follow up outpatient for routine screenings * Hypertension * Hyperlipidemia * Type 2 diabetes mellitus uncontrolled hgb a1c 12.1 * Severe pulmonary hypertension * COPD without any acute exacerbation * Peripheral neuropathy * Patient continues to remain critically ill, was intubated s/p extubation, weaned off to nasal cannula 3 L * In regards to acute encephalopathy likely post ICU delirium, neurology was consulted continue with frequent reorientation * In regards to urinary tract infection, chronic nonhealing wound and right heel, urine cultures grew E. coli. Patient treated with IV antibiotic received IV Zosyn * In regards to aspiration pneumonia,, continue patient on IV Zosyn managed by infectious disease * In regards to cardiomyopathy patient weaned off pressor support, dopamine weaned off as well, continue current medications including aspirin, Plavix, cardiology following * In regards to suspicion for pulm embolism venous ultrasound lower extremity ordered no evidence of DVT noted * In regards to diabetes mellitus continue patient on Accu-Cheks, continue correctional insulin Objective - Vital Signs Vital signs: Vital Signs Temp 96.2 F L 08/27/23 08:00 Pulse 57 L 08/27/23 09:00 Resp 16 08/27/23 08:00 BP 132/70 08/27/23 09:00 Pulse Ox 96 08/27/23 09:00 FiO2 40 08/25/23 11:38 Intake & Output 08/26/23 08/27/23 08/27/23 18:59 06:59 18:59 Intake Total 644.360 716.342 181.635 Output Total 380 275 100 Balance 264.360 441.342 81.635 Weight 74 kg 76.1 kg Intake: IV 550 600 150 Lactated Ringers 1,000 ml 150 600 150 @ 50 mls/hr IV .Q20H RYLIE Rx#:[id number] Sodium Chloride 0.9% 1, 400 000 ml @ 50 mls/hr IV . Q20H RYLIE Rx#:[id number] Intake, IV Titration 94.360 116.342 31.635 Amount Dexmedetomidine/0.9% NaCl 54.360 116.342 31.635 (Pmx) 400 mcg In Empty Bag 1 bag @ 0.2 MCG/KG/HR 3.7 mls/hr IV .Q24H RYLIE Rx#:[id number] Sodium Chloride 0.9% 1, 40 000 ml @ 50 mls/hr IV . Q20H RYLIE Rx#:[id number] Output: Urine 380 275 100 Other: Voiding Method Indwelling Catheter Indwelling Catheter ABP, PAP, CO, CI - Last Documented Arterial Blood Pressure 150/59 - Labs CBC & Chem 7: 08/27/23 04:45 08/27/23 04:45 Labs: Abnormal Lab Results - Last 24 Hours (Table) 08/26/23 08/26/23 08/27/23 Range/Units 11:56 16:59 04:45 RBC (3.80-5.40) m/uL Hgb (11.4-16.0) gm/dL Hct (34.0-46.0) % MCHC (31.0-37.0) g/dL RDW (11.5-15.5) % Chloride 114 H (98-107) mmol/L Carbon Dioxide 18 L (22-30) mmol/L BUN 48 H (7-17) mg/dL Creatinine 2.22 H (0.52-1.04) mg/dL Glucose 171 H (74-99) mg/dL POC Glucose (mg/dL) 157 H 144 H (70-110) mg/dL Calcium 8.1 L (8.4-10.2) mg/dL ALT 119 H (4-34) U/L Alkaline Phosphatase 314 H (38-126) U/L Total Protein 5.4 L (6.3-8.2) g/dL Albumin 2.5 L (3.5-5.0) g/dL 08/27/23 Range/Units 04:45 RBC 3.02 L (3.80-5.40) m/uL Hgb 8.6 L (11.4-16.0) gm/dL Hct 28.3 L (34.0-46.0) % MCHC 30.3 L (31.0-37.0) g/dL RDW 17.2 H (11.5-15.5) % Chloride (98-107) mmol/L Carbon Dioxide (22-30) mmol/L BUN (7-17) mg/dL Creatinine (0.52-1.04) mg/dL Glucose (74-99) mg/dL POC Glucose (mg/dL) (70-110) mg/dL Calcium (8.4-10.2) mg/dL ALT (4-34) U/L Alkaline Phosphatase (38-126) U/L Total Protein (6.3-8.2) g/dL Albumin (3.5-5.0) g/dL Microbiology - Last 24 Hours (Table) 08/23/23 01:25 Blood Culture - Preliminary Blood
--- NOTE | 2023-08-27 12:41 | P.PN ---
Subjective Progress Note Date: 08/27/23 This is a 57-year-old patient known to the wound care center with a diabetic foot ulcer Perkins grade 3 to the right calcaneus. Patient has a stage II pressure ulcer. History of neuropathy and diabetes. Patient was ordered a negative pressure wound VAC but due to insurance we have not been able to get 1. We have been utilizing collagen to the site at this time. Original cause of wound was Gradually Appeared. The date acquired was: 04/29/2023. The wound has been in treatment 8 weeks. The wound is currently classified as a Grade 2 wound with etiology of Diabetic Wound/Ulcer of the Lower Extremity and is located on the Right Calcaneus. The wound measures 3.2cm length x 1.6cm width x 0.6cm de pth; 4.021cm^2 area and 2.413cm^3 volume. There is a large amount of serous drainage noted. Patient has a nondisplaced fracture to the right ankle Review Of Systems: Constitutional: No fever, no chills, no night sweats. No weight change. No weakness, fatigue or lethargy. No daytime sleepiness. Integumentary:reports wounds, no lesions. No rash or pruritus. No unusual bruising. No change in hair or nails. Physical exam: General Appearance: Alert, cooperative, no distress, appears stated age. Skin: See HPI all other Skin color, texture, tugor normal, no rashes or lesions. Neurologic: Alert oriented x3 Assessment: 1. Stage II pressure ulcer right calcaneus 2. Diabetic foot ulceration Perkins grade 3 Plan: 1. Apply absorptive silver bordered foam. May remove the soft cast for dr martel changes. Reapply. Change Saturday. Thank you for the consultation any questions please contact the wound care center DNP note has been reviewed and discussed with Dr. Chavez and the impression and plan of care has been directed as dictated. Objective - Vital Signs Vital signs: Vital Signs Temp 96.2 F L 08/27/23 08:00 Pulse 57 L 08/27/23 09:00 Resp 16 08/27/23 08:00 BP 132/70 08/27/23 09:00 Pulse Ox 96 08/27/23 09:00 FiO2 40 08/25/23 11:38 Intake & Output 08/26/23 08/27/23 08/27/23 18:59 06:59 18:59 Intake Total 644.360 716.342 341.635 Output Total 380 275 152 Balance 264.360 441.342 189.635 Weight 74 kg 76.1 kg Intake: IV 550 600 250 Lactated Ringers 1,000 ml 150 600 250 @ 50 mls/hr IV .Q20H RYLIE Rx#:[id number] Sodium Chloride 0.9% 1, 400 000 ml @ 50 mls/hr IV . Q20H RYLIE Rx#:[id number] Intake, IV Titration 94.360 116.342 31.635 Amount Dexmedetomidine/0.9% NaCl 54.360 116.342 31.635 (Pmx) 400 mcg In Empty Bag 1 bag @ 0.2 MCG/KG/HR 3.7 mls/hr IV .Q24H RYLIE Rx#:[id number] Sodium Chloride 0.9% 1, 40 000 ml @ 50 mls/hr IV . Q20H RYLIE Rx#:[id number] Oral 60 Output: Urine 380 275 152 Other: Voiding Method Indwelling Catheter Indwelling Catheter ABP, PAP, CO, CI - Last Documented Arterial Blood Pressure 150/59 - Labs CBC & Chem 7: 08/27/23 04:45 08/27/23 04:45 Labs: Abnormal Lab Results - Last 24 Hours (Table) 08/26/23 08/27/23 08/27/23 Range/Units 16:59 04:45 04:45 RBC 3.02 L (3.80-5.40) m/uL Hgb 8.6 L (11.4-16.0) gm/dL Hct 28.3 L (34.0-46.0) % MCHC 30.3 L (31.0-37.0) g/dL RDW 17.2 H (11.5-15.5) % Chloride 114 H (98-107) mmol/L Carbon Dioxide 18 L (22-30) mmol/L BUN 48 H (7-17) mg/dL Creatinine 2.22 H (0.52-1.04) mg/dL Glucose 171 H (74-99) mg/dL POC Glucose (mg/dL) 144 H (70-110) mg/dL Calcium 8.1 L (8.4-10.2) mg/dL ALT 119 H (4-34) U/L Alkaline Phosphatase 314 H (38-126) U/L Total Protein 5.4 L (6.3-8.2) g/dL Albumin 2.5 L (3.5-5.0) g/dL 08/27/23 Range/Units 11:11 RBC (3.80-5.40) m/uL Hgb (11.4-16.0) gm/dL Hct (34.0-46.0) % MCHC (31.0-37.0) g/dL RDW (11.5-15.5) % Chloride (98-107) mmol/L Carbon Dioxide (22-30) mmol/L BUN (7-17) mg/dL Creatinine (0.52-1.04) mg/dL Glucose (74-99) mg/dL POC Glucose (mg/dL) 171 H (70-110) mg/dL Calcium (8.4-10.2) mg/dL ALT (4-34) U/L Alkaline Phosphatase (38-126) U/L Total Protein (6.3-8.2) g/dL Albumin (3.5-5.0) g/dL Microbiology - Last 24 Hours (Table) 08/23/23 01:25 Blood Culture - Preliminary Blood Assessment and Plan (1) Pressure ulcer of right heel, stage 2 Current Visit: Yes Status: Acute Code(s): L89.612 - PRESSURE ULCER OF RIGHT HEEL, STAGE 2 SNOMED Code(s): 57800645646888 (2) Type 2 diabetes mellitus with diabetic neuropathic arthropathy Current Visit: No Status: Acute Code(s): E11.610 - TYPE 2 DIABETES MELLITUS W DIABETIC NEUROPATHIC ARTHROPATHY SNOMED Code(s): 464294785080 (3) Type 2 diabetes mellitus with foot ulcer Current Visit: No Status: Acute Code(s): E11.621 - TYPE 2 DIABETES MELLITUS WITH FOOT ULCER; L97.509 - NON-PRESSURE CHRONIC ULCER OTH PRT UNSP FOOT W UNSP SEVERITY SNOMED Code(s): 091192992
--- NOTE | 2023-08-27 13:06 | P.PN ---
Subjective Progress Note Date: 08/27/23 Pulmonary consult dated August 23, 2023. This is a 57-year-old female who was admitted back on August 18, for a right heel wound. Early this morning, the patient had a cardiopulmonary arrest. The patient apparently was initially found to be bradycardic, and then had asystole. She received 3 rounds of epinephrine. She arrived to the intensive care unit this morning at 630, having been intubated on the floor by anesthesia. In the ICU, the patient had an episode of pulseless electrical activity, and asystole, and received 2 rounds of epinephrine, a dose of atropine, and some sodium bicarbonate. I came into the intensive care unit this morning, early, to place a left internal jugular triple-lumen catheter, and a right femoral arterial line. Currently, the patient is on volume assist-control, rate 16, tidal volume 400, FiO2 50%, PEEP of 5. The most recent blood gases show pO2 of 75, pCO2 49, pH is 7.44. Arterial blood gases shortly after intubation showed a pO2 of 268, pCO2 of 38, and a pH of 7.25. The patient is currently on norepinephrine at 1.4 mcg/min, and saline at 50 cc an hour. Current labs include a white count 13.8, hemoglobin 9.5, hematocrit 31, and a platelet count of 257,000. PT was 12.9 with an INR of 1.2. Sodium 135, potassium 4.9, chlorides 111, CO2 19, anion gap 5, BUN 62, creatinine 2.76. The patient's AST is 468. ALT is 286. Albumin is 2.1. Urine, is suspicious for possible infection. Brain CT Today, Shows No Acute Intracranial Process. Chest x-ray shows bilateral patchy airspace disease, right greater than left. Progress note dated August 24, 2023. The patient is seen today in the intensive care unit, room 255. The patient remains on the mechanical ventilator. Current settings include volume assist- control, rate 16, tidal volume 400, FiO2 50%, PEEP of 5. The tidal volume will be dropped down to 350, and the FiO2 will be dropped down to 40%, current blood gases show pO2 132, pCO2 34, pH is 7.37. The patient continues on 0.9 at 50 cc an hour, propofol at 20 mcg/kg/min, and vital 1.2 at 10 cc an hour, with a goal of 48. The patient is discovered to have gram-negative bacilli in the urine. She continues on Zosyn. White count 9, hemoglobin 9.6, hematocrit 30.1, platelet count 242,000. Sodium 138, potassium 4.7, chloride 113, CO2 18, BUN 63, and creatinine 2.65. Anion gap is 7. The patient's AST is 199, ALT is 235. Troponin is 0.565. Albumin is 2.0. The gram-negative bacilli in the urine was discovered to be Escherichia coli. Chest x-ray shows an endotracheal tube that is too low in the trachea, and should be pulled back. In addition, there is evidence of underlying vascular congestion, and/or infiltrates. Progress note dated August 25, 2023. 57-year-old female seen again in room 255. The patient remains on mechanical ventilator. She is on volume assist-control, rate 16, tidal volume 350, FiO2 40%, PEEP of 5. Blood gases show a pO2 of 95, pCO2 of 39, pH is 7.31. The patient is getting propofol 35 mcg/kg/min, saline at 50 cc an hour, and dopamine at 2.5 mcg/kg/min. The patient continues on Zosyn for Escherichia coli. The patient did develop some bradycardia, overnight, which required her to be on do pamine. We are going to order some Dopplers of the lower extremities. In addition, we will do a daily interruption of sedation, and a spontaneous breathing trial. Count is 10.5, hemoglobin 10.3, hematocrit 32.7, platelet count 314,000. Sodium 140, potassium 4.8, chlorides 113, CO2 18, BUN 57, cr eatinine 2.49. Glucose is 142. Magnesium is 2.1, calcium is 7.0. The patient's urine specimen from August 21, revealed Escherichia coli. Dopplers of the lower extremities were negative. Chest x-ray shows some patchy bilateral infiltrates, more left-sided than right-sided. On today's evaluation of 08/26/2023, the patient is being seen for a follow-up. The patient is post cardiopulmonary arrest that occurred on 08/23/2023 and the patient return of spontaneous circulation. Subsequently, the patient was extubated on 08/25/2023. The patient is currently on 4 L of oxygen by nasal cannula. The patient remains encephalopathic. At times, restless in bed and somewhat agitated. Based on that, made recommendations to start the patient on Precedex at the low-dose to control her restlessness and agitation. She is also noted to have a right ankle fracture and a chronic nonhealing heel ulcer, stage [place]. She was also found to have an E. coli in her urine possibly underlying urine tract infection on 08/22/2023. On today's evaluation, the patient is on 40s of oxygen by nasal cannula. Chest x-ray showing cardiomegaly and the patient has a left subclavian triple-lumen catheter in place. Hemodynamically stable on no pressors. WBC count of 8.6 with a hemoglobin 8.5 and a platelet count of 217. BUN is 51 with a creatinine of 2.28 and a sodium level is at 141 and a bicarb level is at 17. The patient is moving all 4 extremities without any limitation. The patient is currently afebrile. Nephrology is on the case regarding MARYLOU which is probably secondary to ATN and has creatinine is being monitored. Fluid balance over the past 24 hours has been 250 cc positive and the patient shows no signs of any significant fluid overload. The patient is currently on IV Zosyn regarding the possibility of an aspiration/E. coli urinary tract infection and is stage III right heel wound. She remains on bronchodilators. She is on no pressors for now. No other significant events overnight. As mentioned, she was extubated yesterday and the chest x-ray shows distal stable left-sided pleural effusion. The echocardiogram that was done on 08/20/2023 showed a preserved left ventricular ejection fraction, no significant valvular abnormalities. The patient also had Doppler of the lower extremity on 08/25/2023 that revealed no evidence of any DVT. There was a prominent lymph node in the right groin measuring 2.6 cm in size. The patient did have a catheter in her right IJ at the time of admission that was removed and the cultures came back positive for corynebacterium. On today's evaluation of 08/27/2023, the patient is being seen for a follow-up. Patient is postcardiac arrest and the patient is having some signs of anoxic encephalopathy. She was restless and confused and somewhat agitated. Based on that, the patient was started on Precedex yesterday and Precedex is running at 0.4 mcg/kg/h. No significant agitation at this point in time. She seems to be calm and comfortable. She follows occasional simple commands. No agitation. No focal neurological deficits. She is currently on 2 L of oxygen nasal cannula and she is also on lactated Ringer at rate of 50 cc an hour. Urine output is in order of 30 cc an hour. Overall fluid balance has been +700 cc over the past 24 hours. The blood work shows a WC count of 8.2 with a hemoglobin 8.6 and a platelet count of 200, BUN is at 48 with a creatinine of 2.22 and a sodium level of 141. The serum bicarb level is at 18. A repeat limited echocardiogram was done yesterday and the patient showed improvement and in the LV function and the patient ejection fraction is in order of 55 to 60% without any significant segmental wall motion abnormalities. The patient is afebrile. The patient is hemodynamically stable at this point in time. Nephrology on the case regarding her chronic renal failure. Objective - Vital Signs Vital signs: Vital Signs Temp 96.2 F L 08/27/23 08:00 Pulse 57 L 08/27/23 09:00 Resp 16 08/27/23 08:00 BP 132/70 08/27/23 09:00 Pulse Ox 96 08/27/23 09:00 FiO2 40 08/25/23 11:38 Intake & Output 08/26/23 08/27/23 08/27/23 18:59 06:59 18:59 Intake Total 644.360 716.342 181.635 Output Total 380 275 100 Balance 264.360 441.342 81.635 Weight 74 kg 76.1 kg Intake: IV 550 600 150 Lactated Ringers 1,000 ml 150 600 150 @ 50 mls/hr IV .Q20H [facility] Rx#:[id number] Sodium Chloride 0.9% 1, 400 000 ml @ 50 mls/hr IV . Q20H [facility] Rx#:[id number] Intake, IV Titration 94.360 116.342 31.635 Amount Dexmedetomidine/0.9% NaCl 54.360 116.342 31.635 (Pmx) 400 mcg In Empty Bag 1 bag @ 0.2 MCG/KG/HR 3.7 mls/hr IV .Q24H [facility] Rx#:[id number] Sodium Chloride 0.9% 1, 40 000 ml @ 50 mls/hr IV . Q20H [facility] Rx#:[id number] Output: Urine 380 275 100 Other: Voiding Method Indwelling Catheter Indwelling Catheter ABP, PAP, CO, CI - Last Documented Arterial Blood Pressure 150/59 - Exam No acute distress, calm and comfortable on 4 L of oxygen by nasal cannula, restless in bed, has some degree of encephalopathy. Head exam was generally normal. There was no scleral icterus or corneal arcus. Mucous membranes were moist. HEENT examination is grossly unremarkable. Neck supple. Full range of motion. No adenopathy thyromegaly or neck vein distention. Cardiovascular examination reveals regular rhythm rate. S1-S2 normal. No S3 or S4. No discernible murmur noted. Heart sounds are distant. Lungs reveal scattered bilateral rhonchi. No wheezes or crackles. Breath sounds equal bilaterally. Abdomen soft without bowel sounds. Extremities are intact. No cyanosis clubbing or edema. The patient has a soft splint in her right lower extremity. Pulses are diminished at the present in all 4 extremities. Skin is without rash or lesion. Stage III nonhealing heel ulcer in the right lower extremity. Neurologic examination cannot be assessed at this time. No focal neurological deficits. Pupils are equal reactive to light. - Labs CBC & Chem 7: 08/27/23 04:45 08/27/23 04:45 Labs: Abnormal Lab Results - Last 24 Hours (Table) 08/26/23 08/26/23 08/26/23 Range/Units 08:35 11:56 16:59 RBC 3.03 L (3.80-5.40) m/uL Hgb 8.5 L D (11.4-16.0) gm/dL Hct 27.8 L (34.0-46.0) % MCHC 30.5 L (31.0-37.0) g/dL RDW 17.3 H (11.5-15.5) % Chloride (98-107) mmol/L Carbon Dioxide (22-30) mmol/L BUN (7-17) mg/dL Creatinine (0.52-1.04) mg/dL Glucose (74-99) mg/dL POC Glucose (mg/dL) 157 H 144 H (70-110) mg/dL Calcium (8.4-10.2) mg/dL ALT (4-34) U/L Alkaline Phosphatase (38-126) U/L Total Protein (6.3-8.2) g/dL Albumin (3.5-5.0) g/dL 08/27/23 08/27/23 Range/Units 04:45 04:45 RBC 3.02 L (3.80-5.40) m/uL Hgb 8.6 L (11.4-16.0) gm/dL Hct 28.3 L (34.0-46.0) % MCHC 30.3 L (31.0-37.0) g/dL RDW 17.2 H (11.5-15.5) % Chloride 114 H (98-107) mmol/L Carbon Dioxide 18 L (22-30) mmol/L BUN 48 H (7-17) mg/dL Creatinine 2.22 H (0.52-1.04) mg/dL Glucose 171 H (74-99) mg/dL POC Glucose (mg/dL) (70-110) mg/dL Calcium 8.1 L (8.4-10.2) mg/dL ALT 119 H (4-34) U/L Alkaline Phosphatase 314 H (38-126) U/L Total Protein 5.4 L (6.3-8.2) g/dL Albumin 2.5 L (3.5-5.0) g/dL Microbiology - Last 24 Hours (Table) 08/23/23 01:25 Blood Culture - Preliminary Blood Assessment and Plan Plan: Cardiopulmonary arrest, x 2, with cardiopulmonary resuscitation, and return of spontaneous circulation on 08/23/23, echocardiogram shows a preserved LV function. No significant valvular abnormalities at this point in time. Cardiac rhythm is sinus. Acute hypoxic respiratory failure, postcardiac arrest, intubated and subsequently extubated on 08/25/2023 currently on 2 L oxygen by nasal cannula. S/P intubation, and mechanical ventilation, secondary to cardiopulmonary arrest, August 23, 2023. She was extubated on 08/25/23 Encephalopathy with possibility of an underlying hypoxic encephalopathy postcardiac arrest, CAT scan of the brain that was done showed no evidence of any acute abnormalities. The patient is currently Precedex as the patient was showing signs of restlessness and agitation. She seems to be calm and comfortable and there is no focal neurological deficit on today's evaluation. She is moving all 4 extremities without any limitation. History of congestive heart failure. Echocardiogram from this current admission shows a preserved LV function.. Coronary artery disease cardiomyopathy and the patient is post non-ST segment elevation myocardial infarction. Cardiac catheterization was done on 06/24/2023 and the patient had successful stenting of the proximal RCA with reduction of the stenosis from 70% to 0%. Troponin peaked at 1. Stage III chronic kidney disease, creatinine is stable for now, the patient required hemodialysis during earlier hospitalization and the last hemodialysis was on 07/02/2023. The patient has not received hemodialysis since then. Dialysis catheter was removed and the catheter was positive for corynebacterium. Right heel pressure ulcer, stage III Subacute fracture of the medial and lateral malleolus, she has a soft cast in the right lower extremity History of hypertension. History of hyperlipidemia. History of type 2 diabetes mellitus. History of severe pulmonary hypertension. History of COPD. History of peripheral neuropathy. Plan Continue Precedex, monitor mental status and gradual weaning off The patient is currently hemodynamically stable on no pressors. Cardiac rhythm is sinus. Will obtain repeated limited echocardiogram to reevaluate LV function. The echocardiogram shows a preserved LV function. Utilize Precedex for encephalopathy and restlessness and agitation, and gradually weaning off Monitor renal function continue aspirin and Plavix, creatinine is stable patient is producing urine output Continue IV Zosyn IV fluids with lactated Ringer at rate of 50 cc an hour No pressors for now Continue Lipitor 40 mg p.o. daily Continue Norvasc 5 mg p.o. daily Continue Imdur 30 mg p.o. daily Heparin subcu for DVT prophylaxis Neurology consultation is appreciated Will continue to follow This evaluation was done more than 30 minutes and there is a critical care evaluation. The patient be kept in ICU for now. Time with Patient: Greater than 30
[2023-08-27] MEDS: HYDROmorphone 0.5 MG/0.5 ML SYRINGE IVP PRN (14:59)
[2023-08-27] MEDS: LIDOCAINE 4% PATCH TOPICAL SCH (17:10)
[2023-08-27] MEDS: MORPHINE SULFATE 2 MG/ML SYRINGE IVP PRN (17:12)
[2023-08-27] MEDS: ACETAMINOPHEN IV (For NPO) 1,000 MG in EMPTY BAG 1 BAG IVPB PRN (17:13)
[2023-08-27] MEDS: FUROSEMIDE 10 MG/ML 10 ML VIAL IV STA (18:15)
[2023-08-27 20:11] LABS: Glucose,Whole Blood 302 mg/dL (70-110)
[2023-08-28 05:16] LABS: Anisocytosis Slight; Basophils # (A) 0.1 k/uL (0-0.2); Basophils % (A) 1 %; Eosinophils # (A) 0.3 k/uL (0-0.7); Eosinophils % (A) 5 %; HCT 29.2 % (34.0-46.0); HGB 8.7 gm/dL (11.4-16.0); Hypochromasia Marked; Lymphocytes # (A) 0.4 k/uL (1.0-4.8); Lymphocytes % (A) 5 %; MCHC 29.9 g/dL (31.0-37.0); MCV 93.5 fL (80.0-100.0); Mean Platelet Volume 9.7; Monocytes # (A) 0.4 k/uL (0-1.0); Monocytes % (A) 5 %; Neutrophils # (A) 5.8 k/uL (1.3-7.7); Neutrophils % (A) 82 %; Platelet Count 214 k/uL (150-450); RBC 3.12 m/uL (3.80-5.40); RDW 17.5 % (11.5-15.5); WBC 7.1 k/uL (3.8-10.6)
[2023-08-28 05:26] LABS: African American GFR (CKD) 24 (>60 ml/min/1.73 sqM); Anion Gap 6 mmol/L; Blood Urea Nitrogen 50 mg/dL (7-17); Calcium 7.7 mg/dL (8.4-10.2); Carbon Dioxide 21 mmol/L (22-30); Chloride 113 mmol/L (98-107); Glucose 350 mg/dL (74-99); Non-African American GFR(CKD) 21 (>60 ml/min/1.73 sqM); Potassium 5.1 mmol/L (3.5-5.1); Sodium 140 mmol/L (137-145)
[2023-08-28 06:16] LABS: Glucose,Whole Blood 353 mg/dL (70-110)
--- NOTE | 2023-08-28 07:24 | P.PN ---
Subjective Progress Note Date: 08/28/23 History of Present Illness: The patient is a 57-year-old female with known history of hypertension, hyperl ipidemia, diabetes mellitus as well as a history of coronary disease status post stenting of the RCA and chronic kidney disease who presented with dyspnea and had a cardiopulmonary arrest requiring CPR and mechanical ventilation. She is extubated, complaining of chest wall tenderness post CPR. She continues to be in sinus mechanism and hemodynamically stable. She had some bradycardia earlier and was started on IV dopamine. She is in sinus mechanism with no further bradycardia. Her urinary output has been stable. Her initial echo on presentation showed a preserved systolic function subsequently was found to have cardiomyopathy but that was done shortly after the event. She has a subacute fracture of the medial and lateral malleolus on the right side. August 26: The patient is sedated, she was quite agitated during the night. She had few episodes of sinus bradycardia, brief. She had no evidence of high-grade AV block. Her urinary output is stable. Her blood pressure is under good control without any vasopressors. Her repeat echocardiogram showed a preserved systolic function. She has been evaluated by neurology for possible anoxic encephalopathy. August 27: The patient is awake, confused. In sinus mechanism with no further episodes of high-grade AV block. Her blood pressure is stable. Her urinary output stable. There is no evidence of atrial fibrillation or ventricular ectopic activity. Repeat echocardiogram showed a normal left ventricle systolic function. Medications: Aspirin, amlodipine 5 mg daily, Plavix 75 mg daily, insulin, Lipitor 40 mg daily, isosorbide mononitrate 30 mg daily, hydralazine 25 mg twice a day, insulin Physical Examination: 57-year-old female, awake but confused,Blood pressure 144/70, Heart rate 60 Head: Normocephalic. Eyes: Sclerae nonicteric. Neck: Good carotid upstroke, no bruit, no jugular venous distention. Lungs: Clear anteriorly Heart: Regular rate and rhythm, S1-S2, no S3, no rub. No murmur. Abdomen: Soft nontender, positive bowel sounds no organomegaly. Extremities: No edema, intact distal pulses. Cast on the right lower extremity Labs: BUN 50, creatinine 2.45, potassium 5.1, hemoglobin 8.7 Impression: 1. Status post cardiopulmonary arrest, etiology unclear. No clear evidence of acute ischemic event. 2. Status post stenting of the RCA during prior admission 3. Chronic kidney disease 4. Chest wall discomfort, stable 5. History of hyperlipidemia 6. History of hypertension 7. Bradycardia resolved 8. History of diabetes 9. Cardiomyopathy resolved 10. Anoxic encephalopathy, postarrest Plan: 1. Continue present regimen 2. Physical therapy 3. Follow blood pressure and adjust the dose of hydralazine as needed 4. Depending on her progress further recommendations will be made Objective - Vital Signs Vital signs: Vital Signs Temp 97.4 F L 08/28/23 04:00 Pulse 60 08/28/23 07:00 Resp 21 08/28/23 07:00 BP 144/77 08/28/23 07:00 Pulse Ox 99 08/28/23 07:00 FiO2 40 08/25/23 11:38 Intake & Output 08/27/23 08/28/23 08/28/23 18:59 06:59 18:59 Intake Total 968.924 592.479 23.453 Output Total 272 380 30 Balance 696.924 212.479 -6.547 Weight 77.9 kg Intake: IV 450 340 20 Lactated Ringers 1,000 ml 350 240 20 @ 50 mls/hr IV .Q20H [facility] Rx#:[id number] Piperacillin-Tazobactam 3 100 100 .375 gm In Sodium Chloride 0.9% 100 ml @ 25 mls/hr IVPB Q8H [facility] Rx#: [id number] Intake, IV Titration 58.924 252.479 3.453 Amount Dexmedetomidine/0.9% NaCl 58.924 152.479 3.453 (Pmx) 400 mcg In Empty Bag 1 bag @ 0.2 MCG/KG/HR 3.7 mls/hr IV .Q24H [facility] Rx#:[id number] Piperacillin-Tazobactam 3 100 .375 gm In Sodium Chloride 0.9% 100 ml @ 25 mls/hr IVPB Q8H [facility] Rx#: [id number] Oral 460 Output: Urine 272 380 30 Other: Voiding Method Indwelling Catheter Indwelling Catheter ABP, PAP, CO, CI - Last Documented Arterial Blood Pressure 147/62 - Labs CBC & Chem 7: 08/28/23 04:43 08/28/23 04:43 Labs: Abnormal Lab Results - Last 24 Hours (Table) 08/27/23 08/27/23 08/28/23 Range/Units 11:11 20:09 04:43 RBC (3.80-5.40) m/uL Hgb (11.4-16.0) gm/dL Hct (34.0-46.0) % MCHC (31.0-37.0) g/dL RDW (11.5-15.5) % Lymphocytes # (1.0-4.8) k/uL Chloride 113 H (98-107) mmol/L Carbon Dioxide 21 L (22-30) mmol/L BUN 50 H (7-17) mg/dL Creatinine 2.45 H (0.52-1.04) mg/dL Glucose 350 H (74-99) mg/dL POC Glucose (mg/dL) 171 H 302 H (70-110) mg/dL Calcium 7.7 L (8.4-10.2) mg/dL 08/28/23 08/28/23 Range/Units 04:43 06:14 RBC 3.12 L (3.80-5.40) m/uL Hgb 8.7 L (11.4-16.0) gm/dL Hct 29.2 L (34.0-46.0) % MCHC 29.9 L (31.0-37.0) g/dL RDW 17.5 H (11.5-15.5) % Lymphocytes # 0.4 L (1.0-4.8) k/uL Chloride (98-107) mmol/L Carbon Dioxide (22-30) mmol/L BUN (7-17) mg/dL Creatinine (0.52-1.04) mg/dL Glucose (74-99) mg/dL POC Glucose (mg/dL) 353 H (70-110) mg/dL Calcium (8.4-10.2) mg/dL
[2023-08-28] MEDS: QUEtiapine 100 MG TAB PO SCH (10:01)
--- NOTE | 2023-08-28 10:33 | P.PN ---
Subjective Patient is seen for follow-up for acute kidney injury. She is confused. Started on Precedex. Serum creatinine increased to 2.4. Maintained on IV fluids at 40 -30 cc an hour. Restarted IVF today at 50cc/hr. Objective - Vital Signs Vital signs: Vital Signs Temp 97.4 F L 08/28/23 04:00 Pulse 60 08/28/23 07:00 Resp 21 08/28/23 07:00 BP 144/77 08/28/23 07:00 Pulse Ox 99 08/28/23 07:00 FiO2 40 08/25/23 11:38 Intake & Output 08/27/23 08/28/23 08/28/23 18:59 06:59 18:59 Intake Total 968.924 592.479 29.096 Output Total 272 380 30 Balance 696.924 212.479 -0.904 Weight 77.9 kg Intake: IV 450 340 20 Lactated Ringers 1,000 ml 350 240 20 @ 50 mls/hr IV .Q20H [facility] Rx#:[id number] Piperacillin-Tazobactam 3 100 100 .375 gm In Sodium Chloride 0.9% 100 ml @ 25 mls/hr IVPB Q8H [facility] Rx#: [id number] Intake, IV Titration 58.924 252.479 9.096 Amount Dexmedetomidine/0.9% NaCl 58.924 152.479 9.096 (Pmx) 400 mcg In Empty Bag 1 bag @ 0.2 MCG/KG/HR 3.7 mls/hr IV .Q24H [facility] Rx#:[id number] Piperacillin-Tazobactam 3 100 .375 gm In Sodium Chloride 0.9% 100 ml @ 25 mls/hr IVPB Q8H [facility] Rx#: [id number] Oral 460 Output: Urine 272 380 30 Other: Voiding Method Indwelling Catheter Indwelling Catheter ABP, PAP, CO, CI - Last Documented Arterial Blood Pressure 147/62 - Exam Patient is awake. She is comfortable. Confused Examination of the heart S1 and S2 Examination of the lungs bilateral breath sounds are heard Abdomen is soft nontender Examination of lower extremities shows 1+ edema - Labs CBC & Chem 7: 08/28/23 04:43 08/28/23 04:43 Labs: Abnormal Lab Results - Last 24 Hours (Table) 08/27/23 08/27/23 08/28/23 Range/Units 11:11 20:09 04:43 RBC (3.80-5.40) m/uL Hgb (11.4-16.0) gm/dL Hct (34.0-46.0) % MCHC (31.0-37.0) g/dL RDW (11.5-15.5) % Lymphocytes # (1.0-4.8) k/uL Chloride 113 H (98-107) mmol/L Carbon Dioxide 21 L (22-30) mmol/L BUN 50 H (7-17) mg/dL Creatinine 2.45 H (0.52-1.04) mg/dL Glucose 350 H (74-99) mg/dL POC Glucose (mg/dL) 171 H 302 H (70-110) mg/dL Calcium 7.7 L (8.4-10.2) mg/dL 08/28/23 08/28/23 Range/Units 04:43 06:14 RBC 3.12 L (3.80-5.40) m/uL Hgb 8.7 L (11.4-16.0) gm/dL Hct 29.2 L (34.0-46.0) % MCHC 29.9 L (31.0-37.0) g/dL RDW 17.5 H (11.5-15.5) % Lymphocytes # 0.4 L (1.0-4.8) k/uL Chloride (98-107) mmol/L Carbon Dioxide (22-30) mmol/L BUN (7-17) mg/dL Creatinine (0.52-1.04) mg/dL Glucose (74-99) mg/dL POC Glucose (mg/dL) 353 H (70-110) mg/dL Calcium (8.4-10.2) mg/dL Assessment and Plan Assessment: 1. Acute kidney injury secondary to ATN secondary to cardiorenal syndrome and cardiac arrest. Creatinine at 2.4 today. Patient was on hemodialysis in the past with last treatment being July 02, 2023. Dialysis catheter it is now removed. Renal US no hydronephrosis. 2. Volume overload. Improved with diuresis. 3. Acute on chronic diastolic CHF. 4. Diabetes mellitus. 5. Right foot wound. 6. Coronary disease with cardiac stenting. 7. Status post PEA arrest. 8. Septic Shock-urine culture is growing E. coli. Catheter tip culture is growing corynebacterium, blood culture negative so far. 9. Metabolic acidosis, nongap, improved Plan: May continue with IVF. Respirator status is stable. Continue with oral sodium bicarb Continue antibiotics. Repeat labs in a.m.
[2023-08-28] MEDS: SODIUM CHLORIDE 0.9% 1,000 ML IV SCH (11:00)
[2023-08-28 11:32] LABS: Glucose,Whole Blood 273 mg/dL (70-110)
--- NOTE | 2023-08-28 11:43 | P.PN ---
Subjective Progress Note Date: 08/28/23 Pulmonary consult dated August 23, 2023. This is a 57-year-old female who was admitted back on August 18, for a right heel wound. Early this morning, the patient had a cardiopulmonary arrest. The patient apparently was initially found to be bradycardic, and then had asystole. She received 3 rounds of epinephrine. She arrived to the intensive care unit this morning at 630, having been intubated on the floor by anesthesia. In the ICU, the patient had an episode of pulseless electrical activity, and asystole, and received 2 rounds of epinephrine, a dose of atropine, and some sodium bicarbonate. I came into the intensive care unit this morning, early, to place a left internal jugular triple-lumen catheter, and a right femoral arterial line. Currently, the patient is on volume assist-control, rate 16, tidal volume 400, FiO2 50%, PEEP of 5. The most recent blood gases show pO2 of 75, pCO2 49, pH is 7.44. Arterial blood gases shortly after intubation showed a pO2 of 268, pCO2 of 38, and a pH of 7.25. The patient is currently on norepinephrine at 1.4 mcg/min, and saline at 50 cc an hour. Current labs include a white count 13.8, hemoglobin 9.5, hematocrit 31, and a platelet count of 257,000. PT was 12.9 with an INR of 1.2. Sodium 135, potassium 4.9, chlorides 111, CO2 19, anion gap 5, BUN 62, creatinine 2.76. The patient's AST is 468. ALT is 286. Albumin is 2.1. Urine, is suspicious for possible infection. Brain CT Today, Shows No Acute Intracranial Process. Chest x-ray shows bilateral patchy airspace disease, right greater than left. Progress note dated August 24, 2023. The patient is seen today in the intensive care unit, room 255. The patient remains on the mechanical ventilator. Current settings include volume assist- control, rate 16, tidal volume 400, FiO2 50%, PEEP of 5. The tidal volume will be dropped down to 350, and the FiO2 will be dropped down to 40%, current blood gases show pO2 132, pCO2 34, pH is 7.37. The patient continues on 0.9 at 50 cc an hour, propofol at 20 mcg/kg/min, and vital 1.2 at 10 cc an hour, with a goal of 48. The patient is discovered to have gram-negative bacilli in the urine. She continues on Zosyn. White count 9, hemoglobin 9.6, hematocrit 30.1, platelet count 242,000. Sodium 138, potassium 4.7, chloride 113, CO2 18, BUN 63, and creatinine 2.65. Anion gap is 7. The patient's AST is 199, ALT is 235. Troponin is 0.565. Albumin is 2.0. The gram-negative bacilli in the urine was discovered to be Escherichia coli. Chest x-ray shows an endotracheal tube that is too low in the trachea, and should be pulled back. In addition, there is evidence of underlying vascular congestion, and/or infiltrates. Progress note dated August 25, 2023. 57-year-old female seen again in room 255. The patient remains on mechanical ventilator. She is on volume assist-control, rate 16, tidal volume 350, FiO2 40%, PEEP of 5. Blood gases show a pO2 of 95, pCO2 of 39, pH is 7.31. The patient is getting propofol 35 mcg/kg/min, saline at 50 cc an hour, and dopamine at 2.5 mcg/kg/min. The patient continues on Zosyn for Escherichia coli. The patient did develop some bradycardia, overnight, which required her to be on do pamine. We are going to order some Dopplers of the lower extremities. In addition, we will do a daily interruption of sedation, and a spontaneous breathing trial. Count is 10.5, hemoglobin 10.3, hematocrit 32.7, platelet count 314,000. Sodium 140, potassium 4.8, chlorides 113, CO2 18, BUN 57, cr eatinine 2.49. Glucose is 142. Magnesium is 2.1, calcium is 7.0. The patient's urine specimen from August 21, revealed Escherichia coli. Dopplers of the lower extremities were negative. Chest x-ray shows some patchy bilateral infiltrates, more left-sided than right-sided. On today's evaluation of 08/26/2023, the patient is being seen for a follow-up. The patient is post cardiopulmonary arrest that occurred on 08/23/2023 and the patient return of spontaneous circulation. Subsequently, the patient was extubated on 08/25/2023. The patient is currently on 4 L of oxygen by nasal cannula. The patient remains encephalopathic. At times, restless in bed and somewhat agitated. Based on that, made recommendations to start the patient on Precedex at the low-dose to control her restlessness and agitation. She is also noted to have a right ankle fracture and a chronic nonhealing heel ulcer, stage [place]. She was also found to have an E. coli in her urine possibly underlying urine tract infection on 08/22/2023. On today's evaluation, the patient is on 40s of oxygen by nasal cannula. Chest x-ray showing cardiomegaly and the patient has a left subclavian triple-lumen catheter in place. Hemodynamically stable on no pressors. WBC count of 8.6 with a hemoglobin 8.5 and a platelet count of 217. BUN is 51 with a creatinine of 2.28 and a sodium level is at 141 and a bicarb level is at 17. The patient is moving all 4 extremities without any limitation. The patient is currently afebrile. Nephrology is on the case regarding MARYLOU which is probably secondary to ATN and has creatinine is being monitored. Fluid balance over the past 24 hours has been 250 cc positive and the patient shows no signs of any significant fluid overload. The patient is currently on IV Zosyn regarding the possibility of an aspiration/E. coli urinary tract infection and is stage III right heel wound. She remains on bronchodilators. She is on no pressors for now. No other significant events overnight. As mentioned, she was extubated yesterday and the chest x-ray shows distal stable left-sided pleural effusion. The echocardiogram that was done on 08/20/2023 showed a preserved left ventricular ejection fraction, no significant valvular abnormalities. The patient also had Doppler of the lower extremity on 08/25/2023 that revealed no evidence of any DVT. There was a prominent lymph node in the right groin measuring 2.6 cm in size. The patient did have a catheter in her right IJ at the time of admission that was removed and the cultures came back positive for corynebacterium. On today's evaluation of 08/27/2023, the patient is being seen for a follow-up. Patient is postcardiac arrest and the patient is having some signs of anoxic encephalopathy. She was restless and confused and somewhat agitated. Based on that, the patient was started on Precedex yesterday and Precedex is running at 0.4 mcg/kg/h. No significant agitation at this point in time. She seems to be calm and comfortable. She follows occasional simple commands. No agitation. No focal neurological deficits. She is currently on 2 L of oxygen nasal cannula and she is also on lactated Ringer at rate of 50 cc an hour. Urine output is in order of 30 cc an hour. Overall fluid balance has been +700 cc over the past 24 hours. The blood work shows a WC count of 8.2 with a hemoglobin 8.6 and a platelet count of 200, BUN is at 48 with a creatinine of 2.22 and a sodium level of 141. The serum bicarb level is at 18. A repeat limited echocardiogram was done yesterday and the patient showed improvement and in the LV function and the patient ejection fraction is in order of 55 to 60% without any significant segmental wall motion abnormalities. The patient is afebrile. The patient is hemodynamically stable at this point in time. Nephrology on the case regarding her chronic renal failure. On today's evaluation of 08/28/2023, the patient continues to require Precedex for increased agitation and restlessness. While off sedation, thrashes around. Currently she is calm and comfortable being on Precedex at 0.7 mcg/kg/h. She is on 3 L of oxygen by nasal cannula. No signs of any respiratory distress. No fo tete neurological deficits. She continues to complain of chest wall soreness and pain related to CPR and based on that the patient was given IV Tylenol and she is also Hannibal for pain control. WBC count is 7.1 with a hemoglobin of 8.7 and a platelet count of 214. BUN is at 50 with a creatinine of 2.45 and a sodium level of 140 with a potassium level of 5.1. She is afebrile. She is hemodynamically stable at this point in time. Objective - Vital Signs Vital signs: Vital Signs Temp 97.4 F L 08/28/23 04:00 Pulse 60 08/28/23 07:00 Resp 21 08/28/23 07:00 BP 144/77 08/28/23 07:00 Pulse Ox 99 08/28/23 07:00 FiO2 40 08/25/23 11:38 Intake & Output 08/27/23 08/28/23 08/28/23 18:59 06:59 18:59 Intake Total 968.924 592.479 29.096 Output Total 272 380 30 Balance 696.924 212.479 -0.904 Weight 77.9 kg Intake: IV 450 340 20 Lactated Ringers 1,000 ml 350 240 20 @ 50 mls/hr IV .Q20H [facility] Rx#:[id number] Piperacillin-Tazobactam 3 100 100 .375 gm In Sodium Chloride 0.9% 100 ml @ 25 mls/hr IVPB Q8H [facility] Rx#: [id number] Intake, IV Titration 58.924 252.479 9.096 Amount Dexmedetomidine/0.9% NaCl 58.924 152.479 9.096 (Pmx) 400 mcg In Empty Bag 1 bag @ 0.2 MCG/KG/HR 3.7 mls/hr IV .Q24H [facility] Rx#:[id number] Piperacillin-Tazobactam 3 100 .375 gm In Sodium Chloride 0.9% 100 ml @ 25 mls/hr IVPB Q8H [facility] Rx#: [id number] Oral 460 Output: Urine 272 380 30 Other: Voiding Method Indwelling Catheter Indwelling Catheter ABP, PAP, CO, CI - Last Documented Arterial Blood Pressure 147/62 - Exam No acute distress, calm and comfortable on 3 L, remains encephalopathic on Precedex for agitation. Head exam was generally normal. There was no scleral icterus or corneal arcus. Mucous membranes were moist. HEENT examination is grossly unremarkable. Neck supple. Full range of motion. No adenopathy thyromegaly or neck vein distention. Cardiovascular examination reveals regular rhythm rate. S1-S2 normal. No S3 or S4. No discernible murmur noted. Heart sounds are distant. Lungs reveal scattered bilateral rhonchi. No wheezes or crackles. Breath sounds equal bilaterally. Abdomen soft without bowel sounds. Extremities are intact. No cyanosis clubbing or edema. The patient has a soft splint in her right lower extremity. Pulses are diminished at the present in all 4 extremities. Skin is without rash or lesion. Stage III nonhealing heel ulcer in the right l ower extremity. Neurologic examination No focal neurological deficits. Pupils are equal reactive to light. - Labs CBC & Chem 7: 08/28/23 04:43 08/28/23 04:43 Labs: Abnormal Lab Results - Last 24 Hours (Table) 08/27/23 08/27/23 08/28/23 Range/Units 11:11 20:09 04:43 RBC (3.80-5.40) m/uL Hgb (11.4-16.0) gm/dL Hct (34.0-46.0) % MCHC (31.0-37.0) g/dL RDW (11.5-15.5) % Lymphocytes # (1.0-4.8) k/uL Chloride 113 H (98-107) mmol/L Carbon Dioxide 21 L (22-30) mmol/L BUN 50 H (7-17) mg/dL Creatinine 2.45 H (0.52-1.04) mg/dL Glucose 350 H (74-99) mg/dL POC Glucose (mg/dL) 171 H 302 H (70-110) mg/dL Calcium 7.7 L (8.4-10.2) mg/dL 08/28/23 08/28/23 Range/Units 04:43 06:14 RBC 3.12 L (3.80-5.40) m/uL Hgb 8.7 L (11.4-16.0) gm/dL Hct 29.2 L (34.0-46.0) % MCHC 29.9 L (31.0-37.0) g/dL RDW 17.5 H (11.5-15.5) % Lymphocytes # 0.4 L (1.0-4.8) k/uL Chloride (98-107) mmol/L Carbon Dioxide (22-30) mmol/L BUN (7-17) mg/dL Creatinine (0.52-1.04) mg/dL Glucose (74-99) mg/dL POC Glucose (mg/dL) 353 H (70-110) mg/dL Calcium (8.4-10.2) mg/dL Assessment and Plan Plan: Cardiopulmonary arrest, x 2, with cardiopulmonary resuscitation, and return of spontaneous circulation on 08/23/23, echocardiogram shows a preserved LV function. No significant valvular abnormalities at this point in time. Cardiac rhythm is sinus. Acute hypoxic respiratory failure, postcardiac arrest, intubated and subsequently extubated on 08/25/2023 currently on 3 L of O2 nasal cannula S/P intubation, and mechanical ventilation, secondary to cardiopulmonary arrest, August 23, 2023. She was extubated on 08/25/23 Encephalopathy with possibility of an underlying hypoxic encephalopathy postcardiac arrest, CAT scan of the brain that was done showed no evidence of any acute abnormalities. The patient is currently Precedex as the patient was showing signs of restlessness and agitation. She seems to be calm and comfortable and there is no focal neurological deficit on today's evaluation. She is moving all 4 extremities without any limitation. She is still requiring Precedex for increased agitation and restlessness/delirium/hypoxic encephalopathy. History of congestive heart failure. Echocardiogram from this current admission shows a preserved LV function.. Coronary artery disease cardiomyopathy and the patient is post non-ST segment elevation myocardial infarction. Cardiac catheterization was done on 06/24/2023 and the patient had successful stenting of the proximal RCA with reduction of the stenosis from 70% to 0%. Troponin peaked at 1. Stage III chronic kidney disease, creatinine is stable for now, the patient required hemodialysis during earlier hospitalization and the last hemodialysis was on 07/02/2023. The patient has not received hemodialysis since then. Dialysis catheter was removed and the catheter was positive for corynebacterium. Right heel pressure ulcer, stage III Subacute fracture of the medial and lateral malleolus, she has a soft cast in the right lower extremity History of hypertension. History of hyperlipidemia. History of type 2 diabetes mellitus. History of severe pulmonary hypertension. History of COPD. History of peripheral neuropathy. Chest wall pain related to CPR Plan Continue Precedex, monitor mental status and gradual weaning off Started patient on Seroquel 100 mg p.o. twice a day The patient is currently hemodynamically stable on no pressors. Cardiac rhythm is sinus. Will obtain repeated limited echocardiogram to reevaluate LV function. The echocardiogram shows a preserved LV function. Utilize Precedex for encephalopathy and restlessness and agitation, and gradually weaning off Utilize Hannibal for pain control Monitor renal function Start the patient on saline at rate of 50 cc an hour Able to swallow without any major difficulties continue aspirin and Plavix Continue IV Zosyn No pressors for now Continue Lipitor 40 mg p.o. daily Continue Norvasc 5 mg p.o. daily Continue Imdur 30 mg p.o. daily Heparin subcu for DVT prophylaxis Neurology consultation is appreciated Will continue to follow The patient be kept in ICU for now.
[2023-08-28] MEDS: QUEtiapine 50 MG TAB PO SCH (12:15)
--- NOTE | 2023-08-28 14:00 | CT ---
EXAMINATION TYPE: CT brain wo con DATE OF EXAM: 08/28/2023 COMPARISON: 08/23/2023 INDICATION: neuro deficit, acute, persistent or progressing DLP: 1029.90 mGycm, Automated exposure control for dose reduction was used. CONTRAST: None CT of the brain is performed utilizing 3 mm thick sections through the posterior fossa and 3 mm thick sections through the remaining calvarium. Study is performed within 24 hours of arrival to the hosp [facility]. No abnormal hyperdensity is present to suggest an acute intracranial hemorrhage. No mass lesion is evident. No acute infarcts are evident. Ventricles and sulci are appropriate for the patient age. Paranasal sinuses and mastoid air cells within the [id number] are clear. IMPRESSION: 1. No acute intracranial process radiographically apparent. No significant interval change evident.
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
[2023-08-28 16:33] LABS: Glucose,Whole Blood 231 mg/dL (70-110)
[2023-08-28 18:59] LABS: ALT 74 U/L (4-34); AST 19 U/L (14-36); African American GFR (CKD) 22 (>60 ml/min/1.73 sqM); Albumin 2.3 g/dL (3.5-5.0); Alkaline Phosphatase 284 U/L (38-126); Anion Gap 7 mmol/L; Blood Urea Nitrogen 52 mg/dL (7-17); Calcium 7.5 mg/dL (8.4-10.2); Carbon Dioxide 20 mmol/L (22-30); Chloride 115 mmol/L (98-107); Glucose 261 mg/dL (74-99); Non-African American GFR(CKD) 19 (>60 ml/min/1.73 sqM); Sodium 142 mmol/L (137-145); Total Bilirubin 0.5 mg/dL (0.2-1.3); Total Protein 5.1 g/dL (6.3-8.2)
[2023-08-28 20:14] LABS: Glucose,Whole Blood 242 mg/dL (70-110)
--- NOTE | 2023-08-29 00:06 | P.PN ---
Subjective 57-year-old female came in with complaints of shortness of breath and orthopnea found to be in congestive heart failure exacerbation patient has congestive heart failure with reduced ejection fraction in the past patient has increasing pedal edema. Patient also has an ulcer in the right foot stage III-IV which appeared to be infected we will consult wound care and infectious disease. Patient was on hemodialysis during last hospitalization her creatinine presently is 1.5 which is significantly improved patient potassium is 5.5, patient is on Entresto and Aldactone Aldactone will be held Entresto will be continued since she is receiving IV Lasix and expecting her potassium to improve if it does not improve or get worse then Entresto need to be discontinued as well. Patient has hypervolemic hyponatremia and hyperglycemia. 08/21/2023 Was evaluated today on the medical floor. Patient was continued on IV Lasix overnight however she was no longer reporting any shortness of breath and her lower extremity edema has improved. She was taken off of the Lasix at this time due to increased creatinine up to 2.31 additionally potassium remains elevated at 5.7. Echocardiogram comes back showing an improved ejection fraction of 60 to 65% because of this and also the hyperkalemia patient will not be continued on entresto. Patient was evaluated by infectious disease who felt like that heel ulcer on the right side was more likely a pressure injury stage III and is recommending local wound care to continue with Aquacel. Patient is reporting significant pain to the right foot and feels like it is fractured. Upon review of the patient's chart she did have a x-ray completed of this 12 days ago ordered by her commercial print salesman Dr. Mayen. Ankle x-ray did review a mildly displaced acute distal fibular fracture. Repeat x-ray of the foot and ankle completed today does reveal a subacute fractures of the medial and lateral malleolus. The lateral malleolus fracture was seen on the patient's prior exam the medial malleolus fracture may be new in the interval and this would be considered an unstable ankle fracture. There is interval 6 mm displacement of the lateral malleolus. There is a deep soft tissue ulcer at the plantar heel with no clear radiographic findings of a contagious osteomyelitis at this time. Orthooedics was consulted for this. 08/22/2023 Patient evaluated in follow-up today resting in bed. She was taken off of the Lasix remains off at this time. Bladder scan was requested and not done yesterday to rule out urinary retention, creatinine today is increased up to 2.56. Bladder scan was done require urinary straight catheterization of 550 mL taken out. Urinalysis was sent which is significantly abnormal. Patient is also noted to have multiple genital lesions which appear wartlike she admits to not having any routine gynecological screenings for many years. She is not having any vaginal bleeding or discharge. Renal ultrasound has been ordered to rule out any obstructive uropathy. 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 Patient upon arrival to the intensive care unit had another episode of cardiac arrest patient had bradycardia while on pressors in the ICU patient was intubated following the first cardiac arrest and is currently on the mechanical ventilator 50% FiO2. Chest x-ray showing similar interstitial and patchy component airspace disease right greater than left. There is a possible trace left pleural effusion. A brain CT which shows no acute intracranial process. Blood work today shows a white blood cell count of 13.8, hemoglobin 9.5, sodium level of 135, BUN of 62, creatinine of 2.76. AST ALT and alk phosphatase are significantly elevated consistent with a shock liver. TSH 3.310. Urinalysis is abnormal. Her urine culture is showing gram-negative bacilli patient is covered for the urinary tract infection as well as aspiration with IV Zosyn being managed by infectious disease. Patient is currently sedated with propofol and did require vasopressor support with Levophed which has been weaned at this time. Will discontinue the gabapentin patient is continued on aspirin Plavix and statin has been placed on hold. There is concern for possible arrhythmia precipitating the asystole additionally we need to rule out embolism and a D-dimer has been ordered. 08/24/2023 Patient is seen in follow-up today continues in the ICU on mechanical ventilation. FiO2 is 50% although titrating and was just placed at 40% with a PEEP of 5. Chest x-ray today shows that the ET tube is 7 mm from the sonam suggesting a pulled back 2 cm and reassess and also suspected underlying vascular congestion. Neuro is following and per nursing staff patient is following some simple commands and undergoing sedation holidays. Patient noted to have reduced EF of 30 to 35% and cardiology had been following. Will reconsult and appreciate input and recommendations. patient did have dialysis catheter removed and sent for cultures which are pending. Infectious disease following and patient is maintained on antibiotic. D-dimer is elevated above 16 and will attempt to obtain a VQ scan.57-year-old female came in with complaints of shortness of breath and orthopnea found to be in congestive heart failure exacerbation patient has congestive heart failure with reduced ejection fraction in the past patient has increasing pedal edema. Patient also has an ulcer in the right foot stage III-IV which appeared to be infected we will consult wound care and infectious disease. Patient was on hemodialysis during last hospi talization her creatinine presently is 1.5 which is significantly improved patient potassium is 5.5, patient is on Entresto and Aldactone Aldactone will be held Entresto will be continued since she is receiving IV Lasix and expecting her potassium to improve if it does not improve or get worse then Entresto need to be discontinued as well. Patient has hypervolemic hyponatremia and hyperglycemia. 08/21/2023 Was evaluated today on the medical floor. Patient was continued on IV Lasix overnight however she was no longer reporting any shortness of breath and her lower extremity edema has improved. She was taken off of the Lasix at this time due to increased creatinine up to 2.31 additionally potassium remains elevated at 5.7. Echocardiogram comes back showing an improved ejection fraction of 60 to 65% because of this and also the hyperkalemia patient will not be continued on entresto. Patient was evaluated by infectious disease who felt like that heel ulcer on the right side was more likely a pressure injury stage III and is recommending local wound care to continue with Aquacel. Patient is reporting significant pain to the right foot and feels like it is fractured. Upon review of the patient's chart she did have a x-ray completed of this 12 days ago ordered by her commercial print salesman Dr. Mayen. Ankle x-ray did review a mildly displaced acute distal fibular fracture. Repeat x-ray of the foot and ankle completed today does reveal a subacute fractures of the medial and lateral malleolus. The lateral malleolus fracture was seen on the patient's prior exam the medial malleolus fracture may be new in the interval and this would be considered an unstable ankle fracture. There is interval 6 mm displacement of the lateral malleolus. There is a deep soft tissue ulcer at the plantar heel with no clear radiographic findings of a contagious osteomyelitis at this time. Orthooedics was consulted for this. 08/22/2023 Patient evaluated in follow-up today resting in bed. She was taken off of the Lasix remains off at this time. Bladder scan was requested and not done yesterday to rule out urinary retention, creatinine today is increased up to 2.56. Bladder scan was done require urinary straight catheterization of 550 mL taken out. Urinalysis was sent which is significantly abnormal. Patient is also noted to have multiple genital lesions which appear wartlike she admits to not having any routine gynecological screenings for many years. She is not having any vaginal bleeding or discharge. Renal ultrasound has been ordered to rule out any obstructive uropathy. 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 Patient upon arrival to the intensive care unit had another episode of cardiac arrest patient had bra dycardia while on pressors in the ICU patient was intubated following the first cardiac arrest and is currently on the mechanical ventilator 50% FiO2. Chest x- ray showing similar interstitial and patchy component airspace disease right greater than left. There is a possible trace left pleural effusion. A brain CT which shows no acute intracranial process. Blood work today shows a white blood cell count of 13.8, hemoglobin 9.5, sodium level of 135, BUN of 62, creatinine of 2.76. AST ALT and alk phosphatase are significantly elevated consistent with a shock liver. TSH 3.310. Urinalysis is abnormal. Her urine culture is showing gram-negative bacilli patient is covered for the urinary tract infection as well as aspiration with IV Zosyn being managed by infectious disease. Patient is currently sedated with propofol and did require vasopressor support with Levophed which has been weaned at this time. Will discontinue the gabapentin patient is continued on aspirin Plavix and statin has been placed on hold. There is concern for possible arrhythmia precipitating the asystole additionally we need to rule out embolism and a D-dimer has been ordered. 08/24/2023 Patient is seen in follow-up today continues in the ICU on mechanical ventilation. FiO2 is 50% although titrating and was just placed at 40% with a PEEP of 5. Chest x-ray today shows that the ET tube is 7 mm from the sonam suggesting a pulled back 2 cm and reassess and also suspected underlying vascular congestion. Neuro is following and per nursing staff patient is following some simple commands and undergoing sedation holidays. Patient noted to have reduced EF of 30 to 35% and cardiology had been following. Will reconsult and appreciate input and recommendations. patient did have dialysis catheter removed and sent for cultures which are pending. Infectious disease following and patient is maintained on antibiotic. D-dimer is elevated above 16 and will attempt to obtain a VQ scan. 08/25/23 : Patient seen and evaluated at bedside, patient extubated around noon, transition to 5 L of oxygen to nasal cannula. Family at bedside, blood work reviewed hemoglobin 10.3, serum chemistry reviewed sodium 140 potassium 4.8 BUN 57 creatinine 2.49 calcium of 7. 08/26/23 : Patient seen and evaluated at bedside, patient remains in medical ICU, does complain of chest pain from CPR. Patient has been weaned off dopamine, cardiology following, blood work reviewed, hemoglobin 8.5 platelet count of 217, serum chemistry shows sodium 141 BUN 51 creatinine 2.28. Followed up by nephrology as well MARYLOU secondary to ATN continue to monitor intake and output 08/27/23: Patient seen and evaluated bedside, on evaluation patient is disoriented, patient is drowsy however likely having acute delirium. Seen by cardiology echocardiogram shows preserved ejection fraction continue with current medical management, patient on Precedex for acute delirium, continue to remain on oxygen supplementation with nasal cannula blood work reviewed CBC showed WBC 8.2 hemoglobin 8.6 serum chemistry showed creatinine of 2.22. Cande ent remains delirious, daughter at bedside all questions answered 08/28/2023 Patient was agitated earlier requiring Seroquel and Placed on Precedex because she was has risk to self and others Currently when I saw the patient she was sleepy However she is not tachypneic show does not look in pain. Vitals are stable She is saturating 91% on 2 L oxygen via nasal cannula She remains on Zosyn for pneumonia and UTI She is on normal saline at 50 mL/h Objective - Vital Signs Vital signs: Vital Signs Temp 97.4 F L 08/28/23 04:00 Pulse 60 08/28/23 07:00 Resp 21 08/28/23 07:00 BP 144/77 08/28/23 07:00 Pulse Ox 99 08/28/23 07:00 FiO2 40 08/25/23 11:38 Intake & Output 08/27/23 08/28/23 08/28/23 18:59 06:59 18:59 Intake Total 968.924 592.479 29.096 Output Total 272 380 30 Balance 696.924 212.479 -0.904 Weight 77.9 kg Intake: IV 450 340 20 Lactated Ringers 1,000 ml 350 240 20 @ 50 mls/hr IV .Q20H RYLIE Rx#:[id number] Piperacillin-Tazobactam 3 100 100 .375 gm In Sodium Chloride 0.9% 100 ml @ 25 mls/hr IVPB Q8H RYLIE Rx#: [id number] Intake, IV Titration 58.924 252.479 9.096 Amount Dexmedetomidine/0.9% NaCl 58.924 152.479 9.096 (Pmx) 400 mcg In Empty Bag 1 bag @ 0.2 MCG/KG/HR 3.7 mls/hr IV .Q24H RYLIE Rx#:[id number] Piperacillin-Tazobactam 3 100 .375 gm In Sodium Chloride 0.9% 100 ml @ 25 mls/hr IVPB Q8H RYLIE Rx#: [id number] Oral 460 Output: Urine 272 380 30 Other: Voiding Method Indwelling Catheter Indwelling Catheter ABP, PAP, CO, CI - Last Documented Arterial Blood Pressure 147/62 - Exam -GENERAL: The patient is sleepy HEENT: Pupils are round and equally reacting to light. EOMI. No scleral icterus. No conjunctival pallor. Normocephalic, atraumatic. No pharyngeal erythema. No thyromegaly. CARDIOVASCULAR: S1 and S2 present. No murmurs, rubs, or gallops. PULMONARY: Chest is clear to auscultation, no wheezing , no crackles. ABDOMEN: Soft, nontender, nondistended, normoactive bowel sounds. No palpable organomegaly. MUSCULOSKELETAL: No joint swelling or deformity. EXTREMITIES: No cyanosis, clubbing, or pedal edema. NEUROLOGICAL: Gross neurological examination did not reveal any focal deficits. SKIN: No rashes. no petechiae. - Labs CBC & Chem 7: 08/28/23 04:43 08/28/23 18:23 Labs: Abnormal Lab Results - Last 24 Hours (Table) 08/27/23 08/27/23 08/28/23 Range/Units 11:11 20:09 04:43 RBC (3.80-5.40) m/uL Hgb (11.4-16.0) gm/dL Hct (34.0-46.0) % MCHC (31.0-37.0) g/dL RDW (11.5-15.5) % Lymphocytes # (1.0-4.8) k/uL Chloride 113 H (98-107) mmol/L Carbon Dioxide 21 L (22-30) mmol/L BUN 50 H (7-17) mg/dL Creatinine 2.45 H (0.52-1.04) mg/dL Glucose 350 H (74-99) mg/dL POC Glucose (mg/dL) 171 H 302 H (70-110) mg/dL Calcium 7.7 L (8.4-10.2) mg/dL 08/28/23 08/28/23 Range/Units 04:43 06:14 RBC 3.12 L (3.80-5.40) m/uL Hgb 8.7 L (11.4-16.0) gm/dL Hct 29.2 L (34.0-46.0) % MCHC 29.9 L (31.0-37.0) g/dL RDW 17.5 H (11.5-15.5) % Lymphocytes # 0.4 L (1.0-4.8) k/uL Chloride (98-107) mmol/L Carbon Dioxide (22-30) mmol/L BUN (7-17) mg/dL Creatinine (0.52-1.04) mg/dL Glucose (74-99) mg/dL POC Glucose (mg/dL) 353 H (70-110) mg/dL Calcium (8.4-10.2) mg/dL Assessment and Plan Assessment: * Asystole/cardiopulmonary arrest x 2 with CPR/ROSC * Respiratory failure requiring intubation s/p extubation 08/25/2023 * Acute metabolic encephalopathy * Congestive heart failure with systolic dysfunction acute on chronic exacerbation * Ischemic cardiomyopathy with improved EF * Acute kidney injury secondary to ATN on chronic kidney disease stage III * Urinary tract infection with E. coli * Subacute fracture of the medial and lateral malleolus, orthopedics following * Right heel stage III pressure injury continue local wound care with aquacel ID following. * Genital lesions, will need creative specialist follow up outpatient for routine screenings * Hypertension * Hyperlipidemia * Type 2 diabetes mellitus uncontrolled hgb a1c 12.1 * Severe pulmonary hypertension * COPD without any acute exacerbation * Peripheral neuropathy Plan: Continue with Zosyn Continue with IV hydration Precedex Monitor mentation Neurology and pulmonary team on the case Cardiology team on the case Continue with aspirin and Plavix Labs and medication were reviewed.. DVT prophylaxis: Subcutaneous heparin GI Prophylaxis: Pepcid Prognosis is guarded
[2023-08-29 04:15] LABS: African American GFR (CKD) 20 (>60 ml/min/1.73 sqM); Anion Gap 9 mmol/L; Blood Urea Nitrogen 54 mg/dL (7-17); Calcium 7.6 mg/dL (8.4-10.2); Carbon Dioxide 18 mmol/L (22-30); Chloride 117 mmol/L (98-107); Glucose 103 mg/dL (74-99); Non-African American GFR(CKD) 18 (>60 ml/min/1.73 sqM); Potassium 4.9 mmol/L (3.5-5.1); Sodium 144 mmol/L (137-145)
[2023-08-29 04:25] LABS: Anisocytosis Slight; HCT 27.4 % (34.0-46.0); HGB 8.4 gm/dL (11.4-16.0); Hypochromasia Marked; MCHC 30.7 g/dL (31.0-37.0); MCV 94.5 fL (80.0-100.0); Mean Platelet Volume 9.8; Platelet Count 184 k/uL (150-450); RDW 18.1 % (11.5-15.5)
[2023-08-29 06:21] LABS: Glucose,Whole Blood 105 mg/dL (70-110)
[2023-08-29] MEDS: SODIUM CHLORIDE 0.45% 1,000 ML IV SCH (06:26)
--- NOTE | 2023-08-29 06:27 | P.PN ---
Subjective Progress Note Date: 08/29/23 Principal diagnosis: Respiratory failure. Pulmonary consult dated August 23, 2023. This is a 57-year-old female who was admitted back on August 18, for a right heel wound. Early this morning, the patient had a cardiopulmonary arrest. The patient apparently was initially found to be bradycardic, and then had asystole. She received 3 rounds of epinephrine. She arrived to the intensive care unit this morning at 630, having been intubated on the floor by anesthesia. In the I CU, the patient had an episode of pulseless electrical activity, and asystole, and received 2 rounds of epinephrine, a dose of atropine, and some sodium bicarbonate. I came into the intensive care unit this morning, early, to place a left internal jugular triple-lumen catheter, and a right femoral arterial line. Currently, the patient is on volume assist-control, rate 16, tidal volume 400, FiO2 50%, PEEP of 5. The most recent blood gases show pO2 of 75, pCO2 49, pH is 7.44. Arterial blood gases shortly after intubation showed a pO2 of 268, pCO2 of 38, and a pH of 7.25. The patient is currently on norepinephrine at 1.4 mcg/min, and saline at 50 cc an hour. Current labs include a white count 13.8, hemoglobin 9.5, hematocrit 31, and a platelet count of 257,000. PT was 12.9 with an INR of 1.2. Sodium 135, potassium 4.9, chlorides 111, CO2 19, anion gap 5, BUN 62, creatinine 2.76. The patient's AST is 468. ALT is 286. Albumin is 2.1. Urine, is suspicious for possible infection. Brain CT Today, Shows No Acute Intracranial Process. Chest x-ray shows bilateral patchy airspace d isease, right greater than left. Progress note dated August 24, 2023. The patient is seen today in the intensive care unit, room 255. The patient remains on the mechanical ventilator. Current settings include volume assist- control, rate 16, tidal volume 400, FiO2 50%, PEEP of 5. The tidal volume will be dropped down to 350, and the FiO2 will be dropped down to 40%, current blood gases show pO2 132, pCO2 34, pH is 7.37. The patient continues on 0.9 at 50 cc an hour, propofol at 20 mcg/kg/min, and vital 1.2 at 10 cc an hour, with a goal of 48. The patient is discovered to have gram-negative bacilli in the urine. She continues on Zosyn. White count 9, hemoglobin 9.6, hematocrit 30.1, p latelet count 242,000. Sodium 138, potassium 4.7, chloride 113, CO2 18, BUN 63, and creatinine 2.65. Anion gap is 7. The patient's AST is 199, ALT is 235. Troponin is 0.565. Albumin is 2.0. The gram-negative bacilli in the urine was discovered to be Escherichia coli. Chest x-ray shows an endotracheal tube that is too low in the trachea, and should be pulled back. In addition, there is evidence of underlying vascular congestion, and/or infiltrates. Progress note dated August 25, 2023. 57-year-old female seen again in room 255. The patient remains on mechanical ventilator. She is on volume assist-control, rate 16, tidal volume 350, FiO2 40%, PEEP of 5. Blood gases show a pO2 of 95, pCO2 of 39, pH is 7.31. The patient is getting propofol 35 mcg/kg/min, saline at 50 cc an hour, and dopamine at 2.5 mcg/kg/min. The patient continues on Zosyn for Escherichia coli. The patient did develop some bradycardia, overnight, which required her to be on dopamine. We are going to order some Dopplers of the lower extremities. In addition, we will do a daily interruption of sedation, and a spontaneous breathing trial. Count is 10.5, hemoglobin 10.3, hematocrit 32.7, platelet count 314,000. Sodium 140, potassium 4.8, chlorides 113, CO2 18, BUN 57, creatinine 2.49. Glucose is 142. Magnesium is 2.1, calcium is 7.0. The patient's urine specimen from August 21, revealed Escherichia coli. Dopplers of the lower extremities were negative. Chest x-ray shows some patchy bilateral in filtrates, more left-sided than right-sided. On today's evaluation of 08/26/2023, the patient is being seen for a follow-up. The patient is post cardiopulmonary arrest that occurred on 08/23/2023 and the patient return of spontaneous circulation. Subsequently, the patient was extubated on 08/25/2023. The patient is currently on 4 L of oxygen by nasal cannula. The patient remains encephalopathic. At times, restless in bed and somewhat agitated. Based on that, made recommendations to start the patient on Precedex at the low-dose to control her restlessness and agitation. She is also noted to have a right ankle fracture and a chronic nonhealing heel ulcer, stage [place]. She was also found to have an E. coli in her urine possibly underlying urine tract infection on 08/22/2023. On today's evaluation, the patient is on 40s of oxygen by nasal cannula. Chest x-ray showing cardiomegaly and the patient has a left subclavian triple-lumen catheter in place. Hemodynamically stable on no pressors. WBC count of 8.6 with a hemoglobin 8.5 and a platelet count of 217. BUN is 51 with a creatinine of 2.28 and a sodium level is at 141 and a bicarb level is at 17. The patient is moving all 4 extremities without any limitation. The patient is currently afebrile. Nephrology is on the case regarding MARYLOU which is probably secondary to ATN and has creatinine is being monitored. Fluid balance over the past 24 hours has been 250 cc positive and the patient shows no signs of any significant fluid overload. The patient is currently on IV Zosyn regarding the possibility of an aspiration/E. coli urinary tract infection and is stage III right heel wound. She remains on bronchodilators. She is on no pressors for now. No other significant events overnight. As mentioned, she was extubated yesterday and the chest x-ray shows distal stable left-sided pleural effusion. The echocardiogram that was done on 08/20/2023 showed a preserved left ventricular ejection fraction, no significant valvular abnormalities. The patient also had Doppler of the lower extremity on 08/25/2023 that revealed no evidence of any DVT. There was a prominent lymph node in the right groin measuring 2.6 cm in size. The patient did have a catheter in her right IJ at the time of admission that was removed and the cultures came back positive for corynebacterium. On today's evaluation of 08/27/2023, the patient is being seen for a follow-up. Patient is postcardiac arrest and the patient is having some signs of anoxic encephalopathy. She was restless and confused and somewhat agitated. Based on that, the patient was started on Precedex yesterday and Precedex is running at 0.4 mcg/kg/h. No significant agitation at this point in time. She seems to be calm and comfortable. She follows occasional simple commands. No agitation. No focal neurological deficits. She is currently on 2 L of oxygen nasal cannula and she is also on lactated Ringer at rate of 50 cc an hour. Urine output is in order of 30 cc an hour. Overall fluid balance has been +700 cc over the past 24 hours. The blood work shows a WC count of 8.2 with a hemoglobin 8.6 and a platelet count of 200, BUN is at 48 with a creatinine of 2.22 and a sodium level of 141. The serum bicarb level is at 18. A repeat limited echocardiogram was done yesterday and the patient showed improvement and in the LV function and the patient ejection fraction is in order of 55 to 60% without any significant segmental wall motion abnormalities. The patient is afebrile. The patient is hemodynamically stable at this point in time. Nephrology on the case regarding her chronic renal failure. On today's evaluation of 08/28/2023, the patient continues to require Precedex for increased agitation and restlessness. While off sedation, thrashes around. Currently she is calm and comfortable being on Precedex at 0.7 mcg/kg/h. She is on 3 L of oxygen by nasal cannula. No signs of any respiratory distress. No focal neurological deficits. She continues to complain of chest wall soreness and pain related to CPR and based on that the patient was given IV Tylenol and she is also [place] for pain control. WBC count is 7.1 with a hemoglobin of 8.7 and a platelet count of 214. BUN is at 50 with a creatinine of 2.45 and a sodium level of 140 with a potassium level of 5.1. She is afebrile. She is hemodynamically stable at this point in time. Progress note dated August 29, 2023. The patient is seen today in room 255, intensive care unit. The patient was extubated from mechanical ventilation on August 24. She continues on oxygen by nasal cannula at 2 L. She is getting saline at 50 cc an hour. She does continue on Zosyn. She also continues on dexmedetomidine at 0.4 mcg/kg/h, for ongoing restlessness and agitation. Current labs include a white count of 6, hemoglobin 8.4, hematocrit 27.4, and a normal platelet count. Sodium 144, pot assium 4.9, chlorides 117, CO2 18, BUN 54, creatinine 2.86. The patient's glucose was 103. Calcium is 7.6. Urine from August 21 with positive for Escherichia coli. Catheter tip, from August 22 with positive for Corynebacterium species. Objective - Vital Signs Vital signs: Vital Signs Temp 98.2 F 08/29/23 04:00 Pulse 62 08/29/23 05:00 Resp 13 08/29/23 05:00 BP 99/74 08/29/23 05:00 Pulse Ox 90 L 08/29/23 00:06 FiO2 40 08/25/23 11:38 Intake & Output 08/28/23 08/28/23 08/29/23 06:59 18:59 06:59 Intake Total 592.479 652.891 714.998 Output Total 380 145 95 Balance 212.479 507.891 619.998 Weight 77.9 kg Intake: IV 340 580 650 Invasive Line 5 90 Invasive Line 8 20 Lactated Ringers 1,000 ml 240 20 @ 50 mls/hr IV .Q20H [facility] Rx#:[id number] Piperacillin-Tazobactam 3 100 100 100 .375 gm In Sodium Chloride 0.9% 100 ml @ 25 mls/hr IVPB Q8H R[facility]IE Rx#: [id number] Sodium Chloride 0.9% 1, 350 550 000 ml @ 50 mls/hr IV . Q20H RYLIE Rx#:[id number] Intake, IV Titration 252.479 72.891 64.998 Amount Dexmedetomidine/0.9% NaCl 152.479 72.891 64.998 (Pmx) 400 mcg In Empty Bag 1 bag @ 0.2 MCG/KG/HR 3.7 mls/hr IV .Q24H R[facility]IE Rx#:[id number] Piperacillin-Tazobactam 3 100 .375 gm In Sodium Chloride 0.9% 100 ml @ 25 mls/hr IVPB Q8H [facility] Rx#: [id number] Oral 0 Output: Urine 380 145 95 Other: Voiding Method Indwelling Catheter Indwelling Catheter Indwelling Catheter ABP, PAP, CO, CI - Last Documented Arterial Blood Pressure 125/73 - Exam No acute distress, extubated, currently on nasal O2 at 2 L. HEENT examination is grossly unremarkable. Neck supple. Full range of motion. No adenopathy thyromegaly or neck vein distention. Cardiovascular examination reveals regular rhythm rate. S1-S2 normal. No S3 or S4. No discernible murmur noted. Heart sounds are distant. Heart rate 77 bpm. Lungs reveal scattered bilateral rhonchi. No wheezes or crackles. Breath sounds equal bilaterally. Saturation is 96 %. Abdomen soft with bowel sounds. Extremities are intact. No cyanosis clubbing or edema. Skin is without rash or lesion. Neurologic examination is difficult to assess. Patient currently being sedated with dexmedetomidine. - Labs CBC & Chem 7: 08/29/23 03:47 08/29/23 03:47 Labs: Abnormal Lab Results - Last 24 Hours (Table) 08/28/23 08/28/23 08/28/23 Range/Units 11:30 16:32 18:23 RBC (3.80-5.40) m/uL Hgb (11.4-16.0) gm/dL Hct (34.0-46.0) % MCHC (31.0-37.0) g/dL RDW (11.5-15.5) % Chloride 115 H (98-107) mmol/L Carbon Dioxide 20 L (22-30) mmol/L BUN 52 H (7-17) mg/dL Creatinine 2.65 H (0.52-1.04) mg/dL Glucose 261 H (74-99) mg/dL POC Glucose (mg/dL) 273 H 231 H (70-110) mg/dL Calcium 7.5 L (8.4-10.2) mg/dL ALT 74 H (4-34) U/L Alkaline Phosphatase 284 H (38-126) U/L Total Protein 5.1 L (6.3-8.2) g/dL Albumin 2.3 L (3.5-5.0) g/dL 08/28/23 08/29/23 08/29/23 Range/Units 20:12 03:47 03:47 RBC 2.90 L (3.80-5.40) m/uL Hgb 8.4 L (11.4-16.0) gm/dL Hct 27.4 L (34.0-46.0) % MCHC 30.7 L (31.0-37.0) g/dL RDW 18.1 H (11.5-15.5) % Chloride 117 H (98-107) mmol/L Carbon Dioxide 18 L (22-30) mmol/L BUN 54 H (7-17) mg/dL Creatinine 2.86 H (0.52-1.04) mg/dL Glucose 103 H (74-99) mg/dL POC Glucose (mg/dL) 242 H (70-110) mg/dL Calcium 7.6 L (8.4-10.2) mg/dL ALT (4-34) U/L Alkaline Phosphatase (38-126) U/L Total Protein (6.3-8.2) g/dL Albumin (3.5-5.0) g/dL Microbiology - Last 24 Hours (Table) 08/23/23 01:25 Blood Culture - Final Blood Assessment and Plan Assessment: Cardiopulmonary arrest, x 2, with cardiopulmonary resuscitation, and return of spontaneous circulation on 08/23/23, echocardiogram shows a preserved LV function. No significant valvular abnormalities at this point in time. Cardiac rhythm is sinus. Acute hypoxic respiratory failure, postcardiac arrest, intubated and subsequently extubated on 08/25/2023 currently on 3 L of O2 nasal cannula S/P intubation, and mechanical ventilation, secondary to cardiopulmonary arrest, August 23, 2023. She was extubated on 08/25/23 Encephalopathy with possibility of an underlying hypoxic encephalopathy postcardiac arrest, CAT scan of the brain that was done showed no evidence of any acute abnormalities. The patient is currently Precedex as the patient was showing signs of restlessness and agitation. She seems to be calm and comfortable and there is no focal neurological deficit on today's evaluation. She is moving all 4 extremities without any limitation. She is still requiring Precedex for increased agitation and restlessness/delirium/hypoxic encep halopathy. History of congestive heart failure. Echocardiogram from this current admission shows a preserved LV function.. Coronary artery disease cardiomyopathy and the patient is post non-ST segment elevation myocardial infarction. Cardiac catheterization was done on 06/24/2023 and the patient had successful stenting of the proximal RCA with reduction of the stenosis from 70% to 0%. Troponin peaked at 1. Stage III chronic kidney disease, creatinine is stable for now, the patient required hemodialysis during earlier hospitalization and the last hemodialysis was on 07/02/2023. The patient has not received hemodialysis since then. Dialysis catheter was removed and the catheter was positive for corynebacterium. Right heel pressure ulcer, stage III Subacute fracture of the medial and lateral malleolus, she has a soft cast in the right lower extremity History of hypertension. History of hyperlipidemia. History of type 2 diabetes mellitus. History of severe pulmonary hypertension. History of COPD. History of peripheral neuropathy. Chest wall pain related to CPR Plan: Plan dated August 23, 2023. The patient is seen in the intensive care unit, room 255. I came in early this morning to place an arterial line, and the internal jugular triple-lumen catheter. The patient had poor IV access. The patient is currently on norepinephrine at 1.4 mcg/min. He is getting saline at [address] scan of the brain, was negative. The patient blood gases show pO2 of 75, pCO2 of 49, pH of 7.44. We will continue to follow make recommendations along the way. The patient's overall prognosis remains very guarded. The patient continues on ceftriaxone, and fluconazole. Prognosis is guarded. Plan dated August 24, 2023. The patient is seen today in room 255. She remains on mechanical ventilator. The urine is showing evidence of Escherichia coli. The patient continues on Zosyn. The patient's EEG shows slowing, consistent with severe encephalopathy. There was no evidence of any seizure activity. Labs, x-rays, and all medications are reviewed. We will continue to follow the patient, make recommendations along the way. The patient's overall prognosis remains very guarded. Today we make some ventilator changes, including dropping the tidal volume down from 400, down to 350, and the FiO2, being reduced to 40%, for 50%. Plan dated August 25, 2023. The patient is seen today in room 255. She remains on the mechanical ventilator. Today, we will do a daily interruption of sedation, and a spontaneous breathing trial. Dopplers of the lower extremities were negative. She remains on Zosyn for Escherichia coli urinary tract infection. Overnight she developed bradycardia. For that she was started on dopamine by cardiology. The patient is getting saline at 50 cc an hour, propofol at 35 mcg/kg/min. Blood gases are reasonable. Will place the patient on PSV 5, CPAP 5, get some weaning parameters, and see if we can extubate the patient. We will continue to follow. Labs, x-rays, and medications are reviewed. Prognosis is guarded. Plan dated August 29, 2023. The patient will continue with dexmedetomidine, and hopefully, it will be gra dually weaned off. The patient was started on Seroquel, 100 mg twice a day. The patient is currently hemodynamically stable, with no need for vasopressors. Cardiac rhythm is also stable. A repeat echocardiogram has been ordered. The patient is on [place] for pain control. Also, the patient continues on Zosyn. Other medications include Lipitor, Norvasc, and Imdur, as well as subcutaneous heparin for DVT prophylaxis. We will continue to monitor, in the intensive care unit. Prognosis is certainly very guarded. Neurologic status is of a concern. Appreciate input by neurology. Time with Patient: Greater than 30
--- NOTE | 2023-08-29 07:24 | P.PN ---
Subjective Progress Note Date: 08/29/23 History of Present Illness: The patient is a 57-year-old female with known history of hypertension, hyperl ipidemia, diabetes mellitus as well as a history of coronary disease status post stenting of the RCA and chronic kidney disease who presented with dyspnea and had a cardiopulmonary arrest requiring CPR and mechanical ventilation. She is extubated, complaining of chest wall tenderness post CPR. She continues to be in sinus mechanism and hemodynamically stable. She had some bradycardia earlier and was started on IV dopamine. She is in sinus mechanism with no further bradycardia. Her urinary output has been stable. Her initial echo on presentation showed a preserved systolic function subsequently was found to have cardiomyopathy but that was done shortly after the event. She has a subacute fracture of the medial and lateral malleolus on the right side. August 26: The patient is sedated, she was quite agitated during the night. She had few episodes of sinus bradycardia, brief. She had no evidence of high-grade AV block. Her urinary output is stable. Her blood pressure is under good control without any vasopressors. Her repeat echocardiogram showed a preserved systolic function. She has been evaluated by neurology for possible anoxic encephalopathy. August 27: The patient is awake, confused. In sinus mechanism with no further episodes of high-grade AV block. Her blood pressure is stable. Her urinary output stable. There is no evidence of atrial fibrillation or ventricular ectopic activity. Repeat echocardiogram showed a normal left ventricle systolic function. August 28: The patient is sedated. She was agitated and confused during the night. She had no further episodes of bradycardia arrhythmia. Her blood pressure has been stable. She continues to be intubated. She is undergoing an EEG to evaluate her neurological status. There is no evidence of atrial fibrillation or ventricular tachyarrhythmia. Medications: Aspirin, amlodipine 5 mg daily, Plavix 75 mg daily, insulin, Lipitor 40 mg daily, isosorbide mononitrate 30 mg daily, hydralazine 25 mg twice a day, insulin Physical Examination: 57-year-old female, sedated,Blood pressure 100/60, Heart rate 60 Head: Normocephalic. Eyes: Sclerae nonicteric. Neck: Good carotid upstroke, no bruit, no jugular venous distention. Lungs: Clear anteriorly Heart: Regular rate and rhythm, S1-S2, no S3, no rub. No murmur. Abdomen: Soft , positive bowel sounds no organomegaly. Extremities: No edema, intact distal pulses. Cast on the right lower extremity Labs: BUN 54, creatinine 2.86, potassium 4.9, hemoglobin 8.4 Impression: 1. Status post cardiopulmonary arrest, etiology unclear. No clear evidence of acute ischemic event. 2. Status post stenting of the RCA during prior admission 3. Chronic kidney disease 4. Chest wall discomfort, stable 5. History of hyperlipidemia 6. History of hypertension 7. Bradycardia resolved 8. History of diabetes 9. Cardiomyopathy resolved 10. Anoxic encephalopathy, postarrest Plan: 1. Follow blood pressure readings, hold hydralazine for now 2. Await further neurological evaluation for anoxic encephalopathy 3. Depending on her progress further recommendations will be made Objective - Vital Signs Vital signs: Vital Signs Temp 98.2 F 08/29/23 04:00 Pulse 62 08/29/23 06:00 Resp 12 08/29/23 06:00 BP 100/68 08/29/23 06:00 Pulse Ox 94 L 08/29/23 06:00 FiO2 40 08/25/23 11:38 Intake & Output 08/28/23 08/29/23 08/29/23 18:59 06:59 18:59 Intake Total 652.891 764.998 Output Total 145 105 Balance 507.891 659.998 Weight 78.8 kg Intake: IV 580 700 Invasive Line 5 90 Invasive Line 8 20 Lactated Ringers 1,000 ml 20 @ 50 mls/hr IV .Q20H [facility] Rx#:[id number] Piperacillin-Tazobactam 3 100 100 .375 gm In Sodium Chloride 0.9% 100 ml @ 25 mls/hr IVPB Q8H [facility] Rx#: [id number] Sodium Chloride 0.9% 1, 350 600 000 ml @ 50 mls/hr IV . Q20H [facility] Rx#:[id number] Intake, IV Titration 72.891 64.998 Amount Dexmedetomidine/0.9% NaCl 72.891 64.998 (Pmx) 400 mcg In Empty Bag 1 bag @ 0.2 MCG/KG/HR 3.7 mls/hr IV .Q24H [facility] Rx#:[id number] Oral 0 Output: Urine 145 105 Other: Voiding Method Indwelling Catheter Indwelling Catheter ABP, PAP, CO, CI - Last Documented Arterial Blood Pressure 125/73 - Labs CBC & Chem 7: 08/29/23 03:47 08/29/23 03:47 Labs: Abnormal Lab Results - Last 24 Hours (Table) 08/28/23 08/28/23 08/28/23 Range/Units 11:30 16:32 18:23 RBC (3.80-5.40) m/uL Hgb (11.4-16.0) gm/dL Hct (34.0-46.0) % MCHC (31.0-37.0) g/dL RDW (11.5-15.5) % Chloride 115 H (98-107) mmol/L Carbon Dioxide 20 L (22-30) mmol/L BUN 52 H (7-17) mg/dL Creatinine 2.65 H (0.52-1.04) mg/dL Glucose 261 H (74-99) mg/dL POC Glucose (mg/dL) 273 H 231 H (70-110) mg/dL Calcium 7.5 L (8.4-10.2) mg/dL ALT 74 H (4-34) U/L Alkaline Phosphatase 284 H (38-126) U/L Total Protein 5.1 L (6.3-8.2) g/dL Albumin 2.3 L (3.5-5.0) g/dL 08/28/23 08/29/23 08/29/23 Range/Units 20:12 03:47 03:47 RBC 2.90 L (3.80-5.40) m/uL Hgb 8.4 L (11.4-16.0) gm/dL Hct 27.4 L (34.0-46.0) % MCHC 30.7 L (31.0-37.0) g/dL RDW 18.1 H (11.5-15.5) % Chloride 117 H (98-107) mmol/L Carbon Dioxide 18 L (22-30) mmol/L BUN 54 H (7-17) mg/dL Creatinine 2.86 H (0.52-1.04) mg/dL Glucose 103 H (74-99) mg/dL POC Glucose (mg/dL) 242 H (70-110) mg/dL Calcium 7.6 L (8.4-10.2) mg/dL ALT (4-34) U/L Alkaline Phosphatase (38-126) U/L Total Protein (6.3-8.2) g/dL Albumin (3.5-5.0) g/dL Microbiology - Last 24 Hours (Table) 08/23/23 01:25 Blood Culture - Final Blood
[2023-08-29] MEDS ORDERED: IPRATROPIUM-ALBUTEROL 3 ML NEB INHALATION PRN (09:42)
--- NOTE | 2023-08-29 09:44 | P.PN ---
Subjective Patient is seen in follow-up for acute kidney injury. Renal function worse. No improvement in mentation. Urine output low. Vital signs are stable. General: Resting in bed. HEENT: On nasal cannula. LUNGS: No audible rhonchi or wheezes. HEART: Rate and Rhythm are regular. ABDOMEN: No distention. EXTREMITITES: 1+ edema. Objective - Vital Signs Vital signs: Vital Signs Temp 98.2 F 08/29/23 04:00 Pulse 61 08/29/23 07:00 Resp 13 08/29/23 07:00 BP 98/69 08/29/23 07:00 Pulse Ox 94 L 08/29/23 06:00 FiO2 40 08/25/23 11:38 Intake & Output 08/28/23 08/29/23 08/29/23 18:59 06:59 18:59 Intake Total 652.891 764.998 61.47 Output Total 145 105 5 Balance 507.891 659.998 56.47 Weight 78.8 kg Intake: IV 580 700 50 Invasive Line 5 90 Invasive Line 8 20 Lactated Ringers 1,000 ml 20 @ 50 mls/hr IV .Q20H [facility] Rx#:[id number] Piperacillin-Tazobactam 3 100 100 .375 gm In Sodium Chloride 0.9% 100 ml @ 25 mls/hr IVPB Q8H R[facility]IE Rx#: [id number] Sodium Chloride 0.45% 1, 50 000 ml @ 50 mls/hr IV . Q20H [facility]IE Rx#:[id number] Sodium Chloride 0.9% 1, 350 600 000 ml @ 50 mls/hr IV . Q20H [facility]IE Rx#:[id number] Intake, IV Titration 72.891 64.998 11.47 Amount Dexmedetomidine/0.9% NaCl 72.891 64.998 11.47 (Pmx) 400 mcg In Empty Bag 1 bag @ 0.2 MCG/KG/HR 3.7 mls/hr IV .Q24H [facility]IE Rx#:[id number] Oral 0 Output: Urine 145 105 5 Other: Voiding Method Indwelling Catheter Indwelling Catheter ABP, PAP, CO, CI - Last Documented Arterial Blood Pressure 125/73 - Labs CBC & Chem 7: 08/29/23 03:47 08/29/23 03:47 Labs: Abnormal Lab Results - Last 24 Hours (Table) 05/01/24 05/01/24 05/01/24 Range/Units 11:30 16:32 18:23 RBC (3.80-5.40) m/uL Hgb (11.4-16.0) gm/dL Hct (34.0-46.0) % MCHC (31.0-37.0) g/dL RDW (11.5-15.5) % Chloride 115 H (98-107) mmol/L Carbon Dioxide 20 L (22-30) mmol/L BUN 52 H (7-17) mg/dL Creatinine 2.65 H (0.52-1.04) mg/dL Glucose 261 H (74-99) mg/dL POC Glucose (mg/dL) 273 H 231 H (70-110) mg/dL Calcium 7.5 L (8.4-10.2) mg/dL ALT 74 H (4-34) U/L Alkaline Phosphatase 284 H (38-126) U/L Total Protein 5.1 L (6.3-8.2) g/dL Albumin 2.3 L (3.5-5.0) g/dL 08/28/23 08/29/23 08/29/23 Range/Units 20:12 03:47 03:47 RBC 2.90 L (3.80-5.40) m/uL Hgb 8.4 L (11.4-16.0) gm/dL Hct 27.4 L (34.0-46.0) % MCHC 30.7 L (31.0-37.0) g/dL RDW 18.1 H (11.5-15.5) % Chloride 117 H (98-107) mmol/L Carbon Dioxide 18 L (22-30) mmol/L BUN 54 H (7-17) mg/dL Creatinine 2.86 H (0.52-1.04) mg/dL Glucose 103 H (74-99) mg/dL POC Glucose (mg/dL) 242 H (70-110) mg/dL Calcium 7.6 L (8.4-10.2) mg/dL ALT (4-34) U/L Alkaline Phosphatase (38-126) U/L Total Protein (6.3-8.2) g/dL Albumin (3.5-5.0) g/dL Microbiology - Last 24 Hours (Table) 08/23/23 01:25 Blood Culture - Final Blood Assessment and Plan Plan: Assessment: 1. Acute kidney injury on chronic kidney disease secondary to ATN secondary to cardiorenal syndrome and cardiac arrest. Creatinine 1.5 admission and is up to 2.86 today. Patient was on hemodialysis in the past with last treatment being July 02, 2023. 2. Volume overload. 3. Acute on chronic diastolic CHF. 4. Diabetes mellitus. 5. Right foot wound. 6. Coronary disease with cardiac stenting. 7. Status post PEA arrest with concern for anoxic encephalopathy. 8. Septic shock with urine culture positive for E. coli and catheter tip culture positive for Corynebacterium. On antibiotics. Off vasopressors. 9. Metabolic acidosis secondary to acute kidney injury and IV fluids. On oral bicarb. 10. Anemia. Rule out iron deficiency. Plan: Lasix 40 mg IV once today. Avoid nephrotoxins. Continue to monitor renal function and urine output. Check iron studies. Continue to assess daily for need for renal replacement therapy.
[2023-08-29] MEDS: FUROSEMIDE 10 MG/ML 4 ML VIAL IV STA (09:49)
[2023-08-29] MEDS: SODIUM BICARB 8.4% 50 ML SYR (1 MEQ/ML) IV STA (09:58)
[2023-08-29 11:27] LABS: Glucose,Whole Blood 101 mg/dL (70-110)
--- NOTE | 2023-08-29 12:42 | XR ---
EXAMINATION TYPE: XR KUB portable DATE OF EXAM: 08/29/2023 COMPARISON: NONE HISTORY: Pain TECHNIQUE: One view abdominal series FINDINGS: The osseous structures are intact. The bowel gas pattern is nonspecific. Heart is enlarged and there is bilateral lower lobe consolidation and small effusion correlate with venous congestion or interst itial pneumonitis. Central catheter seen with the tip overlying the right atrium. Calcifications in the upper abdomen is nonspecific. Vascular calcifications are noted. There is a mil [id number] amount of retained stool burden. Chronic deformity of the right femur with postsurgical change. Diffuse osteopenia.. IMPRESSION: 1. Nonspecific abdomen. No obstruction. Mild to moderate stool burden. 2. Correlate for CHF otherwise consider pneumonia.
--- NOTE | 2023-08-29 13:54 | P.PN ---
Subjective 57-year-old female came in with complaints of shortness of breath and orthopnea found to be in congestive heart failure exacerbation patient has congestive heart failure with reduced ejection fraction in the past patient has increasing pedal edema. Patient also has an ulcer in the right foot stage III-IV which appeared to be infected we will consult wound care and infectious disease. Patient was on hemodialysis during last hospitalization her creatinine presently is 1.5 which is significantly improved patient potassium is 5.5, patient is on Entresto and Aldactone Aldactone will be held Entresto will be continued since she is receiving IV Lasix and expecting her potassium to improve if it does not improve or get worse then Entresto need to be discontinued as well. Patient has hypervolemic hyponatremia and hyperglycemia. 08/21/2023 Was evaluated today on the medical floor. Patient was continued on IV Lasix overnight however she was no longer reporting any shortness of breath and her lower extremity edema has improved. She was taken off of the Lasix at this time due to increased creatinine up to 2.31 additionally potassium remains elevated at 5.7. Echocardiogram comes back showing an improved ejection fraction of 60 to 65% because of this and also the hyperkalemia patient will not be continued on entresto. Patient was evaluated by infectious disease who felt like that heel ulcer on the right side was more likely a pressure injury stage III and is recommending local wound care to continue with Aquacel. Patient is reporting significant pain to the right foot and feels like it is fractured. Upon review of the patient's chart she did have a x-ray completed of this 12 days ago ordered by her advanced practice registered nurse Dr. Mayen. Ankle x-ray did review a mildly displaced acute distal fibular fracture. Repeat x-ray of the foot and ankle completed today does reveal a subacute fractures of the medial and lateral malleolus. The lateral malleolus fracture was seen on the patient's prior exam the medial malleolus fracture may be new in the interval and this would be considered an unstable ankle fracture. There is interval 6 mm displacement of the lateral malleolus. There is a deep soft tissue ulcer at the plantar heel with no clear radiographic findings of a contagious osteomyelitis at this time. Orthooedics was consulted for this. 08/22/2023 Patient evaluated in follow-up today resting in bed. She was taken off of the Lasix remains off at this time. Bladder scan was requested and not done yesterday to rule out urinary retention, creatinine today is increased up to 2.56. Bladder scan was done require urinary straight catheterization of 550 mL taken out. Urinalysis was sent which is significantly abnormal. Patient is also noted to have multiple genital lesions which appear wartlike she admits to not having any routine gynecological screenings for many years. She is not having any vaginal bleeding or discharge. Renal ultrasound has been ordered to rule out any obstructive uropathy. 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 Patient upon arrival to the intensive care unit had another episode of cardiac arrest patient had bradycardia while on pressors in the ICU patient was intubated following the first cardiac arrest and is currently on the mechanical ventilator 50% FiO2. Chest x-ray showing similar interstitial and patchy component airspace disease right greater than left. There is a possible trace left pleural effusion. A brain CT which shows no acute intracranial process. Blood work today shows a white blood cell count of 13.8, hemoglobin 9.5, sodium level of 135, BUN of 62, creatinine of 2.76. AST ALT and alk phosphatase are significantly elevated consistent with a shock liver. TSH 3.310. Urinalysis is abnormal. Her urine culture is showing gram-negative bacilli patient is covered for the urinary tract infection as well as aspiration with IV Zosyn being managed by infectious disease. Patient is currently sedated with propofol and did require vasopressor support with Levophed which has been weaned at this time. Will discontinue the gabapentin patient is continued on aspirin Plavix and statin has been placed on hold. There is concern for possible arrhythmia precipitating the asystole additionally we need to rule out embolism and a D-dimer has been ordered. 08/24/2023 Patient is seen in follow-up today continues in the ICU on mechanical ventilation. FiO2 is 50% although titrating and was just placed at 40% with a PEEP of 5. Chest x-ray today shows that the ET tube is 7 mm from the sonam suggesting a pulled back 2 cm and reassess and also suspected underlying vascular congestion. Neuro is following and per nursing staff patient is following some simple commands and undergoing sedation holidays. Patient noted to have reduced EF of 30 to 35% and cardiology had been following. Will reconsult and appreciate input and recommendations. patient did have dialysis catheter removed and sent for cultures which are pending. Infectious disease following and patient is maintained on antibiotic. D-dimer is elevated above 16 and will attempt to obtain a VQ scan.57-year-old female came in with complaints of shortness of breath and orthopnea found to be in congestive heart failure exacerbation patient has congestive heart failure with reduced ejection fraction in the past patient has increasing pedal edema. Patient also has an ulcer in the right foot stage III-IV which appeared to be infected we will consult wound care and infectious disease. Patient was on hemodialysis during last hospi talization her creatinine presently is 1.5 which is significantly improved patient potassium is 5.5, patient is on Entresto and Aldactone Aldactone will be held Entresto will be continued since she is receiving IV Lasix and expecting her potassium to improve if it does not improve or get worse then Entresto need to be discontinued as well. Patient has hypervolemic hyponatremia and hyperglycemia. 08/21/2023 Was evaluated today on the medical floor. Patient was continued on IV Lasix overnight however she was no longer reporting any shortness of breath and her lower extremity edema has improved. She was taken off of the Lasix at this time due to increased creatinine up to 2.31 additionally potassium remains elevated at 5.7. Echocardiogram comes back showing an improved ejection fraction of 60 to 65% because of this and also the hyperkalemia patient will not be continued on entresto. Patient was evaluated by infectious disease who felt like that heel ulcer on the right side was more likely a pressure injury stage III and is recommending local wound care to continue with Aquacel. Patient is reporting significant pain to the right foot and feels like it is fractured. Upon review of the patient's chart she did have a x-ray completed of this 12 days ago ordered by her advanced practice registered nurse Dr. Mayen. Ankle x-ray did review a mildly displaced acute distal fibular fracture. Repeat x-ray of the foot and ankle completed today does reveal a subacute fractures of the medial and lateral malleolus. The lateral malleolus fracture was seen on the patient's prior exam the medial malleolus fracture may be new in the interval and this would be considered an unstable ankle fracture. There is interval 6 mm displacement of the lateral malleolus. There is a deep soft tissue ulcer at the plantar heel with no clear radiographic findings of a contagious osteomyelitis at this time. Orthooedics was consulted for this. 08/22/2023 Patient evaluated in follow-up today resting in bed. She was taken off of the Lasix remains off at this time. Bladder scan was requested and not done yesterday to rule out urinary retention, creatinine today is increased up to 2.56. Bladder scan was done require urinary straight catheterization of 550 mL taken out. Urinalysis was sent which is significantly abnormal. Patient is also noted to have multiple genital lesions which appear wartlike she admits to not having any routine gynecological screenings for many years. She is not having any vaginal bleeding or discharge. Renal ultrasound has been ordered to rule out any obstructive uropathy. 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 Patient upon arrival to the intensive care unit had another episode of cardiac arrest patient had bra dycardia while on pressors in the ICU patient was intubated following the first cardiac arrest and is currently on the mechanical ventilator 50% FiO2. Chest x- ray showing similar interstitial and patchy component airspace disease right greater than left. There is a possible trace left pleural effusion. A brain CT which shows no acute intracranial process. Blood work today shows a white blood cell count of 13.8, hemoglobin 9.5, sodium level of 135, BUN of 62, creatinine of 2.76. AST ALT and alk phosphatase are significantly elevated consistent with a shock liver. TSH 3.310. Urinalysis is abnormal. Her urine culture is showing gram-negative bacilli patient is covered for the urinary tract infection as well as aspiration with IV Zosyn being managed by infectious disease. Patient is currently sedated with propofol and did require vasopressor support with Levophed which has been weaned at this time. Will discontinue the gabapentin patient is continued on aspirin Plavix and statin has been placed on hold. There is concern for possible arrhythmia precipitating the asystole additionally we need to rule out embolism and a D-dimer has been ordered. 08/24/2023 Patient is seen in follow-up today continues in the ICU on mechanical ventilation. FiO2 is 50% although titrating and was just placed at 40% with a PEEP of 5. Chest x-ray today shows that the ET tube is 7 mm from the sonam suggesting a pulled back 2 cm and reassess and also suspected underlying vascular congestion. Neuro is following and per nursing staff patient is following some simple commands and undergoing sedation holidays. Patient noted to have reduced EF of 30 to 35% and cardiology had been following. Will reconsult and appreciate input and recommendations. patient did have dialysis catheter removed and sent for cultures which are pending. Infectious disease following and patient is maintained on antibiotic. D-dimer is elevated above 16 and will attempt to obtain a VQ scan. 08/25/23 : Patient seen and evaluated at bedside, patient extubated around noon, transition to 5 L of oxygen to nasal cannula. Family at bedside, blood work reviewed hemoglobin 10.3, serum chemistry reviewed sodium 140 potassium 4.8 BUN 57 creatinine 2.49 calcium of 7. 08/26/23 : Patient seen and evaluated at bedside, patient remains in medical ICU, does complain of chest pain from CPR. Patient has been weaned off dopamine, cardiology following, blood work reviewed, hemoglobin 8.5 platelet count of 217, serum chemistry shows sodium 141 BUN 51 creatinine 2.28. Followed up by nephrology as well MARYLOU secondary to ATN continue to monitor intake and output 08/27/23: Patient seen and evaluated bedside, on evaluation patient is disoriented, patient is drowsy however likely having acute delirium. Seen by cardiology echocardiogram shows preserved ejection fraction continue with current medical management, patient on Precedex for acute delirium, continue to remain on oxygen supplementation with nasal cannula blood work reviewed CBC showed WBC 8.2 hemoglobin 8.6 serum chemistry showed creatinine of 2.22. Cande ent remains delirious, daughter at bedside all questions answered 08/28/2023 Patient was agitated earlier requiring Seroquel and Placed on Precedex because she was has risk to self and others Currently when I saw the patient she was sleepy However she is not tachypneic show does not look in pain. Vitals are stable She is saturating 91% on 2 L oxygen via nasal cannula She remains on Zosyn for pneumonia and UTI She is on normal saline at 50 mL/h 08/29/2023 Patient remains sleepy, she still has some encephalopathy But she is on Precedex which will be tapered off by pulmonary team today to assess her mentation as well. Patient has been followed by neurology for suspected anoxic brain injury after her cardiac arrest and return of circulation on 08/22. There is no evidence of seizure-like activity She has catheter tip infection with culture growing Corynebacterium species and she is currently covered with Zosyn which also help for her right heel pressure ulcer and aspiration pneumonia and UTI. Cardiology evaluated the patient and there is no clear evidence for her cardiac arrest although she has history of coronary artery disease and previous stents. Currently with no chest pain. She remains on aspirin and Plavix, gentle hydration, IV steroids Objective - Vital Signs Vital signs: Vital Signs Temp 97.0 F L 08/29/23 12:00 Pulse 71 08/29/23 12:00 Resp 16 08/29/23 12:00 BP 112/69 08/29/23 12:00 Pulse Ox 96 08/29/23 12:00 FiO2 40 08/25/23 11:38 Intake & Output 08/28/23 08/29/23 08/29/23 18:59 06:59 18:59 Intake Total 652.891 764.998 339.487 Output Total 145 105 85 Balance 507.891 659.998 254.487 Weight 78.8 kg Intake: IV 580 700 320 Invasive Line 5 90 Invasive Line 8 20 20 Lactated Ringers 1,000 ml 20 @ 50 mls/hr IV .Q20H [facility] Rx#:[id number] Piperacillin-Tazobactam 3 100 100 .375 gm In Sodium Chloride 0.9% 100 ml @ 25 mls/hr IVPB Q8H [facility] Rx#: [id number] Sodium Chloride 0.45% 1, 300 000 ml @ 50 mls/hr IV . Q20H [facility] Rx#:[id number] Sodium Chloride 0.9% 1, 350 600 000 ml @ 50 mls/hr IV . Q20H [facility] Rx#:[id number] Intake, IV Titration 72.891 64.998 19.487 Amount Dexmedetomidine/0.9% NaCl 72.891 64.998 19.487 (Pmx) 400 mcg In Empty Bag 1 bag @ 0.2 MCG/KG/HR 3.7 mls/hr IV .Q24H [facility] Rx#:[id number] Oral 0 0 Output: Urine 145 105 85 Other: Voiding Method Indwelling Catheter Indwelling Catheter Indwelling Catheter # Bowel Movements 0 ABP, PAP, CO, CI - Last Documented Arterial Blood Pressure 125/73 - Exam -GENERAL: The patient is sleepy HEENT: Pupils are round and equally reacting to light. EOMI. No scleral icterus. No conjunctival pallor. Normocephalic, atraumatic. No pharyngeal erythema. No thyromegaly. CARDIOVASCULAR: S1 and S2 present. No murmurs, rubs, or gallops. PULMONARY: Chest is clear to auscultation, no wheezing , no crackles. ABDOMEN: Soft, nontender, nondistended, normoactive bowel sounds. No palpable organomegaly. MUSCULOSKELETAL: No joint swelling or deformity. EXTREMITIES: No cyanosis, clubbing, or pedal edema. NEUROLOGICAL: Gross neurological examination did not reveal any focal deficits. SKIN: No rashes. no petechiae. - Labs CBC & Chem 7: 08/29/23 03:47 08/29/23 03:47 Labs: Abnormal Lab Results - Last 24 Hours (Table) 08/28/23 08/28/23 08/28/23 Range/Units 16:32 18:23 20:12 RBC (3.80-5.40) m/uL Hgb (11.4-16.0) gm/dL Hct (34.0-46.0) % MCHC (31.0-37.0) g/dL RDW (11.5-15.5) % Chloride 115 H (98-107) mmol/L Carbon Dioxide 20 L (22-30) mmol/L BUN 52 H (7-17) mg/dL Creatinine 2.65 H (0.52-1.04) mg/dL Glucose 261 H (74-99) mg/dL POC Glucose (mg/dL) 231 H 242 H (70-110) mg/dL Calcium 7.5 L (8.4-10.2) mg/dL ALT 74 H (4-34) U/L Alkaline Phosphatase 284 H (38-126) U/L Total Protein 5.1 L (6.3-8.2) g/dL Albumin 2.3 L (3.5-5.0) g/dL 08/29/23 08/29/23 Range/Units 03:47 03:47 RBC 2.90 L (3.80-5.40) m/uL Hgb 8.4 L (11.4-16.0) gm/dL Hct 27.4 L (34.0-46.0) % MCHC 30.7 L (31.0-37.0) g/dL RDW 18.1 H (11.5-15.5) % Chloride 117 H (98-107) mmol/L Carbon Dioxide 18 L (22-30) mmol/L BUN 54 H (7-17) mg/dL Creatinine 2.86 H (0.52-1.04) mg/dL Glucose 103 H (74-99) mg/dL POC Glucose (mg/dL) (70-110) mg/dL Calcium 7.6 L (8.4-10.2) mg/dL ALT (4-34) U/L Alkaline Phosphatase (38-126) U/L Total Protein (6.3-8.2) g/dL Albumin (3.5-5.0) g/dL Microbiology - Last 24 Hours (Table) 08/23/23 01:25 Blood Culture - Final Blood Assessment and Plan Assessment: * Asystole/cardiopulmonary arrest x 2 with CPR/ROSC * Respiratory failure requiring intubation s/p extubation 08/25/2023 * Acute metabolic encephalopathy * Congestive heart failure with systolic dysfunction acute on chronic exacerbation * Ischemic cardiomyopathy with improved EF * Acute kidney injury secondary to ATN on chronic kidney disease stage III * Urinary tract infection with E. coli * Subacute fracture of the medial and lateral malleolus, orthopedics following * Right heel stage III pressure injury continue local wound care with aquacel ID following. 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 DVT prophylaxis: Subcutaneous heparin GI Prophylaxis: Pepcid Prognosis is guarded
[2023-08-29] MEDS: DOCUSATE 100 MG CAP PO SCH (15:43)
[2023-08-29] MEDS: ACETAMINOPHEN TAB 325 MG TAB PO PRN (15:43)
[2023-08-29 15:55] LABS: % Iron Saturation 15.82 (12.00-45.00)
[2023-08-29 16:02] LABS: Glucose,Whole Blood 103 mg/dL (70-110)
[2023-08-29] MEDS: HALOPERIDOL LACTATE 5 MG/ML 1 ML VIAL IVP PRN (18:35)
--- NOTE | 2023-08-29 18:47 | XR ---
EXAMINATION TYPE: XR chest 1V portable DATE OF EXAM: 08/29/2023 COMPARISON: 08/26/2023 HISTORY: Dyspnea TECHNIQUE: Single frontal view of the chest is obtained. FINDINGS: Exam is limited by poor inspiration and portable technique. The heart appears mildly prominent. Pulmonary vasculature appears mildly congested. There is no large pleural effusion or pneumothorax. There is a PICC line entering the left jugular vein. The tip is in the right atrium unchanged in posi tion. There is no consolidative or masslike opacity. IMPRESSION: Limited by poor inspiration and portable technique. The findings suggest mild CHF.
[2023-08-29 20:30] LABS: Glucose,Whole Blood 186 mg/dL (70-110)
[2023-08-29] MEDS: PIPERACILLIN-TAZOBACTAM 3.375 GM in SODIUM CHLORIDE 0.9% 100 ML IVPB SCH (20:35)
[2023-08-29] MEDS: QUEtiapine 50 MG TAB PO SCH (20:37)
--- NOTE | 2023-08-29 21:25 | EEG ---
ELECTROENCEPHALOGRAM REPORT PREAMBLE: This is a 57-year-old female with recent cardiac arrest. Patient has persistent encephalopathy. This is a followup EEG. The patient is currently on Precedex 0.5. When she is not sedated, she screams and thrashes in bed. This study is performed to rule out any epileptiform activity. EEG FINDINGS: This is a 21-channel digital EEG recorded with video component, utilizing 10/20 international system with referential and bipolar montages. The recording starts with patient being drowsy, with presence of diffuse bilaterally symmetric theta frequency rhythm intermixed with some delta waves. During later part of the study, the patient apparently did wake up and was crying during which time there was much well- formed posterior dominant, mixed theta, with some alpha activity was seen in posterior head region. The background does not seem to be clearly reactive to eye opening and closing. Photic stimulation was not done. No focal or generalized epileptiform activity was seen. During middle part of the study, some stage 2 sleep was seen with presence of sleep spindles. EKG channel showed no obvious arrhythmia. IMPRESSION: This is an abnormal EEG due to background slowing of mild to moderate degree. This is suggestive of generalized cerebral dysfunction as can be seen with toxic metabolic encephalopathy or related to diffuse structural brain abnormality. Clinical correlation is recommended. When compared to the previous EEG from 08/23/2023, the background has remarkably improved. MMSUKUMARL / TRIPPN: [id number] / MTDD
[2023-08-30 06:05] LABS: African American GFR (CKD) 19 (>60 ml/min/1.73 sqM); Anion Gap 10 mmol/L; Blood Urea Nitrogen 56 mg/dL (7-17); Calcium 7.8 mg/dL (8.4-10.2); Carbon Dioxide 18 mmol/L (22-30); Chloride 114 mmol/L (98-107); Glucose 146 mg/dL (74-99); Non-African American GFR(CKD) 17 (>60 ml/min/1.73 sqM); Sodium 142 mmol/L (137-145)
[2023-08-30 06:40] LABS: Glucose,Whole Blood 154 mg/dL (70-110)
--- NOTE | 2023-08-30 07:18 | P.PN ---
Subjective Progress Note Date: 08/30/23 History of Present Illness: The patient is a 57-year-old female with known history of hypertension, hyperl ipidemia, diabetes mellitus as well as a history of coronary disease status post stenting of the RCA and chronic kidney disease who presented with dyspnea and had a cardiopulmonary arrest requiring CPR and mechanical ventilation. She is extubated, complaining of chest wall tenderness post CPR. She continues to be in sinus mechanism and hemodynamically stable. She had some bradycardia earlier and was started on IV dopamine. She is in sinus mechanism with no further bradycardia. Her urinary output has been stable. Her initial echo on presentation showed a preserved systolic function subsequently was found to have cardiomyopathy but that was done shortly after the event. She has a subacute fracture of the medial and lateral malleolus on the right side. August 26: The patient is sedated, she was quite agitated during the night. She had few episodes of sinus bradycardia, brief. She had no evidence of high-grade AV block. Her urinary output is stable. Her blood pressure is under good control without any vasopressors. Her repeat echocardiogram showed a preserved systolic function. She has been evaluated by neurology for possible anoxic encephalopathy. August 27: The patient is awake, confused. In sinus mechanism with no further episodes of high-grade AV block. Her blood pressure is stable. Her urinary output stable. There is no evidence of atrial fibrillation or ventricular ectopic activity. Repeat echocardiogram showed a normal left ventricle systolic function. August 28: The patient is sedated. She was agitated and confused during the night. She had no further episodes of bradycardia arrhythmia. Her blood pressure has been stable. She continues to be intubated. She is undergoing an EEG to evaluate her neurological status. There is no evidence of atrial fibrillation or ventricular tachyarrhythmia. August 29: The patient is more awake continues to have some episodes of confusion. She continues to be in sinus mechanism with no arrhythmia. Her EEG showed some i mprovement. Her urinary output has been good. Her blood pressure is stable and there is no evidence of significant hypotension. Medications: Aspirin, amlodipine 5 mg daily, Plavix 75 mg daily, insulin, Lipitor 40 mg daily, isosorbide mononitrate 30 mg daily, insulin Physical Examination: 57-year-old female, awake with some confusion, improved,Blood pressure 147/60, Heart rate 80 Head: Normocephalic. Eyes: Sclerae nonicteric. Neck: Good carotid upstroke, no bruit, no jugular venous distention. Lungs: Clear anteriorly Heart: Regular rate and rhythm, S1-S2, no S3, no rub. No murmur. Abdomen: Soft , positive bowel sounds no organomegaly. Extremities: Trace edema on the left, intact distal pulses. Cast on the right lower extremity Labs: BUN 56, creatinine 2.98, potassium 5.0. Impression: 1. Status post cardiopulmonary arrest, etiology unclear. No clear evidence of acute ischemic event. 2. Status post stenting of the RCA during prior admission 3. Chronic kidney disease 4. Chest wall discomfort, stable 5. History of hyperlipidemia 6. History of hypertension 7. Bradycardia resolved 8. History of diabetes 9. Cardiomyopathy resolved 10. Anoxic encephalopathy, postarrest, improving Plan: 1. Continue present therapy and follow blood pressure 2. Increase physical activity and physical therapy 3. We will see her on as-needed basis, please feel free to call us for any question Objective - Vital Signs Vital signs: Vital Signs Temp 97.6 F 08/30/23 04:00 Pulse 89 08/30/23 07:00 Resp 15 08/30/23 07:00 BP 147/66 08/30/23 06:00 Pulse Ox 94 L 08/30/23 07:00 FiO2 40 08/25/23 11:38 Intake & Output 08/29/23 08/30/23 08/30/23 18:59 06:59 18:59 Intake Total 939.487 580 50 Output Total 200 395 35 Balance 739.487 185 15 Intake: IV 680 580 50 Invasive Line 8 30 30 Sodium Chloride 0.45% 1, 650 550 50 000 ml @ 50 mls/hr IV . Q20H [facility] Rx#:[id number] Intake, IV Titration 19.487 Amount Dexmedetomidine/0.9% NaCl 19.487 (Pmx) 400 mcg In Empty Bag 1 bag @ 0.2 MCG/KG/HR 3.7 mls/hr IV .Q24H [facility] Rx#:[id number] Oral 240 Output: Urine 200 395 35 Other: Voiding Method Indwelling Catheter Indwelling Catheter # Bowel Movements 0 ABP, PAP, CO, CI - Last Documented Arterial Blood Pressure 125/73 - Labs CBC & Chem 7: 08/29/23 03:47 08/30/23 05:18 Labs: Abnormal Lab Results - Last 24 Hours (Table) 08/29/23 08/29/23 08/30/23 Range/Units 03:47 20:28 05:18 Chloride 114 H (98-107) mmol/L Carbon Dioxide 18 L (22-30) mmol/L BUN 56 H (7-17) mg/dL Creatinine 2.98 H (0.52-1.04) mg/dL Glucose 146 H (74-99) mg/dL POC Glucose (mg/dL) 186 H (70-110) mg/dL Calcium 7.8 L (8.4-10.2) mg/dL Iron 31 L (50-170) UG/DL TIBC 196 L (228-460) UG/DL Transferrin 140.0 L (204.0-354.0) mg/dL Ferritin 479.0 H (10.0-291.0) ng/mL 08/30/23 Range/Units 06:39 Chloride (98-107) mmol/L Carbon Dioxide (22-30) mmol/L BUN (7-17) mg/dL Creatinine (0.52-1.04) mg/dL Glucose (74-99) mg/dL POC Glucose (mg/dL) 154 H (70-110) mg/dL Calcium (8.4-10.2) mg/dL Iron (50-170) UG/DL TIBC (228-460) UG/DL Transferrin (204.0-354.0) mg/dL Ferritin (10.0-291.0) ng/mL
--- NOTE | 2023-08-30 09:13 | P.PN ---
Subjective Progress Note Date: 08/27/23 Principal diagnosis: Reason for follow-up is right heel diabetic foot ulcer Patient is a 57-year-old female with a past medical history significant for diabetes mellitus hypertension hyperlipidemia history of renal insufficiency requiring dialysis currently not on dialysis and the patient also have a chronic nonhealing wound to the right heel area, present to the hospital with increasing shortness of breath and swelling concerning for fluid overload.Patient did have a cardiac arrest around 4 AM 08/23/2023 with the patient went into asystole got resuscitated intubated and transferred to the ICU subsequently have another cardiac arrest with PEA rhythm not resuscitated. On today's evaluation that is 08/27/2023,the patient remains to be afebrile, patient is on 3 L nasal cannula supplemental oxygen and denies any shortness of breath has been complaining of some chest pain for compression did have a cough not bring up any sputum no abdominal pain or diarrhea has been reported Patient will follow 8.2, creatinine is 2.22 Objective - Vital Signs Vital signs: Vital Signs Temp 96.2 F L 08/27/23 08:00 Pulse 57 L 08/27/23 09:00 Resp 16 08/27/23 08:00 BP 132/70 08/27/23 09:00 Pulse Ox 96 08/27/23 09:00 FiO2 40 08/25/23 11:38 Intake & Output 08/26/23 08/27/23 08/27/23 18:59 06:59 18:59 Intake Total 644.360 716.342 401.635 Output Total 380 275 182 Balance 264.360 441.342 219.635 Weight 74 kg 76.1 kg Intake: IV 550 600 260 Lactated Ringers 1,000 ml 150 600 260 @ 50 mls/hr IV .Q20H [facility] Rx#:[id number] Sodium Chloride 0.9% 1, 400 000 ml @ 50 mls/hr IV . Q20H [facility] Rx#:[id number] Intake, IV Titration 94.360 116.342 31.635 Amount Dexmedetomidine/0.9% NaCl 54.360 116.342 31.635 (Pmx) 400 mcg In Empty Bag 1 bag @ 0.2 MCG/KG/HR 3.7 mls/hr IV .Q24H [facility] Rx#:[id number] Sodium Chloride 0.9% 1, 40 000 ml @ 50 mls/hr IV . Q20H [facility] Rx#:[id number] Oral 110 Output: Urine 380 275 182 Other: Voiding Method Indwelling Catheter Indwelling Catheter ABP, PAP, CO, CI - Last Documented Arterial Blood Pressure 150/59 - Exam GENERAL DESCRIPTION: Middle-aged female intubated on the vent RESPIRATORY SYSTEM: Unlabored breathing , decreased breath sounds at bases HEART: S1 S2 regular rate and rhythm , ABDOMEN: Soft , no tenderness EXTREMITIES: Right heel wound is currently dressed - Labs CBC & Chem 7: 08/29/23 03:47 08/30/23 05:18 Labs: Abnormal Lab Results - Last 24 Hours (Table) 08/26/23 08/27/23 08/27/23 Range/Units 16:59 04:45 04:45 RBC 3.02 L (3.80-5.40) m/uL Hgb 8.6 L (11.4-16.0) gm/dL Hct 28.3 L (34.0-46.0) % MCHC 30.3 L (31.0-37.0) g/dL RDW 17.2 H (11.5-15.5) % Chloride 114 H (98-107) mmol/L Carbon Dioxide 18 L (22-30) mmol/L BUN 48 H (7-17) mg/dL Creatinine 2.22 H (0.52-1.04) mg/dL Glucose 171 H (74-99) mg/dL POC Glucose (mg/dL) 144 H (70-110) mg/dL Calcium 8.1 L (8.4-10.2) mg/dL ALT 119 H (4-34) U/L Alkaline Phosphatase 314 H (38-126) U/L Total Protein 5.4 L (6.3-8.2) g/dL Albumin 2.5 L (3.5-5.0) g/dL 08/27/23 Range/Units 11:11 RBC (3.80-5.40) m/uL Hgb (11.4-16.0) gm/dL Hct (34.0-46.0) % MCHC (31.0-37.0) g/dL RDW (11.5-15.5) % Chloride (98-107) mmol/L Carbon Dioxide (22-30) mmol/L BUN (7-17) mg/dL Creatinine (0.52-1.04) mg/dL Glucose (74-99) mg/dL POC Glucose (mg/dL) 171 H (70-110) mg/dL Calcium (8.4-10.2) mg/dL ALT (4-34) U/L Alkaline Phosphatase (38-126) U/L Total Protein (6.3-8.2) g/dL Albumin (3.5-5.0) g/dL Microbiology - Last 24 Hours (Table) 08/23/23 01:25 Blood Culture - Preliminary Blood Assessment and Plan (1) Pressure ulcer of right heel, stage 3 Current Visit: No Status: Acute Code(s): L89.613 - PRESSURE ULCER OF RIGHT HEEL, STAGE 3 SNOMED Code(s): 20991678739683 (2) Type 2 diabetes mellitus with foot ulcer Current Visit: No Status: Acute Code(s): E11.621 - TYPE 2 DIABETES MELLITUS WITH FOOT ULCER; L97.509 - NON-PRESSURE CHRONIC ULCER OTH PRT UNSP FOOT W UNSP SEVERITY SNOMED Code(s): 323613590 (3) UTI (urinary tract infection) Current Visit: Yes Status: Acute Code(s): N39.0 - URINARY TRACT INFECTION, SITE NOT SPECIFIED SNOMED Code(s): 14651279 (4) Aspiration pneumonia Current Visit: Yes Status: Acute Code(s): J69.0 - PNEUMONITIS DUE TO INHALATION OF FOOD AND VOMIT SNOMED Code(s): 613205127 Plan: 1patient with chronic nonhealing wound to the right heel area which has been there for a couple of months now patient overall wound base looks clean with no slough tissue in the wound is not pulling out the wound more likely a pressure ulcer stage III with evidence of any secondary cellulitis, local wound care has been switched over to the wound VAC to continue management per wound care 2-patient did have cardiac arrest requiring resuscitation in this patient who did have a chest x-ray with a right-sided infiltrate and question of aspiration pneumonia urine culture grew E. coli with some resistant pattern, sputum has been negative blood culture currently pending catheter tip cultures growing corynebacterium species more likely contamination with a blood culture negative no need for vancomycin. 3patient is afebrile white count is down to normal patient to continue with Zosyn to continue and monitor clinical course closely Dictation was produced using [employer] dictation software. please excuse any grammatical, word or spelling errors. Time with Patient: Less than 30
--- NOTE | 2023-08-30 09:14 | P.PN ---
Subjective Progress Note Date: 08/28/23 Principal diagnosis: Reason for follow-up is right heel diabetic foot ulcer Patient is a 57-year-old female with a past medical history significant for diabetes mellitus hypertension hyperlipidemia history of renal insufficiency requiring dialysis currently not on dialysis and the patient also have a chronic nonhealing wound to the right heel area, present to the hospital with increasing shortness of breath and swelling concerning for fluid overload.Patient did have a cardiac arrest around 4 AM 08/23/2023 with the patient went into asystole got resuscitated intubated and transferred to the ICU subsequently have another cardiac arrest with PEA rhythm not resuscitated. On today's evaluation that is 08/28/2023, the patient continues to be afebrile, the patient is on 2 L nasal cannula oxygen and breathing comfortably, the Pt denies any worsening chest pain or cough, the patient denies having any abdominal pain no vomiting or any diarrhea has been reported by the nursing staff. Patient white count is 7.1, creatinine 2.65 Objective - Vital Signs Vital signs: Vital Signs Temp 96.6 F L 08/28/23 12:00 Pulse 57 L 08/28/23 12:00 Resp 14 08/28/23 12:00 BP 117/66 08/28/23 12:00 Pulse Ox 98 08/28/23 12:00 FiO2 40 08/25/23 11:38 Intake & Output 08/27/23 08/28/23 08/28/23 18:59 06:59 18:59 Intake Total 968.924 592.479 249.096 Output Total 272 380 105 Balance 696.924 212.479 144.096 Weight 77.9 kg Intake: IV 450 340 240 Invasive Line 5 60 Invasive Line 8 10 Lactated Ringers 1,000 ml 350 240 20 @ 50 mls/hr IV .Q20H [facility] Rx#:[id number] Piperacillin-Tazobactam 3 100 100 100 .375 gm In Sodium Chloride 0.9% 100 ml @ 25 mls/hr IVPB Q8H [facility] Rx#: [id number] Sodium Chloride 0.9% 1, 50 000 ml @ 50 mls/hr IV . Q20H [facility] Rx#:[id number] Intake, IV Titration 58.924 252.479 9.096 Amount Dexmedetomidine/0.9% NaCl 58.924 152.479 9.096 (Pmx) 400 mcg In Empty Bag 1 bag @ 0.2 MCG/KG/HR 3.7 mls/hr IV .Q24H [facility] Rx#:[id number] Piperacillin-Tazobactam 3 100 .375 gm In Sodium Chloride 0.9% 100 ml @ 25 mls/hr IVPB Q8H [facility] Rx#: [id number] Oral 460 0 Output: Urine 272 380 105 Other: Voiding Method Indwelling Catheter Indwelling Catheter Indwelling Catheter ABP, PAP, CO, CI - Last Documented Arterial Blood Pressure 125/73 - Exam GENERAL DESCRIPTION: Middle-aged female intubated on the vent RESPIRATORY SYSTEM: Unlabored breathing , decreased breath sounds at bases HEART: S1 S2 regular rate and rhythm , ABDOMEN: Soft , no tenderness EXTREMITIES: Right heel wound is currently dressed - Labs CBC & Chem 7: 08/29/23 03:47 08/30/23 05:18 Labs: Abnormal Lab Results - Last 24 Hours (Table) 08/27/23 08/28/23 08/28/23 Range/Units 20:09 04:43 04:43 RBC 3.12 L (3.80-5.40) m/uL Hgb 8.7 L (11.4-16.0) gm/dL Hct 29.2 L (34.0-46.0) % MCHC 29.9 L (31.0-37.0) g/dL RDW 17.5 H (11.5-15.5) % Lymphocytes # 0.4 L (1.0-4.8) k/uL Chloride 113 H (98-107) mmol/L Carbon Dioxide 21 L (22-30) mmol/L BUN 50 H (7-17) mg/dL Creatinine 2.45 H (0.52-1.04) mg/dL Glucose 350 H (74-99) mg/dL POC Glucose (mg/dL) 302 H (70-110) mg/dL Calcium 7.7 L (8.4-10.2) mg/dL 08/28/23 08/28/23 Range/Units 06:14 11:30 RBC (3.80-5.40) m/uL Hgb (11.4-16.0) gm/dL Hct (34.0-46.0) % MCHC (31.0-37.0) g/dL RDW (11.5-15.5) % Lymphocytes # (1.0-4.8) k/uL Chloride (98-107) mmol/L Carbon Dioxide (22-30) mmol/L BUN (7-17) mg/dL Creatinine (0.52-1.04) mg/dL Glucose (74-99) mg/dL POC Glucose (mg/dL) 353 H 273 H (70-110) mg/dL Calcium (8.4-10.2) mg/dL Assessment and Plan (1) Pressure ulcer of right heel, stage 3 Current Visit: No Status: Acute Code(s): L89.613 - PRESSURE ULCER OF RIGHT HEEL, STAGE 3 SNOMED Code(s): 57458976144347 (2) Type 2 diabetes mellitus with foot ulcer Current Visit: No Status: Acute Code(s): E11.621 - TYPE 2 DIABETES MELLITUS WITH FOOT ULCER; L97.509 - NON-PRESSURE CHRONIC ULCER OTH PRT UNSP FOOT W UNSP SEVERITY SNOMED Code(s): 948257360 (3) UTI (urinary tract infection) Current Visit: Yes Status: Acute Code(s): N39.0 - URINARY TRACT INFECTION, SITE NOT SPECIFIED SNOMED Code(s): 95973998 (4) Aspiration pneumonia Current Visit: Yes Status: Acute Code(s): J69.0 - PNEUMONITIS DUE TO INHALATION OF FOOD AND VOMIT SNOMED Code(s): 490827797 Plan: 1patient with chronic nonhealing wound to the right heel area which has been there for a couple of months now patient overall wound base looks clean with no slough tissue in the wound is not pulling out the wound more likely a pressure ulcer stage III with evidence of any secondary cellulitis, local wound care has been switched over to the wound VAC to continue management per wound care 2-patient did have cardiac arrest requiring resuscitation in this patient who did have a chest x-ray with a right-sided infiltrate and question of aspiration pneumonia urine culture grew E. coli with some resistant pattern, sputum has been negative blood culture currently pending catheter tip cultures growing corynebacterium species more likely contamination with a blood culture negative no need for vancomycin. 3patient is afebrile white count is normal patient did have some clinical improvement and will continue with Zosyn to continue and monitor clinical course closely Dictation was produced using [employer] dictation software. please excuse any grammatical, word or spelling errors. Time with Patient: Less than 30
--- NOTE | 2023-08-30 09:17 | P.PN ---
Subjective Progress Note Date: 08/29/23 Principal diagnosis: Reason for follow-up is right heel diabetic foot ulcer Patient is a 57-year-old female with a past medical history significant for diabetes mellitus hypertension hyperlipidemia history of renal insufficiency requiring dialysis currently not on dialysis and the patient also have a chronic nonhealing wound to the right heel area, present to the hospital with increasing shortness of breath and swelling concerning for fluid overload.Patient did have a cardiac arrest around 4 AM 08/23/2023 with the patient went into asystole got resuscitated intubated and transferred to the ICU subsequently have another cardiac arrest with PEA rhythm not resuscitated. On today's evaluation that is 08/29/2023, Patient is afebrile patient is currently on 2 L nasal cannula oxygen and denies having any shortness of breath, the patient denies any worsening cough or sputum production, the patient denies any nausea vomiting did not have any abdominal pain and no diarrhea. The patient white count 6.0 creatinine is 2.86 sputum negative urine with E. coli Objective - Vital Signs Vital signs: Vital Signs Temp 97.0 F L 08/29/23 12:00 Pulse 73 08/29/23 14:00 Resp 16 08/29/23 14:00 BP 132/78 08/29/23 14:00 Pulse Ox 96 08/29/23 14:00 FiO2 40 08/25/23 11:38 Intake & Output 08/28/23 08/29/23 08/29/23 18:59 06:59 18:59 Intake Total 652.891 764.998 439.487 Output Total 145 105 105 Balance 507.891 659.998 334.487 Weight 78.8 kg Intake: IV 580 700 420 Invasive Line 5 90 Invasive Line 8 20 20 Lactated Ringers 1,000 ml 20 @ 50 mls/hr IV .Q20H [facility] Rx#:[id number] Piperacillin-Tazobactam 3 100 100 .375 gm In Sodium Chloride 0.9% 100 ml @ 25 mls/hr IVPB Q8H [facility] Rx#: [id number] Sodium Chloride 0.45% 1, 400 000 ml @ 50 mls/hr IV . Q20H [facility] Rx#:[id number] Sodium Chloride 0.9% 1, 350 600 000 ml @ 50 mls/hr IV . Q20H [facility] Rx#:[id number] Intake, IV Titration 72.891 64.998 19.487 Amount Dexmedetomidine/0.9% NaCl 72.891 64.998 19.487 (Pmx) 400 mcg In Empty Bag 1 bag @ 0.2 MCG/KG/HR 3.7 mls/hr IV .Q24H [facility] Rx#:[id number] Oral 0 0 Output: Urine 145 105 105 Other: Voiding Method Indwelling Catheter Indwelling Catheter Indwelling Catheter # Bowel Movements 0 ABP, PAP, CO, CI - Last Documented Arterial Blood Pressure 125/73 - Exam GENERAL DESCRIPTION: Middle-aged female intubated on the vent RESPIRATORY SYSTEM: Unlabored breathing , decreased breath sounds at bases HEART: S1 S2 regular rate and rhythm , ABDOMEN: Soft , no tenderness EXTREMITIES: Right heel wound is currently dressed - Labs CBC & Chem 7: 08/29/23 03:47 08/30/23 05:18 Labs: Abnormal Lab Results - Last 24 Hours (Table) 08/28/23 08/28/23 08/28/23 Range/Units 16:32 18:23 20:12 RBC (3.80-5.40) m/uL Hgb (11.4-16.0) gm/dL Hct (34.0-46.0) % MCHC (31.0-37.0) g/dL RDW (11.5-15.5) % Chloride 115 H (98-107) mmol/L Carbon Dioxide 20 L (22-30) mmol/L BUN 52 H (7-17) mg/dL Creatinine 2.65 H (0.52-1.04) mg/dL Glucose 261 H (74-99) mg/dL POC Glucose (mg/dL) 231 H 242 H (70-110) mg/dL Calcium 7.5 L (8.4-10.2) mg/dL ALT 74 H (4-34) U/L Alkaline Phosphatase 284 H (38-126) U/L Total Protein 5.1 L (6.3-8.2) g/dL Albumin 2.3 L (3.5-5.0) g/dL 08/29/23 08/29/23 Range/Units 03:47 03:47 RBC 2.90 L (3.80-5.40) m/uL Hgb 8.4 L (11.4-16.0) gm/dL Hct 27.4 L (34.0-46.0) % MCHC 30.7 L (31.0-37.0) g/dL RDW 18.1 H (11.5-15.5) % Chloride 117 H (98-107) mmol/L Carbon Dioxide 18 L (22-30) mmol/L BUN 54 H (7-17) mg/dL Creatinine 2.86 H (0.52-1.04) mg/dL Glucose 103 H (74-99) mg/dL POC Glucose (mg/dL) (70-110) mg/dL Calcium 7.6 L (8.4-10.2) mg/dL ALT (4-34) U/L Alkaline Phosphatase (38-126) U/L Total Protein (6.3-8.2) g/dL Albumin (3.5-5.0) g/dL Microbiology - Last 24 Hours (Table) 08/23/23 01:25 Blood Culture - Final Blood Assessment and Plan (1) Pressure ulcer of right heel, stage 3 Current Visit: No Status: Acute Code(s): L89.613 - PRESSURE ULCER OF RIGHT HEEL, STAGE 3 SNOMED Code(s): 49636991318651 (2) Type 2 diabetes mellitus with foot ulcer Current Visit: No Status: Acute Code(s): E11.621 - TYPE 2 DIABETES MELLITUS WITH FOOT ULCER; L97.509 - NON-PRESSURE CHRONIC ULCER OTH PRT UNSP FOOT W UNSP SEVERITY SNOMED Code(s): 810204387 (3) UTI (urinary tract infection) Current Visit: Yes Status: Acute Code(s): N39.0 - URINARY TRACT INFECTION, SITE NOT SPECIFIED SNOMED Code(s): 23928724 (4) Aspiration pneumonia Current Visit: Yes Status: Acute Code(s): J69.0 - PNEUMONITIS DUE TO INHALATION OF FOOD AND VOMIT SNOMED Code(s): 274444847 Plan: 1patient with chronic nonhealing wound to the right heel area which has been there for a couple of months now patient overall wound base looks clean with no slough tissue in the wound is not pulling out the wound more likely a pressure ulcer stage III with evidence of any secondary cellulitis, local wound care has been switched over to the wound VAC to continue management per wound care 2-patient did have cardiac arrest requiring resuscitation in this patient who did have a chest x-ray with a right-sided infiltrate and question of aspiration pneumonia urine culture grew E. coli with some resistant pattern, sputum has been negative blood culture currently pending catheter tip cultures growing corynebacterium species more likely contamination with a blood culture negative no need for vancomycin. 3patient is afebrile white count remains to be normal patient is currently being treated with the Zosyn to continue and monitor clinical course closely Dictation was produced using [employer] dictation software. please excuse any grammatical, word or spelling errors. Time with Patient: Less than 30
[2023-08-30] MEDS: FUROSEMIDE 10 MG/ML 4 ML VIAL IV SCH (10:01)
--- NOTE | 2023-08-30 10:14 | P.PN ---
Subjective Patient is seen in follow-up for acute kidney injury. Renal function slightly worse. No improvement in mentation. Urine output improved post IV Lasix. Vital signs are stable. General: Resting in bed. HEENT: On nasal cannula. LUNGS: No audible rhonchi or wheezes. HEART: Rate and Rhythm are regular. ABDOMEN: No distention. EXTREMITITES: 2+ edema. Objective - Vital Signs Vital signs: Vital Signs Temp 97.2 F L 08/30/23 08:00 Pulse 90 08/30/23 09:00 Resp 24 08/30/23 09:00 BP 154/78 08/30/23 09:00 Pulse Ox 92 L 08/30/23 09:00 FiO2 40 08/25/23 11:38 Intake & Output 08/29/23 08/30/23 08/30/23 18:59 06:59 18:59 Intake Total 939.487 580 260 Output Total 200 395 135 Balance 739.487 185 125 Intake: IV 680 580 260 Invasive Line 8 30 30 10 Piperacillin-Tazobactam 3 100 .375 gm In Sodium Chloride 0.9% 100 ml @ 25 mls/hr IVPB Q8H [facility] Rx#: [id number] Sodium Chloride 0.45% 1, 650 550 150 000 ml @ 50 mls/hr IV . Q20H [facility]IE Rx#:[id number] Intake, IV Titration 19.487 Amount Dexmedetomidine/0.9% NaCl 19.487 (Pmx) 400 mcg In Empty Bag 1 bag @ 0.2 MCG/KG/HR 3.7 mls/hr IV .Q24H [facility]IE Rx#:[id number] Oral 240 Output: Urine 200 395 135 Other: Voiding Method Indwelling Catheter Indwelling Catheter # Bowel Movements 0 ABP, PAP, CO, CI - Last Documented Arterial Blood Pressure 125/73 - Labs CBC & Chem 7: 08/29/23 03:47 08/30/23 05:18 Labs: Abnormal Lab Results - Last 24 Hours (Table) 08/29/23 08/29/23 08/30/23 Range/Units 03:47 20:28 05:18 Chloride 114 H (98-107) mmol/L Carbon Dioxide 18 L (22-30) mmol/L BUN 56 H (7-17) mg/dL Creatinine 2.98 H (0.52-1.04) mg/dL Glucose 146 H (74-99) mg/dL POC Glucose (mg/dL) 186 H (70-110) mg/dL Calcium 7.8 L (8.4-10.2) mg/dL Iron 31 L (50-170) UG/DL TIBC 196 L (228-460) UG/DL Transferrin 140.0 L (204.0-354.0) mg/dL Ferritin 479.0 H (10.0-291.0) ng/mL 08/30/23 Range/Units 06:39 Chloride (98-107) mmol/L Carbon Dioxide (22-30) mmol/L BUN (7-17) mg/dL Creatinine (0.52-1.04) mg/dL Glucose (74-99) mg/dL POC Glucose (mg/dL) 154 H (70-110) mg/dL Calcium (8.4-10.2) mg/dL Iron (50-170) UG/DL TIBC (228-460) UG/DL Transferrin (204.0-354.0) mg/dL Ferritin (10.0-291.0) ng/mL Assessment and Plan Plan: Assessment: 1. Acute kidney injury on chronic kidney disease secondary to ATN secondary to cardiorenal syndrome and cardiac arrest. Creatinine 1.5 admission and is up to 2.98 today. Patient was on hemodialysis in the past with last treatment being July 02, 2023. 2. Volume overload. 3. Acute on chronic diastolic CHF. 4. Diabetes mellitus. 5. Right foot wound. 6. Coronary disease with cardiac stenting. 7. Status post PEA arrest with concern for anoxic encephalopathy. 8. Septic shock with urine culture positive for E. coli and catheter tip culture positive for Corynebacterium. On antibiotics. Off vasopressors. 9. Metabolic acidosis secondary to acute kidney injury and IV fluids. On oral bicarb. 10. Anemia. Iron deficiency noted. Plan: Add IV Lasix 40 mg twice daily. Hep-Lock IV fluids. Encouraged oral intake. Avoid nephrotoxins. Continue to monitor renal function and urine output. Add IV iron. Continue to assess daily for need for renal replacement therapy. No urgency at this time.
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
[2023-08-30 11:00] LABS: Glucose,Whole Blood 159 mg/dL (70-110)
[2023-08-30] MEDS: SODIUM FERRIC GLUCONAT-SUCROSE 125 MG in SODIUM CHLORIDE 0.9% 100 ML IVPB SCH (11:29)
--- NOTE | 2023-08-30 13:15 | P.PN ---
Subjective Progress Note Date: 08/30/23 Pulmonary consult dated August 23, 2023. This is a 57-year-old female who was admitted back on August 18, for a right heel wound. Early this morning, the patient had a cardiopulmonary arrest. The patient apparently was initially found to be bradycardic, and then had asystole. She received 3 rounds of epinephrine. She arrived to the intensive care unit this morning at 630, having been intubated on the floor by anesthesia. In the ICU, the patient had an episode of pulseless electrical activity, and asystole, and received 2 rounds of epinephrine, a dose of atropine, and some sodium bicarbonate. I came into the intensive care unit this morning, early, to place a left internal jugular triple-lumen catheter, and a right femoral arterial line. Currently, the patient is on volume assist-control, rate 16, tidal volume 400, FiO2 50%, PEEP of 5. The most recent blood gases show pO2 of 75, pCO2 49, pH is 7.44. Arterial blood gases shortly after intubation showed a pO2 of 268, pCO2 of 38, and a pH of 7.25. The patient is currently on norepinephrine at 1.4 mcg/min, and saline at 50 cc an hour. Current labs include a white count 13.8, hemoglobin 9.5, hematocrit 31, and a platelet count of 257,000. PT was 12.9 with an INR of 1.2. Sodium 135, potassium 4.9, chlorides 111, CO2 19, anion gap 5, BUN 62, creatinine 2.76. The patient's AST is 468. ALT is 286. Albumin is 2.1. Urine, is suspicious for possible infection. Brain CT Today, Shows No Acute Intracranial Process. Chest x-ray shows bilateral patchy airspace disease, right greater than left. Progress note dated August 24, 2023. The patient is seen today in the intensive care unit, room 255. The patient remains on the mechanical ventilator. Current settings include volume assist- control, rate 16, tidal volume 400, FiO2 50%, PEEP of 5. The tidal volume will be dropped down to 350, and the FiO2 will be dropped down to 40%, current blood gases show pO2 132, pCO2 34, pH is 7.37. The patient continues on 0.9 at 50 cc an hour, propofol at 20 mcg/kg/min, and vital 1.2 at 10 cc an hour, with a goal of 48. The patient is discovered to have gram-negative bacilli in the urine. She continues on Zosyn. White count 9, hemoglobin 9.6, hematocrit 30.1, platelet count 242,000. Sodium 138, potassium 4.7, chloride 113, CO2 18, BUN 63, and creatinine 2.65. Anion gap is 7. The patient's AST is 199, ALT is 235. Troponin is 0.565. Albumin is 2.0. The gram-negative bacilli in the urine was discovered to be Escherichia coli. Chest x-ray shows an endotracheal tube that is too low in the trachea, and should be pulled back. In addition, there is evidence of underlying vascular congestion, and/or infiltrates. Progress note dated August 25, 2023. 57-year-old female seen again in room 255. The patient remains on mechanical ventilator. She is on volume assist-control, rate 16, tidal volume 350, FiO2 40%, PEEP of 5. Blood gases show a pO2 of 95, pCO2 of 39, pH is 7.31. The patient is getting propofol 35 mcg/kg/min, saline at 50 cc an hour, and dopamine at 2.5 mcg/kg/min. The patient continues on Zosyn for Escherichia coli. The patient did develop some bradycardia, overnight, which required her to be on do pamine. We are going to order some Dopplers of the lower extremities. In addition, we will do a daily interruption of sedation, and a spontaneous breathing trial. Count is 10.5, hemoglobin 10.3, hematocrit 32.7, platelet count 314,000. Sodium 140, potassium 4.8, chlorides 113, CO2 18, BUN 57, cr eatinine 2.49. Glucose is 142. Magnesium is 2.1, calcium is 7.0. The patient's urine specimen from August 21, revealed Escherichia coli. Dopplers of the lower extremities were negative. Chest x-ray shows some patchy bilateral infiltrates, more left-sided than right-sided. On today's evaluation of 08/26/2023, the patient is being seen for a follow-up. The patient is post cardiopulmonary arrest that occurred on 08/23/2023 and the patient return of spontaneous circulation. Subsequently, the patient was extubated on 08/25/2023. The patient is currently on 4 L of oxygen by nasal cannula. The patient remains encephalopathic. At times, restless in bed and somewhat agitated. Based on that, made recommendations to start the patient on Precedex at the low-dose to control her restlessness and agitation. She is also noted to have a right ankle fracture and a chronic nonhealing heel ulcer, stage [place]. She was also found to have an E. coli in her urine possibly underlying urine tract infection on 08/22/2023. On today's evaluation, the patient is on 40s of oxygen by nasal cannula. Chest x-ray showing cardiomegaly and the patient has a left subclavian triple-lumen catheter in place. Hemodynamically stable on no pressors. WBC count of 8.6 with a hemoglobin 8.5 and a platelet count of 217. BUN is 51 with a creatinine of 2.28 and a sodium level is at 141 and a bicarb level is at 17. The patient is moving all 4 extremities without any limitation. The patient is currently afebrile. Nephrology is on the case regarding MARYLOU which is probably secondary to ATN and has creatinine is being monitored. Fluid balance over the past 24 hours has been 250 cc positive and the patient shows no signs of any significant fluid overload. The patient is currently on IV Zosyn regarding the possibility of an aspiration/E. coli urinary tract infection and is stage III right heel wound. She remains on bronchodilators. She is on no pressors for now. No other significant events overnight. As mentioned, she was extubated yesterday and the chest x-ray shows distal stable left-sided pleural effusion. The echocardiogram that was done on 08/20/2023 showed a preserved left ventricular ejection fraction, no significant valvular abnormalities. The patient also had Doppler of the lower extremity on 08/25/2023 that revealed no evidence of any DVT. There was a prominent lymph node in the right groin measuring 2.6 cm in size. The patient did have a catheter in her right IJ at the time of admission that was removed and the cultures came back positive for corynebacterium. On today's evaluation of 08/27/2023, the patient is being seen for a follow-up. Patient is postcardiac arrest and the patient is having some signs of anoxic encephalopathy. She was restless and confused and somewhat agitated. Based on that, the patient was started on Precedex yesterday and Precedex is running at 0.4 mcg/kg/h. No significant agitation at this point in time. She seems to be calm and comfortable. She follows occasional simple commands. No agitation. No focal neurological deficits. She is currently on 2 L of oxygen nasal cannula and she is also on lactated Ringer at rate of 50 cc an hour. Urine output is in order of 30 cc an hour. Overall fluid balance has been +700 cc over the past 24 hours. The blood work shows a WC count of 8.2 with a hemoglobin 8.6 and a platelet count of 200, BUN is at 48 with a creatinine of 2.22 and a sodium level of 141. The serum bicarb level is at 18. A repeat limited echocardiogram was done yesterday and the patient showed improvement and in the LV function and the patient ejection fraction is in order of 55 to 60% without any significant segmental wall motion abnormalities. The patient is afebrile. The patient is hemodynamically stable at this point in time. Nephrology on the case regarding her chronic renal failure. On today's evaluation of 08/28/2023, the patient continues to require Precedex for increased agitation and restlessness. While off sedation, thrashes around. Currently she is calm and comfortable being on Precedex at 0.7 mcg/kg/h. She is on 3 L of oxygen by nasal cannula. No signs of any respiratory distress. No fo tete neurological deficits. She continues to complain of chest wall soreness and pain related to CPR and based on that the patient was given IV Tylenol and she is also [place] for pain control. WBC count is 7.1 with a hemoglobin of 8.7 and a platelet count of 214. BUN is at 50 with a creatinine of 2.45 and a sodium level of 140 with a potassium level of 5.1. She is afebrile. She is hemodynamically stable at this point in time. 08/30/2023, the patient is being seen for a follow-up. Remains encephalopathic, speech at times is garbled. Follows commands. She is not consistently having a conversation. A repeat CAT scan of the brain was done on 08/28/2023 and the findings showed no acute abnormalities. EEG was also done on 08/29/2023 and it showed abnormal slowing and mild to moderate degree of encephalopathy with generalized cerebral dysfunction. The patient is clinically stable and hemod ynamically stable. No respiratory distress. Adequate swallow without any risk of aspiration. Chest x-ray from today showing increased incisional markings bilaterally, could be a component of fluid overload. Meanwhile, the patient is on no pressors. She is afebrile. She is on oxygen at 3 L. Blood work from today shows a sodium level of 142, BUN of 56 with a creatinine of 2.98 and a creatinine remained stable with a potassium level of 5 and a serum bicarb of 18. Serum cortisol 15. TSH is at 2.5. No hypothermia. The patient remains on DuoNeb updrafts, she remains on aspirin 81 mg p.o. daily combination with Plavix. She is on IV iron. She is covered empirically with IV Zosyn. She is on Seroquel 150 mg p.o. twice a day. Agitation is adequately controlled. Objective - Vital Signs Vital signs: Vital Signs Temp 97.2 F L 08/30/23 08:00 Pulse 90 08/30/23 09:00 Resp 24 08/30/23 09:00 BP 154/78 08/30/23 09:00 Pulse Ox 92 L 08/30/23 09:00 FiO2 40 08/25/23 11:38 Intake & Output 08/29/23 08/30/23 08/30/23 18:59 06:59 18:59 Intake Total 939.487 580 260 Output Total 200 395 135 Balance 739.487 185 125 Intake: IV 680 580 260 Invasive Line 8 30 30 10 Piperacillin-Tazobactam 3 100 .375 gm In Sodium Chloride 0.9% 100 ml @ 25 mls/hr IVPB Q8H RYLIE Rx#: [id number] Sodium Chloride 0.45% 1, 650 550 150 000 ml @ 50 mls/hr IV . Q20H RYLIE Rx#:[id number] Intake, IV Titration 19.487 Amount Dexmedetomidine/0.9% NaCl 19.487 (Pmx) 400 mcg In Empty Bag 1 bag @ 0.2 MCG/KG/HR 3.7 mls/hr IV .Q24H RYLIE Rx#:[id number] Oral 240 Output: Urine 200 395 135 Other: Voiding Method Indwelling Catheter Indwelling Catheter # Bowel Movements 0 ABP, PAP, CO, CI - Last Documented Arterial Blood Pressure 125/73 - Exam No acute distress, calm and comfortable on 3 L, remains encephalopathic Head exam was generally normal. There was no scleral icterus or corneal arcus. Mucous membranes were moist. HEENT examination is grossly unremarkable. Neck supple. Full range of motion. No adenopathy thyromegaly or neck vein distention. Cardiovascular examination reveals regular rhythm rate. S1-S2 normal. No S3 or S4. No discernible murmur noted. Heart sounds are distant. Lungs reveal scattered bilateral rhonchi. No wheezes or crackles. Breath sounds equal bilaterally. Abdomen soft without bowel sounds. Extremities are intact. No cyanosis clubbing or edema. The patient has a soft splint in her right lower extremity. Pulses are diminished at the present in all 4 extremities. Skin is without rash or lesion. Stage III nonhealing heel ulcer in the right lower extremity. Neurologic examination No focal neurological deficits. Pupils are equal reactive to light. There is baseline encephalopathy and occasional agitation. - Labs CBC & Chem 7: 08/29/23 03:47 08/30/23 05:18 Labs: Abnormal Lab Results - Last 24 Hours (Table) 08/29/23 08/29/23 08/30/23 Range/Units 03:47 20:28 05:18 Chloride 114 H (98-107) mmol/L Carbon Dioxide 18 L (22-30) mmol/L BUN 56 H (7-17) mg/dL Creatinine 2.98 H (0.52-1.04) mg/dL Glucose 146 H (74-99) mg/dL POC Glucose (mg/dL) 186 H (70-110) mg/dL Calcium 7.8 L (8.4-10.2) mg/dL Iron 31 L (50-170) UG/DL TIBC 196 L (228-460) UG/DL Transferrin 140.0 L (204.0-354.0) mg/dL Ferritin 479.0 H (10.0-291.0) ng/mL 08/30/23 Range/Units 06:39 Chloride (98-107) mmol/L Carbon Dioxide (22-30) mmol/L BUN (7-17) mg/dL Creatinine (0.52-1.04) mg/dL Glucose (74-99) mg/dL POC Glucose (mg/dL) 154 H (70-110) mg/dL Calcium (8.4-10.2) mg/dL Iron (50-170) UG/DL TIBC (228-460) UG/DL Transferrin (204.0-354.0) mg/dL Ferritin (10.0-291.0) ng/mL Assessment and Plan Plan: Cardiopulmonary arrest, x 2, with cardiopulmonary resuscitation, and return of spontaneous circulation on 08/23/23, echocardiogram shows a preserved LV function. No significant valvular abnormalities at this point in time. Cardiac rhythm is sinus. Acute hypoxic respiratory failure, postcardiac arrest, intubated and subsequently extubated on 08/25/2023 currently on 3 L of O2 nasal cannula S/P intubation, and mechanical ventilation, secondary to cardiopulmonary arrest, August 23, 2023. She was extubated on 08/25/23 Encephalopathy with possibility of an underlying hypoxic encephalopathy postcardiac arrest, CAT scan of the brain that was done showed no evidence of any acute abnormalities. The patient is currently Precedex as the patient was showing signs of restlessness and agitation. She seems to be calm and comfortable and there is no focal neurological deficit on today's evaluation. She is moving all 4 extremities without any limitation. She is still requiring Precedex for increased agitation and restlessness/delirium/hypoxic encephalopathy. CAT scan of the brain from 08/28/2023 was negative. EEG showed mild to moderate encephalopathy. History of congestive heart failure. Echocardiogram from this current admission shows a preserved LV function.. Coronary artery disease cardiomyopathy and the patient is post non-ST segment elevation myocardial infarction. Cardiac catheterization was done on 06/24/2023 and the patient had successful stenting of the proximal RCA with reduction of the stenosis from 70% to 0%. Troponin peaked at 1. Stage III chronic kidney disease, creatinine is stable for now, the patient required hemodialysis during earlier hospitalization and the last hemodialysis was on 07/02/2023. The patient has not received hemodialysis since then. Dialysis catheter was removed and the catheter was positive for corynebacterium. Right heel pressure ulcer, stage III Subacute fracture of the medial and lateral malleolus, she has a soft cast in the right lower extremity History of hypertension. History of hyperlipidemia. History of type 2 diabetes mellitus. History of severe pulmonary hypertension. History of COPD. History of peripheral neuropathy. Chest wall pain related to CPR Plan off Precedex, monitor mental status Seroquel 150 mg p.o. twice a day The patient is currently hemodynamically stable on no pressors. Cardiac rhythm is sinus. Will obtain repeated limited echocardiogram to reevaluate LV function. The echocardiogram shows a preserved LV function. Utilize [place] for pain control Monitor renal function , currently stable creatinine Continue half normal saline at rate of 50 cc an hour Able to swallow without any major difficulties continue aspirin and Plavix Continue IV Zosyn No pressors for now Continue Lipitor 40 mg p.o. daily Continue Norvasc 5 mg p.o. daily Continue Imdur 30 mg p.o. daily Heparin subcu for DVT prophylaxis Neurology consultation is appreciated Will continue to follow The patient be kept in ICU for now.
[2023-08-30] MEDS: DARBEPOETIN ALFA 40 MCG/0.4 ML SYRINGE SQ SCH (16:11)
[2023-08-30 16:41] LABS: Glucose,Whole Blood 374 mg/dL (70-110)
[2023-08-30 16:42] LABS: Glucose,Whole Blood 139 mg/dL (70-110)
--- NOTE | 2023-08-30 19:36 | P.PN ---
Subjective 57-year-old female came in with complaints of shortness of breath and orthopnea found to be in congestive heart failure exacerbation patient has congestive heart failure with reduced ejection fraction in the past patient has increasing pedal edema. Patient also has an ulcer in the right foot stage III-IV which appeared to be infected we will consult wound care and infectious disease. Patient was on hemodialysis during last hospitalization her creatinine presently is 1.5 which is significantly improved patient potassium is 5.5, patient is on Entresto and Aldactone Aldactone will be held Entresto will be continued since she is receiving IV Lasix and expecting her potassium to improve if it does not improve or get worse then Entresto need to be discontinued as well. Patient has hypervolemic hyponatremia and hyperglycemia. 08/21/2023 Was evaluated today on the medical floor. Patient was continued on IV Lasix overnight however she was no longer reporting any shortness of breath and her lower extremity edema has improved. She was taken off of the Lasix at this time due to increased creatinine up to 2.31 additionally potassium remains elevated at 5.7. Echocardiogram comes back showing an improved ejection fraction of 60 to 65% because of this and also the hyperkalemia patient will not be continued on entresto. Patient was evaluated by infectious disease who felt like that heel ulcer on the right side was more likely a pressure injury stage III and is recommending local wound care to continue with Aquacel. Patient is reporting significant pain to the right foot and feels like it is fractured. Upon review of the patient's chart she did have a x-ray completed of this 12 days ago ordered by her librarian school Dr. Mayen. Ankle x-ray did review a mildly displaced acute distal fibular fracture. Repeat x-ray of the foot and ankle completed today does reveal a subacute fractures of the medial and lateral malleolus. The lateral malleolus fracture was seen on the patient's prior exam the medial malleolus fracture may be new in the interval and this would be considered an unstable ankle fracture. There is interval 6 mm displacement of the lateral malleolus. There is a deep soft tissue ulcer at the plantar heel with no clear radiographic findings of a contagious osteomyelitis at this time. Orthooedics was consulted for this. 08/22/2023 Patient evaluated in follow-up today resting in bed. She was taken off of the Lasix remains off at this time. Bladder scan was requested and not done yesterday to rule out urinary retention, creatinine today is increased up to 2.56. Bladder scan was done require urinary straight catheterization of 550 mL taken out. Urinalysis was sent which is significantly abnormal. Patient is also noted to have multiple genital lesions which appear wartlike she admits to not having any routine gynecological screenings for many years. She is not having any vaginal bleeding or discharge. Renal ultrasound has been ordered to rule out any obstructive uropathy. 08/23/2023 Patient is evaluated today in follow-up patient had a cardiac event with cardiac arrest estimator paperboard boxes around 445 AM with initial rhythm slowing asystole patient was started on CPR with ACS protocol patient did receive ROSC after 6 to 8 minutes and was transferred to the intensive care unit. Patient upon arrival to the intensive care unit had another episode of cardiac arrest patient had bradycardia while on pressors in the ICU patient was intubated following the first cardiac arrest and is currently on the mechanical ventilator 50% FiO2. Chest x-ray showing similar interstitial and patchy component airspace disease right greater than left. There is a possible trace left pleural effusion. A brain CT which shows no acute intracranial process. Blood work today shows a white blood cell count of 13.8, hemoglobin 9.5, sodium level of 135, BUN of 62, creatinine of 2.76. AST ALT and alk phosphatase are significantly elevated consistent with a shock liver. TSH 3.310. Urinalysis is abnormal. Her urine culture is showing gram-negative bacilli patient is covered for the urinary tract infection as well as aspiration with IV Zosyn being managed by infectious disease. Patient is currently sedated with propofol and did require vasopressor support with Levophed which has been weaned at this time. Will discontinue the gabapentin patient is continued on aspirin Plavix and statin has been placed on hold. There is concern for possible arrhythmia precipitating the asystole additionally we need to rule out embolism and a D-dimer has been ordered. 08/24/2023 Patient is seen in follow-up today continues in the ICU on mechanical ventilation. FiO2 is 50% although titrating and was just placed at 40% with a PEEP of 5. Chest x-ray today shows that the ET tube is 7 mm from the sonam suggesting a pulled back 2 cm and reassess and also suspected underlying vascular congestion. Neuro is following and per nursing staff patient is following some simple commands and undergoing sedation holidays. Patient noted to have reduced EF of 30 to 35% and cardiology had been following. Will reconsult and appreciate input and recommendations. patient did have dialysis catheter removed and sent for cultures which are pending. Infectious disease following and patient is maintained on antibiotic. D-dimer is elevated above 16 and will attempt to obtain a VQ scan.57-year-old female came in with complaints of shortness of breath and orthopnea found to be in congestive heart failure exacerbation patient has congestive heart failure with reduced ejection fraction in the past patient has increasing pedal edema. Patient also has an ulcer in the right foot stage III-IV which appeared to be infected we will consult wound care and infectious disease. Patient was on hemodialysis during last hospi talization her creatinine presently is 1.5 which is significantly improved patient potassium is 5.5, patient is on Entresto and Aldactone Aldactone will be held Entresto will be continued since she is receiving IV Lasix and expecting her potassium to improve if it does not improve or get worse then Entresto need to be discontinued as well. Patient has hypervolemic hyponatremia and hyperglycemia. 08/21/2023 Was evaluated today on the medical floor. Patient was continued on IV Lasix overnight however she was no longer reporting any shortness of breath and her lower extremity edema has improved. She was taken off of the Lasix at this time due to increased creatinine up to 2.31 additionally potassium remains elevated at 5.7. Echocardiogram comes back showing an improved ejection fraction of 60 to 65% because of this and also the hyperkalemia patient will not be continued on entresto. Patient was evaluated by infectious disease who felt like that heel ulcer on the right side was more likely a pressure injury stage III and is recommending local wound care to continue with Aquacel. Patient is reporting significant pain to the right foot and feels like it is fractured. Upon review of the patient's chart she did have a x-ray completed of this 12 days ago ordered by her librarian school Dr. Mayen. Ankle x-ray did review a mildly displaced acute distal fibular fracture. Repeat x-ray of the foot and ankle completed today does reveal a subacute fractures of the medial and lateral malleolus. The lateral malleolus fracture was seen on the patient's prior exam the medial malleolus fracture may be new in the interval and this would be considered an unstable ankle fracture. There is interval 6 mm displacement of the lateral malleolus. There is a deep soft tissue ulcer at the plantar heel with no clear radiographic findings of a contagious osteomyelitis at this time. Orthooedics was consulted for this. 08/22/2023 Patient evaluated in follow-up today resting in bed. She was taken off of the Lasix remains off at this time. Bladder scan was requested and not done yesterday to rule out urinary retention, creatinine today is increased up to 2.56. Bladder scan was done require urinary straight catheterization of 550 mL taken out. Urinalysis was sent which is significantly abnormal. Patient is also noted to have multiple genital lesions which appear wartlike she admits to not having any routine gynecological screenings for many years. She is not having any vaginal bleeding or discharge. Renal ultrasound has been ordered to rule out any obstructive uropathy. 08/23/2023 Patient is evaluated today in follow-up patient had a cardiac event with cardiac arrest estimator paperboard boxes around 445 AM with initial rhythm slowing asystole patient was started on CPR with ACS protocol patient did receive ROSC after 6 to 8 minutes and was transferred to the intensive care unit. Patient upon arrival to the intensive care unit had another episode of cardiac arrest patient had bra dycardia while on pressors in the ICU patient was intubated following the first cardiac arrest and is currently on the mechanical ventilator 50% FiO2. Chest x- ray showing similar interstitial and patchy component airspace disease right greater than left. There is a possible trace left pleural effusion. A brain CT which shows no acute intracranial process. Blood work today shows a white blood cell count of 13.8, hemoglobin 9.5, sodium level of 135, BUN of 62, creatinine of 2.76. AST ALT and alk phosphatase are significantly elevated consistent with a shock liver. TSH 3.310. Urinalysis is abnormal. Her urine culture is showing gram-negative bacilli patient is covered for the urinary tract infection as well as aspiration with IV Zosyn being managed by infectious disease. Patient is currently sedated with propofol and did require vasopressor support with Levophed which has been weaned at this time. Will discontinue the gabapentin patient is continued on aspirin Plavix and statin has been placed on hold. There is concern for possible arrhythmia precipitating the asystole additionally we need to rule out embolism and a D-dimer has been ordered. 08/24/2023 Patient is seen in follow-up today continues in the ICU on mechanical ventilation. FiO2 is 50% although titrating and was just placed at 40% with a PEEP of 5. Chest x-ray today shows that the ET tube is 7 mm from the sonam suggesting a pulled back 2 cm and reassess and also suspected underlying vascular congestion. Neuro is following and per nursing staff patient is following some simple commands and undergoing sedation holidays. Patient noted to have reduced EF of 30 to 35% and cardiology had been following. Will reconsult and appreciate input and recommendations. patient did have dialysis catheter removed and sent for cultures which are pending. Infectious disease following and patient is maintained on antibiotic. D-dimer is elevated above 16 and will attempt to obtain a VQ scan. 08/25/23 : Patient seen and evaluated at bedside, patient extubated around noon, transition to 5 L of oxygen to nasal cannula. Family at bedside, blood work reviewed hemoglobin 10.3, serum chemistry reviewed sodium 140 potassium 4.8 BUN 57 creatinine 2.49 calcium of 7. 08/26/23 : Patient seen and evaluated at bedside, patient remains in medical ICU, does complain of chest pain from CPR. Patient has been weaned off dopamine, cardiology following, blood work reviewed, hemoglobin 8.5 platelet count of 217, serum chemistry shows sodium 141 BUN 51 creatinine 2.28. Followed up by nephrology as well MARYLOU secondary to ATN continue to monitor intake and output 08/27/23: Patient seen and evaluated bedside, on evaluation patient is disoriented, patient is drowsy however likely having acute delirium. Seen by cardiology echocardiogram shows preserved ejection fraction continue with current medical management, patient on Precedex for acute delirium, continue to remain on oxygen supplementation with nasal cannula blood work reviewed CBC showed WBC 8.2 hemoglobin 8.6 serum chemistry showed creatinine of 2.22. Cande ent remains delirious, daughter at bedside all questions answered 08/28/2023 Patient was agitated earlier requiring Seroquel and Placed on Precedex because she was has risk to self and others Currently when I saw the patient she was sleepy However she is not tachypneic show does not look in pain. Vitals are stable She is saturating 91% on 2 L oxygen via nasal cannula She remains on Zosyn for pneumonia and UTI She is on normal saline at 50 mL/h 08/29/2023 Patient remains sleepy, she still has some encephalopathy But she is on Precedex which will be tapered off by pulmonary team today to assess her mentation as well. Patient has been followed by neurology for suspected anoxic brain injury after her cardiac arrest and return of circulation on 08/22. There is no evidence of seizure-like activity She has catheter tip infection with culture growing Corynebacterium species and she is currently covered with Zosyn which also help for her right heel pressure ulcer and aspiration pneumonia and UTI. Cardiology evaluated the patient and there is no clear evidence for her cardiac arrest although she has history of coronary artery disease and previous stents. Currently with no chest pain. She remains on aspirin and Plavix, gentle hydration, IV steroids 08/30/2023 Today her sedation remains off however patient mentation not completely resolved, it is somewhat better as she was more sleepy yesterday She is eating okay, swallowing is fine She was started on IV Lasix twice daily per sign poster. She has good urine output and normal send discontinued She is hemodynamically stable and oxygenation is acceptable Remains on aspirin and Plavix and Seroquel Objective - Vital Signs Vital signs: Vital Signs Temp 97.2 F L 08/30/23 08:00 Pulse 86 08/30/23 13:00 Resp 15 08/30/23 13:00 BP 144/77 08/30/23 13:00 Pulse Ox 91 L 08/30/23 13:00 FiO2 40 08/30/23 12:00 Intake & Output 08/29/23 08/30/23 08/30/23 18:59 06:59 18:59 Intake Total 939.487 580 670 Output Total 200 395 615 Balance 739.487 185 55 Weight 78.8 kg Intake: IV 680 580 270 Invasive Line 8 30 30 20 Piperacillin-Tazobactam 3 100 .375 gm In Sodium Chloride 0.9% 100 ml @ 25 mls/hr IVPB Q8H [facility] Rx#: [id number] Sodium Chloride 0.45% 1, 650 550 150 000 ml @ 50 mls/hr IV . Q20H [facility] Rx#:[id number] Intake, IV Titration 19.487 200 Amount Dexmedetomidine/0.9% NaCl 19.487 (Pmx) 400 mcg In Empty Bag 1 bag @ 0.2 MCG/KG/HR 3.7 mls/hr IV .Q24H [facility] Rx#:[id number] Piperacillin-Tazobactam 3 100 .375 gm In Sodium Chloride 0.9% 100 ml @ 25 mls/hr IVPB Q12HR [facility] Rx #:[id number] Sodium Ferric Gluconat- 100 Sucrose 125 mg In Sodium Chloride 0.9% 100 ml @ 100 mls/hr IVPB DAILY [facility] Rx#:[id number] Oral 240 200 Output: Urine 200 395 615 Other: Voiding Method Indwelling Catheter Indwelling Catheter Indwelling Catheter # Bowel Movements 0 ABP, PAP, CO, CI - Last Documented Arterial Blood Pressure 125/73 - Exam -GENERAL: The patient is sleepy HEENT: Pupils are round and equally reacting to light. EOMI. No scleral icterus. No conjunctival pallor. Normocephalic, atraumatic. No pharyngeal erythema. No thyromegaly. CARDIOVASCULAR: S1 and S2 present. No murmurs, rubs, or gallops. PULMONARY: Chest is clear to auscultation, no wheezing , no crackles. ABDOMEN: Soft, nontender, nondistended, normoactive bowel sounds. No palpable organomegaly. MUSCULOSKELETAL: No joint swelling or deformity. EXTREMITIES: No cyanosis, clubbing, or pedal edema. NEUROLOGICAL: Gross neurological examination did not reveal any focal deficits. SKIN: No rashes. no petechiae. - Labs CBC & Chem 7: 08/29/23 03:47 08/30/23 05:18 Labs: Abnormal Lab Results - Last 24 Hours (Table) 08/29/23 08/29/23 08/30/23 Range/Units 03:47 20:28 05:18 Chloride 114 H (98-107) mmol/L Carbon Dioxide 18 L (22-30) mmol/L BUN 56 H (7-17) mg/dL Creatinine 2.98 H (0.52-1.04) mg/dL Glucose 146 H (74-99) mg/dL POC Glucose (mg/dL) 186 H (70-110) mg/dL Calcium 7.8 L (8.4-10.2) mg/dL Iron 31 L (50-170) UG/DL TIBC 196 L (228-460) UG/DL Transferrin 140.0 L (204.0-354.0) mg/dL Ferritin 479.0 H (10.0-291.0) ng/mL 08/30/23 08/30/23 Range/Units 06:39 10:59 Chloride (98-107) mmol/L Carbon Dioxide (22-30) mmol/L BUN (7-17) mg/dL Creatinine (0.52-1.04) mg/dL Glucose (74-99) mg/dL POC Glucose (mg/dL) 154 H 159 H (70-110) mg/dL Calcium (8.4-10.2) mg/dL Iron (50-170) UG/DL TIBC (228-460) UG/DL Transferrin (204.0-354.0) mg/dL Ferritin (10.0-291.0) ng/mL Assessment and Plan Assessment: * Asystole/cardiopulmonary arrest x 2 with CPR/ROSC * Respiratory failure requiring intubation s/p extubation 08/25/2023 * Acute metabolic encephalopathy * Congestive heart failure with systolic dysfunction acute on chronic exacerbation * Ischemic cardiomyopathy with improved EF * Acute kidney injury secondary to ATN on chronic kidney disease stage III * Urinary tract infection with E. coli * Subacute fracture of the medial and lateral malleolus, orthopedics following * Right heel stage III pressure injury continue local wound care with aquacel ID following. * Genital lesions, will need branch or department chief librarian follow up outpatient for routine screenings * Hypertension * Hyperlipidemia * Type 2 diabetes mellitus uncontrolled hgb a1c 12.1 * Severe pulmonary hypertension * COPD without any acute exacerbation * Peripheral neuropathy Plan: Continue with Zosyn Start IV Lasix and stop normal saline Precedex is off Monitor mentation Neurology, nephrology and pulmonary team on the case Cardiology team on the case Continue with aspirin and Plavix Labs and medication were reviewed.. DVT prophylaxis: Subcutaneous heparin GI Prophylaxis: Pepcid Prognosis is guarded
[2023-08-30 21:26] LABS: Glucose,Whole Blood 205 mg/dL (70-110)
[2023-08-30] MEDS: DEXMEDETOMIDINE/0.9% NACL(PMX) 400 MCG in EMPTY BAG 1 BAG IV SCH (23:05)
[2023-08-31 07:01] LABS: Glucose,Whole Blood 119 mg/dL (70-110)
--- NOTE | 2023-08-31 07:35 | P.PN ---
Subjective Progress Note Date: 08/30/23 Principal diagnosis: Reason for follow-up is right heel diabetic foot ulcer Patient is a 57-year-old female with a past medical history significant for diabetes mellitus hypertension hyperlipidemia history of renal insufficiency requiring dialysis currently not on dialysis and the patient also have a chronic nonhealing wound to the right heel area, present to the hospital with increasing shortness of breath and swelling concerning for fluid overload.Patient did have a cardiac arrest around 4 AM 08/23/2023 with the patient went into asystole got resuscitated intubated and transferred to the ICU subsequently have another cardiac arrest with PEA rhythm not resuscitated. On today's evaluation that is 08/30/2023, patient has been afebrile, patient is breathing comfortably and is currently on 4 L of oxygen, patient denies having any worsening cough no chest pain shortness of breath, patient denies nausea vomiting or diarrhea and no abdominal pain. No CBC was done due to the patient currently is 2.98 Objective - Vital Signs Vital signs: Vital Signs Temp 97.2 F L 08/30/23 08:00 Pulse 56 L 08/30/23 12:00 Resp 17 08/30/23 12:00 BP 157/105 08/30/23 12:00 Pulse Ox 96 08/30/23 12:00 FiO2 40 08/30/23 12:00 Intake & Output 08/29/23 08/30/23 08/30/23 18:59 06:59 18:59 Intake Total 939.487 580 670 Output Total 200 395 440 Balance 739.487 185 230 Intake: IV 680 580 270 Invasive Line 8 30 30 20 Piperacillin-Tazobactam 3 100 .375 gm In Sodium Chloride 0.9% 100 ml @ 25 mls/hr IVPB Q8H [facility] Rx#: [id number] Sodium Chloride 0.45% 1, 650 550 150 000 ml @ 50 mls/hr IV . Q20H [facility] Rx#:[id number] Intake, IV Titration 19.487 200 Amount Dexmedetomidine/0.9% NaCl 19.487 (Pmx) 400 mcg In Empty Bag 1 bag @ 0.2 MCG/KG/HR 3.7 mls/hr IV .Q24H [facility] Rx#:[id number] Piperacillin-Tazobactam 3 100 .375 gm In Sodium Chloride 0.9% 100 ml @ 25 mls/hr IVPB Q12HR [facility] Rx #:[id number] Sodium Ferric Gluconat- 100 Sucrose 125 mg In Sodium Chloride 0.9% 100 ml @ 100 mls/hr IVPB DAILY [facility] Rx#:[id number] Oral 240 200 Output: Urine 200 395 440 Other: Voiding Method Indwelling Catheter Indwelling Catheter Indwelling Catheter # Bowel Movements 0 ABP, PAP, CO, CI - Last Documented Arterial Blood Pressure 125/73 - Exam GENERAL DESCRIPTION: Middle-aged female intubated on the vent RESPIRATORY SYSTEM: Unlabored breathing , decreased breath sounds at bases HEART: S1 S2 regular rate and rhythm , ABDOMEN: Soft , no tenderness EXTREMITIES: Right heel wound is currently dressed - Labs CBC & Chem 7: 08/29/23 03:47 08/30/23 05:18 Labs: Abnormal Lab Results - Last 24 Hours (Table) 08/29/23 08/29/23 08/30/23 Range/Units 03:47 20:28 05:18 Chloride 114 H (98-107) mmol/L Carbon Dioxide 18 L (22-30) mmol/L BUN 56 H (7-17) mg/dL Creatinine 2.98 H (0.52-1.04) mg/dL Glucose 146 H (74-99) mg/dL POC Glucose (mg/dL) 186 H (70-110) mg/dL Calcium 7.8 L (8.4-10.2) mg/dL Iron 31 L (50-170) UG/DL TIBC 196 L (228-460) UG/DL Transferrin 140.0 L (204.0-354.0) mg/dL Ferritin 479.0 H (10.0-291.0) ng/mL 08/30/23 08/30/23 Range/Units 06:39 10:59 Chloride (98-107) mmol/L Carbon Dioxide (22-30) mmol/L BUN (7-17) mg/dL Creatinine (0.52-1.04) mg/dL Glucose (74-99) mg/dL POC Glucose (mg/dL) 154 H 159 H (70-110) mg/dL Calcium (8.4-10.2) mg/dL Iron (50-170) UG/DL TIBC (228-460) UG/DL Transferrin (204.0-354.0) mg/dL Ferritin (10.0-291.0) ng/mL Assessment and Plan (1) Pressure ulcer of right heel, stage 3 Current Visit: No Status: Acute Code(s): L89.613 - PRESSURE ULCER OF RIGHT HEEL, STAGE 3 SNOMED Code(s): 77192457868019 (2) Type 2 diabetes mellitus with foot ulcer Current Visit: No Status: Acute Code(s): E11.621 - TYPE 2 DIABETES MELLITUS WITH FOOT ULCER; L97.509 - NON-PRESSURE CHRONIC ULCER OTH PRT UNSP FOOT W UNSP SEVERITY SNOMED Code(s): 132005776 (3) UTI (urinary tract infection) Current Visit: Yes Status: Acute Code(s): N39.0 - URINARY TRACT INFECTION, SITE NOT SPECIFIED SNOMED Code(s): 33143118 (4) Aspiration pneumonia Current Visit: Yes Status: Acute Code(s): J69.0 - PNEUMONITIS DUE TO INHALATION OF FOOD AND VOMIT SNOMED Code(s): 815744920 Plan: 1patient with chronic nonhealing wound to the right heel area which has been there for a couple of months now patient overall wound base looks clean with no slough tissue in the wound is not pulling out the wound more likely a pressure ulcer stage III with evidence of any secondary cellulitis, local wound care has been switched over to the wound VAC to continue management per wound care 2-patient did have cardiac arrest requiring resuscitation in this patient who did have a chest x-ray with a right-sided infiltrate and question of aspiration pneumonia urine culture grew E. coli with some resistant pattern, sputum has been negative blood culture currently pending catheter tip cultures growing corynebacterium species more likely contamination with a blood culture negative no need for vancomycin. 3patient is afebrile white count remains to be normal patient is currently covered with Zosyn and continue with supportive care Dictation was produced using [employer] dictation software. please excuse any grammatical, word or spelling errors. Time with Patient: Less than 30
[2023-08-31 09:21] LABS: Anisocytosis Slight; Basophils # (A) 0.1 k/uL (0-0.2); Basophils % (A) 1 %; Eosinophils # (A) 0.4 k/uL (0-0.7); Eosinophils % (A) 6 %; HCT 29.2 % (34.0-46.0); HGB 9.1 gm/dL (11.4-16.0); Hypochromasia Moderate; Lymphocytes # (A) 0.8 k/uL (1.0-4.8); Lymphocytes % (A) 11 %; MCH 28.5 pg (25.0-35.0); MCHC 31.1 g/dL (31.0-37.0); MCV 91.7 fL (80.0-100.0); Mean Platelet Volume 9.1; Monocytes # (A) 0.4 k/uL (0-1.0); Monocytes % (A) 6 %; Neutrophils # (A) 5.3 k/uL (1.3-7.7); Neutrophils % (A) 72 %; Platelet Count 203 k/uL (150-450); RBC 3.18 m/uL (3.80-5.40); RDW 18.1 % (11.5-15.5); WBC 7.3 k/uL (3.8-10.6)
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
[2023-08-31 09:39] LABS: African American GFR (CKD) 22 (>60 ml/min/1.73 sqM); Anion Gap 10 mmol/L; Blood Urea Nitrogen 56 mg/dL (7-17); Calcium 8.4 mg/dL (8.4-10.2); Carbon Dioxide 18 mmol/L (22-30); Chloride 116 mmol/L (98-107); Glucose 108 mg/dL (74-99); Non-African American GFR(CKD) 19 (>60 ml/min/1.73 sqM); Potassium 5.1 mmol/L (3.5-5.1); Sodium 144 mmol/L (137-145)
--- NOTE | 2023-08-31 09:45 | P.PN ---
Subjective Patient is seen in follow-up for acute kidney injury. Renal function better. On IV Lasix. Urine output significantly improved. No improvement in mentation. Vital signs are stable. General: Resting in bed. HEENT: On nasal cannula. LUNGS: No audible rhonchi or wheezes. HEART: Rate and Rhythm are regular. ABDOMEN: No distention. EXTREMITITES: 2+ edema. Objective - Vital Signs Vital signs: Vital Signs Temp 97.4 F L 08/31/23 05:00 Pulse 57 L 08/31/23 07:00 Resp 12 08/31/23 07:00 BP 120/71 08/31/23 07:00 Pulse Ox 95 08/31/23 08:45 FiO2 40 08/25/23 11:38 Intake & Output 08/30/23 08/31/23 08/31/23 18:59 06:59 18:59 Intake Total 805 293.444 22.129 Output Total 1150 1880 170 Balance -345 -1586.556 -147.871 Weight 78.8 kg Intake: IV 280 100 Invasive Line 8 30 Piperacillin-Tazobactam 3 100 .375 gm In Sodium Chloride 0.9% 100 ml @ 25 mls/hr IVPB Q12HR [facility] Rx #:[id number] Piperacillin-Tazobactam 3 100 .375 gm In Sodium Chloride 0.9% 100 ml @ 25 mls/hr IVPB Q8H [facility] Rx#: [id number] Sodium Chloride 0.45% 1, 150 000 ml @ 50 mls/hr IV . Q20H [facility] Rx#:[id number] Intake, IV Titration 200 93.444 22.129 Amount Dexmedetomidine/0.9% NaCl 93.444 22.129 (Pmx) 400 mcg In Empty Bag 1 bag @ 0.2 MCG/KG/HR 3.94 mls/hr IV .Q24H [facility] Rx#:[id number] Piperacillin-Tazobactam 3 100 .375 gm In Sodium Chloride 0.9% 100 ml @ 25 mls/hr IVPB Q12HR [facility] Rx #:[id number] Sodium Ferric Gluconat- 100 Sucrose 125 mg In Sodium Chloride 0.9% 100 ml @ 100 mls/hr IVPB DAILY [facility] Rx#:[id number] Oral 325 100 Output: Urine 1150 1880 170 Other: Voiding Method Indwelling Catheter Indwelling Catheter ABP, PAP, CO, CI - Last Documented Arterial Blood Pressure 125/73 - Labs CBC & Chem 7: 08/31/23 09:12 08/31/23 09:12 Labs: Abnormal Lab Results - Last 24 Hours (Table) 08/30/23 08/30/23 08/30/23 Range/Units 10:59 16:39 16:41 RBC (3.80-5.40) m/uL Hgb (11.4-16.0) gm/dL Hct (34.0-46.0) % RDW (11.5-15.5) % Lymphocytes # (1.0-4.8) k/uL Chloride (98-107) mmol/L Carbon Dioxide (22-30) mmol/L BUN (7-17) mg/dL Creatinine (0.52-1.04) mg/dL Glucose (74-99) mg/dL POC Glucose (mg/dL) 159 H 374 H 139 H (70-110) mg/dL 08/30/23 08/31/23 08/31/23 Range/Units 21:25 06:59 09:12 RBC 3.18 L (3.80-5.40) m/uL Hgb 9.1 L (11.4-16.0) gm/dL Hct 29.2 L (34.0-46.0) % RDW 18.1 H (11.5-15.5) % Lymphocytes # 0.8 L (1.0-4.8) k/uL Chloride (98-107) mmol/L Carbon Dioxide (22-30) mmol/L BUN (7-17) mg/dL Creatinine (0.52-1.04) mg/dL Glucose (74-99) mg/dL POC Glucose (mg/dL) 205 H 119 H (70-110) mg/dL 08/31/23 Range/Units 09:12 RBC (3.80-5.40) m/uL Hgb (11.4-16.0) gm/dL Hct (34.0-46.0) % RDW (11.5-15.5) % Lymphocytes # (1.0-4.8) k/uL Chloride 116 H (98-107) mmol/L Carbon Dioxide 18 L (22-30) mmol/L BUN 56 H (7-17) mg/dL Creatinine 2.64 H (0.52-1.04) mg/dL Glucose 108 H (74-99) mg/dL POC Glucose (mg/dL) (70-110) mg/dL Assessment and Plan Plan: Assessment: 1. Acute kidney injury on chronic kidney disease secondary to ATN secondary to cardiorenal syndrome and cardiac arrest. Creatinine 1.5 admission and peaked at 2.98 this admission - 2.64 today. Patient was on hemodialysis in the past with last treatment being July 02, 2023. 2. Volume overload. Improving with diuresis. 3. Acute on chronic diastolic CHF. 4. Diabetes mellitus. 5. Right foot wound. 6. Coronary disease with cardiac stenting. 7. Status post PEA arrest with concern for anoxic encephalopathy. 8. Septic shock with urine culture positive for E. coli and catheter tip culture positive for Corynebacterium. On antibiotics. Off vasopressors. 9. Metabolic acidosis secondary to acute kidney injury and IV fluids. On oral bicarb. 10. Anemia. Iron deficiency noted. Receiving IV iron. On Aranesp. Plan: Maintain IV Lasix. Encouraged oral intake. Avoid nephrotoxins. Continue to monitor renal function and urine output. Increase bicarb frequency to 3 times daily.
[2023-08-31 11:42] LABS: Glucose,Whole Blood 143 mg/dL (70-110)
--- NOTE | 2023-08-31 12:49 | P.PN ---
Subjective Progress Note Date: 08/31/23 Pulmonary consult dated August 23, 2023. This is a 57-year-old female who was admitted back on August 18, for a right heel wound. Early this morning, the patient had a cardiopulmonary arrest. The patient apparently was initially found to be bradycardic, and then had asystole. She received 3 rounds of epinephrine. She arrived to the intensive care unit this morning at 630, having been intubated on the floor by anesthesia. In the ICU, the patient had an episode of pulseless electrical activity, and asystole, and received 2 rounds of epinephrine, a dose of atropine, and some sodium bicarbonate. I came into the intensive care unit this morning, early, to place a left internal jugular triple-lumen catheter, and a right femoral arterial line. Currently, the patient is on volume assist-control, rate 16, tidal volume 400, FiO2 50%, PEEP of 5. The most recent blood gases show pO2 of 75, pCO2 49, pH is 7.44. Arterial blood gases shortly after intubation showed a pO2 of 268, pCO2 of 38, and a pH of 7.25. The patient is currently on norepinephrine at 1.4 mcg/min, and saline at 50 cc an hour. Current labs include a white count 13.8, hemoglobin 9.5, hematocrit 31, and a platelet count of 257,000. PT was 12.9 with an INR of 1.2. Sodium 135, potassium 4.9, chlorides 111, CO2 19, anion gap 5, BUN 62, creatinine 2.76. The patient's AST is 468. ALT is 286. Albumin is 2.1. Urine, is suspicious for possible infection. Brain CT Today, Shows No Acute Intracranial Process. Chest x-ray shows bilateral patchy airspace disease, right greater than left. Progress note dated August 24, 2023. The patient is seen today in the intensive care unit, room 255. The patient remains on the mechanical ventilator. Current settings include volume assist- control, rate 16, tidal volume 400, FiO2 50%, PEEP of 5. The tidal volume will be dropped down to 350, and the FiO2 will be dropped down to 40%, current blood gases show pO2 132, pCO2 34, pH is 7.37. The patient continues on 0.9 at 50 cc an hour, propofol at 20 mcg/kg/min, and vital 1.2 at 10 cc an hour, with a goal of 48. The patient is discovered to have gram-negative bacilli in the urine. She continues on Zosyn. White count 9, hemoglobin 9.6, hematocrit 30.1, platelet count 242,000. Sodium 138, potassium 4.7, chloride 113, CO2 18, BUN 63, and creatinine 2.65. Anion gap is 7. The patient's AST is 199, ALT is 235. Troponin is 0.565. Albumin is 2.0. The gram-negative bacilli in the urine was discovered to be Escherichia coli. Chest x-ray shows an endotracheal tube that is too low in the trachea, and should be pulled back. In addition, there is evidence of underlying vascular congestion, and/or infiltrates. Progress note dated August 25, 2023. 57-year-old female seen again in room 255. The patient remains on mechanical ventilator. She is on volume assist-control, rate 16, tidal volume 350, FiO2 40%, PEEP of 5. Blood gases show a pO2 of 95, pCO2 of 39, pH is 7.31. The patient is getting propofol 35 mcg/kg/min, saline at 50 cc an hour, and dopamine at 2.5 mcg/kg/min. The patient continues on Zosyn for Escherichia coli. The patient did develop some bradycardia, overnight, which required her to be on do pamine. We are going to order some Dopplers of the lower extremities. In addition, we will do a daily interruption of sedation, and a spontaneous breathing trial. Count is 10.5, hemoglobin 10.3, hematocrit 32.7, platelet count 314,000. Sodium 140, potassium 4.8, chlorides 113, CO2 18, BUN 57, cr eatinine 2.49. Glucose is 142. Magnesium is 2.1, calcium is 7.0. The patient's urine specimen from August 21, revealed Escherichia coli. Dopplers of the lower extremities were negative. Chest x-ray shows some patchy bilateral infiltrates, more left-sided than right-sided. On today's evaluation of 08/26/2023, the patient is being seen for a follow-up. The patient is post cardiopulmonary arrest that occurred on 08/23/2023 and the patient return of spontaneous circulation. Subsequently, the patient was extubated on 08/25/2023. The patient is currently on 4 L of oxygen by nasal cannula. The patient remains encephalopathic. At times, restless in bed and somewhat agitated. Based on that, made recommendations to start the patient on Precedex at the low-dose to control her restlessness and agitation. She is also noted to have a right ankle fracture and a chronic nonhealing heel ulcer, stage [place]. She was also found to have an E. coli in her urine possibly underlying urine tract infection on 08/22/2023. On today's evaluation, the patient is on 40s of oxygen by nasal cannula. Chest x-ray showing cardiomegaly and the patient has a left subclavian triple-lumen catheter in place. Hemodynamically stable on no pressors. WBC count of 8.6 with a hemoglobin 8.5 and a platelet count of 217. BUN is 51 with a creatinine of 2.28 and a sodium level is at 141 and a bicarb level is at 17. The patient is moving all 4 extremities without any limitation. The patient is currently afebrile. Nephrology is on the case regarding MARYLOU which is probably secondary to ATN and has creatinine is being monitored. Fluid balance over the past 24 hours has been 250 cc positive and the patient shows no signs of any significant fluid overload. The patient is currently on IV Zosyn regarding the possibility of an aspiration/E. coli urinary tract infection and is stage III right heel wound. She remains on bronchodilators. She is on no pressors for now. No other significant events overnight. As mentioned, she was extubated yesterday and the chest x-ray shows distal stable left-sided pleural effusion. The echocardiogram that was done on 08/20/2023 showed a preserved left ventricular ejection fraction, no significant valvular abnormalities. The patient also had Doppler of the lower extremity on 08/25/2023 that revealed no evidence of any DVT. There was a prominent lymph node in the right groin measuring 2.6 cm in size. The patient did have a catheter in her right IJ at the time of admission that was removed and the cultures came back positive for corynebacterium. On today's evaluation of 08/27/2023, the patient is being seen for a follow-up. Patient is postcardiac arrest and the patient is having some signs of anoxic encephalopathy. She was restless and confused and somewhat agitated. Based on that, the patient was started on Precedex yesterday and Precedex is running at 0.4 mcg/kg/h. No significant agitation at this point in time. She seems to be calm and comfortable. She follows occasional simple commands. No agitation. No focal neurological deficits. She is currently on 2 L of oxygen nasal cannula and she is also on lactated Ringer at rate of 50 cc an hour. Urine output is in order of 30 cc an hour. Overall fluid balance has been +700 cc over the past 24 hours. The blood work shows a WC count of 8.2 with a hemoglobin 8.6 and a platelet count of 200, BUN is at 48 with a creatinine of 2.22 and a sodium level of 141. The serum bicarb level is at 18. A repeat limited echocardiogram was done yesterday and the patient showed improvement and in the LV function and the patient ejection fraction is in order of 55 to 60% without any significant segmental wall motion abnormalities. The patient is afebrile. The patient is hemodynamically stable at this point in time. Nephrology on the case regarding her chronic renal failure. On today's evaluation of 08/28/2023, the patient continues to require Precedex for increased agitation and restlessness. While off sedation, thrashes around. Currently she is calm and comfortable being on Precedex at 0.7 mcg/kg/h. She is on 3 L of oxygen by nasal cannula. No signs of any respiratory distress. No fo tete neurological deficits. She continues to complain of chest wall soreness and pain related to CPR and based on that the patient was given IV Tylenol and she is also [place] for pain control. WBC count is 7.1 with a hemoglobin of 8.7 and a platelet count of 214. BUN is at 50 with a creatinine of 2.45 and a sodium level of 140 with a potassium level of 5.1. She is afebrile. She is hemodynamically stable at this point in time. 08/30/2023, the patient is being seen for a follow-up. Remains encephalopathic, speech at times is garbled. Follows commands. She is not consistently having a conversation. A repeat CAT scan of the brain was done on 08/28/2023 and the findings showed no acute abnormalities. EEG was also done on 08/29/2023 and it showed abnormal slowing and mild to moderate degree of encephalopathy with generalized cerebral dysfunction. The patient is clinically stable and hemod ynamically stable. No respiratory distress. Adequate swallow without any risk of aspiration. Chest x-ray from today showing increased incisional markings bilaterally, could be a component of fluid overload. Meanwhile, the patient is on no pressors. She is afebrile. She is on oxygen at 3 L. Blood work from today shows a sodium level of 142, BUN of 56 with a creatinine of 2.98 and a creatinine remained stable with a potassium level of 5 and a serum bicarb of 18. Serum cortisol 15. TSH is at 2.5. No hypothermia. The patient remains on DuoNeb updrafts, she remains on aspirin 81 mg p.o. daily combination with Plavix. She is on IV iron. She is covered empirically with IV Zosyn. She is on Seroquel 150 mg p.o. twice a day. Agitation is adequately controlled. 08/31/2023, the patient continues to have episodes of agitation. Overnight, the patient was quite restless and agitated. She had to be placed on Precedex. Initially at 0.8 mcg later on dropped down to 0.4 mcg and she is quite sedated at this point in time and the medication will be discontinued patient remains on 3 L of oxygen by nasal cannula. Moving all 4 extremities. Arousable and seems to be much comfortable this morning. Fluid balance is -1.9 L over the past 24 hours and the patient has responded to diuretics. Electrolytes are all stable with a BUN of 56 and a creatinine of 2.6 and a sodium is at 144, WBC count is at 7.3 with a hemoglobin 9.1. Remains on Seroquel 150 mg p.o. twice daily. Remains on IV Lasix 40 mg every 12 hours with a negative fluid balance. Remains on aspirin and Plavix. Rest of the medications are essentially unchanged for now. IV fluids are currently at KVO. Objective - Vital Signs Vital signs: Vital Signs Temp 97.4 F L 08/31/23 05:00 Pulse 57 L 08/31/23 07:00 Resp 12 08/31/23 07:00 BP 120/71 08/31/23 07:00 Pulse Ox 95 08/31/23 08:45 FiO2 40 08/25/23 11:38 Intake & Output 08/30/23 08/31/23 08/31/23 18:59 06:59 18:59 Intake Total 805 293.444 18.911 Output Total 1150 1880 170 Balance -345 -1586.556 -151.089 Weight 78.8 kg Intake: IV 280 100 Invasive Line 8 30 Piperacillin-Tazobactam 3 100 .375 gm In Sodium Chloride 0.9% 100 ml @ 25 mls/hr IVPB Q12HR [facility] Rx #:[id number] Piperacillin-Tazobactam 3 100 .375 gm In Sodium Chloride 0.9% 100 ml @ 25 mls/hr IVPB Q8H [facility] Rx#: [id number] Sodium Chloride 0.45% 1, 150 000 ml @ 50 mls/hr IV . Q20H [facility] Rx#:[id number] Intake, IV Titration 200 93.444 18.911 Amount Dexmedetomidine/0.9% NaCl 93.444 18.911 (Pmx) 400 mcg In Empty Bag 1 bag @ 0.2 MCG/KG/HR 3.94 mls/hr IV .Q24H [facility] Rx#:[id number] Piperacillin-Tazobactam 3 100 .375 gm In Sodium Chloride 0.9% 100 ml @ 25 mls/hr IVPB Q12HR [facility] Rx #:[id number] Sodium Ferric Gluconat- 100 Sucrose 125 mg In Sodium Chloride 0.9% 100 ml @ 100 mls/hr IVPB DAILY [facility] Rx#:[id number] Oral 325 100 Output: Urine 1150 1880 170 Other: Voiding Method Indwelling Catheter Indwelling Catheter ABP, PAP, CO, CI - Last Documented Arterial Blood Pressure 125/73 - Exam No acute distress, calm and comfortable on 3 L, remains encephalopathic, currently on Precedex which is being gradually weaned off. Head exam was generally normal. There was no scleral icterus or corneal arcus. Mucous membranes were moist. HEENT examination is grossly unremarkable. Neck supple. Full range of motion. No adenopathy thyromegaly or neck vein distention. Cardiovascular examination reveals regular rhythm rate. S1-S2 normal. No S3 or S4. No discernible murmur noted. Heart sounds are distant. Lungs reveal scattered bilateral rhonchi. No wheezes or crackles. Breath sounds equal bilaterally. Abdomen soft without bowel sounds. Extremities are intact. No cyanosis clubbing or edema. The patient has a soft splint in her right lower extremity. Pulses are diminished at the present in all 4 extremities. Skin is without rash or lesion. Stage III nonhealing heel ulcer in the right lower extremity. Neurologic examination No focal neurological deficits. Pupils are equal reactive to light. There is baseline encephalopathy and occasional agitation. - Labs CBC & Chem 7: 08/31/23 09:12 08/31/23 09:12 Labs: Abnormal Lab Results - Last 24 Hours (Table) 08/30/23 08/30/23 08/30/23 Range/Units 10:59 16:39 16:41 RBC (3.80-5.40) m/uL Hgb (11.4-16.0) gm/dL Hct (34.0-46.0) % RDW (11.5-15.5) % Lymphocytes # (1.0-4.8) k/uL POC Glucose (mg/dL) 159 H 374 H 139 H (70-110) mg/dL 08/30/23 08/31/23 08/31/23 Range/Units 21:25 06:59 09:12 RBC 3.18 L (3.80-5.40) m/uL Hgb 9.1 L (11.4-16.0) gm/dL Hct 29.2 L (34.0-46.0) % RDW 18.1 H (11.5-15.5) % Lymphocytes # 0.8 L (1.0-4.8) k/uL POC Glucose (mg/dL) 205 H 119 H (70-110) mg/dL Assessment and Plan Plan: Cardiopulmonary arrest, x 2, with cardiopulmonary resuscitation, and return of spontaneous circulation on 08/23/23, echocardiogram shows a preserved LV function. No significant valvular abnormalities at this point in time. Cardiac rhythm is sinus. Actively patient remains on encephalopathy which is a p ostcardiac arrest encephalopathy. Currently on Seroquel. Requiring on and off Precedex. Acute hypoxic respiratory failure, postcardiac arrest, intubated and subsequently extubated on 08/25/2023 currently on 3 L of O2 nasal cannula S/P intubation, and mechanical ventilation, secondary to cardiopulmonary arrest, August 23, 2023. She was extubated on 08/25/23 Encephalopathy with possibility of an underlying hypoxic encephalopathy postcardiac arrest, CAT scan of the brain that was done showed no evidence of any acute abnormalities. The patient is currently Precedex as the patient was showing signs of restlessness and agitation. She seems to be calm and comfortable and there is no focal neurological deficit on today's evaluation. She is moving all 4 extremities without any limitation. She is still requiring Precedex for increased agitation and restlessness/delirium/hypoxic encephalopath y. CAT scan of the brain from 08/28/2023 was negative. EEG showed mild to moderate encephalopathy. History of congestive heart failure. Echocardiogram from this current admission shows a preserved LV function.. Coronary artery disease cardiomyopathy and the patient is post non-ST segment elevation myocardial infarction. Cardiac catheterization was done on 06/24/2023 and the patient had successful stenting of the proximal RCA with reduction of the stenosis from 70% to 0%. Troponin peaked at 1. Stage III chronic kidney disease, creatinine is stable for now, the patient required hemodialysis during earlier hospitalization and the last hemodialysis was on 07/02/2023. The patient has not received hemodialysis since then. Dialysis catheter was removed and the catheter was positive for corynebacterium. Right heel pressure ulcer, stage III Subacute fracture of the medial and lateral malleolus, she has a soft cast in the right lower extremity History of hypertension. History of hyperlipidemia. History of type 2 diabetes mellitus. History of severe pulmonary hypertension. History of COPD. History of peripheral neuropathy. Chest wall pain related to CPR Plan Wean off Precedex, monitor mental status Seroquel 150 mg p.o. twice a day The patient is currently hemodynamically stable on no pressors. Cardiac rhythm is sinus. Will obtain repeated limited echocardiogram to reevaluate LV function. The echocardiogram shows a preserved LV function. Continue IV Lasix and the patient renal function is stable and the patient is a negative fluid balance. Utilize [place] for pain control Monitor renal function , currently stable creatinine Able to swallow without any major difficulties continue aspirin and Plavix Continue IV Zosyn No pressors for now Continue Lipitor 40 mg p.o. daily Continue Norvasc 5 mg p.o. daily Continue Imdur 30 mg p.o. daily Heparin subcu for DVT prophylaxis Neurology consultation is appreciated Will continue to follow The patient be kept in ICU for now.
--- NOTE | 2023-08-31 13:11 | P.PN ---
Subjective Progress Note Date: 08/31/23 Principal diagnosis: Reason for follow-up is right heel diabetic foot ulcer Patient is a 57-year-old female with a past medical history significant for diabetes mellitus hypertension hyperlipidemia history of renal insufficiency requiring dialysis currently not on dialysis and the patient also have a chronic nonhealing wound to the right heel area, present to the hospital with increasing shortness of breath and swelling concerning for fluid overload.Patient did have a cardiac arrest around 4 AM 08/23/2023 with the patient went into asystole got resuscitated intubated and transferred to the ICU subsequently have another cardiac arrest with PEA rhythm not resuscitated. On today's evaluation that is 08/30/2023, patient has been afebrile, patient is breathing comfortably and is currently on 4 L nasal cannula oxygen, patient seem to be slightly confused today denies any chest pain or worsening cough no vomiting or diarrhea reported by the aide at the bedside. Patient white count is 7.3, creatinine is 2.64 Objective - Vital Signs Vital signs: Vital Signs Temp 98.1 F 08/31/23 08:00 Pulse 77 08/31/23 11:00 Resp 18 08/31/23 11:00 BP 131/67 08/31/23 11:00 Pulse Ox 93 L 08/31/23 11:00 FiO2 40 08/25/23 11:38 Intake & Output 08/30/23 08/31/23 08/31/23 18:59 06:59 18:59 Intake Total 805 293.444 242.129 Output Total 1150 1880 685 Balance -345 -1586.556 -442.871 Weight 78.8 kg Intake: IV 280 100 220 Invasive Line 8 30 Normal Saline Carrier @ 20 5mL/hr Piperacillin-Tazobactam 3 100 100 .375 gm In Sodium Chloride 0.9% 100 ml @ 25 mls/hr IVPB Q12HR [facility] Rx #:[id number] Piperacillin-Tazobactam 3 100 .375 gm In Sodium Chloride 0.9% 100 ml @ 25 mls/hr IVPB Q8H [facility] Rx#: [id number] Sodium Chloride 0.45% 1, 150 000 ml @ 50 mls/hr IV . Q20H [facility] Rx#:[id number] Sodium Ferric Gluconat- 100 Sucrose 125 mg In Sodium Chloride 0.9% 100 ml @ 100 mls/hr IVPB DAILY [facility] Rx#:[id number] Intake, IV Titration 200 93.444 22.129 Amount Dexmedetomidine/0.9% NaCl 93.444 22.129 (Pmx) 400 mcg In Empty Bag 1 bag @ 0.2 MCG/KG/HR 3.94 mls/hr IV .Q24H [facility] Rx#:[id number] Piperacillin-Tazobactam 3 100 .375 gm In Sodium Chloride 0.9% 100 ml @ 25 mls/hr IVPB Q12HR [facility] Rx #:[id number] Sodium Ferric Gluconat- 100 Sucrose 125 mg In Sodium Chloride 0.9% 100 ml @ 100 mls/hr IVPB DAILY [facility] Rx#:[id number] Oral 325 100 Output: Urine 1150 1880 685 Other: Voiding Method Indwelling Catheter Indwelling Catheter Indwelling Catheter ABP, PAP, CO, CI - Last Documented Arterial Blood Pressure 125/73 - Exam GENERAL DESCRIPTION: Middle-aged female intubated on the vent RESPIRATORY SYSTEM: Unlabored breathing , decreased breath sounds at bases HEART: S1 S2 regular rate and rhythm , ABDOMEN: Soft , no tenderness EXTREMITIES: Right heel wound is currently dressed - Labs CBC & Chem 7: 08/31/23 09:12 08/31/23 09:12 Labs: Abnormal Lab Results - Last 24 Hours (Table) 08/30/23 08/30/23 08/30/23 Range/Units 16:39 16:41 21:25 RBC (3.80-5.40) m/uL Hgb (11.4-16.0) gm/dL Hct (34.0-46.0) % RDW (11.5-15.5) % Lymphocytes # (1.0-4.8) k/uL Chloride (98-107) mmol/L Carbon Dioxide (22-30) mmol/L BUN (7-17) mg/dL Creatinine (0.52-1.04) mg/dL Glucose (74-99) mg/dL POC Glucose (mg/dL) 374 H 139 H 205 H (70-110) mg/dL 08/31/23 08/31/23 08/31/23 Range/Units 06:59 09:12 09:12 RBC 3.18 L (3.80-5.40) m/uL Hgb 9.1 L (11.4-16.0) gm/dL Hct 29.2 L (34.0-46.0) % RDW 18.1 H (11.5-15.5) % Lymphocytes # 0.8 L (1.0-4.8) k/uL Chloride 116 H (98-107) mmol/L Carbon Dioxide 18 L (22-30) mmol/L BUN 56 H (7-17) mg/dL Creatinine 2.64 H (0.52-1.04) mg/dL Glucose 108 H (74-99) mg/dL POC Glucose (mg/dL) 119 H (70-110) mg/dL 08/31/23 Range/Units 11:39 RBC (3.80-5.40) m/uL Hgb (11.4-16.0) gm/dL Hct (34.0-46.0) % RDW (11.5-15.5) % Lymphocytes # (1.0-4.8) k/uL Chloride (98-107) mmol/L Carbon Dioxide (22-30) mmol/L BUN (7-17) mg/dL Creatinine (0.52-1.04) mg/dL Glucose (74-99) mg/dL POC Glucose (mg/dL) 143 H (70-110) mg/dL Assessment and Plan (1) Pressure ulcer of right heel, stage 3 Current Visit: No Status: Acute Code(s): L89.613 - PRESSURE ULCER OF RIGHT HEEL, STAGE 3 SNOMED Code(s): 18522952528748 (2) Type 2 diabetes mellitus with foot ulcer Current Visit: No Status: Acute Code(s): E11.621 - TYPE 2 DIABETES MELLITUS WITH FOOT ULCER; L97.509 - NON-PRESSURE CHRONIC ULCER OTH PRT UNSP FOOT W UNSP SEVERITY SNOMED Code(s): 956767548 (3) UTI (urinary tract infection) Current Visit: Yes Status: Acute Code(s): N39.0 - URINARY TRACT INFECTION, SITE NOT SPECIFIED SNOMED Code(s): 70149126 (4) Aspiration pneumonia Current Visit: Yes Status: Acute Code(s): J69.0 - PNEUMONITIS DUE TO INHALATION OF FOOD AND VOMIT SNOMED Code(s): 330011049 Plan: 1patient with chronic nonhealing wound to the right heel area which has been there for a couple of months now patient overall wound base looks clean with no slough tissue in the wound is not pulling out the wound more likely a pressure ulcer stage III with evidence of any secondary cellulitis, local wound care has been switched over to the wound VAC to continue management per wound care 2-patient did have cardiac arrest requiring resuscitation in this patient who d id have a chest x-ray with a right-sided infiltrate and question of aspiration pneumonia urine culture grew E. coli with some resistant pattern, sputum has been negative blood culture has been negative catheter tip cultures growing corynebacterium species more likely contamination with a blood culture negative no need for vancomycin. 3patient is afebrile white count remains to be normal 4- patient to continue with the current treatment of Zosyn and monitor clinical course closely Dictation was produced using [employer] dictation software. please excuse any grammatical, word or spelling errors. Time with Patient: Less than 30
--- NOTE | 2023-08-31 13:19 | P.PN ---
Subjective Progress Note Date: 08/31/23 57-year-old female came in with complaints of shortness of breath and orthopnea found to be in congestive heart failure exacerbation patient has congestive heart failure with reduced ejection fraction in the past patient has increasing pedal edema. Patient also has an ulcer in the right foot stage III-IV which appeared to be infected we will consult wound care and infectious disease. Patient was on hemodialysis during last hospitalization her creatinine presently is 1.5 which is significantly improved patient potassium is 5.5, patient is on Entresto and Aldactone Aldactone will be held Entresto will be continued since she is receiving IV Lasix and expecting her potassium to improve if it does not improve or get worse then Entresto need to be discontinued as well. Patient has hypervolemic hyponatremia and hyperglycemia. 08/21/2023 Was evaluated today on the medical floor. Patient was continued on IV Lasix overnight however she was no longer reporting any shortness of breath and her lower extremity edema has improved. She was taken off of the Lasix at this time due to increased creatinine up to 2.31 additionally potassium remains elevated at 5.7. Echocardiogram comes back showing an improved ejection fraction of 60 to 65% because of this and also the hyperkalemia patient will not be continued on entresto. Patient was evaluated by infectious disease who felt like that heel ulcer on the right side was more likely a pressure injury stage III and is recommending local wound care to continue with Aquacel. Patient is reporting significant pain to the right foot and feels like it is fractured. Upon review of the patient's chart she did have a x-ray completed of this 12 days ago ordered by her investment trader Dr. Mayen. Ankle x-ray did review a mildly displaced acute distal fibular fracture. Repeat x-ray of the foot and ankle completed today does reveal a subacute fractures of the medial and lateral malleolus. The lateral malleolus fracture was seen on the patient's prior exam the medial malleolus fracture may be new in the interval and this would be considered an unstable ankle fracture. There is interval 6 mm displacement of the lateral malleolus. There is a deep soft tissue ulcer at the plantar heel with no clear radiographic findings of a contagious osteomyelitis at this time. Orthooedics was consulted for this. 08/22/2023 Patient evaluated in follow-up today resting in bed. She was taken off of the Lasix remains off at this time. Bladder scan was requested and not done yesterday to rule out urinary retention, creatinine today is increased up to 2.56. Bladder scan was done require urinary straight catheterization of 550 mL taken out. Urinalysis was sent which is significantly abnormal. Patient is also noted to have multiple genital lesions which appear wartlike she admits to not having any routine gynecological screenings for many years. She is not having any vaginal bleeding or discharge. Renal ultrasound has been ordered to rule out any obstructive uropathy. 08/23/2023 Patient is evaluated today in follow-up patient had a cardiac event with cardiac arrest nurse behavioral health care around 445 AM with initial rhythm slowing asystole patient was started on CPR with ACS protocol patient did receive ROSC after 6 to 8 minutes and was transferred to the intensive care unit. Patient upon arrival to the intensive care unit had another episode of cardiac arrest patient had bradycardia while on pressors in the ICU patient was intubated following the first cardiac arrest and is currently on the mechanical ventilator 50% FiO2. Chest x-ray showing similar interstitial and patchy component airspace disease right greater than left. There is a possible trace left pleural effusion. A brain CT which shows no acute intracranial process. Blood work today shows a white blood cell count of 13.8, hemoglobin 9.5, sodium level of 135, BUN of 62, creatinine of 2.76. AST ALT and alk phosphatase are significantly elevated consistent with a shock liver. TSH 3.310. Urinalysis is abnormal. Her urine culture is showing gram-negative bacilli patient is covered for the urinary tract infection as well as aspiration with IV Zosyn being managed by infectious disease. Patient is currently sedated with propofol and did require vasopressor support with Levophed which has been weaned at this time. Will discontinue the gabapentin patient is continued on aspirin Plavix and statin has been placed on hold. There is concern for possible arrhythmia precipitating the asystole additionally we need to rule out embolism and a D-dimer has been ordered. 08/24/2023 Patient is seen in follow-up today continues in the ICU on mechanical ventilation. FiO2 is 50% although titrating and was just placed at 40% with a PEEP of 5. Chest x-ray today shows that the ET tube is 7 mm from the sonam suggesting a pulled back 2 cm and reassess and also suspected underlying vascular congestion. Neuro is following and per nursing staff patient is following some simple commands and undergoing sedation holidays. Patient noted to have reduced EF of 30 to 35% and cardiology had been following. Will reconsult and appreciate input and recommendations. patient did have dialysis catheter removed and sent for cultures which are pending. Infectious disease following and patient is maintained on antibiotic. D-dimer is elevated above 16 and will attempt to obtain a VQ scan.57-year-old female came in with complaints of shortness of breath and orthopnea found to be in congestive heart failure exacerbation patient has congestive heart failure with reduced ejection fraction in the past patient has increasing pedal edema. Patient also has an ulcer in the right foot stage III-IV which appeared to be infected we will consult wound care and infectious disease. Patient was on hemodialysis during last hospitalization her creatinine presently is 1.5 which is significantly improved patient potassium is 5.5, patient is on Entresto and Aldactone Aldactone will be held Entresto will be continued since she is receiving IV Lasix and expecting her potassium to improve if it does not improve or get worse then Entresto need to be discontinued as well. Patient has hypervolemic hyponatremia and hyperglycemia. 08/21/2023 Was evaluated today on the medical floor. Patient was continued on IV Lasix overnight however she was no longer reporting any shortness of breath and her lower extremity edema has improved. She was taken off of the Lasix at this time due to increased creatinine up to 2.31 additionally potassium remains elevated at 5.7. Echocardiogram comes back showing an improved ejection fraction of 60 to 65% because of this and also the hyperkalemia patient will not be continued on entresto. Patient was evaluated by infectious disease who felt like that heel ulcer on the right side was more likely a pressure injury stage III and is recommending local wound care to continue with Aquacel. Patient is reporting significant pain to the right foot and feels like it is fractured. Upon review of the patient's chart she did have a x-ray completed of this 12 days ago ordered by her investment trader Dr. Mayen. Ankle x-ray did review a mildly displaced acute distal fibular fracture. Repeat x-ray of the foot and ankle completed today does reveal a subacute fractures of the medial and lateral malleolus. The lateral malleolus fracture was seen on the patient's prior exam the medial malleolus fracture may be new in the interval and this would be considered an unstable ankle fracture. There is interval 6 mm displacement of the lateral malleolus. There is a deep soft tissue ulcer at the plantar heel with no clear radiographic findings of a contagious osteomyelitis at this time. Orthooedics was consulted for this. 08/22/2023 Patient evaluated in follow-up today resting in bed. She was taken off of the Lasix remains off at this time. Bladder scan was requested and not done yesterday to rule out urinary retention, creatinine today is increased up to 2.56. Bladder scan was done require urinary straight catheterization of 550 mL taken out. Urinalysis was sent which is significantly abnormal. Patient is also noted to have multiple genital lesions which appear wartlike she admits to not having any routine gynecological screenings for many years. She is not having any vaginal bleeding or discharge. Renal ultrasound has been ordered to rule out any obstructive uropathy. 08/23/2023 Patient is evaluated today in follow-up patient had a cardiac event with cardiac arrest nurse behavioral health care around 445 AM with initial rhythm slowing asystole patient was started on CPR with ACS protocol patient did receive ROSC after 6 to 8 minutes and was transferred to the intensive care unit. Patient upon arrival to the intensive care unit had another episode of cardiac arrest patient had bradycardia while on pressors in the ICU patient was intubated following the first cardiac arrest and is currently on the mechanical ventilator 50% FiO2. Chest x-ray showing similar interstitial and patchy component airspace disease right greater than left. There is a possible trace left pleural effusion. A brain CT which shows no acute intracranial process. Blood work today shows a white blood cell count of 13.8, hemoglobin 9.5, sodium level of 135, BUN of 62, creatinine of 2.76. AST ALT and alk phosphatase are significantly elevated consistent with a shock liver. TSH 3.310. Urinalysis is abnormal. Her urine culture is showing gram-negative bacilli patient is covered for the urinary tract infection as well as aspiration with IV Zosyn being managed by infectious disease. Patient is currently sedated with propofol and did require vasopressor support with Levophed which has been weaned at this time. Will discontinue the gabapentin patient is continued on aspirin Plavix and statin has been placed on hold. There is concern for possible arrhythmia precipitating the asystole additionally we need to rule out embolism and a D-dimer has been ordered. 08/24/2023 Patient is seen in follow-up today continues in the ICU on mechanical ventilat ion. FiO2 is 50% although titrating and was just placed at 40% with a PEEP of 5. Chest x-ray today shows that the ET tube is 7 mm from the sonam suggesting a pulled back 2 cm and reassess and also suspected underlying vascular congestion. Neuro is following and per nursing staff patient is following some simple commands and undergoing sedation holidays. Patient noted to have reduced EF of 30 to 35% and cardiology had been following. Will reconsult and appreciate input and recommendations. patient did have dialysis catheter removed and sent for cultures which are pending. Infectious disease following and patient is maintained on antibiotic. D-dimer is elevated above 16 and will attempt to obtain a VQ scan. 08/25/23 : Patient seen and evaluated at bedside, patient extubated around noon, transition to 5 L of oxygen to nasal cannula. Family at bedside, blood work reviewed hemoglobin 10.3, serum chemistry reviewed sodium 140 potassium 4.8 BUN 57 creatinine 2.49 calcium of 7. 08/26/23 : Patient seen and evaluated at bedside, patient remains in medical ICU, does complain of chest pain from CPR. Patient has been weaned off dopamine, cardiology following, blood work reviewed, hemoglobin 8.5 platelet count of 217, serum chemistry shows sodium 141 BUN 51 creatinine 2.28. Followed up by nephrology as well MARYLOU secondary to ATN continue to monitor intake and output 08/27/23: Patient seen and evaluated bedside, on evaluation patient is disoriented, patient is drowsy however likely having acute delirium. Seen by cardiology echocardiogram shows preserved ejection fraction continue with current medical management, patient on Precedex for acute delirium, continue to remain on oxygen supplementation with nasal cannula blood work reviewed CBC showed WBC 8.2 hemoglobin 8.6 serum chemistry showed creatinine of 2.22. Patient remains delirious, daughter at bedside all questions answered 08/28/2023 Patient was agitated earlier requiring Seroquel and Placed on Precedex because s he was has risk to self and others Currently when I saw the patient she was sleepy However she is not tachypneic show does not look in pain. Vitals are stable She is saturating 91% on 2 L oxygen via nasal cannula She remains on Zosyn for pneumonia and UTI She is on normal saline at 50 mL/h 08/29/2023 Patient remains sleepy, she still has some encephalopathy But she is on Precedex which will be tapered off by pulmonary team today to assess her mentation as well. Patient has been followed by neurology for suspected anoxic brain injury after her cardiac arrest and return of circulation on 08/22. There is no evidence of seizure-like activity She has catheter tip infection with culture growing Corynebacterium species and she is currently covered with Zosyn which also help for her right heel pressure ulcer and aspiration pneumonia and UTI. Cardiology evaluated the patient and there is no clear evidence for her cardiac arrest although she has history of coronary artery disease and previous stents. Currently with no chest pain. She remains on aspirin and Plavix, gentle hydration, IV steroids 08/30/2023 Today her sedation remains off however patient mentation not completely resolved, it is somewhat better as she was more sleepy yesterday She is eating okay, swallowing is fine She was started on IV Lasix twice daily per press leader. She has good urine output and normal send discontinued She is hemodynamically stable and oxygenation is acceptable Remains on aspirin and Plavix and Seroquel 08/31/23: Seen and evaluated at bedside, patient remains on 4 L of oxygen, blood work reviewed, WBC 7.3 hemoglobin 9.1 platelet count of 203 glucose 119. CBC reviewed showed WBC 7.3 hemoglobin 9.1 platelet count of 203.. Neurology consulted and following. Patient is awake and alert able to answer questions and follow commands sister at bedside all questions answered PHYSICAL EXAMINATION: GENERAL: The patient is on nasal cannula, l alert to person however does get confused during conversation HEENT: Pupils are round and equally reacting to light. EOMI. CARDIOVASCULAR: S1 and S2 present. No murmurs, rubs, or gallops. PULMONARY: Decreased breath sounds bilaterally ABDOMEN: Soft, nontender, nondistended, normoactive bowel sounds. No palpable organomegaly. MUSCULOSKELETAL: No joint swelling or deformity. EXTREMITIES: No cyanosis, clubbing, bilateral pedal edema NEUROLOGICAL: pupils reactive unable to assess sedated SKIN: Patient has right plantar surface ulcer on the posterior foot stage III-IV with areas of necrotic tissue Assessment and plan * Asystole/cardiopulmonary arrest x 2 with CPR/ROSC * Respiratory failure requiring intubation s/p extubation 08/25/2023 * Acute metabolic encephalopathy * Congestive heart failure with systolic dysfunction acute on chronic exacerbation * Ischemic cardiomyopathy with improved EF * Acute kidney injury secondary to ATN on chronic kidney disease stage III * Urinary tract infection with E. coli * Subacute fracture of the medial and lateral malleolus, orthopedics following * Right heel stage III pressure injury continue local wound care with aquacel ID following. * Genital lesions, will need machine heddle cleaner follow up outpatient for routine screenings * Hypertension * Hyperlipidemia * Type 2 diabetes mellitus uncontrolled hgb a1c 12.1 * Severe pulmonary hypertension * COPD without any acute exacerbation * Peripheral neuropathy * Patient continues to remain critically ill, was intubated s/p extubation, weaned off to nasal cannula 4 L * In regards to acute encephalopathy likely post ICU delirium, neurology was consulted continue with frequent reorientation, patient is off Precedex, CT head negative for acute intracranial process EEG is abnormal with background slowing encephalopathy noted, MRI brain requested by neurology * In regards to urinary tract infection, chronic nonhealing wound and right heel, urine cultures grew E. coli. Patient treated with IV antibiotic received IV Zosyn * In regards to aspiration pneumonia,, continue patient on IV Zosyn managed by infectious disease * In regards to cardiomyopathy patient weaned off pressor support, dopamine weaned off as well, continue current medications including aspirin, Plavix, cardiology following continue IV Lasix nephrology following * In regards to suspicion for pulm embolism venous ultrasound lower extremity ordered no evidence of DVT noted on subcu heparin for DVT prophylaxis * In regards to diabetes mellitus continue patient on Accu-Cheks, continue correctional insulin Objective - Vital Signs Vital signs: Vital Signs Temp 97.4 F L 08/31/23 05:00 Pulse 57 L 08/31/23 07:00 Resp 12 08/31/23 07:00 BP 120/71 08/31/23 07:00 Pulse Ox 95 08/31/23 08:45 FiO2 40 08/25/23 11:38 Intake & Output 08/30/23 08/31/23 08/31/23 18:59 06:59 18:59 Intake Total 805 293.444 18.911 Output Total 1150 1880 170 Balance -345 -1586.556 -151.089 Weight 78.8 kg Intake: IV 280 100 Invasive Line 8 30 Piperacillin-Tazobactam 3 100 .375 gm In Sodium Chloride 0.9% 100 ml @ 25 mls/hr IVPB Q12HR [facility] Rx #:[id number] Piperacillin-Tazobactam 3 100 .375 gm In Sodium Chloride 0.9% 100 ml @ 25 mls/hr IVPB Q8H [facility] Rx#: [id number] Sodium Chloride 0.45% 1, 150 000 ml @ 50 mls/hr IV . Q20H [facility] Rx#:[id number] Intake, IV Titration 200 93.444 18.911 Amount Dexmedetomidine/0.9% NaCl 93.444 18.911 (Pmx) 400 mcg In Empty Bag 1 bag @ 0.2 MCG/KG/HR 3.94 mls/hr IV .Q24H [facility] Rx#:[id number] Piperacillin-Tazobactam 3 100 .375 gm In Sodium Chloride 0.9% 100 ml @ 25 mls/hr IVPB Q12HR [facility] Rx #:[id number] Sodium Ferric Gluconat- 100 Sucrose 125 mg In Sodium Chloride 0.9% 100 ml @ 100 mls/hr IVPB DAILY [facility] Rx#:[id number] Oral 325 100 Output: Urine 1150 1880 170 Other: Voiding Method Indwelling Catheter Indwelling Catheter ABP, PAP, CO, CI - Last Documented Arterial Blood Pressure 125/73 - Labs CBC & Chem 7: 08/31/23 09:12 08/31/23 09:12 Labs: Abnormal Lab Results - Last 24 Hours (Table) 08/30/23 08/30/23 08/30/23 Range/Units 10:59 16:39 16:41 RBC (3.80-5.40) m/uL Hgb (11.4-16.0) gm/dL Hct (34.0-46.0) % RDW (11.5-15.5) % Lymphocytes # (1.0-4.8) k/uL POC Glucose (mg/dL) 159 H 374 H 139 H (70-110) mg/dL 08/30/23 08/31/23 08/31/23 Range/Units 21:25 06:59 09:12 RBC 3.18 L (3.80-5.40) m/uL Hgb 9.1 L (11.4-16.0) gm/dL Hct 29.2 L (34.0-46.0) % RDW 18.1 H (11.5-15.5) % Lymphocytes # 0.8 L (1.0-4.8) k/uL POC Glucose (mg/dL) 205 H 119 H (70-110) mg/dL
[2023-08-31 16:51] LABS: Glucose,Whole Blood 205 mg/dL (70-110)
[2023-08-31] MEDS: SODIUM BICARBONATE TAB 650 MG TAB PO SCH (16:54)
[2023-08-31 20:25] LABS: Glucose,Whole Blood 199 mg/dL (70-110)
[2023-09-01 03:02] LABS: Anisocytosis Slight; Basophils # (A) 0.1 k/uL (0-0.2); Basophils % (A) 1 %; Eosinophils # (A) 0.5 k/uL (0-0.7); Eosinophils % (A) 5 %; HCT 26.7 % (34.0-46.0); HGB 8.6 gm/dL (11.4-16.0); Hypochromasia Moderate; Lymphocytes # (A) 0.8 k/uL (1.0-4.8); Lymphocytes % (A) 9 %; MCHC 32.2 g/dL (31.0-37.0); MCV 93.1 fL (80.0-100.0); Macrocytosis Slight; Mean Platelet Volume 10.7; Monocytes # (A) 0.7 k/uL (0-1.0); Monocytes % (A) 7 %; Neutrophils # (A) 7.5 k/uL (1.3-7.7); Neutrophils % (A) 76 %; Platelet Count 204 k/uL (150-450); RBC 2.86 m/uL (3.80-5.40); RDW 18.9 % (11.5-15.5); WBC 9.8 k/uL (3.8-10.6)
[2023-09-01 03:25] LABS: African American GFR (CKD) 22 (>60 ml/min/1.73 sqM); Anion Gap 8 mmol/L; Blood Urea Nitrogen 55 mg/dL (7-17); Carbon Dioxide 24 mmol/L (22-30); Chloride 113 mmol/L (98-107); Glucose 114 mg/dL (74-99); Magnesium 2.2 mg/dL (1.6-2.3); Non-African American GFR(CKD) 19 (>60 ml/min/1.73 sqM); Sodium 145 mmol/L (137-145)
[2023-09-01 03:51] LABS: Potassium 4.6 mmol/L (3.5-5.1)
[2023-09-01 06:28] LABS: Glucose,Whole Blood 117 mg/dL (70-110)
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
--- NOTE | 2023-09-01 09:47 | P.PN ---
Subjective Patient is seen in follow-up for acute kidney injury. Renal function stable. On IV Lasix. Nonoliguric. Sitter present at bedside. No improvement in mentation. Vital signs are stable. General: Resting in bed. HEENT: On nasal cannula. LUNGS: No audible rhonchi or wheezes. HEART: Rate and Rhythm are regular. ABDOMEN: No distention. EXTREMITITES: 2+ edema. Objective - Vital Signs Vital signs: Vital Signs Temp 97.0 F L 09/01/23 04:00 Pulse 72 09/01/23 07:00 Resp 16 09/01/23 07:00 BP 132/76 09/01/23 07:00 Pulse Ox 98 09/01/23 08:46 FiO2 2 09/01/23 04:00 Intake & Output 08/31/23 09/01/23 09/01/23 18:59 06:59 18:59 Intake Total 287.547 205.462 5 Output Total 1450 2105 200 Balance -1162.453 -1899.538 -195 Intake: IV 260 135 5 Normal Saline Carrier @ 60 35 5 5mL/hr Piperacillin-Tazobactam 3 100 100 .375 gm In Sodium Chloride 0.9% 100 ml @ 25 mls/hr IVPB Q12HR [facility] Rx #:[id number] Sodium Ferric Gluconat- 100 Sucrose 125 mg In Sodium Chloride 0.9% 100 ml @ 100 mls/hr IVPB DAILY [facility] Rx#:[id number] Intake, IV Titration 27.547 70.462 0 Amount Dexmedetomidine/0.9% NaCl 27.547 70.462 0 (Pmx) 400 mcg In Empty Bag 1 bag @ 0.2 MCG/KG/HR 3.94 mls/hr IV .Q24H [facility] Rx#:[id number] Output: Urine 1450 2105 200 Other: Voiding Method Indwelling Catheter Indwelling Catheter ABP, PAP, CO, CI - Last Documented Arterial Blood Pressure 125/73 - Labs CBC & Chem 7: 09/01/23 02:51 09/01/23 02:47 Labs: Abnormal Lab Results - Last 24 Hours (Table) 08/31/23 08/31/23 08/31/23 Range/Units 11:39 16:48 20:24 RBC (3.80-5.40) m/uL Hgb (11.4-16.0) gm/dL Hct (34.0-46.0) % RDW (11.5-15.5) % Lymphocytes # (1.0-4.8) k/uL Chloride (98-107) mmol/L BUN (7-17) mg/dL Creatinine (0.52-1.04) mg/dL Glucose (74-99) mg/dL POC Glucose (mg/dL) 143 H 205 H 199 H (70-110) mg/dL Calcium (8.4-10.2) mg/dL 09/01/23 09/01/23 09/01/23 Range/Units 02:47 02:51 06:27 RBC 2.86 L (3.80-5.40) m/uL Hgb 8.6 L (11.4-16.0) gm/dL Hct 26.7 L (34.0-46.0) % RDW 18.9 H (11.5-15.5) % Lymphocytes # 0.8 L (1.0-4.8) k/uL Chloride 113 H (98-107) mmol/L BUN 55 H (7-17) mg/dL Creatinine 2.71 H (0.52-1.04) mg/dL Glucose 114 H (74-99) mg/dL POC Glucose (mg/dL) 117 H (70-110) mg/dL Calcium 8.0 L (8.4-10.2) mg/dL Assessment and Plan Plan: Assessment: 1. Acute kidney injury on chronic kidney disease secondary to ATN secondary to cardiorenal syndrome and cardiac arrest. Creatinine 1.5 admission and peaked at 2.98 this admission - 2.71 today. Patient was on hemodialysis in the past with last treatment being July 02, 2023. 2. Volume overload. Improving with diuresis. 3. Acute on chronic diastolic CHF. 4. Diabetes mellitus. 5. Right foot wound. 6. Coronary disease with cardiac stenting. 7. Status post PEA arrest with concern for anoxic encephalopathy. 8. Septic shock with urine culture positive for E. coli and catheter tip culture positive for Corynebacterium. On antibiotics. Off vasopressors. 9. Metabolic acidosis secondary to acute kidney injury and IV fluids. On oral bicarb. Better. 10. Anemia. Iron deficiency noted. Receiving IV iron. On Aranesp. Plan: Maintain IV Lasix. Encouraged oral intake. Avoid nephrotoxins. Continue to monitor renal function and urine output. Increase bicarb frequency to 3 times daily.
--- NOTE | 2023-09-01 11:34 | P.PN ---
Subjective Progress Note Date: 09/01/23 Pulmonary consult dated August 23, 2023. This is a 57-year-old female who was admitted back on August 18, for a right heel wound. Early this morning, the patient had a cardiopulmonary arrest. The patient apparently was initially found to be bradycardic, and then had asystole. She received 3 rounds of epinephrine. She arrived to the intensive care unit this morning at 630, having been intubated on the floor by anesthesia. In the ICU, the patient had an episode of pulseless electrical activity, and asystole, and received 2 rounds of epinephrine, a dose of atropine, and some sodium bicarbonate. I came into the intensive care unit this morning, early, to place a left internal jugular triple-lumen catheter, and a right femoral arterial line. Currently, the patient is on volume assist-control, rate 16, tidal volume 400, FiO2 50%, PEEP of 5. The most recent blood gases show pO2 of 75, pCO2 49, pH is 7.44. Arterial blood gases shortly after intubation showed a pO2 of 268, pCO2 of 38, and a pH of 7.25. The patient is currently on norepinephrine at 1.4 mcg/min, and saline at 50 cc an hour. Current labs include a white count 13.8, hemoglobin 9.5, hematocrit 31, and a platelet count of 257,000. PT was 12.9 with an INR of 1.2. Sodium 135, potassium 4.9, chlorides 111, CO2 19, anion gap 5, BUN 62, creatinine 2.76. The patient's AST is 468. ALT is 286. Albumin is 2.1. Urine, is suspicious for possible infection. Brain CT Today, Shows No Acute Intracranial Process. Chest x-ray shows bilateral patchy airspace disease, right greater than left. Progress note dated August 24, 2023. The patient is seen today in the intensive care unit, room 255. The patient remains on the mechanical ventilator. Current settings include volume assist- control, rate 16, tidal volume 400, FiO2 50%, PEEP of 5. The tidal volume will be dropped down to 350, and the FiO2 will be dropped down to 40%, current blood gases show pO2 132, pCO2 34, pH is 7.37. The patient continues on 0.9 at 50 cc an hour, propofol at 20 mcg/kg/min, and vital 1.2 at 10 cc an hour, with a goal of 48. The patient is discovered to have gram-negative bacilli in the urine. She continues on Zosyn. White count 9, hemoglobin 9.6, hematocrit 30.1, platelet count 242,000. Sodium 138, potassium 4.7, chloride 113, CO2 18, BUN 63, and creatinine 2.65. Anion gap is 7. The patient's AST is 199, ALT is 235. Troponin is 0.565. Albumin is 2.0. The gram-negative bacilli in the urine was discovered to be Escherichia coli. Chest x-ray shows an endotracheal tube that is too low in the trachea, and should be pulled back. In addition, there is evidence of underlying vascular congestion, and/or infiltrates. Progress note dated August 25, 2023. 57-year-old female seen again in room 255. The patient remains on mechanical ventilator. She is on volume assist-control, rate 16, tidal volume 350, FiO2 40%, PEEP of 5. Blood gases show a pO2 of 95, pCO2 of 39, pH is 7.31. The patient is getting propofol 35 mcg/kg/min, saline at 50 cc an hour, and dopamine at 2.5 mcg/kg/min. The patient continues on Zosyn for Escherichia coli. The patient did develop some bradycardia, overnight, which required her to be on do pamine. We are going to order some Dopplers of the lower extremities. In addition, we will do a daily interruption of sedation, and a spontaneous breathing trial. Count is 10.5, hemoglobin 10.3, hematocrit 32.7, platelet count 314,000. Sodium 140, potassium 4.8, chlorides 113, CO2 18, BUN 57, cr eatinine 2.49. Glucose is 142. Magnesium is 2.1, calcium is 7.0. The patient's urine specimen from August 21, revealed Escherichia coli. Dopplers of the lower extremities were negative. Chest x-ray shows some patchy bilateral infiltrates, more left-sided than right-sided. On today's evaluation of 08/26/2023, the patient is being seen for a follow-up. The patient is post cardiopulmonary arrest that occurred on 08/23/2023 and the patient return of spontaneous circulation. Subsequently, the patient was extubated on 08/25/2023. The patient is currently on 4 L of oxygen by nasal cannula. The patient remains encephalopathic. At times, restless in bed and somewhat agitated. Based on that, made recommendations to start the patient on Precedex at the low-dose to control her restlessness and agitation. She is also noted to have a right ankle fracture and a chronic nonhealing heel ulcer, [place]. She was also found to have an E. coli in her urine possibly underlying urine tract infection on 08/22/2023. On today's evaluation, the patient is on 40s of oxygen by nasal cannula. Chest x-ray showing cardiomegaly and the patient has a left subclavian triple-lumen catheter in place. Hemodynamically stable on no pressors. WBC count of 8.6 with a hemoglobin 8.5 and a platelet count of 217. BUN is 51 with a creatinine of 2.28 and a sodium level is at 141 and a bicarb level is at 17. The patient is moving all 4 extremities without any limitation. The patient is currently afebrile. Nephrology is on the case regarding MARYLOU which is probably secondary to ATN and has creatinine is being monitored. Fluid balance over the past 24 hours has been 250 cc positive and the patient shows no signs of any significant fluid overload. The patient is currently on IV Zosyn regarding the possibility of an aspiration/E. coli urinary tract infection and is stage III right heel wound. She remains on bronchodilators. She is on no pressors for now. No other significant events overnight. As mentioned, she was extubated yesterday and the chest x-ray shows distal stable left-sided pleural effusion. The echocardiogram that was done on 08/20/2023 showed a preserved left ventricular ejection fraction, no significant valvular abnormalities. The patient also had Doppler of the lower extremity on 08/25/2023 that revealed no evidence of any DVT. There was a prominent lymph node in the right groin measuring 2.6 cm in size. The patient did have a catheter in her right IJ at the time of admission that was removed and the cultures came back positive for corynebacterium. On today's evaluation of 08/27/2023, the patient is being seen for a follow-up. Patient is postcardiac arrest and the patient is having some signs of anoxic encephalopathy. She was restless and confused and somewhat agitated. Based on that, the patient was started on Precedex yesterday and Precedex is running at 0.4 mcg/kg/h. No significant agitation at this point in time. She seems to be calm and comfortable. She follows occasional simple commands. No agitation. No focal neurological deficits. She is currently on 2 L of oxygen nasal cannula and she is also on lactated Ringer at rate of 50 cc an hour. Urine output is in order of 30 cc an hour. Overall fluid balance has been +700 cc over the past 24 hours. The blood work shows a WC count of 8.2 with a hemoglobin 8.6 and a platelet count of 200, BUN is at 48 with a creatinine of 2.22 and a sodium level of 141. The serum bicarb level is at 18. A repeat limited echocardiogram was done yesterday and the patient showed improvement and in the LV function and the patient ejection fraction is in order of 55 to 60% without any significant segmental wall motion abnormalities. The patient is afebrile. The patient is hemodynamically stable at this point in time. Nephrology on the case regarding her chronic renal failure. On today's evaluation of 08/28/2023, the patient continues to require Precedex for increased agitation and restlessness. While off sedation, thrashes around. Currently she is calm and comfortable being on Precedex at 0.7 mcg/kg/h. She is on 3 L of oxygen by nasal cannula. No signs of any respiratory distress. No fo tete neurological deficits. She continues to complain of chest wall soreness and pain related to CPR and based on that the patient was given IV Tylenol and she is also [place] for pain control. WBC count is 7.1 with a hemoglobin of 8.7 and a platelet count of 214. BUN is at 50 with a creatinine of 2.45 and a sodium level of 140 with a potassium level of 5.1. She is afebrile. She is hemodynamically stable at this point in time. 08/30/2023, the patient is being seen for a follow-up. Remains encephalopathic, speech at times is garbled. Follows commands. She is not consistently having a conversation. A repeat CAT scan of the brain was done on 08/28/2023 and the findings showed no acute abnormalities. EEG was also done on 08/29/2023 and it showed abnormal slowing and mild to moderate degree of encephalopathy with generalized cerebral dysfunction. The patient is clinically stable and hemod ynamically stable. No respiratory distress. Adequate swallow without any risk of aspiration. Chest x-ray from today showing increased incisional markings bilaterally, could be a component of fluid overload. Meanwhile, the patient is on no pressors. She is afebrile. She is on oxygen at 3 L. Blood work from today shows a sodium level of 142, BUN of 56 with a creatinine of 2.98 and a creatinine remained stable with a potassium level of 5 and a serum bicarb of 18. Serum cortisol 15. TSH is at 2.5. No hypothermia. The [facility], she remains on aspirin 81 mg p.o. daily combination with Plavix. She is on IV iron. She is covered empirically with IV Zosyn. She is on Seroquel 150 mg p.o. twice a day. Agitation is adequately controlled. 08/31/2023, the patient continues to have episodes of agitation. Overnight, the patient was quite restless and agitated. She had to be placed on Precedex. Initially at 0.8 mcg later on dropped down to 0.4 mcg and she is quite sedated at this point in time and the medication will be discontinued patient remains on 3 L of oxygen by nasal cannula. Moving all 4 extremities. Arousable and seems to be much comfortable this morning. Fluid balance is -1.9 L over the past 24 hours and the patient has responded to diuretics. Electrolytes are all stable with a BUN of 56 and a creatinine of 2.6 and a sodium is at 144, WBC count is at 7.3 with a hemoglobin 9.1. Remains on Seroquel 150 mg p.o. twice daily. Remains on IV Lasix 40 mg every 12 hours with a negative fluid balance. Remains on aspirin and Plavix. Rest of the medications are essentially unchanged for now. IV fluids are currently at KVO. 09/01/2023, the patient is much more comfortable. Awake and alert and communicating on low-dose Precedex at 0.2 mcg/kg/h. She is also on Seroquel. No significant agitation. Communicating moving all 4 extremities other than limitation. She is on 3 L of oxygen by nasal cannula. No respiratory distress. White cell count of 9.8 with a hemoglobin 8.6, BUN is 55 with a creatinine of 2.7. Fluid balance over the past 24 hours is -3 L. She is being diuresed with IV Lasix and she is currently on 40 mg IV every 12 hours. No focal neurological deficits. Will continue 24 hours. Objective - Vital Signs Vital signs: Vital Signs Temp 97.0 F L 09/01/23 04:00 Pulse 72 09/01/23 07:00 Resp 16 09/01/23 07:00 BP 132/76 09/01/23 07:00 Pulse Ox 98 09/01/23 08:46 FiO2 2 09/01/23 04:00 Intake & Output 08/31/23 09/01/23 09/01/23 18:59 06:59 18:59 Intake Total 287.547 205.462 5 Output Total 1450 2105 200 Balance -1162.453 -1899.538 -195 Intake: IV 260 135 5 Normal Saline Carrier @ 60 35 5 5mL/hr Piperacillin-Tazobactam 3 100 100 .375 gm In Sodium Chloride 0.9% 100 ml @ 25 mls/hr IVPB Q12HR RYLIE Rx #:[id number] Sodium Ferric Gluconat- 100 Sucrose 125 mg In Sodium Chloride 0.9% 100 ml @ 100 mls/hr IVPB DAILY RYLIE Rx#:[id number] Intake, IV Titration 27.547 70.462 0 Amount Dexmedetomidine/0.9% NaCl 27.547 70.462 0 (Pmx) 400 mcg In Empty Bag 1 bag @ 0.2 MCG/KG/HR 3.94 mls/hr IV .Q24H RYLIE Rx#:[id number] Output: Urine 1450 2105 200 Other: Voiding Method Indwelling Catheter Indwelling Catheter ABP, PAP, CO, CI - Last Documented Arterial Blood Pressure 125/73 - Exam No acute distress, calm and comfortable on 3 L, remains encephalopathic, currently on Precedex which is being gradually weaned off. Head exam was generally normal. There was no scleral icterus or corneal arcus. Mucous membranes were moist. HEENT examination is grossly unremarkable. Neck supple. Full range of motion. No adenopathy thyromegaly or neck vein distention. Cardiovascular examination reveals regular rhythm rate. S1-S2 normal. No S3 or S4. No discernible murmur noted. Heart sounds are distant. Lungs reveal scattered bilateral rhonchi. No wheezes or crackles. Breath sounds equal bilaterally. Abdomen soft without bowel sounds. Extremities are intact. No cyanosis clubbing or edema. The patient has a soft splint in her right lower extremity. Pulses are diminished at the present in all 4 extremities. Skin is without rash or lesion. Stage III nonhealing heel ulcer in the right lower extremity. Neurologic examination No focal neurological deficits. Pupils are equal reactive to light. There is baseline encephalopathy and occasional agitation. - Labs CBC & Chem 7: 09/01/23 02:51 09/01/23 02:47 Labs: Abnormal Lab Results - Last 24 Hours (Table) 08/31/23 08/31/23 08/31/23 Range/Units 09:12 09:12 11:39 RBC 3.18 L (3.80-5.40) m/uL Hgb 9.1 L (11.4-16.0) gm/dL Hct 29.2 L (34.0-46.0) % RDW 18.1 H (11.5-15.5) % Lymphocytes # 0.8 L (1.0-4.8) k/uL Chloride 116 H (98-107) mmol/L Carbon Dioxide 18 L (22-30) mmol/L BUN 56 H (7-17) mg/dL Creatinine 2.64 H (0.52-1.04) mg/dL Glucose 108 H (74-99) mg/dL POC Glucose (mg/dL) 143 H (70-110) mg/dL Calcium (8.4-10.2) mg/dL 08/31/23 08/31/23 09/01/23 Range/Units 16:48 20:24 02:47 RBC (3.80-5.40) m/uL Hgb (11.4-16.0) gm/dL Hct (34.0-46.0) % RDW (11.5-15.5) % Lymphocytes # (1.0-4.8) k/uL Chloride 113 H (98-107) mmol/L Carbon Dioxide (22-30) mmol/L BUN 55 H (7-17) mg/dL Creatinine 2.71 H (0.52-1.04) mg/dL Glucose 114 H (74-99) mg/dL POC Glucose (mg/dL) 205 H 199 H (70-110) mg/dL Calcium 8.0 L (8.4-10.2) mg/dL 09/01/23 09/01/23 Range/Units 02:51 06:27 RBC 2.86 L (3.80-5.40) m/uL Hgb 8.6 L (11.4-16.0) gm/dL Hct 26.7 L (34.0-46.0) % RDW 18.9 H (11.5-15.5) % Lymphocytes # 0.8 L (1.0-4.8) k/uL Chloride (98-107) mmol/L Carbon Dioxide (22-30) mmol/L BUN (7-17) mg/dL Creatinine (0.52-1.04) mg/dL Glucose (74-99) mg/dL POC Glucose (mg/dL) 117 H (70-110) mg/dL Calcium (8.4-10.2) mg/dL Assessment and Plan Plan: Cardiopulmonary arrest, x 2, with cardiopulmonary resuscitation, and return of spontaneous circulation on 08/23/23, echocardiogram shows a preserved LV function. No significant valvular abnormalities at this point in time. Cardiac rhythm is sinus. Actively patient remains on encephalopathy which is a postcardiac arrest encephalopathy. Currently on Seroquel. Requiring on and off Precedex. Acute hypoxic respiratory failure, postcardiac arrest, intubated and subsequently extubated on 08/25/2023 currently on 3 L of O2 nasal cannula, currently being with IV Lasix and the patient is negative fluid balance S/P intubation, and mechanical ventilation, secondary to cardiopulmonary arrest, August 23, 2023. She was extubated on 08/25/23 Encephalopathy with possibility of an underlying hypoxic encephalopathy postcardiac arrest, CAT scan of the brain that was done showed no evidence of any acute abnormalities. The patient is currently Precedex as the patient was showing signs of restlessness and agitation. She seems to be calm and comfortable and there is no focal neurological deficit on today's evaluation. She is moving all 4 extremities without any limitation. She is still requiring Precedex for increased agitation and restlessness/delirium/hypoxic encephalopathy. CAT scan of the brain from 08/28/2023 was negative. EEG showed mild to moderate encephalopathy. History of congestive heart failure. Echocardiogram from this current admission shows a preserved LV function.. Coronary artery disease cardiomyopathy and the patient is post non-ST segment elevation myocardial infarction. Cardiac catheterization was done on 06/24/2023 and the patient had successful stenting of the proximal RCA with reduction of the stenosis from 70% to 0%. Troponin peaked at 1. Stage III chronic kidney disease, creatinine is stable for now, the patient required hemodialysis during earlier hospitalization and the last hemodialysis was on 07/02/2023. The patient has not received hemodialysis since then. Dialysis catheter was removed and the catheter was positive for corynebacterium. Right heel pressure ulcer, stage III Subacute fracture of the medial and lateral malleolus, she has a soft cast in the right lower extremity History of hypertension. History of hyperlipidemia. History of type 2 diabetes mellitus. History of severe pulmonary hypertension. History of COPD. History of peripheral neuropathy. Chest wall pain related to CPR Plan Wean off Precedex, monitor mental status Will hopefully discontinue Precedex today Seroquel 150 mg p.o. twice a day The patient is currently hemodynamically stable on no pressors. Cardiac rhythm is sinus. Will obtain repeated limited echocardiogram to reevaluate LV function. The echocardiogram shows a preserved LV function. Continue IV Lasix Utilize [place] for pain control Monitor renal function , currently stable creatinine Able to swallow without any major difficulties continue aspirin and Plavix Continue IV Zosyn No pressors for now Continue Lipitor 40 mg p.o. daily Continue Norvasc 5 mg p.o. daily Continue Imdur 30 mg p.o. daily Heparin subcu for DVT prophylaxis Neurology consultation is appreciated Will continue to follow The patient be kept in ICU for now.
[2023-09-01 11:44] LABS: Glucose,Whole Blood 244 mg/dL (70-110)
--- NOTE | 2023-09-01 12:40 | P.PN ---
Subjective Progress Note Date: 09/01/23 57-year-old female came in with complaints of shortness of breath and orthopnea found to be in congestive heart failure exacerbation patient has congestive heart failure with reduced ejection fraction in the past patient has increasing pedal edema. Patient also has an ulcer in the right foot stage III-IV which appeared to be infected we will consult wound care and infectious disease. Patient was on hemodialysis during last hospitalization her creatinine presently is 1.5 which is significantly improved patient potassium is 5.5, patient is on Entresto and Aldactone Aldactone will be held Entresto will be continued since she is receiving IV Lasix and expecting her potassium to improve if it does not improve or get worse then Entresto need to be discontinued as well. Patient has hypervolemic hyponatremia and hyperglycemia. 08/21/2023 Was evaluated today on the medical floor. Patient was continued on IV Lasix overnight however she was no longer reporting any shortness of breath and her lower extremity edema has improved. She was taken off of the Lasix at this time due to increased creatinine up to 2.31 additionally potassium remains elevated at 5.7. Echocardiogram comes back showing an improved ejection fraction of 60 to 65% because of this and also the hyperkalemia patient will not be continued on entresto. Patient was evaluated by infectious disease who felt like that heel ulcer on the right side was more likely a pressure injury stage III and is recommending local wound care to continue with Aquacel. Patient is reporting significant pain to the right foot and feels like it is fractured. Upon review of the patient's chart she did have a x-ray completed of this 12 days ago ordered by her professor of literacy Dr. Mayen. Ankle x-ray did review a mildly displaced acute distal fibular fracture. Repeat x-ray of the foot and ankle completed today does reveal a subacute fractures of the medial and lateral malleolus. The lateral malleolus fracture was seen on the patient's prior exam the medial malleolus fracture may be new in the interval and this would be considered an unstable ankle fracture. There is interval 6 mm displacement of the lateral malleolus. There is a deep soft tissue ulcer at the plantar heel with no clear radiographic findings of a contagious osteomyelitis at this time. Orthooedics was consulted for this. 08/22/2023 Patient evaluated in follow-up today resting in bed. She was taken off of the Lasix remains off at this time. Bladder scan was requested and not done yesterday to rule out urinary retention, creatinine today is increased up to 2.56. Bladder scan was done require urinary straight catheterization of 550 mL taken out. Urinalysis was sent which is significantly abnormal. Patient is also noted to have multiple genital lesions which appear wartlike she admits to not having any routine gynecological screenings for many years. She is not having any vaginal bleeding or discharge. Renal ultrasound has been ordered to rule out any obstructive uropathy. 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 Patient upon arrival to the intensive care unit had another episode of cardiac arrest patient had bradycardia while on pressors in the ICU patient was intubated following the first cardiac arrest and is currently on the mechanical ventilator 50% FiO2. Chest x-ray showing similar interstitial and patchy component airspace disease right greater than left. There is a possible trace left pleural effusion. A brain CT which shows no acute intracranial process. Blood work today shows a white blood cell count of 13.8, hemoglobin 9.5, sodium level of 135, BUN of 62, creatinine of 2.76. AST ALT and alk phosphatase are significantly elevated consistent with a shock liver. TSH 3.310. Urinalysis is abnormal. Her urine culture is showing gram-negative bacilli patient is covered for the urinary tract infection as well as aspiration with IV Zosyn being managed by infectious disease. Patient is currently sedated with propofol and did require vasopressor support with Levophed which has been weaned at this time. Will discontinue the gabapentin patient is continued on aspirin Plavix and statin has been placed on hold. There is concern for possible arrhythmia precipitating the asystole additionally we need to rule out embolism and a D-dimer has been ordered. 08/24/2023 Patient is seen in follow-up today continues in the ICU on mechanical ventilation. FiO2 is 50% although titrating and was just placed at 40% with a PEEP of 5. Chest x-ray today shows that the ET tube is 7 mm from the sonam suggesting a pulled back 2 cm and reassess and also suspected underlying vascular congestion. Neuro is following and per nursing staff patient is following some simple commands and undergoing sedation holidays. Patient noted to have reduced EF of 30 to 35% and cardiology had been following. Will reconsult and appreciate input and recommendations. patient did have dialysis catheter removed and sent for cultures which are pending. Infectious disease following and patient is maintained on antibiotic. D-dimer is elevated above 16 and will attempt to obtain a VQ scan.57-year-old female came in with complaints of shortness of breath and orthopnea found to be in congestive heart failure exacerbation patient has congestive heart failure with reduced ejection fraction in the past patient has increasing pedal edema. Patient also has an ulcer in the right foot stage III-IV which appeared to be infected we will consult wound care and infectious disease. Patient was on hemodialysis during last hospitalization her creatinine presently is 1.5 which is significantly improved patient potassium is 5.5, patient is on Entresto and Aldactone Aldactone will be held Entresto will be continued since she is receiving IV Lasix and expecting her potassium to improve if it does not improve or get worse then Entresto need to be discontinued as well. Patient has hypervolemic hyponatremia and hyperglycemia. 08/21/2023 Was evaluated today on the medical floor. Patient was continued on IV Lasix overnight however she was no longer reporting any shortness of breath and her lower extremity edema has improved. She was taken off of the Lasix at this time due to increased creatinine up to 2.31 additionally potassium remains elevated at 5.7. Echocardiogram comes back showing an improved ejection fraction of 60 to 65% because of this and also the hyperkalemia patient will not be continued on entresto. Patient was evaluated by infectious disease who felt like that heel ulcer on the right side was more likely a pressure injury stage III and is recommending local wound care to continue with Aquacel. Patient is reporting significant pain to the right foot and feels like it is fractured. Upon review of the patient's chart she did have a x-ray completed of this 12 days ago ordered by her professor of literacy Dr. Mayen. Ankle x-ray did review a mildly displaced acute distal fibular fracture. Repeat x-ray of the foot and ankle completed today does reveal a subacute fractures of the medial and lateral malleolus. The lateral malleolus fracture was seen on the patient's prior exam the medial malleolus fracture may be new in the interval and this would be considered an unstable ankle fracture. There is interval 6 mm displacement of the lateral malleolus. There is a deep soft tissue ulcer at the plantar heel with no clear radiographic findings of a contagious osteomyelitis at this time. Orthooedics was consulted for this. 08/22/2023 Patient evaluated in follow-up today resting in bed. She was taken off of the Lasix remains off at this time. Bladder scan was requested and not done yesterday to rule out urinary retention, creatinine today is increased up to 2.56. Bladder scan was done require urinary straight catheterization of 550 mL taken out. Urinalysis was sent which is significantly abnormal. Patient is also noted to have multiple genital lesions which appear wartlike she admits to not having any routine gynecological screenings for many years. She is not having any vaginal bleeding or discharge. Renal ultrasound has been ordered to rule out any obstructive uropathy. 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 Patient upon arrival to the intensive care unit had another episode of cardiac arrest patient had bradycardia while on pressors in the ICU patient was intubated following the first cardiac arrest and is currently on the mechanical ventilator 50% FiO2. Chest x-ray showing similar interstitial and patchy component airspace disease right greater than left. There is a possible trace left pleural effusion. A brain CT which shows no acute intracranial process. Blood work today shows a white blood cell count of 13.8, hemoglobin 9.5, sodium level of 135, BUN of 62, creatinine of 2.76. AST ALT and alk phosphatase are significantly elevated consistent with a shock liver. TSH 3.310. Urinalysis is abnormal. Her urine culture is showing gram-negative bacilli patient is covered for the urinary tract infection as well as aspiration with IV Zosyn being managed by infectious disease. Patient is currently sedated with propofol and did require vasopressor support with Levophed which has been weaned at this time. Will discontinue the gabapentin patient is continued on aspirin Plavix and statin has been placed on hold. There is concern for possible arrhythmia precipitating the asystole additionally we need to rule out embolism and a D-dimer has been ordered. 08/24/2023 Patient is seen in follow-up today continues in the ICU on mechanical ventilat ion. FiO2 is 50% although titrating and was just placed at 40% with a PEEP of 5. Chest x-ray today shows that the ET tube is 7 mm from the sonam suggesting a pulled back 2 cm and reassess and also suspected underlying vascular congestion. Neuro is following and per nursing staff patient is following some simple commands and undergoing sedation holidays. Patient noted to have reduced EF of 30 to 35% and cardiology had been following. Will reconsult and appreciate input and recommendations. patient did have dialysis catheter removed and sent for cultures which are pending. Infectious disease following and patient is maintained on antibiotic. D-dimer is elevated above 16 and will attempt to obtain a VQ scan. 08/25/23 : Patient seen and evaluated at bedside, patient extubated around noon, transition to 5 L of oxygen to nasal cannula. Family at bedside, blood work reviewed hemoglobin 10.3, serum chemistry reviewed sodium 140 potassium 4.8 BUN 57 creatinine 2.49 calcium of 7. 08/26/23 : Patient seen and evaluated at bedside, patient remains in medical ICU, does complain of chest pain from CPR. Patient has been weaned off dopamine, cardiology following, blood work reviewed, hemoglobin 8.5 platelet count of 217, serum chemistry shows sodium 141 BUN 51 creatinine 2.28. Followed up by nephrology as well MARYLOU secondary to ATN continue to monitor intake and output 08/27/23: Patient seen and evaluated bedside, on evaluation patient is disoriented, patient is drowsy however likely having acute delirium. Seen by cardiology echocardiogram shows preserved ejection fraction continue with current medical management, patient on Precedex for acute delirium, continue to remain on oxygen supplementation with nasal cannula blood work reviewed CBC showed WBC 8.2 hemoglobin 8.6 serum chemistry showed creatinine of 2.22. Patient remains delirious, daughter at bedside all questions answered 08/28/2023 Patient was agitated earlier requiring Seroquel and Placed on Precedex because s he was has risk to self and others Currently when I saw the patient she was sleepy However she is not tachypneic show does not look in pain. Vitals are stable She is saturating 91% on 2 L oxygen via nasal cannula She remains on Zosyn for pneumonia and UTI She is on normal saline at 50 mL/h 08/29/2023 Patient remains sleepy, she still has some encephalopathy But she is on Precedex which will be tapered off by pulmonary team today to assess her mentation as well. Patient has been followed by neurology for suspected anoxic brain injury after her cardiac arrest and return of circulation on 08/22. There is no evidence of seizure-like activity She has catheter tip infection with culture growing Corynebacterium species and she is currently covered with Zosyn which also help for her right heel pressure ulcer and aspiration pneumonia and UTI. Cardiology evaluated the patient and there is no clear evidence for her cardiac arrest although she has history of coronary artery disease and previous stents. Currently with no chest pain. She remains on aspirin and Plavix, gentle hydration, IV steroids 08/30/2023 Today her sedation remains off however patient mentation not completely resolved, it is somewhat better as she was more sleepy yesterday She is eating okay, swallowing is fine She was started on IV Lasix twice daily per bookkeeping assistant. She has good urine output and normal send discontinued She is hemodynamically stable and oxygenation is acceptable Remains on aspirin and Plavix and Seroquel 08/31/23: Seen and evaluated at bedside, patient remains on 4 L of oxygen, blood work reviewed, WBC 7.3 hemoglobin 9.1 platelet count of 203 glucose 119. CBC reviewed showed WBC 7.3 hemoglobin 9.1 platelet count of 203.. Neurology consulted and following. Patient is awake and alert able to answer questions and follow commands sister at bedside all questions answered 09/01/23: Seen and evaluated at bedside, patient vitals reviewed, serum chemistry reviewed sodium 145 potassium 4.6 creatinine 2.71, CBC reviewed patient remains on IV Zosyn , appreciate input from nephrology continue patient on IV Lasix, delirium persist PHYSICAL EXAMINATION: GENERAL: The patient is on nasal cannula, alert to person however does get confused during conversation, patient is disoriented needing a second HEENT: Pupils are round and equally reacting to light. EOMI. CARDIOVASCULAR: S1 and S2 present. No murmurs, rubs, or gallops. PULMONARY: Decreased breath sounds bilaterally ABDOMEN: Soft, nontender, nondistended, normoactive bowel sounds. No palpable organomegaly. MUSCULOSKELETAL: No joint swelling or deformity. EXTREMITIES: No cyanosis, clubbing, bilateral pedal edema NEUROLOGICAL: pupils reactive unable to assess sedated SKIN: Patient has right plantar surface ulcer on the posterior foot stage III-IV with areas of necrotic tissue Assessment and plan * Asystole/cardiopulmonary arrest x 2 with CPR/ROSC * Respiratory failure requiring intubation s/p extubation 08/25/2023 * Acute metabolic encephalopathy * Congestive heart failure with systolic dysfunction acute on chronic exacerbation * Ischemic cardiomyopathy with improved EF * Acute kidney injury secondary to ATN on chronic kidney disease stage III * Urinary tract infection with E. coli * Subacute fracture of the medial and lateral malleolus, orthopedics following * Right heel stage III pressure injury continue local wound care with aquacel ID following. * Genital lesions, will need director of community education follow up outpatient for routine screenings * Hypertension * Hyperlipidemia * Type 2 diabetes mellitus uncontrolled hgb a1c 12.1 * Severe pulmonary hypertension * COPD without any acute exacerbation * Peripheral neuropathy * Patient continues to remain critically ill, was intubated s/p extubation, weaned off to nasal cannula 4 L * In regards to acute encephalopathy likely post ICU delirium, neurology was consulted continue with frequent reorientation, patient is off Precedex, CT head negative for acute intracranial process EEG is abnormal with background slowing encephalopathy noted, MRI brain requested by neurology, continue with status secondary to disorientation * In regards to urinary tract infection, chronic nonhealing wound and right heel, urine cultures grew E. coli. Patient treated with IV antibiotic received IV Zosyn * In regards to aspiration pneumonia,, continue patient on IV Zosyn managed by infectious disease * In regards to cardiomyopathy patient weaned off pressor support, dopamine weaned off as well, continue current medications including aspirin, Plavix, cardiology following continue IV Lasix nephrology following * In regards to suspicion for pulm embolism venous ultrasound lower extremity ordered no evidence of DVT noted on subcu heparin for DVT prophylaxis * In regards to diabetes mellitus continue patient on Accu-Cheks, continue correctional insulin Objective - Vital Signs Vital signs: Vital Signs Temp 97.0 F L 09/01/23 04:00 Pulse 72 09/01/23 07:00 Resp 16 09/01/23 07:00 BP 132/76 09/01/23 07:00 Pulse Ox 98 09/01/23 08:46 FiO2 2 09/01/23 04:00 Intake & Output 08/31/23 09/01/23 09/01/23 18:59 06:59 18:59 Intake Total 287.547 205.462 5 Output Total 1450 2105 200 Balance -1162.453 -1899.538 -195 Intake: IV 260 135 5 Normal Saline Carrier @ 60 35 5 5mL/hr Piperacillin-Tazobactam 3 100 100 .375 gm In Sodium Chloride 0.9% 100 ml @ 25 mls/hr IVPB Q12HR [facility] Rx #:[id number] Sodium Ferric Gluconat- 100 Sucrose 125 mg In Sodium Chloride 0.9% 100 ml @ 100 mls/hr IVPB DAILY [facility] Rx#:[id number] Intake, IV Titration 27.547 70.462 0 Amount Dexmedetomidine/0.9% NaCl 27.547 70.462 0 (Pmx) 400 mcg In Empty Bag 1 bag @ 0.2 MCG/KG/HR 3.94 mls/hr IV .Q24H [facility] Rx#:[id number] Output: Urine 1450 2105 200 Other: Voiding Method Indwelling Catheter Indwelling Catheter ABP, PAP, CO, CI - Last Documented Arterial Blood Pressure 125/73 - Labs CBC & Chem 7: 09/01/23 02:51 09/01/23 02:47 Labs: Abnormal Lab Results - Last 24 Hours (Table) 08/31/23 08/31/23 08/31/23 Range/Units 11:39 16:48 20:24 RBC (3.80-5.40) m/uL Hgb (11.4-16.0) gm/dL Hct (34.0-46.0) % RDW (11.5-15.5) % Lymphocytes # (1.0-4.8) k/uL Chloride (98-107) mmol/L BUN (7-17) mg/dL Creatinine (0.52-1.04) mg/dL Glucose (74-99) mg/dL POC Glucose (mg/dL) 143 H 205 H 199 H (70-110) mg/dL Calcium (8.4-10.2) mg/dL 09/01/23 09/01/23 09/01/23 Range/Units 02:47 02:51 06:27 RBC 2.86 L (3.80-5.40) m/uL Hgb 8.6 L (11.4-16.0) gm/dL Hct 26.7 L (34.0-46.0) % RDW 18.9 H (11.5-15.5) % Lymphocytes # 0.8 L (1.0-4.8) k/uL Chloride 113 H (98-107) mmol/L BUN 55 H (7-17) mg/dL Creatinine 2.71 H (0.52-1.04) mg/dL Glucose 114 H (74-99) mg/dL POC Glucose (mg/dL) 117 H (70-110) mg/dL Calcium 8.0 L (8.4-10.2) mg/dL
[2023-09-01] MEDS: METOPROLOL TARTRATE 25 MG TAB PO SCH (15:19)
[2023-09-01 17:09] LABS: Glucose,Whole Blood 207 mg/dL (70-110)
[2023-09-01 20:08] LABS: Glucose,Whole Blood 221 mg/dL (70-110)
[2023-09-01] MEDS ORDERED: METOPROLOL TARTRATE 25 MG TAB PO SCH (21:00)
[2023-09-01] MEDS: OLANZapine 10 MG VIAL IM STA (23:32)
[2023-09-02] MEDS: METOPROLOL TARTRATE 12.5 MG TAB PO STA (00:29)
[2023-09-02] MEDS: METOPROLOL TARTRATE 5 MG/5 ML VIAL IVP ONE (00:31)
[2023-09-02 00:37] LABS: Anisocytosis Slight; HCT 28.9 % (34.0-46.0); HGB 8.8 gm/dL (11.4-16.0); Hypochromasia Marked; MCH 28.7 pg (25.0-35.0); MCHC 30.5 g/dL (31.0-37.0); MCV 94.2 fL (80.0-100.0); Macrocytosis Slight; Mean Platelet Volume 9.5; Platelet Count 226 k/uL (150-450); RBC 3.06 m/uL (3.80-5.40); RDW 18.5 % (11.5-15.5); WBC 7.4 k/uL (3.8-10.6)
[2023-09-02 00:52] LABS: African American GFR (CKD) 23 (>60 ml/min/1.73 sqM); Anion Gap 6 mmol/L; Blood Urea Nitrogen 52 mg/dL (7-17); Calcium 8.2 mg/dL (8.4-10.2); Carbon Dioxide 27 mmol/L (22-30); Chloride 110 mmol/L (98-107); Glucose 145 mg/dL (74-99); Magnesium 2.1 mg/dL (1.6-2.3); Non-African American GFR(CKD) 20 (>60 ml/min/1.73 sqM); Potassium 4.7 mmol/L (3.5-5.1); Sodium 143 mmol/L (137-145)
[2023-09-02 06:45] LABS: Glucose,Whole Blood 69 mg/dL (70-110)
[2023-09-02 06:47] LABS: Glucose,Whole Blood 66 mg/dL (70-110)
[2023-09-02 07:33] LABS: Glucose,Whole Blood 75 mg/dL (70-110)
--- NOTE | 2023-09-02 09:50 | P.PN ---
Subjective Patient is seen in follow-up for acute kidney injury. Renal function stable. On IV Lasix. Nonoliguric. Sitter present at bedside. No improvement in mentation. Vital signs are stable. General: Resting in bed. HEENT: On nasal cannula. LUNGS: No audible rhonchi or wheezes. HEART: Rate and Rhythm are regular. ABDOMEN: No distention. EXTREMITITES: 2+ edema. Objective - Vital Signs Vital signs: Vital Signs Temp 97.0 F L 09/02/23 04:00 Pulse 95 09/02/23 07:00 Resp 24 09/02/23 07:00 BP 123/69 09/02/23 07:00 Pulse Ox 93 L 09/02/23 08:31 FiO2 3 09/02/23 04:00 Intake & Output 09/01/23 09/02/23 09/02/23 18:59 06:59 18:59 Intake Total 872.181 360 5 Output Total 1025 945 85 Balance -152.819 -585 -80 Intake: IV 260 160 5 Normal Saline Carrier @ 60 60 5 5mL/hr Piperacillin-Tazobactam 3 100 100 .375 gm In Sodium Chloride 0.9% 100 ml @ 25 mls/hr IVPB Q12HR [facility] Rx #:[id number] Sodium Ferric Gluconat- 100 Sucrose 125 mg In Sodium Chloride 0.9% 100 ml @ 100 mls/hr IVPB DAILY [facility] Rx#:[id number] Intake, IV Titration 12.181 Amount Dexmedetomidine/0.9% NaCl 12.181 (Pmx) 400 mcg In Empty Bag 1 bag @ 0.2 MCG/KG/HR 3.94 mls/hr IV .Q24H [facility] Rx#:[id number] Oral 600 200 Output: Urine 1025 945 85 Other: Voiding Method Indwelling Catheter Indwelling Catheter ABP, PAP, CO, CI - Last Documented Arterial Blood Pressure 125/73 - Labs CBC & Chem 7: 09/02/23 00:08 09/02/23 00:08 Labs: Abnormal Lab Results - Last 24 Hours (Table) 09/01/23 09/01/23 09/01/23 Range/Units 11:42 17:07 20:07 RBC (3.80-5.40) m/uL Hgb (11.4-16.0) gm/dL Hct (34.0-46.0) % MCHC (31.0-37.0) g/dL RDW (11.5-15.5) % Chloride (98-107) mmol/L BUN (7-17) mg/dL Creatinine (0.52-1.04) mg/dL Glucose (74-99) mg/dL POC Glucose (mg/dL) 244 H 207 H 221 H (70-110) mg/dL Calcium (8.4-10.2) mg/dL 09/02/23 09/02/23 09/02/23 Range/Units 00:08 00:08 06:43 RBC 3.06 L (3.80-5.40) m/uL Hgb 8.8 L (11.4-16.0) gm/dL Hct 28.9 L (34.0-46.0) % MCHC 30.5 L (31.0-37.0) g/dL RDW 18.5 H (11.5-15.5) % Chloride 110 H (98-107) mmol/L BUN 52 H (7-17) mg/dL Creatinine 2.55 H (0.52-1.04) mg/dL Glucose 145 H (74-99) mg/dL POC Glucose (mg/dL) 69 L (70-110) mg/dL Calcium 8.2 L (8.4-10.2) mg/dL 09/02/23 Range/Units 06:46 RBC (3.80-5.40) m/uL Hgb (11.4-16.0) gm/dL Hct (34.0-46.0) % MCHC (31.0-37.0) g/dL RDW (11.5-15.5) % Chloride (98-107) mmol/L BUN (7-17) mg/dL Creatinine (0.52-1.04) mg/dL Glucose (74-99) mg/dL POC Glucose (mg/dL) 66 L (70-110) mg/dL Calcium (8.4-10.2) mg/dL Assessment and Plan Plan: Assessment: 1. Acute kidney injury on chronic kidney disease secondary to ATN secondary to cardiorenal syndrome and cardiac arrest. Creatinine 1.5 admission and peaked at 2.98 this admission - 2.55 today. Patient was on hemodialysis in the past with last treatment being July 02, 2023. 2. Volume overload. Improving with diuresis. 3. Acute on chronic diastolic CHF. 4. Diabetes mellitus. 5. Right foot wound. 6. Coronary disease with cardiac stenting. 7. Status post PEA arrest with concern for anoxic encephalopathy. 8. Septic shock with urine culture positive for E. coli and catheter tip culture positive for Corynebacterium. On antibiotics. Off vasopressors. 9. Metabolic acidosis secondary to acute kidney injury and IV fluids. On oral bicarb. Better. 10. Anemia. Iron deficiency noted. Receiving IV iron. On Aranesp. Plan: Maintain IV Lasix. Encouraged oral intake. Avoid nephrotoxins. Continue to monitor renal function and urine output.
[2023-09-02] MEDS: METOPROLOL TARTRATE 12.5 MG TAB PO SCH (10:53)
[2023-09-02] MEDS: LORazepam 1 MG/0.5 ML VIAL IV PRN (10:55)
[2023-09-02 12:34] LABS: Glucose,Whole Blood 79 mg/dL (70-110)
--- NOTE | 2023-09-02 13:03 | P.PN ---
Subjective Progress Note Date: 09/02/23 Principal diagnosis: Cardiopulmonary arrest x 2 This is a 57-year-old female who was admitted back on August 18, for a right heel wound. Early this morning, the patient had a cardiopulmonary arrest. The patient apparently was initially found to be bradycardic, and then had asystole. She received 3 rounds of epinephrine. She arrived to the intensive care unit this morning at 630, having been intubated on the floor by anesthesia. In the ICU, the patient had an episode of pulseless electrical activity, and asystole, and received 2 rounds of epinephrine, a dose of atropine, and some sodium bicarbonate. I came into the intensive care unit this morning, early, to place a left internal jugular triple-lumen catheter, and a right femoral arterial line. Currently, the patient is on volume assist-control, rate 16, tidal volume 400, FiO2 50%, PEEP of 5. The most recent blood gases show pO2 of 75, pCO2 49, pH is 7.44. Arterial blood gases shortly after intubation showed a pO2 of 268, pCO2 of 38, and a pH of 7.25. The patient is currently on norepinephrine at 1.4 mcg/min, and saline at 50 cc an hour. Current labs include a white count 13.8, hemoglobin 9.5, hematocrit 31, and a platelet count of 257,000. PT was 12.9 with an INR of 1.2. Sodium 135, potassium 4.9, chlorides 111, CO2 19, anion gap 5, BUN 62, creatinine 2.76. The patient's AST is 468. ALT is 286. Albumin is 2.1. Urine, is suspicious for possible infection. Brain CT Today, Shows No Acute Intracranial Process. Chest x-ray shows bilateral patchy airspace disease, right greater than left. 08/30/2023, the patient is being seen for a follow-up. Remains encephalopathic, speech at times is garbled. Follows commands. She is not consistently having a conversation. A repeat CAT scan of the brain was done on 08/28/2023 and the findings showed no acute abnormalities. EEG was also done on 08/29/2023 and it showed abnormal slowing and mild to moderate degree of encephalopathy with generalized cerebral dysfunction. The patient is clinically stable and hemodynamically stable. No respiratory distress. Adequate swallow without any risk of aspiration. Chest x-ray from today showing increased incisional markings bilaterally, could be a component of fluid overload. Meanwhile, the patient is on no pressors. She is afebrile. She is on oxygen at 3 L. Blood work from today shows a sodium level of 142, BUN of 56 with a creatinine of 2.98 and a creatinine remained stable with a potassium level of 5 and a serum bicarb of 18. Serum cortisol 15. TSH is at 2.5. No hypothermia. The [facility], she remains on aspirin 81 mg p.o. daily combination with Plavix. She is on IV iron. She is covered empirically with IV Zosyn. She is on Seroquel 150 mg p.o. twice a day. Agitation is adequately controlled. 08/31/2023, the patient continues to have episodes of agitation. Overnight, the patient was quite restless and agitated. She had to be placed on Precedex. In itially at 0.8 mcg later on dropped down to 0.4 mcg and she is quite sedated at this point in time and the medication will be discontinued patient remains on 3 L of oxygen by nasal cannula. Moving all 4 extremities. Arousable and seems to be much comfortable this morning. Fluid balance is -1.9 L over the past 24 hours and the patient has responded to diuretics. Electrolytes are all stable with a BUN of 56 and a creatinine of 2.6 and a sodium is at 144, WBC count is at 7.3 with a hemoglobin 9.1. Remains on Seroquel 150 mg p.o. twice daily. Remains on IV Lasix 40 mg every 12 hours with a negative fluid balance. Remains on aspirin and Plavix. Rest of the medications are essentially unchanged for now. IV fluids are currently at KVO. 09/01/2023, the patient is much more comfortable. Awake and alert and communicating on low-dose Precedex at 0.2 mcg/kg/h. She is also on Seroquel. No significant agitation. Communicating moving all 4 extremities other than limitation. She is on 3 L of oxygen by nasal cannula. No respiratory distress. White cell count of 9.8 with a hemoglobin 8.6, BUN is 55 with a creatinine of 2.7. Fluid balance over the past 24 hours is -3 L. She is being diuresed with IV Lasix and she is currently on 40 mg IV every 12 hours. No focal neurological deficits. Will continue Reevaluate today on 09/02/2023, patient remains in the ICU, remains agitated, re stless, patient is receiving Seroquel, she is also on Zyprexa, her Seroquel dose is 150 twice daily, today I added Ativan 0.5 mg every 2 hours as needed. Patient was extubated on 08/24, she had intermittent episodes of supraventricular tachycardia, being addressed by cardiology patient is confused and encephalopathic. WBC count today is 7.4 hemoglobin 8.8 basic metabolic profile is normal BUN is 52 creatinine 2.55, steadily improving. Remains on IV Lasix, patient is nonoliguric, her mentation seems to be the major issue with significant encephalopathy and confusion Objective - Vital Signs Vital signs: Vital Signs Temp 97.6 F 09/02/23 10:00 Pulse 96 09/02/23 10:00 Resp 23 09/02/23 10:00 BP 176/97 09/02/23 10:00 Pulse Ox 90 L 09/02/23 10:00 FiO2 3 09/02/23 04:00 Intake & Output 09/01/23 09/02/23 09/02/23 18:59 06:59 18:59 Intake Total 872.181 360 120 Output Total 1025 945 285 Balance -152.819 -585 -165 Intake: IV 260 160 120 Normal Saline Carrier @ 60 60 20 5mL/hr Piperacillin-Tazobactam 3 100 100 100 .375 gm In Sodium Chloride 0.9% 100 ml @ 25 mls/hr IVPB Q12HR [facility] Rx #:[id number] Sodium Ferric Gluconat- 100 Sucrose 125 mg In Sodium Chloride 0.9% 100 ml @ 100 mls/hr IVPB DAILY [facility] Rx#:[id number] Intake, IV Titration 12.181 Amount Dexmedetomidine/0.9% NaCl 12.181 (Pmx) 400 mcg In Empty Bag 1 bag @ 0.2 MCG/KG/HR 3.94 mls/hr IV .Q24H [facility] Rx#:[id number] Oral 600 200 Output: Urine 1025 945 285 Other: Voiding Method Indwelling Catheter Indwelling Catheter ABP, PAP, CO, CI - Last Documented Arterial Blood Pressure 125/73 - Exam PHYSICAL EXAMINATION General: Reveals a 58-year-old female, restless, agitated, confused, not in respiratory distress HEENT: Pupils are round and equally reacting to light. EOMI. CARDIOVASCULAR: S1 and S2 present. No murmurs, rubs, or gallops Pulmonary: Diminished breath sound bilaterally no crackles rhonchi or wheezes ABDOMEN: Soft, nontender, nondistended, normoactive bowel sounds. No palpable organomegaly. MUSCULOSKELETAL: No joint swelling or deformity. EXTREMITIES: No cyanosis, clubbing, bilateral pedal edema NEUROLOGICAL: Patient is confused, encephalopathic, otherwise no gross focal neurologic deficits. Psychiatric: Could not assess for SKIN: Patient has stage III decubitus ulcer, not evaluated today because the patient is extremely agitated. - Labs CBC & Chem 7: 09/02/23 00:08 09/02/23 00:08 Labs: Abnormal Lab Results - Last 24 Hours (Table) 09/01/23 09/01/23 09/02/23 Range/Units 17:07 20:07 00:08 RBC 3.06 L (3.80-5.40) m/uL Hgb 8.8 L (11.4-16.0) gm/dL Hct 28.9 L (34.0-46.0) % MCHC 30.5 L (31.0-37.0) g/dL RDW 18.5 H (11.5-15.5) % Chloride (98-107) mmol/L BUN (7-17) mg/dL Creatinine (0.52-1.04) mg/dL Glucose (74-99) mg/dL POC Glucose (mg/dL) 207 H 221 H (70-110) mg/dL Calcium (8.4-10.2) mg/dL 09/02/23 09/02/23 09/02/23 Range/Units 00:08 06:43 06:46 RBC (3.80-5.40) m/uL Hgb (11.4-16.0) gm/dL Hct (34.0-46.0) % MCHC (31.0-37.0) g/dL RDW (11.5-15.5) % Chloride 110 H (98-107) mmol/L BUN 52 H (7-17) mg/dL Creatinine 2.55 H (0.52-1.04) mg/dL Glucose 145 H (74-99) mg/dL POC Glucose (mg/dL) 69 L 66 L (70-110) mg/dL Calcium 8.2 L (8.4-10.2) mg/dL Assessment and Plan Assessment: Impression: Cardiopulmonary arrest x 2 Acute hypoxic respiratory failure requiring intubation and mechanical ventilation extubated on 08/24, presently on room air. Acute hypoxic encephalopathy related to cardiac arrest History of diastolic congestive heart failure History of underlying coronary artery disease and successful stenting of proximal RCA Status post non-ST elevation myocardial infarction Stage III chronic kidney disease Right heel pressure ulcer stage III Subacute fracture of medial and lateral malleolus patient is requiring a soft cast in the right lower extremity History of underlying COPD History of peripheral neuropathy Dyslipidemia Type 2 diabetes Recommendation: Considering her mental status and her encephalopathy we will continue to monitor in the ICU Continue Seroquel at 150 twice daily Added Ativan 0.5 mg every 2 hours as needed Continue intermittent Lasix Continue to monitor renal functioning Continue IV Zosyn for cellulitis. Continue subcu heparin for DVT prophylaxis Continue Imdur and Norvasc and Lipitor as well as Plavix and aspirin Will continue to follow Time with Patient: Less than 30
--- NOTE | 2023-09-02 13:08 | P.PN ---
Subjective Progress Note Date: 09/02/23 57-year-old female came in with complaints of shortness of breath and orthopnea found to be in congestive heart failure exacerbation patient has congestive heart failure with reduced ejection fraction in the past patient has increasing pedal edema. Patient also has an ulcer in the right foot stage III-IV which appeared to be infected we will consult wound care and infectious disease. Patient was on hemodialysis during last hospitalization her creatinine presently is 1.5 which is significantly improved patient potassium is 5.5, patient is on Entresto and Aldactone Aldactone will be held Entresto will be continued since she is receiving IV Lasix and expecting her potassium to improve if it does not improve or get worse then Entresto need to be discontinued as well. Patient has hypervolemic hyponatremia and hyperglycemia. 08/21/2023 Was evaluated today on the medical floor. Patient was continued on IV Lasix overnight however she was no longer reporting any shortness of breath and her lower extremity edema has improved. She was taken off of the Lasix at this time due to increased creatinine up to 2.31 additionally potassium remains elevated at 5.7. Echocardiogram comes back showing an improved ejection fraction of 60 to 65% because of this and also the hyperkalemia patient will not be continued on entresto. Patient was evaluated by infectious disease who felt like that heel ulcer on the right side was more likely a pressure injury stage III and is recommending local wound care to continue with Aquacel. Patient is reporting significant pain to the right foot and feels like it is fractured. Upon review of the patient's chart she did have a x-ray completed of this 12 days ago ordered by her project engineer Dr. Mayen. Ankle x-ray did review a mildly displaced acute distal fibular fracture. Repeat x-ray of the foot and ankle completed today does reveal a subacute fractures of the medial and lateral malleolus. The lateral malleolus fracture was seen on the patient's prior exam the medial malleolus fracture may be new in the interval and this would be considered an unstable ankle fracture. There is interval 6 mm displacement of the lateral malleolus. There is a deep soft tissue ulcer at the plantar heel with no clear radiographic findings of a contagious osteomyelitis at this time. Orthooedics was consulted for this. 08/22/2023 Patient evaluated in follow-up today resting in bed. She was taken off of the Lasix remains off at this time. Bladder scan was requested and not done yesterday to rule out urinary retention, creatinine today is increased up to 2.56. Bladder scan was done require urinary straight catheterization of 550 mL taken out. Urinalysis was sent which is significantly abnormal. Patient is also noted to have multiple genital lesions which appear wartlike she admits to not having any routine gynecological screenings for many years. She is not having any vaginal bleeding or discharge. Renal ultrasound has been ordered to rule out any obstructive uropathy. 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 Patient upon arrival to the intensive care unit had another episode of cardiac arrest patient had bradycardia while on pressors in the ICU patient was intubated following the first cardiac arrest and is currently on the mechanical ventilator 50% FiO2. Chest x-ray showing similar interstitial and patchy component airspace disease right greater than left. There is a possible trace left pleural effusion. A brain CT which shows no acute intracranial process. Blood work today shows a white blood cell count of 13.8, hemoglobin 9.5, sodium level of 135, BUN of 62, creatinine of 2.76. AST ALT and alk phosphatase are significantly elevated consistent with a shock liver. TSH 3.310. Urinalysis is abnormal. Her urine culture is showing gram-negative bacilli patient is covered for the urinary tract infection as well as aspiration with IV Zosyn being managed by infectious disease. Patient is currently sedated with propofol and did require vasopressor support with Levophed which has been weaned at this time. Will discontinue the gabapentin patient is continued on aspirin Plavix and statin has been placed on hold. There is concern for possible arrhythmia precipitating the asystole additionally we need to rule out embolism and a D-dimer has been ordered. 08/24/2023 Patient is seen in follow-up today continues in the ICU on mechanical ventilation. FiO2 is 50% although titrating and was just placed at 40% with a PEEP of 5. Chest x-ray today shows that the ET tube is 7 mm from the sonam suggesting a pulled back 2 cm and reassess and also suspected underlying vascular congestion. Neuro is following and per nursing staff patient is following some simple commands and undergoing sedation holidays. Patient noted to have reduced EF of 30 to 35% and cardiology had been following. Will reconsult and appreciate input and recommendations. patient did have dialysis catheter removed and sent for cultures which are pending. Infectious disease following and patient is maintained on antibiotic. D-dimer is elevated above 16 and will attempt to obtain a VQ scan.57-year-old female came in with complaints of shortness of breath and orthopnea found to be in congestive heart failure exacerbation patient has congestive heart failure with reduced ejection fraction in the past patient has increasing pedal edema. Patient also has an ulcer in the right foot stage III-IV which appeared to be infected we will consult wound care and infectious disease. Patient was on hemodialysis during last hospitalization her creatinine presently is 1.5 which is significantly improved patient potassium is 5.5, patient is on Entresto and Aldactone Aldactone will be held Entresto will be continued since she is receiving IV Lasix and expecting her potassium to improve if it does not improve or get worse then Entresto need to be discontinued as well. Patient has hypervolemic hyponatremia and hyperglycemia. 08/21/2023 Was evaluated today on the medical floor. Patient was continued on IV Lasix overnight however she was no longer reporting any shortness of breath and her lower extremity edema has improved. She was taken off of the Lasix at this time due to increased creatinine up to 2.31 additionally potassium remains elevated at 5.7. Echocardiogram comes back showing an improved ejection fraction of 60 to 65% because of this and also the hyperkalemia patient will not be continued on entresto. Patient was evaluated by infectious disease who felt like that heel ulcer on the right side was more likely a pressure injury stage III and is recommending local wound care to continue with Aquacel. Patient is reporting significant pain to the right foot and feels like it is fractured. Upon review of the patient's chart she did have a x-ray completed of this 12 days ago ordered by her project engineer Dr. Mayen. Ankle x-ray did review a mildly displaced acute distal fibular fracture. Repeat x-ray of the foot and ankle completed today does reveal a subacute fractures of the medial and lateral malleolus. The lateral malleolus fracture was seen on the patient's prior exam the medial malleolus fracture may be new in the interval and this would be considered an unstable ankle fracture. There is interval 6 mm displacement of the lateral malleolus. There is a deep soft tissue ulcer at the plantar heel with no clear radiographic findings of a contagious osteomyelitis at this time. Orthooedics was consulted for this. 08/22/2023 Patient evaluated in follow-up today resting in bed. She was taken off of the Lasix remains off at this time. Bladder scan was requested and not done yesterday to rule out urinary retention, creatinine today is increased up to 2.56. Bladder scan was done require urinary straight catheterization of 550 mL taken out. Urinalysis was sent which is significantly abnormal. Patient is also noted to have multiple genital lesions which appear wartlike she admits to not having any routine gynecological screenings for many years. She is not having any vaginal bleeding or discharge. Renal ultrasound has been ordered to rule out any obstructive uropathy. 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 Patient upon arrival to the intensive care unit had another episode of cardiac arrest patient had bradycardia while on pressors in the ICU patient was intubated following the first cardiac arrest and is currently on the mechanical ventilator 50% FiO2. Chest x-ray showing similar interstitial and patchy component airspace disease right greater than left. There is a possible trace left pleural effusion. A brain CT which shows no acute intracranial process. Blood work today shows a white blood cell count of 13.8, hemoglobin 9.5, sodium level of 135, BUN of 62, creatinine of 2.76. AST ALT and alk phosphatase are significantly elevated consistent with a shock liver. TSH 3.310. Urinalysis is abnormal. Her urine culture is showing gram-negative bacilli patient is covered for the urinary tract infection as well as aspiration with IV Zosyn being managed by infectious disease. Patient is currently sedated with propofol and did require vasopressor support with Levophed which has been weaned at this time. Will discontinue the gabapentin patient is continued on aspirin Plavix and statin has been placed on hold. There is concern for possible arrhythmia precipitating the asystole additionally we need to rule out embolism and a D-dimer has been ordered. 08/24/2023 Patient is seen in follow-up today continues in the ICU on mechanical ventilat ion. FiO2 is 50% although titrating and was just placed at 40% with a PEEP of 5. Chest x-ray today shows that the ET tube is 7 mm from the sonam suggesting a pulled back 2 cm and reassess and also suspected underlying vascular congestion. Neuro is following and per nursing staff patient is following some simple commands and undergoing sedation holidays. Patient noted to have reduced EF of 30 to 35% and cardiology had been following. Will reconsult and appreciate input and recommendations. patient did have dialysis catheter removed and sent for cultures which are pending. Infectious disease following and patient is maintained on antibiotic. D-dimer is elevated above 16 and will attempt to obtain a VQ scan. 08/25/23 : Patient seen and evaluated at bedside, patient extubated around noon, transition to 5 L of oxygen to nasal cannula. Family at bedside, blood work reviewed hemoglobin 10.3, serum chemistry reviewed sodium 140 potassium 4.8 BUN 57 creatinine 2.49 calcium of 7. 08/26/23 : Patient seen and evaluated at bedside, patient remains in medical ICU, does complain of chest pain from CPR. Patient has been weaned off dopamine, cardiology following, blood work reviewed, hemoglobin 8.5 platelet count of 217, serum chemistry shows sodium 141 BUN 51 creatinine 2.28. Followed up by nephrology as well MARYLOU secondary to ATN continue to monitor intake and output 08/27/23: Patient seen and evaluated bedside, on evaluation patient is disoriented, patient is drowsy however likely having acute delirium. Seen by cardiology echocardiogram shows preserved ejection fraction continue with current medical management, patient on Precedex for acute delirium, continue to remain on oxygen supplementation with nasal cannula blood work reviewed CBC showed WBC 8.2 hemoglobin 8.6 serum chemistry showed creatinine of 2.22. Patient remains delirious, daughter at bedside all questions answered 08/28/2023 Patient was agitated earlier requiring Seroquel and Placed on Precedex because s he was has risk to self and others Currently when I saw the patient she was sleepy However she is not tachypneic show does not look in pain. Vitals are stable She is saturating 91% on 2 L oxygen via nasal cannula She remains on Zosyn for pneumonia and UTI She is on normal saline at 50 mL/h 08/29/2023 Patient remains sleepy, she still has some encephalopathy But she is on Precedex which will be tapered off by pulmonary team today to assess her mentation as well. Patient has been followed by neurology for suspected anoxic brain injury after her cardiac arrest and return of circulation on 08/22. There is no evidence of seizure-like activity She has catheter tip infection with culture growing Corynebacterium species and she is currently covered with Zosyn which also help for her right heel pressure ulcer and aspiration pneumonia and UTI. Cardiology evaluated the patient and there is no clear evidence for her cardiac arrest although she has history of coronary artery disease and previous stents. Currently with no chest pain. She remains on aspirin and Plavix, gentle hydration, IV steroids 08/30/2023 Today her sedation remains off however patient mentation not completely resolved, it is somewhat better as she was more sleepy yesterday She is eating okay, swallowing is fine She was started on IV Lasix twice daily per rn neonatal icu. She has good urine output and normal send discontinued She is hemodynamically stable and oxygenation is acceptable Remains on aspirin and Plavix and Seroquel 08/31/23: Seen and evaluated at bedside, patient remains on 4 L of oxygen, blood work reviewed, WBC 7.3 hemoglobin 9.1 platelet count of 203 glucose 119. CBC reviewed showed WBC 7.3 hemoglobin 9.1 platelet count of 203.. Neurology consulted and following. Patient is awake and alert able to answer questions and follow commands sister at bedside all questions answered 09/01/23: Seen and evaluated at bedside, patient vitals reviewed, serum chemistry reviewed sodium 145 potassium 4.6 creatinine 2.71, CBC reviewed patient remains on IV Zosyn , appreciate input from nephrology continue patient on IV Lasix, delirium persist 09/02/23: Patient seen and evaluated bedside, patient been admitted for cardiopulmonary arrest, respiratory failure s/p extubation on nasal cannula however continues to remain delirious. Blood work reviewed hemoglobin 8.8, platelet count 226, serum chemistry reviewed creatinine 2.55 potassium 4.5. MRI brain has been ordered which is pending, patient remains disoriented PHYSICAL EXAMINATION: GENERAL: The patient is on nasal cannula, disoriented, alert however oriented x 0 HEENT: Pupils are round and equally reacting to light. EOMI. CARDIOVASCULAR: S1 and S2 present. No murmurs, rubs, or gallops. PULMONARY: Decreased breath sounds bilaterally ABDOMEN: Soft, nontender, nondistended, normoactive bowel sounds. No palpable organomegaly. MUSCULOSKELETAL: No joint swelling or deformity. EXTREMITIES: Right lower extremity bandage NEUROLOGICAL: pupils reactive unable to assess sedated SKIN: Patient has right plantar surface ulcer on the posterior foot stage III-IV with areas of necrotic tissue Assessment and plan * Asystole/cardiopulmonary arrest x 2 with CPR/ROSC * Respiratory failure requiring intubation s/p extubation 08/25/2023 * Acute metabolic encephalopathy * Congestive heart failure with systolic dysfunction acute on chronic exacerbation * Ischemic cardiomyopathy with improved EF * Acute kidney injury secondary to ATN on chronic kidney disease stage III * Urinary tract infection with E. coli * Subacute fracture of the medial and lateral malleolus, orthopedics following * Right heel stage III pressure injury continue local wound care with aquacel ID following. * Genital lesions, will need obgyn specialist follow up outpatient for routine screenings * Hypertension * Hyperlipidemia * Type 2 diabetes mellitus uncontrolled hgb a1c 12.1 * Severe pulmonary hypertension * COPD without any acute exacerbation * Peripheral neuropathy * Patient continues to remain critically ill, was intubated s/p extubation, weaned off to nasal cannula 4 L * In regards to acute encephalopathy likely post ICU delirium, neurology was consulted continue with frequent reorientation, patient is off Precedex, CT head negative for acute intracranial process EEG is abnormal with background slowing encephalopathy noted, MRI brain requested by neurology, continue with status secondary to disorientation * In regards to urinary tract infection, chronic nonhealing wound and right heel, urine cultures grew E. coli. Patient treated with IV antibiotic received IV Zosyn, end date determined by infectious disease * In regards to aspiration pneumonia,, continue patient on IV Zosyn managed by infectious disease * In regards to cardiomyopathy patient weaned off pressor support, dopamine weaned off as well, continue current medications including aspirin, Plavix, cardiology following continue IV Lasix nephrology following * In regards to suspicion for pulm embolism venous ultrasound lower extremity ordered no evidence of DVT noted on subcu heparin for DVT prophylaxis * In regards to diabetes mellitus continue patient on Accu-Cheks, continue correctional insulin Objective - Vital Signs Vital signs: Vital Signs Temp 97.0 F L 09/02/23 04:00 Pulse 95 09/02/23 07:00 Resp 24 09/02/23 07:00 BP 123/69 09/02/23 07:00 Pulse Ox 93 L 09/02/23 08:31 FiO2 3 05/06/24 04:00 Intake & Output 09/01/23 09/02/23 09/02/23 18:59 06:59 18:59 Intake Total 872.181 360 5 Output Total 1025 945 85 Balance -152.819 -585 -80 Intake: IV 260 160 5 Normal Saline Carrier @ 60 60 5 5mL/hr Piperacillin-Tazobactam 3 100 100 .375 gm In Sodium Chloride 0.9% 100 ml @ 25 mls/hr IVPB Q12HR [facility] Rx #:[id number] Sodium Ferric Gluconat- 100 Sucrose 125 mg In Sodium Chloride 0.9% 100 ml @ 100 mls/hr IVPB DAILY R[facility]IE Rx#:[id number] Intake, IV Titration 12.181 Amount Dexmedetomidine/0.9% NaCl 12.181 (Pmx) 400 mcg In Empty Bag 1 bag @ 0.2 MCG/KG/HR 3.94 mls/hr IV .Q24H RYLIE Rx#:[id number] Oral 600 200 Output: Urine 1025 945 85 Other: Voiding Method Indwelling Catheter Indwelling Catheter ABP, PAP, CO, CI - Last Documented Arterial Blood Pressure 125/73 - Labs CBC & Chem 7: 09/02/23 00:08 09/02/23 00:08 Labs: Abnormal Lab Results - Last 24 Hours (Table) 09/01/23 09/01/23 09/01/23 Range/Units 11:42 17:07 20:07 RBC (3.80-5.40) m/uL Hgb (11.4-16.0) gm/dL Hct (34.0-46.0) % MCHC (31.0-37.0) g/dL RDW (11.5-15.5) % Chloride (98-107) mmol/L BUN (7-17) mg/dL Creatinine (0.52-1.04) mg/dL Glucose (74-99) mg/dL POC Glucose (mg/dL) 244 H 207 H 221 H (70-110) mg/dL Calcium (8.4-10.2) mg/dL 09/02/23 09/02/23 09/02/23 Range/Units 00:08 00:08 06:43 RBC 3.06 L (3.80-5.40) m/uL Hgb 8.8 L (11.4-16.0) gm/dL Hct 28.9 L (34.0-46.0) % MCHC 30.5 L (31.0-37.0) g/dL RDW 18.5 H (11.5-15.5) % Chloride 110 H (98-107) mmol/L BUN 52 H (7-17) mg/dL Creatinine 2.55 H (0.52-1.04) mg/dL Glucose 145 H (74-99) mg/dL POC Glucose (mg/dL) 69 L (70-110) mg/dL Calcium 8.2 L (8.4-10.2) mg/dL 09/02/23 Range/Units 06:46 RBC (3.80-5.40) m/uL Hgb (11.4-16.0) gm/dL Hct (34.0-46.0) % MCHC (31.0-37.0) g/dL RDW (11.5-15.5) % Chloride (98-107) mmol/L BUN (7-17) mg/dL Creatinine (0.52-1.04) mg/dL Glucose (74-99) mg/dL POC Glucose (mg/dL) 66 L (70-110) mg/dL Calcium (8.4-10.2) mg/dL
[2023-09-02 17:01] LABS: Glucose,Whole Blood 77 mg/dL (70-110)
--- NOTE | 2023-09-02 18:03 | P.PN ---
Subjective History of Present Illness: The patient is a 57-year-old female with known history of hypertension, hyperlipidemia, diabetes mellitus as well as a history of coronary disease status post stenting of the RCA and chronic kidney disease who presented with dyspnea and had a cardiopulmonary arrest requiring CPR and mechanical ventilation. She is extubated, complaining of chest wall tenderness post CPR. She continues to be in sinus mechanism and hemodynamically stable. She had some bradycardia earlier and was started on IV dopamine. She is in sinus mechanism with no further bradycardia. Her urinary output has been stable. Her initial echo on presentation showed a preserved systolic function subsequently was found to have cardiomyopathy but that was done shortly after the event. She has a subacute fracture of the medial and lateral malleolus on the right side. August 26: The patient is sedated, she was quite agitated during the night. She had few episodes of sinus bradycardia, brief. She had no evidence of high-grade AV block. Her urinary output is stable. Her blood pressure is under good control without any vasopressors. Her repeat echocardiogram showed a preserved systolic function. She has been evaluated by neurology for possible anoxic encephalopathy. August 1: The patient is awake, confused. In sinus mechanism with no further episodes of high-grade AV block. Her blood pressure is stable. Her urinary output stable. There is no evidence of atrial fibrillation or ventricular ectopic activity. Repeat echocardiogram showed a normal left ventricle systolic function. August 28: The patient is sedated. She was agitated and confused during the night. She had no further episodes of bradycardia arrhythmia. Her blood pressure has been stable. She continues to be intubated. She is undergoing an EEG to evaluate her neurological status. There is no evidence of atrial fibrillation or ventricular tachyarrhythmia. August 29: The patient is more awake continues to have some episodes of confusion. She continues to be in sinus mechanism with no arrhythmia. Her EEG showed some improvement. Her urinary output has been good. Her blood pressure is stable and there is no evidence of significant hypotension. Medications: Aspirin, amlodipine 5 mg daily, Plavix 75 mg daily, insulin, Lipitor 40 mg daily, isosorbide mononitrate 30 mg daily, insulin 5/6 patient seen and examined. We were reconsulted secondary episode of SVT. Patient wound the SVT with heart rate in the 130s and 140s. She denies any chest pain other than reproducible chest pain. Denies any significant shortness breath. Metoprolol was ordered and initially refused and was given IV metoprolol however able to tolerate oral metoprolol today. Physical Examination: Vitals reviewed Head: Normocephalic. Eyes: Sclerae nonicteric. Neck: Good carotid upstroke, no bruit, no jugular venous distention. Lungs: Clear anteriorly Heart: Regular rate and rhythm, S1-S2, no S3, no rub. No murmur. Abdomen: Soft , positive bowel sounds no organomegaly. Extremities: Trace edema on the left, intact distal pulses. Cast on the right lower extremity Labs: BUN 56, creatinine 2.98, potassium 5.0. Impression: 1. Status post cardiopulmonary arrest, etiology unclear. No clear evidence of acute ischemic event. 2. Status post stenting of the RCA during prior admission 3. Chronic kidney disease 4. Chest wall discomfort, stable 5. History of hyperlipidemia 6. History of hypertension 7. Bradycardia resolved 8. History of diabetes 9. Cardiomyopathy resolved 10. Anoxic encephalopathy, postarrest, improving Plan: Patient having episodes of SVT and therefore will attempt to add back the Toprol. We have been initially avoiding the secondary some bradycardia however appears to be tolerating the Toprol 12.5 twice a day. Continue to monitor s ymptomatically. Objective - Vital Signs Vital signs: Vital Signs Temp 98.2 F 09/02/23 16:00 Pulse 73 09/02/23 17:00 Resp 10 L 09/02/23 17:00 BP 143/76 09/02/23 17:00 Pulse Ox 98 09/02/23 17:00 FiO2 3 09/02/23 04:00 Intake & Output 09/01/23 09/02/23 09/02/23 18:59 06:59 18:59 Intake Total 872.181 360 240 Output Total 7505 168 7990 Balance -152.819 -585 -880 Intake: IV 260 160 240 Normal Saline Carrier @ 60 60 40 5mL/hr Piperacillin-Tazobactam 3 100 100 100 .375 gm In Sodium Chloride 0.9% 100 ml @ 25 mls/hr IVPB Q12HR [facility] Rx #:[id number] Sodium Ferric Gluconat- 100 100 Sucrose 125 mg In Sodium Chloride 0.9% 100 ml @ 100 mls/hr IVPB DAILY [facility] Rx#:[id number] Intake, IV Titration 12.181 Amount Dexmedetomidine/0.9% NaCl 12.181 (Pmx) 400 mcg In Empty Bag 1 bag @ 0.2 MCG/KG/HR 3.94 mls/hr IV .Q24H [facility] Rx#:[id number] Oral 600 200 Output: Urine 6517 602 9463 Other: Voiding Method Indwelling Catheter Indwelling Catheter Indwelling Catheter ABP, PAP, CO, CI - Last Documented Arterial Blood Pressure 125/73 - Labs CBC & Chem 7: 09/02/23 00:08 09/02/23 00:08 Labs: Abnormal Lab Results - Last 24 Hours (Table) 09/01/23 09/02/23 09/02/23 Range/Units 20:07 00:08 00:08 RBC 3.06 L (3.80-5.40) m/uL Hgb 8.8 L (11.4-16.0) gm/dL Hct 28.9 L (34.0-46.0) % MCHC 30.5 L (31.0-37.0) g/dL RDW 18.5 H (11.5-15.5) % Chloride 110 H (98-107) mmol/L BUN 52 H (7-17) mg/dL Creatinine 2.55 H (0.52-1.04) mg/dL Glucose 145 H (74-99) mg/dL POC Glucose (mg/dL) 221 H (70-110) mg/dL Calcium 8.2 L (8.4-10.2) mg/dL 09/02/23 09/02/23 Range/Units 06:43 06:46 RBC (3.80-5.40) m/uL Hgb (11.4-16.0) gm/dL Hct (34.0-46.0) % MCHC (31.0-37.0) g/dL RDW (11.5-15.5) % Chloride (98-107) mmol/L BUN (7-17) mg/dL Creatinine (0.52-1.04) mg/dL Glucose (74-99) mg/dL POC Glucose (mg/dL) 69 L 66 L (70-110) mg/dL Calcium (8.4-10.2) mg/dL
--- NOTE | 2023-09-02 19:14 | P.PN ---
Subjective Progress Note Date: 09/01/23 Principal diagnosis: Reason for follow-up is right heel diabetic foot ulcer Patient is a 57-year-old female with a past medical history significant for diabetes mellitus hypertension hyperlipidemia history of renal insufficiency requiring dialysis currently not on dialysis and the patient also have a chronic nonhealing wound to the right heel area, present to the hospital with increasing shortness of breath and swelling concerning for fluid overload.Patient did have a cardiac arrest around 4 AM 08/23/2023 with the patient went into asystole got resuscitated intubated and transferred to the ICU subsequently have another cardiac arrest with PEA rhythm not resuscitated. On today's evaluation that is 09/01/2023,the patient remains to be afebrile, patient is on 3 L nasal cannula supplemental oxygen and denies chest pain did have a cough not bring up any sputum no vomiting or diarrhea has been reported by the nursing staff patient white count is 9.8 reatinine 2.71 Objective - Vital Signs Vital signs: Vital Signs Temp 97.9 F 09/01/23 16:00 Pulse 71 09/01/23 17:00 Resp 13 09/01/23 17:00 BP 136/82 09/01/23 17:00 Pulse Ox 95 09/01/23 17:00 FiO2 2 09/01/23 04:00 Intake & Output 08/31/23 09/01/23 09/01/23 18:59 06:59 18:59 Intake Total 287.547 205.462 652.181 Output Total 1450 2105 825 Balance -1162.453 -1899.538 -172.819 Intake: IV 260 135 240 Normal Saline Carrier @ 60 35 40 5mL/hr Piperacillin-Tazobactam 3 100 100 100 .375 gm In Sodium Chloride 0.9% 100 ml @ 25 mls/hr IVPB Q12HR [facility] Rx #:[id number] Sodium Ferric Gluconat- 100 100 Sucrose 125 mg In Sodium Chloride 0.9% 100 ml @ 100 mls/hr IVPB DAILY [facility] Rx#:[id number] Intake, IV Titration 27.547 70.462 12.181 Amount Dexmedetomidine/0.9% NaCl 27.547 70.462 12.181 (Pmx) 400 mcg In Empty Bag 1 bag @ 0.2 MCG/KG/HR 3.94 mls/hr IV .Q24H [facility] Rx#:[id number] Oral 400 Output: Urine 1450 2105 825 Other: Voiding Method Indwelling Catheter Indwelling Catheter Indwelling Catheter ABP, PAP, CO, CI - Last Documented Arterial Blood Pressure 125/73 - Exam GENERAL DESCRIPTION: Middle-aged female intubated on the vent RESPIRATORY SYSTEM: Unlabored breathing , decreased breath sounds at bases HEART: S1 S2 regular rate and rhythm , ABDOMEN: Soft , no tenderness EXTREMITIES: Right heel wound is currently dressed - Labs CBC & Chem 7: 09/02/23 00:08 09/02/23 00:08 Labs: Abnormal Lab Results - Last 24 Hours (Table) 08/31/23 09/01/23 09/01/23 Range/Units 20:24 02:47 02:51 RBC 2.86 L (3.80-5.40) m/uL Hgb 8.6 L (11.4-16.0) gm/dL Hct 26.7 L (34.0-46.0) % RDW 18.9 H (11.5-15.5) % Lymphocytes # 0.8 L (1.0-4.8) k/uL Chloride 113 H (98-107) mmol/L BUN 55 H (7-17) mg/dL Creatinine 2.71 H (0.52-1.04) mg/dL Glucose 114 H (74-99) mg/dL POC Glucose (mg/dL) 199 H (70-110) mg/dL Calcium 8.0 L (8.4-10.2) mg/dL 09/01/23 09/01/23 09/01/23 Range/Units 06:27 11:42 17:07 RBC (3.80-5.40) m/uL Hgb (11.4-16.0) gm/dL Hct (34.0-46.0) % RDW (11.5-15.5) % Lymphocytes # (1.0-4.8) k/uL Chloride (98-107) mmol/L BUN (7-17) mg/dL Creatinine (0.52-1.04) mg/dL Glucose (74-99) mg/dL POC Glucose (mg/dL) 117 H 244 H 207 H (70-110) mg/dL Calcium (8.4-10.2) mg/dL Assessment and Plan (1) Pressure ulcer of right heel, stage 3 Current Visit: No Status: Acute Code(s): L89.613 - PRESSURE ULCER OF RIGHT HEEL, STAGE 3 SNOMED Code(s): 53848645894134 (2) Type 2 diabetes mellitus with foot ulcer Current Visit: No Status: Acute Code(s): E11.621 - TYPE 2 DIABETES MELLITUS WITH FOOT ULCER; L97.509 - NON-PRESSURE CHRONIC ULCER OTH PRT UNSP FOOT W UNSP SEVERITY SNOMED Code(s): 653147254 (3) UTI (urinary tract infection) Current Visit: Yes Status: Acute Code(s): N39.0 - URINARY TRACT INFECTION, SITE NOT SPECIFIED SNOMED Code(s): 01800730 (4) Aspiration pneumonia Current Visit: Yes Status: Acute Code(s): J69.0 - PNEUMONITIS DUE TO INHALATION OF FOOD AND VOMIT SNOMED Code(s): 043635188 Plan: 1patient with chronic nonhealing wound to the right heel area which has been there for a couple of months now patient overall wound base looks clean with no slough tissue in the wound is not pulling out the wound more likely a pressure ulcer stage III with evidence of any secondary cellulitis, local wound care has been switched over to the wound VAC to continue management per wound care 2-patient did have cardiac arrest requiring resuscitation in this patient who did have a chest x-ray with a right-sided infiltrate and question of aspiration pneumonia urine culture grew E. coli with some resistant pattern, sputum has been negative blood culture has been negative catheter tip cultures growing corynebacterium species more likely contamination with a blood culture negative no need for vancomycin. 3patient is afebrile white count remains to be normal, patient is currently covered with Zosyn and continue supportive care Dictation was produced using [employer] dictation software. please excuse any grammatical, word or spelling errors. Time with Patient: Less than 30
--- NOTE | 2023-09-02 19:15 | P.PN ---
Subjective Progress Note Date: 09/02/23 Principal diagnosis: Reason for follow-up is right heel diabetic foot ulcer Patient is a 57-year-old female with a past medical history significant for diabetes mellitus hypertension hyperlipidemia history of renal insufficiency requiring dialysis currently not on dialysis and the patient also have a chronic nonhealing wound to the right heel area, present to the hospital with increasing shortness of breath and swelling concerning for fluid overload.Patient did have a cardiac arrest around 4 AM 08/23/2023 with the patient went into asystole got resuscitated intubated and transferred to the ICU subsequently have another cardiac arrest with PEA rhythm not resuscitated. On today's evaluation that is 09/02/2023, the patient continues to be afebrile, the patient is on 3 L nasal cannula oxygen and breathing comfortably, the Pt pleasantly confused and currently on restraints no vomiting diarrhea or any other changes reported by the sitter at the bedside Patient white count is 7.4, creatinine is 2.55 Objective - Vital Signs Vital signs: Vital Signs Temp 97.6 F 09/02/23 10:00 Pulse 96 09/02/23 10:00 Resp 23 09/02/23 10:00 BP 176/97 09/02/23 10:00 Pulse Ox 90 L 09/02/23 10:00 FiO2 3 09/02/23 04:00 Intake & Output 09/01/23 09/02/23 09/02/23 18:59 06:59 18:59 Intake Total 872.181 360 120 Output Total 1025 945 285 Balance -152.819 -585 -165 Intake: IV 260 160 120 Normal Saline Carrier @ 60 60 20 5mL/hr Piperacillin-Tazobactam 3 100 100 100 .375 gm In Sodium Chloride 0.9% 100 ml @ 25 mls/hr IVPB Q12HR [facility] Rx #:[id number] Sodium Ferric Gluconat- 100 Sucrose 125 mg In Sodium Chloride 0.9% 100 ml @ 100 mls/hr IVPB DAILY [facility] Rx#:[id number] Intake, IV Titration 12.181 Amount Dexmedetomidine/0.9% NaCl 12.181 (Pmx) 400 mcg In Empty Bag 1 bag @ 0.2 MCG/KG/HR 3.94 mls/hr IV .Q24H [facility] Rx#:[id number] Oral 600 200 Output: Urine 1025 945 285 Other: Voiding Method Indwelling Catheter Indwelling Catheter ABP, PAP, CO, CI - Last Documented Arterial Blood Pressure 125/73 - Exam GENERAL DESCRIPTION: Middle-aged female intubated on the vent RESPIRATORY SYSTEM: Unlabored breathing , decreased breath sounds at bases HEART: S1 S2 regular rate and rhythm , ABDOMEN: Soft , no tenderness EXTREMITIES: Right heel wound is currently dressed - Labs CBC & Chem 7: 09/02/23 00:08 09/02/23 00:08 Labs: Abnormal Lab Results - Last 24 Hours (Table) 09/01/23 09/01/23 09/02/23 Range/Units 17:07 20:07 00:08 RBC 3.06 L (3.80-5.40) m/uL Hgb 8.8 L (11.4-16.0) gm/dL Hct 28.9 L (34.0-46.0) % MCHC 30.5 L (31.0-37.0) g/dL RDW 18.5 H (11.5-15.5) % Chloride (98-107) mmol/L BUN (7-17) mg/dL Creatinine (0.52-1.04) mg/dL Glucose (74-99) mg/dL POC Glucose (mg/dL) 207 H 221 H (70-110) mg/dL Calcium (8.4-10.2) mg/dL 09/02/23 09/02/23 09/02/23 Range/Units 00:08 06:43 06:46 RBC (3.80-5.40) m/uL Hgb (11.4-16.0) gm/dL Hct (34.0-46.0) % MCHC (31.0-37.0) g/dL RDW (11.5-15.5) % Chloride 110 H (98-107) mmol/L BUN 52 H (7-17) mg/dL Creatinine 2.55 H (0.52-1.04) mg/dL Glucose 145 H (74-99) mg/dL POC Glucose (mg/dL) 69 L 66 L (70-110) mg/dL Calcium 8.2 L (8.4-10.2) mg/dL Assessment and Plan (1) Pressure ulcer of right heel, stage 3 Current Visit: No Status: Acute Code(s): L89.613 - PRESSURE ULCER OF RIGHT HEEL, STAGE 3 SNOMED Code(s): 36564659366584 (2) Type 2 diabetes mellitus with foot ulcer Current Visit: No Status: Acute Code(s): E11.621 - TYPE 2 DIABETES MELLITUS WITH FOOT ULCER; L97.509 - NON-PRESSURE CHRONIC ULCER OTH PRT UNSP FOOT W UNSP SEVERITY SNOMED Code(s): 810743672 (3) UTI (urinary tract infection) Current Visit: Yes Status: Acute Code(s): N39.0 - URINARY TRACT INFECTION, SITE NOT SPECIFIED SNOMED Code(s): 08390271 (4) Aspiration pneumonia Current Visit: Yes Status: Acute Code(s): J69.0 - PNEUMONITIS DUE TO INHALATION OF FOOD AND VOMIT SNOMED Code(s): 742221895 Plan: 1patient with chronic nonhealing wound to the right heel area which has been there for a couple of months now patient overall wound base looks clean with no slough tissue in the wound is not pulling out the wound more likely a pressure ulcer stage III with evidence of any secondary cellulitis, local wound care has been switched over to the wound VAC to continue management per wound care 2-patient did have cardiac arrest requiring resuscitation in this patient who did have a chest x-ray with a right-sided infiltrate and question of aspiration pneumonia urine culture grew E. coli with some resistant pattern, sputum has been negative blood culture has been negative catheter tip cultures growing corynebacterium species more likely contamination with a blood culture negative no need for vancomycin. 3patient is afebrile white count remains has been normal patient is currently covered [facility] to continue and monitor clinical course closely Dictation was produced using [employer] dictation software. please excuse any grammatical, word or spelling errors. Time with Patient: Less than 30
[2023-09-02 19:59] LABS: Glucose,Whole Blood 97 mg/dL (70-110)
[2023-09-03 06:23] LABS: Anisocytosis Slight; HGB 8.1 gm/dL (11.4-16.0); Hypochromasia Moderate; MCH 29.2 pg (25.0-35.0); MCHC 31.2 g/dL (31.0-37.0); MCV 93.8 fL (80.0-100.0); Macrocytosis Slight; Mean Platelet Volume 9.2; Platelet Count 266 k/uL (150-450); RBC 2.77 m/uL (3.80-5.40); RDW 18.8 % (11.5-15.5); WBC 7.5 k/uL (3.8-10.6)
[2023-09-03 06:25] LABS: Glucose,Whole Blood 100 mg/dL (70-110)
[2023-09-03 06:41] LABS: African American GFR (CKD) 26 (>60 ml/min/1.73 sqM); Anion Gap 6 mmol/L; Blood Urea Nitrogen 54 mg/dL (7-17); Calcium 8.3 mg/dL (8.4-10.2); Carbon Dioxide 27 mmol/L (22-30); Chloride 111 mmol/L (98-107); Glucose 83 mg/dL (74-99); Non-African American GFR(CKD) 22 (>60 ml/min/1.73 sqM); Potassium 4.7 mmol/L (3.5-5.1); Sodium 144 mmol/L (137-145)
--- NOTE | 2023-09-03 09:51 | P.PN ---
Subjective Patient is seen in follow-up for acute kidney injury. Renal function improving. On IV Lasix. Nonoliguric. Sitter present at bedside. No improvement in mentation. Vital signs are stable. General: Resting in bed. HEENT: On nasal cannula. LUNGS: No audible rhonchi or wheezes. HEART: Rate and Rhythm are regular. ABDOMEN: No distention. EXTREMITITES: 1+ edema. Objective - Vital Signs Vital signs: Vital Signs Temp 97.2 F L 09/03/23 04:00 Pulse 89 09/03/23 07:00 Resp 13 09/03/23 07:00 BP 171/69 09/03/23 07:00 Pulse Ox 95 09/03/23 09:44 FiO2 3 09/02/23 04:00 Intake & Output 09/02/23 09/03/23 09/03/23 18:59 06:59 18:59 Intake Total 250 155 5 Output Total 1470 2125 75 Balance -1219 -1970 70 Intake: IV 250 155 5 Normal Saline Carrier @ 50 55 5 5mL/hr Piperacillin-Tazobactam 3 100 100 .375 gm In Sodium Chloride 0.9% 100 ml @ 25 mls/hr IVPB Q12HR [facility] Rx #:[id number] Sodium Ferric Gluconat- 100 Sucrose 125 mg In Sodium Chloride 0.9% 100 ml @ 100 mls/hr IVPB DAILY [facility] Rx#:[id number] Output: Urine 1470 2125 75 Other: Voiding Method Indwelling Catheter Indwelling Catheter ABP, PAP, CO, CI - Last Documented Arterial Blood Pressure 125/73 - Labs CBC & Chem 7: 09/03/23 05:44 09/03/23 05:44 Labs: Abnormal Lab Results - Last 24 Hours (Table) 09/03/23 09/03/23 Range/Units 05:44 05:44 RBC 2.77 L (3.80-5.40) m/uL Hgb 8.1 L (11.4-16.0) gm/dL Hct 26.0 L (34.0-46.0) % RDW 18.8 H (11.5-15.5) % Chloride 111 H (98-107) mmol/L BUN 54 H (7-17) mg/dL Creatinine 2.33 H (0.52-1.04) mg/dL Calcium 8.3 L (8.4-10.2) mg/dL Assessment and Plan Plan: Assessment: 1. Acute kidney injury on chronic kidney disease secondary to ATN secondary to cardiorenal syndrome and cardiac arrest. Creatinine 1.5 admission and peaked at 2.98 this admission - 2.33 today. Patient was on hemodialysis in the past with last treatment being July 02, 2023. 2. Volume overload. Improving with diuresis. 3. Acute on chronic diastolic CHF. 4. Diabetes mellitus. 5. Right foot wound. 6. Coronary disease with cardiac stenting. 7. Status post PEA arrest with concern for anoxic encephalopathy. 8. Septic shock with urine culture positive for E. coli and catheter tip culture positive for Corynebacterium. On antibiotics. Off vasopressors. 9. Metabolic acidosis secondary to acute kidney injury and IV fluids. On oral bicarb. Improved. 10. Anemia. Iron deficiency noted. Status post IV iron. On Aranesp. Plan: Maintain IV Lasix. Encouraged oral intake. Avoid nephrotoxins. Continue to monitor renal function and urine output.
[2023-09-03 12:01] LABS: Glucose,Whole Blood 148 mg/dL (70-110)
--- NOTE | 2023-09-03 13:14 | P.PN ---
Subjective Progress Note Date: 09/03/23 Principal diagnosis: Cardiopulmonary arrest x 2 This is a 57-year-old female who was admitted back on August 18, for a right heel wound. Early this morning, the patient had a cardiopulmonary arrest. The patient apparently was initially found to be bradycardic, and then had asystole. She received 3 rounds of epinephrine. She arrived to the intensive care unit this morning at 630, having been intubated on the floor by anesthesia. In the ICU, the patient had an episode of pulseless electrical activity, and asystole, and received 2 rounds of epinephrine, a dose of atropine, and some sodium bicarbonate. I came into the intensive care unit this morning, early, to place a left internal jugular triple-lumen catheter, and a right femoral arterial line. Currently, the patient is on volume assist-control, rate 16, tidal volume 400, FiO2 50%, PEEP of 5. The most recent blood gases show pO2 of 75, pCO2 49, pH is 7.44. Arterial blood gases shortly after intubation showed a pO2 of 268, pCO2 of 38, and a pH of 7.25. The patient is currently on norepinephrine at 1.4 mcg/min, and saline at 50 cc an hour. Current labs include a white count 13.8, hemoglobin 9.5, hematocrit 31, and a platelet count of 257,000. PT was 12.9 with an INR of 1.2. Sodium 135, potassium 4.9, chlorides 111, CO2 19, anion gap 5, BUN 62, creatinine 2.76. The patient's AST is 468. ALT is 286. Albumin is 2.1. Urine, is suspicious for possible infection. Brain CT Today, Shows No Acute Intracranial Process. Chest x-ray shows bilateral patchy airspace disease, right greater than left. 08/30/2023, the patient is being seen for a follow-up. Remains encephalopathic, speech at times is garbled. Follows commands. She is not consistently having a conversation. A repeat CAT scan of the brain was done on 08/28/2023 and the findings showed no acute abnormalities. EEG was also done on 08/29/2023 and it showed abnormal slowing and mild to moderate degree of encephalopathy with generalized cerebral dysfunction. The patient is clinically stable and hemodynamically stable. No respiratory distress. Adequate swallow without any risk of aspiration. Chest x-ray from today showing increased incisional markings bilaterally, could be a component of fluid overload. Meanwhile, the patient is on no pressors. She is afebrile. She is on oxygen at 3 L. Blood work from today shows a sodium level of 142, BUN of 56 with a creatinine of 2.98 and a creatinine remained stable with a potassium level of 5 and a serum bicarb of 18. Serum cortisol 15. TSH is at 2.5. No hypothermia. The patient remains on Du[facility]Neb [facility], she remains on aspirin 81 mg p.o. daily combination with Plavix. She is on IV iron. She is covered empirically with IV Zosyn. She is on Seroquel 150 mg p.o. twice a day. Agitation is adequately controlled. 08/31/2023, the patient continues to have episodes of agitation. Overnight, the patient was quite restless and agitated. She had to be placed on Precedex. In itially at 0.8 mcg later on dropped down to 0.4 mcg and she is quite sedated at this point in time and the medication will be discontinued patient remains on 3 L of oxygen by nasal cannula. Moving all 4 extremities. Arousable and seems to be much comfortable this morning. Fluid balance is -1.9 L over the past 24 hours and the patient has responded to diuretics. Electrolytes are all stable with a BUN of 56 and a creatinine of 2.6 and a sodium is at 144, WBC count is at 7.3 with a hemoglobin 9.1. Remains on Seroquel 150 mg p.o. twice daily. Remains on IV Lasix 40 mg every 12 hours with a negative fluid balance. Remains on aspirin and Plavix. Rest of the medications are essentially unchanged for now. IV fluids are currently at KVO. 09/01/2023, the patient is much more comfortable. Awake and alert and communicating on low-dose Precedex at 0.2 mcg/kg/h. She is also on Seroquel. No significant agitation. Communicating moving all 4 extremities other than limitation. She is on 3 L of oxygen by nasal cannula. No respiratory distress. White cell count of 9.8 with a hemoglobin 8.6, BUN is 55 with a creatinine of 2.7. Fluid balance over the past 24 hours is -3 L. She is being diuresed with IV Lasix and she is currently on 40 mg IV every 12 hours. No focal neurological deficits. Will continue Reevaluate today on 09/02/2023, patient remains in the ICU, remains agitated, re stless, patient is receiving Seroquel, she is also on Zyprexa, her Seroquel dose is 150 twice daily, today I added Ativan 0.5 mg every 2 hours as needed. Patient was extubated on 08/24, she had intermittent episodes of supraventricular tachycardia, being addressed by cardiology patient is confused and encephalopathic. WBC count today is 7.4 hemoglobin 8.8 basic metabolic profile is normal BUN is 52 creatinine 2.55, steadily improving. Remains on IV Lasix, patient is nonoliguric, her mentation seems to be the major issue with significant encephalopathy and confusion Reevaluate today on 09/03/2023, patient remains in the ICU, still requiring Ativan intermittently and she is on Seroquel, patient is more calm and relaxed today, although she does have. Of agitation and restlessness. Continues to have a sitter at bedside. Patient is not requiring any Precedex, hence I plan to transfer the patient out to a cardiac floor with monitor. CBC is normal except for hemoglobin of 8.1 electrolytes are normal BUN is 54 creatinine 2.33, steadily improving compared to creatinine over the last few days Objective - Vital Signs Vital signs: Vital Signs Temp 98.1 F 09/03/23 08:00 Pulse 95 09/03/23 09:00 Resp 17 09/03/23 09:00 BP 119/50 09/03/23 09:00 Pulse Ox 95 09/03/23 09:44 FiO2 3 09/02/23 04:00 Intake & Output 09/02/23 09/03/23 09/03/23 18:59 06:59 18:59 Intake Total 250 155 170 Output Total 1470 2125 325 Balance -1219 Intake: IV 250 155 70 Normal Saline Carrier @ 50 55 20 5mL/hr Piperacillin-Tazobactam 3 100 100 50 .375 gm In Sodium Chloride 0.9% 100 ml @ 25 mls/hr IVPB Q12HR [facility] Rx #:[id number] Sodium Ferric Gluconat- 100 Sucrose 125 mg In Sodium Chloride 0.9% 100 ml @ 100 mls/hr IVPB DAILY [facility] Rx#:[id number] Oral 100 Output: Urine 1470 2125 325 Other: Voiding Method Indwelling Catheter Indwelling Catheter Indwelling Catheter ABP, PAP, CO, CI - Last Documented Arterial Blood Pressure 125/73 - Exam PHYSICAL EXAMINATION General: Reveals a 58-year-old female, [place] today, not as restless as she was yesterday. HEENT: Pupils are round and equally reacting to light. EOMI. CARDIOVASCULAR: S1 and S2 present. No murmurs, rubs, or gallops Pulmonary: Diminished breath sound bilaterally no crackles rhonchi or wheezes ABDOMEN: Soft, nontender, nondistended, normoactive bowel sounds. No palpable organomegaly. MUSCULOSKELETAL: No joint swelling or deformity. EXTREMITIES: No cyanosis, clubbing, bilateral pedal edema NEUROLOGICAL: Patient is confused, encephalopathic, otherwise no gross focal neurologic deficits. Psychiatric: Could not assess for SKIN: Patient has stage III decubitus ulcer - Labs CBC & Chem 7: 09/03/23 05:44 09/03/23 05:44 Labs: Abnormal Lab Results - Last 24 Hours (Table) 09/03/23 09/03/23 09/03/23 Range/Units 05:44 05:44 11:59 RBC 2.77 L (3.80-5.40) m/uL Hgb 8.1 L (11.4-16.0) gm/dL Hct 26.0 L (34.0-46.0) % RDW 18.8 H (11.5-15.5) % Chloride 111 H (98-107) mmol/L BUN 54 H (7-17) mg/dL Creatinine 2.33 H (0.52-1.04) mg/dL POC Glucose (mg/dL) 148 H (70-110) mg/dL Calcium 8.3 L (8.4-10.2) mg/dL Assessment and Plan Assessment: Impression: Cardiopulmonary arrest x 2 Acute hypoxic respiratory failure requiring intubation and mechanical ventilation extubated on 08/24, presently on room air. Acute hypoxic encephalopathy related to cardiac arrest History of diastolic congestive heart failure History of underlying coronary artery disease and successful stenting of proximal RCA Status post non-ST elevation myocardial infarction Stage III chronic kidney disease Right heel pressure ulcer stage III Subacute fracture of medial and lateral malleolus patient is requiring a soft cast in the right lower extremity History of underlying COPD History of peripheral neuropathy Dyslipidemia Type 2 diabetes Recommendation: Continue Seroquel at 150 twice daily Added Ativan 0.5 mg every 2 hours as needed Continue intermittent Lasix Continue to monitor renal functioning, being followed by nephrology Continue IV Zosyn for cellulitis. Continue subcu heparin for DVT prophylaxis Continue Imdur and Norvasc and Lipitor as well as Plavix and aspirin Transfer patient to a monitored bed and selective Will continue to follow Time with Patient: Less than 30
--- NOTE | 2023-09-03 14:00 | P.PN ---
Subjective Progress Note Date: 09/03/23 I am following up with patient and have seen her last on 08/25/2023 then was under care of Dr. Elmore, Please refer to Dr. Elmore's notes for further details. She is some what agitated and restless. She is pending to have MRI Brain. Objective - Vital Signs Vital signs: Vital Signs Temp 98.1 F 09/03/23 08:00 Pulse 95 09/03/23 09:00 Resp 17 09/03/23 09:00 BP 119/50 09/03/23 09:00 Pulse Ox 95 09/03/23 09:44 FiO2 3 09/02/23 04:00 Intake & Output 09/02/23 09/03/23 09/03/23 18:59 06:59 18:59 Intake Total 250 155 170 Output Total 1470 2125 325 Balance -1219 Intake: IV 250 155 70 Normal Saline Carrier @ 50 55 20 5mL/hr Piperacillin-Tazobactam 3 100 100 50 .375 gm In Sodium Chloride 0.9% 100 ml @ 25 mls/hr IVPB Q12HR [facility] Rx #:[id number] Sodium Ferric Gluconat- 100 Sucrose 125 mg In Sodium Chloride 0.9% 100 ml @ 100 mls/hr IVPB DAILY [facility] Rx#:[id number] Oral 100 Output: Urine 1470 2125 325 Other: Voiding Method Indwelling Catheter Indwelling Catheter Indwelling Catheter ABP, PAP, CO, CI - Last Documented Arterial Blood Pressure 125/73 - Exam General: Lying in bed and does not appear in acute distress. Appear somewhat agitated and restless. Neuro: Limited. Is drowsy but briefly awakeable to voice. She correctly stated the current ye ar. She is mumbling and hard to understand her. No facial weakness. Is moving bilateral uppers above gravity. Has cast on right lower and moves the left lower extremity above gravity. Some of the work-up during this hospital visit consisted of: Is hypotensive. 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 Initial wbc is 9.2K and currently is 13.8K Today troponin is 1.010 and on presentation was normal. AST is 468 and ALT is 286 and on presentation was normal. Creatnine is trending up on this admission. glucose is normal. Repeat U/a appear positive acute UTi. TSH: 2.[address] head is reported as not acute intracranial process. I personally reviewed CT and agree with report. 2D echo: It is reported as increased right vent systolic function. Routine EEG: Is abnormal. The background slowing is suggestive of severe encephalopathy. There is no focal slowing, epileptiform discharges or seizure on the EEG. - Labs CBC & Chem 7: 09/03/23 05:44 09/03/23 05:44 Labs: Abnormal Lab Results - Last 24 Hours (Table) 09/03/23 09/03/23 09/03/23 Range/Units 05:44 05:44 11:59 RBC 2.77 L (3.80-5.40) m/uL Hgb 8.1 L (11.4-16.0) gm/dL Hct 26.0 L (34.0-46.0) % RDW 18.8 H (11.5-15.5) % Chloride 111 H (98-107) mmol/L BUN 54 H (7-17) mg/dL Creatinine 2.33 H (0.52-1.04) mg/dL POC Glucose (mg/dL) 148 H (70-110) mg/dL Calcium 8.3 L (8.4-10.2) mg/dL Assessment and Plan Assessment: This is a 57 y/o woman with significant cardiac issues who was admitted on 08/19/2023 for right heel wound. Today she had two cardiopulmonary arrest at 4ish am and 6:30am and lasting each about 6 minutes per nurse. It seems the patient was bradycardiac then had asystole then on second had PEA. She curr ently has elevated troponin, was hypotensive. Cardiopumonary arrest X2 with ROSC. Possible cardiac especially with significant cardiac history. Encephalopathy and appears anoxic encephalopathy due to above. Also has metabolic encephalopathy and underlying UTI. CT head is unremarkable. EEG 2 is severe encephalopathy but no seizure----mentation is improving --improving but today is more confused. Elevated troponin Hypotensive and on Norepinephrine Acute UTI Elevated LFT CKI Hx of ischemic cardiomyopathy Hx of congestive heart failure Hx of severe pulmonary HTN Ongoing DM and recent HBA1c is 12.1 Hx Peripheral neuropathy Hx of HTN Hx of hyperlipidemia Plan: Patient will be continued on ASA, Plavix and Lipitor 40 mg daily Repeat EEG 08/29/2023 was abnormal due to background slowing of mild to moderate degree. This is suggestive of generalized cerebral dysfunction as can be seen with toxic metabolic encephalopathy or related to diffuse structural brain abnormality. Clinical correlation recommended. No epileptiform activity was seen. When compared to the previous EEG from 08/23/2023, the background has remarkably improved. Repeat CT head 08/28/2023 was again normal. No acute process. For hoarse voice, consider ENT consultation. Await MRI brain, rule out CVA. Cardiology is on board I.D. is on board. Patient currently on Zosyn. Neprhology is on board DVT prophylaxis: Heparin 5000 units subcu every 12 hours. For agitation, patient started on Seroquel 150 mg twice daily. Will defer the rest of medical management to primary team and other specialists. Time with Patient: Less than 30
--- NOTE | 2023-09-03 15:34 | P.PN ---
Subjective History of Present Illness: The patient is a 57-year-old female with known history of hypertension, hyperlipidemia, diabetes mellitus as well as a history of coronary disease status post stenting of the RCA and chronic kidney disease who presented with dyspnea and had a cardiopulmonary arrest requiring CPR and mechanical ventilation. She is extubated, complaining of chest wall tenderness post CPR. She continues to be in sinus mechanism and hemodynamically stable. She had some bradycardia earlier and was started on IV dopamine. She is in sinus mechanism with no further bradycardia. Her urinary output has been stable. Her initial echo on presentation showed a preserved systolic function subsequently was found to have cardiomyopathy but that was done shortly after the event. She has a subacute fracture of the medial and lateral malleolus on the right side. August 26: The patient is sedated, she was quite agitated during the night. She had few episodes of sinus bradycardia, brief. She had no evidence of high-grade AV block. Her urinary output is stable. Her blood pressure is under good control without any vasopressors. Her repeat echocardiogram showed a preserved systolic function. She has been evaluated by neurology for possible anoxic encephalopathy. August 1: The patient is awake, confused. In sinus mechanism with no further episodes of high-grade AV block. Her blood pressure is stable. Her urinary output stable. There is no evidence of atrial fibrillation or ventricular ectopic activity. Repeat echocardiogram showed a normal left ventricle systolic function. August 28: The patient is sedated. She was agitated and confused during the night. She had no further episodes of bradycardia arrhythmia. Her blood pressure has been stable. She continues to be intubated. She is undergoing an EEG to evaluate her neurological status. There is no evidence of atrial fibrillation or ventricular tachyarrhythmia. August 29: The patient is more awake continues to have some episodes of confusion. She continues to be in sinus mechanism with no arrhythmia. Her EEG showed some improvement. Her urinary output has been good. Her blood pressure is stable and there is no evidence of significant hypotension. Medications: Aspirin, amlodipine 5 mg daily, Plavix 75 mg daily, insulin, Lipitor 40 mg daily, isosorbide mononitrate 30 mg daily, insulin 5/6 patient seen and examined. We were reconsulted secondary episode of SVT. Patient wound the SVT with heart rate in the 130s and 140s. She denies any chest pain other than reproducible chest pain. Denies any significant shortness breath. Metoprolol was ordered and initially refused and was given IV metoprolol however able to tolerate oral metoprolol today. 09/02 patient seen and examined. Patient remains confused. Admitting to chest pain all over. Reproducible chest pain on exam. Patient tearful and not able answer questions appropriately. No further episodes of SVT. No significant bradycardia. Physical Examination: Vitals reviewed Head: Normocephalic. Eyes: Sclerae nonicteric. Neck: Good carotid upstroke, no bruit, no jugular venous distention. Lungs: Clear anteriorly Heart: Regular rate and rhythm, S1-S2, no S3, no rub. No murmur. Abdomen: Soft , positive bowel sounds no organomegaly. Extremities: Trace edema on the left, intact distal pulses. Cast on the right lower extremity Labs: BUN 56, creatinine 2.98, potassium 5.0. Impression: 1. Status post cardiopulmonary arrest, etiology unclear. No clear evidence of acute ischemic event. 2. Status post stenting of the RCA during prior admission 3. Chronic kidney disease 4. Chest wall discomfort, stable 5. History of hyperlipidemia 6. History of hypertension 7. Bradycardia resolved 8. History of diabetes 9. Cardiomyopathy resolved 10. Anoxic encephalopathy, postarrest, improving Plan: continue with metoprolol with her episodes of SVT. No significant bradycardia noted. Continue with current supportive care, monitor kidney function and neurologic status. Prognosis guarded. No further recommendations from cardiology standpoint. Please call with any questions. Objective - Vital Signs Vital signs: Vital Signs Temp 97.7 F 09/03/23 12:00 Pulse 91 09/03/23 14:00 Resp 16 09/03/23 14:00 BP 141/73 09/03/23 12:00 Pulse Ox 98 09/03/23 14:00 FiO2 3 09/02/23 04:00 Intake & Output 09/02/23 09/03/23 09/03/23 18:59 06:59 18:59 Intake Total 250 155 220 Output Total 9418 9804 82 Balance -2447 -2674 -675 Intake: IV 250 155 120 Normal Saline Carrier @ 50 55 20 5mL/hr Piperacillin-Tazobactam 3 100 100 100 .375 gm In Sodium Chloride 0.9% 100 ml @ 25 mls/hr IVPB Q12HR [facility] Rx #:[id number] Sodium Ferric Gluconat- 100 Sucrose 125 mg In Sodium Chloride 0.9% 100 ml @ 100 mls/hr IVPB DAILY [facility] Rx#:[id number] Oral 100 Output: Urine 1470 2125 825 Other: Voiding Method Indwelling Catheter Indwelling Catheter Indwelling Catheter ABP, PAP, CO, CI - Last Documented Arterial Blood Pressure 125/73 - Labs CBC & Chem 7: 09/03/23 05:44 09/03/23 05:44 Labs: Abnormal Lab Results - Last 24 Hours (Table) 09/03/23 09/03/23 09/03/23 Range/Units 05:44 05:44 11:59 RBC 2.77 L (3.80-5.40) m/uL Hgb 8.1 L (11.4-16.0) gm/dL Hct 26.0 L (34.0-46.0) % RDW 18.8 H (11.5-15.5) % Chloride 111 H (98-107) mmol/L BUN 54 H (7-17) mg/dL Creatinine 2.33 H (0.52-1.04) mg/dL POC Glucose (mg/dL) 148 H (70-110) mg/dL Calcium 8.3 L (8.4-10.2) mg/dL
--- NOTE | 2023-09-03 20:27 | P.PN ---
Subjective Progress Note Date: 09/03/23 57-year-old female came in with complaints of shortness of breath and orthopnea found to be in congestive heart failure exacerbation patient has congestive heart failure with reduced ejection fraction in the past patient has increasing pedal edema. Patient also has an ulcer in the right foot stage III-IV which appeared to be infected we will consult wound care and infectious disease. Patient was on hemodialysis during last hospitalization her creatinine presently is 1.5 which is significantly improved patient potassium is 5.5, patient is on Entresto and Aldactone Aldactone will be held Entresto will be continued since she is receiving IV Lasix and expecting her potassium to improve if it does not improve or get worse then Entresto need to be discontinued as well. Patient has hypervolemic hyponatremia and hyperglycemia. 08/21/2023 Was evaluated today on the medical floor. Patient was continued on IV Lasix overnight however she was no longer reporting any shortness of breath and her lower extremity edema has improved. She was taken off of the Lasix at this time due to increased creatinine up to 2.31 additionally potassium remains elevated at 5.7. Echocardiogram comes back showing an improved ejection fraction of 60 to 65% because of this and also the hyperkalemia patient will not be continued on entresto. Patient was evaluated by infectious disease who felt like that heel ulcer on the right side was more likely a pressure injury stage III and is recommending local wound care to continue with Aquacel. Patient is reporting significant pain to the right foot and feels like it is fractured. Upon review of the patient's chart she did have a x-ray completed of this 12 days ago ordered by her laborer/grade check Dr. Mayen. Ankle x-ray did review a mildly displaced acute distal fibular fracture. Repeat x-ray of the foot and ankle completed today does reveal a subacute fractures of the medial and lateral malleolus. The lateral malleolus fracture was seen on the patient's prior exam the medial malleolus fracture may be new in the interval and this would be considered an unstable ankle fracture. There is interval 6 mm displacement of the lateral malleolus. There is a deep soft tissue ulcer at the plantar heel with no clear radiographic findings of a contagious osteomyelitis at this time. Orthooedics was consulted for this. 08/22/2023 Patient evaluated in follow-up today resting in bed. She was taken off of the Lasix remains off at this time. Bladder scan was requested and not done yesterday to rule out urinary retention, creatinine today is increased up to 2.56. Bladder scan was done require urinary straight catheterization of 550 mL taken out. Urinalysis was sent which is significantly abnormal. Patient is also noted to have multiple genital lesions which appear wartlike she admits to not having any routine gynecological screenings for many years. She is not having any vaginal bleeding or discharge. Renal ultrasound has been ordered to rule out any obstructive uropathy. 08/23/2023 Patient is evaluated today in follow-up patient had a cardiac event with cardiac arrest chore worker around 445 AM with initial rhythm slowing asystole patient was started on CPR with ACS protocol patient did receive ROSC after 6 to 8 minutes and was transferred to the intensive care unit. Patient upon arrival to the intensive care unit had another episode of cardiac arrest patient had bradycardia while on pressors in the ICU patient was intubated following the first cardiac arrest and is currently on the mechanical ventilator 50% FiO2. Chest x-ray showing similar interstitial and patchy component airspace disease right greater than left. There is a possible trace left pleural effusion. A brain CT which shows no acute intracranial process. Blood work today shows a white blood cell count of 13.8, hemoglobin 9.5, sodium level of 135, BUN of 62, creatinine of 2.76. AST ALT and alk phosphatase are significantly elevated consistent with a shock liver. TSH 3.310. Urinalysis is abnormal. Her urine culture is showing gram-negative bacilli patient is covered for the urinary tract infection as well as aspiration with IV Zosyn being managed by infectious disease. Patient is currently sedated with propofol and did require vasopressor support with Levophed which has been weaned at this time. Will discontinue the gabapentin patient is continued on aspirin Plavix and statin has been placed on hold. There is concern for possible arrhythmia precipitating the asystole additionally we need to rule out embolism and a D-dimer has been ordered. 08/24/2023 Patient is seen in follow-up today continues in the ICU on mechanical ventilation. FiO2 is 50% although titrating and was just placed at 40% with a PEEP of 5. Chest x-ray today shows that the ET tube is 7 mm from the sonam suggesting a pulled back 2 cm and reassess and also suspected underlying vascular congestion. Neuro is following and per nursing staff patient is following some simple commands and undergoing sedation holidays. Patient noted to have reduced EF of 30 to 35% and cardiology had been following. Will reconsult and appreciate input and recommendations. patient did have dialysis catheter removed and sent for cultures which are pending. Infectious disease following and patient is maintained on antibiotic. D-dimer is elevated above 16 and will attempt to obtain a VQ scan.57-year-old female came in with complaints of shortness of breath and orthopnea found to be in congestive heart failure exacerbation patient has congestive heart failure with reduced ejection fraction in the past patient has increasing pedal edema. Patient also has an ulcer in the right foot stage III-IV which appeared to be infected we will consult wound care and infectious disease. Patient was on hemodialysis during last hospitalization her creatinine presently is 1.5 which is significantly improved patient potassium is 5.5, patient is on Entresto and Aldactone Aldactone will be held Entresto will be continued since she is receiving IV Lasix and expecting her potassium to improve if it does not improve or get worse then Entresto need to be discontinued as well. Patient has hypervolemic hyponatremia and hyperglycemia. 08/21/2023 Was evaluated today on the medical floor. Patient was continued on IV Lasix overnight however she was no longer reporting any shortness of breath and her lower extremity edema has improved. She was taken off of the Lasix at this time due to increased creatinine up to 2.31 additionally potassium remains elevated at 5.7. Echocardiogram comes back showing an improved ejection fraction of 60 to 65% because of this and also the hyperkalemia patient will not be continued on entresto. Patient was evaluated by infectious disease who felt like that heel ulcer on the right side was more likely a pressure injury stage III and is recommending local wound care to continue with Aquacel. Patient is reporting significant pain to the right foot and feels like it is fractured. Upon review of the patient's chart she did have a x-ray completed of this 12 days ago ordered by her laborer/grade check Dr. Mayen. Ankle x-ray did review a mildly displaced acute distal fibular fracture. Repeat x-ray of the foot and ankle completed today does reveal a subacute fractures of the medial and lateral malleolus. The lateral malleolus fracture was seen on the patient's prior exam the medial malleolus fracture may be new in the interval and this would be considered an unstable ankle fracture. There is interval 6 mm displacement of the lateral malleolus. There is a deep soft tissue ulcer at the plantar heel with no clear radiographic findings of a contagious osteomyelitis at this time. Orthooedics was consulted for this. 08/22/2023 Patient evaluated in follow-up today resting in bed. She was taken off of the Lasix remains off at this time. Bladder scan was requested and not done yesterday to rule out urinary retention, creatinine today is increased up to 2.56. Bladder scan was done require urinary straight catheterization of 550 mL taken out. Urinalysis was sent which is significantly abnormal. Patient is also noted to have multiple genital lesions which appear wartlike she admits to not having any routine gynecological screenings for many years. She is not having any vaginal bleeding or discharge. Renal ultrasound has been ordered to rule out any obstructive uropathy. 08/23/2023 Patient is evaluated today in follow-up patient had a cardiac event with cardiac arrest chore worker around 445 AM with initial rhythm slowing asystole patient was started on CPR with ACS protocol patient did receive ROSC after 6 to 8 minutes and was transferred to the intensive care unit. Patient upon arrival to the intensive care unit had another episode of cardiac arrest patient had bradycardia while on pressors in the ICU patient was intubated following the first cardiac arrest and is currently on the mechanical ventilator 50% FiO2. Chest x-ray showing similar interstitial and patchy component airspace disease right greater than left. There is a possible trace left pleural effusion. A brain CT which shows no acute intracranial process. Blood work today shows a white blood cell count of 13.8, hemoglobin 9.5, sodium level of 135, BUN of 62, creatinine of 2.76. AST ALT and alk phosphatase are significantly elevated consistent with a shock liver. TSH 3.310. Urinalysis is abnormal. Her urine culture is showing gram-negative bacilli patient is covered for the urinary tract infection as well as aspiration with IV Zosyn being managed by infectious disease. Patient is currently sedated with propofol and did require vasopressor support with Levophed which has been weaned at this time. Will discontinue the gabapentin patient is continued on aspirin Plavix and statin has been placed on hold. There is concern for possible arrhythmia precipitating the asystole additionally we need to rule out embolism and a D-dimer has been ordered. 08/24/2023 Patient is seen in follow-up today continues in the ICU on mechanical ventil ation. FiO2 is 50% although titrating and was just placed at 40% with a PEEP of 5. Chest x-ray today shows that the ET tube is 7 mm from the sonam suggesting a pulled back 2 cm and reassess and also suspected underlying vascular congestion. Neuro is following and per nursing staff patient is following some simple commands and undergoing sedation holidays. Patient noted to have reduced EF of 30 to 35% and cardiology had been following. Will reconsult and appreciate input and recommendations. patient did have dialysis catheter removed and sent for cultures which are pending. Infectious disease following and patient is maintained on antibiotic. D-dimer is elevated above 16 and will atte mpt to obtain a VQ scan. 08/25/23 : Patient seen and evaluated at bedside, patient extubated around noon, transition to 5 L of oxygen to nasal cannula. Family at bedside, blood work reviewed hemoglobin 10.3, serum chemistry reviewed sodium 140 potassium 4.8 BUN 57 creatinine 2.49 calcium of 7. 08/26/23 : Patient seen and evaluated at bedside, patient remains in medical ICU, does complain of chest pain from CPR. Patient has been weaned off dopamine, cardiology following, blood work reviewed, hemoglobin 8.5 platelet count of 217, serum chemistry shows sodium 141 BUN 51 creatinine 2.28. Followed up by nephrology as well MARYLOU secondary to ATN continue to monitor intake and output 08/27/23: Patient seen and evaluated bedside, on evaluation patient is disoriented, patient is drowsy however likely having acute delirium. Seen by cardiology echocardiogram shows preserved ejection fraction continue with current medical management, patient on Precedex for acute delirium, continue to remain on oxygen supplementation with nasal cannula blood work reviewed CBC showed WBC 8.2 hemoglobin 8.6 serum chemistry showed creatinine of 2.22. Patient remains delirious, daughter at bedside all questions answered 08/28/2023 Patient was agitated earlier requiring Seroquel and Placed on Precedex because she was has risk to self and others Currently when I saw the patient she was sleepy However she is not tachypneic show does not look in pain. Vitals are stable She is saturating 91% on 2 L oxygen via nasal cannula She remains on Zosyn for pneumonia and UTI She is on normal saline at 50 mL/h 08/29/2023 Patient remains sleepy, she still has some encephalopathy But she is on Precedex which will be tapered off by pulmonary team today to assess her mentation as well. Patient has been followed by neurology for suspected anoxic brain injury after her cardiac arrest and return of circulation on 08/22. There is no evidence of seizure-like activity She has catheter tip infection with culture growing Corynebacterium species and she is currently covered with Zosyn which also help for her right heel pressure ulcer and aspiration pneumonia and UTI. Cardiology evaluated the patient and there is no clear evidence for her cardiac arrest although she has history of coronary artery disease and previous stents. Currently with no chest pain. She remains on aspirin and Plavix, gentle hydration, IV steroids 08/30/2023 Today her sedation remains off however patient mentation not completely resolved, it is somewhat better as she was more sleepy yesterday She is eating okay, swallowing is fine She was started on IV Lasix twice daily per associate loan officer. She has good urine output and normal send discontinued She is hemodynamically stable and oxygenation is acceptable Remains on aspirin and Plavix and Seroquel 08/31/23: Seen and evaluated at bedside, patient remains on 4 L of oxygen, blood work reviewed, WBC 7.3 hemoglobin 9.1 platelet count of 203 glucose 119. CBC reviewed showed WBC 7.3 hemoglobin 9.1 platelet count of 203.. Neurology consulted and following. Patient is awake and alert able to answer questions and follow commands sister at bedside all questions answered 09/01/23: Seen and evaluated at bedside, patient vitals reviewed, serum chemistry reviewed sodium 145 potassium 4.6 creatinine 2.71, CBC reviewed patient remains on IV Zosyn , appreciate input from nephrology continue patient on IV Lasix, delirium persist 09/02/23: Patient seen and evaluated bedside, patient been admitted for cardiopulmonary arrest, respiratory failure s/p extubation on nasal cannula however continues to remain delirious. Blood work reviewed hemoglobin 8.8, platelet count 226, serum chemistry reviewed creatinine 2.55 potassium 4.5. MRI brain has been ordered which is pending, patient remains disoriented 09/03/2023 Patient is seen in follow-up status post recent extubation maintained on a few liters of pulmonary beaver trapper following closely. Cardiology following as well and adjusted medications recommending continuing with current medication regimen. No change in mentation as patient continues with periods of confusion and restlessness. Medications being adjusted and Ativan as needed has been added. Continue Seroquel. Patient will answer questions appropriately and discuss her health history and can recall her doctors names but will ramble on regarding something irrelevant during conversation. Patient is redirectable. Patient continues with partial cast noted on the lower extremity. Patient continues on IV Lasix and kidney functions are improving nephrology following closely. Plan is for patient to possibly move out of the ICU. Will have PT/OT therapy evaluate the patient and discuss further with consultations along with case management regarding possible ECF versus discharge planning. Review of systems: Constitutional: No reports of fatigue, fever, or chills Cardiovascular: No reports of chest pain or palpitations Respiratory: reports of shortness of breath no cough GI: No reports of nausea, vomiting, or diarrhea, denies abdominal pain and tolerating diet : No reports of dysuria or retention Neurovascular: reports of generalized weakness All medications have been reviewed PHYSICAL EXAMINATION: GENERAL: The patient is on nasal cannula, disoriented, alert however oriented x 1 HEENT: Pupils are round and equally reacting to light. EOMI. CARDIOVASCULAR: S1 and S2 muffled PULMONARY: Decreased breath sounds bilaterally ABDOMEN: Soft, nontender, nondistended, normoactive bowel sounds. No palpable organomegaly. MUSCULOSKELETAL: No joint swelling or deformity. EXTREMITIES: Right lower extremity bandage with partial cast noted NEUROLOGICAL: pupils reactive unable to assess sedated SKIN: Patient has right plantar surface ulcer on the posterior foot stage III-IV with areas of necrotic tissue Assessment: * Asystole/cardiopulmonary arrest x 2 with CPR/ROSC * Respiratory failure requiring intubation s/p extubation 08/25/2023 * Acute metabolic encephalopathy * Congestive heart failure with systolic dysfunction acute on chronic exacerbation * Ischemic cardiomyopathy with improved EF * Acute kidney injury secondary to ATN on chronic kidney disease stage III * Urinary tract infection with E. coli * Subacute fracture of the medial and lateral malleolus, orthopedics following * Right heel stage III pressure injury continue local wound care with aquacel ID following. * Genital lesions, will need field artillery operations specialist follow up outpatient for routine screenings * Hypertension * Hyperlipidemia * Type 2 diabetes mellitus uncontrolled hgb a1c 12.1 * Severe pulmonary hypertension * COPD without any acute exacerbation * Peripheral neuropathy * Obesity with a body mass index of 30.8 * GI prophylaxis * DVT prophylaxis * Full code Plan: * Patient continues to remain critically ill, was intubated s/p extubation, weaned off to nasal cannula 4 L. Patient is in the ICU although is being considered to transfer out to the stepdown unit once a bed is available. Patient has been tolerating weaning FiO2. * In regards to acute encephalopathy likely post ICU delirium, neurology following and will continue with frequent reorientation, patient is off Precedex, CT head negative for acute intracranial process EEG is abnormal with background slowing encephalopathy noted, MRI brain requested by neurology, co ntinue with status secondary to disorientation * In regards to urinary tract infection, chronic nonhealing wound and right heel, urine cultures grew E. coli. Patient treated with IV antibiotic receiv ed IV Zosyn, end date determined by infectious disease. Will discuss with infectious disease regarding continued antibiotic therapy * In regards to aspiration pneumonia,, continue patient on IV Zosyn managed by infectious disease * In regards to cardiomyopathy patient weaned off pressor support, dopamine weaned off as well, continue current medications including aspirin, Plavix, cardiology following continue IV Lasix nephrology following, kidney function is improving * In regards to suspicion for pulm embolism venous ultrasound lower extremity ordered no evidence of DVT noted on subcu heparin for DVT prophylaxis * In regards to diabetes mellitus continue monitoring Accu-Cheks before meals and at bedtime, continue sliding scale and will adjust accordingly * Will discuss with case management/social work regarding discharge planning and will need PT/OT therapy evaluation to discuss overall treatment plan moving forward. * Due to multiple complex medical issues, prognosis is guarded The impression and plan of care has been dictated by Mouna Rowley, Nurse Practitioner as directed. Dr. Katarzyna MD I have performed a history and examination and MDM of this patient, discussed the same with the dictator, and agree with the dictator's assessment and plan as written ,documented as a scribe. Based on total visit time, I have performed more than 50% of the visit. Objective - Vital Signs Vital signs: Vital Signs Temp 97.2 F L 09/03/23 04:00 Pulse 89 09/03/23 07:00 Resp 13 09/03/23 07:00 BP 171/69 09/03/23 07:00 Pulse Ox 98 09/03/23 07:00 FiO2 3 09/02/23 04:00 Intake & Output 09/02/23 09/03/23 09/03/23 18:59 06:59 18:59 Intake Total 250 155 5 Output Total 1470 2125 75 Balance -1219 Intake: IV 250 155 5 Normal Saline Carrier @ 50 55 5 5mL/hr Piperacillin-Tazobactam 3 100 100 .375 gm In Sodium Chloride 0.9% 100 ml @ 25 mls/hr IVPB Q12HR [facility] Rx #:[id number] Sodium Ferric Gluconat- 100 Sucrose 125 mg In Sodium Chloride 0.9% 100 ml @ 100 mls/hr IVPB DAILY [facility] Rx#:[id number] Output: Urine 1475 75 Other: Voiding Method Indwelling Catheter Indwelling Catheter ABP, PAP, CO, CI - Last Documented Arterial Blood Pressure 125/73 - Labs CBC & Chem 7: 09/03/23 05:44 09/03/23 05:44 Labs: Abnormal Lab Results - Last 24 Hours (Table) 09/03/23 09/03/23 Range/Units 05:44 05:44 RBC 2.77 L (3.80-5.40) m/uL Hgb 8.1 L (11.4-16.0) gm/dL Hct 26.0 L (34.0-46.0) % RDW 18.8 H (11.5-15.5) % Chloride 111 H (98-107) mmol/L BUN 54 H (7-17) mg/dL Creatinine 2.33 H (0.52-1.04) mg/dL Calcium 8.3 L (8.4-10.2) mg/dL
[2023-09-04 01:14] LABS: Glucose,Whole Blood 206 mg/dL (70-110)
[2023-09-04 09:19] LABS: Glucose,Whole Blood 118 mg/dL (70-110)
[2023-09-04 10:53] LABS: Anisocytosis Slight; HCT 20.7 % (34.0-46.0); Hypochromasia Marked; MCH 29.7 pg (25.0-35.0); MCHC 31.5 g/dL (31.0-37.0); MCV 94.1 fL (80.0-100.0); Macrocytosis Slight; Mean Platelet Volume 9.1; Platelet Count 261 k/uL (150-450); RDW 19.9 % (11.5-15.5); WBC 7.4 k/uL (3.8-10.6)
[2023-09-04 11:11] LABS: ALT 30 U/L (4-34); AST 21 U/L (14-36); African American GFR (CKD) 30 (>60 ml/min/1.73 sqM); Albumin 2.3 g/dL (3.5-5.0); Alkaline Phosphatase 196 U/L (38-126); Anion Gap 6 mmol/L; Blood Urea Nitrogen 67 mg/dL (7-17); Calcium 8.2 mg/dL (8.4-10.2); Carbon Dioxide 29 mmol/L (22-30); Chloride 112 mmol/L (98-107); Glucose 107 mg/dL (74-99); Non-African American GFR(CKD) 26 (>60 ml/min/1.73 sqM); Potassium 4.4 mmol/L (3.5-5.1); Sodium 147 mmol/L (137-145); Total Bilirubin 0.3 mg/dL (0.2-1.3); Total Protein 5.5 g/dL (6.3-8.2)
[2023-09-04 11:21] LABS: HGB 6.5 gm/dL (11.4-16.0)
--- NOTE | 2023-09-04 11:22 | P.PN ---
Subjective Progress Note Date: 09/04/23 Principal diagnosis: Cardiopulmonary arrest x 2 This is a 57-year-old female who was admitted back on August 18, for a right heel wound. Early this morning, the patient had a cardiopulmonary arrest. The patient apparently was initially found to be bradycardic, and then had asystole. She received 3 rounds of epinephrine. She arrived to the intensive care unit this morning at 630, having been intubated on the floor by anesthesia. In the ICU, the patient had an episode of pulseless electrical activity, and asystole, and received 2 rounds of epinephrine, a dose of atropine, and some sodium bicarbonate. I came into the intensive care unit this morning, early, to place a left internal jugular triple-lumen catheter, and a right femoral arterial line. Currently, the patient is on volume assist-control, rate 16, tidal volume 400, FiO2 50%, PEEP of 5. The most recent blood gases show pO2 of 75, pCO2 49, pH is 7.44. Arterial blood gases shortly after intubation showed a pO2 of 268, pCO2 of 38, and a pH of 7.25. The patient is currently on norepinephrine at 1.4 mcg/min, and saline at 50 cc an hour. Current labs include a white count 13.8, hemoglobin 9.5, hematocrit 31, and a platelet count of 257,000. PT was 12.9 with an INR of 1.2. Sodium 135, potassium 4.9, chlorides 111, CO2 19, anion gap 5, BUN 62, creatinine 2.76. The patient's AST is 468. ALT is 286. Albumin is 2.1. Urine, is suspicious for possible infection. Brain CT Today, Shows No Acute Intracranial Process. Chest x-ray shows bilateral patchy airspace disease, right greater than left. 08/30/2023, the patient is being seen for a follow-up. Remains encephalopathic, speech at times is garbled. Follows commands. She is not consistently having a conversation. A repeat CAT scan of the brain was done on 08/28/2023 and the findings showed no acute abnormalities. EEG was also done on 08/29/2023 and it showed abnormal slowing and mild to moderate degree of encephalopathy with generalized cerebral dysfunction. The patient is clinically stable and hemodynamically stable. No respiratory distress. Adequate swallow without any risk of aspiration. Chest x-ray from today showing increased incisional markings bilaterally, could be a component of fluid overload. Meanwhile, the patient is on no pressors. She is afebrile. She is on oxygen at 3 L. Blood work from today shows a sodium level of 142, BUN of 56 with a creatinine of 2.98 and a creatinine remained stable with a potassium level of 5 and a serum bicarb of 18. Serum cortisol 15. TSH is at 2.5. No hypothermia. The patient remains [facility], she remains on aspirin 81 mg p.o. daily combination with Plavix. She is on IV iron. She is covered empirically with IV Zosyn. She is on Seroquel 150 mg p.o. twice a day. Agitation is adequately controlled. 08/31/2023, the patient continues to have episodes of agitation. Overnight, the patient was quite restless and agitated. She had to be placed on Precedex. In itially at 0.8 mcg later on dropped down to 0.4 mcg and she is quite sedated at this point in time and the medication will be discontinued patient remains on 3 L of oxygen by nasal cannula. Moving all 4 extremities. Arousable and seems to be much comfortable this morning. Fluid balance is -1.9 L over the past 24 hours and the patient has responded to diuretics. Electrolytes are all stable with a BUN of 56 and a creatinine of 2.6 and a sodium is at 144, WBC count is at 7.3 with a hemoglobin 9.1. Remains on Seroquel 150 mg p.o. twice daily. Remains on IV Lasix 40 mg every 12 hours with a negative fluid balance. Remains on aspirin and Plavix. Rest of the medications are essentially unchanged for now. IV fluids are currently at KVO. 09/01/2023, the patient is much more comfortable. Awake and alert and communicating on low-dose Precedex at 0.2 mcg/kg/h. She is also on Seroquel. No significant agitation. Communicating moving all 4 extremities other than limitation. She is on 3 L of oxygen by nasal cannula. No respiratory distress. White cell count of 9.8 with a hemoglobin 8.6, BUN is 55 with a creatinine of 2.7. Fluid balance over the past 24 hours is -3 L. She is being diuresed with IV Lasix and she is currently on 40 mg IV every 12 hours. No focal neurological deficits. Will continue Reevaluate today on 09/02/2023, patient remains in the ICU, remains agitated, re stless, patient is receiving Seroquel, she is also on Zyprexa, her Seroquel dose is 150 twice daily, today I added Ativan 0.5 mg every 2 hours as needed. Patient was extubated on 08/24, she had intermittent episodes of supraventricular tachycardia, being addressed by cardiology patient is confused and encephalopathic. WBC count today is 7.4 hemoglobin 8.8 basic metabolic profile is normal BUN is 52 creatinine 2.55, steadily improving. Remains on IV Lasix, patient is nonoliguric, her mentation seems to be the major issue with significant encephalopathy and confusion Reevaluate today on 09/03/2023, patient remains in the ICU, still requiring Ativan intermittently and she is on Seroquel, patient is more calm and relaxed today, although she does have. Of agitation and restlessness. Continues to have a sitter at bedside. Patient is not requiring any Precedex, hence I plan to transfer the patient out to a cardiac floor with monitor. CBC is normal except for hemoglobin of 8.1 electrolytes are normal BUN is 54 creatinine 2.33, steadily improving compared to creatinine over the last few days Reevaluated today on 09/04/2023, patient is about the same, remains in the ICU as an overflow, patient has intermittent episodes of agitation and restlessness, remains on Seroquel, remains on Ativan as needed, patient is requiring intermittent medications for sedation, she is not requiring any more Precedex. Patient has a bedside sitter, and she needs almost constant attention. Labs including CBC and basic metabolic profile are normal BUN however is 67 creatinine 2.04 Objective - Vital Signs Vital signs: Vital Signs Temp 98.2 F 09/04/23 03:56 Pulse 85 09/04/23 03:56 Resp 18 09/03/23 20:00 BP 108/62 09/04/23 03:56 Pulse Ox 94 L 09/04/23 08:21 FiO2 3 09/02/23 04:00 Intake & Output 09/03/23 09/04/23 09/04/23 18:59 06:59 18:59 Intake Total 220 100 100 Output Total 1325 843 475 Balance -8481 -047 -944 Weight 79 kg Intake: IV 120 100 100 Normal Saline Carrier @ 20 100 5mL/hr Piperacillin-Tazobactam 3 100 100 .375 gm In Sodium Chloride 0.9% 100 ml @ 25 mls/hr IVPB Q12HR [facility] Rx #:[id number] Oral 100 Output: Urine 1325 850 475 Other: Voiding Method Indwelling Catheter Indwelling Catheter ABP, PAP, CO, CI - Last Documented Arterial Blood Pressure 125/73 - Exam PHYSICAL EXAMINATION General: Reveals a 58-year-old female, intermittently restless and agitated, confused, encephalopathic HEENT: Pupils are round and equally reacting to light. EOMI. CARDIOVASCULAR: S1 and S2 present. No murmurs, rubs, or gallops Pulmonary: Diminished breath sound bilaterally no crackles rhonchi or wheezes ABDOMEN: Soft, nontender, nondistended, normoactive bowel sounds. No palpable o rganomegaly. MUSCULOSKELETAL: No joint swelling or deformity. EXTREMITIES: No cyanosis, clubbing, bilateral pedal edema NEUROLOGICAL: Patient is confused, encephalopathic, otherwise no gross focal ne urologic deficits. Psychiatric: Could not assess for SKIN: Patient has stage III decubitus ulcer - Labs CBC & Chem 7: 09/03/23 05:44 09/04/23 10:05 Labs: Abnormal Lab Results - Last 24 Hours (Table) 09/03/23 09/04/23 09/04/23 Range/Units 11:59 01:12 09:15 Sodium (137-145) mmol/L Chloride (98-107) mmol/L BUN (7-17) mg/dL Creatinine (0.52-1.04) mg/dL Glucose (74-99) mg/dL POC Glucose (mg/dL) 148 H 206 H 118 H (70-110) mg/dL Calcium (8.4-10.2) mg/dL Alkaline Phosphatase (38-126) U/L Total Protein (6.3-8.2) g/dL Albumin (3.5-5.0) g/dL 09/04/23 Range/Units 10:05 Sodium 147 H (137-145) mmol/L Chloride 112 H (98-107) mmol/L BUN 67 H (7-17) mg/dL Creatinine 2.04 H (0.52-1.04) mg/dL Glucose 107 H (74-99) mg/dL POC Glucose (mg/dL) (70-110) mg/dL Calcium 8.2 L (8.4-10.2) mg/dL Alkaline Phosphatase 196 H (38-126) U/L Total Protein 5.5 L (6.3-8.2) g/dL Albumin 2.3 L (3.5-5.0) g/dL Assessment and Plan Assessment: Impression: Cardiopulmonary arrest x 2 Acute hypoxic respiratory failure requiring intubation and mechanical ventilation extubated on 08/24, presently on room air. Acute hypoxic encephalopathy related to cardiac arrest History of diastolic congestive heart failure History of underlying coronary artery disease and successful stenting of proximal RCA Status post non-ST elevation myocardial infarction Stage III chronic kidney disease Right heel pressure ulcer stage III Subacute fracture of medial and lateral malleolus patient is requiring a soft cast in the right lower extremity History of underlying COPD History of peripheral neuropathy Dyslipidemia Type 2 diabetes Recommendation: Continue Seroquel at 150 twice daily Added Ativan 0.5 mg every 2 hours as needed Cut down on diuretics. Continue to monitor renal functioning, being followed by nephrology Continue IV Zosyn for cellulitis. Continue subcu heparin for DVT prophylaxis Continue Imdur and Norvasc and Lipitor as well as Plavix and aspirin Patient remains as an overflow in the ICU, will transfer to a monitored bed once a bed is available Will continue to follow Time with Patient: Less than 30
--- NOTE | 2023-09-04 11:35 | P.PN ---
Subjective Patient is seen in follow-up for acute kidney injury. Renal function improving. On IV Lasix. Nonoliguric. Sitter present at bedside. Mentation better. Sodium 147. Vital signs are stable. General: Resting in bed. HEENT: On nasal cannula. LUNGS: No audible rhonchi or wheezes. HEART: Rate and Rhythm are regular. ABDOMEN: No distention. EXTREMITITES: 1+ edema. Objective - Vital Signs Vital signs: Vital Signs Temp 98.2 F 09/04/23 03:56 Pulse 85 09/04/23 03:56 Resp 18 09/03/23 20:00 BP 108/62 09/04/23 03:56 Pulse Ox 94 L 09/04/23 08:21 FiO2 3 09/02/23 04:00 Intake & Output 09/03/23 09/04/23 09/04/23 18:59 06:59 18:59 Intake Total 220 100 100 Output Total 1325 850 475 Balance -1105 -750 -375 Weight 79 kg 79 kg Intake: IV 120 100 100 Normal Saline Carrier @ 20 100 5mL/hr Piperacillin-Tazobactam 3 100 100 .375 gm In Sodium Chloride 0.9% 100 ml @ 25 mls/hr IVPB Q12HR [facility] Rx #:[id number] Oral 100 Output: Urine 1325 850 475 Other: Voiding Method Indwelling Catheter Indwelling Catheter ABP, PAP, CO, CI - Last Documented Arterial Blood Pressure 125/73 - Labs CBC & Chem 7: 09/04/23 10:05 09/04/23 10:05 Labs: Abnormal Lab Results - Last 24 Hours (Table) 09/03/23 09/04/23 09/04/23 Range/Units 11:59 01:12 09:15 RBC (3.80-5.40) m/uL Hgb (11.4-16.0) gm/dL Hct (34.0-46.0) % RDW (11.5-15.5) % Sodium (137-145) mmol/L Chloride (98-107) mmol/L BUN (7-17) mg/dL Creatinine (0.52-1.04) mg/dL Glucose (74-99) mg/dL POC Glucose (mg/dL) 148 H 206 H 118 H (70-110) mg/dL Calcium (8.4-10.2) mg/dL Alkaline Phosphatase (38-126) U/L Total Protein (6.3-8.2) g/dL Albumin (3.5-5.0) g/dL 09/04/23 09/04/23 Range/Units 10:05 10:05 RBC 2.20 L (3.80-5.40) m/uL Hgb 6.5 L* D (11.4-16.0) gm/dL Hct 20.7 L (34.0-46.0) % RDW 19.9 H (11.5-15.5) % Sodium 147 H (137-145) mmol/L Chloride 112 H (98-107) mmol/L BUN 67 H (7-17) mg/dL Creatinine 2.04 H (0.52-1.04) mg/dL Glucose 107 H (74-99) mg/dL POC Glucose (mg/dL) (70-110) mg/dL Calcium 8.2 L (8.4-10.2) mg/dL Alkaline Phosphatase 196 H (38-126) U/L Total Protein 5.5 L (6.3-8.2) g/dL Albumin 2.3 L (3.5-5.0) g/dL Assessment and Plan Plan: Assessment: 1. Acute kidney injury on chronic kidney disease secondary to ATN secondary to cardiorenal syndrome and cardiac arrest. Creatinine 1.5 admission and peaked at 2.98 this admission -2.04 today. Patient was on hemodialysis in the past with last treatment being July 02, 2023. 2. Volume overload. Improving with diuresis. 3. Acute on chronic diastolic CHF. 4. Diabetes mellitus. 5. Right foot wound. 6. Coronary disease with cardiac stenting. 7. Status post PEA arrest with concern for anoxic encephalopathy. 8. Septic shock with urine culture positive for E. coli and catheter tip culture positive for Corynebacterium. On antibiotics. Off vasopressors. 9. Metabolic acidosis secondary to acute kidney injury and IV fluids. On oral bicarb. Improved. 10. Anemia. Iron deficiency noted. Status post IV iron. On Aranesp. Hemoglobin 6.5 today. 11. Hypernatremia from lack of oral water intake and free water diuresis. Plan: Maintain IV Lasix. Encouraged oral intake, including free water as able to tolerate. Start D5W. Avoid nephrotoxins. Continue to monitor renal function and urine output. Blood transfusion to be given today.
[2023-09-04 11:43] LABS: Glucose,Whole Blood 142 mg/dL (70-110)
[2023-09-04] MEDS: DEXTROSE 5% IN WATER 1,000 ML IV SCH (11:53)
--- NOTE | 2023-09-04 11:55 | P.PN ---
Subjective Progress Note Date: 09/04/23 I am following-up with patient and per nursing staff is about the same. She had Ativan earlier per sitter. She continues to be confused and some restlessness. Objective - Vital Signs Vital signs: Vital Signs Temp 98.2 F 09/04/23 03:56 Pulse 85 09/04/23 03:56 Resp 18 09/03/23 20:00 BP 108/62 09/04/23 03:56 Pulse Ox 94 L 09/04/23 08:21 FiO2 3 09/02/23 04:00 Intake & Output 09/03/23 09/04/23 09/04/23 18:59 06:59 18:59 Intake Total 220 100 100 Output Total 1325 850 475 Balance -1105 -750 -375 Weight 79 kg 79 kg Intake: IV 120 100 100 Normal Saline Carrier @ 20 100 5mL/hr Piperacillin-Tazobactam 3 100 100 .375 gm In Sodium Chloride 0.9% 100 ml @ 25 mls/hr IVPB Q12HR [facility] Rx #:[id number] Oral 100 Output: Urine 1325 850 475 Other: Voiding Method Indwelling Catheter Indwelling Catheter ABP, PAP, CO, CI - Last Documented Arterial Blood Pressure 125/73 - Exam General: Lying in bed and does not appear in acute distress. Appear somewhat agitated and restless. Neuro: Limited. Had ativan earlier Is drowsy but briefly awakeable to voice. She is mumbling and hard to understand her. No facial weakness. Is moving bilateral uppers above gravity. Has cast on right lower and moves the left lower extremity above gravity. Some of the work-up during this hospital visit consisted of: Is hypotensive. 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 Initial wbc is 9.2K and currently is 13.8K Today troponin is 1.010 and on presentation was normal. AST is 468 and ALT is 286 and on presentation was normal. Creatnine is trending up on this admission. glucose is normal. Repeat U/a appear positive acute UTi. TSH: 2.[address] head is reported as not acute intracranial process. I personally reviewed CT and agree with report. 2D echo: It is reported as increased right vent systolic function. Routine EEG: Is abnormal. The background slowing is suggestive of severe encephalopathy. There is no focal slowing, epileptiform discharges or seizure on the EEG. - Labs CBC & Chem 7: 09/04/23 10:05 09/04/23 10:05 Labs: Abnormal Lab Results - Last 24 Hours (Table) 09/03/23 09/04/23 09/04/23 Range/Units 11:59 01:12 09:15 RBC (3.80-5.40) m/uL Hgb (11.4-16.0) gm/dL Hct (34.0-46.0) % RDW (11.5-15.5) % Sodium (137-145) mmol/L Chloride (98-107) mmol/L BUN (7-17) mg/dL Creatinine (0.52-1.04) mg/dL Glucose (74-99) mg/dL POC Glucose (mg/dL) 148 H 206 H 118 H (70-110) mg/dL Calcium (8.4-10.2) mg/dL Alkaline Phosphatase (38-126) U/L Total Protein (6.3-8.2) g/dL Albumin (3.5-5.0) g/dL 09/04/23 09/04/23 09/04/23 Range/Units 10:05 10:05 11:41 RBC 2.20 L (3.80-5.40) m/uL Hgb 6.5 L* D (11.4-16.0) gm/dL Hct 20.7 L (34.0-46.0) % RDW 19.9 H (11.5-15.5) % Sodium 147 H (137-145) mmol/L Chloride 112 H (98-107) mmol/L BUN 67 H (7-17) mg/dL Creatinine 2.04 H (0.52-1.04) mg/dL Glucose 107 H (74-99) mg/dL POC Glucose (mg/dL) 142 H (70-110) mg/dL Calcium 8.2 L (8.4-10.2) mg/dL Alkaline Phosphatase 196 H (38-126) U/L Total Protein 5.5 L (6.3-8.2) g/dL Albumin 2.3 L (3.5-5.0) g/dL Assessment and Plan Assessment: This is a 57 y/o woman with significant cardiac issues who was admitted on 08/19/2023 for right heel wound. Today she had two cardiopulmonary arrest at 4ish am and 6:30am and lasting each about 6 minutes per nurse. It seems the patient was bradycardiac then had asystole then on second had PEA. She currently has elevated troponin, was hypotensive. Cardiopumonary arrest X2 with ROSC. Possible cardiac especially with sign ificant cardiac history. Encephalopathy and appears anoxic encephalopathy due to above. Also has me tabolic encephalopathy and underlying UTI. CT head is unremarkable. EEG 2 is severe encephalopathy but no seizure----mentation is improving --improving but today is more confused. Elevated troponin Hypotensive and on Norepinephrine Acute UTI Elevated LFT CKI Hx of ischemic cardiomyopathy Hx of congestive heart failure Hx of severe pulmonary HTN Ongoing DM and recent HBA1c is 12.1 Hx Peripheral neuropathy Hx of HTN Hx of hyperlipidemia Plan: Patient will be continued on ASA, Plavix and Lipitor 40 mg daily Repeat EEG 08/29/2023 was abnormal due to background slowing of mild to moderate degree. This is suggestive of generalized cerebral dysfunction as can be seen with toxic metabolic encephalopathy or related to diffuse structural brain abnormality. Clinical correlation recommended. No epileptiform activity was seen. When compared to the previous EEG from 08/23/2023, the background has remarkably improved. Repeat CT head 08/28/2023 was again normal. No acute process. For hoarse voice, consider ENT consultation. Await MRI brain, rule out CVA. Patient has anemia and will defer management to primary team. Cardiology is on board I.D. is on board. Patient currently on Zosyn. Neprhology is on board DVT prophylaxis: Heparin 5000 units subcu every 12 hours. For agitation, patient started on Seroquel 150 mg twice daily. Will defer the rest of medical management to primary team and other specialists. Time with Patient: Less than 30
[2023-09-04 14:03] LABS: Eosinophils # (M) 0.67 k/uL (0-0.7); Lymphocytes # (M) 0.67 k/uL (1.0-4.8); Monocytes # (M) 0.52 k/uL (0-1.0); Myelocytes # (M) 0.15 k/uL (0); Myelocytes % 2 %; Neutrophils # (M) 5.48 k/uL (1.3-7.7); Neutrophils % (M) 74 %; Nucleated Red Blood Cells 0 /100 WBC (0-0); Total Cells Counted 200
[2023-09-04 14:04] LABS: Polychromasia Present
[2023-09-04 16:45] LABS: Glucose,Whole Blood 145 mg/dL (70-110)
[2023-09-04 20:26] LABS: Glucose,Whole Blood 141 mg/dL (70-110)
--- NOTE | 2023-09-05 06:43 | P.PN ---
Subjective Progress Note Date: 09/04/23 57-year-old female came in with complaints of shortness of breath and orthopnea found to be in congestive heart failure exacerbation patient has congestive heart failure with reduced ejection fraction in the past patient has increasing pedal edema. Patient also has an ulcer in the right foot stage III-IV which appeared to be infected we will consult wound care and infectious disease. Patient was on hemodialysis during last hospitalization her creatinine presently is 1.5 which is significantly improved patient potassium is 5.5, patient is on Entresto and Aldactone Aldactone will be held Entresto will be continued since she is receiving IV Lasix and expecting her potassium to improve if it does not improve or get worse then Entresto need to be discontinued as well. Patient has hypervolemic hyponatremia and hyperglycemia. 08/21/2023 Was evaluated today on the medical floor. Patient was continued on IV Lasix overnight however she was no longer reporting any shortness of breath and her lower extremity edema has improved. She was taken off of the Lasix at this time due to increased creatinine up to 2.31 additionally potassium remains elevated at 5.7. Echocardiogram comes back showing an improved ejection fraction of 60 to 65% because of this and also the hyperkalemia patient will not be continued on entresto. Patient was evaluated by infectious disease who felt like that heel ulcer on the right side was more likely a pressure injury stage III and is recommending local wound care to continue with Aquacel. Patient is reporting significant pain to the right foot and feels like it is fractured. Upon review of the patient's chart she did have a x-ray completed of this 12 days ago ordered by her baffle mounter Dr. Mayen. Ankle x-ray did review a mildly displaced acute distal fibular fracture. Repeat x-ray of the foot and ankle completed today does reveal a subacute fractures of the medial and lateral malleolus. The lateral malleolus fracture was seen on the patient's prior exam the medial malleolus fracture may be new in the interval and this would be considered an unstable ankle fracture. There is interval 6 mm displacement of the lateral malleolus. There is a deep soft tissue ulcer at the plantar heel with no clear radiographic findings of a contagious osteomyelitis at this time. Orthooedics was consulted for this. 08/22/2023 Patient evaluated in follow-up today resting in bed. She was taken off of the Lasix remains off at this time. Bladder scan was requested and not done yesterday to rule out urinary retention, creatinine today is increased up to 2.56. Bladder scan was done require urinary straight catheterization of 550 mL taken out. Urinalysis was sent which is significantly abnormal. Patient is also noted to have multiple genital lesions which appear wartlike she admits to not having any routine gynecological screenings for many years. She is not having any vaginal bleeding or discharge. Renal ultrasound has been ordered to rule out any obstructive uropathy. 08/23/2023 Patient is evaluated today in follow-up patient had a cardiac event with cardiac arrest plugger around 445 AM with initial rhythm slowing asystole patient was started on CPR with ACS protocol patient did receive ROSC after 6 to 8 minutes and was transferred to the intensive care unit. Patient upon arrival to the intensive care unit had another episode of cardiac arrest patient had bradycardia while on pressors in the ICU patient was intubated following the first cardiac arrest and is currently on the mechanical ventilator 50% FiO2. Chest x-ray showing similar interstitial and patchy component airspace disease right greater than left. There is a possible trace left pleural effusion. A brain CT which shows no acute intracranial process. Blood work today shows a white blood cell count of 13.8, hemoglobin 9.5, sodium level of 135, BUN of 62, creatinine of 2.76. AST ALT and alk phosphatase are significantly elevated consistent with a shock liver. TSH 3.310. Urinalysis is abnormal. Her urine culture is showing gram-negative bacilli patient is covered for the urinary tract infection as well as aspiration with IV Zosyn being managed by infectious disease. Patient is currently sedated with propofol and did require vasopressor support with Levophed which has been weaned at this time. Will discontinue the gabapentin patient is continued on aspirin Plavix and statin has been placed on hold. There is concern for possible arrhythmia precipitating the asystole additionally we need to rule out embolism and a D-dimer has been ordered. 08/24/2023 Patient is seen in follow-up today continues in the ICU on mechanical ventilation. FiO2 is 50% although titrating and was just placed at 40% with a PEEP of 5. Chest x-ray today shows that the ET tube is 7 mm from the sonam suggesting a pulled back 2 cm and reassess and also suspected underlying vascular congestion. Neuro is following and per nursing staff patient is following some simple commands and undergoing sedation holidays. Patient noted to have reduced EF of 30 to 35% and cardiology had been following. Will reconsult and appreciate input and recommendations. patient did have dialysis catheter removed and sent for cultures which are pending. Infectious disease following and patient is maintained on antibiotic. D-dimer is elevated above 16 and will attempt to obtain a VQ scan.57-year-old female came in with complaints of shortness of breath and orthopnea found to be in congestive heart failure exacerbation patient has congestive heart failure with reduced ejection fraction in the past patient has increasing pedal edema. Patient also has an ulcer in the right foot stage III-IV which appeared to be infected we will consult wound care and infectious disease. Patient was on hemodialysis during last hospitalization her creatinine presently is 1.5 which is significantly improved patient potassium is 5.5, patient is on Entresto and Aldactone Aldactone will be held Entresto will be continued since she is receiving IV Lasix and expecting her potassium to improve if it does not improve or get worse then Entresto need to be discontinued as well. Patient has hypervolemic hyponatremia and hyperglycemia. 08/21/2023 Was evaluated today on the medical floor. Patient was continued on IV Lasix overnight however she was no longer reporting any shortness of breath and her lower extremity edema has improved. She was taken off of the Lasix at this time due to increased creatinine up to 2.31 additionally potassium remains elevated at 5.7. Echocardiogram comes back showing an improved ejection fraction of 60 to 65% because of this and also the hyperkalemia patient will not be continued on entresto. Patient was evaluated by infectious disease who felt like that heel ulcer on the right side was more likely a pressure injury stage III and is recommending local wound care to continue with Aquacel. Patient is reporting significant pain to the right foot and feels like it is fractured. Upon review of the patient's chart she did have a x-ray completed of this 12 days ago ordered by her baffle mounter Dr. Mayen. Ankle x-ray did review a mildly displaced acute distal fibular fracture. Repeat x-ray of the foot and ankle completed today does reveal a subacute fractures of the medial and lateral malleolus. The lateral malleolus fracture was seen on the patient's prior exam the medial malleolus fracture may be new in the interval and this would be considered an unstable ankle fracture. There is interval 6 mm displacement of the lateral malleolus. There is a deep soft tissue ulcer at the plantar heel with no clear radiographic findings of a contagious osteomyelitis at this time. Orthooedics was consulted for this. 08/22/2023 Patient evaluated in follow-up today resting in bed. She was taken off of the Lasix remains off at this time. Bladder scan was requested and not done yesterday to rule out urinary retention, creatinine today is increased up to 2.56. Bladder scan was done require urinary straight catheterization of 550 mL taken out. Urinalysis was sent which is significantly abnormal. Patient is also noted to have multiple genital lesions which appear wartlike she admits to not having any routine gynecological screenings for many years. She is not having any vaginal bleeding or discharge. Renal ultrasound has been ordered to rule out any obstructive uropathy. 08/23/2023 Patient is evaluated today in follow-up patient had a cardiac event with cardiac arrest plugger around 445 AM with initial rhythm slowing asystole patient was started on CPR with ACS protocol patient did receive ROSC after 6 to 8 minutes and was transferred to the intensive care unit. Patient upon arrival to the intensive care unit had another episode of cardiac arrest patient had bradycardia while on pressors in the ICU patient was intubated following the first cardiac arrest and is currently on the mechanical ventilator 50% FiO2. Chest x-ray showing similar interstitial and patchy component airspace disease right greater than left. There is a possible trace left pleural effusion. A brain CT which shows no acute intracranial process. Blood work today shows a white blood cell count of 13.8, hemoglobin 9.5, sodium level of 135, BUN of 62, creatinine of 2.76. AST ALT and alk phosphatase are significantly elevated consistent with a shock liver. TSH 3.310. Urinalysis is abnormal. Her urine culture is showing gram-negative bacilli patient is covered for the urinary tract infection as well as aspiration with IV Zosyn being managed by infectious disease. Patient is currently sedated with propofol and did require vasopressor support with Levophed which has been weaned at this time. Will discontinue the gabapentin patient is continued on aspirin Plavix and statin has been placed on hold. There is concern for possible arrhythmia precipitating the asystole additionally we need to rule out embolism and a D-dimer has been ordered. 08/24/2023 Patient is seen in follow-up today continues in the ICU on mechanical ventil ation. FiO2 is 50% although titrating and was just placed at 40% with a PEEP of 5. Chest x-ray today shows that the ET tube is 7 mm from the sonam suggesting a pulled back 2 cm and reassess and also suspected underlying vascular congestion. Neuro is following and per nursing staff patient is following some simple commands and undergoing sedation holidays. Patient noted to have reduced EF of 30 to 35% and cardiology had been following. Will reconsult and appreciate input and recommendations. patient did have dialysis catheter removed and sent for cultures which are pending. Infectious disease following and patient is maintained on antibiotic. D-dimer is elevated above 16 and will atte mpt to obtain a VQ scan. 08/25/23 : Patient seen and evaluated at bedside, patient extubated around noon, transition to 5 L of oxygen to nasal cannula. Family at bedside, blood work reviewed hemoglobin 10.3, serum chemistry reviewed sodium 140 potassium 4.8 BUN 57 creatinine 2.49 calcium of 7. 08/26/23 : Patient seen and evaluated at bedside, patient remains in medical ICU, does complain of chest pain from CPR. Patient has been weaned off dopamine, cardiology following, blood work reviewed, hemoglobin 8.5 platelet count of 217, serum chemistry shows sodium 141 BUN 51 creatinine 2.28. Followed up by nephrology as well MARYLOU secondary to ATN continue to monitor intake and output 08/27/23: Patient seen and evaluated bedside, on evaluation patient is disoriented, patient is drowsy however likely having acute delirium. Seen by cardiology echocardiogram shows preserved ejection fraction continue with current medical management, patient on Precedex for acute delirium, continue to remain on oxygen supplementation with nasal cannula blood work reviewed CBC showed WBC 8.2 hemoglobin 8.6 serum chemistry showed creatinine of 2.22. Patient remains delirious, daughter at bedside all questions answered 08/28/2023 Patient was agitated earlier requiring Seroquel and Placed on Precedex because she was has risk to self and others Currently when I saw the patient she was sleepy However she is not tachypneic show does not look in pain. Vitals are stable She is saturating 91% on 2 L oxygen via nasal cannula She remains on Zosyn for pneumonia and UTI She is on normal saline at 50 mL/h 08/29/2023 Patient remains sleepy, she still has some encephalopathy But she is on Precedex which will be tapered off by pulmonary team today to assess her mentation as well. Patient has been followed by neurology for suspected anoxic brain injury after her cardiac arrest and return of circulation on 08/22. There is no evidence of seizure-like activity She has catheter tip infection with culture growing Corynebacterium species and she is currently covered with Zosyn which also help for her right heel pressure ulcer and aspiration pneumonia and UTI. Cardiology evaluated the patient and there is no clear evidence for her cardiac arrest although she has history of coronary artery disease and previous stents. Currently with no chest pain. She remains on aspirin and Plavix, gentle hydration, IV steroids 08/30/2023 Today her sedation remains off however patient mentation not completely resolved, it is somewhat better as she was more sleepy yesterday She is eating okay, swallowing is fine She was started on IV Lasix twice daily per migration agent. She has good urine output and normal send discontinued She is hemodynamically stable and oxygenation is acceptable Remains on aspirin and Plavix and Seroquel 08/31/23: Seen and evaluated at bedside, patient remains on 4 L of oxygen, blood work reviewed, WBC 7.3 hemoglobin 9.1 platelet count of 203 glucose 119. CBC reviewed showed WBC 7.3 hemoglobin 9.1 platelet count of 203.. Neurology consulted and following. Patient is awake and alert able to answer questions and follow commands sister at bedside all questions answered 09/01/23: Seen and evaluated at bedside, patient vitals reviewed, serum chemistry reviewed sodium 145 potassium 4.6 creatinine 2.71, CBC reviewed patient remains on IV Zosyn , appreciate input from nephrology continue patient on IV Lasix, delirium persist 09/02/23: Patient seen and evaluated bedside, patient been admitted for cardiopulmonary arrest, respiratory failure s/p extubation on nasal cannula however continues to remain delirious. Blood work reviewed hemoglobin 8.8, platelet count 226, serum chemistry reviewed creatinine 2.55 potassium 4.5. MRI brain has been ordered which is pending, patient remains disoriented 09/03/2023 Patient is seen in follow-up status post recent extubation maintained on a few liters of pulmonary remote recruiter following closely. Cardiology following as well and adjusted medications recommending continuing with current medication regimen. No change in mentation as patient continues with periods of confusion and restlessness. Medications being adjusted and Ativan as needed has been added. Continue Seroquel. Patient will answer questions appropriately and discuss her health history and can recall her doctors names but will ramble on regarding something irrelevant during conversation. Patient is redirectable. Patient continues with partial cast noted on the lower extremity. Patient continues on IV Lasix and kidney functions are improving nephrology following closely. Plan is for patient to possibly move out of the ICU. Will have PT/OT therapy evaluate the patient and discuss further with consultations along with case management regarding possible ECF versus discharge planning. 09/04/2023 Patient seen in follow-up today and continues to have periods of confusion and restlessness. Patient continues in the ICU with multiple medical consultations following. Hemoglobin was found to be less than 7 today and will transfuse 1 unit of PRBC. Sodium 147 and recommend repeat labs as well. Nephrology is following and patient is continued on IV Lasix. MRI of the brain remains pending and neurology is following. Review of systems: Constitutional: No reports of fatigue, fever, or chills Cardiovascular: No reports of chest pain or palpitations Respiratory: reports of shortness of breath no cough GI: No reports of nausea, vomiting, or diarrhea, denies abdominal pain and tolerating diet : No reports of dysuria or retention Neurovascular: reports of generalized weakness All medications have been reviewed PHYSICAL EXAMINATION: GENERAL: The patient is on nasal cannula, disoriented, alert however oriented x 1 HEENT: Pupils are round and equally reacting to light. EOMI. CARDIOVASCULAR: S1 and S2 muffled PULMONARY: Decreased breath sounds bilaterally ABDOMEN: Soft, nontender, nondistended, normoactive bowel sounds. No palpable organomegaly. MUSCULOSKELETAL: No joint swelling or deformity. EXTREMITIES: Right lower extremity bandage with partial cast noted NEUROLOGICAL: pupils reactive unable to assess sedated SKIN: Patient has right plantar surface ulcer on the posterior foot stage III-IV with areas of necrotic tissue Assessment: * Asystole/cardiopulmonary arrest x 2 with CPR/ROSC * Respiratory failure requiring intubation s/p extubation 08/25/2023 * Acute metabolic encephalopathy * Congestive heart failure with systolic dysfunction acute on chronic exacerbation * Ischemic cardiomyopathy with improved EF * Acute kidney injury secondary to ATN on chronic kidney disease stage III * Urinary tract infection with E. coli * Subacute fracture of the medial and lateral malleolus, orthopedics following * Right heel stage III pressure injury continue local wound care with aquacel ID following. * Genital lesions, will need bellstand attendant follow up outpatient for routine screenings * Hypertension * Hyperlipidemia * Type 2 diabetes mellitus uncontrolled hgb a1c 12.1 * Severe pulmonary hypertension * COPD without any acute exacerbation * Peripheral neuropathy * Obesity with a body mass index of 30.8 * GI prophylaxis * DVT prophylaxis * Full code Plan: * Patient continues to remain critically ill, was intubated s/p extubation, weaned off to nasal cannula 4 L. Patient is in the ICU although is being considered to transfer out to the stepdown unit once a bed is available. Patient has been tolerating weaning FiO2. Patient was found to have no oxygen on exam she continues to take it off. gantry crane operator at bedside * In regards to acute encephalopathy likely post ICU delirium, neurology following and will continue with frequent reorientation, patient is off Precedex, CT head negative for acute intracranial process EEG is abnormal with background slowing encephalopathy noted, MRI brain requested by neurology, continue with status secondary to disorientation * Hemoglobin was noted to be 6.9 today and will transfuse 1 unit of PRBC and recommend follow-up labs. No active bleeding noted. * In regards to urinary tract infection, chronic nonhealing wound and right heel, urine cultures grew E. coli. Patient treated with IV antibiotic received IV Zosyn, end date determined by infectious disease. Will discuss with infectious disease regarding continued antibiotic therapy * In regards to aspiration pneumonia,, continue patient on IV Zosyn managed by infectious disease * In regards to cardiomyopathy patient weaned off pressor support, dopamine weaned off as well, continue current medications including aspirin, Plavix, cardiology following continue IV Lasix nephrology following, kidney function is improving although sodium is slightly elevated at 147 * In regards to suspicion for pulm embolism venous ultrasound lower extremity ordered no evidence of DVT noted on subcu heparin for DVT prophylaxis * In regards to diabetes mellitus continue monitoring Accu-Cheks before meals and at bedtime, continue sliding scale and will adjust accordingly * Will discuss with case management/social work regarding discharge planning and will need PT/OT therapy evaluation to discuss overall treatment plan moving forward. * Due to multiple complex medical issues, prognosis is guarded The impression and plan of care has been dictated by Mouna Rowley, Nurse Practitioner as directed. Dr. Katarzyna MD I have performed a history and examination and MDM of this patient, discussed the same with the dictator, and agree with the dictator's assessment and plan as written ,documented as a scribe. Based on total visit time, I have performed more than 50% of the visit. Objective - Vital Signs Vital signs: Vital Signs Temp 98.2 F 09/04/23 03:56 Pulse 85 09/04/23 03:56 Resp 18 09/03/23 20:00 BP 108/62 09/04/23 03:56 Pulse Ox 94 L 09/04/23 08:21 FiO2 3 09/02/23 04:00 Intake & Output 09/03/23 09/04/23 09/04/23 18:59 06:59 18:59 Intake Total 220 100 Output Total 1325 850 Balance -1105 -750 Weight 79 kg Intake: IV 120 100 Normal Saline Carrier @ 20 100 5mL/hr Piperacillin-Tazobactam 3 100 .375 gm In Sodium Chloride 0.9% 100 ml @ 25 mls/hr IV[facility] Q12HR [facility] Rx #:[id number] Oral 100 Output: Urine 1325 850 Other: Voiding Method Indwelling Catheter Indwelling Catheter ABP, PAP, CO, CI - Last Documented Arterial Blood Pressure 125/73 - Labs CBC & Chem 7: 09/04/23 10:05 09/04/23 10:05 Labs: Abnormal Lab Results - Last 24 Hours (Table) 09/03/23 09/04/23 09/04/23 Range/Units 11:59 01:12 09:15 POC Glucose (mg/dL) 148 H 206 H 118 H (70-110) mg/dL
[2023-09-05 07:31] LABS: Glucose,Whole Blood 154 mg/dL (70-110)
[2023-09-05 07:59] LABS: Anisocytosis Slight; Basophils # (A) 0.1 k/uL (0-0.2); Basophils % (A) 1 %; Eosinophils # (A) 0.4 k/uL (0-0.7); Eosinophils % (A) 7 %; HCT 23.2 % (34.0-46.0); HGB 7.3 gm/dL (11.4-16.0); Hypochromasia Moderate; Lymphocytes # (A) 0.8 k/uL (1.0-4.8); Lymphocytes % (A) 12 %; MCH 29.7 pg (25.0-35.0); MCHC 31.3 g/dL (31.0-37.0); MCV 94.8 fL (80.0-100.0); Macrocytosis Slight; Mean Platelet Volume 8.7; Monocytes # (A) 0.4 k/uL (0-1.0); Monocytes % (A) 7 %; Neutrophils # (A) 4.6 k/uL (1.3-7.7); Neutrophils % (A) 71 %; Platelet Count 231 k/uL (150-450); Poikilocytosis Slight; RBC 2.45 m/uL (3.80-5.40); RDW 18.8 % (11.5-15.5); WBC 6.5 k/uL (3.8-10.6)
[2023-09-05 08:21] LABS: African American GFR (CKD) 33 (>60 ml/min/1.73 sqM); Anion Gap 6 mmol/L; Blood Urea Nitrogen 57 mg/dL (7-17); Calcium 8.1 mg/dL (8.4-10.2); Carbon Dioxide 29 mmol/L (22-30); Chloride 111 mmol/L (98-107); Glucose 130 mg/dL (74-99); Magnesium 1.8 mg/dL (1.6-2.3); Non-African American GFR(CKD) 29 (>60 ml/min/1.73 sqM); Potassium 3.8 mmol/L (3.5-5.1); Sodium 146 mmol/L (137-145)
[2023-09-05] MEDS: risperiDONE 0.25 MG TAB PO SCH (10:21)
[2023-09-05] MEDS: FUROSEMIDE 10 MG/ML 4 ML VIAL IV SCH (10:28)
--- NOTE | 2023-09-05 11:15 | P.PN ---
Subjective Patient is seen in follow-up for acute kidney injury. Renal function improving. On IV Lasix. Nonoliguric. Sitter present at bedside. Mentation better. Sodium better at 146. On D5W. Vital signs are stable. General: Resting in bed. HEENT: On nasal cannula. LUNGS: No audible rhonchi or wheezes. HEART: Rate and Rhythm are regular. ABDOMEN: No distention. EXTREMITITES: 1+ edema. Objective - Vital Signs Vital signs: Vital Signs Temp 97.4 F L 09/05/23 08:00 Pulse 89 09/05/23 08:00 Resp 10 L 09/05/23 08:00 BP 140/72 09/05/23 08:00 Pulse Ox 95 09/05/23 08:41 FiO2 3 09/02/23 04:00 Intake & Output 09/04/23 09/05/23 09/05/23 18:59 06:59 18:59 Intake Total 100 1145 385 Output Total 1075 1350 900 Balance -975 -205 -515 Weight 79 kg 69.2 kg Intake: IV 100 85 385 Dextrose 5% in Water 1, 350 000 ml @ 50 mls/hr IV . Q20H [facility]IE Rx#:[id number] Normal Saline Carrier @ 85 35 5mL/hr Piperacillin-Tazobactam 3 100 .375 gm In Sodium Chloride 0.9% 100 ml @ 25 mls/hr IVPB Q12HR R[facility]IE Rx #:[id number] Intake, IV Titration 750 Amount Dextrose 5% in Water 1, 750 000 ml @ 50 mls/hr IV . Q20H RYLIE Rx#:[id number] Blood Product 0 310 Rc As-1 Unit 0 310 [id number] Output: Urine 1075 1350 900 Other: Voiding Method Indwelling Catheter Indwelling Catheter ABP, PAP, CO, CI - Last Documented Arterial Blood Pressure 125/73 - Labs CBC & Chem 7: 09/05/23 07:32 09/05/23 07:32 Labs: Abnormal Lab Results - Last 24 Hours (Table) 09/04/23 09/04/23 09/04/23 Range/Units 10:05 11:41 13:06 RBC 2.20 L (3.80-5.40) m/uL Hgb 6.5 L* D (11.4-16.0) gm/dL Hct 20.7 L (34.0-46.0) % RDW 19.9 H (11.5-15.5) % Lymphocytes # (1.0-4.8) k/uL Lymphocytes # (Manual) 0.67 L (1.0-4.8) k/uL Myelocytes # (Manual) 0.15 H (0) k/uL Sodium (137-145) mmol/L Chloride (98-107) mmol/L BUN (7-17) mg/dL Creatinine (0.52-1.04) mg/dL Glucose (74-99) mg/dL POC Glucose (mg/dL) 142 H (70-110) mg/dL Calcium (8.4-10.2) mg/dL Crossmatch See Detail 09/04/23 09/04/23 09/05/23 Range/Units 16:44 20:24 07:29 RBC (3.80-5.40) m/uL Hgb (11.4-16.0) gm/dL Hct (34.0-46.0) % RDW (11.5-15.5) % Lymphocytes # (1.0-4.8) k/uL Lymphocytes # (Manual) (1.0-4.8) k/uL Myelocytes # (Manual) (0) k/uL Sodium (137-145) mmol/L Chloride (98-107) mmol/L BUN (7-17) mg/dL Creatinine (0.52-1.04) mg/dL Glucose (74-99) mg/dL POC Glucose (mg/dL) 145 H 141 H 154 H (70-110) mg/dL Calcium (8.4-10.2) mg/dL Crossmatch 09/05/23 09/05/23 Range/Units 07:32 07:32 RBC 2.45 L (3.80-5.40) m/uL Hgb 7.3 L (11.4-16.0) gm/dL Hct 23.2 L (34.0-46.0) % RDW 18.8 H (11.5-15.5) % Lymphocytes # 0.8 L (1.0-4.8) k/uL Lymphocytes # (Manual) (1.0-4.8) k/uL Myelocytes # (Manual) (0) k/uL Sodium 146 H (137-145) mmol/L Chloride 111 H (98-107) mmol/L BUN 57 H (7-17) mg/dL Creatinine 1.89 H (0.52-1.04) mg/dL Glucose 130 H (74-99) mg/dL POC Glucose (mg/dL) (70-110) mg/dL Calcium 8.1 L (8.4-10.2) mg/dL Crossmatch Assessment and Plan Plan: Assessment: 1. Acute kidney injury on chronic kidney disease secondary to ATN secondary to cardiorenal syndrome and cardiac arrest. Creatinine 1.5 admission and peaked at 2.98 this admission - 1.89 today. Patient was on hemodialysis in the past with last treatment being July 02, 2023. 2. Volume overload. Improving with diuresis. 3. Acute on chronic diastolic CHF. 4. Diabetes mellitus. 5. Right foot wound. 6. Coronary disease with cardiac stenting. 7. Status post PEA arrest with concern for anoxic encephalopathy. 8. Septic shock with urine culture positive for E. coli and catheter tip culture positive for Corynebacterium. On antibiotics. Off vasopressors. 9. Metabolic acidosis secondary to acute kidney injury and IV fluids. On oral bicarb. Improved. 10. Anemia. Iron deficiency noted. Status post IV iron. On Aranesp. Also received blood transfusion this admission. 11. Hypernatremia from lack of oral water intake and free water diuresis. Better with D5W. Plan: Maintain IV Lasix. Frequency decreased to once daily. Encouraged oral intake, including free water as able to tolerate. Maintain D5W. Stop bicarb. Avoid nephrotoxins. Continue to monitor renal function and urine output.
[2023-09-05 11:55] LABS: Glucose,Whole Blood 104 mg/dL (70-110)
--- NOTE | 2023-09-05 12:38 | P.PN ---
Subjective Progress Note Date: 09/05/23 Principal diagnosis: Cardiopulmonary arrest x 2 This is a 57-year-old female who was admitted back on August 18, for a right heel wound. Early this morning, the patient had a cardiopulmonary arrest. The patient apparently was initially found to be bradycardic, and then had asystole. She received 3 rounds of epinephrine. She arrived to the intensive care unit this morning at 630, having been intubated on the floor by anesthesia. In the ICU, the patient had an episode of pulseless electrical activity, and asystole, and received 2 rounds of epinephrine, a dose of atropine, and some sodium bicarbonate. I came into the intensive care unit this morning, early, to place a left internal jugular triple-lumen catheter, and a right femoral arterial line. Currently, the patient is on volume assist-control, rate 16, tidal volume 400, FiO2 50%, PEEP of 5. The most recent blood gases show pO2 of 75, pCO2 49, pH is 7.44. Arterial blood gases shortly after intubation showed a pO2 of 268, pCO2 of 38, and a pH of 7.25. The patient is currently on norepinephrine at 1.4 mcg/min, and saline at 50 cc an hour. Current labs include a white count 13.8, hemoglobin 9.5, hematocrit 31, and a platelet count of 257,000. PT was 12.9 with an INR of 1.2. Sodium 135, potassium 4.9, chlorides 111, CO2 19, anion gap 5, BUN 62, creatinine 2.76. The patient's AST is 468. ALT is 286. Albumin is 2.1. Urine, is suspicious for possible infection. Brain CT Today, Shows No Acute Intracranial Process. Chest x-ray shows bilateral patchy airspace disease, right greater than left. 08/30/2023, the patient is being seen for a follow-up. Remains encephalopathic, speech at times is garbled. Follows commands. She is not consistently having a conversation. A repeat CAT scan of the brain was done on 08/28/2023 and the findings showed no acute abnormalities. EEG was also done on 08/29/2023 and it showed abnormal slowing and mild to moderate degree of encephalopathy with generalized cerebral dysfunction. The patient is clinically stable and hemodynamically stable. No respiratory distress. Adequate swallow without any risk of aspiration. Chest x-ray from today showing increased incisional markings bilaterally, could be a component of fluid overload. Meanwhile, the patient is on no pressors. She is afebrile. She is on oxygen at 3 L. Blood work from today shows a sodium level of 142, BUN of 56 with a creatinine of 2.98 and a creatinine remained stable with a potassium level of 5 and a serum bicarb of 18. Serum cortisol 15. TSH is at 2.5. No hypothermia. The patient remains on DuoNeb [facility], she remains on aspirin 81 mg p.o. daily combination with Plavix. She is on IV iron. She is covered empirically with IV Zosyn. She is on Seroquel 150 mg p.o. twice a day. Agitation is adequately controlled. 08/31/2023, the patient continues to have episodes of agitation. Overnight, the patient was quite restless and agitated. She had to be placed on Precedex. In itially at 0.8 mcg later on dropped down to 0.4 mcg and she is quite sedated at this point in time and the medication will be discontinued patient remains on 3 L of oxygen by nasal cannula. Moving all 4 extremities. Arousable and seems to be much comfortable this morning. Fluid balance is -1.9 L over the past 24 hours and the patient has responded to diuretics. Electrolytes are all stable with a BUN of 56 and a creatinine of 2.6 and a sodium is at 144, WBC count is at 7.3 with a hemoglobin 9.1. Remains on Seroquel 150 mg p.o. twice daily. Remains on IV Lasix 40 mg every 12 hours with a negative fluid balance. Remains on aspirin and Plavix. Rest of the medications are essentially unchanged for now. IV fluids are currently at KVO. 09/01/2023, the patient is much more comfortable. Awake and alert and communicating on low-dose Precedex at 0.2 mcg/kg/h. She is also on Seroquel. No significant agitation. Communicating moving all 4 extremities other than limitation. She is on 3 L of oxygen by nasal cannula. No respiratory distress. White cell count of 9.8 with a hemoglobin 8.6, BUN is 55 with a creatinine of 2.7. Fluid balance over the past 24 hours is -3 L. She is being diuresed with IV Lasix and she is currently on 40 mg IV every 12 hours. No focal neurological deficits. Will continue Reevaluate today on 09/02/2023, patient remains in the ICU, remains agitated, re stless, patient is receiving Seroquel, she is also on Zyprexa, her Seroquel dose is 150 twice daily, today I added Ativan 0.5 mg every 2 hours as needed. Patient was extubated on 08/24, she had intermittent episodes of supraventricular tachycardia, being addressed by cardiology patient is confused and encephalopathic. WBC count today is 7.4 hemoglobin 8.8 basic metabolic profile is normal BUN is 52 creatinine 2.55, steadily improving. Remains on IV Lasix, patient is nonoliguric, her mentation seems to be the major issue with significant encephalopathy and confusion Reevaluate today on 09/03/2023, patient remains in the ICU, still requiring Ativan intermittently and she is on Seroquel, patient is more calm and relaxed today, although she does have. Of agitation and restlessness. Continues to have a sitter at bedside. Patient is not requiring any Precedex, hence I plan to transfer the patient out to a cardiac floor with monitor. CBC is normal except for hemoglobin of 8.1 electrolytes are normal BUN is 54 creatinine 2.33, steadily improving compared to creatinine over the last few days Reevaluated today on 09/04/2023, patient is about the same, remains in the ICU as an overflow, patient has intermittent episodes of agitation and restlessness, remains on Seroquel, remains on Ativan as needed, patient is requiring intermittent medications for sedation, she is not requiring any more Precedex. Patient has a bedside sitter, and she needs almost constant attention. Labs including CBC and basic metabolic profile are normal BUN however is 67 creatinine 2.04 Reevaluated 09/05/2023, patient is about the same, continues to have intermittent episodes of agitation and restlessness, she is on D5W@50 mL/h she is also on Ativan 0 0.5 mg every 4 hours as needed intermittently receiving Lasix and she is on it now maintenance 40 mg IV push every 12 hours I cut it down to once a day. Continues to require sitter at bedside because of her intermittent episodes of agitations, today I added Risperdal 0.25 mg daily. WBC count is 6.5 hemoglobin 7.3 basic metabolic profile is normal BUN is 57 creatinine 1.89, improving Objective - Vital Signs Vital signs: Vital Signs Temp 97.4 F L 09/05/23 08:00 Pulse 89 09/05/23 08:00 Resp 10 L 09/05/23 08:00 BP 140/72 09/05/23 08:00 Pulse Ox 95 09/05/23 08:41 FiO2 3 09/02/23 04:00 Intake & Output 09/04/23 09/05/23 09/05/23 18:59 06:59 18:59 Intake Total 100 1145 385 Output Total 1075 1350 900 Balance -975 -205 -515 Weight 79 kg 69.2 kg Intake: IV 100 85 385 Dextrose 5% in Water 1, 350 000 ml @ 50 mls/hr IV . Q20H [facility]YLIE Rx#:[id number] Normal Saline Carrier @ 85 35 5mL/hr Piperacillin-Tazobactam 3 100 .375 gm In Sodium Chloride 0.9% 100 ml @ 25 mls/hr IVPB Q12HR RYLIE Rx #:[id number] Intake, IV Titration 750 Amount Dextrose 5% in Water 1, 750 000 ml @ 50 mls/hr IV . Q20H RYLIE Rx#:[id number] Blood Product 0 310 Rc As-1 Unit 0 310 [id number] Output: Urine 1075 1350 900 Other: Voiding Method Indwelling Catheter Indwelling Catheter ABP, PAP, CO, CI - Last Documented Arterial Blood Pressure 125/73 - Exam PHYSICAL EXAMINATION General: Reveals a 58-year-old female, in no distress, seems to be calm today. HEENT: Pupils are round and equally reacting to light. EOMI. CARDIOVASCULAR: S1 and S2 present. No murmurs, rubs, or gallops Pulmonary: Diminished breath sound bilaterally no crackles rhonchi or wheezes ABDOMEN: Soft, nontender, nondistended, normoactive bowel sounds. No palpable organomegaly. MUSCULOSKELETAL: No joint swelling or deformity. EXTREMITIES: No cyanosis, clubbing, bilateral pedal edema NEUROLOGICAL: Patient is confused,, otherwise no gross focal neurologic deficits. Psychiatric: Could not assess for SKIN: Patient has stage III decubitus ulcer - Labs CBC & Chem 7: 09/05/23 07:32 09/05/23 07:32 Labs: Abnormal Lab Results - Last 24 Hours (Table) 09/04/23 09/04/23 09/04/23 Range/Units 10:05 13:06 16:44 RBC (3.80-5.40) m/uL Hgb (11.4-16.0) gm/dL Hct (34.0-46.0) % RDW (11.5-15.5) % Lymphocytes # (1.0-4.8) k/uL Lymphocytes # (Manual) 0.67 L (1.0-4.8) k/uL Myelocytes # (Manual) 0.15 H (0) k/uL Sodium (137-145) mmol/L Chloride (98-107) mmol/L BUN (7-17) mg/dL Creatinine (0.52-1.04) mg/dL Glucose (74-99) mg/dL POC Glucose (mg/dL) 145 H (70-110) mg/dL Calcium (8.4-10.2) mg/dL Crossmatch See Detail 09/04/23 09/05/23 09/05/23 Range/Units 20:24 07:29 07:32 RBC 2.45 L (3.80-5.40) m/uL Hgb 7.3 L (11.4-16.0) gm/dL Hct 23.2 L (34.0-46.0) % RDW 18.8 H (11.5-15.5) % Lymphocytes # 0.8 L (1.0-4.8) k/uL Lymphocytes # (Manual) (1.0-4.8) k/uL Myelocytes # (Manual) (0) k/uL Sodium (137-145) mmol/L Chloride (98-107) mmol/L BUN (7-17) mg/dL Creatinine (0.52-1.04) mg/dL Glucose (74-99) mg/dL POC Glucose (mg/dL) 141 H 154 H (70-110) mg/dL Calcium (8.4-10.2) mg/dL Crossmatch 09/05/23 Range/Units 07:32 RBC (3.80-5.40) m/uL Hgb (11.4-16.0) gm/dL Hct (34.0-46.0) % RDW (11.5-15.5) % Lymphocytes # (1.0-4.8) k/uL Lymphocytes # (Manual) (1.0-4.8) k/uL Myelocytes # (Manual) (0) k/uL Sodium 146 H (137-145) mmol/L Chloride 111 H (98-107) mmol/L BUN 57 H (7-17) mg/dL Creatinine 1.89 H (0.52-1.04) mg/dL Glucose 130 H (74-99) mg/dL POC Glucose (mg/dL) (70-110) mg/dL Calcium 8.1 L (8.4-10.2) mg/dL Crossmatch Assessment and Plan Assessment: Impression: Cardiopulmonary arrest x 2 Acute hypoxic respiratory failure requiring intubation and mechanical ventilation extubated on 08/24, presently on room air. Acute hypoxic encephalopathy related to cardiac arrest History of diastolic congestive heart failure History of underlying coronary artery disease and successful stenting of proximal RCA Status post non-ST elevation myocardial infarction Stage III chronic kidney disease Right heel pressure ulcer stage III Subacute fracture of medial and lateral malleolus patient is requiring a soft cast in the right lower extremity History of underlying COPD History of peripheral neuropathy Dyslipidemia Type 2 diabetes Recommendation: Continue Seroquel at 150 twice daily Added Risperdal 0.25 mg p.o. daily Continue Ativan as needed Cut down on diuretics. To once daily Continue to monitor renal functioning, being followed by nephrology, renal status is improving Continue IV Zosyn for cellulitis. Continue subcu heparin for DVT prophylaxis Continue Imdur and Norvasc and Lipitor as well as Plavix and aspirin Will likely transfer to a monitored bed once bed is available. Will continue to follow Time with Patient: Less than 30
[2023-09-05] MEDS: POTASSIUM CHLORIDE ER 20 MEQ TAB.ER PO SCH (13:21)
[2023-09-05] MEDS: MAGNESIUM SULFATE-D5W PMX 1 GM in DEXTROSE/WATER 1 100ML.BAG IVPB ONE (13:21)
--- NOTE | 2023-09-05 14:57 | P.PN ---
Subjective Progress Note Date: 09/05/23 I am following-up with patient and per nurse, she continues to be agitated and restless. Unable to obtain MRI Brain. Objective - Vital Signs Vital signs: Vital Signs Temp 97.9 F 09/05/23 12:00 Pulse 65 09/05/23 12:00 Resp 10 L 09/05/23 12:00 BP 114/67 09/05/23 12:00 Pulse Ox 94 L 09/05/23 12:00 FiO2 3 09/02/23 04:00 Intake & Output 09/04/23 09/05/23 09/05/23 18:59 06:59 18:59 Intake Total 100 1145 385 Output Total 1075 1350 900 Balance -975 -205 -515 Weight 79 kg 69.2 kg Intake: IV 100 85 385 Dextrose 5% in Water 1, 350 000 ml @ 50 mls/hr IV . Q20H RYLIE Rx#:[id number] Normal Saline Carrier @ 85 35 5mL/hr Piperacillin-Tazobactam 3 100 .375 gm In Sodium Chloride 0.9% 100 ml @ 25 mls/hr IVPB Q12HR RYLIE Rx #:[id number] Intake, IV Titration 750 Amount Dextrose 5% in Water 1, 750 000 ml @ 50 mls/hr IV . Q20H RYLIE Rx#:[id number] Blood Product 0 310 Rc As-1 Unit 0 310 [id number] Output: Urine 1075 1350 900 Other: Voiding Method Indwelling Catheter Indwelling Catheter ABP, PAP, CO, CI - Last Documented Arterial Blood Pressure 125/73 - Exam General: Lying in bed and does not appear in acute distress. Appear somewhat agitated and restless. Neuro: Is drowsy but briefly awakeable to voice. She is mumbling and hard to understand her. No facial weakness. Is moving bilateral uppers above gravity. Has cast on right lower and moves the left lower extremity above gravity. Some of the work-up during this hospital visit consisted of: Is hypotensive. 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 Initial wbc is 9.2K and currently is 13.8K Today troponin is 1.010 and on presentation was normal. AST is 468 and ALT is 286 and on presentation was normal. Creatnine is trending up on this admission. glucose is normal. Repeat U/a appear positive acute UTi. TSH: 2.[address] head is reported as not acute intracranial process. I personally reviewed CT and agree with report. 2D echo: It is reported as increased right vent systolic function. Routine EEG: Is abnormal. The background slowing is suggestive of severe encephalopathy. There is no focal slowing, epileptiform discharges or seizure on the EEG. - Labs CBC & Chem 7: 09/05/23 07:32 09/05/23 07:32 Labs: Abnormal Lab Results - Last 24 Hours (Table) 09/04/23 09/04/23 09/04/23 Range/Units 13:06 16:44 20:24 RBC (3.80-5.40) m/uL Hgb (11.4-16.0) gm/dL Hct (34.0-46.0) % RDW (11.5-15.5) % Lymphocytes # (1.0-4.8) k/uL Sodium (137-145) mmol/L Chloride (98-107) mmol/L BUN (7-17) mg/dL Creatinine (0.52-1.04) mg/dL Glucose (74-99) mg/dL POC Glucose (mg/dL) 145 H 141 H (70-110) mg/dL Calcium (8.4-10.2) mg/dL Crossmatch See Detail 09/05/23 09/05/23 09/05/23 Range/Units 07:29 07:32 07:32 RBC 2.45 L (3.80-5.40) m/uL Hgb 7.3 L (11.4-16.0) gm/dL Hct 23.2 L (34.0-46.0) % RDW 18.8 H (11.5-15.5) % Lymphocytes # 0.8 L (1.0-4.8) k/uL Sodium 146 H (137-145) mmol/L Chloride 111 H (98-107) mmol/L BUN 57 H (7-17) mg/dL Creatinine 1.89 H (0.52-1.04) mg/dL Glucose 130 H (74-99) mg/dL POC Glucose (mg/dL) 154 H (70-110) mg/dL Calcium 8.1 L (8.4-10.2) mg/dL Crossmatch Assessment and Plan Assessment: This is a 57 y/o woman with significant cardiac issues who was admitted on 08/19/2023 for right heel wound. Today she had two cardiopulmonary arrest at 4ish am and 6:30am and lasting each about 6 minutes per nurse. It seems the patient was bradycardiac then had asystole then on second had PEA. She currently has elevated troponin, was hypotensive. Cardiopumonary arrest X2 with ROSC. Possible cardiac especially with significant cardiac history. Encephalopathy and appears anoxic encephalopathy due to above. Also has metabolic encephalopathy and underlying UTI. CT head is unremarkable. EEG 2 is severe encephalopathy but no seizure----mentation is improving --improving but today is more confused. Elevated troponin Hypotensive and on Norepinephrine Acute UTI Elevated LFT CKI Hx of ischemic cardiomyopathy Hx of congestive heart failure Hx of severe pulmonary HTN Ongoing DM and recent HBA1c is 12.1 Hx Peripheral neuropathy Hx of HTN Hx of hyperlipidemia Plan: Patient will be continued on ASA, Plavix and Lipitor 40 mg daily Repeat EEG 08/29/2023 was abnormal due to background slowing of mild to moderate degree. This is suggestive of generalized cerebral dysfunction as can be seen with toxic metabolic encephalopathy or related to diffuse structural brain abnormality. Clinical correlation recommended. No epileptiform activity was seen. When compared to the previous EEG from 08/23/2023, the background has remarkably improved. Repeat CT head 08/28/2023 was again normal. No acute process. For hoarse voice, consider ENT consultation. Await MRI brain, rule out CVA. In mean time, I will obtain a repeat CT head. Patient has anemia and will defer management to primary team. For agitation, patient started on Seroquel 150 mg twice daily. Is also on Risperdal 0.25mg daily. Cardiology is on board I.D. is on board. Patient currently on Zosyn. Neprhology is on board DVT prophylaxis: Heparin 5000 units subcu every 12 hours. Will defer the rest of medical management to primary team and other specialists. The plan is discussed with her nurse. Time with Patient: Less than 30
[2023-09-05 16:23] LABS: Glucose,Whole Blood 127 mg/dL (70-110)
--- NOTE | 2023-09-05 17:40 | P.PN ---
Subjective Progress Note Date: 09/03/23 Principal diagnosis: Reason for follow-up is right heel diabetic foot ulcer Patient is a 57-year-old female with a past medical history significant for diabetes mellitus hypertension hyperlipidemia history of renal insufficiency requiring dialysis currently not on dialysis and the patient also have a chronic nonhealing wound to the right heel area, present to the hospital with increasing shortness of breath and swelling concerning for fluid overload.Patient did have a cardiac arrest around 4 AM 08/23/2023 with the patient went into asystole got resuscitated intubated and transferred to the ICU subsequently have another cardiac arrest with PEA rhythm not resuscitated. On today's evaluation that is 09/03/2023, Patient is afebrile patient is currently on 3 L nasal cannula oxygen patient did have some episode of restlessness not very good historian no cough vomiting or any change reported by the sitter at the bedside Patient did have white count of 7.5 creatinine is 2.33 Objective - Vital Signs Vital signs: Vital Signs Temp 97.7 F 09/03/23 12:00 Pulse 91 09/03/23 14:00 Resp 16 09/03/23 14:00 BP 141/73 09/03/23 12:00 Pulse Ox 98 09/03/23 14:00 FiO2 3 09/02/23 04:00 Intake & Output 09/02/23 09/03/23 09/03/23 18:59 06:59 18:59 Intake Total 250 155 220 Output Total 1470 2125 825 Balance -7113 -7855 -795 Intake: IV 250 155 120 Normal Saline Carrier @ 50 55 20 5mL/hr Piperacillin-Tazobactam 3 100 100 100 .375 gm In Sodium Chloride 0.9% 100 ml @ 25 mls/hr IVPB Q12HR [facility] Rx #:[id number] Sodium Ferric Gluconat- 100 Sucrose 125 mg In Sodium Chloride 0.9% 100 ml @ 100 mls/hr IVPB DAILY [facility] Rx#:[id number] Oral 100 Output: Urine 1470 2125 825 Other: Voiding Method Indwelling Catheter Indwelling Catheter Indwelling Catheter ABP, PAP, CO, CI - Last Documented Arterial Blood Pressure 125/73 - Exam GENERAL DESCRIPTION: Middle-aged female lying in bed in no distress RESPIRATORY SYSTEM: Unlabored breathing , decreased breath sounds at bases HEART: S1 S2 regular rate and rhythm , ABDOMEN: Soft , no tenderness EXTREMITIES: Right heel wound is currently dressed - Labs CBC & Chem 7: 09/05/23 07:32 09/05/23 07:32 Labs: Abnormal Lab Results - Last 24 Hours (Table) 09/03/23 09/03/23 09/03/23 Range/Units 05:44 05:44 11:59 RBC 2.77 L (3.80-5.40) m/uL Hgb 8.1 L (11.4-16.0) gm/dL Hct 26.0 L (34.0-46.0) % RDW 18.8 H (11.5-15.5) % Chloride 111 H (98-107) mmol/L BUN 54 H (7-17) mg/dL Creatinine 2.33 H (0.52-1.04) mg/dL POC Glucose (mg/dL) 148 H (70-110) mg/dL Calcium 8.3 L (8.4-10.2) mg/dL Assessment and Plan (1) Pressure ulcer of right heel, stage 3 Current Visit: No Status: Acute Code(s): L89.613 - PRESSURE ULCER OF RIGHT HEEL, STAGE 3 SNOMED Code(s): 75487760239652 (2) Type 2 diabetes mellitus with foot ulcer Current Visit: No Status: Acute Code(s): E11.621 - TYPE 2 DIABETES MELLITUS WITH FOOT ULCER; L97.509 - NON-PRESSURE CHRONIC ULCER OTH PRT UNSP FOOT W UNSP SEVERITY SNOMED Code(s): 266729467 (3) UTI (urinary tract infection) Current Visit: Yes Status: Acute Code(s): N39.0 - URINARY TRACT INFECTION, SITE NOT SPECIFIED SNOMED Code(s): 28230774 (4) Aspiration pneumonia Current Visit: Yes Status: Acute Code(s): J69.0 - PNEUMONITIS DUE TO INHALATION OF FOOD AND VOMIT SNOMED Code(s): 384700467 Plan: 1patient with chronic nonhealing wound to the right heel area which has been there for a couple of months now patient overall wound base looks clean with no slough tissue in the wound is not pulling out the wound more likely a pressure ulcer stage III with evidence of any secondary cellulitis, local wound care has been switched over to the wound VAC to continue management per wound care 2-patient did have cardiac arrest requiring resuscitation in this patient who did have a chest x-ray with a right-sided infiltrate and question of aspiration pneumonia, the patient urine culture grew E. coli with some resistant pattern, sputum has been negative blood culture has been negative catheter tip cultures growing corynebacterium species more likely contamination with a blood culture negative no need for vancomycin. 3patient is afebrile white count remains has been normal patient to continue Zosyn and continue with supportive care Dictation was produced using [employer] dictation software. please excuse any grammatical, word or spelling errors. Time with Patient: Less than 30
--- NOTE | 2023-09-05 17:41 | P.PN ---
Subjective Progress Note Date: 09/04/23 Principal diagnosis: Reason for follow-up is right heel diabetic foot ulcer Patient is a 57-year-old female with a past medical history significant for diabetes mellitus hypertension hyperlipidemia history of renal insufficiency requiring dialysis currently not on dialysis and the patient also have a chronic nonhealing wound to the right heel area, present to the hospital with increasing shortness of breath and swelling concerning for fluid overload.Patient did have a cardiac arrest around 4 AM 08/23/2023 with the patient went into asystole got resuscitated intubated and transferred to the ICU subsequently have another cardiac arrest with PEA rhythm not resuscitated. On today's evaluation that is 09/04/2023, patient has been afebrile, patient is breathing comfortably and is currently on 3 L nasal cannula oxygen, patient did have features of confusion and restlessness and cannot provide any history no vomiting diarrhea with the changes reported by the sitter at the bedside. Patient did have white count of 7.4 creatinine is 2.04 Objective - Vital Signs Vital signs: Vital Signs Temp 98.2 F 09/04/23 03:56 Pulse 80 09/04/23 12:00 Resp 33 H 09/04/23 12:00 BP 128/66 09/04/23 12:00 Pulse Ox 94 L 09/04/23 12:00 FiO2 3 09/02/23 04:00 Intake & Output 09/03/23 09/04/23 09/04/23 18:59 06:59 18:59 Intake Total 220 100 100 Output Total 0549 347 8067 Balance -1105 -750 -975 Weight 79 kg 79 kg Intake: IV 120 100 100 Normal Saline Carrier @ 20 100 5mL/hr Piperacillin-Tazobactam 3 100 100 .375 gm In Sodium Chloride 0.9% 100 ml @ 25 mls/hr IVPB Q12HR [facility] Rx #:[id number] Oral 100 Output: Urine 1209 408 0192 Other: Voiding Method Indwelling Catheter Indwelling Catheter Indwelling Catheter ABP, PAP, CO, CI - Last Documented Arterial Blood Pressure 125/73 - Exam GENERAL DESCRIPTION: Middle-aged female lying in bed in no distress RESPIRATORY SYSTEM: Unlabored breathing , decreased breath sounds at bases HEART: S1 S2 regular rate and rhythm , ABDOMEN: Soft , no tenderness EXTREMITIES: Right heel wound is currently dressed - Labs CBC & Chem 7: 09/05/23 07:32 09/05/23 07:32 Labs: Abnormal Lab Results - Last 24 Hours (Table) 09/04/23 09/04/23 09/04/23 Range/Units 01:12 09:15 10:05 RBC 2.20 L (3.80-5.40) m/uL Hgb 6.5 L* D (11.4-16.0) gm/dL Hct 20.7 L (34.0-46.0) % RDW 19.9 H (11.5-15.5) % Lymphocytes # (Manual) 0.67 L (1.0-4.8) k/uL Myelocytes # (Manual) 0.15 H (0) k/uL Sodium (137-145) mmol/L Chloride (98-107) mmol/L BUN (7-17) mg/dL Creatinine (0.52-1.04) mg/dL Glucose (74-99) mg/dL POC Glucose (mg/dL) 206 H 118 H (70-110) mg/dL Calcium (8.4-10.2) mg/dL Alkaline Phosphatase (38-126) U/L Total Protein (6.3-8.2) g/dL Albumin (3.5-5.0) g/dL Crossmatch 09/04/23 09/04/23 09/04/23 Range/Units 10:05 11:41 13:06 RBC (3.80-5.40) m/uL Hgb (11.4-16.0) gm/dL Hct (34.0-46.0) % RDW (11.5-15.5) % Lymphocytes # (Manual) (1.0-4.8) k/uL Myelocytes # (Manual) (0) k/uL Sodium 147 H (137-145) mmol/L Chloride 112 H (98-107) mmol/L BUN 67 H (7-17) mg/dL Creatinine 2.04 H (0.52-1.04) mg/dL Glucose 107 H (74-99) mg/dL POC Glucose (mg/dL) 142 H (70-110) mg/dL Calcium 8.2 L (8.4-10.2) mg/dL Alkaline Phosphatase 196 H (38-126) U/L Total Protein 5.5 L (6.3-8.2) g/dL Albumin 2.3 L (3.5-5.0) g/dL Crossmatch See Detail Assessment and Plan (1) Pressure ulcer of right heel, stage 3 Current Visit: No Status: Acute Code(s): L89.613 - PRESSURE ULCER OF RIGHT HEEL, STAGE 3 SNOMED Code(s): 18130778422171 (2) Type 2 diabetes mellitus with foot ulcer Current Visit: No Status: Acute Code(s): E11.621 - TYPE 2 DIABETES MELLITUS WITH FOOT ULCER; L97.509 - NON-PRESSURE CHRONIC ULCER OTH PRT UNSP FOOT W UNSP SEVERITY SNOMED Code(s): 074156018 (3) UTI (urinary tract infection) Current Visit: Yes Status: Acute Code(s): N39.0 - URINARY TRACT INFECTION, SITE NOT SPECIFIED SNOMED Code(s): 86320417 (4) Aspiration pneumonia Current Visit: Yes Status: Acute Code(s): J69.0 - PNEUMONITIS DUE TO INHALATION OF FOOD AND VOMIT SNOMED Code(s): 714014171 Plan: 1patient with chronic nonhealing wound to the right heel area which has been there for a couple of months now patient overall wound base looks clean with no slough tissue in the wound base 2-patient did have cardiac arrest requiring resuscitation in this patient who did have a chest x-ray with a right-sided infiltrate and question of aspiration pneumonia, the patient urine culture grew E. coli with some resistant pattern, sputum has been negative blood culture has been negative catheter tip cultures growing corynebacterium species more likely contamination with a blood culture negative no need for vancomycin. 3patient is afebrile white count remains has been normal 4- patient to continue Zosyn and monitor clinical course closely Dictation was produced using [employer] dictation software. please excuse any grammatical, word or spelling errors. Time with Patient: Less than 30
--- NOTE | 2023-09-05 17:42 | P.PN ---
Subjective Progress Note Date: 09/05/23 Principal diagnosis: Reason for follow-up is right heel diabetic foot ulcer Patient is a 57-year-old female with a past medical history significant for diabetes mellitus hypertension hyperlipidemia history of renal insufficiency requiring dialysis currently not on dialysis and the patient also have a chronic nonhealing wound to the right heel area, present to the hospital with increasing shortness of breath and swelling concerning for fluid overload.Patient did have a cardiac arrest around 4 AM 08/23/2023 with the patient went into asystole got resuscitated intubated and transferred to the ICU subsequently have another cardiac arrest with PEA rhythm not resuscitated. On today's evaluation that is 09/05/2023,the patient remains to be afebrile the patient is currently on 3 L current oxygen and is breathing comfortably did have episode of confusion and restlessness and did have a sitter at the bedside no vomiting diarrhea or any other changes reported by sitter at the bedside Patient white count 6.5 creatinine is 1.89 Objective - Vital Signs Vital signs: Vital Signs Temp 97.9 F 09/05/23 12:00 Pulse 65 09/05/23 12:00 Resp 10 L 09/05/23 12:00 BP 114/67 09/05/23 12:00 Pulse Ox 94 L 09/05/23 12:00 FiO2 3 09/02/23 04:00 Intake & Output 09/04/23 09/05/23 09/05/23 18:59 06:59 18:59 Intake Total 100 1145 385 Output Total 1075 1350 900 Balance -975 -205 -515 Weight 79 kg 69.2 kg Intake: IV 100 85 385 Dextrose 5% in Water 1, 350 000 ml @ 50 mls/hr IV . Q20H [facility] Rx#:[id number] Normal Saline Carrier @ 85 35 5mL/hr Piperacillin-Tazobactam 3 100 .375 gm In Sodium Chloride 0.9% 100 ml @ 25 mls/hr IVPB Q12HR [facility] Rx #:[id number] Intake, IV Titration 750 Amount Dextrose 5% in Water 1, 750 000 ml @ 50 mls/hr IV . Q20H [facility] Rx#:[id number] Blood Product 0 310 Rc As-1 Unit 0 310 [id number] Output: Urine 1075 1350 900 Other: Voiding Method Indwelling Catheter Indwelling Catheter ABP, PAP, CO, CI - Last Documented Arterial Blood Pressure 125/73 - Exam GENERAL DESCRIPTION: Middle-aged female lying in bed in no distress RESPIRATORY SYSTEM: Unlabored breathing , decreased breath sounds at bases HEART: S1 S2 regular rate and rhythm , ABDOMEN: Soft , no tenderness EXTREMITIES: Right heel wound is currently dressed - Labs CBC & Chem 7: 09/05/23 07:32 09/05/23 07:32 Labs: Abnormal Lab Results - Last 24 Hours (Table) 09/04/23 09/04/23 09/04/23 Range/Units 13:06 16:44 20:24 RBC (3.80-5.40) m/uL Hgb (11.4-16.0) gm/dL Hct (34.0-46.0) % RDW (11.5-15.5) % Lymphocytes # (1.0-4.8) k/uL Sodium (137-145) mmol/L Chloride (98-107) mmol/L BUN (7-17) mg/dL Creatinine (0.52-1.04) mg/dL Glucose (74-99) mg/dL POC Glucose (mg/dL) 145 H 141 H (70-110) mg/dL Calcium (8.4-10.2) mg/dL Crossmatch See Detail 09/05/23 09/05/23 09/05/23 Range/Units 07:29 07:32 07:32 RBC 2.45 L (3.80-5.40) m/uL Hgb 7.3 L (11.4-16.0) gm/dL Hct 23.2 L (34.0-46.0) % RDW 18.8 H (11.5-15.5) % Lymphocytes # 0.8 L (1.0-4.8) k/uL Sodium 146 H (137-145) mmol/L Chloride 111 H (98-107) mmol/L BUN 57 H (7-17) mg/dL Creatinine 1.89 H (0.52-1.04) mg/dL Glucose 130 H (74-99) mg/dL POC Glucose (mg/dL) 154 H (70-110) mg/dL Calcium 8.1 L (8.4-10.2) mg/dL Crossmatch Assessment and Plan (1) Pressure ulcer of right heel, stage 3 Current Visit: No Status: Acute Code(s): L89.613 - PRESSURE ULCER OF RIGHT HEEL, STAGE 3 SNOMED Code(s): 76004539024756 (2) Type 2 diabetes mellitus with foot ulcer Current Visit: No Status: Acute Code(s): E11.621 - TYPE 2 DIABETES MELLITUS WITH FOOT ULCER; L97.509 - NON-PRESSURE CHRONIC ULCER OTH PRT UNSP FOOT W UNSP SEVERITY SNOMED Code(s): 624486524 (3) UTI (urinary tract infection) Current Visit: Yes Status: Acute Code(s): N39.0 - URINARY TRACT INFECTION, SITE NOT SPECIFIED SNOMED Code(s): 39906450 (4) Aspiration pneumonia Current Visit: Yes Status: Acute Code(s): J69.0 - PNEUMONITIS DUE TO INHALATION OF FOOD AND VOMIT SNOMED Code(s): 141898532 Plan: 1patient with chronic nonhealing wound to the right heel area which has been there for a couple of months now patient overall wound base looks clean with no slough tissue in the wound base 2-patient did have cardiac arrest requiring resuscitation in this patient who did have a chest x-ray with a right-sided infiltrate and question of aspiration pneumonia, the patient urine culture grew E. coli with some resistant pattern, sputum has been negative blood culture has been negative catheter tip cultures growing corynebacterium species more likely contamination with repeat blood culture negative no need for vancomycin. 3patient is afebrile white count remains has been normal 4- patient currently on Zosyn to cover for the UTI and monitor clinical course closely Dictation was produced using [employer] dictation software. please excuse any grammatical, word or spelling errors. Time with Patient: Less than 30
[2023-09-05 20:20] LABS: Glucose,Whole Blood 130 mg/dL (70-110)
[2023-09-06 04:51] LABS: Anisocytosis Slight; HCT 24.7 % (34.0-46.0); HGB 7.6 gm/dL (11.4-16.0); Hypochromasia Marked; MCH 29.8 pg (25.0-35.0); MCHC 30.7 g/dL (31.0-37.0); Macrocytosis Slight; Mean Platelet Volume 8.6; Platelet Count 216 k/uL (150-450); Poikilocytosis Slight; RBC 2.55 m/uL (3.80-5.40); RDW 18.8 % (11.5-15.5)
[2023-09-06 05:03] LABS: African American GFR (CKD) 37 (>60 ml/min/1.73 sqM); Anion Gap 6 mmol/L; Blood Urea Nitrogen 52 mg/dL (7-17); Calcium 8.2 mg/dL (8.4-10.2); Carbon Dioxide 30 mmol/L (22-30); Chloride 109 mmol/L (98-107); Glucose 126 mg/dL (74-99); Magnesium 1.9 mg/dL (1.6-2.3); Non-African American GFR(CKD) 32 (>60 ml/min/1.73 sqM); Potassium 3.9 mmol/L (3.5-5.1); Sodium 145 mmol/L (137-145)
--- NOTE | 2023-09-06 05:59 | P.PN ---
Subjective Progress Note Date: 09/05/23 57-year-old female came in with complaints of shortness of breath and orthopnea found to be in congestive heart failure exacerbation patient has congestive heart failure with reduced ejection fraction in the past patient has increasing pedal edema. Patient also has an ulcer in the right foot stage III-IV which appeared to be infected we will consult wound care and infectious disease. Patient was on hemodialysis during last hospitalization her creatinine presently is 1.5 which is significantly improved patient potassium is 5.5, patient is on Entresto and Aldactone Aldactone will be held Entresto will be continued since she is receiving IV Lasix and expecting her potassium to improve if it does not improve or get worse then Entresto need to be discontinued as well. Patient has hypervolemic hyponatremia and hyperglycemia. 08/21/2023 Was evaluated today on the medical floor. Patient was continued on IV Lasix overnight however she was no longer reporting any shortness of breath and her lower extremity edema has improved. She was taken off of the Lasix at this time due to increased creatinine up to 2.31 additionally potassium remains elevated at 5.7. Echocardiogram comes back showing an improved ejection fraction of 60 to 65% because of this and also the hyperkalemia patient will not be continued on entresto. Patient was evaluated by infectious disease who felt like that heel ulcer on the right side was more likely a pressure injury stage III and is recommending local wound care to continue with Aquacel. Patient is reporting significant pain to the right foot and feels like it is fractured. Upon review of the patient's chart she did have a x-ray completed of this 12 days ago ordered by her orthodontist Dr. Mayen. Ankle x-ray did review a mildly displaced acute distal fibular fracture. Repeat x-ray of the foot and ankle completed today does reveal a subacute fractures of the medial and lateral malleolus. The lateral malleolus fracture was seen on the patient's prior exam the medial malleolus fracture may be new in the interval and this would be considered an unstable ankle fracture. There is interval 6 mm displacement of the lateral malleolus. There is a deep soft tissue ulcer at the plantar heel with no clear radiographic findings of a contagious osteomyelitis at this time. Orthooedics was consulted for this. 08/22/2023 Patient evaluated in follow-up today resting in bed. She was taken off of the Lasix remains off at this time. Bladder scan was requested and not done yesterday to rule out urinary retention, creatinine today is increased up to 2.56. Bladder scan was done require urinary straight catheterization of 550 mL taken out. Urinalysis was sent which is significantly abnormal. Patient is also noted to have multiple genital lesions which appear wartlike she admits to not having any routine gynecological screenings for many years. She is not having any vaginal bleeding or discharge. Renal ultrasound has been ordered to rule out any obstructive uropathy. 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 Patient upon arrival to the intensive care unit had another episode of cardiac arrest patient had bradycardia while on pressors in the ICU patient was intubated following the first cardiac arrest and is currently on the mechanical ventilator 50% FiO2. Chest x-ray showing similar interstitial and patchy component airspace disease right greater than left. There is a possible trace left pleural effusion. A brain CT which shows no acute intracranial process. Blood work today shows a white blood cell count of 13.8, hemoglobin 9.5, sodium level of 135, BUN of 62, creatinine of 2.76. AST ALT and alk phosphatase are significantly elevated consistent with a shock liver. TSH 3.310. Urinalysis is abnormal. Her urine culture is showing gram-negative bacilli patient is covered for the urinary tract infection as well as aspiration with IV Zosyn being managed by infectious disease. Patient is currently sedated with propofol and did require vasopressor support with Levophed which has been weaned at this time. Will discontinue the gabapentin patient is continued on aspirin Plavix and statin has been placed on hold. There is concern for possible arrhythmia precipitating the asystole additionally we need to rule out embolism and a D-dimer has been ordered. 08/24/2023 Patient is seen in follow-up today continues in the ICU on mechanical ventilation. FiO2 is 50% although titrating and was just placed at 40% with a PEEP of 5. Chest x-ray today shows that the ET tube is 7 mm from the sonam suggesting a pulled back 2 cm and reassess and also suspected underlying vascular congestion. Neuro is following and per nursing staff patient is following some simple commands and undergoing sedation holidays. Patient noted to have reduced EF of 30 to 35% and cardiology had been following. Will reconsult and appreciate input and recommendations. patient did have dialysis catheter removed and sent for cultures which are pending. Infectious disease following and patient is maintained on antibiotic. D-dimer is elevated above 16 and will attempt to obtain a VQ scan.57-year-old female came in with complaints of shortness of breath and orthopnea found to be in congestive heart failure exacerbation patient has congestive heart failure with reduced ejection fraction in the past patient has increasing pedal edema. Patient also has an ulcer in the right foot stage III-IV which appeared to be infected we will consult wound care and infectious disease. Patient was on hemodialysis during last hospitalization her creatinine presently is 1.5 which is significantly improved patient potassium is 5.5, patient is on Entresto and Aldactone Aldactone will be held Entresto will be continued since she is receiving IV Lasix and expecting her potassium to improve if it does not improve or get worse then Entresto need to be discontinued as well. Patient has hypervolemic hyponatremia and hyperglycemia. 08/21/2023 Was evaluated today on the medical floor. Patient was continued on IV Lasix overnight however she was no longer reporting any shortness of breath and her lower extremity edema has improved. She was taken off of the Lasix at this time due to increased creatinine up to 2.31 additionally potassium remains elevated at 5.7. Echocardiogram comes back showing an improved ejection fraction of 60 to 65% because of this and also the hyperkalemia patient will not be continued on entresto. Patient was evaluated by infectious disease who felt like that heel ulcer on the right side was more likely a pressure injury stage III and is recommending local wound care to continue with Aquacel. Patient is reporting significant pain to the right foot and feels like it is fractured. Upon review of the patient's chart she did have a x-ray completed of this 12 days ago ordered by her orthodontist Dr. Mayen. Ankle x-ray did review a mildly displaced acute distal fibular fracture. Repeat x-ray of the foot and ankle completed today does reveal a subacute fractures of the medial and lateral malleolus. The lateral malleolus fracture was seen on the patient's prior exam the medial malleolus fracture may be new in the interval and this would be considered an unstable ankle fracture. There is interval 6 mm displacement of the lateral malleolus. There is a deep soft tissue ulcer at the plantar heel with no clear radiographic findings of a contagious osteomyelitis at this time. Orthooedics was consulted for this. 08/22/2023 Patient evaluated in follow-up today resting in bed. She was taken off of the Lasix remains off at this time. Bladder scan was requested and not done yesterday to rule out urinary retention, creatinine today is increased up to 2.56. Bladder scan was done require urinary straight catheterization of 550 mL taken out. Urinalysis was sent which is significantly abnormal. Patient is also noted to have multiple genital lesions which appear wartlike she admits to not having any routine gynecological screenings for many years. She is not having any vaginal bleeding or discharge. Renal ultrasound has been ordered to rule out any obstructive uropathy. 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 Patient upon arrival to the intensive care unit had another episode of cardiac arrest patient had bradycardia while on pressors in the ICU patient was intubated following the first cardiac arrest and is currently on the mechanical ventilator 50% FiO2. Chest x-ray showing similar interstitial and patchy component airspace disease right greater than left. There is a possible trace left pleural effusion. A brain CT which shows no acute intracranial process. Blood work today shows a white blood cell count of 13.8, hemoglobin 9.5, sodium level of 135, BUN of 62, creatinine of 2.76. AST ALT and alk phosphatase are significantly elevated consistent with a shock liver. TSH 3.310. Urinalysis is abnormal. Her urine culture is showing gram-negative bacilli patient is covered for the urinary tract infection as well as aspiration with IV Zosyn being managed by infectious disease. Patient is currently sedated with propofol and did require vasopressor support with Levophed which has been weaned at this time. Will discontinue the gabapentin patient is continued on aspirin Plavix and statin has been placed on hold. There is concern for possible arrhythmia precipitating the asystole additionally we need to rule out embolism and a D-dimer has been ordered. 08/24/2023 Patient is seen in follow-up today continues in the ICU on mechanical ventil ation. FiO2 is 50% although titrating and was just placed at 40% with a PEEP of 5. Chest x-ray today shows that the ET tube is 7 mm from the sonam suggesting a pulled back 2 cm and reassess and also suspected underlying vascular congestion. Neuro is following and per nursing staff patient is following some simple commands and undergoing sedation holidays. Patient noted to have reduced EF of 30 to 35% and cardiology had been following. Will reconsult and appreciate input and recommendations. patient did have dialysis catheter removed and sent for cultures which are pending. Infectious disease following and patient is maintained on antibiotic. D-dimer is elevated above 16 and will atte mpt to obtain a VQ scan. 08/25/23 : Patient seen and evaluated at bedside, patient extubated around noon, transition to 5 L of oxygen to nasal cannula. Family at bedside, blood work reviewed hemoglobin 10.3, serum chemistry reviewed sodium 140 potassium 4.8 BUN 57 creatinine 2.49 calcium of 7. 08/26/23 : Patient seen and evaluated at bedside, patient remains in medical ICU, does complain of chest pain from CPR. Patient has been weaned off dopamine, cardiology following, blood work reviewed, hemoglobin 8.5 platelet count of 217, serum chemistry shows sodium 141 BUN 51 creatinine 2.28. Followed up by nephrology as well MARYLOU secondary to ATN continue to monitor intake and output 08/27/23: Patient seen and evaluated bedside, on evaluation patient is disoriented, patient is drowsy however likely having acute delirium. Seen by cardiology echocardiogram shows preserved ejection fraction continue with current medical management, patient on Precedex for acute delirium, continue to remain on oxygen supplementation with nasal cannula blood work reviewed CBC showed WBC 8.2 hemoglobin 8.6 serum chemistry showed creatinine of 2.22. Patient remains delirious, daughter at bedside all questions answered 08/28/2023 Patient was agitated earlier requiring Seroquel and Placed on Precedex because she was has risk to self and others Currently when I saw the patient she was sleepy However she is not tachypneic show does not look in pain. Vitals are stable She is saturating 91% on 2 L oxygen via nasal cannula She remains on Zosyn for pneumonia and UTI She is on normal saline at 50 mL/h 08/29/2023 Patient remains sleepy, she still has some encephalopathy But she is on Precedex which will be tapered off by pulmonary team today to assess her mentation as well. Patient has been followed by neurology for suspected anoxic brain injury after her cardiac arrest and return of circulation on 08/22. There is no evidence of seizure-like activity She has catheter tip infection with culture growing Corynebacterium species and she is currently covered with Zosyn which also help for her right heel pressure ulcer and aspiration pneumonia and UTI. Cardiology evaluated the patient and there is no clear evidence for her cardiac arrest although she has history of coronary artery disease and previous stents. Currently with no chest pain. She remains on aspirin and Plavix, gentle hydration, IV steroids 08/30/2023 Today her sedation remains off however patient mentation not completely resolved, it is somewhat better as she was more sleepy yesterday She is eating okay, swallowing is fine She was started on IV Lasix twice daily per line and frame poler. She has good urine output and normal send discontinued She is hemodynamically stable and oxygenation is acceptable Remains on aspirin and Plavix and Seroquel 08/31/23: Seen and evaluated at bedside, patient remains on 4 L of oxygen, blood work reviewed, WBC 7.3 hemoglobin 9.1 platelet count of 203 glucose 119. CBC reviewed showed WBC 7.3 hemoglobin 9.1 platelet count of 203.. Neurology consulted and following. Patient is awake and alert able to answer questions and follow commands sister at bedside all questions answered 09/01/23: Seen and evaluated at bedside, patient vitals reviewed, serum chemistry reviewed sodium 145 potassium 4.6 creatinine 2.71, CBC reviewed patient remains on IV Zosyn , appreciate input from nephrology continue patient on IV Lasix, delirium persist 09/02/23: Patient seen and evaluated bedside, patient been admitted for cardiopulmonary arrest, respiratory failure s/p extubation on nasal cannula however continues to remain delirious. Blood work reviewed hemoglobin 8.8, platelet count 226, serum chemistry reviewed creatinine 2.55 potassium 4.5. MRI brain has been ordered which is pending, patient remains disoriented 09/03/2023 Patient is seen in follow-up status post recent extubation maintained on a few liters of pulmonary career consultant following closely. Cardiology following as well and adjusted medications recommending continuing with current medication regimen. No change in mentation as patient continues with periods of confusion and restlessness. Medications being adjusted and Ativan as needed has been added. Continue Seroquel. Patient will answer questions appropriately and discuss her health history and can recall her doctors names but will ramble on regarding something irrelevant during conversation. Patient is redirectable. Patient continues with partial cast noted on the lower extremity. Patient continues on IV Lasix and kidney functions are improving nephrology following closely. Plan is for patient to possibly move out of the ICU. Will have PT/OT therapy evaluate the patient and discuss further with consultations along with case management regarding possible ECF versus discharge planning. 09/04/2023 Patient seen in follow-up today and continues to have periods of confusion and restlessness. Patient continues in the ICU with multiple medical consultations following. Hemoglobin was found to be less than 7 today and will transfuse 1 unit of PRBC. Sodium 147 and recommend repeat labs as well. Nephrology is following and patient is continued on IV Lasix. MRI of the brain remains pending and neurology is following. 09/05/2023 Patient is seen and evaluated today continues to be in the ICU needs continuous reinforcement on keeping oxygen on. Patient does have a health safety instructor at the bedside. Patient is currently resting although remains confused and anxious and agitated at times. Hemoglobin is stable above 7 status post 1 unit of PRBC. Patient continues on IV Lasix daily and nephrology following closely. Patient to continue on IV antibiotics with infectious disease following. Review of systems: Unable to completely assess as patient is sleeping All medications have been reviewed Active Medications Acetaminophen (Acetaminophen Tab 325 Mg Tab) 650 mg PO Q6HR PRN PRN Reason: Fever and/ or Pain Last Admin: 09/05/23 10:25 Dose: 650 mg Hydrocodone Bitart/Acetaminophen (Hydrocodone/Apap 5-325mg 1 Each Tab) 1 each PO Q6HR PRN PRN Reason: Pain Last Admin: 09/04/23 23:13 Dose: 1 each Albuterol/Ipratropium (Ipratropium-Albuterol 3 Ml Neb) 3 ml INHALATION RT-QID PRN PRN Reason: Dyspnea Amlodipine Besylate (Amlodipine 5 Mg Tab) 5 mg PO DAILY [facility] Last Admin: 09/05/23 10:16 Dose: 5 mg Aspirin (Aspirin 81 Mg) 81 mg PO DAILY [facility] Last Admin: 09/05/23 10:16 Dose: 81 mg Atorvastatin Calcium (Atorvastatin 40 Mg Tab) 40 mg PO DAILY [facility] Last Admin: 09/05/23 10:25 Dose: 40 mg Clopidogrel Bisulfate (Clopidogrel 75 Mg Tab) 75 mg PO DAILY [facility] Last Admin: 09/05/23 10:22 Dose: 75 mg Darbepoetin Frantz (Darbepoetin Frantz 40 Mcg/0.4 Ml Syringe) 40 mcg SQ Q7D [facility] Last Admin: 08/30/23 16:11 Dose: 40 mcg Dextrose/Water (Dextrose 50% Syringe 50 Ml) 25 ml IVP PER PROTOCOL PRN; Protocol PRN Reason: Hypoglycemia Last Admin: 08/23/23 21:17 Dose: 25 ml Dextrose/Water (Dextrose 50% Syringe 50 Ml) 50 ml IVP PER PROTOCOL PRN; Protocol PRN Reason: Hypoglycemia Docusate Sodium (Docusate 100 Mg Cap) 100 mg PO BID [facility] Last Admin: 09/05/23 20:30 Dose: 100 mg Furosemide (Furosemide 10 Mg/Ml 4 Ml Vial) 40 mg IV DAILY [facility] Last Admin: 09/05/23 10:28 Dose: 40 mg Heparin Sodium (Porcine) (Heparin Sodium,Porcine 5,000 Unit/Ml 1 Ml Vial) 5,000 unit SQ Q12HR [facility] Last Admin: 09/05/23 20:31 Dose: 5,000 unit Piperacillin Sod/Tazobactam (Sod 3.375 gm/ Sodium Chloride) 100 mls @ 25 mls/hr IVPB Q12HR [facility]; Protocol Last Admin: 09/05/23 20:29 Dose: 25 mls/hr Dextrose/Water (Dextrose 5%-Water Iv Soln) 1,000 mls @ 50 mls/hr IV .Q20H [facility] Last Admin: 09/06/23 05:04 Dose: 50 mls/hr Insulin Aspart (Insulin Aspart (Novolog) 100 Unit/Ml Vial) 0 unit SQ ACHS [facility]; Protocol Last Admin: 09/05/23 20:31 Dose: Not Given Isosorbide Mononitrate (Isosorbide Mononitrate Er 30 Mg Tab.Er.24h) 30 mg PO DAILY [facility] Last Admin: 09/05/23 10:15 Dose: 30 mg Lidocaine (Lidocaine 4% Patch) 1 patch TOPICAL DAILY [facility]; Protocol Last Admin: 09/05/23 10:13 Dose: 1 patch Lorazepam (Lorazepam 1 Mg/0.5 Ml Vial) 0.5 mg IV Q2HR PRN PRN Reason: Anxiety Last Admin: 09/06/23 05:50 Dose: 0.5 mg Metoprolol Tartrate (Metoprolol Tartrate 12.5 Mg Tab) 12.5 mg PO BID [facility] Last Admin: 09/05/23 20:30 Dose: 12.5 mg Morphine Sulfate (Morphine Sulfate 2 Mg/Ml Syringe) 2 mg IVP Q4HR PRN PRN Reason: Pain Scale 7 to 10 Last Admin: 09/05/23 20:29 Dose: 2 mg Quetiapine Fumarate (Quetiapine 50 Mg Tab) 150 mg PO BID [facility] Last Admin: 09/05/23 20:30 Dose: 150 mg Risperidone (Risperidone 0.25 Mg Tab) 0.25 mg PO DAILY [facility] Last Admin: 09/05/23 10:21 Dose: 0.25 mg Ropinirole HCl (Ropinirole Hcl 1 Mg Tab) 1 mg PO HS PRN PRN Reason: restless legs Ropinirole HCl (Ropinirole Hcl 1 Mg Tab) 1 mg PO HS [facility] Last Admin: 09/05/23 20:30 Dose: 1 mg PHYSICAL EXAMINATION: GENERAL: The patient is on nasal cannula, disoriented, lethargic although arousable, alert and oriented x 1, elderly appearing, unkept, ill-appearing HEENT: Pupils are round and equally reacting to light. EOMI. CARDIOVASCULAR: S1 and S2 muffled PULMONARY: Decreased breath sounds bilaterally with some scattered rhonchi noted ABDOMEN: Soft, nontender, nondistended, normoactive bowel sounds. No palpable organomegaly. MUSCULOSKELETAL: No joint swelling or deformity. EXTREMITIES: Right lower extremity bandage with partial cast noted NEUROLOGICAL: pupils reactive unable to assess completely as patient is confused SKIN: Patient has right plantar surface ulcer on the posterior foot stage III-IV with areas of necrotic tissue Assessment: * Asystole/cardiopulmonary arrest x 2 with CPR/ROSC * Respiratory failure requiring intubation s/p extubation 08/25/2023 * Acute metabolic encephalopathy * Congestive heart failure with systolic dysfunction acute on chronic exacerbation * Ischemic cardiomyopathy with improved EF * Acute kidney injury secondary to ATN on chronic kidney disease stage III * Urinary tract infection with E. coli * Subacute fracture of the medial and lateral malleolus, orthopedics following * Right heel stage III pressure injury continue local wound care with aquacel ID following. * Genital lesions, will need editor dictionary follow up outpatient for routine screenings * Hypertension * Hyperlipidemia * Type 2 diabetes mellitus uncontrolled hgb a1c 12.1 * Severe pulmonary hypertension * COPD without any acute exacerbation * Peripheral neuropathy * Obesity with a body mass index of 30.8 * GI prophylaxis * DVT prophylaxis * Full code Plan: * Patient continues to remain critically ill, was intubated s/p extubation, weaned off to nasal cannula 4 L. Patient is in the ICU although is being considered to transfer out to the stepdown unit once a bed is available. Patient has been tolerating weaning FiO2. Patient continues to be found to have no oxygen on exam she continues to take it off. corrosion control engineer at bedside * In regards to acute encephalopathy likely post ICU delirium, neurology following and will continue with frequent reorientation, patient is off Precedex, CT head negative for acute intracranial process EEG is abnormal with background slowing encephalopathy noted, MRI brain requested by neurology, although unable to obtain as patient continues to be confused and restless at times * Hemoglobin improved above 7, status post a unit of PRBC and recommend follow- up labs. No active bleeding noted. * In regards to urinary tract infection, chronic nonhealing wound and right heel, urine cultures grew E. coli. Patient treated with IV antibiotic received IV Zosyn, end date determined by infectious disease. Will discuss with infectious disease regarding continued antibiotic therapy * In regards to aspiration pneumonia,, continue patient on IV Zosyn managed by infectious disease, continue aspiration precautions and head of bed elevated and supervision with meals * In regards to cardiomyopathy patient weaned off pressor support, dopamine weaned off as well, continue current medications including aspirin, Plavix, cardiology following continue IV Lasix nephrology following, kidney function is improving * In regards to suspicion for pulm embolism venous ultrasound lower extremity ordered no evidence of DVT noted on subcu heparin for DVT prophylaxis * In regards to diabetes mellitus continue monitoring Accu-Cheks before meals and at bedtime, continue sliding scale and will adjust accordingly * Will discuss with case management/social work regarding discharge planning and will need PT/OT therapy evaluation to discuss overall treatment plan moving forward. * Due to multiple complex medical issues, prognosis is guarded The impression and plan of care has been dictated by Mouna Rowley, Nurse Practitioner as directed. Dr. Katarzyna MD I have performed a history and examination and MDM of this patient, discussed the same with the dictator, and agree with the dictator's assessment and plan as written ,documented as a scribe. Based on total visit time, I have performed more than 50% of the visit. Objective - Vital Signs Vital signs: Vital Signs Temp 97.8 F 09/05/23 04:00 Pulse 84 09/05/23 04:00 Resp 16 09/05/23 00:00 BP 128/85 09/05/23 04:00 Pulse Ox 95 09/05/23 04:00 FiO2 3 09/02/23 04:00 Intake & Output 09/04/23 09/04/23 09/05/23 06:59 18:59 06:59 Intake Total 178 566 1968 Output Total 850 1075 1350 Balance -750 -975 -205 Weight 79 kg 79 kg 69.2 kg Intake: IV 100 100 85 Normal Saline Carrier @ 100 85 5mL/hr Piperacillin-Tazobactam 3 100 .375 gm In Sodium Chloride 0.9% 100 ml @ 25 mls/hr IVPB Q12HR [facility] Rx #:[id number] Intake, IV Titration 750 Amount Dextrose 5% in Water 1, 750 000 ml @ 50 mls/hr IV . Q20H [facility] Rx#:[id number] Blood Product 0 310 Rc As-1 Unit 0 310 [id number] Output: Urine 850 1075 1350 Other: Voiding Method Indwelling Catheter Indwelling Catheter Indwelling Catheter ABP, PAP, CO, CI - Last Documented Arterial Blood Pressure 125/73 - Labs CBC & Chem 7: 09/06/23 04:28 09/06/23 04:28 Labs: Abnormal Lab Results - Last 24 Hours (Table) 09/04/23 09/04/23 09/04/23 Range/Units 09:15 10:05 10:05 RBC 2.20 L (3.80-5.40) m/uL Hgb 6.5 L* D (11.4-16.0) gm/dL Hct 20.7 L (34.0-46.0) % RDW 19.9 H (11.5-15.5) % Lymphocytes # (Manual) 0.67 L (1.0-4.8) k/uL Myelocytes # (Manual) 0.15 H (0) k/uL Sodium 147 H (137-145) mmol/L Chloride 112 H (98-107) mmol/L BUN 67 H (7-17) mg/dL Creatinine 2.04 H (0.52-1.04) mg/dL Glucose 107 H (74-99) mg/dL POC Glucose (mg/dL) 118 H (70-110) mg/dL Calcium 8.2 L (8.4-10.2) mg/dL Alkaline Phosphatase 196 H (38-126) U/L Total Protein 5.5 L (6.3-8.2) g/dL Albumin 2.3 L (3.5-5.0) g/dL Crossmatch 09/04/23 09/04/23 09/04/23 Range/Units 11:41 13:06 16:44 RBC (3.80-5.40) m/uL Hgb (11.4-16.0) gm/dL Hct (34.0-46.0) % RDW (11.5-15.5) % Lymphocytes # (Manual) (1.0-4.8) k/uL Myelocytes # (Manual) (0) k/uL Sodium (137-145) mmol/L Chloride (98-107) mmol/L BUN (7-17) mg/dL Creatinine (0.52-1.04) mg/dL Glucose (74-99) mg/dL POC Glucose (mg/dL) 142 H 145 H (70-110) mg/dL Calcium (8.4-10.2) mg/dL Alkaline Phosphatase (38-126) U/L Total Protein (6.3-8.2) g/dL Albumin (3.5-5.0) g/dL Crossmatch See Detail 09/04/23 Range/Units 20:24 RBC (3.80-5.40) m/uL Hgb (11.4-16.0) gm/dL Hct (34.0-46.0) % RDW (11.5-15.5) % Lymphocytes # (Manual) (1.0-4.8) k/uL Myelocytes # (Manual) (0) k/uL Sodium (137-145) mmol/L Chloride (98-107) mmol/L BUN (7-17) mg/dL Creatinine (0.52-1.04) mg/dL Glucose (74-99) mg/dL POC Glucose (mg/dL) 141 H (70-110) mg/dL Calcium (8.4-10.2) mg/dL Alkaline Phosphatase (38-126) U/L Total Protein (6.3-8.2) g/dL Albumin (3.5-5.0) g/dL Crossmatch
[2023-09-06 06:41] LABS: Glucose,Whole Blood 161 mg/dL (70-110)
--- NOTE | 2023-09-06 10:47 | P.PN ---
Subjective Patient is seen in follow-up for acute kidney injury. Renal function improving. On IV Lasix. Nonoliguric. Sitter present at bedside. Sodium level 145. On D5W. Vital signs are stable. General: Resting in bed. HEENT: On nasal cannula. LUNGS: No audible rhonchi or wheezes. HEART: Rate and Rhythm are regular. ABDOMEN: No distention. EXTREMITITES: 1+ edema. Objective - Vital Signs Vital signs: Vital Signs Temp 94.5 F L 09/06/23 08:00 Pulse 79 09/06/23 08:00 Resp 12 09/06/23 08:00 BP 155/82 09/06/23 08:00 Pulse Ox 91 L 09/06/23 08:31 FiO2 3 09/02/23 04:00 Intake & Output 09/05/23 09/06/23 09/06/23 18:59 06:59 18:59 Intake Total 385 360 Output Total 900 1800 Balance -515 -1440 Weight 66.6 kg Intake: IV 385 360 Dextrose 5% in Water 1, 350 320 000 ml @ 50 mls/hr IV . Q20H [facility] Rx#:[id number] Normal Saline Carrier @ 35 40 5mL/hr Output: Urine 900 1800 Other: Voiding Method Indwelling Catheter Indwelling Catheter ABP, PAP, CO, CI - Last Documented Arterial Blood Pressure 125/73 - Labs CBC & Chem 7: 09/06/23 04:28 09/06/23 04:28 Labs: Abnormal Lab Results - Last 24 Hours (Table) 09/05/23 09/05/23 09/06/23 Range/Units 16:21 20:19 04:28 RBC 2.55 L (3.80-5.40) m/uL Hgb 7.6 L (11.4-16.0) gm/dL Hct 24.7 L (34.0-46.0) % MCHC 30.7 L (31.0-37.0) g/dL RDW 18.8 H (11.5-15.5) % Chloride (98-107) mmol/L BUN (7-17) mg/dL Creatinine (0.52-1.04) mg/dL Glucose (74-99) mg/dL POC Glucose (mg/dL) 127 H 130 H (70-110) mg/dL Calcium (8.4-10.2) mg/dL 09/06/23 09/06/23 Range/Units 04:28 06:40 RBC (3.80-5.40) m/uL Hgb (11.4-16.0) gm/dL Hct (34.0-46.0) % MCHC (31.0-37.0) g/dL RDW (11.5-15.5) % Chloride 109 H (98-107) mmol/L BUN 52 H (7-17) mg/dL Creatinine 1.71 H (0.52-1.04) mg/dL Glucose 126 H (74-99) mg/dL POC Glucose (mg/dL) 161 H (70-110) mg/dL Calcium 8.2 L (8.4-10.2) mg/dL Assessment and Plan Plan: Assessment: 1. Acute kidney injury on chronic kidney disease secondary to ATN secondary to cardiorenal syndrome and cardiac arrest. Creatinine 1.5 admission and peaked at 2.98 this admission - 1.71 today. Patient was on hemodialysis in the past with last treatment being July 02, 2023. 2. Volume overload. Improving with diuresis. 3. Acute on chronic diastolic CHF. 4. Diabetes mellitus. 5. Right foot wound. 6. Coronary disease with cardiac stenting. 7. Status post PEA arrest with concern for anoxic encephalopathy. 8. Septic shock with urine culture positive for E. coli and catheter tip culture positive for Corynebacterium. On antibiotics. Off vasopressors. 9. Metabolic acidosis secondary to acute kidney injury and IV fluids. On oral bicarb. Improved. 10. Anemia. Iron deficiency noted. Status post IV iron. On Aranesp. Also received blood transfusion this admission. 11. Hypernatremia from lack of oral water intake and free water diuresis. Better with D5W. Plan: Maintain IV Lasix. Encouraged oral intake, including free water as able to tolerate. Maintain D5W. Sodium bicarb discontinued. Avoid nephrotoxins. Continue to monitor renal function and urine output.
--- NOTE | 2023-09-06 11:16 | P.PN ---
Subjective Progress Note Date: 09/06/23 I am following-up with patient and per nurse her mentation is waxing and waning. Patient feels she is doing better and hoping to leave home today. Objective - Vital Signs Vital signs: Vital Signs Temp 94.5 F L 09/06/23 10:30 Pulse 76 09/06/23 10:30 Resp 16 09/06/23 10:30 BP 136/71 09/06/23 10:30 Pulse Ox 92 L 09/06/23 10:30 FiO2 3 09/02/23 04:00 Intake & Output 09/05/23 09/06/23 09/06/23 18:59 06:59 18:59 Intake Total 385 360 Output Total 900 1800 Balance -515 -1440 Weight 66.6 kg Intake: IV 385 360 Dextrose 5% in Water 1, 350 320 000 ml @ 50 mls/hr IV . Q20H [facility] Rx#:[id number] Normal Saline Carrier @ 35 40 5mL/hr Output: Urine 900 1800 Other: Voiding Method Indwelling Catheter Indwelling Catheter ABP, PAP, CO, CI - Last Documented Arterial Blood Pressure 125/73 - Exam General: Lying in bed and does not appear in acute distress. Appear somewhat agitated and restless. Neuro: Is mildly drowsy and seems more awake today compared to yesterday. Patient is oriented to self, place. She correctly name pen and followed simple commands. She seems more responsive today compared to yesterday. No facial weakness. Is moving bilateral uppers above gravity. Has cast on right lower and moves the left lower extremity above gravity. Some of the work-up during this hospital visit consisted of: Is hypotensive. It seems she is hypotensive as low as 60's/40 today in stress engineer. Initial wbc is 9.2K and currently is 13.8K Today troponin is 1.010 and on presentation was normal. AST is 468 and ALT is 286 and on presentation was normal. Creatnine is trending up on this admission. glucose is normal. Repeat U/a appear positive acute UTi. TSH: 2.31 Ammonia [address] head is reported as not acute intracranial process. I personally reviewed CT and agree with report. 2D echo: It is reported as increased right vent systolic function. Routine EEG: Is abnormal. The background slowing is suggestive of severe encephalopathy. There is no focal slowing, epileptiform discharges or seizure on the EEG. Recent labs 03/2023 Vitamin B12: 813 RBC folate 926 - Labs CBC & Chem 7: 09/06/23 04:28 09/06/23 04:28 Labs: Abnormal Lab Results - Last 24 Hours (Table) 09/05/23 09/05/23 09/06/23 Range/Units 16:21 20:19 04:28 RBC 2.55 L (3.80-5.40) m/uL Hgb 7.6 L (11.4-16.0) gm/dL Hct 24.7 L (34.0-46.0) % MCHC 30.7 L (31.0-37.0) g/dL RDW 18.8 H (11.5-15.5) % Chloride (98-107) mmol/L BUN (7-17) mg/dL Creatinine (0.52-1.04) mg/dL Glucose (74-99) mg/dL POC Glucose (mg/dL) 127 H 130 H (70-110) mg/dL Calcium (8.4-10.2) mg/dL 09/06/23 09/06/23 Range/Units 04:28 06:40 RBC (3.80-5.40) m/uL Hgb (11.4-16.0) gm/dL Hct (34.0-46.0) % MCHC (31.0-37.0) g/dL RDW (11.5-15.5) % Chloride 109 H (98-107) mmol/L BUN 52 H (7-17) mg/dL Creatinine 1.71 H (0.52-1.04) mg/dL Glucose 126 H (74-99) mg/dL POC Glucose (mg/dL) 161 H (70-110) mg/dL Calcium 8.2 L (8.4-10.2) mg/dL Assessment and Plan Assessment: This is a 57 y/o woman with significant cardiac issues who was admitted on 08/19/2023 for right heel wound. Today she had two cardiopulmonary arrest at 4ish am and 6:30am and lasting each about 6 minutes per nurse. It seems the patient was bradycardiac then had asystole then on second had PEA. She currently has elevated troponin, was hypotensive. Cardiopumonary arrest X2 with ROSC. Possible cardiac especially with significan t cardiac history. Encephalopathy and appears anoxic encephalopathy due to above. Also has metabolic encephalopathy and underlying UTI. CT head is unremarkable. EEGX2 is severe encephalopathy but no seizure and repeated showed mild to moderate degree----Today seems better than entire weeks seen. Per nurse have fluctuation of mentation. Elevated troponin Hypotensive and on Norepinephrine Acute UTI Elevated LFT CKI Hx of ischemic cardiomyopathy Hx of congestive heart failure Hx of severe pulmonary HTN Ongoing DM and recent HBA1c is 12.1 Hx Peripheral neuropathy Hx of HTN Hx of hyperlipidemia Plan: Patient will be continued on ASA, Plavix and Lipitor 40 mg daily Repeat EEG 08/29/2023 was abnormal due to background slowing of mild to moderate degree. This is suggestive of generalized cerebral dysfunction as can be seen with toxic metabolic encephalopathy or related to diffuse structural brain abnormality. Clinical correlation recommended. No epileptiform activity was seen. When compared to the previous EEG from 08/23/2023, the background has remarkably improved. Repeat CT head 08/28/2023 was again normal. No acute process. For hoarse voice, consider ENT consultation. Await MRI brain, rule out CVA. In mean time, I will obtain a repeat CT head. Patient has anemia and will defer management to primary team. For agitation, patient started on Seroquel 150 mg twice daily. Is also on Risperdal 0.25mg daily. Cardiology is on board I.D. is on board. Patient currently on Zosyn. Neprhology is on board DVT prophylaxis: Heparin 5000 units subcu every 12 hours. Will defer the rest of medical management to primary team and other specialists. ADDENDUM: I spoke with the patient's mother via phone and she stated the patient was doing better last week compared to this week. I notified her that it seems she has Delirium from fluctuation of mentation. Pending repeat CT head. I ordered a repeat EEG. Was notified by EEG patient is restless and could not cooperate for EEG. The plan is discussed with her nurse and mother via phone. Dr. Elmore will resume neurology service tomorrow A.M. Time with Patient: Less than 30
[2023-09-06 11:17] LABS: Glucose,Whole Blood 160 mg/dL (70-110)
--- NOTE | 2023-09-06 12:24 | P.PN ---
Subjective Progress Note Date: 09/06/23 Principal diagnosis: Cardiopulmonary arrest x 2 This is a 57-year-old female who was admitted back on August 18, for a right heel wound. Early this morning, the patient had a cardiopulmonary arrest. The patient apparently was initially found to be bradycardic, and then had asystole. She received 3 rounds of epinephrine. She arrived to the intensive care unit this morning at 630, having been intubated on the floor by anesthesia. In the ICU, the patient had an episode of pulseless electrical activity, and asystole, and received 2 rounds of epinephrine, a dose of atropine, and some sodium bicarbonate. I came into the intensive care unit this morning, early, to place a left internal jugular triple-lumen catheter, and a right femoral arterial line. Currently, the patient is on volume assist-control, rate 16, tidal volume 400, FiO2 50%, PEEP of 5. The most recent blood gases show pO2 of 75, pCO2 49, pH is 7.44. Arterial blood gases shortly after intubation showed a pO2 of 268, pCO2 of 38, and a pH of 7.25. The patient is currently on norepinephrine at 1.4 mcg/min, and saline at 50 cc an hour. Current labs include a white count 13.8, hemoglobin 9.5, hematocrit 31, and a platelet count of 257,000. PT was 12.9 with an INR of 1.2. Sodium 135, potassium 4.9, chlorides 111, CO2 19, anion gap 5, BUN 62, creatinine 2.76. The patient's AST is 468. ALT is 286. Albumin is 2.1. Urine, is suspicious for possible infection. Brain CT Today, Shows No Acute Intracranial Process. Chest x-ray shows bilateral patchy airspace disease, right greater than left. 08/30/2023, the patient is being seen for a follow-up. Remains encephalopathic, speech at times is garbled. Follows commands. She is not consistently having a conversation. A repeat CAT scan of the brain was done on 08/28/2023 and the findings showed no acute abnormalities. EEG was also done on 08/29/2023 and it showed abnormal slowing and mild to moderate degree of encephalopathy with generalized cerebral dysfunction. The patient is clinically stable and hemodynamically stable. No respiratory distress. Adequate swallow without any risk of aspiration. Chest x-ray from today showing increased incisional markings bilaterally, could be a component of fluid overload. Meanwhile, the patient is on no pressors. She is afebrile. She is on oxygen at 3 L. Blood work from today shows a sodium level of 142, BUN of 56 with a creatinine of 2.98 and a creatinine remained stable with a potassium level of 5 and a serum bicarb of 18. Serum cortisol 15. TSH is at 2.5. No hypothermia. The [facility], she remains on aspirin 81 mg p.o. daily combination with Plavix. She is on IV iron. She is covered empirically with IV Zosyn. She is on Seroquel 150 mg p.o. twice a day. Agitation is adequately controlled. 08/31/2023, the patient continues to have episodes of agitation. Overnight, the patient was quite restless and agitated. She had to be placed on Precedex. In itially at 0.8 mcg later on dropped down to 0.4 mcg and she is quite sedated at this point in time and the medication will be discontinued patient remains on 3 L of oxygen by nasal cannula. Moving all 4 extremities. Arousable and seems to be much comfortable this morning. Fluid balance is -1.9 L over the past 24 hours and the patient has responded to diuretics. Electrolytes are all stable with a BUN of 56 and a creatinine of 2.6 and a sodium is at 144, WBC count is at 7.3 with a hemoglobin 9.1. Remains on Seroquel 150 mg p.o. twice daily. Remains on IV Lasix 40 mg every 12 hours with a negative fluid balance. Remains on aspirin and Plavix. Rest of the medications are essentially unchanged for now. IV fluids are currently at KVO. 09/01/2023, the patient is much more comfortable. Awake and alert and communicating on low-dose Precedex at 0.2 mcg/kg/h. She is also on Seroquel. No significant agitation. Communicating moving all 4 extremities other than limitation. She is on 3 L of oxygen by nasal cannula. No respiratory distress. White cell count of 9.8 with a hemoglobin 8.6, BUN is 55 with a creatinine of 2.7. Fluid balance over the past 24 hours is -3 L. She is being diuresed with IV Lasix and she is currently on 40 mg IV every 12 hours. No focal neurological deficits. Will continue Reevaluate today on 09/02/2023, patient remains in the ICU, remains agitated, re stless, patient is receiving Seroquel, she is also on Zyprexa, her Seroquel dose is 150 twice daily, today I added Ativan 0.5 mg every 2 hours as needed. Patient was extubated on 08/24, she had intermittent episodes of supraventricular tachycardia, being addressed by cardiology patient is confused and encephalopathic. WBC count today is 7.4 hemoglobin 8.8 basic metabolic profile is normal BUN is 52 creatinine 2.55, steadily improving. Remains on IV Lasix, patient is nonoliguric, her mentation seems to be the major issue with significant encephalopathy and confusion Reevaluate today on 09/03/2023, patient remains in the ICU, still requiring Ativan intermittently and she is on Seroquel, patient is more calm and relaxed today, although she does have. Of agitation and restlessness. Continues to have a sitter at bedside. Patient is not requiring any Precedex, hence I plan to transfer the patient out to a cardiac floor with monitor. CBC is normal except for hemoglobin of 8.1 electrolytes are normal BUN is 54 creatinine 2.33, steadily improving compared to creatinine over the last few days Reevaluated today on 09/04/2023, patient is about the same, remains in the ICU as an overflow, patient has intermittent episodes of agitation and restlessness, remains on Seroquel, remains on Ativan as needed, patient is requiring intermittent medications for sedation, she is not requiring any more Precedex. Patient has a bedside sitter, and she needs almost constant attention. Labs including CBC and basic metabolic profile are normal BUN however is 67 creatinine 2.04 Reevaluated 09/05/2023, patient is about the same, continues to have intermittent episodes of agitation and restlessness, she is on D5W@50 mL/h she is also on Ativan 0 0.5 mg every 4 hours as needed intermittently receiving Lasix and she is on it now maintenance 40 mg IV push every 12 hours I cut it down to once a day. Continues to require sitter at bedside because of her intermittent episodes of agitations, today I added Risperdal 0.25 mg daily. WBC count is 6.5 hemoglobin 7.3 basic metabolic profile is normal BUN is 57 creatinine 1.89, improving Reevaluated on 09/06/2023, patient remains in the ICU, remains agitated intermittently, combative, when I evaluated the patient she was very calm and resting, sleeping, however apparently overnight the patient was extremely agitated and did not sleep much last night. Her Risperdal dose will be increased to 0.25 mg twice daily. The meantime patient is on many other medications to keep her calm and sedated. Patient has a sitter at bedside, does not seem to be in any distress labs today are unremarkable except hemoglobin of 7.6 basic metabolic profile is normal BUN is 52 creatinine 1.71 steadily improving over the last week Objective - Vital Signs Vital signs: Vital Signs Temp 96.8 F L 09/06/23 12:00 Pulse 73 09/06/23 12:00 Resp 10 L 09/06/23 12:00 BP 135/67 09/06/23 12:00 Pulse Ox 94 L 09/06/23 12:00 FiO2 3 09/02/23 04:00 Intake & Output 09/05/23 09/06/23 09/06/23 18:59 06:59 18:59 Intake Total 385 360 Output Total 900 1800 Balance -515 -1440 Weight 66.6 kg Intake: IV 385 360 Dextrose 5% in Water 1, 350 320 000 ml @ 50 mls/hr IV . Q20H [facility] Rx#:[id number] Normal Saline Carrier @ 35 40 5mL/hr Output: Urine 900 1800 Other: Voiding Method Indwelling Catheter Indwelling Catheter Indwelling Catheter ABP, PAP, CO, CI - Last Documented Arterial Blood Pressure 125/73 - Exam PHYSICAL EXAMINATION General: Reveals a 58-year-old female, in no distress, was calm and sleeping during my evaluation HEENT: Pupils are round and equally reacting to light. EOMI. CARDIOVASCULAR: S1 and S2 present. No murmurs, rubs, or gallops Pulmonary: Diminished breath sound bilaterally no crackles rhonchi or wheezes ABDOMEN: Soft, nontender, nondistended, normoactive bowel sounds. No palpable organomegaly. MUSCULOSKELETAL: No joint swelling or deformity. EXTREMITIES: No cyanosis, clubbing, bilateral pedal edema NEUROLOGICAL: Patient is sleeping, but apparently she was quite confused combative and restless last night. Psychiatric: Could not assess for SKIN: Patient has stage III decubitus ulcer - Labs CBC & Chem 7: 05/10/24 04:28 09/06/23 04:28 Labs: Abnormal Lab Results - Last 24 Hours (Table) 09/05/23 09/05/23 09/06/23 Range/Units 16:21 20:19 04:28 RBC 2.55 L (3.80-5.40) m/uL Hgb 7.6 L (11.4-16.0) gm/dL Hct 24.7 L (34.0-46.0) % MCHC 30.7 L (31.0-37.0) g/dL RDW 18.8 H (11.5-15.5) % Chloride (98-107) mmol/L BUN (7-17) mg/dL Creatinine (0.52-1.04) mg/dL Glucose (74-99) mg/dL POC Glucose (mg/dL) 127 H 130 H (70-110) mg/dL Calcium (8.4-10.2) mg/dL 09/06/23 09/06/23 09/06/23 Range/Units 04:28 06:40 11:15 RBC (3.80-5.40) m/uL Hgb (11.4-16.0) gm/dL Hct (34.0-46.0) % MCHC (31.0-37.0) g/dL RDW (11.5-15.5) % Chloride 109 H (98-107) mmol/L BUN 52 H (7-17) mg/dL Creatinine 1.71 H (0.52-1.04) mg/dL Glucose 126 H (74-99) mg/dL POC Glucose (mg/dL) 161 H 160 H (70-110) mg/dL Calcium 8.2 L (8.4-10.2) mg/dL Assessment and Plan Assessment: Impression: Cardiopulmonary arrest x 2 Acute hypoxic respiratory failure requiring intubation and mechanical ventilation extubated on 08/24, presently on room air. Acute hypoxic encephalopathy related to cardiac arrest History of diastolic congestive heart failure History of underlying coronary artery disease and successful stenting of pro ximal RCA Status post non-ST elevation myocardial infarction Stage III chronic kidney disease Right heel pressure ulcer stage III Subacute fracture of medial and lateral malleolus patient is requiring a soft cast in the right lower extremity History of underlying COPD History of peripheral neuropathy Dyslipidemia Type 2 diabetes Recommendation: Continue Seroquel at 150 twice daily Increase Risperdal to 0.25 twice daily Continue Ativan as needed Continue diuretics but once daily Continue to monitor renal functioning, being followed by nephrology, renal status is improving Continue IV Zosyn for cellulitis. Continue subcu heparin for DVT prophylaxis Continue Imdur and Norvasc and Lipitor as well as Plavix and aspirin Continue sitter at bedside. Will continue to follow Time with Patient: Less than 30
[2023-09-06] MEDS: MULTIVITAMINS, THERA 1 EACH TAB PO SCH (14:49)
[2023-09-06] MEDS: FOLIC ACID 1 MG TAB PO SCH (14:49)
[2023-09-06] MEDS: THIAMINE 100 MG TAB PO SCH (14:49)
--- NOTE | 2023-09-06 16:02 | P.PN ---
Subjective Progress Note Date: 09/06/23 Principal diagnosis: Reason for follow-up is right heel diabetic foot ulcer Patient is a 57-year-old female with a past medical history significant for diabetes mellitus hypertension hyperlipidemia history of renal insufficiency requiring dialysis currently not on dialysis and the patient also have a chronic nonhealing wound to the right heel area, present to the hospital with increasing shortness of breath and swelling concerning for fluid overload.Patient did have a cardiac arrest around 4 AM 08/23/2023 with the patient went into asystole got resuscitated intubated and transferred to the ICU subsequently have another cardiac arrest with PEA rhythm not resuscitated. On today's evaluation that is 09/06/2023,the patient did have a mild hypothermia this morning improvement in temperature at noon patient is hemodynamic stable not requiring pressor support she is currently on 3 L nasal cannula oxygen the patient is currently lethargic was also restless currently resting no vomiting or diarrhea reported by nursing staff. Patient white count 6.0, creatinine 0.71 Objective - Vital Signs Vital signs: Vital Signs Temp 96.8 F L 09/06/23 12:00 Pulse 73 09/06/23 12:00 Resp 10 L 09/06/23 12:00 BP 135/67 09/06/23 12:00 Pulse Ox 94 L 09/06/23 12:00 FiO2 3 09/02/23 04:00 Intake & Output 09/05/23 09/06/23 09/06/23 18:59 06:59 18:59 Intake Total 385 360 Output Total 900 1800 Balance -515 -1440 Weight 66.6 kg 66.6 kg Intake: IV 385 360 Dextrose 5% in Water 1, 350 320 000 ml @ 50 mls/hr IV . Q20H REPLACED BY [facility] Rx#:[id number] Normal Saline Carrier @ 35 40 5mL/hr Output: Urine 900 1800 Other: Voiding Method Indwelling Catheter Indwelling Catheter Indwelling Catheter ABP, PAP, CO, CI - Last Documented Arterial Blood Pressure 125/73 - Exam GENERAL DESCRIPTION: Middle-aged female lying in bed in no distress RESPIRATORY SYSTEM: Unlabored breathing , decreased breath sounds at bases HEART: S1 S2 regular rate and rhythm , ABDOMEN: Soft , no tenderness EXTREMITIES: Right heel wound is currently dressed - Labs CBC & Chem 7: 09/06/23 04:28 09/06/23 04:28 Labs: Abnormal Lab Results - Last 24 Hours (Table) 09/05/23 09/05/23 09/06/23 Range/Units 16:21 20:19 04:28 RBC 2.55 L (3.80-5.40) m/uL Hgb 7.6 L (11.4-16.0) gm/dL Hct 24.7 L (34.0-46.0) % MCHC 30.7 L (31.0-37.0) g/dL RDW 18.8 H (11.5-15.5) % Chloride (98-107) mmol/L BUN (7-17) mg/dL Creatinine (0.52-1.04) mg/dL Glucose (74-99) mg/dL POC Glucose (mg/dL) 127 H 130 H (70-110) mg/dL Calcium (8.4-10.2) mg/dL 09/06/23 09/06/23 09/06/23 Range/Units 04:28 06:40 11:15 RBC (3.80-5.40) m/uL Hgb (11.4-16.0) gm/dL Hct (34.0-46.0) % MCHC (31.0-37.0) g/dL RDW (11.5-15.5) % Chloride 109 H (98-107) mmol/L BUN 52 H (7-17) mg/dL Creatinine 1.71 H (0.52-1.04) mg/dL Glucose 126 H (74-99) mg/dL POC Glucose (mg/dL) 161 H 160 H (70-110) mg/dL Calcium 8.2 L (8.4-10.2) mg/dL Assessment and Plan (1) Pressure ulcer of right heel, stage 3 Current Visit: No Status: Acute Code(s): L89.613 - PRESSURE ULCER OF RIGHT HEEL, STAGE 3 SNOMED Code(s): 34705401570813 (2) Type 2 diabetes mellitus with foot ulcer Current Visit: No Status: Acute Code(s): E11.621 - TYPE 2 DIABETES MELLITUS WITH FOOT ULCER; L97.509 - NON-PRESSURE CHRONIC ULCER OTH PRT UNSP FOOT W UNSP SEVERITY SNOMED Code(s): 221429888 (3) UTI (urinary tract infection) Current Visit: Yes Status: Acute Code(s): N39.0 - URINARY TRACT INFECTION, SITE NOT SPECIFIED SNOMED Code(s): 64570286 (4) Aspiration pneumonia Current Visit: Yes Status: Acute Code(s): J69.0 - PNEUMONITIS DUE TO INHALATION OF FOOD AND VOMIT SNOMED Code(s): 483760929 Plan: 1patient with chronic nonhealing wound to the right heel area which has been there for a couple of months now patient overall wound base looks clean with no slough tissue in the wound base 2-patient did have cardiac arrest requiring resuscitation in this patient who did have a chest x-ray with a right-sided infiltrate and question of aspiration pneumonia, the patient urine culture grew E. coli with some resistant pattern, sputum has been negative blood culture has been negative catheter tip cultures growing corynebacterium species more likely contamination with repeat blood culture negative no need for vancomycin. 3patient is afebrile white count remains has been normal 4- patient is currently on Zosyn to continue neurology to address mental status family bedside multiple question altered Dictation was produced using [employer] dictation software. please excuse any grammatical, word or spelling errors.
[2023-09-06 16:21] LABS: Glucose,Whole Blood 88 mg/dL (70-110)
[2023-09-06 20:16] LABS: Glucose,Whole Blood 100 mg/dL (70-110)
[2023-09-06] MEDS: risperiDONE 2 MG TAB PO SCH (21:20)
[2023-09-06] MEDS: risperiDONE 0.25 MG TAB PO SCH (22:31)
--- NOTE | 2023-09-07 06:42 | P.PN ---
Subjective Progress Note Date: 09/06/23 57-year-old female came in with complaints of shortness of breath and orthopnea found to be in congestive heart failure exacerbation patient has congestive heart failure with reduced ejection fraction in the past patient has increasing pedal edema. Patient also has an ulcer in the right foot stage III-IV which appeared to be infected we will consult wound care and infectious disease. Patient was on hemodialysis during last hospitalization her creatinine presently is 1.5 which is significantly improved patient potassium is 5.5, patient is on Entresto and Aldactone Aldactone will be held Entresto will be continued since she is receiving IV Lasix and expecting her potassium to improve if it does not improve or get worse then Entresto need to be discontinued as well. Patient has hypervolemic hyponatremia and hyperglycemia. 08/21/2023 Was evaluated today on the medical floor. Patient was continued on IV Lasix overnight however she was no longer reporting any shortness of breath and her lower extremity edema has improved. She was taken off of the Lasix at this time due to increased creatinine up to 2.31 additionally potassium remains elevated at 5.7. Echocardiogram comes back showing an improved ejection fraction of 60 to 65% because of this and also the hyperkalemia patient will not be continued on entresto. Patient was evaluated by infectious disease who felt like that heel ulcer on the right side was more likely a pressure injury stage III and is recommending local wound care to continue with Aquacel. Patient is reporting significant pain to the right foot and feels like it is fractured. Upon review of the patient's chart she did have a x-ray completed of this 12 days ago ordered by her lead presser Dr. Mayen. Ankle x-ray did review a mildly displaced acute distal fibular fracture. Repeat x-ray of the foot and ankle completed today does reveal a subacute fractures of the medial and lateral malleolus. The lateral malleolus fracture was seen on the patient's prior exam the medial malleolus fracture may be new in the interval and this would be considered an unstable ankle fracture. There is interval 6 mm displacement of the lateral malleolus. There is a deep soft tissue ulcer at the plantar heel with no clear radiographic findings of a contagious osteomyelitis at this time. Orthooedics was consulted for this. 08/22/2023 Patient evaluated in follow-up today resting in bed. She was taken off of the Lasix remains off at this time. Bladder scan was requested and not done yesterday to rule out urinary retention, creatinine today is increased up to 2.56. Bladder scan was done require urinary straight catheterization of 550 mL taken out. Urinalysis was sent which is significantly abnormal. Patient is also noted to have multiple genital lesions which appear wartlike she admits to not having any routine gynecological screenings for many years. She is not having any vaginal bleeding or discharge. Renal ultrasound has been ordered to rule out any obstructive uropathy. 08/23/2023 Patient is evaluated today in follow-up patient had a cardiac event with cardiac arrest speech therapist early intervention around 445 AM with initial rhythm slowing asystole patient was started on CPR with ACS protocol patient did receive ROSC after 6 to 8 minutes and was transferred to the intensive care unit. Patient upon arrival to the intensive care unit had another episode of cardiac arrest patient had bradycardia while on pressors in the ICU patient was intubated following the first cardiac arrest and is currently on the mechanical ventilator 50% FiO2. Chest x-ray showing similar interstitial and patchy component airspace disease right greater than left. There is a possible trace left pleural effusion. A brain CT which shows no acute intracranial process. Blood work today shows a white blood cell count of 13.8, hemoglobin 9.5, sodium level of 135, BUN of 62, creatinine of 2.76. AST ALT and alk phosphatase are significantly elevated consistent with a shock liver. TSH 3.310. Urinalysis is abnormal. Her urine culture is showing gram-negative bacilli patient is covered for the urinary tract infection as well as aspiration with IV Zosyn being managed by infectious disease. Patient is currently sedated with propofol and did require vasopressor support with Levophed which has been weaned at this time. Will discontinue the gabapentin patient is continued on aspirin Plavix and statin has been placed on hold. There is concern for possible arrhythmia precipitating the asystole additionally we need to rule out embolism and a D-dimer has been ordered. 08/24/2023 Patient is seen in follow-up today continues in the ICU on mechanical ventilation. FiO2 is 50% although titrating and was just placed at 40% with a PEEP of 5. Chest x-ray today shows that the ET tube is 7 mm from the sonam suggesting a pulled back 2 cm and reassess and also suspected underlying vascular congestion. Neuro is following and per nursing staff patient is following some simple commands and undergoing sedation holidays. Patient noted to have reduced EF of 30 to 35% and cardiology had been following. Will reconsult and appreciate input and recommendations. patient did have dialysis catheter removed and sent for cultures which are pending. Infectious disease following and patient is maintained on antibiotic. D-dimer is elevated above 16 and will attempt to obtain a VQ scan.57-year-old female came in with complaints of shortness of breath and orthopnea found to be in congestive heart failure exacerbation patient has congestive heart failure with reduced ejection fraction in the past patient has increasing pedal edema. Patient also has an ulcer in the right foot stage III-IV which appeared to be infected we will consult wound care and infectious disease. Patient was on hemodialysis during last hospitalization her creatinine presently is 1.5 which is significantly improved patient potassium is 5.5, patient is on Entresto and Aldactone Aldactone will be held Entresto will be continued since she is receiving IV Lasix and expecting her potassium to improve if it does not improve or get worse then Entresto need to be discontinued as well. Patient has hypervolemic hyponatremia and hyperglycemia. 08/21/2023 Was evaluated today on the medical floor. Patient was continued on IV Lasix overnight however she was no longer reporting any shortness of breath and her lower extremity edema has improved. She was taken off of the Lasix at this time due to increased creatinine up to 2.31 additionally potassium remains elevated at 5.7. Echocardiogram comes back showing an improved ejection fraction of 60 to 65% because of this and also the hyperkalemia patient will not be continued on entresto. Patient was evaluated by infectious disease who felt like that heel ulcer on the right side was more likely a pressure injury stage III and is recommending local wound care to continue with Aquacel. Patient is reporting significant pain to the right foot and feels like it is fractured. Upon review of the patient's chart she did have a x-ray completed of this 12 days ago ordered by her lead presser Dr. Mayen. Ankle x-ray did review a mildly displaced acute distal fibular fracture. Repeat x-ray of the foot and ankle completed today does reveal a subacute fractures of the medial and lateral malleolus. The lateral malleolus fracture was seen on the patient's prior exam the medial malleolus fracture may be new in the interval and this would be considered an unstable ankle fracture. There is interval 6 mm displacement of the lateral malleolus. There is a deep soft tissue ulcer at the plantar heel with no clear radiographic findings of a contagious osteomyelitis at this time. Orthooedics was consulted for this. 08/22/2023 Patient evaluated in follow-up today resting in bed. She was taken off of the Lasix remains off at this time. Bladder scan was requested and not done yesterday to rule out urinary retention, creatinine today is increased up to 2.56. Bladder scan was done require urinary straight catheterization of 550 mL taken out. Urinalysis was sent which is significantly abnormal. Patient is also noted to have multiple genital lesions which appear wartlike she admits to not having any routine gynecological screenings for many years. She is not having any vaginal bleeding or discharge. Renal ultrasound has been ordered to rule out any obstructive uropathy. 08/23/2023 Patient is evaluated today in follow-up patient had a cardiac event with cardiac arrest speech therapist early intervention around 445 AM with initial rhythm slowing asystole patient was started on CPR with ACS protocol patient did receive ROSC after 6 to 8 minutes and was transferred to the intensive care unit. Patient upon arrival to the intensive care unit had another episode of cardiac arrest patient had bradycardia while on pressors in the ICU patient was intubated following the first cardiac arrest and is currently on the mechanical ventilator 50% FiO2. Chest x-ray showing similar interstitial and patchy component airspace disease right greater than left. There is a possible trace left pleural effusion. A brain CT which shows no acute intracranial process. Blood work today shows a white blood cell count of 13.8, hemoglobin 9.5, sodium level of 135, BUN of 62, creatinine of 2.76. AST ALT and alk phosphatase are significantly elevated consistent with a shock liver. TSH 3.310. Urinalysis is abnormal. Her urine culture is showing gram-negative bacilli patient is covered for the urinary tract infection as well as aspiration with IV Zosyn being managed by infectious disease. Patient is currently sedated with propofol and did require vasopressor support with Levophed which has been weaned at this time. Will discontinue the gabapentin patient is continued on aspirin Plavix and statin has been placed on hold. There is concern for possible arrhythmia precipitating the asystole additionally we need to rule out embolism and a D-dimer has been ordered. 08/24/2023 Patient is seen in follow-up today continues in the ICU on mechanical ventil ation. FiO2 is 50% although titrating and was just placed at 40% with a PEEP of 5. Chest x-ray today shows that the ET tube is 7 mm from the sonam suggesting a pulled back 2 cm and reassess and also suspected underlying vascular congestion. Neuro is following and per nursing staff patient is following some simple commands and undergoing sedation holidays. Patient noted to have reduced EF of 30 to 35% and cardiology had been following. Will reconsult and appreciate input and recommendations. patient did have dialysis catheter removed and sent for cultures which are pending. Infectious disease following and patient is maintained on antibiotic. D-dimer is elevated above 16 and will atte mpt to obtain a VQ scan. 08/25/23 : Patient seen and evaluated at bedside, patient extubated around noon, transition to 5 L of oxygen to nasal cannula. Family at bedside, blood work reviewed hemoglobin 10.3, serum chemistry reviewed sodium 140 potassium 4.8 BUN 57 creatinine 2.49 calcium of 7. 08/26/23 : Patient seen and evaluated at bedside, patient remains in medical ICU, does complain of chest pain from CPR. Patient has been weaned off dopamine, cardiology following, blood work reviewed, hemoglobin 8.5 platelet count of 217, serum chemistry shows sodium 141 BUN 51 creatinine 2.28. Followed up by nephrology as well MARYLOU secondary to ATN continue to monitor intake and output 08/27/23: Patient seen and evaluated bedside, on evaluation patient is disoriented, patient is drowsy however likely having acute delirium. Seen by cardiology echocardiogram shows preserved ejection fraction continue with current medical management, patient on Precedex for acute delirium, continue to remain on oxygen supplementation with nasal cannula blood work reviewed CBC showed WBC 8.2 hemoglobin 8.6 serum chemistry showed creatinine of 2.22. Patient remains delirious, daughter at bedside all questions answered 08/28/2023 Patient was agitated earlier requiring Seroquel and Placed on Precedex because she was has risk to self and others Currently when I saw the patient she was sleepy However she is not tachypneic show does not look in pain. Vitals are stable She is saturating 91% on 2 L oxygen via nasal cannula She remains on Zosyn for pneumonia and UTI She is on normal saline at 50 mL/h 08/29/2023 Patient remains sleepy, she still has some encephalopathy But she is on Precedex which will be tapered off by pulmonary team today to assess her mentation as well. Patient has been followed by neurology for suspected anoxic brain injury after her cardiac arrest and return of circulation on 08/22. There is no evidence of seizure-like activity She has catheter tip infection with culture growing Corynebacterium species and she is currently covered with Zosyn which also help for her right heel pressure ulcer and aspiration pneumonia and UTI. Cardiology evaluated the patient and there is no clear evidence for her cardiac arrest although she has history of coronary artery disease and previous stents. Currently with no chest pain. She remains on aspirin and Plavix, gentle hydration, IV steroids 08/30/2023 Today her sedation remains off however patient mentation not completely resolved, it is somewhat better as she was more sleepy yesterday She is eating okay, swallowing is fine She was started on IV Lasix twice daily per corn shucker. She has good urine output and normal send discontinued She is hemodynamically stable and oxygenation is acceptable Remains on aspirin and Plavix and Seroquel 08/31/23: Seen and evaluated at bedside, patient remains on 4 L of oxygen, blood work reviewed, WBC 7.3 hemoglobin 9.1 platelet count of 203 glucose 119. CBC reviewed showed WBC 7.3 hemoglobin 9.1 platelet count of 203.. Neurology consulted and following. Patient is awake and alert able to answer questions and follow commands sister at bedside all questions answered 09/01/23: Seen and evaluated at bedside, patient vitals reviewed, serum chemistry reviewed sodium 145 potassium 4.6 creatinine 2.71, CBC reviewed patient remains on IV Zosyn , appreciate input from nephrology continue patient on IV Lasix, delirium persist 09/02/23: Patient seen and evaluated bedside, patient been admitted for cardiopulmonary arrest, respiratory failure s/p extubation on nasal cannula however continues to remain delirious. Blood work reviewed hemoglobin 8.8, platelet count 226, serum chemistry reviewed creatinine 2.55 potassium 4.5. MRI brain has been ordered which is pending, patient remains disoriented 09/03/2023 Patient is seen in follow-up status post recent extubation maintained on a few liters of pulmonary chart reader following closely. Cardiology following as well and adjusted medications recommending continuing with current medication regimen. No change in mentation as patient continues with periods of confusion and restlessness. Medications being adjusted and Ativan as needed has been added. Continue Seroquel. Patient will answer questions appropriately and discuss her health history and can recall her doctors names but will ramble on regarding something irrelevant during conversation. Patient is redirectable. Patient continues with partial cast noted on the lower extremity. Patient continues on IV Lasix and kidney functions are improving nephrology following closely. Plan is for patient to possibly move out of the ICU. Will have PT/OT therapy evaluate the patient and discuss further with consultations along with case management regarding possible ECF versus discharge planning. 09/04/2023 Patient seen in follow-up today and continues to have periods of confusion and restlessness. Patient continues in the ICU with multiple medical consultations following. Hemoglobin was found to be less than 7 today and will transfuse 1 unit of PRBC. Sodium 147 and recommend repeat labs as well. Nephrology is following and patient is continued on IV Lasix. MRI of the brain remains pending and neurology is following. 09/05/2023 Patient is seen and evaluated today continues to be in the ICU needs continuous reinforcement on keeping oxygen on. Patient does have a patient safety attendant at the bedside. Patient is currently resting although remains confused and anxious and agitated at times. Hemoglobin is stable above 7 status post 1 unit of PRBC. Patient continues on IV Lasix daily and nephrology following closely. Patient to continue on IV antibiotics with infectious disease following. 09/06/2023 Patient seen in follow-up today continues to be sleepy at this time although when awake patient is extremely restless and agitated requiring sitter at the bedside. Adjustments to medications being made and Risperdal is being increased and will continue with Seroquel. Ativan as needed. Patient's hemoglobin is stable with no active bleeding noted. Neurology following as patient continues to be unable to obtain an MRI and will have a repeat EEG as well as CT brain per neurology. Patient is afebrile and is continued on antibiotics with infectious disease following. Review of systems: Unable to completely assess as patient is sleeping All medications have been reviewed Active Medications Acetaminophen (Acetaminophen Tab 325 Mg Tab) 650 mg PO Q6HR PRN PRN Reason: Fever and/ or Pain Last Admin: 09/05/23 10:25 Dose: 650 mg Albuterol/Ipratropium (Ipratropium-Albuterol 3 Ml Neb) 3 ml INHALATION RT-QID PRN PRN Reason: Dyspnea Amlodipine Besylate (Amlodipine 5 Mg Tab) 5 mg PO DAILY [facility] Last Admin: 09/06/23 09:35 Dose: 5 mg Aspirin (Aspirin 81 Mg) 81 mg PO DAILY [facility] Last Admin: 09/06/23 09:36 Dose: 81 mg Atorvastatin Calcium (Atorvastatin 40 Mg Tab) 40 mg PO DAILY [facility] Last Admin: 09/06/23 09:35 Dose: 40 mg Clopidogrel Bisulfate (Clopidogrel 75 Mg Tab) 75 mg PO DAILY [facility] Last Admin: 09/06/23 09:36 Dose: 75 mg Darbepoetin Frantz (Darbepoetin Frantz 40 Mcg/0.4 Ml Syringe) 40 mcg SQ Q7D [facility] Last Admin: 09/06/23 11:45 Dose: 40 mcg Dextrose/Water (Dextrose 50% Syringe 50 Ml) 25 ml IVP PER PROTOCOL PRN; Protocol PRN Reason: Hypoglycemia Last Admin: 08/23/23 21:17 Dose: 25 ml Dextrose/Water (Dextrose 50% Syringe 50 Ml) 50 ml IVP PER PROTOCOL PRN; Protocol PRN Reason: Hypoglycemia Docusate Sodium (Docusate 100 Mg Cap) 100 mg PO BID [facility] Last Admin: 09/07/23 00:08 Dose: Not Given Folic Acid (Folic Acid 1 Mg Tab) 1 mg PO DAILY [facility] Last Admin: 09/06/23 14:49 Dose: Not Given Furosemide (Furosemide 10 Mg/Ml 4 Ml Vial) 40 mg IV DAILY [facility] Last Admin: 09/06/23 09:36 Dose: 40 mg Heparin Sodium (Porcine) (Heparin Sodium,Porcine 5,000 Unit/Ml 1 Ml Vial) 5,000 unit SQ Q12HR [facility] Last Admin: 09/06/23 22:31 Dose: Not Given Piperacillin Sod/Tazobactam (Sod 3.375 gm/ Sodium Chloride) 100 mls @ 25 mls/hr IVPB Q12HR [facility]; Protocol Last Admin: 09/06/23 21:21 Dose: 25 mls/hr Dextrose/Water (Dextrose 5%-Water Iv Soln) 1,000 mls @ 50 mls/hr IV .Q20H [facility] Last Admin: 09/07/23 01:00 Dose: 50 mls/hr Insulin Aspart (Insulin Aspart (Novolog) 100 Unit/Ml Vial) 0 unit SQ ACHS [facility]; Protocol Last Admin: 09/06/23 21:07 Dose: Not Given Isosorbide Mononitrate (Isosorbide Mononitrate Er 30 Mg Tab.Er.24h) 30 mg PO DAILY [facility] Last Admin: 09/06/23 09:36 Dose: 30 mg Lidocaine (Lidocaine 4% Patch) 1 patch TOPICAL DAILY [facility]; Protocol Last Admin: 09/06/23 09:34 Dose: 1 patch Lorazepam (Lorazepam 1 Mg/0.5 Ml Vial) 0.5 mg IV Q2HR PRN PRN Reason: Anxiety Last Admin: 09/07/23 03:25 Dose: 0.5 mg Metoprolol Tartrate (Metoprolol Tartrate 12.5 Mg Tab) 12.5 mg PO BID [facility] Last Admin: 09/07/23 00:08 Dose: Not Given Morphine Sulfate (Morphine Sulfate 2 Mg/Ml Syringe) 2 mg IVP Q4HR PRN PRN Reason: Pain Scale 7 to 10 Last Admin: 09/06/23 10:04 Dose: 2 mg Multivitamins (Multivitamins, Thera 1 Each Tab) 1 each PO DAILY [facility] Last Admin: 09/06/23 14:49 Dose: Not Given Quetiapine Fumarate (Quetiapine 50 Mg Tab) 150 mg PO BID [facility] Last Admin: 09/07/23 00:08 Dose: Not Given Risperidone (Risperidone 0.25 Mg Tab) 0.25 mg PO BID [facility] Last Admin: 09/06/23 22:31 Dose: Not Given Ropinirole HCl (Ropinirole Hcl 1 Mg Tab) 1 mg PO HS PRN PRN Reason: restless legs Ropinirole HCl (Ropinirole Hcl 1 Mg Tab) 1 mg PO HS [facility] Last Admin: 09/07/23 00:08 Dose: Not Given Thiamine HCl (Thiamine 100 Mg Tab) 100 mg PO DAILY [facility] Last Admin: 09/06/23 14:49 Dose: Not Given PHYSICAL EXAMINATION: GENERAL: The patient is on nasal cannula, disoriented, lethargic although arousable, alert and oriented x 1, elderly appearing, unkept, ill-appearing HEENT: Pupils are round and equally reacting to light. EOMI. CARDIOVASCULAR: S1 and S2 muffled PULMONARY: Decreased breath sounds bilaterally with some scattered rhonchi noted ABDOMEN: Soft, nontender, nondistended, normoactive bowel sounds. No palpable organomegaly. MUSCULOSKELETAL: No joint swelling or deformity. EXTREMITIES: Right lower extremity bandage with partial cast noted NEUROLOGICAL: pupils reactive unable to assess completely as patient is confused SKIN: Patient has right plantar surface ulcer on the posterior foot stage III-IV with areas of necrotic tissue Assessment: * Asystole/cardiopulmonary arrest x 2 with CPR/ROSC * Respiratory failure requiring intubation s/p extubation 08/25/2023 * Acute metabolic encephalopathy * Congestive heart failure with systolic dysfunction acute on chronic exacerbation * Ischemic cardiomyopathy with improved EF * Acute kidney injury secondary to ATN on chronic kidney disease stage III * Urinary tract infection with E. coli * Subacute fracture of the medial and lateral malleolus, orthopedics following * Right heel stage III pressure injury continue local wound care with aquacel ID following. * Genital lesions, will need staffing rn follow up outpatient for routine screenings * Hypertension * Hyperlipidemia * Type 2 diabetes mellitus uncontrolled hgb a1c 12.1 * Severe pulmonary hypertension * COPD without any acute exacerbation * Peripheral neuropathy * Obesity with a body mass index of 30.8 * GI prophylaxis * DVT prophylaxis * Full code Plan: * Patient continues to remain critically ill, was intubated s/p extubation, weaned off to nasal cannula 4 L. Patient is in the ICU although is being considered to transfer out to the stepdown unit once a bed is available. Patient has been tolerating weaning FiO2. Patient continues to be found to have no oxygen on exam she continues to take it off. rheostat assembler at bedside * In regards to acute encephalopathy likely post ICU delirium, neurology following and will continue with frequent reorientation, patient is off Precedex, CT head negative for acute intracranial process EEG is abnormal with background slowing encephalopathy noted, MRI brain requested by neurology, although unable to obtain as patient continues to be confused and restless at times. Repeat CT and EEG is ordered * Hemoglobin improved above 7, status post a unit of PRBC and recommend follow- up labs. No active bleeding noted. * In regards to urinary tract infection, chronic nonhealing wound and right heel, urine cultures grew E. coli. Patient treated with IV antibiotic received IV Zosyn, end date determined by infectious disease. Will discuss with infectious disease regarding continued antibiotic therapy * In regards to aspiration pneumonia,, continue patient on IV Zosyn managed by infectious disease, continue aspiration precautions and head of bed elevated and supervision with meals * In regards to cardiomyopathy patient weaned off pressor support, dopamine weaned off as well, continue current medications including aspirin, Plavix, cardiology following continue IV [facility] nephrology following, kidney function is improving * In regards to suspicion for pulm embolism venous ultrasound lower extremity ordered no evidence of DVT noted on subcu heparin for DVT prophylaxis * In regards to diabetes mellitus continue monitoring Accu-Cheks before meals and at bedtime, continue sliding scale and will adjust accordingly * Will discuss with case management/social work regarding discharge planning and will need PT/OT therapy evaluation to discuss overall treatment plan moving forward. * Due to multiple complex medical issues, prognosis is guarded The impression and plan of care has been dictated by Mouna Rowley, Nurse Practitioner as directed. Dr. Wyatt MD I have performed a history and examination and MDM of this patient, discussed the same with the dictator, and agree with the dictator's assessment and plan as written ,documented as a scribe. Based on total visit time, I have performed more than 50% of the visit. Objective - Vital Signs Vital signs: Vital Signs Temp 97.8 F 09/06/23 00:00 Pulse 78 09/06/23 04:00 Resp 18 09/06/23 04:00 BP 117/68 09/06/23 04:00 Pulse Ox 91 L 09/06/23 08:31 FiO2 3 09/02/23 04:00 Intake & Output 09/05/23 09/06/23 09/06/23 18:59 06:59 18:59 Intake Total 385 360 Output Total 900 1800 Balance -515 -1440 Weight 66.6 kg Intake: IV 385 360 Dextrose 5% in Water 1, 350 320 000 ml @ 50 mls/hr IV . Q20H [facility] Rx#:[id number] Normal Saline Carrier @ 35 40 5mL/hr Output: Urine 900 1800 Other: Voiding Method Indwelling Catheter Indwelling Catheter ABP, PAP, CO, CI - Last Documented Arterial Blood Pressure 125/73 - Labs CBC & Chem 7: 09/06/23 04:28 09/06/23 04:28 Labs: Abnormal Lab Results - Last 24 Hours (Table) 09/05/23 09/05/23 09/06/23 Range/Units 16:21 20:19 04:28 RBC 2.55 L (3.80-5.40) m/uL Hgb 7.6 L (11.4-16.0) gm/dL Hct 24.7 L (34.0-46.0) % MCHC 30.7 L (31.0-37.0) g/dL RDW 18.8 H (11.5-15.5) % Chloride (98-107) mmol/L BUN (7-17) mg/dL Creatinine (0.52-1.04) mg/dL Glucose (74-99) mg/dL POC Glucose (mg/dL) 127 H 130 H (70-110) mg/dL Calcium (8.4-10.2) mg/dL 09/06/23 09/06/23 Range/Units 04:28 06:40 RBC (3.80-5.40) m/uL Hgb (11.4-16.0) gm/dL Hct (34.0-46.0) % MCHC (31.0-37.0) g/dL RDW (11.5-15.5) % Chloride 109 H (98-107) mmol/L BUN 52 H (7-17) mg/dL Creatinine 1.71 H (0.52-1.04) mg/dL Glucose 126 H (74-99) mg/dL POC Glucose (mg/dL) 161 H (70-110) mg/dL Calcium 8.2 L (8.4-10.2) mg/dL
[2023-09-07 06:49] LABS: Anisocytosis Slight; Basophils # (A) 0.1 k/uL (0-0.2); Basophils % (A) 1 %; Eosinophils # (A) 0.3 k/uL (0-0.7); Eosinophils % (A) 5 %; HCT 26.8 % (34.0-46.0); HGB 8.3 gm/dL (11.4-16.0); Hypochromasia Marked; Lymphocytes # (A) 0.7 k/uL (1.0-4.8); Lymphocytes % (A) 12 %; MCHC 30.9 g/dL (31.0-37.0); MCV 97.4 fL (80.0-100.0); Macrocytosis Slight; Mean Platelet Volume 9.1; Monocytes # (A) 0.4 k/uL (0-1.0); Monocytes % (A) 6 %; Neutrophils # (A) 4.3 k/uL (1.3-7.7); Neutrophils % (A) 72 %; Platelet Count 231 k/uL (150-450); Poikilocytosis Slight; RBC 2.75 m/uL (3.80-5.40)
[2023-09-07 07:26] LABS: ALT 24 U/L (4-34); AST 24 U/L (14-36); African American GFR (CKD) 40 (>60 ml/min/1.73 sqM); Albumin 2.5 g/dL (3.5-5.0); Alkaline Phosphatase 234 U/L (38-126); Anion Gap 7 mmol/L; Blood Urea Nitrogen 40 mg/dL (7-17); Calcium 8.2 mg/dL (8.4-10.2); Carbon Dioxide 29 mmol/L (22-30); Chloride 108 mmol/L (98-107); Glucose 94 mg/dL (74-99); Non-African American GFR(CKD) 35 (>60 ml/min/1.73 sqM); Potassium 3.8 mmol/L (3.5-5.1); Sodium 144 mmol/L (137-145); Total Bilirubin 0.5 mg/dL (0.2-1.3); Total Protein 5.9 g/dL (6.3-8.2)
--- NOTE | 2023-09-07 07:58 | XR ---
EXAMINATION TYPE: XR chest 1V portable DATE OF EXAM: 09/07/2023 Comparison: 08/29/2023 Clinical History: 58-year-old female shortness of breath Findings: Heart is moderately enlarged. Perihilar interstitial opacities which have worsened in the interval. L eft CVC tip in the right atrium. There may be small effusions. Impression: Interval development of CHF with patchy perihilar pulmonary edema.
--- NOTE | 2023-09-07 10:44 | P.PN ---
Subjective Progress Note Date: 09/07/23 Principal diagnosis: Cardiopulmonary arrest x 2 This is a 57-year-old female who was admitted back on August 18, for a right heel wound. Early this morning, the patient had a cardiopulmonary arrest. The patient apparently was initially found to be bradycardic, and then had asystole. She received 3 rounds of epinephrine. She arrived to the intensive care unit this morning at 630, having been intubated on the floor by anesthesia. In the ICU, the patient had an episode of pulseless electrical activity, and asystole, and received 2 rounds of epinephrine, a dose of atropine, and some sodium bicarbonate. I came into the intensive care unit this morning, early, to place a left internal jugular triple-lumen catheter, and a right femoral arterial line. Currently, the patient is on volume assist-control, rate 16, tidal volume 400, FiO2 50%, PEEP of 5. The most recent blood gases show pO2 of 75, pCO2 49, pH is 7.44. Arterial blood gases shortly after intubation showed a pO2 of 268, pCO2 of 38, and a pH of 7.25. The patient is currently on norepinephrine at 1.4 mcg/min, and saline at 50 cc an hour. Current labs include a white count 13.8, hemoglobin 9.5, hematocrit 31, and a platelet count of 257,000. PT was 12.9 with an INR of 1.2. Sodium 135, potassium 4.9, chlorides 111, CO2 19, anion gap 5, BUN 62, creatinine 2.76. The patient's AST is 468. ALT is 286. Albumin is 2.1. Urine, is suspicious for possible infection. Brain CT Today, Shows No Acute Intracranial Process. Chest x-ray shows bilateral patchy airspace disease, right greater than left. 08/30/2023, the patient is being seen for a follow-up. Remains encephalopathic, speech at times is garbled. Follows commands. She is not consistently having a conversation. A repeat CAT scan of the brain was done on 08/28/2023 and the findings showed no acute abnormalities. EEG was also done on 08/29/2023 and it showed abnormal slowing and mild to moderate degree of encephalopathy with generalized cerebral dysfunction. The patient is clinically stable and hemodynamically stable. No respiratory distress. Adequate swallow without any risk of aspiration. Chest x-ray from today showing increased incisional markings bilaterally, could be a component of fluid overload. Meanwhile, the patient is on no pressors. She is afebrile. She is on oxygen at 3 L. Blood work from today shows a sodium level of 142, BUN of 56 with a creatinine of 2.98 and a creatinine remained stable with a potassium level of 5 and a serum bicarb of 18. Serum cortisol 15. TSH is at 2.5. No hypothermia. The patient remains [facility], she remains on aspirin 81 mg p.o. daily combination with Plavix. She is on IV iron. She is covered empirically with IV Zosyn. She is on Seroquel 150 mg p.o. twice a day. Agitation is adequately controlled. 08/31/2023, the patient continues to have episodes of agitation. Overnight, the patient was quite restless and agitated. She had to be placed on Precedex. In itially at 0.8 mcg later on dropped down to 0.4 mcg and she is quite sedated at this point in time and the medication will be discontinued patient remains on 3 L of oxygen by nasal cannula. Moving all 4 extremities. Arousable and seems to be much comfortable this morning. Fluid balance is -1.9 L over the past 24 hours and the patient has responded to diuretics. Electrolytes are all stable with a BUN of 56 and a creatinine of 2.6 and a sodium is at 144, WBC count is at 7.3 with a hemoglobin 9.1. Remains on Seroquel 150 mg p.o. twice daily. Remains on IV Lasix 40 mg every 12 hours with a negative fluid balance. Remains on aspirin and Plavix. Rest of the medications are essentially unchanged for now. IV fluids are currently at KVO. 09/01/2023, the patient is much more comfortable. Awake and alert and communicating on low-dose Precedex at 0.2 mcg/kg/h. She is also on Seroquel. No significant agitation. Communicating moving all 4 extremities other than limitation. She is on 3 L of oxygen by nasal cannula. No respiratory distress. White cell count of 9.8 with a hemoglobin 8.6, BUN is 55 with a creatinine of 2.7. Fluid balance over the past 24 hours is -3 L. She is being diuresed with IV Lasix and she is currently on 40 mg IV every 12 hours. No focal neurological deficits. Will continue Reevaluate today on 09/02/2023, patient remains in the ICU, remains agitated, re stless, patient is receiving Seroquel, she is also on Zyprexa, her Seroquel dose is 150 twice daily, today I added Ativan 0.5 mg every 2 hours as needed. Patient was extubated on 08/24, she had intermittent episodes of supraventricular tachycardia, being addressed by cardiology patient is confused and encephalopathic. WBC count today is 7.4 hemoglobin 8.8 basic metabolic profile is normal BUN is 52 creatinine 2.55, steadily improving. Remains on IV Lasix, patient is nonoliguric, her mentation seems to be the major issue with significant encephalopathy and confusion Reevaluate today on 09/03/2023, patient remains in the ICU, still requiring Ativan intermittently and she is on Seroquel, patient is more calm and relaxed today, although she does have. Of agitation and restlessness. Continues to have a sitter at bedside. Patient is not requiring any Precedex, hence I plan to transfer the patient out to a cardiac floor with monitor. CBC is normal except for hemoglobin of 8.1 electrolytes are normal BUN is 54 creatinine 2.33, steadily improving compared to creatinine over the last few days Reevaluated today on 09/04/2023, patient is about the same, remains in the ICU as an overflow, patient has intermittent episodes of agitation and restlessness, remains on Seroquel, remains on Ativan as needed, patient is requiring intermittent medications for sedation, she is not requiring any more Precedex. Patient has a bedside sitter, and she needs almost constant attention. Labs including CBC and basic metabolic profile are normal BUN however is 67 creatinine 2.04 Reevaluated 09/05/2023, patient is about the same, continues to have intermittent episodes of agitation and restlessness, she is on D5W@50 mL/h she is also on Ativan 0 0.5 mg every 4 hours as needed intermittently receiving Lasix and she is on it now maintenance 40 mg IV push every 12 hours I cut it down to once a day. Continues to require sitter at bedside because of her intermittent episodes of agitations, today I added Risperdal 0.25 mg daily. WBC count is 6.5 hemoglobin 7.3 basic metabolic profile is normal BUN is 57 creatinine 1.89, improving Reevaluated on 09/06/2023, patient remains in the ICU, remains agitated intermittently, combative, when I evaluated the patient she was very calm and resting, sleeping, however apparently overnight the patient was extremely agitated and did not sleep much last night. Her Risperdal dose will be increased to 0.25 mg twice daily. The meantime patient is on many other medications to keep her calm and sedated. Patient has a sitter at bedside, does not seem to be in any distress labs today are unremarkable except hemoglobin of 7.6 basic metabolic profile is normal BUN is 52 creatinine 1.71 steadily improving over the last week Patient was reevaluated today on 09/07/2023, patient remains in the ICU, patient continues to have intermittent episodes of confusion, agitation, restlessness, does not seem to be in any respiratory distress, although her chest x-ray did show evidence of pulmonary edema and I recommended a dose of Lasix 40 mg IV push to be given now. Patient is on different types of medications to keep her calm, however does not seem to be helping, and now I am recommending a psychiatric consultation on this patient. WBC count is 6.0 hemoglobin 8.3 electrolytes are normal BUN is 40 creatinine 1.61, steadily improving. Patient is receiving S eroquel 150 twice daily she is also receiving Risperdal 0.25 twice daily, Ativan as needed but she is not requiring much Ativan. Patient is also on multiple cardiac meds. Objective - Vital Signs Vital signs: Vital Signs Temp 98.6 F 09/07/23 08:00 Pulse 87 09/07/23 08:00 Resp 17 09/07/23 08:00 BP 156/78 09/07/23 08:00 Pulse Ox 94 L 09/07/23 08:00 FiO2 3 09/02/23 04:00 Intake & Output 09/06/23 09/07/23 09/07/23 18:59 06:59 18:59 Intake Total 600 Output Total 1200 300 Balance -600 -300 Weight 66.6 kg 64.3 kg Intake: IV 600 Dextrose 5% in Water 1, 600 000 ml @ 50 mls/hr IV . Q20H [facility] Rx#:[id number] Output: Urine 1200 300 Other: Voiding Method Indwelling Catheter Indwelling Catheter ABP, PAP, CO, CI - Last Documented Arterial Blood Pressure 125/73 - Exam PHYSICAL EXAMINATION General: Reveals a 58-year-old female, in no distress, agitated and restless, confused HEENT: Pupils are round and equally reacting to light. EOMI. CARDIOVASCULAR: S1 and S2 present. No murmurs, rubs, or gallops Pulmonary: Minimal crackles at the bases no rhonchi no wheezes ABDOMEN: Soft, nontender, nondistended, normoactive bowel sounds. No palpable organomegaly. MUSCULOSKELETAL: No joint swelling or deformity. EXTREMITIES: No cyanosis, clubbing, bilateral pedal edema NEUROLOGICAL: Agitated restless confused Psychiatric: Could not assess for SKIN: Patient has stage III decubitus ulcer - Labs CBC & Chem 7: 09/07/23 05:33 09/07/23 05:33 Labs: Abnormal Lab Results - Last 24 Hours (Table) 09/06/23 09/07/23 09/07/23 Range/Units 11:15 05:33 05:33 RBC 2.75 L (3.80-5.40) m/uL Hgb 8.3 L (11.4-16.0) gm/dL Hct 26.8 L (34.0-46.0) % MCHC 30.9 L (31.0-37.0) g/dL RDW 19.0 H (11.5-15.5) % Lymphocytes # 0.7 L (1.0-4.8) k/uL Chloride 108 H (98-107) mmol/L BUN 40 H (7-17) mg/dL Creatinine 1.61 H (0.52-1.04) mg/dL POC Glucose (mg/dL) 160 H (70-110) mg/dL Calcium 8.2 L (8.4-10.2) mg/dL Alkaline Phosphatase 234 H (38-126) U/L Total Protein 5.9 L (6.3-8.2) g/dL Albumin 2.5 L (3.5-5.0) g/dL Assessment and Plan Assessment: Impression: Cardiopulmonary arrest x 2 Acute hypoxic respiratory failure requiring intubation and mechanical ventilation extubated on 08/24, presently on room air. Acute hypoxic encephalopathy related to cardiac arrest History of diastolic congestive heart failure History of underlying coronary artery disease and successful stenting of proximal RCA Status post non-ST elevation myocardial infarction Stage III chronic kidney disease Right heel pressure ulcer stage III Subacute fracture of medial and lateral malleolus patient is requiring a soft cast in the right lower extremity History of underlying COPD History of peripheral neuropathy Dyslipidemia Type 2 diabetes Recommendation: Psychiatric consultation Lasix 40 mg IV push x 1 now as her chest x-ray is showing evidence of worsening pulmonary edema Continue Seroquel at 150 twice daily Increase Risperdal to 0.25 twice daily Continue Ativan as needed Continue diuretics but once daily Continue to monitor renal functioning, being followed by nephrology, renal status is improving Continue IV Zosyn for cellulitis. Continue subcu heparin for DVT prophylaxis Continue Imdur and Norvasc and Lipitor as well as Plavix and aspirin Continue sitter at bedside. Will continue to follow Time with Patient: Less than 30
[2023-09-07 11:03] LABS: Glucose,Whole Blood 198 mg/dL (70-110)
--- NOTE | 2023-09-07 13:14 | P.PN ---
Subjective Progress Note Date: 09/07/23 Patient is seen in follow-up for acute kidney injury. Renal function improving. On IV Lasix. Nonoliguric. Sitter present at bedside. Continued episodes of confusion and agitation. Vital signs are stable. General: Resting in bed. HEENT: On nasal cannula. LUNGS: No audible rhonchi or wheezes. HEART: Rate and Rhythm are regular. ABDOMEN: No distention. EXTREMITITES: 1+ edema. Objective - Vital Signs Vital signs: Vital Signs Temp 98.6 F 09/07/23 08:00 Pulse 87 09/07/23 08:00 Resp 17 09/07/23 08:00 BP 156/78 09/07/23 08:00 Pulse Ox 94 L 09/07/23 08:00 FiO2 3 09/02/23 04:00 Intake & Output 09/06/23 09/07/23 09/07/23 18:59 06:59 18:59 Intake Total 600 Output Total 1200 300 Balance -600 -300 Weight 66.6 kg 64.3 kg Intake: IV 600 Dextrose 5% in Water 1, 600 000 ml @ 50 mls/hr IV . Q20H [facility] Rx#:[id number] Output: Urine 1200 300 Other: Voiding Method Indwelling Catheter Indwelling Catheter ABP, PAP, CO, CI - Last Documented Arterial Blood Pressure 125/73 - Labs CBC & Chem 7: 09/07/23 05:33 09/07/23 05:33 Labs: Abnormal Lab Results - Last 24 Hours (Table) 09/06/23 09/07/23 09/07/23 Range/Units 11:15 05:33 05:33 RBC 2.75 L (3.80-5.40) m/uL Hgb 8.3 L (11.4-16.0) gm/dL Hct 26.8 L (34.0-46.0) % MCHC 30.9 L (31.0-37.0) g/dL RDW 19.0 H (11.5-15.5) % Lymphocytes # 0.7 L (1.0-4.8) k/uL Chloride 108 H (98-107) mmol/L BUN 40 H (7-17) mg/dL Creatinine 1.61 H (0.52-1.04) mg/dL POC Glucose (mg/dL) 160 H (70-110) mg/dL Calcium 8.2 L (8.4-10.2) mg/dL Alkaline Phosphatase 234 H (38-126) U/L Total Protein 5.9 L (6.3-8.2) g/dL Albumin 2.5 L (3.5-5.0) g/dL Assessment and Plan Plan: Assessment: 1. Acute kidney injury on chronic kidney disease secondary to ATN secondary to cardiorenal syndrome and cardiac arrest. Creatinine 1.5 admission and peaked at 2.98 this admission - 1.61 today. Patient was on hemodialysis in the past with last treatment being July 02, 2023. 2. Volume overload. Improving with diuresis. 3. Acute on chronic diastolic CHF. 4. Diabetes mellitus. 5. Right foot wound. 6. Coronary disease with cardiac stenting. 7. Status post PEA arrest with concern for anoxic encephalopathy. 8. Septic shock with urine culture positive for E. coli and catheter tip culture positive for Corynebacterium. On antibiotics. Off vasopressors. 9. Metabolic acidosis secondary to acute kidney injury and IV fluids. On oral bicarb. Improved. 10. Anemia. Iron deficiency noted. Status post IV iron. On Aranesp. Also received blood transfusion this admission. 11. Hypernatremia from lack of oral water intake and free water diuresis. Better with D5W. Plan: Maintain IV Lasix. Encouraged oral intake, including free water as able to tolerate. Maintain D5W. Sodium bicarb discontinued. Avoid nephrotoxins. Continue to monitor renal function and urine output.
--- NOTE | 2023-09-07 13:28 | P.PN ---
Subjective Progress Note Date: 09/07/23 Principal diagnosis: Reason for follow-up is right heel diabetic foot ulcer Patient is a 57-year-old female with a past medical history significant for diabetes mellitus hypertension hyperlipidemia history of renal insufficiency requiring dialysis currently not on dialysis and the patient also have a chronic nonhealing wound to the right heel area, present to the hospital with increasing shortness of breath and swelling concerning for fluid overload.Patient did have a cardiac arrest around 4 AM 08/23/2023 with the patient went into asystole got resuscitated intubated and transferred to the ICU subsequently have another cardiac arrest with PEA rhythm not resuscitated. On today's evaluation that is 09/07/2023, the patient continues to be afebrile, the patient is on 4 L nasal cannula oxygen and breathing comfortably, the Pt remains to be pleasantly confused and not a very good historian although asking when she can go home denies any chest pain or worsening cough vomiting or diarrhea reported by the sitter at the bedside. Patient did have white count of 6.0 creatinine is 1.61 Objective - Vital Signs Vital signs: Vital Signs Temp 98.6 F 09/07/23 08:00 Pulse 87 09/07/23 08:00 Resp 17 09/07/23 08:00 BP 156/78 09/07/23 08:00 Pulse Ox 94 L 09/07/23 08:00 FiO2 3 09/02/23 04:00 Intake & Output 09/06/23 09/07/23 09/07/23 18:59 06:59 18:59 Intake Total 600 Output Total 1200 300 Balance -600 -300 Weight 66.6 kg 64.3 kg Intake: IV 600 Dextrose 5% in Water 1, 600 000 ml @ 50 mls/hr IV . Q20H [facility] Rx#:[id number] Output: Urine 1200 300 Other: Voiding Method Indwelling Catheter Indwelling Catheter ABP, PAP, CO, CI - Last Documented Arterial Blood Pressure 125/73 - Exam GENERAL DESCRIPTION: Middle-aged female lying in bed in no distress RESPIRATORY SYSTEM: Unlabored breathing , decreased breath sounds at bases HEART: S1 S2 regular rate and rhythm , ABDOMEN: Soft , no tenderness EXTREMITIES: Right heel wound is currently dressed - Labs CBC & Chem 7: 09/07/23 05:33 09/07/23 05:33 Labs: Abnormal Lab Results - Last 24 Hours (Table) 09/06/23 09/07/23 09/07/23 Range/Units 11:15 05:33 05:33 RBC 2.75 L (3.80-5.40) m/uL Hgb 8.3 L (11.4-16.0) gm/dL Hct 26.8 L (34.0-46.0) % MCHC 30.9 L (31.0-37.0) g/dL RDW 19.0 H (11.5-15.5) % Lymphocytes # 0.7 L (1.0-4.8) k/uL Chloride 108 H (98-107) mmol/L BUN 40 H (7-17) mg/dL Creatinine 1.61 H (0.52-1.04) mg/dL POC Glucose (mg/dL) 160 H (70-110) mg/dL Calcium 8.2 L (8.4-10.2) mg/dL Alkaline Phosphatase 234 H (38-126) U/L Total Protein 5.9 L (6.3-8.2) g/dL Albumin 2.5 L (3.5-5.0) g/dL Assessment and Plan (1) Pressure ulcer of right heel, stage 3 Current Visit: No Status: Acute Code(s): L89.613 - PRESSURE ULCER OF RIGHT HEEL, STAGE 3 SNOMED Code(s): 63084897416830 (2) Type 2 diabetes mellitus with foot ulcer Current Visit: No Status: Acute Code(s): E11.621 - TYPE 2 DIABETES MELLITUS WITH FOOT ULCER; L97.509 - NON-PRESSURE CHRONIC ULCER OTH PRT UNSP FOOT W UNSP SEVERITY SNOMED Code(s): 961968282 (3) UTI (urinary tract infection) Current Visit: Yes Status: Acute Code(s): N39.0 - URINARY TRACT INFECTION, SITE NOT SPECIFIED SNOMED Code(s): 26907762 (4) Aspiration pneumonia Current Visit: Yes Status: Acute Code(s): J69.0 - PNEUMONITIS DUE TO INHALATION OF FOOD AND VOMIT SNOMED Code(s): 787280960 Plan: 1patient with chronic nonhealing wound to the right heel area which has been there for a couple of months now patient overall wound base looks clean with no slough tissue in the wound base 2-patient did have cardiac arrest requiring resuscitation in this patient who did have a chest x-ray with a right-sided infiltrate and question of aspiration pneumonia, the patient urine culture grew E. coli with some resistant pattern, sputum has been negative blood culture has been negative catheter tip cultures growing corynebacterium species more likely contamination with repeat blood culture negative no need for vancomycin. 3patient is afebrile white count remains remains to be normal 4- patient to continue with Zosyn and monitor clinical course closely Dictation was produced using [email or web address] dictation software. please excuse any grammatical, word or spelling errors. Time with Patient: Less than 30
[2023-09-07] MEDS: PANTOPRAZOLE 40 MG/10 ML VIAL IVP SCH (16:09)
[2023-09-07 16:13] LABS: Glucose,Whole Blood 69 mg/dL (70-110)
[2023-09-07 16:31] LABS: Glucose,Whole Blood 71 mg/dL (70-110)
[2023-09-07 20:31] LABS: Glucose,Whole Blood 140 mg/dL (70-110)
--- NOTE | 2023-09-07 22:47 | PN ---
PROGRESS NOTE DATE OF SERVICE: 09/07/2023 SUBJECTIVE: This 58-year-old woman was admitted with multiple medical issues including CHF acute exacerbation, acute hypoxic respiratory failure, cardiopulmonary arrest, is confused at this time. The patient is combative and the patient had cardiopulmonary arrest twice, medications were adjusted, and the patient is on high-dose psychiatric medications. Psychiatric evaluation has been requested by Dr. Trevino. The most recent chest x-ray which I reviewed personally showed severe cardiomegaly and evidence of pleural effusion also. PAST MEDICAL HISTORY: Reviewed. REVIEW OF SYSTEMS: Could not be taken. CURRENT MEDICATIONS: Reviewed include Norvasc, dose and rest of medications noted. PHYSICAL EXAMINATION: VITAL SIGNS: Pulse is 77, blood pressure 125/60, respirations 18. CHEST: Scattered rhonchi and crackles. ABDOMEN: Soft, nontender. NERVOUS SYSTEM: Could not be examined. The patient is restless. LABORATORY DATA: Hemoglobin 8.6, rest of the labs are noted. ASSESSMENT: 1. CHF acute exacerbation with acute hypoxic respiratory failure. 2. Cardiopulmonary arrest x2. 3. History of diastolic heart failure. 4. Status post [id number] myocardial infarction. 5. Acute on chronic kidney disease. 6. Change in mental status, metabolic encephalopathy. 7. History of ischemic cardiomyopathy with improved ejection fraction. 8. Right heel stage III ulcers. 9. Multiple complex medical issues. 10.Full code. RECOMMENDATIONS: Recommended to continue current management, continue symptomatic treatment, repeat labs. Psychiatric evaluation with adjustment of psych medications. The patient had a 2D echo on 08/19. Prognosis extremely guarded because of multiple complex medical conditions. Closely follow with multiple consultants. Further recommendations to follow. MMODL / IJN: [id number] /
[2023-09-08 06:11] LABS: Glucose,Whole Blood 150 mg/dL (70-110)
[2023-09-08 09:31] LABS: African American GFR (CKD) 42 (>60 ml/min/1.73 sqM); Anion Gap 1 mmol/L; Blood Urea Nitrogen 38 mg/dL (7-17); Calcium 7.7 mg/dL (8.4-10.2); Carbon Dioxide 34 mmol/L (22-30); Chloride 107 mmol/L (98-107); Glucose 105 mg/dL (74-99); Non-African American GFR(CKD) 37 (>60 ml/min/1.73 sqM); Potassium 3.3 mmol/L (3.5-5.1); Sodium 142 mmol/L (137-145)
[2023-09-08 09:39] LABS: Anisocytosis Slight; Basophils % (A) 1 %; Eosinophils # (A) 0.3 k/uL (0-0.7); Eosinophils % (A) 9 %; HCT 23.8 % (34.0-46.0); HGB 7.3 gm/dL (11.4-16.0); Hypochromasia Moderate; Lymphocytes # (A) 0.6 k/uL (1.0-4.8); Lymphocytes % (A) 18 %; MCH 29.2 pg (25.0-35.0); MCHC 30.6 g/dL (31.0-37.0); MCV 95.5 fL (80.0-100.0); Macrocytosis Slight; Mean Platelet Volume 8.9; Monocytes # (A) 0.3 k/uL (0-1.0); Monocytes % (A) 8 %; Neutrophils # (A) 2.1 k/uL (1.3-7.7); Neutrophils % (A) 61 %; Platelet Count 222 k/uL (150-450); Poikilocytosis Slight; RDW 18.6 % (11.5-15.5); WBC 3.4 k/uL (3.8-10.6)
--- NOTE | 2023-09-08 09:50 | XR ---
EXAMINATION TYPE: XR chest 1V portable DATE OF EXAM: 09/08/2023 Comparison: 09/07/2023 Clinical History: 58-year-old female CHF Findings: Left CVC tip within the right atrium. Heart mildly enlarged. Increasing perihilar and diffuse groundg lass opacities. Possible trace left effusion. Impression: Slight worsening in CHF with diffuse groundglass pulmonary edema.
[2023-09-08 11:26] LABS: Glucose,Whole Blood 135 mg/dL (70-110)
[2023-09-08] MEDS: POTASSIUM CHLORIDE ER 20 MEQ TAB.ER PO STA (11:26)
--- NOTE | 2023-09-08 11:57 | P.PN ---
Subjective Progress Note Date: 09/08/23 Patient is seen in follow-up for acute kidney injury. Renal function improving. On IV Lasix. Nonoliguric. Sitter present at bedside. Continued episodes of confusion and agitation. Vital signs are stable. General: Resting in bed. HEENT: On nasal cannula. LUNGS: No audible rhonchi or wheezes. HEART: Rate and Rhythm are regular. ABDOMEN: No distention. EXTREMITITES: 1+ edema. Objective - Vital Signs Vital signs: Vital Signs Temp 97.5 F L 09/08/23 09:15 Pulse 80 09/08/23 09:15 Resp 18 09/08/23 09:15 BP 168/82 09/08/23 09:15 Pulse Ox 96 09/08/23 09:15 FiO2 3 09/02/23 04:00 Intake & Output 09/07/23 09/08/23 09/08/23 18:59 06:59 18:59 Intake Total 1250 120 Output Total 1475 600 Balance -225 -480 Weight 60.5 kg Intake: IV 1000 Dextrose 5% in Water 1, 1000 000 ml @ 50 mls/hr IV . Q20H [facility] Rx#:[id number] Oral 250 120 Output: Urine 1475 600 Other: Voiding Method Indwelling Catheter Indwelling Catheter Indwelling Catheter ABP, PAP, CO, CI - Last Documented Arterial Blood Pressure 125/73 - Labs CBC & Chem 7: 09/08/23 09:00 09/08/23 09:00 Labs: Abnormal Lab Results - Last 24 Hours (Table) 09/07/23 09/07/23 09/07/23 Range/Units 11:02 16:07 20:29 WBC (3.8-10.6) k/uL RBC (3.80-5.40) m/uL Hgb (11.4-16.0) gm/dL Hct (34.0-46.0) % MCHC (31.0-37.0) g/dL RDW (11.5-15.5) % Lymphocytes # (1.0-4.8) k/uL Potassium (3.5-5.1) mmol/L Carbon Dioxide (22-30) mmol/L BUN (7-17) mg/dL Creatinine (0.52-1.04) mg/dL Glucose (74-99) mg/dL POC Glucose (mg/dL) 198 H 69 L 140 H (70-110) mg/dL Calcium (8.4-10.2) mg/dL 09/08/23 09/08/23 09/08/23 Range/Units 06:07 09:00 09:00 WBC 3.4 L (3.8-10.6) k/uL RBC 2.50 L (3.80-5.40) m/uL Hgb 7.3 L (11.4-16.0) gm/dL Hct 23.8 L (34.0-46.0) % MCHC 30.6 L (31.0-37.0) g/dL RDW 18.6 H (11.5-15.5) % Lymphocytes # 0.6 L (1.0-4.8) k/uL Potassium 3.3 L (3.5-5.1) mmol/L Carbon Dioxide 34 H (22-30) mmol/L BUN 38 H (7-17) mg/dL Creatinine 1.54 H (0.52-1.04) mg/dL Glucose 105 H (74-99) mg/dL POC Glucose (mg/dL) 150 H (70-110) mg/dL Calcium 7.7 L (8.4-10.2) mg/dL Assessment and Plan Plan: Assessment: 1. Acute kidney injury on chronic kidney disease secondary to ATN secondary to cardiorenal syndrome and cardiac arrest. Creatinine 1.5 admission and peaked at 2.98 this admission - 1.61 today. Patient was on hemodialysis in the past with last treatment being July 02, 2023. 2. Volume overload. Improving with diuresis. 3. Acute on chronic diastolic CHF. 4. Diabetes mellitus. 5. Right foot wound. 6. Coronary disease with cardiac stenting. 7. Status post PEA arrest with concern for anoxic encephalopathy. 8. Septic shock with urine culture positive for E. coli and catheter tip culture positive for Corynebacterium. On antibiotics. Off vasopressors. 9. Metabolic acidosis secondary to acute kidney injury and IV fluids. On oral bicarb. Improved. 10. Anemia. Iron deficiency noted. Status post IV iron. On Aranesp. Also received blood transfusion this admission. 11. Hypernatremia from lack of oral water intake and free water diuresis. Better with D5W. Plan: Maintain IV Lasix. Encouraged oral intake, including free water as able to tolerate. Maintain D5W. Potassium replacement ordered. Avoid nephrotoxins. Continue to monitor renal function and urine output.
--- NOTE | 2023-09-08 12:46 | P.PN ---
Subjective Progress Note Date: 09/08/23 Principal diagnosis: Cardiopulmonary arrest x 2 This is a 57-year-old female who was admitted back on August 18, for a right heel wound. Early this morning, the patient had a cardiopulmonary arrest. The patient apparently was initially found to be bradycardic, and then had asystole. She received 3 rounds of epinephrine. She arrived to the intensive care unit this morning at 630, having been intubated on the floor by anesthesia. In the ICU, the patient had an episode of pulseless electrical activity, and asystole, and received 2 rounds of epinephrine, a dose of atropine, and some sodium bicarbonate. I came into the intensive care unit this morning, early, to place a left internal jugular triple-lumen catheter, and a right femoral arterial line. Currently, the patient is on volume assist-control, rate 16, tidal volume 400, FiO2 50%, PEEP of 5. The most recent blood gases show pO2 of 75, pCO2 49, pH is 7.44. Arterial blood gases shortly after intubation showed a pO2 of 268, pCO2 of 38, and a pH of 7.25. The patient is currently on norepinephrine at 1.4 mcg/min, and saline at 50 cc an hour. Current labs include a white count 13.8, hemoglobin 9.5, hematocrit 31, and a platelet count of 257,000. PT was 12.9 with an INR of 1.2. Sodium 135, potassium 4.9, chlorides 111, CO2 19, anion gap 5, BUN 62, creatinine 2.76. The patient's AST is 468. ALT is 286. Albumin is 2.1. Urine, is suspicious for possible infection. Brain CT Today, Shows No Acute Intracranial Process. Chest x-ray shows bilateral patchy airspace disease, right greater than left. 08/30/2023, the patient is being seen for a follow-up. Remains encephalopathic, speech at times is garbled. Follows commands. She is not consistently having a conversation. A repeat CAT scan of the brain was done on 08/28/2023 and the findings showed no acute abnormalities. EEG was also done on 08/29/2023 and it showed abnormal slowing and mild to moderate degree of encephalopathy with generalized cerebral dysfunction. The patient is clinically stable and hemodynamically stable. No respiratory distress. Adequate swallow without any risk of aspiration. Chest x-ray from today showing increased incisional markings bilaterally, could be a component of fluid overload. Meanwhile, the patient is on no pressors. She is afebrile. She is on oxygen at 3 L. Blood work from today shows a sodium level of 142, BUN of 56 with a creatinine of 2.98 and a creatinine remained stable with a potassium level of 5 and a serum bicarb of 18. Serum cortisol 15. TSH is at 2.5. No hypothermia. The patient remains on [facility], she remains on aspirin 81 mg p.o. daily combination with Plavix. She is on IV iron. She is covered empirically with IV Zosyn. She is on Seroquel 150 mg p.o. twice a day. Agitation is adequately controlled. 08/31/2023, the patient continues to have episodes of agitation. Overnight, the patient was quite restless and agitated. She had to be placed on Precedex. In itially at 0.8 mcg later on dropped down to 0.4 mcg and she is quite sedated at this point in time and the medication will be discontinued patient remains on 3 L of oxygen by nasal cannula. Moving all 4 extremities. Arousable and seems to be much comfortable this morning. Fluid balance is -1.9 L over the past 24 hours and the patient has responded to diuretics. Electrolytes are all stable with a BUN of 56 and a creatinine of 2.6 and a sodium is at 144, WBC count is at 7.3 with a hemoglobin 9.1. Remains on Seroquel 150 mg p.o. twice daily. Remains on IV Lasix 40 mg every 12 hours with a negative fluid balance. Remains on aspirin and Plavix. Rest of the medications are essentially unchanged for now. IV fluids are currently at KVO. 09/01/2023, the patient is much more comfortable. Awake and alert and communicating on low-dose Precedex at 0.2 mcg/kg/h. She is also on Seroquel. No significant agitation. Communicating moving all 4 extremities other than limitation. She is on 3 L of oxygen by nasal cannula. No respiratory distress. White cell count of 9.8 with a hemoglobin 8.6, BUN is 55 with a creatinine of 2.7. Fluid balance over the past 24 hours is -3 L. She is being diuresed with IV Lasix and she is currently on 40 mg IV every 12 hours. No focal neurological deficits. Will continue Reevaluate today on 09/02/2023, patient remains in the ICU, remains agitated, re stless, patient is receiving Seroquel, she is also on Zyprexa, her Seroquel dose is 150 twice daily, today I added Ativan 0.5 mg every 2 hours as needed. Patient was extubated on 08/24, she had intermittent episodes of supraventricular tachycardia, being addressed by cardiology patient is confused and encephalopathic. WBC count today is 7.4 hemoglobin 8.8 basic metabolic profile is normal BUN is 52 creatinine 2.55, steadily improving. Remains on IV Lasix, patient is nonoliguric, her mentation seems to be the major issue with significant encephalopathy and confusion Reevaluate today on 09/03/2023, patient remains in the ICU, still requiring Ativan intermittently and she is on Seroquel, patient is more calm and relaxed today, although she does have. Of agitation and restlessness. Continues to have a sitter at bedside. Patient is not requiring any Precedex, hence I plan to transfer the patient out to a cardiac floor with monitor. CBC is normal except for hemoglobin of 8.1 electrolytes are normal BUN is 54 creatinine 2.33, steadily improving compared to creatinine over the last few days Reevaluated today on 09/04/2023, patient is about the same, remains in the ICU as an overflow, patient has intermittent episodes of agitation and restlessness, remains on Seroquel, remains on Ativan as needed, patient is requiring intermittent medications for sedation, she is not requiring any more Precedex. Patient has a bedside sitter, and she needs almost constant attention. Labs including CBC and basic metabolic profile are normal BUN however is 67 creatinine 2.04 Reevaluated 09/05/2023, patient is about the same, continues to have intermittent episodes of agitation and restlessness, she is on D5W@50 mL/h she is also on Ativan 0 0.5 mg every 4 hours as needed intermittently receiving Lasix and she is on it now maintenance 40 mg IV push every 12 hours I cut it down to once a day. Continues to require sitter at bedside because of her intermittent episodes of agitations, today I added Risperdal 0.25 mg daily. WBC count is 6.5 hemoglobin 7.3 basic metabolic profile is normal BUN is 57 creatinine 1.89, improving Reevaluated on 09/06/2023, patient remains in the ICU, remains agitated intermittently, combative, when I evaluated the patient she was very calm and resting, sleeping, however apparently overnight the patient was extremely agitated and did not sleep much last night. Her Risperdal dose will be increased to 0.25 mg twice daily. The meantime patient is on many other medications to keep her calm and sedated. Patient has a sitter at bedside, does not seem to be in any distress labs today are unremarkable except hemoglobin of 7.6 basic metabolic profile is normal BUN is 52 creatinine 1.71 steadily improving over the last week Patient was reevaluated today on 09/07/2023, patient remains in the ICU, patient continues to have intermittent episodes of confusion, agitation, restlessness, does not seem to be in any respiratory distress, although her chest x-ray did show evidence of pulmonary edema and I recommended a dose of Lasix 40 mg IV push to be given now. Patient is on different types of medications to keep her calm, however does not seem to be helping, and now I am recommending a psychiatric consultation on this patient. WBC count is 6.0 hemoglobin 8.3 electrolytes are normal BUN is 40 creatinine 1.61, steadily improving. Patient is receiving S eroquel 150 twice daily she is also receiving Risperdal 0.25 twice daily, Ativan as needed but she is not requiring much Ativan. Patient is also on multiple cardiac meds. Patient was evaluated today on 09/08/2023, she is now out of the ICU, continues to have intermittent episodes of confusion and agitation, she has a sitter at bedside, today she seems to be [place]. Chest x-ray today showed evidence of worsening pulmonary edema although clinically the patient seems to be doing fine, hence I recommended increasing her Lasix up to 40 mg IV push twice daily. Patient is yet to be seen by psychiatry on consultation. WBC count is 3.4 hemoglobin 7.3 basic metabolic profile is normal BUN is 38 creatinine 1.54. Chest x-ray as noted earlier. Objective - Vital Signs Vital signs: Vital Signs Temp 97.5 F L 09/08/23 09:15 Pulse 80 09/08/23 09:15 Resp 18 09/08/23 09:15 BP 168/82 09/08/23 09:15 Pulse Ox 96 09/08/23 09:15 FiO2 3 09/02/23 04:00 Intake & Output 09/07/23 09/08/23 09/08/23 18:59 06:59 18:59 Intake Total 1250 120 Output Total 1475 600 750 Balance -225 -480 -750 Weight 60.5 kg Intake: IV 1000 Dextrose 5% in Water 1, 1000 000 ml @ 50 mls/hr IV . Q20H [facility] Rx#:[id number] Oral 250 120 Output: Urine 1475 600 750 Other: Voiding Method Indwelling Catheter Indwelling Catheter Indwelling Catheter ABP, PAP, CO, CI - Last Documented Arterial Blood Pressure 125/73 - Exam PHYSICAL EXAMINATION General: Reveals a 58-year-old female, in no distress, less agitated today seems to be [place] HEENT: Pupils are round and equally reacting to light. EOMI. CARDIOVASCULAR: S1 and S2 present. No murmurs, rubs, or gallops Pulmonary: Minimal crackles at the bases no rhonchi no wheezes ABDOMEN: Soft, nontender, nondistended, normoactive bowel sounds. No palpable organomegaly. MUSCULOSKELETAL: No joint swelling or deformity. EXTREMITIES: No cyanosis, clubbing, bilateral pedal edema NEUROLOGICAL: Less agitation noted, patient is [place] Psychiatric: Could not assess for SKIN: Patient has stage III decubitus ulcer - Labs CBC & Chem 7: 09/08/23 09:00 09/08/23 09:00 Labs: Abnormal Lab Results - Last 24 Hours (Table) 09/07/23 09/07/23 09/08/23 Range/Units 16:07 20:29 06:07 WBC (3.8-10.6) k/uL RBC (3.80-5.40) m/uL Hgb (11.4-16.0) gm/dL Hct (34.0-46.0) % MCHC (31.0-37.0) g/dL RDW (11.5-15.5) % Lymphocytes # (1.0-4.8) k/uL Potassium (3.5-5.1) mmol/L Carbon Dioxide (22-30) mmol/L BUN (7-17) mg/dL Creatinine (0.52-1.04) mg/dL Glucose (74-99) mg/dL POC Glucose (mg/dL) 69 L 140 H 150 H (70-110) mg/dL Calcium (8.4-10.2) mg/dL 09/08/23 09/08/23 09/08/23 Range/Units 09:00 09:00 11:23 WBC 3.4 L (3.8-10.6) k/uL RBC 2.50 L (3.80-5.40) m/uL Hgb 7.3 L (11.4-16.0) gm/dL Hct 23.8 L (34.0-46.0) % MCHC 30.6 L (31.0-37.0) g/dL RDW 18.6 H (11.5-15.5) % Lymphocytes # 0.6 L (1.0-4.8) k/uL Potassium 3.3 L (3.5-5.1) mmol/L Carbon Dioxide 34 H (22-30) mmol/L BUN 38 H (7-17) mg/dL Creatinine 1.54 H (0.52-1.04) mg/dL Glucose 105 H (74-99) mg/dL POC Glucose (mg/dL) 135 H (70-110) mg/dL Calcium 7.7 L (8.4-10.2) mg/dL Assessment and Plan Assessment: Impression: Cardiopulmonary arrest x 2 Acute hypoxic respiratory failure requiring intubation and mechanical ventilation extubated on 08/24, presently on room air. Acute hypoxic encephalopathy related to cardiac arrest History of diastolic congestive heart failure History of underlying coronary artery disease and successful stenting of prox imal RCA Status post non-ST elevation myocardial infarction Stage III chronic kidney disease Right heel pressure ulcer stage III Subacute fracture of medial and lateral malleolus patient is requiring a soft cast in the right lower extremity History of underlying COPD History of peripheral neuropathy Dyslipidemia Type 2 diabetes Recommendation: Psychiatric consultation Lasix 40 mg IV push x 1 now as her chest x-ray is showing evidence of worsening pulmonary edema Continue Seroquel at 150 twice daily Increase Risperdal to 0.25 twice daily Continue diuretics, increase Lasix to 40 mg twice daily Continue to monitor renal functioning, patient is being followed by nephrology Continue IV Zosyn for cellulitis. Continue subcu heparin for DVT prophylaxis Continue Imdur and Norvasc and Lipitor as well as Plavix and aspirin Continue sitter at bedside. Will continue to follow Time with Patient: Less than 30
[2023-09-08 16:12] LABS: Glucose,Whole Blood 116 mg/dL (70-110)
[2023-09-08 20:43] LABS: Glucose,Whole Blood 108 mg/dL (70-110)
[2023-09-08] MEDS: FUROSEMIDE 10 MG/ML 4 ML VIAL IV SCH (22:04)
--- NOTE | 2023-09-08 23:44 | PN ---
PROGRESS NOTE DATE OF SERVICE: 09/08/2023 SUBJECTIVE: This is a 58-year-old woman, who was admitted with CHF acute exacerbation, continues to be confused. The chest x-ray showed significant CHF. The patient also had cardiopulmonary arrest x2. The patient is as mentioned earlier completely confused. PAST MEDICAL HISTORY: Reviewed. REVIEW OF SYSTEMS: Could not be taken. CURRENT MEDICATIONS: Reviewed include Lasix, dose and rest of medications noted. PHYSICAL EXAMINATION: VITAL SIGNS: Pulse is 80, blood pressure 168/82, respirations 18. HEENT: Conjunctivae normal. NECK: No JVD. CARDIOVASCULAR: S1, S2. RESPIRATIONS: Breath sounds diminished at the bases. Bilateral scattered rhonchi and crackles. ABDOMEN: Soft. LEGS: No edema. NERVOUS SYSTEM: Nonfocal. LABORATORY DATA: Hemoglobin is 7.3, WBC 3.4. Potassium 3.3, creatinine is 1.54. ASSESSMENT: 1. Congestive heart failure acute exacerbation with acute hypoxic respiratory failure. 2. Cardiopulmonary arrest x2. 3. History of diastolic heart failure. 4. Anemia, multifactorial. 5. Status post non ST-segment elevation myocardial infarction. 6. Acute on chronic kidney disease. 7. Change in mental status, acute metabolic encephalopathy. 8. History of ischemic cardiomyopathy with history of improved ejection fraction. 9. Right heel stage III ulcer. 10.Multiple complex medical issues. 11.Full code. RECOMMENDATIONS: Recommend to continue current management, continue symptomatic treatment. I would recommend to continue the cautious diuresis. Otherwise, I would also recommend to limit total intake to 1200 mL per 24 hours and 1 unit transfusion, empiric antibiotics has been given. Repeat labs to be ordered. Guarded prognosis because of multiple complex medical issues. Further recommendations to follow. MMODL / IJN: [id number] /
[2023-09-09] MEDS: LORazepam 1 MG/0.5 ML VIAL IV STA (02:07)
[2023-09-09 06:04] LABS: Glucose,Whole Blood 102 mg/dL (70-110)
--- NOTE | 2023-09-09 08:28 | XR ---
EXAMINATION TYPE: XR chest 1V portable DATE OF EXAM: 09/09/2023 7:08 AM CLINICAL INDICATION:Female, 58 years old with history of chf; COMPARISON: Chest radiographs from 09/08/2023 TECHNIQUE: XR chest 1V portable Frontal view of the chest. FINDINGS: Lungs/Pleura: There is no evidence of pleural effusion, focal consolidation, or pneumothorax. Pulmonary vascularity: Pulmonary vascular congestion. Heart/mediastinum: Cardiomediastinal silhouette is enlarged and stable. Musculoskeletal: No acute osseous pathology. Other findings: None Lines/Tubes: Left internal jugular central venous catheter with distal tip at the cavoatrial junction. IMPRESSION: Cardiomegaly and mild pulmonary vascular congestion. Correlate with BNP for congestive heart failure.
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
[2023-09-09 10:27] LABS: Anisocytosis Slight; Basophils # (A) 0.1 k/uL (0-0.2); Basophils % (A) 1 %; Eosinophils # (A) 0.4 k/uL (0-0.7); Eosinophils % (A) 9 %; HCT 30.8 % (34.0-46.0); Hypochromasia Moderate; Lymphocytes # (A) 0.6 k/uL (1.0-4.8); Lymphocytes % (A) 13 %; MCHC 31.7 g/dL (31.0-37.0); MCV 94.5 fL (80.0-100.0); Macrocytosis Slight; Mean Platelet Volume 9.3; Monocytes # (A) 0.3 k/uL (0-1.0); Monocytes % (A) 7 %; Neutrophils # (A) 3.2 k/uL (1.3-7.7); Neutrophils % (A) 68 %; Platelet Count 227 k/uL (150-450); Poikilocytosis Slight; RBC 3.26 m/uL (3.80-5.40); RDW 18.5 % (11.5-15.5); WBC 4.7 k/uL (3.8-10.6)
[2023-09-09 10:30] LABS: African American GFR (CKD) 43 (>60 ml/min/1.73 sqM); Anion Gap 7 mmol/L; Blood Urea Nitrogen 32 mg/dL (7-17); Calcium 8.3 mg/dL (8.4-10.2); Carbon Dioxide 30 mmol/L (22-30); Chloride 106 mmol/L (98-107); Glucose 83 mg/dL (74-99); HGB 9.8 gm/dL (11.4-16.0); Non-African American GFR(CKD) 37 (>60 ml/min/1.73 sqM); Potassium 3.5 mmol/L (3.5-5.1); Sodium 143 mmol/L (137-145)
--- NOTE | 2023-09-09 11:10 | P.PN ---
Subjective Patient is seen for follow-up for acute kidney injury. She is confused. currently in soft restraints. Renal function has improved with creatinine staying at about 1.5 mg/dL. Objective - Vital Signs Vital signs: Vital Signs Temp 97.7 F 09/09/23 08:00 Pulse 92 09/09/23 08:00 Resp 18 09/09/23 08:00 BP 166/87 09/09/23 08:00 Pulse Ox 93 L 09/09/23 08:00 FiO2 3 09/02/23 04:00 Intake & Output 09/08/23 09/09/23 09/09/23 18:59 06:59 18:59 Intake Total 0 310 290 Output Total 1575 1700 675 Balance -1575 -1390 -385 Weight 64 kg Intake: Oral 290 Blood Product 0 310 Rc As-1 Unit 0 310 [id number] Output: Urine 1575 1700 675 Other: Voiding Method Indwelling Catheter Indwelling Catheter Indwelling Catheter ABP, PAP, CO, CI - Last Documented Arterial Blood Pressure 125/73 - Exam Patient is awake. She is comfortable. Confused Examination of the heart S1 and S2 Examination of the lungs bilateral breath sounds are heard Abdomen is soft nontender Examination of lower extremities shows trace edema - Labs CBC & Chem 7: 09/09/23 08:57 09/09/23 08:57 Labs: Abnormal Lab Results - Last 24 Hours (Table) 09/08/23 09/08/23 09/08/23 Range/Units 11:23 15:31 16:08 RBC (3.80-5.40) m/uL Hgb (11.4-16.0) gm/dL Hct (34.0-46.0) % RDW (11.5-15.5) % Lymphocytes # (1.0-4.8) k/uL BUN (7-17) mg/dL Creatinine (0.52-1.04) mg/dL POC Glucose (mg/dL) 135 H 116 H (70-110) mg/dL Calcium (8.4-10.2) mg/dL Crossmatch See Detail 09/09/23 09/09/23 Range/Units 08:57 08:57 RBC 3.26 L (3.80-5.40) m/uL Hgb 9.8 L D (11.4-16.0) gm/dL Hct 30.8 L (34.0-46.0) % RDW 18.5 H (11.5-15.5) % Lymphocytes # 0.6 L (1.0-4.8) k/uL BUN 32 H (7-17) mg/dL Creatinine 1.53 H (0.52-1.04) mg/dL POC Glucose (mg/dL) (70-110) mg/dL Calcium 8.3 L (8.4-10.2) mg/dL Crossmatch Assessment and Plan Assessment: 1. Acute kidney injury secondary to ATN secondary to cardiorenal syndrome and cardiac arrest. Creatinine stable at 1.5. Patient was on hemodialysis in the past with last treatment being July 02, 2023. Dialysis catheter it is now removed. Renal US no hydronephrosis. 2. Volume overload. Improved with diuresis. 3. Acute on chronic diastolic CHF. 4. Diabetes mellitus. 5. Right foot wound. 6. Coronary disease with cardiac stenting. 7. Status post PEA arrest with concern for anoxic encephalopathy. 8. Septic Shock-urine culture is growing E. coli. Catheter tip culture is growing corynebacterium, blood culture negative so far. 9. Metabolic acidosis, nongap, improved 10. Hypernatremia, maintained on D5W, improved Plan: continue with IV Lasix continue D5W Repeat labs in a.m.
[2023-09-09 11:31] LABS: Glucose,Whole Blood 143 mg/dL (70-110)
--- NOTE | 2023-09-09 11:50 | P.PN ---
Subjective Progress Note Date: 09/09/23 Principal diagnosis: Respiratory failure. Pulmonary consult dated August 23, 2023. This is a 57-year-old female who was admitted back on August 18, for a right heel wound. Early this morning, the patient had a cardiopulmonary arrest. The patient apparently was initially found to be bradycardic, and then had asystole. She received 3 rounds of epinephrine. She arrived to the intensive care unit this morning at 630, having been intubated on the floor by anesthesia. In the I CU, the patient had an episode of pulseless electrical activity, and asystole, and received 2 rounds of epinephrine, a dose of atropine, and some sodium bicarbonate. I came into the intensive care unit this morning, early, to place a left internal jugular triple-lumen catheter, and a right femoral arterial line. Currently, the patient is on volume assist-control, rate 16, tidal volume 400, FiO2 50%, PEEP of 5. The most recent blood gases show pO2 of 75, pCO2 49, pH is 7.44. Arterial blood gases shortly after intubation showed a pO2 of 268, pCO2 of 38, and a pH of 7.25. The patient is currently on norepinephrine at 1.4 mcg/min, and saline at 50 cc an hour. Current labs include a white count 13.8, hemoglobin 9.5, hematocrit 31, and a platelet count of 257,000. PT was 12.9 with an INR of 1.2. Sodium 135, potassium 4.9, chlorides 111, CO2 19, anion gap 5, BUN 62, creatinine 2.76. The patient's AST is 468. ALT is 286. Albumin is 2.1. Urine, is suspicious for possible infection. Brain CT Today, Shows No Acute Intracranial Process. Chest x-ray shows bilateral patchy airspace d isease, right greater than left. Progress note dated August 24, 2023. The patient is seen today in the intensive care unit, room 255. The patient remains on the mechanical ventilator. Current settings include volume assist- control, rate 16, tidal volume 400, FiO2 50%, PEEP of 5. The tidal volume will be dropped down to 350, and the FiO2 will be dropped down to 40%, current blood gases show pO2 132, pCO2 34, pH is 7.37. The patient continues on 0.9 at 50 cc an hour, propofol at 20 mcg/kg/min, and vital 1.2 at 10 cc an hour, with a goal of 48. The patient is discovered to have gram-negative bacilli in the urine. She continues on Zosyn. White count 9, hemoglobin 9.6, hematocrit 30.1, p latelet count 242,000. Sodium 138, potassium 4.7, chloride 113, CO2 18, BUN 63, and creatinine 2.65. Anion gap is 7. The patient's AST is 199, ALT is 235. Troponin is 0.565. Albumin is 2.0. The gram-negative bacilli in the urine was discovered to be Escherichia coli. Chest x-ray shows an endotracheal tube that is too low in the trachea, and should be pulled back. In addition, there is evidence of underlying vascular congestion, and/or infiltrates. Progress note dated August 25, 2023. 57-year-old female seen again in room 255. The patient remains on mechanical ventilator. She is on volume assist-control, rate 16, tidal volume 350, FiO2 40%, PEEP of 5. Blood gases show a pO2 of 95, pCO2 of 39, pH is 7.31. The patient is getting propofol 35 mcg/kg/min, saline at 50 cc an hour, and dopamine at 2.5 mcg/kg/min. The patient continues on Zosyn for Escherichia coli. The patient did develop some bradycardia, overnight, which required her to be on dopamine. We are going to order some Dopplers of the lower extremities. In addition, we will do a daily interruption of sedation, and a spontaneous breathing trial. Count is 10.5, hemoglobin 10.3, hematocrit 32.7, platelet count 314,000. Sodium 140, potassium 4.8, chlorides 113, CO2 18, BUN 57, creatinine 2.49. Glucose is 142. Magnesium is 2.1, calcium is 7.0. The patient's urine specimen from August 21, revealed Escherichia coli. Dopplers of the lower extremities were negative. Chest x-ray shows some patchy bilateral in filtrates, more left-sided than right-sided. On today's evaluation of 08/26/2023, the patient is being seen for a follow-up. The patient is post cardiopulmonary arrest that occurred on 08/23/2023 and the patient return of spontaneous circulation. Subsequently, the patient was extubated on 08/25/2023. The patient is currently on 4 L of oxygen by nasal cannula. The patient remains encephalopathic. At times, restless in bed and somewhat agitated. Based on that, made recommendations to start the patient on Precedex at the low-dose to control her restlessness and agitation. She is also noted to have a right ankle fracture and a chronic nonhealing heel ulcer, stage [place]. She was also found to have an E. coli in her urine possibly underlying urine tract infection on 08/22/2023. On today's evaluation, the patient is on 40s of oxygen by nasal cannula. Chest x-ray showing cardiomegaly and the patient has a left subclavian triple-lumen catheter in place. Hemodynamically stable on no pressors. WBC count of 8.6 with a hemoglobin 8.5 and a platelet count of 217. BUN is 51 with a creatinine of 2.28 and a sodium level is at 141 and a bicarb level is at 17. The patient is moving all 4 extremities without any limitation. The patient is currently afebrile. Nephrology is on the case regarding MARYLOU which is probably secondary to ATN and has creatinine is being monitored. Fluid balance over the past 24 hours has been 250 cc positive and the patient shows no signs of any significant fluid overload. The patient is currently on IV Zosyn regarding the possibility of an aspiration/E. coli urinary tract infection and is stage III right heel wound. She remains on bronchodilators. She is on no pressors for now. No other significant events overnight. As mentioned, she was extubated yesterday and the chest x-ray shows distal stable left-sided pleural effusion. The echocardiogram that was done on 08/20/2023 showed a preserved left ventricular ejection fraction, no significant valvular abnormalities. The patient also had Doppler of the lower extremity on 08/25/2023 that revealed no evidence of any DVT. There was a prominent lymph node in the right groin measuring 2.6 cm in size. The patient did have a catheter in her right IJ at the time of admission that was removed and the cultures came back positive for corynebacterium. On today's evaluation of 08/27/2023, the patient is being seen for a follow-up. Patient is postcardiac arrest and the patient is having some signs of anoxic encephalopathy. She was restless and confused and somewhat agitated. Based on that, the patient was started on Precedex yesterday and Precedex is running at 0.4 mcg/kg/h. No significant agitation at this point in time. She seems to be calm and comfortable. She follows occasional simple commands. No agitation. No focal neurological deficits. She is currently on 2 L of oxygen nasal cannula and she is also on lactated Ringer at rate of 50 cc an hour. Urine output is in order of 30 cc an hour. Overall fluid balance has been +700 cc over the past 24 hours. The blood work shows a WC count of 8.2 with a hemoglobin 8.6 and a platelet count of 200, BUN is at 48 with a creatinine of 2.22 and a sodium level of 141. The serum bicarb level is at 18. A repeat limited echocardiogram was done yesterday and the patient showed improvement and in the LV function and the patient ejection fraction is in order of 55 to 60% without any significant segmental wall motion abnormalities. The patient is afebrile. The patient is hemodynamically stable at this point in time. Nephrology on the case regarding her chronic renal failure. On today's evaluation of 08/28/2023, the patient continues to require Precedex for increased agitation and restlessness. While off sedation, thrashes around. Currently she is calm and comfortable being on Precedex at 0.7 mcg/kg/h. She is on 3 L of oxygen by nasal cannula. No signs of any respiratory distress. No focal neurological deficits. She continues to complain of chest wall soreness and pain related to CPR and based on that the patient was given IV Tylenol and she is also [place] for pain control. WBC count is 7.1 with a hemoglobin of 8.7 and a platelet count of 214. BUN is at 50 with a creatinine of 2.45 and a sodium level of 140 with a potassium level of 5.1. She is afebrile. She is hemodynamically stable at this point in time. Progress note dated August 29, 2023. The patient is seen today in room 255, intensive care unit. The patient was extubated from mechanical ventilation on August 24. She continues on oxygen by nasal cannula at 2 L. She is getting saline at 50 cc an hour. She does continue on Zosyn. She also continues on dexmedetomidine at 0.4 mcg/kg/h, for ongoing restlessness and agitation. Current labs include a white count of 6, hemoglobin 8.4, hematocrit 27.4, and a normal platelet count. Sodium 144, pot assium 4.9, chlorides 117, CO2 18, BUN 54, creatinine 2.86. The patient's glucose was 103. Calcium is 7.6. Urine from August 21 with positive for Escherichia coli. Catheter tip, from August 22 with positive for Corynebacterium species. Reevaluated today on 09/04/2023, patient is about the same, remains in the ICU as an overflow, patient has intermittent episodes of agitation and restlessness, remains on Seroquel, remains on Ativan as needed, patient is requiring intermittent medications for sedation, she is not requiring any more Precedex. Patient has a bedside sitter, and she needs almost constant attention. Labs including CBC and basic metabolic profile are normal BUN however is 67 crea tinine 2.04 Reevaluated 09/05/2023, patient is about the same, continues to have intermittent episodes of agitation and restlessness, she is on D5W@50 mL/h she is also on Ativan 0 0.5 mg every 4 hours as needed intermittently receiving Lasix and she is on it now maintenance 40 mg IV push every 12 hours I cut it down to once a day. Continues to require sitter at bedside because of her intermittent episodes of agitations, today I added Risperdal 0.25 mg daily. WBC count is 6.5 hemoglobin 7.3 basic metabolic profile is normal BUN is 57 creatinine 1.89, improving Reevaluated on 09/06/2023, patient remains in the ICU, remains agitated intermittently, combative, when I evaluated the patient she was very calm and resting, sleeping, however apparently overnight the patient was extremely agitated and did not sleep much last night. Her Risperdal dose will be increased to 0.25 mg twice daily. The meantime patient is on many other medications to keep her calm and sedated. Patient has a sitter at bedside, does not seem to be in any distress labs today are unremarkable except hemoglobin of 7.6 basic metabolic profile is normal BUN is 52 creatinine 1.71 steadily improving over the last week Patient was reevaluated today on 09/07/2023, patient remains in the ICU, patient continues to have intermittent episodes of confusion, agitation, restlessness, does not seem to be in any respiratory distress, although her chest x-ray did show evidence of pulmonary edema and I recommended a dose of Lasix 40 mg IV push to be given now. Patient is on different types of medications to keep her calm, however does not seem to be helping, and now I am recommending a psychiatric consultation on this patient. WBC count is 6.0 hemoglobin 8.3 electrolytes are normal BUN is 40 creatinine 1.61, steadily improving. Patient is receiving Seroquel 150 twice daily she is also receiving Risperdal 0.25 twice daily, Ativan as needed but she is not requiring much Ativan. Patient is also on multiple cardiac meds. Patient was evaluated today on 09/08/2023, she is now out of the ICU, continues to have intermittent episodes of confusion and agitation, she has a sitter at bedside, today she seems to be [place]. Chest x-ray today showed evidence of worsening pulmonary edema although clinically the patient seems to be doing fine, hence I recommended increasing her Lasix up to 40 mg IV push twice daily. Patient is yet to be seen by psychiatry on consultation. WBC count is 3.4 hemoglobin 7.3 basic metabolic profile is normal BUN is 38 creatinine 1.54. Chest x-ray as noted earlier. Progress note dated September 09, 2023. The patient is seen today in room 356. She is currently on 4 L of oxygen. She is receiving Zosyn. The patient has episodes of confusion and agitation, and has had a sitter at the bedside, for quite some time. Currently, speech pathology is in the room with the patient, evaluating her ability to properly take food by mouth. Laboratory data includes a white count 4.7, hemoglobin 9.8, hematocrit 30.8, and a platelet count of 227,000. Sodium 143, potassium 3.5, chlorides 106, CO2 30, BUN 32, creatinine 1.53. Glucose is 143. Calcium is 8.3. Previous culture data shows urine positive for E. coli, August 21, and a catheter tip with corynebacterium species, from August 22. Chest x-ray from today shows some cardiomegaly, and mild pulmonary vascular congestion. Objective - Vital Signs Vital signs: Vital Signs Temp 97.7 F 09/09/23 08:00 Pulse 92 09/09/23 08:00 Resp 18 09/09/23 08:00 BP 166/87 09/09/23 08:00 Pulse Ox 93 L 09/09/23 08:00 FiO2 3 09/02/23 04:00 Intake & Output 09/08/23 09/09/23 09/09/23 18:59 06:59 18:59 Intake Total 0 310 290 Output Total 1575 1700 675 Balance -1575 -1390 -385 Weight 64 kg Intake: Oral 290 Blood Product 0 310 Rc As-1 Unit 0 310 [id number] Output: Urine 1575 1700 675 Other: Voiding Method Indwelling Catheter Indwelling Catheter Indwelling Catheter ABP, PAP, CO, CI - Last Documented Arterial Blood Pressure 125/73 - Exam No acute distress, currently on nasal O2 at 4 L. HEENT examination is grossly unremarkable. Neck supple. Full range of motion. No adenopathy thyromegaly or neck vein distention. Cardiovascular examination reveals regular rhythm rate. S1-S2 normal. No S3 or S4. No discernible murmur noted. Heart sounds are distant. Heart rate 82 bpm. Lungs reveal scattered bilateral rhonchi. No wheezes or crackles. Breath sounds equal bilaterally. Saturation is 93 %. Abdomen soft with bowel sounds. Extremities are intact. No cyanosis clubbing or edema. Skin is without rash or lesion. Neurologic examination is difficult to assess. Patient with intermittent episodes of agitation and confusion. - Labs CBC & Chem 7: 09/09/23 08:57 09/09/23 08:57 Labs: Abnormal Lab Results - Last 24 Hours (Table) 09/08/23 09/08/23 09/09/23 Range/Units 15:31 16:08 08:57 RBC 3.26 L (3.80-5.40) m/uL Hgb 9.8 L D (11.4-16.0) gm/dL Hct 30.8 L (34.0-46.0) % RDW 18.5 H (11.5-15.5) % Lymphocytes # 0.6 L (1.0-4.8) k/uL BUN (7-17) mg/dL Creatinine (0.52-1.04) mg/dL POC Glucose (mg/dL) 116 H (70-110) mg/dL Calcium (8.4-10.2) mg/dL Crossmatch See Detail 09/09/23 09/09/23 Range/Units 08:57 11:30 RBC (3.80-5.40) m/uL Hgb (11.4-16.0) gm/dL Hct (34.0-46.0) % RDW (11.5-15.5) % Lymphocytes # (1.0-4.8) k/uL BUN 32 H (7-17) mg/dL Creatinine 1.53 H (0.52-1.04) mg/dL POC Glucose (mg/dL) 143 H (70-110) mg/dL Calcium 8.3 L (8.4-10.2) mg/dL Crossmatch Assessment and Plan Assessment: Cardiopulmonary arrest, x 2, with cardiopulmonary resuscitation, and return of spontaneous circulation on 08/23/23, echocardiogram shows a preserved LV function. No significant valvular abnormalities at this point in time. Cardiac rhythm is sinus. Acute hypoxic respiratory failure, postcardiac arrest, intubated and subsequently extubated on 08/25/2023 currently on 4 L of O2 nasal cannula. S/P intubation, and mechanical ventilation, secondary to cardiopulmonary arrest, August 23, 2023. She was extubated on 08/25/23. Encephalopathy with possibility of an underlying hypoxic encephalopathy postcardiac arrest, CAT scan of the brain that was done showed no evidence of any acute abnormalities. She seems to be calm and comfortable and there is no focal neurological deficit on today's evaluation. She is moving all 4 extremities without any limitation. History of congestive heart failure. Echocardiogram from this current admission shows a preserved LV function. Coronary artery disease cardiomyopathy and the patient is post non-ST segment elevation myocardial infarction. Cardiac catheterization was done on 06/24/2023 and the patient had successful stenting of the proximal RCA with reduction of the stenosis from 70% to 0%. Troponin peaked at 1. Stage III chronic kidney disease, creatinine is stable for now, the patient required hemodialysis during earlier hospitalization and the last hemodialysis was on 07/02/2023. The patient has not received hemodialysis since then. Dialysis catheter was removed and the catheter was positive for corynebacterium. Right heel pressure ulcer, stage III. Subacute fracture of the medial and lateral malleolus. History of hypertension. History of hyperlipidemia. History of type 2 diabetes mellitus. History of severe pulmonary hypertension. History of COPD. History of peripheral neuropathy. Chest wall pain related to CPR. Plan: Plan dated August 23, 2023. The patient is seen in the intensive care unit, room 255. I came in early this morning to place an arterial line, and the internal jugular triple-lumen catheter. The patient had poor IV access. The patient is currently on norep inephrine at 1.4 mcg/min. He is getting saline at [address] A [address] scan of the brain, was negative. The patient blood gases show pO2 of 75, pCO2 of 49, pH of 7.44. We will continue to follow make recommendations along the way. The patient's overall prognosis remains very guarded. The patient continues on ceftriaxone, and fluconazole. Prognosis is guarded. Plan dated August 24, 2023. The patient is seen today in room 255. She remains on mechanical ventilator. The urine is showing evidence of Escherichia coli. The patient continues on Zosyn. The patient's EEG shows slowing, consistent with severe encephalopathy. There was no evidence of any seizure activity. Labs, x-rays, and all medications are reviewed. We will continue to follow the patient, make recommendations along the way. The patient's overall prognosis remains very guarded. Today we make some ventilator changes, including dropping the tidal volume down from 400, down to 350, and the FiO2, being reduced to 40%, for 50%. Plan dated August 25, 2023. The patient is seen today in room 255. She remains on the mechanical ventilator. Today, we will do a daily interruption of sedation, and a spontaneous breathing trial. Dopplers of the lower extremities were negative. She remains on Zosyn for Escherichia coli urinary tract infection. Overnight she developed bradycardia. For that she was started on dopamine by cardiology. The patient is getting saline at 50 cc an hour, propofol at 35 mcg/kg/min. Bloo d gases are reasonable. Will place the patient on PSV 5, CPAP 5, get some weaning parameters, and see if we can extubate the patient. We will continue to follow. Labs, x-rays, and medications are reviewed. Prognosis is guarded. Plan dated August 29, 2023. The patient will continue with dexmedetomidine, and hopefully, it will be gradually weaned off. The patient was started on Seroquel, 100 mg twice a day. The patient is currently hemodynamically stable, with no need for vasopressors. Cardiac rhythm is also stable. A repeat echocardiogram has been ordered. The patient is on [place] for pain control. Also, the patient continues on Zosyn. Other medications include Lipitor, Norvasc, and Imdur, as well as subcutaneous heparin for DVT prophylaxis. We will continue to monitor, in the intensive care unit. Prognosis is certainly very guarded. Neurologic status is of a concern. Appreciate input by neurology. Plan dated September 09, 2023. The patient is seen today in room 356. The patient continues on Zosyn. The patient is on 4 L of oxygen. There is a sitter at the bedside. She continues on appropriate medications including Risperdal and Seroquel. In addition, the patient continues on GI prophylaxis, and DVT prophylaxis. Though Zosyn is primarily for the cellulitis. We will continue to follow make recommendations along the way. Prognosis is guarded. She does have intermittent episodes of confusion agitation, and yelling out. Time with Patient: Less than 30
--- NOTE | 2023-09-09 13:20 | CT ---
EXAMINATION TYPE: CT brain wo con DATE OF EXAM: 09/09/2023 COMPARISON: 08/28/2023 HISTORY: ams CT DLP: 1197.[address] of the brain was performed. The ventricles, basal cisterns and sulci overlying the cerebral convexities demonstrate mild enlargem ent. There is no evidence for intracranial hemorrhage or sulcal effacement. There is decreased attenuation about the periventricular white matter and deep white matter of both c erebral hemispheres, compatible with chronic small vessel ischemia. Differential diagnosis does inclu de demyelination. No mass effects are seen.No midline shift. Osseous calvarium is intact. If symptoms persist consider MRI. IMPRESSION: 1. Age related atrophic and chronic small vessel ischemic change without acute intracranial process s een at this time.
--- NOTE | 2023-09-09 14:07 | P.PN ---
Subjective Progress Note Date: 09/09/23 57-year-old female came in with complaints of shortness of breath and orthopnea found to be in congestive heart failure exacerbation patient has congestive heart failure with reduced ejection fraction in the past patient has increasing pedal edema. Patient also has an ulcer in the right foot stage III-IV which appeared to be infected we will consult wound care and infectious disease. Patient was on hemodialysis during last hospitalization her creatinine presently is 1.5 which is significantly improved patient potassium is 5.5, patient is on Entresto and Aldactone Aldactone will be held Entresto will be continued since she is receiving IV Lasix and expecting her potassium to improve if it does not improve or get worse then Entresto need to be discontinued as well. Patient has hypervolemic hyponatremia and hyperglycemia. 08/21/2023 Was evaluated today on the medical floor. Patient was continued on IV Lasix overnight however she was no longer reporting any shortness of breath and her lower extremity edema has improved. She was taken off of the Lasix at this time due to increased creatinine up to 2.31 additionally potassium remains elevated at 5.7. Echocardiogram comes back showing an improved ejection fraction of 60 to 65% because of this and also the hyperkalemia patient will not be continued on entresto. Patient was evaluated by infectious disease who felt like that heel ulcer on the right side was more likely a pressure injury stage III and is recommending local wound care to continue with Aquacel. Patient is reporting significant pain to the right foot and feels like it is fractured. Upon review of the patient's chart she did have a x-ray completed of this 12 days ago ordered by her hematology oncology consultant Dr. Mayen. Ankle x-ray did review a mildly displaced acute distal fibular fracture. Repeat x-ray of the foot and ankle completed today does reveal a subacute fractures of the medial and lateral malleolus. The lateral malleolus fracture was seen on the patient's prior exam the medial malleolus fracture may be new in the interval and this would be considered an unstable ankle fracture. There is interval 6 mm displacement of the lateral malleolus. There is a deep soft tissue ulcer at the plantar heel with no clear radiographic findings of a contagious osteomyelitis at this time. Orthooedics was consulted for this. 08/22/2023 Patient evaluated in follow-up today resting in bed. She was taken off of the Lasix remains off at this time. Bladder scan was requested and not done yesterday to rule out urinary retention, creatinine today is increased up to 2.56. Bladder scan was done require urinary straight catheterization of 550 mL taken out. Urinalysis was sent which is significantly abnormal. Patient is also noted to have multiple genital lesions which appear wartlike she admits to not having any routine gynecological screenings for many years. She is not having any vaginal bleeding or discharge. Renal ultrasound has been ordered to rule out any obstructive uropathy. 08/23/2023 Patient is evaluated today in follow-up patient had a cardiac event with cardiac arrest manager electrical around 445 AM with initial rhythm slowing asystole patient was started on CPR with ACS protocol patient did receive ROSC after 6 to 8 minutes and was transferred to the intensive care unit. Patient upon arrival to the intensive care unit had another episode of cardiac arrest patient had bradycardia while on pressors in the ICU patient was intubated following the first cardiac arrest and is currently on the mechanical ventilator 50% FiO2. Chest x-ray showing similar interstitial and patchy component airspace disease right greater than left. There is a possible trace left pleural effusion. A brain CT which shows no acute intracranial process. Blood work today shows a white blood cell count of 13.8, hemoglobin 9.5, sodium level of 135, BUN of 62, creatinine of 2.76. AST ALT and alk phosphatase are significantly elevated consistent with a shock liver. TSH 3.310. Urinalysis is abnormal. Her urine culture is showing gram-negative bacilli patient is covered for the urinary tract infection as well as aspiration with IV Zosyn being managed by infectious disease. Patient is currently sedated with propofol and did require vasopressor support with Levophed which has been weaned at this time. Will discontinue the gabapentin patient is continued on aspirin Plavix and statin has been placed on hold. There is concern for possible arrhythmia precipitating the asystole additionally we need to rule out embolism and a D-dimer has been ordered. 08/24/2023 Patient is seen in follow-up today continues in the ICU on mechanical ventilation. FiO2 is 50% although titrating and was just placed at 40% with a PEEP of 5. Chest x-ray today shows that the ET tube is 7 mm from the sonam suggesting a pulled back 2 cm and reassess and also suspected underlying vascular congestion. Neuro is following and per nursing staff patient is following some simple commands and undergoing sedation holidays. Patient noted to have reduced EF of 30 to 35% and cardiology had been following. Will reconsult and appreciate input and recommendations. patient did have dialysis catheter removed and sent for cultures which are pending. Infectious disease following and patient is maintained on antibiotic. D-dimer is elevated above 16 and will attempt to obtain a VQ scan.57-year-old female came in with complaints of shortness of breath and orthopnea found to be in congestive heart failure exacerbation patient has congestive heart failure with reduced ejection fraction in the past patient has increasing pedal edema. Patient also has an ulcer in the right foot stage III-IV which appeared to be infected we will consult wound care and infectious disease. Patient was on hemodialysis during last hospitalization her creatinine presently is 1.5 which is significantly improved patient potassium is 5.5, patient is on Entresto and Aldactone Aldactone will be held Entresto will be continued since she is receiving IV Lasix and expecting her potassium to improve if it does not improve or get worse then Entresto need to be discontinued as well. Patient has hypervolemic hyponatremia and hyperglycemia. 08/21/2023 Was evaluated today on the medical floor. Patient was continued on IV Lasix overnight however she was no longer reporting any shortness of breath and her lower extremity edema has improved. She was taken off of the Lasix at this time due to increased creatinine up to 2.31 additionally potassium remains elevated at 5.7. Echocardiogram comes back showing an improved ejection fraction of 60 to 65% because of this and also the hyperkalemia patient will not be continued on entresto. Patient was evaluated by infectious disease who felt like that heel ulcer on the right side was more likely a pressure injury stage III and is recommending local wound care to continue with Aquacel. Patient is reporting significant pain to the right foot and feels like it is fractured. Upon review of the patient's chart she did have a x-ray completed of this 12 days ago ordered by her hematology oncology consultant Dr. Mayen. Ankle x-ray did review a mildly displaced acute distal fibular fracture. Repeat x-ray of the foot and ankle completed today does reveal a subacute fractures of the medial and lateral malleolus. The lateral malleolus fracture was seen on the patient's prior exam the medial malleolus fracture may be new in the interval and this would be considered an unstable ankle fracture. There is interval 6 mm displacement of the lateral malleolus. There is a deep soft tissue ulcer at the plantar heel with no clear radiographic findings of a contagious osteomyelitis at this time. Orthooedics was consulted for this. 08/22/2023 Patient evaluated in follow-up today resting in bed. She was taken off of the Lasix remains off at this time. Bladder scan was requested and not done yesterday to rule out urinary retention, creatinine today is increased up to 2.56. Bladder scan was done require urinary straight catheterization of 550 mL taken out. Urinalysis was sent which is significantly abnormal. Patient is also noted to have multiple genital lesions which appear wartlike she admits to not having any routine gynecological screenings for many years. She is not having any vaginal bleeding or discharge. Renal ultrasound has been ordered to rule out any obstructive uropathy. 08/23/2023 Patient is evaluated today in follow-up patient had a cardiac event with cardiac arrest manager electrical around 445 AM with initial rhythm slowing asystole patient was started on CPR with ACS protocol patient did receive ROSC after 6 to 8 minutes and was transferred to the intensive care unit. Patient upon arrival to the intensive care unit had another episode of cardiac arrest patient had bradycardia while on pressors in the ICU patient was intubated following the first cardiac arrest and is currently on the mechanical ventilator 50% FiO2. Chest x-ray showing similar interstitial and patchy component airspace disease right greater than left. There is a possible trace left pleural effusion. A brain CT which shows no acute intracranial process. Blood work today shows a white blood cell count of 13.8, hemoglobin 9.5, sodium level of 135, BUN of 62, creatinine of 2.76. AST ALT and alk phosphatase are significantly elevated consistent with a shock liver. TSH 3.310. Urinalysis is abnormal. Her urine culture is showing gram-negative bacilli patient is covered for the urinary tract infection as well as aspiration with IV Zosyn being managed by infectious disease. Patient is currently sedated with propofol and did require vasopressor support with Levophed which has been weaned at this time. Will discontinue the gabapentin patient is continued on aspirin Plavix and statin has been placed on hold. There is concern for possible arrhythmia precipitating the asystole additionally we need to rule out embolism and a D-dimer has been ordered. 08/24/2023 Patient is seen in follow-up today continues in the ICU on mechanical ventil ation. FiO2 is 50% although titrating and was just placed at 40% with a PEEP of 5. Chest x-ray today shows that the ET tube is 7 mm from the sonam suggesting a pulled back 2 cm and reassess and also suspected underlying vascular congestion. Neuro is following and per nursing staff patient is following some simple commands and undergoing sedation holidays. Patient noted to have reduced EF of 30 to 35% and cardiology had been following. Will reconsult and appreciate input and recommendations. patient did have dialysis catheter removed and sent for cultures which are pending. Infectious disease following and patient is maintained on antibiotic. D-dimer is elevated above 16 and will atte mpt to obtain a VQ scan. 08/25/23 : Patient seen and evaluated at bedside, patient extubated around noon, transition to 5 L of oxygen to nasal cannula. Family at bedside, blood work reviewed hemoglobin 10.3, serum chemistry reviewed sodium 140 potassium 4.8 BUN 57 creatinine 2.49 calcium of 7. 08/26/23 : Patient seen and evaluated at bedside, patient remains in medical ICU, does complain of chest pain from CPR. Patient has been weaned off dopamine, cardiology following, blood work reviewed, hemoglobin 8.5 platelet count of 217, serum chemistry shows sodium 141 BUN 51 creatinine 2.28. Followed up by nephrology as well MARYLOU secondary to ATN continue to monitor intake and output 08/27/23: Patient seen and evaluated bedside, on evaluation patient is disoriented, patient is drowsy however likely having acute delirium. Seen by cardiology echocardiogram shows preserved ejection fraction continue with current medical management, patient on Precedex for acute delirium, continue to remain on oxygen supplementation with nasal cannula blood work reviewed CBC showed WBC 8.2 hemoglobin 8.6 serum chemistry showed creatinine of 2.22. Patient remains delirious, daughter at bedside all questions answered 08/28/2023 Patient was agitated earlier requiring Seroquel and Placed on Precedex because she was has risk to self and others Currently when I saw the patient she was sleepy However she is not tachypneic show does not look in pain. Vitals are stable She is saturating 91% on 2 L oxygen via nasal cannula She remains on Zosyn for pneumonia and UTI She is on normal saline at 50 mL/h 08/29/2023 Patient remains sleepy, she still has some encephalopathy But she is on Precedex which will be tapered off by pulmonary team today to assess her mentation as well. Patient has been followed by neurology for suspected anoxic brain injury after her cardiac arrest and return of circulation on 08/22. There is no evidence of seizure-like activity She has catheter tip infection with culture growing Corynebacterium species and she is currently covered with Zosyn which also help for her right heel pressure ulcer and aspiration pneumonia and UTI. Cardiology evaluated the patient and there is no clear evidence for her cardiac arrest although she has history of coronary artery disease and previous stents. Currently with no chest pain. She remains on aspirin and Plavix, gentle hydration, IV steroids 08/30/2023 Today her sedation remains off however patient mentation not completely resolved, it is somewhat better as she was more sleepy yesterday She is eating okay, swallowing is fine She was started on IV Lasix twice daily per pig machine operator. She has good urine output and normal send discontinued She is hemodynamically stable and oxygenation is acceptable Remains on aspirin and Plavix and Seroquel 08/31/23: Seen and evaluated at bedside, patient remains on 4 L of oxygen, blood work reviewed, WBC 7.3 hemoglobin 9.1 platelet count of 203 glucose 119. CBC reviewed showed WBC 7.3 hemoglobin 9.1 platelet count of 203.. Neurology consulted and following. Patient is awake and alert able to answer questions and follow commands sister at bedside all questions answered 09/01/23: Seen and evaluated at bedside, patient vitals reviewed, serum chemistry reviewed sodium 145 potassium 4.6 creatinine 2.71, CBC reviewed patient remains on IV Zosyn , appreciate input from nephrology continue patient on IV Lasix, delirium persist 09/02/23: Patient seen and evaluated bedside, patient been admitted for cardiopulmonary arrest, respiratory failure s/p extubation on nasal cannula however continues to remain delirious. Blood work reviewed hemoglobin 8.8, platelet count 226, serum chemistry reviewed creatinine 2.55 potassium 4.5. MRI brain has been ordered which is pending, patient remains disoriented 09/03/2023 Patient is seen in follow-up status post recent extubation maintained on a few liters of pulmonary flap lining binder following closely. Cardiology following as well and adjusted medications recommending continuing with current medication regimen. No change in mentation as patient continues with periods of confusion and restlessness. Medications being adjusted and Ativan as needed has been added. Continue Seroquel. Patient will answer questions appropriately and discuss her health history and can recall her doctors names but will ramble on regarding something irrelevant during conversation. Patient is redirectable. Patient continues with partial cast noted on the lower extremity. Patient continues on IV Lasix and kidney functions are improving nephrology following closely. Plan is for patient to possibly move out of the ICU. Will have PT/OT therapy evaluate the patient and discuss further with consultations along with case management regarding possible ECF versus discharge planning. 09/04/2023 Patient seen in follow-up today and continues to have periods of confusion and restlessness. Patient continues in the ICU with multiple medical consultations following. Hemoglobin was found to be less than 7 today and will transfuse 1 unit of PRBC. Sodium 147 and recommend repeat labs as well. Nephrology is following and patient is continued on IV Lasix. MRI of the brain remains pending and neurology is following. 09/05/2023 Patient is seen and evaluated today continues to be in the ICU needs continuous reinforcement on keeping oxygen on. Patient does have a product safety technician at the bedside. Patient is currently resting although remains confused and anxious and agitated at times. Hemoglobin is stable above 7 status post 1 unit of PRBC. Patient continues on IV Lasix daily and nephrology following closely. Patient to continue on IV antibiotics with infectious disease following. 09/06/2023 Patient seen in follow-up today continues to be sleepy at this time although when awake patient is extremely restless and agitated requiring sitter at the bedside. Adjustments to medications being made and Risperdal is being increased and will continue with Seroquel. Ativan as needed. Patient's hemoglobin is stable with no active bleeding noted. Neurology following as patient continues to be unable to obtain an MRI and will have a repeat EEG as well as CT brain per neurology. Patient is afebrile and is continued on antibiotics with infectious disease following. 09/09/2023 Patient seen in follow-up today has been transitioned out of the ICU and curren tly on selective unit and continues with product safety technician at the bedside. Patient is keeping her oxygen on currently and is on 4 L. Multiple medical consultations following and per nursing staff patient was able to get up and work with physical therapy today. Plan is for ECF when patient's mentation is improved. Patient continues on IV Lasix twice daily as well with nephrology following. Continue Ativan as needed and patient is also maintained on Risperdal twice daily. Patient is afebrile with no reports of chest pain or shortness of breath. Hemoglobin is stable at 9.8 and white count is normal and kidney functions are improving. Continue monitoring Accu-Cheks before meals and at bedtime and will continue with sliding scale. Neurology following and patient is scheduled to undergo repeat brain CT today. Chest x-ray continues to show pulmonary vascular congestion. Review of systems: Unable to completely assess as patient is sleeping. Patient is waking up a little more and answering more questions appropriately. All medications have been reviewed Active Medications Acetaminophen (Acetaminophen Tab 325 Mg Tab) 650 mg PO Q6HR PRN PRN Reason: Fever and/ or Pain Last Admin: 09/07/23 20:41 Dose: 650 mg Albuterol/Ipratropium (Ipratropium-Albuterol 3 Ml Neb) 3 ml INHALATION RT-QID PRN PRN Reason: Dyspnea Amlodipine Besylate (Amlodipine 5 Mg Tab) 5 mg PO DAILY [facility] Last Admin: 09/09/23 09:14 Dose: 5 mg Aspirin (Aspirin 81 Mg) 81 mg PO DAILY [facility] Last Admin: 09/09/23 09:13 Dose: 81 mg Atorvastatin Calcium (Atorvastatin 40 Mg Tab) 40 mg PO DAILY [facility] Last Admin: 09/09/23 09:14 Dose: 40 mg Clopidogrel Bisulfate (Clopidogrel 75 Mg Tab) 75 mg PO DAILY [facility] Last Admin: 09/09/23 09:14 Dose: 75 mg Darbepoetin Frantz (Darbepoetin Frantz 40 Mcg/0.4 Ml Syringe) 40 mcg SQ Q7D [facility] Last Admin: 09/06/23 11:45 Dose: 40 mcg Dextrose/Water (Dextrose 50% Syringe 50 Ml) 25 ml IVP PER PROTOCOL PRN; Protocol PRN Reason: Hypoglycemia Last Admin: 08/23/23 21:17 Dose: 25 ml Dextrose/Water (Dextrose 50% Syringe 50 Ml) 50 ml IVP PER PROTOCOL PRN; Protocol PRN Reason: Hypoglycemia Docusate Sodium (Docusate 100 Mg Cap) 100 mg PO BID [facility] Last Admin: 09/09/23 09:13 Dose: 100 mg Folic Acid (Folic Acid 1 Mg Tab) 1 mg PO DAILY [facility] Last Admin: 09/09/23 09:14 Dose: 1 mg Furosemide (Furosemide 10 Mg/Ml 4 Ml Vial) 40 mg IV Q12HR [facility] Last Admin: 09/09/23 09:09 Dose: 40 mg Heparin Sodium (Porcine) (Heparin Sodium,Porcine 5,000 Unit/Ml 1 Ml Vial) 5,000 unit SQ Q12HR RYLIE Last Admin: 09/09/23 09:09 Dose: 5,000 unit Hydromorphone HCl (Hydromorphone 0.5 Mg/0.5 Ml Syringe) 0.5 mg IVP Q4HR PRN PRN Reason: Severe Pain (Scale 7 to 10) Piperacillin Sod/Tazobactam (Sod 3.375 gm/ Sodium Chloride) 100 mls @ 25 mls/hr IVPB Q12HR [facility]; Protocol Last Admin: 09/09/23 09:08 Dose: 25 mls/hr Dextrose/Water (Dextrose 5%-Water Iv Soln) 1,000 mls @ 50 mls/hr IV .Q20H [facility] Last Admin: 09/09/23 11:26 Dose: Not Given Insulin Aspart (Insulin Aspart (Novolog) 100 Unit/Ml Vial) 0 unit SQ ACHS [facility]YLIE; Protocol Last Admin: 09/09/23 11:31 Dose: Not Given Isosorbide Mononitrate (Isosorbide Mononitrate Er 30 Mg Tab.Er.24h) 30 mg PO DAILY [facility] Last Admin: 09/09/23 09:14 Dose: 30 mg Lidocaine (Lidocaine 4% Patch) 1 patch TOPICAL DAILY [facility]; Protocol Last Admin: 09/09/23 09:14 Dose: 1 patch Lorazepam (Lorazepam 1 Mg/0.5 Ml Vial) 0.5 mg IV Q2HR PRN PRN Reason: Anxiety Last Admin: 09/09/23 06:14 Dose: 0.5 mg Metoprolol Tartrate (Metoprolol Tartrate 12.5 Mg Tab) 12.5 mg PO BID [facility] Last Admin: 09/09/23 09:14 Dose: 12.5 mg Multivitamins (Multivitamins, Thera 1 Each Tab) 1 each PO DAILY [facility] Last Admin: 09/09/23 09:14 Dose: 1 each Pantoprazole Sodium (Pantoprazole 40 Mg/10 Ml Vial) 40 mg IVP DAILY [facility] Last Admin: 09/09/23 09:09 Dose: 40 mg Quetiapine Fumarate (Quetiapine 50 Mg Tab) 150 mg PO BID [facility] Last Admin: 09/09/23 09:14 Dose: 150 mg Risperidone (Risperidone 0.25 Mg Tab) 0.25 mg PO BID [facility] Last Admin: 09/09/23 09:14 Dose: 0.25 mg Ropinirole HCl (Ropinirole Hcl 1 Mg Tab) 1 mg PO HS PRN PRN Reason: restless legs Ropinirole HCl (Ropinirole Hcl 1 Mg Tab) 1 mg PO HS [facility] Last Admin: 09/08/23 22:04 Dose: 1 mg Thiamine HCl (Thiamine 100 Mg Tab) 100 mg PO DAILY [facility] Last Admin: 09/09/23 09:14 Dose: 100 mg PHYSICAL EXAMINATION: GENERAL: The patient is on nasal cannula, lethargic although arousable, alert and oriented x 1 but more alert when awake today, elderly appearing, unkept, ill-appearing HEENT: Pupils are round and equally reacting to light. EOMI. CARDIOVASCULAR: S1 and S2 muffled PULMONARY: Decreased breath sounds bilaterally with some scattered rhonchi noted ABDOMEN: Soft, nontender, nondistended, normoactive bowel sounds. No palpable organomegaly. MUSCULOSKELETAL: No joint swelling or deformity. EXTREMITIES: Right lower extremity bandage with partial cast noted NEUROLOGICAL: pupils reactive unable to assess completely as patient is lethargi c and falls asleep easily SKIN: Patient has right plantar surface ulcer on the posterior foot stage III-IV with areas of necrotic tissue. Casting and Tam wrap noted of the right lower extremity Assessment: * Asystole/cardiopulmonary arrest x 2 with CPR/ROSC * Respiratory failure requiring intubation s/p extubation 08/25/2023 * Acute metabolic encephalopathy * Congestive heart failure with systolic dysfunction acute on chronic exacerbation * Acute hypoxic respiratory failure secondary to CHF * Ischemic cardiomyopathy with improved EF * Acute kidney injury secondary to ATN on chronic kidney disease stage III * Urinary tract infection with E. coli * Subacute fracture of the medial and lateral malleolus, orthopedics following * Right heel stage III pressure injury continue local wound care with aquacel ID following. * Genital lesions, will need data assistant follow up outpatient for routine screenings * Hypertension * Hyperlipidemia * Type 2 diabetes mellitus uncontrolled hgb a1c 12.1 * Severe pulmonary hypertension * COPD without any acute exacerbation * Peripheral neuropathy * Obesity with a body mass index of 30.8 * GI prophylaxis * DVT prophylaxis * Full code Plan: Patient being followed by multiple medical consultation and has been moved from the ICU to the stepdown unit and continues with product safety technician. 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 Transfuse if [address] of the brain is ordered and pending with neurology following today. Will follow-up with repeat labs and continue to monitor closely. Due to multiple complex medical issues, prognosis is guarded The impression and plan of care has been dictated by Muona Rowley, Nurse Practitioner as directed. Dr. Wyatt MD I have performed a history and examination and MDM of this patient, discussed the same with the dictator, and agree with the dictator's assessment and plan a s written ,documented as a scribe. Based on total visit time, I have performed more than 50% of the visit. Objective - Vital Signs Vital signs: Vital Signs Temp 97.7 F 09/09/23 08:00 Pulse 73 09/09/23 11:58 Resp 16 09/09/23 11:58 BP 129/63 09/09/23 11:58 Pulse Ox 94 L 09/09/23 11:58 FiO2 3 09/02/23 04:00 Intake & Output 09/08/23 09/09/23 09/09/23 18:59 06:59 18:59 Intake Total 0 310 290 Output Total 1575 1700 975 Balance -1575 -1390 -685 Weight 64 kg Intake: Oral 290 Blood Product 0 310 Rc As-1 Unit 0 310 [id number] Output: Urine 1575 1700 975 Other: Voiding Method Indwelling Catheter Indwelling Catheter Indwelling Catheter ABP, PAP, CO, CI - Last Documented Arterial Blood Pressure 125/73 - Labs CBC & Chem 7: 09/09/23 08:57 09/09/23 08:57 Labs: Abnormal Lab Results - Last 24 Hours (Table) 09/08/23 09/08/2324 Range/Units 15:31 16:08 08:57 RBC 3.26 L (3.80-5.40) m/uL Hgb 9.8 L D (11.4-16.0) gm/dL Hct 30.8 L (34.0-46.0) % RDW 18.5 H (11.5-15.5) % Lymphocytes # 0.6 L (1.0-4.8) k/uL BUN (7-17) mg/dL Creatinine (0.52-1.04) mg/dL POC Glucose (mg/dL) 116 H (70-110) mg/dL Calcium (8.4-10.2) mg/dL Crossmatch See Detail 09/09/23 09/09/23 Range/Units 08:57 11:30 RBC (3.80-5.40) m/uL Hgb (11.4-16.0) gm/dL Hct (34.0-46.0) % RDW (11.5-15.5) % Lymphocytes # (1.0-4.8) k/uL BUN 32 H (7-17) mg/dL Creatinine 1.53 H (0.52-1.04) mg/dL POC Glucose (mg/dL) 143 H (70-110) mg/dL Calcium 8.3 L (8.4-10.2) mg/dL Crossmatch
--- NOTE | 2023-09-09 14:45 | P.CN ---
Psychiatric Consult - . Consult date: 09/09/23 Consult:: 09/09/23 13:09 IDENTIFYING DATA: This patient is a 58y/o female. Unable to gather any more information, due to patient being sedated. REASON FOR REFERRAL: Psychiatry was consulted for "AMS and agitation" HISTORY OF PRESENT ILLNESS: The patient presented to the hospital 08/18, complaining of shortness of breath, and leg swelling. Patient is laying in bed, with her eyes closed. She is not easily aroused. She stated her name , and she knows she is in the hospital, but thinks she is in [facility]. She also stated that it is 1925. As per nursing staff, she was combative last night, and required soft restraints. She was also pulling at her catheter, and removing the oxygen from her face. The patient was laying in bed, with her eyes closed, and would not wake up to have a conversation with curriculum writer. She would answer minimal questions with short, one word answers. PAST PSYCHIATRIC HISTORY: unable to assess, due to sedation. Please refer to medical H&P PAST MEDICAL HISTORY: as per EMR ALLERGIES: as per EMR. CHEMICAL DEPENDENCY HISTORY: Please refer to medical H&P FAMILY PSYCHIATRIC/SUBSTANCE USE HISTORY: unable to gather SOCIAL HISTORY: unable to gather due to patient's somnolence MENTAL STATUS EXAM: General Appearance: Patient appears to be older than stated age is not alert. Patient heavily sedated. Patient appears to have fair hygiene and grooming wearing hospital gown with matted hair. Behavior: Patient is calmly lying in bed without any agitated behavior. Eyes closed. Sedated Speech: Patient's speech is garbled and slurred. Hard to understand, minimal Mood/Affect: unable to assess Suicidality/Homicidality: unable to assess Perceptions: unable to assess Though content/process: unable to assess Memory and concentration: AO to name only Judgment and insight: Poor IMPRESSIONS: delirium, likely multiple etiologies PLAN: -At this time patient DOES NOT meet criteria for inpatient psychiatric admission. -Delirium precautions recommended with patient including - avoiding use of narcotics and [employer] sedatives, limit anticholinergic medications when possible, frequent re-orientation, minimize use of restraints, open window shades during the day and close them at night -Would recommend the following medication changes/additions: Change Seroquel to 200mg qhs for insomnia/psychosis/delirium, discontinue Ativan and risperdal, added Prolixin p.o. and IM as needed for agitation. Please avoid benzodiazep anderson and opiates and [employer] sedatives as this will further exacerbate patient's delirium -Continue your management for medical comorbidities -Communicated plan to patient's nurse Psychiatry will sign off at this time unless patient further decompensates psychiatrically then please contact psychiatry for further recommendations. -Please contact with any questions. 09/09/23 14:41
[2023-09-09] MEDS: flUPHENAZine 2.5 MG/ML (MDV) 10 ML VIAL IM PRN (16:12)
[2023-09-09 16:16] LABS: Glucose,Whole Blood 108 mg/dL (70-110)
[2023-09-09 19:44] LABS: Glucose,Whole Blood 107 mg/dL (70-110)
[2023-09-09] MEDS: QUEtiapine 200 MG TAB PO SCH (21:26)
--- NOTE | 2023-09-09 23:30 | EEG ---
ELECTROENCEPHALOGRAM REPORT PREAMBLE: This is a 58-year-old female with history of cardiac arrest, has persistent encephalopathy, confusion, this study is performed to rule out any seizure activity. EEG FINDINGS: This is a 21-channel digital EEG recorded with video component, utilizing 10/20 international system with referential and bipolar montage. Background consists of well developed, well regulated, low to medium amplitude 10-11 Hertz alpha activity seen in posterior head region. Background is posterior dominant and reactive to eye opening and closing. Some intermixed 6-7 Hertz theta activity was also seen. Some sporadic left temporal slowing was seen, but the seen area was also affected with significant technical or movement artifact precluding evaluation of underlying electrocerebral activity. Different sleep was not seen. Photic driving response was not clearly seen. IMPRESSION: This is a borderline abnormal EEG due to minimal background slowing, suggestive of mild encephalopathy. EEG was technically limited due to frequent myogenic/movement artifact involving the left temporal region. No focal or generalized epileptiform activity was seen. When compared to the EEG from 08/29/2023, the background has remarkably improved. MMODL / IJN: [id number] /
[2023-09-10] MEDS: HYDROmorphone 0.5 MG/0.5 ML SYRINGE IVP PRN (00:13)
[2023-09-10 06:16] LABS: Glucose,Whole Blood 98 mg/dL (70-110)
[2023-09-10] MEDS: OXYMETAZOLINE 0.05% NASL SPRAY 1 SPRAY BOTTLE NASAL SCH (09:49)
[2023-09-10 11:22] LABS: Glucose,Whole Blood 177 mg/dL (70-110)
--- NOTE | 2023-09-10 11:32 | P.PN ---
Subjective Patient is seen for follow-up for acute kidney injury. She is confused but mentation appears to be slightly better than yesterday. Renal function has improved with creatinine staying at about 1.5 mg/dL. Objective - Vital Signs Vital signs: Vital Signs Temp 97.4 F L 09/10/23 08:00 Pulse 93 09/10/23 08:00 Resp 20 09/10/23 08:00 BP 178/95 09/10/23 08:00 Pulse Ox 92 L 09/10/23 08:00 FiO2 3 09/02/23 04:00 Intake & Output 09/09/23 09/10/23 09/10/23 18:59 06:59 18:59 Intake Total 530 420 Output Total 1450 600 500 Balance -920 -600 -80 Weight 63.9 kg Intake: Oral 530 420 Output: Urine 1450 600 500 Other: Voiding Method Indwelling Catheter Indwelling Catheter Indwelling Catheter ABP, PAP, CO, CI - Last Documented Arterial Blood Pressure 125/73 - Exam Patient is awake. She is comfortable. Confused Examination of the heart S1 and S2 Examination of the lungs bilateral breath sounds are heard Abdomen is soft nontender Examination of lower extremities shows trace edema - Labs CBC & Chem 7: 09/09/23 08:57 09/09/23 08:57 Labs: Abnormal Lab Results - Last 24 Hours (Table) 09/09/23 09/10/23 Range/Units 11:30 11:20 POC Glucose (mg/dL) 143 H 177 H (70-110) mg/dL Assessment and Plan Assessment: 1. Acute kidney injury secondary to ATN secondary to cardiorenal syndrome and cardiac arrest. Creatinine stable at 1.5. Patient was on hemodialysis in the past with last treatment being July 02, 2023. Dialysis catheter it is now removed. Renal US no hydronephrosis. 2. Volume overload. Improved with diuresis. 3. Acute on chronic diastolic CHF. 4. Diabetes mellitus. 5. Right foot wound. 6. Coronary disease with cardiac stenting. 7. Status post PEA arrest with concern for anoxic encephalopathy. 8. Septic Shock-urine culture is growing E. coli. Catheter tip culture is growing corynebacterium, blood culture negative so far. 9. Metabolic acidosis, nongap, improved 10. Hypernatremia, status post D5W, improved Plan: continue with IV Lasix check sodium today. DC D5W sodium is further improved. Repeat labs in a.m.
[2023-09-10 12:27] LABS: Anisocytosis Slight; Basophils # (A) 0.1 k/uL (0-0.2); Basophils % (A) 1 %; Eosinophils # (A) 0.4 k/uL (0-0.7); Eosinophils % (A) 6 %; HCT 31.4 % (34.0-46.0); HGB 9.5 gm/dL (11.4-16.0); Hypochromasia Moderate; Lymphocytes # (A) 0.6 k/uL (1.0-4.8); Lymphocytes % (A) 10 %; MCH 28.8 pg (25.0-35.0); MCHC 30.3 g/dL (31.0-37.0); MCV 94.8 fL (80.0-100.0); Macrocytosis Slight; Mean Platelet Volume 9.3; Monocytes # (A) 0.6 k/uL (0-1.0); Monocytes % (A) 9 %; Neutrophils # (A) 4.2 k/uL (1.3-7.7); Neutrophils % (A) 71 %; Platelet Count 241 k/uL (150-450); Poikilocytosis Slight; RBC 3.31 m/uL (3.80-5.40); RDW 18.2 % (11.5-15.5)
[2023-09-10 12:35] LABS: African American GFR (CKD) 47 (>60 ml/min/1.73 sqM); Anion Gap 4 mmol/L; Blood Urea Nitrogen 27 mg/dL (7-17); Calcium 8.1 mg/dL (8.4-10.2); Carbon Dioxide 32 mmol/L (22-30); Chloride 104 mmol/L (98-107); Glucose 106 mg/dL (74-99); Non-African American GFR(CKD) 41 (>60 ml/min/1.73 sqM); Potassium 3.7 mmol/L (3.5-5.1); Sodium 140 mmol/L (137-145)
--- NOTE | 2023-09-10 12:44 | P.PN ---
Subjective Progress Note Date: 09/10/23 Principal diagnosis: Respiratory failure. Pulmonary consult dated August 23, 2023. This is a 57-year-old female who was admitted back on August 18, for a right heel wound. Early this morning, the patient had a cardiopulmonary arrest. The patient apparently was initially found to be bradycardic, and then had asystole. She received 3 rounds of epinephrine. She arrived to the intensive care unit this morning at 630, having been intubated on the floor by anesthesia. In the I CU, the patient had an episode of pulseless electrical activity, and asystole, and received 2 rounds of epinephrine, a dose of atropine, and some sodium bicarbonate. I came into the intensive care unit this morning, early, to place a left internal jugular triple-lumen catheter, and a right femoral arterial line. Currently, the patient is on volume assist-control, rate 16, tidal volume 400, FiO2 50%, PEEP of 5. The most recent blood gases show pO2 of 75, pCO2 49, pH is 7.44. Arterial blood gases shortly after intubation showed a pO2 of 268, pCO2 of 38, and a pH of 7.25. The patient is currently on norepinephrine at 1.4 mcg/min, and saline at 50 cc an hour. Current labs include a white count 13.8, hemoglobin 9.5, hematocrit 31, and a platelet count of 257,000. PT was 12.9 with an INR of 1.2. Sodium 135, potassium 4.9, chlorides 111, CO2 19, anion gap 5, BUN 62, creatinine 2.76. The patient's AST is 468. ALT is 286. Albumin is 2.1. Urine, is suspicious for possible infection. Brain CT Today, Shows No Acute Intracranial Process. Chest x-ray shows bilateral patchy airspace d isease, right greater than left. Progress note dated August 24, 2023. The patient is seen today in the intensive care unit, room 255. The patient remains on the mechanical ventilator. Current settings include volume assist- control, rate 16, tidal volume 400, FiO2 50%, PEEP of 5. The tidal volume will be dropped down to 350, and the FiO2 will be dropped down to 40%, current blood gases show pO2 132, pCO2 34, pH is 7.37. The patient continues on 0.9 at 50 cc an hour, propofol at 20 mcg/kg/min, and vital 1.2 at 10 cc an hour, with a goal of 48. The patient is discovered to have gram-negative bacilli in the urine. She continues on Zosyn. White count 9, hemoglobin 9.6, hematocrit 30.1, p latelet count 242,000. Sodium 138, potassium 4.7, chloride 113, CO2 18, BUN 63, and creatinine 2.65. Anion gap is 7. The patient's AST is 199, ALT is 235. Troponin is 0.565. Albumin is 2.0. The gram-negative bacilli in the urine was discovered to be Escherichia coli. Chest x-ray shows an endotracheal tube that is too low in the trachea, and should be pulled back. In addition, there is evidence of underlying vascular congestion, and/or infiltrates. Progress note dated August 25, 2023. 57-year-old female seen again in room 255. The patient remains on mechanical ventilator. She is on volume assist-control, rate 16, tidal volume 350, FiO2 40%, PEEP of 5. Blood gases show a pO2 of 95, pCO2 of 39, pH is 7.31. The patient is getting propofol 35 mcg/kg/min, saline at 50 cc an hour, and dopamine at 2.5 mcg/kg/min. The patient continues on Zosyn for Escherichia coli. The patient did develop some bradycardia, overnight, which required her to be on dopamine. We are going to order some Dopplers of the lower extremities. In addition, we will do a daily interruption of sedation, and a spontaneous breathing trial. Count is 10.5, hemoglobin 10.3, hematocrit 32.7, platelet count 314,000. Sodium 140, potassium 4.8, chlorides 113, CO2 18, BUN 57, creatinine 2.49. Glucose is 142. Magnesium is 2.1, calcium is 7.0. The patient's urine specimen from August 21, revealed Escherichia coli. Dopplers of the lower extremities were negative. Chest x-ray shows some patchy bilateral in filtrates, more left-sided than right-sided. On today's evaluation of 08/26/2023, the patient is being seen for a follow-up. The patient is post cardiopulmonary arrest that occurred on 08/23/2023 and the patient return of spontaneous circulation. Subsequently, the patient was extubated on 08/25/2023. The patient is currently on 4 L of oxygen by nasal cannula. The patient remains encephalopathic. At times, restless in bed and somewhat agitated. Based on that, made recommendations to start the patient on Precedex at the low-dose to control her restlessness and agitation. She is also noted to have a right ankle fracture and a chronic nonhealing heel ulcer, stage [place]. She was also found to have an E. coli in her urine possibly underlying urine tract infection on 08/22/2023. On today's evaluation, the patient is on 40s of oxygen by nasal cannula. Chest x-ray showing cardiomegaly and the patient has a left subclavian triple-lumen catheter in place. Hemodynamically stable on no pressors. WBC count of 8.6 with a hemoglobin 8.5 and a platelet count of 217. BUN is 51 with a creatinine of 2.28 and a sodium level is at 141 and a bicarb level is at 17. The patient is moving all 4 extremities without any limitation. The patient is currently afebrile. Nephrology is on the case regarding MARYLOU which is probably secondary to ATN and has creatinine is being monitored. Fluid balance over the past 24 hours has been 250 cc positive and the patient shows no signs of any significant fluid overload. The patient is currently on IV Zosyn regarding the possibility of an aspiration/E. coli urinary tract infection and is stage III right heel wound. She remains on bronchodilators. She is on no pressors for now. No other significant events overnight. As mentioned, she was extubated yesterday and the chest x-ray shows distal stable left-sided pleural effusion. The echocardiogram that was done on 08/20/2023 showed a preserved left ventricular ejection fraction, no significant valvular abnormalities. The patient also had Doppler of the lower extremity on 08/25/2023 that revealed no evidence of any DVT. There was a prominent lymph node in the right groin measuring 2.6 cm in size. The patient did have a catheter in her right IJ at the time of admission that was removed and the cultures came back positive for corynebacterium. On today's evaluation of 08/27/2023, the patient is being seen for a follow-up. Patient is postcardiac arrest and the patient is having some signs of anoxic encephalopathy. She was restless and confused and somewhat agitated. Based on that, the patient was started on Precedex yesterday and Precedex is running at 0.4 mcg/kg/h. No significant agitation at this point in time. She seems to be calm and comfortable. She follows occasional simple commands. No agitation. No focal neurological deficits. She is currently on 2 L of oxygen nasal cannula and she is also on lactated Ringer at rate of 50 cc an hour. Urine output is in order of 30 cc an hour. Overall fluid balance has been +700 cc over the past 24 hours. The blood work shows a WC count of 8.2 with a hemoglobin 8.6 and a platelet count of 200, BUN is at 48 with a creatinine of 2.22 and a sodium level of 141. The serum bicarb level is at 18. A repeat limited echocardiogram was done yesterday and the patient showed improvement and in the LV function and the patient ejection fraction is in order of 55 to 60% without any significant segmental wall motion abnormalities. The patient is afebrile. The patient is hemodynamically stable at this point in time. Nephrology on the case regarding her chronic renal failure. On today's evaluation of 08/28/2023, the patient continues to require Precedex for increased agitation and restlessness. While off sedation, thrashes around. Currently she is calm and comfortable being on Precedex at 0.7 mcg/kg/h. She is on 3 L of oxygen by nasal cannula. No signs of any respiratory distress. No focal neurological deficits. She continues to complain of chest wall soreness and pain related to CPR and based on that the patient was given IV Tylenol and she is also Abing[place] for pain control. WBC count is 7.1 with a hemoglobin of 8.7 and a platelet count of 214. BUN is at 50 with a creatinine of 2.45 and a sodium level of 140 with a potassium level of 5.1. She is afebrile. She is hemodynamically stable at this point in time. Progress note dated August 29, 2023. The patient is seen today in room 255, intensive care unit. The patient was extubated from mechanical ventilation on August 24. She continues on oxygen by nasal cannula at 2 L. She is getting saline at 50 cc an hour. She does continue on Zosyn. She also continues on dexmedetomidine at 0.4 mcg/kg/h, for ongoing restlessness and agitation. Current labs include a white count of 6, hemoglobin 8.4, hematocrit 27.4, and a normal platelet count. Sodium 144, pot assium 4.9, chlorides 117, CO2 18, BUN 54, creatinine 2.86. The patient's glucose was 103. Calcium is 7.6. Urine from August 21 with positive for Escherichia coli. Catheter tip, from August 22 with positive for Corynebacterium species. Reevaluated today on 09/04/2023, patient is about the same, remains in the ICU as an overflow, patient has intermittent episodes of agitation and restlessness, remains on Seroquel, remains on Ativan as needed, patient is requiring intermittent medications for sedation, she is not requiring any more Precedex. Patient has a bedside sitter, and she needs almost constant attention. Labs including CBC and basic metabolic profile are normal BUN however is 67 crea tinine 2.04 Reevaluated 09/05/2023, patient is about the same, continues to have intermittent episodes of agitation and restlessness, she is on D5W@50 mL/h she is also on Ativan 0 0.5 mg every 4 hours as needed intermittently receiving Lasix and she is on it now maintenance 40 mg IV push every 12 hours I cut it down to once a day. Continues to require sitter at bedside because of her intermittent episodes of agitations, today I added Risperdal 0.25 mg daily. WBC count is 6.5 hemoglobin 7.3 basic metabolic profile is normal BUN is 57 creatinine 1.89, improving Reevaluated on 09/06/2023, patient remains in the ICU, remains agitated intermittently, combative, when I evaluated the patient she was very calm and resting, sleeping, however apparently overnight the patient was extremely agitated and did not sleep much last night. Her Risperdal dose will be increased to 0.25 mg twice daily. The meantime patient is on many other medications to keep her calm and sedated. Patient has a sitter at bedside, does not seem to be in any distress labs today are unremarkable except hemoglobin of 7.6 basic metabolic profile is normal BUN is 52 creatinine 1.71 steadily improving over the last week Patient was reevaluated today on 09/07/2023, patient remains in the ICU, patient continues to have intermittent episodes of confusion, agitation, restlessness, does not seem to be in any respiratory distress, although her chest x-ray did show evidence of pulmonary edema and I recommended a dose of Lasix 40 mg IV push to be given now. Patient is on different types of medications to keep her calm, however does not seem to be helping, and now I am recommending a psychiatric consultation on this patient. WBC count is 6.0 hemoglobin 8.3 electrolytes are normal BUN is 40 creatinine 1.61, steadily improving. Patient is receiving Seroquel 150 twice daily she is also receiving Risperdal 0.25 twice daily, Ativan as needed but she is not requiring much Ativan. Patient is also on multiple cardiac meds. Patient was evaluated today on 09/08/2023, she is now out of the ICU, continues to have intermittent episodes of confusion and agitation, she has a sitter at bedside, today she seems to be [place]. Chest x-ray today showed evidence of worsening pulmonary edema although clinically the patient seems to be doing fine, hence I recommended increasing her Lasix up to 40 mg IV push twice daily. Patient is yet to be seen by psychiatry on consultation. WBC count is 3.4 hemoglobin 7.3 basic metabolic profile is normal BUN is 38 creatinine 1.54. Chest x-ray as noted earlier. Progress note dated September 09, 2023. The patient is seen today in room 356. She is currently on 4 L of oxygen. She is receiving Zosyn. The patient has episodes of confusion and agitation, and has had a sitter at the bedside, for quite some time. Currently, speech pathology is in the room with the patient, evaluating her ability to properly take food by mouth. Laboratory data includes a white count 4.7, hemoglobin 9.8, hematocrit 30.8, and a platelet count of 227,000. Sodium 143, potassium 3.5, chlorides 106, CO2 30, BUN 32, creatinine 1.53. Glucose is 143. Calcium is 8.3. Previous culture data shows urine positive for E. coli, August 21, and a catheter tip with corynebacterium species, from August 22. Chest x-ray from today shows some cardiomegaly, and mild pulmonary vascular congestion. Progress note dated September 10, 2023. The patient is seen today in room 356. She is currently on oxygen at 4 L. She is getting D5W at 50 cc an hour. The patient is much less agitated today. Still has a sitter. Current labs include a white count of 6, hemoglobin 9.5, hematocrit 31.4, and a normal platelet count. Sodium 140, potassium 3.7, chlorides 104, CO2 32, BUN 27, and creatinine 1.42. Glucose is 177. Calcium is 8.1. The patient's urine had evidence of Escherichia coli. The patient also had a catheter tip that was positive for Corynebacterium species. The patient's currently on Zosyn still. Objective - Vital Signs Vital signs: Vital Signs Temp 97.4 F L 09/10/23 08:00 Pulse 93 09/10/23 12:00 Resp 18 09/10/23 12:00 BP 163/84 09/10/23 12:00 Pulse Ox 90 L 09/10/23 12:00 FiO2 3 09/02/23 04:00 Intake & Output 09/09/23 09/10/23 09/10/23 18:59 06:59 18:59 Intake Total 530 660 Output Total 7123 675 6943 Balance -920 -600 -665 Weight 63.9 kg Intake: Oral 530 660 Output: Urine 5426 229 5889 Other: Voiding Method Indwelling Catheter Indwelling Catheter Indwelling Catheter ABP, PAP, CO, CI - Last Documented Arterial Blood Pressure 125/73 - Exam No acute distress, currently on nasal O2 at 4 L. HEENT examination is grossly unremarkable. Neck supple. Full range of motion. No adenopathy thyromegaly or neck vein distention. Cardiovascular examination reveals regular rhythm rate. S1-S2 normal. No S3 or S4. No discernible murmur noted. Heart sounds are distant. Heart rate 93 bpm. Lungs reveal scattered bilateral rhonchi. No wheezes or crackles. Breath sounds equal bilaterally. Saturation is 93 %. Abdomen soft with bowel sounds. Extremities are intact. No cyanosis clubbing or edema. Skin is without rash or lesion. Neurologic examination is difficult to assess. Patient with intermittent episodes of agitation and confusion. - Labs CBC & Chem 7: 09/10/23 10:18 09/09/23 08:57 Labs: Abnormal Lab Results - Last 24 Hours (Table) 09/10/23 09/10/23 Range/Units 10:18 11:20 RBC 3.31 L (3.80-5.40) m/uL Hgb 9.5 L (11.4-16.0) gm/dL Hct 31.4 L (34.0-46.0) % MCHC 30.3 L (31.0-37.0) g/dL RDW 18.2 H (11.5-15.5) % Lymphocytes # 0.6 L (1.0-4.8) k/uL POC Glucose (mg/dL) 177 H (70-110) mg/dL Assessment and Plan Assessment: Cardiopulmonary arrest, x 2, with cardiopulmonary resuscitation, and return of spontaneous circulation on 08/23/23, echocardiogram shows a preserved LV function. No significant valvular abnormalities at this point in time. Cardiac rhythm is sinus. Acute hypoxic respiratory failure, postcardiac arrest, intubated and subsequently extubated on 08/25/2023 currently on 4 L of O2 nasal cannula. S/P intubation, and mechanical ventilation, secondary to cardiopulmonary arrest, August 23, 2023. She was extubated on 08/25/23. Encephalopathy with possibility of an underlying hypoxic encephalopathy pos tcardiac arrest, CAT scan of the brain that was done showed no evidence of any acute abnormalities. She seems to be calm and comfortable and there is no focal neurological deficit on today's evaluation. She is moving all 4 extremities without any limitation. History of congestive heart failure. Echocardiogram from this current admission shows a preserved LV function. Coronary artery disease cardiomyopathy and the patient is post non-ST segment elevation myocardial infarction. Cardiac catheterization was done on 06/24/2023 and the patient had successful stenting of the proximal RCA with reduction of the stenosis from 70% to 0%. Troponin peaked at 1. Stage III chronic kidney disease, creatinine is stable for now, the patient required hemodialysis during earlier hospitalization and the last hemodialysis was on 07/02/2023. The patient has not received hemodialysis since then. Dialys is catheter was removed and the catheter was positive for corynebacterium. Right heel pressure ulcer, stage III. Subacute fracture of the medial and lateral malleolus. History of hypertension. History of hyperlipidemia. History of type 2 diabetes mellitus. History of severe pulmonary hypertension. History of COPD. History of peripheral neuropathy. Chest wall pain related to CPR. Plan: Plan dated August 23, 2023. The patient is seen in the intensive care unit, room 255. I came in early this morning to place an arterial line, and the internal jugular triple-lumen catheter. The patient had poor IV access. The patient is currently on norepinephrine at 1.4 mcg/min. He is getting saline at [address] scan of the brain, was negative. The patient blood gases show pO2 of 75, pCO2 of 49, pH of 7.44. We will continue to follow make recommendations along the wa y. The patient's overall prognosis remains very guarded. The patient continues on ceftriaxone, and fluconazole. Prognosis is guarded. Plan dated August 24, 2023. The patient is seen today in room 255. She remains on mechanical ventilator. The urine is showing evidence of Escherichia coli. The patient continues on Zosyn. The patient's EEG shows slowing, consistent with severe encephalopathy. There was no evidence of any seizure activity. Labs, x-rays, and all medications are reviewed. We will continue to follow the patient, make recommendations along the way. The patient's overall prognosis remains very guarded. Today we make some ventilator changes, including dropping the tidal volume down from 400, down to 350, and the FiO2, being reduced to 40%, for 50%. Plan dated August 25, 2023. The patient is seen today in room 255. She remains on the mechanical ventilator. Today, we will do a daily interruption of sedation, and a spontaneous breathing trial. Dopplers of the lower extremities were negative. She remains on Zosyn for Escherichia coli urinary tract infection. Overnight she developed bradycardia. For that she was started on dopamine by cardiology. The patient is getting saline at 50 cc an hour, propofol at 35 mcg/kg/min. Blood gases are reasonable. Will place the patient on PSV 5, CPAP 5, get some weaning parameters, and see if we can extubate the patient. We will continue to follow. Labs, x-rays, and medications are reviewed. Prognosis is guarded. Plan dated August 29, 2023. The patient will continue with dexmedetomidine, and hopefully, it will be gradually weaned off. The patient was started on Seroquel, 100 mg twice a day. The patient is currently hemodynamically stable, with no need for vasopressors. Cardiac rhythm is also stable. A repeat echocardiogram has been ordered. The patient is on [place]ing[place] for pain control. Also, the patient continues on Zosyn. Other medications include Lipitor, Norvasc, and Imdur, as well as subcutaneous h eparin for DVT prophylaxis. We will continue to monitor, in the intensive care unit. Prognosis is certainly very guarded. Neurologic status is of a concern. Appreciate input by neurology. Plan dated September 09, 2023. The patient is seen today in room 356. The patient continues on Zosyn. The patient is on 4 L of oxygen. There is a sitter at the bedside. She continues on appropriate medications including Risperdal and Seroquel. In addition, the patient continues on GI prophylaxis, and DVT prophylaxis. Though Zosyn is primarily for the cellulitis. We will continue to follow make recommendations along the way. Prognosis is guarded. She does have intermittent episodes of confusion agitation, and yelling out. Plan dated September 10, 2023. The patient is seen today in room 356. The patient still has a sitter. The patient is currently on 4 L. She continues on Zosyn. She is getting D5W at 50 cc an hour. Labs, x-rays, and medications are reviewed. She continues on appropriate medications. We will continue to follow make recommendations along the way. Prognosis is guarded. She is a bit more alert, and less agitated today. Time with Patient: Less than 30
[2023-09-10 14:16] LABS: INR 1.3 (<1.2); Partial Thromboplastin Time 28.8 sec (22.0-30.0); Prothrombin Time 13.6 sec (10.0-12.5)
--- NOTE | 2023-09-10 15:24 | P.PN ---
Subjective Progress Note Date: 09/08/23 Principal diagnosis: Reason for follow-up is right heel diabetic foot ulcer Patient is a 57-year-old female with a past medical history significant for diabetes mellitus hypertension hyperlipidemia history of renal insufficiency requiring dialysis currently not on dialysis and the patient also have a chronic nonhealing wound to the right heel area, present to the hospital with increasing shortness of breath and swelling concerning for fluid overload.Patient did have a cardiac arrest around 4 AM 08/23/2023 with the patient went into asystole got resuscitated intubated and transferred to the ICU subsequently have another cardiac arrest with PEA rhythm not resuscitated. On today's evaluation that is 09/08/2023, Patient is afebrile patient is currently on 4 L nasal cannula oxygen and breathing comfortably no distress patient remains to be lethargic and unable to provide any history no vomiting diarrhea did not change reported by the sitter at the bedside Patient did have white count of 3.4, creatinine is 1.54 Objective - Vital Signs Vital signs: Vital Signs Temp 97.5 F L 09/08/23 09:15 Pulse 80 09/08/23 09:15 Resp 18 09/08/23 09:15 BP 168/82 09/08/23 09:15 Pulse Ox 96 09/08/23 09:15 FiO2 3 09/02/23 04:00 Intake & Output 09/07/23 09/08/23 09/08/23 18:59 06:59 18:59 Intake Total 1250 120 Output Total 1475 600 Balance -225 -480 Weight 60.5 kg Intake: IV 1000 Dextrose 5% in Water 1, 1000 000 ml @ 50 mls/hr IV . Q20H [facility] Rx#:[id number] Oral 250 120 Output: Urine 1475 600 Other: Voiding Method Indwelling Catheter Indwelling Catheter Indwelling Catheter ABP, PAP, CO, CI - Last Documented Arterial Blood Pressure 125/73 - Exam GENERAL DESCRIPTION: Middle-aged female lying in bed in no distress RESPIRATORY SYSTEM: Unlabored breathing , decreased breath sounds at bases HEART: S1 S2 regular rate and rhythm , ABDOMEN: Soft , no tenderness EXTREMITIES: Right heel wound is currently dressed - Labs CBC & Chem 7: 09/10/23 10:18 09/10/23 10:18 Labs: Abnormal Lab Results - Last 24 Hours (Table) 09/07/23 09/07/23 09/08/23 Range/Units 16:07 20:29 06:07 WBC (3.8-10.6) k/uL RBC (3.80-5.40) m/uL Hgb (11.4-16.0) gm/dL Hct (34.0-46.0) % MCHC (31.0-37.0) g/dL RDW (11.5-15.5) % Lymphocytes # (1.0-4.8) k/uL Potassium (3.5-5.1) mmol/L Carbon Dioxide (22-30) mmol/L BUN (7-17) mg/dL Creatinine (0.52-1.04) mg/dL Glucose (74-99) mg/dL POC Glucose (mg/dL) 69 L 140 H 150 H (70-110) mg/dL Calcium (8.4-10.2) mg/dL 09/08/23 09/08/23 Range/Units 09:00 09:00 WBC 3.4 L (3.8-10.6) k/uL RBC 2.50 L (3.80-5.40) m/uL Hgb 7.3 L (11.4-16.0) gm/dL Hct 23.8 L (34.0-46.0) % MCHC 30.6 L (31.0-37.0) g/dL RDW 18.6 H (11.5-15.5) % Lymphocytes # 0.6 L (1.0-4.8) k/uL Potassium 3.3 L (3.5-5.1) mmol/L Carbon Dioxide 34 H (22-30) mmol/L BUN 38 H (7-17) mg/dL Creatinine 1.54 H (0.52-1.04) mg/dL Glucose 105 H (74-99) mg/dL POC Glucose (mg/dL) (70-110) mg/dL Calcium 7.7 L (8.4-10.2) mg/dL Assessment and Plan (1) Pressure ulcer of right heel, stage 3 Current Visit: No Status: Acute Code(s): L89.613 - PRESSURE ULCER OF RIGHT HEEL, STAGE 3 SNOMED Code(s): 15785357698607 (2) Type 2 diabetes mellitus with foot ulcer Current Visit: No Status: Acute Code(s): E11.621 - TYPE 2 DIABETES MELLITUS WITH FOOT ULCER; L97.509 - NON-PRESSURE CHRONIC ULCER OTH PRT UNSP FOOT W UNSP SEVERITY SNOMED Code(s): 310392704 (3) UTI (urinary tract infection) Current Visit: Yes Status: Acute Code(s): N39.0 - URINARY TRACT INFECTION, SITE NOT SPECIFIED SNOMED Code(s): 95337109 (4) Aspiration pneumonia Current Visit: Yes Status: Acute Code(s): J69.0 - PNEUMONITIS DUE TO INHALATION OF FOOD AND VOMIT SNOMED Code(s): 078402464 Plan: 1patient with chronic nonhealing wound to the right heel area which has been there for a couple of months now patient overall wound base looks clean with no slough tissue in the wound base 2-patient did have cardiac arrest requiring resuscitation in this patient who did have a chest x-ray with a right-sided infiltrate and question of aspiration pneumonia, the patient urine culture grew E. coli with some resistant pattern, sputum has been negative blood culture has been negative catheter tip cultures growing corynebacterium species more likely contamination with repeat blood culture negative no need for vancomycin. 3patient is afebrile white count remains remains to be normal, to continue with Zosyn and monitor clinical course closely Dictation was produced using [employer] dictation software. please excuse any grammatical, word or spelling errors. Time with Patient: Less than 30
--- NOTE | 2023-09-10 15:25 | P.PN ---
Subjective Progress Note Date: 09/09/23 Principal diagnosis: Reason for follow-up is right heel diabetic foot ulcer Patient is a 57-year-old female with a past medical history significant for diabetes mellitus hypertension hyperlipidemia history of renal insufficiency requiring dialysis currently not on dialysis and the patient also have a chronic nonhealing wound to the right heel area, present to the hospital with increasing shortness of breath and swelling concerning for fluid overload.Patient did have a cardiac arrest around 4 AM 08/23/2023 with the patient went into asystole got resuscitated intubated and transferred to the ICU subsequently have another cardiac arrest with PEA rhythm not resuscitated. On today's evaluation that is 09/09/2023, patient has been afebrile, patient is breathing comfortably and is currently on 4 L nasal oxygen patient continues to be lethargic sleepy unable to provide any history no vomiting diarrhea reported by the sitter did mention she was agitated earlier and has received some sedation Patient did have white count 4.7, creat is 1.53 Objective - Vital Signs Vital signs: Vital Signs Temp 97.7 F 09/09/23 08:00 Pulse 73 09/09/23 11:58 Resp 16 09/09/23 11:58 BP 129/63 09/09/23 11:58 Pulse Ox 94 L 09/09/23 11:58 FiO2 3 09/02/23 04:00 Intake & Output 09/08/23 09/09/23 09/09/23 18:59 06:59 18:59 Intake Total 0 310 290 Output Total 1575 1700 975 Balance -1575 1390 -685 Weight 64 kg Intake: Oral 290 Blood Product 0 310 Rc As-1 Unit 0 310 [id number] Output: Urine 1575 1700 975 Other: Voiding Method Indwelling Catheter Indwelling Catheter Indwelling Catheter ABP, PAP, CO, CI - Last Documented Arterial Blood Pressure 125/73 - Exam GENERAL DESCRIPTION: Middle-aged female lying in bed in no distress RESPIRATORY SYSTEM: Unlabored breathing , decreased breath sounds at bases HEART: S1 S2 regular rate and rhythm , ABDOMEN: Soft , no tenderness EXTREMITIES: Right heel wound is currently dressed, no drainage - Labs CBC & Chem 7: 09/10/23 10:18 09/10/23 10:18 Labs: Abnormal Lab Results - Last 24 Hours (Table) 09/08/23 09/08/2309/08/24 Range/Units 15:31 16:08 08:57 RBC 3.26 L (3.80-5.40) m/uL Hgb 9.8 L D (11.4-16.0) gm/dL Hct 30.8 L (34.0-46.0) % RDW 18.5 H (11.5-15.5) % Lymphocytes # 0.6 L (1.0-4.8) k/uL BUN (7-17) mg/dL Creatinine (0.52-1.04) mg/dL POC Glucose (mg/dL) 116 H (70-110) mg/dL Calcium (8.4-10.2) mg/dL Crossmatch See Detail 09/09/23 09/09/23 Range/Units 08:57 11:30 RBC (3.80-5.40) m/uL Hgb (11.4-16.0) gm/dL Hct (34.0-46.0) % RDW (11.5-15.5) % Lymphocytes # (1.0-4.8) k/uL BUN 32 H (7-17) mg/dL Creatinine 1.53 H (0.52-1.04) mg/dL POC Glucose (mg/dL) 143 H (70-110) mg/dL Calcium 8.3 L (8.4-10.2) mg/dL Crossmatch Assessment and Plan (1) Pressure ulcer of right heel, stage 3 Current Visit: No Status: Acute Code(s): L89.613 - PRESSURE ULCER OF RIGHT HEEL, STAGE 3 SNOMED Code(s): 06911726334380 (2) Type 2 diabetes mellitus with foot ulcer Current Visit: No Status: Acute Code(s): E11.621 - TYPE 2 DIABETES MELLITUS WITH FOOT ULCER; L97.509 - NON-PRESSURE CHRONIC ULCER OTH PRT UNSP FOOT W UNSP SEVERITY SNOMED Code(s): 269608868 (3) UTI (urinary tract infection) Current Visit: Yes Status: Acute Code(s): N39.0 - URINARY TRACT INFECTION, SITE NOT SPECIFIED SNOMED Code(s): 14207564 (4) Aspiration pneumonia Current Visit: Yes Status: Acute Code(s): J69.0 - PNEUMONITIS DUE TO INHALATION OF FOOD AND VOMIT SNOMED Code(s): 415963072 Plan: 1patient with chronic nonhealing wound to the right heel area which has been there for a couple of months now patient overall wound base looks clean with no slough tissue in the wound base 2-patient did have cardiac arrest requiring resuscitation in this patient who did have a chest x-ray with a right-sided infiltrate and question of aspiration pneumonia, the patient urine culture grew E. coli with some resistant pattern, sputum has been negative blood culture has been negative catheter tip cultures growing corynebacterium species more likely contamination with repeat blood culture negative no need for vancomycin. 3patient is afebrile white count remains remains to be normal, patient has received adequate Zosyn and would not need any antibiotic on discharge Dictation was produced using [employer] dictation software. please excuse any gramma tical, word or spelling errors. Time with Patient: Less than 30
--- NOTE | 2023-09-10 15:26 | P.PN ---
Subjective Progress Note Date: 09/10/23 Principal diagnosis: Reason for follow-up is right heel diabetic foot ulcer Patient is a 57-year-old female with a past medical history significant for diabetes mellitus hypertension hyperlipidemia history of renal insufficiency requiring dialysis currently not on dialysis and the patient also have a chronic nonhealing wound to the right heel area, present to the hospital with increasing shortness of breath and swelling concerning for fluid overload.Patient did have a cardiac arrest around 4 AM 08/23/2023 with the patient went into asystole got resuscitated intubated and transferred to the ICU subsequently have another cardiac arrest with PEA rhythm not resuscitated. On today's evaluation that is 09/10/2023,the patient d is more awake and alert today, the patient enies any fever or any chills, patient is breathing comfortably on 4 L nasal cannula oxygen, the patient denies chest pain shortness of breath and no significant cough, patient denies abdominal pain, no nausea vomiting or diarrhea. Patient mention feeling better wants to go home. Patient did have white count 6.0, creatinine 1.42 Objective - Vital Signs Vital signs: Vital Signs Temp 97.4 F L 09/10/23 08:00 Pulse 93 09/10/23 12:00 Resp 18 09/10/23 12:00 BP 163/84 09/10/23 12:00 Pulse Ox 90 L 09/10/23 12:00 FiO2 3 09/02/23 04:00 Intake & Output 09/09/23 09/10/23 09/10/23 18:59 06:59 18:59 Intake Total 530 660 Output Total 5416 927 8612 Balance -920 -600 -665 Weight 63.9 kg 63.9 kg Intake: Oral 530 660 Output: Urine 2861 990 4398 Other: Voiding Method Indwelling Catheter Indwelling Catheter Indwelling Catheter ABP, PAP, CO, CI - Last Documented Arterial Blood Pressure 125/73 - Exam GENERAL DESCRIPTION: Middle-aged female lying in bed in no distress RESPIRATORY SYSTEM: Unlabored breathing , decreased breath sounds at bases HEART: S1 S2 regular rate and rhythm , ABDOMEN: Soft , no tenderness EXTREMITIES: Right heel wound is currently dressed, no drainage - Labs CBC & Chem 7: 09/10/23 10:18 09/10/23 10:18 Labs: Abnormal Lab Results - Last 24 Hours (Table) 05/09/10/23 09/10/23 Range/Units 10:18 10:18 11:20 RBC 3.31 L (3.80-5.40) m/uL Hgb 9.5 L (11.4-16.0) gm/dL Hct 31.4 L (34.0-46.0) % MCHC 30.3 L (31.0-37.0) g/dL RDW 18.2 H (11.5-15.5) % Lymphocytes # 0.6 L (1.0-4.8) k/uL PT (10.0-12.5) sec INR (<1.2) Carbon Dioxide 32 H (22-30) mmol/L BUN 27 H (7-17) mg/dL Creatinine 1.42 H (0.52-1.04) mg/dL Glucose 106 H (74-99) mg/dL POC Glucose (mg/dL) 177 H (70-110) mg/dL Calcium 8.1 L (8.4-10.2) mg/dL 09/10/23 Range/Units 13:40 RBC (3.80-5.40) m/uL Hgb (11.4-16.0) gm/dL Hct (34.0-46.0) % MCHC (31.0-37.0) g/dL RDW (11.5-15.5) % Lymphocytes # (1.0-4.8) k/uL PT 13.6 H (10.0-12.5) sec INR 1.3 H (<1.2) Carbon Dioxide (22-30) mmol/L BUN (7-17) mg/dL Creatinine (0.52-1.04) mg/dL Glucose (74-99) mg/dL POC Glucose (mg/dL) (70-110) mg/dL Calcium (8.4-10.2) mg/dL Assessment and Plan (1) Pressure ulcer of right heel, stage 3 Current Visit: No Status: Acute Code(s): L89.613 - PRESSURE ULCER OF RIGHT HEEL, STAGE 3 SNOMED Code(s): 72705538557776 (2) Type 2 diabetes mellitus with foot ulcer Current Visit: No Status: Acute Code(s): E11.621 - TYPE 2 DIABETES MELLITUS WITH FOOT ULCER; L97.509 - NON-PRESSURE CHRONIC ULCER OTH PRT UNSP FOOT W UNSP SEVERITY SNOMED Code(s): 877964271 (3) UTI (urinary tract infection) Current Visit: Yes Status: Acute Code(s): N39.0 - URINARY TRACT INFECTION, SITE NOT SPECIFIED SNOMED Code(s): 75046815 (4) Aspiration pneumonia Current Visit: Yes Status: Acute Code(s): J69.0 - PNEUMONITIS DUE TO INHALATION OF FOOD AND VOMIT SNOMED Code(s): 040264293 Plan: 1patient with chronic nonhealing wound to the right heel area which has been there for a couple of months now patient overall wound base looks clean with no slough tissue in the wound base 2-patient did have cardiac arrest requiring resuscitation in this patient who did have a chest x-ray with a right-sided infiltrate and question of aspiration pneumonia, the patient urine culture grew E. coli with some resistant pattern, sputum has been negative blood culture has been negative catheter tip cultures growing corynebacterium species more likely contamination with repeat blood culture negative no need for vancomycin. 3patient is afebrile white count remains remains to be normal, patient has received adequate Zosyn, I will go ahead discontinue Zosyn and monitor the patient closely off antibiotic therapy Dictation was produced using [employer] dictation software. please excuse any grammatical, word or spelling errors. Time with Patient: Less than 30
[2023-09-10 16:30] LABS: Glucose,Whole Blood 230 mg/dL (70-110)
[2023-09-10 20:38] LABS: Glucose,Whole Blood 203 mg/dL (70-110)
[2023-09-11 06:09] LABS: Glucose,Whole Blood 137 mg/dL (70-110)
--- NOTE | 2023-09-11 07:21 | P.PN ---
Subjective Progress Note Date: 09/10/23 57-year-old female came in with complaints of shortness of breath and orthopnea found to be in congestive heart failure exacerbation patient has congestive heart failure with reduced ejection fraction in the past patient has increasing pedal edema. Patient also has an ulcer in the right foot stage III-IV which appeared to be infected we will consult wound care and infectious disease. Patient was on hemodialysis during last hospitalization her creatinine presently is 1.5 which is significantly improved patient potassium is 5.5, patient is on Entresto and Aldactone Aldactone will be held Entresto will be continued since she is receiving IV Lasix and expecting her potassium to improve if it does not improve or get worse then Entresto need to be discontinued as well. Patient has hypervolemic hyponatremia and hyperglycemia. 08/21/2023 Was evaluated today on the medical floor. Patient was continued on IV Lasix overnight however she was no longer reporting any shortness of breath and her lower extremity edema has improved. She was taken off of the Lasix at this time due to increased creatinine up to 2.31 additionally potassium remains elevated at 5.7. Echocardiogram comes back showing an improved ejection fraction of 60 to 65% because of this and also the hyperkalemia patient will not be continued on entresto. Patient was evaluated by infectious disease who felt like that heel ulcer on the right side was more likely a pressure injury stage III and is recommending local wound care to continue with Aquacel. Patient is reporting significant pain to the right foot and feels like it is fractured. Upon review of the patient's chart she did have a x-ray completed of this 12 days ago ordered by her foreign collection clerk Dr. Mayen. Ankle x-ray did review a mildly displaced acute distal fibular fracture. Repeat x-ray of the foot and ankle completed today does reveal a subacute fractures of the medial and lateral malleolus. The lateral malleolus fracture was seen on the patient's prior exam the medial malleolus fracture may be new in the interval and this would be considered an unstable ankle fracture. There is interval 6 mm displacement of the lateral malleolus. There is a deep soft tissue ulcer at the plantar heel with no clear radiographic findings of a contagious osteomyelitis at this time. Orthooedics was consulted for this. 08/22/2023 Patient evaluated in follow-up today resting in bed. She was taken off of the Lasix remains off at this time. Bladder scan was requested and not done yesterday to rule out urinary retention, creatinine today is increased up to 2.56. Bladder scan was done require urinary straight catheterization of 550 mL taken out. Urinalysis was sent which is significantly abnormal. Patient is also noted to have multiple genital lesions which appear wartlike she admits to not having any routine gynecological screenings for many years. She is not having any vaginal bleeding or discharge. Renal ultrasound has been ordered to rule out any obstructive uropathy. 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 Patient upon arrival to the intensive care unit had another episode of cardiac arrest patient had bradycardia while on pressors in the ICU patient was intubated following the first cardiac arrest and is currently on the mechanical ventilator 50% FiO2. Chest x-ray showing similar interstitial and patchy component airspace disease right greater than left. There is a possible trace left pleural effusion. A brain CT which shows no acute intracranial process. Blood work today shows a white blood cell count of 13.8, hemoglobin 9.5, sodium level of 135, BUN of 62, creatinine of 2.76. AST ALT and alk phosphatase are significantly elevated consistent with a shock liver. TSH 3.310. Urinalysis is abnormal. Her urine culture is showing gram-negative bacilli patient is covered for the urinary tract infection as well as aspiration with IV Zosyn being managed by infectious disease. Patient is currently sedated with propofol and did require vasopressor support with Levophed which has been weaned at this time. Will discontinue the gabapentin patient is continued on aspirin Plavix and statin has been placed on hold. There is concern for possible arrhythmia precipitating the asystole additionally we need to rule out embolism and a D-dimer has been ordered. 08/24/2023 Patient is seen in follow-up today continues in the ICU on mechanical ventilation. FiO2 is 50% although titrating and was just placed at 40% with a PEEP of 5. Chest x-ray today shows that the ET tube is 7 mm from the sonam suggesting a pulled back 2 cm and reassess and also suspected underlying vascular congestion. Neuro is following and per nursing staff patient is following some simple commands and undergoing sedation holidays. Patient noted to have reduced EF of 30 to 35% and cardiology had been following. Will reconsult and appreciate input and recommendations. patient did have dialysis catheter removed and sent for cultures which are pending. Infectious disease following and patient is maintained on antibiotic. D-dimer is elevated above 16 and will attempt to obtain a VQ scan.57-year-old female came in with complaints of shortness of breath and orthopnea found to be in congestive heart failure exacerbation patient has congestive heart failure with reduced ejection fraction in the past patient has increasing pedal edema. Patient also has an ulcer in the right foot stage III-IV which appeared to be infected we will consult wound care and infectious disease. Patient was on hemodialysis during last hospitalization her creatinine presently is 1.5 which is significantly improved patient potassium is 5.5, patient is on Entresto and Aldactone Aldactone will be held Entresto will be continued since she is receiving IV Lasix and expecting her potassium to improve if it does not improve or get worse then Entresto need to be discontinued as well. Patient has hypervolemic hyponatremia and hyperglycemia. 08/21/2023 Was evaluated today on the medical floor. Patient was continued on IV Lasix overnight however she was no longer reporting any shortness of breath and her lower extremity edema has improved. She was taken off of the Lasix at this time due to increased creatinine up to 2.31 additionally potassium remains elevated at 5.7. Echocardiogram comes back showing an improved ejection fraction of 60 to 65% because of this and also the hyperkalemia patient will not be continued on entresto. Patient was evaluated by infectious disease who felt like that heel ulcer on the right side was more likely a pressure injury stage III and is recommending local wound care to continue with Aquacel. Patient is reporting significant pain to the right foot and feels like it is fractured. Upon review of the patient's chart she did have a x-ray completed of this 12 days ago ordered by her foreign collection clerk Dr. Mayen. Ankle x-ray did review a mildly displaced acute distal fibular fracture. Repeat x-ray of the foot and ankle completed today does reveal a subacute fractures of the medial and lateral malleolus. The lateral malleolus fracture was seen on the patient's prior exam the medial malleolus fracture may be new in the interval and this would be considered an unstable ankle fracture. There is interval 6 mm displacement of the lateral malleolus. There is a deep soft tissue ulcer at the plantar heel with no clear radiographic findings of a contagious osteomyelitis at this time. Orthooedics was consulted for this. 08/22/2023 Patient evaluated in follow-up today resting in bed. She was taken off of the Lasix remains off at this time. Bladder scan was requested and not done yesterday to rule out urinary retention, creatinine today is increased up to 2.56. Bladder scan was done require urinary straight catheterization of 550 mL taken out. Urinalysis was sent which is significantly abnormal. Patient is also noted to have multiple genital lesions which appear wartlike she admits to not having any routine gynecological screenings for many years. She is not having any vaginal bleeding or discharge. Renal ultrasound has been ordered to rule out any obstructive uropathy. 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 Patient upon arrival to the intensive care unit had another episode of cardiac arrest patient had bradycardia while on pressors in the ICU patient was intubated following the first cardiac arrest and is currently on the mechanical ventilator 50% FiO2. Chest x-ray showing similar interstitial and patchy component airspace disease right greater than left. There is a possible trace left pleural effusion. A brain CT which shows no acute intracranial process. Blood work today shows a white blood cell count of 13.8, hemoglobin 9.5, sodium level of 135, BUN of 62, creatinine of 2.76. AST ALT and alk phosphatase are significantly elevated consistent with a shock liver. TSH 3.310. Urinalysis is abnormal. Her urine culture is showing gram-negative bacilli patient is covered for the urinary tract infection as well as aspiration with IV Zosyn being managed by infectious disease. Patient is currently sedated with propofol and did require vasopressor support with Levophed which has been weaned at this time. Will discontinue the gabapentin patient is continued on aspirin Plavix and statin has been placed on hold. There is concern for possible arrhythmia precipitating the asystole additionally we need to rule out embolism and a D-dimer has been ordered. 08/24/2023 Patient is seen in follow-up today continues in the ICU on mechanical ventil ation. FiO2 is 50% although titrating and was just placed at 40% with a PEEP of 5. Chest x-ray today shows that the ET tube is 7 mm from the sonam suggesting a pulled back 2 cm and reassess and also suspected underlying vascular congestion. Neuro is following and per nursing staff patient is following some simple commands and undergoing sedation holidays. Patient noted to have reduced EF of 30 to 35% and cardiology had been following. Will reconsult and appreciate input and recommendations. patient did have dialysis catheter removed and sent for cultures which are pending. Infectious disease following and patient is maintained on antibiotic. D-dimer is elevated above 16 and will atte mpt to obtain a VQ scan. 08/25/23 : Patient seen and evaluated at bedside, patient extubated around noon, transition to 5 L of oxygen to nasal cannula. Family at bedside, blood work reviewed hemoglobin 10.3, serum chemistry reviewed sodium 140 potassium 4.8 BUN 57 creatinine 2.49 calcium of 7. 08/26/23 : Patient seen and evaluated at bedside, patient remains in medical ICU, does complain of chest pain from CPR. Patient has been weaned off dopamine, cardiology following, blood work reviewed, hemoglobin 8.5 platelet count of 217, serum chemistry shows sodium 141 BUN 51 creatinine 2.28. Followed up by nephrology as well MARYLOU secondary to ATN continue to monitor intake and output 08/27/23: Patient seen and evaluated bedside, on evaluation patient is disoriented, patient is drowsy however likely having acute delirium. Seen by cardiology echocardiogram shows preserved ejection fraction continue with current medical management, patient on Precedex for acute delirium, continue to remain on oxygen supplementation with nasal cannula blood work reviewed CBC showed WBC 8.2 hemoglobin 8.6 serum chemistry showed creatinine of 2.22. Patient remains delirious, daughter at bedside all questions answered 08/28/2023 Patient was agitated earlier requiring Seroquel and Placed on Precedex because she was has risk to self and others Currently when I saw the patient she was sleepy However she is not tachypneic show does not look in pain. Vitals are stable She is saturating 91% on 2 L oxygen via nasal cannula She remains on Zosyn for pneumonia and UTI She is on normal saline at 50 mL/h 08/29/2023 Patient remains sleepy, she still has some encephalopathy But she is on Precedex which will be tapered off by pulmonary team today to assess her mentation as well. Patient has been followed by neurology for suspected anoxic brain injury after her cardiac arrest and return of circulation on 08/22. There is no evidence of seizure-like activity She has catheter tip infection with culture growing Corynebacterium species and she is currently covered with Zosyn which also help for her right heel pressure ulcer and aspiration pneumonia and UTI. Cardiology evaluated the patient and there is no clear evidence for her cardiac arrest although she has history of coronary artery disease and previous stents. Currently with no chest pain. She remains on aspirin and Plavix, gentle hydration, IV steroids 08/30/2023 Today her sedation remains off however patient mentation not completely resolved, it is somewhat better as she was more sleepy yesterday She is eating okay, swallowing is fine She was started on IV Lasix twice daily per post closing specialist. She has good urine output and normal send discontinued She is hemodynamically stable and oxygenation is acceptable Remains on aspirin and Plavix and Seroquel 08/31/23: Seen and evaluated at bedside, patient remains on 4 L of oxygen, blood work reviewed, WBC 7.3 hemoglobin 9.1 platelet count of 203 glucose 119. CBC reviewed showed WBC 7.3 hemoglobin 9.1 platelet count of 203.. Neurology consulted and following. Patient is awake and alert able to answer questions and follow commands sister at bedside all questions answered 09/01/23: Seen and evaluated at bedside, patient vitals reviewed, serum chemistry reviewed sodium 145 potassium 4.6 creatinine 2.71, CBC reviewed patient remains on IV Zosyn , appreciate input from nephrology continue patient on IV Lasix, delirium persist 09/02/23: Patient seen and evaluated bedside, patient been admitted for cardiopulmonary arrest, respiratory failure s/p extubation on nasal cannula however continues to remain delirious. Blood work reviewed hemoglobin 8.8, platelet count 226, serum chemistry reviewed creatinine 2.55 potassium 4.5. MRI brain has been ordered which is pending, patient remains disoriented 09/03/2023 Patient is seen in follow-up status post recent extubation maintained on a few liters of pulmonary meterman following closely. Cardiology following as well and adjusted medications recommending continuing with current medication regimen. No change in mentation as patient continues with periods of confusion and restlessness. Medications being adjusted and Ativan as needed has been added. Continue Seroquel. Patient will answer questions appropriately and discuss her health history and can recall her doctors names but will ramble on regarding something irrelevant during conversation. Patient is redirectable. Patient continues with partial cast noted on the lower extremity. Patient continues on IV Lasix and kidney functions are improving nephrology following closely. Plan is for patient to possibly move out of the ICU. Will have PT/OT therapy evaluate the patient and discuss further with consultations along with case management regarding possible ECF versus discharge planning. 09/04/2023 Patient seen in follow-up today and continues to have periods of confusion and restlessness. Patient continues in the ICU with multiple medical consultations following. Hemoglobin was found to be less than 7 today and will transfuse 1 unit of PRBC. Sodium 147 and recommend repeat labs as well. Nephrology is following and patient is continued on IV Lasix. MRI of the brain remains pending and neurology is following. 09/05/2023 Patient is seen and evaluated today continues to be in the ICU needs continuous reinforcement on keeping oxygen on. Patient does have a safety sealer at the bedside. Patient is currently resting although remains confused and anxious and agitated at times. Hemoglobin is stable above 7 status post 1 unit of PRBC. Patient continues on IV Lasix daily and nephrology following closely. Patient to continue on IV antibiotics with infectious disease following. 09/06/2023 Patient seen in follow-up today continues to be sleepy at this time although when awake patient is extremely restless and agitated requiring sitter at the bedside. Adjustments to medications being made and Risperdal is being increased and will continue with Seroquel. Ativan as needed. Patient's hemoglobin is stable with no active bleeding noted. Neurology following as patient continues to be unable to obtain an MRI and will have a repeat EEG as well as CT brain per neurology. Patient is afebrile and is continued on antibiotics with infectious disease following. 09/09/2023 Patient seen in follow-up today has been transitioned out of the ICU and curren tly on selective unit and continues with safety sealer at the bedside. Patient is keeping her oxygen on currently and is on 4 L. Multiple medical consultations following and per nursing staff patient was able to get up and work with physical therapy today. Plan is for ECF when patient's mentation is improved. Patient continues on IV Lasix twice daily as well with nephrology following. Continue Ativan as needed and patient is also maintained on Risperdal twice daily. Patient is afebrile with no reports of chest pain or shortness of breath. Hemoglobin is stable at 9.8 and white count is normal and kidney functions are improving. Continue monitoring Accu-Cheks before meals and at bedtime and will continue with sliding scale. Neurology following and patient is scheduled to undergo repeat brain CT today. Chest x-ray continues to show pulmonary vascular congestion. 09/10/2023 Patient is seen in follow-up today and mentation is much improved with family sitting at the bedside. Patient is able to have conversation and reports she is going home although patient has significant weakness and will be requiring ECF on discharge. Case management following awaiting for ECF evaluation and will require insurance authorization. Patient is afebrile and has been on IV antibiotics in the form of Zosyn with infectious disease following and white count remains normal and patient will be monitored off antibiotic therapy. Patient also continues on IV Lasix twice daily along with treatments and continued supplemental oxygen. Patient is on 4 L via nasal cannula. Review of systems: Constitutional: No reports of fatigue, fever, or chills Cardiovascular: No reports of chest pain or palpitations Respiratory: No reports of shortness of breath or cough GI: No reports of nausea, vomiting, or diarrhea : No reports of dysuria or retention Neurovascular: reports of generalized weakness but improving and reports feels fine to go home All medications have been reviewed Active Medications Acetaminophen (Acetaminophen Tab 325 Mg Tab) 650 mg PO Q6HR PRN PRN Reason: Fever and/ or Pain Last Admin: 09/07/23 20:41 Dose: 650 mg Albuterol/Ipratropium (Ipratropium-Albuterol 3 Ml Neb) 3 ml INHALATION RT-QID PRN PRN Reason: Dyspnea Amlodipine Besylate (Amlodipine 5 Mg Tab) 5 mg PO DAILY [facility] Last Admin: 09/09/23 09:14 Dose: 5 mg Aspirin (Aspirin 81 Mg) 81 mg PO DAILY [facility] Last Admin: 09/09/23 09:13 Dose: 81 mg Atorvastatin Calcium (Atorvastatin 40 Mg Tab) 40 mg PO DAILY [facility] Last Admin: 09/09/23 09:14 Dose: 40 mg Clopidogrel Bisulfate (Clopidogrel 75 Mg Tab) 75 mg PO DAILY [facility] Last Admin: 09/09/23 09:14 Dose: 75 mg Darbepoetin Frantz (Darbepoetin Frantz 40 Mcg/0.4 Ml Syringe) 40 mcg SQ Q7D [facility] Last Admin: 09/06/23 11:45 Dose: 40 mcg Dextrose/Water (Dextrose 50% Syringe 50 Ml) 25 ml IVP PER PROTOCOL PRN; Protocol PRN Reason: Hypoglycemia Last Admin: 08/23/23 21:17 Dose: 25 ml Dextrose/Water (Dextrose 50% Syringe 50 Ml) 50 ml IVP PER PROTOCOL PRN; Protocol PRN Reason: Hypoglycemia Docusate Sodium (Docusate 100 Mg Cap) 100 mg PO BID [facility] Last Admin: 09/09/23 21:26 Dose: 100 mg Fluphenazine HCl (Fluphenazine 5 Mg Tab) 5 mg PO Q6HR PRN PRN Reason: Agitation Fluphenazine HCl (Fluphenazine 2.5 Mg/Ml (Mdv) 10 Ml Vial) 5 mg IM Q6HR PRN PRN Reason: Agitation Last Admin: 09/09/23 23:21 Dose: 5 mg Folic Acid (Folic Acid 1 Mg Tab) 1 mg PO DAILY [facility] Last Admin: 09/09/23 09:14 Dose: 1 mg Furosemide (Furosemide 10 Mg/Ml 4 Ml Vial) 40 mg IV Q12HR [facility] Last Admin: 09/09/23 21:26 Dose: 40 mg Heparin Sodium (Porcine) (Heparin Sodium,Porcine 5,000 Unit/Ml 1 Ml Vial) 5,000 unit SQ Q12HR [facility] Last Admin: 09/09/23 21:26 Dose: 5,000 unit Hydromorphone HCl (Hydromorphone 0.5 Mg/0.5 Ml Syringe) 0.5 mg IVP Q4HR PRN PRN Reason: Severe Pain (Scale 7 to 10) Last Admin: 09/10/23 00:13 Dose: 0.5 mg Piperacillin Sod/Tazobactam (Sod 3.375 gm/ Sodium Chloride) 100 mls @ 25 mls/hr IVPB Q12HR [facility]; Protocol Last Admin: 09/09/23 21:26 Dose: 25 mls/hr Dextrose/Water (Dextrose 5%-Water Iv Soln) 1,000 mls @ 50 mls/hr IV .Q20H [facility] Last Admin: 09/10/23 06:11 Dose: 50 mls/hr Insulin Aspart (Insulin Aspart (Novolog) 100 Unit/Ml Vial) 0 unit SQ ACHS [facility]; Protocol Last Admin: 09/10/23 06:11 Dose: Not Given Isosorbide Mononitrate (Isosorbide Mononitrate Er 30 Mg Tab.Er.24h) 30 mg PO DAILY [facility] Last Admin: 09/09/23 09:14 Dose: 30 mg Lidocaine (Lidocaine 4% Patch) 1 patch TOPICAL DAILY [facility]; Protocol Last Admin: 09/09/23 09:14 Dose: 1 patch Metoprolol Tartrate (Metoprolol Tartrate 12.5 Mg Tab) 12.5 mg PO BID [facility] Last Admin: 09/09/23 21:26 Dose: 12.5 mg Multivitamins (Multivitamins, Thera 1 Each Tab) 1 each PO DAILY [facility] Last Admin: 09/09/23 09:14 Dose: 1 each Oxymetazoline HCl (Oxymetazoline 0.05% Nasl Foster 1 Foster Bottle) 2 spray NASAL BID [facility] Pantoprazole Sodium (Pantoprazole 40 Mg/10 Ml Vial) 40 mg IVP DAILY [facility] Last Admin: 09/09/23 09:09 Dose: 40 mg Quetiapine Fumarate (Quetiapine 200 Mg Tab) 200 mg PO HS [facility] Last Admin: 09/09/23 21:26 Dose: 200 mg Ropinirole HCl (Ropinirole Hcl 1 Mg Tab) 1 mg PO HS PRN PRN Reason: restless legs Last Admin: 09/09/23 23:34 Dose: 1 mg Ropinirole HCl (Ropinirole Hcl 1 Mg Tab) 1 mg PO HS [facility] Last Admin: 09/09/23 21:26 Dose: 1 mg Thiamine HCl (Thiamine 100 Mg Tab) 100 mg PO DAILY [facility] Last Admin: 09/09/23 09:14 Dose: 100 mg PHYSICAL EXAMINATION: GENERAL: The patient is on nasal cannula, awake alert and oriented x 2, much more appropriate today, elderly appearing, unkept, ill-appearing HEENT: Pupils are round and equally reacting to light. EOMI. CARDIOVASCULAR: S1 and S2 muffled PULMONARY: Decreased breath sounds bilaterally with some scattered rhonchi noted ABDOMEN: Soft, nontender, nondistended, normoactive bowel sounds. No palpable organomegaly. MUSCULOSKELETAL: No joint swelling or deformity. EXTREMITIES: Right lower extremity bandage with partial cast noted NEUROLOGICAL: pupils reactive, less anxious, cooperative, SKIN: Patient has right plantar surface ulcer on the posterior foot stage III-IV with areas of necrotic tissue. Casting and Tam wrap noted of the right lower extremity Assessment: * Asystole/cardiopulmonary arrest x 2 with CPR/ROSC * Respiratory failure requiring intubation s/p extubation 08/25/2023 * Acute metabolic encephalopathy * Congestive heart failure with systolic dysfunction acute on chronic exacerbation * Acute hypoxic respiratory failure secondary to CHF * Ischemic cardiomyopathy with improved EF * Acute kidney injury secondary to ATN on chronic kidney disease stage III * Urinary tract infection with E. coli * Subacute fracture of the medial and lateral malleolus, orthopedics following * Right heel stage III pressure injury continue local wound care with aquacel ID following. 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 Wean FiO2 as tolerated and patient is maintained on 3 to 4 L via nasal cannula Patient continues on IV Lasix twice daily and chest x-ray showing continued pulmonary vascular congestion, weaning FiO2 as tolerated and improving Patient was able to work with PT/OT therapy again today and will await updated notes with case management following as plans are for patient to go to ECF. Chart being reviewed and patient will also require insurance authorization Mentation continues to wax and wane although patient is more awake today and able to respond and answer questions more appropriately Continue safety sealer at this time Hemoglobin is stable above 9 today with no active bleeding noted. Transfuse if [address] of the brain is negative for acute process. Neurology following Due to multiple complex medical issues, prognosis is guarded Possible discharge planning in the next 24 to 48 hours to ECF The impression and plan of care has been dictated by Mouna Rowley Nurse Practitioner as directed. Dr. Wyatt MD I have performed a history and examination and MDM of this patient, discussed the same with the dictator, and agree with the dictator's assessment and plan as written ,documented as a scribe. Based on total visit time, I have performed more than 50% of the visit. Objective - Vital Signs Vital signs: Vital Signs Temp 97.1 F L 09/10/23 04:10 Pulse 84 09/10/23 04:10 Resp 18 09/10/23 04:10 BP 141/79 09/10/23 04:10 Pulse Ox 93 L 09/10/23 04:10 FiO2 3 09/02/23 04:00 Intake & Output 09/09/23 09/10/23 09/10/23 18:59 06:59 18:59 Intake Total 530 Output Total 1450 600 Balance -920 -600 Weight 63.9 kg Intake: Oral 530 Output: Urine 1450 600 Other: Voiding Method Indwelling Catheter Indwelling Catheter ABP, PAP, CO, CI - Last Documented Arterial Blood Pressure 125/73 - Labs CBC & Chem 7: 09/10/23 10:18 09/10/23 10:18 Labs: Abnormal Lab Results - Last 24 Hours (Table) 09/09/23 09/09/23 09/09/23 Range/Units 08:57 08:57 11:30 RBC 3.26 L (3.80-5.40) m/uL Hgb 9.8 L D (11.4-16.0) gm/dL Hct 30.8 L (34.0-46.0) % RDW 18.5 H (11.5-15.5) % Lymphocytes # 0.6 L (1.0-4.8) k/uL BUN 32 H (7-17) mg/dL Creatinine 1.53 H (0.52-1.04) mg/dL POC Glucose (mg/dL) 143 H (70-110) mg/dL Calcium 8.3 L (8.4-10.2) mg/dL
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
--- NOTE | 2023-09-11 11:24 | P.PN ---
Subjective Progress Note Date: 09/11/23 Principal diagnosis: Respiratory failure. Pulmonary consult dated August 23, 2023. This is a 57-year-old female who was admitted back on August 18, for a right heel wound. Early this morning, the patient had a cardiopulmonary arrest. The patient apparently was initially found to be bradycardic, and then had asystole. She received 3 rounds of epinephrine. She arrived to the intensive care unit this morning at 630, having been intubated on the floor by anesthesia. In the I CU, the patient had an episode of pulseless electrical activity, and asystole, and received 2 rounds of epinephrine, a dose of atropine, and some sodium bicarbonate. I came into the intensive care unit this morning, early, to place a left internal jugular triple-lumen catheter, and a right femoral arterial line. Currently, the patient is on volume assist-control, rate 16, tidal volume 400, FiO2 50%, PEEP of 5. The most recent blood gases show pO2 of 75, pCO2 49, pH is 7.44. Arterial blood gases shortly after intubation showed a pO2 of 268, pCO2 of 38, and a pH of 7.25. The patient is currently on norepinephrine at 1.4 mcg/min, and saline at 50 cc an hour. Current labs include a white count 13.8, hemoglobin 9.5, hematocrit 31, and a platelet count of 257,000. PT was 12.9 with an INR of 1.2. Sodium 135, potassium 4.9, chlorides 111, CO2 19, anion gap 5, BUN 62, creatinine 2.76. The patient's AST is 468. ALT is 286. Albumin is 2.1. Urine, is suspicious for possible infection. Brain CT Today, Shows No Acute Intracranial Process. Chest x-ray shows bilateral patchy airspace d isease, right greater than left. Progress note dated August 24, 2023. The patient is seen today in the intensive care unit, room 255. The patient remains on the mechanical ventilator. Current settings include volume assist- control, rate 16, tidal volume 400, FiO2 50%, PEEP of 5. The tidal volume will be dropped down to 350, and the FiO2 will be dropped down to 40%, current blood gases show pO2 132, pCO2 34, pH is 7.37. The patient continues on 0.9 at 50 cc an hour, propofol at 20 mcg/kg/min, and vital 1.2 at 10 cc an hour, with a goal of 48. The patient is discovered to have gram-negative bacilli in the urine. She continues on Zosyn. White count 9, hemoglobin 9.6, hematocrit 30.1, p latelet count 242,000. Sodium 138, potassium 4.7, chloride 113, CO2 18, BUN 63, and creatinine 2.65. Anion gap is 7. The patient's AST is 199, ALT is 235. Troponin is 0.565. Albumin is 2.0. The gram-negative bacilli in the urine was discovered to be Escherichia coli. Chest x-ray shows an endotracheal tube that is too low in the trachea, and should be pulled back. In addition, there is evidence of underlying vascular congestion, and/or infiltrates. Progress note dated August 25, 2023. 57-year-old female seen again in room 255. The patient remains on mechanical ventilator. She is on volume assist-control, rate 16, tidal volume 350, FiO2 40%, PEEP of 5. Blood gases show a pO2 of 95, pCO2 of 39, pH is 7.31. The patient is getting propofol 35 mcg/kg/min, saline at 50 cc an hour, and dopamine at 2.5 mcg/kg/min. The patient continues on Zosyn for Escherichia coli. The patient did develop some bradycardia, overnight, which required her to be on dopamine. We are going to order some Dopplers of the lower extremities. In addition, we will do a daily interruption of sedation, and a spontaneous breathing trial. Count is 10.5, hemoglobin 10.3, hematocrit 32.7, platelet count 314,000. Sodium 140, potassium 4.8, chlorides 113, CO2 18, BUN 57, creatinine 2.49. Glucose is 142. Magnesium is 2.1, calcium is 7.0. The patient's urine specimen from August 21, revealed Escherichia coli. Dopplers of the lower extremities were negative. Chest x-ray shows some patchy bilateral in filtrates, more left-sided than right-sided. On today's evaluation of 08/26/2023, the patient is being seen for a follow-up. The patient is post cardiopulmonary arrest that occurred on 08/23/2023 and the patient return of spontaneous circulation. Subsequently, the patient was extubated on 08/25/2023. The patient is currently on 4 L of oxygen by nasal cannula. The patient remains encephalopathic. At times, restless in bed and somewhat agitated. Based on that, made recommendations to start the patient on Precedex at the low-dose to control her restlessness and agitation. She is also noted to have a right ankle fracture and a chronic nonhealing heel ulcer, stage [place]. She was also found to have an E. coli in her urine possibly underlying urine tract infection on 08/22/2023. On today's evaluation, the patient is on 40s of oxygen by nasal cannula. Chest x-ray showing cardiomegaly and the patient has a left subclavian triple-lumen catheter in place. Hemodynamically stable on no pressors. WBC count of 8.6 with a hemoglobin 8.5 and a platelet count of 217. BUN is 51 with a creatinine of 2.28 and a sodium level is at 141 and a bicarb level is at 17. The patient is moving all 4 extremities without any limitation. The patient is currently afebrile. Nephrology is on the case regarding MARYLOU which is probably secondary to ATN and has creatinine is being monitored. Fluid balance over the past 24 hours has been 250 cc positive and the patient shows no signs of any significant fluid overload. The patient is currently on IV Zosyn regarding the possibility of an aspiration/E. coli urinary tract infection and is stage III right heel wound. She remains on bronchodilators. She is on no pressors for now. No other significant events overnight. As mentioned, she was extubated yesterday and the chest x-ray shows distal stable left-sided pleural effusion. The echocardiogram that was done on 08/20/2023 showed a preserved left ventricular ejection fraction, no significant valvular abnormalities. The patient also had Doppler of the lower extremity on 08/25/2023 that revealed no evidence of any DVT. There was a prominent lymph node in the right groin measuring 2.6 cm in size. The patient did have a catheter in her right IJ at the time of admission that was removed and the cultures came back positive for corynebacterium. On today's evaluation of 08/27/2023, the patient is being seen for a follow-up. Patient is postcardiac arrest and the patient is having some signs of anoxic encephalopathy. She was restless and confused and somewhat agitated. Based on that, the patient was started on Precedex yesterday and Precedex is running at 0.4 mcg/kg/h. No significant agitation at this point in time. She seems to be calm and comfortable. She follows occasional simple commands. No agitation. No focal neurological deficits. She is currently on 2 L of oxygen nasal cannula and she is also on lactated Ringer at rate of 50 cc an hour. Urine output is in order of 30 cc an hour. Overall fluid balance has been +700 cc over the past 24 hours. The blood work shows a WC count of 8.2 with a hemoglobin 8.6 and a platelet count of 200, BUN is at 48 with a creatinine of 2.22 and a sodium level of 141. The serum bicarb level is at 18. A repeat limited echocardiogram was done yesterday and the patient showed improvement and in the LV function and the patient ejection fraction is in order of 55 to 60% without any significant segmental wall motion abnormalities. The patient is afebrile. The patient is hemodynamically stable at this point in time. Nephrology on the case regarding her chronic renal failure. On today's evaluation of 08/28/2023, the patient continues to require Precedex for increased agitation and restlessness. While off sedation, thrashes around. Currently she is calm and comfortable being on Precedex at 0.7 mcg/kg/h. She is on 3 L of oxygen by nasal cannula. No signs of any respiratory distress. No focal neurological deficits. She continues to complain of chest wall soreness and pain related to CPR and based on that the patient was given IV Tylenol and she is also Castana for pain control. WBC count is 7.1 with a hemoglobin of 8.7 and a platelet count of 214. BUN is at 50 with a creatinine of 2.45 and a sodium level of 140 with a potassium level of 5.1. She is afebrile. She is hemodynamically stable at this point in time. Progress note dated August 29, 2023. The patient is seen today in room 255, intensive care unit. The patient was extubated from mechanical ventilation on August 24. She continues on oxygen by nasal cannula at 2 L. She is getting saline at 50 cc an hour. She does continue on Zosyn. She also continues on dexmedetomidine at 0.4 mcg/kg/h, for ongoing restlessness and agitation. Current labs include a white count of 6, hemoglobin 8.4, hematocrit 27.4, and a normal platelet count. Sodium 144, pot assium 4.9, chlorides 117, CO2 18, BUN 54, creatinine 2.86. The patient's glucose was 103. Calcium is 7.6. Urine from August 21 with positive for Escherichia coli. Catheter tip, from August 22 with positive for Corynebacterium species. Reevaluated today on 09/04/2023, patient is about the same, remains in the ICU as an overflow, patient has intermittent episodes of agitation and restlessness, remains on Seroquel, remains on Ativan as needed, patient is requiring intermittent medications for sedation, she is not requiring any more Precedex. Patient has a bedside sitter, and she needs almost constant attention. Labs including CBC and basic metabolic profile are normal BUN however is 67 crea tinine 2.04 Reevaluated 09/05/2023, patient is about the same, continues to have intermittent episodes of agitation and restlessness, she is on D5W@50 mL/h she is also on Ativan 0 0.5 mg every 4 hours as needed intermittently receiving Lasix and she is on it now maintenance 40 mg IV push every 12 hours I cut it down to once a day. Continues to require sitter at bedside because of her intermittent episodes of agitations, today I added Risperdal 0.25 mg daily. WBC count is 6.5 hemoglobin 7.3 basic metabolic profile is normal BUN is 57 creatinine 1.89, improving Reevaluated on 09/06/2023, patient remains in the ICU, remains agitated intermittently, combative, when I evaluated the patient she was very calm and resting, sleeping, however apparently overnight the patient was extremely agitated and did not sleep much last night. Her Risperdal dose will be increased to 0.25 mg twice daily. The meantime patient is on many other medications to keep her calm and sedated. Patient has a sitter at bedside, does not seem to be in any distress labs today are unremarkable except hemoglobin of 7.6 basic metabolic profile is normal BUN is 52 creatinine 1.71 steadily improving over the last week Patient was reevaluated today on 09/07/2023, patient remains in the ICU, patient continues to have intermittent episodes of confusion, agitation, restlessness, does not seem to be in any respiratory distress, although her chest x-ray did show evidence of pulmonary edema and I recommended a dose of Lasix 40 mg IV push to be given now. Patient is on different types of medications to keep her calm, however does not seem to be helping, and now I am recommending a psychiatric consultation on this patient. WBC count is 6.0 hemoglobin 8.3 electrolytes are normal BUN is 40 creatinine 1.61, steadily improving. Patient is receiving Seroquel 150 twice daily she is also receiving Risperdal 0.25 twice daily, Ativan as needed but she is not requiring much Ativan. Patient is also on multiple cardiac meds. Patient was evaluated today on 09/08/2023, she is now out of the ICU, continues to have intermittent episodes of confusion and agitation, she has a sitter at bedside, today she seems to be [place]. Chest x-ray today showed evidence of worsening pulmonary edema although clinically the patient seems to be doing fine, hence I recommended increasing her Lasix up to 40 mg IV push twice daily. Patient is yet to be seen by psychiatry on consultation. WBC count is 3.4 hemoglobin 7.3 basic metabolic profile is normal BUN is 38 creatinine 1.54. Chest x-ray as noted earlier. Progress note dated September 09, 2023. The patient is seen today in room 356. She is currently on 4 L of oxygen. She is receiving Zosyn. The patient has episodes of confusion and agitation, and has had a sitter at the bedside, for quite some time. Currently, speech pathology is in the room with the patient, evaluating her ability to properly take food by mouth. Laboratory data includes a white count 4.7, hemoglobin 9.8, hematocrit 30.8, and a platelet count of 227,000. Sodium 143, potassium 3.5, chlorides 106, CO2 30, BUN 32, creatinine 1.53. Glucose is 143. Calcium is 8.3. Previous culture data shows urine positive for E. coli, August 21, and a catheter tip with corynebacterium species, from August 22. Chest x-ray from today shows some cardiomegaly, and mild pulmonary vascular congestion. Progress note dated September 10, 2023. The patient is seen today in room 356. She is currently on oxygen at 4 L. She is getting D5W at 50 cc an hour. The patient is much less agitated today. Still has a sitter. Current labs include a white count of 6, hemoglobin 9.5, hematocrit 31.4, and a normal platelet count. Sodium 140, potassium 3.7, chlorides 104, CO2 32, BUN 27, and creatinine 1.42. Glucose is 177. Calcium is 8.1. The patient's urine had evidence of Escherichia coli. The patient also had a catheter tip that was positive for Corynebacterium species. The patient's currently on Zosyn still. Progress note dated September 11, 2023. The patient was seen again in room 356. Currently, she is on 5 L of oxygen. She is getting D5W at 50 cc an hour. She is currently not on any antibiotic. She seems less agitated and restless today. Current labs include a glucose of 137. The patient denies any shortness of breath, coughing, wheezing, chest tightness, or phlegm production. She also denies any chest pain or pressure, palpitations, or fluttering in the chest. She denies any nausea, vomiting, vashti rrhea, or abdominal pain. Objective - Vital Signs Vital signs: Vital Signs Temp 97.7 F 09/11/23 08:09 Pulse 83 09/11/23 08:09 Resp 18 09/11/23 08:09 BP 159/75 09/11/23 08:09 Pulse Ox 91 L 09/11/23 08:09 FiO2 3 09/02/23 04:00 Intake & Output 09/10/23 09/11/23 09/11/23 18:59 06:59 18:59 Intake Total 660 Output Total 1325 875 Balance -665 -875 Weight 63.9 kg 57.5 kg Intake: Oral 660 Output: Urine 1325 575 Post Void Residual 300 Other: Voiding Method Indwelling Catheter Bedpan Bedpan # Voids 1 # Bowel Movements 1 ABP, PAP, CO, CI - Last Documented Arterial Blood Pressure 125/73 - Exam No acute distress, currently on nasal O2 at 5 L. HEENT examination is grossly unremarkable. Neck supple. Full range of motion. No adenopathy thyromegaly or neck vein distention. Cardiovascular examination reveals regular rhythm rate. S1-S2 normal. No S3 or S4. No discernible murmur noted. Heart sounds are distant. Heart rate 83 bpm. Lungs reveal scattered bilateral rhonchi. No wheezes or crackles. Breath sounds equal bilaterally. Saturation is 94 %. Abdomen soft with bowel sounds. Extremities are intact. No cyanosis clubbing or edema. Skin is without rash or lesion. Neurologic examination is difficult to assess. Patient with intermittent episodes of agitation and confusion. - Labs CBC & Chem 7: 09/10/23 10:18 09/10/23 10:18 Labs: Abnormal Lab Results - Last 24 Hours (Table) 09/10/23 09/10/23 09/10/23 Range/Units 10:18 10:18 11:20 RBC 3.31 L (3.80-5.40) m/uL Hgb 9.5 L (11.4-16.0) gm/dL Hct 31.4 L (34.0-46.0) % MCHC 30.3 L (31.0-37.0) g/dL RDW 18.2 H (11.5-15.5) % Lymphocytes # 0.6 L (1.0-4.8) k/uL PT (10.0-12.5) sec INR (<1.2) Carbon Dioxide 32 H (22-30) mmol/L BUN 27 H (7-17) mg/dL Creatinine 1.42 H (0.52-1.04) mg/dL Glucose 106 H (74-99) mg/dL POC Glucose (mg/dL) 177 H (70-110) mg/dL Calcium 8.1 L (8.4-10.2) mg/dL 09/10/23 09/10/23 09/10/23 Range/Units 13:40 16:29 20:36 RBC (3.80-5.40) m/uL Hgb (11.4-16.0) gm/dL Hct (34.0-46.0) % MCHC (31.0-37.0) g/dL RDW (11.5-15.5) % Lymphocytes # (1.0-4.8) k/uL PT 13.6 H (10.0-12.5) sec INR 1.3 H (<1.2) Carbon Dioxide (22-30) mmol/L BUN (7-17) mg/dL Creatinine (0.52-1.04) mg/dL Glucose (74-99) mg/dL POC Glucose (mg/dL) 230 H 203 H (70-110) mg/dL Calcium (8.4-10.2) mg/dL 09/11/23 Range/Units 06:07 RBC (3.80-5.40) m/uL Hgb (11.4-16.0) gm/dL Hct (34.0-46.0) % MCHC (31.0-37.0) g/dL RDW (11.5-15.5) % Lymphocytes # (1.0-4.8) k/uL PT (10.0-12.5) sec INR (<1.2) Carbon Dioxide (22-30) mmol/L BUN (7-17) mg/dL Creatinine (0.52-1.04) mg/dL Glucose (74-99) mg/dL POC Glucose (mg/dL) 137 H (70-110) mg/dL Calcium (8.4-10.2) mg/dL Assessment and Plan Assessment: Cardiopulmonary arrest, x 2, with cardiopulmonary resuscitation, and return of spontaneous circulation on 08/23/23, echocardiogram shows a preserved LV function. No significant valvular abnormalities at this point in time. Cardiac rhythm is sinus. Acute hypoxic respiratory failure, postcardiac arrest, intubated and subsequently extubated on 08/25/2023 currently on 4 L of O2 nasal cannula. S/P intubation, and mechanical ventilation, secondary to cardiopulmonary arrest, August 23, 2023. She was extubated on 08/25/23. Encephalopathy with possibility of an underlying hypoxic encephalopathy postcardiac arrest, CAT scan of the brain that was done showed no evidence of any acute abnormalities. She seems to be calm and comfortable and there is no focal neurological deficit on today's evaluation. She is moving all 4 extremities without any limitation. History of congestive heart failure. Echocardiogram from this current admission shows a preserved LV function. Coronary artery disease cardiomyopathy and the patient is post non-ST segment elevation myocardial infarction. Cardiac catheterization was done on 06/24/2023 and the patient had successful stenting of the proximal RCA with reduction of the stenosis from 70% to 0%. Troponin peaked at 1. Stage III chronic kidney disease, creatinine is stable for now, the patient required hemodialysis during earlier hospitalization and the last hemodialysis was on 07/02/2023. The patient has not received hemodialysis since then. Dialysis catheter was removed and the catheter was positive for corynebacterium. Right heel pressure ulcer, stage III. Subacute fracture of the medial and lateral malleolus. History of hypertension. History of hyperlipidemia. History of type 2 diabetes mellitus. History of severe pulmonary hypertension. History of COPD. History of peripheral neuropathy. Chest wall pain related to CPR. Plan: Plan dated August 23, 2023. The patient is seen in the intensive care unit, room 255. I came in early this morning to place an arterial line, and the internal jugular triple-lumen catheter. The patient had poor IV access. The patient is currently on norepinephrine at 1.4 mcg/min. He is getting saline at [address] scan of the brain, was negative. The patient blood gases show pO2 of 75, pCO2 of 49, pH of 7.44. We will continue to follow make recommendations along the way. The patient's overall prognosis remains very guarded. The patient continues on ceftriaxone, and fluconazole. Prognosis is guarded. Plan dated August 24, 2023. The patient is seen today in room 255. She remains on mechanical ventilator. The urine is showing evidence of Escherichia coli. The patient continues on Zosyn. The patient's EEG shows slowing, consistent with severe encephalopathy. There was no evidence of any seizure activity. Labs, x-rays, and all medications are reviewed. We will continue to follow the patient, make recommendations along the way. The patient's overall prognosis remains very guarded. Today we make some ventilator changes, including dropping the tidal volume down from 400, down to 350, and the FiO2, being reduced to 40%, for 50%. Plan dated August 25, 2023. The patient is seen today in room 255. She remains on the mechanical ventilator. Today, we will do a daily interruption of sedation, and a spontaneous breathing trial. Dopplers of the lower extremities were negative. She remains on Zosyn for Escherichia coli urinary tract infection. Overnight she developed bradycardia. For that she was started on dopamine by cardiology. The patient is getting saline at 50 cc an hour, propofol at 35 mcg/kg/min. Blood gases are reasonable. Will place the patient on PSV 5, CPAP 5, get some weaning parameters, and see if we can extubate the patient. We will continue to follow. Labs, x-rays, and medications are reviewed. Prognosis is guarded. Plan dated August 29, 2023. The patient will continue with dexmedetomidine, and hopefully, it will be gradually weaned off. The patient was started on Seroquel, 100 mg twice a day. The patient is currently hemodynamically stable, with no need for vasopressors. Cardiac rhythm is also stable. A repeat echocardiogram has been ordered. The patient is on Castana for pain control. Also, the patient continues on Zosyn. Other medications include Lipitor, Norvasc, and Imdur, as well as subcutaneous heparin for DVT prophylaxis. We will continue to monitor, in the intensive care unit. Prognosis is certainly very guarded. Neurologic status is of a concern. Appreciate input by neurology. Plan dated September 09, 2023. The patient is seen today in room 356. The patient continues on Zosyn. The patient is on 4 L of oxygen. There is a sitter at the bedside. She continues on appropriate medications including Risperdal and Seroquel. In addition, the patient continues on GI prophylaxis, and DVT prophylaxis. Though Zosyn is primarily for the cellulitis. We will continue to follow make recommendations along the way. Prognosis is guarded. She does have intermittent episodes of confusion agitation, and yelling out. Plan dated September 10, 2023. The patient is seen today in room 356. The patient still has a sitter. The patient is currently on 4 L. She continues on Zosyn. She is getting D5W at 50 cc an hour. Labs, x-rays, and medications are reviewed. She continues on appropriate medications. We will continue to follow make recommendations along the way. Prognosis is guarded. She is a bit more alert, and less agitated to day. Plan dated September 11, 2023. The patient is no longer on antibiotics. She is on oxygen, between 4 to 5 L by nasal cannula. She is getting D5W at 50 cc an hour. No new labs today. She is apparently doing better, and less agitated, less confusion. We will continue to follow. Prognosis is guarded. Labs, x-rays, and all medications are reviewed. Time with Patient: Less than 30
[2023-09-11 11:35] LABS: Glucose,Whole Blood 209 mg/dL (70-110)
[2023-09-11 16:41] LABS: Glucose,Whole Blood 104 mg/dL (70-110)
[2023-09-11] MEDS: HYDROcodone/APAP 5-325MG 1 EACH TAB PO PRN (17:15)
--- NOTE | 2023-09-11 18:47 | P.PN ---
Subjective Patient is seen for follow-up for acute kidney injury. She is confused but mentation appears to be slightly better. Renal function has improved with creatinine staying at about 1.5 mg/dL. Objective - Vital Signs Vital signs: Vital Signs Temp 97.7 F 09/11/23 08:09 Pulse 85 09/11/23 17:17 Resp 16 09/11/23 17:17 BP 150/79 09/11/23 17:17 Pulse Ox 92 L 09/11/23 17:17 FiO2 3 09/02/23 04:00 Intake & Output 09/10/23 09/11/23 09/11/23 18:59 06:59 18:59 Intake Total 660 Output Total 1325 875 Balance -665 -875 Weight 63.9 kg 57.5 kg Intake: Oral 660 Output: Urine 1325 575 Post Void Residual 300 Other: Voiding Method Indwelling Catheter Bedpan Bedpan # Voids 1 1 # Bowel Movements 1 ABP, PAP, CO, CI - Last Documented Arterial Blood Pressure 125/73 - Exam Patient is awake. She is comfortable. Confused Examination of the heart S1 and S2 Examination of the lungs bilateral breath sounds are heard Abdomen is soft nontender Examination of lower extremities shows trace edema - Labs CBC & Chem 7: 09/10/23 10:18 09/10/23 10:18 Labs: Abnormal Lab Results - Last 24 Hours (Table) 09/10/23 09/11/23 09/11/23 Range/Units 20:36 06:07 11:34 POC Glucose (mg/dL) 203 H 137 H 209 H (70-110) mg/dL Assessment and Plan Assessment: 1. Acute kidney injury secondary to ATN secondary to cardiorenal syndrome and cardiac arrest. Creatinine stable at 1.5. Patient was on hemodialysis in the past with last treatment being July 02, 2023. Dialysis catheter it is now removed. Renal US no hydronephrosis. 2. Volume overload. Improved with diuresis. 3. Acute on chronic diastolic CHF. 4. Diabetes mellitus. 5. Right foot wound. 6. Coronary disease with cardiac stenting. 7. Status post PEA arrest with concern for anoxic encephalopathy. 8. Septic Shock-urine culture is growing E. coli. Catheter tip culture is growing corynebacterium, blood culture negative so far. 9. Metabolic acidosis, nongap, improved 10. Hypernatremia, status post D5W, improved Plan: continue with IV Lasix May continue with D5W for 1 more day Repeat labs in a.m.
[2023-09-11 20:23] LABS: Glucose,Whole Blood 221 mg/dL (70-110)
[2023-09-12] MEDS: LORazepam 1 MG/0.5 ML VIAL IV PRN (00:29)
[2023-09-12] MEDS: HALOPERIDOL LACTATE 5 MG/ML 1 ML VIAL IM STA (04:06)
--- NOTE | 2023-09-12 04:31 | P.PN ---
Subjective Progress Note Date: 09/11/23 57-year-old female came in with complaints of shortness of breath and orthopnea found to be in congestive heart failure exacerbation patient has congestive heart failure with reduced ejection fraction in the past patient has increasing pedal edema. Patient also has an ulcer in the right foot stage III-IV which appeared to be infected we will consult wound care and infectious disease. Patient was on hemodialysis during last hospitalization her creatinine presently is 1.5 which is significantly improved patient potassium is 5.5, patient is on Entresto and Aldactone Aldactone will be held Entresto will be continued since she is receiving IV Lasix and expecting her potassium to improve if it does not improve or get worse then Entresto need to be discontinued as well. Patient has hypervolemic hyponatremia and hyperglycemia. 08/21/2023 Was evaluated today on the medical floor. Patient was continued on IV Lasix overnight however she was no longer reporting any shortness of breath and her lower extremity edema has improved. She was taken off of the Lasix at this time due to increased creatinine up to 2.31 additionally potassium remains elevated at 5.7. Echocardiogram comes back showing an improved ejection fraction of 60 to 65% because of this and also the hyperkalemia patient will not be continued on entresto. Patient was evaluated by infectious disease who felt like that heel ulcer on the right side was more likely a pressure injury stage III and is recommending local wound care to continue with Aquacel. Patient is reporting significant pain to the right foot and feels like it is fractured. Upon review of the patient's chart she did have a x-ray completed of this 12 days ago ordered by her cost reduction engineer Dr. Mayen. Ankle x-ray did review a mildly displaced acute distal fibular fracture. Repeat x-ray of the foot and ankle completed today does reveal a subacute fractures of the medial and lateral malleolus. The lateral malleolus fracture was seen on the patient's prior exam the medial malleolus fracture may be new in the interval and this would be considered an unstable ankle fracture. There is interval 6 mm displacement of the lateral malleolus. There is a deep soft tissue ulcer at the plantar heel with no clear radiographic findings of a contagious osteomyelitis at this time. Orthooedics was consulted for this. 08/22/2023 Patient evaluated in follow-up today resting in bed. She was taken off of the Lasix remains off at this time. Bladder scan was requested and not done yesterday to rule out urinary retention, creatinine today is increased up to 2.56. Bladder scan was done require urinary straight catheterization of 550 mL taken out. Urinalysis was sent which is significantly abnormal. Patient is also noted to have multiple genital lesions which appear wartlike she admits to not having any routine gynecological screenings for many years. She is not having any vaginal bleeding or discharge. Renal ultrasound has been ordered to rule out any obstructive uropathy. 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 Patient upon arrival to the intensive care unit had another episode of cardiac arrest patient had bradycardia while on pressors in the ICU patient was intubated following the first cardiac arrest and is currently on the mechanical ventilator 50% FiO2. Chest x-ray showing similar interstitial and patchy component airspace disease right greater than left. There is a possible trace left pleural effusion. A brain CT which shows no acute intracranial process. Blood work today shows a white blood cell count of 13.8, hemoglobin 9.5, sodium level of 135, BUN of 62, creatinine of 2.76. AST ALT and alk phosphatase are significantly elevated consistent with a shock liver. TSH 3.310. Urinalysis is abnormal. Her urine culture is showing gram-negative bacilli patient is covered for the urinary tract infection as well as aspiration with IV Zosyn being managed by infectious disease. Patient is currently sedated with propofol and did require vasopressor support with Levophed which has been weaned at this time. Will discontinue the gabapentin patient is continued on aspirin Plavix and statin has been placed on hold. There is concern for possible arrhythmia precipitating the asystole additionally we need to rule out embolism and a D-dimer has been ordered. 08/24/2023 Patient is seen in follow-up today continues in the ICU on mechanical ventilation. FiO2 is 50% although titrating and was just placed at 40% with a PEEP of 5. Chest x-ray today shows that the ET tube is 7 mm from the sonam suggesting a pulled back 2 cm and reassess and also suspected underlying vascular congestion. Neuro is following and per nursing staff patient is following some simple commands and undergoing sedation holidays. Patient noted to have reduced EF of 30 to 35% and cardiology had been following. Will reconsult and appreciate input and recommendations. patient did have dialysis catheter removed and sent for cultures which are pending. Infectious disease following and patient is maintained on antibiotic. D-dimer is elevated above 16 and will attempt to obtain a VQ scan.57-year-old female came in with complaints of shortness of breath and orthopnea found to be in congestive heart failure exacerbation patient has congestive heart failure with reduced ejection fraction in the past patient has increasing pedal edema. Patient also has an ulcer in the right foot stage III-IV which appeared to be infected we will consult wound care and infectious disease. Patient was on hemodialysis during last hospitalization her creatinine presently is 1.5 which is significantly improved patient potassium is 5.5, patient is on Entresto and Aldactone Aldactone will be held Entresto will be continued since she is receiving IV Lasix and expecting her potassium to improve if it does not improve or get worse then Entresto need to be discontinued as well. Patient has hypervolemic hyponatremia and hyperglycemia. 08/21/2023 Was evaluated today on the medical floor. Patient was continued on IV Lasix overnight however she was no longer reporting any shortness of breath and her lower extremity edema has improved. She was taken off of the Lasix at this time due to increased creatinine up to 2.31 additionally potassium remains elevated at 5.7. Echocardiogram comes back showing an improved ejection fraction of 60 to 65% because of this and also the hyperkalemia patient will not be continued on entresto. Patient was evaluated by infectious disease who felt like that heel ulcer on the right side was more likely a pressure injury stage III and is recommending local wound care to continue with Aquacel. Patient is reporting significant pain to the right foot and feels like it is fractured. Upon review of the patient's chart she did have a x-ray completed of this 12 days ago ordered by her cost reduction engineer Dr. Mayen. Ankle x-ray did review a mildly displaced acute distal fibular fracture. Repeat x-ray of the foot and ankle completed today does reveal a subacute fractures of the medial and lateral malleolus. The lateral malleolus fracture was seen on the patient's prior exam the medial malleolus fracture may be new in the interval and this would be considered an unstable ankle fracture. There is interval 6 mm displacement of the lateral malleolus. There is a deep soft tissue ulcer at the plantar heel with no clear radiographic findings of a contagious osteomyelitis at this time. Orthooedics was consulted for this. 08/22/2023 Patient evaluated in follow-up today resting in bed. She was taken off of the Lasix remains off at this time. Bladder scan was requested and not done yesterday to rule out urinary retention, creatinine today is increased up to 2.56. Bladder scan was done require urinary straight catheterization of 550 mL taken out. Urinalysis was sent which is significantly abnormal. Patient is also noted to have multiple genital lesions which appear wartlike she admits to not having any routine gynecological screenings for many years. She is not having any vaginal bleeding or discharge. Renal ultrasound has been ordered to rule out any obstructive uropathy. 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 Patient upon arrival to the intensive care unit had another episode of cardiac arrest patient had bradycardia while on pressors in the ICU patient was intubated following the first cardiac arrest and is currently on the mechanical ventilator 50% FiO2. Chest x-ray showing similar interstitial and patchy component airspace disease right greater than left. There is a possible trace left pleural effusion. A brain CT which shows no acute intracranial process. Blood work today shows a white blood cell count of 13.8, hemoglobin 9.5, sodium level of 135, BUN of 62, creatinine of 2.76. AST ALT and alk phosphatase are significantly elevated consistent with a shock liver. TSH 3.310. Urinalysis is abnormal. Her urine culture is showing gram-negative bacilli patient is covered for the urinary tract infection as well as aspiration with IV Zosyn being managed by infectious disease. Patient is currently sedated with propofol and did require vasopressor support with Levophed which has been weaned at this time. Will discontinue the gabapentin patient is continued on aspirin Plavix and statin has been placed on hold. There is concern for possible arrhythmia precipitating the asystole additionally we need to rule out embolism and a D-dimer has been ordered. 08/24/2023 Patient is seen in follow-up today continues in the ICU on mechanical ventil ation. FiO2 is 50% although titrating and was just placed at 40% with a PEEP of 5. Chest x-ray today shows that the ET tube is 7 mm from the snoam suggesting a pulled back 2 cm and reassess and also suspected underlying vascular congestion. Neuro is following and per nursing staff patient is following some simple commands and undergoing sedation holidays. Patient noted to have reduced EF of 30 to 35% and cardiology had been following. Will reconsult and appreciate input and recommendations. patient did have dialysis catheter removed and sent for cultures which are pending. Infectious disease following and patient is maintained on antibiotic. D-dimer is elevated above 16 and will atte mpt to obtain a VQ scan. 08/25/23 : Patient seen and evaluated at bedside, patient extubated around noon, transition to 5 L of oxygen to nasal cannula. Family at bedside, blood work reviewed hemoglobin 10.3, serum chemistry reviewed sodium 140 potassium 4.8 BUN 57 creatinine 2.49 calcium of 7. 08/26/23 : Patient seen and evaluated at bedside, patient remains in medical ICU, does complain of chest pain from CPR. Patient has been weaned off dopamine, cardiology following, blood work reviewed, hemoglobin 8.5 platelet count of 217, serum chemistry shows sodium 141 BUN 51 creatinine 2.28. Followed up by nephrology as well MARYLOU secondary to ATN continue to monitor intake and output 08/27/23: Patient seen and evaluated bedside, on evaluation patient is disoriented, patient is drowsy however likely having acute delirium. Seen by cardiology echocardiogram shows preserved ejection fraction continue with current medical management, patient on Precedex for acute delirium, continue to remain on oxygen supplementation with nasal cannula blood work reviewed CBC showed WBC 8.2 hemoglobin 8.6 serum chemistry showed creatinine of 2.22. Patient remains delirious, daughter at bedside all questions answered 08/28/2023 Patient was agitated earlier requiring Seroquel and Placed on Precedex because she was has risk to self and others Currently when I saw the patient she was sleepy However she is not tachypneic show does not look in pain. Vitals are stable She is saturating 91% on 2 L oxygen via nasal cannula She remains on Zosyn for pneumonia and UTI She is on normal saline at 50 mL/h 08/29/2023 Patient remains sleepy, she still has some encephalopathy But she is on Precedex which will be tapered off by pulmonary team today to assess her mentation as well. Patient has been followed by neurology for suspected anoxic brain injury after her cardiac arrest and return of circulation on 08/22. There is no evidence of seizure-like activity She has catheter tip infection with culture growing Corynebacterium species and she is currently covered with Zosyn which also help for her right heel pressure ulcer and aspiration pneumonia and UTI. Cardiology evaluated the patient and there is no clear evidence for her cardiac arrest although she has history of coronary artery disease and previous stents. Currently with no chest pain. She remains on aspirin and Plavix, gentle hydration, IV steroids 08/30/2023 Today her sedation remains off however patient mentation not completely resolved, it is somewhat better as she was more sleepy yesterday She is eating okay, swallowing is fine She was started on IV Lasix twice daily per injection press operator. She has good urine output and normal send discontinued She is hemodynamically stable and oxygenation is acceptable Remains on aspirin and Plavix and Seroquel 08/31/23: Seen and evaluated at bedside, patient remains on 4 L of oxygen, blood work reviewed, WBC 7.3 hemoglobin 9.1 platelet count of 203 glucose 119. CBC reviewed showed WBC 7.3 hemoglobin 9.1 platelet count of 203.. Neurology consulted and following. Patient is awake and alert able to answer questions and follow commands sister at bedside all questions answered 09/01/23: Seen and evaluated at bedside, patient vitals reviewed, serum chemistry reviewed sodium 145 potassium 4.6 creatinine 2.71, CBC reviewed patient remains on IV Zosyn , appreciate input from nephrology continue patient on IV Lasix, delirium persist 09/02/23: Patient seen and evaluated bedside, patient been admitted for cardiopulmonary arrest, respiratory failure s/p extubation on nasal cannula however continues to remain delirious. Blood work reviewed hemoglobin 8.8, platelet count 226, serum chemistry reviewed creatinine 2.55 potassium 4.5. MRI brain has been ordered which is pending, patient remains disoriented 09/03/2023 Patient is seen in follow-up status post recent extubation maintained on a few liters of pulmonary technical service engineer following closely. Cardiology following as well and adjusted medications recommending continuing with current medication regimen. No change in mentation as patient continues with periods of confusion and restlessness. Medications being adjusted and Ativan as needed has been added. Continue Seroquel. Patient will answer questions appropriately and discuss her health history and can recall her doctors names but will ramble on regarding something irrelevant during conversation. Patient is redirectable. Patient continues with partial cast noted on the lower extremity. Patient continues on IV Lasix and kidney functions are improving nephrology following closely. Plan is for patient to possibly move out of the ICU. Will have PT/OT therapy evaluate the patient and discuss further with consultations along with case management regarding possible ECF versus discharge planning. 09/04/2023 Patient seen in follow-up today and continues to have periods of confusion and restlessness. Patient continues in the ICU with multiple medical consultations following. Hemoglobin was found to be less than 7 today and will transfuse 1 unit of PRBC. Sodium 147 and recommend repeat labs as well. Nephrology is following and patient is continued on IV Lasix. MRI of the brain remains pending and neurology is following. 09/05/2023 Patient is seen and evaluated today continues to be in the ICU needs continuous reinforcement on keeping oxygen on. Patient does have a clinical safety specialist at the bedside. Patient is currently resting although remains confused and anxious and agitated at times. Hemoglobin is stable above 7 status post 1 unit of PRBC. Patient continues on IV Lasix daily and nephrology following closely. Patient to continue on IV antibiotics with infectious disease following. 09/06/2023 Patient seen in follow-up today continues to be sleepy at this time although when awake patient is extremely restless and agitated requiring sitter at the bedside. Adjustments to medications being made and Risperdal is being increased and will continue with Seroquel. Ativan as needed. Patient's hemoglobin is stable with no active bleeding noted. Neurology following as patient continues to be unable to obtain an MRI and will have a repeat EEG as well as CT brain per neurology. Patient is afebrile and is continued on antibiotics with infectious disease following. 09/09/2023 Patient seen in follow-up today has been transitioned out of the ICU and curren tly on selective unit and continues with clinical safety specialist at the bedside. Patient is keeping her oxygen on currently and is on 4 L. Multiple medical consultations following and per nursing staff patient was able to get up and work with physical therapy today. Plan is for ECF when patient's mentation is improved. Patient continues on IV Lasix twice daily as well with nephrology following. Continue Ativan as needed and patient is also maintained on Risperdal twice daily. Patient is afebrile with no reports of chest pain or shortness of breath. Hemoglobin is stable at 9.8 and white count is normal and kidney functions are improving. Continue monitoring Accu-Cheks before meals and at bedtime and will continue with sliding scale. Neurology following and patient is scheduled to undergo repeat brain CT today. Chest x-ray continues to show pulmonary vascular congestion. 09/10/2023 Patient is seen in follow-up today and mentation is much improved with family sitting at the bedside. Patient is able to have conversation and reports she is going home although patient has significant weakness and will be requiring ECF on discharge. Case management following awaiting for ECF evaluation and will require insurance authorization. Patient is afebrile and has been on IV antibiotics in the form of Zosyn with infectious disease following and white count remains normal and patient will be monitored off antibiotic therapy. Patient also continues on IV Lasix twice daily along with treatments and continued supplemental oxygen. Patient is on 4 L via nasal cannula. 09/11/2023 Patient is seen in follow-up this morning continues to display periods of confusion with increased agitation and restlessness. Per nursing staff patient had reports of hallucinating and seeing things crawling in the room that were not there. Patient is extremely anxious today although continues to be more mikaela ke. Patient reports is eating without much of an appetite. Patient has been compliant with working with physical therapy and will require ECF on discharge. Patient continues with clinical safety specialist as patient is impulsive and attempts to get up out of the bed impulsively. Will ask for psychiatry to reevaluate and adjust medications. Will discontinue Dilaudid as the hallucinations appeared shortly after receiving this medication. Patient does elicit pain in the right leg and foot. Review of systems: Constitutional: No reports of fatigue, fever, or chills, reports feeling anxious Cardiovascular: No reports of chest pain or palpitations Respiratory: No reports of shortness of breath or cough GI: No reports of nausea, vomiting, or diarrhea : No reports of dysuria or retention Neurovascular: reports of generalized weakness but improving and reports feels fine to go home All medications have been reviewed Active Medications Acetaminophen (Acetaminophen Tab 325 Mg Tab) 650 mg PO Q6HR PRN PRN Reason: Fever and/ or Pain Last Admin: 09/07/23 20:41 Dose: 650 mg Albuterol/Ipratropium (Ipratropium-Albuterol 3 Ml Neb) 3 ml INHALATION RT-QID PRN PRN Reason: Dyspnea Amlodipine Besylate (Amlodipine 5 Mg Tab) 5 mg PO DAILY [facility] Last Admin: 09/09/23 09:14 Dose: 5 mg Aspirin (Aspirin 81 Mg) 81 mg PO DAILY [facility] Last Admin: 09/09/23 09:13 Dose: 81 mg Atorvastatin Calcium (Atorvastatin 40 Mg Tab) 40 mg PO DAILY [facility] Last Admin: 09/09/23 09:14 Dose: 40 mg Clopidogrel Bisulfate (Clopidogrel 75 Mg Tab) 75 mg PO DAILY [facility] Last Admin: 09/09/23 09:14 Dose: 75 mg Darbepoetin Frantz (Darbepoetin Frantz 40 Mcg/0.4 Ml Syringe) 40 mcg SQ Q7D [facility] Last Admin: 09/06/23 11:45 Dose: 40 mcg Dextrose/Water (Dextrose 50% Syringe 50 Ml) 25 ml IVP PER PROTOCOL PRN; Protocol PRN Reason: Hypoglycemia Last Admin: 08/23/23 21:17 Dose: 25 ml Dextrose/Water (Dextrose 50% Syringe 50 Ml) 50 ml IVP PER PROTOCOL PRN; Protocol PRN Reason: Hypoglycemia Docusate Sodium (Docusate 100 Mg Cap) 100 mg PO BID [facility] Last Admin: 09/09/23 21:26 Dose: 100 mg Fluphenazine HCl (Fluphenazine 5 Mg Tab) 5 mg PO Q6HR PRN PRN Reason: Agitation Fluphenazine HCl (Fluphenazine 2.5 Mg/Ml (Mdv) 10 Ml Vial) 5 mg IM Q6HR PRN PRN Reason: Agitation Last Admin: 09/09/23 23:21 Dose: 5 mg Folic Acid (Folic Acid 1 Mg Tab) 1 mg PO DAILY [facility] Last Admin: 09/09/23 09:14 Dose: 1 mg Furosemide (Furosemide 10 Mg/Ml 4 Ml Vial) 40 mg IV Q12HR [facility] Last Admin: 09/09/23 21:26 Dose: 40 mg Heparin Sodium (Porcine) (Heparin Sodium,Porcine 5,000 Unit/Ml 1 Ml Vial) 5,000 unit SQ Q12HR [facility] Last Admin: 09/09/23 21:26 Dose: 5,000 unit Hydromorphone HCl (Hydromorphone 0.5 Mg/0.5 Ml Syringe) 0.5 mg IVP Q4HR PRN PRN Reason: Severe Pain (Scale 7 to 10) Last Admin: 09/10/23 00:13 Dose: 0.5 mg Piperacillin Sod/Tazobactam (Sod 3.375 gm/ Sodium Chloride) 100 mls @ 25 mls/hr IVPB Q12HR [facility]; Protocol Last Admin: 09/09/23 21:26 Dose: 25 mls/hr Dextrose/Water (Dextrose 5%-Water Iv Soln) 1,000 mls @ 50 mls/hr IV .Q20H [facility] Last Admin: 09/10/23 06:11 Dose: 50 mls/hr Insulin Aspart (Insulin Aspart (Novolog) 100 Unit/Ml Vial) 0 unit SQ ACHS [facility]; Protocol Last Admin: 09/10/23 06:11 Dose: Not Given Isosorbide Mononitrate (Isosorbide Mononitrate Er 30 Mg Tab.Er.24h) 30 mg PO DAILY [facility] Last Admin: 09/09/23 09:14 Dose: 30 mg Lidocaine (Lidocaine 4% Patch) 1 patch TOPICAL DAILY [facility]; Protocol Last Admin: 09/09/23 09:14 Dose: 1 patch Metoprolol Tartrate (Metoprolol Tartrate 12.5 Mg Tab) 12.5 mg PO BID [facility] Last Admin: 09/09/23 21:26 Dose: 12.5 mg Multivitamins (Multivitamins, Thera 1 Each Tab) 1 each PO DAILY [facility] Last Admin: 09/09/23 09:14 Dose: 1 each Oxymetazoline HCl (Oxymetazoline 0.05% Nasl [place] 1 [place] Bottle) 2 spray NASAL BID [facility] Pantoprazole Sodium (Pantoprazole 40 Mg/10 Ml Vial) 40 mg IVP DAILY [facility] Last Admin: 09/09/23 09:09 Dose: 40 mg Quetiapine Fumarate (Quetiapine 200 Mg Tab) 200 mg PO HS [facility] Last Admin: 09/09/23 21:26 Dose: 200 mg Ropinirole HCl (Ropinirole Hcl 1 Mg Tab) 1 mg PO HS PRN PRN Reason: restless legs Last Admin: 09/09/23 23:34 Dose: 1 mg Ropinirole HCl (Ropinirole Hcl 1 Mg Tab) 1 mg PO HS [facility] Last Admin: 09/09/23 21:26 Dose: 1 mg Thiamine HCl (Thiamine 100 Mg Tab) 100 mg PO DAILY [facility] Last Admin: 09/09/23 09:14 Dose: 100 mg PHYSICAL EXAMINATION: GENERAL: The patient is on nasal cannula, awake alert and oriented x 2, much more appropriate today, elderly appearing, unkept, ill-appearing HEENT: Pupils are round and equally reacting to light. EOMI. CARDIOVASCULAR: S1 and S2 muffled PULMONARY: Decreased breath sounds bilaterally with some scattered rhonchi noted ABDOMEN: Soft, nontender, nondistended, normoactive bowel sounds. No palpable organomegaly. MUSCULOSKELETAL: No joint swelling or deformity. EXTREMITIES: Right lower extremity bandage with partial cast noted NEUROLOGICAL: pupils reactive, less anxious although continues, cooperative, tearful SKIN: Patient has right plantar surface ulcer on the posterior foot stage III-IV with areas of necrotic tissue. Casting and Tam wrap noted of the right lower extremity Assessment: * Asystole/cardiopulmonary arrest x 2 with CPR/ROSC * Respiratory failure requiring intubation s/p extubation 08/25/2023 * Acute metabolic encephalopathy * Congestive heart failure with systolic dysfunction acute on chronic exacerbation * Acute hypoxic respiratory failure secondary to CHF * Ischemic cardiomyopathy with improved EF * Acute kidney injury secondary to ATN on chronic kidney disease stage III * Urinary tract infection with E. coli * Subacute fracture of the medial and lateral malleolus, orthopedics following * Right heel stage III pressure injury continue local wound care with aquacel ID following. * Genital lesions, will need director of kids follow up outpatient for routine screenings * Hypertension * Hyperlipidemia * Type 2 diabetes mellitus uncontrolled hgb a1c 12.1 * Severe pulmonary hypertension * COPD without any acute exacerbation * Peripheral neuropathy * Obesity with a body mass index of 30.8 * GI prophylaxis * DVT prophylaxis * Full code Plan: Patient being followed by multiple medical consultation and has been moved from the ICU to the stepdown unit and continues with clinical safety specialist. Wean FiO2 as tolerated and patient is maintained on 3 to 4 L via nasal cannula. Patient continues to remove oxygen tubing and oxygen saturations drop into the low 80s. Patient continues on IV Lasix twice daily and chest x-ray showing continued pulmonary vascular congestion, weaning FiO2 as tolerated Patient was able to work with PT/OT therapy again today and will await updated notes with case management following as plans are for patient to go to [facility]. Chart being reviewed and patient will also require insurance authorization. Patient will also need for sitter removed for at least 24 hours before [facility] considers accepting the patient. Mentation continues to wax and wane although patient is more awake today and able to respond and answer questions more appropriately. Per nursing staff patient had an episode of hallucinating reporting she was seeing things crawling that were not there, possibly medication effect as patient did receive Dilaudid. Will discontinue and ask psychiatry to reevaluate and adjust medications Continue clinical safety specialist at this time as patient is very impulsive and attempts to get out of the bed very frequently Hemoglobin is stable above 9 today with no active bleeding noted. Transfuse if [address] of the brain is negative for acute process. Neurology following Due to multiple complex medical issues, prognosis is guarded The impression and plan of care has been dictated by Mouna Rowley, Nurse Practitioner as directed. Dr. Wyatt MD I have performed a history and examination and MDM of this patient, discussed the same with the dictator, and agree with the dictator's assessment and plan as written ,documented as a scribe. Based on total visit time, I have performed more than 50% of the visit. Objective - Vital Signs Vital signs: Vital Signs Temp 97.7 F 09/11/23 08:09 Pulse 83 09/11/23 08:09 Resp 18 09/11/23 08:09 BP 159/75 09/11/23 08:09 Pulse Ox 91 L 09/11/23 08:09 FiO2 3 09/02/23 04:00 Intake & Output 09/10/23 09/11/23 09/11/23 18:59 06:59 18:59 Intake Total 660 Output Total 1325 875 Balance -665 -875 Weight 63.9 kg 57.5 kg Intake: Oral 660 Output: Urine 1325 575 Post Void Residual 300 Other: Voiding Method Indwelling Catheter Bedpan Bedpan # Voids 1 # Bowel Movements 1 ABP, PAP, CO, CI - Last Documented Arterial Blood Pressure 125/73 - Labs CBC & Chem 7: 09/10/23 10:18 09/10/23 10:18 Labs: Abnormal Lab Results - Last 24 Hours (Table) 09/10/23 09/10/23 09/10/23 Range/Units 10:18 10:18 11:20 RBC 3.31 L (3.80-5.40) m/uL Hgb 9.5 L (11.4-16.0) gm/dL Hct 31.4 L (34.0-46.0) % MCHC 30.3 L (31.0-37.0) g/dL RDW 18.2 H (11.5-15.5) % Lymphocytes # 0.6 L (1.0-4.8) k/uL PT (10.0-12.5) sec INR (<1.2) Carbon Dioxide 32 H (22-30) mmol/L BUN 27 H (7-17) mg/dL Creatinine 1.42 H (0.52-1.04) mg/dL Glucose 106 H (74-99) mg/dL POC Glucose (mg/dL) 177 H (70-110) mg/dL Calcium 8.1 L (8.4-10.2) mg/dL 09/10/23 09/10/23 09/10/23 Range/Units 13:40 16:29 20:36 RBC (3.80-5.40) m/uL Hgb (11.4-16.0) gm/dL Hct (34.0-46.0) % MCHC (31.0-37.0) g/dL RDW (11.5-15.5) % Lymphocytes # (1.0-4.8) k/uL PT 13.6 H (10.0-12.5) sec INR 1.3 H (<1.2) Carbon Dioxide (22-30) mmol/L BUN (7-17) mg/dL Creatinine (0.52-1.04) mg/dL Glucose (74-99) mg/dL POC Glucose (mg/dL) 230 H 203 H (70-110) mg/dL Calcium (8.4-10.2) mg/dL 09/11/23 Range/Units 06:07 RBC (3.80-5.40) m/uL Hgb (11.4-16.0) gm/dL Hct (34.0-46.0) % MCHC (31.0-37.0) g/dL RDW (11.5-15.5) % Lymphocytes # (1.0-4.8) k/uL PT (10.0-12.5) sec INR (<1.2) Carbon Dioxide (22-30) mmol/L BUN (7-17) mg/dL Creatinine (0.52-1.04) mg/dL Glucose (74-99) mg/dL POC Glucose (mg/dL) 137 H (70-110) mg/dL Calcium (8.4-10.2) mg/dL
[2023-09-12 04:37] LABS: ABG PCO2 49 mmHg (35-45); ABG PH 7.45 (7.35-7.45); Allen Test Performed? Yes
[2023-09-12 04:38] LABS: ABG Base Excess 8.4 mmol/L; ABG HCO3 34 mmol/L (21-25); ABG PO2 57 mmHg (83-108); ABG TCO2 35 mmol/L (19-24)
[2023-09-12 05:58] LABS: Glucose,Whole Blood 101 mg/dL (70-110)
[2023-09-12 09:58] LABS: Anisocytosis Slight; Basophils # (A) 0.1 k/uL (0-0.2); Basophils % (A) 1 %; Eosinophils # (A) 0.2 k/uL (0-0.7); Eosinophils % (A) 3 %; HCT 30.6 % (34.0-46.0); HGB 9.1 gm/dL (11.4-16.0); Hypochromasia Marked; Lymphocytes # (A) 0.5 k/uL (1.0-4.8); Lymphocytes % (A) 9 %; MCH 28.3 pg (25.0-35.0); MCHC 29.7 g/dL (31.0-37.0); MCV 95.3 fL (80.0-100.0); Mean Platelet Volume 8.6; Monocytes # (A) 0.3 k/uL (0-1.0); Monocytes % (A) 6 %; Neutrophils # (A) 4.1 k/uL (1.3-7.7); Neutrophils % (A) 77 %; Platelet Count 242 k/uL (150-450); Poikilocytosis Slight; RBC 3.21 m/uL (3.80-5.40); RDW 16.9 % (11.5-15.5); WBC 5.3 k/uL (3.8-10.6)
[2023-09-12 10:25] LABS: African American GFR (CKD) 33 (>60 ml/min/1.73 sqM); Anion Gap 5 mmol/L; Blood Urea Nitrogen 33 mg/dL (7-17); Calcium 7.7 mg/dL (8.4-10.2); Carbon Dioxide 33 mmol/L (22-30); Chloride 97 mmol/L (98-107); Glucose 129 mg/dL (74-99); Non-African American GFR(CKD) 29 (>60 ml/min/1.73 sqM); Potassium 3.9 mmol/L (3.5-5.1); Sodium 135 mmol/L (137-145)
--- NOTE | 2023-09-12 10:34 | P.PN ---
Subjective Patient is seen for follow-up for acute kidney injury. patient remains confused and requiring a sitter. Renal function has improved with creatinine staying at about 1.5 mg/dL. creatinine is 1.8 today. Patient is being diuresed. Volume status has much improved. Objective - Vital Signs Vital signs: Vital Signs Temp 97.8 F 09/12/23 08:03 Pulse 83 09/12/23 08:03 Resp 16 09/12/23 08:03 BP 174/94 09/12/23 08:03 Pulse Ox 98 09/12/23 08:03 FiO2 3 09/02/23 04:00 Intake & Output 09/11/23 09/12/23 09/12/23 18:59 06:59 18:59 Intake Total 200 Output Total 1120 Balance -920 Intake: Oral 200 Output: Urine 1120 Straight 820 Other: Voiding Method Bedpan Bedpan Bedpan # Voids 1 ABP, PAP, CO, CI - Last Documented Arterial Blood Pressure 125/73 - Exam Patient is awake. She is comfortable. Confused Examination of the heart S1 and S2 Examination of the lungs bilateral breath sounds are heard Abdomen is soft nontender Examination of lower extremities shows no edema. Right leg is in cast - Labs CBC & Chem 7: 09/12/23 09:23 09/12/23 09:23 Labs: Abnormal Lab Results - Last 24 Hours (Table) 09/11/23 09/11/23 09/12/23 Range/Units 11:34 20:20 04:18 RBC (3.80-5.40) m/uL Hgb (11.4-16.0) gm/dL Hct (34.0-46.0) % MCHC (31.0-37.0) g/dL RDW (11.5-15.5) % Lymphocytes # (1.0-4.8) k/uL ABG pCO2 49 H (35-45) mmHg ABG pO2 57 L* (83-108) mmHg ABG HCO3 34 H (21-25) mmol/L ABG Total CO2 35 H (19-24) mmol/L ABG O2 Saturation 91.0 L (94-97) % Sodium (137-145) mmol/L Chloride (98-107) mmol/L Carbon Dioxide (22-30) mmol/L BUN (7-17) mg/dL Creatinine (0.52-1.04) mg/dL Glucose (74-99) mg/dL POC Glucose (mg/dL) 209 H 221 H (70-110) mg/dL Calcium (8.4-10.2) mg/dL 09/12/23 09/12/23 Range/Units 09:23 09:23 RBC 3.21 L (3.80-5.40) m/uL Hgb 9.1 L (11.4-16.0) gm/dL Hct 30.6 L (34.0-46.0) % MCHC 29.7 L (31.0-37.0) g/dL RDW 16.9 H (11.5-15.5) % Lymphocytes # 0.5 L (1.0-4.8) k/uL ABG pCO2 (35-45) mmHg ABG pO2 (83-108) mmHg ABG HCO3 (21-25) mmol/L ABG Total CO2 (19-24) mmol/L ABG O2 Saturation (94-97) % Sodium 135 L (137-145) mmol/L Chloride 97 L (98-107) mmol/L Carbon Dioxide 33 H (22-30) mmol/L BUN 33 H (7-17) mg/dL Creatinine 1.88 H (0.52-1.04) mg/dL Glucose 129 H (74-99) mg/dL POC Glucose (mg/dL) (70-110) mg/dL Calcium 7.7 L (8.4-10.2) mg/dL Assessment and Plan Assessment: 1. Acute kidney injury secondary to ATN secondary to cardiorenal syndrome and cardiac arrest. Creatinine stable at 1.5. increase to 1.8 today. Lasix dose will be decreased. Patient was on hemodialysis in the past with last treatment being July 02, 2023. Dialysis catheter it is now removed. Renal US no hydronephrosis. 2. Volume overload. Improved with diuresis. 3. Acute on chronic diastolic CHF. 4. Diabetes mellitus. 5. Right foot wound. 6. Coronary disease with cardiac stenting. 7. Status post PEA arrest with concern for anoxic encephalopathy. 8. Septic Shock-urine culture is growing E. coli. Catheter tip culture is growing corynebacterium, blood culture negative so far. 9. Metabolic acidosis, nongap, improved 10. Hypernatremia, status post D5W, improved Plan: continue with IV Lasix, decrease dose to once a day DC D5W Repeat labs in a.m.
--- NOTE | 2023-09-12 10:50 | P.PN ---
Subjective Progress Note Date: 09/12/23 Principal diagnosis: Respiratory failure. Pulmonary consult dated August 23, 2023. This is a 57-year-old female who was admitted back on August 18, for a right heel wound. Early this morning, the patient had a cardiopulmonary arrest. The patient apparently was initially found to be bradycardic, and then had asystole. She received 3 rounds of epinephrine. She arrived to the intensive care unit this morning at 630, having been intubated on the floor by anesthesia. In the I CU, the patient had an episode of pulseless electrical activity, and asystole, and received 2 rounds of epinephrine, a dose of atropine, and some sodium bicarbonate. I came into the intensive care unit this morning, early, to place a left internal jugular triple-lumen catheter, and a right femoral arterial line. Currently, the patient is on volume assist-control, rate 16, tidal volume 400, FiO2 50%, PEEP of 5. The most recent blood gases show pO2 of 75, pCO2 49, pH is 7.44. Arterial blood gases shortly after intubation showed a pO2 of 268, pCO2 of 38, and a pH of 7.25. The patient is currently on norepinephrine at 1.4 mcg/min, and saline at 50 cc an hour. Current labs include a white count 13.8, hemoglobin 9.5, hematocrit 31, and a platelet count of 257,000. PT was 12.9 with an INR of 1.2. Sodium 135, potassium 4.9, chlorides 111, CO2 19, anion gap 5, BUN 62, creatinine 2.76. The patient's AST is 468. ALT is 286. Albumin is 2.1. Urine, is suspicious for possible infection. Brain CT Today, Shows No Acute Intracranial Process. Chest x-ray shows bilateral patchy airspace d isease, right greater than left. Progress note dated August 24, 2023. The patient is seen today in the intensive care unit, room 255. The patient remains on the mechanical ventilator. Current settings include volume assist- control, rate 16, tidal volume 400, FiO2 50%, PEEP of 5. The tidal volume will be dropped down to 350, and the FiO2 will be dropped down to 40%, current blood gases show pO2 132, pCO2 34, pH is 7.37. The patient continues on 0.9 at 50 cc an hour, propofol at 20 mcg/kg/min, and vital 1.2 at 10 cc an hour, with a goal of 48. The patient is discovered to have gram-negative bacilli in the urine. She continues on Zosyn. White count 9, hemoglobin 9.6, hematocrit 30.1, p latelet count 242,000. Sodium 138, potassium 4.7, chloride 113, CO2 18, BUN 63, and creatinine 2.65. Anion gap is 7. The patient's AST is 199, ALT is 235. Troponin is 0.565. Albumin is 2.0. The gram-negative bacilli in the urine was discovered to be Escherichia coli. Chest x-ray shows an endotracheal tube that is too low in the trachea, and should be pulled back. In addition, there is evidence of underlying vascular congestion, and/or infiltrates. Progress note dated August 25, 2023. 57-year-old female seen again in room 255. The patient remains on mechanical ventilator. She is on volume assist-control, rate 16, tidal volume 350, FiO2 40%, PEEP of 5. Blood gases show a pO2 of 95, pCO2 of 39, pH is 7.31. The patient is getting propofol 35 mcg/kg/min, saline at 50 cc an hour, and dopamine at 2.5 mcg/kg/min. The patient continues on Zosyn for Escherichia coli. The patient did develop some bradycardia, overnight, which required her to be on dopamine. We are going to order some Dopplers of the lower extremities. In addition, we will do a daily interruption of sedation, and a spontaneous breathing trial. Count is 10.5, hemoglobin 10.3, hematocrit 32.7, platelet count 314,000. Sodium 140, potassium 4.8, chlorides 113, CO2 18, BUN 57, creatinine 2.49. Glucose is 142. Magnesium is 2.1, calcium is 7.0. The patient's urine specimen from August 21, revealed Escherichia coli. Dopplers of the lower extremities were negative. Chest x-ray shows some patchy bilateral in filtrates, more left-sided than right-sided. On today's evaluation of 08/26/2023, the patient is being seen for a follow-up. The patient is post cardiopulmonary arrest that occurred on 08/23/2023 and the patient return of spontaneous circulation. Subsequently, the patient was extubated on 08/25/2023. The patient is currently on 4 L of oxygen by nasal cannula. The patient remains encephalopathic. At times, restless in bed and somewhat agitated. Based on that, made recommendations to start the patient on Precedex at the low-dose to control her restlessness and agitation. She is also noted to have a right ankle fracture and a chronic nonhealing heel ulcer, stage [place]. She was also found to have an E. coli in her urine possibly underlying urine tract infection on 08/22/2023. On today's evaluation, the patient is on 40s of oxygen by nasal cannula. Chest x-ray showing cardiomegaly and the patient has a left subclavian triple-lumen catheter in place. Hemodynamically stable on no pressors. WBC count of 8.6 with a hemoglobin 8.5 and a platelet count of 217. BUN is 51 with a creatinine of 2.28 and a sodium level is at 141 and a bicarb level is at 17. The patient is moving all 4 extremities without any limitation. The patient is currently afebrile. Nephrology is on the case regarding MARYLOU which is probably secondary to ATN and has creatinine is being monitored. Fluid balance over the past 24 hours has been 250 cc positive and the patient shows no signs of any significant fluid overload. The patient is currently on IV Zosyn regarding the possibility of an aspiration/E. coli urinary tract infection and is stage III right heel wound. She remains on bronchodilators. She is on no pressors for now. No other significant events overnight. As mentioned, she was extubated yesterday and the chest x-ray shows distal stable left-sided pleural effusion. The echocardiogram that was done on 08/20/2023 showed a preserved left ventricular ejection fraction, no significant valvular abnormalities. The patient also had Doppler of the lower extremity on 08/25/2023 that revealed no evidence of any DVT. There was a prominent lymph node in the right groin measuring 2.6 cm in size. The patient did have a catheter in her right IJ at the time of admission that was removed and the cultures came back positive for corynebacterium. On today's evaluation of 08/27/2023, the patient is being seen for a follow-up. Patient is postcardiac arrest and the patient is having some signs of anoxic encephalopathy. She was restless and confused and somewhat agitated. Based on that, the patient was started on Precedex yesterday and Precedex is running at 0.4 mcg/kg/h. No significant agitation at this point in time. She seems to be calm and comfortable. She follows occasional simple commands. No agitation. No focal neurological deficits. She is currently on 2 L of oxygen nasal cannula and she is also on lactated Ringer at rate of 50 cc an hour. Urine output is in order of 30 cc an hour. Overall fluid balance has been +700 cc over the past 24 hours. The blood work shows a WC count of 8.2 with a hemoglobin 8.6 and a platelet count of 200, BUN is at 48 with a creatinine of 2.22 and a sodium level of 141. The serum bicarb level is at 18. A repeat limited echocardiogram was done yesterday and the patient showed improvement and in the LV function and the patient ejection fraction is in order of 55 to 60% without any significant segmental wall motion abnormalities. The patient is afebrile. The patient is hemodynamically stable at this point in time. Nephrology on the case regarding her chronic renal failure. On today's evaluation of 08/28/2023, the patient continues to require Precedex for increased agitation and restlessness. While off sedation, thrashes around. Currently she is calm and comfortable being on Precedex at 0.7 mcg/kg/h. She is on 3 L of oxygen by nasal cannula. No signs of any respiratory distress. No focal neurological deficits. She continues to complain of chest wall soreness and pain related to CPR and based on that the patient was given IV Tylenol and she is also [place] for pain control. WBC count is 7.1 with a hemoglobin of 8.7 and a platelet count of 214. BUN is at 50 with a creatinine of 2.45 and a sodium level of 140 with a potassium level of 5.1. She is afebrile. She is hemodynamically stable at this point in time. Progress note dated August 29, 2023. The patient is seen today in room 255, intensive care unit. The patient was extubated from mechanical ventilation on August 24. She continues on oxygen by nasal cannula at 2 L. She is getting saline at 50 cc an hour. She does continue on Zosyn. She also continues on dexmedetomidine at 0.4 mcg/kg/h, for ongoing restlessness and agitation. Current labs include a white count of 6, hemoglobin 8.4, hematocrit 27.4, and a normal platelet count. Sodium 144, pot assium 4.9, chlorides 117, CO2 18, BUN 54, creatinine 2.86. The patient's glucose was 103. Calcium is 7.6. Urine from August 21 with positive for Escherichia coli. Catheter tip, from August 22 with positive for Corynebacterium species. Reevaluated today on 09/04/2023, patient is about the same, remains in the ICU as an overflow, patient has intermittent episodes of agitation and restlessness, remains on Seroquel, remains on Ativan as needed, patient is requiring intermittent medications for sedation, she is not requiring any more Precedex. Patient has a bedside sitter, and she needs almost constant attention. Labs including CBC and basic metabolic profile are normal BUN however is 67 crea tinine 2.04 Reevaluated 09/05/2023, patient is about the same, continues to have intermittent episodes of agitation and restlessness, she is on D5W@50 mL/h she is also on Ativan 0 0.5 mg every 4 hours as needed intermittently receiving Lasix and she is on it now maintenance 40 mg IV push every 12 hours I cut it down to once a day. Continues to require sitter at bedside because of her intermittent episodes of agitations, today I added Risperdal 0.25 mg daily. WBC count is 6.5 hemoglobin 7.3 basic metabolic profile is normal BUN is 57 creatinine 1.89, improving Reevaluated on 09/06/2023, patient remains in the ICU, remains agitated intermittently, combative, when I evaluated the patient she was very calm and resting, sleeping, however apparently overnight the patient was extremely agitated and did not sleep much last night. Her Risperdal dose will be increased to 0.25 mg twice daily. The meantime patient is on many other medications to keep her calm and sedated. Patient has a sitter at bedside, does not seem to be in any distress labs today are unremarkable except hemoglobin of 7.6 basic metabolic profile is normal BUN is 52 creatinine 1.71 steadily improving over the last week Patient was reevaluated today on 09/07/2023, patient remains in the ICU, patient continues to have intermittent episodes of confusion, agitation, restlessness, does not seem to be in any respiratory distress, although her chest x-ray did show evidence of pulmonary edema and I recommended a dose of Lasix 40 mg IV push to be given now. Patient is on different types of medications to keep her calm, however does not seem to be helping, and now I am recommending a psychiatric consultation on this patient. WBC count is 6.0 hemoglobin 8.3 electrolytes are normal BUN is 40 creatinine 1.61, steadily improving. Patient is receiving Seroquel 150 twice daily she is also receiving Risperdal 0.25 twice daily, Ativan as needed but she is not requiring much Ativan. Patient is also on multiple cardiac meds. Patient was evaluated today on 09/08/2023, she is now out of the ICU, continues to have intermittent episodes of confusion and agitation, she has a sitter at bedside, today she seems to be [place]. Chest x-ray today showed evidence of worsening pulmonary edema although clinically the patient seems to be doing fine, hence I recommended increasing her Lasix up to 40 mg IV push twice daily. Patient is yet to be seen by psychiatry on consultation. WBC count is 3.4 hemoglobin 7.3 basic metabolic profile is normal BUN is 38 creatinine 1.54. Chest x-ray as noted earlier. Progress note dated September 09, 2023. The patient is seen today in room 356. She is currently on 4 L of oxygen. She is receiving Zosyn. The patient has episodes of confusion and agitation, and has had a sitter at the bedside, for quite some time. Currently, speech pathology is in the room with the patient, evaluating her ability to properly take food by mouth. Laboratory data includes a white count 4.7, hemoglobin 9.8, hematocrit 30.8, and a platelet count of 227,000. Sodium 143, potassium 3.5, chlorides 106, CO2 30, BUN 32, creatinine 1.53. Glucose is 143. Calcium is 8.3. Previous culture data shows urine positive for E. coli, August 21, and a catheter tip with corynebacterium species, from August 22. Chest x-ray from today shows some cardiomegaly, and mild pulmonary vascular congestion. Progress note dated September 10, 2023. The patient is seen today in room 356. She is currently on oxygen at 4 L. She is getting D5W at 50 cc an hour. The patient is much less agitated today. Still has a sitter. Current labs include a white count of 6, hemoglobin 9.5, hematocrit 31.4, and a normal platelet count. Sodium 140, potassium 3.7, chlorides 104, CO2 32, BUN 27, and creatinine 1.42. Glucose is 177. Calcium is 8.1. The patient's urine had evidence of Escherichia coli. The patient also had a catheter tip that was positive for Corynebacterium species. The patient's currently on Zosyn still. Progress note dated September 11, 2023. The patient was seen again in room 356. Currently, she is on 5 L of oxygen. She is getting D5W at 50 cc an hour. She is currently not on any antibiotic. She seems less agitated and restless today. Current labs include a glucose of 137. The patient denies any shortness of breath, coughing, wheezing, chest tightness, or phlegm production. She also denies any chest pain or pressure, palpitations, or fluttering in the chest. She denies any nausea, vomiting, vashti rrhea, or abdominal pain. Progress note dated September 12, 2023. The patient is seen today in room 356. A sitter is in the room with the patient. The patient is currently very agitated and restless. She is getting D5W at 50 cc an hour. Her nasal O2 was turned up to 7 L by high flow. We have asked psychiatry to come back and evaluate her for her agitation. Blood gases done yesterday show pO2 of 57, pCO2 49, pH is 7.45. That apparently was 40%, but it is unclear, if the patient was actually wearing her oxygen. Current labs include a white count 5.3, hemoglobin 9.1, hematocrit 30.6, and a normal platelet count. Sodium 135, potassium 3.9, chlorides 97, CO2 33, BUN 33, and creatinine 1.88. Glucose is 129. Calcium is 7.7. Chest x-ray done September 11, shows a diffuse hazy appearance over both lung bowen. Objective - Vital Signs Vital signs: Vital Signs Temp 97.8 F 09/12/23 08:03 Pulse 83 09/12/23 08:03 Resp 16 09/12/23 08:03 BP 174/94 09/12/23 08:03 Pulse Ox 98 09/12/23 08:03 FiO2 3 09/02/23 04:00 Intake & Output 09/11/23 09/12/23 09/12/23 18:59 06:59 18:59 Intake Total 200 Output Total 1120 Balance -920 Intake: Oral 200 Output: Urine 1120 Straight 820 Other: Voiding Method Bedpan Bedpan Bedpan # Voids 1 ABP, PAP, CO, CI - Last Documented Arterial Blood Pressure 125/73 - Exam No acute distress, currently on nasal O2 at 7 L. HEENT examination is grossly unremarkable. Neck supple. Full range of motion. No adenopathy thyromegaly or neck vein distention. Cardiovascular examination reveals regular rhythm rate. S1-S2 normal. No S3 or S4. No discernible murmur noted. Heart sounds are distant. Heart rate 81 bpm. Lungs reveal scattered bilateral rhonchi. No wheezes or crackles. Breath sounds equal bilaterally. Saturation is 98 %. Abdomen soft with bowel sounds. Extremities are intact. No cyanosis clubbing or edema. Skin is without rash or lesion. Neurologic examination is difficult to assess. Patient with intermittent episodes of agitation and confusion. - Labs CBC & Chem 7: 09/12/23 09:23 09/12/23 09:23 Labs: Abnormal Lab Results - Last 24 Hours (Table) 09/11/23 09/11/23 09/12/23 Range/Units 11:34 20:20 04:18 RBC (3.80-5.40) m/uL Hgb (11.4-16.0) gm/dL Hct (34.0-46.0) % MCHC (31.0-37.0) g/dL RDW (11.5-15.5) % Lymphocytes # (1.0-4.8) k/uL ABG pCO2 49 H (35-45) mmHg ABG pO2 57 L* (83-108) mmHg ABG HCO3 34 H (21-25) mmol/L ABG Total CO2 35 H (19-24) mmol/L ABG O2 Saturation 91.0 L (94-97) % Sodium (137-145) mmol/L Chloride (98-107) mmol/L Carbon Dioxide (22-30) mmol/L BUN (7-17) mg/dL Creatinine (0.52-1.04) mg/dL Glucose (74-99) mg/dL POC Glucose (mg/dL) 209 H 221 H (70-110) mg/dL Calcium (8.4-10.2) mg/dL 09/12/23 09/12/23 Range/Units 09:23 09:23 RBC 3.21 L (3.80-5.40) m/uL Hgb 9.1 L (11.4-16.0) gm/dL Hct 30.6 L (34.0-46.0) % MCHC 29.7 L (31.0-37.0) g/dL RDW 16.9 H (11.5-15.5) % Lymphocytes # 0.5 L (1.0-4.8) k/uL ABG pCO2 (35-45) mmHg ABG pO2 (83-108) mmHg ABG HCO3 (21-25) mmol/L ABG Total CO2 (19-24) mmol/L ABG O2 Saturation (94-97) % Sodium 135 L (137-145) mmol/L Chloride 97 L (98-107) mmol/L Carbon Dioxide 33 H (22-30) mmol/L BUN 33 H (7-17) mg/dL Creatinine 1.88 H (0.52-1.04) mg/dL Glucose 129 H (74-99) mg/dL POC Glucose (mg/dL) (70-110) mg/dL Calcium 7.7 L (8.4-10.2) mg/dL Assessment and Plan Assessment: Cardiopulmonary arrest, x 2, with cardiopulmonary resuscitation, and return of spontaneous circulation on 08/23/23. Acute hypoxic respiratory failure, postcardiac arrest. S/P intubation, and mechanical ventilation, secondary to cardiopulmonary arrest, August 23, 2023. She was extubated on 08/25/23. Encephalopathy. History of congestive heart failure (HFPEF) Coronary artery disease/cardiomyopathy and the patient is post non-ST segment elevation myocardial infarction. Stage III chronic kidney disease. Right heel pressure ulcer, stage III. Subacute fracture of the medial and lateral malleolus. History of hypertension. History of hyperlipidemia. History of type 2 diabetes mellitus. History of severe pulmonary hypertension. History of COPD. History of peripheral neuropathy. Chest wall pain related to CPR. Plan: Plan dated August 23, 2023. The patient is seen in the intensive care unit, room 255. I came in early this morning to place an arterial line, and the internal jugular triple-lumen catheter. The patient had poor IV access. The patient is currently on norepinephrine at 1.4 mcg/min. He is getting saline at [address] A [address] scan of the brain, was negative. The patient blood gases show pO2 of 75, pCO2 of 49, pH of 7.44. We will continue to follow make recommendations along the way. The patient's overall prognosis remains very guarded. The patient continues on ceftriaxone, and fluconazole. Prognosis is guarded. Plan dated August 24, 2023. The patient is seen today in room 255. She remains on mechanical ventilator. The urine is showing evidence of Escherichia coli. The patient continues on Zosyn. The patient's EEG shows slowing, consistent with severe encephalopathy. There was no evidence of any seizure activity. Labs, x-rays, and all medications are reviewed. We will continue to follow the patient, make recommendations along the way. The patient's overall prognosis remains very guarded. Today we make some ventilator changes, including dropping the tidal volume down from 400, down to 350, and the FiO2, being reduced to 40%, for 50%. Plan dated August 25, 2023. The patient is seen today in room 255. She remains on the mechanical ventilator . Today, we will do a daily interruption of sedation, and a spontaneous breathing trial. Dopplers of the lower extremities were negative. She remains on Zosyn for Escherichia coli urinary tract infection. Overnight she developed bradycardia. For that she was started on dopamine by cardiology. The patient is getting saline at 50 cc an hour, propofol at 35 mcg/kg/min. Blood gases are reasonable. Will place the patient on PSV 5, CPAP 5, get some weaning parameters, and see if we can extubate the patient. We will continue to follow. Labs, x-rays, and medications are reviewed. Prognosis is guarded. Plan dated August 29, 2023. The patient will continue with dexmedetomidine, and hopefully, it will be gradually weaned off. The patient was started on Seroquel, 100 mg twice a day. The patient is currently hemodynamically stable, with no need for vasopressors. Cardiac rhythm is also stable. A repeat echocardiogram has been ordered. The patient is on [place] for pain control. Also, the patient continues on Zosyn. Other medications include Lipitor, Norvasc, and Imdur, as well as subcutaneous heparin for DVT prophylaxis. We will continue to monitor, in the intensive care unit. Prognosis is certainly very guarded. Neurologic status is of a concern. Appreciate input by neurology. Plan dated September 09, 2023. The patient is seen today in room 356. The patient continues on Zosyn. The patient is on 4 L of oxygen. There is a sitter at the bedside. She continues on appropriate medications including Risperdal and Seroquel. In addition, the patient continues on GI prophylaxis, and DVT prophylaxis. Though Zosyn is primarily for the cellulitis. We will continue to follow make recommendations along the way. Prognosis is guarded. She does have intermittent episodes of confusion agitation, and yelling out. Plan dated September 10, 2023. The patient is seen today in room 356. The patient still has a sitter. The patient is currently on 4 L. She continues on Zosyn. She is getting D5W at 50 cc an hour. Labs, x-rays, and medications are reviewed. She continues on appropriate medications. We will continue to follow make recommendations along the way. Prognosis is guarded. She is a bit more alert, and less agitated today. Plan dated September 11, 2023. The patient is no longer on antibiotics. She is on oxygen, between 4 to 5 L by nasal cannula. She is getting D5W at 50 cc an hour. No new labs today. She is apparently doing better, and less agitated, less confusion. We will continue to follow. Prognosis is guarded. Labs, x-rays, and all medications are reviewed. Plan dated September 12, 2023. The patient is currently quite agitated. We have asked psychiatry to come back and evaluate the patient, to see if there is anything more they can add, for the patient's restlessness, and agitation. She is currently on 7 L high flow nasal O2. She is given D5W at 50 cc an hour. Blood gases from yesterday have been reviewed. Labs, x-rays, medications are reviewed. We will continue to follow make recommendations along the way. Prognosis is guarded. Time with Patient: Less than 30
[2023-09-12 11:24] LABS: Glucose,Whole Blood 131 mg/dL (70-110)
--- NOTE | 2023-09-12 11:42 | XR ---
EXAMINATION TYPE: XR chest 1V portable DATE OF EXAM: 09/12/2023 7:02 AM CLINICAL INDICATION:Female, 58 years old with history of hypoxic; COMPARISON: Chest radiographs from 09/09/2023 TECHNIQUE: XR chest 1V portable Frontal view of the chest. FINDINGS: Lungs/Pleura: There is no evidence of pleural effusion, focal consolidation, or pneumothorax. Pulmonary vascularity: Unremarkable. Heart/mediastinum: Cardiomediastinal silhouette is unremarkable. Musculoskeletal: No acute osseous pathology. Left central venous catheter tip terminating over the right atrium. IMPRESSION: Stable exam with diffuse haziness the lungs.
[2023-09-12] MEDS: QUEtiapine 100 MG TAB PO SCH (11:52)
--- NOTE | 2023-09-12 14:04 | P.PN ---
Progress Note - Text Progress Note Date: 09/12/23 Interval history: Patient was seen today for psychiatric follow-up. Patients nurse claims that patient has been agitated, restless and kicking in her bed, currently in restraints, sitting with a sitter. Apparently patient has not been sleeping at nighttime. Patient was seen today at the bedside, her room was dark shades were closed. Patient was attempted to be fed by the sitter however not cooperating well. Patient responded to her name, appeared to be flailing in her bed, she was not able to answer many questions, was not able to state her last name. She was pulling at restraints at times. She was not oriented to place or time. She repeated questions back at typewriter mechanic and then looked away, poor attention span. Not following directions. Mental status exam: General Appearance: Patient appears to be older than stated age is not alert. Patient is laying in bed, in restraints, flailing. Patient appears to have fair hygiene and grooming wearing hospital gown with matted hair. Behavior: Patient is calmly lying in bed, in restraints, flailing and kicking. Speech: Patient's speech is garbled and slurred. Hard to understand Mood/Affect: unable to assess Suicidality/Homicidality: unable to assess Perceptions: unable to assess Though content/process: unable to assess Memory and concentration: AO to first name only Judgment and insight: Poor IMPRESSIONS: delirium, likely multiple etiologies PLAN: -At this time patient DOES NOT meet criteria for inpatient psychiatric a dmission. -Delirium precautions recommended with patient including - avoiding use of narcotics and [employer] sedatives, limit anticholinergic medications when possible, frequent re-orientation, minimize use of restraints, open window shades during the day and close them at night -Would recommend the following medication changes/additions: Will discontinue Seroquel at this time and replace with a more potent antipsychotic, Risperdal 2 mg twice daily for psychosis/delirium. Prolixin p.o. and IM as needed for agitation, added Zyprexa twice daily as needed for severe agitation. Melatonin nightly as needed for sleep. Please avoid benzodiazepines and opiates and [employer] sedatives as this will further exacerbate patient's delirium -Continue your management for medical comorbidities -Communicated plan to patient's nurse Psychiatry will will continue to follow as needed -Please contact with any questions.
--- NOTE | 2023-09-12 14:14 | P.PN ---
Subjective Progress Note Date: 09/11/23 Principal diagnosis: Reason for follow-up is right heel diabetic foot ulcer Patient is a 57-year-old female with a past medical history significant for diabetes mellitus hypertension hyperlipidemia history of renal insufficiency requiring dialysis currently not on dialysis and the patient also have a chronic nonhealing wound to the right heel area, present to the hospital with increasing shortness of breath and swelling concerning for fluid overload.Patient did have a cardiac arrest around 4 AM 08/23/2023 with the patient went into asystole got resuscitated intubated and transferred to the ICU subsequently have another cardiac arrest with PEA rhythm not resuscitated. On today's evaluation that is 09/11/2023,the patient remains to be afebrile, patient is on 4 L nasal cannula supplemental oxygen and denies any shortness of breath no chest pain or cough.Patient denies having any nausea or vomiting, no abdominal pain and no diarrhea has been reported, denies pain to the right foot wound No new labs has been obtained today Objective - Vital Signs Vital signs: Vital Signs Temp 97.7 F 09/11/23 08:09 Pulse 83 09/11/23 12:00 Resp 18 09/11/23 12:00 BP 150/75 09/11/23 12:00 Pulse Ox 93 L 09/11/23 12:00 FiO2 3 09/02/23 04:00 Intake & Output 09/10/23 09/11/23 09/11/23 18:59 06:59 18:59 Intake Total 660 Output Total 1325 875 Balance -665 -875 Weight 63.9 kg 57.5 kg Intake: Oral 660 Output: Urine 1325 575 Post Void Residual 300 Other: Voiding Method Indwelling Catheter Bedpan Bedpan # Voids 1 1 # Bowel Movements 1 ABP, PAP, CO, CI - Last Documented Arterial Blood Pressure 125/73 - Exam GENERAL DESCRIPTION: Middle-aged female lying in bed in no distress RESPIRATORY SYSTEM: Unlabored breathing , decreased breath sounds at bases HEART: S1 S2 regular rate and rhythm , ABDOMEN: Soft , no tenderness EXTREMITIES: Right heel wound is decreased in size no slough tissue no surr ounding redness or drainage - Labs CBC & Chem 7: 09/12/23 09:23 09/12/23 09:23 Labs: Abnormal Lab Results - Last 24 Hours (Table) 09/10/23 09/11/2324 Range/Units 20:36 06:07 11:34 POC Glucose (mg/dL) 203 H 137 H 209 H (70-110) mg/dL Assessment and Plan (1) Pressure ulcer of right heel, stage 3 Current Visit: No Status: Acute Code(s): L89.613 - PRESSURE ULCER OF RIGHT HEEL, STAGE 3 SNOMED Code(s): 66416318409825 (2) Type 2 diabetes mellitus with foot ulcer Current Visit: No Status: Acute Code(s): E11.621 - TYPE 2 DIABETES MELLITUS WITH FOOT ULCER; L97.509 - NON-PRESSURE CHRONIC ULCER OTH PRT UNSP FOOT W UNSP SEVERITY SNOMED Code(s): 994087980 (3) UTI (urinary tract infection) Current Visit: Yes Status: Acute Code(s): N39.0 - URINARY TRACT INFECTION, SITE NOT SPECIFIED SNOMED Code(s): 97936134 (4) Aspiration pneumonia Current Visit: Yes Status: Acute Code(s): J69.0 - PNEUMONITIS DUE TO INHALATION OF FOOD AND VOMIT SNOMED Code(s): 076819750 Plan: 1patient with chronic nonhealing wound to the right heel area which has been there for a couple of months now patient overall wound base looks clean with no slough tissue in the wound base 2-patient did have cardiac arrest requiring resuscitation in this patient who did have a chest x-ray with a right-sided infiltrate and question of aspiration pneumonia, the patient urine culture grew E. coli with some resistant pattern, sputum has been negative blood culture has been negative catheter tip cultures growing corynebacterium species more likely contamination with repeat blood culture negative no need for vancomycin. 3patient is afebrile white count remains remains to be normal, patient has received adequate Zosyn, Zosyn was discontinued on 09/10/2023 currently being monitored closely off antibiotic therapy 4the patient right heel wound is healing with no evidence of any cellulitis, local wound care with Aquacel silver dressing Dictation was produced using [employer] software. please excuse any grammatical, word or spelling errors. Time with Patient: Less than 30
--- NOTE | 2023-09-12 14:15 | P.PN ---
Subjective Progress Note Date: 09/12/23 Principal diagnosis: Reason for follow-up is right heel diabetic foot ulcer Patient is a 57-year-old female with a past medical history significant for diabetes mellitus hypertension hyperlipidemia history of renal insufficiency requiring dialysis currently not on dialysis and the patient also have a chronic nonhealing wound to the right heel area, present to the hospital with increasing shortness of breath and swelling concerning for fluid overload.Patient did have a cardiac arrest around 4 AM 08/23/2023 with the patient went into asystole got resuscitated intubated and transferred to the ICU subsequently have another cardiac arrest with PEA rhythm not resuscitated. On today's evaluation that is09/12/2023, the patient continues to be afebrile, the patient is on 4 L nasal cannula oxygen and breathing comfortably, the Pt has received sedation because of agitation by the sitter at the bedside no vomiting or diarrhea reported. Patient white count normal at 5.3, creatinine is 1.88 Objective - Vital Signs Vital signs: Vital Signs Temp 97.8 F 09/12/23 08:03 Pulse 80 09/12/23 12:35 Resp 18 09/12/23 12:35 BP 143/84 09/12/23 12:35 Pulse Ox 96 09/12/23 12:35 FiO2 3 09/02/23 04:00 Intake & Output 09/11/23 09/12/23 09/12/23 18:59 06:59 18:59 Intake Total 200 Output Total 1120 Balance -920 Intake: Oral 200 Output: Urine 1120 Straight 820 Other: Voiding Method Bedpan Bedpan Bedpan # Voids 1 ABP, PAP, CO, CI - Last Documented Arterial Blood Pressure 125/73 - Exam GENERAL DESCRIPTION: Middle-aged female lying in bed in no distress RESPIRATORY SYSTEM: Unlabored breathing , decreased breath sounds at bases HEART: S1 S2 regular rate and rhythm , ABDOMEN: Soft , no tenderness EXTREMITIES: Right heel wound is currently dressed no drainage - Labs CBC & Chem 7: 09/12/23 09:23 09/12/23 09:23 Labs: Abnormal Lab Results - Last 24 Hours (Table) 09/11/23 09/12/23 09/12/23 Range/Units 20:20 04:18 09:23 RBC (3.80-5.40) m/uL Hgb (11.4-16.0) gm/dL Hct (34.0-46.0) % MCHC (31.0-37.0) g/dL RDW (11.5-15.5) % Lymphocytes # (1.0-4.8) k/uL ABG pCO2 49 H (35-45) mmHg ABG pO2 57 L* (83-108) mmHg ABG HCO3 34 H (21-25) mmol/L ABG Total CO2 35 H (19-24) mmol/L ABG O2 Saturation 91.0 L (94-97) % Sodium 135 L (137-145) mmol/L Chloride 97 L (98-107) mmol/L Carbon Dioxide 33 H (22-30) mmol/L BUN 33 H (7-17) mg/dL Creatinine 1.88 H (0.52-1.04) mg/dL Glucose 129 H (74-99) mg/dL POC Glucose (mg/dL) 221 H (70-110) mg/dL Calcium 7.7 L (8.4-10.2) mg/dL 09/12/23 09/12/23 Range/Units 09:23 11:22 RBC 3.21 L (3.80-5.40) m/uL Hgb 9.1 L (11.4-16.0) gm/dL Hct 30.6 L (34.0-46.0) % MCHC 29.7 L (31.0-37.0) g/dL RDW 16.9 H (11.5-15.5) % Lymphocytes # 0.5 L (1.0-4.8) k/uL ABG pCO2 (35-45) mmHg ABG pO2 (83-108) mmHg ABG HCO3 (21-25) mmol/L ABG Total CO2 (19-24) mmol/L ABG O2 Saturation (94-97) % Sodium (137-145) mmol/L Chloride (98-107) mmol/L Carbon Dioxide (22-30) mmol/L BUN (7-17) mg/dL Creatinine (0.52-1.04) mg/dL Glucose (74-99) mg/dL POC Glucose (mg/dL) 131 H (70-110) mg/dL Calcium (8.4-10.2) mg/dL Assessment and Plan (1) Pressure ulcer of right heel, stage 3 Current Visit: No Status: Acute Code(s): L89.613 - PRESSURE ULCER OF RIGHT HEEL, STAGE 3 SNOMED Code(s): 20095327648062 (2) Type 2 diabetes mellitus with foot ulcer Current Visit: No Status: Acute Code(s): E11.621 - TYPE 2 DIABETES MELLITUS WITH FOOT ULCER; L97.509 - NON-PRESSURE CHRONIC ULCER OTH PRT UNSP FOOT W UNSP SEVERITY SNOMED Code(s): 035427697 (3) UTI (urinary tract infection) Current Visit: Yes Status: Acute Code(s): N39.0 - URINARY TRACT INFECTION, SITE NOT SPECIFIED SNOMED Code(s): 83242153 (4) Aspiration pneumonia Current Visit: Yes Status: Acute Code(s): J69.0 - PNEUMONITIS DUE TO INHALATION OF FOOD AND VOMIT SNOMED Code(s): 311146257 Plan: 1patient with chronic nonhealing wound to the right heel area which has been there for a couple of months now patient overall wound base looks clean with no slough tissue in the wound base 2-patient did have cardiac arrest requiring resuscitation in this patient who did have a chest x-ray with a right-sided infiltrate and question of aspiration pneumonia, the patient urine culture grew E. coli with some resistant pattern, sputum has been negative blood culture has been negative catheter tip cultures growing corynebacterium species more likely contamination with repeat blood culture negative no need for vancomycin. 3patient is afebrile white count remains remains to be normal, patient has received adequate Zosyn, Zosyn was discontinued on 09/10/2023 patient seems to be doing well off antibiotics and will monitor closely 4the patient right heel wound is healing with no evidence of any cellulitis, patient to continue local wound care with Aquacel silver dressing change every 48 hours Dictation was produced using [employer] dictation software. please excuse any grammatical, word or spelling errors. Time with Patient: Less than 30
[2023-09-12] MEDS: risperiDONE ODT 2 MG TAB PO SCH (14:40)
[2023-09-12] MEDS: OLANZapine 10 MG VIAL IM PRN (15:58)
[2023-09-12 16:23] LABS: Glucose,Whole Blood 109 mg/dL (70-110)
[2023-09-12 20:16] LABS: Glucose,Whole Blood 137 mg/dL (70-110)
[2023-09-12] MEDS: MELATONIN 5 MG TABLET PO SCH (21:34)
[2023-09-13 05:49] LABS: Glucose,Whole Blood 96 mg/dL (70-110)
[2023-09-13 08:32] LABS: African American GFR (CKD) 40 (>60 ml/min/1.73 sqM); Anion Gap 6 mmol/L; Blood Urea Nitrogen 32 mg/dL (7-17); Carbon Dioxide 30 mmol/L (22-30); Chloride 98 mmol/L (98-107); Glucose 81 mg/dL (74-99); Non-African American GFR(CKD) 35 (>60 ml/min/1.73 sqM); Potassium 3.6 mmol/L (3.5-5.1); Sodium 134 mmol/L (137-145)
[2023-09-13 08:39] LABS: Anisocytosis Slight; HCT 30.3 % (34.0-46.0); HGB 9.5 gm/dL (11.4-16.0); Hypochromasia Marked; MCH 29.1 pg (25.0-35.0); MCHC 31.2 g/dL (31.0-37.0); MCV 93.3 fL (80.0-100.0); Mean Platelet Volume 8.9; Platelet Count 258 k/uL (150-450); Poikilocytosis Moderate; RBC 3.25 m/uL (3.80-5.40); WBC 5.1 k/uL (3.8-10.6)
[2023-09-13] MEDS: FUROSEMIDE 10 MG/ML 4 ML VIAL IV SCH (09:03)
--- NOTE | 2023-09-13 09:53 | P.PN ---
Subjective Progress Note Date: 09/12/23 57-year-old female came in with complaints of shortness of breath and orthopnea found to be in congestive heart failure exacerbation patient has congestive heart failure with reduced ejection fraction in the past patient has increasing pedal edema. Patient also has an ulcer in the right foot stage III-IV which appeared to be infected we will consult wound care and infectious disease. Patient was on hemodialysis during last hospitalization her creatinine presently is 1.5 which is significantly improved patient potassium is 5.5, patient is on Entresto and Aldactone Aldactone will be held Entresto will be continued since she is receiving IV Lasix and expecting her potassium to improve if it does not improve or get worse then Entresto need to be discontinued as well. Patient has hypervolemic hyponatremia and hyperglycemia. 08/21/2023 Was evaluated today on the medical floor. Patient was continued on IV Lasix overnight however she was no longer reporting any shortness of breath and her lower extremity edema has improved. She was taken off of the Lasix at this time due to increased creatinine up to 2.31 additionally potassium remains elevated at 5.7. Echocardiogram comes back showing an improved ejection fraction of 60 to 65% because of this and also the hyperkalemia patient will not be continued on entresto. Patient was evaluated by infectious disease who felt like that heel ulcer on the right side was more likely a pressure injury stage III and is recommending local wound care to continue with Aquacel. Patient is reporting significant pain to the right foot and feels like it is fractured. Upon review of the patient's chart she did have a x-ray completed of this 12 days ago ordered by her grinder set up operator universal Dr. Mayen. Ankle x-ray did review a mildly displaced acute distal fibular fracture. Repeat x-ray of the foot and ankle completed today does reveal a subacute fractures of the medial and lateral malleolus. The lateral malleolus fracture was seen on the patient's prior exam the medial malleolus fracture may be new in the interval and this would be considered an unstable ankle fracture. There is interval 6 mm displacement of the lateral malleolus. There is a deep soft tissue ulcer at the plantar heel with no clear radiographic findings of a contagious osteomyelitis at this time. Orthooedics was consulted for this. 08/22/2023 Patient evaluated in follow-up today resting in bed. She was taken off of the Lasix remains off at this time. Bladder scan was requested and not done yesterday to rule out urinary retention, creatinine today is increased up to 2.56. Bladder scan was done require urinary straight catheterization of 550 mL taken out. Urinalysis was sent which is significantly abnormal. Patient is also noted to have multiple genital lesions which appear wartlike she admits to not having any routine gynecological screenings for many years. She is not having any vaginal bleeding or discharge. Renal ultrasound has been ordered to rule out any obstructive uropathy. 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 Patient upon arrival to the intensive care unit had another episode of cardiac arrest patient had bradycardia while on pressors in the ICU patient was intubated following the first cardiac arrest and is currently on the mechanical ventilator 50% FiO2. Chest x-ray showing similar interstitial and patchy component airspace disease right greater than left. There is a possible trace left pleural effusion. A brain CT which shows no acute intracranial process. Blood work today shows a white blood cell count of 13.8, hemoglobin 9.5, sodium level of 135, BUN of 62, creatinine of 2.76. AST ALT and alk phosphatase are significantly elevated consistent with a shock liver. TSH 3.310. Urinalysis is abnormal. Her urine culture is showing gram-negative bacilli patient is covered for the urinary tract infection as well as aspiration with IV Zosyn being managed by infectious disease. Patient is currently sedated with propofol and did require vasopressor support with Levophed which has been weaned at this time. Will discontinue the gabapentin patient is continued on aspirin Plavix and statin has been placed on hold. There is concern for possible arrhythmia precipitating the asystole additionally we need to rule out embolism and a D-dimer has been ordered. 08/24/2023 Patient is seen in follow-up today continues in the ICU on mechanical ventilation. FiO2 is 50% although titrating and was just placed at 40% with a PEEP of 5. Chest x-ray today shows that the ET tube is 7 mm from the sonam suggesting a pulled back 2 cm and reassess and also suspected underlying vascular congestion. Neuro is following and per nursing staff patient is following some simple commands and undergoing sedation holidays. Patient noted to have reduced EF of 30 to 35% and cardiology had been following. Will reconsult and appreciate input and recommendations. patient did have dialysis catheter removed and sent for cultures which are pending. Infectious disease following and patient is maintained on antibiotic. D-dimer is elevated above 16 and will attempt to obtain a VQ scan.57-year-old female came in with complaints of shortness of breath and orthopnea found to be in congestive heart failure exacerbation patient has congestive heart failure with reduced ejection fraction in the past patient has increasing pedal edema. Patient also has an ulcer in the right foot stage III-IV which appeared to be infected we will consult wound care and infectious disease. Patient was on hemodialysis during last hospitalization her creatinine presently is 1.5 which is significantly improved patient potassium is 5.5, patient is on Entresto and Aldactone Aldactone will be held Entresto will be continued since she is receiving IV Lasix and expecting her potassium to improve if it does not improve or get worse then Entresto need to be discontinued as well. Patient has hypervolemic hyponatremia and hyperglycemia. 08/21/2023 Was evaluated today on the medical floor. Patient was continued on IV Lasix overnight however she was no longer reporting any shortness of breath and her lower extremity edema has improved. She was taken off of the Lasix at this time due to increased creatinine up to 2.31 additionally potassium remains elevated at 5.7. Echocardiogram comes back showing an improved ejection fraction of 60 to 65% because of this and also the hyperkalemia patient will not be continued on entresto. Patient was evaluated by infectious disease who felt like that heel ulcer on the right side was more likely a pressure injury stage III and is recommending local wound care to continue with Aquacel. Patient is reporting significant pain to the right foot and feels like it is fractured. Upon review of the patient's chart she did have a x-ray completed of this 12 days ago ordered by her grinder set up operator universal Dr. Mayen. Ankle x-ray did review a mildly displaced acute distal fibular fracture. Repeat x-ray of the foot and ankle completed today does reveal a subacute fractures of the medial and lateral malleolus. The lateral malleolus fracture was seen on the patient's prior exam the medial malleolus fracture may be new in the interval and this would be considered an unstable ankle fracture. There is interval 6 mm displacement of the lateral malleolus. There is a deep soft tissue ulcer at the plantar heel with no clear radiographic findings of a contagious osteomyelitis at this time. Orthooedics was consulted for this. 08/22/2023 Patient evaluated in follow-up today resting in bed. She was taken off of the Lasix remains off at this time. Bladder scan was requested and not done yesterday to rule out urinary retention, creatinine today is increased up to 2.56. Bladder scan was done require urinary straight catheterization of 550 mL taken out. Urinalysis was sent which is significantly abnormal. Patient is also noted to have multiple genital lesions which appear wartlike she admits to not having any routine gynecological screenings for many years. She is not having any vaginal bleeding or discharge. Renal ultrasound has been ordered to rule out any obstructive uropathy. 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 Patient upon arrival to the intensive care unit had another episode of cardiac arrest patient had bradycardia while on pressors in the ICU patient was intubated following the first cardiac arrest and is currently on the mechanical ventilator 50% FiO2. Chest x-ray showing similar interstitial and patchy component airspace disease right greater than left. There is a possible trace left pleural effusion. A brain CT which shows no acute intracranial process. Blood work today shows a white blood cell count of 13.8, hemoglobin 9.5, sodium level of 135, BUN of 62, creatinine of 2.76. AST ALT and alk phosphatase are significantly elevated consistent with a shock liver. TSH 3.310. Urinalysis is abnormal. Her urine culture is showing gram-negative bacilli patient is covered for the urinary tract infection as well as aspiration with IV Zosyn being managed by infectious disease. Patient is currently sedated with propofol and did require vasopressor support with Levophed which has been weaned at this time. Will discontinue the gabapentin patient is continued on aspirin Plavix and statin has been placed on hold. There is concern for possible arrhythmia precipitating the asystole additionally we need to rule out embolism and a D-dimer has been ordered. 08/24/2023 Patient is seen in follow-up today continues in the ICU on mechanical ventil ation. FiO2 is 50% although titrating and was just placed at 40% with a PEEP of 5. Chest x-ray today shows that the ET tube is 7 mm from the sonam suggesting a pulled back 2 cm and reassess and also suspected underlying vascular congestion. Neuro is following and per nursing staff patient is following some simple commands and undergoing sedation holidays. Patient noted to have reduced EF of 30 to 35% and cardiology had been following. Will reconsult and appreciate input and recommendations. patient did have dialysis catheter removed and sent for cultures which are pending. Infectious disease following and patient is maintained on antibiotic. D-dimer is elevated above 16 and will atte mpt to obtain a VQ scan. 08/25/23 : Patient seen and evaluated at bedside, patient extubated around noon, transition to 5 L of oxygen to nasal cannula. Family at bedside, blood work reviewed hemoglobin 10.3, serum chemistry reviewed sodium 140 potassium 4.8 BUN 57 creatinine 2.49 calcium of 7. 08/26/23 : Patient seen and evaluated at bedside, patient remains in medical ICU, does complain of chest pain from CPR. Patient has been weaned off dopamine, cardiology following, blood work reviewed, hemoglobin 8.5 platelet count of 217, serum chemistry shows sodium 141 BUN 51 creatinine 2.28. Followed up by nephrology as well MARYLOU secondary to ATN continue to monitor intake and output 08/27/23: Patient seen and evaluated bedside, on evaluation patient is disoriented, patient is drowsy however likely having acute delirium. Seen by cardiology echocardiogram shows preserved ejection fraction continue with current medical management, patient on Precedex for acute delirium, continue to remain on oxygen supplementation with nasal cannula blood work reviewed CBC showed WBC 8.2 hemoglobin 8.6 serum chemistry showed creatinine of 2.22. Patient remains delirious, daughter at bedside all questions answered 08/28/2023 Patient was agitated earlier requiring Seroquel and Placed on Precedex because she was has risk to self and others Currently when I saw the patient she was sleepy However she is not tachypneic show does not look in pain. Vitals are stable She is saturating 91% on 2 L oxygen via nasal cannula She remains on Zosyn for pneumonia and UTI She is on normal saline at 50 mL/h 08/29/2023 Patient remains sleepy, she still has some encephalopathy But she is on Precedex which will be tapered off by pulmonary team today to assess her mentation as well. Patient has been followed by neurology for suspected anoxic brain injury after her cardiac arrest and return of circulation on 08/22. There is no evidence of seizure-like activity She has catheter tip infection with culture growing Corynebacterium species and she is currently covered with Zosyn which also help for her right heel pressure ulcer and aspiration pneumonia and UTI. Cardiology evaluated the patient and there is no clear evidence for her cardiac arrest although she has history of coronary artery disease and previous stents. Currently with no chest pain. She remains on aspirin and Plavix, gentle hydration, IV steroids 08/30/2023 Today her sedation remains off however patient mentation not completely resolved, it is somewhat better as she was more sleepy yesterday She is eating okay, swallowing is fine She was started on IV Lasix twice daily per fruit distributor. She has good urine output and normal send discontinued She is hemodynamically stable and oxygenation is acceptable Remains on aspirin and Plavix and Seroquel 08/31/23: Seen and evaluated at bedside, patient remains on 4 L of oxygen, blood work reviewed, WBC 7.3 hemoglobin 9.1 platelet count of 203 glucose 119. CBC reviewed showed WBC 7.3 hemoglobin 9.1 platelet count of 203.. Neurology consulted and following. Patient is awake and alert able to answer questions and follow commands sister at bedside all questions answered 09/01/23: Seen and evaluated at bedside, patient vitals reviewed, serum chemistry reviewed sodium 145 potassium 4.6 creatinine 2.71, CBC reviewed patient remains on IV Zosyn , appreciate input from nephrology continue patient on IV Lasix, delirium persist 09/02/23: Patient seen and evaluated bedside, patient been admitted for cardiopulmonary arrest, respiratory failure s/p extubation on nasal cannula however continues to remain delirious. Blood work reviewed hemoglobin 8.8, platelet count 226, serum chemistry reviewed creatinine 2.55 potassium 4.5. MRI brain has been ordered which is pending, patient remains disoriented 09/03/2023 Patient is seen in follow-up status post recent extubation maintained on a few liters of pulmonary java manager following closely. Cardiology following as well and adjusted medications recommending continuing with current medication regimen. No change in mentation as patient continues with periods of confusion and restlessness. Medications being adjusted and Ativan as needed has been added. Continue Seroquel. Patient will answer questions appropriately and discuss her health history and can recall her doctors names but will ramble on regarding something irrelevant during conversation. Patient is redirectable. Patient continues with partial cast noted on the lower extremity. Patient continues on IV Lasix and kidney functions are improving nephrology following closely. Plan is for patient to possibly move out of the ICU. Will have PT/OT therapy evaluate the patient and discuss further with consultations along with case management regarding possible ECF versus discharge planning. 09/04/2023 Patient seen in follow-up today and continues to have periods of confusion and restlessness. Patient continues in the ICU with multiple medical consultations following. Hemoglobin was found to be less than 7 today and will transfuse 1 unit of PRBC. Sodium 147 and recommend repeat labs as well. Nephrology is following and patient is continued on IV Lasix. MRI of the brain remains pending and neurology is following. 09/05/2023 Patient is seen and evaluated today continues to be in the ICU needs continuous reinforcement on keeping oxygen on. Patient does have a safety coordinator at the bedside. Patient is currently resting although remains confused and anxious and agitated at times. Hemoglobin is stable above 7 status post 1 unit of PRBC. Patient continues on IV Lasix daily and nephrology following closely. Patient to continue on IV antibiotics with infectious disease following. 09/06/2023 Patient seen in follow-up today continues to be sleepy at this time although when awake patient is extremely restless and agitated requiring sitter at the bedside. Adjustments to medications being made and Risperdal is being increased and will continue with Seroquel. Ativan as needed. Patient's hemoglobin is stable with no active bleeding noted. Neurology following as patient continues to be unable to obtain an MRI and will have a repeat EEG as well as CT brain per neurology. Patient is afebrile and is continued on antibiotics with infectious disease following. 09/09/2023 Patient seen in follow-up today has been transitioned out of the ICU and curren tly on selective unit and continues with safety coordinator at the bedside. Patient is keeping her oxygen on currently and is on 4 L. Multiple medical consultations following and per nursing staff patient was able to get up and work with physical therapy today. Plan is for ECF when patient's mentation is improved. Patient continues on IV Lasix twice daily as well with nephrology following. Continue Ativan as needed and patient is also maintained on Risperdal twice daily. Patient is afebrile with no reports of chest pain or shortness of breath. Hemoglobin is stable at 9.8 and white count is normal and kidney functions are improving. Continue monitoring Accu-Cheks before meals and at bedtime and will continue with sliding scale. Neurology following and patient is scheduled to undergo repeat brain CT today. Chest x-ray continues to show pulmonary vascular congestion. 09/10/2023 Patient is seen in follow-up today and mentation is much improved with family sitting at the bedside. Patient is able to have conversation and reports she is going home although patient has significant weakness and will be requiring ECF on discharge. Case management following awaiting for ECF evaluation and will require insurance authorization. Patient is afebrile and has been on IV antibiotics in the form of Zosyn with infectious disease following and white count remains normal and patient will be monitored off antibiotic therapy. Patient also continues on IV Lasix twice daily along with treatments and continued supplemental oxygen. Patient is on 4 L via nasal cannula. 09/11/2023 Patient is seen in follow-up this morning continues to display periods of confusion with increased agitation and restlessness. Per nursing staff patient had reports of hallucinating and seeing things crawling in the room that were not there. Patient is extremely anxious today although continues to be more mikaela ke. Patient reports is eating without much of an appetite. Patient has been compliant with working with physical therapy and will require ECF on discharge. Patient continues with safety coordinator as patient is impulsive and attempts to get up out of the bed impulsively. Will ask for psychiatry to reevaluate and adjust medications. Will discontinue Dilaudid as the hallucinations appeared shortly after receiving this medication. Patient does elicit pain in the right leg and foot. 09/12/2023 Patient is seen in follow-up today and continues with confusion and requiring a sitter for safety. Patient has been working with physical therapy and reports she is doing well and ready to go home although she will require ECF for continued strength and mobility. Patient is extremely impulsive and restless at times. Asking psychiatry to reevaluate and will adjust medications. Family also working on obtaining guardianship as patient is not making sound decisions for herself medically. Family report they also cannot take her home and take care of her as they are elderly. Patient is afebrile with no reported chest pain or shortness of breath. Patient continues on 4 L and continues to remove her oxygen frequently. Patient is maintained on IV Lasix and being transition to daily. Continue monitoring kidney functions and nephrology is following. Being monitored off antibiotic therapy Review of systems: Constitutional: No reports of fatigue, fever, or chills, reports feeling anxious Cardiovascular: No reports of chest pain or palpitations Respiratory: No reports of shortness of breath or cough GI: No reports of nausea, vomiting, or diarrhea : No reports of dysuria or retention Neurovascular: reports of generalized weakness but improving and reports feels fine to go home All medications have been reviewed PHYSICAL EXAMINATION: GENERAL: The patient is on nasal cannula, awake alert and oriented x 2, much more appropriate today, elderly appearing, unkept, ill-appearing HEENT: Pupils are round and equally reacting to light. EOMI. CARDIOVASCULAR: S1 and S2 muffled PULMONARY: Decreased breath sounds bilaterally with some scattered rhonchi noted ABDOMEN: Soft, nontender, nondistended, normoactive bowel sounds. No palpable organomegaly. MUSCULOSKELETAL: No joint swelling or deformity. EXTREMITIES: Right lower extremity bandage with partial cast noted NEUROLOGICAL: pupils reactive, less anxious although continues, cooperative, tearful SKIN: Patient has right plantar surface ulcer on the posterior foot stage III-IV with areas of necrotic tissue. Casting and Tam wrap noted of the right lower extremity Assessment: * Asystole/cardiopulmonary arrest x 2 with CPR/ROSC * Respiratory failure requiring intubation s/p extubation 08/25/2023 * Acute metabolic encephalopathy * Congestive heart failure with systolic dysfunction acute on chronic exacerbation * Acute hypoxic respiratory failure secondary to CHF * Ischemic cardiomyopathy with improved EF * Acute kidney injury secondary to ATN on chronic kidney disease stage III * Urinary tract infection with E. coli * Subacute fracture of the medial and lateral malleolus, orthopedics following * Right heel stage III pressure injury continue local wound care with aquacel ID following. * Genital lesions, will need fish roe processor follow up outpatient for routine screenings * Hypertension * Hyperlipidemia * Type 2 diabetes mellitus uncontrolled hgb a1c 12.1 * Severe pulmonary hypertension * COPD without any acute exacerbation * Peripheral neuropathy * Obesity with a body mass index of 30.8 * GI prophylaxis * DVT prophylaxis * Full code Plan: Patient being followed by multiple medical consultation and has been moved from the ICU to the stepdown unit and continues with safety coordinator. Wean FiO2 as tolerated and patient is maintained on 3 to 4 L via nasal cannula. Patient continues to remove oxygen tubing and oxygen saturations drop into the low 80s. Patient continues on IV Lasix twice daily and chest x-ray showing continued pulmonary vascular congestion, weaning FiO2 as tolerated Patient was able to work with PT/OT therapy again today and will await updated notes with case management following as plans are for patient to go to ECF. Chart being reviewed and patient will also require insurance authorization. Patient will also need for sitter removed for at least 24 hours before ECF considers accepting the patient. Family working on obtaining guardianship to make medical choices for patient. Mentation continues to wax and wane although patient is more awake today and able to respond and answer questions more appropriately. Per nursing staff patient had an episode of hallucinating reporting she was seeing things crawling that were not there, possibly medication effect as patient did receive Dilaudid. Will discontinue and have discussed with psychiatry to reevaluate and adjust medications. Continue safety coordinator at this time as patient is very impulsive and attempts to get out of the bed very frequently Hemoglobin is stable above 9 today with no active bleeding noted. Transfuse if [address] of the brain is negative for acute process. Neurology following Due to multiple complex medical issues, prognosis is guarded The impression and plan of care has been dictated by Mouna Rowley, Nurse Practitioner as directed. Dr. Ricardo MD I have performed a history and examination and MDM of this patient, discussed the same with the dictator, and agree with the dictator's assessment and plan as written ,documented as a scribe. Based on total visit time, I have performed more than 50% of the visit. Objective - Vital Signs Vital signs: Vital Signs Temp 97.8 F 09/12/23 08:03 Pulse 83 09/12/23 08:03 Resp 16 09/12/23 08:03 BP 174/94 09/12/23 08:03 Pulse Ox 98 09/12/23 08:03 FiO2 3 09/02/23 04:00 Intake & Output 09/11/23 09/12/23 09/12/23 18:59 06:59 18:59 Intake Total 200 Output Total 1120 Balance -920 Intake: Oral 200 Output: Urine 1120 Straight 820 Other: Voiding Method Bedpan Bedpan Bedpan # Voids 1 ABP, PAP, CO, CI - Last Documented Arterial Blood Pressure 125/73 - Labs CBC & Chem 7: 09/13/23 07:30 09/13/23 07:30 Labs: Abnormal Lab Results - Last 24 Hours (Table) 09/11/23 09/11/23 09/12/23 Range/Units 11:34 20:20 04:18 ABG pCO2 49 H (35-45) mmHg ABG pO2 57 L* (83-108) mmHg ABG HCO3 34 H (21-25) mmol/L ABG Total CO2 35 H (19-24) mmol/L ABG O2 Saturation 91.0 L (94-97) % POC Glucose (mg/dL) 209 H 221 H (70-110) mg/dL
--- NOTE | 2023-09-13 10:52 | P.PN ---
Subjective Patient is seen for follow-up for acute kidney injury. patient remains confused and requiring a sitter. Renal function has improved with creatinine staying at about 1.5 mg/dL. creatinine is 1.6 today. Patient is being diuresed. Volume status has much improved. Objective - Vital Signs Vital signs: Vital Signs Temp 97.5 F L 09/13/23 09:13 Pulse 80 09/13/23 09:13 Resp 18 09/13/23 09:13 BP 177/88 09/13/23 09:13 Pulse Ox 98 09/13/23 09:13 FiO2 3 09/02/23 04:00 Intake & Output 09/12/23 09/13/23 09/13/23 18:59 06:59 18:59 Intake Total 0 200 10 Output Total 500 Balance 0 -300 10 Weight 57.5 kg Intake: IV 10 Invasive Line 9 10 Oral 0 200 Output: Urine 500 Other: Voiding Method Indwelling Catheter Indwelling Catheter Indwelling Catheter # Voids 0 # Bowel Movements 0 1 ABP, PAP, CO, CI - Last Documented Arterial Blood Pressure 125/73 - Exam Patient is awake. She is comfortable. Confused Examination of the heart S1 and S2 Examination of the lungs bilateral breath sounds are heard Abdomen is soft nontender Examination of lower extremities shows no edema. Right leg is in cast - Labs CBC & Chem 7: 09/13/23 07:30 09/13/23 07:30 Labs: Abnormal Lab Results - Last 24 Hours (Table) 09/12/23 09/12/23 09/13/23 Range/Units 11:22 20:13 07:30 RBC (3.80-5.40) m/uL Hgb (11.4-16.0) gm/dL Hct (34.0-46.0) % RDW (11.5-15.5) % Sodium 134 L (137-145) mmol/L BUN 32 H (7-17) mg/dL Creatinine 1.60 H (0.52-1.04) mg/dL POC Glucose (mg/dL) 131 H 137 H (70-110) mg/dL Calcium 8.0 L (8.4-10.2) mg/dL Stool Occult Blood (Negative) 09/13/23 09/13/23 Range/Units 07:30 09:00 RBC 3.25 L (3.80-5.40) m/uL Hgb 9.5 L (11.4-16.0) gm/dL Hct 30.3 L (34.0-46.0) % RDW 17.0 H (11.5-15.5) % Sodium (137-145) mmol/L BUN (7-17) mg/dL Creatinine (0.52-1.04) mg/dL POC Glucose (mg/dL) (70-110) mg/dL Calcium (8.4-10.2) mg/dL Stool Occult Blood Positive H (Negative) Assessment and Plan Assessment: 1. Acute kidney injury secondary to ATN secondary to cardiorenal syndrome and cardiac arrest. Creatinine stable at 1.5. increase to 1.8 and decreased to 1.6 today. Lasix dose decreased. Patient was on hemodialysis in the past with last treatment being July 02, 2023. Dialysis catheter it is now removed. Renal US no hydronephrosis. 2. Volume overload. Improved with diuresis. 3. Acute on chronic diastolic CHF. 4. Diabetes mellitus. 5. Right foot wound. 6. Coronary disease with cardiac stenting. 7. Status post PEA arrest with concern for anoxic encephalopathy. 8. Septic Shock-urine culture is growing E. coli. Catheter tip culture is growing corynebacterium, blood culture negative so far. 9. Metabolic acidosis, nongap, improved 10. Hypernatremia, status post D5W, improved Plan: continue with IV Lasix Repeat labs in a.m.
--- NOTE | 2023-09-13 11:21 | P.PN ---
Subjective Progress Note Date: 09/13/23 Principal diagnosis: Respiratory failure. Pulmonary consult dated August 23, 2023. This is a 57-year-old female who was admitted back on August 18, for a right heel wound. Early this morning, the patient had a cardiopulmonary arrest. The patient apparently was initially found to be bradycardic, and then had asystole. She received 3 rounds of epinephrine. She arrived to the intensive care unit this morning at 630, having been intubated on the floor by anesthesia. In the I CU, the patient had an episode of pulseless electrical activity, and asystole, and received 2 rounds of epinephrine, a dose of atropine, and some sodium bicarbonate. I came into the intensive care unit this morning, early, to place a left internal jugular triple-lumen catheter, and a right femoral arterial line. Currently, the patient is on volume assist-control, rate 16, tidal volume 400, FiO2 50%, PEEP of 5. The most recent blood gases show pO2 of 75, pCO2 49, pH is 7.44. Arterial blood gases shortly after intubation showed a pO2 of 268, pCO2 of 38, and a pH of 7.25. The patient is currently on norepinephrine at 1.4 mcg/min, and saline at 50 cc an hour. Current labs include a white count 13.8, hemoglobin 9.5, hematocrit 31, and a platelet count of 257,000. PT was 12.9 with an INR of 1.2. Sodium 135, potassium 4.9, chlorides 111, CO2 19, anion gap 5, BUN 62, creatinine 2.76. The patient's AST is 468. ALT is 286. Albumin is 2.1. Urine, is suspicious for possible infection. Brain CT Today, Shows No Acute Intracranial Process. Chest x-ray shows bilateral patchy airspace d isease, right greater than left. Progress note dated August 24, 2023. The patient is seen today in the intensive care unit, room 255. The patient remains on the mechanical ventilator. Current settings include volume assist- control, rate 16, tidal volume 400, FiO2 50%, PEEP of 5. The tidal volume will be dropped down to 350, and the FiO2 will be dropped down to 40%, current blood gases show pO2 132, pCO2 34, pH is 7.37. The patient continues on 0.9 at 50 cc an hour, propofol at 20 mcg/kg/min, and vital 1.2 at 10 cc an hour, with a goal of 48. The patient is discovered to have gram-negative bacilli in the urine. She continues on Zosyn. White count 9, hemoglobin 9.6, hematocrit 30.1, p latelet count 242,000. Sodium 138, potassium 4.7, chloride 113, CO2 18, BUN 63, and creatinine 2.65. Anion gap is 7. The patient's AST is 199, ALT is 235. Troponin is 0.565. Albumin is 2.0. The gram-negative bacilli in the urine was discovered to be Escherichia coli. Chest x-ray shows an endotracheal tube that is too low in the trachea, and should be pulled back. In addition, there is evidence of underlying vascular congestion, and/or infiltrates. Progress note dated August 25, 2023. 57-year-old female seen again in room 255. The patient remains on mechanical ventilator. She is on volume assist-control, rate 16, tidal volume 350, FiO2 40%, PEEP of 5. Blood gases show a pO2 of 95, pCO2 of 39, pH is 7.31. The patient is getting propofol 35 mcg/kg/min, saline at 50 cc an hour, and dopamine at 2.5 mcg/kg/min. The patient continues on Zosyn for Escherichia coli. The patient did develop some bradycardia, overnight, which required her to be on dopamine. We are going to order some Dopplers of the lower extremities. In addition, we will do a daily interruption of sedation, and a spontaneous breathing trial. Count is 10.5, hemoglobin 10.3, hematocrit 32.7, platelet count 314,000. Sodium 140, potassium 4.8, chlorides 113, CO2 18, BUN 57, creatinine 2.49. Glucose is 142. Magnesium is 2.1, calcium is 7.0. The patient's urine specimen from August 21, revealed Escherichia coli. Dopplers of the lower extremities were negative. Chest x-ray shows some patchy bilateral in filtrates, more left-sided than right-sided. On today's evaluation of 08/26/2023, the patient is being seen for a follow-up. The patient is post cardiopulmonary arrest that occurred on 08/23/2023 and the patient return of spontaneous circulation. Subsequently, the patient was extubated on 08/25/2023. The patient is currently on 4 L of oxygen by nasal cannula. The patient remains encephalopathic. At times, restless in bed and somewhat agitated. Based on that, made recommendations to start the patient on Precedex at the low-dose to control her restlessness and agitation. She is also noted to have a right ankle fracture and a chronic nonhealing heel ulcer, stage [place]. She was also found to have an E. coli in her urine possibly underlying urine tract infection on 08/22/2023. On today's evaluation, the patient is on 40s of oxygen by nasal cannula. Chest x-ray showing cardiomegaly and the patient has a left subclavian triple-lumen catheter in place. Hemodynamically stable on no pressors. WBC count of 8.6 with a hemoglobin 8.5 and a platelet count of 217. BUN is 51 with a creatinine of 2.28 and a sodium level is at 141 and a bicarb level is at 17. The patient is moving all 4 extremities without any limitation. The patient is currently afebrile. Nephrology is on the case regarding MARYLOU which is probably secondary to ATN and has creatinine is being monitored. Fluid balance over the past 24 hours has been 250 cc positive and the patient shows no signs of any significant fluid overload. The patient is currently on IV Zosyn regarding the possibility of an aspiration/E. coli urinary tract infection and is stage III right heel wound. She remains on bronchodilators. She is on no pressors for now. No other significant events overnight. As mentioned, she was extubated yesterday and the chest x-ray shows distal stable left-sided pleural effusion. The echocardiogram that was done on 08/20/2023 showed a preserved left ventricular ejection fraction, no significant valvular abnormalities. The patient also had Doppler of the lower extremity on 08/25/2023 that revealed no evidence of any DVT. There was a prominent lymph node in the right groin measuring 2.6 cm in size. The patient did have a catheter in her right IJ at the time of admission that was removed and the cultures came back positive for corynebacterium. On today's evaluation of 08/27/2023, the patient is being seen for a follow-up. Patient is postcardiac arrest and the patient is having some signs of anoxic encephalopathy. She was restless and confused and somewhat agitated. Based on that, the patient was started on Precedex yesterday and Precedex is running at 0.4 mcg/kg/h. No significant agitation at this point in time. She seems to be calm and comfortable. She follows occasional simple commands. No agitation. No focal neurological deficits. She is currently on 2 L of oxygen nasal cannula and she is also on lactated Ringer at rate of 50 cc an hour. Urine output is in order of 30 cc an hour. Overall fluid balance has been +700 cc over the past 24 hours. The blood work shows a WC count of 8.2 with a hemoglobin 8.6 and a platelet count of 200, BUN is at 48 with a creatinine of 2.22 and a sodium level of 141. The serum bicarb level is at 18. A repeat limited echocardiogram was done yesterday and the patient showed improvement and in the LV function and the patient ejection fraction is in order of 55 to 60% without any significant segmental wall motion abnormalities. The patient is afebrile. The patient is hemodynamically stable at this point in time. Nephrology on the case regarding her chronic renal failure. On today's evaluation of 08/28/2023, the patient continues to require Precedex for increased agitation and restlessness. While off sedation, thrashes around. Currently she is calm and comfortable being on Precedex at 0.7 mcg/kg/h. She is on 3 L of oxygen by nasal cannula. No signs of any respiratory distress. No focal neurological deficits. She continues to complain of chest wall soreness and pain related to CPR and based on that the patient was given IV Tylenol and she is also [place] for pain control. WBC count is 7.1 with a hemoglobin of 8.7 and a platelet count of 214. BUN is at 50 with a creatinine of 2.45 and a sodium level of 140 with a potassium level of 5.1. She is afebrile. She is hemodynamically stable at this point in time. Progress note dated August 29, 2023. The patient is seen today in room 255, intensive care unit. The patient was extubated from mechanical ventilation on August 24. She continues on oxygen by nasal cannula at 2 L. She is getting saline at 50 cc an hour. She does continue on Zosyn. She also continues on dexmedetomidine at 0.4 mcg/kg/h, for ongoing restlessness and agitation. Current labs include a white count of 6, hemoglobin 8.4, hematocrit 27.4, and a normal platelet count. Sodium 144, pot assium 4.9, chlorides 117, CO2 18, BUN 54, creatinine 2.86. The patient's glucose was 103. Calcium is 7.6. Urine from August 21 with positive for Escherichia coli. Catheter tip, from August 22 with positive for Corynebacterium species. Reevaluated today on 09/04/2023, patient is about the same, remains in the ICU as an overflow, patient has intermittent episodes of agitation and restlessness, remains on Seroquel, remains on Ativan as needed, patient is requiring intermittent medications for sedation, she is not requiring any more Precedex. Patient has a bedside sitter, and she needs almost constant attention. Labs including CBC and basic metabolic profile are normal BUN however is 67 crea tinine 2.04 Reevaluated 09/05/2023, patient is about the same, continues to have intermittent episodes of agitation and restlessness, she is on D5W@50 mL/h she is also on Ativan 0 0.5 mg every 4 hours as needed intermittently receiving Lasix and she is on it now maintenance 40 mg IV push every 12 hours I cut it down to once a day. Continues to require sitter at bedside because of her intermittent episodes of agitations, today I added Risperdal 0.25 mg daily. WBC count is 6.5 hemoglobin 7.3 basic metabolic profile is normal BUN is 57 creatinine 1.89, improving Reevaluated on 09/06/2023, patient remains in the ICU, remains agitated intermittently, combative, when I evaluated the patient she was very calm and resting, sleeping, however apparently overnight the patient was extremely agitated and did not sleep much last night. Her Risperdal dose will be increased to 0.25 mg twice daily. The meantime patient is on many other medications to keep her calm and sedated. Patient has a sitter at bedside, does not seem to be in any distress labs today are unremarkable except hemoglobin of 7.6 basic metabolic profile is normal BUN is 52 creatinine 1.71 steadily improving over the last week Patient was reevaluated today on 09/07/2023, patient remains in the ICU, patient continues to have intermittent episodes of confusion, agitation, restlessness, does not seem to be in any respiratory distress, although her chest x-ray did show evidence of pulmonary edema and I recommended a dose of Lasix 40 mg IV push to be given now. Patient is on different types of medications to keep her calm, however does not seem to be helping, and now I am recommending a psychiatric consultation on this patient. WBC count is 6.0 hemoglobin 8.3 electrolytes are normal BUN is 40 creatinine 1.61, steadily improving. Patient is receiving Seroquel 150 twice daily she is also receiving Risperdal 0.25 twice daily, Ativan as needed but she is not requiring much Ativan. Patient is also on multiple cardiac meds. Patient was evaluated today on 09/08/2023, she is now out of the ICU, continues to have intermittent episodes of confusion and agitation, she has a sitter at bedside, today she seems to be [place]. Chest x-ray today showed evidence of worsening pulmonary edema although clinically the patient seems to be doing fine, hence I recommended increasing her Lasix up to 40 mg IV push twice daily. Patient is yet to be seen by psychiatry on consultation. WBC count is 3.4 hemoglobin 7.3 basic metabolic profile is normal BUN is 38 creatinine 1.54. Chest x-ray as noted earlier. Progress note dated September 09, 2023. The patient is seen today in room 356. She is currently on 4 L of oxygen. She is receiving Zosyn. The patient has episodes of confusion and agitation, and has had a sitter at the bedside, for quite some time. Currently, speech pathology is in the room with the patient, evaluating her ability to properly take food by mouth. Laboratory data includes a white count 4.7, hemoglobin 9.8, hematocrit 30.8, and a platelet count of 227,000. Sodium 143, potassium 3.5, chlorides 106, CO2 30, BUN 32, creatinine 1.53. Glucose is 143. Calcium is 8.3. Previous culture data shows urine positive for E. coli, August 21, and a catheter tip with corynebacterium species, from August 22. Chest x-ray from today shows some cardiomegaly, and mild pulmonary vascular congestion. Progress note dated September 10, 2023. The patient is seen today in room 356. She is currently on oxygen at 4 L. She is getting D5W at 50 cc an hour. The patient is much less agitated today. Still has a sitter. Current labs include a white count of 6, hemoglobin 9.5, hematocrit 31.4, and a normal platelet count. Sodium 140, potassium 3.7, chlorides 104, CO2 32, BUN 27, and creatinine 1.42. Glucose is 177. Calcium is 8.1. The patient's urine had evidence of Escherichia coli. The patient also had a catheter tip that was positive for Corynebacterium species. The patient's currently on Zosyn still. Progress note dated September 11, 2023. The patient was seen again in room 356. Currently, she is on 5 L of oxygen. She is getting D5W at 50 cc an hour. She is currently not on any antibiotic. She seems less agitated and restless today. Current labs include a glucose of 137. The patient denies any shortness of breath, coughing, wheezing, chest tightness, or phlegm production. She also denies any chest pain or pressure, palpitations, or fluttering in the chest. She denies any nausea, vomiting, vashti rrhea, or abdominal pain. Progress note dated September 12, 2023. The patient is seen today in room 356. A sitter is in the room with the patient. The patient is currently very agitated and restless. She is getting D5W at 50 cc an hour. Her nasal O2 was turned up to 7 L by high flow. We have asked psychiatry to come back and evaluate her for her agitation. Blood gases done yesterday show pO2 of 57, pCO2 49, pH is 7.45. That apparently was 40%, but it is unclear, if the patient was actually wearing her oxygen. Current labs include a white count 5.3, hemoglobin 9.1, hematocrit 30.6, and a normal platelet count. Sodium 135, potassium 3.9, chlorides 97, CO2 33, BUN 33, and creatinine 1.88. Glucose is 129. Calcium is 7.7. Chest x-ray done September 11, shows a diffuse hazy appearance over both lung bowen. Progress note dated September 13, 2023. The patient is seen today in room 356. A sitter is still present. Currently, the patient is on oxygen at 5 L by nasal cannula. She is not receiving any IV fluids. Labs include a white count 5.1, hemoglobin 9.5, hematocrit 30.3, and a normal platelet count. Sodium 134, potassium 3.6, chlorides 98, CO2 30, BUN 32, creatinine 1.6. Calcium is 8. Glucose is 81. Chest x-ray is compared to previous x-rays, and shows a stable examination. Objective - Vital Signs Vital signs: Vital Signs Temp 97.5 F L 09/13/23 09:13 Pulse 80 09/13/23 09:13 Resp 18 09/13/23 09:13 BP 177/88 09/13/23 09:13 Pulse Ox 98 09/13/23 09:13 FiO2 3 09/02/23 04:00 Intake & Output 09/12/23 09/13/23 09/13/23 18:59 06:59 18:59 Intake Total 0 200 10 Output Total 500 Balance 0 -300 10 Weight 57.5 kg Intake: IV 10 Invasive Line 9 10 Oral 0 200 Output: Urine 500 Other: Voiding Method Indwelling Catheter Indwelling Catheter Indwelling Catheter # Voids 0 # Bowel Movements 0 1 ABP, PAP, CO, CI - Last Documented Arterial Blood Pressure 125/73 - Exam No acute distress, currently on nasal O2 at 5 L. HEENT examination is grossly unremarkable. Neck supple. Full range of motion. No adenopathy thyromegaly or neck vein distention. Cardiovascular examination reveals regular rhythm rate. S1-S2 normal. No S3 or S4. No discernible murmur noted. Heart sounds are distant. Heart rate 79 bpm. Lungs reveal scattered bilateral rhonchi. No wheezes or crackles. Breath sounds equal bilaterally. Saturation is 98 %. Abdomen soft with bowel sounds. Extremities are intact. No cyanosis clubbing or edema. Skin is without rash or lesion. Neurologic examination is brief but nonfocal. Patient is much more calm today. - Labs CBC & Chem 7: 09/13/23 07:30 09/13/23 07:30 Labs: Abnormal Lab Results - Last 24 Hours (Table) 09/12/23 09/12/23 09/13/23 Range/Units 11:22 20:13 07:30 RBC (3.80-5.40) m/uL Hgb (11.4-16.0) gm/dL Hct (34.0-46.0) % RDW (11.5-15.5) % Sodium 134 L (137-145) mmol/L BUN 32 H (7-17) mg/dL Creatinine 1.60 H (0.52-1.04) mg/dL POC Glucose (mg/dL) 131 H 137 H (70-110) mg/dL Calcium 8.0 L (8.4-10.2) mg/dL Stool Occult Blood (Negative) 09/13/23 09/13/23 Range/Units 07:30 09:00 RBC 3.25 L (3.80-5.40) m/uL Hgb 9.5 L (11.4-16.0) gm/dL Hct 30.3 L (34.0-46.0) % RDW 17.0 H (11.5-15.5) % Sodium (137-145) mmol/L BUN (7-17) mg/dL Creatinine (0.52-1.04) mg/dL POC Glucose (mg/dL) (70-110) mg/dL Calcium (8.4-10.2) mg/dL Stool Occult Blood Positive H (Negative) Assessment and Plan Assessment: Cardiopulmonary arrest, x 2, with cardiopulmonary resuscitation, and return of spontaneous circulation on 08/23/23. Acute hypoxic respiratory failure, postcardiac arrest. S/P intubation, and mechanical ventilation, secondary to cardiopulmonary arrest, August 23, 2023. She was extubated on 08/25/23. Encephalopathy. History of congestive heart failure (HFPEF) Coronary artery disease/cardiomyopathy and the patient is post non-ST segment elevation myocardial infarction. Stage III chronic kidney disease. Right heel pressure ulcer, stage III. Subacute fracture of the medial and lateral malleolus. History of hypertension. History of hyperlipidemia. History of type 2 diabetes mellitus. History of severe pulmonary hypertension. History of COPD. History of peripheral neuropathy. Chest wall pain related to CPR. Plan: Plan dated August 23, 2023. The patient is seen in the intensive care unit, room 255. I came in early this morning to place an arterial line, and the internal jugular triple-lumen catheter. The patient had poor IV access. The patient is currently on norepinephrine at 1.4 mcg/min. He is getting saline at [address] A [address] scan of the brain, was negative. The patient blood gases show pO2 of 75, pCO2 of 49, pH of 7.44. We will continue to follow make recommendations along the way. The patient's overall prognosis remains very guarded. The patient continues on ceftriaxone, and fluconazole. Prognosis is guarded. Plan dated August 24, 2023. The patient is seen today in room 255. She remains on mechanical ventilator. The urine is showing evidence of Escherichia coli. The patient continues on Zosyn. The patient's EEG shows slowing, consistent with severe encephalopathy. There was no evidence of any seizure activity. Labs, x-rays, and all medications are reviewed. We will continue to follow the patient, make recommendations along the way. The patient's overall prognosis remains very guarded. Today we make some ventilator changes, including dropping the tidal volume down from 400, down to 350, and the FiO2, being reduced to 40%, for 50%. Plan dated August 25, 2023. The patient is seen today in room 255. She remains on the mechanical ventilator. Today, we will do a daily interruption of sedation, and a spontaneous breathing trial. Dopplers of the lower extremities were negative. She remains on Zosyn for Escherichia coli urinary tract infection. Overnight she developed bradycardia. For that she was started on dopamine by cardiology. The patient is getting saline at 50 cc an hour, propofol at 35 mcg/kg/min. Blood gases are reasonable. Will place the patient on PSV 5, CPAP 5, get some weaning parameters, and see if we can extubate the patient. We will continue to follow. Labs, x-rays, and medications are reviewed. Prognosis is guarded. Plan dated August 29, 2023. The patient will continue with dexmedetomidine, and hopefully, it will be gradually weaned off. The patient was started on Seroquel, 100 mg twice a day. The patient is currently hemodynamically stable, with no need for vasopressors. Cardiac rhythm is also stable. A repeat echocardiogram has been ordered. The patient is on [place] for pain control. Also, the patient continues on Zosyn. Other medications include Lipitor, Norvasc, and Imdur, as well as subcutaneous heparin for DVT prophylaxis. We will continue to monitor, in the intensive care unit. Prognosis is certainly very guarded. Neurologic status is of a concern. Appreciate input by neurology. Plan dated September 09, 2023. The patient is seen today in room 356. The patient continues on Zosyn. The patient is on 4 L of oxygen. There is a sitter at the bedside. She continues on appropriate medications including Risperdal and Seroquel. In addition, the patient continues on GI prophylaxis, and DVT prophylaxis. Though Zosyn is primarily for the cellulitis. We will continue to follow make recommendations along the way. Prognosis is guarded. She does have intermittent episodes of confusion agitation, and yelling out. Plan dated September 10, 2023. The patient is seen today in room 356. The patient still has a sitter. The patient is currently on 4 L. She continues on Zosyn. She is getting D5W at 50 cc an hour. Labs, x-rays, and medications are reviewed. She continues on appropriate medications. We will continue to follow make recommendations along the way. Prognosis is guarded. She is a bit more alert, and less agitated today. Plan dated September 11, 2023. The patient is no longer on antibiotics. She is on oxygen, between 4 to 5 L by nasal cannula. She is getting D5W at 50 cc an hour. No new labs today. She is apparently doing better, and less agitated, less confusion. We will continue to follow. Prognosis is guarded. Labs, x-rays, and all medications are reviewed. Plan dated September 12, 2023. The patient is currently quite agitated. We have asked psychiatry to come back and evaluate the patient, to see if there is anything more they can add, for the patient's restlessness, and agitation. She is currently on 7 L high flow nasal O2. She is given D5W at 50 cc an hour. Blood gases from yesterday have been reviewed. Labs, x-rays, medications are reviewed. We will continue to follow make recommendations along the way. Prognosis is guarded. Plan dated September 13, 2023. The patient seems to be much more calm today. Labs, x-rays, medications are reviewed. She has been weaned down to 5 L by nasal cannula. We will continue to follow the patient, make recommendations. She is not receiving any IV flu ids. Patient's overall prognosis remains guarded. Her mental status seems to be better today, and she seems much more calm, much less agitated. Nonetheless, a sitter is still present. Time with Patient: Less than 30
[2023-09-13 11:58] LABS: Glucose,Whole Blood 95 mg/dL (70-110)
--- NOTE | 2023-09-13 12:02 | P.GSCN ---
History of Present Illness Consult date: 09/13/23 History of present illness: CHIEF COMPLAINT: Shortness of breath HISTORY OF PRESENT ILLNESS: This is a 58-year-old female who presented to the hospital with shortness of breath and evidence of pulmonary edema. She has multiple medical problems and prolonged hospitalization. She had cardiopulmonary arrest x 2. She did require to be intubated and on mechanical ventilation for 3 days. She was treated for CHF exacerbation. She has history of ischemic cardiomyopathy, severe pulmonary hypertension and COPD. Patient had recent heart catheterization with stent placement in May 2023. She is on Plavix and aspirin. Patient had 1 large black stool this morning per nursing staff. Patient is a poor historian and is confused. Patient does report no abdominal pain. Denies any vomiting. She does report occasional nausea. Patient thinks she had a EGD about 10 years ago and colonoscopy several years ago does not remember any abnormalities on either test. Patient had a stool for occult blood positive and hemoglobin did go up from 9.1-9.5. PAST MEDICAL HISTORY: Diabetes mellitus, hyperlipidemia,, hypertension, CHF, ischemic cardiomyopathy, chronic kidney disease severe pulmonary hypertension, COPD, peripheral neuropathy, anemia PAST SURGICAL HISTORY: See below MEDICATIONS: See below ALLERGIES: See below SOCIAL HISTORY: No illicit drug use. REVIEW OF SYSTEMS: CONSTITUTIONAL: Denies fever or chills. HEENT: Denies blurred vision, vision changes, or eye pain. Denies hemoptysis CARDIOVASCULAR: Denies chest pain or pressure. RESPIRATORY: No shortness of breath. GASTROINTESTINAL: See HPI for pertinent findings HEMATOLOGIC: Denies bleeding disorders. GENITOURINARY: Denies any blood in urine or increased urinary frequency. SKIN: Denies pruitis. Denies rash. PHYSICAL EXAM: VITAL SIGNS: Reviewed GENERAL: Well-developed in no acute distress. HEENT: No sclera icterus. Extraocular movements grossly intact. Moist buccal mucosa. Head is atraumatic, normocephalic. No nasal drainage. ABDOMEN: Soft. Nondistended. Nontender NEUROLOGIC: Awake. Confused LABORATORY DATA: WBC 5.1 hgb 9.5 plt 258 Na 134 K 3.6 Cr 1.60 Stool for occult blood positive IMAGING: Chest x-ray stable exam with diffuse haziness of the lungs ASSESSMENT: 1. Acute GI bleed with 1 large melanotic stool 2. Cardiopulmonary arrest x 2 3. CHF exacerbation 4. Severe pulmonary hypertension 5. History of coronary disease with cardiac stent placed in June 24, 2023 PLAN: -Plan for EGD on 09/16/[address] Marlow if patient is stable -Repeat CBC. Patient had a second large black stool -Hold Plavix, Aspirin and subcu heparin -Increase IV Protonix to twice a day -Continue to monitor hemoglobin -Continue to monitor any signs or symptoms of bleeding Physician Safety Intern note has been reviewed by physician. Signing provider agrees with the documented findings, assessment, and plan of care. Past Medical History Past Medical History: Diabetes Mellitus, Hyperlipidemia, Hypertension, Renal Disease Additional Past Medical History / Comment(s): restless leg, neurothopy, G u[place], dialysis History of Any Multi-Drug Resistant Organisms: None Reported Past Surgical History: Orthopedic Surgery, Tonsillectomy Additional Past Surgical History / Comment(s): "plate in left leg to straighten leg as a child" - plate removed, right total hip replacement due to a fracture from a fall, dialysis Past Anesthesia/Blood Transfusion Reactions: No Reported Reaction Past Psychological History: No Psychological Hx Reported Smoking Status: Former smoker Past Alcohol Use History: None Reported Past Drug Use History: None Reported Medications and Allergies Home Medications Medication Instructions Recorded Confirmed Type Dapagliflozin Propanediol [Farxiga] 5 mg PO DAILY 04/17/23 08/19/23 History Ezetimibe [Zetia] 10 mg PO DAILY 04/17/23 08/19/23 History Multivitamins, Thera [Multivitamin 1 tab PO DAILY 04/17/23 08/19/23 History (formulary)] rOPINIRole HCL [Requip] 1 mg PO HS 04/17/23 08/19/23 History Acetaminophen Tab [Tylenol] 500 mg PO Q6HR PRN tab 05/24/23 08/19/23 Rx Torsemide [Demadex] 40 mg PO DAILY 90 Days #90 tab 05/24/23 08/19/23 Rx Aspirin 81 mg PO DAILY 90 Days #90 tab 06/25/23 08/19/23 Rx Atorvastatin [Lipitor] 40 mg PO DAILY 90 Days #90 06/25/23 08/19/23 Rx Clopidogrel [Plavix] 75 mg PO DAILY 90 Days #90 tab 06/25/23 08/19/23 Rx Budesonide [Pulmicort] 0.5 mg INHALATION RT-BID PRN 08/19/23 08/19/23 History Diclofenac Sodium [Voltaren] 75 mg PO BID 08/19/23 08/19/23 History Gabapentin 600 mg PO QID 08/19/23 08/19/23 History INSULIN ASPART (NovoLOG) [NovoLOG 10 unit SQ AC-TID 08/19/23 08/19/23 History (formulary)] Isosorbide Mononitrate ER [Imdur] 15 mg PO DAILY 08/19/23 08/19/23 History Spironolactone [Aldactone] 25 mg PO DAILY 08/19/23 08/19/23 History hydrALAZINE HCL [Apresoline] 25 mg PO TID 08/19/23 08/19/23 History lisinopriL [Zestril] 10 mg PO DAILY 08/19/23 08/19/23 History Allergies Allergy/AdvReac Type Severity Reaction Status Date / Time No Known Allergies Allergy Verified 08/19/23 13:55 Surgical - Exam Vital Signs Temp Pulse Resp BP 97.8 F 89 18 166/78 08/19/23 12:11 08/19/23 12:11 08/19/23 12:11 08/19/23 12:11 Results - Labs 09/13/23 07:30 09/13/23 07:30 Abnormal Lab Results - Last 24 Hours (Table) 09/12/23 09/12/23 09/13/23 Range/Units 11:22 20:13 07:30 RBC (3.80-5.40) m/uL Hgb (11.4-16.0) gm/dL Hct (34.0-46.0) % RDW (11.5-15.5) % Sodium 134 L (137-145) mmol/L BUN 32 H (7-17) mg/dL Creatinine 1.60 H (0.52-1.04) mg/dL POC Glucose (mg/dL) 131 H 137 H (70-110) mg/dL Calcium 8.0 L (8.4-10.2) mg/dL Stool Occult Blood (Negative) 09/13/23 09/13/23 Range/Units 07:30 09:00 RBC 3.25 L (3.80-5.40) m/uL Hgb 9.5 L (11.4-16.0) gm/dL Hct 30.3 L (34.0-46.0) % RDW 17.0 H (11.5-15.5) % Sodium (137-145) mmol/L BUN (7-17) mg/dL Creatinine (0.52-1.04) mg/dL POC Glucose (mg/dL) (70-110) mg/dL Calcium (8.4-10.2) mg/dL Stool Occult Blood Positive H (Negative) Diabetes panel 09/13/23 Range/Units 07:30 Sodium 134 L (137-145) mmol/L Potassium 3.6 (3.5-5.1) mmol/L Chloride 98 (98-107) mmol/L Carbon Dioxide 30 (22-30) mmol/L BUN 32 H (7-17) mg/dL Creatinine 1.60 H (0.52-1.04) mg/dL Glucose 81 (74-99) mg/dL Calcium 8.0 L (8.4-10.2) mg/dL Calcium panel 09/13/23 Range/Units 07:30 Calcium 8.0 L (8.4-10.2) mg/dL Pituitary panel 09/13/23 Range/Units 07:30 Sodium 134 L (137-145) mmol/L Potassium 3.6 (3.5-5.1) mmol/L Chloride 98 (98-107) mmol/L Carbon Dioxide 30 (22-30) mmol/L BUN 32 H (7-17) mg/dL Creatinine 1.60 H (0.52-1.04) mg/dL Glucose 81 (74-99) mg/dL Calcium 8.0 L (8.4-10.2) mg/dL Adrenal panel 09/13/23 Range/Units 07:30 Sodium 134 L (137-145) mmol/L Potassium 3.6 (3.5-5.1) mmol/L Chloride 98 (98-107) mmol/L Carbon Dioxide 30 (22-30) mmol/L BUN 32 H (7-17) mg/dL Creatinine 1.60 H (0.52-1.04) mg/dL Glucose 81 (74-99) mg/dL Calcium 8.0 L (8.4-10.2) mg/dL
[2023-09-13] MEDS: OLANZapine ODT 5 MG TAB PO PRN (12:08)
[2023-09-13 14:00] LABS: Anisocytosis Slight; Basophils # (A) 0.1 k/uL (0-0.2); Basophils % (A) 1 %; Eosinophils # (A) 0.2 k/uL (0-0.7); Eosinophils % (A) 4 %; HCT 31.1 % (34.0-46.0); HGB 9.6 gm/dL (11.4-16.0); Hypochromasia Moderate; Lymphocytes # (A) 0.7 k/uL (1.0-4.8); Lymphocytes % (A) 14 %; MCH 28.6 pg (25.0-35.0); MCHC 30.7 g/dL (31.0-37.0); MCV 93.2 fL (80.0-100.0); Mean Platelet Volume 8.8; Monocytes # (A) 0.4 k/uL (0-1.0); Monocytes % (A) 8 %; Neutrophils # (A) 3.5 k/uL (1.3-7.7); Neutrophils % (A) 71 %; Platelet Count 288 k/uL (150-450); Poikilocytosis Slight; RBC 3.34 m/uL (3.80-5.40); RDW 16.8 % (11.5-15.5); WBC 4.9 k/uL (3.8-10.6)
--- NOTE | 2023-09-13 15:31 | P.PN ---
Subjective Progress Note Date: 09/13/23 Principal diagnosis: Reason for follow-up is right heel diabetic foot ulcer Patient is a 57-year-old female with a past medical history significant for diabetes mellitus hypertension hyperlipidemia history of renal insufficiency requiring dialysis currently not on dialysis and the patient also have a chronic nonhealing wound to the right heel area, present to the hospital with increasing shortness of breath and swelling concerning for fluid overload.Patient did have a cardiac arrest around 4 AM 08/23/2023 with the patient went into asystole got resuscitated intubated and transferred to the ICU subsequently have another cardiac arrest with PEA rhythm not resuscitated. On today's evaluation that is 09/13/2023, Patient is afebrile patient is currently on 5 L nasal cannula oxygen and denies having any shortness of breath, the patient denies any chest pain or cough, the patient denies any nausea vomiting did not have any abdominal pain apparently did have blood in her stool as reported by the nursing staff, nursing staff reporting some purulent drainage from previous right chest wall dialysis catheter site and there is a stitch left. Patient white count is 4.9 Objective - Vital Signs Vital signs: Vital Signs Temp 97.5 F L 09/13/23 09:13 Pulse 78 09/13/23 12:36 Resp 16 09/13/23 12:36 BP 160/98 09/13/23 12:36 Pulse Ox 94 L 09/13/23 12:36 FiO2 3 09/02/23 04:00 Intake & Output 09/12/23 09/13/23 09/13/23 18:59 06:59 18:59 Intake Total 0 200 10 Output Total 500 600 Balance 0 -300 -590 Weight 57.5 kg Intake: IV 10 Invasive Line 9 10 Oral 0 200 Output: Urine 500 600 Other: Voiding Method Indwelling Catheter Indwelling Catheter Indwelling Catheter # Voids 0 # Bowel Movements 0 1 ABP, PAP, CO, CI - Last Documented Arterial Blood Pressure 125/73 - Exam GENERAL DESCRIPTION: Middle-aged female lying in bed in no distress RESPIRATORY SYSTEM: Unlabored breathing , decreased breath sounds at bases HEART: S1 S2 regular rate and rhythm , ABDOMEN: Soft , no tenderness EXTREMITIES: Right heel wound is currently dressed no drainage - Labs CBC & Chem 7: 09/13/23 12:50 09/13/23 07:30 Labs: Abnormal Lab Results - Last 24 Hours (Table) 09/12/23 09/13/23 09/13/23 Range/Units 20:13 07:30 07:30 RBC 3.25 L (3.80-5.40) m/uL Hgb 9.5 L (11.4-16.0) gm/dL Hct 30.3 L (34.0-46.0) % RDW 17.0 H (11.5-15.5) % Sodium 134 L (137-145) mmol/L BUN 32 H (7-17) mg/dL Creatinine 1.60 H (0.52-1.04) mg/dL POC Glucose (mg/dL) 137 H (70-110) mg/dL Calcium 8.0 L (8.4-10.2) mg/dL Stool Occult Blood (Negative) 09/13/23 Range/Units 09:00 RBC (3.80-5.40) m/uL Hgb (11.4-16.0) gm/dL Hct (34.0-46.0) % RDW (11.5-15.5) % Sodium (137-145) mmol/L BUN (7-17) mg/dL Creatinine (0.52-1.04) mg/dL POC Glucose (mg/dL) (70-110) mg/dL Calcium (8.4-10.2) mg/dL Stool Occult Blood Positive H (Negative) Assessment and Plan (1) Pressure ulcer of right heel, stage 3 Current Visit: No Status: Acute Code(s): L89.613 - PRESSURE ULCER OF RIGHT HEEL, STAGE 3 SNOMED Code(s): 72943521637206 (2) Type 2 diabetes mellitus with foot ulcer Current Visit: No Status: Acute Code(s): E11.621 - TYPE 2 DIABETES MELLITUS WITH FOOT ULCER; L97.509 - NON-PRESSURE CHRONIC ULCER OTH PRT UNSP FOOT W UNSP SEVERITY SNOMED Code(s): 962135847 (3) UTI (urinary tract infection) Current Visit: Yes Status: Acute Code(s): N39.0 - URINARY TRACT INFECTION, SITE NOT SPECIFIED SNOMED Code(s): 33498043 (4) Aspiration pneumonia Current Visit: Yes Status: Acute Code(s): J69.0 - PNEUMONITIS DUE TO INHALATION OF FOOD AND VOMIT SNOMED Code(s): 917178332 Plan: 1patient with chronic nonhealing wound to the right heel area which has been there for a couple of months now patient overall wound base looks clean with no slough tissue in the wound base 2-patient did have cardiac arrest requiring resuscitation in this patient who did have a chest x-ray with a right-sided infiltrate and question of aspiration pneumonia, the patient urine culture grew E. coli with some resistant pattern, sputum has been negative blood culture has been negative catheter tip cultures growing corynebacterium species more likely contamination with repeat blood culture negative 3the patient right heel wound is healing with no evidence of any cellulitis, patient to continue local wound care with Aquacel silver dressing change every 48 hours 4-patient did have cellulitis to the previous dialysis catheter site and some purulent drainage reported by nursing staff has been advised to obtain culture we will add daptomycin and monitor closely Dictation was produced using [employer] dictation software. please excuse any grammatical, word or spelling errors. Time with Patient: Less than 30
[2023-09-13 16:54] LABS: Glucose,Whole Blood 134 mg/dL (70-110)
[2023-09-13 20:52] LABS: Glucose,Whole Blood 114 mg/dL (70-110)
[2023-09-13] MEDS: PANTOPRAZOLE 40 MG/10 ML VIAL IVP SCH (22:25)
--- NOTE | 2023-09-14 04:59 | P.PN ---
Subjective Progress Note Date: 09/14/23 History of Present Illness: The patient is a 57-year-old female with known history of hypertension, hyperl ipidemia, diabetes mellitus as well as a history of coronary disease status post stenting of the RCA and chronic kidney disease who presented with dyspnea and had a cardiopulmonary arrest requiring CPR and mechanical ventilation. She is extubated, complaining of chest wall tenderness post CPR. She continues to be in sinus mechanism and hemodynamically stable. She had some bradycardia earlier and was started on IV dopamine. She is in sinus mechanism with no further bradycardia. Her urinary output has been stable. Her initial echo on presentation showed a preserved systolic function subsequently was found to have cardiomyopathy but that was done shortly after the event. She has a subacute fracture of the medial and lateral malleolus on the right side. August 26: The patient is sedated, she was quite agitated during the night. She had few episodes of sinus bradycardia, brief. She had no evidence of high-grade AV block. Her urinary output is stable. Her blood pressure is under good control without any vasopressors. Her repeat echocardiogram showed a preserved systolic function. She has been evaluated by neurology for possible anoxic encephalopathy. August 1: The patient is awake, confused. In sinus mechanism with no further episodes of high-grade AV block. Her blood pressure is stable. Her urinary output stable. There is no evidence of atrial fibrillation or ventricular ectopic activity. Repeat echocardiogram showed a normal left ventricle systolic function. August 28: The patient is sedated. She was agitated and confused during the night. She had no further episodes of bradycardia arrhythmia. Her blood pressure has been stable. She continues to be intubated. She is undergoing an EEG to evaluate her neurological status. There is no evidence of atrial fibrillation or ventricular tachyarrhythmia. August 29: The patient is more awake continues to have some episodes of confusion. She continues to be in sinus mechanism with no arrhythmia. Her EEG showed some i mprovement. Her urinary output has been good. Her blood pressure is stable and there is no evidence of significant hypotension. September 14, 2023 Seen and examined at bedside this a.m. Patient is confused and is in delirium state. She is needing a sitter to be present to calm her down. Mild volume overload Physical Examination: 57-year-old female, awake with some confusion, improved,Blood pressure 147/60, Heart rate 80 Head: Normocephalic. Eyes: Sclerae nonicteric. Neck: Good carotid upstroke, no bruit, mild elevated jugular venous distention. Lungs: Clear anteriorly Heart: Regular rate and rhythm, S1-S2, no S3, no rub. No murmur. Abdomen: Soft , positive bowel sounds no organomegaly. Extremities: 1+ pitting edema bilateral lower extremity, cast on the right lower extremity Impression: 1. Status post cardiopulmonary arrest, etiology unclear. No clear evidence of acute ischemic event. 2. Status post stenting of the RCA during prior admission 3. Chronic kidney disease 4. Chest wall discomfort, stable 5. History of hyperlipidemia 6. History of hypertension 7. Bradycardia resolved 8. History of diabetes 9. Cardiomyopathy resolved 10. Anoxic encephalopathy, postarrest, improving 11. Delirium 12. Black tarry stools, concern of GI bleeding Plan: Start aspirin 81 mg because patient had a PCI done in May 2023. We are holding Plavix because of doctorly stools and anemia. Patient is at moderate cardiovascular risk for anesthesia and EGD. Should proceed with caution, but in clinical context EGD is needed to rule out any GI bleeding and if no GI bleeding is present, patient should be placed back on DAPT therapy because of recent PCI in May 2023. Patient is on limited cardiac medications which includes Lasix 40 mg IV daily, Imdur 30 mg daily, metoprolol 12.5 mg twice daily, Objective - Vital Signs Vital signs: Vital Signs Temp 97.5 F L 09/13/23 23:49 Pulse 82 09/14/23 03:14 Resp 18 09/14/23 03:14 BP 129/64 09/14/23 03:14 Pulse Ox 92 L 09/14/23 03:14 FiO2 3 09/02/23 04:00 Intake & Output 09/13/23 09/13/23 09/14/23 06:59 18:59 06:59 Intake Total 200 20 10 Output Total 500 600 950 Balance -300 -580 -940 Intake: IV 20 10 Invasive Line 9 20 10 Oral 200 Output: Urine 500 600 950 Other: Voiding Method Indwelling Catheter Indwelling Catheter Indwelling Catheter # Bowel Movements 1 1 ABP, PAP, CO, CI - Last Documented Arterial Blood Pressure 125/73 - Labs CBC & Chem 7: 09/13/23 12:50 09/13/23 07:30 Labs: Abnormal Lab Results - Last 24 Hours (Table) 09/13/23 09/13/23 09/13/23 Range/Units 07:30 07:30 09:00 RBC 3.25 L (3.80-5.40) m/uL Hgb 9.5 L (11.4-16.0) gm/dL Hct 30.3 L (34.0-46.0) % MCHC (31.0-37.0) g/dL RDW 17.0 H (11.5-15.5) % Lymphocytes # (1.0-4.8) k/uL Sodium 134 L (137-145) mmol/L BUN 32 H (7-17) mg/dL Creatinine 1.60 H (0.52-1.04) mg/dL POC Glucose (mg/dL) (70-110) mg/dL Calcium 8.0 L (8.4-10.2) mg/dL Stool Occult Blood Positive H (Negative) 09/13/23 09/13/23 09/13/23 Range/Units 12:50 16:52 20:51 RBC 3.34 L (3.80-5.40) m/uL Hgb 9.6 L (11.4-16.0) gm/dL Hct 31.1 L (34.0-46.0) % MCHC 30.7 L (31.0-37.0) g/dL RDW 16.8 H (11.5-15.5) % Lymphocytes # 0.7 L (1.0-4.8) k/uL Sodium (137-145) mmol/L BUN (7-17) mg/dL Creatinine (0.52-1.04) mg/dL POC Glucose (mg/dL) 134 H 114 H (70-110) mg/dL Calcium (8.4-10.2) mg/dL Stool Occult Blood (Negative)
--- NOTE | 2023-09-14 05:45 | P.PN ---
Subjective Progress Note Date: 09/13/23 57-year-old female came in with complaints of shortness of breath and orthopnea found to be in congestive heart failure exacerbation patient has congestive heart failure with reduced ejection fraction in the past patient has increasing pedal edema. Patient also has an ulcer in the right foot stage III-IV which appeared to be infected we will consult wound care and infectious disease. Patient was on hemodialysis during last hospitalization her creatinine presently is 1.5 which is significantly improved patient potassium is 5.5, patient is on Entresto and Aldactone Aldactone will be held Entresto will be continued since she is receiving IV Lasix and expecting her potassium to improve if it does not improve or get worse then Entresto need to be discontinued as well. Patient has hypervolemic hyponatremia and hyperglycemia. 08/21/2023 Was evaluated today on the medical floor. Patient was continued on IV Lasix overnight however she was no longer reporting any shortness of breath and her lower extremity edema has improved. She was taken off of the Lasix at this time due to increased creatinine up to 2.31 additionally potassium remains elevated at 5.7. Echocardiogram comes back showing an improved ejection fraction of 60 to 65% because of this and also the hyperkalemia patient will not be continued on entresto. Patient was evaluated by infectious disease who felt like that heel ulcer on the right side was more likely a pressure injury stage III and is recommending local wound care to continue with Aquacel. Patient is reporting significant pain to the right foot and feels like it is fractured. Upon review of the patient's chart she did have a x-ray completed of this 12 days ago ordered by her inclusion teacher Dr. Mayen. Ankle x-ray did review a mildly displaced acute distal fibular fracture. Repeat x-ray of the foot and ankle completed today does reveal a subacute fractures of the medial and lateral malleolus. The lateral malleolus fracture was seen on the patient's prior exam the medial malleolus fracture may be new in the interval and this would be considered an unstable ankle fracture. There is interval 6 mm displacement of the lateral malleolus. There is a deep soft tissue ulcer at the plantar heel with no clear radiographic findings of a contagious osteomyelitis at this time. Orthooedics was consulted for this. 08/22/2023 Patient evaluated in follow-up today resting in bed. She was taken off of the Lasix remains off at this time. Bladder scan was requested and not done yesterday to rule out urinary retention, creatinine today is increased up to 2.56. Bladder scan was done require urinary straight catheterization of 550 mL taken out. Urinalysis was sent which is significantly abnormal. Patient is also noted to have multiple genital lesions which appear wartlike she admits to not having any routine gynecological screenings for many years. She is not having any vaginal bleeding or discharge. Renal ultrasound has been ordered to rule out any obstructive uropathy. 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 Patient upon arrival to the intensive care unit had another episode of cardiac arrest patient had bradycardia while on pressors in the ICU patient was intubated following the first cardiac arrest and is currently on the mechanical ventilator 50% FiO2. Chest x-ray showing similar interstitial and patchy component airspace disease right greater than left. There is a possible trace left pleural effusion. A brain CT which shows no acute intracranial process. Blood work today shows a white blood cell count of 13.8, hemoglobin 9.5, sodium level of 135, BUN of 62, creatinine of 2.76. AST ALT and alk phosphatase are significantly elevated consistent with a shock liver. TSH 3.310. Urinalysis is abnormal. Her urine culture is showing gram-negative bacilli patient is covered for the urinary tract infection as well as aspiration with IV Zosyn being managed by infectious disease. Patient is currently sedated with propofol and did require vasopressor support with Levophed which has been weaned at this time. Will discontinue the gabapentin patient is continued on aspirin Plavix and statin has been placed on hold. There is concern for possible arrhythmia precipitating the asystole additionally we need to rule out embolism and a D-dimer has been ordered. 08/24/2023 Patient is seen in follow-up today continues in the ICU on mechanical ventilation. FiO2 is 50% although titrating and was just placed at 40% with a PEEP of 5. Chest x-ray today shows that the ET tube is 7 mm from the sonam suggesting a pulled back 2 cm and reassess and also suspected underlying vascular congestion. Neuro is following and per nursing staff patient is following some simple commands and undergoing sedation holidays. Patient noted to have reduced EF of 30 to 35% and cardiology had been following. Will reconsult and appreciate input and recommendations. patient did have dialysis catheter removed and sent for cultures which are pending. Infectious disease following and patient is maintained on antibiotic. D-dimer is elevated above 16 and will attempt to obtain a VQ scan.57-year-old female came in with complaints of shortness of breath and orthopnea found to be in congestive heart failure exacerbation patient has congestive heart failure with reduced ejection fraction in the past patient has increasing pedal edema. Patient also has an ulcer in the right foot stage III-IV which appeared to be infected we will consult wound care and infectious disease. Patient was on hemodialysis during last hospitalization her creatinine presently is 1.5 which is significantly improved patient potassium is 5.5, patient is on Entresto and Aldactone Aldactone will be held Entresto will be continued since she is receiving IV Lasix and expecting her potassium to improve if it does not improve or get worse then Entresto need to be discontinued as well. Patient has hypervolemic hyponatremia and hyperglycemia. 08/21/2023 Was evaluated today on the medical floor. Patient was continued on IV Lasix overnight however she was no longer reporting any shortness of breath and her lower extremity edema has improved. She was taken off of the Lasix at this time due to increased creatinine up to 2.31 additionally potassium remains elevated at 5.7. Echocardiogram comes back showing an improved ejection fraction of 60 to 65% because of this and also the hyperkalemia patient will not be continued on entresto. Patient was evaluated by infectious disease who felt like that heel ulcer on the right side was more likely a pressure injury stage III and is recommending local wound care to continue with Aquacel. Patient is reporting significant pain to the right foot and feels like it is fractured. Upon review of the patient's chart she did have a x-ray completed of this 12 days ago ordered by her inclusion teacher Dr. Mayen. Ankle x-ray did review a mildly displaced acute distal fibular fracture. Repeat x-ray of the foot and ankle completed today does reveal a subacute fractures of the medial and lateral malleolus. The lateral malleolus fracture was seen on the patient's prior exam the medial malleolus fracture may be new in the interval and this would be considered an unstable ankle fracture. There is interval 6 mm displacement of the lateral malleolus. There is a deep soft tissue ulcer at the plantar heel with no clear radiographic findings of a contagious osteomyelitis at this time. Orthooedics was consulted for this. 08/22/2023 Patient evaluated in follow-up today resting in bed. She was taken off of the Lasix remains off at this time. Bladder scan was requested and not done yesterday to rule out urinary retention, creatinine today is increased up to 2.56. Bladder scan was done require urinary straight catheterization of 550 mL taken out. Urinalysis was sent which is significantly abnormal. Patient is also noted to have multiple genital lesions which appear wartlike she admits to not having any routine gynecological screenings for many years. She is not having any vaginal bleeding or discharge. Renal ultrasound has been ordered to rule out any obstructive uropathy. 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 Patient upon arrival to the intensive care unit had another episode of cardiac arrest patient had bradycardia while on pressors in the ICU patient was intubated following the first cardiac arrest and is currently on the mechanical ventilator 50% FiO2. Chest x-ray showing similar interstitial and patchy component airspace disease right greater than left. There is a possible trace left pleural effusion. A brain CT which shows no acute intracranial process. Blood work today shows a white blood cell count of 13.8, hemoglobin 9.5, sodium level of 135, BUN of 62, creatinine of 2.76. AST ALT and alk phosphatase are significantly elevated consistent with a shock liver. TSH 3.310. Urinalysis is abnormal. Her urine culture is showing gram-negative bacilli patient is covered for the urinary tract infection as well as aspiration with IV Zosyn being managed by infectious disease. Patient is currently sedated with propofol and did require vasopressor support with Levophed which has been weaned at this time. Will discontinue the gabapentin patient is continued on aspirin Plavix and statin has been placed on hold. There is concern for possible arrhythmia precipitating the asystole additionally we need to rule out embolism and a D-dimer has been ordered. 08/24/2023 Patient is seen in follow-up today continues in the ICU on mechanical ventil ation. FiO2 is 50% although titrating and was just placed at 40% with a PEEP of 5. Chest x-ray today shows that the ET tube is 7 mm from the sonam suggesting a pulled back 2 cm and reassess and also suspected underlying vascular congestion. Neuro is following and per nursing staff patient is following some simple commands and undergoing sedation holidays. Patient noted to have reduced EF of 30 to 35% and cardiology had been following. Will reconsult and appreciate input and recommendations. patient did have dialysis catheter removed and sent for cultures which are pending. Infectious disease following and patient is maintained on antibiotic. D-dimer is elevated above 16 and will atte mpt to obtain a VQ scan. 08/25/23 : Patient seen and evaluated at bedside, patient extubated around noon, transition to 5 L of oxygen to nasal cannula. Family at bedside, blood work reviewed hemoglobin 10.3, serum chemistry reviewed sodium 140 potassium 4.8 BUN 57 creatinine 2.49 calcium of 7. 08/26/23 : Patient seen and evaluated at bedside, patient remains in medical ICU, does complain of chest pain from CPR. Patient has been weaned off dopamine, cardiology following, blood work reviewed, hemoglobin 8.5 platelet count of 217, serum chemistry shows sodium 141 BUN 51 creatinine 2.28. Followed up by nephrology as well MARYLOU secondary to ATN continue to monitor intake and output 08/27/23: Patient seen and evaluated bedside, on evaluation patient is disoriented, patient is drowsy however likely having acute delirium. Seen by cardiology echocardiogram shows preserved ejection fraction continue with current medical management, patient on Precedex for acute delirium, continue to remain on oxygen supplementation with nasal cannula blood work reviewed CBC showed WBC 8.2 hemoglobin 8.6 serum chemistry showed creatinine of 2.22. Patient remains delirious, daughter at bedside all questions answered 08/28/2023 Patient was agitated earlier requiring Seroquel and Placed on Precedex because she was has risk to self and others Currently when I saw the patient she was sleepy However she is not tachypneic show does not look in pain. Vitals are stable She is saturating 91% on 2 L oxygen via nasal cannula She remains on Zosyn for pneumonia and UTI She is on normal saline at 50 mL/h 08/29/2023 Patient remains sleepy, she still has some encephalopathy But she is on Precedex which will be tapered off by pulmonary team today to assess her mentation as well. Patient has been followed by neurology for suspected anoxic brain injury after her cardiac arrest and return of circulation on 08/22. There is no evidence of seizure-like activity She has catheter tip infection with culture growing Corynebacterium species and she is currently covered with Zosyn which also help for her right heel pressure ulcer and aspiration pneumonia and UTI. Cardiology evaluated the patient and there is no clear evidence for her cardiac arrest although she has history of coronary artery disease and previous stents. Currently with no chest pain. She remains on aspirin and Plavix, gentle hydration, IV steroids 08/30/2023 Today her sedation remains off however patient mentation not completely resolved, it is somewhat better as she was more sleepy yesterday She is eating okay, swallowing is fine She was started on IV Lasix twice daily per machine deicer element winder. She has good urine output and normal send discontinued She is hemodynamically stable and oxygenation is acceptable Remains on aspirin and Plavix and Seroquel 08/31/23: Seen and evaluated at bedside, patient remains on 4 L of oxygen, blood work reviewed, WBC 7.3 hemoglobin 9.1 platelet count of 203 glucose 119. CBC reviewed showed WBC 7.3 hemoglobin 9.1 platelet count of 203.. Neurology consulted and following. Patient is awake and alert able to answer questions and follow commands sister at bedside all questions answered 09/01/23: Seen and evaluated at bedside, patient vitals reviewed, serum chemistry reviewed sodium 145 potassium 4.6 creatinine 2.71, CBC reviewed patient remains on IV Zosyn , appreciate input from nephrology continue patient on IV Lasix, delirium persist 09/02/23: Patient seen and evaluated bedside, patient been admitted for cardiopulmonary arrest, respiratory failure s/p extubation on nasal cannula however continues to remain delirious. Blood work reviewed hemoglobin 8.8, platelet count 226, serum chemistry reviewed creatinine 2.55 potassium 4.5. MRI brain has been ordered which is pending, patient remains disoriented 09/03/2023 Patient is seen in follow-up status post recent extubation maintained on a few liters of pulmonary commutator repairer following closely. Cardiology following as well and adjusted medications recommending continuing with current medication regimen. No change in mentation as patient continues with periods of confusion and restlessness. Medications being adjusted and Ativan as needed has been added. Continue Seroquel. Patient will answer questions appropriately and discuss her health history and can recall her doctors names but will ramble on regarding something irrelevant during conversation. Patient is redirectable. Patient continues with partial cast noted on the lower extremity. Patient continues on IV Lasix and kidney functions are improving nephrology following closely. Plan is for patient to possibly move out of the ICU. Will have PT/OT therapy evaluate the patient and discuss further with consultations along with case management regarding possible ECF versus discharge planning. 09/04/2023 Patient seen in follow-up today and continues to have periods of confusion and restlessness. Patient continues in the ICU with multiple medical consultations following. Hemoglobin was found to be less than 7 today and will transfuse 1 unit of PRBC. Sodium 147 and recommend repeat labs as well. Nephrology is following and patient is continued on IV Lasix. MRI of the brain remains pending and neurology is following. 09/05/2023 Patient is seen and evaluated today continues to be in the ICU needs continuous reinforcement on keeping oxygen on. Patient does have a consumer safety officer at the bedside. Patient is currently resting although remains confused and anxious and agitated at times. Hemoglobin is stable above 7 status post 1 unit of PRBC. Patient continues on IV Lasix daily and nephrology following closely. Patient to continue on IV antibiotics with infectious disease following. 09/06/2023 Patient seen in follow-up today continues to be sleepy at this time although when awake patient is extremely restless and agitated requiring sitter at the bedside. Adjustments to medications being made and Risperdal is being increased and will continue with Seroquel. Ativan as needed. Patient's hemoglobin is stable with no active bleeding noted. Neurology following as patient continues to be unable to obtain an MRI and will have a repeat EEG as well as CT brain per neurology. Patient is afebrile and is continued on antibiotics with infectious disease following. 09/09/2023 Patient seen in follow-up today has been transitioned out of the ICU and curren tly on selective unit and continues with consumer safety officer at the bedside. Patient is keeping her oxygen on currently and is on 4 L. Multiple medical consultations following and per nursing staff patient was able to get up and work with physical therapy today. Plan is for ECF when patient's mentation is improved. Patient continues on IV Lasix twice daily as well with nephrology following. Continue Ativan as needed and patient is also maintained on Risperdal twice daily. Patient is afebrile with no reports of chest pain or shortness of breath. Hemoglobin is stable at 9.8 and white count is normal and kidney functions are improving. Continue monitoring Accu-Cheks before meals and at bedtime and will continue with sliding scale. Neurology following and patient is scheduled to undergo repeat brain CT today. Chest x-ray continues to show pulmonary vascular congestion. 09/10/2023 Patient is seen in follow-up today and mentation is much improved with family sitting at the bedside. Patient is able to have conversation and reports she is going home although patient has significant weakness and will be requiring ECF on discharge. Case management following awaiting for ECF evaluation and will require insurance authorization. Patient is afebrile and has been on IV antibiotics in the form of Zosyn with infectious disease following and white count remains normal and patient will be monitored off antibiotic therapy. Patient also continues on IV Lasix twice daily along with treatments and continued supplemental oxygen. Patient is on 4 L via nasal cannula. 09/11/2023 Patient is seen in follow-up this morning continues to display periods of confusion with increased agitation and restlessness. Per nursing staff patient had reports of hallucinating and seeing things crawling in the room that were not there. Patient is extremely anxious today although continues to be more mikaela ke. Patient reports is eating without much of an appetite. Patient has been compliant with working with physical therapy and will require ECF on discharge. Patient continues with consumer safety officer as patient is impulsive and attempts to get up out of the bed impulsively. Will ask for psychiatry to reevaluate and adjust medications. Will discontinue Dilaudid as the hallucinations appeared shortly after receiving this medication. Patient does elicit pain in the right leg and foot. 09/12/2023 Patient is seen in follow-up today and continues with confusion and requiring a sitter for safety. Patient has been working with physical therapy and reports she is doing well and ready to go home although she will require ECF for continued strength and mobility. Patient is extremely impulsive and restless at times. Asking psychiatry to reevaluate and will adjust medications. Family also working on obtaining guardianship as patient is not making sound decisions for herself medically. Family report they also cannot take her home and take care of her as they are elderly. Patient is afebrile with no reported chest pain or shortness of breath. Patient continues on 4 L and continues to remove her oxygen frequently. Patient is maintained on IV Lasix and being transition to daily. Continue monitoring kidney functions and nephrology is following. Being monitored off antibiotic therapy 09/13/2023 Patient is seen in follow-up this morning continues with a sitter at the bedside. Per nursing staff patient had a large black bowel movement and was incontinent. Occult Was positive and stat repeat hemoglobin was obtained and actually improved from previous at 9.5. Patient is maintained on aspirin, Plavix, and heparin and will hold for now. No GI available and will consult general surgery for evaluation of possible GI bleed. Contents do not appear to be melanotic on exam although dark stools are noted. Multiple other consultations following as well as psychiatry who reevaluated and adjusted medications. Mentation is improved today and less anxious and agitated and per nursing staff more appropriate today. Will continue current regimen and also continue SURGICAL CODER and narcotic agents. Review of systems: Constitutional: No reports of fatigue, fever, or chills, reports feeling anxious Cardiovascular: No reports of chest pain or palpitations Respiratory: No reports of shortness of breath or cough GI: No reports of nausea, vomiting, reports having multiple large dark stools : No reports of dysuria or retention Neurovascular: reports of generalized weakness but improving and reports feels fine to go home All medications have been reviewed PHYSICAL EXAMINATION: GENERAL: The patient is on nasal cannula, awake alert and oriented x 2, much more appropriate today, elderly appearing, unkept, ill-appearing HEENT: Pupils are round and equally reacting to light. EOMI. CARDIOVASCULAR: S1 and S2 muffled PULMONARY: Decreased breath sounds bilaterally with some scattered rhonchi noted ABDOMEN: Soft, nontender, nondistended, normoactive bowel sounds. No palpable organomegaly. MUSCULOSKELETAL: No joint swelling or deformity. EXTREMITIES: Right lower extremity bandage with partial cast noted NEUROLOGICAL: pupils reactive, less anxious although continues, cooperative, tea rful SKIN: Patient has right plantar surface ulcer on the posterior foot stage III-IV with areas of necrotic tissue. Casting and Tam wrap noted of the right lower extremity Assessment: Asystole/cardiopulmonary arrest x 2 with CPR/ROSC Respiratory failure requiring intubation s/p extubation 08/25/2023 Large black stools, concern for GI bleed Acute metabolic encephalopathy with concerns of anoxia, status postcardiac arrest Congestive heart failure with systolic dysfunction acute on chronic exacerbation Acute hypoxic respiratory failure secondary to CHF Ischemic cardiomyopathy with improved EF Acute kidney injury secondary to ATN on chronic kidney disease stage III Urinary tract infection with E. coli Subacute fracture of the medial and lateral malleolus, orthopedics following Right heel stage III pressure injury continue local wound care with aquacel ID following. Genital lesions, will need insurance counselor follow up outpatient for routine screenings Hypertension Hyperlipidemia Type 2 diabetes mellitus uncontrolled hgb a1c 12.1 Severe pulmonary hypertension COPD without any acute exacerbation Peripheral neuropathy Obesity with a body mass index of 30.8 GI prophylaxis DVT prophylaxis Full code Plan: Patient being followed by multiple medical consultation and is continued on 3 S. stepdown unit from the ICU. or manager at the bedside Wean FiO2 as tolerated and patient is maintained on 3 to 4 L via nasal cannula. Patient continues to remove oxygen tubing and oxygen saturations drop into the low 80s. Patient continues on IV Lasix daily and chest x-ray showing continued pulmonary vascular congestion, weaning FiO2 as tolerated. Nephrology following and kidney functions are improving Patient was able to work with PT/OT therapy again today and will await updated notes with case management following as plans are for patient to go to [facility]. Chart being reviewed and patient will also require insurance authorization. Patient will also need for sitter removed for at least 24 hours before ECF considers accepting the patient. Family working on obtaining guardianship to make medical choices for patient. Mentation continues to wax and wane although patient is more awake today and able to respond and answer questions more appropriately. All SURGICAL CODER and narcotic agents being held and patient was reevaluated by psychiatry with adjustments to medications and will continue current regimen. Continue consumer safety officer at this time as patient is known to be very impulsive and attempts to get out of the bed very frequently Hemoglobin is stable above 9.5 today and per nursing staff had a few large dark bowel movements with concerns of possible GI bleed. No GI available and will consult general surgery for evaluation. After multiple bowel movements patient was noted to have a mild rectal prolapse per nursing staff and was informed to keep the area moist and will hopefully retract on its own per surgery. Surgery to be notified if worsening. EGD to be done Saturday by general surgery after cardiology and other consultation clearance Infectious disease following and patient was being closely monitored off antibiotic therapy. Continued concerns of that right lower extremity as it has been casted and there is a chronic wound. Antibiotics being initiated in the form of daptomycin. Patient remains afebrile and white count is within normal limits. Repeat CT of the brain is negative for acute process. Neurology following and patient has been unable to receive an MRI given patient's continued restlessness and anxiety Continue to monitor hemoglobin and transfuse if 7 or less. The impression and plan of care has been dictated by Mouna Rowley Nurse Prac titioner as directed. Dr. Ricardo MD I have performed a history and examination and MDM of this patient, discussed the same with the dictator, and agree with the dictator's assessment and plan as written ,documented as a scribe. Based on total visit time, I have performed more than 50% of the visit. Objective - Vital Signs Vital signs: Vital Signs Temp 97.5 F L 09/13/23 09:13 Pulse 80 09/13/23 09:13 Resp 18 09/13/23 09:13 BP 177/88 09/13/23 09:13 Pulse Ox 98 09/13/23 09:13 FiO2 3 09/02/23 04:00 Intake & Output 09/12/23 09/13/23 09/13/23 18:59 06:59 18:59 Intake Total 0 200 Output Total 500 Balance 0 -300 Weight 57.5 kg Intake: Oral 0 200 Output: Urine 500 Other: Voiding Method Bedpan Indwelling Catheter # Voids 0 # Bowel Movements 0 ABP, PAP, CO, CI - Last Documented Arterial Blood Pressure 125/73 - Labs CBC & Chem 7: 09/13/23 12:50 09/13/23 07:30 Labs: Abnormal Lab Results - Last 24 Hours (Table) 09/12/23 09/12/23 09/12/23 Range/Units 09:23 09:23 11:22 RBC 3.21 L (3.80-5.40) m/uL Hgb 9.1 L (11.4-16.0) gm/dL Hct 30.6 L (34.0-46.0) % MCHC 29.7 L (31.0-37.0) g/dL RDW 16.9 H (11.5-15.5) % Lymphocytes # 0.5 L (1.0-4.8) k/uL Sodium 135 L (137-145) mmol/L Chloride 97 L (98-107) mmol/L Carbon Dioxide 33 H (22-30) mmol/L BUN 33 H (7-17) mg/dL Creatinine 1.88 H (0.52-1.04) mg/dL Glucose 129 H (74-99) mg/dL POC Glucose (mg/dL) 131 H (70-110) mg/dL Calcium 7.7 L (8.4-10.2) mg/dL Stool Occult Blood (Negative) 09/12/23 09/13/23 09/13/23 Range/Units 20:13 07:30 07:30 RBC 3.25 L (3.80-5.40) m/uL Hgb 9.5 L (11.4-16.0) gm/dL Hct 30.3 L (34.0-46.0) % MCHC (31.0-37.0) g/dL RDW 17.0 H (11.5-15.5) % Lymphocytes # (1.0-4.8) k/uL Sodium 134 L (137-145) mmol/L Chloride (98-107) mmol/L Carbon Dioxide (22-30) mmol/L BUN 32 H (7-17) mg/dL Creatinine 1.60 H (0.52-1.04) mg/dL Glucose (74-99) mg/dL POC Glucose (mg/dL) 137 H (70-110) mg/dL Calcium 8.0 L (8.4-10.2) mg/dL Stool Occult Blood (Negative) 09/13/23 Range/Units 09:00 RBC (3.80-5.40) m/uL Hgb (11.4-16.0) gm/dL Hct (34.0-46.0) % MCHC (31.0-37.0) g/dL RDW (11.5-15.5) % Lymphocytes # (1.0-4.8) k/uL Sodium (137-145) mmol/L Chloride (98-107) mmol/L Carbon Dioxide (22-30) mmol/L BUN (7-17) mg/dL Creatinine (0.52-1.04) mg/dL Glucose (74-99) mg/dL POC Glucose (mg/dL) (70-110) mg/dL Calcium (8.4-10.2) mg/dL Stool Occult Blood Positive H (Negative)
[2023-09-14 06:16] LABS: Glucose,Whole Blood 90 mg/dL (70-110)
[2023-09-14] MEDS: ASPIRIN 81 MG PO SCH (08:20)
[2023-09-14 08:27] LABS: Anisocytosis Slight; Basophils % (A) 1 %; Eosinophils # (A) 0.3 k/uL (0-0.7); Eosinophils % (A) 6 %; HCT 29.6 % (34.0-46.0); HGB 8.8 gm/dL (11.4-16.0); Hypochromasia Marked; Lymphocytes # (A) 0.7 k/uL (1.0-4.8); Lymphocytes % (A) 13 %; MCH 28.1 pg (25.0-35.0); MCHC 29.9 g/dL (31.0-37.0); MCV 94.1 fL (80.0-100.0); Mean Platelet Volume 9.1; Monocytes # (A) 0.5 k/uL (0-1.0); Monocytes % (A) 11 %; Neutrophils # (A) 3.3 k/uL (1.3-7.7); Neutrophils % (A) 65 %; Platelet Count 236 k/uL (150-450); Poikilocytosis Moderate; RBC 3.14 m/uL (3.80-5.40); RDW 17.1 % (11.5-15.5); WBC 5.1 k/uL (3.8-10.6)
[2023-09-14 08:40] LABS: African American GFR (CKD) 41 (>60 ml/min/1.73 sqM); Anion Gap 7 mmol/L; Blood Urea Nitrogen 32 mg/dL (7-17); Carbon Dioxide 28 mmol/L (22-30); Chloride 102 mmol/L (98-107); Glucose 85 mg/dL (74-99); Magnesium 1.7 mg/dL (1.6-2.3); Non-African American GFR(CKD) 36 (>60 ml/min/1.73 sqM); Potassium 3.8 mmol/L (3.5-5.1); Sodium 137 mmol/L (137-145)
[2023-09-14] MEDS ORDERED: Magnesium Replacement Protocol 1 EACH MISC MISCELLANE PRN (09:09)
[2023-09-14] MEDS: MAGNESIUM SULFATE-D5W PMX 1 GM in DEXTROSE/WATER 1 100ML.BAG IVPB ONE (10:35)
--- NOTE | 2023-09-14 10:51 | P.PN ---
Subjective Patient is seen for follow-up for acute kidney injury. patient remains confused and requiring a sitter. Renal function has improved with creatinine staying at about 1.5 mg/dL. . Patient is being diuresed. Volume status has much improved. Objective - Vital Signs Vital signs: Vital Signs Temp 97.5 F L 09/14/23 08:16 Pulse 86 09/14/23 08:16 Resp 20 09/14/23 08:16 BP 146/68 09/14/23 08:16 Pulse Ox 97 09/14/23 09:54 FiO2 3 09/02/23 04:00 Intake & Output 09/13/23 09/14/23 09/14/23 18:59 06:59 18:59 Intake Total 20 10 10 Output Total 600 1325 Balance -580 -1315 10 Weight 56 kg Intake: IV 20 10 10 Invasive Line 9 20 10 10 Output: Urine 600 1325 Other: Voiding Method Indwelling Catheter Indwelling Catheter # Bowel Movements 1 1 ABP, PAP, CO, CI - Last Documented Arterial Blood Pressure 125/73 - Exam Patient is awake. She is comfortable. Confused Examination of the heart S1 and S2 Examination of the lungs bilateral breath sounds are heard Abdomen is soft nontender Examination of lower extremities shows no edema. Right leg is in cast - Labs CBC & Chem 7: 09/14/23 07:41 09/14/23 07:41 Labs: Abnormal Lab Results - Last 24 Hours (Table) 09/13/23 09/13/23 09/13/23 Range/Units 12:50 16:52 20:51 RBC 3.34 L (3.80-5.40) m/uL Hgb 9.6 L (11.4-16.0) gm/dL Hct 31.1 L (34.0-46.0) % MCHC 30.7 L (31.0-37.0) g/dL RDW 16.8 H (11.5-15.5) % Lymphocytes # 0.7 L (1.0-4.8) k/uL BUN (7-17) mg/dL Creatinine (0.52-1.04) mg/dL POC Glucose (mg/dL) 134 H 114 H (70-110) mg/dL Calcium (8.4-10.2) mg/dL 09/14/23 09/14/23 Range/Units 07:41 07:41 RBC 3.14 L (3.80-5.40) m/uL Hgb 8.8 L (11.4-16.0) gm/dL Hct 29.6 L (34.0-46.0) % MCHC 29.9 L (31.0-37.0) g/dL RDW 17.1 H (11.5-15.5) % Lymphocytes # 0.7 L (1.0-4.8) k/uL BUN 32 H (7-17) mg/dL Creatinine 1.57 H (0.52-1.04) mg/dL POC Glucose (mg/dL) (70-110) mg/dL Calcium 8.0 L (8.4-10.2) mg/dL Assessment and Plan Assessment: 1. Acute kidney injury secondary to ATN secondary to cardiorenal syndrome and cardiac arrest. Creatinine stable at 1.5. increase to 1.8 and decreased to 1.6 today. Lasix dose decreased. Patient was on hemodialysis in the past with last treatment being July 02, 2023. Dialysis catheter it is now removed. Renal US no hydronephrosis. 2. Volume overload. Improved with diuresis. 3. Acute on chronic diastolic CHF. 4. Diabetes mellitus. 5. Right foot wound. 6. Coronary disease with cardiac stenting. 7. Status post PEA arrest with concern for anoxic encephalopathy. 8. Septic Shock-urine culture is growing E. coli. Catheter tip culture is chauncey yin corynebacterium, blood culture negative so far. 9. Metabolic acidosis, nongap, improved 10. Hypernatremia, status post D5W, improved Plan: continue with IV Lasix Repeat labs in a.m.
--- NOTE | 2023-09-14 11:22 | P.PN ---
Subjective Progress Note Date: 09/14/23 Principal diagnosis: Respiratory failure. Pulmonary consult dated August 23, 2023. This is a 57-year-old female who was admitted back on August 18, for a right heel wound. Early this morning, the patient had a cardiopulmonary arrest. The patient apparently was initially found to be bradycardic, and then had asystole. She received 3 rounds of epinephrine. She arrived to the intensive care unit this morning at 630, having been intubated on the floor by anesthesia. In the I CU, the patient had an episode of pulseless electrical activity, and asystole, and received 2 rounds of epinephrine, a dose of atropine, and some sodium bicarbonate. I came into the intensive care unit this morning, early, to place a left internal jugular triple-lumen catheter, and a right femoral arterial line. Currently, the patient is on volume assist-control, rate 16, tidal volume 400, FiO2 50%, PEEP of 5. The most recent blood gases show pO2 of 75, pCO2 49, pH is 7.44. Arterial blood gases shortly after intubation showed a pO2 of 268, pCO2 of 38, and a pH of 7.25. The patient is currently on norepinephrine at 1.4 mcg/min, and saline at 50 cc an hour. Current labs include a white count 13.8, hemoglobin 9.5, hematocrit 31, and a platelet count of 257,000. PT was 12.9 with an INR of 1.2. Sodium 135, potassium 4.9, chlorides 111, CO2 19, anion gap 5, BUN 62, creatinine 2.76. The patient's AST is 468. ALT is 286. Albumin is 2.1. Urine, is suspicious for possible infection. Brain CT Today, Shows No Acute Intracranial Process. Chest x-ray shows bilateral patchy airspace d isease, right greater than left. Progress note dated August 24, 2023. The patient is seen today in the intensive care unit, room 255. The patient remains on the mechanical ventilator. Current settings include volume assist- control, rate 16, tidal volume 400, FiO2 50%, PEEP of 5. The tidal volume will be dropped down to 350, and the FiO2 will be dropped down to 40%, current blood gases show pO2 132, pCO2 34, pH is 7.37. The patient continues on 0.9 at 50 cc an hour, propofol at 20 mcg/kg/min, and vital 1.2 at 10 cc an hour, with a goal of 48. The patient is discovered to have gram-negative bacilli in the urine. She continues on Zosyn. White count 9, hemoglobin 9.6, hematocrit 30.1, p latelet count 242,000. Sodium 138, potassium 4.7, chloride 113, CO2 18, BUN 63, and creatinine 2.65. Anion gap is 7. The patient's AST is 199, ALT is 235. Troponin is 0.565. Albumin is 2.0. The gram-negative bacilli in the urine was discovered to be Escherichia coli. Chest x-ray shows an endotracheal tube that is too low in the trachea, and should be pulled back. In addition, there is evidence of underlying vascular congestion, and/or infiltrates. Progress note dated August 25, 2023. 57-year-old female seen again in room 255. The patient remains on mechanical ventilator. She is on volume assist-control, rate 16, tidal volume 350, FiO2 40%, PEEP of 5. Blood gases show a pO2 of 95, pCO2 of 39, pH is 7.31. The patient is getting propofol 35 mcg/kg/min, saline at 50 cc an hour, and dopamine at 2.5 mcg/kg/min. The patient continues on Zosyn for Escherichia coli. The patient did develop some bradycardia, overnight, which required her to be on dopamine. We are going to order some Dopplers of the lower extremities. In addition, we will do a daily interruption of sedation, and a spontaneous breathing trial. Count is 10.5, hemoglobin 10.3, hematocrit 32.7, platelet count 314,000. Sodium 140, potassium 4.8, chlorides 113, CO2 18, BUN 57, creatinine 2.49. Glucose is 142. Magnesium is 2.1, calcium is 7.0. The patient's urine specimen from August 21, revealed Escherichia coli. Dopplers of the lower extremities were negative. Chest x-ray shows some patchy bilateral in filtrates, more left-sided than right-sided. On today's evaluation of 08/26/2023, the patient is being seen for a follow-up. The patient is post cardiopulmonary arrest that occurred on 08/23/2023 and the patient return of spontaneous circulation. Subsequently, the patient was extubated on 08/25/2023. The patient is currently on 4 L of oxygen by nasal cannula. The patient remains encephalopathic. At times, restless in bed and somewhat agitated. Based on that, made recommendations to start the patient on Precedex at the low-dose to control her restlessness and agitation. She is also noted to have a right ankle fracture and a chronic nonhealing heel ulcer, stage [place]. She was also found to have an E. coli in her urine possibly underlying urine tract infection on 08/22/2023. On today's evaluation, the patient is on 40s of oxygen by nasal cannula. Chest x-ray showing cardiomegaly and the patient has a left subclavian triple-lumen catheter in place. Hemodynamically stable on no pressors. WBC count of 8.6 with a hemoglobin 8.5 and a platelet count of 217. BUN is 51 with a creatinine of 2.28 and a sodium level is at 141 and a bicarb level is at 17. The patient is moving all 4 extremities without any limitation. The patient is currently afebrile. Nephrology is on the case regarding MARYLOU which is probably secondary to ATN and has creatinine is being monitored. Fluid balance over the past 24 hours has been 250 cc positive and the patient shows no signs of any significant fluid overload. The patient is currently on IV Zosyn regarding the possibility of an aspiration/E. coli urinary tract infection and is stage III right heel wound. She remains on bronchodilators. She is on no pressors for now. No other significant events overnight. As mentioned, she was extubated yesterday and the chest x-ray shows distal stable left-sided pleural effusion. The echocardiogram that was done on 08/20/2023 showed a preserved left ventricular ejection fraction, no significant valvular abnormalities. The patient also had Doppler of the lower extremity on 08/25/2023 that revealed no evidence of any DVT. There was a prominent lymph node in the right groin measuring 2.6 cm in size. The patient did have a catheter in her right IJ at the time of admission that was removed and the cultures came back positive for corynebacterium. On today's evaluation of 08/27/2023, the patient is being seen for a follow-up. Patient is postcardiac arrest and the patient is having some signs of anoxic encephalopathy. She was restless and confused and somewhat agitated. Based on that, the patient was started on Precedex yesterday and Precedex is running at 0.4 mcg/kg/h. No significant agitation at this point in time. She seems to be calm and comfortable. She follows occasional simple commands. No agitation. No focal neurological deficits. She is currently on 2 L of oxygen nasal cannula and she is also on lactated Ringer at rate of 50 cc an hour. Urine output is in order of 30 cc an hour. Overall fluid balance has been +700 cc over the past 24 hours. The blood work shows a WC count of 8.2 with a hemoglobin 8.6 and a platelet count of 200, BUN is at 48 with a creatinine of 2.22 and a sodium level of 141. The serum bicarb level is at 18. A repeat limited echocardiogram was done yesterday and the patient showed improvement and in the LV function and the patient ejection fraction is in order of 55 to 60% without any significant segmental wall motion abnormalities. The patient is afebrile. The patient is hemodynamically stable at this point in time. Nephrology on the case regarding her chronic renal failure. On today's evaluation of 08/28/2023, the patient continues to require Precedex for increased agitation and restlessness. While off sedation, thrashes around. Currently she is calm and comfortable being on Precedex at 0.7 mcg/kg/h. She is on 3 L of oxygen by nasal cannula. No signs of any respiratory distress. No focal neurological deficits. She continues to complain of chest wall soreness and pain related to CPR and based on that the patient was given IV Tylenol and she is also [place] for pain control. WBC count is 7.1 with a hemoglobin of 8.7 and a platelet count of 214. BUN is at 50 with a creatinine of 2.45 and a sodium level of 140 with a potassium level of 5.1. She is afebrile. She is hemodynamically stable at this point in time. Progress note dated August 29, 2023. The patient is seen today in room 255, intensive care unit. The patient was extubated from mechanical ventilation on August 24. She continues on oxygen by nasal cannula at 2 L. She is getting saline at 50 cc an hour. She does continue on Zosyn. She also continues on dexmedetomidine at 0.4 mcg/kg/h, for ongoing restlessness and agitation. Current labs include a white count of 6, hemoglobin 8.4, hematocrit 27.4, and a normal platelet count. Sodium 144, pot assium 4.9, chlorides 117, CO2 18, BUN 54, creatinine 2.86. The patient's glucose was 103. Calcium is 7.6. Urine from August 21 with positive for Escherichia coli. Catheter tip, from August 22 with positive for Corynebacterium species. Reevaluated today on 09/04/2023, patient is about the same, remains in the ICU as an overflow, patient has intermittent episodes of agitation and restlessness, remains on Seroquel, remains on Ativan as needed, patient is requiring intermittent medications for sedation, she is not requiring any more Precedex. Patient has a bedside sitter, and she needs almost constant attention. Labs including CBC and basic metabolic profile are normal BUN however is 67 crea tinine 2.04 Reevaluated 09/05/2023, patient is about the same, continues to have intermittent episodes of agitation and restlessness, she is on D5W@50 mL/h she is also on Ativan 0 0.5 mg every 4 hours as needed intermittently receiving Lasix and she is on it now maintenance 40 mg IV push every 12 hours I cut it down to once a day. Continues to require sitter at bedside because of her intermittent episodes of agitations, today I added Risperdal 0.25 mg daily. WBC count is 6.5 hemoglobin 7.3 basic metabolic profile is normal BUN is 57 creatinine 1.89, improving Reevaluated on 09/06/2023, patient remains in the ICU, remains agitated intermittently, combative, when I evaluated the patient she was very calm and resting, sleeping, however apparently overnight the patient was extremely agitated and did not sleep much last night. Her Risperdal dose will be increased to 0.25 mg twice daily. The meantime patient is on many other medications to keep her calm and sedated. Patient has a sitter at bedside, does not seem to be in any distress labs today are unremarkable except hemoglobin of 7.6 basic metabolic profile is normal BUN is 52 creatinine 1.71 steadily improving over the last week Patient was reevaluated today on 09/07/2023, patient remains in the ICU, patient continues to have intermittent episodes of confusion, agitation, restlessness, does not seem to be in any respiratory distress, although her chest x-ray did show evidence of pulmonary edema and I recommended a dose of Lasix 40 mg IV push to be given now. Patient is on different types of medications to keep her calm, however does not seem to be helping, and now I am recommending a psychiatric consultation on this patient. WBC count is 6.0 hemoglobin 8.3 electrolytes are normal BUN is 40 creatinine 1.61, steadily improving. Patient is receiving Seroquel 150 twice daily she is also receiving Risperdal 0.25 twice daily, Ativan as needed but she is not requiring much Ativan. Patient is also on multiple cardiac meds. Patient was evaluated today on 09/08/2023, she is now out of the ICU, continues to have intermittent episodes of confusion and agitation, she has a sitter at bedside, today she seems to be [place]. Chest x-ray today showed evidence of worsening pulmonary edema although clinically the patient seems to be doing fine, hence I recommended increasing her Lasix up to 40 mg IV push twice daily. Patient is yet to be seen by psychiatry on consultation. WBC count is 3.4 hemoglobin 7.3 basic metabolic profile is normal BUN is 38 creatinine 1.54. Chest x-ray as noted earlier. Progress note dated September 09, 2023. The patient is seen today in room 356. She is currently on 4 L of oxygen. She is receiving Zosyn. The patient has episodes of confusion and agitation, and has had a sitter at the bedside, for quite some time. Currently, speech pathology is in the room with the patient, evaluating her ability to properly take food by mouth. Laboratory data includes a white count 4.7, hemoglobin 9.8, hematocrit 30.8, and a platelet count of 227,000. Sodium 143, potassium 3.5, chlorides 106, CO2 30, BUN 32, creatinine 1.53. Glucose is 143. Calcium is 8.3. Previous culture data shows urine positive for E. coli, August 21, and a catheter tip with corynebacterium species, from August 22. Chest x-ray from today shows some cardiomegaly, and mild pulmonary vascular congestion. Progress note dated September 10, 2023. The patient is seen today in room 356. She is currently on oxygen at 4 L. She is getting D5W at 50 cc an hour. The patient is much less agitated today. Still has a sitter. Current labs include a white count of 6, hemoglobin 9.5, hematocrit 31.4, and a normal platelet count. Sodium 140, potassium 3.7, chlorides 104, CO2 32, BUN 27, and creatinine 1.42. Glucose is 177. Calcium is 8.1. The patient's urine had evidence of Escherichia coli. The patient also had a catheter tip that was positive for Corynebacterium species. The patient's currently on Zosyn still. Progress note dated September 11, 2023. The patient was seen again in room 356. Currently, she is on 5 L of oxygen. She is getting D5W at 50 cc an hour. She is currently not on any antibiotic. She seems less agitated and restless today. Current labs include a glucose of 137. The patient denies any shortness of breath, coughing, wheezing, chest tightness, or phlegm production. She also denies any chest pain or pressure, palpitations, or fluttering in the chest. She denies any nausea, vomiting, vashti rrhea, or abdominal pain. Progress note dated September 12, 2023. The patient is seen today in room 356. A sitter is in the room with the patient. The patient is currently very agitated and restless. She is getting D5W at 50 cc an hour. Her nasal O2 was turned up to 7 L by high flow. We have asked psychiatry to come back and evaluate her for her agitation. Blood gases done yesterday show pO2 of 57, pCO2 49, pH is 7.45. That apparently was 40%, but it is unclear, if the patient was actually wearing her oxygen. Current labs include a white count 5.3, hemoglobin 9.1, hematocrit 30.6, and a normal platelet count. Sodium 135, potassium 3.9, chlorides 97, CO2 33, BUN 33, and creatinine 1.88. Glucose is 129. Calcium is 7.7. Chest x-ray done September 11, shows a diffuse hazy appearance over both lung bowen. Progress note dated September 13, 2023. The patient is seen today in room 356. A sitter is still present. Currently, the patient is on oxygen at 5 L by nasal cannula. She is not receiving any IV fluids. Labs include a white count 5.1, hemoglobin 9.5, hematocrit 30.3, and a normal platelet count. Sodium 134, potassium 3.6, chlorides 98, CO2 30, BUN 32, creatinine 1.6. Calcium is 8. Glucose is 81. Chest x-ray is compared to previous x-rays, and shows a stable examination. Progress note dated September 14, 2023. The patient was seen today in room 356. She was very agitated, and security was called. She is currently on 4 L of oxygen. She is not receiving any IV fluids. We have asked psychiatry to come back and evaluate the patient, and make recommendations in regards to her agitation, confusion, and disorientation. Current labs include a white count 5.1, hemoglobin 8.8, hematocrit 29.6, and a platelet count of 236,000. Sodium 137, potassium 3.8, chlorides 102, CO2 28, BUN 32, creatinine 1.57. Calcium is 8. Magnesium 1.7. Objective - Vital Signs Vital signs: Vital Signs Temp 97.5 F L 09/14/23 08:16 Pulse 86 09/14/23 08:16 Resp 20 09/14/23 08:16 BP 146/68 09/14/23 08:16 Pulse Ox 97 09/14/23 09:54 FiO2 3 09/02/23 04:00 Intake & Output 09/13/23 09/14/23 09/14/23 18:59 06:59 18:59 Intake Total 20 10 10 Output Total 600 1325 Balance -580 -1315 10 Weight 56 kg Intake: IV 20 10 10 Invasive Line 9 20 10 10 Output: Urine 600 1325 Other: Voiding Method Indwelling Catheter Indwelling Catheter Indwelling Catheter # Bowel Movements 1 1 ABP, PAP, CO, CI - Last Documented Arterial Blood Pressure 125/73 - Exam No acute distress, currently on nasal O2 at 4 L nasal cannula. HEENT examination is grossly unremarkable. Neck supple. Full range of motion. No adenopathy thyromegaly or neck vein distention. Cardiovascular examination reveals regular rhythm rate. S1-S2 normal. No S3 or S4. No discernible murmur noted. Heart sounds are distant. Heart rate 85 bpm. Lungs reveal scattered bilateral rhonchi. No wheezes or crackles. Breath sounds equal bilaterally. Saturation is 97 %. Abdomen soft with bowel sounds. Extremities are intact. No cyanosis clubbing or edema. Skin is without rash or lesion. Neurologic examination is brief but nonfocal. Patient is much more calm today. - Labs CBC & Chem 7: 09/14/23 07:41 09/14/23 07:41 Labs: Abnormal Lab Results - Last 24 Hours (Table) 09/13/23 09/13/23 09/13/23 Range/Units 12:50 16:52 20:51 RBC 3.34 L (3.80-5.40) m/uL Hgb 9.6 L (11.4-16.0) gm/dL Hct 31.1 L (34.0-46.0) % MCHC 30.7 L (31.0-37.0) g/dL RDW 16.8 H (11.5-15.5) % Lymphocytes # 0.7 L (1.0-4.8) k/uL BUN (7-17) mg/dL Creatinine (0.52-1.04) mg/dL POC Glucose (mg/dL) 134 H 114 H (70-110) mg/dL Calcium (8.4-10.2) mg/dL 09/14/23 09/14/23 Range/Units 07:41 07:41 RBC 3.14 L (3.80-5.40) m/uL Hgb 8.8 L (11.4-16.0) gm/dL Hct 29.6 L (34.0-46.0) % MCHC 29.9 L (31.0-37.0) g/dL RDW 17.1 H (11.5-15.5) % Lymphocytes # 0.7 L (1.0-4.8) k/uL BUN 32 H (7-17) mg/dL Creatinine 1.57 H (0.52-1.04) mg/dL POC Glucose (mg/dL) (70-110) mg/dL Calcium 8.0 L (8.4-10.2) mg/dL Assessment and Plan Assessment: Cardiopulmonary arrest, x 2, with cardiopulmonary resuscitation, and return of spontaneous circulation on 08/23/23. Acute hypoxic respiratory failure, postcardiac arrest. S/P intubation, and mechanical ventilation, secondary to cardiopulmonary arrest, August 23, 2023. She was extubated on 08/25/23. Encephalopathy. History of congestive heart failure (HFPEF) Coronary artery disease/cardiomyopathy and the patient is post non-ST segment elevation myocardial infarction. Stage III chronic kidney disease. Right heel pressure ulcer, stage III. Subacute fracture of the medial and lateral malleolus. History of hypertension. History of hyperlipidemia. History of type 2 diabetes mellitus. History of severe pulmonary hypertension. History of COPD. History of peripheral neuropathy. Chest wall pain related to CPR. Plan: Plan dated August 23, 2023. The patient is seen in the intensive care unit, room 255. I came in early this morning to place an arterial line, and the internal jugular triple-lumen catheter. The patient had poor IV access. The patient is currently on norepinephrine at 1.4 mcg/min. He is getting saline at [address] A [address] scan of the brain, was negative. The patient blood gases show pO2 of 75, pCO2 of 49, pH of 7.44. We will continue to follow make recommendations along the way. The patient's overall prognosis remains very guarded. The patient continues on ceftriaxone, and fluconazole. Prognosis is guarded. Plan dated August 24, 2023. The patient is seen today in room 255. She remains on mechanical ventilator. The urine is showing evidence of Escherichia coli. The patient continues on Zosyn. The patient's EEG shows slowing, consistent with severe encephalopathy. There was no evidence of any seizure activity. Labs, x-rays, and all medications are reviewed. We will continue to follow the patient, make tony mmendations along the way. The patient's overall prognosis remains very guarded. Today we make some ventilator changes, including dropping the tidal volume down from 400, down to 350, and the FiO2, being reduced to 40%, for 50%. Plan dated August 25, 2023. The patient is seen today in room 255. She remains on the mechanical ventilator. Today, we will do a daily interruption of sedation, and a spontaneous breathing trial. Dopplers of the lower extremities were negative. She remains on Zosyn for Escherichia coli urinary tract infection. Overnight she developed bradycardia. For that she was started on dopamine by cardiology. The patient is getting saline at 50 cc an hour, propofol at 35 mcg/kg/min. Blood gases are reasonable. Will place the patient on PSV 5, CPAP 5, get some weaning parameters, and see if we can extubate the patient. We will continue to follow. Labs, x-rays, and medications are reviewed. Prognosis is guarded. Plan dated August 29, 2023. The patient will continue with dexmedetomidine, and hopefully, it will be gradually weaned off. The patient was started on Seroquel, 100 mg twice a day. The patient is currently hemodynamically stable, with no need for vasopressors. Cardiac rhythm is also stable. A repeat echocardiogram has been ordered. The patient is on [place] for pain control. Also, the patient continues on Zosyn. Other medications include Lipitor, Norvasc, and Imdur, as well as subcutaneous heparin for DVT prophylaxis. We will continue to monitor, in the intensive care unit. Prognosis is certainly very guarded. Neurologic status is of a concern. Appreciate input by neurology. Plan dated September 09, 2023. The patient is seen today in room 356. The patient continues on Zosyn. The patient is on 4 L of oxygen. There is a sitter at the bedside. She continues on appropriate medications including Risperdal and Seroquel. In addition, the patient continues on GI prophylaxis, and DVT prophylaxis. Though Zosyn is primarily for the cellulitis. We will continue to follow make recommendations along the way. Prognosis is guarded. She does have intermittent episodes of confusion agitation, and yelling out. Plan dated September 10, 2023. The patient is seen today in room 356. The patient still has a sitter. The patient is currently on 4 L. She continues on Zosyn. She is getting D5W at 50 cc an hour. Labs, x-rays, and medications are reviewed. She continues on appropriate medications. We will continue to follow make recommendations along the way. Prognosis is guarded. She is a bit more alert, and less agitated today. Plan dated September 11, 2023. The patient is no longer on antibiotics. She is on oxygen, between 4 to 5 L by nasal cannula. She is getting D5W at 50 cc an hour. No new labs today. She is apparently doing better, and less agitated, less confusion. We will continue to follow. Prognosis is guarded. Labs, x-rays, and all medications are reviewed. Plan dated September 12, 2023. The patient is currently quite agitated. We have asked psychiatry to come back and evaluate the patient, to see if there is anything more they can add, for the patient's restlessness, and agitation. She is currently on 7 L high flow nasal O2. She is given D5W at 50 cc an hour. Blood gases from yesterday have been reviewed. Labs, x-rays, medications are reviewed. We will continue to follow make recommendations along the way. Prognosis is guarded. Plan dated September 13, 2023. The patient seems to be much more calm today. Labs, x-rays, medications are reviewed. She has been weaned down to 5 L by nasal cannula. We will continue to follow the patient, make recommendations. She is not receiving any IV fluids. Patient's overall prognosis remains guarded. Her mental status seems to be better today, and she seems much more calm, much less agitated. Nonetheless, a sitter is still present. Plan dated September 14, 2023. The patient was much more agitated, and confused today. So much so, security was called. She does have a sitter in the room. Labs, x-rays, medications are reviewed. The patient is currently on 4 L nasal cannula. She is not receiving any IV fluids. Labs, x-rays, and medications are reviewed. We will continue to follow the patient, and make recommendations along the way. Prognosis is gua rded. Time with Patient: Less than 30
--- NOTE | 2023-09-14 11:37 | P.PN ---
Progress Note - Text Progress Note Date: 09/14/23 HPI: NAEO General-NAD Abdomen-soft, NTND ASSESSMENT: 1. Acute GI bleed with 1 large melanotic stool 2. Cardiopulmonary arrest x 2 3. CHF exacerbation 4. Severe pulmonary hypertension 5. History of coronary disease with cardiac stent placed in June 24, 2023 PLAN: -Plan for EGD on 09/16/[address] Marlow if patient is stable -Continue to trend hemoglobin -Hold Plavix, Aspirin and subcu heparin -Increase IV Protonix to twice a day -Continue to monitor hemoglobin -Continue to monitor any signs or symptoms of bleeding
[2023-09-14 11:46] LABS: Glucose,Whole Blood 85 mg/dL (70-110)
--- NOTE | 2023-09-14 14:16 | P.PN ---
Subjective Progress Note Date: 09/14/23 57-year-old female came in with complaints of shortness of breath and orthopnea found to be in congestive heart failure exacerbation patient has congestive heart failure with reduced ejection fraction in the past patient has increasing pedal edema. Patient also has an ulcer in the right foot stage III-IV which appeared to be infected we will consult wound care and infectious disease. Patient was on hemodialysis during last hospitalization her creatinine presently is 1.5 which is significantly improved patient potassium is 5.5, patient is on Entresto and Aldactone Aldactone will be held Entresto will be continued since she is receiving IV Lasix and expecting her potassium to improve if it does not improve or get worse then Entresto need to be discontinued as well. Patient has hypervolemic hyponatremia and hyperglycemia. 08/21/2023 Was evaluated today on the medical floor. Patient was continued on IV Lasix overnight however she was no longer reporting any shortness of breath and her lower extremity edema has improved. She was taken off of the Lasix at this time due to increased creatinine up to 2.31 additionally potassium remains elevated at 5.7. Echocardiogram comes back showing an improved ejection fraction of 60 to 65% because of this and also the hyperkalemia patient will not be continued on entresto. Patient was evaluated by infectious disease who felt like that heel ulcer on the right side was more likely a pressure injury stage III and is recommending local wound care to continue with Aquacel. Patient is reporting significant pain to the right foot and feels like it is fractured. Upon review of the patient's chart she did have a x-ray completed of this 12 days ago ordered by her carrier operator Dr. Mayen. Ankle x-ray did review a mildly displaced acute distal fibular fracture. Repeat x-ray of the foot and ankle completed today does reveal a subacute fractures of the medial and lateral malleolus. The lateral malleolus fracture was seen on the patient's prior exam the medial malleolus fracture may be new in the interval and this would be considered an unstable ankle fracture. There is interval 6 mm displacement of the lateral malleolus. There is a deep soft tissue ulcer at the plantar heel with no clear radiographic findings of a contagious osteomyelitis at this time. Orthooedics was consulted for this. 08/22/2023 Patient evaluated in follow-up today resting in bed. She was taken off of the Lasix remains off at this time. Bladder scan was requested and not done yesterday to rule out urinary retention, creatinine today is increased up to 2.56. Bladder scan was done require urinary straight catheterization of 550 mL taken out. Urinalysis was sent which is significantly abnormal. Patient is also noted to have multiple genital lesions which appear wartlike she admits to not having any routine gynecological screenings for many years. She is not having any vaginal bleeding or discharge. Renal ultrasound has been ordered to rule out any obstructive uropathy. 08/23/2023 Patient is evaluated today in follow-up patient had a cardiac event with cardiac arrest slide machine tender around 445 AM with initial rhythm slowing asystole patient was started on CPR with ACS protocol patient did receive ROSC after 6 to 8 minutes and was transferred to the intensive care unit. Patient upon arrival to the intensive care unit had another episode of cardiac arrest patient had bradycardia while on pressors in the ICU patient was intubated following the first cardiac arrest and is currently on the mechanical ventilator 50% FiO2. Chest x-ray showing similar interstitial and patchy component airspace disease right greater than left. There is a possible trace left pleural effusion. A brain CT which shows no acute intracranial process. Blood work today shows a white blood cell count of 13.8, hemoglobin 9.5, sodium level of 135, BUN of 62, creatinine of 2.76. AST ALT and alk phosphatase are significantly elevated consistent with a shock liver. TSH 3.310. Urinalysis is abnormal. Her urine culture is showing gram-negative bacilli patient is covered for the urinary tract infection as well as aspiration with IV Zosyn being managed by infectious disease. Patient is currently sedated with propofol and did require vasopressor support with Levophed which has been weaned at this time. Will discontinue the gabapentin patient is continued on aspirin Plavix and statin has been placed on hold. There is concern for possible arrhythmia precipitating the asystole additionally we need to rule out embolism and a D-dimer has been ordered. 08/24/2023 Patient is seen in follow-up today continues in the ICU on mechanical ventilation. FiO2 is 50% although titrating and was just placed at 40% with a PEEP of 5. Chest x-ray today shows that the ET tube is 7 mm from the sonam suggesting a pulled back 2 cm and reassess and also suspected underlying vascular congestion. Neuro is following and per nursing staff patient is following some simple commands and undergoing sedation holidays. Patient noted to have reduced EF of 30 to 35% and cardiology had been following. Will reconsult and appreciate input and recommendations. patient did have dialysis catheter removed and sent for cultures which are pending. Infectious disease following and patient is maintained on antibiotic. D-dimer is elevated above 16 and will attempt to obtain a VQ scan.57-year-old female came in with complaints of shortness of breath and orthopnea found to be in congestive heart failure exacerbation patient has congestive heart failure with reduced ejection fraction in the past patient has increasing pedal edema. Patient also has an ulcer in the right foot stage III-IV which appeared to be infected we will consult wound care and infectious disease. Patient was on hemodialysis during last hospitalization her creatinine presently is 1.5 which is significantly improved patient potassium is 5.5, patient is on Entresto and Aldactone Aldactone will be held Entresto will be continued since she is receiving IV Lasix and expecting her potassium to improve if it does not improve or get worse then Entresto need to be discontinued as well. Patient has hypervolemic hyponatremia and hyperglycemia. 08/21/2023 Was evaluated today on the medical floor. Patient was continued on IV Lasix overnight however she was no longer reporting any shortness of breath and her lower extremity edema has improved. She was taken off of the Lasix at this time due to increased creatinine up to 2.31 additionally potassium remains elevated at 5.7. Echocardiogram comes back showing an improved ejection fraction of 60 to 65% because of this and also the hyperkalemia patient will not be continued on entresto. Patient was evaluated by infectious disease who felt like that heel ulcer on the right side was more likely a pressure injury stage III and is recommending local wound care to continue with Aquacel. Patient is reporting significant pain to the right foot and feels like it is fractured. Upon review of the patient's chart she did have a x-ray completed of this 12 days ago ordered by her carrier operator Dr. Mayen. Ankle x-ray did review a mildly displaced acute distal fibular fracture. Repeat x-ray of the foot and ankle completed today does reveal a subacute fractures of the medial and lateral malleolus. The lateral malleolus fracture was seen on the patient's prior exam the medial malleolus fracture may be new in the interval and this would be considered an unstable ankle fracture. There is interval 6 mm displacement of the lateral malleolus. There is a deep soft tissue ulcer at the plantar heel with no clear radiographic findings of a contagious osteomyelitis at this time. Orthooedics was consulted for this. 08/22/2023 Patient evaluated in follow-up today resting in bed. She was taken off of the Lasix remains off at this time. Bladder scan was requested and not done yesterday to rule out urinary retention, creatinine today is increased up to 2.56. Bladder scan was done require urinary straight catheterization of 550 mL taken out. Urinalysis was sent which is significantly abnormal. Patient is also noted to have multiple genital lesions which appear wartlike she admits to not having any routine gynecological screenings for many years. She is not having any vaginal bleeding or discharge. Renal ultrasound has been ordered to rule out any obstructive uropathy. 08/23/2023 Patient is evaluated today in follow-up patient had a cardiac event with cardiac arrest slide machine tender around 445 AM with initial rhythm slowing asystole patient was started on CPR with ACS protocol patient did receive ROSC after 6 to 8 minutes and was transferred to the intensive care unit. Patient upon arrival to the intensive care unit had another episode of cardiac arrest patient had bradycardia while on pressors in the ICU patient was intubated following the first cardiac arrest and is currently on the mechanical ventilator 50% FiO2. Chest x-ray showing similar interstitial and patchy component airspace disease right greater than left. There is a possible trace left pleural effusion. A brain CT which shows no acute intracranial process. Blood work today shows a white blood cell count of 13.8, hemoglobin 9.5, sodium level of 135, BUN of 62, creatinine of 2.76. AST ALT and alk phosphatase are significantly elevated consistent with a shock liver. TSH 3.310. Urinalysis is abnormal. Her urine culture is showing gram-negative bacilli patient is covered for the urinary tract infection as well as aspiration with IV Zosyn being managed by infectious disease. Patient is currently sedated with propofol and did require vasopressor support with Levophed which has been weaned at this time. Will discontinue the gabapentin patient is continued on aspirin Plavix and statin has been placed on hold. There is concern for possible arrhythmia precipitating the asystole additionally we need to rule out embolism and a D-dimer has been ordered. 08/24/2023 Patient is seen in follow-up today continues in the ICU on mechanical ventila tion. FiO2 is 50% although titrating and was just placed at 40% with a PEEP of 5. Chest x-ray today shows that the ET tube is 7 mm from the sonam suggesting a pulled back 2 cm and reassess and also suspected underlying vascular congestion. Neuro is following and per nursing staff patient is following some simple commands and undergoing sedation holidays. Patient noted to have reduced EF of 30 to 35% and cardiology had been following. Will reconsult and appreciate input and recommendations. patient did have dialysis catheter removed and sent for cultures which are pending. Infectious disease following and patient is maintained on antibiotic. D-dimer is elevated above 16 and will attempt to obtain a VQ scan. 08/25/23 : Patient seen and evaluated at bedside, patient extubated around noon, transition to 5 L of oxygen to nasal cannula. Family at bedside, blood work reviewed hemoglobin 10.3, serum chemistry reviewed sodium 140 potassium 4.8 BUN 57 creatinine 2.49 calcium of 7. 08/26/23 : Patient seen and evaluated at bedside, patient remains in medical ICU, does complain of chest pain from CPR. Patient has been weaned off dopamine, cardiology following, blood work reviewed, hemoglobin 8.5 platelet count of 217, serum chemistry shows sodium 141 BUN 51 creatinine 2.28. Followed up by nephrology as well MARYLOU secondary to ATN continue to monitor intake and output 08/27/23: Patient seen and evaluated bedside, on evaluation patient is disoriented, patient is drowsy however likely having acute delirium. Seen by cardiology echocardiogram shows preserved ejection fraction continue with current medical management, patient on Precedex for acute delirium, continue to remain on oxygen supplementation with nasal cannula blood work reviewed CBC showed WBC 8.2 hemoglobin 8.6 serum chemistry showed creatinine of 2.22. Patient remains delirious, daughter at bedside all questions answered 08/28/2023 Patient was agitated earlier requiring Seroquel and Placed on Precedex because she was has risk to self and others Currently when I saw the patient she was sleepy However she is not tachypneic show does not look in pain. Vitals are stable She is saturating 91% on 2 L oxygen via nasal cannula She remains on Zosyn for pneumonia and UTI She is on normal saline at 50 mL/h 08/29/2023 Patient remains sleepy, she still has some encephalopathy But she is on Precedex which will be tapered off by pulmonary team today to assess her mentation as well. Patient has been followed by neurology for suspected anoxic brain injury after her cardiac arrest and return of circulation on 08/22. There is no evidence of seizure-like activity She has catheter tip infection with culture growing Corynebacterium species and she is currently covered with Zosyn which also help for her right heel pressure ulcer and aspiration pneumonia and UTI. Cardiology evaluated the patient and there is no clear evidence for her cardiac arrest although she has history of coronary artery disease and previous stents. Currently with no chest pain. She remains on aspirin and Plavix, gentle hydration, IV steroids 08/30/2023 Today her sedation remains off however patient mentation not completely resolved, it is somewhat better as she was more sleepy yesterday She is eating okay, swallowing is fine She was started on IV Lasix twice daily per parking meter installer. She has good urine output and normal send discontinued She is hemodynamically stable and oxygenation is acceptable Remains on aspirin and Plavix and Seroquel 08/31/23: Seen and evaluated at bedside, patient remains on 4 L of oxygen, blood work reviewed, WBC 7.3 hemoglobin 9.1 platelet count of 203 glucose 119. CBC reviewed showed WBC 7.3 hemoglobin 9.1 platelet count of 203.. Neurology consulted and following. Patient is awake and alert able to answer questions and follow commands sister at bedside all questions answered 09/01/23: Seen and evaluated at bedside, patient vitals reviewed, serum chemistry reviewed sodium 145 potassium 4.6 creatinine 2.71, CBC reviewed patient remains on IV Zosyn , appreciate input from nephrology continue patient on IV Lasix, delirium persist 09/02/23: Patient seen and evaluated bedside, patient been admitted for cardiopulmonary arrest, respiratory failure s/p extubation on nasal cannula however continues to remain delirious. Blood work reviewed hemoglobin 8.8, platelet count 226, serum chemistry reviewed creatinine 2.55 potassium 4.5. MRI brain has been ordered which is pending, patient remains disoriented 09/03/2023 Patient is seen in follow-up status post recent extubation maintained on a few liters of pulmonary application integration engineer following closely. Cardiology following as well and adjusted medications recommending continuing with current medication regimen. No change in mentation as patient continues with periods of confusion and restlessness. Medications being adjusted and Ativan as needed has been added. Continue Seroquel. Patient will answer questions appropriately and discuss her health history and can recall her doctors names but will ramble on regarding something irrelevant during conversation. Patient is redirectable. Patient continues with partial cast noted on the lower extremity. Patient continues on IV Lasix and kidney functions are improving nephrology following closely. Plan is for patient to possibly move out of the ICU. Will have PT/OT therapy evaluate the patient and discuss further with consultations along with case management regarding possible ECF versus discharge planning. 09/04/2023 Patient seen in follow-up today and continues to have periods of confusion and restlessness. Patient continues in the ICU with multiple medical consultations following. Hemoglobin was found to be less than 7 today and will transfuse 1 unit of PRBC. Sodium 147 and recommend repeat labs as well. Nephrology is following and patient is continued on IV Lasix. MRI of the brain remains pending and neurology is following. 09/05/2023 Patient is seen and evaluated today continues to be in the ICU needs continuous reinforcement on keeping oxygen on. Patient does have a safety deposit supervisor at the bedside. Patient is currently resting although remains confused and anxious and agitated at times. Hemoglobin is stable above 7 status post 1 unit of PRBC. Patient continues on IV Lasix daily and nephrology following closely. Patient to continue on IV antibiotics with infectious disease following. 09/06/2023 Patient seen in follow-up today continues to be sleepy at this time although when awake patient is extremely restless and agitated requiring sitter at the bedside. Adjustments to medications being made and Risperdal is being increased and will continue with Seroquel. Ativan as needed. Patient's hemoglobin is stable with no active bleeding noted. Neurology following as patient continues to be unable to obtain an MRI and will have a repeat EEG as well as CT brain per neurology. Patient is afebrile and is continued on antibiotics with infectious disease following. 09/09/2023 Patient seen in follow-up today has been transitioned out of the ICU and current ly on selective unit and continues with safety deposit supervisor at the bedside. Patient is keeping her oxygen on currently and is on 4 L. Multiple medical consultations following and per nursing staff patient was able to get up and work with physical therapy today. Plan is for ECF when patient's mentation is improved. Patient continues on IV Lasix twice daily as well with nephrology following. Continue Ativan as needed and patient is also maintained on Risperdal twice daily. Patient is afebrile with no reports of chest pain or shortness of breath. Hemoglobin is stable at 9.8 and white count is normal and kidney functions are improving. Continue monitoring Accu-Cheks before meals and at bedtime and will continue with sliding scale. Neurology following and patient is scheduled to undergo repeat brain CT today. Chest x-ray continues to show pulmonary vascular congestion. 09/10/2023 Patient is seen in follow-up today and mentation is much improved with family sitting at the bedside. Patient is able to have conversation and reports she is going home although patient has significant weakness and will be requiring ECF on discharge. Case management following awaiting for ECF evaluation and will require insurance authorization. Patient is afebrile and has been on IV antibiotics in the form of Zosyn with infectious disease following and white count remains normal and patient will be monitored off antibiotic therapy. Patient also continues on IV Lasix twice daily along with treatments and continued supplemental oxygen. Patient is on 4 L via nasal cannula. 09/11/2023 Patient is seen in follow-up this morning continues to display periods of confusion with increased agitation and restlessness. Per nursing staff patient had reports of hallucinating and seeing things crawling in the room that were not there. Patient is extremely anxious today although continues to be more awake. Patient reports is eating without much of an appetite. Patient has been compliant with working with physical therapy and will require ECF on discharge. Patient continues with safety deposit supervisor as patient is impulsive and attempts to get up out of the bed impulsively. Will ask for psychiatry to reevaluate and adjust medications. Will discontinue Dilaudid as the hallucinations appeared shortly a fter receiving this medication. Patient does elicit pain in the right leg and foot. 09/12/2023 Patient is seen in follow-up today and continues with confusion and requiring a sitter for safety. Patient has been working with physical therapy and reports she is doing well and ready to go home although she will require ECF for continued strength and mobility. Patient is extremely impulsive and restless at times. Asking psychiatry to reevaluate and will adjust medications. Family also working on obtaining guardianship as patient is not making sound decisions for herself medically. Family report they also cannot take her home and take care of her as they are elderly. Patient is afebrile with no reported chest pain or shortness of breath. Patient continues on 4 L and continues to remove her oxygen frequently. Patient is maintained on IV Lasix and being transition to daily. Continue monitoring kidney functions and nephrology is following. Being monitored off antibiotic therapy 09/13/2023 Patient is seen in follow-up this morning continues with a sitter at the bedside. Per nursing staff patient had a large black bowel movement and was incontinent. Occult Was positive and stat repeat hemoglobin was obtained and actually improved from previous at 9.5. Patient is maintained on aspirin, Plavix, and heparin and will hold for now. No GI available and will consult general surgery for evaluation of possible GI bleed. Contents do not appear to be melanotic on exam although dark stools are noted. Multiple other consultations following as well as psychiatry who reevaluated and adjusted medications. Mentation is improved today and less anxious and agitated and per nursing staff more appropriate today. Will continue current regimen and also continue CLIN ASST and narcotic agents. 09/14/2023 Patient is evaluated in follow-up with sister at the bedside as well as family. General surgery is planning for an upper endoscopy on Saturday with no further reports of any black or bloody stool. Aspirin Plavix and heparin remain on hold. Patient was seen in follow-up by psychiatry for now continues on Prolixin as needed, olanzapine as needed. Patient is maintained on risperidone twice a day scheduled. Patient's mentation she is currently alert x 1-0 she is hallucinating and appears delirious. Continues on IV Lasix 40 mg every 12 hours. Continues on IV daptomycin. Continues in the cast to the right lower extremity. Bun is 32, creatinine is 1.57, magnesium 1.7. White blood cell count 5.1. Review of systems: Constitutional: No reports of fatigue, fever, or chills, reports feeling anxious Cardiovascular: No reports of chest pain or palpitations Respiratory: No reports of shortness of breath or cough GI: No reports of nausea, vomiting, reports having multiple large dark stools : No reports of dysuria or retention Neurovascular: reports of generalized weakness but improving and reports feels fine to go home All medications have been reviewed PHYSICAL EXAMINATION: GENERAL: The patient is on nasal cannula, awake alert and oriented x 2, much more appropriate today, elderly appearing, unkept, ill-appearing HEENT: Pupils are round and equally reacting to light. EOMI. CARDIOVASCULAR: S1 and S2 muffled PULMONARY: Decreased breath sounds bilaterally with some scattered rhonchi noted ABDOMEN: Soft, nontender, nondistended, normoactive bowel sounds. No palpable organomegaly. MUSCULOSKELETAL: No joint swelling or deformity. EXTREMITIES: Right lower extremity bandage with partial cast noted NEUROLOGICAL: pupils reactive, less anxious although continues, cooperative, tearful SKIN: Patient has right plantar surface ulcer on the posterior foot stage III-IV with areas of necrotic tissue. Casting and Tam wrap noted of the right lower extremity Assessment: Asystole/cardiopulmonary arrest x 2 with CPR/ROSC Respiratory failure requiring intubation s/p extubation 08/25/2023 Large black stools, concern for GI bleed Acute metabolic encephalopathy with concerns of anoxia, status postcardiac arrest Congestive heart failure with systolic dysfunction acute on chronic exacerbation Acute hypoxic respiratory failure secondary to CHF Ischemic cardiomyopathy with improved EF Acute kidney injury secondary to ATN on chronic kidney disease stage III Urinary tract infection with E. coli Subacute fracture of the medial and lateral malleolus, orthopedics following Right heel stage III pressure injury continue local wound care with aquacel ID following. Genital lesions, will need census clerk follow up outpatient for routine screenings Hypertension Hyperlipidemia Type 2 diabetes mellitus uncontrolled hgb a1c 12.1 Severe pulmonary hypertension COPD without any acute exacerbation Peripheral neuropathy Obesity with a body mass index of 30.8 GI prophylaxis DVT prophylaxis Full code Plan: Patient being followed by multiple medical consultation and is continued on 3 S. stepdown unit from the ICU. 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 Patient continues to remove oxygen tubing and oxygen saturations drop into the low 80s. Patient continues on IV Lasix daily and chest x-ray showing continued pulmonary vascular congestion, weaning FiO2 as tolerated. Nephrology following and kidney functions are improving Patient was able to work with PT/OT therapy again today and will await updated notes with case management following as plans are for patient to go to [facility]. Chart being reviewed and patient will also require insurance authorization. Patient will also need for sitter removed for at least 24 hours before ECF considers accepting the patient. Family working on obtaining guardianship to make medical choices for patient. Mentation continues to wax and wane although patient is more awake today and able to respond and answer questions more appropriately. All CLIN ASST and narcotic a gents being held and patient was reevaluated by psychiatry with adjustments to medications and will continue current regimen. 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 No GI available and will consult general surgery for evaluation. After multiple bowel movements patient was noted to have a mild rectal prolapse per nursing staff and was informed to keep the area moist and will hopefully retract on its own per surgery. Surgery to be notified if worsening. EGD to be done Saturday by general surgery after cardiology and other consultation clearance Infectious disease following and patient was being closely monitored off antibiotic therapy. Continued concerns of that right lower extremity as it has been casted and there is a chronic wound. Antibiotics being initiated in the form of daptomycin. Patient remains afebrile and white count is within normal limits. Repeat CT of the brain is negative for acute process. Neurology following and patient has been unable to receive an MRI given patient's continued restlessness and anxiety Continue to monitor hemoglobin and transfuse if 7 or less. The impression and plan of care has been dictated by Nurse Johnny Carreon as directed. Dr. Ricardo MD I have performed a history and physical examination and medical decision making of this patient, discussed the same with the dictator, and agree with the dict ators assessment and plan as written, documented as a scribe. Based on total visit time, I have performed more than 50% of this visit. Objective - Vital Signs Vital signs: Vital Signs Temp 97.5 F L 09/14/23 08:16 Pulse 85 09/14/23 12:15 Resp 18 09/14/23 12:15 BP 139/81 09/14/23 12:15 Pulse Ox 99 09/14/23 12:15 FiO2 3 09/02/23 04:00 Intake & Output 09/13/23 09/14/23 09/14/23 18:59 06:59 18:59 Intake Total 20 10 10 Output Total 600 1325 Balance -580 -1315 10 Weight 56 kg Intake: IV 20 10 10 Invasive Line 9 20 10 10 Output: Urine 600 1325 Other: Voiding Method Indwelling Catheter Indwelling Catheter Indwelling Catheter # Bowel Movements 1 1 ABP, PAP, CO, CI - Last Documented Arterial Blood Pressure 125/73 - Labs CBC & Chem 7: 09/14/23 07:41 09/14/23 07:41 Labs: Abnormal Lab Results - Last 24 Hours (Table) 09/13/23 09/13/23 09/13/23 Range/Units 12:50 16:52 20:51 RBC 3.34 L (3.80-5.40) m/uL Hgb 9.6 L (11.4-16.0) gm/dL Hct 31.1 L (34.0-46.0) % MCHC 30.7 L (31.0-37.0) g/dL RDW 16.8 H (11.5-15.5) % Lymphocytes # 0.7 L (1.0-4.8) k/uL BUN (7-17) mg/dL Creatinine (0.52-1.04) mg/dL POC Glucose (mg/dL) 134 H 114 H (70-110) mg/dL Calcium (8.4-10.2) mg/dL 09/14/23 09/14/23 Range/Units 07:41 07:41 RBC 3.14 L (3.80-5.40) m/uL Hgb 8.8 L (11.4-16.0) gm/dL Hct 29.6 L (34.0-46.0) % MCHC 29.9 L (31.0-37.0) g/dL RDW 17.1 H (11.5-15.5) % Lymphocytes # 0.7 L (1.0-4.8) k/uL BUN 32 H (7-17) mg/dL Creatinine 1.57 H (0.52-1.04) mg/dL POC Glucose (mg/dL) (70-110) mg/dL Calcium 8.0 L (8.4-10.2) mg/dL Assessment and Plan Time with Patient: Less than 30
[2023-09-14 16:42] LABS: Glucose,Whole Blood 72 mg/dL (70-110)
[2023-09-14 17:14] LABS: Glucose,Whole Blood 85 mg/dL (70-110)
[2023-09-14 20:13] LABS: Glucose,Whole Blood 85 mg/dL (70-110)
[2023-09-15 06:22] LABS: Glucose,Whole Blood 61 mg/dL (70-110)
[2023-09-15 06:56] LABS: Glucose,Whole Blood 73 mg/dL (70-110)
--- NOTE | 2023-09-15 10:39 | P.PN ---
Subjective Patient is seen for follow-up for acute kidney injury. patient remains confused and requiring a sitter. Renal function has improved with creatinine staying at about 1.5 mg/dL. . Patient is being diuresed. Volume status has much improved. Objective - Vital Signs Vital signs: Vital Signs Temp 97.4 F L 09/15/23 08:35 Pulse 89 09/15/23 08:35 Resp 20 09/15/23 08:35 BP 136/88 09/15/23 08:35 Pulse Ox 97 09/15/23 08:51 FiO2 3 09/02/23 04:00 Intake & Output 09/14/23 09/15/23 09/15/23 18:59 06:59 18:59 Intake Total 138 20 128 Output Total 1250 350 300 Balance -1112 -330 -172 Weight 53 kg Intake: IV 20 20 10 Invasive Line 9 20 20 10 Oral 118 118 Output: Urine 1250 350 300 Other: Voiding Method Indwelling Catheter Indwelling Catheter Indwelling Catheter ABP, PAP, CO, CI - Last Documented Arterial Blood Pressure 125/73 - Exam Patient is awake. She is comfortable. Confused Examination of the heart S1 and S2 Examination of the lungs bilateral breath sounds are heard Abdomen is soft nontender Examination of lower extremities shows no edema. Right leg is in cast - Labs CBC & Chem 7: 09/14/23 07:41 09/14/23 07:41 Labs: Abnormal Lab Results - Last 24 Hours (Table) 09/15/23 Range/Units 06:21 POC Glucose (mg/dL) 61 L (70-110) mg/dL Assessment and Plan Assessment: 1. Acute kidney injury secondary to ATN secondary to cardiorenal syndrome and cardiac arrest. Creatinine stable at 1.5. Patient was on hemodialysis in the past with last treatment being July 02, 2023. Dialysis catheter it is now removed. Renal US no hydronephrosis. 2. Volume overload. Improved with diuresis. 3. Acute on chronic diastolic CHF. 4. Diabetes mellitus. 5. Right foot wound. 6. Coronary disease with cardiac stenting. 7. Status post PEA arrest with concern for anoxic encephalopathy. 8. Septic Shock-urine culture is growing E. coli. Catheter tip culture is growing corynebacterium, blood culture negative so far. 9. Metabolic acidosis, nongap, improved 10. Hypernatremia, status post D5W, improved Plan: continue with IV Lasix Repeat labs in a.m.
--- NOTE | 2023-09-15 11:11 | P.PN ---
Subjective Progress Note Date: 09/15/23 Principal diagnosis: Anemia Patient confused. Denies pain. No labs from today. No active bleeding. Objective - Vital Signs Vital signs: Vital Signs Temp 97.4 F L 09/15/23 08:35 Pulse 89 09/15/23 08:35 Resp 20 09/15/23 08:35 BP 136/88 09/15/23 08:35 Pulse Ox 97 09/15/23 08:51 FiO2 3 09/02/23 04:00 Intake & Output 09/14/23 09/15/23 09/15/23 18:59 06:59 18:59 Intake Total 138 20 128 Output Total 1250 350 300 Balance -0962 -330 -172 Weight 53 kg Intake: IV 20 20 10 Invasive Line 9 20 20 10 Oral 118 118 Output: Urine 1250 350 300 Other: Voiding Method Indwelling Catheter Indwelling Catheter Indwelling Catheter ABP, PAP, CO, CI - Last Documented Arterial Blood Pressure 125/73 - Exam Abdomen: Soft, nontender, nondistended - Labs CBC & Chem 7: 09/14/23 07:41 09/14/23 07:41 Labs: Abnormal Lab Results - Last 24 Hours (Table) 09/15/23 Range/Units 06:21 POC Glucose (mg/dL) 61 L (70-110) mg/dL Assessment and Plan Plan: 58-year-old female with anemia. No await morning labs. Continue diet. Plans for EGD tomorrow.
[2023-09-15 11:43] LABS: Glucose,Whole Blood 88 mg/dL (70-110)
--- NOTE | 2023-09-15 11:51 | P.PN ---
Subjective Progress Note Date: 09/15/23 Principal diagnosis: Respiratory failure. Pulmonary consult dated August 23, 2023. This is a 57-year-old female who was admitted back on August 18, for a right heel wound. Early this morning, the patient had a cardiopulmonary arrest. The patient apparently was initially found to be bradycardic, and then had asystole. She received 3 rounds of epinephrine. She arrived to the intensive care unit this morning at 630, having been intubated on the floor by anesthesia. In the I CU, the patient had an episode of pulseless electrical activity, and asystole, and received 2 rounds of epinephrine, a dose of atropine, and some sodium bicarbonate. I came into the intensive care unit this morning, early, to place a left internal jugular triple-lumen catheter, and a right femoral arterial line. Currently, the patient is on volume assist-control, rate 16, tidal volume 400, FiO2 50%, PEEP of 5. The most recent blood gases show pO2 of 75, pCO2 49, pH is 7.44. Arterial blood gases shortly after intubation showed a pO2 of 268, pCO2 of 38, and a pH of 7.25. The patient is currently on norepinephrine at 1.4 mcg/min, and saline at 50 cc an hour. Current labs include a white count 13.8, hemoglobin 9.5, hematocrit 31, and a platelet count of 257,000. PT was 12.9 with an INR of 1.2. Sodium 135, potassium 4.9, chlorides 111, CO2 19, anion gap 5, BUN 62, creatinine 2.76. The patient's AST is 468. ALT is 286. Albumin is 2.1. Urine, is suspicious for possible infection. Brain CT Today, Shows No Acute Intracranial Process. Chest x-ray shows bilateral patchy airspace d isease, right greater than left. Progress note dated August 24, 2023. The patient is seen today in the intensive care unit, room 255. The patient remains on the mechanical ventilator. Current settings include volume assist- control, rate 16, tidal volume 400, FiO2 50%, PEEP of 5. The tidal volume will be dropped down to 350, and the FiO2 will be dropped down to 40%, current blood gases show pO2 132, pCO2 34, pH is 7.37. The patient continues on 0.9 at 50 cc an hour, propofol at 20 mcg/kg/min, and vital 1.2 at 10 cc an hour, with a goal of 48. The patient is discovered to have gram-negative bacilli in the urine. She continues on Zosyn. White count 9, hemoglobin 9.6, hematocrit 30.1, p latelet count 242,000. Sodium 138, potassium 4.7, chloride 113, CO2 18, BUN 63, and creatinine 2.65. Anion gap is 7. The patient's AST is 199, ALT is 235. Troponin is 0.565. Albumin is 2.0. The gram-negative bacilli in the urine was discovered to be Escherichia coli. Chest x-ray shows an endotracheal tube that is too low in the trachea, and should be pulled back. In addition, there is evidence of underlying vascular congestion, and/or infiltrates. Progress note dated August 25, 2023. 57-year-old female seen again in room 255. The patient remains on mechanical ventilator. She is on volume assist-control, rate 16, tidal volume 350, FiO2 40%, PEEP of 5. Blood gases show a pO2 of 95, pCO2 of 39, pH is 7.31. The patient is getting propofol 35 mcg/kg/min, saline at 50 cc an hour, and dopamine at 2.5 mcg/kg/min. The patient continues on Zosyn for Escherichia coli. The patient did develop some bradycardia, overnight, which required her to be on dopamine. We are going to order some Dopplers of the lower extremities. In addition, we will do a daily interruption of sedation, and a spontaneous breathing trial. Count is 10.5, hemoglobin 10.3, hematocrit 32.7, platelet count 314,000. Sodium 140, potassium 4.8, chlorides 113, CO2 18, BUN 57, creatinine 2.49. Glucose is 142. Magnesium is 2.1, calcium is 7.0. The patient's urine specimen from August 21, revealed Escherichia coli. Dopplers of the lower extremities were negative. Chest x-ray shows some patchy bilateral in filtrates, more left-sided than right-sided. On today's evaluation of 08/26/2023, the patient is being seen for a follow-up. The patient is post cardiopulmonary arrest that occurred on 08/23/2023 and the patient return of spontaneous circulation. Subsequently, the patient was extubated on 08/25/2023. The patient is currently on 4 L of oxygen by nasal cannula. The patient remains encephalopathic. At times, restless in bed and somewhat agitated. Based on that, made recommendations to start the patient on Precedex at the low-dose to control her restlessness and agitation. She is also noted to have a right ankle fracture and a chronic nonhealing heel ulcer, stage [place]. She was also found to have an E. coli in her urine possibly underlying urine tract infection on 08/22/2023. On today's evaluation, the patient is on 40s of oxygen by nasal cannula. Chest x-ray showing cardiomegaly and the patient has a left subclavian triple-lumen catheter in place. Hemodynamically stable on no pressors. WBC count of 8.6 with a hemoglobin 8.5 and a platelet count of 217. BUN is 51 with a creatinine of 2.28 and a sodium level is at 141 and a bicarb level is at 17. The patient is moving all 4 extremities without any limitation. The patient is currently afebrile. Nephrology is on the case regarding MARYLOU which is probably secondary to ATN and has creatinine is being monitored. Fluid balance over the past 24 hours has been 250 cc positive and the patient shows no signs of any significant fluid overload. The patient is currently on IV Zosyn regarding the possibility of an aspiration/E. coli urinary tract infection and is stage III right heel wound. She remains on bronchodilators. She is on no pressors for now. No other significant events overnight. As mentioned, she was extubated yesterday and the chest x-ray shows distal stable left-sided pleural effusion. The echocardiogram that was done on 08/20/2023 showed a preserved left ventricular ejection fraction, no significant valvular abnormalities. The patient also had Doppler of the lower extremity on 08/25/2023 that revealed no evidence of any DVT. There was a prominent lymph node in the right groin measuring 2.6 cm in size. The patient did have a catheter in her right IJ at the time of admission that was removed and the cultures came back positive for corynebacterium. On today's evaluation of 08/27/2023, the patient is being seen for a follow-up. Patient is postcardiac arrest and the patient is having some signs of anoxic encephalopathy. She was restless and confused and somewhat agitated. Based on that, the patient was started on Precedex yesterday and Precedex is running at 0.4 mcg/kg/h. No significant agitation at this point in time. She seems to be calm and comfortable. She follows occasional simple commands. No agitation. No focal neurological deficits. She is currently on 2 L of oxygen nasal cannula and she is also on lactated Ringer at rate of 50 cc an hour. Urine output is in order of 30 cc an hour. Overall fluid balance has been +700 cc over the past 24 hours. The blood work shows a WC count of 8.2 with a hemoglobin 8.6 and a platelet count of 200, BUN is at 48 with a creatinine of 2.22 and a sodium level of 141. The serum bicarb level is at 18. A repeat limited echocardiogram was done yesterday and the patient showed improvement and in the LV function and the patient ejection fraction is in order of 55 to 60% without any significant segmental wall motion abnormalities. The patient is afebrile. The patient is hemodynamically stable at this point in time. Nephrology on the case regarding her chronic renal failure. On today's evaluation of 08/28/2023, the patient continues to require Precedex for increased agitation and restlessness. While off sedation, thrashes around. Currently she is calm and comfortable being on Precedex at 0.7 mcg/kg/h. She is on 3 L of oxygen by nasal cannula. No signs of any respiratory distress. No focal neurological deficits. She continues to complain of chest wall soreness and pain related to CPR and based on that the patient was given IV Tylenol and she is also [place] for pain control. WBC count is 7.1 with a hemoglobin of 8.7 and a platelet count of 214. BUN is at 50 with a creatinine of 2.45 and a sodium level of 140 with a potassium level of 5.1. She is afebrile. She is hemodynamically stable at this point in time. Progress note dated August 29, 2023. The patient is seen today in room 255, intensive care unit. The patient was extubated from mechanical ventilation on August 24. She continues on oxygen by nasal cannula at 2 L. She is getting saline at 50 cc an hour. She does continue on Zosyn. She also continues on dexmedetomidine at 0.4 mcg/kg/h, for ongoing restlessness and agitation. Current labs include a white count of 6, hemoglobin 8.4, hematocrit 27.4, and a normal platelet count. Sodium 144, pot assium 4.9, chlorides 117, CO2 18, BUN 54, creatinine 2.86. The patient's glucose was 103. Calcium is 7.6. Urine from August 21 with positive for Escherichia coli. Catheter tip, from August 22 with positive for Corynebacterium species. Reevaluated today on 09/04/2023, patient is about the same, remains in the ICU as an overflow, patient has intermittent episodes of agitation and restlessness, remains on Seroquel, remains on Ativan as needed, patient is requiring intermittent medications for sedation, she is not requiring any more Precedex. Patient has a bedside sitter, and she needs almost constant attention. Labs including CBC and basic metabolic profile are normal BUN however is 67 crea tinine 2.04 Reevaluated 09/05/2023, patient is about the same, continues to have intermittent episodes of agitation and restlessness, she is on D5W@50 mL/h she is also on Ativan 0 0.5 mg every 4 hours as needed intermittently receiving Lasix and she is on it now maintenance 40 mg IV push every 12 hours I cut it down to once a day. Continues to require sitter at bedside because of her intermittent episodes of agitations, today I added Risperdal 0.25 mg daily. WBC count is 6.5 hemoglobin 7.3 basic metabolic profile is normal BUN is 57 creatinine 1.89, improving Reevaluated on 09/06/2023, patient remains in the ICU, remains agitated intermittently, combative, when I evaluated the patient she was very calm and resting, sleeping, however apparently overnight the patient was extremely agitated and did not sleep much last night. Her Risperdal dose will be increased to 0.25 mg twice daily. The meantime patient is on many other medications to keep her calm and sedated. Patient has a sitter at bedside, does not seem to be in any distress labs today are unremarkable except hemoglobin of 7.6 basic metabolic profile is normal BUN is 52 creatinine 1.71 steadily improving over the last week Patient was reevaluated today on 09/07/2023, patient remains in the ICU, patient continues to have intermittent episodes of confusion, agitation, restlessness, does not seem to be in any respiratory distress, although her chest x-ray did show evidence of pulmonary edema and I recommended a dose of Lasix 40 mg IV push to be given now. Patient is on different types of medications to keep her calm, however does not seem to be helping, and now I am recommending a psychiatric consultation on this patient. WBC count is 6.0 hemoglobin 8.3 electrolytes are normal BUN is 40 creatinine 1.61, steadily improving. Patient is receiving Seroquel 150 twice daily she is also receiving Risperdal 0.25 twice daily, Ativan as needed but she is not requiring much Ativan. Patient is also on multiple cardiac meds. Patient was evaluated today on 09/08/2023, she is now out of the ICU, continues to have intermittent episodes of confusion and agitation, she has a sitter at bedside, today she seems to be [place]. Chest x-ray today showed evidence of worsening pulmonary edema although clinically the patient seems to be doing fine, hence I recommended increasing her Lasix up to 40 mg IV push twice daily. Patient is yet to be seen by psychiatry on consultation. WBC count is 3.4 hemoglobin 7.3 basic metabolic profile is normal BUN is 38 creatinine 1.54. Chest x-ray as noted earlier. Progress note dated September 09, 2023. The patient is seen today in room 356. She is currently on 4 L of oxygen. She is receiving Zosyn. The patient has episodes of confusion and agitation, and has had a sitter at the bedside, for quite some time. Currently, speech pathology is in the room with the patient, evaluating her ability to properly take food by mouth. Laboratory data includes a white count 4.7, hemoglobin 9.8, hematocrit 30.8, and a platelet count of 227,000. Sodium 143, potassium 3.5, chlorides 106, CO2 30, BUN 32, creatinine 1.53. Glucose is 143. Calcium is 8.3. Previous culture data shows urine positive for E. coli, August 21, and a catheter tip with corynebacterium species, from August 22. Chest x-ray from today shows some cardiomegaly, and mild pulmonary vascular congestion. Progress note dated September 10, 2023. The patient is seen today in room 356. She is currently on oxygen at 4 L. She is getting D5W at 50 cc an hour. The patient is much less agitated today. Still has a sitter. Current labs include a white count of 6, hemoglobin 9.5, hematocrit 31.4, and a normal platelet count. Sodium 140, potassium 3.7, chlorides 104, CO2 32, BUN 27, and creatinine 1.42. Glucose is 177. Calcium is 8.1. The patient's urine had evidence of Escherichia coli. The patient also had a catheter tip that was positive for Corynebacterium species. The patient's currently on Zosyn still. Progress note dated September 11, 2023. The patient was seen again in room 356. Currently, she is on 5 L of oxygen. She is getting D5W at 50 cc an hour. She is currently not on any antibiotic. She seems less agitated and restless today. Current labs include a glucose of 137. The patient denies any shortness of breath, coughing, wheezing, chest tightness, or phlegm production. She also denies any chest pain or pressure, palpitations, or fluttering in the chest. She denies any nausea, vomiting, vashti rrhea, or abdominal pain. Progress note dated September 12, 2023. The patient is seen today in room 356. A sitter is in the room with the patient. The patient is currently very agitated and restless. She is getting D5W at 50 cc an hour. Her nasal O2 was turned up to 7 L by high flow. We have asked psychiatry to come back and evaluate her for her agitation. Blood gases done yesterday show pO2 of 57, pCO2 49, pH is 7.45. That apparently was 40%, but it is unclear, if the patient was actually wearing her oxygen. Current labs include a white count 5.3, hemoglobin 9.1, hematocrit 30.6, and a normal platelet count. Sodium 135, potassium 3.9, chlorides 97, CO2 33, BUN 33, and creatinine 1.88. Glucose is 129. Calcium is 7.7. Chest x-ray done September 11, shows a diffuse hazy appearance over both lung bowen. Progress note dated September 13, 2023. The patient is seen today in room 356. A sitter is still present. Currently, the patient is on oxygen at 5 L by nasal cannula. She is not receiving any IV fluids. Labs include a white count 5.1, hemoglobin 9.5, hematocrit 30.3, and a normal platelet count. Sodium 134, potassium 3.6, chlorides 98, CO2 30, BUN 32, creatinine 1.6. Calcium is 8. Glucose is 81. Chest x-ray is compared to previous x-rays, and shows a stable examination. Progress note dated September 14, 2023. The patient was seen today in room 356. She was very agitated, and security was called. She is currently on 4 L of oxygen. She is not receiving any IV fluids. We have asked psychiatry to come back and evaluate the patient, and make recommendations in regards to her agitation, confusion, and disorientation. Current labs include a white count 5.1, hemoglobin 8.8, hematocrit 29.6, and a platelet count of 236,000. Sodium 137, potassium 3.8, chlorides 102, CO2 28, BUN 32, creatinine 1.57. Calcium is 8. Magnesium 1.7. Progress note dated September 15, 2023. The patient was again seen in room 356. The patient has been weaned down to 2 L. She is not receiving any IV fluids. She was started on daptomycin by infectious diseases. The patient is much less agitated today. She still has a sitter in the room. No new laboratory data today except a glucose of 88. Objective - Vital Signs Vital signs: Vital Signs Temp 97.4 F L 09/15/23 08:35 Pulse 89 09/15/23 08:35 Resp 20 09/15/23 08:35 BP 136/88 09/15/23 08:35 Pulse Ox 97 09/15/23 08:51 FiO2 3 09/02/23 04:00 Intake & Output 09/14/23 09/15/23 09/15/23 18:59 06:59 18:59 Intake Total 138 20 128 Output Total 1250 350 300 Balance -1112 -330 -172 Weight 53 kg Intake: IV 20 20 10 Invasive Line 9 20 20 10 Oral 118 118 Output: Urine 1250 350 300 Other: Voiding Method Indwelling Catheter Indwelling Catheter Indwelling Catheter ABP, PAP, CO, CI - Last Documented Arterial Blood Pressure 125/73 - Exam No acute distress, currently on nasal O2 at 2 L nasal cannula. HEENT examination is grossly unremarkable. Neck supple. Full range of motion. No adenopathy thyromegaly or neck vein distention. Cardiovascular examination reveals regular rhythm rate. S1-S2 normal. No S3 or S4. No discernible murmur noted. Heart sounds are distant. Heart rate 89 bpm. Lungs reveal scattered bilateral rhonchi. No wheezes or crackles. Breath sounds equal bilaterally. Saturation is 97 %. Abdomen soft with bowel sounds. Extremities are intact. No cyanosis clubbing or edema. Skin is without rash or lesion. Neurologic examination is brief but nonfocal. Patient is much more calm today. - Labs CBC & Chem 7: 09/14/23 07:41 09/14/23 07:41 Labs: Abnormal Lab Results - Last 24 Hours (Table) 09/15/23 Range/Units 06:21 POC Glucose (mg/dL) 61 L (70-110) mg/dL Assessment and Plan Assessment: Cardiopulmonary arrest, x 2, with cardiopulmonary resuscitation, and return of spontaneous circulation on 08/23/23. Acute hypoxic respiratory failure, postcardiac arrest. S/P intubation, and mechanical ventilation, secondary to cardiopulmonary arrest, August 23, 2023. She was extubated on 08/25/23. Encephalopathy. History of congestive heart failure (HFPEF) Coronary artery disease/cardiomyopathy and the patient is post non-ST segment elevation myocardial infarction. Stage III chronic kidney disease. Right heel pressure ulcer, stage III. Subacute fracture of the medial and lateral malleolus. History of hypertension. History of hyperlipidemia. History of type 2 diabetes mellitus. History of severe pulmonary hypertension. History of COPD. History of peripheral neuropathy. Chest wall pain related to CPR. Plan: Plan dated August 23, 2023. The patient is seen in the intensive care unit, room 255. I came in early this morning to place an arterial line, and the internal jugular triple-lumen catheter. The patient had poor IV access. The patient is currently on norepinephrine at 1.4 mcg/min. He is getting saline at [address] A [address] scan of the brain, was negative. The patient blood gases show pO2 of 75, pCO2 of 49, pH of 7.44. We will continue to follow make recommendations along the way. The patient's overall prognosis remains very guarded. The patient continues on ceftriaxone, and fluconazole. Prognosis is guarded. Plan dated August 24, 2023. The patient is seen today in room 255. She remains on mechanical ventilator. The urine is showing evidence of Escherichia coli. The patient continues on Zosyn. The patient's EEG shows slowing, consistent with severe encephalopathy. There was no evidence of any seizure activity. Labs, x-rays, and all medications are reviewed. We will continue to follow the patient, make recommendations along the way. The patient's overall prognosis remains very guarded. Today we make some ventilator changes, including dropping the tidal volume down from 400, down to 350, and the FiO2, being reduced to 40%, for 50%. Plan dated August 25, 2023. The patient is seen today in room 255. She remains on the mechanical ventilator. Today, we will do a daily interruption of sedation, and a spon taneous breathing trial. Dopplers of the lower extremities were negative. She remains on Zosyn for Escherichia coli urinary tract infection. Overnight she developed bradycardia. For that she was started on dopamine by cardiology. The patient is getting saline at 50 cc an hour, propofol at 35 mcg/kg/min. Blood gases are reasonable. Will place the patient on PSV 5, CPAP 5, get some weaning parameters, and see if we can extubate the patient. We will continue to follow. Labs, x-rays, and medications are reviewed. Prognosis is guarded. Plan dated August 29, 2023. The patient will continue with dexmedetomidine, and hopefully, it will be gradually weaned off. The patient was started on Seroquel, 100 mg twice a day. The patient is currently hemodynamically stable, with no need for vasopressors. Cardiac rhythm is also stable. A repeat echocardiogram has been ordered. The patient is on [place] for pain control. Also, the patient continues on Zosyn. Other medications include Lipitor, Norvasc, and Imdur, as well as subcutaneous heparin for DVT prophylaxis. We will continue to monitor, in the intensive care unit. Prognosis is certainly very guarded. Neurologic status is of a concern. Appreciate input by neurology. Plan dated September 09, 2023. The patient is seen today in room 356. The patient continues on Zosyn. The patient is on 4 L of oxygen. There is a sitter at the bedside. She continues on appropriate medications including Risperdal and Seroquel. In addition, the patient continues on GI prophylaxis, and DVT prophylaxis. Though Zosyn is primarily for the cellulitis. We will continue to follow make recommendations along the way. Prognosis is guarded. She does have intermittent episodes of confusion agitation, and yelling out. Plan dated September 10, 2023. The patient is seen today in room 356. The patient still has a sitter. The patient is currently on 4 L. She continues on Zosyn. She is getting D5W at 50 cc an hour. Labs, x-rays, and medications are reviewed. She continues on appropriate medications. We will continue to follow make recommendations along the way. Prognosis is guarded. She is a bit more alert, and less agitated today. Plan dated September 11, 2023. The patient is no longer on antibiotics. She is on oxygen, between 4 to 5 L by nasal cannula. She is getting D5W at 50 cc an hour. No new labs today. She is apparently doing better, and less agitated, less confusion. We will continue to follow. Prognosis is guarded. Labs, x-rays, and all medications are reviewed. Plan dated September 12, 2023. The patient is currently quite agitated. We have asked psychiatry to come back and evaluate the patient, to see if there is anything more they can add, for the patient's restlessness, and agitation. She is currently on 7 L high flow nasal O2. She is given D5W at 50 cc an hour. Blood gases from yesterday have been reviewed. Labs, x-rays, medications are reviewed. We will continue to follow make recommendations along the way. Prognosis is guarded. Plan dated September 13, 2023. The patient seems to be much more calm today. Labs, x-rays, medications are reviewed. She has been weaned down to 5 L by nasal cannula. We will continue to follow the patient, make recommendations. She is not receiving any IV fluids. Patient's overall prognosis remains guarded. Her mental status seems to be better today, and she seems much more calm, much less agitated. Nonetheless, a sitter is still present. Plan dated September 14, 2023. The patient was much more agitated, and confused today. So much so, security was called. She does have a sitter in the room. Labs, x-rays, medications are reviewed. The patient is currently on 4 L nasal cannula. She is not receiving any IV fluids. Labs, x-rays, and medications are reviewed. We will continue to follow the patient, and make recommendations along the way. Prognosis is guarded. Plan dated September 15, 2023. The patient appears to be doing reasonably well. The patient's been weaned down to 2 L of oxygen. She is much less confused and agitated today. Labs, x-rays, medications are reviewed. The patient is not receiving any IV fluids. She was started on daptomycin per infectious diseases. We will continue to follow, and make recommendations along the way. The patient's overall prognosis remains guarded. Time with Patient: Less than 30
--- NOTE | 2023-09-15 12:36 | P.PN ---
Subjective Progress Note Date: 09/15/23 57-year-old female came in with complaints of shortness of breath and orthopnea found to be in congestive heart failure exacerbation patient has congestive heart failure with reduced ejection fraction in the past patient has increasing pedal edema. Patient also has an ulcer in the right foot stage III-IV which appeared to be infected we will consult wound care and infectious disease. Patient was on hemodialysis during last hospitalization her creatinine presently is 1.5 which is significantly improved patient potassium is 5.5, patient is on Entresto and Aldactone Aldactone will be held Entresto will be continued since she is receiving IV Lasix and expecting her potassium to improve if it does not improve or get worse then Entresto need to be discontinued as well. Patient has hypervolemic hyponatremia and hyperglycemia. 08/21/2023 Was evaluated today on the medical floor. Patient was continued on IV Lasix overnight however she was no longer reporting any shortness of breath and her lower extremity edema has improved. She was taken off of the Lasix at this time due to increased creatinine up to 2.31 additionally potassium remains elevated at 5.7. Echocardiogram comes back showing an improved ejection fraction of 60 to 65% because of this and also the hyperkalemia patient will not be continued on entresto. Patient was evaluated by infectious disease who felt like that heel ulcer on the right side was more likely a pressure injury stage III and is recommending local wound care to continue with Aquacel. Patient is reporting significant pain to the right foot and feels like it is fractured. Upon review of the patient's chart she did have a x-ray completed of this 12 days ago ordered by her doll wigs hackler Dr. Mayen. Ankle x-ray did review a mildly displaced acute distal fibular fracture. Repeat x-ray of the foot and ankle completed today does reveal a subacute fractures of the medial and lateral malleolus. The lateral malleolus fracture was seen on the patient's prior exam the medial malleolus fracture may be new in the interval and this would be considered an unstable ankle fracture. There is interval 6 mm displacement of the lateral malleolus. There is a deep soft tissue ulcer at the plantar heel with no clear radiographic findings of a contagious osteomyelitis at this time. Orthooedics was consulted for this. 08/22/2023 Patient evaluated in follow-up today resting in bed. She was taken off of the Lasix remains off at this time. Bladder scan was requested and not done yesterday to rule out urinary retention, creatinine today is increased up to 2.56. Bladder scan was done require urinary straight catheterization of 550 mL taken out. Urinalysis was sent which is significantly abnormal. Patient is also noted to have multiple genital lesions which appear wartlike she admits to not having any routine gynecological screenings for many years. She is not having any vaginal bleeding or discharge. Renal ultrasound has been ordered to rule out any obstructive uropathy. 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 Patient upon arrival to the intensive care unit had another episode of cardiac arrest patient had bradycardia while on pressors in the ICU patient was intubated following the first cardiac arrest and is currently on the mechanical ventilator 50% FiO2. Chest x-ray showing similar interstitial and patchy component airspace disease right greater than left. There is a possible trace left pleural effusion. A brain CT which shows no acute intracranial process. Blood work today shows a white blood cell count of 13.8, hemoglobin 9.5, sodium level of 135, BUN of 62, creatinine of 2.76. AST ALT and alk phosphatase are significantly elevated consistent with a shock liver. TSH 3.310. Urinalysis is abnormal. Her urine culture is showing gram-negative bacilli patient is covered for the urinary tract infection as well as aspiration with IV Zosyn being managed by infectious disease. Patient is currently sedated with propofol and did require vasopressor support with Levophed which has been weaned at this time. Will discontinue the gabapentin patient is continued on aspirin Plavix and statin has been placed on hold. There is concern for possible arrhythmia precipitating the asystole additionally we need to rule out embolism and a D-dimer has been ordered. 08/24/2023 Patient is seen in follow-up today continues in the ICU on mechanical ventilation. FiO2 is 50% although titrating and was just placed at 40% with a PEEP of 5. Chest x-ray today shows that the ET tube is 7 mm from the sonam suggesting a pulled back 2 cm and reassess and also suspected underlying vascular congestion. Neuro is following and per nursing staff patient is following some simple commands and undergoing sedation holidays. Patient noted to have reduced EF of 30 to 35% and cardiology had been following. Will reconsult and appreciate input and recommendations. patient did have dialysis catheter removed and sent for cultures which are pending. Infectious disease following and patient is maintained on antibiotic. D-dimer is elevated above 16 and will attempt to obtain a VQ scan.57-year-old female came in with complaints of shortness of breath and orthopnea found to be in congestive heart failure exacerbation patient has congestive heart failure with reduced ejection fraction in the past patient has increasing pedal edema. Patient also has an ulcer in the right foot stage III-IV which appeared to be infected we will consult wound care and infectious disease. Patient was on hemodialysis during last hospitalization her creatinine presently is 1.5 which is significantly improved patient potassium is 5.5, patient is on Entresto and Aldactone Aldactone will be held Entresto will be continued since she is receiving IV Lasix and expecting her potassium to improve if it does not improve or get worse then Entresto need to be discontinued as well. Patient has hypervolemic hyponatremia and hyperglycemia. 08/21/2023 Was evaluated today on the medical floor. Patient was continued on IV Lasix overnight however she was no longer reporting any shortness of breath and her lower extremity edema has improved. She was taken off of the Lasix at this time due to increased creatinine up to 2.31 additionally potassium remains elevated at 5.7. Echocardiogram comes back showing an improved ejection fraction of 60 to 65% because of this and also the hyperkalemia patient will not be continued on entresto. Patient was evaluated by infectious disease who felt like that heel ulcer on the right side was more likely a pressure injury stage III and is recommending local wound care to continue with Aquacel. Patient is reporting significant pain to the right foot and feels like it is fractured. Upon review of the patient's chart she did have a x-ray completed of this 12 days ago ordered by her doll wigs hackler Dr. Mayen. Ankle x-ray did review a mildly displaced acute distal fibular fracture. Repeat x-ray of the foot and ankle completed today does reveal a subacute fractures of the medial and lateral malleolus. The lateral malleolus fracture was seen on the patient's prior exam the medial malleolus fracture may be new in the interval and this would be considered an unstable ankle fracture. There is interval 6 mm displacement of the lateral malleolus. There is a deep soft tissue ulcer at the plantar heel with no clear radiographic findings of a contagious osteomyelitis at this time. Orthooedics was consulted for this. 08/22/2023 Patient evaluated in follow-up today resting in bed. She was taken off of the Lasix remains off at this time. Bladder scan was requested and not done yesterday to rule out urinary retention, creatinine today is increased up to 2.56. Bladder scan was done require urinary straight catheterization of 550 mL taken out. Urinalysis was sent which is significantly abnormal. Patient is also noted to have multiple genital lesions which appear wartlike she admits to not having any routine gynecological screenings for many years. She is not having any vaginal bleeding or discharge. Renal ultrasound has been ordered to rule out any obstructive uropathy. 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 Patient upon arrival to the intensive care unit had another episode of cardiac arrest patient had bradycardia while on pressors in the ICU patient was intubated following the first cardiac arrest and is currently on the mechanical ventilator 50% FiO2. Chest x-ray showing similar interstitial and patchy component airspace disease right greater than left. There is a possible trace left pleural effusion. A brain CT which shows no acute intracranial process. Blood work today shows a white blood cell count of 13.8, hemoglobin 9.5, sodium level of 135, BUN of 62, creatinine of 2.76. AST ALT and alk phosphatase are significantly elevated consistent with a shock liver. TSH 3.310. Urinalysis is abnormal. Her urine culture is showing gram-negative bacilli patient is covered for the urinary tract infection as well as aspiration with IV Zosyn being managed by infectious disease. Patient is currently sedated with propofol and did require vasopressor support with Levophed which has been weaned at this time. Will discontinue the gabapentin patient is continued on aspirin Plavix and statin has been placed on hold. There is concern for possible arrhythmia precipitating the asystole additionally we need to rule out embolism and a D-dimer has been ordered. 08/24/2023 Patient is seen in follow-up today continues in the ICU on mechanical ventila tion. FiO2 is 50% although titrating and was just placed at 40% with a PEEP of 5. Chest x-ray today shows that the ET tube is 7 mm from the sonam suggesting a pulled back 2 cm and reassess and also suspected underlying vascular congestion. Neuro is following and per nursing staff patient is following some simple commands and undergoing sedation holidays. Patient noted to have reduced EF of 30 to 35% and cardiology had been following. Will reconsult and appreciate input and recommendations. patient did have dialysis catheter removed and sent for cultures which are pending. Infectious disease following and patient is maintained on antibiotic. D-dimer is elevated above 16 and will attempt to obtain a VQ scan. 08/25/23 : Patient seen and evaluated at bedside, patient extubated around noon, transition to 5 L of oxygen to nasal cannula. Family at bedside, blood work reviewed hemoglobin 10.3, serum chemistry reviewed sodium 140 potassium 4.8 BUN 57 creatinine 2.49 calcium of 7. 08/26/23 : Patient seen and evaluated at bedside, patient remains in medical ICU, does complain of chest pain from CPR. Patient has been weaned off dopamine, cardiology following, blood work reviewed, hemoglobin 8.5 platelet count of 217, serum chemistry shows sodium 141 BUN 51 creatinine 2.28. Followed up by nephrology as well MARYLOU secondary to ATN continue to monitor intake and output 08/27/23: Patient seen and evaluated bedside, on evaluation patient is disoriented, patient is drowsy however likely having acute delirium. Seen by cardiology echocardiogram shows preserved ejection fraction continue with current medical management, patient on Precedex for acute delirium, continue to remain on oxygen supplementation with nasal cannula blood work reviewed CBC showed WBC 8.2 hemoglobin 8.6 serum chemistry showed creatinine of 2.22. Patient remains delirious, daughter at bedside all questions answered 08/28/2023 Patient was agitated earlier requiring Seroquel and Placed on Precedex because she was has risk to self and others Currently when I saw the patient she was sleepy However she is not tachypneic show does not look in pain. Vitals are stable She is saturating 91% on 2 L oxygen via nasal cannula She remains on Zosyn for pneumonia and UTI She is on normal saline at 50 mL/h 08/29/2023 Patient remains sleepy, she still has some encephalopathy But she is on Precedex which will be tapered off by pulmonary team today to assess her mentation as well. Patient has been followed by neurology for suspected anoxic brain injury after her cardiac arrest and return of circulation on 08/22. There is no evidence of seizure-like activity She has catheter tip infection with culture growing Corynebacterium species and she is currently covered with Zosyn which also help for her right heel pressure ulcer and aspiration pneumonia and UTI. Cardiology evaluated the patient and there is no clear evidence for her cardiac arrest although she has history of coronary artery disease and previous stents. Currently with no chest pain. She remains on aspirin and Plavix, gentle hydration, IV steroids 08/30/2023 Today her sedation remains off however patient mentation not completely resolved, it is somewhat better as she was more sleepy yesterday She is eating okay, swallowing is fine She was started on IV Lasix twice daily per nurse epidemiologist. She has good urine output and normal send discontinued She is hemodynamically stable and oxygenation is acceptable Remains on aspirin and Plavix and Seroquel 08/31/23: Seen and evaluated at bedside, patient remains on 4 L of oxygen, blood work reviewed, WBC 7.3 hemoglobin 9.1 platelet count of 203 glucose 119. CBC reviewed showed WBC 7.3 hemoglobin 9.1 platelet count of 203.. Neurology consulted and following. Patient is awake and alert able to answer questions and follow commands sister at bedside all questions answered 09/01/23: Seen and evaluated at bedside, patient vitals reviewed, serum chemistry reviewed sodium 145 potassium 4.6 creatinine 2.71, CBC reviewed patient remains on IV Zosyn , appreciate input from nephrology continue patient on IV Lasix, delirium persist 09/02/23: Patient seen and evaluated bedside, patient been admitted for cardiopulmonary arrest, respiratory failure s/p extubation on nasal cannula however continues to remain delirious. Blood work reviewed hemoglobin 8.8, platelet count 226, serum chemistry reviewed creatinine 2.55 potassium 4.5. MRI brain has been ordered which is pending, patient remains disoriented 09/03/2023 Patient is seen in follow-up status post recent extubation maintained on a few liters of pulmonary public safety telecommunicator following closely. Cardiology following as well and adjusted medications recommending continuing with current medication regimen. No change in mentation as patient continues with periods of confusion and restlessness. Medications being adjusted and Ativan as needed has been added. Continue Seroquel. Patient will answer questions appropriately and discuss her health history and can recall her doctors names but will ramble on regarding something irrelevant during conversation. Patient is redirectable. Patient continues with partial cast noted on the lower extremity. Patient continues on IV Lasix and kidney functions are improving nephrology following closely. Plan is for patient to possibly move out of the ICU. Will have PT/OT therapy evaluate the patient and discuss further with consultations along with case management regarding possible ECF versus discharge planning. 09/04/2023 Patient seen in follow-up today and continues to have periods of confusion and restlessness. Patient continues in the ICU with multiple medical consultations following. Hemoglobin was found to be less than 7 today and will transfuse 1 unit of PRBC. Sodium 147 and recommend repeat labs as well. Nephrology is following and patient is continued on IV Lasix. MRI of the brain remains pending and neurology is following. 09/05/2023 Patient is seen and evaluated today continues to be in the ICU needs continuous reinforcement on keeping oxygen on. Patient does have a loss prevention and safety manager at the bedside. Patient is currently resting although remains confused and anxious and agitated at times. Hemoglobin is stable above 7 status post 1 unit of PRBC. Patient continues on IV Lasix daily and nephrology following closely. Patient to continue on IV antibiotics with infectious disease following. 09/06/2023 Patient seen in follow-up today continues to be sleepy at this time although when awake patient is extremely restless and agitated requiring sitter at the bedside. Adjustments to medications being made and Risperdal is being increased and will continue with Seroquel. Ativan as needed. Patient's hemoglobin is stable with no active bleeding noted. Neurology following as patient continues to be unable to obtain an MRI and will have a repeat EEG as well as CT brain per neurology. Patient is afebrile and is continued on antibiotics with infectious disease following. 09/09/2023 Patient seen in follow-up today has been transitioned out of the ICU and current ly on selective unit and continues with loss prevention and safety manager at the bedside. Patient is keeping her oxygen on currently and is on 4 L. Multiple medical consultations following and per nursing staff patient was able to get up and work with physical therapy today. Plan is for ECF when patient's mentation is improved. Patient continues on IV Lasix twice daily as well with nephrology following. Continue Ativan as needed and patient is also maintained on Risperdal twice daily. Patient is afebrile with no reports of chest pain or shortness of breath. Hemoglobin is stable at 9.8 and white count is normal and kidney functions are improving. Continue monitoring Accu-Cheks before meals and at bedtime and will continue with sliding scale. Neurology following and patient is scheduled to undergo repeat brain CT today. Chest x-ray continues to show pulmonary vascular congestion. 09/10/2023 Patient is seen in follow-up today and mentation is much improved with family sitting at the bedside. Patient is able to have conversation and reports she is going home although patient has significant weakness and will be requiring ECF on discharge. Case management following awaiting for ECF evaluation and will require insurance authorization. Patient is afebrile and has been on IV antibiotics in the form of Zosyn with infectious disease following and white count remains normal and patient will be monitored off antibiotic therapy. Patient also continues on IV Lasix twice daily along with treatments and continued supplemental oxygen. Patient is on 4 L via nasal cannula. 09/11/2023 Patient is seen in follow-up this morning continues to display periods of confusion with increased agitation and restlessness. Per nursing staff patient had reports of hallucinating and seeing things crawling in the room that were not there. Patient is extremely anxious today although continues to be more awake. Patient reports is eating without much of an appetite. Patient has been compliant with working with physical therapy and will require ECF on discharge. Patient continues with loss prevention and safety manager as patient is impulsive and attempts to get up out of the bed impulsively. Will ask for psychiatry to reevaluate and adjust medications. Will discontinue Dilaudid as the hallucinations appeared shortly a fter receiving this medication. Patient does elicit pain in the right leg and foot. 09/12/2023 Patient is seen in follow-up today and continues with confusion and requiring a sitter for safety. Patient has been working with physical therapy and reports she is doing well and ready to go home although she will require ECF for continued strength and mobility. Patient is extremely impulsive and restless at times. Asking psychiatry to reevaluate and will adjust medications. Family also working on obtaining guardianship as patient is not making sound decisions for herself medically. Family report they also cannot take her home and take care of her as they are elderly. Patient is afebrile with no reported chest pain or shortness of breath. Patient continues on 4 L and continues to remove her oxygen frequently. Patient is maintained on IV Lasix and being transition to daily. Continue monitoring kidney functions and nephrology is following. Being monitored off antibiotic therapy 09/13/2023 Patient is seen in follow-up this morning continues with a sitter at the bedside. Per nursing staff patient had a large black bowel movement and was incontinent. Occult Was positive and stat repeat hemoglobin was obtained and actually improved from previous at 9.5. Patient is maintained on aspirin, Plavix, and heparin and will hold for now. No GI available and will consult general surgery for evaluation of possible GI bleed. Contents do not appear to be melanotic on exam although dark stools are noted. Multiple other consultations following as well as psychiatry who reevaluated and adjusted medications. Mentation is improved today and less anxious and agitated and per nursing staff more appropriate today. Will continue current regimen and also continue [employer] and narcotic agents. 09/14/2023 Patient is evaluated in follow-up with sister at the bedside as well as family. General surgery is planning for an upper endoscopy on Saturday with no further reports of any black or bloody stool. Aspirin Plavix and heparin remain on hold. Patient was seen in follow-up by psychiatry for now continues on Prolixin as needed, olanzapine as needed. Patient is maintained on risperidone twice a day scheduled. Patient's mentation she is currently alert x 1-0 she is hallucinating and appears delirious. Continues on IV Lasix 40 mg every 12 hours. Continues on IV daptomycin. Continues in the cast to the right lower extremity. Bun is 32, creatinine is 1.57, magnesium 1.7. White blood cell count 5.1. 09/15/2023 Patient evaluated today with loss prevention and safety manager at the bedside. Patient has no further episodes of bloody stool and is scheduled to undergo an enema Skippy on Saturday. Patient is more awake alert today and is more appropriate although she continues to have hallucinations. Patient continues on IV daptomycin with concerns for lower extremity cellulitis. No significant complaints today. Review of systems: Constitutional: No reports of fatigue, fever, or chills, reports feeling anxious Cardiovascular: No reports of chest pain or palpitations Respiratory: No reports of shortness of breath or cough GI: No reports of nausea, vomiting, reports having multiple large dark stools : No reports of dysuria or retention Neurovascular: reports of generalized weakness All medications have been reviewed PHYSICAL EXAMINATION: GENERAL: The patient is on nasal cannula, awake alert and oriented x 2, much more appropriate today, elderly appearing, unkept, ill-appearing HEENT: Pupils are round and equally reacting to light. EOMI. CARDIOVASCULAR: S1 and S2 muffled PULMONARY: Decreased breath sounds bilaterally with some scattered rhonchi noted ABDOMEN: Soft, nontender, nondistended, normoactive bowel sounds. No palpable organomegaly. MUSCULOSKELETAL: No joint swelling or deformity. EXTREMITIES: Right lower extremity bandage with partial cast noted NEUROLOGICAL: pupils reactive, less anxious although continues, cooperative, tearful SKIN: Patient has right plantar surface ulcer on the posterior foot stage III-IV with areas of necrotic tissue. Casting and Tam wrap noted of the right lower extremity Assessment: Asystole/cardiopulmonary arrest x 2 with CPR/ROSC Respiratory failure requiring intubation s/p extubation 08/25/2023 Large black stools, concern for GI bleed Acute metabolic encephalopathy with concerns of anoxia, status postcardiac arrest Congestive heart failure with systolic dysfunction acute on chronic exacerbation Acute hypoxic respiratory failure secondary to CHF Ischemic cardiomyopathy with improved EF Acute kidney injury secondary to ATN on chronic kidney disease stage III Urinary tract infection with E. coli Subacute fracture of the medial and lateral malleolus, orthopedics following Right heel stage III pressure injury continue local wound care with aquacel ID following. Genital lesions, will need cable layer follow up outpatient for routine screenings Hypertension Hyperlipidemia Type 2 diabetes mellitus uncontrolled hgb a1c 12.1 Severe pulmonary hypertension COPD without any acute exacerbation Peripheral neuropathy Obesity with a body mass index of 30.8 GI prophylaxis DVT prophylaxis Full code Plan: Patient being followed by multiple medical consultation and is continued on 3 S. stepdown unit from the ICU. network developer at the bedside Wean FiO2 as tolerated and patient is maintained on 3 to 4 L via nasal cannula. Patient continues to remove oxygen tubing and oxygen saturations drop into the low 80s. Patient continues on IV Lasix daily and chest x-ray showing continued pulmonary vascular congestion, weaning FiO2 as tolerated. Nephrology following and kidney functions are improving Patient was able to work with PT/OT therapy again today and will await updated notes with case management following as plans are for patient to go to ECF. Chart being reviewed and patient will also require insurance authorization. Patient will also need for sitter removed for at least 24 hours before ECF considers accepting the patient. Family working on obtaining guardianship to make medical choices for patient. Mentation continues to wax and wane although patient is more awake today and able to respond and answer questions more appropriately. All WAITER/WAITRESS DINING CAR and narcotic agents being held and patient was reevaluated by psychiatry with adjustments to medications and will continue current regimen. Continue loss prevention and safety manager at this time as patient is known to be very impulsive and attempts to get out of the bed very frequently After multiple bowel movements patient was noted to have a mild rectal prolapse per nursing staff and was informed to keep the area moist and will hopefully retract on its own per surgery. Surgery to be notified if worsening. EGD to be done Saturday by general surgery after cardiology and other consultation clearance. Patients hemoglobin remains stable at 8.8. Infectious disease following and patient was being closely monitored off antibiotic therapy. Continued concerns of that right lower extremity as it has been casted and there is a chronic wound. Antibiotics being initiated in the form of daptomycin. Patient remains afebrile and white count is within normal limits. Repeat CT of the brain is negative for acute process. Neurology following and patient has been unable to receive an MRI given patient's continued restlessness and anxiety Continue to monitor hemoglobin and transfuse if 7 or less. The impression and plan of care has been dictated by Susana Roman, Nurse Practitioner as directed. Dr. Ricardo MD I have performed a history and physical examination and medical decision making of this patient, discussed the same with the dictator, and agree with the dictators assessment and plan as written, documented as a scribe. Based on total visit time, I have performed more than 50% of this visit. Objective - Vital Signs Vital signs: Vital Signs Temp 97.5 F L 09/14/23 15:56 Pulse 80 09/15/23 04:20 Resp 22 09/15/23 04:20 BP 126/57 09/15/23 04:20 Pulse Ox 82 L 09/15/23 04:20 FiO2 3 09/02/23 04:00 Intake & Output 09/14/23 09/15/23 09/15/23 18:59 06:59 18:59 Intake Total 138 20 Output Total 1250 350 Balance -1112 -330 Weight 53 kg Intake: IV 20 20 Invasive Line 9 20 20 Oral 118 Output: Urine 1250 350 Other: Voiding Method Indwelling Catheter Indwelling Catheter ABP, PAP, CO, CI - Last Documented Arterial Blood Pressure 125/73 - Labs CBC & Chem 7: 09/14/23 07:41 09/14/23 07:41 Labs: Abnormal Lab Results - Last 24 Hours (Table) 09/14/23 09/14/23 09/15/23 Range/Units 07:41 07:41 06:21 RBC 3.14 L (3.80-5.40) m/uL Hgb 8.8 L (11.4-16.0) gm/dL Hct 29.6 L (34.0-46.0) % MCHC 29.9 L (31.0-37.0) g/dL RDW 17.1 H (11.5-15.5) % Lymphocytes # 0.7 L (1.0-4.8) k/uL BUN 32 H (7-17) mg/dL Creatinine 1.57 H (0.52-1.04) mg/dL POC Glucose (mg/dL) 61 L (70-110) mg/dL Calcium 8.0 L (8.4-10.2) mg/dL Assessment and Plan Time with Patient: Less than 30
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
--- NOTE | 2023-09-15 15:24 | P.PN ---
Subjective Progress Note Date: 09/14/23 Principal diagnosis: Reason for follow-up is right heel diabetic foot ulcer Patient is a 57-year-old female with a past medical history significant for diabetes mellitus hypertension hyperlipidemia history of renal insufficiency requiring dialysis currently not on dialysis and the patient also have a chronic nonhealing wound to the right heel area, present to the hospital with increasing shortness of breath and swelling concerning for fluid overload.Patient did have a cardiac arrest around 4 AM 08/23/2023 with the patient went into asystole got resuscitated intubated and transferred to the ICU subsequently have another cardiac arrest with PEA rhythm not resuscitated. On today's evaluation that is 09/14/2023, patient has been afebrile, patient is breathing comfortably and is currently on 4 L current oxygen , patient denies having any significant cough no chest pain shortness of breath, patient denies nausea vomiting or diarrhea and no abdominal pain Patient white count is 5.1 creatinine is 1.57 Objective - Vital Signs Vital signs: Vital Signs Temp 97.5 F L 09/14/23 15:56 Pulse 86 09/14/23 15:56 Resp 20 09/14/23 15:56 BP 135/62 09/14/23 15:56 Pulse Ox 86 L 09/14/23 15:56 FiO2 3 09/02/23 04:00 Intake & Output 09/13/23 09/14/23 09/14/23 18:59 06:59 18:59 Intake Total 20 10 20 Output Total 600 1325 850 Balance -580 -1315 -830 Weight 56 kg Intake: IV 20 10 20 Invasive Line 9 20 10 20 Output: Urine 600 1325 850 Other: Voiding Method Indwelling Catheter Indwelling Catheter Indwelling Catheter # Bowel Movements 1 1 ABP, PAP, CO, CI - Last Documented Arterial Blood Pressure 125/73 - Exam GENERAL DESCRIPTION: Middle-aged female lying in bed in no distress RESPIRATORY SYSTEM: Unlabored breathing , decreased breath sounds at bases HEART: S1 S2 regular rate and rhythm , ABDOMEN: Soft , no tenderness EXTREMITIES: Right heel wound is currently dressed no drainage - Labs CBC & Chem 7: 09/14/23 07:41 09/14/23 07:41 Labs: Abnormal Lab Results - Last 24 Hours (Table) 09/13/23 09/14/23 09/14/23 Range/Units 20:51 07:41 07:41 RBC 3.14 L (3.80-5.40) m/uL Hgb 8.8 L (11.4-16.0) gm/dL Hct 29.6 L (34.0-46.0) % MCHC 29.9 L (31.0-37.0) g/dL RDW 17.1 H (11.5-15.5) % Lymphocytes # 0.7 L (1.0-4.8) k/uL BUN 32 H (7-17) mg/dL Creatinine 1.57 H (0.52-1.04) mg/dL POC Glucose (mg/dL) 114 H (70-110) mg/dL Calcium 8.0 L (8.4-10.2) mg/dL Assessment and Plan (1) Pressure ulcer of right heel, stage 3 Current Visit: No Status: Acute Code(s): L89.613 - PRESSURE ULCER OF RIGHT HEEL, STAGE 3 SNOMED Code(s): 74004312404389 (2) Type 2 diabetes mellitus with foot ulcer Current Visit: No Status: Acute Code(s): E11.621 - TYPE 2 DIABETES MELLITUS WITH FOOT ULCER; L97.509 - NON-PRESSURE CHRONIC ULCER OTH PRT UNSP FOOT W UNSP SEVERITY SNOMED Code(s): 300049243 (3) UTI (urinary tract infection) Current Visit: Yes Status: Acute Code(s): N39.0 - URINARY TRACT INFECTION, SITE NOT SPECIFIED SNOMED Code(s): 23525452 (4) Aspiration pneumonia Current Visit: Yes Status: Acute Code(s): J69.0 - PNEUMONITIS DUE TO INHALATION OF FOOD AND VOMIT SNOMED Code(s): 872573921 Plan: 1patient with chronic nonhealing wound to the right heel area which has been there for a couple of months now patient overall wound base looks clean with no slough tissue in the wound base, patient to continue local wound care with Aquacel silver dressing change every 48 hours 2-patient did have cellulitis to the previous dialysis catheter site and some purulent drainage reported by nursing staff patient to continue with daptomycin and monitor closely Dictation was produced using [employer] dictation software. please excuse any grammatical, word or spelling errors. Time with Patient: Less than 30
--- NOTE | 2023-09-15 15:25 | P.PN ---
Subjective Progress Note Date: 09/15/23 Principal diagnosis: Reason for follow-up is right heel diabetic foot ulcer Patient is a 57-year-old female with a past medical history significant for diabetes mellitus hypertension hyperlipidemia history of renal insufficiency requiring dialysis currently not on dialysis and the patient also have a chronic nonhealing wound to the right heel area, present to the hospital with increasing shortness of breath and swelling concerning for fluid overload.Patient did have a cardiac arrest around 4 AM 08/23/2023 with the patient went into asystole got resuscitated intubated and transferred to the ICU subsequently have another cardiac arrest with PEA rhythm not resuscitated. On today's evaluation that is 09/15/2023,the patient denies any fever or any chills, patient is breathing comfortably on 2 L nasal cannula oxygen, the patient seem to be pleasantly confused not agitated as yesterday denies any chest pain no cough no vomiting or diarrhea reported by the nursing staff. No lab draw today Objective - Vital Signs Vital signs: Vital Signs Temp 97.5 F L 09/15/23 12:00 Pulse 78 09/15/23 12:00 Resp 14 09/15/23 12:00 BP 140/66 09/15/23 12:00 Pulse Ox 94 L 09/15/23 12:00 FiO2 3 09/02/23 04:00 Intake & Output 09/14/23 09/15/23 09/15/23 18:59 06:59 18:59 Intake Total 138 20 128 Output Total 1250 350 300 Balance -1112 -330 -172 Weight 53 kg Intake: IV 20 20 10 Invasive Line 9 20 20 10 Oral 118 118 Output: Urine 1250 350 300 Other: Voiding Method Indwelling Catheter Indwelling Catheter Indwelling Catheter ABP, PAP, CO, CI - Last Documented Arterial Blood Pressure 125/73 - Exam GENERAL DESCRIPTION: Middle-aged female lying in bed in no distress RESPIRATORY SYSTEM: Unlabored breathing , decreased breath sounds at bases HEART: S1 S2 regular rate and rhythm , ABDOMEN: Soft , no tenderness EXTREMITIES: Right heel wound is currently dressed no drainage - Labs CBC & Chem 7: 09/14/23 07:41 09/14/23 07:41 Labs: Abnormal Lab Results - Last 24 Hours (Table) 09/15/23 Range/Units 06:21 POC Glucose (mg/dL) 61 L (70-110) mg/dL Assessment and Plan (1) Pressure ulcer of right heel, stage 3 Current Visit: No Status: Acute Code(s): L89.613 - PRESSURE ULCER OF RIGHT HEEL, STAGE 3 SNOMED Code(s): 68015382359896 (2) Type 2 diabetes mellitus with foot ulcer Current Visit: No Status: Acute Code(s): E11.621 - TYPE 2 DIABETES MELLITUS WITH FOOT ULCER; L97.509 - NON-PRESSURE CHRONIC ULCER OTH PRT UNSP FOOT W UNSP SEVERITY SNOMED Code(s): 730035145 (3) UTI (urinary tract infection) Current Visit: Yes Status: Acute Code(s): N39.0 - URINARY TRACT INFECTION, S ITE NOT SPECIFIED SNOMED Code(s): 85446606 (4) Aspiration pneumonia Current Visit: Yes Status: Acute Code(s): J69.0 - PNEUMONITIS DUE TO INHALATION OF FOOD AND VOMIT SNOMED Code(s): 043175025 Plan: 1patient with chronic nonhealing wound to the right heel area which has been there for a couple of months now patient overall wound base looks clean with no slough tissue in the wound base, patient to continue local wound care with Aquacel silver dressing change every 48 hours 2-patient did have cellulitis to the previous dialysis catheter site and some purulent drainage reported by nursing staff erythema to the right upper chest wall slightly decreased continue daptomycin and monitor clinical course closely parents at the bedside questions were answered Dictation was produced using [employer] dictation software. please excuse any grammatical, word or spelling errors. Time with Patient: Less than 30
[2023-09-15 16:28] LABS: Glucose,Whole Blood 68 mg/dL (70-110)
[2023-09-15 16:58] LABS: Glucose,Whole Blood 104 mg/dL (70-110)
[2023-09-15 20:57] LABS: Glucose,Whole Blood 84 mg/dL (70-110)
[2023-09-16 06:07] LABS: Glucose,Whole Blood 75 mg/dL (70-110)
[2023-09-16] MEDS: OXYMETAZOLINE 0.05% NASL SPRAY 1 SPRAY BOTTLE NASAL STA (07:49)
[2023-09-16 09:40] LABS: Anisocytosis Slight; HCT 32.4 % (34.0-46.0); HGB 9.4 gm/dL (11.4-16.0); Hypochromasia Marked; MCHC 29.1 g/dL (31.0-37.0); MCV 96.3 fL (80.0-100.0); Macrocytosis Slight; Mean Platelet Volume 8.6; Platelet Count 265 k/uL (150-450); Poikilocytosis Slight; RBC 3.36 m/uL (3.80-5.40); RDW 16.7 % (11.5-15.5); WBC 4.8 k/uL (3.8-10.6)
[2023-09-16 10:30] LABS: African American GFR (CKD) 46 (>60 ml/min/1.73 sqM); Anion Gap 10 mmol/L; Blood Urea Nitrogen 30 mg/dL (7-17); Calcium 8.1 mg/dL (8.4-10.2); Carbon Dioxide 26 mmol/L (22-30); Chloride 105 mmol/L (98-107); Glucose 70 mg/dL (74-99); Magnesium 2.1 mg/dL (1.6-2.3); Non-African American GFR(CKD) 39 (>60 ml/min/1.73 sqM); Potassium 3.7 mmol/L (3.5-5.1); Sodium 141 mmol/L (137-145)
--- NOTE | 2023-09-16 10:53 | P.PN ---
Subjective Patient is seen in follow-up for acute kidney injury. Renal function stable. On IV Lasix. Nonoliguric. Vital signs are stable. General: Resting in bed. HEENT: On nasal cannula. LUNGS: No audible rhonchi or wheezes. HEART: Rate and Rhythm are regular. ABDOMEN: No distention. EXTREMITITES: Trace edema. Objective - Vital Signs Vital signs: Vital Signs Temp 97.9 F 09/16/23 08:00 Pulse 82 09/16/23 08:00 Resp 18 09/16/23 08:00 BP 151/62 09/16/23 08:00 Pulse Ox 91 L 09/16/23 10:41 FiO2 3 09/02/23 04:00 Intake & Output 09/15/23 09/16/23 09/16/23 18:59 06:59 18:59 Intake Total 138 20 10 Output Total 750 Balance -612 20 10 Intake: IV 20 20 10 Invasive Line 9 20 20 10 Oral 118 Output: Urine 750 Other: Voiding Method Indwelling Catheter Indwelling Catheter Indwelling Catheter # Bowel Movements 1 1 ABP, PAP, CO, CI - Last Documented Arterial Blood Pressure 125/73 - Labs CBC & Chem 7: 09/16/23 09:22 09/16/23 09:22 Labs: Abnormal Lab Results - Last 24 Hours (Table) 09/15/23 09/16/23 09/16/23 Range/Units 16:26 09:22 09:22 RBC 3.36 L (3.80-5.40) m/uL Hgb 9.4 L (11.4-16.0) gm/dL Hct 32.4 L (34.0-46.0) % MCHC 29.1 L (31.0-37.0) g/dL RDW 16.7 H (11.5-15.5) % BUN 30 H (7-17) mg/dL Creatinine 1.45 H (0.52-1.04) mg/dL Glucose 70 L (74-99) mg/dL POC Glucose (mg/dL) 68 L (70-110) mg/dL Calcium 8.1 L (8.4-10.2) mg/dL Assessment and Plan Plan: Assessment: 1. Acute kidney injury on chronic kidney disease secondary to ATN secondary to cardiorenal syndrome and cardiac arrest. Creatinine 1.5 admission and peaked at 2.98 this admission -stable at 1.45 today. Patient was on hemodialysis in the past with last treatment being July 02, 2023. 2. Volume overload. Improved with diuresis. 3. Acute on chronic diastolic CHF. 4. Diabetes mellitus. 5. Right foot wound. 6. Coronary disease with cardiac stenting. 7. Status post PEA arrest with concern for anoxic encephalopathy. 8. Septic shock with urine culture positive for E. coli and catheter tip culture positive for Corynebacterium. On antibiotics. Off vasopressors. 9. Metabolic acidosis secondary to acute kidney injury and IV fluids. Improved. 10. Anemia. Iron deficiency noted. Status post IV iron. On Aranesp. Also received blood transfusion this admission. 11. Hypernatremia from lack of oral water intake and free water diuresis. Status post D5W. Improved. Plan: Maintain IV Lasix. Encouraged oral intake, including free water. Avoid nephrotoxins. Continue to monitor renal function and urine output.
[2023-09-16 11:16] LABS: Glucose,Whole Blood 73 mg/dL (70-110)
[2023-09-16] MEDS ORDERED: PROPOFOL 10 MG/ML 20 ML VIAL IV ONE (12:56)
--- NOTE | 2023-09-16 12:58 | P.PN ---
Subjective Progress Note Date: 09/16/23 History of Present Illness: The patient is a 57-year-old female with known history of hypertension, hyperl ipidemia, diabetes mellitus as well as a history of coronary disease status post stenting of the RCA and chronic kidney disease who presented with dyspnea and had a cardiopulmonary arrest requiring CPR and mechanical ventilation. She is extubated, complaining of chest wall tenderness post CPR. She continues to be in sinus mechanism and hemodynamically stable. She had some bradycardia earlier and was started on IV dopamine. She is in sinus mechanism with no further bradycardia. Her urinary output has been stable. Her initial echo on presentation showed a preserved systolic function subsequently was found to have cardiomyopathy but that was done shortly after the event. She has a subacute fracture of the medial and lateral malleolus on the right side. August 26: The patient is sedated, she was quite agitated during the night. She had few episodes of sinus bradycardia, brief. She had no evidence of high-grade AV block. Her urinary output is stable. Her blood pressure is under good control without any vasopressors. Her repeat echocardiogram showed a preserved systolic function. She has been evaluated by neurology for possible anoxic encephalopathy. August 1: The patient is awake, confused. In sinus mechanism with no further episodes of high-grade AV block. Her blood pressure is stable. Her urinary output stable. There is no evidence of atrial fibrillation or ventricular ectopic activity. Repeat echocardiogram showed a normal left ventricle systolic function. August 28: The patient is sedated. She was agitated and confused during the night. She had no further episodes of bradycardia arrhythmia. Her blood pressure has been stable. She continues to be intubated. She is undergoing an EEG to evaluate her neurological status. There is no evidence of atrial fibrillation or ventricular tachyarrhythmia. August 29: The patient is more awake continues to have some episodes of confusion. She continues to be in sinus mechanism with no arrhythmia. Her EEG showed some i mprovement. Her urinary output has been good. Her blood pressure is stable and there is no evidence of significant hypotension. September 14, 2023 Seen and examined at bedside this a.m. Patient is confused and is in delirium state. She is needing a sitter to be present to calm her down. Mild volume overload 09/15 Patient has been transferred out of the intensive care unit. She is scheduled for EGD today due to GI bleed and stool for occult blood. Plavix is currently on hold but she has been continued on aspirin 81 mg daily. Patient remains quite confused with sitter at the bedside. Blood pressure 144/76, heart rate 82, pulse ox 90% on room air. Repeat blood work reveals stable hemoglobin of 9.4, BUN 30 creatinine 1.54. She is s/p transfusion of 2 units of packed RBCs. Patient has been picking at her nose and face and there is dried blood around her nose and mouth and both hands. Physical Examination: 57-year-old female, awake with some confusion, improved,Blood pressure 147/60, Heart rate 80 Head: Normocephalic. Eyes: Sclerae nonicteric. Neck: Good carotid upstroke, no bruit, mild elevated jugular venous distention. Lungs: Clear anteriorly Heart: Regular rate and rhythm, S1-S2, no S3, no rub. No murmur. Abdomen: Soft , positive bowel sounds no organomegaly. Extremities: 1+ pitting edema bilateral lower extremity, cast on the right lower extremity Impression: 1. Status post cardiopulmonary arrest, etiology unclear. No clear evidence of acute ischemic event. 2. Status post stenting of the RCA during prior admission 3. Chronic kidney disease 4. Chest wall discomfort, stable 5. History of hyperlipidemia 6. History of hypertension 7. Bradycardia resolved 8. History of diabetes 9. Cardiomyopathy resolved 10. Anoxic encephalopathy, postarrest, improving 11. Delirium 12. Right heel wound Black tarry stools, concern of GI bleeding Plan: Continue patient on aspirin 81 mg We are holding Plavix because of GI bleeding. Patient is at moderate cardiovascular risk for anesthesia and EGD. Should proceed with caution, but in clinical context EGD is needed to rule out any GI bleeding and if no GI bleeding is present, patient should be placed back on DAPT therapy because of recent PCI in May 2023. Nurse practitioner note has been reviewed, I agree with documented findings and plan of care. Patient was seen and examined. Objective - Vital Signs Vital signs: Vital Signs Temp 97.7 F 09/16/23 04:15 Pulse 77 09/16/23 07:54 Resp 20 09/16/23 07:54 BP 150/71 09/16/23 04:15 Pulse Ox 90 L 09/16/23 04:15 FiO2 3 09/02/23 04:00 Intake & Output 09/15/23 09/16/23 09/16/23 18:59 06:59 18:59 Intake Total 138 20 10 Output Total 750 Balance -612 20 10 Intake: IV 20 20 10 Invasive Line 9 20 20 10 Oral 118 Output: Urine 750 Other: Voiding Method Indwelling Catheter Indwelling Catheter Indwelling Catheter # Bowel Movements 1 1 ABP, PAP, CO, CI - Last Documented Arterial Blood Pressure 125/73 - Labs CBC & Chem 7: 09/16/23 09:22 09/16/23 09:22 Labs: Abnormal Lab Results - Last 24 Hours (Table) 09/15/23 Range/Units 16:26 POC Glucose (mg/dL) 68 L (70-110) mg/dL
[2023-09-16] MEDS: IV FLUID CONTINUATION 500 ML IV ONE (13:17)
--- NOTE | 2023-09-16 13:20 | P.OP ---
Date of Procedure: 09/16/23 Preoperative Diagnosis: GI bleed Postoperative Diagnosis: Antral gastritis Procedure(s) Performed: EGD Anesthesia: MAC Surgeon: Yonas Marlow Pathology: other (Antral) Condition: stable Description of Procedure: The patient's placed on the endoscopy table lateral position. She received IV sedation. The gastro-/oropharynx passed in the esophagus. SScope was then placed into the stomach and passed through the pylorus.s. The first and second portion of the duodenum appeared normal. The scope was broughtr back the antrum this. Mildly inflamed. Biopsies performed. The scope was retroflexed and remainder the stomach appeared normal. The GE junction was at the distal esophagus appeared normal. Proximal esophagus appeared normal. Scope withdrawn for patient. There is no evidence of upper GI bleed.
--- NOTE | 2023-09-16 14:55 | P.PN ---
Subjective Progress Note Date: 09/16/23 On today's evaluation of 09/16/2023, mental status is still unchanged and the patient continues to have restlessness in bed requiring a sitter at the bedside at all times. No focal neurological deficits. The patient is currently on risperidone 2 mg p.o. twice a day and the patient is also on Requip 1 mg at bedtime. No significant respiratory distress. The patient is currently on room air oxygen with a pulse ox of 90%. There is also suspicion for a GI bleed. The patient's hemoglobin is currently at 9.4 with a white cell count of 4.8. BUN is at 30 with a creatinine of 1.45 and a sodium level of 141. The patient is to undergo an EGD today regarding workup for GI bleeding. Objective - Vital Signs Vital signs: Vital Signs Temp 97.9 F 09/16/23 08:00 Pulse 82 09/16/23 08:00 Resp 18 09/16/23 08:00 BP 151/62 09/16/23 08:00 Pulse Ox 91 L 09/16/23 10:41 FiO2 3 09/02/23 04:00 Intake & Output 09/15/23 09/16/23 09/16/23 18:59 06:59 18:59 Intake Total 138 20 10 Output Total 750 Balance -612 20 10 Intake: IV 20 20 10 Invasive Line 9 20 20 10 Oral 118 Output: Urine 750 Other: Voiding Method Indwelling Catheter Indwelling Catheter Indwelling Catheter # Bowel Movements 1 1 ABP, PAP, CO, CI - Last Documented Arterial Blood Pressure 125/73 - Exam No acute distress, calm and comfortable on 3 L, remains encephalopathic, restless in bed, able to communicate. Head exam was generally normal. There was no scleral icterus or corneal arcus. Mucous membranes were moist. HEENT examination is grossly unremarkable. Neck supple. Full range of motion. No adenopathy thyromegaly or neck vein distention. Cardiovascular examination reveals regular rhythm rate. S1-S2 normal. No S3 or S4. No discernible murmur noted. Heart sounds are distant. Lungs reveal scattered bilateral rhonchi. No wheezes or crackles. Breath sounds equal bilaterally. Abdomen soft without bowel sounds. Extremities are intact. No cyanosis clubbing or edema. The patient has a soft splint in her right lower extremity. Pulses are diminished at the present in all 4 extremities. Skin is without rash or lesion. Stage III nonhealing heel ulcer in the right lower extremity. Neurologic examination No focal neurological deficits. Pupils are equal reactive to light. There is baseline encephalopathy and occasional agitation. - Labs CBC & Chem 7: 09/16/23 09:22 09/16/23 09:22 Labs: Abnormal Lab Results - Last 24 Hours (Table) 09/15/23 09/16/23 09/16/23 Range/Units 16:26 09:22 09:22 RBC 3.36 L (3.80-5.40) m/uL Hgb 9.4 L (11.4-16.0) gm/dL Hct 32.4 L (34.0-46.0) % MCHC 29.1 L (31.0-37.0) g/dL RDW 16.7 H (11.5-15.5) % BUN 30 H (7-17) mg/dL Creatinine 1.45 H (0.52-1.04) mg/dL Glucose 70 L (74-99) mg/dL POC Glucose (mg/dL) 68 L (70-110) mg/dL Calcium 8.1 L (8.4-10.2) mg/dL Assessment and Plan Plan: Cardiopulmonary arrest, x 2, with cardiopulmonary resuscitation, and return of spontaneous circulation on 08/23/23. Acute hypoxic respiratory failure, postcardiac arrest. The patient remains on 2 L of oxygen by nasal cannula. S/P intubation, and mechanical ventilation, secondary to cardiopulmonary arrest, August 23, 2023. She was extubated on 08/25/23. Encephalopathy, multifactorial, suspect post anoxic encephalopathy and cardiac arrest. Currently on risperidone and Requip for ongoing restlessness and encephalopathy. History of congestive heart failure (HFPEF) Coronary artery disease/cardiomyopathy and the patient is post non-ST segment elevation myocardial infarction. Stage III chronic kidney disease. Right heel pressure ulcer, stage III. Subacute fracture of the medial and lateral malleolus. History of hypertension. History of hyperlipidemia. History of type 2 diabetes mellitus. History of severe pulmonary hypertension. History of COPD. History of peripheral neuropathy. Chest wall pain related to CPR. Plan: Continue same medication Keep the patient n.p.o. EGD today Monitor hemoglobin Respiratory status stable Will continue to follow
[2023-09-16 15:19] VITALS: BMI 20.7
--- NOTE | 2023-09-16 15:51 | P.PN ---
Subjective Progress Note Date: 09/16/23 57-year-old female came in with complaints of shortness of breath and orthopnea found to be in congestive heart failure exacerbation patient has congestive heart failure with reduced ejection fraction in the past patient has increasing pedal edema. Patient also has an ulcer in the right foot stage III-IV which appeared to be infected we will consult wound care and infectious disease. Patient was on hemodialysis during last hospitalization her creatinine presently is 1.5 which is significantly improved patient potassium is 5.5, patient is on Entresto and Aldactone Aldactone will be held Entresto will be continued since she is receiving IV Lasix and expecting her potassium to improve if it does not improve or get worse then Entresto need to be discontinued as well. Patient has hypervolemic hyponatremia and hyperglycemia. 08/21/2023 Was evaluated today on the medical floor. Patient was continued on IV Lasix overnight however she was no longer reporting any shortness of breath and her lower extremity edema has improved. She was taken off of the Lasix at this time due to increased creatinine up to 2.31 additionally potassium remains elevated at 5.7. Echocardiogram comes back showing an improved ejection fraction of 60 to 65% because of this and also the hyperkalemia patient will not be continued on entresto. Patient was evaluated by infectious disease who felt like that heel ulcer on the right side was more likely a pressure injury stage III and is recommending local wound care to continue with Aquacel. Patient is reporting significant pain to the right foot and feels like it is fractured. Upon review of the patient's chart she did have a x-ray completed of this 12 days ago ordered by her pet care attendant Dr. Mayen. Ankle x-ray did review a mildly displaced acute distal fibular fracture. Repeat x-ray of the foot and ankle completed today does reveal a subacute fractures of the medial and lateral malleolus. The lateral malleolus fracture was seen on the patient's prior exam the medial malleolus fracture may be new in the interval and this would be considered an unstable ankle fracture. There is interval 6 mm displacement of the lateral malleolus. There is a deep soft tissue ulcer at the plantar heel with no clear radiographic findings of a contagious osteomyelitis at this time. Orthooedics was consulted for this. 08/22/2023 Patient evaluated in follow-up today resting in bed. She was taken off of the Lasix remains off at this time. Bladder scan was requested and not done yesterday to rule out urinary retention, creatinine today is increased up to 2.56. Bladder scan was done require urinary straight catheterization of 550 mL taken out. Urinalysis was sent which is significantly abnormal. Patient is also noted to have multiple genital lesions which appear wartlike she admits to not having any routine gynecological screenings for many years. She is not having any vaginal bleeding or discharge. Renal ultrasound has been ordered to rule out any obstructive uropathy. 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 Patient upon arrival to the intensive care unit had another episode of cardiac arrest patient had bradycardia while on pressors in the ICU patient was intubated following the first cardiac arrest and is currently on the mechanical ventilator 50% FiO2. Chest x-ray showing similar interstitial and patchy component airspace disease right greater than left. There is a possible trace left pleural effusion. A brain CT which shows no acute intracranial process. Blood work today shows a white blood cell count of 13.8, hemoglobin 9.5, sodium level of 135, BUN of 62, creatinine of 2.76. AST ALT and alk phosphatase are significantly elevated consistent with a shock liver. TSH 3.310. Urinalysis is abnormal. Her urine culture is showing gram-negative bacilli patient is covered for the urinary tract infection as well as aspiration with IV Zosyn being managed by infectious disease. Patient is currently sedated with propofol and did require vasopressor support with Levophed which has been weaned at this time. Will discontinue the gabapentin patient is continued on aspirin Plavix and statin has been placed on hold. There is concern for possible arrhythmia precipitating the asystole additionally we need to rule out embolism and a D-dimer has been ordered. 08/24/2023 Patient is seen in follow-up today continues in the ICU on mechanical ventilation. FiO2 is 50% although titrating and was just placed at 40% with a PEEP of 5. Chest x-ray today shows that the ET tube is 7 mm from the sonam suggesting a pulled back 2 cm and reassess and also suspected underlying vascular congestion. Neuro is following and per nursing staff patient is following some simple commands and undergoing sedation holidays. Patient noted to have reduced EF of 30 to 35% and cardiology had been following. Will reconsult and appreciate input and recommendations. patient did have dialysis catheter removed and sent for cultures which are pending. Infectious disease following and patient is maintained on antibiotic. D-dimer is elevated above 16 and will attempt to obtain a VQ scan.57-year-old female came in with complaints of shortness of breath and orthopnea found to be in congestive heart failure exacerbation patient has congestive heart failure with reduced ejection fraction in the past patient has increasing pedal edema. Patient also has an ulcer in the right foot stage III-IV which appeared to be infected we will consult wound care and infectious disease. Patient was on hemodialysis during last hospitalization her creatinine presently is 1.5 which is significantly improved patient potassium is 5.5, patient is on Entresto and Aldactone Aldactone will be held Entresto will be continued since she is receiving IV Lasix and expecting her potassium to improve if it does not improve or get worse then Entresto need to be discontinued as well. Patient has hypervolemic hyponatremia and hyperglycemia. 08/21/2023 Was evaluated today on the medical floor. Patient was continued on IV Lasix overnight however she was no longer reporting any shortness of breath and her lower extremity edema has improved. She was taken off of the Lasix at this time due to increased creatinine up to 2.31 additionally potassium remains elevated at 5.7. Echocardiogram comes back showing an improved ejection fraction of 60 to 65% because of this and also the hyperkalemia patient will not be continued on entresto. Patient was evaluated by infectious disease who felt like that heel ulcer on the right side was more likely a pressure injury stage III and is recommending local wound care to continue with Aquacel. Patient is reporting significant pain to the right foot and feels like it is fractured. Upon review of the patient's chart she did have a x-ray completed of this 12 days ago ordered by her pet care attendant Dr. Mayen. Ankle x-ray did review a mildly displaced acute distal fibular fracture. Repeat x-ray of the foot and ankle completed today does reveal a subacute fractures of the medial and lateral malleolus. The lateral malleolus fracture was seen on the patient's prior exam the medial malleolus fracture may be new in the interval and this would be considered an unstable ankle fracture. There is interval 6 mm displacement of the lateral malleolus. There is a deep soft tissue ulcer at the plantar heel with no clear radiographic findings of a contagious osteomyelitis at this time. Orthooedics was consulted for this. 08/22/2023 Patient evaluated in follow-up today resting in bed. She was taken off of the Lasix remains off at this time. Bladder scan was requested and not done yesterday to rule out urinary retention, creatinine today is increased up to 2.56. Bladder scan was done require urinary straight catheterization of 550 mL taken out. Urinalysis was sent which is significantly abnormal. Patient is also noted to have multiple genital lesions which appear wartlike she admits to not having any routine gynecological screenings for many years. She is not having any vaginal bleeding or discharge. Renal ultrasound has been ordered to rule out any obstructive uropathy. 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 Patient upon arrival to the intensive care unit had another episode of cardiac arrest patient had bradycardia while on pressors in the ICU patient was intubated following the first cardiac arrest and is currently on the mechanical ventilator 50% FiO2. Chest x-ray showing similar interstitial and patchy component airspace disease right greater than left. There is a possible trace left pleural effusion. A brain CT which shows no acute intracranial process. Blood work today shows a white blood cell count of 13.8, hemoglobin 9.5, sodium level of 135, BUN of 62, creatinine of 2.76. AST ALT and alk phosphatase are significantly elevated consistent with a shock liver. TSH 3.310. Urinalysis is abnormal. Her urine culture is showing gram-negative bacilli patient is covered for the urinary tract infection as well as aspiration with IV Zosyn being managed by infectious disease. Patient is currently sedated with propofol and did require vasopressor support with Levophed which has been weaned at this time. Will discontinue the gabapentin patient is continued on aspirin Plavix and statin has been placed on hold. There is concern for possible arrhythmia precipitating the asystole additionally we need to rule out embolism and a D-dimer has been ordered. 08/24/2023 Patient is seen in follow-up today continues in the ICU on mechanical ventil ation. FiO2 is 50% although titrating and was just placed at 40% with a PEEP of 5. Chest x-ray today shows that the ET tube is 7 mm from the sonam suggesting a pulled back 2 cm and reassess and also suspected underlying vascular congestion. Neuro is following and per nursing staff patient is following some simple commands and undergoing sedation holidays. Patient noted to have reduced EF of 30 to 35% and cardiology had been following. Will reconsult and appreciate input and recommendations. patient did have dialysis catheter removed and sent for cultures which are pending. Infectious disease following and patient is maintained on antibiotic. D-dimer is elevated above 16 and will atte mpt to obtain a VQ scan. 08/25/23 : Patient seen and evaluated at bedside, patient extubated around noon, transition to 5 L of oxygen to nasal cannula. Family at bedside, blood work reviewed hemoglobin 10.3, serum chemistry reviewed sodium 140 potassium 4.8 BUN 57 creatinine 2.49 calcium of 7. 08/26/23 : Patient seen and evaluated at bedside, patient remains in medical ICU, does complain of chest pain from CPR. Patient has been weaned off dopamine, cardiology following, blood work reviewed, hemoglobin 8.5 platelet count of 217, serum chemistry shows sodium 141 BUN 51 creatinine 2.28. Followed up by nephrology as well MARYLOU secondary to ATN continue to monitor intake and output 08/27/23: Patient seen and evaluated bedside, on evaluation patient is disoriented, patient is drowsy however likely having acute delirium. Seen by cardiology echocardiogram shows preserved ejection fraction continue with current medical management, patient on Precedex for acute delirium, continue to remain on oxygen supplementation with nasal cannula blood work reviewed CBC showed WBC 8.2 hemoglobin 8.6 serum chemistry showed creatinine of 2.22. Patient remains delirious, daughter at bedside all questions answered 08/28/2023 Patient was agitated earlier requiring Seroquel and Placed on Precedex because she was has risk to self and others Currently when I saw the patient she was sleepy However she is not tachypneic show does not look in pain. Vitals are stable She is saturating 91% on 2 L oxygen via nasal cannula She remains on Zosyn for pneumonia and UTI She is on normal saline at 50 mL/h 08/29/2023 Patient remains sleepy, she still has some encephalopathy But she is on Precedex which will be tapered off by pulmonary team today to assess her mentation as well. Patient has been followed by neurology for suspected anoxic brain injury after her cardiac arrest and return of circulation on 08/22. There is no evidence of seizure-like activity She has catheter tip infection with culture growing Corynebacterium species and she is currently covered with Zosyn which also help for her right heel pressure ulcer and aspiration pneumonia and UTI. Cardiology evaluated the patient and there is no clear evidence for her cardiac arrest although she has history of coronary artery disease and previous stents. Currently with no chest pain. She remains on aspirin and Plavix, gentle hydration, IV steroids 08/30/2023 Today her sedation remains off however patient mentation not completely resolved, it is somewhat better as she was more sleepy yesterday She is eating okay, swallowing is fine She was started on IV Lasix twice daily per business services assistant. She has good urine output and normal send discontinued She is hemodynamically stable and oxygenation is acceptable Remains on aspirin and Plavix and Seroquel 08/31/23: Seen and evaluated at bedside, patient remains on 4 L of oxygen, blood work reviewed, WBC 7.3 hemoglobin 9.1 platelet count of 203 glucose 119. CBC reviewed showed WBC 7.3 hemoglobin 9.1 platelet count of 203.. Neurology consulted and following. Patient is awake and alert able to answer questions and follow commands sister at bedside all questions answered 09/01/23: Seen and evaluated at bedside, patient vitals reviewed, serum chemistry reviewed sodium 145 potassium 4.6 creatinine 2.71, CBC reviewed patient remains on IV Zosyn , appreciate input from nephrology continue patient on IV Lasix, delirium persist 09/02/23: Patient seen and evaluated bedside, patient been admitted for cardiopulmonary arrest, respiratory failure s/p extubation on nasal cannula however continues to remain delirious. Blood work reviewed hemoglobin 8.8, platelet count 226, serum chemistry reviewed creatinine 2.55 potassium 4.5. MRI brain has been ordered which is pending, patient remains disoriented 09/03/2023 Patient is seen in follow-up status post recent extubation maintained on a few liters of pulmonary fixed wing aircraft crew chief following closely. Cardiology following as well and adjusted medications recommending continuing with current medication regimen. No change in mentation as patient continues with periods of confusion and restlessness. Medications being adjusted and Ativan as needed has been added. Continue Seroquel. Patient will answer questions appropriately and discuss her health history and can recall her doctors names but will ramble on regarding something irrelevant during conversation. Patient is redirectable. Patient continues with partial cast noted on the lower extremity. Patient continues on IV Lasix and kidney functions are improving nephrology following closely. Plan is for patient to possibly move out of the ICU. Will have PT/OT therapy evaluate the patient and discuss further with consultations along with case management regarding possible ECF versus discharge planning. 09/04/2023 Patient seen in follow-up today and continues to have periods of confusion and restlessness. Patient continues in the ICU with multiple medical consultations following. Hemoglobin was found to be less than 7 today and will transfuse 1 unit of PRBC. Sodium 147 and recommend repeat labs as well. Nephrology is following and patient is continued on IV Lasix. MRI of the brain remains pending and neurology is following. 09/05/2023 Patient is seen and evaluated today continues to be in the ICU needs continuous reinforcement on keeping oxygen on. Patient does have a senior safety support manager at the bedside. Patient is currently resting although remains confused and anxious and agitated at times. Hemoglobin is stable above 7 status post 1 unit of PRBC. Patient continues on IV Lasix daily and nephrology following closely. Patient to continue on IV antibiotics with infectious disease following. 09/06/2023 Patient seen in follow-up today continues to be sleepy at this time although when awake patient is extremely restless and agitated requiring sitter at the bedside. Adjustments to medications being made and Risperdal is being increased and will continue with Seroquel. Ativan as needed. Patient's hemoglobin is stable with no active bleeding noted. Neurology following as patient continues to be unable to obtain an MRI and will have a repeat EEG as well as CT brain per neurology. Patient is afebrile and is continued on antibiotics with infectious disease following. 09/09/2023 Patient seen in follow-up today has been transitioned out of the ICU and curren tly on selective unit and continues with senior safety support manager at the bedside. Patient is keeping her oxygen on currently and is on 4 L. Multiple medical consultations following and per nursing staff patient was able to get up and work with physical therapy today. Plan is for ECF when patient's mentation is improved. Patient continues on IV Lasix twice daily as well with nephrology following. Continue Ativan as needed and patient is also maintained on Risperdal twice daily. Patient is afebrile with no reports of chest pain or shortness of breath. Hemoglobin is stable at 9.8 and white count is normal and kidney functions are improving. Continue monitoring Accu-Cheks before meals and at bedtime and will continue with sliding scale. Neurology following and patient is scheduled to undergo repeat brain CT today. Chest x-ray continues to show pulmonary vascular congestion. 09/10/2023 Patient is seen in follow-up today and mentation is much improved with family sitting at the bedside. Patient is able to have conversation and reports she is going home although patient has significant weakness and will be requiring ECF on discharge. Case management following awaiting for ECF evaluation and will require insurance authorization. Patient is afebrile and has been on IV antibiotics in the form of Zosyn with infectious disease following and white count remains normal and patient will be monitored off antibiotic therapy. Patient also continues on IV Lasix twice daily along with treatments and continued supplemental oxygen. Patient is on 4 L via nasal cannula. 09/11/2023 Patient is seen in follow-up this morning continues to display periods of confusion with increased agitation and restlessness. Per nursing staff patient had reports of hallucinating and seeing things crawling in the room that were not there. Patient is extremely anxious today although continues to be more mikaela ke. Patient reports is eating without much of an appetite. Patient has been compliant with working with physical therapy and will require ECF on discharge. Patient continues with senior safety support manager as patient is impulsive and attempts to get up out of the bed impulsively. Will ask for psychiatry to reevaluate and adjust medications. Will discontinue Dilaudid as the hallucinations appeared shortly after receiving this medication. Patient does elicit pain in the right leg and foot. 09/12/2023 Patient is seen in follow-up today and continues with confusion and requiring a sitter for safety. Patient has been working with physical therapy and reports she is doing well and ready to go home although she will require ECF for continued strength and mobility. Patient is extremely impulsive and restless at times. Asking psychiatry to reevaluate and will adjust medications. Family also working on obtaining guardianship as patient is not making sound decisions for herself medically. Family report they also cannot take her home and take care of her as they are elderly. Patient is afebrile with no reported chest pain or shortness of breath. Patient continues on 4 L and continues to remove her oxygen frequently. Patient is maintained on IV Lasix and being transition to daily. Continue monitoring kidney functions and nephrology is following. Being monitored off antibiotic therapy 09/13/2023 Patient is seen in follow-up this morning continues with a sitter at the bedside. Per nursing staff patient had a large black bowel movement and was incontinent. Occult Was positive and stat repeat hemoglobin was obtained and actually improved from previous at 9.5. Patient is maintained on aspirin, Plavix, and heparin and will hold for now. No GI available and will consult general surgery for evaluation of possible GI bleed. Contents do not appear to be melanotic on exam although dark stools are noted. Multiple other consultations following as well as psychiatry who reevaluated and adjusted medications. Mentation is improved today and less anxious and agitated and per nursing staff more appropriate today. Will continue current regimen and also continue [employer] and narcotic agents. 09/14/2023 Patient is evaluated in follow-up with sister at the bedside as well as family. General surgery is planning for an upper endoscopy on Saturday with no further reports of any black or bloody stool. Aspirin Plavix and heparin remain on hold. Patient was seen in follow-up by psychiatry for now continues on Prolixin as needed, olanzapine as needed. Patient is maintained on risperidone twice a day scheduled. Patient's mentation she is currently alert x 1-0 she is hallucinating and appears delirious. Continues on IV Lasix 40 mg every 12 hours. Continues on IV daptomycin. Continues in the cast to the right lower extremity. Bun is 32, creatinine is 1.57, magnesium 1.7. White blood cell count 5.1. 09/15/2023 Patient evaluated today with senior safety support manager at the bedside. Patient has no further episodes of bloody stool and is scheduled to undergo an endoscopy on Saturday. Patient is more awake alert today and is more appropriate although she continues to have hallucinations. Patient continues on IV daptomycin with concerns for lower extremity cellulitis. No significant complaints today. 09/16/2023 Patient is seen in follow-up continues with confusion and sitter at the bedside. Patient is n.p.o. currently and scheduled to undergo EGD today with general surgery. Hemoglobin is stable and 9.4 with no active bleeding other than nosebleed. Patient is maintained on Afrin as needed. Patient continues on room air and weaning as tolerated. 91% on room air with pulmonary following. Case management/social work following as well with plans on attempting to have patient go to ECF for significant weakness. Patient continues with sitter at this time making it difficult for placement although patient continues to be somewhat confused and restless and impulsive. Patient is afebrile with no reports of chest pain or shortness of breath. Patient currently n.p.o. and diet will be resumed once cleared by surgery. Kidney functions improving and patient remains on IV Lasix with nephrology following. Review of systems: Constitutional: No reports of fatigue, fever, or chills, reports feeling anxious Cardiovascular: No reports of chest pain or palpitations Respiratory: No reports of shortness of breath or cough GI: No reports of nausea, vomiting, reports having multiple large dark stools : No reports of dysuria or retention Neurovascular: reports of generalized weakness All medications have been reviewed PHYSICAL EXAMINATION: GENERAL: The patient is on nasal cannula, awake alert and oriented x 2, much more appropriate today, elderly appearing, unkept, ill-appearing HEENT: Pupils are round and equally reacting to light. EOMI. CARDIOVASCULAR: S1 and S2 muffled PULMONARY: Decreased breath sounds bilaterally with some scattered rhonchi noted ABDOMEN: Soft, nontender, nondistended, normoactive bowel sounds. No palpable organomegaly. MUSCULOSKELETAL: No joint swelling or deformity. EXTREMITIES: Right lower extremity bandage with partial cast noted NEUROLOGICAL: pupils reactive, less anxious although continues, cooperative, tearful SKIN: Patient has right plantar surface ulcer on the posterior foot stage III-IV with areas of necrotic tissue. Casting and Tam wrap noted of the right lower extremity Assessment: Asystole/cardiopulmonary arrest x 2 with CPR/ROSC Respiratory failure requiring intubation s/p extubation 08/25/2023 Large black stools, concern for GI bleed, ruled out, EGD showed antral gastritis Acute metabolic encephalopathy with concerns of anoxia, status postcardiac arrest Congestive heart failure with systolic dysfunction acute on chronic exacerbation Acute hypoxic respiratory failure secondary to CHF Ischemic cardiomyopathy with improved EF Acute kidney injury secondary to ATN on chronic kidney disease stage III Urinary tract infection with E. coli Subacute fracture of the medial and lateral malleolus, orthopedics following Right heel stage III pressure injury continue local wound care with aquacel ID following. Genital lesions, will need customer relations assistant follow up outpatient for routine screenings Hypertension Hyperlipidemia Type 2 diabetes mellitus uncontrolled hgb a1c 12.1 Severe pulmonary hypertension COPD without any acute exacerbation Peripheral neuropathy Obesity with a body mass index of 30.8 GI prophylaxis DVT prophylaxis Full code Plan: Patient being followed by multiple medical consultation and is continued on 3 S. stepdown unit from the ICU. teenage babysitter at the bedside Wean FiO2 as tolerated and patient is maintained on room air with oxygen saturations of 91%. Patient has been weaning FiO2 as tolerated and continues to take tubing off. Patient continues on IV Lasix daily, kidney functions are improving and nephrology following closely Patient will need reevaluation with PT/OT therapy for continued weakness and prolonged hospitalization as patient will most likely require ECF. Family feels unsafe to take care of her and care for her at home. They are currently working on guardianship as patient is not deemed capable of making sound medical decisions for herself. Mentation continues to wax and wane although patient is more awake today and able to respond and answer questions more appropriately. All [employer] and narcotic agents being held and patient was reevaluated by psychiatry with adjustments to medications and will continue current regimen. Continue senior safety support manager at this time as patient is known to be very impulsive and attempts to get out of the bed very frequently Patient's hemoglobin remains above 9 with no active bleeding noted. Patient evaluated by general surgery today underwent EGD showing antral gastritis with no active bleeding noted. Patient continues with nosebleeds likely secondary to dryness from continued oxygen use and currently found on exam 91% on room air with no oxygen. Continue with Afrin as needed Infectious disease following and patient has been placed back on IV antibiotics with concerns of lower extremity cellulitis.. Continued concerns of that right lower extremity as it has been casted and there is a chronic wound. Patient remains afebrile and white count is within normal limits. Repeat CT of the brain is negative for acute process. Neurology following and patient has been unable to receive an MRI given patient's continued restlessness and anxiety Overall prognosis is guarded The impression and plan of care has been dictated by Mouna Rowley, Nurse Practitioner as directed. Dr. Ricardo MD I have performed a history and examination and MDM of this patient, discussed the same with the dictator, and agree with the dictator's assessment and plan as written ,documented as a scribe. Based on total visit time, I have performed more than 50% of the visit. Objective - Vital Signs Vital signs: Vital Signs Temp 97.9 F 09/16/23 08:00 Pulse 82 09/16/23 08:00 Resp 18 09/16/23 08:00 BP 151/62 09/16/23 08:00 Pulse Ox 91 L 09/16/23 08:00 FiO2 3 09/02/23 04:00 Intake & Output 09/15/23 09/16/23 09/16/23 18:59 06:59 18:59 Intake Total 138 20 10 Output Total 750 Balance -612 20 10 Intake: IV 20 20 10 Invasive Line 9 20 20 10 Oral 118 Output: Urine 750 Other: Voiding Method Indwelling Catheter Indwelling Catheter Indwelling Catheter # Bowel Movements 1 1 ABP, PAP, CO, CI - Last Documented Arterial Blood Pressure 125/73 - Labs CBC & Chem 7: 09/16/23 09:22 09/16/23 09:22 Labs: Abnormal Lab Results - Last 24 Hours (Table) 09/15/23 09/16/23 Range/Units 16:26 09:22 RBC 3.36 L (3.80-5.40) m/uL Hgb 9.4 L (11.4-16.0) gm/dL Hct 32.4 L (34.0-46.0) % MCHC 29.1 L (31.0-37.0) g/dL RDW 16.7 H (11.5-15.5) % POC Glucose (mg/dL) 68 L (70-110) mg/dL
[2023-09-16 16:22] LABS: Glucose,Whole Blood 72 mg/dL (70-110)
[2023-09-16 20:09] LABS: Glucose,Whole Blood 58 mg/dL (70-110)
[2023-09-16 20:21] LABS: Glucose,Whole Blood 67 mg/dL (70-110)
[2023-09-16 20:34] LABS: Glucose,Whole Blood 69 mg/dL (70-110)
[2023-09-16 20:52] LABS: Glucose,Whole Blood 91 mg/dL (70-110)
[2023-09-17 01:19] LABS: Glucose,Whole Blood 110 mg/dL (70-110)
[2023-09-17 06:07] LABS: Glucose,Whole Blood 126 mg/dL (70-110)
--- NOTE | 2023-09-17 08:10 | P.PN ---
Subjective Progress Note Date: 09/16/23 Principal diagnosis: Reason for follow-up is right heel diabetic foot ulcer Patient is a 57-year-old female with a past medical history significant for diabetes mellitus hypertension hyperlipidemia history of renal insufficiency requiring dialysis currently not on dialysis and the patient also have a chronic nonhealing wound to the right heel area, present to the hospital with increasing shortness of breath and swelling concerning for fluid overload.Patient did have a cardiac arrest around 4 AM 08/23/2023 with the patient went into asystole got resuscitated intubated and transferred to the ICU subsequently have another cardiac arrest with PEA rhythm not resuscitated. On today's evaluation that is 09/16/2023,the patient remains to be afebrile, patient is on 2 L nasal cannula supplemental oxygen and denies any shortness of breath no chest pain or cough.Patient denies having any nausea or vomiting, no abdominal pain and no worsening diarrhea has been reported by the nursing staff. Patient did have a white count of 4.8 creatinine is 1.45 Objective - Vital Signs Vital signs: Vital Signs Temp 97.9 F 09/16/23 12:00 Pulse 77 09/16/23 12:05 Resp 18 09/16/23 12:05 BP 144/76 09/16/23 12:00 Pulse Ox 90 L 09/16/23 12:00 FiO2 3 09/02/23 04:00 Intake & Output 09/15/23 09/16/23 09/16/23 18:59 06:59 18:59 Intake Total 138 20 20 Output Total 750 Balance -612 20 20 Intake: IV 20 20 20 Invasive Line 9 20 20 20 Oral 118 Output: Urine 750 Other: Voiding Method Indwelling Catheter Indwelling Catheter Indwelling Catheter # Bowel Movements 1 1 ABP, PAP, CO, CI - Last Documented Arterial Blood Pressure 125/73 - Exam GENERAL DESCRIPTION: Middle-aged female lying in bed in no distress RESPIRATORY SYSTEM: Unlabored breathing , decreased breath sounds at bases HEART: S1 S2 regular rate and rhythm , ABDOMEN: Soft , no tenderness EXTREMITIES: Right heel wound is currently dressed no drainage - Labs CBC & Chem 7: 09/16/23 09:22 09/16/23 09:22 Labs: Abnormal Lab Results - Last 24 Hours (Table) 09/15/23 09/16/23 09/16/23 Range/Units 16:26 09:22 09:22 RBC 3.36 L (3.80-5.40) m/uL Hgb 9.4 L (11.4-16.0) gm/dL Hct 32.4 L (34.0-46.0) % MCHC 29.1 L (31.0-37.0) g/dL RDW 16.7 H (11.5-15.5) % BUN 30 H (7-17) mg/dL Creatinine 1.45 H (0.52-1.04) mg/dL Glucose 70 L (74-99) mg/dL POC Glucose (mg/dL) 68 L (70-110) mg/dL Calcium 8.1 L (8.4-10.2) mg/dL Assessment and Plan (1) Pressure ulcer of right heel, stage 3 Current Visit: No Status: Acute Code(s): L89.613 - PRESSURE ULCER OF RIGHT HEEL, STAGE 3 SNOMED Code(s): 70037311444221 (2) Type 2 diabetes mellitus with foot ulcer Current Visit: No Status: Acute Code(s): E11.621 - TYPE 2 DIABETES MELLITUS WITH FOOT ULCER; L97.509 - NON-PRESSURE CHRONIC ULCER OTH PRT UNSP FOOT W UNSP SEVERITY SNOMED Code(s): 490332963 (3) UTI (urinary tract infection) Current Visit: Yes Status: Acute Code(s): N39.0 - URINARY TRACT INFECTION, SITE NOT SPECIFIED SNOMED Code(s): 08873100 (4) Aspiration pneumonia Current Visit: Yes Status: Acute Code(s): J69.0 - PNEUMONITIS DUE TO INHALATION OF FOOD AND VOMIT SNOMED Code(s): 336569824 Plan: 1patient with chronic nonhealing wound to the right heel area which has been there for a couple of months now patient overall wound base looks clean with no slough tissue in the wound base, patient to continue local wound care with Aquacel silver dressing change every 48 hours 2-patient did have cellulitis to the left chest wall site of previous dialysis catheter insertion and some purulent drainage reported by nursing staff erythema to the right upper chest wall slightly decreased continue daptomycin and monitor clinical course closely Dictation was produced using [employer] dictation software. please excuse any grammatical, word or spelling errors. Time with Patient: Less than 30
[2023-09-17 11:23] LABS: Glucose,Whole Blood 179 mg/dL (70-110)
--- NOTE | 2023-09-17 12:18 | P.PN ---
Subjective HISTORY OF PRESENT ILLNESS: This is a 57-year-old female with a past medical history significant for coronary artery disease with previous stenting, cardiomyopathy, hypertension, hyperlipidemia, diabetes, severe pulmonary hypertension, COPD, and chronic kidney disease previously on hemodialysis. Patient follows in the office with Dr. Jose. We have been asked to see the patient in consultation for congestive heart failure. Patient examined at the bedside in the emergency room. Patient presented to the hospital with a chief complaint of shortness of breath. She reports her shortness of breath started about a week ago. She also reports l ower extremity edema. Patient was previously on hemodialysis for renal failure. However she states she is no longer on hemodialysis and had her last session approximately 3 weeks ago. Patient's creatinine was 1.51 on admission which is improved from previous. Patient was found to be in acute CHF and was started on IV Lasix. Patient states she has been compliant with all of her medications. S he also reports she has been compliant with a low-sodium diet. DIAGNOSTICS: - EKG reveals sinus mechanism with nonspecific ST-T wave changes. - Chest xray correlate for fluid overload or mild CHF with pulmonary vascular congestion and trace effusions. - Laboratory data: WBC 9.2. Hemoglobin 10.5. Platelet count 230. Sodium 134. Potassium 5.5. BUN 39. Creatinine 1.51. Troponin negative x 1. proBNP 15,300. - Current home cardiac medications include Aldactone 25 mg daily, lisinopril 10 mg daily, hydralazine 25 mg 3 times a day, Demadex 40 mg daily, Zetia 10 mg daily, Farxiga 5 mg daily, Plavix 75 mg daily, Lipitor 40 mg daily, aspirin 81 mg daily, Imdur 15 mg daily. - Most recent echocardiogram obtained in April 2023 revealing ejection fraction 35 to 40%, severe pulmonary hypertension, enlarged right ventricle, moderate MR, moderate TR - Cardiac catheterization history: 06/24/2023 with stenting of the proximal RCA August 21, 2023 Patient examined this morning at the bedside. Patient denies chest pain or pressure. She currently denies shortness of breath. She is laying flat in bed and appears comfortable. Patient's blood pressures have been on the low side with a systolic in the 90s. Creatinine today increased to 2. 3 1 from 1.5 yesterday. Potassium remains elevated at 5.7. The patient was post be started on Entresto this morning. However her echocardiogram came back with improved LV function at 60 to 65% August 22, 2023 Patient examined this morning at the bedside. Patient denies chest pain or pressure. She denies shortness of breath. Creatinine today increased to 2.54. Blood pressure has increased today. The patient is a 57-year-old female with known history of hypertension, hyperlipidemia, diabetes mellitus as well as a history of coronary disease status post stenting of the RCA and chronic kidney disease who presented with dyspnea and had a cardiopulmonary arrest requiring CPR and mechanical ventilation. She is extubated, complaining of chest wall tenderness post CPR. She continues to be in sinus mechanism and hemodynamically stable. She had some bradycardia earlier and was started on IV dopamine. She is in sinus mechanism with no further bradycardia. Her urinary output has been stable. Her initial echo on presentation showed a preserved systolic function subsequently was found to have cardiomyopathy but that was done shortly after the event. She has a subacute fracture of the medial and lateral malleolus on the right side. August 26: The patient is sedated, she was quite agitated during the night. She had few episodes of sinus bradycardia, brief. She had no evidence of high-grade AV block. Her urinary output is stable. Her blood pressure is under good control without any vasopressors. Her repeat echocardiogram showed a preserved systolic function. She has been evaluated by neurology for possible anoxic encephalo rosemary. August 1: The patient is awake, confused. In sinus mechanism with no further episodes of high-grade AV block. Her blood pressure is stable. Her urinary output stable. There is no evidence of atrial fibrillation or ventricular ectopic activity. Repeat echocardiogram showed a normal left ventricle systolic function. August 2: The patient is sedated. She was agitated and confused during the night. She had no further episodes of bradycardia arrhythmia. Her blood pressure has been stable. She continues to be intubated. She is undergoing an EEG to evaluate her neurological status. There is no evidence of atrial fibrillation or ventricular tachyarrhythmia. August 29: The patient is more awake continues to have some episodes of confusion. She continues to be in sinus mechanism with no arrhythmia. Her EEG showed some improvement. Her urinary output has been good. Her blood pressure is stable and there is no evidence of significant hypotension. September 14, 2023 Seen and examined at bedside this a.m. Patient is confused and is in delirium state. She is needing a sitter to be present to calm her down. Mild volume overload 09/15 Patient has been transferred out of the intensive care unit. She is scheduled for EGD today due to GI bleed and stool for occult blood. Plavix is currently on hold but she has been continued on aspirin 81 mg daily. Patient remains quite confused with sitter at the bedside. Blood pressure 144/76, heart rate 82, pulse ox 90% on room air. Repeat blood work reveals stable hemoglobin of 9.4, BUN 30 creatinine 1.54. She is s/p transfusion of 2 units of packed RBCs. Patient has been picking at her nose and face and there is dried blood around her nose and mouth and both hands. 09/17/2023 Patient examined this morning the bedside. Patient currently denies chest pain or pressure. She denies shortness of breath. She underwent EGD yesterday afte alanis with no evidence of GI bleeding. She remains on aspirin daily. She does continue to report an intermittent bloody nose. PHYSICAL EXAM: VITAL SIGNS: Reviewed. GENERAL: Well-developed in no acute distress. HEENT: Head is normocephalic. Pupils are equal, round. Sclerae anicteric. Mucous membranes of the mouth are moist. Neck supple. No JVD or thyromegaly LUNGS: Respirations even and unlabored. Lungs diminished bilaterally HEART: Regular rate and rhythm. S1 and S2 heard. ABDOMEN: Soft. Nondistended. Nontender. EXTREMITIES: Normal range of motion. No clubbing or cyanosis. Peripheral pulses intact. Cast to right lower extremity NEUROLOGIC: Awake and alert. ASSESSMENT: Shortness of breath Acute on chronic heart failure with recovered EF, previously 35 to 40% now 60 to 65% Acute kidney injury Coronary artery disease with recent stenting of the proximal RCA, 06/24/2023 Ischemic cardiomyopathy with recovered EF Chronic kidney disease History of renal failure requiring hemodialysis, last session 3 weeks ago Hypertension Hyperlipidemia Diabetes Severe pulmonary hypertension COPD Former nicotine dependence Status postcardiopulmonary arrest, etiology unclear, no clear-cut evidence of an acute ischemic event Bradycardia, resolved Anoxic encephalopathy, postarrest, improving Acute delirium, improving Black tarry stools, concern for GI bleeding, status post EGD revealing antral gastritis Epistaxis PLAN: Continue current cardiac medications Continue aspirin If patient's nosebleeds improve, will change patient to Plavix tomorrow and discontinue aspirin Continue to monitor hemoglobin Further recommendations pending patient course Nurse practitioner note has been reviewed by physician. Signing provider agrees with the documented findings, assessment, and plan of care documented by TELES[employer]ES TEAM LEADER as a scribe. Objective - Vital Signs Vital signs: Vital Signs Temp 97.4 F L 09/17/23 07:10 Pulse 79 09/17/23 07:10 Resp 17 09/17/23 07:10 BP 161/79 09/17/23 07:10 Pulse Ox 94 L 09/17/23 07:10 FiO2 3 09/02/23 04:00 Intake & Output 09/16/23 09/17/23 09/17/23 18:59 06:59 18:59 Intake Total 470 Output Total 600 Balance -130 Weight 53 kg Intake: IV 470 Invasive Line 9 20 Output: Urine 600 Other: Voiding Method Indwelling Catheter Indwelling Catheter Indwelling Catheter # Voids 1 # Bowel Movements 6 ABP, PAP, CO, CI - Last Documented Arterial Blood Pressure 125/73 - Labs CBC & Chem 7: 09/16/23 09:22 09/16/23 09:22 Labs: Abnormal Lab Results - Last 24 Hours (Table) 09/16/23 09/16/23 09/16/23 Range/Units 20:06 20:21 20:32 POC Glucose (mg/dL) 58 L 67 L 69 L (70-110) mg/dL 09/17/23 09/17/23 Range/Units 06:06 11:22 POC Glucose (mg/dL) 126 H 179 H (70-110) mg/dL Microbiology - Last 24 Hours (Table) 09/15/23 15:46 Gram Stain - Preliminary Catheter Site
--- NOTE | 2023-09-17 12:30 | P.PN ---
Subjective Patient is seen in follow-up for acute kidney injury. Renal function stable as of yesterday. On IV Lasix. Nonoliguric. Oral intake is good. Sitter at bedside. Vital signs are stable. General: Resting in bed. HEENT: On nasal cannula. LUNGS: No audible rhonchi or wheezes. HEART: Rate and Rhythm are regular. ABDOMEN: No distention. EXTREMITITES: Trace edema. Objective - Vital Signs Vital signs: Vital Signs Temp 97.4 F L 09/17/23 07:10 Pulse 79 09/17/23 07:10 Resp 17 09/17/23 07:10 BP 161/79 09/17/23 07:10 Pulse Ox 94 L 09/17/23 07:10 FiO2 3 09/02/23 04:00 Intake & Output 09/16/23 09/17/23 09/17/23 18:59 06:59 18:59 Intake Total 470 Output Total 600 Balance -130 Weight 53 kg Intake: IV 470 Invasive Line 9 20 Output: Urine 600 Other: Voiding Method Indwelling Catheter Indwelling Catheter Indwelling Catheter # Voids 1 # Bowel Movements 6 ABP, PAP, CO, CI - Last Documented Arterial Blood Pressure 125/73 - Labs CBC & Chem 7: 09/16/23 09:22 09/16/23 09:22 Labs: Abnormal Lab Results - Last 24 Hours (Table) 09/16/23 09/16/23 09/16/23 Range/Units 20:06 20:21 20:32 POC Glucose (mg/dL) 58 L 67 L 69 L (70-110) mg/dL 09/17/23 09/17/23 Range/Units 06:06 11:22 POC Glucose (mg/dL) 126 H 179 H (70-110) mg/dL Microbiology - Last 24 Hours (Table) 09/15/23 15:46 Gram Stain - Preliminary Catheter Site Assessment and Plan Plan: Assessment: 1. Acute kidney injury on chronic kidney disease secondary to ATN secondary to cardiorenal syndrome and cardiac arrest. Creatinine 1.5 admission and peaked at 2.98 this admission -stable at 1.45 yesterday. Patient was on hemodialysis in the past with last treatment being July 02, 2023. 2. Volume overload. Improved with diuresis. 3. Acute on chronic diastolic CHF. 4. Diabetes mellitus. 5. Right foot wound. 6. Coronary disease with cardiac stenting. 7. Status post PEA arrest with concern for anoxic encephalopathy. 8. Septic shock with urine culture positive for E. coli and catheter tip culture positive for Corynebacterium. On antibiotics. Off vasopressors. 9. Metabolic acidosis secondary to acute kidney injury and IV fluids. Improved. 10. Anemia. Iron deficiency noted. Status post IV iron. On Aranesp. Also received blood transfusion this admission. 11. Hypernatremia from lack of oral water intake and free water diuresis. Sta tus post D5W. Improved. Plan: Stop IV Lasix. Add torsemide 20 mg once daily. Encouraged oral intake, including free water. Avoid nephrotoxins. Continue to monitor renal function and urine output.
--- NOTE | 2023-09-17 13:28 | P.PN ---
Subjective Progress Note Date: 09/17/23 CHIEF COMPLAINT: GI bleed HISTORY OF PRESENT ILLNESS: Patient is status post EGD revealing antral gastrit is. No further bleeding reported. No black stools noted. Hemoglobin stable at 9.4. Patient denies any abdominal pain. PHYSICAL EXAM: VITAL SIGNS: Reviewed. GENERAL: Well-developed in no acute distress. ABDOMEN: Soft. Nondistended. Nontender. NEUROLOGIC: Alert and oriented. Cranial nerves II through XII grossly intact. ASSESSMENT: 1. Acute GI bleed with melanotic stools and now resolved. Status post EGD revealing antral gastritis PLAN: -Continue PPI -Continue regular diet -Patient can be discharge from surgical standpoint when medically cleared Physician Obstetrics Specialist note has been reviewed by physician. Signing provider agrees with the documented findings, assessment, and plan of care. Objective - Vital Signs Vital signs: Vital Signs Temp 97.4 F L 09/17/23 07:10 Pulse 79 09/17/23 07:10 Resp 17 09/17/23 07:10 BP 161/79 09/17/23 07:10 Pulse Ox 94 L 09/17/23 07:10 FiO2 3 09/02/23 04:00 Intake & Output 09/16/23 09/17/23 09/17/23 18:59 06:59 18:59 Intake Total 470 Output Total 600 Balance -130 Weight 53 kg Intake: IV 470 Invasive Line 9 20 Output: Urine 600 Other: Voiding Method Indwelling Catheter Indwelling Catheter Indwelling Catheter # Voids 1 # Bowel Movements 6 ABP, PAP, CO, CI - Last Documented Arterial Blood Pressure 125/73 - Labs CBC & Chem 7: 09/16/23 09:22 09/16/23 09:22 Labs: Abnormal Lab Results - Last 24 Hours (Table) 09/16/23 09/16/23 09/16/23 Range/Units 20:06 20:21 20:32 POC Glucose (mg/dL) 58 L 67 L 69 L (70-110) mg/dL 09/17/23 09/17/23 Range/Units 06:06 11:22 POC Glucose (mg/dL) 126 H 179 H (70-110) mg/dL Microbiology - Last 24 Hours (Table) 09/15/23 15:46 Gram Stain - Preliminary Catheter Site
--- NOTE | 2023-09-17 14:37 | P.PN ---
Subjective Progress Note Date: 09/17/23 Principal diagnosis: Reason for follow-up is right heel diabetic foot ulcer Patient is a 57-year-old female with a past medical history significant for diabetes mellitus hypertension hyperlipidemia history of renal insufficiency requiring dialysis currently not on dialysis and the patient also have a chronic nonhealing wound to the right heel area, present to the hospital with increasing shortness of breath and swelling concerning for fluid overload.Patient did have a cardiac arrest around 4 AM 08/23/2023 with the patient went into asystole got resuscitated intubated and transferred to the ICU subsequently have another cardiac arrest with PEA rhythm not resuscitated. On today's evaluation that is 09/17/2023, the patient continues to be afebrile, the patient is on room air and breathing comfortably, the Pt denies having any chest pain or cough, the patient denies having any abdominal pain no vomiting patient did have multiple loose stools per the nursing staff stool for CT was sent this morning which came back negative. No new labs has been obtained today Objective - Vital Signs Vital signs: Vital Signs Temp 98.0 F 09/17/23 13:40 Pulse 89 09/17/23 13:40 Resp 17 09/17/23 13:40 BP 128/70 09/17/23 13:40 Pulse Ox 98 09/17/23 13:40 FiO2 3 09/02/23 04:00 Intake & Output 09/16/23 09/17/23 09/17/23 18:59 06:59 18:59 Intake Total 470 Output Total 600 Balance -130 Weight 53 kg Intake: IV 470 Invasive Line 9 20 Output: Urine 600 Other: Voiding Method Indwelling Catheter Indwelling Catheter Indwelling Catheter # Voids 1 # Bowel Movements 6 ABP, PAP, CO, CI - Last Documented Arterial Blood Pressure 125/73 - Exam GENERAL DESCRIPTION: Middle-aged female lying in bed in no distress RESPIRATORY SYSTEM: Unlabored breathing , decreased breath sounds at bases HEART: S1 S2 regular rate and rhythm , ABDOMEN: Soft , no tenderness EXTREMITIES: Right heel wound is currently dressed no drainage - Labs CBC & Chem 7: 09/16/23 09:22 09/16/23 09:22 Labs: Abnormal Lab Results - Last 24 Hours (Table) 09/16/23 09/16/23 09/16/23 Range/Units 20:06 20:21 20:32 POC Glucose (mg/dL) 58 L 67 L 69 L (70-110) mg/dL 09/17/23 09/17/23 Range/Units 06:06 11:22 POC Glucose (mg/dL) 126 H 179 H (70-110) mg/dL Microbiology - Last 24 Hours (Table) 09/15/23 15:46 Gram Stain - Preliminary Catheter Site Assessment and Plan (1) Pressure ulcer of right heel, stage 3 Current Visit: No Status: Acute Code(s): L89.613 - PRESSURE ULCER OF RIGHT HEEL, STAGE 3 SNOMED Code(s): 91024246016517 (2) Type 2 diabetes mellitus with foot ulcer Current Visit: No Status: Acute Code(s): E11.621 - TYPE 2 DIABETES MELLITUS WITH FOOT ULCER; L97.509 - NON-PRESSURE CHRONIC ULCER OTH PRT UNSP FOOT W UNSP SEVERITY SNOMED Code(s): 459029493 (3) UTI (urinary tract infection) Current Visit: Yes Status: Acute Code(s): N39.0 - URINARY TRACT INFECTION, SITE NOT SPECIFIED SNOMED Code(s): 40198531 (4) Aspiration pneumonia Current Visit: Yes Status: Acute Code(s): J69.0 - PNEUMONITIS DUE TO INHA LATION OF FOOD AND VOMIT SNOMED Code(s): 316230245 Plan: 1patient with chronic nonhealing wound to the right heel area which has been there for a couple of months now patient overall wound base looks clean with no slough tissue in the wound base, patient to continue local wound care with Aquacel silver dressing change every 48 hours 2-patient did have cellulitis to the left chest wall site of previous dialysis catheter insertion and some purulent drainage reported by nursing staff erythema to the right upper chest wall slightly decreased continue daptomycin 3-diarrhea, stool for C. difficile is negative continue with symptomatic jon atment Dictation was produced using [employer] dictation software. please excuse any grammatical, word or spelling errors. Time with Patient: Less than 30
[2023-09-17 15:40] LABS: Basophils % (A) 1.8 %; Eosinophils # (A) 0.26 X 10*3/uL (0.04-0.35); Eosinophils % (A) 4.7 %; HCT 30.3 % (37.2-46.3); HGB 9.2 g/dL (12.0-15.0); Lymphocytes # (A) 1.05 X 10*3/uL (0.90-5.00); Lymphocytes % (A) 19.1 %; MCH 28.2 pg (27.0-32.0); MCHC 30.4 g/dL (32.0-37.0); MCV 92.9 FL (80.0-97.0); Mean Platelet Volume 10.7 FL (9.5-12.2); Monocytes # (A) 0.88 X 10*3/uL (0.20-1.00); NRBC Per 100 WBC 0 X 10*3/uL (0.00-0.01); Neutrophils # (A) 3.17 X 10*3/uL (1.80-7.70); Neutrophils % (A) 57.5 %; Platelet Count 272 X 10*3/uL (140-440); RBC 3.26 X 10*6/uL (4.10-5.20); RDW 16.9 % (11.5-14.5); WBC 5.51 X 10*3/uL (4.50-10.00)
[2023-09-17 16:12] LABS: ALT 27 U/L (8-44); AST 34 U/L (13-35); Albumin 3.1 g/dL (3.8-4.9); Albumin/Globulin Ratio 0.91 Ratio (1.60-3.17); Alkaline Phosphatase 220 U/L (41-126); Blood Urea Nitrogen 25.8 mg/dL (9.0-27.0); Calcium 8.2 mg/dL (8.7-10.3); Carbon Dioxide 26.9 mmol/L (21.6-31.8); Chloride 104 mmol/L (96-109); Globulin 3.4 g/dL (1.6-3.3); Glucose 159 mg/dL (70-110); Magnesium 2.1 mg/dL (1.5-2.4); Potassium 3.6 mmol/L (3.5-5.5); Sodium 143 mmol/L (135-145); Total Bilirubin 0.5 mg/dL (0.3-1.2); Total Protein 6.5 g/dL (6.2-8.2)
[2023-09-17 16:17] LABS: Glucose,Whole Blood 198 mg/dL (70-110)
[2023-09-17 20:04] LABS: Glucose,Whole Blood 161 mg/dL (70-110)
--- NOTE | 2023-09-17 22:39 | P.PN ---
Subjective Progress Note Date: 09/17/23 On today's evaluation of 09/16/2023, mental status is still unchanged and the patient continues to have restlessness in bed requiring a sitter at the bedside at all times. No focal neurological deficits. The patient is currently on risperidone 2 mg p.o. twice a day and the patient is also on Requip 1 mg at bedtime. No significant respiratory distress. The patient is currently on room air oxygen with a pulse ox of 90%. There is also suspicion for a GI bleed. The patient's hemoglobin is currently at 9.4 with a white cell count of 4.8. BUN is at 30 with a creatinine of 1.45 and a sodium level of 141. The patient is to undergo an EGD today regarding workup for GI bleeding. On today's evaluation of 09/17/2023, the patient seems to be calm and comfortable without any significant restlessness or agitation. She is answering questions appropriately and she seems to be quite responsive at this point in time. Noted EGD was done yesterday and there was no indication for any acute bleeding and t he patient's hemoglobin has remained stable. No fever. No chills. The white cell count today is at 5.5 with a hemoglobin 9.2 and a platelet count of 272. Electrolytes are normal. BUN is at 25 with a creatinine of 1.5 consistent with chronic kidney disease and the creatinine has been stable. LFTs are also within normal limits. Stool for C. difficile has been negative. The patient remains on risperidone 2 mg p.o. twice daily and the patient is also on Requip. No other significant events overnight. Sitter remains at the bedside. Infectious disease continues to follow-up this patient. Patient is being treated with broad-spectrum antibiotics. The patient has a chronic right heel wound in addition to an area of cellulitis at the site of the previously inserted dialysis catheter and the patient continues to be on daptomycin. Objective - Vital Signs Vital signs: Vital Signs Temp 97.4 F L 09/17/23 07:10 Pulse 79 09/17/23 07:10 Resp 17 09/17/23 07:10 BP 161/79 09/17/23 07:10 Pulse Ox 94 L 09/17/23 07:10 FiO2 3 09/02/23 04:00 Intake & Output 09/16/23 09/17/23 09/17/23 18:59 06:59 18:59 Intake Total 470 Output Total 600 Balance -130 Weight 53 kg Intake: IV 470 Invasive Line 9 20 Output: Urine 600 Other: Voiding Method Indwelling Catheter Indwelling Catheter # Voids 1 # Bowel Movements 6 ABP, PAP, CO, CI - Last Documented Arterial Blood Pressure 125/73 - Exam No acute distress, calm and comfortable on room air oxygen, comfortable in bed without any agitation, able to communicate. Head exam was generally normal. There was no scleral icterus or corneal arcus. Mucous membranes were moist. HEENT examination is grossly unremarkable. Neck supple. Full range of motion. No adenopathy thyromegaly or neck vein distention. Cardiovascular examination reveals regular rhythm rate. S1-S2 normal. No S3 or S4. No discernible murmur noted. Heart sounds are distant. Lungs reveal scattered bilateral rhonchi. No wheezes or crackles. Breath sounds equal bilaterally. Abdomen soft without bowel sounds. Extremities are intact. No cyanosis clubbing or edema. The patient has a soft splint in her right lower extremity. Pulses are diminished at the present in all 4 extremities. Skin is without rash or lesion. Stage III nonhealing heel ulcer in the right lower extremity. Neurologic examination No focal neurological deficits. Pupils are equal reactive to light. - Labs CBC & Chem 7: 09/17/23 09:24 09/17/23 09:24 Labs: Abnormal Lab Results - Last 24 Hours (Table) 09/16/23 09/16/23 09/16/23 Range/Units 20:06 20:21 20:32 POC Glucose (mg/dL) 58 L 67 L 69 L (70-110) mg/dL 09/17/23 Range/Units 06:06 POC Glucose (mg/dL) 126 H (70-110) mg/dL Microbiology - Last 24 Hours (Table) 09/15/23 15:46 Gram Stain - Preliminary Catheter Site Assessment and Plan Plan: Cardiopulmonary arrest, x 2, with cardiopulmonary resuscitation, and return of spontaneous circulation on 08/23/23. Acute hypoxic respiratory failure, postcardiac arrest. The patient currently on room air oxygen S/P intubation, and mechanical ventilation, secondary to cardiopulmonary arrest, August 23, 2023. She was extubated on 08/25/23. Encephalopathy, multifactorial, suspect post anoxic encephalopathy and cardiac arrest. Currently on risperidone and Requip for ongoing restlessness and encephalopathy. Patient is currently on risperidone 2 mg p.o. twice then the patient seems to be quite comfortable, and her mental status has improved over the past 24 hours History of congestive heart failure (HFPEF) Coronary artery disease/cardiomyopathy and the patient is post non-ST segment elevation myocardial infarction. Stage III chronic kidney disease. Right heel pressure ulcer, stage III. Subacute fracture of the medial and lateral malleolus. History of hypertension. History of hyperlipidemia. History of type 2 diabetes mellitus. History of severe pulmonary hypertension. History of COPD. History of peripheral neuropathy. Chest wall pain related to CPR. Plan: Continue same medication EGD was noted and there is no evidence of any upper GI source of bleeding and it showed some mild antral gastritis and hemoglobin stable for now Monitor hemoglobin Respiratory status stable ID to manage the antibiotics and the patient is still on daptomycin Will continue to follow I will see on today's evaluation she is quite improved and seems to be much comfortable at least neurologic standpoint.
--- NOTE | 2023-09-18 06:02 | P.PN ---
Subjective Progress Note Date: 09/17/23 57-year-old female came in with complaints of shortness of breath and orthopnea found to be in congestive heart failure exacerbation patient has congestive heart failure with reduced ejection fraction in the past patient has increasing pedal edema. Patient also has an ulcer in the right foot stage III-IV which appeared to be infected we will consult wound care and infectious disease. Patient was on hemodialysis during last hospitalization her creatinine presently is 1.5 which is significantly improved patient potassium is 5.5, patient is on Entresto and Aldactone Aldactone will be held Entresto will be continued since she is receiving IV Lasix and expecting her potassium to improve if it does not improve or get worse then Entresto need to be discontinued as well. Patient has hypervolemic hyponatremia and hyperglycemia. 08/21/2023 Was evaluated today on the medical floor. Patient was continued on IV Lasix overnight however she was no longer reporting any shortness of breath and her lower extremity edema has improved. She was taken off of the Lasix at this time due to increased creatinine up to 2.31 additionally potassium remains elevated at 5.7. Echocardiogram comes back showing an improved ejection fraction of 60 to 65% because of this and also the hyperkalemia patient will not be continued on entresto. Patient was evaluated by infectious disease who felt like that heel ulcer on the right side was more likely a pressure injury stage III and is recommending local wound care to continue with Aquacel. Patient is reporting significant pain to the right foot and feels like it is fractured. Upon review of the patient's chart she did have a x-ray completed of this 12 days ago ordered by her gas brazer Dr. Mayen. Ankle x-ray did review a mildly displaced acute distal fibular fracture. Repeat x-ray of the foot and ankle completed today does reveal a subacute fractures of the medial and lateral malleolus. The lateral malleolus fracture was seen on the patient's prior exam the medial malleolus fracture may be new in the interval and this would be considered an unstable ankle fracture. There is interval 6 mm displacement of the lateral malleolus. There is a deep soft tissue ulcer at the plantar heel with no clear radiographic findings of a contagious osteomyelitis at this time. Orthooedics was consulted for this. 08/22/2023 Patient evaluated in follow-up today resting in bed. She was taken off of the Lasix remains off at this time. Bladder scan was requested and not done yesterday to rule out urinary retention, creatinine today is increased up to 2.56. Bladder scan was done require urinary straight catheterization of 550 mL taken out. Urinalysis was sent which is significantly abnormal. Patient is also noted to have multiple genital lesions which appear wartlike she admits to not having any routine gynecological screenings for many years. She is not having any vaginal bleeding or discharge. Renal ultrasound has been ordered to rule out any obstructive uropathy. 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 Patient upon arrival to the intensive care unit had another episode of cardiac arrest patient had bradycardia while on pressors in the ICU patient was intubated following the first cardiac arrest and is currently on the mechanical ventilator 50% FiO2. Chest x-ray showing similar interstitial and patchy component airspace disease right greater than left. There is a possible trace left pleural effusion. A brain CT which shows no acute intracranial process. Blood work today shows a white blood cell count of 13.8, hemoglobin 9.5, sodium level of 135, BUN of 62, creatinine of 2.76. AST ALT and alk phosphatase are significantly elevated consistent with a shock liver. TSH 3.310. Urinalysis is abnormal. Her urine culture is showing gram-negative bacilli patient is covered for the urinary tract infection as well as aspiration with IV Zosyn being managed by infectious disease. Patient is currently sedated with propofol and did require vasopressor support with Levophed which has been weaned at this time. Will discontinue the gabapentin patient is continued on aspirin Plavix and statin has been placed on hold. There is concern for possible arrhythmia precipitating the asystole additionally we need to rule out embolism and a D-dimer has been ordered. 08/24/2023 Patient is seen in follow-up today continues in the ICU on mechanical ventilation. FiO2 is 50% although titrating and was just placed at 40% with a PEEP of 5. Chest x-ray today shows that the ET tube is 7 mm from the sonam suggesting a pulled back 2 cm and reassess and also suspected underlying vascular congestion. Neuro is following and per nursing staff patient is following some simple commands and undergoing sedation holidays. Patient noted to have reduced EF of 30 to 35% and cardiology had been following. Will reconsult and appreciate input and recommendations. patient did have dialysis catheter removed and sent for cultures which are pending. Infectious disease following and patient is maintained on antibiotic. D-dimer is elevated above 16 and will attempt to obtain a VQ scan.57-year-old female came in with complaints of shortness of breath and orthopnea found to be in congestive heart failure exacerbation patient has congestive heart failure with reduced ejection fraction in the past patient has increasing pedal edema. Patient also has an ulcer in the right foot stage III-IV which appeared to be infected we will consult wound care and infectious disease. Patient was on hemodialysis during last hospitalization her creatinine presently is 1.5 which is significantly improved patient potassium is 5.5, patient is on Entresto and Aldactone Aldactone will be held Entresto will be continued since she is receiving IV Lasix and expecting her potassium to improve if it does not improve or get worse then Entresto need to be discontinued as well. Patient has hypervolemic hyponatremia and hyperglycemia. 08/21/2023 Was evaluated today on the medical floor. Patient was continued on IV Lasix overnight however she was no longer reporting any shortness of breath and her lower extremity edema has improved. She was taken off of the Lasix at this time due to increased creatinine up to 2.31 additionally potassium remains elevated at 5.7. Echocardiogram comes back showing an improved ejection fraction of 60 to 65% because of this and also the hyperkalemia patient will not be continued on entresto. Patient was evaluated by infectious disease who felt like that heel ulcer on the right side was more likely a pressure injury stage III and is recommending local wound care to continue with Aquacel. Patient is reporting significant pain to the right foot and feels like it is fractured. Upon review of the patient's chart she did have a x-ray completed of this 12 days ago ordered by her gas brazer Dr. Mayen. Ankle x-ray did review a mildly displaced acute distal fibular fracture. Repeat x-ray of the foot and ankle completed today does reveal a subacute fractures of the medial and lateral malleolus. The lateral malleolus fracture was seen on the patient's prior exam the medial malleolus fracture may be new in the interval and this would be considered an unstable ankle fracture. There is interval 6 mm displacement of the lateral malleolus. There is a deep soft tissue ulcer at the plantar heel with no clear radiographic findings of a contagious osteomyelitis at this time. Orthooedics was consulted for this. 08/22/2023 Patient evaluated in follow-up today resting in bed. She was taken off of the Lasix remains off at this time. Bladder scan was requested and not done yesterday to rule out urinary retention, creatinine today is increased up to 2.56. Bladder scan was done require urinary straight catheterization of 550 mL taken out. Urinalysis was sent which is significantly abnormal. Patient is also noted to have multiple genital lesions which appear wartlike she admits to not having any routine gynecological screenings for many years. She is not having any vaginal bleeding or discharge. Renal ultrasound has been ordered to rule out any obstructive uropathy. 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 Patient upon arrival to the intensive care unit had another episode of cardiac arrest patient had bradycardia while on pressors in the ICU patient was intubated following the first cardiac arrest and is currently on the mechanical ventilator 50% FiO2. Chest x-ray showing similar interstitial and patchy component airspace disease right greater than left. There is a possible trace left pleural effusion. A brain CT which shows no acute intracranial process. Blood work today shows a white blood cell count of 13.8, hemoglobin 9.5, sodium level of 135, BUN of 62, creatinine of 2.76. AST ALT and alk phosphatase are significantly elevated consistent with a shock liver. TSH 3.310. Urinalysis is abnormal. Her urine culture is showing gram-negative bacilli patient is covered for the urinary tract infection as well as aspiration with IV Zosyn being managed by infectious disease. Patient is currently sedated with propofol and did require vasopressor support with Levophed which has been weaned at this time. Will discontinue the gabapentin patient is continued on aspirin Plavix and statin has been placed on hold. There is concern for possible arrhythmia precipitating the asystole additionally we need to rule out embolism and a D-dimer has been ordered. 08/24/2023 Patient is seen in follow-up today continues in the ICU on mechanical ventil ation. FiO2 is 50% although titrating and was just placed at 40% with a PEEP of 5. Chest x-ray today shows that the ET tube is 7 mm from the sonam suggesting a pulled back 2 cm and reassess and also suspected underlying vascular congestion. Neuro is following and per nursing staff patient is following some simple commands and undergoing sedation holidays. Patient noted to have reduced EF of 30 to 35% and cardiology had been following. Will reconsult and appreciate input and recommendations. patient did have dialysis catheter removed and sent for cultures which are pending. Infectious disease following and patient is maintained on antibiotic. D-dimer is elevated above 16 and will atte mpt to obtain a VQ scan. 08/25/23 : Patient seen and evaluated at bedside, patient extubated around noon, transition to 5 L of oxygen to nasal cannula. Family at bedside, blood work reviewed hemoglobin 10.3, serum chemistry reviewed sodium 140 potassium 4.8 BUN 57 creatinine 2.49 calcium of 7. 08/26/23 : Patient seen and evaluated at bedside, patient remains in medical ICU, does complain of chest pain from CPR. Patient has been weaned off dopamine, cardiology following, blood work reviewed, hemoglobin 8.5 platelet count of 217, serum chemistry shows sodium 141 BUN 51 creatinine 2.28. Followed up by nephrology as well MARYLOU secondary to ATN continue to monitor intake and output 08/27/23: Patient seen and evaluated bedside, on evaluation patient is disoriented, patient is drowsy however likely having acute delirium. Seen by cardiology echocardiogram shows preserved ejection fraction continue with current medical management, patient on Precedex for acute delirium, continue to remain on oxygen supplementation with nasal cannula blood work reviewed CBC showed WBC 8.2 hemoglobin 8.6 serum chemistry showed creatinine of 2.22. Patient remains delirious, daughter at bedside all questions answered 08/28/2023 Patient was agitated earlier requiring Seroquel and Placed on Precedex because she was has risk to self and others Currently when I saw the patient she was sleepy However she is not tachypneic show does not look in pain. Vitals are stable She is saturating 91% on 2 L oxygen via nasal cannula She remains on Zosyn for pneumonia and UTI She is on normal saline at 50 mL/h 08/29/2023 Patient remains sleepy, she still has some encephalopathy But she is on Precedex which will be tapered off by pulmonary team today to assess her mentation as well. Patient has been followed by neurology for suspected anoxic brain injury after her cardiac arrest and return of circulation on 08/22. There is no evidence of seizure-like activity She has catheter tip infection with culture growing Corynebacterium species and she is currently covered with Zosyn which also help for her right heel pressure ulcer and aspiration pneumonia and UTI. Cardiology evaluated the patient and there is no clear evidence for her cardiac arrest although she has history of coronary artery disease and previous stents. Currently with no chest pain. She remains on aspirin and Plavix, gentle hydration, IV steroids 08/30/2023 Today her sedation remains off however patient mentation not completely resolved, it is somewhat better as she was more sleepy yesterday She is eating okay, swallowing is fine She was started on IV Lasix twice daily per manager infrastructure. She has good urine output and normal send discontinued She is hemodynamically stable and oxygenation is acceptable Remains on aspirin and Plavix and Seroquel 08/31/23: Seen and evaluated at bedside, patient remains on 4 L of oxygen, blood work reviewed, WBC 7.3 hemoglobin 9.1 platelet count of 203 glucose 119. CBC reviewed showed WBC 7.3 hemoglobin 9.1 platelet count of 203.. Neurology consulted and following. Patient is awake and alert able to answer questions and follow commands sister at bedside all questions answered 09/01/23: Seen and evaluated at bedside, patient vitals reviewed, serum chemistry reviewed sodium 145 potassium 4.6 creatinine 2.71, CBC reviewed patient remains on IV Zosyn , appreciate input from nephrology continue patient on IV Lasix, delirium persist 09/02/23: Patient seen and evaluated bedside, patient been admitted for cardiopulmonary arrest, respiratory failure s/p extubation on nasal cannula however continues to remain delirious. Blood work reviewed hemoglobin 8.8, platelet count 226, serum chemistry reviewed creatinine 2.55 potassium 4.5. MRI brain has been ordered which is pending, patient remains disoriented 09/03/2023 Patient is seen in follow-up status post recent extubation maintained on a few liters of pulmonary election supervisor following closely. Cardiology following as well and adjusted medications recommending continuing with current medication regimen. No change in mentation as patient continues with periods of confusion and restlessness. Medications being adjusted and Ativan as needed has been added. Continue Seroquel. Patient will answer questions appropriately and discuss her health history and can recall her doctors names but will ramble on regarding something irrelevant during conversation. Patient is redirectable. Patient continues with partial cast noted on the lower extremity. Patient continues on IV Lasix and kidney functions are improving nephrology following closely. Plan is for patient to possibly move out of the ICU. Will have PT/OT therapy evaluate the patient and discuss further with consultations along with case management regarding possible ECF versus discharge planning. 09/04/2023 Patient seen in follow-up today and continues to have periods of confusion and restlessness. Patient continues in the ICU with multiple medical consultations following. Hemoglobin was found to be less than 7 today and will transfuse 1 unit of PRBC. Sodium 147 and recommend repeat labs as well. Nephrology is following and patient is continued on IV Lasix. MRI of the brain remains pending and neurology is following. 09/05/2023 Patient is seen and evaluated today continues to be in the ICU needs continuous reinforcement on keeping oxygen on. Patient does have a safety consultant at the bedside. Patient is currently resting although remains confused and anxious and agitated at times. Hemoglobin is stable above 7 status post 1 unit of PRBC. Patient continues on IV Lasix daily and nephrology following closely. Patient to continue on IV antibiotics with infectious disease following. 09/06/2023 Patient seen in follow-up today continues to be sleepy at this time although when awake patient is extremely restless and agitated requiring sitter at the bedside. Adjustments to medications being made and Risperdal is being increased and will continue with Seroquel. Ativan as needed. Patient's hemoglobin is stable with no active bleeding noted. Neurology following as patient continues to be unable to obtain an MRI and will have a repeat EEG as well as CT brain per neurology. Patient is afebrile and is continued on antibiotics with infectious disease following. 09/09/2023 Patient seen in follow-up today has been transitioned out of the ICU and curren tly on selective unit and continues with safety consultant at the bedside. Patient is keeping her oxygen on currently and is on 4 L. Multiple medical consultations following and per nursing staff patient was able to get up and work with physical therapy today. Plan is for ECF when patient's mentation is improved. Patient continues on IV Lasix twice daily as well with nephrology following. Continue Ativan as needed and patient is also maintained on Risperdal twice daily. Patient is afebrile with no reports of chest pain or shortness of breath. Hemoglobin is stable at 9.8 and white count is normal and kidney functions are improving. Continue monitoring Accu-Cheks before meals and at bedtime and will continue with sliding scale. Neurology following and patient is scheduled to undergo repeat brain CT today. Chest x-ray continues to show pulmonary vascular congestion. 09/10/2023 Patient is seen in follow-up today and mentation is much improved with family sitting at the bedside. Patient is able to have conversation and reports she is going home although patient has significant weakness and will be requiring ECF on discharge. Case management following awaiting for ECF evaluation and will require insurance authorization. Patient is afebrile and has been on IV antibiotics in the form of Zosyn with infectious disease following and white count remains normal and patient will be monitored off antibiotic therapy. Patient also continues on IV Lasix twice daily along with treatments and continued supplemental oxygen. Patient is on 4 L via nasal cannula. 09/11/2023 Patient is seen in follow-up this morning continues to display periods of confusion with increased agitation and restlessness. Per nursing staff patient had reports of hallucinating and seeing things crawling in the room that were not there. Patient is extremely anxious today although continues to be more mikaela ke. Patient reports is eating without much of an appetite. Patient has been compliant with working with physical therapy and will require ECF on discharge. Patient continues with safety consultant as patient is impulsive and attempts to get up out of the bed impulsively. Will ask for psychiatry to reevaluate and adjust medications. Will discontinue Dilaudid as the hallucinations appeared shortly after receiving this medication. Patient does elicit pain in the right leg and foot. 09/12/2023 Patient is seen in follow-up today and continues with confusion and requiring a sitter for safety. Patient has been working with physical therapy and reports she is doing well and ready to go home although she will require ECF for continued strength and mobility. Patient is extremely impulsive and restless at times. Asking psychiatry to reevaluate and will adjust medications. Family also working on obtaining guardianship as patient is not making sound decisions for herself medically. Family report they also cannot take her home and take care of her as they are elderly. Patient is afebrile with no reported chest pain or shortness of breath. Patient continues on 4 L and continues to remove her oxygen frequently. Patient is maintained on IV Lasix and being transition to daily. Continue monitoring kidney functions and nephrology is following. Being monitored off antibiotic therapy 09/13/2023 Patient is seen in follow-up this morning continues with a sitter at the bedside. Per nursing staff patient had a large black bowel movement and was incontinent. Occult Was positive and stat repeat hemoglobin was obtained and actually improved from previous at 9.5. Patient is maintained on aspirin, Plavix, and heparin and will hold for now. No GI available and will consult general surgery for evaluation of possible GI bleed. Contents do not appear to be melanotic on exam although dark stools are noted. Multiple other consultations following as well as psychiatry who reevaluated and adjusted medications. Mentation is improved today and less anxious and agitated and per nursing staff more appropriate today. Will continue current regimen and also continue MEDIA/INSTRUCTIONAL DESIGNER and narcotic agents. 09/14/2023 Patient is evaluated in follow-up with sister at the bedside as well as family. General surgery is planning for an upper endoscopy on Saturday with no further reports of any black or bloody stool. Aspirin Plavix and heparin remain on hold. Patient was seen in follow-up by psychiatry for now continues on Prolixin as needed, olanzapine as needed. Patient is maintained on risperidone twice a day scheduled. Patient's mentation she is currently alert x 1-0 she is hallucinating and appears delirious. Continues on IV Lasix 40 mg every 12 hours. Continues on IV daptomycin. Continues in the cast to the right lower extremity. Bun is 32, creatinine is 1.57, magnesium 1.7. White blood cell count 5.1. 09/15/2023 Patient evaluated today with safety consultant at the bedside. Patient has no further episodes of bloody stool and is scheduled to undergo an endoscopy on Saturday. Patient is more awake alert today and is more appropriate although she continues to have hallucinations. Patient continues on IV daptomycin with concerns for lower extremity cellulitis. No significant complaints today. 09/16/2023 Patient is seen in follow-up continues with confusion and sitter at the bedside. Patient is n.p.o. currently and scheduled to undergo EGD today with general surgery. Hemoglobin is stable and 9.4 with no active bleeding other than nosebleed. Patient is maintained on Afrin as needed. Patient continues on room air and weaning as tolerated. 91% on room air with pulmonary following. Case management/social work following as well with plans on attempting to have patient go to ECF for significant weakness. Patient continues with sitter at this time making it difficult for placement although patient continues to be somewhat confused and restless and impulsive. Patient is afebrile with no reports of chest pain or shortness of breath. Patient currently n.p.o. and diet will be resumed once cleared by surgery. Kidney functions improving and patient remains on IV Lasix with nephrology following. 09/17/2023 Patient seen and evaluated in follow-up this morning and mood is appropriate, less anxious and restless and responding more appropriately to questions and com mands. Patient does have a sitter for safety at the bedside and if mentation continues to improve need to consider having sitter removed. Patient with significant weakness and prolonged hospitalization will need ECF on discharge. Parents are working on guardianship to help with patient's overall medical care. Patient maintained on IV Lasix showing improvements with nephrology following and will be switching to torsemide. Follow-up on repeat labs and replace electrolytes per protocol. Hemoglobin is stable above 9 with no active bleeding noted. Patient is status post EGD showing antral gastritis. Patient continues to have incontinence with multiple bowel movements although no dark stools or bleeding noted. Cardiology following recommending resuming Plavix when bleeding is stable. Patient continues to have intermittent nosebleeds and has been placed on humidification as patient continues on 4 L via nasal cannula. Patient found multiple times on exam on room air with no oxygen. Recommend to wean FiO2 as tolerated and documented evaluate oxygen saturations while on room air. Recommend PT/OT therapy daily. Review of systems: Constitutional: No reports of fatigue, fever, or chills, reports feeling less anxious Cardiovascular: No reports of chest pain or palpitations Respiratory: No reports of shortness of breath or cough GI: No reports of nausea, vomiting, reports having multiple bowel movements that are loose : No reports of dysuria or retention Neurovascular: reports of generalized weakness although patient reports would like to go home All medications have been reviewed PHYSICAL EXAMINATION: GENERAL: The patient is on nasal cannula, awake alert and oriented x 2, much more appropriate today, elderly appearing, unkept, ill-appearing HEENT: Pupils are round and equally reacting to light. EOMI. CARDIOVASCULAR: S1 and S2 muffled PULMONARY: Decreased breath sounds bilaterally with some scattered rhonchi noted ABDOMEN: Soft, nontender, nondistended, normoactive bowel sounds. No palpable organomegaly. MUSCULOSKELETAL: No joint swelling or deformity. EXTREMITIES: Right lower extremity bandage with partial cast noted NEUROLOGICAL: pupils reactive, less anxious today, cooperative SKIN: Patient has right plantar surface ulcer on the posterior foot stage III-IV with areas of necrotic tissue. Casting and Tam wrap noted of the right lower extremity Assessment: Asystole/cardiopulmonary arrest x 2 with CPR/ROSC, unknown etiology Respiratory failure requiring intubation s/p extubation 08/25/2023 Concerns for chest wall cellulitis near the previous dialysis site, continued on daptomycin with ID following Large black stools, concern for GI bleed, ruled out, EGD showed antral gastritis Acute metabolic encephalopathy with concerns of anoxia, status postcardiac arrest Congestive heart failure with systolic dysfunction acute on chronic exacerbation Acute hypoxic respiratory failure secondary to CHF Ischemic cardiomyopathy with improved EF Acute kidney injury secondary to ATN on chronic kidney disease stage III Urinary tract infection with E. coli Subacute fracture of the medial and lateral malleolus, orthopedics following Right heel stage III pressure injury continue local wound care with aquacel ID following. Genital lesions, will need surface grinding machine hand follow up outpatient for routine screenings Hypertension Hyperlipidemia Type 2 diabetes mellitus uncontrolled hgb a1c 12.1 Severe pulmonary hypertension COPD without any acute exacerbation Peripheral neuropathy GI prophylaxis DVT prophylaxis Full code Plan: Patient being followed by multiple medical consultation as well as safety consultant at the bedside Wean FiO2 as tolerated and patient is maintained on room air with oxygen saturations of 91%. Patient has been weaning FiO2 as tolerated and continues to take tubing off. Patient continues on IV Lasix daily, kidney functions are improving and nephrology following closely and will be transitioning to torsemide Patient will need reevaluation with PT/OT therapy for continued weakness and prolonged hospitalization as patient will most likely require ECF. Family feels unsafe to take care of her and care for her at home. They are currently working on guardianship as patient is not deemed capable of making sound medical decisions for herself. Mentation continues to wax and wane although patient is more awake today and able to respond and answer questions more appropriately. All MEDIA/INSTRUCTIONAL DESIGNER and narcotic agents being held and patient was reevaluated by psychiatry with adjustments to medications and will continue current regimen. Continue safety consultant at this time as patient is known to be very impulsive and attempts to get out of the bed very frequently Patient's hemoglobin remains above 9 with no active bleeding noted. Patient evaluated by general surgery and underwent EGD showing antral gastritis with no active bleeding noted. Patient continues with nosebleeds likely secondary to dryness from continued oxygen use and currently found on exam 91% on room air with no oxygen. Continue with Afrin as needed Infectious disease following and patient has been placed back on IV antibiotics with concerns of previous dialysis site chest wall cellulitis.. Patient continued on daptomycin. Patient remains afebrile and white count is within normal limits. Repeat CT of the brain is negative for acute process. Neurology following and patient has been unable to receive an MRI given patient's continued restlessness and anxiety Overall prognosis is guarded Need to remove the sitter The impression and plan of care has been dictated by Mouna Rowley, Nurse Practitioner as directed. Dr. Ricardo MD I have performed a history and examination and MDM of this patient, discussed the same with the dictator, and agree with the dictator's assessment and plan as written ,documented as a scribe. Based on total visit time, I have performed more than 50% of the visit. Objective - Vital Signs Vital signs: Vital Signs Temp 97.5 F L 09/18/23 02:00 Pulse 74 09/18/23 02:00 Resp 16 09/17/23 22:52 BP 148/76 09/18/23 02:00 Pulse Ox 98 09/18/23 02:00 FiO2 3 09/02/23 04:00 Intake & Output 09/17/23 09/17/23 09/18/23 06:59 18:59 06:59 Intake Total 10 Output Total 1500 Balance -1500 10 Intake: IV 10 Invasive Line 8 10 Output: Urine 1500 Other: Voiding Method Indwelling Catheter Indwelling Catheter Indwelling Catheter # Voids 1 # Bowel Movements 6 6 ABP, PAP, CO, CI - Last Documented Arterial Blood Pressure 125/73 - Labs CBC & Chem 7: 09/17/23 09:24 09/17/23 09:24 Labs: Abnormal Lab Results - Last 24 Hours (Table) 09/17/23 09/17/23 09/17/23 Range/Units 06:06 09:24 09:24 RBC 3.26 L (4.10-5.20) X 10*6/uL Hgb 9.2 L (12.0-15.0) g/dL Hct 30.3 L (37.2-46.3) % MCHC 30.4 L (32.0-37.0) g/dL RDW 16.9 H (11.5-14.5) % Immature Gran # 0.05 H (0.00-0.04) X 10*3/uL Anion Gap 12.10 H (4.00-12.00) mmol/L Est GFR (CKD-EPI) 40 L (>=60) Glucose 159 H (70-110) mg/dL POC Glucose (mg/dL) 126 H (70-110) mg/dL Calcium 8.2 L (8.7-10.3) mg/dL Alkaline Phosphatase 220 H (41-126) U/L Albumin 3.1 L (3.8-4.9) g/dL Globulin 3.4 H (1.6-3.3) g/dL Albumin/Globulin Ratio 0.91 L (1.60-3.17) Ratio 09/17/23 09/17/23 09/17/23 Range/Units 11:22 16:16 19:53 RBC (4.10-5.20) X 10*6/uL Hgb (12.0-15.0) g/dL Hct (37.2-46.3) % MCHC (32.0-37.0) g/dL RDW (11.5-14.5) % Immature Gran # (0.00-0.04) X 10*3/uL Anion Gap (4.00-12.00) mmol/L Est GFR (CKD-EPI) (>=60) Glucose (70-110) mg/dL POC Glucose (mg/dL) 179 H 198 H 161 H (70-110) mg/dL Calcium (8.7-10.3) mg/dL Alkaline Phosphatase (41-126) U/L Albumin (3.8-4.9) g/dL Globulin (1.6-3.3) g/dL Albumin/Globulin Ratio (1.60-3.17) Ratio
[2023-09-18 06:24] LABS: Glucose,Whole Blood 108 mg/dL (70-110)
[2023-09-18 07:28] LABS: Anisocytosis Slight; Basophils # (A) 0.1 k/uL (0-0.2); Basophils % (A) 1 %; Eosinophils # (A) 0.2 k/uL (0-0.7); Eosinophils % (A) 4 %; HCT 29.8 % (34.0-46.0); HGB 8.8 gm/dL (11.4-16.0); Hypochromasia Marked; Lymphocytes # (A) 0.8 k/uL (1.0-4.8); Lymphocytes % (A) 18 %; MCHC 29.6 g/dL (31.0-37.0); MCV 94.4 fL (80.0-100.0); Mean Platelet Volume 9.1; Monocytes # (A) 0.6 k/uL (0-1.0); Monocytes % (A) 14 %; Neutrophils # (A) 2.8 k/uL (1.3-7.7); Neutrophils % (A) 60 %; Platelet Count 245 k/uL (150-450); Poikilocytosis Moderate; RBC 3.16 m/uL (3.80-5.40); RDW 17.1 % (11.5-15.5); WBC 4.7 k/uL (3.8-10.6)
[2023-09-18 09:01] LABS: BUN/Creat Ratio 17.44 Ratio (12.00-20.00); Blood Urea Nitrogen 27.9 mg/dL (9.0-27.0); Chloride 105 mmol/L (96-109); Glucose 108 mg/dL (70-110); Potassium 3.7 mmol/L (3.5-5.5); Sodium 144 mmol/L (135-145)
[2023-09-18 09:02] LABS: Calcium 7.9 mg/dL (8.7-10.3)
[2023-09-18] MEDS: TORSEMIDE 20 MG TAB PO SCH (09:52)
--- NOTE | 2023-09-18 11:09 | P.PN ---
Subjective HISTORY OF PRESENT ILLNESS: This is a 57-year-old female with a past medical history significant for coronary artery disease with previous stenting, cardiomyopathy, hypertension, hyperlipidemia, diabetes, severe pulmonary hypertension, COPD, and chronic kidney disease previously on hemodialysis. Patient follows in the office with Dr. Jose. We have been asked to see the patient in consultation for congestive heart failure. Patient examined at the bedside in the emergency room. Patient presented to the hospital with a chief complaint of shortness of breath. She reports her shortness of breath started about a week ago. She also reports l ower extremity edema. Patient was previously on hemodialysis for renal failure. However she states she is no longer on hemodialysis and had her last session approximately 3 weeks ago. Patient's creatinine was 1.51 on admission which is improved from previous. Patient was found to be in acute CHF and was started on IV Lasix. Patient states she has been compliant with all of her medications. S he also reports she has been compliant with a low-sodium diet. DIAGNOSTICS: - EKG reveals sinus mechanism with nonspecific ST-T wave changes. - Chest xray correlate for fluid overload or mild CHF with pulmonary vascular congestion and trace effusions. - Laboratory data: WBC 9.2. Hemoglobin 10.5. Platelet count 230. Sodium 134. Potassium 5.5. BUN 39. Creatinine 1.51. Troponin negative x 1. proBNP 15,300. - Current home cardiac medications include Aldactone 25 mg daily, lisinopril 10 mg daily, hydralazine 25 mg 3 times a day, Demadex 40 mg daily, Zetia 10 mg daily, Farxiga 5 mg daily, Plavix 75 mg daily, Lipitor 40 mg daily, aspirin 81 mg daily, Imdur 15 mg daily. - Most recent echocardiogram obtained in April 2023 revealing ejection fraction 35 to 40%, severe pulmonary hypertension, enlarged right ventricle, moderate MR, moderate TR - Cardiac catheterization history: 06/24/2023 with stenting of the proximal RCA August 21, 2023 Patient examined this morning at the bedside. Patient denies chest pain or pressure. She currently denies shortness of breath. She is laying flat in bed and appears comfortable. Patient's blood pressures have been on the low side with a systolic in the 90s. Creatinine today increased to 2. 3 1 from 1.5 yesterday. Potassium remains elevated at 5.7. The patient was post be started on Entresto this morning. However her echocardiogram came back with improved LV function at 60 to 65% August 22, 2023 Patient examined this morning at the bedside. Patient denies chest pain or pressure. She denies shortness of breath. Creatinine today increased to 2.54. Blood pressure has increased today. The patient is a 57-year-old female with known history of hypertension, hyperlipidemia, diabetes mellitus as well as a history of coronary disease status post stenting of the RCA and chronic kidney disease who presented with dyspnea and had a cardiopulmonary arrest requiring CPR and mechanical ventilation. She is extubated, complaining of chest wall tenderness post CPR. She continues to be in sinus mechanism and hemodynamically stable. She had some bradycardia earlier and was started on IV dopamine. She is in sinus mechanism with no further bradycardia. Her urinary output has been stable. Her initial echo on presentation showed a preserved systolic function subsequently was found to have cardiomyopathy but that was done shortly after the event. She has a subacute fracture of the medial and lateral malleolus on the right side. August 26: The patient is sedated, she was quite agitated during the night. She had few episodes of sinus bradycardia, brief. She had no evidence of high-grade AV block. Her urinary output is stable. Her blood pressure is under good control without any vasopressors. Her repeat echocardiogram showed a preserved systolic function. She has been evaluated by neurology for possible anoxic encephalo rosemary. August 1: The patient is awake, confused. In sinus mechanism with no further episodes of high-grade AV block. Her blood pressure is stable. Her urinary output stable. There is no evidence of atrial fibrillation or ventricular ectopic activity. Repeat echocardiogram showed a normal left ventricle systolic function. August 2: The patient is sedated. She was agitated and confused during the night. She had no further episodes of bradycardia arrhythmia. Her blood pressure has been stable. She continues to be intubated. She is undergoing an EEG to evaluate her neurological status. There is no evidence of atrial fibrillation or ventricular tachyarrhythmia. August 29: The patient is more awake continues to have some episodes of confusion. She continues to be in sinus mechanism with no arrhythmia. Her EEG showed some improvement. Her urinary output has been good. Her blood pressure is stable and there is no evidence of significant hypotension. September 14, 2023 Seen and examined at bedside this a.m. Patient is confused and is in delirium state. She is needing a sitter to be present to calm her down. Mild volume overload 09/15 Patient has been transferred out of the intensive care unit. She is scheduled for EGD today due to GI bleed and stool for occult blood. Plavix is currently on hold but she has been continued on aspirin 81 mg daily. Patient remains quite confused with sitter at the bedside. Blood pressure 144/76, heart rate 82, pulse ox 90% on room air. Repeat blood work reveals stable hemoglobin of 9.4, BUN 30 creatinine 1.54. She is s/p transfusion of 2 units of packed RBCs. Patient has been picking at her nose and face and there is dried blood around her nose and mouth and both hands. 09/17/2023 Patient examined this morning the bedside. Patient currently denies chest pain or pressure. She denies shortness of breath. She underwent EGD yesterday afte alanis with no evidence of GI bleeding. She remains on aspirin daily. She does continue to report an intermittent bloody nose. 09/18/2023 Patient examined this morning at bedside. Patient denies any chest pain or pressure. She denies any shortness of breath. She states she has had no further episodes of epistaxis since yesterday. Hemoglobin remained stable. PHYSICAL EXAM: VITAL SIGNS: Reviewed. GENERAL: Well-developed in no acute distress. HEENT: Head is normocephalic. Pupils are equal, round. Sclerae anicteric. Mucous membranes of the mouth are moist. Neck supple. No JVD or thyromegaly LUNGS: Respirations even and unlabored. Lungs diminished bilaterally HEART: Regular rate and rhythm. S1 and S2 heard. ABDOMEN: Soft. Nondistended. Nontender. EXTREMITIES: Normal range of motion. No clubbing or cyanosis. Peripheral pulses intact. Cast to right lower extremity NEUROLOGIC: Awake and alert. ASSESSMENT: Shortness of breath Acute on chronic heart failure with recovered EF, previously 35 to 40% now 60 to 65% Acute kidney injury Coronary artery disease with recent stenting of the proximal RCA, 06/24/2023 Ischemic cardiomyopathy with recovered EF Chronic kidney disease History of renal failure requiring hemodialysis, last session 3 weeks ago Hypertension Hyperlipidemia Diabetes Severe pulmonary hypertension COPD Former nicotine dependence Status postcardiopulmonary arrest, etiology unclear, no clear-cut evidence of an acute ischemic event Bradycardia, resolved Anoxic encephalopathy, postarrest, improving Acute delirium, improving Black tarry stools, concern for GI bleeding, status post EGD revealing antral gastritis Epistaxis PLAN: Continue current cardiac medications We will resume Plavix and discontinue aspirin. No further inpatient recommendations from a cardiac standpoint. We will sign off. Please reconsult if needed. Nurse practitioner note has been reviewed by physician. Signing provider agrees with the documented findings, assessment, and plan of care documented by PATIENT RELATIONS REPRESENTATIVE as a scribe. Objective - Vital Signs Vital signs: Vital Signs Temp 97.4 F L 09/18/23 07:44 Pulse 72 09/18/23 07:44 Resp 18 09/18/23 07:44 BP 159/81 09/18/23 07:44 Pulse Ox 98 09/18/23 07:44 FiO2 3 09/02/23 04:00 Intake & Output 09/17/23 09/18/23 09/18/23 18:59 06:59 18:59 Intake Total 10 Output Total 1500 800 Balance -1500 -790 Intake: IV 10 Invasive Line 8 10 Output: Urine 1500 800 Other: Voiding Method Indwelling Catheter Indwelling Catheter # Bowel Movements 6 ABP, PAP, CO, CI - Last Documented Arterial Blood Pressure 125/73 - Labs CBC & Chem 7: 09/18/23 06:03 09/18/23 05:48 Labs: Abnormal Lab Results - Last 24 Hours (Table) 09/17/23 09/17/23 09/17/23 Range/Units 09:24 09:24 11:22 RBC 3.26 L (4.10-5.20) X 10*6/uL Hgb 9.2 L (12.0-15.0) g/dL Hct 30.3 L (37.2-46.3) % MCHC 30.4 L (32.0-37.0) g/dL RDW 16.9 H (11.5-14.5) % Immature Gran # 0.05 H (0.00-0.04) X 10*3/uL Lymphocytes # (1.0-4.8) k/uL Anion Gap 12.10 H (4.00-12.00) mmol/L Est GFR (CKD-EPI) 40 L (>=60) Glucose 159 H (70-110) mg/dL POC Glucose (mg/dL) 179 H (70-110) mg/dL Calcium 8.2 L (8.7-10.3) mg/dL Alkaline Phosphatase 220 H (41-126) U/L Albumin 3.1 L (3.8-4.9) g/dL Globulin 3.4 H (1.6-3.3) g/dL Albumin/Globulin Ratio 0.91 L (1.60-3.17) Ratio 09/17/23 09/17/23 09/18/23 Range/Units 16:16 19:53 06:03 RBC 3.16 L (4.10-5.20) X 10*6/uL Hgb 8.8 L (12.0-15.0) g/dL Hct 29.8 L (37.2-46.3) % MCHC 29.6 L (32.0-37.0) g/dL RDW 17.1 H (11.5-14.5) % Immature Gran # (0.00-0.04) X 10*3/uL Lymphocytes # 0.8 L (1.0-4.8) k/uL Anion Gap (4.00-12.00) mmol/L Est GFR (CKD-EPI) (>=60) Glucose (70-110) mg/dL POC Glucose (mg/dL) 198 H 161 H (70-110) mg/dL Calcium (8.7-10.3) mg/dL Alkaline Phosphatase (41-126) U/L Albumin (3.8-4.9) g/dL Globulin (1.6-3.3) g/dL Albumin/Globulin Ratio (1.60-3.17) Ratio
[2023-09-18 11:16] LABS: Glucose,Whole Blood 208 mg/dL (70-110)
--- NOTE | 2023-09-18 11:43 | P.PN ---
Subjective Patient is seen in follow-up for acute kidney injury. Renal function stable. On oral diuretic. Nonoliguric. Oral intake is good. Sitter at bedside. Vital signs are stable. General: Agitated and restless. HEENT: On nasal cannula. LUNGS: No audible rhonchi or wheezes. HEART: Rate and Rhythm are regular. ABDOMEN: No distention. EXTREMITITES: Trace edema. Objective - Vital Signs Vital signs: Vital Signs Temp 97.4 F L 09/18/23 07:44 Pulse 71 09/18/23 08:00 Resp 18 09/18/23 07:44 BP 159/81 09/18/23 07:44 Pulse Ox 98 09/18/23 07:44 FiO2 3 09/02/23 04:00 Intake & Output 09/17/23 09/18/23 09/18/23 18:59 06:59 18:59 Intake Total 10 Output Total 1500 800 Balance -1500 -790 Intake: IV 10 Invasive Line 8 10 Output: Urine 1500 800 Other: Voiding Method Indwelling Catheter Indwelling Catheter Indwelling Catheter # Bowel Movements 6 ABP, PAP, CO, CI - Last Documented Arterial Blood Pressure 125/73 - Labs CBC & Chem 7: 09/18/23 06:03 09/18/23 05:48 Labs: Abnormal Lab Results - Last 24 Hours (Table) 09/17/23 09/17/23 09/17/23 Range/Units 09:24 09:24 16:16 RBC 3.26 L (4.10-5.20) X 10*6/uL Hgb 9.2 L (12.0-15.0) g/dL Hct 30.3 L (37.2-46.3) % MCHC 30.4 L (32.0-37.0) g/dL RDW 16.9 H (11.5-14.5) % Immature Gran # 0.05 H (0.00-0.04) X 10*3/uL Lymphocytes # (1.0-4.8) k/uL Anion Gap 12.10 H (4.00-12.00) mmol/L BUN (9.0-27.0) mg/dL Creatinine (0.6-1.5) mg/dL Est GFR (CKD-EPI) 40 L (>=60) Glucose 159 H (70-110) mg/dL POC Glucose (mg/dL) 198 H (70-110) mg/dL Calcium 8.2 L (8.7-10.3) mg/dL Alkaline Phosphatase 220 H (41-126) U/L Albumin 3.1 L (3.8-4.9) g/dL Globulin 3.4 H (1.6-3.3) g/dL Albumin/Globulin Ratio 0.91 L (1.60-3.17) Ratio 09/17/23 09/18/23 09/18/23 Range/Units 19:53 05:48 06:03 RBC 3.16 L (4.10-5.20) X 10*6/uL Hgb 8.8 L (12.0-15.0) g/dL Hct 29.8 L (37.2-46.3) % MCHC 29.6 L (32.0-37.0) g/dL RDW 17.1 H (11.5-14.5) % Immature Gran # (0.00-0.04) X 10*3/uL Lymphocytes # 0.8 L (1.0-4.8) k/uL Anion Gap (4.00-12.00) mmol/L BUN 27.9 H (9.0-27.0) mg/dL Creatinine 1.6 H (0.6-1.5) mg/dL Est GFR (CKD-EPI) 37 L (>=60) Glucose (70-110) mg/dL POC Glucose (mg/dL) 161 H (70-110) mg/dL Calcium 7.9 L (8.7-10.3) mg/dL Alkaline Phosphatase (41-126) U/L Albumin (3.8-4.9) g/dL Globulin (1.6-3.3) g/dL Albumin/Globulin Ratio (1.60-3.17) Ratio 09/18/23 Range/Units 11:15 RBC (4.10-5.20) X 10*6/uL Hgb (12.0-15.0) g/dL Hct (37.2-46.3) % MCHC (32.0-37.0) g/dL RDW (11.5-14.5) % Immature Gran # (0.00-0.04) X 10*3/uL Lymphocytes # (1.0-4.8) k/uL Anion Gap (4.00-12.00) mmol/L BUN (9.0-27.0) mg/dL Creatinine (0.6-1.5) mg/dL Est GFR (CKD-EPI) (>=60) Glucose (70-110) mg/dL POC Glucose (mg/dL) 208 H (70-110) mg/dL Calcium (8.7-10.3) mg/dL Alkaline Phosphatase (41-126) U/L Albumin (3.8-4.9) g/dL Globulin (1.6-3.3) g/dL Albumin/Globulin Ratio (1.60-3.17) Ratio Microbiology - Last 24 Hours (Table) 09/15/23 15:46 Gram Stain - Final Catheter Site Wound Culture - Final Assessment and Plan Plan: Assessment: 1. Acute kidney injury on chronic kidney disease secondary to ATN secondary to cardiorenal syndrome and cardiac arrest. Creatinine 1.5 admission and peaked at 2.98 this admission -stable at 1.6 today. Patient was on hemodialysis in the past with last treatment being July 02, 2023. 2. Volume overload. Improved with diuresis. 3. Acute on chronic diastolic CHF. 4. Diabetes mellitus. 5. Right foot wound. 6. Coronary disease with cardiac stenting. 7. Status post PEA arrest with concern for anoxic encephalopathy. 8. Septic shock with urine culture positive for E. coli and catheter tip culture positive for Corynebacterium. On antibiotics. Off vasopressors. 9. Metabolic acidosis secondary to acute kidney injury and IV fluids. Improved. 10. Anemia. Iron deficiency noted. Status post IV iron. On Aranesp. Also received blood transfusion this admission. 11. Hypernatremia from lack of oral water intake and free water diuresis. Status post D5W. Improved. Plan: Maintain torsemide. Encouraged oral intake, including free water. Avoid nephrotoxins. Continue to monitor renal function and urine output.
--- NOTE | 2023-09-18 14:16 | P.PN ---
Subjective Progress Note Date: 09/18/23 CHIEF COMPLAINT: GI bleed HISTORY OF PRESENT ILLNESS: Patient is status post EGD revealing antral gastrit is. No further bleeding reported. Nursing staff reports stools brown. Hemoglobin stable at 8.8. Patient denies any abdominal pain. PHYSICAL EXAM: VITAL SIGNS: Reviewed. GENERAL: Well-developed in no acute distress. ABDOMEN: Soft. Nondistended. Nontender. ASSESSMENT: 1. Acute GI bleed with melanotic stools and now resolved. Status post EGD revealing antral gastritis PLAN: -Continue PPI -Continue regular diet -Patient can be discharge from surgical standpoint when medically cleared Physician Log Driver note has been reviewed by physician. Signing provider agrees with the documented findings, assessment, and plan of care. Objective - Vital Signs Vital signs: Vital Signs Temp 97.4 F L 09/18/23 07:44 Pulse 71 09/18/23 08:00 Resp 18 09/18/23 07:44 BP 159/81 09/18/23 07:44 Pulse Ox 96 09/18/23 13:24 FiO2 3 09/02/23 04:00 Intake & Output 09/17/23 09/18/23 09/18/23 18:59 06:59 18:59 Intake Total 10 Output Total 1500 800 Balance -1500 -790 Intake: IV 10 Invasive Line 8 10 Output: Urine 1500 800 Other: Voiding Method Indwelling Catheter Indwelling Catheter Indwelling Catheter # Bowel Movements 6 ABP, PAP, CO, CI - Last Documented Arterial Blood Pressure 125/73 - Labs CBC & Chem 7: 09/18/23 06:03 09/18/23 05:48 Labs: Abnormal Lab Results - Last 24 Hours (Table) 09/17/23 09/17/23 09/17/23 Range/Units 09:24 09:24 16:16 RBC 3.26 L (4.10-5.20) X 10*6/uL Hgb 9.2 L (12.0-15.0) g/dL Hct 30.3 L (37.2-46.3) % MCHC 30.4 L (32.0-37.0) g/dL RDW 16.9 H (11.5-14.5) % Immature Gran # 0.05 H (0.00-0.04) X 10*3/uL Lymphocytes # (1.0-4.8) k/uL Anion Gap 12.10 H (4.00-12.00) mmol/L BUN (9.0-27.0) mg/dL Creatinine (0.6-1.5) mg/dL Est GFR (CKD-EPI) 40 L (>=60) Glucose 159 H (70-110) mg/dL POC Glucose (mg/dL) 198 H (70-110) mg/dL Calcium 8.2 L (8.7-10.3) mg/dL Alkaline Phosphatase 220 H (41-126) U/L Albumin 3.1 L (3.8-4.9) g/dL Globulin 3.4 H (1.6-3.3) g/dL Albumin/Globulin Ratio 0.91 L (1.60-3.17) Ratio 09/17/23 09/18/23 09/18/23 Range/Units 19:53 05:48 06:03 RBC 3.16 L (4.10-5.20) X 10*6/uL Hgb 8.8 L (12.0-15.0) g/dL Hct 29.8 L (37.2-46.3) % MCHC 29.6 L (32.0-37.0) g/dL RDW 17.1 H (11.5-14.5) % Immature Gran # (0.00-0.04) X 10*3/uL Lymphocytes # 0.8 L (1.0-4.8) k/uL Anion Gap (4.00-12.00) mmol/L BUN 27.9 H (9.0-27.0) mg/dL Creatinine 1.6 H (0.6-1.5) mg/dL Est GFR (CKD-EPI) 37 L (>=60) Glucose (70-110) mg/dL POC Glucose (mg/dL) 161 H (70-110) mg/dL Calcium 7.9 L (8.7-10.3) mg/dL Alkaline Phosphatase (41-126) U/L Albumin (3.8-4.9) g/dL Globulin (1.6-3.3) g/dL Albumin/Globulin Ratio (1.60-3.17) Ratio 09/18/23 Range/Units 11:15 RBC (4.10-5.20) X 10*6/uL Hgb (12.0-15.0) g/dL Hct (37.2-46.3) % MCHC (32.0-37.0) g/dL RDW (11.5-14.5) % Immature Gran # (0.00-0.04) X 10*3/uL Lymphocytes # (1.0-4.8) k/uL Anion Gap (4.00-12.00) mmol/L BUN (9.0-27.0) mg/dL Creatinine (0.6-1.5) mg/dL Est GFR (CKD-EPI) (>=60) Glucose (70-110) mg/dL POC Glucose (mg/dL) 208 H (70-110) mg/dL Calcium (8.7-10.3) mg/dL Alkaline Phosphatase (41-126) U/L Albumin (3.8-4.9) g/dL Globulin (1.6-3.3) g/dL Albumin/Globulin Ratio (1.60-3.17) Ratio Microbiology - Last 24 Hours (Table) 09/15/23 15:46 Gram Stain - Final Catheter Site Wound Culture - Final
--- NOTE | 2023-09-18 15:48 | P.PN ---
Subjective Progress Note Date: 09/18/23 On today's evaluation of 09/16/2023, mental status is still unchanged and the patient continues to have restlessness in bed requiring a sitter at the bedside at all times. No focal neurological deficits. The patient is currently on risperidone 2 mg p.o. twice a day and the patient is also on Requip 1 mg at bedtime. No significant respiratory distress. The patient is currently on room air oxygen with a pulse ox of 90%. There is also suspicion for a GI bleed. The patient's hemoglobin is currently at 9.4 with a white cell count of 4.8. BUN is at 30 with a creatinine of 1.45 and a sodium level of 141. The patient is to undergo an EGD today regarding workup for GI bleeding. On today's evaluation of 09/17/2023, the patient seems to be calm and comfortable without any significant restlessness or agitation. She is answering questions appropriately and she seems to be quite responsive at this point in time. Noted EGD was done yesterday and there was no indication for any acute bleeding and t he patient's hemoglobin has remained stable. No fever. No chills. The white cell count today is at 5.5 with a hemoglobin 9.2 and a platelet count of 272. Electrolytes are normal. BUN is at 25 with a creatinine of 1.5 consistent with chronic kidney disease and the creatinine has been stable. LFTs are also within normal limits. Stool for C. difficile has been negative. The patient remains on risperidone 2 mg p.o. twice daily and the patient is also on Requip. No other significant events overnight. Sitter remains at the bedside. Infectious disease continues to follow-up this patient. Patient is being treated with broad-spectrum antibiotics. The patient has a chronic right heel wound in addition to an area of cellulitis at the site of the previously inserted dialysis catheter and the patient continues to be on daptomycin. 09/18/2023, patient is again restless. At times, she is still getting confused. As such, despite some limited improvement in her mentation yesterday, she is still having episodes of confusion and restlessness and she is requiring a sitter at bedside. This has prevented us from transferring care to a ECF/LTAC facility. Will consult again with neurology/psychiatry. She is on Risperdal. White cell count is 4.7 hemoglobin is 8.8 and platelet count of 245. Creatinine is stable at 1.6 and a BUN of 27. Electrolytes are all within normal limits. She is currently on 2 L with a pulse ox of 96%. No respiratory distress. Objective - Vital Signs Vital signs: Vital Signs Temp 97.4 F L 09/18/23 07:44 Pulse 71 09/18/23 08:00 Resp 18 09/18/23 07:44 BP 159/81 09/18/23 07:44 Pulse Ox 98 09/18/23 07:44 FiO2 3 09/02/23 04:00 Intake & Output 09/17/23 09/18/23 09/18/23 18:59 06:59 18:59 Intake Total 10 Output Total 1500 800 Balance -1500 -790 Intake: IV 10 Invasive Line 8 10 Output: Urine 1500 800 Other: Voiding Method Indwelling Catheter Indwelling Catheter Indwelling Catheter # Bowel Movements 6 ABP, PAP, CO, CI - Last Documented Arterial Blood Pressure 125/73 - Exam No acute distress, calm and comfortable on 2 L of oxygen by nasal cannula. Head exam was generally normal. There was no scleral icterus or corneal arcus. Mucous membranes were moist. HEENT examination is grossly unremarkable. Neck supple. Full range of motion. No adenopathy thyromegaly or neck vein distention. Cardiovascular examination reveals regular rhythm rate. S1-S2 normal. No S3 or S4. No discernible murmur noted. Heart sounds are distant. Lungs reveal scattered bilateral rhonchi. No wheezes or crackles. Breath sounds equal bilaterally. Abdomen soft without bowel sounds. Extremities are intact. No cyanosis clubbing or edema. The patient has a soft splint in her right lower extremity. Pulses are diminished at the present in all 4 extremities. Skin is without rash or lesion. Stage III nonhealing heel ulcer in the right lower extremity. Neurologic examination No focal neurological deficits. Pupils are equal reactive to light. Fluctuating mental status with restlessness and episodes of confusion. - Labs CBC & Chem 7: 09/18/23 06:03 09/18/23 05:48 Labs: Abnormal Lab Results - Last 24 Hours (Table) 09/17/23 09/17/23 09/17/23 Range/Units 09:24 09:24 11:22 RBC 3.26 L (4.10-5.20) X 10*6/uL Hgb 9.2 L (12.0-15.0) g/dL Hct 30.3 L (37.2-46.3) % MCHC 30.4 L (32.0-37.0) g/dL RDW 16.9 H (11.5-14.5) % Immature Gran # 0.05 H (0.00-0.04) X 10*3/uL Lymphocytes # (1.0-4.8) k/uL Anion Gap 12.10 H (4.00-12.00) mmol/L BUN (9.0-27.0) mg/dL Creatinine (0.6-1.5) mg/dL Est GFR (CKD-EPI) 40 L (>=60) Glucose 159 H (70-110) mg/dL POC Glucose (mg/dL) 179 H (70-110) mg/dL Calcium 8.2 L (8.7-10.3) mg/dL Alkaline Phosphatase 220 H (41-126) U/L Albumin 3.1 L (3.8-4.9) g/dL Globulin 3.4 H (1.6-3.3) g/dL Albumin/Globulin Ratio 0.91 L (1.60-3.17) Ratio 09/17/23 09/17/23 09/18/23 Range/Units 16:16 19:53 05:48 RBC (4.10-5.20) X 10*6/uL Hgb (12.0-15.0) g/dL Hct (37.2-46.3) % MCHC (32.0-37.0) g/dL RDW (11.5-14.5) % Immature Gran # (0.00-0.04) X 10*3/uL Lymphocytes # (1.0-4.8) k/uL Anion Gap (4.00-12.00) mmol/L BUN 27.9 H (9.0-27.0) mg/dL Creatinine 1.6 H (0.6-1.5) mg/dL Est GFR (CKD-EPI) 37 L (>=60) Glucose (70-110) mg/dL POC Glucose (mg/dL) 198 H 161 H (70-110) mg/dL Calcium 7.9 L (8.7-10.3) mg/dL Alkaline Phosphatase (41-126) U/L Albumin (3.8-4.9) g/dL Globulin (1.6-3.3) g/dL Albumin/Globulin Ratio (1.60-3.17) Ratio 09/18/23 Range/Units 06:03 RBC 3.16 L (4.10-5.20) X 10*6/uL Hgb 8.8 L (12.0-15.0) g/dL Hct 29.8 L (37.2-46.3) % MCHC 29.6 L (32.0-37.0) g/dL RDW 17.1 H (11.5-14.5) % Immature Gran # (0.00-0.04) X 10*3/uL Lymphocytes # 0.8 L (1.0-4.8) k/uL Anion Gap (4.00-12.00) mmol/L BUN (9.0-27.0) mg/dL Creatinine (0.6-1.5) mg/dL Est GFR (CKD-EPI) (>=60) Glucose (70-110) mg/dL POC Glucose (mg/dL) (70-110) mg/dL Calcium (8.7-10.3) mg/dL Alkaline Phosphatase (41-126) U/L Albumin (3.8-4.9) g/dL Globulin (1.6-3.3) g/dL Albumin/Globulin Ratio (1.60-3.17) Ratio Microbiology - Last 24 Hours (Table) 09/15/23 15:46 Gram Stain - Final Catheter Site Wound Culture - Final Assessment and Plan Plan: Cardiopulmonary arrest, x 2, with cardiopulmonary resuscitation, and return of spontaneous circulation on 08/23/23. Acute hypoxic respiratory failure, postcardiac arrest. The patient currently on 2 L of O2 nasal cannula S/P intubation, and mechanical ventilation, secondary to cardiopulmonary arrest, August 23, 2023. She was extubated on 08/25/23. Encephalopathy, multifactorial, suspect post anoxic encephalopathy and cardiac arrest. Currently on risperidone and Requip for ongoing restlessness and encephalopathy. Patient is currently on risperidone 2 mg p.o. twice daily. History of congestive heart failure (HFPEF) Coronary artery disease/cardiomyopathy and the patient is post non-ST segment elevation myocardial infarction. Stage III chronic kidney disease. Right heel pressure ulcer, stage III. Subacute fracture of the medial and lateral malleolus. History of hypertension. History of hyperlipidemia. History of type 2 diabetes mellitus. History of severe pulmonary hypertension. History of COPD. History of peripheral neuropathy. Chest wall pain related to CPR. Plan: Episodes of confusion and restlessness continue. Continue Risperdal. Consult again with neurology and psychiatry. Continue same medication EGD was noted and there is no evidence of any upper GI source of bleeding and it showed some mild antral gastritis and hemoglobin stable for now Monitor hemoglobin Respiratory status stable, currently on 2 L of oxygen by nasal cannula. ID to manage the antibiotics and the patient is still on daptomycin Will continue to follow
[2023-09-18 16:29] LABS: Glucose,Whole Blood 218 mg/dL (70-110)
--- NOTE | 2023-09-18 19:49 | XR ---
EXAMINATION TYPE: XR chest 1V portable DATE OF EXAM: 09/18/2023 COMPARISON: 09/14/2023 INDICATION: Short of breath TECHNIQUE: Single frontal view of the chest is obtained. FINDINGS: The heart size is prominent. The pulmonary vasculature is prominent. Small amount of retrocardiac infiltrate is likely present. Findings are improving. IMPRESSION: 1. Improving congestive heart failure. Continued follow-up is recommended. 2. Atelectasis and pneumonia may be in the retrocardiac region. Differential includes atypical pulmon shilpi edema.
[2023-09-18 20:17] LABS: Glucose,Whole Blood 186 mg/dL (70-110)
[2023-09-18] MEDS: DILTIAZEM 125 MG in SODIUM CHLORIDE 0.9% 100 ML IV SCH (20:30)
[2023-09-18 21:05] LABS: African American GFR (CKD) 47 (>60 ml/min/1.73 sqM); Anion Gap 4 mmol/L; Blood Urea Nitrogen 32 mg/dL (7-17); Calcium 7.4 mg/dL (8.4-10.2); Carbon Dioxide 27 mmol/L (22-30); Chloride 107 mmol/L (98-107); Glucose 185 mg/dL (74-99); Magnesium 1.8 mg/dL (1.6-2.3); Non-African American GFR(CKD) 41 (>60 ml/min/1.73 sqM); Potassium 3.7 mmol/L (3.5-5.1); Sodium 138 mmol/L (137-145)
[2023-09-18 21:59] LABS: Glucose,Whole Blood 185 mg/dL (70-110)
--- NOTE | 2023-09-19 04:40 | P.PN ---
Subjective Progress Note Date: 09/18/23 57-year-old female came in with complaints of shortness of breath and orthopnea found to be in congestive heart failure exacerbation patient has congestive heart failure with reduced ejection fraction in the past patient has increasing pedal edema. Patient also has an ulcer in the right foot stage III-IV which appeared to be infected we will consult wound care and infectious disease. Patient was on hemodialysis during last hospitalization her creatinine presently is 1.5 which is significantly improved patient potassium is 5.5, patient is on Entresto and Aldactone Aldactone will be held Entresto will be continued since she is receiving IV Lasix and expecting her potassium to improve if it does not improve or get worse then Entresto need to be discontinued as well. Patient has hypervolemic hyponatremia and hyperglycemia. 08/21/2023 Was evaluated today on the medical floor. Patient was continued on IV Lasix overnight however she was no longer reporting any shortness of breath and her lower extremity edema has improved. She was taken off of the Lasix at this time due to increased creatinine up to 2.31 additionally potassium remains elevated at 5.7. Echocardiogram comes back showing an improved ejection fraction of 60 to 65% because of this and also the hyperkalemia patient will not be continued on entresto. Patient was evaluated by infectious disease who felt like that heel ulcer on the right side was more likely a pressure injury stage III and is recommending local wound care to continue with Aquacel. Patient is reporting significant pain to the right foot and feels like it is fractured. Upon review of the patient's chart she did have a x-ray completed of this 12 days ago ordered by her seater grinder Dr. Mayen. Ankle x-ray did review a mildly displaced acute distal fibular fracture. Repeat x-ray of the foot and ankle completed today does reveal a subacute fractures of the medial and lateral malleolus. The lateral malleolus fracture was seen on the patient's prior exam the medial malleolus fracture may be new in the interval and this would be considered an unstable ankle fracture. There is interval 6 mm displacement of the lateral malleolus. There is a deep soft tissue ulcer at the plantar heel with no clear radiographic findings of a contagious osteomyelitis at this time. Orthooedics was consulted for this. 08/22/2023 Patient evaluated in follow-up today resting in bed. She was taken off of the Lasix remains off at this time. Bladder scan was requested and not done yesterday to rule out urinary retention, creatinine today is increased up to 2.56. Bladder scan was done require urinary straight catheterization of 550 mL taken out. Urinalysis was sent which is significantly abnormal. Patient is also noted to have multiple genital lesions which appear wartlike she admits to not having any routine gynecological screenings for many years. She is not having any vaginal bleeding or discharge. Renal ultrasound has been ordered to rule out any obstructive uropathy. 08/23/2023 Patient is evaluated today in follow-up patient had a cardiac event with cardiac arrest services executive around 445 AM with initial rhythm slowing asystole patient was started on CPR with ACS protocol patient did receive ROSC after 6 to 8 minutes and was transferred to the intensive care unit. Patient upon arrival to the intensive care unit had another episode of cardiac arrest patient had bradycardia while on pressors in the ICU patient was intubated following the first cardiac arrest and is currently on the mechanical ventilator 50% FiO2. Chest x-ray showing similar interstitial and patchy component airspace disease right greater than left. There is a possible trace left pleural effusion. A brain CT which shows no acute intracranial process. Blood work today shows a white blood cell count of 13.8, hemoglobin 9.5, sodium level of 135, BUN of 62, creatinine of 2.76. AST ALT and alk phosphatase are significantly elevated consistent with a shock liver. TSH 3.310. Urinalysis is abnormal. Her urine culture is showing gram-negative bacilli patient is covered for the urinary tract infection as well as aspiration with IV Zosyn being managed by infectious disease. Patient is currently sedated with propofol and did require vasopressor support with Levophed which has been weaned at this time. Will discontinue the gabapentin patient is continued on aspirin Plavix and statin has been placed on hold. There is concern for possible arrhythmia precipitating the asystole additionally we need to rule out embolism and a D-dimer has been ordered. 08/24/2023 Patient is seen in follow-up today continues in the ICU on mechanical ventilation. FiO2 is 50% although titrating and was just placed at 40% with a PEEP of 5. Chest x-ray today shows that the ET tube is 7 mm from the sonam suggesting a pulled back 2 cm and reassess and also suspected underlying vascular congestion. Neuro is following and per nursing staff patient is following some simple commands and undergoing sedation holidays. Patient noted to have reduced EF of 30 to 35% and cardiology had been following. Will reconsult and appreciate input and recommendations. patient did have dialysis catheter removed and sent for cultures which are pending. Infectious disease following and patient is maintained on antibiotic. D-dimer is elevated above 16 and will attempt to obtain a VQ scan.57-year-old female came in with complaints of shortness of breath and orthopnea found to be in congestive heart failure exacerbation patient has congestive heart failure with reduced ejection fraction in the past patient has increasing pedal edema. Patient also has an ulcer in the right foot stage III-IV which appeared to be infected we will consult wound care and infectious disease. Patient was on hemodialysis during last hospitalization her creatinine presently is 1.5 which is significantly improved patient potassium is 5.5, patient is on Entresto and Aldactone Aldactone will be held Entresto will be continued since she is receiving IV Lasix and expecting her potassium to improve if it does not improve or get worse then Entresto need to be discontinued as well. Patient has hypervolemic hyponatremia and hyperglycemia. 08/21/2023 Was evaluated today on the medical floor. Patient was continued on IV Lasix overnight however she was no longer reporting any shortness of breath and her lower extremity edema has improved. She was taken off of the Lasix at this time due to increased creatinine up to 2.31 additionally potassium remains elevated at 5.7. Echocardiogram comes back showing an improved ejection fraction of 60 to 65% because of this and also the hyperkalemia patient will not be continued on entresto. Patient was evaluated by infectious disease who felt like that heel ulcer on the right side was more likely a pressure injury stage III and is recommending local wound care to continue with Aquacel. Patient is reporting significant pain to the right foot and feels like it is fractured. Upon review of the patient's chart she did have a x-ray completed of this 12 days ago ordered by her seater grinder Dr. Mayen. Ankle x-ray did review a mildly displaced acute distal fibular fracture. Repeat x-ray of the foot and ankle completed today does reveal a subacute fractures of the medial and lateral malleolus. The lateral malleolus fracture was seen on the patient's prior exam the medial malleolus fracture may be new in the interval and this would be considered an unstable ankle fracture. There is interval 6 mm displacement of the lateral malleolus. There is a deep soft tissue ulcer at the plantar heel with no clear radiographic findings of a contagious osteomyelitis at this time. Orthooedics was consulted for this. 08/22/2023 Patient evaluated in follow-up today resting in bed. She was taken off of the Lasix remains off at this time. Bladder scan was requested and not done yesterday to rule out urinary retention, creatinine today is increased up to 2.56. Bladder scan was done require urinary straight catheterization of 550 mL taken out. Urinalysis was sent which is significantly abnormal. Patient is also noted to have multiple genital lesions which appear wartlike she admits to not having any routine gynecological screenings for many years. She is not having any vaginal bleeding or discharge. Renal ultrasound has been ordered to rule out any obstructive uropathy. 08/23/2023 Patient is evaluated today in follow-up patient had a cardiac event with cardiac arrest services executive around 445 AM with initial rhythm slowing asystole patient was started on CPR with ACS protocol patient did receive ROSC after 6 to 8 minutes and was transferred to the intensive care unit. Patient upon arrival to the intensive care unit had another episode of cardiac arrest patient had bradycardia while on pressors in the ICU patient was intubated following the first cardiac arrest and is currently on the mechanical ventilator 50% FiO2. Chest x-ray showing similar interstitial and patchy component airspace disease right greater than left. There is a possible trace left pleural effusion. A brain CT which shows no acute intracranial process. Blood work today shows a white blood cell count of 13.8, hemoglobin 9.5, sodium level of 135, BUN of 62, creatinine of 2.76. AST ALT and alk phosphatase are significantly elevated consistent with a shock liver. TSH 3.310. Urinalysis is abnormal. Her urine culture is showing gram-negative bacilli patient is covered for the urinary tract infection as well as aspiration with IV Zosyn being managed by infectious disease. Patient is currently sedated with propofol and did require vasopressor support with Levophed which has been weaned at this time. Will discontinue the gabapentin patient is continued on aspirin Plavix and statin has been placed on hold. There is concern for possible arrhythmia precipitating the asystole additionally we need to rule out embolism and a D-dimer has been ordered. 08/24/2023 Patient is seen in follow-up today continues in the ICU on mechanical ventil ation. FiO2 is 50% although titrating and was just placed at 40% with a PEEP of 5. Chest x-ray today shows that the ET tube is 7 mm from the sonam suggesting a pulled back 2 cm and reassess and also suspected underlying vascular congestion. Neuro is following and per nursing staff patient is following some simple commands and undergoing sedation holidays. Patient noted to have reduced EF of 30 to 35% and cardiology had been following. Will reconsult and appreciate input and recommendations. patient did have dialysis catheter removed and sent for cultures which are pending. Infectious disease following and patient is maintained on antibiotic. D-dimer is elevated above 16 and will atte mpt to obtain a VQ scan. 08/25/23 : Patient seen and evaluated at bedside, patient extubated around noon, transition to 5 L of oxygen to nasal cannula. Family at bedside, blood work reviewed hemoglobin 10.3, serum chemistry reviewed sodium 140 potassium 4.8 BUN 57 creatinine 2.49 calcium of 7. 08/26/23 : Patient seen and evaluated at bedside, patient remains in medical ICU, does complain of chest pain from CPR. Patient has been weaned off dopamine, cardiology following, blood work reviewed, hemoglobin 8.5 platelet count of 217, serum chemistry shows sodium 141 BUN 51 creatinine 2.28. Followed up by nephrology as well MARYLOU secondary to ATN continue to monitor intake and output 08/27/23: Patient seen and evaluated bedside, on evaluation patient is disoriented, patient is drowsy however likely having acute delirium. Seen by cardiology echocardiogram shows preserved ejection fraction continue with current medical management, patient on Precedex for acute delirium, continue to remain on oxygen supplementation with nasal cannula blood work reviewed CBC showed WBC 8.2 hemoglobin 8.6 serum chemistry showed creatinine of 2.22. Patient remains delirious, daughter at bedside all questions answered 08/28/2023 Patient was agitated earlier requiring Seroquel and Placed on Precedex because she was has risk to self and others Currently when I saw the patient she was sleepy However she is not tachypneic show does not look in pain. Vitals are stable She is saturating 91% on 2 L oxygen via nasal cannula She remains on Zosyn for pneumonia and UTI She is on normal saline at 50 mL/h 08/29/2023 Patient remains sleepy, she still has some encephalopathy But she is on Precedex which will be tapered off by pulmonary team today to assess her mentation as well. Patient has been followed by neurology for suspected anoxic brain injury after her cardiac arrest and return of circulation on 08/22. There is no evidence of seizure-like activity She has catheter tip infection with culture growing Corynebacterium species and she is currently covered with Zosyn which also help for her right heel pressure ulcer and aspiration pneumonia and UTI. Cardiology evaluated the patient and there is no clear evidence for her cardiac arrest although she has history of coronary artery disease and previous stents. Currently with no chest pain. She remains on aspirin and Plavix, gentle hydration, IV steroids 08/30/2023 Today her sedation remains off however patient mentation not completely resolved, it is somewhat better as she was more sleepy yesterday She is eating okay, swallowing is fine She was started on IV Lasix twice daily per higher level teaching assistant. She has good urine output and normal send discontinued She is hemodynamically stable and oxygenation is acceptable Remains on aspirin and Plavix and Seroquel 08/31/23: Seen and evaluated at bedside, patient remains on 4 L of oxygen, blood work reviewed, WBC 7.3 hemoglobin 9.1 platelet count of 203 glucose 119. CBC reviewed showed WBC 7.3 hemoglobin 9.1 platelet count of 203.. Neurology consulted and following. Patient is awake and alert able to answer questions and follow commands sister at bedside all questions answered 09/01/23: Seen and evaluated at bedside, patient vitals reviewed, serum chemistry reviewed sodium 145 potassium 4.6 creatinine 2.71, CBC reviewed patient remains on IV Zosyn , appreciate input from nephrology continue patient on IV Lasix, delirium persist 09/02/23: Patient seen and evaluated bedside, patient been admitted for cardiopulmonary arrest, respiratory failure s/p extubation on nasal cannula however continues to remain delirious. Blood work reviewed hemoglobin 8.8, platelet count 226, serum chemistry reviewed creatinine 2.55 potassium 4.5. MRI brain has been ordered which is pending, patient remains disoriented 09/03/2023 Patient is seen in follow-up status post recent extubation maintained on a few liters of pulmonary buffer chrome following closely. Cardiology following as well and adjusted medications recommending continuing with current medication regimen. No change in mentation as patient continues with periods of confusion and restlessness. Medications being adjusted and Ativan as needed has been added. Continue Seroquel. Patient will answer questions appropriately and discuss her health history and can recall her doctors names but will ramble on regarding something irrelevant during conversation. Patient is redirectable. Patient continues with partial cast noted on the lower extremity. Patient continues on IV Lasix and kidney functions are improving nephrology following closely. Plan is for patient to possibly move out of the ICU. Will have PT/OT therapy evaluate the patient and discuss further with consultations along with case management regarding possible ECF versus discharge planning. 09/04/2023 Patient seen in follow-up today and continues to have periods of confusion and restlessness. Patient continues in the ICU with multiple medical consultations following. Hemoglobin was found to be less than 7 today and will transfuse 1 unit of PRBC. Sodium 147 and recommend repeat labs as well. Nephrology is following and patient is continued on IV Lasix. MRI of the brain remains pending and neurology is following. 09/05/2023 Patient is seen and evaluated today continues to be in the ICU needs continuous reinforcement on keeping oxygen on. Patient does have a product safety technician at the bedside. Patient is currently resting although remains confused and anxious and agitated at times. Hemoglobin is stable above 7 status post 1 unit of PRBC. Patient continues on IV Lasix daily and nephrology following closely. Patient to continue on IV antibiotics with infectious disease following. 09/06/2023 Patient seen in follow-up today continues to be sleepy at this time although when awake patient is extremely restless and agitated requiring sitter at the bedside. Adjustments to medications being made and Risperdal is being increased and will continue with Seroquel. Ativan as needed. Patient's hemoglobin is stable with no active bleeding noted. Neurology following as patient continues to be unable to obtain an MRI and will have a repeat EEG as well as CT brain per neurology. Patient is afebrile and is continued on antibiotics with infectious disease following. 09/09/2023 Patient seen in follow-up today has been transitioned out of the ICU and curren tly on selective unit and continues with product safety technician at the bedside. Patient is keeping her oxygen on currently and is on 4 L. Multiple medical consultations following and per nursing staff patient was able to get up and work with physical therapy today. Plan is for ECF when patient's mentation is improved. Patient continues on IV Lasix twice daily as well with nephrology following. Continue Ativan as needed and patient is also maintained on Risperdal twice daily. Patient is afebrile with no reports of chest pain or shortness of breath. Hemoglobin is stable at 9.8 and white count is normal and kidney functions are improving. Continue monitoring Accu-Cheks before meals and at bedtime and will continue with sliding scale. Neurology following and patient is scheduled to undergo repeat brain CT today. Chest x-ray continues to show pulmonary vascular congestion. 09/10/2023 Patient is seen in follow-up today and mentation is much improved with family sitting at the bedside. Patient is able to have conversation and reports she is going home although patient has significant weakness and will be requiring ECF on discharge. Case management following awaiting for ECF evaluation and will require insurance authorization. Patient is afebrile and has been on IV antibiotics in the form of Zosyn with infectious disease following and white count remains normal and patient will be monitored off antibiotic therapy. Patient also continues on IV Lasix twice daily along with treatments and continued supplemental oxygen. Patient is on 4 L via nasal cannula. 09/11/2023 Patient is seen in follow-up this morning continues to display periods of confusion with increased agitation and restlessness. Per nursing staff patient had reports of hallucinating and seeing things crawling in the room that were not there. Patient is extremely anxious today although continues to be more mikaela ke. Patient reports is eating without much of an appetite. Patient has been compliant with working with physical therapy and will require ECF on discharge. Patient continues with product safety technician as patient is impulsive and attempts to get up out of the bed impulsively. Will ask for psychiatry to reevaluate and adjust medications. Will discontinue Dilaudid as the hallucinations appeared shortly after receiving this medication. Patient does elicit pain in the right leg and foot. 09/12/2023 Patient is seen in follow-up today and continues with confusion and requiring a sitter for safety. Patient has been working with physical therapy and reports she is doing well and ready to go home although she will require ECF for continued strength and mobility. Patient is extremely impulsive and restless at times. Asking psychiatry to reevaluate and will adjust medications. Family also working on obtaining guardianship as patient is not making sound decisions for herself medically. Family report they also cannot take her home and take care of her as they are elderly. Patient is afebrile with no reported chest pain or shortness of breath. Patient continues on 4 L and continues to remove her oxygen frequently. Patient is maintained on IV Lasix and being transition to daily. Continue monitoring kidney functions and nephrology is following. Being monitored off antibiotic therapy 09/13/2023 Patient is seen in follow-up this morning continues with a sitter at the bedside. Per nursing staff patient had a large black bowel movement and was incontinent. Occult Was positive and stat repeat hemoglobin was obtained and actually improved from previous at 9.5. Patient is maintained on aspirin, Plavix, and heparin and will hold for now. No GI available and will consult general surgery for evaluation of possible GI bleed. Contents do not appear to be melanotic on exam although dark stools are noted. Multiple other consultations following as well as psychiatry who reevaluated and adjusted medications. Mentation is improved today and less anxious and agitated and per nursing staff more appropriate today. Will continue current regimen and also continue LINSEED OIL PRESS TENDER and narcotic agents. 09/14/2023 Patient is evaluated in follow-up with sister at the bedside as well as family. General surgery is planning for an upper endoscopy on Saturday with no further reports of any black or bloody stool. Aspirin Plavix and heparin remain on hold. Patient was seen in follow-up by psychiatry for now continues on Prolixin as needed, olanzapine as needed. Patient is maintained on risperidone twice a day scheduled. Patient's mentation she is currently alert x 1-0 she is hallucinating and appears delirious. Continues on IV Lasix 40 mg every 12 hours. Continues on IV daptomycin. Continues in the cast to the right lower extremity. Bun is 32, creatinine is 1.57, magnesium 1.7. White blood cell count 5.1. 09/15/2023 Patient evaluated today with product safety technician at the bedside. Patient has no further episodes of bloody stool and is scheduled to undergo an endoscopy on Saturday. Patient is more awake alert today and is more appropriate although she continues to have hallucinations. Patient continues on IV daptomycin with concerns for lower extremity cellulitis. No significant complaints today. 09/16/2023 Patient is seen in follow-up continues with confusion and sitter at the bedside. Patient is n.p.o. currently and scheduled to undergo EGD today with general surgery. Hemoglobin is stable and 9.4 with no active bleeding other than nosebleed. Patient is maintained on Afrin as needed. Patient continues on room air and weaning as tolerated. 91% on room air with pulmonary following. Case management/social work following as well with plans on attempting to have patient go to ECF for significant weakness. Patient continues with sitter at this time making it difficult for placement although patient continues to be somewhat confused and restless and impulsive. Patient is afebrile with no reports of chest pain or shortness of breath. Patient currently n.p.o. and diet will be resumed once cleared by surgery. Kidney functions improving and patient remains on IV Lasix with nephrology following. 09/17/2023 Patient seen and evaluated in follow-up this morning and mood is appropriate, less anxious and restless and responding more appropriately to questions and com mands. Patient does have a sitter for safety at the bedside and if mentation continues to improve need to consider having sitter removed. Patient with significant weakness and prolonged hospitalization will need ECF on discharge. Parents are working on guardianship to help with patient's overall medical care. Patient maintained on IV Lasix showing improvements with nephrology following and will be switching to torsemide. Follow-up on repeat labs and replace electrolytes per protocol. Hemoglobin is stable above 9 with no active bleeding noted. Patient is status post EGD showing antral gastritis. Patient continues to have incontinence with multiple bowel movements although no dark stools or bleeding noted. Cardiology following recommending resuming Plavix when bleeding is stable. Patient continues to have intermittent nosebleeds and has been placed on humidification as patient continues on 4 L via nasal cannula. Patient found multiple times on exam on room air with no oxygen. Recommend to wean FiO2 as tolerated and documented evaluate oxygen saturations while on room air. Recommend PT/OT therapy daily. 09/18/2023 Patient is seen in follow-up today and patient continues to be confused and extremely anxious. As needed medications being used and patient is maintained on risperdol and remains extremely anxious. Patient was noted to have elevated heart rate with some shortness of breath on exam maintained on 4 L via nasal cannula. Will obtain a chest x-ray and also discussed with cardiology. Patient denies any chest pain or shortness of breath although is dyspneic while talking on exam. Patient is afebrile and maintained on daptomycin with infectious disease following awaiting cultures on the catheter site from the previous dialysis port. Kidney functions remained stable with nephrology following and will continue current regimen. Patient has been transition to torsemide daily. Hemoglobin remained stable with no active bleeding noted. Encouraged oral intake and supervision with meals. Encouraged the patient to sit upright along with nursing staff as patient is found to be laying flat on exam each day. Patient is restless and squirms around in the bed all day making it difficult to maintain proper positioning. Review of systems: Constitutional: No reports of fatigue, fever, or chills, reports feeling extremely anxious Cardiovascular: No reports of chest pain or palpitations Respiratory: No reports of shortness of breath or cough GI: No reports of nausea, vomiting, reports having multiple bowel movements that are loose : No reports of dysuria or retention Neurovascular: reports of generalized weakness although patient reports would like to go home All medications have been reviewed PHYSICAL EXAMINATION: GENERAL: The patient is on nasal cannula, awake alert and oriented x 2, much more anxious today, elderly appearing, unkempt, ill-appearing HEENT: Pupils are round and equally reacting to light. EOMI. CARDIOVASCULAR: S1 and S2 muffled PULMONARY: Decreased breath sounds bilaterally with some scattered rhonchi noted ABDOMEN: Soft, nontender, nondistended, normoactive bowel sounds. No palpable organomegaly. MUSCULOSKELETAL: No joint swelling or deformity. EXTREMITIES: Right lower extremity bandage with partial cast noted NEUROLOGICAL: pupils reactive, extremely anxious and confused today SKIN: Patient has right plantar surface ulcer on the posterior foot stage III-IV with areas of necrotic tissue. Casting and Tam wrap noted of the right lower extremity Assessment: Asystole/cardiopulmonary arrest x 2 with CPR/ROSC, unknown etiology Respiratory failure requiring intubation s/p extubation 08/25/2023 Concerns for chest wall cellulitis near the previous dialysis site, continued on daptomycin with ID following Large black stools, concern for GI bleed, ruled out, EGD showed antral gastritis Acute metabolic encephalopathy with concerns of anoxia, status postcardiac arrest Congestive heart failure with systolic dysfunction acute on chronic exacerbation Acute hypoxic respiratory failure secondary to CHF Ischemic cardiomyopathy with improved EF Acute kidney injury secondary to ATN on chronic kidney disease stage III Urinary tract infection with E. coli Subacute fracture of the medial and lateral malleolus, orthopedics following with no plans of immediate surgical intervention at this time Right heel stage III pressure injury continue local wound care with aquacel ID following. Genital lesions, will need pest control pilot follow up outpatient for routine screenings Hypertension Hyperlipidemia Type 2 diabetes mellitus uncontrolled hgb a1c 12.1 Severe pulmonary hypertension COPD without any acute exacerbation Peripheral neuropathy GI prophylaxis DVT prophylaxis Full code Plan: Patient being followed by multiple medical consultation as well as product safety technician at the bedside. Patient extremely anxious and confused today and restless on exam. Will have neurology and psychiatry reevaluate the patient and appreciate input and recommendations. Wean FiO2 as tolerated and patient is maintained on 4 L with oxygen saturations of 91%. Patient has been weaning FiO2 as tolerated and continues to take tubing off. Patient being followed by nephrology with stable kidney functions and making urine. Patient does have indwelling [place] catheter and will consider removing. Patient being transition to torsemide per nephrology Patient's heart rate noted to be elevated, chest x-ray ordered as patient was slightly dyspneic on exam discussed with nursing staff about making cardiology aware of the elevated heart rate. Recommend EKG Patient will need reevaluation with PT/OT therapy for continued weakness and prolonged hospitalization as patient will most likely require ECF. Family feels unsafe to take care of her and care for her at home. They are currently working on guardianship as patient is not deemed capable of making sound medical decisions for herself. Mentation continues to wax and wane each day and is extremely anxious today. All [employer] and narcotic agents being held and patient was reevaluated by psychiatry with adjustments to medications and will continue current regimen. Continue product safety technician at this time as patient is known to be very impulsive and attempts to get out of the bed very frequently Patient's hemoglobin remains above 9 with no active bleeding noted. Patient evaluated by general surgery and underwent EGD showing antral gastritis with no active bleeding noted. Patient continues with nosebleeds likely secondary to dryness from continued oxygen use. Continue with Afrin as needed Infectious disease following and patient has been placed back on IV antibiotics with concerns of previous dialysis site chest wall cellulitis.. Patient continued on daptomycin. Patient remains afebrile and white count is within normal limits. Repeat CT of the brain is negative for acute process. Neurology following and patient has been unable to receive an MRI given patient's continued restlessness and anxiety Overall prognosis is guarded It will be extremely difficult to have the patient placed in an AFC/ECF due to waxing and waning of mentation and agitation. Need to remove the sitter although unable to as patient remains impulsive and is high risk for falling. Again will have neurology and psychiatry reevaluate The impression and plan of care has been dictated by Mouna Rowley, Nurse Practitioner as directed. Dr. Rciardo MD I have performed a history and examination and MDM of this patient, discussed the same with the dictator, and agree with the dictator's assessment and plan as written ,documented as a scribe. Based on total visit time, I have performed more than 50% of the visit. Objective - Vital Signs Vital signs: Vital Signs Temp 97.4 F L 09/18/23 07:44 Pulse 71 09/18/23 08:00 Resp 18 09/18/23 07:44 BP 159/81 09/18/23 07:44 Pulse Ox 98 09/18/23 07:44 FiO2 3 09/02/23 04:00 Intake & Output 09/17/23 09/18/23 09/18/23 18:59 06:59 18:59 Intake Total 10 Output Total 1500 800 Balance -1500 -790 Intake: IV 10 Invasive Line 8 10 Output: Urine 1500 800 Other: Voiding Method Indwelling Catheter Indwelling Catheter Indwelling Catheter # Bowel Movements 6 ABP, PAP, CO, CI - Last Documented Arterial Blood Pressure 125/73 - Labs CBC & Chem 7: 09/18/23 06:03 09/18/23 20:39 Labs: Abnormal Lab Results - Last 24 Hours (Table) 09/17/23 09/17/23 09/17/23 Range/Units 09:24 09:24 11:22 RBC 3.26 L (4.10-5.20) X 10*6/uL Hgb 9.2 L (12.0-15.0) g/dL Hct 30.3 L (37.2-46.3) % MCHC 30.4 L (32.0-37.0) g/dL RDW 16.9 H (11.5-14.5) % Immature Gran # 0.05 H (0.00-0.04) X 10*3/uL Lymphocytes # (1.0-4.8) k/uL Anion Gap 12.10 H (4.00-12.00) mmol/L BUN (9.0-27.0) mg/dL Creatinine (0.6-1.5) mg/dL Est GFR (CKD-EPI) 40 L (>=60) Glucose 159 H (70-110) mg/dL POC Glucose (mg/dL) 179 H (70-110) mg/dL Calcium 8.2 L (8.7-10.3) mg/dL Alkaline Phosphatase 220 H (41-126) U/L Albumin 3.1 L (3.8-4.9) g/dL Globulin 3.4 H (1.6-3.3) g/dL Albumin/Globulin Ratio 0.91 L (1.60-3.17) Ratio 09/17/23 09/17/23 09/18/23 Range/Units 16:16 19:53 05:48 RBC (4.10-5.20) X 10*6/uL Hgb (12.0-15.0) g/dL Hct (37.2-46.3) % MCHC (32.0-37.0) g/dL RDW (11.5-14.5) % Immature Gran # (0.00-0.04) X 10*3/uL Lymphocytes # (1.0-4.8) k/uL Anion Gap (4.00-12.00) mmol/L BUN 27.9 H (9.0-27.0) mg/dL Creatinine 1.6 H (0.6-1.5) mg/dL Est GFR (CKD-EPI) 37 L (>=60) Glucose (70-110) mg/dL POC Glucose (mg/dL) 198 H 161 H (70-110) mg/dL Calcium 7.9 L (8.7-10.3) mg/dL Alkaline Phosphatase (41-126) U/L Albumin (3.8-4.9) g/dL Globulin (1.6-3.3) g/dL Albumin/Globulin Ratio (1.60-3.17) Ratio 09/18/23 Range/Units 06:03 RBC 3.16 L (4.10-5.20) X 10*6/uL Hgb 8.8 L (12.0-15.0) g/dL Hct 29.8 L (37.2-46.3) % MCHC 29.6 L (32.0-37.0) g/dL RDW 17.1 H (11.5-14.5) % Immature Gran # (0.00-0.04) X 10*3/uL Lymphocytes # 0.8 L (1.0-4.8) k/uL Anion Gap (4.00-12.00) mmol/L BUN (9.0-27.0) mg/dL Creatinine (0.6-1.5) mg/dL Est GFR (CKD-EPI) (>=60) Glucose (70-110) mg/dL POC Glucose (mg/dL) (70-110) mg/dL Calcium (8.7-10.3) mg/dL Alkaline Phosphatase (41-126) U/L Albumin (3.8-4.9) g/dL Globulin (1.6-3.3) g/dL Albumin/Globulin Ratio (1.60-3.17) Ratio Microbiology - Last 24 Hours (Table) 09/15/23 15:46 Gram Stain - Final Catheter Site Wound Culture - Final
[2023-09-19 06:17] LABS: Glucose,Whole Blood 198 mg/dL (70-110)
[2023-09-19] MEDS: CLOPIDOGREL 75 MG TAB PO SCH (09:27)
[2023-09-19 11:01] LABS: Anisocytosis Slight; Basophils # (A) 0.1 k/uL (0-0.2); Basophils % (A) 2 %; Eosinophils # (A) 0.2 k/uL (0-0.7); Eosinophils % (A) 5 %; HCT 30.4 % (34.0-46.0); Hypochromasia Marked; Lymphocytes # (A) 0.9 k/uL (1.0-4.8); Lymphocytes % (A) 20 %; MCH 28.1 pg (25.0-35.0); MCHC 29.5 g/dL (31.0-37.0); MCV 95.4 fL (80.0-100.0); Mean Platelet Volume 8.7; Monocytes # (A) 0.5 k/uL (0-1.0); Monocytes % (A) 11 %; Neutrophils # (A) 2.8 k/uL (1.3-7.7); Neutrophils % (A) 59 %; Platelet Count 227 k/uL (150-450); Poikilocytosis Slight; RBC 3.19 m/uL (3.80-5.40); RDW 16.7 % (11.5-15.5); WBC 4.7 k/uL (3.8-10.6)
[2023-09-19 11:16] LABS: Sodium 140 mmol/L (137-145)
[2023-09-19 11:17] LABS: Glucose,Whole Blood 102 mg/dL (70-110)
[2023-09-19 11:17] LABS: African American GFR (CKD) 50 (>60 ml/min/1.73 sqM); Anion Gap 3 mmol/L; Blood Urea Nitrogen 31 mg/dL (7-17); Calcium 7.8 mg/dL (8.4-10.2); Carbon Dioxide 29 mmol/L (22-30); Chloride 108 mmol/L (98-107); Glucose 99 mg/dL (74-99); Non-African American GFR(CKD) 43 (>60 ml/min/1.73 sqM); Potassium 4.1 mmol/L (3.5-5.1)
--- NOTE | 2023-09-19 12:07 | P.PN ---
Subjective Patient is seen in follow-up for acute kidney injury. Renal function stable. On oral diuretic. Nonoliguric. Oral intake is good. Sitter at bedside. Vital signs are stable. General: Agitated and restless. HEENT: On nasal cannula. LUNGS: No audible rhonchi or wheezes. HEART: Rate and Rhythm are regular. ABDOMEN: No distention. EXTREMITITES: Trace edema. Objective - Vital Signs Vital signs: Vital Signs Temp 95.6 F L 09/19/23 08:00 Pulse 53 L 09/19/23 08:00 Resp 20 09/19/23 08:00 BP 128/63 09/19/23 08:00 Pulse Ox 95 09/19/23 08:00 FiO2 3 09/02/23 04:00 Intake & Output 09/18/23 09/19/23 09/19/23 18:59 06:59 18:59 Intake Total 26.167 120 Output Total 650 200 Balance -650 -173.833 120 Intake: Intake, IV Titration 26.167 Amount Diltiazem 125 mg In 26.167 Sodium Chloride 0.9% 100 ml @ 10 MG/HR 10 mls/hr IV .[id number] [facility] Rx#: [id number] Oral 120 Output: Urine 650 200 Other: Voiding Method Indwelling Catheter Indwelling Catheter Indwelling Catheter ABP, PAP, CO, CI - Last Documented Arterial Blood Pressure 125/73 - Labs CBC & Chem 7: 09/19/23 08:39 09/19/23 08:39 Labs: Abnormal Lab Results - Last 24 Hours (Table) 09/18/23 09/18/23 09/18/23 Range/Units 16:28 20:13 20:39 RBC (3.80-5.40) m/uL Hgb (11.4-16.0) gm/dL Hct (34.0-46.0) % MCHC (31.0-37.0) g/dL RDW (11.5-15.5) % Lymphocytes # (1.0-4.8) k/uL Chloride (98-107) mmol/L BUN 32 H (7-17) mg/dL Creatinine 1.40 H (0.52-1.04) mg/dL Glucose 185 H (74-99) mg/dL POC Glucose (mg/dL) 218 H 186 H (70-110) mg/dL Calcium 7.4 L (8.4-10.2) mg/dL 09/18/23 09/19/23 09/19/23 Range/Units 21:57 06:15 08:39 RBC 3.19 L (3.80-5.40) m/uL Hgb 9.0 L (11.4-16.0) gm/dL Hct 30.4 L (34.0-46.0) % MCHC 29.5 L (31.0-37.0) g/dL RDW 16.7 H (11.5-15.5) % Lymphocytes # 0.9 L (1.0-4.8) k/uL Chloride (98-107) mmol/L BUN (7-17) mg/dL Creatinine (0.52-1.04) mg/dL Glucose (74-99) mg/dL POC Glucose (mg/dL) 185 H 198 H (70-110) mg/dL Calcium (8.4-10.2) mg/dL 09/19/23 Range/Units 08:39 RBC (3.80-5.40) m/uL Hgb (11.4-16.0) gm/dL Hct (34.0-46.0) % MCHC (31.0-37.0) g/dL RDW (11.5-15.5) % Lymphocytes # (1.0-4.8) k/uL Chloride 108 H (98-107) mmol/L BUN 31 H (7-17) mg/dL Creatinine 1.35 H (0.52-1.04) mg/dL Glucose (74-99) mg/dL POC Glucose (mg/dL) (70-110) mg/dL Calcium 7.8 L (8.4-10.2) mg/dL Microbiology - Last 24 Hours (Table) 09/15/23 15:46 Gram Stain - Final Catheter Site Wound Culture - Final Assessment and Plan Plan: Assessment: 1. Acute kidney injury on chronic kidney disease secondary to ATN secondary to cardiorenal syndrome and cardiac arrest. Renal function stable. Creatinine 1.35 today. Patient was on hemodialysis in the past with last treatment being July 02, 2023. 2. Volume overload. Improved with diuresis. 3. Acute on chronic diastolic CHF. 4. Diabetes mellitus. 5. Right foot wound. 6. Coronary disease with cardiac stenting. 7. Status post PEA arrest with concern for anoxic encephalopathy. 8. Septic shock with urine culture positive for E. coli and catheter tip culture positive for Corynebacterium. On antibiotics. Off vasopressors. 9. Metabolic acidosis secondary to acute kidney injury and IV fluids. Improved. 10. Anemia. Iron deficiency noted. Status post IV iron. On Aranesp. Also received blood transfusion this admission. 11. Hypernatremia from lack of oral water intake and free water diuresis. Status post D5W. Improved. Plan: Maintain torsemide. Encouraged oral intake, including free water. Avoid nephrotoxins. Continue to monitor renal function and urine output.
--- NOTE | 2023-09-19 12:39 | P.PN ---
Subjective Progress Note Date: 09/19/23 patient [place] well. She sews no sign of GI bleed.her EGD yesterday showed some mild antral gastritis. Objective - Vital Signs Vital signs: Vital Signs Temp 95.6 F L 09/19/23 08:00 Pulse 53 L 09/19/23 08:00 Resp 20 09/19/23 08:00 BP 128/63 09/19/23 08:00 Pulse Ox 95 09/19/23 08:00 FiO2 3 09/02/23 04:00 Intake & Output 09/18/23 09/19/23 09/19/23 18:59 06:59 18:59 Intake Total 26.167 120 Output Total 650 200 Balance -650 -173.833 120 Intake: Intake, IV Titration 26.167 Amount Diltiazem 125 mg In 26.167 Sodium Chloride 0.9% 100 ml @ 10 MG/HR 10 mls/hr IV .[id number] [facility] Rx#: [id number] Oral 120 Output: Urine 650 200 Other: Voiding Method Indwelling Catheter Indwelling Catheter Indwelling Catheter ABP, PAP, CO, CI - Last Documented Arterial Blood Pressure 125/73 - Labs CBC & Chem 7: 09/19/23 08:39 09/19/23 08:39 Labs: Abnormal Lab Results - Last 24 Hours (Table) 09/18/23 09/18/23 09/18/23 Range/Units 16:28 20:13 20:39 RBC (3.80-5.40) m/uL Hgb (11.4-16.0) gm/dL Hct (34.0-46.0) % MCHC (31.0-37.0) g/dL RDW (11.5-15.5) % Lymphocytes # (1.0-4.8) k/uL Chloride (98-107) mmol/L BUN 32 H (7-17) mg/dL Creatinine 1.40 H (0.52-1.04) mg/dL Glucose 185 H (74-99) mg/dL POC Glucose (mg/dL) 218 H 186 H (70-110) mg/dL Calcium 7.4 L (8.4-10.2) mg/dL 09/18/23 09/19/23 09/19/23 Range/Units 21:57 06:15 08:39 RBC 3.19 L (3.80-5.40) m/uL Hgb 9.0 L (11.4-16.0) gm/dL Hct 30.4 L (34.0-46.0) % MCHC 29.5 L (31.0-37.0) g/dL RDW 16.7 H (11.5-15.5) % Lymphocytes # 0.9 L (1.0-4.8) k/uL Chloride (98-107) mmol/L BUN (7-17) mg/dL Creatinine (0.52-1.04) mg/dL Glucose (74-99) mg/dL POC Glucose (mg/dL) 185 H 198 H (70-110) mg/dL Calcium (8.4-10.2) mg/dL 09/19/23 Range/Units 08:39 RBC (3.80-5.40) m/uL Hgb (11.4-16.0) gm/dL Hct (34.0-46.0) % MCHC (31.0-37.0) g/dL RDW (11.5-15.5) % Lymphocytes # (1.0-4.8) k/uL Chloride 108 H (98-107) mmol/L BUN 31 H (7-17) mg/dL Creatinine 1.35 H (0.52-1.04) mg/dL Glucose (74-99) mg/dL POC Glucose (mg/dL) (70-110) mg/dL Calcium 7.8 L (8.4-10.2) mg/dL Microbiology - Last 24 Hours (Table) 09/15/23 15:46 Gram Stain - Final Catheter Site Wound Culture - Final Assessment and Plan Plan: resolved GI bleed. Patiently discharged home per the medical service.
--- NOTE | 2023-09-19 13:55 | P.PN ---
Subjective Progress Note Date: 09/19/23 On today's evaluation of 09/16/2023, mental status is still unchanged and the patient continues to have restlessness in bed requiring a sitter at the bedside at all times. No focal neurological deficits. The patient is currently on risperidone 2 mg p.o. twice a day and the patient is also on Requip 1 mg at bedtime. No significant respiratory distress. The patient is currently on room air oxygen with a pulse ox of 90%. There is also suspicion for a GI bleed. The patient's hemoglobin is currently at 9.4 with a white cell count of 4.8. BUN is at 30 with a creatinine of 1.45 and a sodium level of 141. The patient is to undergo an EGD today regarding workup for GI bleeding. On today's evaluation of 09/17/2023, the patient seems to be calm and comfortable without any significant restlessness or agitation. She is answering questions appropriately and she seems to be quite responsive at this point in time. Noted EGD was done yesterday and there was no indication for any acute bleeding and t he patient's hemoglobin has remained stable. No fever. No chills. The white cell count today is at 5.5 with a hemoglobin 9.2 and a platelet count of 272. Electrolytes are normal. BUN is at 25 with a creatinine of 1.5 consistent with chronic kidney disease and the creatinine has been stable. LFTs are also within normal limits. Stool for C. difficile has been negative. The patient remains on risperidone 2 mg p.o. twice daily and the patient is also on Requip. No other significant events overnight. Sitter remains at the bedside. Infectious disease continues to follow-up this patient. Patient is being treated with broad-spectrum antibiotics. The patient has a chronic right heel wound in addition to an area of cellulitis at the site of the previously inserted dialysis catheter and the patient continues to be on daptomycin. 09/18/2023, patient is again restless. At times, she is still getting confused. As such, despite some limited improvement in her mentation yesterday, she is still having episodes of confusion and restlessness and she is requiring a sitter at bedside. This has prevented us from transferring care to a ECF/LTAC facility. Will consult again with neurology/psychiatry. She is on Risperdal. White cell count is 4.7 hemoglobin is 8.8 and platelet count of 245. Creatinine is stable at 1.6 and a BUN of 27. Electrolytes are all within normal limits. She is currently on 2 L with a pulse ox of 96%. No respiratory distress. On 09/19/2023, the patient is being seen for a follow-up. No major change in condition. This morning she is comfortable and quiet and the sister at the bedside. Labs were reviewed. Creatinine stable at 1.35 with a sodium level of 140. White cell count is 4.7 with a hemoglobin of 9. No new complaints. Medication remains unchanged. Remains on aspirin 2 mg twice a day and Requip for increased restlessness. Remains on daptomycin. Remains on torsemide 20 mg p.o. daily. The heart rate is under better control. The patient is currently on metoprolol 12.5 mg p.o. twice a day. She is off the Cardizem drip. She remains on Plavix. Objective - Vital Signs Vital signs: Vital Signs Temp 97.8 F 09/19/23 03:45 Pulse 56 L 09/19/23 03:45 Resp 20 09/19/23 03:45 BP 140/65 09/19/23 03:45 Pulse Ox 94 L 09/19/23 03:45 FiO2 3 09/02/23 04:00 Intake & Output 09/18/23 09/19/23 09/19/23 18:59 06:59 18:59 Intake Total 26.167 120 Output Total 650 200 Balance -650 -173.833 120 Intake: Intake, IV Titration 26.167 Amount Diltiazem 125 mg In 26.167 Sodium Chloride 0.9% 100 ml @ 10 MG/HR 10 mls/hr IV .[id number] [facility] Rx#: [id number] Oral 120 Output: Urine 650 200 Other: Voiding Method Indwelling Catheter Indwelling Catheter ABP, PAP, CO, CI - Last Documented Arterial Blood Pressure 125/73 - Exam No acute distress, calm and comfortable on 2 L of oxygen by nasal cannula. Head exam was generally normal. There was no scleral icterus or corneal arcus. Mucous membranes were moist. HEENT examination is grossly unremarkable. Neck supple. Full range of motion. No adenopathy thyromegaly or neck vein distention. Cardiovascular examination reveals regular rhythm rate. S1-S2 normal. No S3 or S4. No discernible murmur noted. Heart sounds are distant. Lungs reveal scattered bilateral rhonchi. No wheezes or crackles. Breath sounds equal bilaterally. Abdomen soft without bowel sounds. Extremities are intact. No cyanosis clubbing or edema. The patient has a soft splint in her right lower extremity. Pulses are diminished at the present in all 4 extremities. Skin is without rash or lesion. Stage III nonhealing heel ulcer in the right lower extremity. Neurologic examination No focal neurological deficits. Pupils are equal reactive to light. Fluctuating mental status with restlessness and episodes of confusion. - Labs CBC & Chem 7: 09/19/23 08:39 09/19/23 08:39 Labs: Abnormal Lab Results - Last 24 Hours (Table) 09/18/23 09/18/23 09/18/23 Range/Units 11:15 16:28 20:13 BUN (7-17) mg/dL Creatinine (0.52-1.04) mg/dL Glucose (74-99) mg/dL POC Glucose (mg/dL) 208 H 218 H 186 H (70-110) mg/dL Calcium (8.4-10.2) mg/dL 09/18/23 09/18/23 09/19/23 Range/Units 20:39 21:57 06:15 BUN 32 H (7-17) mg/dL Creatinine 1.40 H (0.52-1.04) mg/dL Glucose 185 H (74-99) mg/dL POC Glucose (mg/dL) 185 H 198 H (70-110) mg/dL Calcium 7.4 L (8.4-10.2) mg/dL Microbiology - Last 24 Hours (Table) 09/15/23 15:46 Gram Stain - Final Catheter Site Wound Culture - Final Assessment and Plan Plan: Cardiopulmonary arrest, x 2, with cardiopulmonary resuscitation, and return of spontaneous circulation on 08/23/23. Acute hypoxic respiratory failure, postcardiac arrest. The patient currently on 3 L of O2 nasal cannula, S/P intubation, and mechanical ventilation, secondary to cardiopulmonary arrest, August 23, 2023. She was extubated on 08/25/23. Encephalopathy, multifactorial, suspect post anoxic encephalopathy and cardiac arrest. Currently on risperidone and Requip for ongoing restlessness and encephalopathy. Patient is currently on risperidone 2 mg p.o. twice daily. History of congestive heart failure (HFPEF) Coronary artery disease/cardiomyopathy and the patient is post non-ST segment elevation myocardial infarction. Stage III chronic kidney disease. Right heel pressure ulcer, stage III. Subacute fracture of the medial and lateral malleolus. History of hypertension. History of hyperlipidemia. History of type 2 diabetes mellitus. History of severe pulmonary hypertension. History of COPD. History of peripheral neuropathy. Chest wall pain related to CPR. Plan: Continue risperidone Continue Requip Continue same medication EGD was noted and there is no evidence of any upper GI source of bleeding and it showed some mild antral gastritis and hemoglobin stable for now Monitor hemoglobin Respiratory status stable, currently on 3 L of oxygen by nasal cannula. ID to manage the antibiotics and the patient is still on daptomycin Will continue to follow
[2023-09-19 16:18] LABS: Glucose,Whole Blood 173 mg/dL (70-110)
--- NOTE | 2023-09-19 16:22 | P.PN ---
Subjective Progress Note Date: 09/18/23 Principal diagnosis: Reason for follow-up is right heel diabetic foot ulcer Patient is a 57-year-old female with a past medical history significant for diabetes mellitus hypertension hyperlipidemia history of renal insufficiency requiring dialysis currently not on dialysis and the patient also have a chronic nonhealing wound to the right heel area, present to the hospital with increasing shortness of breath and swelling concerning for fluid overload.Patient did have a cardiac arrest around 4 AM 08/23/2023 with the patient went into asystole got resuscitated intubated and transferred to the ICU subsequently have another cardiac arrest with PEA rhythm not resuscitated. On today's evaluation that is 09/18/2023, Patient is afebrile patient is currently on 3 L nasal cannula oxygen and denies having any shortness of breath, the patient denies any chest pain or cough, the patient denies any nausea vomiting did not have any abdominal pain and no diarrhea has been reported. Patient white count is 4.7, creatinine 1.40 Objective - Vital Signs Vital signs: Vital Signs Temp 97.4 F L 09/18/23 07:44 Pulse 71 09/18/23 08:00 Resp 18 09/18/23 07:44 BP 159/81 09/18/23 07:44 Pulse Ox 96 09/18/23 13:24 FiO2 3 09/02/23 04:00 Intake & Output 09/17/23 09/18/23 09/18/23 18:59 06:59 18:59 Intake Total 10 Output Total 1500 800 Balance -1500 -790 Intake: IV 10 Invasive Line 8 10 Output: Urine 1500 800 Other: Voiding Method Indwelling Catheter Indwelling Catheter Indwelling Catheter # Bowel Movements 6 ABP, PAP, CO, CI - Last Documented Arterial Blood Pressure 125/73 - Exam GENERAL DESCRIPTION: Middle-aged female lying in bed in no distress RESPIRATORY SYSTEM: Unlabored breathing , decreased breath sounds at bases HEART: S1 S2 regular rate and rhythm , ABDOMEN: Soft , no tenderness EXTREMITIES: Right heel wound is currently dressed no drainage - Labs CBC & Chem 7: 09/19/23 08:39 09/19/23 08:39 Labs: Abnormal Lab Results - Last 24 Hours (Table) 09/17/23 09/17/23 09/17/23 Range/Units 09:24 09:24 16:16 RBC 3.26 L (4.10-5.20) X 10*6/uL Hgb 9.2 L (12.0-15.0) g/dL Hct 30.3 L (37.2-46.3) % MCHC 30.4 L (32.0-37.0) g/dL RDW 16.9 H (11.5-14.5) % Immature Gran # 0.05 H (0.00-0.04) X 10*3/uL Lymphocytes # (1.0-4.8) k/uL Anion Gap 12.10 H (4.00-12.00) mmol/L BUN (9.0-27.0) mg/dL Creatinine (0.6-1.5) mg/dL Est GFR (CKD-EPI) 40 L (>=60) Glucose 159 H (70-110) mg/dL POC Glucose (mg/dL) 198 H (70-110) mg/dL Calcium 8.2 L (8.7-10.3) mg/dL Alkaline Phosphatase 220 H (41-126) U/L Albumin 3.1 L (3.8-4.9) g/dL Globulin 3.4 H (1.6-3.3) g/dL Albumin/Globulin Ratio 0.91 L (1.60-3.17) Ratio 09/17/23 09/18/23 09/18/23 Range/Units 19:53 05:48 06:03 RBC 3.16 L (4.10-5.20) X 10*6/uL Hgb 8.8 L (12.0-15.0) g/dL Hct 29.8 L (37.2-46.3) % MCHC 29.6 L (32.0-37.0) g/dL RDW 17.1 H (11.5-14.5) % Immature Gran # (0.00-0.04) X 10*3/uL Lymphocytes # 0.8 L (1.0-4.8) k/uL Anion Gap (4.00-12.00) mmol/L BUN 27.9 H (9.0-27.0) mg/dL Creatinine 1.6 H (0.6-1.5) mg/dL Est GFR (CKD-EPI) 37 L (>=60) Glucose (70-110) mg/dL POC Glucose (mg/dL) 161 H (70-110) mg/dL Calcium 7.9 L (8.7-10.3) mg/dL Alkaline Phosphatase (41-126) U/L Albumin (3.8-4.9) g/dL Globulin (1.6-3.3) g/dL Albumin/Globulin Ratio (1.60-3.17) Ratio 09/18/23 Range/Units 11:15 RBC (4.10-5.20) X 10*6/uL Hgb (12.0-15.0) g/dL Hct (37.2-46.3) % MCHC (32.0-37.0) g/dL RDW (11.5-14.5) % Immature Gran # (0.00-0.04) X 10*3/uL Lymphocytes # (1.0-4.8) k/uL Anion Gap (4.00-12.00) mmol/L BUN (9.0-27.0) mg/dL Creatinine (0.6-1.5) mg/dL Est GFR (CKD-EPI) (>=60) Glucose (70-110) mg/dL POC Glucose (mg/dL) 208 H (70-110) mg/dL Calcium (8.7-10.3) mg/dL Alkaline Phosphatase (41-126) U/L Albumin (3.8-4.9) g/dL Globulin (1.6-3.3) g/dL Albumin/Globulin Ratio (1.60-3.17) Ratio Microbiology - Last 24 Hours (Table) 09/15/23 15:46 Gram Stain - Final Catheter Site Wound Culture - Final Assessment and Plan (1) Pressure ulcer of right heel, stage 3 Current Visit: No Status: Acute Code(s): L89.613 - PRESSURE ULCER OF RIGHT HEEL, STAGE 3 SNOMED Code(s): 86797145989924 (2) Type 2 diabetes mellitus with foot ulcer Current Visit: No Status: Acute Code(s): E11.621 - TYPE 2 DIABETES MELLITUS WITH FOOT ULCER; L97.509 - NON-PRESSURE CHRONIC ULCER OTH PRT UNSP FOOT W UNSP SEVERITY SNOMED Code(s): 665260999 (3) UTI (urinary tract infection) Current Visit: Yes Status: Acute Code(s): N39.0 - URINARY TRACT INFECTION, SITE NOT SPECIFIED SNOMED Code(s): 86420594 (4) Aspiration pneumonia Current Visit: Yes Status: Acute Code(s): J69.0 - PNEUMONITIS DUE TO INHALATION OF FOOD AND VOMIT SNOMED Code(s): 095349176 Plan: 1patient with chronic nonhealing wound to the right heel area which has been there for a couple of months now patient overall wound base looks clean with no slough tissue in the wound base, patient to continue local wound care with Aq uacel silver dressing change every 48 hours 2-patient did have cellulitis to the left chest wall site of previous dialysis catheter insertion and some purulent drainage reported by nursing staff patient is currently covered with daptomycin to continue 3-diarrhea, stool for C. difficile is negative patient to continue with symptomatic treatment Dictation was produced using [employer] dictation software. please excuse any grammatical, word or spelling errors. Time with Patient: Less than 30
--- NOTE | 2023-09-19 16:24 | P.PN ---
Subjective Progress Note Date: 09/19/23 Principal diagnosis: Reason for follow-up is right heel diabetic foot ulcer Patient is a 57-year-old female with a past medical history significant for diabetes mellitus hypertension hyperlipidemia history of renal insufficiency requiring dialysis currently not on dialysis and the patient also have a chronic nonhealing wound to the right heel area, present to the hospital with increasing shortness of breath and swelling concerning for fluid overload.Patient did have a cardiac arrest around 4 AM 08/23/2023 with the patient went into asystole got resuscitated intubated and transferred to the ICU subsequently have another cardiac arrest with PEA rhythm not resuscitated. On today's evaluation that is 09/19/2023, patient has been afebrile, patient is breathing comfortably and is currently on 3 L nasal cannula oxygen, patient denies having any significant cough no chest pain shortness of breath, patient denies nausea vomiting or diarrhea and no abdominal pain, patient denies pain to the right chest wall or any drainage Patient white count is 4.7 creatinine is 1.35 Objective - Vital Signs Vital signs: Vital Signs Temp 95.6 F L 09/19/23 08:00 Pulse 76 09/19/23 12:00 Resp 18 09/19/23 12:00 BP 145/80 09/19/23 12:00 Pulse Ox 94 L 09/19/23 12:00 FiO2 3 09/02/23 04:00 Intake & Output 09/18/23 09/19/23 09/19/23 18:59 06:59 18:59 Intake Total 26.167 120 Output Total 650 200 Balance -650 -173.833 120 Weight 53 kg Intake: Intake, IV Titration 26.167 Amount Diltiazem 125 mg In 26.167 Sodium Chloride 0.9% 100 ml @ 10 MG/HR 10 mls/hr IV .[id number] [facility] Rx#: [id number] Oral 120 Output: Urine 650 200 Other: Voiding Method Indwelling Catheter Indwelling Catheter Indwelling Catheter ABP, PAP, CO, CI - Last Documented Arterial Blood Pressure 125/73 - Exam GENERAL DESCRIPTION: Middle-aged female lying in bed in no distress RESPIRATORY SYSTEM: Unlabored breathing , decreased breath sounds at bases HEART: S1 S2 regular rate and rhythm , ABDOMEN: Soft , no tenderness EXTREMITIES: Right heel wound is currently dressed no drainage - Labs CBC & Chem 7: 09/19/23 08:39 09/19/23 08:39 Labs: Abnormal Lab Results - Last 24 Hours (Table) 09/18/23 09/18/23 09/18/23 Range/Units 16:28 20:13 20:39 RBC (3.80-5.40) m/uL Hgb (11.4-16.0) gm/dL Hct (34.0-46.0) % MCHC (31.0-37.0) g/dL RDW (11.5-15.5) % Lymphocytes # (1.0-4.8) k/uL Chloride (98-107) mmol/L BUN 32 H (7-17) mg/dL Creatinine 1.40 H (0.52-1.04) mg/dL Glucose 185 H (74-99) mg/dL POC Glucose (mg/dL) 218 H 186 H (70-110) mg/dL Calcium 7.4 L (8.4-10.2) mg/dL 09/18/23 09/19/23 09/19/23 Range/Units 21:57 06:15 08:39 RBC 3.19 L (3.80-5.40) m/uL Hgb 9.0 L (11.4-16.0) gm/dL Hct 30.4 L (34.0-46.0) % MCHC 29.5 L (31.0-37.0) g/dL RDW 16.7 H (11.5-15.5) % Lymphocytes # 0.9 L (1.0-4.8) k/uL Chloride (98-107) mmol/L BUN (7-17) mg/dL Creatinine (0.52-1.04) mg/dL Glucose (74-99) mg/dL POC Glucose (mg/dL) 185 H 198 H (70-110) mg/dL Calcium (8.4-10.2) mg/dL 09/19/23 Range/Units 08:39 RBC (3.80-5.40) m/uL Hgb (11.4-16.0) gm/dL Hct (34.0-46.0) % MCHC (31.0-37.0) g/dL RDW (11.5-15.5) % Lymphocytes # (1.0-4.8) k/uL Chloride 108 H (98-107) mmol/L BUN 31 H (7-17) mg/dL Creatinine 1.35 H (0.52-1.04) mg/dL Glucose (74-99) mg/dL POC Glucose (mg/dL) (70-110) mg/dL Calcium 7.8 L (8.4-10.2) mg/dL Assessment and Plan (1) Pressure ulcer of right heel, stage 3 Current Visit: No Status: Acute Code(s): L89.613 - PRESSURE ULCER OF RIGHT HEEL, STAGE 3 SNOMED Code(s): 31135828207612 (2) Type 2 diabetes mellitus with foot ulcer Current Visit: No Status: Acute Code(s): E11.621 - TYPE 2 DIABETES MELLITUS WITH FOOT ULCER; L97.509 - NON-PRESSURE CHRONIC ULCER OTH PRT UNSP FOOT W UNSP SEVERITY SNOMED Code(s): 479085581 (3) UTI (urinary tract infection) Current Visit: Yes Status: Acute Code(s): N39.0 - URINARY TRACT INFECTION, SITE NOT SPECIFIED SNOMED Code(s): 46896237 (4) Aspiration pneumonia Current Visit: Yes Status: Acute Code(s): J69.0 - PNEUMONITIS DUE TO INHALATION OF FOOD AND VOMIT SNOMED Code(s): 418962781 Plan: 1patient with chronic nonhealing wound to the right heel area which has been there for a couple of months now patient overall wound base looks clean with no slough tissue in the wound base, patient to continue local wound care with Aquacel silver dressing change every 48 hours 2-patient did have cellulitis to the left chest wall site of previous dialysis catheter insertion and some purulent drainage reported by nursing staff, overall redness to the right chest wall has improved, there is no drainage patient will continue with daptomycin while inpatient Dictation was produced using [employer] dictation software. please excuse any grammatical, word or spelling errors. Time with Patient: Less than 30
--- NOTE | 2023-09-19 17:02 | P.PN ---
Subjective Progress Note Date: 09/19/23 I am resuming neurological care. Please refer to Dr. Elmore's notes for further details. Objective - Vital Signs Vital signs: Vital Signs Temp 95.6 F L 09/19/23 08:00 Pulse 74 09/19/23 16:00 Resp 18 09/19/23 16:00 BP 159/85 09/19/23 16:00 Pulse Ox 98 09/19/23 16:00 FiO2 3 09/02/23 04:00 Intake & Output 09/18/23 09/19/23 09/19/23 18:59 06:59 18:59 Intake Total 26.167 120 Output Total 650 200 Balance -650 -173.833 120 Weight 53 kg Intake: Intake, IV Titration 26.167 Amount Diltiazem 125 mg In 26.167 Sodium Chloride 0.9% 100 ml @ 10 MG/HR 10 mls/hr IV .[id number] [facility] Rx#: [id number] Oral 120 Output: Urine 650 200 Other: Voiding Method Indwelling Catheter Indwelling Catheter Indwelling Catheter ABP, PAP, CO, CI - Last Documented Arterial Blood Pressure 125/73 - Exam General: Lying in bed and is not in acute distress. Neuro: Patient is oriented to self, time. She did not know where she was. She correctly name pen and watch. She is following simple commands. She seems more responsive today to two weeks ago I saw her. No facial weakness. Is moving bilateral uppers above gravity. Has cast on right lower and moves the left lower extremity above gravity. Some of the work-up during this hospital visit consisted of: Is hypotensive. It seems she is hypotensive as low as 60's/40 today in paper coater. Initial wbc is 9.2K and currently is 13.8K Today troponin is 1.010 and on presentation was normal. AST is 468 and ALT is 286 and on presentation was normal. Creatnine is trending up on this admission. glucose is normal. Repeat U/a appear positive acute UTi. TSH: 2.31 Ammonia [address] head is reported as not acute intracranial process. I personally reviewed CT and agree with report. 2D echo: It is reported as increased right vent systolic function. Routine EEG: Is abnormal. The background slowing is suggestive of severe encephalopathy. There is no focal slowing, epileptiform discharges or seizure on the EEG. Recent labs 03/2023 Vitamin B12: 813 RBC folate 926 - Labs CBC & Chem 7: 09/19/23 08:39 09/19/23 08:39 Labs: Abnormal Lab Results - Last 24 Hours (Table) 09/18/23 09/18/23 09/18/23 Range/Units 20:13 20:39 21:57 RBC (3.80-5.40) m/uL Hgb (11.4-16.0) gm/dL Hct (34.0-46.0) % MCHC (31.0-37.0) g/dL RDW (11.5-15.5) % Lymphocytes # (1.0-4.8) k/uL Chloride (98-107) mmol/L BUN 32 H (7-17) mg/dL Creatinine 1.40 H (0.52-1.04) mg/dL Glucose 185 H (74-99) mg/dL POC Glucose (mg/dL) 186 H 185 H (70-110) mg/dL Calcium 7.4 L (8.4-10.2) mg/dL 09/19/23 09/19/23 09/19/23 Range/Units 06:15 08:39 08:39 RBC 3.19 L (3.80-5.40) m/uL Hgb 9.0 L (11.4-16.0) gm/dL Hct 30.4 L (34.0-46.0) % MCHC 29.5 L (31.0-37.0) g/dL RDW 16.7 H (11.5-15.5) % Lymphocytes # 0.9 L (1.0-4.8) k/uL Chloride 108 H (98-107) mmol/L BUN 31 H (7-17) mg/dL Creatinine 1.35 H (0.52-1.04) mg/dL Glucose (74-99) mg/dL POC Glucose (mg/dL) 198 H (70-110) mg/dL Calcium 7.8 L (8.4-10.2) mg/dL 09/19/23 Range/Units 16:14 RBC (3.80-5.40) m/uL Hgb (11.4-16.0) gm/dL Hct (34.0-46.0) % MCHC (31.0-37.0) g/dL RDW (11.5-15.5) % Lymphocytes # (1.0-4.8) k/uL Chloride (98-107) mmol/L BUN (7-17) mg/dL Creatinine (0.52-1.04) mg/dL Glucose (74-99) mg/dL POC Glucose (mg/dL) 173 H (70-110) mg/dL Calcium (8.4-10.2) mg/dL Assessment and Plan Assessment: This is a 57 y/o woman with significant cardiac issues who was admitted on 08/19/2023 for right heel wound. Patient had a cardiac arrest x 2 on 08/23/2023, with the first downtime of about 6 to 8 minutes. The second 1 lasted about 6 minutes per nurse. It seems the patient was bradycardiac then had asystole then on second had PEA. Patient was subsequently hypotensive and had elevated troponin. Cardiopumonary arrest X2 with ROSC. Possible cardiac especially with significant cardiac history. Patient continues to be delirious/encephalopathic. Suspect related to hypoxic/anoxic encephalopathy from cardiac arrest. Mood lability, fluctuating mental status, perhaps from delirium, perhaps result from ?cardiac arrest. Has positive FOBT and has anemia. Had EGD which showed antral gastritis. Status post extubation 08/26/2023. Elevated troponin Acute UTI Elevated LFT CKI Hx of ischemic cardiomyopathy Hx of congestive heart failure Hx of severe pulmonary HTN Ongoing DM and recent HBA1c is 12.1 Hx Peripheral neuropathy Hx of HTN Hx of hyperlipidemia Plan: Repeat EEG #3 performed 09/09/2023 was borderline abnormal due to minimal background slowing, suggestive of mild encephalopathy. EEG was technically limited due to frequent myogenic/movement artifact involving the left temporal region. No focal or generalized epileptiform activity was seen. When compared to the EEG from 08/29/2023, the background has remarkably improved. Repeat EEG #2 performed 08/29/2023 was abnormal due to background slowing of mild to moderate degree. This is suggestive of generalized cerebral dysfunction as can be seen with toxic metabolic encephalopathy or related to diffuse structural brain abnormality. Clinical correlation recommended. No epileptiform activity was seen. When compared to the initial EEG from 08/23/2023, the background has remarkably improved. Repeat CT head 08/28/2023 showed no acute intracranial process. Not able to have MRI brain because of mentation. Psychiatry has seen the patient. Patient now on Seroquel 200 mg at bedtime. Also started on Prolixin 5 mg p.o. or IM every 6 hours as needed agitation. Patient will be continued on ASA, Plavix and Lipitor [address] Elmore. Has positive FOBT and has anemia and it seems patient is off ASA. Cardiology is on board I.D. is on board. Patient currently on Zosyn. Neprhology is on board DVT prophylaxis: Heparin 5000 units subcu every 12 hours. Will defer the rest of medical management to primary team and other specialists. Will follow-up with patient sporadically. Time with Patient: Less than 30
[2023-09-19 19:46] LABS: Glucose,Whole Blood 183 mg/dL (70-110)
--- NOTE | 2023-09-20 03:07 | P.PN ---
Subjective Progress Note Date: 09/19/23 57-year-old female came in with complaints of shortness of breath and orthopnea found to be in congestive heart failure exacerbation patient has congestive heart failure with reduced ejection fraction in the past patient has increasing pedal edema. Patient also has an ulcer in the right foot stage III-IV which appeared to be infected we will consult wound care and infectious disease. Patient was on hemodialysis during last hospitalization her creatinine presently is 1.5 which is significantly improved patient potassium is 5.5, patient is on Entresto and Aldactone Aldactone will be held Entresto will be continued since she is receiving IV Lasix and expecting her potassium to improve if it does not improve or get worse then Entresto need to be discontinued as well. Patient has hypervolemic hyponatremia and hyperglycemia. 08/21/2023 Was evaluated today on the medical floor. Patient was continued on IV Lasix overnight however she was no longer reporting any shortness of breath and her lower extremity edema has improved. She was taken off of the Lasix at this time due to increased creatinine up to 2.31 additionally potassium remains elevated at 5.7. Echocardiogram comes back showing an improved ejection fraction of 60 to 65% because of this and also the hyperkalemia patient will not be continued on entresto. Patient was evaluated by infectious disease who felt like that heel ulcer on the right side was more likely a pressure injury stage III and is recommending local wound care to continue with Aquacel. Patient is reporting significant pain to the right foot and feels like it is fractured. Upon review of the patient's chart she did have a x-ray completed of this 12 days ago ordered by her digital pre press operator Dr. Mayen. Ankle x-ray did review a mildly displaced acute distal fibular fracture. Repeat x-ray of the foot and ankle completed today does reveal a subacute fractures of the medial and lateral malleolus. The lateral malleolus fracture was seen on the patient's prior exam the medial malleolus fracture may be new in the interval and this would be considered an unstable ankle fracture. There is interval 6 mm displacement of the lateral malleolus. There is a deep soft tissue ulcer at the plantar heel with no clear radiographic findings of a contagious osteomyelitis at this time. Orthooedics was consulted for this. 08/22/2023 Patient evaluated in follow-up today resting in bed. She was taken off of the Lasix remains off at this time. Bladder scan was requested and not done yesterday to rule out urinary retention, creatinine today is increased up to 2.56. Bladder scan was done require urinary straight catheterization of 550 mL taken out. Urinalysis was sent which is significantly abnormal. Patient is also noted to have multiple genital lesions which appear wartlike she admits to not having any routine gynecological screenings for many years. She is not having any vaginal bleeding or discharge. Renal ultrasound has been ordered to rule out any obstructive uropathy. 08/23/2023 Patient is evaluated today in follow-up patient had a cardiac event with cardiac arrest researcher around 445 AM with initial rhythm slowing asystole patient was started on CPR with ACS protocol patient did receive ROSC after 6 to 8 minutes and was transferred to the intensive care unit. Patient upon arrival to the intensive care unit had another episode of cardiac arrest patient had bradycardia while on pressors in the ICU patient was intubated following the first cardiac arrest and is currently on the mechanical ventilator 50% FiO2. Chest x-ray showing similar interstitial and patchy component airspace disease right greater than left. There is a possible trace left pleural effusion. A brain CT which shows no acute intracranial process. Blood work today shows a white blood cell count of 13.8, hemoglobin 9.5, sodium level of 135, BUN of 62, creatinine of 2.76. AST ALT and alk phosphatase are significantly elevated consistent with a shock liver. TSH 3.310. Urinalysis is abnormal. Her urine culture is showing gram-negative bacilli patient is covered for the urinary tract infection as well as aspiration with IV Zosyn being managed by infectious disease. Patient is currently sedated with propofol and did require vasopressor support with Levophed which has been weaned at this time. Will discontinue the gabapentin patient is continued on aspirin Plavix and statin has been placed on hold. There is concern for possible arrhythmia precipitating the asystole additionally we need to rule out embolism and a D-dimer has been ordered. 08/24/2023 Patient is seen in follow-up today continues in the ICU on mechanical ventilation. FiO2 is 50% although titrating and was just placed at 40% with a PEEP of 5. Chest x-ray today shows that the ET tube is 7 mm from the sonam suggesting a pulled back 2 cm and reassess and also suspected underlying vascular congestion. Neuro is following and per nursing staff patient is following some simple commands and undergoing sedation holidays. Patient noted to have reduced EF of 30 to 35% and cardiology had been following. Will reconsult and appreciate input and recommendations. patient did have dialysis catheter removed and sent for cultures which are pending. Infectious disease following and patient is maintained on antibiotic. D-dimer is elevated above 16 and will attempt to obtain a VQ scan.57-year-old female came in with complaints of shortness of breath and orthopnea found to be in congestive heart failure exacerbation patient has congestive heart failure with reduced ejection fraction in the past patient has increasing pedal edema. Patient also has an ulcer in the right foot stage III-IV which appeared to be infected we will consult wound care and infectious disease. Patient was on hemodialysis during last hospitalization her creatinine presently is 1.5 which is significantly improved patient potassium is 5.5, patient is on Entresto and Aldactone Aldactone will be held Entresto will be continued since she is receiving IV Lasix and expecting her potassium to improve if it does not improve or get worse then Entresto need to be discontinued as well. Patient has hypervolemic hyponatremia and hyperglycemia. 08/21/2023 Was evaluated today on the medical floor. Patient was continued on IV Lasix overnight however she was no longer reporting any shortness of breath and her lower extremity edema has improved. She was taken off of the Lasix at this time due to increased creatinine up to 2.31 additionally potassium remains elevated at 5.7. Echocardiogram comes back showing an improved ejection fraction of 60 to 65% because of this and also the hyperkalemia patient will not be continued on entresto. Patient was evaluated by infectious disease who felt like that heel ulcer on the right side was more likely a pressure injury stage III and is recommending local wound care to continue with Aquacel. Patient is reporting significant pain to the right foot and feels like it is fractured. Upon review of the patient's chart she did have a x-ray completed of this 12 days ago ordered by her digital pre press operator Dr. Mayen. Ankle x-ray did review a mildly displaced acute distal fibular fracture. Repeat x-ray of the foot and ankle completed today does reveal a subacute fractures of the medial and lateral malleolus. The lateral malleolus fracture was seen on the patient's prior exam the medial malleolus fracture may be new in the interval and this would be considered an unstable ankle fracture. There is interval 6 mm displacement of the lateral malleolus. There is a deep soft tissue ulcer at the plantar heel with no clear radiographic findings of a contagious osteomyelitis at this time. Orthooedics was consulted for this. 08/22/2023 Patient evaluated in follow-up today resting in bed. She was taken off of the Lasix remains off at this time. Bladder scan was requested and not done yesterday to rule out urinary retention, creatinine today is increased up to 2.56. Bladder scan was done require urinary straight catheterization of 550 mL taken out. Urinalysis was sent which is significantly abnormal. Patient is also noted to have multiple genital lesions which appear wartlike she admits to not having any routine gynecological screenings for many years. She is not having any vaginal bleeding or discharge. Renal ultrasound has been ordered to rule out any obstructive uropathy. 08/23/2023 Patient is evaluated today in follow-up patient had a cardiac event with cardiac arrest researcher around 445 AM with initial rhythm slowing asystole patient was started on CPR with ACS protocol patient did receive ROSC after 6 to 8 minutes and was transferred to the intensive care unit. Patient upon arrival to the intensive care unit had another episode of cardiac arrest patient had bradycardia while on pressors in the ICU patient was intubated following the first cardiac arrest and is currently on the mechanical ventilator 50% FiO2. Chest x-ray showing similar interstitial and patchy component airspace disease right greater than left. There is a possible trace left pleural effusion. A brain CT which shows no acute intracranial process. Blood work today shows a white blood cell count of 13.8, hemoglobin 9.5, sodium level of 135, BUN of 62, creatinine of 2.76. AST ALT and alk phosphatase are significantly elevated consistent with a shock liver. TSH 3.310. Urinalysis is abnormal. Her urine culture is showing gram-negative bacilli patient is covered for the urinary tract infection as well as aspiration with IV Zosyn being managed by infectious disease. Patient is currently sedated with propofol and did require vasopressor support with Levophed which has been weaned at this time. Will discontinue the gabapentin patient is continued on aspirin Plavix and statin has been placed on hold. There is concern for possible arrhythmia precipitating the asystole additionally we need to rule out embolism and a D-dimer has been ordered. 08/24/2023 Patient is seen in follow-up today continues in the ICU on mechanical ventil ation. FiO2 is 50% although titrating and was just placed at 40% with a PEEP of 5. Chest x-ray today shows that the ET tube is 7 mm from the sonam suggesting a pulled back 2 cm and reassess and also suspected underlying vascular congestion. Neuro is following and per nursing staff patient is following some simple commands and undergoing sedation holidays. Patient noted to have reduced EF of 30 to 35% and cardiology had been following. Will reconsult and appreciate input and recommendations. patient did have dialysis catheter removed and sent for cultures which are pending. Infectious disease following and patient is maintained on antibiotic. D-dimer is elevated above 16 and will atte mpt to obtain a VQ scan. 08/25/23 : Patient seen and evaluated at bedside, patient extubated around noon, transition to 5 L of oxygen to nasal cannula. Family at bedside, blood work reviewed hemoglobin 10.3, serum chemistry reviewed sodium 140 potassium 4.8 BUN 57 creatinine 2.49 calcium of 7. 08/26/23 : Patient seen and evaluated at bedside, patient remains in medical ICU, does complain of chest pain from CPR. Patient has been weaned off dopamine, cardiology following, blood work reviewed, hemoglobin 8.5 platelet count of 217, serum chemistry shows sodium 141 BUN 51 creatinine 2.28. Followed up by nephrology as well MARYLOU secondary to ATN continue to monitor intake and output 08/27/23: Patient seen and evaluated bedside, on evaluation patient is disoriented, patient is drowsy however likely having acute delirium. Seen by cardiology echocardiogram shows preserved ejection fraction continue with current medical management, patient on Precedex for acute delirium, continue to remain on oxygen supplementation with nasal cannula blood work reviewed CBC showed WBC 8.2 hemoglobin 8.6 serum chemistry showed creatinine of 2.22. Patient remains delirious, daughter at bedside all questions answered 08/28/2023 Patient was agitated earlier requiring Seroquel and Placed on Precedex because she was has risk to self and others Currently when I saw the patient she was sleepy However she is not tachypneic show does not look in pain. Vitals are stable She is saturating 91% on 2 L oxygen via nasal cannula She remains on Zosyn for pneumonia and UTI She is on normal saline at 50 mL/h 08/29/2023 Patient remains sleepy, she still has some encephalopathy But she is on Precedex which will be tapered off by pulmonary team today to assess her mentation as well. Patient has been followed by neurology for suspected anoxic brain injury after her cardiac arrest and return of circulation on 08/22. There is no evidence of seizure-like activity She has catheter tip infection with culture growing Corynebacterium species and she is currently covered with Zosyn which also help for her right heel pressure ulcer and aspiration pneumonia and UTI. Cardiology evaluated the patient and there is no clear evidence for her cardiac arrest although she has history of coronary artery disease and previous stents. Currently with no chest pain. She remains on aspirin and Plavix, gentle hydration, IV steroids 08/30/2023 Today her sedation remains off however patient mentation not completely resolved, it is somewhat better as she was more sleepy yesterday She is eating okay, swallowing is fine She was started on IV Lasix twice daily per filling hauler. She has good urine output and normal send discontinued She is hemodynamically stable and oxygenation is acceptable Remains on aspirin and Plavix and Seroquel 08/31/23: Seen and evaluated at bedside, patient remains on 4 L of oxygen, blood work reviewed, WBC 7.3 hemoglobin 9.1 platelet count of 203 glucose 119. CBC reviewed showed WBC 7.3 hemoglobin 9.1 platelet count of 203.. Neurology consulted and following. Patient is awake and alert able to answer questions and follow commands sister at bedside all questions answered 09/01/23: Seen and evaluated at bedside, patient vitals reviewed, serum chemistry reviewed sodium 145 potassium 4.6 creatinine 2.71, CBC reviewed patient remains on IV Zosyn , appreciate input from nephrology continue patient on IV Lasix, delirium persist 09/02/23: Patient seen and evaluated bedside, patient been admitted for cardiopulmonary arrest, respiratory failure s/p extubation on nasal cannula however continues to remain delirious. Blood work reviewed hemoglobin 8.8, platelet count 226, serum chemistry reviewed creatinine 2.55 potassium 4.5. MRI brain has been ordered which is pending, patient remains disoriented 09/03/2023 Patient is seen in follow-up status post recent extubation maintained on a few liters of pulmonary pediatric physical therapist following closely. Cardiology following as well and adjusted medications recommending continuing with current medication regimen. No change in mentation as patient continues with periods of confusion and restlessness. Medications being adjusted and Ativan as needed has been added. Continue Seroquel. Patient will answer questions appropriately and discuss her health history and can recall her doctors names but will ramble on regarding something irrelevant during conversation. Patient is redirectable. Patient continues with partial cast noted on the lower extremity. Patient continues on IV Lasix and kidney functions are improving nephrology following closely. Plan is for patient to possibly move out of the ICU. Will have PT/OT therapy evaluate the patient and discuss further with consultations along with case management regarding possible ECF versus discharge planning. 09/04/2023 Patient seen in follow-up today and continues to have periods of confusion and restlessness. Patient continues in the ICU with multiple medical consultations following. Hemoglobin was found to be less than 7 today and will transfuse 1 unit of PRBC. Sodium 147 and recommend repeat labs as well. Nephrology is following and patient is continued on IV Lasix. MRI of the brain remains pending and neurology is following. 09/05/2023 Patient is seen and evaluated today continues to be in the ICU needs continuous reinforcement on keeping oxygen on. Patient does have a health and safety inspector at the bedside. Patient is currently resting although remains confused and anxious and agitated at times. Hemoglobin is stable above 7 status post 1 unit of PRBC. Patient continues on IV Lasix daily and nephrology following closely. Patient to continue on IV antibiotics with infectious disease following. 09/06/2023 Patient seen in follow-up today continues to be sleepy at this time although when awake patient is extremely restless and agitated requiring sitter at the bedside. Adjustments to medications being made and Risperdal is being increased and will continue with Seroquel. Ativan as needed. Patient's hemoglobin is stable with no active bleeding noted. Neurology following as patient continues to be unable to obtain an MRI and will have a repeat EEG as well as CT brain per neurology. Patient is afebrile and is continued on antibiotics with infectious disease following. 09/09/2023 Patient seen in follow-up today has been transitioned out of the ICU and curren tly on selective unit and continues with health and safety inspector at the bedside. Patient is keeping her oxygen on currently and is on 4 L. Multiple medical consultations following and per nursing staff patient was able to get up and work with physical therapy today. Plan is for ECF when patient's mentation is improved. Patient continues on IV Lasix twice daily as well with nephrology following. Continue Ativan as needed and patient is also maintained on Risperdal twice daily. Patient is afebrile with no reports of chest pain or shortness of breath. Hemoglobin is stable at 9.8 and white count is normal and kidney functions are improving. Continue monitoring Accu-Cheks before meals and at bedtime and will continue with sliding scale. Neurology following and patient is scheduled to undergo repeat brain CT today. Chest x-ray continues to show pulmonary vascular congestion. 09/10/2023 Patient is seen in follow-up today and mentation is much improved with family sitting at the bedside. Patient is able to have conversation and reports she is going home although patient has significant weakness and will be requiring ECF on discharge. Case management following awaiting for ECF evaluation and will require insurance authorization. Patient is afebrile and has been on IV antibiotics in the form of Zosyn with infectious disease following and white count remains normal and patient will be monitored off antibiotic therapy. Patient also continues on IV Lasix twice daily along with treatments and continued supplemental oxygen. Patient is on 4 L via nasal cannula. 09/11/2023 Patient is seen in follow-up this morning continues to display periods of confusion with increased agitation and restlessness. Per nursing staff patient had reports of hallucinating and seeing things crawling in the room that were not there. Patient is extremely anxious today although continues to be more mikaela ke. Patient reports is eating without much of an appetite. Patient has been compliant with working with physical therapy and will require ECF on discharge. Patient continues with health and safety inspector as patient is impulsive and attempts to get up out of the bed impulsively. Will ask for psychiatry to reevaluate and adjust medications. Will discontinue Dilaudid as the hallucinations appeared shortly after receiving this medication. Patient does elicit pain in the right leg and foot. 09/12/2023 Patient is seen in follow-up today and continues with confusion and requiring a sitter for safety. Patient has been working with physical therapy and reports she is doing well and ready to go home although she will require ECF for continued strength and mobility. Patient is extremely impulsive and restless at times. Asking psychiatry to reevaluate and will adjust medications. Family also working on obtaining guardianship as patient is not making sound decisions for herself medically. Family report they also cannot take her home and take care of her as they are elderly. Patient is afebrile with no reported chest pain or shortness of breath. Patient continues on 4 L and continues to remove her oxygen frequently. Patient is maintained on IV Lasix and being transition to daily. Continue monitoring kidney functions and nephrology is following. Being monitored off antibiotic therapy 09/13/2023 Patient is seen in follow-up this morning continues with a sitter at the bedside. Per nursing staff patient had a large black bowel movement and was incontinent. Occult Was positive and stat repeat hemoglobin was obtained and actually improved from previous at 9.5. Patient is maintained on aspirin, Plavix, and heparin and will hold for now. No GI available and will consult general surgery for evaluation of possible GI bleed. Contents do not appear to be melanotic on exam although dark stools are noted. Multiple other consultations following as well as psychiatry who reevaluated and adjusted medications. Mentation is improved today and less anxious and agitated and per nursing staff more appropriate today. Will continue current regimen and also continue [employer] SERV[employer] TEAM MEMBER and narcotic agents. 09/14/2023 Patient is evaluated in follow-up with sister at the bedside as well as family. General surgery is planning for an upper endoscopy on Saturday with no further reports of any black or bloody stool. Aspirin Plavix and heparin remain on hold. Patient was seen in follow-up by psychiatry for now continues on Prolixin as needed, olanzapine as needed. Patient is maintained on risperidone twice a day scheduled. Patient's mentation she is currently alert x 1-0 she is hallucinating and appears delirious. Continues on IV Lasix 40 mg every 12 hours. Continues on IV daptomycin. Continues in the cast to the right lower extremity. Bun is 32, creatinine is 1.57, magnesium 1.7. White blood cell count 5.1. 09/15/2023 Patient evaluated today with health and safety inspector at the bedside. Patient has no further episodes of bloody stool and is scheduled to undergo an endoscopy on Saturday. Patient is more awake alert today and is more appropriate although she continues to have hallucinations. Patient continues on IV daptomycin with concerns for lower extremity cellulitis. No significant complaints today. 09/16/2023 Patient is seen in follow-up continues with confusion and sitter at the bedside. Patient is n.p.o. currently and scheduled to undergo EGD today with general surgery. Hemoglobin is stable and 9.4 with no active bleeding other than nosebleed. Patient is maintained on Afrin as needed. Patient continues on room air and weaning as tolerated. 91% on room air with pulmonary following. Case management/social work following as well with plans on attempting to have patient go to ECF for significant weakness. Patient continues with sitter at this time making it difficult for placement although patient continues to be somewhat confused and restless and impulsive. Patient is afebrile with no reports of chest pain or shortness of breath. Patient currently n.p.o. and diet will be resumed once cleared by surgery. Kidney functions improving and patient remains on IV Lasix with nephrology following. 09/17/2023 Patient seen and evaluated in follow-up this morning and mood is appropriate, less anxious and restless and responding more appropriately to questions and com mands. Patient does have a sitter for safety at the bedside and if mentation continues to improve need to consider having sitter removed. Patient with significant weakness and prolonged hospitalization will need ECF on discharge. Parents are working on guardianship to help with patient's overall medical care. Patient maintained on IV Lasix showing improvements with nephrology following and will be switching to torsemide. Follow-up on repeat labs and replace electrolytes per protocol. Hemoglobin is stable above 9 with no active bleeding noted. Patient is status post EGD showing antral gastritis. Patient continues to have incontinence with multiple bowel movements although no dark stools or bleeding noted. Cardiology following recommending resuming Plavix when bleeding is stable. Patient continues to have intermittent nosebleeds and has been placed on humidification as patient continues on 4 L via nasal cannula. Patient found multiple times on exam on room air with no oxygen. Recommend to wean FiO2 as tolerated and documented evaluate oxygen saturations while on room air. Recommend PT/OT therapy daily. 09/18/2023 Patient is seen in follow-up today and patient continues to be confused and extremely anxious. As needed medications being used and patient is maintained on risperdol and remains extremely anxious. Patient was noted to have elevated heart rate with some shortness of breath on exam maintained on 4 L via nasal cannula. Will obtain a chest x-ray and also discussed with cardiology. Patient denies any chest pain or shortness of breath although is dyspneic while talking on exam. Patient is afebrile and maintained on daptomycin with infectious disease following awaiting cultures on the catheter site from the previous dialysis port. Kidney functions remained stable with nephrology following and will continue current regimen. Patient has been transition to torsemide daily. Hemoglobin remained stable with no active bleeding noted. Encouraged oral intake and supervision with meals. Encouraged the patient to sit upright along with nursing staff as patient is found to be laying flat on exam each day. Patient is restless and squirms around in the bed all day making it difficult to maintain proper positioning. 09/19/2023 Patient is seen in follow-up today had elevated heart rates into the 150s and cardiology was reconsulted placing the patient on Cardizem drip and patient was brought to 3 S. patient's overall mentation continues to wax and wane with continuous confusion, anxiousness, agitation. Medications being adjusted and patient continues to be extremely weak and also continues to require a sitter at the bedside. Heart rate currently rate controlled and Cardizem on hold. Patient is afebrile with no reported chest pain or worsening shortness of breath. Patient is on 2 L via nasal cannula and needs continuous encouragement on keeping the oxygen on. Patient will continue on daptomycin while inpatient with infectious disease following. Review of systems: Constitutional: No reports of fatigue, fever, or chills, reports feeling anxious Cardiovascular: No reports of chest pain or palpitations Respiratory: No reports of shortness of breath or cough GI: No reports of nausea, vomiting, reports having multiple bowel movements that are loose : No reports of dysuria or retention Neurovascular: reports of generalized weakness although patient reports would like to go home All medications have been reviewed PHYSICAL EXAMINATION: GENERAL: The patient is on nasal cannula, awake alert and oriented x 2, slightly less anxious today, elderly appearing, unkempt, ill-appearing HEENT: Pupils are round and equally reacting to light. EOMI. CARDIOVASCULAR: S1 and S2 muffled PULMONARY: Decreased breath sounds bilaterally with some scattered rhonchi noted ABDOMEN: Soft, nontender, nondistended, normoactive bowel sounds. No palpable organomegaly. MUSCULOSKELETAL: No joint swelling or deformity. EXTREMITIES: Right lower extremity bandage with partial cast noted NEUROLOGICAL: pupils reactive, extremely anxious and confused today SKIN: Patient has right plantar surface ulcer on the posterior foot stage III-IV with areas of necrotic tissue. Casting and Tam wrap noted of the right lower extremity Assessment: Asystole/cardiopulmonary arrest x 2 with CPR/ROSC, unknown etiology Respiratory failure requiring intubation s/p extubation 08/25/2023 Concerns for chest wall cellulitis near the previous dialysis site, continued on daptomycin with ID following Large black stools, concern for GI bleed, ruled out, EGD showed antral gastritis Acute metabolic encephalopathy with concerns of anoxia, status postcardiac arrest Congestive heart failure with systolic dysfunction acute on chronic exacerbation Acute hypoxic respiratory failure secondary to CHF Ischemic cardiomyopathy with improved EF Acute kidney injury secondary to ATN on chronic kidney disease stage III Urinary tract infection with E. coli Subacute fracture of the medial and lateral malleolus, orthopedics following with no plans of immediate surgical intervention at this time Right heel stage III pressure injury continue local wound care with aquacel ID following. Genital lesions, will need automotive service cashier follow up outpatient for routine screenings Hypertension Hyperlipidemia Type 2 diabetes mellitus uncontrolled hgb a1c 12.1 Severe pulmonary hypertension COPD without any acute exacerbation Peripheral neuropathy GI prophylaxis DVT prophylaxis Full code Plan: Patient being followed by multiple medical consultation as well as health and safety inspector at the bedside. Patient extremely anxious and confused although appears improved from yesterday. Neurology following sporadically with no changes in current treatment plan, awaiting psychiatry to reevaluate the patient and appreciate input and recommendations. Wean FiO2 as tolerated and patient is maintained on 2-4 L with oxygen saturations of 91%. Patient has been weaning FiO2 as tolerated and continues to take tubing off. Patient being followed by nephrology with stable kidney functions and making urine. Patient does have indwelling [place] catheter and will consider removing. Patient being transition to torsemide per nephrology Patient's heart rate noted to be elevated, chest x-ray ordered as patient was slightly dyspneic on exam and cardiology made aware and was started on Cardizem drip. Cardizem currently on hold and heart rate is rate controlled at this time. Patient was transition to 3 S. due to the Cardizem drip. Patient will need reevaluation with PT/OT therapy for continued weakness and prolonged hospitalization as patient will most likely require ECF. Family feels unsafe to take care of her and care for her at home. They are currently working on guardianship as patient is not deemed capable of making sound medical decisions for herself. Mentation continues to wax and wane each day and is less anxious today. All PRODUCE SERVICE TEAM MEMBER and narcotic agents being held and patient was reevaluated by psychiatry with adjustments to medications and will continue current regimen. Continue health and safety inspector at this time as patient is known to be very impulsive and attempts to get out of the bed very frequently Patient's hemoglobin remains above 9 with no active bleeding noted. Patient evaluated by general surgery and underwent EGD showing antral gastritis with no active bleeding noted. Patient continues with nosebleeds likely secondary to dryness from continued oxygen use. Continue with Afrin as needed Infectious disease following and patient has been placed back on IV antibiotics with concerns of previous dialysis site chest wall cellulitis.. Patient continued on daptomycin. Patient remains afebrile and white count is within normal limits. Repeat CT of the brain is negative for acute process. Neurology following and patient has been unable to receive an MRI given patient's continued restlessness and anxiety Overall prognosis is guarded It will be extremely difficult to have the patient placed in an AFC/ECF due to waxing and waning of mentation and agitation. Need to remove the sitter although unable to as patient remains impulsive and is high risk for falling. Again will have psychiatry reevaluate The impression and plan of care has been dictated by Mouna Rowley, Nurse Practitioner as directed. Dr. Ricardo MD I have performed a history and examination and MDM of this patient, discussed the same with the dictator, and agree with the dictator's assessment and plan as written ,documented as a scribe. Based on total visit time, I have performed more than 50% of the visit. Objective - Vital Signs Vital signs: Vital Signs Temp 97.8 F 09/19/23 03:45 Pulse 56 L 09/19/23 03:45 Resp 20 09/19/23 03:45 BP 140/65 09/19/23 03:45 Pulse Ox 94 L 09/19/23 03:45 FiO2 3 09/02/23 04:00 Intake & Output 09/18/23 09/19/23 09/19/23 18:59 06:59 18:59 Intake Total 26.167 120 Output Total 650 200 Balance -650 -173.833 120 Intake: Intake, IV Titration 26.167 Amount Diltiazem 125 mg In 26.167 Sodium Chloride 0.9% 100 ml @ 10 MG/HR 10 mls/hr IV .[id number] [facility] Rx#: [id number] Oral 120 Output: Urine 650 200 Other: Voiding Method Indwelling Catheter Indwelling Catheter ABP, PAP, CO, CI - Last Documented Arterial Blood Pressure 125/73 - Labs CBC & Chem 7: 09/19/23 08:39 09/19/23 08:39 Labs: Abnormal Lab Results - Last 24 Hours (Table) 09/18/23 09/18/23 09/18/23 Range/Units 11:15 16:28 20:13 BUN (7-17) mg/dL Creatinine (0.52-1.04) mg/dL Glucose (74-99) mg/dL POC Glucose (mg/dL) 208 H 218 H 186 H (70-110) mg/dL Calcium (8.4-10.2) mg/dL 09/18/23 09/18/23 09/19/23 Range/Units 20:39 21:57 06:15 BUN 32 H (7-17) mg/dL Creatinine 1.40 H (0.52-1.04) mg/dL Glucose 185 H (74-99) mg/dL POC Glucose (mg/dL) 185 H 198 H (70-110) mg/dL Calcium 7.4 L (8.4-10.2) mg/dL Microbiology - Last 24 Hours (Table) 09/15/23 15:46 Gram Stain - Final Catheter Site Wound Culture - Final
[2023-09-20 05:38] LABS: Glucose,Whole Blood 229 mg/dL (70-110)
--- NOTE | 2023-09-20 08:55 | P.PN ---
Subjective Progress Note Date: 09/20/23 patient has had no further signs of GI bleed. Her hemoglobin is stable at 9. Patient feels comfortable. She wishes to be discharged home. On exam vital signs are stable. Abdomen is soft. Patient stable from a surgical standpoint for discharge. Objective - Vital Signs Vital signs: Vital Signs Temp 97.9 F 09/20/23 08:00 Pulse 52 L 09/20/23 08:00 Resp 18 09/20/23 08:00 BP 109/57 09/20/23 08:00 Pulse Ox 100 09/20/23 08:00 FiO2 3 09/02/23 04:00 Intake & Output 09/19/23 09/20/23 09/20/23 18:59 06:59 18:59 Intake Total 300 240 240 Output Total 150 800 Balance 150 -560 240 Weight 53 kg Intake: Oral 300 240 240 Output: Urine 150 800 Other: Voiding Method Indwelling Catheter Indwelling Catheter Indwelling Catheter ABP, PAP, CO, CI - Last Documented Arterial Blood Pressure 125/73 - Labs CBC & Chem 7: 09/19/23 08:39 09/19/23 08:39 Labs: Abnormal Lab Results - Last 24 Hours (Table) 09/19/23 09/19/23 09/19/23 Range/Units 08:39 08:39 16:14 RBC 3.19 L (3.80-5.40) m/uL Hgb 9.0 L (11.4-16.0) gm/dL Hct 30.4 L (34.0-46.0) % MCHC 29.5 L (31.0-37.0) g/dL RDW 16.7 H (11.5-15.5) % Lymphocytes # 0.9 L (1.0-4.8) k/uL Chloride 108 H (98-107) mmol/L BUN 31 H (7-17) mg/dL Creatinine 1.35 H (0.52-1.04) mg/dL POC Glucose (mg/dL) 173 H (70-110) mg/dL Calcium 7.8 L (8.4-10.2) mg/dL 09/19/23 09/20/23 Range/Units 19:43 05:32 RBC (3.80-5.40) m/uL Hgb (11.4-16.0) gm/dL Hct (34.0-46.0) % MCHC (31.0-37.0) g/dL RDW (11.5-15.5) % Lymphocytes # (1.0-4.8) k/uL Chloride (98-107) mmol/L BUN (7-17) mg/dL Creatinine (0.52-1.04) mg/dL POC Glucose (mg/dL) 183 H 229 H (70-110) mg/dL Calcium (8.4-10.2) mg/dL
--- NOTE | 2023-09-20 10:22 | P.PN ---
Subjective Patient is seen in follow-up for acute kidney injury. Renal function stable. On oral diuretic. Nonoliguric. Oral intake is good. Sitter at bedside. Vital signs are stable. General: Agitated and restless. HEENT: On nasal cannula. LUNGS: No audible rhonchi or wheezes. HEART: Rate and Rhythm are regular. ABDOMEN: No distention. EXTREMITITES: Trace edema. Objective - Vital Signs Vital signs: Vital Signs Temp 97.9 F 09/20/23 08:00 Pulse 52 L 09/20/23 08:00 Resp 18 09/20/23 08:00 BP 109/57 09/20/23 08:00 Pulse Ox 100 09/20/23 08:00 FiO2 3 09/02/23 04:00 Intake & Output 09/19/23 09/20/23 09/20/23 18:59 06:59 18:59 Intake Total 300 240 240 Output Total 150 800 Balance 150 -560 240 Weight 53 kg Intake: Oral 300 240 240 Output: Urine 150 800 Other: Voiding Method Indwelling Catheter Indwelling Catheter Indwelling Catheter ABP, PAP, CO, CI - Last Documented Arterial Blood Pressure 125/73 - Labs CBC & Chem 7: 09/19/23 08:39 09/19/23 08:39 Labs: Abnormal Lab Results - Last 24 Hours (Table) 09/19/23 09/19/23 09/19/23 Range/Units 08:39 08:39 16:14 RBC 3.19 L (3.80-5.40) m/uL Hgb 9.0 L (11.4-16.0) gm/dL Hct 30.4 L (34.0-46.0) % MCHC 29.5 L (31.0-37.0) g/dL RDW 16.7 H (11.5-15.5) % Lymphocytes # 0.9 L (1.0-4.8) k/uL Chloride 108 H (98-107) mmol/L BUN 31 H (7-17) mg/dL Creatinine 1.35 H (0.52-1.04) mg/dL POC Glucose (mg/dL) 173 H (70-110) mg/dL Calcium 7.8 L (8.4-10.2) mg/dL 09/19/23 09/20/23 Range/Units 19:43 05:32 RBC (3.80-5.40) m/uL Hgb (11.4-16.0) gm/dL Hct (34.0-46.0) % MCHC (31.0-37.0) g/dL RDW (11.5-15.5) % Lymphocytes # (1.0-4.8) k/uL Chloride (98-107) mmol/L BUN (7-17) mg/dL Creatinine (0.52-1.04) mg/dL POC Glucose (mg/dL) 183 H 229 H (70-110) mg/dL Calcium (8.4-10.2) mg/dL Assessment and Plan Plan: Assessment: 1. Acute kidney injury on chronic kidney disease secondary to ATN secondary to cardiorenal syndrome and cardiac arrest. Renal function stable. Creatinine 1.35 yesterday. Patient was on hemodialysis in the past with last treatment being July 02, 2023. 2. Volume overload. Improved with diuresis. 3. Acute on chronic diastolic CHF. 4. Diabetes mellitus. 5. Right foot wound. 6. Coronary disease with cardiac stenting. 7. Status post PEA arrest with concern for anoxic encephalopathy. 8. Septic shock with urine culture positive for E. coli and catheter tip culture positive for Corynebacterium. On antibiotics. Off vasopressors. 9. Metabolic acidosis secondary to acute kidney injury and IV fluids. Improved. 10. Anemia. Iron deficiency noted. Status post IV iron. On Aranesp. Also received blood transfusion this admission. 11. Hypernatremia from lack of oral water intake and free water diuresis. Status post D5W. Improved. Plan: Maintain torsemide. Encouraged oral intake, including free water. Avoid nephrotoxins. Continue to monitor renal function and urine output.
[2023-09-20 11:23] LABS: Glucose,Whole Blood 105 mg/dL (70-110)
--- NOTE | 2023-09-20 13:00 | P.PN ---
Subjective Progress Note Date: 09/20/23 On today's evaluation of 09/16/2023, mental status is still unchanged and the patient continues to have restlessness in bed requiring a sitter at the bedside at all times. No focal neurological deficits. The patient is currently on risperidone 2 mg p.o. twice a day and the patient is also on Requip 1 mg at bedtime. No significant respiratory distress. The patient is currently on room air oxygen with a pulse ox of 90%. There is also suspicion for a GI bleed. The patient's hemoglobin is currently at 9.4 with a white cell count of 4.8. BUN is at 30 with a creatinine of 1.45 and a sodium level of 141. The patient is to undergo an EGD today regarding workup for GI bleeding. On today's evaluation of 09/17/2023, the patient seems to be calm and comfortable without any significant restlessness or agitation. She is answering questions appropriately and she seems to be quite responsive at this point in time. Noted EGD was done yesterday and there was no indication for any acute bleeding and t he patient's hemoglobin has remained stable. No fever. No chills. The white cell count today is at 5.5 with a hemoglobin 9.2 and a platelet count of 272. Electrolytes are normal. BUN is at 25 with a creatinine of 1.5 consistent with chronic kidney disease and the creatinine has been stable. LFTs are also within normal limits. Stool for C. difficile has been negative. The patient remains on risperidone 2 mg p.o. twice daily and the patient is also on Requip. No other significant events overnight. Sitter remains at the bedside. Infectious disease continues to follow-up this patient. Patient is being treated with broad-spectrum antibiotics. The patient has a chronic right heel wound in addition to an area of cellulitis at the site of the previously inserted dialysis catheter and the patient continues to be on daptomycin. 09/18/2023, patient is again restless. At times, she is still getting confused. As such, despite some limited improvement in her mentation yesterday, she is still having episodes of confusion and restlessness and she is requiring a sitter at bedside. This has prevented us from transferring care to a ECF/LTAC facility. Will consult again with neurology/psychiatry. She is on Risperdal. White cell count is 4.7 hemoglobin is 8.8 and platelet count of 245. Creatinine is stable at 1.6 and a BUN of 27. Electrolytes are all within normal limits. She is currently on 2 L with a pulse ox of 96%. No respiratory distress. On 09/19/2023, the patient is being seen for a follow-up. No major change in condition. This morning she is comfortable and quiet and the sister at the bedside. Labs were reviewed. Creatinine stable at 1.35 with a sodium level of 140. White cell count is 4.7 with a hemoglobin of 9. No new complaints. Medication remains unchanged. Remains on aspirin 2 mg twice a day and Requip for increased restlessness. Remains on daptomycin. Remains on torsemide 20 mg p.o. daily. The heart rate is under better control. The patient is currently on metoprolol 12.5 mg p.o. twice a day. She is off the Cardizem drip. She remains on Plavix. On 09/20/2023, no new complaints and the patient's condition essentially unchanged. Sitter at the bedside. She is ambulating. Medication remains unchanged. Clinically stable. Hemodynamically stable. Labs have been stable and the patient has demonstrated stable renal function. No shortness of breath. She remains on oxygen and she is on 3 L/min nasal cannula for now. Pulse ox in order of 99 to 100%. No new labs are available from today. Objective - Vital Signs Vital signs: Vital Signs Temp 97.9 F 09/20/23 08:00 Pulse 52 L 09/20/23 08:00 Resp 18 09/20/23 08:00 BP 109/57 09/20/23 08:00 Pulse Ox 100 09/20/23 08:00 FiO2 3 09/02/23 04:00 Intake & Output 09/19/23 09/20/23 09/20/23 18:59 06:59 18:59 Intake Total 300 240 240 Output Total 150 800 Balance 150 -560 240 Weight 53 kg Intake: Oral 300 240 240 Output: Urine 150 800 Other: Voiding Method Indwelling Catheter Indwelling Catheter Indwelling Catheter ABP, PAP, CO, CI - Last Documented Arterial Blood Pressure 125/73 - Exam No acute distress, calm and comfortable on 2 L of oxygen by nasal cannula. Head exam was generally normal. There was no scleral icterus or corneal arcus. Mucous membranes were moist. HEENT examination is grossly unremarkable. Neck supple. Full range of motion. No adenopathy thyromegaly or neck vein dis tention. Cardiovascular examination reveals regular rhythm rate. S1-S2 normal. No S3 or S4. No discernible murmur noted. Heart sounds are distant. Lungs reveal scattered bilateral rhonchi. No wheezes or crackles. Breath sounds equal bilaterally. Abdomen soft without bowel sounds. Extremities are intact. No cyanosis clubbing or edema. The patient has a soft splint in her right lower extremity. Pulses are diminished at the present in all 4 extremities. Skin is without rash or lesion. Stage III nonhealing heel ulcer in the right lower extremity. Neurologic examination No focal neurological deficits. Pupils are equal reactive to light. Fluctuating mental status with restlessness and episodes of confusion. - Labs CBC & Chem 7: 09/19/23 08:39 09/19/23 08:39 Labs: Abnormal Lab Results - Last 24 Hours (Table) 09/19/23 09/19/23 09/19/23 Range/Units 08:39 08:39 16:14 RBC 3.19 L (3.80-5.40) m/uL Hgb 9.0 L (11.4-16.0) gm/dL Hct 30.4 L (34.0-46.0) % MCHC 29.5 L (31.0-37.0) g/dL RDW 16.7 H (11.5-15.5) % Lymphocytes # 0.9 L (1.0-4.8) k/uL Chloride 108 H (98-107) mmol/L BUN 31 H (7-17) mg/dL Creatinine 1.35 H (0.52-1.04) mg/dL POC Glucose (mg/dL) 173 H (70-110) mg/dL Calcium 7.8 L (8.4-10.2) mg/dL 09/19/23 09/20/23 Range/Units 19:43 05:32 RBC (3.80-5.40) m/uL Hgb (11.4-16.0) gm/dL Hct (34.0-46.0) % MCHC (31.0-37.0) g/dL RDW (11.5-15.5) % Lymphocytes # (1.0-4.8) k/uL Chloride (98-107) mmol/L BUN (7-17) mg/dL Creatinine (0.52-1.04) mg/dL POC Glucose (mg/dL) 183 H 229 H (70-110) mg/dL Calcium (8.4-10.2) mg/dL Assessment and Plan Plan: Cardiopulmonary arrest, x 2, with cardiopulmonary resuscitation, and return of spontaneous circulation on 08/23/23. Acute hypoxic respiratory failure, postcardiac arrest. The patient currently on 3 L of O2 nasal cannula, S/P intubation, and mechanical ventilation, secondary to cardiopulmonary arrest, August 23, 2023. She was extubated on 08/25/23. Encephalopathy, multifactorial, suspect post anoxic encephalopathy and cardiac arrest. Currently on risperidone and Requip for ongoing restlessness and encephalopathy. Patient is currently on risperidone 2 mg p.o. twice daily. History of congestive heart failure (HFPEF) Coronary artery disease/cardiomyopathy and the patient is post non-ST segment elevation myocardial infarction. Stage III chronic kidney disease. Right heel pressure ulcer, stage III. Subacute fracture of the medial and lateral malleolus. History of hypertension. History of hyperlipidemia. History of type 2 diabetes mellitus. History of severe pulmonary hypertension. History of COPD. History of peripheral neuropathy. Chest wall pain related to CPR. Plan: No changes in condition and patient remains on 3 days of O2 nasal cannula. This should be weaned off and the patient is ambulating using the incentive spirometer. Continue risperidone Continue Requip Continue same medication EGD was noted and there is no evidence of any upper GI source of bleeding and it showed some mild antral gastritis and hemoglobin stable for now Monitor hemoglobin ID to manage the antibiotics and the patient is still on daptomycin Will continue to follow
--- NOTE | 2023-09-20 13:30 | P.PN ---
Subjective Progress Note Date: 09/20/23 History of Present Illness: The patient is a 57-year-old female with known history of hypertension, hyperl ipidemia, diabetes mellitus as well as a history of coronary disease status post stenting of the RCA and chronic kidney disease who presented with dyspnea and had a cardiopulmonary arrest requiring CPR and mechanical ventilation. She is extubated, complaining of chest wall tenderness post CPR. She continues to be in sinus mechanism and hemodynamically stable. She had some bradycardia earlier and was started on IV dopamine. She is in sinus mechanism with no further bradycardia. Her urinary output has been stable. Her initial echo on presentation showed a preserved systolic function subsequently was found to have cardiomyopathy but that was done shortly after the event. She has a subacute fracture of the medial and lateral malleolus on the right side. August 26: The patient is sedated, she was quite agitated during the night. She had few episodes of sinus bradycardia, brief. She had no evidence of high-grade AV block. Her urinary output is stable. Her blood pressure is under good control without any vasopressors. Her repeat echocardiogram showed a preserved systolic function. She has been evaluated by neurology for possible anoxic encephalopathy. August 1: The patient is awake, confused. In sinus mechanism with no further episodes of high-grade AV block. Her blood pressure is stable. Her urinary output stable. There is no evidence of atrial fibrillation or ventricular ectopic activity. Repeat echocardiogram showed a normal left ventricle systolic function. August 28: The patient is sedated. She was agitated and confused during the night. She had no further episodes of bradycardia arrhythmia. Her blood pressure has been stable. She continues to be intubated. She is undergoing an EEG to evaluate her neurological status. There is no evidence of atrial fibrillation or ventricular tachyarrhythmia. August 29: The patient is more awake continues to have some episodes of confusion. She continues to be in sinus mechanism with no arrhythmia. Her EEG showed some i mprovement. Her urinary output has been good. Her blood pressure is stable and there is no evidence of significant hypotension. September 14, 2023 Seen and examined at bedside this a.m. Patient is confused and is in delirium state. She is needing a sitter to be present to calm her down. Mild volume overload 09/15 Patient has been transferred out of the intensive care unit. She is scheduled for EGD today due to GI bleed and stool for occult blood. Plavix is currently on hold but she has been continued on aspirin 81 mg daily. Patient remains quite confused with sitter at the bedside. Blood pressure 144/76, heart rate 82, pulse ox 90% on room air. Repeat blood work reveals stable hemoglobin of 9.4, BUN 30 creatinine 1.54. She is s/p transfusion of 2 units of packed RBCs. Patient has been picking at her nose and face and there is dried blood around her nose and mouth and both hands. 09/19 Patient has been on the [facility] floor most of this week and cardiology signed off as of 09/17. We have been reconsulted regarding bradycardia. Patient's heart rate was running in the 30s during the night and also today. Sinus rhythm. Patient received metoprolol tartrate 12.5 mg this morning. Patient is asymptomatic. On 09/15, patient underwent EGD that revealed antral gastritis. Pathology positive for mild chronic gastritis. She has not been resumed on DAPT. Physical Examination: 57-year-old female, awake with some confusion, improved,Blood pressure 147/60, Heart rate 80 Head: Normocephalic. Eyes: Sclerae nonicteric. Neck: Good carotid upstroke, no bruit, mild elevated jugular venous distention. Lungs: Clear anteriorly Heart: Regular rate and rhythm, S1-S2, no S3, no rub. No murmur. Abdomen: Soft , positive bowel sounds no organomegaly. Extremities: 1+ pitting edema bilateral lower extremity, cast on the right lower extremity Impression: 1. Status post cardiopulmonary arrest, etiology unclear. No clear evidence of acute ischemic event. 2. Status post stenting of the RCA during prior admission, May 2023 3. Chronic kidney disease 4. Chest wall discomfort, stable 5. History of hyperlipidemia 6. History of hypertension 7. Bradycardia resolved 8. History of diabetes 9. Cardiomyopathy resolved 10. Anoxic encephalopathy, postarrest, improving 11. Delirium 12. Right heel wound 13. Black tarry stools, concern of GI bleeding Plan: Both aspirin and Plavix have been on hold Nursing to follow-up with general surgery to determine if we can resume DAPT Discontinue beta-satnam Continue telemetry monitoring Repeat EKG in the morning Nurse practitioner note has been reviewed, I agree with documented findings and plan of care. Patient was seen and examined. Objective - Vital Signs Vital signs: Vital Signs Temp 98 F 09/20/23 12:00 Pulse 45 L 09/20/23 12:00 Resp 18 09/20/23 12:00 BP 100/60 09/20/23 12:00 Pulse Ox 97 09/20/23 12:00 FiO2 3 09/02/23 04:00 Intake & Output 09/19/23 09/20/23 09/20/23 18:59 06:59 18:59 Intake Total 300 240 550 Output Total 150 800 Balance 150 -560 550 Weight 53 kg Intake: Oral 300 240 550 Output: Urine 150 800 Other: Voiding Method Indwelling Catheter Indwelling Catheter Indwelling Catheter ABP, PAP, CO, CI - Last Documented Arterial Blood Pressure 125/73 - Labs CBC & Chem 7: 09/19/23 08:39 09/19/23 08:39 Labs: Abnormal Lab Results - Last 24 Hours (Table) 09/19/23 09/19/23 09/20/23 Range/Units 16:14 19:43 05:32 POC Glucose (mg/dL) 173 H 183 H 229 H (70-110) mg/dL
--- NOTE | 2023-09-20 15:18 | P.PN ---
Subjective Progress Note Date: 09/20/23 Principal diagnosis: Reason for follow-up is right heel diabetic foot ulcer Patient is a 57-year-old female with a past medical history significant for diabetes mellitus hypertension hyperlipidemia history of renal insufficiency requiring dialysis currently not on dialysis and the patient also have a chronic nonhealing wound to the right heel area, present to the hospital with increasing shortness of breath and swelling concerning for fluid overload.Patient did have a cardiac arrest around 4 AM 08/23/2023 with the patient went into asystole got resuscitated intubated and transferred to the ICU subsequently have another cardiac arrest with PEA rhythm not resuscitated. On today's evaluation that is 09/20/2023,the patient denies any fever or any chills, patient is breathing comfortably on 3 L nasal cannula oxygen, the patient denies chest pain shortness of breath and no significant cough, patient denies abdominal pain, no nausea vomiting or diarrhea. Patient mention feeling better wants to go home. No new labs has been repeated today Objective - Vital Signs Vital signs: Vital Signs Temp 98 F 09/20/23 12:00 Pulse 45 L 09/20/23 12:00 Resp 18 09/20/23 12:00 BP 100/60 09/20/23 12:00 Pulse Ox 97 09/20/23 12:00 FiO2 3 09/02/23 04:00 Intake & Output 09/19/23 09/20/23 09/20/23 18:59 06:59 18:59 Intake Total 300 240 550 Output Total 150 800 Balance 150 -560 550 Weight 53 kg Intake: Oral 300 240 550 Output: Urine 150 800 Other: Voiding Method Indwelling Catheter Indwelling Catheter Indwelling Catheter ABP, PAP, CO, CI - Last Documented Arterial Blood Pressure 125/73 - Exam GENERAL DESCRIPTION: Middle-aged female lying in bed in no distress RESPIRATORY SYSTEM: Unlabored breathing , decreased breath sounds at bases HEART: S1 S2 regular rate and rhythm , ABDOMEN: Soft , no tenderness EXTREMITIES: Right heel wound is currently dressed no drainage - Labs CBC & Chem 7: 09/19/23 08:39 09/19/23 08:39 Labs: Abnormal Lab Results - Last 24 Hours (Table) 09/19/23 09/19/23 09/20/23 Range/Units 16:14 19:43 05:32 POC Glucose (mg/dL) 173 H 183 H 229 H (70-110) mg/dL Assessment and Plan (1) Pressure ulcer of right heel, stage 3 Current Visit: No Status: Acute Code(s): L89.613 - PRESSURE ULCER OF RIGHT HEEL, STAGE 3 SNOMED Code(s): 09732778589809 (2) Type 2 diabetes mellitus with foot ulcer Current Visit: No Status: Acute Code(s): E11.621 - TYPE 2 DIABETES MELLITUS WITH FOOT ULCER; L97.509 - NON-PRESSURE CHRONIC ULCER OTH PRT UNSP FOOT W UNSP SEVERITY SNOMED Code(s): 331536999 (3) UTI (urinary tract infection) Current Visit: Yes Status: Acute Code(s): N39.0 - URINARY TRACT INFECTION, SITE NOT SPECIFIED SNOMED Code(s): 47568939 (4) Aspiration pneumonia Current Visit: Yes Status: Acute Code(s): J69.0 - PNEUMONITIS DUE TO INHALATION OF FOOD AND VOMIT SNOMED Code(s): 088574534 Plan: 1patient with chronic nonhealing wound to the right heel area which has been there for a couple of months now patient overall wound base looks clean with no slough tissue in the wound base, patient to continue local wound care with Aquacel silver dressing change every 48 hours 2-patient did have cellulitis to the left chest wall site of previous dialysis catheter insertion and some purulent drainage reported by nursing staff, redness to the right chest wall has decreased no purulent drainage patient is covered with daptomycin to continue will transition to oral doxycycline on discharge Dictation was produced using [employer] dictation software. please excuse any grammatical, word or spelling errors. Time with Patient: Less than 30
[2023-09-20 16:07] LABS: Glucose,Whole Blood 152 mg/dL (70-110)
[2023-09-20] MEDS: ASPIRIN 81 MG PO SCH (16:55)
[2023-09-20 17:21] LABS: African American GFR (CKD) 30 (>60 ml/min/1.73 sqM); Anion Gap 2 mmol/L; Blood Urea Nitrogen 44 mg/dL (7-17); Calcium 7.3 mg/dL (8.4-10.2); Carbon Dioxide 30 mmol/L (22-30); Chloride 108 mmol/L (98-107); Glucose 135 mg/dL (74-99); Non-African American GFR(CKD) 26 (>60 ml/min/1.73 sqM); Potassium 4.7 mmol/L (3.5-5.1); Sodium 140 mmol/L (137-145)
--- NOTE | 2023-09-20 17:39 | P.PN ---
Subjective Progress Note Date: 09/20/23 57-year-old female came in with complaints of shortness of breath and orthopnea found to be in congestive heart failure exacerbation patient has congestive heart failure with reduced ejection fraction in the past patient has increasing pedal edema. Patient also has an ulcer in the right foot stage III-IV which appeared to be infected we will consult wound care and infectious disease. Patient was on hemodialysis during last hospitalization her creatinine presently is 1.5 which is significantly improved patient potassium is 5.5, patient is on Entresto and Aldactone Aldactone will be held Entresto will be continued since she is receiving IV Lasix and expecting her potassium to improve if it does not improve or get worse then Entresto need to be discontinued as well. Patient has hypervolemic hyponatremia and hyperglycemia. Objective - Vital Signs Vital signs: Vital Signs Temp 97.9 F 09/20/23 08:00 Pulse 52 L 09/20/23 08:00 Resp 18 09/20/23 08:00 BP 109/57 09/20/23 08:00 Pulse Ox 100 09/20/23 08:00 FiO2 3 09/02/23 04:00 Intake & Output 09/19/23 09/20/23 09/20/23 18:59 06:59 18:59 Intake Total 300 240 480 Output Total 150 800 Balance 150 -560 480 Weight 53 kg Intake: Oral 300 240 480 Output: Urine 150 800 Other: Voiding Method Indwelling Catheter Indwelling Catheter Indwelling Catheter ABP, PAP, CO, CI - Last Documented Arterial Blood Pressure 125/73 - Exam GENERAL: The patient is on nasal cannula, awake alert and oriented x 2, slightly less anxious today, elderly appearing, unkempt, ill-appearing HEENT: Pupils are round and equally reacting to light. EOMI. CARDIOVASCULAR: S1 and S2 muffled PULMONARY: Decreased breath sounds bilaterally with some scattered rhonchi noted ABDOMEN: Soft, nontender, nondistended, normoactive bowel sounds. No palpable organomegaly. MUSCULOSKELETAL: No joint swelling or deformity. EXTREMITIES: Right lower extremity bandage with partial cast noted NEUROLOGICAL: pupils reactive, extremely anxious and confused today SKIN: Patient has right plantar surface ulcer on the posterior foot stage III-IV with areas of necrotic tissue. Casting and Tam wrap noted of the right lower extremity - Labs CBC & Chem 7: 09/19/23 08:39 09/20/23 16:27 Labs: Abnormal Lab Results - Last 24 Hours (Table) 09/19/23 09/19/23 09/20/23 Range/Units 16:14 19:43 05:32 POC Glucose (mg/dL) 173 H 183 H 229 H (70-110) mg/dL Assessment and Plan Assessment: Asystole/cardiopulmonary arrest x 2 with CPR/ROSC, unknown etiology Respiratory failure requiring intubation s/p extubation 08/25/2023 Concerns for chest wall cellulitis near the previous dialysis site, continued on daptomycin with ID following Large black stools, concern for GI bleed, ruled out, EGD showed antral gastritis Acute metabolic encephalopathy with concerns of anoxia, status postcardiac arrest Congestive heart failure with systolic dysfunction acute on chronic exacerbation Acute hypoxic respiratory failure secondary to CHF Ischemic cardiomyopathy with improved EF Acute kidney injury secondary to ATN on chronic kidney disease stage III Urinary tract infection with E. coli Subacute fracture of the medial and lateral malleolus, orthopedics following with no plans of immediate surgical intervention at this time Right heel stage III pressure injury continue local wound care with aquacel ID following. Genital lesions, will need audiometric technician follow up outpatient for routine screenings Hypertension Hyperlipidemia Type 2 diabetes mellitus uncontrolled hgb a1c 12.1 Severe pulmonary hypertension COPD without any acute exacerbation Peripheral neuropathy GI prophylaxis DVT prophylaxis Full code Plan: Patient being followed by multiple medical consultation as well as safety council director at the bedside. Patient extremely anxious and confused although appears improved from yesterday. Neurology following sporadically with no changes in current treatment plan, awaiting psychiatry to reevaluate the patient and appreciate input and recommendations. Wean FiO2 as tolerated and patient is maintained on 2-4 L with oxygen sa turations of 91%. Patient has been weaning FiO2 as tolerated and continues to take tubing off. Patient being followed by nephrology with stable kidney functions and making urine. Patient does have indwelling [place] catheter and will consider removing. Patient being transition to torsemide per nephrology Patient's heart rate noted to be elevated, chest x-ray ordered as patient was slightly dyspneic on exam and cardiology made aware and was started on Cardizem drip. Cardizem currently on hold and heart rate is rate controlled at this time. Patient was transition to 3 S. due to the Cardizem drip. Patient will need reevaluation with PT/OT therapy for continued weakness and prolonged hospitalization as patient will most likely require ECF. Family feels unsafe to take care of her and care for her at home. They are currently working on guardianship as patient is not deemed capable of making sound medical decisions for herself. Mentation continues to wax and wane each day and is less anxious today. All DRIER ATTENDANT and narcotic agents being held and patient was reevaluated by psychiatry with a djustments to medications and will continue current regimen. Continue safety council director at this time as patient is known to be very impulsive and attempts to get out of the bed very frequently Patient's hemoglobin remains above 9 with no active bleeding noted. Patient evaluated by general surgery and underwent EGD showing antral gastritis with no active bleeding noted. Patient continues with nosebleeds likely secondary to dryness from continued oxygen use. Continue with Afrin as needed Infectious disease following and patient has been placed back on IV antibiotics with concerns of previous dialysis site chest wall cellulitis.. Patient continued on daptomycin. Patient remains afebrile and white count is within normal limits. Repeat CT of the brain is negative for acute process. Neurology following and patient has been unable to receive an MRI given patient's continued restlessness and anxiety Overall prognosis is guarded
[2023-09-20 20:17] LABS: Glucose,Whole Blood 215 mg/dL (70-110)
[2023-09-21 06:31] LABS: Glucose,Whole Blood 70 mg/dL (70-110)
[2023-09-21 07:51] LABS: Anisocytosis Slight; Basophils # (A) 0.1 k/uL (0-0.2); Basophils % (A) 2 %; Eosinophils # (A) 0.2 k/uL (0-0.7); Eosinophils % (A) 4 %; HCT 30.5 % (34.0-46.0); HGB 8.8 gm/dL (11.4-16.0); Hypochromasia Marked; Lymphocytes % (A) 22 %; MCH 27.5 pg (25.0-35.0); MCHC 28.9 g/dL (31.0-37.0); MCV 95.3 fL (80.0-100.0); Mean Platelet Volume 9.4; Monocytes # (A) 0.5 k/uL (0-1.0); Monocytes % (A) 12 %; Neutrophils # (A) 2.4 k/uL (1.3-7.7); Neutrophils % (A) 55 %; Platelet Count 186 k/uL (150-450); Poikilocytosis Slight; RBC 3.21 m/uL (3.80-5.40); RDW 16.7 % (11.5-15.5); WBC 4.4 k/uL (3.8-10.6)
[2023-09-21 08:06] LABS: African American GFR (CKD) 28 (>60 ml/min/1.73 sqM); Anion Gap 5 mmol/L; Blood Urea Nitrogen 51 mg/dL (7-17); Calcium 7.6 mg/dL (8.4-10.2); Carbon Dioxide 27 mmol/L (22-30); Chloride 107 mmol/L (98-107); Glucose 113 mg/dL (74-99); Non-African American GFR(CKD) 24 (>60 ml/min/1.73 sqM); Potassium 4.7 mmol/L (3.5-5.1); Sodium 139 mmol/L (137-145)
--- NOTE | 2023-09-21 09:31 | P.PN ---
Subjective Progress Note Date: 09/21/23 History of Present Illness: The patient is a 57-year-old female with known history of hypertension, hyperl ipidemia, diabetes mellitus as well as a history of coronary disease status post stenting of the RCA and chronic kidney disease who presented with dyspnea and had a cardiopulmonary arrest requiring CPR and mechanical ventilation. She is extubated, complaining of chest wall tenderness post CPR. She continues to be in sinus mechanism and hemodynamically stable. She had some bradycardia earlier and was started on IV dopamine. She is in sinus mechanism with no further bradycardia. Her urinary output has been stable. Her initial echo on presentation showed a preserved systolic function subsequently was found to have cardiomyopathy but that was done shortly after the event. She has a subacute fracture of the medial and lateral malleolus on the right side. August 26: The patient is sedated, she was quite agitated during the night. She had few episodes of sinus bradycardia, brief. She had no evidence of high-grade AV block. Her urinary output is stable. Her blood pressure is under good control without any vasopressors. Her repeat echocardiogram showed a preserved systolic function. She has been evaluated by neurology for possible anoxic encephalopathy. August 1: The patient is awake, confused. In sinus mechanism with no further episodes of high-grade AV block. Her blood pressure is stable. Her urinary output stable. There is no evidence of atrial fibrillation or ventricular ectopic activity. Repeat echocardiogram showed a normal left ventricle systolic function. August 28: The patient is sedated. She was agitated and confused during the night. She had no further episodes of bradycardia arrhythmia. Her blood pressure has been stable. She continues to be intubated. She is undergoing an EEG to evaluate her neurological status. There is no evidence of atrial fibrillation or ventricular tachyarrhythmia. August 29: The patient is more awake continues to have some episodes of confusion. She continues to be in sinus mechanism with no arrhythmia. Her EEG showed some i mprovement. Her urinary output has been good. Her blood pressure is stable and there is no evidence of significant hypotension. September 14, 2023 Seen and examined at bedside this a.m. Patient is confused and is in delirium state. She is needing a sitter to be present to calm her down. Mild volume overload 09/15 Patient has been transferred out of the intensive care unit. She is scheduled for EGD today due to GI bleed and stool for occult blood. Plavix is currently on hold but she has been continued on aspirin 81 mg daily. Patient remains quite confused with sitter at the bedside. Blood pressure 144/76, heart rate 82, pulse ox 90% on room air. Repeat blood work reveals stable hemoglobin of 9.4, BUN 30 creatinine 1.54. She is s/p transfusion of 2 units of packed RBCs. Patient has been picking at her nose and face and there is dried blood around her nose and mouth and both hands. 09/19 Patient has been on the [facility] floor most of this week and cardiology signed off as of 09/17. We have been reconsulted regarding bradycardia. Patient's heart rate was running in the 30s during the night and also today. Sinus rhythm. Patient received metoprolol tartrate 12.5 mg this morning. Patient is asymptomatic. On 09/15, patient underwent EGD that revealed antral gastritis. Pathology positive for mild chronic gastritis. She has not been resumed on DAPT. 09/20 Patient is seen today in follow-up. We have been reconsulted regarding bradycardia. Lopressor has been discontinued but patient did receive it yesterday morning. Heart rates are running between 43 and 62. Blood pressure 122/65, pulse ox 99% on 3 L nasal cannula. Telemetry sinus rhythm at 78 bpm. EKG sinus at 40 bpm. Patient denies lightheadedness or dizziness. Patient remains confused with plant safety engineer at the bedside. Physical Examination: 57-year-old female, awake with some confusion, improved Head: Normocephalic. Eyes: Sclerae nonicteric. Neck: Good carotid upstroke, no bruit, mild elevated jugular venous distention. Lungs: Clear anteriorly Heart: Regular rate and rhythm, S1-S2, no S3, no rub. No murmur. Abdomen: Soft , positive bowel sounds no organomegaly. Extremities: 1+ pitting edema bilateral lower extremity, cast on the right lower extremity Impression: 1. Status post cardiopulmonary arrest, etiology unclear. No clear evidence of acute ischemic event. 2. Status post stenting of the RCA during prior admission, May 2023 3. Chronic kidney disease 4. Chest wall discomfort, stable 5. History of hyperlipidemia 6. History of hypertension 7. Bradycardia resolved 8. History of diabetes 9. Cardiomyopathy resolved 10. Anoxic encephalopathy, postarrest, improving 11. Delirium 12. Right heel wound 13. Black tarry stools, concern of GI bleeding Plan: Continue aspirin and Plavix, no black stools and cleared by general surgery Continue to hold beta-satnam Continue telemetry monitoring Plan for event monitor at the time of discharge Nurse practitioner note has been reviewed, I agree with documented findings and plan of care. Patient was seen and examined. Objective - Vital Signs Vital signs: Vital Signs Temp 97.7 F 09/21/23 04:00 Pulse 43 L 09/21/23 04:00 Resp 18 09/21/23 04:00 BP 122/65 09/21/23 04:00 Pulse Ox 99 09/21/23 04:00 FiO2 3 09/02/23 04:00 Intake & Output 09/20/23 09/21/23 09/21/23 18:59 06:59 18:59 Intake Total 930 Output Total 1000 Balance -70 Intake: Oral 930 Output: Urine 1000 Other: Voiding Method Indwelling Catheter Indwelling Catheter ABP, PAP, CO, CI - Last Documented Arterial Blood Pressure 125/73 - Labs CBC & Chem 7: 09/21/23 06:38 09/21/23 06:38 Labs: Abnormal Lab Results - Last 24 Hours (Table) 09/20/23 09/20/23 09/20/23 Range/Units 16:05 16:27 19:52 RBC (3.80-5.40) m/uL Hgb (11.4-16.0) gm/dL Hct (34.0-46.0) % MCHC (31.0-37.0) g/dL RDW (11.5-15.5) % Chloride 108 H (98-107) mmol/L BUN 44 H (7-17) mg/dL Creatinine 2.03 H (0.52-1.04) mg/dL Glucose 135 H (74-99) mg/dL POC Glucose (mg/dL) 152 H 215 H (70-110) mg/dL Calcium 7.3 L (8.4-10.2) mg/dL 09/21/23 Range/Units 06:38 RBC 3.21 L (3.80-5.40) m/uL Hgb 8.8 L (11.4-16.0) gm/dL Hct 30.5 L (34.0-46.0) % MCHC 28.9 L (31.0-37.0) g/dL RDW 16.7 H (11.5-15.5) % Chloride (98-107) mmol/L BUN (7-17) mg/dL Creatinine (0.52-1.04) mg/dL Glucose (74-99) mg/dL POC Glucose (mg/dL) (70-110) mg/dL Calcium (8.4-10.2) mg/dL
--- NOTE | 2023-09-21 10:54 | P.PN ---
Subjective Patient is seen in follow-up for acute kidney injury. Renal function worse in the last 2 days. Has [place] catheter. Nonoliguric. Oral intake fair. Vital signs are stable. General: Agitated and restless. HEENT: On nasal cannula. LUNGS: No audible rhonchi or wheezes. HEART: Rate and Rhythm are regular. ABDOMEN: No distention. EXTREMITITES: Trace edema. Objective - Vital Signs Vital signs: Vital Signs Temp 97.5 F L 09/21/23 08:00 Pulse 79 09/21/23 08:00 Resp 18 09/21/23 08:00 BP 161/82 09/21/23 08:00 Pulse Ox 96 09/21/23 08:00 FiO2 3 09/02/23 04:00 Intake & Output 09/20/23 09/21/23 09/21/23 18:59 06:59 18:59 Intake Total 930 600 Output Total 1000 Balance -70 600 Intake: Oral 930 600 Output: Urine 1000 Other: Voiding Method Indwelling Catheter Indwelling Catheter Indwelling Catheter ABP, PAP, CO, CI - Last Documented Arterial Blood Pressure 125/73 - Labs CBC & Chem 7: 09/21/23 06:38 09/21/23 06:38 Labs: Abnormal Lab Results - Last 24 Hours (Table) 09/20/23 09/20/23 09/20/23 Range/Units 16:05 16:27 19:52 RBC (3.80-5.40) m/uL Hgb (11.4-16.0) gm/dL Hct (34.0-46.0) % MCHC (31.0-37.0) g/dL RDW (11.5-15.5) % Chloride 108 H (98-107) mmol/L BUN 44 H (7-17) mg/dL Creatinine 2.03 H (0.52-1.04) mg/dL Glucose 135 H (74-99) mg/dL POC Glucose (mg/dL) 152 H 215 H (70-110) mg/dL Calcium 7.3 L (8.4-10.2) mg/dL 09/21/23 09/21/23 Range/Units 06:38 06:38 RBC 3.21 L (3.80-5.40) m/uL Hgb 8.8 L (11.4-16.0) gm/dL Hct 30.5 L (34.0-46.0) % MCHC 28.9 L (31.0-37.0) g/dL RDW 16.7 H (11.5-15.5) % Chloride (98-107) mmol/L BUN 51 H (7-17) mg/dL Creatinine 2.18 H (0.52-1.04) mg/dL Glucose 113 H (74-99) mg/dL POC Glucose (mg/dL) (70-110) mg/dL Calcium 7.6 L (8.4-10.2) mg/dL Assessment and Plan Plan: Assessment: 1. Acute kidney injury on chronic kidney disease secondary to ATN secondary to cardiorenal syndrome and cardiac arrest. Renal function worsened the last 2 days. Creatinine 2.18 today. Patient was on hemodialysis in the past with last treatment being July 02, 2023. 2. Volume overload. Improved with diuresis. 3. Acute on chronic diastolic CHF. 4. Diabetes mellitus. 5. Right foot wound. 6. Coronary disease with cardiac stenting. 7. Status post PEA arrest with concern for anoxic encephalopathy. 8. Septic shock with urine culture positive for E. coli and catheter tip culture positive for Corynebacterium. On antibiotics. Off vasopressors. 9. Metabolic acidosis secondary to acute kidney injury and IV fluids. Improved. 10. Anemia. Iron deficiency noted. Status post IV iron. On Aranesp. Also received blood transfusion this admission. 11. Hypernatremia from lack of oral water intake and free water diuresis. Status post D5W. Improved. Plan: Maintain torsemide for now. Will hold if renal function further worsens. Encouraged oral intake, including free water. Avoid nephrotoxins. Continue to monitor renal function and urine output. Repeat chest x-ray.
[2023-09-21 11:15] LABS: Glucose,Whole Blood 233 mg/dL (70-110)
--- NOTE | 2023-09-21 11:18 | XR ---
EXAMINATION TYPE: XR chest 1V DATE OF EXAM: 09/21/2023 COMPARISON: 09/18/2023 INDICATION: Short of breath TECHNIQUE: Single frontal view of the chest is obtained. FINDINGS: The heart size is enlarged. The pulmonary vasculature is normal. This appears diminished from comparison. The lungs are clear. IMPRESSION: 1. Cardiomegaly.
--- NOTE | 2023-09-21 13:23 | P.PN ---
Subjective Progress Note Date: 09/21/23 Principal diagnosis: Reason for follow-up is right heel diabetic foot ulcer Patient is a 57-year-old female with a past medical history significant for diabetes mellitus hypertension hyperlipidemia history of renal insufficiency requiring dialysis currently not on dialysis and the patient also have a chronic nonhealing wound to the right heel area, present to the hospital with increasing shortness of breath and swelling concerning for fluid overload.Patient did have a cardiac arrest around 4 AM 08/23/2023 with the patient went into asystole got resuscitated intubated and transferred to the ICU subsequently have another cardiac arrest with PEA rhythm not resuscitated. On today's evaluation that is 09/21/2023,the patient remains to be afebrile, patient is on 3 L nasal cannula supplemental oxygen and denies any shortness of breath no chest pain or cough.Patient denies having any nausea or vomiting, no abdominal pain and no diarrhea has been reported, no pain or drainage to the right chest wall. Patient did have white count of 4.4 creatinine is 2.18 Objective - Vital Signs Vital signs: Vital Signs Temp 97.7 F 09/21/23 04:00 Pulse 43 L 09/21/23 04:00 Resp 18 09/21/23 04:00 BP 122/65 09/21/23 04:00 Pulse Ox 99 09/21/23 04:00 FiO2 3 09/02/23 04:00 Intake & Output 09/20/23 09/21/23 09/21/23 18:59 06:59 18:59 Intake Total 930 Output Total 1000 Balance -70 Intake: Oral 930 Output: Urine 1000 Other: Voiding Method Indwelling Catheter Indwelling Catheter ABP, PAP, CO, CI - Last Documented Arterial Blood Pressure 125/73 - Exam GENERAL DESCRIPTION: Middle-aged female lying in bed in no distress RESPIRATORY SYSTEM: Unlabored breathing , decreased breath sounds at bases HEART: S1 S2 regular rate and rhythm , right chest wall wound is drying out no drainage ABDOMEN: Soft , no tenderness EXTREMITIES: Right heel wound is currently dressed no drainage Exam completed with the help of SENIOR DESIGN ENGINEERING SPECIALIST - Labs CBC & Chem 7: 09/21/23 06:38 09/21/23 06:38 Labs: Abnormal Lab Results - Last 24 Hours (Table) 09/20/23 09/20/23 09/20/23 Range/Units 16:05 16:27 19:52 Chloride 108 H (98-107) mmol/L BUN 44 H (7-17) mg/dL Creatinine 2.03 H (0.52-1.04) mg/dL Glucose 135 H (74-99) mg/dL POC Glucose (mg/dL) 152 H 215 H (70-110) mg/dL Calcium 7.3 L (8.4-10.2) mg/dL Assessment and Plan (1) Pressure ulcer of right heel, stage 3 Current Visit: No Status: Acute Code(s): L89.613 - PRESSURE ULCER OF RIGHT HEEL, STAGE 3 SNOMED Code(s): 84014690374002 (2) Type 2 diabetes mellitus with foot ulcer Current Visit: No Status: Acute Code(s): E11.621 - TYPE 2 DIABETES MELLITUS WITH FOOT ULCER; L97.509 - NON-PRESSURE CHRONIC ULCER OTH PRT UNSP FOOT W UNSP SEVERITY SNOMED Code(s): 861463573 (3) UTI (urinary tract infection) Current Visit: Yes Status: Acute Code(s): N39.0 - URINARY TRACT INFECTION, SITE NOT SPECIFIED SNOMED Code(s): 61275064 (4) Aspiration pneumonia Current Visit: Yes Status: Acute Code(s): J69.0 - PNEUMONITIS DUE TO INHALATION OF FOOD AND VOMIT SNOMED Code(s): 187602927 Plan: 1patient with chronic nonhealing wound to the right heel area which has been there for a couple of months now patient overall wound base looks clean with no slough tissue in the wound base, patient to continue local wound care with Aquacel silver dressing change every 48 hours 2-patient did have cellulitis to the left chest wall site of previous dialysis catheter insertion and some purulent drainage reported by nursing staff, redness to the right chest wall has decreased no purulent drainage 3-patient to continue with daptomycin while inpatient Dictation was produced using [employer] dictation software. please excuse any grammatical, word or spelling errors.
--- NOTE | 2023-09-21 13:34 | P.PN ---
Subjective Progress Note Date: 09/21/23 On today's evaluation of 09/16/2023, mental status is still unchanged and the patient continues to have restlessness in bed requiring a sitter at the bedside at all times. No focal neurological deficits. The patient is currently on risperidone 2 mg p.o. twice a day and the patient is also on Requip 1 mg at bedtime. No significant respiratory distress. The patient is currently on room air oxygen with a pulse ox of 90%. There is also suspicion for a GI bleed. The patient's hemoglobin is currently at 9.4 with a white cell count of 4.8. BUN is at 30 with a creatinine of 1.45 and a sodium level of 141. The patient is to undergo an EGD today regarding workup for GI bleeding. On today's evaluation of 09/17/2023, the patient seems to be calm and comfortable without any significant restlessness or agitation. She is answering questions appropriately and she seems to be quite responsive at this point in time. Noted EGD was done yesterday and there was no indication for any acute bleeding and t he patient's hemoglobin has remained stable. No fever. No chills. The white cell count today is at 5.5 with a hemoglobin 9.2 and a platelet count of 272. Electrolytes are normal. BUN is at 25 with a creatinine of 1.5 consistent with chronic kidney disease and the creatinine has been stable. LFTs are also within normal limits. Stool for C. difficile has been negative. The patient remains on risperidone 2 mg p.o. twice daily and the patient is also on Requip. No other significant events overnight. Sitter remains at the bedside. Infectious disease continues to follow-up this patient. Patient is being treated with broad-spectrum antibiotics. The patient has a chronic right heel wound in addition to an area of cellulitis at the site of the previously inserted dialysis catheter and the patient continues to be on daptomycin. 09/18/2023, patient is again restless. At times, she is still getting confused. As such, despite some limited improvement in her mentation yesterday, she is still having episodes of confusion and restlessness and she is requiring a sitter at bedside. This has prevented us from transferring care to a ECF/LTAC facility. Will consult again with neurology/psychiatry. She is on Risperdal. White cell count is 4.7 hemoglobin is 8.8 and platelet count of 245. Creatinine is stable at 1.6 and a BUN of 27. Electrolytes are all within normal limits. She is currently on 2 L with a pulse ox of 96%. No respiratory distress. On 09/19/2023, the patient is being seen for a follow-up. No major change in condition. This morning she is comfortable and quiet and the sister at the bedside. Labs were reviewed. Creatinine stable at 1.35 with a sodium level of 140. White cell count is 4.7 with a hemoglobin of 9. No new complaints. Medication remains unchanged. Remains on aspirin 2 mg twice a day and Requip for increased restlessness. Remains on daptomycin. Remains on torsemide 20 mg p.o. daily. The heart rate is under better control. The patient is currently on metoprolol 12.5 mg p.o. twice a day. She is off the Cardizem drip. She remains on Plavix. On 09/20/2023, no new complaints and the patient's condition essentially unchanged. Sitter at the bedside. She is ambulating. Medication remains unchanged. Clinically stable. Hemodynamically stable. Labs have been stable and the patient has demonstrated stable renal function. No shortness of breath. She remains on oxygen and she is on 3 L/min nasal cannula for now. Pulse ox in order of 99 to 100%. No new labs are available from today. On today's evaluation of 09/21/2023, the patient seems to be more comfortable compared to yesterday. Mobility is limited because of her ankle fracture. No new complaints otherwise. Remains on oxygen at 3 L with a pulse ox of 97%. Sitter is at bedside. No change in medications. No new labs from today. No other significant events overnight. Remains on broad-spectrum antibiotic coverage. Remains on a combination of risperidone and Requip. Remains on Demadex 20 mg p.o. per day. Renal function has remained stable. Objective - Vital Signs Vital signs: Vital Signs Temp 97.5 F L 09/21/23 08:00 Pulse 79 09/21/23 08:00 Resp 18 09/21/23 08:00 BP 161/82 09/21/23 08:00 Pulse Ox 96 09/21/23 08:00 FiO2 3 09/02/23 04:00 Intake & Output 09/20/23 09/21/2309/20/24 18:59 06:59 18:59 Intake Total 930 600 Output Total 1000 Balance -70 600 Intake: Oral 930 600 Output: Urine 1000 Other: Voiding Method Indwelling Catheter Indwelling Catheter Indwelling Catheter ABP, PAP, CO, CI - Last Documented Arterial Blood Pressure 125/73 - Exam No acute distress, calm and comfortable on 2 L of oxygen by nasal cannula. Head exam was generally normal. There was no scleral icterus or corneal arcus. Mucous membranes were moist. HEENT examination is grossly unremarkable. Neck supple. Full range of motion. No adenopathy thyromegaly or neck vein distention. Cardiovascular examination reveals regular rhythm rate. S1-S2 normal. No S3 or S4. No discernible murmur noted. Heart sounds are distant. Lungs reveal scattered bilateral rhonchi. No wheezes or crackles. Breath sounds equal bilaterally. Abdomen soft without bowel sounds. Extremities are intact. No cyanosis clubbing or edema. The patient has a soft splint in her right lower extremity. Pulses are diminished at the present in all 4 extremities. Skin is without rash or lesion. Stage III nonhealing heel ulcer in the right lower extremity. Neurologic examination No focal neurological deficits. Pupils are equal reactive to light. Fluctuating mental status with restlessness and episodes of confusion. - Labs CBC & Chem 7: 09/21/23 06:38 09/21/23 06:38 Labs: Abnormal Lab Results - Last 24 Hours (Table) 09/20/23 09/20/23 09/20/23 Range/Units 16:05 16:27 19:52 RBC (3.80-5.40) m/uL Hgb (11.4-16.0) gm/dL Hct (34.0-46.0) % MCHC (31.0-37.0) g/dL RDW (11.5-15.5) % Chloride 108 H (98-107) mmol/L BUN 44 H (7-17) mg/dL Creatinine 2.03 H (0.52-1.04) mg/dL Glucose 135 H (74-99) mg/dL POC Glucose (mg/dL) 152 H 215 H (70-110) mg/dL Calcium 7.3 L (8.4-10.2) mg/dL 09/21/23 09/21/23 Range/Units 06:38 06:38 RBC 3.21 L (3.80-5.40) m/uL Hgb 8.8 L (11.4-16.0) gm/dL Hct 30.5 L (34.0-46.0) % MCHC 28.9 L (31.0-37.0) g/dL RDW 16.7 H (11.5-15.5) % Chloride (98-107) mmol/L BUN 51 H (7-17) mg/dL Creatinine 2.18 H (0.52-1.04) mg/dL Glucose 113 H (74-99) mg/dL POC Glucose (mg/dL) (70-110) mg/dL Calcium 7.6 L (8.4-10.2) mg/dL Assessment and Plan Plan: Cardiopulmonary arrest, x 2, with cardiopulmonary resuscitation, and return of spontaneous circulation on 08/23/23. Acute hypoxic respiratory failure, postcardiac arrest. The patient currently on 3 L of O2 nasal cannula, S/P intubation, and mechanical ventilation, secondary to cardiopulmonary arrest, August 23, 2023. She was extubated on 08/25/23. Encephalopathy, multifactorial, suspect post anoxic encephalopathy and cardiac arrest. Currently on risperidone and Requip for ongoing restlessness and encephalopathy. Patient is currently on risperidone 2 mg p.o. twice daily. History of congestive heart failure (HFPEF) Coronary artery disease/cardiomyopathy and the patient is post non-ST segment elevation myocardial infarction. Stage III chronic kidney disease. Right heel pressure ulcer, stage III. Subacute fracture of the medial and lateral malleolus. History of hypertension. History of hyperlipidemia. History of type 2 diabetes mellitus. History of severe pulmonary hypertension. History of COPD. History of peripheral neuropathy. Chest wall pain related to CPR. Plan: Continue same medications Discharge planning is in progress still requiring sitter for close monitoring No changes in condition and patient remains on 3 days of O2 nasal cannula. This should be weaned off and the patient is ambulating using the incentive spirometer. Continue risperidone Continue Requip Continue same medication EGD was noted and there is no evidence of any upper GI source of bleeding and it showed some mild antral gastritis and hemoglobin stable for now Monitor hemoglobin ID to manage the antibiotics and the patient is still on daptomycin Will continue to follow
--- NOTE | 2023-09-21 15:12 | P.PN ---
Subjective Progress Note Date: 09/21/23 Patient seen and evaluated at bedside. No complaints of GI bleed. Objective - Vital Signs Vital signs: Vital Signs Temp 97.6 F 09/21/23 12:00 Pulse 83 09/21/23 12:00 Resp 16 09/21/23 12:00 BP 129/86 09/21/23 12:00 Pulse Ox 97 09/21/23 12:00 FiO2 3 09/02/23 04:00 Intake & Output 09/20/23 09/21/23 09/21/23 18:59 06:59 18:59 Intake Total 930 1080 Output Total 1000 Balance -70 1080 Intake: Oral 930 1080 Output: Urine 1000 Other: Voiding Method Indwelling Catheter Indwelling Catheter Indwelling Catheter ABP, PAP, CO, CI - Last Documented Arterial Blood Pressure 125/73 - Exam gen: nad cv: rrr pul: non labored abd; soft,non distended, non tender to palpation - Labs CBC & Chem 7: 09/21/23 06:38 09/21/23 06:38 Labs: Abnormal Lab Results - Last 24 Hours (Table) 09/20/23 09/20/23 09/20/23 Range/Units 16:05 16:27 19:52 RBC (3.80-5.40) m/uL Hgb (11.4-16.0) gm/dL Hct (34.0-46.0) % MCHC (31.0-37.0) g/dL RDW (11.5-15.5) % Chloride 108 H (98-107) mmol/L BUN 44 H (7-17) mg/dL Creatinine 2.03 H (0.52-1.04) mg/dL Glucose 135 H (74-99) mg/dL POC Glucose (mg/dL) 152 H 215 H (70-110) mg/dL Calcium 7.3 L (8.4-10.2) mg/dL 09/21/23 09/21/23 09/21/23 Range/Units 06:38 06:38 11:14 RBC 3.21 L (3.80-5.40) m/uL Hgb 8.8 L (11.4-16.0) gm/dL Hct 30.5 L (34.0-46.0) % MCHC 28.9 L (31.0-37.0) g/dL RDW 16.7 H (11.5-15.5) % Chloride (98-107) mmol/L BUN 51 H (7-17) mg/dL Creatinine 2.18 H (0.52-1.04) mg/dL Glucose 113 H (74-99) mg/dL POC Glucose (mg/dL) 233 H (70-110) mg/dL Calcium 7.6 L (8.4-10.2) mg/dL Assessment and Plan Assessment: 58 yo female w/ suspected gi bleed -likely resolved -hgb stable -no intervention
[2023-09-21 16:14] LABS: Glucose,Whole Blood 169 mg/dL (70-110)
--- NOTE | 2023-09-21 16:45 | P.PN ---
Subjective Progress Note Date: 09/21/23 57-year-old female came in with complaints of shortness of breath and orthopnea found to be in congestive heart failure exacerbation patient has congestive heart failure with reduced ejection fraction in the past patient has increasing pedal edema. Patient also has an ulcer in the right foot stage III-IV which appeared to be infected we will consult wound care and infectious disease. Patient was on hemodialysis during last hospitalization her creatinine presently is 1.5 which is significantly improved patient potassium is 5.5, patient is on Entresto and Aldactone Aldactone will be held Entresto will be continued since she is receiving IV Lasix and expecting her potassium to improve if it does not improve or get worse then Entresto need to be discontinued as well. Patient has hypervolemic hyponatremia and hyperglycemia. 09/21/2023 --the patient seems to be more comfortable compared to yesterday. Mobility is limited because of her ankle fracture. No new complaints otherwise. Remains on oxygen at 3 L with a pulse ox of 97%. Sitter is at bedside. No change in medications. No new labs from today. No other significant events overnight. Remains on broad-spectrum antibiotic coverage. Remains on a combination of risperidone and Requip. Remains on Demadex 20 mg p.o. per day. Renal function has remained stable. Patient is planned to be discharged to [facility] once clinically stable; case management on board and making discharge arrangements --Patient continues to require a sitter at bedside; can be transferred to skilled rehab if stable without sitter for 24 hours Objective - Vital Signs Vital signs: Vital Signs Temp 97.5 F L 09/21/23 08:00 Pulse 79 09/21/23 08:00 Resp 18 09/21/23 08:00 BP 161/82 09/21/23 08:00 Pulse Ox 96 09/21/23 08:00 FiO2 3 09/02/23 04:00 Intake & Output 09/20/23 09/21/23 09/21/23 18:59 06:59 18:59 Intake Total 930 600 Output Total 1000 Balance -70 600 Intake: Oral 930 600 Output: Urine 1000 Other: Voiding Method Indwelling Catheter Indwelling Catheter Indwelling Catheter ABP, PAP, CO, CI - Last Documented Arterial Blood Pressure 125/73 - Exam GENERAL: The patient is on nasal cannula, awake alert and oriented x 2, slightly less anxious today, elderly appearing, unkempt, ill-appearing HEENT: Pupils are round and equally reacting to light. EOMI. CARDIOVASCULAR: S1 and S2 muffled PULMONARY: Decreased breath sounds bilaterally with some scattered rhonchi noted ABDOMEN: Soft, nontender, nondistended, normoactive bowel sounds. No palpable organomegaly. MUSCULOSKELETAL: No joint swelling or deformity. EXTREMITIES: Right lower extremity bandage with partial cast noted NEUROLOGICAL: pupils reactive, extremely anxious and confused today SKIN: Patient has right plantar surface ulcer on the posterior foot stage III-IV with areas of necrotic tissue. Casting and Tam wrap noted of the right lower extremity - Labs CBC & Chem 7: 09/21/23 06:38 09/21/23 06:38 Labs: Abnormal Lab Results - Last 24 Hours (Table) 09/20/23 09/20/23 09/20/23 Range/Units 16:05 16:27 19:52 RBC (3.80-5.40) m/uL Hgb (11.4-16.0) gm/dL Hct (34.0-46.0) % MCHC (31.0-37.0) g/dL RDW (11.5-15.5) % Chloride 108 H (98-107) mmol/L BUN 44 H (7-17) mg/dL Creatinine 2.03 H (0.52-1.04) mg/dL Glucose 135 H (74-99) mg/dL POC Glucose (mg/dL) 152 H 215 H (70-110) mg/dL Calcium 7.3 L (8.4-10.2) mg/dL 09/21/23 09/21/23 Range/Units 06:38 06:38 RBC 3.21 L (3.80-5.40) m/uL Hgb 8.8 L (11.4-16.0) gm/dL Hct 30.5 L (34.0-46.0) % MCHC 28.9 L (31.0-37.0) g/dL RDW 16.7 H (11.5-15.5) % Chloride (98-107) mmol/L BUN 51 H (7-17) mg/dL Creatinine 2.18 H (0.52-1.04) mg/dL Glucose 113 H (74-99) mg/dL POC Glucose (mg/dL) (70-110) mg/dL Calcium 7.6 L (8.4-10.2) mg/dL Assessment and Plan Assessment: Asystole/cardiopulmonary arrest x 2 with CPR/ROSC, unknown etiology Respiratory failure requiring intubation s/p extubation 08/25/2023 Concerns for chest wall cellulitis near the previous dialysis site, continued on daptomycin with ID following Large black stools, concern for GI bleed, ruled out, EGD showed antral gastritis Acute metabolic encephalopathy with concerns of anoxia, status postcardiac arrest Congestive heart failure with systolic dysfunction acute on chronic exacerbation Acute hypoxic respiratory failure secondary to CHF Ischemic cardiomyopathy with improved EF Acute kidney injury secondary to ATN on chronic kidney disease stage III Urinary tract infection with E. coli Subacute fracture of the medial and lateral malleolus, orthopedics following with no plans of immediate surgical intervention at this time Right heel stage III pressure injury continue local wound care with aquacel ID following. Genital lesions, will need head operator sulfide follow up outpatient for routine screenings Hypertension Hyperlipidemia Type 2 diabetes mellitus uncontrolled hgb a1c 12.1 Severe pulmonary hypertension COPD without any acute exacerbation Peripheral neuropathy GI prophylaxis DVT prophylaxis Full code Plan: Patient being followed by multiple medical consultation as well as product safety specialist at the bedside. Patient extremely anxious and confused although appears improved from yesterday. Neurology following sporadically with no changes in current treatment plan, awaiting psychiatry to reevaluate the patient and appreciate input and recommendations. Wean FiO2 as tolerated and patient is maintained on 2-4 L with oxygen saturations of 91%. Patient has been weaning FiO2 as tolerated and continues to take tubing off. Patient being followed by nephrology with stable kidney functions and making urine. Patient does have indwelling Hays catheter and will consider removing. Patient being transition to torsemide per nephrology Patient's heart rate noted to be elevated, chest x-ray ordered as patient was slightly dyspneic on exam and cardiology made aware and was started on Cardizem drip. Cardizem currently on hold and heart rate is rate controlled at this time. Patient was transition to 3 S. due to the Cardizem drip. Patient will need reevaluation with PT/OT therapy for continued weakness and prolonged hospitalization as patient will most likely require ECF. Family feels unsafe to take care of her and care for her at home. They are currently working on guardianship as patient is not deemed capable of making sound medical decisions for herself. Mentation continues to wax and wane each day and is less anxious today. All TOLL TICKET CLERK and narcotic agents being held and patient was reevaluated by psychiatry with adjustments to medications and will continue current regimen. Continue product safety specialist at this time as patient is known to be very impulsive and attempts to get out of the bed very frequently Patient's hemoglobin remains above 9 with no active bleeding noted. Patient evaluated by general surgery and underwent EGD showing antral gastritis with no active bleeding noted. Patient continues with nosebleeds likely secondary to dryness from continued oxygen use. Continue with Afrin as needed Infectious disease following and patient has been placed back on IV antibiotics with concerns of previous dialysis site chest wall cellulitis.. Patient continued on daptomycin. Patient remains afebrile and white count is within normal limits. Repeat CT of the brain is negative for acute process. Neurology following and patient has been unable to receive an MRI given patient's continued restlessness and anxiety Overall prognosis is guarded
[2023-09-21 19:56] LABS: Glucose,Whole Blood 167 mg/dL (70-110)
[2023-09-21 22:57] LABS: Glucose,Whole Blood 174 mg/dL (70-110)
[2023-09-22 06:02] LABS: Glucose,Whole Blood 205 mg/dL (70-110)
[2023-09-22 07:57] LABS: Anisocytosis Slight; Basophils # (A) 0.1 k/uL (0-0.2); Basophils % (A) 1 %; Eosinophils # (A) 0.4 k/uL (0-0.7); Eosinophils % (A) 5 %; HCT 30.7 % (34.0-46.0); HGB 9.2 gm/dL (11.4-16.0); Hypochromasia Marked; Lymphocytes # (A) 0.9 k/uL (1.0-4.8); Lymphocytes % (A) 11 %; MCH 28.3 pg (25.0-35.0); MCHC 29.9 g/dL (31.0-37.0); MCV 94.6 fL (80.0-100.0); Monocytes # (A) 0.6 k/uL (0-1.0); Monocytes % (A) 7 %; Neutrophils # (A) 5.7 k/uL (1.3-7.7); Neutrophils % (A) 74 %; Platelet Count 245 k/uL (150-450); Poikilocytosis Slight; RBC 3.25 m/uL (3.80-5.40); RDW 16.5 % (11.5-15.5); WBC 7.8 k/uL (3.8-10.6)
[2023-09-22 08:13] LABS: African American GFR (CKD) 31 (>60 ml/min/1.73 sqM); Anion Gap 5 mmol/L; Blood Urea Nitrogen 52 mg/dL (7-17); Carbon Dioxide 29 mmol/L (22-30); Chloride 108 mmol/L (98-107); Glucose 163 mg/dL (74-99); Magnesium 1.9 mg/dL (1.6-2.3); Non-African American GFR(CKD) 26 (>60 ml/min/1.73 sqM); Potassium 4.6 mmol/L (3.5-5.1); Sodium 142 mmol/L (137-145)
--- NOTE | 2023-09-22 10:06 | P.PN ---
Subjective Patient is seen in follow-up for acute kidney injury. Renal function stable. Has Hays catheter. Nonoliguric. Oral intake fair. Vital signs are stable. General: Agitated and restless. HEENT: On nasal cannula. LUNGS: No audible rhonchi or wheezes. HEART: Rate and Rhythm are regular. ABDOMEN: No distention. EXTREMITITES: Trace edema. Objective - Vital Signs Vital signs: Vital Signs Temp 97.4 F L 09/22/23 08:00 Pulse 89 09/22/23 08:00 Resp 16 09/22/23 08:00 BP 172/84 09/22/23 08:00 Pulse Ox 97 09/22/23 08:00 FiO2 3 09/02/23 04:00 Intake & Output 09/21/23 09/22/23 09/22/23 18:59 06:59 18:59 Intake Total 2280 10 490 Output Total 800 700 Balance 1480 -690 490 Intake: IV 10 10 Invasive Line 10 10 10 Oral 2280 480 Output: Urine 800 700 Other: Voiding Method Indwelling Catheter Indwelling Catheter Indwelling Catheter # Bowel Movements 1 ABP, PAP, CO, CI - Last Documented Arterial Blood Pressure 125/73 - Labs CBC & Chem 7: 09/22/23 07:13 09/22/23 07:13 Labs: Abnormal Lab Results - Last 24 Hours (Table) 09/21/23 09/21/23 09/21/23 Range/Units 11:14 16:13 19:54 RBC (3.80-5.40) m/uL Hgb (11.4-16.0) gm/dL Hct (34.0-46.0) % MCHC (31.0-37.0) g/dL RDW (11.5-15.5) % Lymphocytes # (1.0-4.8) k/uL Chloride (98-107) mmol/L BUN (7-17) mg/dL Creatinine (0.52-1.04) mg/dL Glucose (74-99) mg/dL POC Glucose (mg/dL) 233 H 169 H 167 H (70-110) mg/dL Calcium (8.4-10.2) mg/dL 09/21/23 09/22/23 09/22/23 Range/Units 22:56 06:01 07:13 RBC 3.25 L (3.80-5.40) m/uL Hgb 9.2 L (11.4-16.0) gm/dL Hct 30.7 L (34.0-46.0) % MCHC 29.9 L (31.0-37.0) g/dL RDW 16.5 H (11.5-15.5) % Lymphocytes # 0.9 L (1.0-4.8) k/uL Chloride (98-107) mmol/L BUN (7-17) mg/dL Creatinine (0.52-1.04) mg/dL Glucose (74-99) mg/dL POC Glucose (mg/dL) 174 H 205 H (70-110) mg/dL Calcium (8.4-10.2) mg/dL 09/22/23 Range/Units 07:13 RBC (3.80-5.40) m/uL Hgb (11.4-16.0) gm/dL Hct (34.0-46.0) % MCHC (31.0-37.0) g/dL RDW (11.5-15.5) % Lymphocytes # (1.0-4.8) k/uL Chloride 108 H (98-107) mmol/L BUN 52 H (7-17) mg/dL Creatinine 2.02 H (0.52-1.04) mg/dL Glucose 163 H (74-99) mg/dL POC Glucose (mg/dL) (70-110) mg/dL Calcium 8.0 L (8.4-10.2) mg/dL Assessment and Plan Plan: Assessment: 1. Acute kidney injury on chronic kidney disease secondary to ATN secondary to cardiorenal syndrome and cardiac arrest. Renal function worsened the last 2 days. Creatinine stable at 2.02 today. Patient was on hemodialysis in the past with last treatment being July 02, 2023. 2. Volume overload. Improved with diuresis. 3. Acute on chronic diastolic CHF. 4. Diabetes mellitus. 5. Right foot wound. 6. Coronary disease with cardiac stenting. 7. Status post PEA arrest with concern for anoxic encephalopathy. 8. Septic shock with urine culture positive for E. coli and catheter tip culture positive for Corynebacterium. On antibiotics. Off vasopressors. 9. Metabolic acidosis secondary to acute kidney injury and IV fluids. Improved. 10. Anemia. Iron deficiency noted. Status post IV iron. On Aranesp. Also received blood transfusion this admission. 11. Hypernatremia from lack of oral water intake and free water diuresis. Status post D5W. Improved. Plan: Maintain torsemide for now. Will hold if renal function further worsens. Encouraged oral intake. Avoid nephrotoxins. Continue to monitor renal function and urine output.
[2023-09-22] MEDS: amLODIPine 5 MG TAB PO STA (11:34)
[2023-09-22 12:00] LABS: Glucose,Whole Blood 230 mg/dL (70-110)
--- NOTE | 2023-09-22 13:42 | P.PN ---
Subjective Progress Note Date: 09/22/23 History of Present Illness: The patient is a 57-year-old female with known history of hypertension, hyperl ipidemia, diabetes mellitus as well as a history of coronary disease status post stenting of the RCA and chronic kidney disease who presented with dyspnea and had a cardiopulmonary arrest requiring CPR and mechanical ventilation. She is extubated, complaining of chest wall tenderness post CPR. She continues to be in sinus mechanism and hemodynamically stable. She had some bradycardia earlier and was started on IV dopamine. She is in sinus mechanism with no further bradycardia. Her urinary output has been stable. Her initial echo on presentation showed a preserved systolic function subsequently was found to have cardiomyopathy but that was done shortly after the event. She has a subacute fracture of the medial and lateral malleolus on the right side. August 26: The patient is sedated, she was quite agitated during the night. She had few episodes of sinus bradycardia, brief. She had no evidence of high-grade AV block. Her urinary output is stable. Her blood pressure is under good control without any vasopressors. Her repeat echocardiogram showed a preserved systolic function. She has been evaluated by neurology for possible anoxic encephalopathy. August 1: The patient is awake, confused. In sinus mechanism with no further episodes of high-grade AV block. Her blood pressure is stable. Her urinary output stable. There is no evidence of atrial fibrillation or ventricular ectopic activity. Repeat echocardiogram showed a normal left ventricle systolic function. August 28: The patient is sedated. She was agitated and confused during the night. She had no further episodes of bradycardia arrhythmia. Her blood pressure has been stable. She continues to be intubated. She is undergoing an EEG to evaluate her neurological status. There is no evidence of atrial fibrillation or ventricular tachyarrhythmia. August 29: The patient is more awake continues to have some episodes of confusion. She continues to be in sinus mechanism with no arrhythmia. Her EEG showed some i mprovement. Her urinary output has been good. Her blood pressure is stable and there is no evidence of significant hypotension. September 14, 2023 Seen and examined at bedside this a.m. Patient is confused and is in delirium state. She is needing a sitter to be present to calm her down. Mild volume overload 09/15 Patient has been transferred out of the intensive care unit. She is scheduled for EGD today due to GI bleed and stool for occult blood. Plavix is currently on hold but she has been continued on aspirin 81 mg daily. Patient remains quite confused with sitter at the bedside. Blood pressure 144/76, heart rate 82, pulse ox 90% on room air. Repeat blood work reveals stable hemoglobin of 9.4, BUN 30 creatinine 1.54. She is s/p transfusion of 2 units of packed RBCs. Patient has been picking at her nose and face and there is dried blood around her nose and mouth and both hands. 09/19 Patient has been on the [facility] floor most of this week and cardiology signed off as of 09/17. We have been reconsulted regarding bradycardia. Patient's heart rate was running in the 30s during the night and also today. Sinus rhythm. Patient received metoprolol tartrate 12.5 mg this morning. Patient is asymptomatic. On 09/15, patient underwent EGD that revealed antral gastritis. Pathology positive for mild chronic gastritis. She has not been resumed on DAPT. 09/20 Patient is seen today in follow-up. We have been reconsulted regarding bradycardia. Lopressor has been discontinued but patient did receive it yesterday morning. Heart rates are running between 43 and 62. Blood pressure 122/65, pulse ox 99% on 3 L nasal cannula. Telemetry sinus rhythm at 78 bpm. EKG sinus at 40 bpm. Patient denies lightheadedness or dizziness. Patient remains confused with marine safety officer at the bedside. 09/21 Feeling good today, some confusion. No chest pain or pressure. No lightheadedness or dizziness. Hgb 9.2, creat 2.0. Blood pressure not well controlled. Physical Examination: 57-year-old female, awake with some confusion, improved Head: Normocephalic. Eyes: Sclerae nonicteric. Neck: Good carotid upstroke, no bruit, mild elevated jugular venous distention. Lungs: Clear anteriorly Heart: Regular rate and rhythm, S1-S2, no S3, no rub. No murmur. Abdomen: Soft , positive bowel sounds no organomegaly. Extremities: 1+ pitting edema bilateral lower extremity, cast on the right lower extremity Impression: 1. Status post cardiopulmonary arrest, etiology unclear. No clear evidence of acute ischemic event. 2. Status post stenting of the RCA during prior admission, May 2023 3. Chronic kidney disease 4. Chest wall discomfort, stable 5. History of hyperlipidemia 6. History of hypertension 7. Bradycardia resolved 8. History of diabetes 9. Cardiomyopathy resolved 10. Anoxic encephalopathy, postarrest, improving 11. Delirium 12. Right heel wound 13. Black tarry stools, concern of GI bleeding Plan: Add aldactone 25mg for better blood pressure management. Ideally add losartan when kidney function improves. Continue aspirin and Plavix, no black stools and cleared by general surgery Continue to hold beta-satnam Continue telemetry monitoring Plan for event monitor at the time of discharge We will follow. Nurse practitioner note has been reviewed, I agree with documented findings and plan of care. Patient was seen and examined. Objective - Vital Signs Vital signs: Vital Signs Temp 97.5 F L 09/22/23 11:55 Pulse 87 09/22/23 11:55 Resp 17 09/22/23 11:55 BP 159/72 09/22/23 11:55 Pulse Ox 96 09/22/23 11:55 FiO2 3 09/02/23 04:00 Intake & Output 09/21/23 09/22/23 09/22/23 18:59 06:59 18:59 Intake Total 2280 10 490 Output Total 800 700 Balance 1480 -690 490 Intake: IV 10 10 Invasive Line 10 10 10 Oral 2280 480 Output: Urine 800 700 Other: Voiding Method Indwelling Catheter Indwelling Catheter Indwelling Catheter # Bowel Movements 1 ABP, PAP, CO, CI - Last Documented Arterial Blood Pressure 125/73 - Labs CBC & Chem 7: 09/22/23 07:13 09/22/23 07:13 Labs: Abnormal Lab Results - Last 24 Hours (Table) 09/21/23 09/21/23 09/21/23 Range/Units 16:13 19:54 22:56 RBC (3.80-5.40) m/uL Hgb (11.4-16.0) gm/dL Hct (34.0-46.0) % MCHC (31.0-37.0) g/dL RDW (11.5-15.5) % Lymphocytes # (1.0-4.8) k/uL Chloride (98-107) mmol/L BUN (7-17) mg/dL Creatinine (0.52-1.04) mg/dL Glucose (74-99) mg/dL POC Glucose (mg/dL) 169 H 167 H 174 H (70-110) mg/dL Calcium (8.4-10.2) mg/dL 09/22/23 09/22/23 09/22/23 Range/Units 06:01 07:13 07:13 RBC 3.25 L (3.80-5.40) m/uL Hgb 9.2 L (11.4-16.0) gm/dL Hct 30.7 L (34.0-46.0) % MCHC 29.9 L (31.0-37.0) g/dL RDW 16.5 H (11.5-15.5) % Lymphocytes # 0.9 L (1.0-4.8) k/uL Chloride 108 H (98-107) mmol/L BUN 52 H (7-17) mg/dL Creatinine 2.02 H (0.52-1.04) mg/dL Glucose 163 H (74-99) mg/dL POC Glucose (mg/dL) 205 H (70-110) mg/dL Calcium 8.0 L (8.4-10.2) mg/dL 09/22/23 Range/Units 11:58 RBC (3.80-5.40) m/uL Hgb (11.4-16.0) gm/dL Hct (34.0-46.0) % MCHC (31.0-37.0) g/dL RDW (11.5-15.5) % Lymphocytes # (1.0-4.8) k/uL Chloride (98-107) mmol/L BUN (7-17) mg/dL Creatinine (0.52-1.04) mg/dL Glucose (74-99) mg/dL POC Glucose (mg/dL) 230 H (70-110) mg/dL Calcium (8.4-10.2) mg/dL
[2023-09-22] MEDS: SPIRONOLACTONE 25 MG TAB PO SCH (14:33)
--- NOTE | 2023-09-22 14:59 | P.PN ---
Subjective Progress Note Date: 09/22/23 On today's evaluation of 09/16/2023, mental status is still unchanged and the patient continues to have restlessness in bed requiring a sitter at the bedside at all times. No focal neurological deficits. The patient is currently on risperidone 2 mg p.o. twice a day and the patient is also on Requip 1 mg at bedtime. No significant respiratory distress. The patient is currently on room air oxygen with a pulse ox of 90%. There is also suspicion for a GI bleed. The patient's hemoglobin is currently at 9.4 with a white cell count of 4.8. BUN is at 30 with a creatinine of 1.45 and a sodium level of 141. The patient is to undergo an EGD today regarding workup for GI bleeding. On today's evaluation of 09/17/2023, the patient seems to be calm and comfortable without any significant restlessness or agitation. She is answering questions appropriately and she seems to be quite responsive at this point in time. Noted EGD was done yesterday and there was no indication for any acute bleeding and t he patient's hemoglobin has remained stable. No fever. No chills. The white cell count today is at 5.5 with a hemoglobin 9.2 and a platelet count of 272. Electrolytes are normal. BUN is at 25 with a creatinine of 1.5 consistent with chronic kidney disease and the creatinine has been stable. LFTs are also within normal limits. Stool for C. difficile has been negative. The patient remains on risperidone 2 mg p.o. twice daily and the patient is also on Requip. No other significant events overnight. Sitter remains at the bedside. Infectious disease continues to follow-up this patient. Patient is being treated with broad-spectrum antibiotics. The patient has a chronic right heel wound in addition to an area of cellulitis at the site of the previously inserted dialysis catheter and the patient continues to be on daptomycin. 09/18/2023, patient is again restless. At times, she is still getting confused. As such, despite some limited improvement in her mentation yesterday, she is still having episodes of confusion and restlessness and she is requiring a sitter at bedside. This has prevented us from transferring care to a ECF/LTAC facility. Will consult again with neurology/psychiatry. She is on Risperdal. White cell count is 4.7 hemoglobin is 8.8 and platelet count of 245. Creatinine is stable at 1.6 and a BUN of 27. Electrolytes are all within normal limits. She is currently on 2 L with a pulse ox of 96%. No respiratory distress. On 09/19/2023, the patient is being seen for a follow-up. No major change in condition. This morning she is comfortable and quiet and the sister at the bedside. Labs were reviewed. Creatinine stable at 1.35 with a sodium level of 140. White cell count is 4.7 with a hemoglobin of 9. No new complaints. Medication remains unchanged. Remains on aspirin 2 mg twice a day and Requip for increased restlessness. Remains on daptomycin. Remains on torsemide 20 mg p.o. daily. The heart rate is under better control. The patient is currently on metoprolol 12.5 mg p.o. twice a day. She is off the Cardizem drip. She remains on Plavix. On 09/20/2023, no new complaints and the patient's condition essentially unchanged. Sitter at the bedside. She is ambulating. Medication remains unchanged. Clinically stable. Hemodynamically stable. Labs have been stable and the patient has demonstrated stable renal function. No shortness of breath. She remains on oxygen and she is on 3 L/min nasal cannula for now. Pulse ox in order of 99 to 100%. No new labs are available from today. On today's evaluation of 09/21/2023, the patient seems to be more comfortable compared to yesterday. Mobility is limited because of her ankle fracture. No new complaints otherwise. Remains on oxygen at 3 L with a pulse ox of 97%. Sitter is at bedside. No change in medications. No new labs from today. No other significant events overnight. Remains on broad-spectrum antibiotic coverage. Remains on a combination of risperidone and Requip. Remains on Demadex 20 mg p.o. per day. Renal function has remained stable. 09/22/2023, the patient is being seen for a follow-up. She remains on oxygen at 3 L with a pulse ox of 96%. He had a minor fall yesterday as she was trying to get out of bed. Apparently she slept on the floor. No major injuries. No chest pain. No new labs from today. Creatinine from yesterday was at 2.02 with a BUN of 52. Medications are unchanged. Sitter is at the bedside. Chest x-ray from 09/21/2023 showed cardiomegaly. Objective - Vital Signs Vital signs: Vital Signs Temp 97.4 F L 09/22/23 08:00 Pulse 89 09/22/23 08:00 Resp 16 09/22/23 08:00 BP 172/84 09/22/23 08:00 Pulse Ox 97 09/22/23 08:00 FiO2 3 09/02/23 04:00 Intake & Output 09/21/23 09/22/23 09/22/23 18:59 06:59 18:59 Intake Total 2280 10 490 Output Total 800 700 Balance 1480 -690 490 Intake: IV 10 10 Invasive Line 10 10 10 Oral 2280 480 Output: Urine 800 700 Other: Voiding Method Indwelling Catheter Indwelling Catheter Indwelling Catheter # Bowel Movements 1 ABP, PAP, CO, CI - Last Documented Arterial Blood Pressure 125/73 - Exam No acute distress, calm and comfortable on 2 L of oxygen by nasal cannula. Head exam was generally normal. There was no scleral icterus or corneal arcus. Mucous membranes were moist. HEENT examination is grossly unremarkable. Neck supple. Full range of motion. No adenopathy thyromegaly or neck vein distention. Cardiovascular examination reveals regular rhythm rate. S1-S2 normal. No S3 or S4. No discernible murmur noted. Heart sounds are distant. Lungs reveal scattered bilateral rhonchi. No wheezes or crackles. Breath sounds equal bilaterally. Abdomen soft without bowel sounds. Extremities are intact. No cyanosis clubbing or edema. The patient has a soft splint in her right lower extremity. Pulses are diminished at the present in all 4 extremities. Skin is without rash or lesion. Stage III nonhealing heel ulcer in the right lower extremity. Neurologic examination No focal neurological deficits. Pupils are equal reactive to light. Fluctuating mental status with restlessness and episodes of confusion. - Labs CBC & Chem 7: 09/22/23 07:13 09/22/23 07:13 Labs: Abnormal Lab Results - Last 24 Hours (Table) 09/21/23 09/21/23 09/21/23 Range/Units 11:14 16:13 19:54 RBC (3.80-5.40) m/uL Hgb (11.4-16.0) gm/dL Hct (34.0-46.0) % MCHC (31.0-37.0) g/dL RDW (11.5-15.5) % Lymphocytes # (1.0-4.8) k/uL Chloride (98-107) mmol/L BUN (7-17) mg/dL Creatinine (0.52-1.04) mg/dL Glucose (74-99) mg/dL POC Glucose (mg/dL) 233 H 169 H 167 H (70-110) mg/dL Calcium (8.4-10.2) mg/dL 09/21/23 09/22/23 09/22/23 Range/Units 22:56 06:01 07:13 RBC 3.25 L (3.80-5.40) m/uL Hgb 9.2 L (11.4-16.0) gm/dL Hct 30.7 L (34.0-46.0) % MCHC 29.9 L (31.0-37.0) g/dL RDW 16.5 H (11.5-15.5) % Lymphocytes # 0.9 L (1.0-4.8) k/uL Chloride (98-107) mmol/L BUN (7-17) mg/dL Creatinine (0.52-1.04) mg/dL Glucose (74-99) mg/dL POC Glucose (mg/dL) 174 H 205 H (70-110) mg/dL Calcium (8.4-10.2) mg/dL 09/22/23 Range/Units 07:13 RBC (3.80-5.40) m/uL Hgb (11.4-16.0) gm/dL Hct (34.0-46.0) % MCHC (31.0-37.0) g/dL RDW (11.5-15.5) % Lymphocytes # (1.0-4.8) k/uL Chloride 108 H (98-107) mmol/L BUN 52 H (7-17) mg/dL Creatinine 2.02 H (0.52-1.04) mg/dL Glucose 163 H (74-99) mg/dL POC Glucose (mg/dL) (70-110) mg/dL Calcium 8.0 L (8.4-10.2) mg/dL Assessment and Plan Plan: Cardiopulmonary arrest, x 2, with cardiopulmonary resuscitation, and return of spontaneous circulation on 08/23/23. Acute hypoxic respiratory failure, postcardiac arrest. The patient currently on 3 L of O2 nasal cannula, S/P intubation, and mechanical ventilation, secondary to cardiopulmonary arrest, August 23, 2023. She was extubated on 08/25/23. Encephalopathy, multifactorial, suspect post anoxic encephalopathy and cardiac arrest. Currently on risperidone and Requip for ongoing restlessness and encephalopathy. Patient is currently on risperidone 2 mg p.o. twice daily. History of congestive heart failure (HFPEF) Coronary artery disease/cardiomyopathy and the patient is post non-ST segment elevation myocardial infarction. Stage III chronic kidney disease. Right heel pressure ulcer, stage III. Subacute fracture of the medial and lateral malleolus. History of hypertension. History of hyperlipidemia. History of type 2 diabetes mellitus. History of severe pulmonary hypertension. History of COPD. History of peripheral neuropathy. Chest wall pain related to CPR. Plan: Continue same medications, chest x-ray from from 09/21/2023 showed cardiomegaly. Discharge planning is in progress still requiring sitter for close monitoring No changes in condition and patient remains on 3 days of O2 nasal cannula. This should be weaned off and the patient is ambulating using the incentive spirometer. Continue risperidone Continue Requip Continue same medication EGD was noted and there is no evidence of any upper GI source of bleeding and it showed some mild antral gastritis and hemoglobin stable for now Monitor hemoglobin ID to manage the antibiotics and the patient is still on daptomycin Fall precautions Will continue to follow
--- NOTE | 2023-09-22 16:27 | P.PN ---
Subjective Progress Note Date: 09/22/23 57-year-old female came in with complaints of shortness of breath and orthopnea found to be in congestive heart failure exacerbation patient has congestive heart failure with reduced ejection fraction in the past patient has increasing pedal edema. Patient also has an ulcer in the right foot stage III-IV which appeared to be infected we will consult wound care and infectious disease. Patient was on hemodialysis during last hospitalization her creatinine presently is 1.5 which is significantly improved patient potassium is 5.5, patient is on Entresto and Aldactone Aldactone will be held Entresto will be continued since she is receiving IV Lasix and expecting her potassium to improve if it does not improve or get worse then Entresto need to be discontinued as well. Patient has hypervolemic hyponatremia and hyperglycemia. 09/21/2023 --the patient seems to be more comfortable compared to yesterday. Mobility is limited because of her ankle fracture. No new complaints otherwise. Remains on oxygen at 3 L with a pulse ox of 97%. Sitter is at bedside. No change in m edications. No new labs from today. No other significant events overnight. Remains on broad-spectrum antibiotic coverage. Remains on a combination of risperidone and Requip. Remains on Demadex 20 mg p.o. per day. Renal function has remained stable. Patient is planned to be discharged to [facility] once clinically stable; case management on board and making discharge arrangements --Patient continues to require a sitter at bedside; can be transferred to skilled rehab if stable without sitter for 24 hours 09/22/2023 --the patient is seen and evaluated in room at bedside. She remains on oxygen at 3 L with a pulse ox of 96%. He had a minor fall yesterday as she was trying to get out of bed. Apparently she slept on the floor. No major injuries. No chest pain. No new labs from today. Creatinine from yesterday was at 2.02 with a BUN of 52. Medications are unchanged. Sitter is at the bedside. Chest x-ray from 09/21/2023 showed cardiomegaly. -- Patient remains stable on O2 at 2 L per nasal cannula -- Case management on board for plan for patient to be discharged to skilled rehab; patient continues to require sitter; can be discharged to rehab once sitter is discontinued -- Patient remains on IV daptomycin; ID on board Objective - Vital Signs Vital signs: Vital Signs Temp 97.4 F L 09/22/23 08:00 Pulse 89 09/22/23 08:00 Resp 16 09/22/23 08:00 BP 172/84 09/22/23 08:00 Pulse Ox 97 09/22/23 08:00 FiO2 3 09/02/23 04:00 Intake & Output 09/21/23 09/22/23 09/22/23 18:59 06:59 18:59 Intake Total 2280 10 10 Output Total 800 700 Balance 1480 -690 10 Intake: IV 10 10 Invasive Line 10 10 10 Oral 2280 Output: Urine 800 700 Other: Voiding Method Indwelling Catheter Indwelling Catheter Indwelling Catheter # Bowel Movements 1 ABP, PAP, CO, CI - Last Documented Arterial Blood Pressure 125/73 - Exam GENERAL: The patient is on nasal cannula, awake alert and oriented x 2, slightly less anxious today, elderly appearing, unkempt, ill-appearing HEENT: Pupils are round and equally reacting to light. EOMI. CARDIOVASCULAR: S1 and S2 muffled PULMONARY: Decreased breath sounds bilaterally with some scattered rhonchi noted ABDOMEN: Soft, nontender, nondistended, normoactive bowel sounds. No palpable organomegaly. MUSCULOSKELETAL: No joint swelling or deformity. EXTREMITIES: Right lower extremity bandage with partial cast noted NEUROLOGICAL: pupils reactive, extremely anxious and confused today SKIN: Patient has right plantar surface ulcer on the posterior foot stage III-IV with areas of necrotic tissue. Casting and Tam wrap noted of the right lower extremity - Labs CBC & Chem 7: 09/22/23 07:13 09/22/23 07:13 Labs: Abnormal Lab Results - Last 24 Hours (Table) 09/21/23 09/21/23 09/21/23 Range/Units 11:14 16:13 19:54 RBC (3.80-5.40) m/uL Hgb (11.4-16.0) gm/dL Hct (34.0-46.0) % MCHC (31.0-37.0) g/dL RDW (11.5-15.5) % Lymphocytes # (1.0-4.8) k/uL Chloride (98-107) mmol/L BUN (7-17) mg/dL Creatinine (0.52-1.04) mg/dL Glucose (74-99) mg/dL POC Glucose (mg/dL) 233 H 169 H 167 H (70-110) mg/dL Calcium (8.4-10.2) mg/dL 09/21/23 09/22/23 09/22/23 Range/Units 22:56 06:01 07:13 RBC 3.25 L (3.80-5.40) m/uL Hgb 9.2 L (11.4-16.0) gm/dL Hct 30.7 L (34.0-46.0) % MCHC 29.9 L (31.0-37.0) g/dL RDW 16.5 H (11.5-15.5) % Lymphocytes # 0.9 L (1.0-4.8) k/uL Chloride (98-107) mmol/L BUN (7-17) mg/dL Creatinine (0.52-1.04) mg/dL Glucose (74-99) mg/dL POC Glucose (mg/dL) 174 H 205 H (70-110) mg/dL Calcium (8.4-10.2) mg/dL 09/22/23 Range/Units 07:13 RBC (3.80-5.40) m/uL Hgb (11.4-16.0) gm/dL Hct (34.0-46.0) % MCHC (31.0-37.0) g/dL RDW (11.5-15.5) % Lymphocytes # (1.0-4.8) k/uL Chloride 108 H (98-107) mmol/L BUN 52 H (7-17) mg/dL Creatinine 2.02 H (0.52-1.04) mg/dL Glucose 163 H (74-99) mg/dL POC Glucose (mg/dL) (70-110) mg/dL Calcium 8.0 L (8.4-10.2) mg/dL Assessment and Plan Assessment: Asystole/cardiopulmonary arrest x 2 with CPR/ROSC, unknown etiology Respiratory failure requiring intubation s/p extubation 08/25/2023 Concerns for chest wall cellulitis near the previous dialysis site, continued on daptomycin with ID following Large black stools, concern for GI bleed, ruled out, EGD showed antral gastritis Acute metabolic encephalopathy with concerns of anoxia, status postcardiac arrest Congestive heart failure with systolic dysfunction acute on chronic exacerbation Acute hypoxic respiratory failure secondary to CHF Ischemic cardiomyopathy with improved EF Acute kidney injury secondary to ATN on chronic kidney disease stage III Urinary tract infection with E. coli Subacute fracture of the medial and lateral malleolus, orthopedics following with no plans of immediate surgical intervention at this time Right heel stage III pressure injury continue local wound care with aquacel ID following. Genital lesions, will need helicopter specialist follow up outpatient for routine screenings Hypertension Hyperlipidemia Type 2 diabetes mellitus uncontrolled hgb a1c 12.1 Severe pulmonary hypertension COPD without any acute exacerbation Peripheral neuropathy GI prophylaxis DVT prophylaxis Full code Plan: Patient being followed by multiple medical consultation as well as director of patient safety at the bedside. Patient extremely anxious and confused although appears improved from yesterday. Neurology following sporadically with no changes in current treatment plan, awaiting psychiatry to reevaluate the patient and ap preciate input and recommendations. Wean FiO2 as tolerated and patient is maintained on 2-4 L with oxygen saturations of 91%. Patient has been weaning FiO2 as tolerated and continues to take tubing off. Patient being followed by nephrology with stable kidney functions and making urine. Patient does have indwelling Hays catheter and will consider removing. Patient being transition to torsemide per nephrology Patient's heart rate noted to be elevated, chest x-ray ordered as patient was slightly dyspneic on exam and cardiology made aware and was started on Cardizem drip. Cardizem currently on hold and heart rate is rate controlled at this time. Patient was transition to 3 S. due to the Cardizem drip. Patient will need reevaluation with PT/OT therapy for continued weakness and prolonged hospitalization as patient will most likely require ECF. Family feels unsafe to take care of her and care for her at home. They are currently working on guardianship as patient is not deemed capable of making sound medical decisions for herself. Mentation continues to wax and wane each day and is less anxious today. All [employer] and narcotic agents being held and patient was reevaluated by psychiatry with adjustments to medications and will continue current regimen. Continue director of patient safety at this time as patient is known to be very impulsive and attempts to get out of the bed very frequently Patient's hemoglobin remains above 9 with no active bleeding noted. Patient evaluated by general surgery and underwent EGD showing antral gastritis with no active bleeding noted. Patient continues with nosebleeds likely secondary to dryness from continued oxygen use. Continue with Afrin as needed Infectious disease following and patient has been placed back on IV antibiotics with concerns of previous dialysis site chest wall cellulitis.. Patient continued on daptomycin. Patient remains afebrile and white count is within normal limits. Repeat CT of the brain is negative for acute process. Neurology following and patient has been unable to receive an MRI given patient's continued restlessness and anxiety Overall prognosis is guarded
[2023-09-22 16:47] LABS: Glucose,Whole Blood 225 mg/dL (70-110)
[2023-09-22 20:26] LABS: Glucose,Whole Blood 284 mg/dL (70-110)
[2023-09-23 06:09] LABS: Glucose,Whole Blood 222 mg/dL (70-110)
[2023-09-23] MEDS: amLODIPine 10 MG TAB PO SCH (08:36)
[2023-09-23 09:29] LABS: Basophils % (A) 0.9 %; Eosinophils % (A) 4.7 %; HCT 29.3 % (37.2-46.3); HGB 8.6 g/dL (12.0-15.0); Lymphocytes # (A) 0.91 X 10*3/uL (0.90-5.00); Lymphocytes % (A) 8.5 %; MCH 28.2 pg (27.0-32.0); MCHC 29.4 g/dL (32.0-37.0); MCV 96.1 FL (80.0-97.0); Mean Platelet Volume 11.3 FL (9.5-12.2); Monocytes # (A) 1.06 X 10*3/uL (0.20-1.00); Monocytes % (A) 9.9 %; NRBC Per 100 WBC 0.02 X 10*3/uL (0.00-0.01); Neutrophils # (A) 7.98 X 10*3/uL (1.80-7.70); Neutrophils % (A) 74.6 %; Platelet Count 255 X 10*3/uL (140-440); RBC 3.05 X 10*6/uL (4.10-5.20); RDW 16.7 % (11.5-14.5)
--- NOTE | 2023-09-23 11:28 | P.PN ---
Subjective Patient is seen in follow-up for acute kidney injury. Renal function stable as of yesterday. Has Hays catheter. Nonoliguric. Oral intake fair. Edema worse today. Vital signs are stable. General: Agitated and restless. HEENT: On nasal cannula. LUNGS: No audible rhonchi or wheezes. HEART: Rate and Rhythm are regular. ABDOMEN: No distention. EXTREMITITES: 2+ edema. Objective - Vital Signs Vital signs: Vital Signs Temp 97.6 F 09/23/23 08:00 Pulse 90 09/23/23 08:00 Resp 17 09/23/23 08:00 BP 170/76 09/23/23 08:00 Pulse Ox 94 L 09/23/23 08:00 FiO2 3 09/02/23 04:00 Intake & Output 09/22/23 09/23/23 09/23/23 18:59 06:59 18:59 Intake Total 490 Output Total 750 350 Balance -260 -350 Intake: IV 10 Invasive Line 10 10 Oral 480 Output: Urine 750 350 Other: Voiding Method Indwelling Catheter Indwelling Catheter Indwelling Catheter ABP, PAP, CO, CI - Last Documented Arterial Blood Pressure 125/73 - Labs CBC & Chem 7: 09/23/23 04:26 09/22/23 07:13 Labs: Abnormal Lab Results - Last 24 Hours (Table) 09/22/23 09/22/23 09/22/23 Range/Units 11:58 16:46 20:25 WBC (4.50-10.00) X 10*3/uL RBC (4.10-5.20) X 10*6/uL Hgb (12.0-15.0) g/dL Hct (37.2-46.3) % MCHC (32.0-37.0) g/dL RDW (11.5-14.5) % Immature Gran # (0.00-0.04) X 10*3/uL Neutrophils # (1.80-7.70) X 10*3/uL Monocytes # (0.20-1.00) X 10*3/uL Eosinophils # (0.04-0.35) X 10*3/uL NRBC/100 WBC Diff (0.00-0.01) X 10*3/uL POC Glucose (mg/dL) 230 H 225 H 284 H (70-110) mg/dL 09/23/23 09/23/23 Range/Units 04:26 06:07 WBC 10.70 H (4.50-10.00) X 10*3/uL RBC 3.05 L (4.10-5.20) X 10*6/uL Hgb 8.6 L (12.0-15.0) g/dL Hct 29.3 L (37.2-46.3) % MCHC 29.4 L (32.0-37.0) g/dL RDW 16.7 H (11.5-14.5) % Immature Gran # 0.15 H (0.00-0.04) X 10*3/uL Neutrophils # 7.98 H (1.80-7.70) X 10*3/uL Monocytes # 1.06 H (0.20-1.00) X 10*3/uL Eosinophils # 0.50 H (0.04-0.35) X 10*3/uL NRBC/100 WBC Diff 0.02 H (0.00-0.01) X 10*3/uL POC Glucose (mg/dL) 222 H (70-110) mg/dL Assessment and Plan Plan: Assessment: 1. Acute kidney injury on chronic kidney disease secondary to ATN secondary to cardiorenal syndrome and cardiac arrest. Renal function worsened the last 2 days. Creatinine stable at 2.02 as of yesterday. Patient was on hemodialysis in the past with last treatment being July 02, 2023. 2. Volume overload. Improved with diuresis. Seems to be worsening again. 3. Acute on chronic diastolic CHF. 4. Diabetes mellitus. 5. Right foot wound. 6. Coronary disease with cardiac stenting. 7. Status post PEA arrest with concern for anoxic encephalopathy. 8. Septic shock with urine culture positive for E. coli and catheter tip culture positive for Corynebacterium. On antibiotics. Off vasopressors. 9. Metabolic acidosis secondary to acute kidney injury and IV fluids. Improved. 10. Anemia. Iron deficiency noted. Status post IV iron. On Aranesp. Also received blood transfusion this admission. 11. Hypernatremia from lack of oral water intake and free water diuresis. Status post D5W. Improved. Plan: Stop torsemide. Add IV Lasix 40 mg twice daily. Encouraged oral intake. Avoid nephrotoxins. Continue to monitor renal function and urine output.
[2023-09-23 12:02] LABS: Glucose,Whole Blood 279 mg/dL (70-110)
--- NOTE | 2023-09-23 12:32 | P.PN ---
Subjective Progress Note Date: 09/23/23 History of Present Illness: The patient is a 57-year-old female with known history of hypertension, hyperl ipidemia, diabetes mellitus as well as a history of coronary disease status post stenting of the RCA and chronic kidney disease who presented with dyspnea and had a cardiopulmonary arrest requiring CPR and mechanical ventilation. She is extubated, complaining of chest wall tenderness post CPR. She continues to be in sinus mechanism and hemodynamically stable. She had some bradycardia earlier and was started on IV dopamine. She is in sinus mechanism with no further bradycardia. Her urinary output has been stable. Her initial echo on presentation showed a preserved systolic function subsequently was found to have cardiomyopathy but that was done shortly after the event. She has a subacute fracture of the medial and lateral malleolus on the right side. August 26: The patient is sedated, she was quite agitated during the night. She had few episodes of sinus bradycardia, brief. She had no evidence of high-grade AV block. Her urinary output is stable. Her blood pressure is under good control without any vasopressors. Her repeat echocardiogram showed a preserved systolic function. She has been evaluated by neurology for possible anoxic encephalopathy. August 1: The patient is awake, confused. In sinus mechanism with no further episodes of high-grade AV block. Her blood pressure is stable. Her urinary output stable. There is no evidence of atrial fibrillation or ventricular ectopic activity. Repeat echocardiogram showed a normal left ventricle systolic function. August 28: The patient is sedated. She was agitated and confused during the night. She had no further episodes of bradycardia arrhythmia. Her blood pressure has been stable. She continues to be intubated. She is undergoing an EEG to evaluate her neurological status. There is no evidence of atrial fibrillation or ventricular tachyarrhythmia. August 29: The patient is more awake continues to have some episodes of confusion. She continues to be in sinus mechanism with no arrhythmia. Her EEG showed some i mprovement. Her urinary output has been good. Her blood pressure is stable and there is no evidence of significant hypotension. September 14, 2023 Seen and examined at bedside this a.m. Patient is confused and is in delirium state. She is needing a sitter to be present to calm her down. Mild volume overload 09/15 Patient has been transferred out of the intensive care unit. She is scheduled for EGD today due to GI bleed and stool for occult blood. Plavix is currently on hold but she has been continued on aspirin 81 mg daily. Patient remains quite confused with sitter at the bedside. Blood pressure 144/76, heart rate 82, pulse ox 90% on room air. Repeat blood work reveals stable hemoglobin of 9.4, BUN 30 creatinine 1.54. She is s/p transfusion of 2 units of packed RBCs. Patient has been picking at her nose and face and there is dried blood around her nose and mouth and both hands. 09/19 Patient has been on the [facility] floor most of this week and cardiology signed off as of 09/17. We have been reconsulted regarding bradycardia. Patient's heart rate was running in the 30s during the night and also today. Sinus rhythm. Patient received metoprolol tartrate 12.5 mg this morning. Patient is asymptomatic. On 09/15, patient underwent EGD that revealed antral gastritis. Pathology positive for mild chronic gastritis. She has not been resumed on DAPT. 09/20 Patient is seen today in follow-up. We have been reconsulted regarding bradycardia. Lopressor has been discontinued but patient did receive it yesterday morning. Heart rates are running between 43 and 62. Blood pressure 122/65, pulse ox 99% on 3 L nasal cannula. Telemetry sinus rhythm at 78 bpm. EKG sinus at 40 bpm. Patient denies lightheadedness or dizziness. Patient remains confused with consumer safety inspector at the bedside. 09/21 Feeling good today, some confusion. No chest pain or pressure. No lightheadedness or dizziness. Hgb 9.2, creat 2.0. Blood pressure not well controlled. 09/23/2023 She denies any chest pain or pressure. She reports her breathing is better. Right leg swelling is slightly worse today. Blood pressure is not well- controlled. Physical Examination: 57-year-old female, awake with some confusion, improved Head: Normocephalic. Eyes: Sclerae nonicteric. Neck: Good carotid upstroke, no bruit, mild elevated jugular venous distention. Lungs: Clear anteriorly Heart: Regular rate and rhythm, S1-S2, no S3, no rub. No murmur. Abdomen: Soft , positive bowel soun Extremities: 1+ pitting edema bilateral lower extremity R>L Impression: 1. Status post cardiopulmonary arrest, etiology unclear. No clear evidence of acute ischemic event. 2. Status post stenting of the RCA during prior admission, May 2023 3. Chronic kidney disease 4. Chest wall discomfort, stable 5. History of hyperlipidemia 6. History of hypertension 7. Bradycardia resolved 8. History of diabetes 9. Cardiomyopathy resolved 10. Anoxic encephalopathy, postarrest, improving 11. Delirium 12. Right heel wound 13. Black tarry stools, concern of GI bleeding Plan: Added aldactone 25mg for better blood pressure management. Ideally add losartan when kidney function improves. Hydralizine added today by nephro. Lasix per nephro for lower extremity edema. Continue aspirin and Plavix, no black stools and cleared by general surgery Continue to hold beta-satnam Continue telemetry monitoring Plan for event monitor at the time of discharge We will follow. Nurse practitioner note has been reviewed, I agree with documented findings and plan of care. Patient was seen and examined. Objective - Vital Signs Vital signs: Vital Signs Temp 97.6 F 09/23/23 08:00 Pulse 90 09/23/23 08:00 Resp 17 09/23/23 08:00 BP 170/76 09/23/23 08:00 Pulse Ox 94 L 09/23/23 08:00 FiO2 3 09/02/23 04:00 Intake & Output 09/22/23 09/23/23 09/23/23 18:59 06:59 18:59 Intake Total 490 Output Total 750 350 Balance -260 -350 Intake: IV 10 Invasive Line 10 10 Oral 480 Output: Urine 750 350 Other: Voiding Method Indwelling Catheter Indwelling Catheter Indwelling Catheter ABP, PAP, CO, CI - Last Documented Arterial Blood Pressure 125/73 - Labs CBC & Chem 7: 09/23/23 04:26 09/22/23 07:13 Labs: Abnormal Lab Results - Last 24 Hours (Table) 09/22/23 09/22/23 09/22/23 Range/Units 11:58 16:46 20:25 WBC (4.50-10.00) X 10*3/uL RBC (4.10-5.20) X 10*6/uL Hgb (12.0-15.0) g/dL Hct (37.2-46.3) % MCHC (32.0-37.0) g/dL RDW (11.5-14.5) % Immature Gran # (0.00-0.04) X 10*3/uL Neutrophils # (1.80-7.70) X 10*3/uL Monocytes # (0.20-1.00) X 10*3/uL Eosinophils # (0.04-0.35) X 10*3/uL NRBC/100 WBC Diff (0.00-0.01) X 10*3/uL POC Glucose (mg/dL) 230 H 225 H 284 H (70-110) mg/dL 09/23/23 09/23/23 Range/Units 04:26 06:07 WBC 10.70 H (4.50-10.00) X 10*3/uL RBC 3.05 L (4.10-5.20) X 10*6/uL Hgb 8.6 L (12.0-15.0) g/dL Hct 29.3 L (37.2-46.3) % MCHC 29.4 L (32.0-37.0) g/dL RDW 16.7 H (11.5-14.5) % Immature Gran # 0.15 H (0.00-0.04) X 10*3/uL Neutrophils # 7.98 H (1.80-7.70) X 10*3/uL Monocytes # 1.06 H (0.20-1.00) X 10*3/uL Eosinophils # 0.50 H (0.04-0.35) X 10*3/uL NRBC/100 WBC Diff 0.02 H (0.00-0.01) X 10*3/uL POC Glucose (mg/dL) 222 H (70-110) mg/dL
[2023-09-23] MEDS: hydrALAZINE HCL 25 MG TAB PO SCH (15:20)
--- NOTE | 2023-09-23 16:08 | P.PN ---
Subjective Progress Note Date: 09/23/23 On today's evaluation of 09/16/2023, mental status is still unchanged and the patient continues to have restlessness in bed requiring a sitter at the bedside at all times. No focal neurological deficits. The patient is currently on risperidone 2 mg p.o. twice a day and the patient is also on Requip 1 mg at bedtime. No significant respiratory distress. The patient is currently on room air oxygen with a pulse ox of 90%. There is also suspicion for a GI bleed. The patient's hemoglobin is currently at 9.4 with a white cell count of 4.8. BUN is at 30 with a creatinine of 1.45 and a sodium level of 141. The patient is to undergo an EGD today regarding workup for GI bleeding. On today's evaluation of 09/17/2023, the patient seems to be calm and comfortable without any significant restlessness or agitation. She is answering questions appropriately and she seems to be quite responsive at this point in time. Noted EGD was done yesterday and there was no indication for any acute bleeding and t he patient's hemoglobin has remained stable. No fever. No chills. The white cell count today is at 5.5 with a hemoglobin 9.2 and a platelet count of 272. Electrolytes are normal. BUN is at 25 with a creatinine of 1.5 consistent with chronic kidney disease and the creatinine has been stable. LFTs are also within normal limits. Stool for C. difficile has been negative. The patient remains on risperidone 2 mg p.o. twice daily and the patient is also on Requip. No other significant events overnight. Sitter remains at the bedside. Infectious disease continues to follow-up this patient. Patient is being treated with broad-spectrum antibiotics. The patient has a chronic right heel wound in addition to an area of cellulitis at the site of the previously inserted dialysis catheter and the patient continues to be on daptomycin. 09/18/2023, patient is again restless. At times, she is still getting confused. As such, despite some limited improvement in her mentation yesterday, she is still having episodes of confusion and restlessness and she is requiring a sitter at bedside. This has prevented us from transferring care to a ECF/LTAC facility. Will consult again with neurology/psychiatry. She is on Risperdal. White cell count is 4.7 hemoglobin is 8.8 and platelet count of 245. Creatinine is stable at 1.6 and a BUN of 27. Electrolytes are all within normal limits. She is currently on 2 L with a pulse ox of 96%. No respiratory distress. On 09/19/2023, the patient is being seen for a follow-up. No major change in condition. This morning she is comfortable and quiet and the sister at the bedside. Labs were reviewed. Creatinine stable at 1.35 with a sodium level of 140. White cell count is 4.7 with a hemoglobin of 9. No new complaints. Medication remains unchanged. Remains on aspirin 2 mg twice a day and Requip for increased restlessness. Remains on daptomycin. Remains on torsemide 20 mg p.o. daily. The heart rate is under better control. The patient is currently on metoprolol 12.5 mg p.o. twice a day. She is off the Cardizem drip. She remains on Plavix. On 09/20/2023, no new complaints and the patient's condition essentially unchanged. Sitter at the bedside. She is ambulating. Medication remains unchanged. Clinically stable. Hemodynamically stable. Labs have been stable and the patient has demonstrated stable renal function. No shortness of breath. She remains on oxygen and she is on 3 L/min nasal cannula for now. Pulse ox in order of 99 to 100%. No new labs are available from today. On today's evaluation of 09/21/2023, the patient seems to be more comfortable compared to yesterday. Mobility is limited because of her ankle fracture. No new complaints otherwise. Remains on oxygen at 3 L with a pulse ox of 97%. Sitter is at bedside. No change in medications. No new labs from today. No other significant events overnight. Remains on broad-spectrum antibiotic coverage. Remains on a combination of risperidone and Requip. Remains on Demadex 20 mg p.o. per day. Renal function has remained stable. 09/22/2023, the patient is being seen for a follow-up. She remains on oxygen at 3 L with a pulse ox of 96%. He had a minor fall yesterday as she was trying to get out of bed. Apparently she slept on the floor. No major injuries. No chest pain. No new labs from today. Creatinine from yesterday was at 2.02 with a BUN of 52. Medications are unchanged. Sitter is at the bedside. Chest x-ray from 09/21/2023 showed cardiomegaly. 09/23/2023, the patient is being seen for a follow-up. No chest pain. No shor tness of breath. Breathing comfortably. No complaints. Labs are all stable with a white cell count of 10.7 hemoglobin 8.6 and platelet count of 255. No focal neurological deficits. Sitter at the bedside. Objective - Vital Signs Vital signs: Vital Signs Temp 97.6 F 09/23/23 14:00 Pulse 89 09/23/23 14:00 Resp 19 09/23/23 14:00 BP 164/82 09/23/23 14:00 Pulse Ox 97 09/23/23 14:00 FiO2 3 09/02/23 04:00 Intake & Output 09/22/23 09/23/23 09/23/23 18:59 06:59 18:59 Intake Total 490 Output Total 750 350 Balance -260 -350 Intake: IV 10 Invasive Line 10 10 Oral 480 Output: Urine 750 350 Other: Voiding Method Indwelling Catheter Indwelling Catheter Indwelling Catheter ABP, PAP, CO, CI - Last Documented Arterial Blood Pressure 125/73 - Labs CBC & Chem 7: 09/23/23 04:26 09/22/23 07:13 Labs: Abnormal Lab Results - Last 24 Hours (Table) 09/22/23 09/22/23 09/23/23 Range/Units 16:46 20:25 04:26 WBC 10.70 H (4.50-10.00) X 10*3/uL RBC 3.05 L (4.10-5.20) X 10*6/uL Hgb 8.6 L (12.0-15.0) g/dL Hct 29.3 L (37.2-46.3) % MCHC 29.4 L (32.0-37.0) g/dL RDW 16.7 H (11.5-14.5) % Immature Gran # 0.15 H (0.00-0.04) X 10*3/uL Neutrophils # 7.98 H (1.80-7.70) X 10*3/uL Monocytes # 1.06 H (0.20-1.00) X 10*3/uL Eosinophils # 0.50 H (0.04-0.35) X 10*3/uL NRBC/100 WBC Diff 0.02 H (0.00-0.01) X 10*3/uL POC Glucose (mg/dL) 225 H 284 H (70-110) mg/dL 09/23/23 09/23/23 Range/Units 06:07 12:00 WBC (4.50-10.00) X 10*3/uL RBC (4.10-5.20) X 10*6/uL Hgb (12.0-15.0) g/dL Hct (37.2-46.3) % MCHC (32.0-37.0) g/dL RDW (11.5-14.5) % Immature Gran # (0.00-0.04) X 10*3/uL Neutrophils # (1.80-7.70) X 10*3/uL Monocytes # (0.20-1.00) X 10*3/uL Eosinophils # (0.04-0.35) X 10*3/uL NRBC/100 WBC Diff (0.00-0.01) X 10*3/uL POC Glucose (mg/dL) 222 H 279 H (70-110) mg/dL Assessment and Plan Plan: Cardiopulmonary arrest, x 2, with cardiopulmonary resuscitation, and return of spontaneous circulation on 08/23/23. Acute hypoxic respiratory failure, postcardiac arrest. The patient currently on 3 L of O2 nasal cannula, S/P intubation, and mechanical ventilation, secondary to cardiopulmonary arrest, August 23, 2023. She was extubated on 08/25/23. Encephalopathy, multifactorial, suspect post anoxic encephalopathy and cardiac arrest. Currently on risperidone and Requip for ongoing restlessness and encephalopathy. Patient is currently on risperidone 2 mg p.o. twice daily. History of congestive heart failure (HFPEF) Coronary artery disease/cardiomyopathy and the patient is post non-ST segment elevation myocardial infarction. Stage III chronic kidney disease. Right heel pressure ulcer, stage III. Subacute fracture of the medial and lateral malleolus. History of hypertension. History of hyperlipidemia. History of type 2 diabetes mellitus. History of severe pulmonary hypertension. History of COPD. History of peripheral neuropathy. Chest wall pain related to CPR. Plan: Continue same medications, chest x-ray from from 09/21/2023 showed cardiomegaly. Discharge planning is in progress still requiring sitter for close monitoring No changes in condition and patient remains on 3 days of O2 nasal cannula. This should be weaned off and the patient is ambulating using the incentive spirometer. Continue risperidone Continue Requip Will sign off the case.
[2023-09-23 16:36] LABS: Glucose,Whole Blood 279 mg/dL (70-110)
--- NOTE | 2023-09-23 18:19 | P.PN ---
Subjective Progress Note Date: 09/23/23 57-year-old female came in with complaints of shortness of breath and orthopnea found to be in congestive heart failure exacerbation patient has congestive heart failure with reduced ejection fraction in the past patient has increasing pedal edema. Patient also has an ulcer in the right foot stage III-IV which appeared to be infected we will consult wound care and infectious disease. Patient was on hemodialysis during last hospitalization her creatinine presently is 1.5 which is significantly improved patient potassium is 5.5, patient is on Entresto and Aldactone Aldactone will be held Entresto will be continued since she is receiving IV Lasix and expecting her potassium to improve if it does not improve or get worse then Entresto need to be discontinued as well. Patient has hypervolemic hyponatremia and hyperglycemia. 08/21/2023 Was evaluated today on the medical floor. Patient was continued on IV Lasix overnight however she was no longer reporting any shortness of breath and her lower extremity edema has improved. She was taken off of the Lasix at this time due to increased creatinine up to 2.31 additionally potassium remains elevated at 5.7. Echocardiogram comes back showing an improved ejection fraction of 60 to 65% because of this and also the hyperkalemia patient will not be continued on entresto. Patient was evaluated by infectious disease who felt like that heel ulcer on the right side was more likely a pressure injury stage III and is recommending local wound care to continue with Aquacel. Patient is reporting significant pain to the right foot and feels like it is fractured. Upon review of the patient's chart she did have a x-ray completed of this 12 days ago ordered by her clothes separator Dr. Mayen. Ankle x-ray did review a mildly displaced acute distal fibular fracture. Repeat x-ray of the foot and ankle completed today does reveal a subacute fractures of the medial and lateral malleolus. The lateral malleolus fracture was seen on the patient's prior exam the medial malleolus fracture may be new in the interval and this would be considered an unstable ankle fracture. There is interval 6 mm displacement of the lateral malleolus. There is a deep soft tissue ulcer at the plantar heel with no clear radiographic findings of a contagious osteomyelitis at this time. Orthooedics was consulted for this. 08/22/2023 Patient evaluated in follow-up today resting in bed. She was taken off of the Lasix remains off at this time. Bladder scan was requested and not done yesterday to rule out urinary retention, creatinine today is increased up to 2.56. Bladder scan was done require urinary straight catheterization of 550 mL taken out. Urinalysis was sent which is significantly abnormal. Patient is also noted to have multiple genital lesions which appear wartlike she admits to not having any routine gynecological screenings for many years. She is not having any vaginal bleeding or discharge. Renal ultrasound has been ordered to rule out any obstructive uropathy. 08/23/2023 Patient is evaluated today in follow-up patient had a cardiac event with cardiac arrest hvac mechanic around 445 AM with initial rhythm slowing asystole patient was started on CPR with ACS protocol patient did receive ROSC after 6 to 8 minutes and was transferred to the intensive care unit. Patient upon arrival to the intensive care unit had another episode of cardiac arrest patient had bradycardia while on pressors in the ICU patient was intubated following the first cardiac arrest and is currently on the mechanical ventilator 50% FiO2. Chest x-ray showing similar interstitial and patchy component airspace disease right greater than left. There is a possible trace left pleural effusion. A brain CT which shows no acute intracranial process. Blood work today shows a white blood cell count of 13.8, hemoglobin 9.5, sodium level of 135, BUN of 62, creatinine of 2.76. AST ALT and alk phosphatase are significantly elevated consistent with a shock liver. TSH 3.310. Urinalysis is abnormal. Her urine culture is showing gram-negative bacilli patient is covered for the urinary tract infection as well as aspiration with IV Zosyn being managed by infectious disease. Patient is currently sedated with propofol and did require vasopressor support with Levophed which has been weaned at this time. Will discontinue the gabapentin patient is continued on aspirin Plavix and statin has been placed on hold. There is concern for possible arrhythmia precipitating the asystole additionally we need to rule out embolism and a D-dimer has been ordered. 08/24/2023 Patient is seen in follow-up today continues in the ICU on mechanical ventilation. FiO2 is 50% although titrating and was just placed at 40% with a PEEP of 5. Chest x-ray today shows that the ET tube is 7 mm from the sonam suggesting a pulled back 2 cm and reassess and also suspected underlying vascular congestion. Neuro is following and per nursing staff patient is following some simple commands and undergoing sedation holidays. Patient noted to have reduced EF of 30 to 35% and cardiology had been following. Will reconsult and appreciate input and recommendations. patient did have dialysis catheter removed and sent for cultures which are pending. Infectious disease following and patient is maintained on antibiotic. D-dimer is elevated above 16 and will attempt to obtain a VQ scan.57-year-old female came in with complaints of shortness of breath and orthopnea found to be in congestive heart failure exacerbation patient has congestive heart failure with reduced ejection fraction in the past patient has increasing pedal edema. Patient also has an ulcer in the right foot stage III-IV which appeared to be infected we will consult wound care and infectious disease. Patient was on hemodialysis during last hospitalization her creatinine presently is 1.5 which is significantly improved patient potassium is 5.5, patient is on Entresto and Aldactone Aldactone will be held Entresto will be continued since she is receiving IV Lasix and expecting her potassium to improve if it does not improve or get worse then Entresto need to be discontinued as well. Patient has hypervolemic hyponatremia and hyperglycemia. 08/21/2023 Was evaluated today on the medical floor. Patient was continued on IV Lasix overnight however she was no longer reporting any shortness of breath and her lower extremity edema has improved. She was taken off of the Lasix at this time due to increased creatinine up to 2.31 additionally potassium remains elevated at 5.7. Echocardiogram comes back showing an improved ejection fraction of 60 to 65% because of this and also the hyperkalemia patient will not be continued on entresto. Patient was evaluated by infectious disease who felt like that heel ulcer on the right side was more likely a pressure injury stage III and is recommending local wound care to continue with Aquacel. Patient is reporting significant pain to the right foot and feels like it is fractured. Upon review of the patient's chart she did have a x-ray completed of this 12 days ago ordered by her clothes separator Dr. Mayen. Ankle x-ray did review a mildly displaced acute distal fibular fracture. Repeat x-ray of the foot and ankle completed today does reveal a subacute fractures of the medial and lateral malleolus. The lateral malleolus fracture was seen on the patient's prior exam the medial malleolus fracture may be new in the interval and this would be considered an unstable ankle fracture. There is interval 6 mm displacement of the lateral malleolus. There is a deep soft tissue ulcer at the plantar heel with no clear radiographic findings of a contagious osteomyelitis at this time. Orthooedics was consulted for this. 08/22/2023 Patient evaluated in follow-up today resting in bed. She was taken off of the Lasix remains off at this time. Bladder scan was requested and not done yesterday to rule out urinary retention, creatinine today is increased up to 2.56. Bladder scan was done require urinary straight catheterization of 550 mL taken out. Urinalysis was sent which is significantly abnormal. Patient is also noted to have multiple genital lesions which appear wartlike she admits to not having any routine gynecological screenings for many years. She is not having any vaginal bleeding or discharge. Renal ultrasound has been ordered to rule out any obstructive uropathy. 08/23/2023 Patient is evaluated today in follow-up patient had a cardiac event with cardiac arrest hvac mechanic around 445 AM with initial rhythm slowing asystole patient was started on CPR with ACS protocol patient did receive ROSC after 6 to 8 minutes and was transferred to the intensive care unit. Patient upon arrival to the intensive care unit had another episode of cardiac arrest patient had bradycardia while on pressors in the ICU patient was intubated following the first cardiac arrest and is currently on the mechanical ventilator 50% FiO2. Chest x-ray showing similar interstitial and patchy component airspace disease right greater than left. There is a possible trace left pleural effusion. A brain CT which shows no acute intracranial process. Blood work today shows a white blood cell count of 13.8, hemoglobin 9.5, sodium level of 135, BUN of 62, creatinine of 2.76. AST ALT and alk phosphatase are significantly elevated consistent with a shock liver. TSH 3.310. Urinalysis is abnormal. Her urine culture is showing gram-negative bacilli patient is covered for the urinary tract infection as well as aspiration with IV Zosyn being managed by infectious disease. Patient is currently sedated with propofol and did require vasopressor support with Levophed which has been weaned at this time. Will discontinue the gabapentin patient is continued on aspirin Plavix and statin has been placed on hold. There is concern for possible arrhythmia precipitating the asystole additionally we need to rule out embolism and a D-dimer has been ordered. 08/24/2023 Patient is seen in follow-up today continues in the ICU on mechanical ventil ation. FiO2 is 50% although titrating and was just placed at 40% with a PEEP of 5. Chest x-ray today shows that the ET tube is 7 mm from the sonam suggesting a pulled back 2 cm and reassess and also suspected underlying vascular congestion. Neuro is following and per nursing staff patient is following some simple commands and undergoing sedation holidays. Patient noted to have reduced EF of 30 to 35% and cardiology had been following. Will reconsult and appreciate input and recommendations. patient did have dialysis catheter removed and sent for cultures which are pending. Infectious disease following and patient is maintained on antibiotic. D-dimer is elevated above 16 and will atte mpt to obtain a VQ scan. 08/25/23 : Patient seen and evaluated at bedside, patient extubated around noon, transition to 5 L of oxygen to nasal cannula. Family at bedside, blood work reviewed hemoglobin 10.3, serum chemistry reviewed sodium 140 potassium 4.8 BUN 57 creatinine 2.49 calcium of 7. 08/26/23 : Patient seen and evaluated at bedside, patient remains in medical ICU, does complain of chest pain from CPR. Patient has been weaned off dopamine, cardiology following, blood work reviewed, hemoglobin 8.5 platelet count of 217, serum chemistry shows sodium 141 BUN 51 creatinine 2.28. Followed up by nephrology as well MARYLOU secondary to ATN continue to monitor intake and output 08/27/23: Patient seen and evaluated bedside, on evaluation patient is disoriented, patient is drowsy however likely having acute delirium. Seen by cardiology echocardiogram shows preserved ejection fraction continue with current medical management, patient on Precedex for acute delirium, continue to remain on oxygen supplementation with nasal cannula blood work reviewed CBC showed WBC 8.2 hemoglobin 8.6 serum chemistry showed creatinine of 2.22. Patient remains delirious, daughter at bedside all questions answered 08/28/2023 Patient was agitated earlier requiring Seroquel and Placed on Precedex because she was has risk to self and others Currently when I saw the patient she was sleepy However she is not tachypneic show does not look in pain. Vitals are stable She is saturating 91% on 2 L oxygen via nasal cannula She remains on Zosyn for pneumonia and UTI She is on normal saline at 50 mL/h 08/29/2023 Patient remains sleepy, she still has some encephalopathy But she is on Precedex which will be tapered off by pulmonary team today to assess her mentation as well. Patient has been followed by neurology for suspected anoxic brain injury after her cardiac arrest and return of circulation on 08/22. There is no evidence of seizure-like activity She has catheter tip infection with culture growing Corynebacterium species and she is currently covered with Zosyn which also help for her right heel pressure ulcer and aspiration pneumonia and UTI. Cardiology evaluated the patient and there is no clear evidence for her cardiac arrest although she has history of coronary artery disease and previous stents. Currently with no chest pain. She remains on aspirin and Plavix, gentle hydration, IV steroids 08/30/2023 Today her sedation remains off however patient mentation not completely resolved, it is somewhat better as she was more sleepy yesterday She is eating okay, swallowing is fine She was started on IV Lasix twice daily per collections director. She has good urine output and normal send discontinued She is hemodynamically stable and oxygenation is acceptable Remains on aspirin and Plavix and Seroquel 08/31/23: Seen and evaluated at bedside, patient remains on 4 L of oxygen, blood work reviewed, WBC 7.3 hemoglobin 9.1 platelet count of 203 glucose 119. CBC reviewed showed WBC 7.3 hemoglobin 9.1 platelet count of 203.. Neurology consulted and following. Patient is awake and alert able to answer questions and follow commands sister at bedside all questions answered 09/01/23: Seen and evaluated at bedside, patient vitals reviewed, serum chemistry reviewed sodium 145 potassium 4.6 creatinine 2.71, CBC reviewed patient remains on IV Zosyn , appreciate input from nephrology continue patient on IV Lasix, delirium persist 09/02/23: Patient seen and evaluated bedside, patient been admitted for cardiopulmonary arrest, respiratory failure s/p extubation on nasal cannula however continues to remain delirious. Blood work reviewed hemoglobin 8.8, platelet count 226, serum chemistry reviewed creatinine 2.55 potassium 4.5. MRI brain has been ordered which is pending, patient remains disoriented 09/03/2023 Patient is seen in follow-up status post recent extubation maintained on a few liters of pulmonary inspector paper products following closely. Cardiology following as well and adjusted medications recommending continuing with current medication regimen. No change in mentation as patient continues with periods of confusion and restlessness. Medications being adjusted and Ativan as needed has been added. Continue Seroquel. Patient will answer questions appropriately and discuss her health history and can recall her doctors names but will ramble on regarding something irrelevant during conversation. Patient is redirectable. Patient continues with partial cast noted on the lower extremity. Patient continues on IV Lasix and kidney functions are improving nephrology following closely. Plan is for patient to possibly move out of the ICU. Will have PT/OT therapy evaluate the patient and discuss further with consultations along with case management regarding possible ECF versus discharge planning. 09/04/2023 Patient seen in follow-up today and continues to have periods of confusion and restlessness. Patient continues in the ICU with multiple medical consultations following. Hemoglobin was found to be less than 7 today and will transfuse 1 unit of PRBC. Sodium 147 and recommend repeat labs as well. Nephrology is following and patient is continued on IV Lasix. MRI of the brain remains pending and neurology is following. 09/05/2023 Patient is seen and evaluated today continues to be in the ICU needs continuous reinforcement on keeping oxygen on. Patient does have a safety deposit supervisor at the bedside. Patient is currently resting although remains confused and anxious and agitated at times. Hemoglobin is stable above 7 status post 1 unit of PRBC. Patient continues on IV Lasix daily and nephrology following closely. Patient to continue on IV antibiotics with infectious disease following. 09/06/2023 Patient seen in follow-up today continues to be sleepy at this time although when awake patient is extremely restless and agitated requiring sitter at the bedside. Adjustments to medications being made and Risperdal is being increased and will continue with Seroquel. Ativan as needed. Patient's hemoglobin is stable with no active bleeding noted. Neurology following as patient continues to be unable to obtain an MRI and will have a repeat EEG as well as CT brain per neurology. Patient is afebrile and is continued on antibiotics with infectious disease following. 09/09/2023 Patient seen in follow-up today has been transitioned out of the ICU and curren tly on selective unit and continues with safety deposit supervisor at the bedside. Patient is keeping her oxygen on currently and is on 4 L. Multiple medical consultations following and per nursing staff patient was able to get up and work with physical therapy today. Plan is for ECF when patient's mentation is improved. Patient continues on IV Lasix twice daily as well with nephrology following. Continue Ativan as needed and patient is also maintained on Risperdal twice daily. Patient is afebrile with no reports of chest pain or shortness of breath. Hemoglobin is stable at 9.8 and white count is normal and kidney functions are improving. Continue monitoring Accu-Cheks before meals and at bedtime and will continue with sliding scale. Neurology following and patient is scheduled to undergo repeat brain CT today. Chest x-ray continues to show pulmonary vascular congestion. 09/10/2023 Patient is seen in follow-up today and mentation is much improved with family sitting at the bedside. Patient is able to have conversation and reports she is going home although patient has significant weakness and will be requiring ECF on discharge. Case management following awaiting for ECF evaluation and will require insurance authorization. Patient is afebrile and has been on IV antibiotics in the form of Zosyn with infectious disease following and white count remains normal and patient will be monitored off antibiotic therapy. Patient also continues on IV Lasix twice daily along with treatments and continued supplemental oxygen. Patient is on 4 L via nasal cannula. 09/11/2023 Patient is seen in follow-up this morning continues to display periods of confusion with increased agitation and restlessness. Per nursing staff patient had reports of hallucinating and seeing things crawling in the room that were not there. Patient is extremely anxious today although continues to be more mikaela ke. Patient reports is eating without much of an appetite. Patient has been compliant with working with physical therapy and will require ECF on discharge. Patient continues with safety deposit supervisor as patient is impulsive and attempts to get up out of the bed impulsively. Will ask for psychiatry to reevaluate and adjust medications. Will discontinue Dilaudid as the hallucinations appeared shortly after receiving this medication. Patient does elicit pain in the right leg and foot. 09/12/2023 Patient is seen in follow-up today and continues with confusion and requiring a sitter for safety. Patient has been working with physical therapy and reports she is doing well and ready to go home although she will require ECF for continued strength and mobility. Patient is extremely impulsive and restless at times. Asking psychiatry to reevaluate and will adjust medications. Family also working on obtaining guardianship as patient is not making sound decisions for herself medically. Family report they also cannot take her home and take care of her as they are elderly. Patient is afebrile with no reported chest pain or shortness of breath. Patient continues on 4 L and continues to remove her oxygen frequently. Patient is maintained on IV Lasix and being transition to daily. Continue monitoring kidney functions and nephrology is following. Being monitored off antibiotic therapy 09/13/2023 Patient is seen in follow-up this morning continues with a sitter at the bedside. Per nursing staff patient had a large black bowel movement and was incontinent. Occult Was positive and stat repeat hemoglobin was obtained and actually improved from previous at 9.5. Patient is maintained on aspirin, Plavix, and heparin and will hold for now. No GI available and will consult general surgery for evaluation of possible GI bleed. Contents do not appear to be melanotic on exam although dark stools are noted. Multiple other consultations following as well as psychiatry who reevaluated and adjusted medications. Mentation is improved today and less anxious and agitated and per nursing staff more appropriate today. Will continue current regimen and also continue VIDEO GAME ENGINEER and narcotic agents. 09/14/2023 Patient is evaluated in follow-up with sister at the bedside as well as family. General surgery is planning for an upper endoscopy on Saturday with no further reports of any black or bloody stool. Aspirin Plavix and heparin remain on hold. Patient was seen in follow-up by psychiatry for now continues on Prolixin as needed, olanzapine as needed. Patient is maintained on risperidone twice a day scheduled. Patient's mentation she is currently alert x 1-0 she is hallucinating and appears delirious. Continues on IV Lasix 40 mg every 12 hours. Continues on IV daptomycin. Continues in the cast to the right lower extremity. Bun is 32, creatinine is 1.57, magnesium 1.7. White blood cell count 5.1. 09/15/2023 Patient evaluated today with safety deposit supervisor at the bedside. Patient has no further episodes of bloody stool and is scheduled to undergo an endoscopy on Saturday. Patient is more awake alert today and is more appropriate although she continues to have hallucinations. Patient continues on IV daptomycin with concerns for lower extremity cellulitis. No significant complaints today. 09/16/2023 Patient is seen in follow-up continues with confusion and sitter at the bedside. Patient is n.p.o. currently and scheduled to undergo EGD today with general surgery. Hemoglobin is stable and 9.4 with no active bleeding other than nosebleed. Patient is maintained on Afrin as needed. Patient continues on room air and weaning as tolerated. 91% on room air with pulmonary following. Case management/social work following as well with plans on attempting to have patient go to ECF for significant weakness. Patient continues with sitter at this time making it difficult for placement although patient continues to be somewhat confused and restless and impulsive. Patient is afebrile with no reports of chest pain or shortness of breath. Patient currently n.p.o. and diet will be resumed once cleared by surgery. Kidney functions improving and patient remains on IV Lasix with nephrology following. 09/17/2023 Patient seen and evaluated in follow-up this morning and mood is appropriate, less anxious and restless and responding more appropriately to questions and com mands. Patient does have a sitter for safety at the bedside and if mentation continues to improve need to consider having sitter removed. Patient with significant weakness and prolonged hospitalization will need ECF on discharge. Parents are working on guardianship to help with patient's overall medical care. Patient maintained on IV Lasix showing improvements with nephrology following and will be switching to torsemide. Follow-up on repeat labs and replace electrolytes per protocol. Hemoglobin is stable above 9 with no active bleeding noted. Patient is status post EGD showing antral gastritis. Patient continues to have incontinence with multiple bowel movements although no dark stools or bleeding noted. Cardiology following recommending resuming Plavix when bleeding is stable. Patient continues to have intermittent nosebleeds and has been placed on humidification as patient continues on 4 L via nasal cannula. Patient found multiple times on exam on room air with no oxygen. Recommend to wean FiO2 as tolerated and documented evaluate oxygen saturations while on room air. Recommend PT/OT therapy daily. 09/18/2023 Patient is seen in follow-up today and patient continues to be confused and extremely anxious. As needed medications being used and patient is maintained on risperdol and remains extremely anxious. Patient was noted to have elevated heart rate with some shortness of breath on exam maintained on 4 L via nasal cannula. Will obtain a chest x-ray and also discussed with cardiology. Patient denies any chest pain or shortness of breath although is dyspneic while talking on exam. Patient is afebrile and maintained on daptomycin with infectious disease following awaiting cultures on the catheter site from the previous dialysis port. Kidney functions remained stable with nephrology following and will continue current regimen. Patient has been transition to torsemide daily. Hemoglobin remained stable with no active bleeding noted. Encouraged oral intake and supervision with meals. Encouraged the patient to sit upright along with nursing staff as patient is found to be laying flat on exam each day. Patient is restless and squirms around in the bed all day making it difficult to maintain proper positioning. 09/19/2023 Patient is seen in follow-up today had elevated heart rates into the 150s and cardiology was reconsulted placing the patient on Cardizem drip and patient was brought to 3 S. patient's overall mentation continues to wax and wane with continuous confusion, anxiousness, agitation. Medications being adjusted and patient continues to be extremely weak and also continues to require a sitter at the bedside. Heart rate currently rate controlled and Cardizem on hold. Patient is afebrile with no reported chest pain or worsening shortness of breath. Patient is on 2 L via nasal cannula and needs continuous encouragement on keeping the oxygen on. Patient will continue on daptomycin while inpatient with infectious disease following. 09/21/2023 --the patient seems to be more comfortable compared to yesterday. Mobility is limited because of her ankle fracture. No new complaints otherwise. Remains on oxygen at 3 L with a pulse ox of 97%. Sitter is at bedside. No change in medications. No new labs from today. No other significant events overnight. Remains on broad-spectrum antibiotic coverage. Remains on a combination of risperidone and Requip. Remains on Demadex 20 mg p.o. per day. Renal function has remained stable. Patient is planned to be discharged to [facility] once clinically stable; case management on board and making discharge arrangements --Patient continues to require a sitter at bedside; can be transferred to skilled rehab if stable without sitter for 24 hours 09/22/2023 --the patient is seen and evaluated in room at bedside. She remains on oxygen at 3 L with a pulse ox of 96%. He had a minor fall yesterday as she was trying to get out of bed. Apparently she slept on the floor. No major injuries. No chest pain. No new labs from today. Creatinine from yesterday was at 2.02 with a BUN of 52. Medications are unchanged. Sitter is at the bedside. Chest x-ray from 09/21/2023 showed cardiomegaly. -- Patient remains stable on O2 at 2 L per nasal cannula -- Case management on board for plan for patient to be discharged to skilled rehab; patient continues to require sitter; can be discharged to rehab once sitter is discontinued -- Patient remains on IV daptomycin; ID on board 09/23/2023 Patient is seen in follow-up today currently sitting up in the chair with granddaughter at the bedside and mentation is significantly. Mentation continues to be waxing and waning throughout the day and will have good days and bad days. Patient continues with sitter as patient is impulsive and forgetful. Patient is to continue nonweightbearing of that right lower extremity for now until follow-up with orthopedics. Will have PT/OT therapy evaluate the patient. Plan is for ECF once patient is medically stable. Patient continues on antibiotics with infectious disease following. Review of systems: Constitutional: No reports of fatigue, fever, or chills, reports feeling less anxious Cardiovascular: No reports of chest pain or palpitations Respiratory: No reports of shortness of breath or cough GI: No reports of nausea, vomiting, reports having multiple bowel movements that are loose : No reports of dysuria or retention Neurovascular: reports of generalized weakness, patient asks daily when she can go home All medications have been reviewed PHYSICAL EXAMINATION: GENERAL: The patient is on nasal cannula, awake alert and oriented x 2, slightly less anxious today, elderly appearing, unkempt, ill-appearing HEENT: Pupils are round and equally reacting to light. EOMI. CARDIOVASCULAR: S1 and S2 muffled PULMONARY: Decreased breath sounds bilaterally with some scattered rhonchi noted ABDOMEN: Soft, nontender, nondistended, normoactive bowel sounds. No palpable organomegaly. MUSCULOSKELETAL: No joint swelling or deformity. EXTREMITIES: Right lower extremity bandage with partial cast noted NEUROLOGICAL: pupils reactive, extremely anxious and confused today SKIN: Patient has right plantar surface ulcer on the posterior foot stage III-IV with areas of necrotic tissue. Casting and Tam wrap noted of the right lower extremity Assessment: Asystole/cardiopulmonary arrest x 2 with CPR/ROSC, unknown etiology Respiratory failure requiring intubation s/p extubation 08/25/2023 Concerns for chest wall cellulitis near the previous dialysis site, continued on daptomycin with ID following Large black stools, concern for GI bleed, ruled out, EGD showed antral gastritis Acute metabolic encephalopathy with concerns of anoxia, status postcardiac arrest Congestive heart failure with systolic dysfunction acute on chronic exacerbation Acute hypoxic respiratory failure secondary to CHF Ischemic cardiomyopathy with improved EF Acute kidney injury secondary to ATN on chronic kidney disease stage III Urinary tract infection with E. coli Subacute fracture of the medial and lateral malleolus, orthopedics following with no plans of immediate surgical intervention at this time Right heel stage III pressure injury continue local wound care with aquacel ID following. Genital lesions, will need glass furnace operator follow up outpatient for routine screenings Hypertension Hyperlipidemia Type 2 diabetes mellitus uncontrolled hgb a1c 12.1 Severe pulmonary hypertension COPD without any acute exacerbation Peripheral neuropathy GI prophylaxis DVT prophylaxis Full code Plan: Patient being followed by multiple medical consultation as well as safety deposit supervisor at the bedside. Patient extremely anxious and confused although appears improv ed from yesterday. Neurology following sporadically with no changes in current treatment plan, patient has been reevaluated by psychiatry with adjustments to medications. Wean FiO2 as tolerated and patient is maintained on 2-4 L with oxygen saturations of 91%. Patient has been weaning FiO2 as tolerated and continues to take tubing off. Patient being followed by nephrology with stable kidney functions and making urine. Patient does have indwelling [place] catheter and will consider removing. Patient being transition to torsemide per nephrology Patient was reevaluated by cardiology and currently rate controlled we will continue current regimen. Patient has been transitioned off of 3 S. patient will need reevaluation with PT/OT therapy for continued weakness and prolonged hospitalization as patient will most likely require ECF. Family feels unsafe to take care of her and care for her at home. They are currently working on guardianship as patient is not deemed capable of making sound medical decisions for herself. Mentation continues to wax and wane each day and is less anxious today. All VIDEO GAME ENGINEER and narcotic agents being held and patient was reevaluated by psychiatry with adjustments to medications and will continue current regimen. Continue safety deposit supervisor at this time as patient is known to be very impulsive and attempts to get out of the bed very frequently Patient's hemoglobin remains above 9 with no active bleeding noted. Patient evaluated by general surgery and underwent EGD showing antral gastritis with no active bleeding noted. Patient continues with nosebleeds likely secondary to dryness from continued oxygen use. Continue with Afrin as needed Infectious disease following and patient has been placed back on IV antibiotics with concerns of previous dialysis site chest wall cellulitis.. Patient continued on daptomycin. White count mildly elevated at 10. No active signs of infection at this time. Patient remains afebrile Repeat CT of the brain is negative for acute process. Neurology following and patient has been unable to receive an MRI given patient's continued restlessness and anxiety Overall prognosis is guarded It will be extremely difficult to have the patient placed in an AFC/ECF due to waxing and waning of mentation and agitation. Need to remove the sitter although unable to as patient remains impulsive and is high risk for falling. The impression and plan of care has been dictated by Mouna Rowley, Nurse Practitioner as directed. Dr. Wyatt MD I have performed a history and examination and MDM of this patient, discussed the same with the dictator, and agree with the dictator's assessment and plan as written ,documented as a scribe. Based on total visit time, I have performed more than 50% of the visit. Objective - Vital Signs Vital signs: Vital Signs Temp 97.6 F 09/23/23 14:00 Pulse 89 09/23/23 14:00 Resp 19 09/23/23 14:00 BP 164/82 09/23/23 14:00 Pulse Ox 97 09/23/23 14:00 FiO2 3 09/02/23 04:00 Intake & Output 09/22/23 09/23/23 09/23/23 18:59 06:59 18:59 Intake Total 490 Output Total 750 350 800 Balance -260 -350 -800 Intake: IV 10 Invasive Line 10 10 Oral 480 Output: Urine 750 350 800 Other: Voiding Method Indwelling Catheter Indwelling Catheter Indwelling Catheter # Bowel Movements 1 ABP, PAP, CO, CI - Last Documented Arterial Blood Pressure 125/73 - Labs CBC & Chem 7: 09/23/23 04:26 09/22/23 07:13 Labs: Abnormal Lab Results - Last 24 Hours (Table) 09/22/23 09/23/23 09/23/23 Range/Units 20:25 04:26 06:07 WBC 10.70 H (4.50-10.00) X 10*3/uL RBC 3.05 L (4.10-5.20) X 10*6/uL Hgb 8.6 L (12.0-15.0) g/dL Hct 29.3 L (37.2-46.3) % MCHC 29.4 L (32.0-37.0) g/dL RDW 16.7 H (11.5-14.5) % Immature Gran # 0.15 H (0.00-0.04) X 10*3/uL Neutrophils # 7.98 H (1.80-7.70) X 10*3/uL Monocytes # 1.06 H (0.20-1.00) X 10*3/uL Eosinophils # 0.50 H (0.04-0.35) X 10*3/uL NRBC/100 WBC Diff 0.02 H (0.00-0.01) X 10*3/uL POC Glucose (mg/dL) 284 H 222 H (70-110) mg/dL 09/23/23 09/23/23 Range/Units 12:00 16:34 WBC (4.50-10.00) X 10*3/uL RBC (4.10-5.20) X 10*6/uL Hgb (12.0-15.0) g/dL Hct (37.2-46.3) % MCHC (32.0-37.0) g/dL RDW (11.5-14.5) % Immature Gran # (0.00-0.04) X 10*3/uL Neutrophils # (1.80-7.70) X 10*3/uL Monocytes # (0.20-1.00) X 10*3/uL Eosinophils # (0.04-0.35) X 10*3/uL NRBC/100 WBC Diff (0.00-0.01) X 10*3/uL POC Glucose (mg/dL) 279 H 279 H (70-110) mg/dL
[2023-09-23 21:43] LABS: Glucose,Whole Blood 286 mg/dL (70-110)
[2023-09-23] MEDS: FUROSEMIDE 10 MG/ML 4 ML VIAL IV SCH (21:58)
[2023-09-24 06:40] LABS: Glucose,Whole Blood 167 mg/dL (70-110)
--- NOTE | 2023-09-24 08:16 | P.PN ---
Subjective Progress Note Date: 09/22/23 Principal diagnosis: Reason for follow-up is right heel diabetic foot ulcer Patient is a 57-year-old female with a past medical history significant for diabetes mellitus hypertension hyperlipidemia history of renal insufficiency requiring dialysis currently not on dialysis and the patient also have a chronic nonhealing wound to the right heel area, present to the hospital with increasing shortness of breath and swelling concerning for fluid overload.Patient did have a cardiac arrest around 4 AM 08/23/2023 with the patient went into asystole got resuscitated intubated and transferred to the ICU subsequently have another cardiac arrest with PEA rhythm not resuscitated. On today's evaluation that is 09/22/2023, the patient continues to be afebrile, the patient is on 3 L nasal oxygen and breathing comfortably, the Pt denies having any chest pain or cough, the patient denies having any abdominal pain no vomiting or any diarrhea has been reported by the nursing staff Patient white count is 7.8, creatinine is 2.02 Objective - Vital Signs Vital signs: Vital Signs Temp 97.4 F L 09/22/23 08:00 Pulse 89 09/22/23 08:00 Resp 16 09/22/23 08:00 BP 172/84 09/22/23 08:00 Pulse Ox 97 09/22/23 08:00 FiO2 3 09/02/23 04:00 Intake & Output 09/21/23 09/22/23 09/22/23 18:59 06:59 18:59 Intake Total 2280 10 10 Output Total 800 700 Balance 1480 -690 10 Intake: IV 10 10 Invasive Line 10 10 10 Oral 2280 Output: Urine 800 700 Other: Voiding Method Indwelling Catheter Indwelling Catheter Indwelling Catheter # Bowel Movements 1 ABP, PAP, CO, CI - Last Documented Arterial Blood Pressure 125/73 - Exam GENERAL DESCRIPTION: Middle-aged female lying in bed in no distress RESPIRATORY SYSTEM: Unlabored breathing , decreased breath sounds at bases HEART: S1 S2 regular rate and rhythm , right chest wall wound is drying out no drainage ABDOMEN: Soft , no tenderness EXTREMITIES: Right heel wound is currently dressed no drainage Exam completed with the help of CABLE PULLER - Labs CBC & Chem 7: 09/23/23 04:26 09/22/23 07:13 Labs: Abnormal Lab Results - Last 24 Hours (Table) 09/21/23 09/21/23 09/21/23 Range/Units 11:14 16:13 19:54 RBC (3.80-5.40) m/uL Hgb (11.4-16.0) gm/dL Hct (34.0-46.0) % MCHC (31.0-37.0) g/dL RDW (11.5-15.5) % Lymphocytes # (1.0-4.8) k/uL Chloride (98-107) mmol/L BUN (7-17) mg/dL Creatinine (0.52-1.04) mg/dL Glucose (74-99) mg/dL POC Glucose (mg/dL) 233 H 169 H 167 H (70-110) mg/dL Calcium (8.4-10.2) mg/dL 09/21/23 09/22/23 09/22/23 Range/Units 22:56 06:01 07:13 RBC 3.25 L (3.80-5.40) m/uL Hgb 9.2 L (11.4-16.0) gm/dL Hct 30.7 L (34.0-46.0) % MCHC 29.9 L (31.0-37.0) g/dL RDW 16.5 H (11.5-15.5) % Lymphocytes # 0.9 L (1.0-4.8) k/uL Chloride (98-107) mmol/L BUN (7-17) mg/dL Creatinine (0.52-1.04) mg/dL Glucose (74-99) mg/dL POC Glucose (mg/dL) 174 H 205 H (70-110) mg/dL Calcium (8.4-10.2) mg/dL 09/22/23 Range/Units 07:13 RBC (3.80-5.40) m/uL Hgb (11.4-16.0) gm/dL Hct (34.0-46.0) % MCHC (31.0-37.0) g/dL RDW (11.5-15.5) % Lymphocytes # (1.0-4.8) k/uL Chloride 108 H (98-107) mmol/L BUN 52 H (7-17) mg/dL Creatinine 2.02 H (0.52-1.04) mg/dL Glucose 163 H (74-99) mg/dL POC Glucose (mg/dL) (70-110) mg/dL Calcium 8.0 L (8.4-10.2) mg/dL Assessment and Plan (1) Pressure ulcer of right heel, stage 3 Current Visit: No Status: Acute Code(s): L89.613 - PRESSURE ULCER OF RIGHT HEEL, STAGE 3 SNOMED Code(s): 56181257151230 (2) Type 2 diabetes mellitus with foot ulcer Current Visit: No Status: Acute Code(s): E11.621 - TYPE 2 DIABETES MELLITUS WITH FOOT ULCER; L97.509 - NON-PRESSURE CHRONIC ULCER OTH PRT UNSP FOOT W UNSP SEVERITY SNOMED Code(s): 221595372 (3) UTI (urinary tract infection) Current Visit: Yes Status: Acute Code(s): N39.0 - URINARY TRACT INFECTION, SITE NOT SPECIFIED SNOMED Code(s): 47767579 (4) Aspiration pneumonia Current Visit: Yes Status: Acute Code(s): J69.0 - PNEUMONITIS DUE TO INHALATION OF FOOD AND VOMIT SNOMED Code(s): 782315581 Plan: 1patient with chronic nonhealing wound to the right heel area which has been there for a couple of months now patient overall wound base looks clean with no slough tissue in the wound base, patient to continue local wound care with Aquacel silver dressing change every 48 hours 2-patient did have cellulitis to the left chest wall site of previous dialysis catheter insertion and some purulent drainage reported by nursing staff, redness to the right chest wall has decreased no purulent drainage 3-patient to continue with daptomycin while inpatient and monitor clinical course closely Dictation was produced using [employer] dictation software. please excuse any grammatical, word or spelling errors. Time with Patient: Less than 30
--- NOTE | 2023-09-24 08:17 | P.PN ---
Subjective Progress Note Date: 09/23/23 Principal diagnosis: Reason for follow-up is right heel diabetic foot ulcer Patient is a 57-year-old female with a past medical history significant for diabetes mellitus hypertension hyperlipidemia history of renal insufficiency requiring dialysis currently not on dialysis and the patient also have a chronic nonhealing wound to the right heel area, present to the hospital with increasing shortness of breath and swelling concerning for fluid overload.Patient did have a cardiac arrest around 4 AM 08/23/2023 with the patient went into asystole got resuscitated intubated and transferred to the ICU subsequently have another cardiac arrest with PEA rhythm not resuscitated. On today's evaluation that is 09/23/2023, Patient is afebrile patient is currently on 3 L nasal cannula oxygen and denies having any shortness of breath, the patient denies any chest pain or cough, the patient denies any nausea vomiting did not have any abdominal pain and no diarrhea, patient seen to more awake and alert denies pain to the right chest wall and right foot Patient white count is 10.70 no BMP was done today Objective - Vital Signs Vital signs: Vital Signs Temp 97.6 F 09/23/23 14:00 Pulse 89 09/23/23 14:00 Resp 19 09/23/23 14:00 BP 164/82 09/23/23 14:00 Pulse Ox 97 09/23/23 14:00 FiO2 3 09/02/23 04:00 Intake & Output 09/22/23 09/23/23 09/23/23 18:59 06:59 18:59 Intake Total 490 Output Total 750 350 800 Balance -260 -350 -800 Intake: IV 10 Invasive Line 10 10 Oral 480 Output: Urine 750 350 800 Other: Voiding Method Indwelling Catheter Indwelling Catheter Indwelling Catheter # Bowel Movements 1 ABP, PAP, CO, CI - Last Documented Arterial Blood Pressure 125/73 - Exam GENERAL DESCRIPTION: Middle-aged female lying in bed in no distress RESPIRATORY SYSTEM: Unlabored breathing , decreased breath sounds at bases HEART: S1 S2 regular rate and rhythm , right chest wall wound is drying out no drainage ABDOMEN: Soft , no tenderness EXTREMITIES: Right heel wound is currently dressed no drainage Exam completed with the help of BIOCHEMICAL DEVELOPMENT ENGINEER - Labs CBC & Chem 7: 09/23/23 04:26 09/22/23 07:13 Labs: Abnormal Lab Results - Last 24 Hours (Table) 09/22/23 09/23/23 09/23/23 Range/Units 20:25 04:26 06:07 WBC 10.70 H (4.50-10.00) X 10*3/uL RBC 3.05 L (4.10-5.20) X 10*6/uL Hgb 8.6 L (12.0-15.0) g/dL Hct 29.3 L (37.2-46.3) % MCHC 29.4 L (32.0-37.0) g/dL RDW 16.7 H (11.5-14.5) % Immature Gran # 0.15 H (0.00-0.04) X 10*3/uL Neutrophils # 7.98 H (1.80-7.70) X 10*3/uL Monocytes # 1.06 H (0.20-1.00) X 10*3/uL Eosinophils # 0.50 H (0.04-0.35) X 10*3/uL NRBC/100 WBC Diff 0.02 H (0.00-0.01) X 10*3/uL POC Glucose (mg/dL) 284 H 222 H (70-110) mg/dL 09/23/23 09/23/23 Range/Units 12:00 16:34 WBC (4.50-10.00) X 10*3/uL RBC (4.10-5.20) X 10*6/uL Hgb (12.0-15.0) g/dL Hct (37.2-46.3) % MCHC (32.0-37.0) g/dL RDW (11.5-14.5) % Immature Gran # (0.00-0.04) X 10*3/uL Neutrophils # (1.80-7.70) X 10*3/uL Monocytes # (0.20-1.00) X 10*3/uL Eosinophils # (0.04-0.35) X 10*3/uL NRBC/100 WBC Diff (0.00-0.01) X 10*3/uL POC Glucose (mg/dL) 279 H 279 H (70-110) mg/dL Assessment and Plan (1) Pressure ulcer of right heel, stage 3 Current Visit: No Status: Acute Code(s): L89.613 - PRESSURE ULCER OF RIGHT HEEL, STAGE 3 SNOMED Code(s): 33517586969724 (2) Type 2 diabetes mellitus with foot ulcer Current Visit: No Status: Acute Code(s): E11.621 - TYPE 2 DIABETES MELLITUS WITH FOOT ULCER; L97.509 - NON-PRESSURE CHRONIC ULCER OTH PRT UNSP FOOT W UNSP SEVERITY SNOMED Code(s): 822060545 (3) UTI (urinary tract infection) Current Visit: Yes Status: Acute Code(s): N39.0 - URINARY TRACT INFECTION, SITE NOT SPECIFIED SNOMED Code(s): 44967976 (4) Aspiration pneumonia Current Visit: Yes Status: Acute Code(s): J69.0 - PNEUMONITIS DUE TO INHALATION OF FOOD AND VOMIT SNOMED Code(s): 499443345 Plan: 1patient with chronic nonhealing wound to the right heel area which has been there for a couple of months now patient overall wound base looks clean with no slough tissue in the wound base, patient to continue local wound care with Aquacel silver dressing change every 48 hours 2-patient did have cellulitis to the left chest wall site of previous dialysis catheter insertion and some purulent drainage reported by nursing staff, redness to the right chest wall has decreased no purulent drainage 3-patient to continue with daptomycin while inpatient and will finish therapy short course of oral doxycycline on discharge Multiple family members at bedside questions were answered Dictation was produced using [employer] software. please excuse any grammatical, word or spelling errors. Time with Patient: Less than 30
[2023-09-24 08:35] LABS: Basophils # (A) 0.08 X 10*3/uL (0.00-0.10); Basophils % (A) 0.9 %; Eosinophils # (A) 0.41 X 10*3/uL (0.04-0.35); Eosinophils % (A) 4.6 %; HCT 26.8 % (37.2-46.3); HGB 7.8 g/dL (12.0-15.0); Lymphocytes # (A) 0.84 X 10*3/uL (0.90-5.00); Lymphocytes % (A) 9.4 %; MCH 27.7 pg (27.0-32.0); MCHC 29.1 g/dL (32.0-37.0); Mean Platelet Volume 11.3 FL (9.5-12.2); Monocytes # (A) 0.81 X 10*3/uL (0.20-1.00); Monocytes % (A) 9.1 %; NRBC Per 100 WBC 0 X 10*3/uL (0.00-0.01); Platelet Count 217 X 10*3/uL (140-440); RBC 2.82 X 10*6/uL (4.10-5.20); RDW 17.2 % (11.5-14.5); WBC 8.93 X 10*3/uL (4.50-10.00)
[2023-09-24 08:57] LABS: BUN/Creat Ratio 30.56 Ratio (12.00-20.00); Calcium 8.5 mg/dL (8.7-10.3); Carbon Dioxide 24.3 mmol/L (21.6-31.8); Chloride 105 mmol/L (96-109); Glucose 122 mg/dL (70-110); Magnesium 2.1 mg/dL (1.5-2.4); Potassium 5.4 mmol/L (3.5-5.5); Sodium 138 mmol/L (135-145)
[2023-09-24 11:43] LABS: Glucose,Whole Blood 230 mg/dL (70-110)
--- NOTE | 2023-09-24 12:19 | P.PN ---
Subjective Progress Note Date: 09/24/23 The patient is seen today September 24, 2023 in follow-up on the regular medical floor. She is currently sitting up in a chair. Awake and alert in no acute distress. She is maintaining O2 saturations in the 90s on 3 L/min per nasal cannula. Afebrile. Hemodynamically stable. underwear cutter remains at the [facility]. She is status post 2 units of packed red blood cells this admission. Current hemoglobin 7.8. White count 8.9. Platelets 217. Sodium 138. Potassium 5.4. Bicarb 24. BUN 55. Creatinine 1.8. Glucose 122. She remains on daptomycin per ID services. Continued on bronchodilators. Remains on IV diuretics. Currently in a -1.8 L balance Objective - Vital Signs Vital signs: Vital Signs Temp 97.7 F 09/24/23 07:41 Pulse 92 09/24/23 08:00 Resp 18 09/24/23 08:00 BP 166/79 09/24/23 07:41 Pulse Ox 96 09/24/23 07:41 FiO2 3 09/02/23 04:00 Intake & Output 09/23/23 09/24/23 09/24/23 18:59 06:59 18:59 Output Total 800 1050 Balance -800 -1050 Output: Urine 800 1050 Uretheral ([place]) 325 Other: Voiding Method Indwelling Catheter Indwelling Catheter Toilet # Bowel Movements 1 5 ABP, PAP, CO, CI - Last Documented Arterial Blood Pressure 125/73 - Exam GENERAL EXAM: Alert, 58-year-old female, on 3 L nasal cannula, comfortable in no apparent distress. HEAD: Normocephalic. EYES: Normal reaction of pupils, equal size. NOSE: Clear with pink turbinates. THROAT: No erythema or exudates. NECK: No masses, no JVD. CHEST: No chest wall deformity. LUNGS: Equal air entry with no crackles, wheeze, rhonchi or dullness. CVS: S1 and S2 normal with no audible murmur, regular rhythm. ABDOMEN: No hepatosplenomegaly, normal bowel sounds, no guarding or rigidity. SPINE: No scoliosis or deformity SKIN: No rashes CENTRAL NERVOUS SYSTEM: No focal deficits, tone is normal in all 4 extremities. EXTREMITIES: There is no peripheral edema. No clubbing, no cyanosis. Peripheral pulses are intact. - Labs CBC & Chem 7: 09/24/23 04:27 09/24/23 04:27 Labs: Abnormal Lab Results - Last 24 Hours (Table) 09/23/23 09/23/23 09/24/23 Range/Units 16:34 21:40 04:27 RBC (4.10-5.20) X 10*6/uL Hgb (12.0-15.0) g/dL Hct (37.2-46.3) % MCHC (32.0-37.0) g/dL RDW (11.5-14.5) % Immature Gran # (0.00-0.04) X 10*3/uL Lymphocytes # (0.90-5.00) X 10*3/uL Eosinophils # (0.04-0.35) X 10*3/uL BUN 55.0 H (9.0-27.0) mg/dL Creatinine 1.8 H (0.6-1.5) mg/dL Est GFR (CKD-EPI) 32 L (>=60) BUN/Creatinine Ratio 30.56 H (12.00-20.00) Ratio Glucose 122 H (70-110) mg/dL POC Glucose (mg/dL) 279 H 286 H (70-110) mg/dL Calcium 8.5 L (8.7-10.3) mg/dL 09/24/23 09/24/23 09/24/23 Range/Units 04:27 06:39 11:41 RBC 2.82 L (4.10-5.20) X 10*6/uL Hgb 7.8 L (12.0-15.0) g/dL Hct 26.8 L (37.2-46.3) % MCHC 29.1 L (32.0-37.0) g/dL RDW 17.2 H (11.5-14.5) % Immature Gran # 0.09 H (0.00-0.04) X 10*3/uL Lymphocytes # 0.84 L (0.90-5.00) X 10*3/uL Eosinophils # 0.41 H (0.04-0.35) X 10*3/uL BUN (9.0-27.0) mg/dL Creatinine (0.6-1.5) mg/dL Est GFR (CKD-EPI) (>=60) BUN/Creatinine Ratio (12.00-20.00) Ratio Glucose (70-110) mg/dL POC Glucose (mg/dL) 167 H 230 H (70-110) mg/dL Calcium (8.7-10.3) mg/dL Assessment and Plan Assessment: Cardiopulmonary arrest, x 2, with cardiopulmonary resuscitation, and return of spontaneous circulation on 08/23/23 Acute hypoxic respiratory failure, post cardiac arrest. S/P intubation, and mechanical ventilation, secondary to cardiopulmonary arrest, August 23, 2023. She was extubated on 08/25/23. Currently on 3 L/min per nasal cannula Encephalopathy, multifactorial, suspect post anoxic encephalopathy and cardiac arrest. Currently on risperidone and Requip for ongoing restlessness and encephalopathy. Patient is currently on risperidone 2 mg p.o. twice daily History of congestive heart failure (HFPEF) Coronary artery disease/cardiomyopathy and the patient is post non-ST segment elevation myocardial infarction Stage III chronic kidney disease Right heel pressure ulcer, stage III Subacute fracture of the medial and lateral malleolus History of hypertension History of hyperlipidemia History of type 2 diabetes mellitus History of severe pulmonary hypertension History of COPD History of peripheral neuropathy Chest wall pain related to CPR Plan: The patient was seen and evaluated Labs and medications reviewed Currently stable on 3 L nasal cannula Titrate down the FiO2 as tolerated underwear cutter remains at the bedside Discharge planning in place This patient was seen independently by the pulmonary nurse practitioner addressing pulmonary issues I have personally seen and examined the patient, performed the documentation and the assessment and plan as written. Number of minutes spent on the visit: 25.
--- NOTE | 2023-09-24 12:28 | P.PN ---
Subjective Patient is seen for follow-up for acute kidney injury. patient remains confused and requiring a sitter. serum creatinine at 1.8 mg/dL. Patient is currently being diuresed. Objective - Vital Signs Vital signs: Vital Signs Temp 97.7 F 09/24/23 07:41 Pulse 92 09/24/23 08:00 Resp 18 09/24/23 08:00 BP 166/79 09/24/23 07:41 Pulse Ox 96 09/24/23 07:41 FiO2 3 09/02/23 04:00 Intake & Output 09/23/23 09/24/23 09/24/23 18:59 06:59 18:59 Output Total 800 1050 Balance -800 -1050 Output: Urine 800 1050 Uretheral ([place]) 325 Other: Voiding Method Indwelling Catheter Indwelling Catheter Toilet # Bowel Movements 1 5 ABP, PAP, CO, CI - Last Documented Arterial Blood Pressure 125/73 - Exam Patient is awake. She is comfortable. Confused Examination of the heart S1 and S2 Examination of the lungs bilateral breath sounds are heard Abdomen is soft nontender Examination of lower extremities shows 2+ edema. Right leg is in cast - Labs CBC & Chem 7: 09/24/23 04:27 09/24/23 04:27 Labs: Abnormal Lab Results - Last 24 Hours (Table) 09/23/23 09/23/23 09/24/23 Range/Units 16:34 21:40 04:27 RBC (4.10-5.20) X 10*6/uL Hgb (12.0-15.0) g/dL Hct (37.2-46.3) % MCHC (32.0-37.0) g/dL RDW (11.5-14.5) % Immature Gran # (0.00-0.04) X 10*3/uL Lymphocytes # (0.90-5.00) X 10*3/uL Eosinophils # (0.04-0.35) X 10*3/uL BUN 55.0 H (9.0-27.0) mg/dL Creatinine 1.8 H (0.6-1.5) mg/dL Est GFR (CKD-EPI) 32 L (>=60) BUN/Creatinine Ratio 30.56 H (12.00-20.00) Ratio Glucose 122 H (70-110) mg/dL POC Glucose (mg/dL) 279 H 286 H (70-110) mg/dL Calcium 8.5 L (8.7-10.3) mg/dL 09/24/23 09/24/23 09/24/23 Range/Units 04:27 06:39 11:41 RBC 2.82 L (4.10-5.20) X 10*6/uL Hgb 7.8 L (12.0-15.0) g/dL Hct 26.8 L (37.2-46.3) % MCHC 29.1 L (32.0-37.0) g/dL RDW 17.2 H (11.5-14.5) % Immature Gran # 0.09 H (0.00-0.04) X 10*3/uL Lymphocytes # 0.84 L (0.90-5.00) X 10*3/uL Eosinophils # 0.41 H (0.04-0.35) X 10*3/uL BUN (9.0-27.0) mg/dL Creatinine (0.6-1.5) mg/dL Est GFR (CKD-EPI) (>=60) BUN/Creatinine Ratio (12.00-20.00) Ratio Glucose (70-110) mg/dL POC Glucose (mg/dL) 167 H 230 H (70-110) mg/dL Calcium (8.7-10.3) mg/dL Assessment and Plan Assessment: 1. Acute kidney injury secondary to ATN secondary to cardiorenal syndrome and cardiac arrest. Creatinine at 1.8 today.. Patient was on hemodialysis in the past with last treatment being July 02, 2023. Dialysis catheter it is now removed. Renal US no hydronephrosis. 2. Volume overload. 3. Acute on chronic diastolic CHF. 4. Diabetes mellitus. 5. Right foot wound. 6. Coronary disease with cardiac stenting. 7. Status post PEA arrest with concern for anoxic encephalopathy. 8. Septic Shock-urine culture is growing E. coli. Catheter tip culture is growing corynebacterium, blood culture negative so far. 9. Metabolic acidosis, nongap, improved 10. Hypernatremia, status post D5W, improved Plan: continue with IV Lasix Repeat labs in a.m.
--- NOTE | 2023-09-24 13:03 | P.PN ---
Subjective Progress Note Date: 09/24/23 CHIEF COMPLAINT: GI bleed HISTORY OF PRESENT ILLNESS: Patient is status post EGD revealing antral gastrit is. No further bleeding reported. Nursing staff reports stools brown. Patient denies any abdominal pain. hgb from 8.6 to 7.8. Patient on IV lasix for volume overload PHYSICAL EXAM: VITAL SIGNS: Reviewed. GENERAL: Well-developed in no acute distress. ABDOMEN: Soft. Nondistended. Nontender. ASSESSMENT: 1. Acute GI bleed with melanotic stools and now resolved. Status post EGD revealing antral gastritis PLAN: -Continue PPI -Continue regular diet Physician Hot Roll Laminator note has been reviewed by physician. Signing provider agrees with the documented findings, assessment, and plan of care. Objective - Vital Signs Vital signs: Vital Signs Temp 97.7 F 09/24/23 07:41 Pulse 92 09/24/23 08:00 Resp 18 09/24/23 08:00 BP 166/79 09/24/23 07:41 Pulse Ox 96 09/24/23 07:41 FiO2 3 09/02/23 04:00 Intake & Output 09/23/23 09/24/23 09/24/23 18:59 06:59 18:59 Output Total 800 1050 Balance -800 -1050 Output: Urine 800 1050 Uretheral ([place]) 325 Other: Voiding Method Indwelling Catheter Indwelling Catheter Toilet # Bowel Movements 1 5 ABP, PAP, CO, CI - Last Documented Arterial Blood Pressure 125/73 - Labs CBC & Chem 7: 09/24/23 04:27 09/24/23 04:27 Labs: Abnormal Lab Results - Last 24 Hours (Table) 09/23/23 09/23/23 09/24/23 Range/Units 16:34 21:40 04:27 RBC (4.10-5.20) X 10*6/uL Hgb (12.0-15.0) g/dL Hct (37.2-46.3) % MCHC (32.0-37.0) g/dL RDW (11.5-14.5) % Immature Gran # (0.00-0.04) X 10*3/uL Lymphocytes # (0.90-5.00) X 10*3/uL Eosinophils # (0.04-0.35) X 10*3/uL BUN 55.0 H (9.0-27.0) mg/dL Creatinine 1.8 H (0.6-1.5) mg/dL Est GFR (CKD-EPI) 32 L (>=60) BUN/Creatinine Ratio 30.56 H (12.00-20.00) Ratio Glucose 122 H (70-110) mg/dL POC Glucose (mg/dL) 279 H 286 H (70-110) mg/dL Calcium 8.5 L (8.7-10.3) mg/dL 09/24/23 09/24/23 09/24/23 Range/Units 04:27 06:39 11:41 RBC 2.82 L (4.10-5.20) X 10*6/uL Hgb 7.8 L (12.0-15.0) g/dL Hct 26.8 L (37.2-46.3) % MCHC 29.1 L (32.0-37.0) g/dL RDW 17.2 H (11.5-14.5) % Immature Gran # 0.09 H (0.00-0.04) X 10*3/uL Lymphocytes # 0.84 L (0.90-5.00) X 10*3/uL Eosinophils # 0.41 H (0.04-0.35) X 10*3/uL BUN (9.0-27.0) mg/dL Creatinine (0.6-1.5) mg/dL Est GFR (CKD-EPI) (>=60) BUN/Creatinine Ratio (12.00-20.00) Ratio Glucose (70-110) mg/dL POC Glucose (mg/dL) 167 H 230 H (70-110) mg/dL Calcium (8.7-10.3) mg/dL
--- NOTE | 2023-09-24 14:40 | P.PN ---
Subjective Progress Note Date: 09/24/23 History of Present Illness: The patient is a 57-year-old female with known history of hypertension, hyper lipidemia, diabetes mellitus as well as a history of coronary disease status post stenting of the RCA and chronic kidney disease who presented with dyspnea and had a cardiopulmonary arrest requiring CPR and mechanical ventilation. She is extubated, complaining of chest wall tenderness post CPR. She continues to be in sinus mechanism and hemodynamically stable. She had some bradycardia earlier and was started on IV dopamine. She is in sinus mechanism with no further bradycardia. Her urinary output has been stable. Her initial echo on presentation showed a preserved systolic function subsequently was found to have cardiomyopathy but that was done shortly after the event. She has a subacute fracture of the medial and lateral malleolus on the right side. August 26: The patient is sedated, she was quite agitated during the night. She had few episodes of sinus bradycardia, brief. She had no evidence of high-grade AV block. Her urinary output is stable. Her blood pressure is under good control without any vasopressors. Her repeat echocardiogram showed a preserved systolic function. She has been evaluated by neurology for possible anoxic encephalopathy. August 1: The patient is awake, confused. In sinus mechanism with no further episodes of high-grade AV block. Her blood pressure is stable. Her urinary output stable. There is no evidence of atrial fibrillation or ventricular ectopic activity. Repeat echocardiogram showed a normal left ventricle systolic function. August 28: The patient is sedated. She was agitated and confused during the night. She had no further episodes of bradycardia arrhythmia. Her blood pressure has been stable. She continues to be intubated. She is undergoing an EEG to evaluate her neurological status. There is no evidence of atrial fibrillation or ventricular tachyarrhythmia. August 29: The patient is more awake continues to have some episodes of confusion. She continues to be in sinus mechanism with no arrhythmia. Her EEG showed some improvement. Her urinary output has been good. Her blood pressure is stable and there is no evidence of significant hypotension. September 14, 2023 Seen and examined at bedside this a.m. Patient is confused and is in delirium state. She is needing a sitter to be present to calm her down. Mild volume overload 09/15 Patient has been transferred out of the intensive care unit. She is scheduled for EGD today due to GI bleed and stool for occult blood. Plavix is currently on hold but she has been continued on aspirin 81 mg daily. Patient remains quite confused with sitter at the bedside. Blood pressure 144/76, heart rate 82, pulse ox 90% on room air. Repeat blood work reveals stable hemoglobin of 9.4, BUN 30 creatinine 1.54. She is s/p transfusion of 2 units of packed RBCs. Patient has been picking at her nose and face and there is dried blood around her nose and mouth and both hands. 09/19 Patient has been on the [facility] floor most of this week and cardiology signed off as of 09/17. We have been reconsulted regarding bradycardia. Patient's heart rate was running in the 30s during the night and also today. Sinus rhythm. Patient received metoprolol tartrate 12.5 mg this morning. Patient is asymptomatic. On 09/15, patient underwent EGD that revealed antral gastritis. Pathology positive for mild chronic gastritis. She has not been resumed on DAPT. 09/20 Patient is seen today in follow-up. We have been reconsulted regarding bradycardia. Lopressor has been discontinued but patient did receive it yesterday morning. Heart rates are running between 43 and 62. Blood pressure 122/65, pulse ox 99% on 3 L nasal cannula. Telemetry sinus rhythm at 78 bpm. EKG sinus at 40 bpm. Patient denies lightheadedness or dizziness. Patient remains confused with industrial safety engineer at the bedside. 09/21 Feeling good today, some confusion. No chest pain or pressure. No lightheadedness or dizziness. Hgb 9.2, creat 2.0. Blood pressure not well controlled. 09/23/2023 She denies any chest pain or pressure. She reports her breathing is better. Right leg swelling is slightly worse today. Blood pressure is not well- controlled. 09/23 Blood pressure 132/85, heart rate in the 90s, pulse ox 98% on 3 L nasal cannula. Repeat blood work reveals hemoglobin 7.8. BUN 55 creatinine 1.8. Potassium 5.4. Updated family member at bedside. Patient continues to have sitter. She continues to have confusion. She denies chest pain. Breathing seems to be stable. Physical Examination: 57-year-old female, awake with some confusion, improved Head: Normocephalic. Eyes: Sclerae nonicteric. Neck: Good carotid upstroke, no bruit, mild elevated jugular venous distention. Lungs: Clear anteriorly Heart: Regular rate and rhythm, S1-S2, no S3, no rub. No murmur. Abdomen: Soft , positive bowel soun Extremities: Mild edema bilateral lower extremity R>L Impression: 1. Status post cardiopulmonary arrest, etiology unclear. No clear evidence of acute ischemic event. 2. Status post stenting of the RCA during prior admission, May 2023 3. Chronic kidney disease 4. Chest wall discomfort, stable 5. History of hyperlipidemia 6. History of hypertension 7. Bradycardia resolved 8. History of diabetes 9. Cardiomyopathy resolved 10. Anoxic encephalopathy, postarrest, improving 11. Delirium 12. Right heel wound 13. Black tarry stools, concern of GI bleeding Plan: Added aldactone 25mg for better blood pressure management. Ideally add losartan when kidney function improves. Hydralizine added by nephro. Lasix per nephro for lower extremity edema. Patient is currently on IV Lasix 40 mg every 12 hours Continue aspirin and Plavix, no black stools and cleared by general surgery Continue to hold beta-satnam Continue telemetry monitoring Plan for event monitor at the time of discharge We will follow. Nurse practitioner note has been reviewed, I agree with documented findings and plan of care. Patient was seen and examined. Objective - Vital Signs Vital signs: Vital Signs Temp 96.6 F L 09/24/23 12:43 Pulse 94 09/24/23 12:43 Resp 17 09/24/23 12:43 BP 132/85 09/24/23 12:43 Pulse Ox 98 09/24/23 12:43 FiO2 3 09/02/23 04:00 Intake & Output 09/23/23 09/24/23 09/24/23 18:59 06:59 18:59 Output Total 800 1050 Balance -800 -1050 Output: Urine 800 1050 Uretheral ([place]) 325 Other: Voiding Method Indwelling Catheter Indwelling Catheter Toilet # Bowel Movements 1 5 ABP, PAP, CO, CI - Last Documented Arterial Blood Pressure 125/73 - Labs CBC & Chem 7: 09/24/23 04:27 09/24/23 04:27 Labs: Abnormal Lab Results - Last 24 Hours (Table) 09/23/23 09/23/23 09/24/23 Range/Units 16:34 21:40 04:27 RBC (4.10-5.20) X 10*6/uL Hgb (12.0-15.0) g/dL Hct (37.2-46.3) % MCHC (32.0-37.0) g/dL RDW (11.5-14.5) % Immature Gran # (0.00-0.04) X 10*3/uL Lymphocytes # (0.90-5.00) X 10*3/uL Eosinophils # (0.04-0.35) X 10*3/uL BUN 55.0 H (9.0-27.0) mg/dL Creatinine 1.8 H (0.6-1.5) mg/dL Est GFR (CKD-EPI) 32 L (>=60) BUN/Creatinine Ratio 30.56 H (12.00-20.00) Ratio Glucose 122 H (70-110) mg/dL POC Glucose (mg/dL) 279 H 286 H (70-110) mg/dL Calcium 8.5 L (8.7-10.3) mg/dL 09/24/23 09/24/23 09/24/23 Range/Units 04:27 06:39 11:41 RBC 2.82 L (4.10-5.20) X 10*6/uL Hgb 7.8 L (12.0-15.0) g/dL Hct 26.8 L (37.2-46.3) % MCHC 29.1 L (32.0-37.0) g/dL RDW 17.2 H (11.5-14.5) % Immature Gran # 0.09 H (0.00-0.04) X 10*3/uL Lymphocytes # 0.84 L (0.90-5.00) X 10*3/uL Eosinophils # 0.41 H (0.04-0.35) X 10*3/uL BUN (9.0-27.0) mg/dL Creatinine (0.6-1.5) mg/dL Est GFR (CKD-EPI) (>=60) BUN/Creatinine Ratio (12.00-20.00) Ratio Glucose (70-110) mg/dL POC Glucose (mg/dL) 167 H 230 H (70-110) mg/dL Calcium (8.7-10.3) mg/dL
--- NOTE | 2023-09-24 16:06 | P.PN ---
Subjective Progress Note Date: 09/24/23 Principal diagnosis: Reason for follow-up is right heel diabetic foot ulcer Patient is a 57-year-old female with a past medical history significant for diabetes mellitus hypertension hyperlipidemia history of renal insufficiency requiring dialysis currently not on dialysis and the patient also have a chronic nonhealing wound to the right heel area, present to the hospital with increasing shortness of breath and swelling concerning for fluid overload.Patient did have a cardiac arrest around 4 AM 08/23/2023 with the patient went into asystole got resuscitated intubated and transferred to the ICU subsequently have another cardiac arrest with PEA rhythm not resuscitated. On today's evaluation that is 09/24/2023, patient has been afebrile, patient is breathing comfortably and is currently on 3 L nasal cannula oxygen, patient denies having any significant cough no chest pain shortness of breath, patient denies nausea vomiting or diarrhea and no abdominal pain. Patient white count is 8.93, creatinine is 1.8 Objective - Vital Signs Vital signs: Vital Signs Temp 96.6 F L 09/24/23 12:43 Pulse 94 09/24/23 12:43 Resp 17 09/24/23 12:43 BP 132/85 09/24/23 12:43 Pulse Ox 98 09/24/23 12:43 FiO2 3 09/02/23 04:00 Intake & Output 09/23/23 09/24/23 09/24/23 18:59 06:59 18:59 Output Total 800 1050 Balance -800 -1050 Output: Urine 800 1050 Uretheral ([place]) 325 Other: Voiding Method Indwelling Catheter Indwelling Catheter Toilet # Bowel Movements 1 5 ABP, PAP, CO, CI - Last Documented Arterial Blood Pressure 125/73 - Exam GENERAL DESCRIPTION: Middle-aged female lying in bed in no distress RESPIRATORY SYSTEM: Unlabored breathing , decreased breath sounds at bases HEART: S1 S2 regular rate and rhythm , right chest wall wound is drying out no drainage ABDOMEN: Soft , no tenderness EXTREMITIES: Right heel wound is currently dressed no drainage Exam completed with the help of [employer] MEDIA SPECIALIST - Labs CBC & Chem 7: 09/24/23 04:27 09/24/23 04:27 Labs: Abnormal Lab Results - Last 24 Hours (Table) 09/23/23 09/23/23 09/24/23 Range/Units 16:34 21:40 04:27 RBC (4.10-5.20) X 10*6/uL Hgb (12.0-15.0) g/dL Hct (37.2-46.3) % MCHC (32.0-37.0) g/dL RDW (11.5-14.5) % Immature Gran # (0.00-0.04) X 10*3/uL Lymphocytes # (0.90-5.00) X 10*3/uL Eosinophils # (0.04-0.35) X 10*3/uL BUN 55.0 H (9.0-27.0) mg/dL Creatinine 1.8 H (0.6-1.5) mg/dL Est GFR (CKD-EPI) 32 L (>=60) BUN/Creatinine Ratio 30.56 H (12.00-20.00) Ratio Glucose 122 H (70-110) mg/dL POC Glucose (mg/dL) 279 H 286 H (70-110) mg/dL Calcium 8.5 L (8.7-10.3) mg/dL 09/24/23 09/24/23 09/24/23 Range/Units 04:27 06:39 11:41 RBC 2.82 L (4.10-5.20) X 10*6/uL Hgb 7.8 L (12.0-15.0) g/dL Hct 26.8 L (37.2-46.3) % MCHC 29.1 L (32.0-37.0) g/dL RDW 17.2 H (11.5-14.5) % Immature Gran # 0.09 H (0.00-0.04) X 10*3/uL Lymphocytes # 0.84 L (0.90-5.00) X 10*3/uL Eosinophils # 0.41 H (0.04-0.35) X 10*3/uL BUN (9.0-27.0) mg/dL Creatinine (0.6-1.5) mg/dL Est GFR (CKD-EPI) (>=60) BUN/Creatinine Ratio (12.00-20.00) Ratio Glucose (70-110) mg/dL POC Glucose (mg/dL) 167 H 230 H (70-110) mg/dL Calcium (8.7-10.3) mg/dL Assessment and Plan (1) Pressure ulcer of right heel, stage 3 Current Visit: No Status: Acute Code(s): L89.613 - PRESSURE ULCER OF RIGHT HEEL, STAGE 3 SNOMED Code(s): 73169198403323 (2) Type 2 diabetes mellitus with foot ulcer Current Visit: No Status: Acute Code(s): E11.621 - TYPE 2 DIABETES MELLITUS WITH FOOT ULCER; L97.509 - NON-PRESSURE CHRONIC ULCER OTH PRT UNSP FOOT W UNSP SEVERITY SNOMED Code(s): 238557863 (3) UTI (urinary tract infection) Current Visit: Yes Status: Acute Code(s): N39.0 - URINARY TRACT INFECTION, SITE NOT SPECIFIED SNOMED Code(s): 55166615 (4) Aspiration pneumonia Current Visit: Yes Status: Acute Code(s): J69.0 - PNEUMONITIS DUE TO INHALATION OF FOOD AND VOMIT SNOMED Code(s): 669664875 Plan: 1patient with chronic nonhealing wound to the right heel area which has been there for a couple of months now patient overall wound base looks clean with no slough tissue in the wound base, patient to continue local wound care with Aquacel silver dressing change every 48 hours 2-patient did have cellulitis to the left chest wall site of previous dialysis catheter insertion and some purulent drainage reported by nursing staff, redness to the right chest wall has decreased no purulent drainage 3-patient is currently being treated with daptomycin and monitor clinical course closely Dictation was produced using LR[employer] dictation software. please excuse any grammatical, word or spelling errors. Time with Patient: Less than 30
[2023-09-24 17:05] LABS: Glucose,Whole Blood 368 mg/dL (70-110)
[2023-09-24] MEDS: SODIUM FERRIC GLUCONAT-SUCROSE 125 MG in SODIUM CHLORIDE 0.9% 100 ML IVPB ONE (17:25)
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
--- NOTE | 2023-09-24 20:02 | P.PN ---
Subjective Progress Note Date: 09/24/23 57-year-old female came in with complaints of shortness of breath and orthopnea found to be in congestive heart failure exacerbation patient has congestive heart failure with reduced ejection fraction in the past patient has increasing pedal edema. Patient also has an ulcer in the right foot stage III-IV which appeared to be infected we will consult wound care and infectious disease. Patient was on hemodialysis during last hospitalization her creatinine presently is 1.5 which is significantly improved patient potassium is 5.5, patient is on Entresto and Aldactone Aldactone will be held Entresto will be continued since she is receiving IV Lasix and expecting her potassium to improve if it does not improve or get worse then Entresto need to be discontinued as well. Patient has hypervolemic hyponatremia and hyperglycemia. 08/21/2023 Was evaluated today on the medical floor. Patient was continued on IV Lasix overnight however she was no longer reporting any shortness of breath and her lower extremity edema has improved. She was taken off of the Lasix at this time due to increased creatinine up to 2.31 additionally potassium remains elevated at 5.7. Echocardiogram comes back showing an improved ejection fraction of 60 to 65% because of this and also the hyperkalemia patient will not be continued on entresto. Patient was evaluated by infectious disease who felt like that heel ulcer on the right side was more likely a pressure injury stage III and is recommending local wound care to continue with Aquacel. Patient is reporting significant pain to the right foot and feels like it is fractured. Upon review of the patient's chart she did have a x-ray completed of this 12 days ago ordered by her floor care technician Dr. Mayen. Ankle x-ray did review a mildly displaced acute distal fibular fracture. Repeat x-ray of the foot and ankle completed today does reveal a subacute fractures of the medial and lateral malleolus. The lateral malleolus fracture was seen on the patient's prior exam the medial malleolus fracture may be new in the interval and this would be considered an unstable ankle fracture. There is interval 6 mm displacement of the lateral malleolus. There is a deep soft tissue ulcer at the plantar heel with no clear radiographic findings of a contagious osteomyelitis at this time. Orthooedics was consulted for this. 08/22/2023 Patient evaluated in follow-up today resting in bed. She was taken off of the Lasix remains off at this time. Bladder scan was requested and not done yesterday to rule out urinary retention, creatinine today is increased up to 2.56. Bladder scan was done require urinary straight catheterization of 550 mL taken out. Urinalysis was sent which is significantly abnormal. Patient is also noted to have multiple genital lesions which appear wartlike she admits to not having any routine gynecological screenings for many years. She is not having any vaginal bleeding or discharge. Renal ultrasound has been ordered to rule out any obstructive uropathy. 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 Patient upon arrival to the intensive care unit had another episode of cardiac arrest patient had bradycardia while on pressors in the ICU patient was intubated following the first cardiac arrest and is currently on the mechanical ventilator 50% FiO2. Chest x-ray showing similar interstitial and patchy component airspace disease right greater than left. There is a possible trace left pleural effusion. A brain CT which shows no acute intracranial process. Blood work today shows a white blood cell count of 13.8, hemoglobin 9.5, sodium level of 135, BUN of 62, creatinine of 2.76. AST ALT and alk phosphatase are significantly elevated consistent with a shock liver. TSH 3.310. Urinalysis is abnormal. Her urine culture is showing gram-negative bacilli patient is covered for the urinary tract infection as well as aspiration with IV Zosyn being managed by infectious disease. Patient is currently sedated with propofol and did require vasopressor support with Levophed which has been weaned at this time. Will discontinue the gabapentin patient is continued on aspirin Plavix and statin has been placed on hold. There is concern for possible arrhythmia precipitating the asystole additionally we need to rule out embolism and a D-dimer has been ordered. 08/24/2023 Patient is seen in follow-up today continues in the ICU on mechanical ventilation. FiO2 is 50% although titrating and was just placed at 40% with a PEEP of 5. Chest x-ray today shows that the ET tube is 7 mm from the sonam suggesting a pulled back 2 cm and reassess and also suspected underlying vascular congestion. Neuro is following and per nursing staff patient is following some simple commands and undergoing sedation holidays. Patient noted to have reduced EF of 30 to 35% and cardiology had been following. Will reconsult and appreciate input and recommendations. patient did have dialysis catheter removed and sent for cultures which are pending. Infectious disease following and patient is maintained on antibiotic. D-dimer is elevated above 16 and will attempt to obtain a VQ scan.57-year-old female came in with complaints of shortness of breath and orthopnea found to be in congestive heart failure exacerbation patient has congestive heart failure with reduced ejection fraction in the past patient has increasing pedal edema. Patient also has an ulcer in the right foot stage III-IV which appeared to be infected we will consult wound care and infectious disease. Patient was on hemodialysis during last hospitalization her creatinine presently is 1.5 which is significantly improved patient potassium is 5.5, patient is on Entresto and Aldactone Aldactone will be held Entresto will be continued since she is receiving IV Lasix and expecting her potassium to improve if it does not improve or get worse then Entresto need to be discontinued as well. Patient has hypervolemic hyponatremia and hyperglycemia. 08/21/2023 Was evaluated today on the medical floor. Patient was continued on IV Lasix overnight however she was no longer reporting any shortness of breath and her lower extremity edema has improved. She was taken off of the Lasix at this time due to increased creatinine up to 2.31 additionally potassium remains elevated at 5.7. Echocardiogram comes back showing an improved ejection fraction of 60 to 65% because of this and also the hyperkalemia patient will not be continued on entresto. Patient was evaluated by infectious disease who felt like that heel ulcer on the right side was more likely a pressure injury stage III and is recommending local wound care to continue with Aquacel. Patient is reporting significant pain to the right foot and feels like it is fractured. Upon review of the patient's chart she did have a x-ray completed of this 12 days ago ordered by her floor care technician Dr. Mayen. Ankle x-ray did review a mildly displaced acute distal fibular fracture. Repeat x-ray of the foot and ankle completed today does reveal a subacute fractures of the medial and lateral malleolus. The lateral malleolus fracture was seen on the patient's prior exam the medial malleolus fracture may be new in the interval and this would be considered an unstable ankle fracture. There is interval 6 mm displacement of the lateral malleolus. There is a deep soft tissue ulcer at the plantar heel with no clear radiographic findings of a contagious osteomyelitis at this time. Orthooedics was consulted for this. 08/22/2023 Patient evaluated in follow-up today resting in bed. She was taken off of the Lasix remains off at this time. Bladder scan was requested and not done yesterday to rule out urinary retention, creatinine today is increased up to 2.56. Bladder scan was done require urinary straight catheterization of 550 mL taken out. Urinalysis was sent which is significantly abnormal. Patient is also noted to have multiple genital lesions which appear wartlike she admits to not having any routine gynecological screenings for many years. She is not having any vaginal bleeding or discharge. Renal ultrasound has been ordered to rule out any obstructive uropathy. 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 Patient upon arrival to the intensive care unit had another episode of cardiac arrest patient had bradycardia while on pressors in the ICU patient was intubated following the first cardiac arrest and is currently on the mechanical ventilator 50% FiO2. Chest x-ray showing similar interstitial and patchy component airspace disease right greater than left. There is a possible trace left pleural effusion. A brain CT which shows no acute intracranial process. Blood work today shows a white blood cell count of 13.8, hemoglobin 9.5, sodium level of 135, BUN of 62, creatinine of 2.76. AST ALT and alk phosphatase are significantly elevated consistent with a shock liver. TSH 3.310. Urinalysis is abnormal. Her urine culture is showing gram-negative bacilli patient is covered for the urinary tract infection as well as aspiration with IV Zosyn being managed by infectious disease. Patient is currently sedated with propofol and did require vasopressor support with Levophed which has been weaned at this time. Will discontinue the gabapentin patient is continued on aspirin Plavix and statin has been placed on hold. There is concern for possible arrhythmia precipitating the asystole additionally we need to rule out embolism and a D-dimer has been ordered. 08/24/2023 Patient is seen in follow-up today continues in the ICU on mechanical ventil ation. FiO2 is 50% although titrating and was just placed at 40% with a PEEP of 5. Chest x-ray today shows that the ET tube is 7 mm from the sonam suggesting a pulled back 2 cm and reassess and also suspected underlying vascular congestion. Neuro is following and per nursing staff patient is following some simple commands and undergoing sedation holidays. Patient noted to have reduced EF of 30 to 35% and cardiology had been following. Will reconsult and appreciate input and recommendations. patient did have dialysis catheter removed and sent for cultures which are pending. Infectious disease following and patient is maintained on antibiotic. D-dimer is elevated above 16 and will atte mpt to obtain a VQ scan. 08/25/23 : Patient seen and evaluated at bedside, patient extubated around noon, transition to 5 L of oxygen to nasal cannula. Family at bedside, blood work reviewed hemoglobin 10.3, serum chemistry reviewed sodium 140 potassium 4.8 BUN 57 creatinine 2.49 calcium of 7. 08/26/23 : Patient seen and evaluated at bedside, patient remains in medical ICU, does complain of chest pain from CPR. Patient has been weaned off dopamine, cardiology following, blood work reviewed, hemoglobin 8.5 platelet count of 217, serum chemistry shows sodium 141 BUN 51 creatinine 2.28. Followed up by nephrology as well MARYLOU secondary to ATN continue to monitor intake and output 08/27/23: Patient seen and evaluated bedside, on evaluation patient is disoriented, patient is drowsy however likely having acute delirium. Seen by cardiology echocardiogram shows preserved ejection fraction continue with current medical management, patient on Precedex for acute delirium, continue to remain on oxygen supplementation with nasal cannula blood work reviewed CBC showed WBC 8.2 hemoglobin 8.6 serum chemistry showed creatinine of 2.22. Patient remains delirious, daughter at bedside all questions answered 08/28/2023 Patient was agitated earlier requiring Seroquel and Placed on Precedex because she was has risk to self and others Currently when I saw the patient she was sleepy However she is not tachypneic show does not look in pain. Vitals are stable She is saturating 91% on 2 L oxygen via nasal cannula She remains on Zosyn for pneumonia and UTI She is on normal saline at 50 mL/h 08/29/2023 Patient remains sleepy, she still has some encephalopathy But she is on Precedex which will be tapered off by pulmonary team today to assess her mentation as well. Patient has been followed by neurology for suspected anoxic brain injury after her cardiac arrest and return of circulation on 08/22. There is no evidence of seizure-like activity She has catheter tip infection with culture growing Corynebacterium species and she is currently covered with Zosyn which also help for her right heel pressure ulcer and aspiration pneumonia and UTI. Cardiology evaluated the patient and there is no clear evidence for her cardiac arrest although she has history of coronary artery disease and previous stents. Currently with no chest pain. She remains on aspirin and Plavix, gentle hydration, IV steroids 08/30/2023 Today her sedation remains off however patient mentation not completely resolved, it is somewhat better as she was more sleepy yesterday She is eating okay, swallowing is fine She was started on IV Lasix twice daily per washer and crusher tender. She has good urine output and normal send discontinued She is hemodynamically stable and oxygenation is acceptable Remains on aspirin and Plavix and Seroquel 08/31/23: Seen and evaluated at bedside, patient remains on 4 L of oxygen, blood work reviewed, WBC 7.3 hemoglobin 9.1 platelet count of 203 glucose 119. CBC reviewed showed WBC 7.3 hemoglobin 9.1 platelet count of 203.. Neurology consulted and following. Patient is awake and alert able to answer questions and follow commands sister at bedside all questions answered 09/01/23: Seen and evaluated at bedside, patient vitals reviewed, serum chemistry reviewed sodium 145 potassium 4.6 creatinine 2.71, CBC reviewed patient remains on IV Zosyn , appreciate input from nephrology continue patient on IV Lasix, delirium persist 09/02/23: Patient seen and evaluated bedside, patient been admitted for cardiopulmonary arrest, respiratory failure s/p extubation on nasal cannula however continues to remain delirious. Blood work reviewed hemoglobin 8.8, platelet count 226, serum chemistry reviewed creatinine 2.55 potassium 4.5. MRI brain has been ordered which is pending, patient remains disoriented 09/03/2023 Patient is seen in follow-up status post recent extubation maintained on a few liters of pulmonary forestry conservation worker following closely. Cardiology following as well and adjusted medications recommending continuing with current medication regimen. No change in mentation as patient continues with periods of confusion and restlessness. Medications being adjusted and Ativan as needed has been added. Continue Seroquel. Patient will answer questions appropriately and discuss her health history and can recall her doctors names but will ramble on regarding something irrelevant during conversation. Patient is redirectable. Patient continues with partial cast noted on the lower extremity. Patient continues on IV Lasix and kidney functions are improving nephrology following closely. Plan is for patient to possibly move out of the ICU. Will have PT/OT therapy evaluate the patient and discuss further with consultations along with case management regarding possible ECF versus discharge planning. 09/04/2023 Patient seen in follow-up today and continues to have periods of confusion and restlessness. Patient continues in the ICU with multiple medical consultations following. Hemoglobin was found to be less than 7 today and will transfuse 1 unit of PRBC. Sodium 147 and recommend repeat labs as well. Nephrology is following and patient is continued on IV Lasix. MRI of the brain remains pending and neurology is following. 09/05/2023 Patient is seen and evaluated today continues to be in the ICU needs continuous reinforcement on keeping oxygen on. Patient does have a safety and skill based pay manager at the bedside. Patient is currently resting although remains confused and anxious and agitated at times. Hemoglobin is stable above 7 status post 1 unit of PRBC. Patient continues on IV Lasix daily and nephrology following closely. Patient to continue on IV antibiotics with infectious disease following. 09/06/2023 Patient seen in follow-up today continues to be sleepy at this time although when awake patient is extremely restless and agitated requiring sitter at the bedside. Adjustments to medications being made and Risperdal is being increased and will continue with Seroquel. Ativan as needed. Patient's hemoglobin is stable with no active bleeding noted. Neurology following as patient continues to be unable to obtain an MRI and will have a repeat EEG as well as CT brain per neurology. Patient is afebrile and is continued on antibiotics with infectious disease following. 09/09/2023 Patient seen in follow-up today has been transitioned out of the ICU and curren tly on selective unit and continues with safety and skill based pay manager at the bedside. Patient is keeping her oxygen on currently and is on 4 L. Multiple medical consultations following and per nursing staff patient was able to get up and work with physical therapy today. Plan is for ECF when patient's mentation is improved. Patient continues on IV Lasix twice daily as well with nephrology following. Continue Ativan as needed and patient is also maintained on Risperdal twice daily. Patient is afebrile with no reports of chest pain or shortness of breath. Hemoglobin is stable at 9.8 and white count is normal and kidney functions are improving. Continue monitoring Accu-Cheks before meals and at bedtime and will continue with sliding scale. Neurology following and patient is scheduled to undergo repeat brain CT today. Chest x-ray continues to show pulmonary vascular congestion. 09/10/2023 Patient is seen in follow-up today and mentation is much improved with family sitting at the bedside. Patient is able to have conversation and reports she is going home although patient has significant weakness and will be requiring ECF on discharge. Case management following awaiting for ECF evaluation and will require insurance authorization. Patient is afebrile and has been on IV antibiotics in the form of Zosyn with infectious disease following and white count remains normal and patient will be monitored off antibiotic therapy. Patient also continues on IV Lasix twice daily along with treatments and continued supplemental oxygen. Patient is on 4 L via nasal cannula. 09/11/2023 Patient is seen in follow-up this morning continues to display periods of confusion with increased agitation and restlessness. Per nursing staff patient had reports of hallucinating and seeing things crawling in the room that were not there. Patient is extremely anxious today although continues to be more mikaela ke. Patient reports is eating without much of an appetite. Patient has been compliant with working with physical therapy and will require ECF on discharge. Patient continues with safety and skill based pay manager as patient is impulsive and attempts to get up out of the bed impulsively. Will ask for psychiatry to reevaluate and adjust medications. Will discontinue Dilaudid as the hallucinations appeared shortly after receiving this medication. Patient does elicit pain in the right leg and foot. 09/12/2023 Patient is seen in follow-up today and continues with confusion and requiring a sitter for safety. Patient has been working with physical therapy and reports she is doing well and ready to go home although she will require ECF for continued strength and mobility. Patient is extremely impulsive and restless at times. Asking psychiatry to reevaluate and will adjust medications. Family also working on obtaining guardianship as patient is not making sound decisions for herself medically. Family report they also cannot take her home and take care of her as they are elderly. Patient is afebrile with no reported chest pain or shortness of breath. Patient continues on 4 L and continues to remove her oxygen frequently. Patient is maintained on IV Lasix and being transition to daily. Continue monitoring kidney functions and nephrology is following. Being monitored off antibiotic therapy 09/13/2023 Patient is seen in follow-up this morning continues with a sitter at the bedside. Per nursing staff patient had a large black bowel movement and was incontinent. Occult Was positive and stat repeat hemoglobin was obtained and actually improved from previous at 9.5. Patient is maintained on aspirin, Plavix, and heparin and will hold for now. No GI available and will consult general surgery for evaluation of possible GI bleed. Contents do not appear to be melanotic on exam although dark stools are noted. Multiple other consultations following as well as psychiatry who reevaluated and adjusted medications. Mentation is improved today and less anxious and agitated and per nursing staff more appropriate today. Will continue current regimen and also continue PHARMACEUTICAL SERVICE REPRESENTATIVE and narcotic agents. 09/14/2023 Patient is evaluated in follow-up with sister at the bedside as well as family. General surgery is planning for an upper endoscopy on Saturday with no further reports of any black or bloody stool. Aspirin Plavix and heparin remain on hold. Patient was seen in follow-up by psychiatry for now continues on Prolixin as needed, olanzapine as needed. Patient is maintained on risperidone twice a day scheduled. Patient's mentation she is currently alert x 1-0 she is hallucinating and appears delirious. Continues on IV Lasix 40 mg every 12 hours. Continues on IV daptomycin. Continues in the cast to the right lower extremity. Bun is 32, creatinine is 1.57, magnesium 1.7. White blood cell count 5.1. 09/15/2023 Patient evaluated today with safety and skill based pay manager at the bedside. Patient has no further episodes of bloody stool and is scheduled to undergo an endoscopy on Saturday. Patient is more awake alert today and is more appropriate although she continues to have hallucinations. Patient continues on IV daptomycin with concerns for lower extremity cellulitis. No significant complaints today. 09/16/2023 Patient is seen in follow-up continues with confusion and sitter at the bedside. Patient is n.p.o. currently and scheduled to undergo EGD today with general surgery. Hemoglobin is stable and 9.4 with no active bleeding other than nosebleed. Patient is maintained on Afrin as needed. Patient continues on room air and weaning as tolerated. 91% on room air with pulmonary following. Case management/social work following as well with plans on attempting to have patient go to ECF for significant weakness. Patient continues with sitter at this time making it difficult for placement although patient continues to be somewhat confused and restless and impulsive. Patient is afebrile with no reports of chest pain or shortness of breath. Patient currently n.p.o. and diet will be resumed once cleared by surgery. Kidney functions improving and patient remains on IV Lasix with nephrology following. 09/17/2023 Patient seen and evaluated in follow-up this morning and mood is appropriate, less anxious and restless and responding more appropriately to questions and com mands. Patient does have a sitter for safety at the bedside and if mentation continues to improve need to consider having sitter removed. Patient with significant weakness and prolonged hospitalization will need ECF on discharge. Parents are working on guardianship to help with patient's overall medical care. Patient maintained on IV Lasix showing improvements with nephrology following and will be switching to torsemide. Follow-up on repeat labs and replace electrolytes per protocol. Hemoglobin is stable above 9 with no active bleeding noted. Patient is status post EGD showing antral gastritis. Patient continues to have incontinence with multiple bowel movements although no dark stools or bleeding noted. Cardiology following recommending resuming Plavix when bleeding is stable. Patient continues to have intermittent nosebleeds and has been placed on humidification as patient continues on 4 L via nasal cannula. Patient found multiple times on exam on room air with no oxygen. Recommend to wean FiO2 as tolerated and documented evaluate oxygen saturations while on room air. Recommend PT/OT therapy daily. 09/18/2023 Patient is seen in follow-up today and patient continues to be confused and extremely anxious. As needed medications being used and patient is maintained on risperdol and remains extremely anxious. Patient was noted to have elevated heart rate with some shortness of breath on exam maintained on 4 L via nasal cannula. Will obtain a chest x-ray and also discussed with cardiology. Patient denies any chest pain or shortness of breath although is dyspneic while talking on exam. Patient is afebrile and maintained on daptomycin with infectious disease following awaiting cultures on the catheter site from the previous dialysis port. Kidney functions remained stable with nephrology following and will continue current regimen. Patient has been transition to torsemide daily. Hemoglobin remained stable with no active bleeding noted. Encouraged oral intake and supervision with meals. Encouraged the patient to sit upright along with nursing staff as patient is found to be laying flat on exam each day. Patient is restless and squirms around in the bed all day making it difficult to maintain proper positioning. 09/19/2023 Patient is seen in follow-up today had elevated heart rates into the 150s and cardiology was reconsulted placing the patient on Cardizem drip and patient was brought to 3 S. patient's overall mentation continues to wax and wane with continuous confusion, anxiousness, agitation. Medications being adjusted and patient continues to be extremely weak and also continues to require a sitter at the bedside. Heart rate currently rate controlled and Cardizem on hold. Patient is afebrile with no reported chest pain or worsening shortness of breath. Patient is on 2 L via nasal cannula and needs continuous encouragement on keeping the oxygen on. Patient will continue on daptomycin while inpatient with infectious disease following. 09/21/2023 --the patient seems to be more comfortable compared to yesterday. Mobility is limited because of her ankle fracture. No new complaints otherwise. Remains on oxygen at 3 L with a pulse ox of 97%. Sitter is at bedside. No change in medications. No new labs from today. No other significant events overnight. Remains on broad-spectrum antibiotic coverage. Remains on a combination of risperidone and Requip. Remains on Demadex 20 mg p.o. per day. Renal function has remained stable. Patient is planned to be discharged to [facility] once clinically stable; case management on board and making discharge arrangements --Patient continues to require a sitter at bedside; can be transferred to skilled rehab if stable without sitter for 24 hours 09/22/2023 --the patient is seen and evaluated in room at bedside. She remains on oxygen at 3 L with a pulse ox of 96%. He had a minor fall yesterday as she was trying to get out of bed. Apparently she slept on the floor. No major injuries. No chest pain. No new labs from today. Creatinine from yesterday was at 2.02 with a BUN of 52. Medications are unchanged. Sitter is at the bedside. Chest x-ray from 09/21/2023 showed cardiomegaly. -- Patient remains stable on O2 at 2 L per nasal cannula -- Case management on board for plan for patient to be discharged to skilled rehab; patient continues to require sitter; can be discharged to rehab once sitter is discontinued -- Patient remains on IV daptomycin; ID on board 09/23/2023 Patient is seen in follow-up today currently sitting up in the chair with granddaughter at the bedside and mentation is significantly. Mentation continues to be waxing and waning throughout the day and will have good days and bad days. Patient continues with sitter as patient is impulsive and forgetful. Patient is to continue nonweightbearing of that right lower extremity for now until follow-up with orthopedics. Will have PT/OT therapy evaluate the patient. Plan is for ECF once patient is medically stable. Patient continues on antibiotics with infectious disease following. 09/24/2023 Patient is seen and evaluated today and mentation is improved and continues with a sitter for safety although discussed with nursing staff about removing. Patient's hemoglobin slightly low at 7.8 with no active bleeding noted will add iron studies and give a dose of IV iron. Nephrology following as well and kidney functions mildly elevated at 1.8. Follow-up on repeat labs in AM. Patient is afebrile and continues to request to go home. Recommend reevaluation by PT/OT therapy for updated notes to discuss possible ECF. Patient will require insurance authorization. Review of systems: Constitutional: No reports of fatigue, fever, or chills, reports feeling less anxious Cardiovascular: No reports of chest pain or palpitations Respiratory: No reports of shortness of breath or cough GI: No reports of nausea, vomiting, reports having bowel movements : No reports of dysuria or retention Neurovascular: reports of generalized weakness, patient asks daily when she can go home All medications have been reviewed PHYSICAL EXAMINATION: GENERAL: The patient is on nasal cannula, awake alert and oriented x 2, slightly less anxious today, elderly appearing, unkempt, ill-appearing HEENT: Pupils are round and equally reacting to light. EOMI. CARDIOVASCULAR: S1 and S2 muffled PULMONARY: Decreased breath sounds bilaterally with some scattered rhonchi noted ABDOMEN: Soft, nontender, nondistended, normoactive bowel sounds. No palpable organomegaly. MUSCULOSKELETAL: No joint swelling or deformity. EXTREMITIES: Right lower extremity bandage with partial cast noted NEUROLOGICAL: pupils reactive, more alert and appropriate today SKIN: Patient has right plantar surface ulcer on the posterior foot stage III-IV with areas of necrotic tissue. Casting and Tam wrap noted of the right lower extremity Assessment: Asystole/cardiopulmonary arrest x 2 with CPR/ROSC, unknown etiology Respiratory failure requiring intubation s/p extubation 08/25/2023 Concerns for chest wall cellulitis near the previous dialysis site, continued on daptomycin with ID following Large black stools, concern for GI bleed, ruled out, EGD showed antral gastritis Acute metabolic encephalopathy with concerns of anoxia, status postcardiac arrest Congestive heart failure with systolic dysfunction acute on chronic exacerbation Acute hypoxic respiratory failure secondary to CHF Ischemic cardiomyopathy with improved EF Acute kidney injury secondary to ATN on chronic kidney disease stage III Urinary tract infection with E. coli Subacute fracture of the medial and lateral malleolus, orthopedics following with no plans of immediate surgical intervention at this time Right heel stage III pressure injury continue local wound care with aquacel ID following. Genital lesions, will need cardiac sonographer follow up outpatient for routine screenings Hypertension Hyperlipidemia Type 2 diabetes mellitus uncontrolled hgb a1c 12.1 Severe pulmonary hypertension COPD without any acute exacerbation Peripheral neuropathy GI prophylaxis DVT prophylaxis Full code Plan: Patient being followed by multiple medical consultation as well as safety and skill based pay manager at the bedside. Patient less anxious and more appropriate today, would recommend removing sitter for evaluation. This was discussed with nursing staff. Recommend follow-up PT/OT therapy evaluation for updated notes. Patient has had significant improvement in mentation although continues to be impulsive and extremely weak with prolonged hospitalization. Strongly recommend ECF for continued strength and mobility and more aggressive physical therapy. Continue with weight restrictions per orthopedics on the right lower extremity. Infectious disease following and patient is continued on antibiotics and will discuss further regarding discharge planning Discussed with case management/social work regarding discharge planning. Wean FiO2 as tolerated. Patient currently on 2 L with oxygen saturations above 92%. Follow-up on repeat labs and monitor kidney functions and electrolytes. Hemoglobin 7.8 and will give a dose of IV iron and follow-up with iron studies Encouraged oral intake Continue monitoring Accu-Cheks before meals and at bedtime and will titrate insulins accordingly Due to multiple complex medical issues, overall prognosis is guarded The impression and plan of care has been dictated by Mouna Rowley, Nurse Practitioner as directed. Dr. Wyatt MD I have performed a history and examination and MDM of this patient, discussed the same with the dictator, and agree with the dictator's assessment and plan as written ,documented as a scribe. Based on total visit time, I have performed more than 50% of the visit. Objective - Vital Signs Vital signs: Vital Signs Temp 97.7 F 09/24/23 07:41 Pulse 92 09/24/23 08:00 Resp 18 09/24/23 08:00 BP 166/79 09/24/23 07:41 Pulse Ox 96 09/24/23 07:41 FiO2 3 09/02/23 04:00 Intake & Output 09/23/23 09/24/23 09/24/23 18:59 06:59 18:59 Output Total 800 1050 Balance -800 -1050 Output: Urine 800 1050 Uretheral ([place]) 325 Other: Voiding Method Indwelling Catheter Indwelling Catheter Toilet # Bowel Movements 1 5 ABP, PAP, CO, CI - Last Documented Arterial Blood Pressure 125/73 - Labs CBC & Chem 7: 09/24/23 04:27 09/24/23 04:27 Labs: Abnormal Lab Results - Last 24 Hours (Table) 09/23/23 09/23/23 09/24/23 Range/Units 16:34 21:40 04:27 RBC (4.10-5.20) X 10*6/uL Hgb (12.0-15.0) g/dL Hct (37.2-46.3) % MCHC (32.0-37.0) g/dL RDW (11.5-14.5) % Immature Gran # (0.00-0.04) X 10*3/uL Lymphocytes # (0.90-5.00) X 10*3/uL Eosinophils # (0.04-0.35) X 10*3/uL BUN 55.0 H (9.0-27.0) mg/dL Creatinine 1.8 H (0.6-1.5) mg/dL Est GFR (CKD-EPI) 32 L (>=60) BUN/Creatinine Ratio 30.56 H (12.00-20.00) Ratio Glucose 122 H (70-110) mg/dL POC Glucose (mg/dL) 279 H 286 H (70-110) mg/dL Calcium 8.5 L (8.7-10.3) mg/dL 09/24/23 09/24/23 09/24/23 Range/Units 04:27 06:39 11:41 RBC 2.82 L (4.10-5.20) X 10*6/uL Hgb 7.8 L (12.0-15.0) g/dL Hct 26.8 L (37.2-46.3) % MCHC 29.1 L (32.0-37.0) g/dL RDW 17.2 H (11.5-14.5) % Immature Gran # 0.09 H (0.00-0.04) X 10*3/uL Lymphocytes # 0.84 L (0.90-5.00) X 10*3/uL Eosinophils # 0.41 H (0.04-0.35) X 10*3/uL BUN (9.0-27.0) mg/dL Creatinine (0.6-1.5) mg/dL Est GFR (CKD-EPI) (>=60) BUN/Creatinine Ratio (12.00-20.00) Ratio Glucose (70-110) mg/dL POC Glucose (mg/dL) 167 H 230 H (70-110) mg/dL Calcium (8.7-10.3) mg/dL
[2023-09-24 20:34] LABS: Glucose,Whole Blood 386 mg/dL (70-110)
[2023-09-25 00:19] LABS: % Iron Saturation 11.73 (12.00-45.00)
[2023-09-25 00:54] LABS: Glucose,Whole Blood 151 mg/dL (70-110)
[2023-09-25 06:01] LABS: Glucose,Whole Blood 93 mg/dL (70-110)
[2023-09-25 09:20] LABS: ALT 21 U/L (8-44); AST 21 U/L (13-35); Albumin 3.1 g/dL (3.8-4.9); Albumin/Globulin Ratio 0.82 Ratio (1.60-3.17); Alkaline Phosphatase 193 U/L (41-126); BUN/Creat Ratio 29.89 Ratio (12.00-20.00); Blood Urea Nitrogen 56.8 mg/dL (9.0-27.0); Calcium 8.8 mg/dL (8.7-10.3); Carbon Dioxide 23.8 mmol/L (21.6-31.8); Chloride 104 mmol/L (96-109); Globulin 3.8 g/dL (1.6-3.3); Glucose 77 mg/dL (70-110); Potassium 5.2 mmol/L (3.5-5.5); Sodium 139 mmol/L (135-145); Total Bilirubin 0.4 mg/dL (0.3-1.2); Total Protein 6.9 g/dL (6.2-8.2)
[2023-09-25 09:27] LABS: Basophils # (A) 0.07 X 10*3/uL (0.00-0.10); Basophils % (A) 0.9 %; Eosinophils # (A) 0.35 X 10*3/uL (0.04-0.35); Eosinophils % (A) 4.4 %; HCT 26.1 % (37.2-46.3); HGB 7.7 g/dL (12.0-15.0); Lymphocytes # (A) 0.81 X 10*3/uL (0.90-5.00); Lymphocytes % (A) 10.2 %; MCHC 29.5 g/dL (32.0-37.0); MCV 94.9 FL (80.0-97.0); Mean Platelet Volume 11.2 FL (9.5-12.2); Monocytes # (A) 1.09 X 10*3/uL (0.20-1.00); Monocytes % (A) 13.7 %; NRBC Per 100 WBC 0 X 10*3/uL (0.00-0.01); Neutrophils # (A) 5.58 X 10*3/uL (1.80-7.70); Neutrophils % (A) 69.8 %; Platelet Count 203 X 10*3/uL (140-440); RBC 2.75 X 10*6/uL (4.10-5.20); RDW 17.5 % (11.5-14.5); WBC 7.98 X 10*3/uL (4.50-10.00)
--- NOTE | 2023-09-25 10:16 | P.PN ---
Subjective Progress Note Date: 09/25/23 History of Present Illness: The patient is a 57-year-old female with known history of hypertension, hyper lipidemia, diabetes mellitus as well as a history of coronary disease status post stenting of the RCA and chronic kidney disease who presented with dyspnea and had a cardiopulmonary arrest requiring CPR and mechanical ventilation. She is extubated, complaining of chest wall tenderness post CPR. She continues to be in sinus mechanism and hemodynamically stable. She had some bradycardia earlier and was started on IV dopamine. She is in sinus mechanism with no further bradycardia. Her urinary output has been stable. Her initial echo on presentation showed a preserved systolic function subsequently was found to have cardiomyopathy but that was done shortly after the event. She has a subacute fracture of the medial and lateral malleolus on the right side. August 26: The patient is sedated, she was quite agitated during the night. She had few episodes of sinus bradycardia, brief. She had no evidence of high-grade AV block. Her urinary output is stable. Her blood pressure is under good control without any vasopressors. Her repeat echocardiogram showed a preserved systolic function. She has been evaluated by neurology for possible anoxic encephalopathy. August 1: The patient is awake, confused. In sinus mechanism with no further episodes of high-grade AV block. Her blood pressure is stable. Her urinary output stable. There is no evidence of atrial fibrillation or ventricular ectopic activity. Repeat echocardiogram showed a normal left ventricle systolic function. August 28: The patient is sedated. She was agitated and confused during the night. She had no further episodes of bradycardia arrhythmia. Her blood pressure has been stable. She continues to be intubated. She is undergoing an EEG to evaluate her neurological status. There is no evidence of atrial fibrillation or ventricular tachyarrhythmia. August 29: The patient is more awake continues to have some episodes of confusion. She continues to be in sinus mechanism with no arrhythmia. Her EEG showed some improvement. Her urinary output has been good. Her blood pressure is stable and there is no evidence of significant hypotension. September 14, 2023 Seen and examined at bedside this a.m. Patient is confused and is in delirium state. She is needing a sitter to be present to calm her down. Mild volume overload 09/15 Patient has been transferred out of the intensive care unit. She is scheduled for EGD today due to GI bleed and stool for occult blood. Plavix is currently on hold but she has been continued on aspirin 81 mg daily. Patient remains quite confused with sitter at the bedside. Blood pressure 144/76, heart rate 82, pulse ox 90% on room air. Repeat blood work reveals stable hemoglobin of 9.4, BUN 30 creatinine 1.54. She is s/p transfusion of 2 units of packed RBCs. Patient has been picking at her nose and face and there is dried blood around her nose and mouth and both hands. 09/19 Patient has been on the [facility] floor most of this week and cardiology signed off as of 09/17. We have been reconsulted regarding bradycardia. Patient's heart rate was running in the 30s during the night and also today. Sinus rhythm. Patient received metoprolol tartrate 12.5 mg this morning. Patient is asymptomatic. On 09/15, patient underwent EGD that revealed antral gastritis. Pathology positive for mild chronic gastritis. She has not been resumed on DAPT. 09/20 Patient is seen today in follow-up. We have been reconsulted regarding bradycardia. Lopressor has been discontinued but patient did receive it yesterday morning. Heart rates are running between 43 and 62. Blood pressure 122/65, pulse ox 99% on 3 L nasal cannula. Telemetry sinus rhythm at 78 bpm. EKG sinus at 40 bpm. Patient denies lightheadedness or dizziness. Patient remains confused with environmental health safety manager at the bedside. 09/21 Feeling good today, some confusion. No chest pain or pressure. No lightheadedness or dizziness. Hgb 9.2, creat 2.0. Blood pressure not well controlled. 09/23/2023 She denies any chest pain or pressure. She reports her breathing is better. Right leg swelling is slightly worse today. Blood pressure is not well- controlled. 09/23 Blood pressure 132/85, heart rate in the 90s, pulse ox 98% on 3 L nasal cannula. Repeat blood work reveals hemoglobin 7.8. BUN 55 creatinine 1.8. Potassium 5.4. Updated family member at bedside. Patient continues to have sitter. She continues to have confusion. She denies chest pain. Breathing seems to be stable. 09/24 Patient has been seen in follow-up today. Blood pressure 149/81, heart rate 88, pulse ox 94% on 3 L. Hemoglobin 7.7. BUN 56 creatinine 1.9. Potassium 5.2. Physical Examination: 57-year-old female, awake with some confusion, improved Head: Normocephalic. Eyes: Sclerae nonicteric. Neck: Good carotid upstroke, no bruit, mild elevated jugular venous distention. Lungs: Clear anteriorly Heart: Regular rate and rhythm, S1-S2, no S3, no rub. No murmur. Abdomen: Soft , positive bowel soun Extremities: Mild edema bilateral lower extremity R>L Impression: 1. Status post cardiopulmonary arrest, etiology unclear. No clear evidence of acute ischemic event. 2. Status post stenting of the RCA during prior admission, May 2023 3. Chronic kidney disease 4. Chest wall discomfort, stable 5. History of hyperlipidemia 6. History of hypertension 7. Bradycardia resolved 8. History of diabetes 9. Cardiomyopathy resolved 10. Anoxic encephalopathy, postarrest, improving 11. Delirium 12. Right heel wound 13. Black tarry stools, concern of GI bleeding Plan: Due to rising potassium, Aldactone will be decreased to 12.5 mg daily Discontinue IV Lasix and start patient on Bumex 1 mg daily oral Add Toprol XL 12.5 mg daily Continue aspirin and Plavix, Continue telemetry monitoring Plan for event monitor at the time of discharge Patient is cleared for discharge from cardiology and may follow-up in the office with Dr. Jose in 1 to 2 weeks. Nurse practitioner note has been reviewed, I agree with documented findings and plan of care. Patient was seen and examined. Objective - Vital Signs Vital signs: Vital Signs Temp 97.6 F 09/25/23 08:00 Pulse 88 09/25/23 08:00 Resp 19 09/25/23 08:00 BP 149/81 09/25/23 08:00 Pulse Ox 94 L 09/25/23 08:00 FiO2 3 09/02/23 04:00 Intake & Output 09/24/23 09/25/23 09/25/23 18:59 06:59 18:59 Intake Total 900 Output Total 1 Balance 899 Intake: Intake, IV Titration 150 Amount DAPTOmycin 250 mg In 50 Sodium Chloride 0.9% 50 ml @ 100 mls/hr IVPB Q48H [facility] Rx#:[id number] Sodium Ferric Gluconat- 100 Sucrose 125 mg In Sodium Chloride 0.9% 100 ml @ 100 mls/hr IVPB ONCE ONE Rx#:[id number] Oral 750 Output: Urine/Stool Mix 1 Other: Voiding Method Toilet # Voids 4 # Bowel Movements 3 ABP, PAP, CO, CI - Last Documented Arterial Blood Pressure 125/73 - Labs CBC & Chem 7: 09/25/23 04:17 09/25/23 04:17 Labs: Abnormal Lab Results - Last 24 Hours (Table) 09/24/23 09/24/23 09/24/23 Range/Units 04:27 11:41 17:02 BUN (9.0-27.0) mg/dL Creatinine (0.6-1.5) mg/dL Est GFR (CKD-EPI) (>=60) BUN/Creatinine Ratio (12.00-20.00) Ratio POC Glucose (mg/dL) 230 H 368 H (70-110) mg/dL Iron 23 L (50-170) UG/DL TIBC 196 L (228-460) UG/DL % Saturation 11.73 L (12.00-45.00) Transferrin 140.0 L (204.0-354.0) mg/dL Ferritin 496.0 H (10.0-291.0) ng/mL Alkaline Phosphatase (41-126) U/L Albumin (3.8-4.9) g/dL Globulin (1.6-3.3) g/dL Albumin/Globulin Ratio (1.60-3.17) Ratio 09/24/23 09/25/23 09/25/23 Range/Units 20:31 00:53 04:17 BUN 56.8 H (9.0-27.0) mg/dL Creatinine 1.9 H (0.6-1.5) mg/dL Est GFR (CKD-EPI) 30 L (>=60) BUN/Creatinine Ratio 29.89 H (12.00-20.00) Ratio POC Glucose (mg/dL) 386 H 151 H (70-110) mg/dL Iron (50-170) UG/DL TIBC (228-460) UG/DL % Saturation (12.00-45.00) Transferrin (204.0-354.0) mg/dL Ferritin (10.0-291.0) ng/mL Alkaline Phosphatase 193 H (41-126) U/L Albumin 3.1 L (3.8-4.9) g/dL Globulin 3.8 H (1.6-3.3) g/dL Albumin/Globulin Ratio 0.82 L (1.60-3.17) Ratio
--- NOTE | 2023-09-25 10:51 | P.PN ---
Subjective Progress Note Date: 09/25/23 CHIEF COMPLAINT: GI bleed HISTORY OF PRESENT ILLNESS: Patient is status post EGD revealing antral gastrit is. No further bleeding reported. Patient denies any abdominal pain. She is tolerating diet. hgb 7.7 PHYSICAL EXAM: VITAL SIGNS: Reviewed. GENERAL: Well-developed in no acute distress. ABDOMEN: Soft. Nondistended. Nontender. ASSESSMENT: 1. Acute GI bleed with melanotic stools. Now resolved. Status post EGD revealing antral gastritis PLAN: -Continue PPI -Continue regular diet Physician Arabic Teacher note has been reviewed by physician. Signing provider agrees with the documented findings, assessment, and plan of care. Objective - Vital Signs Vital signs: Vital Signs Temp 97.6 F 09/25/23 08:00 Pulse 88 09/25/23 08:00 Resp 19 09/25/23 08:00 BP 149/81 09/25/23 08:00 Pulse Ox 94 L 09/25/23 08:00 FiO2 3 09/02/23 04:00 Intake & Output 09/24/23 09/25/23 09/25/23 18:59 06:59 18:59 Intake Total 900 Output Total 1 Balance 899 Intake: Intake, IV Titration 150 Amount DAPTOmycin 250 mg In 50 Sodium Chloride 0.9% 50 ml @ 100 mls/hr IVPB Q48H [facility] Rx#:[id number] Sodium Ferric Gluconat- 100 Sucrose 125 mg In Sodium Chloride 0.9% 100 ml @ 100 mls/hr IVPB ONCE ONE Rx#:[id number] Oral 750 Output: Urine/Stool Mix 1 Other: Voiding Method Toilet Toilet # Voids 4 # Bowel Movements 3 ABP, PAP, CO, CI - Last Documented Arterial Blood Pressure 125/73 - Labs CBC & Chem 7: 09/25/23 04:17 09/25/23 04:17 Labs: Abnormal Lab Results - Last 24 Hours (Table) 09/24/23 09/24/23 09/24/23 Range/Units 04:27 11:41 17:02 RBC (4.10-5.20) X 10*6/uL Hgb (12.0-15.0) g/dL Hct (37.2-46.3) % MCHC (32.0-37.0) g/dL RDW (11.5-14.5) % Immature Gran # (0.00-0.04) X 10*3/uL Lymphocytes # (0.90-5.00) X 10*3/uL Monocytes # (0.20-1.00) X 10*3/uL BUN (9.0-27.0) mg/dL Creatinine (0.6-1.5) mg/dL Est GFR (CKD-EPI) (>=60) BUN/Creatinine Ratio (12.00-20.00) Ratio POC Glucose (mg/dL) 230 H 368 H (70-110) mg/dL Iron 23 L (50-170) UG/DL TIBC 196 L (228-460) UG/DL % Saturation 11.73 L (12.00-45.00) Transferrin 140.0 L (204.0-354.0) mg/dL Ferritin 496.0 H (10.0-291.0) ng/mL Alkaline Phosphatase (41-126) U/L Albumin (3.8-4.9) g/dL Globulin (1.6-3.3) g/dL Albumin/Globulin Ratio (1.60-3.17) Ratio 09/24/23 09/25/23 09/25/23 Range/Units 20:31 00:53 04:17 RBC 2.75 L (4.10-5.20) X 10*6/uL Hgb 7.7 L (12.0-15.0) g/dL Hct 26.1 L (37.2-46.3) % MCHC 29.5 L (32.0-37.0) g/dL RDW 17.5 H (11.5-14.5) % Immature Gran # 0.08 H (0.00-0.04) X 10*3/uL Lymphocytes # 0.81 L (0.90-5.00) X 10*3/uL Monocytes # 1.09 H (0.20-1.00) X 10*3/uL BUN (9.0-27.0) mg/dL Creatinine (0.6-1.5) mg/dL Est GFR (CKD-EPI) (>=60) BUN/Creatinine Ratio (12.00-20.00) Ratio POC Glucose (mg/dL) 386 H 151 H (70-110) mg/dL Iron (50-170) UG/DL TIBC (228-460) UG/DL % Saturation (12.00-45.00) Transferrin (204.0-354.0) mg/dL Ferritin (10.0-291.0) ng/mL Alkaline Phosphatase (41-126) U/L Albumin (3.8-4.9) g/dL Globulin (1.6-3.3) g/dL Albumin/Globulin Ratio (1.60-3.17) Ratio // Range/Units 04:17 RBC (4.10-5.20) X 10*6/uL Hgb (12.0-15.0) g/dL Hct (37.2-46.3) % MCHC (32.0-37.0) g/dL RDW (11.5-14.5) % Immature Gran # (0.00-0.04) X 10*3/uL Lymphocytes # (0.90-5.00) X 10*3/uL Monocytes # (0.20-1.00) X 10*3/uL BUN 56.8 H (9.0-27.0) mg/dL Creatinine 1.9 H (0.6-1.5) mg/dL Est GFR (CKD-EPI) 30 L (>=60) BUN/Creatinine Ratio 29.89 H (12.00-20.00) Ratio POC Glucose (mg/dL) (70-110) mg/dL Iron (50-170) UG/DL TIBC (228-460) UG/DL % Saturation (12.00-45.00) Transferrin (204.0-354.0) mg/dL Ferritin (10.0-291.0) ng/mL Alkaline Phosphatase 193 H (41-126) U/L Albumin 3.1 L (3.8-4.9) g/dL Globulin 3.8 H (1.6-3.3) g/dL Albumin/Globulin Ratio 0.82 L (1.60-3.17) Ratio
[2023-09-25 12:31] LABS: Glucose,Whole Blood 262 mg/dL (70-110)
--- NOTE | 2023-09-25 12:46 | P.PN ---
Subjective Progress Note Date: 09/25/23 The patient is seen today September 24, 2023 in follow-up on the regular medical floor. She is currently sitting up in a chair. Awake and alert in no acute distress. She is maintaining O2 saturations in the 90s on 3 L/min per nasal cannula. Afebrile. Hemodynamically stable. 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 She is status post 2 units of packed red blood cells this admission. Current hemoglobin 7.8. White count 8.9. Platelets 217. Sodium 138. Potassium 5.4. Bicarb 24. BUN 55. Creatinine 1.8. Glucose 122. She remains on daptomycin per ID services. Continued on bronchodilators. Remains on IV diuretics. Currently in a -1.8 L balance. The patient is seen today September 25, 2023 in follow-up on the regular medical floor. She is currently resting comfortably in bed. Awake and alert in no acute distress. She is maintaining good O2 saturations in the 90s on 3 L/min per nasal cannula. White count 7.9. Stool 3. Sodium 139. Potassium 5.2. Bicarb 24. BUN 57. Creatinine 1.9. Glucose 77. She remains on daptomycin. Continued on bronchodilators. Remains on diuretics. Her [place] catheter has been removed. No accurate I & O. Objective - Vital Signs Vital signs: Vital Signs Temp 97.6 F 09/25/23 08:00 Pulse 88 09/25/23 08:00 Resp 19 09/25/23 08:00 BP 149/81 09/25/23 08:00 Pulse Ox 94 L 09/25/23 08:00 FiO2 3 09/02/23 04:00 Intake & Output 09/24/23 09/25/23 09/25/23 18:59 06:59 18:59 Intake Total 900 Output Total 1 Balance 899 Intake: Intake, IV Titration 150 Amount DAPTOmycin 250 mg In 50 Sodium Chloride 0.9% 50 ml @ 100 mls/hr IVPB Q48H [facility] Rx#:[id number] Sodium Ferric Gluconat- 100 Sucrose 125 mg In Sodium Chloride 0.9% 100 ml @ 100 mls/hr IVPB ONCE ONE Rx#:[id number] Oral 750 Output: Urine/Stool Mix 1 Other: Voiding Method Toilet Toilet # Voids 4 # Bowel Movements 3 ABP, PAP, CO, CI - Last Documented Arterial Blood Pressure 125/73 - Exam GENERAL EXAM: Alert, confused at times, 58-year-old female, on 3 L nasal cannula, resting in bed, in no apparent distress. HEAD: Normocephalic. EYES: Normal reaction of pupils, equal size. NOSE: Clear with pink turbinates. THROAT: No erythema or exudates. NECK: No masses, no JVD. CHEST: No chest wall deformity. LUNGS: Equal air entry with no crackles, wheeze, rhonchi or dullness. CVS: S1 and S2 normal with no audible murmur, regular rhythm. ABDOMEN: No hepatosplenomegaly, normal bowel sounds, no guarding or rigidity. SPINE: No scoliosis or deformity SKIN: No rashes CENTRAL NERVOUS SYSTEM: No focal deficits, tone is normal in all 4 extremities. EXTREMITIES: There is no peripheral edema. No clubbing, no cyanosis. Peripheral pulses are intact. - Labs CBC & Chem 7: 09/25/23 04:17 09/25/23 04:17 Labs: Abnormal Lab Results - Last 24 Hours (Table) 09/24/23 09/24/23 09/24/23 Range/Units 04:27 17:02 20:31 RBC (4.10-5.20) X 10*6/uL Hgb (12.0-15.0) g/dL Hct (37.2-46.3) % MCHC (32.0-37.0) g/dL RDW (11.5-14.5) % Immature Gran # (0.00-0.04) X 10*3/uL Lymphocytes # (0.90-5.00) X 10*3/uL Monocytes # (0.20-1.00) X 10*3/uL BUN (9.0-27.0) mg/dL Creatinine (0.6-1.5) mg/dL Est GFR (CKD-EPI) (>=60) BUN/Creatinine Ratio (12.00-20.00) Ratio POC Glucose (mg/dL) 368 H 386 H (70-110) mg/dL Iron 23 L (50-170) UG/DL TIBC 196 L (228-460) UG/DL % Saturation 11.73 L (12.00-45.00) Transferrin 140.0 L (204.0-354.0) mg/dL Ferritin 496.0 H (10.0-291.0) ng/mL Alkaline Phosphatase (41-126) U/L Albumin (3.8-4.9) g/dL Globulin (1.6-3.3) g/dL Albumin/Globulin Ratio (1.60-3.17) Ratio 09/25/23 09/25/23 09/25/23 Range/Units 00:53 04:17 04:17 RBC 2.75 L (4.10-5.20) X 10*6/uL Hgb 7.7 L (12.0-15.0) g/dL Hct 26.1 L (37.2-46.3) % MCHC 29.5 L (32.0-37.0) g/dL RDW 17.5 H (11.5-14.5) % Immature Gran # 0.08 H (0.00-0.04) X 10*3/uL Lymphocytes # 0.81 L (0.90-5.00) X 10*3/uL Monocytes # 1.09 H (0.20-1.00) X 10*3/uL BUN 56.8 H (9.0-27.0) mg/dL Creatinine 1.9 H (0.6-1.5) mg/dL Est GFR (CKD-EPI) 30 L (>=60) BUN/Creatinine Ratio 29.89 H (12.00-20.00) Ratio POC Glucose (mg/dL) 151 H (70-110) mg/dL Iron (50-170) UG/DL TIBC (228-460) UG/DL % Saturation (12.00-45.00) Transferrin (204.0-354.0) mg/dL Ferritin (10.0-291.0) ng/mL Alkaline Phosphatase 193 H (41-126) U/L Albumin 3.1 L (3.8-4.9) g/dL Globulin 3.8 H (1.6-3.3) g/dL Albumin/Globulin Ratio 0.82 L (1.60-3.17) Ratio 09/25/23 Range/Units 12:29 RBC (4.10-5.20) X 10*6/uL Hgb (12.0-15.0) g/dL Hct (37.2-46.3) % MCHC (32.0-37.0) g/dL RDW (11.5-14.5) % Immature Gran # (0.00-0.04) X 10*3/uL Lymphocytes # (0.90-5.00) X 10*3/uL Monocytes # (0.20-1.00) X 10*3/uL BUN (9.0-27.0) mg/dL Creatinine (0.6-1.5) mg/dL Est GFR (CKD-EPI) (>=60) BUN/Creatinine Ratio (12.00-20.00) Ratio POC Glucose (mg/dL) 262 H (70-110) mg/dL Iron (50-170) UG/DL TIBC (228-460) UG/DL % Saturation (12.00-45.00) Transferrin (204.0-354.0) mg/dL Ferritin (10.0-291.0) ng/mL Alkaline Phosphatase (41-126) U/L Albumin (3.8-4.9) g/dL Globulin (1.6-3.3) g/dL Albumin/Globulin Ratio (1.60-3.17) Ratio Assessment and Plan Assessment: Cardiopulmonary arrest, x 2, with cardiopulmonary resuscitation, and return of spontaneous circulation on 08/23/23 Acute hypoxic respiratory failure, post cardiac arrest. S/P intubation, and mechanical ventilation, secondary to cardiopulmonary arrest, August 23, 2023. She was extubated on 08/25/23. Currently on 3 L/min per nasal cannula Encephalopathy, multifactorial, suspect post anoxic encephalopathy and cardiac arrest. Currently on risperidone and Requip for ongoing restlessness and encephalopathy Anemia status post EGD on September 16, 2019 with mild gastritis. No active bleeding. Current hemoglobin 7.7. History of congestive heart failure (HFPEF) Coronary artery disease/cardiomyopathy and the patient is post non-ST segment elevation myocardial infarction Stage III chronic kidney disease Right heel pressure ulcer, stage III Subacute fracture of the medial and lateral malleolus History of hypertension History of hyperlipidemia History of type 2 diabetes mellitus History of severe pulmonary hypertension History of COPD History of peripheral neuropathy Chest wall pain related to CPR Plan: The patient was seen and evaluated Labs and medications reviewed Denies any pulmonary issues Titrate down the FiO2 as tolerated Social work working on placement This patient was seen independently by the pulmonary nurse practitioner addressing pulmonary issues I have personally seen and examined the patient, performed the documentation and the assessment and plan as written. Number of minutes spent on the visit: 23.
[2023-09-25] MEDS: METOPROLOL SUCCINATE (ER) 25 MG TAB.ER.24H PO SCH (13:23)
[2023-09-25 17:05] LABS: Glucose,Whole Blood 316 mg/dL (70-110)
[2023-09-25 20:41] LABS: Glucose,Whole Blood 342 mg/dL (70-110)
--- NOTE | 2023-09-25 22:34 | P.PN ---
Subjective Patient is seen for follow-up for acute kidney injury. patient remains confused, although mentation is somewhat improved. serum creatinine at 1.9 mg/dL. Patient is currently being diuresed. Urine output not accurately charted. Objective - Vital Signs Vital signs: Vital Signs Temp 97.6 F 09/25/23 20:00 Pulse 80 09/25/23 20:00 Resp 16 09/25/23 20:00 BP 127/66 09/25/23 20:00 Pulse Ox 95 09/25/23 20:00 FiO2 3 09/02/23 04:00 Intake & Output 09/25/23 09/25/23 09/26/23 06:59 18:59 06:59 Output Total 400 Balance -400 Output: Urine 400 Other: Voiding Method Toilet # Voids 4 # Bowel Movements 3 ABP, PAP, CO, CI - Last Documented Arterial Blood Pressure 125/73 - Exam Patient is awake. She is comfortable. Confused Examination of the heart S1 and S2 Examination of the lungs bilateral breath sounds are heard Abdomen is soft nontender Examination of lower extremities shows 1+ edema. Right leg is in cast - Labs CBC & Chem 7: 09/25/23 04:17 09/25/23 04:17 Labs: Abnormal Lab Results - Last 24 Hours (Table) 09/24/23 09/25/23 09/25/23 Range/Units 04:27 00:53 04:17 RBC 2.75 L (4.10-5.20) X 10*6/uL Hgb 7.7 L (12.0-15.0) g/dL Hct 26.1 L (37.2-46.3) % MCHC 29.5 L (32.0-37.0) g/dL RDW 17.5 H (11.5-14.5) % Immature Gran # 0.08 H (0.00-0.04) X 10*3/uL Lymphocytes # 0.81 L (0.90-5.00) X 10*3/uL Monocytes # 1.09 H (0.20-1.00) X 10*3/uL BUN (9.0-27.0) mg/dL Creatinine (0.6-1.5) mg/dL Est GFR (CKD-EPI) (>=60) BUN/Creatinine Ratio (12.00-20.00) Ratio POC Glucose (mg/dL) 151 H (70-110) mg/dL Iron 23 L (50-170) UG/DL TIBC 196 L (228-460) UG/DL % Saturation 11.73 L (12.00-45.00) Transferrin 140.0 L (204.0-354.0) mg/dL Ferritin 496.0 H (10.0-291.0) ng/mL Alkaline Phosphatase (41-126) U/L Albumin (3.8-4.9) g/dL Globulin (1.6-3.3) g/dL Albumin/Globulin Ratio (1.60-3.17) Ratio 09/25/23 09/25/23 09/25/23 Range/Units 04:17 12:29 17:04 RBC (4.10-5.20) X 10*6/uL Hgb (12.0-15.0) g/dL Hct (37.2-46.3) % MCHC (32.0-37.0) g/dL RDW (11.5-14.5) % Immature Gran # (0.00-0.04) X 10*3/uL Lymphocytes # (0.90-5.00) X 10*3/uL Monocytes # (0.20-1.00) X 10*3/uL BUN 56.8 H (9.0-27.0) mg/dL Creatinine 1.9 H (0.6-1.5) mg/dL Est GFR (CKD-EPI) 30 L (>=60) BUN/Creatinine Ratio 29.89 H (12.00-20.00) Ratio POC Glucose (mg/dL) 262 H 316 H (70-110) mg/dL Iron (50-170) UG/DL TIBC (228-460) UG/DL % Saturation (12.00-45.00) Transferrin (204.0-354.0) mg/dL Ferritin (10.0-291.0) ng/mL Alkaline Phosphatase 193 H (41-126) U/L Albumin 3.1 L (3.8-4.9) g/dL Globulin 3.8 H (1.6-3.3) g/dL Albumin/Globulin Ratio 0.82 L (1.60-3.17) Ratio 09/25/23 Range/Units 20:39 RBC (4.10-5.20) X 10*6/uL Hgb (12.0-15.0) g/dL Hct (37.2-46.3) % MCHC (32.0-37.0) g/dL RDW (11.5-14.5) % Immature Gran # (0.00-0.04) X 10*3/uL Lymphocytes # (0.90-5.00) X 10*3/uL Monocytes # (0.20-1.00) X 10*3/uL BUN (9.0-27.0) mg/dL Creatinine (0.6-1.5) mg/dL Est GFR (CKD-EPI) (>=60) BUN/Creatinine Ratio (12.00-20.00) Ratio POC Glucose (mg/dL) 342 H (70-110) mg/dL Iron (50-170) UG/DL TIBC (228-460) UG/DL % Saturation (12.00-45.00) Transferrin (204.0-354.0) mg/dL Ferritin (10.0-291.0) ng/mL Alkaline Phosphatase (41-126) U/L Albumin (3.8-4.9) g/dL Globulin (1.6-3.3) g/dL Albumin/Globulin Ratio (1.60-3.17) Ratio Assessment and Plan Assessment: 1. Acute kidney injury secondary to ATN secondary to cardiorenal syndrome and cardiac arrest. Creatinine at 1.9 today.. Patient was on hemodialysis in the past with last treatment being July 02, 2023. Dialysis catheter it is now removed. Renal US no hydronephrosis. 2. Volume overload. 3. Acute on chronic diastolic CHF. 4. Diabetes mellitus. 5. Right foot wound. 6. Coronary disease with cardiac stenting. 7. Status post PEA arrest with concern for anoxic encephalopathy. 8. Septic Shock-urine culture is growing E. coli. Catheter tip culture is growing corynebacterium, blood culture negative so far. 9. Metabolic acidosis, nongap, improved 10. Hypernatremia, status post D5W, improved Plan: continue with current diuretics. Repeat labs in a.m.
[2023-09-26 06:06] LABS: Glucose,Whole Blood 265 mg/dL (70-110)
--- NOTE | 2023-09-26 06:06 | P.PN ---
Subjective Progress Note Date: 09/25/23 57-year-old female came in with complaints of shortness of breath and orthopnea found to be in congestive heart failure exacerbation patient has congestive heart failure with reduced ejection fraction in the past patient has increasing pedal edema. Patient also has an ulcer in the right foot stage III-IV which appeared to be infected we will consult wound care and infectious disease. Patient was on hemodialysis during last hospitalization her creatinine presently is 1.5 which is significantly improved patient potassium is 5.5, patient is on Entresto and Aldactone Aldactone will be held Entresto will be continued since she is receiving IV Lasix and expecting her potassium to improve if it does not improve or get worse then Entresto need to be discontinued as well. Patient has hypervolemic hyponatremia and hyperglycemia. 08/21/2023 Was evaluated today on the medical floor. Patient was continued on IV Lasix overnight however she was no longer reporting any shortness of breath and her lower extremity edema has improved. She was taken off of the Lasix at this time due to increased creatinine up to 2.31 additionally potassium remains elevated at 5.7. Echocardiogram comes back showing an improved ejection fraction of 60 to 65% because of this and also the hyperkalemia patient will not be continued on entresto. Patient was evaluated by infectious disease who felt like that heel ulcer on the right side was more likely a pressure injury stage III and is recommending local wound care to continue with Aquacel. Patient is reporting significant pain to the right foot and feels like it is fractured. Upon review of the patient's chart she did have a x-ray completed of this 12 days ago ordered by her sleeve setter safety stitch Dr. Mayen. Ankle x-ray did review a mildly displaced acute distal fibular fracture. Repeat x-ray of the foot and ankle completed today does reveal a subacute fractures of the medial and lateral malleolus. The lateral malleolus fracture was seen on the patient's prior exam the medial malleolus fracture may be new in the interval and this would be considered an unstable ankle fracture. There is interval 6 mm displacement of the lateral malleolus. There is a deep soft tissue ulcer at the plantar heel with no clear radiographic findings of a contagious osteomyelitis at this time. Orthooedics was consulted for this. 08/22/2023 Patient evaluated in follow-up today resting in bed. She was taken off of the Lasix remains off at this time. Bladder scan was requested and not done yesterday to rule out urinary retention, creatinine today is increased up to 2.56. Bladder scan was done require urinary straight catheterization of 550 mL taken out. Urinalysis was sent which is significantly abnormal. Patient is also noted to have multiple genital lesions which appear wartlike she admits to not having any routine gynecological screenings for many years. She is not having any vaginal bleeding or discharge. Renal ultrasound has been ordered to rule out any obstructive uropathy. 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 Patient upon arrival to the intensive care unit had another episode of cardiac arrest patient had bradycardia while on pressors in the ICU patient was intubated following the first cardiac arrest and is currently on the mechanical ventilator 50% FiO2. Chest x-ray showing similar interstitial and patchy component airspace disease right greater than left. There is a possible trace left pleural effusion. A brain CT which shows no acute intracranial process. Blood work today shows a white blood cell count of 13.8, hemoglobin 9.5, sodium level of 135, BUN of 62, creatinine of 2.76. AST ALT and alk phosphatase are significantly elevated consistent with a shock liver. TSH 3.310. Urinalysis is abnormal. Her urine culture is showing gram-negative bacilli patient is covered for the urinary tract infection as well as aspiration with IV Zosyn being managed by infectious disease. Patient is currently sedated with propofol and did require vasopressor support with Levophed which has been weaned at this time. Will discontinue the gabapentin patient is continued on aspirin Plavix and statin has been placed on hold. There is concern for possible arrhythmia precipitating the asystole additionally we need to rule out embolism and a D-dimer has been ordered. 08/24/2023 Patient is seen in follow-up today continues in the ICU on mechanical ventilation. FiO2 is 50% although titrating and was just placed at 40% with a PEEP of 5. Chest x-ray today shows that the ET tube is 7 mm from the sonam suggesting a pulled back 2 cm and reassess and also suspected underlying vascular congestion. Neuro is following and per nursing staff patient is following some simple commands and undergoing sedation holidays. Patient noted to have reduced EF of 30 to 35% and cardiology had been following. Will reconsult and appreciate input and recommendations. patient did have dialysis catheter removed and sent for cultures which are pending. Infectious disease following and patient is maintained on antibiotic. D-dimer is elevated above 16 and will attempt to obtain a VQ scan.57-year-old female came in with complaints of shortness of breath and orthopnea found to be in congestive heart failure exacerbation patient has congestive heart failure with reduced ejection fraction in the past patient has increasing pedal edema. Patient also has an ulcer in the right foot stage III-IV which appeared to be infected we will consult wound care and infectious disease. Patient was on hemodialysis during last hospitalization her creatinine presently is 1.5 which is significantly improved patient potassium is 5.5, patient is on Entresto and Aldactone Aldactone will be held Entresto will be continued since she is receiving IV Lasix and expecting her potassium to improve if it does not improve or get worse then Entresto need to be discontinued as well. Patient has hypervolemic hyponatremia and hyperglycemia. 08/21/2023 Was evaluated today on the medical floor. Patient was continued on IV Lasix overnight however she was no longer reporting any shortness of breath and her lower extremity edema has improved. She was taken off of the Lasix at this time due to increased creatinine up to 2.31 additionally potassium remains elevated at 5.7. Echocardiogram comes back showing an improved ejection fraction of 60 to 65% because of this and also the hyperkalemia patient will not be continued on entresto. Patient was evaluated by infectious disease who felt like that heel ulcer on the right side was more likely a pressure injury stage III and is recommending local wound care to continue with Aquacel. Patient is reporting significant pain to the right foot and feels like it is fractured. Upon review of the patient's chart she did have a x-ray completed of this 12 days ago ordered by her sleeve setter safety stitch Dr. Mayen. Ankle x-ray did review a mildly displaced acute distal fibular fracture. Repeat x-ray of the foot and ankle completed today does reveal a subacute fractures of the medial and lateral malleolus. The lateral malleolus fracture was seen on the patient's prior exam the medial malleolus fracture may be new in the interval and this would be considered an unstable ankle fracture. There is interval 6 mm displacement of the lateral malleolus. There is a deep soft tissue ulcer at the plantar heel with no clear radiographic findings of a contagious osteomyelitis at this time. Orthooedics was consulted for this. 08/22/2023 Patient evaluated in follow-up today resting in bed. She was taken off of the Lasix remains off at this time. Bladder scan was requested and not done yesterday to rule out urinary retention, creatinine today is increased up to 2.56. Bladder scan was done require urinary straight catheterization of 550 mL taken out. Urinalysis was sent which is significantly abnormal. Patient is also noted to have multiple genital lesions which appear wartlike she admits to not having any routine gynecological screenings for many years. She is not having any vaginal bleeding or discharge. Renal ultrasound has been ordered to rule out any obstructive uropathy. 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 Patient upon arrival to the intensive care unit had another episode of cardiac arrest patient had bradycardia while on pressors in the ICU patient was intubated following the first cardiac arrest and is currently on the mechanical ventilator 50% FiO2. Chest x-ray showing similar interstitial and patchy component airspace disease right greater than left. There is a possible trace left pleural effusion. A brain CT which shows no acute intracranial process. Blood work today shows a white blood cell count of 13.8, hemoglobin 9.5, sodium level of 135, BUN of 62, creatinine of 2.76. AST ALT and alk phosphatase are significantly elevated consistent with a shock liver. TSH 3.310. Urinalysis is abnormal. Her urine culture is showing gram-negative bacilli patient is covered for the urinary tract infection as well as aspiration with IV Zosyn being managed by infectious disease. Patient is currently sedated with propofol and did require vasopressor support with Levophed which has been weaned at this time. Will discontinue the gabapentin patient is continued on aspirin Plavix and statin has been placed on hold. There is concern for possible arrhythmia precipitating the asystole additionally we need to rule out embolism and a D-dimer has been ordered. 08/24/2023 Patient is seen in follow-up today continues in the ICU on mechanical ventil ation. FiO2 is 50% although titrating and was just placed at 40% with a PEEP of 5. Chest x-ray today shows that the ET tube is 7 mm from the sonam suggesting a pulled back 2 cm and reassess and also suspected underlying vascular congestion. Neuro is following and per nursing staff patient is following some simple commands and undergoing sedation holidays. Patient noted to have reduced EF of 30 to 35% and cardiology had been following. Will reconsult and appreciate input and recommendations. patient did have dialysis catheter removed and sent for cultures which are pending. Infectious disease following and patient is maintained on antibiotic. D-dimer is elevated above 16 and will atte mpt to obtain a VQ scan. 08/25/23 : Patient seen and evaluated at bedside, patient extubated around noon, transition to 5 L of oxygen to nasal cannula. Family at bedside, blood work reviewed hemoglobin 10.3, serum chemistry reviewed sodium 140 potassium 4.8 BUN 57 creatinine 2.49 calcium of 7. 08/26/23 : Patient seen and evaluated at bedside, patient remains in medical ICU, does complain of chest pain from CPR. Patient has been weaned off dopamine, cardiology following, blood work reviewed, hemoglobin 8.5 platelet count of 217, serum chemistry shows sodium 141 BUN 51 creatinine 2.28. Followed up by nephrology as well MARYLOU secondary to ATN continue to monitor intake and output 08/27/23: Patient seen and evaluated bedside, on evaluation patient is disoriented, patient is drowsy however likely having acute delirium. Seen by cardiology echocardiogram shows preserved ejection fraction continue with current medical management, patient on Precedex for acute delirium, continue to remain on oxygen supplementation with nasal cannula blood work reviewed CBC showed WBC 8.2 hemoglobin 8.6 serum chemistry showed creatinine of 2.22. Patient remains delirious, daughter at bedside all questions answered 08/28/2023 Patient was agitated earlier requiring Seroquel and Placed on Precedex because she was has risk to self and others Currently when I saw the patient she was sleepy However she is not tachypneic show does not look in pain. Vitals are stable She is saturating 91% on 2 L oxygen via nasal cannula She remains on Zosyn for pneumonia and UTI She is on normal saline at 50 mL/h 08/29/2023 Patient remains sleepy, she still has some encephalopathy But she is on Precedex which will be tapered off by pulmonary team today to assess her mentation as well. Patient has been followed by neurology for suspected anoxic brain injury after her cardiac arrest and return of circulation on 08/22. There is no evidence of seizure-like activity She has catheter tip infection with culture growing Corynebacterium species and she is currently covered with Zosyn which also help for her right heel pressure ulcer and aspiration pneumonia and UTI. Cardiology evaluated the patient and there is no clear evidence for her cardiac arrest although she has history of coronary artery disease and previous stents. Currently with no chest pain. She remains on aspirin and Plavix, gentle hydration, IV steroids 08/30/2023 Today her sedation remains off however patient mentation not completely resolved, it is somewhat better as she was more sleepy yesterday She is eating okay, swallowing is fine She was started on IV Lasix twice daily per boatbuilder supervisor. She has good urine output and normal send discontinued She is hemodynamically stable and oxygenation is acceptable Remains on aspirin and Plavix and Seroquel 08/31/23: Seen and evaluated at bedside, patient remains on 4 L of oxygen, blood work reviewed, WBC 7.3 hemoglobin 9.1 platelet count of 203 glucose 119. CBC reviewed showed WBC 7.3 hemoglobin 9.1 platelet count of 203.. Neurology consulted and following. Patient is awake and alert able to answer questions and follow commands sister at bedside all questions answered 09/01/23: Seen and evaluated at bedside, patient vitals reviewed, serum chemistry reviewed sodium 145 potassium 4.6 creatinine 2.71, CBC reviewed patient remains on IV Zosyn , appreciate input from nephrology continue patient on IV Lasix, delirium persist 09/02/23: Patient seen and evaluated bedside, patient been admitted for cardiopulmonary arrest, respiratory failure s/p extubation on nasal cannula however continues to remain delirious. Blood work reviewed hemoglobin 8.8, platelet count 226, serum chemistry reviewed creatinine 2.55 potassium 4.5. MRI brain has been ordered which is pending, patient remains disoriented 09/03/2023 Patient is seen in follow-up status post recent extubation maintained on a few liters of pulmonary change release manager following closely. Cardiology following as well and adjusted medications recommending continuing with current medication regimen. No change in mentation as patient continues with periods of confusion and restlessness. Medications being adjusted and Ativan as needed has been added. Continue Seroquel. Patient will answer questions appropriately and discuss her health history and can recall her doctors names but will ramble on regarding something irrelevant during conversation. Patient is redirectable. Patient continues with partial cast noted on the lower extremity. Patient continues on IV Lasix and kidney functions are improving nephrology following closely. Plan is for patient to possibly move out of the ICU. Will have PT/OT therapy evaluate the patient and discuss further with consultations along with case management regarding possible ECF versus discharge planning. 09/04/2023 Patient seen in follow-up today and continues to have periods of confusion and restlessness. Patient continues in the ICU with multiple medical consultations following. Hemoglobin was found to be less than 7 today and will transfuse 1 unit of PRBC. Sodium 147 and recommend repeat labs as well. Nephrology is following and patient is continued on IV Lasix. MRI of the brain remains pending and neurology is following. 09/05/2023 Patient is seen and evaluated today continues to be in the ICU needs continuous reinforcement on keeping oxygen on. Patient does have a health and safety manager at the bedside. Patient is currently resting although remains confused and anxious and agitated at times. Hemoglobin is stable above 7 status post 1 unit of PRBC. Patient continues on IV Lasix daily and nephrology following closely. Patient to continue on IV antibiotics with infectious disease following. 09/06/2023 Patient seen in follow-up today continues to be sleepy at this time although when awake patient is extremely restless and agitated requiring sitter at the bedside. Adjustments to medications being made and Risperdal is being increased and will continue with Seroquel. Ativan as needed. Patient's hemoglobin is stable with no active bleeding noted. Neurology following as patient continues to be unable to obtain an MRI and will have a repeat EEG as well as CT brain per neurology. Patient is afebrile and is continued on antibiotics with infectious disease following. 09/09/2023 Patient seen in follow-up today has been transitioned out of the ICU and curren tly on selective unit and continues with health and safety manager at the bedside. Patient is keeping her oxygen on currently and is on 4 L. Multiple medical consultations following and per nursing staff patient was able to get up and work with physical therapy today. Plan is for ECF when patient's mentation is improved. Patient continues on IV Lasix twice daily as well with nephrology following. Continue Ativan as needed and patient is also maintained on Risperdal twice daily. Patient is afebrile with no reports of chest pain or shortness of breath. Hemoglobin is stable at 9.8 and white count is normal and kidney functions are improving. Continue monitoring Accu-Cheks before meals and at bedtime and will continue with sliding scale. Neurology following and patient is scheduled to undergo repeat brain CT today. Chest x-ray continues to show pulmonary vascular congestion. 09/10/2023 Patient is seen in follow-up today and mentation is much improved with family sitting at the bedside. Patient is able to have conversation and reports she is going home although patient has significant weakness and will be requiring ECF on discharge. Case management following awaiting for ECF evaluation and will require insurance authorization. Patient is afebrile and has been on IV antibiotics in the form of Zosyn with infectious disease following and white count remains normal and patient will be monitored off antibiotic therapy. Patient also continues on IV Lasix twice daily along with treatments and continued supplemental oxygen. Patient is on 4 L via nasal cannula. 09/11/2023 Patient is seen in follow-up this morning continues to display periods of confusion with increased agitation and restlessness. Per nursing staff patient had reports of hallucinating and seeing things crawling in the room that were not there. Patient is extremely anxious today although continues to be more mikaela ke. Patient reports is eating without much of an appetite. Patient has been compliant with working with physical therapy and will require ECF on discharge. Patient continues with health and safety manager as patient is impulsive and attempts to get up out of the bed impulsively. Will ask for psychiatry to reevaluate and adjust medications. Will discontinue Dilaudid as the hallucinations appeared shortly after receiving this medication. Patient does elicit pain in the right leg and foot. 09/12/2023 Patient is seen in follow-up today and continues with confusion and requiring a sitter for safety. Patient has been working with physical therapy and reports she is doing well and ready to go home although she will require ECF for continued strength and mobility. Patient is extremely impulsive and restless at times. Asking psychiatry to reevaluate and will adjust medications. Family also working on obtaining guardianship as patient is not making sound decisions for herself medically. Family report they also cannot take her home and take care of her as they are elderly. Patient is afebrile with no reported chest pain or shortness of breath. Patient continues on 4 L and continues to remove her oxygen frequently. Patient is maintained on IV Lasix and being transition to daily. Continue monitoring kidney functions and nephrology is following. Being monitored off antibiotic therapy 09/13/2023 Patient is seen in follow-up this morning continues with a sitter at the bedside. Per nursing staff patient had a large black bowel movement and was incontinent. Occult Was positive and stat repeat hemoglobin was obtained and actually improved from previous at 9.5. Patient is maintained on aspirin, Plavix, and heparin and will hold for now. No GI available and will consult general surgery for evaluation of possible GI bleed. Contents do not appear to be melanotic on exam although dark stools are noted. Multiple other consultations following as well as psychiatry who reevaluated and adjusted medications. Mentation is improved today and less anxious and agitated and per nursing staff more appropriate today. Will continue current regimen and also continue STERILIZATION TECH and narcotic agents. 09/14/2023 Patient is evaluated in follow-up with sister at the bedside as well as family. General surgery is planning for an upper endoscopy on Saturday with no further reports of any black or bloody stool. Aspirin Plavix and heparin remain on hold. Patient was seen in follow-up by psychiatry for now continues on Prolixin as needed, olanzapine as needed. Patient is maintained on risperidone twice a day scheduled. Patient's mentation she is currently alert x 1-0 she is hallucinating and appears delirious. Continues on IV Lasix 40 mg every 12 hours. Continues on IV daptomycin. Continues in the cast to the right lower extremity. Bun is 32, creatinine is 1.57, magnesium 1.7. White blood cell count 5.1. 09/15/2023 Patient evaluated today with health and safety manager at the bedside. Patient has no further episodes of bloody stool and is scheduled to undergo an endoscopy on Saturday. Patient is more awake alert today and is more appropriate although she continues to have hallucinations. Patient continues on IV daptomycin with concerns for lower extremity cellulitis. No significant complaints today. 09/16/2023 Patient is seen in follow-up continues with confusion and sitter at the bedside. Patient is n.p.o. currently and scheduled to undergo EGD today with general surgery. Hemoglobin is stable and 9.4 with no active bleeding other than nosebleed. Patient is maintained on Afrin as needed. Patient continues on room air and weaning as tolerated. 91% on room air with pulmonary following. Case management/social work following as well with plans on attempting to have patient go to ECF for significant weakness. Patient continues with sitter at this time making it difficult for placement although patient continues to be somewhat confused and restless and impulsive. Patient is afebrile with no reports of chest pain or shortness of breath. Patient currently n.p.o. and diet will be resumed once cleared by surgery. Kidney functions improving and patient remains on IV Lasix with nephrology following. 09/17/2023 Patient seen and evaluated in follow-up this morning and mood is appropriate, less anxious and restless and responding more appropriately to questions and com mands. Patient does have a sitter for safety at the bedside and if mentation continues to improve need to consider having sitter removed. Patient with significant weakness and prolonged hospitalization will need ECF on discharge. Parents are working on guardianship to help with patient's overall medical care. Patient maintained on IV Lasix showing improvements with nephrology following and will be switching to torsemide. Follow-up on repeat labs and replace electrolytes per protocol. Hemoglobin is stable above 9 with no active bleeding noted. Patient is status post EGD showing antral gastritis. Patient continues to have incontinence with multiple bowel movements although no dark stools or bleeding noted. Cardiology following recommending resuming Plavix when bleeding is stable. Patient continues to have intermittent nosebleeds and has been placed on humidification as patient continues on 4 L via nasal cannula. Patient found multiple times on exam on room air with no oxygen. Recommend to wean FiO2 as tolerated and documented evaluate oxygen saturations while on room air. Recommend PT/OT therapy daily. 09/18/2023 Patient is seen in follow-up today and patient continues to be confused and extremely anxious. As needed medications being used and patient is maintained on risperdol and remains extremely anxious. Patient was noted to have elevated heart rate with some shortness of breath on exam maintained on 4 L via nasal cannula. Will obtain a chest x-ray and also discussed with cardiology. Patient denies any chest pain or shortness of breath although is dyspneic while talking on exam. Patient is afebrile and maintained on daptomycin with infectious disease following awaiting cultures on the catheter site from the previous dialysis port. Kidney functions remained stable with nephrology following and will continue current regimen. Patient has been transition to torsemide daily. Hemoglobin remained stable with no active bleeding noted. Encouraged oral intake and supervision with meals. Encouraged the patient to sit upright along with nursing staff as patient is found to be laying flat on exam each day. Patient is restless and squirms around in the bed all day making it difficult to maintain proper positioning. 09/19/2023 Patient is seen in follow-up today had elevated heart rates into the 150s and cardiology was reconsulted placing the patient on Cardizem drip and patient was brought to 3 S. patient's overall mentation continues to wax and wane with continuous confusion, anxiousness, agitation. Medications being adjusted and patient continues to be extremely weak and also continues to require a sitter at the bedside. Heart rate currently rate controlled and Cardizem on hold. Patient is afebrile with no reported chest pain or worsening shortness of breath. Patient is on 2 L via nasal cannula and needs continuous encouragement on keeping the oxygen on. Patient will continue on daptomycin while inpatient with infectious disease following. 09/21/2023 --the patient seems to be more comfortable compared to yesterday. Mobility is limited because of her ankle fracture. No new complaints otherwise. Remains on oxygen at 3 L with a pulse ox of 97%. Sitter is at bedside. No change in medications. No new labs from today. No other significant events overnight. Remains on broad-spectrum antibiotic coverage. Remains on a combination of risperidone and Requip. Remains on Demadex 20 mg p.o. per day. Renal function has remained stable. Patient is planned to be discharged to [facility] once clinically stable; case management on board and making discharge arrangements --Patient continues to require a sitter at bedside; can be transferred to skilled rehab if stable without sitter for 24 hours 09/22/2023 --the patient is seen and evaluated in room at bedside. She remains on oxygen at 3 L with a pulse ox of 96%. He had a minor fall yesterday as she was trying to get out of bed. Apparently she slept on the floor. No major injuries. No chest pain. No new labs from today. Creatinine from yesterday was at 2.02 with a BUN of 52. Medications are unchanged. Sitter is at the bedside. Chest x-ray from 09/21/2023 showed cardiomegaly. -- Patient remains stable on O2 at 2 L per nasal cannula -- Case management on board for plan for patient to be discharged to skilled rehab; patient continues to require sitter; can be discharged to rehab once sitter is discontinued -- Patient remains on IV daptomycin; ID on board 09/23/2023 Patient is seen in follow-up today currently sitting up in the chair with granddaughter at the bedside and mentation is significantly. Mentation continues to be waxing and waning throughout the day and will have good days and bad days. Patient continues with sitter as patient is impulsive and forgetful. Patient is to continue nonweightbearing of that right lower extremity for now until follow-up with orthopedics. Will have PT/OT therapy evaluate the patient. Plan is for ECF once patient is medically stable. Patient continues on antibiotics with infectious disease following. 09/24/2023 Patient is seen and evaluated today and mentation is improved and continues with a sitter for safety although discussed with nursing staff about removing. Patient's hemoglobin slightly low at 7.8 with no active bleeding noted will add iron studies and give a dose of IV iron. Nephrology following as well and kidney functions mildly elevated at 1.8. Follow-up on repeat labs in AM. Patient is afebrile and continues to request to go home. Recommend reevaluation by PT/OT therapy for updated notes to discuss possible ECF. Patient will require insurance authorization. 09/25/2023 Patient is seen in follow-up this morning currently sitting up in the chair without a sitter and mentation is much improved and appropriate at this time. Patient continues on antibiotics and IV Lasix with infectious disease and nephrology following. Patient is being transitioned to Bumex orally monitor kidney functions closely. Creatinine 1.9 today. Patient is making urine with no reports of chest pain or shortness of breath. Tolerating diet and eating more and would recommend PT/OT therapy daily as patient has had prolonged hospitalization plan/social work following working on discharge planning to ECF. Currently pending accepting facility and will also require insurance authorization. Review of systems: Constitutional: No reports of fatigue, fever, or chills, reports feeling less anxious Cardiovascular: No reports of chest pain or palpitations Respiratory: No reports of shortness of breath or cough GI: No reports of nausea, vomiting, reports having bowel movements : No reports of dysuria or retention Neurovascular: reports of generalized weakness, patient asks daily when she can go home All medications have been reviewed PHYSICAL EXAMINATION: GENERAL: The patient is on nasal cannula, awake alert and oriented x 2, slightly less anxious today, much more appropriate, elderly appearing, unkempt, ill- appearing HEENT: Pupils are round and equally reacting to light. EOMI. CARDIOVASCULAR: S1 and S2 muffled PULMONARY: Decreased breath sounds bilaterally with some scattered rhonchi noted ABDOMEN: Soft, nontender, nondistended, normoactive bowel sounds. No palpable organomegaly. MUSCULOSKELETAL: No joint swelling or deformity. EXTREMITIES: Right lower extremity bandage with partial cast noted NEUROLOGICAL: pupils reactive, more alert and appropriate today SKIN: Patient has right plantar surface ulcer on the posterior foot stage III-IV with areas of necrotic tissue. Casting and Tam wrap noted of the right lower ex tremity Assessment: Asystole/cardiopulmonary arrest x 2 with CPR/ROSC, unknown etiology Respiratory failure requiring intubation s/p extubation 08/25/2023 Concerns for chest wall cellulitis near the previous dialysis site, continued on daptomycin with ID following Large black stools, concern for GI bleed, ruled out, EGD showed antral gastritis Acute metabolic encephalopathy with concerns of anoxia, status postcardiac arrest Anemia, iron deficiency noted Congestive heart failure with systolic dysfunction acute on chronic exacerbation Acute hypoxic respiratory failure secondary to CHF Ischemic cardiomyopathy with improved EF Acute kidney injury secondary to ATN on chronic kidney disease stage III Urinary tract infection with E. coli Subacute fracture of the medial and lateral malleolus, orthopedics following with no plans of immediate surgical intervention at this time Right heel stage III pressure injury continue local wound care with aquacel ID following. Genital lesions, will need broom stitcher follow up outpatient for routine screenings Hypertension Hyperlipidemia Type 2 diabetes mellitus uncontrolled hgb a1c 12.1 Severe pulmonary hypertension COPD without any acute exacerbation Peripheral neuropathy GI prophylaxis DVT prophylaxis Full code Plan: Patient being followed by multiple medical consultation as well and health and safety manager has been removed. Patient less anxious and more appropriate today Recommend follow-up PT/OT therapy evaluation for updated notes. Patient has had significant improvement in mentation and extremely weak with prolonged hospitalization. Strongly recommend ECF for continued strength and mobility and more aggressive physical therapy. Continue with weight restrictions per orthopedics on the right lower extremity. Infectious disease following and patient is continued on antibiotics and will discuss further regarding discharge planning Discussed with case management/social work regarding discharge planning. Currently [facility] reviewing and will also require insurance authorization Wean FiO2 as tolerated. Patient currently on 2 L with oxygen saturations above 92%. Follow-up on repeat labs and monitor kidney functions and electrolytes. Hemogl obin 7.9 and was given a dose of IV iron, continue Aranesp Encouraged oral intake Continue monitoring Accu-Cheks before meals and at bedtime and will titrate insulins accordingly Due to multiple complex medical issues, overall prognosis is guarded The impression and plan of care has been dictated by Mouna Rowley, Nurse Practitioner as directed. Dr. Wyatt MD I have performed a history and examination and MDM of this patient, discussed the same with the dictator, and agree with the dictator's assessment and plan as written ,documented as a scribe. Based on total visit time, I have performed more than 50% of the visit. Objective - Vital Signs Vital signs: Vital Signs Temp 98.4 F 09/26/23 02:00 Pulse 82 09/26/23 02:00 Resp 24 09/26/23 02:00 BP 150/83 09/26/23 02:00 Pulse Ox 91 L 09/26/23 02:00 FiO2 3 09/02/23 04:00 Intake & Output 09/25/23 09/25/23 09/26/23 06:59 18:59 06:59 Output Total 400 Balance -400 Output: Urine 400 Other: Voiding Method Toilet Toilet # Voids 4 # Bowel Movements 3 ABP, PAP, CO, CI - Last Documented Arterial Blood Pressure 125/73 - Labs CBC & Chem 7: 09/25/23 04:17 09/25/23 04:17 Labs: Abnormal Lab Results - Last 24 Hours (Table) 09/25/23 09/25/23 09/25/23 Range/Units 04:17 04:17 12:29 RBC 2.75 L (4.10-5.20) X 10*6/uL Hgb 7.7 L (12.0-15.0) g/dL Hct 26.1 L (37.2-46.3) % MCHC 29.5 L (32.0-37.0) g/dL RDW 17.5 H (11.5-14.5) % Immature Gran # 0.08 H (0.00-0.04) X 10*3/uL Lymphocytes # 0.81 L (0.90-5.00) X 10*3/uL Monocytes # 1.09 H (0.20-1.00) X 10*3/uL BUN 56.8 H (9.0-27.0) mg/dL Creatinine 1.9 H (0.6-1.5) mg/dL Est GFR (CKD-EPI) 30 L (>=60) BUN/Creatinine Ratio 29.89 H (12.00-20.00) Ratio POC Glucose (mg/dL) 262 H (70-110) mg/dL Alkaline Phosphatase 193 H (41-126) U/L Albumin 3.1 L (3.8-4.9) g/dL Globulin 3.8 H (1.6-3.3) g/dL Albumin/Globulin Ratio 0.82 L (1.60-3.17) Ratio 09/25/23 09/25/23 Range/Units 17:04 20:39 RBC (4.10-5.20) X 10*6/uL Hgb (12.0-15.0) g/dL Hct (37.2-46.3) % MCHC (32.0-37.0) g/dL RDW (11.5-14.5) % Immature Gran # (0.00-0.04) X 10*3/uL Lymphocytes # (0.90-5.00) X 10*3/uL Monocytes # (0.20-1.00) X 10*3/uL BUN (9.0-27.0) mg/dL Creatinine (0.6-1.5) mg/dL Est GFR (CKD-EPI) (>=60) BUN/Creatinine Ratio (12.00-20.00) Ratio POC Glucose (mg/dL) 316 H 342 H (70-110) mg/dL Alkaline Phosphatase (41-126) U/L Albumin (3.8-4.9) g/dL Globulin (1.6-3.3) g/dL Albumin/Globulin Ratio (1.60-3.17) Ratio
[2023-09-26] MEDS: SPIRONOLACTONE 25 MG TAB PO SCH (08:49)
[2023-09-26] MEDS: BUMETANIDE 1 MG TAB PO SCH (08:49)
[2023-09-26 11:30] LABS: Glucose,Whole Blood 372 mg/dL (70-110)
--- NOTE | 2023-09-26 11:44 | P.PN ---
Subjective Progress Note Date: 09/26/23 CHIEF COMPLAINT: GI bleed HISTORY OF PRESENT ILLNESS: Patient is status post EGD revealing antral gastrit is. No further dark stools reported. Patient denies any abdominal pain. She is tolerating diet. hgb yesterday 7.7 PHYSICAL EXAM: VITAL SIGNS: Reviewed. GENERAL: no acute distress. ABDOMEN: Soft. Nondistended. Nontender. ASSESSMENT: 1. Acute GI bleed with melanotic stools. Now resolved. Status post EGD revealing antral gastritis PLAN: -Continue PPI -Continue regular diet Physician Medical Educator note has been reviewed by physician. Signing provider agrees with the documented findings, assessment, and plan of care. Objective - Vital Signs Vital signs: Vital Signs Temp 98.4 F 09/26/23 02:00 Pulse 80 09/26/23 07:40 Resp 17 09/26/23 07:40 BP 143/77 09/26/23 07:18 Pulse Ox 92 L 09/26/23 07:18 FiO2 3 09/02/23 04:00 Intake & Output 09/25/23 09/26/23 09/26/23 18:59 06:59 18:59 Output Total 400 Balance -400 Output: Urine 400 Other: Voiding Method Toilet Toilet Toilet # Voids 2 # Bowel Movements 2 ABP, PAP, CO, CI - Last Documented Arterial Blood Pressure 125/73 - Labs CBC & Chem 7: 09/25/23 04:17 09/25/23 04:17 Labs: Abnormal Lab Results - Last 24 Hours (Table) 09/25/23 09/25/23 09/25/23 Range/Units 12:29 17:04 20:39 POC Glucose (mg/dL) 262 H 316 H 342 H (70-110) mg/dL 09/26/23 09/26/23 Range/Units 06:04 11:28 POC Glucose (mg/dL) 265 H 372 H (70-110) mg/dL
--- NOTE | 2023-09-26 12:27 | P.PN ---
Subjective Progress Note Date: 09/26/23 History of Present Illness: The patient is a 57-year-old female with known history of hypertension, hyper lipidemia, diabetes mellitus as well as a history of coronary disease status post stenting of the RCA and chronic kidney disease who presented with dyspnea and had a cardiopulmonary arrest requiring CPR and mechanical ventilation. She is extubated, complaining of chest wall tenderness post CPR. She continues to be in sinus mechanism and hemodynamically stable. She had some bradycardia earlier and was started on IV dopamine. She is in sinus mechanism with no further bradycardia. Her urinary output has been stable. Her initial echo on presentation showed a preserved systolic function subsequently was found to have cardiomyopathy but that was done shortly after the event. She has a subacute fracture of the medial and lateral malleolus on the right side. August 26: The patient is sedated, she was quite agitated during the night. She had few episodes of sinus bradycardia, brief. She had no evidence of high-grade AV block. Her urinary output is stable. Her blood pressure is under good control without any vasopressors. Her repeat echocardiogram showed a preserved systolic function. She has been evaluated by neurology for possible anoxic encephalopathy. August 1: The patient is awake, confused. In sinus mechanism with no further episodes of high-grade AV block. Her blood pressure is stable. Her urinary output stable. There is no evidence of atrial fibrillation or ventricular ectopic activity. Repeat echocardiogram showed a normal left ventricle systolic function. August 28: The patient is sedated. She was agitated and confused during the night. She had no further episodes of bradycardia arrhythmia. Her blood pressure has been stable. She continues to be intubated. She is undergoing an EEG to evaluate her neurological status. There is no evidence of atrial fibrillation or ventricular tachyarrhythmia. August 29: The patient is more awake continues to have some episodes of confusion. She continues to be in sinus mechanism with no arrhythmia. Her EEG showed some improvement. Her urinary output has been good. Her blood pressure is stable and there is no evidence of significant hypotension. September 14, 2023 Seen and examined at bedside this a.m. Patient is confused and is in delirium state. She is needing a sitter to be present to calm her down. Mild volume overload 09/15 Patient has been transferred out of the intensive care unit. She is scheduled for EGD today due to GI bleed and stool for occult blood. Plavix is currently on hold but she has been continued on aspirin 81 mg daily. Patient remains quite confused with sitter at the bedside. Blood pressure 144/76, heart rate 82, pulse ox 90% on room air. Repeat blood work reveals stable hemoglobin of 9.4, BUN 30 creatinine 1.54. She is s/p transfusion of 2 units of packed RBCs. Patient has been picking at her nose and face and there is dried blood around her nose and mouth and both hands. 09/19 Patient has been on the [employer] floor most of this week and cardiology signed off as of 09/17. We have been reconsulted regarding bradycardia. Patient's heart rate was running in the 30s during the night and also today. Sinus rhythm. Patient received metoprolol tartrate 12.5 mg this morning. Patient is asymptomatic. On 09/15, patient underwent EGD that revealed antral gastritis. Pathology positive for mild chronic gastritis. She has not been resumed on DAPT. 09/20 Patient is seen today in follow-up. We have been reconsulted regarding bradycardia. Lopressor has been discontinued but patient did receive it yesterday morning. Heart rates are running between 43 and 62. Blood pressure 122/65, pulse ox 99% on 3 L nasal cannula. Telemetry sinus rhythm at 78 bpm. EKG sinus at 40 bpm. Patient denies lightheadedness or dizziness. Patient remains confused with product safety tester at the bedside. 09/21 Feeling good today, some confusion. No chest pain or pressure. No lightheadedness or dizziness. Hgb 9.2, creat 2.0. Blood pressure not well controlled. 09/23/2023 She denies any chest pain or pressure. She reports her breathing is better. Right leg swelling is slightly worse today. Blood pressure is not well- controlled. 09/23 Blood pressure 132/85, heart rate in the 90s, pulse ox 98% on 3 L nasal cannula. Repeat blood work reveals hemoglobin 7.8. BUN 55 creatinine 1.8. Potassium 5.4. Updated family member at bedside. Patient continues to have sitter. She continues to have confusion. She denies chest pain. Breathing seems to be stable. 09/24 Patient has been seen in follow-up today. Blood pressure 149/81, heart rate 88, pulse ox 94% on 3 L. Hemoglobin 7.7. BUN 56 creatinine 1.9. Potassium 5.2. 09/25 Yesterday potassium was decreased to 12.5 mg daily due to her increasing potassium level. IV Lasix was transitioned to oral Bumex 1 mg daily and Toprol XL 12.5 mg daily was added. Heart rate is in the 80s, blood pressure 143/77, pulse ox 92% on room air. Patient denies having any chest pain. studio set up worker is working on discharge planning to subacute rehab. Physical Examination: 57-year-old female, awake with some confusion, improved Head: Normocephalic. Eyes: Sclerae nonicteric. Neck: Good carotid upstroke, no bruit, mild elevated jugular venous distention. Lungs: Clear anteriorly Heart: Regular rate and rhythm, S1-S2, no S3, no rub. No murmur. Abdomen: Soft , positive bowel soun Extremities: Mild edema bilateral lower extremity R>L Impression: 1. Status post cardiopulmonary arrest, etiology unclear. No clear evidence of acute ischemic event. 2. Status post stenting of the RCA during prior admission, May 2023 3. Chronic kidney disease 4. Chest wall discomfort, stable 5. History of hyperlipidemia 6. History of hypertension 7. Bradycardia resolved 8. History of diabetes 9. Cardiomyopathy resolved 10. Anoxic encephalopathy, postarrest, improving 11. Delirium 12. Right heel wound 13. Black tarry stools, concern of GI bleeding Plan: Continue Aldactone 12.5 mg daily, Bumex 1 mg daily oral, Toprol XL 12.5 mg daily Continue aspirin and Plavix, Patient is cleared for discharge from cardiology and may follow-up in the office with Dr. Jose in 1 to 2 weeks. An event monitor can be arranged at that time. Cardiology will sign off this case and follow on an as-needed basis. Please reconsult for any new concerns. Nurse practitioner note has been reviewed, I agree with documented findings and plan of care. Patient was seen and examined. Objective - Vital Signs Vital signs: Vital Signs Temp 98.4 F 09/26/23 02:00 Pulse 80 09/26/23 07:40 Resp 17 09/26/23 07:40 BP 143/77 09/26/23 07:18 Pulse Ox 92 L 09/26/23 07:18 FiO2 3 09/02/23 04:00 Intake & Output 05/29/24 05/30/24 05/30/24 18:59 06:59 18:59 Output Total 400 Balance -400 Output: Urine 400 Other: Voiding Method Toilet Toilet Toilet # Voids 2 # Bowel Movements 2 ABP, PAP, CO, CI - Last Documented Arterial Blood Pressure 125/73 - Labs CBC & Chem 7: 09/25/23 04:17 09/25/23 04:17 Labs: Abnormal Lab Results - Last 24 Hours (Table) 09/25/23 09/25/23 09/25/23 Range/Units 04:17 12:29 17:04 RBC 2.75 L (4.10-5.20) X 10*6/uL Hgb 7.7 L (12.0-15.0) g/dL Hct 26.1 L (37.2-46.3) % MCHC 29.5 L (32.0-37.0) g/dL RDW 17.5 H (11.5-14.5) % Immature Gran # 0.08 H (0.00-0.04) X 10*3/uL Lymphocytes # 0.81 L (0.90-5.00) X 10*3/uL Monocytes # 1.09 H (0.20-1.00) X 10*3/uL POC Glucose (mg/dL) 262 H 316 H (70-110) mg/dL 09/25/23 09/26/23 Range/Units 20:39 06:04 RBC (4.10-5.20) X 10*6/uL Hgb (12.0-15.0) g/dL Hct (37.2-46.3) % MCHC (32.0-37.0) g/dL RDW (11.5-14.5) % Immature Gran # (0.00-0.04) X 10*3/uL Lymphocytes # (0.90-5.00) X 10*3/uL Monocytes # (0.20-1.00) X 10*3/uL POC Glucose (mg/dL) 342 H 265 H (70-110) mg/dL
--- NOTE | 2023-09-26 13:34 | P.PN ---
Subjective Progress Note Date: 09/26/23 The patient is seen today September 24, 2023 in follow-up on the regular medical floor. She is currently sitting up in a chair. Awake and alert in no acute distress. She is maintaining O2 saturations in the 90s on 3 L/min per nasal cannula. Afebrile. Hemodynamically stable. 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 She is status post 2 units of packed red blood cells this admission. Current hemoglobin 7.8. White count 8.9. Platelets 217. Sodium 138. Potassium 5.4. Bicarb 24. BUN 55. Creatinine 1.8. Glucose 122. She remains on daptomycin per ID services. Continued on bronchodilators. Remains on IV diuretics. Currently in a -1.8 L balance. The patient is seen today September 25, 2023 in follow-up on the regular medical floor. She is currently resting comfortably in bed. Awake and alert in no acute distress. She is maintaining good O2 saturations in the 90s on 3 L/min per nasal cannula. White count 7.9. Stool 3. Sodium 139. Potassium 5.2. Bicarb 24. BUN 57. Creatinine 1.9. Glucose 77. She remains on daptomycin. Continued on bronchodilators. Remains on diuretics. Her [place] catheter has been removed. No accurate I & O. The patient is seen today September 26, 2023 in follow-up on the regular medical floor. She is currently sitting up in a chair at the bedside. Awake and alert in no acute distress. Maintaining good O2 saturations in the 90s on room air. She is afebrile. Hemodynamically stable. Glucose 265. She remains on bronchodilators. Remains on oral diuretics. Continued on daptomycin per ID services. Objective - Vital Signs Vital signs: Vital Signs Temp 98.4 F 09/26/23 02:00 Pulse 80 09/26/23 07:40 Resp 17 09/26/23 07:40 BP 143/77 09/26/23 07:18 Pulse Ox 92 L 09/26/23 07:18 FiO2 3 09/02/23 04:00 Intake & Output 09/25/23 09/26/23 09/26/23 18:59 06:59 18:59 Output Total 400 Balance -400 Output: Urine 400 Other: Voiding Method Toilet Toilet Toilet # Voids 2 # Bowel Movements 2 ABP, PAP, CO, CI - Last Documented Arterial Blood Pressure 125/73 - Exam GENERAL EXAM: Alert, pleasant 58-year-old female, on room air, up in a chair, in no apparent distress. HEAD: Normocephalic. EYES: Normal reaction of pupils, equal size. NOSE: Clear with pink turbinates. THROAT: No erythema or exudates. NECK: No masses, no JVD. CHEST: No chest wall deformity. LUNGS: Equal air entry with no crackles, wheeze, rhonchi or dullness. CVS: S1 and S2 normal with no audible murmur, regular rhythm. ABDOMEN: No hepatosplenomegaly, normal bowel sounds, no guarding or rigidity. SPINE: No scoliosis or deformity SKIN: No rashes CENTRAL NERVOUS SYSTEM: No focal deficits, tone is normal in all 4 extremities. EXTREMITIES: There is no peripheral edema. No clubbing, no cyanosis. Peripheral pulses are intact. - Labs CBC & Chem 7: 09/25/23 04:17 09/25/23 04:17 Labs: Abnormal Lab Results - Last 24 Hours (Table) 09/25/23 09/25/23 09/26/23 Range/Units 17:04 20:39 06:04 POC Glucose (mg/dL) 316 H 342 H 265 H (70-110) mg/dL 09/26/23 Range/Units 11:28 POC Glucose (mg/dL) 372 H (70-110) mg/dL Assessment and Plan Assessment: Cardiopulmonary arrest, x 2, with cardiopulmonary resuscitation, and return of spontaneous circulation on 08/23/23 Acute hypoxic respiratory failure, post cardiac arrest. S/P intubation, and mechanical ventilation, secondary to cardiopulmonary arrest, August 23, 2023. She was extubated on 08/25/23. Currently on room air Encephalopathy, multifactorial, suspect post anoxic encephalopathy and cardiac arrest. Currently on risperidone and Requip for ongoing restlessness and encephalopathy Anemia status post EGD on September 16, 2023 with mild gastritis. No active bleeding. Current hemoglobin 7.7. History of congestive heart failure (HFPEF) Coronary artery disease/cardiomyopathy and the patient is post non-ST segment elevation myocardial infarction Stage III chronic kidney disease Right heel pressure ulcer, stage III Subacute fracture of the medial and lateral malleolus History of hypertension History of hyperlipidemia History of type 2 diabetes mellitus History of severe pulmonary hypertension History of COPD History of peripheral neuropathy Chest wall pain related to CPR Plan: The patient was seen and evaluated Labs and medications reviewed Currently stable and on room air Social work working on placement May be accepted at [facility] This patient was seen independently by the pulmonary nurse practitioner addr tahmina pulmonary issues I have personally seen and examined the patient, performed the documentation and the assessment and plan as written. Number of minutes spent on the visit: 24.
--- NOTE | 2023-09-26 14:43 | P.PN ---
Subjective Progress Note Date: 09/25/23 Principal diagnosis: Reason for follow-up is right heel diabetic foot ulcer Patient is a 57-year-old female with a past medical history significant for diabetes mellitus hypertension hyperlipidemia history of renal insufficiency requiring dialysis currently not on dialysis and the patient also have a chronic nonhealing wound to the right heel area, present to the hospital with increasing shortness of breath and swelling concerning for fluid overload.Patient did have a cardiac arrest around 4 AM 08/23/2023 with the patient went into asystole got resuscitated intubated and transferred to the ICU subsequently have another cardiac arrest with PEA rhythm not resuscitated. On today's evaluation that is 09/25/2023,the patient denies any fever or any chills, patient is breathing comfortably on 3 L nasal current oxygen the patient denies chest pain shortness of breath and no significant cough, patient denies abdominal pain, no nausea vomiting or diarrhea. Denies pain to the right chest wall wound area Patient did have white count of 7.98, creatinine is 1.9 Objective - Vital Signs Vital signs: Vital Signs Temp 97.6 F 09/25/23 08:00 Pulse 88 09/25/23 08:00 Resp 19 09/25/23 08:00 BP 149/81 09/25/23 08:00 Pulse Ox 94 L 09/25/23 08:00 FiO2 3 09/02/23 04:00 Intake & Output 09/24/23 09/25/23 09/25/23 18:59 06:59 18:59 Intake Total 900 Output Total 1 Balance 899 Intake: Intake, IV Titration 150 Amount DAPTOmycin 250 mg In 50 Sodium Chloride 0.9% 50 ml @ 100 mls/hr IVPB Q48H [facility] Rx#:[id number] Sodium Ferric Gluconat- 100 Sucrose 125 mg In Sodium Chloride 0.9% 100 ml @ 100 mls/hr IVPB ONCE ONE Rx#:[id number] Oral 750 Output: Urine/Stool Mix 1 Other: Voiding Method Toilet Toilet # Voids 4 # Bowel Movements 3 ABP, PAP, CO, CI - Last Documented Arterial Blood Pressure 125/73 - Exam GENERAL DESCRIPTION: Middle-aged female lying in bed in no distress RESPIRATORY SYSTEM: Unlabored breathing , decreased breath sounds at bases HEART: S1 S2 regular rate and rhythm , right chest wall wound is drying out no drainage ABDOMEN: Soft , no tenderness EXTREMITIES: Right heel wound is currently dressed no drainage Exam completed with the help of SOLID PROPELLANT PROCESSOR - Labs CBC & Chem 7: 09/25/23 04:17 09/25/23 04:17 Labs: Abnormal Lab Results - Last 24 Hours (Table) 09/24/23 09/24/23 09/24/23 Range/Units 04:27 17:02 20:31 RBC (4.10-5.20) X 10*6/uL Hgb (12.0-15.0) g/dL Hct (37.2-46.3) % MCHC (32.0-37.0) g/dL RDW (11.5-14.5) % Immature Gran # (0.00-0.04) X 10*3/uL Lymphocytes # (0.90-5.00) X 10*3/uL Monocytes # (0.20-1.00) X 10*3/uL BUN (9.0-27.0) mg/dL Creatinine (0.6-1.5) mg/dL Est GFR (CKD-EPI) (>=60) BUN/Creatinine Ratio (12.00-20.00) Ratio POC Glucose (mg/dL) 368 H 386 H (70-110) mg/dL Iron 23 L (50-170) UG/DL TIBC 196 L (228-460) UG/DL % Saturation 11.73 L (12.00-45.00) Transferrin 140.0 L (204.0-354.0) mg/dL Ferritin 496.0 H (10.0-291.0) ng/mL Alkaline Phosphatase (41-126) U/L Albumin (3.8-4.9) g/dL Globulin (1.6-3.3) g/dL Albumin/Globulin Ratio (1.60-3.17) Ratio 09/25/23 09/25/23 09/25/23 Range/Units 00:53 04:17 04:17 RBC 2.75 L (4.10-5.20) X 10*6/uL Hgb 7.7 L (12.0-15.0) g/dL Hct 26.1 L (37.2-46.3) % MCHC 29.5 L (32.0-37.0) g/dL RDW 17.5 H (11.5-14.5) % Immature Gran # 0.08 H (0.00-0.04) X 10*3/uL Lymphocytes # 0.81 L (0.90-5.00) X 10*3/uL Monocytes # 1.09 H (0.20-1.00) X 10*3/uL BUN 56.8 H (9.0-27.0) mg/dL Creatinine 1.9 H (0.6-1.5) mg/dL Est GFR (CKD-EPI) 30 L (>=60) BUN/Creatinine Ratio 29.89 H (12.00-20.00) Ratio POC Glucose (mg/dL) 151 H (70-110) mg/dL Iron (50-170) UG/DL TIBC (228-460) UG/DL % Saturation (12.00-45.00) Transferrin (204.0-354.0) mg/dL Ferritin (10.0-291.0) ng/mL Alkaline Phosphatase 193 H (41-126) U/L Albumin 3.1 L (3.8-4.9) g/dL Globulin 3.8 H (1.6-3.3) g/dL Albumin/Globulin Ratio 0.82 L (1.60-3.17) Ratio // Range/Units 12:29 RBC (4.10-5.20) X 10*6/uL Hgb (12.0-15.0) g/dL Hct (37.2-46.3) % MCHC (32.0-37.0) g/dL RDW (11.5-14.5) % Immature Gran # (0.00-0.04) X 10*3/uL Lymphocytes # (0.90-5.00) X 10*3/uL Monocytes # (0.20-1.00) X 10*3/uL BUN (9.0-27.0) mg/dL Creatinine (0.6-1.5) mg/dL Est GFR (CKD-EPI) (>=60) BUN/Creatinine Ratio (12.00-20.00) Ratio POC Glucose (mg/dL) 262 H (70-110) mg/dL Iron (50-170) UG/DL TIBC (228-460) UG/DL % Saturation (12.00-45.00) Transferrin (204.0-354.0) mg/dL Ferritin (10.0-291.0) ng/mL Alkaline Phosphatase (41-126) U/L Albumin (3.8-4.9) g/dL Globulin (1.6-3.3) g/dL Albumin/Globulin Ratio (1.60-3.17) Ratio Assessment and Plan (1) Pressure ulcer of right heel, stage 3 Current Visit: No Status: Acute Code(s): L89.613 - PRESSURE ULCER OF RIGHT HEEL, STAGE 3 SNOMED Code(s): 43201473981778 (2) Type 2 diabetes mellitus with foot ulcer Current Visit: No Status: Acute Code(s): E11.621 - TYPE 2 DIABETES MELLITUS WITH FOOT ULCER; L97.509 - NON-PRESSURE CHRONIC ULCER OTH PRT UNSP FOOT W UNSP SEVERITY SNOMED Code(s): 742085644 (3) UTI (urinary tract infection) Current Visit: Yes Status: Acute Code(s): N39.0 - URINARY TRACT INFECTION, SITE NOT SPECIFIED SNOMED Code(s): 45402598 (4) Aspiration pneumonia Current Visit: Yes Status: Acute Code(s): J69.0 - PNEUMONITIS DUE TO INHALATION OF FOOD AND VOMIT SNOMED Code(s): 353988264 Plan: 1patient with chronic nonhealing wound to the right heel area which has been there for a couple of months now patient overall wound base looks clean with no slough tissue in the wound base, patient to continue local wound care with Aquacel silver dressing change every 48 hours 2-patient did have cellulitis to the left chest wall site of previous dialysis catheter insertion and some purulent drainage reported by nursing staff, redness to the right chest wall has decreased no purulent drainage 3-patient has shown improvement of the cellulitis to the right chest wall continue with the daptomycin antibiotic and monitor clinical course closely Dictation was produced using [employer] software. please excuse any grammatical, word or spelling errors. Time with Patient: Less than 30
--- NOTE | 2023-09-26 14:44 | P.PN ---
Subjective Progress Note Date: 09/26/23 Principal diagnosis: Reason for follow-up is right heel diabetic foot ulcer Patient is a 57-year-old female with a past medical history significant for diabetes mellitus hypertension hyperlipidemia history of renal insufficiency requiring dialysis currently not on dialysis and the patient also have a chronic nonhealing wound to the right heel area, present to the hospital with increasing shortness of breath and swelling concerning for fluid overload.Patient did have a cardiac arrest around 4 AM 08/23/2023 with the patient went into asystole got resuscitated intubated and transferred to the ICU subsequently have another cardiac arrest with PEA rhythm not resuscitated. On today's evaluation that is 09/26/2023,the patient remains to be afebrile, patient is on room air not requiring supplemental oxygen and denies any shortness of breath no chest pain or cough.Patient denies having any nausea or vomiting, no abdominal pain and no diarrhea has been reported, urinary symptoms feeling better. No new labs has been repeated today Objective - Vital Signs Vital signs: Vital Signs Temp 98.4 F 09/26/23 02:00 Pulse 74 09/26/23 13:25 Resp 16 09/26/23 13:25 BP 121/75 09/26/23 13:25 Pulse Ox 92 L 09/26/23 13:25 FiO2 3 09/02/23 04:00 Intake & Output 09/25/23 09/26/23 09/26/23 18:59 06:59 18:59 Output Total 400 Balance -400 Output: Urine 400 Other: Voiding Method Toilet Toilet Toilet # Voids 2 # Bowel Movements 2 ABP, PAP, CO, CI - Last Documented Arterial Blood Pressure 125/73 - Exam GENERAL DESCRIPTION: Middle-aged female lying in bed in no distress RESPIRATORY SYSTEM: Unlabored breathing , decreased breath sounds at bases HEART: S1 S2 regular rate and rhythm , right chest wall wound is drying out no drainage ABDOMEN: Soft , no tenderness EXTREMITIES: Right heel wound is currently dressed no drainage Exam completed with the help of DIRECTOR OF STRATEGIC PROGRAMS - Labs CBC & Chem 7: 09/25/23 04:17 09/25/23 04:17 Labs: Abnormal Lab Results - Last 24 Hours (Table) 09/25/23 09/25/23 09/26/23 Range/Units 17:04 20:39 06:04 POC Glucose (mg/dL) 316 H 342 H 265 H (70-110) mg/dL 09/25/ Range/Units 11:28 POC Glucose (mg/dL) 372 H (70-110) mg/dL Assessment and Plan (1) Pressure ulcer of right heel, stage 3 Current Visit: No Status: Acute Code(s): L89.613 - PRESSURE ULCER OF RIGHT HEEL, STAGE 3 SNOMED Code(s): 10418739869408 (2) Type 2 diabetes mellitus with foot ulcer Current Visit: No Status: Acute Code(s): E11.621 - TYPE 2 DIABETES MELLITUS WITH FOOT ULCER; L97.509 - NON-PRESSURE CHRONIC ULCER OTH PRT UNSP FOOT W UNSP SEVERITY SNOMED Code(s): 022390397 (3) UTI (urinary tract infection) Current Visit: Yes Status: Acute Code(s): N39.0 - URINARY TRACT INFECTION, SITE NOT SPECIFIED SNOMED Code(s): 74939825 (4) Aspiration pneumonia Current Visit: Yes Status: Acute Code(s): J69.0 - PNEUMONITIS DUE TO INHALATION OF FOOD AND VOMIT SNOMED Code(s): 012701655 Plan: 1patient with chronic nonhealing wound to the right heel area which has been there for a couple of months now patient overall wound base looks clean with no slough tissue in the wound base, patient to continue local wound care with Aquacel silver dressing change every 48 hours 2-patient did have cellulitis to the right chest wall site of previous dialysis catheter insertion, for the patient has received adequate IV daptomycin which will be discontinued will give short course of oral doxycycline Dictation was produced using [employer] dictation software. please excuse any grammatical, word or spelling errors. Time with Patient: Less than 30
[2023-09-26] MEDS: FLUTICASONE 50MCG/SPRAY NASAL 16GM EA NOSTRIL SCH (15:56)
[2023-09-26 16:51] LABS: Glucose,Whole Blood 270 mg/dL (70-110)
--- NOTE | 2023-09-26 19:53 | P.PN ---
Subjective Patient is seen for follow-up for acute kidney injury. patient remains confused, although mentation is somewhat improved. serum creatinine at 1.9 mg/dL. Patient is currently being diuresed. Urine output not accurately charted. Objective - Vital Signs Vital signs: Vital Signs Temp 98.4 F 09/26/23 02:00 Pulse 74 09/26/23 13:25 Resp 16 09/26/23 13:25 BP 121/75 09/26/23 13:25 Pulse Ox 92 L 09/26/23 13:25 FiO2 3 09/02/23 04:00 Intake & Output 09/26/23 09/26/23 09/27/23 06:59 18:59 06:59 Weight 53 kg Other: Voiding Method Toilet Toilet # Voids 2 2 # Bowel Movements 2 2 ABP, PAP, CO, CI - Last Documented Arterial Blood Pressure 125/73 - Exam Patient is awake. She is comfortable. Confused Examination of the heart S1 and S2 Examination of the lungs bilateral breath sounds are heard Abdomen is soft nontender Examination of lower extremities shows 1+ edema. Right leg is in cast - Labs CBC & Chem 7: 09/25/23 04:17 09/25/23 04:17 Labs: Abnormal Lab Results - Last 24 Hours (Table) 09/25/23 09/26/23 09/26/23 Range/Units 20:39 06:04 11:28 POC Glucose (mg/dL) 342 H 265 H 372 H (70-110) mg/dL 09/26/23 Range/Units 16:49 POC Glucose (mg/dL) 270 H (70-110) mg/dL Assessment and Plan Assessment: 1. Acute kidney injury secondary to ATN secondary to cardiorenal syndrome and cardiac arrest. Creatinine at 1.9 yesterday. Patient was on hemodialysis in the past with last treatment being July 02, 2023. Dialysis catheter it is now removed. Renal US no hydronephrosis. 2. Volume overload. 3. Acute on chronic diastolic CHF. 4. Diabetes mellitus. 5. Right foot wound. 6. Coronary disease with cardiac stenting. 7. Status post PEA arrest with concern for anoxic encephalopathy. 8. Septic Shock-urine culture is growing E. coli. Catheter tip culture is growing corynebacterium, blood culture negative so far. 9. Metabolic acidosis, nongap, improved 10. Hypernatremia, status post D5W, improved Plan: continue with current diuretics. Repeat labs in a.m. Patient will need follow-up as outpatient postdischarge.
[2023-09-26 20:32] LABS: Glucose,Whole Blood 255 mg/dL (70-110)
[2023-09-26] MEDS: DOXYCYCLINE 100 MG CAP PO SCH (21:50)
--- NOTE | 2023-09-27 05:02 | P.PN ---
Subjective Progress Note Date: 09/26/23 57-year-old female came in with complaints of shortness of breath and orthopnea found to be in congestive heart failure exacerbation patient has congestive heart failure with reduced ejection fraction in the past patient has increasing pedal edema. Patient also has an ulcer in the right foot stage III-IV which appeared to be infected we will consult wound care and infectious disease. Patient was on hemodialysis during last hospitalization her creatinine presently is 1.5 which is significantly improved patient potassium is 5.5, patient is on Entresto and Aldactone Aldactone will be held Entresto will be continued since she is receiving IV Lasix and expecting her potassium to improve if it does not improve or get worse then Entresto need to be discontinued as well. Patient has hypervolemic hyponatremia and hyperglycemia. 08/21/2023 Was evaluated today on the medical floor. Patient was continued on IV Lasix overnight however she was no longer reporting any shortness of breath and her lower extremity edema has improved. She was taken off of the Lasix at this time due to increased creatinine up to 2.31 additionally potassium remains elevated at 5.7. Echocardiogram comes back showing an improved ejection fraction of 60 to 65% because of this and also the hyperkalemia patient will not be continued on entresto. Patient was evaluated by infectious disease who felt like that heel ulcer on the right side was more likely a pressure injury stage III and is recommending local wound care to continue with Aquacel. Patient is reporting significant pain to the right foot and feels like it is fractured. Upon review of the patient's chart she did have a x-ray completed of this 12 days ago ordered by her immigration coordinator Dr. Mayen. Ankle x-ray did review a mildly displaced acute distal fibular fracture. Repeat x-ray of the foot and ankle completed today does reveal a subacute fractures of the medial and lateral malleolus. The lateral malleolus fracture was seen on the patient's prior exam the medial malleolus fracture may be new in the interval and this would be considered an unstable ankle fracture. There is interval 6 mm displacement of the lateral malleolus. There is a deep soft tissue ulcer at the plantar heel with no clear radiographic findings of a contagious osteomyelitis at this time. Orthooedics was consulted for this. 08/22/2023 Patient evaluated in follow-up today resting in bed. She was taken off of the Lasix remains off at this time. Bladder scan was requested and not done yesterday to rule out urinary retention, creatinine today is increased up to 2.56. Bladder scan was done require urinary straight catheterization of 550 mL taken out. Urinalysis was sent which is significantly abnormal. Patient is also noted to have multiple genital lesions which appear wartlike she admits to not having any routine gynecological screenings for many years. She is not having any vaginal bleeding or discharge. Renal ultrasound has been ordered to rule out any obstructive uropathy. 08/23/2023 Patient is evaluated today in follow-up patient had a cardiac event with cardiac arrest windows systems admin around 445 AM with initial rhythm slowing asystole patient was started on CPR with ACS protocol patient did receive ROSC after 6 to 8 minutes and was transferred to the intensive care unit. Patient upon arrival to the intensive care unit had another episode of cardiac arrest patient had bradycardia while on pressors in the ICU patient was intubated following the first cardiac arrest and is currently on the mechanical ventilator 50% FiO2. Chest x-ray showing similar interstitial and patchy component airspace disease right greater than left. There is a possible trace left pleural effusion. A brain CT which shows no acute intracranial process. Blood work today shows a white blood cell count of 13.8, hemoglobin 9.5, sodium level of 135, BUN of 62, creatinine of 2.76. AST ALT and alk phosphatase are significantly elevated consistent with a shock liver. TSH 3.310. Urinalysis is abnormal. Her urine culture is showing gram-negative bacilli patient is covered for the urinary tract infection as well as aspiration with IV Zosyn being managed by infectious disease. Patient is currently sedated with propofol and did require vasopressor support with Levophed which has been weaned at this time. Will discontinue the gabapentin patient is continued on aspirin Plavix and statin has been placed on hold. There is concern for possible arrhythmia precipitating the asystole additionally we need to rule out embolism and a D-dimer has been ordered. 08/24/2023 Patient is seen in follow-up today continues in the ICU on mechanical ventilation. FiO2 is 50% although titrating and was just placed at 40% with a PEEP of 5. Chest x-ray today shows that the ET tube is 7 mm from the sonam suggesting a pulled back 2 cm and reassess and also suspected underlying vascular congestion. Neuro is following and per nursing staff patient is following some simple commands and undergoing sedation holidays. Patient noted to have reduced EF of 30 to 35% and cardiology had been following. Will reconsult and appreciate input and recommendations. patient did have dialysis catheter removed and sent for cultures which are pending. Infectious disease following and patient is maintained on antibiotic. D-dimer is elevated above 16 and will attempt to obtain a VQ scan.57-year-old female came in with complaints of shortness of breath and orthopnea found to be in congestive heart failure exacerbation patient has congestive heart failure with reduced ejection fraction in the past patient has increasing pedal edema. Patient also has an ulcer in the right foot stage III-IV which appeared to be infected we will consult wound care and infectious disease. Patient was on hemodialysis during last hospitalization her creatinine presently is 1.5 which is significantly improved patient potassium is 5.5, patient is on Entresto and Aldactone Aldactone will be held Entresto will be continued since she is receiving IV Lasix and expecting her potassium to improve if it does not improve or get worse then Entresto need to be discontinued as well. Patient has hypervolemic hyponatremia and hyperglycemia. 08/21/2023 Was evaluated today on the medical floor. Patient was continued on IV Lasix overnight however she was no longer reporting any shortness of breath and her lower extremity edema has improved. She was taken off of the Lasix at this time due to increased creatinine up to 2.31 additionally potassium remains elevated at 5.7. Echocardiogram comes back showing an improved ejection fraction of 60 to 65% because of this and also the hyperkalemia patient will not be continued on entresto. Patient was evaluated by infectious disease who felt like that heel ulcer on the right side was more likely a pressure injury stage III and is recommending local wound care to continue with Aquacel. Patient is reporting significant pain to the right foot and feels like it is fractured. Upon review of the patient's chart she did have a x-ray completed of this 12 days ago ordered by her immigration coordinator Dr. Mayen. Ankle x-ray did review a mildly displaced acute distal fibular fracture. Repeat x-ray of the foot and ankle completed today does reveal a subacute fractures of the medial and lateral malleolus. The lateral malleolus fracture was seen on the patient's prior exam the medial malleolus fracture may be new in the interval and this would be considered an unstable ankle fracture. There is interval 6 mm displacement of the lateral malleolus. There is a deep soft tissue ulcer at the plantar heel with no clear radiographic findings of a contagious osteomyelitis at this time. Orthooedics was consulted for this. 08/22/2023 Patient evaluated in follow-up today resting in bed. She was taken off of the Lasix remains off at this time. Bladder scan was requested and not done yesterday to rule out urinary retention, creatinine today is increased up to 2.56. Bladder scan was done require urinary straight catheterization of 550 mL taken out. Urinalysis was sent which is significantly abnormal. Patient is also noted to have multiple genital lesions which appear wartlike she admits to not having any routine gynecological screenings for many years. She is not having any vaginal bleeding or discharge. Renal ultrasound has been ordered to rule out any obstructive uropathy. 08/23/2023 Patient is evaluated today in follow-up patient had a cardiac event with cardiac arrest windows systems admin around 445 AM with initial rhythm slowing asystole patient was started on CPR with ACS protocol patient did receive ROSC after 6 to 8 minutes and was transferred to the intensive care unit. Patient upon arrival to the intensive care unit had another episode of cardiac arrest patient had bradycardia while on pressors in the ICU patient was intubated following the first cardiac arrest and is currently on the mechanical ventilator 50% FiO2. Chest x-ray showing similar interstitial and patchy component airspace disease right greater than left. There is a possible trace left pleural effusion. A brain CT which shows no acute intracranial process. Blood work today shows a white blood cell count of 13.8, hemoglobin 9.5, sodium level of 135, BUN of 62, creatinine of 2.76. AST ALT and alk phosphatase are significantly elevated consistent with a shock liver. TSH 3.310. Urinalysis is abnormal. Her urine culture is showing gram-negative bacilli patient is covered for the urinary tract infection as well as aspiration with IV Zosyn being managed by infectious disease. Patient is currently sedated with propofol and did require vasopressor support with Levophed which has been weaned at this time. Will discontinue the gabapentin patient is continued on aspirin Plavix and statin has been placed on hold. There is concern for possible arrhythmia precipitating the asystole additionally we need to rule out embolism and a D-dimer has been ordered. 08/24/2023 Patient is seen in follow-up today continues in the ICU on mechanical ventil ation. FiO2 is 50% although titrating and was just placed at 40% with a PEEP of 5. Chest x-ray today shows that the ET tube is 7 mm from the sonam suggesting a pulled back 2 cm and reassess and also suspected underlying vascular congestion. Neuro is following and per nursing staff patient is following some simple commands and undergoing sedation holidays. Patient noted to have reduced EF of 30 to 35% and cardiology had been following. Will reconsult and appreciate input and recommendations. patient did have dialysis catheter removed and sent for cultures which are pending. Infectious disease following and patient is maintained on antibiotic. D-dimer is elevated above 16 and will atte mpt to obtain a VQ scan. 08/25/23 : Patient seen and evaluated at bedside, patient extubated around noon, transition to 5 L of oxygen to nasal cannula. Family at bedside, blood work reviewed hemoglobin 10.3, serum chemistry reviewed sodium 140 potassium 4.8 BUN 57 creatinine 2.49 calcium of 7. 08/26/23 : Patient seen and evaluated at bedside, patient remains in medical ICU, does complain of chest pain from CPR. Patient has been weaned off dopamine, cardiology following, blood work reviewed, hemoglobin 8.5 platelet count of 217, serum chemistry shows sodium 141 BUN 51 creatinine 2.28. Followed up by nephrology as well MARYLOU secondary to ATN continue to monitor intake and output 08/27/23: Patient seen and evaluated bedside, on evaluation patient is disoriented, patient is drowsy however likely having acute delirium. Seen by cardiology echocardiogram shows preserved ejection fraction continue with current medical management, patient on Precedex for acute delirium, continue to remain on oxygen supplementation with nasal cannula blood work reviewed CBC showed WBC 8.2 hemoglobin 8.6 serum chemistry showed creatinine of 2.22. Patient remains delirious, daughter at bedside all questions answered 08/28/2023 Patient was agitated earlier requiring Seroquel and Placed on Precedex because she was has risk to self and others Currently when I saw the patient she was sleepy However she is not tachypneic show does not look in pain. Vitals are stable She is saturating 91% on 2 L oxygen via nasal cannula She remains on Zosyn for pneumonia and UTI She is on normal saline at 50 mL/h 08/29/2023 Patient remains sleepy, she still has some encephalopathy But she is on Precedex which will be tapered off by pulmonary team today to assess her mentation as well. Patient has been followed by neurology for suspected anoxic brain injury after her cardiac arrest and return of circulation on 08/22. There is no evidence of seizure-like activity She has catheter tip infection with culture growing Corynebacterium species and she is currently covered with Zosyn which also help for her right heel pressure ulcer and aspiration pneumonia and UTI. Cardiology evaluated the patient and there is no clear evidence for her cardiac arrest although she has history of coronary artery disease and previous stents. Currently with no chest pain. She remains on aspirin and Plavix, gentle hydration, IV steroids 08/30/2023 Today her sedation remains off however patient mentation not completely resolved, it is somewhat better as she was more sleepy yesterday She is eating okay, swallowing is fine She was started on IV Lasix twice daily per braider setter. She has good urine output and normal send discontinued She is hemodynamically stable and oxygenation is acceptable Remains on aspirin and Plavix and Seroquel 08/31/23: Seen and evaluated at bedside, patient remains on 4 L of oxygen, blood work reviewed, WBC 7.3 hemoglobin 9.1 platelet count of 203 glucose 119. CBC reviewed showed WBC 7.3 hemoglobin 9.1 platelet count of 203.. Neurology consulted and following. Patient is awake and alert able to answer questions and follow commands sister at bedside all questions answered 09/01/23: Seen and evaluated at bedside, patient vitals reviewed, serum chemistry reviewed sodium 145 potassium 4.6 creatinine 2.71, CBC reviewed patient remains on IV Zosyn , appreciate input from nephrology continue patient on IV Lasix, delirium persist 09/02/23: Patient seen and evaluated bedside, patient been admitted for cardiopulmonary arrest, respiratory failure s/p extubation on nasal cannula however continues to remain delirious. Blood work reviewed hemoglobin 8.8, platelet count 226, serum chemistry reviewed creatinine 2.55 potassium 4.5. MRI brain has been ordered which is pending, patient remains disoriented 09/03/2023 Patient is seen in follow-up status post recent extubation maintained on a few liters of pulmonary cartography/mapping technician following closely. Cardiology following as well and adjusted medications recommending continuing with current medication regimen. No change in mentation as patient continues with periods of confusion and restlessness. Medications being adjusted and Ativan as needed has been added. Continue Seroquel. Patient will answer questions appropriately and discuss her health history and can recall her doctors names but will ramble on regarding something irrelevant during conversation. Patient is redirectable. Patient continues with partial cast noted on the lower extremity. Patient continues on IV Lasix and kidney functions are improving nephrology following closely. Plan is for patient to possibly move out of the ICU. Will have PT/OT therapy evaluate the patient and discuss further with consultations along with case management regarding possible ECF versus discharge planning. 09/04/2023 Patient seen in follow-up today and continues to have periods of confusion and restlessness. Patient continues in the ICU with multiple medical consultations following. Hemoglobin was found to be less than 7 today and will transfuse 1 unit of PRBC. Sodium 147 and recommend repeat labs as well. Nephrology is following and patient is continued on IV Lasix. MRI of the brain remains pending and neurology is following. 09/05/2023 Patient is seen and evaluated today continues to be in the ICU needs continuous reinforcement on keeping oxygen on. Patient does have a medical safety director at the bedside. Patient is currently resting although remains confused and anxious and agitated at times. Hemoglobin is stable above 7 status post 1 unit of PRBC. Patient continues on IV Lasix daily and nephrology following closely. Patient to continue on IV antibiotics with infectious disease following. 09/06/2023 Patient seen in follow-up today continues to be sleepy at this time although when awake patient is extremely restless and agitated requiring sitter at the bedside. Adjustments to medications being made and Risperdal is being increased and will continue with Seroquel. Ativan as needed. Patient's hemoglobin is stable with no active bleeding noted. Neurology following as patient continues to be unable to obtain an MRI and will have a repeat EEG as well as CT brain per neurology. Patient is afebrile and is continued on antibiotics with infectious disease following. 09/09/2023 Patient seen in follow-up today has been transitioned out of the ICU and curren tly on selective unit and continues with medical safety director at the bedside. Patient is keeping her oxygen on currently and is on 4 L. Multiple medical consultations following and per nursing staff patient was able to get up and work with physical therapy today. Plan is for ECF when patient's mentation is improved. Patient continues on IV Lasix twice daily as well with nephrology following. Continue Ativan as needed and patient is also maintained on Risperdal twice daily. Patient is afebrile with no reports of chest pain or shortness of breath. Hemoglobin is stable at 9.8 and white count is normal and kidney functions are improving. Continue monitoring Accu-Cheks before meals and at bedtime and will continue with sliding scale. Neurology following and patient is scheduled to undergo repeat brain CT today. Chest x-ray continues to show pulmonary vascular congestion. 09/10/2023 Patient is seen in follow-up today and mentation is much improved with family sitting at the bedside. Patient is able to have conversation and reports she is going home although patient has significant weakness and will be requiring ECF on discharge. Case management following awaiting for ECF evaluation and will require insurance authorization. Patient is afebrile and has been on IV antibiotics in the form of Zosyn with infectious disease following and white count remains normal and patient will be monitored off antibiotic therapy. Patient also continues on IV Lasix twice daily along with treatments and continued supplemental oxygen. Patient is on 4 L via nasal cannula. 09/11/2023 Patient is seen in follow-up this morning continues to display periods of confusion with increased agitation and restlessness. Per nursing staff patient had reports of hallucinating and seeing things crawling in the room that were not there. Patient is extremely anxious today although continues to be more mikaela ke. Patient reports is eating without much of an appetite. Patient has been compliant with working with physical therapy and will require ECF on discharge. Patient continues with medical safety director as patient is impulsive and attempts to get up out of the bed impulsively. Will ask for psychiatry to reevaluate and adjust medications. Will discontinue Dilaudid as the hallucinations appeared shortly after receiving this medication. Patient does elicit pain in the right leg and foot. 09/12/2023 Patient is seen in follow-up today and continues with confusion and requiring a sitter for safety. Patient has been working with physical therapy and reports she is doing well and ready to go home although she will require ECF for continued strength and mobility. Patient is extremely impulsive and restless at times. Asking psychiatry to reevaluate and will adjust medications. Family also working on obtaining guardianship as patient is not making sound decisions for herself medically. Family report they also cannot take her home and take care of her as they are elderly. Patient is afebrile with no reported chest pain or shortness of breath. Patient continues on 4 L and continues to remove her oxygen frequently. Patient is maintained on IV Lasix and being transition to daily. Continue monitoring kidney functions and nephrology is following. Being monitored off antibiotic therapy 09/13/2023 Patient is seen in follow-up this morning continues with a sitter at the bedside. Per nursing staff patient had a large black bowel movement and was incontinent. Occult Was positive and stat repeat hemoglobin was obtained and actually improved from previous at 9.5. Patient is maintained on aspirin, Plavix, and heparin and will hold for now. No GI available and will consult general surgery for evaluation of possible GI bleed. Contents do not appear to be melanotic on exam although dark stools are noted. Multiple other consultations following as well as psychiatry who reevaluated and adjusted medications. Mentation is improved today and less anxious and agitated and per nursing staff more appropriate today. Will continue current regimen and also continue CHURN OPERATOR MARGARINE and narcotic agents. 09/14/2023 Patient is evaluated in follow-up with sister at the bedside as well as family. General surgery is planning for an upper endoscopy on Saturday with no further reports of any black or bloody stool. Aspirin Plavix and heparin remain on hold. Patient was seen in follow-up by psychiatry for now continues on Prolixin as needed, olanzapine as needed. Patient is maintained on risperidone twice a day scheduled. Patient's mentation she is currently alert x 1-0 she is hallucinating and appears delirious. Continues on IV Lasix 40 mg every 12 hours. Continues on IV daptomycin. Continues in the cast to the right lower extremity. Bun is 32, creatinine is 1.57, magnesium 1.7. White blood cell count 5.1. 09/15/2023 Patient evaluated today with medical safety director at the bedside. Patient has no further episodes of bloody stool and is scheduled to undergo an endoscopy on Saturday. Patient is more awake alert today and is more appropriate although she continues to have hallucinations. Patient continues on IV daptomycin with concerns for lower extremity cellulitis. No significant complaints today. 09/16/2023 Patient is seen in follow-up continues with confusion and sitter at the bedside. Patient is n.p.o. currently and scheduled to undergo EGD today with general surgery. Hemoglobin is stable and 9.4 with no active bleeding other than nosebleed. Patient is maintained on Afrin as needed. Patient continues on room air and weaning as tolerated. 91% on room air with pulmonary following. Case management/social work following as well with plans on attempting to have patient go to ECF for significant weakness. Patient continues with sitter at this time making it difficult for placement although patient continues to be somewhat confused and restless and impulsive. Patient is afebrile with no reports of chest pain or shortness of breath. Patient currently n.p.o. and diet will be resumed once cleared by surgery. Kidney functions improving and patient remains on IV Lasix with nephrology following. 09/17/2023 Patient seen and evaluated in follow-up this morning and mood is appropriate, less anxious and restless and responding more appropriately to questions and com mands. Patient does have a sitter for safety at the bedside and if mentation continues to improve need to consider having sitter removed. Patient with significant weakness and prolonged hospitalization will need ECF on discharge. Parents are working on guardianship to help with patient's overall medical care. Patient maintained on IV Lasix showing improvements with nephrology following and will be switching to torsemide. Follow-up on repeat labs and replace electrolytes per protocol. Hemoglobin is stable above 9 with no active bleeding noted. Patient is status post EGD showing antral gastritis. Patient continues to have incontinence with multiple bowel movements although no dark stools or bleeding noted. Cardiology following recommending resuming Plavix when bleeding is stable. Patient continues to have intermittent nosebleeds and has been placed on humidification as patient continues on 4 L via nasal cannula. Patient found multiple times on exam on room air with no oxygen. Recommend to wean FiO2 as tolerated and documented evaluate oxygen saturations while on room air. Recommend PT/OT therapy daily. 09/18/2023 Patient is seen in follow-up today and patient continues to be confused and extremely anxious. As needed medications being used and patient is maintained on risperdol and remains extremely anxious. Patient was noted to have elevated heart rate with some shortness of breath on exam maintained on 4 L via nasal cannula. Will obtain a chest x-ray and also discussed with cardiology. Patient denies any chest pain or shortness of breath although is dyspneic while talking on exam. Patient is afebrile and maintained on daptomycin with infectious disease following awaiting cultures on the catheter site from the previous dialysis port. Kidney functions remained stable with nephrology following and will continue current regimen. Patient has been transition to torsemide daily. Hemoglobin remained stable with no active bleeding noted. Encouraged oral intake and supervision with meals. Encouraged the patient to sit upright along with nursing staff as patient is found to be laying flat on exam each day. Patient is restless and squirms around in the bed all day making it difficult to maintain proper positioning. 09/19/2023 Patient is seen in follow-up today had elevated heart rates into the 150s and cardiology was reconsulted placing the patient on Cardizem drip and patient was brought to 3 S. patient's overall mentation continues to wax and wane with continuous confusion, anxiousness, agitation. Medications being adjusted and patient continues to be extremely weak and also continues to require a sitter at the bedside. Heart rate currently rate controlled and Cardizem on hold. Patient is afebrile with no reported chest pain or worsening shortness of breath. Patient is on 2 L via nasal cannula and needs continuous encouragement on keeping the oxygen on. Patient will continue on daptomycin while inpatient with infectious disease following. 09/21/2023 --the patient seems to be more comfortable compared to yesterday. Mobility is limited because of her ankle fracture. No new complaints otherwise. Remains on oxygen at 3 L with a pulse ox of 97%. Sitter is at bedside. No change in medications. No new labs from today. No other significant events overnight. Remains on broad-spectrum antibiotic coverage. Remains on a combination of risperidone and Requip. Remains on Demadex 20 mg p.o. per day. Renal function has remained stable. Patient is planned to be discharged to [facility] once clinically stable; case management on board and making discharge arrangements --Patient continues to require a sitter at bedside; can be transferred to skilled rehab if stable without sitter for 24 hours 09/22/2023 --the patient is seen and evaluated in room at bedside. She remains on oxygen at 3 L with a pulse ox of 96%. He had a minor fall yesterday as she was trying to get out of bed. Apparently she slept on the floor. No major injuries. No chest pain. No new labs from today. Creatinine from yesterday was at 2.02 with a BUN of 52. Medications are unchanged. Sitter is at the bedside. Chest x-ray from 09/21/2023 showed cardiomegaly. -- Patient remains stable on O2 at 2 L per nasal cannula -- Case management on board for plan for patient to be discharged to skilled rehab; patient continues to require sitter; can be discharged to rehab once sitter is discontinued -- Patient remains on IV daptomycin; ID on board 09/23/2023 Patient is seen in follow-up today currently sitting up in the chair with granddaughter at the bedside and mentation is significantly. Mentation continues to be waxing and waning throughout the day and will have good days and bad days. Patient continues with sitter as patient is impulsive and forgetful. Patient is to continue nonweightbearing of that right lower extremity for now until follow-up with orthopedics. Will have PT/OT therapy evaluate the patient. Plan is for ECF once patient is medically stable. Patient continues on antibiotics with infectious disease following. 09/24/2023 Patient is seen and evaluated today and mentation is improved and continues with a sitter for safety although discussed with nursing staff about removing. Patient's hemoglobin slightly low at 7.8 with no active bleeding noted will add iron studies and give a dose of IV iron. Nephrology following as well and kidney functions mildly elevated at 1.8. Follow-up on repeat labs in AM. Patient is afebrile and continues to request to go home. Recommend reevaluation by PT/OT therapy for updated notes to discuss possible ECF. Patient will require insurance authorization. 09/25/2023 Patient is seen in follow-up this morning currently sitting up in the chair without a sitter and mentation is much improved and appropriate at this time. Patient continues on antibiotics and IV Lasix with infectious disease and nephrology following. Patient is being transitioned to Bumex orally monitor kidney functions closely. Creatinine 1.9 today. Patient is making urine with no reports of chest pain or shortness of breath. Tolerating diet and eating more and would recommend PT/OT therapy daily as patient has had prolonged hospitalization plan/social work following working on discharge planning to ECF. Currently pending accepting facility and will also require insurance authorization. 09/26/2023 Patient is seen and evaluated in follow-up today with multiple medical consultations following. Patient's mentation is much improved and more appropriate and has been accepted by [facility] currently awaiting insurance authorization. Patient with significant weakness and prolonged hospitalization would benefit from ECF for continued strength and mobility. Patient was continued on daptomycin and has received adequate antibiotic coverage per ID recommendations and will continue a short course of doxycycline to complete the course. Patient to follow-up with orthopedics outpatient. Continue with local wound of the right lower extremity. Patient with occasional nosebleeds will use Afrin and add Flonase. Continue with gentle humidification with oxygen supplementation as needed. Patient is afebrile denies chest pain or shortness of breath. Patient has been tolerating diet and eating more. Review of systems: Constitutional: No reports of fatigue, fever, or chills Cardiovascular: No reports of chest pain or palpitations Respiratory: No reports of shortness of breath or cough GI: No reports of nausea, vomiting, reports having bowel movements : No reports of dysuria or retention Neurovascular: reports of generalized weakness, patient asks daily when she can go home All medications have been reviewed PHYSICAL EXAMINATION: GENERAL: The patient is on nasal cannula, awake alert and oriented x 2, mentation significantly improved, much more appropriate, elderly appearing, unkempt, ill-appearing HEENT: Pupils are round and equally reacting to light. EOMI. CARDIOVASCULAR: S1 and S2 muffled PULMONARY: Decreased breath sounds bilaterally with some scattered rhonchi noted ABDOMEN: Soft, nontender, nondistended, normoactive bowel sounds. No palpable organomegaly. MUSCULOSKELETAL: No joint swelling or deformity. EXTREMITIES: Right lower extremity bandage with partial cast noted NEUROLOGICAL: pupils reactive, more alert and appropriate today SKIN: Patient has right plantar surface ulcer on the posterior foot stage III-IV with areas of necrotic tissue. Casting and Tam wrap noted of the right lower extremity Assessment: Asystole/cardiopulmonary arrest x 2 with CPR/ROSC, unknown etiology Respiratory failure requiring intubation s/p extubation 08/25/2023 Concerns for chest wall cellulitis near the previous dialysis site, continued on daptomycin with ID following, will transition to oral Doxy to complete the course Large black stools, concern for GI bleed, ruled out, EGD showed antral gastritis Acute metabolic encephalopathy with concerns of anoxia, status postcardiac arrest Anemia, iron deficiency noted Congestive heart failure with systolic dysfunction acute on chronic exacerbation Acute hypoxic respiratory failure secondary to CHF Ischemic cardiomyopathy with improved EF Acute kidney injury secondary to ATN on chronic kidney disease stage III Urinary tract infection with E. coli Subacute fracture of the medial and lateral malleolus, orthopedics following with no plans of immediate surgical intervention at this time Right heel stage III pressure injury continue local wound care with aquacel ID following. Genital lesions, will need airplane fueler follow up outpatient for routine screenings Hypertension Hyperlipidemia Type 2 diabetes mellitus uncontrolled hgb a1c 12.1 Severe pulmonary hypertension COPD without any acute exacerbation Peripheral neuropathy GI prophylaxis DVT prophylaxis Full code Plan: Patient being followed by multiple medical consultation as well and medical safety director has been removed. Patient's mentation has significantly improved and more appropriate Recommend follow-up PT/OT therapy evaluation daily. Patient has had significant improvement in mentation and extremely weak with prolonged hospitalization. Strongly recommend ECF for continued strength and mobility and more aggressive physical therapy. Continue with weight restrictions per orthopedics on the right lower extremity. Infectious disease following and patient is continued on antibiotics and being transition to oral doxycycline to complete a short course on discharge Discussed with case management/social work regarding discharge planning. Currently [facility] has accepted the patient awaiting insurance authorization Wean FiO2 as tolerated. Patient currently on 2 L with oxygen saturations above 92%. Continue with Afrin as needed and Flonase as patient has intermittent nosebleeds. Continued humidified oxygen Follow-up on repeat labs and monitor kidney functions and electrolytes. Hemoglobin 7.9 and was given a dose of IV iron, continue Aranesp Encouraged oral intake Continue monitoring Accu-Cheks before meals and at bedtime and will titrate insulins accordingly Due to multiple complex medical issues, overall prognosis is guarded Possible discharge in the next 24 to 48 hours The impression and plan of care has been dictated by Mouna Rowley, Nurse Practitioner as directed. Dr. Wyatt MD I have performed a history and examination and MDM of this patient, discussed the same with the dictator, and agree with the dictator's assessment and plan as written ,documented as a scribe. Based on total visit time, I have performed more than 50% of the visit. Objective - Vital Signs Vital signs: Vital Signs Temp 98.4 F 09/26/23 02:00 Pulse 80 09/26/23 07:40 Resp 17 09/26/23 07:40 BP 143/77 09/26/23 07:18 Pulse Ox 92 L 09/26/23 07:18 FiO2 3 09/02/23 04:00 Intake & Output 09/25/23 09/26/23 09/26/23 18:59 06:59 18:59 Output Total 400 Balance -400 Output: Urine 400 Other: Voiding Method Toilet Toilet Toilet # Voids 2 # Bowel Movements 2 ABP, PAP, CO, CI - Last Documented Arterial Blood Pressure 125/73 - Labs CBC & Chem 7: 09/25/23 04:17 09/25/23 04:17 Labs: Abnormal Lab Results - Last 24 Hours (Table) 09/25/23 09/25/23 09/26/23 Range/Units 17:04 20:39 06:04 POC Glucose (mg/dL) 316 H 342 H 265 H (70-110) mg/dL 09/26/23 Range/Units 11:28 POC Glucose (mg/dL) 372 H (70-110) mg/dL
[2023-09-27 06:06] LABS: Glucose,Whole Blood 176 mg/dL (70-110)
--- NOTE | 2023-09-27 08:25 | P.PN ---
Subjective Progress Note Date: 09/27/23 CHIEF COMPLAINT: GI bleed HISTORY OF PRESENT ILLNESS: Patient is status post EGD revealing antral gastrit is. No further dark stools reported. Patient denies any abdominal pain. She is tolerating diet. Last hgb 7.7 on 09/25/23 PHYSICAL EXAM: VITAL SIGNS: Reviewed. GENERAL: no acute distress. ABDOMEN: Soft. Nondistended. Nontender. ASSESSMENT: 1. Acute GI bleed with melanotic stools. Now resolved. Status post EGD revealing antral gastritis PLAN: -Continue PPI -Continue regular diet -Patient can be discharge from surgical standpoint -Patient awaiting insurance authorization for ECF placement Physician Systems Security Consultant note has been reviewed by physician. Signing provider agrees with the documented findings, assessment, and plan of care. Objective - Vital Signs Vital signs: Vital Signs Temp 98 F 09/27/23 07:45 Pulse 80 09/27/23 07:45 Resp 24 09/27/23 07:45 BP 131/72 09/27/23 07:45 Pulse Ox 93 L 09/27/23 07:45 FiO2 3 09/02/23 04:00 Intake & Output 09/26/23 09/27/23 09/27/23 18:59 06:59 18:59 Output Total 1 Balance -1 Weight 53 kg Output: Urine 1 Other: Voiding Method Toilet Toilet # Voids 2 2 # Bowel Movements 2 ABP, PAP, CO, CI - Last Documented Arterial Blood Pressure 125/73 - Labs CBC & Chem 7: 09/25/23 04:17 09/25/23 04:17 Labs: Abnormal Lab Results - Last 24 Hours (Table) 09/26/23 09/26/23 09/26/23 Range/Units 11:28 16:49 20:31 POC Glucose (mg/dL) 372 H 270 H 255 H (70-110) mg/dL 09/27/23 Range/Units 06:05 POC Glucose (mg/dL) 176 H (70-110) mg/dL
[2023-09-27 08:49] VITALS: BP 131/72; PULSE 80; RESP 24; TEMP 98
[2023-09-27 09:08] LABS: Basophils # (A) 0.06 X 10*3/uL (0.00-0.10); Basophils % (A) 0.7 %; Eosinophils # (A) 0.29 X 10*3/uL (0.04-0.35); Eosinophils % (A) 3.5 %; HCT 25.8 % (37.2-46.3); HGB 7.6 g/dL (12.0-15.0); Lymphocytes # (A) 0.73 X 10*3/uL (0.90-5.00); Lymphocytes % (A) 8.8 %; MCH 27.7 pg (27.0-32.0); MCHC 29.5 g/dL (32.0-37.0); MCV 94.2 FL (80.0-97.0); Mean Platelet Volume 10.9 FL (9.5-12.2); Monocytes # (A) 0.84 X 10*3/uL (0.20-1.00); Monocytes % (A) 10.1 %; NRBC Per 100 WBC 0 X 10*3/uL (0.00-0.01); Neutrophils # (A) 6.33 X 10*3/uL (1.80-7.70); Neutrophils % (A) 76.1 %; Platelet Count 192 X 10*3/uL (140-440); RBC 2.74 X 10*6/uL (4.10-5.20); RDW 17.7 % (11.5-14.5); WBC 8.32 X 10*3/uL (4.50-10.00)
[2023-09-27 09:29] LABS: BUN/Creat Ratio 26.64 Ratio (12.00-20.00); Blood Urea Nitrogen 74.6 mg/dL (9.0-27.0); Calcium 8.4 mg/dL (8.7-10.3); Chloride 103 mmol/L (96-109); Glucose 149 mg/dL (70-110); Potassium 6.3 mmol/L (3.5-5.5); Sodium 136 mmol/L (135-145)
--- NOTE | 2023-09-27 09:46 | P.DS ---
Providers Date of admission: 08/19/23 14:28 Expected date of discharge: 09/27/23 Attending physician: Juju Schneider Consults: 08/20/23 13:35 Consult Physician Routine Consulting Provider: Shawnee Subramanian Consult Reason/Comments: right heel wound Do you want consulting provider notified?: Yes 08/21/23 14:11 Consult Physician Routine Consulting Provider: Rodri Kent Consult Reason/Comments: subacute right ankle fracture Do you want consulting provider notified?: Yes 08/21/23 16:37 Consult Physician Routine Consulting Provider: Mateo Zambrano Consult Reason/Comments: MARYLOU Do you want consulting provider notified?: Yes 08/23/23 05:35 Consult Physician Stat Consulting Provider: Nas Langford Consult Reason/Comments: icu management Do you want consulting provider notified?: Already Contacted 08/23/23 09:36 Consult Physician Urgent Consulting Provider: Israel Dale Consult Reason/Comments: Removal of tunneled dialysis catheter Do you want consulting provider notified?: Yes 08/23/23 11:16 Consult Physician Routine Consulting Provider: Mainor Langford Consult Reason/Comments: unresponsive, cardiac arrest Do you want consulting provider notified?: Yes 09/11/23 14:54 Consult Physician Routine Consulting Provider: Boubacar Jaramillo Consult Reason/Comments: hallucinations, altered Do you want consulting provider notified?: Yes 09/20/23 12:50 Consult Physician Urgent Consulting Provider: Richard Zayas Consult Reason/Comments: new bradycardia Do you want consulting provider notified?: Already Contacted Primary care physician: [facility] Course: Final diagnosis Asystole/cardiopulmonary arrest x 2 with CPR/ROSC, unknown etiology Respiratory failure requiring intubation s/p extubation 08/25/2023 Concerns for chest wall cellulitis near the previous dialysis site, continued on daptomycin with ID following, will transition to oral Doxy to complete the course Large black stools, concern for GI bleed, ruled out, EGD showed antral gastritis Acute metabolic encephalopathy with concerns of anoxia, status postcardiac arrest Anemia, iron deficiency noted Congestive heart failure with systolic dysfunction acute on chronic exacerbation Acute hypoxic respiratory failure secondary to CHF Ischemic cardiomyopathy with improved EF Acute kidney injury secondary to ATN on chronic kidney disease stage III Urinary tract infection with E. coli Subacute fracture of the medial and lateral malleolus, orthopedics following with no plans of immediate surgical intervention at this time Right heel stage III pressure injury continue local wound care with aquacel ID following. 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 Patient will follow-up with Dr. Reeder in the outpatient setting upon discharge. Patient is to continue with doxycycline twice daily for the next 1 week and close outpatient follow-up with infectious disease, wound care center, nephrology, cardiology, pulmonary, orthopedics as scheduled. Total time taken is greater than 35 minutes. Hospital course This is a 58-year-old female who was recently admitted with increased shortness of breath found to be in CHF exacerbation along with increased pedal edema being closely monitored. Patient also had a right foot stage III-IV ulcer that was nonhealing and appear to be infected with infectious disease following. Patient was recently hospitalized and maintained on hemodialysis showing improvements in numbers and was continued on maximizing medical management. Patient follows with Dr. Mayen in the outpatient setting for this right foot and was continued on antibiotics. Patient will continue on oral doxycycline twice daily for 1 week to complete the course. Patient has had extremely prolonged hospitalization and had been on a number of antibiotics for quite some time. While on the unit patient experienced a cardiac event with cardiac arrest showing asystole and ACLS protocol was ongoing with ROSC obtained and patient was placed in the ICU on mechanical ventilation. Patient was in the ICU for quite some time and successfully extubated. Patient's mentation waxed and waned and continued with delirium in the ICU maintained on oxygen. Patient is now on 2 L and tolerating and is receiving occasional breathing treatments as needed. Patient was continued on IV Lasix and has been transition to Bumex along with other cardiac medications and cardiology has cleared the patient recommending outpatient follow-up. Recommend repeat labs of CBC, CMP, magnesium in 2 to 3 days to monitor kidney functions and electrolytes. Patient mentation has improved and was evaluated by psych making adjustments to medications and strongly encouraged against narcotic medications. Patient is to continue with nonweightbearing of that right lower extremity until evaluated again by orthopedics and continue with local wound care as mentioned previously. Patient to follow-up at the wound care center along with podiatry outpatient. Patient has been cleared by consultations for discharge to [facility]. Insurance authorization was obtained and patient will be going to [facility] today. Family involved in her care and were apparently working on obtaining guardianship to help her with medical decisions. Please refer to other consultation notes for further HPI. Currently no reports of chest pain, shortness of breath, or palpitations. Patient is afebrile. No reports of nausea or vomiting and patient is tolerating diet. Patient will be going to [facility] today. Guarded prognosis and high risk for readmissions given patient's significant comorbidities. Physical exam: Gen: This is a 58-year-old female who is awake, alert and oriented x 2-3, confused at time which is baseline, well-developed, elderly appearing, ill- appearing HEENT: Head is atraumatic, normocephalic. Pupils equal, round. Sclerae is anicteric. NECK: Supple. No JVD. No lymphadenopathy. No thyromegaly. LUNGS: Diminished breath sounds bilaterally otherwise clear to auscultation. No wheezes or rhonchi. No intercostal retractions. HEART: S1, S2 are muffled ABDOMEN: Soft. Thin bowel sounds are present. No masses. No tenderness. EXTREMITIES: No pedal edema. No calf tenderness. Right lower extremity dres sing and partial casting noted NEUROLOGICAL: Patient is awake, alert and oriented x 2-3. Cranial nerves 2 through 12 are grossly intact. Diffusely weak Please refer to medication reconciliation sheet for a list of medications. The impression and plan of care has been dictated by Mouna Rowley, Nurse Practitioner as directed. Dr. Wyatt MD I have performed a history and examination and MDM of this patient, discussed the same with the dictator, and agree with the dictator's assessment and plan as written ,documented as a scribe. Based on total visit time, I have performed more than 50% of the visit. Patient Condition at Discharge: Fair Plan - Discharge Summary Discharge Rx Participant: Yes New Discharge Prescriptions: New hydrALAZINE HCL [Apresoline] 25 mg PO TID tab Bumetanide [BUMEX] 1 mg PO DAILY tab Fluticasone Nasal Roxton [Flonase Nasal Roxton] 2 spray EA NOSTRIL DAILY ml Folic Acid 1 mg PO DAILY tab Multivitamins, Thera [Multivitamin (formulary)] 1 each PO DAILY tab amLODIPine [Norvasc] 10 mg PO DAILY tab rOPINIRole HCL [Requip] 1 mg PO HS PRN tab PRN Reason: restless legs Metoprolol Succinate (ER) [Toprol XL] 12.5 mg PO DAILY tab Acetaminophen Tab [Tylenol] 650 mg PO Q6HR PRN tab PRN Reason: Fever And/ Or Pain Spironolactone [Aldactone] 12.5 mg PO DAILY tab Darbepoetin Frantz [Aranesp] 40 mcg SQ Q7D each Docusate [Colace] 100 mg PO BID cap Ipratropium-Albuterol Nebulize [Duoneb 0.5 mg-3 mg/3 ml Soln] 3 ml INHALATION RT-QID PRN each PRN Reason: Dyspnea Isosorbide Mononitrate ER [Imdur] 30 mg PO DAILY tab Lidocaine 4% Patch 1 patch TOPICAL DAILY patch Melatonin 5 mg PO HS tab Clopidogrel [Plavix] 75 mg PO DAILY tab fluPHENAZine [Prolixin] 5 mg PO Q6HR PRN tab PRN Reason: Agitation risperiDONE ODT [RisperDAL M-TAB] 2 mg PO BID tab Doxycycline [Vibramycin] 100 mg PO BID 7 Days #14 cap Thiamine [Vitamin B-1] 100 mg PO DAILY tab Continue rOPINIRole HCL [Requip] 1 mg PO HS Aspirin 81 mg PO DAILY 90 Days #90 tab INSULIN ASPART (NovoLOG) [NovoLOG (formulary)] 10 unit SQ AC-TID Discontinued Ezetimibe [Zetia] 10 mg PO DAILY Multivitamins, Thera [Multivitamin (formulary)] 1 tab PO DAILY Acetaminophen Tab [Tylenol] 500 mg PO Q6HR PRN tab PRN Reason: Fever And/ Or Pain Clopidogrel [Plavix] 75 mg PO DAILY 90 Days #90 tab Budesonide [Pulmicort] 0.5 mg INHALATION RT-BID PRN PRN Reason: Shortness Of Breath hydrALAZINE HCL [Apresoline] 25 mg PO TID Spironolactone [Aldactone] 25 mg PO DAILY lisinopriL [Zestril] 10 mg PO DAILY Diclofenac Sodium [Voltaren] 75 mg PO BID Dapagliflozin Propanediol [Farxiga] 5 mg PO DAILY Torsemide [Demadex] 40 mg PO DAILY 90 Days #90 tab Atorvastatin [Lipitor] 40 mg PO DAILY 90 Days #90 Isosorbide Mononitrate ER [Imdur] 15 mg PO DAILY Gabapentin 600 mg PO QID Discharge Medication List rOPINIRole HCL [Requip] 1 mg PO HS 04/17/23 [History] Aspirin 81 mg PO DAILY 90 Days #90 tab 06/25/23 [Rx] INSULIN ASPART (NovoLOG) [NovoLOG (formulary)] 10 unit SQ AC-TID 08/19/23 [History] Acetaminophen Tab [Tylenol] 650 mg PO Q6HR PRN tab 09/27/23 [Rx] Bumetanide [BUMEX] 1 mg PO DAILY tab 09/27/23 [Rx] Clopidogrel [Plavix] 75 mg PO DAILY tab 09/27/23 [Rx] Darbepoetin Frantz [Aranesp] 40 mcg SQ Q7D each 09/27/23 [Rx] Docusate [Colace] 100 mg PO BID cap 09/27/23 [Rx] Doxycycline [Vibramycin] 100 mg PO BID 7 Days #14 cap 09/27/23 [Rx] Fluticasone Nasal Roxton [Flonase Nasal Roxton] 2 spray EA NOSTRIL DAILY ml 09/27/23 [Rx] Folic Acid 1 mg PO DAILY tab 09/27/23 [Rx] Ipratropium-Albuterol Nebulize [Duoneb 0.5 mg-3 mg/3 ml Soln] 3 ml INHALATION RT-QID PRN each 09/27/23 [Rx] Isosorbide Mononitrate ER [Imdur] 30 mg PO DAILY tab 09/27/23 [Rx] Lidocaine 4% Patch 1 patch TOPICAL DAILY patch 09/27/23 [Rx] Melatonin 5 mg PO HS tab 09/27/23 [Rx] Metoprolol Succinate (ER) [Toprol XL] 12.5 mg PO DAILY tab 09/27/23 [Rx] Multivitamins, Thera [Multivitamin (formulary)] 1 each PO DAILY tab 09/27/23 [Rx] Spironolactone [Aldactone] 12.5 mg PO DAILY tab 09/27/23 [Rx] Thiamine [Vitamin B-1] 100 mg PO DAILY tab 09/27/23 [Rx] amLODIPine [Norvasc] 10 mg PO DAILY tab 09/27/23 [Rx] fluPHENAZine [Prolixin] 5 mg PO Q6HR PRN tab 09/27/23 [Rx] hydrALAZINE HCL [Apresoline] 25 mg PO TID tab 09/27/23 [Rx] rOPINIRole HCL [Requip] 1 mg PO HS PRN tab 09/27/23 [Rx] risperiDONE ODT [RisperDAL M-TAB] 2 mg PO BID tab 09/27/23 [Rx] Follow up Appointment(s)/Referral(s): Fadi Nolen DO [REFERRING] - 1 Week Francisco Javier Valencia MD [STAFF PHYSICIAN] - 1 Week Darrin Petersen MD [STAFF PHYSICIAN] - 1 Week Janey Nunez MD [STAFF PHYSICIAN] - 1 Week Activity/Diet/Wound Care/Special Instructions: Patient is going to [facility] [email or web address] Activity as tolerated Follow-up with cardiology outpatient Follow-up with pulmonary outpatient Follow-up with nephrology outpatient Follow-up with primary care provider on discharge Continue monitoring Accu-Cheks before meals and at bedtime Patient is to be nonweightbearing to the right lower extremity until follow-up with orthopedics, weightbearing as tolerated on the left lower extremity Continue with doxycycline twice daily for 7 days to complete the course Patient will need outpatient follow-up with orthopedics as well as infectious disease in 1 to 2 weeks regarding right lower extremity Repeat labs CBC, CMP, magnesium 2 to 3 days Continue with consistent carb diet Continue with Aquacel silver to the right heel wound every 2 days or if becomes soiled Discharge Disposition: TRANSFER TO SNF/ECF
--- NOTE | 2023-09-27 10:01 | P.PN ---
Subjective Patient is seen for follow-up for acute kidney injury. patient remains confused, although mentation is somewhat improved. serum creatinine increased to 2.8 mg/dL today. Patient is currently being diuresed. Urine output not accurately charted. Hays catheter will be replaced. Potassium was 6.3 but blood sugar is also elevated. Objective - Vital Signs Vital signs: Vital Signs Temp 98 F 09/27/23 07:45 Pulse 80 09/27/23 07:45 Resp 24 09/27/23 07:45 BP 131/72 09/27/23 07:45 Pulse Ox 92 L 09/27/23 08:42 FiO2 3 09/02/23 04:00 Intake & Output 09/26/23 09/27/23 09/27/23 18:59 06:59 18:59 Output Total 1 Balance -1 Weight 53 kg Output: Urine 1 Other: Voiding Method Toilet Toilet # Voids 2 2 # Bowel Movements 2 ABP, PAP, CO, CI - Last Documented Arterial Blood Pressure 125/73 - Exam Patient is awake. She is comfortable. Confused Examination of the heart S1 and S2 Examination of the lungs bilateral breath sounds are heard Abdomen is soft nontender Examination of lower extremities shows 1+ edema. Right leg is in cast - Labs CBC & Chem 7: 09/27/23 04:35 09/27/23 04:35 Labs: Abnormal Lab Results - Last 24 Hours (Table) 09/26/23 09/26/23 09/26/23 Range/Units 11:28 16:49 20:31 RBC (4.10-5.20) X 10*6/uL Hgb (12.0-15.0) g/dL Hct (37.2-46.3) % MCHC (32.0-37.0) g/dL RDW (11.5-14.5) % Immature Gran # (0.00-0.04) X 10*3/uL Lymphocytes # (0.90-5.00) X 10*3/uL Potassium (3.5-5.5) mmol/L BUN (9.0-27.0) mg/dL Creatinine (0.6-1.5) mg/dL Est GFR (CKD-EPI) (>=60) BUN/Creatinine Ratio (12.00-20.00) Ratio Glucose (70-110) mg/dL POC Glucose (mg/dL) 372 H 270 H 255 H (70-110) mg/dL Calcium (8.7-10.3) mg/dL 09/27/23 09/27/23 09/27/23 Range/Units 04:35 04:35 06:05 RBC 2.74 L (4.10-5.20) X 10*6/uL Hgb 7.6 L (12.0-15.0) g/dL Hct 25.8 L (37.2-46.3) % MCHC 29.5 L (32.0-37.0) g/dL RDW 17.7 H (11.5-14.5) % Immature Gran # 0.07 H (0.00-0.04) X 10*3/uL Lymphocytes # 0.73 L (0.90-5.00) X 10*3/uL Potassium 6.3 A* (3.5-5.5) mmol/L BUN 74.6 H (9.0-27.0) mg/dL Creatinine 2.8 H (0.6-1.5) mg/dL Est GFR (CKD-EPI) 19 L (>=60) BUN/Creatinine Ratio 26.64 H (12.00-20.00) Ratio Glucose 149 H (70-110) mg/dL POC Glucose (mg/dL) 176 H (70-110) mg/dL Calcium 8.4 L (8.7-10.3) mg/dL Assessment and Plan Assessment: 1. Acute kidney injury secondary to ATN secondary to cardiorenal syndrome and cardiac arrest. Creatinine increased to 2.8 today. Patient was on hemodialysis in the past with last treatment being July 02, 2023. Dialysis catheter it is n ow removed. Renal US no hydronephrosis. continue with diuretics. 2. Volume overload. 3. Acute on chronic diastolic CHF. 4. Diabetes mellitus. 5. Right foot wound. 6. Coronary disease with cardiac stenting. 7. Status post PEA arrest with concern for anoxic encephalopathy. 8. Septic Shock-urine culture is growing E. coli. Catheter tip culture is growing corynebacterium, blood culture negative so far. 9. Metabolic acidosis, nongap, improved 10. Hypernatremia, status post D5W, improved 11. Hyperkalemia associated with acute kidney injury and hyperglycemia. Possible urine retention. Agree with reinserting Hays catheter. Need to control blood sugars and repeat labs in 1-2 days post discharge. Continue with loop diuretics and avoid constipation. Plan: continue with Bumex. Control blood sugars Okay to reinsert Hays catheter and repeat labs in 1-2 days post discharge. Repeat labs in a.m. Patient will need follow-up as outpatient postdischarge.
[2023-09-27] MEDS: SODIUM ZIRCONIUM CYCLOSILICATE 10 GM PACKET PO ONE (10:49)
[2023-09-27] MEDS: INSULIN DETEMIR (LEVEMIR) 100 UNIT/ML SYR SQ SCH (10:49)
[2023-09-27 11:44] LABS: Glucose,Whole Blood 303 mg/dL (70-110)
--- NOTE | 2023-09-27 12:11 | XR ---
EXAMINATION TYPE: XR chest 1V portable DATE OF EXAM: 09/27/2023 COMPARISON: 09/21/2023 HISTORY: Shortness of breath TECHNIQUE: Single frontal view of the chest is obtained. FINDINGS: The heart is enlarged and there is bilateral tiny pleural effusion with basilar consolidat ion. Interstitial pattern seen with thickening or a tiny amount of fluid in the minor fissure. No pne umothorax. Atherosclerotic change aorta. Diffuse osteopenia. Mild AC joint arthropathy. Mild degenera tive change of the spine. IMPRESSION: Favor findings represent mild CHF underlying infiltrate left lung base not excluded. Cor relate clinically.
--- NOTE | 2023-09-27 13:31 | P.PN ---
Subjective Progress Note Date: 09/27/23 The patient is seen today September 24, 2023 in follow-up on the regular medical floor. She is currently sitting up in a chair. Awake and alert in no acute distress. She is maintaining O2 saturations in the 90s on 3 L/min per nasal cannula. Afebrile. Hemodynamically stable. collection correspondent remains at the [facility]. She is status post 2 units of packed red blood cells this admission. Current hemoglobin 7.8. White count 8.9. Platelets 217. Sodium 138. Potassium 5.4. Bicarb 24. BUN 55. Creatinine 1.8. Glucose 122. She remains on daptomycin per ID services. Continued on bronchodilators. Remains on IV diuretics. Currently in a -1.8 L balance. The patient is seen today September 25, 2023 in follow-up on the regular medical floor. She is currently resting comfortably in bed. Awake and alert in no acute distress. She is maintaining good O2 saturations in the 90s on 3 L/min per nasal cannula. White count 7.9. Stool 3. Sodium 139. Potassium 5.2. Bicarb 24. BUN 57. Creatinine 1.9. Glucose 77. She remains on daptomycin. Continued on bronchodilators. Remains on diuretics. Her Hays catheter has been removed. No accurate I & O. The patient is seen today September 26, 2023 in follow-up on the regular medical floor. She is currently sitting up in a chair at the bedside. Awake and alert in no acute distress. Maintaining good O2 saturations in the 90s on room air. She is afebrile. Hemodynamically stable. Glucose 265. She remains on bronchodilators. Remains on oral diuretics. Continued on daptomycin per ID services. The patient is seen today September 27, 2023 in follow-up on the regular medical floor. She is sitting up in a chair. Awake and alert in no acute distress. She denies any worsening shortness of breath, cough or congestion. Maintaining good O2 saturations in the 90s on room air. White count 8.3. Hemoglobin 7.6. Platelets 192. Sodium 136. Potassium 6.3. Bicarb 23. BUN 75. Creatinine 2.8. Glucose 149. She remains on oral diuretics. Continued on doxycycline. Completed back daptomycin. Receiving Lokelma for hyperkalemia. Objective - Vital Signs Vital signs: Vital Signs Temp 98 F 09/27/23 07:45 Pulse 80 09/27/23 07:45 Resp 24 09/27/23 07:45 BP 131/72 09/27/23 07:45 Pulse Ox 92 L 09/27/23 08:42 FiO2 3 09/02/23 04:00 Intake & Output 09/26/23 09/27/23 09/27/23 18:59 06:59 18:59 Intake Total 240 Output Total 1 Balance -1 240 Weight 53 kg Intake: Oral 240 Output: Urine 1 Other: Voiding Method Toilet Toilet Toilet # Voids 2 2 # Bowel Movements 2 1 ABP, PAP, CO, CI - Last Documented Arterial Blood Pressure 125/73 - Exam GENERAL EXAM: Alert, 58-year-old female, up in a chair, in no apparent distress. HEAD: Normocephalic. EYES: Normal reaction of pupils, equal size. NOSE: Clear with pink turbinates. THROAT: No erythema or exudates. NECK: No masses, no JVD. CHEST: No chest wall deformity. LUNGS: Equal air entry with no crackles, wheeze, rhonchi or dullness. On room air. CVS: S1 and S2 normal with no audible murmur, regular rhythm. ABDOMEN: No hepatosplenomegaly, normal bowel sounds, no guarding or rigidity. SPINE: No scoliosis or deformity SKIN: No rashes CENTRAL NERVOUS SYSTEM: No focal deficits, tone is normal in all 4 extremities. EXTREMITIES: There is no peripheral edema. No clubbing, no cyanosis. Peripheral pulses are intact. - Labs CBC & Chem 7: 09/27/23 04:35 09/27/23 04:35 Labs: Abnormal Lab Results - Last 24 Hours (Table) 09/26/23 09/26/23 09/27/23 Range/Units 16:49 20:31 04:35 RBC 2.74 L (4.10-5.20) X 10*6/uL Hgb 7.6 L (12.0-15.0) g/dL Hct 25.8 L (37.2-46.3) % MCHC 29.5 L (32.0-37.0) g/dL RDW 17.7 H (11.5-14.5) % Immature Gran # 0.07 H (0.00-0.04) X 10*3/uL Lymphocytes # 0.73 L (0.90-5.00) X 10*3/uL Potassium (3.5-5.5) mmol/L BUN (9.0-27.0) mg/dL Creatinine (0.6-1.5) mg/dL Est GFR (CKD-EPI) (>=60) BUN/Creatinine Ratio (12.00-20.00) Ratio Glucose (70-110) mg/dL POC Glucose (mg/dL) 270 H 255 H (70-110) mg/dL Calcium (8.7-10.3) mg/dL 09/27/23 09/27/23 09/27/23 Range/Units 04:35 06:05 11:39 RBC (4.10-5.20) X 10*6/uL Hgb (12.0-15.0) g/dL Hct (37.2-46.3) % MCHC (32.0-37.0) g/dL RDW (11.5-14.5) % Immature Gran # (0.00-0.04) X 10*3/uL Lymphocytes # (0.90-5.00) X 10*3/uL Potassium 6.3 A* (3.5-5.5) mmol/L BUN 74.6 H (9.0-27.0) mg/dL Creatinine 2.8 H (0.6-1.5) mg/dL Est GFR (CKD-EPI) 19 L (>=60) BUN/Creatinine Ratio 26.64 H (12.00-20.00) Ratio Glucose 149 H (70-110) mg/dL POC Glucose (mg/dL) 176 H 303 H (70-110) mg/dL Calcium 8.4 L (8.7-10.3) mg/dL Assessment and Plan Assessment: Cardiopulmonary arrest, x 2, with cardiopulmonary resuscitation, and return of spontaneous circulation on 08/23/23 Acute hypoxic respiratory failure, post cardiac arrest. S/P intubation, and mechanical ventilation, secondary to cardiopulmonary arrest, August 23, 2023. She was extubated on 08/25/23. Currently on room air Encephalopathy, multifactorial, suspect post anoxic encephalopathy and cardiac arrest. Currently on risperidone and Requip for ongoing restlessness and encephalopathy Anemia status post EGD on September 16, 2023 with mild gastritis. No active bleeding. Current hemoglobin 7.6 History of congestive heart failure (HFPEF) Coronary artery disease/cardiomyopathy and the patient is post non-ST segment elevation myocardial infarction Stage III chronic kidney disease Right heel pressure ulcer, stage III Subacute fracture of the medial and lateral malleolus History of hypertension History of hyperlipidemia History of type 2 diabetes mellitus History of severe pulmonary hypertension History of COPD History of peripheral neuropathy Chest wall pain related to CPR Plan: The patient was seen and evaluated Currently stable and on room air Labs and medications reviewed Received Tarik for hyperkalemia Plan is for [facility] at discharge This patient was seen independently by the pulmonary nurse practitioner addressing pulmonary issues I have personally seen and examined the patient, performed the documentation and the assessment and plan as written. Number of minutes spent on the visit: 23.
--- NOTE | 2023-09-27 16:29 | P.PN ---
Subjective Progress Note Date: 09/27/23 Principal diagnosis: Reason for follow-up is right heel diabetic foot ulcer Patient is a 57-year-old female with a past medical history significant for diabetes mellitus hypertension hyperlipidemia history of renal insufficiency requiring dialysis currently not on dialysis and the patient also have a chronic nonhealing wound to the right heel area, present to the hospital with increasing shortness of breath and swelling concerning for fluid overload.Patient did have a cardiac arrest around 4 AM 08/23/2023 with the patient went into asystole got resuscitated intubated and transferred to the ICU subsequently have another cardiac arrest with PEA rhythm not resuscitated. On today's evaluation that is 09/27/2023, the patient continues to be afebrile, the patient is on room air and breathing comfortably, the Pt denies having any chest pain or cough, the patient denies having any abdominal pain no vomiting or any diarrhea has been reported by the nursing staff, patient mention feeling better. Patient white on 8.32, creatinine is 2.8 Objective - Vital Signs Vital signs: Vital Signs Temp 98 F 09/27/23 07:45 Pulse 80 09/27/23 07:45 Resp 24 09/27/23 07:45 BP 131/72 09/27/23 07:45 Pulse Ox 92 L 09/27/23 08:42 FiO2 3 09/02/23 04:00 Intake & Output 09/26/23 09/27/23 09/27/23 18:59 06:59 18:59 Output Total 1 Balance -1 Weight 53 kg Output: Urine 1 Other: Voiding Method Toilet Toilet Toilet # Voids 2 2 # Bowel Movements 2 1 ABP, PAP, CO, CI - Last Documented Arterial Blood Pressure 125/73 - Exam GENERAL DESCRIPTION: Middle-aged female lying in bed in no distress RESPIRATORY SYSTEM: Unlabored breathing , decreased breath sounds at bases HEART: S1 S2 regular rate and rhythm , right chest wall wound is drying out no drainage ABDOMEN: Soft , no tenderness EXTREMITIES: Right heel wound is currently dressed no drainage - Labs CBC & Chem 7: 09/27/23 04:35 09/27/23 04:35 Labs: Abnormal Lab Results - Last 24 Hours (Table) 09/26/23 09/26/23 09/27/23 Range/Units 16:49 20:31 04:35 RBC 2.74 L (4.10-5.20) X 10*6/uL Hgb 7.6 L (12.0-15.0) g/dL Hct 25.8 L (37.2-46.3) % MCHC 29.5 L (32.0-37.0) g/dL RDW 17.7 H (11.5-14.5) % Immature Gran # 0.07 H (0.00-0.04) X 10*3/uL Lymphocytes # 0.73 L (0.90-5.00) X 10*3/uL Potassium (3.5-5.5) mmol/L BUN (9.0-27.0) mg/dL Creatinine (0.6-1.5) mg/dL Est GFR (CKD-EPI) (>=60) BUN/Creatinine Ratio (12.00-20.00) Ratio Glucose (70-110) mg/dL POC Glucose (mg/dL) 270 H 255 H (70-110) mg/dL Calcium (8.7-10.3) mg/dL 09/27/23 09/27/23 09/27/23 Range/Units 04:35 06:05 11:39 RBC (4.10-5.20) X 10*6/uL Hgb (12.0-15.0) g/dL Hct (37.2-46.3) % MCHC (32.0-37.0) g/dL RDW (11.5-14.5) % Immature Gran # (0.00-0.04) X 10*3/uL Lymphocytes # (0.90-5.00) X 10*3/uL Potassium 6.3 A* (3.5-5.5) mmol/L BUN 74.6 H (9.0-27.0) mg/dL Creatinine 2.8 H (0.6-1.5) mg/dL Est GFR (CKD-EPI) 19 L (>=60) BUN/Creatinine Ratio 26.64 H (12.00-20.00) Ratio Glucose 149 H (70-110) mg/dL POC Glucose (mg/dL) 176 H 303 H (70-110) mg/dL Calcium 8.4 L (8.7-10.3) mg/dL Assessment and Plan (1) Pressure ulcer of right heel, stage 3 Status: Acute Code(s): L89.613 - PRESSURE ULCER OF RIGHT HEEL, STAGE 3 SNOMED Code(s): 71039598078790 (2) Type 2 diabetes mellitus with foot ulcer Status: Acute Code(s): E11.621 - TYPE 2 DIABETES MELLITUS WITH FOOT ULCER; L97.509 - NON-PRESSURE CHRONIC ULCER OTH PRT UNSP FOOT W UNSP SEVERITY SNOMED Code(s): 579340540 (3) UTI (urinary tract infection) Status: Acute Code(s): N39.0 - URINARY TRACT INFECTION, SITE NOT SPECIFIED SNOMED Code(s): 52907270 (4) Aspiration pneumonia Status: Acute Code(s): J69.0 - PNEUMONITIS DUE TO INHALATION OF FOOD AND VOMIT SNOMED Code(s): 222292019 Plan: 1patient with chronic nonhealing wound to the right heel area which has been there for a couple of months now patient overall wound base looks clean with no slough tissue in the wound base, patient to continue local wound care with Aquacel silver dressing change every 48 hours 2-patient did have cellulitis to the right chest wall site of previous dialysis catheter insertion, for the patient has received adequate IV daptomycin plan is for a 7-day course of oral doxycycline on discharge Dictation was produced using [employer] dictation software. please excuse any grammatical, word or spelling errors. Time with Patient: Less than 30
--- NOTE | 2023-09-30 14:14 | CDI ---
Documentation Clarification Form Date: 09/30/2023 02:05:13 PM From: Reshma Soriano Phone: Admit Date: 08/19/2023 02:28:00 PM Patient Name: Chelle Lin Visit Number: [id number] Discharge Date: 09/27/2023 02:28:00 PM ATTENTION: The Clinical Documentation Specialists (CDI) and [facility] Coding Staff appreciate your assistance in clarifying documentation. Please respond to the clarification below the line at the bottom and electronically sign. The CDI & [facility] Coding staff will review the response and follow-up if needed. Please note: Queries are made part of the Legal Health Record. If you have any questions, please contact the author of this message via ITS. Dr. Juju Schneider Cellulitis is documented Consult note 08/19. Additional clarification regarding the type of cellulitis is requested. History/risk factors: 58yo F, CHF, HTN, UTI w E Coli, met enceph, PEA, AHRF, GAGE, DM w a1c 12.1, Peripheral neuropath, & CKDIII, ICM, ATN, COPD, chronic antralgastritis w GIB, Fx medial and lateral malleolus, Right heel stage III pressure injury, genitallesions, HLD, PHTN, Clinical Indicators: patient with chronic nonhealingwoundto the right heel area which has been there for a couple of months (7mo) now patient overallwoundbase looks cleanwith no slough tissue in thewoundis notpulling out thewoundmorelikely apressure ulcer stage IIIwith evidence of any secondarycellulitis Treatment: localwoundcare with Aquacel silverpackingof thewoundand keep the area of thepressure. Noneed for systemic antibiotictherapy Please clarify the etiology of the cellulitis, if known: [ ] Cellulitis is a diabetic skin complication [ ] Cellulitis is not a diabetic skin complication [ ] Other, please specify: [ ] Unable to determine (Template Last Revised: April 2022) MTDD
--- NOTE | 2023-09-30 18:25 | CDI ---
Documentation Clarification Form Date: 09/30/2023 06:07:55 PM From: Reshma Soriano Phone: Admit Date: 08/19/2023 02:28:00 PM Patient Name: Chelle Lin Visit Number: [id number] Discharge Date: 09/27/2023 02:28:00 PM ATTENTION: The Clinical Documentation Specialists (CDI) and [facility] Coding Staff appreciate your assistance in clarifying documentation. Please respond to the clarification below the line at the bottom and electronically sign. The CDI & [facility] Coding staff will review the response and follow-up if needed. Please note: Queries are made part of the Legal Health Record. If you have any questions, please contact the author of this message via ITS. Dr. Juju Schneider There is documentation of: Right heeldiabetic foot ulcer per Progress Note 08/20 Pressure ulcer of right heel, stage 3 Progress Note 08/20 Pressure ulcer of right heel, stage 2 Medical Consult Note 08/21 Patient has right plantar surfaceulceron the posterior foot stage III-IV per H&P Clarification of specificity regarding the etiology and severity of the wound is requested. Patient history/risk factors: 58yo F,CHF,HTN,UTI w E Coli, met enceph,PEA,AHRF, GAGE,NIDDMw A1C 12.1, peripheral neuropathy,CKDIII, ICM,ATN,COPD,chronic antralgastritisw GIB,Fxmedial and lateral malleolus,right heel nonhealing ulcer, genitallesions,HLD,PHTN, sepsis w shock Clinical Indicators: with areas ofnecrotictissue; base looks cleanwith no slough tissue in thewoundbase Treatment: localwoundcare with Aquacel silverpackingof thewoundand keep the area of thepressure. Noneed for systemic antibiotictherapy; patient to continue localwoundcare with Aquacel silverdressing changeevery 48 hours Please clarify the etiology and severity of the wound: Etiology: [ ] Non-pressure chronic ulcer due to diabetes [ x ] Pressure ulcer [ ] Other, Please specify [ ] Unable to determine Severity: [ ] With fat layer exposed [ x ] With necrosis of muscle [ ] Other, Please specify [ ] Unable to determine (Template Last Revised: June 2020) MTDD
--- NOTE | 2023-09-30 18:47 | CDI ---
Documentation Clarification Form Date: 09/30/2023 06:25:00 PM From: Reshma Soriano Phone: Admit Date: 08/19/2023 02:28:00 PM Patient Name: Chelle Lin Visit Number: [id number] Discharge Date: 09/27/2023 02:28:00 PM ATTENTION: The Clinical Documentation Specialists (CDI) and [facility] Coding Staff appreciate your assistance in clarifying documentation. Please respond to the clarification below the line at the bottom and electronically sign. The CDI & [facility] Coding staff will review the response and follow-up if needed. Please note: Queries are made part of the Legal Health Record. If you have any questions, please contact the author of this message via ITS. Dr. Kemal Givens Your patient has the documented diagnosis of: Congestive heart failure exacerbation with {systolic} reduced EF per H&P Acute on chronic diastolic CHF per Consult 08/21 Clarification regarding the type of CHF is requested. History/Risk Factors: 58yo F, CHF, HTN, UTI w E Coli, met enceph, PEA, AHRF, GAGE, NIDDM w A1C 12.1, peripheral neuropathy, CKDIII, ICM, ATN, COPD, chronic antral gastritis w GIB, Fx medial and lateral malleolus, right heel nonhealing ulcer, genital lesions, HLD, PHTN, sepsis w shock Clinical Indicators: VS/Pulse OX: 87-98 BNP: 74275 Echocardiogram Results: LVH with preserved systolic function. Increased right ventricular systolicpressures 08/19 08/22 ReducedLV systolic function EF30 to 35% 08/25 Limitedechocardiogramfor ejection fraction. Normal LV systolic function Chest X Ray: Heart mildlyenlarged. Diffuse interstitialopacityis present. Traceeffusionson the lateral view. 08/18 Treatment: Started on IV Lasix. Remains on farxiga. Pt had improved EF of 60-65% and was not started on entresto at this time. In your professional opinion, can you please clarify the type of CHF if known? [ xx ] Unable to determine (Template Last Revised: May 2020) Please contact admitting physician for clarification MTDD
--- NOTE | 2023-10-03 20:50 | CDI ---
Documentation Clarification Form Date: 10/03/2023 08:45:37 PM From: Reshma Soriano Phone: Admit Date: 08/19/2023 02:28:00 PM Patient Name: Chelle Lin Visit Number: [id number] Discharge Date: 09/27/2023 02:28:00 PM ATTENTION: The Clinical Documentation Specialists (CDI) and [facility] Coding Staff appreciate your assistance in clarifying documentation. Please respond to the clarification below the line at the bottom and electronically sign. The CDI & [facility] Coding staff will review the response and follow-up if needed. Please note: Queries are made part of the Legal Health Record. If you have any questions, please contact the author of this message via ITS. Dr. Juju Schneider Your patient has the documented diagnosis of: Congestive heart failureexacerbation with {systolic}reducedEF per H P Acute on chronic diastolic CHFper Consult 08/21 Clarification regarding the type ofCHFis requested. History/Risk Factors: 58yo F,CHF,HTN,UTI w E Coli, met enceph,PEA,AHRF, GAGE,NIDDMw A1C 12. 1,peripheral neuropathy,CKDIII, ICM,ATN,COPD,chronic antral gastritisw GIB,Fxmedial and lateral malleolus, right heel nonhealing ulcer, genitallesions,HLD,PHTN,sepsiswshock Clinical Indicators: VS/Pulse OX: 87-98 BNP: 12154 EchocardiogramResults: LVH with preserved systolic function. Increased right ventricular systolicpressures08/19 08/22ReducedLV systolic function EF30 to 35% 08/25 Limitedechocardiogramfor ejection fraction. Normal LV systolic function Chest X Ray: Heart mildlyenlarged. Diffuse interstitialopacityis present. Traceeffusionson the lateral view. 08/18 Treatment: Started on IV Lasix. Remains on farxiga. Pt had improved EF of 60-65% and was not started on entresto at this time. In your professional opinion, can you please clarify the type ofCHFif known? [ ] Acute on Chronic Systolic Heart Failure (reduced EF) [ x ] Acute on Chronic Diastolic Heart Failure (preserved EF) [ ] Acute on Chronic Heart Failure Systolic & Diastolic Heart Failure [ ] Other, please specify [ ] Unable to determine (Template LastRevised: May 2020) MTDD
== END 2023-09-27 14:28 | DRG 291 ==
LOC: EC 12:07 → 4SSUR 14:28 → OBSVTOIN 14:28 → 4SSUR 17:21 → 1SOBS 08-20 14:35 → 4SSUR 08-21 16:55 → 2SICU 08-23 05:03 → 3SCARD 09-07 14:38 → 4SSUR 09-17 00:15 → 3SCARD 09-18 21:09 → 4SSUR 09-22 11:45
PROVIDERS: ADMIT Hospitalist; ATTEND Hospitalist
PROC: 0BH18EZ Insertion of Endotracheal Airway into Trachea, Via Natural or Artificial Opening Endoscopic (ICD-10-PCS; 2023-08-23)
PROC: 5A1945Z Respiratory Ventilation, 24-96 Consecutive Hours (ICD-10-PCS; 2023-08-23)
PROC: 5A12012 Performance of Cardiac Output, Single, Manual (ICD-10-PCS; 2023-08-23)
PROC: 04HY32Z Insertion of Monitoring Device into Lower Artery, Percutaneous Approach (ICD-10-PCS; 2023-08-23)
PROC: 4A133B1 Monitoring of Arterial Pressure, Peripheral, Percutaneous Approach (ICD-10-PCS; 2023-08-23)
PROC: 4A133J1 Monitoring of Arterial Pulse, Peripheral, Percutaneous Approach (ICD-10-PCS; 2023-08-23)
PROC: 3E043XZ Introduction of Vasopressor into Central Vein, Percutaneous Approach (ICD-10-PCS; 2023-08-23)
PROC: 02HV33Z Insertion of Infusion Device into Superior Vena Cava, Percutaneous Approach (ICD-10-PCS; 2023-08-23)
PROC: 02PY33Z Removal of Infusion Device from Great Vessel, Percutaneous Approach (ICD-10-PCS; principal; 2023-08-24)
PROC: 0DB78ZX Excision of Stomach, Pylorus, Via Natural or Artificial Opening Endoscopic, Diagnostic (ICD-10-PCS; 2023-09-16)
DX: I13.0 Hypertensive heart and chronic kidney disease with heart failure and stage 1 through stage 4 chronic kidney disease, or unspecified chronic kidney disease (principal); A41.51 Sepsis due to Escherichia coli [E. coli]; J96.01 Acute respiratory failure with hypoxia; N17.0 Acute kidney failure with tubular necrosis; R65.21 Severe sepsis with septic shock; J69.0 Pneumonitis due to inhalation of food and vomit; G93.41 Metabolic encephalopathy; L89.614 Pressure ulcer of right heel, stage 4; I46.2 Cardiac arrest due to underlying cardiac condition; I50.33 Acute on chronic diastolic (congestive) heart failure; K29.51 Unspecified chronic gastritis with bleeding; K72.00 Acute and subacute hepatic failure without coma; G93.1 Anoxic brain damage, not elsewhere classified; F05 Delirium due to known physiological condition; L03.115 Cellulitis of right lower limb; E87.0 Hyperosmolality and hypernatremia; E87.1 Hypo-osmolality and hyponatremia; I47.10 Supraventricular tachycardia, unspecified; L03.313 Cellulitis of chest wall; N39.0 Urinary tract infection, site not specified; E11.610 Type 2 diabetes mellitus with diabetic neuropathic arthropathy; I27.22 Pulmonary hypertension due to left heart disease; J44.9 Chronic obstructive pulmonary disease, unspecified; E11.22 Type 2 diabetes mellitus with diabetic chronic kidney disease; E11.42 Type 2 diabetes mellitus with diabetic polyneuropathy; N18.30 Chronic kidney disease, stage 3 unspecified; E11.65 Type 2 diabetes mellitus with hyperglycemia; Z79.4 Long term (current) use of insulin; G93.89 Other specified disorders of brain; S82.851A Displaced trimalleolar fracture of right lower leg, initial encounter for closed fracture; E66.9 Obesity, unspecified; Z68.30 Body mass index [BMI] 30.0-30.9, adult; D50.9 Iron deficiency anemia, unspecified; I08.1 Rheumatic disorders of both mitral and tricuspid valves; K62.3 Rectal prolapse; R04.0 Epistaxis; S93.03XA Subluxation of unspecified ankle joint, initial encounter; E87.5 Hyperkalemia; I25.5 Ischemic cardiomyopathy; E78.5 Hyperlipidemia, unspecified; B96.20 Unspecified Escherichia coli [E. coli] as the cause of diseases classified elsewhere; R00.1 Bradycardia, unspecified; R15.9 Full incontinence of feces; R49.0 Dysphonia; R68.0 Hypothermia, not associated with low environmental temperature; N94.89 Other specified conditions associated with female genital organs and menstrual cycle; I25.10 Atherosclerotic heart disease of native coronary artery without angina pectoris; W06.XXXA Fall from bed, initial encounter; Y92.230 Patient room in hospital as the place of occurrence of the external cause; W19.XXXA Unspecified fall, initial encounter; Y92.009 Unspecified place in unspecified non-institutional (private) residence as the place of occurrence of the external cause; Z96.641 Presence of right artificial hip joint; Z79.84 Long term (current) use of oral hypoglycemic drugs; Z79.899 Other long term (current) drug therapy; Z95.5 Presence of coronary angioplasty implant and graft; Z79.82 Long term (current) use of aspirin; Z79.02 Long term (current) use of antithrombotics/antiplatelets; Z91.81 History of falling; Z87.891 Personal history of nicotine dependence; I25.2 Old myocardial infarction; Z78.1 Physical restraint status; Z86.69 Personal history of other diseases of the nervous system and sense organs
CPT/HCPCS: 36415; 36600; 43239; 70450; 71045; 71046; 74018; 76705; 80048; 80053; 80306; 81001; 82140; 82272; 82533; 82728; 82805; 83036; 83540; 83550; 83605; 83735; 83880; 84145; 84443; 84484; 85025; 85027; 85379; 85610; 85730; 86140; 86850; 86900; 86901; 86920; 87040; 87070; 87075; 87077; 87086; 87186; 87205; 87493; 88305; 92950; 93005; 93306; 93308; 93970; 93975; 94002; 94003; 94640; 94760; 95816; 96361; 96374; 96375; 96376; 99285

== ENCOUNTER 2023-10-09 10:18 | Inpatient (IN) | payer MEDICARE ==
--- NOTE | 2023-10-09 11:32 | ED ---
General Adult HPI - General Chief complaint: Recheck/Abnormal Lab/Rx Stated complaint: abn labs Time Seen by Provider: 10/09/23 11:02 Source: patient, RN notes reviewed, old records reviewed Mode of arrival: EMS Limitations: no limitations - History of Present Illness Initial comments: Patient is a 58-year-old female presenting from group home with concerns for worsening renal function. Patient has had vomiting a couple days ago however that has resolved. Patient has some mild continued nausea. No abdominal pain. Patient does have chronic renal impairment that reportedly is worse. - Related Data Home Medications Medication Instructions Recorded Confirmed rOPINIRole HCL [Requip] 1 mg PO HS 04/17/23 10/09/23 DULoxetine HCL [Cymbalta] 20 mg PO DAILY 10/09/23 10/09/23 Dapagliflozin Propanediol [Farxiga] 5 mg PO DAILY 10/09/23 10/09/23 Darbepoetin Frantz [Aranesp] 40 mcg SQ SA 10/09/23 10/09/23 Dextrose Chew [Glucose Chew Tab] 4 gm PO DIRECTED PRN 10/09/23 10/09/23 Healthshake 1 dose PO BID 10/09/23 10/09/23 Ipratropium-Albuterol Nebulize 3 ml INHALATION RT-Q6H PRN 10/09/23 10/09/23 [Duoneb 0.5 mg-3 mg/3 ml Soln] Multivitamins, Thera [Multivitamin 1 tab PO DAILY 10/09/23 10/09/23 (formulary)] Sodium Chloride [Saline Mist] 2 spray EA NOSTRIL TID 10/09/23 10/09/23 amLODIPine [Norvasc] 5 mg PO DAILY 10/09/23 10/09/23 risperiDONE [RisperDAL] 2 mg PO BID 10/09/23 10/09/23 Previous Rx's Medication Instructions Recorded Aspirin 81 mg PO DAILY 90 Days #90 tab 06/25/23 Acetaminophen Tab [Tylenol] 650 mg PO Q6HR PRN tab 09/27/23 Bumetanide [BUMEX] 1 mg PO DAILY tab 09/27/23 Clopidogrel [Plavix] 75 mg PO DAILY tab 09/27/23 Docusate [Colace] 100 mg PO BID cap 09/27/23 Fluticasone Nasal [place] [Flonase 2 spray EA NOSTRIL DAILY ml 09/27/23 Nasal [place]] Folic Acid 1 mg PO DAILY tab 09/27/23 Isosorbide Mononitrate ER [Imdur] 30 mg PO DAILY tab 09/27/23 Lidocaine 4% Patch 1 patch TOPICAL DAILY patch 09/27/23 Melatonin 5 mg PO HS tab 09/27/23 Metoprolol Succinate (ER) [Toprol 12.5 mg PO DAILY tab 09/27/23 XL] Spironolactone [Aldactone] 12.5 mg PO DAILY tab 09/27/23 Thiamine [Vitamin B-1] 100 mg PO DAILY tab 09/27/23 fluPHENAZine [Prolixin] 5 mg PO Q6HR PRN tab 09/27/23 hydrALAZINE HCL [Apresoline] 25 mg PO TID tab 09/27/23 rOPINIRole HCL [Requip] 1 mg PO HS PRN tab 09/27/23 Allergies Allergy/AdvReac Type Severity Reaction Status Date / Time No Known Allergies Allergy Verified 10/09/23 11:40 Review of Systems ROS Statement: Those systems with pertinent positive or pertinent negative responses have been documented in the HPI. ROS Other: All systems not noted in ROS Statement are negative. Endocrine: Reports: fatigue Gastrointestinal: Reports: as per HPI, nausea, vomiting. Denies: abdominal pain, diarrhea Past Medical History Past Medical History: Diabetes Mellitus, Hyperlipidemia, Hypertension, Renal Disease Additional Past Medical History / Comment(s): restless leg, neurothopy, Guillain-Tribune, dialysis History of Any Multi-Drug Resistant Organisms: None Reported Past Surgical History: Orthopedic Surgery, Tonsillectomy Additional Past Surgical History / Comment(s): "plate in left leg to straighten leg as a child" - plate removed, right total hip replacement due to a fracture from a fall, dialysis Past Anesthesia/Blood Transfusion Reactions: No Reported Reaction Past Psychological History: No Psychological Hx Reported Smoking Status: Former smoker Past Alcohol Use History: None Reported Past Drug Use History: None Reported General Exam Limitations: no limitations General appearance: alert, in no apparent distress Head exam: Present: normocephalic Eye exam: Present: normal appearance Neck exam: Present: normal inspection Respiratory exam: Present: normal lung sounds bilaterally Cardiovascular Exam: Present: regular rate, normal rhythm GI/Abdominal exam: Present: soft. Absent: tenderness Extremities exam: Present: pedal edema. Absent: calf tenderness Neurological exam: Present: alert Psychiatric exam: Present: normal affect, normal mood Skin exam: Present: erythema (Right anterior swann mild erythema from appearing healing wound) Course Vital Signs 10/09/23 10/09/23 10/09/23 10:37 10:45 11:42 Temperature 91.7 F L Pulse Rate 59 L 56 L Respiratory 17 15 Rate Blood Pressure 85/59 89/56 O2 Sat by Pulse 100 99 Oximetry 10/09/23 10/09/23 10/09/23 12:06 12:34 12:52 Temperature 90.0 F L 88.9 F L 91.4 F L Pulse Rate 55 L 56 L 51 L Respiratory 20 16 16 Rate Blood Pressure 85/57 84/54 85/53 O2 Sat by Pulse 99 97 98 Oximetry 10/09/23 10/09/23 10/09/23 13:05 13:33 13:54 Temperature 91.9 F L 92.7 F L 93.2 F L Pulse Rate 47 L 57 L 58 L Respiratory 16 20 22 Rate Blood Pressure 78/78 87/55 87/57 O2 Sat by Pulse 98 97 95 Oximetry 10/09/23 10/09/23 10/09/23 13:57 15:00 15:19 Temperature 93.4 F L Pulse Rate 52 L 57 L 57 L Respiratory 16 94 H 20 Rate Blood Pressure 89/56 90/50 86/49 O2 Sat by Pulse 96 95 95 Oximetry - Reevaluation(s) Reevaluation #1: 10/09/23 15:41 No source of infection identified at 1541 EKG Findings - EKG Results: EKG: interpreted by ERMD, sinus rhythm, normal axis, normal QRS, normal ST/T EKG shows: bradycardia Procedures - Procedures Initial comment: Verbal consent given. Patient has rectal prolapse that is easily reduced manually, no complications - Central Line Placement Right Femoral Consent Obtained: emergent situation Patient Placed on Monitor/Pulse Ox: Yes Prep: mask, gown, gloves Central Line Prep: Chlorhexidine scrub Local Anesthesia Used: Lidocaine 1% Amount of Anesthesia Used (mls): 2 Ultrasound Used for Placement: No Central Line Lumen Inserted: triple Central Line Position: good blood return, all ports aspirated, flushed, capped, sutured in place with 3-0 nylon Dressing Applied: Tegaderm Patient Tolerated Procedure: well, no complications Complications: none Medical Decision Making - Medical Decision Making Was pt. sent in by a medical professional or institution (, SILVIA, CLINICAL OPERATIONS LEADER, urgent care, hospital, or group home...) When possible be specific @ -No Did you speak to anyone other than the patient for history (EMS, parent, family, police, friend...)? What history was obtained from this source @ -No Did you review nursing and triage notes (agree or disagree)? Why? @ -I reviewed and agree with nursing and triage notes Were old charts reviewed (outside hosp., previous admission, EMS record, old EKG, old radiological studies, urgent care reports/EKG's, group home records)? Report findings @ -correction notes limited but Differential Diagnosis (chest pain, altered mental status, abdominal pain women, abdominal pain men, vaginal bleeding, weakness, fever, dyspnea, syncope, headache, dizziness, GI bleed, back pain, seizure, CVA, palpatations, mental health, musculoskeletal)? @ -MDM differential week differential Weakness: Hypoglycemia, shock, sepsis, hyponatremia, anemia, infection, IL, ETOH, adverse medicine reaction, overdose, stroke, this is not meant to be an all-inclusive list. EKG interpreted by me (3pts min.). @ -As above X-rays interpreted by me (1pt min.). @ -Chest x-ray shows cardiomegaly. Left lower lobe atelectasis acute or pneumonia possible consolidation unchanged from prior CT interpreted by me (1pt min.). @ -None done U/S interpreted by me (1pt. min.). @ -None done What testing was considered but not performed or refused? (CT, X-rays, U/S, labs)? Why? @ -None What meds were considered but not given or refused? Why? @ -None Did you discuss the management of the patient with other professionals (professionals i.e. SILVIA Lizama, CLINICAL OPERATIONS LEADER, lab, RT, psych nurse, licensed social worker, physician extender, teacher, corporate development officer, egg caser)? Give summary @ -Case discussed with Dr. Colón who will admit janet barrera Case also discussed with Dr. Pleitez who will consult for critical care. Was smoking cessation discussed for >3mins.? @ -No Was critical care preformed (if so, how long)? @ -3 minutes critical care to Were there social determinants of health that impacted care today? How? (Homelessness, low income, unemployed, alcoholism, drug addiction, transportation, low edu. Level, literacy, decrease access to med. care, intermediate, rehab)? @ -No Was there de-escalation of care discussed even if they declined (Discuss DNR or withdrawal of care, Hospice)? DNR status @ -No What co-morbidities impacted this encounter? (DM, HTN, Smoking, COPD, CAD, Cancer, CVA, ARF, Chemo, Hep., AIDS, mental health diagnosis, sleep apnea, morbid obesity)? @ -History of renal failure Was patient admitted / discharged? Hospital course, mention meds given and route, prescriptions, significant lab abnormalities, going to OR and other pertinent info. @ -Patient presents with history of acute on chronic renal failure. Patient presents hypotensive and hypothermic. Fluid boluses ordered and received without significant improvement of pressure. Central line placed. Patient will be admitted to intensive care unit and Levophed will be started Undiagnosed new problem with uncertain prognosis? @ -No Drug Therapy requiring intensive monitoring for toxicity (Heparin, Nitro, Insulin, Cardizem)? @ -Levophed for blood pressure Were any procedures done? @ -Central line Diagnosis/symptom? @ -Acute kidney injury, hypothermia, hypotension Acute, or Chronic, or Acute on Chronic? @ -Acute, acute, acute Uncomplicated (without systemic symptoms) or Complicated (systemic symptoms)? @ -Complicated with hypotension Side effects of treatment? @ -No Exacerbation, Progression, or Severe Exacerbation? @ -No Poses a threat to life or bodily function? How? (Chest pain, [place], [place], pneumonia, PE, COPD, DKA, ARF, appy, cholecystitis, CVA, Diverticulitis, Homicidal, Suicidal, threat to staff... and all critical care pts) @ -Threat to life and organ function and renal function - Lab Data Result diagrams: 10/09/23 11:46 10/09/23 11:46 Lab Results 10/09/23 10/09/23 10/09/23 Range/Units 11:46 11:46 11:46 WBC 4.3 (3.8-10.6) k/uL RBC 2.81 L (3.80-5.40) m/uL Hgb 8.0 L (11.4-16.0) gm/dL Hct 27.4 L (34.0-46.0) % MCV 97.3 (80.0-100.0) fL MCH 28.6 (25.0-35.0) pg MCHC 29.3 L (31.0-37.0) g/dL RDW 18.1 H (11.5-15.5) % Plt Count 125 L (150-450) k/uL MPV 12.0 Neutrophils % 75 % Lymphocytes % 14 % Monocytes % 5 % Eosinophils % 2 % Basophils % 1 % Neutrophils # 3.2 (1.3-7.7) k/uL Lymphocytes # 0.6 L (1.0-4.8) k/uL Monocytes # 0.2 (0-1.0) k/uL Eosinophils # 0.1 (0-0.7) k/uL Basophils # 0.0 (0-0.2) k/uL Hypochromasia Marked Poikilocytosis Slight Anisocytosis Slight Macrocytosis Slight PT 11.4 (10.0-12.5) sec INR 1.0 (<1.2) APTT 29.3 (22.0-30.0) sec Sodium 134 L (137-145) mmol/L Potassium 6.0 H (3.5-5.1) mmol/L Chloride 109 H (98-107) mmol/L Carbon Dioxide 15 L (22-30) mmol/L Anion Gap 10 mmol/L BUN 130 H* (7-17) mg/dL Creatinine 3.72 H (0.52-1.04) mg/dL Est GFR (CKD-EPI)AfAm 15 (>60 ml/min/1.73 sqM) Est GFR (CKD-EPI)NonAf 13 (>60 ml/min/1.73 sqM) Glucose 100 H (74-99) mg/dL Plasma Lactic Acid [place] (0.7-2.0) mmol/L Calcium 6.3 L* (8.4-10.2) mg/dL Ionized Calcium [place]uz (4.5-5.3) mg/dL Magnesium 2.4 H (1.6-2.3) mg/dL Total Bilirubin 0.3 (0.2-1.3) mg/dL AST 22 (14-36) U/L ALT 30 (4-34) U/L Alkaline Phosphatase 201 H (38-126) U/L Total Protein 6.3 (6.3-8.2) g/dL Albumin 2.8 L (3.5-5.0) g/dL TSH 8.160 H (0.465-4.680) mIU/L Free T4 0.97 (0.78-2.19) ng/dL Influenza Type A (PCR) (Not Detectd) Influenza Type B (PCR) (Not Detectd) RSV (PCR) (Not Detectd) SARS-CoV-2 (PCR) (Not Detectd) 10/09/23 10/09/23 10/09/23 Range/Units 11:46 12:50 14:13 WBC (3.8-10.6) k/uL RBC (3.80-5.40) m/uL Hgb (11.4-16.0) gm/dL Hct (34.0-46.0) % MCV (80.0-100.0) fL MCH (25.0-35.0) pg MCHC (31.0-37.0) g/dL RDW (11.5-15.5) % Plt Count (150-450) k/uL MPV Neutrophils % % Lymphocytes % % Monocytes % % Eosinophils % % Basophils % % Neutrophils # (1.3-7.7) k/uL Lymphocytes # (1.0-4.8) k/uL Monocytes # (0-1.0) k/uL Eosinophils # (0-0.7) k/uL Basophils # (0-0.2) k/uL Hypochromasia Poikilocytosis Anisocytosis Macrocytosis PT (10.0-12.5) sec INR (<1.2) APTT (22.0-30.0) sec Sodium (137-145) mmol/L Potassium (3.5-5.1) mmol/L Chloride (98-107) mmol/L Carbon Dioxide (22-30) mmol/L Anion Gap mmol/L BUN (7-17) mg/dL Creatinine (0.52-1.04) mg/dL Est GFR (CKD-EPI)AfAm (>60 ml/min/1.73 sqM) Est GFR (CKD-EPI)NonAf (>60 ml/min/1.73 sqM) Glucose (74-99) mg/dL Plasma Lactic Acid [place] 0.6 L (0.7-2.0) mmol/L Calcium (8.4-10.2) mg/dL Ionized Calcium [place] 3.7 L (4.5-5.3) mg/dL Magnesium (1.6-2.3) mg/dL Total Bilirubin (0.2-1.3) mg/dL AST (14-36) U/L ALT (4-34) U/L Alkaline Phosphatase (38-126) U/L Total Protein (6.3-8.2) g/dL Albumin (3.5-5.0) g/dL TSH (0.465-4.680) mIU/L Free T4 (0.78-2.19) ng/dL Influenza Type A (PCR) Not Detected (Not Detectd) Influenza Type B (PCR) Not Detected (Not Detectd) RSV (PCR) Not Detected (Not Detectd) SARS-CoV-2 (PCR) Not Detected (Not Detectd) Critical Care Time Critical Care Time: Yes Disposition Clinical Impression: Hypotension Disposition: ADMITTED IP TO THIS HOSP Is patient prescribed a controlled substance at d/c from ED?: No Referrals: Fadi Nolen DO [Primary Care Provider] - 1-2 days Time of Disposition: 15:21
[2023-10-09 12:06] LABS: Anisocytosis Slight; Basophils % (A) 1 %; Eosinophils # (A) 0.1 k/uL (0-0.7); Eosinophils % (A) 2 %; HCT 27.4 % (34.0-46.0); Hypochromasia Marked; Lymphocytes # (A) 0.6 k/uL (1.0-4.8); Lymphocytes % (A) 14 %; MCH 28.6 pg (25.0-35.0); MCHC 29.3 g/dL (31.0-37.0); MCV 97.3 fL (80.0-100.0); Macrocytosis Slight; Monocytes # (A) 0.2 k/uL (0-1.0); Monocytes % (A) 5 %; Neutrophils # (A) 3.2 k/uL (1.3-7.7); Neutrophils % (A) 75 %; Platelet Count 125 k/uL (150-450); Poikilocytosis Slight; RBC 2.81 m/uL (3.80-5.40); RDW 18.1 % (11.5-15.5); WBC 4.3 k/uL (3.8-10.6)
[2023-10-09 12:18] LABS: Partial Thromboplastin Time 29.3 sec (22.0-30.0); Prothrombin Time 11.4 sec (10.0-12.5)
[2023-10-09 12:20] LABS: ALT 30 U/L (4-34); AST 22 U/L (14-36); African American GFR (CKD) 15 (>60 ml/min/1.73 sqM); Albumin 2.8 g/dL (3.5-5.0); Alkaline Phosphatase 201 U/L (38-126); Anion Gap 10 mmol/L; Carbon Dioxide 15 mmol/L (22-30); Chloride 109 mmol/L (98-107); Glucose 100 mg/dL (74-99); Magnesium 2.4 mg/dL (1.6-2.3); Non-African American GFR(CKD) 13 (>60 ml/min/1.73 sqM); Sodium 134 mmol/L (137-145); Total Bilirubin 0.3 mg/dL (0.2-1.3); Total Protein 6.3 g/dL (6.3-8.2)
[2023-10-09] MEDS: SODIUM CHLORIDE 0.9% 1,000 ML IV STA ×3 (12:42→13:41)
[2023-10-09] MEDS: FAMOTIDINE 20 MG/2 ML VIAL IV STA (12:43)
[2023-10-09 12:50] LABS: Blood Urea Nitrogen 130 mg/dL (7-17); Calcium 6.3 mg/dL (8.4-10.2)
[2023-10-09 13:18] LABS: T4, Free (Free Thyroxine) 0.97 ng/dL (0.78-2.19)
--- NOTE | 2023-10-09 13:29 | XR ---
EXAMINATION TYPE: XR chest 2V DATE OF EXAM: 10/09/2023 COMPARISON: 09/27/2023 TECHNIQUE: PA and lateral views submitted. HISTORY: Potential FINDINGS: Imaging inspiration with cardiomegaly. Upper mediastinum is prominent may be positional. Adenopathy n ot excluded. Diffuse interstitial pattern with thickening or fluid within the minor fissure and tiny bilateral pleural effusion. No pneumothorax. Degenerative change of the spine. Left retrocardiac cons olidation. IMPRESSION: 1. Correlate for mild CHF. 2. Left lower lobe consolidation could be on the basis of pneumonia or chronic atelectasis. Stable fr om prior exam.
[2023-10-09] MEDS ORDERED: IPRATROPIUM-ALBUTEROL 3 ML NEB INHALATION PRN (15:10)
[2023-10-09] MEDS ORDERED: NALOXONE 0.4 MG/ML 1 ML VIAL IV PRN (15:21)
--- NOTE | 2023-10-09 16:16 | US ---
EXAMINATION TYPE: US renals and bladder DATE OF EXAM: 10/09/2023 COMPARISON: US CLINICAL INDICATION: Female, 58 years old with history of MARYLOU; MARYLOU, edema EXAM MEASUREMENTS: Right Kidney: 11.3 x 5.0 x 4.5 cm Left Kidney: 11.1 x 5.2 x 5.6 cm Right Kidney: No hydronephrosis or masses seen, lower pole gassed out Left Kidney: No evidence of hydro- difficult to visualize due to immobile pt with extensive edema Bladder: Empty, cath in place Suboptimal study particularly visualizing left kidney. There is no evidence for hydronephrosis within neither kidney. [place] catheter in bladder. IMPRESSION: Suboptimal study but no gross hydronephrosis identified bilaterally.
[2023-10-09] MEDS: NOREPINEPHRINE 32 MG in SODIUM CHLORIDE 0.9% 218 ML IV SCH (16:17)
[2023-10-09] MEDS: CALCIUM GLUCONATE IN NACL 1 GM in SALINE 1 100ML.BAG IVPB ONE ×2 (17:47→23:52)
[2023-10-09 19:27] LABS: Appearance,Urine Turbid (Clear); Bacteria,Urine Many /hpf; Bilirubin,Urine Negative (Negative); Blood,Urine Large (Negative); Color,Urine Dark Red; Glucose,Urine (UA) Negative (Negative); Ketones,Urine Negative (Negative); Leukocyte Esterase,Urine Large (Negative); Nitrite,Urine Negative (Negative); Protein,Urine 2+ (Negative); RBC,Urine >182 /hpf (0-5); Squamous Epithelial Cell,Urine 19 /hpf (0-4); Urobilinogen,Urine <2.0 mg/dL (<2.0); WBC,Urine >182 /hpf (0-5)
[2023-10-09 19:29] LABS: Specific Gravity,Urine 1.022 (1.001-1.035)
[2023-10-09 19:59] LABS: African American GFR (CKD) 15 (>60 ml/min/1.73 sqM); Anion Gap 15 mmol/L; Chloride 113 mmol/L (98-107); Glucose 75 mg/dL (74-99); Non-African American GFR(CKD) 13 (>60 ml/min/1.73 sqM); Sodium 136 mmol/L (137-145)
[2023-10-09] MEDS: HEPARIN SODIUM,PORCINE 5,000 UNIT/ML 1 ML VIAL SQ SCH (20:25)
[2023-10-09] MEDS: DOCUSATE 100 MG CAP PO SCH (20:25)
[2023-10-09] MEDS: MELATONIN 5 MG TABLET PO SCH (20:25)
[2023-10-09 20:26] LABS: Potassium 6.5 mmol/L (3.5-5.1)
[2023-10-09 20:27] LABS: Blood Urea Nitrogen 129 mg/dL (7-17)
[2023-10-09 20:28] LABS: Calcium 6.2 mg/dL (8.4-10.2); Carbon Dioxide 8 mmol/L (22-30)
[2023-10-09] MEDS ORDERED: DEXTROSE 50% SYRINGE 50 ML IVP PRN (20:38)
--- NOTE | 2023-10-09 20:43 | P.HPIM ---
History of Present Illness H&P Date: 10/09/23 Chief Complaint: Elevated creatinine level Patient is a 58-year-old female with a past medical history of hypertension, hyperlipidemia, diabetes type 2, CKD stage III with baseline creatinine around 1.8, ischemic cardiomyopathy with improved EF, GBS, history of hemodialysis and prior history of smoking was sent from [facility] due to worsening renal function with elevated creatinine level.. Patient was recently discharged from the hospital on 09/27/2023. Admitted on 08/19/2023. Patient was status post cardiac arrest and respiratory failure requiring intubation. Patient was treated for acute CHF and hypoxic respiratory failure, ischemic cardiomyopathy ejection fraction improved. Patient was discharged to [facility]. Patient also has right heel stage III pressure ulcer and subacute fracture of the medial and lateral malleolus, no plans for immediate surgical intervention as per orthopedic surgery. She was also treated for E. coli urinary tract infection. Patient was having episodes of vomiting couple days ago and also had diarrhea yesterday. Continue to have nausea and decreased oral intake. Otherwise denies any complaints of abdominal pain. No complaints of diarrhea at today. Patient was recently discharged home with antibiotics, doxycycline on 09/27/2023. Denied any fever or chills. No chest pain or shortness of breath. No cough or sputum production. Chest x-ray showed correlate for mild CHF. Left lower lobe consolidation could be on the basis of pneumonia or chronic atelectasis. Stable from prior exam. EKG showed sinus bradycardia with heart rate 55. Laboratory data showed hemoglobin 8.0, WBC 4.3 and platelets 125 Sodium 134 potassium 6.0 chloride 109 bicarb is 15 BUN 130 and creatinine 3.72 and blood sugar 100 lactic acid 0.6 and calcium 6.3. Magnesium 2.4 alk phos 201 TSH 8.1 and free T40.94 0.97 Urinalysis showed turbid with large blood large leukocyte esterase and elevated RBCs and WBCs. Influenza A B and RSV COVID-19 PCR not detected. Patient was hypotensive with blood pressure 85/59 with pulse of 59 respirations 17 and pulse ox 100% on 2 L oxygen on admission. Review of Systems Constitutional: Patient denies any fever or chills . Patient does have generalized weakness and fatigue.. Abdomen: Patient did have nausea vomiting and diarrhea. Denies any abdominal pain. Cardiovascular: Patient denies any chest pain or short of breath no palpitations. Respiratory: patient denied any cough or sputum production. No shortness of breath Neurologic: Patient denied any numbness or tingling. no headache. Musculoskeletal: Patient denies any complaints of joint swelling or deformity. Skin: Negative Psychiatric: Negative Endocrine: No heat or cold intolerance. No recent weight gain. Genitourinary: No dysuria or hematuria. All other 14 point ROS negative except the above Past Medical History Past Medical History: Diabetes Mellitus, Hyperlipidemia, Hypertension, Renal Disease Additional Past Medical History / Comment(s): restless leg, neurothopy, Guillain-Tavares, dialysis History of Any Multi-Drug Resistant Organisms: None Reported Past Surgical History: Orthopedic Surgery, Tonsillectomy Additional Past Surgical History / Comment(s): "plate in left leg to straighten leg as a child" - plate removed, right total hip replacement due to a fracture from a fall, dialysis Past Anesthesia/Blood Transfusion Reactions: No Reported Reaction Past Psychological History: No Psychological Hx Reported Smoking Status: Former smoker Past Alcohol Use History: None Reported Past Drug Use History: None Reported Medications and Allergies Home Medications Medication Instructions Recorded Confirmed Type rOPINIRole HCL [Requip] 1 mg PO HS 04/17/23 10/09/23 History Aspirin 81 mg PO DAILY 90 Days #90 tab 06/25/23 10/09/23 Rx Acetaminophen Tab [Tylenol] 650 mg PO Q6HR PRN tab 09/27/23 10/09/23 Rx Bumetanide [BUMEX] 1 mg PO DAILY tab 09/27/23 10/09/23 Rx Clopidogrel [Plavix] 75 mg PO DAILY tab 09/27/23 10/09/23 Rx Docusate [Colace] 100 mg PO BID cap 09/27/23 10/09/23 Rx Fluticasone Nasal [place] [Flonase 2 spray EA NOSTRIL DAILY ml 09/27/23 10/09/23 Rx Nasal [place]] Folic Acid 1 mg PO DAILY tab 09/27/23 10/09/23 Rx Isosorbide Mononitrate ER [Imdur] 30 mg PO DAILY tab 09/27/23 10/09/23 Rx Lidocaine 4% Patch 1 patch TOPICAL DAILY patch 09/27/23 10/09/23 Rx Melatonin 5 mg PO HS tab 09/27/23 10/09/23 Rx Metoprolol Succinate (ER) [Toprol 12.5 mg PO DAILY tab 09/27/23 10/09/23 Rx XL] Spironolactone [Aldactone] 12.5 mg PO DAILY tab 09/27/23 10/09/23 Rx Thiamine [Vitamin B-1] 100 mg PO DAILY tab 09/27/23 10/09/23 Rx fluPHENAZine [Prolixin] 5 mg PO Q6HR PRN tab 09/27/23 10/09/23 Rx hydrALAZINE HCL [Apresoline] 25 mg PO TID tab 09/27/23 10/09/23 Rx rOPINIRole HCL [Requip] 1 mg PO HS PRN tab 09/27/23 10/09/23 Rx DULoxetine HCL [Cymbalta] 20 mg PO DAILY 10/09/23 10/09/23 History Dapagliflozin Propanediol [Farxiga] 5 mg PO DAILY 10/09/23 10/09/23 History Darbepoetin Frantz [Aranesp] 40 mcg SQ SA 10/09/23 10/09/23 History Dextrose Chew [Glucose Chew Tab] 4 gm PO DIRECTED PRN 10/09/23 10/09/23 History Healthshake 1 dose PO BID 10/09/23 10/09/23 History Ipratropium-Albuterol Nebulize 3 ml INHALATION RT-Q6H PRN 10/09/23 10/09/23 History [Duoneb 0.5 mg-3 mg/3 ml Soln] Multivitamins, Thera [Multivitamin 1 tab PO DAILY 10/09/23 10/09/23 History (formulary)] Sodium Chloride [Saline Mist] 2 spray EA NOSTRIL TID 10/09/23 10/09/23 History amLODIPine [Norvasc] 5 mg PO DAILY 10/09/23 10/09/23 History risperiDONE [RisperDAL] 2 mg PO BID 10/09/23 10/09/23 History Allergies Allergy/AdvReac Type Severity Reaction Status Date / Time No Known Allergies Allergy Verified 10/09/23 11:40 Physical Exam Vitals: Vital Signs Temp Pulse Resp BP Pulse Ox 10/09/23 13:57 93.4 F L 52 L 16 89/56 96 10/09/23 13:54 93.2 F L 58 L 22 87/57 95 10/09/23 13:33 92.7 F L 57 L 20 87/55 97 10/09/23 13:05 91.9 F L 47 L 16 78/78 98 10/09/23 12:52 91.4 F L 51 L 16 85/53 98 10/09/23 12:34 88.9 F L 56 L 16 84/54 97 10/09/23 12:06 90.0 F L 55 L 20 85/57 99 10/09/23 11:42 56 L 15 89/56 99 10/09/23 10:45 91.7 F L 10/09/23 10:37 59 L 17 85/59 100 Intake and Output 10/09/23 10/09/23 10/09/23 06:59 14:59 22:59 Other: Weight 71.668 kg PHYSICAL EXAMINATION: Patient is lying in the bed comfortably, no acute distress, awake alert and oriented.. HEENT: Normocephalic. Neck is supple. Pupils reactive. Nostrils clear. Oral cavity is moist. Neck reveals no JVD, carotid bruits, or thyromegaly. CHEST EXAMINATION: Trachea is central. Symmetrical expansion. Bibasilar diminished sounds. No wheezing or rhonchi. CARDIAC: Normal S1, S2 with no gallops. No murmurs ABDOMEN: Soft. Bowel sounds normal. No organomegaly. No abdominal bruits. Extremities: reveal no edema. No clubbing or cyanosis Neurologically awake, alert, oriented x3. Able to move all extremities.. Gross no focal deficits noted Skin: No rash. Patient does have bilateral heel ulcers bandaged. Psychiatric: Coperative. Nonsuicidal Musculoskeletal: No joint swelling or deformity. Results CBC & Chem 7: 10/09/23 11:46 10/09/23 19:29 Labs: Abnormal Lab Results - Last 24 Hours (Table) 10/09/23 10/09/23 10/09/23 Range/Units 11:46 11:46 11:46 RBC 2.81 L (3.80-5.40) m/uL Hgb 8.0 L (11.4-16.0) gm/dL Hct 27.4 L (34.0-46.0) % MCHC 29.3 L (31.0-37.0) g/dL RDW 18.1 H (11.5-15.5) % Plt Count 125 L (150-450) k/uL Lymphocytes # 0.6 L (1.0-4.8) k/uL Sodium 134 L (137-145) mmol/L Potassium 6.0 H (3.5-5.1) mmol/L Chloride 109 H (98-107) mmol/L Carbon Dioxide 15 L (22-30) mmol/L BUN 130 H* (7-17) mg/dL Creatinine 3.72 H (0.52-1.04) mg/dL Glucose 100 H (74-99) mg/dL Plasma Lactic Acid [place] 0.6 L (0.7-2.0) mmol/L Calcium 6.3 L* (8.4-10.2) mg/dL Magnesium 2.4 H (1.6-2.3) mg/dL Alkaline Phosphatase 201 H (38-126) U/L Albumin 2.8 L (3.5-5.0) g/dL TSH 8.160 H (0.465-4.680) mIU/L Thrombosis Risk Factor Assmnt - DVT/VTE Prophylaxis DVT/VTE Prophylaxis: Pharmacologic Prophylaxis ordered Assessment and Plan Assessment: Acute kidney injury likely due to ATN due to hypotension and possible infection. Creatinine 3.72 on admission baseline creatinine around 1.8 Hyperkalemia due to MARYLOU Non-anion gap metabolic acidosis Recent nausea vomiting and diarrhea. CKD stage III stage IIIb due to nephrosclerosis/nephropathy and cardiorenal.. Hypotension Urinary tract infection Possible pneumonia with left lower lobe consolidation on chest x-ray. Hypertension. Patient is currently hypotensive. Recent admission due Asystole/cardiopulmonary rest and hypoxic respiratory failure. Discharged to [facility] on 09/27/2023. History of antral gastritis Anemia of chronic disease and iron deficiency anemia Coronary artery disease with history of stent placement to RCA and May 2023. Chronic CHF with systolic dysfunction Ischemic cardiomyopathy with improved EF Subacute fracture of the medial and lateral malleolus, orthopedics following with no plans of immediate surgical intervention at this time Right heel stage III pressure injury continue local wound care with aquacel ID following. Genital lesions, will need tie tamper follow up outpatient for routine screenings Hyperlipidemia Type 2 diabetes mellitus uncontrolled hgb a1c 12.1 Severe pulmonary hypertension COPD without any acute exacerbation Peripheral neuropathy GI prophylaxis with PPI DVT prophylaxis heparin SQ every 12 Plan: Patient will be continued on IV hydration with normal saline. Patient continues to be hypotensive despite fluid boluses in the ER. Patient is being transferred to the MICU for possible pressor support. Current antibiotics ceftriaxone and will add azithromycin for possible pneumonia. Follow-up urine culture and blood culture. Procalcitonin was ordered. Blood pressure medications and diuretics on hold. Insulin sliding scale for blood sugar control. Continue with home medications and follow-up closely. Prognosis is guarded at this time. Time with Patient: Greater than 30
[2023-10-09 21:15] LABS: Glucose,Whole Blood 82 mg/dL (70-110)
[2023-10-09] MEDS: INSULIN ASPART (NovoLOG) 100 UNIT/ML VIAL SQ SCH (21:31)
[2023-10-09] MEDS: AZITHROMYCIN 500 MG in SODIUM CHLORIDE 0.9% 250 ML IVPB STA (21:41)
[2023-10-09 22:24] LABS: Glucose,Whole Blood 94 mg/dL (70-110)
[2023-10-09] MEDS: SODIUM BICARB 8.4% 50 ML SYR (1 MEQ/ML) IV STA (23:07)
[2023-10-09] MEDS: INSULIN REGULAR 100 UNIT/ML VIAL (IV) IV ONE (23:07)
[2023-10-09] MEDS: DEXTROSE 50% SYRINGE 50 ML IVP ONE (23:07)
[2023-10-09] MEDS: SODIUM BICARB 8.4% 50 ML SYR (1 MEQ/ML) IV ONE (23:07)
[2023-10-09] MEDS: SODIUM ZIRCONIUM CYCLOSILICATE 10 GM PACKET PO ONE (23:07)
[2023-10-09] MEDS: ALBUTEROL NEB (CONC) 2.5 MG/0.5 ML INHALATION ONE (23:15)
[2023-10-09] MEDS: NOREPINEPHRINE 4 MG in SODIUM CHLORIDE 0.9% 250 ML IV SCH (23:53)
--- NOTE | 2023-10-10 01:52 | XR ---
EXAM: XR Chest, 1 View CLINICAL HISTORY: ITS.REASON XR Reason: nasogastric tube TECHNIQUE: Frontal view of the chest. COMPARISON: No relevant prior studies available. IMPRESSION: Cardiomegaly. NG tube in good position
--- NOTE | 2023-10-10 03:14 | P.CNPUL ---
History of Present Illness Consult date: 10/10/23 Requesting physician: Zack Leon Reason for consult: other (ICU management) Chief complaint: Sent in from [facility] for abnormal labs and worsening renal function History of present illness: Patient is a 58-year-old white female with multiple medical comorbidities including coronary artery disease with previous PCI/stenting and [place], cardiomyopathy, pulmonary hypertension, systemic hypertension, hyperlipidemia, diabetes mellitus, chronic leg wounds, COPD, chronic kidney disease, among other things. Of note, she had a recent prolonged and complicated hospital stay 08/19/2023 through 09/27/2023. During this time, she did have a cardiopulmonary arrest and a prolonged stay in the intensive care unit. She was temporarily intubated following the cardiac arrest. She did develop acute renal failure and had temporary hemodialysis during her stay. Hemodialysis catheter has since been removed. She was eventually discharged to [facility] on 09/27/2023. She has been altered and confused. Possibly encephalopathic, and an overall poor historian. Patient was sent back in from the [facility] with abnormal labs and concerns for worsening renal function and hyperkalemia. Potassium is noted to be 6 initially on arrival. EKG on arrival shows sinus bradycardia 55 bpm. No hyperacute T waves or QRS widening. While in the emergency department, she was noted to be hypotensive, fluid resuscitated with 2 L of normal saline bolus, and then started on low-dose norepinephrine. A right femoral central line was inserted by the ER physician. Patient is currently in the intensive care unit on my evaluation. She is currently responsive to verbal stimuli, will wake up, and then falls back asleep. Information obtained not consistent for accurate interview. She believes she is at a friend's house. She is hypothermic, and has an external warming blanket on. Most recent temperature 35.4 C. She is currently on 3 L/min nasal cannula. SpO2 is 97%. Chest x-ray shows cardiomegaly with interstitial prominence and possible trace bilateral pleural effusions. There is a stable left lower lobe consolidation and or atelectasis. Overall picture more consistent with mild CHF. Patient does have a history of ischemic cardiomyopathy. Most recent echocardiogram done on 08/26/2023 shows an improvement, in the patient's previously severely reduced left ventricular ejection fraction, to 55 to 60%. Norepinephrine is currently infusing at 0.05 mcg/kg/min. There is a right femoral central line, with a pulsatile waveform, likely arterial placement, which has since been removed and pressure has been held. Hemostasis has been achieved by nursing staff. Most recent labs include a CBC with a WBC count 4.3, hemoglobin stable at 8 grams per deciliter, hematocrit 27.4, platelets 125. Most recent BMP: Sodium 136, potassium 6.5, chloride 113, serum bicarb 8, BUN 129, creatinine 3.73, glucose 75. I have treated the patient's hyperkalemia with the hyperkalemia protocol including 10 units of regular insulin, 1 amp D50 W, 2 amp sodium bicarbonate, another gram of calcium gluconate, concentrated albuterol. Due to patient being altered, an NG tube was inserted for Lokelma. Nephrology has since been involved. Urinalysis positive for bacteria and leukocyte esterase and blood. Concerning for urinary tract infection. Patient did have a urinary tract infection on previous hospital admission, and isolated organism was positive for E. coli. She did come from the ECF with an indwelling urinary catheter, which has since been replaced. There is a minimal amount of urine output with gross hematuria. She is empirically covered on Rocephin. Renal ultrasound did not show any evidence of hydronephrosis in either kidney. Dr. Ayala has since been called and updated on patient's status. Review of Systems ROS unobtainable: due to mental status Past Medical History Past Medical History: Diabetes Mellitus, Hyperlipidemia, Hypertension, Renal Disease Additional Past Medical History / Comment(s): restless leg, neurothopy, Guillain-[place], dialysis History of Any Multi-Drug Resistant Organisms: None Reported Past Surgical History: Orthopedic Surgery, Tonsillectomy Additional Past Surgical History / Comment(s): "plate in left leg to straighten leg as a child" - plate removed, right total hip replacement due to a fracture from a fall, dialysis Past Anesthesia/Blood Transfusion Reactions: No Reported Reaction Past Psychological History: No Psychological Hx Reported Smoking Status: Former smoker Past Alcohol Use History: None Reported Past Drug Use History: None Reported Medications and Allergies Home Medications Medication Instructions Recorded Confirmed Type rOPINIRole HCL [Requip] 1 mg PO HS 04/17/23 10/09/23 History Aspirin 81 mg PO DAILY 90 Days #90 tab 06/25/23 10/09/23 Rx Acetaminophen Tab [Tylenol] 650 mg PO Q6HR PRN tab 09/27/23 10/09/23 Rx Bumetanide [BUMEX] 1 mg PO DAILY tab 09/27/23 10/09/23 Rx Clopidogrel [Plavix] 75 mg PO DAILY tab 09/27/23 10/09/23 Rx Docusate [Colace] 100 mg PO BID cap 09/27/23 10/09/23 Rx Fluticasone Nasal [place] [Flonase 2 spray EA NOSTRIL DAILY ml 09/27/23 10/09/23 Rx Nasal [place]] Folic Acid 1 mg PO DAILY tab 09/27/23 10/09/23 Rx Isosorbide Mononitrate ER [Imdur] 30 mg PO DAILY tab 09/27/23 10/09/23 Rx Lidocaine 4% Patch 1 patch TOPICAL DAILY patch 09/27/23 10/09/23 Rx Melatonin 5 mg PO HS tab 09/27/23 10/09/23 Rx Metoprolol Succinate (ER) [Toprol 12.5 mg PO DAILY tab 09/27/23 10/09/23 Rx XL] Spironolactone [Aldactone] 12.5 mg PO DAILY tab 09/27/23 10/09/23 Rx Thiamine [Vitamin B-1] 100 mg PO DAILY tab 09/27/23 10/09/23 Rx fluPHENAZine [Prolixin] 5 mg PO Q6HR PRN tab 09/27/23 10/09/23 Rx hydrALAZINE HCL [Apresoline] 25 mg PO TID tab 09/27/23 10/09/23 Rx rOPINIRole HCL [Requip] 1 mg PO HS PRN tab 09/27/23 10/09/23 Rx DULoxetine HCL [Cymbalta] 20 mg PO DAILY 10/09/23 10/09/23 History Dapagliflozin Propanediol [Farxiga] 5 mg PO DAILY 10/09/23 10/09/23 History Darbepoetin Frantz [Aranesp] 40 mcg SQ SA 10/09/23 10/09/23 History Dextrose Chew [Glucose Chew Tab] 4 gm PO DIRECTED PRN 10/09/23 10/09/23 History Healthshake 1 dose PO BID 10/09/23 10/09/23 History Ipratropium-Albuterol Nebulize 3 ml INHALATION RT-Q6H PRN 10/09/23 10/09/23 History [Duoneb 0.5 mg-3 mg/3 ml Soln] Multivitamins, Thera [Multivitamin 1 tab PO DAILY 10/09/23 10/09/23 History (formulary)] Sodium Chloride [Saline Mist] 2 spray EA NOSTRIL TID 10/09/23 10/09/23 History amLODIPine [Norvasc] 5 mg PO DAILY 10/09/23 10/09/23 History risperiDONE [RisperDAL] 2 mg PO BID 10/09/23 10/09/23 History Allergies Allergy/AdvReac Type Severity Reaction Status Date / Time No Known Allergies Allergy Verified 10/09/23 11:40 Physical Exam Vitals: Vital Signs Temp Pulse Resp BP Pulse Ox 10/10/23 01:30 65 8 L 107/66 97 10/10/23 01:00 65 10 L 97/69 98 10/10/23 00:38 67 11 L 122/74 98 10/10/23 00:30 67 14 105/58 98 10/10/23 00:00 95.9 F L 69 18 120/70 98 10/09/23 23:30 65 12 109/74 98 10/09/23 23:28 68 10/09/23 23:15 65 10/09/23 23:00 95.9 F L 62 18 90/54 99 10/09/23 22:30 84/51 10/09/23 22:23 84/51 10/09/23 22:03 96.8 F L 63 21 91/52 97 10/09/23 21:33 97.1 F L 63 22 100/67 98 10/09/23 18:45 97.9 F 62 18 98/49 98 10/09/23 18:30 97.9 F 62 18 91/52 96 10/09/23 18:15 97.9 F 64 18 101/63 98 10/09/23 18:00 97.9 F 65 16 109/65 97 10/09/23 17:48 97.9 F 64 16 107/58 97 10/09/23 17:15 98.1 F 64 16 109/61 96 10/09/23 17:00 97.5 F L 62 16 103/62 97 10/09/23 16:45 97.3 F L 61 16 96/56 94 L 10/09/23 16:30 97.0 F L 60 16 95/53 95 10/09/23 16:13 97.8 F 60 16 95/51 95 10/09/23 15:59 96.3 F L 58 L 16 87/48 97 10/09/23 15:19 57 L 20 86/49 95 10/09/23 15:00 57 L 94 H 90/50 95 10/09/23 13:57 93.4 F L 52 L 16 89/56 96 10/09/23 13:54 93.2 F L 58 L 22 87/57 95 10/09/23 13:33 92.7 F L 57 L 20 87/55 97 10/09/23 13:05 91.9 F L 47 L 16 78/78 98 10/09/23 12:52 91.4 F L 51 L 16 85/53 98 10/09/23 12:34 88.9 F L 56 L 16 84/54 97 10/09/23 12:06 90.0 F L 55 L 20 85/57 99 10/09/23 11:42 56 L 15 89/56 99 10/09/23 10:45 91.7 F L 10/09/23 10:37 59 L 17 85/59 100 Intake and Output 10/09/23 10/09/23 10/10/23 14:59 22:59 06:59 Intake Total 10 41.424 Output Total 30 10 Balance -20 31.424 Intake: IV 10 30 .9 kvo 10 30 Intake, IV Titration 11.424 Amount Norepinephrine 32 mg In 11.424 Sodium Chloride 0.9% 218 ml @ 0.05 MCG/KG/MIN 1.68 mls/hr IV .Q24H [facility] Rx#: [id number] Output: Urine 30 10 Other: Voiding Method Indwelling Catheter Weight 71.668 kg 71.668 kg GENERAL EXAM: Lethargic and altered, responsive to verbal stimuli, 58-year-old white female, fairly comfortable in no apparent distress. Hypothermic with current reading of 35.4 C noted with temp sensing [place]. HEAD: Normocephalic and atraumatic EYES: Normal reaction of pupils, equal size. NOSE: Clear with pink turbinates. THROAT: No erythema or exudates. Dry mucous membranes NECK: No masses, no JVD. CHEST: No chest wall deformity. LUNGS: Equal air entry with diminished lung sounds bilaterally. On 3 L/min nasal cannula. No conversational dyspnea or accessory muscle use.. CVS: S1 and S2 normal with no audible murmur, regular rhythm. No extra heart sounds ABDOMEN: No hepatosplenomegaly, active bowel sounds, no guarding or rigidity. SPINE: No scoliosis or deformity SKIN: No rashes RECTUM: Complete rectal prolapse, red color CENTRAL NERVOUS SYSTEM: No focal deficits, tone is normal in all 4 extremities. EXTREMITIES: There is mild bilateral lower extremity edema. There is a right heel pressure ulcer, covered with Optifoam dressing. Remote appearing right swann/ankle incisions. No clubbing, or cyanosis. Peripheral pulses are intact. Results - Laboratory Findings CBC and BMP: 10/10/23 03:17 10/10/23 03:17 PT/INR, D-dimer PT 11.4 sec (10.0-12.5) 10/09/23 11:46 INR 1.0 (<1.2) 10/09/23 11:46 Abnormal lab findings: Abnormal Labs 10/09/23 10/09/23 10/09/23 11:46 11:46 11:46 RBC 2.81 L Hgb 8.0 L Hct 27.4 L MCHC 29.3 L RDW 18.1 H Plt Count 125 L Lymphocytes # 0.6 L Sodium 134 L Potassium 6.0 H Chloride 109 H Carbon Dioxide 15 L BUN 130 H* Creatinine 3.72 H Glucose 100 H Plasma Lactic Acid [place] 0.6 L Calcium 6.3 L* Ionized Calcium [place] Magnesium 2.4 H Alkaline Phosphatase 201 H Albumin 2.8 L TSH 8.160 H Free T3 pg/mL 1.10 L Urine Appearance Urine Protein Urine Blood Ur Leukocyte Esterase Urine RBC Urine WBC Urine WBC Clumps Ur Squamous Epith Cells Urine Bacteria 10/09/23 10/09/23 10/09/23 14:13 18:58 19:29 RBC Hgb Hct MCHC RDW Plt Count Lymphocytes # Sodium 136 L Potassium 6.5 H* Chloride 113 H Carbon Dioxide 8 L* BUN 129 H* Creatinine 3.73 H Glucose Plasma Lactic Acid [place] Calcium 6.2 L* Ionized Calcium [place] 3.7 L Magnesium Alkaline Phosphatase Albumin TSH Free T3 pg/mL Urine Appearance Turbid H Urine Protein 2+ H Urine Blood Large H Ur Leukocyte Esterase Large H Urine RBC >182 H Urine WBC >182 H Urine WBC Clumps Many H Ur Squamous Epith Cells 19 H Urine Bacteria Many H - Diagnostic Findings Chest x-ray: image reviewed Assessment and Plan Assessment: Hypotension refractory to fluid resuscitation and shock state, rule out sepsis and septic shock. Currently requiring low-dose norepinephrine. Suspect urinary tract infection and urosepsis Hypothermia, external warming blanket on Acute on chronic kidney disease, previously requiring temporary hemodialysis. Temporary hemodialysis catheter has since been removed. Severe hyperkalemia, most recent potassium 6.5, treated with the hyperkalemia protocol including 10 units of regular insulin, 1 amp D50 W, 2 amp sodium bicarbonate, another gram of calcium gluconate, concentrated albuterol, and Lokelma. Nephrology has since been involved. Severe non-anion gap metabolic acidosis, secondary to acute on chronic renal failure Altered mental status, suspect acute metabolic encephalopathy secondary to above Acute hypoxemic respiratory failure, currently on 3 L/min nasal cannula, possibly secondary to mild CHF exacerbation with preserved ejection fraction, Chest x-ray shows cardiomegaly with interstitial prominence and possible trace bilateral pleural effusions. There is a stable left lower lobe consolidation and/or atelectasis. Viral panel negative for influenza, RSV, COVID. Anemia of chronic disease, hemoglobin stable Hypocalcemia, being replaced Complete rectal prolapse, previous attempts to replace History of cardiopulmonary arrest, x 2, with cardiopulmonary resuscitation, and return of spontaneous circulation on 08/23/23 History of congestive heart failure (HFPEF) History of coronary artery disease and previous non-ST segment elevation myocardial infarction and PCI/stent to the RCA Stage III chronic kidney disease Right heel pressure ulcer, stage III Subacute fracture of the medial and lateral malleolus History of hypertension History of hyperlipidemia History of type 2 diabetes mellitus History of severe pulmonary hypertension History of COPD Plan: Patient is currently admitted to the intensive care unit. Severe hyperkalemia has been treated with the hyperkalemia protocol including 10 units of regular insulin, 1 amp D50 W, 2 amp sodium bicarbonate, another gram of calcium gluconate, concentrated albuterol, and Lokelma. Repeat potassium levels pending. EKG does not show any hyperacute T waves or QRS widening. Nephrology has since been consulted Indwelling urinary catheter has been replaced. Urine cultures and blood cultures are pending. Empirically covered on Rocephin. Continue low-dose norepinephrine to support blood pressure. Hold antihypertensives and beta-satnam as the patient is currently hypotensive and bradycardic. Dual antiplatelet medications have been resumed. Continue supplemental oxygen, and wean FiO2 as tolerated. Previously inserted central line femoral catheter has been removed, concerns for arterial placement as it had a arterial waveform. Pressure held and hemostasis achieved. External warming blanket on. Consult general surgery for rectal prolapse, multiple attempts have been made to replace. Protonix for GI prophylaxis Heparin for DVT prophylaxis. Overall prognosis is extremely guarded secondary to multiple above-mentioned comorbidities. I have personally seen and examined the patient, performed the documentation and the assessment and plan as written. Number of minutes spent on the visit:20 This is a joint evaluation that is being done along with the nurse practitioner. Evaluation was done more than 30 minutes. The patient presented to us with severe dehydration altered mentation and mental status seems to be improving gradually for now. She is currently off pressors. [place] catheter in place and there is suspected urinary tract infection the patient is currently on IV Rocephin. The patient also was given an NG tube. I believe the NG tube can be removed today. She is on 2 L of oxygen by nasal cannula. She is off pressors. She has a component of non-anion gap metabolic acidosis and the patient will be started on a bicarb infusion at rate of 100 cc an hour. Will monitor fever pattern. Monitor mental status. Pressors have been weaned off. Will keep the [place] catheter in place. Will continue to follow in the intensive care unit. Will offer wound care. Routine medications will be gradually introduced as the patient is recovering in terms of her mentation and hemodynamics. Will continue to follow. Potassium level is improved and the patient was treated for hyperkalemia with a combination of calcium gluconate, and Lokelma. No EKG changes for now. Will monitor renal function. Will continue to follow. Time with Patient: Greater than 30
[2023-10-10 03:57] LABS: Anisocytosis Slight; Basophils % (A) 1 %; Eosinophils % (A) 1 %; HCT 25.7 % (34.0-46.0); HGB 7.8 gm/dL (11.4-16.0); Hypochromasia Marked; Lymphocytes # (A) 0.7 k/uL (1.0-4.8); Lymphocytes % (A) 10 %; MCH 29.5 pg (25.0-35.0); MCHC 30.4 g/dL (31.0-37.0); MCV 97.2 fL (80.0-100.0); Macrocytosis Slight; Mean Platelet Volume 11.4; Monocytes # (A) 0.4 k/uL (0-1.0); Monocytes % (A) 7 %; Neutrophils # (A) 5.4 k/uL (1.3-7.7); Neutrophils % (A) 79 %; Platelet Count 128 k/uL (150-450); Poikilocytosis Slight; RBC 2.64 m/uL (3.80-5.40); RDW 18.4 % (11.5-15.5); WBC 6.8 k/uL (3.8-10.6)
[2023-10-10 05:02] LABS: African American GFR (CKD) 14 (>60 ml/min/1.73 sqM); Anion Gap 12 mmol/L; Carbon Dioxide 14 mmol/L (22-30); Chloride 112 mmol/L (98-107); Glucose 70 mg/dL (74-99); Non-African American GFR(CKD) 12 (>60 ml/min/1.73 sqM); Potassium 5.7 mmol/L (3.5-5.1); Sodium 138 mmol/L (137-145)
[2023-10-10 05:29] LABS: Calcium 6.1 mg/dL (8.4-10.2)
[2023-10-10 05:30] LABS: Blood Urea Nitrogen 123 mg/dL (7-17)
[2023-10-10 05:58] LABS: Glucose,Whole Blood 83 mg/dL (70-110)
[2023-10-10] MEDS: SODIUM CHLORIDE 0.9% 1,000 ML IV SCH (06:14)
[2023-10-10] MEDS: ASPIRIN 81 MG PO SCH (08:26)
[2023-10-10] MEDS: PANTOPRAZOLE 40 MG/10 ML VIAL IV SCH (08:26)
[2023-10-10] MEDS: CLOPIDOGREL 75 MG TAB PO SCH (08:26)
[2023-10-10] MEDS: FOLIC ACID 1 MG TAB PO SCH (08:27)
[2023-10-10] MEDS: THIAMINE 100 MG TAB PO SCH (08:27)
[2023-10-10] MEDS: DEXTROSE 5% IN WATER 1,000 ML with SODIUM BICARB (1 MEQ/ML) 150 ML IV SCH (10:18)
--- NOTE | 2023-10-10 13:04 | P.NPCON ---
History of Present Illness - Reason for Consult acute renal failure - History of Present Illness patient is a 58-year-old female with history of coronary artery disease, hypertension, chronic kidney disease stage IIIB with baseline creatinine about 1.5-1.8 mg/dL. Patient was recently discharged from the hospital after a prolonged hospitalization. She had a cardiac arrest with significant encephalopathy. Patient had been on temporary hemodialysis. Renal function had improved with serum creatinine at about 1.8-1.9 around the time of discharge. Patient is readmitted to the hospital this time with worsening renal function noted at the long-term. Patient was significantly hypotensive in the ER6. Also noted to be acidotic with hyperkalemia. Potassium was 6.5. Patient is currently maintained on bicarb drip. Urine output is low. Patient is also maintained on levofed. maintained on empiric antibiotics. UA suggestive of underlying UTI. Review of Systems as per HPI Past Medical History Past Medical History: Diabetes Mellitus, Hyperlipidemia, Hypertension, Renal Disease Additional Past Medical History / Comment(s): restless leg, neurothopy, Guillain-[place], dialysis History of Any Multi-Drug Resistant Organisms: None Reported Past Surgical History: Orthopedic Surgery, Tonsillectomy Additional Past Surgical History / Comment(s): "plate in left leg to straighten leg as a child" - plate removed, right total hip replacement due to a fracture from a fall, dialysis Past Anesthesia/Blood Transfusion Reactions: No Reported Reaction Past Psychological History: No Psychological Hx Reported Smoking Status: Former smoker Past Alcohol Use History: None Reported Past Drug Use History: None Reported Medications and Allergies Home Medications Medication Instructions Recorded Confirmed Type rOPINIRole HCL [Requip] 1 mg PO HS 04/17/23 10/09/23 History Aspirin 81 mg PO DAILY 90 Days #90 tab 06/25/23 10/09/23 Rx Acetaminophen Tab [Tylenol] 650 mg PO Q6HR PRN tab 09/27/23 10/09/23 Rx Bumetanide [BUMEX] 1 mg PO DAILY tab 09/27/23 10/09/23 Rx Clopidogrel [Plavix] 75 mg PO DAILY tab 09/27/23 10/09/23 Rx Docusate [Colace] 100 mg PO BID cap 09/27/23 10/09/23 Rx Fluticasone Nasal [place] [Flonase 2 spray EA NOSTRIL DAILY ml 09/27/23 10/09/23 Rx Nasal [place]] Folic Acid 1 mg PO DAILY tab 09/27/23 10/09/23 Rx Isosorbide Mononitrate ER [Imdur] 30 mg PO DAILY tab 09/27/23 10/09/23 Rx Lidocaine 4% Patch 1 patch TOPICAL DAILY patch 09/27/23 10/09/23 Rx Melatonin 5 mg PO HS tab 09/27/23 10/09/23 Rx Metoprolol Succinate (ER) [Toprol 12.5 mg PO DAILY tab 09/27/23 10/09/23 Rx XL] Spironolactone [Aldactone] 12.5 mg PO DAILY tab 09/27/23 10/09/23 Rx Thiamine [Vitamin B-1] 100 mg PO DAILY tab 09/27/23 10/09/23 Rx fluPHENAZine [Prolixin] 5 mg PO Q6HR PRN tab 09/27/23 10/09/23 Rx hydrALAZINE HCL [Apresoline] 25 mg PO TID tab 09/27/23 10/09/23 Rx rOPINIRole HCL [Requip] 1 mg PO HS PRN tab 09/27/23 10/09/23 Rx DULoxetine HCL [Cymbalta] 20 mg PO DAILY 10/09/23 10/09/23 History Dapagliflozin Propanediol [Farxiga] 5 mg PO DAILY 10/09/23 10/09/23 History Darbepoetin Frantz [Aranesp] 40 mcg SQ SA 10/09/23 10/09/23 History Dextrose Chew [Glucose Chew Tab] 4 gm PO DIRECTED PRN 10/09/23 10/09/23 History Healthshake 1 dose PO BID 10/09/23 10/09/23 History Ipratropium-Albuterol Nebulize 3 ml INHALATION RT-Q6H PRN 10/09/23 10/09/23 History [Duoneb 0.5 mg-3 mg/3 ml Soln] Multivitamins, Thera [Multivitamin 1 tab PO DAILY 10/09/23 10/09/23 History (formulary)] Sodium Chloride [Saline Mist] 2 spray EA NOSTRIL TID 10/09/23 10/09/23 History amLODIPine [Norvasc] 5 mg PO DAILY 10/09/23 10/09/23 History risperiDONE [RisperDAL] 2 mg PO BID 10/09/23 10/09/23 History Allergies Allergy/AdvReac Type Severity Reaction Status Date / Time No Known Allergies Allergy Verified 10/09/23 11:40 Physical Exam Vitals: Vital Signs Temp Pulse Resp BP Pulse Ox 10/10/23 12:00 94.5 F L 57 L 4 L 79/69 99 10/10/23 11:45 57 L 10 L 94/45 98 10/10/23 11:30 58 L 9 L 94/48 98 10/10/23 11:15 58 L 9 L 90/49 98 10/10/23 11:00 59 L 10 L 97/50 98 10/10/23 10:45 60 10 L 95/49 98 10/10/23 10:30 60 10 L 94/51 98 10/10/23 10:15 61 11 L 91/45 98 10/10/23 10:00 61 10 L 98/55 96 10/10/23 09:45 61 3 L 99/61 96 10/10/23 09:30 62 10 L 90/52 96 10/10/23 09:15 62 13 91/51 94 L 10/10/23 09:00 61 9 L 87/51 94 L 10/10/23 08:45 62 9 L 102/54 97 10/10/23 08:30 63 10 L 102/59 99 10/10/23 08:15 64 10 L 105/54 98 10/10/23 08:00 97.6 F 64 13 98/57 98 10/10/23 07:45 64 9 L 99 10/10/23 07:30 64 18 98 10/10/23 07:15 63 10 L 98 10/10/23 07:00 63 12 101/57 98 10/10/23 06:30 63 12 104/66 98 10/10/23 06:00 64 8 L 98/58 98 10/10/23 05:30 63 10 L 99/57 99 10/10/23 05:00 96.6 F L 64 12 98/55 98 10/10/23 04:30 64 14 93/55 97 10/10/23 04:00 96.6 F L 65 16 99/59 97 10/10/23 03:30 67 7 L 99/58 97 10/10/23 03:00 67 18 100/60 97 10/10/23 02:30 65 8 L 98/55 97 10/10/23 02:00 67 18 98/55 97 10/10/23 01:30 65 8 L 107/66 97 10/10/23 01:00 65 10 L 97/69 98 10/10/23 00:38 67 11 L 122/74 98 10/10/23 00:30 67 14 105/58 98 10/10/23 00:00 95.9 F L 69 18 120/70 98 10/09/23 23:30 65 12 109/74 98 10/09/23 23:28 68 10/09/23 23:15 65 10/09/23 23:00 95.9 F L 62 18 90/54 99 10/09/23 22:30 84/51 10/09/23 22:23 84/51 10/09/23 22:03 96.8 F L 63 21 91/52 97 10/09/23 21:33 97.1 F L 63 22 100/67 98 10/09/23 18:45 97.9 F 62 18 98/49 98 10/09/23 18:30 97.9 F 62 18 91/52 96 10/09/23 18:15 97.9 F 64 18 101/63 98 10/09/23 18:00 97.9 F 65 16 109/65 97 10/09/23 17:48 97.9 F 64 16 107/58 97 10/09/23 17:15 98.1 F 64 16 109/61 96 10/09/23 17:00 97.5 F L 62 16 103/62 97 10/09/23 16:45 97.3 F L 61 16 96/56 94 L 10/09/23 16:30 97.0 F L 60 16 95/53 95 10/09/23 16:13 97.8 F 60 16 95/51 95 10/09/23 15:59 96.3 F L 58 L 16 87/48 97 10/09/23 15:19 57 L 20 86/49 95 10/09/23 15:00 57 L 94 H 90/50 95 10/09/23 13:57 93.4 F L 52 L 16 89/56 96 10/09/23 13:54 93.2 F L 58 L 22 87/57 95 10/09/23 13:33 92.7 F L 57 L 20 87/55 97 10/09/23 13:05 91.9 F L 47 L 16 78/78 98 Intake and Output 10/09/23 10/10/23 10/10/23 22:59 06:59 14:59 Intake Total 10 208.533 691.279 Output Total 30 40 30 Balance -20 168.533 661.279 Intake: IV 10 70 475 .9 kvo 10 70 Dextrose 5% in Water 1, 400 000 ml @ 100 mls/hr IV . [id number] [facility] with Sodium Bicarb (1 Meq/ml) 150 ml Rx#:[id number] Sodium Chloride 0.9% 1, 75 000 ml @ 75 mls/hr IV . [id number] [facility] Rx#:[id number] Intake, IV Titration 138.533 116.279 Amount Norepinephrine 32 mg In 11.424 Sodium Chloride 0.9% 218 ml @ 0.05 MCG/KG/MIN 1.68 mls/hr IV .Q24H [facility] Rx#: [id number] Norepinephrine 4 mg In 52.109 41.279 Sodium Chloride 0.9% 250 ml @ 0.03 MCG/KG/MIN 8. 192 mls/hr IV .Q24H [facility] Rx#:[id number] Sodium Chloride 0.9% 1, 75 75 000 ml @ 75 mls/hr IV . [id number] [facility] Rx#:[id number] Oral 100 Output: Urine 30 40 30 Other: Voiding Method Indwelling Catheter Weight 78.9 kg patient is sleeping. She is arousable but does not communicate much. Examination of the heart S1 and S2 Examination of the lungs bilateral breath sounds are heard Abdomen is soft nontender Examination of lower extremities shows edema trace bilaterally Results - Lab Results Most recent lab results Calcium 6.1 mg/dL (8.4-10.2) L* 10/10/23 03:17 Magnesium 2.4 mg/dL (1.6-2.3) H 10/09/23 11:46 10/10/23 03:17 10/10/23 03:17 Assessment and Plan Assessment: 1. Acute kidney injury ATN, oliguric secondary to hypotension and sepsis. Patient has history of acute kidney injury requiring hemodialysis during her last admission. If she remains oliguric and hyperkalemic patient will need to be dialyzed again. 2. Hypotension from sepsis 3. Sepsis likely underlying UTI 4. Non-gap metabolic acidosis maintained on bicarb drip. Etiology acute kidney injury. 5. Hyperkalemia associated with acute kidney injury and metabolic acidosis 6. History of cardiac arrest during her last admission Plan: continue with bicarb drip. Repeat potassium this afternoon. If patient remains oliguric and hyperkalemic she will need to be dialyzed again. continue empiric antibiotics and pressors. Next Thank you for the consultation. We will continue to follow the patient with you during her hospitalization.
[2023-10-10 13:19] LABS: Glucose,Whole Blood 126 mg/dL (70-110)
[2023-10-10 13:25] LABS: African American GFR (CKD) 13 (>60 ml/min/1.73 sqM); Anion Gap 13 mmol/L; Carbon Dioxide 13 mmol/L (22-30); Chloride 111 mmol/L (98-107); Glucose 109 mg/dL (74-99); Non-African American GFR(CKD) 11 (>60 ml/min/1.73 sqM); Potassium 5.7 mmol/L (3.5-5.1); Sodium 137 mmol/L (137-145)
[2023-10-10 13:41] LABS: Blood Urea Nitrogen 127 mg/dL (7-17); Calcium 6.1 mg/dL (8.4-10.2)
--- NOTE | 2023-10-10 14:34 | P.GSCN ---
History of Present Illness Consult date: 10/10/23 History of present illness: CHIEF COMPLAINT: Worsening renal function HISTORY OF PRESENT ILLNESS: This is a 58-year-old who presented to the hospital with worsening kidney function with vomiting and hypotension. Patient is admitted to the ICU. She is currently off over the Levophed. Patient also being treated for possible UTI with recent UTI with E. coli. Patient had a recent prolonged hospitalization from August 18 to September 26. She had 2 cardiopulmonary arrests. Patient respiratory failure requiring intubation. She was treated for an acute CHF exacerbation, respiratory failure and ischemic cardiomyopathy and had metabolic encephalopathy. Surgical service evaluated her during that admission for a GI bleed in which she was found to have gastritis. Surgical service has been consulted for rectal prolapse. Patient is having bowel movements. Denies any rectal pain. PAST MEDICAL HISTORY: Diabetes Mellitus, Hyperlipidemia, Hypertension, Renal Disease Coronary disease with cardiac stent in May 2023 PAST SURGICAL HISTORY: See below MEDICATIONS: See below ALLERGIES: See below SOCIAL HISTORY: No illicit drug use. REVIEW OF SYSTEMS: CONSTITUTIONAL: Denies fever or chills. HEENT: Denies blurred vision, vision changes, or eye pain. Denies hemoptysis CARDIOVASCULAR: Denies chest pain or pressure. RESPIRATORY: No shortness of breath. GASTROINTESTINAL: See HPI for pertinent findings HEMATOLOGIC: Denies bleeding disorders. GENITOURINARY: Denies any blood in urine or increased urinary frequency. SKIN: Denies pruitis. Denies rash. PHYSICAL EXAM: VITAL SIGNS: Reviewed GENERAL: Well-developed in no acute distress. HEENT: No sclera icterus. Extraocular movements grossly intact. Moist buccal mucosa. Head is atraumatic, normocephalic. No nasal drainage. ABDOMEN: Soft. Nondistended. Nontender NEUROLOGIC: lethargic Rectal: Rectum is prolapsed about 2 inches. it is soft, reducible and pink in color LABORATORY DATA: WBC 6.8 Hgb 7.8 platelets 128 Sodium 137 potassium 5.7 creatinine 4.03 IMAGING: ASSESSMENT: 1. Rectal prolapse 2. Acute on chronic renal failure 3. Hyperkalemia 4. UTI with hypotension 5. History of coronary disease with cardiac stent placed in May 2023 PLAN: -Plan for repair of rectal prolapse on 10/14/2023 if patient is medically stable -Placed Plavix on hold for possible surgical intervention -Continue ICU management -Continue supportive care Physician Food Safety Manager note has been reviewed by physician. Signing provider agrees with the documented findings, assessment, and plan of care. Past Medical History Past Medical History: Diabetes Mellitus, Hyperlipidemia, Hypertension, Renal Disease Additional Past Medical History / Comment(s): restless leg, neurothopy, Guillain-[place], dialysis History of Any Multi-Drug Resistant Organisms: None Reported Past Surgical History: Orthopedic Surgery, Tonsillectomy Additional Past Surgical History / Comment(s): "plate in left leg to straighten leg as a child" - plate removed, right total hip replacement due to a fracture from a fall, dialysis Past Anesthesia/Blood Transfusion Reactions: No Reported Reaction Past Psychological History: No Psychological Hx Reported Smoking Status: Former smoker Past Alcohol Use History: None Reported Past Drug Use History: None Reported Medications and Allergies Home Medications Medication Instructions Recorded Confirmed Type rOPINIRole HCL [Requip] 1 mg PO HS 04/17/23 10/09/23 History Aspirin 81 mg PO DAILY 90 Days #90 tab 06/25/23 10/09/23 Rx Acetaminophen Tab [Tylenol] 650 mg PO Q6HR PRN tab 09/27/23 10/09/23 Rx Bumetanide [BUMEX] 1 mg PO DAILY tab 09/27/23 10/09/23 Rx Clopidogrel [Plavix] 75 mg PO DAILY tab 09/27/23 10/09/23 Rx Docusate [Colace] 100 mg PO BID cap 09/27/23 10/09/23 Rx Fluticasone Nasal [place] [Flonase 2 spray EA NOSTRIL DAILY ml 09/27/23 10/09/23 Rx Nasal [place]] Folic Acid 1 mg PO DAILY tab 09/27/23 10/09/23 Rx Isosorbide Mononitrate ER [Imdur] 30 mg PO DAILY tab 09/27/23 10/09/23 Rx Lidocaine 4% Patch 1 patch TOPICAL DAILY patch 09/27/23 10/09/23 Rx Melatonin 5 mg PO HS tab 09/27/23 10/09/23 Rx Metoprolol Succinate (ER) [Toprol 12.5 mg PO DAILY tab 09/27/23 10/09/23 Rx XL] Spironolactone [Aldactone] 12.5 mg PO DAILY tab 09/27/23 10/09/23 Rx Thiamine [Vitamin B-1] 100 mg PO DAILY tab 09/27/23 10/09/23 Rx fluPHENAZine [Prolixin] 5 mg PO Q6HR PRN tab 09/27/23 10/09/23 Rx hydrALAZINE HCL [Apresoline] 25 mg PO TID tab 09/27/23 10/09/23 Rx rOPINIRole HCL [Requip] 1 mg PO HS PRN tab 09/27/23 10/09/23 Rx DULoxetine HCL [Cymbalta] 20 mg PO DAILY 10/09/23 10/09/23 History Dapagliflozin Propanediol [Farxiga] 5 mg PO DAILY 10/09/23 10/09/23 History Darbepoetin Frantz [Aranesp] 40 mcg SQ SA 10/09/23 10/09/23 History Dextrose Chew [Glucose Chew Tab] 4 gm PO DIRECTED PRN 10/09/23 10/09/23 History Healthshake 1 dose PO BID 10/09/23 10/09/23 History Ipratropium-Albuterol Nebulize 3 ml INHALATION RT-Q6H PRN 10/09/23 10/09/23 History [Duoneb 0.5 mg-3 mg/3 ml Soln] Multivitamins, Thera [Multivitamin 1 tab PO DAILY 10/09/23 10/09/23 History (formulary)] Sodium Chloride [Saline Mist] 2 spray EA NOSTRIL TID 10/09/23 10/09/23 History amLODIPine [Norvasc] 5 mg PO DAILY 10/09/23 10/09/23 History risperiDONE [RisperDAL] 2 mg PO BID 10/09/23 10/09/23 History Allergies Allergy/AdvReac Type Severity Reaction Status Date / Time No Known Allergies Allergy Verified 10/09/23 11:40 Surgical - Exam Vital Signs Pulse Resp BP Pulse Ox 59 L 17 85/59 100 10/09/23 10:37 10/09/23 10:37 10/09/23 10:37 10/09/23 10:37 Results - Labs 10/10/23 03:17 10/10/23 12:51 Abnormal Lab Results - Last 24 Hours (Table) 10/09/23 10/09/23 10/09/23 Range/Units 11:46 14:13 18:58 RBC (3.80-5.40) m/uL Hgb (11.4-16.0) gm/dL Hct (34.0-46.0) % MCHC (31.0-37.0) g/dL RDW (11.5-15.5) % Plt Count (150-450) k/uL Lymphocytes # (1.0-4.8) k/uL Sodium (137-145) mmol/L Potassium (3.5-5.1) mmol/L Chloride (98-107) mmol/L Carbon Dioxide (22-30) mmol/L BUN (7-17) mg/dL Creatinine (0.52-1.04) mg/dL Glucose (74-99) mg/dL POC Glucose (mg/dL) (70-110) mg/dL Hemoglobin A1c (<=6.0) % Calcium (8.4-10.2) mg/dL Ionized Calcium [place] 3.7 L (4.5-5.3) mg/dL Procalcitonin (0.02-0.09) ng/mL Free T3 pg/mL 1.10 L (2.30-4.20) pg/mL Urine Appearance Turbid H (Clear) Urine Protein 2+ H (Negative) Urine Blood Large H (Negative) Ur Leukocyte Esterase Large H (Negative) Urine RBC >182 H (0-5) /hpf Urine WBC >182 H (0-5) /hpf Urine WBC Clumps Many H (None) /hpf Ur Squamous Epith Cells 19 H (0-4) /hpf Urine Bacteria Many H (None) /hpf 10/09/23 10/10/23 10/10/23 Range/Units 19:29 03:17 03:17 RBC 2.64 L (3.80-5.40) m/uL Hgb 7.8 L (11.4-16.0) gm/dL Hct 25.7 L (34.0-46.0) % MCHC 30.4 L (31.0-37.0) g/dL RDW 18.4 H (11.5-15.5) % Plt Count 128 L (150-450) k/uL Lymphocytes # 0.7 L (1.0-4.8) k/uL Sodium 136 L (137-145) mmol/L Potassium 6.5 H* (3.5-5.1) mmol/L Chloride 113 H (98-107) mmol/L Carbon Dioxide 8 L* (22-30) mmol/L BUN 129 H* (7-17) mg/dL Creatinine 3.73 H (0.52-1.04) mg/dL Glucose (74-99) mg/dL POC Glucose (mg/dL) (70-110) mg/dL Hemoglobin A1c 6.4 H (<=6.0) % Calcium 6.2 L* (8.4-10.2) mg/dL Ionized Calcium [place] (4.5-5.3) mg/dL Procalcitonin (0.02-0.09) ng/mL Free T3 pg/mL (2.30-4.20) pg/mL Urine Appearance (Clear) Urine Protein (Negative) Urine Blood (Negative) Ur Leukocyte Esterase (Negative) Urine RBC (0-5) /hpf Urine WBC (0-5) /hpf Urine WBC Clumps (None) /hpf Ur Squamous Epith Cells (0-4) /hpf Urine Bacteria (None) /hpf 10/10/23 10/10/23 10/10/23 Range/Units 03:17 03:18 06:35 RBC (3.80-5.40) m/uL Hgb (11.4-16.0) gm/dL Hct (34.0-46.0) % MCHC (31.0-37.0) g/dL RDW (11.5-15.5) % Plt Count (150-450) k/uL Lymphocytes # (1.0-4.8) k/uL Sodium (137-145) mmol/L Potassium 5.7 H (3.5-5.1) mmol/L Chloride 112 H (98-107) mmol/L Carbon Dioxide 14 L (22-30) mmol/L BUN 123 H* (7-17) mg/dL Creatinine 3.90 H (0.52-1.04) mg/dL Glucose 70 L (74-99) mg/dL POC Glucose (mg/dL) (70-110) mg/dL Hemoglobin A1c (<=6.0) % Calcium 6.1 L* (8.4-10.2) mg/dL Ionized Calcium [place] 3.7 L (4.5-5.3) mg/dL Procalcitonin 0.32 H (0.02-0.09) ng/mL Free T3 pg/mL (2.30-4.20) pg/mL Urine Appearance (Clear) Urine Protein (Negative) Urine Blood (Negative) Ur Leukocyte Esterase (Negative) Urine RBC (0-5) /hpf Urine WBC (0-5) /hpf Urine WBC Clumps (None) /hpf Ur Squamous Epith Cells (0-4) /hpf Urine Bacteria (None) /hpf 10/10/23 Range/Units 13:17 RBC (3.80-5.40) m/uL Hgb (11.4-16.0) gm/dL Hct (34.0-46.0) % MCHC (31.0-37.0) g/dL RDW (11.5-15.5) % Plt Count (150-450) k/uL Lymphocytes # (1.0-4.8) k/uL Sodium (137-145) mmol/L Potassium (3.5-5.1) mmol/L Chloride (98-107) mmol/L Carbon Dioxide (22-30) mmol/L BUN (7-17) mg/dL Creatinine (0.52-1.04) mg/dL Glucose (74-99) mg/dL POC Glucose (mg/dL) 126 H (70-110) mg/dL Hemoglobin A1c (<=6.0) % Calcium (8.4-10.2) mg/dL Ionized Calcium [place] (4.5-5.3) mg/dL Procalcitonin (0.02-0.09) ng/mL Free T3 pg/mL (2.30-4.20) pg/mL Urine Appearance (Clear) Urine Protein (Negative) Urine Blood (Negative) Ur Leukocyte Esterase (Negative) Urine RBC (0-5) /hpf Urine WBC (0-5) /hpf Urine WBC Clumps (None) /hpf Ur Squamous Epith Cells (0-4) /hpf Urine Bacteria (None) /hpf Diabetes panel 10/09/23 10/10/23 10/10/23 Range/Units 19:29 03:17 03:17 Sodium 136 L 138 (137-145) mmol/L Potassium 6.5 H* 5.7 H (3.5-5.1) mmol/L Chloride 113 H 112 H (98-107) mmol/L Carbon Dioxide 8 L* 14 L (22-30) mmol/L BUN 129 H* 123 H* (7-17) mg/dL Creatinine 3.73 H 3.90 H (0.52-1.04) mg/dL Glucose 75 70 L (74-99) mg/dL Hemoglobin A1c 6.4 H (<=6.0) % Calcium 6.2 L* 6.1 L* (8.4-10.2) mg/dL Calcium panel 10/09/23 10/09/23 10/10/23 Range/Units 14:13 19:29 03:17 Calcium 6.2 L* 6.1 L* (8.4-10.2) mg/dL Ionized Calcium [place] 3.7 L (4.5-5.3) mg/dL 10/10/23 Range/Units 06:35 Calcium (8.4-10.2) mg/dL Ionized Calcium [place] 3.7 L (4.5-5.3) mg/dL Pituitary panel 10/09/23 10/10/23 Range/Units 19:29 03:17 Sodium 136 L 138 (137-145) mmol/L Potassium 6.5 H* 5.7 H (3.5-5.1) mmol/L Chloride 113 H 112 H (98-107) mmol/L Carbon Dioxide 8 L* 14 L (22-30) mmol/L BUN 129 H* 123 H* (7-17) mg/dL Creatinine 3.73 H 3.90 H (0.52-1.04) mg/dL Glucose 75 70 L (74-99) mg/dL Calcium 6.2 L* 6.1 L* (8.4-10.2) mg/dL Adrenal panel 10/09/23 10/10/23 Range/Units 19:29 03:17 Sodium 136 L 138 (137-145) mmol/L Potassium 6.5 H* 5.7 H (3.5-5.1) mmol/L Chloride 113 H 112 H (98-107) mmol/L Carbon Dioxide 8 L* 14 L (22-30) mmol/L BUN 129 H* 123 H* (7-17) mg/dL Creatinine 3.73 H 3.90 H (0.52-1.04) mg/dL Glucose 75 70 L (74-99) mg/dL Calcium 6.2 L* 6.1 L* (8.4-10.2) mg/dL
--- NOTE | 2023-10-10 14:35 | CDI ---
Documentation Clarification Form Date: 10/10/2023 02:10:04 PM From: Chelle Dean RN CCDS Phone: [phone] Admit Date: 10/09/2023 03:23:00 PM Patient Name: Chelle Lin Visit Number: [id number] Discharge Date: ATTENTION: The Clinical Documentation Specialists (CDI) and [facility] Coding Staff appreciate your assistance in clarifying documentation. Please respond to the clarification below the line at the bottom and electronically sign. The CDI & [facility] Coding staff will review the response and follow-up if needed. Please note: Queries are made part of the Legal Health Record. If you have any questions, please contact the author of this message via ITS. Dr Bran Clifford Sepsis is documented 10/09, Nephrology consult. Based on this information and the findings below, is there an additional diagnosis that is clinically appropriate for this patient? History/Risk Factors: 58-year old female presenting [facility] with concerns for worsening renal function. Medical history: Cardiac arrest, CHF, CKD IIIb, Right heel pressure ulcer stage III, DM2, COPD and Severe pulmonary hypertension. 10/09 HP Clinical Indicators: WBC, 10/08: 4.3 Lactic acid, 10/08: 0.6 Cr, 10/08: 3.72 UA, 10/08: pH Turbid, Protein 2+, Blood large, Leukocytosis esterase large, WBC >182 Vitals signs, 10/08: B/P 85/59; HR 59; RR 17; Temp 91.7F Rectal; SpO2 100% 2L nasal cannula Nephrology consult, 10/09: Acute kidney injury ATN, oliguric secondary to hypotension and sepsis. Sepsis, likely underlying UTI. Treatment: 10/08 10/08 Norepinephrine 32mg IV 250mls @1.68mls/hr; 10/08 Norepinephrine 4mg 254mls@ 8.192mls/hr; Antibiotics: 10/08 Ceftriaxone 1gm IVPB Q24H; 10/08 Azithromycin 500mg IVPB x 1; IV Fluids: 10/08 0.9ns 2L bolus Is there an additional diagnosis that is clinically appropriate for this patient? [x ] Sepsis, present on admission [ ] Severe Sepsis with organ failure present on admission [ ] Sepsis ruled out [ ] Other, please specify [ ] Unable to determine SIRS Criteria: 2 or more of the following may indicate SIRS Temperature < 96.8F (36C) or > 101.0F (38.3C) Heart Rate > 90 bpm Respiratory Rate > 20 breaths/min or PaCO2 < 32 mmHg White Blood Cell Count > 12,000 or < 4,000 cells/mm3 or > 10% bands (Template Last Reviewed: April 2022) MTDD
[2023-10-10] MEDS: FLUTICASONE NASAL 50MCG/SPRAY 16GM BTL EA NOSTRIL SCH (15:27)
[2023-10-10] MEDS: FUROSEMIDE 10 MG/ML 10 ML VIAL IV STA ×2 (15:27→22:18)
[2023-10-10 17:42] LABS: Glucose,Whole Blood 141 mg/dL (70-110)
[2023-10-10 20:23] LABS: Glucose,Whole Blood 135 mg/dL (70-110)
[2023-10-11] MEDS: ONDANSETRON 4 MG/2 ML VIAL IVP PRN (00:50)
[2023-10-11] MEDS: ACETAMINOPHEN TAB 325 MG TAB PO PRN (01:45)
[2023-10-11 04:56] LABS: African American GFR (CKD) 14 (>60 ml/min/1.73 sqM); Anion Gap 11 mmol/L; Carbon Dioxide 17 mmol/L (22-30); Chloride 108 mmol/L (98-107); Glucose 150 mg/dL (74-99); Non-African American GFR(CKD) 12 (>60 ml/min/1.73 sqM); Potassium 5.1 mmol/L (3.5-5.1); Sodium 136 mmol/L (137-145)
[2023-10-11 05:00] LABS: Anisocytosis Slight; Basophils % (A) 1 %; Eosinophils # (A) 0.1 k/uL (0-0.7); Eosinophils % (A) 3 %; HCT 27.5 % (34.0-46.0); Hypochromasia Marked; Lymphocytes # (A) 0.7 k/uL (1.0-4.8); Lymphocytes % (A) 15 %; MCH 28.3 pg (25.0-35.0); MCHC 29.1 g/dL (31.0-37.0); MCV 97.4 fL (80.0-100.0); Macrocytosis Slight; Mean Platelet Volume 9.1; Monocytes # (A) 0.4 k/uL (0-1.0); Monocytes % (A) 8 %; Neutrophils # (A) 3.3 k/uL (1.3-7.7); Neutrophils % (A) 69 %; Poikilocytosis Slight; RBC 2.82 m/uL (3.80-5.40); RDW 18.4 % (11.5-15.5); WBC 4.7 k/uL (3.8-10.6)
[2023-10-11 05:01] LABS: Platelet Count 97 k/uL (150-450)
[2023-10-11 05:16] LABS: Blood Urea Nitrogen 119 mg/dL (7-17); Calcium 5.9 mg/dL (8.4-10.2)
[2023-10-11 07:01] LABS: Glucose,Whole Blood 182 mg/dL (70-110)
[2023-10-11] MEDS: CALCIUM GLUCONATE IN NACL 1 GM in SALINE 1 100ML.BAG IVPB ONE (07:06)
[2023-10-11] MEDS: SODIUM BICARBONATE TAB 650 MG TAB PO SCH (10:55)
[2023-10-11] MEDS: FUROSEMIDE 10 MG/ML 10 ML VIAL IV STA (10:55)
[2023-10-11 11:51] LABS: Glucose,Whole Blood 208 mg/dL (70-110)
--- NOTE | 2023-10-11 12:03 | P.PN ---
Subjective Progress Note Date: 10/11/23 CHIEF COMPLAINT: Worsening renal function UTI HISTORY OF PRESENT ILLNESS: Patient admitted to the ICU with UTI and hypotension and worsening renal function. She remains off of Levophed. Surgical service consulted for rectal prolapse. Per nursing staff the rectal prolapse has been in and out. Patient denies any abdominal pain. Denies any rectal pain. She has been having bowel movements. BP 113/70 WBC 4.7 Hgb 8.0 PLT 97 sodium 136 potassium 5.1 creatinine 3.89. Patient does have a bedside sitter PHYSICAL EXAM: VITAL SIGNS: Reviewed. GENERAL: no acute distress. ABDOMEN: Soft. Nondistended. Nontender. NEUROLOGIC: awake and responding to questions ASSESSMENT: 1. Rectal prolapse 2. Acute on chronic renal failure 3. Hyperkalemia 4. UTI with hypotension 5. History of coronary disease with cardiac stent placed in May 2023 PLAN: -Plan for repair of rectal prolapse/lower anterior resection on 10/14/2023 if patient is medically stable -Patient to start bowel prep on Saturday with clear liquid diet in preparation for surgery -Placed Plavix on hold for possible surgical intervention -Continue supportive care -Continue to monitor labs. Platelets are currently 97 Physician Wellness Rn note has been reviewed by physician. Signing provider agrees with the documented findings, assessment, and plan of care. Objective - Vital Signs Vital signs: Vital Signs Temp 94.0 F L 10/11/23 09:00 Pulse 60 10/11/23 11:00 Resp 17 10/11/23 11:00 BP 113/70 10/11/23 11:00 Pulse Ox 100 10/11/23 11:00 FiO2 Intake & Output 10/10/23 10/11/23 10/11/23 18:59 06:59 18:59 Intake Total 8019.414 9264 602 Output Total 135 445 155 Balance 1556.279 955 447 Weight 77.6 kg Intake: IV 1075 1200 380 Dextrose 5% in Water 1, 1000 1200 380 000 ml @ 40 mls/hr IV . Q24H RYLIE with Sodium Bicarb (1 Meq/ml) 150 ml Rx#:[id number] Sodium Chloride 0.9% 1, 75 000 ml @ 75 mls/hr IV . [id number] RYLIE Rx#:[id number] Intake, IV Titration 116.279 Amount Norepinephrine 4 mg In 41.279 Sodium Chloride 0.9% 250 ml @ 0.03 MCG/KG/MIN 8. 192 mls/hr IV .Q24H RYLIE Rx#:[id number] Sodium Chloride 0.9% 1, 75 000 ml @ 75 mls/hr IV . [id number] [facility] Rx#:[id number] Oral 500 200 222 Output: Urine 135 445 155 Other: Voiding Method Indwelling Catheter Indwelling Catheter # Bowel Movements 1 - Labs CBC & Chem 7: 10/11/23 03:57 10/11/23 03:57 Labs: Abnormal Lab Results - Last 24 Hours (Table) 10/10/23 10/10/23 10/10/23 Range/Units 12:51 13:17 17:40 RBC (3.80-5.40) m/uL Hgb (11.4-16.0) gm/dL Hct (34.0-46.0) % MCHC (31.0-37.0) g/dL RDW (11.5-15.5) % Plt Count (150-450) k/uL Lymphocytes # (1.0-4.8) k/uL Sodium (137-145) mmol/L Potassium 5.7 H (3.5-5.1) mmol/L Chloride 111 H (98-107) mmol/L Carbon Dioxide 13 L (22-30) mmol/L BUN 127 H* (7-17) mg/dL Creatinine 4.03 H (0.52-1.04) mg/dL Glucose 109 H (74-99) mg/dL POC Glucose (mg/dL) 126 H 141 H (70-110) mg/dL Calcium 6.1 L* (8.4-10.2) mg/dL 10/10/23 10/10/23 10/11/23 Range/Units 20:21 20:52 03:57 RBC 2.82 L (3.80-5.40) m/uL Hgb 8.0 L (11.4-16.0) gm/dL Hct 27.5 L (34.0-46.0) % MCHC 29.1 L (31.0-37.0) g/dL RDW 18.4 H (11.5-15.5) % Plt Count 97 L (150-450) k/uL Lymphocytes # 0.7 L (1.0-4.8) k/uL Sodium (137-145) mmol/L Potassium 5.6 H (3.5-5.1) mmol/L Chloride (98-107) mmol/L Carbon Dioxide (22-30) mmol/L BUN (7-17) mg/dL Creatinine (0.52-1.04) mg/dL Glucose (74-99) mg/dL POC Glucose (mg/dL) 135 H (70-110) mg/dL Calcium (8.4-10.2) mg/dL 10/11/23 10/11/23 10/11/23 Range/Units 03:57 06:59 11:49 RBC (3.80-5.40) m/uL Hgb (11.4-16.0) gm/dL Hct (34.0-46.0) % MCHC (31.0-37.0) g/dL RDW (11.5-15.5) % Plt Count (150-450) k/uL Lymphocytes # (1.0-4.8) k/uL Sodium 136 L (137-145) mmol/L Potassium (3.5-5.1) mmol/L Chloride 108 H (98-107) mmol/L Carbon Dioxide 17 L (22-30) mmol/L BUN 119 H* (7-17) mg/dL Creatinine 3.89 H (0.52-1.04) mg/dL Glucose 150 H (74-99) mg/dL POC Glucose (mg/dL) 182 H 208 H (70-110) mg/dL Calcium 5.9 L* (8.4-10.2) mg/dL Microbiology - Last 24 Hours (Table) 10/09/23 16:02 Blood Culture - Preliminary Blood 10/09/23 18:58 Urine Culture - Preliminary Urine,Voided
--- NOTE | 2023-10-11 15:35 | P.PN ---
Subjective Progress Note Date: 10/11/23 Patient is a 58-year-old white female with multiple medical comorbidities including coronary artery disease with previous PCI/stenting and [place], cardiomyopathy, pulmonary hypertension, systemic hypertension, hyperlipidemia, diabetes mellitus, chronic leg wounds, COPD, chronic kidney disease, among other things. Of note, she had a recent prolonged and complicated hospital stay 08/19/2023 through 09/27/2023. During this time, she did have a cardiopulmonary arrest and a prolonged stay in the intensive care unit. She was temporarily intubated following the cardiac arrest. She did develop acute renal failure and had temporary hemodialysis during her stay. Hemodialysis catheter has since been removed. She was eventually discharged to [facility] on 09/27/2023. She has been altered and confused. Possibly encephalopathic, and an overall poor historian. Patient was sent back in from the retirement with abnormal labs and concerns for worsening renal function and hyperkalemia. Potassium is noted to be 6 initially on arrival. EKG on arrival shows sinus bradycardia 55 bpm. No hyperacute T waves or QRS widening. While in the emergency department, she was noted to be hypotensive, fluid resuscitated with 2 L of normal saline bolus, and then started on low-dose norepinephrine. A right femoral central line was inserted by the ER physician. Patient is currently in the intensive care unit on my evaluation. She is currently responsive to verbal stimuli, will wake up, and then falls back asleep. Information obtained not consistent for accurate interview. She believes she is at a friend's house. She is hypothermic, and has an external warming blanket on. Most recent temperature 35.4 C. She is currently on 3 L/min nasal cannula. SpO2 is 97%. Chest x-ray shows cardiomegaly with interstitial prominence and possible trace bilateral pleural effusions. There is a stable left lower lobe consolidation and or atelectasis. Overall picture more consistent with mild CHF. Patient does have a history of ischemic cardiomyopathy. Most recent echocardiogram done on 08/26/2023 shows an improvement, in the patient's previously severely reduced left ventricular ejection fraction, to 55 to 60%. Norepinephrine is currently infusing at 0.05 mcg/kg/min. There is a right femoral central line, with a pulsatile waveform, likely arterial placement, which has since been removed and pressure has been held. Hemostasis has been achieved by nursing staff. Most recent labs include a CBC with a WBC count 4.3, hemoglobin stable at 8 grams per deciliter, hematocrit 27.4, platelets 125. Most recent BMP: Sodium 136, potassium 6.5, chloride 113, serum bicarb 8, BUN 129, creatinine 3.73, glucose 75. I have treated the patient's hyperkalemia with the hyperkalemia protocol including 10 units of regular insulin, 1 amp D50 W, 2 amp sodium bicarbonate, another gram of calcium gluconate, concentrated albuterol. Due to patient being altered, an NG tube was inserted for [facility]. Nephrology has since been involved. Urinalysis positive for bacteria and leukocyte esterase and blood. Concerning for urinary tract infection. Patient did have a urinary tract infection on previous hospital admission, and isolated organism was positive for E. coli. She did come from the [facility] with an indwelling urinary catheter, which has since been replaced. There is a minimal amount of urine output with gross hematuria. She is empirically covered on Rocephin. Renal ultrasound did not show any evidence of hydronephrosis in either kidney. Dr. Ayala has since been called and updated on patient's status. On 10/11/2023, the patient is being seen for a follow-up. The patient is currently on 2 L of oxygen by nasal cannula. NG tube has been removed. She remains on a bicarb infusion and rate has been reduced down to 40 cc an hour. There was concern for fluid overload and based on that the patient was given Lasix yesterday and another dose of Lasix 60 mg IV push was given to her by n ephrology today. Urine output seems to be improving. The patient has produced approximately 580 cc of urine output since morning. Meanwhile, her creatinine is at 3.8 with a BUN of 119. Serum bicarb is at 17. Sodium is at 136 and a potassium level of 5.1. The white count is 4.7 with a hemoglobin of 8 and a platelet count of 97. Blood cultures negative. Urine culture still pending for now. The patient remains on IV Rocephin. The patient is currently on no pressors. She is afebrile. Mental status seems to be stable at this point in time. No other significant events overnight. No agitation. Objective - Vital Signs Vital signs: Vital Signs Temp 97.4 F L 10/11/23 00:00 Pulse 60 10/11/23 08:00 Resp 8 L 10/11/23 08:00 BP 113/73 10/11/23 08:00 Pulse Ox 99 10/11/23 08:00 FiO2 Intake & Output 10/10/23 10/11/23 10/11/23 18:59 06:59 18:59 Intake Total 1155.930 0224 562 Output Total 135 445 140 Balance 1556.279 955 422 Weight 77.6 kg Intake: IV 1075 1200 340 Dextrose 5% in Water 1, 1000 1200 340 000 ml @ 40 mls/hr IV . Q24H RYLIE with Sodium Bicarb (1 Meq/ml) 150 ml Rx#:[id number] Sodium Chloride 0.9% 1, 75 000 ml @ 75 mls/hr IV . [id number] RYLIE Rx#:[id number] Intake, IV Titration 116.279 Amount Norepinephrine 4 mg In 41.279 Sodium Chloride 0.9% 250 ml @ 0.03 MCG/KG/MIN 8. 192 mls/hr IV .Q24H RYLIE Rx#:[id number] Sodium Chloride 0.9% 1, 75 000 ml @ 75 mls/hr IV . [id number] RYLIE Rx#:[id number] Oral 500 200 222 Output: Urine 135 445 140 Other: Voiding Method Indwelling Catheter Indwelling Catheter # Bowel Movements 1 - Exam GENERAL EXAM: Lethargic and altered, responsive to verbal stimuli, 58-year-old white female, fairly comfortable in no apparent distress. Currently on 2 L of oxygen by nasal cannula and, comfortable. HEAD: Normocephalic and atraumatic EYES: Normal reaction of pupils, equal size. NOSE: Clear with pink turbinates. THROAT: No erythema or exudates. Dry mucous membranes NECK: No masses, no JVD. CHEST: No chest wall deformity. LUNGS: Equal air entry with diminished lung sounds bilaterally. On 2 L/min nasal cannula. No conversational dyspnea or accessory muscle use.. CVS: S1 and S2 normal with no audible murmur, regular rhythm. No extra heart sounds ABDOMEN: No hepatosplenomegaly, active bowel sounds, no guarding or rigidity. SPINE: No scoliosis or deformity SKIN: No rashes RECTUM: Complete rectal prolapse, red color CENTRAL NERVOUS SYSTEM: No focal deficits, tone is normal in all 4 extremities. EXTREMITIES: There is mild bilateral lower extremity edema. There is a right heel pressure ulcer, covered with Optifoam dressing. Remote appearing right swann/ankle incisions. No clubbing, or cyanosis. Peripheral pulses are intact. - Labs CBC & Chem 7: 10/11/23 03:57 10/11/23 03:57 Labs: Abnormal Lab Results - Last 24 Hours (Table) 10/10/23 10/10/23 10/10/23 Range/Units 12:51 13:17 17:40 RBC (3.80-5.40) m/uL Hgb (11.4-16.0) gm/dL Hct (34.0-46.0) % MCHC (31.0-37.0) g/dL RDW (11.5-15.5) % Plt Count (150-450) k/uL Lymphocytes # (1.0-4.8) k/uL Sodium (137-145) mmol/L Potassium 5.7 H (3.5-5.1) mmol/L Chloride 111 H (98-107) mmol/L Carbon Dioxide 13 L (22-30) mmol/L BUN 127 H* (7-17) mg/dL Creatinine 4.03 H (0.52-1.04) mg/dL Glucose 109 H (74-99) mg/dL POC Glucose (mg/dL) 126 H 141 H (70-110) mg/dL Calcium 6.1 L* (8.4-10.2) mg/dL 10/10/23 10/10/23 10/11/23 Range/Units 20:21 20:52 03:57 RBC 2.82 L (3.80-5.40) m/uL Hgb 8.0 L (11.4-16.0) gm/dL Hct 27.5 L (34.0-46.0) % MCHC 29.1 L (31.0-37.0) g/dL RDW 18.4 H (11.5-15.5) % Plt Count 97 L (150-450) k/uL Lymphocytes # 0.7 L (1.0-4.8) k/uL Sodium (137-145) mmol/L Potassium 5.6 H (3.5-5.1) mmol/L Chloride (98-107) mmol/L Carbon Dioxide (22-30) mmol/L BUN (7-17) mg/dL Creatinine (0.52-1.04) mg/dL Glucose (74-99) mg/dL POC Glucose (mg/dL) 135 H (70-110) mg/dL Calcium (8.4-10.2) mg/dL 10/11/23 10/11/23 Range/Units 03:57 06:59 RBC (3.80-5.40) m/uL Hgb (11.4-16.0) gm/dL Hct (34.0-46.0) % MCHC (31.0-37.0) g/dL RDW (11.5-15.5) % Plt Count (150-450) k/uL Lymphocytes # (1.0-4.8) k/uL Sodium 136 L (137-145) mmol/L Potassium (3.5-5.1) mmol/L Chloride 108 H (98-107) mmol/L Carbon Dioxide 17 L (22-30) mmol/L BUN 119 H* (7-17) mg/dL Creatinine 3.89 H (0.52-1.04) mg/dL Glucose 150 H (74-99) mg/dL POC Glucose (mg/dL) 182 H (70-110) mg/dL Calcium 5.9 L* (8.4-10.2) mg/dL Microbiology - Last 24 Hours (Table) 10/09/23 16:02 Blood Culture - Preliminary Blood 10/09/23 18:58 Urine Culture - Preliminary Urine,Voided Assessment and Plan Assessment: Hypotension refractory to fluid resuscitation and shock state, rule out sepsis and septic shock. The patient is currently off pressors. In fact, the patient is being diuresed and the risk is being provided by the nephrology team. Urine output is improving. Suspect urinary tract infection and urosepsis, awaiting cultures and the patient remains on IV Rocephin Hypothermia, recovered Acute on chronic kidney disease, previously requiring temporary hemodialysis. Temporary hemodialysis catheter has since been removed. Creatinine is slightly improved compared to yesterday. Severe hyperkalemia, most recent potassium 6.5, treated with the hyperkalemia protocol including 10 units of regular insulin, 1 amp D50 W, 2 amp sodium bicarbonate, another gram of calcium gluconate, concentrated albuterol, and Lokelma. Nephrology has since been involved. Potassium level is within normal limits. Severe non-anion gap metabolic acidosis, secondary to acute on chronic renal failure, currently on a bicarb infusion Altered mental status, suspect acute metabolic encephalopathy secondary to above, improving Acute hypoxemic respiratory failure, currently on 2 L/min nasal cannula, possibly secondary to mild CHF exacerbation with preserved ejection fraction, Chest x-ray shows cardiomegaly with interstitial prominence and possible trace bilateral pleural effusions. There is a stable left lower lobe consolidation and/or atelectasis. Viral panel negative for influenza, RSV, COVID. Anemia of chronic disease, hemoglobin stable Hypocalcemia, being replaced Complete rectal prolapse, previous attempts to replace History of cardiopulmonary arrest, x 2, with cardiopulmonary resuscitation, and return of spontaneous circulation on 08/23/23 History of congestive heart failure (HFPEF) History of coronary artery disease and previous non-ST segment elevation myocardial infarction and PCI/stent to the RCA Stage III chronic kidney disease Right heel pressure ulcer, stage III Subacute fracture of the medial and lateral malleolus History of hypertension History of hyperlipidemia History of type 2 diabetes mellitus History of severe pulmonary hypertension History of COPD Plan: Keep the patient on oxygen 2 L/min nasal cannula Monitor mental status Hemodynamically stable Renal function slightly improved compared to yesterday and a potassium level is also stable Continue IV Lasix per nephrology Bicarb infusion at rate of 40 cc an hour No pressors for now Monitor electrolytes Temperature is stable Keep the patient intensive care unit for another 24 hours and will continue to follow.
[2023-10-11 16:48] LABS: Glucose,Whole Blood 202 mg/dL (70-110)
--- NOTE | 2023-10-11 17:06 | P.PN ---
Subjective Patient is seen for follow-up for acute kidney injury. Urine output has improved with IV Lasix. Serum creatinine slightly better at 3.8 from 4.0 yesterday. BUN has improved as well. There is improvement in metabolic acidosis and potassium is down to 5.1 today.. Patient is communicating today. She does recognize me. Objective - Vital Signs Vital signs: Vital Signs Temp 96.4 F L 10/11/23 13:00 Pulse 66 10/11/23 15:00 Resp 16 10/11/23 15:00 BP 104/69 10/11/23 13:00 Pulse Ox 97 10/11/23 15:00 FiO2 Intake & Output 10/10/23 10/11/23 10/11/23 18:59 06:59 18:59 Intake Total 0241.103 3159 762 Output Total 135 445 330 Balance 1556.279 955 432 Weight 77.6 kg Intake: IV 1075 1200 540 Dextrose 5% in Water 1, 1000 1200 540 000 ml @ 40 mls/hr IV . Q24H RYLIE with Sodium Bicarb (1 Meq/ml) 150 ml Rx#:[id number] Sodium Chloride 0.9% 1, 75 000 ml @ 75 mls/hr IV . [id number] RYLIE Rx#:[id number] Intake, IV Titration 116.279 Amount Norepinephrine 4 mg In 41.279 Sodium Chloride 0.9% 250 ml @ 0.03 MCG/KG/MIN 8. 192 mls/hr IV .Q24H RYLIE Rx#:[id number] Sodium Chloride 0.9% 1, 75 000 ml @ 75 mls/hr IV . [id number] RYLIE Rx#:[id number] Oral 500 200 222 Output: Urine 135 445 330 Other: Voiding Method Indwelling Catheter Indwelling Catheter Indwelling Catheter # Bowel Movements 1 - Exam patient is awake. She does recognize me. Answers questions appropriately. Examination of the heart S1 and S2 Examination of the lungs bilateral breath sounds are heard Abdomen is soft nontender Examination of lower extremities shows edema 1+ bilaterally CLINICAL AUDIOLOGIST exam shows patient is moving all 4 extremities. - Labs CBC & Chem 7: 10/11/23 03:57 10/11/23 03:57 Labs: Abnormal Lab Results - Last 24 Hours (Table) 10/10/23 10/10/23 10/10/23 Range/Units 17:40 20:21 20:52 RBC (3.80-5.40) m/uL Hgb (11.4-16.0) gm/dL Hct (34.0-46.0) % MCHC (31.0-37.0) g/dL RDW (11.5-15.5) % Plt Count (150-450) k/uL Lymphocytes # (1.0-4.8) k/uL Sodium (137-145) mmol/L Potassium 5.6 H (3.5-5.1) mmol/L Chloride (98-107) mmol/L Carbon Dioxide (22-30) mmol/L BUN (7-17) mg/dL Creatinine (0.52-1.04) mg/dL Glucose (74-99) mg/dL POC Glucose (mg/dL) 141 H 135 H (70-110) mg/dL Calcium (8.4-10.2) mg/dL 10/11/23 10/11/23 10/11/23 Range/Units 03:57 03:57 06:59 RBC 2.82 L (3.80-5.40) m/uL Hgb 8.0 L (11.4-16.0) gm/dL Hct 27.5 L (34.0-46.0) % MCHC 29.1 L (31.0-37.0) g/dL RDW 18.4 H (11.5-15.5) % Plt Count 97 L (150-450) k/uL Lymphocytes # 0.7 L (1.0-4.8) k/uL Sodium 136 L (137-145) mmol/L Potassium (3.5-5.1) mmol/L Chloride 108 H (98-107) mmol/L Carbon Dioxide 17 L (22-30) mmol/L BUN 119 H* (7-17) mg/dL Creatinine 3.89 H (0.52-1.04) mg/dL Glucose 150 H (74-99) mg/dL POC Glucose (mg/dL) 182 H (70-110) mg/dL Calcium 5.9 L* (8.4-10.2) mg/dL 10/11/23 10/11/23 Range/Units 11:49 16:47 RBC (3.80-5.40) m/uL Hgb (11.4-16.0) gm/dL Hct (34.0-46.0) % MCHC (31.0-37.0) g/dL RDW (11.5-15.5) % Plt Count (150-450) k/uL Lymphocytes # (1.0-4.8) k/uL Sodium (137-145) mmol/L Potassium (3.5-5.1) mmol/L Chloride (98-107) mmol/L Carbon Dioxide (22-30) mmol/L BUN (7-17) mg/dL Creatinine (0.52-1.04) mg/dL Glucose (74-99) mg/dL POC Glucose (mg/dL) 208 H 202 H (70-110) mg/dL Calcium (8.4-10.2) mg/dL Microbiology - Last 24 Hours (Table) 10/09/23 16:02 Blood Culture - Preliminary Blood 10/09/23 18:58 Urine Culture - Preliminary Urine,Voided Assessment and Plan Assessment: 1. Acute kidney injury ATN, oliguric secondary to hypotension and sepsis. Patient has history of acute kidney injury requiring hemodialysis during her last admission. Renal function has improved along with improvement in hyperkalemia. We will hold off on dialysis for now. 2. Hypotension from sepsis 3. Sepsis likely underlying UTI 4. Non-gap metabolic acidosis maintained on bicarb drip. Etiology acute kidney injury. 5. Hyperkalemia associated with acute kidney injury and metabolic acidosis 6. History of cardiac arrest during her last admission Plan: continue with bicarb drip. Decrease rate to 40 cc an hour and possibly DC in a.m. Add oral sodium bicarb Repeat IV Lasix Repeat labs in a.m. Hold hemodialysis for now. Repeat chest x-ray in a.m.
[2023-10-11] MEDS: FUROSEMIDE 10 MG/ML 10 ML VIAL IV ONE (19:05)
[2023-10-11 20:29] LABS: Glucose,Whole Blood 164 mg/dL (70-110)
[2023-10-12 06:09] LABS: Glucose,Whole Blood 145 mg/dL (70-110)
[2023-10-12] MEDS: LEVOTHYROXINE 75 MCG TAB PO SCH (06:22)
--- NOTE | 2023-10-12 08:23 | P.PN ---
Progress Note - Text Progress Note Date: 10/12/23 CHIEF COMPLAINT: Worsening renal function UTI HISTORY OF PRESENT ILLNESS: NAEO PHYSICAL EXAM: VITAL SIGNS: Reviewed. GENERAL: no acute distress. ABDOMEN: Soft. Nondistended. Nontender. NEUROLOGIC: awake and responding to questions ASSESSMENT: 1. Rectal prolapse 2. Acute on chronic renal failure 3. Hyperkalemia 4. UTI with hypotension 5. History of coronary disease with cardiac stent placed in May 2023 PLAN: -Plan for repair of rectal prolapse/lower anterior resection on 10/14/2023 if patient is medically stable -Patient to start bowel prep on Saturday with clear liquid diet in preparation for surgery -Placed Plavix on hold for possible surgical intervention -Continue supportive care
[2023-10-12 11:17] LABS: Glucose,Whole Blood 167 mg/dL (70-110)
--- NOTE | 2023-10-12 12:59 | XR ---
EXAMINATION TYPE: XR chest 1V DATE OF EXAM: 10/12/2023 COMPARISON: 10/10/2023 HISTORY: CHF TECHNIQUE: Single frontal view of the chest is obtained. FINDINGS: There is a linear band of density in the right upper lobe most typical scarring or atelect asis. No overt failure. No sizable pleural effusion or pneumothorax. Heart is mildly enlarged and the re is atherosclerotic change aorta. Osseous structures stable. Limited inspiration. Subsegmental cons olidation left retrocardiac region. IMPRESSION: 1. No overt failure. Linear band of density in the right upper lobe may represent atelectasis which i s favored over pneumonia. Correlate clinically. 2. Left lower lobe retrocardiac consolidation could represent atelectasis or infiltrate.
[2023-10-12 14:16] LABS: African American GFR (CKD) 15 (>60 ml/min/1.73 sqM); Albumin 2.5 g/dL (3.5-5.0); Anion Gap 9 mmol/L; Carbon Dioxide 23 mmol/L (22-30); Chloride 106 mmol/L (98-107); Glucose 135 mg/dL (74-99); Non-African American GFR(CKD) 13 (>60 ml/min/1.73 sqM); Potassium 4.5 mmol/L (3.5-5.1); Sodium 138 mmol/L (137-145)
[2023-10-12 14:17] LABS: Blood Urea Nitrogen 119 mg/dL (7-17); Calcium 5.6 mg/dL (8.4-10.2); Phosphorus 9.3 mg/dL (2.5-4.5)
[2023-10-12 16:08] LABS: Glucose,Whole Blood 138 mg/dL (70-110)
--- NOTE | 2023-10-12 16:20 | P.PN ---
Subjective Progress Note Date: 10/12/23 Patient is a 58-year-old white female with multiple medical comorbidities including coronary artery disease with previous PCI/stenting and ND, cardiomyopathy, pulmonary hypertension, systemic hypertension, hyperlipidemia, diabetes mellitus, chronic leg wounds, COPD, chronic kidney disease, among other things. Of note, she had a recent prolonged and complicated hospital stay 08/19/2023 through 09/27/2023. During this time, she did have a cardiopulmonary arrest and a prolonged stay in the intensive care unit. She was temporarily intubated following the cardiac arrest. She did develop acute renal failure and had temporary hemodialysis during her stay. Hemodialysis catheter has since been removed. She was eventually discharged to [facility] on 09/27/2023. She has been altered and confused. Possibly encephalopathic, and an overall poor historian. Patient was sent back in from the [facility] with abnormal labs and concerns for worsening renal function and hyperkalemia. Potassium is noted to be 6 initially on arrival. EKG on arrival shows sinus bradycardia 55 bpm. No hyperacute T waves or QRS widening. While in the emergency department, she was noted to be hypotensive, fluid resuscitated with 2 L of normal saline bolus, and then started on low-dose norepinephrine. A right femoral central line was inserted by the ER physician. Patient is currently in the intensive care unit on my evaluation. She is currently responsive to verbal stimuli, will wake up, and then falls back asleep. Information obtained not consistent for accurate interview. She believes she is at a friend's house. She is hypothermic, and has an external warming blanket on. Most recent temperature 35.4 C. She is currently on 3 L/min nasal cannula. SpO2 is 97%. Chest x-ray shows cardiomegaly with interstitial prominence and possible trace bilateral pleural effusions. There is a stable left lower lobe consolidation and or atelectasis. Overall picture more consistent with mild CHF. Patient does have a history of ischemic cardiomyopathy. Most recent echocardiogram done on 08/26/2023 shows an improvement, in the patient's previously severely reduced left ventricular ejection fraction, to 55 to 60%. Norepinephrine is currently infusing at 0.05 mcg/kg/min. There is a right femoral central line, with a pulsatile waveform, likely arterial placement, which has since been removed and pressure has been held. Hemostasis has been achieved by nursing staff. Most recent labs include a CBC with a WBC count 4.3, hemoglobin stable at 8 grams per deciliter, hematocrit 27.4, platelets 125. Most recent BMP: Sodium 136, potassium 6.5, chloride 113, serum bicarb 8, BUN 129, creatinine 3.73, glucose 75. I have treated the patient's hyperkalemia with the hyperkalemia protocol including 10 units of regular insulin, 1 amp D50 W, 2 amp sodium bicarbonate, another gram of calcium gluconate, concentrated albuterol. Due to patient being altered, an NG tube was inserted for [facility]. Nephrology has since been involved. Urinalysis positive for bacteria and leukocyte esterase and blood. Concerning for urinary tract infection. Patient did have a urinary tract infection on previous hospital admission, and isolated organism was positive for E. coli. She did come from the [facility] with an indwelling urinary catheter, which has since been replaced. There is a minimal amount of urine output with gross hematuria. She is empirically covered on Rocephin. Renal ultrasound did not show any evidence of hydronephrosis in either kidney. Dr. Ayala has since been called and updated on patient's status. On 10/11/2023, the patient is being seen for a follow-up. The patient is currently on 2 L of oxygen by nasal cannula. NG tube has been removed. She remains on a bicarb infusion and rate has been reduced down to 40 cc an hour. There was concern for fluid overload and based on that the patient was given Lasix yesterday and another dose of Lasix 60 mg IV push was given to her by n ephrology today. Urine output seems to be improving. The patient has produced approximately 580 cc of urine output since morning. Meanwhile, her creatinine is at 3.8 with a BUN of 119. Serum bicarb is at 17. Sodium is at 136 and a potassium level of 5.1. The white count is 4.7 with a hemoglobin of 8 and a platelet count of 97. Blood cultures negative. Urine culture still pending for now. The patient remains on IV Rocephin. The patient is currently on no pressors. She is afebrile. Mental status seems to be stable at this point in time. No other significant events overnight. No agitation. 66,024, the patient is being seen for a follow-up. The patient was transferred out of the intensive care unit yesterday. She is currently normotensive. Urine culture is positive for E. coli and Proteus mirabilis and the patient is currently on IV Rocephin. Hemodynamically stable. Mental status appropriate. The electrolytes are all within normal limits. Nevertheless, the BUN is 119 and the creatinine is at 3.58 and renal function slightly improved compared to yesterday. The white cell count from yesterday was at 4.7. The patient is currently on oxygen and she is currently on 2 L of O2 nasal cannula. No respiratory distress. No focal neurological deficits. Objective - Vital Signs Vital signs: Vital Signs Temp 97.2 F L 10/12/23 08:17 Pulse 70 10/12/23 08:37 Resp 16 10/12/23 08:37 BP 120/70 10/12/23 08:17 Pulse Ox 97 10/12/23 09:35 FiO2 Intake & Output 10/11/23 10/12/23 10/12/23 18:59 06:59 18:59 Intake Total 802 540 240 Output Total 430 Balance 372 540 240 Weight 81 kg Intake: IV 580 Dextrose 5% in Water 1, 580 000 ml @ 40 mls/hr IV . Q24H RYLIE with Sodium Bicarb (1 Meq/ml) 150 ml Rx#:[id number] Oral 222 540 240 Output: Urine 430 Other: Voiding Method Indwelling Catheter Indwelling Catheter Indwelling Catheter - Exam GENERAL EXAM: Lethargic and altered, responsive to verbal stimuli, 58-year-old white female, fairly comfortable in no apparent distress. Currently on 2 L of oxygen by nasal cannula and, comfortable. HEAD: Normocephalic and atraumatic EYES: Normal reaction of pupils, equal size. NOSE: Clear with pink turbinates. THROAT: No erythema or exudates. Dry mucous membranes NECK: No masses, no JVD. CHEST: No chest wall deformity. LUNGS: Equal air entry with diminished lung sounds bilaterally. On 2 L/min nasal cannula. No conversational dyspnea or accessory muscle use.. CVS: S1 and S2 normal with no audible murmur, regular rhythm. No extra heart sounds ABDOMEN: No hepatosplenomegaly, active bowel sounds, no guarding or rigidity. SPINE: No scoliosis or deformity SKIN: No rashes RECTUM: Complete rectal prolapse, red color CENTRAL NERVOUS SYSTEM: No focal deficits, tone is normal in all 4 extremities. EXTREMITIES: There is mild bilateral lower extremity edema. There is a right heel pressure ulcer, covered with Optifoam dressing. Remote appearing right swann/ankle incisions. No clubbing, or cyanosis. Peripheral pulses are intact. - Labs CBC & Chem 7: 10/11/23 03:57 10/12/23 13:22 Labs: Abnormal Lab Results - Last 24 Hours (Table) 10/11/23 10/11/23 10/11/23 Range/Units 03:57 11:49 16:47 POC Glucose (mg/dL) 208 H 202 H (70-110) mg/dL Vitamin D 25-Hydroxy 19.4 L (30.0-100.0) ng/mL 10/11/23 10/12/23 Range/Units 20:28 06:08 POC Glucose (mg/dL) 164 H 145 H (70-110) mg/dL Vitamin D 25-Hydroxy (30.0-100.0) ng/mL Microbiology - Last 24 Hours (Table) 10/09/23 15:48 Blood Culture - Preliminary Blood 10/09/23 16:02 Blood Culture - Preliminary Blood 10/09/23 18:58 Urine Culture - Final Urine,Voided Escherichia coli Proteus mirabilis Assessment and Plan Assessment: Sepsis with secondary hypotension likely secondary to urinary tract infection and the patient has E. coli and Proteus in the urine currently on IV Rocephin. Currently hemodynamically stable and she is off pressors. UTI with E. coli and Proteus based on the cultures Hypothermia, recovered Acute on chronic kidney disease, previously requiring temporary hemodialysis. Temporary hemodialysis catheter has since been removed. Creatinine is slightly improved compared to yesterday. Severe hyperkalemia, recovered Severe non-anion gap metabolic acidosis, recovered Altered mental status, suspect acute metabolic encephalopathy secondary to above, improving Acute hypoxemic respiratory failure, currently on 2 L/min nasal cannula, possibly secondary to mild CHF exacerbation with preserved ejection fraction, Chest x-ray shows cardiomegaly with interstitial prominence and possible trace bilateral pleural effusions. There is a stable left lower lobe consolidation and/or atelectasis. Viral panel negative for influenza, RSV, COVID. Anemia of chronic disease, hemoglobin stable Hypocalcemia, being replaced Complete rectal prolapse, previous attempts to replace History of cardiopulmonary arrest, x 2, with cardiopulmonary resuscitation, and return of spontaneous circulation on 08/23/23 History of congestive heart failure (HFPEF) History of coronary artery disease and previous non-ST segment elevation myocardial infarction and PCI/stent to the RCA Stage III chronic kidney disease Right heel pressure ulcer, stage III Subacute fracture of the medial and lateral malleolus History of hypertension History of hyperlipidemia History of type 2 diabetes mellitus History of severe pulmonary hypertension History of COPD Plan: Keep the patient on oxygen 2 L/min nasal cannula Monitor mental status, essentially improving Hemodynamically stable, currently off pressors Renal function slightly improved compared to yesterday Hold diuretics No pressors for now Monitor electrolytes Temperature is stable Patient is currently on the medical floor. Sitter at the bedside.
[2023-10-12] MEDS: CLOTRIMAZOLE 1% CREAM 30 GM TUBE TOPICAL SCH (18:01)
--- NOTE | 2023-10-12 19:22 | P.PN ---
Subjective Progress Note Date: 10/12/23 Patient is seen for follow-up for acute kidney injury. Making good amount of urine. No new complaints. Patient is awake. Examination of the heart S1 and S2 Examination of the lungs bilateral breath sounds are heard Abdomen is soft nontender Examination of lower extremities shows edema 1+ bilaterally [employer] exam shows patient is moving all 4 extremities. Objective - Vital Signs Vital signs: Vital Signs Temp 97.2 F L 10/12/23 11:19 Pulse 71 10/12/23 11:19 Resp 16 10/12/23 11:19 BP 132/67 10/12/23 11:19 Pulse Ox 98 10/12/23 11:19 FiO2 Intake & Output 10/11/23 10/12/23 10/12/23 18:59 06:59 18:59 Intake Total 802 540 240 Output Total 430 Balance 372 540 240 Weight 81 kg Intake: IV 580 Dextrose 5% in Water 1, 580 000 ml @ 40 mls/hr IV . Q24H RYLIE with Sodium Bicarb (1 Meq/ml) 150 ml Rx#:[id number] Oral 222 540 240 Output: Urine 430 Other: Voiding Method Indwelling Catheter Indwelling Catheter Indwelling Catheter - Labs CBC & Chem 7: 10/11/23 03:57 10/12/23 13:22 Labs: Abnormal Lab Results - Last 24 Hours (Table) 10/11/23 10/11/23 10/11/23 Range/Units 03:57 11:49 16:47 POC Glucose (mg/dL) 208 H 202 H (70-110) mg/dL Vitamin D 25-Hydroxy 19.4 L (30.0-100.0) ng/mL 10/11/23 10/12/23 10/12/23 Range/Units 20:28 06:08 11:13 POC Glucose (mg/dL) 164 H 145 H 167 H (70-110) mg/dL Vitamin D 25-Hydroxy (30.0-100.0) ng/mL Microbiology - Last 24 Hours (Table) 10/09/23 15:48 Blood Culture - Preliminary Blood 10/09/23 16:02 Blood Culture - Preliminary Blood 10/09/23 18:58 Urine Culture - Final Urine,Voided Escherichia coli Proteus mirabilis Assessment and Plan Assessment: 1. Acute kidney injury ATN, oliguric secondary to hypotension and sepsis. Patient has history of acute kidney injury requiring hemodialysis during her last admission. Renal function has improved along with improvement in hyperkalemia. We will hold off on dialysis for now. 2. Hypotension from sepsis 3. Sepsis likely underlying UTI 4. Non-gap metabolic acidosis maintained on bicarb drip. Etiology acute kidney injury. 5. Hyperkalemia associated with acute kidney injury and metabolic acidosis 6. History of cardiac arrest during her last admission 7. CKD Stage IIIb baseline creatinine 1.5-1.8 mg/dL Plan: Continue with bicarb drip. Decrease rate to 40 cc an hour. Creatinine continues to improve with good urine output. Hold hemodialysis for now.
[2023-10-12 20:12] LABS: Glucose,Whole Blood 137 mg/dL (70-110)
[2023-10-12] MEDS: CHOLECALCIFEROL 25 MCG (1000 IU) TABLET PO SCH (23:39)
[2023-10-13 06:06] LABS: Glucose,Whole Blood 117 mg/dL (70-110)
[2023-10-13] MEDS: PEG 3350 (236 GM/BTL) + LYTES 4,000 ML BOTTLE PO ONE (09:06)
[2023-10-13] MEDS: SODIUM CHLORIDE 0.9% 1,000 ML IV SCH (11:35)
[2023-10-13 11:51] LABS: Glucose,Whole Blood 112 mg/dL (70-110)
--- NOTE | 2023-10-13 12:09 | P.PN ---
Subjective Progress Note Date: 10/13/23 Patient is a 58-year-old white female with multiple medical comorbidities including coronary artery disease with previous PCI/stenting and AR, cardiomyopathy, pulmonary hypertension, systemic hypertension, hyperlipidemia, diabetes mellitus, chronic leg wounds, COPD, chronic kidney disease, among other things. Of note, she had a recent prolonged and complicated hospital stay 08/19/2023 through 09/27/2023. During this time, she did have a cardiopulmonary arrest and a prolonged stay in the intensive care unit. She was temporarily intubated following the cardiac arrest. She did develop acute renal failure and had temporary hemodialysis during her stay. Hemodialysis catheter has since been removed. She was eventually discharged to [facility] on 09/27/2023. She has been altered and confused. Possibly encephalopathic, and an overall poor historian. [facility] with abnormal labs and concerns for worsening renal function and hyperkalemia. Potassium is noted to be 6 initially on arrival. EKG on arrival shows sinus bradycardia 55 bpm. No hyperacute T waves or QRS widening. While in the emergency department, she was noted to be hypotensive, fluid resuscitated with 2 L of normal saline bolus, and then started on low-dose norepinephrine. A right femoral central line was inserted by the ER physician. Patient is currently in the intensive care unit on my evaluation. She is currently responsive to verbal stimuli, will wake up, and then falls back asleep. Information obtained not consistent for accurate interview. She believes she is at a friend's house. She is hypothermic, and has an external warming blanket on. Most recent temperature 35.4 C. She is currently on 3 L/min nasal cannula. SpO2 is 97%. Chest x-ray shows cardiomegaly with interstitial prominence and possible trace bilateral pleural effusions. There is a stable left lower lobe consolidation and or atelectasis. Overall picture more consistent with mild CHF. Patient does have a history of ischemic cardiomyopathy. Most recent echocardiogram done on 08/26/2023 shows an improvement, in the patient's previously severely reduced left ventricular ejection fraction, to 55 to 60%. Norepinephrine is currently infusing at 0.05 mcg/kg/min. There is a right femoral central line, with a pulsatile waveform, likely arterial placement, which has since been removed and pressure has been held. Hemostasis has been achieved by nursing staff. Most recent labs include a CBC with a WBC count 4.3, hemoglobin stable at 8 grams per deciliter, hematocrit 27.4, platelets 125. Most recent BMP: Sodium 136, potassium 6.5, chloride 113, serum bicarb 8, BUN 129, creatinine 3.73, glucose 75. I have treated the patient's hyperkalemia with the hyperkalemia protocol including 10 units of regular insulin, 1 amp D50 W, 2 amp sodium bicarbonate, another gram of calcium gluconate, concentrated albuterol. Due to patient being altered, an NG tube was inserted for [facility]. Nephrology has since been involved. Urinalysis positive for bacteria and leukocyte esterase and blood. Concerning for urinary tract infection. Patient did have a urinary tract infection on previous hospital admission, and isolated organism was positive for E. coli. She did come from the [facility] with an indwelling urinary catheter, which has since been replaced. There is a minimal amount of urine output with gross hematuria. She is empirically covered on Rocephin. Renal ultrasound did not show any evidence of hydronephrosis in either kidney. Dr. Ayala has since been called and updated on patient's status. On 10/11/2023, the patient is being seen for a follow-up. The patient is currently on 2 L of oxygen by nasal cannula. NG tube has been removed. She remains on a bicarb infusion and rate has been reduced down to 40 cc an hour. There was concern for fluid overload and based on that the patient was given Lasix yesterday and another dose of Lasix 60 mg IV push was given to her by n ephrology today. Urine output seems to be improving. The patient has produced approximately 580 cc of urine output since morning. Meanwhile, her creatinine is at 3.8 with a BUN of 119. Serum bicarb is at 17. Sodium is at 136 and a potassium level of 5.1. The white count is 4.7 with a hemoglobin of 8 and a platelet count of 97. Blood cultures negative. Urine culture still pending for now. The patient remains on IV Rocephin. The patient is currently on no pressors. She is afebrile. Mental status seems to be stable at this point in time. No other significant events overnight. No agitation. 66,024, the patient is being seen for a follow-up. The patient was transferred out of the intensive care unit yesterday. She is currently normotensive. Urine culture is positive for E. coli and Proteus mirabilis and the patient is currently on IV Rocephin. Hemodynamically stable. Mental status appropriate. The electrolytes are all within normal limits. Nevertheless, the BUN is 119 and the creatinine is at 3.58 and renal function slightly improved compared to yesterday. The white cell count from yesterday was at 4.7. The patient is currently on oxygen and she is currently on 2 L of O2 nasal cannula. No respiratory distress. No focal neurological deficits. On 10/13/2023, the patient is resting comfortably in bed. She is being treated for an underlying urine tract infection the patient remains on IV Rocephin. No respiratory distress. She is on 2 L of oxygen by nasal cannula with a pulse ox of 99%., Comfortable. No fever or chills. No hemodynamic instability. Me dications are essentially unchanged. Awaiting labs from today. Objective - Vital Signs Vital signs: Vital Signs Temp 98.0 F 10/13/23 07:37 Pulse 75 10/13/23 07:37 Resp 20 10/13/23 07:37 BP 126/71 10/13/23 07:37 Pulse Ox 92 L 10/13/23 07:37 FiO2 Intake & Output 10/12/23 10/13/23 10/13/23 18:59 06:59 18:59 Intake Total 240 540 Output Total 900 600 Balance -660 -60 Weight 79 kg Intake: Oral 240 540 Output: Urine 900 600 Other: Voiding Method Indwelling Catheter Indwelling Catheter - Exam GENERAL EXAM: Lethargic and altered, responsive to verbal stimuli, 58-year-old white female, fairly comfortable in no apparent distress. Currently on 2 L of oxygen by nasal cannula and, comfortable. HEAD: Normocephalic and atraumatic EYES: Normal reaction of pupils, equal size. NOSE: Clear with pink turbinates. THROAT: No erythema or exudates. Dry mucous membranes NECK: No masses, no JVD. CHEST: No chest wall deformity. LUNGS: Equal air entry with diminished lung sounds bilaterally. On 2 L/min nasal cannula. No conversational dyspnea or accessory muscle use.. CVS: S1 and S2 normal with no audible murmur, regular rhythm. No extra heart sounds ABDOMEN: No hepatosplenomegaly, active bowel sounds, no guarding or rigidity. SPINE: No scoliosis or deformity SKIN: No rashes RECTUM: Complete rectal prolapse, red color CENTRAL NERVOUS SYSTEM: No focal deficits, tone is normal in all 4 extremities. EXTREMITIES: There is mild bilateral lower extremity edema. There is a right heel pressure ulcer, covered with Optifoam dressing. Remote appearing right swann/ankle incisions. No clubbing, or cyanosis. Peripheral pulses are intact. - Labs CBC & Chem 7: 10/11/23 03:57 10/12/23 13:22 Labs: Abnormal Lab Results - Last 24 Hours (Table) 10/12/23 10/12/23 10/12/23 Range/Units 11:13 13:22 16:06 BUN 119 H* (7-17) mg/dL Creatinine 3.58 H (0.52-1.04) mg/dL Glucose 135 H (74-99) mg/dL POC Glucose (mg/dL) 167 H 138 H (70-110) mg/dL Calcium 5.6 L* (8.4-10.2) mg/dL Phosphorus 9.3 H* (2.5-4.5) mg/dL Albumin 2.5 L (3.5-5.0) g/dL 10/12/23 10/13/23 Range/Units 20:10 06:05 BUN (7-17) mg/dL Creatinine (0.52-1.04) mg/dL Glucose (74-99) mg/dL POC Glucose (mg/dL) 137 H 117 H (70-110) mg/dL Calcium (8.4-10.2) mg/dL Phosphorus (2.5-4.5) mg/dL Albumin (3.5-5.0) g/dL Microbiology - Last 24 Hours (Table) 10/09/23 15:48 Blood Culture - Preliminary Blood 10/09/23 16:02 Blood Culture - Preliminary Blood Assessment and Plan Assessment: Sepsis with secondary hypotension likely secondary to urinary tract infection and the patient has E. coli and Proteus in the urine currently on IV Rocephin. Currently hemodynamically stable and she is off pressors. UTI with E. coli and Proteus based on the cultures Hypothermia, recovered Acute on chronic kidney disease, previously requiring temporary hemodialysis. Temporary hemodialysis catheter has since been removed. Creatinine is slightly improved compared to yesterday. Severe hyperkalemia, recovered Severe non-anion gap metabolic acidosis, recovered Altered mental status, suspect acute metabolic encephalopathy secondary to above, improving Acute hypoxemic respiratory failure, currently on 2 L/min nasal cannula, possibly secondary to mild CHF exacerbation with preserved ejection fraction, Chest x-ray shows cardiomegaly with interstitial prominence and possible trace bilateral pleural effusions. There is a stable left lower lobe consolidation and/or atelectasis. Viral panel negative for influenza, RSV, COVID. Anemia of chronic disease, hemoglobin stable Hypocalcemia, being replaced Complete rectal prolapse, previous attempts to replace History of cardiopulmonary arrest, x 2, with cardiopulmonary resuscitation, and return of spontaneous circulation on 08/23/23 History of congestive heart failure (HFPEF) History of coronary artery disease and previous non-ST segment elevation myocardial infarction and PCI/stent to the RCA Stage III chronic kidney disease Right heel pressure ulcer, stage III Subacute fracture of the medial and lateral malleolus History of hypertension History of hyperlipidemia History of type 2 diabetes mellitus History of severe pulmonary hypertension History of COPD Plan: Keep the patient on oxygen 2 L/min nasal cannula should be able to further wean the patient to a room air oxygen. Monitor mental status, essentially improving Hemodynamically stable, currently off pressors Renal function slightly improved compared to yesterday, awaiting follow-up labs from today. Continue IV Rocephin Hold diuretics No pressors for now Monitor electrolytes Temperature is stable Patient is currently on the medical floor. Neurologically stable
--- NOTE | 2023-10-13 12:26 | P.PN ---
Subjective Progress Note Date: 10/13/23 Patient is seen for follow-up for acute kidney injury. Making good amount of urine. No new complaints. Planing for prolapse repair tomorrow. Patient is awake. Examination of the heart S1 and S2 Examination of the lungs bilateral breath sounds are heard Abdomen is soft nontender Examination of lower extremities shows edema 1+ bilaterally EXPLOSIVES ENGINEER exam shows patient is moving all 4 extremities. Objective - Vital Signs Vital signs: Vital Signs Temp 98.0 F 10/13/23 07:37 Pulse 75 10/13/23 07:37 Resp 20 10/13/23 07:37 BP 126/71 10/13/23 07:37 Pulse Ox 92 L 10/13/23 07:37 FiO2 Intake & Output 10/12/23 10/13/23 10/13/23 18:59 06:59 18:59 Intake Total 240 540 Output Total 900 600 Balance -660 -60 Weight 79 kg Intake: Oral 240 540 Output: Urine 900 600 Other: Voiding Method Indwelling Catheter Indwelling Catheter Indwelling Catheter - Labs CBC & Chem 7: 10/11/23 03:57 10/12/23 13:22 Labs: Abnormal Lab Results - Last 24 Hours (Table) 10/12/23 10/12/23 10/12/23 Range/Units 11:13 13:22 16:06 BUN 119 H* (7-17) mg/dL Creatinine 3.58 H (0.52-1.04) mg/dL Glucose 135 H (74-99) mg/dL POC Glucose (mg/dL) 167 H 138 H (70-110) mg/dL Calcium 5.6 L* (8.4-10.2) mg/dL Phosphorus 9.3 H* (2.5-4.5) mg/dL Albumin 2.5 L (3.5-5.0) g/dL 10/12/23 10/13/23 Range/Units 20:10 06:05 BUN (7-17) mg/dL Creatinine (0.52-1.04) mg/dL Glucose (74-99) mg/dL POC Glucose (mg/dL) 137 H 117 H (70-110) mg/dL Calcium (8.4-10.2) mg/dL Phosphorus (2.5-4.5) mg/dL Albumin (3.5-5.0) g/dL Microbiology - Last 24 Hours (Table) 10/09/23 15:48 Blood Culture - Preliminary Blood 10/09/23 16:02 Blood Culture - Preliminary Blood Assessment and Plan Assessment: 1. Acute kidney injury ATN, oliguric secondary to hypotension and sepsis. Patient has history of acute kidney injury requiring hemodialysis during her last admission. Renal function has improved along with improvement in hyperkalemia. We will hold off on dialysis for now. 2. Hypotension from sepsis 3. Sepsis likely underlying UTI 4. Non-gap metabolic acidosis maintained on bicarb drip. Etiology acute kidney injury. Improving with bicarb drip. 5. Hyperkalemia associated with acute kidney injury and metabolic acidosis 6. History of cardiac arrest during her last admission 7. CKD Stage IIIb baseline creatinine 1.5-1.8 mg/dL Plan: Stop bicarb drip, change to normal saline at 75cc/hr. Continue sodium bicarb PO. Creatinine continues to improve with good urine output. Hold off on hemodialysis for now.
--- NOTE | 2023-10-13 14:35 | P.PN ---
Subjective Progress Note Date: 10/13/23 CHIEF COMPLAINT: Rectal prolapse HISTORY OF PRESENT ILLNESS: The patient is a 58-year-old female with multiple comorbidities including recent cardiac arrest in the past 8 to 9 months and acute renal failure and rectal prolapse. Family is at bedside including . Patient has a bear hugger due to hypothermia. Patient is having bowel movements. Patient has had multiple episodes of rectal prolapse with reduction. Most history is obtained by her family is at bedside including . She is on clear liquid diet ROS: No reports of nausea and vomiting. No new chest pain. No productive s putum PHYSICAL EXAM: VITAL SIGNS: Reviewed CONSTITUTIONAL: Well developed and in no acute distress. EYES: Conjuctivae without sclera icterus. Extraocular movements grossly intact. HEAD, EARS, NOSE, THROAT: Head is atraumatic, normocephalic. Hears conversational speech. No nasal drainage. RESPIRATORY: Non-labored respirations and equal bilateral excursions. CARDIOVASCULAR: Palpable 2+ radial pulses. ABDOMEN: No peritonitis. Nontender. MUSCULOSKELETAL: No gross deformity of the lower extremities noted. No clubbing. No cyanosis. SKIN: Good skin turgor. Well perfused. NEUROLOGIC: Cranial nerves II through XII grossly intact. No focal or lateralizing signs. PSYCH: Flat affect. CLINICAL LABS: Reviewed. Calcium low, critical. Phosphorus high, critical. BUN high. WBC normal from 10/11/2023 ASSESSMENT: 1. Rectal prolapse 2. History of cardiac arrest 3. Severe hypokalemia 4. Severe hyperphosphatemia 5. Acute renal failure with hemodialysis 6. Hypothermia PLAN: 1. As of today, patient has critical high and low phosphorus and calcium, respectively. Recommend correction prior to surgical intervention. 2. Patient currently tolerating bowel prep. Patient scheduled for colectomy and repair of rectal prolapse, tomorrow. 3. Overall, patient extremely high risk with comorbidities including current electrolyte dyscrasias. May need additional medical optimization prior to surgery. 4. Care plan described with patient and family at bedside and questions answer ed. Objective - Vital Signs Vital signs: Vital Signs Temp 92.9 F L 10/13/23 14:16 Pulse 68 10/13/23 13:45 Resp 20 10/13/23 11:33 BP 145/83 10/13/23 11:33 Pulse Ox 99 10/13/23 11:51 FiO2 Intake & Output 10/12/23 10/13/23 10/13/23 18:59 06:59 18:59 Intake Total 240 540 Output Total 900 600 600 Balance -660 -60 -600 Weight 79 kg Intake: Oral 240 540 Output: Urine 900 600 600 Other: Voiding Method Indwelling Catheter Indwelling Catheter Indwelling Catheter # Bowel Movements 1 - Labs CBC & Chem 7: 10/11/23 03:57 10/12/23 13:22 Labs: Abnormal Lab Results - Last 24 Hours (Table) 10/12/23 10/12/23 10/13/23 Range/Units 16:06 20:10 06:05 POC Glucose (mg/dL) 138 H 137 H 117 H (70-110) mg/dL 10/13/23 Range/Units 11:47 POC Glucose (mg/dL) 112 H (70-110) mg/dL Microbiology - Last 24 Hours (Table) 10/09/23 15:48 Blood Culture - Preliminary Blood 10/09/23 16:02 Blood Culture - Preliminary Blood
[2023-10-13 16:15] LABS: Glucose,Whole Blood 94 mg/dL (70-110)
--- NOTE | 2023-10-13 20:17 | P.PN ---
Subjective Progress Note Date: 10/10/23 Patient is a 58-year-old female with a past medical history of hypertension, hyperlipidemia, diabetes type 2, CKD stage III with baseline creatinine around 1.8, ischemic cardiomyopathy with improved EF, GBS, history of hemodialysis and prior history of smoking was sent from [facility] due to worsening renal function with elevated creatinine level.. Patient was recently discharged from the hospital on 09/27/2023. Admitted on 08/19/2023. Patient was status post cardiac arrest and respiratory failure requ iring intubation. Patient was treated for acute CHF and hypoxic respiratory failure, ischemic cardiomyopathy ejection fraction improved. Patient was discharged to [facility]. Patient also has right heel stage III pressure ulcer and subacute fracture of the medial and lateral malleolus, no plans for immediate surgical intervention as per orthopedic surgery. She was also treated for E. coli urinary tract infection. Patient was having episodes of vomiting couple days ago and also had diarrhea ye sterday. Continue to have nausea and decreased oral intake. Otherwise denies any complaints of abdominal pain. No complaints of diarrhea at today. Patient was recently discharged home with antibiotics, doxycycline on 09/27/2023. Denied any fever or chills. No chest pain or shortness of breath. No cough or sputum production. Chest x-ray showed correlate for mild CHF. Left lower lobe consolidation could be on the basis of pneumonia or chronic atelectasis. Stable from prior exam. EKG showed sinus bradycardia with heart rate 55. Laboratory data showed hemoglobin 8.0, WBC 4.3 and platelets 125 Sodium 134 potassium 6.0 chloride 109 bicarb is 15 BUN 130 and creatinine 3.72 and blood sugar 100 lactic acid 0.6 and calcium 6.3. Magnesium 2.4 alk phos 201 TSH 8.1 and free T40.94 0.97 Urinalysis showed turbid with large blood large leukocyte esterase and elevated RBCs and WBCs. Influenza A B and RSV COVID-19 PCR not detected. Patient was hypotensive with blood pressure 85/59 with pulse of 59 respirations 17 and pulse ox 100% on 2 L oxygen on admission. 10/10/2023 Patient is in the MICU. Awake alert and oriented. No complaints of chest pain or abdominal pain. No nausea or vomiting. Patient's blood pressure is low and remains on pressor support. Also on bicarb drip. Patient is able to make urine. Chest x-ray showed NG tube in good position. Renal ultrasound showed suboptimal study but no gross hydronephrosis identified bilaterally Laboratory data showed WBC 6.8 hemoglobin 7.8 and platelets 128, sodium 138 potassium 5.7 chloride 112 bicarb is 14 BUN 123 and creatinine 3.9 and blood sugar 137 A1c 6.4 calcium 6.1 and procalcitonin level is 0.32 patient remains on antibiotics of ceftriaxone. Current medications reviewed. Objective - Vital Signs Vital signs: Vital Signs Temp 97.6 F 10/10/23 20:00 Pulse 63 10/10/23 22:00 Resp 12 10/10/23 22:00 BP 110/66 10/10/23 22:00 Pulse Ox 96 10/10/23 22:00 FiO2 Intake & Output 10/10/23 10/10/23 10/11/23 06:59 18:59 06:59 Intake Total 855.355 6292.279 400 Output Total 70 135 100 Balance 366.581 3063.279 300 Weight 78.9 kg Intake: IV 80 1075 400 .9 kvo 80 Dextrose 5% in Water 1, 1000 400 000 ml @ 100 mls/hr IV . [id number] RYLIE with Sodium Bicarb (1 Meq/ml) 150 ml Rx#:[id number] Sodium Chloride 0.9% 1, 75 000 ml @ 75 mls/hr IV . [id number] RYLIE Rx#:[id number] Intake, IV Titration 138.533 116.279 Amount Norepinephrine 32 mg In 11.424 Sodium Chloride 0.9% 218 ml @ 0.05 MCG/KG/MIN 1.68 mls/hr IV .Q24H RYLIE Rx#: [id number] Norepinephrine 4 mg In 52.109 41.279 Sodium Chloride 0.9% 250 ml @ 0.03 MCG/KG/MIN 8. 192 mls/hr IV .Q24H RYLIE Rx#:[id number] Sodium Chloride 0.9% 1, 75 75 000 ml @ 75 mls/hr IV . [id number] RYLIE Rx#:[id number] Oral 500 Output: Urine 70 135 100 Other: Voiding Method Indwelling Catheter Indwelling Catheter Indwelling Catheter - Exam PHYSICAL EXAMINATION: Patient is lying in the bed comfortably, no acute distress, awake alert and oriented.. HEENT: Normocephalic. Neck is supple. Pupils reactive. Nostrils clear. Oral cavity is moist. Neck reveals no JVD, carotid bruits, or thyromegaly. CHEST EXAMINATION: Trachea is central. Symmetrical expansion. Bibasilar diminished sounds. No wheezing or rhonchi. CARDIAC: Normal S1, S2 with no gallops. No murmurs ABDOMEN: Soft. Bowel sounds normal. No organomegaly. No abdominal bruits. Extremities: reveal no edema. Heel wounds are bandaged. No clubbing or cyanosis Neurologically awake, alert, oriented x3. Able to move all extremities.. Gross no focal deficits noted Skin: No rash. Patient does have bilateral heel ulcers bandaged. Psychiatric: Coperative. Nonsuicidal Musculoskeletal: No joint swelling or deformity. - Labs CBC & Chem 7: 10/11/23 03:57 10/12/23 13:22 Labs: Abnormal Lab Results - Last 24 Hours (Table) 10/10/23 10/10/23 10/10/23 Range/Units 03:17 03:17 03:17 RBC 2.64 L (3.80-5.40) m/uL Hgb 7.8 L (11.4-16.0) gm/dL Hct 25.7 L (34.0-46.0) % MCHC 30.4 L (31.0-37.0) g/dL RDW 18.4 H (11.5-15.5) % Plt Count 128 L (150-450) k/uL Lymphocytes # 0.7 L (1.0-4.8) k/uL Potassium 5.7 H (3.5-5.1) mmol/L Chloride 112 H (98-107) mmol/L Carbon Dioxide 14 L (22-30) mmol/L BUN 123 H* (7-17) mg/dL Creatinine 3.90 H (0.52-1.04) mg/dL Glucose 70 L (74-99) mg/dL POC Glucose (mg/dL) (70-110) mg/dL Hemoglobin A1c 6.4 H (<=6.0) % Calcium 6.1 L* (8.4-10.2) mg/dL Ionized Calcium Mariluz (4.5-5.3) mg/dL Procalcitonin (0.02-0.09) ng/mL 10/10/23 10/10/23 10/10/23 Range/Units 03:18 06:35 12:51 RBC (3.80-5.40) m/uL Hgb (11.4-16.0) gm/dL Hct (34.0-46.0) % MCHC (31.0-37.0) g/dL RDW (11.5-15.5) % Plt Count (150-450) k/uL Lymphocytes # (1.0-4.8) k/uL Potassium 5.7 H (3.5-5.1) mmol/L Chloride 111 H (98-107) mmol/L Carbon Dioxide 13 L (22-30) mmol/L BUN 127 H* (7-17) mg/dL Creatinine 4.03 H (0.52-1.04) mg/dL Glucose 109 H (74-99) mg/dL POC Glucose (mg/dL) (70-110) mg/dL Hemoglobin A1c (<=6.0) % Calcium 6.1 L* (8.4-10.2) mg/dL Ionized Calcium Mariluz 3.7 L (4.5-5.3) mg/dL Procalcitonin 0.32 H (0.02-0.09) ng/mL 10/10/23 10/10/23 10/10/23 Range/Units 13:17 17:40 20:21 RBC (3.80-5.40) m/uL Hgb (11.4-16.0) gm/dL Hct (34.0-46.0) % MCHC (31.0-37.0) g/dL RDW (11.5-15.5) % Plt Count (150-450) k/uL Lymphocytes # (1.0-4.8) k/uL Potassium (3.5-5.1) mmol/L Chloride (98-107) mmol/L Carbon Dioxide (22-30) mmol/L BUN (7-17) mg/dL Creatinine (0.52-1.04) mg/dL Glucose (74-99) mg/dL POC Glucose (mg/dL) 126 H 141 H 135 H (70-110) mg/dL Hemoglobin A1c (<=6.0) % Calcium (8.4-10.2) mg/dL Ionized Calcium Mariluz (4.5-5.3) mg/dL Procalcitonin (0.02-0.09) ng/mL 10/10/23 Range/Units 20:52 RBC (3.80-5.40) m/uL Hgb (11.4-16.0) gm/dL Hct (34.0-46.0) % MCHC (31.0-37.0) g/dL RDW (11.5-15.5) % Plt Count (150-450) k/uL Lymphocytes # (1.0-4.8) k/uL Potassium 5.6 H (3.5-5.1) mmol/L Chloride (98-107) mmol/L Carbon Dioxide (22-30) mmol/L BUN (7-17) mg/dL Creatinine (0.52-1.04) mg/dL Glucose (74-99) mg/dL POC Glucose (mg/dL) (70-110) mg/dL Hemoglobin A1c (<=6.0) % Calcium (8.4-10.2) mg/dL Ionized Calcium Mariluz (4.5-5.3) mg/dL Procalcitonin (0.02-0.09) ng/mL Assessment and Plan Assessment: Acute kidney injury likely due to ATN due to hypotension and possible infection. Creatinine 3.72 on admission baseline creatinine around 1.8 Hyperkalemia due to MARYLOU. Improving Non-anion gap metabolic acidosis secondary to above Rectal prolapse Recent nausea vomiting and diarrhea. CKD stage III stage IIIb due to nephrosclerosis/nephropathy and cardiorenal.. Hypotension Urinary tract infection Possible pneumonia with left lower lobe consolidation on chest x-ray. Hypertension. Patient is currently hypotensive. Recent admission due Asystole/cardiopulmonary rest and hypoxic respiratory failure. Discharged to [facility] on 09/27/2023. History of antral gastritis Anemia of chronic disease and iron deficiency anemia Coronary artery disease with history of stent placement to and May 2023. Chronic CHF with systolic dysfunction Ischemic cardiomyopathy with improved EF Subacute fracture of the medial and lateral malleolus, orthopedics following with no plans of immediate surgical intervention at this time Right heel stage III pressure injury continue local wound care with aquacel ID following. Genital lesions, will need flight operations engineer follow up outpatient for routine screenings Hyperlipidemia Type 2 diabetes mellitus uncontrolled hgb a1c 12.1 Severe pulmonary hypertension COPD without any acute exacerbation Peripheral neuropathy GI prophylaxis with PPI DVT prophylaxis heparin SQ every 12 Plan: Patient is in the MICU. Continued on bicarb drip and pressor support. Current antibiotics ceftriaxone and will add azithromycin for possible pneumonia. Follow-up urine culture and blood culture. Procalcitonin is 0.3 Blood pressure medications and diuretics on hold. Insulin sliding scale for blood sugar control. Nephrology recommends CADDY if patient becomes oliguric. Continue to follow closely. Patient was seen by general surgery due to rectal prolapse and recommended surgery on 10/14/2023. Plavix on hold. Prognosis is guarded. Time with Patient: Greater than 30
[2023-10-13 20:31] LABS: Glucose,Whole Blood 82 mg/dL (70-110)
--- NOTE | 2023-10-13 20:32 | P.PN ---
Subjective Progress Note Date: 10/11/23 Patient is a 58-year-old female with a past medical history of hypertension, hyperlipidemia, diabetes type 2, CKD stage III with baseline creatinine around 1.8, ischemic cardiomyopathy with improved EF, GBS, history of hemodialysis and prior history of smoking was sent from [facility] due to worsening renal function with elevated creatinine level.. Patient was recently discharged from the hospital on 09/27/2023. Admitted on 08/19/2023. Patient was status post cardiac arrest and respiratory failure requ iring intubation. Patient was treated for acute CHF and hypoxic respiratory failure, ischemic cardiomyopathy ejection fraction improved. Patient was discharged to [facility]. Patient also has right heel stage III pressure ulcer and subacute fracture of the medial and lateral malleolus, no plans for immediate surgical intervention as per orthopedic surgery. She was also treated for E. coli urinary tract infection. Patient was having episodes of vomiting couple days ago and also had diarrhea ye sterday. Continue to have nausea and decreased oral intake. Otherwise denies any complaints of abdominal pain. No complaints of diarrhea at today. Patient was recently discharged home with antibiotics, doxycycline on 09/27/2023. Denied any fever or chills. No chest pain or shortness of breath. No cough or sputum production. Chest x-ray showed correlate for mild CHF. Left lower lobe consolidation could be on the basis of pneumonia or chronic atelectasis. Stable from prior exam. EKG showed sinus bradycardia with heart rate 55. Laboratory data showed hemoglobin 8.0, WBC 4.3 and platelets 125 Sodium 134 potassium 6.0 chloride 109 bicarb is 15 BUN 130 and creatinine 3.72 and blood sugar 100 lactic acid 0.6 and calcium 6.3. Magnesium 2.4 alk phos 201 TSH 8.1 and free T40.94 0.97 Urinalysis showed turbid with large blood large leukocyte esterase and elevated RBCs and WBCs. Influenza A B and RSV COVID-19 PCR not detected. Patient was hypotensive with blood pressure 85/59 with pulse of 59 respirations 17 and pulse ox 100% on 2 L oxygen on admission. 10/10/2023 Patient is in the MICU. Awake alert and oriented. No complaints of chest pain or abdominal pain. No nausea or vomiting. Patient's blood pressure is low and remains on pressor support. Also on bicarb drip. Patient is able to make urine. Chest x-ray showed NG tube in good position. Renal ultrasound showed suboptimal study but no gross hydronephrosis identified bilaterally Laboratory data showed WBC 6.8 hemoglobin 7.8 and platelets 128, sodium 138 potassium 5.7 chloride 112 bicarb is 14 BUN 123 and creatinine 3.9 and blood sugar 137 A1c 6.4 calcium 6.1 and procalcitonin level is 0.32 patient remains on antibiotics of ceftriaxone. 10/11/2023 Patient is in the MICU. Awake alert and oriented. Currently on 2 L oxygen via nasal cannula. Otherwise patient is being continued on bicarb drip. Was also given dose of IV Lasix per nephrology for possible pulm overload. Patient does have urine output which is improving. Otherwise patient is being continued on ceftriaxone. Urine culture and blood cultures are pending. Laboratory data showed WBC 4.7 hemoglobin 8.0 and platelets 97 sodium 136 potassium 5.1 chloride 108 bicarb is 17 BUN 119 and creatinine 3.89 and blood sugar 150 and calcium 5.9 and vitamin D level is low at 19.4. Nephrology and pulmonary is on board. Current medications reviewed. Objective - Vital Signs Vital signs: Vital Signs Temp 97.3 F L 10/11/23 20:00 Pulse 71 10/11/23 20:00 Resp 16 10/11/23 20:00 BP 119/66 10/11/23 20:00 Pulse Ox 99 10/11/23 20:00 FiO2 Intake & Output 10/11/23 10/11/23 10/12/23 06:59 18:59 06:59 Intake Total 1400 802 Output Total 445 430 Balance 955 372 Weight 77.6 kg Intake: IV 1200 580 Dextrose 5% in Water 1, 1200 580 000 ml @ 40 mls/hr IV . Q24H RYILE with Sodium Bicarb (1 Meq/ml) 150 ml Rx#:[id number] Oral 200 222 Output: Urine 445 430 Other: Voiding Method Indwelling Catheter Indwelling Catheter Indwelling Catheter # Bowel Movements 1 - Exam PHYSICAL EXAMINATION: Patient is lying in the bed comfortably, no acute distress, awake alert and oriented.. HEENT: Normocephalic. Neck is supple. Pupils reactive. Nostrils clear. Oral cavity is moist. Neck reveals no JVD, carotid bruits, or thyromegaly. CHEST EXAMINATION: Trachea is central. Symmetrical expansion. Bibasilar diminished sounds. No wheezing or rhonchi. CARDIAC: Normal S1, S2 with no gallops. No murmurs ABDOMEN: Soft. Bowel sounds normal. No organomegaly. No abdominal bruits. Extremities: reveal no edema. Heel wounds are bandaged. No clubbing or cyano sis Neurologically awake, alert, oriented x3. Able to move all extremities.. Gross no focal deficits noted Skin: No rash. Patient does have bilateral heel ulcers bandaged. Psychiatric: Coperative. Nonsuicidal Musculoskeletal: No joint swelling or deformity. - Labs CBC & Chem 7: 10/11/23 03:57 10/12/23 13:22 Labs: Abnormal Lab Results - Last 24 Hours (Table) 10/11/23 10/11/23 10/11/23 Range/Units 03:57 03:57 06:59 RBC 2.82 L (3.80-5.40) m/uL Hgb 8.0 L (11.4-16.0) gm/dL Hct 27.5 L (34.0-46.0) % MCHC 29.1 L (31.0-37.0) g/dL RDW 18.4 H (11.5-15.5) % Plt Count 97 L (150-450) k/uL Lymphocytes # 0.7 L (1.0-4.8) k/uL Sodium 136 L (137-145) mmol/L Chloride 108 H (98-107) mmol/L Carbon Dioxide 17 L (22-30) mmol/L BUN 119 H* (7-17) mg/dL Creatinine 3.89 H (0.52-1.04) mg/dL Glucose 150 H (74-99) mg/dL POC Glucose (mg/dL) 182 H (70-110) mg/dL Calcium 5.9 L* (8.4-10.2) mg/dL 10/11/23 10/11/23 10/11/23 Range/Units 11:49 16:47 20:28 RBC (3.80-5.40) m/uL Hgb (11.4-16.0) gm/dL Hct (34.0-46.0) % MCHC (31.0-37.0) g/dL RDW (11.5-15.5) % Plt Count (150-450) k/uL Lymphocytes # (1.0-4.8) k/uL Sodium (137-145) mmol/L Chloride (98-107) mmol/L Carbon Dioxide (22-30) mmol/L BUN (7-17) mg/dL Creatinine (0.52-1.04) mg/dL Glucose (74-99) mg/dL POC Glucose (mg/dL) 208 H 202 H 164 H (70-110) mg/dL Calcium (8.4-10.2) mg/dL Microbiology - Last 24 Hours (Table) 10/09/23 16:02 Blood Culture - Preliminary Blood 10/09/23 18:58 Urine Culture - Preliminary Urine,Voided Assessment and Plan Assessment: Acute kidney injury likely due to ATN due to hypotension and possible infection. Creatinine 3.72 on admission baseline creatinine around 1.8 Hyperkalemia due to MARYLOU. Improving Non-anion gap metabolic acidosis secondary to above Rectal prolapse Recent nausea vomiting and diarrhea. CKD stage III stage IIIb due to nephrosclerosis/nephropathy and cardiorenal.. Hypotension Urinary tract infection Possible pneumonia with left lower lobe consolidation on chest x-ray. Hypertension. Patient is currently hypotensive. Recent admission due Asystole/cardiopulmonary rest and hypoxic respiratory failure. Discharged to [facility] on 09/27/2023. History of antral gastritis Anemia of chronic disease and iron deficiency anemia Coronary artery disease with history of stent placement to and May 2023. Chronic CHF with systolic dysfunction Ischemic cardiomyopathy with improved EF Subacute fracture of the medial and lateral malleolus, orthopedics following with no plans of immediate surgical intervention at this time Right heel stage III pressure injury continue local wound care with aquacel ID following. Genital lesions, will need copy room technician follow up outpatient for routine screenings Hyperlipidemia Type 2 diabetes mellitus uncontrolled hgb a1c 12.1 Severe pulmonary hypertension COPD without any acute exacerbation Peripheral neuropathy GI prophylaxis with PPI DVT prophylaxis heparin SQ every 12 Plan: Patient is in the MICU. Continued on bicarb drip reduced to 40 cc/h. Off pressor support. Current antibiotics ceftriaxone and will add azithromycin for possible pneumonia. Follow-up urine culture and blood culture. Procalcitonin is 0.3 Blood pressure medications and diuretics on hold. Insulin sliding scale for blood sugar control. Nephrology recommends [employer] if patient becomes oliguric. Continue to follow closely. Patient was seen by general surgery due to rectal prolapse and recommended surgery on 10/14/2023. Plavix on hold. Prognosis is guarded. Time with Patient: Greater than 30
--- NOTE | 2023-10-13 20:38 | P.PN ---
Subjective Progress Note Date: 10/12/23 Patient is a 58-year-old female with a past medical history of hypertension, hyperlipidemia, diabetes type 2, CKD stage III with baseline creatinine around 1.8, ischemic cardiomyopathy with improved EF, GBS, history of hemodialysis and prior history of smoking was sent from [facility] due to worsening renal function with elevated creatinine level.. Patient was recently discharged from the hospital on 09/27/2023. Admitted on 08/19/2023. Patient was status post cardiac arrest and respiratory failure requ iring intubation. Patient was treated for acute CHF and hypoxic respiratory failure, ischemic cardiomyopathy ejection fraction improved. Patient was discharged to [facility]. Patient also has right heel stage III pressure ulcer and subacute fracture of the medial and lateral malleolus, no plans for immediate surgical intervention as per orthopedic surgery. She was also treated for E. coli urinary tract infection. Patient was having episodes of vomiting couple days ago and also had diarrhea ye sterday. Continue to have nausea and decreased oral intake. Otherwise denies any complaints of abdominal pain. No complaints of diarrhea at today. Patient was recently discharged home with antibiotics, doxycycline on 09/27/2023. Denied any fever or chills. No chest pain or shortness of breath. No cough or sputum production. Chest x-ray showed correlate for mild CHF. Left lower lobe consolidation could be on the basis of pneumonia or chronic atelectasis. Stable from prior exam. EKG showed sinus bradycardia with heart rate 55. Laboratory data showed hemoglobin 8.0, WBC 4.3 and platelets 125 Sodium 134 potassium 6.0 chloride 109 bicarb is 15 BUN 130 and creatinine 3.72 and blood sugar 100 lactic acid 0.6 and calcium 6.3. Magnesium 2.4 alk phos 201 TSH 8.1 and free T40.94 0.97 Urinalysis showed turbid with large blood large leukocyte esterase and elevated RBCs and WBCs. Influenza A B and RSV COVID-19 PCR not detected. Patient was hypotensive with blood pressure 85/59 with pulse of 59 respirations 17 and pulse ox 100% on 2 L oxygen on admission. 10/10/2023 Patient is in the MICU. Awake alert and oriented. No complaints of chest pain or abdominal pain. No nausea or vomiting. Patient's blood pressure is low and remains on pressor support. Also on bicarb drip. Patient is able to make urine. Chest x-ray showed NG tube in good position. Renal ultrasound showed suboptimal study but no gross hydronephrosis identified bilaterally Laboratory data showed WBC 6.8 hemoglobin 7.8 and platelets 128, sodium 138 potassium 5.7 chloride 112 bicarb is 14 BUN 123 and creatinine 3.9 and blood sugar 137 A1c 6.4 calcium 6.1 and procalcitonin level is 0.32 patient remains on antibiotics of ceftriaxone. 10/11/2023 Patient is in the MICU. Awake alert and oriented. Currently on 2 L oxygen via nasal cannula. Otherwise patient is being continued on bicarb drip. Was also given dose of IV Lasix per nephrology for possible pulm overload. Patient does have urine output which is improving. Otherwise patient is being continued on ceftriaxone. Urine culture and blood cultures are pending. Laboratory data showed WBC 4.7 hemoglobin 8.0 and platelets 97 sodium 136 potassium 5.1 chloride 108 bicarb is 17 BUN 119 and creatinine 3.89 and blood sugar 150 and calcium 5.9 and vitamin D level is low at 19.4. Nephrology and pulmonary is on board. 10/12/2023 Patient is in the medical floor. Awake alert and oriented. No complaints of chest pain or shortness of breath. Patient does have good urine output. No nausea vomiting. Tolerating oral diet. Laboratory data showed sodium 138 potassium 4.85 chloride 106 bicarb is 23 BUN 119 and creatinine 3.58 and blood sugar 135 calcium 5.6 and phosphorus 9.3 and albumin 2.5. Patient is being continued on ceftriaxone. Urine culture showed E. coli and Proteus. Patient is also on vitamin D supplementation. Current medications reviewed. Objective - Vital Signs Vital signs: Vital Signs Temp 97.8 F 10/12/23 15:23 Pulse 72 10/12/23 15:23 Resp 16 10/12/23 15:23 BP 119/70 10/12/23 15:23 Pulse Ox 97 10/12/23 15:23 FiO2 Intake & Output 10/12/23 10/12/23 10/13/23 06:59 18:59 06:59 Intake Total 540 240 Output Total 900 Balance 540 -660 Weight 81 kg Intake: Oral 540 240 Output: Urine 900 Other: Voiding Method Indwelling Catheter Indwelling Catheter - Exam PHYSICAL EXAMINATION: Patient is lying in the bed comfortably, no acute distress, awake alert and oriented.. HEENT: Normocephalic. Neck is supple. Pupils reactive. Nostrils clear. Oral cavity is moist. Neck reveals no JVD, carotid bruits, or thyromegaly. CHEST EXAMINATION: Trachea is central. Symmetrical expansion. Bibasilar diminished sounds. No wheezing or rhonchi. CARDIAC: Normal S1, S2 with no gallops. No murmurs ABDOMEN: Soft. Bowel sounds normal. No organomegaly. No abdominal bruits. Extremities: reveal no edema. Heel wounds are bandaged. No clubbing or cyanosis Neurologically awake, alert, oriented x3. Able to move all extremities.. Gross no focal deficits noted Skin: No rash. Patient does have bilateral heel ulcers bandaged. Psychiatric: Coperative. Nonsuicidal Musculoskeletal: No joint swelling or deformity. - Labs CBC & Chem 7: 10/11/23 03:57 10/12/23 13:22 Labs: Abnormal Lab Results - Last 24 Hours (Table) 10/11/23 10/12/23 10/12/23 Range/Units 03:57 06:08 11:13 BUN (7-17) mg/dL Creatinine (0.52-1.04) mg/dL Glucose (74-99) mg/dL POC Glucose (mg/dL) 145 H 167 H (70-110) mg/dL Calcium (8.4-10.2) mg/dL Phosphorus (2.5-4.5) mg/dL Albumin (3.5-5.0) g/dL Vitamin D 25-Hydroxy 19.4 L (30.0-100.0) ng/mL 10/12/23 10/12/23 10/12/23 Range/Units 13:22 16:06 20:10 BUN 119 H* (7-17) mg/dL Creatinine 3.58 H (0.52-1.04) mg/dL Glucose 135 H (74-99) mg/dL POC Glucose (mg/dL) 138 H 137 H (70-110) mg/dL Calcium 5.6 L* (8.4-10.2) mg/dL Phosphorus 9.3 H* (2.5-4.5) mg/dL Albumin 2.5 L (3.5-5.0) g/dL Vitamin D 25-Hydroxy (30.0-100.0) ng/mL Microbiology - Last 24 Hours (Table) 10/09/23 15:48 Blood Culture - Preliminary Blood 10/09/23 16:02 Blood Culture - Preliminary Blood 10/09/23 18:58 Urine Culture - Final Urine,Voided Escherichia coli Proteus mirabilis Assessment and Plan Assessment: Acute kidney injury likely due to ATN due to hypotension and possible infection. Creatinine 3.72 on admission baseline creatinine around 1.8 Hyperkalemia due to MARYLOU. Improving Non-anion gap metabolic acidosis secondary to above Rectal prolapse Recent nausea vomiting and diarrhea. CKD stage III stage IIIb due to nephrosclerosis/nephropathy and cardiorenal.. Hypotension. Stable. E. coli and Proteus Mirabella's urinary tract infection Possible pneumonia with left lower lobe consolidation on chest x-ray. Hypertension. Patient is currently hypotensive. Recent admission due Asystole/cardiopulmonary rest and hypoxic respiratory failure. Discharged to [facility] on 09/27/2023. History of antral gastritis Anemia of chronic disease and iron deficiency anemia Coronary artery disease with history of stent placement to [facility] and May 2023. Chronic CHF with systolic dysfunction Ischemic cardiomyopathy with improved EF Subacute fracture of the medial and lateral malleolus, orthopedics following with no plans of immediate surgical intervention at this time Right heel stage III pressure injury continue local wound care with aquacel ID following. Genital lesions, will need secretary to the vice president follow up outpatient for routine screenings Hyperlipidemia Type 2 diabetes mellitus uncontrolled hgb a1c 12.1 Severe pulmonary hypertension COPD without any acute exacerbation Peripheral neuropathy GI prophylaxis with PPI DVT prophylaxis heparin SQ every 12 Plan: Patient was transferred to medical floor. Off bicarb drip and pressor support. Started on oral sodium bicarbonate. Current antibiotics ceftriaxone and will add azithromycin for possible pneumonia. Urine culture showed Proteus and E. coli. Blood cultures negative. Procalcitonin was 0.3 Blood pressure medications and diuretics on hold. Insulin sliding scale for blood sugar control. Nephrology recommends PULMONARY PHYSICAL THERAPIST if patient becomes oliguric. Continue to follow closely. Patient was seen by general surgery due to rectal prolapse and recommended surgery on 10/14/2023. Plavix on hold. Prognosis is guarded. Time with Patient: Greater than 30
--- NOTE | 2023-10-13 20:41 | P.PN ---
Subjective Progress Note Date: 10/13/23 Patient is a 58-year-old female with a past medical history of hypertension, hyperlipidemia, diabetes type 2, CKD stage III with baseline creatinine around 1.8, ischemic cardiomyopathy with improved EF, GBS, history of hemodialysis and prior history of smoking was sent from [facility] due to worsening renal function with elevated creatinine level.. Patient was recently discharged from the hospital on 09/27/2023. Admitted on 08/19/2023. Patient was status post cardiac arrest and respiratory failure requ iring intubation. Patient was treated for acute CHF and hypoxic respiratory failure, ischemic cardiomyopathy ejection fraction improved. Patient was discharged to [facility]. Patient also has right heel stage III pressure ulcer and subacute fracture of the medial and lateral malleolus, no plans for immediate surgical intervention as per orthopedic surgery. She was also treated for E. coli urinary tract infection. Patient was having episodes of vomiting couple days ago and also had diarrhea ye sterday. Continue to have nausea and decreased oral intake. Otherwise denies any complaints of abdominal pain. No complaints of diarrhea at today. Patient was recently discharged home with antibiotics, doxycycline on 09/27/2023. Denied any fever or chills. No chest pain or shortness of breath. No cough or sputum production. Chest x-ray showed correlate for mild CHF. Left lower lobe consolidation could be on the basis of pneumonia or chronic atelectasis. Stable from prior exam. EKG showed sinus bradycardia with heart rate 55. Laboratory data showed hemoglobin 8.0, WBC 4.3 and platelets 125 Sodium 134 potassium 6.0 chloride 109 bicarb is 15 BUN 130 and creatinine 3.72 and blood sugar 100 lactic acid 0.6 and calcium 6.3. Magnesium 2.4 alk phos 201 TSH 8.1 and free T40.94 0.97 Urinalysis showed turbid with large blood large leukocyte esterase and elevated RBCs and WBCs. Influenza A B and RSV COVID-19 PCR not detected. Patient was hypotensive with blood pressure 85/59 with pulse of 59 respirations 17 and pulse ox 100% on 2 L oxygen on admission. 10/10/2023 Patient is in the MICU. Awake alert and oriented. No complaints of chest pain or abdominal pain. No nausea or vomiting. Patient's blood pressure is low and remains on pressor support. Also on bicarb drip. Patient is able to make urine. Chest x-ray showed NG tube in good position. Renal ultrasound showed suboptimal study but no gross hydronephrosis identified bilaterally Laboratory data showed WBC 6.8 hemoglobin 7.8 and platelets 128, sodium 138 potassium 5.7 chloride 112 bicarb is 14 BUN 123 and creatinine 3.9 and blood sugar 137 A1c 6.4 calcium 6.1 and procalcitonin level is 0.32 patient remains on antibiotics of ceftriaxone. 10/11/2023 Patient is in the MICU. Awake alert and oriented. Currently on 2 L oxygen via nasal cannula. Otherwise patient is being continued on bicarb drip. Was also given dose of IV Lasix per nephrology for possible pulm overload. Patient does have urine output which is improving. Otherwise patient is being continued on ceftriaxone. Urine culture and blood cultures are pending. Laboratory data showed WBC 4.7 hemoglobin 8.0 and platelets 97 sodium 136 potassium 5.1 chloride 108 bicarb is 17 BUN 119 and creatinine 3.89 and blood sugar 150 and calcium 5.9 and vitamin D level is low at 19.4. Nephrology and pulmonary is on board. 10/12/2023 Patient is in the medical floor. Awake alert and oriented. No complaints of chest pain or shortness of breath. Patient does have good urine output. No nausea vomiting. Tolerating oral diet. Laboratory data showed sodium 138 potassium 4.85 chloride 106 bicarb is 23 BUN 119 and creatinine 3.58 and blood sugar 135 calcium 5.6 and phosphorus 9.3 and albumin 2.5. Patient is being continued on ceftriaxone. Urine culture showed E. coli and Proteus. Patient is also on vitamin D supplementation. 10/13/2023 Patient is resting in the bed. Awake alert and oriented. No complaints of chest pain or shortness of breath. No nausea or vomiting. Patient does have good urine output. Previous laboratory data reviewed. Patient is tolerating oral diet. Scheduled for rectal prolapse. Tomorrow. Continue with vitamin D supplementati on and calcium. Albumin 2.5. Nephrology, pulmonary and general surgery is on board. Follow-up CBC and BMP tomorrow. Current medications reviewed. Objective - Vital Signs Vital signs: Vital Signs Temp 98.0 F 10/13/23 07:37 Pulse 75 10/13/23 07:37 Resp 20 10/13/23 07:37 BP 126/71 10/13/23 07:37 Pulse Ox 92 L 10/13/23 07:37 FiO2 Intake & Output 10/12/23 10/13/23 10/13/23 18:59 06:59 18:59 Intake Total 240 540 Output Total 900 600 Balance -660 -60 Weight 79 kg Intake: Oral 240 540 Output: Urine 900 600 Other: Voiding Method Indwelling Catheter Indwelling Catheter Indwelling Catheter # Bowel Movements 1 - Exam PHYSICAL EXAMINATION: Patient is lying in the bed comfortably, no acute distress, awake alert and oriented.. HEENT: Normocephalic. Neck is supple. Pupils reactive. Nostrils clear. Oral cavity is moist. Neck reveals no JVD, carotid bruits, or thyromegaly. CHEST EXAMINATION: Trachea is central. Symmetrical expansion. Bibasilar diminished sounds. No wheezing or rhonchi. CARDIAC: Normal S1, S2 with no gallops. No murmurs ABDOMEN: Soft. Bowel sounds normal. No organomegaly. No abdominal bruits. Extremities: reveal no edema. Heel wounds are bandaged. No clubbing or cyanosis Neurologically awake, alert, oriented x3. Able to move all extremities.. Gross no focal deficits noted Skin: No rash. Patient does have bilateral heel ulcers bandaged. Psychiatric: Coperative. Nonsuicidal Musculoskeletal: No joint swelling or deformity. - Labs CBC & Chem 7: 10/11/23 03:57 10/12/23 13:22 Labs: Abnormal Lab Results - Last 24 Hours (Table) 10/12/23 10/12/23 10/12/23 Range/Units 11:13 13:22 16:06 BUN 119 H* (7-17) mg/dL Creatinine 3.58 H (0.52-1.04) mg/dL Glucose 135 H (74-99) mg/dL POC Glucose (mg/dL) 167 H 138 H (70-110) mg/dL Calcium 5.6 L* (8.4-10.2) mg/dL Phosphorus 9.3 H* (2.5-4.5) mg/dL Albumin 2.5 L (3.5-5.0) g/dL 10/12/23 10/13/23 Range/Units 20:10 06:05 BUN (7-17) mg/dL Creatinine (0.52-1.04) mg/dL Glucose (74-99) mg/dL POC Glucose (mg/dL) 137 H 117 H (70-110) mg/dL Calcium (8.4-10.2) mg/dL Phosphorus (2.5-4.5) mg/dL Albumin (3.5-5.0) g/dL Microbiology - Last 24 Hours (Table) 10/09/23 15:48 Blood Culture - Preliminary Blood 10/09/23 16:02 Blood Culture - Preliminary Blood Assessment and Plan Assessment: Acute kidney injury likely due to ATN due to hypotension and possible infection. Creatinine 3.72 on admission baseline creatinine around 1.8 Hyperkalemia due to MARYLOU. Improving Non-anion gap metabolic acidosis secondary to above Rectal prolapse Recent nausea vomiting and diarrhea. CKD stage III stage IIIb due to nephrosclerosis/nephropathy and cardiorenal.. Hypotension. Stable. E. coli and Proteus Mirabella's urinary tract infection Possible pneumonia with left lower lobe consolidation on chest x-ray. Vitamin D deficiency Hypertension. Patient is currently hypotensive. Recent admission due Asystole/cardiopulmonary rest and hypoxic respiratory failure. Discharged to [facility] on 09/27/2023. History of antral gastritis Anemia of chronic disease and iron deficiency anemia Coronary artery disease with history of stent placement to [facility] and May 2023. Chronic CHF with systolic dysfunction Ischemic cardiomyopathy with improved EF Subacute fracture of the medial and lateral malleolus, orthopedics following with no plans of immediate surgical intervention at this time Right heel stage III pressure injury continue local wound care with aquacel ID following. Genital lesions, will need machinist first class follow up outpatient for routine screenings Hyperlipidemia Type 2 diabetes mellitus uncontrolled hgb a1c 12.1 Severe pulmonary hypertension COPD without any acute exacerbation Peripheral neuropathy GI prophylaxis with PPI DVT prophylaxis heparin SQ every 12 Plan: Patient was transferred to medical floor. Off bicarb drip and pressor support. Continue with oral sodium bicarbonate. Current antibiotics ceftriaxone and will add azithromycin for possible pneumonia. Urine culture showed Proteus and E. coli. Blood cultures negative. Procalcitonin was 0.3 Blood pressure medications and diuretics on hold. Insulin sliding scale for blood sugar control. Continue with vitamin D and calcium supplementation Nephrology recommends CEMENT BASED MATERIALS PUMP TENDER if patient becomes oliguric. Continue to follow closely. Patient was seen by general surgery due to rectal prolapse and recommended surgery on 10/14/2023. Plavix on hold. Prognosis is guarded. Time with Patient: Greater than 30
[2023-10-13] MEDS: CALCIUM CARBONATE 500 MG CHEWABLE PO SCH (21:24)
[2023-10-13 21:42] LABS: Magnesium 2.1 mg/dL (1.6-2.3); Potassium 3.5 mmol/L (3.5-5.1)
[2023-10-13] MEDS ORDERED: ZINC OXIDE PASTE (Z-GUARD) 1 APPLIC TOPICAL PRN (23:00)
[2023-10-14 06:04] LABS: Glucose,Whole Blood 69 mg/dL (70-110)
[2023-10-14] MEDS: DEXTROSE 50% SYRINGE 50 ML IVP PRN (06:09)
[2023-10-14 06:26] LABS: Glucose,Whole Blood 117 mg/dL (70-110)
[2023-10-14] MEDS: ATORVASTATIN 80 MG TAB PO SCH (09:20)
[2023-10-14 09:38] LABS: Anisocytosis Slight; Basophils % (A) 1 %; Eosinophils # (A) 0.2 k/uL (0-0.7); Eosinophils % (A) 5 %; HCT 28.6 % (34.0-46.0); HGB 8.1 gm/dL (11.4-16.0); Hypochromasia Marked; Lymphocytes # (A) 0.5 k/uL (1.0-4.8); Lymphocytes % (A) 15 %; MCH 28.1 pg (25.0-35.0); MCHC 28.3 g/dL (31.0-37.0); MCV 99.3 fL (80.0-100.0); Macrocytosis Slight; Mean Platelet Volume 10.8; Monocytes # (A) 0.2 k/uL (0-1.0); Monocytes % (A) 6 %; Neutrophils # (A) 2.2 k/uL (1.3-7.7); Neutrophils % (A) 70 %; Poikilocytosis Slight; RBC 2.88 m/uL (3.80-5.40); RDW 18.3 % (11.5-15.5); WBC 3.1 k/uL (3.8-10.6)
[2023-10-14 09:42] LABS: Platelet Count 62 k/uL (150-450)
[2023-10-14 09:50] LABS: African American GFR (CKD) 18 (>60 ml/min/1.73 sqM); Anion Gap 12 mmol/L; Blood Urea Nitrogen 95 mg/dL (7-17); Carbon Dioxide 24 mmol/L (22-30); Chloride 108 mmol/L (98-107); Glucose 68 mg/dL (74-99); Non-African American GFR(CKD) 16 (>60 ml/min/1.73 sqM); Phosphorus 7.7 mg/dL (2.5-4.5); Potassium 3.2 mmol/L (3.5-5.1); Sodium 144 mmol/L (137-145)
--- NOTE | 2023-10-14 10:02 | P.PN ---
Subjective Patient is seen in follow-up for acute kidney injury on chronic kidney disease. Denies chest pain or shortness of breath. Has [place] catheter. Nonoliguric. Vital signs are stable. General: No acute distress. HEENT: Head exam is unremarkable. On nasal cannula. LUNGS: No audible rhonchi or wheezes. HEART: Rate and Rhythm are regular. ABDOMEN: Nontender. EXTREMITITES: 2+ edema. Objective - Vital Signs Vital signs: Vital Signs Temp 97.3 F L 10/14/23 06:35 Pulse 76 10/14/23 04:07 Resp 18 10/14/23 04:07 BP 129/68 10/14/23 04:07 Pulse Ox 90 L 10/14/23 07:48 FiO2 Intake & Output 10/13/23 10/14/23 10/14/23 18:59 06:59 18:59 Intake Total 0 Output Total 600 700 Balance -600 -700 0 Weight 80.5 kg Intake: Oral 0 Output: Urine 600 700 Other: Voiding Method Indwelling Catheter Indwelling Catheter # Voids 0 # Bowel Movements 1 4 0 - Labs CBC & Chem 7: 10/14/23 08:10 10/13/23 21:12 Labs: Abnormal Lab Results - Last 24 Hours (Table) 10/13/23 10/14/23 10/14/23 Range/Units 11:47 06:03 06:24 WBC (3.8-10.6) k/uL RBC (3.80-5.40) m/uL Hgb (11.4-16.0) gm/dL Hct (34.0-46.0) % MCHC (31.0-37.0) g/dL RDW (11.5-15.5) % Plt Count (150-450) k/uL Lymphocytes # (1.0-4.8) k/uL POC Glucose (mg/dL) 112 H 69 L 117 H (70-110) mg/dL 10/14/23 Range/Units 08:10 WBC 3.1 L (3.8-10.6) k/uL RBC 2.88 L (3.80-5.40) m/uL Hgb 8.1 L (11.4-16.0) gm/dL Hct 28.6 L (34.0-46.0) % MCHC 28.3 L (31.0-37.0) g/dL RDW 18.3 H (11.5-15.5) % Plt Count 62 L (150-450) k/uL Lymphocytes # 0.5 L (1.0-4.8) k/uL POC Glucose (mg/dL) (70-110) mg/dL Assessment and Plan Plan: Assessment: 1. Acute kidney injury secondary to ATN secondary to severe sepsis. 2. Severe sepsis due to UTI on antibiotics. 3. Metabolic acidosis secondary to acute kidney injury improved with bicarb drip. On oral bicarb. 4. Hyperkalemia secondary to acute kidney injury and metabolic acidosis. 5. History of cardiac arrest. 6. Chronic kidney disease stage IIIb with baseline creatinine 1.5-1.8. Patient required renal replacement therapy in the past. 7. Rectal prolapse. Surgery following. 8. Hyperphosphatemia secondary to acute kidney injury. 9. Diabetes mellitus. Plan: Hep-Lock IV fluids. Add IV Lasix Add PhosLo with meals. Add Aranesp. Avoid nephrotoxins. Continue to monitor renal function and urine output. Follow-up echocardiogram.
[2023-10-14 10:03] LABS: Calcium 5.9 mg/dL (8.4-10.2)
[2023-10-14] MEDS: CALCIUM ACETATE 667 MG TAB PO SCH (11:52)
[2023-10-14] MEDS: FUROSEMIDE 10 MG/ML 4 ML VIAL IV SCH (11:52)
[2023-10-14] MEDS: POTASSIUM CHLORIDE ER 20 MEQ TAB.ER PO SCH (11:52)
[2023-10-14] MEDS: CALCIUM GLUCONATE IN NACL 1 GM in SALINE 1 100ML.BAG IVPB ONE (11:53)
[2023-10-14 12:02] LABS: Glucose,Whole Blood 78 mg/dL (70-110)
--- NOTE | 2023-10-14 12:15 | P.CRDCN ---
History of Present Illness Consult date: 10/14/23 Reason for Consult (text): Bradycardia episodes, extensive cardiac history History of present illness: This is a 58-year-old female patient of Dr. oJse with a past medical history significant for coronary artery disease with previous stenting, cardiomyopathy, hypertension, hyperlipidemia, diabetes, severe pulmonary hypertension, COPD, and chronic kidney disease previously on hemodialysis. We have been asked to see the patient in consultation for bradycardic episodes and extensive cardiac history. Patient was recently discharged from the hospital on 09/26 and [facility] to the [facility]. She had previous hospitalization for cardiopulmonary arrest, anoxic encephalopathy. She has history of a stent to the RCA on 05/2023. Patient was brought back into the hospital due to abnormal lab work found to have acute kidney injury with creatinine of 3.72. Along with hyperkalemia, sepsis with possible UTI, fracture of the malleolus, rectal prolapse and scheduled for repair of the rectal prolapse today. Patient denies having any chest pain chest pressure, no palpitations, no dizziness. She previously was having some nausea and vomiting but none at this time. She denies any blood in her urine or stools. No cough or fever. Patient has been on on IV sodium bicarb currently on oral as well as received daily dosed IV Lasix. Patient req uired norepinephrine at the time of admission back on 10/08. Patient's beta- satnam and blood pressure medications have not been resumed. Plavix is also on hold. Patient had episodes of heart rate at 40 on both 10/12 and 10/13. EKG reveals sinus mechanism Chest xray performed on 10/11 revealed no overt failure. Atelectasis favored over pneumonia. Left lower lobe retrocardiac consolidation represents atelectasis or infiltrate. Laboratory data: WBC 4.7, hemoglobin 8, platelet count 97. BUN 119, creatinine 3.58. Calcium 5.6. Phosphorus 9.3. Magnesium 2.1. Albumin 2.5. Procalcitonin 0.32. TSH 8.16. Urinalysis with leukoesterase large, RBCs greater than 182, WBC greater than 182. Squamous cells 19. Current home cardiac medications include amlodipine 5 mg daily, aspirin 81 mg daily, Bumex 1 mg daily, Plavix 75 mg daily, Farxiga 5 mg daily, hydralazine 25 mg 3 times daily, Imdur 30 mg daily, Toprol-XL 12.5 mg daily, Aldactone 12.5 mg daily. Most recent echocardiogram obtained in 08/20/2023 reveals LVH with preserved systolic function. Increased right ventricular systolic pressures. Cardiac catheterization history: 06/24/2023 with stenting of the proximal RCA REVIEW OF SYSTEMS: At the time of my exam: CONSTITUTIONAL: Denies fever or chills. HEENT: Denies blurred vision, vision changes, or eye pain. Denies hemoptysis CARDIOVASCULAR: Denies chest pain. Denies orthopnea. Denies PND. Denies palpitations RESPIRATORY: Denies shortness of breath. GASTROINTESTINAL: Denies abdominal pain. Denies nausea or vomiting. HEMATOLOGIC: Denies bleeding disorders. GENITOURINARY: Denies any blood in urine. SKIN: Denies pruitis. Denies rash. PHYSICAL EXAM: VITAL SIGNS: Reviewed. GENERAL: Well-developed in no acute distress. HEENT: Head is normocephalic. Pupils are equal, round. Sclerae anicteric. Mucous membranes of the mouth are moist. Neck supple. No JVD or thyromegaly LUNGS: Respirations even and unlabored. Lungs diminished with bibasilar crackles HEART: Regular rate and rhythm. S1 and S2 heard. 3/6 systolic murmur at the base and 2/6 systolic murmur at the apex ABDOMEN: Soft. Nondistended. Nontender. EXTREMITIES: Normal range of motion. No clubbing or cyanosis. Peripheral pulses intact. Bilateral lower extremity edema noted. Right worse than left NEUROLOGIC: Awake and alert. ASSESSMENT: Bradycardia, asymptomatic, no sign of high degree AV block Acute kidney injury Hyperkalemia Metabolic acidosis Sepsis secondary to UTI Rectal prolapse scheduled for surgery on 10/13 Hypotension requiring vasopressor Chronic heart failure with reduced EF Coronary artery disease with recent stenting of the proximal RCA, 06/24/2023 Ischemic cardiomyopathy Chronic kidney disease History of renal failure requiring hemodialysis Hypertension Hyperlipidemia Diabetes Severe pulmonary hypertension COPD Former nicotine dependence Malleolus fracture Bicytopenia PLAN: No need to repeat echocardiogram Patient is currently on IV Lasix 40 mg daily per nephrology Daily weights, accurate intake and output, and monitoring of kidney function Resume patient on a atorvastatin Plan to resume Plavix following surgery once cleared by general surgery Patient is at high risk for surgical intervention due to multiple comorbidities. Further recommendations pending patient course Nurse practitioner note has been reviewed by physician. Signing provider agrees with the documented findings, assessment, and plan of care documented by [employer] as a scribe. Past Medical History Past Medical History: Diabetes Mellitus, Hyperlipidemia, Hypertension, Renal Disease Additional Past Medical History / Comment(s): restless leg, neurothopy, Guillain-[place], dialysis History of Any Multi-Drug Resistant Organisms: None Reported Past Surgical History: Orthopedic Surgery, Tonsillectomy Additional Past Surgical History / Comment(s): "plate in left leg to straighten leg as a child" - plate removed, right total hip replacement due to a fracture from a fall, dialysis Past Anesthesia/Blood Transfusion Reactions: No Reported Reaction Past Psychological History: No Psychological Hx Reported Smoking Status: Former smoker Past Alcohol Use History: None Reported Past Drug Use History: None Reported Medications and Allergies Home Medications Medication Instructions Recorded Confirmed Type rOPINIRole HCL [Requip] 1 mg PO HS 04/17/23 10/09/23 History Aspirin 81 mg PO DAILY 90 Days #90 tab 06/25/23 10/09/23 Rx Acetaminophen Tab [Tylenol] 650 mg PO Q6HR PRN tab 09/27/23 10/09/23 Rx Bumetanide [BUMEX] 1 mg PO DAILY tab 09/27/23 10/09/23 Rx Clopidogrel [Plavix] 75 mg PO DAILY tab 09/27/23 10/09/23 Rx Docusate [Colace] 100 mg PO BID cap 09/27/23 10/09/23 Rx Fluticasone Nasal [place] [Flonase 2 spray EA NOSTRIL DAILY ml 09/27/23 10/09/23 Rx Nasal [place]] Folic Acid 1 mg PO DAILY tab 09/27/23 10/09/23 Rx Isosorbide Mononitrate ER [Imdur] 30 mg PO DAILY tab 09/27/23 10/09/23 Rx Lidocaine 4% Patch 1 patch TOPICAL DAILY patch 09/27/23 10/09/23 Rx Melatonin 5 mg PO HS tab 09/27/23 10/09/23 Rx Metoprolol Succinate (ER) [Toprol 12.5 mg PO DAILY tab 09/27/23 10/09/23 Rx XL] Spironolactone [Aldactone] 12.5 mg PO DAILY tab 09/27/23 10/09/23 Rx Thiamine [Vitamin B-1] 100 mg PO DAILY tab 09/27/23 10/09/23 Rx fluPHENAZine [Prolixin] 5 mg PO Q6HR PRN tab 09/27/23 10/09/23 Rx hydrALAZINE HCL [Apresoline] 25 mg PO TID tab 09/27/23 10/09/23 Rx rOPINIRole HCL [Requip] 1 mg PO HS PRN tab 09/27/23 10/09/23 Rx DULoxetine HCL [Cymbalta] 20 mg PO DAILY 10/09/23 10/09/23 History Dapagliflozin Propanediol [Farxiga] 5 mg PO DAILY 10/09/23 10/09/23 History Darbepoetin Frantz [Aranesp] 40 mcg SQ SA 10/09/23 10/09/23 History Dextrose Chew [Glucose Chew Tab] 4 gm PO DIRECTED PRN 10/09/23 10/09/23 History Healthshake 1 dose PO BID 10/09/23 10/09/23 History Ipratropium-Albuterol Nebulize 3 ml INHALATION RT-Q6H PRN 10/09/23 10/09/23 History [Duoneb 0.5 mg-3 mg/3 ml Soln] Multivitamins, Thera [Multivitamin 1 tab PO DAILY 10/09/23 10/09/23 History (formulary)] Sodium Chloride [Saline Mist] 2 spray EA NOSTRIL TID 10/09/23 10/09/23 History amLODIPine [Norvasc] 5 mg PO DAILY 10/09/23 10/09/23 History risperiDONE [RisperDAL] 2 mg PO BID 10/09/23 10/09/23 History Allergies Allergy/AdvReac Type Severity Reaction Status Date / Time No Known Allergies Allergy Verified 10/09/23 11:40 Physical Exam Vitals: Vital Signs Temp Pulse Pulse Resp BP Pulse Ox 10/14/23 06:35 97.3 F L 10/14/23 04:07 97.1 F L 76 18 129/68 94 L 10/14/23 03:10 96.9 F L 10/14/23 01:00 96.6 F L 10/13/23 23:10 96.0 F L 68 18 161/77 97 10/13/23 20:19 96.6 F L 74 18 146/82 99 10/13/23 18:32 97.5 F L 10/13/23 15:00 95.8 F L 70 16 149/84 99 10/13/23 14:16 92.9 F L 10/13/23 13:45 68 10/13/23 13:44 95.8 F L 10/13/23 12:36 92.3 F L 10/13/23 11:51 99 10/13/23 11:33 68 20 145/83 98 10/13/23 07:37 98.0 F 75 20 126/71 92 L Intake and Output 10/13/23 10/14/23 10/14/23 22:59 06:59 14:59 Output Total 250 450 Balance -250 -450 Output: Urine 250 450 Other: Voiding Method Indwelling Catheter Indwelling Catheter # Bowel Movements 1 4 Weight 80.5 kg Results 10/14/23 08:10 10/14/23 08:10 Comprehensive Metabolic Panel 10/13/23 Range/Units 21:12 Potassium 3.5 (3.5-5.1) mmol/L Current Medications Generic Name Dose Route Start Last Admin Trade Name Freq PRN Reason Stop Dose Admin Acetaminophen 650 mg 10/09/23 15:10 10/11/23 01:45 Acetaminophen Tab 325 Mg Tab PO 650 mg Q6HR PRN Administration Fever and/ or Pain Albuterol/Ipratropium 3 ml 10/09/23 15:10 Ipratropium-Albuterol 3 Ml Neb INHALATION RT-Q6H PRN Shortness Of Breath Aspirin 81 mg 10/10/23 09:00 10/13/23 07:40 Aspirin 81 Mg PO 81 mg DAILY RYLIE Administration Calcium Carbonate/Glycine 500 mg 10/13/23 22:00 10/13/23 21:24 Calcium Carbonate 500 Mg Chewable PO 10/15/23 22:01 500 mg TID RYLIE Administration Cholecalciferol 25 mcg 10/12/23 21:15 10/13/23 07:40 Cholecalciferol 25 Mcg (1000 Iu) Tablet PO 25 mcg DAILY RYLIE Administration Clotrimazole 1 applic 10/12/23 21:00 10/13/23 21:24 Clotrimazole 1% Cream 30 Gm Tube TOPICAL 1 applic BID RYLIE Administration Protocol Dextrose/Water 25 ml 10/09/23 20:38 10/14/23 06:09 Dextrose 50% Syringe 50 Ml IVP 25 ml PER PROTOCOL PRN Administration Hypoglycemia Protocol Dextrose/Water 50 ml 10/09/23 20:38 Dextrose 50% Syringe 50 Ml IVP PER PROTOCOL PRN Hypoglycemia Protocol Docusate Sodium 100 mg 10/09/23 21:00 10/13/23 21:24 Docusate 100 Mg Cap PO 100 mg BID RYLIE Administration Fluticasone Propionate 2 spray 10/10/23 09:00 10/13/23 07:41 Fluticasone 50mcg/[place] Nasal 16gm EA NOSTRIL 2 spray DAILY RYLIE Administration Folic Acid 1 mg 10/10/23 09:00 10/13/23 07:42 Folic Acid 1 Mg Tab PO 1 mg DAILY RYLIE Administration Heparin Sodium (Porcine) 5,000 unit 10/09/23 21:00 10/13/23 21:24 Heparin Sodium,Porcine 5,000 Unit/Ml 1 Ml Vial SQ 5,000 unit Q12HR RYLIE Administration Ceftriaxone Sodium 1 gm/ 50 mls @ 100 mls/hr 10/09/23 16:00 10/13/23 15:09 Sodium Chloride IVPB 100 mls/hr Q24H RYLIE Administration Protocol Sodium Chloride 1,000 mls @ 75 mls/hr 10/13/23 10:15 10/13/23 23:30 Saline 0.9% IV 75 mls/hr .[id number] RYLIE Administration Insulin Aspart 0 unit 10/09/23 21:00 10/14/23 06:08 Insulin Aspart (Novolog) 100 Unit/Ml Vial SQ Not Given ACHS RYLIE Protocol Levothyroxine Sodium 75 mcg 10/12/23 06:30 10/14/23 06:09 Levothyroxine 75 Mcg Tab PO 75 mcg DAILY@0630 RYLIE Administration Melatonin 5 mg 10/09/23 21:00 10/13/23 21:24 Melatonin 5 Mg Tablet PO 5 mg HS RYLIE Administration Naloxone HCl 0.2 mg 10/09/23 15:21 Naloxone 0.4 Mg/Ml 1 Ml Vial IV Q2M PRN Opioid Reversal Ondansetron HCl 4 mg 10/11/23 00:36 10/11/23 22:04 Ondansetron 4 Mg/2 Ml Vial IVP 4 mg Q6HR PRN Administration Nausea And Vomiting Pantoprazole Sodium 40 mg 10/10/23 09:00 10/13/23 07:40 Pantoprazole 40 Mg/10 Ml Vial IV 40 mg DAILY RYLIE Administration Petrolatum 1 applic 10/13/23 23:00 Zinc Oxide Paste (Z-Guard) 1 Applic TOPICAL Q2HR PRN Wound Healing Protocol Sodium Bicarbonate 650 mg 10/11/23 10:15 10/13/23 21:24 Sodium Bicarbonate Tab 650 Mg Tab PO 650 mg BID RYLIE Administration Thiamine HCl 100 mg 10/10/23 09:00 10/13/23 07:40 Thiamine 100 Mg Tab PO 100 mg DAILY RYLIE Administration Intake and Output 10/13/23 10/14/23 10/14/23 22:59 06:59 14:59 Output Total 250 450 Balance -250 -450 Output: Urine 250 450 Other: Voiding Method Indwelling Catheter Indwelling Catheter # Bowel Movements 1 4 Weight 80.5 kg 10/11/23 03:57 10/13/23 21:12
--- NOTE | 2023-10-14 15:09 | P.PN ---
Subjective Progress Note Date: 10/14/23 CHIEF COMPLAINT: Worsening renal function UTI HISTORY OF PRESENT ILLNESS: Patient transferred out of the ICU over the weekend and is currently on the cardiac floor. She denies any rectal pain. Surgery for rectal prolapse has been canceled for today. Patient's phosphorus level elevated and she did not complete the bowel prep. Per cardiology patient is high risk surgical candidate. WBC 3.1 Hgb 8.1 sodium is 144 potassium 3.2 creatinine 3.09 and phosphorus is 7.7 PHYSICAL EXAM: VITAL SIGNS: Reviewed. GENERAL: no acute distress. ABDOMEN: Soft. Nondistended. Nontender. NEUROLOGIC: awake and responding to questions ASSESSMENT: 1. Rectal prolapse 2. Acute on chronic renal failure 3. Hyperkalemia 4. UTI with hypotension 5. History of coronary disease with cardiac stent placed in May 2023 6. Hyperphosphatemia PLAN: -Surgery canceled for today -Plan for repair of rectal prolapse possibly next week if patient is medically stable -Continue to correct electrolytes Physician Air Conditioning Specialist note has been reviewed by physician. Signing provider agrees with the documented findings, assessment, and plan of care. Objective - Vital Signs Vital signs: Vital Signs Temp 97.5 F L 10/14/23 08:00 Pulse 70 10/14/23 08:00 Resp 18 10/14/23 08:00 BP 146/79 10/14/23 08:00 Pulse Ox 91 L 10/14/23 08:00 FiO2 Intake & Output 10/13/23 10/14/23 10/14/23 18:59 06:59 18:59 Intake Total 0 Output Total 600 700 Balance -600 -700 0 Weight 80.5 kg 80.5 kg Intake: Oral 0 Output: Urine 600 700 Other: Voiding Method Indwelling Catheter Indwelling Catheter Indwelling Catheter # Voids 0 # Bowel Movements 1 4 0 - Labs CBC & Chem 7: 10/14/23 08:10 10/14/23 08:10 Labs: Abnormal Lab Results - Last 24 Hours (Table) 10/14/23 10/14/23 10/14/23 Range/Units 06:03 06:24 08:10 WBC 3.1 L (3.8-10.6) k/uL RBC 2.88 L (3.80-5.40) m/uL Hgb 8.1 L (11.4-16.0) gm/dL Hct 28.6 L (34.0-46.0) % MCHC 28.3 L (31.0-37.0) g/dL RDW 18.3 H (11.5-15.5) % Plt Count 62 L (150-450) k/uL Lymphocytes # 0.5 L (1.0-4.8) k/uL Potassium (3.5-5.1) mmol/L Chloride (98-107) mmol/L BUN (7-17) mg/dL Creatinine (0.52-1.04) mg/dL Glucose (74-99) mg/dL POC Glucose (mg/dL) 69 L 117 H (70-110) mg/dL Calcium (8.4-10.2) mg/dL Phosphorus (2.5-4.5) mg/dL 10/14/23 Range/Units 08:10 WBC (3.8-10.6) k/uL RBC (3.80-5.40) m/uL Hgb (11.4-16.0) gm/dL Hct (34.0-46.0) % MCHC (31.0-37.0) g/dL RDW (11.5-15.5) % Plt Count (150-450) k/uL Lymphocytes # (1.0-4.8) k/uL Potassium 3.2 L (3.5-5.1) mmol/L Chloride 108 H (98-107) mmol/L BUN 95 H (7-17) mg/dL Creatinine 3.09 H (0.52-1.04) mg/dL Glucose 68 L (74-99) mg/dL POC Glucose (mg/dL) (70-110) mg/dL Calcium 5.9 L* (8.4-10.2) mg/dL Phosphorus 7.7 H (2.5-4.5) mg/dL
--- NOTE | 2023-10-14 16:38 | P.PN ---
Subjective Progress Note Date: 10/14/23 Patient is a 58-year-old female with a past medical history of hypertension, hyperlipidemia, diabetes type 2, CKD stage III with baseline creatinine around 1.8, ischemic cardiomyopathy with improved EF, GBS, history of hemodialysis and prior history of smoking was sent from [facility] due to worsening renal function with elevated creatinine level.. Patient was recently discharged from the hospital on 09/27/2023. Admitted on 08/19/2023. Patient was status post cardiac arrest and respiratory failure requi ring intubation. Patient was treated for acute CHF and hypoxic respiratory failure, ischemic cardiomyopathy ejection fraction improved. Patient was discharged to [facility]. Patient also has right heel stage III pressure ulcer and subacute fracture of the medial and lateral malleolus, no plans for immediate surgical intervention as per orthopedic surgery. She was also treated for E. coli urinary tract infection. Patient was having episodes of vomiting couple days ago and also had diarrhea yesterday. Continue to have nausea and decreased oral intake. Otherwise denies any complaints of abdominal pain. No complaints of diarrhea at today. Patient was recently discharged home with antibiotics, doxycycline on 09/27/2023. Denied any fever or chills. No chest pain or shortness of breath. No cough or sputum production. Chest x-ray showed correlate for mild CHF. Left lower lobe consolidation could be on the basis of pneumonia or chronic atelectasis. Stable from prior exam. EKG showed sinus bradycardia with heart rate 55. Laboratory data showed hemoglobin 8.0, WBC 4.3 and platelets 125 Sodium 134 potassium 6.0 chloride 109 bicarb is 15 BUN 130 and creatinine 3.72 and blood sugar 100 lactic acid 0.6 and calcium 6.3. Magnesium 2.4 alk phos 201 TSH 8.1 and free T40.94 0.97 Urinalysis showed turbid with large blood large leukocyte esterase and elevated RBCs and WBCs. Influenza A B and RSV COVID-19 PCR not detected. Patient was hypotensive with blood pressure 85/59 with pulse of 59 respirations 17 and pulse ox 100% on 2 L oxygen on admission. 10/10/2023 Patient is in the MICU. Awake alert and oriented. No complaints of chest pain or abdominal pain. No nausea or vomiting. Patient's blood pressure is low and remains on pressor support. Also on bicarb drip. Patient is able to make urine. Chest x-ray showed NG tube in good position. Renal ultrasound showed suboptimal study but no gross hydronephrosis identified bilaterally Laboratory data showed WBC 6.8 hemoglobin 7.8 and platelets 128, sodium 138 potassium 5.7 chloride 112 bicarb is 14 BUN 123 and creatinine 3.9 and blood sugar 137 A1c 6.4 calcium 6.1 and procalcitonin level is 0.32 patient remains on antibiotics of ceftriaxone. 10/11/2023 Patient is in the MICU. Awake alert and oriented. Currently on 2 L oxygen via nasal cannula. Otherwise patient is being continued on bicarb drip. Was also given dose of IV Lasix per nephrology for possible pulm overload. Patient does have urine output which is improving. Otherwise patient is being continued on ceftriaxone. Urine culture and blood cultures are pending. Laboratory data showed WBC 4.7 hemoglobin 8.0 and platelets 97 sodium 136 potassium 5.1 chloride 108 bicarb is 17 BUN 119 and creatinine 3.89 and blood sugar 150 and calcium 5.9 and vitamin D level is low at 19.4. Nephrology and pulmonary is on board. 10/12/2023 Patient is in the medical floor. Awake alert and oriented. No complaints of chest pain or shortness of breath. Patient does have good urine output. No nausea vomiting. Tolerating oral diet. Laboratory data showed sodium 138 potassium 4.85 chloride 106 bicarb is 23 BUN 119 and creatinine 3.58 and blood sugar 135 calcium 5.6 and phosphorus 9.3 and albumin 2.5. Patient is being continued on ceftriaxone. Urine culture showed E. coli and Proteus. Patient is also on vitamin D supplementation. 10/13/2023 Patient is resting in the bed. Awake alert and oriented. No complaints of chest pain or shortness of breath. No nausea or vomiting. Patient does have good urine output. Previous laboratory data reviewed. Patient is tolerating oral diet. Scheduled for rectal prolapse. Tomorrow. Continue with vitamin D supplementation and calcium. Albumin 2.5. Nephrology, pulmonary and general surgery is on board. Follow-up CBC and BMP tomorrow. Current medications reviewed. 10/14/2023 Patient is evaluated today on the medical floor sitting up in bed she is awake alert and oriented has family at the bedside. General surgery is following for the rectal prolapse recommending to hold off on surgery at this time due to current clinical condition. Patient is tolerating oral intake at this time. Continues on IV Ceftin at this time for urine culture showing E. coli and Proteus we would ask ID to evaluate for antibiotic coverage for these. Blood work today reveals a white count of 3.1, hemoglobin 8.1, platelet count of 69, sodium 144, potassium 3.2, BUN 95, creatinine 3.09. Calcium 5.9, phosphorus 7.7. Hemodynamically she is stable. Temp today 97.5, 96.7. Review of Systems Constitutional: Denied any fatigue denied any fever. Cardio vascular: denied any chest pain, palpitations Gastrointestinal: denied any nausea, vomiting, diarrhea Pulmonary: Denied any shortness of breath cough Neurologic denied any new focal deficits All inpatient medications were reviewed and appropriate changes in these medications as dictated in the interval history and assessment and plan PHYSICAL EXAMINATION: GENERAL: The patient is alert and oriented x3, not in any acute distress. Well developed, well nourished. HEENT: Pupils are round and equally reacting to light. EOMI. No scleral icterus. No conjunctival pallor. Normocephalic, atraumatic. No pharyngeal erythema. No thyromegaly. CARDIOVASCULAR: S1 and S2 present. No murmurs, rubs, or gallops. PULMONARY: Chest is clear to auscultation, no wheezing or crackles. ABDOMEN: Soft, nontender, nondistended, normoactive bowel sounds. No palpable organomegaly. MUSCULOSKELETAL: No joint swelling or deformity. EXTREMITIES: No cyanosis, clubbing, or pedal edema. NEUROLOGICAL: Gross neurological examination did not reveal any focal deficits. SKIN: No rashes. Assessment and Plan Acute kidney injury likely due to ATN due to hypotension and possible infection. Creatinine 3.72 on admission baseline creatinine around 1.8 Hyperkalemia due to MARYLOU. Improving Non-anion gap metabolic acidosis secondary to above Rectal prolapse CKD stage III stage IIIb due to nephrosclerosis/nephropathy and cardiorenal. Hypotension. Stable. E. coli and Proteus Mirabella's urinary tract infection Possible pneumonia with left lower lobe consolidation on chest x-ray. Vitamin D deficiency Hypertension. Patient is currently hypotensive. Recent admission due Asystole/cardiopulmonary rest and hypoxic respiratory failure. Discharged to [facility] on 09/27/2023. Anemia of chronic disease and iron deficiency anemia, thrombocytopenia Coronary artery disease with history of stent placement to RCA and May 2023. Chronic CHF with systolic dysfunction Ischemic cardiomyopathy with improved EF Subacute fracture of the medial and lateral malleolus from previous admission. Right heel stage III pressure injury continue local wound care with aquacel ID following. Hyperlipidemia Type 2 diabetes mellitus uncontrolled hgb a1c 12.1 Severe pulmonary hypertension COPD without any acute exacerbation Peripheral neuropathy GI prophylaxis with PPI DVT prophylaxis heparin SQ every 12 Full Code Plan Patient continues with the rachelle cuellar due to hypotermia and recommend to continue and monitor rectal temps. Temps are improving. Rectal prolapse surgery on hold for now Replace electrolytes given oral potassium and IV calcium gluconate, continues on oral calcium supplementation,. ID consultation for UTI Wound care consultation for the right heel. Continue accuchecks ACHS sliding scale insulin. IV lasix daily per nephrology PT/OT consultation Replace electrolytes and monitor renal function. Blood work in the AM. The impression and plan of care has been dictated by Susana Roman, Nurse Practitioner as directed. Dr. Ricardo MD I have performed a history and physical examination and medical decision making of this patient, discussed the same with the dictator, and agree with the d ictators assessment and plan as written, documented as a scribe. Based on total visit time, I have performed more than 50% of this visit. Objective - Vital Signs Vital signs: Vital Signs Temp 96.7 F L 10/14/23 12:00 Pulse 70 10/14/23 14:00 Resp 18 10/14/23 14:00 BP 153/81 10/14/23 12:00 Pulse Ox 99 10/14/23 12:00 FiO2 Intake & Output 10/13/23 10/14/23 10/14/23 18:59 06:59 18:59 Intake Total 0 Output Total 600 700 Balance -600 -700 0 Weight 80.5 kg 80.5 kg Intake: Oral 0 Output: Urine 600 700 Other: Voiding Method Indwelling Catheter Indwelling Catheter Indwelling Catheter # Voids 0 # Bowel Movements 1 4 0 - Labs CBC & Chem 7: 10/14/23 08:10 10/14/23 08:10 Labs: Abnormal Lab Results - Last 24 Hours (Table) 10/14/23 10/14/23 10/14/23 Range/Units 06:03 06:24 08:10 WBC 3.1 L (3.8-10.6) k/uL RBC 2.88 L (3.80-5.40) m/uL Hgb 8.1 L (11.4-16.0) gm/dL Hct 28.6 L (34.0-46.0) % MCHC 28.3 L (31.0-37.0) g/dL RDW 18.3 H (11.5-15.5) % Plt Count 62 L (150-450) k/uL Lymphocytes # 0.5 L (1.0-4.8) k/uL Potassium (3.5-5.1) mmol/L Chloride (98-107) mmol/L BUN (7-17) mg/dL Creatinine (0.52-1.04) mg/dL Glucose (74-99) mg/dL POC Glucose (mg/dL) 69 L 117 H (70-110) mg/dL Calcium (8.4-10.2) mg/dL Phosphorus (2.5-4.5) mg/dL 10/14/23 Range/Units 08:10 WBC (3.8-10.6) k/uL RBC (3.80-5.40) m/uL Hgb (11.4-16.0) gm/dL Hct (34.0-46.0) % MCHC (31.0-37.0) g/dL RDW (11.5-15.5) % Plt Count (150-450) k/uL Lymphocytes # (1.0-4.8) k/uL Potassium 3.2 L (3.5-5.1) mmol/L Chloride 108 H (98-107) mmol/L BUN 95 H (7-17) mg/dL Creatinine 3.09 H (0.52-1.04) mg/dL Glucose 68 L (74-99) mg/dL POC Glucose (mg/dL) (70-110) mg/dL Calcium 5.9 L* (8.4-10.2) mg/dL Phosphorus 7.7 H (2.5-4.5) mg/dL Assessment and Plan Time with Patient: Less than 30
[2023-10-14 16:47] LABS: Glucose,Whole Blood 74 mg/dL (70-110)
[2023-10-14] MEDS: DARBEPOETIN ALFA 40 MCG/0.4 ML SYRINGE SQ SCH (17:24)
[2023-10-14 20:03] LABS: Glucose,Whole Blood 121 mg/dL (70-110)
[2023-10-15 05:52] LABS: Glucose,Whole Blood 115 mg/dL (70-110)
--- NOTE | 2023-10-15 07:15 | P.CONS ---
History of Present Illness - Reason for Consult Consult date: 10/14/23 UTI with resistance Requesting physician: Susana Roman - Chief Complaint Worsening of the kidney function x few days - History of Present Illness Patient is a 55-year-old female with a past medical history significant for diabetes mellitus hypertension hyperlipidemia renal disease requiring dialysis at 1 point also with the right heel diabetic foot ulcer patient has been brought to the hospital about 5 days ago on 10/09/2023 concerning for worsening of her kidney function apparently the patient did have vomiting for a few days the subsequent has resolved did have some nausea but no abdominal pain patient was hypothermic on presentation to the hospital with a temperature down to 88.981 point however the patient and pressure has normalized subsequently patient did have a white count of 4.3 on admission and is 3.1 today creatinine was 3.72 on admission is down to 3.09 patient did have a urine retention requiring Hays catheter placement and did have a positive UA on admission with large leukocyte Estrace more than 182 WBC cultures now growing E. coli which did have some resistant pathogen however sensitive to ceftriaxone and also growing Proteus Mirabilis prompting this consultation, patient currently denies having any fever or chills has been complaining of feeling nauseated but no further vomiting no chest pain shortness of breath or cough no abdominal pain and did not have any diarrhea or specific pain to the right heel wound Review of Systems Positive point and negatives has been mentioned in the HPI, complete review of systems was performed and all other systems are negative Past Medical History Past Medical History: Diabetes Mellitus, Hyperlipidemia, Hypertension, Renal Disease Additional Past Medical History / Comment(s): restless leg, neurothopy, Guillain-[place], dialysis History of Any Multi-Drug Resistant Organisms: None Reported Past Surgical History: Orthopedic Surgery, Tonsillectomy Additional Past Surgical History / Comment(s): "plate in left leg to straighten leg as a child" - plate removed, right total hip replacement due to a fracture from a fall, dialysis Past Anesthesia/Blood Transfusion Reactions: No Reported Reaction Past Psychological History: No Psychological Hx Reported Smoking Status: Former smoker Past Alcohol Use History: None Reported Past Drug Use History: None Reported Medications and Allergies Home Medications Medication Instructions Recorded Confirmed Type Aspirin 81 mg PO DAILY 90 Days #90 tab 06/25/23 10/09/23 Rx Acetaminophen Tab [Tylenol] 650 mg PO Q6HR PRN tab 09/27/23 10/09/23 Rx Clopidogrel [Plavix] 75 mg PO DAILY tab 09/27/23 10/09/23 Rx Docusate [Colace] 100 mg PO BID cap 09/27/23 10/09/23 Rx Fluticasone Nasal [place] [Flonase 2 spray EA NOSTRIL DAILY ml 09/27/23 10/09/23 Rx Nasal [place]] Folic Acid 1 mg PO DAILY tab 09/27/23 10/09/23 Rx Lidocaine 4% Patch 1 patch TOPICAL DAILY patch 09/27/23 10/09/23 Rx Melatonin 5 mg PO HS tab 09/27/23 10/09/23 Rx Thiamine [Vitamin B-1] 100 mg PO DAILY tab 09/27/23 10/09/23 Rx rOPINIRole HCL [Requip] 1 mg PO HS PRN tab 09/27/23 10/09/23 Rx Darbepoetin Frantz [Aranesp] 40 mcg SQ SA 10/09/23 10/09/23 History Healthshake 1 dose PO BID 10/09/23 10/09/23 History Ipratropium-Albuterol Nebulize 3 ml INHALATION RT-Q6H PRN 10/09/23 10/09/23 History [Duoneb 0.5 mg-3 mg/3 ml Soln] Multivitamins, Thera [Multivitamin 1 tab PO DAILY 10/09/23 10/09/23 History (formulary)] Atorvastatin [Lipitor] 40 mg PO DAILY tab 10/21/23 Rx Bumetanide [BUMEX] 1 mg PO BID@0900,1600 tab 10/21/23 Rx Calcium Acetate [PhosLo] 667 mg PO TID-W/MEALS tab 10/21/23 Rx Cholecalciferol [Vitamin D3 (25 25 mcg PO DAILY tab 10/21/23 Rx Mcg = 1000 Iu)] Clotrimazole Cream [Lotrimin Cream] 1 applic TOPICAL BID each 10/21/23 Rx Dapagliflozin Propanediol [Farxiga] 10 mg PO DAILY tab 10/21/23 Rx HYDROcodone/APAP 5-325MG [[place] 1 each PO Q6HR PRN #4 tab 10/21/23 Rx 5-325] Heparin Sodium,Porcine (1 ml) 5,000 unit SQ Q12HR each 10/21/23 Rx [Heparin Sodium] INSULIN ASPART (NovoLOG) [NovoLOG 0 unit SQ ACHS each 10/21/23 Rx (formulary)] Levothyroxine Sodium [Synthroid] 75 mcg PO DAILY@0630 tab 10/21/23 Rx Pantoprazole Sodium [Protonix] 40 mg PO DAILY #30 tab 10/21/23 Rx cefUROXime axetiL [Ceftin] 500 mg PO BID 5 Days #10 tab 10/21/23 Rx hydrALAZINE HCL [Apresoline] 25 mg PO BID tab 10/21/23 Rx Allergies Allergy/AdvReac Type Severity Reaction Status Date / Time No Known Allergies Allergy Verified 10/09/23 11:40 Physical Exam Vitals: Vital Signs Temp Pulse Pulse Resp BP Pulse Ox 10/14/23 07:48 90 L 10/14/23 06:35 97.3 F L 10/14/23 04:07 97.1 F L 76 18 129/68 94 L 10/14/23 03:10 96.9 F L 10/14/23 01:00 96.6 F L 10/13/23 23:10 96.0 F L 68 18 161/77 97 10/13/23 20:19 96.6 F L 74 18 146/82 99 10/13/23 18:32 97.5 F L 10/13/23 15:00 95.8 F L 70 16 149/84 99 10/13/23 14:16 92.9 F L 10/13/23 13:45 68 10/13/23 13:44 95.8 F L 10/13/23 12:36 92.3 F L 10/13/23 11:51 99 10/13/23 11:33 68 20 145/83 98 Intake and Output 10/13/23 10/14/23 10/14/23 22:59 06:59 14:59 Intake Total 0 Output Total 250 450 Balance -250 -450 0 Intake: Oral 0 Output: Urine 250 450 Other: Voiding Method Indwelling Catheter Indwelling Catheter # Voids 0 # Bowel Movements 1 4 0 Weight 80.5 kg GENERAL DESCRIPTION: Middle-aged female lying in bed, no distress. No tachypnea or accessory muscle of respiration use. HEENT: Shows Pallor , no scleral icterus. Oral mucous membrane is dry. No pharyngeal erythema or thrush NECK: Trachea central, no thyromegaly. LUNGS: Unlabored breathing. Clear to auscultation anteriorly. No wheeze or crackle. HEART: S1, S2, regular rate and rhythm. No loud murmur ABDOMEN: Soft, no tenderness , guarding or rigidity, no organomegaly EXTREMITIES: Heel wound is decreased in size with no slough tissue or drainage SKIN: No rash, no masses palpable. NEUROLOGICAL: The patient is awake, alert, oriented x3, mood and affect normal. Results CBC & Chem 7: 10/19/23 11:46 10/21/23 03:07 Labs: Abnormal Lab Results - Last 24 Hours (Table) 10/13/23 10/14/23 10/14/23 Range/Units 11:47 06:03 06:24 WBC (3.8-10.6) k/uL RBC (3.80-5.40) m/uL Hgb (11.4-16.0) gm/dL Hct (34.0-46.0) % MCHC (31.0-37.0) g/dL RDW (11.5-15.5) % Plt Count (150-450) k/uL Lymphocytes # (1.0-4.8) k/uL Potassium (3.5-5.1) mmol/L Chloride (98-107) mmol/L BUN (7-17) mg/dL Creatinine (0.52-1.04) mg/dL Glucose (74-99) mg/dL POC Glucose (mg/dL) 112 H 69 L 117 H (70-110) mg/dL Calcium (8.4-10.2) mg/dL Phosphorus (2.5-4.5) mg/dL 10/14/23 10/14/23 Range/Units 08:10 08:10 WBC 3.1 L (3.8-10.6) k/uL RBC 2.88 L (3.80-5.40) m/uL Hgb 8.1 L (11.4-16.0) gm/dL Hct 28.6 L (34.0-46.0) % MCHC 28.3 L (31.0-37.0) g/dL RDW 18.3 H (11.5-15.5) % Plt Count 62 L (150-450) k/uL Lymphocytes # 0.5 L (1.0-4.8) k/uL Potassium 3.2 L (3.5-5.1) mmol/L Chloride 108 H (98-107) mmol/L BUN 95 H (7-17) mg/dL Creatinine 3.09 H (0.52-1.04) mg/dL Glucose 68 L (74-99) mg/dL POC Glucose (mg/dL) (70-110) mg/dL Calcium 5.9 L* (8.4-10.2) mg/dL Phosphorus 7.7 H (2.5-4.5) mg/dL Assessment and Plan (1) Type 2 diabetes mellitus with foot ulcer Status: Acute Code(s): E11.621 - TYPE 2 DIABETES MELLITUS WITH FOOT ULCER; L97.509 - NON-PRESSURE CHRONIC ULCER OTH PRT UNSP FOOT W UNSP SEVERITY SNOMED Code(s): 3296654072294 (2) UTI (urinary tract infection) Status: Acute Code(s): N39.0 - URINARY TRACT INFECTION, SITE NOT SPECIFIED SNOMED Code(s): 27244078 Plan: 1patient presented to hospital with worsening of her kidney function and this patient also have significantly positive with some urinary symptoms of retention requiring Hays catheter placement now with urine growing drug-resistant E. coli as well as Proteus as the patient was significantly hypothermic on admission a component of UTI not entirely excluded 2-patient to continue with Rocephin 1 g daily while inpatient hopefully will transition to oral antibiotic on discharge We will follow on clinical condition and cultures to further adjust medication if needed Thank you for this consultation we will follow the patient along with you Dictation was produced using [employer] dictation software. please excuse any grammatical, word or spelling errors. Time with Patient: Greater than 30
[2023-10-15] MEDS: HYDROcodone/APAP 5-325MG 1 EACH TAB PO PRN (10:19)
--- NOTE | 2023-10-15 10:23 | P.PN ---
Subjective Progress Note Date: 10/15/23 Bradycardia episodes, extensive cardiac history History of present illness: This is a 58-year-old female patient of Dr. Jose with a past medical history significant for coronary artery disease with previous stenting, cardiomyopathy, hypertension, hyperlipidemia, diabetes, severe pulmonary hypertension, COPD, and chronic kidney disease previously on hemodialysis. We have been asked to see the patient in consultation for bradycardic episodes and extensive cardiac history. Patient was recently discharged from the hospital on 09/26 and went to the group home. She had previous hospitalization for cardiopulmonary arrest, anoxic encephalopathy. She has history of a stent to the RCA on 05/2023. Patient was brought back into the hospital due to abnormal lab work found to osborne ve acute kidney injury with creatinine of 3.72. Along with hyperkalemia, sepsis with possible UTI, fracture of the malleolus, rectal prolapse and scheduled for repair of the rectal prolapse today. Patient denies having any chest pain chest pressure, no palpitations, no dizziness. She previously was having some nausea and vomiting but none at this time. She denies any blood in her urine or stoo ls. No cough or fever. Patient has been on on IV sodium bicarb currently on oral as well as received daily dosed IV Lasix. Patient required norepinephrine at the time of admission back on 10/08. Patient's beta-satnam and blood pressure medications have not been resumed. Plavix is also on hold. Patient had episodes of heart rate at 40 on both 10/12 and 10/13. EKG reveals sinus mechanism Chest xray performed on 10/11 revealed no overt failure. Atelectasis favored over pneumonia. Left lower lobe retrocardiac consolidation represents atelectasis or infiltrate. Laboratory data: WBC 4.7, hemoglobin 8, platelet count 97. BUN 119, creatinine 3.58. Calcium 5.6. Phosphorus 9.3. Magnesium 2.1. Albumin 2.5. Procalcitonin 0.32. TSH 8.16. Urinalysis with leukoesterase large, RBCs greater than 182, WBC greater than 182. Squamous cells 19. Current home cardiac medications include amlodipine 5 mg daily, aspirin 81 mg daily, Bumex 1 mg daily, Plavix 75 mg daily, Farxiga 5 mg daily, hydralazine 25 mg 3 times daily, Imdur 30 mg daily, Toprol-XL 12.5 mg daily, Aldactone 12.5 mg daily. Most recent echocardiogram obtained in 08/20/2023 reveals LVH with preserved systolic function. Increased right ventricular systolic pressures. Cardiac catheterization history: 06/24/2023 with stenting of the proximal RCA 10/14 Patient is seen today in follow-up. Heart rate is running in the 70s. Patient noted to have a bloody nose which apparently her nurse and nurse aide are well aware of. Blood pressure 147/82, pulse ox 92% on room air. Repeat blood work for today is not reported at the time of this dictation. Rectal prolapse surgery that was scheduled for yesterday has been canceled. PHYSICAL EXAM: VITAL SIGNS: Reviewed. GENERAL: Well-developed in no acute distress. HEENT: Head is normocephalic. Pupils are equal, round. Sclerae anicteric. Mucous membranes of the mouth are moist. Neck supple. No JVD or thyromegaly LUNGS: Respirations even and unlabored. Lungs diminished with bibasilar crackles HEART: Regular rate and rhythm. S1 and S2 heard. 3/6 systolic murmur at the base and 2/6 systolic murmur at the apex ABDOMEN: Soft. Nondistended. Nontender. EXTREMITIES: Normal range of motion. No clubbing or cyanosis. Peripheral pulses intact. Bilateral lower extremity edema noted. Right worse than left NEUROLOGIC: Awake and alert. ASSESSMENT: Bradycardia, asymptomatic, no sign of high degree AV block Acute kidney injury Hyperkalemia Metabolic acidosis Sepsis secondary to UTI Rectal prolapse surgery scheduled on 10/13 was canceled Hypotension requiring vasopressor Chronic heart failure with reduced EF Coronary artery disease with recent stenting of the proximal RCA, 06/24/2023 Ischemic cardiomyopathy Chronic kidney disease History of renal failure requiring hemodialysis Hypertension Hyperlipidemia Diabetes Severe pulmonary hypertension COPD Former nicotine dependence Malleolus fracture Bicytopenia PLAN: No need to repeat echocardiogram Patient is currently on IV Lasix 40 mg daily per nephrology Daily weights, accurate intake and output, and monitoring of kidney function Plan to resume Plavix following surgery once cleared by general surgery--surgery will evaluate and get back to us. Patient is at high risk for surgical intervention due to multiple comorbidities. Further recommendations pending patient course Nurse practitioner note has been reviewed by physician. Signing provider agrees with the documented findings, assessment, and plan of care documented by BED MAKER as a scribe. Objective - Vital Signs Vital signs: Vital Signs Temp 97.3 F L 10/15/23 04:00 Pulse 76 10/15/23 04:00 Resp 20 10/15/23 04:00 BP 147/82 10/15/23 04:00 Pulse Ox 92 L 10/15/23 04:00 FiO2 Intake & Output 10/14/23 10/15/23 10/15/23 18:59 06:59 18:59 Intake Total 120 600 Output Total 1200 420 Balance -1080 -420 600 Weight 80.5 kg 78 kg Intake: Oral 120 600 Output: Urine 1200 420 Other: Voiding Method Indwelling Catheter Indwelling Catheter # Voids 0 # Bowel Movements 0 4 - Labs CBC & Chem 7: 10/14/23 08:10 10/14/23 08:10 Labs: Abnormal Lab Results - Last 24 Hours (Table) 10/14/23 10/14/23 10/14/23 Range/Units 08:10 08:10 19:59 WBC 3.1 L (3.8-10.6) k/uL RBC 2.88 L (3.80-5.40) m/uL Hgb 8.1 L (11.4-16.0) gm/dL Hct 28.6 L (34.0-46.0) % MCHC 28.3 L (31.0-37.0) g/dL RDW 18.3 H (11.5-15.5) % Plt Count 62 L (150-450) k/uL Lymphocytes # 0.5 L (1.0-4.8) k/uL Potassium 3.2 L (3.5-5.1) mmol/L Chloride 108 H (98-107) mmol/L BUN 95 H (7-17) mg/dL Creatinine 3.09 H (0.52-1.04) mg/dL Glucose 68 L (74-99) mg/dL POC Glucose (mg/dL) 121 H (70-110) mg/dL Calcium 5.9 L* (8.4-10.2) mg/dL Phosphorus 7.7 H (2.5-4.5) mg/dL 10/15/23 Range/Units 05:51 WBC (3.8-10.6) k/uL RBC (3.80-5.40) m/uL Hgb (11.4-16.0) gm/dL Hct (34.0-46.0) % MCHC (31.0-37.0) g/dL RDW (11.5-15.5) % Plt Count (150-450) k/uL Lymphocytes # (1.0-4.8) k/uL Potassium (3.5-5.1) mmol/L Chloride (98-107) mmol/L BUN (7-17) mg/dL Creatinine (0.52-1.04) mg/dL Glucose (74-99) mg/dL POC Glucose (mg/dL) 115 H (70-110) mg/dL Calcium (8.4-10.2) mg/dL Phosphorus (2.5-4.5) mg/dL Microbiology - Last 24 Hours (Table) 10/09/23 15:48 Blood Culture - Final Blood 10/09/23 16:02 Blood Culture - Final Blood
[2023-10-15 10:47] LABS: Anisocytosis Slight; Basophils % (A) 1 %; Eosinophils # (A) 0.2 k/uL (0-0.7); Eosinophils % (A) 5 %; HCT 27.7 % (34.0-46.0); Hypochromasia Marked; Lymphocytes # (A) 0.6 k/uL (1.0-4.8); Lymphocytes % (A) 11 %; MCH 28.4 pg (25.0-35.0); Macrocytosis Slight; Mean Platelet Volume 9.7; Monocytes # (A) 0.2 k/uL (0-1.0); Monocytes % (A) 5 %; Neutrophils # (A) 3.9 k/uL (1.3-7.7); Neutrophils % (A) 77 %; Poikilocytosis Slight; RBC 2.83 m/uL (3.80-5.40); RDW 18.2 % (11.5-15.5)
[2023-10-15 10:52] LABS: Platelet Count 78 k/uL (150-450)
[2023-10-15 11:04] LABS: ALT 16 U/L (4-34); AST 22 U/L (14-36); African American GFR (CKD) 22 (>60 ml/min/1.73 sqM); Albumin 2.7 g/dL (3.5-5.0); Alkaline Phosphatase 157 U/L (38-126); Anion Gap 7 mmol/L; Blood Urea Nitrogen 88 mg/dL (7-17); Calcium 6.6 mg/dL (8.4-10.2); Carbon Dioxide 26 mmol/L (22-30); Chloride 109 mmol/L (98-107); Glucose 113 mg/dL (74-99); Non-African American GFR(CKD) 19 (>60 ml/min/1.73 sqM); Potassium 4.1 mmol/L (3.5-5.1); Sodium 142 mmol/L (137-145); Total Bilirubin 0.5 mg/dL (0.2-1.3); Total Protein 6.3 g/dL (6.3-8.2)
--- NOTE | 2023-10-15 11:13 | P.PN ---
Subjective Patient is seen in follow-up for acute kidney injury on chronic kidney disease. Denies chest pain or shortness of breath. Has [place] catheter. Nonoliguric. On IV Lasix. Renal function improving. Vital signs are stable. General: No acute distress. HEENT: Head exam is unremarkable. On nasal cannula. LUNGS: No audible rhonchi or wheezes. HEART: Rate and Rhythm are regular. ABDOMEN: Nontender. EXTREMITITES: 2+ edema. Objective - Vital Signs Vital signs: Vital Signs Temp 97.3 F L 10/15/23 04:00 Pulse 76 10/15/23 04:00 Resp 20 10/15/23 04:00 BP 147/82 10/15/23 04:00 Pulse Ox 92 L 10/15/23 04:00 FiO2 Intake & Output 10/14/23 10/15/23 10/15/23 18:59 06:59 18:59 Intake Total 120 600 Output Total 1200 420 Balance -1080 -420 600 Weight 80.5 kg 78 kg Intake: Oral 120 600 Output: Urine 1200 420 Other: Voiding Method Indwelling Catheter Indwelling Catheter # Voids 0 # Bowel Movements 0 4 - Labs CBC & Chem 7: 10/15/23 09:59 10/15/23 09:59 Labs: Abnormal Lab Results - Last 24 Hours (Table) 10/14/23 10/15/23 10/15/23 Range/Units 19:59 05:51 09:59 RBC 2.83 L (3.80-5.40) m/uL Hgb 8.0 L (11.4-16.0) gm/dL Hct 27.7 L (34.0-46.0) % MCHC 29.0 L (31.0-37.0) g/dL RDW 18.2 H (11.5-15.5) % Plt Count 78 L (150-450) k/uL Lymphocytes # 0.6 L (1.0-4.8) k/uL Chloride (98-107) mmol/L BUN (7-17) mg/dL Creatinine (0.52-1.04) mg/dL Glucose (74-99) mg/dL POC Glucose (mg/dL) 121 H 115 H (70-110) mg/dL Calcium (8.4-10.2) mg/dL Alkaline Phosphatase (38-126) U/L Albumin (3.5-5.0) g/dL 10/15/23 Range/Units 09:59 RBC (3.80-5.40) m/uL Hgb (11.4-16.0) gm/dL Hct (34.0-46.0) % MCHC (31.0-37.0) g/dL RDW (11.5-15.5) % Plt Count (150-450) k/uL Lymphocytes # (1.0-4.8) k/uL Chloride 109 H (98-107) mmol/L BUN 88 H (7-17) mg/dL Creatinine 2.64 H (0.52-1.04) mg/dL Glucose 113 H (74-99) mg/dL POC Glucose (mg/dL) (70-110) mg/dL Calcium 6.6 L (8.4-10.2) mg/dL Alkaline Phosphatase 157 H (38-126) U/L Albumin 2.7 L (3.5-5.0) g/dL Microbiology - Last 24 Hours (Table) 10/09/23 15:48 Blood Culture - Final Blood 10/09/23 16:02 Blood Culture - Final Blood Assessment and Plan Plan: Assessment: 1. Acute kidney injury secondary to ATN secondary to severe sepsis. 2. Severe sepsis due to UTI on antibiotics. 3. Metabolic acidosis secondary to acute kidney injury improved with bicarb drip. On oral bicarb. Better. 4. Hyperkalemia secondary to acute kidney injury and metabolic acidosis. Resolved. 5. History of cardiac arrest. 6. Chronic kidney disease stage IIIb with baseline creatinine 1.5-1.8. Patient required renal replacement therapy in the past. 7. Rectal prolapse. Surgery following. 8. Chronic kidney disease mineral bone disease with hypocalcemia and hyperphosphatemia. On PhosLo. Better. 9. Diabetes mellitus. 10. Anemia of chronic kidney disease maintained on Aranesp. Plan: Maintain IV Lasix. Avoid nephrotoxins. Continue to monitor renal function and urine output. Follow-up echocardiogram.
[2023-10-15 11:54] LABS: Glucose,Whole Blood 131 mg/dL (70-110)
--- NOTE | 2023-10-15 12:27 | P.PN ---
Subjective Progress Note Date: 10/15/23 CHIEF COMPLAINT: Worsening renal function UTI HISTORY OF PRESENT ILLNESS: Patient currently on the cardiac floor. Denies any rectal pain. Surgical service following regards to patient's rectal prolapse. Afebrile. WBC 5.0 Hgb 8.0 platelets 78 creatinine 2.64 PHYSICAL EXAM: VITAL SIGNS: Reviewed. GENERAL: no acute distress. ABDOMEN: Soft. Nondistended. Nontender. NEUROLOGIC: awake and responding to questions ASSESSMENT: 1. Rectal prolapse 2. Acute on chronic renal failure 3. UTI with hypotension 4. History of coronary disease with cardiac stent placed in May 2023 5. Hyperphosphatemia PLAN: -Plan for repair of rectal prolapse possibly next week if patient is medically stable -Continue to correct electrolytes -ok to resume Plavix for now Physician Cloud Security Architect note has been reviewed by physician. Signing provider agrees with the documented findings, assessment, and plan of care. Objective - Vital Signs Vital signs: Vital Signs Temp 97.4 F L 10/15/23 08:00 Pulse 78 10/15/23 08:00 Resp 18 10/15/23 08:00 BP 156/85 10/15/23 08:00 Pulse Ox 94 L 10/15/23 08:15 FiO2 Intake & Output 10/14/23 10/15/23 10/15/23 18:59 06:59 18:59 Intake Total 120 600 Output Total 1200 420 Balance -1080 -420 600 Weight 80.5 kg 78 kg Intake: Oral 120 600 Output: Urine 1200 420 Other: Voiding Method Indwelling Catheter Indwelling Catheter Indwelling Catheter # Voids 0 # Bowel Movements 0 4 - Labs CBC & Chem 7: 10/15/23 09:59 10/15/23 09:59 Labs: Abnormal Lab Results - Last 24 Hours (Table) 10/14/23 10/15/23 10/15/23 Range/Units 19:59 05:51 09:59 RBC 2.83 L (3.80-5.40) m/uL Hgb 8.0 L (11.4-16.0) gm/dL Hct 27.7 L (34.0-46.0) % MCHC 29.0 L (31.0-37.0) g/dL RDW 18.2 H (11.5-15.5) % Plt Count 78 L (150-450) k/uL Lymphocytes # 0.6 L (1.0-4.8) k/uL Chloride (98-107) mmol/L BUN (7-17) mg/dL Creatinine (0.52-1.04) mg/dL Glucose (74-99) mg/dL POC Glucose (mg/dL) 121 H 115 H (70-110) mg/dL Calcium (8.4-10.2) mg/dL Alkaline Phosphatase (38-126) U/L Albumin (3.5-5.0) g/dL 10/15/23 Range/Units 09:59 RBC (3.80-5.40) m/uL Hgb (11.4-16.0) gm/dL Hct (34.0-46.0) % MCHC (31.0-37.0) g/dL RDW (11.5-15.5) % Plt Count (150-450) k/uL Lymphocytes # (1.0-4.8) k/uL Chloride 109 H (98-107) mmol/L BUN 88 H (7-17) mg/dL Creatinine 2.64 H (0.52-1.04) mg/dL Glucose 113 H (74-99) mg/dL POC Glucose (mg/dL) (70-110) mg/dL Calcium 6.6 L (8.4-10.2) mg/dL Alkaline Phosphatase 157 H (38-126) U/L Albumin 2.7 L (3.5-5.0) g/dL Microbiology - Last 24 Hours (Table) 10/09/23 15:48 Blood Culture - Final Blood 10/09/23 16:02 Blood Culture - Final Blood
--- NOTE | 2023-10-15 13:43 | P.PN ---
Subjective Progress Note Date: 10/15/23 Patient is a 58-year-old female with a past medical history of hypertension, hyperlipidemia, diabetes type 2, CKD stage III with baseline creatinine around 1.8, ischemic cardiomyopathy with improved EF, GBS, history of hemodialysis and prior history of smoking was sent from [facility] due to worsening renal function with elevated creatinine level.. Patient was recently discharged from the hospital on 09/27/2023. Admitted on 08/19/2023. Patient was status post cardiac arrest and respiratory failure requi ring intubation. Patient was treated for acute CHF and hypoxic respiratory failure, ischemic cardiomyopathy ejection fraction improved. Patient was discharged to [facility]. Patient also has right heel stage III pressure ulcer and subacute fracture of the medial and lateral malleolus, no plans for immediate surgical intervention as per orthopedic surgery. She was also treated for E. coli urinary tract infection. Patient was having episodes of vomiting couple days ago and also had diarrhea yesterday. Continue to have nausea and decreased oral intake. Otherwise denies any complaints of abdominal pain. No complaints of diarrhea at today. Patient was recently discharged home with antibiotics, doxycycline on 09/27/2023. Denied any fever or chills. No chest pain or shortness of breath. No cough or sputum production. Chest x-ray showed correlate for mild CHF. Left lower lobe consolidation could be on the basis of pneumonia or chronic atelectasis. Stable from prior exam. EKG showed sinus bradycardia with heart rate 55. Laboratory data showed hemoglobin 8.0, WBC 4.3 and platelets 125 Sodium 134 potassium 6.0 chloride 109 bicarb is 15 BUN 130 and creatinine 3.72 and blood sugar 100 lactic acid 0.6 and calcium 6.3. Magnesium 2.4 alk phos 201 TSH 8.1 and free T40.94 0.97 Urinalysis showed turbid with large blood large leukocyte esterase and elevated RBCs and WBCs. Influenza A B and RSV COVID-19 PCR not detected. Patient was hypotensive with blood pressure 85/59 with pulse of 59 respirations 17 and pulse ox 100% on 2 L oxygen on admission. 10/10/2023 Patient is in the MICU. Awake alert and oriented. No complaints of chest pain or abdominal pain. No nausea or vomiting. Patient's blood pressure is low and remains on pressor support. Also on bicarb drip. Patient is able to make urine. Chest x-ray showed NG tube in good position. Renal ultrasound showed suboptimal study but no gross hydronephrosis identified bilaterally Laboratory data showed WBC 6.8 hemoglobin 7.8 and platelets 128, sodium 138 potassium 5.7 chloride 112 bicarb is 14 BUN 123 and creatinine 3.9 and blood sugar 137 A1c 6.4 calcium 6.1 and procalcitonin level is 0.32 patient remains on antibiotics of ceftriaxone. 10/11/2023 Patient is in the MICU. Awake alert and oriented. Currently on 2 L oxygen via nasal cannula. Otherwise patient is being continued on bicarb drip. Was also given dose of IV Lasix per nephrology for possible pulm overload. Patient does have urine output which is improving. Otherwise patient is being continued on ceftriaxone. Urine culture and blood cultures are pending. Laboratory data showed WBC 4.7 hemoglobin 8.0 and platelets 97 sodium 136 potassium 5.1 chloride 108 bicarb is 17 BUN 119 and creatinine 3.89 and blood sugar 150 and calcium 5.9 and vitamin D level is low at 19.4. Nephrology and pulmonary is on board. 10/12/2023 Patient is in the medical floor. Awake alert and oriented. No complaints of chest pain or shortness of breath. Patient does have good urine output. No nausea vomiting. Tolerating oral diet. Laboratory data showed sodium 138 potassium 4.85 chloride 106 bicarb is 23 BUN 119 and creatinine 3.58 and blood sugar 135 calcium 5.6 and phosphorus 9.3 and albumin 2.5. Patient is being continued on ceftriaxone. Urine culture showed E. coli and Proteus. Patient is also on vitamin D supplementation. 10/13/2023 Patient is resting in the bed. Awake alert and oriented. No complaints of chest pain or shortness of breath. No nausea or vomiting. Patient does have good urine output. Previous laboratory data reviewed. Patient is tolerating oral diet. Scheduled for rectal prolapse. Tomorrow. Continue with vitamin D supplementation and calcium. Albumin 2.5. Nephrology, pulmonary and general surgery is on board. Follow-up CBC and BMP tomorrow. Current medications reviewed. 10/14/2023 Patient is evaluated today on the medical floor sitting up in bed she is awake alert and oriented has family at the bedside. General surgery is following for the rectal prolapse recommending to hold off on surgery at this time due to current clinical condition. Patient is tolerating oral intake at this time. Continues on IV Ceftin at this time for urine culture showing E. coli and Proteus we would ask ID to evaluate for antibiotic coverage for these. Blood work today reveals a white count of 3.1, hemoglobin 8.1, platelet count of 69, sodium 144, potassium 3.2, BUN 95, creatinine 3.09. Calcium 5.9, phosphorus 7.7. Hemodynamically she is stable. Temp today 97.5, 96.7. 10/15/2023 Patient is evaluated in follow-up of medical floor. Alert and oriented x 3 she is tolerating some diet continues to report nausea. Patient is being followed by general surgery with plans for rectal prolapse repair sometime next week. She has been off the Coco hugger now for 24 hours and holding temps 97.4 oral. She is requiring 2 L of oxygen. Cardiology was consulted secondary to episodes of bradycardia. Patient will have a repeat echocardiogram completed. ID has revealed the patient recommending to continue IV ceftriaxone. Her labs are improving white blood cell count 5.0, hemoglobin 8.0, platelet count of 78, BUN of 88, creatinine of 2.64, sodium 142. Calcium level 6.6 has improved. Review of Systems Constitutional: Denied any fatigue denied any fever. Cardio vascular: denied any chest pain, palpitations Gastrointestinal: denied any nausea, vomiting, diarrhea Pulmonary: Denied any shortness of breath cough Neurologic denied any new focal deficits All inpatient medications were reviewed and appropriate changes in these me dications as dictated in the interval history and assessment and plan PHYSICAL EXAMINATION: GENERAL: The patient is alert and oriented x3, not in any acute distress. Well developed, well nourished. HEENT: Pupils are round and equally reacting to light. EOMI. No scleral icterus. No conjunctival pallor. Normocephalic, atraumatic. No pharyngeal erythema. No thyromegaly. CARDIOVASCULAR: S1 and S2 present. No murmurs, rubs, or gallops. PULMONARY: Chest is clear to auscultation, no wheezing or crackles. ABDOMEN: Soft, nontender, nondistended, normoactive bowel sounds. No palpable organomegaly. MUSCULOSKELETAL: No joint swelling or deformity. EXTREMITIES: No cyanosis, clubbing, or pedal edema. NEUROLOGICAL: Gross neurological examination did not reveal any focal deficits. SKIN: No rashes. Assessment and Plan Acute kidney injury likely due to ATN due to hypotension and possible infection. Creatinine 3.72 on admission baseline creatinine around 1.8 Hyperkalemia due to MARYLOU. Improving Non-anion gap metabolic acidosis secondary to above Rectal prolapse CKD stage III stage IIIb due to nephrosclerosis/nephropathy and cardiorenal. Hypotension. Stable. E. coli and Proteus Mirabella's urinary tract infection Possible pneumonia with left lower lobe consolidation on chest x-ray. Vitamin D deficiency Hypertension. Patient is currently hypotensive. Recent admission due Asystole/cardiopulmonary rest and hypoxic respiratory failure. Discharged to [facility] on 09/27/2023. Anemia of chronic disease and iron deficiency anemia, thrombocytopenia Coronary artery disease with history of stent placement to [facility] and May 2023. Chronic CHF with systolic dysfunction Ischemic cardiomyopathy with improved EF Subacute fracture of the medial and lateral malleolus from previous admission. Right heel stage III pressure injury continue local wound care with aquacel ID following. Hyperlipidemia Type 2 diabetes mellitus uncontrolled hgb a1c 12.1 Severe pulmonary hypertension COPD without any acute exacerbation Peripheral neuropathy GI prophylaxis with PPI DVT prophylaxis heparin SQ every 12 Full Code Plan Patient has been started on aranesp. Patient is off the Coco hugger at this time and continue to monitor temps closely. Rectal prolapse surgery on hold for now Replace electrolytes per protocol continues on oral calcium supplementation,. ID consultation for UTI recommending to continue on IV ceftriaxone Wound care consultation for the right heel. Continue accuchecks ACHS sliding scale insulin. IV lasix daily per nephrology PT/OT consultation Replace electrolytes and monitor renal function. Blood work in the AM. The impression and plan of care has been dictated by Susana Roman, Nurse Practitioner as directed. Dr. Ricardo MD I have performed a history and physical examination and medical decision making of this patient, discussed the same with the dictator, and agree with the dictators assessment and plan as written, documented as a scribe. Based on total visit time, I have performed more than 50% of this visit. Objective - Vital Signs Vital signs: Vital Signs Temp 97.4 F L 10/15/23 08:00 Pulse 78 10/15/23 08:00 Resp 18 10/15/23 08:00 BP 156/85 10/15/23 08:00 Pulse Ox 94 L 10/15/23 08:15 FiO2 Intake & Output 10/14/23 10/15/23 10/15/23 18:59 06:59 18:59 Intake Total 120 720 Output Total 1200 420 Balance -1080 -420 720 Weight 80.5 kg 78 kg Intake: Oral 120 720 Output: Urine 1200 420 Other: Voiding Method Indwelling Catheter Indwelling Catheter Indwelling Catheter # Voids 0 # Bowel Movements 0 4 - Labs CBC & Chem 7: 10/15/23 09:59 10/15/23 09:59 Labs: Abnormal Lab Results - Last 24 Hours (Table) 10/14/23 10/15/23 10/15/23 Range/Units 19:59 05:51 09:59 RBC 2.83 L (3.80-5.40) m/uL Hgb 8.0 L (11.4-16.0) gm/dL Hct 27.7 L (34.0-46.0) % MCHC 29.0 L (31.0-37.0) g/dL RDW 18.2 H (11.5-15.5) % Plt Count 78 L (150-450) k/uL Lymphocytes # 0.6 L (1.0-4.8) k/uL Chloride (98-107) mmol/L BUN (7-17) mg/dL Creatinine (0.52-1.04) mg/dL Glucose (74-99) mg/dL POC Glucose (mg/dL) 121 H 115 H (70-110) mg/dL Calcium (8.4-10.2) mg/dL Alkaline Phosphatase (38-126) U/L Albumin (3.5-5.0) g/dL 10/15/23 10/15/23 Range/Units 09:59 11:53 RBC (3.80-5.40) m/uL Hgb (11.4-16.0) gm/dL Hct (34.0-46.0) % MCHC (31.0-37.0) g/dL RDW (11.5-15.5) % Plt Count (150-450) k/uL Lymphocytes # (1.0-4.8) k/uL Chloride 109 H (98-107) mmol/L BUN 88 H (7-17) mg/dL Creatinine 2.64 H (0.52-1.04) mg/dL Glucose 113 H (74-99) mg/dL POC Glucose (mg/dL) 131 H (70-110) mg/dL Calcium 6.6 L (8.4-10.2) mg/dL Alkaline Phosphatase 157 H (38-126) U/L Albumin 2.7 L (3.5-5.0) g/dL Microbiology - Last 24 Hours (Table) 10/09/23 15:48 Blood Culture - Final Blood 10/09/23 16:02 Blood Culture - Final Blood Assessment and Plan Time with Patient: Less than 30
[2023-10-15 16:31] LABS: Glucose,Whole Blood 145 mg/dL (70-110)
[2023-10-15] MEDS: CLOPIDOGREL 75 MG TAB PO SCH (17:05)
[2023-10-15 20:00] LABS: Glucose,Whole Blood 175 mg/dL (70-110)
[2023-10-16 06:11] LABS: Glucose,Whole Blood 143 mg/dL (70-110)
--- NOTE | 2023-10-16 07:45 | CA ---
Transthoracic Echo Report Name: Chelle Lin Age: 58 Gender: F : 1965 Exam Date: 10/15/2023 11:34 Exam Location: [facility] Ht (in): 63 Wt (lb): 177 Ordering Physician: Lenore Busch Attending/Referring Phys: [id number], Narayan Cad Drafter Asuncion Rocha RDCS Procedure CPT: Indications: LVF Cardiac Hx: Technical Quality: Good Contrast 1: Total Dose (mL): Contrast 2: Total Dose (mL): MEASUREMENTS (Male / Female) Normal Values 2D ECHO LV Diastolic Diameter PLAX 4.0 cm 4.2 - 5.9 / 3.9 - 5.3 cm LV Systolic Diameter PLAX 3.3 cm IVS Diastolic Thickness 1.0 cm 0.6 - 1.0 / 0.6 - 0.9 cm LVPW Diastolic Thickness 1.1 cm 0.6 - 1.0 / 0.6 - 0.9 cm LV Relative Wall Thickness 0.5 LV Diastolic Volume MOD BP 118.7 cm??? 67 - 155 / 56 - 104 cm??? LV Systolic Volume MOD BP 60.2 cm??? 22 - 58 / 19 - 49 cm??? LV Ejection Fraction MOD BP 49.3 % >= 55 % LV Cardiac Index MOD BP 2255.3 cm???/min???m??? LV Diastolic Volume MOD 4C 107.2 cm??? LV Systolic Volume MOD 4C 56.2 cm??? LV Ejection Fraction MOD 4C 47.6 % LV Cardiac Index MOD 4C 1967.2 cm???/min???m??? LV Diastolic Length 4C 8.3 cm LV Systolic Length 4C 7.1 cm LV Diastolic Volume MOD 2C 130.1 cm??? LV Systolic Volume MOD 2C 64.3 cm??? LV Ejection Fraction MOD 2C 50.6 % LV Cardiac Index MOD 2C 2536.8 cm???/min???m??? LV Diastolic Length 2C 8.4 cm LV Systolic Length 2C 7.2 cm M-MODE LV Diastolic Diameter MM 4.7 cm 4.2 - 5.9 / 3.9 - 5.3 cm LV Systolic Diameter MM 3.6 cm LV Cardiac Index MM Teich 1909.1 cm???/min???m??? IVS Diastolic Thickness MM 1.3 cm 0.6 - 1.0 / 0.6 - 0.9 cm LVPW Diastolic Thickness MM 1.3 cm 0.6 - 1.0 / 0.6 - 0.9 cm LV Relative Wall Thickness MM 0.5 0.24 - 0.42 / 0.22 - 0.42 LV Mass Index MM 127.1 g/m??? 49 - 115 / 43 - 95 g/m??? DOPPLER AV Peak Velocity 175.9 cm/s AV Peak Gradient 12.4 mmHg AV Mean Velocity 112.5 cm/s AV Mean Gradient 5.9 mmHg AV Velocity Time Integral 38.9 cm LVOT Peak Velocity 114.3 cm/s LVOT Peak Gradient 5.2 mmHg LVOT Velocity Time Integral 25.2 cm TR Peak Velocity 352.7 cm/s TR Peak Gradient 52.6 mmHg Right Atrial Pressure 15.0 mmHg Pulmonary Artery Systolic Pressu 64.8 mmHg Right Ventricular Systolic Press 64.8 mmHg FINDINGS Left Ventricle Left ventricular ejection fraction is estimated at 40-45 to %. Severely increased left ventricular mass. Mildly increased septal wall thickness. Mildly increased posterior wall thickness. Mildly decreased fractional shortening. Severely decreased midwall fractional shortening. Moderately increased left ventricular diastolic volume. Moderately increased left ventricular systolic volume. Severely increased left ventricular relative wall thickness. Mildly decreased left ventricular ejection fraction. Right Ventricle Mild right ventricular dilatation with normal function. Severely elevated right ventricular systolic pressure. Prominent moderator band in right ventricle (normal variant). Right Atrium Right atrial dilatation. Left Atrium Left atrial dilatation. Mitral Valve Mitral valve thickened. No evidence for mitral valve prolapse. No mitral stenosis. Mild to moderate mitral regurgitation. Aortic Valve Trileaflet aortic valve. Diffuse thickening (sclerosis) of the aortic valve cusps without reduced excursion. No aortic stenosis. Trace aortic regurgitation. Tricuspid Valve Structurally normal tricuspid valve. No tricuspid stenosis. Moderate tricuspid regurgitation. Pulmonic Valve Pulmonic valve not well visualized. Pericardium No pericardial effusion. Aorta Aortic root and proximal ascending aorta not assessed. CONCLUSIONS Mildly impaired LV function with EF between 40 to 45% with global hypokinesia Intact mitral valve leaflets with mild to moderate mitral regurgitation Moderate tricuspid regurgitation Previewed by: Dr. Francisco Javier Valencia MD (Electronically Signed) Final Date: 16 October 2023 07:44
--- NOTE | 2023-10-16 10:32 | P.PN ---
Subjective Progress Note Date: 10/16/23 Bradycardia episodes, extensive cardiac history History of present illness: This is a 58-year-old female patient of Dr. Jose with a past medical history significant for coronary artery disease with previous stenting, cardiomyopathy, hypertension, hyperlipidemia, diabetes, severe pulmonary hypertension, COPD, and chronic kidney disease previously on hemodialysis. We have been asked to see the patient in consultation for bradycardic episodes and extensive cardiac history. Patient was recently discharged from the hospital on 09/26 and went to the residential. She had previous hospitalization for cardiopulmonary arrest, anoxic encephalopathy. She has history of a stent to the RCA on 05/2023. Patient was brought back into the hospital due to abnormal lab work found to osborne ve acute kidney injury with creatinine of 3.72. Along with hyperkalemia, sepsis with possible UTI, fracture of the malleolus, rectal prolapse and scheduled for repair of the rectal prolapse today. Patient denies having any chest pain chest pressure, no palpitations, no dizziness. She previously was having some nausea and vomiting but none at this time. She denies any blood in her urine or stoo ls. No cough or fever. Patient has been on on IV sodium bicarb currently on oral as well as received daily dosed IV Lasix. Patient required norepinephrine at the time of admission back on 10/08. Patient's beta-satnam and blood pressure medications have not been resumed. Plavix is also on hold. Patient had episodes of heart rate at 40 on both 10/12 and 10/13. EKG reveals sinus mechanism Chest xray performed on 10/11 revealed no overt failure. Atelectasis favored over pneumonia. Left lower lobe retrocardiac consolidation represents atelectasis or infiltrate. Laboratory data: WBC 4.7, hemoglobin 8, platelet count 97. BUN 119, creatinine 3.58. Calcium 5.6. Phosphorus 9.3. Magnesium 2.1. Albumin 2.5. Procalcitonin 0.32. TSH 8.16. Urinalysis with leukoesterase large, RBCs greater than 182, WBC greater than 182. Squamous cells 19. Current home cardiac medications include amlodipine 5 mg daily, aspirin 81 mg daily, Bumex 1 mg daily, Plavix 75 mg daily, Farxiga 5 mg daily, hydralazine 25 mg 3 times daily, Imdur 30 mg daily, Toprol-XL 12.5 mg daily, Aldactone 12.5 mg daily. Most recent echocardiogram obtained in 08/20/2023 reveals LVH with preserved systolic function. Increased right ventricular systolic pressures. Cardiac catheterization history: 06/24/2023 with stenting of the proximal RCA 10/14 Patient is seen today in follow-up. Heart rate is running in the 70s. Patient noted to have a bloody nose which apparently her nurse and nurse aide are well aware of. Blood pressure 147/82, pulse ox 92% on room air. Repeat blood work for today is not reported at the time of this dictation. Rectal prolapse surgery that was scheduled for yesterday has been canceled. 10/15 Patient is seen today in follow-up. She denies having any chest pain or shortness of breath. Patient has a bear blanket on for temperature 94.4. Her blood pressure is currently stable, heart rate is stable. Yesterday we resumed Plavix as this was cleared by general surgery with no plan for immediate surgery. Blood pressure 134/76, heart rate 76, pulse ox 95% on 2 L, 86% on room air. Repeat blood work has not reported at the time of this dictation. Limited echocardiogram reveals EF 40 to 45%, mild to moderate mitral regurgitation, moderate tricuspid regurgitation. PHYSICAL EXAM: VITAL SIGNS: Reviewed. GENERAL: Well-developed in no acute distress. HEENT: Head is normocephalic. Pupils are equal, round. Sclerae anicteric. Mucous membranes of the mouth are moist. Neck supple. No JVD or thyromegaly LUNGS: Respirations even and unlabored. Lungs diminished with bibasilar crackles HEART: Regular rate and rhythm. S1 and S2 heard. 3/6 systolic murmur at the base and 2/6 systolic murmur at the apex ABDOMEN: Soft. Nondistended. Nontender. EXTREMITIES: Normal range of motion. No clubbing or cyanosis. Peripheral pulses intact. Bilateral lower extremity edema noted. Right worse than left NEUROLOGIC: Awake and alert. ASSESSMENT: Bradycardia, asymptomatic, no sign of high degree AV block Acute kidney injury Hyperkalemia Metabolic acidosis Sepsis secondary to UTI Rectal prolapse surgery scheduled on 10/13 was canceled Hypotension requiring vasopressor Chronic heart failure with reduced EF, 40 to 45% Mild to moderate mitral regurgitation and moderate tricuspid regurgitation Coronary artery disease with recent stenting of the proximal RCA, 06/24/2023 Ischemic cardiomyopathy Chronic kidney disease History of renal failure requiring hemodialysis Hypertension Hyperlipidemia Diabetes Severe pulmonary hypertension COPD Former nicotine dependence Malleolus fracture Bicytopenia PLAN: Patient is currently on IV Lasix 40 mg daily per nephrology Daily weights, accurate intake and output, and monitoring of kidney function We have resume Plavix as of 10/14 Start patient on Farxiga 10 mg daily Patient is at high risk for surgical intervention due to multiple comorbidities. Recommend postponing elective surgery until patient's medical conditions can be optimized. Further recommendations pending patient course Nurse practitioner note has been reviewed by physician. Signing provider agrees with the documented findings, assessment, and plan of care documented by [employer] FEEDER as a scribe. Objective - Vital Signs Vital signs: Vital Signs Temp 94.4 F L 10/16/23 07:55 Pulse 76 10/16/23 07:55 Resp 17 10/16/23 07:55 BP 134/76 10/16/23 07:55 Pulse Ox 86 L 10/16/23 07:55 FiO2 Intake & Output 10/15/23 10/16/23 10/16/23 18:59 06:59 18:59 Intake Total 840 240 Output Total 200 Balance 840 -200 240 Weight 74.5 kg Intake: Oral 840 240 Output: Urine 200 Other: Voiding Method Indwelling Catheter Indwelling Catheter Indwelling Catheter # Bowel Movements 1 - Labs CBC & Chem 7: 10/15/23 09:59 10/15/23 09:59 Labs: Abnormal Lab Results - Last 24 Hours (Table) 10/15/23 10/15/23 10/15/23 Range/Units 09:59 09:59 11:53 RBC 2.83 L (3.80-5.40) m/uL Hgb 8.0 L (11.4-16.0) gm/dL Hct 27.7 L (34.0-46.0) % MCHC 29.0 L (31.0-37.0) g/dL RDW 18.2 H (11.5-15.5) % Plt Count 78 L (150-450) k/uL Lymphocytes # 0.6 L (1.0-4.8) k/uL Chloride 109 H (98-107) mmol/L BUN 88 H (7-17) mg/dL Creatinine 2.64 H (0.52-1.04) mg/dL Glucose 113 H (74-99) mg/dL POC Glucose (mg/dL) 131 H (70-110) mg/dL Calcium 6.6 L (8.4-10.2) mg/dL Alkaline Phosphatase 157 H (38-126) U/L Albumin 2.7 L (3.5-5.0) g/dL 10/15/23 10/15/23 10/16/23 Range/Units 16:28 19:59 06:05 RBC (3.80-5.40) m/uL Hgb (11.4-16.0) gm/dL Hct (34.0-46.0) % MCHC (31.0-37.0) g/dL RDW (11.5-15.5) % Plt Count (150-450) k/uL Lymphocytes # (1.0-4.8) k/uL Chloride (98-107) mmol/L BUN (7-17) mg/dL Creatinine (0.52-1.04) mg/dL Glucose (74-99) mg/dL POC Glucose (mg/dL) 145 H 175 H 143 H (70-110) mg/dL Calcium (8.4-10.2) mg/dL Alkaline Phosphatase (38-126) U/L Albumin (3.5-5.0) g/dL
--- NOTE | 2023-10-16 10:54 | P.CONS ---
History of Present Illness - Reason for Consult Consult date: 10/16/23 wound care - History of Present Illness This is a [id number] patient known to the wound care center with a diabetic foot ulcer Perkins grade 3 to the right calcaneus. Patient has a stage II pressure ulcer. History of neuropathy and diabetes. Patient was previously followed in the wound care center however due to a complicated medical history she has not been back to the wound care center. Patient currently has a stage II pressure ulcer to the right calcaneus measuring approximately 0.3 x 1.6 x 0.1 cm slough and nonviable tissue noted to the wound bed granulation seen throughout. Wound edges are attached to the wound base no tunneling or undermining noted. Review Of Systems: Constitutional: No fever, no chills, no night sweats. No weight change. No weakness, fatigue or lethargy. No daytime sleepiness. Integumentary:reports wounds, no lesions. No rash or pruritus. No unusual bruising. No change in hair or nails. Physical exam: General Appearance: Alert, cooperative, no distress, appears stated age. Skin: See HPI all other Skin color, texture, tugor normal, no rashes or lesions. Neurologic: Alert oriented x3 Assessment: 1. Stage II pressure ulcer right calcaneus 2. Diabetic foot ulceration Perkins grade 3 Plan: 1. Apply collagen, saline moist gauze, dry gauze and bordered foam. Change Sat day Saturday. Thank you for the consultation any questions please contact the wound care ce nter DNP note has been reviewed and discussed with Dr. Chavez and the impression and plan of care has been directed as dictated. Past Medical History Past Medical History: Diabetes Mellitus, Hyperlipidemia, Hypertension, Renal Disease Additional Past Medical History / Comment(s): restless leg, neurothopy, Guillain-[place], dialysis History of Any Multi-Drug Resistant Organisms: None Reported Past Surgical History: Orthopedic Surgery, Tonsillectomy Additional Past Surgical History / Comment(s): "plate in left leg to straighten leg as a child" - plate removed, right total hip replacement due to a fracture from a fall, dialysis Past Anesthesia/Blood Transfusion Reactions: No Reported Reaction Past Psychological History: No Psychological Hx Reported Smoking Status: Former smoker Past Alcohol Use History: None Reported Past Drug Use History: None Reported Medications and Allergies Home Medications Medication Instructions Recorded Confirmed Type DontrellRole HCL [Requip] 1 mg PO HS 04/17/23 10/09/23 History Aspirin 81 mg PO DAILY 90 Days #90 tab 06/25/23 10/09/23 Rx Acetaminophen Tab [Tylenol] 650 mg PO Q6HR PRN tab 09/27/23 10/09/23 Rx Bumetanide [BUMEX] 1 mg PO DAILY tab 09/27/23 10/09/23 Rx Clopidogrel [Plavix] 75 mg PO DAILY tab 09/27/23 10/09/23 Rx Docusate [Colace] 100 mg PO BID cap 09/27/23 10/09/23 Rx Fluticasone Nasal Arthur [Flonase 2 spray EA NOSTRIL DAILY ml 09/27/23 10/09/23 Rx Nasal Arthur] Folic Acid 1 mg PO DAILY tab 09/27/23 10/09/23 Rx Isosorbide Mononitrate ER [Imdur] 30 mg PO DAILY tab 09/27/23 10/09/23 Rx Lidocaine 4% Patch 1 patch TOPICAL DAILY patch 09/27/23 10/09/23 Rx Melatonin 5 mg PO HS tab 09/27/23 10/09/23 Rx Metoprolol Succinate (ER) [Toprol 12.5 mg PO DAILY tab 09/27/23 10/09/23 Rx XL] Spironolactone [Aldactone] 12.5 mg PO DAILY tab 09/27/23 10/09/23 Rx Thiamine [Vitamin B-1] 100 mg PO DAILY tab 09/27/23 10/09/23 Rx fluPHENAZine [Prolixin] 5 mg PO Q6HR PRN tab 09/27/23 10/09/23 Rx hydrALAZINE HCL [Apresoline] 25 mg PO TID tab 09/27/23 10/09/23 Rx rOPINIRole HCL [Requip] 1 mg PO HS PRN tab 09/27/23 10/09/23 Rx DULoxetine HCL [Cymbalta] 20 mg PO DAILY 10/09/23 10/09/23 History Dapagliflozin Propanediol [Farxiga] 5 mg PO DAILY 10/09/23 10/09/23 History Darbepoetin Frantz [Aranesp] 40 mcg SQ SA 10/09/23 10/09/23 History Dextrose Chew [Glucose Chew Tab] 4 gm PO DIRECTED PRN 10/09/23 10/09/23 History Healthshake 1 dose PO BID 10/09/23 10/09/23 History Ipratropium-Albuterol Nebulize 3 ml INHALATION RT-Q6H PRN 10/09/23 10/09/23 History [Duoneb 0.5 mg-3 mg/3 ml Soln] Multivitamins, Thera [Multivitamin 1 tab PO DAILY 10/09/23 10/09/23 History (formulary)] Sodium Chloride [Saline Mist] 2 spray EA NOSTRIL TID 10/09/23 10/09/23 History amLODIPine [Norvasc] 5 mg PO DAILY 10/09/23 10/09/23 History risperiDONE [RisperDAL] 2 mg PO BID 10/09/23 10/09/23 History Allergies Allergy/AdvReac Type Severity Reaction Status Date / Time No Known Allergies Allergy Verified 10/09/23 11:40 Physical Exam Vitals: Vital Signs Temp Pulse Pulse Resp BP Pulse Ox 10/16/23 07:55 94.4 F L 76 17 134/76 86 L 10/16/23 04:00 96.9 F L 77 18 142/74 95 10/16/23 02:00 77 74 18 10/16/23 00:00 97.4 F L 74 18 156/89 96 10/15/23 20:00 97.5 F L 77 77 18 156/78 95 10/15/23 16:00 96.7 F L 76 18 158/71 95 10/15/23 14:00 70 76 18 10/15/23 12:00 96.9 F L 76 18 144/78 94 L Intake and Output 10/15/23 10/16/23 10/16/23 22:59 06:59 14:59 Intake Total 120 360 Output Total 200 Balance 120 -200 360 Intake: Oral 120 360 Output: Urine 200 Other: Voiding Method Indwelling Catheter Indwelling Catheter Indwelling Catheter # Bowel Movements 1 Weight 74.5 kg Results CBC & Chem 7: 10/15/23 09:59 10/15/23 09:59 Labs: Abnormal Lab Results - Last 24 Hours (Table) 10/15/23 10/15/23 10/15/23 Range/Units 09:59 09:59 11:53 RBC 2.83 L (3.80-5.40) m/uL Hgb 8.0 L (11.4-16.0) gm/dL Hct 27.7 L (34.0-46.0) % MCHC 29.0 L (31.0-37.0) g/dL RDW 18.2 H (11.5-15.5) % Plt Count 78 L (150-450) k/uL Lymphocytes # 0.6 L (1.0-4.8) k/uL Chloride 109 H (98-107) mmol/L BUN 88 H (7-17) mg/dL Creatinine 2.64 H (0.52-1.04) mg/dL Glucose 113 H (74-99) mg/dL POC Glucose (mg/dL) 131 H (70-110) mg/dL Calcium 6.6 L (8.4-10.2) mg/dL Alkaline Phosphatase 157 H (38-126) U/L Albumin 2.7 L (3.5-5.0) g/dL 10/15/23 10/15/23 10/16/23 Range/Units 16:28 19:59 06:05 RBC (3.80-5.40) m/uL Hgb (11.4-16.0) gm/dL Hct (34.0-46.0) % MCHC (31.0-37.0) g/dL RDW (11.5-15.5) % Plt Count (150-450) k/uL Lymphocytes # (1.0-4.8) k/uL Chloride (98-107) mmol/L BUN (7-17) mg/dL Creatinine (0.52-1.04) mg/dL Glucose (74-99) mg/dL POC Glucose (mg/dL) 145 H 175 H 143 H (70-110) mg/dL Calcium (8.4-10.2) mg/dL Alkaline Phosphatase (38-126) U/L Albumin (3.5-5.0) g/dL Assessment and Plan (1) Pressure ulcer of right heel, stage 2 Current Visit: No Status: Acute Code(s): L89.612 - PRESSURE ULCER OF RIGHT HEEL, STAGE 2 SNOMED Code(s): 94017372890575 (2) Type 2 diabetes mellitus with foot ulcer Current Visit: No Status: Acute Code(s): E11.621 - TYPE 2 DIABETES MELLITUS WITH FOOT ULCER; L97.509 - NON-PRESSURE CHRONIC ULCER OTH PRT UNSP FOOT W UNSP SEVERITY SNOMED Code(s): 310365521
--- NOTE | 2023-10-16 11:27 | P.PN ---
Subjective Patient is seen in follow-up for acute kidney injury on chronic kidney disease. Denies chest pain or shortness of breath. Has Hays catheter. Nonoliguric. On IV Lasix. Renal function improving. No active complaints. Vital signs are stable. General: No acute distress. HEENT: Head exam is unremarkable. On nasal cannula. LUNGS: No audible rhonchi or wheezes. HEART: Rate and Rhythm are regular. ABDOMEN: Nontender. EXTREMITITES: 2+ edema. Objective - Vital Signs Vital signs: Vital Signs Temp 94.4 F L 10/16/23 07:55 Pulse 76 10/16/23 07:55 Resp 17 10/16/23 07:55 BP 134/76 10/16/23 07:55 Pulse Ox 86 L 10/16/23 07:55 FiO2 Intake & Output 10/15/23 10/16/23 10/16/23 18:59 06:59 18:59 Intake Total 840 360 Output Total 200 Balance 840 -200 360 Weight 74.5 kg Intake: Oral 840 360 Output: Urine 200 Other: Voiding Method Indwelling Catheter Indwelling Catheter Indwelling Catheter # Bowel Movements 1 - Labs CBC & Chem 7: 10/15/23 09:59 10/15/23 09:59 Labs: Abnormal Lab Results - Last 24 Hours (Table) 10/15/23 10/15/23 10/15/23 Range/Units 11:53 16:28 19:59 POC Glucose (mg/dL) 131 H 145 H 175 H (70-110) mg/dL 10/16/23 Range/Units 06:05 POC Glucose (mg/dL) 143 H (70-110) mg/dL Assessment and Plan Plan: Assessment: 1. Acute kidney injury secondary to ATN secondary to severe sepsis. Now also component of cardiorenal syndrome. Renal function improving with diuresis. Creatinine 2.64 yesterday. 2. Severe sepsis due to UTI on antibiotics. 3. Metabolic acidosis secondary to acute kidney injury improved with bicarb drip. On oral bicarb. Better. 4. Hyperkalemia secondary to acute kidney injury and metabolic acidosis. Resol arpan. 5. History of cardiac arrest. 6. Chronic kidney disease stage IIIb with baseline creatinine 1.5-1.8. Patient required renal replacement therapy in the past. 7. Rectal prolapse. Surgery following. 8. Chronic kidney disease mineral bone disease with hypocalcemia and hyperphosphatemia. On PhosLo. Better. 9. Diabetes mellitus. 10. Anemia of chronic kidney disease maintained on Aranesp. 11. Cardiomyopathy ejection fraction of 40 to 45% with mild to moderate mitral regurgitation and moderate tricuspid regurgitation. Plan: Maintain IV Lasix. Increase frequency to twice daily. Stop SGLT2 inhibitor due to acute infection/UTI. Avoid nephrotoxins. Continue to monitor renal function and urine output.
[2023-10-16 11:29] LABS: Glucose,Whole Blood 150 mg/dL (70-110)
[2023-10-16 11:33] LABS: Anisocytosis Slight; Basophils % (A) 1 %; Eosinophils # (A) 0.3 k/uL (0-0.7); Eosinophils % (A) 4 %; HGB 8.2 gm/dL (11.4-16.0); Hypochromasia Marked; Lymphocytes # (A) 0.7 k/uL (1.0-4.8); Lymphocytes % (A) 10 %; MCH 29.2 pg (25.0-35.0); MCHC 30.5 g/dL (31.0-37.0); MCV 95.8 fL (80.0-100.0); Macrocytosis Slight; Mean Platelet Volume 10.4; Monocytes # (A) 0.3 k/uL (0-1.0); Monocytes % (A) 5 %; Neutrophils # (A) 5.3 k/uL (1.3-7.7); Neutrophils % (A) 79 %; Poikilocytosis Slight; RBC 2.82 m/uL (3.80-5.40); RDW 18.1 % (11.5-15.5); WBC 6.6 k/uL (3.8-10.6)
[2023-10-16 11:49] LABS: African American GFR (CKD) 25 (>60 ml/min/1.73 sqM); Anion Gap 8 mmol/L; Blood Urea Nitrogen 77 mg/dL (7-17); Calcium 6.9 mg/dL (8.4-10.2); Carbon Dioxide 26 mmol/L (22-30); Chloride 109 mmol/L (98-107); Glucose 144 mg/dL (74-99); Non-African American GFR(CKD) 22 (>60 ml/min/1.73 sqM); Sodium 143 mmol/L (137-145)
[2023-10-16 11:52] LABS: Potassium 4.4 mmol/L (3.5-5.1)
--- NOTE | 2023-10-16 12:14 | P.PN ---
Subjective Progress Note Date: 10/15/23 Principal diagnosis: Reason for follow-up is resistant urinary tract infection Patient is a 55-year-old female with a past medical history significant for diabetes mellitus hypertension hyperlipidemia renal disease requiring dialysis at 1 point also with the right heel diabetic foot ulcer patient has been brought to the hospital concerning for worsening of her kidney function also noticed to be hypothermic positive UA concerning for symptomatic heeltap infection urine culture finalized with resistant E. coli and Proteus. On today's evaluation that is 10/15/2023, Patient is normothermic this morning patient is currently on 2 L nasal cannula oxygen and denies having any shortness of breath, the patient denies any chest pain or cough, the patient denies any nausea vomiting did not have any abdominal pain and no diarrhea. Patient white count is normalized to 5.0, creatinine is 2.64 Objective - Vital Signs Vital signs: Vital Signs Temp 97.4 F L 10/15/23 08:00 Pulse 78 10/15/23 08:00 Resp 18 10/15/23 08:00 BP 156/85 10/15/23 08:00 Pulse Ox 94 L 10/15/23 08:15 FiO2 Intake & Output 10/14/23 10/15/23 10/15/23 18:59 06:59 18:59 Intake Total 120 720 Output Total 1200 420 Balance -1080 -420 720 Weight 80.5 kg 78 kg Intake: Oral 120 720 Output: Urine 1200 420 Other: Voiding Method Indwelling Catheter Indwelling Catheter Indwelling Catheter # Voids 0 # Bowel Movements 0 4 - Exam GENERAL DESCRIPTION: Middle-aged female lying in bed in no distress RESPIRATORY SYSTEM: Unlabored breathing , decreased breath sounds at bases HEART: S1 S2 regular rate and rhythm , ABDOMEN: Soft , no tenderness EXTREMITIES: Right heel wound is currently dressed - Labs CBC & Chem 7: 10/16/23 10:11 10/16/23 10:11 Labs: Abnormal Lab Results - Last 24 Hours (Table) 10/14/23 10/15/23 10/15/23 Range/Units 19:59 05:51 09:59 RBC 2.83 L (3.80-5.40) m/uL Hgb 8.0 L (11.4-16.0) gm/dL Hct 27.7 L (34.0-46.0) % MCHC 29.0 L (31.0-37.0) g/dL RDW 18.2 H (11.5-15.5) % Plt Count 78 L (150-450) k/uL Lymphocytes # 0.6 L (1.0-4.8) k/uL Chloride (98-107) mmol/L BUN (7-17) mg/dL Creatinine (0.52-1.04) mg/dL Glucose (74-99) mg/dL POC Glucose (mg/dL) 121 H 115 H (70-110) mg/dL Calcium (8.4-10.2) mg/dL Alkaline Phosphatase (38-126) U/L Albumin (3.5-5.0) g/dL 10/15/23 10/15/23 Range/Units 09:59 11:53 RBC (3.80-5.40) m/uL Hgb (11.4-16.0) gm/dL Hct (34.0-46.0) % MCHC (31.0-37.0) g/dL RDW (11.5-15.5) % Plt Count (150-450) k/uL Lymphocytes # (1.0-4.8) k/uL Chloride 109 H (98-107) mmol/L BUN 88 H (7-17) mg/dL Creatinine 2.64 H (0.52-1.04) mg/dL Glucose 113 H (74-99) mg/dL POC Glucose (mg/dL) 131 H (70-110) mg/dL Calcium 6.6 L (8.4-10.2) mg/dL Alkaline Phosphatase 157 H (38-126) U/L Albumin 2.7 L (3.5-5.0) g/dL Microbiology - Last 24 Hours (Table) 10/09/23 15:48 Blood Culture - Final Blood 10/09/23 16:02 Blood Culture - Final Blood Assessment and Plan (1) Pressure ulcer of right heel, stage 3 Current Visit: No Status: Acute Code(s): L89.613 - PRESSURE ULCER OF RIGHT HEEL, STAGE 3 SNOMED Code(s): 76451901201716 (2) Type 2 diabetes mellitus with foot ulcer Current Visit: No Status: Acute Code(s): E11.621 - TYPE 2 DIABETES MELLITUS WITH FOOT ULCER; L97.509 - NON-PRESSURE CHRONIC ULCER OTH PRT UNSP FOOT W UNSP SEVERITY SNOMED Code(s): 278727659 (3) UTI (urinary tract infection) Current Visit: No Status: Acute Code(s): N39.0 - URINARY TRACT INFECTION, SITE NOT SPECIFIED SNOMED Code(s): 50740764 Plan: 1patient presented to hospital with worsening of her kidney function and this patient also have significantly positive with some urinary symptoms of retention requiring Hays catheter placement now with urine growing drug-resistant E. coli as well as Proteus as the patient was significantly hypothermic on admission a component of UTI likely 2-patient currently with Rocephin 1 g daily and monitor clinical course closely 3-local wound care to the right heel wound with Aquacel silver dressing change every 48 hours and keep the area of the pressure Dictation was produced using [email or web address] dictation software. please excuse any grammatical, word or spelling errors. Time with Patient: Less than 30
--- NOTE | 2023-10-16 12:15 | P.PN ---
Subjective Progress Note Date: 10/16/23 Principal diagnosis: Reason for follow-up is resistant urinary tract infection Patient is a 55-year-old female with a past medical history significant for diabetes mellitus hypertension hyperlipidemia renal disease requiring dialysis at 1 point also with the right heel diabetic foot ulcer patient has been brought to the hospital concerning for worsening of her kidney function also noticed to be hypothermic positive UA concerning for symptomatic heeltap infection urine culture finalized with resistant E. coli and Proteus. On today's evaluation that is 10/16/2023, patient did have a low temperature last night and placed on a warming blanket, patient is breathing comfortably and is currently on 2 L cannula oxygen, patient denies having any significant cough no chest pain shortness of breath, patient denies nausea vomiting or diarrhea and no abdominal pain. Patient white count 6.6, creatinine is 2.36 blood culture has been negative Objective - Vital Signs Vital signs: Vital Signs Temp 97.8 F 10/16/23 11:28 Pulse 78 10/16/23 11:28 Resp 16 10/16/23 11:28 BP 147/84 10/16/23 11:28 Pulse Ox 95 10/16/23 11:28 FiO2 Intake & Output 10/15/23 10/16/23 10/16/23 18:59 06:59 18:59 Intake Total 840 360 Output Total 200 Balance 840 -200 360 Weight 74.5 kg Intake: Oral 840 360 Output: Urine 200 Other: Voiding Method Indwelling Catheter Indwelling Catheter Indwelling Catheter # Bowel Movements 1 - Exam GENERAL DESCRIPTION: Middle-aged female lying in bed in no distress RESPIRATORY SYSTEM: Unlabored breathing , decreased breath sounds at bases HEART: S1 S2 regular rate and rhythm , ABDOMEN: Soft , no tenderness EXTREMITIES: Right heel wound is currently dressed - Labs CBC & Chem 7: 10/16/23 10:11 10/16/23 10:11 Labs: Abnormal Lab Results - Last 24 Hours (Table) 10/15/23 10/15/23 10/16/23 Range/Units 16:28 19:59 06:05 RBC (3.80-5.40) m/uL Hgb (11.4-16.0) gm/dL Hct (34.0-46.0) % MCHC (31.0-37.0) g/dL RDW (11.5-15.5) % Chloride (98-107) mmol/L BUN (7-17) mg/dL Creatinine (0.52-1.04) mg/dL Glucose (74-99) mg/dL POC Glucose (mg/dL) 145 H 175 H 143 H (70-110) mg/dL Calcium (8.4-10.2) mg/dL 10/16/23 10/16/23 10/16/23 Range/Units 10:11 10:11 11:28 RBC 2.82 L (3.80-5.40) m/uL Hgb 8.2 L (11.4-16.0) gm/dL Hct 27.0 L (34.0-46.0) % MCHC 30.5 L (31.0-37.0) g/dL RDW 18.1 H (11.5-15.5) % Chloride 109 H (98-107) mmol/L BUN 77 H (7-17) mg/dL Creatinine 2.36 H (0.52-1.04) mg/dL Glucose 144 H (74-99) mg/dL POC Glucose (mg/dL) 150 H (70-110) mg/dL Calcium 6.9 L (8.4-10.2) mg/dL Assessment and Plan (1) Pressure ulcer of right heel, stage 3 Current Visit: No Status: Acute Code(s): L89.613 - PRESSURE ULCER OF RIGHT HEEL, STAGE 3 SNOMED Code(s): 71042095693183 (2) Type 2 diabetes mellitus with foot ulcer Current Visit: No Status: Acute Code(s): E11.621 - TYPE 2 DIABETES MELLITUS WITH FOOT ULCER; L97.509 - NON-PRESSURE CHRONIC ULCER OTH PRT UNSP FOOT W UNSP SEVERITY SNOMED Code(s): 313002612 (3) UTI (urinary tract infection) Current Visit: No Status: Acute Code(s): N39.0 - URINARY TRACT INFECTION, SITE NOT SPECIFIED SNOMED Code(s): 37981285 Plan: 1patient presented to hospital with worsening of her kidney function and this patient also have significantly positive with some urinary symptoms of retention requiring Hays catheter placement now with urine growing drug-resistant E. coli as well as Proteus as the patient was significantly hypothermic on admission a component of UTI likely 2--local wound care to the right heel wound with Aquacel silver dressing change every 48 hours and keep the area of the pressure 3-we will adjust Rocephin to 2 g daily, watch her clinical course closely Dictation was produced using [employer] dictation software. please excuse any grammatical, word or spelling errors. Time with Patient: Less than 30
[2023-10-16 12:25] LABS: Platelet Count 76 k/uL (150-450)
--- NOTE | 2023-10-16 13:17 | P.PN ---
Subjective Progress Note Date: 10/16/23 CHIEF COMPLAINT: Worsening renal function UTI HISTORY OF PRESENT ILLNESS: Patient currently on the cardiac floor. Denies any rectal pain. Surgical service following regards to patient's rectal prolapse. Afebrile. Patient restarted on Plavix yesterday. PHYSICAL EXAM: VITAL SIGNS: Reviewed. GENERAL: no acute distress. ABDOMEN: Soft. Nondistended. Nontender. NEUROLOGIC: awake and responding to questions ASSESSMENT: 1. Rectal prolapse 2. Acute on chronic renal failure 3. UTI with hypotension 4. History of coronary disease with cardiac stent placed in May 2023 5. Hyperphosphatemia PLAN: -Plan for repair of rectal prolapse possibly next week if patient is medically stable -Continue to medically optimize patient Physician Hat Measurer note has been reviewed by physician. Signing provider agrees with the documented findings, assessment, and plan of care. Objective - Vital Signs Vital signs: Vital Signs Temp 97.8 F 10/16/23 11:28 Pulse 78 10/16/23 11:28 Resp 16 10/16/23 11:28 BP 147/84 10/16/23 11:28 Pulse Ox 95 10/16/23 11:28 FiO2 Intake & Output 10/15/23 10/16/23 10/16/23 18:59 06:59 18:59 Intake Total 840 360 Output Total 200 Balance 840 -200 360 Weight 74.5 kg Intake: Oral 840 360 Output: Urine 200 Other: Voiding Method Indwelling Catheter Indwelling Catheter Indwelling Catheter # Bowel Movements 1 - Labs CBC & Chem 7: 10/16/23 10:11 10/16/23 10:11 Labs: Abnormal Lab Results - Last 24 Hours (Table) 10/15/23 10/15/23 10/16/23 Range/Units 16:28 19:59 06:05 RBC (3.80-5.40) m/uL Hgb (11.4-16.0) gm/dL Hct (34.0-46.0) % MCHC (31.0-37.0) g/dL RDW (11.5-15.5) % Plt Count (150-450) k/uL Lymphocytes # (1.0-4.8) k/uL Chloride (98-107) mmol/L BUN (7-17) mg/dL Creatinine (0.52-1.04) mg/dL Glucose (74-99) mg/dL POC Glucose (mg/dL) 145 H 175 H 143 H (70-110) mg/dL Calcium (8.4-10.2) mg/dL 10/16/23 10/16/23 10/16/23 Range/Units 10:11 10:11 11:28 RBC 2.82 L (3.80-5.40) m/uL Hgb 8.2 L (11.4-16.0) gm/dL Hct 27.0 L (34.0-46.0) % MCHC 30.5 L (31.0-37.0) g/dL RDW 18.1 H (11.5-15.5) % Plt Count 76 L (150-450) k/uL Lymphocytes # 0.7 L (1.0-4.8) k/uL Chloride 109 H (98-107) mmol/L BUN 77 H (7-17) mg/dL Creatinine 2.36 H (0.52-1.04) mg/dL Glucose 144 H (74-99) mg/dL POC Glucose (mg/dL) 150 H (70-110) mg/dL Calcium 6.9 L (8.4-10.2) mg/dL
--- NOTE | 2023-10-16 14:21 | P.PN ---
Subjective Progress Note Date: 10/16/23 Patient is a 58-year-old female with a past medical history of hypertension, hyperlipidemia, diabetes type 2, CKD stage III with baseline creatinine around 1.8, ischemic cardiomyopathy with improved EF, GBS, history of hemodialysis and prior history of smoking was sent from [facility] due to worsening renal function with elevated creatinine level.. Patient was recently discharged from the hospital on 09/27/2023. Admitted on 08/19/2023. Patient was status post cardiac arrest and respiratory failure requi ring intubation. Patient was treated for acute CHF and hypoxic respiratory failure, ischemic cardiomyopathy ejection fraction improved. Patient was discharged to [facility]. Patient also has right heel stage III pressure ulcer and subacute fracture of the medial and lateral malleolus, no plans for immediate surgical intervention as per orthopedic surgery. She was also treated for E. coli urinary tract infection. Patient was having episodes of vomiting couple days ago and also had diarrhea yesterday. Continue to have nausea and decreased oral intake. Otherwise denies any complaints of abdominal pain. No complaints of diarrhea at today. Patient was recently discharged home with antibiotics, doxycycline on 09/27/2023. Denied any fever or chills. No chest pain or shortness of breath. No cough or sputum production. Chest x-ray showed correlate for mild CHF. Left lower lobe consolidation could be on the basis of pneumonia or chronic atelectasis. Stable from prior exam. EKG showed sinus bradycardia with heart rate 55. Laboratory data showed hemoglobin 8.0, WBC 4.3 and platelets 125 Sodium 134 potassium 6.0 chloride 109 bicarb is 15 BUN 130 and creatinine 3.72 and blood sugar 100 lactic acid 0.6 and calcium 6.3. Magnesium 2.4 alk phos 201 TSH 8.1 and free T40.94 0.97 Urinalysis showed turbid with large blood large leukocyte esterase and elevated RBCs and WBCs. Influenza A B and RSV COVID-19 PCR not detected. Patient was hypotensive with blood pressure 85/59 with pulse of 59 respirations 17 and pulse ox 100% on 2 L oxygen on admission. 10/10/2023 Patient is in the MICU. Awake alert and oriented. No complaints of chest pain or abdominal pain. No nausea or vomiting. Patient's blood pressure is low and remains on pressor support. Also on bicarb drip. Patient is able to make urine. Chest x-ray showed NG tube in good position. Renal ultrasound showed suboptimal study but no gross hydronephrosis identified bilaterally Laboratory data showed WBC 6.8 hemoglobin 7.8 and platelets 128, sodium 138 potassium 5.7 chloride 112 bicarb is 14 BUN 123 and creatinine 3.9 and blood sugar 137 A1c 6.4 calcium 6.1 and procalcitonin level is 0.32 patient remains on antibiotics of ceftriaxone. 10/11/2023 Patient is in the MICU. Awake alert and oriented. Currently on 2 L oxygen via nasal cannula. Otherwise patient is being continued on bicarb drip. Was also given dose of IV Lasix per nephrology for possible pulm overload. Patient does have urine output which is improving. Otherwise patient is being continued on ceftriaxone. Urine culture and blood cultures are pending. Laboratory data showed WBC 4.7 hemoglobin 8.0 and platelets 97 sodium 136 potassium 5.1 chloride 108 bicarb is 17 BUN 119 and creatinine 3.89 and blood sugar 150 and calcium 5.9 and vitamin D level is low at 19.4. Nephrology and pulmonary is on board. 10/12/2023 Patient is in the medical floor. Awake alert and oriented. No complaints of chest pain or shortness of breath. Patient does have good urine output. No nausea vomiting. Tolerating oral diet. Laboratory data showed sodium 138 potassium 4.85 chloride 106 bicarb is 23 BUN 119 and creatinine 3.58 and blood sugar 135 calcium 5.6 and phosphorus 9.3 and albumin 2.5. Patient is being continued on ceftriaxone. Urine culture showed E. coli and Proteus. Patient is also on vitamin D supplementation. 10/13/2023 Patient is resting in the bed. Awake alert and oriented. No complaints of chest pain or shortness of breath. No nausea or vomiting. Patient does have good urine output. Previous laboratory data reviewed. Patient is tolerating oral diet. Scheduled for rectal prolapse. Tomorrow. Continue with vitamin D supplementation and calcium. Albumin 2.5. Nephrology, pulmonary and general surgery is on board. Follow-up CBC and BMP tomorrow. Current medications reviewed. 10/14/2023 Patient is evaluated today on the medical floor sitting up in bed she is awake alert and oriented has family at the bedside. General surgery is following for the rectal prolapse recommending to hold off on surgery at this time due to current clinical condition. Patient is tolerating oral intake at this time. Continues on IV Ceftin at this time for urine culture showing E. coli and Proteus we would ask ID to evaluate for antibiotic coverage for these. Blood work today reveals a white count of 3.1, hemoglobin 8.1, platelet count of 69, sodium 144, potassium 3.2, BUN 95, creatinine 3.09. Calcium 5.9, phosphorus 7.7. Hemodynamically she is stable. Temp today 97.5, 96.7. 10/15/2023 Patient is evaluated in follow-up of medical floor. Alert and oriented x 3 she is tolerating some diet continues to report nausea. Patient is being followed by general surgery with plans for rectal prolapse repair sometime next week. She has been off the Coco hugger now for 24 hours and holding temps 97.4 oral. She is requiring 2 L of oxygen. Cardiology was consulted secondary to episodes of bradycardia. Patient will have a repeat echocardiogram completed. ID has revealed the patient recommending to continue IV ceftriaxone. Her labs are improving white blood cell count 5.0, hemoglobin 8.0, platelet count of 78, BUN of 88, creatinine of 2.64, sodium 142. Calcium level 6.6 has improved. 10/16/2023 Patient is evaluated in follow-up on the stepdown unit she can be transitioned to medical surgical floor. She is currently alert x 3 she is tolerating diet and reporting improvement in her nausea today. Rectal surgery prolapse has been on hold and per cardiology she is a high risk for surgical intervention of any kind. Patient's limited echocardiogram comes back showing an EF of 40 to 45% her ejection fraction back in July of this year was normal. Cardiology has started this patient on Farxiga and have resumed the Plavix. She has been on and off the Coco hugger at this time. We did consult PT for evaluation but we are unsure what her weightbearing status is at this time will likely need to reevaluate orthopedics for evaluation. She continues on IV ceftriaxone. Labs today with a white blood cell count of 6.6, hemoglobin 8.2, platelet count of 76, sodium 143, BUN of 77, creatinine 1.36, glucose of 140s. Calcium 6.9. Review of Systems Constitutional: Denied any fatigue denied any fever. Cardio vascular: denied any chest pain, palpitations Gastrointestinal: denied any nausea, vomiting, diarrhea Pulmonary: Denied any shortness of breath cough Neurologic denied any new focal deficits All inpatient medications were reviewed and appropriate changes in these medications as dictated in the interval history and assessment and plan PHYSICAL EXAMINATION: GENERAL: The patient is alert and oriented x3, not in any acute distress. Well developed, well nourished. HEENT: Pupils are round and equally reacting to light. EOMI. No scleral icterus. No conjunctival pallor. Normocephalic, atraumatic. No pharyngeal erythema. No thyromegaly. CARDIOVASCULAR: S1 and S2 present. No murmurs, rubs, or gallops. PULMONARY: Chest is clear to auscultation, no wheezing or crackles. ABDOMEN: Soft, nontender, nondistended, normoactive bowel sounds. No palpable organomegaly. MUSCULOSKELETAL: No joint swelling or deformity. EXTREMITIES: No cyanosis, clubbing, or pedal edema. NEUROLOGICAL: Gross neurological examination did not reveal any focal deficits. SKIN: No rashes. Assessment and Plan Acute kidney injury likely due to ATN due to hypotension and possible infection. Creatinine 3.72 on admission baseline creatinine around 1.8 Hyperkalemia due to MARYLOU. Improving Non-anion gap metabolic acidosis secondary to above Rectal prolapse CKD stage III stage IIIb due to nephrosclerosis/nephropathy and cardiorenal. Hypotension. Stable. E. coli and Proteus Mirabella's urinary tract infection Possible pneumonia with left lower lobe consolidation on chest x-ray. Vitamin D deficiency Hypertension. Patient is currently hypotensive. Recent admission due Asystole/cardiopulmonary rest and hypoxic respiratory failure. Discharged to [facility] on 09/27/2023. Anemia of chronic disease and iron deficiency anemia, thrombocytopenia Coronary artery disease with history of stent placement to [facility] and May 2023. Chronic CHF with systolic dysfunction Ischemic cardiomyopathy with improved EF Subacute fracture of the medial and lateral malleolus from previous admission. Right heel stage III pressure injury continue local wound care with aquacel ID following. Hyperlipidemia Type 2 diabetes mellitus uncontrolled hgb a1c 12.1 Severe pulmonary hypertension COPD without any acute exacerbation Peripheral neuropathy GI prophylaxis with PPI DVT prophylaxis heparin SQ every 12 Full Code Plan Patient has been started on aranesp. Patient is off the Coco hugger at this time and continue to monitor temps closely. Rectal prolapse surgery on hold for now Replace electrolytes per protocol continues on oral calcium supplementation,. ID consultation for UTI recommending to continue on IV ceftriaxone Has been started Farxiga, resumed on plavix cardiology following closely Wound care consultation for the right heel. Reconsult with orthopedics regarding weight bearing status for the right subacute ankle fracture found back in July. Continue accuchecks ACHS sliding scale insulin. IV lasix increased to BID. PT/OT consultation Replace electrolytes and monitor renal function. Blood work in the AM. The impression and plan of care has been dictated by Susana Roman, Nurse Practitioner as directed. Dr. Riacrdo MD I have performed a history and physical examination and medical decision making of this patient, discussed the same with the dictator, and agree with the dictators assessment and plan as written, documented as a scribe. Based on total visit time, I have performed more than 50% of this visit. Objective - Vital Signs Vital signs: Vital Signs Temp 94.6 F L 10/16/23 13:39 Pulse 78 10/16/23 11:28 Resp 16 10/16/23 11:28 BP 147/84 10/16/23 11:28 Pulse Ox 95 10/16/23 11:28 FiO2 Intake & Output 10/15/23 10/16/23 10/16/23 18:59 06:59 18:59 Intake Total 840 360 Output Total 200 Balance 840 -200 360 Weight 74.5 kg Intake: Oral 840 360 Output: Urine 200 Other: Voiding Method Indwelling Catheter Indwelling Catheter Indwelling Catheter # Bowel Movements 1 - Labs CBC & Chem 7: 10/16/23 10:11 10/16/23 10:11 Labs: Abnormal Lab Results - Last 24 Hours (Table) 10/15/23 10/15/23 10/16/23 Range/Units 16:28 19:59 06:05 RBC (3.80-5.40) m/uL Hgb (11.4-16.0) gm/dL Hct (34.0-46.0) % MCHC (31.0-37.0) g/dL RDW (11.5-15.5) % Plt Count (150-450) k/uL Lymphocytes # (1.0-4.8) k/uL Chloride (98-107) mmol/L BUN (7-17) mg/dL Creatinine (0.52-1.04) mg/dL Glucose (74-99) mg/dL POC Glucose (mg/dL) 145 H 175 H 143 H (70-110) mg/dL Calcium (8.4-10.2) mg/dL 10/16/23 10/16/23 10/16/23 Range/Units 10:11 10:11 11:28 RBC 2.82 L (3.80-5.40) m/uL Hgb 8.2 L (11.4-16.0) gm/dL Hct 27.0 L (34.0-46.0) % MCHC 30.5 L (31.0-37.0) g/dL RDW 18.1 H (11.5-15.5) % Plt Count 76 L (150-450) k/uL Lymphocytes # 0.7 L (1.0-4.8) k/uL Chloride 109 H (98-107) mmol/L BUN 77 H (7-17) mg/dL Creatinine 2.36 H (0.52-1.04) mg/dL Glucose 144 H (74-99) mg/dL POC Glucose (mg/dL) 150 H (70-110) mg/dL Calcium 6.9 L (8.4-10.2) mg/dL Assessment and Plan Time with Patient: Less than 30
[2023-10-16 16:48] LABS: Glucose,Whole Blood 112 mg/dL (70-110)
[2023-10-16] MEDS: DAPAGLIFLOZIN PROPANEDIOL 10 MG TABLET PO SCH (17:30)
[2023-10-16 20:05] LABS: Glucose,Whole Blood 147 mg/dL (70-110)
[2023-10-16] MEDS: FUROSEMIDE 10 MG/ML 4 ML VIAL IV SCH (20:12)
--- NOTE | 2023-10-16 21:46 | XR ---
EXAMINATION TYPE: XR ankle complete RT DATE OF EXAM: 10/16/2023 9:18 PM CLINICAL INDICATION:Female, 58 years old with history of fracture; COMPARISON: [id number] TECHNIQUE: XR ankle complete RT; ankle is imaged in frontal, lateral and oblique projections. FINDINGS/IMPRESSION: 1. Redemonstration of fractures with callus formation of the distal tibia and fibula there is intra- articular extension with anterior subluxation of the ankle. No new fractures visualized. 2. Diffuse osseous demineralization likely secondary to disuse. 3. Severe atherosclerosis of the arterial vasculature.
[2023-10-17 06:06] LABS: Glucose,Whole Blood 107 mg/dL (70-110)
--- NOTE | 2023-10-17 06:50 | P.CNOR ---
History of Present Illness - HPI Consult date: 10/17/23 Consult reason: fracture History of present illness: 58 yo female with extensive medical history s/p ROSC after CA with right trimal ankle fracture. She was seen by my partner and treated in a boot. By her histo ry, which is poor, she likely walked on her fracture causing it to displaced and deteriorate. At the time she was a poor surgical candidate due to wounds on her leg and heel ulcers of which have started to heal but are not complete yet. She states no pain in her right ankle and has some ROM of it at this time. She denies any other sx at this time. She states no numbness, tingling in the foot or toes. Denies any f/c/sob/cp at this time. Review of Systems 16 points review of systems completed and as stated in HPI, all other systems reviewed are negative. Past Medical History Past Medical History: Diabetes Mellitus, Hyperlipidemia, Hypertension, Renal Disease Additional Past Medical History / Comment(s): restless leg, neurothopy, Guillain-Riverton, dialysis History of Any Multi-Drug Resistant Organisms: None Reported Past Surgical History: Orthopedic Surgery, Tonsillectomy Additional Past Surgical History / Comment(s): "plate in left leg to straighten leg as a child" - plate removed, right total hip replacement due to a fracture from a fall, dialysis Past Anesthesia/Blood Transfusion Reactions: No Reported Reaction Past Psychological History: No Psychological Hx Reported Smoking Status: Former smoker Past Alcohol Use History: None Reported Past Drug Use History: None Reported Medications and Allergies Home Medications Medication Instructions Recorded Confirmed Type rOPINIRole HCL [Requip] 1 mg PO HS 04/17/23 10/09/23 History Aspirin 81 mg PO DAILY 90 Days #90 tab 06/25/23 10/09/23 Rx Acetaminophen Tab [Tylenol] 650 mg PO Q6HR PRN tab 09/27/23 10/09/23 Rx Bumetanide [BUMEX] 1 mg PO DAILY tab 09/27/23 10/09/23 Rx Clopidogrel [Plavix] 75 mg PO DAILY tab 09/27/23 10/09/23 Rx Docusate [Colace] 100 mg PO BID cap 09/27/23 10/09/23 Rx Fluticasone Nasal [place] [Flonase 2 spray EA NOSTRIL DAILY ml 09/27/23 10/09/23 Rx Nasal [place]] Folic Acid 1 mg PO DAILY tab 09/27/23 10/09/23 Rx Isosorbide Mononitrate ER [Imdur] 30 mg PO DAILY tab 09/27/23 10/09/23 Rx Lidocaine 4% Patch 1 patch TOPICAL DAILY patch 09/27/23 10/09/23 Rx Melatonin 5 mg PO HS tab 09/27/23 10/09/23 Rx Metoprolol Succinate (ER) [Toprol 12.5 mg PO DAILY tab 09/27/23 10/09/23 Rx XL] Spironolactone [Aldactone] 12.5 mg PO DAILY tab 09/27/23 10/09/23 Rx Thiamine [Vitamin B-1] 100 mg PO DAILY tab 09/27/23 10/09/23 Rx fluPHENAZine [Prolixin] 5 mg PO Q6HR PRN tab 09/27/23 10/09/23 Rx hydrALAZINE HCL [Apresoline] 25 mg PO TID tab 09/27/23 10/09/23 Rx rOPINIRole HCL [Requip] 1 mg PO HS PRN tab 09/27/23 10/09/23 Rx DULoxetine HCL [Cymbalta] 20 mg PO DAILY 10/09/23 10/09/23 History Dapagliflozin Propanediol [Farxiga] 5 mg PO DAILY 10/09/23 10/09/23 History Darbepoetin Frantz [Aranesp] 40 mcg SQ SA 10/09/23 10/09/23 History Dextrose Chew [Glucose Chew Tab] 4 gm PO DIRECTED PRN 10/09/23 10/09/23 History Healthshake 1 dose PO BID 10/09/23 10/09/23 History Ipratropium-Albuterol Nebulize 3 ml INHALATION RT-Q6H PRN 10/09/23 10/09/23 History [Duoneb 0.5 mg-3 mg/3 ml Soln] Multivitamins, Thera [Multivitamin 1 tab PO DAILY 10/09/23 10/09/23 History (formulary)] Sodium Chloride [Saline Mist] 2 spray EA NOSTRIL TID 10/09/23 10/09/23 History amLODIPine [Norvasc] 5 mg PO DAILY 10/09/23 10/09/23 History risperiDONE [RisperDAL] 2 mg PO BID 10/09/23 10/09/23 History Allergies Allergy/AdvReac Type Severity Reaction Status Date / Time No Known Allergies Allergy Verified 10/09/23 11:40 Physical Examination Osteopathic Statement: *. No significant issues noted on an osteopathic structural exam other than those noted in the History and Physical/Consult. Physical Exam: -Patient is alert and oriented 3 appears well-nourished well-hydrated is in no acute distress. They do not appear septic. -There is No tenderness to palpation about the right ankle which is mostly deformed there are wounds over the anterior portion of the right lower leg and swann as well as the heel which are healing however not completely healed yet -Upper extremities show [5] out of 5 strength in all major muscle groups. -Lower extremities with [5] out of 5 strength in all major muscle groups except for right ankle dorsiflexion plantar flexion which is 3+ secondary fracture -There is [FROM] that is [painless] of the b/l UE and LE in all major joints. negative logroll bilaterally negative straight leg raise. She does have painless range of motion of his right ankle however it is unstable with motion -They are intact to light touch sensation in C5 to T1 and L2 to S1 nerve distribution. -DTR [2]/4 all upper and lower extremities -Patient has palpable distal pulses all 4 ext -Compartments are soft and compressible. -Patient shows a negative Jamie's [-Neg Hoffmans b/l] [-Neg Clonus b/l] [-Neg babinski b/l] Cranial nerves II through XII are grossly intact. instability within the right ankle on testing anterior posterior drawer as well as inversion Results x-rays right ankle demonstrate the right trimalleolar ankle fracture dislocation which is now sequelae it into a right ankle suitable articulation with likely Charcot joint forming. This is due to fracture displacement and collapse of the tibiotalar joint as well as subtalar joint. No other osseous abdomen is noted at this time. - Labs Labs: Abnormal Lab Results - Last 24 Hours (Table) 10/16/23 10/16/23 10/16/23 Range/Units 10:11 10:11 11:28 RBC 2.82 L (3.80-5.40) m/uL Hgb 8.2 L (11.4-16.0) gm/dL Hct 27.0 L (34.0-46.0) % MCHC 30.5 L (31.0-37.0) g/dL RDW 18.1 H (11.5-15.5) % Plt Count 76 L (150-450) k/uL Lymphocytes # 0.7 L (1.0-4.8) k/uL Chloride 109 H (98-107) mmol/L BUN 77 H (7-17) mg/dL Creatinine 2.36 H (0.52-1.04) mg/dL Glucose 144 H (74-99) mg/dL POC Glucose (mg/dL) 150 H (70-110) mg/dL Calcium 6.9 L (8.4-10.2) mg/dL 10/16/23 10/16/23 Range/Units 16:47 20:04 RBC (3.80-5.40) m/uL Hgb (11.4-16.0) gm/dL Hct (34.0-46.0) % MCHC (31.0-37.0) g/dL RDW (11.5-15.5) % Plt Count (150-450) k/uL Lymphocytes # (1.0-4.8) k/uL Chloride (98-107) mmol/L BUN (7-17) mg/dL Creatinine (0.52-1.04) mg/dL Glucose (74-99) mg/dL POC Glucose (mg/dL) 112 H 147 H (70-110) mg/dL Calcium (8.4-10.2) mg/dL H & H 10/09/23 10/10/23 10/11/23 Range/Units 11:46 03:17 03:57 Hgb 8.0 L 7.8 L 8.0 L (11.4-16.0) gm/dL Hct 27.4 L 25.7 L 27.5 L (34.0-46.0) % 10/14/23 10/15/23 10/16/23 Range/Units 08:10 09:59 10:11 Hgb 8.1 L 8.0 L 8.2 L (11.4-16.0) gm/dL Hct 28.6 L 27.7 L 27.0 L (34.0-46.0) % Coagulation 10/09/23 Range/Units 11:46 INR 1.0 (<1.2) Result Diagrams: 10/16/23 10:11 10/16/23 10:11 Assessment and Plan (1) Trimalleolar fracture of ankle, closed Current Visit: Yes Status: Acute Code(s): S82.853A - DISPLACED TRIMALLEOLAR FRACTURE OF UNSP LOWER LEG, INIT SNOMED Code(s): 0088393 (2) Charcot ankle Current Visit: Yes Status: Acute Code(s): M14.679 - CHARCOT'S JOINT, UNSPECIFIED ANKLE AND FOOT SNOMED Code(s): 236739221 Plan: -WBAT in Fracture boot of RLE. At this time the ankle is at a stable point and will need a fusion eventually on an out patient basis. -pain control if needed -F/U Dr. Kent
[2023-10-17 09:30] LABS: African American GFR (CKD) 26 (>60 ml/min/1.73 sqM); Anion Gap 6 mmol/L; Blood Urea Nitrogen 66 mg/dL (7-17); Calcium 7.3 mg/dL (8.4-10.2); Carbon Dioxide 32 mmol/L (22-30); Chloride 106 mmol/L (98-107); Glucose 110 mg/dL (74-99); Non-African American GFR(CKD) 23 (>60 ml/min/1.73 sqM); Potassium 3.8 mmol/L (3.5-5.1); Sodium 144 mmol/L (137-145)
--- NOTE | 2023-10-17 10:29 | P.PN ---
Subjective Patient is seen in follow-up for acute kidney injury on chronic kidney disease. Denies chest pain or shortness of breath. Has [place] catheter. Nonoliguric. On IV Lasix. Renal function stable. No active complaints. Vital signs are stable. General: No acute distress. HEENT: Head exam is unremarkable. On nasal cannula. LUNGS: No audible rhonchi or wheezes. HEART: Rate and Rhythm are regular. ABDOMEN: Nontender. EXTREMITITES: 2+ edema. Objective - Vital Signs Vital signs: Vital Signs Temp 96.6 F L 10/17/23 08:00 Pulse 75 10/17/23 08:00 Resp 18 10/17/23 08:00 BP 145/84 10/17/23 08:00 Pulse Ox 93 L 10/17/23 08:00 FiO2 Intake & Output 10/16/23 10/17/23 10/17/23 18:59 06:59 18:59 Intake Total 720 240 Output Total 750 1850 500 Balance -30 0 -260 Weight 74.5 kg Intake: Oral 720 240 Output: Urine 750 1850 500 Other: Voiding Method Indwelling Catheter Indwelling Catheter Indwelling Catheter # Bowel Movements 2 1 1 - Labs CBC & Chem 7: 10/16/23 10:11 10/17/23 07:35 Labs: Abnormal Lab Results - Last 24 Hours (Table) 10/16/23 10/16/23 10/16/23 Range/Units 10:11 10:11 11:28 RBC 2.82 L (3.80-5.40) m/uL Hgb 8.2 L (11.4-16.0) gm/dL Hct 27.0 L (34.0-46.0) % MCHC 30.5 L (31.0-37.0) g/dL RDW 18.1 H (11.5-15.5) % Plt Count 76 L (150-450) k/uL Lymphocytes # 0.7 L (1.0-4.8) k/uL Chloride 109 H (98-107) mmol/L Carbon Dioxide (22-30) mmol/L BUN 77 H (7-17) mg/dL Creatinine 2.36 H (0.52-1.04) mg/dL Glucose 144 H (74-99) mg/dL POC Glucose (mg/dL) 150 H (70-110) mg/dL Calcium 6.9 L (8.4-10.2) mg/dL 10/16/23 10/16/23 10/17/23 Range/Units 16:47 20:04 07:35 RBC (3.80-5.40) m/uL Hgb (11.4-16.0) gm/dL Hct (34.0-46.0) % MCHC (31.0-37.0) g/dL RDW (11.5-15.5) % Plt Count (150-450) k/uL Lymphocytes # (1.0-4.8) k/uL Chloride (98-107) mmol/L Carbon Dioxide 32 H (22-30) mmol/L BUN 66 H (7-17) mg/dL Creatinine 2.29 H (0.52-1.04) mg/dL Glucose 110 H (74-99) mg/dL POC Glucose (mg/dL) 112 H 147 H (70-110) mg/dL Calcium 7.3 L (8.4-10.2) mg/dL Assessment and Plan Plan: Assessment: 1. Acute kidney injury secondary to ATN secondary to severe sepsis. Now also component of cardiorenal syndrome. Renal function improving with diuresis. Creatinine 2.29 today. 2. Severe sepsis due to UTI on antibiotics. 3. Metabolic acidosis secondary to acute kidney injury improved with bicarb drip. On oral bicarb. Better. 4. Hyperkalemia secondary to acute kidney injury and metabolic acidosis. Resolved. 5. History of cardiac arrest. 6. Chronic kidney disease stage IIIb with baseline creatinine 1.5-1.8. Patient required renal replacement therapy in the past. 7. Rectal prolapse. Surgery following. 8. Chronic kidney disease mineral bone disease with hypocalcemia and hyperphosphatemia. On PhosLo. Better. 9. Diabetes mellitus. 10. Anemia of chronic kidney disease maintained on Aranesp. 11. Cardiomyopathy ejection fraction of 40 to 45% with mild to moderate mitral regurgitation and moderate tricuspid regurgitation. Plan: Maintain IV Lasix. Stop SGLT2 inhibitor due to acute infection/UTI. Avoid nephrotoxins. Continue to monitor renal function and urine output.
[2023-10-17 11:27] LABS: Glucose,Whole Blood 153 mg/dL (70-110)
[2023-10-17 11:31] VITALS: BMI 29.0
--- NOTE | 2023-10-17 13:34 | P.PN ---
Subjective Progress Note Date: 10/17/23 Patient is a 58-year-old female with a past medical history of hypertension, hyperlipidemia, diabetes type 2, CKD stage III with baseline creatinine around 1.8, ischemic cardiomyopathy with improved EF, GBS, history of hemodialysis and prior history of smoking was sent from [facility] due to worsening renal function with elevated creatinine level.. Patient was recently discharged from the hospital on 09/27/2023. Admitted on 08/19/2023. Patient was status post cardiac arrest and respiratory failure requi ring intubation. Patient was treated for acute CHF and hypoxic respiratory failure, ischemic cardiomyopathy ejection fraction improved. Patient was discharged to [facility]. Patient also has right heel stage III pressure ulcer and subacute fracture of the medial and lateral malleolus, no plans for immediate surgical intervention as per orthopedic surgery. She was also treated for E. coli urinary tract infection. Patient was having episodes of vomiting couple days ago and also had diarrhea yesterday. Continue to have nausea and decreased oral intake. Otherwise denies any complaints of abdominal pain. No complaints of diarrhea at today. Patient was recently discharged home with antibiotics, doxycycline on 09/27/2023. Denied any fever or chills. No chest pain or shortness of breath. No cough or sputum production. Chest x-ray showed correlate for mild CHF. Left lower lobe consolidation could be on the basis of pneumonia or chronic atelectasis. Stable from prior exam. EKG showed sinus bradycardia with heart rate 55. Laboratory data showed hemoglobin 8.0, WBC 4.3 and platelets 125 Sodium 134 potassium 6.0 chloride 109 bicarb is 15 BUN 130 and creatinine 3.72 and blood sugar 100 lactic acid 0.6 and calcium 6.3. Magnesium 2.4 alk phos 201 TSH 8.1 and free T40.94 0.97 Urinalysis showed turbid with large blood large leukocyte esterase and elevated RBCs and WBCs. Influenza A B and RSV COVID-19 PCR not detected. Patient was hypotensive with blood pressure 85/59 with pulse of 59 respirations 17 and pulse ox 100% on 2 L oxygen on admission. 10/10/2023 Patient is in the MICU. Awake alert and oriented. No complaints of chest pain or abdominal pain. No nausea or vomiting. Patient's blood pressure is low and remains on pressor support. Also on bicarb drip. Patient is able to make urine. Chest x-ray showed NG tube in good position. Renal ultrasound showed suboptimal study but no gross hydronephrosis identified bilaterally Laboratory data showed WBC 6.8 hemoglobin 7.8 and platelets 128, sodium 138 potassium 5.7 chloride 112 bicarb is 14 BUN 123 and creatinine 3.9 and blood sugar 137 A1c 6.4 calcium 6.1 and procalcitonin level is 0.32 patient remains on antibiotics of ceftriaxone. 10/11/2023 Patient is in the MICU. Awake alert and oriented. Currently on 2 L oxygen via nasal cannula. Otherwise patient is being continued on bicarb drip. Was also given dose of IV Lasix per nephrology for possible pulm overload. Patient does have urine output which is improving. Otherwise patient is being continued on ceftriaxone. Urine culture and blood cultures are pending. Laboratory data showed WBC 4.7 hemoglobin 8.0 and platelets 97 sodium 136 potassium 5.1 chloride 108 bicarb is 17 BUN 119 and creatinine 3.89 and blood sugar 150 and calcium 5.9 and vitamin D level is low at 19.4. Nephrology and pulmonary is on board. 10/12/2023 Patient is in the medical floor. Awake alert and oriented. No complaints of chest pain or shortness of breath. Patient does have good urine output. No nausea vomiting. Tolerating oral diet. Laboratory data showed sodium 138 potassium 4.85 chloride 106 bicarb is 23 BUN 119 and creatinine 3.58 and blood sugar 135 calcium 5.6 and phosphorus 9.3 and albumin 2.5. Patient is being continued on ceftriaxone. Urine culture showed E. coli and Proteus. Patient is also on vitamin D supplementation. 10/13/2023 Patient is resting in the bed. Awake alert and oriented. No complaints of chest pain or shortness of breath. No nausea or vomiting. Patient does have good urine output. Previous laboratory data reviewed. Patient is tolerating oral diet. Scheduled for rectal prolapse. Tomorrow. Continue with vitamin D supplementation and calcium. Albumin 2.5. Nephrology, pulmonary and general surgery is on board. Follow-up CBC and BMP tomorrow. Current medications reviewed. 10/14/2023 Patient is evaluated today on the medical floor sitting up in bed she is awake alert and oriented has family at the bedside. General surgery is following for the rectal prolapse recommending to hold off on surgery at this time due to current clinical condition. Patient is tolerating oral intake at this time. Continues on IV Ceftin at this time for urine culture showing E. coli and Proteus we would ask ID to evaluate for antibiotic coverage for these. Blood work today reveals a white count of 3.1, hemoglobin 8.1, platelet count of 69, sodium 144, potassium 3.2, BUN 95, creatinine 3.09. Calcium 5.9, phosphorus 7.7. Hemodynamically she is stable. Temp today 97.5, 96.7. 10/15/2023 Patient is evaluated in follow-up of medical floor. Alert and oriented x 3 she is tolerating some diet continues to report nausea. Patient is being followed by general surgery with plans for rectal prolapse repair sometime next week. She has been off the Coco hugger now for 24 hours and holding temps 97.4 oral. She is requiring 2 L of oxygen. Cardiology was consulted secondary to episodes of bradycardia. Patient will have a repeat echocardiogram completed. ID has revealed the patient recommending to continue IV ceftriaxone. Her labs are improving white blood cell count 5.0, hemoglobin 8.0, platelet count of 78, BUN of 88, creatinine of 2.64, sodium 142. Calcium level 6.6 has improved. 10/16/2023 Patient is evaluated in follow-up on the stepdown unit she can be transitioned to medical surgical floor. She is currently alert x 3 she is tolerating diet and reporting improvement in her nausea today. Rectal surgery prolapse has been on hold and per cardiology she is a high risk for surgical intervention of any kind. Patient's limited echocardiogram comes back showing an EF of 40 to 45% her ejection fraction back in July of this year was normal. Cardiology has started this patient on Farxiga and have resumed the Plavix. She has been on and off the Coco hugger at this time. We did consult PT for evaluation but we are unsure what her weightbearing status is at this time will likely need to reevaluate orthopedics for evaluation. She continues on IV ceftriaxone. Labs today with a white blood cell count of 6.6, hemoglobin 8.2, platelet count of 76, sodium 143, BUN of 77, creatinine 1.36, glucose of 140s. Calcium 6.9. 10/16. Patient seen and examined. States she feels better. Still complaining of lethargy and weakness REVIEW OF SYSTEMS: CONSTITUTIONAL: No fever, no malaise,. CARDIOVASCULAR: No chest pain, no palpitations, no syncope. PULMONARY: No shortness of breath, no cough, GASTROINTESTINAL: No diarrhea, no nausea, no vomiting, no abdominal pain. NEUROLOGICAL: No headaches, no weakness, PHYSICAL EXAMINATION: GENERAL: The patient is alert and oriented x3, ill looking HEENT: Pupils are round and equally reacting to light. EOMI. No scleral icterus. No conjunctival pallor. Normocephalic, atraumatic. No pharyngeal erythema. No thyromegaly. CARDIOVASCULAR: S1 and S2 present. No murmurs, rubs, or gallops. PULMONARY: Chest is clear to auscultation, no wheezing or crackles. ABDOMEN: Soft, nontender, nondistended, normoactive bowel sounds. No palpable organomegaly. MUSCULOSKELETAL: No joint swelling or deformity. EXTREMITIES: No cyanosis, clubbing, or pedal edema. NEUROLOGICAL: Gross neurological examination did not reveal any focal deficits. SKIN: No rashes. Assessment and plan Acute kidney injury likely due to ATN due to hypotension and possible infection. Creatinine 3.72 on admission baseline creatinine around 1.8 Hyperkalemia due to MARYLOU. Improving Non-anion gap metabolic acidosis secondary to above Rectal prolapse CKD stage III stage IIIb due to nephrosclerosis/nephropathy and cardiorenal. Hypotension. Stable. E. coli and Proteus Mirabella's urinary tract infection Possible pneumonia with left lower lobe consolidation on chest x-ray. Vitamin D deficiency Hypertension. Patient is currently hypotensive. Recent admission due Asystole/cardiopulmonary rest and hypoxic respiratory failure. Discharged to [facility] on 09/27/2023. Anemia of chronic disease and iron deficiency anemia, thrombocytopenia Coronary artery disease with history of stent placement to [facility] and May 2023. Chronic CHF with systolic dysfunction Ischemic cardiomyopathy with improved EF Subacute fracture of the medial and lateral malleolus from previous admission. Right heel stage III pressure injury continue local wound care with aquacel ID following. Hyperlipidemia Type 2 diabetes mellitus uncontrolled hgb a1c 12.1 Severe pulmonary hypertension COPD without any acute exacerbation Peripheral neuropathy GI prophylaxis with PPI DVT prophylaxis heparin SQ every 12 Full Code Plan Monitor vital sign -monitor CBC Monitor CMP Continue aranesp. Patient is off the Coco hugger at this time and continue to monitor temps closely. Rectal prolapse surgery on hold for now Replace electrolytes per protocol continues on oral calcium supplementation,. continue on IV ceftriaxone Continue Plavix Wound care consultation for the right heel. Continue accuchecks ACHS sliding scale insulin. IV lasix increased to BID. PT/OT consultation ID followingcardiology following Orthopedic consult, recommend WBAT in Fracture boot of RLE Labs and medication were reviewed.. Continue same treatment. Continue with symptomatic treatment. Resume home medication. Monitor labs and vitals. DVT and GI prophylaxis. Further recommendations as per clinical course of the patient Dictation was produced using Sparkbrowser dictation software. please excuse any grammatical, word or spelling errors. Objective - Vital Signs Vital signs: Vital Signs Temp 97.1 F L 10/17/23 03:44 Pulse 74 10/17/23 03:44 Resp 18 10/17/23 03:44 BP 140/74 10/17/23 03:44 Pulse Ox 93 L 10/17/23 03:44 FiO2 Intake & Output 10/16/23 10/17/23 10/17/23 18:59 06:59 18:59 Intake Total 720 240 Output Total 750 1850 Balance -30 -1850 240 Weight 74.5 kg Intake: Oral 720 240 Output: Urine 750 1850 Other: Voiding Method Indwelling Catheter Indwelling Catheter # Bowel Movements 2 1 1 - Labs CBC & Chem 7: 10/16/23 10:11 10/17/23 07:35 Labs: Abnormal Lab Results - Last 24 Hours (Table) 10/16/23 10/16/23 10/16/23 Range/Units 10:11 10:11 11:28 RBC 2.82 L (3.80-5.40) m/uL Hgb 8.2 L (11.4-16.0) gm/dL Hct 27.0 L (34.0-46.0) % MCHC 30.5 L (31.0-37.0) g/dL RDW 18.1 H (11.5-15.5) % Plt Count 76 L (150-450) k/uL Lymphocytes # 0.7 L (1.0-4.8) k/uL Chloride 109 H (98-107) mmol/L Carbon Dioxide (22-30) mmol/L BUN 77 H (7-17) mg/dL Creatinine 2.36 H (0.52-1.04) mg/dL Glucose 144 H (74-99) mg/dL POC Glucose (mg/dL) 150 H (70-110) mg/dL Calcium 6.9 L (8.4-10.2) mg/dL 10/16/23 10/16/23 10/17/23 Range/Units 16:47 20:04 07:35 RBC (3.80-5.40) m/uL Hgb (11.4-16.0) gm/dL Hct (34.0-46.0) % MCHC (31.0-37.0) g/dL RDW (11.5-15.5) % Plt Count (150-450) k/uL Lymphocytes # (1.0-4.8) k/uL Chloride (98-107) mmol/L Carbon Dioxide 32 H (22-30) mmol/L BUN 66 H (7-17) mg/dL Creatinine 2.29 H (0.52-1.04) mg/dL Glucose 110 H (74-99) mg/dL POC Glucose (mg/dL) 112 H 147 H (70-110) mg/dL Calcium 7.3 L (8.4-10.2) mg/dL
--- NOTE | 2023-10-17 13:36 | P.PN ---
Subjective Progress Note Date: 10/17/23 CHIEF COMPLAINT: Worsening renal function UTI HISTORY OF PRESENT ILLNESS: Patient currently on the cardiac floor. Denies any rectal pain. Surgical service following regards to patient's rectal prolapse. Afebrile. Nephrology still has patient on IV Lasix. Cr 2.29. PHYSICAL EXAM: VITAL SIGNS: Reviewed. GENERAL: no acute distress. ABDOMEN: Soft. Nondistended. Nontender. ASSESSMENT: 1. Rectal prolapse 2. Acute on chronic renal failure 3. UTI with hypotension 4. History of coronary disease with cardiac stent placed in May 2023 5. Recent cardiopulmonary arrest on last hospitalization 6. Hyperphosphatemia PLAN: -Recommend lower anterior resection for rectal prolapse when patient is medically stable -Patient is high risk surgical candidate as noted per cardiology Physician Jigman note has been reviewed by physician. Signing provider agrees with the documented findings, assessment, and plan of care. I have personally seen and examined the patient, reviewed the DORMITORY MAID /PAs history, exam and MDM and agree with the assessment and plan as written. Based on total visit time, I have performed more than 50% of the visit. As above: Patient still complaining of prolapse today. Tolerating diet. No nausea or vomiting. No abdominal distention. Apparently patient scheduled for possible low anterior resection on Saturday. Will discuss further with consultants. Objective - Vital Signs Vital signs: Vital Signs Temp 96.6 F L 10/17/23 08:00 Pulse 75 10/17/23 08:00 Resp 18 10/17/23 08:00 BP 145/84 10/17/23 08:00 Pulse Ox 93 L 10/17/23 08:00 FiO2 Intake & Output 10/16/23 10/17/23 10/17/23 18:59 06:59 18:59 Intake Total 720 240 Output Total 750 1850 500 Balance -30 -9250 -260 Weight 74.5 kg 74.5 kg Intake: Oral 720 240 Output: Urine 750 1850 500 Other: Voiding Method Indwelling Catheter Indwelling Catheter Indwelling Catheter # Bowel Movements 2 1 1 - Labs CBC & Chem 7: 10/16/23 10:11 10/17/23 07:35 Labs: Abnormal Lab Results - Last 24 Hours (Table) 10/16/23 10/16/23 10/16/23 Range/Units 10:11 16:47 20:04 Plt Count 76 L (150-450) k/uL Lymphocytes # 0.7 L (1.0-4.8) k/uL Carbon Dioxide (22-30) mmol/L BUN (7-17) mg/dL Creatinine (0.52-1.04) mg/dL Glucose (74-99) mg/dL POC Glucose (mg/dL) 112 H 147 H (70-110) mg/dL Calcium (8.4-10.2) mg/dL 10/17/23 10/17/23 Range/Units 07:35 11:25 Plt Count (150-450) k/uL Lymphocytes # (1.0-4.8) k/uL Carbon Dioxide 32 H (22-30) mmol/L BUN 66 H (7-17) mg/dL Creatinine 2.29 H (0.52-1.04) mg/dL Glucose 110 H (74-99) mg/dL POC Glucose (mg/dL) 153 H (70-110) mg/dL Calcium 7.3 L (8.4-10.2) mg/dL
[2023-10-17 16:40] LABS: Glucose,Whole Blood 136 mg/dL (70-110)
--- NOTE | 2023-10-17 17:04 | P.PN ---
Subjective Progress Note Date: 10/17/23 Principal diagnosis: Reason for follow-up is resistant urinary tract infection Patient is a 55-year-old female with a past medical history significant for diabetes mellitus hypertension hyperlipidemia renal disease requiring dialysis at 1 point also with the right heel diabetic foot ulcer patient has been brought to the hospital concerning for worsening of her kidney function also noticed to be hypothermic positive UA concerning for symptomatic heeltap infection urine culture finalized with resistant E. coli and Proteus. On today's evaluation that is 10/17/2023, Patient is afebrile this morning and denies any chills, patient mention breathing comfortably and is currently on 2 L current oxygen patient denies any chest pain occasional cough patient denies any abdominal pain no diarrhea no nausea no vomiting, no pain to the right heel wound. Patient did have a creatinine of 2.29 Objective - Vital Signs Vital signs: Vital Signs Temp 96.6 F L 10/17/23 08:00 Pulse 75 10/17/23 08:00 Resp 18 10/17/23 08:00 BP 145/84 10/17/23 08:00 Pulse Ox 93 L 10/17/23 08:00 FiO2 Intake & Output 10/16/23 10/17/23 10/17/23 18:59 06:59 18:59 Intake Total 720 240 Output Total 750 1850 500 Balance -30 -1850 -260 Weight 74.5 kg 74.5 kg Intake: Oral 720 240 Output: Urine 750 1850 500 Other: Voiding Method Indwelling Catheter Indwelling Catheter Indwelling Catheter # Bowel Movements 2 1 1 - Exam GENERAL DESCRIPTION: Middle-aged female lying in bed in no distress RESPIRATORY SYSTEM: Unlabored breathing , decreased breath sounds at bases HEART: S1 S2 regular rate and rhythm , ABDOMEN: Soft , no tenderness EXTREMITIES: Right heel wound is currently dressed - Labs CBC & Chem 7: 10/16/23 10:11 10/17/23 07:35 Labs: Abnormal Lab Results - Last 24 Hours (Table) 10/16/23 10/16/23 10/17/23 Range/Units 16:47 20:04 07:35 Carbon Dioxide 32 H (22-30) mmol/L BUN 66 H (7-17) mg/dL Creatinine 2.29 H (0.52-1.04) mg/dL Glucose 110 H (74-99) mg/dL POC Glucose (mg/dL) 112 H 147 H (70-110) mg/dL Calcium 7.3 L (8.4-10.2) mg/dL 10/17/23 Range/Units 11:25 Carbon Dioxide (22-30) mmol/L BUN (7-17) mg/dL Creatinine (0.52-1.04) mg/dL Glucose (74-99) mg/dL POC Glucose (mg/dL) 153 H (70-110) mg/dL Calcium (8.4-10.2) mg/dL Assessment and Plan (1) Pressure ulcer of right heel, stage 3 Current Visit: No Status: Acute Code(s): L89.613 - PRESSURE ULCER OF RIGHT HEEL, STAGE 3 SNOMED Code(s): 61346418291854 (2) Type 2 diabetes mellitus with foot ulcer Current Visit: No Status: Acute Code(s): E11.621 - TYPE 2 DIABETES MELLITUS WITH FOOT ULCER; L97.509 - NON-PRESSURE CHRONIC ULCER OTH PRT UNSP FOOT W UNSP SEVERITY SNOMED Code(s): 112478418 (3) UTI (urinary tract infection) Current Visit: No Status: Acute Code(s): N39.0 - URINARY TRACT INFECTION, SITE NOT SPECIFIED SNOMED Code(s): 55406501 Plan: 1patient presented to hospital with worsening of her kidney function and this patient also have significantly positive with some urinary symptoms of retention requiring Hays catheter placement now with urine growing drug-resistant E. coli as well as Proteus as the patient was significantly hypothermic on admission a component of UTI likely 2--local wound care to the right heel wound with Aquacel silver dressing change every 48 hours and keep the area of the pressure 3-patient to continue Rocephin 2 g daily and monitor clinical course closely Dictation was produced using [employer] dictation software. please excuse any grammatical, word or spelling errors. Time with Patient: Less than 30
[2023-10-17 20:59] LABS: Glucose,Whole Blood 133 mg/dL (70-110)
[2023-10-18 05:47] LABS: Glucose,Whole Blood 90 mg/dL (70-110)
[2023-10-18 10:41] LABS: Basophils # (A) 0.04 X 10*3/uL (0.00-0.10); Basophils % (A) 0.7 %; Eosinophils # (A) 0.32 X 10*3/uL (0.04-0.35); Eosinophils % (A) 5.7 %; HCT 26.5 % (37.2-46.3); HGB 7.6 g/dL (12.0-15.0); Lymphocytes # (A) 0.67 X 10*3/uL (0.90-5.00); MCH 28.6 pg (27.0-32.0); MCHC 28.7 g/dL (32.0-37.0); MCV 99.6 FL (80.0-97.0); Mean Platelet Volume 12.1 FL (9.5-12.2); Monocytes # (A) 0.43 X 10*3/uL (0.20-1.00); Monocytes % (A) 7.7 %; NRBC Per 100 WBC 0 X 10*3/uL (0.00-0.01); Neutrophils # (A) 4.09 X 10*3/uL (1.80-7.70); Neutrophils % (A) 73.2 %; Platelet Count 100 X 10*3/uL (140-440); RBC 2.66 X 10*6/uL (4.10-5.20); RDW 19.4 % (11.5-14.5); WBC 5.59 X 10*3/uL (4.50-10.00)
[2023-10-18 10:44] LABS: ALT 14 U/L (8-44); AST 17 U/L (13-35); Albumin 2.8 g/dL (3.8-4.9); Albumin/Globulin Ratio 0.78 Ratio (1.60-3.17); Alkaline Phosphatase 161 U/L (41-126); BUN/Creat Ratio 27.05 Ratio (12.00-20.00); Blood Urea Nitrogen 59.5 mg/dL (9.0-27.0); Calcium 7.5 mg/dL (8.7-10.3); Carbon Dioxide 30.6 mmol/L (21.6-31.8); Chloride 107 mmol/L (96-109); Globulin 3.6 g/dL (1.6-3.3); Glucose 84 mg/dL (70-110); Potassium 4.1 mmol/L (3.5-5.5); Sodium 148 mmol/L (135-145); Total Bilirubin 0.3 mg/dL (0.3-1.2); Total Protein 6.4 g/dL (6.2-8.2)
[2023-10-18 11:42] LABS: Glucose,Whole Blood 128 mg/dL (70-110)
--- NOTE | 2023-10-18 11:56 | P.PN ---
Subjective HISTORY OF PRESENT ILLNESS: This is a 58-year-old female patient of Dr. Jose with a past medical history significant for coronary artery disease with previous stenting, cardiomyopathy, hypertension, hyperlipidemia, diabetes, severe pulmonary hypertension, COPD, and chronic kidney disease previously on hemodialysis. We have been asked to see the patient in consultation for bradycardic episodes and extensive cardiac history. Patient was recently discharged from the hospital on 09/26 and went to the skilled nursing. She had previous hospitalization for cardiopulmonary arrest, anoxic encephalopathy. She has history of a stent to the RCA on 05/2023. Patient was brought back into the hospital due to abnormal lab work found to have acute kidney injury with creatinine of 3.72. Along with hyperkalemia, sepsis with possible UTI, fracture of the malleolus, rectal prolapse and scheduled for repair of the rectal prolapse today. Patient denies having any chest pain chest pressure, no palpitations, no dizziness. She previously was having some nausea and vomiting but none at this time. She denies any blood in her urine or stools. No cough or fever. Patient has been on on IV sodium bicarb currently on oral as well as received daily dosed IV Lasix. Patient required norepinephrine at the time of admission back on 10/08. Patient's beta-satnam and blood pressure medications have not been resumed. Plavix is also on hold. Patient had episodes of heart rate at 40 on both 10/12 and 10/13. EKG reveals sinus mechanism Chest xray performed on 10/11 revealed no overt failure. Atelectasis favored over pneumonia. Left lower lobe retrocardiac consolidation represents atelectasis or infiltrate. Laboratory data: WBC 4.7, hemoglobin 8, platelet count 97. BUN 119, creatinine 3.58. Calcium 5.6. Phosphorus 9.3. Magnesium 2.1. Albumin 2.5. Procalcitonin 0.32. TSH 8.16. Urinalysis with leukoesterase large, RBCs greater than 182, WBC greater than 182. Squamous cells 19. Current home cardiac medications include amlodipine 5 mg daily, aspirin 81 mg daily, Bumex 1 mg daily, Plavix 75 mg daily, Farxiga 5 mg daily, hydralazine 25 mg 3 times daily, Imdur 30 mg daily, Toprol-XL 12.5 mg daily, Aldactone 12.5 mg daily. Most recent echocardiogram obtained in 08/20/2023 reveals LVH with preserved systolic function. Increased right ventricular systolic pressures. Cardiac catheterization history: 06/24/2023 with stenting of the proximal RCA 10/14 Patient is seen today in follow-up. Heart rate is running in the 70s. Patient noted to have a bloody nose which apparently her nurse and nurse aide are well aware of. Blood pressure 147/82, pulse ox 92% on room air. Repeat blood work for today is not reported at the time of this dictation. Rectal prolapse surgery that was scheduled for yesterday has been canceled. 10/15 Patient is seen today in follow-up. She denies having any chest pain or shortness of breath. Patient has a bear blanket on for temperature 94.4. Her blood pressure is currently stable, heart rate is stable. Yesterday we resumed Plavix as this was cleared by general surgery with no plan for immediate surge ry. Blood pressure 134/76, heart rate 76, pulse ox 95% on 2 L, 86% on room air. Repeat blood work has not reported at the time of this dictation. Limited echocardiogram reveals EF 40 to 45%, mild to moderate mitral regurgitation, moderate tricuspid regurgitation. 10/18/2023 Patient examined this morning. Patient is sitting up in the chair. Patient denies chest pain or pressure. She continues to report shortness of breath. She is maintained on supplemental oxygen. She is receiving IV diuretics twice a day per nephrology. She continues to have lower extremity edema. Vital signs are stable. PHYSICAL EXAM: VITAL SIGNS: Reviewed. GENERAL: Well-developed in no acute distress. NECK: Supple. No JVD or thyromegaly LUNGS: Respirations even and unlabored. Lungs essentially clear to auscultation bilaterally. HEART: Regular rate and rhythm. S1 and S2 heard. Systolic murmur noted. EXTREMITIES: Normal range of motion. No clubbing or cyanosis. Peripheral pulses intact. 2-3+ bilateral lower extremity edema ASSESSMENT: Bradycardia, asymptomatic, no sign of high degree AV block Acute kidney injury, improving Hyperkalemia, resolved Hypernatremia Metabolic acidosis Sepsis secondary to UTI Rectal prolapse surgery scheduled on 10/13 was canceled Hypotension requiring vasopressor, resolved Acute on chronic heart failure with reduced EF, 40 to 45% Mild to moderate mitral regurgitation and moderate tricuspid regurgitation Coronary artery disease with recent stenting of the proximal RCA, 06/24/2023 History of cardiac arrest Ischemic cardiomyopathy Chronic kidney disease History of renal failure requiring hemodialysis, not currently on hemodialysis Hypertension Hyperlipidemia Diabetes Severe pulmonary hypertension COPD Former nicotine dependence Malleolus fracture Bicytopenia PLAN: Continue telemetry monitoring Continue to hold beta-satnam Continue dual antiplatelet therapy secondary to recent stenting Continue IV diuretics per nephrology Daily weights, accurate intake and output, and monitoring of kidney function General surgery following for possible low anterior resection for rectal prolapse in the future Further recommendations pending patient course Nurse practitioner note has been reviewed by physician. Signing provider agrees with the documented findings, assessment, and plan of care documented by INSURANCE SALES SPECIALIST as a scribe. Objective - Vital Signs Vital signs: Vital Signs Temp 97.4 F L 10/18/23 07:27 Pulse 74 10/18/23 07:27 Resp 18 10/18/23 07:27 BP 153/92 10/18/23 07:27 Pulse Ox 93 L 10/18/23 09:19 FiO2 Intake & Output 10/17/23 10/18/23 10/18/23 18:59 06:59 18:59 Intake Total 836 Output Total 1050 1050 Balance -214 -1050 Weight 74.5 kg Intake: Oral 836 Output: Urine 1050 1050 Uretheral (Hays) 1050 Other: Voiding Method Indwelling Catheter Indwelling Catheter Indwelling Catheter # Bowel Movements 1 - Labs CBC & Chem 7: 10/18/23 06:47 10/18/23 06:47 Labs: Abnormal Lab Results - Last 24 Hours (Table) 10/17/23 10/17/23 10/18/23 Range/Units 16:39 20:58 06:47 RBC (4.10-5.20) X 10*6/uL Hgb (12.0-15.0) g/dL Hct (37.2-46.3) % MCV (80.0-97.0) FL MCHC (32.0-37.0) g/dL RDW (11.5-14.5) % Plt Count (140-440) X 10*3/uL Lymphocytes # (0.90-5.00) X 10*3/uL Sodium 148 H (135-145) mmol/L BUN 59.5 H (9.0-27.0) mg/dL Creatinine 2.2 H (0.6-1.5) mg/dL Est GFR (CKD-EPI) 25 L (>=60) BUN/Creatinine Ratio 27.05 H (12.00-20.00) Ratio POC Glucose (mg/dL) 136 H 133 H (70-110) mg/dL Calcium 7.5 L (8.7-10.3) mg/dL Alkaline Phosphatase 161 H (41-126) U/L Albumin 2.8 L (3.8-4.9) g/dL Globulin 3.6 H (1.6-3.3) g/dL Albumin/Globulin Ratio 0.78 L (1.60-3.17) Ratio 10/18/23 10/18/23 Range/Units 06:47 11:40 RBC 2.66 L (4.10-5.20) X 10*6/uL Hgb 7.6 L (12.0-15.0) g/dL Hct 26.5 L (37.2-46.3) % MCV 99.6 H (80.0-97.0) FL MCHC 28.7 L (32.0-37.0) g/dL RDW 19.4 H (11.5-14.5) % Plt Count 100 L (140-440) X 10*3/uL Lymphocytes # 0.67 L (0.90-5.00) X 10*3/uL Sodium (135-145) mmol/L BUN (9.0-27.0) mg/dL Creatinine (0.6-1.5) mg/dL Est GFR (CKD-EPI) (>=60) BUN/Creatinine Ratio (12.00-20.00) Ratio POC Glucose (mg/dL) 128 H (70-110) mg/dL Calcium (8.7-10.3) mg/dL Alkaline Phosphatase (41-126) U/L Albumin (3.8-4.9) g/dL Globulin (1.6-3.3) g/dL Albumin/Globulin Ratio (1.60-3.17) Ratio
--- NOTE | 2023-10-18 12:17 | P.PN ---
Subjective Patient is seen in follow-up for acute kidney injury on chronic kidney disease. Denies chest pain or shortness of breath. Has Hays catheter. Nonoliguric. On IV Lasix. Renal function stable. No active complaints. Sodium level 148 today. Vital signs are stable. General: No acute distress. HEENT: Head exam is unremarkable. On nasal cannula. LUNGS: No audible rhonchi or wheezes. HEART: Rate and Rhythm are regular. ABDOMEN: Nontender. EXTREMITITES: 2+ edema. Objective - Vital Signs Vital signs: Vital Signs Temp 97.4 F L 10/18/23 07:27 Pulse 74 10/18/23 07:27 Resp 18 10/18/23 07:27 BP 153/92 10/18/23 07:27 Pulse Ox 93 L 10/18/23 09:19 FiO2 Intake & Output 10/17/23 10/18/23 10/18/23 18:59 06:59 18:59 Intake Total 836 Output Total 1050 1050 Balance -214 -1050 Weight 74.5 kg Intake: Oral 836 Output: Urine 1050 1050 Uretheral (Hays) 1050 Other: Voiding Method Indwelling Catheter Indwelling Catheter Indwelling Catheter # Bowel Movements 1 - Labs CBC & Chem 7: 10/18/23 06:47 10/18/23 06:47 Labs: Abnormal Lab Results - Last 24 Hours (Table) 10/17/23 10/17/23 10/18/23 Range/Units 16:39 20:58 06:47 RBC (4.10-5.20) X 10*6/uL Hgb (12.0-15.0) g/dL Hct (37.2-46.3) % MCV (80.0-97.0) FL MCHC (32.0-37.0) g/dL RDW (11.5-14.5) % Plt Count (140-440) X 10*3/uL Lymphocytes # (0.90-5.00) X 10*3/uL Sodium 148 H (135-145) mmol/L BUN 59.5 H (9.0-27.0) mg/dL Creatinine 2.2 H (0.6-1.5) mg/dL Est GFR (CKD-EPI) 25 L (>=60) BUN/Creatinine Ratio 27.05 H (12.00-20.00) Ratio POC Glucose (mg/dL) 136 H 133 H (70-110) mg/dL Calcium 7.5 L (8.7-10.3) mg/dL Alkaline Phosphatase 161 H (41-126) U/L Albumin 2.8 L (3.8-4.9) g/dL Globulin 3.6 H (1.6-3.3) g/dL Albumin/Globulin Ratio 0.78 L (1.60-3.17) Ratio 10/18/23 10/18/23 Range/Units 06:47 11:40 RBC 2.66 L (4.10-5.20) X 10*6/uL Hgb 7.6 L (12.0-15.0) g/dL Hct 26.5 L (37.2-46.3) % MCV 99.6 H (80.0-97.0) FL MCHC 28.7 L (32.0-37.0) g/dL RDW 19.4 H (11.5-14.5) % Plt Count 100 L (140-440) X 10*3/uL Lymphocytes # 0.67 L (0.90-5.00) X 10*3/uL Sodium (135-145) mmol/L BUN (9.0-27.0) mg/dL Creatinine (0.6-1.5) mg/dL Est GFR (CKD-EPI) (>=60) BUN/Creatinine Ratio (12.00-20.00) Ratio POC Glucose (mg/dL) 128 H (70-110) mg/dL Calcium (8.7-10.3) mg/dL Alkaline Phosphatase (41-126) U/L Albumin (3.8-4.9) g/dL Globulin (1.6-3.3) g/dL Albumin/Globulin Ratio (1.60-3.17) Ratio Assessment and Plan Plan: Assessment: 1. Acute kidney injury secondary to ATN secondary to severe sepsis. Now also component of cardiorenal syndrome. Renal function improving with diuresis. Creatinine 2.2 today. 2. Severe sepsis due to UTI on antibiotics. 3. Metabolic acidosis secondary to acute kidney injury improved with bicarb drip. On oral bicarb. Better. 4. Hyperkalemia secondary to acute kidney injury and metabolic acidosis. Resolved. 5. History of cardiac arrest. 6. Chronic kidney disease stage IIIb with baseline creatinine 1.5-1.8. Patient required renal replacement therapy in the past. 7. Rectal prolapse. Surgery following. 8. Chronic kidney disease mineral bone disease with hypocalcemia and hyperphosphatemia. On PhosLo. Better. 9. Diabetes mellitus. 10. Anemia of chronic kidney disease maintained on Aranesp. 11. Cardiomyopathy ejection fraction of 40 to 45% with mild to moderate mitral regurgitation and moderate tricuspid regurgitation. 12. Hypernatremia from lack of oral water intake and free water diuresis. Plan: Maintain IV Lasix. Stopped SGLT2 inhibitor due to acute infection/UTI. Avoid nephrotoxins. Continue to monitor renal function and urine output. Start D5W at 60 cc an hour. Stop bicarb.
[2023-10-18] MEDS: DEXTROSE 5% IN WATER 1,000 ML IV SCH (12:35)
--- NOTE | 2023-10-18 13:05 | P.PN ---
Subjective Progress Note Date: 10/18/23 Patient is a 58-year-old female with a past medical history of hypertension, hyperlipidemia, diabetes type 2, CKD stage III with baseline creatinine around 1.8, ischemic cardiomyopathy with improved EF, GBS, history of hemodialysis and prior history of smoking was sent from [facility] due to worsening renal function with elevated creatinine level.. Patient was recently discharged from the hospital on 09/27/2023. Admitted on 08/19/2023. Patient was status post cardiac arrest and respiratory failure requi ring intubation. Patient was treated for acute CHF and hypoxic respiratory failure, ischemic cardiomyopathy ejection fraction improved. Patient was discharged to [facility]. Patient also has right heel stage III pressure ulcer and subacute fracture of the medial and lateral malleolus, no plans for immediate surgical intervention as per orthopedic surgery. She was also treated for E. coli urinary tract infection. Patient was having episodes of vomiting couple days ago and also had diarrhea yesterday. Continue to have nausea and decreased oral intake. Otherwise denies any complaints of abdominal pain. No complaints of diarrhea at today. Patient was recently discharged home with antibiotics, doxycycline on 09/27/2023. Denied any fever or chills. No chest pain or shortness of breath. No cough or sputum production. Chest x-ray showed correlate for mild CHF. Left lower lobe consolidation could be on the basis of pneumonia or chronic atelectasis. Stable from prior exam. EKG showed sinus bradycardia with heart rate 55. Laboratory data showed hemoglobin 8.0, WBC 4.3 and platelets 125 Sodium 134 potassium 6.0 chloride 109 bicarb is 15 BUN 130 and creatinine 3.72 and blood sugar 100 lactic acid 0.6 and calcium 6.3. Magnesium 2.4 alk phos 201 TSH 8.1 and free T40.94 0.97 Urinalysis showed turbid with large blood large leukocyte esterase and elevated RBCs and WBCs. Influenza A B and RSV COVID-19 PCR not detected. Patient was hypotensive with blood pressure 85/59 with pulse of 59 respirations 17 and pulse ox 100% on 2 L oxygen on admission. 10/10/2023 Patient is in the MICU. Awake alert and oriented. No complaints of chest pain or abdominal pain. No nausea or vomiting. Patient's blood pressure is low and remains on pressor support. Also on bicarb drip. Patient is able to make urine. Chest x-ray showed NG tube in good position. Renal ultrasound showed suboptimal study but no gross hydronephrosis identified bilaterally Laboratory data showed WBC 6.8 hemoglobin 7.8 and platelets 128, sodium 138 potassium 5.7 chloride 112 bicarb is 14 BUN 123 and creatinine 3.9 and blood sugar 137 A1c 6.4 calcium 6.1 and procalcitonin level is 0.32 patient remains on antibiotics of ceftriaxone. 10/11/2023 Patient is in the MICU. Awake alert and oriented. Currently on 2 L oxygen via nasal cannula. Otherwise patient is being continued on bicarb drip. Was also given dose of IV Lasix per nephrology for possible pulm overload. Patient does have urine output which is improving. Otherwise patient is being continued on ceftriaxone. Urine culture and blood cultures are pending. Laboratory data showed WBC 4.7 hemoglobin 8.0 and platelets 97 sodium 136 potassium 5.1 chloride 108 bicarb is 17 BUN 119 and creatinine 3.89 and blood sugar 150 and calcium 5.9 and vitamin D level is low at 19.4. Nephrology and pulmonary is on board. 10/12/2023 Patient is in the medical floor. Awake alert and oriented. No complaints of chest pain or shortness of breath. Patient does have good urine output. No nausea vomiting. Tolerating oral diet. Laboratory data showed sodium 138 potassium 4.85 chloride 106 bicarb is 23 BUN 119 and creatinine 3.58 and blood sugar 135 calcium 5.6 and phosphorus 9.3 and albumin 2.5. Patient is being continued on ceftriaxone. Urine culture showed E. coli and Proteus. Patient is also on vitamin D supplementation. 10/13/2023 Patient is resting in the bed. Awake alert and oriented. No complaints of chest pain or shortness of breath. No nausea or vomiting. Patient does have good urine output. Previous laboratory data reviewed. Patient is tolerating oral diet. Scheduled for rectal prolapse. Tomorrow. Continue with vitamin D supplementation and calcium. Albumin 2.5. Nephrology, pulmonary and general surgery is on board. Follow-up CBC and BMP tomorrow. Current medications reviewed. 10/14/2023 Patient is evaluated today on the medical floor sitting up in bed she is awake alert and oriented has family at the bedside. General surgery is following for the rectal prolapse recommending to hold off on surgery at this time due to current clinical condition. Patient is tolerating oral intake at this time. Continues on IV Ceftin at this time for urine culture showing E. coli and Proteus we would ask ID to evaluate for antibiotic coverage for these. Blood work today reveals a white count of 3.1, hemoglobin 8.1, platelet count of 69, sodium 144, potassium 3.2, BUN 95, creatinine 3.09. Calcium 5.9, phosphorus 7.7. Hemodynamically she is stable. Temp today 97.5, 96.7. 10/15/2023 Patient is evaluated in follow-up of medical floor. Alert and oriented x 3 she is tolerating some diet continues to report nausea. Patient is being followed by general surgery with plans for rectal prolapse repair sometime next week. She has been off the Coco hugger now for 24 hours and holding temps 97.4 oral. She is requiring 2 L of oxygen. Cardiology was consulted secondary to episodes of bradycardia. Patient will have a repeat echocardiogram completed. ID has revealed the patient recommending to continue IV ceftriaxone. Her labs are improving white blood cell count 5.0, hemoglobin 8.0, platelet count of 78, BUN of 88, creatinine of 2.64, sodium 142. Calcium level 6.6 has improved. 10/16/2023 Patient is evaluated in follow-up on the stepdown unit she can be transitioned to medical surgical floor. She is currently alert x 3 she is tolerating diet and reporting improvement in her nausea today. Rectal surgery prolapse has been on hold and per cardiology she is a high risk for surgical intervention of any kind. Patient's limited echocardiogram comes back showing an EF of 40 to 45% her ejection fraction back in July of this year was normal. Cardiology has started this patient on Farxiga and have resumed the Plavix. She has been on and off the Coco hugger at this time. We did consult PT for evaluation but we are unsure what her weightbearing status is at this time will likely need to reevaluate orthopedics for evaluation. She continues on IV ceftriaxone. Labs today with a white blood cell count of 6.6, hemoglobin 8.2, platelet count of 76, sodium 143, BUN of 77, creatinine 1.36, glucose of 140s. Calcium 6.9. 10/16. Patient seen and examined. States she feels better. Still complaining of lethargy and weakness 10/25. Patient seen and examined. Blood work done this morning showed WBC 5.59, hemoglobin 10.6, sodium 140, potassium 4.1, BUN 59.5, creatinine 2.2 REVIEW OF SYSTEMS: CONSTITUTIONAL: No fever, no malaise,. CARDIOVASCULAR: No chest pain, no palpitations, no syncope. PULMONARY: No shortness of breath, no cough, GASTROINTESTINAL: No diarrhea, no nausea, no vomiting, no abdominal pain. NEUROLOGICAL: No headaches, no weakness, PHYSICAL EXAMINATION: GENERAL: The patient is alert and oriented x3, ill looking HEENT: Pupils are round and equally reacting to light. EOMI. No scleral icterus. No conjunctival pallor. Normocephalic, atraumatic. No pharyngeal erythema. No thyromegaly. CARDIOVASCULAR: S1 and S2 present. No murmurs, rubs, or gallops. PULMONARY: Chest is clear to auscultation, no wheezing or crackles. ABDOMEN: Soft, nontender, nondistended, normoactive bowel sounds. No palpable organomegaly. MUSCULOSKELETAL: No joint swelling or deformity. EXTREMITIES: No cyanosis, clubbing, or pedal edema. NEUROLOGICAL: Gross neurological examination did not reveal any focal deficits. SKIN: No rashes. Assessment and plan Acute kidney injury likely due to ATN due to hypotension and possible infection. Creatinine 3.72 on admission baseline creatinine around 1.8 Hyperkalemia due to MARYLOU. Improving Non-anion gap metabolic acidosis secondary to above Rectal prolapse CKD stage III stage IIIb due to nephrosclerosis/nephropathy and cardiorenal. Hypotension. Stable. E. coli and Proteus Mirabella's urinary tract infection Possible pneumonia with left lower lobe consolidation on chest x-ray. Vitamin D deficiency Hypertension. Patient is currently hypotensive. Recent admission due Asystole/cardiopulmonary rest and hypoxic respiratory failure. Discharged to [facility] on 09/27/2023. Anemia of chronic disease and iron deficiency anemia, thrombocytopenia Coronary artery disease with history of stent placement to [facility] and May 2023. Chronic CHF with systolic dysfunction Ischemic cardiomyopathy with improved EF Subacute fracture of the medial and lateral malleolus from previous admission. Right heel stage III pressure injury continue local wound care with aquacel ID following. Hyperlipidemia Type 2 diabetes mellitus uncontrolled hgb a1c 12.1 Severe pulmonary hypertension COPD without any acute exacerbation Peripheral neuropathy GI prophylaxis with PPI DVT prophylaxis heparin SQ every 12 Full Code Plan Monitor vital sign -monitor CBC Monitor CMP Continue aranesp. Strict I's and O's, daily weights, continue IV Lasix 40 mg twice a day continue on IV ceftriaxone Continue Plavix Wound care consultation for the right heel. Continue accuchecks ACHS sliding scale insulin. ID following cardiology following Orthopedic consult, recommend WBAT in Fracture boot of RLE Labs and medication were reviewed.. Continue same treatment. Continue with symptomatic treatment. Resume home medication. Monitor labs and vitals. DVT and GI prophylaxis. Further recommendations as per clinical course of the patient Dictation was produced using [employer] ([employer]) dictation software. please excuse any grammatical, word or spelling errors. Objective - Vital Signs Vital signs: Vital Signs Temp 97.4 F L 10/18/23 07:27 Pulse 74 10/18/23 07:27 Resp 18 10/18/23 07:27 BP 153/92 10/18/23 07:27 Pulse Ox 93 L 10/18/23 09:19 FiO2 Intake & Output 10/17/23 10/18/23 10/18/23 18:59 06:59 18:59 Intake Total 836 Output Total 1050 1050 Balance -214 -1050 Weight 74.5 kg Intake: Oral 836 Output: Urine 1050 1050 Uretheral (Hays) 1050 Other: Voiding Method Indwelling Catheter Indwelling Catheter Indwelling Catheter # Bowel Movements 1 - Labs CBC & Chem 7: 10/18/23 06:47 10/18/23 06:47 Labs: Abnormal Lab Results - Last 24 Hours (Table) 10/17/23 10/17/23 10/18/23 Range/Units 16:39 20:58 06:47 RBC (4.10-5.20) X 10*6/uL Hgb (12.0-15.0) g/dL Hct (37.2-46.3) % MCV (80.0-97.0) FL MCHC (32.0-37.0) g/dL RDW (11.5-14.5) % Plt Count (140-440) X 10*3/uL Lymphocytes # (0.90-5.00) X 10*3/uL Sodium 148 H (135-145) mmol/L BUN 59.5 H (9.0-27.0) mg/dL Creatinine 2.2 H (0.6-1.5) mg/dL Est GFR (CKD-EPI) 25 L (>=60) BUN/Creatinine Ratio 27.05 H (12.00-20.00) Ratio POC Glucose (mg/dL) 136 H 133 H (70-110) mg/dL Calcium 7.5 L (8.7-10.3) mg/dL Alkaline Phosphatase 161 H (41-126) U/L Albumin 2.8 L (3.8-4.9) g/dL Globulin 3.6 H (1.6-3.3) g/dL Albumin/Globulin Ratio 0.78 L (1.60-3.17) Ratio 10/18/23 10/18/23 Range/Units 06:47 11:40 RBC 2.66 L (4.10-5.20) X 10*6/uL Hgb 7.6 L (12.0-15.0) g/dL Hct 26.5 L (37.2-46.3) % MCV 99.6 H (80.0-97.0) FL MCHC 28.7 L (32.0-37.0) g/dL RDW 19.4 H (11.5-14.5) % Plt Count 100 L (140-440) X 10*3/uL Lymphocytes # 0.67 L (0.90-5.00) X 10*3/uL Sodium (135-145) mmol/L BUN (9.0-27.0) mg/dL Creatinine (0.6-1.5) mg/dL Est GFR (CKD-EPI) (>=60) BUN/Creatinine Ratio (12.00-20.00) Ratio POC Glucose (mg/dL) 128 H (70-110) mg/dL Calcium (8.7-10.3) mg/dL Alkaline Phosphatase (41-126) U/L Albumin (3.8-4.9) g/dL Globulin (1.6-3.3) g/dL Albumin/Globulin Ratio (1.60-3.17) Ratio
[2023-10-18 16:51] LABS: Glucose,Whole Blood 129 mg/dL (70-110)
--- NOTE | 2023-10-18 19:17 | P.PN ---
Subjective Progress Note Date: 10/18/23 Principal diagnosis: Rectal prolapse Patient doing better today. Says her prolapse is not really out at this time. She has had bowel function. Tolerating diet. No abdominal or rectal pain. Objective - Vital Signs Vital signs: Vital Signs Temp 97.1 F L 10/18/23 14:00 Pulse 79 10/18/23 14:00 Resp 20 10/18/23 14:00 BP 164/95 10/18/23 14:00 Pulse Ox 93 L 10/18/23 09:19 FiO2 Intake & Output 10/18/23 10/18/23 10/19/23 06:59 18:59 06:59 Output Total 1050 1100 Balance -1050 -1100 Output: Urine 1050 1100 Uretheral ([place]ays) 1050 Other: Voiding Method Indwelling Catheter Indwelling Catheter # Bowel Movements 1 - Exam Abdomen: Soft, nondistended, abdominal wall edema present, nontender Rectal: Small 1 cm degree of rectal prolapse able to be reduced without difficulty. Decreased sphincter tone - Labs CBC & Chem 7: 10/18/23 06:47 10/18/23 06:47 Labs: Abnormal Lab Results - Last 24 Hours (Table) 10/17/23 10/18/23 10/18/23 Range/Units 20:58 06:47 06:47 RBC 2.66 L (4.10-5.20) X 10*6/uL Hgb 7.6 L (12.0-15.0) g/dL Hct 26.5 L (37.2-46.3) % MCV 99.6 H (80.0-97.0) FL MCHC 28.7 L (32.0-37.0) g/dL RDW 19.4 H (11.5-14.5) % Plt Count 100 L (140-440) X 10*3/uL Lymphocytes # 0.67 L (0.90-5.00) X 10*3/uL Sodium 148 H (135-145) mmol/L BUN 59.5 H (9.0-27.0) mg/dL Creatinine 2.2 H (0.6-1.5) mg/dL Est GFR (CKD-EPI) 25 L (>=60) BUN/Creatinine Ratio 27.05 H (12.00-20.00) Ratio POC Glucose (mg/dL) 133 H (70-110) mg/dL Calcium 7.5 L (8.7-10.3) mg/dL Alkaline Phosphatase 161 H (41-126) U/L Albumin 2.8 L (3.8-4.9) g/dL Globulin 3.6 H (1.6-3.3) g/dL Albumin/Globulin Ratio 0.78 L (1.60-3.17) Ratio 10/18/23 10/18/23 Range/Units 11:40 16:50 RBC (4.10-5.20) X 10*6/uL Hgb (12.0-15.0) g/dL Hct (37.2-46.3) % MCV (80.0-97.0) FL MCHC (32.0-37.0) g/dL RDW (11.5-14.5) % Plt Count (140-440) X 10*3/uL Lymphocytes # (0.90-5.00) X 10*3/uL Sodium (135-145) mmol/L BUN (9.0-27.0) mg/dL Creatinine (0.6-1.5) mg/dL Est GFR (CKD-EPI) (>=60) BUN/Creatinine Ratio (12.00-20.00) Ratio POC Glucose (mg/dL) 128 H 129 H (70-110) mg/dL Calcium (8.7-10.3) mg/dL Alkaline Phosphatase (41-126) U/L Albumin (3.8-4.9) g/dL Globulin (1.6-3.3) g/dL Albumin/Globulin Ratio (1.60-3.17) Ratio Assessment and Plan (1) Rectal prolapse Narrative/Plan: 58-year-old female with recurrent rectal prolapse. Continue appropriate stool regimen. Continue diet. Patient is scheduled for possible low anterior resection on Saturday. Will follow with consultants to see if we can gauge better her perioperative risk. Current Visit: Yes Status: Acute Code(s): K62.3 - RECTAL PROLAPSE SNOMED Code(s): 17651110
[2023-10-18 20:50] LABS: Glucose,Whole Blood 150 mg/dL (70-110)
[2023-10-19 06:02] LABS: Glucose,Whole Blood 120 mg/dL (70-110)
--- NOTE | 2023-10-19 10:36 | P.PN ---
Progress Note - Text Progress Note Date: 10/19/23 CHIEF COMPLAINT: Worsening renal function UTI HISTORY OF PRESENT ILLNESS: NAEO PHYSICAL EXAM: VITAL SIGNS: Reviewed. GENERAL: no acute distress. ABDOMEN: Soft. Nondistended. Nontender. ASSESSMENT: 1. Rectal prolapse 2. Acute on chronic renal failure 3. UTI with hypotension 4. History of coronary disease with cardiac stent placed in May 2023 5. Recent cardiopulmonary arrest on last hospitalization 6. Hyperphosphatemia PLAN: -Recommend lower anterior resection for rectal prolapse when patient is medically stable -Patient is high risk surgical candidate as noted per cardiology
[2023-10-19 11:51] LABS: Glucose,Whole Blood 173 mg/dL (70-110)
--- NOTE | 2023-10-19 12:33 | P.PN ---
Subjective Patient is seen for follow-up for acute kidney injury. currently maintained on IV Lasix. Renal function is stable with serum creatinine at about 2.2 mg/dL. no significant complaints today. Objective - Vital Signs Vital signs: Vital Signs Temp 97.3 F L 10/19/23 07:30 Pulse 69 10/19/23 07:30 Resp 18 10/19/23 07:30 BP 153/83 10/19/23 07:30 Pulse Ox 90 L 10/19/23 07:30 FiO2 Intake & Output 10/18/23 10/19/23 10/19/23 18:59 06:59 18:59 Output Total 1100 1050 Balance -1100 -1050 Output: Urine 1100 1050 Other: Voiding Method Indwelling Catheter Indwelling Catheter Indwelling Catheter # Bowel Movements 1 - Exam patient is awake. She does recognize me. Answers questions appropriately. Examination of the heart S1 and S2 Examination of the lungs bilateral breath sounds are heard Abdomen is soft nontender Examination of lower extremities shows edema 1+ bilaterally, right leg in brace [employer] exam shows patient is moving all 4 extremities. - Labs CBC & Chem 7: 10/18/23 06:47 10/18/23 06:47 Labs: Abnormal Lab Results - Last 24 Hours (Table) 10/18/23 10/18/23 10/19/23 Range/Units 16:50 20:47 05:59 POC Glucose (mg/dL) 129 H 150 H 120 H (70-110) mg/dL 10/19/23 Range/Units 11:49 POC Glucose (mg/dL) 173 H (70-110) mg/dL Assessment and Plan Assessment: 1. Acute kidney injury secondary to ATN secondary to severe sepsis. Now also component of cardiorenal syndrome. Renal function improving with diuresis. Creatinine stable at about 2.2 mg/dL. 2. Severe sepsis due to UTI on antibiotics. 3. Metabolic acidosis secondary to acute kidney injury improved with bicarb drip. On oral bicarb. Better. 4. Hyperkalemia secondary to acute kidney injury and metabolic acidosis. Resolved. 5. History of cardiac arrest. 6. Chronic kidney disease stage IIIb with baseline creatinine 1.5-1.8. Patient required renal replacement therapy in the past. 7. Rectal prolapse. Surgery following. 8. Chronic kidney disease mineral bone disease with hypocalcemia and hyperphosphatemia. On PhosLo. Better. 9. Diabetes mellitus. 10. Anemia of chronic kidney disease maintained on Aranesp. 11. Cardiomyopathy ejection fraction of 40 to 45% with mild to moderate mitral regurgitation and moderate tricuspid regurgitation. 12. Hypernatremia from lack of oral water intake and free water diuresis. Plan: continue with D5W. possibly discontinue based on labs from today. Labs are pending from today. continue with Lasix.
--- NOTE | 2023-10-19 12:47 | P.PN ---
Subjective Progress Note Date: 10/19/23 This is a 58-year-old female patient of Dr. Jose with a past medical history significant for coronary artery disease with previous stenting, cardiomyopathy, hypertension, hyperlipidemia, diabetes, severe pulmonary hypertension, COPD, and chronic kidney disease previously on hemodialysis. We have been asked to see the patient in consultation for bradycardic episodes and extensive cardiac history. Patient was recently discharged from the hospital on 09/26 [facility] She had previous hospitalization for cardiopulmonary arrest, anoxic encephalopathy. She has history of a stent to the RCA on 05/2023. Patient was brought back into the hospital due to abnormal lab work found to have acute kidney injury with creatinine of 3.72. Along with hyperkalemia, sepsis with possible UTI, fracture of the malleolus, rectal prolapse and scheduled for repair of the rectal prolapse today. Patient denies having any chest pain chest pressure, no palpitations, no dizziness. She previously was h aving some nausea and vomiting but none at this time. She denies any blood in her urine or stools. No cough or fever. Patient has been on on IV sodium bicarb currently on oral as well as received daily dosed IV Lasix. Patient required norepinephrine at the time of admission back on 10/08. Patient's beta- satnam and blood pressure medications have not been resumed. Plavix is also on hold. Patient had episodes of heart rate at 40 on both 10/12 and 10/13. EKG reveals sinus mechanism Chest xray performed on 10/11 revealed no overt failure. Atelectasis favored over pneumonia. Left lower lobe retrocardiac consolidation represents atelectasis or infiltrate. Laboratory data: WBC 4.7, hemoglobin 8, platelet count 97. BUN 119, creatinine 3.58. Calcium 5.6. Phosphorus 9.3. Magnesium 2.1. Albumin 2.5. Procalcitonin 0.32. TSH 8.16. Urinalysis with leukoesterase large, RBCs greater than 182, WBC greater than 182. Squamous cells 19. Current home cardiac medications include amlodipine 5 mg daily, aspirin 81 mg daily, Bumex 1 mg daily, Plavix 75 mg daily, Farxiga 5 mg daily, hydralazine 25 mg 3 times daily, Imdur 30 mg daily, Toprol-XL 12.5 mg daily, Aldactone 12.5 mg daily. Most recent echocardiogram obtained in 08/20/2023 reveals LVH with preserved systolic function. Increased right ventricular systolic pressures. Cardiac catheterization history: 06/24/2023 with stenting of the proximal RCA 10/19/2023 Was seen and examined resting comfortably in reclining chair. She denies any chest pain or pressure. She feels her breathing is somewhat better especially with oxygen on. Continues on IV Lasix 40 mg twice daily per nephrology. Continues to complain of lower extremity edema. She has had recurrent epistaxis. No labs are available for today. Objective - Vital Signs Vital signs: Vital Signs Temp 97.3 F L 10/19/23 07:30 Pulse 69 10/19/23 07:30 Resp 18 10/19/23 07:30 BP 153/83 10/19/23 07:30 Pulse Ox 90 L 10/19/23 07:30 FiO2 Intake & Output 10/18/23 10/19/23 10/19/23 18:59 06:59 18:59 Output Total 1100 1050 Balance -1100 -1050 Output: Urine 1100 1050 Other: Voiding Method Indwelling Catheter Indwelling Catheter Indwelling Catheter # Bowel Movements 1 - Exam VITAL SIGNS: Reviewed. GENERAL: Well-developed in no acute distress. NECK: Supple. No JVD or thyromegaly LUNGS: Respirations even and unlabored. Lungs essentially clear to auscultation bilaterally. HEART: Regular rate and rhythm. S1 and S2 heard. Systolic murmur noted. EXTREMITIES: Normal range of motion. No clubbing or cyanosis. Peripheral pulses intact. 2-3+ bilateral lower extremity edema - Labs CBC & Chem 7: 10/18/23 06:47 10/18/23 06:47 Labs: Abnormal Lab Results - Last 24 Hours (Table) 10/18/23 10/18/23 10/19/23 Range/Units 16:50 20:47 05:59 POC Glucose (mg/dL) 129 H 150 H 120 H (70-110) mg/dL 10/19/23 Range/Units 11:49 POC Glucose (mg/dL) 173 H (70-110) mg/dL Assessment and Plan Assessment: Bradycardia, asymptomatic, no sign of high degree AV block Acute kidney injury, improving Hyperkalemia, resolved Hypernatremia Metabolic acidosis Sepsis secondary to UTI Rectal prolapse surgery scheduled on 10/13 was canceled Hypotension requiring vasopressor, resolved Acute on chronic heart failure with reduced EF, 40 to 45% Mild to moderate mitral regurgitation and moderate tricuspid regurgitation Coronary artery disease with recent stenting of the proximal RCA, 06/24/2023 History of cardiac arrest Ischemic cardiomyopathy Chronic kidney disease History of renal failure requiring hemodialysis, not currently on hemodialysis Hypertension Hyperlipidemia Diabetes Severe pulmonary hypertension COPD Former nicotine dependence Malleolus fracture Bicytopenia Plan: From Cardiology's perspective continue diuretics per nephrology. Continue to hold beta-blockers at this time. Will obtain CBC and BMP today. From our standpoint patient remains high risk for surgery and we recommend postponing at this time. ACTUARIAL INTERN note has been reviewed, I agree with a documented findings and plan of care. Patient was seen and examined.
[2023-10-19 12:54] LABS: African American GFR (CKD) 30 (>60 ml/min/1.73 sqM); Anion Gap 4 mmol/L; Blood Urea Nitrogen 55 mg/dL (7-17); Calcium 7.5 mg/dL (8.4-10.2); Carbon Dioxide 32 mmol/L (22-30); Chloride 103 mmol/L (98-107); Glucose 130 mg/dL (74-99); Non-African American GFR(CKD) 26 (>60 ml/min/1.73 sqM); Potassium 3.9 mmol/L (3.5-5.1); Sodium 139 mmol/L (137-145)
[2023-10-19 13:08] LABS: Anisocytosis Slight; HCT 27.5 % (34.0-46.0); Hypochromasia Marked; MCH 28.9 pg (25.0-35.0); MCHC 29.1 g/dL (31.0-37.0); MCV 99.2 fL (80.0-100.0); Macrocytosis Slight; Mean Platelet Volume 10.2; Poikilocytosis Slight; RBC 2.78 m/uL (3.80-5.40); RDW 17.9 % (11.5-15.5)
[2023-10-19 13:27] LABS: Platelet Count 133 k/uL (150-450)
--- NOTE | 2023-10-19 15:22 | P.PN ---
Subjective Progress Note Date: 10/18/23 Principal diagnosis: Reason for follow-up is resistant urinary tract infection Patient is a 55-year-old female with a past medical history significant for diabetes mellitus hypertension hyperlipidemia renal disease requiring dialysis at 1 point also with the right heel diabetic foot ulcer patient has been brought to the hospital concerning for worsening of her kidney function also noticed to be hypothermic positive UA concerning for symptomatic heeltap infection urine culture finalized with resistant E. coli and Proteus. On today's evaluation that is 10/18/2023,the patient denies any fever or any chills, patient is breathing comfortably on 2 L current oxygen, the patient denies chest pain shortness of breath and occasional cough, patient denies abdominal pain, no nausea vomiting or diarrhea. Patient white count is 5.510, creatinine is 2.2 Objective - Vital Signs Vital signs: Vital Signs Temp 97.4 F L 10/18/23 07:27 Pulse 74 10/18/23 07:27 Resp 18 10/18/23 07:27 BP 153/92 10/18/23 07:27 Pulse Ox 93 L 10/18/23 09:19 FiO2 Intake & Output 10/17/23 10/18/23 10/18/23 18:59 06:59 18:59 Intake Total 836 Output Total 1050 1050 Balance -214 -1050 Weight 74.5 kg Intake: Oral 836 Output: Urine 1050 1050 Uretheral (Hays) 1050 Other: Voiding Method Indwelling Catheter Indwelling Catheter Indwelling Catheter # Bowel Movements 1 - Exam GENERAL DESCRIPTION: Middle-aged female lying in bed in no distress RESPIRATORY SYSTEM: Unlabored breathing , decreased breath sounds at bases HEART: S1 S2 regular rate and rhythm , ABDOMEN: Soft , no tenderness EXTREMITIES: Right heel wound is currently dressed - Labs CBC & Chem 7: 10/19/23 11:46 10/19/23 11:46 Labs: Abnormal Lab Results - Last 24 Hours (Table) 10/17/23 10/17/23 10/18/23 Range/Units 16:39 20:58 06:47 RBC (4.10-5.20) X 10*6/uL Hgb (12.0-15.0) g/dL Hct (37.2-46.3) % MCV (80.0-97.0) FL MCHC (32.0-37.0) g/dL RDW (11.5-14.5) % Plt Count (140-440) X 10*3/uL Lymphocytes # (0.90-5.00) X 10*3/uL Sodium 148 H (135-145) mmol/L BUN 59.5 H (9.0-27.0) mg/dL Creatinine 2.2 H (0.6-1.5) mg/dL Est GFR (CKD-EPI) 25 L (>=60) BUN/Creatinine Ratio 27.05 H (12.00-20.00) Ratio POC Glucose (mg/dL) 136 H 133 H (70-110) mg/dL Calcium 7.5 L (8.7-10.3) mg/dL Alkaline Phosphatase 161 H (41-126) U/L Albumin 2.8 L (3.8-4.9) g/dL Globulin 3.6 H (1.6-3.3) g/dL Albumin/Globulin Ratio 0.78 L (1.60-3.17) Ratio 10/18/23/ Range/Units 06:47 11:40 RBC 2.66 L (4.10-5.20) X 10*6/uL Hgb 7.6 L (12.0-15.0) g/dL Hct 26.5 L (37.2-46.3) % MCV 99.6 H (80.0-97.0) FL MCHC 28.7 L (32.0-37.0) g/dL RDW 19.4 H (11.5-14.5) % Plt Count 100 L (140-440) X 10*3/uL Lymphocytes # 0.67 L (0.90-5.00) X 10*3/uL Sodium (135-145) mmol/L BUN (9.0-27.0) mg/dL Creatinine (0.6-1.5) mg/dL Est GFR (CKD-EPI) (>=60) BUN/Creatinine Ratio (12.00-20.00) Ratio POC Glucose (mg/dL) 128 H (70-110) mg/dL Calcium (8.7-10.3) mg/dL Alkaline Phosphatase (41-126) U/L Albumin (3.8-4.9) g/dL Globulin (1.6-3.3) g/dL Albumin/Globulin Ratio (1.60-3.17) Ratio Assessment and Plan (1) Pressure ulcer of right heel, stage 3 Current Visit: No Status: Acute Code(s): L89.613 - PRESSURE ULCER OF RIGHT HEEL, STAGE 3 SNOMED Code(s): 31466440285736 (2) Type 2 diabetes mellitus with foot ulcer Current Visit: No Status: Acute Code(s): E11.621 - TYPE 2 DIABETES MELLITUS WITH FOOT ULCER; L97.509 - NON-PRESSURE CHRONIC ULCER OTH PRT UNSP FOOT W UNSP SEVERITY SNOMED Code(s): 882181484 (3) UTI (urinary tract infection) Current Visit: No Status: Acute Code(s): N39.0 - URINARY TRACT INFECTION, SITE NOT SPECIFIED SNOMED Code(s): 29931428 Plan: 1patient presented to hospital with worsening of her kidney function and this patient also have significantly positive with some urinary symptoms of retention requiring Hays catheter placement now with urine growing drug-resistant E. coli as well as Proteus as the patient was significantly hypothermic on admission a component of UTI likely 2--local wound care to the right heel wound with Aquacel silver dressing change every 48 hours and keep the area of the pressure 3-patient did have normalization of her temperature, patient to continue Rocephin 2 g daily and monitor clinical course closely Dictation was produced using [employer] dictation software. please excuse any grammatical, word or spelling errors. Time with Patient: Less than 30
--- NOTE | 2023-10-19 15:23 | P.PN ---
Subjective Progress Note Date: 10/19/23 Principal diagnosis: Reason for follow-up is resistant urinary tract infection Patient is a 55-year-old female with a past medical history significant for diabetes mellitus hypertension hyperlipidemia renal disease requiring dialysis at 1 point also with the right heel diabetic foot ulcer patient has been brought to the hospital concerning for worsening of her kidney function also noticed to be hypothermic positive UA concerning for symptomatic heeltap infection urine culture finalized with resistant E. coli and Proteus. On today's evaluation that is 10/19/2023,the patient remains to be afebrile, patient is on 2 L nasal cannula supplemental oxygen and denies any shortness of breath no chest pain or any worsening cough.Patient denies having any nausea or vomiting, no abdominal pain and no diarrhea has been reported. Patient white count 6.0, creatinine 2.06 blood culture negative Objective - Vital Signs Vital signs: Vital Signs Temp 96.4 F L 10/19/23 13:43 Pulse 69 10/19/23 07:30 Resp 18 10/19/23 07:30 BP 153/83 10/19/23 07:30 Pulse Ox 90 L 10/19/23 07:30 FiO2 Intake & Output 10/18/23 10/19/23 10/19/23 18:59 06:59 18:59 Output Total 1100 1050 Balance -1100 -1050 Output: Urine 1100 1050 Other: Voiding Method Indwelling Catheter Indwelling Catheter Indwelling Catheter # Bowel Movements 1 - Exam GENERAL DESCRIPTION: Middle-aged female lying in bed in no distress RESPIRATORY SYSTEM: Unlabored breathing , decreased breath sounds at bases HEART: S1 S2 regular rate and rhythm , ABDOMEN: Soft , no tenderness EXTREMITIES: Right heel wound is currently dressed - Labs CBC & Chem 7: 10/19/23 11:46 10/19/23 11:46 Labs: Abnormal Lab Results - Last 24 Hours (Table) 10/18/23 10/18/23 10/19/23 Range/Units 16:50 20:47 05:59 RBC (3.80-5.40) m/uL Hgb (11.4-16.0) gm/dL Hct (34.0-46.0) % MCHC (31.0-37.0) g/dL RDW (11.5-15.5) % Plt Count (150-450) k/uL Carbon Dioxide (22-30) mmol/L BUN (7-17) mg/dL Creatinine (0.52-1.04) mg/dL Glucose (74-99) mg/dL POC Glucose (mg/dL) 129 H 150 H 120 H (70-110) mg/dL Calcium (8.4-10.2) mg/dL 10/19/23 10/19/23 10/19/23 Range/Units 11:46 11:46 11:49 RBC 2.78 L (3.80-5.40) m/uL Hgb 8.0 L (11.4-16.0) gm/dL Hct 27.5 L (34.0-46.0) % MCHC 29.1 L (31.0-37.0) g/dL RDW 17.9 H (11.5-15.5) % Plt Count 133 L D (150-450) k/uL Carbon Dioxide 32 H (22-30) mmol/L BUN 55 H (7-17) mg/dL Creatinine 2.06 H (0.52-1.04) mg/dL Glucose 130 H (74-99) mg/dL POC Glucose (mg/dL) 173 H (70-110) mg/dL Calcium 7.5 L (8.4-10.2) mg/dL Assessment and Plan (1) Pressure ulcer of right heel, stage 3 Current Visit: No Status: Acute Code(s): L89.613 - PRESSURE ULCER OF RIGHT HEEL, STAGE 3 SNOMED Code(s): 96734728192393 (2) Type 2 diabetes mellitus with foot ulcer Current Visit: No Status: Acute Code(s): E11.621 - TYPE 2 DIABETES MELLITUS WITH FOOT ULCER; L97.509 - NON-PRESSURE CHRONIC ULCER OTH PRT UNSP FOOT W UNSP SEVERITY SNOMED Code(s): 759046957 (3) UTI (urinary tract infection) Current Visit: No Status: Acute Code(s): N39.0 - URINARY TRACT INFECTION, S ITE NOT SPECIFIED SNOMED Code(s): 87820491 Plan: 1patient presented to hospital with worsening of her kidney function and this patient also have significantly positive with some urinary symptoms of retention requiring Hays catheter placement now with urine growing drug-resistant E. coli as well as Proteus as the patient was significantly hypothermic on admission a component of UTI likely 2--local wound care to the right heel wound with Aquacel silver dressing change every 48 hours and keep the area of the pressure 3-patient slowly clinical improvement and did have normalization of her temperature, patient to continue Rocephin 2 g daily while inpatient and monitor clinical course closely Dictation was produced using [employer] dictation software. please excuse any grammatical, word or spelling errors. Time with Patient: Less than 30
[2023-10-19 17:21] LABS: Glucose,Whole Blood 165 mg/dL (70-110)
[2023-10-19 20:39] LABS: Glucose,Whole Blood 110 mg/dL (70-110)
[2023-10-20 05:41] LABS: Glucose,Whole Blood 142 mg/dL (70-110)
--- NOTE | 2023-10-20 10:35 | P.PN ---
Subjective Progress Note Date: 10/20/23 This is a 58-year-old female patient of Dr. Jose with a past medical history significant for coronary artery disease with previous stenting, cardiomyopathy, hypertension, hyperlipidemia, diabetes, severe pulmonary hypertension, COPD, and chronic kidney disease previously on hemodialysis. We have been asked to see the patient in consultation for bradycardic episodes and extensive cardiac history. Patient was recently discharged from the hospital on 09/26 and went to the assisted. She had previous hospitalization for cardiopulmonary arrest, anoxic encephalopathy. She has history of a stent to the RCA on 05/2023. Patient was brought back into the hospital due to abnormal lab work found to have acute kidney injury with creatinine of 3.72. Along with hyperkalemia, sepsis with possible UTI, fracture of the malleolus, rectal prolapse and scheduled for repair of the rectal prolapse today. Patient denies having any chest pain chest pressure, no palpitations, no dizziness. She previously was h aving some nausea and vomiting but none at this time. She denies any blood in her urine or stools. No cough or fever. Patient has been on on IV sodium bicarb currently on oral as well as received daily dosed IV Lasix. Patient required norepinephrine at the time of admission back on 10/08. Patient's beta- satnam and blood pressure medications have not been resumed. Plavix is also on hold. Patient had episodes of heart rate at 40 on both 10/12 and 10/13. EKG reveals sinus mechanism Chest xray performed on 10/11 revealed no overt failure. Atelectasis favored over pneumonia. Left lower lobe retrocardiac consolidation represents atelectasis or infiltrate. Laboratory data: WBC 4.7, hemoglobin 8, platelet count 97. BUN 119, creatinine 3.58. Calcium 5.6. Phosphorus 9.3. Magnesium 2.1. Albumin 2.5. Procalcitonin 0.32. TSH 8.16. Urinalysis with leukoesterase large, RBCs greater than 182, WBC greater than 182. Squamous cells 19. Current home cardiac medications include amlodipine 5 mg daily, aspirin 81 mg daily, Bumex 1 mg daily, Plavix 75 mg daily, Farxiga 5 mg daily, hydralazine 25 mg 3 times daily, Imdur 30 mg daily, Toprol-XL 12.5 mg daily, Aldactone 12.5 mg daily. Most recent echocardiogram obtained in 08/20/2023 reveals LVH with preserved systolic function. Increased right ventricular systolic pressures. Cardiac catheterization history: 06/24/2023 with stenting of the proximal RCA 10/19/2023 Was seen and examined resting comfortably in reclining chair. She denies any chest pain or pressure. She feels her breathing is somewhat better especially with oxygen on. Continues on IV Lasix 40 mg twice daily per nephrology. Continues to complain of lower extremity edema. She has had recurrent epistaxis. No labs are available for today. 10/20/2023 The patient was seen and examined resting comfortably in bed. She denies any chest pain or pressure. Her breathing is stable. She continues on IV Lasix per nephrology. Edema is stable. Renal function yesterday showed some improvement. Blood pressure has been elevated heart rate has been stable. Objective - Vital Signs Vital signs: Vital Signs Temp 98.0 F 10/20/23 07:31 Pulse 63 10/20/23 07:31 Resp 18 10/20/23 07:31 BP 148/87 10/20/23 07:31 Pulse Ox 98 10/20/23 07:31 FiO2 Intake & Output 10/19/23 10/20/23 10/20/23 18:59 06:59 18:59 Output Total 850 800 Balance -850 -800 Output: Urine 850 800 Other: Voiding Method Indwelling Catheter Indwelling Catheter Indwelling Catheter - Exam VITAL SIGNS: Reviewed. GENERAL: Well-developed in no acute distress. NECK: Supple. No JVD or thyromegaly LUNGS: Respirations even and unlabored. Lungs essentially clear to auscultation bilaterally. HEART: Regular rate and rhythm. S1 and S2 heard. Systolic murmur noted. EXTREMITIES: Normal range of motion. No clubbing or cyanosis. Peripheral pulses intact. 1-2+ bilateral lower extremity edema - Labs CBC & Chem 7: 10/19/23 11:46 10/19/23 11:46 Labs: Abnormal Lab Results - Last 24 Hours (Table) 10/19/23 10/19/23 10/19/23 Range/Units 11:46 11:46 11:49 RBC 2.78 L (3.80-5.40) m/uL Hgb 8.0 L (11.4-16.0) gm/dL Hct 27.5 L (34.0-46.0) % MCHC 29.1 L (31.0-37.0) g/dL RDW 17.9 H (11.5-15.5) % Plt Count 133 L D (150-450) k/uL Carbon Dioxide 32 H (22-30) mmol/L BUN 55 H (7-17) mg/dL Creatinine 2.06 H (0.52-1.04) mg/dL Glucose 130 H (74-99) mg/dL POC Glucose (mg/dL) 173 H (70-110) mg/dL Calcium 7.5 L (8.4-10.2) mg/dL 10/19/23 10/20/23 Range/Units 17:20 05:38 RBC (3.80-5.40) m/uL Hgb (11.4-16.0) gm/dL Hct (34.0-46.0) % MCHC (31.0-37.0) g/dL RDW (11.5-15.5) % Plt Count (150-450) k/uL Carbon Dioxide (22-30) mmol/L BUN (7-17) mg/dL Creatinine (0.52-1.04) mg/dL Glucose (74-99) mg/dL POC Glucose (mg/dL) 165 H 142 H (70-110) mg/dL Calcium (8.4-10.2) mg/dL Assessment and Plan Assessment: Bradycardia, asymptomatic, no sign of high degree AV block Acute kidney injury, improving Hyperkalemia, resolved Hypernatremia Metabolic acidosis Sepsis secondary to UTI Rectal prolapse surgery scheduled on 10/13 was canceled Hypotension requiring vasopressor, resolved Acute on chronic heart failure with reduced EF, 40 to 45% Mild to moderate mitral regurgitation and moderate tricuspid regurgitation Coronary artery disease with recent stenting of the proximal RCA, 06/24/2023 History of cardiac arrest Ischemic cardiomyopathy Chronic kidney disease History of renal failure requiring hemodialysis, not currently on hemodialysis Hypertension Hyperlipidemia Diabetes Severe pulmonary hypertension COPD Former nicotine dependence Malleolus fracture Bicytopenia Plan: From Cardiology's perspective continue diuretics per nephrology. Continue to ho ld beta-blockers at this time. Will resume home dose of hydralazine. From our standpoint patient remains high risk for surgery and we recommend postponing at this time. [employer] GRADER note has been reviewed, I agree with a documented findings and plan of care. Patient was seen and examined.
--- NOTE | 2023-10-20 10:49 | P.PN ---
Subjective Progress Note Date: 10/20/23 Principal diagnosis: Rectal prolapse Patient doing well today. Denies rectal pain. No bleeding. Tolerating diet. Objective - Vital Signs Vital signs: Vital Signs Temp 98.0 F 10/20/23 07:31 Pulse 63 10/20/23 07:31 Resp 18 10/20/23 07:31 BP 148/87 10/20/23 07:31 Pulse Ox 98 10/20/23 07:31 FiO2 Intake & Output 10/19/23 10/20/23 10/20/23 18:59 06:59 18:59 Output Total 850 800 Balance -850 -800 Output: Urine 850 800 Other: Voiding Method Indwelling Catheter Indwelling Catheter Indwelling Catheter - Exam Abdomen: Soft, nontender, nondistended - Labs CBC & Chem 7: 10/19/23 11:46 10/19/23 11:46 Labs: Abnormal Lab Results - Last 24 Hours (Table) 10/19/23 10/19/23 10/19/23 Range/Units 11:46 11:46 11:49 RBC 2.78 L (3.80-5.40) m/uL Hgb 8.0 L (11.4-16.0) gm/dL Hct 27.5 L (34.0-46.0) % MCHC 29.1 L (31.0-37.0) g/dL RDW 17.9 H (11.5-15.5) % Plt Count 133 L D (150-450) k/uL Carbon Dioxide 32 H (22-30) mmol/L BUN 55 H (7-17) mg/dL Creatinine 2.06 H (0.52-1.04) mg/dL Glucose 130 H (74-99) mg/dL POC Glucose (mg/dL) 173 H (70-110) mg/dL Calcium 7.5 L (8.4-10.2) mg/dL 10/19/23 10/20/23 Range/Units 17:20 05:38 RBC (3.80-5.40) m/uL Hgb (11.4-16.0) gm/dL Hct (34.0-46.0) % MCHC (31.0-37.0) g/dL RDW (11.5-15.5) % Plt Count (150-450) k/uL Carbon Dioxide (22-30) mmol/L BUN (7-17) mg/dL Creatinine (0.52-1.04) mg/dL Glucose (74-99) mg/dL POC Glucose (mg/dL) 165 H 142 H (70-110) mg/dL Calcium (8.4-10.2) mg/dL Assessment and Plan (1) Rectal prolapse Narrative/Plan: 58-year-old female with rectal prolapse. Patient still with significant edema. Cardiology recommending postponing any surgical intervention until optimized. Will cancel surgery for tomorrow. Continue observation. Current Visit: Yes Status: Acute Code(s): K62.3 - RECTAL PROLAPSE SNOMED Code(s): 87043367
[2023-10-20] MEDS: hydrALAZINE HCL 25 MG TAB PO SCH (11:29)
[2023-10-20] MEDS: DAPAGLIFLOZIN PROPANEDIOL 10 MG TABLET PO SCH (11:30)
[2023-10-20 11:40] LABS: Glucose,Whole Blood 150 mg/dL (70-110)
--- NOTE | 2023-10-20 13:07 | P.PN ---
Subjective Patient is seen for follow-up for acute kidney injury. currently maintained on IV Lasix. Renal function is stable with serum creatinine at about 2.0 mg/dL. no significant complaints today. Objective - Vital Signs Vital signs: Vital Signs Temp 97.4 F L 10/20/23 11:33 Pulse 75 10/20/23 11:33 Resp 18 10/20/23 07:31 BP 165/89 10/20/23 11:33 Pulse Ox 98 10/20/23 07:31 FiO2 Intake & Output 10/19/23 10/20/23 10/20/23 18:59 06:59 18:59 Output Total 850 800 Balance -850 -800 Output: Urine 850 800 Other: Voiding Method Indwelling Catheter Indwelling Catheter Indwelling Catheter - Exam patient is awake. She does recognize me. Answers questions appropriately. Examination of the heart S1 and S2 Examination of the lungs bilateral breath sounds are heard Abdomen is soft nontender Examination of lower extremities shows edema 1+ bilaterally, right leg in brace SAFETY REPRESENTATIVE exam shows patient is moving all 4 extremities. - Labs CBC & Chem 7: 10/19/23 11:46 10/19/23 11:46 Labs: Abnormal Lab Results - Last 24 Hours (Table) 10/19/23 10/19/23 10/19/23 Range/Units 11:46 11:46 17:20 RBC 2.78 L (3.80-5.40) m/uL Hgb 8.0 L (11.4-16.0) gm/dL Hct 27.5 L (34.0-46.0) % MCHC 29.1 L (31.0-37.0) g/dL RDW 17.9 H (11.5-15.5) % Plt Count 133 L D (150-450) k/uL Carbon Dioxide 32 H (22-30) mmol/L BUN 55 H (7-17) mg/dL Creatinine 2.06 H (0.52-1.04) mg/dL Glucose 130 H (74-99) mg/dL POC Glucose (mg/dL) 165 H (70-110) mg/dL Calcium 7.5 L (8.4-10.2) mg/dL 10/20/23 10/20/23 Range/Units 05:38 11:38 RBC (3.80-5.40) m/uL Hgb (11.4-16.0) gm/dL Hct (34.0-46.0) % MCHC (31.0-37.0) g/dL RDW (11.5-15.5) % Plt Count (150-450) k/uL Carbon Dioxide (22-30) mmol/L BUN (7-17) mg/dL Creatinine (0.52-1.04) mg/dL Glucose (74-99) mg/dL POC Glucose (mg/dL) 142 H 150 H (70-110) mg/dL Calcium (8.4-10.2) mg/dL Assessment and Plan Assessment: 1. Acute kidney injury secondary to ATN secondary to severe sepsis. Now also component of cardiorenal syndrome. Renal function improving with diuresis. Creatinine stable at about 2.2 mg/dL. 2. Severe sepsis due to UTI on antibiotics. 3. Metabolic acidosis secondary to acute kidney injury improved with bicarb drip. On oral bicarb. Better. 4. Hyperkalemia secondary to acute kidney injury and metabolic acidosis. Resolved. 5. History of cardiac arrest. 6. Chronic kidney disease stage IIIb with baseline creatinine 1.5-1.8. Patient required renal replacement therapy in the past. 7. Rectal prolapse. Surgery following. 8. Chronic kidney disease mineral bone disease with hypocalcemia and hyperphosphatemia. On PhosLo. Better. 9. Diabetes mellitus. 10. Anemia of chronic kidney disease maintained on Aranesp. 11. Cardiomyopathy ejection fraction of 40 to 45% with mild to moderate mitral regurgitation and moderate tricuspid regurgitation. 12. Hypernatremia from lack of oral water intake and free water diuresis. Plan: discontinue D5W continue with Lasix. Check labs in a.m.
--- NOTE | 2023-10-20 13:10 | P.PN ---
Subjective Progress Note Date: 10/20/23 Patient is a 58-year-old female with a past medical history of hypertension, hyperlipidemia, diabetes type 2, CKD stage III with baseline creatinine around 1.8, ischemic cardiomyopathy with improved EF, GBS, history of hemodialysis and prior history of smoking was sent from [facility] due to worsening renal function with elevated creatinine level.. Patient was recently discharged from the hospital on 09/27/2023. Admitted on 08/19/2023. Patient was status post cardiac arrest and respiratory failure requi ring intubation. Patient was treated for acute CHF and hypoxic respiratory failure, ischemic cardiomyopathy ejection fraction improved. Patient was discharged to [facility]. Patient also has right heel stage III pressure ulcer and subacute fracture of the medial and lateral malleolus, no plans for immediate surgical intervention as per orthopedic surgery. She was also treated for E. coli urinary tract infection. Patient was having episodes of vomiting couple days ago and also had diarrhea yesterday. Continue to have nausea and decreased oral intake. Otherwise denies any complaints of abdominal pain. No complaints of diarrhea at today. Patient was recently discharged home with antibiotics, doxycycline on 09/27/2023. Denied any fever or chills. No chest pain or shortness of breath. No cough or sputum production. Chest x-ray showed correlate for mild CHF. Left lower lobe consolidation could be on the basis of pneumonia or chronic atelectasis. Stable from prior exam. EKG showed sinus bradycardia with heart rate 55. Laboratory data showed hemoglobin 8.0, WBC 4.3 and platelets 125 Sodium 134 potassium 6.0 chloride 109 bicarb is 15 BUN 130 and creatinine 3.72 and blood sugar 100 lactic acid 0.6 and calcium 6.3. Magnesium 2.4 alk phos 201 TSH 8.1 and free T40.94 0.97 Urinalysis showed turbid with large blood large leukocyte esterase and elevated RBCs and WBCs. Influenza A B and RSV COVID-19 PCR not detected. Patient was hypotensive with blood pressure 85/59 with pulse of 59 respirations 17 and pulse ox 100% on 2 L oxygen on admission. 10/10/2023 Patient is in the MICU. Awake alert and oriented. No complaints of chest pain or abdominal pain. No nausea or vomiting. Patient's blood pressure is low and remains on pressor support. Also on bicarb drip. Patient is able to make urine. Chest x-ray showed NG tube in good position. Renal ultrasound showed suboptimal study but no gross hydronephrosis identified bilaterally Laboratory data showed WBC 6.8 hemoglobin 7.8 and platelets 128, sodium 138 potassium 5.7 chloride 112 bicarb is 14 BUN 123 and creatinine 3.9 and blood sugar 137 A1c 6.4 calcium 6.1 and procalcitonin level is 0.32 patient remains on antibiotics of ceftriaxone. 10/11/2023 Patient is in the MICU. Awake alert and oriented. Currently on 2 L oxygen via nasal cannula. Otherwise patient is being continued on bicarb drip. Was also given dose of IV Lasix per nephrology for possible pulm overload. Patient does have urine output which is improving. Otherwise patient is being continued on ceftriaxone. Urine culture and blood cultures are pending. Laboratory data showed WBC 4.7 hemoglobin 8.0 and platelets 97 sodium 136 potassium 5.1 chloride 108 bicarb is 17 BUN 119 and creatinine 3.89 and blood sugar 150 and calcium 5.9 and vitamin D level is low at 19.4. Nephrology and pulmonary is on board. 10/12/2023 Patient is in the medical floor. Awake alert and oriented. No complaints of chest pain or shortness of breath. Patient does have good urine output. No nausea vomiting. Tolerating oral diet. Laboratory data showed sodium 138 potassium 4.85 chloride 106 bicarb is 23 BUN 119 and creatinine 3.58 and blood sugar 135 calcium 5.6 and phosphorus 9.3 and albumin 2.5. Patient is being continued on ceftriaxone. Urine culture showed E. coli and Proteus. Patient is also on vitamin D supplementation. 10/13/2023 Patient is resting in the bed. Awake alert and oriented. No complaints of chest pain or shortness of breath. No nausea or vomiting. Patient does have good urine output. Previous laboratory data reviewed. Patient is tolerating oral diet. Scheduled for rectal prolapse. Tomorrow. Continue with vitamin D supplementation and calcium. Albumin 2.5. Nephrology, pulmonary and general surgery is on board. Follow-up CBC and BMP tomorrow. Current medications reviewed. 10/14/2023 Patient is evaluated today on the medical floor sitting up in bed she is awake alert and oriented has family at the bedside. General surgery is following for the rectal prolapse recommending to hold off on surgery at this time due to current clinical condition. Patient is tolerating oral intake at this time. Continues on IV Ceftin at this time for urine culture showing E. coli and Proteus we would ask ID to evaluate for antibiotic coverage for these. Blood work today reveals a white count of 3.1, hemoglobin 8.1, platelet count of 69, sodium 144, potassium 3.2, BUN 95, creatinine 3.09. Calcium 5.9, phosphorus 7.7. Hemodynamically she is stable. Temp today 97.5, 96.7. 10/15/2023 Patient is evaluated in follow-up of medical floor. Alert and oriented x 3 she is tolerating some diet continues to report nausea. Patient is being followed by general surgery with plans for rectal prolapse repair sometime next week. She has been off the Coco hugger now for 24 hours and holding temps 97.4 oral. She is requiring 2 L of oxygen. Cardiology was consulted secondary to episodes of bradycardia. Patient will have a repeat echocardiogram completed. ID has revealed the patient recommending to continue IV ceftriaxone. Her labs are improving white blood cell count 5.0, hemoglobin 8.0, platelet count of 78, BUN of 88, creatinine of 2.64, sodium 142. Calcium level 6.6 has improved. 10/16/2023 Patient is evaluated in follow-up on the stepdown unit she can be transitioned to medical surgical floor. She is currently alert x 3 she is tolerating diet and reporting improvement in her nausea today. Rectal surgery prolapse has been on hold and per cardiology she is a high risk for surgical intervention of any kind. Patient's limited echocardiogram comes back showing an EF of 40 to 45% her ejection fraction back in July of this year was normal. Cardiology has started this patient on Farxiga and have resumed the Plavix. She has been on and off the Coco hugger at this time. We did consult PT for evaluation but we are unsure what her weightbearing status is at this time will likely need to reevaluate orthopedics for evaluation. She continues on IV ceftriaxone. Labs today with a white blood cell count of 6.6, hemoglobin 8.2, platelet count of 76, sodium 143, BUN of 77, creatinine 1.36, glucose of 140s. Calcium 6.9. 10/16. Patient seen and examined. States she feels better. Still complaining of lethargy and weakness 10/17. Patient seen and examined. Blood work done this morning showed WBC 5.59, hemoglobin 10.6, sodium 140, potassium 4.1, BUN 59.5, creatinine 2.2 10/18. Patient seen and examined. No acute issue overnight. 10/19. Patient seen and examined. Cardiology eval the patient, patient is still has swelling of lower extremities, the recommended postponing the surgery. Denies any shortness of breath at rest REVIEW OF SYSTEMS: CONSTITUTIONAL: No fever, no malaise,. CARDIOVASCULAR: No chest pain, no palpitations, no syncope. PULMONARY: No shortness of breath, no cough, GASTROINTESTINAL: No diarrhea, no nausea, no vomiting, no abdominal pain. NEUROLOGICAL: No headaches, no weakness, PHYSICAL EXAMINATION: GENERAL: The patient is alert and oriented x3, ill looking HEENT: Pupils are round and equally reacting to light. EOMI. No scleral icterus. No conjunctival pallor. Normocephalic, atraumatic. No pharyngeal erythema. No thyromegaly. CARDIOVASCULAR: S1 and S2 present. No murmurs, rubs, or gallops. PULMONARY: Chest is clear to auscultation, no wheezing or crackles. ABDOMEN: Soft, nontender, nondistended, normoactive bowel sounds. No palpable organomegaly. MUSCULOSKELETAL: No joint swelling or deformity. EXTREMITIES: 1+ pitting edema lower extremities bilaterally NEUROLOGICAL: Gross neurological examination did not reveal any focal deficits. SKIN: No rashes. Assessment and plan Acute kidney injury likely due to ATN due to hypotension and possible infection. Creatinine 3.72 on admission baseline creatinine around 1.8 Hyperkalemia due to MARYLOU. Improving Non-anion gap metabolic acidosis secondary to above Rectal prolapse CKD stage III stage IIIb due to nephrosclerosis/nephropathy and cardiorenal. Hypotension. Stable. E. coli and Proteus Mirabella's urinary tract infection Possible pneumonia with left lower lobe consolidation on chest x-ray. Vitamin D deficiency Hypertension. Patient is currently hypotensive. Recent admission due Asystole/cardiopulmonary rest and hypoxic respiratory failure. Discharged to [facility] on 09/27/2023. Anemia of chronic disease and iron deficiency anemia, thrombocytopenia Coronary artery disease with history of stent placement to [facility] and May 2023. Chronic CHF with systolic dysfunction Ischemic cardiomyopathy with improved EF Subacute fracture of the medial and lateral malleolus from previous admission. Right heel stage III pressure injury continue local wound care with aquacel ID following. Hyperlipidemia Type 2 diabetes mellitus uncontrolled hgb a1c 12.1 Severe pulmonary hypertension COPD without any acute exacerbation Peripheral neuropathy GI prophylaxis with PPI DVT prophylaxis heparin SQ every 12 Full Code Plan Monitor vital sign -monitor CBC Monitor CMP Continue aranesp. Strict I's and O's, daily weights, continue IV Lasix 40 mg twice a day continue on IV ceftriaxone Continue Plavix Wound care consultation for the right heel. Continue accuchecks ACHS sliding scale insulin. ID following cardiology following, recommended postponing surgery for rectal prolapse Orthopedic consult, recommend WBAT in Fracture boot of RLE Surgery following Labs and medication were reviewed.. Continue same treatment. Continue with symptomatic treatment. Resume home medication. Monitor labs and vitals. DVT and GI prophylaxis. Further recommendations as per clinical course of the patient Dictation was produced using [employer] dictation software. please excuse any grammatical, word or spelling errors. Objective - Vital Signs Vital signs: Vital Signs Temp 97.4 F L 10/20/23 11:33 Pulse 75 10/20/23 11:33 Resp 18 10/20/23 07:31 BP 165/89 10/20/23 11:33 Pulse Ox 98 10/20/23 07:31 FiO2 Intake & Output 10/19/23 10/20/23 10/20/23 18:59 06:59 18:59 Output Total 850 800 Balance -850 -800 Output: Urine 850 800 Other: Voiding Method Indwelling Catheter Indwelling Catheter Indwelling Catheter - Labs CBC & Chem 7: 10/19/23 11:46 10/19/23 11:46 Labs: Abnormal Lab Results - Last 24 Hours (Table) 10/19/23 10/19/23 10/19/23 Range/Units 11:46 11:46 17:20 RBC 2.78 L (3.80-5.40) m/uL Hgb 8.0 L (11.4-16.0) gm/dL Hct 27.5 L (34.0-46.0) % MCHC 29.1 L (31.0-37.0) g/dL RDW 17.9 H (11.5-15.5) % Plt Count 133 L D (150-450) k/uL Carbon Dioxide 32 H (22-30) mmol/L BUN 55 H (7-17) mg/dL Creatinine 2.06 H (0.52-1.04) mg/dL Glucose 130 H (74-99) mg/dL POC Glucose (mg/dL) 165 H (70-110) mg/dL Calcium 7.5 L (8.4-10.2) mg/dL 10/20/23 10/20/23 Range/Units 05:38 11:38 RBC (3.80-5.40) m/uL Hgb (11.4-16.0) gm/dL Hct (34.0-46.0) % MCHC (31.0-37.0) g/dL RDW (11.5-15.5) % Plt Count (150-450) k/uL Carbon Dioxide (22-30) mmol/L BUN (7-17) mg/dL Creatinine (0.52-1.04) mg/dL Glucose (74-99) mg/dL POC Glucose (mg/dL) 142 H 150 H (70-110) mg/dL Calcium (8.4-10.2) mg/dL
[2023-10-20 16:48] LABS: Glucose,Whole Blood 201 mg/dL (70-110)
[2023-10-20 20:23] LABS: Glucose,Whole Blood 182 mg/dL (70-110)
[2023-10-21 05:34] LABS: Glucose,Whole Blood 93 mg/dL (70-110)
[2023-10-21 08:49] LABS: BUN/Creat Ratio 22.05 Ratio (12.00-20.00); Blood Urea Nitrogen 46.3 mg/dL (9.0-27.0); Calcium 7.7 mg/dL (8.7-10.3); Chloride 102 mmol/L (96-109); Glucose 94 mg/dL (70-110); Potassium 4.3 mmol/L (3.5-5.5); Sodium 143 mmol/L (135-145)
--- NOTE | 2023-10-21 11:34 | P.PN ---
Subjective Progress Note Date: 10/21/23 Bradycardia episodes, extensive cardiac history History of present illness: This is a 58-year-old female patient of Dr. Jose with a past medical history significant for coronary artery disease with previous stenting, cardiomyopathy, hypertension, hyperlipidemia, diabetes, severe pulmonary hypertension, COPD, and chronic kidney disease previously on hemodialysis. We have been asked to see the patient in consultation for bradycardic episodes and extensive cardiac history. Patient was recently discharged from the hospital on 09/26 and went to the care home. She had previous hospitalization for cardiopulmonary arrest, anoxic encephalopathy. She has history of a stent to the RCA on 05/2023. Patient was brought back into the hospital due to abnormal lab work found to osborne ve acute kidney injury with creatinine of 3.72. Along with hyperkalemia, sepsis with possible UTI, fracture of the malleolus, rectal prolapse and scheduled for repair of the rectal prolapse today. Patient denies having any chest pain chest pressure, no palpitations, no dizziness. She previously was having some nausea and vomiting but none at this time. She denies any blood in her urine or stoo ls. No cough or fever. Patient has been on on IV sodium bicarb currently on oral as well as received daily dosed IV Lasix. Patient required norepinephrine at the time of admission back on 10/08. Patient's beta-satnam and blood pressure medications have not been resumed. Plavix is also on hold. Patient had episodes of heart rate at 40 on both 10/12 and 10/13. EKG reveals sinus mechanism Chest xray performed on 10/11 revealed no overt failure. Atelectasis favored over pneumonia. Left lower lobe retrocardiac consolidation represents atelectasis or infiltrate. Laboratory data: WBC 4.7, hemoglobin 8, platelet count 97. BUN 119, creatinine 3.58. Calcium 5.6. Phosphorus 9.3. Magnesium 2.1. Albumin 2.5. Procalcitonin 0.32. TSH 8.16. Urinalysis with leukoesterase large, RBCs greater than 182, WBC greater than 182. Squamous cells 19. Current home cardiac medications include amlodipine 5 mg daily, aspirin 81 mg daily, Bumex 1 mg daily, Plavix 75 mg daily, Farxiga 5 mg daily, hydralazine 25 mg 3 times daily, Imdur 30 mg daily, Toprol-XL 12.5 mg daily, Aldactone 12.5 mg daily. Most recent echocardiogram obtained in 08/20/2023 reveals LVH with preserved systolic function. Increased right ventricular systolic pressures. Cardiac catheterization history: 06/24/2023 with stenting of the proximal RCA 10/14 Patient is seen today in follow-up. Heart rate is running in the 70s. Patient noted to have a bloody nose which apparently her nurse and nurse aide are well aware of. Blood pressure 147/82, pulse ox 92% on room air. Repeat blood work for today is not reported at the time of this dictation. Rectal prolapse surgery that was scheduled for yesterday has been canceled. 10/15 Patient is seen today in follow-up. She denies having any chest pain or shortness of breath. Patient has a bear blanket on for temperature 94.4. Her blood pressure is currently stable, heart rate is stable. Yesterday we resumed Plavix as this was cleared by general surgery with no plan for immediate surgery. Blood pressure 134/76, heart rate 76, pulse ox 95% on 2 L, 86% on room air. Repeat blood work has not reported at the time of this dictation. Limited echocardiogram reveals EF 40 to 45%, mild to moderate mitral regurgitation, moderate tricuspid regurgitation. 10/19/2023 Was seen and examined resting comfortably in reclining chair. She denies any chest pain or pressure. She feels her breathing is somewhat better especially with oxygen on. Continues on IV Lasix 40 mg twice daily per nephrology. Continues to complain of lower extremity edema. She has had recurrent epista xis. No labs are available for today. 10/20/2023 The patient was seen and examined resting comfortably in bed. She denies any chest pain or pressure. Her breathing is stable. She continues on IV Lasix per nephrology. Edema is stable. Renal function yesterday showed some improvement. Blood pressure has been elevated heart rate has been stable. 10/20 Patient is resting comfortably in bed. No complaints of chest pain, no complaints of shortness of breath. She is currently on IV Lasix 40 mg every 12 hours. Blood pressure 150/88, heart rate 72, pulse ox 90% on 2 L nasal cannula. Repeat blood work reveals potassium 4.3, BUN 46 creatinine 2.01. Patient has a negative fluid balance. Rectal prolapse surgery has been postponed. PHYSICAL EXAM: VITAL SIGNS: Reviewed. GENERAL: Well-developed in no acute distress. HEENT: Head is normocephalic. Pupils are equal, round. Sclerae anicteric. Mucous membranes of the mouth are moist. Neck supple. No JVD or thyromegaly LUNGS: Respirations even and unlabored. Lungs diminished with bibasilar crackles HEART: Regular rate and rhythm. S1 and S2 heard. 3/6 systolic murmur at the base and 2/6 systolic murmur at the apex ABDOMEN: Soft. Nondistended. Nontender. EXTREMITIES: Peripheral pulses intact. Bilateral lower extremity edema noted. Right worse than left NEUROLOGIC: Awake and alert. ASSESSMENT: Bradycardia, asymptomatic, no sign of high degree AV block Acute kidney injury Hyperkalemia Metabolic acidosis Sepsis secondary to UTI Rectal prolapse surgery scheduled on 10/13 was canceled Hypotension requiring vasopressor Chronic heart failure with reduced EF, 40 to 45% Mild to moderate mitral regurgitation and moderate tricuspid regurgitation Coronary artery disease with recent stenting of the proximal RCA, 06/24/2023 Ischemic cardiomyopathy Chronic kidney disease History of renal failure requiring hemodialysis Hypertension Hyperlipidemia Diabetes Severe pulmonary hypertension COPD Former nicotine dependence Malleolus fracture Bicytopenia PLAN: Transition IV Lasix to oral Bumex 1 mg twice daily Daily weights, accurate intake and output, and monitoring of kidney function Continue current cardiac medications: Aspirin 81 mg daily, decrease Lipitor to 40 mg daily, Plavix 75 mg daily, Farxiga 10 mg daily hydralazine 25 mg twice daily Patient is not on beta-satnam. Patient is cleared for discharge from cardiology and may follow-up in the office with Dr. Jose in 1 to 2 weeks. Nurse practitioner note has been reviewed by physician. Signing provider agrees with the documented findings, assessment, and plan of care documented by DYE ROOM HELPER as a scribe. Objective - Vital Signs Vital signs: Vital Signs Temp 97.7 F 10/21/23 07:05 Pulse 72 10/21/23 07:05 Resp 14 10/21/23 07:05 BP 150/88 10/21/23 07:05 Pulse Ox 98 10/21/23 07:05 FiO2 Intake & Output 10/20/23 10/21/23 10/21/23 18:59 06:59 18:59 Intake Total 240 Output Total 950 2600 Balance -950 -2600 240 Intake: Oral 240 Output: Urine 950 2600 Other: Voiding Method Indwelling Catheter Indwelling Catheter Indwelling Catheter - Labs CBC & Chem 7: 10/19/23 11:46 10/21/23 03:07 Labs: Abnormal Lab Results - Last 24 Hours (Table) 10/20/23 10/20/23 10/20/23 Range/Units 11:38 16:46 20:14 Carbon Dioxide (21.6-31.8) mmol/L BUN (9.0-27.0) mg/dL Creatinine (0.6-1.5) mg/dL Est GFR (CKD-EPI) (>=60) BUN/Creatinine Ratio (12.00-20.00) Ratio POC Glucose (mg/dL) 150 H 201 H 182 H (70-110) mg/dL Calcium (8.7-10.3) mg/dL 10/21/23 Range/Units 03:07 Carbon Dioxide 33.0 H (21.6-31.8) mmol/L BUN 46.3 H (9.0-27.0) mg/dL Creatinine 2.1 H (0.6-1.5) mg/dL Est GFR (CKD-EPI) 27 L (>=60) BUN/Creatinine Ratio 22.05 H (12.00-20.00) Ratio POC Glucose (mg/dL) (70-110) mg/dL Calcium 7.7 L (8.7-10.3) mg/dL
[2023-10-21 11:52] LABS: Glucose,Whole Blood 134 mg/dL (70-110)
--- NOTE | 2023-10-21 12:36 | P.PN ---
Subjective Patient is seen for follow-up for acute kidney injury. currently maintained on IV Lasix. Renal function is stable with serum creatinine at about 2.0 mg/dL. no significant complaints today. off of D5W. Serum sodium at 143 today. Objective - Vital Signs Vital signs: Vital Signs Temp 97.7 F 10/21/23 07:05 Pulse 72 10/21/23 07:05 Resp 14 10/21/23 07:05 BP 150/88 10/21/23 07:05 Pulse Ox 98 10/21/23 07:05 FiO2 Intake & Output 10/20/23 10/21/23 10/21/23 18:59 06:59 18:59 Intake Total 240 Output Total 950 2600 Balance -950 -2600 240 Intake: Oral 240 Output: Urine 950 2600 Other: Voiding Method Indwelling Catheter Indwelling Catheter Indwelling Catheter - Exam patient is awake. Answers questions appropriately. Examination of the heart S1 and S2 Examination of the lungs bilateral breath sounds are heard Abdomen is soft nontender Examination of lower extremities shows edema 1+ bilaterally, right leg in brace FORGE TENDER exam shows patient is moving all 4 extremities. - Labs CBC & Chem 7: 10/19/23 11:46 10/21/23 03:07 Labs: Abnormal Lab Results - Last 24 Hours (Table) 10/20/23 10/20/23 10/21/23 Range/Units 16:46 20:14 03:07 Carbon Dioxide 33.0 H (21.6-31.8) mmol/L BUN 46.3 H (9.0-27.0) mg/dL Creatinine 2.1 H (0.6-1.5) mg/dL Est GFR (CKD-EPI) 27 L (>=60) BUN/Creatinine Ratio 22.05 H (12.00-20.00) Ratio POC Glucose (mg/dL) 201 H 182 H (70-110) mg/dL Calcium 7.7 L (8.7-10.3) mg/dL 10/21/23 Range/Units 11:48 Carbon Dioxide (21.6-31.8) mmol/L BUN (9.0-27.0) mg/dL Creatinine (0.6-1.5) mg/dL Est GFR (CKD-EPI) (>=60) BUN/Creatinine Ratio (12.00-20.00) Ratio POC Glucose (mg/dL) 134 H (70-110) mg/dL Calcium (8.7-10.3) mg/dL Assessment and Plan Assessment: 1. Acute kidney injury secondary to ATN secondary to severe sepsis. Now also component of cardiorenal syndrome. Renal function improving with diuresis. Creatinine stable at about 2.2 mg/dL. 2. Severe sepsis due to UTI on antibiotics. 3. Metabolic acidosis secondary to acute kidney injury improved with bicarb drip. On oral bicarb. Better. 4. Hyperkalemia secondary to acute kidney injury and metabolic acidosis. Resolved. 5. History of cardiac arrest. 6. Chronic kidney disease stage IIIb with baseline creatinine 1.5-1.8. Patient required renal replacement therapy in the past. 7. Rectal prolapse. Surgery following. 8. Chronic kidney disease mineral bone disease with hypocalcemia and hyperphosphatemia. On PhosLo. Better. 9. Diabetes mellitus. 10. Anemia of chronic kidney disease maintained on Aranesp. 11. Cardiomyopathy ejection fraction of 40 to 45% with mild to moderate mitral regurgitation and moderate tricuspid regurgitation. 12. Hypernatremia from lack of oral water intake and free water diuresis. Plan: switch to oral Lasix Check labs in a.m.
--- NOTE | 2023-10-21 14:14 | P.PN ---
Subjective Progress Note Date: 10/21/23 CHIEF COMPLAINT: Worsening renal function and UTI HISTORY OF PRESENT ILLNESS: Surgical service following regards to patient's rectal prolapse. Patient denies any rectal pain. Patient is transitioning to oral Bumex. Cardiology has cleared patient for discharge. Patient reports that she will be discharged today. Patient is high risk for surgery. PHYSICAL EXAM: VITAL SIGNS: Reviewed. GENERAL: no acute distress. ABDOMEN: Soft. Nondistended. Nontender. ASSESSMENT: 1. Rectal prolapse 2. Acute on chronic renal failure 3. UTI with hypotension 4. History of coronary disease with cardiac stent placed in May 2023 5. Recent cardiopulmonary arrest on last hospitalization PLAN: -Recommend lower anterior resection for rectal prolapse when patient is medically stable -If patient is discharged. Recommend follow-up with Dr. Marlow outpatient Physician [employer] note has been reviewed by physician. Signing provider agrees with the documented findings, assessment, and plan of care. Objective - Vital Signs Vital signs: Vital Signs Temp 97.7 F 10/21/23 07:05 Pulse 72 10/21/23 07:05 Resp 14 10/21/23 07:05 BP 150/88 10/21/23 07:05 Pulse Ox 98 10/21/23 07:05 FiO2 Intake & Output 10/20/23 10/21/23 10/21/23 18:59 06:59 18:59 Intake Total 240 Output Total 950 2600 Balance -950 -2600 240 Intake: Oral 240 Output: Urine 950 2600 Other: Voiding Method Indwelling Catheter Indwelling Catheter Indwelling Catheter # Bowel Movements 2 - Labs CBC & Chem 7: 10/19/23 11:46 10/21/23 03:07 Labs: Abnormal Lab Results - Last 24 Hours (Table) 10/20/23 10/20/23 10/21/23 Range/Units 16:46 20:14 03:07 Carbon Dioxide 33.0 H (21.6-31.8) mmol/L BUN 46.3 H (9.0-27.0) mg/dL Creatinine 2.1 H (0.6-1.5) mg/dL Est GFR (CKD-EPI) 27 L (>=60) BUN/Creatinine Ratio 22.05 H (12.00-20.00) Ratio POC Glucose (mg/dL) 201 H 182 H (70-110) mg/dL Calcium 7.7 L (8.7-10.3) mg/dL 10/21/23 Range/Units 11:48 Carbon Dioxide (21.6-31.8) mmol/L BUN (9.0-27.0) mg/dL Creatinine (0.6-1.5) mg/dL Est GFR (CKD-EPI) (>=60) BUN/Creatinine Ratio (12.00-20.00) Ratio POC Glucose (mg/dL) 134 H (70-110) mg/dL Calcium (8.7-10.3) mg/dL
--- NOTE | 2023-10-21 14:56 | P.DS ---
Providers Date of admission: 10/09/23 15:23 Expected date of discharge: 10/21/23 Attending physician: Brandon Colón Consults: 10/09/23 15:10 Consult Physician Routine Consulting Provider: Janey Nunez Consult Reason/Comments: MARYLOU/CKD Do you want consulting provider notified?: Yes 10/09/23 15:21 Consult Physician Stat Consulting Provider: Breana Ayala Consult Reason/Comments: critical care Do you want consulting provider notified?: Yes 10/10/23 03:07 Consult Physician Urgent Consulting Provider: Yonas Marlow Consult Reason/Comments: rectal prolapse Do you want consulting provider notified?: Yes 10/13/23 19:03 Consult Physician Urgent Consulting Provider: Ziggy Jose Consult Reason/Comments: Bradycardic episodes, extensive cardiac history Do you want consulting provider notified?: Yes 10/14/23 10:01 Consult Physician Routine Consulting Provider: Shawnee Subramanian Consult Reason/Comments: UTI with resistance Do you want consulting provider notified?: Yes 10/16/23 14:18 Consult Physician Routine Consulting Provider: Nikolay Nickerson Consult Reason/Comments: Re-evaluation right ankle fracture has been NWB Do you want consulting provider notified?: Yes Primary care physician: [place] Hospital Course: Final diagnosis Acute kidney injury likely due to ATN due to hypotension and possible infection. Creatinine 3.72 on admission baseline creatinine around 1.8 Hyperkalemia due to MARYLOU. Improving Non-anion gap metabolic acidosis secondary to above Rectal prolapse, will need to follow-up after cardiology clearance with general surgery for surgical intervention CKD stage III stage IIIb due to nephrosclerosis/nephropathy and cardiorenal. Hypotension. Stable. E. coli and Proteus Mirabella's urinary tract infection, present on admission Possible pneumonia with left lower lobe, consolidation on chest x-ray. Ruled out Vitamin D deficiency Hypertension. Patient is currently hypotensive. Recent admission due Asystole/cardiopulmonary rest and hypoxic respiratory failure. Discharged to [facility] on 09/27/2023. Anemia of chronic disease and iron deficiency anemia, thrombocytopenia Coronary artery disease with history of stent placement to and May 2023. Chronic CHF with systolic dysfunction Ischemic cardiomyopathy with improved EF Subacute fracture of the medial and lateral malleolus from previous admission. Right heel stage III pressure injury continue local wound care with aquacel ID following. Hyperlipidemia Type 2 diabetes mellitus uncontrolled hgb a1c 12.1 Severe pulmonary hypertension COPD without any acute exacerbation Peripheral neuropathy GI prophylaxis with PPI DVT prophylaxis heparin SQ every 12 Full Code Discharge disposition Patient is being discharged in a stable condition with guarded prognosis to [facility]. Patient will follow-up with Dr. Nolen in the outpatient setting upon discharge. Patient is to continue with repeat labs of CBC, CMP, magnesium in 2 to 3 days and close outpatient follow-up with general surgery, cardiology, orthopedics as scheduled. Patient will require cardiology clearance for surgical intervention given significant history. Total time taken is greater than 35 minutes. Hospital course This is a 58-year-old female who was recently admitted with acute kidney injury being closely monitored with multiple medical consultations following. Patient with concerns of urinary tract infection, present on admission and culture showing E. coli and Proteus Mirabella's maintained on ceftriaxone. Infectious disease following and will continue oral Ceftin on discharge for 5-day course to complete the course. Patient also with rectal prolapse evaluated by surgery for possible intervention although cardiology recommend stabilizing maximizing med ical management and kidney functions prior to any surgical intervention. Patient is extremely high risk given significant history and multiple comorbidities. Patient instructed to follow-up with nephrology, cardiology, general surgery, and orthopedics outpatient. Please refer to other consultation notes for further HPI. Currently no reports of chest pain, shortness of breath, or palpitations. Patient is afebrile. No reports of nausea or vomiting and patient is tolerating diet. Patient will be going to [facility] today. Guarded prognosis and high risk for readmissions given patient's significant comorbidities. Physical exam: Gen: This is a 58-year-old female who is awake, alert oriented x 3, well- developed, elderly appearing HEENT: Head is atraumatic, normocephalic. Pupils equal, round. Sclerae is anicteric. NECK: Supple. No JVD. No lymphadenopathy. No thyromegaly. LUNGS: Diminished breath sounds bilaterally otherwise clear to auscultation. No wheezes or rhonchi. No intercostal retractions. HEART: S1, S2 are muffled ABDOMEN: Soft. Bowel sounds are present. No masses. No tenderness. EXTREMITIES: No pedal edema. No calf tenderness. NEUROLOGICAL: Patient is awake, alert and oriented x3. Cranial nerves 2 through 12 are grossly intact. Diffusely weak Please refer to medication reconciliation sheet for a list of medications. The impression and plan of care has been dictated by Mouna Rowley, Nurse Practitioner as directed. Dr. Wyatt MD I have performed a history and examination and MDM of this patient, discussed the same with the dictator, and agree with the dictator's assessment and plan as written ,documented as a scribe. Based on total visit time, I have performed more than 50% of the visit. Patient Condition at Discharge: Fair Plan - Discharge Summary New Discharge Prescriptions: New Bumetanide [BUMEX] 1 mg PO BID@0900,1600 tab cefUROXime axetiL [Ceftin] 500 mg PO BID 5 Days #10 tab Dapagliflozin Propanediol [Farxiga] 10 mg PO DAILY tab Atorvastatin [Lipitor] 40 mg PO DAILY tab Clotrimazole Cream [Lotrimin Cream] 1 applic TOPICAL BID each Levothyroxine Sodium [Synthroid] 75 mcg PO DAILY@0630 tab Cholecalciferol [Vitamin D3 (25 Mcg = 1000 Iu)] 25 mcg PO DAILY tab hydrALAZINE HCL [Apresoline] 25 mg PO BID tab Heparin Sodium,Porcine (1 ml) [Heparin Sodium] 5,000 unit SQ Q12HR each HYDROcodone/APAP 5-325MG [[place] 5-325] 1 each PO Q6HR PRN #4 tab PRN Reason: Pain INSULIN ASPART (NovoLOG) [NovoLOG (formulary)] 0 unit SQ ACHS each Calcium Acetate [PhosLo] 667 mg PO TID-W/MEALS tab Pantoprazole Sodium [Protonix] 40 mg PO DAILY #30 tab Continue Fluticasone Nasal [place] [Flonase Nasal [place]] 2 spray EA NOSTRIL DAILY ml Folic Acid 1 mg PO DAILY tab rOPINIRole HCL [Requip] 1 mg PO HS PRN tab PRN Reason: restless legs Acetaminophen Tab [Tylenol] 650 mg PO Q6HR PRN tab PRN Reason: Fever And/ Or Pain Ipratropium-Albuterol Nebulize [Duoneb 0.5 mg-3 mg/3 ml Soln] 3 ml INHALATION RT-Q6H PRN PRN Reason: Shortness Of Breath Healthshake 1 dose PO BID Darbepoetin Frantz [Aranesp] 40 mcg SQ SA Aspirin 81 mg PO DAILY 90 Days #90 tab Docusate [Colace] 100 mg PO BID cap Lidocaine 4% Patch 1 patch TOPICAL DAILY patch Melatonin 5 mg PO HS tab Clopidogrel [Plavix] 75 mg PO DAILY tab Thiamine [Vitamin B-1] 100 mg PO DAILY tab Multivitamins, Thera [Multivitamin (formulary)] 1 tab PO DAILY Discontinued rOPINIRole HCL [Requip] 1 mg PO HS hydrALAZINE HCL [Apresoline] 25 mg PO TID tab Bumetanide [BUMEX] 1 mg PO DAILY tab Metoprolol Succinate (ER) [Toprol XL] 12.5 mg PO DAILY tab Dapagliflozin Propanediol [Farxiga] 5 mg PO DAILY risperiDONE [RisperDAL] 2 mg PO BID DULoxetine HCL [Cymbalta] 20 mg PO DAILY Spironolactone [Aldactone] 12.5 mg PO DAILY tab Isosorbide Mononitrate ER [Imdur] 30 mg PO DAILY tab fluPHENAZine [Prolixin] 5 mg PO Q6HR PRN tab PRN Reason: Agitation Dextrose Chew [Glucose Chew Tab] 4 gm PO DIRECTED PRN PRN Reason: Hypoglycemia Sodium Chloride [Saline Mist] 2 spray EA NOSTRIL TID amLODIPine [Norvasc] 5 mg PO DAILY Discharge Medication List Aspirin 81 mg PO DAILY 90 Days #90 tab 06/25/23 [Rx] Acetaminophen Tab [Tylenol] 650 mg PO Q6HR PRN tab 09/27/23 [Rx] Clopidogrel [Plavix] 75 mg PO DAILY tab 09/27/23 [Rx] Docusate [Colace] 100 mg PO BID cap 09/27/23 [Rx] Fluticasone Nasal [place] [Flonase Nasal [place]] 2 spray EA NOSTRIL DAILY ml 09/27/23 [Rx] Folic Acid 1 mg PO DAILY tab 09/27/23 [Rx] Lidocaine 4% Patch 1 patch TOPICAL DAILY patch 09/27/23 [Rx] Melatonin 5 mg PO HS tab 09/27/23 [Rx] Thiamine [Vitamin B-1] 100 mg PO DAILY tab 09/27/23 [Rx] rOPINIRole HCL [Requip] 1 mg PO HS PRN tab 09/27/23 [Rx] Darbepoetin Frantz [Aranesp] 40 mcg SQ SA 10/09/23 [History] Healthshake 1 dose PO BID 10/09/23 [History] Ipratropium-Albuterol Nebulize [Duoneb 0.5 mg-3 mg/3 ml Soln] 3 ml INHALATION RT-Q6H PRN 10/09/23 [History] Multivitamins, Thera [Multivitamin (formulary)] 1 tab PO DAILY 10/09/23 [History] Atorvastatin [Lipitor] 40 mg PO DAILY tab 10/21/23 [Rx] Bumetanide [BUMEX] 1 mg PO BID@0900,1600 tab 10/21/23 [Rx] Calcium Acetate [PhosLo] 667 mg PO TID-W/MEALS tab 10/21/23 [Rx] Cholecalciferol [Vitamin D3 (25 Mcg = 1000 Iu)] 25 mcg PO DAILY tab 10/21/23 [Rx] Clotrimazole Cream [Lotrimin Cream] 1 applic TOPICAL BID each 10/21/23 [Rx] Dapagliflozin Propanediol [Farxiga] 10 mg PO DAILY tab 10/21/23 [Rx] HYDROcodone/APAP 5-325MG [[place] 5-325] 1 each PO Q6HR PRN #4 tab 10/21/23 [Rx] Heparin Sodium,Porcine (1 ml) [Heparin Sodium] 5,000 unit SQ Q12HR each [Rx] INSULIN ASPART (NovoLOG) [NovoLOG (formulary)] 0 unit SQ ACHS each 10/21/23 [Rx] Levothyroxine Sodium [Synthroid] 75 mcg PO DAILY@0630 tab 10/21/23 [Rx] Pantoprazole Sodium [Protonix] 40 mg PO DAILY #30 tab 10/21/23 [Rx] cefUROXime axetiL [Ceftin] 500 mg PO BID 5 Days #10 tab 10/21/23 [Rx] hydrALAZINE HCL [Apresoline] 25 mg PO BID tab 10/21/23 [Rx] Follow up Appointment(s)/Referral(s): Rodri Kent DO [Doctor of Osteopathic Medicine] - 1 Week Fadi Nolen DO [Primary Care Provider] - 1-2 days Yonas Marlow MD [STAFF PHYSICIAN] - 1 Week Activity/Diet/Wound Care/Special Instructions: -WBAT in fracture boot of RLE Patient is going to [facility] as tolerated Continue taking antibiotics for 5 days to complete the course Follow-up outpatient with cardiology, general surgery, orthopedics in 1 to 2 weeks Discharge Disposition: TRANSFER TO SNF/ECF
[2023-10-21 15:04] VITALS: BP 136/89; PULSE 88; RESP 18; TEMP 98
[2023-10-21] MEDS: BUMETANIDE 1 MG TAB PO SCH (15:31)
[2023-10-21 16:37] LABS: Glucose,Whole Blood 85 mg/dL (70-110)
--- NOTE | 2023-10-21 18:38 | P.PN ---
Subjective Progress Note Date: 10/20/23 Principal diagnosis: Reason for follow-up is resistant urinary tract infection Patient is a 55-year-old female with a past medical history significant for diabetes mellitus hypertension hyperlipidemia renal disease requiring dialysis at 1 point also with the right heel diabetic foot ulcer patient has been brought to the hospital concerning for worsening of her kidney function also noticed to be hypothermic positive UA concerning for symptomatic heeltap infection urine culture finalized with resistant E. coli and Proteus. On today's evaluation that is 10/20/2023, the patient continues to be afebrile, the patient is on 2 L cannula and breathing comfortably, the Pt denies having any chest pain or cough, the patient denies having any abdominal pain no vomiting or any diarrhea has been reported by the nursing staff. No lab draw today Objective - Vital Signs Vital signs: Vital Signs Temp 97.4 F L 10/20/23 11:33 Pulse 75 10/20/23 11:33 Resp 18 10/20/23 07:31 BP 165/89 10/20/23 11:33 Pulse Ox 98 10/20/23 07:31 FiO2 Intake & Output 10/19/23 10/20/23 10/20/23 18:59 06:59 18:59 Output Total 850 800 Balance -850 -800 Output: Urine 850 800 Other: Voiding Method Indwelling Catheter Indwelling Catheter Indwelling Catheter - Exam GENERAL DESCRIPTION: Middle-aged female lying in bed in no distress RESPIRATORY SYSTEM: Unlabored breathing , decreased breath sounds at bases HEART: S1 S2 regular rate and rhythm , ABDOMEN: Soft , no tenderness EXTREMITIES: Right heel wound is currently dressed - Labs CBC & Chem 7: 10/19/23 11:46 10/21/23 03:07 Labs: Abnormal Lab Results - Last 24 Hours (Table) 10/19/23 10/19/23 10/19/23 Range/Units 11:46 11:46 17:20 RBC 2.78 L (3.80-5.40) m/uL Hgb 8.0 L (11.4-16.0) gm/dL Hct 27.5 L (34.0-46.0) % MCHC 29.1 L (31.0-37.0) g/dL RDW 17.9 H (11.5-15.5) % Plt Count 133 L D (150-450) k/uL Carbon Dioxide 32 H (22-30) mmol/L BUN 55 H (7-17) mg/dL Creatinine 2.06 H (0.52-1.04) mg/dL Glucose 130 H (74-99) mg/dL POC Glucose (mg/dL) 165 H (70-110) mg/dL Calcium 7.5 L (8.4-10.2) mg/dL 10/20/23 10/20/23 Range/Units 05:38 11:38 RBC (3.80-5.40) m/uL Hgb (11.4-16.0) gm/dL Hct (34.0-46.0) % MCHC (31.0-37.0) g/dL RDW (11.5-15.5) % Plt Count (150-450) k/uL Carbon Dioxide (22-30) mmol/L BUN (7-17) mg/dL Creatinine (0.52-1.04) mg/dL Glucose (74-99) mg/dL POC Glucose (mg/dL) 142 H 150 H (70-110) mg/dL Calcium (8.4-10.2) mg/dL Assessment and Plan (1) Pressure ulcer of right heel, stage 3 Status: Acute Code(s): L89.613 - PRESSURE ULCER OF RIGHT HEEL, STAGE 3 SNOMED Code(s): 89720887758789 (2) Type 2 diabetes mellitus with foot ulcer Status: Acute Code(s): E11.621 - TYPE 2 DIABETES MELLITUS WITH FOOT ULCER; L97.509 - NON-PRESSURE CHRONIC ULCER OTH PRT UNSP FOOT W UNSP SEVERITY SNOMED Code(s): 859911388 (3) UTI (urinary tract infection) Status: Acute Code(s): N39.0 - URINARY TRACT INFECTION, SITE NOT SPECIFIED SNOMED Code(s): 33575388 Plan: 1patient presented to hospital with worsening of her kidney function and this patient also have significantly positive with some urinary symptoms of retention requiring Hays catheter placement now with urine growing drug-resistant E. coli as well as Proteus as the patient was significantly hypothermic on admission a component of UTI likely 2--local wound care to the right heel wound with Aquacel silver dressing change every 48 hours and keep the area of the pressure 3-patient did have some clinical improvement and did have normalization of her temperature, patient to continue Rocephin 2 g daily while inpatient and plan to finish therapy with oral antibiotics Dictation was produced using [employer] dictation software. please excuse any g rammatical, word or spelling errors.
--- NOTE | 2023-10-21 18:38 | P.PN ---
Subjective Progress Note Date: 10/21/23 Principal diagnosis: Reason for follow-up is resistant urinary tract infection Patient is a 55-year-old female with a past medical history significant for diabetes mellitus hypertension hyperlipidemia renal disease requiring dialysis at 1 point also with the right heel diabetic foot ulcer patient has been brought to the hospital concerning for worsening of her kidney function also noticed to be hypothermic positive UA concerning for symptomatic heeltap infection urine culture finalized with resistant E. coli and Proteus. On today's evaluation that is 10/21/2023, Patient is afebrile patient is currently on 2 L nasal oxygen and denies having any shortness of breath, the patient denies any chest pain or cough, the patient denies any nausea vomiting did not have any abdominal pain and no diarrhea, patient has been to the right heel wound area. Patient did have a creatinine of 2.1 however CBC was done today Objective - Vital Signs Vital signs: Vital Signs Temp 97.7 F 10/21/23 07:05 Pulse 72 10/21/23 07:05 Resp 14 10/21/23 07:05 BP 150/88 10/21/23 07:05 Pulse Ox 98 10/21/23 07:05 FiO2 Intake & Output 10/20/23 10/21/23 10/21/23 18:59 06:59 18:59 Intake Total 240 Output Total 950 2600 Balance -950 -2600 240 Intake: Oral 240 Output: Urine 950 2600 Other: Voiding Method Indwelling Catheter Indwelling Catheter Indwelling Catheter # Bowel Movements 2 - Exam GENERAL DESCRIPTION: Middle-aged female lying in bed in no distress RESPIRATORY SYSTEM: Unlabored breathing , decreased breath sounds at bases HEART: S1 S2 regular rate and rhythm , ABDOMEN: Soft , no tenderness EXTREMITIES: Right heel wound is currently dressed - Labs CBC & Chem 7: 10/19/23 11:46 10/21/23 03:07 Labs: Abnormal Lab Results - Last 24 Hours (Table) 10/20/23 10/20/23 10/21/23 Range/Units 16:46 20:14 03:07 Carbon Dioxide 33.0 H (21.6-31.8) mmol/L BUN 46.3 H (9.0-27.0) mg/dL Creatinine 2.1 H (0.6-1.5) mg/dL Est GFR (CKD-EPI) 27 L (>=60) BUN/Creatinine Ratio 22.05 H (12.00-20.00) Ratio POC Glucose (mg/dL) 201 H 182 H (70-110) mg/dL Calcium 7.7 L (8.7-10.3) mg/dL 10/20/ Range/Units 11:48 Carbon Dioxide (21.6-31.8) mmol/L BUN (9.0-27.0) mg/dL Creatinine (0.6-1.5) mg/dL Est GFR (CKD-EPI) (>=60) BUN/Creatinine Ratio (12.00-20.00) Ratio POC Glucose (mg/dL) 134 H (70-110) mg/dL Calcium (8.7-10.3) mg/dL Assessment and Plan (1) Pressure ulcer of right heel, stage 3 Status: Acute Code(s): L89.613 - PRESSURE ULCER OF RIGHT HEEL, STAGE 3 SNOMED Code(s): 45980409388490 (2) Type 2 diabetes mellitus with foot ulcer Status: Acute Code(s): E11.621 - TYPE 2 DIABETES MELLITUS WITH FOOT ULCER; L97.509 - NON-PRESSURE CHRONIC ULCER OTH PRT UNSP FOOT W UNSP SEVERITY SNOMED Code(s): 730091754 (3) UTI (urinary tract infection) Status: Acute Code(s): N39.0 - URINARY TRACT INFECTION, SITE NOT SPECIFIED SNOMED Code(s): 44702543 Plan: 1patient presented to hospital with worsening of her kidney function and this patient also have significantly positive with some urinary symptoms of retention requiring Hays catheter placement now with urine growing drug-resistant E. coli as well as Proteus as the patient was significantly hypothermic on admission a component of UTI likely 2--local wound care to the right heel wound with Aquacel silver dressing change every 48 hours and keep the area of the pressure 3-patient did have some clinical improvement and did have normalization of her temperature, patient to finish therapy with short course of oral Ceftin on discharge discussed with SINGLE [facility] SEWER for admitting team Dictation was produced using [employer] software. please excuse any grammatical, word or spelling errors. Time with Patient: Less than 30
[2023-10-22] MEDS ORDERED: ATORVASTATIN 40 MG TAB PO SCH (09:00)
--- NOTE | 2023-10-24 17:37 | CDI ---
Documentation Clarification Form Date: 10/24/2023 04:21:49 PM From: Reshma Soriano Phone: Admit Date: 10/09/2023 03:23:00 PM Patient Name: Chelle Lin Visit Number: [id number] Discharge Date: 10/21/2023 04:58:00 PM ATTENTION: The Clinical Documentation Specialists (CDI) and [facility] Coding Staff appreciate your assistance in clarifying documentation. Please respond to the clarification below the line at the bottom and electronically sign. The CDI & [facility] Coding staff will review the response and follow-up if needed. Please note: Queries are made part of the Legal Health Record. If you have any questions, please contact the author of this message via ITS. Dr. Best Riddle Your patient has the documented diagnosis: Mild AHFpEF patient's previously severelyHFrEF, to 55 to 60% Consult 10/09 Chronic CHF with systolic dyfx H&P and throughout Progress Notes Additional information regarding the type of CHF is requested. History/Risk Factors: 58yo F, ATN, E. coli sepsis, Hyperkalemia, metabolic acidosis, rectal prolapse, uncontrolled DMII w Peripheral neuropathy and CKD stage IIIB, Proteus Mirabella's UTI, PNA, vitamin D deficiency, HTN, PHTN, recent Hx PEA, anemia of CKD & GAGE, thrombocytopenia, CAD, ACCHF, ICM, Rt heel PU st 3, HLD, COPD; Hx medial and lateral malleolus Clinical Indicators: VS/Pulse OX: 97-100 Echocardiogram Results: MildlyimpairedLV function with EF between 40 to 45% with global hypokinesia. Intact mitral valve leaflets with mild to moderateMR & TR. Chest X Ray: Cardiomegaly with interstitial prominence and possible trace bilateral pleural effusions. There is a stable LLL consolidation and/oratelectasis. Viralpanel negative forinfluenza,RSV,COVID. Treatment: Transition IV Lasix to oral Bumex 1 mg 2x daily. Daily weights, accurate I&O, andmonitoringof kidney function. Continue current cardiac medications: Asp 81 mg daily, decrease Lipitor to 40 mg daily, Plavix 75 mg daily, Farxiga 10 mg daily hydralazine 25 mg 2x daily. Patient is not on beta- satnam. Patient is cleared for discharge from cardiology and mayfollow-upin the office withDr. Gtz 1 to 2 weeks. In your professional opinion, can you please clarify the type of CHF if known? [ xx ] Acute on Chronic Systolic Heart Failure (reduced EF) [ ] Acute on Chronic Diastolic Heart Failure (preserved EF) [ ] Acute on Chronic Heart Failure Systolic & Diastolic Heart Failure [ ] Other, please specify [ ] Unable to determine (Template Last Revised: May 2020) MTDD
--- NOTE | 2023-10-24 17:39 | CDI ---
Documentation Clarification Form Date: 10/24/2023 05:12:00 PM From: Reshma Soriano Phone: Admit Date: 10/09/2023 03:23:00 PM Patient Name: Chelle Lin Visit Number: [id number] Discharge Date: 10/21/2023 04:58:00 PM ATTENTION: The Clinical Documentation Specialists (CDI) and [facility] Coding Staff appreciate your assistance in clarifying documentation. Please respond to the clarification below the line at the bottom and electronically sign. The CDI & [facility] Coding staff will review the response and follow-up if needed. Please note: Queries are made part of the Legal Health Record. If you have any questions, please contact the author of this message via ITS. Dr. Brandon Colón There is documentation of: Right heel stage III pressure ulcerand bilateral heelulcersPer H&P Diabetic foot ulcerationWagner grade 3 per Consult 10/13 and 10/15 Chronic leg wounds; wounds on her leg and heelulcers per Consult 10/09 and 10/16 Clarification regarding the etiology of the wound is requested. Patient history/risk factors: 58yo F, ATN, E. coli sepsis, Hyperkalemia, metabolic acidosis, rectal prolapse, uncontrolled DMII w Peripheral neuropathy and CKD stage IIIB, Proteus Mirabella UTI, PNA, vitamin D deficiency, HTN, PHTN, recent Hx PEA, anemia of CKD & GAGE, thrombocytopenia, CAD, ACCHF, ICM, Rt heel PU st 3, HLD, COPD; Hx medial and lateral malleolus Clinical Indicators: Bilateralheel ulcers bandaged Per H&P and multi Progress Notes Chronic leg wounds Consult 10/09 and Hx Notes XR ankle complete RT Severeatherosclerosisof the arterial vasculature. Treatment: Right heel stage III continue local wound care withaquacelID following. Consults: Dr Subramanian patient currently with Rocephin 1 g daily and monitor clinical course closely. Localwoundcare to the right heelwoundwith Aquacel silverdressing change every 48 hours and keep the area of thepressure Please clarify the etiology and severity of bilateral heel and bilateral leg wounds, please select all/any that apply: Right heel Etiology: [ ] Pressure ulcer [ x ] Non-pressure chronic ulcer due to diabetes [ ] Non-pressure chronic ulcer due to arterial insufficiency [ ] Non-pressure chronic ulcer due to trauma [ ] Other, Please specify [ ] Unable to determine Left Heel Etiology: [ x] Non-pressure chronic ulcer due to diabetes [ ] Non-pressure chronic ulcer due to arterial insufficiency [ ] Other, Please specify [ ] Unable to determine Left Heel Severity: [ ] Limited to breakdown of skin [ ] With fat layer exposed [ ] Other, Please specify [ x ] Unable to determine Left Leg Etiology: [ x ] Non-pressure chronic ulcer due to diabetes [ ] Non-pressure chronic ulcer due to arterial insufficiency [ ] Other, Please specify [ ] Unable to determine Left Leg Severity: [ ] Limited to breakdown of skin [ ] With fat layer exposed [ ] Other, Please specify [ x ] Unable to determine . Right Leg Etiology: [x ] Non-pressure chronic ulcer due to diabetes [ ] Non-pressure chronic ulcer due to arterial insufficiency [ ] Other, Please specify [ ] Unable to determine Right Leg Severity: [ ] Limited to breakdown of skin [ ] With fat layer exposed [ ] Other, Please specify [ x ] Unable to determine (Template Last Revised: June 2020) MTDD
--- NOTE | 2023-10-24 17:51 | CDI ---
Documentation Clarification Form Date: 10/24/2023 05:40:22 PM From: Reshma Soriano Phone: Admit Date: 10/09/2023 03:23:00 PM Patient Name: Chelle Lin Visit Number: [id number] Discharge Date: 10/21/2023 04:58:00 PM ATTENTION: The Clinical Documentation Specialists (CDI) and [facility] Coding Staff appreciate your assistance in clarifying documentation. Please respond to the clarification below the line at the bottom and electronically sign. The CDI & [facility] Coding staff will review the response and follow-up if needed. Please note: Queries are made part of the Legal Health Record. If you have any questions, please contact the author of this message via ITS. Dr. Brandon Colón UTI is documented per ED Note and patient has Hays. Additional clarification regarding the etiology of the UTI is requested. History/Risk Factors: 58yo F, ATN, E. coli sepsis, Hyperkalemia, metabolic acidosis, rectal prolapse, uncontrolled DMII w peripheral neuropathy and CKD stage IIIB, Proteus Mirabella's UTI, PNA, vitamin D deficiency, HTN, PHTN, recent Hx PEA, anemia of CKD & GAGE, thrombocytopenia, CAD, ACCHF, ICM, BLE ulcers, HLD, COPD; Hx medial and lateral malleolus Clinical Indicators: Urinalysis: turbid with large blood large leukocyte esterase andelevated RBCs and WBCs. Gross hematuria Urine culture: drug-resistantE. coli andProteus mirabilis Lab results: WBC 4.3 (3.8-10.6) k/uL; RBC 2.81 L (3.80-5.40) m/uL Treatment: IV Rocephin Please clarify the etiology of the UTI, if known: [ x ] Hays catheter [ ] Suprapubic catheter [ ] UTI not related to catheter/urostomy [ ] Other condition, please specify [ ] Unable to determine (Template Last Revised: June 2020) CHAZD
--- NOTE | 2023-10-24 18:02 | CDI ---
Documentation Clarification Form Date: 10/24/2023 05:52:32 PM From: Reshma Soriano Phone: Admit Date: 10/09/2023 03:23:00 PM Patient Name: Chelle Lin Visit Number: [id number] Discharge Date: 10/21/2023 04:58:00 PM ATTENTION: The Clinical Documentation Specialists (CDI) and [facility] Coding Staff appreciate your assistance in clarifying documentation. Please respond to the clarification below the line at the bottom and electronically sign. The CDI & [facility] Coding staff will review the response and follow-up if needed. Please note: Queries are made part of the Legal Health Record. If you have any questions, please contact the author of this message via ITS. Dr. Brandon Colón Your patient has an abnormal lab value: random glucose 208. Please clarify if there is an additional diagnosis and/or clinical significance related to this value. History/Risk Factors: : 58yo F, ATN, E. coli sepsis, Hyperkalemia, metabolic acidosis, rectal prolapse, uncontrolled DMII w peripheral neuropathy and CKD stage IIIB, Proteus Mirabella's UTI, PNA, vitamin D deficiency, HTN, PHTN, recent Hx PEA, anemia of CKD & GAGE, thrombocytopenia, CAD, ACCHF, ICM, BLE ulcers, HLD, COPD; Hx medial and lateral malleolus Clinical indicators: Glucose: 6/33040 10/09 70-135 10/10 109-208 10/11 138-208 A1C12.1 per H&P A1C6.4 per Lab Results Treatment: Insulin sliding scale for blood sugar control. Continue with home medications andfollow-upclosely. Home DM medications: Dapagliflozin Propanediol [Farxiga] 5 mg PO DAILY Is there an additional diagnosis and/or clinical significance related to the above lab result/information? [ x ] Type 2 diabetes mellitus with hyperglycemia [ ] No additional diagnosis/Not clinically significant [ ] Other, please specify [ ] Unable to determine (Template Last Revised: May 2020) MTDD
== END 2023-10-21 16:58 | DRG 698 ==
LOC: EC 10:18 → 2SICU 15:23 → 3SCARD 10-11 18:13 → 4SSUR 10-17 11:11
PROVIDERS: ADMIT Internal Medicine; ATTEND Internal Medicine
PROC: 3E043XZ Introduction of Vasopressor into Central Vein, Percutaneous Approach (ICD-10-PCS; 2023-10-09)
PROC: 06HY33Z Insertion of Infusion Device into Lower Vein, Percutaneous Approach (ICD-10-PCS; principal; 2023-10-18)
PROC: 0D9670Z Drainage of Stomach with Drainage Device, Via Natural or Artificial Opening (ICD-10-PCS; 2023-10-18)
DX: T83.511A Infection and inflammatory reaction due to indwelling urethral catheter, initial encounter (principal); A41.51 Sepsis due to Escherichia coli [E. coli]; G93.41 Metabolic encephalopathy; N17.0 Acute kidney failure with tubular necrosis; R65.21 Severe sepsis with septic shock; J96.01 Acute respiratory failure with hypoxia; I50.23 Acute on chronic systolic (congestive) heart failure; I13.0 Hypertensive heart and chronic kidney disease with heart failure and stage 1 through stage 4 chronic kidney disease, or unspecified chronic kidney disease; E87.20 Acidosis, unspecified; E87.0 Hyperosmolality and hypernatremia; Z16.24 Resistance to multiple antibiotics; L97.415 Non-pressure chronic ulcer of right heel and midfoot with muscle involvement without evidence of necrosis; L97.429 Non-pressure chronic ulcer of left heel and midfoot with unspecified severity; L97.929 Non-pressure chronic ulcer of unspecified part of left lower leg with unspecified severity; L97.919 Non-pressure chronic ulcer of unspecified part of right lower leg with unspecified severity; J98.11 Atelectasis; I27.20 Pulmonary hypertension, unspecified; D69.6 Thrombocytopenia, unspecified; E11.610 Type 2 diabetes mellitus with diabetic neuropathic arthropathy; E11.42 Type 2 diabetes mellitus with diabetic polyneuropathy; E11.22 Type 2 diabetes mellitus with diabetic chronic kidney disease; N18.32 Chronic kidney disease, stage 3b; J44.9 Chronic obstructive pulmonary disease, unspecified; E11.621 Type 2 diabetes mellitus with foot ulcer; Z79.02 Long term (current) use of antithrombotics/antiplatelets; Z86.74 Personal history of sudden cardiac arrest; D63.1 Anemia in chronic kidney disease; E11.622 Type 2 diabetes mellitus with other skin ulcer; E11.65 Type 2 diabetes mellitus with hyperglycemia; D50.9 Iron deficiency anemia, unspecified; N39.0 Urinary tract infection, site not specified; Z53.8 Procedure and treatment not carried out for other reasons; I08.1 Rheumatic disorders of both mitral and tricuspid valves; E87.5 Hyperkalemia; E78.5 Hyperlipidemia, unspecified; K62.3 Rectal prolapse; E55.9 Vitamin D deficiency, unspecified; R31.0 Gross hematuria; E86.0 Dehydration; R00.1 Bradycardia, unspecified; E87.6 Hypokalemia; D75.89 Other specified diseases of blood and blood-forming organs; I25.10 Atherosclerotic heart disease of native coronary artery without angina pectoris; I25.5 Ischemic cardiomyopathy; S82.51XA Displaced fracture of medial malleolus of right tibia, initial encounter for closed fracture; B96.20 Unspecified Escherichia coli [E. coli] as the cause of diseases classified elsewhere; R33.9 Retention of urine, unspecified; B96.4 Proteus (mirabilis) (morganii) as the cause of diseases classified elsewhere; Y73.1 Therapeutic (nonsurgical) and rehabilitative gastroenterology and urology devices associated with adverse incidents; Z96.641 Presence of right artificial hip joint; Z79.84 Long term (current) use of oral hypoglycemic drugs; Z79.82 Long term (current) use of aspirin; Z95.5 Presence of coronary angioplasty implant and graft; Z87.891 Personal history of nicotine dependence; Z91.81 History of falling; Z79.899 Other long term (current) drug therapy; I25.2 Old myocardial infarction; Z11.52 Encounter for screening for COVID-19; Z87.440 Personal history of urinary (tract) infections; Z87.19 Personal history of other diseases of the digestive system
CPT/HCPCS: 36415; 36556; 71045; 71046; 76770; 80048; 80053; 80069; 81001; 82306; 82330; 83036; 83605; 83735; 84100; 84132; 84145; 84439; 84443; 84481; 85025; 85027; 85610; 85730; 87040; 87077; 87086; 87186; 87636; 93005; 93308; 94640; 94760; 96361; 96365; 96366; 96367; 96368; 96375; 99291

== ENCOUNTER 2023-11-20 19:52 | Inpatient (IN) | payer MEDICARE ==
[2023-11-20 20:54] LABS: Anisocytosis Slight; Basophils % (A) 0 %; Eosinophils # (A) 0.1 k/uL (0-0.7); Eosinophils % (A) 1 %; HCT 28.9 % (34.0-46.0); HGB 8.6 gm/dL (11.4-16.0); Hypochromasia Marked; Lymphocytes # (A) 0.5 k/uL (1.0-4.8); Lymphocytes % (A) 5 %; MCH 27.5 pg (25.0-35.0); MCHC 29.7 g/dL (31.0-37.0); MCV 92.5 fL (80.0-100.0); Mean Platelet Volume 8.7; Monocytes # (A) 0.5 k/uL (0-1.0); Monocytes % (A) 6 %; Neutrophils # (A) 8.1 k/uL (1.3-7.7); Neutrophils % (A) 86 %; Platelet Count 197 k/uL (150-450); RBC 3.12 m/uL (3.80-5.40); RDW 16.5 % (11.5-15.5); WBC 9.4 k/uL (3.8-10.6)
[2023-11-20 20:59] LABS: INR 1.1 (<1.2); Partial Thromboplastin Time 25.1 sec (22.0-30.0); Prothrombin Time 11.4 sec (10.0-12.5)
[2023-11-20 21:02] LABS: ALT 13 U/L (4-34); AST 22 U/L (14-36); African American GFR (CKD) 25 (>60 ml/min/1.73 sqM); Albumin 2.9 g/dL (3.5-5.0); Alkaline Phosphatase 163 U/L (38-126); Anion Gap 5 mmol/L; Blood Urea Nitrogen 57 mg/dL (7-17); Calcium 7.8 mg/dL (8.4-10.2); Carbon Dioxide 25 mmol/L (22-30); Chloride 106 mmol/L (98-107); Glucose 214 mg/dL (74-99); Non-African American GFR(CKD) 22 (>60 ml/min/1.73 sqM); Potassium 5.3 mmol/L (3.5-5.1); Sodium 136 mmol/L (137-145); Total Bilirubin 0.3 mg/dL (0.2-1.3); Total Protein 6.9 g/dL (6.3-8.2)
[2023-11-20] MEDS: HYDROcodone/APAP 5-325MG 1 EACH TAB PO STA (21:17)
--- NOTE | 2023-11-20 21:22 | XR ---
EXAMINATION TYPE: XR chest 2V DATE OF EXAM: 11/20/2023 8:49 PM CLINICAL INDICATION:Female, 58 years old with history of difficulty breathing; COMPARISON: Chest radiographs from 10/12/2023 TECHNIQUE: XR chest 2V Frontal view of the chest. FINDINGS: Lungs/Pleura: There is no evidence of pleural effusion, focal consolidation, or pneumothorax. Pulmonary vascularity: Unremarkable. Heart/mediastinum: Cardiomediastinal silhouette is unremarkable. Musculoskeletal: No acute osseous pathology. Other findings: None IMPRESSION: Low lung volumes with a generalized hazy appearance which could represent atelectasis versus pulmonar y edema.
[2023-11-20 21:34] LABS: NT-Pro-B-Type Natriuretic Pept 33100 pg/mL
[2023-11-20] MEDS: FUROSEMIDE 10 MG/ML 4 ML VIAL IV STA ×2 (21:46→22:21)
[2023-11-20] MEDS ORDERED: ACETAMINOPHEN TAB 325 MG TAB PO PRN (22:01)
[2023-11-20] MEDS ORDERED: NALOXONE 0.4 MG/ML 1 ML VIAL IV PRN (22:01)
--- NOTE | 2023-11-20 22:03 | ED ---
SOB HPI - General Chief Complaint: Shortness of Breath Stated Complaint: SOB, water retention Time Seen by Provider: 11/20/23 20:16 Source: patient Mode of arrival: EMS Limitations: no limitations - History of Present Illness Initial Comments: 58-year-old female with history of diabetes, hypertension, hyperlipidemia, CKD congestive heart failure presenting with chief complaint of shortness of breath. Patient is somewhat report historian. She has been experiencing "swelling all over". This is causing some pain as that is making her skin feels very tight. She wears 2 L of oxygen at baseline, has not required increased demand. She denies any cough, congestion, sore throat, fever, chills. No nausea vomiting or abdominal pain. No chest pain. - Related Data Home Medications Medication Instructions Recorded Confirmed Darbepoetin Frantz [Aranesp] 40 mcg SQ SA 10/09/23 10/09/23 Healthshake 1 dose PO BID 10/09/23 10/09/23 Ipratropium-Albuterol Nebulize 3 ml INHALATION RT-Q6H PRN 10/09/23 10/09/23 [Duoneb 0.5 mg-3 mg/3 ml Soln] Multivitamins, Thera [Multivitamin 1 tab PO DAILY 10/09/23 10/09/23 (formulary)] Previous Rx's Medication Instructions Recorded Aspirin 81 mg PO DAILY 90 Days #90 tab 06/25/23 Acetaminophen Tab [Tylenol] 650 mg PO Q6HR PRN tab 09/27/23 Clopidogrel [Plavix] 75 mg PO DAILY tab 09/27/23 Docusate [Colace] 100 mg PO BID cap 09/27/23 Fluticasone Nasal Bryant [Flonase 2 spray EA NOSTRIL DAILY ml 09/27/23 Nasal Bryant] Folic Acid 1 mg PO DAILY tab 09/27/23 Lidocaine 4% Patch 1 patch TOPICAL DAILY patch 09/27/23 Melatonin 5 mg PO HS tab 09/27/23 Thiamine [Vitamin B-1] 100 mg PO DAILY tab 09/27/23 rOPINIRole HCL [Requip] 1 mg PO HS PRN tab 09/27/23 Atorvastatin [Lipitor] 40 mg PO DAILY tab 10/21/23 Bumetanide [BUMEX] 1 mg PO BID@0900,1600 tab 10/21/23 Calcium Acetate [PhosLo] 667 mg PO TID-W/MEALS tab 10/21/23 Cholecalciferol [Vitamin D3 (25 25 mcg PO DAILY tab 10/21/23 Mcg = 1000 Iu)] Clotrimazole Cream [Lotrimin Cream] 1 applic TOPICAL BID each 10/21/23 Dapagliflozin Propanediol [Farxiga] 10 mg PO DAILY tab 10/21/23 HYDROcodone/APAP 5-325MG [Boelus 1 each PO Q6HR PRN #4 tab 10/21/23 5-325] Heparin Sodium,Porcine (1 ml) 5,000 unit SQ Q12HR each 10/21/23 [Heparin Sodium] INSULIN ASPART (NovoLOG) [NovoLOG 0 unit SQ ACHS each 10/21/23 (formulary)] Levothyroxine Sodium [Synthroid] 75 mcg PO DAILY@0630 tab 10/21/23 Pantoprazole Sodium [Protonix] 40 mg PO DAILY #30 tab 10/21/23 cefUROXime axetiL [Ceftin] 500 mg PO BID 5 Days #10 tab 10/21/23 hydrALAZINE HCL [Apresoline] 25 mg PO BID tab 10/21/23 Allergies Allergy/AdvReac Type Severity Reaction Status Date / Time No Known Allergies Allergy Verified 11/20/23 20:00 Review of Systems ROS Statement: Those systems with pertinent positive or pertinent negative responses have been documented in the HPI. ROS Other: All systems not noted in ROS Statement are negative. Past Medical History Past Medical History: Diabetes Mellitus, Hyperlipidemia, Hypertension, Renal Disease Additional Past Medical History / Comment(s): restless leg, neurothopy, Guillain-Essex, dialysis History of Any Multi-Drug Resistant Organisms: None Reported Past Surgical History: Orthopedic Surgery, Tonsillectomy Additional Past Surgical History / Comment(s): "plate in left leg to straighten leg as a child" - plate removed, right total hip replacement due to a fracture from a fall, dialysis Past Anesthesia/Blood Transfusion Reactions: No Reported Reaction Past Psychological History: No Psychological Hx Reported Smoking Status: Former smoker Past Alcohol Use History: None Reported Past Drug Use History: None Reported General Exam Limitations: no limitations General appearance: alert, in no apparent distress Head exam: Present: atraumatic, normocephalic Eye exam: Present: normal appearance, EOMI Neck exam: Present: normal inspection. Absent: meningismus Respiratory exam: Present: normal lung sounds bilaterally. Absent: respiratory distress, wheezes, rales, rhonchi, stridor Cardiovascular Exam: Present: regular rate, normal rhythm, normal heart sounds. Absent: systolic murmur, diastolic murmur, rubs, gallop, clicks Extremities exam: Present: pedal edema Neurological exam: Present: alert, oriented X3 Psychiatric exam: Present: normal affect, normal mood Skin exam: Present: warm, dry Course Vital Signs 11/20/23 11/20/23 11/20/23 19:55 20:00 20:47 Temperature 97.8 F Pulse Rate 82 82 Respiratory 22 28 H 22 Rate Blood Pressure 139/77 134/103 O2 Sat by Pulse 96 96 Oximetry 11/20/23 11/20/23 11/20/23 21:00 22:00 22:27 Temperature Pulse Rate 79 81 82 Respiratory 24 14 Rate Blood Pressure 139/77 122/66 O2 Sat by Pulse 99 99 Oximetry 11/20/23 11/20/23 11/21/23 22:42 23:00 00:00 Temperature Pulse Rate 85 93 98 Respiratory 14 18 Rate Blood Pressure 132/82 138/81 O2 Sat by Pulse 97 97 Oximetry 11/21/23 00:23 Temperature Pulse Rate 83 Respiratory 14 Rate Blood Pressure 138/78 O2 Sat by Pulse 96 Oximetry Medical Decision Making - Medical Decision Making Was pt. sent in by a medical professional or institution (, PA, SPLUNK DEVELOPER, urgent care, hospital, or longterm...) When possible be specific @ -No Did you speak to anyone other than the patient for history (EMS, parent, family, police, friend...)? What history was obtained from this source @ -No Did you review nursing and triage notes (agree or disagree)? Why? @ -I reviewed and agree with nursing and triage notes Were old charts reviewed (outside hosp., previous admission, EMS record, old EKG, old radiological studies, urgent care reports/EKG's, longterm records)? Report findings @ -No old charts were reviewed Differential Diagnosis (chest pain, altered mental status, abdominal pain women, abdominal pain men, vaginal bleeding, weakness, fever, dyspnea, syncope, headache, dizziness, GI bleed, back pain, seizure, CVA, palpatations, mental hea lth, musculoskeletal)? @ -MDM Differential Dyspnea: Coronary syndrome, arrhythmia, tamponade, asthma, COPD, pulmonary embolism, pneumonia, pneumothorax, pulmonary effusion, anaphylaxis, diabetic ketoacidosis, flailed chest, pulmonary contusion, diaphragmatic rupture, anemia, neuromuscular this is not meant to be an all-inclusive list. EKG interpreted by me (3pts min.). @ -EKG shows sinus rhythm ventricular rate 80. LA interval 128. QRS 80. QT 374. QTc 410. X-rays interpreted by me (1pt min.). @ -Chest x-ray shows low lung volumes with the generalized hazy appearance which could represent atelectasis versus pulmonary edema CT interpreted by me (1pt min.). @ -None done U/S interpreted by me (1pt. min.). @ -None done What testing was considered but not performed or refused? (CT, X-rays, U/S, labs)? Why? @ -None What meds were considered but not given or refused? Why? @ -None Did you discuss the management of the patient with other professionals (professionals i.e. , PA, SPLUNK DEVELOPER, lab, RT, psych nurse, social media community manager, mammography supervisor, teacher, student officer, director of casework)? Give summary @ -Spoke with Dr. Mina who accepted admission. He advised placing the patient on Lasix 80 mg twice daily and nephrology consult Was smoking cessation discussed for >3mins.? @ -No Was critical care preformed (if so, how long)? @ -No Were there social determinants of health that impacted care today? How? (Homelessness, low income, unemployed, alcoholism, drug addiction, transportation, low edu. Level, literacy, decrease access to med. care, long-term, rehab)? @ -No Was there de-escalation of care discussed even if they declined (Discuss DNR or withdrawal of care, Hospice)? DNR status @ -No What co-morbidities impacted this encounter? (DM, HTN, Smoking, COPD, CAD, Cancer, CVA, ARF, Chemo, Hep., AIDS, mental health diagnosis, sleep apnea, morbid obesity)? @ -CHF, diabetes, hypertension, hyperlipidemia Was patient admitted / discharged? Hospital course, mention meds given and route, prescriptions, significant lab abnormalities, going to OR and other pertinent info. @ -58-year-old female presenting with chief complaint of dyspnea and "swelling all over. Patient does have 4+ pitting edema to lower extremities. Chest x-ray consistent with pulmonary edema and BNP is 33,100. BUN 57 and creatinine 2.37, history of CKD. Potassium is 5.3, patient ordered albuterol and insulin with glucose. 80 mg of Lasix given. Patient will be admitted. She is agreeable with this plan. I discussed this case with my attending Dr. Gusman Undiagnosed new problem with uncertain prognosis? @ -No Drug Therapy requiring intensive monitoring for toxicity (Heparin, Nitro, Insulin, Cardizem)? @ -No Were any procedures done? @ -No Diagnosis/symptom? @ -CHF exacerbation Acute, or Chronic, or Acute on Chronic? @ -Acute Uncomplicated (without systemic symptoms) or Complicated (systemic symptoms)? @ -Complicated Side effects of treatment? @ -No Exacerbation, Progression, or Severe Exacerbation? @ -Exacerbation Poses a threat to life or bodily function? How? (Chest pain, [place], [place], pneumonia, PE, COPD, DKA, ARF, appy, cholecystitis, CVA, Diverticulitis, Homicidal, Suicidal, threat to staff... and all critical care pts) @ -Yes - Lab Data Result diagrams: 11/20/23 20:40 11/21/23 01:18 Lab Results 11/20/23 11/20/23 11/20/23 Range/Units 20:40 20:40 20:40 WBC 9.4 (3.8-10.6) k/uL RBC 3.12 L (3.80-5.40) m/uL Hgb 8.6 L (11.4-16.0) gm/dL Hct 28.9 L (34.0-46.0) % MCV 92.5 (80.0-100.0) fL MCH 27.5 (25.0-35.0) pg MCHC 29.7 L (31.0-37.0) g/dL RDW 16.5 H (11.5-15.5) % Plt Count 197 (150-450) k/uL MPV 8.7 Neutrophils % 86 % Lymphocytes % 5 % Monocytes % 6 % Eosinophils % 1 % Basophils % 0 % Neutrophils # 8.1 H (1.3-7.7) k/uL Lymphocytes # 0.5 L (1.0-4.8) k/uL Monocytes # 0.5 (0-1.0) k/uL Eosinophils # 0.1 (0-0.7) k/uL Basophils # 0.0 (0-0.2) k/uL Hypochromasia Marked Anisocytosis Slight PT 11.4 (10.0-12.5) sec INR 1.1 (<1.2) APTT 25.1 (22.0-30.0) sec Sodium 136 L (137-145) mmol/L Potassium 5.3 H (3.5-5.1) mmol/L Chloride 106 (98-107) mmol/L Carbon Dioxide 25 (22-30) mmol/L Anion Gap 5 mmol/L BUN 57 H (7-17) mg/dL Creatinine 2.37 H (0.52-1.04) mg/dL Est GFR (CKD-EPI)AfAm 25 (>60 ml/min/1.73 sqM) Est GFR (CKD-EPI)NonAf 22 (>60 ml/min/1.73 sqM) Glucose 214 H (74-99) mg/dL POC Glucose (mg/dL) (70-110) mg/dL POC Glu Senior Project Coordinator ID Calcium 7.8 L (8.4-10.2) mg/dL Total Bilirubin 0.3 (0.2-1.3) mg/dL AST 22 (14-36) U/L ALT 13 (4-34) U/L Alkaline Phosphatase 163 H (38-126) U/L Troponin I (0.000-0.034) ng/mL NT-Pro-B Natriuret Pep 77774 pg/mL Total Protein 6.9 (6.3-8.2) g/dL Albumin 2.9 L (3.5-5.0) g/dL 11/20/23 11/20/23 11/20/23 Range/Units 20:40 22:21 23:39 WBC (3.8-10.6) k/uL RBC (3.80-5.40) m/uL Hgb (11.4-16.0) gm/dL Hct (34.0-46.0) % MCV (80.0-100.0) fL MCH (25.0-35.0) pg MCHC (31.0-37.0) g/dL RDW (11.5-15.5) % Plt Count (150-450) k/uL MPV Neutrophils % % Lymphocytes % % Monocytes % % Eosinophils % % Basophils % % Neutrophils # (1.3-7.7) k/uL Lymphocytes # (1.0-4.8) k/uL Monocytes # (0-1.0) k/uL Eosinophils # (0-0.7) k/uL Basophils # (0-0.2) k/uL Hypochromasia Anisocytosis PT (10.0-12.5) sec INR (<1.2) APTT (22.0-30.0) sec Sodium (137-145) mmol/L Potassium (3.5-5.1) mmol/L Chloride (98-107) mmol/L Carbon Dioxide (22-30) mmol/L Anion Gap mmol/L BUN (7-17) mg/dL Creatinine (0.52-1.04) mg/dL Est GFR (CKD-EPI)AfAm (>60 ml/min/1.73 sqM) Est GFR (CKD-EPI)NonAf (>60 ml/min/1.73 sqM) Glucose (74-99) mg/dL POC Glucose (mg/dL) 181 H 117 H (70-110) mg/dL POC Glu Senior Project Coordinator ID Nahomi Leon Meli [place] Calcium (8.4-10.2) mg/dL Total Bilirubin (0.2-1.3) mg/dL AST (14-36) U/L ALT (4-34) U/L Alkaline Phosphatase (38-126) U/L Troponin I <0.012 (0.000-0.034) ng/mL NT-Pro-B Natriuret Pep pg/mL Total Protein (6.3-8.2) g/dL Albumin (3.5-5.0) g/dL Disposition Clinical Impression: CHF (congestive heart failure) Disposition: ADMITTED IP TO THIS HOSP Condition: Fair Time of Disposition: 22:03
[2023-11-20 22:23] LABS: Glucose,Whole Blood 181 mg/dL (70-110)
[2023-11-20] MEDS: INSULIN REGULAR 100 UNIT/ML VIAL (IV) IV ONE (22:26)
[2023-11-20] MEDS: ALBUTEROL NEB (CONC) 2.5 MG/0.5 ML INHALATION ONE (22:26)
[2023-11-20] MEDS: DEXTROSE 50% SYRINGE 50 ML IVP ONE (22:28)
[2023-11-20] MEDS ORDERED: DEXTROSE 50% SYRINGE 50 ML IVP PRN ×2 (23:17)
[2023-11-20 23:41] LABS: Glucose,Whole Blood 117 mg/dL (70-110)
[2023-11-21] MEDS: MORPHINE SULFATE 4 MG/ML SYRINGE IV PRN (01:43)
[2023-11-21] MEDS ORDERED: ACETAMINOPHEN TAB 325 MG TAB PO PRN (02:18)
[2023-11-21] MEDS: HYDROcodone/APAP 5-325MG 1 EACH TAB PO PRN (03:50)
[2023-11-21 06:24] LABS: Glucose,Whole Blood 110 mg/dL (70-110)
[2023-11-21] MEDS: INSULIN ASPART (NovoLOG) 100 UNIT/ML VIAL SQ SCH (06:28)
[2023-11-21] MEDS: LEVOTHYROXINE 75 MCG TAB PO SCH (06:41)
[2023-11-21] MEDS: CALCIUM ACETATE 667 MG TAB PO SCH (06:41)
[2023-11-21 08:34] LABS: BUN/Creat Ratio 22.64 Ratio (12.00-20.00); Blood Urea Nitrogen 56.6 mg/dL (9.0-27.0); Glucose 93 mg/dL (70-110)
[2023-11-21 08:35] LABS: ALT 14 U/L (8-44); AST 15 U/L (13-35); Albumin 2.8 g/dL (3.8-4.9); Albumin/Globulin Ratio 0.72 Ratio (1.60-3.17); Alkaline Phosphatase 174 U/L (41-126); Calcium 7.7 mg/dL (8.7-10.3); Carbon Dioxide 24.2 mmol/L (21.6-31.8); Chloride 103 mmol/L (96-109); Globulin 3.9 g/dL (1.6-3.3); Potassium 5.1 mmol/L (3.5-5.5); Sodium 138 mmol/L (135-145); Total Bilirubin 0.2 mg/dL (0.3-1.2); Total Protein 6.7 g/dL (6.2-8.2)
[2023-11-21] MEDS: ATORVASTATIN 40 MG TAB PO SCH (08:37)
[2023-11-21] MEDS: CHOLECALCIFEROL 25 MCG (1000 IU) TABLET PO SCH (08:37)
[2023-11-21] MEDS: MULTIVITAMINS, THERA 1 EACH TAB PO SCH (08:37)
[2023-11-21] MEDS: FOLIC ACID 1 MG TAB PO SCH (08:37)
[2023-11-21] MEDS: ASPIRIN 81 MG PO SCH (08:37)
[2023-11-21] MEDS: CLOPIDOGREL 75 MG TAB PO SCH (08:37)
[2023-11-21] MEDS: DAPAGLIFLOZIN PROPANEDIOL 10 MG TABLET PO SCH (08:37)
[2023-11-21] MEDS: DOCUSATE 100 MG CAP PO SCH (08:38)
[2023-11-21] MEDS: PANTOPRAZOLE 40 MG TABLET PO SCH (08:38)
[2023-11-21] MEDS: hydrALAZINE HCL 25 MG TAB PO SCH (08:38)
[2023-11-21] MEDS: THIAMINE 100 MG TAB PO SCH (08:38)
[2023-11-21] MEDS: HEPARIN SODIUM,PORCINE 5,000 UNIT/ML 1 ML VIAL SQ SCH (08:38)
[2023-11-21] MEDS: FUROSEMIDE 10 MG/ML 10 ML VIAL IV SCH (08:38)
[2023-11-21 08:41] LABS: Basophils # (A) 0.05 X 10*3/uL (0.00-0.10); Basophils % (A) 0.5 %; Eosinophils # (A) 0.13 X 10*3/uL (0.04-0.35); Eosinophils % (A) 1.2 %; HCT 27.5 % (37.2-46.3); HGB 7.9 g/dL (12.0-15.0); Lymphocytes # (A) 0.76 X 10*3/uL (0.90-5.00); Lymphocytes % (A) 7.1 %; MCH 26.9 pg (27.0-32.0); MCHC 28.7 g/dL (32.0-37.0); MCV 93.5 FL (80.0-97.0); Mean Platelet Volume 11.3 FL (9.5-12.2); Monocytes # (A) 0.74 X 10*3/uL (0.20-1.00); Monocytes % (A) 6.9 %; NRBC Per 100 WBC 0 X 10*3/uL (0.00-0.01); Neutrophils # (A) 9.04 X 10*3/uL (1.80-7.70); Neutrophils % (A) 83.7 %; Platelet Count 167 X 10*3/uL (140-440); RBC 2.94 X 10*6/uL (4.10-5.20); RDW 17.7 % (11.5-14.5); WBC 10.78 X 10*3/uL (4.50-10.00)
[2023-11-21] MEDS: FLUTICASONE NASAL 50MCG/SPRAY 16GM BTL EA NOSTRIL SCH (08:51)
[2023-11-21] MEDS ORDERED: NON FORMULARY DRUG (Healthshake 1 DOSE) PO SCH (09:00)
--- NOTE | 2023-11-21 10:04 | P.CRDCN ---
History of Present Illness Consult date: 11/21/23 Consult reason: congestive heart failure History of present illness: This is a 58-year-old female patient of Dr. Jose with a past medical history significant for coronary artery disease with previous stenting, cardiomyopathy, hypertension, hyperlipidemia, diabetes, severe pulmonary hypertension, COPD, and chronic kidney disease recently on hemodialysis, cardiopulmonary arrest, anoxic encephalopathy with improvement of mental status. She has history of a stent to the RCA on 05/2023. Most recently, she was hospitalized in September for acute kidney injury with creatinine of 3.72. Along with hyperkalemia, sepsis with possible UTI, fracture of the right malleolus, rectal prolapse. She was seen during that stay for asymptomatic bradycardia with no sign of high degree AV block. Patient was discharged to halfway and yesterday was found to have generalized anasarca, dyspnea at rest. She was transferred to [facility] emergency center. We have been asked to evaluate the patient for CHF. Blood pressure is 138/78, heart rate 83, pulse ox 98% on 2 and half liters nasal cannula. Patient has been started on IV Lasix 80 mg every 12 hours, nephrology is on consult as well. EKG reveals sinus mechanism, low voltage Chest xray: Low lung volumes with generalized hazy appearance which could represent atelectasis versus pulmonary edema. Laboratory data: WBC 10.7, hemoglobin 7.9, platelet count 167. Sodium 138, potassium 5.1, BUN 56 and creatinine 2.5. Alkaline phosphatase 174. Current home cardiac medications include aspirin 81 mg daily, atorvastatin 40 mg daily, Bumex 1 mg 3 times daily, Plavix 75 mg daily, Farxiga 10 mg daily, hydralazine 25 mg 2 times daily, lisinopril 2.5 mg daily. Patient is not on a beta-satnam due to bradycardia. Most recent echocardiogram obtained in 10/14/2023 reveals EF of 40 to 45% with global hypokinesia. Intact mitral valve leaflets with mild to moderate mitral regurgitation. Moderate tricuspid regurgitation.. Cardiac catheterization history: 06/24/[address] Jose revealed 70% eccentric proximal RCA disease, 80% diffuse diagonal disease which is very small vessel, j quinton not amenable to intervention. 50% proximal left circumflex disease. Mild luminal irregularities otherwise. Elevated LVEDP 18 mmHg. Patient subsequently underwent stenting of the proximal RCA performed by Dr. Riddle. REVIEW OF SYSTEMS: At the time of my exam: CONSTITUTIONAL: Denies fever or chills. HEENT: Denies blurred vision, vision changes, or eye pain. Denies hemoptysis CARDIOVASCULAR: Denies chest pain. Reports orthopnea. Denies PND. Denies palpitations. Reports edema. RESPIRATORY: Reports dyspnea on exertion, reports shortness of breath. GASTROINTESTINAL: Denies abdominal pain. Denies nausea or vomiting. HEMATOLOGIC: Denies bleeding disorders. GENITOURINARY: Denies any blood in urine. SKIN: Denies pruitis. Denies rash. PHYSICAL EXAM: VITAL SIGNS: Reviewed. GENERAL: Well-developed in no acute distress. HEENT: Head is normocephalic. Pupils are equal, round. Sclerae anicteric. Mucous membranes of the mouth are moist. Neck supple. No JVD or thyromegaly LUNGS: Respirations even and unlabored. Lungs diminished with bibasilar crackles HEART: Regular rate and rhythm. S1 and S2 heard. 3/6 systolic murmur at the base and 2/6 systolic murmur at the apex ABDOMEN: Soft. Nondistended. Nontender. EXTREMITIES: Normal range of motion. No clubbing or cyanosis. Peripheral pulses intact. Bilateral lower extremity edema noted. Right worse than left NEUROLOGIC: Awake and alert. ASSESSMENT: Acute on chronic systolic heart failure Acute kidney injury Chronic heart failure with reduced EF Coronary artery disease with recent stenting of the proximal RCA, 06/24/2023 Ischemic cardiomyopathy Chronic kidney disease stage IIIb History of renal failure requiring hemodialysis Hypertension Hyperlipidemia Diabetes mellitus type II insulin requiring History of severe pulmonary hypertension COPD Former nicotine dependence Right sided malleolus fracture Anemia of chronic disease PLAN: Continue patient on on IV Lasix 80 mg twice daily Daily weights, accurate intake and output, and monitoring of kidney function Resume patient's home cardiac medications: aspirin 81 mg daily, atorvastatin 40 mg daily, Plavix 75 mg daily, Farxiga 10 mg daily, hydralazine 25 mg 2 times daily, lisinopril 2.5 mg daily. Patient is not on a beta-satnam due to bradycardia. Further recommendations pending patient course Nurse practitioner note has been reviewed by physician. Signing provider agrees with the documented findings, assessment, and plan of care documented by [employer] as a scribe. Past Medical History Past Medical History: Diabetes Mellitus, Hyperlipidemia, Hypertension, Renal Disease Additional Past Medical History / Comment(s): restless leg, neurothopy, Guillain-[place], dialysis History of Any Multi-Drug Resistant Organisms: None Reported Past Surgical History: Orthopedic Surgery, Tonsillectomy Additional Past Surgical History / Comment(s): "plate in left leg to straighten leg as a child" - plate removed, right total hip replacement due to a fracture from a fall, dialysis Past Anesthesia/Blood Transfusion Reactions: No Reported Reaction Past Psychological History: No Psychological Hx Reported Smoking Status: Former smoker Past Alcohol Use History: None Reported Past Drug Use History: None Reported Medications and Allergies Home Medications Medication Instructions Recorded Confirmed Type Aspirin 81 mg PO DAILY 90 Days #90 tab 06/25/23 11/21/23 Rx Clopidogrel [Plavix] 75 mg PO DAILY tab 09/27/23 11/21/23 Rx Docusate [Colace] 100 mg PO BID cap 09/27/23 11/21/23 Rx Fluticasone Nasal [place] [Flonase 2 spray EA NOSTRIL DAILY ml 09/27/23 11/21/23 Rx Nasal [place]] Folic Acid 1 mg PO DAILY tab 09/27/23 11/21/23 Rx Lidocaine 4% Patch 1 patch TOPICAL DAILY patch 09/27/23 11/21/23 Rx Melatonin 5 mg PO HS tab 09/27/23 11/21/23 Rx Thiamine [Vitamin B-1] 100 mg PO DAILY tab 09/27/23 11/21/23 Rx rOPINIRole HCL [Requip] 1 mg PO HS PRN tab 09/27/23 11/21/23 Rx Darbepoetin Frantz [Aranesp] 40 mcg SQ FR 10/09/23 11/21/23 History Ipratropium-Albuterol Nebulize 3 ml INHALATION RT-Q6H PRN 10/09/23 11/21/23 History [Duoneb 0.5 mg-3 mg/3 ml Soln] Multivitamins, Thera [Multivitamin 1 tab PO DAILY@0800 10/09/23 11/21/23 History (formulary)] Atorvastatin [Lipitor] 40 mg PO DAILY tab 10/21/23 11/21/23 Rx Calcium Acetate [PhosLo] 667 mg PO TID-W/MEALS tab 10/21/23 11/21/23 Rx Cholecalciferol [Vitamin D3 (25 25 mcg PO DAILY tab 10/21/23 11/21/23 Rx Mcg = 1000 Iu)] Dapagliflozin Propanediol [Farxiga] 10 mg PO DAILY tab 10/21/23 11/21/23 Rx Heparin Sodium,Porcine (1 ml) 5,000 unit SQ Q12HR each 10/21/23 11/21/23 Rx [Heparin Sodium] Bumetanide [Bumex] 1 mg PO TID@0500,1300,2100 11/21/23 11/21/23 History Ferrous Sulfate [Feosol] 325 mg PO BID 11/21/23 11/21/23 History HYDROcodone/APAP 5-325MG [[place] 1 tab PO Q4HR PRN 11/21/23 11/21/23 History 5-325] Insulin Lispro [humaLOG Kwikpen] See Protocol SQ ACHS@06,11,16,20 11/21/23 11/21/23 History Levothyroxine Sodium [Synthroid] 75 mcg PO DAILY@0600 11/21/23 11/21/23 History Omeprazole 20 mg PO DAILY 11/21/23 11/21/23 History hydrALAZINE HCL [Apresoline] 25 mg PO BID@0800,1600 11/21/23 11/21/23 History lisinopriL [Zestril] 2.5 mg PO DAILY@0800 11/21/23 11/21/23 History Allergies Allergy/AdvReac Type Severity Reaction Status Date / Time No Known Allergies Allergy Verified 11/20/23 20:00 Physical Exam Vitals: Vital Signs Temp Pulse Pulse Pulse Resp BP BP 11/21/23 06:52 98.1 F 76 20 118/49 11/21/23 01:11 97.7 F 83 19 126/76 11/21/23 00:23 83 14 138/78 11/21/23 00:00 98 18 138/81 11/20/23 23:00 93 14 132/82 11/20/23 22:42 85 11/20/23 22:27 82 11/20/23 22:00 81 14 122/66 11/20/23 21:00 79 24 139/77 11/20/23 20:47 22 11/20/23 20:00 82 28 H 134/103 11/20/23 19:55 97.8 F 82 22 139/77 Pulse Ox 11/21/23 06:52 98 11/21/23 01:11 98 11/21/23 00:23 96 11/21/23 00:00 97 11/20/23 23:00 97 11/20/23 22:42 11/20/23 22:27 11/20/23 22:00 99 11/20/23 21:00 99 11/20/23 20:47 11/20/23 20:00 96 11/20/23 19:55 96 Intake and Output 11/20/23 11/21/23 11/21/23 22:59 06:59 14:59 Intake Total 10 Output Total 525 Balance 10 -525 Intake: IV 10 Invasive Line 1 10 Output: Urine 525 Other: Voiding Method Indwelling Catheter # Bowel Movements 1 Weight 81.647 kg 59 kg Results 11/21/23 04:28 11/21/23 04:28 Cardiac Enzymes 11/20/23 11/20/23 Range/Units 20:40 20:40 AST 22 (14-36) U/L Troponin I <0.012 (0.000-0.034) ng/mL Coagulation 11/20/23 Range/Units 20:40 PT 11.4 (10.0-12.5) sec APTT 25.1 (22.0-30.0) sec CBC 11/20/23 Range/Units 20:40 WBC 9.4 (3.8-10.6) k/uL RBC 3.12 L (3.80-5.40) m/uL Hgb 8.6 L (11.4-16.0) gm/dL Hct 28.9 L (34.0-46.0) % Plt Count 197 (150-450) k/uL Comprehensive Metabolic Panel 11/20/23 11/21/23 Range/Units 20:40 01:18 Sodium 136 L (137-145) mmol/L Potassium 5.3 H 4.9 (3.5-5.1) mmol/L Chloride 106 (98-107) mmol/L Carbon Dioxide 25 (22-30) mmol/L BUN 57 H (7-17) mg/dL Creatinine 2.37 H (0.52-1.04) mg/dL Glucose 214 H (74-99) mg/dL Calcium 7.8 L (8.4-10.2) mg/dL AST 22 (14-36) U/L ALT 13 (4-34) U/L Alkaline Phosphatase 163 H (38-126) U/L Total Protein 6.9 (6.3-8.2) g/dL Albumin 2.9 L (3.5-5.0) g/dL Current Medications Generic Name Dose Route Start Last Admin Trade Name Freq PRN Reason Stop Dose Admin Acetaminophen 650 mg 11/20/23 22:01 Acetaminophen Tab 325 Mg Tab PO Q6HR PRN Mild Pain or Fever > 100.5 Hydrocodone Bitart/Acetaminophen 1 each 11/20/23 22:01 11/21/23 03:50 Hydrocodone/Apap 5-325mg 1 Each Tab PO 1 each Q4HR PRN Administration Moderate Pain (Scale 4 to 6) Albuterol/Ipratropium 3 ml 11/21/23 02:18 Ipratropium-Albuterol 3 Ml Neb INHALATION RT-Q6H PRN Shortness Of Breath Aspirin 81 mg 11/21/23 09:00 Aspirin 81 Mg PO DAILY [facility] Atorvastatin Calcium 40 mg 11/21/23 09:00 Atorvastatin 40 Mg Tab PO DAILY [facility] Calcium Acetate 667 mg 11/21/23 07:30 11/21/23 06:41 Calcium Acetate 667 Mg Tab PO 667 mg TID-W/MEALS RYLIE Administration Cholecalciferol 25 mcg 11/21/23 09:00 Cholecalciferol 25 Mcg (1000 Iu) Tablet PO DAILY [facility] Clopidogrel Bisulfate 75 mg 11/21/23 09:00 Clopidogrel 75 Mg Tab PO DAILY [facility] Dapagliflozin 10 mg 11/21/23 09:00 Dapagliflozin Propanediol 10 Mg Tablet PO DAILY [facility] Darbepoetin Frantz 40 mcg 11/23/23 09:00 Darbepoetin Frantz 40 Mcg/0.4 Ml Syringe SQ Sa@0900 [facility] Dextrose/Water 25 ml 11/20/23 23:17 Dextrose 50% Syringe 50 Ml IVP PER PROTOCOL PRN Hypoglycemia Protocol Dextrose/Water 50 ml 11/20/23 23:17 Dextrose 50% Syringe 50 Ml IVP PER PROTOCOL PRN Hypoglycemia Protocol Docusate Sodium 100 mg 11/21/23 09:00 Docusate 100 Mg Cap PO BID [facility] Fluticasone Propionate 2 spray 11/21/23 09:00 Fluticasone Nasal 50mcg/[place] 16gm Btl EA NOSTRIL DAILY [facility] Folic Acid 1 mg 11/21/23 09:00 Folic Acid 1 Mg Tab PO DAILY [facility] Furosemide 80 mg 11/21/23 10:00 Furosemide 10 Mg/Ml 10 Ml Vial IV Q12H [facility] Heparin Sodium (Porcine) 5,000 unit 11/21/23 09:00 Heparin Sodium,Porcine 5,000 Unit/Ml 1 Ml Vial SQ Q12HR [facility] Hydralazine HCl 25 mg 11/21/23 09:00 Hydralazine Hcl 25 Mg Tab PO BID [facility] Insulin Aspart 0 unit 11/21/23 07:30 11/21/23 06:28 Insulin Aspart (Novolog) 100 Unit/Ml Vial SQ Not Given ACHS [facility] Protocol Levothyroxine Sodium 75 mcg 11/21/23 06:30 11/21/23 06:41 Levothyroxine 75 Mcg Tab PO 75 mcg DAILY@0630 [facility] Administration Melatonin 5 mg 11/21/23 21:00 Melatonin 5 Mg Tablet PO HS [facility] Morphine Sulfate 4 mg 11/20/23 22:01 11/21/23 06:08 Morphine Sulfate 4 Mg/Ml Syringe IV 4 mg Q4HR PRN Administration Severe Pain (Scale 7 to 10) Multivitamins 1 each 11/21/23 09:00 Multivitamins, Thera 1 Each Tab PO DAILY [facility] Naloxone HCl 0.2 mg 11/20/23 22:01 Naloxone 0.4 Mg/Ml 1 Ml Vial IV Q2M PRN Opioid Reversal Pantoprazole Sodium 40 mg 11/21/23 09:00 Pantoprazole 40 Mg Tablet PO DAILY [facility] Ropinirole HCl 1 mg 11/21/23 02:18 Ropinirole Hcl 1 Mg Tab PO HS PRN restless legs Thiamine HCl 100 mg 11/21/23 09:00 Thiamine 100 Mg Tab PO DAILY [facility] Intake and Output 11/20/23 11/21/23 11/21/23 22:59 06:59 14:59 Intake Total 10 Output Total 525 Balance 10 -525 Intake: IV 10 Invasive Line 1 10 Output: Urine 525 Other: Voiding Method Indwelling Catheter # Bowel Movements 1 Weight 81.647 kg 59 kg 11/20/23 20:40 11/21/23 01:18
[2023-11-21 11:21] LABS: Glucose,Whole Blood 127 mg/dL (70-110)
[2023-11-21] MEDS: ALPRAZolam 0.25 MG TAB PO PRN (13:17)
--- NOTE | 2023-11-21 13:17 | P.HPIM ---
History of Present Illness H&P Date: 11/21/23 Chief Complaint: Increase shortness of breath HISTORY OF PRESENT ILLNESS: This is a 58-year-old female with a previous medical history significant for coronary artery disease status post PCI of the RCA 2023 with ischemic cardiomyopathy, hypertension and hypertensive cardiovascular disease, hyperlipidemia, diabetes mellitus type 2 uncontrolled, chronic kidney disease stage IIIb, anemia of chronic kidney disease, history of COPD, history of severe pulmonary hypertension, history of fracture of the medial lateral malleolus, chronic wound to the right heel that has been healed, patient has been followed by [facility] [place] and she was seen yesterday on round and she was complaining of increased weight gain with increased anasarca with increased flu id in bilateral lower extremity all the way up to the thigh all the way up to the abdominal area, was complaining of increased shortness of breath, she was on 2 L nasal cannula her oxygen saturation was 99%, patient was quite anxious and frantic at the [facility], she was directed to go to the emergency department for evaluation of acute and chronic systolic heart failure with worsening renal function due to cardiorenal syndrome and consultation was placed for cardiology and nephrology. REVIEW OF SYSTEMS: Constitutional: No documented fever, no chills, no night sweats. No weight change. No weakness, fatigue or lethargy. No daytime sleepiness. EENT: No headache. No blurred vision or double vision, no loss of vision. No loss of Hearing, no ringing in the ears, no dizziness. No nasal drainage or congestion. No epistaxis. No sore throat. Lungs: No shortness of breath, no cough, no sputum production. No wheezing. Reports dyspnea with activity. Cardiovascular: No chest pain, no lower extremity edema. No palpitations. No paroxysmal nocturnal dyspnea. No orthopnea. No lightheadedness or dizziness. No syncopal episodes. Abdominal: Reports abdominal pain. No nausea, vomiting. No diarrhea. No constipation. No bloody or tarry stools reports loss of appetite. Genitourinary: No dysuria, increased frequency, urgency. No urinary retention. Musculoskeletal: No myalgias. No muscle weakness, no gait dysfunction, no frequent falls. No back pain. No neck pain. Integumentary: No wounds, no lesions. No rash or pruritus. No unusual bruising. No change in hair or nails. Neurologic: No aphasia. No facial droop. No change in mentation. No head injury. No headache. No paralysis. No paresthesia. Psychiatric: No depression. No anxiety. No mood swings. Endocrine: No abnormal blood sugars. No weight change. PAST MEDICAL HISTORY: Coronary artery disease status post PCI of the RCA in May 2023 Hypertension and hypertensive cardiovascular disease. Mixed hyperlipidemia. Diabetes mellitus type 2. Chronic kidney disease stage IIIb. Ischemic cardiomyopathy. Severe pulmonary hypertension. COPD. Guillain-[place] syndrome. Anemia of chronic kidney disease. Iron deficiency anemia. Right heel ulcer Subacute medial and lateral malleolus fracture. Restless leg syndrome. PAST SURGICAL HISTORY: History of plate placed in the left leg with hardware removal. Left total hip arthroplasty. Dialysis catheter placement and removal. SOCIAL HISTORY: Patient used to smoke about a pack every day, currently non-smoker she denies any alcohol ingestion, no drug use or abuse. FAMILY HISTORY: PHYSICAL EXAMINATION: General: 58-year-old female sitting up in bed in moderate respiratory distress. HEENT: Head is atraumatic, normocephalic, pupils were equal round reactive to light and recommendation, extraocular muscle movement were intact, sclera nonicteric, conjunctivae were pale, mucous membranes of the mouth are somewhat dry. Neck: Supple, Increased JVP, normal carotid upstroke bilaterally, no lymphadenopathy. Chest: Decreased breath sounds at the bases, few rhonchi, moderate expiratory wheezes, no chest wall tenderness, moderate intercostal retractions. Heart: First heart sound is normal, second heart sound is normal there is systolic ejection murmur 2/6 located in the left sternal border. Abdomen: Soft, nontender, nondistended, positive bowel sounds increased abdominal wall edema. Extremities: There is +3 edema no calf tenderness DP +1 bilaterally. Right ear scab. Neurologic examination: Patient is awake alert and oriented x3, cranial nerves II-12 appear grossly intact, muscle power were 3 out of 5 in upper extremities and 3 out of 5 in bilateral lower extremities, deep tendon reflexes normal bilaterally. ASSESSMENT AND PLAN: 1. Acute on chronic systolic heart failure due to ischemic cardiomyopathy, start the patient on Lasix drip 10 mg an hour as the patient is not making any urine on Lasix 80 mg IV push every 12 hours, monitor input and output and daily weight, continue hydralazine 25 mg orally twice every day, continue Farxiga 10 mg once every day, we will obtain cardiology consultation as well as pulmonary consultation for possible acute respiratory failure. 2. Acute on chronic kidney disease stage IIIb due to cardiorenal syndrome continue patient on Lasix drip at 10 mg/h, monitor the patient input and output and daily weight, check ultrasound of the kidneys rule out any hydronephrosis, nephrology consultation, avoid nephrotoxins. 3. Acute hypoxemic respiratory failure due to acute on chronic systolic heart failure as well as acute exacerbation of COPD. Continue patient on Lasix drip at 10 mg/h, continue Solu-Medrol 60 mg IV push every 8 hours, continue DuoNeb 3 manipulation 4 times every day, continue oxygen support, continue to monitor input and output and daily weight, cardiology consultation as well as pulmonary consultation 4. Coronary artery disease status post PCI of the RCA. Continue patient on aspirin 81 mg once every day, Plavix 75 mg orally, atorvastatin 40 mg orally once every day. Cardiology consultation. 5. Hypertension and hypertensive cardiovascular disease. Continue hydralazine 25 mg orally twice every day, monitor the patient blood pressure very closely. 6. Mixed hyperlipidemia. Continue patient on atorvastatin 40 mg orally, monitor lipid panel, keep LDL 55-70. 7. Diabetes mellitus type 2. Continue patient on sliding scale insulin. 8. Close leg syndrome. Continue ropinirole 1 mg orally at bedtime. 9. Anemia of chronic kidney disease. Continue patient on Aranesp 40 mcg subcutaneously every week. 10. Hypothyroidism. Continue levothyroxine 75 mcg orally once every day. 11. COPD exacerbation continue patient on DuoNeb 3 mm laceration 4 times every day, continue oxygen 2 L nasal cannula, Solu-Medrol 60 mg IVP q 8 h 12. Chronic hypoxemic respiratory failure due to combination of nonischemic cardiomyopathy and COPD. Continue oxygen 2 L nasal cannula, continue DuoNeb 3 mm residual 4 times every day. 13. Subacute fracture of the medial and lateral malleolus currently in boot no surgical intervention is planned 14. GERD. Continue pantoprazole 40 mg once every day. 15. Medical debility. Physical therapy evaluation. 16. DVT prophylaxis. Heparin 5000 units subcutaneous every 12 hours. 17. GI prophylaxis. Continue PPI. 18. Admit to inpatient. Estimated length of stay 2 midnights. 19. Full code. Past Medical History Past Medical History: Diabetes Mellitus, Hyperlipidemia, Hypertension, Renal Disease Additional Past Medical History / Comment(s): restless leg, neurothopy, Guillain-[place], dialysis History of Any Multi-Drug Resistant Organisms: None Reported Past Surgical History: Orthopedic Surgery, Tonsillectomy Additional Past Surgical History / Comment(s): "plate in left leg to straighten leg as a child" - plate removed, right total hip replacement due to a fracture from a fall, dialysis Past Anesthesia/Blood Transfusion Reactions: No Reported Reaction Past Psychological History: No Psychological Hx Reported Smoking Status: Former smoker Past Alcohol Use History: None Reported Past Drug Use History: None Reported Medications and Allergies Home Medications Medication Instructions Recorded Confirmed Type Aspirin 81 mg PO DAILY 90 Days #90 tab 06/25/23 11/21/23 Rx Clopidogrel [Plavix] 75 mg PO DAILY tab 09/27/23 11/21/23 Rx Docusate [Colace] 100 mg PO BID cap 09/27/23 11/21/23 Rx Fluticasone Nasal [place] [Flonase 2 spray EA NOSTRIL DAILY ml 09/27/23 11/21/23 Rx Nasal [place]] Folic Acid 1 mg PO DAILY tab 09/27/23 11/21/23 Rx Lidocaine 4% Patch 1 patch TOPICAL DAILY patch 09/27/23 11/21/23 Rx Melatonin 5 mg PO HS tab 09/27/23 11/21/23 Rx Thiamine [Vitamin B-1] 100 mg PO DAILY tab 09/27/23 11/21/23 Rx rOPINIRole HCL [Requip] 1 mg PO HS PRN tab 09/27/23 11/21/23 Rx Darbepoetin Frantz [Aranesp] 40 mcg SQ FR 10/09/23 11/21/23 History Ipratropium-Albuterol Nebulize 3 ml INHALATION RT-Q6H PRN 10/09/23 11/21/23 History [Duoneb 0.5 mg-3 mg/3 ml Soln] Multivitamins, Thera [Multivitamin 1 tab PO DAILY@0800 10/09/23 11/21/23 History (formulary)] Atorvastatin [Lipitor] 40 mg PO DAILY tab 10/21/23 11/21/23 Rx Calcium Acetate [PhosLo] 667 mg PO TID-W/MEALS tab 10/21/23 11/21/23 Rx Cholecalciferol [Vitamin D3 (25 25 mcg PO DAILY tab 10/21/23 11/21/23 Rx Mcg = 1000 Iu)] Dapagliflozin Propanediol [Farxiga] 10 mg PO DAILY tab 10/21/23 11/21/23 Rx Heparin Sodium,Porcine (1 ml) 5,000 unit SQ Q12HR each 10/21/23 11/21/23 Rx [Heparin Sodium] Bumetanide [Bumex] 1 mg PO TID@0500,1300,2100 11/21/23 11/21/23 History Ferrous Sulfate [Feosol] 325 mg PO BID 11/21/23 11/21/23 History HYDROcodone/APAP 5-325MG [[place] 1 tab PO Q4HR PRN 11/21/23 11/21/23 History 5-325] Insulin Lispro [humaLOG Kwikpen] See Protocol SQ ACHS@06,11,16,20 11/21/23 11/21/23 History Levothyroxine Sodium [Synthroid] 75 mcg PO DAILY@0600 11/21/23 11/21/23 History Omeprazole 20 mg PO DAILY 11/21/23 11/21/23 History hydrALAZINE HCL [Apresoline] 25 mg PO BID@0800,1600 11/21/23 11/21/23 History lisinopriL [Zestril] 2.5 mg PO DAILY@0800 11/21/23 11/21/23 History Allergies Allergy/AdvReac Type Severity Reaction Status Date / Time No Known Allergies Allergy Verified 11/20/23 20:00 Physical Exam Vitals: Vital Signs Temp Pulse Resp BP Pulse Ox 11/21/23 00:23 83 14 138/78 96 11/21/23 00:00 98 18 138/81 97 11/20/23 23:00 93 14 132/82 97 11/20/23 22:42 85 11/20/23 22:27 82 11/20/23 22:00 81 14 122/66 99 11/20/23 21:00 79 24 139/77 99 11/20/23 20:47 22 11/20/23 20:00 82 28 H 134/103 96 11/20/23 19:55 97.8 F 82 22 139/77 96 Intake and Output 11/20/23 11/20/23 11/21/23 14:59 22:59 06:59 Output Total 525 Balance -525 Output: Urine 525 Other: Weight 81.647 kg 81.647 kg Results CBC & Chem 7: 11/21/23 04:28 11/21/23 04:28 Labs: Abnormal Lab Results - Last 24 Hours (Table) 11/20/23 11/20/23 11/20/23 Range/Units 20:40 20:40 22:21 RBC 3.12 L (3.80-5.40) m/uL Hgb 8.6 L (11.4-16.0) gm/dL Hct 28.9 L (34.0-46.0) % MCHC 29.7 L (31.0-37.0) g/dL RDW 16.5 H (11.5-15.5) % Neutrophils # 8.1 H (1.3-7.7) k/uL Lymphocytes # 0.5 L (1.0-4.8) k/uL Sodium 136 L (137-145) mmol/L Potassium 5.3 H (3.5-5.1) mmol/L BUN 57 H (7-17) mg/dL Creatinine 2.37 H (0.52-1.04) mg/dL Glucose 214 H (74-99) mg/dL POC Glucose (mg/dL) 181 H (70-110) mg/dL Calcium 7.8 L (8.4-10.2) mg/dL Alkaline Phosphatase 163 H (38-126) U/L Albumin 2.9 L (3.5-5.0) g/dL 11/20/23 Range/Units 23:39 RBC (3.80-5.40) m/uL Hgb (11.4-16.0) gm/dL Hct (34.0-46.0) % MCHC (31.0-37.0) g/dL RDW (11.5-15.5) % Neutrophils # (1.3-7.7) k/uL Lymphocytes # (1.0-4.8) k/uL Sodium (137-145) mmol/L Potassium (3.5-5.1) mmol/L BUN (7-17) mg/dL Creatinine (0.52-1.04) mg/dL Glucose (74-99) mg/dL POC Glucose (mg/dL) 117 H (70-110) mg/dL Calcium (8.4-10.2) mg/dL Alkaline Phosphatase (38-126) U/L Albumin (3.5-5.0) g/dL Thrombosis Risk Factor Assmnt - Choose All That Apply Any of the Below Risk Factors Present?: Yes Each Factor Represents 1 point: Age 41-60 years, Obesity (BMI >25), Swollen legs (current) Other Risk Factors: No Other congenital or acquired thrombophilia - If yes, enter type in comment: No Thrombosis Risk Factor Assessment Total Risk Factor Score: 3 Thrombosis Risk Factor Assessment Level: Moderate Risk
--- NOTE | 2023-11-21 13:21 | P.NPCON ---
History of Present Illness - Reason for Consult chronic renal failure - History of Present Illness patient is a 58-year-old female with history of coronary artery disease, hypertension, chronic kidney disease stage IIIB with baseline creatinine about 2 mg/dL. Patient was recently discharged from the hospital after treatment for volume overloadand UTI. Serum creatinine was 1.9 on 11/15/2023. It was 2.1on discharge on 10/21/2023 Patient was recently seen as outpatient and 2.5 mg off lisinopril was added. Patient remains on Bumex 1 mg 3 times a day. Patient is admitted to the hospital with complaints of shortness of breath and increased weakness. No history of fever chills nausea vomiting or abdominal pain. patient has a chronic indwelling [place] catheter. Review of Systems As per HPI Past Medical History Past Medical History: Diabetes Mellitus, Hyperlipidemia, Hypertension, Renal Disease Additional Past Medical History / Comment(s): restless leg, neurothopy, Guillain-[place], dialysis History of Any Multi-Drug Resistant Organisms: None Reported Past Surgical History: Orthopedic Surgery, Tonsillectomy Additional Past Surgical History / Comment(s): "plate in left leg to straighten leg as a child" - plate removed, right total hip replacement due to a fracture from a fall, dialysis Past Anesthesia/Blood Transfusion Reactions: No Reported Reaction Past Psychological History: No Psychological Hx Reported Smoking Status: Former smoker Past Alcohol Use History: None Reported Past Drug Use History: None Reported Medications and Allergies Home Medications Medication Instructions Recorded Confirmed Type Aspirin 81 mg PO DAILY 90 Days #90 tab 06/25/23 11/21/23 Rx Clopidogrel [Plavix] 75 mg PO DAILY tab 09/27/23 11/21/23 Rx Docusate [Colace] 100 mg PO BID cap 09/27/23 11/21/23 Rx Fluticasone Nasal [place] [Flonase 2 spray EA NOSTRIL DAILY ml 09/27/23 11/21/23 Rx Nasal [place]] Folic Acid 1 mg PO DAILY tab 09/27/23 11/21/23 Rx Lidocaine 4% Patch 1 patch TOPICAL DAILY patch 09/27/23 11/21/23 Rx Melatonin 5 mg PO HS tab 09/27/23 11/21/23 Rx Thiamine [Vitamin B-1] 100 mg PO DAILY tab 09/27/23 11/21/23 Rx rOPINIRole HCL [Requip] 1 mg PO HS PRN tab 09/27/23 11/21/23 Rx Darbepoetin Frantz [Aranesp] 40 mcg SQ FR 10/09/23 11/21/23 History Ipratropium-Albuterol Nebulize 3 ml INHALATION RT-Q6H PRN 10/09/23 11/21/23 His tory [Duoneb 0.5 mg-3 mg/3 ml Soln] Multivitamins, Thera [Multivitamin 1 tab PO DAILY@0800 10/09/23 11/21/23 History (formulary)] Atorvastatin [Lipitor] 40 mg PO DAILY tab 10/21/23 11/21/23 Rx Calcium Acetate [PhosLo] 667 mg PO TID-W/MEALS tab 10/21/23 11/21/23 Rx Cholecalciferol [Vitamin D3 (25 25 mcg PO DAILY tab 10/21/23 11/21/23 Rx Mcg = 1000 Iu)] Dapagliflozin Propanediol [Farxiga] 10 mg PO DAILY tab 10/21/23 11/21/23 Rx Heparin Sodium,Porcine (1 ml) 5,000 unit SQ Q12HR each 10/21/23 11/21/23 Rx [Heparin Sodium] Bumetanide [Bumex] 1 mg PO TID@0500,1300,2100 11/21/23 11/21/23 History Ferrous Sulfate [Feosol] 325 mg PO BID 11/21/23 11/21/23 History HYDROcodone/APAP 5-325MG [[place] 1 tab PO Q4HR PRN 11/21/23 11/21/23 History 5-325] Insulin Lispro [humaLOG Kwikpen] See Protocol SQ ACHS@06,11,16,20 11/21/23 11/21/23 History Levothyroxine Sodium [Synthroid] 75 mcg PO DAILY@0600 11/21/23 11/21/23 History Omeprazole 20 mg PO DAILY 11/21/23 11/21/23 History hydrALAZINE HCL [Apresoline] 25 mg PO BID@0800,1600 11/21/23 11/21/23 History lisinopriL [Zestril] 2.5 mg PO DAILY@0800 11/21/23 11/21/23 History Allergies Allergy/AdvReac Type Severity Reaction Status Date / Time No Known Allergies Allergy Verified 11/20/23 20:00 Physical Exam Vitals: Vital Signs Temp Pulse Pulse Pulse Resp BP BP 11/21/23 09:30 11/21/23 06:52 98.1 F 76 20 118/49 11/21/23 01:11 97.7 F 83 19 126/76 11/21/23 00:23 83 14 138/78 11/21/23 00:00 98 18 138/81 11/20/23 23:00 93 14 132/82 11/20/23 22:42 85 11/20/23 22:27 82 11/20/23 22:00 81 14 122/66 11/20/23 21:00 79 24 139/77 11/20/23 20:47 22 11/20/23 20:00 82 28 H 134/103 11/20/23 19:55 97.8 F 82 22 139/77 Pulse Ox 11/21/23 09:30 97 11/21/23 06:52 98 11/21/23 01:11 98 11/21/23 00:23 96 11/21/23 00:00 97 11/20/23 23:00 97 11/20/23 22:42 11/20/23 22:27 11/20/23 22:00 99 11/20/23 21:00 99 11/20/23 20:47 11/20/23 20:00 96 11/20/23 19:55 96 Intake and Output 11/20/23 11/21/23 11/21/23 22:59 06:59 14:59 Intake Total 10 180 Output Total 525 Balance 10 -525 180 Intake: IV 10 Invasive Line 1 10 Oral 180 Output: Urine 525 Other: Voiding Method Indwelling Catheter Indwelling Catheter # Bowel Movements 1 Weight 81.647 kg 59 kg patient is awake, no acute distress she does get anxious. Examination of the heart S1 and S2 Examination of the lungs bilateral breath sounds are heard with decreased breath sounds at the bases and basilar crackles. Abdomen is soft nontender Examination lower extremity shows 3+ edema bilaterally PC ANALYST exam shows patient is able to move all 4 extremities. Results - Lab Results Most recent lab results Calcium 7.7 mg/dL (8.7-10.3) L 11/21/23 04:28 11/21/23 04:28 11/21/23 04:28 Assessment and Plan Assessment: 1. Acute kidney injury, cardiorenal, with indwelling [place] catheter. History of hemodialysis dependent acute kidney injury which recovered.. 2. Volume overload 3. Acute on chronic systolic CHF. EF is 40-45%on echocardiogram on 10/15/2023 4. History of cardiac arrest 5. Chronic kidney disease NKF stage IIIB to IV with baseline creatinine more recently around 1.9-2 mg/dL. Plan: Start Lasix drip continue with Farxiga Hold lisinopril for now Repeat labs in a.m. Accurate I's and O's Check iron profile continue Aranesp Continue with [place] catheter. Patient may need to restart dialysis if volume status is not improved in 24-48 hours.
[2023-11-21] MEDS: FUROSEMIDE 100 MG in SODIUM CHLORIDE 0.9% 90 ML IV SCH (13:27)
--- NOTE | 2023-11-21 14:33 | P.CNPUL ---
History of Present Illness Consult date: 11/21/23 Requesting physician: Jesus Mina Reason for consult: dyspnea, hypoxemia Chief complaint: Shortness of breath, edema History of present illness: This is a 58-year-old female patient with a known history of chronic kidney disease with previous temporary hemodialysis, chronic anemia, coronary artery disease with previous stent to the RCA, previous cardiac arrest, nonhealing right heel pressure wound, hypertension, hyperlipidemia, diabetes mellitus, severe pulmonary hypertension, COPD, former smoker congestive heart failure. She presented here to the emergency room yesterday with complaints of increasing shortness of breath and swelling all over. Chest x-ray reviewed with hazy appearance representing atelectasis versus pulmonary edema. White count 0.9. Platelets 167. Sodium 138. Potassium 5.1. Bicarb 24. BUN 57. Creatinine 2.5. Glucose 127. proBNP 33,100. She is seen today in consultation on the regular medical floor. She is currently sitting up in a chair at the bedside. Awake and alert in no acute distress. Somewhat of a poor historian. She is maintaining good O2 saturations in the 90s on 2 L/min per nasal cannula. She is afebrile. Hemodynamically stable. Review of Systems REVIEW OF SYSTEMS: CONSTITUTIONAL: Denies any recent significant weight loss or weight gain. EYES: Denies change in vision. EARS, NOSE, MOUTH, THROAT: Denies headaches, denies sore throat. CARDIOVASCULAR: Denies chest pain, palpitations or syncopal episodes. RESPIRATORY: Positive for shortness of breath, cough, congestion no hemoptysis. GASTROINTESTINAL: Denies change in appetite, denies abdominal pain GENITOURINARY: Denies hematuria, denies infections. MUSKULOSKELETAL: Positive for increased swelling. INTEGUMENTARY: Denies rash, denies eczema. NEUROLOGICAL: Denies recent memory loss, no recent seizure activity. PSYCHIATRIC: Denies anxiety, denies depression. HEMATOLOGIC/LYMPHATIC: Denies anemia, denies enlarged lymph nodes. Past Medical History Past Medical History: Diabetes Mellitus, Hyperlipidemia, Hypertension, Renal Disease Additional Past Medical History / Comment(s): restless leg, neurothopy, Guillain-[place], dialysis History of Any Multi-Drug Resistant Organisms: None Reported Past Surgical History: Orthopedic Surgery, Tonsillectomy Additional Past Surgical History / Comment(s): "plate in left leg to straighten leg as a child" - plate removed, right total hip replacement due to a fracture from a fall, dialysis Past Anesthesia/Blood Transfusion Reactions: No Reported Reaction Past Psychological History: No Psychological Hx Reported Smoking Status: Former smoker Past Alcohol Use History: None Reported Past Drug Use History: None Reported Medications and Allergies Home Medications Medication Instructions Recorded Confirmed Type Aspirin 81 mg PO DAILY 90 Days #90 tab 06/25/23 11/21/23 Rx Clopidogrel [Plavix] 75 mg PO DAILY tab 09/27/23 11/21/23 Rx Docusate [Colace] 100 mg PO BID cap 09/27/23 11/21/23 Rx Fluticasone Nasal [place] [Flonase 2 spray EA NOSTRIL DAILY ml 09/27/23 11/21/23 Rx Nasal [place]] Folic Acid 1 mg PO DAILY tab 09/27/23 11/21/23 Rx Lidocaine 4% Patch 1 patch TOPICAL DAILY patch 09/27/23 11/21/23 Rx Melatonin 5 mg PO HS tab 09/27/23 11/21/23 Rx Thiamine [Vitamin B-1] 100 mg PO DAILY tab 09/27/23 11/21/23 Rx rOPINIRole HCL [Requip] 1 mg PO HS PRN tab 09/27/23 11/21/23 Rx Darbepoetin Frantz [Aranesp] 40 mcg SQ FR 10/09/23 11/21/23 History Ipratropium-Albuterol Nebulize 3 ml INHALATION RT-Q6H PRN 10/09/23 11/21/23 History [Duoneb 0.5 mg-3 mg/3 ml Soln] Multivitamins, Thera [Multivitamin 1 tab PO DAILY@0800 10/09/23 11/21/23 History (formulary)] Atorvastatin [Lipitor] 40 mg PO DAILY tab 10/21/23 11/21/23 Rx Calcium Acetate [PhosLo] 667 mg PO TID-W/MEALS tab 10/21/23 11/21/23 Rx Cholecalciferol [Vitamin D3 (25 25 mcg PO DAILY tab 10/21/23 11/21/23 Rx Mcg = 1000 Iu)] Dapagliflozin Propanediol [Farxiga] 10 mg PO DAILY tab 10/21/23 11/21/23 Rx Heparin Sodium,Porcine (1 ml) 5,000 unit SQ Q12HR each 10/21/23 11/21/23 Rx [Heparin Sodium] Bumetanide [Bumex] 1 mg PO TID@0500,1300,2100 11/21/23 11/21/23 History Ferrous Sulfate [Feosol] 325 mg PO BID 11/21/23 11/21/23 History HYDROcodone/APAP 5-325MG [[place] 1 tab PO Q4HR PRN 11/21/23 11/21/23 History 5-325] Insulin Lispro [humaLOG Kwikpen] See Protocol SQ ACHS@06,11,16,20 11/21/23 11/21/23 History Levothyroxine Sodium [Synthroid] 75 mcg PO DAILY@0600 11/21/23 11/21/23 History Omeprazole 20 mg PO DAILY 11/21/23 11/21/23 History hydrALAZINE HCL [Apresoline] 25 mg PO BID@0800,1600 11/21/23 11/21/23 History lisinopriL [Zestril] 2.5 mg PO DAILY@0800 11/21/23 11/21/23 History Allergies Allergy/AdvReac Type Severity Reaction Status Date / Time No Known Allergies Allergy Verified 11/20/23 20:00 Physical Exam Vitals: Vital Signs Temp Pulse Pulse Pulse Resp BP BP 11/21/23 09:30 11/21/23 06:52 98.1 F 76 20 118/49 11/21/23 01:11 97.7 F 83 19 126/76 11/21/23 00:23 83 14 138/78 11/21/23 00:00 98 18 138/81 11/20/23 23:00 93 14 132/82 11/20/23 22:42 85 11/20/23 22:27 82 11/20/23 22:00 81 14 122/66 11/20/23 21:00 79 24 139/77 11/20/23 20:47 22 11/20/23 20:00 82 28 H 134/103 11/20/23 19:55 97.8 F 82 22 139/77 Pulse Ox 11/21/23 09:30 97 11/21/23 06:52 98 11/21/23 01:11 98 11/21/23 00:23 96 11/21/23 00:00 97 11/20/23 23:00 97 11/20/23 22:42 11/20/23 22:27 11/20/23 22:00 99 11/20/23 21:00 99 11/20/23 20:47 11/20/23 20:00 96 11/20/23 19:55 96 Intake and Output 11/20/23 11/21/23 11/21/23 22:59 06:59 14:59 Intake Total 10 180 Output Total 525 Balance 10 -525 180 Intake: IV 10 Invasive Line 1 10 Oral 180 Output: Urine 525 Other: Voiding Method Indwelling Catheter Indwelling Catheter # Bowel Movements 1 Weight 81.647 kg 59 kg GENERAL EXAM: Alert, 58-year-old female, on 2 L nasal cannula, up in a chair, poor historian, in no apparent distress. HEAD: Normocephalic. EYES: Normal reaction of pupils, equal size. NOSE: Clear with pink turbinates. THROAT: No erythema or exudates. NECK: No masses, no JVD. CHEST: No chest wall deformity. LUNGS: Equal air entry with crackles in the bilateral bases. CVS: S1 and S2 normal with no audible murmur, regular rhythm. ABDOMEN: No hepatosplenomegaly, normal bowel sounds, no guarding or rigidity. SPINE: No scoliosis or deformity SKIN: No rashes CENTRAL NERVOUS SYSTEM: No focal deficits, tone is normal in all 4 extremities. EXTREMITIES: There is 1-2+ peripheral edema. Right lower extremity in a hard boot. No clubbing, no cyanosis. Peripheral pulses are intact. Results - Laboratory Findings CBC and BMP: 11/21/23 04:28 11/21/23 04:28 PT/INR, D-dimer PT 11.4 sec (10.0-12.5) 11/20/23 20:40 INR 1.1 (<1.2) 11/20/23 20:40 Abnormal lab findings: Abnormal Labs 11/20/23 11/20/23 11/20/23 20:40 20:40 22:21 WBC RBC 3.12 L Hgb 8.6 L Hct 28.9 L MCH MCHC 29.7 L RDW 16.5 H Immature Gran # Neutrophils # 8.1 H Lymphocytes # 0.5 L Sodium 136 L Potassium 5.3 H BUN 57 H Creatinine 2.37 H Est GFR (CKD-EPI) BUN/Creatinine Ratio Glucose 214 H POC Glucose (mg/dL) 181 H Calcium 7.8 L Total Bilirubin Alkaline Phosphatase 163 H Albumin 2.9 L Globulin Albumin/Globulin Ratio 11/20/23 11/21/23 11/21/23 23:39 04:28 04:28 WBC 10.78 H RBC 2.94 L Hgb 7.9 L Hct 27.5 L MCH 26.9 L MCHC 28.7 L RDW 17.7 H Immature Gran # 0.06 H Neutrophils # 9.04 H Lymphocytes # 0.76 L Sodium Potassium BUN 56.6 H Creatinine 2.5 H Est GFR (CKD-EPI) 22 L BUN/Creatinine Ratio 22.64 H Glucose POC Glucose (mg/dL) 117 H Calcium 7.7 L Total Bilirubin 0.2 L Alkaline Phosphatase 174 H Albumin 2.8 L Globulin 3.9 H Albumin/Globulin Ratio 0.72 L 11/21/23 11:19 WBC RBC Hgb Hct MCH MCHC RDW Immature Gran # Neutrophils # Lymphocytes # Sodium Potassium BUN Creatinine Est GFR (CKD-EPI) BUN/Creatinine Ratio Glucose POC Glucose (mg/dL) 127 H Calcium Total Bilirubin Alkaline Phosphatase Albumin Globulin Albumin/Globulin Ratio - Diagnostic Findings Chest x-ray: image reviewed Assessment and Plan Assessment: Acute hypoxic respiratory failure secondary to an acute exacerbation of diastolic congestive heart failure Chronic anemia Chronic kidney disease with previous hemodialysis Coronary artery disease with previous stenting Pulmonary hypertension Hypertension Hyperlipidemia Diabetes mellitus Chronic wounds of the lower extremities more so on the right heel Previous cardiac arrest with extended stay in the intensive care unit in July 2023 History of complete rectal prolapse with previous attempts to replace Chronic obstructive pulmonary disease Former smoker History of previous urinary tract infections with E. coli and Proteus Plan: The patient was seen and evaluated Chest x-ray, labs and medications reviewed Currently on a Lasix drip at 10 mg/h Indwelling catheter for accurate I's and O's Prone for DVT prophylaxis Continue DuoNeb inhalations as needed No need for steroids We will continue to follow and make further recommendations based on her clinical status I have personally seen and examined the patient, performed the documentation and the assessment and plan as written. Number of minutes spent on the visit: 20.
[2023-11-21] MEDS ORDERED: methylPREDNISolone SOD SUCCI 125 MG/2 ML VIAL IV SCH (16:00)
[2023-11-21 16:57] LABS: Glucose,Whole Blood 179 mg/dL (70-110)
[2023-11-21 17:27] LABS: % Iron Saturation 6.08 (12.00-45.00)
[2023-11-21] MEDS: MELATONIN 5 MG TABLET PO SCH (21:11)
[2023-11-21 21:14] LABS: Glucose,Whole Blood 253 mg/dL (70-110)
[2023-11-21] MEDS: IPRATROPIUM-ALBUTEROL 3 ML NEB INHALATION PRN (21:34)
[2023-11-22 05:35] LABS: Glucose,Whole Blood 65 mg/dL (70-110)
[2023-11-22 06:59] LABS: Glucose,Whole Blood 60 mg/dL (70-110)
--- NOTE | 2023-11-22 07:43 | XR ---
EXAMINATION TYPE: XR chest 1V DATE OF EXAM: 11/22/2023 COMPARISON: 11/20/2019 HISTORY: Shortness of breath TECHNIQUE: Single frontal view of the chest is obtained. FINDINGS: Limited inspiration with bilateral consolidation and tiny effusions. Persistent interstiti al pattern improved. No pneumothorax. Heart size mildly enlarged with atherosclerotic change of aorta . Structure stable IMPRESSION: Bilateral infiltrate and small effusion stable. Mild improvement in interstitial correla tion with improving venous congestion. Underlying pneumonia not excluded
[2023-11-22 07:49] LABS: Glucose,Whole Blood 65 mg/dL (70-110)
[2023-11-22 08:24] LABS: Basophils # (A) 0.06 X 10*3/uL (0.00-0.10); Basophils % (A) 0.5 %; Eosinophils # (A) 0.29 X 10*3/uL (0.04-0.35); Eosinophils % (A) 2.4 %; HCT 27.9 % (37.2-46.3); HGB 7.9 g/dL (12.0-15.0); Lymphocytes # (A) 0.58 X 10*3/uL (0.90-5.00); Lymphocytes % (A) 4.9 %; MCH 26.3 pg (27.0-32.0); MCHC 28.3 g/dL (32.0-37.0); Mean Platelet Volume 11.4 FL (9.5-12.2); Monocytes # (A) 1.08 X 10*3/uL (0.20-1.00); NRBC Per 100 WBC 0 X 10*3/uL (0.00-0.01); Neutrophils # (A) 9.89 X 10*3/uL (1.80-7.70); Neutrophils % (A) 82.9 %; Platelet Count 182 X 10*3/uL (140-440); RDW 17.5 % (11.5-14.5); WBC 11.94 X 10*3/uL (4.50-10.00)
[2023-11-22 08:40] LABS: Glucose,Whole Blood 96 mg/dL (70-110)
[2023-11-22 08:45] LABS: BUN/Creat Ratio 21.48 Ratio (12.00-20.00); Glucose 55 mg/dL (70-110); Magnesium 2.3 mg/dL (1.5-2.4)
[2023-11-22 08:46] LABS: ALT 12 U/L (8-44); AST 14 U/L (13-35); Albumin 2.9 g/dL (3.8-4.9); Albumin/Globulin Ratio 0.78 Ratio (1.60-3.17); Alkaline Phosphatase 173 U/L (41-126); Calcium 7.8 mg/dL (8.7-10.3); Carbon Dioxide 25.3 mmol/L (21.6-31.8); Chloride 104 mmol/L (96-109); Globulin 3.7 g/dL (1.6-3.3); Potassium 5.7 mmol/L (3.5-5.5); Sodium 138 mmol/L (135-145); Total Bilirubin 0.2 mg/dL (0.3-1.2); Total Protein 6.6 g/dL (6.2-8.2)
--- NOTE | 2023-11-22 09:27 | P.PN ---
Subjective Progress Note Date: 11/22/23 Consult reason: congestive heart failure History of present illness: This is a 58-year-old female patient of Dr. Jose with a past medical history significant for coronary artery disease with previous stenting, cardiomyopathy, hypertension, hyperlipidemia, diabetes, severe pulmonary hypertension, COPD, and chronic kidney disease recently on hemodialysis, cardiopulmonary arrest, anoxic encephalopathy with improvement of mental status. She has history of a stent to the RCA on 05/2023. Most recently, she was hospitalized in September for acute kidney injury with creatinine of 3.72. Along with hyperkalemia, sepsis with possible UTI, fracture of the right malleolus, rectal prolapse. She was seen during that stay for asymptomatic bradycardia with no sign of high degree AV block. Patient was discharged to correction and yesterday was found to have generalized anasarca, dyspnea at rest. She was transferred to [facility] emergency center. We have been asked to evaluate the patient for CHF. Blood pressure is 138/78, heart rate 83, pulse ox 98% on 2 and half liters nasal cannula. Patient has been started on IV Lasix 80 mg every 12 hours, nephrology is on consult as well. EKG reveals sinus mechanism, low voltage Chest xray: Low lung volumes with generalized hazy appearance which could represent atelectasis versus pulmonary edema. Laboratory data: WBC 10.7, hemoglobin 7.9, platelet count 167. Sodium 138, potassium 5.1, BUN 56 and creatinine 2.5. Alkaline phosphatase 174. Current home cardiac medications include aspirin 81 mg daily, atorvastatin 40 mg daily, Bumex 1 mg 3 times daily, Plavix 75 mg daily, Farxiga 10 mg daily, hydralazine 25 mg 2 times daily, lisinopril 2.5 mg daily. Patient is not on a beta-satnam due to bradycardia. Most recent echocardiogram obtained in 10/14/2023 reveals EF of 40 to 45% with g lobal hypokinesia. Intact mitral valve leaflets with mild to moderate mitral regurgitation. Moderate tricuspid regurgitation.. Cardiac catheterization history: 06/24/[address] Jose revealed 70% eccentric proximal RCA disease, 80% diffuse diagonal disease which is very small vessel, jailed not amenable to intervention. 50% proximal left circumflex disease. Mild luminal irregularities otherwise. Elevated LVEDP 18 mmHg. Patient subsequently underwent stenting of the proximal RCA performed by Dr. Riddle. 11/21 Patient is seen and examined. She has been started on Lasix drip by nephrology and is scheduled for catheter placement for dialysis with Dr. Dale today. Patient has slightly less edema today. She states she is feeling much better, she is more alert today. Blood pressure 119/62, heart rate 74, pulse ox 95% on 2 L nasal cannula. Repeat blood work reveals WBC 11.4, hemoglobin 7.9. Potassium 5.7, sodium 138, BUN 58 creatinine 2.7. RITO's do not appear to be accurate. PHYSICAL EXAM: VITAL SIGNS: Reviewed. GENERAL: Well-developed in no acute distress. HEENT: Head is normocephalic. Pupils are equal, round. Sclerae anicteric. Mucous membranes of the mouth are moist. Neck supple. No JVD or thyromegaly LUNGS: Respirations even and unlabored. Lungs diminished with bibasilar crackles HEART: Regular rate and rhythm. S1 and S2 heard. 3/6 systolic murmur at the base and 2/6 systolic murmur at the apex ABDOMEN: Soft. Nondistended. Nontender. Generalized anasarca noted. EXTREMITIES: No clubbing or cyanosis. Peripheral pulses intact. Bilateral upper and lower extremity edema noted. NEUROLOGIC: Awake and alert. ASSESSMENT: Acute on chronic systolic heart failure Acute kidney injury, scheduled for dialysis catheter placement 11/21 for HD Chronic heart failure with reduced EF Coronary artery disease with recent stenting of the proximal RCA, 06/24/2023 Ischemic cardiomyopathy Chronic kidney disease stage IIIb History of renal failure requiring hemodialysis Hypertension Hyperlipidemia Diabetes mellitus type II insulin requiring History of severe pulmonary hypertension COPD Former nicotine dependence Right sided malleolus fracture Anemia of chronic disease PLAN: Continue patient on on Lasix drip per nephrology Plan is for patient to start hemodialysis Daily weights, accurate intake and output, and monitoring of kidney function Continue patient's home cardiac medications: aspirin 81 mg daily, atorvastatin 40 mg daily, Plavix 75 mg daily, Farxiga 10 mg daily, hydralazine 25 mg 2 times daily, lisinopril 2.5 mg daily. Patient is not on a beta-satnam due to bradycardia. Further recommendations pending patient course Nurse practitioner note has been reviewed by physician. Signing provider agrees with the documented findings, assessment, and plan of care documented by [employer] GR[employer]ER as a scribe. Objective - Vital Signs Vital signs: Vital Signs Temp 98.1 F 11/22/23 07:14 Pulse 77 11/22/23 08:14 Resp 18 11/22/23 08:14 BP 119/62 11/22/23 07:14 Pulse Ox 95 11/22/23 08:06 FiO2 Intake & Output 11/21/23 11/22/23 11/22/23 18:59 06:59 18:59 Intake Total 720 80.667 95.5 Output Total 325 400 Balance 395 -319.333 95.5 Weight 61.5 kg Intake: Intake, IV Titration 80.667 95.5 Amount Furosemide 100 mg In 80.667 95.5 Sodium Chloride 0.9% 90 ml @ 10 MG/HR 10 mls/hr IV .Q10H [facility] Rx#: [id number] Oral 720 Output: Urine 325 400 Other: Voiding Method Indwelling Catheter Indwelling Catheter - Labs CBC & Chem 7: 11/22/23 05:08 11/22/23 05:08 Labs: Abnormal Lab Results - Last 24 Hours (Table) 11/21/23 11/21/23 11/21/23 Range/Units 04:28 11:19 16:52 WBC (4.50-10.00) X 10*3/uL RBC (4.10-5.20) X 10*6/uL Hgb (12.0-15.0) g/dL Hct (37.2-46.3) % MCH (27.0-32.0) pg MCHC (32.0-37.0) g/dL RDW (11.5-14.5) % Neutrophils # (1.80-7.70) X 10*3/uL Lymphocytes # (0.90-5.00) X 10*3/uL Monocytes # (0.20-1.00) X 10*3/uL Potassium (3.5-5.5) mmol/L BUN (9.0-27.0) mg/dL Creatinine (0.6-1.5) mg/dL Est GFR (CKD-EPI) (>=60) BUN/Creatinine Ratio (12.00-20.00) Ratio Glucose (70-110) mg/dL POC Glucose (mg/dL) 127 H 179 H (70-110) mg/dL Calcium (8.7-10.3) mg/dL Iron 11 L (50-170) UG/DL TIBC 181 L (228-460) UG/DL % Saturation 6.08 L (12.00-45.00) Transferrin 129.0 L (204.0-354.0) mg/dL Total Bilirubin (0.3-1.2) mg/dL Alkaline Phosphatase (41-126) U/L Albumin (3.8-4.9) g/dL Globulin (1.6-3.3) g/dL Albumin/Globulin Ratio (1.60-3.17) Ratio 11/21/23 11/22/23 11/22/23 Range/Units 21:13 05:08 05:08 WBC 11.94 H (4.50-10.00) X 10*3/uL RBC 3.00 L (4.10-5.20) X 10*6/uL Hgb 7.9 L (12.0-15.0) g/dL Hct 27.9 L (37.2-46.3) % MCH 26.3 L (27.0-32.0) pg MCHC 28.3 L (32.0-37.0) g/dL RDW 17.5 H (11.5-14.5) % Neutrophils # 9.89 H (1.80-7.70) X 10*3/uL Lymphocytes # 0.58 L (0.90-5.00) X 10*3/uL Monocytes # 1.08 H (0.20-1.00) X 10*3/uL Potassium 5.7 H (3.5-5.5) mmol/L BUN 58.0 H (9.0-27.0) mg/dL Creatinine 2.7 H (0.6-1.5) mg/dL Est GFR (CKD-EPI) 20 L (>=60) BUN/Creatinine Ratio 21.48 H (12.00-20.00) Ratio Glucose 55 L (70-110) mg/dL POC Glucose (mg/dL) 253 H (70-110) mg/dL Calcium 7.8 L (8.7-10.3) mg/dL Iron (50-170) UG/DL TIBC (228-460) UG/DL % Saturation (12.00-45.00) Transferrin (204.0-354.0) mg/dL Total Bilirubin 0.2 L (0.3-1.2) mg/dL Alkaline Phosphatase 173 H (41-126) U/L Albumin 2.9 L (3.8-4.9) g/dL Globulin 3.7 H (1.6-3.3) g/dL Albumin/Globulin Ratio 0.78 L (1.60-3.17) Ratio 11/22/23 11/22/23 11/22/23 Range/Units 05:33 06:41 07:47 WBC (4.50-10.00) X 10*3/uL RBC (4.10-5.20) X 10*6/uL Hgb (12.0-15.0) g/dL Hct (37.2-46.3) % MCH (27.0-32.0) pg MCHC (32.0-37.0) g/dL RDW (11.5-14.5) % Neutrophils # (1.80-7.70) X 10*3/uL Lymphocytes # (0.90-5.00) X 10*3/uL Monocytes # (0.20-1.00) X 10*3/uL Potassium (3.5-5.5) mmol/L BUN (9.0-27.0) mg/dL Creatinine (0.6-1.5) mg/dL Est GFR (CKD-EPI) (>=60) BUN/Creatinine Ratio (12.00-20.00) Ratio Glucose (70-110) mg/dL POC Glucose (mg/dL) 65 L 60 L 65 L (70-110) mg/dL Calcium (8.7-10.3) mg/dL Iron (50-170) UG/DL TIBC (228-460) UG/DL % Saturation (12.00-45.00) Transferrin (204.0-354.0) mg/dL Total Bilirubin (0.3-1.2) mg/dL Alkaline Phosphatase (41-126) U/L Albumin (3.8-4.9) g/dL Globulin (1.6-3.3) g/dL Albumin/Globulin Ratio (1.60-3.17) Ratio
[2023-11-22] MEDS ORDERED: ONDANSETRON 4 MG/2 ML VIAL IVP PRN (11:06)
[2023-11-22 11:21] LABS: Glucose,Whole Blood 115 mg/dL (70-110)
--- NOTE | 2023-11-22 11:48 | P.PN ---
Subjective Progress Note Date: 11/22/23 This is a 58-year-old female patient with a known history of chronic kidney disease with previous temporary hemodialysis, chronic anemia, coronary artery disease with previous stent to the RCA, previous cardiac arrest, nonhealing right heel pressure wound, hypertension, hyperlipidemia, diabetes mellitus, severe pulmonary hypertension, COPD, former smoker congestive heart failure. She presented here to the emergency room yesterday with complaints of increasing shortness of breath and swelling all over. Chest x-ray reviewed with hazy appearance representing atelectasis versus pulmonary edema. White count 0.9. Platelets 167. Sodium 138. Potassium 5.1. Bicarb 24. BUN 57. Creatinine 2.5. Glucose 127. proBNP 33,100. She is seen today in consultation on the regular medical floor. She is currently sitting up in a chair at the bedside. Awake and alert in no acute distress. Somewhat of a poor historian. She is maintaining good O2 saturations in the 90s on 2 L/min per nasal cannula. She is afebrile. Hemodynamically stable. The patient is seen today November 22, 2023 in follow-up on the regular medical floor. She is currently sitting up in a chair at the bedside. Awake and alert in no acute distress. Breathing a bit easier today compared to yesterday. She is maintaining O2 saturations in the 90s on 2 L/min per nasal cannula. She is afebrile. Hemodynamically stable. Follow-up chest x-ray shows mild improvement in the pulmonary venous congestion. Bilateral infiltrates and small effusions stable. She remains on a Lasix drip at 10 mg/h. White count 11.9. Hemoglobin 7.9. Platelets 182. Sodium 138. Potassium 5.7. Bicarb 25. BUN 58. Creatinine 2.7. Glucose 115. She remains on DuoNeb inhalations. Heparin for DVT prophylaxis. Objective - Vital Signs Vital signs: Vital Signs Temp 98.1 F 11/22/23 07:14 Pulse 77 11/22/23 08:14 Resp 18 11/22/23 08:14 BP 119/62 11/22/23 07:14 Pulse Ox 95 11/22/23 08:06 FiO2 Intake & Output 11/21/23 11/22/23 11/22/23 18:59 06:59 18:59 Intake Total 720 80.667 95.5 Output Total 325 400 Balance 395 -319.333 95.5 Weight 61.5 kg Intake: Intake, IV Titration 80.667 95.5 Amount Furosemide 100 mg In 80.667 95.5 Sodium Chloride 0.9% 90 ml @ 10 MG/HR 10 mls/hr IV .Q10H [facility] Rx#: [id number] Oral 720 Output: Urine 325 400 Other: Voiding Method Indwelling Catheter Indwelling Catheter Indwelling Catheter # Bowel Movements 1 - Exam GENERAL EXAM: Alert, 58-year-old female, on 2 L nasal cannula, up in a chair, in no apparent distress. HEAD: Normocephalic. EYES: Normal reaction of pupils, equal size. NOSE: Clear with pink turbinates. THROAT: No erythema or exudates. NECK: No masses, no JVD. CHEST: No chest wall deformity. LUNGS: Equal air entry with crackles in the bilateral bases. CVS: S1 and S2 normal with no audible murmur, regular rhythm. ABDOMEN: No hepatosplenomegaly, normal bowel sounds, no guarding or rigidity. SPINE: No scoliosis or deformity SKIN: No rashes CENTRAL NERVOUS SYSTEM: No focal deficits, tone is normal in all 4 extremities. EXTREMITIES: There is 1-2+ peripheral edema. Right lower extremity in a hard boot. Peripheral pulses are intact. - Labs CBC & Chem 7: 11/22/23 05:08 11/22/23 05:08 Labs: Abnormal Lab Results - Last 24 Hours (Table) 11/21/23 11/21/23 11/21/23 Range/Units 04:28 16:52 21:13 WBC (4.50-10.00) X 10*3/uL RBC (4.10-5.20) X 10*6/uL Hgb (12.0-15.0) g/dL Hct (37.2-46.3) % MCH (27.0-32.0) pg MCHC (32.0-37.0) g/dL RDW (11.5-14.5) % Neutrophils # (1.80-7.70) X 10*3/uL Lymphocytes # (0.90-5.00) X 10*3/uL Monocytes # (0.20-1.00) X 10*3/uL Potassium (3.5-5.5) mmol/L BUN (9.0-27.0) mg/dL Creatinine (0.6-1.5) mg/dL Est GFR (CKD-EPI) (>=60) BUN/Creatinine Ratio (12.00-20.00) Ratio Glucose (70-110) mg/dL POC Glucose (mg/dL) 179 H 253 H (70-110) mg/dL Calcium (8.7-10.3) mg/dL Iron 11 L (50-170) UG/DL TIBC 181 L (228-460) UG/DL % Saturation 6.08 L (12.00-45.00) Transferrin 129.0 L (204.0-354.0) mg/dL Total Bilirubin (0.3-1.2) mg/dL Alkaline Phosphatase (41-126) U/L Albumin (3.8-4.9) g/dL Globulin (1.6-3.3) g/dL Albumin/Globulin Ratio (1.60-3.17) Ratio 11/22/23 11/22/23 11/22/23 Range/Units 05:08 05:08 05:33 WBC 11.94 H (4.50-10.00) X 10*3/uL RBC 3.00 L (4.10-5.20) X 10*6/uL Hgb 7.9 L (12.0-15.0) g/dL Hct 27.9 L (37.2-46.3) % MCH 26.3 L (27.0-32.0) pg MCHC 28.3 L (32.0-37.0) g/dL RDW 17.5 H (11.5-14.5) % Neutrophils # 9.89 H (1.80-7.70) X 10*3/uL Lymphocytes # 0.58 L (0.90-5.00) X 10*3/uL Monocytes # 1.08 H (0.20-1.00) X 10*3/uL Potassium 5.7 H (3.5-5.5) mmol/L BUN 58.0 H (9.0-27.0) mg/dL Creatinine 2.7 H (0.6-1.5) mg/dL Est GFR (CKD-EPI) 20 L (>=60) BUN/Creatinine Ratio 21.48 H (12.00-20.00) Ratio Glucose 55 L (70-110) mg/dL POC Glucose (mg/dL) 65 L (70-110) mg/dL Calcium 7.8 L (8.7-10.3) mg/dL Iron (50-170) UG/DL TIBC (228-460) UG/DL % Saturation (12.00-45.00) Transferrin (204.0-354.0) mg/dL Total Bilirubin 0.2 L (0.3-1.2) mg/dL Alkaline Phosphatase 173 H (41-126) U/L Albumin 2.9 L (3.8-4.9) g/dL Globulin 3.7 H (1.6-3.3) g/dL Albumin/Globulin Ratio 0.78 L (1.60-3.17) Ratio 11/22/23 11/22/23 11/22/23 Range/Units 06:41 07:47 11:20 WBC (4.50-10.00) X 10*3/uL RBC (4.10-5.20) X 10*6/uL Hgb (12.0-15.0) g/dL Hct (37.2-46.3) % MCH (27.0-32.0) pg MCHC (32.0-37.0) g/dL RDW (11.5-14.5) % Neutrophils # (1.80-7.70) X 10*3/uL Lymphocytes # (0.90-5.00) X 10*3/uL Monocytes # (0.20-1.00) X 10*3/uL Potassium (3.5-5.5) mmol/L BUN (9.0-27.0) mg/dL Creatinine (0.6-1.5) mg/dL Est GFR (CKD-EPI) (>=60) BUN/Creatinine Ratio (12.00-20.00) Ratio Glucose (70-110) mg/dL POC Glucose (mg/dL) 60 L 65 L 115 H (70-110) mg/dL Calcium (8.7-10.3) mg/dL Iron (50-170) UG/DL TIBC (228-460) UG/DL % Saturation (12.00-45.00) Transferrin (204.0-354.0) mg/dL Total Bilirubin (0.3-1.2) mg/dL Alkaline Phosphatase (41-126) U/L Albumin (3.8-4.9) g/dL Globulin (1.6-3.3) g/dL Albumin/Globulin Ratio (1.60-3.17) Ratio Assessment and Plan Assessment: Acute hypoxic respiratory failure secondary to an acute exacerbation of diastolic congestive heart failure Chronic anemia Chronic kidney disease with previous hemodialysis Coronary artery disease with previous stenting Pulmonary hypertension Hypertension Hyperlipidemia Diabetes mellitus Chronic wounds of the lower extremities more so on the right heel Previous cardiac arrest with extended stay in the intensive care unit in July 2023 History of complete rectal prolapse with previous attempts to replace Chronic obstructive pulmonary disease Former smoker History of previous urinary tract infections with E. coli and Proteus Plan: The patient was seen and evaluated Chest x-ray, labs and medications reviewed Currently on a Lasix drip at 10 mg/h Continue DuoNeb inhalations as needed Heparin for DVT prophylaxis We will continue to follow I have personally seen and examined the patient, performed the documentation and the assessment and plan as written. Number of minutes spent on the visit: 10.
--- NOTE | 2023-11-22 12:17 | P.GSCN ---
History of Present Illness History of present illness: 58-year-old female well-known known to me from the past in July we placed a right IJ catheter for renal failure which was removed prior to going home she came with shortness of breath history of chronic renal failure patient has history of diabetes hypertension chronic kidney disease patient scheduled to have a placement for dialysis catheter this patient had a dialysis catheter placed in the past we will check with the make sure vena cava is patent we will do the superior venacavogram On examination neck is supple no bruit appreciated Chest few crackles at lung bases. Second sound present Abdomen soft nontender Femorals are 1+ bilateral plan is placement dialysis catheter risk and complication discussed Past Medical History Past Medical History: Diabetes Mellitus, Hyperlipidemia, Hypertension, Renal Disease Additional Past Medical History / Comment(s): restless leg, neurothopy, Guillain-Perkins, dialysis History of Any Multi-Drug Resistant Organisms: None Reported Past Surgical History: Orthopedic Surgery, Tonsillectomy Additional Past Surgical History / Comment(s): "plate in left leg to straighten leg as a child" - plate removed, right total hip replacement due to a fracture from a fall, dialysis Past Anesthesia/Blood Transfusion Reactions: No Reported Reaction Past Psychological History: No Psychological Hx Reported Smoking Status: Former smoker Past Alcohol Use History: None Reported Past Drug Use History: None Reported Medications and Allergies Home Medications Medication Instructions Recorded Confirmed Type Aspirin 81 mg PO DAILY 90 Days #90 tab 06/25/23 11/21/23 Rx Clopidogrel [Plavix] 75 mg PO DAILY tab 09/27/23 11/21/23 Rx Docusate [Colace] 100 mg PO BID cap 09/27/23 11/21/23 Rx Fluticasone Nasal [place] [Flonase 2 spray EA NOSTRIL DAILY ml 09/27/23 11/21/23 Rx Nasal [place]] Folic Acid 1 mg PO DAILY tab 09/27/23 11/21/23 Rx Lidocaine 4% Patch 1 patch TOPICAL DAILY patch 09/27/23 11/21/23 Rx Melatonin 5 mg PO HS tab 09/27/23 11/21/23 Rx Thiamine [Vitamin B-1] 100 mg PO DAILY tab 09/27/23 11/21/23 Rx rOPINIRole HCL [Requip] 1 mg PO HS PRN tab 09/27/23 11/21/23 Rx Darbepoetin Frantz [Aranesp] 40 mcg SQ FR 10/09/23 11/21/23 History Ipratropium-Albuterol Nebulize 3 ml INHALATION RT-Q6H PRN 10/09/23 11/21/23 History [Duoneb 0.5 mg-3 mg/3 ml Soln] Multivitamins, Thera [Multivitamin 1 tab PO DAILY@0800 10/09/23 11/21/23 History (formulary)] Atorvastatin [Lipitor] 40 mg PO DAILY tab 10/21/23 11/21/23 Rx Calcium Acetate [PhosLo] 667 mg PO TID-W/MEALS tab 10/21/23 11/21/23 Rx Cholecalciferol [Vitamin D3 (25 25 mcg PO DAILY tab 10/21/23 11/21/23 Rx Mcg = 1000 Iu)] Dapagliflozin Propanediol [Farxiga] 10 mg PO DAILY tab 10/21/23 11/21/23 Rx Heparin Sodium,Porcine (1 ml) 5,000 unit SQ Q12HR each 10/21/23 11/21/23 Rx [Heparin Sodium] Bumetanide [Bumex] 1 mg PO TID@0500,1300,2100 11/21/23 11/21/23 History Ferrous Sulfate [Feosol] 325 mg PO BID 11/21/23 11/21/23 History HYDROcodone/APAP 5-325MG [[place] 1 tab PO Q4HR PRN 11/21/23 11/21/23 History 5-325] Insulin Lispro [humaLOG Kwikpen] See Protocol SQ ACHS@06,11,16,20 11/21/23 11/21/23 History Levothyroxine Sodium [Synthroid] 75 mcg PO DAILY@0600 11/21/23 11/21/23 History Omeprazole 20 mg PO DAILY 11/21/23 11/21/23 History hydrALAZINE HCL [Apresoline] 25 mg PO BID@0800,1600 11/21/23 11/21/23 History lisinopriL [Zestril] 2.5 mg PO DAILY@0800 11/21/23 11/21/23 History Allergies Allergy/AdvReac Type Severity Reaction Status Date / Time No Known Allergies Allergy Verified 11/20/23 20:00 Surgical - Exam Vital Signs Temp Pulse Resp BP Pulse Ox 97.8 F 82 22 139/77 96 11/20/23 19:55 11/20/23 19:55 11/20/23 19:55 11/20/23 19:55 11/20/23 19:55 Results - Labs 11/22/23 05:08 11/22/23 05:08 Abnormal Lab Results - Last 24 Hours (Table) 11/21/23 11/21/23 11/21/23 Range/Units 04:28 16:52 21:13 WBC (4.50-10.00) X 10*3/uL RBC (4.10-5.20) X 10*6/uL Hgb (12.0-15.0) g/dL Hct (37.2-46.3) % MCH (27.0-32.0) pg MCHC (32.0-37.0) g/dL RDW (11.5-14.5) % Neutrophils # (1.80-7.70) X 10*3/uL Lymphocytes # (0.90-5.00) X 10*3/uL Monocytes # (0.20-1.00) X 10*3/uL Potassium (3.5-5.5) mmol/L BUN (9.0-27.0) mg/dL Creatinine (0.6-1.5) mg/dL Est GFR (CKD-EPI) (>=60) BUN/Creatinine Ratio (12.00-20.00) Ratio Glucose (70-110) mg/dL POC Glucose (mg/dL) 179 H 253 H (70-110) mg/dL Calcium (8.7-10.3) mg/dL Iron 11 L (50-170) UG/DL TIBC 181 L (228-460) UG/DL % Saturation 6.08 L (12.00-45.00) Transferrin 129.0 L (204.0-354.0) mg/dL Total Bilirubin (0.3-1.2) mg/dL Alkaline Phosphatase (41-126) U/L Albumin (3.8-4.9) g/dL Globulin (1.6-3.3) g/dL Albumin/Globulin Ratio (1.60-3.17) Ratio 11/22/23 11/22/23 11/22/23 Range/Units 05:08 05:08 05:33 WBC 11.94 H (4.50-10.00) X 10*3/uL RBC 3.00 L (4.10-5.20) X 10*6/uL Hgb 7.9 L (12.0-15.0) g/dL Hct 27.9 L (37.2-46.3) % MCH 26.3 L (27.0-32.0) pg MCHC 28.3 L (32.0-37.0) g/dL RDW 17.5 H (11.5-14.5) % Neutrophils # 9.89 H (1.80-7.70) X 10*3/uL Lymphocytes # 0.58 L (0.90-5.00) X 10*3/uL Monocytes # 1.08 H (0.20-1.00) X 10*3/uL Potassium 5.7 H (3.5-5.5) mmol/L BUN 58.0 H (9.0-27.0) mg/dL Creatinine 2.7 H (0.6-1.5) mg/dL Est GFR (CKD-EPI) 20 L (>=60) BUN/Creatinine Ratio 21.48 H (12.00-20.00) Ratio Glucose 55 L (70-110) mg/dL POC Glucose (mg/dL) 65 L (70-110) mg/dL Calcium 7.8 L (8.7-10.3) mg/dL Iron (50-170) UG/DL TIBC (228-460) UG/DL % Saturation (12.00-45.00) Transferrin (204.0-354.0) mg/dL Total Bilirubin 0.2 L (0.3-1.2) mg/dL Alkaline Phosphatase 173 H (41-126) U/L Albumin 2.9 L (3.8-4.9) g/dL Globulin 3.7 H (1.6-3.3) g/dL Albumin/Globulin Ratio 0.78 L (1.60-3.17) Ratio 11/22/23 11/22/23 11/22/23 Range/Units 06:41 07:47 11:20 WBC (4.50-10.00) X 10*3/uL RBC (4.10-5.20) X 10*6/uL Hgb (12.0-15.0) g/dL Hct (37.2-46.3) % MCH (27.0-32.0) pg MCHC (32.0-37.0) g/dL RDW (11.5-14.5) % Neutrophils # (1.80-7.70) X 10*3/uL Lymphocytes # (0.90-5.00) X 10*3/uL Monocytes # (0.20-1.00) X 10*3/uL Potassium (3.5-5.5) mmol/L BUN (9.0-27.0) mg/dL Creatinine (0.6-1.5) mg/dL Est GFR (CKD-EPI) (>=60) BUN/Creatinine Ratio (12.00-20.00) Ratio Glucose (70-110) mg/dL POC Glucose (mg/dL) 60 L 65 L 115 H (70-110) mg/dL Calcium (8.7-10.3) mg/dL Iron (50-170) UG/DL TIBC (228-460) UG/DL % Saturation (12.00-45.00) Transferrin (204.0-354.0) mg/dL Total Bilirubin (0.3-1.2) mg/dL Alkaline Phosphatase (41-126) U/L Albumin (3.8-4.9) g/dL Globulin (1.6-3.3) g/dL Albumin/Globulin Ratio (1.60-3.17) Ratio Diabetes panel 11/22/23 Range/Units 05:08 Sodium 138 (135-145) mmol/L Potassium 5.7 H (3.5-5.5) mmol/L Chloride 104 (96-109) mmol/L Carbon Dioxide 25.3 (21.6-31.8) mmol/L BUN 58.0 H (9.0-27.0) mg/dL Creatinine 2.7 H (0.6-1.5) mg/dL Glucose 55 L (70-110) mg/dL Calcium 7.8 L (8.7-10.3) mg/dL AST 14 (13-35) U/L ALT 12 (8-44) U/L Alkaline Phosphatase 173 H (41-126) U/L Total Protein 6.6 (6.2-8.2) g/dL Albumin 2.9 L (3.8-4.9) g/dL Calcium panel 11/22/23 Range/Units 05:08 Calcium 7.8 L (8.7-10.3) mg/dL Albumin 2.9 L (3.8-4.9) g/dL Pituitary panel 11/22/23 Range/Units 05:08 Sodium 138 (135-145) mmol/L Potassium 5.7 H (3.5-5.5) mmol/L Chloride 104 (96-109) mmol/L Carbon Dioxide 25.3 (21.6-31.8) mmol/L BUN 58.0 H (9.0-27.0) mg/dL Creatinine 2.7 H (0.6-1.5) mg/dL Glucose 55 L (70-110) mg/dL Calcium 7.8 L (8.7-10.3) mg/dL Adrenal panel 11/22/23 Range/Units 05:08 Sodium 138 (135-145) mmol/L Potassium 5.7 H (3.5-5.5) mmol/L Chloride 104 (96-109) mmol/L Carbon Dioxide 25.3 (21.6-31.8) mmol/L BUN 58.0 H (9.0-27.0) mg/dL Creatinine 2.7 H (0.6-1.5) mg/dL Glucose 55 L (70-110) mg/dL Calcium 7.8 L (8.7-10.3) mg/dL Total Bilirubin 0.2 L (0.3-1.2) mg/dL AST 14 (13-35) U/L ALT 12 (8-44) U/L Alkaline Phosphatase 173 H (41-126) U/L Total Protein 6.6 (6.2-8.2) g/dL Albumin 2.9 L (3.8-4.9) g/dL
[2023-11-22] MEDS: MIDAZOLAM 2 MG/2 ML VIAL IVP ONE ×2 (12:33→12:43)
[2023-11-22] MEDS: LIDOCAINE 1% INJ 10MG/ML (20 ML MDV) SQ ONE (12:33)
[2023-11-22] MEDS: IOPAMIDOL-250 100ML BTL IVP ONE (12:55)
--- NOTE | 2023-11-22 13:16 | P.PCN ---
Description of Procedure: Preop diagnosis is acute chronic renal failure Postop the same Procedure superior venacavogram and a 19 cm dialysis catheter placed right jugular approach this patient was brought to the [facility] right of the neck and chest was prepped draped applied to sterile manner. This patient had a dialysis catheter placed in the past sound guided micropuncture and into the right jugular vein micropuncture guide was passed and 4 [place] sheath the top of the guidewire. Serial venacavogram was performed Supracaine normal was found to be patent after that we passed the regular guidewire which was parked at the inferior vena cava a tunnel was created created through the tunnel we brought 90 cm dialysis catheter dilator was advanced up the guidewire under fluoroscopy controlled sheath was advanced on the top of the guidewire and fluoroscopy controlled hi how are you doing through the sheath we placed a 19 cm dialysis catheter tip catheter superior vena cava and atrial junction flushed with heparin saline hep-locked secured with 3-0 nylon patient tarted the procedure well x-ray of the chest for dialysis catheter placement
[2023-11-22] MEDS: SODIUM CHLORIDE 0.9% 250 ML IV ONE (13:20)
--- NOTE | 2023-11-22 13:26 | IR ---
EXAMINATION TYPE: IR cvc insert central tunneled DATE OF EXAM: 11/22/2023 COMPARISON: NONE HISTORY: Fluoroscopy time. Fluoroscopy was provided to the referring clinician.
[2023-11-22 16:19] LABS: Glucose,Whole Blood 100 mg/dL (70-110)
--- NOTE | 2023-11-22 16:31 | XR ---
EXAMINATION TYPE: XR chest 1V confirm line [facility] DATE OF EXAM: 11/22/2023 COMPARISON: 10/27/2023 HISTORY: Hemodialysis catheter placement TECHNIQUE: Single frontal view of the chest is obtained. FINDINGS: There is been interval insertion of a right internal jugular vein hemodialysis catheter with tip of w hich is in the SVC/RA junction. There is no pneumothorax. There is no pleural effusion. The heart pulmonary vasculature unremarkable. The osseous structures ar e intact IMPRESSION: Right internal jugular hemodialysis catheter in satisfactory position with tip in the SVC/R junction. There is no pneumothorax.
--- NOTE | 2023-11-22 18:20 | P.PN ---
Subjective Progress Note Date: 11/22/23 HISTORY OF PRESENT ILLNESS: This is a 58-year-old female with a previous medical history signif icant for coronary artery disease status post PCI of the RCA 2023 with ischemic cardiomyopathy, hypertension and hypertensive cardiovascular disease, hyperlipidemia, diabetes mellitus type 2 uncontrolled, chronic kidney disease stage IIIb, anemia of chronic kidney disease, history of COPD, history of severe pulmonary hypertension, history of fracture of the medial lateral malleolus, chronic wound to the right heel that has been healed, patient has been followed by wa Tracy [facility]on and she was seen yesterday on round and she was complaining of increased weight gain with increased anasarca with increased fluid in bilateral lower extremity all the way up to the thigh all the way up to the abdominal area, was complaining of increased shortness of breath, she was on 2 L nasal cannula her oxygen saturation was 99%, patient was quite anxious and frantic at the [facility], she was directed to go to the emergency department for evaluation of acute and chronic systolic heart failure with worsening renal function due to cardiorenal syndrome and consultation was placed for cardiology and nephrology. 11/21: Patient is seen today in follow-up. She has had a dialysis catheter placed today by Dr. Dale. She remains on Lasix drip per nephrology. Extremity and abdominal edema are improving, patient appears to be better today, she has been been started on Solu-Medrol 60 mg IV push every 8 hours yesterday along with nebulized treatment, continue oxygen support, pulmonary evaluation is appreciated, continue to monitor the patient input and output and daily weight, she is less anxious today as she was started on Xanax yesterday as needed, I believe the nephrology is planning for the patient to go for hemodialysis permacatheter was placed by Dr. Dale early in the right internal jugular vein. I will follow-up with the patient very closely. Her prognosis continue to be guarded her daughter and her granddaughter and they were updated yesterday and they were aware that the patient may go for dialysis at this point. REVIEW OF SYSTEMS: Constitutional: No documented fever, no chills, no night sweats. No weight change. No weakness, fatigue or lethargy. She states she is feeling much better today she continues to have shortness of breath but improved. No daytime sleepiness. EENT: No headache. No blurred vision or double vision, no loss of vision. No loss of Hearing, no ringing in the ears, no dizziness. No nasal drainage or congestion. No epistaxis. No sore throat. Lungs: No shortness of breath, no cough, no sputum production. No wheezing. Reports dyspnea with activity. Cardiovascular: No chest pain, no lower extremity edema. No palpitations. No paroxysmal nocturnal dyspnea. No orthopnea. No lightheadedness or dizziness. No syncopal episodes. Abdominal: Reports abdominal pain. No nausea, vomiting. No diarrhea. No constipation. No bloody or tarry stools reports loss of appetite. Genitourinary: No dysuria, increased frequency, urgency. No urinary retention. Musculoskeletal: No myalgias. No muscle weakness, no gait dysfunction, no f requent falls. No back pain. No neck pain. Integumentary: No wounds, no lesions. No rash or pruritus. No unusual bruising. No change in hair or nails. Neurologic: No aphasia. No facial droop. No change in mentation. No head injury. No headache. No paralysis. No paresthesia. Psychiatric: No depression. No anxiety. No mood swings. Endocrine: No abnormal blood sugars. No weight change. PHYSICAL EXAMINATION: General: 58-year-old female sitting up in bed in mild respiratory dist ress. HEENT: Head is atraumatic, normocephalic, pupils were equal round reactive to light and recommendation, extraocular muscle movement were intact, sclera nonicteric, conjunctivae were pale, mucous membranes of the mouth are somewhat dry. Neck: Supple, Increased JVP, normal carotid upstroke bilaterally, no lymphadenopathy. Chest: Decreased breath sounds at the bases, few rhonchi, moderate expiratory wheezes, no chest wall tenderness, mild intercostal retractions. Heart: First heart sound is normal, second heart sound is normal there is systolic ejection murmur 2/6 located in the left sternal border. Abdomen: Soft, nontender, nondistended, positive bowel sounds increased abdominal wall edema. Extremities: There is +3 edema no calf tenderness DP +1 bilaterally. Right heel scab Neurologic examination: Patient is awake alert and oriented x3, cranial nerves II-12 appear grossly intact, muscle power were 3 out of 5 in upper extremities and 3 out of 5 in bilateral lower extremities, deep tendon reflexes normal bilaterally. ASSESSMENT AND PLAN: 1. Acute on chronic systolic heart failure due to ischemic cardiomyopathy, start the patient on Lasix drip 10 mg an hour and the plan is to proceed with hemodialysis after placing the permacatheter in place. Monitor input and output and daily weight, continue hydralazine 25 mg orally twice every day, continue Farxiga 10 mg once every day, we will obtain cardiology consultation as well as pulmonary consultation for possible acute respiratory failure. 2. Acute on chronic kidney disease stage IIIb due to cardiorenal syndrome cont inue patient on Lasix drip at 10 mg/h, monitor the patient input and output and daily weight, check ultrasound of the kidneys rule out any hydronephrosis, nephrology consultation, avoid nephrotoxins. 3. Acute hypoxemic respiratory failure due to acute on chronic systolic heart failure as well as acute exacerbation of COPD. Continue patient on Lasix drip at 10 mg/h,continue DuoNeb 3 manipulation 4 times every day, continue oxygen support, continue to monitor input and output and daily weight. 4. Coronary artery disease status post PCI of the RCA. Continue patient on aspirin 81 mg once every day, Plavix 75 mg orally, atorvastatin 40 mg orally once every day. Cardiology consultation. 5. Hypertension and hypertensive cardiovascular disease. Continue hydralazine 25 mg orally twice every day, monitor the patient blood pressure very closely. 6. Mixed hyperlipidemia. Continue patient on atorvastatin 40 mg orally, monitor lipid panel, keep LDL 55-70. 7. Diabetes mellitus type 2. Continue patient on sliding scale insulin. 8. Close leg syndrome. Continue ropinirole 1 mg orally at bedtime. 9. Anemia of chronic kidney disease. Continue patient on Aranesp 40 mcg subcutaneously every week. 10. Hypothyroidism. Continue levothyroxine 75 mcg orally once every day. 11. COPD exacerbation continue patient on DuoNeb 3 mm laceration 4 times every day, continue oxygen 2 L nasal cannula, 12. Chronic hypoxemic respiratory failure due to combination of nonischemic cardiomyopathy and COPD. Continue oxygen 2 L nasal cannula, continue DuoNeb 3 mm residual 4 times every day. 13. Subacute fracture of the medial and lateral malleolus currently in boot no surgical intervention is planned 14. GERD. Continue pantoprazole 40 mg once every day. 15. Medical debility. Physical therapy evaluation. 16. DVT prophylaxis. Heparin 5000 units subcutaneous every 12 hours. 17. GI prophylaxis. Continue PPI. 18. Overall prognosis is very guarded 19 patient is full code. Objective - Vital Signs Vital signs: Vital Signs Temp 98.1 F 11/22/23 07:14 Pulse 77 11/22/23 08:14 Resp 18 11/22/23 08:14 BP 119/62 11/22/23 07:14 Pulse Ox 95 11/22/23 08:06 FiO2 Intake & Output 11/21/23 11/22/23 11/22/23 18:59 06:59 18:59 Intake Total 720 80.667 115.5 Output Total 325 400 Balance 395 -319.333 115.5 Weight 61.5 kg Intake: IV 20 Intake, IV Titration 80.667 95.5 Amount Furosemide 100 mg In 80.667 95.5 Sodium Chloride 0.9% 90 ml @ 10 MG/HR 10 mls/hr IV .Q10H [facility] Rx#: [id number] Oral 720 Output: Urine 325 400 Other: Voiding Method Indwelling Catheter Indwelling Catheter Indwelling Catheter # Bowel Movements 1 - Labs CBC & Chem 7: 11/22/23 05:08 11/22/23 05:08 Labs: Abnormal Lab Results - Last 24 Hours (Table) 11/21/23 11/21/23 11/21/23 Range/Units 04:28 16:52 21:13 WBC (4.50-10.00) X 10*3/uL RBC (4.10-5.20) X 10*6/uL Hgb (12.0-15.0) g/dL Hct (37.2-46.3) % MCH (27.0-32.0) pg MCHC (32.0-37.0) g/dL RDW (11.5-14.5) % Neutrophils # (1.80-7.70) X 10*3/uL Lymphocytes # (0.90-5.00) X 10*3/uL Monocytes # (0.20-1.00) X 10*3/uL Potassium (3.5-5.5) mmol/L BUN (9.0-27.0) mg/dL Creatinine (0.6-1.5) mg/dL Est GFR (CKD-EPI) (>=60) BUN/Creatinine Ratio (12.00-20.00) Ratio Glucose (70-110) mg/dL POC Glucose (mg/dL) 179 H 253 H (70-110) mg/dL Calcium (8.7-10.3) mg/dL Iron 11 L (50-170) UG/DL TIBC 181 L (228-460) UG/DL % Saturation 6.08 L (12.00-45.00) Transferrin 129.0 L (204.0-354.0) mg/dL Total Bilirubin (0.3-1.2) mg/dL Alkaline Phosphatase (41-126) U/L Albumin (3.8-4.9) g/dL Globulin (1.6-3.3) g/dL Albumin/Globulin Ratio (1.60-3.17) Ratio 11/22/23 11/22/23 11/22/23 Range/Units 05:08 05:08 05:33 WBC 11.94 H (4.50-10.00) X 10*3/uL RBC 3.00 L (4.10-5.20) X 10*6/uL Hgb 7.9 L (12.0-15.0) g/dL Hct 27.9 L (37.2-46.3) % MCH 26.3 L (27.0-32.0) pg MCHC 28.3 L (32.0-37.0) g/dL RDW 17.5 H (11.5-14.5) % Neutrophils # 9.89 H (1.80-7.70) X 10*3/uL Lymphocytes # 0.58 L (0.90-5.00) X 10*3/uL Monocytes # 1.08 H (0.20-1.00) X 10*3/uL Potassium 5.7 H (3.5-5.5) mmol/L BUN 58.0 H (9.0-27.0) mg/dL Creatinine 2.7 H (0.6-1.5) mg/dL Est GFR (CKD-EPI) 20 L (>=60) BUN/Creatinine Ratio 21.48 H (12.00-20.00) Ratio Glucose 55 L (70-110) mg/dL POC Glucose (mg/dL) 65 L (70-110) mg/dL Calcium 7.8 L (8.7-10.3) mg/dL Iron (50-170) UG/DL TIBC (228-460) UG/DL % Saturation (12.00-45.00) Transferrin (204.0-354.0) mg/dL Total Bilirubin 0.2 L (0.3-1.2) mg/dL Alkaline Phosphatase 173 H (41-126) U/L Albumin 2.9 L (3.8-4.9) g/dL Globulin 3.7 H (1.6-3.3) g/dL Albumin/Globulin Ratio 0.78 L (1.60-3.17) Ratio 11/22/23 11/22/23 11/22/23 Range/Units 06:41 07:47 11:20 WBC (4.50-10.00) X 10*3/uL RBC (4.10-5.20) X 10*6/uL Hgb (12.0-15.0) g/dL Hct (37.2-46.3) % MCH (27.0-32.0) pg MCHC (32.0-37.0) g/dL RDW (11.5-14.5) % Neutrophils # (1.80-7.70) X 10*3/uL Lymphocytes # (0.90-5.00) X 10*3/uL Monocytes # (0.20-1.00) X 10*3/uL Potassium (3.5-5.5) mmol/L BUN (9.0-27.0) mg/dL Creatinine (0.6-1.5) mg/dL Est GFR (CKD-EPI) (>=60) BUN/Creatinine Ratio (12.00-20.00) Ratio Glucose (70-110) mg/dL POC Glucose (mg/dL) 60 L 65 L 115 H (70-110) mg/dL Calcium (8.7-10.3) mg/dL Iron (50-170) UG/DL TIBC (228-460) UG/DL % Saturation (12.00-45.00) Transferrin (204.0-354.0) mg/dL Total Bilirubin (0.3-1.2) mg/dL Alkaline Phosphatase (41-126) U/L Albumin (3.8-4.9) g/dL Globulin (1.6-3.3) g/dL Albumin/Globulin Ratio (1.60-3.17) Ratio
[2023-11-22 20:27] LABS: Glucose,Whole Blood 89 mg/dL (70-110)
[2023-11-23 06:07] LABS: Glucose,Whole Blood 155 mg/dL (70-110)
[2023-11-23] MEDS: DARBEPOETIN ALFA 40 MCG/0.4 ML SYRINGE SQ SCH (08:53)
[2023-11-23 10:08] LABS: Basophils # (A) 0.03 X 10*3/uL (0.00-0.10); Basophils % (A) 0.3 %; Eosinophils # (A) 0.19 X 10*3/uL (0.04-0.35); Eosinophils % (A) 2.1 %; HCT 28.8 % (37.2-46.3); Lymphocytes # (A) 0.47 X 10*3/uL (0.90-5.00); Lymphocytes % (A) 5.3 %; MCH 26.5 pg (27.0-32.0); MCHC 27.8 g/dL (32.0-37.0); MCV 95.4 FL (80.0-97.0); Mean Platelet Volume 11.9 FL (9.5-12.2); Monocytes # (A) 0.65 X 10*3/uL (0.20-1.00); Monocytes % (A) 7.3 %; NRBC Per 100 WBC 0 X 10*3/uL (0.00-0.01); Neutrophils # (A) 7.51 X 10*3/uL (1.80-7.70); Neutrophils % (A) 84.4 %; Platelet Count 169 X 10*3/uL (140-440); RBC 3.02 X 10*6/uL (4.10-5.20); RDW 17.3 % (11.5-14.5)
--- NOTE | 2023-11-23 10:24 | P.PN ---
Subjective Progress Note Date: 11/23/23 This is a 58-year-old female patient with a known history of chronic kidney disease with previous temporary hemodialysis, chronic anemia, coronary artery disease with previous stent to the RCA, previous cardiac arrest, nonhealing right heel pressure wound, hypertension, hyperlipidemia, diabetes mellitus, severe pulmonary hypertension, COPD, former smoker congestive heart failure. She presented here to the emergency room yesterday with complaints of increasing shortness of breath and swelling all over. Chest x-ray reviewed with hazy appearance representing atelectasis versus pulmonary edema. White count 0.9. Platelets 167. Sodium 138. Potassium 5.1. Bicarb 24. BUN 57. Creatinine 2.5. Glucose 127. proBNP 33,100. She is seen today in consultation on the regular medical floor. She is currently sitting up in a chair at the bedside. Awake and alert in no acute distress. Somewhat of a poor historian. She is maintaining good O2 saturations in the 90s on 2 L/min per nasal cannula. She is afebrile. Hemodynamically stable. The patient is seen today November 22, 2023 in follow-up on the regular medical floor. She is currently sitting up in a chair at the bedside. Awake and alert in no acute distress. Breathing a bit easier today compared to yesterday. She is maintaining O2 saturations in the 90s on 2 L/min per nasal cannula. She is afebrile. Hemodynamically stable. Follow-up chest x-ray shows mild improvement in the pulmonary venous congestion. Bilateral infiltrates and small effusions stable. She remains on a Lasix drip at 10 mg/h. White count 11.9. Hemoglobin 7.9. Platelets 182. Sodium 138. Potassium 5.7. Bicarb 25. BUN 58. Creatinine 2.7. Glucose 115. She remains on DuoNeb inhalations. Heparin for DVT prophylaxis. The patient is seen today November 23, 2023 in follow-up on the regular medical floor. She is currently sitting up in bed. Awake and alert in no acute distress. Maintaining O2 saturations in the 90s on 2 L/min per nasal cannula. She did have a permacath placed yesterday. She did receive hemodialysis with 2 L of fluid removed. Plan is for dialysis again today. White count 8.9. Hemoglobin 8.0. Platelets 169. Glucose 155. She remains on a Lasix drip at 10 mg/h. Heparin for DVT prophylaxis. Continued on bronchodilators. Objective - Vital Signs Vital signs: Vital Signs Temp 97.4 F L 11/23/23 07:08 Pulse 67 11/23/23 07:08 Resp 18 11/23/23 07:08 BP 125/67 11/23/23 07:08 Pulse Ox 92 L 11/23/23 07:08 FiO2 Intake & Output 11/22/23 11/23/23 11/23/23 18:59 06:59 18:59 Intake Total 207.5 590.333 Output Total 4800 Balance 207.5 -4209.667 Weight 61.5 kg Intake: IV 20 Intake, IV Titration 187.5 90.333 Amount Furosemide 100 mg In 187.5 90.333 Sodium Chloride 0.9% 90 ml @ 10 MG/HR 10 mls/hr IV .Q10H [facility] Rx#: [id number] Hemodialysis 500 Output: Urine 300 Hemodialysis 2500 Hemodialysis Net Amount 2000 Other: Voiding Method Indwelling Catheter Indwelling Catheter # Bowel Movements 1 1 - Exam GENERAL EXAM: Alert, 58-year-old female, on 2 L nasal cannula, in no apparent d istress. HEAD: Normocephalic. EYES: Normal reaction of pupils, equal size. NOSE: Clear with pink turbinates. THROAT: No erythema or exudates. NECK: No masses, no JVD. CHEST: No chest wall deformity. Right internal jugular HemoCath in place LUNGS: Equal air entry with crackles in the bilateral bases. CVS: S1 and S2 normal with no audible murmur, regular rhythm. ABDOMEN: No hepatosplenomegaly, normal bowel sounds, no guarding or rigidity. SPINE: No scoliosis or deformity SKIN: No rashes CENTRAL NERVOUS SYSTEM: No focal deficits, tone is normal in all 4 extremities. EXTREMITIES: There is 1-2+ peripheral edema. Right lower extremity in a hard boot. Peripheral pulses are intact. - Labs CBC & Chem 7: 11/23/23 03:51 11/22/23 05:08 Labs: Abnormal Lab Results - Last 24 Hours (Table) 11/22/23 11/23/23 11/23/23 Range/Units 11:20 03:51 06:06 RBC 3.02 L (4.10-5.20) X 10*6/uL Hgb 8.0 L (12.0-15.0) g/dL Hct 28.8 L (37.2-46.3) % MCH 26.5 L (27.0-32.0) pg MCHC 27.8 L (32.0-37.0) g/dL RDW 17.3 H (11.5-14.5) % Immature Gran # 0.05 H (0.00-0.04) X 10*3/uL Lymphocytes # 0.47 L (0.90-5.00) X 10*3/uL POC Glucose (mg/dL) 115 H 155 H (70-110) mg/dL Assessment and Plan Assessment: Acute hypoxic respiratory failure secondary to an acute exacerbation of diastolic congestive heart failure Chronic anemia Chronic kidney disease with previous hemodialysis and now hemodialysis resumed 11/22/2023 Coronary artery disease with previous stenting Pulmonary hypertension Hypertension Hyperlipidemia Diabetes mellitus Chronic wounds of the lower extremities more so on the right heel Previous cardiac arrest with extended stay in the intensive care unit in July 2023 History of complete rectal prolapse with previous attempts to replace Chronic obstructive pulmonary disease Former smoker History of previous urinary tract infections with E. coli and Proteus Plan: The patient was seen and evaluated Labs and medications reviewed Hemodialysis resumed yesterday Currently on a Lasix drip at 10 mg/h Continue DuoNeb inhalations as needed Heparin for DVT prophylaxis We will continue to follow I have personally seen and examined the patient, performed the documentation and the assessment and plan as written. Number of minutes spent on the visit: 10.
[2023-11-23 10:44] LABS: ALT 13 U/L (8-44); AST 15 U/L (13-35); Albumin 2.8 g/dL (3.8-4.9); Albumin/Globulin Ratio 0.76 Ratio (1.60-3.17); Alkaline Phosphatase 188 U/L (41-126); Calcium 7.8 mg/dL (8.7-10.3); Carbon Dioxide 23.5 mmol/L (21.6-31.8); Chloride 102 mmol/L (96-109); Globulin 3.7 g/dL (1.6-3.3); Glucose 135 mg/dL (70-110); Potassium 5.8 mmol/L (3.5-5.5); Sodium 138 mmol/L (135-145); Total Bilirubin 0.3 mg/dL (0.3-1.2); Total Protein 6.5 g/dL (6.2-8.2)
[2023-11-23 12:07] LABS: Glucose,Whole Blood 112 mg/dL (70-110)
--- NOTE | 2023-11-23 12:08 | P.PN ---
Subjective Progress Note Date: 11/23/23 This is a 58-year-old female patient with extensive cardiovascular history consistent of CAD with prior stenting of the RCA as well as cardiomyopathy with an ejection fraction of 40 to 45% as well as valvular heart disease with mitral and tricuspid regurgitation as well as chronic renal failure on dialysis as well as multiple comorbid conditions. November 23, 2023 The patient was seen and evaluated. She is on dialysis with the plan to remove 3 L at this point. She reports no pain in the chest at this point. She is slightly hypervolemic with upper and lower extremities edema but no symptoms of chest pain or chest discomfort. Currently she is on dual antiplatelet therapy as well as a statin. We will consider starting the patient on either SANDIP or ARB when she is stable from the nephrology standpoint of view and also consider adding SGLT2 inhibitors. The examination is remarkable for regular rhythm with a systolic murmur and clear breathing sounds bilaterally and mild upper and lower extremities edema noted. Assessment CAD with prior PCI Cardiomyopathy with EF between 40 to 45% Moderate mitral and tricuspid regurgitation Renal failure Chronic anemia Multiple comorbid conditions Plan Continue the current medical regimen Consider maximize medical treatment for cardiomyopathy Follow-up with the patient Objective - Vital Signs Vital signs: Vital Signs Temp 97.4 F L 11/23/23 07:08 Pulse 65 11/23/23 09:50 Resp 16 11/23/23 09:50 BP 104/64 11/23/23 09:50 Pulse Ox 99 11/23/23 09:50 FiO2 Intake & Output 11/22/23 11/23/23 11/23/23 18:59 06:59 18:59 Intake Total 207.5 590.333 Output Total 4800 Balance 207.5 -4209.667 Weight 61.5 kg Intake: IV 20 Intake, IV Titration 187.5 90.333 Amount Furosemide 100 mg In 187.5 90.333 Sodium Chloride 0.9% 90 ml @ 10 MG/HR 10 mls/hr IV .Q10H [facility] Rx#: [id number] Hemodialysis 500 Output: Urine 300 Hemodialysis 2500 Hemodialysis Net Amount 2000 Other: Voiding Method Indwelling Catheter Indwelling Catheter Indwelling Catheter # Bowel Movements 1 1 - Labs CBC & Chem 7: 11/23/23 03:51 11/23/23 03:51 Labs: Abnormal Lab Results - Last 24 Hours (Table) 11/23/23 11/23/23 11/23/23 Range/Units 03:51 03:51 06:06 RBC 3.02 L (4.10-5.20) X 10*6/uL Hgb 8.0 L (12.0-15.0) g/dL Hct 28.8 L (37.2-46.3) % MCH 26.5 L (27.0-32.0) pg MCHC 27.8 L (32.0-37.0) g/dL RDW 17.3 H (11.5-14.5) % Immature Gran # 0.05 H (0.00-0.04) X 10*3/uL Lymphocytes # 0.47 L (0.90-5.00) X 10*3/uL Potassium 5.8 H (3.5-5.5) mmol/L Anion Gap 12.50 H (4.00-12.00) mmol/L BUN 43.0 H (9.0-27.0) mg/dL Creatinine 2.3 H (0.6-1.5) mg/dL Est GFR (CKD-EPI) 24 L (>=60) Glucose 135 H (70-110) mg/dL POC Glucose (mg/dL) 155 H (70-110) mg/dL Calcium 7.8 L (8.7-10.3) mg/dL Alkaline Phosphatase 188 H (41-126) U/L Albumin 2.8 L (3.8-4.9) g/dL Globulin 3.7 H (1.6-3.3) g/dL Albumin/Globulin Ratio 0.76 L (1.60-3.17) Ratio
--- NOTE | 2023-11-23 14:17 | P.PN ---
Subjective patient is seen for follow-up for acute kidney injury, chronic kidney disease and volume overload. Patient did not have significant diuresis with Lasix drip and therefore she is scheduled for hemodialysis today. Status post hemodialysis catheter placement. Patient will be dialyzed today. She continues to have significant edema and mild shortness of breath. Objective - Vital Signs Vital signs: Vital Signs Temp 97.4 F L 11/23/23 07:08 Pulse 77 11/23/23 13:33 Resp 16 11/23/23 09:50 BP 104/64 11/23/23 09:50 Pulse Ox 96 11/23/23 13:23 FiO2 Intake & Output 11/22/23 11/23/23 11/23/23 18:59 06:59 18:59 Intake Total 207.5 590.333 Output Total 4800 Balance 207.5 -4209.667 Weight 61.5 kg Intake: IV 20 Intake, IV Titration 187.5 90.333 Amount Furosemide 100 mg In 187.5 90.333 Sodium Chloride 0.9% 90 ml @ 10 MG/HR 10 mls/hr IV .Q10H [facility] Rx#: [id number] Hemodialysis 500 Output: Urine 300 Hemodialysis 2500 Hemodialysis Net Amount 2000 Other: Voiding Method Indwelling Catheter Indwelling Catheter Indwelling Catheter # Bowel Movements 1 1 - Exam patient is awake, comfortable, in complaining of pain in the right side of the neck at the catheter site. Examination of the heart S1 and S2 Examination of the lungs bilateral breath sounds are heard with crackles at the basesExline abdomen is soft nontender Examination of lower extremity shows edema 3+ bilaterally [employer] exam grossly intact - Labs CBC & Chem 7: 11/23/23 03:51 11/23/23 03:51 Labs: Abnormal Lab Results - Last 24 Hours (Table) 11/23/23 11/23/23 11/23/23 Range/Units 03:51 03:51 06:06 RBC 3.02 L (4.10-5.20) X 10*6/uL Hgb 8.0 L (12.0-15.0) g/dL Hct 28.8 L (37.2-46.3) % MCH 26.5 L (27.0-32.0) pg MCHC 27.8 L (32.0-37.0) g/dL RDW 17.3 H (11.5-14.5) % Immature Gran # 0.05 H (0.00-0.04) X 10*3/uL Lymphocytes # 0.47 L (0.90-5.00) X 10*3/uL Potassium 5.8 H (3.5-5.5) mmol/L Anion Gap 12.50 H (4.00-12.00) mmol/L BUN 43.0 H (9.0-27.0) mg/dL Creatinine 2.3 H (0.6-1.5) mg/dL Est GFR (CKD-EPI) 24 L (>=60) Glucose 135 H (70-110) mg/dL POC Glucose (mg/dL) 155 H (70-110) mg/dL Calcium 7.8 L (8.7-10.3) mg/dL Alkaline Phosphatase 188 H (41-126) U/L Albumin 2.8 L (3.8-4.9) g/dL Globulin 3.7 H (1.6-3.3) g/dL Albumin/Globulin Ratio 0.76 L (1.60-3.17) Ratio / Range/Units 12:05 RBC (4.10-5.20) X 10*6/uL Hgb (12.0-15.0) g/dL Hct (37.2-46.3) % MCH (27.0-32.0) pg MCHC (32.0-37.0) g/dL RDW (11.5-14.5) % Immature Gran # (0.00-0.04) X 10*3/uL Lymphocytes # (0.90-5.00) X 10*3/uL Potassium (3.5-5.5) mmol/L Anion Gap (4.00-12.00) mmol/L BUN (9.0-27.0) mg/dL Creatinine (0.6-1.5) mg/dL Est GFR (CKD-EPI) (>=60) Glucose (70-110) mg/dL POC Glucose (mg/dL) 112 H (70-110) mg/dL Calcium (8.7-10.3) mg/dL Alkaline Phosphatase (41-126) U/L Albumin (3.8-4.9) g/dL Globulin (1.6-3.3) g/dL Albumin/Globulin Ratio (1.60-3.17) Ratio Assessment and Plan Assessment: 1. Acute kidney injury, cardiorenal, with indwelling [place] catheter. History of hemodialysis dependent acute kidney injury which recovered. Patient did not diurese much with Lasix drip and therefore will proceed with hemodialysis. 2. Volume overload 3. Acute on chronic systolic CHF. EF is 40-45%on echocardiogram on 10/15/2023 4. History of cardiac arrest 5. Chronic kidney disease NKF stage IIIB to IV with baseline creatinine more recently around 1.9-2 mg/dL. Plan: proceed with hemodialysis today and in a.m. Continue with Lasix drip for now. Repeat labs in a.m.
--- NOTE | 2023-11-23 14:20 | P.PN ---
Subjective patient is seen for follow-up for acute kidney injury, chronic kidney disease and volume overload. Patient did not have significant diuresis with Lasix drip and therefore she has been restarted on hemodialysis. Status post UF of 2 L yesterday. Seen on hemodialysis again today. Complaining of pain in the right side of the neck at the catheter site. No active bleeding noted. Objective - Vital Signs Vital signs: Vital Signs Temp 97.4 F L 11/23/23 07:08 Pulse 77 11/23/23 13:33 Resp 16 11/23/23 09:50 BP 104/64 11/23/23 09:50 Pulse Ox 96 11/23/23 13:23 FiO2 Intake & Output 11/22/23 11/23/23 11/23/23 18:59 06:59 18:59 Intake Total 207.5 590.333 Output Total 4800 Balance 207.5 -4209.667 Weight 61.5 kg Intake: IV 20 Intake, IV Titration 187.5 90.333 Amount Furosemide 100 mg In 187.5 90.333 Sodium Chloride 0.9% 90 ml @ 10 MG/HR 10 mls/hr IV .Q10H [facility] Rx#: [id number] Hemodialysis 500 Output: Urine 300 Hemodialysis 2500 Hemodialysis Net Amount 2000 Other: Voiding Method Indwelling Catheter Indwelling Catheter Indwelling Catheter # Bowel Movements 1 1 - Exam patient is awake, comfortable, in complaining of pain in the right side of the neck at the catheter site. Examination of the heart S1 and S2 Examination of the lungs bilateral breath sounds are heard with crackles at the basesExline abdomen is soft nontender Examination of lower extremity shows edema 3+ bilaterally HIDE SALTER exam grossly intact - Labs CBC & Chem 7: 11/23/23 03:51 11/23/23 03:51 Labs: Abnormal Lab Results - Last 24 Hours (Table) 11/23/23 11/23/23 11/23/23 Range/Units 03:51 03:51 06:06 RBC 3.02 L (4.10-5.20) X 10*6/uL Hgb 8.0 L (12.0-15.0) g/dL Hct 28.8 L (37.2-46.3) % MCH 26.5 L (27.0-32.0) pg MCHC 27.8 L (32.0-37.0) g/dL RDW 17.3 H (11.5-14.5) % Immature Gran # 0.05 H (0.00-0.04) X 10*3/uL Lymphocytes # 0.47 L (0.90-5.00) X 10*3/uL Potassium 5.8 H (3.5-5.5) mmol/L Anion Gap 12.50 H (4.00-12.00) mmol/L BUN 43.0 H (9.0-27.0) mg/dL Creatinine 2.3 H (0.6-1.5) mg/dL Est GFR (CKD-EPI) 24 L (>=60) Glucose 135 H (70-110) mg/dL POC Glucose (mg/dL) 155 H (70-110) mg/dL Calcium 7.8 L (8.7-10.3) mg/dL Alkaline Phosphatase 188 H (41-126) U/L Albumin 2.8 L (3.8-4.9) g/dL Globulin 3.7 H (1.6-3.3) g/dL Albumin/Globulin Ratio 0.76 L (1.60-3.17) Ratio 11/23/23 Range/Units 12:05 RBC (4.10-5.20) X 10*6/uL Hgb (12.0-15.0) g/dL Hct (37.2-46.3) % MCH (27.0-32.0) pg MCHC (32.0-37.0) g/dL RDW (11.5-14.5) % Immature Gran # (0.00-0.04) X 10*3/uL Lymphocytes # (0.90-5.00) X 10*3/uL Potassium (3.5-5.5) mmol/L Anion Gap (4.00-12.00) mmol/L BUN (9.0-27.0) mg/dL Creatinine (0.6-1.5) mg/dL Est GFR (CKD-EPI) (>=60) Glucose (70-110) mg/dL POC Glucose (mg/dL) 112 H (70-110) mg/dL Calcium (8.7-10.3) mg/dL Alkaline Phosphatase (41-126) U/L Albumin (3.8-4.9) g/dL Globulin (1.6-3.3) g/dL Albumin/Globulin Ratio (1.60-3.17) Ratio Assessment and Plan Assessment: 1. Acute kidney injury, cardiorenal, with indwelling Hays catheter. History of hemodialysis dependent acute kidney injury which recovered. Patient did not diurese much with Lasix drip and therefore has been restarted on hemodialysis on 11/22/2023. 2. Volume overload 3. Acute on chronic systolic CHF. EF is 40-45%on echocardiogram on 10/15/2023 4. History of cardiac arrest 5. Chronic kidney disease NKF stage IIIB to IV with baseline creatinine more recently around 1.9-2 mg/dL. Plan: hemodialysis today with UF of 2-3 L as tolerated Accurate I's and O's DC Lasix drip and switch to oral torsemide. Continue Aranesp
[2023-11-23 16:44] LABS: Glucose,Whole Blood 109 mg/dL (70-110)
--- NOTE | 2023-11-23 18:27 | P.PN ---
Subjective HISTORY OF PRESENT ILLNESS: This is a 58-year-old female with a previous medical history significant for coronary artery disease status post PCI of the RCA 2023 with ischemic cardiomyopathy, hypertension and hypertensive cardiovascular disease, hyperlipidemia, diabetes mellitus type 2 uncontrolled, chronic kidney disease stage IIIb, anemia of chronic kidney disease, history of COPD, history of severe pulmonary hypertension, history of fracture of the medial lateral malleolus, chronic wound to the right heel that has been healed, patient has been followed by [facility] and she was seen yesterday on round and she was complaining of increased weight gain with increased anasarca with increased fluid in bilateral lower extremity all the way up to the thigh all the way up to the abdominal area, was complaining of increased shortness of breath, she was on 2 L nasal cannula her oxygen saturation was 99%, patient was quite anxious and frantic at the [facility], she was directed to go to the emergency department for evaluation of acute and chronic systolic heart failure with worsening renal function due to cardiorenal syndrome and consultation was placed for cardiology and nephrology. 11/21: Patient is seen today in follow-up. She has had a dialysis catheter placed today by Dr. Dale. She remains on Lasix drip per nephrology. Extremity and abdominal edema are improving, patient appears to be better today, she has been been started on Solu-Medrol 60 mg IV push every 8 hours yesterday along with nebulized treatment, continue oxygen support, pulmonary evaluation is appreciated, continue to monitor the patient input and output and daily weight, she is less anxious today as she was started on Xanax yesterday as needed, I believe the nephrology is planning for the patient to go for hemodialysis perm acatheter was placed by Dr. Dale early in the right internal jugular vein. I will follow-up with the patient very closely. Her prognosis continue to be guarded her daughter and her granddaughter and they were updated yesterday and they were aware that the patient may go for dialysis at this point. 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 day per lead miner Labs reviewed and looks improving leukocytosis, hemoglobin stable at 8.0 creatinine 2.3 and potassium 5.8 Lisinopril remains on hold Objective - Vital Signs Vital signs: Vital Signs Temp 97.4 F L 11/23/23 07:08 Pulse 67 11/23/23 07:08 Resp 18 11/23/23 07:08 BP 125/67 11/23/23 07:08 Pulse Ox 92 L 11/23/23 07:08 FiO2 Intake & Output 11/22/23 11/23/23 11/23/23 18:59 06:59 18:59 Intake Total 207.5 590.333 Output Total 4800 Balance 207.5 -4209.667 Weight 61.5 kg Intake: IV 20 Intake, IV Titration 187.5 90.333 Amount Furosemide 100 mg In 187.5 90.333 Sodium Chloride 0.9% 90 ml @ 10 MG/HR 10 mls/hr IV .Q10H [facility] Rx#: [id number] Hemodialysis 500 Output: Urine 300 Hemodialysis 2500 Hemodialysis Net Amount 2000 Other: Voiding Method Indwelling Catheter Indwelling Catheter Indwelling Catheter # Bowel Movements 1 1 - Exam GENERAL: The patient is alert and oriented x3, not in any acute distress. Well developed, well nourished. HEENT: Pupils are round and equally reacting to light. EOMI. No scleral icterus. No conjunctival pallor. Normocephalic, atraumatic. No pharyngeal erythema. No thyromegaly. CARDIOVASCULAR: S1 and S2 present. No murmurs, rubs, or gallops. PULMONARY: Chest is clear to auscultation, no wheezing , no crackles. ABDOMEN: Soft, nontender, nondistended, normoactive bowel sounds. No palpable organomegaly. MUSCULOSKELETAL: No joint swelling or deformity. EXTREMITIES: No cyanosis, clubbing, or pedal edema. NEUROLOGICAL: Gross neurological examination did not reveal any focal deficits. SKIN: No rashes. no petechiae. - Labs CBC & Chem 7: 11/23/23 03:51 11/23/23 03:51 Labs: Abnormal Lab Results - Last 24 Hours (Table) 11/22/23 11/23/23 11/23/23 Range/Units 11:20 03:51 03:51 RBC 3.02 L (4.10-5.20) X 10*6/uL Hgb 8.0 L (12.0-15.0) g/dL Hct 28.8 L (37.2-46.3) % MCH 26.5 L (27.0-32.0) pg MCHC 27.8 L (32.0-37.0) g/dL RDW 17.3 H (11.5-14.5) % Immature Gran # 0.05 H (0.00-0.04) X 10*3/uL Lymphocytes # 0.47 L (0.90-5.00) X 10*3/uL Potassium 5.8 H (3.5-5.5) mmol/L Anion Gap 12.50 H (4.00-12.00) mmol/L BUN 43.0 H (9.0-27.0) mg/dL Creatinine 2.3 H (0.6-1.5) mg/dL Est GFR (CKD-EPI) 24 L (>=60) Glucose 135 H (70-110) mg/dL POC Glucose (mg/dL) 115 H (70-110) mg/dL Calcium 7.8 L (8.7-10.3) mg/dL Alkaline Phosphatase 188 H (41-126) U/L Albumin 2.8 L (3.8-4.9) g/dL Globulin 3.7 H (1.6-3.3) g/dL Albumin/Globulin Ratio 0.76 L (1.60-3.17) Ratio / Range/Units 06:06 RBC (4.10-5.20) X 10*6/uL Hgb (12.0-15.0) g/dL Hct (37.2-46.3) % MCH (27.0-32.0) pg MCHC (32.0-37.0) g/dL RDW (11.5-14.5) % Immature Gran # (0.00-0.04) X 10*3/uL Lymphocytes # (0.90-5.00) X 10*3/uL Potassium (3.5-5.5) mmol/L Anion Gap (4.00-12.00) mmol/L BUN (9.0-27.0) mg/dL Creatinine (0.6-1.5) mg/dL Est GFR (CKD-EPI) (>=60) Glucose (70-110) mg/dL POC Glucose (mg/dL) 155 H (70-110) mg/dL Calcium (8.7-10.3) mg/dL Alkaline Phosphatase (41-126) U/L Albumin (3.8-4.9) g/dL Globulin (1.6-3.3) g/dL Albumin/Globulin Ratio (1.60-3.17) Ratio Assessment and Plan Assessment: ASSESSMENT AND PLAN: 1. Acute on chronic systolic heart failure due to ischemic cardiomyopathy, start the patient on Lasix drip 10 mg an hour and the plan is to proceed with hemodialysis after placing the permacatheter in place. Monitor input and output and daily weight, continue hydralazine 25 mg orally twice every day, continue Farxiga 10 mg once every day, we will obtain cardiology consultation as well as pulmonary consultation for possible acute respiratory failure. 2. Acute on chronic kidney disease stage IIIb due to cardiorenal syndrome continue patient on Lasix drip at 10 mg/h, monitor the patient input and output and daily weight, check ultrasound of the kidneys rule out any hydronephrosis, nephrology consultation, avoid nephrotoxins. 3. Acute hypoxemic respiratory failure due to acute on chronic systolic heart failure as well as acute exacerbation of COPD. Continue patient on Lasix drip at 10 mg/h,continue DuoNeb 3 manipulation 4 times every day, continue oxygen support, continue to monitor input and output and daily weight. 4. Coronary artery disease status post PCI of the RCA. Continue patient on aspirin 81 mg once every day, Plavix 75 mg orally, atorvastatin 40 mg orally once every day. Cardiology consultation. 5. Hypertension and hypertensive cardiovascular disease. Continue hydralazine 25 mg orally twice every day, monitor the patient blood pressure very closely. 6. Mixed hyperlipidemia. Continue patient on atorvastatin 40 mg orally, monitor lipid panel, keep LDL 55-70. 7. Diabetes mellitus type 2. Continue patient on sliding scale insulin. 8. Close leg syndrome. Continue ropinirole 1 mg orally at bedtime. 9. Anemia of chronic kidney disease. Continue patient on Aranesp 40 mcg subcutaneously every week. 10. Hypothyroidism. Continue levothyroxine 75 mcg orally once every day. 11. COPD exacerbation continue patient on DuoNeb 3 mm laceration 4 times every day, continue oxygen 2 L nasal cannula, 12. Chronic hypoxemic respiratory failure due to combination of nonischemic cardiomyopathy and COPD. Continue oxygen 2 L nasal cannula, continue DuoNeb 3 mm residual 4 times every day. 13. Subacute fracture of the medial and lateral malleolus currently in boot no surgical intervention is planned 14. GERD. Continue pantoprazole 40 mg once every day. 15. Medical debility. Physical therapy evaluation. 16. DVT prophylaxis. Heparin 5000 units subcutaneous every 12 hours. 17. GI prophylaxis. Continue PPI. 18. Overall prognosis is very guarded 19 patient is full code. 20. Fall a in the hospital on 11/22, no head trauma. Continue monitoring with fall precaution. Physical therapy already evaluated the patient and recommended subacute rehab, social media strategist consult
[2023-11-23 19:09] LABS: Glucose,Whole Blood 126 mg/dL (70-110)
[2023-11-23] MEDS: ZINC OXIDE PASTE (Z-GUARD) 1 APPLIC TOPICAL PRN (22:46)
[2023-11-24 06:15] LABS: Glucose,Whole Blood 119 mg/dL (70-110)
--- NOTE | 2023-11-24 11:08 | P.PN ---
Subjective Progress Note Date: 11/24/23 This is a 58-year-old female patient with extensive cardiovascular history consistent of CAD with prior stenting of the RCA as well as cardiomyopathy with an ejection fraction of 40 to 45% as well as valvular heart disease with mitral and tricuspid regurgitation as well as chronic renal failure on dialysis as well as multiple comorbid conditions. November 23, 2023 The patient was seen and evaluated. She is on dialysis with the plan to remove 3 L at this point. She reports no pain in the chest at this point. She is slightly hypervolemic with upper and lower extremities edema but no symptoms of chest pain or chest discomfort. Currently she is on dual antiplatelet therapy as well as a statin. We will consider starting the patient on either SANDIP or ARB when she is stable from the nephrology standpoint of view and also consider adding SGLT2 inhibitors. The examination is remarkable for regular rhythm with a systolic murmur and clear breathing sounds bilaterally and mild upper and lower extremities edema noted. November 24, 2023 The patient was seen and evaluated this morning. She continues to be on dialysis. She is asymptomatic from the cardiac standpoint of view. She is hemodynamically stable. Overall she seems to be euvolemic. She is on aspirin and Plavix and statin. She is not on any cardiomyopathy medication given the situation with her renal failure. The examination is remarkable for regular rhythm with a systolic murmur at the right upper sternal border and diminished breathing sounds bilaterally and no edema was noted in the lower extremities Assessment CAD with prior PCI Cardiomyopathy with EF between 40 to 45% Moderate mitral and tricuspid regurgitation Renal failure Chronic anemia Multiple comorbid conditions Plan Continue the current medical regimen Consider maximize medical treatment for cardiomyopathy Follow-up with the patient Objective - Vital Signs Vital signs: Vital Signs Temp 97.5 F L 11/24/23 07:24 Pulse 68 11/24/23 07:24 Resp 18 11/24/23 07:24 BP 122/74 11/24/23 07:24 Pulse Ox 90 L 11/24/23 07:24 FiO2 Intake & Output 11/23/23 11/24/23 11/24/23 18:59 06:59 18:59 Intake Total 500 Output Total 6500 200 Balance -6000 -200 Weight 56 kg Intake: Hemodialysis 500 Output: Urine 200 Hemodialysis 3500 Hemodialysis Net Amount 3000 Other: Voiding Method Indwelling Catheter Indwelling Catheter Indwelling Catheter # Bowel Movements 2 - Labs CBC & Chem 7: 11/23/23 03:51 11/23/23 03:51 Labs: Abnormal Lab Results - Last 24 Hours (Table) 11/23/23 11/23/23 11/24/23 Range/Units 12:05 19:06 06:13 POC Glucose (mg/dL) 112 H 126 H 119 H (70-110) mg/dL
--- NOTE | 2023-11-24 11:38 | P.PN ---
Subjective Progress Note Date: 11/24/23 This is a 58-year-old female patient with a known history of chronic kidney disease with previous temporary hemodialysis, chronic anemia, coronary artery disease with previous stent to the RCA, previous cardiac arrest, nonhealing right heel pressure wound, hypertension, hyperlipidemia, diabetes mellitus, severe pulmonary hypertension, COPD, former smoker congestive heart failure. She presented here to the emergency room yesterday with complaints of increasing shortness of breath and swelling all over. Chest x-ray reviewed with hazy appearance representing atelectasis versus pulmonary edema. White count 0.9. Platelets 167. Sodium 138. Potassium 5.1. Bicarb 24. BUN 57. Creatinine 2.5. Glucose 127. proBNP 33,100. She is seen today in consultation on the regular medical floor. She is currently sitting up in a chair at the bedside. Awake and alert in no acute distress. Somewhat of a poor historian. She is maintaining good O2 saturations in the 90s on 2 L/min per nasal cannula. She is afebrile. Hemodynamically stable. The patient is seen today November 22, 2023 in follow-up on the regular medical floor. She is currently sitting up in a chair at the bedside. Awake and alert in no acute distress. Breathing a bit easier today compared to yesterday. She is maintaining O2 saturations in the 90s on 2 L/min per nasal cannula. She is afebrile. Hemodynamically stable. Follow-up chest x-ray shows mild improvement in the pulmonary venous congestion. Bilateral infiltrates and small effusions stable. She remains on a Lasix drip at 10 mg/h. White count 11.9. Hemoglobin 7.9. Platelets 182. Sodium 138. Potassium 5.7. Bicarb 25. BUN 58. Creatinine 2.7. Glucose 115. She remains on DuoNeb inhalations. Heparin for DVT prophylaxis. The patient is seen today November 23, 2023 in follow-up on the regular medical floor. She is currently sitting up in bed. Awake and alert in no acute distress. Maintaining O2 saturations in the 90s on 2 L/min per nasal cannula. She did have a permacath placed yesterday. She did receive hemodialysis with 2 L of fluid removed. Plan is for dialysis again today. White count 8.9. Hemoglobin 8.0. Platelets 169. Glucose 155. She remains on a Lasix drip at 10 mg/h. Heparin for DVT prophylaxis. Continued on bronchodilators. The patient is seen today November 24, 2023 in follow-up on the regular medical floor. She is currently resting comfortably in bed. Awake and alert in no acute distress. She is maintaining O2 saturations in the 90s on 2 L/min per nasal cannula. She remains on bronchodilators. Heparin for DVT prophylaxis. She is continued on hemodialysis with another 3 L of fluid removed today. Glucose 119. Objective - Vital Signs Vital signs: Vital Signs Temp 97.5 F L 11/24/23 07:24 Pulse 68 11/24/23 07:24 Resp 18 11/24/23 07:24 BP 122/74 11/24/23 07:24 Pulse Ox 90 L 11/24/23 07:24 FiO2 Intake & Output 11/23/23 11/24/23 11/24/23 18:59 06:59 18:59 Intake Total 500 Output Total 6500 200 Balance -6000 -200 Weight 56 kg Intake: Hemodialysis 500 Output: Urine 200 Hemodialysis 3500 Hemodialysis Net Amount 3000 Other: Voiding Method Indwelling Catheter Indwelling Catheter Indwelling Catheter # Bowel Movements 2 - Exam GENERAL EXAM: Alert, 58-year-old female, resting comfortably in bed, on 2 L nasal cannula, in no apparent distress. HEAD: Normocephalic. EYES: Normal reaction of pupils, equal size. NOSE: Clear with pink turbinates. THROAT: No erythema or exudates. NECK: No masses, no JVD. CHEST: No chest wall deformity. Right internal jugular HemoCath in place LUNGS: Equal air entry with crackles in the bilateral bases. CVS: S1 and S2 normal with no audible murmur, regular rhythm. ABDOMEN: No hepatosplenomegaly, normal bowel sounds, no guarding or rigidity. SPINE: No scoliosis or deformity SKIN: No rashes CENTRAL NERVOUS SYSTEM: No focal deficits, tone is normal in all 4 extremities. EXTREMITIES: There is 1-2+ peripheral edema. Right lower extremity in a hard boot. Peripheral pulses are intact. - Labs CBC & Chem 7: 11/23/23 03:51 11/23/23 03:51 Labs: Abnormal Lab Results - Last 24 Hours (Table) 11/23/23 11/23/23 11/24/23 Range/Units 12:05 19:06 06:13 POC Glucose (mg/dL) 112 H 126 H 119 H (70-110) mg/dL Assessment and Plan Assessment: Acute hypoxic respiratory failure secondary to an acute exacerbation of diastolic congestive heart failure Chronic anemia Chronic kidney disease with previous hemodialysis and now hemodialysis resumed 11/22/2023 Coronary artery disease with previous stenting Pulmonary hypertension Hypertension Hyperlipidemia Diabetes mellitus Chronic wounds of the lower extremities more so on the right heel Previous cardiac arrest with extended stay in the intensive care unit in July 2023 History of complete rectal prolapse with previous attempts to replace Chronic obstructive pulmonary disease Former smoker History of previous urinary tract infections with E. coli and Proteus Plan: The patient was seen and evaluated Labs and medications reviewed Hemodialysis continued per nephrology Continue DuoNeb inhalations as needed Heparin for DVT prophylaxis We will continue to follow I have personally seen and examined the patient, performed the documentation and the assessment and plan as written. Number of minutes spent on the visit: 10.
[2023-11-24 11:44] LABS: Glucose,Whole Blood 130 mg/dL (70-110)
--- NOTE | 2023-11-24 14:09 | P.PN ---
Subjective patient is seen for follow-up for acute kidney injury, chronic kidney disease and volume overload. Patient did not have significant diuresis with Lasix drip and therefore she has been restarted on hemodialysis. Lasix drip has been discontinued. Patient is complaining of significantly decreased hearing. Status post UF of 3 L yesterday. No shortness of breath noted. patient continues to complain of pain in the right side of the neck. No ble eding noted. Currently receiving sponge bath. Objective - Vital Signs Vital signs: Vital Signs Temp 97.5 F L 11/24/23 07:24 Pulse 72 11/24/23 13:04 Resp 18 11/24/23 13:04 BP 122/74 11/24/23 07:24 Pulse Ox 90 L 11/24/23 07:24 FiO2 Intake & Output 11/23/23 11/24/23 11/24/23 18:59 06:59 18:59 Intake Total 500 Output Total 6500 200 Balance -6000 -200 Weight 56 kg Intake: Hemodialysis 500 Output: Urine 200 Hemodialysis 3500 Hemodialysis Net Amount 3000 Other: Voiding Method Indwelling Catheter Indwelling Catheter Indwelling Catheter # Bowel Movements 2 - Exam patient is awake, comfortable, in complaining of pain in the right side of the neck at the catheter site. 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 Acute kidney injury, cardiorenal, with indwelling Hays catheter. History of hemodialysis dependent acute kidney injury which recovered. Patient did not diurese much with Lasix drip and therefore has been restarted on hemodialysis on 11/22/2023. 2. Volume overload 3. Acute on chronic systolic CHF. EF is 40-45%on echocardiogram on 10/15/2023 4. History of cardiac arrest 5. Chronic kidney disease NKF stage IIIB to IV with baseline creatinine more recently around 1.9-2 mg/dL. 6. Decreased hearing. Patient has been off of Lasix drip. She continues to complain of significant decrease in hearing. We will consult ENT. Plan: hemodialysis in a.m. Accurate I's and O's continue with torsemide Consult ENT for significant change in hearing while on Lasix drip. Now discontinued. Continue Aranesp
[2023-11-24 16:52] LABS: Glucose,Whole Blood 134 mg/dL (70-110)
[2023-11-24 16:54] LABS: Hepatitis B Surface Antigen Nonreactive (Nonreactive)
[2023-11-24 17:49] LABS: Hepatitis B Surface AB- Quant 3.5 mIU/mL
[2023-11-24 20:50] LABS: Glucose,Whole Blood 139 mg/dL (70-110)
--- NOTE | 2023-11-25 00:14 | P.PN ---
Subjective HISTORY OF PRESENT ILLNESS: This is a 58-year-old female with a previous medical history significant for coronary artery disease status post PCI of the RCA 2023 with ischemic cardiomyopathy, hypertension and hypertensive cardiovascular disease, hyperlipidemia, diabetes mellitus type 2 uncontrolled, chronic kidney disease stage IIIb, anemia of chronic kidney disease, history of COPD, history of severe pulmonary hypertension, history of fracture of the medial lateral malleolus, chronic wound to the right heel that has been healed, patient has been followed by [facility] and she was seen yesterday on round and she was complaining of increased weight gain with increased anasarca with increased fluid in bilateral lower extremity all the way up to the thigh all the way up to the abdominal area, was complaining of increased shortness of breath, she was on 2 L nasal cannula her oxygen saturation was 99%, patient was quite anxious and frantic at the skilled nursing, she was directed to go to the emergency department for evaluation of acute and chronic systolic heart failure with worsening renal function due to cardiorenal syndrome and consultation was placed for cardiology and nephrology. 11/21: Patient is seen today in follow-up. She has had a dialysis catheter placed today by Dr. Dale. She remains on Lasix drip per nephrology. Extremity and abdominal edema are improving, patient appears to be better today, she has been been started on Solu-Medrol 60 mg IV push every 8 hours yesterday along with nebulized treatment, continue oxygen support, pulmonary evaluation is appreciated, continue to monitor the patient input and output and daily weight, she is less anxious today as she was started on Xanax yesterday as needed, I believe the nephrology is planning for the patient to go for hemodialysis perm acatheter was placed by Dr. Dale early in the right internal jugular vein. I will follow-up with the patient very closely. Her prognosis continue to be guarded her daughter and her granddaughter and they were updated yesterday and they were aware that the patient may go for dialysis at this point. 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 day per optical goods worker Labs reviewed and looks improving leukocytosis, hemoglobin stable at 8.0 creatinine 2.3 and potassium 5.8 Lisinopril remains on hold 11/23 Patient awake alert No back pain She is getting hemodialysis Complains from pain all over her body Objective - Vital Signs Vital signs: Vital Signs Temp 97.5 F L 11/24/23 07:24 Pulse 72 11/24/23 13:04 Resp 18 11/24/23 13:04 BP 122/74 11/24/23 07:24 Pulse Ox 90 L 11/24/23 07:24 FiO2 Intake & Output 11/23/23 11/24/23 11/24/23 18:59 06:59 18:59 Intake Total 500 Output Total 6500 200 Balance -6000 -200 Weight 56 kg Intake: Hemodialysis 500 Output: Urine 200 Hemodialysis 3500 Hemodialysis Net Amount 3000 Other: Voiding Method Indwelling Catheter Indwelling Catheter Indwelling Catheter # Bowel Movements 2 - Exam GENERAL: The patient is alert and oriented x3, not in any acute distress. Well developed, well nourished. HEENT: Pupils are round and equally reacting to light. EOMI. No scleral icterus. No conjunctival pallor. Normocephalic, atraumatic. No pharyngeal erythema. No thyromegaly. CARDIOVASCULAR: S1 and S2 present. No murmurs, rubs, or gallops. PULMONARY: Chest is clear to auscultation, no wheezing , no crackles. ABDOMEN: Soft, nontender, nondistended, normoactive bowel sounds. No palpable organomegaly. MUSCULOSKELETAL: No joint swelling or deformity. EXTREMITIES: No cyanosis, clubbing, or pedal edema. NEUROLOGICAL: Gross neurological examination did not reveal any focal deficits. SKIN: No rashes. no petechiae. - Labs CBC & Chem 7: 11/23/23 03:51 11/23/23 03:51 Labs: Abnormal Lab Results - Last 24 Hours (Table) 11/23/23 11/24/23 11/24/23 Range/Units 19:06 06:13 11:43 POC Glucose (mg/dL) 126 H 119 H 130 H (70-110) mg/dL Assessment and Plan Assessment: ASSESSMENT AND PLAN: 1. Acute on chronic systolic heart failure due to ischemic cardiomyopathy, start the patient Lasix drip discontinued. Patient is on hemodialysis after placing the permacatheter in place. Monitor input and output and daily weight, continue hydralazine 25 mg orally twice every day, continue Farxiga 10 mg once every day, we will obtain cardiology consultation as well as pulmonary consultation for possible acute respiratory failure. 2. Acute on chronic kidney disease stage IIIb due to cardiorenal syndrome continue patient on Lasix drip at 10 mg/h, monitor the patient input and output and daily weight, check ultrasound of the kidneys rule out any hydronephrosis, nephrology consultation, avoid nephrotoxins. 3. Acute hypoxemic respiratory failure due to acute on chronic systolic heart failure as well as acute exacerbation of COPD. Continue patient on Lasix drip at 10 mg/h,continue DuoNeb 3 manipulation 4 times every day, continue oxygen s upport, continue to monitor input and output and daily weight. 4. Coronary artery disease status post PCI of the RCA. Continue patient on aspirin 81 mg once every day, Plavix 75 mg orally, atorvastatin 40 mg orally once every day. Cardiology consultation. 5. Hypertension and hypertensive cardiovascular disease. Continue hydralazine 25 mg orally twice every day, monitor the patient blood pressure very closely. 6. Mixed hyperlipidemia. Continue patient on atorvastatin 40 mg orally, monit or lipid panel, keep LDL 55-70. 7. Diabetes mellitus type 2. Continue patient on sliding scale insulin. 8. Close leg syndrome. Continue ropinirole 1 mg orally at bedtime. 9. Anemia of chronic kidney disease. Continue patient on Aranesp 40 mcg subcutaneously every week. 10. Hypothyroidism. Continue levothyroxine 75 mcg orally once every day. 11. COPD exacerbation continue patient on DuoNeb 3 mm laceration 4 times every day, continue oxygen 2 L nasal cannula, 12. Chronic hypoxemic respiratory failure due to combination of nonischemic cardiomyopathy and COPD. Continue oxygen 2 L nasal cannula, continue DuoNeb 3 mm residual 4 times every day. 13. Subacute fracture of the medial and lateral malleolus currently in boot no surgical intervention is planned 14. GERD. Continue pantoprazole 40 mg once every day. 15. Medical debility. Physical therapy evaluation. 16. DVT prophylaxis. Heparin 5000 units subcutaneous every 12 hours. 17. GI prophylaxis. Continue PPI. 18. Overall prognosis is very guarded 19 patient is full code. 20. Fall a in the hospital on 11/22, no head trauma. Continue monitoring with fall precaution. Physical therapy already evaluated the patient and recommended subacute rehab, public health social worker consult
[2023-11-25 06:17] LABS: Glucose,Whole Blood 123 mg/dL (70-110)
[2023-11-25 11:37] LABS: Glucose,Whole Blood 115 mg/dL (70-110)
--- NOTE | 2023-11-25 13:24 | P.PN ---
Subjective Progress Note Date: 11/25/23 This is a 58-year-old female patient with a known history of chronic kidney disease with previous temporary hemodialysis, chronic anemia, coronary artery disease with previous stent to the RCA, previous cardiac arrest, nonhealing right heel pressure wound, hypertension, hyperlipidemia, diabetes mellitus, severe pulmonary hypertension, COPD, former smoker congestive heart failure. She presented here to the emergency room yesterday with complaints of increasing shortness of breath and swelling all over. Chest x-ray reviewed with hazy appearance representing atelectasis versus pulmonary edema. White count 0.9. Platelets 167. Sodium 138. Potassium 5.1. Bicarb 24. BUN 57. Creatinine 2.5. Glucose 127. proBNP 33,100. She is seen today in consultation on the regular medical floor. She is currently sitting up in a chair at the bedside. Awake and alert in no acute distress. Somewhat of a poor historian. She is maintaining good O2 saturations in the 90s on 2 L/min per nasal cannula. She is afebrile. Hemodynamically stable. The patient is seen today November 22, 2023 in follow-up on the regular medical floor. She is currently sitting up in a chair at the bedside. Awake and alert in no acute distress. Breathing a bit easier today compared to yesterday. She is maintaining O2 saturations in the 90s on 2 L/min per nasal cannula. She is afebrile. Hemodynamically stable. Follow-up chest x-ray shows mild improvement in the pulmonary venous congestion. Bilateral infiltrates and small effusions stable. She remains on a Lasix drip at 10 mg/h. White count 11.9. Hemoglobin 7.9. Platelets 182. Sodium 138. Potassium 5.7. Bicarb 25. BUN 58. Creatinine 2.7. Glucose 115. She remains on DuoNeb inhalations. Heparin for DVT prophylaxis. The patient is seen today November 23, 2023 in follow-up on the regular medical floor. She is currently sitting up in bed. Awake and alert in no acute distress. Maintaining O2 saturations in the 90s on 2 L/min per nasal cannula. She did have a permacath placed yesterday. She did receive hemodialysis with 2 L of fluid removed. Plan is for dialysis again today. White count 8.9. Hemoglobin 8.0. Platelets 169. Glucose 155. She remains on a Lasix drip at 10 mg/h. Heparin for DVT prophylaxis. Continued on bronchodilators. The patient is seen today November 24, 2023 in follow-up on the regular medical floor. She is currently resting comfortably in bed. Awake and alert in no acute distress. She is maintaining O2 saturations in the 90s on 2 L/min per nasal cannula. She remains on bronchodilators. Heparin for DVT prophylaxis. She is continued on hemodialysis with another 3 L of fluid removed today. Glucose 119. The patient is seen today November 25, 2023 in follow-up on the regular medical floor. She is up in a chair at the bedside. Awake and alert in no acute distress. Maintaining O2 saturations in the upper 90s on 2 L/min per nasal cannula. Afebrile. Hemodynamically stable. Glucose 115. She remains on [facility] hodilators. Heparin for DVT prophylaxis. Plan is for hemodialysis again today. Objective - Vital Signs Vital signs: Vital Signs Temp 97.5 F L 11/25/23 07:23 Pulse 67 11/25/23 07:23 Resp 18 11/25/23 07:23 BP 105/69 11/25/23 07:23 Pulse Ox 98 11/25/23 07:23 FiO2 Intake & Output 11/24/23 11/25/23 11/25/23 18:59 06:59 18:59 Output Total 0 100 Balance 0 -100 Weight 61 kg Output: Urine 0 100 Stool 0 Other: Voiding Method Indwelling Catheter Indwelling Catheter Indwelling Catheter - Exam GENERAL EXAM: Alert, 58-year-old female, up in a chair, on 2 L nasal cannula, in no apparent distress. HEAD: Normocephalic. EYES: Normal reaction of pupils, equal size. NOSE: Clear with pink turbinates. THROAT: No erythema or exudates. NECK: No masses, no JVD. CHEST: No chest wall deformity. Right internal jugular HemoCath in place LUNGS: Equal air entry with crackles in the bilateral bases. CVS: S1 and S2 normal with no audible murmur, regular rhythm. ABDOMEN: No hepatosplenomegaly, normal bowel sounds, no guarding or rigidity. SPINE: No scoliosis or deformity SKIN: No rashes CENTRAL NERVOUS SYSTEM: No focal deficits, tone is normal in all 4 extremities. EXTREMITIES: There is 1-2+ peripheral edema. Right lower extremity in a hard boot. Peripheral pulses are intact. - Labs CBC & Chem 7: 11/23/23 03:51 11/23/23 03:51 Labs: Abnormal Lab Results - Last 24 Hours (Table) 11/24/23 11/24/23 11/25/23 Range/Units 16:50 20:49 06:15 POC Glucose (mg/dL) 134 H 139 H 123 H (70-110) mg/dL 11/25/23 Range/Units 11:36 POC Glucose (mg/dL) 115 H (70-110) mg/dL Assessment and Plan Assessment: Acute hypoxic respiratory failure secondary to an acute exacerbation of diastolic congestive heart failure Chronic anemia Chronic kidney disease with previous hemodialysis and now hemodialysis resumed again 11/22/2023 Coronary artery disease with previous stenting Pulmonary hypertension Hypertension Hyperlipidemia Diabetes mellitus Chronic wounds of the lower extremities more so on the right heel Previous cardiac arrest with extended stay in the intensive care unit in July 2023 History of complete rectal prolapse with previous attempts to replace Chronic obstructive pulmonary disease Former smoker History of previous urinary tract infections with E. coli and Proteus Plan: The patient was seen and evaluated Labs and medications reviewed Hemodialysis planned for today Will need ECF placement and HD chair availability We will continue to follow I have personally seen and examined the patient, performed the documentation and the assessment and plan as written. Number of minutes spent on the visit: 10.
--- NOTE | 2023-11-25 14:31 | P.PN ---
Subjective patient is seen for follow-up for acute kidney injury, chronic kidney disease and volume overload. Patient did not have significant diuresis with Lasix drip and therefore she has been restarted on hemodialysis. Lasix drip has been discontinued. Patient complained of significantly decreased hearing. improved today. No shortness of breath noted. Objective - Vital Signs Vital signs: Vital Signs Temp 97.5 F L 11/25/23 07:23 Pulse 67 11/25/23 07:23 Resp 18 11/25/23 07:23 BP 105/69 11/25/23 07:23 Pulse Ox 98 11/25/23 07:23 FiO2 Intake & Output 11/24/23 11/25/23 11/25/23 18:59 06:59 18:59 Output Total 0 100 Balance 0 -100 Weight 61 kg Output: Urine 0 100 Stool 0 Other: Voiding Method Indwelling Catheter Indwelling Catheter Indwelling Catheter - Exam patient is awake, comfortable, in complaining of pain in the right side of the neck at the catheter site. Hard of hearing today Examination of the heart S1 and S2 Examination of the lungs bilateral breath sounds are heard with crackles at the basesExline abdomen is soft nontender Examination of lower extremity shows edema 1+ bilaterally VISITING PROFESSOR exam grossly intact - Labs CBC & Chem 7: 11/23/23 03:51 11/23/23 03:51 Labs: Abnormal Lab Results - Last 24 Hours (Table) 11/24/23 11/24/23 11/25/23 Range/Units 16:50 20:49 06:15 POC Glucose (mg/dL) 134 H 139 H 123 H (70-110) mg/dL 11/25/23 Range/Units 11:36 POC Glucose (mg/dL) 115 H (70-110) mg/dL Assessment and Plan Assessment: 1. Acute kidney injury, cardiorenal, with indwelling [place] catheter. History of hemodialysis dependent acute kidney injury which recovered. Patient did not diurese much with Lasix drip and therefore has been restarted on hemodialysis on 11/22/2023. 2. Volume overload 3. Acute on chronic systolic CHF. EF is 40-45%on echocardiogram on 10/15/2023 4. History of cardiac arrest 5. Chronic kidney disease NKF stage IIIB to IV with baseline creatinine more recently around 1.9-2 mg/dL. 6. Decreased hearing. Patient has been off of Lasix drip. hearing seems to have improved today. Plan: hemodialysis today Accurate I's and O's continue with torsemide Continue [facility]
[2023-11-25 16:42] LABS: Glucose,Whole Blood 98 mg/dL (70-110)
--- NOTE | 2023-11-25 19:14 | P.PN ---
Subjective Progress Note Date: 11/25/23 HISTORY OF PRESENT ILLNESS: This is a 58-year-old female with a previous medical history signif icant for coronary artery disease status post PCI of the RCA 2023 with ischemic cardiomyopathy, hypertension and hypertensive cardiovascular disease, hyperlipidemia, diabetes mellitus type 2 uncontrolled, chronic kidney disease stage IIIb, anemia of chronic kidney disease, history of COPD, history of severe pulmonary hypertension, history of fracture of the medial lateral malleolus, chronic wound to the right heel that has been healed, patient has been followed by [facility] Tracy Morris and she was seen yesterday on round and she was complaining of increased weight gain with increased anasarca with increased fluid in bilateral lower extremity all the way up to the thigh all the way up to the abdominal area, was complaining of increased shortness of breath, she was on 2 L nasal cannula her oxygen saturation was 99%, patient was quite anxious and frantic at the correction, she was directed to go to the emergency department for evaluation of acute and chronic systolic heart failure with worsening renal function due to cardiorenal syndrome and consultation was placed for cardiology and nephrology. 11/21: Patient is seen today in follow-up. She has had a dialysis catheter placed today by Dr. Dale. She remains on Lasix drip per nephrology. Extremity and abdominal edema are improving, patient appears to be better today, she has been been started on Solu-Medrol 60 mg IV push every 8 hours yesterday along with nebulized treatment, continue oxygen support, pulmonary evaluation is appreciated, continue to monitor the patient input and output and daily weight, she is less anxious today as she was started on Xanax yesterday as needed, I believe the nephrology is planning for the patient to go for hemodialysis permacatheter was placed by Dr. Dale early in the right internal jugular vein. I will follow-up with the patient very closely. Her prognosis continue to be guarded her daughter and her granddaughter and they were updated yesterday and they were aware that the patient may go for dialysis at this point. 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 day per compliance engineer products Labs reviewed and looks improving leukocytosis, hemoglobin stable at 8.0 creatinine 2.3 and potassium 5.8 Lisinopril remains on hold 11/23 Patient awake alert No back pain She is getting hemodialysis Complains from pain all over her body 11/24: Patient sitting up in chair getting ready to get her hemodialysis for the permacatheter is complaining of a lot of pain all over her body, she has been getting [place] by mouth, she is asking for her morphine sulfate she will be given 2 mg IV push at this time for further control of her pain prior to her hemodialysis, patient appears to be somewhat emotional at this time, she appears a lot better since she was started on dialysis, she is not as edematous as she was before, she continues to have some edema both lower extremities not this bad she appears to have some edema in the right upper extremity we will continue to monitor very closely. Continue current treatment plan, the plan is to transfer the patient back to [facility] when she has a slot for outpatient dialysis. REVIEW OF SYSTEMS: Constitutional: No documented fever, no chills, no night sweats. No weight change. Positive for generalized weakness, fatigue or lethargy. She states she is feeling much better today she continues to have shortness of breath but improved. No daytime sleepiness. EENT: No headache. No blurred vision or double vision, no loss of vision. No loss of Hearing, no ringing in the ears, no dizziness. No nasal drainage or congestion. No epistaxis. No sore throat. Lungs: Positive for less shortness of breath, no cough, no sputum production. No wheezing. Reports dyspnea with activity. Cardiovascular: No chest pain, no lower extremity edema. No palpitations. No paroxysmal nocturnal dyspnea. No orthopnea. No lightheadedness or dizziness. No syncopal episodes. Abdominal: Reports abdominal pain. No nausea, vomiting. No diarrhea. No constipation. No bloody or tarry stools reports loss of appetite. Genitourinary: No dysuria, increased frequency, urgency. No urinary retention. Musculoskeletal: No myalgias. No muscle weakness, positive for gait dysfunction, positive for frequent falls. Positive for back pain and neck pain. Integumentary: Right heel scab, no lesions. No rash or pruritus. No unusual bruising. Positive for change in hair or nails. Neurologic: No aphasia. No facial droop. No change in mentation. No head injury. No headache. No paralysis. No paresthesia. Psychiatric: No depression. No anxiety. No mood swings. Endocrine: No abnormal blood sugars. No weight change. PHYSICAL EXAMINATION: General: 58-year-old female sitting up in bed in mild respiratory distress. HEENT: Head is atraumatic, normocephalic, pupils were equal round reactive to light and recommendation, extraocular muscle movement were intact, sclera nonicteric, conjunctivae were pale, mucous membranes of the mouth are somewhat dry. Neck: Supple, Increased JVP, normal carotid upstroke bilaterally, no l ymphadenopathy. Chest: Decreased breath sounds at the bases, few rhonchi, no expiratory wheezes, no chest wall tenderness, no intercostal retractions. Heart: First heart sound is normal, second heart sound is normal there is systolic ejection murmur 2/6 located in the left sternal border. Abdomen: Soft, nontender, nondistended, positive bowel sounds Extremities: There is +1 edema no calf tenderness DP +1 bilaterally. Right heel scab Neurologic examination: Patient is awake alert and oriented x3, cranial nerves II-12 appear grossly intact, muscle power were 3 out of 5 in upper extremities and 3 out of 5 in bilateral lower extremities, deep tendon reflexes normal bilaterally. ASSESSMENT AND PLAN: 1. Acute on chronic systolic heart failure due to ischemic cardiomyopathy. Continue with hemodialysis as scheduled, continue patient on hydralazine 25 mg orally twice every day, monitor the patient very closely.. 2. Acute on chronic kidney disease stage IIIb due to cardiorenal syndrome patient was started on hemodialysis at this time, and she is doing better.. 3. Acute hypoxemic respiratory failure due to acute on chronic systolic heart failure as well as acute exacerbation of COPD. ,continue DuoNeb 3 manipulation 4 times every day, continue oxygen support, continue to monitor input and output and daily weight. 4. Coronary artery disease status post PCI of the RCA. Continue patient on aspirin 81 mg once every day, Plavix 75 mg orally, atorvastatin 40 mg orally once every day. Cardiology consultation. 5. Hypertension and hypertensive cardiovascular disease. Continue hydralazine 25 mg orally twice every day, monitor the patient blood pressure very closely. 6. Mixed hyperlipidemia. Continue patient on atorvastatin 40 mg orally, monitor lipid panel, keep LDL 55-70. 7. Diabetes mellitus type 2. Continue patient on sliding scale insulin. 8. Restless leg syndrome. Continue ropinirole 1 mg orally at bedtime. 9. Anemia of chronic kidney disease. Continue patient on Aranesp 40 mcg subcutaneously every week. 10. Hypothyroidism. Continue levothyroxine 75 mcg orally once every day. 11. COPD exacerbation continue patient on DuoNeb 3 mm laceration 4 times every day, continue oxygen 2 L nasal cannula, 12. Chronic hypoxemic respiratory failure due to combination of nonischemic cardiomyopathy and COPD. Continue oxygen 2 L nasal cannula, continue DuoNeb 3 mm residual 4 times every day. 13. Subacute fracture of the medial and lateral malleolus currently in boot no surgical intervention is planned 14. GERD. Continue pantoprazole 40 mg once every day. 15. Medical debility. Physical therapy evaluation. 16. DVT prophylaxis. Heparin 5000 units subcutaneous every 12 hours. 17. GI prophylaxis. Continue PPI. 18. Overall prognosis is very guarded 19 patient is full code. 20. The plan is to place the patient back in to [facility] when she has a slot for outpatient dialysis Objective - Vital Signs Vital signs: Vital Signs Temp 97.4 F L 11/25/23 14:33 Pulse 65 11/25/23 14:33 Resp 18 11/25/23 14:33 BP 113/58 11/25/23 14:33 Pulse Ox 93 L 11/25/23 14:33 FiO2 Intake & Output 11/24/23 11/25/23 11/25/23 18:59 06:59 18:59 Output Total 0 100 Balance 0 -100 Weight 61 kg Output: Urine 0 100 Stool 0 Other: Voiding Method Indwelling Catheter Indwelling Catheter Indwelling Catheter - Labs CBC & Chem 7: 11/23/23 03:51 11/23/23 03:51 Labs: Abnormal Lab Results - Last 24 Hours (Table) 11/24/23 11/25/23 11/25/23 Range/Units 20:49 06:15 11:36 POC Glucose (mg/dL) 139 H 123 H 115 H (70-110) mg/dL
[2023-11-25 20:34] LABS: Glucose,Whole Blood 109 mg/dL (70-110)
[2023-11-26 01:42] LABS: Glucose,Whole Blood 155 mg/dL (70-110)
[2023-11-26 06:28] LABS: Glucose,Whole Blood 98 mg/dL (70-110)
[2023-11-26 08:44] LABS: Basophils # (A) 0.05 X 10*3/uL (0.00-0.10); Basophils % (A) 0.5 %; Eosinophils # (A) 0.13 X 10*3/uL (0.04-0.35); Eosinophils % (A) 1.2 %; HCT 27.2 % (37.2-46.3); HGB 7.8 g/dL (12.0-15.0); Lymphocytes # (A) 0.49 X 10*3/uL (0.90-5.00); Lymphocytes % (A) 4.5 %; MCH 26.4 pg (27.0-32.0); MCHC 28.7 g/dL (32.0-37.0); MCV 92.2 FL (80.0-97.0); Mean Platelet Volume 11.6 FL (9.5-12.2); Monocytes # (A) 0.83 X 10*3/uL (0.20-1.00); Monocytes % (A) 7.7 %; NRBC Per 100 WBC 0 X 10*3/uL (0.00-0.01); Neutrophils # (A) 9.29 X 10*3/uL (1.80-7.70); Neutrophils % (A) 85.7 %; Platelet Count 196 X 10*3/uL (140-440); RBC 2.95 X 10*6/uL (4.10-5.20); RDW 16.7 % (11.5-14.5); WBC 10.83 X 10*3/uL (4.50-10.00)
--- NOTE | 2023-11-26 09:14 | P.PN ---
Subjective Progress Note Date: 11/26/23 HISTORY OF PRESENT ILLNESS: This is a 58-year-old female with a previous medical history signif icant for coronary artery disease status post PCI of the RCA 2023 with ischemic cardiomyopathy, hypertension and hypertensive cardiovascular disease, hyperlipidemia, diabetes mellitus type 2 uncontrolled, chronic kidney disease stage IIIb, anemia of chronic kidney disease, history of COPD, history of severe pulmonary hypertension, history of fracture of the medial lateral malleolus, chronic wound to the right heel that has been healed, patient has been followed by [facility] Tracy Morris and she was seen yesterday on round and she was complaining of increased weight gain with increased anasarca with increased fluid in bilateral lower extremity all the way up to the thigh all the way up to the abdominal area, was complaining of increased shortness of breath, she was on 2 L nasal cannula her oxygen saturation was 99%, patient was quite anxious and frantic at the halfway, she was directed to go to the emergency department for evaluation of acute and chronic systolic heart failure with worsening renal function due to cardiorenal syndrome and consultation was placed for cardiology and nephrology. 11/21: Patient is seen today in follow-up. She has had a dialysis catheter placed today by Dr. Dale. She remains on Lasix drip per nephrology. Extremity and abdominal edema are improving, patient appears to be better today, she has been been started on Solu-Medrol 60 mg IV push every 8 hours yesterday along with nebulized treatment, continue oxygen support, pulmonary evaluation is appreciated, continue to monitor the patient input and output and daily weight, she is less anxious today as she was started on Xanax yesterday as needed, I believe the nephrology is planning for the patient to go for hemodialysis permacatheter was placed by Dr. Dale early in the right internal jugular vein. I will follow-up with the patient very closely. Her prognosis continue to be guarded her daughter and her granddaughter and they were updated yesterday and they were aware that the patient may go for dialysis at this point. 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 Labs reviewed and looks improving leukocytosis, hemoglobin stable at 8.0 creatinine 2.3 and potassium 5.8 Lisinopril remains on hold 11/23 Patient awake alert No back pain She is getting hemodialysis Complains from pain all over her body 11/24: Patient sitting up in chair getting ready to get her hemodialysis for the permacatheter is complaining of a lot of pain all over her body, she has been getting [place] by mouth, she is asking for her morphine sulfate she will be given 2 mg IV push at this time for further control of her pain prior to her hemodialysis, patient appears to be somewhat emotional at this time, she appears a lot better since she was started on dialysis, she is not as edematous as she was before, she continues to have some edema both lower extremities not this bad she appears to have some edema in the right upper extremity we will continue to monitor very closely. Continue current treatment plan, the plan is to transfer the patient back to [facility] when she has a slot for outpatient dialysis. 11/25: Patient sitting up in bed in no apparent distress, she is complaining of increased pain and swelling of the right upper extremity, she continues to have minimal shortness of breath, she continues to have some swelling both lower extremities, she did have dialysis yesterday, will are going to order a venous Doppler of the right upper extremity rule out any deep venous thrombosis, we will start the patient on K-pad's, start the patient on IV antibiotic in the form of cefazolin 2 g IV piggyback every 12 hours, I will obtain blood cultures prior to the antibiotic, we will monitor the patient very closely, await the final result of the ultrasound and we will see how the patient progress over the next 1 or 2 days as far as the swelling of the right upper extremity. REVIEW OF SYSTEMS: Constitutional: No documented fever, no chills, no night sweats. No weight change. Positive for generalized weakness, fatigue or lethargy. She states she is feeling much better today she continues to have shortness of breath but improved. No daytime sleepiness. EENT: No headache. No blurred vision or double vision, no loss of vision. No loss of Hearing, no ringing in the ears, no dizziness. No nasal drainage or congestion. No epistaxis. No sore throat. Lungs: Positive for less shortness of breath, no cough, no sputum production. No wheezing. Reports dyspnea with activity. Cardiovascular: No chest pain, no lower extremity edema. No palpitations. No paroxysmal nocturnal dyspnea. No orthopnea. No lightheadedness or dizziness. No syncopal episodes. Abdominal: Reports abdominal pain. No nausea, vomiting. No diarrhea. No cons tipation. No bloody or tarry stools reports loss of appetite. Genitourinary: No dysuria, increased frequency, urgency. No urinary retention. Musculoskeletal: No myalgias. No muscle weakness, positive for gait dysfunction, positive for frequent falls. Positive for back pain and neck pain. Integumentary: Right heel scab, no lesions. No rash or pruritus. No unusual bruising. Positive for change in hair or nails.right upper extremity with erythema and pain and edema Neurologic: No aphasia. No facial droop. No change in mentation. No head injury. No headache. No paralysis. No paresthesia. Psychiatric: No depression. No anxiety. No mood swings. Endocrine: No abnormal blood sugars. No weight change. PHYSICAL EXAMINATION: General: 58-year-old female sitting up in bed in mild respiratory distress. HEENT: Head is atraumatic, normocephalic, pupils were equal round reactive to light and recommendation, extraocular muscle movement were intact, sclera nonicteric, conjunctivae were pale, mucous membranes of the mouth are somewhat dry. Neck: Supple, Increased JVP, normal carotid upstroke bilaterally, no lymphadenopathy. Chest: Decreased breath sounds at the bases, few rhonchi, no expiratory wheezes, no chest wall tenderness, no intercostal retractions. Heart: First heart sound is normal, second heart sound is normal there is systolic ejection murmur 2/6 located in the left sternal border. Abdomen: Soft, nontender, nondistended, positive bowel sounds Extremities: There is +1 edema no calf tenderness DP +1 bilaterally. Right heel scab, right upper extremity with increased warmth and swelling with tenderness to palpation Neurologic examination: Patient is awake alert and oriented x3, cranial nerves II-12 appear grossly intact, muscle power were 3 out of 5 in upper extremities and 3 out of 5 in bilateral lower extremities, deep tendon reflexes normal bilaterally. ASSESSMENT AND PLAN: 1. Right upper extremity cellulitis rule out DVT in the cephalic vein start the patient on IV antibiotic in the form of Ancef 2 g piggyback every 12 hours, venous Doppler of the right upper extremity, apply K-pad, arm elevation, follow- up with the patient. Check labs. 2. Acute on chronic systolic heart failure due to ischemic cardiomyopathy. Continue with hemodialysis as scheduled, continue patient on hydralazine 25 mg orally twice every day, monitor the patient very closely.. 3. Acute on chronic kidney disease stage IIIb due to cardiorenal syndrome patient was started on hemodialysis at this time, and she is doing better.. 4. Acute hypoxemic respiratory failure due to acute on chronic systolic heart failure as well as acute exacerbation of COPD. ,continue DuoNeb 3 manipulation 4 times every day, continue oxygen support, continue to monitor input and output and daily weight. 5. Coronary artery disease status post PCI of the RCA. Continue patient on aspirin 81 mg once every day, Plavix 75 mg orally, atorvastatin 40 mg orally once every day. Cardiology consultation. 6. Hypertension and hypertensive cardiovascular disease. Continue hydralazine 25 mg orally twice every day, monitor the patient blood pressure very closely. 7. Mixed hyperlipidemia. Continue patient on atorvastatin 40 mg orally, monitor lipid panel, keep LDL 55-70. 8. Diabetes mellitus type 2. Continue patient on sliding scale insulin. 9. Restless leg syndrome. Continue ropinirole 1 mg orally at bedtime. 10. Anemia of chronic kidney disease. Continue patient on Aranesp 40 mcg subcutaneously every week. 11. Hypothyroidism. Continue levothyroxine 75 mcg orally once every day. 12. COPD exacerbation continue patient on DuoNeb 3 mm laceration 4 times every day, continue oxygen 2 L nasal cannula, 13. Chronic hypoxemic respiratory failure due to combination of nonischemic cardiomyopathy and COPD. Continue oxygen 2 L nasal cannula, continue DuoNeb 3 mm residual 4 times every day. 14. Subacute fracture of the medial and lateral malleolus currently in boot no surgical intervention is planned 15. GERD. Continue pantoprazole 40 mg once every day. 16. Medical debility. Physical therapy evaluation. 17. DVT prophylaxis. Heparin 5000 units subcutaneous every 12 hours. 18. GI prophylaxis. Continue PPI. 19. Overall prognosis is very guarded 20 patient is full code. 20. The plan is to place the patient back in to [facility] when she has a slot for outpatient dialysis Objective - Vital Signs Vital signs: Vital Signs Temp 97.7 F 11/26/23 07:33 Pulse 74 11/26/23 07:33 Resp 18 11/26/23 07:33 BP 163/95 11/26/23 07:33 Pulse Ox 100 11/26/23 07:33 FiO2 Intake & Output 11/25/23 11/26/23 11/26/23 18:59 06:59 18:59 Intake Total 400 Output Total 3600 100 Balance -3200 -100 Weight 58.5 kg Intake: Hemodialysis 400 Output: Urine 0 100 Hemodialysis 2000 Hemodialysis Net Amount 1600 Other: Voiding Method Indwelling Catheter Indwelling Catheter - Labs CBC & Chem 7: 11/26/23 04:16 11/23/23 03:51 Labs: Abnormal Lab Results - Last 24 Hours (Table) 11/25/23 11/26/23 11/26/23 Range/Units 11:36 01:31 04:16 WBC 10.83 H (4.50-10.00) X 10*3/uL RBC 2.95 L (4.10-5.20) X 10*6/uL Hgb 7.8 L (12.0-15.0) g/dL Hct 27.2 L (37.2-46.3) % MCH 26.4 L (27.0-32.0) pg MCHC 28.7 L (32.0-37.0) g/dL RDW 16.7 H (11.5-14.5) % Neutrophils # 9.29 H (1.80-7.70) X 10*3/uL Lymphocytes # 0.49 L (0.90-5.00) X 10*3/uL POC Glucose (mg/dL) 115 H 155 H (70-110) mg/dL
[2023-11-26 09:25] LABS: ALT 12 U/L (8-44); AST 15 U/L (13-35); Albumin 2.8 g/dL (3.8-4.9); Albumin/Globulin Ratio 0.78 Ratio (1.60-3.17); Alkaline Phosphatase 201 U/L (41-126); BUN/Creat Ratio 8.47 Ratio (12.00-20.00); Blood Urea Nitrogen 14.4 mg/dL (9.0-27.0); Calcium 7.9 mg/dL (8.7-10.3); Carbon Dioxide 26.5 mmol/L (21.6-31.8); Chloride 100 mmol/L (96-109); Globulin 3.6 g/dL (1.6-3.3); Glucose 98 mg/dL (70-110); Sodium 136 mmol/L (135-145); Total Bilirubin 0.3 mg/dL (0.3-1.2); Total Protein 6.4 g/dL (6.2-8.2)
--- NOTE | 2023-11-26 09:54 | US ---
EXAMINATION TYPE: US venous doppler duplex UE RT DATE OF EXAM: 11/26/2023 COMPARISON: NONE CLINICAL INDICATION: Female, 58 years old with history of pain/swelling; pain and swelling in right a rm x 4 days. No hx of DVT, on blood thinners SIDE PERFORMED: Right Right Arm: No evidence for DVT in vessels seen. Subclavian vein limited due to PICC line. Edema noted in arm. IMPRESSION: Grayscale, color doppler, spectral doppler imaging performed of the deep veins of the upper extremiti es. There is normal flow, compressibility and vascular waveforms.
[2023-11-26 11:55] LABS: Glucose,Whole Blood 104 mg/dL (70-110)
--- NOTE | 2023-11-26 13:16 | P.PN ---
Subjective Progress Note Date: 11/26/23 This is a 58-year-old female patient with a known history of chronic kidney disease with previous temporary hemodialysis, chronic anemia, coronary artery disease with previous stent to the RCA, previous cardiac arrest, nonhealing right heel pressure wound, hypertension, hyperlipidemia, diabetes mellitus, severe pulmonary hypertension, COPD, former smoker congestive heart failure. She presented here to the emergency room yesterday with complaints of increasing shortness of breath and swelling all over. Chest x-ray reviewed with hazy appearance representing atelectasis versus pulmonary edema. White count 0.9. Platelets 167. Sodium 138. Potassium 5.1. Bicarb 24. BUN 57. Creatinine 2.5. Glucose 127. proBNP 33,100. She is seen today in consultation on the regular medical floor. She is currently sitting up in a chair at the bedside. Awake and alert in no acute distress. Somewhat of a poor historian. She is maintaining good O2 saturations in the 90s on 2 L/min per nasal cannula. She is afebrile. Hemodynamically stable. The patient is seen today November 22, 2023 in follow-up on the regular medical floor. She is currently sitting up in a chair at the bedside. Awake and alert in no acute distress. Breathing a bit easier today compared to yesterday. She is maintaining O2 saturations in the 90s on 2 L/min per nasal cannula. She is afebrile. Hemodynamically stable. Follow-up chest x-ray shows mild improvement in the pulmonary venous congestion. Bilateral infiltrates and small effusions stable. She remains on a Lasix drip at 10 mg/h. White count 11.9. Hemoglobin 7.9. Platelets 182. Sodium 138. Potassium 5.7. Bicarb 25. BUN 58. Creatinine 2.7. Glucose 115. She remains on DuoNeb inhalations. Heparin for DVT prophylaxis. The patient is seen today November 23, 2023 in follow-up on the regular medical floor. She is currently sitting up in bed. Awake and alert in no acute distress. Maintaining O2 saturations in the 90s on 2 L/min per nasal cannula. She did have a permacath placed yesterday. She did receive hemodialysis with 2 L of fluid removed. Plan is for dialysis again today. White count 8.9. Hemoglobin 8.0. Platelets 169. Glucose 155. She remains on a Lasix drip at 10 mg/h. Heparin for DVT prophylaxis. Continued on bronchodilators. The patient is seen today November 24, 2023 in follow-up on the regular medical floor. She is currently resting comfortably in bed. Awake and alert in no acute distress. She is maintaining O2 saturations in the 90s on 2 L/min per nasal cannula. She remains on bronchodilators. Heparin for DVT prophylaxis. She is continued on hemodialysis with another 3 L of fluid removed today. Glucose 119. The patient is seen today November 25, 2023 in follow-up on the regular medical floor. She is up in a chair at the bedside. Awake and alert in no acute distress. Maintaining O2 saturations in the upper 90s on 2 L/min per nasal cannula. Afebrile. Hemodynamically stable. Glucose 115. She remains on [facility] hodilators. Heparin for DVT prophylaxis. Plan is for hemodialysis again today. The patient is seen today November 26, 2023 in follow-up on the regular medical floor. She is currently up in a chair. Maintaining good O2 saturations in the 90s on room air. Feeling better. Doppler of the right upper extremity ruled out DVT. There is some edema. White count 10.8. Hemoglobin 7.8. Platelets 196. Sodium 136. Potassium 4.0. Bicarb 27. BUN 14. Creatinine 1.7. Glucose 98. She is on heparin for DVT prophylaxis. Remains on bronchodilators. Initiated on cefazolin. Objective - Vital Signs Vital signs: Vital Signs Temp 97.7 F 11/26/23 07:33 Pulse 74 11/26/23 07:33 Resp 18 11/26/23 07:33 BP 163/95 11/26/23 07:33 Pulse Ox 100 11/26/23 07:33 FiO2 Intake & Output 11/25/23 11/26/23 11/26/23 18:59 06:59 18:59 Intake Total 400 Output Total 3600 100 Balance -3200 -100 Weight 58.5 kg Intake: Hemodialysis 400 Output: Urine 0 100 Hemodialysis 2000 Hemodialysis Net Amount 1600 Other: Voiding Method Indwelling Catheter Indwelling Catheter # Voids 1 - Exam GENERAL EXAM: Alert, pleasant 58-year-old female, up in a chair, on room air, in no apparent distress. HEAD: Normocephalic. EYES: Normal reaction of pupils, equal size. NOSE: Clear with pink turbinates. THROAT: No erythema or exudates. NECK: No masses, no JVD. CHEST: No chest wall deformity. Right internal jugular HemoCath in place LUNGS: Equal air entry with crackles in the bilateral bases. CVS: S1 and S2 normal with no audible murmur, regular rhythm. ABDOMEN: No hepatosplenomegaly, normal bowel sounds, no guarding or rigidity. SPINE: No scoliosis or deformity SKIN: No rashes CENTRAL NERVOUS SYSTEM: No focal deficits, tone is normal in all 4 extremities. EXTREMITIES: There is 1-2+ peripheral edema. Right lower extremity in a hard boot. Peripheral pulses are intact. - Labs CBC & Chem 7: 11/26/23 04:16 11/26/23 04:16 Labs: Abnormal Lab Results - Last 24 Hours (Table) 11/26/23 11/26/23 11/26/23 Range/Units 01:31 04:16 04:16 WBC 10.83 H (4.50-10.00) X 10*3/uL RBC 2.95 L (4.10-5.20) X 10*6/uL Hgb 7.8 L (12.0-15.0) g/dL Hct 27.2 L (37.2-46.3) % MCH 26.4 L (27.0-32.0) pg MCHC 28.7 L (32.0-37.0) g/dL RDW 16.7 H (11.5-14.5) % Neutrophils # 9.29 H (1.80-7.70) X 10*3/uL Lymphocytes # 0.49 L (0.90-5.00) X 10*3/uL Creatinine 1.7 H (0.6-1.5) mg/dL Est GFR (CKD-EPI) 34 L (>=60) BUN/Creatinine Ratio 8.47 L (12.00-20.00) Ratio POC Glucose (mg/dL) 155 H (70-110) mg/dL Calcium 7.9 L (8.7-10.3) mg/dL Alkaline Phosphatase 201 H (41-126) U/L Albumin 2.8 L (3.8-4.9) g/dL Globulin 3.6 H (1.6-3.3) g/dL Albumin/Globulin Ratio 0.78 L (1.60-3.17) Ratio Assessment and Plan Assessment: Acute hypoxic respiratory failure secondary to an acute exacerbation of diastolic congestive heart failure Chronic anemia Chronic kidney disease with previous hemodialysis and now hemodialysis resumed again 11/22/2023 Coronary artery disease with previous stenting Pulmonary hypertension Hypertension Hyperlipidemia Diabetes mellitus Chronic wounds of the lower extremities more so on the right heel Previous cardiac arrest with extended stay in the intensive care unit in July 2023 History of complete rectal prolapse with previous attempts to replace Chronic obstructive pulmonary disease Former smoker History of previous urinary tract infections with E. coli and Proteus Plan: The patient was seen and evaluated Labs and medications reviewed Doppler of the right upper extremity negative for DVT Stable and on room air Will need ECF placement and HD chair availability We will continue to follow I have personally seen and examined the patient, performed the documentation and the assessment and plan as written. Number of minutes spent on the visit: 10.
--- NOTE | 2023-11-26 13:33 | P.PN ---
Subjective patient is seen for follow-up for acute kidney injury, chronic kidney disease and volume overload. Patient did not have significant diuresis with Lasix drip and therefore she has been restarted on hemodialysis on 11/22/2023. Lasix drip has been discontinued. Patient complained of significantly decreased hearing. improved today. No shortness of breath noted. Objective - Vital Signs Vital signs: Vital Signs Temp 97.7 F 11/26/23 07:33 Pulse 74 11/26/23 07:33 Resp 18 11/26/23 07:33 BP 163/95 11/26/23 07:33 Pulse Ox 100 11/26/23 07:33 FiO2 Intake & Output 11/25/23 11/26/23 11/26/23 18:59 06:59 18:59 Intake Total 400 Output Total 3600 100 Balance -3200 -100 Weight 58.5 kg Intake: Hemodialysis 400 Output: Urine 0 100 Hemodialysis 2000 Hemodialysis Net Amount 1600 Other: Voiding Method Indwelling Catheter Indwelling Catheter # Voids 1 - Exam patient is awake, comfortable, Examination of the heart S1 and S2 Examination of the lungs bilateral breath sounds are heard with crackles at the basesExline abdomen is soft nontender Examination of lower extremity shows edema 1+ bilaterally [employer]PER[employer] exam grossly intact - Labs CBC & Chem 7: 11/26/23 04:16 11/26/23 04:16 Labs: Abnormal Lab Results - Last 24 Hours (Table) 11/26/23 11/26/23 11/26/23 Range/Units 01:31 04:16 04:16 WBC 10.83 H (4.50-10.00) X 10*3/uL RBC 2.95 L (4.10-5.20) X 10*6/uL Hgb 7.8 L (12.0-15.0) g/dL Hct 27.2 L (37.2-46.3) % MCH 26.4 L (27.0-32.0) pg MCHC 28.7 L (32.0-37.0) g/dL RDW 16.7 H (11.5-14.5) % Neutrophils # 9.29 H (1.80-7.70) X 10*3/uL Lymphocytes # 0.49 L (0.90-5.00) X 10*3/uL Creatinine 1.7 H (0.6-1.5) mg/dL Est GFR (CKD-EPI) 34 L (>=60) BUN/Creatinine Ratio 8.47 L (12.00-20.00) Ratio POC Glucose (mg/dL) 155 H (70-110) mg/dL Calcium 7.9 L (8.7-10.3) mg/dL Alkaline Phosphatase 201 H (41-126) U/L Albumin 2.8 L (3.8-4.9) g/dL Globulin 3.6 H (1.6-3.3) g/dL Albumin/Globulin Ratio 0.78 L (1.60-3.17) Ratio Assessment and Plan Assessment: 1. Acute kidney injury, cardiorenal, with indwelling Hays catheter. History of hemodialysis dependent acute kidney injury which recovered. Patient did not diurese much with Lasix drip and therefore has been restarted on hemodialysis on 11/22/2023. 2. Volume overload 3. Acute on chronic systolic CHF. EF is 40-45%on echocardiogram on 10/15/2023 4. History of cardiac arrest 5. Chronic kidney disease NKF stage IIIB to IV with baseline creatinine more recently around 1.9-2 mg/dL. 6. Decreased hearing. Patient has been off of Lasix drip. Hearing seems to osborne ve improved now Plan: hemodialysis in a.m. Accurate I's and O's continue with torsemide Continue Colette
[2023-11-26 17:01] LABS: Glucose,Whole Blood 118 mg/dL (70-110)
[2023-11-26 20:51] LABS: Glucose,Whole Blood 171 mg/dL (70-110)
[2023-11-27 06:07] LABS: Glucose,Whole Blood 122 mg/dL (70-110)
[2023-11-27] MEDS ORDERED: DAPTOmycin 350 MG in SODIUM CHLORIDE 0.9% 50 ML IVPB SCH (09:00)
[2023-11-27] MEDS: MIDODRINE 5 MG TAB PO SCH (10:21)
[2023-11-27 10:35] LABS: Basophils # (A) 0.04 X 10*3/uL (0.00-0.10); Basophils % (A) 0.4 %; Eosinophils # (A) 0.03 X 10*3/uL (0.04-0.35); Eosinophils % (A) 0.3 %; HCT 26.7 % (37.2-46.3); HGB 7.7 g/dL (12.0-15.0); Lymphocytes # (A) 0.44 X 10*3/uL (0.90-5.00); Lymphocytes % (A) 4.3 %; MCH 26.4 pg (27.0-32.0); MCHC 28.8 g/dL (32.0-37.0); MCV 91.4 FL (80.0-97.0); Mean Platelet Volume 11.1 FL (9.5-12.2); Monocytes # (A) 0.66 X 10*3/uL (0.20-1.00); Monocytes % (A) 6.5 %; NRBC Per 100 WBC 0 X 10*3/uL (0.00-0.01); Neutrophils # (A) 8.92 X 10*3/uL (1.80-7.70); Neutrophils % (A) 87.8 %; Platelet Count 200 X 10*3/uL (140-440); RBC 2.92 X 10*6/uL (4.10-5.20); RDW 17.1 % (11.5-14.5); WBC 10.16 X 10*3/uL (4.50-10.00)
[2023-11-27 10:57] LABS: ALT 11 U/L (8-44); AST 16 U/L (13-35); Albumin 2.8 g/dL (3.8-4.9); Albumin/Globulin Ratio 0.76 Ratio (1.60-3.17); Alkaline Phosphatase 260 U/L (41-126); BUN/Creat Ratio 8.73 Ratio (12.00-20.00); Blood Urea Nitrogen 19.2 mg/dL (9.0-27.0); Calcium 7.9 mg/dL (8.7-10.3); Carbon Dioxide 24.8 mmol/L (21.6-31.8); Chloride 97 mmol/L (96-109); Globulin 3.7 g/dL (1.6-3.3); Glucose 108 mg/dL (70-110); Potassium 4.1 mmol/L (3.5-5.5); Sodium 132 mmol/L (135-145); Total Bilirubin 0.2 mg/dL (0.3-1.2); Total Protein 6.5 g/dL (6.2-8.2)
[2023-11-27 11:33] LABS: Glucose,Whole Blood 101 mg/dL (70-110)
--- NOTE | 2023-11-27 12:55 | P.PN ---
Subjective patient is seen for follow-up for acute kidney injury, chronic kidney disease and volume overload. Patient did not have significant diuresis with Lasix drip and therefore she has been restarted on hemodialysis on 11/22/2023. No shortness of breath noted. patient is seen on hemodialysis. Tolerating treatment well. 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 - Labs CBC & Chem 7: 11/27/23 06:39 11/27/23 06:39 Labs: Abnormal Lab Results - Last 24 Hours (Table) 11/26/23 11/26/23 11/27/23 Range/Units 17:00 20:49 06:06 WBC (4.50-10.00) X 10*3/uL RBC (4.10-5.20) X 10*6/uL Hgb (12.0-15.0) g/dL Hct (37.2-46.3) % MCH (27.0-32.0) pg MCHC (32.0-37.0) g/dL RDW (11.5-14.5) % Immature Gran # (0.00-0.04) X 10*3/uL Neutrophils # (1.80-7.70) X 10*3/uL Lymphocytes # (0.90-5.00) X 10*3/uL Eosinophils # (0.04-0.35) X 10*3/uL Sodium (135-145) mmol/L Creatinine (0.6-1.5) mg/dL Est GFR (CKD-EPI) (>=60) BUN/Creatinine Ratio (12.00-20.00) Ratio POC Glucose (mg/dL) 118 H 171 H 122 H (70-110) mg/dL Calcium (8.7-10.3) mg/dL Total Bilirubin (0.3-1.2) mg/dL Alkaline Phosphatase (41-126) U/L Albumin (3.8-4.9) g/dL Globulin (1.6-3.3) g/dL Albumin/Globulin Ratio (1.60-3.17) Ratio 11/27/23 11/27/23 Range/Units 06:39 06:39 WBC 10.16 H (4.50-10.00) X 10*3/uL RBC 2.92 L (4.10-5.20) X 10*6/uL Hgb 7.7 L (12.0-15.0) g/dL Hct 26.7 L (37.2-46.3) % MCH 26.4 L (27.0-32.0) pg MCHC 28.8 L (32.0-37.0) g/dL RDW 17.1 H (11.5-14.5) % Immature Gran # 0.07 H (0.00-0.04) X 10*3/uL Neutrophils # 8.92 H (1.80-7.70) X 10*3/uL Lymphocytes # 0.44 L (0.90-5.00) X 10*3/uL Eosinophils # 0.03 L (0.04-0.35) X 10*3/uL Sodium 132 L (135-145) mmol/L Creatinine 2.2 H (0.6-1.5) mg/dL Est GFR (CKD-EPI) 25 L (>=60) BUN/Creatinine Ratio 8.73 L (12.00-20.00) Ratio POC Glucose (mg/dL) (70-110) mg/dL Calcium 7.9 L (8.7-10.3) mg/dL Total Bilirubin 0.2 L (0.3-1.2) mg/dL Alkaline Phosphatase 260 H (41-126) U/L Albumin 2.8 L (3.8-4.9) g/dL Globulin 3.7 H (1.6-3.3) g/dL Albumin/Globulin Ratio 0.76 L (1.60-3.17) Ratio Microbiology - Last 24 Hours (Table) 11/26/23 10:08 Blood Culture Gram Stain - Preliminary Blood Blood Culture - Preliminary Molecular ID Assessment and Plan Assessment: 1. Acute kidney injury, cardiorenal, with indwelling Hays catheter. History of hemodialysis dependent acute kidney injury which recovered. Patient did not diurese much with Lasix drip and therefore has been restarted on hemodialysis on 11/22/2023. 2. Volume overload, Improving with dialysis 3. Acute on chronic systolic CHF. EF is 40-45%on echocardiogram on 10/15/2023 4. History of cardiac arrest 5. Chronic kidney disease NKF stage IIIB to IV with baseline creatinine more recently around 1.9-2 mg/dL. 6. Decreased hearing. Patient has been off of Lasix drip. Hearing seems to have improved now Plan: hemodialysis on Saturday schedule. Accurate I's and O's continue with torsemide Continue Aranesp
--- NOTE | 2023-11-27 13:07 | P.PN ---
Subjective Progress Note Date: 11/27/23 HISTORY OF PRESENT ILLNESS: This is a 58-year-old female with a previous medical history signif icant for coronary artery disease status post PCI of the RCA 2023 with ischemic cardiomyopathy, hypertension and hypertensive cardiovascular disease, hyperlipidemia, diabetes mellitus type 2 uncontrolled, chronic kidney disease stage IIIb, anemia of chronic kidney disease, history of COPD, history of severe pulmonary hypertension, history of fracture of the medial lateral malleolus, chronic wound to the right heel that has been healed, patient has been followed by nm Tracy Morris and she was seen yesterday on round and she was complaining of increased weight gain with increased anasarca with increased fluid in bilateral lower extremity all the way up to the thigh all the way up to the abdominal area, was complaining of increased shortness of breath, she was on 2 L nasal cannula her oxygen saturation was 99%, patient was quite anxious and frantic at the custodial, she was directed to go to the emergency department for evaluation of acute and chronic systolic heart failure with worsening renal function due to cardiorenal syndrome and consultation was placed for cardiology and nephrology. 11/21: Patient is seen today in follow-up. She has had a dialysis catheter placed today by Dr. Dale. She remains on Lasix drip per nephrology. Extremity and abdominal edema are improving, patient appears to be better today, she has been been started on Solu-Medrol 60 mg IV push every 8 hours yesterday along with nebulized treatment, continue oxygen support, pulmonary evaluation is appreciated, continue to monitor the patient input and output and daily weight, she is less anxious today as she was started on Xanax yesterday as needed, I believe the nephrology is planning for the patient to go for hemodialysis permacatheter was placed by Dr. Dale early in the right internal jugular vein. I will follow-up with the patient very closely. Her prognosis continue to be guarded her daughter and her granddaughter and they were updated yesterday and they were aware that the patient may go for dialysis at this point. 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 day per navigation officer Labs reviewed and looks improving leukocytosis, hemoglobin stable at 8.0 creatinine 2.3 and potassium 5.8 Lisinopril remains on hold 11/23 Patient awake alert No back pain She is getting hemodialysis Complains from pain all over her body 11/24: Patient sitting up in chair getting ready to get her hemodialysis for the permacatheter is complaining of a lot of pain all over her body, she has been getting Rhododendron by mouth, she is asking for her morphine sulfate she will be given 2 mg IV push at this time for further control of her pain prior to her hemodialysis, patient appears to be somewhat emotional at this time, she appears a lot better since she was started on dialysis, she is not as edematous as she was before, she continues to have some edema both lower extremities not this bad she appears to have some edema in the right upper extremity we will continue to monitor very closely. Continue current treatment plan, the plan is to transfer the patient back to [facility] when she has a slot for outpatient dialysis. 11/25: Patient sitting up in bed in no apparent distress, she is complaining of increased pain and swelling of the right upper extremity, she continues to have minimal shortness of breath, she continues to have some swelling both lower extremities, she did have dialysis yesterday, will are going to order a venous Doppler of the right upper extremity rule out any deep venous thrombosis, we will start the patient on K-pad's, start the patient on IV antibiotic in the form of cefazolin 2 g IV piggyback every 12 hours, I will obtain blood cultures prior to the antibiotic, we will monitor the patient very closely, await the final result of the ultrasound and we will see how the patient progress over the next 1 or 2 days as far as the swelling of the right upper extremity. 11/26: Patient is laying down in bed does not appear to be in acute distress, she appears to be significantly drowsy, yet she is asking for pain management, we will discontinue morphine completely, continue patient on Rhododendron as needed, monitor the patient's symptoms very closely, patient blood culture showed evidence of MRSA, switch to Cubicin 350 mg of piggyback every 48 hours, infectious disease consultation was obtained, patient did have recent permacatheter placement for hemodialysis, will continue to follow-up with the patient very closely, her right arm appears to be better, venous Doppler did not show evidence of acute DVT, I will follow-up with the patient very closely. The plan is for the patient to be transferred back to [facility] she already had assignment for hemodialysis as an outpatient in [place]. REVIEW OF SYSTEMS: Constitutional: No documented fever, no chills, no night sweats. No weight change. Positive for generalized weakness, fatigue or lethargy. She states she is feeling much better today she continues to have shortness of breath but improved. No daytime sleepiness. EENT: No headache. No blurred vision or double vision, no loss of vision. No loss of Hearing, no ringing in the ears, no dizziness. No nasal drainage or congestion. No epistaxis. No sore throat. Lungs: Positive for less shortness of breath, no cough, no sputum production. No wheezing. Reports dyspnea with activity. Cardiovascular: No chest pain, no lower extremity edema. No palpitations. No paroxysmal nocturnal dyspnea. No orthopnea. No lightheadedness or dizziness. No syncopal episodes. Abdominal: Reports abdominal pain. No nausea, vomiting. No diarrhea. No constipation. No bloody or tarry stools reports loss of appetite. Genitourinary: No dysuria, increased frequency, urgency. No urinary retention. Musculoskeletal: No myalgias. No muscle weakness, positive for gait dysfunction, positive for frequent falls. Positive for back pain and neck pain. Integumentary: Right heel scab, no lesions. No rash or pruritus. No unusual bruising. Positive for change in hair or nails.right upper extremity with erythema and pain and edema Neurologic: No aphasia. No facial droop. No change in mentation. No head injury. No headache. No paralysis. No paresthesia. Psychiatric: No depression. No anxiety. No mood swings. Endocrine: No abnormal blood sugars. No weight change. PHYSICAL EXAMINATION: General: 58-year-old female sitting up in bed in mild respiratory distress. HEENT: Head is atraumatic, normocephalic, pupils were equal round reactive to light and recommendation, extraocular muscle movement were intact, sclera nonicteric, conjunctivae were pale, mucous membranes of the mouth are somewhat dry. Neck: Supple, Increased JVP, normal carotid upstroke bilaterally, no lymphadenopathy. Chest: Decreased breath sounds at the bases, few rhonchi, no expiratory wheezes, no chest wall tenderness, no intercostal retractions. Heart: First heart sound is normal, second heart sound is normal there is systolic ejection murmur 2/6 located in the left sternal border. Abdomen: Soft, nontender, nondistended, positive bowel sounds Extremities: There is +1 edema no calf tenderness DP +1 bilaterally. Right heel scab, right upper extremity with increased warmth and swelling with tenderness to palpation Neurologic examination: Patient is awake alert and oriented x3, cranial nerves II-12 appear grossly intact, muscle power were 3 out of 5 in upper extremities and 3 out of 5 in bilateral lower extremities, deep tendon reflexes normal bilaterally. ASSESSMENT AND PLAN: 1. Right upper extremity cellulitis with MRSA bacteremia. Patient was switched from cefazolin to Cubicin 350 mg of piggyback every 48 hours, infectious disease consultation was obtained from Dr. Subramanian, keep the arm elevated. 2. Acute on chronic systolic heart failure due to ischemic cardiomyopathy. Continue with hemodialysis as scheduled, continue patient on hydralazine 25 mg orally twice every day, monitor the patient very closely.. 3. Acute on chronic kidney disease stage IIIb due to cardiorenal syndrome patient was started on hemodialysis at this time, and she is doing better.. 4. Acute hypoxemic respiratory failure due to acute on chronic systolic heart failure as well as acute exacerbation of COPD. ,continue DuoNeb 3 manipulation 4 times every day, continue oxygen support, continue to monitor input and output and daily weight. 5. Coronary artery disease status post PCI of the RCA. Continue patient on aspirin 81 mg once every day, Plavix 75 mg orally, atorvastatin 40 mg orally once every day. Cardiology consultation. 6. Hypertension and hypertensive cardiovascular disease. Continue hydralazine 25 mg orally twice every day, monitor the patient blood pressure very closely. 7. Mixed hyperlipidemia. Continue patient on atorvastatin 40 mg orally, monitor lipid panel, keep LDL 55-70. 8. Diabetes mellitus type 2. Continue patient on sliding scale insulin. 9. Restless leg syndrome. Continue ropinirole 1 mg orally at bedtime. 10. Anemia of chronic kidney disease. Continue patient on Aranesp 40 mcg subcutaneously every week. 11. Hypothyroidism. Continue levothyroxine 75 mcg orally once every day. 12. COPD exacerbation continue patient on DuoNeb 3 mm laceration 4 times every day, continue oxygen 2 L nasal cannula, 13. Chronic hypoxemic respiratory failure due to combination of nonischemic cardiomyopathy and COPD. Continue oxygen 2 L nasal cannula, continue DuoNeb 3 mm residual 4 times every day. 14. Subacute fracture of the medial and lateral malleolus currently in boot no surgical intervention is planned 15. GERD. Continue pantoprazole 40 mg once every day. 16. Medical debility. Physical therapy evaluation. 17. DVT prophylaxis. Heparin 5000 units subcutaneous every 12 hours. 18. GI prophylaxis. Continue PPI. 19. Overall prognosis is very guarded 20. Hypotension. Start the patient on midodrine 5 mg before dialysis. 21. Plan to transfer patient back to [facility] after the workup is done for MRSA bacteremia. Objective - Vital Signs Vital signs: Vital Signs Temp 98.4 F 11/27/23 07:23 Pulse 76 11/27/23 07:23 Resp 16 11/27/23 07:23 BP 131/77 11/27/23 07:23 Pulse Ox 99 11/27/23 07:23 FiO2 Intake & Output 11/26/23 11/27/23 11/27/23 18:59 06:59 18:59 Output Total 0 Balance 0 Weight 58 kg 58 kg Output: Urine 0 Other: # Voids 1 # Bowel Movements 1 1 - Labs CBC & Chem 7: 11/27/23 06:39 11/27/23 06:39 Labs: Abnormal Lab Results - Last 24 Hours (Table) 11/26/23 11/26/23 11/27/23 Range/Units 17:00 20:49 06:06 WBC (4.50-10.00) X 10*3/uL RBC (4.10-5.20) X 10*6/uL Hgb (12.0-15.0) g/dL Hct (37.2-46.3) % MCH (27.0-32.0) pg MCHC (32.0-37.0) g/dL RDW (11.5-14.5) % Immature Gran # (0.00-0.04) X 10*3/uL Neutrophils # (1.80-7.70) X 10*3/uL Lymphocytes # (0.90-5.00) X 10*3/uL Eosinophils # (0.04-0.35) X 10*3/uL Sodium (135-145) mmol/L Creatinine (0.6-1.5) mg/dL Est GFR (CKD-EPI) (>=60) BUN/Creatinine Ratio (12.00-20.00) Ratio POC Glucose (mg/dL) 118 H 171 H 122 H (70-110) mg/dL Calcium (8.7-10.3) mg/dL Total Bilirubin (0.3-1.2) mg/dL Alkaline Phosphatase (41-126) U/L Albumin (3.8-4.9) g/dL Globulin (1.6-3.3) g/dL Albumin/Globulin Ratio (1.60-3.17) Ratio 11/27/23 11/27/23 Range/Units 06:39 06:39 WBC 10.16 H (4.50-10.00) X 10*3/uL RBC 2.92 L (4.10-5.20) X 10*6/uL Hgb 7.7 L (12.0-15.0) g/dL Hct 26.7 L (37.2-46.3) % MCH 26.4 L (27.0-32.0) pg MCHC 28.8 L (32.0-37.0) g/dL RDW 17.1 H (11.5-14.5) % Immature Gran # 0.07 H (0.00-0.04) X 10*3/uL Neutrophils # 8.92 H (1.80-7.70) X 10*3/uL Lymphocytes # 0.44 L (0.90-5.00) X 10*3/uL Eosinophils # 0.03 L (0.04-0.35) X 10*3/uL Sodium 132 L (135-145) mmol/L Creatinine 2.2 H (0.6-1.5) mg/dL Est GFR (CKD-EPI) 25 L (>=60) BUN/Creatinine Ratio 8.73 L (12.00-20.00) Ratio POC Glucose (mg/dL) (70-110) mg/dL Calcium 7.9 L (8.7-10.3) mg/dL Total Bilirubin 0.2 L (0.3-1.2) mg/dL Alkaline Phosphatase 260 H (41-126) U/L Albumin 2.8 L (3.8-4.9) g/dL Globulin 3.7 H (1.6-3.3) g/dL Albumin/Globulin Ratio 0.76 L (1.60-3.17) Ratio Microbiology - Last 24 Hours (Table) 11/26/23 10:08 Blood Culture Gram Stain - Preliminary Blood Blood Culture - Preliminary Molecular ID
--- NOTE | 2023-11-27 13:12 | P.PN ---
Subjective Progress Note Date: 11/27/23 Principal diagnosis: Acute hypoxic respiratory failure secondary to acute exacerbation of diastolic congestive heart failure This is a 58-year-old female patient with a known history of chronic kidney disease with previous temporary hemodialysis, chronic anemia, coronary artery disease with previous stent to the RCA, previous cardiac arrest, nonhealing right heel pressure wound, hypertension, hyperlipidemia, diabetes mellitus, severe pulmonary hypertension, COPD, former smoker congestive heart failure. She presented here to the emergency room yesterday with complaints of increasing shortness of breath and swelling all over. Chest x-ray reviewed with hazy appearance representing atelectasis versus pulmonary edema. White count 0.9. Platelets 167. Sodium 138. Potassium 5.1. Bicarb 24. BUN 57. Creatinine 2.5. Glucose 127. proBNP 33,100. She is seen today in consultation on the regular medical floor. She is currently sitting up in a chair at the bedside. Awake and alert in no acute distress. Somewhat of a poor historian. She is maintaining good O2 saturations in the 90s on 2 L/min per nasal cannula. She is afebrile. Hemodynamically stable. The patient is seen today November 22, 2023 in follow-up on the regular medical floor. She is currently sitting up in a chair at the bedside. Awake and alert in no acute distress. Breathing a bit easier today compared to yesterday. She is maintaining O2 saturations in the 90s on 2 L/min per nasal cannula. She is afebrile. Hemodynamically stable. Follow-up chest x-ray shows mild improvement in the pulmonary venous congestion. Bilateral infiltrates and small effusions stable. She remains on a Lasix drip at 10 mg/h. White count 11.9. Hemoglobin 7.9. Platelets 182. Sodium 138. Potassium 5.7. Bicarb 25. BUN 58. Creatinine 2.7. Glucose 115. She remains on DuoNeb inhalations. Heparin for DVT prophylaxis. The patient is seen today November 23, 2023 in follow-up on the regular medical floor. She is currently sitting up in bed. Awake and alert in no acute distress. Maintaining O2 saturations in the 90s on 2 L/min per nasal cannula. She did have a permacath placed yesterday. She did receive hemodialysis with 2 L of fluid removed. Plan is for dialysis again today. White count 8.9. Hemoglobin 8.0. Platelets 169. Glucose 155. She remains on a Lasix drip at 10 mg/h. Heparin for DVT prophylaxis. Continued on bronchodilators. The patient is seen today November 24, 2023 in follow-up on the regular medical floor. She is currently resting comfortably in bed. Awake and alert in no acute distress. She is maintaining O2 saturations in the 90s on 2 L/min per nasal cannula. She remains on bronchodilators. Heparin for DVT prophylaxis. She is continued on hemodialysis with another 3 L of fluid removed today. Glucose 119. The patient is seen today November 25, 2023 in follow-up on the regular medical floor. She is up in a chair at the bedside. Awake and alert in no acute dis tress. Maintaining O2 saturations in the upper 90s on 2 L/min per nasal cannula. Afebrile. Hemodynamically stable. Glucose 115. She remains on bronchodilators. Heparin for DVT prophylaxis. Plan is for hemodialysis again today. The patient is seen today November 26, 2023 in follow-up on the regular medical floor. She is currently up in a chair. Maintaining good O2 saturations in the 90s on room air. Feeling better. Doppler of the right upper extremity ruled out DVT. There is some edema. White count 10.8. Hemoglobin 7.8. Platelets 196. Sodium 136. Potassium 4.0. Bicarb 27. BUN 14. Creatinine 1.7. Glucose 98. She is on heparin for DVT prophylaxis. Remains on bronchodilators. Initiated on cefazolin. Patient was evaluated today on 11/27/2023, patient is receiving hemodialysis, does not seem to be in any distress, she is actually on room air. However her blood cultures came back positive for MRSA, and she is now off cefazolin, placed on daptomycin by admitting physician. Pulmonary fermin no cough no wheezing no shortness of breath last chest x-ray from few days ago showed improvement in her pulmonary edema. WBC count is 10.1 hemoglobin 7.7 basic metabolic profile is normal BUN is 19 creatinine 2.2 Objective - Vital Signs Vital signs: Vital Signs Temp 98.4 F 11/27/23 07:23 Pulse 76 11/27/23 07:23 Resp 16 11/27/23 07:23 BP 131/77 11/27/23 07:23 Pulse Ox 99 11/27/23 07:23 FiO2 Intake & Output 11/26/23 11/27/23 11/27/23 18:59 06:59 18:59 Output Total 0 Balance 0 Weight 58 kg 58 kg Output: Urine 0 Other: # Voids 1 # Bowel Movements 1 1 - Exam GENERAL EXAM: Alert, pleasant 58-year-old female, up in a chair, on room air, in no apparent distress. HEAD: Normocephalic. EYES: Normal reaction of pupils, equal size. NOSE: Clear with pink turbinates. THROAT: No erythema or exudates. NECK: No masses, no JVD. CHEST: No chest wall deformity. Right internal jugular HemoCath in place LUNGS: Clear bilaterally no rhonchi no wheezes CVS: S1 and S2 normal with no audible murmur, regular rhythm. ABDOMEN: No hepatosplenomegaly, normal bowel sounds, no guarding or rigidity. SKIN: No rashes CENTRAL NERVOUS SYSTEM: Alert oriented x 3 no gross focal deficit EXTREMITIES: Plus bipedal edema - Labs CBC & Chem 7: 11/27/23 06:39 11/27/23 06:39 Labs: Abnormal Lab Results - Last 24 Hours (Table) 11/26/23 11/26/23 11/27/23 Range/Units 17:00 20:49 06:06 WBC (4.50-10.00) X 10*3/uL RBC (4.10-5.20) X 10*6/uL Hgb (12.0-15.0) g/dL Hct (37.2-46.3) % MCH (27.0-32.0) pg MCHC (32.0-37.0) g/dL RDW (11.5-14.5) % Immature Gran # (0.00-0.04) X 10*3/uL Neutrophils # (1.80-7.70) X 10*3/uL Lymphocytes # (0.90-5.00) X 10*3/uL Eosinophils # (0.04-0.35) X 10*3/uL Sodium (135-145) mmol/L Creatinine (0.6-1.5) mg/dL Est GFR (CKD-EPI) (>=60) BUN/Creatinine Ratio (12.00-20.00) Ratio POC Glucose (mg/dL) 118 H 171 H 122 H (70-110) mg/dL Calcium (8.7-10.3) mg/dL Total Bilirubin (0.3-1.2) mg/dL Alkaline Phosphatase (41-126) U/L Albumin (3.8-4.9) g/dL Globulin (1.6-3.3) g/dL Albumin/Globulin Ratio (1.60-3.17) Ratio 11/27/23 11/27/23 Range/Units 06:39 06:39 WBC 10.16 H (4.50-10.00) X 10*3/uL RBC 2.92 L (4.10-5.20) X 10*6/uL Hgb 7.7 L (12.0-15.0) g/dL Hct 26.7 L (37.2-46.3) % MCH 26.4 L (27.0-32.0) pg MCHC 28.8 L (32.0-37.0) g/dL RDW 17.1 H (11.5-14.5) % Immature Gran # 0.07 H (0.00-0.04) X 10*3/uL Neutrophils # 8.92 H (1.80-7.70) X 10*3/uL Lymphocytes # 0.44 L (0.90-5.00) X 10*3/uL Eosinophils # 0.03 L (0.04-0.35) X 10*3/uL Sodium 132 L (135-145) mmol/L Creatinine 2.2 H (0.6-1.5) mg/dL Est GFR (CKD-EPI) 25 L (>=60) BUN/Creatinine Ratio 8.73 L (12.00-20.00) Ratio POC Glucose (mg/dL) (70-110) mg/dL Calcium 7.9 L (8.7-10.3) mg/dL Total Bilirubin 0.2 L (0.3-1.2) mg/dL Alkaline Phosphatase 260 H (41-126) U/L Albumin 2.8 L (3.8-4.9) g/dL Globulin 3.7 H (1.6-3.3) g/dL Albumin/Globulin Ratio 0.76 L (1.60-3.17) Ratio Microbiology - Last 24 Hours (Table) 11/26/23 10:08 Blood Culture Gram Stain - Preliminary Blood Blood Culture - Preliminary Molecular ID Assessment and Plan Assessment: Impression: Acute hypoxic respiratory failure secondary to an acute exacerbation of diastolic congestive heart failure Chronic anemia Chronic kidney disease with previous hemodialysis and now hemodialysis resumed again 11/22/2023 Coronary artery disease with previous stenting Pulmonary hypertension Hypertension Hyperlipidemia Diabetes mellitus Chronic wounds of the lower extremities more so on the right heel Previous cardiac arrest with extended stay in the intensive care unit in July 2023 History of complete rectal prolapse with previous attempts to replace Chronic obstructive pulmonary disease Former smoker History of previous urinary tract infections with E. coli and Proteus MRSA bacteremia, patient is now on daptomycin. Recommendation: Continue present supportive care measures Continue hemodialysis Continue antibiotics as per infectious disease on the case presently on daptomycin for MRSA in the blood. Continue bronchodilators for her underlying COPD Will continue to follow Time with Patient: Less than 30
[2023-11-27] MEDS: DAPTOmycin 350 MG in SODIUM CHLORIDE 0.9% 50 ML IVPB SCH (14:07)
[2023-11-27] MEDS ORDERED: MIDODRINE 5 MG TAB PO PRN (14:27)
[2023-11-27 16:42] LABS: Glucose,Whole Blood 133 mg/dL (70-110)
[2023-11-27 20:14] LABS: Glucose,Whole Blood 155 mg/dL (70-110)
[2023-11-27] MEDS: ALPRAZolam 0.25 MG TAB PO SCH (20:27)
[2023-11-28] MEDS: HYDROcodone/APAP 5-325MG 1 EACH TAB PO PRN (05:46)
[2023-11-28 06:20] LABS: Glucose,Whole Blood 95 mg/dL (70-110)
[2023-11-28 09:09] LABS: HCT 27.8 % (37.2-46.3); HGB 8.1 g/dL (12.0-15.0); MCH 26.6 pg (27.0-32.0); MCHC 29.1 g/dL (32.0-37.0); MCV 91.1 FL (80.0-97.0); Mean Platelet Volume 11.2 FL (9.5-12.2); NRBC Per 100 WBC 0 X 10*3/uL (0.00-0.01); Platelet Count 204 X 10*3/uL (140-440); RBC 3.05 X 10*6/uL (4.10-5.20); RDW 17.3 % (11.5-14.5); WBC 7.17 X 10*3/uL (4.50-10.00)
[2023-11-28 10:17] LABS: Basophils # (A) 0.05 X 10*3/uL (0.00-0.10); Basophils % (A) 0.7 %; Eosinophils # (A) 0.01 X 10*3/uL (0.04-0.35); Eosinophils % (A) 0.1 %; Lymphocytes # (A) 0.59 X 10*3/uL (0.90-5.00); Lymphocytes % (A) 8.2 %; Monocytes # (A) 0.83 X 10*3/uL (0.20-1.00); Monocytes % (A) 11.6 %; Neutrophils # (A) 5.57 X 10*3/uL (1.80-7.70); Neutrophils % (A) 77.7 %; RBC Morphology Normal (Normal)
[2023-11-28 10:57] LABS: ALT 9 U/L (8-44); AST 23 U/L (13-35); Albumin 2.7 g/dL (3.8-4.9); Albumin/Globulin Ratio 0.75 Ratio (1.60-3.17); Alkaline Phosphatase 259 U/L (41-126); BUN/Creat Ratio 7.37 Ratio (12.00-20.00); Calcium 7.9 mg/dL (8.7-10.3); Carbon Dioxide 27.5 mmol/L (21.6-31.8); Chloride 98 mmol/L (96-109); Globulin 3.6 g/dL (1.6-3.3); Glucose 97 mg/dL (70-110); Potassium 3.7 mmol/L (3.5-5.5); Sodium 136 mmol/L (135-145); Total Bilirubin 0.3 mg/dL (0.3-1.2); Total Protein 6.3 g/dL (6.2-8.2)
--- NOTE | 2023-11-28 11:58 | P.CONS ---
History of Present Illness - Reason for Consult Consult date: 11/27/23 MRSA bacteremia right arm cellulitis Requesting physician: Jesus Mina - Chief Complaint Weakness shortness of breath x days - History of Present Illness Patient is a 58-year-old female with a past medical history significant for diabetes mellitus hypertension hyperlipidemia diabetic heel ulcer and infection that seem to have healing history of end-stage renal disease on dialysis patient has been brought to the hospital about a week ago complaining of swelling of the lower and also requiring increasing oxygen patient has been evaluated by multiple consultants including carmela cabrera cardiology and nephrology services noticed to have worsening of her kidney function and did have right internal jugular permacatheter placement on 11/22/2023 for hemodialysis patient has been afebrile during this hospital stay patient was noticed to have right lower extremity swelling yesterday for the patient did have blood cultures done patient also have a venous Doppler study that was negative for any DVT blood cultures came back positive this morning with MRSA cefazolin was switched to daptomycin infectious disease was consulted for further management of antibiotic therapy as mentioned earlier patient did not have any fever during this hospital stay patient overall not have adequate historian has been complaining of some weakness and pain and wanted something stronger pain medication but not able to tell me exactly what the pain is denies any headache no chest pain some shortness of breath occasional cough no abdominal pain and no diarrhea has been reported. Patient did have a white count of 10.16 creatinine is 2.2 last chest x-ray on 11/22/2023 mention right intrajugular hemodialysis catheter in satisfactory position no pneumothorax Review of Systems Positive point and negatives has been mentioned in the HPI, complete review of systems was performed and all other systems are negative Past Medical History Past Medical History: Diabetes Mellitus, Hyperlipidemia, Hypertension, Renal Disease Additional Past Medical History / Comment(s): restless leg, neurothopy, Guillain-[place], dialysis History of Any Multi-Drug Resistant Organisms: None Reported Past Surgical History: Orthopedic Surgery, Tonsillectomy Additional Past Surgical History / Comment(s): "plate in left leg to straighten leg as a child" - plate removed, right total hip replacement due to a fracture from a fall, dialysis Past Anesthesia/Blood Transfusion Reactions: No Reported Reaction Past Psychological History: No Psychological Hx Reported Smoking Status: Former smoker Past Alcohol Use History: None Reported Past Drug Use History: None Reported Medications and Allergies Home Medications Medication Instructions Recorded Confirmed Type Aspirin 81 mg PO DAILY 90 Days #90 tab 06/25/23 11/21/23 Rx Clopidogrel [Plavix] 75 mg PO DAILY tab 09/27/23 11/21/23 Rx Docusate [Colace] 100 mg PO BID cap 09/27/23 11/21/23 Rx Fluticasone Nasal [place] [Flonase 2 spray EA NOSTRIL DAILY ml 09/27/23 11/21/23 Rx Nasal [place]] Folic Acid 1 mg PO DAILY tab 09/27/23 11/21/23 Rx Lidocaine 4% Patch 1 patch TOPICAL DAILY patch 09/27/23 11/21/23 Rx Melatonin 5 mg PO HS tab 09/27/23 11/21/23 Rx Thiamine [Vitamin B-1] 100 mg PO DAILY tab 09/27/23 11/21/23 Rx rOPINIRole HCL [Requip] 1 mg PO HS PRN tab 09/27/23 11/21/23 Rx Darbepoetin Frantz [Aranesp] 40 mcg SQ FR 10/09/23 11/21/23 History Ipratropium-Albuterol Nebulize 3 ml INHALATION RT-Q6H PRN 10/09/23 11/21/23 History [Duoneb 0.5 mg-3 mg/3 ml Soln] Multivitamins, Thera [Multivitamin 1 tab PO DAILY@0800 10/09/23 11/21/23 History (formulary)] Atorvastatin [Lipitor] 40 mg PO DAILY tab 10/21/23 11/21/23 Rx Calcium Acetate [PhosLo] 667 mg PO TID-W/MEALS tab 10/21/23 11/21/23 Rx Cholecalciferol [Vitamin D3 (25 25 mcg PO DAILY tab 10/21/23 11/21/23 Rx Mcg = 1000 Iu)] Dapagliflozin Propanediol [Farxiga] 10 mg PO DAILY tab 10/21/23 11/21/23 Rx Heparin Sodium,Porcine (1 ml) 5,000 unit SQ Q12HR each 10/21/23 11/21/23 Rx [Heparin Sodium] Bumetanide [Bumex] 1 mg PO TID@0500,1300,2100 11/21/23 11/21/23 History Ferrous Sulfate [Feosol] 325 mg PO BID 11/21/23 11/21/23 History HYDROcodone/APAP 5-325MG [[place] 1 tab PO Q4HR PRN 11/21/23 11/21/23 History 5-325] Insulin Lispro [humaLOG Kwikpen] See Protocol SQ ACHS@06,11,16,20 11/21/23 11/21/23 History Levothyroxine Sodium [Synthroid] 75 mcg PO DAILY@0600 11/21/23 11/21/23 History Omeprazole 20 mg PO DAILY 11/21/23 11/21/23 History hydrALAZINE HCL [Apresoline] 25 mg PO BID@0800,1600 11/21/23 11/21/23 History lisinopriL [Zestril] 2.5 mg PO DAILY@0800 11/21/23 11/21/23 History Allergies Allergy/AdvReac Type Severity Reaction Status Date / Time No Known Allergies Allergy Verified 11/20/23 20:00 Physical Exam Vitals: Vital Signs Temp Pulse Pulse Resp BP Pulse Ox 11/27/23 14:03 98.0 F 76 16 99/61 97 11/27/23 07:23 98.4 F 76 16 131/77 99 11/27/23 02:15 98.5 F 84 16 121/69 97 11/26/23 19:20 98.5 F 85 17 131/78 98 Intake and Output 11/27/23 11/27/23 11/27/23 06:59 14:59 22:59 Output Total 0 143 Balance 0 -143 Output: Urine 0 Post Void Residual 143 Other: # Voids 2 # Bowel Movements 1 Weight 58 kg 58 kg GENERAL DESCRIPTION: Middle-aged male lying in bed, no distress. No tachypnea or accessory muscle of respiration use. HEENT: Shows Pallor , no scleral icterus. Oral mucous membrane is dry. No pharyngeal erythema or thrush NECK: Trachea central, no thyromegaly. LUNGS: Unlabored breathing. Clear to auscultation anteriorly. No wheeze or crackle. HEART: S1, S2, regular rate and rhythm. No loud murmur ABDOMEN: Soft, no tenderness , guarding or rigidity, no organomegaly EXTREMITIES: Right upper extremity did have minimal swelling minimal redness com pared to the left arm right heel wound is currently dressed SKIN: No rash, no masses palpable. NEUROLOGICAL: The patient is awake, alert, oriented x3, mood and affect normal. Results CBC & Chem 7: 11/28/23 05:39 11/28/23 05:39 Labs: Abnormal Lab Results - Last 24 Hours (Table) 11/26/23 11/27/23 11/27/23 Range/Units 20:49 06:06 06:39 WBC 10.16 H (4.50-10.00) X 10*3/uL RBC 2.92 L (4.10-5.20) X 10*6/uL Hgb 7.7 L (12.0-15.0) g/dL Hct 26.7 L (37.2-46.3) % MCH 26.4 L (27.0-32.0) pg MCHC 28.8 L (32.0-37.0) g/dL RDW 17.1 H (11.5-14.5) % Immature Gran # 0.07 H (0.00-0.04) X 10*3/uL Neutrophils # 8.92 H (1.80-7.70) X 10*3/uL Lymphocytes # 0.44 L (0.90-5.00) X 10*3/uL Eosinophils # 0.03 L (0.04-0.35) X 10*3/uL Sodium (135-145) mmol/L Creatinine (0.6-1.5) mg/dL Est GFR (CKD-EPI) (>=60) BUN/Creatinine Ratio (12.00-20.00) Ratio POC Glucose (mg/dL) 171 H 122 H (70-110) mg/dL Calcium (8.7-10.3) mg/dL Total Bilirubin (0.3-1.2) mg/dL Alkaline Phosphatase (41-126) U/L Albumin (3.8-4.9) g/dL Globulin (1.6-3.3) g/dL Albumin/Globulin Ratio (1.60-3.17) Ratio 11/27/23 11/27/23 Range/Units 06:39 16:40 WBC (4.50-10.00) X 10*3/uL RBC (4.10-5.20) X 10*6/uL Hgb (12.0-15.0) g/dL Hct (37.2-46.3) % MCH (27.0-32.0) pg MCHC (32.0-37.0) g/dL RDW (11.5-14.5) % Immature Gran # (0.00-0.04) X 10*3/uL Neutrophils # (1.80-7.70) X 10*3/uL Lymphocytes # (0.90-5.00) X 10*3/uL Eosinophils # (0.04-0.35) X 10*3/uL Sodium 132 L (135-145) mmol/L Creatinine 2.2 H (0.6-1.5) mg/dL Est GFR (CKD-EPI) 25 L (>=60) BUN/Creatinine Ratio 8.73 L (12.00-20.00) Ratio POC Glucose (mg/dL) 133 H (70-110) mg/dL Calcium 7.9 L (8.7-10.3) mg/dL Total Bilirubin 0.2 L (0.3-1.2) mg/dL Alkaline Phosphatase 260 H (41-126) U/L Albumin 2.8 L (3.8-4.9) g/dL Globulin 3.7 H (1.6-3.3) g/dL Albumin/Globulin Ratio 0.76 L (1.60-3.17) Ratio Microbiology - Last 24 Hours (Table) 11/26/23 10:08 Blood Culture Gram Stain - Preliminary Blood Blood Culture - Preliminary Molecular ID Assessment and Plan (1) Bacteremia due to methicillin resistant Staphylococcus aureus Current Visit: Yes Status: Acute Code(s): R78.81 - BACTEREMIA; B95.62 - METHICILLIN RESIS STAPH INFCT CAUSING DISEASES CLASSD [facility] SNOMED Code(s): 11419137906672991 (2) Right arm cellulitis Current Visit: Yes Status: Acute Code(s): L03.113 - CELLULITIS OF RIGHT UPPER LIMB SNOMED Code(s): 48507037490303246 Plan: 1patient with MRSA bacteremia questionably to the right upper extremity cellulitis and she was noted to have some swelling and redness to the right upper extremity on 12/27/2023 subsequent has shown improvement however the patient recently did have a permacatheter placement and there will be high clinical suspicious for secondary seeding and infection of the catheter. 2blood culture to be repeated document clearance of bacteremia and should also be obtained from the dialysis catheter hemodialysis next 3continue with the daptomycin while waiting for the repeat culture to be finalized We will follow on clinical condition and cultures to further adjust medication if needed Thank you for this consultation we will follow the patient along with you Dictation was produced using [employer] software. please excuse any grammatical, word or spelling errors. Time with Patient: Greater than 30
[2023-11-28 12:09] LABS: Glucose,Whole Blood 130 mg/dL (70-110)
--- NOTE | 2023-11-28 12:23 | P.PN ---
Subjective Progress Note Date: 11/28/23 Principal diagnosis: Reason for follow-up is MRSA bacteremia Patient is a 58-year-old female with a past medical history significant for diabetes mellitus hypertension hyperlipidemia diabetic heel ulcer and infection that seem to have healing history of end-stage renal disease on dialysis patient has been brought to the hospital for swelling patient noticed to have worsening of her kidney function did have a right IJ dialysis catheter placement, patient was noticed to have swelling to the right upper extremity previously did have a IV to the right antecubital fossa from 11/20/2023 to 11/22/2023 now with evidence of MRSA bacteremia. On today's evaluation that is 11/28/2023, Patient is afebrile this morning patient denies having any chest pain shortness of breath or cough, the patient is breathing comfortably and currently on 2 L nasal cannula oxygen, patient d enies any abdominal pain no diarrhea no nausea no vomiting, the patient had approximately swelling has decreased currently no open wound or any drainage. Patient white count 7.17, creatinine is 1.9 Objective - Vital Signs Vital signs: Vital Signs Temp 97.9 F 11/28/23 07:09 Pulse 74 11/28/23 07:09 Resp 16 11/28/23 07:09 BP 114/66 11/28/23 07:09 Pulse Ox 94 L 11/28/23 07:09 FiO2 Intake & Output 11/27/23 11/28/23 11/28/23 18:59 06:59 18:59 Intake Total 400 Output Total 4543 394 Balance -4143 -394 Weight 58 kg 58 kg Intake: Hemodialysis 400 Output: Urine 240 Uretheral ([place]) 240 Post Void Residual 143 154 Hemodialysis 2400 Hemodialysis Net Amount 1999 Other: # Voids 1 # Bowel Movements 1 1 1 - Exam GENERAL DESCRIPTION: Middle-aged female up in bed in no distress RESPIRATORY SYSTEM: Unlabored breathing , decreased breath sounds at bases HEART: S1 S2 regular rate and rhythm , ABDOMEN: Soft , no tenderness EXTREMITIES: Right upper extremity did have minimal swelling compared to the left arm slightly warm but no open wound or drainage - Labs CBC & Chem 7: 11/28/23 05:39 11/28/23 05:39 Labs: Abnormal Lab Results - Last 24 Hours (Table) 11/27/23 11/27/23 11/28/23 Range/Units 16:40 20:13 05:39 RBC 3.05 L (4.10-5.20) X 10*6/uL Hgb 8.1 L (12.0-15.0) g/dL Hct 27.8 L (37.2-46.3) % MCH 26.6 L (27.0-32.0) pg MCHC 29.1 L (32.0-37.0) g/dL RDW 17.3 H (11.5-14.5) % Immature Gran # 0.12 H (0.00-0.04) X 10*3/uL Lymphocytes # 0.59 L (0.90-5.00) X 10*3/uL Eosinophils # 0.01 L (0.04-0.35) X 10*3/uL Creatinine (0.6-1.5) mg/dL Est GFR (CKD-EPI) (>=60) BUN/Creatinine Ratio (12.00-20.00) Ratio POC Glucose (mg/dL) 133 H 155 H (70-110) mg/dL Calcium (8.7-10.3) mg/dL Alkaline Phosphatase (41-126) U/L Albumin (3.8-4.9) g/dL Globulin (1.6-3.3) g/dL Albumin/Globulin Ratio (1.60-3.17) Ratio 11/27/ Range/Units 05:39 RBC (4.10-5.20) X 10*6/uL Hgb (12.0-15.0) g/dL Hct (37.2-46.3) % MCH (27.0-32.0) pg MCHC (32.0-37.0) g/dL RDW (11.5-14.5) % Immature Gran # (0.00-0.04) X 10*3/uL Lymphocytes # (0.90-5.00) X 10*3/uL Eosinophils # (0.04-0.35) X 10*3/uL Creatinine 1.9 H (0.6-1.5) mg/dL Est GFR (CKD-EPI) 30 L (>=60) BUN/Creatinine Ratio 7.37 L (12.00-20.00) Ratio POC Glucose (mg/dL) (70-110) mg/dL Calcium 7.9 L (8.7-10.3) mg/dL Alkaline Phosphatase 259 H (41-126) U/L Albumin 2.7 L (3.8-4.9) g/dL Globulin 3.6 H (1.6-3.3) g/dL Albumin/Globulin Ratio 0.75 L (1.60-3.17) Ratio Microbiology - Last 24 Hours (Table) 11/26/23 10:08 Blood Culture Gram Stain - Preliminary Blood Blood Culture - Preliminary Presumptive MRSA Molecular ID Assessment and Plan (1) Bacteremia due to methicillin resistant Staphylococcus aureus Current Visit: Yes Status: Acute Code(s): R78.81 - BACTEREMIA; B95.62 - METHICILLIN RESIS STAPH INFCT CAUSING DISEASES CLASSD [facility] SNOMED Code(s): 69175341366780460 (2) Right arm cellulitis Current Visit: Yes Status: Acute Code(s): L03.113 - CELLULITIS OF RIGHT UPPER LIMB SNOMED Code(s): 30339145802813296 Plan: 1patient with MRSA bacteremia questionably to the right upper extremity cellulitis and she was noted to have some swelling and redness to the right upper extremity on 12/27/2023 subsequent has shown improvement however the patient recently did have a permacatheter placement and there will be high clinical suspicious for secondary seeding and infection of the catheter. 2blood culture has been repeated document clearance of bacteremia and should also be obtained from the dialysis catheter at her next dialysis tomorrow this was discussed with the nephrology 3patient to continue with the daptomycin while waiting for the repeat culture to be finalized Dictation was produced using [employer] dictation software. please excuse any grammatical, word or spelling errors. Time with Patient: Less than 30
--- NOTE | 2023-11-28 14:26 | P.PN ---
Subjective Progress Note Date: 11/28/23 This is a 58-year-old female patient with a known history of chronic kidney disease with previous temporary hemodialysis, chronic anemia, coronary artery disease with previous stent to the RCA, previous cardiac arrest, nonhealing right heel pressure wound, hypertension, hyperlipidemia, diabetes mellitus, severe pulmonary hypertension, COPD, former smoker congestive heart failure. She presented here to the emergency room yesterday with complaints of increasing shortness of breath and swelling all over. Chest x-ray reviewed with hazy appearance representing atelectasis versus pulmonary edema. White count 0.9. Platelets 167. Sodium 138. Potassium 5.1. Bicarb 24. BUN 57. Creatinine 2.5. Glucose 127. proBNP 33,100. She is seen today in consultation on the regular medical floor. She is currently sitting up in a chair at the bedside. Awake and alert in no acute distress. Somewhat of a poor historian. She is maintaining good O2 saturations in the 90s on 2 L/min per nasal cannula. She is afebrile. Hemodynamically stable. The patient is seen today November 22, 2023 in follow-up on the regular medical floor. She is currently sitting up in a chair at the bedside. Awake and alert in no acute distress. Breathing a bit easier today compared to yesterday. She is maintaining O2 saturations in the 90s on 2 L/min per nasal cannula. She is afebrile. Hemodynamically stable. Follow-up chest x-ray shows mild improvement in the pulmonary venous congestion. Bilateral infiltrates and small effusions stable. She remains on a Lasix drip at 10 mg/h. White count 11.9. Hemoglobin 7.9. Platelets 182. Sodium 138. Potassium 5.7. Bicarb 25. BUN 58. Creatinine 2.7. Glucose 115. She remains on DuoNeb inhalations. Heparin for DVT prophylaxis. The patient is seen today November 23, 2023 in follow-up on the regular medical floor. She is currently sitting up in bed. Awake and alert in no acute distress. Maintaining O2 saturations in the 90s on 2 L/min per nasal cannula. She did have a permacath placed yesterday. She did receive hemodialysis with 2 L of fluid removed. Plan is for dialysis again today. White count 8.9. Hemoglobin 8.0. Platelets 169. Glucose 155. She remains on a Lasix drip at 10 mg/h. Heparin for DVT prophylaxis. Continued on bronchodilators. The patient is seen today November 24, 2023 in follow-up on the regular medical floor. She is currently resting comfortably in bed. Awake and alert in no acute distress. She is maintaining O2 saturations in the 90s on 2 L/min per nasal cannula. She remains on bronchodilators. Heparin for DVT prophylaxis. She is continued on hemodialysis with another 3 L of fluid removed today. Glucose 119. The patient is seen today November 25, 2023 in follow-up on the regular medical floor. She is up in a chair at the bedside. Awake and alert in no acute distress. Maintaining O2 saturations in the upper 90s on 2 L/min per nasal cannula. Afebrile. Hemodynamically stable. Glucose 115. She remains on [facility] hodilators. Heparin for DVT prophylaxis. Plan is for hemodialysis again today. The patient is seen today November 26, 2023 in follow-up on the regular medical floor. She is currently up in a chair. Maintaining good O2 saturations in the 90s on room air. Feeling better. Doppler of the right upper extremity ruled out DVT. There is some edema. White count 10.8. Hemoglobin 7.8. Platelets 196. Sodium 136. Potassium 4.0. Bicarb 27. BUN 14. Creatinine 1.7. Glucose 98. She is on heparin for DVT prophylaxis. Remains on bronchodilators. Initiated on cefazolin. The patient is seen today November 28, 2023 in follow-up on the regular medical floor. She is resting in bed. Awake and alert in no acute distress. Continues to maintain good O2 saturations in the 90s on room air. Occasionally uses 2 L of oxygen if short of breath. White count 7.1. Hemoglobin 8.1. Platelets 204. Sodium 136. Potassium 3.7. Bicarb 28. BUN 14. Creatinine 1.9. Glucose 97. Cultures revealing presumptive MRSA. She is currently on daptomycin. Heparin for DVT prophylaxis. Bronchodilators as needed. Objective - Vital Signs Vital signs: Vital Signs Temp 97.9 F 11/28/23 07:09 Pulse 74 11/28/23 07:09 Resp 16 11/28/23 07:09 BP 114/66 11/28/23 07:09 Pulse Ox 94 L 11/28/23 07:09 FiO2 Intake & Output 11/27/23 11/28/2311/27/24 18:59 06:59 18:59 Intake Total 400 Output Total 4543 394 Balance -4143 -394 Weight 58 kg 58 kg Intake: Hemodialysis 400 Output: Urine 240 Uretheral ([place]) 240 Post Void Residual 143 154 Hemodialysis 2400 Hemodialysis Net Amount 1999 Other: # Voids 1 # Bowel Movements 1 1 1 - Exam GENERAL EXAM: Alert, 58-year-old female, resting in bed, on room air, in no apparent distress. HEAD: Normocephalic. EYES: Normal reaction of pupils, equal size. NOSE: Clear with pink turbinates. THROAT: No erythema or exudates. NECK: No masses, no JVD. CHEST: No chest wall deformity. Right internal jugular HemoCath in place LUNGS: Equal air entry with crackles in the bilateral bases. CVS: S1 and S2 normal with no audible murmur, regular rhythm. ABDOMEN: No hepatosplenomegaly, normal bowel sounds, no guarding or rigidity. SPINE: No scoliosis or deformity SKIN: No rashes CENTRAL NERVOUS SYSTEM: No focal deficits, tone is normal in all 4 extremities. EXTREMITIES: There is 1-2+ peripheral edema. Right lower extremity in a hard boot. Peripheral pulses are intact. - Labs CBC & Chem 7: 11/28/23 05:39 11/28/23 05:39 Labs: Abnormal Lab Results - Last 24 Hours (Table) 11/27/23 11/27/23 11/28/23 Range/Units 16:40 20:13 05:39 RBC 3.05 L (4.10-5.20) X 10*6/uL Hgb 8.1 L (12.0-15.0) g/dL Hct 27.8 L (37.2-46.3) % MCH 26.6 L (27.0-32.0) pg MCHC 29.1 L (32.0-37.0) g/dL RDW 17.3 H (11.5-14.5) % Immature Gran # 0.12 H (0.00-0.04) X 10*3/uL Lymphocytes # 0.59 L (0.90-5.00) X 10*3/uL Eosinophils # 0.01 L (0.04-0.35) X 10*3/uL Creatinine (0.6-1.5) mg/dL Est GFR (CKD-EPI) (>=60) BUN/Creatinine Ratio (12.00-20.00) Ratio POC Glucose (mg/dL) 133 H 155 H (70-110) mg/dL Calcium (8.7-10.3) mg/dL Alkaline Phosphatase (41-126) U/L Albumin (3.8-4.9) g/dL Globulin (1.6-3.3) g/dL Albumin/Globulin Ratio (1.60-3.17) Ratio 11/28/23 11/28/23 Range/Units 05:39 12:07 RBC (4.10-5.20) X 10*6/uL Hgb (12.0-15.0) g/dL Hct (37.2-46.3) % MCH (27.0-32.0) pg MCHC (32.0-37.0) g/dL RDW (11.5-14.5) % Immature Gran # (0.00-0.04) X 10*3/uL Lymphocytes # (0.90-5.00) X 10*3/uL Eosinophils # (0.04-0.35) X 10*3/uL Creatinine 1.9 H (0.6-1.5) mg/dL Est GFR (CKD-EPI) 30 L (>=60) BUN/Creatinine Ratio 7.37 L (12.00-20.00) Ratio POC Glucose (mg/dL) 130 H (70-110) mg/dL Calcium 7.9 L (8.7-10.3) mg/dL Alkaline Phosphatase 259 H (41-126) U/L Albumin 2.7 L (3.8-4.9) g/dL Globulin 3.6 H (1.6-3.3) g/dL Albumin/Globulin Ratio 0.75 L (1.60-3.17) Ratio Microbiology - Last 24 Hours (Table) 11/26/23 10:08 Blood Culture Gram Stain - Preliminary Blood Blood Culture - Preliminary Presumptive MRSA Molecular ID Assessment and Plan Assessment: Acute hypoxic respiratory failure secondary to an acute exacerbation of diastolic congestive heart failure Chronic anemia Chronic kidney disease with previous hemodialysis and now hemodialysis resumed again 11/22/2023 Coronary artery disease with previous stenting Pulmonary hypertension Hypertension Hyperlipidemia Diabetes mellitus Chronic wounds of the lower extremities more so on the right heel Previous cardiac arrest with extended stay in the intensive care unit in July 2023 History of complete rectal prolapse with previous attempts to replace Chronic obstructive pulmonary disease Former smoker History of previous urinary tract infections with E. coli and Proteus Plan: The patient was seen and evaluated Labs and medications reviewed Blood cultures with presumptive MRSA Currently on daptomycin per ID service Hemodialysis on Saturday Stable and on room air, cleared for discharge Plan is for [facility] at discharge I have personally seen and examined the patient, performed the documentation and the assessment and plan as written. Number of minutes spent on the visit: 10.
[2023-11-28 16:15] LABS: Glucose,Whole Blood 113 mg/dL (70-110)
--- NOTE | 2023-11-28 16:30 | P.PN ---
Subjective patient is seen for follow-up for acute kidney injury, chronic kidney disease and volume overload. Patient was restarted on hemodialysis on 11/22/2023 due to poor response to Lasix drip and worsening volume overload. 8 L of UF since admission with hemodialysis. No shortness of breath noted. Blood cultures on 11/26/2023 are positive for MRSA Objective - Vital Signs Vital signs: Vital Signs Temp 97.8 F 11/28/23 14:00 Pulse 70 11/28/23 14:00 Resp 16 11/28/23 14:00 BP 130/90 11/28/23 14:00 Pulse Ox 93 L 11/28/23 14:00 FiO2 Intake & Output 11/27/23 11/28/23 11/28/23 18:59 06:59 18:59 Intake Total 400 Output Total 4543 394 Balance -4143 -394 Weight 58 kg 58 kg Intake: Hemodialysis 400 Output: Urine 240 Uretheral (Hays) 240 Post Void Residual 143 154 Hemodialysis 2400 Hemodialysis Net Amount 2000 Other: # Voids 1 # Bowel Movements 1 1 1 - Exam patient is awake, comfortable, Examination of the heart S1 and S2 Examination of the lungs bilateral breath sounds are heard with crackles at the basesExline abdomen is soft nontender Examination of lower extremity shows edema 1+ bilaterally 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 - Labs CBC & Chem 7: 11/28/23 05:39 11/28/23 05:39 Labs: Abnormal Lab Results - Last 24 Hours (Table) 11/27/23 11/27/23 11/28/23 Range/Units 16:40 20:13 05:39 RBC 3.05 L (4.10-5.20) X 10*6/uL Hgb 8.1 L (12.0-15.0) g/dL Hct 27.8 L (37.2-46.3) % MCH 26.6 L (27.0-32.0) pg MCHC 29.1 L (32.0-37.0) g/dL RDW 17.3 H (11.5-14.5) % Immature Gran # 0.12 H (0.00-0.04) X 10*3/uL Lymphocytes # 0.59 L (0.90-5.00) X 10*3/uL Eosinophils # 0.01 L (0.04-0.35) X 10*3/uL Creatinine (0.6-1.5) mg/dL Est GFR (CKD-EPI) (>=60) BUN/Creatinine Ratio (12.00-20.00) Ratio POC Glucose (mg/dL) 133 H 155 H (70-110) mg/dL Calcium (8.7-10.3) mg/dL Alkaline Phosphatase (41-126) U/L Albumin (3.8-4.9) g/dL Globulin (1.6-3.3) g/dL Albumin/Globulin Ratio (1.60-3.17) Ratio 11/28/23 11/28/23 11/28/23 Range/Units 05:39 12:07 16:13 RBC (4.10-5.20) X 10*6/uL Hgb (12.0-15.0) g/dL Hct (37.2-46.3) % MCH (27.0-32.0) pg MCHC (32.0-37.0) g/dL RDW (11.5-14.5) % Immature Gran # (0.00-0.04) X 10*3/uL Lymphocytes # (0.90-5.00) X 10*3/uL Eosinophils # (0.04-0.35) X 10*3/uL Creatinine 1.9 H (0.6-1.5) mg/dL Est GFR (CKD-EPI) 30 L (>=60) BUN/Creatinine Ratio 7.37 L (12.00-20.00) Ratio POC Glucose (mg/dL) 130 H 113 H (70-110) mg/dL Calcium 7.9 L (8.7-10.3) mg/dL Alkaline Phosphatase 259 H (41-126) U/L Albumin 2.7 L (3.8-4.9) g/dL Globulin 3.6 H (1.6-3.3) g/dL Albumin/Globulin Ratio 0.75 L (1.60-3.17) Ratio Microbiology - Last 24 Hours (Table) 11/26/23 10:08 Blood Culture Gram Stain - Preliminary Blood Blood Culture - Preliminary Presumptive MRSA Molecular ID Assessment and Plan Assessment: 1. Acute kidney injury, cardiorenal, with indwelling Hays catheter. History of hemodialysis dependent acute kidney injury which recovered. Patient did not diurese much with Lasix drip and therefore has been restarted on hemodialysis on 11/22/2023. 2. Volume overload, Improving with dialysis. 8 L of fluid removed since admission with hemodialysis. 3. Acute on chronic systolic CHF. EF is 40-45%on echocardiogram on 10/15/2023 4. History of cardiac arrest 5. Chronic kidney disease NKF stage IIIB to IV with baseline creatinine more recently around 1.9-2 mg/dL. 6. Decreased hearing. Patient has been off of Lasix drip. Hearing seems to have improved now Plan: hemodialysis on Saturday schedule. Antibiotics as per ID. We will repeat blood cultures tomorrow with dialysis. Accurate I's and O's continue with torsemide Continue Aranesp
[2023-11-28 20:19] LABS: Glucose,Whole Blood 221 mg/dL (70-110)
[2023-11-29 06:13] LABS: Glucose,Whole Blood 176 mg/dL (70-110)
--- NOTE | 2023-11-29 07:05 | P.PN ---
Subjective Progress Note Date: 11/28/23 HISTORY OF PRESENT ILLNESS: This is a 58-year-old female with a previous medical history signif icant for coronary artery disease status post PCI of the RCA 2023 with ischemic cardiomyopathy, hypertension and hypertensive cardiovascular disease, hyperlipidemia, diabetes mellitus type 2 uncontrolled, chronic kidney disease stage IIIb, anemia of chronic kidney disease, history of COPD, history of severe pulmonary hypertension, history of fracture of the medial lateral malleolus, chronic wound to the right heel that has been healed, patient has been followed by tx Tracy Morris and she was seen yesterday on round and she was complaining of increased weight gain with increased anasarca with increased fluid in bilateral lower extremity all the way up to the thigh all the way up to the abdominal area, was complaining of increased shortness of breath, she was on 2 L nasal cannula her oxygen saturation was 99%, patient was quite anxious and frantic at the group home, she was directed to go to the emergency department for evaluation of acute and chronic systolic heart failure with worsening renal function due to cardiorenal syndrome and consultation was placed for cardiology and nephrology. 11/21: Patient is seen today in follow-up. She has had a dialysis catheter placed today by Dr. Dale. She remains on Lasix drip per nephrology. Extremity and abdominal edema are improving, patient appears to be better today, she has been been started on Solu-Medrol 60 mg IV push every 8 hours yesterday along with nebulized treatment, continue oxygen support, pulmonary evaluation is appreciated, continue to monitor the patient input and output and daily weight, she is less anxious today as she was started on Xanax yesterday as needed, I believe the nephrology is planning for the patient to go for hemodialysis permacatheter was placed by Dr. Dale early in the right internal jugular vein. I will follow-up with the patient very closely. Her prognosis continue to be guarded her daughter and her granddaughter and they were updated yesterday and they were aware that the patient may go for dialysis at this point. 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 day per sanitary chemist Labs reviewed and looks improving leukocytosis, hemoglobin stable at 8.0 creatinine 2.3 and potassium 5.8 Lisinopril remains on hold 11/23 Patient awake alert No back pain She is getting hemodialysis Complains from pain all over her body 11/24: Patient sitting up in chair getting ready to get her hemodialysis for the permacatheter is complaining of a lot of pain all over her body, she has been getting [place] by mouth, she is asking for her morphine sulfate she will be given 2 mg IV push at this time for further control of her pain prior to her hemodialysis, patient appears to be somewhat emotional at this time, she appears a lot better since she was started on dialysis, she is not as edematous as she was before, she continues to have some edema both lower extremities not this bad she appears to have some edema in the right upper extremity we will continue to monitor very closely. Continue current treatment plan, the plan is to transfer the patient back to [facility] when she has a slot for outpatient dialysis. 11/25: Patient sitting up in bed in no apparent distress, she is complaining of increased pain and swelling of the right upper extremity, she continues to have minimal shortness of breath, she continues to have some swelling both lower extremities, she did have dialysis yesterday, will are going to order a venous Doppler of the right upper extremity rule out any deep venous thrombosis, we will start the patient on K-pad's, start the patient on IV antibiotic in the form of cefazolin 2 g IV piggyback every 12 hours, I will obtain blood cultures prior to the antibiotic, we will monitor the patient very closely, await the final result of the ultrasound and we will see how the patient progress over the next 1 or 2 days as far as the swelling of the right upper extremity. 11/26: Patient is laying down in bed does not appear to be in acute distress, she appears to be significantly drowsy, yet she is asking for pain management, we will discontinue morphine completely, continue patient on Wilton as needed, monitor the patient's symptoms very closely, patient blood culture showed evidence of MRSA, switch to Cubicin 350 mg of piggyback every 48 hours, infectious disease consultation was obtained, patient did have recent permacatheter placement for hemodialysis, will continue to follow-up with the patient very closely, her right arm appears to be better, venous Doppler did not show evidence of acute DVT, I will follow-up with the patient very closely. The plan is for the patient to be transferred back to [facility] she already had assignment for hemodialysis as an outpatient in [place]. 11/27: Patient sitting up in bed in no apparent distress, she is more awake and more alert today, she denies any fever or chills, she did receive dialysis yesterday, she has no abdominal pain, nausea vomiting or diarrhea, she was seen in consultation by infectious disease due to MRSA bacteremia, continue patient on daptomycin 350 mg IV piggyback every 48 hours, monitor the patient very closely, echocardiogram was ordered results still pending at the time of dictation, workup for bacteremia still ongoing, likely the patient will be able to discharge hopefully in the next 24 hours back to [facility]. REVIEW OF SYSTEMS: Constitutional: No documented fever, no chills, no night sweats. No weight change. Positive for generalized weakness, fatigue or lethargy. She states she is feeling much better today she continues to have shortness of breath but improved. No daytime sleepiness. EENT: No headache. No blurred vision or double vision, no loss of vision. No loss of Hearing, no ringing in the ears, no dizziness. No nasal drainage or congestion. No epistaxis. No sore throat. Lungs: Positive for less shortness of breath, no cough, no sputum production. No wheezing. Reports dyspnea with activity. Cardiovascular: No chest pain, no lower extremity edema. No palpitations. No paroxysmal nocturnal dyspnea. No orthopnea. No lightheadedness or dizziness. No syncopal episodes. Abdominal: Reports abdominal pain. No nausea, vomiting. No diarrhea. No constipation. No bloody or tarry stools reports loss of appetite. Genitourinary: No dysuria, increased frequency, urgency. No urinary retention. Musculoskeletal: No myalgias. No muscle weakness, positive for gait dysfunction, positive for frequent falls. Positive for back pain and neck pain. Integumentary: Right heel scab, no lesions. No rash or pruritus. No unusual bruising. Positive for change in hair or nails.right upper extremity with erythema and pain and edema Neurologic: No aphasia. No facial droop. No change in mentation. No head injury. No headache. No paralysis. No paresthesia. Psychiatric: No depression. No anxiety. No mood swings. Endocrine: No abnormal blood sugars. No weight change. PHYSICAL EXAMINATION: General: 58-year-old female sitting up in bed in mild respiratory distress. HEENT: Head is atraumatic, normocephalic, pupils were equal round reactive to light and recommendation, extraocular muscle movement were intact, sclera nonicteric, conjunctivae were pale, mucous membranes of the mouth are somewhat dry. Neck: Supple, Increased JVP, normal carotid upstroke bilaterally, no lymphadeno rosemary. Chest: Decreased breath sounds at the bases, few rhonchi, no expiratory wheezes, no chest wall tenderness, no intercostal retractions. Heart: First heart sound is normal, second heart sound is normal there is systolic ejection murmur 2/6 located in the left sternal border. Abdomen: Soft, nontender, nondistended, positive bowel sounds Extremities: There is +1 edema no calf tenderness DP +1 bilaterally. Right heel scab, right upper extremity with increased warmth and swelling with tenderness to palpation Neurologic examination: Patient is awake alert and oriented x3, cranial nerves I I-12 appear grossly intact, muscle power were 3 out of 5 in upper extremities and 3 out of 5 in bilateral lower extremities, deep tendon reflexes normal bilaterally. ASSESSMENT AND PLAN: 1. Right upper extremity cellulitis with MRSA bacteremia. Patient was switched from cefazolin to Cubicin 350 mg of piggyback every 48 hours, infectious disease consultation was obtained from Dr. Subramanian, keep the arm elevated. 2. Acute on chronic systolic heart failure due to ischemic cardiomyopathy. Continue with hemodialysis as scheduled, continue patient on hydralazine 25 mg orally twice every day, monitor the patient very closely.. 3. Acute on chronic kidney disease stage IIIb due to cardiorenal syndrome patient was started on hemodialysis at this time, and she is doing better.. 4. Acute hypoxemic respiratory failure due to acute on chronic systolic heart failure as well as acute exacerbation of COPD. ,continue DuoNeb 3 manipulation 4 times every day, continue oxygen support, continue to monitor input and output and daily weight. 5. Coronary artery disease status post PCI of the RCA. Continue patient on aspirin 81 mg once every day, Plavix 75 mg orally, atorvastatin 40 mg orally o nce every day. Cardiology consultation. 6. Hypertension and hypertensive cardiovascular disease. Continue hydralazine 25 mg orally twice every day, monitor the patient blood pressure very closely. 7. Mixed hyperlipidemia. Continue patient on atorvastatin 40 mg orally, monitor lipid panel, keep LDL 55-70. 8. Diabetes mellitus type 2. Continue patient on sliding scale insulin. 9. Restless leg syndrome. Continue ropinirole 1 mg orally at bedtime. 10. Anemia of chronic kidney disease. Continue patient on Aranesp 40 mcg subcutaneously every week. 11. Hypothyroidism. Continue levothyroxine 75 mcg orally once every day. 12. COPD exacerbation continue patient on DuoNeb 3 mm laceration 4 times every day, continue oxygen 2 L nasal cannula, 13. Chronic hypoxemic respiratory failure due to combination of nonischemic cardiomyopathy and COPD. Continue oxygen 2 L nasal cannula, continue DuoNeb 3 mm residual 4 times every day. 14. Subacute fracture of the medial and lateral malleolus currently in boot no surgical intervention is planned 15. GERD. Continue pantoprazole 40 mg once every day. 16. Medical debility. Physical therapy evaluation. 17. DVT prophylaxis. Heparin 5000 units subcutaneous every 12 hours. 18. GI prophylaxis. Continue PPI. 19. Overall prognosis is very guarded 20. Hypotension. Start the patient on midodrine 5 mg before dialysis. 21. Plan to transfer patient back to [facility] after the workup is done for MRSA bacteremia. Objective - Vital Signs Vital signs: Vital Signs Temp 97.9 F 11/28/23 07:09 Pulse 74 11/28/23 07:09 Resp 16 11/28/23 07:09 BP 114/66 11/28/23 07:09 Pulse Ox 94 L 11/28/23 07:09 FiO2 Intake & Output 11/27/23 11/28/23 11/28/23 18:59 06:59 18:59 Intake Total 400 Output Total 4543 394 Balance -4143 -394 Weight 58 kg 58 kg Intake: Hemodialysis 400 Output: Urine 240 Uretheral (Hays) 240 Post Void Residual 143 154 Hemodialysis 2400 Hemodialysis Net Amount 1999 Other: # Voids 1 # Bowel Movements 1 1 1 - Labs CBC & Chem 7: 11/28/23 05:39 11/28/23 05:39 Labs: Abnormal Lab Results - Last 24 Hours (Table) 11/27/23 11/27/23 11/28/23 Range/Units 16:40 20:13 05:39 RBC 3.05 L (4.10-5.20) X 10*6/uL Hgb 8.1 L (12.0-15.0) g/dL Hct 27.8 L (37.2-46.3) % MCH 26.6 L (27.0-32.0) pg MCHC 29.1 L (32.0-37.0) g/dL RDW 17.3 H (11.5-14.5) % Immature Gran # 0.12 H (0.00-0.04) X 10*3/uL Lymphocytes # 0.59 L (0.90-5.00) X 10*3/uL Eosinophils # 0.01 L (0.04-0.35) X 10*3/uL Creatinine (0.6-1.5) mg/dL Est GFR (CKD-EPI) (>=60) BUN/Creatinine Ratio (12.00-20.00) Ratio POC Glucose (mg/dL) 133 H 155 H (70-110) mg/dL Calcium (8.7-10.3) mg/dL Alkaline Phosphatase (41-126) U/L Albumin (3.8-4.9) g/dL Globulin (1.6-3.3) g/dL Albumin/Globulin Ratio (1.60-3.17) Ratio 11/28/23 Range/Units 05:39 RBC (4.10-5.20) X 10*6/uL Hgb (12.0-15.0) g/dL Hct (37.2-46.3) % MCH (27.0-32.0) pg MCHC (32.0-37.0) g/dL RDW (11.5-14.5) % Immature Gran # (0.00-0.04) X 10*3/uL Lymphocytes # (0.90-5.00) X 10*3/uL Eosinophils # (0.04-0.35) X 10*3/uL Creatinine 1.9 H (0.6-1.5) mg/dL Est GFR (CKD-EPI) 30 L (>=60) BUN/Creatinine Ratio 7.37 L (12.00-20.00) Ratio POC Glucose (mg/dL) (70-110) mg/dL Calcium 7.9 L (8.7-10.3) mg/dL Alkaline Phosphatase 259 H (41-126) U/L Albumin 2.7 L (3.8-4.9) g/dL Globulin 3.6 H (1.6-3.3) g/dL Albumin/Globulin Ratio 0.75 L (1.60-3.17) Ratio Microbiology - Last 24 Hours (Table) 11/26/23 10:08 Blood Culture Gram Stain - Preliminary Blood Blood Culture - Preliminary Presumptive MRSA Molecular ID
[2023-11-29 11:25] LABS: Glucose,Whole Blood 198 mg/dL (70-110)
--- NOTE | 2023-11-29 12:48 | P.PN ---
Subjective patient is seen for follow-up for acute kidney injury, chronic kidney disease and volume overload. Patient was restarted on hemodialysis on 11/22/2023 due to poor response to Lasix drip and worsening volume overload. 8 L of UF since admission with hemodialysis. No shortness of breath noted. 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 Acute kidney injury, cardiorenal, with indwelling Hays catheter. History of hemodialysis dependent acute kidney injury which recovered. Patient did not diurese much with Lasix drip and therefore has been restarted on hemodialysis on 11/22/2023. 2. Volume overload, Improving with dialysis. 8 L of fluid removed since admission with hemodialysis. 3. Acute on chronic systolic CHF. EF is 40-45%on echocardiogram on 10/15/2023 4. History of cardiac arrest 5. Chronic kidney disease NKF stage IIIB to IV with baseline creatinine more recently around 1.9-2 mg/dL. 6. Decreased hearing. Patient has been off of Lasix drip. Hearing seems to have improved now 7. MRSA bacteremia, maintained on antibiotics. Blood cultures will be drawn today with hemodialysis. Plan: hemodialysis on Saturday schedule. Antibiotics as per ID. We will repeat blood cultures with dialysis. Accurate I's and O's continue with torsemide Continue Aranesp
--- NOTE | 2023-11-29 13:34 | P.PN ---
Subjective Progress Note Date: 11/29/23 This is a 58-year-old female patient with a known history of chronic kidney disease with previous temporary hemodialysis, chronic anemia, coronary artery disease with previous stent to the RCA, previous cardiac arrest, nonhealing right heel pressure wound, hypertension, hyperlipidemia, diabetes mellitus, severe pulmonary hypertension, COPD, former smoker congestive heart failure. She presented here to the emergency room yesterday with complaints of increasing shortness of breath and swelling all over. Chest x-ray reviewed with hazy appearance representing atelectasis versus pulmonary edema. White count 0.9. Platelets 167. Sodium 138. Potassium 5.1. Bicarb 24. BUN 57. Creatinine 2.5. Glucose 127. proBNP 33,100. She is seen today in consultation on the regular medical floor. She is currently sitting up in a chair at the bedside. Awake and alert in no acute distress. Somewhat of a poor historian. She is maintaining good O2 saturations in the 90s on 2 L/min per nasal cannula. She is afebrile. Hemodynamically stable. The patient is seen today November 22, 2023 in follow-up on the regular medical floor. She is currently sitting up in a chair at the bedside. Awake and alert in no acute distress. Breathing a bit easier today compared to yesterday. She is maintaining O2 saturations in the 90s on 2 L/min per nasal cannula. She is afebrile. Hemodynamically stable. Follow-up chest x-ray shows mild improvement in the pulmonary venous congestion. Bilateral infiltrates and small effusions stable. She remains on a Lasix drip at 10 mg/h. White count 11.9. Hemoglobin 7.9. Platelets 182. Sodium 138. Potassium 5.7. Bicarb 25. BUN 58. Creatinine 2.7. Glucose 115. She remains on DuoNeb inhalations. Heparin for DVT prophylaxis. The patient is seen today November 23, 2023 in follow-up on the regular medical floor. She is currently sitting up in bed. Awake and alert in no acute distress. Maintaining O2 saturations in the 90s on 2 L/min per nasal cannula. She did have a permacath placed yesterday. She did receive hemodialysis with 2 L of fluid removed. Plan is for dialysis again today. White count 8.9. Hemoglobin 8.0. Platelets 169. Glucose 155. She remains on a Lasix drip at 10 mg/h. Heparin for DVT prophylaxis. Continued on bronchodilators. The patient is seen today November 24, 2023 in follow-up on the regular medical floor. She is currently resting comfortably in bed. Awake and alert in no acute distress. She is maintaining O2 saturations in the 90s on 2 L/min per nasal cannula. She remains on bronchodilators. Heparin for DVT prophylaxis. She is continued on hemodialysis with another 3 L of fluid removed today. Glucose 119. The patient is seen today November 25, 2023 in follow-up on the regular medical floor. She is up in a chair at the bedside. Awake and alert in no acute distress. Maintaining O2 saturations in the upper 90s on 2 L/min per nasal cannula. Afebrile. Hemodynamically stable. Glucose 115. She remains on [facility] hodilators. Heparin for DVT prophylaxis. Plan is for hemodialysis again today. The patient is seen today November 26, 2023 in follow-up on the regular medical floor. She is currently up in a chair. Maintaining good O2 saturations in the 90s on room air. Feeling better. Doppler of the right upper extremity ruled out DVT. There is some edema. White count 10.8. Hemoglobin 7.8. Platelets 196. Sodium 136. Potassium 4.0. Bicarb 27. BUN 14. Creatinine 1.7. Glucose 98. She is on heparin for DVT prophylaxis. Remains on bronchodilators. Initiated on cefazolin. The patient is seen today November 28, 2023 in follow-up on the regular medical floor. She is resting in bed. Awake and alert in no acute distress. Continues to maintain good O2 saturations in the 90s on room air. Occasionally uses 2 L of oxygen if short of breath. White count 7.1. Hemoglobin 8.1. Platelets 204. Sodium 136. Potassium 3.7. Bicarb 28. BUN 14. Creatinine 1.9. Glucose 97. Cultures revealing presumptive MRSA. She is currently on daptomycin. Heparin for DVT prophylaxis. Bronchodilators as needed. The patient is seen today November 29, 2023 in follow-up on the regular medical floor. She is currently sitting up in a chair. Awake and alert in no acute distress. Maintaining good O2 saturations in the 90s on room air. Been afebrile. Hemodynamically stable. Is for hemodialysis today as she is on a Saturday schedule now. Blood cultures are positive for MRSA. Follow-up blood culture pending. Glucose 198. She remains on daptomycin. Objective - Vital Signs Vital signs: Vital Signs Temp 97.9 F 11/29/23 07:42 Pulse 64 11/29/23 07:42 Resp 16 11/29/23 07:42 BP 116/62 11/29/23 07:42 Pulse Ox 97 11/29/23 07:42 FiO2 Intake & Output 11/28/23 11/29/23 11/29/23 18:59 06:59 18:59 Weight 58.2 kg Other: # Voids 1 1 # Bowel Movements 1 - Exam GENERAL EXAM: Alert, pleasant 58-year-old female, sitting up in a chair, on room air, in no apparent distress. HEAD: Normocephalic. EYES: Normal reaction of pupils, equal size. NOSE: Clear with pink turbinates. THROAT: No erythema or exudates. NECK: No masses, no JVD. CHEST: No chest wall deformity. Right internal jugular HemoCath in place LUNGS: Equal air entry with crackles in the bilateral bases. CVS: S1 and S2 normal with no audible murmur, regular rhythm. ABDOMEN: No hepatosplenomegaly, normal bowel sounds, no guarding or rigidity. SPINE: No scoliosis or deformity SKIN: No rashes CENTRAL NERVOUS SYSTEM: No focal deficits, tone is normal in all 4 extremities. EXTREMITIES: There is 1-2+ peripheral edema. Right lower extremity in a hard boot. Peripheral pulses are intact. - Labs CBC & Chem 7: 11/28/23 05:39 11/28/23 05:39 Labs: Abnormal Lab Results - Last 24 Hours (Table) 11/28/23 11/28/23 11/29/23 Range/Units 16:13 20:17 06:11 POC Glucose (mg/dL) 113 H 221 H 176 H (70-110) mg/dL 11/29/23 Range/Units 11:23 POC Glucose (mg/dL) 198 H (70-110) mg/dL Microbiology - Last 24 Hours (Table) 11/26/23 10:08 Blood Culture Gram Stain - Final Blood Blood Culture - Final Methicillin resist S. aureus Molecular ID 11/28/23 05:39 Blood Culture - Preliminary Blood Assessment and Plan Assessment: Acute hypoxic respiratory failure secondary to an acute exacerbation of diasto lic congestive heart failure Bacteremia secondary to MRSA Chronic anemia Chronic kidney disease with previous hemodialysis and now hemodialysis resumed again 11/22/2023. On a Saturday schedule Coronary artery disease with previous stenting Pulmonary hypertension Hypertension Hyperlipidemia Diabetes mellitus Chronic wounds of the lower extremities more so on the right heel Previous cardiac arrest with extended stay in the intensive care unit in July 2023 History of complete rectal prolapse with previous attempts to replace Chronic obstructive pulmonary disease Former smoker History of previous urinary tract infections with E. coli and Proteus Plan: The patient was seen and evaluated Labs and medications reviewed Blood cultures positive for MRSA Currently on daptomycin per ID service Plan is for [facility] with hemodialysis at [facility] [place] [facility] once discharged I have personally seen and examined the patient, performed the documentation and the assessment and plan as written. Number of minutes spent on the visit: 10.
[2023-11-29 16:44] LABS: Glucose,Whole Blood 144 mg/dL (70-110)
--- NOTE | 2023-11-29 17:18 | P.PN ---
Subjective Progress Note Date: 11/29/23 HISTORY OF PRESENT ILLNESS: This is a 58-year-old female with a previous medical history signif icant for coronary artery disease status post PCI of the RCA 2023 with ischemic cardiomyopathy, hypertension and hypertensive cardiovascular disease, hyperlipidemia, diabetes mellitus type 2 uncontrolled, chronic kidney disease stage IIIb, anemia of chronic kidney disease, history of COPD, history of severe pulmonary hypertension, history of fracture of the medial lateral malleolus, chronic wound to the right heel that has been healed, patient has been followed by ar Tracy Morris and she was seen yesterday on round and she was complaining of increased weight gain with increased anasarca with increased fluid in bilateral lower extremity all the way up to the thigh all the way up to the abdominal area, was complaining of increased shortness of breath, she was on 2 L nasal cannula her oxygen saturation was 99%, patient was quite anxious and frantic at the [facility], she was directed to go to the emergency department for evaluation of acute and chronic systolic heart failure with worsening renal function due to cardiorenal syndrome and consultation was placed for cardiology and nephrology. 11/21: Patient is seen today in follow-up. She has had a dialysis catheter placed today by Dr. Dale. She remains on Lasix drip per nephrology. Extremity and abdominal edema are improving, patient appears to be better today, she has been been started on Solu-Medrol 60 mg IV push every 8 hours yesterday along with nebulized treatment, continue oxygen support, pulmonary evaluation is appreciated, continue to monitor the patient input and output and daily weight, she is less anxious today as she was started on Xanax yesterday as needed, I believe the nephrology is planning for the patient to go for hemodialysis permacatheter was placed by Dr. Dale early in the right internal jugular vein. I will follow-up with the patient very closely. Her prognosis continue to be guarded her daughter and her granddaughter and they were updated yesterday and they were aware that the patient may go for dialysis at this point. 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 Labs reviewed and looks improving leukocytosis, hemoglobin stable at 8.0 creatinine 2.3 and potassium 5.8 Lisinopril remains on hold 11/23 Patient awake alert No back pain She is getting hemodialysis Complains from pain all over her body 11/24: Patient sitting up in chair getting ready to get her hemodialysis for the permacatheter is complaining of a lot of pain all over her body, she has been getting Holmen by mouth, she is asking for her morphine sulfate she will be given 2 mg IV push at this time for further control of her pain prior to her hemodialysis, patient appears to be somewhat emotional at this time, she appears a lot better since she was started on dialysis, she is not as edematous as she was before, she continues to have some edema both lower extremities not this bad she appears to have some edema in the right upper extremity we will continue to monitor very closely. Continue current treatment plan, the plan is to transfer the patient back to [facility] when she has a slot for outpatient dialysis. 11/25: Patient sitting up in bed in no apparent distress, she is complaining of increased pain and swelling of the right upper extremity, she continues to have minimal shortness of breath, she continues to have some swelling both lower extremities, she did have dialysis yesterday, will are going to order a venous Doppler of the right upper extremity rule out any deep venous thrombosis, we will start the patient on K-pad's, start the patient on IV antibiotic in the form of cefazolin 2 g IV piggyback every 12 hours, I will obtain blood cultures prior to the antibiotic, we will monitor the patient very closely, await the final result of the ultrasound and we will see how the patient progress over the next 1 or 2 days as far as the swelling of the right upper extremity. 11/26: Patient is laying down in bed does not appear to be in acute distress, she appears to be significantly drowsy, yet she is asking for pain management, we will discontinue morphine completely, continue patient on Holmen as needed, monitor the patient's symptoms very closely, patient blood culture showed evidence of MRSA, switch to Cubicin 350 mg of piggyback every 48 hours, infectious disease consultation was obtained, patient did have recent permacatheter placement for hemodialysis, will continue to follow-up with the patient very closely, her right arm appears to be better, venous Doppler did not show evidence of acute DVT, I will follow-up with the patient very closely. The plan is for the patient to be transferred back to [facility] she already had assignment for hemodialysis as an outpatient in [place]. 11/27: Patient sitting up in bed in no apparent distress, she is more awake and more alert today, she denies any fever or chills, she did receive dialysis yesterday, she has no abdominal pain, nausea vomiting or diarrhea, she was seen in consultation by infectious disease due to MRSA bacteremia, continue patient on daptomycin 350 mg IV piggyback every 48 hours, monitor the patient very closely, echocardiogram was ordered results still pending at the time of dictation, workup for bacteremia still ongoing, likely the patient will be able to discharge hopefully in the next 24 hours back to [facility]. 11/28: Patient sitting up in chair at this time, seems a bit tired today. Patient denies any fever or chills. Patient denies chest pain, shortness of breath, nausea vomiting or diarrhea. Repeat blood culture preliminary report shows no growth. Patient currently on a Saturday dialysis schedule. Continue patient on daptomycin 350 mg IV piggyback every 48 hours. Patient will hopefully be discharged back to [facility] tomorrow. REVIEW OF SYSTEMS: Constitutional: No documented fever, no chills, no night sweats. No weight change. Positive for generalized weakness, fatigue or lethargy. She states she is feeling much better today she continues to have shortness of breath but improved. No daytime sleepiness. EENT: No headache. No blurred vision or double vision, no loss of vision. No loss of Hearing, no ringing in the ears, no dizziness. No nasal drainage or congestion. No epistaxis. No sore throat. Lungs: Positive for less shortness of breath, no cough, no sputum production. No wheezing. Reports dyspnea with activity. Cardiovascular: No chest pain, no lower extremity edema. No palpitations. No paroxysmal nocturnal dyspnea. No orthopnea. No lightheadedness or dizziness. No syncopal episodes. Abdominal: Reports abdominal pain. No nausea, vomiting. No diarrhea. No constipation. No bloody or tarry stools reports loss of appetite. Genitourinary: No dysuria, increased frequency, urgency. No urinary retention. Musculoskeletal: No myalgias. No muscle weakness, positive for gait dysfunction, positive for frequent falls. Positive for back pain and neck pain. Integumentary: Right heel scab, no lesions. No rash or pruritus. No unusual bruising. Positive for change in hair or nails.right upper extremity with erythema and pain and edema Neurologic: No aphasia. No facial droop. No change in mentation. No head injury. No headache. No paralysis. No paresthesia. Psychiatric: No depression. No anxiety. No mood swings. Endocrine: No abnormal blood sugars. No weight change. PHYSICAL EXAMINATION: General: 58-year-old female sitting up in bed in mild respiratory distress. HEENT: Head is atraumatic, normocephalic, pupils were equal round reactive to light and recommendation, extraocular muscle movement were intact, sclera non icteric, conjunctivae were pale, mucous membranes of the mouth are somewhat dry. Neck: Supple, Increased JVP, normal carotid upstroke bilaterally, no lymphadenopathy. Chest: Decreased breath sounds at the bases, few rhonchi, no expiratory wheezes, no chest wall tenderness, no intercostal retractions. Heart: First heart sound is normal, second heart sound is normal there is systolic ejection murmur 2/6 located in the left sternal border. Abdomen: Soft, nontender, nondistended, positive bowel sounds Extremities: There is +1 edema no calf tenderness DP +1 bilaterally. Right heel scab, right upper extremity with increased warmth and swelling with tenderness to palpation Neurologic examination: Patient is awake alert and oriented x3, cranial nerves II-12 appear grossly intact, muscle power were 3 out of 5 in upper extremities and 3 out of 5 in bilateral lower extremities, deep tendon reflexes normal bilaterally. ASSESSMENT AND PLAN: 1. Right upper extremity cellulitis with MRSA bacteremia. Continue Cubicin 350 mg of piggyback every 48 hours, infectious disease consultation was obtained from Dr. Subramanian, keep the arm elevated. 2. Acute on chronic systolic heart failure due to ischemic cardiomyopathy. Continue with hemodialysis as scheduled, continue patient on hydralazine 25 mg orally twice every day, monitor the patient very closely. 3. Acute on chronic kidney disease stage IIIb due to cardiorenal syndrome patient was started on hemodialysis at this time, and she is doing better. 4. Acute hypoxemic respiratory failure due to acute on chronic systolic heart failure as well as acute exacerbation of COPD. Continue DuoNeb 3 manipulation 4 times every day, continue oxygen support, continue to monitor input and output and daily weight. 5. Coronary artery disease status post PCI of the RCA. Continue patient on aspirin 81 mg once every day, Plavix 75 mg orally, atorvastatin 40 mg orally once every day. Cardiology consultation. 6. Hypertension and hypertensive cardiovascular disease. Continue hydralazine 25 mg orally twice every day, monitor the patient blood pressure very closely. 7. Mixed hyperlipidemia. Continue patient on atorvastatin 40 mg orally, monitor lipid panel, keep LDL 55-70. 8. Diabetes mellitus type 2. Continue patient on sliding scale insulin. 9. Restless leg syndrome. Continue ropinirole 1 mg orally at bedtime. 10. Anemia of chronic kidney disease. Continue patient on Aranesp 40 mcg subcutaneously every week. 11. Hypothyroidism. Continue levothyroxine 75 mcg orally once every day. 12. COPD exacerbation continue patient on DuoNeb 3 mm laceration 4 times every day, continue oxygen 2 L nasal cannula, 13. Chronic hypoxemic respiratory failure due to combination of nonischemic cardiomyopathy and COPD. Continue oxygen 2 L nasal cannula, continue DuoNeb 3 mm residual 4 times every day. 14. Subacute fracture of the medial and lateral malleolus currently in boot no surgical intervention is planned 15. GERD. Continue pantoprazole 40 mg once every day. 16. Medical debility. Physical therapy evaluation. 17. DVT prophylaxis. Heparin 5000 units subcutaneous every 12 hours. 18. GI prophylaxis. Continue PPI. 19. Overall prognosis is very guarded 20. Hypotension. Start the patient on midodrine 5 mg before dialysis. 21. Plan to transfer patient back to [facility] after the workup is done for MRSA bacteremia. Impression and plan of care have been directed as dictated by the signing physician. Roz Carpenter, nurse practitioner acting as scribe for signing physician. Objective - Vital Signs Vital signs: Vital Signs Temp 97.8 F 11/29/23 14:00 Pulse 60 11/29/23 14:00 Resp 15 11/29/23 14:00 BP 132/72 11/29/23 14:00 Pulse Ox 96 08/02/24 14:00 FiO2 Intake & Output 11/28/23 11/29/23 11/29/23 18:59 06:59 18:59 Weight 58.2 kg 58.2 kg Other: # Voids 1 1 # Bowel Movements 1 - Labs CBC & Chem 7: 11/28/23 05:39 11/28/23 05:39 Labs: Abnormal Lab Results - Last 24 Hours (Table) 11/28/23 11/29/23 11/29/23 Range/Units 20:17 06:11 11:23 POC Glucose (mg/dL) 221 H 176 H 198 H (70-110) mg/dL 11/29/23 Range/Units 16:43 POC Glucose (mg/dL) 144 H (70-110) mg/dL Microbiology - Last 24 Hours (Table) 11/26/23 10:08 Blood Culture Gram Stain - Final Blood Blood Culture - Final Methicillin resist S. aureus Molecular ID 11/28/23 05:39 Blood Culture - Preliminary Blood
[2023-11-29 21:22] LABS: Glucose,Whole Blood 213 mg/dL (70-110)
[2023-11-30 06:27] LABS: Glucose,Whole Blood 111 mg/dL (70-110)
[2023-11-30 09:12] LABS: ALT <6 U/L (4-34); AST 28 U/L (14-36); African American GFR (CKD) 46 (>60 ml/min/1.73 sqM); Albumin 2.7 g/dL (3.5-5.0); Albumin/Globulin Ratio 0.7; Alkaline Phosphatase 209 U/L (38-126); Anion Gap 1 mmol/L; Blood Urea Nitrogen 16 mg/dL (7-17); Calcium 7.8 mg/dL (8.4-10.2); Carbon Dioxide 32 mmol/L (22-30); Chloride 100 mmol/L (98-107); Globulin 3.8 g/dL; Glucose 119 mg/dL (74-99); Non-African American GFR(CKD) 40 (>60 ml/min/1.73 sqM); Potassium 3.8 mmol/L (3.5-5.1); Sodium 133 mmol/L (137-145); Total Bilirubin 0.4 mg/dL (0.2-1.3); Total Protein 6.5 g/dL (6.3-8.2)
[2023-11-30 09:20] LABS: Anisocytosis Slight; Basophils % (A) 1 %; Eosinophils # (A) 0.2 k/uL (0-0.7); Eosinophils % (A) 3 %; HCT 28.4 % (34.0-46.0); HGB 8.2 gm/dL (11.4-16.0); Hypochromasia Marked; Lymphocytes # (A) 0.8 k/uL (1.0-4.8); Lymphocytes % (A) 11 %; MCV 89.8 fL (80.0-100.0); Mean Platelet Volume 8.5; Monocytes # (A) 0.6 k/uL (0-1.0); Monocytes % (A) 8 %; Neutrophils # (A) 5.2 k/uL (1.3-7.7); Neutrophils % (A) 75 %; Platelet Count 238 k/uL (150-450); RBC 3.16 m/uL (3.80-5.40); RDW 16.6 % (11.5-15.5); WBC 6.9 k/uL (3.8-10.6)
[2023-11-30 11:25] LABS: Glucose,Whole Blood 163 mg/dL (70-110)
[2023-11-30] MEDS: HYDROcodone/APAP 7.5-325MG 1 EACH TAB PO PRN (11:37)
--- NOTE | 2023-11-30 11:39 | P.PN ---
Subjective Progress Note Date: 11/30/23 This is a 58-year-old female patient with a known history of chronic kidney disease with previous temporary hemodialysis, chronic anemia, coronary artery disease with previous stent to the RCA, previous cardiac arrest, nonhealing right heel pressure wound, hypertension, hyperlipidemia, diabetes mellitus, severe pulmonary hypertension, COPD, former smoker congestive heart failure. She presented here to the emergency room yesterday with complaints of increasing shortness of breath and swelling all over. Chest x-ray reviewed with hazy appearance representing atelectasis versus pulmonary edema. White count 0.9. Platelets 167. Sodium 138. Potassium 5.1. Bicarb 24. BUN 57. Creatinine 2.5. Glucose 127. proBNP 33,100. She is seen today in consultation on the regular medical floor. She is currently sitting up in a chair at the bedside. Awake and alert in no acute distress. Somewhat of a poor historian. She is maintaining good O2 saturations in the 90s on 2 L/min per nasal cannula. She is afebrile. Hemodynamically stable. The patient is seen today November 22, 2023 in follow-up on the regular medical floor. She is currently sitting up in a chair at the bedside. Awake and alert in no acute distress. Breathing a bit easier today compared to yesterday. She is maintaining O2 saturations in the 90s on 2 L/min per nasal cannula. She is afebrile. Hemodynamically stable. Follow-up chest x-ray shows mild improvement in the pulmonary venous congestion. Bilateral infiltrates and small effusions stable. She remains on a Lasix drip at 10 mg/h. White count 11.9. Hemoglobin 7.9. Platelets 182. Sodium 138. Potassium 5.7. Bicarb 25. BUN 58. Creatinine 2.7. Glucose 115. She remains on DuoNeb inhalations. Heparin for DVT prophylaxis. The patient is seen today November 23, 2023 in follow-up on the regular medical floor. She is currently sitting up in bed. Awake and alert in no acute distress. Maintaining O2 saturations in the 90s on 2 L/min per nasal cannula. She did have a permacath placed yesterday. She did receive hemodialysis with 2 L of fluid removed. Plan is for dialysis again today. White count 8.9. Hemoglobin 8.0. Platelets 169. Glucose 155. She remains on a Lasix drip at 10 mg/h. Heparin for DVT prophylaxis. Continued on bronchodilators. The patient is seen today November 24, 2023 in follow-up on the regular medical floor. She is currently resting comfortably in bed. Awake and alert in no acute distress. She is maintaining O2 saturations in the 90s on 2 L/min per nasal cannula. She remains on bronchodilators. Heparin for DVT prophylaxis. She is continued on hemodialysis with another 3 L of fluid removed today. Glucose 119. The patient is seen today November 25, 2023 in follow-up on the regular medical floor. She is up in a chair at the bedside. Awake and alert in no acute distress. Maintaining O2 saturations in the upper 90s on 2 L/min per nasal cannula. Afebrile. Hemodynamically stable. Glucose 115. She remains on [facility] hodilators. Heparin for DVT prophylaxis. Plan is for hemodialysis again today. The patient is seen today November 26, 2023 in follow-up on the regular medical floor. She is currently up in a chair. Maintaining good O2 saturations in the 90s on room air. Feeling better. Doppler of the right upper extremity ruled out DVT. There is some edema. White count 10.8. Hemoglobin 7.8. Platelets 196. Sodium 136. Potassium 4.0. Bicarb 27. BUN 14. Creatinine 1.7. Glucose 98. She is on heparin for DVT prophylaxis. Remains on bronchodilators. Initiated on cefazolin. The patient is seen today November 28, 2023 in follow-up on the regular medical floor. She is resting in bed. Awake and alert in no acute distress. Continues to maintain good O2 saturations in the 90s on room air. Occasionally uses 2 L of oxygen if short of breath. White count 7.1. Hemoglobin 8.1. Platelets 204. Sodium 136. Potassium 3.7. Bicarb 28. BUN 14. Creatinine 1.9. Glucose 97. Cultures revealing presumptive MRSA. She is currently on daptomycin. Heparin for DVT prophylaxis. Bronchodilators as needed. The patient is seen today November 29, 2023 in follow-up on the regular medical floor. She is currently sitting up in a chair. Awake and alert in no acute distress. Maintaining good O2 saturations in the 90s on room air. Been afebrile. Hemodynamically stable. Is for hemodialysis today as she is on a Saturday schedule now. Blood cultures are positive for MRSA. Follow-up blood culture pending. Glucose 198. She remains on daptomycin. The patient is seen today November 30, 2023 in follow-up on the regular medical floor. She is sitting up at the bedside. Awake and alert in no acute distress. Maintaining O2 saturations in the 90s on room air. White count 6.9. Hemoglobin 8.2 platelets 238. Sodium 133. Potassium 3.8. Bicarb 32. BUN 16. Creatinine 1.43. Glucose 119. She remains on DuoNeb inhalations as needed. Heparin for DVT prophylaxis. Continued on daptomycin. Objective - Vital Signs Vital signs: Vital Signs Temp 97.6 F 11/30/23 07:35 Pulse 70 11/30/23 07:35 Resp 16 11/30/23 07:35 BP 152/60 11/30/23 07:35 Pulse Ox 96 11/30/23 09:12 FiO2 Intake & Output 11/29/23 11/30/23 11/30/23 18:59 06:59 18:59 Intake Total 500 Output Total 4500 Balance -4000 Weight 58.2 kg 58.1 kg Intake: Hemodialysis 500 Output: Hemodialysis 2500 Hemodialysis Net Amount 2000 Other: Voiding Method Indwelling Catheter # Voids 0 # Bowel Movements 1 - Exam GENERAL EXAM: Alert, 58-year-old female, on room air, in no apparent distress. HEAD: Normocephalic. EYES: Normal reaction of pupils, equal size. NOSE: Clear with pink turbinates. THROAT: No erythema or exudates. NECK: No masses, no JVD. CHEST: No chest wall deformity. Right internal jugular HemoCath in place LUNGS: Equal air entry with crackles in the bilateral bases. CVS: S1 and S2 normal with no audible murmur, regular rhythm. ABDOMEN: No hepatosplenomegaly, normal bowel sounds, no guarding or rigidity. SPINE: No scoliosis or deformity SKIN: No rashes CENTRAL NERVOUS SYSTEM: No focal deficits, tone is normal in all 4 extremities. EXTREMITIES: There is 1-2+ peripheral edema. Right lower extremity in a hard boot. Peripheral pulses are intact. - Labs CBC & Chem 7: 11/30/23 08:28 11/30/23 08:28 Labs: Abnormal Lab Results - Last 24 Hours (Table) 11/29/23 11/29/23 11/29/23 Range/Units 11:23 16:43 21:19 RBC (3.80-5.40) m/uL Hgb (11.4-16.0) gm/dL Hct (34.0-46.0) % MCHC (31.0-37.0) g/dL RDW (11.5-15.5) % Lymphocytes # (1.0-4.8) k/uL Sodium (137-145) mmol/L Carbon Dioxide (22-30) mmol/L Creatinine (0.52-1.04) mg/dL Glucose (74-99) mg/dL POC Glucose (mg/dL) 198 H 144 H 213 H (70-110) mg/dL Calcium (8.4-10.2) mg/dL Alkaline Phosphatase (38-126) U/L Albumin (3.5-5.0) g/dL 11/30/23 11/30/23 11/30/23 Range/Units 06:25 08:28 08:28 RBC 3.16 L (3.80-5.40) m/uL Hgb 8.2 L (11.4-16.0) gm/dL Hct 28.4 L (34.0-46.0) % MCHC 29.0 L (31.0-37.0) g/dL RDW 16.6 H (11.5-15.5) % Lymphocytes # 0.8 L (1.0-4.8) k/uL Sodium 133 L (137-145) mmol/L Carbon Dioxide 32 H (22-30) mmol/L Creatinine 1.43 H (0.52-1.04) mg/dL Glucose 119 H (74-99) mg/dL POC Glucose (mg/dL) 111 H (70-110) mg/dL Calcium 7.8 L (8.4-10.2) mg/dL Alkaline Phosphatase 209 H (38-126) U/L Albumin 2.7 L (3.5-5.0) g/dL Microbiology - Last 24 Hours (Table) 11/26/23 10:08 Blood Culture Gram Stain - Final Blood Blood Culture - Final Methicillin resist S. aureus Molecular ID 11/28/23 05:39 Blood Culture - Preliminary Blood Assessment and Plan Assessment: Acute hypoxic respiratory failure secondary to an acute exacerbation of diastolic congestive heart failure Bacteremia secondary to MRSA Chronic anemia Chronic kidney disease with previous hemodialysis and now hemodialysis resumed again 11/22/2023. On a Saturday schedule Coronary artery disease with previous stenting Pulmonary hypertension Hypertension Hyperlipidemia Diabetes mellitus Chronic wounds of the lower extremities more so on the right heel Previous cardiac arrest with extended stay in the intensive care unit in July 2023 History of complete rectal prolapse with previous attempts to replace Chronic obstructive pulmonary disease Former smoker History of previous urinary tract infections with E. coli and Proteus Plan: The patient was seen and evaluated Labs and medications reviewed Remains stable and on room air Currently on daptomycin Plan is for [facility] with hemodialysis at [facility] upon discharge I have personally seen and examined the patient, performed the documentation and the assessment and plan as written. Number of minutes spent on the visit: 10.
--- NOTE | 2023-11-30 13:36 | P.PN ---
Subjective Progress Note Date: 11/30/23 HISTORY OF PRESENT ILLNESS: This is a 58-year-old female with a previous medical history signif icant for coronary artery disease status post PCI of the RCA 2023 with ischemic cardiomyopathy, hypertension and hypertensive cardiovascular disease, hyperlipidemia, diabetes mellitus type 2 uncontrolled, chronic kidney disease stage IIIb, anemia of chronic kidney disease, history of COPD, history of severe pulmonary hypertension, history of fracture of the medial lateral malleolus, chronic wound to the right heel that has been healed, patient has been followed by mi [facility] and she was seen yesterday on round and she was complaining of increased weight gain with increased anasarca with increased fluid in bilateral lower extremity all the way up to the thigh all the way up to the abdominal area, was complaining of increased shortness of breath, she was on 2 L nasal cannula her oxygen saturation was 99%, patient was quite anxious and frantic at the skilled nursing, she was directed to go to the emergency department for evaluation of acute and chronic systolic heart failure with worsening renal function due to cardiorenal syndrome and consultation was placed for cardiology and nephrology. 11/21: Patient is seen today in follow-up. She has had a dialysis catheter placed today by Dr. Dale. She remains on Lasix drip per nephrology. Extremity and abdominal edema are improving, patient appears to be better today, she has been been started on Solu-Medrol 60 mg IV push every 8 hours yesterday along with nebulized treatment, continue oxygen support, pulmonary evaluation is appreciated, continue to monitor the patient input and output and daily weight, she is less anxious today as she was started on Xanax yesterday as needed, I believe the nephrology is planning for the patient to go for hemodialysis permacatheter was placed by Dr. Dale early in the right internal jugular vein. I will follow-up with the patient very closely. Her prognosis continue to be guarded her daughter and her granddaughter and they were updated yesterday and they were aware that the patient may go for dialysis at this point. 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 day per stock lifter Labs reviewed and looks improving leukocytosis, hemoglobin stable at 8.0 creatinine 2.3 and potassium 5.8 Lisinopril remains on hold 11/23 Patient awake alert No back pain She is getting hemodialysis Complains from pain all over her body 11/24: Patient sitting up in chair getting ready to get her hemodialysis for the permacatheter is complaining of a lot of pain all over her body, she has been getting Demorest by mouth, she is asking for her morphine sulfate she will be given 2 mg IV push at this time for further control of her pain prior to her hemodialysis, patient appears to be somewhat emotional at this time, she appears a lot better since she was started on dialysis, she is not as edematous as she was before, she continues to have some edema both lower extremities not this bad she appears to have some edema in the right upper extremity we will continue to monitor very closely. Continue current treatment plan, the plan is to transfer the patient back to [facility] when she has a slot for outpatient dialysis. 11/25: Patient sitting up in bed in no apparent distress, she is complaining of increased pain and swelling of the right upper extremity, she continues to have minimal shortness of breath, she continues to have some swelling both lower extremities, she did have dialysis yesterday, will are going to order a venous Doppler of the right upper extremity rule out any deep venous thrombosis, we will start the patient on K-pad's, start the patient on IV antibiotic in the form of cefazolin 2 g IV piggyback every 12 hours, I will obtain blood cultures prior to the antibiotic, we will monitor the patient very closely, await the final result of the ultrasound and we will see how the patient progress over the next 1 or 2 days as far as the swelling of the right upper extremity. 11/26: Patient is laying down in bed does not appear to be in acute distress, she appears to be significantly drowsy, yet she is asking for pain management, we will discontinue morphine completely, continue patient on Demorest as needed, monitor the patient's symptoms very closely, patient blood culture showed evidence of MRSA, switch to Cubicin 350 mg of piggyback every 48 hours, infectious disease consultation was obtained, patient did have recent permacatheter placement for hemodialysis, will continue to follow-up with the patient very closely, her right arm appears to be better, venous Doppler did not show evidence of acute DVT, I will follow-up with the patient very closely. The plan is for the patient to be transferred back to [facility] she already had assignment for hemodialysis as an outpatient in [place]. 8: Patient sitting up in bed in no apparent distress, she is more awake and more alert today, she denies any fever or chills, she did receive dialysis yesterday, she has no abdominal pain, nausea vomiting or diarrhea, she was seen in consultation by infectious disease due to MRSA bacteremia, continue patient on daptomycin 350 mg IV piggyback every 48 hours, monitor the patient very closely, echocardiogram was ordered results still pending at the time of dictation, workup for bacteremia still ongoing, likely the patient will be able to discharge hopefully in the next 24 hours back to [facility]. 11/28: Patient sitting up in chair at this time, seems a bit tired today. Patient denies any fever or chills. Patient denies chest pain, shortness of breath, nausea vomiting or diarrhea. Repeat blood culture preliminary report shows no growth. Patient currently on a Saturday dialysis schedule. Continue patient on daptomycin 350 mg IV piggyback every 48 hours. Patient will hopefully be discharged back to [facility] tomorrow. 3: Patient sitting up in bed in no apparent distress. She is more alert today than yesterday. Patient denies any fever or chills, denies chest pain or shortness of breath. Patient still complaining of pain. We increased her hydrocodoneacetaminophen from 5325 to 7.5-325 mg once every 4 hours as needed. Final blood culture still pending, continue daptomycin 300 IV piggyback every 48 hours. Patient to receive dialysis next on Saturday. Also awaiting infectious disease recommendation prior to discharge back to [facility]. REVIEW OF SYSTEMS: Constitutional: No documented fever, no chills, no night sweats. No weight change. Positive for generalized weakness, fatigue or lethargy. She states she is feeling much better today she continues to have shortness of breath but improved. No daytime sleepiness. EENT: No headache. No blurred vision or double vision, no loss of vision. No loss of Hearing, no ringing in the ears, no dizziness. No nasal drainage or congestion. No epistaxis. No sore throat. Lungs: Positive for less shortness of breath, no cough, no sputum production. No wheezing. Reports dyspnea with activity. Cardiovascular: No chest pain, no lower extremity edema. No palpitations. No paroxysmal nocturnal dyspnea. No orthopnea. No lightheadedness or dizziness. No syncopal episodes. Abdominal: Reports abdominal pain. No nausea, vomiting. No diarrhea. No constipation. No bloody or tarry stools reports loss of appetite. Genitourinary: No dysuria, increased frequency, urgency. No urinary retention. Musculoskeletal: No myalgias. No muscle weakness, positive for gait dysfunction, positive for frequent falls. Positive for back pain and neck pain. Integumentary: Right heel scab, no lesions. No rash or pruritus. No unusual bruising. Positive for change in hair or nails.right upper extremity with erythema and pain and edema Neurologic: No aphasia. No facial droop. No change in mentation. No head injury. No headache. No paralysis. No paresthesia. Psychiatric: No depression. No anxiety. No mood swings. Endocrine: No abnormal blood sugars. No weight change. PHYSICAL EXAMINATION: General: 58-year-old female sitting up in bed in mild respiratory distress. HEENT: Head is atraumatic, normocephalic, pupils were equal round reactive to light and recommendation, extraocular muscle movement were intact, sclera nonicteric, conjunctivae were pale, mucous membranes of the mouth are somewhat dry. Neck: Supple, Increased JVP, normal carotid upstroke bilaterally, no lym phadenopathy. Chest: Decreased breath sounds at the bases, few rhonchi, no expiratory wheezes, no chest wall tenderness, no intercostal retractions. Heart: First heart sound is normal, second heart sound is normal there is systolic ejection murmur 2/6 located in the left sternal border. Abdomen: Soft, nontender, nondistended, positive bowel sounds Extremities: There is +1 edema no calf tenderness DP +1 bilaterally. Right heel scab, right upper extremity with increased warmth and swelling with tenderness to palpation Neurologic examination: Patient is awake alert and oriented x3, cranial nerves II-12 appear grossly intact, muscle power were 3 out of 5 in upper extremities and 3 out of 5 in bilateral lower extremities, deep tendon reflexes normal bilaterally. ASSESSMENT AND PLAN: 1. Right upper extremity cellulitis with MRSA bacteremia. Continue Cubicin 350 mg of piggyback every 48 hours, infectious disease consultation was obtained from Dr. Subramanian, keep the arm elevated. 2. Acute on chronic systolic heart failure due to ischemic cardiomyopathy. Continue with hemodialysis as scheduled, continue patient on hydralazine 25 mg orally twice every day, monitor the patient very closely. 3. Acute on chronic kidney disease stage IIIb due to cardiorenal syndrome patient was started on hemodialysis at this time, and she is doing better. 4. Acute hypoxemic respiratory failure due to acute on chronic systolic heart failure as well as acute exacerbation of COPD. Continue DuoNeb 3 manipulation 4 times every day, continue oxygen support, continue to monitor input and output a nd daily weight. 5. Coronary artery disease status post PCI of the RCA. Continue patient on aspirin 81 mg once every day, Plavix 75 mg orally, atorvastatin 40 mg orally once every day. Cardiology consultation. 6. Hypertension and hypertensive cardiovascular disease. Continue hydralazine 25 mg orally twice every day, monitor the patient blood pressure very closely. 7. Mixed hyperlipidemia. Continue patient on atorvastatin 40 mg orally, monitor lipid panel, keep LDL 55-70. 8. Diabetes mellitus type 2. Continue patient on sliding scale insulin. 9. Restless leg syndrome. Continue ropinirole 1 mg orally at bedtime. 10. Anemia of chronic kidney disease. Continue patient on Aranesp 40 mcg subcutaneously every week. 11. Hypothyroidism. Continue levothyroxine 75 mcg orally once every day. 12. COPD exacerbation continue patient on DuoNeb 3 mm laceration 4 times every day, continue oxygen 2 L nasal cannula, 13. Chronic hypoxemic respiratory failure due to combination of nonischemic cardiomyopathy and COPD. Continue oxygen 2 L nasal cannula, continue DuoNeb 3 mm residual 4 times every day. 14. Subacute fracture of the medial and lateral malleolus currently in boot no surgical intervention is planned 15. GERD. Continue pantoprazole 40 mg once every day. 16. Medical debility. Physical therapy evaluation. 17. DVT prophylaxis. Heparin 5000 units subcutaneous every 12 hours. 18. GI prophylaxis. Continue PPI. 19. Overall prognosis is very guarded 20. Hypotension. Start the patient on midodrine 5 mg before dialysis. 21. Plan to transfer patient back to [facility] after the workup is done for MRSA bacteremia. Impression and plan of care have been directed as dictated by the signing physician. Roz Carpenter, nurse practitioner acting as scribe for signing physician. Objective - Vital Signs Vital signs: Vital Signs Temp 97.6 F 11/30/23 07:35 Pulse 70 11/30/23 07:35 Resp 16 11/30/23 07:35 BP 152/60 11/30/23 07:35 Pulse Ox 96 11/30/23 09:12 FiO2 Intake & Output 11/29/23 11/30/23 11/30/23 18:59 06:59 18:59 Intake Total 500 Output Total 4500 Balance -4000 Weight 58.2 kg 58.1 kg Intake: Hemodialysis 500 Output: Hemodialysis 2500 Hemodialysis Net Amount 2000 Other: Voiding Method Indwelling Catheter # Voids 0 # Bowel Movements 1 - Labs CBC & Chem 7: 11/30/23 08:28 11/30/23 08:28 Labs: Abnormal Lab Results - Last 24 Hours (Table) 11/29/23 11/29/23 11/29/23 Range/Units 11:23 16:43 21:19 RBC (3.80-5.40) m/uL Hgb (11.4-16.0) gm/dL Hct (34.0-46.0) % MCHC (31.0-37.0) g/dL RDW (11.5-15.5) % Lymphocytes # (1.0-4.8) k/uL Sodium (137-145) mmol/L Carbon Dioxide (22-30) mmol/L Creatinine (0.52-1.04) mg/dL Glucose (74-99) mg/dL POC Glucose (mg/dL) 198 H 144 H 213 H (70-110) mg/dL Calcium (8.4-10.2) mg/dL Alkaline Phosphatase (38-126) U/L Albumin (3.5-5.0) g/dL 11/30/23 11/30/23 11/30/23 Range/Units 06:25 08:28 08:28 RBC 3.16 L (3.80-5.40) m/uL Hgb 8.2 L (11.4-16.0) gm/dL Hct 28.4 L (34.0-46.0) % MCHC 29.0 L (31.0-37.0) g/dL RDW 16.6 H (11.5-15.5) % Lymphocytes # 0.8 L (1.0-4.8) k/uL Sodium 133 L (137-145) mmol/L Carbon Dioxide 32 H (22-30) mmol/L Creatinine 1.43 H (0.52-1.04) mg/dL Glucose 119 H (74-99) mg/dL POC Glucose (mg/dL) 111 H (70-110) mg/dL Calcium 7.8 L (8.4-10.2) mg/dL Alkaline Phosphatase 209 H (38-126) U/L Albumin 2.7 L (3.5-5.0) g/dL Microbiology - Last 24 Hours (Table) 11/26/23 10:08 Blood Culture Gram Stain - Final Blood Blood Culture - Final Methicillin resist S. aureus Molecular ID 11/28/23 05:39 Blood Culture - Preliminary Blood
--- NOTE | 2023-11-30 15:30 | P.PN ---
Subjective Progress Note Date: 11/29/23 Principal diagnosis: Reason for follow-up is MRSA bacteremia Patient is a 58-year-old female with a past medical history significant for diabetes mellitus hypertension hyperlipidemia diabetic heel ulcer and infection that seem to have healing history of end-stage renal disease on dialysis patient has been brought to the hospital for swelling patient noticed to have worsening of her kidney function did have a right IJ dialysis catheter placement, patient was noticed to have swelling to the right upper extremity previously did have a IV to the right antecubital fossa from 11/20/2023 to 11/22/2023 now with evidence of MRSA bacteremia. On today's evaluation that is 11/29/2023,the patient denies any fever or any chills, patient is breathing comfortably on room air, the patient denies chest pain shortness of breath and no significant cough, patient denies abdominal pain, no nausea vomiting or diarrhea. Overall swelling to the lower extremity has decreased in intensity. No new labs were obtained today blood culture repeated currently pending Objective - Vital Signs Vital signs: Vital Signs Temp 97.8 F 11/29/23 14:00 Pulse 60 11/29/23 14:00 Resp 15 11/29/23 14:00 BP 132/72 11/29/23 14:00 Pulse Ox 96 11/29/23 14:00 FiO2 Intake & Output 11/28/23 11/29/23 11/29/23 18:59 06:59 18:59 Weight 58.2 kg 58.2 kg Other: # Voids 1 1 # Bowel Movements 1 - Exam GENERAL DESCRIPTION: Middle-aged female up in bed in no distress RESPIRATORY SYSTEM: Unlabored breathing , decreased breath sounds at bases HEART: S1 S2 regular rate and rhythm , ABDOMEN: Soft , no tenderness EXTREMITIES: Right upper extremity did have minimal swelling compared to the left arm slightly warm but no open wound or drainage - Labs CBC & Chem 7: 11/30/23 08:28 11/30/23 08:28 Labs: Abnormal Lab Results - Last 24 Hours (Table) 11/28/23 11/29/23 11/29/23 Range/Units 20:17 06:11 11:23 POC Glucose (mg/dL) 221 H 176 H 198 H (70-110) mg/dL 11/29/23 Range/Units 16:43 POC Glucose (mg/dL) 144 H (70-110) mg/dL Microbiology - Last 24 Hours (Table) 11/26/23 10:08 Blood Culture Gram Stain - Final Blood Blood Culture - Final Methicillin resist S. aureus Molecular ID 11/28/23 05:39 Blood Culture - Preliminary Blood Assessment and Plan (1) Bacteremia due to methicillin resistant Staphylococcus aureus Current Visit: Yes Status: Acute Code(s): R78.81 - BACTEREMIA; B95.62 - ME THICILLIN RESIS STAPH INFCT CAUSING DISEASES CLASSD [id number] SNOMED Code(s): 91738196771053169 (2) Right arm cellulitis Current Visit: Yes Status: Acute Code(s): L03.113 - CELLULITIS OF RIGHT UPPER LIMB SNOMED Code(s): 13060340046717128 Plan: 1patient with MRSA bacteremia questionably to the right upper extremity cell ulitis and she was noted to have some swelling and redness to the right upper extremity on 12/27/2023 subsequent has shown improvement however the patient recently did have a permacatheter placement and there will be high clinical suspicious for secondary seeding and infection of the catheter. 2blood culture has been repeated peripherally and will be obtained today at the time of dialysis 3patient to continue with the daptomycin while waiting for the repeat culture to be finalized clinical course closely Dictation was produced using [employer] dictation software. please excuse any grammatical, word or spelling errors. Time with Patient: Less than 30
--- NOTE | 2023-11-30 15:31 | P.PN ---
Subjective Progress Note Date: 11/30/23 Principal diagnosis: Reason for follow-up is MRSA bacteremia Patient is a 58-year-old female with a past medical history significant for diabetes mellitus hypertension hyperlipidemia diabetic heel ulcer and infection that seem to have healing history of end-stage renal disease on dialysis patient has been brought to the hospital for swelling patient noticed to have worsening of her kidney function did have a right IJ dialysis catheter placement, patient was noticed to have swelling to the right upper extremity previously did have a IV to the right antecubital fossa from 11/20/2023 to 11/22/2023 now with evidence of MRSA bacteremia. On today's evaluation that is 11/30/2023,the patient remains to be afebrile, patient is on room air not requiring supplemental oxygen and denies any shortness of breath no chest pain or cough.Patient denies having any nausea or vomiting, no abdominal pain and no diarrhea has been reported, patient mention feeling better no new symptoms. The patient white count is 6.8, creatinine 1.43 with repeat so far negative Objective - Vital Signs Vital signs: Vital Signs Temp 98.0 F 11/30/23 14:00 Pulse 81 11/30/23 14:00 Resp 16 11/30/23 14:00 BP 121/74 11/30/23 14:00 Pulse Ox 96 11/30/23 14:00 FiO2 Intake & Output 11/29/23 11/30/23 11/30/23 18:59 06:59 18:59 Intake Total 500 Output Total 4500 Balance -4000 Weight 58.2 kg 58.1 kg Intake: Hemodialysis 500 Output: Hemodialysis 2500 Hemodialysis Net Amount 2000 Other: Voiding Method Indwelling Catheter # Voids 0 # Bowel Movements 1 - Exam GENERAL DESCRIPTION: Middle-aged female up in bed in no distress RESPIRATORY SYSTEM: Unlabored breathing , decreased breath sounds at bases HEART: S1 S2 regular rate and rhythm , ABDOMEN: Soft , no tenderness EXTREMITIES: Right upper extremity did have minimal swelling compared to the left arm slightly warm but no open wound or drainage - Labs CBC & Chem 7: 11/30/23 08:28 11/30/23 08:28 Labs: Abnormal Lab Results - Last 24 Hours (Table) 11/29/23 11/29/23 11/30/23 Range/Units 16:43 21:19 06:25 RBC (3.80-5.40) m/uL Hgb (11.4-16.0) gm/dL Hct (34.0-46.0) % MCHC (31.0-37.0) g/dL RDW (11.5-15.5) % Lymphocytes # (1.0-4.8) k/uL Sodium (137-145) mmol/L Carbon Dioxide (22-30) mmol/L Creatinine (0.52-1.04) mg/dL Glucose (74-99) mg/dL POC Glucose (mg/dL) 144 H 213 H 111 H (70-110) mg/dL Calcium (8.4-10.2) mg/dL Alkaline Phosphatase (38-126) U/L Albumin (3.5-5.0) g/dL 11/30/23 11/30/23 11/30/23 Range/Units 08:28 08:28 11:23 RBC 3.16 L (3.80-5.40) m/uL Hgb 8.2 L (11.4-16.0) gm/dL Hct 28.4 L (34.0-46.0) % MCHC 29.0 L (31.0-37.0) g/dL RDW 16.6 H (11.5-15.5) % Lymphocytes # 0.8 L (1.0-4.8) k/uL Sodium 133 L (137-145) mmol/L Carbon Dioxide 32 H (22-30) mmol/L Creatinine 1.43 H (0.52-1.04) mg/dL Glucose 119 H (74-99) mg/dL POC Glucose (mg/dL) 163 H (70-110) mg/dL Calcium 7.8 L (8.4-10.2) mg/dL Alkaline Phosphatase 209 H (38-126) U/L Albumin 2.7 L (3.5-5.0) g/dL Microbiology - Last 24 Hours (Table) 11/28/23 05:39 Blood Culture - Preliminary Blood 11/26/23 10:08 Blood Culture Gram Stain - Final Blood Blood Culture - Final Methicillin resist S. aureus Molecular ID Assessment and Plan (1) Bacteremia due to methicillin resistant Staphylococcus aureus Current Visit: Yes Status: Acute Code(s): R78.81 - BACTEREMIA; B95.62 - METHICILLIN RESIS STAPH INFCT CAUSING DISEASES CLASSD [facility] SNOMED Code(s): 11069301773579444 (2) Right arm cellulitis Current Visit: Yes Status: Acute Code(s): L03.113 - CELLULITIS OF RIGHT UPPER LIMB SNOMED Code(s): 41540532117390833 Plan: 1patient with MRSA bacteremia questionably to the right upper extremity cellulitis and she was noted to have some swelling and redness to the right upper extremity on 12/27/2023 subsequent has shown improvement however the patient recently did have a permacatheter placement and there will be high clinical suspicious for secondary seeding and infection of the catheter. 2blood culture has been repeated peripherally and will be obtained today at the time of dialysis 3patient to continue with the daptomycin if the repeat blood culture remains to be negative we will consider a total of 2-week course of daptomycin with the dialysis Dictation was produced using [employer] dictation software. please excuse any grammatical, word or spelling errors. Time with Patient: Less than 30
[2023-11-30 16:29] LABS: Glucose,Whole Blood 225 mg/dL (70-110)
--- NOTE | 2023-11-30 17:46 | P.PN ---
Subjective Patient is seen for follow-up for acute kidney injury, chronic kidney disease and volume overload. Patient was restarted on hemodialysis on 11/22/2023 due to poor response to Lasix drip and worsening volume overload. 10.5 L of UF since admission with hemodialysis. No shortness of breath noted. Blood cultures on 11/26/2023 are positive for MRSA Objective - Vital Signs Vital signs: Vital Signs Temp 98.0 F 11/30/23 14:00 Pulse 81 11/30/23 14:00 Resp 16 11/30/23 14:00 BP 121/74 11/30/23 14:00 Pulse Ox 96 11/30/23 14:00 FiO2 Intake & Output 11/29/23 11/30/23 11/30/23 18:59 06:59 18:59 Intake Total 500 Output Total 4500 Balance -4000 Weight 58.2 kg 58.1 kg Intake: Hemodialysis 500 Output: Hemodialysis 2500 Hemodialysis Net Amount 2000 Other: Voiding Method Indwelling Catheter # Voids 0 1 # Bowel Movements 1 - Exam patient is awake, comfortable, Examination of the heart S1 and S2 Examination of the lungs bilateral breath sounds are heard with crackles at the basesExline abdomen is soft nontender Examination of lower extremity shows edema 1+ bilaterally [employer] exam grossly intact - Labs CBC & Chem 7: 11/30/23 08:28 11/30/23 08:28 Labs: Abnormal Lab Results - Last 24 Hours (Table) 11/29/23 11/30/23 11/30/23 Range/Units 21:19 06:25 08:28 RBC 3.16 L (3.80-5.40) m/uL Hgb 8.2 L (11.4-16.0) gm/dL Hct 28.4 L (34.0-46.0) % MCHC 29.0 L (31.0-37.0) g/dL RDW 16.6 H (11.5-15.5) % Lymphocytes # 0.8 L (1.0-4.8) k/uL Sodium (137-145) mmol/L Carbon Dioxide (22-30) mmol/L Creatinine (0.52-1.04) mg/dL Glucose (74-99) mg/dL POC Glucose (mg/dL) 213 H 111 H (70-110) mg/dL Calcium (8.4-10.2) mg/dL Alkaline Phosphatase (38-126) U/L Albumin (3.5-5.0) g/dL 11/30/23 11/30/23 11/30/23 Range/Units 08:28 11:23 16:27 RBC (3.80-5.40) m/uL Hgb (11.4-16.0) gm/dL Hct (34.0-46.0) % MCHC (31.0-37.0) g/dL RDW (11.5-15.5) % Lymphocytes # (1.0-4.8) k/uL Sodium 133 L (137-145) mmol/L Carbon Dioxide 32 H (22-30) mmol/L Creatinine 1.43 H (0.52-1.04) mg/dL Glucose 119 H (74-99) mg/dL POC Glucose (mg/dL) 163 H 225 H (70-110) mg/dL Calcium 7.8 L (8.4-10.2) mg/dL Alkaline Phosphatase 209 H (38-126) U/L Albumin 2.7 L (3.5-5.0) g/dL Microbiology - Last 24 Hours (Table) 11/28/23 05:39 Blood Culture - Preliminary Blood Assessment and Plan Assessment: 1. Acute kidney injury, cardiorenal, with indwelling [place] catheter. History of hemodialysis dependent acute kidney injury which recovered. Patient did not diurese much with Lasix drip and therefore has been restarted on hemodialysis on 11/22/2023. 2. Volume overload, Improving with dialysis. 8 L of fluid removed since admission with hemodialysis. 3. Acute on chronic systolic CHF. EF is 40-45%on echocardiogram on 10/15/2023 4. History of cardiac arrest 5. Chronic kidney disease NKF stage IIIB to IV with baseline creatinine more recently around 1.9-2 mg/dL. 6. Decreased hearing. Patient has been off of Lasix drip. Hearing seems to have improved now 7. MRSA bacteremia, maintained on antibiotics. Blood cultures will be drawn today with hemodialysis. Plan: hemodialysis on Saturday schedule. Antibiotics as per ID. Accurate I's and O's continue with torsemide Continue Aranesp
--- NOTE | 2023-11-30 20:11 | P.GSCN ---
History of Present Illness History of present illness: This is a 58-year-old female with a previous medical history significant for coronary artery disease status post PCI of the RCA 2023 with ischemic cardiomyopathy, hypertension and hypertensive cardiovascular disease, hyperlipidemia, diabetes mellitus type 2 uncontrolled, chronic kidney disease stage IIIb, anemia of chronic kidney disease, history of COPD, history of severe pulmonary hypertension, history of fracture of the medial lateral malleolus, chronic wound to the right heel that has been healed, patient has been followed by me Molina Huron and she was seen yesterday on round and she was complaining of increased weight gain with increased anasarca with increased fluid in bilateral lower extremity all the way up to the thigh all the way up to the abdominal area, was complaining of increased shortness of breath, she was on 2 L nasal cannula her oxygen saturation was 99%, patient was quite anxious and frantic at the care home, she was directed to go to the emergency department for evaluation of acute and chronic systolic heart failure with worsening renal function due to cardiorenal syndrome and consultation was placed for cardiology and nephrology. Review of Systems All systems: negative Past Medical History Past Medical History: Diabetes Mellitus, Hyperlipidemia, Hypertension, Renal Disease Additional Past Medical History / Comment(s): restless leg, neurothopy, Guillain-Guthrie, dialysis History of Any Multi-Drug Resistant Organisms: None Reported Past Surgical History: Orthopedic Surgery, Tonsillectomy Additional Past Surgical History / Comment(s): "plate in left leg to straighten leg as a child" - plate removed, right total hip replacement due to a fracture from a fall, dialysis Past Anesthesia/Blood Transfusion Reactions: No Reported Reaction Past Psychological History: No Psychological Hx Reported Smoking Status: Former smoker Past Alcohol Use History: None Reported Past Drug Use History: None Reported Medications and Allergies Home Medications Medication Instructions Recorded Confirmed Type Aspirin 81 mg PO DAILY 90 Days #90 tab 06/25/23 11/21/23 Rx Clopidogrel [Plavix] 75 mg PO DAILY tab 09/27/23 11/21/23 Rx Docusate [Colace] 100 mg PO BID cap 09/27/23 11/21/23 Rx Fluticasone Nasal [place] [Flonase 2 spray EA NOSTRIL DAILY ml 09/27/23 11/21/23 Rx Nasal [place]] Folic Acid 1 mg PO DAILY tab 09/27/23 11/21/23 Rx Lidocaine 4% Patch 1 patch TOPICAL DAILY patch 09/27/23 11/21/23 Rx Melatonin 5 mg PO HS tab 09/27/23 11/21/23 Rx Thiamine [Vitamin B-1] 100 mg PO DAILY tab 09/27/23 11/21/23 Rx rOPINIRole HCL [Requip] 1 mg PO HS PRN tab 09/27/23 11/21/23 Rx Darbepoetin Frantz [Aranesp] 40 mcg SQ FR 10/09/23 11/21/23 History Ipratropium-Albuterol Nebulize 3 ml INHALATION RT-Q6H PRN 10/09/23 11/21/23 History [Duoneb 0.5 mg-3 mg/3 ml Soln] Multivitamins, Thera [Multivitamin 1 tab PO DAILY@0800 10/09/23 11/21/23 History (formulary)] Atorvastatin [Lipitor] 40 mg PO DAILY tab 10/21/23 11/21/23 Rx Calcium Acetate [PhosLo] 667 mg PO TID-W/MEALS tab 10/21/23 11/21/23 Rx Cholecalciferol [Vitamin D3 (25 25 mcg PO DAILY tab 10/21/23 11/21/23 Rx Mcg = 1000 Iu)] Dapagliflozin Propanediol [Farxiga] 10 mg PO DAILY tab 10/21/23 11/21/23 Rx Heparin Sodium,Porcine (1 ml) 5,000 unit SQ Q12HR each 10/21/23 11/21/23 Rx [Heparin Sodium] Bumetanide [Bumex] 1 mg PO TID@0500,1300,2100 11/21/23 11/21/23 History Ferrous Sulfate [Feosol] 325 mg PO BID 11/21/23 11/21/23 History HYDROcodone/APAP 5-325MG [[place] 1 tab PO Q4HR PRN 11/21/23 11/21/23 History 5-325] Insulin Lispro [humaLOG Kwikpen] See Protocol SQ ACHS@06,11,16,20 11/21/23 11/21/23 History Levothyroxine Sodium [Synthroid] 75 mcg PO DAILY@0600 11/21/23 11/21/23 History Omeprazole 20 mg PO DAILY 11/21/23 11/21/23 History hydrALAZINE HCL [Apresoline] 25 mg PO BID@0800,1600 11/21/23 11/21/23 History lisinopriL [Zestril] 2.5 mg PO DAILY@0800 11/21/23 11/21/23 History Allergies Allergy/AdvReac Type Severity Reaction Status Date / Time No Known Allergies Allergy Verified 11/20/23 20:00 Surgical - Exam Osteopathic Statement: *. No significant issues noted on an osteopathic structural exam other than those noted in the History and Physical/Consult. Vital Signs Temp Pulse Resp BP Pulse Ox 97.8 F 82 22 139/77 96 11/20/23 19:55 11/20/23 19:55 11/20/23 19:55 11/20/23 19:55 11/20/23 19:55 Gen: nad, Alert and oriented heent: epistaxis cv: rrr pul: non labored abd: soft, non tender, non distended rectal exam deffered for now Results - Labs 11/30/23 08:28 11/30/23 08:28 Abnormal Lab Results - Last 24 Hours (Table) 11/29/23 11/30/23 11/30/23 Range/Units 21:19 06:25 08:28 RBC 3.16 L (3.80-5.40) m/uL Hgb 8.2 L (11.4-16.0) gm/dL Hct 28.4 L (34.0-46.0) % MCHC 29.0 L (31.0-37.0) g/dL RDW 16.6 H (11.5-15.5) % Lymphocytes # 0.8 L (1.0-4.8) k/uL Sodium (137-145) mmol/L Carbon Dioxide (22-30) mmol/L Creatinine (0.52-1.04) mg/dL Glucose (74-99) mg/dL POC Glucose (mg/dL) 213 H 111 H (70-110) mg/dL Calcium (8.4-10.2) mg/dL Alkaline Phosphatase (38-126) U/L Albumin (3.5-5.0) g/dL 11/30/23 11/30/23 11/30/23 Range/Units 08:28 11:23 16:27 RBC (3.80-5.40) m/uL Hgb (11.4-16.0) gm/dL Hct (34.0-46.0) % MCHC (31.0-37.0) g/dL RDW (11.5-15.5) % Lymphocytes # (1.0-4.8) k/uL Sodium 133 L (137-145) mmol/L Carbon Dioxide 32 H (22-30) mmol/L Creatinine 1.43 H (0.52-1.04) mg/dL Glucose 119 H (74-99) mg/dL POC Glucose (mg/dL) 163 H 225 H (70-110) mg/dL Calcium 7.8 L (8.4-10.2) mg/dL Alkaline Phosphatase 209 H (38-126) U/L Albumin 2.7 L (3.5-5.0) g/dL Microbiology - Last 24 Hours (Table) 11/28/23 05:39 Blood Culture - Preliminary Blood Diabetes panel 11/30/23 Range/Units 08:28 Sodium 133 L (137-145) mmol/L Potassium 3.8 (3.5-5.1) mmol/L Chloride 100 (98-107) mmol/L Carbon Dioxide 32 H (22-30) mmol/L BUN 16 (7-17) mg/dL Creatinine 1.43 H (0.52-1.04) mg/dL Glucose 119 H (74-99) mg/dL Calcium 7.8 L (8.4-10.2) mg/dL AST 28 (14-36) U/L ALT <6 (4-34) U/L Alkaline Phosphatase 209 H (38-126) U/L Total Protein 6.5 (6.3-8.2) g/dL Albumin 2.7 L (3.5-5.0) g/dL Calcium panel 11/30/23 Range/Units 08:28 Calcium 7.8 L (8.4-10.2) mg/dL Albumin 2.7 L (3.5-5.0) g/dL Pituitary panel 11/30/23 Range/Units 08:28 Sodium 133 L (137-145) mmol/L Potassium 3.8 (3.5-5.1) mmol/L Chloride 100 (98-107) mmol/L Carbon Dioxide 32 H (22-30) mmol/L BUN 16 (7-17) mg/dL Creatinine 1.43 H (0.52-1.04) mg/dL Glucose 119 H (74-99) mg/dL Calcium 7.8 L (8.4-10.2) mg/dL Adrenal panel 11/30/23 Range/Units 08:28 Sodium 133 L (137-145) mmol/L Potassium 3.8 (3.5-5.1) mmol/L Chloride 100 (98-107) mmol/L Carbon Dioxide 32 H (22-30) mmol/L BUN 16 (7-17) mg/dL Creatinine 1.43 H (0.52-1.04) mg/dL Glucose 119 H (74-99) mg/dL Calcium 7.8 L (8.4-10.2) mg/dL Total Bilirubin 0.4 (0.2-1.3) mg/dL AST 28 (14-36) U/L ALT <6 (4-34) U/L Alkaline Phosphatase 209 H (38-126) U/L Total Protein 6.5 (6.3-8.2) g/dL Albumin 2.7 L (3.5-5.0) g/dL Assessment and Plan Assessment: 58 yo female w/ rectal prolaspe -currently asymptomatic -spontaneously reduces -no signs of obstruction -chronic in nature -outpatient work up Time with Patient: Greater than 30
[2023-11-30 23:21] LABS: Glucose,Whole Blood 268 mg/dL (70-110)
[2023-12-01 07:51] LABS: Glucose,Whole Blood 169 mg/dL (70-110)
[2023-12-01 09:37] LABS: Basophils # (A) 0.06 X 10*3/uL (0.00-0.10); Basophils % (A) 0.7 %; Eosinophils # (A) 0.17 X 10*3/uL (0.04-0.35); Eosinophils % (A) 2.1 %; HCT 26.4 % (37.2-46.3); HGB 7.7 g/dL (12.0-15.0); Lymphocytes # (A) 0.86 X 10*3/uL (0.90-5.00); Lymphocytes % (A) 10.7 %; MCHC 29.2 g/dL (32.0-37.0); MCV 89.2 FL (80.0-97.0); Mean Platelet Volume 11.1 FL (9.5-12.2); Monocytes # (A) 0.97 X 10*3/uL (0.20-1.00); Monocytes % (A) 12.1 %; NRBC Per 100 WBC 0 X 10*3/uL (0.00-0.01); Neutrophils # (A) 5.78 X 10*3/uL (1.80-7.70); Neutrophils % (A) 72.3 %; Platelet Count 211 X 10*3/uL (140-440); RBC 2.96 X 10*6/uL (4.10-5.20); RDW 17.2 % (11.5-14.5); WBC 8.01 X 10*3/uL (4.50-10.00)
[2023-12-01 09:40] LABS: ALT <5 U/L (8-44); AST 19 U/L (13-35); Albumin 2.8 g/dL (3.8-4.9); Albumin/Globulin Ratio 0.78 Ratio (1.60-3.17); Alkaline Phosphatase 208 U/L (41-126); BUN/Creat Ratio 12.44 Ratio (12.00-20.00); Blood Urea Nitrogen 22.4 mg/dL (9.0-27.0); Calcium 7.9 mg/dL (8.7-10.3); Carbon Dioxide 29.9 mmol/L (21.6-31.8); Chloride 97 mmol/L (96-109); Globulin 3.6 g/dL (1.6-3.3); Glucose 142 mg/dL (70-110); Potassium 3.8 mmol/L (3.5-5.5); Sodium 135 mmol/L (135-145); Total Bilirubin 0.3 mg/dL (0.3-1.2); Total Protein 6.4 g/dL (6.2-8.2)
--- NOTE | 2023-12-01 10:46 | P.PN ---
Subjective Progress Note Date: 12/01/23 This is a 58-year-old female patient with a known history of chronic kidney disease with previous temporary hemodialysis, chronic anemia, coronary artery disease with previous stent to the RCA, previous cardiac arrest, nonhealing right heel pressure wound, hypertension, hyperlipidemia, diabetes mellitus, severe pulmonary hypertension, COPD, former smoker congestive heart failure. She presented here to the emergency room yesterday with complaints of increasing shortness of breath and swelling all over. Chest x-ray reviewed with hazy appearance representing atelectasis versus pulmonary edema. White count 0.9. Platelets 167. Sodium 138. Potassium 5.1. Bicarb 24. BUN 57. Creatinine 2.5. Glucose 127. proBNP 33,100. She is seen today in consultation on the regular medical floor. She is currently sitting up in a chair at the bedside. Awake and alert in no acute distress. Somewhat of a poor historian. She is maintaining good O2 saturations in the 90s on 2 L/min per nasal cannula. She is afebrile. Hemodynamically stable. The patient is seen today November 22, 2023 in follow-up on the regular medical floor. She is currently sitting up in a chair at the bedside. Awake and alert in no acute distress. Breathing a bit easier today compared to yesterday. She is maintaining O2 saturations in the 90s on 2 L/min per nasal cannula. She is afebrile. Hemodynamically stable. Follow-up chest x-ray shows mild improvement in the pulmonary venous congestion. Bilateral infiltrates and small effusions stable. She remains on a Lasix drip at 10 mg/h. White count 11.9. Hemoglobin 7.9. Platelets 182. Sodium 138. Potassium 5.7. Bicarb 25. BUN 58. Creatinine 2.7. Glucose 115. She remains on DuoNeb inhalations. Heparin for DVT prophylaxis. The patient is seen today November 23, 2023 in follow-up on the regular medical floor. She is currently sitting up in bed. Awake and alert in no acute distress. Maintaining O2 saturations in the 90s on 2 L/min per nasal cannula. She did have a permacath placed yesterday. She did receive hemodialysis with 2 L of fluid removed. Plan is for dialysis again today. White count 8.9. Hemoglobin 8.0. Platelets 169. Glucose 155. She remains on a Lasix drip at 10 mg/h. Heparin for DVT prophylaxis. Continued on bronchodilators. The patient is seen today November 24, 2023 in follow-up on the regular medical floor. She is currently resting comfortably in bed. Awake and alert in no acute distress. She is maintaining O2 saturations in the 90s on 2 L/min per nasal cannula. She remains on bronchodilators. Heparin for DVT prophylaxis. She is continued on hemodialysis with another 3 L of fluid removed today. Glucose 119. The patient is seen today November 25, 2023 in follow-up on the regular medical floor. She is up in a chair at the bedside. Awake and alert in no acute distress. Maintaining O2 saturations in the upper 90s on 2 L/min per nasal cannula. Afebrile. Hemodynamically stable. Glucose 115. She remains on [facility] hodilators. Heparin for DVT prophylaxis. Plan is for hemodialysis again today. The patient is seen today November 26, 2023 in follow-up on the regular medical floor. She is currently up in a chair. Maintaining good O2 saturations in the 90s on room air. Feeling better. Doppler of the right upper extremity ruled out DVT. There is some edema. White count 10.8. Hemoglobin 7.8. Platelets 196. Sodium 136. Potassium 4.0. Bicarb 27. BUN 14. Creatinine 1.7. Glucose 98. She is on heparin for DVT prophylaxis. Remains on bronchodilators. Initiated on cefazolin. The patient is seen today November 28, 2023 in follow-up on the regular medical floor. She is resting in bed. Awake and alert in no acute distress. Continues to maintain good O2 saturations in the 90s on room air. Occasionally uses 2 L of oxygen if short of breath. White count 7.1. Hemoglobin 8.1. Platelets 204. Sodium 136. Potassium 3.7. Bicarb 28. BUN 14. Creatinine 1.9. Glucose 97. Cultures revealing presumptive MRSA. She is currently on daptomycin. Heparin for DVT prophylaxis. Bronchodilators as needed. The patient is seen today November 29, 2023 in follow-up on the regular medical floor. She is currently sitting up in a chair. Awake and alert in no acute distress. Maintaining good O2 saturations in the 90s on room air. Been afebrile. Hemodynamically stable. Is for hemodialysis today as she is on a Saturday schedule now. Blood cultures are positive for MRSA. Follow-up blood culture pending. Glucose 198. She remains on daptomycin. The patient is seen today November 30, 2023 in follow-up on the regular medical floor. She is sitting up at the bedside. Awake and alert in no acute distress. Maintaining O2 saturations in the 90s on room air. White count 6.9. Hemoglobin 8.2 platelets 238. Sodium 133. Potassium 3.8. Bicarb 32. BUN 16. Creatinine 1.43. Glucose 119. She remains on DuoNeb inhalations as needed. Heparin for DVT prophylaxis. Continued on daptomycin. The patient is seen today December 01, 2023 in follow-up on the regular medical floor. She is currently up in a chair. Awake and alert in no acute distress. Maintaining good O2 saturations in the 90s on room air. Denies any worsening shortness of breath, cough or congestion. Blood cultures are positive for MRSA. Follow-up cultures pending. Count 8.0. Hemoglobin 7.7. Platelets 211. Sodi um 135. Potassium 3.8. Bicarb 30. BUN 22. Creatinine 1.8. Glucose 142. She remains on daptomycin. Heparin for DVT prophylaxis. Objective - Vital Signs Vital signs: Vital Signs Temp 97.6 F 12/01/23 06:53 Pulse 78 12/01/23 06:53 Resp 16 12/01/23 06:53 BP 144/81 12/01/23 06:53 Pulse Ox 94 L 12/01/23 06:53 FiO2 Intake & Output 11/30/23 12/01/23 12/01/23 18:59 06:59 18:59 Intake Total 360 Balance 360 Weight 50.5 kg Intake: Other 360 Other: # Voids 1 2 - Exam GENERAL EXAM: Alert, very pleasant 58-year-old female, up in a chair, on room air, in no apparent distress. HEAD: Normocephalic. EYES: Normal reaction of pupils, equal size. NOSE: Clear with pink turbinates. THROAT: No erythema or exudates. NECK: No masses, no JVD. CHEST: No chest wall deformity. Right internal jugular HemoCath in place LUNGS: Equal air entry with crackles in the bilateral bases. CVS: S1 and S2 normal with no audible murmur, regular rhythm. ABDOMEN: No hepatosplenomegaly, normal bowel sounds, no guarding or rigidity. SPINE: No scoliosis or deformity SKIN: No rashes CENTRAL NERVOUS SYSTEM: No focal deficits, tone is normal in all 4 extremities. EXTREMITIES: There is 1-2+ peripheral edema. Right lower extremity in a hard boot. Peripheral pulses are intact. - Labs CBC & Chem 7: 12/01/23 05:53 12/01/23 05:53 Labs: Abnormal Lab Results - Last 24 Hours (Table) 11/30/23 11/30/23 11/30/23 Range/Units 11:23 16:27 23:16 RBC (4.10-5.20) X 10*6/uL Hgb (12.0-15.0) g/dL Hct (37.2-46.3) % MCH (27.0-32.0) pg MCHC (32.0-37.0) g/dL RDW (11.5-14.5) % Immature Gran # (0.00-0.04) X 10*3/uL Lymphocytes # (0.90-5.00) X 10*3/uL Creatinine (0.6-1.5) mg/dL Est GFR (CKD-EPI) (>=60) Glucose (70-110) mg/dL POC Glucose (mg/dL) 163 H 225 H 268 H (70-110) mg/dL Calcium (8.7-10.3) mg/dL ALT (8-44) U/L Alkaline Phosphatase (41-126) U/L Albumin (3.8-4.9) g/dL Globulin (1.6-3.3) g/dL Albumin/Globulin Ratio (1.60-3.17) Ratio 12/01/23 12/01/23 12/01/23 Range/Units 05:53 05:53 07:49 RBC 2.96 L (4.10-5.20) X 10*6/uL Hgb 7.7 L (12.0-15.0) g/dL Hct 26.4 L (37.2-46.3) % MCH 26.0 L (27.0-32.0) pg MCHC 29.2 L (32.0-37.0) g/dL RDW 17.2 H (11.5-14.5) % Immature Gran # 0.17 H (0.00-0.04) X 10*3/uL Lymphocytes # 0.86 L (0.90-5.00) X 10*3/uL Creatinine 1.8 H (0.6-1.5) mg/dL Est GFR (CKD-EPI) 32 L (>=60) Glucose 142 H (70-110) mg/dL POC Glucose (mg/dL) 169 H (70-110) mg/dL Calcium 7.9 L (8.7-10.3) mg/dL ALT <5 L (8-44) U/L Alkaline Phosphatase 208 H (41-126) U/L Albumin 2.8 L (3.8-4.9) g/dL Globulin 3.6 H (1.6-3.3) g/dL Albumin/Globulin Ratio 0.78 L (1.60-3.17) Ratio Microbiology - Last 24 Hours (Table) 11/28/23 05:39 Blood Culture Gram Stain - Preliminary Blood Blood Culture - Preliminary Molecular ID 11/29/23 13:51 Blood Culture - Preliminary Blood Assessment and Plan Assessment: Acute hypoxic respiratory failure secondary to an acute exacerbation of diastolic congestive heart failure, recovered and on room air Bacteremia secondary to MRSA Chronic anemia Chronic kidney disease with previous hemodialysis and now hemodialysis resumed again 11/22/2023. On a Saturday schedule Coronary artery disease with previous stenting Pulmonary hypertension Hypertension Hyperlipidemia Diabetes mellitus Chronic wounds of the lower extremities more so on the right heel Previous cardiac arrest with extended stay in the intensive care unit in July 2023 History of complete rectal prolapse with previous attempts to replace Chronic obstructive pulmonary disease Former smoker History of previous urinary tract infections with E. coli and Proteus Rectal prolapse, no signs of obstruction Plan: The patient was seen and evaluated Labs and medications reviewed Remains stable and on room air Currently on daptomycin per ID service Follow-up blood cultures pending Plan is for [facility] with hemodialysis at [facility] upon discharge I have personally seen and examined the patient, performed the documentation and the assessment and plan as written. Number of minutes spent on the visit: 10.
[2023-12-01 11:27] LABS: Glucose,Whole Blood 120 mg/dL (70-110)
--- NOTE | 2023-12-01 11:36 | P.PN ---
Subjective Progress Note Date: 12/01/23 Principal diagnosis: Rectal prolapse We were consulted to see this patient for her rectal prolapse again. Patient says it does not bother her much. She previously was considered for operative intervention but was never cleared by consultants given the multiple comorbidities. Tolerating diet. Loose stools at times. Objective - Vital Signs Vital signs: Vital Signs Temp 97.6 F 12/01/23 06:53 Pulse 78 12/01/23 06:53 Resp 16 12/01/23 06:53 BP 144/81 12/01/23 06:53 Pulse Ox 94 L 12/01/23 06:53 FiO2 Intake & Output 11/30/23 12/01/23 12/01/23 18:59 06:59 18:59 Intake Total 360 Balance 360 Weight 50.5 kg Intake: Other 360 Other: Voiding Method Diaper # Voids 1 2 - Exam Abdomen: Soft, nontender, nondistended Rectal: Small 1.5 cm rectal prolapse easily reduced, mucosa viable - Labs CBC & Chem 7: 12/01/23 05:53 12/01/23 05:53 Labs: Abnormal Lab Results - Last 24 Hours (Table) 11/30/23 11/30/23 12/01/23 Range/Units 16:27 23:16 05:53 RBC 2.96 L (4.10-5.20) X 10*6/uL Hgb 7.7 L (12.0-15.0) g/dL Hct 26.4 L (37.2-46.3) % MCH 26.0 L (27.0-32.0) pg MCHC 29.2 L (32.0-37.0) g/dL RDW 17.2 H (11.5-14.5) % Immature Gran # 0.17 H (0.00-0.04) X 10*3/uL Lymphocytes # 0.86 L (0.90-5.00) X 10*3/uL Creatinine (0.6-1.5) mg/dL Est GFR (CKD-EPI) (>=60) Glucose (70-110) mg/dL POC Glucose (mg/dL) 225 H 268 H (70-110) mg/dL Calcium (8.7-10.3) mg/dL ALT (8-44) U/L Alkaline Phosphatase (41-126) U/L Albumin (3.8-4.9) g/dL Globulin (1.6-3.3) g/dL Albumin/Globulin Ratio (1.60-3.17) Ratio 12/01/23 12/01/23 12/01/23 Range/Units 05:53 07:49 11:25 RBC (4.10-5.20) X 10*6/uL Hgb (12.0-15.0) g/dL Hct (37.2-46.3) % MCH (27.0-32.0) pg MCHC (32.0-37.0) g/dL RDW (11.5-14.5) % Immature Gran # (0.00-0.04) X 10*3/uL Lymphocytes # (0.90-5.00) X 10*3/uL Creatinine 1.8 H (0.6-1.5) mg/dL Est GFR (CKD-EPI) 32 L (>=60) Glucose 142 H (70-110) mg/dL POC Glucose (mg/dL) 169 H 120 H (70-110) mg/dL Calcium 7.9 L (8.7-10.3) mg/dL ALT <5 L (8-44) U/L Alkaline Phosphatase 208 H (41-126) U/L Albumin 2.8 L (3.8-4.9) g/dL Globulin 3.6 H (1.6-3.3) g/dL Albumin/Globulin Ratio 0.78 L (1.60-3.17) Ratio Microbiology - Last 24 Hours (Table) 11/28/23 05:39 Blood Culture Gram Stain - Preliminary Blood Blood Culture - Preliminary Molecular ID 11/29/23 13:51 Blood Culture - Preliminary Blood Assessment and Plan (1) Rectal prolapse Narrative/Plan: 58-year-old female with rectal prolapse. This appears mild in nature at this time and minimally symptomatic. No surgical intervention planned at this time. Follow-up as outpatient with Dr. Marlow to reconsider surgical options. Will sign off. Please call if needed. Current Visit: No Status: Acute Code(s): K62.3 - RECTAL PROLAPSE SNOMED Code(s): 28349615
--- NOTE | 2023-12-01 12:51 | P.PN ---
Subjective Patient is seen for follow-up for acute kidney injury, chronic kidney disease and volume overload. Patient was restarted on hemodialysis on 11/22/2023 due to poor response to Lasix drip and worsening volume overload. 10.5 L of UF since admission with hemodialysis. No shortness of breath noted. Blood cultures on 11/26/2023 are positive for MRSA. Maintained on daptomycin Objective - Vital Signs Vital signs: Vital Signs Temp 97.6 F 12/01/23 06:53 Pulse 78 12/01/23 06:53 Resp 16 12/01/23 06:53 BP 144/81 12/01/23 06:53 Pulse Ox 94 L 12/01/23 06:53 FiO2 Intake & Output 11/30/23 12/01/23 12/01/23 18:59 06:59 18:59 Intake Total 360 Balance 360 Weight 50.5 kg Intake: Other 360 Other: Voiding Method Diaper # Voids 1 2 # Bowel Movements 1 - Exam patient is awake, comfortable, Examination of the heart S1 and S2 Examination of the lungs bilateral breath sounds are heard with crackles at the basesExline abdomen is soft nontender Examination of lower extremity shows edema 1+ bilaterally [employer] exam grossly intact - Labs CBC & Chem 7: 12/01/23 05:53 12/01/23 05:53 Labs: Abnormal Lab Results - Last 24 Hours (Table) 11/30/23 11/30/23 12/01/23 Range/Units 16:27 23:16 05:53 RBC 2.96 L (4.10-5.20) X 10*6/uL Hgb 7.7 L (12.0-15.0) g/dL Hct 26.4 L (37.2-46.3) % MCH 26.0 L (27.0-32.0) pg MCHC 29.2 L (32.0-37.0) g/dL RDW 17.2 H (11.5-14.5) % Immature Gran # 0.17 H (0.00-0.04) X 10*3/uL Lymphocytes # 0.86 L (0.90-5.00) X 10*3/uL Creatinine (0.6-1.5) mg/dL Est GFR (CKD-EPI) (>=60) Glucose (70-110) mg/dL POC Glucose (mg/dL) 225 H 268 H (70-110) mg/dL Calcium (8.7-10.3) mg/dL ALT (8-44) U/L Alkaline Phosphatase (41-126) U/L Albumin (3.8-4.9) g/dL Globulin (1.6-3.3) g/dL Albumin/Globulin Ratio (1.60-3.17) Ratio 12/01/23 12/01/23 12/01/23 Range/Units 05:53 07:49 11:25 RBC (4.10-5.20) X 10*6/uL Hgb (12.0-15.0) g/dL Hct (37.2-46.3) % MCH (27.0-32.0) pg MCHC (32.0-37.0) g/dL RDW (11.5-14.5) % Immature Gran # (0.00-0.04) X 10*3/uL Lymphocytes # (0.90-5.00) X 10*3/uL Creatinine 1.8 H (0.6-1.5) mg/dL Est GFR (CKD-EPI) 32 L (>=60) Glucose 142 H (70-110) mg/dL POC Glucose (mg/dL) 169 H 120 H (70-110) mg/dL Calcium 7.9 L (8.7-10.3) mg/dL ALT <5 L (8-44) U/L Alkaline Phosphatase 208 H (41-126) U/L Albumin 2.8 L (3.8-4.9) g/dL Globulin 3.6 H (1.6-3.3) g/dL Albumin/Globulin Ratio 0.78 L (1.60-3.17) Ratio Microbiology - Last 24 Hours (Table) 11/28/23 05:39 Blood Culture Gram Stain - Preliminary Blood Blood Culture - Preliminary Molecular ID 11/29/23 13:51 Blood Culture - Preliminary Blood Assessment and Plan Assessment: 1. Acute kidney injury, cardiorenal, with indwelling [place] catheter. History of hemodialysis dependent acute kidney injury which recovered. Patient did not diurese much with Lasix drip and therefore has been restarted on hemodialysis on 11/22/2023. 2. Volume overload, Improving with dialysis. 8 L of fluid removed since admission with hemodialysis. 3. Acute on chronic systolic CHF. EF is 40-45%on echocardiogram on 10/15/2023 4. History of cardiac arrest 5. Chronic kidney disease NKF stage IIIB to IV with baseline creatinine more recently around 1.9-2 mg/dL. 6. Decreased hearing. Patient has been off of Lasix drip. Hearing seems to have improved now 7. MRSA bacteremia, maintained on antibiotics. Blood cultures drawn with hemodialysis are negative thus far. Plan: hemodialysis on Saturday schedule. Antibiotics as per ID. Accurate I's and O's continue with torsemide Continue Aranesp
--- NOTE | 2023-12-01 15:45 | P.PN ---
Subjective Progress Note Date: 12/01/23 HISTORY OF PRESENT ILLNESS: This is a 58-year-old female with a previous medical history signif icant for coronary artery disease status post PCI of the RCA 2023 with ischemic cardiomyopathy, hypertension and hypertensive cardiovascular disease, hyperlipidemia, diabetes mellitus type 2 uncontrolled, chronic kidney disease stage IIIb, anemia of chronic kidney disease, history of COPD, history of severe pulmonary hypertension, history of fracture of the medial lateral malleolus, chronic wound to the right heel that has been healed, patient has been followed by ma Tracy Morris and she was seen yesterday on round and she was complaining of increased weight gain with increased anasarca with increased fluid in bilateral lower extremity all the way up to the thigh all the way up to the abdominal area, was complaining of increased shortness of breath, she was on 2 L nasal cannula her oxygen saturation was 99%, patient was quite anxious and frantic at the correction, she was directed to go to the emergency department for evaluation of acute and chronic systolic heart failure with worsening renal function due to cardiorenal syndrome and consultation was placed for cardiology and nephrology. 11/21: Patient is seen today in follow-up. She has had a dialysis catheter placed today by Dr. Dale. She remains on Lasix drip per nephrology. Extremity and abdominal edema are improving, patient appears to be better today, she has been been started on Solu-Medrol 60 mg IV push every 8 hours yesterday along with nebulized treatment, continue oxygen support, pulmonary evaluation is appreciated, continue to monitor the patient input and output and daily weight, she is less anxious today as she was started on Xanax yesterday as needed, I believe the nephrology is planning for the patient to go for hemodialysis permacatheter was placed by Dr. Dale early in the right internal jugular vein. I will follow-up with the patient very closely. Her prognosis continue to be guarded her daughter and her granddaughter and they were updated yesterday and they were aware that the patient may go for dialysis at this point. 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 Labs reviewed and looks improving leukocytosis, hemoglobin stable at 8.0 creatinine 2.3 and potassium 5.8 Lisinopril remains on hold 11/23 Patient awake alert No back pain She is getting hemodialysis Complains from pain all over her body 11/24: Patient sitting up in chair getting ready to get her hemodialysis for the permacatheter is complaining of a lot of pain all over her body, she has been getting Sumner by mouth, she is asking for her morphine sulfate she will be given 2 mg IV push at this time for further control of her pain prior to her hemodialysis, patient appears to be somewhat emotional at this time, she appears a lot better since she was started on dialysis, she is not as edematous as she was before, she continues to have some edema both lower extremities not this bad she appears to have some edema in the right upper extremity we will continue to monitor very closely. Continue current treatment plan, the plan is to transfer the patient back to [facility] when she has a slot for outpatient dialysis. 11/25: Patient sitting up in bed in no apparent distress, she is complaining of increased pain and swelling of the right upper extremity, she continues to have minimal shortness of breath, she continues to have some swelling both lower extremities, she did have dialysis yesterday, will are going to order a venous Doppler of the right upper extremity rule out any deep venous thrombosis, we will start the patient on K-pad's, start the patient on IV antibiotic in the form of cefazolin 2 g IV piggyback every 12 hours, I will obtain blood cultures prior to the antibiotic, we will monitor the patient very closely, await the final result of the ultrasound and we will see how the patient progress over the next 1 or 2 days as far as the swelling of the right upper extremity. 11/26: Patient is laying down in bed does not appear to be in acute distress, she appears to be significantly drowsy, yet she is asking for pain management, we will discontinue morphine completely, continue patient on Sumner as needed, monitor the patient's symptoms very closely, patient blood culture showed evidence of MRSA, switch to Cubicin 350 mg of piggyback every 48 hours, infectious disease consultation was obtained, patient did have recent permacatheter placement for hemodialysis, will continue to follow-up with the patient very closely, her right arm appears to be better, venous Doppler did not show evidence of acute DVT, I will follow-up with the patient very closely. The plan is for the patient to be transferred back to [facility] she already had assignment for hemodialysis as an outpatient in [place]. 11/27: Patient sitting up in bed in no apparent distress, she is more awake and more alert today, she denies any fever or chills, she did receive dialysis yesterday, she has no abdominal pain, nausea vomiting or diarrhea, she was seen in consultation by infectious disease due to MRSA bacteremia, continue patient on daptomycin 350 mg IV piggyback every 48 hours, monitor the patient very closely, echocardiogram was ordered results still pending at the time of dictation, workup for bacteremia still ongoing, likely the patient will be able to discharge hopefully in the next 24 hours back to [facility]. 11/28: Patient sitting up in chair at this time, seems a bit tired today. Patient denies any fever or chills. Patient denies chest pain, shortness of breath, nausea vomiting or diarrhea. Repeat blood culture preliminary report shows no growth. Patient currently on a Saturday dialysis schedule. Continue patient on daptomycin 350 mg IV piggyback every 48 hours. Patient will hopefully be discharged back to [facility] tomorrow. 11/29: Patient sitting up in bed in no apparent distress. She is more alert today than yesterday. Patient denies any fever or chills, denies chest pain or shortness of breath. Patient still complaining of pain. We increased her hydrocodoneacetaminophen from 5325 to 7.5-325 mg once every 4 hours as needed. Final blood culture still pending, continue daptomycin 300 IV piggyback every 48 hours. Patient to receive dialysis next on Saturday. Also awaiting infectious disease recommendation prior to discharge back to [facility]. 11/30: Patient sitting up in chair, no acute distress. Patient doing well but still complaining of pain. Pain meds were increased yesterday. Continue daptomycin 300 mg IV piggyback every 48 hours. Patient will likely be discharged back to [facility] to continue daptomycin IV with dialysis. Final blood culture is still pending. General surgery was consulted for a rectal prolapse that was easily reduced. We will continue to follow closely with recommendations from nephrology and ID. Repeat labs tomorrow morning. REVIEW OF SYSTEMS: Constitutional: No documented fever, no chills, no night sweats. No weight change. Positive for generalized weakness, fatigue or lethargy. She states she is feeling much better today she continues to have shortness of breath but improved. No daytime sleepiness. EENT: No headache. No blurred vision or double vision, no loss of vision. No loss of Hearing, no ringing in the ears, no dizziness. No nasal drainage or congestion. No epistaxis. No sore throat. Lungs: Positive for less shortness of breath, no cough, no sputum production. No wheezing. Reports dyspnea with activity. Cardiovascular: No chest pain, no lower extremity edema. No palpitations. No p aroxysmal nocturnal dyspnea. No orthopnea. No lightheadedness or dizziness. No syncopal episodes. Abdominal: Reports abdominal pain. No nausea, vomiting. No diarrhea. No constipation. No bloody or tarry stools reports loss of appetite. Genitourinary: No dysuria, increased frequency, urgency. No urinary retention. Musculoskeletal: No myalgias. No muscle weakness, positive for gait dysfunct ion, positive for frequent falls. Positive for back pain and neck pain. Integumentary: Right heel scab, no lesions. No rash or pruritus. No unusual bruising. Positive for change in hair or nails.right upper extremity with erythema and pain and edema Neurologic: No aphasia. No facial droop. No change in mentation. No head injury. No headache. No paralysis. No paresthesia. Psychiatric: No depression. No anxiety. No mood swings. Endocrine: No abnormal blood sugars. No weight change. PHYSICAL EXAMINATION: General: 58-year-old female sitting up in bed in mild respiratory distress. HEENT: Head is atraumatic, normocephalic, pupils were equal round reactive to light and recommendation, extraocular muscle movement were intact, sclera nonicteric, conjunctivae were pale, mucous membranes of the mouth are somewhat dry. Neck: Supple, Increased JVP, normal carotid upstroke bilaterally, no lymphadenopathy. Chest: Decreased breath sounds at the bases, few rhonchi, no expiratory wheezes, no chest wall tenderness, no intercostal retractions. Heart: First heart sound is normal, second heart sound is normal there is systolic ejection murmur 2/6 located in the left sternal border. Abdomen: Soft, nontender, nondistended, positive bowel sounds Extremities: There is +1 edema no calf tenderness DP +1 bilaterally. Right heel scab, right upper extremity with increased warmth and swelling with tenderness to palpation Neurologic examination: Patient is awake alert and oriented x3, cranial nerves II-12 appear grossly intact, muscle power were 3 out of 5 in upper extremities a nd 3 out of 5 in bilateral lower extremities, deep tendon reflexes normal bilaterally. ASSESSMENT AND PLAN: 1. Right upper extremity cellulitis with MRSA bacteremia. Continue Cubicin 350 mg of piggyback every 48 hours, infectious disease consultation was obtained from Dr. Subramanian, keep the arm elevated. 2. Acute on chronic systolic heart failure due to ischemic cardiomyopathy. Continue with hemodialysis as scheduled, continue patient on hydralazine 25 mg orally twice every day, monitor the patient very closely. 3. Acute on chronic kidney disease stage IIIb due to cardiorenal syndrome ayesha chen was started on hemodialysis at this time, and she is doing better. 4. Acute hypoxemic respiratory failure due to acute on chronic systolic heart failure as well as acute exacerbation of COPD. Continue DuoNeb 3 manipulation 4 times every day, continue oxygen support, continue to monitor input and output and daily weight. 5. Coronary artery disease status post PCI of the RCA. Continue patient on aspirin 81 mg once every day, Plavix 75 mg orally, atorvastatin 40 mg orally once every day. Cardiology consultation. 6. Hypertension and hypertensive cardiovascular disease. Continue hydralazine 25 mg orally twice every day, monitor the patient blood pressure very closely. 7. Mixed hyperlipidemia. Continue patient on atorvastatin 40 mg orally, monitor lipid panel, keep LDL 55-70. 8. Diabetes mellitus type 2. Continue patient on sliding scale insulin. 9. Restless leg syndrome. Continue ropinirole 1 mg orally at bedtime. 10. Anemia of chronic kidney disease. Continue patient on Aranesp 40 mcg subcutaneously every week. 11. Hypothyroidism. Continue levothyroxine 75 mcg orally once every day. 12. COPD exacerbation continue patient on DuoNeb 3 mm laceration 4 times every day, continue oxygen 2 L nasal cannula, 13. Chronic hypoxemic respiratory failure due to combination of nonischemic cardiomyopathy and COPD. Continue oxygen 2 L nasal cannula, continue DuoNeb 3 mm residual 4 times every day. 14. Subacute fracture of the medial and lateral malleolus currently in boot no surgical intervention is planned. 15. GERD. Continue pantoprazole 40 mg once every day. 16. Medical debility. Physical therapy evaluation. 17. DVT prophylaxis. Heparin 5000 units subcutaneous every 12 hours. 18. GI prophylaxis. Continue PPI. 19. Overall prognosis is very guarded 20. Hypotension. Start the patient on midodrine 5 mg before dialysis. 21. Plan to transfer patient back to [facility] after the workup is done for MRSA bacteremia. Impression and plan of care have been directed as dictated by the signing physician. Roz Carpenter, nurse practitioner acting as scribe for signing physician. Objective - Vital Signs Vital signs: Vital Signs Temp 97.6 F 12/01/23 06:53 Pulse 78 12/01/23 06:53 Resp 16 12/01/23 06:53 BP 144/81 12/01/23 06:53 Pulse Ox 94 L 12/01/23 06:53 FiO2 Intake & Output 11/30/23 12/01/23 12/01/23 18:59 06:59 18:59 Intake Total 360 Balance 360 Weight 50.5 kg Intake: Other 360 Other: Voiding Method Diaper # Voids 1 2 # Bowel Movements 1 - Labs CBC & Chem 7: 12/01/23 05:53 12/01/23 05:53 Labs: Abnormal Lab Results - Last 24 Hours (Table) 11/30/23 11/30/23 12/01/23 Range/Units 16:27 23:16 05:53 RBC 2.96 L (4.10-5.20) X 10*6/uL Hgb 7.7 L (12.0-15.0) g/dL Hct 26.4 L (37.2-46.3) % MCH 26.0 L (27.0-32.0) pg MCHC 29.2 L (32.0-37.0) g/dL RDW 17.2 H (11.5-14.5) % Immature Gran # 0.17 H (0.00-0.04) X 10*3/uL Lymphocytes # 0.86 L (0.90-5.00) X 10*3/uL Creatinine (0.6-1.5) mg/dL Est GFR (CKD-EPI) (>=60) Glucose (70-110) mg/dL POC Glucose (mg/dL) 225 H 268 H (70-110) mg/dL Calcium (8.7-10.3) mg/dL ALT (8-44) U/L Alkaline Phosphatase (41-126) U/L Albumin (3.8-4.9) g/dL Globulin (1.6-3.3) g/dL Albumin/Globulin Ratio (1.60-3.17) Ratio 12/01/23 12/01/23 12/01/23 Range/Units 05:53 07:49 11:25 RBC (4.10-5.20) X 10*6/uL Hgb (12.0-15.0) g/dL Hct (37.2-46.3) % MCH (27.0-32.0) pg MCHC (32.0-37.0) g/dL RDW (11.5-14.5) % Immature Gran # (0.00-0.04) X 10*3/uL Lymphocytes # (0.90-5.00) X 10*3/uL Creatinine 1.8 H (0.6-1.5) mg/dL Est GFR (CKD-EPI) 32 L (>=60) Glucose 142 H (70-110) mg/dL POC Glucose (mg/dL) 169 H 120 H (70-110) mg/dL Calcium 7.9 L (8.7-10.3) mg/dL ALT <5 L (8-44) U/L Alkaline Phosphatase 208 H (41-126) U/L Albumin 2.8 L (3.8-4.9) g/dL Globulin 3.6 H (1.6-3.3) g/dL Albumin/Globulin Ratio 0.78 L (1.60-3.17) Ratio Microbiology - Last 24 Hours (Table) 11/28/23 05:39 Blood Culture Gram Stain - Preliminary Blood Blood Culture - Preliminary Molecular ID 11/29/23 13:51 Blood Culture - Preliminary Blood
--- NOTE | 2023-12-01 15:47 | P.PN ---
Subjective Progress Note Date: 12/01/23 Principal diagnosis: Reason for follow-up is MRSA bacteremia Patient is a 58-year-old female with a past medical history significant for diabetes mellitus hypertension hyperlipidemia diabetic heel ulcer and infection that seem to have healing history of end-stage renal disease on dialysis patient has been brought to the hospital for swelling patient noticed to have worsening of her kidney function did have a right IJ dialysis catheter placement, patient was noticed to have swelling to the right upper extremity previously did have a IV to the right antecubital fossa from 11/20/2023 to 11/22/2023 now with evidence of MRSA bacteremia. On today's evaluation that is 12/01/2023, the patient continues to be afebrile, the patient is on room air and breathing comfortably, the Pt denies having any chest pain or cough, the patient denies having any abdominal pain no vomiting or any diarrhea has been reported by the nursing staff, mention feeling better. Patient white count is 8.01, creatinine is 1.8 blood culture from 11/28/2023 positive blood culture on 11/29/2023 so far negative Objective - Vital Signs Vital signs: Vital Signs Temp 97.4 F L 12/01/23 14:10 Pulse 83 12/01/23 14:10 Resp 17 12/01/23 14:10 BP 130/80 12/01/23 14:10 Pulse Ox 90 L 12/01/23 14:10 FiO2 Intake & Output 11/30/23 12/01/23 12/01/23 18:59 06:59 18:59 Intake Total 360 Balance 360 Weight 50.5 kg Intake: Other 360 Other: Voiding Method Diaper # Voids 1 2 # Bowel Movements 1 - Exam GENERAL DESCRIPTION: Middle-aged female up in bed in no distress RESPIRATORY SYSTEM: Unlabored breathing , decreased breath sounds at bases HEART: S1 S2 regular rate and rhythm , ABDOMEN: Soft , no tenderness EXTREMITIES: Right upper extremity did have minimal swelling compared to the left arm slightly warm but no open wound or drainage - Labs CBC & Chem 7: 12/01/23 05:53 12/01/23 05:53 Labs: Abnormal Lab Results - Last 24 Hours (Table) 11/30/23 11/30/23 12/01/23 Range/Units 16:27 23:16 05:53 RBC 2.96 L (4.10-5.20) X 10*6/uL Hgb 7.7 L (12.0-15.0) g/dL Hct 26.4 L (37.2-46.3) % MCH 26.0 L (27.0-32.0) pg MCHC 29.2 L (32.0-37.0) g/dL RDW 17.2 H (11.5-14.5) % Immature Gran # 0.17 H (0.00-0.04) X 10*3/uL Lymphocytes # 0.86 L (0.90-5.00) X 10*3/uL Creatinine (0.6-1.5) mg/dL Est GFR (CKD-EPI) (>=60) Glucose (70-110) mg/dL POC Glucose (mg/dL) 225 H 268 H (70-110) mg/dL Calcium (8.7-10.3) mg/dL ALT (8-44) U/L Alkaline Phosphatase (41-126) U/L Albumin (3.8-4.9) g/dL Globulin (1.6-3.3) g/dL Albumin/Globulin Ratio (1.60-3.17) Ratio 12/01/23 12/01/23 12/01/23 Range/Units 05:53 07:49 11:25 RBC (4.10-5.20) X 10*6/uL Hgb (12.0-15.0) g/dL Hct (37.2-46.3) % MCH (27.0-32.0) pg MCHC (32.0-37.0) g/dL RDW (11.5-14.5) % Immature Gran # (0.00-0.04) X 10*3/uL Lymphocytes # (0.90-5.00) X 10*3/uL Creatinine 1.8 H (0.6-1.5) mg/dL Est GFR (CKD-EPI) 32 L (>=60) Glucose 142 H (70-110) mg/dL POC Glucose (mg/dL) 169 H 120 H (70-110) mg/dL Calcium 7.9 L (8.7-10.3) mg/dL ALT <5 L (8-44) U/L Alkaline Phosphatase 208 H (41-126) U/L Albumin 2.8 L (3.8-4.9) g/dL Globulin 3.6 H (1.6-3.3) g/dL Albumin/Globulin Ratio 0.78 L (1.60-3.17) Ratio Microbiology - Last 24 Hours (Table) 11/28/23 05:39 Blood Culture Gram Stain - Preliminary Blood Blood Culture - Preliminary Molecular ID 11/29/23 13:51 Blood Culture - Preliminary Blood Assessment and Plan (1) Bacteremia due to methicillin resistant Staphylococcus aureus Current Visit: Yes Status: Acute Code(s): R78.81 - BACTEREMIA; B95.62 - METHICILLIN RESIS STAPH INFCT CAUSING DISEASES CLASSD ELSR SNOMED Code(s): 53927444902454558 (2) Right arm cellulitis Current Visit: Yes Status: Acute Code(s): L03.113 - CELLULITIS OF RIGHT UPPER LIMB SNOMED Code(s): 37614542199668370 Plan: 1patient with MRSA bacteremia questionably to the right upper extremity cellulitis and she was noted to have some swelling and redness to the right upper extremity on 12/27/2023 subsequent has shown improvement however the phyllis ent recently did have a permacatheter placement and there will be high clinical suspicious for secondary seeding and infection of the catheter. 2blood culture has been repeated peripherally on 11/28/2023 has been positive however blood culture repeated from the dialysis on 11/29/2023 so far pending 3patient to continue with the daptomycin if the patient did have persistent bacteremia especially blood culture positive especially from the pulm catheter in the past month getting her to come off we will repeat a blood culture with a.m. lab Dictation was produced using [employer] dictation software. please excuse any grammatical, word or spelling errors. Time with Patient: Less than 30
[2023-12-01 16:25] LABS: Glucose,Whole Blood 189 mg/dL (70-110)
[2023-12-01 21:30] LABS: Glucose,Whole Blood 190 mg/dL (70-110)
[2023-12-01] MEDS: ALPRAZolam 0.25 MG TAB PO PRN (23:21)
[2023-12-02 07:18] LABS: Glucose,Whole Blood 138 mg/dL (70-110)
[2023-12-02] MEDS ORDERED: CALCIUM ACETATE 667 MG TAB ONE (08:01)
[2023-12-02 11:47] LABS: Glucose,Whole Blood 182 mg/dL (70-110)
[2023-12-02] MEDS ORDERED: INSULIN ASPART (NovoLOG) 100 UNIT/ML VIAL SQ ONE ×2 (12:49→21:18)
[2023-12-02 16:45] LABS: Glucose,Whole Blood 121 mg/dL (70-110)
[2023-12-02 21:13] LABS: Glucose,Whole Blood 218 mg/dL (70-110)
[2023-12-02] MEDS ORDERED: MELATONIN 5 MG TABLET ONE (21:17)
[2023-12-02] MEDS ORDERED: hydrALAZINE HCL 25 MG TAB ONE (21:17)
[2023-12-02] MEDS ORDERED: DOCUSATE 100 MG CAP ONE (21:17)
[2023-12-02] MEDS ORDERED: HYDROcodone/APAP 7.5-325MG 1 EACH TAB ONE (21:21)
[2023-12-02] MEDS ORDERED: ALPRAZolam 0.25 MG TAB ONE (23:03)
[2023-12-03] MEDS ORDERED: SODIUM CHLORIDE 0.65% NASAL SPRAY 44 ML BTL ONE (00:01)
[2023-12-03] MEDS ORDERED: HYDROcodone/APAP 7.5-325MG 1 EACH TAB ONE ×5 (01:45→21:36)
[2023-12-03 05:56] LABS: Glucose,Whole Blood 317 mg/dL (70-110)
[2023-12-03] MEDS ORDERED: CALCIUM ACETATE 667 MG TAB ONE (06:44)
[2023-12-03] MEDS ORDERED: LEVOTHYROXINE 75 MCG TAB ONE (06:46)
[2023-12-03] MEDS ORDERED: INSULIN ASPART (NovoLOG) 100 UNIT/ML VIAL SQ ONE ×3 (06:46→21:37)
[2023-12-03] MEDS ORDERED: CHOLECALCIFEROL 25 MCG (1000 IU) TABLET ONE (07:58)
[2023-12-03] MEDS ORDERED: ATORVASTATIN 40 MG TAB ONE (07:58)
[2023-12-03] MEDS ORDERED: ASPIRIN 81 MG ONE (07:58)
[2023-12-03] MEDS ORDERED: MULTIVITAMINS, THERA 1 EACH TAB ONE (08:00)
[2023-12-03] MEDS ORDERED: hydrALAZINE HCL 25 MG TAB ONE ×2 (08:00→21:36)
[2023-12-03] MEDS ORDERED: DAPAGLIFLOZIN PROPANEDIOL 10 MG TABLET ONE (08:01)
[2023-12-03] MEDS ORDERED: CLOPIDOGREL 75 MG TAB ONE (08:01)
[2023-12-03] MEDS ORDERED: PANTOPRAZOLE 40 MG TABLET PO ONE (08:01)
[2023-12-03] MEDS ORDERED: DOCUSATE 100 MG CAP ONE ×2 (08:01→21:36)
[2023-12-03] MEDS ORDERED: THIAMINE 100 MG TAB ONE (08:01)
[2023-12-03] MEDS ORDERED: FOLIC ACID 1 MG TAB ONE (08:02)
[2023-12-03] MEDS ORDERED: TORSEMIDE 20 MG TAB ONE (10:55)
[2023-12-03 11:57] LABS: Glucose,Whole Blood 364 mg/dL (70-110)
[2023-12-03] MEDS ORDERED: ALPRAZolam 0.25 MG TAB ONE (14:51)
[2023-12-03 16:37] LABS: Glucose,Whole Blood 157 mg/dL (70-110)
[2023-12-03] MEDS ORDERED: IPRATROPIUM-ALBUTEROL 3 ML NEB ONE (20:19)
[2023-12-03 20:41] LABS: Glucose,Whole Blood 295 mg/dL (70-110)
[2023-12-03] MEDS ORDERED: HEPARIN SODIUM,PORCINE 5,000 UNIT/ML 1 ML VIAL ONE (21:36)
[2023-12-03] MEDS ORDERED: MELATONIN 5 MG TABLET ONE (21:36)
[2023-12-04] MEDS ORDERED: HYDROcodone/APAP 7.5-325MG 1 EACH TAB ONE ×4 (01:13→21:25)
[2023-12-04 06:10] LABS: Glucose,Whole Blood 280 mg/dL (70-110)
[2023-12-04] MEDS ORDERED: CALCIUM ACETATE 667 MG TAB ONE ×2 (06:46→13:27)
[2023-12-04] MEDS ORDERED: INSULIN ASPART (NovoLOG) 100 UNIT/ML VIAL SQ ONE ×2 (06:46→13:27)
[2023-12-04] MEDS ORDERED: LEVOTHYROXINE 75 MCG TAB ONE (06:47)
[2023-12-04] MEDS ORDERED: DAPAGLIFLOZIN PROPANEDIOL 10 MG TABLET ONE (09:13)
[2023-12-04] MEDS ORDERED: CLOPIDOGREL 75 MG TAB ONE (09:13)
[2023-12-04] MEDS ORDERED: CHOLECALCIFEROL 25 MCG (1000 IU) TABLET ONE (09:13)
[2023-12-04] MEDS ORDERED: THIAMINE 100 MG TAB ONE (09:13)
[2023-12-04] MEDS ORDERED: MULTIVITAMINS, THERA 1 EACH TAB ONE (09:13)
[2023-12-04] MEDS ORDERED: PANTOPRAZOLE 40 MG TABLET PO ONE (09:13)
[2023-12-04] MEDS ORDERED: ASPIRIN 81 MG ONE (09:13)
[2023-12-04] MEDS ORDERED: ATORVASTATIN 40 MG TAB ONE (09:13)
[2023-12-04] MEDS ORDERED: DOCUSATE 100 MG CAP ONE ×2 (09:14→23:33)
[2023-12-04] MEDS ORDERED: FOLIC ACID 1 MG TAB ONE (09:14)
[2023-12-04] MEDS ORDERED: MIDODRINE 5 MG TAB ONE (09:54)
[2023-12-04 11:58] LABS: Glucose,Whole Blood 218 mg/dL (70-110)
[2023-12-04 16:36] LABS: Glucose,Whole Blood 135 mg/dL (70-110)
[2023-12-04] MEDS ORDERED: FUROSEMIDE 10 MG/ML 10 ML VIAL ONE ×2 (19:59)
[2023-12-04 21:29] LABS: Glucose,Whole Blood 148 mg/dL (70-110)
[2023-12-04] MEDS ORDERED: MELATONIN 5 MG TABLET ONE (23:33)
[2023-12-04] MEDS ORDERED: hydrALAZINE HCL 25 MG TAB ONE (23:33)
[2023-12-05] MEDS ORDERED: DAPTOmycin 500 MG VIAL ONE (00:01)
[2023-12-05] MEDS ORDERED: SODIUM CHLORIDE 0.9% 50 ML BAG ONE (00:01)
[2023-12-05] MEDS ORDERED: HYDROcodone/APAP 7.5-325MG 1 EACH TAB ONE ×5 (02:25→21:04)
[2023-12-05 06:36] LABS: Glucose,Whole Blood 208 mg/dL (70-110)
[2023-12-05] MEDS ORDERED: CALCIUM ACETATE 667 MG TAB ONE ×3 (09:16→16:50)
[2023-12-05] MEDS ORDERED: hydrALAZINE HCL 25 MG TAB ONE ×2 (09:16→21:03)
[2023-12-05] MEDS ORDERED: ASPIRIN 81 MG ONE (09:17)
[2023-12-05] MEDS ORDERED: CHOLECALCIFEROL 25 MCG (1000 IU) TABLET ONE (09:17)
[2023-12-05] MEDS ORDERED: PANTOPRAZOLE 40 MG TABLET PO ONE (09:17)
[2023-12-05] MEDS ORDERED: ATORVASTATIN 40 MG TAB ONE (09:17)
[2023-12-05] MEDS ORDERED: MULTIVITAMINS, THERA 1 EACH TAB ONE (09:17)
[2023-12-05] MEDS ORDERED: CLOPIDOGREL 75 MG TAB ONE (09:17)
[2023-12-05] MEDS ORDERED: THIAMINE 100 MG TAB ONE (09:18)
[2023-12-05] MEDS ORDERED: FOLIC ACID 1 MG TAB ONE (09:18)
[2023-12-05] MEDS ORDERED: DOCUSATE 100 MG CAP ONE ×2 (09:18→21:03)
[2023-12-05 11:26] LABS: Glucose,Whole Blood 414 mg/dL (70-110)
[2023-12-05] MEDS ORDERED: INSULIN ASPART (NovoLOG) 100 UNIT/ML VIAL SQ ONE ×3 (12:02→21:05)
[2023-12-05 16:12] LABS: Glucose,Whole Blood 303 mg/dL (70-110)
[2023-12-05 20:56] LABS: Glucose,Whole Blood 293 mg/dL (70-110)
[2023-12-05] MEDS ORDERED: MELATONIN 5 MG TABLET ONE (21:03)
[2023-12-05] MEDS ORDERED: TORSEMIDE 20 MG TAB ONE (21:05)
[2023-12-06 06:00] LABS: Glucose,Whole Blood 218 mg/dL (70-110)
[2023-12-06] MEDS ORDERED: INSULIN ASPART (NovoLOG) 100 UNIT/ML VIAL SQ ONE ×4 (06:51→18:33)
[2023-12-06] MEDS ORDERED: CALCIUM ACETATE 667 MG TAB ONE ×3 (06:51→17:52)
[2023-12-06] MEDS ORDERED: LEVOTHYROXINE 75 MCG TAB ONE (06:52)
[2023-12-06] MEDS ORDERED: HYDROcodone/APAP 7.5-325MG 1 EACH TAB ONE ×3 (07:02→21:32)
[2023-12-06] MEDS ORDERED: HEPARIN SODIUM,PORCINE 5,000 UNIT/ML 1 ML VIAL ONE (08:05)
[2023-12-06] MEDS ORDERED: ASPIRIN 81 MG ONE (08:05)
[2023-12-06] MEDS ORDERED: MULTIVITAMINS, THERA 1 EACH TAB ONE (08:05)
[2023-12-06] MEDS ORDERED: ATORVASTATIN 40 MG TAB ONE (08:05)
[2023-12-06] MEDS ORDERED: PANTOPRAZOLE 40 MG TABLET PO ONE (08:05)
[2023-12-06] MEDS ORDERED: CHOLECALCIFEROL 25 MCG (1000 IU) TABLET ONE (08:05)
[2023-12-06] MEDS ORDERED: hydrALAZINE HCL 25 MG TAB ONE ×2 (08:05→21:23)
[2023-12-06] MEDS ORDERED: CLOPIDOGREL 75 MG TAB ONE (08:06)
[2023-12-06] MEDS ORDERED: TORSEMIDE 20 MG TAB ONE (08:06)
[2023-12-06] MEDS ORDERED: DOCUSATE 100 MG CAP ONE ×2 (08:06→21:24)
[2023-12-06] MEDS ORDERED: THIAMINE 100 MG TAB ONE (08:06)
[2023-12-06] MEDS ORDERED: DAPAGLIFLOZIN PROPANEDIOL 10 MG TABLET ONE (08:06)
[2023-12-06] MEDS ORDERED: FOLIC ACID 1 MG TAB ONE (08:06)
[2023-12-06] MEDS ORDERED: LACTULOSE 20 GM/30 ML CUP ONE ×2 (09:12)
[2023-12-06] MEDS ORDERED: FAMOTIDINE 20 MG TAB ONE ×2 (09:12)
[2023-12-06 11:35] LABS: Glucose,Whole Blood 246 mg/dL (70-110)
[2023-12-06 17:02] LABS: Glucose,Whole Blood 489 mg/dL (70-110)
[2023-12-06 21:16] LABS: Glucose,Whole Blood 73 mg/dL (70-110)
[2023-12-06] MEDS ORDERED: MELATONIN 5 MG TABLET ONE (21:23)
[2023-12-07] MEDS ORDERED: HYDROcodone/APAP 7.5-325MG 1 EACH TAB ONE ×3 (01:05→20:42)
[2023-12-07] MEDS ORDERED: LEVOTHYROXINE 75 MCG TAB ONE (06:20)
[2023-12-07 06:31] LABS: Glucose,Whole Blood 171 mg/dL (70-110)
[2023-12-07] MEDS ORDERED: INSULIN ASPART (NovoLOG) 100 UNIT/ML VIAL SQ ONE ×4 (06:38→22:14)
[2023-12-07] MEDS ORDERED: DAPTOmycin 500 MG VIAL ONE (09:00)
[2023-12-07] MEDS ORDERED: SODIUM CHLORIDE 0.9% 50 ML BAG IV ONE (09:00)
[2023-12-07] MEDS ORDERED: DARBEPOETIN ALFA 40 MCG/0.4 ML SYRINGE ONE (09:00)
[2023-12-07] MEDS ORDERED: hydrALAZINE HCL 25 MG TAB ONE ×2 (09:57→20:41)
[2023-12-07] MEDS ORDERED: HEPARIN SODIUM,PORCINE 5,000 UNIT/ML 1 ML VIAL ONE (09:58)
[2023-12-07] MEDS ORDERED: MULTIVITAMINS, THERA 1 EACH TAB ONE (09:58)
[2023-12-07] MEDS ORDERED: CLOPIDOGREL 75 MG TAB ONE (09:58)
[2023-12-07] MEDS ORDERED: CHOLECALCIFEROL 25 MCG (1000 IU) TABLET ONE (09:58)
[2023-12-07] MEDS ORDERED: ASPIRIN 81 MG ONE (09:58)
[2023-12-07] MEDS ORDERED: PANTOPRAZOLE 40 MG TABLET PO ONE (09:58)
[2023-12-07] MEDS ORDERED: THIAMINE 100 MG TAB ONE (09:58)
[2023-12-07] MEDS ORDERED: ATORVASTATIN 40 MG TAB ONE (09:58)
[2023-12-07] MEDS ORDERED: DOCUSATE 100 MG CAP ONE ×2 (09:59→20:42)
[2023-12-07] MEDS ORDERED: FOLIC ACID 1 MG TAB ONE (09:59)
[2023-12-07] MEDS ORDERED: DAPAGLIFLOZIN PROPANEDIOL 10 MG TABLET ONE (09:59)
[2023-12-07] MEDS ORDERED: TORSEMIDE 20 MG TAB ONE (10:01)
[2023-12-07 11:33] LABS: Glucose,Whole Blood 277 mg/dL (70-110)
[2023-12-07] MEDS ORDERED: CALCIUM ACETATE 667 MG TAB ONE ×2 (12:58→13:00)
[2023-12-07 17:08] LABS: Glucose,Whole Blood 192 mg/dL (70-110)
[2023-12-07] MEDS ORDERED: MELATONIN 5 MG TABLET ONE (20:42)
[2023-12-07 21:14] LABS: Glucose,Whole Blood 256 mg/dL (70-110)
[2023-12-08] MEDS ORDERED: HYDROcodone/APAP 7.5-325MG 1 EACH TAB ONE ×4 (03:25→21:26)
[2023-12-08 05:54] LABS: Glucose,Whole Blood 265 mg/dL (70-110)
[2023-12-08] MEDS ORDERED: CALCIUM ACETATE 667 MG TAB ONE ×4 (06:35→16:56)
[2023-12-08] MEDS ORDERED: LEVOTHYROXINE 75 MCG TAB ONE (06:36)
[2023-12-08] MEDS ORDERED: INSULIN ASPART (NovoLOG) 100 UNIT/ML VIAL SQ ONE ×3 (06:36→20:51)
[2023-12-08] MEDS ORDERED: ATORVASTATIN 40 MG TAB ONE (07:55)
[2023-12-08] MEDS ORDERED: MULTIVITAMINS, THERA 1 EACH TAB ONE (07:55)
[2023-12-08] MEDS ORDERED: hydrALAZINE HCL 25 MG TAB ONE ×2 (07:55→20:49)
[2023-12-08] MEDS ORDERED: PANTOPRAZOLE 40 MG TABLET PO ONE (07:56)
[2023-12-08] MEDS ORDERED: HEPARIN SODIUM,PORCINE 5,000 UNIT/ML 1 ML VIAL ONE (07:56)
[2023-12-08] MEDS ORDERED: CLOPIDOGREL 75 MG TAB ONE (07:56)
[2023-12-08] MEDS ORDERED: ASPIRIN 81 MG ONE (07:56)
[2023-12-08] MEDS ORDERED: CHOLECALCIFEROL 25 MCG (1000 IU) TABLET ONE (07:56)
[2023-12-08] MEDS ORDERED: THIAMINE 100 MG TAB ONE (07:57)
[2023-12-08] MEDS ORDERED: DOCUSATE 100 MG CAP ONE ×2 (07:57→20:50)
[2023-12-08] MEDS ORDERED: FOLIC ACID 1 MG TAB ONE (07:57)
[2023-12-08] MEDS ORDERED: TORSEMIDE 20 MG TAB ONE ×2 (07:57→07:58)
[2023-12-08] MEDS ORDERED: ACETAMINOPHEN TAB 325 MG TAB ONE (10:54)
[2023-12-08 11:41] LABS: Glucose,Whole Blood 254 mg/dL (70-110)
[2023-12-08 16:55] LABS: Glucose,Whole Blood 352 mg/dL (70-110)
[2023-12-08] MEDS ORDERED: ALPRAZolam 0.25 MG TAB ONE (19:00)
[2023-12-08] MEDS ORDERED: MELATONIN 5 MG TABLET ONE (20:50)
[2023-12-09] MEDS ORDERED: HYDROcodone/APAP 7.5-325MG 1 EACH TAB ONE ×2 (02:52→22:14)
[2023-12-09 05:38] LABS: Glucose,Whole Blood 158 mg/dL (70-110)
[2023-12-09] MEDS ORDERED: CALCIUM ACETATE 667 MG TAB ONE (06:18)
[2023-12-09] MEDS ORDERED: INSULIN ASPART (NovoLOG) 100 UNIT/ML VIAL SQ ONE ×4 (06:19→22:17)
[2023-12-09] MEDS ORDERED: LEVOTHYROXINE 75 MCG TAB ONE (06:19)
[2023-12-09] MEDS ORDERED: hydrALAZINE HCL 25 MG TAB ONE ×2 (08:32→22:12)
[2023-12-09] MEDS ORDERED: ATORVASTATIN 40 MG TAB ONE (08:32)
[2023-12-09] MEDS ORDERED: PANTOPRAZOLE 40 MG TABLET PO ONE (08:32)
[2023-12-09] MEDS ORDERED: ASPIRIN 81 MG ONE (08:32)
[2023-12-09] MEDS ORDERED: CHOLECALCIFEROL 25 MCG (1000 IU) TABLET ONE (08:32)
[2023-12-09] MEDS ORDERED: THIAMINE 100 MG TAB ONE (08:33)
[2023-12-09] MEDS ORDERED: DOCUSATE 100 MG CAP ONE ×2 (08:33→22:13)
[2023-12-09] MEDS ORDERED: CLOPIDOGREL 75 MG TAB ONE (08:33)
[2023-12-09] MEDS ORDERED: FOLIC ACID 1 MG TAB ONE (08:33)
[2023-12-09] MEDS ORDERED: TORSEMIDE 20 MG TAB ONE (08:33)
[2023-12-09] MEDS ORDERED: MULTIVITAMINS, THERA 1 EACH TAB ONE (08:45)
[2023-12-09] MEDS ORDERED: SODIUM CHLORIDE 0.9% 50 ML BAG IV ONE (09:00)
[2023-12-09] MEDS ORDERED: DESMOPRESSIN ACETATE 4 MCG/ML VIAL (MDV) ONE (09:00)
[2023-12-09] MEDS ORDERED: SODIUM CHLORIDE 0.9% 50 ML BAG ONE (09:00)
[2023-12-09] MEDS ORDERED: DAPTOmycin 500 MG VIAL ONE (09:00)
[2023-12-09 16:50] LABS: Glucose,Whole Blood 177 mg/dL (70-110)
[2023-12-09] MEDS ORDERED: LIDOCAINE 1% INJ 10MG/ML (20 ML MDV) ONE ×2 (17:37)
[2023-12-09] MEDS ORDERED: MELATONIN 5 MG TABLET ONE (22:12)
[2023-12-10] MEDS ORDERED: HYDROcodone/APAP 7.5-325MG 1 EACH TAB ONE ×3 (02:04→20:51)
[2023-12-10] MEDS ORDERED: INSULIN ASPART (NovoLOG) 100 UNIT/ML VIAL SQ ONE ×4 (06:28→20:52)
[2023-12-10] MEDS ORDERED: ATORVASTATIN 40 MG TAB ONE (09:58)
[2023-12-10] MEDS ORDERED: hydrALAZINE HCL 25 MG TAB ONE ×2 (09:58→20:50)
[2023-12-10] MEDS ORDERED: CLOPIDOGREL 75 MG TAB ONE (09:58)
[2023-12-10] MEDS ORDERED: ASPIRIN 81 MG ONE (09:58)
[2023-12-10] MEDS ORDERED: CALCIUM ACETATE 667 MG TAB ONE ×3 (09:58→16:46)
[2023-12-10] MEDS ORDERED: PANTOPRAZOLE 40 MG TABLET PO ONE (09:58)
[2023-12-10] MEDS ORDERED: CHOLECALCIFEROL 25 MCG (1000 IU) TABLET ONE (09:58)
[2023-12-10] MEDS ORDERED: MULTIVITAMINS, THERA 1 EACH TAB ONE (09:58)
[2023-12-10] MEDS ORDERED: LEVOTHYROXINE 75 MCG TAB ONE (09:59)
[2023-12-10] MEDS ORDERED: DOCUSATE 100 MG CAP ONE ×2 (09:59→20:51)
[2023-12-10] MEDS ORDERED: THIAMINE 100 MG TAB ONE (09:59)
[2023-12-10] MEDS ORDERED: FOLIC ACID 1 MG TAB ONE (09:59)
[2023-12-10] MEDS ORDERED: FUROSEMIDE 10 MG/ML 10 ML VIAL ONE ×2 (11:10)
[2023-12-10 20:42] LABS: Glucose,Whole Blood 226 mg/dL (70-110)
[2023-12-10] MEDS ORDERED: ALPRAZolam 0.25 MG TAB ONE (20:50)
[2023-12-10] MEDS ORDERED: MELATONIN 5 MG TABLET ONE (20:50)
[2023-12-10] MEDS ORDERED: HEPARIN SODIUM,PORCINE 5,000 UNIT/ML 1 ML VIAL ONE (20:50)
[2023-12-10] MEDS ORDERED: FUROSEMIDE 10 MG/ML 4 ML VIAL ONE ×2 (23:45)
[2023-12-11] MEDS ORDERED: HYDROcodone/APAP 7.5-325MG 1 EACH TAB ONE ×3 (01:55→13:08)
[2023-12-11] MEDS ORDERED: MORPHINE SULFATE 2 MG/ML SYRINGE ONE ×6 (02:18→22:23)
[2023-12-11] MEDS ORDERED: LEVOTHYROXINE 75 MCG TAB ONE (06:01)
[2023-12-11] MEDS ORDERED: MULTIVITAMINS, THERA 1 EACH TAB ONE (08:31)
[2023-12-11] MEDS ORDERED: ATORVASTATIN 40 MG TAB ONE (08:31)
[2023-12-11] MEDS ORDERED: ASPIRIN 81 MG ONE (08:31)
[2023-12-11] MEDS ORDERED: CALCIUM ACETATE 667 MG TAB ONE ×3 (08:31→15:49)
[2023-12-11] MEDS ORDERED: hydrALAZINE HCL 25 MG TAB ONE ×2 (08:31→22:22)
[2023-12-11] MEDS ORDERED: PANTOPRAZOLE 40 MG TABLET PO ONE (08:32)
[2023-12-11] MEDS ORDERED: CHOLECALCIFEROL 25 MCG (1000 IU) TABLET ONE (08:32)
[2023-12-11] MEDS ORDERED: THIAMINE 100 MG TAB ONE (08:33)
[2023-12-11] MEDS ORDERED: CLOPIDOGREL 75 MG TAB ONE (08:33)
[2023-12-11] MEDS ORDERED: FUROSEMIDE 10 MG/ML 10 ML VIAL ONE ×4 (08:33→15:49)
[2023-12-11] MEDS ORDERED: FOLIC ACID 1 MG TAB ONE (08:34)
[2023-12-11] MEDS ORDERED: DOCUSATE 100 MG CAP ONE ×2 (08:34→22:23)
[2023-12-11] MEDS ORDERED: SODIUM CHLORIDE 0.9% 50 ML BAG IV ONE (09:00)
[2023-12-11] MEDS ORDERED: DAPTOmycin 500 MG VIAL ONE (09:00)
[2023-12-11 11:27] LABS: Glucose,Whole Blood 385 mg/dL (70-110)
[2023-12-11] MEDS ORDERED: INSULIN ASPART (NovoLOG) 100 UNIT/ML VIAL SQ ONE ×2 (12:37→22:24)
[2023-12-11] MEDS ORDERED: FUROSEMIDE 10 MG/ML 4 ML VIAL ONE ×2 (22:22)
[2023-12-11] MEDS ORDERED: MELATONIN 5 MG TABLET ONE (22:22)
[2023-12-12] MEDS ORDERED: MORPHINE SULFATE 2 MG/ML SYRINGE ONE ×2 (04:42)
[2023-12-12] MEDS ORDERED: CALCIUM ACETATE 667 MG TAB ONE ×2 (06:51→17:39)
[2023-12-12] MEDS ORDERED: LEVOTHYROXINE 75 MCG TAB ONE (06:52)
[2023-12-12] MEDS ORDERED: INSULIN ASPART (NovoLOG) 100 UNIT/ML VIAL SQ ONE ×4 (06:52→22:24)
[2023-12-12] MEDS ORDERED: FUROSEMIDE 10 MG/ML 4 ML VIAL ONE ×6 (06:58→22:23)
[2023-12-12] MEDS ORDERED: HYDROcodone/APAP 5-325MG 1 EACH TAB ONE ×2 (06:59)
[2023-12-12] MEDS ORDERED: hydrALAZINE HCL 25 MG TAB ONE ×2 (10:51→22:23)
[2023-12-12] MEDS ORDERED: MULTIVITAMINS, THERA 1 EACH TAB ONE (10:52)
[2023-12-12] MEDS ORDERED: PANTOPRAZOLE 40 MG TABLET PO ONE (10:52)
[2023-12-12] MEDS ORDERED: CLOPIDOGREL 75 MG TAB ONE (10:52)
[2023-12-12] MEDS ORDERED: THIAMINE 100 MG TAB ONE (10:52)
[2023-12-12] MEDS ORDERED: DOCUSATE 100 MG CAP ONE (10:52)
[2023-12-12] MEDS ORDERED: CHOLECALCIFEROL 25 MCG (1000 IU) TABLET ONE (10:52)
[2023-12-12] MEDS ORDERED: ASPIRIN 81 MG ONE (10:52)
[2023-12-12] MEDS ORDERED: HYDROcodone/APAP 7.5-325MG 1 EACH TAB ONE ×2 (10:53→22:24)
[2023-12-12] MEDS ORDERED: FOLIC ACID 1 MG TAB ONE (10:53)
[2023-12-12] MEDS ORDERED: ZINC OXIDE PASTE (Z-GUARD) 1 APPLIC TOPICAL ONE (11:07)
[2023-12-12] MEDS ORDERED: MELATONIN 5 MG TABLET ONE (22:23)
[2023-12-13] MEDS ORDERED: HYDROcodone/APAP 7.5-325MG 1 EACH TAB ONE ×4 (02:50→20:17)
[2023-12-13] MEDS ORDERED: FUROSEMIDE 10 MG/ML 4 ML VIAL ONE ×3 (06:13→20:16)
[2023-12-13] MEDS ORDERED: CALCIUM ACETATE 667 MG TAB ONE ×3 (06:13→17:28)
[2023-12-13] MEDS ORDERED: LEVOTHYROXINE 75 MCG TAB ONE (06:14)
[2023-12-13] MEDS ORDERED: INSULIN ASPART (NovoLOG) 100 UNIT/ML VIAL SQ ONE ×4 (06:14→20:24)
[2023-12-13] MEDS ORDERED: MULTIVITAMINS, THERA 1 EACH TAB ONE (08:53)
[2023-12-13] MEDS ORDERED: hydrALAZINE HCL 25 MG TAB ONE ×2 (08:53→20:15)
[2023-12-13] MEDS ORDERED: ASPIRIN 81 MG ONE (08:53)
[2023-12-13] MEDS ORDERED: CHOLECALCIFEROL 25 MCG (1000 IU) TABLET ONE (08:53)
[2023-12-13] MEDS ORDERED: FOLIC ACID 1 MG TAB ONE (08:54)
[2023-12-13] MEDS ORDERED: DOCUSATE 100 MG CAP ONE ×2 (08:54→20:16)
[2023-12-13] MEDS ORDERED: PANTOPRAZOLE 40 MG TABLET PO ONE (08:54)
[2023-12-13] MEDS ORDERED: THIAMINE 100 MG TAB ONE (08:54)
[2023-12-13] MEDS ORDERED: CLOPIDOGREL 75 MG TAB ONE (08:54)
[2023-12-13] MEDS ORDERED: MELATONIN 5 MG TABLET ONE (20:16)
[2023-12-14] MEDS ORDERED: MORPHINE SULFATE 2 MG/ML SYRINGE ONE ×3 (00:25→21:04)
[2023-12-14] MEDS ORDERED: FUROSEMIDE 10 MG/ML 4 ML VIAL ONE ×3 (07:36→21:02)
[2023-12-14] MEDS ORDERED: CALCIUM ACETATE 667 MG TAB ONE ×3 (07:36→18:16)
[2023-12-14] MEDS ORDERED: LEVOTHYROXINE 75 MCG TAB ONE (07:37)
[2023-12-14] MEDS ORDERED: INSULIN ASPART (NovoLOG) 100 UNIT/ML VIAL SQ ONE ×3 (07:37→18:17)
[2023-12-14] MEDS ORDERED: ASPIRIN 81 MG ONE (08:40)
[2023-12-14] MEDS ORDERED: hydrALAZINE HCL 25 MG TAB ONE ×2 (08:40→21:00)
[2023-12-14] MEDS ORDERED: CHOLECALCIFEROL 25 MCG (1000 IU) TABLET ONE (08:40)
[2023-12-14] MEDS ORDERED: MULTIVITAMINS, THERA 1 EACH TAB ONE (08:40)
[2023-12-14] MEDS ORDERED: DOCUSATE 100 MG CAP ONE ×2 (08:41→21:02)
[2023-12-14] MEDS ORDERED: THIAMINE 100 MG TAB ONE (08:41)
[2023-12-14] MEDS ORDERED: CLOPIDOGREL 75 MG TAB ONE (08:41)
[2023-12-14] MEDS ORDERED: FOLIC ACID 1 MG TAB ONE (08:41)
[2023-12-14] MEDS ORDERED: PANTOPRAZOLE 40 MG TABLET PO ONE (08:41)
[2023-12-14] MEDS ORDERED: HYDROcodone/APAP 7.5-325MG 1 EACH TAB ONE (14:07)
[2023-12-14] MEDS ORDERED: MELATONIN 5 MG TABLET ONE (21:00)
[2023-12-15] MEDS ORDERED: HYDROcodone/APAP 7.5-325MG 1 EACH TAB ONE ×2 (00:30→23:00)
[2023-12-15] MEDS ORDERED: FUROSEMIDE 10 MG/ML 4 ML VIAL ONE ×2 (06:17→13:29)
[2023-12-15] MEDS ORDERED: hydrALAZINE HCL 25 MG TAB ONE ×2 (10:42→21:44)
[2023-12-15] MEDS ORDERED: ASPIRIN 81 MG ONE (10:42)
[2023-12-15] MEDS ORDERED: PANTOPRAZOLE 40 MG TABLET PO ONE (10:42)
[2023-12-15] MEDS ORDERED: MULTIVITAMINS, THERA 1 EACH TAB ONE (10:42)
[2023-12-15] MEDS ORDERED: CALCIUM ACETATE 667 MG TAB ONE (10:42)
[2023-12-15] MEDS ORDERED: CHOLECALCIFEROL 25 MCG (1000 IU) TABLET ONE (10:42)
[2023-12-15] MEDS ORDERED: MORPHINE SULFATE 2 MG/ML SYRINGE ONE ×2 (10:43→18:43)
[2023-12-15] MEDS ORDERED: THIAMINE 100 MG TAB ONE (10:43)
[2023-12-15] MEDS ORDERED: CLOPIDOGREL 75 MG TAB ONE (10:43)
[2023-12-15] MEDS ORDERED: DOCUSATE 100 MG CAP ONE ×2 (10:43→21:45)
[2023-12-15] MEDS ORDERED: FOLIC ACID 1 MG TAB ONE (10:43)
[2023-12-15] MEDS ORDERED: LEVOTHYROXINE 75 MCG TAB ONE (10:44)
[2023-12-15] MEDS ORDERED: INSULIN ASPART (NovoLOG) 100 UNIT/ML VIAL SQ ONE ×3 (10:44→21:46)
[2023-12-15] MEDS ORDERED: ONDANSETRON 4 MG/2 ML VIAL ONE (13:29)
[2023-12-15] MEDS ORDERED: MELATONIN 5 MG TABLET ONE (21:44)
[2023-12-16] MEDS ORDERED: MORPHINE SULFATE 2 MG/ML SYRINGE ONE ×2 (01:30→13:39)
[2023-12-16] MEDS ORDERED: ONDANSETRON 4 MG/2 ML VIAL ONE ×2 (05:38→11:50)
[2023-12-16] MEDS ORDERED: HYDROcodone/APAP 7.5-325MG 1 EACH TAB ONE ×3 (05:38→20:59)
[2023-12-16] MEDS ORDERED: FUROSEMIDE 40 MG TAB ONE ×3 (05:39→20:50)
[2023-12-16] MEDS ORDERED: INSULIN ASPART (NovoLOG) 100 UNIT/ML VIAL SQ ONE ×4 (06:09→20:54)
[2023-12-16] MEDS ORDERED: CALCIUM ACETATE 667 MG TAB ONE ×3 (08:08→16:39)
[2023-12-16] MEDS ORDERED: hydrALAZINE HCL 25 MG TAB ONE ×2 (08:08→20:50)
[2023-12-16] MEDS ORDERED: ASPIRIN 81 MG ONE (08:08)
[2023-12-16] MEDS ORDERED: MULTIVITAMINS, THERA 1 EACH TAB ONE (08:08)
[2023-12-16] MEDS ORDERED: DOCUSATE 100 MG CAP ONE ×2 (08:09→20:50)
[2023-12-16] MEDS ORDERED: FOLIC ACID 1 MG TAB ONE (08:09)
[2023-12-16] MEDS ORDERED: PANTOPRAZOLE 40 MG TABLET PO ONE (08:09)
[2023-12-16] MEDS ORDERED: THIAMINE 100 MG TAB ONE (08:09)
[2023-12-16] MEDS ORDERED: CLOPIDOGREL 75 MG TAB ONE (08:09)
[2023-12-16] MEDS ORDERED: CHOLECALCIFEROL 25 MCG (1000 IU) TABLET ONE (08:09)
[2023-12-16] MEDS ORDERED: MELATONIN 5 MG TABLET ONE (20:50)
[2023-12-17] MEDS ORDERED: IPRATROPIUM-ALBUTEROL 3 ML NEB ONE (05:28)
[2023-12-17] MEDS ORDERED: PANTOPRAZOLE 40 MG TABLET PO ONE (06:18)
[2023-12-17] MEDS ORDERED: FUROSEMIDE 40 MG TAB ONE ×3 (06:18→23:57)
[2023-12-17] MEDS ORDERED: LEVOTHYROXINE 75 MCG TAB ONE (06:18)
[2023-12-17] MEDS ORDERED: CALCIUM ACETATE 667 MG TAB ONE ×3 (08:30→17:08)
[2023-12-17] MEDS ORDERED: CHOLECALCIFEROL 25 MCG (1000 IU) TABLET ONE (08:30)
[2023-12-17] MEDS ORDERED: MULTIVITAMINS, THERA 1 EACH TAB ONE (08:30)
[2023-12-17] MEDS ORDERED: ASPIRIN 81 MG ONE (08:30)
[2023-12-17] MEDS ORDERED: hydrALAZINE HCL 25 MG TAB ONE ×2 (08:30→23:52)
[2023-12-17] MEDS ORDERED: CLOPIDOGREL 75 MG TAB ONE (08:31)
[2023-12-17] MEDS ORDERED: THIAMINE 100 MG TAB ONE (08:31)
[2023-12-17] MEDS ORDERED: FOLIC ACID 1 MG TAB ONE (08:31)
[2023-12-17] MEDS ORDERED: DOCUSATE 100 MG CAP ONE ×2 (08:31→23:53)
[2023-12-17] MEDS ORDERED: MORPHINE SULFATE 2 MG/ML SYRINGE ONE (08:40)
[2023-12-17] MEDS ORDERED: HYDROcodone/APAP 7.5-325MG 1 EACH TAB ONE (10:29)
[2023-12-17] MEDS ORDERED: DEXTROSE 50% SYRINGE 50 ML IVP ONE (14:15)
[2023-12-17] MEDS ORDERED: INSULIN ASPART (NovoLOG) 100 UNIT/ML VIAL SQ ONE (17:09)
[2023-12-17] MEDS ORDERED: FUROSEMIDE 10 MG/ML 10 ML VIAL ONE ×2 (17:24→23:53)
[2023-12-17] MEDS ORDERED: MELATONIN 5 MG TABLET ONE (23:53)
[2023-12-18] MEDS ORDERED: MORPHINE SULFATE 4 MG/ML SYRINGE ONE ×3 (00:06→23:18)
[2023-12-18] MEDS ORDERED: HYDROcodone/APAP 7.5-325MG 1 EACH TAB ONE ×2 (03:06→09:52)
[2023-12-18] MEDS ORDERED: MORPHINE SULFATE 2 MG/ML SYRINGE ONE ×2 (06:44→12:13)
[2023-12-18] MEDS ORDERED: PANTOPRAZOLE 40 MG TABLET PO ONE (06:44)
[2023-12-18] MEDS ORDERED: LEVOTHYROXINE 75 MCG TAB ONE (06:45)
[2023-12-18] MEDS ORDERED: FUROSEMIDE 40 MG TAB ONE ×2 (06:45→20:43)
[2023-12-18] MEDS ORDERED: MULTIVITAMINS, THERA 1 EACH TAB ONE (09:43)
[2023-12-18] MEDS ORDERED: CHOLECALCIFEROL 25 MCG (1000 IU) TABLET ONE (09:43)
[2023-12-18] MEDS ORDERED: hydrALAZINE HCL 25 MG TAB ONE ×2 (09:43→20:42)
[2023-12-18] MEDS ORDERED: CALCIUM ACETATE 667 MG TAB ONE ×2 (09:43→14:19)
[2023-12-18] MEDS ORDERED: ASPIRIN 81 MG ONE (09:43)
[2023-12-18] MEDS ORDERED: FOLIC ACID 1 MG TAB ONE (09:44)
[2023-12-18] MEDS ORDERED: THIAMINE 100 MG TAB ONE (09:44)
[2023-12-18] MEDS ORDERED: CLOPIDOGREL 75 MG TAB ONE (09:44)
[2023-12-18] MEDS ORDERED: DOCUSATE 100 MG CAP ONE ×2 (09:44→20:43)
[2023-12-18] MEDS ORDERED: ZINC OXIDE PASTE (Z-GUARD) 1 APPLIC TOPICAL ONE (09:47)
[2023-12-18] MEDS ORDERED: FUROSEMIDE 10 MG/ML 4 ML VIAL ONE (14:19)
[2023-12-18] MEDS ORDERED: ONDANSETRON 4 MG/2 ML VIAL ONE (14:19)
[2023-12-18] MEDS ORDERED: HEPARIN SODIUM 1,000 UN/ML (10ML VL) ONE ×2 (17:59)
[2023-12-18] MEDS ORDERED: LIDOCAINE 1% INJ 10MG/ML (20 ML MDV) ONE ×4 (17:59→18:30)
[2023-12-18] MEDS ORDERED: MIDAZOLAM 2 MG/2 ML VIAL ONE ×2 (18:17)
[2023-12-18] MEDS ORDERED: MELATONIN 5 MG TABLET ONE (20:42)
[2023-12-18] MEDS ORDERED: INSULIN ASPART (NovoLOG) 100 UNIT/ML VIAL SQ ONE (21:03)
[2023-12-19] MEDS ORDERED: HYDROcodone/APAP 7.5-325MG 1 EACH TAB ONE ×3 (00:42→22:21)
[2023-12-19] MEDS ORDERED: MORPHINE SULFATE 2 MG/ML SYRINGE ONE ×2 (04:46→20:27)
[2023-12-19] MEDS ORDERED: LEVOTHYROXINE 75 MCG TAB ONE (07:41)
[2023-12-19] MEDS ORDERED: INSULIN ASPART (NovoLOG) 100 UNIT/ML VIAL SQ ONE (07:44)
[2023-12-19] MEDS ORDERED: CHOLECALCIFEROL 25 MCG (1000 IU) TABLET ONE (08:42)
[2023-12-19] MEDS ORDERED: MULTIVITAMINS, THERA 1 EACH TAB ONE (08:42)
[2023-12-19] MEDS ORDERED: CALCIUM ACETATE 667 MG TAB ONE (08:42)
[2023-12-19] MEDS ORDERED: ASPIRIN 81 MG ONE (08:42)
[2023-12-19] MEDS ORDERED: hydrALAZINE HCL 25 MG TAB ONE ×2 (08:42→20:26)
[2023-12-19] MEDS ORDERED: THIAMINE 100 MG TAB ONE (08:43)
[2023-12-19] MEDS ORDERED: DOCUSATE 100 MG CAP ONE ×2 (08:43→20:27)
[2023-12-19] MEDS ORDERED: FOLIC ACID 1 MG TAB ONE (08:43)
[2023-12-19] MEDS ORDERED: CLOPIDOGREL 75 MG TAB ONE (08:43)
[2023-12-19] MEDS ORDERED: MORPHINE SULFATE 4 MG/ML SYRINGE ONE ×2 (08:44→14:07)
[2023-12-19] MEDS ORDERED: MELATONIN 5 MG TABLET ONE (20:27)
[2023-12-20] MEDS ORDERED: MORPHINE SULFATE 2 MG/ML SYRINGE ONE ×3 (02:32→20:36)
[2023-12-20] MEDS ORDERED: PANTOPRAZOLE 40 MG TABLET PO ONE (06:41)
[2023-12-20] MEDS ORDERED: INSULIN ASPART (NovoLOG) 100 UNIT/ML VIAL SQ ONE (06:42)
[2023-12-20] MEDS ORDERED: HYDROcodone/APAP 7.5-325MG 1 EACH TAB ONE ×2 (06:42→22:29)
[2023-12-20] MEDS ORDERED: FUROSEMIDE 40 MG TAB ONE ×2 (06:43→20:37)
[2023-12-20] MEDS ORDERED: LEVOTHYROXINE 75 MCG TAB ONE (06:43)
[2023-12-20] MEDS ORDERED: NALOXONE 0.4 MG/ML 1 ML VIAL IV PRN (07:35)
[2023-12-20] MEDS ORDERED: ZINC OXIDE PASTE (Z-GUARD) 1 APPLIC TOPICAL PRN (07:36)
[2023-12-20] MEDS ORDERED: SODIUM CHLORIDE 0.65% NASAL SPRAY 44 ML BTL NASAL PRN (07:40)
[2023-12-20] MEDS ORDERED: ONDANSETRON 4 MG/2 ML VIAL ONE (08:44)
[2023-12-20] MEDS ORDERED: ASPIRIN 81 MG ONE (12:12)
[2023-12-20] MEDS ORDERED: hydrALAZINE HCL 25 MG TAB ONE ×2 (12:12→20:34)
[2023-12-20] MEDS ORDERED: MULTIVITAMINS, THERA 1 EACH TAB ONE (12:12)
[2023-12-20] MEDS ORDERED: CALCIUM ACETATE 667 MG TAB ONE (12:12)
[2023-12-20] MEDS ORDERED: CHOLECALCIFEROL 25 MCG (1000 IU) TABLET ONE (12:12)
[2023-12-20] MEDS ORDERED: CLOPIDOGREL 75 MG TAB ONE (12:13)
[2023-12-20] MEDS ORDERED: THIAMINE 100 MG TAB ONE (12:13)
[2023-12-20] MEDS ORDERED: FOLIC ACID 1 MG TAB ONE (12:13)
[2023-12-20] MEDS ORDERED: DOCUSATE 100 MG CAP ONE ×2 (12:13→20:36)
--- NOTE | 2023-12-20 15:52 | PN ---
PROGRESS NOTE DATE OF SERVICE: 12/08/2023 REASON FOR FOLLOWUP: MRSA bacteremia. INTERVAL HISTORY: The patient is afebrile. The patient is currently breathing comfortably on room air. The patient denies having any chest pain, shortness of breath, or cough. No nausea, no vomiting, no abdominal pain, and no diarrhea has been reported. PHYSICAL EXAMINATION: VITAL SIGNS: Her blood pressure is 143/76, pulse of 70, temperature of 98.7, she is 98% on room air. GENERAL DESCRIPTION: This is a middle-aged female, up in the chair, in no distress. RESPIRATORY SYSTEM: Unlabored breathing, clear to auscultation anteriorly. HEART: S1, S2. Regular rate and rhythm. ABDOMEN: Soft. No tenderness. EXTREMITIES: No edema of the feet. LABS: The patient's blood culture, 11/29/2023, has been negative. Repeat culture has been obtained. Results are currently pending. DIAGNOSTIC IMPRESSION AND PLAN: The patient with methicillin-resistant Staphylococcus aureus bacteremia, source is possible right upper extremity cellulitis. There was a concern for dialysis catheter infection. However, the blood culture from the [facility], 11/29/2023, was reported negative. We will consider a 10-day course of daptomycin on discharge, can be done through the dialysis and repeating the blood cultures from the catheter after completion of antibiotics to make sure no evidence of any recurrence of bacteremia, which if positive, Dialysis catheter will have to come out. This was discussed with the vp clinical yesterday. JERAMIE / TRIPPN: [id number] / KENYON
--- NOTE | 2023-12-20 15:52 | OP ---
OPERATIVE REPORT DATE OF SERVICE : PREOPERATIVE DIAGNOSIS: Chronic renal failure, infected catheter in right internal jugular vein. POSTOPERATIVE DIAGNOSIS: Chronic renal failure, infected catheter in right internal jugular vein. PROCEDURE: Removal of the dialysis catheter. DESCRIPTION OF PROCEDURE: The patient was seen in the room. Right side of the neck and chest was prepped and draped applied in sterile manner. 1% lidocaine plain infiltrated at the exit site of the catheter. A small incision was made at the exit site of the catheter, went circumferentially around the catheter cuff. The catheter was removed. Pressures were held. Tip of the catheter was sent for culture and sensitivity. Pressure dressing applied. Exit site of the catheter was closed with 3-0 nylon. Patient tolerated the procedure well. MMODL / IJN: [id number] /
--- NOTE | 2023-12-20 15:52 | PN ---
PROGRESS NOTE DATE OF SERVICE: 12/09/2023 LOCATION: [facility]. REASON FOR FOLLOWUP: MRSA bacteremia. INTERVAL HISTORY: The patient is afebrile. The patient is breathing comfortably. Patient denies having any chest pain, shortness of breath, or cough. No nausea. No abdominal pain. Denies any back pain to me today. PHYSICAL EXAMINATION: VITAL SIGNS: Blood pressure 129/70 with a pulse of 80, temperature 97.5. GENERAL DESCRIPTION: This is a middle-aged female, up in the bed, in no distress. RESPIRATORY SYSTEM: Unlabored breathing. Clear to auscultation anteriorly. HEART: S1, S2. Regular rate. ABDOMEN: Soft. No tenderness. EXTREMITIES: No edema of the feet. LABS: Repeat cultures so far negative. DIAGNOSTIC IMPRESSION AND PLAN: Patient with MRSA bacteremia with concern for possible right upper extremity cellulitis. Apparently. Culture from the dialysis catheter has been negative so far. We will consider a 2-week course of IV daptomycin with dialysis. Repeating the blood cultures x1 from the dialysis catheter a week after completion of antibiotic and if negative, no further workup. If positive, the catheter will have to come out. Prescription given to the case filler. MMODL / IJN: [id number] /
--- NOTE | 2023-12-20 15:53 | PN ---
Date of service 12/10/2023 PROGRESS NOTE LOCATION: [facility]. REASON FOR FOLLOWUP: MRSA bacteremia, likely related to the dialysis catheter infection. INTERVAL HISTORY: The patient is afebrile. The patient is breathing comfortably on room air. Denies any chest pain, shortness of breath, or cough. No nausea. No abdominal pain. No back pain. No diarrhea. The patient's dialysis catheter has been discontinued. PHYSICAL EXAMINATION: VITAL SIGNS: Blood pressure 136/75, pulse of 84, temperature of 98. GENERAL DESCRIPTION: This is a middle-aged female, up in the chair, in no distress. RESPIRATORY SYSTEM: Unlabored breathing, decreased breath sounds on the base. No wheeze. HEART: S1, S2. Regular rate and rhythm. ABDOMEN: Soft. No tenderness. EXTREMITIES: No edema of the feet. LABS: White count 8.21, creatinine is 2.9. DIAGNOSTIC IMPRESSION AND PLAN: Patient with methicillin-resistant Staphylococcus aureus bacteremia, initial concern for right upper extremity cellulitis, however, did have persistently positive blood culture, likely concerning for the right IJ dialysis catheter infection, which has been discontinued yesterday. Catheter tip has been obtained. We will repeat her blood cultures. Continue with daptomycin. She will be able to get a new dialysis catheter once repeat culture is negative. Echocardiogram was already negative. Plan of care discussed with admitting physician. JERAMIE / CHELLE: [id number] / KENYON
--- NOTE | 2023-12-20 15:54 | PN ---
PROGRESS NOTE DATE OF SERVICE: 12/11/2023 REASON FOR FOLLOWUP: MRSA bacteremia secondary to dialysis catheter infection. INTERVAL HISTORY: The patient is afebrile. The patient is breathing comfortably. The patient denies having any chest pain, shortness of breath, or cough. No nausea, vomiting. No abdominal pain or diarrhea. PHYSICAL EXAMINATION: VITAL SIGNS: Blood pressure 127/70, pulse of 82, temperature is 98 F GENERAL DESCRIPTION: This is a middle-aged female, up in the bed, in no distress. RESPIRATORY SYSTEM: Unlabored breathing. Clear to auscultation anteriorly. HEART: S1, S2. Regular rate and rhythm. ABDOMEN: Soft. No tenderness. LABS: White count 8.26. Repeat blood culture pending. DIAGNOSTIC IMPRESSION AND PLAN: Patient with a complicated history of MRSA bacteremia concerning for right IJ dialysis catheter infection which has been discontinued. Currently waiting for repeat blood culture as well as catheter tip culture to finalize the patient to continue daptomycin. We will discontinue Lipitor and reevaluate the patient tomorrow. Care was discussed with Nephrology. JERAMIE / CHELLE: [id number] / KENYON
--- NOTE | 2023-12-20 15:54 | PN ---
Date of service is 12/12/2023 PROGRESS NOTE REASON FOR FOLLOWUP: MRSA bacteremia, likely dialysis catheter infection. INTERVAL HISTORY: The patient is afebrile. The patient is breathing comfortably on room air. The patient denies having any chest pain, shortness of breath or cough. No nausea, no vomiting. No abdominal pain or diarrhea. No back pain. PHYSICAL EXAMINATION: VITAL SIGNS: Her blood pressure is 146/78 with a pulse of 81, temperature of 98. She is 96% on room air. GENERAL DESCRIPTION: The patient is a middle-aged female up in the chair, in no distress. RESPIRATORY SYSTEM: Unlabored breathing, decreased breath sounds on the base. No wheeze. HEART: S1, S2. Regular rate and rhythm. ABDOMEN: Soft. No tenderness. EXTREMITIES: No edema of the feet. LABORATORY DATA: Creatinine 2.7, white count of 6.8. Blood culture repeat currently pending. DIAGNOSTIC IMPRESSION AND PLAN: The patient with MRSA bacteremia, source likely dialysis catheter, which has been discontinued. Currently waiting for the repeat blood culture to finalize to be negative before we can place another dialysis catheter. Continue with daptomycin. Monitor clinical course closely. MMODL / IJN: [id number] / MTDAnn
--- NOTE | 2023-12-20 15:55 | PN ---
Date of service 12/14/2023 PROGRESS NOTE REASON FOR FOLLOWUP: MRSA bacteremia. INTERVAL HISTORY: The patient is afebrile. The patient is breathing comfortably on room air. Denies any chest pain, shortness of breath, or cough. No nausea, vomiting. No abdominal pain. No back pain. PHYSICAL EXAMINATION: VITAL SIGNS: Blood pressure 169/72 with a pulse of 95, temperature is 98.8. GENERAL DESCRIPTION: This is a middle-aged female up in the chair, in no distress. RESPIRATORY SYSTEM: Unlabored breathing. Clear to auscultation anteriorly. HEART: S1, S2. Regular rhythm. ABDOMEN: Soft, no tenderness. LABORATORY DATA: Repeat blood culture currently pending. White count 4.73, creatinine is 2.11. DIAGNOSTIC IMPRESSION AND PLAN: The patient with MRSA bacteremia, source is likely a dialysis catheter which has been discontinued. We will wait for repeat culture to finalize to be negative before placement of the new dialysis catheter. Continue with daptomycin. MMODL / IJN: [id number] / MTDD
--- NOTE | 2023-12-20 15:55 | PN ---
PROGRESS NOTE DATE OF SERVICE: 12/15/2023 REASON FOR FOLLOWUP: MRSA bacteremia. INTERVAL HISTORY: The patient is afebrile. The patient is breathing comfortably on room air. No chest pain, shortness of breath, or cough. No nausea or vomiting. No abdominal pain. No diarrhea. PHYSICAL EXAMINATION: VITAL SIGNS: Blood pressure 134/65, pulse of 79, temperature of 97.7, sating 93% on room air. GENERAL DESCRIPTION: This is a middle-aged female, up in the chair, in no distress. RESPIRATORY SYSTEM: Unlabored breathing. Clear to auscultation anteriorly. HEART: S1, S2. Regular rate and rhythm. ABDOMEN: Soft. No tenderness. LABORATORY DATA: White count is 4.7, creatinine is 2.13. Repeat blood culture currently pending. DIAGNOSTIC IMPRESSION AND PLAN: The patient with MRSA bacteremia, source is likely dialysis catheter infection which has been discontinued. Currently waiting for repeat cultures, which if negative, she will be able to get another dialysis catheter. For now, continue daptomycin. MMODL / IJN: [id number] /
--- NOTE | 2023-12-20 15:55 | PN ---
Date of service 12/13/2023 PROGRESS NOTE REASON FOR FOLLOWUP: MRSA bacteremia, likely dialysis catheter infection. INTERVAL HISTORY: The patient is afebrile. The patient is breathing comfortably on room air. The patient denies having any chest pain, shortness of breath, or cough. No nausea, no vomiting. No abdominal pain or diarrhea. PHYSICAL EXAMINATION: VITAL SIGNS: Blood pressure 165/89, pulse of 79, temperature 97.6. GENERAL DESCRIPTION: This is a middle-aged female, up in the chair, in no distress. RESPIRATORY: Unlabored breathing. Clear to auscultation anteriorly. HEART: S1, S2. Regular rate and rhythm. ABDOMEN: Soft. No tenderness. LABORATORY DATA: White count is 5.95, creatinine 2.7. DIAGNOSTIC IMPRESSION AND PLAN: The patient with MRSA bacteremia, source likely right IJ dialysis catheter infection, it has been discontinued. We are awaiting for repeat culture to finalize. If negative, she will get another PermCath. Care discussed with the Nephrology. MMODL / IJN: [id number] / KENYON
--- NOTE | 2023-12-20 15:56 | PN ---
PROGRESS NOTE DATE OF SERVICE: 12/16/2023 REASON FOR FOLLOWUP: MRSA bacteremia secondary to dialysis catheter infection. INTERVAL HISTORY: The patient is afebrile. The patient is breathing comfortably. The patient denies having any chest pain, shortness of breath, or cough. No nausea or vomiting. No abdominal pain, no diarrhea. OBJECTIVE: VITAL SIGNS: Blood pressure 153/89, pulse of 70, temperature 97.6. GENERAL DESCRIPTION: This is a middle-aged female, up in the bed, in no distress. RESPIRATORY SYSTEM: Unlabored breathing, clear to auscultation anteriorly. HEART: S1, S2. Regular rate and rhythm, soft. No tenderness. LABORATORY DATA: Creatinine is 2.27, white count is 4.48, repeat culture still pending. DIAGNOSTIC IMPRESSION AND PLAN: Admit the patient with MRSA bacteremia source with likely dialysis catheter which has been discontinued according to Nephrology. The patient does not need any further dialysis and no plan for PermCath placement. We will consider 4 more doses of IV daptomycin through peripheral IV and close outpatient followup. Will recommend obtaining blood cultures x1 set a week or 10 days after completion of antibiotic admission. No evidence of any recurrence of bacteremia. MMODL / IJN: [id number] /
--- NOTE | 2023-12-20 15:57 | CONS ---
CONSULTATION HISTORY OF PRESENT ILLNESS: The patient has history of chronic renal failure. The patient came with high creatinine and high potassium, consulted for placement of a dialysis catheter . This patient had a right IJ catheter placed in the past, which has been removed in the past. PHYSICAL EXAMINATION: GENERAL: The patient was seen in her room. NECK: Supple. CHEST: Few crackles at lung bases. ABDOMEN: Soft, nontender. EXTREMITIES: Femorals are 1+ bilaterally. LABORATORY DATA: The patient has high BUN, creatinine, and potassium. PLAN: Placement of the dialysis catheter. Risks and complications discussed. MMODL / IJN: [id number] /
--- NOTE | 2023-12-20 15:57 | PN ---
Date of service 12/18/2023 PROGRESS NOTE LOCATION: [facility]. REASON FOR FOLLOWUP: MRSA bacteremia. INTERVAL HISTORY: The patient is afebrile. The patient is breathing comfortably. No chest pain, shortness of breath, or cough. No nausea. No vomiting. No abdominal pain. No diarrhea. PHYSICAL EXAMINATION: VITAL SIGNS: Blood pressure 133/82 with a pulse of 70, temperature 97.7. GENERAL DESCRIPTION: This is a middle-aged female, up in the chair, in no distress. RESPIRATORY SYSTEM: Unlabored breathing. Decreased breath sounds in the bases. No wheeze. HEART: S1, S2. Regular rate and rhythm. ABDOMEN: Soft, no tenderness. LABS: White count is 4.68. Creatinine is 2.3. Blood culture repeat on 12/09 has been negative so far. DIAGNOSTIC IMPRESSION AND PLAN: Patient with methicillin-resistant Staphylococcus aureus bacteremia, concerning for PermCath infection which has been discontinued. The patient seems to have cleared her bacteremia. Continue daptomycin. She is cleared to go for a pump catheter placement. Discussed with Nephrology. MMODL / IJN: [id number] / KENYON
--- NOTE | 2023-12-20 15:57 | OP ---
OPERATIVE REPORT DATE OF SERVICE : PREOPERATIVE DIAGNOSIS: Acute chronic renal failure with high potassium. POSTOPERATIVE DIAGNOSIS: Acute chronic renal failure with high potassium. PROCEDURES: 1. Attempted to place a dialysis catheter, right jugular approach. 2. Placement of dialysis catheter, left jugular approach. DESCRIPTION OF PROCEDURE: The patient was brought to the cath lab tech. Right side of the chest and neck was prepped and drapes applied in sterile manner. 1% lidocaine infiltrated in the neck and chest area. Ultrasound-guided micropuncture introduced in right jugular vein. Micropuncture guidewire was passed and 4-Kazakh dilator advanced on top of the guidewire. 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 At that time, we decided to go on the left side. Left side of the neck and chest was prepped and drapes applied in sterile manner. 1% lidocaine infiltrated in neck area. Ultrasound-guided micropuncture introduced in left jugular vein, micropuncture guidewire was passed. Then, the guidewire was passed which was parked in the inferior vena cava. Then, a tunnel was created. Through the tunnel, we brought 23 cm dialysis catheter. Under fluoroscopic control, dilator advanced on top of the guidewire, then we placed a sheath on top of the guidewire. Through the sheath, we placed a dialysis catheter. Tip of the catheter in superior vena cavoatrial junction, flushed with heparin saline and hep-locked. Incision was closed with Vicryl and nylon. Dressing applied. The patient tolerated the procedure well. MMODL / IJN: [id number] /
--- NOTE | 2023-12-20 15:57 | PN ---
PROGRESS NOTE DATE OF SERVICE: 12/17/2023 LOCATION: [facility]. REASON FOR FOLLOWUP: MRSA bacteremia. INTERVAL HISTORY: The patient is afebrile. The patient is currently breathing comfortably on room air. No chest pain, shortness of breath, or cough. No nausea, no vomiting. No abdominal pain or diarrhea. PHYSICAL EXAMINATION: VITAL SIGNS: Blood pressure 147/79, pulse of 74, temperature 97.8. GENERAL DESCRIPTION: The patient is a middle-aged female, up in the chair, in no distress. RESPIRATORY: Unlabored breathing. Clear to auscultation. HEART: S1, S2. Regular rate. ABDOMEN: Soft, no tenderness. EXTREMITIES: No edema in the feet. LABORATORY DATA: Potassium is elevated. DIAGNOSTIC IMPRESSION AND PLAN: Patient with MRSA bacteremia concerning for dialysis catheter infection, has been discontinued. Repeat cultures are pending. Patient is covered with daptomycin and monitor clinical course closely. MMODL / IJN: [id number] /
--- NOTE | 2023-12-20 15:58 | PN ---
PROGRESS NOTE DATE OF SERVICE: 12/19/2023 LOCATION: [facility]. REASON FOR FOLLOWUP: MRSA bacteremia. INTERVAL HISTORY: The patient is afebrile. The patient did get a dialysis catheter in the left IJ. The patient denies having any chest pain, shortness of breath, or cough. No nausea, no vomiting. No abdominal pain. No diarrhea. PHYSICAL EXAMINATION: VITAL SIGNS: Her blood pressure 145/76, pulse of 67, temperature 97.8, she is 96% on room air. GENERAL DESCRIPTION: This is a middle-aged female, up in the bed, in no distress. RESPIRATORY SYSTEM: Unlabored breathing and clear to auscultation anteriorly. HEART: S1, S2. Regular rate and rhythm. ABDOMEN: Soft. No tenderness. LABORATORY DATA: Creatinine is 2.60. White count 4.68. DIAGNOSTIC IMPRESSION AND PLAN: The patient with methicillin-resistant Staphylococcus aureus bacteremia secondary to PermCath infection which has been discontinued. Repeat blood culture negative. She did get a new left IJ PermCath. Continue daptomycin and monitor clinical course closely. MMODL / IJN: [id number] /
[2023-12-20] MEDS ORDERED: MELATONIN 5 MG TABLET ONE (20:35)
[2023-12-21] MEDS ORDERED: ONDANSETRON 4 MG/2 ML VIAL ONE ×5 (00:47→22:39)
[2023-12-21] MEDS ORDERED: MORPHINE SULFATE 2 MG/ML SYRINGE ONE ×3 (02:53→22:38)
[2023-12-21] MEDS ORDERED: LEVOTHYROXINE 75 MCG TAB ONE (05:36)
[2023-12-21] MEDS ORDERED: FUROSEMIDE 40 MG TAB ONE ×3 (05:36→22:38)
[2023-12-21] MEDS ORDERED: HYDROcodone/APAP 7.5-325MG 1 EACH TAB ONE ×2 (05:36→19:48)
[2023-12-21] MEDS ORDERED: INSULIN ASPART (NovoLOG) 100 UNIT/ML VIAL SQ ONE ×3 (06:23→17:13)
[2023-12-21] MEDS ORDERED: CALCIUM ACETATE 667 MG TAB ONE ×3 (08:06→17:12)
[2023-12-21] MEDS ORDERED: MULTIVITAMINS, THERA 1 EACH TAB ONE (08:07)
[2023-12-21] MEDS ORDERED: hydrALAZINE HCL 25 MG TAB ONE ×2 (08:07→22:37)
[2023-12-21] MEDS ORDERED: CHOLECALCIFEROL 25 MCG (1000 IU) TABLET ONE (08:07)
[2023-12-21] MEDS ORDERED: ASPIRIN 81 MG ONE (08:07)
[2023-12-21] MEDS ORDERED: CLOPIDOGREL 75 MG TAB ONE (08:08)
[2023-12-21] MEDS ORDERED: THIAMINE 100 MG TAB ONE (08:08)
[2023-12-21] MEDS ORDERED: PANTOPRAZOLE 40 MG TABLET PO ONE (08:08)
[2023-12-21] MEDS ORDERED: DOCUSATE 100 MG CAP ONE ×2 (08:08→22:38)
[2023-12-21] MEDS ORDERED: FOLIC ACID 1 MG TAB ONE (08:09)
[2023-12-21] MEDS ORDERED: MELATONIN 5 MG TABLET ONE (22:38)
[2023-12-22] MEDS ORDERED: HYDROcodone/APAP 7.5-325MG 1 EACH TAB ONE (02:14)
[2023-12-22] MEDS ORDERED: ONDANSETRON 4 MG/2 ML VIAL IVP PRN (03:42)
[2023-12-22 04:00] LABS: ALT 12 U/L (4-34); AST 27 U/L (14-36); African American GFR (CKD) 49 (>60 ml/min/1.73 sqM); Albumin 3.2 g/dL (3.5-5.0); Albumin/Globulin Ratio 0.9; Alkaline Phosphatase 162 U/L (38-126); Anion Gap 3 mmol/L; Blood Urea Nitrogen 16 mg/dL (7-17); Calcium 8.3 mg/dL (8.4-10.2); Carbon Dioxide 28 mmol/L (22-30); Chloride 102 mmol/L (98-107); Globulin 3.7 g/dL; Glucose 97 mg/dL (74-99); Non-African American GFR(CKD) 42 (>60 ml/min/1.73 sqM); Potassium 4.2 mmol/L (3.5-5.1); Sodium 133 mmol/L (137-145); Total Bilirubin 0.8 mg/dL (0.2-1.3); Total Protein 6.9 g/dL (6.3-8.2)
[2023-12-22 04:12] LABS: Anisocytosis Slight; Basophils % (A) 1 %; Eosinophils # (A) 0.2 k/uL (0-0.7); Eosinophils % (A) 4 %; HCT 23.3 % (34.0-46.0); Hypochromasia Marked; Lymphocytes # (A) 0.8 k/uL (1.0-4.8); Lymphocytes % (A) 14 %; MCH 27.2 pg (25.0-35.0); MCHC 29.6 g/dL (31.0-37.0); MCV 91.7 fL (80.0-100.0); Mean Platelet Volume 8.6; Monocytes # (A) 0.5 k/uL (0-1.0); Monocytes % (A) 8 %; Neutrophils # (A) 3.8 k/uL (1.3-7.7); Neutrophils % (A) 71 %; Platelet Count 258 k/uL (150-450); Poikilocytosis Slight; RBC 2.54 m/uL (3.80-5.40); WBC 5.4 k/uL (3.8-10.6)
[2023-12-22 04:17] LABS: HGB 6.9 gm/dL (11.4-16.0)
[2023-12-22] MEDS: MORPHINE SULFATE 2 MG/ML SYRINGE IVP PRN (05:16)
[2023-12-22 05:54] LABS: Glucose,Whole Blood 124 mg/dL (70-110)
[2023-12-22] MEDS: HYDROcodone/APAP 7.5-325MG 1 EACH TAB PO PRN (06:22)
[2023-12-22] MEDS: metOLazone 5 MG TAB PO SCH (06:39)
[2023-12-22] MEDS: FUROSEMIDE 40 MG TAB PO SCH (06:39)
[2023-12-22] MEDS: DAPTOmycin 350 MG in SODIUM CHLORIDE 0.9% 50 ML IVPB SCH (06:39)
--- NOTE | 2023-12-22 09:54 | P.PN ---
Subjective Progress Note Date: 12/22/23 HISTORY OF PRESENT ILLNESS: This is a 58-year-old female with a previous medical history signif icant for coronary artery disease status post PCI of the RCA 2023 with ischemic cardiomyopathy, hypertension and hypertensive cardiovascular disease, hyperlipidemia, diabetes mellitus type 2 uncontrolled, chronic kidney disease stage IIIb, anemia of chronic kidney disease, history of COPD, history of severe pulmonary hypertension, history of fracture of the medial lateral malleolus, chronic wound to the right heel that has been healed, patient has been followed by ct Tracy Morris and she was seen yesterday on round and she was complaining of increased weight gain with increased anasarca with increased fluid in bilateral lower extremity all the way up to the thigh all the way up to the abdominal area, was complaining of increased shortness of breath, she was on 2 L nasal cannula her oxygen saturation was 99%, patient was quite anxious and frantic at the [facility] [facility], she was directed to go to the emergency department for evaluation of acute and chronic systolic heart failure with worsening renal function due to cardiorenal syndrome and consultation was placed for cardiology and nephrology. 11/21: Patient is seen today in follow-up. She has had a dialysis catheter placed today by Dr. Dale. She remains on Lasix drip per nephrology. Extremity and abdominal edema are improving, patient appears to be better today, she has been been started on Solu-Medrol 60 mg IV push every 8 hours yesterday along with nebulized treatment, continue oxygen support, pulmonary evaluation is appreciated, continue to monitor the patient input and output and daily weight, she is less anxious today as she was started on Xanax yesterday as needed, I believe the nephrology is planning for the patient to go for hemodialysis permacatheter was placed by Dr. Dale early in the right internal jugular vein. I will follow-up with the patient very closely. Her prognosis continue to be guarded her daughter and her granddaughter and they were updated yesterday and they were aware that the patient may go for dialysis at this point. 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 day per delinquency prevention social worker Labs reviewed and looks improving leukocytosis, hemoglobin stable at 8.0 creatinine 2.3 and potassium 5.8 Lisinopril remains on hold 11/23 Patient awake alert No back pain She is getting hemodialysis Complains from pain all over her body 11/24: Patient sitting up in chair getting ready to get her hemodialysis for the permacatheter is complaining of a lot of pain all over her body, she has been getting Mendenhall by mouth, she is asking for her morphine sulfate she will be given 2 mg IV push at this time for further control of her pain prior to her hemodialysis, patient appears to be somewhat emotional at this time, she appears a lot better since she was started on dialysis, she is not as edematous as she was before, she continues to have some edema both lower extremities not this bad she appears to have some edema in the right upper extremity we will continue to monitor very closely. Continue current treatment plan, the plan is to transfer the patient back to [facility] when she has a slot for outpatient dialysis. 11/25: Patient sitting up in bed in no apparent distress, she is complaining of increased pain and swelling of the right upper extremity, she continues to have minimal shortness of breath, she continues to have some swelling both lower extremities, she did have dialysis yesterday, will are going to order a venous Doppler of the right upper extremity rule out any deep venous thrombosis, we will start the patient on K-pad's, start the patient on IV antibiotic in the form of cefazolin 2 g IV piggyback every 12 hours, I will obtain blood cultures prior to the antibiotic, we will monitor the patient very closely, await the final result of the ultrasound and we will see how the patient progress over the next 1 or 2 days as far as the swelling of the right upper extremity. 11/26: Patient is laying down in bed does not appear to be in acute distress, she appears to be significantly drowsy, yet she is asking for pain management, we will discontinue morphine completely, continue patient on Mendenhall as needed, monitor the patient's symptoms very closely, patient blood culture showed evidence of MRSA, switch to Cubicin 350 mg of piggyback every 48 hours, infectious disease consultation was obtained, patient did have recent permacatheter placement for hemodialysis, will continue to follow-up with the patient very closely, her right arm appears to be better, venous Doppler did not show evidence of acute DVT, I will follow-up with the patient very closely. The plan is for the patient to be transferred back to [facility] she already had assignment for hemodialysis as an outpatient in [place]. 11/27: Patient sitting up in bed in no apparent distress, she is more awake and more alert today, she denies any fever or chills, she did receive dialysis yesterday, she has no abdominal pain, nausea vomiting or diarrhea, she was seen in consultation by infectious disease due to MRSA bacteremia, continue patient on daptomycin 350 mg IV piggyback every 48 hours, monitor the patient very closely, echocardiogram was ordered results still pending at the time of dictation, workup for bacteremia still ongoing, likely the patient will be able to discharge hopefully in the next 24 hours back to [facility]. 12/21: Patient is sitting up in a chair and open in distress, she continues to have some bleeding from the permacatheter that was placed in the left internal jugular vein, discontinue Plavix at this time, monitor the patient hemoglobin very closely her hemoglobin is down to 6.9, we will give the patient 1 unit of packed red blood cells, then followed by Lasix 80 mg IV push x 1, patient is scheduled to go for dialysis tomorrow morning, and then she can be discharged to [facility] tomorrow in the afternoon with dialysis to be set up at [place] area as the patient and family want her to go to the [facility] to send clear, patient has no chest pain at this time, she has no shortness of breath, she denies any abdominal pain, she appears to be quite depressed at this time, because of her current situation and she wanted to get out of the hospital as soon as possible. REVIEW OF SYSTEMS: Constitutional: No documented fever, no chills, no night sweats. No weight change. Positive for generalized weakness, fatigue or lethargy. She states she is feeling much better today she continues to have shortness of breath but improved. No daytime sleepiness. EENT: No headache. No blurred vision or double vision, no loss of vision. No loss of Hearing, no ringing in the ears, no dizziness. No nasal drainage or congestion. No epistaxis. No sore throat. Lungs: Positive for less shortness of breath, no cough, no sputum production. No wheezing. Reports dyspnea with activity. Cardiovascular: No chest pain, no lower extremity edema. No palpitations. No paroxysmal nocturnal dyspnea. No orthopnea. No lightheadedness or dizziness. No syncopal episodes. Abdominal: Reports no abdominal pain. No nausea, vomiting. No diarrhea. No constipation. No bloody or tarry stools reports loss of appetite. Genitourinary: No dysuria, increased frequency, urgency. No urinary retention. Musculoskeletal: No myalgias. No muscle weakness, positive for gait dysfunction, positive for frequent falls. Positive for back pain and neck pain. Integumentary: Right heel scab, no lesions. No rash or pruritus. No unusual bruising. Positive for change in hair or nails.right upper extremity with er ythema and pain and edema Neurologic: No aphasia. No facial droop. No change in mentation. No head injury. No headache. No paralysis. No paresthesia. Psychiatric: positive for depression. Positive anxiety. No mood swings. Endocrine: No abnormal blood sugars. No weight change. PHYSICAL EXAMINATION: General: 58-year-old female sitting up in bed in no respiratory distress HEENT: Head is atraumatic, normocephalic, pupils were equal round reactive to light and recommendation, extraocular muscle movement were intact, sclera nonicteric, conjunctivae were pale, mucous membranes of the mouth are somewhat dry. Neck: Supple, Increased JVP, normal carotid upstroke bilaterally, no lym phadenopathy. Left IJ permacatheter With pressure dressing. Chest: Decreased breath sounds at the bases, few rhonchi, no expiratory wheezes, no chest wall tenderness, no intercostal retractions. Decreased tactile fremitus at the lower thirds of both lung bowen. Heart: First heart sound is normal, second heart sound is normal there is systolic ejection murmur 2/6 located in the left sternal border. Abdomen: Soft, nontender, nondistended, positive bowel sounds Extremities: There is +2 edema no calf tenderness DP +1 bilaterally, right heel scab, there is boot in the right lower extremity, Neurologic examination: Patient is awake alert and oriented x3, cranial nerves II-12 appear grossly intact, muscle power were 4 out of 5 in upper extremities and 3 out of 5 in bilateral lower extremities, deep tendon reflexes normal bilaterally. ASSESSMENT AND PLAN: 1. Right upper extremity cellulitis with MRSA bacteremia that was persistent for quite some time, patient is currently on daptomycin infectious diseases following, repeated blood cultures are negative. Patient should be done with the daptomycin tomorrow. 2. Acute on chronic systolic heart failure due to ischemic cardiomyopathy. Continue with hemodialysis as scheduled, continue patient on hydralazine 25 mg orally twice every day, monitor the patient very closely.. 3. Acute on chronic kidney disease stage 4 due to cardiorenal syndrome patient was restarted on hemodialysis at this time, and she is doing better.. 4. Acute hypoxemic respiratory failure due to acute on chronic systolic heart failure as well as acute exacerbation of COPD. ,continue DuoNeb 3 manipulation 4 times every day, continue oxygen support, continue to monitor input and output and daily weight. 5. Coronary artery disease status post PCI of the RCA. Continue patient on aspirin 81 mg once every day, discontinue Plavix if the patient continue to have some bleeding from the port, vascular surgery consulted, patient also will be Off atorvastatin due to daptomycin. 6. Hypertension and hypertensive cardiovascular disease. Continue hydralazine 25 mg orally twice every day, monitor the patient blood pressure very closely. 7. Mixed hyperlipidemia. Atorvastatin has been on hold due to daptomycin. 8. Diabetes mellitus type 2. Continue patient on sliding scale insulin. 9. Restless leg syndrome. Continue ropinirole 2 mg orally at bedtime. 10. Anemia of chronic kidney disease. Continue patient on Aranesp 40 mcg subcutaneously every week. 11. Hypothyroidism. Continue levothyroxine 75 mcg orally once every day. 12. COPD without exacerbation, continue monitor the patient very closely. Patient is not requiring the oxygen at this time. 13. Chronic hypoxemic respiratory failure due to combination of nonischemic ca rdiomyopathy and COPD. Patient is not requiring any oxygen at this point in time. 14. Subacute fracture of the medial and lateral malleolus currently in boot no surgical intervention is planned 15. GERD. Continue pantoprazole 40 mg once every day. 16. Medical debility. Plan for the patient to go to [facility] for physical therapy rehabilitation. 17. DVT prophylaxis. Was taken off heparin due to epistaxis as well as bleeding from the permacatheter. 18. GI prophylaxis. Continue Protonix 40 mg once every day. 19. Acute blood loss anemia due to recurrent bleeding from the left IJ permacatheter type and cross and transfuse 1 unit of packed red blood cells, give the patient 80 mg of Lasix posttransfusion and the patient will go for hemodialysis tomorrow morning. Repeat CBC tomorrow morning. 21. Disposition: Transfer the patient back to [facility] tomorrow morning. Objective - Vital Signs Vital signs: Vital Signs Temp 97.6 F 12/22/23 07:45 Pulse 66 12/22/23 07:45 Resp 17 12/22/23 07:45 BP 109/66 12/22/23 07:45 Pulse Ox 93 L 12/22/23 08:07 FiO2 - Labs CBC & Chem 7: 12/22/23 02:40 12/22/23 02:40 Labs: Abnormal Lab Results - Last 24 Hours (Table) 12/22/23 12/22/23 12/22/23 Range/Units 02:40 02:40 05:22 RBC 2.54 L (3.80-5.40) m/uL Hgb 6.9 L* (11.4-16.0) gm/dL Hct 23.3 L (34.0-46.0) % MCHC 29.6 L (31.0-37.0) g/dL RDW 18.0 H (11.5-15.5) % Lymphocytes # 0.8 L (1.0-4.8) k/uL Sodium 133 L (137-145) mmol/L Creatinine 1.37 H (0.52-1.04) mg/dL POC Glucose (mg/dL) (70-110) mg/dL Calcium 8.3 L (8.4-10.2) mg/dL Alkaline Phosphatase 162 H (38-126) U/L Albumin 3.2 L (3.5-5.0) g/dL Crossmatch See Detail 12/22/23 Range/Units 05:52 RBC (3.80-5.40) m/uL Hgb (11.4-16.0) gm/dL Hct (34.0-46.0) % MCHC (31.0-37.0) g/dL RDW (11.5-15.5) % Lymphocytes # (1.0-4.8) k/uL Sodium (137-145) mmol/L Creatinine (0.52-1.04) mg/dL POC Glucose (mg/dL) 124 H (70-110) mg/dL Calcium (8.4-10.2) mg/dL Alkaline Phosphatase (38-126) U/L Albumin (3.5-5.0) g/dL Crossmatch
[2023-12-22] MEDS: FUROSEMIDE 10 MG/ML 4 ML VIAL ONE ×9 (10:54→11:33)
[2023-12-22] MEDS: MORPHINE SULFATE 2 MG/ML SYRINGE ONE ×14 (10:59→11:48)
[2023-12-22] MEDS: FUROSEMIDE 40 MG TAB ONE ×9 (11:11→11:44)
[2023-12-22] MEDS: HYDROcodone/APAP 7.5-325MG 1 EACH TAB ONE ×9 (11:18→11:47)
--- NOTE | 2023-12-22 11:25 | P.PN ---
Subjective Patient is seen in follow-up for end-stage renal disease. She is maintained on hemodialysis on Saturday schedule. No problems with dialysis yesterday. Hemoglobin 6.9 today. No active bleeding. Vital signs are stable. General: No acute distress. HEENT: Head exam is unremarkable. LUNGS: No audible rhonchi or wheezes. HEART: Rate and Rhythm are regular. ABDOMEN: Nontender. EXTREMITITES: 1+ edema. Objective - Vital Signs Vital signs: Vital Signs Temp 97.6 F 12/22/23 07:45 Pulse 66 12/22/23 07:45 Resp 17 12/22/23 07:45 BP 109/66 12/22/23 07:45 Pulse Ox 93 L 12/22/23 08:07 FiO2 - Labs CBC & Chem 7: 12/22/23 02:40 12/22/23 02:40 Labs: Abnormal Lab Results - Last 24 Hours (Table) 12/22/23 12/22/23 12/22/23 Range/Units 02:40 02:40 05:22 RBC 2.54 L (3.80-5.40) m/uL Hgb 6.9 L* (11.4-16.0) gm/dL Hct 23.3 L (34.0-46.0) % MCHC 29.6 L (31.0-37.0) g/dL RDW 18.0 H (11.5-15.5) % Lymphocytes # 0.8 L (1.0-4.8) k/uL Sodium 133 L (137-145) mmol/L Creatinine 1.37 H (0.52-1.04) mg/dL POC Glucose (mg/dL) (70-110) mg/dL Calcium 8.3 L (8.4-10.2) mg/dL Alkaline Phosphatase 162 H (38-126) U/L Albumin 3.2 L (3.5-5.0) g/dL Crossmatch See Detail 12/22/23 Range/Units 05:52 RBC (3.80-5.40) m/uL Hgb (11.4-16.0) gm/dL Hct (34.0-46.0) % MCHC (31.0-37.0) g/dL RDW (11.5-15.5) % Lymphocytes # (1.0-4.8) k/uL Sodium (137-145) mmol/L Creatinine (0.52-1.04) mg/dL POC Glucose (mg/dL) 124 H (70-110) mg/dL Calcium (8.4-10.2) mg/dL Alkaline Phosphatase (38-126) U/L Albumin (3.5-5.0) g/dL Crossmatch Assessment and Plan Plan: Assessment: 1. Acute kidney injury secondary to ATN secondary to cardiorenal syndrome. Hemodialysis dependent. Has permacath. 2. Volume overload. 3. Anemia of chronic kidney disease with a component of acute blood loss maintained on Aranesp. Scheduled for blood transfusion today. 4. Chronic any disease mineral bone disease maintained on PhosLo. 5. MRSA bacteremia status post line holiday. On IV antibiotics. ID following. Plan: Hemodialysis tomorrow. Stop metolazone. Maintain Lasix. IV DDAVP x 1 dose today. Add 1500 cc fluid restriction. Monitor for renal recovery outpatient.
[2023-12-22] MEDS: FUROSEMIDE 10 MG/ML 10 ML VIAL ONE ×2 (11:28)
[2023-12-22] MEDS: MORPHINE SULFATE 4 MG/ML SYRINGE ONE ×5 (11:30→11:42)
[2023-12-22 11:43] LABS: Glucose,Whole Blood 248 mg/dL (70-110)
[2023-12-22] MEDS: FUROSEMIDE 10 MG/ML 10 ML VIAL IV STA ×2 (11:50→14:41)
[2023-12-22] MEDS: DESMOPRESSIN ACETATE 15 MCG in SODIUM CHLORIDE 0.9% 50 ML IVPB ONE (14:43)
[2023-12-22 16:21] LABS: Glucose,Whole Blood 104 mg/dL (70-110)
--- NOTE | 2023-12-22 21:03 | P.PN ---
Subjective Progress Note Date: 12/22/23 Principal diagnosis: Reason for follow-up is MRSA bacteremia Patient is a 58-year-old female with a past medical history significant for diabetes mellitus hypertension hyperlipidemia diabetic heel ulcer and infection that seem to have healing history of end-stage renal disease on dialysis patient has been brought to the hospital for swelling patient noticed to have worsening of her kidney function did have a right IJ dialysis catheter placement, patient was noticed to have swelling to the right upper extremity previously did have a IV to the right antecubital fossa from 11/20/2023 to 11/22/2023 did have evidence of persistent bacteremia likely due to dialysis catheter which was discontinued subsequently patient did clear her bacteremia I did have a new left IJ dialysis catheter On today's evaluation that is 12/22/2023,the patient denies any fever or any chills, patient is breathing comfortably on room air, the patient denies chest pain shortness of breath and no significant cough, patient denies abdominal pain, no nausea vomiting or diarrhea. Patient did have white count of 5.4 hemoglobin is 6.9 creatinine is 1.37 Objective - Vital Signs Vital signs: Vital Signs Temp 97.6 F 12/22/23 14:39 Pulse 69 12/22/23 14:39 Resp 18 12/22/23 14:39 BP 138/60 12/22/23 14:39 Pulse Ox 98 12/22/23 14:39 FiO2 Intake & Output 12/21/23 12/22/23 12/22/23 18:59 06:59 18:59 Intake Total 310 Balance 310 Intake: Blood Product 310 Rc As-1 Unit 310 [id number] Other: Voiding Method Toilet - Exam GENERAL DESCRIPTION: Middle-aged female up in bed in no distress RESPIRATORY SYSTEM: Unlabored breathing , decreased breath sounds at bases HEART: S1 S2 regular rate and rhythm , ABDOMEN: Soft , no tenderness EXTREMITIES: No edema feet - Labs CBC & Chem 7: 12/22/23 02:40 12/22/23 02:40 Labs: Abnormal Lab Results - Last 24 Hours (Table) 12/22/23 12/22/23 12/22/23 Range/Units 02:40 02:40 05:22 RBC 2.54 L (3.80-5.40) m/uL Hgb 6.9 L* (11.4-16.0) gm/dL Hct 23.3 L (34.0-46.0) % MCHC 29.6 L (31.0-37.0) g/dL RDW 18.0 H (11.5-15.5) % Lymphocytes # 0.8 L (1.0-4.8) k/uL Sodium 133 L (137-145) mmol/L Creatinine 1.37 H (0.52-1.04) mg/dL POC Glucose (mg/dL) (70-110) mg/dL Calcium 8.3 L (8.4-10.2) mg/dL Alkaline Phosphatase 162 H (38-126) U/L Albumin 3.2 L (3.5-5.0) g/dL Crossmatch See Detail 12/22/23 12/22/23 Range/Units 05:52 11:41 RBC (3.80-5.40) m/uL Hgb (11.4-16.0) gm/dL Hct (34.0-46.0) % MCHC (31.0-37.0) g/dL RDW (11.5-15.5) % Lymphocytes # (1.0-4.8) k/uL Sodium (137-145) mmol/L Creatinine (0.52-1.04) mg/dL POC Glucose (mg/dL) 124 H 248 H (70-110) mg/dL Calcium (8.4-10.2) mg/dL Alkaline Phosphatase (38-126) U/L Albumin (3.5-5.0) g/dL Crossmatch Assessment and Plan (1) Bacteremia due to methicillin resistant Staphylococcus aureus Current Visit: Yes Status: Acute Code(s): R78.81 - BACTEREMIA; B95.62 - MET HICILLIN RESIS STAPH INFCT CAUSING DISEASES CLASSD ELSR SNOMED Code(s): 77249979577539729 (2) Right arm cellulitis Current Visit: Yes Status: Acute Code(s): L03.113 - CELLULITIS OF RIGHT UPPER LIMB SNOMED Code(s): 53965562568504034 Plan: 1patient with MRSA bacteremia questionably to the right upper extremity cellu litis and she was noted to have some swelling and redness to the right upper extremity subsequently did have persistent bacteremia concerning for dialysis catheter infection which has been discontinued patient did clear her bacteremia and have a new left IJ catheter 2patient to continue with the daptomycin to finish a 2-week course from negative blood culture Dictation was produced using [employer] dictation software. please excuse any grammatical, word or spelling errors. Time with Patient: Less than 30
[2023-12-22 21:14] LABS: Glucose,Whole Blood 199 mg/dL (70-110)
[2023-12-23 06:22] LABS: Glucose,Whole Blood 218 mg/dL (70-110)
[2023-12-23 09:11] LABS: HCT 26.7 % (37.2-46.3); HGB 7.7 g/dL (12.0-15.0); MCHC 28.8 g/dL (32.0-37.0); MCV 93.7 FL (80.0-97.0); Mean Platelet Volume 11.2 FL (9.5-12.2); NRBC Per 100 WBC 0 X 10*3/uL (0.00-0.01); Platelet Count 241 X 10*3/uL (140-440); RBC 2.85 X 10*6/uL (4.10-5.20); RDW 18.6 % (11.5-14.5); WBC 6.26 X 10*3/uL (4.50-10.00)
--- NOTE | 2023-12-23 10:43 | P.PN ---
Subjective Patient is seen in follow-up for end-stage renal disease. She is maintained on hemodialysis on Saturday schedule. Tolerating dialysis well. Hemoglobin 7.7 this morning. Denies chest pain or shortness of breath. Vital signs are stable. General: No acute distress. HEENT: Head exam is unremarkable. LUNGS: No audible rhonchi or wheezes. HEART: Rate and Rhythm are regular. ABDOMEN: Nontender. EXTREMITITES: 1+ edema. Objective - Vital Signs Vital signs: Vital Signs Temp 97.8 F 12/23/23 08:00 Pulse 69 12/23/23 08:00 Resp 18 12/23/23 08:00 BP 160/91 12/23/23 08:00 Pulse Ox 95 12/23/23 08:00 FiO2 Intake & Output 12/22/23 12/23/23 12/23/23 18:59 06:59 18:59 Intake Total 600 Balance 600 Intake: Intake, IV Titration 50 Amount Desmopressin Acetate 15 50 mcg In Sodium Chloride 0. 9% 50 ml @ 200 mls/hr IVPB ONCE ONE Rx#: [id number] Oral 240 Blood Product 310 Rc As-1 Unit 310 [id number] Other: Voiding Method Toilet # Voids 2 0 # Bowel Movements 1 - Labs CBC & Chem 7: 12/23/23 05:39 12/22/23 02:40 Labs: Abnormal Lab Results - Last 24 Hours (Table) 12/22/23 12/22/23 12/22/23 Range/Units 05:22 11:41 21:12 RBC (4.10-5.20) X 10*6/uL Hgb (12.0-15.0) g/dL Hct (37.2-46.3) % MCHC (32.0-37.0) g/dL RDW (11.5-14.5) % POC Glucose (mg/dL) 248 H 199 H (70-110) mg/dL Crossmatch See Detail 12/23/23 12/23/23 Range/Units 05:39 06:21 RBC 2.85 L (4.10-5.20) X 10*6/uL Hgb 7.7 L (12.0-15.0) g/dL Hct 26.7 L (37.2-46.3) % MCHC 28.8 L (32.0-37.0) g/dL RDW 18.6 H (11.5-14.5) % POC Glucose (mg/dL) 218 H (70-110) mg/dL Crossmatch Assessment and Plan Plan: Assessment: 1. Acute kidney injury secondary to ATN secondary to cardiorenal syndrome. Hemodialysis dependent. Has permacath. 2. Volume overload. Improving with ultrafiltration. 3. Anemia of chronic kidney disease with a component of acute blood loss maintained on Aranesp. Status post blood transfusion as well as IV DDAVP this admission. 4. Chronic any disease mineral bone disease maintained on PhosLo. 5. MRSA bacteremia status post line holiday. On IV antibiotics. ID following. Plan: Currently seen while undergoing hemodialysis. She will be maintained on Saturday schedule outpatient. Maintain Lasix. Maintain fluid restriction. Monitor for renal recovery outpatient.
[2023-12-23 11:37] LABS: Glucose,Whole Blood 186 mg/dL (70-110)
[2023-12-23] MEDS: FUROSEMIDE 10 MG/ML 10 ML VIAL ONE (13:04)
[2023-12-23 17:06] LABS: Glucose,Whole Blood 198 mg/dL (70-110)
[2023-12-23] MEDS: ONDANSETRON 4 MG/2 ML VIAL ONE ×5 (19:34→19:35)
[2023-12-23 21:07] LABS: Glucose,Whole Blood 195 mg/dL (70-110)
[2023-12-24 06:22] LABS: Glucose,Whole Blood 119 mg/dL (70-110)
--- NOTE | 2023-12-24 10:06 | PN ---
PROGRESS NOTE DATE OF SERVICE: 12/20/2023 REASON FOR FOLLOWUP: MRSA bacteremia secondary to dialysis catheter infection. INTERVAL HISTORY: The patient is afebrile. The patient is breathing comfortably. Denies any chest pain, shortness of breath, or cough. No nausea. No vomiting. No abdominal pain. No diarrhea. PHYSICAL EXAMINATION: VITAL SIGNS: Blood pressure 134/62, pulse 67, temperature 97.3. She is 95% on room air. GENERAL: The patient is a middle-aged female, up in the chair, in no distress. RESPIRATORY SYSTEM: Unlabored breathing. Decreased intensity of breath sounds. No wheeze. HEART: S1, S2. Regular rate and rhythm. ABDOMEN: Soft. No tenderness. LABORATORY DATA: Repeat blood culture negative. DIAGNOSTIC IMPRESSION AND PLAN: The patient with MRSA bacteremia secondary to dialysis catheter infection in this patient who is status post removal of the dialysis catheter. Repeat blood culture negative. She did get a new left IJ dialysis catheter. She will continue on daptomycin to finish 2 weeks from negative culture and close outpatient followup. MMODL / IJN: [id number] /
--- NOTE | 2023-12-24 10:12 | PN ---
PROGRESS NOTE DATE OF SERVICE: 12/21/2023 REASON FOR FOLLOWUP: MRSA bacteremia, secondary to dialysis catheter infection. INTERVAL HISTORY: Patient is afebrile. She is breathing comfortably on room air. No chest pain, shortness of breath, or cough. No nausea, vomiting. No abdominal pain or diarrhea. PHYSICAL EXAMINATION: VITAL SIGNS: Blood pressure 126/79, pulse of 68, temperature 98. GENERAL DESCRIPTION: This is a middle-aged female, up in the chair, in no distress. RESPIRATORY SYSTEM: Unlabored breathing. Clear to auscultation. HEART: S1, S2. Regular rate and rhythm. ABDOMEN: Soft. No tenderness. LABORATORY DATA: White count is 4.89, creatinine 1.84. DIAGNOSTIC IMPRESSION AND PLAN: Patient with MRSA bacteremia secondary to dialysis catheter infection, which has been discontinued. Repeat culture negative. Patient did get a left IJ dialysis catheter. She will continue daptomycin to finish a course of therapy. Family at the bedside. Questions were answered. MMODL / IJN: [id number] /
--- NOTE | 2023-12-24 11:03 | P.PN ---
Subjective Patient is seen in follow-up for end-stage renal disease. She is maintained on hemodialysis on Saturday schedule. Denies chest pain or shortness of breath. Vital signs are stable. General: No acute distress. HEENT: Head exam is unremarkable. LUNGS: No audible rhonchi or wheezes. HEART: Rate and Rhythm are regular. ABDOMEN: Nontender. EXTREMITITES: 1+ edema. Objective - Vital Signs Vital signs: Vital Signs Temp 97.7 F 12/24/23 07:46 Pulse 76 12/24/23 07:46 Resp 17 12/24/23 07:46 BP 121/60 12/24/23 07:46 Pulse Ox 94 L 12/24/23 07:46 FiO2 Intake & Output 12/23/23 12/24/23 12/24/23 18:59 06:59 18:59 Intake Total 400 Output Total 6400 0 Balance -6000 0 Intake: Hemodialysis 400 Output: Urine 0 Hemodialysis 3400 Hemodialysis Net Amount 3000 Other: Voiding Method Toilet Toilet # Voids 1 1 # Bowel Movements 2 - Labs CBC & Chem 7: 12/23/23 05:39 12/22/23 02:40 Labs: Abnormal Lab Results - Last 24 Hours (Table) 12/23/23 12/23/23 12/23/23 Range/Units 11:36 17:05 21:06 POC Glucose (mg/dL) 186 H 198 H 195 H (70-110) mg/dL 12/24/23 Range/Units 06:19 POC Glucose (mg/dL) 119 H (70-110) mg/dL Microbiology - Last 24 Hours (Table) 11/28/23 05:39 Blood Culture Gram Stain - Final Blood Blood Culture - Final Methicillin resist S. aureus Molecular ID Assessment and Plan Plan: Assessment: 1. Acute kidney injury secondary to ATN secondary to cardiorenal syndrome. Hemodialysis dependent. Has permacath. 2. Volume overload. Improving with ultrafiltration. 3. Anemia of chronic kidney disease with a component of acute blood loss maintained on Aranesp. Status post blood transfusion as well as IV DDAVP this admission. 4. Chronic any disease mineral bone disease maintained on PhosLo. 5. MRSA bacteremia status post line holiday. On IV antibiotics. ID following. Plan: Currently seen while undergoing hemodialysis. She will be maintained on Saturday schedule outpatient. Maintain Lasix. Maintain fluid restriction. Monitor for renal recovery outpatient.
[2023-12-24 11:54] LABS: Glucose,Whole Blood 291 mg/dL (70-110)
--- NOTE | 2023-12-24 12:21 | P.PN ---
Subjective Progress Note Date: 12/23/23 HISTORY OF PRESENT ILLNESS: This is a 58-year-old female with a previous medical history signif icant for coronary artery disease status post PCI of the RCA 2023 with ischemic cardiomyopathy, hypertension and hypertensive cardiovascular disease, hyperlipidemia, diabetes mellitus type 2 uncontrolled, chronic kidney disease stage IIIb, anemia of chronic kidney disease, history of COPD, history of severe pulmonary hypertension, history of fracture of the medial lateral malleolus, chronic wound to the right heel that has been healed, patient has been followed by wy Tracy Morris and she was seen yesterday on round and she was complaining of increased weight gain with increased anasarca with increased fluid in bilateral lower extremity all the way up to the thigh all the way up to the abdominal area, was complaining of increased shortness of breath, she was on 2 L nasal cannula her oxygen saturation was 99%, patient was quite anxious and frantic at the [facility], she was directed to go to the emergency department for evaluation of acute and chronic systolic heart failure with worsening renal function due to cardiorenal syndrome and consultation was placed for cardiology and nephrology. 11/21: Patient is seen today in follow-up. She has had a dialysis catheter placed today by Dr. Dale. She remains on Lasix drip per nephrology. Extremity and abdominal edema are improving, patient appears to be better today, she has been been started on Solu-Medrol 60 mg IV push every 8 hours yesterday along with nebulized treatment, continue oxygen support, pulmonary evaluation is appreciated, continue to monitor the patient input and output and daily weight, she is less anxious today as she was started on Xanax yesterday as needed, I believe the nephrology is planning for the patient to go for hemodialysis permacatheter was placed by Dr. Dale early in the right internal jugular vein. I will follow-up with the patient very closely. Her prognosis continue to be guarded her daughter and her granddaughter and they were updated yesterday and they were aware that the patient may go for dialysis at this point. 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 Labs reviewed and looks improving leukocytosis, hemoglobin stable at 8.0 creatinine 2.3 and potassium 5.8 Lisinopril remains on hold 11/23 Patient awake alert No back pain She is getting hemodialysis Complains from pain all over her body 11/24: Patient sitting up in chair getting ready to get her hemodialysis for the permacatheter is complaining of a lot of pain all over her body, she has been getting [facility] by mouth, she is asking for her morphine sulfate she will be given 2 mg IV push at this time for further control of her pain prior to her hemodialysis, patient appears to be somewhat emotional at this time, she appears a lot better since she was started on dialysis, she is not as edematous as she was before, she continues to have some edema both lower extremities not this bad she appears to have some edema in the right upper extremity we will continue to monitor very closely. Continue current treatment plan, the plan is to transfer the patient back to [facility] when she has a slot for outpatient dialysis. 11/25: Patient sitting up in bed in no apparent distress, she is complaining of increased pain and swelling of the right upper extremity, she continues to have minimal shortness of breath, she continues to have some swelling both lower extremities, she did have dialysis yesterday, will are going to order a venous Doppler of the right upper extremity rule out any deep venous thrombosis, we will start the patient on K-pad's, start the patient on IV antibiotic in the form of cefazolin 2 g IV piggyback every 12 hours, I will obtain blood cultures prior to the antibiotic, we will monitor the patient very closely, await the final result of the ultrasound and we will see how the patient progress over the next 1 or 2 days as far as the swelling of the right upper extremity. 11/26: Patient is laying down in bed does not appear to be in acute distress, she appears to be significantly drowsy, yet she is asking for pain management, we will discontinue morphine completely, continue patient on [facility] as needed, monitor the patient's symptoms very closely, patient blood culture showed evidence of MRSA, switch to Cubicin 350 mg of piggyback every 48 hours, infectious disease consultation was obtained, patient did have recent permacatheter placement for hemodialysis, will continue to follow-up with the patient very closely, her right arm appears to be better, venous Doppler did not show evidence of acute DVT, I will follow-up with the patient very closely. The plan is for the patient to be transferred back to [facility] she already had assignment for hemodialysis as an outpatient in [place]. 11/27: Patient sitting up in bed in no apparent distress, she is more awake and more alert today, she denies any fever or chills, she did receive dialysis yesterday, she has no abdominal pain, nausea vomiting or diarrhea, she was seen in consultation by infectious disease due to MRSA bacteremia, continue patient on daptomycin 350 mg IV piggyback every 48 hours, monitor the patient very closely, echocardiogram was ordered results still pending at the time of dictation, workup for bacteremia still ongoing, likely the patient will be able to discharge hopefully in the next 24 hours back to [facility]. 12/21: Patient is sitting up in a chair and open in distress, she continues to have some bleeding from the permacatheter that was placed in the left internal jugular vein, discontinue Plavix at this time, monitor the patient hemoglobin very closely her hemoglobin is down to 6.9, we will give the patient 1 unit of packed red blood cells, then followed by Lasix 80 mg IV push x 1, patient is scheduled to go for dialysis tomorrow morning, and then she can be discharged to [facility] tomorrow in the afternoon with dialysis to be set up at [place] area as the patient and family want her to go to the [facility] to send clear, patient has no chest pain at this time, she has no shortness of breath, she denies any abdominal pain, she appears to be quite depressed at this time, because of her current situation and she wanted to get out of the hospital as soon as possible. 12/22: Patient sitting up in bed in no apparent distress, she complains of pain in her left shoulder, she has not had any bleeding from the permacatheter, she is scheduled to go for hemodialysis tomorrow morning, likely the patient can be discharged to [facility] tomorrow morning if okay with the rest of the makeup sales consultant, we will try to make that happen tomorrow morning. Hopefully after dialysis. REVIEW OF SYSTEMS: Constitutional: No documented fever, no chills, no night sweats. No weight change. Positive for generalized weakness, fatigue or lethargy. She states she is feeling much better today she continues to have shortness of breath but improved. No daytime sleepiness. EENT: No headache. No blurred vision or double vision, no loss of vision. No loss of Hearing, no ringing in the ears, no dizziness. No nasal drainage or congestion. No epistaxis. No sore throat. Lungs: Positive for less shortness of breath, no cough, no sputum production. No wheezing. Reports dyspnea with activity. Cardiovascular: No chest pain, no lower extremity edema. No palpitations. No paroxysmal nocturnal dyspnea. No orthopnea. No lightheadedness or dizziness. No syncopal episodes. Abdominal: Reports no abdominal pain. No nausea, vomiting. No diarrhea. No constipation. No bloody or tarry stools reports loss of appetite. Genitourinary: No dysuria, increased frequency, urgency. No urinary retention. Musculoskeletal: No myalgias. No muscle weakness, positive for gait dysfunction, positive for frequent falls. Positive for back pain and neck pain. Integumentary: Right heel scab, no lesions. No rash or pruritus. No unusual bruising. Positive for change in hair or nails.right upper extremity with erythema and pain and edema Neurologic: No aphasia. No facial droop. No change in mentation. No head injury. No headache. No paralysis. No paresthesia. Psychiatric: positive for depression. Positive anxiety. No mood swings. Endocrine: No abnormal blood sugars. No weight change. PHYSICAL EXAMINATION: General: 58-year-old female sitting up in bed in no respiratory distr ess HEENT: Head is atraumatic, normocephalic, pupils were equal round reactive to light and recommendation, extraocular muscle movement were intact, sclera nonicteric, conjunctivae were pale, mucous membranes of the mouth are somewhat dry. Neck: Supple, Increased JVP, normal carotid upstroke bilaterally, no lymphadenopathy. Left IJ permacatheter With pressure dressing. Chest: Decreased breath sounds at the bases, few rhonchi, no expiratory wheezes, no chest wall tenderness, no intercostal retractions. Decreased tactile fremitus at the lower thirds of both lung bowen. Heart: First heart sound is normal, second heart sound is normal there is systolic ejection murmur 2/6 located in the left sternal border. Abdomen: Soft, nontender, nondistended, positive bowel sounds Extremities: There is +2 edema no calf tenderness DP +1 bilaterally, right heel scab, there is boot in the right lower extremity, Neurologic examination: Patient is awake alert and oriented x3, cranial nerves II-12 appear grossly intact, muscle power were 4 out of 5 in upper extremities and 3 out of 5 in bilateral lower extremities, deep tendon reflexes normal bilaterally. ASSESSMENT AND PLAN: 1. Right upper extremity cellulitis with MRSA bacteremia that was persistent for quite some time, patient is currently on daptomycin infectious diseases following, repeated blood cultures are negative. Patient should be done with the daptomycin tomorrow. 2. Acute on chronic systolic heart failure due to ischemic cardiomyopathy. Continue with hemodialysis as scheduled, continue patient on hydralazine 25 mg orally twice every day, monitor the patient very closely.. 3. Acute on chronic kidney disease stage 4 due to cardiorenal syndrome patient was restarted on hemodialysis at this time, and she is doing better.. 4. Acute hypoxemic respiratory failure due to acute on chronic systolic heart failure as well as acute exacerbation of COPD. ,continue DuoNeb 3 manipulation 4 times every day, continue oxygen support, continue to monitor input and output and daily weight. 5. Coronary artery disease status post PCI of the RCA. Continue patient on aspirin 81 mg once every day, discontinue Plavix if the patient continue to have some bleeding from the port, vascular surgery consulted, patient also will be Off atorvastatin due to daptomycin. 6. Hypertension and hypertensive cardiovascular disease. Continue hydralazine 25 mg orally twice every day, monitor the patient blood pressure very closely. 7. Mixed hyperlipidemia. Atorvastatin has been on hold due to daptomycin. 8. Diabetes mellitus type 2. Continue patient on sliding scale insulin. 9. Restless leg syndrome. Continue ropinirole 2 mg orally at bedtime. 10. Anemia of chronic kidney disease. Continue patient on Aranesp 40 mcg subcutaneously every week. 11. Hypothyroidism. Continue levothyroxine 75 mcg orally once every day. 12. COPD without exacerbation, continue monitor the patient very closely. Patient is not requiring the oxygen at this time. 13. Chronic hypoxemic respiratory failure due to combination of nonischemic cardiomyopathy and COPD. Patient is not requiring any oxygen at this point in time. 14. Subacute fracture of the medial and lateral malleolus currently in boot no surgical intervention is planned 15. GERD. Continue pantoprazole 40 mg once every day. 16. Medical debility. Plan for the patient to go to [facility] for physical therapy rehabilitation. 17. DVT prophylaxis. Was taken off heparin due to epistaxis as well as bleeding from the permacatheter. 18. GI prophylaxis. Continue Protonix 40 mg once every day. 19. Acute blood loss anemia due to recurrent bleeding from the left IJ permacatheter type and cross and transfuse 1 unit of packed red blood cells, give the patient 80 mg of Lasix posttransfusion and the patient will go for hemodialysis tomorrow morning. Repeat CBC tomorrow morning. 21. Disposition: Transfer the patient back to [facility] tomorrow morning. Objective - Vital Signs Vital signs: Vital Signs Temp 97.7 F 12/24/23 07:46 Pulse 76 12/24/23 07:46 Resp 17 12/24/23 07:46 BP 121/60 12/24/23 07:46 Pulse Ox 94 L 12/24/23 07:46 FiO2 Intake & Output 12/23/23 12/24/23 12/24/23 18:59 06:59 18:59 Intake Total 400 Output Total 6400 0 Balance -6000 0 Intake: Hemodialysis 400 Output: Urine 0 Hemodialysis 3400 Hemodialysis Net Amount 3000 Other: Voiding Method Toilet Toilet # Voids 1 1 # Bowel Movements 2 - Labs CBC & Chem 7: 12/23/23 05:39 12/22/23 02:40 Labs: Abnormal Lab Results - Last 24 Hours (Table) 12/23/23 12/23/23 12/24/23 Range/Units 17:05 21:06 06:19 POC Glucose (mg/dL) 198 H 195 H 119 H (70-110) mg/dL 12/24/23 Range/Units 11:53 POC Glucose (mg/dL) 291 H (70-110) mg/dL Microbiology - Last 24 Hours (Table) 11/28/23 05:39 Blood Culture Gram Stain - Final Blood Blood Culture - Final Methicillin resist S. aureus Molecular ID
--- NOTE | 2023-12-24 12:24 | P.DS ---
Providers Date of admission: 11/20/23 23:56 Expected date of discharge: 12/24/23 Attending physician: Jesus Mina Consults: 11/20/23 22:01 Consult Physician Urgent Consulting Provider: Janey Nunez Consult Reason/Comments: CKD, hyperkalemia Do you want consulting provider notified?: Yes, Notify in am 11/21/23 13:12 Consult Physician Urgent Consulting Provider: Nas Langford Consult Reason/Comments: Respiratory failure Do you want consulting provider notified?: Yes 11/22/23 07:27 Consult Physician Urgent Consulting Provider: Israel Dale Consult Reason/Comments: dialysis cath Do you want consulting provider notified?: Yes 11/24/23 11:04 Consult Physician Routine Consulting Provider: Panfilo Parsons Consult Reason/Comments: muffled hearing bilateral ears Do you want consulting provider notified?: Yes 11/27/23 13:04 Consult Physician Routine Consulting Provider: Shawnee Subramanian Consult Reason/Comments: MRSA Bacteremia/ Right arm cellulitis Do you want consulting provider notified?: Yes Primary care physician: Jesus Mina Hospital Course: HISTORY OF PRESENT ILLNESS: This is a 58-year-old female with a previous medical history significant for coronary artery disease status post PCI of the RCA 2023 with ischemic cardiomyopathy, hypertension and hypertensive cardiovascular disease, hyperlipidemia, diabetes mellitus type 2 uncontrolled, chronic kidney disease stage IIIb, anemia of chronic kidney disease, history of COPD, history of severe pulmonary hypertension, history of fracture of the medial lateral malleolus, chronic wound to the right heel that has been healed, patient has been followed by [facility] and she was seen yesterday on round and she was complaining of increased weight gain with increased anasarca with increased fluid in bilateral lower extremity all the way up to the thigh all the way up to the abdominal area, was complaining of increased shortness of breath, she was on 2 L nasal cannula her oxygen saturation was 99%, patient was quite anxious and frantic at the senior care, she was directed to go to the emergency department for evaluation of acute and chronic systolic heart failure with worsening renal function due to cardiorenal syndrome and consultation was placed for cardiology and nephrology. 11/21: Patient is seen today in follow-up. She has had a dialysis catheter placed today by Dr. Dale. She remains on Lasix drip per nephrology. Extremity and abdominal edema are improving, patient appears to be better today, she has been been started on Solu-Medrol 60 mg IV push every 8 hours yesterday along with nebulized treatment, continue oxygen support, pulmonary evaluation is appreciated, continue to monitor the patient input and output and daily weight, she is less anxious today as she was started on Xanax yesterday as needed, I believe the nephrology is planning for the patient to go for hemodialysis permacatheter was placed by Dr. Dale early in the right internal jugular vein. I will follow-up with the patient very closely. Her prognosis continue to be guarded her daughter and her granddaughter and they were updated yesterday and they were aware that the patient may go for dialysis at this point. 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 day per side framer Labs reviewed and looks improving leukocytosis, hemoglobin stable at 8.0 creatinine 2.3 and potassium 5.8 Lisinopril remains on hold 11/23 Patient awake alert No back pain She is getting hemodialysis Complains from pain all over her body 11/24: Patient sitting up in chair getting ready to get her hemodialysis for the permacatheter is complaining of a lot of pain all over her body, she has been getting [place] by mouth, she is asking for her morphine sulfate she will be given 2 mg IV push at this time for further control of her pain prior to her hemodialysis, patient appears to be somewhat emotional at this time, she appears a lot better since she was started on dialysis, she is not as edematous as she was before, she continues to have some edema both lower extremities not this bad she appears to have some edema in the right upper extremity we will continue to monitor very closely. Continue current treatment plan, the plan is to transfer the patient back to [facility] when she has a slot for outpatient dialysis. 11/25: Patient sitting up in bed in no apparent distress, she is complaining of increased pain and swelling of the right upper extremity, she continues to have minimal shortness of breath, she continues to have some swelling both lower extremities, she did have dialysis yesterday, will are going to order a venous Doppler of the right upper extremity rule out any deep venous thrombosis, we will start the patient on K-pad's, start the patient on IV antibiotic in the form of cefazolin 2 g IV piggyback every 12 hours, I will obtain blood cultures prior to the antibiotic, we will monitor the patient very closely, await the final result of the ultrasound and we will see how the patient progress over the next 1 or 2 days as far as the swelling of the right upper extremity. 11/26: Patient is laying down in bed does not appear to be in acute distress, she appears to be significantly drowsy, yet she is asking for pain management, we will discontinue morphine completely, continue patient on [place] as needed, monitor the patient's symptoms very closely, patient blood culture showed evidence of MRSA, switch to Cubicin 350 mg of piggyback every 48 hours, infectious disease consultation was obtained, patient did have recent permacatheter placement for hemodialysis, will continue to follow-up with the patient very closely, her right arm appears to be better, venous Doppler did not show evidence of acute DVT, I will follow-up with the patient very closely. The plan is for the patient to be transferred back to [facility] she already had assignment for hemodialysis as an outpatient in [place]. 11/27: Patient sitting up in bed in no apparent distress, she is more awake and more alert today, she denies any fever or chills, she did receive dialysis yesterday, she has no abdominal pain, nausea vomiting or diarrhea, she was seen in consultation by infectious disease due to MRSA bacteremia, continue patient on daptomycin 350 mg IV piggyback every 48 hours, monitor the patient very closely, echocardiogram was ordered results still pending at the time of dictation, workup for bacteremia still ongoing, likely the patient will be able to discharge hopefully in the next 24 hours back to [facility]. 12/21: Patient is sitting up in a chair and open in distress, she continues to have some bleeding from the permacatheter that was placed in the left internal jugular vein, discontinue Plavix at this time, monitor the patient hemoglobin very closely her hemoglobin is down to 6.9, we will give the patient 1 unit of packed red blood cells, then followed by Lasix 80 mg IV push x 1, patient is scheduled to go for dialysis tomorrow morning, and then she can be discharged to [facility] tomorrow in the afternoon with dialysis to be set up at [place] area as the patient and family want her to go to the [facility] to send clear, patient has no chest pain at this time, she has no shortness of breath, she denies any abdominal pain, she appears to be quite depressed at this time, because of her current situation and she wanted to get out of the hospital as soon as possible. 12/22: Patient sitting up in bed in no apparent distress, she complains of pain in her left shoulder, she has not had any bleeding from the permacatheter, she is scheduled to go for hemodialysis tomorrow morning, likely the patient can be discharged to [facility] tomorrow morning if okay with the rest of the technical consultant, we will try to make that happen tomorrow morning. Hopefully after dialysis. Discharge diagnoses: 1. Right upper extremity cellulitis with MRSA bacteremia that was persistent for quite some time, patient is currently on daptomycin infectious diseases following, 2. Acute on chronic systolic heart failure due to ischemic cardiomyopathy. 3. Acute on chronic kidney disease stage 4 due to cardiorenal syndrome patient was restarted on hemodialysis Saturday and Saturday. 4. Acute hypoxemic respiratory failure due to acute on chronic systolic heart failure as well as acute exacerbation of COPD. 5. Coronary artery disease status post PCI of the RCA. 6. Hypertension and hypertensive cardiovascular disease. 7. Mixed hyperlipidemia. 8. Diabetes mellitus type 2. 9. Restless leg syndrome. 10. Anemia of chronic kidney disease. 11. Hypothyroidism. 12. COPD without exacerbation, continue monitor the patient very closely. 13. Chronic hypoxemic respiratory failure due to combination of nonischemic cardiomyopathy and COPD. 14. Subacute fracture of the medial and lateral malleolus currently in boot no surgical intervention is planned 15. GERD. 16. Medical debility. 17. Acute blood loss anemia due to recurrent bleeding from the left IJ permacatheter type and cross and transfuse 1 unit of packed red blood cells Patient Condition at Discharge: Serious Plan - Discharge Summary Discharge Rx Participant: No New Discharge Prescriptions: No Action Fluticasone Nasal Sutton [Flonase Nasal Sutton] 2 spray EA NOSTRIL DAILY ml Folic Acid 1 mg PO DAILY tab rOPINIRole HCL [Requip] 1 mg PO HS PRN tab PRN Reason: restless legs Ipratropium-Albuterol Nebulize [Duoneb 0.5 mg-3 mg/3 ml Soln] 3 ml INHALATION RT-Q6H PRN PRN Reason: Shortness Of Breath Darbepoetin Frantz [Aranesp] 40 mcg SQ FR Dapagliflozin Propanediol [Farxiga] 10 mg PO DAILY tab Atorvastatin [Lipitor] 40 mg PO DAILY tab Cholecalciferol [Vitamin D3 (25 Mcg = 1000 Iu)] 25 mcg PO DAILY tab Bumetanide [Bumex] 1 mg PO TID@0500,1300,2100 Ferrous Sulfate [Feosol] 325 mg PO BID hydrALAZINE HCL [Apresoline] 25 mg PO BID@0800,1600 Insulin Lispro [humaLOG Kwikpen] See Protocol SQ ACHS@06,11,16,20 lisinopriL [Zestril] 2.5 mg PO DAILY@0800 Aspirin 81 mg PO DAILY 90 Days #90 tab Docusate [Colace] 100 mg PO BID cap Lidocaine 4% Patch 1 patch TOPICAL DAILY patch Melatonin 5 mg PO HS tab Clopidogrel [Plavix] 75 mg PO DAILY tab Thiamine [Vitamin B-1] 100 mg PO DAILY tab Multivitamins, Thera [Multivitamin (formulary)] 1 tab PO DAILY@0800 Heparin Sodium,Porcine (1 ml) [Heparin Sodium] 5,000 unit SQ Q12HR each Calcium Acetate [PhosLo] 667 mg PO TID-W/MEALS tab HYDROcodone/APAP 5-325MG [[place] 5-325] 1 tab PO Q4HR PRN PRN Reason: Pain Levothyroxine Sodium [Synthroid] 75 mcg PO DAILY@0600 Omeprazole 20 mg PO DAILY Discharge Medication List Aspirin 81 mg PO DAILY 90 Days #90 tab 06/25/23 [Rx] Clopidogrel [Plavix] 75 mg PO DAILY tab 09/27/23 [Rx] Docusate [Colace] 100 mg PO BID cap 09/27/23 [Rx] Fluticasone Nasal Sutton [Flonase Nasal Sutton] 2 spray EA NOSTRIL DAILY ml 09/27/23 [Rx] Folic Acid 1 mg PO DAILY tab 09/27/23 [Rx] Lidocaine 4% Patch 1 patch TOPICAL DAILY patch 09/27/23 [Rx] Melatonin 5 mg PO HS tab 09/27/23 [Rx] Thiamine [Vitamin B-1] 100 mg PO DAILY tab 09/27/23 [Rx] rOPINIRole HCL [Requip] 1 mg PO HS PRN tab 09/27/23 [Rx] Darbepoetin Frantz [Aranesp] 40 mcg SQ FR 10/09/23 [History] Ipratropium-Albuterol Nebulize [Duoneb 0.5 mg-3 mg/3 ml Soln] 3 ml INHALATION RT-Q6H PRN 10/09/23 [History] Multivitamins, Thera [Multivitamin (formulary)] 1 tab PO DAILY@0800 10/09/23 [History] Atorvastatin [Lipitor] 40 mg PO DAILY tab 10/21/23 [Rx] Calcium Acetate [PhosLo] 667 mg PO TID-W/MEALS tab 10/21/23 [Rx] Cholecalciferol [Vitamin D3 (25 Mcg = 1000 Iu)] 25 mcg PO DAILY tab 10/21/23 [Rx] Dapagliflozin Propanediol [Farxiga] 10 mg PO DAILY tab 10/21/23 [Rx] Heparin Sodium,Porcine (1 ml) [Heparin Sodium] 5,000 unit SQ Q12HR each 10/21/23 [Rx] Bumetanide [Bumex] 1 mg PO TID@0500,1300,2100 11/21/23 [History] Ferrous Sulfate [Feosol] 325 mg PO BID 11/21/23 [History] HYDROcodone/APAP 5-325MG [[place] 5-325] 1 tab PO Q4HR PRN 11/21/23 [History] Insulin Lispro [humaLOG Kwikpen] See Protocol SQ ACHS@06,11,16,20 11/21/23 [History] Levothyroxine Sodium [Synthroid] 75 mcg PO DAILY@0600 11/21/23 [History] Omeprazole 20 mg PO DAILY 11/21/23 [History] hydrALAZINE HCL [Apresoline] 25 mg PO BID@0800,1600 11/21/23 [History] lisinopriL [Zestril] 2.5 mg PO DAILY@0800 11/21/23 [History] Follow up Appointment(s)/Referral(s): Ziggy Jose MD [Medical Doctor] - 2 Weeks Dialysis,[facility] [NON-STAFF] - 12/25/23 1:00 pm Jesus Mina MD [Primary Care Provider] - 1 Week (at [facility]) Activity/Diet/Wound Care/Special Instructions: [facility] on d/c
--- NOTE | 2023-12-24 13:26 | P.PN ---
Subjective Progress Note Date: 12/23/23 Principal diagnosis: Reason for follow-up is MRSA bacteremia Patient is a 58-year-old female with a past medical history significant for diabetes mellitus hypertension hyperlipidemia diabetic heel ulcer and infection that seem to have healing history of end-stage renal disease on dialysis patient has been brought to the hospital for swelling patient noticed to have worsening of her kidney function did have a right IJ dialysis catheter placement, patient was noticed to have swelling to the right upper extremity previously did have a IV to the right antecubital fossa from 11/20/2023 to 11/22/2023 did have evidence of persistent bacteremia likely due to dialysis catheter which was discontinued subsequently patient did clear her bacteremia I did have a new left IJ dialysis catheter On today's evaluation that is 12/23/2023,the patient remains to be afebrile, patient is on room air not requiring supplemental oxygen and denies any shortness of breath no chest pain or cough.Patient denies having any nausea or vomiting, no abdominal pain and no diarrhea has been reported Patient did have a white count of 6.26 creatinine 1.37 Objective - Vital Signs Vital signs: Vital Signs Temp 97.8 F 12/23/23 08:00 Pulse 69 12/23/23 08:00 Resp 18 12/23/23 08:00 BP 160/91 12/23/23 08:00 Pulse Ox 95 12/23/23 08:00 FiO2 Intake & Output 12/22/23 12/23/23 12/23/23 18:59 06:59 18:59 Intake Total 600 Balance 600 Intake: Intake, IV Titration 50 Amount Desmopressin Acetate 15 50 mcg In Sodium Chloride 0. 9% 50 ml @ 200 mls/hr IVPB ONCE ONE Rx#: [id number] Oral 240 Blood Product 310 Rc As-1 Unit 310 [id number] Other: Voiding Method Toilet # Voids 2 0 # Bowel Movements 1 - Exam GENERAL DESCRIPTION: Middle-aged female up in bed in no distress RESPIRATORY SYSTEM: Unlabored breathing , decreased breath sounds at bases HEART: S1 S2 regular rate and rhythm , ABDOMEN: Soft , no tenderness EXTREMITIES: No edema feet - Labs CBC & Chem 7: 12/23/23 05:39 12/22/23 02:40 Labs: Abnormal Lab Results - Last 24 Hours (Table) 12/22/23 12/22/23 12/23/23 Range/Units 05:22 21:12 05:39 RBC 2.85 L (4.10-5.20) X 10*6/uL Hgb 7.7 L (12.0-15.0) g/dL Hct 26.7 L (37.2-46.3) % MCHC 28.8 L (32.0-37.0) g/dL RDW 18.6 H (11.5-14.5) % POC Glucose (mg/dL) 199 H (70-110) mg/dL Crossmatch See Detail 12/23/23 12/23/23 Range/Units 06:21 11:36 RBC (4.10-5.20) X 10*6/uL Hgb (12.0-15.0) g/dL Hct (37.2-46.3) % MCHC (32.0-37.0) g/dL RDW (11.5-14.5) % POC Glucose (mg/dL) 218 H 186 H (70-110) mg/dL Crossmatch Microbiology - Last 24 Hours (Table) 11/28/23 05:39 Blood Culture Gram Stain - Final Blood Blood Culture - Final Methicillin resist S. aureus Molecular ID Assessment and Plan (1) Bacteremia due to methicillin resistant Staphylococcus aureus Current Visit: Yes Status: Acute Code(s): R78.81 - BACTEREMIA; B95.62 - METHICILLIN RESIS STAPH INFCT CAUSING DISEASES [facility] SNOMED Code(s): 36977644835847593 (2) Right arm cellulitis Current Visit: Yes Status: Acute Code(s): L03.113 - CELLULITIS OF RIGHT UPPER LIMB SNOMED Code(s): 51636653059986775 Plan: 1patient with MRSA bacteremia questionably to the right upper extremity cellulitis and she was noted to have some swelling and redness to the right upper extremity subsequently did have persistent bacteremia concerning for dialysis catheter infection which has been discontinued patient did clear her bacteremia and have a new left IJ catheter 2patient has almost received 2 weeks of IV daptomycin from the negative blood culture and she will be more than enough for her bacteremia Dictation was produced using [employer] dictation software. please excuse any gram matical, word or spelling errors.
--- NOTE | 2023-12-24 13:27 | P.PN ---
Subjective Progress Note Date: 12/24/23 Principal diagnosis: Reason for follow-up is MRSA bacteremia Patient is a 58-year-old female with a past medical history significant for diabetes mellitus hypertension hyperlipidemia diabetic heel ulcer and infection that seem to have healing history of end-stage renal disease on dialysis patient has been brought to the hospital for swelling patient noticed to have worsening of her kidney function did have a right IJ dialysis catheter placement, patient was noticed to have swelling to the right upper extremity previously did have a IV to the right antecubital fossa from 11/20/2023 to 11/22/2023 did have evidence of persistent bacteremia likely due to dialysis catheter which was discontinued subsequently patient did clear her bacteremia I did have a new left IJ dialysis catheter On today's evaluation that is 12/24/2023, the patient continues to be afebrile, the patient is on room air and breathing comfortably, the Pt denies having any chest pain or cough, the patient denies having any abdominal pain no vomiting or any diarrhea has been reported by the nursing staff. No new lab draw today Objective - Vital Signs Vital signs: Vital Signs Temp 97.7 F 12/24/23 07:46 Pulse 76 12/24/23 07:46 Resp 17 12/24/23 07:46 BP 121/60 12/24/23 07:46 Pulse Ox 94 L 12/24/23 07:46 FiO2 Intake & Output 12/23/23 12/24/23 12/24/23 18:59 06:59 18:59 Intake Total 400 Output Total 6400 0 Balance -6000 0 Intake: Hemodialysis 400 Output: Urine 0 Hemodialysis 3400 Hemodialysis Net Amount 3000 Other: Voiding Method Toilet Toilet # Voids 1 1 # Bowel Movements 2 - Exam GENERAL DESCRIPTION: Middle-aged female up in bed in no distress RESPIRATORY SYSTEM: Unlabored breathing , decreased breath sounds at bases HEART: S1 S2 regular rate and rhythm , ABDOMEN: Soft , no tenderness EXTREMITIES: No edema feet - Labs CBC & Chem 7: 12/23/23 05:39 12/22/23 02:40 Labs: Abnormal Lab Results - Last 24 Hours (Table) 12/23/23 12/23/23 12/24/23 Range/Units 17:05 21:06 06:19 POC Glucose (mg/dL) 198 H 195 H 119 H (70-110) mg/dL 12/24/23 Range/Units 11:53 POC Glucose (mg/dL) 291 H (70-110) mg/dL Microbiology - Last 24 Hours (Table) 11/28/23 05:39 Blood Culture Gram Stain - Final Blood Blood Culture - Final Methicillin resist S. aureus Molecular ID Assessment and Plan (1) Bacteremia due to methicillin resistant Staphylococcus aureus Current Visit: Yes Status: Acute Code(s): R78.81 - BACTEREMIA; B95.62 - METHICILLIN RESIS STAPH INFCT CAUSING DISEASES CLASSD [id number] SNOMED Code(s): 41194932422848518 (2) Right arm cellulitis Current Visit: Yes Status: Acute Code(s): L03.113 - CELLULITIS OF RIGHT UPPER LIMB SNOMED Code(s): 24354086317440308 Plan: 1patient with MRSA bacteremia questionably to the right upper extremity cellulitis and she was noted to have some swelling and redness to the right upper extremity subsequently did have persistent bacteremia concerning for dialysis catheter infection which has been discontinued patient did clear her bacteremia and have a new left IJ catheter 2patient has received 2 weeks of IV daptomycin from the negative blood culture and infected catheter has been out hence recommended no antibiotic on discharge as per the case operator hard to arrange for IV daptomycin with the dialysis and will be high risk of nephrotoxicity from the vancomycin in the outpatient setting Dictation was produced using [employer] dictation software. please excuse any grammatical, word or spelling errors. Time with Patient: Less than 30
[2023-12-24 13:41] VITALS: BP 150/89; PULSE 77; RESP 18; TEMP 98
[2023-12-24 15:09] VITALS: BMI 19.7
[2023-12-25 10:56] LABS: HCT 26.3 % (34.0-46.0); HGB 7.7 gm/dL (11.4-16.0); MCH 26.7 pg (25.0-35.0); MCHC 29.2 g/dL (31.0-37.0); MCV 91.4 fL (80.0-100.0); RBC 2.88 m/uL (3.80-5.40); RDW 16.8 % (11.5-15.5); WBC 7.7 k/uL (3.8-10.6)
[2023-12-25 10:57] LABS: Basophils % (A) 1 %; Eosinophils # (A) 0.2 k/uL (0-0.7); Eosinophils % (A) 3 %; Lymphocytes # (A) 0.9 k/uL (1.0-4.8); Lymphocytes % (A) 12 %; Monocytes # (A) 0.6 k/uL (0-1.0); Monocytes % (A) 7 %; Neutrophils # (A) 5.8 k/uL (1.3-7.7); Neutrophils % (A) 75.2; Platelet Count 236 k/uL (150-450)
[2023-12-25 10:58] LABS: Anion Gap 4 mmol/L; Blood Urea Nitrogen 32 mg/dL (7-17); Carbon Dioxide 28 mmol/L (22-30); Chloride 102 mmol/L (98-107); Glucose 124 mg/dL (74-99); Potassium 4.3 mmol/L (3.5-5.1); Sodium 134 mmol/L (137-145)
[2023-12-25 10:59] LABS: ALT <6 U/L (4-34); AST 20 U/L (14-36); Albumin 2.7 g/dL (3.5-5.0); Albumin/Globulin Ratio 0.8; Alkaline Phosphatase 193 U/L (38-126); Calcium 7.8 mg/dL (8.4-10.2); Globulin 3.6 g/dL; Total Bilirubin 0.4 mg/dL (0.2-1.3); Total Protein 6.3 g/dL (6.3-8.2)
--- NOTE | 2024-01-01 15:26 | IR ---
EXAMINATION TYPE: IR cvc insert central tunneled DATE OF EXAM: 01/01/2024 COMPARISON: NONE HISTORY: Fluoroscopy time. Fluoroscopy was provided to the referring clinician.
--- NOTE | 2024-01-07 21:32 | XR ---
Patient: Chelle Lin J Ordering Physician: Unknown, Unknown ID: [id number] Phone, Pager: Phone: N/A Pager: N/A : 1965 Age/Gender: 58Y, F Primary Location: N/A Procedure: XR chest 2V Study D ate: 12/05/2023 7:06:44 AM EXAMINATION TYPE: XR chest 2V DATE OF EXAM: 12/22/2023 11:03 AM CLINICAL INDICATION: CHF COMPARISON: Chest radiographs from 11/22/2023. TECHNIQUE: XR chest 2V Frontal view of the chest. FINDINGS: Lungs/Pleura: Mild blunting of the costophrenic angles. There is no evidence of pleural effusion, foc al consolidation, or pneumothorax. Pulmonary vascularity: Pulmonary vascular congestion. Heart/mediastinum: Cardiomediastinal silhouette is enlarged. Musculoskeletal: No acute osseous pathology. Other findings: None Lines/Tubes: Right internal jugular central venous catheter with distal tip at the cavoatrial junction. IMPRESSION: Cardiomegaly and mild pulmonary vascular congestion. Correlate with BNP for congestive heart failure. Possible trace bilateral pleural effusions.
--- NOTE | 2024-01-12 17:28 | US ---
Patient Chelle Lin ID [id number] Order # Procedure US BLEVD EXAMINATION TYPE: US venous doppler duplex LE BI DATE OF EXAM: 12/11/2023 12:47 PM COMPARISON: THIS EXAM WAS READ DURING PACS DOWNTIME, NO PRIORS AVAILABLE. CLINICAL INDICATION: Pain/edema SIDE PERFORMED: Bilateral TECHNIQUE: The lower extremity deep venous system is examined utilizing real time linear array sonogr aphy with graded compression, doppler sonography and color-flow sonography. VESSELS IMAGED: Common Femoral Vein Deep Femoral Vein Greater Saphenous Vein * Femoral Vein Popliteal Vein Small Saphenous Vein * Proximal Calf Veins (* superficial vessels) Right Leg: Negative for DVT Grayscale, color doppler, spectral doppler imaging performed of the deep veins of the lower extremities. There is normal flow, compressibility, vascular waveforms. Left Leg: Negative for DVT Grayscale, color doppler, spectral doppler imaging performed of the deep v eins of the lower extremities. There is normal flow, compressibility, vascular waveforms. Incidental finding approx 5 cm pseudoaneurysm seen with possible patent communication to the deep fem oral artery and possible clotted communication to the superficial femoral artery. IMPRESSION: 1. No evidence for deep vein thrombosis of either lower to mid. 2. 5 cm pseudoaneurysm with patent indication to the deep femoral artery and possible thrombosed m utation to the femoral artery. Consider MR angiography for further evaluation. A pseudoaneurysm measuring up to 4.6 x 4.4 x 3.3 cm is identified in the right groin, the plant production manager reports a 2 mm wide 1.6 cm in length. Program Supervisor felt that there was a patent communication to the deep femoral artery and possible thrombosed communication to the superficial femoral artery. Consider CT angiography for further evaluation. [facility], Workstation: [id number], 01/12/2024 5:26 PM
--- NOTE | 2024-01-13 08:52 | XR ---
Patient Chelle Lin ID [id number] EXAMINATION TYPE: XR chest 1V DATE OF EXAM: 12/08/2023 2:19 PM CLINICAL INDICATION: Congestive heart failure. COMPARISON: THIS EXAM WAS READ DURING PACS DOWNTIME, NO PRIORS AVAILABLE. TECHNIQUE: XR chest 1V Frontal view of the chest. FINDINGS: Lungs/Pleura: Blunting of the left costophrenic angle. There is no evidence of right pleural effusion , focal consolidation, or pneumothorax. Pulmonary vascularity: Unremarkable. Heart/mediastinum: Cardiomediastinal silhouette is enlarged. Musculoskeletal: No acute osseous pathology. Right central venous catheter with tip in appropriate position. IMPRESSION: Relatively clear lungs, no evidence for acute heart failure exacerbation. Trace left pleural effusion .
--- NOTE | 2024-01-13 11:33 | XR ---
Chelle Lin ID: [id number] : 1965 EXAMINATION TYPE: XR chest 1V DATE OF EXAM: 12/18/2023 COMPARISON: 12/16/2023 HISTORY: 58-year-old female shortness of breath TECHNIQUE: Single frontal view of the chest is obtained. FINDINGS: Left-sided double-lumen hemodialysis catheter tips in the mid SVC level. Heart mildly enla rged. Diffuse interstitial density is similar. Possible trace effusions. IMPRESSION: Mild cardiomegaly and interstitial densities, possible pulmonary vascular congestion. Th ere may be trace pleural effusions as well.
--- NOTE | 2024-01-14 10:03 | XR ---
Chelle Lin ID [id number] EXAMINATION TYPE: XR chest 1V DATE OF EXAM: 12/16/2023 COMPARISON: 12/04/2023 HISTORY: 58-year-old female shortness of breath TECHNIQUE: Single frontal view of the chest is obtained. FINDINGS: Heart borderline enlarged. There are trace bilateral pleural effusions and mild patchy bib asilar density. Upper and mid lungs relatively clear. IMPRESSION: Trace pleural effusions with adjacent atelectasis and/or consolidation. Correlate for m ild fluid overload/mild pulmonary vascular congestion.
--- NOTE | 2024-01-14 11:25 | CA ---
Transthoracic Echo Report Name: Chelle Lin Age: 58 Gender: F : 1965 Exam Date: 12/10/2023 13:26 Exam Location: [facility] Ht (in): 63 Wt (lb): 110 Ordering Physician: Attending/Referring Phys: Ensemble Member Asuncion Rocha RDCS Procedure CPT: Indications: Cardiac Hx: Technical Quality: Good Contrast 1: Total Dose (mL): Contrast 2: Total Dose (mL): MEASUREMENTS (Male / Female) Normal Values 2D ECHO LV Diastolic Diameter PLAX 4.5 cm 4.2 - 5.9 / 3.9 - 5.3 cm LV Systolic Diameter PLAX 3.2 cm IVS Diastolic Thickness 1.0 cm 0.6 - 1.0 / 0.6 - 0.9 cm LVPW Diastolic Thickness 1.1 cm 0.6 - 1.0 / 0.6 - 0.9 cm LV Relative Wall Thickness 0.5 RV Internal Dim ED PLAX 4.4 cm LVOT Diameter 2.0 cm LV Diastolic Volume MOD BP 119.0 cm??? 67 - 155 / 56 - 104 cm??? LV Systolic Volume MOD BP 44.9 cm??? 22 - 58 / 19 - 49 cm??? LV Ejection Fraction MOD BP 62.2 % >= 55 % LV Diastolic Volume MOD 4C 113.0 cm??? LV Systolic Volume MOD 4C 39.5 cm??? LV Ejection Fraction MOD 4C 65.0 % LV Diastolic Length 4C 8.1 cm LV Systolic Length 4C 6.8 cm LV Diastolic Volume MOD 2C 121.2 cm??? LV Systolic Volume MOD 2C 49.6 cm??? LV Ejection Fraction MOD 2C 59.1 % LV Diastolic Length 2C 8.4 cm LV Systolic Length 2C 7.0 cm LA Volume 73.4 cm??? 18 - 58 / 22 - 52 cm??? LA Volume Index 49.4 cm???/m??? 16 - 28 cm???/m??? Ascending Aorta Diameter 2.6 cm DOPPLER AV Peak Velocity 167.6 cm/s AV Peak Gradient 11.2 mmHg AV Mean Velocity 119.2 cm/s AV Mean Gradient 6.2 mmHg AV Velocity Time Integral 34.7 cm LVOT Peak Velocity 137.5 cm/s LVOT Peak Gradient 7.6 mmHg LVOT Velocity Time Integral 26.7 cm LVOT Stroke Volume 82.3 cm??? LVOT Stroke Volume Index 54.9 ml/m??? AV Area Cont Eq vti 2.4 cm??? AV Area Cont Eq pk 2.5 cm??? MV Peak Velocity 114.3 cm/s MV Peak Gradient 5.2 mmHg MV Mean Velocity 81.2 cm/s MV Mean Gradient 2.8 mmHg MV Velocity Time Integral 28.0 cm MV Area PHT 4.2 cm??? Mitral E Point Velocity 93.4 cm/s Mitral A Point Velocity 71.5 cm/s Mitral E to A Ratio 1.3 MV Deceleration Time 180.3 ms TR Peak Velocity 371.1 cm/s TR Peak Gradient 55.1 mmHg Right Ventricular Systolic Press 74.1 mmHg PV Peak Velocity 82.8 cm/s PV Peak Gradient 2.7 mmHg FINDINGS Left Ventricle Left ventricular ejection fraction is estimated at 60 %. Mildly increased posterior wall thickness. Moderately increased left ventricular diastolic volume. No obvious regional wall motion abnormalities. Right Ventricle Moderate right ventricular dilatation with mildly reduced function. Severe pulmonary hypertension. Right Atrium Severe right atrial dilatation. Left Atrium Severely increased left atrial volume. Mildly increased left atrial area. Mitral Valve Mitral valve thickened. No evidence for mitral valve prolapse. Mild mitral stenosis. Trace mitral regurgitation. Aortic Valve Trileaflet aortic valve. Aortic valve sclerosis. No aortic stenosis. No aortic regurgitation. Tricuspid Valve Structurally normal tricuspid valve. No tricuspid stenosis. Moderate tricuspid regurgitation. Pulmonic Valve Structurally normal pulmonic valve. No pulmonic stenosis. Trace pulmonic regurgitation. Pericardium No pericardial effusion. Aorta Normal size aortic root and proximal ascending aorta. CONCLUSIONS LVEF estimated at 55-60% Mildly increased LV wall thickness No obvious regional wall motion abnormality Severe biatrial dilatation No obvious evidence of endocarditis or valvular vegetation appreciated Moderate tricuspid regurgitation. No other significant valvular dysfunction Moderate RV dilatation with mildly reduced systolic function. Severe pulmonary hypertension with RVSP estimated at more than 60 mmHg Previewed by: Dr Ziggy Jose (Electronically Signed) Final Date: 10 December 2023 17:36
--- NOTE | 2024-01-15 07:14 | XR ---
[id number] Chelle Lin ID [id number] EXAMINATION TYPE: Chest X-Ray 1 View DATE OF EXAM: 12/09/2023 COMPARISON: Reviewed during PACS downtime, no comparisons available. INDICATION: CHF TECHNIQUE: Single frontal view of the chest is obtained. FINDINGS: The heart size is normal. The pulmonary vasculature is within normal [id number]. There is a small left pleural effusion. Double-lumen catheter is on the right with the tips in the proximal right atrium IMPRESSION: 1. Small left pleural effusion.
--- NOTE | 2024-01-17 09:42 | CDI ---
Documentation Clarification Form Date: 01/17/2024 From: Eleanor De Souza RN, CCDS Phone: [phone] Admit Date: 11/20/2023 11:56:00 PM Patient Name: Chelle Lin Visit Number: [id number] Discharge Date: 12/24/2023 04:01:00 PM ATTENTION: The Clinical Documentation Specialists (CDI) and [facility] Coding Staff appreciate your assistance in clarifying documentation. Please respond to the clarification below the line at the bottom and electronically sign. The CDI & [facility] Coding staff will review the response and follow-up if needed. Please note: Queries are made part of the Legal Health Record. If you have any questions, please contact the author of this message via ITS. Doctor/Provider: Shawnee Subramanian Conflicting documentation has been found in the medical record. As the consulting physician please provide clarification. 12/13 ID Progress note: Patient with MRSA bacteremia with concern for possible right upper extremity cellulitis. Culture from the dialysis catheter has been negative so far. We will consider a 2-week course of IV Daptomycin with dialysis. 01/23 ID: patient with MRSA bacteremia questionably to the right upper extremity cellulitis and she was noted to have some swelling and redness to the right upper extremity subsequently did have persistent bacteremia concerning for dialysis catheter infection which has been discontinued and did clear her bacteremia and have a new left IJ catheter. 12/23 attending: Right upper extremity cellulitis with MRSA bacteremia that was persistent for quite some time, patient is current on Daptomycin infectious diseases following. History/Risk Factors: Diabetes Mellitus, Hyperlipidemia, Hypertension, Renal disease, Former smoker Clinical Indicators: 58-year-old female history of end-stage renal disease on dialysis patient has been brought to the hospital for swelling noticed worsening kidney function did have a right IJ dialysis-catheter placement. 11/19 VS: 139/77 82 22 97.8 11/09Labs: WBC 9.4 HGB 8.6, BUN 57, CR 2.37 GFR 22 Treatment: Daptomycin IV 350 MG Q 48 Hrs Culture from Dialysis tip sent Please clarify which diagnosis is most appropriate: [ ] Right upper extremity cellulitis with MRSA bacteremia from peripheral IV site. Culture from the dialysis catheter has been negative [x ] MRSA bacteremia from dialysis catheter infection [ ] Other (please specify) [ ] Unable to determine (Template Last Revised: June 2020) MTDD
== END 2023-12-24 16:01 | DRG 291 ==
LOC: EC 19:52 → 4SSUR 23:56
PROVIDERS: ADMIT Internal Medicine; ATTEND Internal Medicine
PROC: 5A1D70Z Performance of Urinary Filtration, Intermittent, Less than 6 Hours Per Day (ICD-10-PCS; 2023-11-22)
PROC: 02HV33Z Insertion of Infusion Device into Superior Vena Cava, Percutaneous Approach (ICD-10-PCS; principal; 2023-11-22 10:35)
PROC: 30233N1 Transfusion of Nonautologous Red Blood Cells into Peripheral Vein, Percutaneous Approach (ICD-10-PCS; 2023-12-04)
PROC: 02PY33Z Removal of Infusion Device from Great Vessel, Percutaneous Approach (ICD-10-PCS; 2023-12-09)
PROC: 02HV33Z Insertion of Infusion Device into Superior Vena Cava, Percutaneous Approach (ICD-10-PCS; 2023-12-18)
DX: I13.2 Hypertensive heart and chronic kidney disease with heart failure and with stage 5 chronic kidney disease, or end stage renal disease (principal); I50.23 Acute on chronic systolic (congestive) heart failure; T80.211A Bloodstream infection due to central venous catheter, initial encounter; J96.21 Acute and chronic respiratory failure with hypoxia; N17.0 Acute kidney failure with tubular necrosis; N18.6 End stage renal disease; J96.01 Acute respiratory failure with hypoxia; R78.81 Bacteremia; J44.1 Chronic obstructive pulmonary disease with (acute) exacerbation; D62 Acute posthemorrhagic anemia; L03.113 Cellulitis of right upper limb; T82.838A Hemorrhage due to vascular prosthetic devices, implants and grafts, initial encounter; I27.20 Pulmonary hypertension, unspecified; E11.649 Type 2 diabetes mellitus with hypoglycemia without coma; I42.8 Other cardiomyopathies; E11.22 Type 2 diabetes mellitus with diabetic chronic kidney disease; E11.40 Type 2 diabetes mellitus with diabetic neuropathy, unspecified; Z79.4 Long term (current) use of insulin; Z99.2 Dependence on renal dialysis; I72.4 Aneurysm of artery of lower extremity; E11.65 Type 2 diabetes mellitus with hyperglycemia; D63.1 Anemia in chronic kidney disease; I95.9 Hypotension, unspecified; Z86.74 Personal history of sudden cardiac arrest; Z79.02 Long term (current) use of antithrombotics/antiplatelets; G25.81 Restless legs syndrome; E03.9 Hypothyroidism, unspecified; I08.1 Rheumatic disorders of both mitral and tricuspid valves; E87.5 Hyperkalemia; F41.9 Anxiety disorder, unspecified; I25.10 Atherosclerotic heart disease of native coronary artery without angina pectoris; E78.2 Mixed hyperlipidemia; I25.5 Ischemic cardiomyopathy; K21.9 Gastro-esophageal reflux disease without esophagitis; K62.3 Rectal prolapse; S82.841A Displaced bimalleolar fracture of right lower leg, initial encounter for closed fracture; M89.8X9 Other specified disorders of bone, unspecified site; B95.62 Methicillin resistant Staphylococcus aureus infection as the cause of diseases classified elsewhere; R04.0 Epistaxis; W18.30XA Fall on same level, unspecified, initial encounter; Y92.239 Unspecified place in hospital as the place of occurrence of the external cause; Y71.1 Therapeutic (nonsurgical) and rehabilitative cardiovascular devices associated with adverse incidents; Z96.641 Presence of right artificial hip joint; Z79.82 Long term (current) use of aspirin; Z79.899 Other long term (current) drug therapy; Z95.5 Presence of coronary angioplasty implant and graft; Z79.84 Long term (current) use of oral hypoglycemic drugs; Z79.890 Hormone replacement therapy; Z87.891 Personal history of nicotine dependence; Z86.14 Personal history of Methicillin resistant Staphylococcus aureus infection; Z91.81 History of falling; Z86.69 Personal history of other diseases of the nervous system and sense organs
CPT/HCPCS: 36415; 36558; 71045; 71046; 80053; 83540; 83550; 83735; 83880; 84132; 84484; 85025; 85610; 85730; 86706; 87040; 87077; 87186; 87340; 90935; 93005; 94640; 94760; 96374; 96375; 96376; 99285

== ENCOUNTER 2024-01-03 08:46 | Inpatient (IN) | payer MEDICARE, OTHER ==
--- NOTE | 2024-01-03 09:05 | ED ---
Recheck HPI <Manav Case - Last Filed: 01/03/24 14:12> - General Source: patient, RN notes reviewed, old records reviewed Mode of arrival: EMS Limitations: no limitations <Salma Rivera - Last Filed: 01/03/24 14:52> - General Chief Complaint: Recheck/Abnormal Lab/Rx Stated Complaint: Dialysis cath issue Time Seen by Provider: 01/03/24 09:04 - History of Present Illness Initial Comments: 58-year-old female presented to the ER with a chief complaint of dialysis catheter issue. Patient states while at dialysis this morning she noticed the catheter was loose dislodged presented to the ER. She states catheter was placed recently. Upon chart review catheter was placed by Dr. Dale on 2023 due to chronic renal failure. Patient does attend dialysis Saturday. Last treatment Saturday. Patient states she has only had 1 weeks worth of dialysis. Patient received Xanax by dialysis for anxiety. Patient denies any acute complaints. Denies any recent fevers, chills or night sweats. She does report tightness in her legs likely to fluid. Denies chest pain, shortness of breath, or abdominal pain. (Salma Rivera) - Related Data Home Medications Medication Instructions Recorded Confirmed Ipratropium-Albuterol Nebulize 3 ml INHALATION RT-Q6H PRN 10/09/23 01/03/24 [Duoneb 0.5 mg-3 mg/3 ml Soln] Multivitamins, Thera [Multivitamin 1 tab PO DAILY@79910/09/23 01/03/24 (formulary)] Insulin Lispro [humaLOG Kwikpen] See Protocol SQ AC-TID@11/21/23 01/03/24 Levothyroxine Sodium [Synthroid] 75 mcg PO DAILY@59911/21/23 01/03/24 ALPRAZolam [Xanax] 0.25 mg PO MOWEFR@0500 01/03/24 01/03/24 Aspirin 81 mg PO DAILY@79901/03/24 01/03/24 Atorvastatin [Lipitor] 40 mg PO HS@199901/03/24 01/03/24 Clopidogrel [Plavix] 75 mg PO DAILY@99901/03/2401/02/24 Docusate [Colace] 100 mg PO BID@0800,199901/03/24 01/03/24 Folic Acid 1 mg PO DAILY@0800 01/03/24 01/03/24 Furosemide [Lasix] 80 mg PO TID@0600,1400,199901/03/24 01/03/24 Gabapentin [Neurontin] 100 mg PO BID@0500,1700 01/03/24 01/03/24 HYDROcodone/APAP 7.5-325MG [Gile 1 tab PO Q6H PRN 01/03/24 01/03/24 7.5-325] Melatonin 5 mg PO HS@199901/03/24 01/03/24 Midodrine [ProAmatine] 5 mg PO BID@0800,1600 PRN 01/03/24 01/03/24 Pantoprazole [Protonix] 40 mg PO DAILY@0800 01/03/24 01/03/24 Thiamine [Vitamin B-1] 100 mg PO DAILY@0801/03/24 01/03/24 hydrALAZINE HCL [Apresoline] 25 mg PO BID@0800,199901/03/24 01/03/24 rOPINIRole HCL [Requip] 2 mg PO HS@199901/03/24 01/03/24 Previous Rx's Medication Instructions Recorded Calcium Acetate [PhosLo] 667 mg PO TID-W/MEALS tab 10/21/23 Allergies Allergy/AdvReac Type Severity Reaction Status Date / Time No Known Allergies Allergy Verified 01/03/24 10:58 Review of Systems ROS Other: All systems not noted in ROS Statement are negative. <Manav Case - Last Filed: 01/03/24 14:12> ROS Other: All systems not noted in ROS Statement are negative. <Salma Rivera - Last Filed: 01/03/24 14:52> ROS Statement: Those systems with pertinent positive or pertinent negative responses have been documented in the HPI. Past Medical History Past Medical History: Diabetes Mellitus, Hyperlipidemia, Hypertension, Renal Disease Additional Past Medical History / Comment(s): restless leg, neurothopy, Guillain-[place], dialysis History of Any Multi-Drug Resistant Organisms: None Reported Past Surgical History: Orthopedic Surgery, Tonsillectomy Additional Past Surgical History / Comment(s): "plate in left leg to straighten leg as a child" - plate removed, right total hip replacement due to a fracture from a fall, dialysis Past Anesthesia/Blood Transfusion Reactions: No Reported Reaction Past Psychological History: No Psychological Hx Reported Smoking Status: Former smoker Past Alcohol Use History: None Reported Past Drug Use History: None Reported <MiguelSalma - Last Filed: 01/03/24 14:52> General Exam Limitations: no limitations General appearance: alert, in no apparent distress Respiratory exam: Present: normal lung sounds bilaterally, chest wall tenderness (Left side just inferior to clavicle there is a 2 cm surgical incision with sutures in place. There is surrounding edema and erythema. Mild purulent drainage. No catheter in place. Tender and warm to touch.). Absent: respiratory distress, wheezes, rales, rhonchi, stridor Cardiovascular Exam: Present: regular rate, normal rhythm, normal heart sounds. Absent: systolic murmur, diastolic murmur, rubs, gallop, clicks GI/Abdominal exam: Present: soft, normal bowel sounds. Absent: distended, tenderness, guarding, rebound, rigid Extremities exam: Present: normal inspection, full ROM, normal capillary refill. Absent: tenderness, pedal edema, joint swelling, calf tenderness <Salma Rivera - Last Filed: 01/03/24 14:52> Course <Salma Rivera - Last Filed: 01/03/24 14:52> Vital Signs 01/03/24 01/03/24 01/03/24 08:47 09:20 11:18 Temperature 97.4 F L Pulse Rate 71 66 75 Respiratory 16 14 20 Rate Blood Pressure 113/69 131/75 161/80 O2 Sat by Pulse 100 98 Oximetry - Reevaluation(s) Reevaluation #1: 01/03/24 10:47 Case discussed with on-call nephrology, Dr. Nunez, who advised on consulting vascular for port replacement and outpatient follow-up. 01/03/24 11:02 Case discussed with on-call vascular, Dr. Diaz who refused consult and advised on consulting Dr. Dale. 01/03/24 11:[address] Dale who states he will come evaluate patient at bedside. 01/03/24 12:[address] Dale who will take patient to the [facility] for dialysis catheter replacement. 01/03/24 13:00 Patient taken to [facility] for dialysis port placement in stable condition. (Salma iRvera) Medical Decision Making - Lab Data Result diagrams: 01/03/24 09:10 01/03/24 09:10 <Manav Case - Last Filed: 01/03/24 14:12> - Lab Data Result diagrams: 01/03/24 09:10 01/03/24 09:10 - Radiology Data Radiology results: report reviewed, image reviewed <Salma Rivera - Last Filed: 01/03/24 14:52> - Medical Decision Making I was notified by [facility] team that patient had coded in the [facility] and will require ICU admission. We were not present for the CODE BLUE. Case discussed with Dr. Parks who is willing to accept patient care to the ICU. Case also discussed with Dr. Mina who is willing to be the hospitalist. (Manav Case) Was pt. sent in by a medical professional or institution (, PA, BUSINESS SERVICES INTERN, urgent care, hospital, or senior care...) When possible be specific @ -No Did you speak to anyone other than the patient for history (EMS, parent, family, police, friend...)? What history was obtained from this source @ -No Did you review nursing and triage notes (agree or disagree)? Why? @ -I reviewed and agree with nursing and triage notes Were old charts reviewed (outside hosp., previous admission, EMS record, old EKG, old radiological studies, urgent care reports/EKG's, senior care records)? Report findings @ -No old charts were reviewed Differential Diagnosis (chest pain, altered mental status, abdominal pain women, abdominal pain men, vaginal bleeding, weakness, fever, dyspnea, syncope, headache, dizziness, GI bleed, back pain, seizure, CVA, palpatations, mental health, musculoskeletal)? @ -Dialysis port clogged, dialysis port dislodged, infection, sepsis This list is not meant to be all-inclusive EKG interpreted by me (3pts min.). @ -None done X-rays interpreted by me (1pt min.). @ -Chest x-ray stable left lower lobe consolidation and small pleural effusion. CT interpreted by me (1pt min.). @ -None done U/S interpreted by me (1pt. min.). @ -None done What testing was considered but not performed or refused? (CT, X-rays, U/S, labs)? Why? @ -None What meds were considered but not given or refused? Why? @ -None Did you discuss the management of the patient with other professionals (professionals i.e. Dr., PA, BUSINESS SERVICES INTERN, lab, RT, psych nurse, director social welfare, transmission inspector, teacher, ground defence officer, caser in)? Give summary @ -Case discussed with Dr. Nunez who advised on dialysis port replacement and outpatient follow-up if patient had no other complaints. Case discussed with [facility] Dr. Garcia who refused port placement he advised reaching out to Dr. Dale for placement. I discussed this case with Dr. Dale who will take patient to mini lab operator for dialysis catheter placement. Patient taken to mini lab operator at 13:00. Was smoking cessation discussed for >3mins.? @ -No Was critical care preformed (if so, how long)? @ -No Were there social determinants of health that impacted care today? How? (Homelessness, low income, unemployed, alcoholism, drug addiction, transportation, low edu. Level, literacy, decrease access to med. care, longterm, rehab)? @ -No Was there de-escalation of care discussed even if they declined (Discuss DNR or withdrawal of care, Hospice)? DNR status @ -No What co-morbidities impacted this encounter? (DM, HTN, Smoking, COPD, CAD, Cancer, CVA, ARF, Chemo, Hep., AIDS, mental health diagnosis, sleep apnea, morb id obesity)? @ -Renal disease Was patient admitted / discharged? Hospital course, mention meds given and route, prescriptions, significant lab abnormalities, going to OR and other pertinent info. @ -Admitted. 58-year-old female presented to the ER via EMS for evaluation of dialysis catheter dislodged. History and physical exam completed. Vitals upon examination within normal limits. Patient in no signs of acute distress and nontoxic-appearing. Patient had no acute complaints at that time. Exam remarkable for a 2 cm surgical incision just inferior to left clavicle. There is mild surrounding erythema and purulent drainage. Sutures in place. Normal heart sounds. 2+ bilateral pretibial pitting edema likely due to patient requiring dialysis today. Laboratory studies obtained appear to be at patient's baseline showing a normocytic normochromic anemia hemoglobin 8.2 which is improved from 12-25-2023. Hyponatremia 133, potassium 4.6. Chronic kidney disease (BUN 47, creatinine 3.35 with a GFR of 13) which is likely elevated as patient is due for dialysis today. Chest x-ray showing stable left lower lobe consolidation with a small pleural effusion. There is an increased density along the left upper mediastinal is nonspecific. Case was initially discussed with Dr. Nunez at 1043, nephrology, who advised on outpatient treatment if only complaint was dialysis catheter dislodgment. I discussed case with on-call vascular at 1056, Dr. Garcia for catheter placement who refused and stated to reach out to Dr. Dale. Dr. Dale contacted at 1122 who will come to the emergency department to evaluate patient at bedside. Dr. Dale agreed to replace catheter and will take patient to [facility] for placement at [phone] patient transported to mini lab operator in stable condition. I was informed patient had a CODE BLUE during catheter placement in the mini lab operator. I was not present during CODE BLUE. Admission orders requested for ICU placement. Dr. Mina and Dr. Bruce del rioian informed of patient by my attending Dr. Case. Admission orders placed by my attending, Dr. Case. Undiagnosed new problem with uncertain prognosis? @ -No Drug Therapy requiring intensive monitoring for toxicity (Heparin, Nitro, Insulin, Cardizem)? @ -No Were any procedures done? @ -No Diagnosis/symptom? @ -Dialysis catheter dislodged Acute, or Chronic, or Acute on Chronic? @ -Acute Uncomplicated (without systemic symptoms) or Complicated (systemic symptoms)? @ -Complicated Side effects of treatment? @ -No Exacerbation, Progression, or Severe Exacerbation? @ -No Poses a threat to life or bodily function? How? (Chest pain, [place], [place], pneumonia, PE, COPD, DKA, ARF, appy, cholecystitis, CVA, Diverticulitis, Homicidal, Suicidal, threat to staff... and all critical care pts) @ -Yes, cardiac arrest is life-threatening. (Salma Rivera) - Lab Data Lab Results 01/03/24 01/03/24 Range/Units 09:10 09:10 WBC 5.6 (3.8-10.6) k/uL RBC 3.00 L (3.80-5.40) m/uL Hgb 8.2 L (11.4-16.0) gm/dL Hct 27.7 L (34.0-46.0) % MCV 92.2 (80.0-100.0) fL MCH 27.2 (25.0-35.0) pg MCHC 29.4 L (31.0-37.0) g/dL RDW 18.2 H (11.5-15.5) % Plt Count 228 (150-450) k/uL MPV 9.6 Neutrophils % (Manual) 67 % Lymphocytes % (Manual) 19 % Monocytes % (Manual) 11 % Eosinophils % (Manual) 3 % Neutrophils # (Manual) 3.75 (1.3-7.7) k/uL Lymphocytes # (Manual) 1.06 (1.0-4.8) k/uL Monocytes # (Manual) 0.62 (0-1.0) k/uL Eosinophils # (Manual) 0.17 (0-0.7) k/uL Nucleated RBCs 0 (0-0) /100 WBC Manual Slide Review Performed Hypochromasia Marked Poikilocytosis Slight Anisocytosis Slight Sodium 133 L (137-145) mmol/L Potassium 4.6 (3.5-5.1) mmol/L Chloride 97 L (98-107) mmol/L Carbon Dioxide 26 (22-30) mmol/L Anion Gap 10 mmol/L BUN 47 H (7-17) mg/dL Creatinine 3.58 H (0.52-1.04) mg/dL Est GFR (CKD-EPI)AfAm 15 (>60 ml/min/1.73 sqM) Est GFR (CKD-EPI)NonAf 13 (>60 ml/min/1.73 sqM) Glucose 213 H (74-99) mg/dL Calcium 8.1 L (8.4-10.2) mg/dL Total Bilirubin 0.8 (0.2-1.3) mg/dL AST 27 (14-36) U/L ALT 13 (4-34) U/L Alkaline Phosphatase 203 H (38-126) U/L Total Protein 7.2 (6.3-8.2) g/dL Albumin 3.2 L (3.5-5.0) g/dL Disposition <Manav Case - Last Filed: 01/03/24 14:12> Time of Disposition: 14:50 <Salma Rivera - Last Filed: 01/03/24 14:52> Clinical Impression: Displacement of vascular dialysis catheter Disposition: ADMITTED IP TO THIS HOSP Condition: Serious
[2024-01-03 09:47] LABS: Anisocytosis Slight; HCT 27.7 % (34.0-46.0); HGB 8.2 gm/dL (11.4-16.0); Hypochromasia Marked; MCH 27.2 pg (25.0-35.0); MCHC 29.4 g/dL (31.0-37.0); MCV 92.2 fL (80.0-100.0); Mean Platelet Volume 9.6; Platelet Count 228 k/uL (150-450); Poikilocytosis Slight; RDW 18.2 % (11.5-15.5); WBC 5.6 k/uL (3.8-10.6)
[2024-01-03 09:50] LABS: ALT 13 U/L (4-34); AST 27 U/L (14-36); African American GFR (CKD) 15 (>60 ml/min/1.73 sqM); Albumin 3.2 g/dL (3.5-5.0); Alkaline Phosphatase 203 U/L (38-126); Anion Gap 10 mmol/L; Blood Urea Nitrogen 47 mg/dL (7-17); Calcium 8.1 mg/dL (8.4-10.2); Carbon Dioxide 26 mmol/L (22-30); Chloride 97 mmol/L (98-107); Glucose 213 mg/dL (74-99); Non-African American GFR(CKD) 13 (>60 ml/min/1.73 sqM); Potassium 4.6 mmol/L (3.5-5.1); Sodium 133 mmol/L (137-145); Total Bilirubin 0.8 mg/dL (0.2-1.3); Total Protein 7.2 g/dL (6.3-8.2)
[2024-01-03 10:17] LABS: Eosinophils # (M) 0.17 k/uL (0-0.7); Lymphocytes # (M) 1.06 k/uL (1.0-4.8); Monocytes # (M) 0.62 k/uL (0-1.0); Neutrophils # (M) 3.75 k/uL (1.3-7.7); Neutrophils % (M) 67 %; Nucleated Red Blood Cells 0 /100 WBC (0-0); Total Cells Counted 100
--- NOTE | 2024-01-03 10:50 | XR ---
EXAMINATION TYPE: XR chest 1V DATE OF EXAM: 01/03/2024 COMPARISON: 12/18/2023 HISTORY: Dialysis catheter removal TECHNIQUE: Single frontal view of the chest is obtained. FINDINGS: No sizable pneumothorax. Left lower lobe infiltrate and small effusion. Heart is enlarged. Atherosclerotic change of the aorta. Osteopenia. No pneumothorax. No overt failure. Improved aeratio n right lung base. Soft tissue calcification within the neck likely related to carotid artery atheros clerotic changes. IMPRESSION: 1. Stable left lower lobe consolidation and small effusion. There is increased density along the left upper mediastinum which is nonspecific. Would recommend PA and lateral view of the chest. 2. No sizable pneumothorax.
[2024-01-03] MEDS: HYDROcodone/APAP 7.5-325MG 1 EACH TAB PO ONE (11:15)
[2024-01-03] MEDS ORDERED: HEPARIN SODIUM 1,000 UN/ML (10ML VL) ONE ×2 (13:15→14:08)
[2024-01-03] MEDS: SODIUM CHLORIDE 0.9% 250 ML IV ONE (13:35)
[2024-01-03] MEDS: MIDAZOLAM 2 MG/2 ML VIAL IVP ONE (13:37)
[2024-01-03] MEDS: LIDOCAINE 1% INJ 10MG/ML (20 ML MDV) ONE (13:38)
[2024-01-03] MEDS ORDERED: fentaNYL (PF) 50 MCG/ML 2 ML AMP ONE (13:39)
[2024-01-03] MEDS: fentaNYL (PF) 50 MCG/ML 2 ML AMP IVP ONE (13:40)
[2024-01-03] MEDS ORDERED: NALOXONE 0.4 MG/ML 1 ML VIAL ONE (13:51)
[2024-01-03] MEDS ORDERED: SODIUM BICARB 8.4% 50 ML SYR (1 MEQ/ML) ONE (13:52)
[2024-01-03] MEDS ORDERED: EPINEPHrine 10 ML SYRINGE (0.1 MG/ML) ONE (13:52)
[2024-01-03] MEDS ORDERED: NALOXONE 1 MG/ML 2 ML SYRINGE ONE (13:52)
[2024-01-03] MEDS ORDERED: IPRATROPIUM-ALBUTEROL 3 ML NEB INHALATION PRN (14:07)
[2024-01-03] MEDS ORDERED: NALOXONE 0.4 MG/ML 1 ML VIAL IV PRN (14:07)
[2024-01-03] MEDS: SODIUM CHLORIDE 0.9% 1,000 ML IV ONE (14:20)
[2024-01-03] MEDS: HEPARIN SODIUM 1,000 UN/ML (10ML VL) IVP ONE (14:25)
--- NOTE | 2024-01-03 14:56 | IR ---
EXAMINATION TYPE: IR cvc insert non tunneled DATE OF EXAM: 01/03/2024 COMPARISON: NONE HISTORY: Fluoroscopy time. Fluoroscopy was provided to the referring clinician.
[2024-01-03 15:03] LABS: Glucose,Whole Blood 176 mg/dL (70-110)
--- NOTE | 2024-01-03 15:17 | XR ---
EXAMINATION TYPE: XR chest 1V portable DATE OF EXAM: 01/03/2024 COMPARISON: 01/03/2024 HISTORY: Tube placement TECHNIQUE: Single frontal view of the chest is obtained. FINDINGS: ET tube approximately 2 cm above the sonam. NG tube seen coursing in the left upper quadr ant. Diffuse bilateral infiltrate with pleural effusion, cardiomegaly and atherosclerotic change aort a. Density along the upper margin of the left aortic arch is stable from preprocedural exam. Of uncer tain etiology. IMPRESSION: 1. Postoperative changes correlate for CHF with bilateral postoperative atelectasis and pleural effus ion favored over pneumonia.
--- NOTE | 2024-01-03 15:40 | CONS ---
History of Present Illness History of present illness: 74-year-old white female came to the emergency room patient had a dialysis yesterday he woke up this morning and dialysis catheter was missing patient came to the emergency room had a chest x-ray and no catheter was seen. And patient does not remember how it came out this catheter was put 18 in December 17 left jugular approach Potassium is 4.7 calcium consulted for placement of a dialysis catheter. Medical history history of atrial fibrillation on Plavix chronic renal failure on dialysis Patient was seen in the emergency room neck is supple trachea central chest is clear to auscultation Abdomen soft nontender Vascular brachial radial and femoral pulses are present chest x-ray shows no evidence of dialysis catheter Discussed with nephrology recommended patient have a dialysis catheter and she can go home for dialysis tomorrow risk and complication discussed bleeding infection Past Medical History Past Medical History: Atrial Fibrillation, Heart Failure, COPD, Diabetes Mellitus, Eye Disorder, Hyperlipidemia, Hypertension, Prostate Disorder, Sleep Apnea/CPAP/BIPAP, Thyroid Disorder Additional Past Medical History / Comment(s): HX PVC'S. MILD COPD. ANEMIA. HX KIDNEY STONES. BPH. HAD DIABETIC RETINOPATHY TX ON EYES. HAS HAD PICC LINE IN PAST, NOW OUT. CHRONIC BACK AND KNEE PAIN, lymphedema bilateral legs History of Any Multi-Drug Resistant Organisms: None Reported Past Surgical History: Orthopedic Surgery Additional Past Surgical History / Comment(s): RT THYROIDECTOMY. MASS FROM BACK, FATTY TUMOR. NASAL MASS REMOVED. LASER EYES, INTRAOCULAR LENS. WOUND ON RT FOOT I&D. LEFT KNEE ARTHROSCOPY, multiple CYST REMOVED FROM TAILBONE Past Anesthesia/Blood Transfusion Reactions: Previous Problems w/ Anesthesia Additional Past Anesthesia/Blood Transfusion Reaction / Comm: OCC TAKES LONG TIME TO AWAKEN. Past Psychological History: No Psychological Hx Reported Smoking Status: Former smoker Past Alcohol Use History: None Reported Past Drug Use History: None Reported - Past Family History Mother Family Medical History: COPD Father Family Medical History: Diabetes Mellitus Additional Family Medical History / Comment(s): heart failure MTDD
--- NOTE | 2024-01-03 15:43 | OP ---
Description of Procedure: Patient is brought to the [facility] this patient has history of chronic renal failure patient had a dialysis cath catheter in the left IJ according to the patient catheter came out patient was brought to the operating room this patient has a right IJ access in the past found to have a clot or fibrin sheath patient left ankle was prepped and draped in Prestel manner 1% lidocaine for infiltrated patient received 1 mg of Versed and 50 mg of fentanyl nasal oxygen ultrasound- guided micropuncture introduced left jugular vein micropuncture guide was passed under fluoroscopy control. Then a tunnel was created through the tunnel we brought 90 cm dialysis catheter at this point patient developed respiratory arrest and was called in patient was intubated by the anesthesia and internal medicine medicine was running the code for details please see the sheath of the "arrest in detail. Patient came in normal nerves sinus rhythm at this point to be decided to put a temporary cath in the right groin and guidewire was removed from the left IJ right groin was prepped and draped in Prestel manner 1% lidocaine were infiltrated ultrasound-guided micropuncture entry into the right common femoral vein micropuncture guide was passed and 4 point dilator advanced up the guidewire then we passed a regular guidewire under fluoroscopy fluoroscopy control dilator was advanced. The guidewire then replaced 20 cm dialysis catheter top of guidewire guidewire was removed flushed with heparin saline hep-locked secured with 3 nylon patient was transferred to the intensive care unit satisfactory condition MTDD
[2024-01-03 15:47] LABS: ABG Base Excess 2.5 mmol/L; ABG HCO3 28 mmol/L (21-25); ABG Oxygen Saturation 91.9 % (94-97); ABG PCO2 49 mmHg (35-45); ABG PH 7.37 (7.35-7.45); ABG PO2 63 mmHg (83-108); ABG TCO2 30 mmol/L (19-24); Allen Test Performed? Yes
[2024-01-03] MEDS ORDERED: VANCOMYCIN IV PER PHARMACY 1 EACH MISC MISCELLANE PRN (15:59)
[2024-01-03] MEDS ORDERED: MIDODRINE 5 MG TAB PO PRN (16:00)
--- NOTE | 2024-01-03 16:03 | P.HPIM ---
History of Present Illness H&P Date: 01/03/24 Chief Complaint: Acute hypoxemic respiratory failure due to PEA/cardiac arrest HISTORY OF PRESENT ILLNESS: This is a 58-year-old female with a previous medical history significant for coronary artery disease status post PCI of the RCA 2023 with ischemic cardiomyopathy, hypertension and hypertensive cardiovascular disease, hyperlipidemia, diabetes mellitus type 2 uncontrolled, fracture of the right medial and lateral malleolus, anemia of chronic kidney disease, COPD, epistaxis, chronic kidney disease stage 4 due to cardiorenal syndrome she ended up getting started on dialysis on the last hospital admission about a month ago when she was admitted to the hospital with fluid overload and acute systolic heart failure and worsening renal failure despite aggressive diuresis, and using significant amount of diuretics, patient ended up going on dialysis she had a permanent catheter placed in the right internal jugular vein, and patient developed to have a significant MRSA bacteremia that required removal of the dialysis catheter and subsequently she was treated with IV antibiotic for a total I believe of 4 weeks of IV antibiotic in the form of daptomycin, patient blood cultures normalizes, the patient ended up having another permacatheter placed in the left internal jugular vein, and the patient was discharged to [facility] and she has been there she has been going to dialysis at [facility] and she has been doing fine apparently patient underwent dialysis yesterday, and she had pulled her dialysis catheter today she ended up coming to the ER for evaluation she was taken to the [facility] for replacement of the the left internal jugular catheter but the patient became quite agitated, and she went into pulseless electrical activity she did receive 2 epinephrine, she was intubated at the [facility], she was admitted to the ICU, she was admitted under my service, with consultation to Dr. Romo from intensive care unit, patient is currently being seen in the ICU, she is currently on the ventilator, she is sedated with Precedex, and had a chest x-ray in the ICU that showed evidence of significant pulmonary vascular congestion as well as bilateral pulmonary infiltrates, patient may have had aspirated, she will be started on Zosyn 3.375 g of piggyback every 8 hours as well as vancomycin pharmacy to dose its peak and trough, patient will have a sputum culture, blood culture, urine culture, and she will be seen in consultation by newspaper editor, she will be seen in consultation by infectious disease Dr. Subramanian as well. REVIEW OF SYSTEMS: Patient is currently sedated on the ventilator. Constitutional: No documented fever, no chills, no night sweats. No weight change. No weakness, fatigue or lethargy. No daytime sleepiness. EENT: No headache. No blurred vision or double vision, no loss of vision. No loss of Hearing, no ringing in the ears, no dizziness. No nasal drainage or congestion. No epistaxis. No sore throat. Lungs: No shortness of breath, no cough, no sputum production. No wheezing. Reports dyspnea with activity. Cardiovascular: No chest pain, no lower extremity edema. No palpitations. No paroxysmal nocturnal dyspnea. No orthopnea. No lightheadedness or dizziness. No syncopal episodes. Abdominal: Reports abdominal pain. No nausea, vomiting. No diarrhea. No constipation. No bloody or tarry stools reports loss of appetite. Genitourinary: No dysuria, increased frequency, urgency. No urinary retention. Musculoskeletal: No myalgias. No muscle weakness, no gait dysfunction, no frequent falls. No back pain. No neck pain. Integumentary: No wounds, no lesions. No rash or pruritus. No unusual bruising. No change in hair or nails. Neurologic: No aphasia. No facial droop. No change in mentation. No head injury. No headache. No paralysis. No paresthesia. Psychiatric: No depression. No anxiety. No mood swings. Endocrine: No abnormal blood sugars. No weight change. PAST MEDICAL HISTORY: Coronary artery disease status post PCI of the RCA in May 2023 Hypertension and hypertensive cardiovascular disease. Mixed hyperlipidemia. Diabetes mellitus type 2. Chronic kidney disease stage IIIb. Ischemic cardiomyopathy. Severe pulmonary hypertension. COPD. Guillain-[place] syndrome. Anemia of chronic kidney disease. Iron deficiency anemia. Right heel ulcer Subacute medial and lateral malleolus fracture. Restless leg syndrome. PAST SURGICAL HISTORY: History of plate placed in the left leg with hardware removal. Left total hip arthroplasty. Dialysis catheter placement and removal. SOCIAL HISTORY: Patient used to smoke about a pack every day, currently non-smoker she denies any alcohol ingestion, no drug use or abuse. FAMILY HISTORY: PHYSICAL EXAMINATION: General: 58-year-old female sitting up in bed in the ICU intubated sedated with Precedex HEENT: Head is atraumatic, normocephalic, pupils were equal round , sclera nonicteric, conjunctivae were pale, mucous membranes of the mouth are somewhat dry, ET tube in place. Neck: Supple, Increased JVP, normal carotid upstroke bilaterally, no lymphadenopathy. Chest: Decreased breath sounds at the bases, few rhonchi, moderate minimal expiratory wheezes, no chest wall tenderness, moderate intercostal retractions. Heart: First heart sound is normal, second heart sound is normal there is systolic ejection murmur 2/6 located in the left sternal border. Abdomen: Soft, nontender, nondistended, positive bowel sounds increased abdominal wall edema. Extremities: There is +2 edema no calf tenderness DP +1 bilaterally. Right ear scab. Neurologic examination: Patient is sedated on the ventilator. ASSESSMENT AND PLAN: 1. Acute hypoxemic vent dependent respiratory failure due to cardiac arrest/ pulseless electrical activity status post 2 epinephrine via ACLS protocol. Patient did regain rhythm she is currently in sinus rhythm, monitor the patient very closely, check the patient troponin, check the patient D-dimer, check the patient labs very closely cardiology consultation will be obtained. 2. Acute on chronic systolic heart failure. Start the patient on Lasix 80 mg IV push every 8 hours, nephrology consultation from Dr. Nunez for hemodialysis ordered. Continue patient on hydralazine 25 mg per oral gastric tube twice every day, monitor the patient very closely. 3. Acute hypoxemic respiratory failure due to cardiac arrest as well as possible aspiration pneumonia. Start the patient on Zosyn 3.375 g piggyback every 8 hours, start the patient on vancomycin 1 g IV piggyback x 1 pharmacy to dose its peak and trough, sputum culture, blood culture, pulmonary consultation, start the patient on DuoNeb 3 mL nebulization 4 times every day, start the patient on Solu-Medrol 60 mg IV push every 6 hours, 4. Coronary artery disease status post PCI of the RCA. Continue patient on aspirin 81 mg once every day, Plavix 75 mg via orogastric tube, atorvastatin 40 mg via oral gastric tube once every day. Cardiology consultation. 5. Hypertension and hypertensive cardiovascular disease. Continue hydralazine 25 mg via OGT twice every day, monitor the patient blood pressure very closely. 6. Mixed hyperlipidemia. Continue patient on atorvastatin 40 mg OGT, monitor lipid panel, keep LDL 55-70. 7. Diabetes mellitus type 2. Continue patient on sliding scale insulin. 8. Close leg syndrome. Continue ropinirole 2 mg OGT at bedtime. 9. Anemia of chronic kidney disease. Continue to monitor the patient CBC. 10. Hypothyroidism. Continue levothyroxine 75 mcg OGT once every day. 11. COPD exacerbation continue patient on DuoNeb 3 mm laceration 4 times every day, continue oxygen 2 L nasal cannula, Solu-Medrol 60 mg IVP q 6 h 12. Chronic hypoxemic respiratory failure due to combination of nonischemic cardiomyopathy and COPD. Continue treatment as in the first and second paragraph. 13. Subacute fracture of the medial and lateral malleolus currently in boot no surgical intervention is planned 14. GERD. Continue pantoprazole 40 mg IV push daily. 15. DVT prophylaxis. Heparin 5000 units subcutaneous every 12 hours. 16. Admit to inpatient. Estimated length of stay 2 midnights. 17. Full code. Past Medical History Past Medical History: Diabetes Mellitus, Hyperlipidemia, Hypertension, Renal Disease Additional Past Medical History / Comment(s): restless leg, neurothopy, Guillain-[place], dialysis History of Any Multi-Drug Resistant Organisms: None Reported Past Surgical History: Orthopedic Surgery, Tonsillectomy Additional Past Surgical History / Comment(s): "plate in left leg to straighten leg as a child" - plate removed, right total hip replacement due to a fracture from a fall, dialysis Past Anesthesia/Blood Transfusion Reactions: No Reported Reaction Past Psychological History: No Psychological Hx Reported Smoking Status: Former smoker Past Alcohol Use History: None Reported Past Drug Use History: None Reported Medications and Allergies Home Medications Medication Instructions Recorded Confirmed Type Ipratropium-Albuterol Nebulize 3 ml INHALATION RT-Q6H PRN 10/09/23 01/03/24 History [Duoneb 0.5 mg-3 mg/3 ml Soln] Multivitamins, Thera [Multivitamin 1 tab PO DAILY@0800 10/09/23 01/03/24 History (formulary)] Calcium Acetate [PhosLo] 667 mg PO TID-W/MEALS tab 10/21/23 01/03/24 Rx Insulin Lispro [humaLOG Kwikpen] See Protocol SQ AC-TID@08,12,16 11/21/23 01/03/24 History Levothyroxine Sodium [Synthroid] 75 mcg PO DAILY@0611/21/23 01/03/24 History ALPRAZolam [Xanax] 0.25 mg PO MOWEFR@0500 01/03/24 01/03/24 History Aspirin 81 mg PO DAILY@0801/03/24 01/03/24 History Atorvastatin [Lipitor] 40 mg PO HS@199901/03/24 01/03/24 History Clopidogrel [Plavix] 75 mg PO DAILY@1000 01/03/24 01/03/24 History Docusate [Colace] 100 mg PO BID@0800,199901/03/24 01/03/24 History Folic Acid 1 mg PO DAILY@0801/03/24 01/03/24 History Furosemide [Lasix] 80 mg PO TID@0600,1400,199901/03/24 01/03/24 History Gabapentin [Neurontin] 100 mg PO BID@0500,1700 01/03/24 01/03/24 History HYDROcodone/APAP 7.5-325MG [[place] 1 tab PO Q6H PRN 01/03/24 01/03/24 History 7.5-325] Melatonin 5 mg PO HS@199901/03/24 01/03/24 History Midodrine [ProAmatine] 5 mg PO BID@0800,1600 PRN 01/03/24 01/03/24 History Pantoprazole [Protonix] 40 mg PO DAILY@0801/03/24 01/03/24 History Thiamine [Vitamin B-1] 100 mg PO DAILY@0800 01/03/24 01/03/24 History hydrALAZINE HCL [Apresoline] 25 mg PO BID@08,199901/03/24 01/03/24 History rOPINIRole HCL [Requip] 2 mg PO HS@199901/03/24 01/03/24 History Allergies Allergy/AdvReac Type Severity Reaction Status Date / Time No Known Allergies Allergy Verified 01/03/24 10:58 Physical Exam Vitals: Vital Signs Temp Pulse Resp BP Pulse Ox FiO2 01/03/24 14:49 100 01/03/24 14:41 100 01/03/24 14:09 100 01/03/24 14:00 100 01/03/24 11:18 75 20 161/80 98 01/03/24 09:20 66 14 131/75 01/03/24 08:47 97.4 F L 71 16 113/69 100 Intake and Output 01/03/24 01/03/24 01/03/24 06:59 14:59 22:59 Intake Total 220 Balance 220 Intake: IV 220 Other: Weight 68.266 kg Results CBC & Chem 7: 01/03/24 09:10 01/03/24 09:10 Labs: Abnormal Lab Results - Last 24 Hours (Table) 01/03/24 01/03/24 01/03/24 Range/Units 09:10 09:10 15:01 RBC 3.00 L (3.80-5.40) m/uL Hgb 8.2 L (11.4-16.0) gm/dL Hct 27.7 L (34.0-46.0) % MCHC 29.4 L (31.0-37.0) g/dL RDW 18.2 H (11.5-15.5) % Sodium 133 L (137-145) mmol/L Chloride 97 L (98-107) mmol/L BUN 47 H (7-17) mg/dL Creatinine 3.58 H (0.52-1.04) mg/dL Glucose 213 H (74-99) mg/dL POC Glucose (mg/dL) 176 H (70-110) mg/dL Calcium 8.1 L (8.4-10.2) mg/dL Alkaline Phosphatase 203 H (38-126) U/L Albumin 3.2 L (3.5-5.0) g/dL
[2024-01-03 16:23] LABS: Glucose,Whole Blood 176 mg/dL (70-110)
[2024-01-03 16:26] LABS: Appearance,Urine Turbid (Clear); Bacteria,Urine Many /hpf; Bilirubin,Urine Negative (Negative); Blood,Urine Moderate (Negative); Color,Urine Yellow; Glucose,Urine (UA) Negative (Negative); Ketones,Urine Negative (Negative); Leukocyte Esterase,Urine Large (Negative); Nitrite,Urine Negative (Negative); Protein,Urine 2+ (Negative); RBC,Urine 49 /hpf (0-5); Specific Gravity,Urine 1.018 (1.001-1.035); Urobilinogen,Urine <2.0 mg/dL (<2.0); WBC,Urine >182 /hpf (0-5)
[2024-01-03] MEDS: IPRATROPIUM-ALBUTEROL 3 ML NEB INHALATION SCH (16:35)
[2024-01-03] MEDS: VANCOMYCIN 1,250 MG in SODIUM CHLORIDE 0.9% 250 ML IVPB STA (16:54)
[2024-01-03] MEDS: CALCIUM ACETATE 667 MG TAB PO SCH (17:00)
[2024-01-03] MEDS: PIPERACILLIN-TAZOBACTAM 3.375 GM in SODIUM CHLORIDE 0.9% 100 ML IVPB SCH (17:05)
[2024-01-03] MEDS: FUROSEMIDE 10 MG/ML 10 ML VIAL IV SCH (17:05)
[2024-01-03] MEDS: PANTOPRAZOLE 40 MG/10 ML VIAL IVP SCH (17:05)
[2024-01-03] MEDS: GABAPENTIN 100 MG CAP PO SCH (17:06)
[2024-01-03] MEDS ORDERED: INSULIN ASPART (NovoLOG) 100 UNIT/ML VIAL SQ SCH (17:30)
[2024-01-03] MEDS ORDERED: methylPREDNISolone SOD SUCCI 125 MG/2 ML VIAL IV SCH (18:00)
[2024-01-03] MEDS: INSULIN ASPART (NovoLOG) 100 UNIT/ML VIAL SQ SCH (19:19)
--- NOTE | 2024-01-03 19:52 | P.CNPUL ---
History of Present Illness Consult date: 01/03/24 Chief complaint: Cardiac arrest History of present illness: 58-year-old female patient, multiple medical problems including end-stage renal disease was on hemodialysis also known to have coronary artery disease with previous PCI and stenting of the RCA and known history of ischemic cardiomyopathy comes into the emergency department after losing her hemodialysis catheter. Apparently, her last hemodialysis session was on 01/02/2024. Based on that, the patient came in to ED and the patient was taken to [facility] for insertion of a new hemodialysis catheter. While in [facility], the patient was given fentanyl and during the procedure, the patient became pulseless. Details are not available. It was noted that the patient was in a PEA rhythm. The patient was given CPR, 2 rounds of epi, intubated and there was return of spontaneous circulation. Following that, the patient was kept intubated and she was transferred to the intensive care unit for further care. At this point in time, the patient is sedated on propofol and she is hemodynamically stable on no pressors. Her current vent setting includes AC of 14, tidal volume of 400, FiO2 100% and PEEP of 5. Patient was given a blood gas that showed a pH of 7.37 with a pCO2 of 49 and a pO2 of 63. Sodium is at 133, potassium is at 4.6, bicarb is 26 with a BUN of 47 and a creatinine of 3.58. LFTs showed alkaline phosphatase of 203. UA showing +2 protein, many WBCs, many bacteria, 49 RBCs, and the white cell count of 5.6 with a hemoglobin 8.2 and a platelet count of 228. Initial chest x-ray was within normal limits. Subsequent chest x-ray postintubation showed pulmonary edema. On a separate note, the patient was hospitalized in early November for sepsis. At that time, the blood culture was positive for MRSA and the patient was treated with vancomycin. She required removal of previously inserted dialysis catheter and she completed a total of 4 weeks course of IV antibiotics with daptomycin. Most recent blood cultures have been negative. Review of Systems ROS unobtainable: due to endotracheal tube Past Medical History Past Medical History: Diabetes Mellitus, Hyperlipidemia, Hypertension, Renal Disease Additional Past Medical History / Comment(s): restless leg, neurothopy, Guillain-[place], dialysis Last Myocardial Infarction Date:: 2023 History of Any Multi-Drug Resistant Organisms: None Reported Date of last positivie culture/infection: 11/28/23 MDRO Source:: blood Past Surgical History: Orthopedic Surgery, Tonsillectomy Additional Past Surgical History / Comment(s): "plate in left leg to straighten leg as a child" - plate removed, right total hip replacement due to a fracture from a fall, dialysis Past Anesthesia/Blood Transfusion Reactions: No Reported Reaction Past Psychological History: No Psychological Hx Reported Smoking Status: Former smoker Past Alcohol Use History: None Reported Past Drug Use History: None Reported - Past Family History Mother History Unknown: Yes Additional Family Medical History / Comment(s): pt sedated on vent Medications and Allergies Home Medications Medication Instructions Recorded Confirmed Type Ipratropium-Albuterol Nebulize 3 ml INHALATION RT-Q6H PRN 10/09/23 01/03/24 History [Duoneb 0.5 mg-3 mg/3 ml Soln] Multivitamins, Thera [Multivitamin 1 tab PO DAILY@0800 10/09/23 01/03/24 History (formulary)] Calcium Acetate [PhosLo] 667 mg PO TID-W/MEALS tab 10/21/23 01/03/24 Rx Insulin Lispro [humaLOG Kwikpen] See Protocol SQ AC-TID@08,12,16 11/21/23 01/03/24 History Levothyroxine Sodium [Synthroid] 75 mcg PO DAILY@0611/21/23 01/03/24 History ALPRAZolam [Xanax] 0.25 mg PO MOWEFR@0500 01/03/24 01/03/24 History Aspirin 81 mg PO DAILY@79901/03/24 01/03/24 History Atorvastatin [Lipitor] 40 mg PO HS@199901/03/24 01/03/24 History Clopidogrel [Plavix] 75 mg PO DAILY@99901/03/24 01/03/24 History Docusate [Colace] 100 mg PO BID@0800,199901/03/24 01/03/24 History Folic Acid 1 mg PO DAILY@0800 01/03/24 01/03/24 History Furosemide [Lasix] 80 mg PO TID@0600,1400,199901/03/24 01/03/24 History Gabapentin [Neurontin] 100 mg PO BID@0500,1700 01/03/24 01/03/24 History HYDROcodone/APAP 7.5-325MG [[place] 1 tab PO Q6H PRN 01/03/24 01/03/24 History 7.5-325] Melatonin 5 mg PO HS@199901/03/24 01/03/24 History Midodrine [ProAmatine] 5 mg PO BID@0800,1600 PRN 01/03/24 01/03/24 History Pantoprazole [Protonix] 40 mg PO DAILY@79901/03/24 01/03/24 History Thiamine [Vitamin B-1] 100 mg PO DAILY@79901/03/24 01/03/24 History hydrALAZINE HCL [Apresoline] 25 mg PO BID@799,199901/03/24 01/03/24 History rOPINIRole HCL [Requip] 2 mg PO HS@199901/03/24 01/03/24 History Allergies Allergy/AdvReac Type Severity Reaction Status Date / Time No Known Allergies Allergy Verified 01/03/24 10:58 Physical Exam Vitals: Vital Signs Temp Pulse Resp BP Pulse Ox FiO2 01/03/24 19:35 70 01/03/24 19:32 67 01/03/24 19:29 80 01/03/24 16:53 80 01/03/24 16:52 60 01/03/24 16:36 59 L 01/03/24 16:00 66 14 118/77 100 01/03/24 15:45 68 14 112/75 100 01/03/24 15:30 70 14 119/76 100 01/03/24 15:15 73 17 119/80 100 01/03/24 15:00 76 20 111/75 100 01/03/24 14:49 100 01/03/24 14:41 100 01/03/24 14:09 100 01/03/24 14:00 100 01/03/24 11:18 75 20 161/80 98 01/03/24 09:20 66 14 131/75 01/03/24 08:47 97.4 F L 71 16 113/69 100 Intake and Output 01/03/24 01/03/24 01/03/24 06:59 14:59 22:59 Intake Total 222.219 10.240 Balance 222.219 10.240 Intake: IV 220 Intake, IV Titration 2.219 10.240 Amount propofoL 1,000 mg In 2.219 10.240 Empty Bag 1 bag @ 15 MCG/ KG/MIN 6.144 mls/hr IV . [id number] [facility] Rx#:[id number] Other: Weight 68.266 kg General: 58-year-old female sitting up in bed in the ICU intubated sedated with propofol,, comfortable, synchronous on mechanical ventilator Head exam was generally normal. There was no scleral icterus or corneal arcus. Mucous membranes were moist. HEENT: Head is atraumatic, normocephalic, pupils were equal round , sclera nonicteric, conjunctivae were pale, mucous membranes of the mouth are somewhat dry, ET tube in place. Neck: Supple, Increased JVP, normal carotid upstroke bilaterally, no lymphadenopathy. Chest: Decreased breath sounds at the bases, few rhonchi, moderate minimal expiratory wheezes, no chest wall tenderness, moderate intercostal retractions. Heart: First heart sound is normal, second heart sound is normal there is systolic ejection murmur 2/6 located in the left sternal border. Abdomen: Soft, nontender, nondistended, positive bowel sounds increased abdominal wall edema. Extremities: There is +2 edema no calf tenderness DP +1 bilaterally. Right ear scab. Neurologic examination: Patient is sedated on the ventilator. Examination of the skin revealed no evidence of significant rashes, suspicious appearing nevi or other concerning lesions. Results - Laboratory Findings CBC and BMP: 01/03/24 09:10 01/03/24 09:10 ABG ABG pH 7.37 (7.35-7.45) 01/03/24 15:47 ABG pCO2 49 mmHg (35-45) H 01/03/24 15:47 ABG pO2 63 mmHg (83-108) L 01/03/24 15:47 ABG O2 Saturation 91.9 % (94-97) L 01/03/24 15:47 Abnormal lab findings: Abnormal Labs 01/03/24 01/03/24 01/03/24 09:10 09:10 15:01 RBC 3.00 L Hgb 8.2 L Hct 27.7 L MCHC 29.4 L RDW 18.2 H ABG pCO2 ABG pO2 ABG HCO3 ABG Total CO2 ABG O2 Saturation Sodium 133 L Chloride 97 L BUN 47 H Creatinine 3.58 H Glucose 213 H POC Glucose (mg/dL) 176 H Calcium 8.1 L Alkaline Phosphatase 203 H Albumin 3.2 L Urine Appearance Urine Protein Urine Blood Ur Leukocyte Esterase Urine RBC Urine WBC Urine WBC Clumps Urine Bacteria 01/03/24 01/03/24 01/03/24 15:47 15:50 16:12 RBC Hgb Hct MCHC RDW ABG pCO2 49 H ABG pO2 63 L ABG HCO3 28 H ABG Total CO2 30 H ABG O2 Saturation 91.9 L Sodium Chloride BUN Creatinine Glucose POC Glucose (mg/dL) 176 H Calcium Alkaline Phosphatase Albumin Urine Appearance Turbid H Urine Protein 2+ H Urine Blood Moderate H Ur Leukocyte Esterase Large H Urine RBC 49 H Urine WBC >182 H Urine WBC Clumps Many H Urine Bacteria Many H - Diagnostic Findings Chest x-ray: image reviewed Assessment and Plan Plan: Acute PEA cardiac arrest, possibly related to pulmonary edema the time of the procedure/vascular procedure which involved insertion of a temporary dialysis catheter. Patient recovered circulation with a brief CPR, currently intubated on mechanical ventilator and chest x-ray is consistent with acute pulmonary edema. No reported aspiration. End-stage disease on hemodialysis, with a loss of a recently inserted dialysis catheter MRSA septicemia, treated with subsequent clearing of the blood cultures in early November 2023 Acute hypoxic respiratory failure secondary to above. This could be also a component of pulmonary edema in addition. Currently intubated on mechanical ventilator Congestion heart failure with preserved LV function Diabetes mellitus type 2 COPD Coronary artery disease with previous PCI and stenting of RCA Previous episodes of cardiac arrest back in July 2023 Hypertension Hyperlipidemia Chronic wounds in lower extremities involving the 1 in the right healed History of rectal prolapse Plan Keep the patient sedated on propofol Wean down the FiO2 slowly to maintain saturation above 90% Dialysis access has been established and the femoral vein and the patient will have dialysis by tomorrow Cover the patient with IV Zosyn and vancomycin Send blood cultures and urine cultures Check cardiac enzymes Repeat echocardiogram in a.m. IV Lasix Continue aspirin and Plavix Bronchodilators with DuoNeb No need for systemic steroids Resume home medications Will follow Condition is critical. Will collaborate care with nephrology. Time with Patient: Greater than 30
[2024-01-03] MEDS: ATORVASTATIN 40 MG TAB PO SCH (20:38)
[2024-01-03] MEDS: hydrALAZINE HCL 25 MG TAB PO SCH (20:38)
[2024-01-03] MEDS: CHLORHEXIDINE GLUCONATE 15 ML CUP MUCOUS MEM SCH (20:39)
[2024-01-03] MEDS: DOCUSATE 100 MG CAP PO SCH (20:39)
[2024-01-03] MEDS: HEPARIN SODIUM,PORCINE 5,000 UNIT/ML 1 ML VIAL SQ SCH (20:39)
[2024-01-03 23:30] LABS: Glucose,Whole Blood 165 mg/dL (70-110)
[2024-01-04 00:21] LABS: Glucose,Whole Blood 160 mg/dL (70-110)
[2024-01-04 03:37] LABS: African American GFR (CKD) 16 (>60 ml/min/1.73 sqM); Non-African American GFR(CKD) 14 (>60 ml/min/1.73 sqM)
[2024-01-04 03:43] LABS: Vancomycin,Random 15.1 ug/mL
[2024-01-04] MEDS: PIPERACILLIN-TAZOBACTAM 3.375 GM in SODIUM CHLORIDE 0.9% 100 ML IVPB SCH (05:26)
[2024-01-04 05:45] LABS: ABG Base Excess 3.2 mmol/L; ABG HCO3 27 mmol/L (21-25); ABG Oxygen Saturation 95.5 % (94-97); ABG PCO2 39 mmHg (35-45); ABG PH 7.46 (7.35-7.45); ABG PO2 68 mmHg (83-108); ABG TCO2 29 mmol/L (19-24); Allen Test Performed? Yes
[2024-01-04 05:58] LABS: Glucose,Whole Blood 139 mg/dL (70-110)
[2024-01-04] MEDS: LEVOTHYROXINE 75 MCG TAB PO SCH (06:07)
[2024-01-04 06:36] LABS: Anisocytosis Slight; Basophils % (A) 0 %; Eosinophils # (A) 0.1 k/uL (0-0.7); Eosinophils % (A) 1 %; HCT 24.9 % (34.0-46.0); HGB 7.2 gm/dL (11.4-16.0); Hypochromasia Marked; Lymphocytes # (A) 0.6 k/uL (1.0-4.8); Lymphocytes % (A) 9 %; MCH 26.8 pg (25.0-35.0); MCHC 28.8 g/dL (31.0-37.0); MCV 93.2 fL (80.0-100.0); Macrocytosis Slight; Mean Platelet Volume 9.1; Monocytes # (A) 0.3 k/uL (0-1.0); Monocytes % (A) 5 %; Neutrophils # (A) 5.3 k/uL (1.3-7.7); Neutrophils % (A) 82 %; Platelet Count 200 k/uL (150-450); Poikilocytosis Slight; RBC 2.68 m/uL (3.80-5.40); RDW 18.9 % (11.5-15.5); WBC 6.4 k/uL (3.8-10.6)
--- NOTE | 2024-01-04 07:42 | XR ---
EXAMINATION TYPE: XR chest 1V portable DATE OF EXAM: 01/04/2024 5:23 AM CLINICAL INDICATION: Female, 58 years old with history of Tube placement; [facility] COMPARISON: Chest radiographs from 01/03/2024 TECHNIQUE: XR chest 1V portable Frontal view of the chest. FINDINGS: Lungs/Pleura: There is no evidence of pleural effusion, focal consolidation, or pneumothorax. Pulmonary vascularity: Pulmonary vascular congestion. Heart/mediastinum: Cardiomediastinal silhouette is enlarged. Musculoskeletal: No acute osseous pathology. Other findings: None Lines/Tubes: Endotracheal tube with distal tip 1.2 cm above the sonam. Nasogastric tube with its distal tip and side-port projecting under the diaphragm. IMPRESSION: Endotracheal tube 1.2 cm above the sonam consider retraction 1-2 cm for optimal placement. Cardiomegaly with pulmonary vascular congestion.
[2024-01-04 08:49] LABS: African American GFR (CKD) 16 (>60 ml/min/1.73 sqM); Alkaline Phosphatase 185 U/L (38-126); Anion Gap 11 mmol/L; Blood Urea Nitrogen 52 mg/dL (7-17); Calcium 8.1 mg/dL (8.4-10.2); Carbon Dioxide 21 mmol/L (22-30); Chloride 100 mmol/L (98-107); Glucose 127 mg/dL (74-99); Magnesium 2.2 mg/dL (1.6-2.3); Non-African American GFR(CKD) 14 (>60 ml/min/1.73 sqM); Phosphorus 5.5 mg/dL (2.5-4.5); Potassium 4.2 mmol/L (3.5-5.1); Sodium 132 mmol/L (137-145)
[2024-01-04] MEDS: CLOPIDOGREL 75 MG TAB PO SCH (08:49)
[2024-01-04] MEDS: ASPIRIN 81 MG PO SCH (08:49)
[2024-01-04] MEDS: FOLIC ACID 1 MG TAB PO SCH (08:50)
[2024-01-04] MEDS: THIAMINE 100 MG TAB PO SCH (08:50)
[2024-01-04] MEDS: MULTIVITAMINS, THERA 1 EACH TAB PO SCH (08:50)
--- NOTE | 2024-01-04 09:19 | US ---
EXAMINATION TYPE: Ultrasound right neck vascular duplex for interrogation of the internal jugular vei n. DATE OF EXAM: 01/04/2024 COMPARISON: NONE CLINICAL INDICATION: Female, 58 years old with history of right jugular; Dr. Dale not able to adva nce catheter in [facility]; hx ?PICC in right jugular vein Technique: Grayscale and color Doppler imaging of the right neck for assessment of the internal jugul ar vein. Spectral waveforms were also obtained. SIDE PERFORMED: Right neck ? Echogenic line with focal dilations extending from anterior wall of jugular vein. Distal end does n ot appear to be attached, ? Focal dilations = acute clots. Does not appear to be a venous dissection, ? extension of [place] valve in AOC. Flow seen with different waveforms surrounding finding. IMPRESSION: Nonocclusive bandlike filling defects are seen within the internal jugular vein that are thought to r epresent thrombus.
--- NOTE | 2024-01-04 11:34 | P.PN ---
Subjective Progress Note Date: 01/04/[address] Ayala's consult note "58-year-old female patient, multiple medical problems including end-stage renal disease was on hemodialysis also known to have coronary artery disease with previous PCI and stenting of the RCA and known history of ischemic cardiomyopathy comes into the emergency department after losing her hemodialysis catheter. Apparently, her last hemodialysis session was on 01/02/2024. Based on that, the patient came in to ED and the patient was taken to [facility] for insertion of a new hemodialysis catheter. While in [facility], the patient was given fentanyl and during the procedure, the patient became pulseless. Details are not available. It was noted that the patient was in a PEA rhythm. The patient was given CPR, 2 rounds of epi, intubated and there was return of spont aneous circulation. Following that, the patient was kept intubated and she was transferred to the intensive care unit for further care. At this point in time, the patient is sedated on propofol and she is hemodynamically stable on no pressors. Her current vent setting includes AC of 14, tidal volume of 400, FiO2 100% and PEEP of 5. Patient was given a blood gas that showed a pH of 7.37 with a pCO2 of 49 and a pO2 of 63. Sodium is at 133, potassium is at 4.6, bicarb is 26 with a BUN of 47 and a creatinine of 3.58. LFTs showed alkaline phosphatase of 203. UA showing +2 protein, many WBCs, many bacteria, 49 RBCs, and the white cell count of 5.6 with a hemoglobin 8.2 and a platelet count of 228. Initial chest x-ray was within normal limits. Subsequent chest x-ray postintubation showed pulmonary edema. On a separate note, the patient was hospitalized in early November for sepsis. At that time, the blood culture was positive for MRSA and the patient was treated with vancomycin. She required removal of previously inserted dialysis catheter and she completed a total of 4 weeks course of IV antibiotics with daptomycin. Most recent blood cultures have been negative." Patient was examined and evaluated this morning 01/04/2024. She is intubated and remained on mechanical ventilator. Her current vent settings includes AC of 14, tidal volume of 400, FiO2 50%, and PEEP of 5. Patient is sedated on propofol and is hemodynamically stable on no pressors. Patient's blood gas showed a pH of 7.46, pCO2 of 39, and pO2 of 68. Her white blood count is 6.4, hemoglobin of 7.2, and creatinine of 3.48. She is not making much urine. Objective - Vital Signs Vital signs: Vital Signs Temp 98.5 F 01/04/24 08:30 Pulse 81 01/04/24 11:00 Resp 16 01/04/24 11:00 BP 100/55 01/04/24 11:00 Pulse Ox 97 01/04/24 11:00 FiO2 50 01/04/24 10:17 Intake & Output 01/03/24 01/04/24 01/04/24 18:59 06:59 18:59 Intake Total 679.019 355.443 45 Output Total 30 302 35 Balance 649.019 53.443 10 Weight 68.266 kg 70.4 kg Intake: IV 220 40 0.9 40 Intake, IV Titration 459.019 355.443 5 Amount Piperacillin-Tazobactam 3 100 100 .375 gm In Sodium Chloride 0.9% 100 ml @ 25 mls/hr IVPB Q12H [facility] Rx# :[id number] Sodium Chloride 0.9% 1, 30 100 5 000 ml @ 0 mls/hr IV .STK -MED ONE Rx#:[id number] Vancomycin 1,250 mg In 250 Sodium Chloride 0.9% 250 ml @ 125 mls/hr IVPB ONCE STA Rx#:[id number] propofoL 1,000 mg In 79.019 155.443 Empty Bag 1 bag @ 15 MCG/ KG/MIN 6.144 mls/hr IV . [id number] [facility] Rx#:[id number] Output: Urine 30 302 35 Other: Voiding Method Indwelling Catheter Indwelling Catheter Indwelling Catheter - Exam General: 58-year-old female sitting up in bed in the ICU intubated sedated with propofol,, comfortable, synchronous on mechanical ventilator Head: exam was generally normal. Moist oral mucosa. HEENT: Atraumatic, normocephalic, ET tube in place. Neck: Supple, Increased JVP, normal carotid upstroke bilaterally, no lymphadenopathy. Chest: Decreased breath sounds at bases, and slight expiratory wheezing. Heart: Regular heart rate, no murmurs Abdomen: Soft, nontender, nondistended, no signs of rebound tenderness Extremities: 2+ edema lower extremity bilaterally Neurologic examination: Patient is sedated on the ventilator. Skin: No rashes or lesions noted. - Labs CBC & Chem 7: 01/04/24 06:23 01/04/24 06:23 Labs: Abnormal Lab Results - Last 24 Hours (Table) 01/03/24 01/03/24 01/03/24 Range/Units 15:01 15:47 15:50 RBC (3.80-5.40) m/uL Hgb (11.4-16.0) gm/dL Hct (34.0-46.0) % MCHC (31.0-37.0) g/dL RDW (11.5-15.5) % Lymphocytes # (1.0-4.8) k/uL ABG pH (7.35-7.45) ABG pCO2 49 H (35-45) mmHg ABG pO2 63 L (83-108) mmHg ABG HCO3 28 H (21-25) mmol/L ABG Total CO2 30 H (19-24) mmol/L ABG O2 Saturation 91.9 L (94-97) % Sodium (137-145) mmol/L Carbon Dioxide (22-30) mmol/L BUN (7-17) mg/dL Creatinine (0.52-1.04) mg/dL Glucose (74-99) mg/dL POC Glucose (mg/dL) 176 H (70-110) mg/dL Calcium (8.4-10.2) mg/dL Phosphorus (2.5-4.5) mg/dL Alkaline Phosphatase (38-126) U/L Urine Appearance Turbid H (Clear) Urine Protein 2+ H (Negative) Urine Blood Moderate H (Negative) Ur Leukocyte Esterase Large H (Negative) Urine RBC 49 H (0-5) /hpf Urine WBC >182 H (0-5) /hpf Urine WBC Clumps Many H (None) /hpf Urine Bacteria Many H (None) /hpf 01/03/24 01/03/24 01/04/24 Range/Units 16:12 23:28 00:20 RBC (3.80-5.40) m/uL Hgb (11.4-16.0) gm/dL Hct (34.0-46.0) % MCHC (31.0-37.0) g/dL RDW (11.5-15.5) % Lymphocytes # (1.0-4.8) k/uL ABG pH (7.35-7.45) ABG pCO2 (35-45) mmHg ABG pO2 (83-108) mmHg ABG HCO3 (21-25) mmol/L ABG Total CO2 (19-24) mmol/L ABG O2 Saturation (94-97) % Sodium (137-145) mmol/L Carbon Dioxide (22-30) mmol/L BUN (7-17) mg/dL Creatinine (0.52-1.04) mg/dL Glucose (74-99) mg/dL POC Glucose (mg/dL) 176 H 165 H 160 H (70-110) mg/dL Calcium (8.4-10.2) mg/dL Phosphorus (2.5-4.5) mg/dL Alkaline Phosphatase (38-126) U/L Urine Appearance (Clear) Urine Protein (Negative) Urine Blood (Negative) Ur Leukocyte Esterase (Negative) Urine RBC (0-5) /hpf Urine WBC (0-5) /hpf Urine WBC Clumps (None) /hpf Urine Bacteria (None) /hpf 01/04/24 01/04/24 01/04/24 Range/Units 02:37 05:26 05:57 RBC (3.80-5.40) m/uL Hgb (11.4-16.0) gm/dL Hct (34.0-46.0) % MCHC (31.0-37.0) g/dL RDW (11.5-15.5) % Lymphocytes # (1.0-4.8) k/uL ABG pH 7.46 H (7.35-7.45) ABG pCO2 (35-45) mmHg ABG pO2 68 L (83-108) mmHg ABG HCO3 27 H (21-25) mmol/L ABG Total CO2 29 H (19-24) mmol/L ABG O2 Saturation (94-97) % Sodium (137-145) mmol/L Carbon Dioxide (22-30) mmol/L BUN (7-17) mg/dL Creatinine 3.48 H (0.52-1.04) mg/dL Glucose (74-99) mg/dL POC Glucose (mg/dL) 139 H (70-110) mg/dL Calcium (8.4-10.2) mg/dL Phosphorus (2.5-4.5) mg/dL Alkaline Phosphatase (38-126) U/L Urine Appearance (Clear) Urine Protein (Negative) Urine Blood (Negative) Ur Leukocyte Esterase (Negative) Urine RBC (0-5) /hpf Urine WBC (0-5) /hpf Urine WBC Clumps (None) /hpf Urine Bacteria (None) /hpf 01/04/24 01/04/24 Range/Units 06:23 06:23 RBC 2.68 L (3.80-5.40) m/uL Hgb 7.2 L (11.4-16.0) gm/dL Hct 24.9 L (34.0-46.0) % MCHC 28.8 L (31.0-37.0) g/dL RDW 18.9 H (11.5-15.5) % Lymphocytes # 0.6 L (1.0-4.8) k/uL ABG pH (7.35-7.45) ABG pCO2 (35-45) mmHg ABG pO2 (83-108) mmHg ABG HCO3 (21-25) mmol/L ABG Total CO2 (19-24) mmol/L ABG O2 Saturation (94-97) % Sodium 132 L (137-145) mmol/L Carbon Dioxide 21 L (22-30) mmol/L BUN 52 H (7-17) mg/dL Creatinine 3.41 H (0.52-1.04) mg/dL Glucose 127 H (74-99) mg/dL POC Glucose (mg/dL) (70-110) mg/dL Calcium 8.1 L (8.4-10.2) mg/dL Phosphorus 5.5 H (2.5-4.5) mg/dL Alkaline Phosphatase 185 H (38-126) U/L Urine Appearance (Clear) Urine Protein (Negative) Urine Blood (Negative) Ur Leukocyte Esterase (Negative) Urine RBC (0-5) /hpf Urine WBC (0-5) /hpf Urine WBC Clumps (None) /hpf Urine Bacteria (None) /hpf Assessment and Plan Assessment: Acute PEA cardiac arrest, possibly related to pulmonary edema the time of the procedure/vascular procedure which involved insertion of a temporary dialysis catheter. Patient recovered circulation with a brief CPR, currently intubated on mechanical ventilator and chest x-ray is consistent with acute pulmonary edema. No reported aspiration. End-stage disease on hemodialysis, with a loss of a recently inserted dialysis catheter MRSA septicemia, treated with subsequent clearing of the blood cultures in early November 2023 Acute hypoxic respiratory failure secondary to above. This could be also a component of pulmonary edema in addition. Currently intubated on mechanical ventilator Congestion heart failure with preserved LV function Diabetes mellitus type 2 COPD Coronary artery disease with previous PCI and stenting of RCA Previous episodes of cardiac arrest back in July 2023 Hypertension Hyperlipidemia Chronic wounds in lower extremities involving the 1 in the right healed History of rectal prolapse Plan Keep the patient sedated on propofol Wean down the FiO2 slowly to maintain saturation above 90% Dialysis access has been established, will get dialysis today. Discontinue lasix Order echocardiogram Will follow Condition is critical. Will collaborate care with nephrology. Time with Patient: Greater than 30
--- NOTE | 2024-01-04 11:50 | P.NPCON ---
History of Present Illness - Reason for Consult chronic renal failure - History of Present Illness Patient is a 58-year-old female with history of chronic kidney disease NKF stage IIIb-IV with baseline creatinine around 2 mg/dL. Patient has had multiple episodes of acute kidney injury associated with severe volume overload for which she has required hemodialysis. Patient was able to come off of dialysis a few months ago and was subsequently restarted on hemodialysis on her last admission due to persistent volume overload and worsening renal function. Patient is currently maintained on a Saturday schedule as outpatient and she was admitted to the hospital as her dialysis catheter ap parently fell out. Patient was taken to [facility] yesterday for replacement of hemodialysis catheter and developed respiratory arrest. Patient became bradycardic and CODE BLUE was called and patient was subsequently intubated and transferred to the ICU. A femoral dialysis catheter was placed instead of an IJ catheter. History of MRSA bacteremia during her last admission. Currently maintained on 50% FiO2. Patient has not had much urine output. No fever noted. Blood cultures were sent out and are currently pending. Review of Systems As per HPI Past Medical History Past Medical History: Diabetes Mellitus, Hyperlipidemia, Hypertension, Renal Disease Additional Past Medical History / Comment(s): restless leg, neurothopy, Guillain-Gaylord, dialysis Last Myocardial Infarction Date:: 2023 History of Any Multi-Drug Resistant Organisms: None Reported Date of last positivie culture/infection: 11/28/23 MDRO Source:: blood Past Surgical History: Orthopedic Surgery, Tonsillectomy Additional Past Surgical History / Comment(s): "plate in left leg to straighten leg as a child" - plate removed, right total hip replacement due to a fracture from a fall, dialysis Past Anesthesia/Blood Transfusion Reactions: No Reported Reaction Past Psychological History: No Psychological Hx Reported Smoking Status: Former smoker Past Alcohol Use History: None Reported Past Drug Use History: None Reported - Past Family History Mother History Unknown: Yes Additional Family Medical History / Comment(s): pt sedated on vent Medications and Allergies Home Medications Medication Instructions Recorded Confirmed Type Ipratropium-Albuterol Nebulize 3 ml INHALATION RT-Q6H PRN 10/09/23 01/03/24 History [Duoneb 0.5 mg-3 mg/3 ml Soln] Multivitamins, Thera [Multivitamin 1 tab PO DAILY@0800 10/09/2301/02/24 History (formulary)] Calcium Acetate [PhosLo] 667 mg PO TID-W/MEALS tab 10/21/23 01/03/24 Rx Insulin Lispro [humaLOG Kwikpen] See Protocol SQ AC-TID@08,12,16 11/21/23 01/03/24 History Levothyroxine Sodium [Synthroid] 75 mcg PO DAILY@0611/21/23 01/03/24 History ALPRAZolam [Xanax] 0.25 mg PO MOWEFR@0500 01/03/24 01/03/24 History Aspirin 81 mg PO DAILY@79901/03/24 01/03/24 History Atorvastatin [Lipitor] 40 mg PO HS@199901/03/24 01/03/24 History Clopidogrel [Plavix] 75 mg PO DAILY@99901/03/24 01/03/24 History Docusate [Colace] 100 mg PO BID@0800,199901/03/24 01/03/24 History Folic Acid 1 mg PO DAILY@79901/03/24 01/03/24 History Furosemide [Lasix] 80 mg PO TID@0600,1400,199901/03/24 01/03/24 History Gabapentin [Neurontin] 100 mg PO BID@0500,1700 01/03/24 01/03/24 History HYDROcodone/APAP 7.5-325MG [[place] 1 tab PO Q6H PRN 01/03/24 01/03/24 History 7.5-325] Melatonin 5 mg PO HS@199901/03/24 01/03/24 History Midodrine [ProAmatine] 5 mg PO BID@0800,1600 PRN 01/03/24 01/03/24 History Pantoprazole [Protonix] 40 mg PO DAILY@79901/03/24 01/03/24 History Thiamine [Vitamin B-1] 100 mg PO DAILY@79901/03/24 01/03/24 History hydrALAZINE HCL [Apresoline] 25 mg PO BID@0800,199901/03/24 01/03/24 History rOPINIRole HCL [Requip] 2 mg PO HS@199901/03/24 01/03/24 History Allergies Allergy/AdvReac Type Severity Reaction Status Date / Time No Known Allergies Allergy Verified 01/03/24 10:58 Physical Exam Vitals: Vital Signs Temp Pulse Resp BP Pulse Ox FiO2 01/04/24 11:00 81 16 100/55 97 01/04/24 10:30 81 16 98/55 97 01/04/24 10:20 76 01/04/24 10:17 50 01/04/24 10:13 75 19 01/04/24 10:00 74 18 102/56 98 01/04/24 09:30 75 12 102/57 97 01/04/24 09:14 50 01/04/24 09:00 75 15 100/57 97 01/04/24 08:30 98.5 F 75 19 102/54 98 50 01/04/24 08:00 75 19 101/55 97 50 01/04/24 07:30 76 18 98/55 97 01/04/24 07:00 75 15 102/56 97 01/04/24 06:30 76 15 103/57 97 01/04/24 06:00 77 20 103/58 97 01/04/24 05:30 78 20 105/55 96 01/04/24 05:00 79 20 103/54 96 01/04/24 04:30 79 20 92/49 96 01/04/24 04:00 97.9 F 78 17 91/48 96 50 01/04/24 03:42 77 01/04/24 03:30 75 19 96/50 97 50 01/04/24 03:26 60 01/04/24 03:23 75 01/04/24 03:00 77 17 103/53 99 01/04/24 02:30 79 17 104/54 98 01/04/24 02:00 80 14 105/55 98 01/04/24 01:30 79 14 101/54 98 01/04/24 01:00 77 15 101/54 98 01/04/24 00:38 76 01/04/24 00:30 75 15 104/55 99 01/04/24 00:25 75 01/04/24 00:24 60 01/04/24 00:21 70 01/04/24 00:00 97.7 F 75 14 102/55 99 60 01/03/24 23:30 77 14 97/53 99 01/03/24 23:01 77 14 98/51 99 01/03/24 23:00 78 14 102/53 99 01/03/24 22:30 97.7 F 79 14 104/56 95 01/03/24 22:00 80 14 106/55 99 01/03/24 21:30 82 14 115/61 99 01/03/24 21:00 97.4 F L 83 14 124/64 99 01/03/24 20:30 80 17 112/64 99 01/03/24 20:00 94.4 F L 74 14 122/70 99 70 01/03/24 19:44 70 01/03/24 19:35 70 01/03/24 19:32 67 01/03/24 19:30 65 16 120/69 100 01/03/24 19:29 80 01/03/24 19:00 66 16 119/69 100 01/03/24 18:30 68 14 119/68 100 01/03/24 18:00 70 15 118/69 100 01/03/24 17:30 71 14 115/66 100 01/03/24 17:00 66 18 124/76 100 01/03/24 16:53 80 01/03/24 16:52 60 01/03/24 16:36 59 L 01/03/24 16:30 61 14 124/79 100 01/03/24 16:00 66 14 118/77 100 80 01/03/24 15:45 68 14 112/75 100 01/03/24 15:30 70 14 119/76 100 01/03/24 15:15 73 17 119/80 100 01/03/24 15:00 76 20 111/75 100 01/03/24 14:49 100 01/03/24 14:41 100 01/03/24 14:00 100 Intake and Output 01/03/24 01/04/24 01/04/24 22:59 06:59 14:59 Intake Total 563.600 248.643 45 Output Total 265 67 35 Balance 298.600 181.643 10 Intake: IV 40 0.9 40 Intake, IV Titration 563.600 248.643 5 Amount Piperacillin-Tazobactam 3 100 100 .375 gm In Sodium Chloride 0.9% 100 ml @ 25 mls/hr IVPB Q12H [facility] Rx# :[id number] Sodium Chloride 0.9% 1, 60 70 5 000 ml @ 0 mls/hr IV .STK -MED ONE Rx#:[id number] Vancomycin 1,250 mg In 250 Sodium Chloride 0.9% 250 ml @ 125 mls/hr IVPB ONCE STA Rx#:[id number] propofoL 1,000 mg In 153.600 78.643 Empty Bag 1 bag @ 15 MCG/ KG/MIN 6.144 mls/hr IV . [id number] [facility] Rx#:[id number] Output: Urine 265 67 35 Other: Voiding Method Indwelling Catheter Indwelling Catheter Indwelling Catheter Weight 70.4 kg Patient is sedated and on the vent. Examination of the heart S1 and S2 Examination of the lungs bilateral breath sounds are heard Abdomen is soft Examination lower extremity shows edema 2+ bilaterally Results - Lab Results Most recent lab results ABG pH 7.46 (7.35-7.45) H 01/04/24 05:26 ABG pCO2 39 mmHg (35-45) 01/04/24 05:26 ABG pO2 68 mmHg (83-108) L 01/04/24 05:26 ABG HCO3 27 mmol/L (21-25) H 01/04/24 05:26 ABG O2 Saturation 95.5 % (94-97) 01/04/24 05:26 Calcium 8.1 mg/dL (8.4-10.2) L 01/04/24 06:23 Phosphorus 5.5 mg/dL (2.5-4.5) H 01/04/24 06:23 Magnesium 2.2 mg/dL (1.6-2.3) 01/04/24 06:23 01/04/24 06:23 01/04/24 06:23 Assessment and Plan Assessment: 1. Acute kidney injury oliguric ATN hemodialysis dependent. Maintained on Saturday schedule 2. Status post cardiac arrest, currently on the vent 3. Accidental removal of dialysis catheter. It is unclear as to how her dialysis catheter fell out. A temporary catheter has been placed 4. Volume overload 5. History of MRSA bacteremia during her last admission 6. Chronic kidney disease NKF stage IIIb-IV with baseline creatinine around 2 to 2.5 mg/dL with multiple episodes of hemodialysis dependent acute kidney injury and volume overload. 7. Anemia of chronic disease with hemoglobin mostly around 7.9 to 8 mg/dL during her previous admission. Plan: Hemodialysis today. Follow-up on blood cultures. Add Aranesp Check iron profile. Thank you for the consultation. We will continue to follow the patient with you during her hospitalization.
[2024-01-04 12:20] LABS: Glucose,Whole Blood 114 mg/dL (70-110)
--- NOTE | 2024-01-04 12:21 | P.PN ---
Subjective Progress Note Date: 01/04/24 58-year-old female patient, multiple medical problems including end-stage renal disease was on hemodialysis also known to have coronary artery disease with previous PCI and stenting of the RCA and known history of ischemic cardiomyopathy comes into the emergency department after losing her hemodialysis catheter. Apparently, her last hemodialysis session was on 01/02/2024. Based on that, the patient came in to ED and the patient was taken to [facility] for insertion of a new hemodialysis catheter. While in [facility], the patient was given fentanyl and during the procedure, the patient became pulseless. Details are not available. It was noted that the patient was in a PEA rhythm. The patient was given CPR, 2 rounds of epi, intubated and there was return of spontaneous circulation. Following that, the patient was kept intubated and she was transferred to the intensive care unit for further care. At this point in time, the patient is sedated on propofol and she is hemodynamically stable on no pressors. Her current vent setting includes AC of 14, tidal volume of 400, FiO2 100% and PEEP of 5. Patient was given a blood gas that showed a pH of 7.37 with a pCO2 of 49 and a pO2 of 63. Sodium is at 133, potassium is at 4.6, bicarb is 26 with a BUN of 47 and a creatinine of 3.58. LFTs showed alkaline phosphatase of 203. UA showing +2 protein, many WBCs, many bacteria, 49 RBCs, and the white cell count of 5.6 with a hemoglobin 8.2 and a platelet count of 228. Initial chest x-ray was within normal limits. Subsequent chest x-ray postintubation showed pulmonary edema. On a separate note, the patient was hospitalized in early November for sepsis. At that time, the blood culture was positive for MRSA and the patient was treated with vancomycin. She required removal of previously inserted dialysis catheter and she completed a total of 4 weeks course of IV antibiotics with daptomycin. Most recent blood cultures have been negative. On 01/04/2024, the patient remains intubated on mechanical ventilator. This morning, the patient on a propofol running at 45 mcg/kg/min. She remains intubated on the mechanical ventilator. Assist-control mode with rate of 14, tidal volume of 400, FiO2 50% with a PEEP of 5. Chest x-ray shows pulmonary edema. Blood gas shows a pH of 7.46 with a pCO2 of 39 and pO2 of 68. Cardiac rhythm is sinus. She is afebrile and hemodynamically stable. White cell count is 6.4 with a hemoglobin 7.2 and a platelet count of 200. Sodium levels at 132, BUN 52 with a creatinine of 3.4 and a potassium levels of 4.2. Remains on Zosyn and vancomycin. Blood cultures have been sent and results are still pending. Echocardiogram was also ordered. Doppler of the neck area revealed nonocclusive band of filling defect in the internal jugular vein that is thought to be representing a thrombus. This is corroborated to the previous catheter insertion. She remains on aspirin and Plavix. She remains on IV Zosyn and vancomycin for now. Urine output is minimal and Lasix will be discontinued. She is on no pressors for now. Objective - Vital Signs Vital signs: Vital Signs Temp 97.9 F 01/04/24 04:00 Pulse 75 01/04/24 07:00 Resp 15 01/04/24 07:00 BP 102/56 01/04/24 07:00 Pulse Ox 97 01/04/24 07:00 FiO2 50 01/04/24 04:00 Intake & Output 01/03/24 01/04/24 01/04/24 18:59 06:59 18:59 Intake Total 679.019 355.443 25 Output Total 30 302 25 Balance 649.019 53.443 0 Weight 68.266 kg 70.4 kg Intake: IV 220 20 0.9 20 Intake, IV Titration 459.019 355.443 5 Amount Piperacillin-Tazobactam 3 100 100 .375 gm In Sodium Chloride 0.9% 100 ml @ 25 mls/hr IVPB Q12H [facility] Rx# :[id number] Sodium Chloride 0.9% 1, 30 100 5 000 ml @ 0 mls/hr IV .STK -[facility] Rx#:[id number] Vancomycin 1,250 mg In 250 Sodium Chloride 0.9% 250 ml @ 125 mls/hr IVPB ONCE STA Rx#:[id number] propofoL 1,000 mg In 79.019 155.443 Empty Bag 1 bag @ 15 MCG/ KG/MIN 6.144 mls/hr IV . [id number] [facility] Rx#:[id number] Output: Urine 30 302 25 Other: Voiding Method Indwelling Catheter Indwelling Catheter - Exam General: 58-year-old female sitting up in bed in the ICU intubated sedated with propofol,, comfortable, synchronous on mechanical ventilator Head exam was generally normal. There was no scleral icterus or corneal arcus. Mucous membranes were moist. HEENT: Head is atraumatic, normocephalic, pupils were equal round , sclera nonicteric, conjunctivae were pale, mucous membranes of the mouth are somewhat dry, ET tube in place. Neck: Supple, Increased JVP, normal carotid upstroke bilaterally, no lymphadenopathy. Chest: Decreased breath sounds at the bases, few rhonchi, moderate minimal expiratory wheezes, no chest wall tenderness, moderate intercostal retractions. Heart: First heart sound is normal, second heart sound is normal there is systolic ejection murmur 2/6 located in the left sternal border. Abdomen: Soft, nontender, nondistended, positive bowel sounds increased abdominal wall edema. Extremities: There is +2 edema no calf tenderness DP +1 bilaterally. Right ear scab. Neurologic examination: Patient is sedated on the ventilator. Examination of the skin revealed no evidence of significant rashes, suspicious appearing nevi or other concerning lesions. - Labs CBC & Chem 7: 01/04/24 06:23 01/04/24 06:23 Labs: Abnormal Lab Results - Last 24 Hours (Table) 01/03/24 01/03/24 01/03/24 Range/Units 09:10 09:10 15:01 RBC 3.00 L (3.80-5.40) m/uL Hgb 8.2 L (11.4-16.0) gm/dL Hct 27.7 L (34.0-46.0) % MCHC 29.4 L (31.0-37.0) g/dL RDW 18.2 H (11.5-15.5) % Lymphocytes # (1.0-4.8) k/uL ABG pH (7.35-7.45) ABG pCO2 (35-45) mmHg ABG pO2 (83-108) mmHg ABG HCO3 (21-25) mmol/L ABG Total CO2 (19-24) mmol/L ABG O2 Saturation (94-97) % Sodium 133 L (137-145) mmol/L Chloride 97 L (98-107) mmol/L Carbon Dioxide (22-30) mmol/L BUN 47 H (7-17) mg/dL Creatinine 3.58 H (0.52-1.04) mg/dL Glucose 213 H (74-99) mg/dL POC Glucose (mg/dL) 176 H (70-110) mg/dL Calcium 8.1 L (8.4-10.2) mg/dL Phosphorus (2.5-4.5) mg/dL Alkaline Phosphatase 203 H (38-126) U/L Albumin 3.2 L (3.5-5.0) g/dL Urine Appearance (Clear) Urine Protein (Negative) Urine Blood (Negative) Ur Leukocyte Esterase (Negative) Urine RBC (0-5) /hpf Urine WBC (0-5) /hpf Urine WBC Clumps (None) /hpf Urine Bacteria (None) /hpf 01/03/24 01/03/24 01/03/24 Range/Units 15:47 15:50 16:12 RBC (3.80-5.40) m/uL Hgb (11.4-16.0) gm/dL Hct (34.0-46.0) % MCHC (31.0-37.0) g/dL RDW (11.5-15.5) % Lymphocytes # (1.0-4.8) k/uL ABG pH (7.35-7.45) ABG pCO2 49 H (35-45) mmHg ABG pO2 63 L (83-108) mmHg ABG HCO3 28 H (21-25) mmol/L ABG Total CO2 30 H (19-24) mmol/L ABG O2 Saturation 91.9 L (94-97) % Sodium (137-145) mmol/L Chloride (98-107) mmol/L Carbon Dioxide (22-30) mmol/L BUN (7-17) mg/dL Creatinine (0.52-1.04) mg/dL Glucose (74-99) mg/dL POC Glucose (mg/dL) 176 H (70-110) mg/dL Calcium (8.4-10.2) mg/dL Phosphorus (2.5-4.5) mg/dL Alkaline Phosphatase (38-126) U/L Albumin (3.5-5.0) g/dL Urine Appearance Turbid H (Clear) Urine Protein 2+ H (Negative) Urine Blood Moderate H (Negative) Ur Leukocyte Esterase Large H (Negative) Urine RBC 49 H (0-5) /hpf Urine WBC >182 H (0-5) /hpf Urine WBC Clumps Many H (None) /hpf Urine Bacteria Many H (None) /hpf 01/03/24 01/04/24 01/04/24 Range/Units 23:28 00:20 02:37 RBC (3.80-5.40) m/uL Hgb (11.4-16.0) gm/dL Hct (34.0-46.0) % MCHC (31.0-37.0) g/dL RDW (11.5-15.5) % Lymphocytes # (1.0-4.8) k/uL ABG pH (7.35-7.45) ABG pCO2 (35-45) mmHg ABG pO2 (83-108) mmHg ABG HCO3 (21-25) mmol/L ABG Total CO2 (19-24) mmol/L ABG O2 Saturation (94-97) % Sodium (137-145) mmol/L Chloride (98-107) mmol/L Carbon Dioxide (22-30) mmol/L BUN (7-17) mg/dL Creatinine 3.48 H (0.52-1.04) mg/dL Glucose (74-99) mg/dL POC Glucose (mg/dL) 165 H 160 H (70-110) mg/dL Calcium (8.4-10.2) mg/dL Phosphorus (2.5-4.5) mg/dL Alkaline Phosphatase (38-126) U/L Albumin (3.5-5.0) g/dL Urine Appearance (Clear) Urine Protein (Negative) Urine Blood (Negative) Ur Leukocyte Esterase (Negative) Urine RBC (0-5) /hpf Urine WBC (0-5) /hpf Urine WBC Clumps (None) /hpf Urine Bacteria (None) /hpf 01/04/24 01/04/24 01/04/24 Range/Units 05:26 05:57 06:23 RBC 2.68 L (3.80-5.40) m/uL Hgb 7.2 L (11.4-16.0) gm/dL Hct 24.9 L (34.0-46.0) % MCHC 28.8 L (31.0-37.0) g/dL RDW 18.9 H (11.5-15.5) % Lymphocytes # 0.6 L (1.0-4.8) k/uL ABG pH 7.46 H (7.35-7.45) ABG pCO2 (35-45) mmHg ABG pO2 68 L (83-108) mmHg ABG HCO3 27 H (21-25) mmol/L ABG Total CO2 29 H (19-24) mmol/L ABG O2 Saturation (94-97) % Sodium (137-145) mmol/L Chloride (98-107) mmol/L Carbon Dioxide (22-30) mmol/L BUN (7-17) mg/dL Creatinine (0.52-1.04) mg/dL Glucose (74-99) mg/dL POC Glucose (mg/dL) 139 H (70-110) mg/dL Calcium (8.4-10.2) mg/dL Phosphorus (2.5-4.5) mg/dL Alkaline Phosphatase (38-126) U/L Albumin (3.5-5.0) g/dL Urine Appearance (Clear) Urine Protein (Negative) Urine Blood (Negative) Ur Leukocyte Esterase (Negative) Urine RBC (0-5) /hpf Urine WBC (0-5) /hpf Urine WBC Clumps (None) /hpf Urine Bacteria (None) /hpf 01/04/24 Range/Units 06:23 RBC (3.80-5.40) m/uL Hgb (11.4-16.0) gm/dL Hct (34.0-46.0) % MCHC (31.0-37.0) g/dL RDW (11.5-15.5) % Lymphocytes # (1.0-4.8) k/uL ABG pH (7.35-7.45) ABG pCO2 (35-45) mmHg ABG pO2 (83-108) mmHg ABG HCO3 (21-25) mmol/L ABG Total CO2 (19-24) mmol/L ABG O2 Saturation (94-97) % Sodium 132 L (137-145) mmol/L Chloride (98-107) mmol/L Carbon Dioxide 21 L (22-30) mmol/L BUN 52 H (7-17) mg/dL Creatinine 3.41 H (0.52-1.04) mg/dL Glucose 127 H (74-99) mg/dL POC Glucose (mg/dL) (70-110) mg/dL Calcium 8.1 L (8.4-10.2) mg/dL Phosphorus 5.5 H (2.5-4.5) mg/dL Alkaline Phosphatase 185 H (38-126) U/L Albumin (3.5-5.0) g/dL Urine Appearance (Clear) Urine Protein (Negative) Urine Blood (Negative) Ur Leukocyte Esterase (Negative) Urine RBC (0-5) /hpf Urine WBC (0-5) /hpf Urine WBC Clumps (None) /hpf Urine Bacteria (None) /hpf Assessment and Plan Plan: Acute PEA cardiac arrest, possibly related to pulmonary edema the time of the procedure/vascular procedure which involved insertion of a temporary dialysis catheter. Patient recovered circulation with a brief CPR, currently intubated on mechanical ventilator and chest x-ray is consistent with acute pulmonary edema. No reported aspiration. The patient remains intubated on mechanical ventilator awaiting hemodialysis. End-stage disease on hemodialysis, with a loss of a recently inserted dialysis catheter, filling defect in the left IJ representing probably thrombus related to catheter insertion. Does not need anticoagulation at this point in time. MRSA septicemia, treated with subsequent clearing of the blood cultures in early November 2023 Acute hypoxic respiratory failure secondary to above. This could be also a component of pulmonary edema in addition. Currently intubated on mechanical ventilator Congestion heart failure with preserved LV function Diabetes mellitus type 2 COPD Coronary artery disease with previous PCI and stenting of RCA Previous episodes of cardiac arrest back in July 2023 Hypertension Hyperlipidemia Chronic wounds in lower extremities involving the 1 in the right healed History of rectal prolapse Plan Keep the patient sedated on propofol Wean down the FiO2 and FiO2 has been weaned down to 50% with a PEEP of 5. Dialysis access has been established and the femoral vein and the patient will have dialysis today May be able to wean the patient off the mechanical ventilator once dialysis completed Continue the patient with IV Zosyn and vancomycin Send blood cultures and urine cultures Check cardiac enzymes Repeat echocardiogram in a.m. IV Lasix can be discontinued Continue aspirin and Plavix, no need for anticoagulants Bronchodilators with DuoNeb No need for systemic steroids Resume home medications Will follow Condition is critical. Will collaborate care with nephrology. Critical care evaluation that was done more than 30 minutes Time with Patient: Greater than 30
--- NOTE | 2024-01-04 14:44 | P.PN ---
Subjective Progress Note Date: 01/04/24 This is a 58-year-old female with a previous medical history significant for coronary artery disease status post PCI of the RCA 2023 with ischemic cardiomyopathy, hypertension and hypertensive cardiovascular disease, hyperlipidemia, diabetes mellitus type 2 uncontrolled, fracture of the right med ial and lateral malleolus, anemia of chronic kidney disease, COPD, epistaxis, chronic kidney disease stage 4 due to cardiorenal syndrome she ended up getting started on dialysis on the last hospital admission about a month ago when she was admitted to the hospital with fluid overload and acute systolic heart failure and worsening renal failure despite aggressive diuresis, and using significant amount of diuretics, patient ended up going on dialysis she had a permanent catheter placed in the right internal jugular vein, and patient developed to have a significant MRSA bacteremia that required removal of the dialysis catheter and subsequently she was treated with IV antibiotic for a total I believe of 4 weeks of IV antibiotic in the form of daptomycin, patient blood cultures normalizes, the patient ended up having another permacatheter placed in the left internal jugular vein, and the patient was discharged to [facility] and she has been there she has been going to dialysis at [facility] and she has been doing fine apparently patient underwent dialysis yesterday, and she had pulled her dialysis catheter today she ended up coming to the ER for evaluation she was taken to the [facility] for replacement of the the left internal jugular catheter but the patient became quite agitated, and she went into pulseless electrical activity she did receive 2 epinephrine, she was intubated at the [facility], she was admitted to the ICU, she was admitted under my service, with consultation to Dr. Romo from intensive care unit, patient is currently being seen in the ICU, she is currently on the ventilator, she is sedated with Precedex, and had a chest x-ray in the ICU that showed evidence of significant pulmonary vascular congestion as well as bilateral pulmonary infiltrates, patient may have had aspirated, she will be started on Zosyn 3.375 g of piggyback every 8 hours as well as vancomycin pharmacy to dose its peak and trough, patient will have a sputum culture, blood culture, urine culture, and she will be seen in consultation by corporate sales manager, she will be seen in consultation by infectious disease Dr. Subramanian as well. 01/03. Patient seen and examined.Blood work done this morning showed WBC 6.4, hemoglobin 7.2, platelet count 200, sodium 130, potassium 4.2, BUN 52, creatinine 3.41,. Patient undergoing dialysis this morning REVIEW OF SYSTEMS: Review of system cannot be obtained as patient currently intubated and sedated PHYSICAL EXAMINATION: GENERAL: The patient is intubated HEENT: Pupils are round and equally reacting to light. EOMI. No scleral icterus. No conjunctival pallor. Normocephalic, atraumatic. No pharyngeal erythema. No thyromegaly. CARDIOVASCULAR: S1 and S2 present. No murmurs, rubs, or gallops. PULMONARY: Diminished breath sounds in the bases bilaterally, no wheezing or crackles. ABDOMEN: Soft, nontender, nondistended, normoactive bowel sounds. No palpable organomegaly. MUSCULOSKELETAL: No joint swelling or deformity. EXTREMITIES: No cyanosis, clubbing, or pedal edema. NEUROLOGICAL: Intubated SKIN: No rashes. Assessment and plan Acute hypoxemic vent dependent respiratory failure due to cardiac ar rest/pulseless electrical activity status post 2 epinephrine via ACLS protocol. Acute on chronic systolic heart failure. Acute hypoxemic respiratory failure due to cardiac arrest as well as possible aspiration pneumonia. Coronary artery disease status post PCI of the RCA. Hypertension and hypertensive cardiovascular disease. Mixed hyperlipidemia. Diabetes mellitus type 2. Anemia of chronic kidney disease. Hypothyroidism. COPD exacerbation Subacute fracture of the medial and lateral malleolus Monitor vital signs Monitor CBC Monitor CMP Continue telemetry monitoring Continue vent management per ICU Aggressive bronchopulmonary hygiene Continue breathing treatments Continue IV Zosyn and vancomycin Continue aspirin and Plavix Nephrology following ID following Critical care following Labs and medication were reviewed.. Continue same treatment. Continue with symptomatic treatment. Resume home medication. Monitor labs and vitals. DVT and GI prophylaxis. Further recommendations as per clinical course of the patient Dictation was produced using [employer] dictation software. please excuse any grammatical, word or spelling errors. Objective - Vital Signs Vital signs: Vital Signs Temp 99.0 F 01/04/24 12:00 Pulse 86 01/04/24 14:00 Resp 14 01/04/24 14:00 BP 104/50 01/04/24 14:00 Pulse Ox 98 01/04/24 14:00 FiO2 50 01/04/24 12:46 Intake & Output 01/03/24 01/04/24 01/04/24 18:59 06:59 18:59 Intake Total 679.019 355.443 165 Output Total 30 302 65 Balance 649.019 53.443 100 Weight 68.266 kg 70.4 kg Intake: IV 220 60 0.9 60 Intake, IV Titration 459.019 355.443 105 Amount Piperacillin-Tazobactam 3 100 100 .375 gm In Sodium Chloride 0.9% 100 ml @ 25 mls/hr IVPB Q12H [facility] Rx# :[id number] Sodium Chloride 0.9% 1, 30 100 5 000 ml @ 0 mls/hr IV .STK -[facility] Rx#:[id number] Vancomycin 1,250 mg In 250 Sodium Chloride 0.9% 250 ml @ 125 mls/hr IVPB ONCE STA Rx#:[id number] propofoL 1,000 mg In 79.019 155.443 100 Empty Bag 1 bag @ 15 MCG/ KG/MIN 6.144 mls/hr IV . [id number] [facility] Rx#:[id number] Output: Urine 30 302 65 Other: Voiding Method Indwelling Catheter Indwelling Catheter Indwelling Catheter - Labs CBC & Chem 7: 01/04/24 06:23 01/04/24 06:23 Labs: Abnormal Lab Results - Last 24 Hours (Table) 01/03/24 01/03/24 01/03/24 Range/Units 15:01 15:47 15:50 RBC (3.80-5.40) m/uL Hgb (11.4-16.0) gm/dL Hct (34.0-46.0) % MCHC (31.0-37.0) g/dL RDW (11.5-15.5) % Lymphocytes # (1.0-4.8) k/uL ABG pH (7.35-7.45) ABG pCO2 49 H (35-45) mmHg ABG pO2 63 L (83-108) mmHg ABG HCO3 28 H (21-25) mmol/L ABG Total CO2 30 H (19-24) mmol/L ABG O2 Saturation 91.9 L (94-97) % Sodium (137-145) mmol/L Carbon Dioxide (22-30) mmol/L BUN (7-17) mg/dL Creatinine (0.52-1.04) mg/dL Glucose (74-99) mg/dL POC Glucose (mg/dL) 176 H (70-110) mg/dL Calcium (8.4-10.2) mg/dL Phosphorus (2.5-4.5) mg/dL Alkaline Phosphatase (38-126) U/L Urine Appearance Turbid H (Clear) Urine Protein 2+ H (Negative) Urine Blood Moderate H (Negative) Ur Leukocyte Esterase Large H (Negative) Urine RBC 49 H (0-5) /hpf Urine WBC >182 H (0-5) /hpf Urine WBC Clumps Many H (None) /hpf Urine Bacteria Many H (None) /hpf 01/03/24 01/03/24 01/04/24 Range/Units 16:12 23:28 00:20 RBC (3.80-5.40) m/uL Hgb (11.4-16.0) gm/dL Hct (34.0-46.0) % MCHC (31.0-37.0) g/dL RDW (11.5-15.5) % Lymphocytes # (1.0-4.8) k/uL ABG pH (7.35-7.45) ABG pCO2 (35-45) mmHg ABG pO2 (83-108) mmHg ABG HCO3 (21-25) mmol/L ABG Total CO2 (19-24) mmol/L ABG O2 Saturation (94-97) % Sodium (137-145) mmol/L Carbon Dioxide (22-30) mmol/L BUN (7-17) mg/dL Creatinine (0.52-1.04) mg/dL Glucose (74-99) mg/dL POC Glucose (mg/dL) 176 H 165 H 160 H (70-110) mg/dL Calcium (8.4-10.2) mg/dL Phosphorus (2.5-4.5) mg/dL Alkaline Phosphatase (38-126) U/L Urine Appearance (Clear) Urine Protein (Negative) Urine Blood (Negative) Ur Leukocyte Esterase (Negative) Urine RBC (0-5) /hpf Urine WBC (0-5) /hpf Urine WBC Clumps (None) /hpf Urine Bacteria (None) /hpf 01/04/24 01/04/24 01/04/24 Range/Units 02:37 05:26 05:57 RBC (3.80-5.40) m/uL Hgb (11.4-16.0) gm/dL Hct (34.0-46.0) % MCHC (31.0-37.0) g/dL RDW (11.5-15.5) % Lymphocytes # (1.0-4.8) k/uL ABG pH 7.46 H (7.35-7.45) ABG pCO2 (35-45) mmHg ABG pO2 68 L (83-108) mmHg ABG HCO3 27 H (21-25) mmol/L ABG Total CO2 29 H (19-24) mmol/L ABG O2 Saturation (94-97) % Sodium (137-145) mmol/L Carbon Dioxide (22-30) mmol/L BUN (7-17) mg/dL Creatinine 3.48 H (0.52-1.04) mg/dL Glucose (74-99) mg/dL POC Glucose (mg/dL) 139 H (70-110) mg/dL Calcium (8.4-10.2) mg/dL Phosphorus (2.5-4.5) mg/dL Alkaline Phosphatase (38-126) U/L Urine Appearance (Clear) Urine Protein (Negative) Urine Blood (Negative) Ur Leukocyte Esterase (Negative) Urine RBC (0-5) /hpf Urine WBC (0-5) /hpf Urine WBC Clumps (None) /hpf Urine Bacteria (None) /hpf 01/04/24 01/04/24 01/04/24 Range/Units 06:23 06:23 12:18 RBC 2.68 L (3.80-5.40) m/uL Hgb 7.2 L (11.4-16.0) gm/dL Hct 24.9 L (34.0-46.0) % MCHC 28.8 L (31.0-37.0) g/dL RDW 18.9 H (11.5-15.5) % Lymphocytes # 0.6 L (1.0-4.8) k/uL ABG pH (7.35-7.45) ABG pCO2 (35-45) mmHg ABG pO2 (83-108) mmHg ABG HCO3 (21-25) mmol/L ABG Total CO2 (19-24) mmol/L ABG O2 Saturation (94-97) % Sodium 132 L (137-145) mmol/L Carbon Dioxide 21 L (22-30) mmol/L BUN 52 H (7-17) mg/dL Creatinine 3.41 H (0.52-1.04) mg/dL Glucose 127 H (74-99) mg/dL POC Glucose (mg/dL) 114 H (70-110) mg/dL Calcium 8.1 L (8.4-10.2) mg/dL Phosphorus 5.5 H (2.5-4.5) mg/dL Alkaline Phosphatase 185 H (38-126) U/L Urine Appearance (Clear) Urine Protein (Negative) Urine Blood (Negative) Ur Leukocyte Esterase (Negative) Urine RBC (0-5) /hpf Urine WBC (0-5) /hpf Urine WBC Clumps (None) /hpf Urine Bacteria (None) /hpf Microbiology - Last 24 Hours (Table) 01/03/24 20:31 Gram Stain - Preliminary Sputum
[2024-01-04 18:05] LABS: Glucose,Whole Blood 102 mg/dL (70-110)
[2024-01-05 01:46] LABS: Glucose,Whole Blood 78 mg/dL (70-110)
[2024-01-05 05:38] LABS: ABG Base Excess 4.9 mmol/L; ABG HCO3 30 mmol/L (21-25); ABG Oxygen Saturation 100.3 % (94-97); ABG PCO2 44 mmHg (35-45); ABG PH 7.44 (7.35-7.45); ABG PO2 126 mmHg (83-108); ABG TCO2 31 mmol/L (19-24); Allen Test Performed? Yes
[2024-01-05 05:59] LABS: African American GFR (CKD) 33 (>60 ml/min/1.73 sqM); Non-African American GFR(CKD) 28 (>60 ml/min/1.73 sqM)
[2024-01-05 05:59] LABS: Glucose,Whole Blood 77 mg/dL (70-110)
--- NOTE | 2024-01-05 06:40 | XR ---
EXAMINATION TYPE: XR chest 1V portable DATE OF EXAM: 01/05/2024 COMPARISON: 01/04/2024 HISTORY: Tube placement TECHNIQUE: Single frontal view of the chest is obtained. FINDINGS: ET tube is 2.3 cm above the sonam. There is an NG tube within the stomach. There is persistent mild pulmonary vascular congestion. There is a small focal opacity in the right m idlung but there is better aeration of the right lung base compared to previous. There is a stable re trocardiac opacity. The osseous structures are intact. IMPRESSION: 1. ET tube 2.3 cm above the sonam. 2. Essentially stable acute cardiopulmonary disease as described above.
[2024-01-05 07:13] LABS: Anisocytosis Slight; Basophils % (A) 1 %; Eosinophils # (A) 0.2 k/uL (0-0.7); Eosinophils % (A) 3 %; HCT 25.5 % (34.0-46.0); HGB 7.6 gm/dL (11.4-16.0); Hypochromasia Marked; Lymphocytes # (A) 0.4 k/uL (1.0-4.8); Lymphocytes % (A) 7 %; MCH 27.2 pg (25.0-35.0); MCHC 29.8 g/dL (31.0-37.0); MCV 91.1 fL (80.0-100.0); Mean Platelet Volume 8.8; Monocytes # (A) 0.4 k/uL (0-1.0); Monocytes % (A) 7 %; Neutrophils # (A) 4.5 k/uL (1.3-7.7); Neutrophils % (A) 79 %; Platelet Count 254 k/uL (150-450); RDW 18.6 % (11.5-15.5); WBC 5.6 k/uL (3.8-10.6)
[2024-01-05 07:28] LABS: African American GFR (CKD) 33 (>60 ml/min/1.73 sqM); Anion Gap 6 mmol/L; Blood Urea Nitrogen 21 mg/dL (7-17); Carbon Dioxide 27 mmol/L (22-30); Chloride 100 mmol/L (98-107); Glucose 71 mg/dL (74-99); Non-African American GFR(CKD) 29 (>60 ml/min/1.73 sqM); Potassium 3.9 mmol/L (3.5-5.1); Sodium 133 mmol/L (137-145)
[2024-01-05 10:22] LABS: Glucose,Whole Blood 76 mg/dL (70-110)
--- NOTE | 2024-01-05 11:04 | P.PN ---
Subjective Progress Note Date: 01/05/24 58-year-old female patient, multiple medical problems including end-stage renal disease was on hemodialysis also known to have coronary artery disease with previous PCI and stenting of the RCA and known history of ischemic cardiomyopathy comes into the emergency department after losing her hemodialysis catheter. Apparently, her last hemodialysis session was on 01/02/2024. Based on that, the patient came in to ED and the patient was taken to [facility] for insertion of a new hemodialysis catheter. While in [facility], the patient was given fentanyl and during the procedure, the patient became pulseless. Details are not available. It was noted that the patient was in a PEA rhythm. The patient was given CPR, 2 rounds of epi, intubated and there was return of spontaneous circulation. Following that, the patient was kept intubated and she was transferred to the intensive care unit for further care. At this point in time, the patient is sedated on propofol and she is hemodynamically stable on no pressors. Her current vent setting includes AC of 14, tidal volume of 400, FiO2 100% and PEEP of 5. Patient was given a blood gas that showed a pH of 7.37 with a pCO2 of 49 and a pO2 of 63. Sodium is at 133, potassium is at 4.6, bicarb is 26 with a BUN of 47 and a creatinine of 3.58. LFTs showed alkaline phosphatase of 203. UA showing +2 protein, many WBCs, many bacteria, 49 RBCs, and the white cell count of 5.6 with a hemoglobin 8.2 and a platelet count of 228. Initial chest x-ray was within normal limits. Subsequent chest x-ray postintubation showed pulmonary edema. On a separate note, the patient was hospitalized in early November for sepsis. At that time, the blood culture was positive for MRSA and the patient was treated with vancomycin. She required removal of previously inserted dialysis catheter and she completed a total of 4 weeks course of IV antibiotics with daptomycin. Most recent blood cultures have been negative. On 01/04/2024, the patient remains intubated on mechanical ventilator. This morning, the patient on a propofol running at 45 mcg/kg/min. She remains intubated on the mechanical ventilator. Assist-control mode with rate of 14, tidal volume of 400, FiO2 50% with a PEEP of 5. Chest x-ray shows pulmonary edema. Blood gas shows a pH of 7.46 with a pCO2 of 39 and pO2 of 68. Cardiac rhythm is sinus. She is afebrile and hemodynamically stable. White cell count is 6.4 with a hemoglobin 7.2 and a platelet count of 200. Sodium levels at 132, BUN 52 with a creatinine of 3.4 and a potassium levels of 4.2. Remains on Zosyn and vancomycin. Blood cultures have been sent and results are still pending. Echocardiogram was also ordered. Doppler of the neck area revealed nonocclusive band of filling defect in the internal jugular vein that is thought to be representing a thrombus. This is corroborated to the previous catheter insertion. She remains on aspirin and Plavix. She remains on IV Zosyn and vancomycin for now. Urine output is minimal and Lasix will be discontinued. She is on no pressors for now. 01/05/2024, the patient is being seen for a follow-up. The patient remains intubated on mechanical ventilator. The patient underwent hemodialysis yesterday a total of 3 L of fluid and ultrafiltration was done. This morning's chest x-ray still showing to some residual pulmonary edema. The patient remains sedated on propofol which is running at 40 mcg/kg/min. She is on a mechanical ventilator on assist-control mode with rate of 14, tidal volume of 400, FiO2 of 40% with a PEEP of 5. Blood gas showed a pH of 7.44 with pCO2 44 and pO2 of 126. Minimal urine output at this point in time. Hemodynamically stable. Afebrile. Remains NPO. Home medications will be resumed. In addition, the patient is covered with IV Zosyn and vancomycin pending further cultures. The urine culture is positive for gram-negative bacillus at this point in time. Objective - Vital Signs Vital signs: Vital Signs Temp 99.1 F 01/05/24 04:00 Pulse 85 01/05/24 10:00 Resp 18 01/05/24 10:00 BP 119/60 01/05/24 10:00 Pulse Ox 98 01/05/24 10:00 FiO2 40 01/05/24 08:14 Intake & Output 01/04/24 01/05/24 01/05/24 18:59 06:59 18:59 Intake Total 712.382 278.368 40 Output Total 6490 85 35 Balance -5777.618 193.368 5 Weight 70.4 kg Intake: IV 110 120 40 0.9 110 120 40 Intake, IV Titration 202.382 158.368 Amount Sodium Chloride 0.9% 1, 5 000 ml @ 0 mls/hr IV .[facility] Rx#:[id number] propofoL 1,000 mg In 197.382 158.368 Empty Bag 1 bag @ 15 MCG/ KG/MIN 6.144 mls/hr IV . [id number] [facility] Rx#:[id number] Hemodialysis 400 Output: Urine 90 85 35 Hemodialysis 3400 Hemodialysis Net Amount 3000 Other: Voiding Method Indwelling Catheter Indwelling Catheter Indwelling Catheter - Exam General: 58-year-old female sitting up in bed in the ICU intubated sedated with propofol,, comfortable, synchronous on mechanical ventilator Head exam was generally normal. There was no scleral icterus or corneal arcus. Mucous membranes were moist. HEENT: Head is atraumatic, normocephalic, pupils were equal round , sclera nonicteric, conjunctivae were pale, mucous membranes of the mouth are somewhat dry, ET tube in place. Neck: Supple, Increased JVP, normal carotid upstroke bilaterally, no lymphadenopathy. Chest: Decreased breath sounds at the bases, few rhonchi, moderate minimal expiratory wheezes, no chest wall tenderness, moderate intercostal retractions. Heart: First heart sound is normal, second heart sound is normal there is systolic ejection murmur 2/6 located in the left sternal border. Abdomen: Soft, nontender, nondistended, positive bowel sounds increased abdominal wall edema. Extremities: There is +2 edema no calf tenderness DP +1 bilaterally. Right ear scab. Neurologic examination: Patient is sedated on the ventilator. Examination of the skin revealed no evidence of significant rashes, suspicious appearing nevi or other concerning lesions. - Labs CBC & Chem 7: 01/05/24 06:46 01/05/24 06:46 Labs: Abnormal Lab Results - Last 24 Hours (Table) 01/04/24 01/05/24 01/05/24 Range/Units 12:18 05:05 05:32 RBC (3.80-5.40) m/uL Hgb (11.4-16.0) gm/dL Hct (34.0-46.0) % MCHC (31.0-37.0) g/dL RDW (11.5-15.5) % Lymphocytes # (1.0-4.8) k/uL ABG pO2 126 H (83-108) mmHg ABG HCO3 30 H (21-25) mmol/L ABG Total CO2 31 H (19-24) mmol/L ABG O2 Saturation 100.3 H (94-97) % Sodium (137-145) mmol/L BUN (7-17) mg/dL Creatinine 1.91 H (0.52-1.04) mg/dL Glucose (74-99) mg/dL POC Glucose (mg/dL) 114 H (70-110) mg/dL Calcium (8.4-10.2) mg/dL 01/05/24 01/05/24 Range/Units 06:46 06:46 RBC 2.80 L (3.80-5.40) m/uL Hgb 7.6 L (11.4-16.0) gm/dL Hct 25.5 L (34.0-46.0) % MCHC 29.8 L (31.0-37.0) g/dL RDW 18.6 H (11.5-15.5) % Lymphocytes # 0.4 L (1.0-4.8) k/uL ABG pO2 (83-108) mmHg ABG HCO3 (21-25) mmol/L ABG Total CO2 (19-24) mmol/L ABG O2 Saturation (94-97) % Sodium 133 L (137-145) mmol/L BUN 21 H (7-17) mg/dL Creatinine 1.88 H (0.52-1.04) mg/dL Glucose 71 L (74-99) mg/dL POC Glucose (mg/dL) (70-110) mg/dL Calcium 8.0 L (8.4-10.2) mg/dL Microbiology - Last 24 Hours (Table) 01/03/24 15:56 Blood Culture - Preliminary Blood 01/03/24 15:50 Urine Culture - Preliminary Urine,Voided Gram Neg Bacilli 01/03/24 20:31 Gram Stain - Preliminary Sputum Assessment and Plan Plan: Acute PEA cardiac arrest, possibly related to pulmonary edema the time of the procedure/vascular procedure which involved insertion of a temporary dialysis catheter. Patient recovered circulation with a brief CPR, currently intubated on mechanical ventilator and chest x-ray is consistent with acute pulmonary edema. No reported aspiration. The patient remains intubated on mechanical ventilator awaiting hemodialysis. End-stage disease on hemodialysis, with a loss of a recently inserted dialysis catheter, filling defect in the left IJ representing probably thrombus related to catheter insertion. Does not need anticoagulation at this point in time. MRSA septicemia, treated with subsequent clearing of the blood cultures in early November 2023 Acute hypoxic respiratory failure secondary to above. This could be also a component of pulmonary edema in addition. Currently intubated on mechanical ventilator Congestion heart failure with preserved LV function Diabetes mellitus type 2 COPD Coronary artery disease with previous PCI and stenting of RCA Previous episodes of cardiac arrest back in July 2023 Hypertension Hyperlipidemia Chronic wounds in lower extremities involving the 1 in the right healed History of rectal prolapse Plan Keep the patient sedated on propofol The patient underwent hemodialysis with a 3 L of ultrafiltration yesterday. Chest x-ray still showing residual pulmonary edema. Recommend another session of hemodialysis with ultrafiltration today to further optimize the volume status. Dialysis access has been established and the femoral vein May be able to wean the patient off the mechanical ventilator once dialysis completed, suggested second dialysis with ultrafiltration prior to extubation. Continue the patient with IV Zosyn and vancomycin Send blood cultures and urine cultures, urine cultures showing gram-negative bacillus Check cardiac enzymes Repeat echocardiogram in a.m. Continue aspirin and Plavix, no need for anticoagulants Bronchodilators with DuoNeb No need for systemic steroids Resume home medications No need for anticoagulants Will follow Condition is critical. Will collaborate care with nephrology. Critical care evaluation that was done more than 30 minutes Time with Patient: Greater than 30
--- NOTE | 2024-01-05 11:42 | P.PN ---
Subjective Patient is seen for follow-up for hemodialysis dependent acute kidney injury currently oliguric. Patient was dialyzed yesterday. UF of 3 L. Patient remains on the vent. FiO2 is 40%. Chest x-ray continues to show pulmonary vascular congestion and deputy clerk of superior court has requested for another treatment today. Urine output remains minimal. Urine culture is growing gram-negative bacilli. Blood cultures are negative thus far. Objective - Vital Signs Vital signs: Vital Signs Temp 99.1 F 01/05/24 04:00 Pulse 85 01/05/24 10:00 Resp 18 01/05/24 10:00 BP 119/60 01/05/24 10:00 Pulse Ox 98 01/05/24 10:00 FiO2 40 01/05/24 08:14 Intake & Output 01/04/24 01/05/24 01/05/24 18:59 06:59 18:59 Intake Total 712.382 278.368 40 Output Total 6490 85 35 Balance -5777.618 193.368 5 Weight 70.4 kg Intake: IV 110 120 40 0.9 110 120 40 Intake, IV Titration 202.382 158.368 Amount Sodium Chloride 0.9% 1, 5 000 ml @ 0 mls/hr IV .[facility] Rx#:[id number] propofoL 1,000 mg In 197.382 158.368 Empty Bag 1 bag @ 15 MCG/ KG/MIN 6.144 mls/hr IV . [id number] [facility] Rx#:[id number] Hemodialysis 400 Output: Urine 90 85 35 Hemodialysis 3400 Hemodialysis Net Amount 3000 Other: Voiding Method Indwelling Catheter Indwelling Catheter Indwelling Catheter - Exam Patient is sedated and on the vent. Examination of the heart S1 and S2 Examination of the lungs bilateral breath sounds are heard Abdomen is soft Examination lower extremity shows edema 2+ bilaterally, improving - Labs CBC & Chem 7: 01/05/24 06:46 01/05/24 06:46 Labs: Abnormal Lab Results - Last 24 Hours (Table) 01/04/24 01/05/24 01/05/24 Range/Units 12:18 05:05 05:32 RBC (3.80-5.40) m/uL Hgb (11.4-16.0) gm/dL Hct (34.0-46.0) % MCHC (31.0-37.0) g/dL RDW (11.5-15.5) % Lymphocytes # (1.0-4.8) k/uL ABG pO2 126 H (83-108) mmHg ABG HCO3 30 H (21-25) mmol/L ABG Total CO2 31 H (19-24) mmol/L ABG O2 Saturation 100.3 H (94-97) % Sodium (137-145) mmol/L BUN (7-17) mg/dL Creatinine 1.91 H (0.52-1.04) mg/dL Glucose (74-99) mg/dL POC Glucose (mg/dL) 114 H (70-110) mg/dL Calcium (8.4-10.2) mg/dL 01/05/24 01/05/24 Range/Units 06:46 06:46 RBC 2.80 L (3.80-5.40) m/uL Hgb 7.6 L (11.4-16.0) gm/dL Hct 25.5 L (34.0-46.0) % MCHC 29.8 L (31.0-37.0) g/dL RDW 18.6 H (11.5-15.5) % Lymphocytes # 0.4 L (1.0-4.8) k/uL ABG pO2 (83-108) mmHg ABG HCO3 (21-25) mmol/L ABG Total CO2 (19-24) mmol/L ABG O2 Saturation (94-97) % Sodium 133 L (137-145) mmol/L BUN 21 H (7-17) mg/dL Creatinine 1.88 H (0.52-1.04) mg/dL Glucose 71 L (74-99) mg/dL POC Glucose (mg/dL) (70-110) mg/dL Calcium 8.0 L (8.4-10.2) mg/dL Microbiology - Last 24 Hours (Table) 01/03/24 15:56 Blood Culture - Preliminary Blood 01/03/24 15:50 Urine Culture - Preliminary Urine,Voided Gram Neg Bacilli 01/03/24 20:31 Gram Stain - Preliminary Sputum Assessment and Plan Assessment: 1. Acute kidney injury oliguric ATN hemodialysis dependent. Maintained on Saturday schedule 2. Status post cardiac arrest, currently on the vent 3. Accidental removal of dialysis catheter. It is unclear as to how her dialysis catheter fell out. A temporary catheter has been placed in the femoral vein. 4. Volume overload 5. History of MRSA bacteremia during her last admission 6. Chronic kidney disease NKF stage IIIb-IV with baseline creatinine around 2 to 2.5 mg/dL with multiple episodes of hemodialysis dependent acute kidney injury and volume overload. 7. Anemia of chronic disease with hemoglobin mostly around 7.9 to 8 mg/dL during her previous admission. 8. Acute hypoxic respiratory failure secondary to CHF, currently on the vent with plans for extubation Plan: Repeat hemodialysis today, mostly UF for volume overload Follow-up on blood cultures. Continue aranesp Hemodialysis in a.m.
--- NOTE | 2024-01-05 12:55 | P.PN ---
Subjective Progress Note Date: 01/05/24 This is a 58-year-old female with a previous medical history significant for coronary artery disease status post PCI of the RCA 2023 with ischemic cardiomyopathy, hypertension and hypertensive cardiovascular disease, hyperlipidemia, diabetes mellitus type 2 uncontrolled, fracture of the right med ial and lateral malleolus, anemia of chronic kidney disease, COPD, epistaxis, chronic kidney disease stage 4 due to cardiorenal syndrome she ended up getting started on dialysis on the last hospital admission about a month ago when she was admitted to the hospital with fluid overload and acute systolic heart failure and worsening renal failure despite aggressive diuresis, and using significant amount of diuretics, patient ended up going on dialysis she had a permanent catheter placed in the right internal jugular vein, and patient developed to have a significant MRSA bacteremia that required removal of the dialysis catheter and subsequently she was treated with IV antibiotic for a total I believe of 4 weeks of IV antibiotic in the form of daptomycin, patient blood cultures normalizes, the patient ended up having another permacatheter placed in the left internal jugular vein, and the patient was discharged to [facility] and she has been there she has been going to dialysis at [facility] and she has been doing fine apparently patient underwent dialysis yesterday, and she had pulled her dialysis catheter today she ended up coming to the ER for evaluation she was taken to the [facility] for replacement of the the left internal jugular catheter but the patient became quite agitated, and she went into pulseless electrical activity she did receive 2 epinephrine, she was intubated at the [facility], she was admitted to the ICU, she was admitted under my service, with consultation to Dr. Romo from intensive care unit, patient is currently being seen in the ICU, she is currently on the ventilator, she is sedated with Precedex, and had a chest x-ray in the ICU that showed evidence of significant pulmonary vascular congestion as well as bilateral pulmonary infiltrates, patient may have had aspirated, she will be started on Zosyn 3.375 g of piggyback every 8 hours as well as vancomycin pharmacy to dose its peak and trough, patient will have a sputum culture, blood culture, urine culture, and she will be seen in consultation by speaking unit assembler, she will be seen in consultation by infectious disease Dr. Subramanian as well. 01/03. Patient seen and examined.Blood work done this morning showed WBC 6.4, hemoglobin 7.2, platelet count 200, sodium 130, potassium 4.2, BUN 52, creatinine 3.41,. Patient undergoing dialysis this morning 01/04. Patient seen and examined continues to intubated. Vital signs on this morning showedTemperature 98.1, heart rate 81, respirations 16, blood pressure 111/54. Blood work this morning showed WBC 5.6, hemoglobin 7.6, platelet count 254, sodium 133, potassium 3.9, BUN 21, creatinine 1.88 Patient getting another session of dialysis today REVIEW OF SYSTEMS: Review of system cannot be obtained as patient currently intubated and sedated PHYSICAL EXAMINATION: GENERAL: The patient is intubated HEENT: Pupils are round and equally reacting to light. EOMI. No scleral icterus. No conjunctival pallor. Normocephalic, atraumatic. No pharyngeal erythema. No thyromegaly. CARDIOVASCULAR: S1 and S2 present. No murmurs, rubs, or gallops. PULMONARY: Diminished breath sounds in the bases bilaterally, no wheezing or crackles. ABDOMEN: Soft, nontender, nondistended, normoactive bowel sounds. No palpable organomegaly. MUSCULOSKELETAL: No joint swelling or deformity. EXTREMITIES: No cyanosis, clubbing, or pedal edema. NEUROLOGICAL: Intubated SKIN: No rashes. Assessment and plan Acute hypoxemic vent dependent respiratory failure due to cardiac arrest/pulseless electrical activity status post 2 epinephrine via ACLS protocol. Acute on chronic systolic heart failure. Acute hypoxemic respiratory failure due to cardiac arrest as well as possible aspiration pneumonia. Coronary artery disease status post PCI of the RCA. Hypertension and hypertensive cardiovascular disease. Mixed hyperlipidemia. Diabetes mellitus type 2. Anemia of chronic kidney disease. Hypothyroidism. COPD exacerbation Subacute fracture of the medial and lateral malleolus Monitor vital signs Monitor CBC Monitor CMP Continue telemetry monitoring Continue vent management per ICU Aggressive bronchopulmonary hygiene Continue breathing treatments Continue IV Zosyn and vancomycin Continue aspirin and Plavix, Lipitor Nephrology following ID following Critical care following Labs and medication were reviewed.. Continue same treatment. Continue with symptomatic treatment. Resume home medication. Monitor labs and vitals. DVT and GI prophylaxis. Further recommendations as per clinical course of the patient Dictation was produced using [employer] dictation software. please excuse any grammatical, word or spelling errors. Objective - Vital Signs Vital signs: Vital Signs Temp 99.1 F 01/05/24 04:00 Pulse 80 01/05/24 08:22 Resp 14 01/05/24 07:00 BP 129/69 01/05/24 07:00 Pulse Ox 99 01/05/24 07:00 FiO2 40 01/05/24 08:14 Intake & Output 01/04/24 01/05/24 01/05/24 18:59 06:59 18:59 Intake Total 712.382 278.368 20 Output Total 6490 85 25 Balance -5777.618 193.368 -5 Weight 70.4 kg Intake: IV 110 120 20 0.9 110 120 20 Intake, IV Titration 202.382 158.368 Amount Sodium Chloride 0.9% 1, 5 000 ml @ 0 mls/hr IV [facility] Rx#:[id number] propofoL 1,000 mg In 197.382 158.368 Empty Bag 1 bag @ 15 MCG/ KG/MIN 6.144 mls/hr IV . [id number] [facility] Rx#:[id number] Hemodialysis 400 Output: Urine 90 85 25 Hemodialysis 3400 Hemodialysis Net Amount 3000 Other: Voiding Method Indwelling Catheter Indwelling Catheter - Labs CBC & Chem 7: 01/05/24 06:46 01/05/24 06:46 Labs: Abnormal Lab Results - Last 24 Hours (Table) 01/04/24 01/04/24 01/05/24 Range/Units 06:23 12:18 05:05 RBC (3.80-5.40) m/uL Hgb (11.4-16.0) gm/dL Hct (34.0-46.0) % MCHC (31.0-37.0) g/dL RDW (11.5-15.5) % Lymphocytes # (1.0-4.8) k/uL ABG pO2 (83-108) mmHg ABG HCO3 (21-25) mmol/L ABG Total CO2 (19-24) mmol/L ABG O2 Saturation (94-97) % Sodium 132 L (137-145) mmol/L Carbon Dioxide 21 L (22-30) mmol/L BUN 52 H (7-17) mg/dL Creatinine 3.41 H 1.91 H (0.52-1.04) mg/dL Glucose 127 H (74-99) mg/dL POC Glucose (mg/dL) 114 H (70-110) mg/dL Calcium 8.1 L (8.4-10.2) mg/dL Phosphorus 5.5 H (2.5-4.5) mg/dL Alkaline Phosphatase 185 H (38-126) U/L 01/05/24 01/05/24 01/05/24 Range/Units 05:32 06:46 06:46 RBC 2.80 L (3.80-5.40) m/uL Hgb 7.6 L (11.4-16.0) gm/dL Hct 25.5 L (34.0-46.0) % MCHC 29.8 L (31.0-37.0) g/dL RDW 18.6 H (11.5-15.5) % Lymphocytes # 0.4 L (1.0-4.8) k/uL ABG pO2 126 H (83-108) mmHg ABG HCO3 30 H (21-25) mmol/L ABG Total CO2 31 H (19-24) mmol/L ABG O2 Saturation 100.3 H (94-97) % Sodium 133 L (137-145) mmol/L Carbon Dioxide (22-30) mmol/L BUN 21 H (7-17) mg/dL Creatinine 1.88 H (0.52-1.04) mg/dL Glucose 71 L (74-99) mg/dL POC Glucose (mg/dL) (70-110) mg/dL Calcium 8.0 L (8.4-10.2) mg/dL Phosphorus (2.5-4.5) mg/dL Alkaline Phosphatase (38-126) U/L Microbiology - Last 24 Hours (Table) 01/03/24 15:56 Blood Culture - Preliminary Blood 01/03/24 15:50 Urine Culture - Preliminary Urine,Voided Gram Neg Bacilli 01/03/24 20:31 Gram Stain - Preliminary Sputum
[2024-01-05 13:05] LABS: Hepatitis B Surface Antigen Nonreactive (Nonreactive)
[2024-01-05] MEDS: PIPERACILLIN-TAZOBACTAM 3.375 GM in SODIUM CHLORIDE 0.9% 100 ML IVPB SCH (14:22)
[2024-01-05 16:50] LABS: Glucose,Whole Blood 74 mg/dL (70-110)
[2024-01-05 16:51] LABS: ABG Base Excess 2.7 mmol/L; ABG HCO3 28 mmol/L (21-25); ABG Oxygen Saturation 100.4 % (94-97); ABG PCO2 44 mmHg (35-45); ABG PH 7.41 (7.35-7.45); ABG PO2 133 mmHg (83-108); ABG TCO2 29 mmol/L (19-24); Allen Test Performed? Yes
[2024-01-05] MEDS: VANCOMYCIN 1,250 MG in SODIUM CHLORIDE 0.9% 250 ML IVPB ONE (16:51)
[2024-01-05 21:29] LABS: Hepatitis B Surface AB- Quant 3.5 mIU/mL
[2024-01-06 01:40] LABS: Glucose,Whole Blood 69 mg/dL (70-110)
[2024-01-06 02:35] LABS: Glucose,Whole Blood 75 mg/dL (70-110)
[2024-01-06 05:08] LABS: Glucose,Whole Blood 84 mg/dL (70-110)
[2024-01-06 06:43] LABS: Anisocytosis Slight; Basophils % (A) 1 %; Eosinophils # (A) 0.3 k/uL (0-0.7); Eosinophils % (A) 7 %; HCT 25.4 % (34.0-46.0); HGB 7.4 gm/dL (11.4-16.0); Hypochromasia Marked; Lymphocytes # (A) 0.3 k/uL (1.0-4.8); Lymphocytes % (A) 6 %; MCH 26.4 pg (25.0-35.0); MCV 90.8 fL (80.0-100.0); Monocytes # (A) 0.3 k/uL (0-1.0); Monocytes % (A) 6 %; Neutrophils # (A) 3.7 k/uL (1.3-7.7); Neutrophils % (A) 79 %; Platelet Count 234 k/uL (150-450); Poikilocytosis Slight; RBC 2.79 m/uL (3.80-5.40); RDW 18.2 % (11.5-15.5); WBC 4.6 k/uL (3.8-10.6)
[2024-01-06 06:53] LABS: African American GFR (CKD) 28 (>60 ml/min/1.73 sqM); Anion Gap 7 mmol/L; Blood Urea Nitrogen 27 mg/dL (7-17); Calcium 8.4 mg/dL (8.4-10.2); Carbon Dioxide 27 mmol/L (22-30); Chloride 101 mmol/L (98-107); Glucose 69 mg/dL (74-99); Non-African American GFR(CKD) 25 (>60 ml/min/1.73 sqM); Sodium 135 mmol/L (137-145)
--- NOTE | 2024-01-06 08:17 | P.PN ---
Subjective Patient is seen in follow-up for acute kidney injury, hemodialysis dependent. Resting in bed. On nasal cannula. Scheduled for dialysis today. He modynamically stable. Vital signs are stable. General: No acute distress. HEENT: On nasal cannula. LUNGS: No audible rhonchi or wheezes. HEART: Rate and Rhythm are regular. ABDOMEN: No distention. EXTREMITITES: 1+ edema. Objective - Vital Signs Vital signs: Vital Signs Temp 97.5 F L 01/06/24 04:00 Pulse 73 01/06/24 07:00 Resp 13 01/06/24 07:00 BP 120/99 01/06/24 07:00 Pulse Ox 97 01/06/24 07:00 FiO2 40 01/05/24 17:00 Intake & Output 01/05/24 01/06/24 01/06/24 18:59 06:59 18:59 Intake Total 1037.782 165 5 Output Total 6510 220 10 Balance -5472.218 -55 -5 Weight 63.2 kg Intake: IV 80 65 5 0.9 80 65 5 Intake, IV Titration 557.782 100 Amount Piperacillin-Tazobactam 3 100 .375 gm In Sodium Chloride 0.9% 100 ml @ 25 mls/hr IVPB Q12H [facility] Rx# :[id number] Piperacillin-Tazobactam 3 100 100 .375 gm In Sodium Chloride 0.9% 100 ml @ 25 mls/hr IVPB Q8H [facility] Rx#: [id number] Vancomycin 1,250 mg In 250 Sodium Chloride 0.9% 250 ml @ 125 mls/hr IVPB ONCE ONE Rx#:[id number] propofoL 1,000 mg In 107.782 Empty Bag 1 bag @ 15 MCG/ KG/MIN 6.144 mls/hr IV . [id number] [facility] Rx#:[id number] Hemodialysis 400 Output: Urine 110 220 10 Hemodialysis 3400 Hemodialysis Net Amount 3000 Other: Voiding Method Indwelling Catheter Indwelling Catheter # Bowel Movements 0 1 - Labs CBC & Chem 7: 01/06/24 06:11 01/06/24 06:11 Labs: Abnormal Lab Results - Last 24 Hours (Table) 01/05/24 01/06/24 01/06/24 Range/Units 16:42 01:39 06:11 RBC 2.79 L (3.80-5.40) m/uL Hgb 7.4 L (11.4-16.0) gm/dL Hct 25.4 L (34.0-46.0) % MCHC 29.0 L (31.0-37.0) g/dL RDW 18.2 H (11.5-15.5) % Lymphocytes # 0.3 L (1.0-4.8) k/uL ABG pO2 133 H (83-108) mmHg ABG HCO3 28 H (21-25) mmol/L ABG Total CO2 29 H (19-24) mmol/L ABG O2 Saturation 100.4 H (94-97) % Sodium (137-145) mmol/L BUN (7-17) mg/dL Creatinine (0.52-1.04) mg/dL Glucose (74-99) mg/dL POC Glucose (mg/dL) 69 L (70-110) mg/dL 01/06/24 Range/Units 06:11 RBC (3.80-5.40) m/uL Hgb (11.4-16.0) gm/dL Hct (34.0-46.0) % MCHC (31.0-37.0) g/dL RDW (11.5-15.5) % Lymphocytes # (1.0-4.8) k/uL ABG pO2 (83-108) mmHg ABG HCO3 (21-25) mmol/L ABG Total CO2 (19-24) mmol/L ABG O2 Saturation (94-97) % Sodium 135 L (137-145) mmol/L BUN 27 H (7-17) mg/dL Creatinine 2.14 H (0.52-1.04) mg/dL Glucose 69 L (74-99) mg/dL POC Glucose (mg/dL) (70-110) mg/dL Microbiology - Last 24 Hours (Table) 01/03/24 15:56 Blood Culture - Preliminary Blood 01/03/24 15:50 Urine Culture - Final Urine,Voided Enterobacter cloacae 01/03/24 20:31 Gram Stain - Preliminary Sputum Sputum Culture - Preliminary Lacy albicans Assessment and Plan Plan: Assessment: 1. Acute kidney injury secondary to ATN secondary to cardiorenal syndrome, sepsis, hemodialysis dependent. Currently has a femoral catheter that was placed January 03, 2024. 2. Status post cardiac arrest. 3. Volume overload. Improved with ultrafiltration. 4. Chronic kidney disease stage IV with baseline creatinine 2-2.5 secondary to cardiorenal syndrome, sepsis. Baseline creatinine 2-2.5. 5. Anemia of chronic kidney disease. 6. Chronic kidney disease mineral bone disease maintained on PhosLo. Phosphorus level 5.5 dated January 04, 2024. 7. Diabetes mellitus. 8. Recent MRSA infection. On antibiotics. Plan: Hemodialysis today. Add torsemide 40 mg once daily. Add Aranesp. Monitor for renal recovery outpatient.
[2024-01-06] MEDS: TORSEMIDE 20 MG TAB PO SCH (09:04)
--- NOTE | 2024-01-06 09:19 | XR ---
EXAMINATION TYPE: XR chest 1V portable DATE OF EXAM: 01/06/2024 Comparison: 01/05/2024 Clinical History: 58-year-old female Tube placement Findings: Heart mildly enlarged. Diffuse interstitial densities. Interval extubation and removal of NG tube. Sm all left pleural effusion persists. Impression: Similar mild interstitial pulmonary edema. Small left pleural effusion with adjacent atelectasis and/ or consolidation.
[2024-01-06] MEDS: DARBEPOETIN ALFA 40 MCG/0.4 ML SYRINGE SQ SCH (11:04)
[2024-01-06 11:10] LABS: Glucose,Whole Blood 89 mg/dL (70-110)
[2024-01-06] MEDS: INSULIN ASPART (NovoLOG) 100 UNIT/ML VIAL SQ SCH (11:17)
--- NOTE | 2024-01-06 11:37 | CA ---
Transthoracic Echo Report Name: Chelle Lin Age: 58 Gender: F : 1965 Exam Date: 01/04/2024 12:46 Exam Location: [facility] Ht (in): 63 Wt (lb): 155 Ordering Physician: Breana Ayala MD Attending/Referring Phys: [employer] Conditioning Insulation Installer Asuncion Rocha RDCS Procedure CPT: Indications: Assess LV Function Cardiac Hx: Technical Quality: Good Contrast 1: Total Dose (mL): Contrast 2: Total Dose (mL): MEASUREMENTS (Male / Female) Normal Values 2D ECHO LV Diastolic Diameter PLAX 4.5 cm 4.2 - 5.9 / 3.9 - 5.3 cm LV Systolic Diameter PLAX 3.3 cm IVS Diastolic Thickness 1.0 cm 0.6 - 1.0 / 0.6 - 0.9 cm LVPW Diastolic Thickness 1.2 cm 0.6 - 1.0 / 0.6 - 0.9 cm LV Relative Wall Thickness 0.5 LV Diastolic Volume MOD BP 124.0 cm??? 67 - 155 / 56 - 104 cm??? LV Systolic Volume MOD BP 49.2 cm??? 22 - 58 / 19 - 49 cm??? LV Ejection Fraction MOD BP 60.3 % >= 55 % LV Cardiac Index MOD BP 3686.6 cm???/min???m??? LV Diastolic Volume MOD 4C 108.3 cm??? LV Systolic Volume MOD 4C 44.9 cm??? LV Ejection Fraction MOD 4C 58.5 % LV Cardiac Index MOD 4C 3119.8 cm???/min???m??? LV Diastolic Length 4C 8.0 cm LV Systolic Length 4C 7.0 cm LV Diastolic Volume MOD 2C 134.1 cm??? LV Systolic Volume MOD 2C 55.4 cm??? LV Ejection Fraction MOD 2C 58.7 % LV Cardiac Index MOD 2C 3875.0 cm???/min???m??? LV Diastolic Length 2C 8.6 cm LV Systolic Length 2C 7.1 cm M-MODE LV Diastolic Diameter MM 4.4 cm 4.2 - 5.9 / 3.9 - 5.3 cm LV Systolic Diameter MM 3.4 cm LV Cardiac Index MM Teich 1987.6 cm???/min???m??? IVS Diastolic Thickness MM 1.1 cm 0.6 - 1.0 / 0.6 - 0.9 cm LVPW Diastolic Thickness MM 0.9 cm 0.6 - 1.0 / 0.6 - 0.9 cm LV Relative Wall Thickness MM 0.5 0.24 - 0.42 / 0.22 - 0.42 LV Mass Index MM 87.8 g/m??? 49 - 115 / 43 - 95 g/m??? DOPPLER TR Peak Velocity 288.7 cm/s TR Peak Gradient 33.3 mmHg PV Peak Velocity 81.0 cm/s PV Peak Gradient 2.6 mmHg FINDINGS Left Ventricle Left ventricular ejection fraction is estimated at 55-60 %. Mildly increased septal wall thickness. Mildly increased posterior wall thickness. Mildly decreased fractional shortening. Moderately increased left ventricular diastolic volume. Mildly increased left ventricular relative wall thickness. No obvious regional wall motion abnormalities. Right Ventricle Right ventricular dilatation. Right Atrium Right atrial dilatation. Left Atrium Left atrial dilatation. Mitral Valve Mitral valve thickened. No mitral stenosis. Trace mitral regurgitation. Aortic Valve Trileaflet aortic valve. No aortic valve stenosis or regurgitation. Tricuspid Valve Structurally normal tricuspid valve. No tricuspid stenosis. Trace tricuspid regurgitation. Pulmonic Valve Structurally normal pulmonic valve. No pulmonic stenosis. No pulmonic regurgitation. Pericardium No pericardial effusion. Left pleural effusion. Aorta CONCLUSIONS Left ventricular hypertrophy with preserved LV function Large pleural effusion Previewed by: Dr. Richard Zayas MD (Electronically Signed) Final Date: 06 January 2024 11:36
--- NOTE | 2024-01-06 13:05 | P.PN ---
Subjective Progress Note Date: 01/06/24 Principal diagnosis: Cardiac arrest 58-year-old female patient, multiple medical problems including end-stage renal disease was on hemodialysis also known to have coronary artery disease with previous PCI and stenting of the RCA and known history of ischemic cardiomyopathy comes into the emergency department after losing her hemodialysis catheter. Apparently, her last hemodialysis session was on 01/02/2024. Based on that, the patient came in to ED and the patient was taken to [facility] for insertion of a new hemodialysis catheter. While in [facility], the patient was given fentanyl and during the procedure, the patient became pulseless. Details are not available. It was noted that the patient was in a PEA rhythm. The patient was given CPR, 2 rounds of epi, intubated and there was return of spontaneous circulation. Following that, the patient was kept intubated and she was transferred to the intensive care unit for further care. At this point in time, the patient is sedated on propofol and she is hemodynamically stable on no pressors. Her current vent setting includes AC of 14, tidal volume of 400, FiO2 100% and PEEP of 5. Patient was given a blood gas that showed a pH of 7.37 with a pCO2 of 49 and a pO2 of 63. Sodium is at 133, potassium is at 4.6, bicarb is 26 with a BUN of 47 and a creatinine of 3.58. LFTs showed alkaline phosphatase of 203. UA showing +2 protein, many WBCs, many bacteria, 49 RBCs, and the white cell count of 5.6 with a hemoglobin 8.2 and a platelet count of 228. Initial chest x-ray was within normal limits. Subsequent chest x-ray postintubation showed pulmonary edema. On a separate note, the patient was hospitalized in early November for sepsis. At that time, the blood culture was positive for MRSA and the patient was treated with vancomycin. She required removal of previously inserted dialysis catheter and she completed a total of 4 weeks course of IV antibiotics with daptomycin. Most recent blood cultures have been negative. On 01/04/2024, the patient remains intubated on mechanical ventilator. This morning, the patient on a propofol running at 45 mcg/kg/min. She remains intubated on the mechanical ventilator. Assist-control mode with rate of 14, tidal volume of 400, FiO2 50% with a PEEP of 5. Chest x-ray shows pulmonary edema. Blood gas shows a pH of 7.46 with a pCO2 of 39 and pO2 of 68. Cardiac rhythm is sinus. She is afebrile and hemodynamically stable. White cell count is 6.4 with a hemoglobin 7.2 and a platelet count of 200. Sodium levels at 132, BUN 52 with a creatinine of 3.4 and a potassium levels of 4.2. Remains on Zosyn and vancomycin. Blood cultures have been sent and results are still pending. Echocardiogram was also ordered. Doppler of the neck area revealed nonocclusive band of filling defect in the internal jugular vein that is thought to be representing a thrombus. This is corroborated to the previous catheter insertion. She remains on aspirin and Plavix. She remains on IV Zosyn and vancomycin for now. Urine output is minimal and Lasix will be discontinued. She is on no pressors for now. 01/05/2024, the patient is being seen for a follow-up. The patient remains intubated on mechanical ventilator. The patient underwent hemodialysis yesterday a total of 3 L of fluid and ultrafiltration was done. This morning's chest x-ray still showing to some residual pulmonary edema. The patient remains sedated on propofol which is running at 40 mcg/kg/min. She is on a mechanical ventilator on assist-control mode with rate of 14, tidal volume of 400, FiO2 of 40% with a PEEP of 5. Blood gas showed a pH of 7.44 with pCO2 44 and pO2 of 126. Minimal urine output at this point in time. Hemodynamically stable. Afebrile. Remains NPO. Home medications will be resumed. In addition, the patient is covered with IV Zosyn and vancomycin pending further cultures. The urine culture is positive for gram-negative bacillus at this point in time. Patient was seen today on 01/06/2024, patient remains in the ICU, she was extubated yesterday at 5 PM on 01/05/2024. Apparently the patient coded for about 4 minutes at the time she was brought into the ICU and she was having a left IJ catheter placement. The cath was basically for dialysis, and now she has a right femoral catheter. Patient is being treated for urinary tract infection secondary to Enterobacter, she is receiving Zosyn, patient seems to be doing well today, seems to be a bit slow, but overall she is doing well and she is on 2 L nasal cannula hemodynamically stable, not in any distress. WBC count is 4.6, hemoglobin 7.4 basic metabolic profile is normal BUN is 27 creatinine 2.14. Chest x-ray this morning showed mild interstitial pulmonary edema with small left pleural effusion and atelectasis Objective - Vital Signs Vital signs: Vital Signs Temp 97.8 F 01/06/24 12:00 Pulse 77 01/06/24 12:00 Resp 16 01/06/24 12:00 BP 109/75 01/06/24 12:00 Pulse Ox 96 01/06/24 12:00 FiO2 40 01/05/24 17:00 Intake & Output 01/05/24 01/06/24 01/06/24 18:59 06:59 18:59 Intake Total 1037.782 165 55 Output Total 6510 220 50 Balance -5472.218 -55 5 Weight 63.2 kg Intake: IV 80 65 55 0.9 80 65 55 Intake, IV Titration 557.782 100 Amount Piperacillin-Tazobactam 3 100 .375 gm In Sodium Chloride 0.9% 100 ml @ 25 mls/hr IVPB Q12H [facility] Rx# :[id number] Piperacillin-Tazobactam 3 100 100 .375 gm In Sodium Chloride 0.9% 100 ml @ 25 mls/hr IVPB Q8H [facility] Rx#: [id number] Vancomycin 1,250 mg In 250 Sodium Chloride 0.9% 250 ml @ 125 mls/hr IVPB ONCE ONE Rx#:[id number] propofoL 1,000 mg In 107.782 Empty Bag 1 bag @ 15 MCG/ KG/MIN 6.144 mls/hr IV . [id number] [facility] Rx#:[id number] Hemodialysis 400 Output: Urine 110 220 50 Hemodialysis 3400 Hemodialysis Net Amount 3000 Other: Voiding Method Indwelling Catheter Indwelling Catheter Indwelling Catheter # Bowel Movements 0 1 - Exam General: 58-year-old female on 2 L nasal cannula, not in any distress, patient was extubated yesterday. Head exam was generally normal. There was no scleral icterus or corneal arcus. Mucous membranes were moist. HEENT: Head is atraumatic, normocephalic, pupils were equal round , sclera nonicteric, conjunctivae were pale, moist mucous membranes. Neck: Supple, negative JVd, normal carotid upstroke bilaterally, no lymphadenopathy. Chest: Symmetrical chest expansion, diminished breath sounds at the bases no crackles rhonchi or wheezes Heart: Normal S1-S2, 2/6 systolic murmur throughout the left lower sternal border Abdomen: Soft, nontender, no megaly no rebound no guarding. Bowel sounds. Extremities: 1-2+ bipedal edema Neurologic examination: Alert and oriented x 3 no gross focal deficit Examination of the skin revealed no rashes. - Labs CBC & Chem 7: 01/06/24 06:11 01/06/24 06:11 Labs: Abnormal Lab Results - Last 24 Hours (Table) 01/05/24 01/06/24 01/06/24 Range/Units 16:42 01:39 06:11 RBC 2.79 L (3.80-5.40) m/uL Hgb 7.4 L (11.4-16.0) gm/dL Hct 25.4 L (34.0-46.0) % MCHC 29.0 L (31.0-37.0) g/dL RDW 18.2 H (11.5-15.5) % Lymphocytes # 0.3 L (1.0-4.8) k/uL ABG pO2 133 H (83-108) mmHg ABG HCO3 28 H (21-25) mmol/L ABG Total CO2 29 H (19-24) mmol/L ABG O2 Saturation 100.4 H (94-97) % Sodium (137-145) mmol/L BUN (7-17) mg/dL Creatinine (0.52-1.04) mg/dL Glucose (74-99) mg/dL POC Glucose (mg/dL) 69 L (70-110) mg/dL 01/06/24 Range/Units 06:11 RBC (3.80-5.40) m/uL Hgb (11.4-16.0) gm/dL Hct (34.0-46.0) % MCHC (31.0-37.0) g/dL RDW (11.5-15.5) % Lymphocytes # (1.0-4.8) k/uL ABG pO2 (83-108) mmHg ABG HCO3 (21-25) mmol/L ABG Total CO2 (19-24) mmol/L ABG O2 Saturation (94-97) % Sodium 135 L (137-145) mmol/L BUN 27 H (7-17) mg/dL Creatinine 2.14 H (0.52-1.04) mg/dL Glucose 69 L (74-99) mg/dL POC Glucose (mg/dL) (70-110) mg/dL Microbiology - Last 24 Hours (Table) 01/03/24 20:31 Gram Stain - Final Sputum Sputum Culture - Final Lacy albicans 01/03/24 15:56 Blood Culture - Preliminary Blood 01/03/24 15:50 Urine Culture - Final Urine,Voided Enterobacter cloacae Assessment and Plan Assessment: Impression: Acute PEA cardiac arrest, required brief CPR, intubation mechanical ventilation. End-stage disease on hemodialysis MRSA septicemia, treated with subsequent clearing of the blood cultures in early November 2023 Acute hypoxic respiratory failure secondary to above. Resolved was extubated on 01/05/2024 Congestion heart failure with preserved LV function Diabetes mellitus type 2 COPD Coronary artery disease with previous PCI and stenting of RCA Previous episodes of cardiac arrest back in July 2023 Hypertension Hyperlipidemia Chronic wounds in lower extremities involving the 1 in the right healed History of rectal prolapse Recommendation: Patient is now on nasal cannula, tolerated the extubation well yesterday, Continue present supportive care measures Continue hemodialysis patient has venous access/dialysis access in the right femoral vein Continue antibiotics for her UTI Continue aspirin Plavix Continue bronchodilators Transfer patient to S. Will continue to follow Time with Patient: Less than 30
[2024-01-06 17:11] LABS: Glucose,Whole Blood 159 mg/dL (70-110)
[2024-01-06 20:06] LABS: Glucose,Whole Blood 124 mg/dL (70-110)
[2024-01-06] MEDS: PIPERACILLIN-TAZOBACTAM 3.375 GM in SODIUM CHLORIDE 0.9% 100 ML IVPB SCH (20:37)
[2024-01-07 06:06] LABS: Glucose,Whole Blood 81 mg/dL (70-110)
[2024-01-07] MEDS: ZINC OXIDE PASTE (Z-GUARD) 1 APPLIC TOPICAL PRN (06:48)
[2024-01-07 07:21] LABS: African American GFR (CKD) 34 (>60 ml/min/1.73 sqM); Non-African American GFR(CKD) 30 (>60 ml/min/1.73 sqM)
--- NOTE | 2024-01-07 11:11 | P.PN ---
Subjective Patient is seen in follow-up for acute kidney injury, hemodialysis dependent. Sitting up in chair. On nasal cannula. Hemodynamically stable. Transferred out of the ICU. Vital signs are stable. General: No acute distress. HEENT: On nasal cannula. LUNGS: No audible rhonchi or wheezes. HEART: Rate and Rhythm are regular. ABDOMEN: No distention. EXTREMITITES: 1+ edema. Objective - Vital Signs Vital signs: Vital Signs Temp 97.6 F 01/07/24 08:10 Pulse 67 01/07/24 08:10 Resp 18 01/07/24 08:10 BP 132/68 01/07/24 08:10 Pulse Ox 100 01/07/24 08:10 FiO2 40 01/05/24 17:00 Intake & Output 01/06/24 01/07/24 01/07/24 18:59 06:59 18:59 Intake Total 475 0 Output Total 8455 75 Balance -7980 -75 0 Weight 63.2 kg 56.5 kg Intake: IV 75 0.9 75 Oral 0 Hemodialysis 400 Output: Urine 55 75 Hemodialysis 4400 Hemodialysis Net Amount 4000 Other: Voiding Method Indwelling Catheter Indwelling Catheter # Bowel Movements 1 - Labs CBC & Chem 7: 01/06/24 06:11 01/07/24 06:22 Labs: Abnormal Lab Results - Last 24 Hours (Table) 01/06/24 01/06/24 01/07/24 Range/Units 17:09 20:04 06:22 Creatinine 1.84 H (0.52-1.04) mg/dL POC Glucose (mg/dL) 159 H 124 H (70-110) mg/dL Microbiology - Last 24 Hours (Table) 01/03/24 15:56 Blood Culture - Preliminary Blood 01/03/24 20:31 Gram Stain - Final Sputum Sputum Culture - Final Lacy albicans Assessment and Plan Plan: Assessment: 1. Acute kidney injury secondary to ATN secondary to cardiorenal syndrome, sepsis, hemodialysis dependent. Currently has a femoral catheter that was placed January 03, 2024. 2. Status post cardiac arrest. 3. Volume overload. Improved with ultrafiltration. 4. Chronic kidney disease stage IV with baseline creatinine 2-2.5 secondary to cardiorenal syndrome, sepsis. Baseline creatinine 2-2.5. 5. Anemia of chronic kidney disease. On Aranesp. 6. Chronic kidney disease mineral bone disease maintained on PhosLo. Phosphorus level 5.5 dated January 04, 2024. 7. Diabetes mellitus. 8. Recent MRSA infection. On antibiotics. Plan: Hemodialysis tomorrow. Maintain torsemide. Monitor for renal recovery outpatient. Monitor vancomycin levels. Dose to be adjusted for renal function.
[2024-01-07 11:15] LABS: Glucose,Whole Blood 178 mg/dL (70-110)
[2024-01-07 13:37] LABS: Anisocytosis Slight; Basophils % (A) 1 %; Eosinophils # (A) 0.2 k/uL (0-0.7); Eosinophils % (A) 6 %; HCT 26.9 % (34.0-46.0); HGB 7.6 gm/dL (11.4-16.0); Hypochromasia Marked; Lymphocytes # (A) 0.4 k/uL (1.0-4.8); Lymphocytes % (A) 11 %; MCH 26.7 pg (25.0-35.0); MCHC 28.1 g/dL (31.0-37.0); Macrocytosis Slight; Mean Platelet Volume 10.2; Monocytes # (A) 0.3 k/uL (0-1.0); Monocytes % (A) 8 %; Neutrophils % (A) 71 %; Platelet Count 253 k/uL (150-450); RBC 2.83 m/uL (3.80-5.40); RDW 18.2 % (11.5-15.5); WBC 4.2 k/uL (3.8-10.6)
[2024-01-07 13:42] LABS: Anion Gap 8 mmol/L; Blood Urea Nitrogen 14 mg/dL (7-17); Calcium 8.5 mg/dL (8.4-10.2); Carbon Dioxide 27 mmol/L (22-30); Chloride 100 mmol/L (98-107); Glucose 81 mg/dL (74-99); Potassium 4.4 mmol/L (3.5-5.1); Sodium 135 mmol/L (137-145)
[2024-01-07] MEDS: VANCOMYCIN 1,250 MG in SODIUM CHLORIDE 0.9% 250 ML IVPB ONE (14:39)
--- NOTE | 2024-01-07 14:49 | P.PN ---
Subjective Progress Note Date: 01/07/24 Principal diagnosis: Cardiac arrest 58-year-old female patient, multiple medical problems including end-stage renal disease was on hemodialysis also known to have coronary artery disease with previous PCI and stenting of the RCA and known history of ischemic cardiomyopathy comes into the emergency department after losing her hemodialysis catheter. Apparently, her last hemodialysis session was on 01/02/2024. Based on that, the patient came in to ED and the patient was taken to [facility] for insertion of a new hemodialysis catheter. While in [facility], the patient was given fentanyl and during the procedure, the patient became pulseless. Details are not available. It was noted that the patient was in a PEA rhythm. The patient was given CPR, 2 rounds of epi, intubated and there was return of spontaneous circulation. Following that, the patient was kept intubated and she was transferred to the intensive care unit for further care. At this point in time, the patient is sedated on propofol and she is hemodynamically stable on no pressors. Her current vent setting includes AC of 14, tidal volume of 400, FiO2 100% and PEEP of 5. Patient was given a blood gas that showed a pH of 7.37 with a pCO2 of 49 and a pO2 of 63. Sodium is at 133, potassium is at 4.6, bicarb is 26 with a BUN of 47 and a creatinine of 3.58. LFTs showed alkaline phosphatase of 203. UA showing +2 protein, many WBCs, many bacteria, 49 RBCs, and the white cell count of 5.6 with a hemoglobin 8.2 and a platelet count of 228. Initial chest x-ray was within normal limits. Subsequent chest x-ray postintubation showed pulmonary edema. On a separate note, the patient was hospitalized in early November for sepsis. At that time, the blood culture was positive for MRSA and the patient was treated with vancomycin. She required removal of previously inserted dialysis catheter and she completed a total of 4 weeks course of IV antibiotics with daptomycin. Most recent blood cultures have been negative. On 01/04/2024, the patient remains intubated on mechanical ventilator. This morning, the patient on a propofol running at 45 mcg/kg/min. She remains intubated on the mechanical ventilator. Assist-control mode with rate of 14, tidal volume of 400, FiO2 50% with a PEEP of 5. Chest x-ray shows pulmonary edema. Blood gas shows a pH of 7.46 with a pCO2 of 39 and pO2 of 68. Cardiac rhythm is sinus. She is afebrile and hemodynamically stable. White cell count is 6.4 with a hemoglobin 7.2 and a platelet count of 200. Sodium levels at 132, BUN 52 with a creatinine of 3.4 and a potassium levels of 4.2. Remains on Zosyn and vancomycin. Blood cultures have been sent and results are still pending. Echocardiogram was also ordered. Doppler of the neck area revealed nonocclusive band of filling defect in the internal jugular vein that is thought to be representing a thrombus. This is corroborated to the previous catheter insertion. She remains on aspirin and Plavix. She remains on IV Zosyn and vancomycin for now. Urine output is minimal and Lasix will be discontinued. She is on no pressors for now. 01/05/2024, the patient is being seen for a follow-up. The patient remains intubated on mechanical ventilator. The patient underwent hemodialysis yesterday a total of 3 L of fluid and ultrafiltration was done. This morning's chest x-ray still showing to some residual pulmonary edema. The patient remains sedated on propofol which is running at 40 mcg/kg/min. She is on a mechanical ventilator on assist-control mode with rate of 14, tidal volume of 400, FiO2 of 40% with a PEEP of 5. Blood gas showed a pH of 7.44 with pCO2 44 and pO2 of 126. Minimal urine output at this point in time. Hemodynamically stable. Afebrile. Remains NPO. Home medications will be resumed. In addition, the patient is covered with IV Zosyn and vancomycin pending further cultures. The urine culture is positive for gram-negative bacillus at this point in time. Patient was seen today on 01/06/2024, patient remains in the ICU, she was extubated yesterday at 5 PM on 01/05/2024. Apparently the patient coded for about 4 minutes at the time she was brought into the ICU and she was having a left IJ catheter placement. The cath was basically for dialysis, and now she has a right femoral catheter. Patient is being treated for urinary tract infection secondary to Enterobacter, she is receiving Zosyn, patient seems to be doing well today, seems to be a bit slow, but overall she is doing well and she is on 2 L nasal cannula hemodynamically stable, not in any distress. WBC count is 4.6, hemoglobin 7.4 basic metabolic profile is normal BUN is 27 creatinine 2.14. Chest x-ray this morning showed mild interstitial pulmonary edema with small left pleural effusion and atelectasis Patient was evaluated today on 01/07/2024, patient is doing well, she was transferred yesterday out of the ICU, and now she is on 3 S. Patient is doing great, relatively asymptomatic, no active pulmonary symptoms, patient is being followed by nephrology and still undergoing hemodialysis. WBC count is 4.2 hemoglobin 7.6 electrolytes are normal BUN is 14 creatinine 1.84 chest x-ray yesterday showed some mild interstitial edema and small left pleural effusion with atelectasis. Objective - Vital Signs Vital signs: Vital Signs Temp 98.5 F 01/07/24 11:23 Pulse 80 01/07/24 11:48 Resp 19 01/07/24 11:23 BP 136/71 01/07/24 11:23 Pulse Ox 100 01/07/24 11:23 FiO2 40 01/05/24 17:00 Intake & Output 01/06/24 01/07/24 01/07/24 18:59 06:59 18:59 Intake Total 475 240 Output Total 8455 75 Balance -7980 -75 240 Weight 63.2 kg 56.5 kg Intake: IV 75 0.9 75 Oral 240 Hemodialysis 400 Output: Urine 55 75 Hemodialysis 4400 Hemodialysis Net Amount 4000 Other: Voiding Method Indwelling Catheter Indwelling Catheter Indwelling Catheter # Bowel Movements 1 1 - Exam General: 58-year-old female on room air, not in any distress Head exam was generally normal. There was no scleral icterus or corneal arcus. Mucous membranes were moist. HEENT: Head is atraumatic, normocephalic, pupils were equal round , sclera nonicteric, conjunctivae were pale, moist mucous membranes. Neck: Supple, negative JVd, normal carotid upstroke bilaterally, no lymphadenopathy. Chest: Symmetrical chest expansion, diminished breath sounds at the bases no crackles rhonchi or wheezes Heart: Normal S1-S2, 2/6 systolic murmur throughout the left lower sternal border Abdomen: Soft, nontender, no megaly no rebound no guarding. Bowel sounds. Extremities: Plus bipedal edema Neurologic examination: Alert and oriented x 3 no gross focal deficit Examination of the skin revealed no rashes. - Labs CBC & Chem 7: 01/07/24 06:22 01/07/24 06:22 Labs: Abnormal Lab Results - Last 24 Hours (Table) 01/06/24 01/06/24 01/07/24 Range/Units 17:09 20:04 06:22 RBC (3.80-5.40) m/uL Hgb (11.4-16.0) gm/dL Hct (34.0-46.0) % MCHC (31.0-37.0) g/dL RDW (11.5-15.5) % Lymphocytes # (1.0-4.8) k/uL Sodium 135 L (137-145) mmol/L Creatinine 1.84 H (0.52-1.04) mg/dL POC Glucose (mg/dL) 159 H 124 H (70-110) mg/dL 01/07/24 01/07/24 Range/Units 06:22 11:13 RBC 2.83 L (3.80-5.40) m/uL Hgb 7.6 L (11.4-16.0) gm/dL Hct 26.9 L (34.0-46.0) % MCHC 28.1 L (31.0-37.0) g/dL RDW 18.2 H (11.5-15.5) % Lymphocytes # 0.4 L (1.0-4.8) k/uL Sodium (137-145) mmol/L Creatinine (0.52-1.04) mg/dL POC Glucose (mg/dL) 178 H (70-110) mg/dL Microbiology - Last 24 Hours (Table) 01/03/24 15:56 Blood Culture - Preliminary Blood 01/03/24 20:31 Gram Stain - Final Sputum Sputum Culture - Final Lacy albicans Assessment and Plan Assessment: Impression: Acute PEA cardiac arrest, required brief CPR, intubation mechanical ventilation. End-stage disease on hemodialysis MRSA septicemia, treated with subsequent clearing of the blood cultures in early November 2023 Acute hypoxic respiratory failure secondary to above. Resolved was extubated on 01/05/2024 Congestion heart failure with preserved LV function Diabetes mellitus type 2 COPD Coronary artery disease with previous PCI and stenting of RCA Previous episodes of cardiac arrest back in July 2023 Hypertension Hyperlipidemia Chronic wounds in lower extremities involving the 1 in the right healed History of rectal prolapse Recommendation: Patient is now on room air, no active complaints not in any distress Continue present supportive care measures Continue hemodialysis patient has venous access/dialysis access in the right femoral vein Continue antibiotics for her UTI Continue aspirin Plavix Continue bronchodilators Will continue to follow Time with Patient: Less than 30
[2024-01-07 16:24] LABS: Glucose,Whole Blood 213 mg/dL (70-110)
--- NOTE | 2024-01-07 18:25 | P.PN ---
Subjective Progress Note Date: 01/06/24 HISTORY OF PRESENT ILLNESS: This is a 58-year-old female with a previous medical history signif icant for coronary artery disease status post PCI of the RCA 2023 with ischemic cardiomyopathy, hypertension and hypertensive cardiovascular disease, hyperlipidemia, diabetes mellitus type 2 uncontrolled, fracture of the right medial and lateral malleolus, anemia of chronic kidney disease, COPD, epistaxis, chronic kidney disease stage 4 due to cardiorenal syndrome she ended up getting started on dialysis on the last hospital admission about a month ago when she was admitted to the hospital with fluid overload and acute systolic heart failure and worsening renal failure despite aggressive diuresis, and using significant amount of diuretics, patient ended up going on dialysis she had a permanent catheter placed in the right internal jugular vein, and patient developed to have a significant MRSA bacteremia that required removal of the dialysis catheter and subsequently she was treated with IV antibiotic for a total I believe of 4 weeks of IV antibiotic in the form of daptomycin, patient b lood cultures normalizes, the patient ended up having another permacatheter placed in the left internal jugular vein, and the patient was discharged to [facility] and she has been there she has been going to dialysis at [facility], [place] and she has been doing fine apparently patient underwent dialysis yesterday, and she had pulled her dialysis catheter today she ended up coming to the ER for evaluation she was taken to the [facility] for replacement of the the left internal jugular catheter but the patient became quite agitated, and she went into pulseless electrical activity she did receive 2 epinephrine, she was intubated at the [facility], she was admitted to the ICU, she was admitted under my service, with consultation to Dr. Romo from intensive care unit, patient is currently being seen in the ICU, she is currently on the ventilator, she is sedated with Precedex, and had a chest x-ray in the ICU that showed evidence of significant pulmonary vascular congestion as well as bilateral pulmonary infiltrates, patient may have had aspirated, she will be started on Zosyn 3.375 g of piggyback every 8 hours as well as vancomycin pharmacy to dose its peak and trough, patient will have a sputum culture, blood culture, urine culture, and she will be seen in consultation by cash grain farmer, she will be seen in consultation by infectious disease Dr. Subramanian as well. 01/05: Patient is sitting up in a chair in no apparent distress, patient underwent hemodialysis she just had 4 L taken out, she continues to have significant restless leg syndrome and she has been getting ropinirole 2 mg at bedtime, we will continue to monitor the patient very closely, patient has been maintained o n vancomycin as well as Zosyn for now, we will continue to monitor the patient very closely, monitor the culture, the plan is for the patient to be transferred back to [facility] when the patient is more stable. Likely the patient will be moved to monitored bed in the next 24 hours. REVIEW OF SYSTEMS: Constitutional: No documented fever, no chills, no night sweats. No weight c hange. No weakness, fatigue or lethargy. No daytime sleepiness. EENT: No headache. No blurred vision or double vision, no loss of vision. No loss of Hearing, no ringing in the ears, no dizziness. No nasal drainage or congestion. No epistaxis. No sore throat. Lungs: No shortness of breath, no cough, no sputum production. No wheezing. Reports dyspnea with activity. Cardiovascular: No chest pain, no lower extremity edema. No palpitations. No paroxysmal nocturnal dyspnea. No orthopnea. No lightheadedness or dizziness. No syncopal episodes. Abdominal: Reports no abdominal pain. No nausea, vomiting. No diarrhea. No constipation. No bloody or tarry stools reports loss of appetite. Genitourinary: No dysuria, increased frequency, urgency. No urinary retention. [place] catheter in place. Musculoskeletal: No myalgias. No muscle weakness, positive for gait dysfunction, no frequent falls. No back pain. No neck pain. Integumentary: Right heel wound appears to have a clean base no lesions. No rash or pruritus. No unusual bruising. No change in hair or nails. Neurologic: No aphasia. No facial droop. No change in mentation. No head injury. No headache. No paralysis. No paresthesia. Psychiatric: No depression. No anxiety. No mood swings. Endocrine: No abnormal blood sugars. No weight change. PHYSICAL EXAMINATION: General: 58-year-old female sitting up in bed in no apparent distress. HEENT: Head is atraumatic, normocephalic, pupils were equal round , sclera nonicteric, conjunctivae were pale, mucous membranes of the mouth are somewhat dry. Neck: Supple, Increased JVP, normal carotid upstroke bilaterally, no lymphadenopathy. Chest: Decreased breath sounds at the bases, few rhonchi, moderate minimal expiratory wheezes, no chest wall tenderness, moderate intercostal retractions. Heart: First heart sound is normal, second heart sound is normal there is systolic ejection murmur 2/6 located in the left sternal border. Abdomen: Soft, nontender, nondistended, positive bowel sounds increased abdominal wall edema. Extremities: There is +2 edema no calf tenderness DP +1 bilaterally. Right ear scab. Neurologic examination: Patient is awake alert and oriented x 3, cranial nerves III to XII appear gross intact, muscle power for 4 out of 5 in bilateral upper extremities and 3 out of 5 in the bilateral lower extremities. ASSESSMENT AND PLAN: 1. Acute hypoxemic vent dependent respiratory failure due to cardiac arrest/pulseless electrical activity status post 2 epinephrine via ACLS protocol. Patient since was extubated and she is currently maintained on 2 L nasal cannula. 2. Acute on chronic systolic heart failure. Continue with hemodialysis Saturday and Saturday, monitor the patient input and output and daily weight continue hydralazine 25 mg orally twice every day. 3. Acute hypoxemic respiratory failure due to cardiac arrest as well as possible aspiration pneumonia. Continue patient on Zosyn and vancomycin, continue to monitor the patient culture, continue aggressive pulmonary toileting. 4. Coronary artery disease status post PCI of the RCA. Continue patient on aspirin 81 mg once every day, Plavix 75 mg once every day, atorvastatin 40 mg orally once every day. 5. Hypertension and hypertensive cardiovascular disease. Continue hydralazine 25 mg orally twice every day, monitor the patient blood pressure very closely. 6. Mixed hyperlipidemia. Continue patient on atorvastatin 40 mg orally once every day, monitor lipid panel, keep LDL 55-70. 7. Diabetes mellitus type 2. Continue patient on sliding scale insulin. 8. Close leg syndrome. Continue ropinirole 2 mg orally once at bedtime. 9. Anemia of chronic kidney disease. Continue to monitor the patient CBC. 10. Hypothyroidism. Continue levothyroxine 75 mcg orally once every day. 11. COPD exacerbation continue patient on DuoNeb 3 mm laceration 4 times every day, continue oxygen 2 L nasal cannula, pulmonary is following. 12. Chronic hypoxemic respiratory failure due to combination of nonischemic cardiomyopathy and COPD. Continue treatment as in the first and second paragraph. 13. Subacute fracture of the medial and lateral malleolus currently in boot no surgical intervention is planned 14. GERD. Continue pantoprazole 40 mg orally once every day. 15. DVT prophylaxis. Heparin 5000 units subcutaneous every 12 hours. 16. Medical debility. Disposition is for the patient to go back to [facility]. Objective - Vital Signs Vital signs: Vital Signs Temp 97.8 F 01/06/24 12:00 Pulse 77 01/06/24 12:00 Resp 16 01/06/24 12:00 BP 109/75 01/06/24 12:00 Pulse Ox 96 01/06/24 12:00 FiO2 40 01/05/24 17:00 Intake & Output 01/05/24 01/06/24 01/06/24 18:59 06:59 18:59 Intake Total 1037.782 165 55 Output Total 6510 220 50 Balance -5472.218 -55 5 Weight 63.2 kg Intake: IV 80 65 55 0.9 80 65 55 Intake, IV Titration 557.782 100 Amount Piperacillin-Tazobactam 3 100 .375 gm In Sodium Chloride 0.9% 100 ml @ 25 mls/hr IVPB Q12H [facility] Rx# :[id number] Piperacillin-Tazobactam 3 100 100 .375 gm In Sodium Chloride 0.9% 100 ml @ 25 mls/hr IVPB Q8H [facility] Rx#: [id number] Vancomycin 1,250 mg In 250 Sodium Chloride 0.9% 250 ml @ 125 mls/hr IVPB ONCE ONE Rx#:[id number] propofoL 1,000 mg In 107.782 Empty Bag 1 bag @ 15 MCG/ KG/MIN 6.144 mls/hr IV . [id number] [facility] Rx#:[id number] Hemodialysis 400 Output: Urine 110 220 50 Hemodialysis 3400 Hemodialysis Net Amount 3000 Other: Voiding Method Indwelling Catheter Indwelling Catheter Indwelling Catheter # Bowel Movements 0 1 - Labs CBC & Chem 7: 01/07/24 06:22 01/07/24 06:22 Labs: Abnormal Lab Results - Last 24 Hours (Table) 01/05/24 01/06/24 01/06/24 Range/Units 16:42 01:39 06:11 RBC 2.79 L (3.80-5.40) m/uL Hgb 7.4 L (11.4-16.0) gm/dL Hct 25.4 L (34.0-46.0) % MCHC 29.0 L (31.0-37.0) g/dL RDW 18.2 H (11.5-15.5) % Lymphocytes # 0.3 L (1.0-4.8) k/uL ABG pO2 133 H (83-108) mmHg ABG HCO3 28 H (21-25) mmol/L ABG Total CO2 29 H (19-24) mmol/L ABG O2 Saturation 100.4 H (94-97) % Sodium (137-145) mmol/L BUN (7-17) mg/dL Creatinine (0.52-1.04) mg/dL Glucose (74-99) mg/dL POC Glucose (mg/dL) 69 L (70-110) mg/dL 01/06/24 Range/Units 06:11 RBC (3.80-5.40) m/uL Hgb (11.4-16.0) gm/dL Hct (34.0-46.0) % MCHC (31.0-37.0) g/dL RDW (11.5-15.5) % Lymphocytes # (1.0-4.8) k/uL ABG pO2 (83-108) mmHg ABG HCO3 (21-25) mmol/L ABG Total CO2 (19-24) mmol/L ABG O2 Saturation (94-97) % Sodium 135 L (137-145) mmol/L BUN 27 H (7-17) mg/dL Creatinine 2.14 H (0.52-1.04) mg/dL Glucose 69 L (74-99) mg/dL POC Glucose (mg/dL) (70-110) mg/dL Microbiology - Last 24 Hours (Table) 01/03/24 20:31 Gram Stain - Final Sputum Sputum Culture - Final Lacy albicans 01/03/24 15:56 Blood Culture - Preliminary Blood 01/03/24 15:50 Urine Culture - Final Urine,Voided Enterobacter cloacae
--- NOTE | 2024-01-07 18:27 | P.PN ---
Subjective Progress Note Date: 01/07/24 HISTORY OF PRESENT ILLNESS: This is a 58-year-old female with a previous medical history signif icant for coronary artery disease status post PCI of the RCA 2023 with ischemic cardiomyopathy, hypertension and hypertensive cardiovascular disease, hyperlipidemia, diabetes mellitus type 2 uncontrolled, fracture of the right medial and lateral malleolus, anemia of chronic kidney disease, COPD, epistaxis, chronic kidney disease stage 4 due to cardiorenal syndrome she ended up getting started on dialysis on the last hospital admission about a month ago when she was admitted to the hospital with fluid overload and acute systolic heart failure and worsening renal failure despite aggressive diuresis, and using significant amount of diuretics, patient ended up going on dialysis she had a permanent catheter placed in the right internal jugular vein, and patient developed to have a significant MRSA bacteremia that required removal of the dialysis catheter and subsequently she was treated with IV antibiotic for a total I believe of 4 weeks of IV antibiotic in the form of daptomycin, patient b lood cultures normalizes, the patient ended up having another permacatheter placed in the left internal jugular vein, and the patient was discharged to [facility] and she has been there she has been going to dialysis at [facility] and she has been doing fine apparently patient underwent dialysis yesterday, and she had pulled her dialysis catheter today she ended up coming to the ER for evaluation she was taken to the [facility] for replacement of the the left internal jugular catheter but the patient became quite agitated, and she went into pulseless electrical activity she did receive 2 epinephrine, she was intubated at the [facility], she was admitted to the ICU, she was admitted under my service, with consultation to Dr. Romo from intensive care unit, patient is currently being seen in the ICU, she is currently on the ventilator, she is sedated with Precedex, and had a chest x-ray in the ICU that showed evidence of significant pulmonary vascular congestion as well as bilateral pulmonary infiltrates, patient may have had aspirated, she will be started on Zosyn 3.375 g of piggyback every 8 hours as well as vancomycin pharmacy to dose its peak and trough, patient will have a sputum culture, blood culture, urine culture, and she will be seen in consultation by poultry processor, she will be seen in consultation by infectious disease Dr. Subramanian as well. 01/05: Patient is sitting up in a chair in no apparent distress, patient underwent hemodialysis she just had 4 L taken out, she continues to have significant restless leg syndrome and she has been getting ropinirole 2 mg at bedtime, we will continue to monitor the patient very closely, patient has been maintained o n vancomycin as well as Zosyn for now, we will continue to monitor the patient very closely, monitor the culture, the plan is for the patient to be transferred back to [facility] when the patient is more stable. Likely the patient will be moved to monitored bed in the next 24 hours. 01/06: Send has significant restless leg overnight we will increase her ropinirole to 2 mg orally twice every day, monitor the patient very closely, patient is scheduled to go for hemodialysis tomorrow morning, urine culture showed evidence of Enterobacter cloacae that is resistant to a lot of antibiotic except for Zosyn which she is on sputum culture showed Lacy albicans which considered to be normal ananya, maintain the patient on current IV antibiotic, discontinue vancomycin and Zosyn tomorrow morning and start the patient on Augmentin 500/125 mg orally twice every day for the next 7 days. Patient most likely will be able to be discharged back to [facility] tomorrow morning. REVIEW OF SYSTEMS: Constitutional: No documented fever, no chills, no night sweats. No weight change. No weakness, fatigue or lethargy. No daytime sleepiness. EENT: No headache. No blurred vision or double vision, no loss of vision. No loss of Hearing, no ringing in the ears, no dizziness. No nasal drainage or congestion. No epistaxis. No sore throat. Lungs: No shortness of breath, no cough, no sputum production. No wheezing. Reports dyspnea with activity. Cardiovascular: No chest pain, no lower extremity edema. No palpitations. No paroxysmal nocturnal dyspnea. No orthopnea. No lightheadedness or dizziness. No syncopal episodes. Abdominal: Reports no abdominal pain. No nausea, vomiting. No diarrhea. No constipation. No bloody or tarry stools reports loss of appetite. Genitourinary: No dysuria, increased frequency, urgency. No urinary retention. H[place] catheter in place. Musculoskeletal: No myalgias. No muscle weakness, positive for gait dysfunction, no frequent falls. No back pain. No neck pain. Integumentary: Right heel wound appears to have a clean base no lesions. No rash or pruritus. No unusual bruising. No change in hair or nails. Neurologic: No aphasia. No facial droop. No change in mentation. No head injury. No headache. No paralysis. No paresthesia. Psychiatric: No depression. No anxiety. No mood swings. Endocrine: No abnormal blood sugars. No weight change. PHYSICAL EXAMINATION: General: 58-year-old female sitting up in bed in no apparent distress. HEENT: Head is atraumatic, normocephalic, pupils were equal round , sclera nonicteric, conjunctivae were pale, mucous membranes of the mouth are somewhat dry. Neck: Supple, Increased JVP, normal carotid upstroke bilaterally, no lymphadenopathy. Chest: Decreased breath sounds at the bases, few rhonchi, moderate minimal expiratory wheezes, no chest wall tenderness, moderate intercostal retractions. Heart: First heart sound is normal, second heart sound is normal there is systolic ejection murmur 2/6 located in the left sternal border. Abdomen: Soft, nontender, nondistended, positive bowel sounds increased abdominal wall edema. Extremities: There is +2 edema no calf tenderness DP +1 bilaterally. Right ear scab. Neurologic examination: Patient is awake alert and oriented x 3, cranial nerves III to XII appear gross intact, muscle power for 4 out of 5 in bilateral upper extremities and 3 out of 5 in the bilateral lower extremities. ASSESSMENT AND PLAN: 1. Acute hypoxemic vent dependent respiratory failure due to cardiac arrest/pulseless electrical activity status post 2 epinephrine via ACLS protocol. Patient since was extubated and she is currently maintained on 2 L nasal cannula. 2. Acute on chronic systolic heart failure. Continue with hemodialysis Saturday and Saturday, monitor the patient input and output and daily weight con tinue hydralazine 25 mg orally twice every day. 3. Acute hypoxemic respiratory failure due to cardiac arrest as well as possible aspiration pneumonia. Continue patient on Zosyn and vancomycin, cont inue to monitor the patient culture, continue aggressive pulmonary toileting. 4. Coronary artery disease status post PCI of the RCA. Continue patient on aspirin 81 mg once every day, Plavix 75 mg once every day, atorvastatin 40 mg orally once every day. 5. Hypertension and hypertensive cardiovascular disease. Continue hydralazine 25 mg orally twice every day, monitor the patient blood pressure very closely. 6. Mixed hyperlipidemia. Continue patient on atorvastatin 40 mg orally once every day, monitor lipid panel, keep LDL 55-70. 7. Diabetes mellitus type 2. Continue patient on sliding scale insulin. 8. Close leg syndrome. Continue ropinirole 2 mg orally once at bedtime. 9. Anemia of chronic kidney disease. Continue to monitor the patient CBC. 10. Hypothyroidism. Continue levothyroxine 75 mcg orally once every day. 11. COPD exacerbation continue patient on DuoNeb 3 mm laceration 4 times every day, continue oxygen 2 L nasal cannula, pulmonary is following. 12. Chronic hypoxemic respiratory failure due to combination of nonischemic cardiomyopathy and COPD. Continue treatment as in the first and second paragraph. 13. Subacute fracture of the medial and lateral malleolus currently in boot no surgical intervention is planned 14. GERD. Continue pantoprazole 40 mg orally once every day. 15. DVT prophylaxis. Heparin 5000 units subcutaneous every 12 hours. 16. Medical debility. Disposition is for the patient to go back to [facility]. Tomorrow morning. Objective - Vital Signs Vital signs: Vital Signs Temp 98.5 F 01/07/24 11:23 Pulse 80 01/07/24 11:48 Resp 19 01/07/24 11:23 BP 136/71 01/07/24 11:23 Pulse Ox 100 01/07/24 11:23 FiO2 40 01/05/24 17:00 Intake & Output 01/06/24 01/07/24 01/07/24 18:59 06:59 18:59 Intake Total 475 0 Output Total 8455 75 Balance -7980 -75 0 Weight 63.2 kg 56.5 kg Intake: IV 75 0.9 75 Oral 0 Hemodialysis 400 Output: Urine 55 75 Hemodialysis 4400 Hemodialysis Net Amount 4000 Other: Voiding Method Indwelling Catheter Indwelling Catheter Indwelling Catheter # Bowel Movements 1 1 - Labs CBC & Chem 7: 01/07/24 06:22 01/07/24 06:22 Labs: Abnormal Lab Results - Last 24 Hours (Table) 01/06/24 01/06/24 01/07/24 Range/Units 17:09 20:04 06:22 Creatinine 1.84 H (0.52-1.04) mg/dL POC Glucose (mg/dL) 159 H 124 H (70-110) mg/dL 01/07/24 Range/Units 11:13 Creatinine (0.52-1.04) mg/dL POC Glucose (mg/dL) 178 H (70-110) mg/dL Microbiology - Last 24 Hours (Table) 01/03/24 15:56 Blood Culture - Preliminary Blood 01/03/24 20:31 Gram Stain - Final Sputum Sputum Culture - Final Lacy albicans
[2024-01-07 19:57] LABS: Glucose,Whole Blood 131 mg/dL (70-110)
[2024-01-08 01:20] LABS: Glucose,Whole Blood 159 mg/dL (70-110)
[2024-01-08] MEDS: MORPHINE SULFATE 2 MG/ML SYRINGE IVP PRN (01:23)
[2024-01-08] MEDS: MORPHINE SULFATE 4 MG/ML SYRINGE IVP PRN (02:31)
[2024-01-08 02:50] LABS: Anisocytosis Slight; Basophils % (A) 0 %; Eosinophils # (A) 0.3 k/uL (0-0.7); Eosinophils % (A) 6 %; HCT 27.7 % (34.0-46.0); HGB 7.7 gm/dL (11.4-16.0); Hypochromasia Marked; Lymphocytes # (A) 0.4 k/uL (1.0-4.8); Lymphocytes % (A) 7 %; MCH 26.1 pg (25.0-35.0); MCHC 27.9 g/dL (31.0-37.0); MCV 93.7 fL (80.0-100.0); Mean Platelet Volume 8.9; Monocytes # (A) 0.4 k/uL (0-1.0); Monocytes % (A) 7 %; Neutrophils % (A) 77 %; Platelet Count 251 k/uL (150-450); Poikilocytosis Slight; RBC 2.96 m/uL (3.80-5.40); RDW 18.2 % (11.5-15.5); WBC 5.2 k/uL (3.8-10.6)
[2024-01-08 02:55] LABS: ALT 10 U/L (4-34); AST 31 U/L (14-36); African American GFR (CKD) 25 (>60 ml/min/1.73 sqM); Albumin 3.3 g/dL (3.5-5.0); Alkaline Phosphatase 208 U/L (38-126); Amylase 50 U/L (30-110); Anion Gap 9 mmol/L; Blood Urea Nitrogen 20 mg/dL (7-17); Calcium 8.5 mg/dL (8.4-10.2); Carbon Dioxide 24 mmol/L (22-30); Chloride 99 mmol/L (98-107); Glucose 150 mg/dL (74-99); Lipase 58 U/L (23-300); Non-African American GFR(CKD) 22 (>60 ml/min/1.73 sqM); Potassium 4.4 mmol/L (3.5-5.1); Sodium 132 mmol/L (137-145); Total Bilirubin 0.9 mg/dL (0.2-1.3); Total Protein 7.3 g/dL (6.3-8.2)
--- NOTE | 2024-01-08 04:47 | XR ---
EXAM: XR Abdomen, 2 Views CLINICAL HISTORY: ITS.REASON XR Reason: abd pain TECHNIQUE: Frontal view of the abdomen/pelvis with upright view of the abdomen. COMPARISON: Single view of the abdomen August 29, 2023 IMPRESSION: 1. No free air. 2. No evidence of bowel obstruction. Paucity of bowel gas somewhat limits evaluation. There is further concern, consider cross-sectional imaging.
[2024-01-08 06:09] LABS: Glucose,Whole Blood 154 mg/dL (70-110)
--- NOTE | 2024-01-08 08:17 | US ---
EXAMINATION TYPE: US abdomen complete DATE OF EXAM: 01/08/2024 COMPARISON: 08/22/23 CLINICAL INDICATION: Female, 58 years old with history of abd pain; abd pain Hx cholecystitis TECHNIQUE: Multiple sonographic images of the abdomen are obtained. FINDINGS: EXAM MEASUREMENTS: Liver Length: 17.2 cm Gallbladder Wall: 0.4 cm CBD: 0.5 cm Spleen: 12.9 cm Right Kidney: 10.4x4.6x6.2 cm Left Kidney: obscured by bowel gas Pancreas: Only a small portion of the pancreatic head and neck is seen. The body and tail is obscure d by bowel gas shadowing. Liver: Borderline enlarged. No focal lesion seen. Gallbladder: sludge, thickened wall. Nonshadowing echogenic focus measuring 1.4 cm, probably tumefac tive sludge. There may be trace pericholecystic fluid also present. Evidence for sonographic Simental's sign: No CBD: wnl Spleen: wnl Right Kidney: wnl Left Kidney: wnl Upper IVC: wnl Abd Aorta: wnl Distance Education Teacher notes: Right pleural effusion Exam limited by patient cooperation, limited mobility, bowel gas, rib shadows IMPRESSION: 1. Despite the negative sonographic Simental sign, there is gallbladder wall thickening, tumefactive sl udge, and possible trace pericholecystic fluid. Query any recent pain medication. Further clinical co rrelation for any suspected acute or chronic cholecystitis. HIDA scan if indicated. 2. No biliary ductal dilatation. 3. Unable to visualize left kidney. Most of the pancreas is also suboptimally visualized.
[2024-01-08 08:43] LABS: Anisocytosis Slight; HCT 27.7 % (34.0-46.0); HGB 8.1 gm/dL (11.4-16.0); Hypochromasia Marked; MCH 27.3 pg (25.0-35.0); MCV 93.9 fL (80.0-100.0); Mean Platelet Volume 8.8; Platelet Count 249 k/uL (150-450); Poikilocytosis Slight; RBC 2.96 m/uL (3.80-5.40); RDW 18.2 % (11.5-15.5); WBC 6.1 k/uL (3.8-10.6)
[2024-01-08 08:46] LABS: ALT 10 U/L (4-34); AST 28 U/L (14-36); African American GFR (CKD) 23 (>60 ml/min/1.73 sqM); Albumin 3.4 g/dL (3.5-5.0); Alkaline Phosphatase 204 U/L (38-126); Anion Gap 8 mmol/L; Blood Urea Nitrogen 21 mg/dL (7-17); Calcium 8.8 mg/dL (8.4-10.2); Carbon Dioxide 25 mmol/L (22-30); Chloride 93 mmol/L (98-107); Glucose 137 mg/dL (74-99); Non-African American GFR(CKD) 20 (>60 ml/min/1.73 sqM); Potassium 4.3 mmol/L (3.5-5.1); Sodium 126 mmol/L (137-145); Total Bilirubin 0.8 mg/dL (0.2-1.3); Total Protein 7.5 g/dL (6.3-8.2)
[2024-01-08 08:51] LABS: Vancomycin,Random 28.9 ug/mL
--- NOTE | 2024-01-08 10:17 | P.PN ---
Subjective Patient is seen in follow-up for acute kidney injury, hemodialysis dependent. Tolerating dialysis well. On nasal cannula. Hemodynamically stable. Complained of abdominal pain this morning and had an ultrasound done. Vital signs are stable. General: No acute distress. HEENT: On nasal cannula. LUNGS: No audible rhonchi or wheezes. HEART: Rate and Rhythm are regular. ABDOMEN: No distention. EXTREMITITES: 1+ edema. Objective - Vital Signs Vital signs: Vital Signs Temp 97.6 F 01/08/24 08:00 Pulse 74 01/08/24 09:34 Resp 18 01/08/24 09:34 BP 129/73 01/08/24 08:00 Pulse Ox 99 01/08/24 09:24 FiO2 40 01/05/24 17:00 Intake & Output 01/07/24 01/08/24 01/08/24 18:59 06:59 18:59 Intake Total 240 120 Balance 240 120 Weight 52.5 kg Intake: Oral 240 120 Other: Voiding Method Indwelling Catheter Indwelling Catheter Bedpan # Bowel Movements 1 1 - Labs CBC & Chem 7: 01/08/24 07:50 01/08/24 07:50 Labs: Abnormal Lab Results - Last 24 Hours (Table) 01/07/24 01/07/24 01/07/24 Range/Units 06:22 06:22 11:13 RBC 2.83 L (3.80-5.40) m/uL Hgb 7.6 L (11.4-16.0) gm/dL Hct 26.9 L (34.0-46.0) % MCHC 28.1 L (31.0-37.0) g/dL RDW 18.2 H (11.5-15.5) % Lymphocytes # 0.4 L (1.0-4.8) k/uL Sodium 135 L (137-145) mmol/L Chloride (98-107) mmol/L BUN (7-17) mg/dL Creatinine 1.84 H (0.52-1.04) mg/dL Glucose (74-99) mg/dL POC Glucose (mg/dL) 178 H (70-110) mg/dL Alkaline Phosphatase (38-126) U/L Albumin (3.5-5.0) g/dL 01/07/24 01/07/24 01/08/24 Range/Units 16:19 19:56 01:18 RBC (3.80-5.40) m/uL Hgb (11.4-16.0) gm/dL Hct (34.0-46.0) % MCHC (31.0-37.0) g/dL RDW (11.5-15.5) % Lymphocytes # (1.0-4.8) k/uL Sodium (137-145) mmol/L Chloride (98-107) mmol/L BUN (7-17) mg/dL Creatinine (0.52-1.04) mg/dL Glucose (74-99) mg/dL POC Glucose (mg/dL) 213 H 131 H 159 H (70-110) mg/dL Alkaline Phosphatase (38-126) U/L Albumin (3.5-5.0) g/dL 01/08/24 01/08/24 01/08/24 Range/Units 02:24 02:24 06:07 RBC 2.96 L (3.80-5.40) m/uL Hgb 7.7 L (11.4-16.0) gm/dL Hct 27.7 L (34.0-46.0) % MCHC 27.9 L (31.0-37.0) g/dL RDW 18.2 H (11.5-15.5) % Lymphocytes # 0.4 L (1.0-4.8) k/uL Sodium 132 L (137-145) mmol/L Chloride (98-107) mmol/L BUN 20 H (7-17) mg/dL Creatinine 2.39 H (0.52-1.04) mg/dL Glucose 150 H (74-99) mg/dL POC Glucose (mg/dL) 154 H (70-110) mg/dL Alkaline Phosphatase 208 H (38-126) U/L Albumin 3.3 L (3.5-5.0) g/dL 01/08/24 01/08/24 Range/Units 07:50 07:50 RBC 2.96 L (3.80-5.40) m/uL Hgb 8.1 L (11.4-16.0) gm/dL Hct 27.7 L (34.0-46.0) % MCHC 29.0 L (31.0-37.0) g/dL RDW 18.2 H (11.5-15.5) % Lymphocytes # (1.0-4.8) k/uL Sodium 126 L (137-145) mmol/L Chloride 93 L (98-107) mmol/L BUN 21 H (7-17) mg/dL Creatinine 2.54 H (0.52-1.04) mg/dL Glucose 137 H (74-99) mg/dL POC Glucose (mg/dL) (70-110) mg/dL Alkaline Phosphatase 204 H (38-126) U/L Albumin 3.4 L (3.5-5.0) g/dL Assessment and Plan Plan: Assessment: 1. Acute kidney injury secondary to ATN secondary to cardiorenal syndrome, sepsis, hemodialysis dependent. Currently has a femoral catheter that was placed January 03, 2024. 2. Status post cardiac arrest. 3. Volume overload. Improved with ultrafiltration. 4. Chronic kidney disease stage IV with baseline creatinine 2-2.5 secondary to cardiorenal syndrome, sepsis. 5. Anemia of chronic kidney disease. On Aranesp. 6. Chronic kidney disease mineral bone disease maintained on PhosLo. Phosphorus level 5.5 dated January 04, 2024. 7. Diabetes mellitus. 8. Recent MRSA infection. On antibiotics. 9. Abdominal pain. Ultrasound showed gallbladder wall thickening. Consider surgery eval. 10. Hypervolemic hyponatremia. Plan: Currently seen while undergoing hemodialysis. Maintain torsemide. Monitor for renal recovery outpatient. Monitor vancomycin levels. Dose to be adjusted for renal function. Avoid morphine. Okay to use Dilaudid if needed. Awaits permacath placement and removal of femoral catheter by vascular surgery. Discussed with RN.
[2024-01-08 11:13] LABS: Glucose,Whole Blood 144 mg/dL (70-110)
[2024-01-08] MEDS: HYDROcodone/APAP 5-325MG 1 EACH TAB PO PRN (13:05)
--- NOTE | 2024-01-08 15:21 | P.PN ---
Subjective Progress Note Date: 01/08/24 Principal diagnosis: Cardiac arrest 58-year-old female patient, multiple medical problems including end-stage renal disease was on hemodialysis also known to have coronary artery disease with previous PCI and stenting of the RCA and known history of ischemic cardiomyopathy comes into the emergency department after losing her hemodialysis catheter. Apparently, her last hemodialysis session was on 01/02/2024. Based on that, the patient came in to ED and the patient was taken to [facility] for insertion of a new hemodialysis catheter. While in [facility], the patient was given fentanyl and during the procedure, the patient became pulseless. Details are not available. It was noted that the patient was in a PEA rhythm. The patient was given CPR, 2 rounds of epi, intubated and there was return of spontaneous circulation. Following that, the patient was kept intubated and she was transferred to the intensive care unit for further care. At this point in time, the patient is sedated on propofol and she is hemodynamically stable on no pressors. Her current vent setting includes AC of 14, tidal volume of 400, FiO2 100% and PEEP of 5. Patient was given a blood gas that showed a pH of 7.37 with a pCO2 of 49 and a pO2 of 63. Sodium is at 133, potassium is at 4.6, bicarb is 26 with a BUN of 47 and a creatinine of 3.58. LFTs showed alkaline phosphatase of 203. UA showing +2 protein, many WBCs, many bacteria, 49 RBCs, and the white cell count of 5.6 with a hemoglobin 8.2 and a platelet count of 228. Initial chest x-ray was within normal limits. Subsequent chest x-ray postintubation showed pulmonary edema. On a separate note, the patient was hospitalized in early November for sepsis. At that time, the blood culture was positive for MRSA and the patient was treated with vancomycin. She required removal of previously inserted dialysis catheter and she completed a total of 4 weeks course of IV antibiotics with daptomycin. Most recent blood cultures have been negative. On 01/04/2024, the patient remains intubated on mechanical ventilator. This morning, the patient on a propofol running at 45 mcg/kg/min. She remains intubated on the mechanical ventilator. Assist-control mode with rate of 14, tidal volume of 400, FiO2 50% with a PEEP of 5. Chest x-ray shows pulmonary edema. Blood gas shows a pH of 7.46 with a pCO2 of 39 and pO2 of 68. Cardiac rhythm is sinus. She is afebrile and hemodynamically stable. White cell count is 6.4 with a hemoglobin 7.2 and a platelet count of 200. Sodium levels at 132, BUN 52 with a creatinine of 3.4 and a potassium levels of 4.2. Remains on Zosyn and vancomycin. Blood cultures have been sent and results are still pending. Echocardiogram was also ordered. Doppler of the neck area revealed nonocclusive band of filling defect in the internal jugular vein that is thought to be representing a thrombus. This is corroborated to the previous catheter insertion. She remains on aspirin and Plavix. She remains on IV Zosyn and vancomycin for now. Urine output is minimal and Lasix will be discontinued. She is on no pressors for now. 01/05/2024, the patient is being seen for a follow-up. The patient remains intubated on mechanical ventilator. The patient underwent hemodialysis yesterday a total of 3 L of fluid and ultrafiltration was done. This morning's chest x-ray still showing to some residual pulmonary edema. The patient remains sedated on propofol which is running at 40 mcg/kg/min. She is on a mechanical ventilator on assist-control mode with rate of 14, tidal volume of 400, FiO2 of 40% with a PEEP of 5. Blood gas showed a pH of 7.44 with pCO2 44 and pO2 of 126. Minimal urine output at this point in time. Hemodynamically stable. Afebrile. Remains NPO. Home medications will be resumed. In addition, the patient is covered with IV Zosyn and vancomycin pending further cultures. The urine culture is positive for gram-negative bacillus at this point in time. Patient was seen today on 01/06/2024, patient remains in the ICU, she was extubated yesterday at 5 PM on 01/05/2024. Apparently the patient coded for about 4 minutes at the time she was brought into the ICU and she was having a left IJ catheter placement. The cath was basically for dialysis, and now she has a right femoral catheter. Patient is being treated for urinary tract infection secondary to Enterobacter, she is receiving Zosyn, patient seems to be doing well today, seems to be a bit slow, but overall she is doing well and she is on 2 L nasal cannula hemodynamically stable, not in any distress. WBC count is 4.6, hemoglobin 7.4 basic metabolic profile is normal BUN is 27 creatinine 2.14. Chest x-ray this morning showed mild interstitial pulmonary edema with small left pleural effusion and atelectasis Patient was evaluated today on 01/07/2024, patient is doing well, she was transferred yesterday out of the ICU, and now she is on 3 S. Patient is doing great, relatively asymptomatic, no active pulmonary symptoms, patient is being followed by nephrology and still undergoing hemodialysis. WBC count is 4.2 hemoglobin 7.6 electrolytes are normal BUN is 14 creatinine 1.84 chest x-ray yesterday showed some mild interstitial edema and small left pleural effusion with atelectasis. Patient was evaluated today on 01/08/2024, patient is doing well, receiving hemodialysis earlier this morning, she is on room air, she has some vague aches and pains. But overall seems to be doing well. WBC count is 6.1 hemoglobin 8.1 sodium is low at 126 BUN is 21 creatinine 2.54, that being addressed by nephrol fidel. Objective - Vital Signs Vital signs: Vital Signs Temp 97.3 F L 01/08/24 11:28 Pulse 74 01/08/24 11:28 Resp 18 01/08/24 11:28 BP 120/72 01/08/24 11:28 Pulse Ox 99 01/08/24 11:28 FiO2 40 01/05/24 17:00 Intake & Output 01/07/24 01/08/24 01/08/24 18:59 06:59 18:59 Intake Total 240 120 Output Total 50 Balance 240 70 Weight 52.5 kg Intake: Oral 240 120 Output: Urine 50 Other: Voiding Method Indwelling Catheter Indwelling Catheter Bedpan # Voids 1 # Bowel Movements 1 1 - Exam General: 58-year-old female on room air, not in any distress Head exam was generally normal. There was no scleral icterus or corneal arcus. Mucous membranes were moist. HEENT: Head is atraumatic, normocephalic, pupils were equal round , sclera nonicteric, conjunctivae were pale, moist mucous membranes. Neck: Supple, negative JVd, normal carotid upstroke bilaterally, no lymphadenopathy. Chest: Symmetrical chest expansion, diminished breath sounds at the bases no crackles rhonchi or wheezes Heart: Normal S1-S2, 2/6 systolic murmur throughout the left lower sternal border Abdomen: Soft, nontender, no megaly no rebound no guarding. Bowel sounds. Extremities: Plus bipedal edema Neurologic examination: Alert and oriented x 3 no gross focal deficit Examination of the skin revealed no rashes. - Labs CBC & Chem 7: 01/08/24 07:50 01/08/24 07:50 Labs: Abnormal Lab Results - Last 24 Hours (Table) 01/07/24 01/07/24 01/08/24 Range/Units 16:19 19:56 01:18 RBC (3.80-5.40) m/uL Hgb (11.4-16.0) gm/dL Hct (34.0-46.0) % MCHC (31.0-37.0) g/dL RDW (11.5-15.5) % Lymphocytes # (1.0-4.8) k/uL Sodium (137-145) mmol/L Chloride (98-107) mmol/L BUN (7-17) mg/dL Creatinine (0.52-1.04) mg/dL Glucose (74-99) mg/dL POC Glucose (mg/dL) 213 H 131 H 159 H (70-110) mg/dL Alkaline Phosphatase (38-126) U/L Albumin (3.5-5.0) g/dL 01/08/24 01/08/24 01/08/24 Range/Units 02:24 02:24 06:07 RBC 2.96 L (3.80-5.40) m/uL Hgb 7.7 L (11.4-16.0) gm/dL Hct 27.7 L (34.0-46.0) % MCHC 27.9 L (31.0-37.0) g/dL RDW 18.2 H (11.5-15.5) % Lymphocytes # 0.4 L (1.0-4.8) k/uL Sodium 132 L (137-145) mmol/L Chloride (98-107) mmol/L BUN 20 H (7-17) mg/dL Creatinine 2.39 H (0.52-1.04) mg/dL Glucose 150 H (74-99) mg/dL POC Glucose (mg/dL) 154 H (70-110) mg/dL Alkaline Phosphatase 208 H (38-126) U/L Albumin 3.3 L (3.5-5.0) g/dL 01/08/24 01/08/24 01/08/24 Range/Units 07:50 07:50 11:11 RBC 2.96 L (3.80-5.40) m/uL Hgb 8.1 L (11.4-16.0) gm/dL Hct 27.7 L (34.0-46.0) % MCHC 29.0 L (31.0-37.0) g/dL RDW 18.2 H (11.5-15.5) % Lymphocytes # (1.0-4.8) k/uL Sodium 126 L (137-145) mmol/L Chloride 93 L (98-107) mmol/L BUN 21 H (7-17) mg/dL Creatinine 2.54 H (0.52-1.04) mg/dL Glucose 137 H (74-99) mg/dL POC Glucose (mg/dL) 144 H (70-110) mg/dL Alkaline Phosphatase 204 H (38-126) U/L Albumin 3.4 L (3.5-5.0) g/dL Assessment and Plan Assessment: Impression: Acute PEA cardiac arrest, required brief CPR, intubation mechanical ventilation. End-stage disease on hemodialysis MRSA septicemia, treated with subsequent clearing of the blood cultures in early November 2023 Acute hypoxic respiratory failure secondary to above. Resolved was extubated on 01/05/2024 Congestion heart failure with preserved LV function Diabetes mellitus type 2 COPD Coronary artery disease with previous PCI and stenting of RCA Previous episodes of cardiac arrest back in July 2023 Hypertension Hyperlipidemia Chronic wounds in lower extremities involving the 1 in the right healed History of rectal prolapse Recommendation: Continue hemodialysis Continue present supportive care measures Continue antibiotics as per infectious disease on the case Continue aspirin Plavix Continue bronchodilators Will continue to follow Time with Patient: Less than 30
--- NOTE | 2024-01-08 15:21 | P.GSCN ---
History of Present Illness Consult date: 01/08/24 History of present illness: CHIEF COMPLAINT: Cardiac arrest HISTORY OF PRESENT ILLNESS: This is a 58-year-old female with history of end- stage renal disease. She presented to the hospital after PEA cardiac arrest while she was in the [facility] for new hemodialysis catheter. Patient did require to be intubated during this admission. She is now currently on the cardiac floor. Patient apparently started having right upper quadrant abdominal pain yesterday around 1 AM. The pain is intermittent. She denies any nausea or vomiting. The pain is not worse with eating. They initially did an abdominal x-ray no free air no evidence of bowel obstruction. And then abdominal ultrasound completed and reported gallbladder wall thickening, sludge and possible trace pericholecystic fluid. And to correlate for any suspected acute on chronic cholecystitis. Patient's white count is normal. She is afebrile. She is on Plavix due to recent coronary disease with stent in May 2023. Patient has had prior history of cardiac arrests. Patient denies any prior abdominal surgeries. Patient does report having loose stools. PAST MEDICAL HISTORY: Diabetes Mellitus, Hyperlipidemia, Hypertension, Renal Disease, chronic rectal prolapse, chronic kidney disease on hemodialysis, ischemic cardiomyopathy, severe pulmonary hypertension, COPD, anemia PAST SURGICAL HISTORY: See below MEDICATIONS: See below ALLERGIES: See below SOCIAL HISTORY: No illicit drug use. REVIEW OF SYSTEMS: CONSTITUTIONAL: Denies fever or chills. HEENT: Denies blurred vision, vision changes, or eye pain. Denies hemoptysis CARDIOVASCULAR: Denies chest pain or pressure. RESPIRATORY: No shortness of breath. GASTROINTESTINAL: See HPI for pertinent findings HEMATOLOGIC: Denies bleeding disorders. GENITOURINARY: Denies any blood in urine or increased urinary frequency. SKIN: Denies pruitis. Denies rash. PHYSICAL EXAM: VITAL SIGNS: Reviewed GENERAL: Well-developed in no acute distress. HEENT: No sclera icterus. Extraocular movements grossly intact. Moist buccal mucosa. Head is atraumatic, normocephalic. No nasal drainage. ABDOMEN: Soft. Nondistended. Tenderness with palpation of right upper quadrant NEUROLOGIC: Alert and oriented. Cranial nerves II through XII grossly intact. LABORATORY DATA: WBC 6.1 Hgb 8.1 platelets 249 Sodium is 126 potassium is 4.3 creatinine 2.54 Total bilirubin 0.8 AST 28 ALT 10 alk phos 204 IMAGING: Abdominal x-ray and ultrasound as stated above ASSESSMENT: 1. Right upper quadrant abdominal pain with ultrasound reporting gallbladder wall thickening, sludge and trace pericholecystic fluid 2. Acute PEA cardiac arrest on admission 3. History of coronary artery disease and cardiac stent in May PLAN: -Further recommendations forthcoming per surgeon -Continue supportive care -Add low-fat diet Physician Sales And Marketing Agent note has been reviewed by physician. Signing provider agrees with the documented findings, assessment, and plan of care. Past Medical History Past Medical History: Diabetes Mellitus, Hyperlipidemia, Hypertension, Renal Disease Additional Past Medical History / Comment(s): restless leg, neurothopy, Guillain-[place], dialysis Last Myocardial Infarction Date:: 2023 History of Any Multi-Drug Resistant Organisms: MRSA Year Discovered:: 11/28/23 MDRO Source:: blood Past Surgical History: Orthopedic Surgery, Tonsillectomy Additional Past Surgical History / Comment(s): "plate in left leg to straighten leg as a child" - plate removed, right total hip replacement due to a fracture from a fall, dialysis Past Anesthesia/Blood Transfusion Reactions: No Reported Reaction Past Psychological History: No Psychological Hx Reported Smoking Status: Former smoker Past Alcohol Use History: None Reported Past Drug Use History: None Reported - Past Family History Mother History Unknown: Yes Additional Family Medical History / Comment(s): pt sedated on vent Medications and Allergies Home Medications Medication Instructions Recorded Confirmed Type Ipratropium-Albuterol Nebulize 3 ml INHALATION RT-Q6H PRN 10/09/23 01/03/24 History [Duoneb 0.5 mg-3 mg/3 ml Soln] Multivitamins, Thera [Multivitamin 1 tab PO DAILY@79910/09/23 01/03/24 History (formulary)] Calcium Acetate [PhosLo] 667 mg PO TID-W/MEALS tab 10/21/23 01/03/24 Rx Insulin Lispro [humaLOG Kwikpen] See Protocol SQ AC-TID@08,12,16 11/21/23 01/03/24 History Levothyroxine Sodium [Synthroid] 75 mcg PO DAILY@0600 11/21/23 01/03/24 History ALPRAZolam [Xanax] 0.25 mg PO MOWEFR@0500 01/03/24 01/03/24 History Aspirin 81 mg PO DAILY@0800 09/06/24 09/06/24 History Atorvastatin [Lipitor] 40 mg PO HS@199901/03/24 01/03/24 History Clopidogrel [Plavix] 75 mg PO DAILY@99901/03/24 01/03/24 History Docusate [Colace] 100 mg PO BID@0800,199901/03/24 01/03/24 History Folic Acid 1 mg PO DAILY@79901/03/24 01/03/24 History Furosemide [Lasix] 80 mg PO TID@0600,1400,199901/03/24 01/03/24 History Gabapentin [Neurontin] 100 mg PO BID@0500,1700 01/03/24 01/03/24 History HYDROcodone/APAP 7.5-325MG [[place] 1 tab PO Q6H PRN 01/03/24 01/03/24 History 7.5-325] Melatonin 5 mg PO HS@199901/03/24 01/03/24 History Midodrine [ProAmatine] 5 mg PO BID@0800,1600 PRN 01/03/24 01/03/24 History Pantoprazole [Protonix] 40 mg PO DAILY@0801/03/24 01/03/24 History Thiamine [Vitamin B-1] 100 mg PO DAILY@79901/03/24 01/03/24 History hydrALAZINE HCL [Apresoline] 25 mg PO BID@08,199901/03/24 01/03/24 History rOPINIRole HCL [Requip] 2 mg PO HS@199901/03/24 01/03/24 History Allergies Allergy/AdvReac Type Severity Reaction Status Date / Time No Known Allergies Allergy Verified 01/03/24 10:58 Surgical - Exam Vital Signs Temp Pulse Resp BP Pulse Ox 97.4 F L 71 16 113/69 100 01/03/24 08:47 01/03/24 08:47 01/03/24 08:47 01/03/24 08:47 01/03/24 08:47 Results - Labs 01/08/24 07:50 01/08/24 07:50 Abnormal Lab Results - Last 24 Hours (Table) 01/07/24 01/07/24 01/08/24 Range/Units 16:19 19:56 01:18 RBC (3.80-5.40) m/uL Hgb (11.4-16.0) gm/dL Hct (34.0-46.0) % MCHC (31.0-37.0) g/dL RDW (11.5-15.5) % Lymphocytes # (1.0-4.8) k/uL Sodium (137-145) mmol/L Chloride (98-107) mmol/L BUN (7-17) mg/dL Creatinine (0.52-1.04) mg/dL Glucose (74-99) mg/dL POC Glucose (mg/dL) 213 H 131 H 159 H (70-110) mg/dL Alkaline Phosphatase (38-126) U/L Albumin (3.5-5.0) g/dL 01/08/24 01/08/24 01/08/24 Range/Units 02:24 02:24 06:07 RBC 2.96 L (3.80-5.40) m/uL Hgb 7.7 L (11.4-16.0) gm/dL Hct 27.7 L (34.0-46.0) % MCHC 27.9 L (31.0-37.0) g/dL RDW 18.2 H (11.5-15.5) % Lymphocytes # 0.4 L (1.0-4.8) k/uL Sodium 132 L (137-145) mmol/L Chloride (98-107) mmol/L BUN 20 H (7-17) mg/dL Creatinine 2.39 H (0.52-1.04) mg/dL Glucose 150 H (74-99) mg/dL POC Glucose (mg/dL) 154 H (70-110) mg/dL Alkaline Phosphatase 208 H (38-126) U/L Albumin 3.3 L (3.5-5.0) g/dL 01/08/24 01/08/24 01/08/24 Range/Units 07:50 07:50 11:11 RBC 2.96 L (3.80-5.40) m/uL Hgb 8.1 L (11.4-16.0) gm/dL Hct 27.7 L (34.0-46.0) % MCHC 29.0 L (31.0-37.0) g/dL RDW 18.2 H (11.5-15.5) % Lymphocytes # (1.0-4.8) k/uL Sodium 126 L (137-145) mmol/L Chloride 93 L (98-107) mmol/L BUN 21 H (7-17) mg/dL Creatinine 2.54 H (0.52-1.04) mg/dL Glucose 137 H (74-99) mg/dL POC Glucose (mg/dL) 144 H (70-110) mg/dL Alkaline Phosphatase 204 H (38-126) U/L Albumin 3.4 L (3.5-5.0) g/dL Diabetes panel 01/08/24 01/08/24 Range/Units 02:24 07:50 Sodium 132 L 126 L (137-145) mmol/L Potassium 4.4 4.3 (3.5-5.1) mmol/L Chloride 99 93 L (98-107) mmol/L Carbon Dioxide 24 25 (22-30) mmol/L BUN 20 H 21 H (7-17) mg/dL Creatinine 2.39 H 2.54 H (0.52-1.04) mg/dL Glucose 150 H 137 H (74-99) mg/dL Calcium 8.5 8.8 (8.4-10.2) mg/dL AST 31 28 (14-36) U/L ALT 10 10 (4-34) U/L Alkaline Phosphatase 208 H 204 H (38-126) U/L Total Protein 7.3 7.5 (6.3-8.2) g/dL Albumin 3.3 L 3.4 L (3.5-5.0) g/dL Calcium panel 01/08/24 01/08/24 Range/Units 02:24 07:50 Calcium 8.5 8.8 (8.4-10.2) mg/dL Albumin 3.3 L 3.4 L (3.5-5.0) g/dL Pituitary panel 01/08/24 01/08/24 Range/Units 02:24 07:50 Sodium 132 L 126 L (137-145) mmol/L Potassium 4.4 4.3 (3.5-5.1) mmol/L Chloride 99 93 L (98-107) mmol/L Carbon Dioxide 24 25 (22-30) mmol/L BUN 20 H 21 H (7-17) mg/dL Creatinine 2.39 H 2.54 H (0.52-1.04) mg/dL Glucose 150 H 137 H (74-99) mg/dL Calcium 8.5 8.8 (8.4-10.2) mg/dL Adrenal panel 01/08/24 01/08/24 Range/Units 02:24 07:50 Sodium 132 L 126 L (137-145) mmol/L Potassium 4.4 4.3 (3.5-5.1) mmol/L Chloride 99 93 L (98-107) mmol/L Carbon Dioxide 24 25 (22-30) mmol/L BUN 20 H 21 H (7-17) mg/dL Creatinine 2.39 H 2.54 H (0.52-1.04) mg/dL Glucose 150 H 137 H (74-99) mg/dL Calcium 8.5 8.8 (8.4-10.2) mg/dL Total Bilirubin 0.9 0.8 (0.2-1.3) mg/dL AST 31 28 (14-36) U/L ALT 10 10 (4-34) U/L Alkaline Phosphatase 208 H 204 H (38-126) U/L Total Protein 7.3 7.5 (6.3-8.2) g/dL Albumin 3.3 L 3.4 L (3.5-5.0) g/dL
[2024-01-08 16:18] LABS: Glucose,Whole Blood 162 mg/dL (70-110)
[2024-01-08 20:12] LABS: Glucose,Whole Blood 134 mg/dL (70-110)
[2024-01-09 04:53] LABS: Anisocytosis Slight; HCT 26.5 % (34.0-46.0); HGB 7.5 gm/dL (11.4-16.0); Hypochromasia Marked; MCH 26.4 pg (25.0-35.0); MCHC 28.4 g/dL (31.0-37.0); MCV 92.9 fL (80.0-100.0); Platelet Count 227 k/uL (150-450); Poikilocytosis Slight; RBC 2.85 m/uL (3.80-5.40); RDW 17.9 % (11.5-15.5); WBC 5.5 k/uL (3.8-10.6)
[2024-01-09 05:09] LABS: ALT 9 U/L (4-34); AST 27 U/L (14-36); African American GFR (CKD) 31 (>60 ml/min/1.73 sqM); Albumin 3.1 g/dL (3.5-5.0); Alkaline Phosphatase 174 U/L (38-126); Anion Gap 7 mmol/L; Blood Urea Nitrogen 14 mg/dL (7-17); Calcium 8.2 mg/dL (8.4-10.2); Carbon Dioxide 28 mmol/L (22-30); Chloride 101 mmol/L (98-107); Glucose 116 mg/dL (74-99); Non-African American GFR(CKD) 27 (>60 ml/min/1.73 sqM); Potassium 4.1 mmol/L (3.5-5.1); Sodium 136 mmol/L (137-145); Total Bilirubin 0.8 mg/dL (0.2-1.3); Total Protein 7.2 g/dL (6.3-8.2)
[2024-01-09 06:00] LABS: Glucose,Whole Blood 103 mg/dL (70-110)
[2024-01-09] MEDS ORDERED: LIDOCAINE 1% INJ 10MG/ML (20 ML MDV) ONE ×2 (07:20→07:46)
[2024-01-09] MEDS ORDERED: HEPARIN SODIUM 1,000 UN/ML (10ML VL) ONE (07:20)
[2024-01-09] MEDS: IV FLUID CONTINUATION 1,000 ML IV ONE (07:23)
[2024-01-09] MEDS: LIDOCAINE 1% INJ 10MG/ML (20 ML MDV) SQ ONE (07:44)
[2024-01-09] MEDS: HEPARIN SODIUM 1,000 UN/ML (10ML VL) MISCELLANE ONE (08:18)
[2024-01-09] MEDS: IOPAMIDOL-370 100ML BTL INJ ONE (08:18)
--- NOTE | 2024-01-09 09:22 | OP ---
OPERATIVE REPORT DATE OF SERVICE : PREOPERATIVE DIAGNOSIS: Acute chronic renal failure. POSTOPERATIVE DIAGNOSIS: Acute chronic renal failure. PROCEDURES PERFORMED: 1. Ultrasound-guided 90-cm dialysis catheter placed in right jugular approach. 2. Removal of right femoral dialysis catheter. DESCRIPTION OF PROCEDURE: The patient was brought to the label press operator. The neck and chest were prepped and drapes applied in a sterile manner. Ultrasound-guided micropuncture into the right jugular vein, micropuncture guidewire was passed. After that, we placed a 4-Japanese sheath. This patient had a history of clot in the right IJ. Ultrasound shows no evidence further clot seen. We took the superior vena cavogram. The jugular vein was open, superior vena cava was open. After that we created a tunnel. Through the tunnel, we brought 19 cm dialysis catheter, dilator went on top of the guidewire. Then, sheath was drawn on top of the guidewire. Through the sheath, we placed dialysis catheter. Tip of the catheter in superior vena cavoatrial junction, flushed with heparin saline and hep-locked, secured with 3-0 nylon, dressing applied. The patient tolerated the procedure well. The right groin was prepped and right upper dialysis catheter removed. Pressure was held. The patient tolerated the procedure well. MMODL / IJN: [id number] /
--- NOTE | 2024-01-09 09:24 | IR ---
EXAMINATION TYPE: IR cvc insert central tunneled DATE OF EXAM: 01/09/2024 FLUOROSCOPY Dialyisis, 4.4m/[id number], Rt IJ 14.5F x 19cm cath 212 images submitted.
--- NOTE | 2024-01-09 10:47 | P.PN ---
Subjective Patient is seen in follow-up for acute kidney injury, hemodialysis dependent. No problems with dialysis yesterday. On nasal cannula. Hemodynamically stable. No active complaints today. Vital signs are stable. General: No acute distress. HEENT: On nasal cannula. LUNGS: No audible rhonchi or wheezes. HEART: Rate and Rhythm are regular. ABDOMEN: No distention. EXTREMITITES: 1+ edema. Objective - Vital Signs Vital signs: Vital Signs Temp 97.9 F 01/09/24 04:00 Pulse 75 01/09/24 04:00 Resp 18 01/09/24 04:00 BP 122/74 01/09/24 04:00 Pulse Ox 99 01/09/24 04:00 FiO2 40 01/05/24 17:00 Intake & Output 01/08/24 01/09/24 01/09/24 18:59 06:59 18:59 Intake Total 990 50 Output Total 6500 250 Balance -5510 -250 50 Weight 55.6 kg Intake: IV 80 50 0.9 80 Intake, IV Titration 100 Amount Piperacillin-Tazobactam 3 100 .375 gm In Sodium Chloride 0.9% 100 ml @ 25 mls/hr IVPB Q12HR [facility] Rx #:[id number] Oral 360 Hemodialysis 450 Output: Urine 50 250 Hemodialysis 3450 Hemodialysis Net Amount 3000 Other: Voiding Method Bedpan # Voids 1 - Labs CBC & Chem 7: 01/09/24 04:15 01/09/24 04:15 Labs: Abnormal Lab Results - Last 24 Hours (Table) 01/08/24 01/08/24 01/08/24 Range/Units 11:11 16:15 20:10 RBC (3.80-5.40) m/uL Hgb (11.4-16.0) gm/dL Hct (34.0-46.0) % MCHC (31.0-37.0) g/dL RDW (11.5-15.5) % Sodium (137-145) mmol/L Creatinine (0.52-1.04) mg/dL Glucose (74-99) mg/dL POC Glucose (mg/dL) 144 H 162 H 134 H (70-110) mg/dL Calcium (8.4-10.2) mg/dL Alkaline Phosphatase (38-126) U/L Albumin (3.5-5.0) g/dL 01/09/24 01/09/24 Range/Units 04:15 04:15 RBC 2.85 L (3.80-5.40) m/uL Hgb 7.5 L (11.4-16.0) gm/dL Hct 26.5 L (34.0-46.0) % MCHC 28.4 L (31.0-37.0) g/dL RDW 17.9 H (11.5-15.5) % Sodium 136 L (137-145) mmol/L Creatinine 1.98 H (0.52-1.04) mg/dL Glucose 116 H (74-99) mg/dL POC Glucose (mg/dL) (70-110) mg/dL Calcium 8.2 L (8.4-10.2) mg/dL Alkaline Phosphatase 174 H (38-126) U/L Albumin 3.1 L (3.5-5.0) g/dL Microbiology - Last 24 Hours (Table) 01/03/24 15:56 Blood Culture - Final Blood Assessment and Plan Plan: Assessment: 1. Acute kidney injury secondary to ATN secondary to cardiorenal syndrome, sepsis, hemodialysis dependent. Permacath placed this morning and femoral catheter removed. 2. Status post cardiac arrest. 3. Volume overload. Improved with ultrafiltration. 4. Chronic kidney disease stage IV with baseline creatinine 2-2.5 secondary to cardiorenal syndrome, sepsis. 5. Anemia of chronic kidney disease. On Aranesp. 6. Chronic kidney disease mineral bone disease maintained on PhosLo. Phosphorus level 5.5 dated January 04, 2024. 7. Diabetes mellitus. 8. Recent MRSA infection. On antibiotics. 9. Abdominal pain. Ultrasound showed gallbladder wall thickening. Surgery following. 10. Hypervolemic hyponatremia. Improved postdialysis. Plan: Hemodialysis tomorrow. Maintain torsemide. Monitor for renal recovery outpatient. Monitor vancomycin levels. Dose to be adjusted for renal function. Avoid morphine. Okay to use Dilaudid if needed. Consult ID for antibiotics management.
[2024-01-09 11:35] LABS: Glucose,Whole Blood 155 mg/dL (70-110)
--- NOTE | 2024-01-09 13:31 | P.CRDCN ---
History of Present Illness Consult date: 01/09/24 Reason for Consult (text): Preop clearance History of present illness: This is a 58-year-old female patient of Dr. Jose with past medical history of coronary artery disease status post stent, ischemic cardiomyopathy with EF of 40%, chronic kidney disease stage IV on HD is converted to end-stage renal disease, anemia of chronic disease, hypertension, hyperlipidemia, severe pulmonary hypertension, COPD, tobacco use and quit in March 2023, diabetes mellitus type 2, history of osteomyelitis left foot, chronic hypoxic respiratory failure on home O2 at 3 L. Patient also has a history of bradycardic cardiac arrest and anoxic encephalopathy in July 2023 eventually stabilized and discharged to nursing facility. We have been asked to evaluate the patient for preop clearance. Patient presented to the hospital on 01/02 as her dialysis cath eter was dislodged came into the emergency center and went to the [facility] for replacement of the left internal jugular catheter but the patient was agitated and had an episode of PEA status post 2 syringes of epinephrine, intubated in the [facility] and admitted to the intensive care unit. Patient was successfully extubated and transferred to the cardiac stepdown unit. She has been maintained on IV antibiotics for possible aspiration and followed by infectious disease. She then developed abdominal pain for which ultrasound revealed concern for cholecystitis and patient was seen by Dr. Marlow with plan for cholecystectomy. At the time of this evaluation, patient denies having any abdominal pain which has completely resolved from yesterday. Blood pressure 122/74, heart rate 75, afebrile, pulse ox 99% on 3 L nasal cannula. Chest x-ray: 01/05 similar mild interstitial pulmonary edema. Small left pleural effusion with adjacent atelectasis and/or consolidation. Laboratory studies: WBC 5.5, hemoglobin 7.5, platelet count 227. Creatinine 1.98, potassium 4.1. Home cardiac medications: Right and left heart cath 06/07/2023 and underwent PCI of the proximal RCA with known residual disease in the proximal left circumflex to 50%, 80% diffuse in the diagonal 1 which is a small vessel and is jailed not amenable for intervention. Proximal LAD had a prior stent starting from the ostium to the mid segment which appeared to be patent. Echocardiogram performed on 01/04/2024 reveals EF of 55 to 60%, large pleural effusion. Review Of Systems: At the time of my exam: CONSTITUTIONAL: Denies fever or chills. HEENT: Denies blurred vision, vision changes, or eye pain. Denies hemoptysis CARDIOVASCULAR: Denies chest pain. Denies orthopnea. Denies PND. Denies palpitations RESPIRATORY: Denies shortness of breath. GASTROINTESTINAL: Denies abdominal pain. Denies nausea or vomiting. HEMATOLOGIC: Denies bleeding disorders. GENITOURINARY: Denies any blood in urine. SKIN: Denies puritis. Denies rash. Physical examination: Gen: This is a 58-year-old female appears to be in no acute distress VS: reviewed HEENT: Head is atraumatic, normocephalic. Pupils equal, round. Sclerae is anicteric. NECK: Supple. No JVD. LUNGS: Clear to auscultation. No wheezes or rhonchi. No intercostal retraction s. HEART: Regular rate and rhythm. No murmur. ABDOMEN: Soft No tenderness. EXTREMITIES: No pedal edema. No calf tenderness. NEUROLOGICAL: Patient is awake, alert and oriented x3. Assessment: History of coronary artery disease with stenting in the RCA most recently in May 2023 and also previous stent in the LAD, known disease of the left circumflex and diagonal 1 Ischemic cardiomyopathy with previous EF of 40% End-stage renal disease on HD Anemia of chronic disease Diabetes mellitus type 2 Hypertension Dyslipidemia Severe pulmonary hypertension COPD History of tobacco use and dependence Plan: Continue patient's home cardiac medications At this time, if gallbladder surgery is not urgent because she is at high risk, would postpone until patient has completed 1 year of dual antiplatelet therapy Further recommendations to follow based upon clinical course Thank you kindly for this consultation. Nurse practitioner note has been reviewed, I agree with documented findings and plan of care. Patient was seen and examined. Past Medical History Past Medical History: Diabetes Mellitus, Hyperlipidemia, Hypertension, Renal Disease Additional Past Medical History / Comment(s): restless leg, neurothopy, Guillain-[place], dialysis Last Myocardial Infarction Date:: 2023 History of Any Multi-Drug Resistant Organisms: MRSA Date of last positivie culture/infection: 11/28/23 MDRO Source:: blood Past Surgical History: Orthopedic Surgery, Tonsillectomy Additional Past Surgical History / Comment(s): "plate in left leg to straighten leg as a child" - plate removed, right total hip replacement due to a fracture from a fall, dialysis Past Anesthesia/Blood Transfusion Reactions: No Reported Reaction Past Psychological History: No Psychological Hx Reported Smoking Status: Former smoker Past Alcohol Use History: None Reported Past Drug Use History: None Reported - Past Family History Mother History Unknown: Yes Additional Family Medical History / Comment(s): pt sedated on vent Medications and Allergies Home Medications Medication Instructions Recorded Confirmed Type Ipratropium-Albuterol Nebulize 3 ml INHALATION RT-Q6H PRN 10/09/23 01/03/24 History [Duoneb 0.5 mg-3 mg/3 ml Soln] Multivitamins, Thera [Multivitamin 1 tab PO DAILY@0810/09/23 01/03/24 History (formulary)] Calcium Acetate [PhosLo] 667 mg PO TID-W/MEALS tab 10/21/23 01/03/24 Rx Insulin Lispro [humaLOG Kwikpen] See Protocol SQ AC-TID@08,12,16 11/21/23 01/03/24 History Levothyroxine Sodium [Synthroid] 75 mcg PO DAILY@0611/21/23 01/03/24 History ALPRAZolam [Xanax] 0.25 mg PO MOWEFR@0500 01/03/24 01/03/24 History Aspirin 81 mg PO DAILY@79901/03/24 01/03/24 History Atorvastatin [Lipitor] 40 mg PO HS@199901/03/24 01/03/24 History Clopidogrel [Plavix] 75 mg PO DAILY@1000 01/03/24 01/03/24 History Docusate [Colace] 100 mg PO BID@0800,199901/03/24 01/03/24 History Folic Acid 1 mg PO DAILY@0801/03/24 01/03/24 History Furosemide [Lasix] 80 mg PO TID@0600,1400,199901/03/24 01/03/24 History Gabapentin [Neurontin] 100 mg PO BID@0500,1700 01/03/24 01/03/24 History HYDROcodone/APAP 7.5-325MG [Pillow 1 tab PO Q6H PRN 01/03/24 01/03/24 History 7.5-325] Melatonin 5 mg PO HS@199901/03/24 01/03/24 History Midodrine [ProAmatine] 5 mg PO BID@0800,1600 PRN 01/03/24 01/03/24 History Pantoprazole [Protonix] 40 mg PO DAILY@79901/03/24 01/03/24 History Thiamine [Vitamin B-1] 100 mg PO DAILY@79901/03/24 01/03/24 History hydrALAZINE HCL [Apresoline] 25 mg PO BID@799,199901/03/24 01/03/24 History rOPINIRole HCL [Requip] 2 mg PO HS@199901/03/24 01/03/24 History Allergies Allergy/AdvReac Type Severity Reaction Status Date / Time No Known Allergies Allergy Verified 01/03/24 10:58 Physical Exam Vitals: Vital Signs Temp Pulse Resp BP Pulse Ox 01/09/24 07:00 97.5 F L 18 122/74 99 01/09/24 04:00 97.9 F 75 18 122/74 99 01/09/24 00:00 70 18 118/75 98 01/08/24 16:33 97.5 F L 74 20 119/66 100 01/08/24 15:32 97.4 F L 78 18 129/74 Intake and Output 01/08/24 01/09/24 01/09/24 22:59 06:59 14:59 Intake Total 870 50 Output Total 6450 250 Balance -5580 -250 50 Intake: IV 80 50 0.9 80 Intake, IV Titration 100 Amount Piperacillin-Tazobactam 3 100 .375 gm In Sodium Chloride 0.9% 100 ml @ 25 mls/hr IVPB Q12HR [facility] Rx #:[id number] Oral 240 Hemodialysis 450 Output: Urine 250 Hemodialysis 3450 Hemodialysis Net Amount 3000 Other: Voiding Method Bedside Commode Weight 55.6 kg Results 01/09/24 04:15 01/09/24 04:15 Cardiac Enzymes 01/09/24 Range/Units 04:15 AST 27 (14-36) U/L CBC 01/09/24 Range/Units 04:15 WBC 5.5 (3.8-10.6) k/uL RBC 2.85 L (3.80-5.40) m/uL Hgb 7.5 L (11.4-16.0) gm/dL Hct 26.5 L (34.0-46.0) % Plt Count 227 (150-450) k/uL Comprehensive Metabolic Panel 01/09/24 Range/Units 04:15 Sodium 136 L (137-145) mmol/L Potassium 4.1 (3.5-5.1) mmol/L Chloride 101 (98-107) mmol/L Carbon Dioxide 28 (22-30) mmol/L BUN 14 (7-17) mg/dL Creatinine 1.98 H (0.52-1.04) mg/dL Glucose 116 H (74-99) mg/dL Calcium 8.2 L (8.4-10.2) mg/dL AST 27 (14-36) U/L ALT 9 (4-34) U/L Alkaline Phosphatase 174 H (38-126) U/L Total Protein 7.2 (6.3-8.2) g/dL Albumin 3.1 L (3.5-5.0) g/dL Current Medications Generic Name Dose Route Start Last Admin Trade Name Freq PRN Reason Stop Dose Admin Hydrocodone Bitart/Acetaminophen 1 each 01/08/24 12:58 01/08/24 13:05 Hydrocodone/Apap 5-325mg 1 Each Tab PO 1 each Q8HR PRN Administration Pain Albuterol/Ipratropium 3 ml 01/03/24 14:07 Ipratropium-Albuterol 3 Ml Neb INHALATION RT-Q2H PRN Shortness Of Breath Or Wheezing Aspirin 81 mg 01/04/24 08:00 01/09/24 10:02 Aspirin 81 Mg PO 81 mg DAILY@0800 [facility] Administration Atorvastatin Calcium 40 mg 01/03/24 20:00 01/08/24 20:55 Atorvastatin 40 Mg Tab PO 40 mg HS@2000 R[facility]IE Administration Calcium Acetate 667 mg 01/03/24 17:30 01/09/24 12:58 Calcium Acetate 667 Mg Tab PO 667 mg TID-W/MEALS [facility]IE Administration Clopidogrel Bisulfate 75 mg 01/04/24 10:00 01/09/24 10:02 Clopidogrel 75 Mg Tab PO 75 mg DAILY@1000 [facility] Administration Darbepoetin Frantz 40 mcg 01/06/24 09:00 01/06/24 11:04 Darbepoetin Frantz 40 Mcg/0.4 Ml Syringe SQ 40 mcg Q7D [facility] Administration Docusate Sodium 100 mg 01/03/24 20:00 01/09/24 10:02 Docusate 100 Mg Cap PO 100 mg BID@08 [facility] Administration Folic Acid 1 mg 01/04/24 08:00 01/09/24 10:02 Folic Acid 1 Mg Tab PO 1 mg DAILY@0800 R[facility] Administration Gabapentin 100 mg 01/03/24 17:00 01/09/24 05:52 Gabapentin 100 Mg Cap PO Not Given BID@0500,1700 [facility] Heparin Sodium (Porcine) 5,000 unit 01/03/24 21:00 01/09/24 10:01 Heparin Sodium,Porcine 5,000 Unit/Ml 1 Ml Vial SQ 5,000 unit Q12HR [facility] Administration Hydralazine HCl 25 mg 01/03/24 20:00 01/09/24 10:03 Hydralazine Hcl 25 Mg Tab PO 25 mg BID@08,1999 [facility] Administration Piperacillin Sod/Tazobactam 100 mls @ 25 mls/hr 01/06/24 21:00 01/09/24 10:01 Sod 3.375 gm/ Sodium Chloride IVPB 25 mls/hr Q12HR [facility] Administration Protocol Insulin Aspart 0 unit 01/06/24 12:30 01/09/24 12:58 Insulin Aspart (Novolog) 100 Unit/Ml Vial SQ 1 unit ACHS [facility] Administration Protocol Levothyroxine Sodium 75 mcg 01/04/24 06:00 01/09/24 05:52 Levothyroxine 75 Mcg Tab PO Not Given DAILY@0600 [facility] Midodrine 5 mg 01/03/24 16:00 Midodrine 5 Mg Tab PO BID@0800,1600 PRN SBP<110 Miscellaneous Information 0 each 01/03/24 15:59 Vancomycin Iv Per Pharmacy 1 Each Misc MISCELLANE DIRECTED PRN PER PROTOCOL Multivitamins 1 each 01/04/24 08:00 01/09/24 10:02 Multivitamins, Thera 1 Each Tab PO 1 each DAILY@0800 [facility] Administration Naloxone HCl 0.2 mg 01/03/24 14:07 Naloxone 0.4 Mg/Ml 1 Ml Vial IV Q2M PRN Opioid Reversal Pantoprazole Sodium 40 mg 01/03/24 15:45 01/09/24 10:02 Pantoprazole 40 Mg/10 Ml Vial IVP 40 mg DAILY [facility] Administration Petrolatum 1 applic 01/07/24 06:21 01/07/24 06:48 Zinc Oxide Paste (Z-Guard) 1 Applic TOPICAL 1 applic Q2HR PRN Administration Wound Healing Protocol Ropinirole HCl 2 mg 01/07/24 12:30 01/09/24 10:02 Ropinirole Hcl 1 Mg Tab PO 2 mg BID [facility] Administration Thiamine HCl 100 mg 01/04/24 08:00 01/09/24 10:02 Thiamine 100 Mg Tab PO 100 mg DAILY@0800 [facility] Administration Torsemide 40 mg 01/06/24 09:00 01/09/24 10:02 Torsemide 20 Mg Tab PO 40 mg DAILY [facility] Administration Intake and Output 01/08/24 01/09/24 01/09/24 22:59 06:59 14:59 Intake Total 870 50 Output Total 6450 250 Balance -5580 -250 50 Intake: IV 80 50 0.9 80 Intake, IV Titration 100 Amount Piperacillin-Tazobactam 3 100 .375 gm In Sodium Chloride 0.9% 100 ml @ 25 mls/hr IVPB Q12HR [facility] Rx #:[id number] Oral 240 Hemodialysis 450 Output: Urine 250 Hemodialysis 3450 Hemodialysis Net Amount 3000 Other: Voiding Method Bedside Commode Weight 55.6 kg 01/09/24 04:15 01/09/24 04:15
--- NOTE | 2024-01-09 13:50 | P.PN ---
Subjective Progress Note Date: 01/09/24 Principal diagnosis: Cardiac arrest 58-year-old female patient, multiple medical problems including end-stage renal disease was on hemodialysis also known to have coronary artery disease with previous PCI and stenting of the RCA and known history of ischemic cardiomyopathy comes into the emergency department after losing her hemodialysis catheter. Apparently, her last hemodialysis session was on 01/02/2024. Based on that, the patient came in to ED and the patient was taken to [facility] for insertion of a new hemodialysis catheter. While in [facility], the patient was given fentanyl and during the procedure, the patient became pulseless. Details are not available. It was noted that the patient was in a PEA rhythm. The patient was given CPR, 2 rounds of epi, intubated and there was return of spontaneous circulation. Following that, the patient was kept intubated and she was transferred to the intensive care unit for further care. At this point in time, the patient is sedated on propofol and she is hemodynamically stable on no pressors. Her current vent setting includes AC of 14, tidal volume of 400, FiO2 100% and PEEP of 5. Patient was given a blood gas that showed a pH of 7.37 with a pCO2 of 49 and a pO2 of 63. Sodium is at 133, potassium is at 4.6, bicarb is 26 with a BUN of 47 and a creatinine of 3.58. LFTs showed alkaline phosphatase of 203. UA showing +2 protein, many WBCs, many bacteria, 49 RBCs, and the white cell count of 5.6 with a hemoglobin 8.2 and a platelet count of 228. Initial chest x-ray was within normal limits. Subsequent chest x-ray postintubation showed pulmonary edema. On a separate note, the patient was hospitalized in early November for sepsis. At that time, the blood culture was positive for MRSA and the patient was treated with vancomycin. She required removal of previously inserted dialysis catheter and she completed a total of 4 weeks course of IV antibiotics with daptomycin. Most recent blood cultures have been negative. On 01/04/2024, the patient remains intubated on mechanical ventilator. This morning, the patient on a propofol running at 45 mcg/kg/min. She remains intubated on the mechanical ventilator. Assist-control mode with rate of 14, tidal volume of 400, FiO2 50% with a PEEP of 5. Chest x-ray shows pulmonary edema. Blood gas shows a pH of 7.46 with a pCO2 of 39 and pO2 of 68. Cardiac rhythm is sinus. She is afebrile and hemodynamically stable. White cell count is 6.4 with a hemoglobin 7.2 and a platelet count of 200. Sodium levels at 132, BUN 52 with a creatinine of 3.4 and a potassium levels of 4.2. Remains on Zosyn and vancomycin. Blood cultures have been sent and results are still pending. Echocardiogram was also ordered. Doppler of the neck area revealed nonocclusive band of filling defect in the internal jugular vein that is thought to be representing a thrombus. This is corroborated to the previous catheter insertion. She remains on aspirin and Plavix. She remains on IV Zosyn and vancomycin for now. Urine output is minimal and Lasix will be discontinued. She is on no pressors for now. 01/05/2024, the patient is being seen for a follow-up. The patient remains intubated on mechanical ventilator. The patient underwent hemodialysis yesterday a total of 3 L of fluid and ultrafiltration was done. This morning's chest x-ray still showing to some residual pulmonary edema. The patient remains sedated on propofol which is running at 40 mcg/kg/min. She is on a mechanical ventilator on assist-control mode with rate of 14, tidal volume of 400, FiO2 of 40% with a PEEP of 5. Blood gas showed a pH of 7.44 with pCO2 44 and pO2 of 126. Minimal urine output at this point in time. Hemodynamically stable. Afebrile. Remains NPO. Home medications will be resumed. In addition, the patient is covered with IV Zosyn and vancomycin pending further cultures. The urine culture is positive for gram-negative bacillus at this point in time. Patient was seen today on 01/06/2024, patient remains in the ICU, she was extubated yesterday at 5 PM on 01/05/2024. Apparently the patient coded for about 4 minutes at the time she was brought into the ICU and she was having a left IJ catheter placement. The cath was basically for dialysis, and now she has a right femoral catheter. Patient is being treated for urinary tract infection secondary to Enterobacter, she is receiving Zosyn, patient seems to be doing well today, seems to be a bit slow, but overall she is doing well and she is on 2 L nasal cannula hemodynamically stable, not in any distress. WBC count is 4.6, hemoglobin 7.4 basic metabolic profile is normal BUN is 27 creatinine 2.14. Chest x-ray this morning showed mild interstitial pulmonary edema with small left pleural effusion and atelectasis Patient was evaluated today on 01/07/2024, patient is doing well, she was transferred yesterday out of the ICU, and now she is on 3 S. Patient is doing great, relatively asymptomatic, no active pulmonary symptoms, patient is being followed by nephrology and still undergoing hemodialysis. WBC count is 4.2 hemoglobin 7.6 electrolytes are normal BUN is 14 creatinine 1.84 chest x-ray yesterday showed some mild interstitial edema and small left pleural effusion with atelectasis. Patient was evaluated today on 01/08/2024, patient is doing well, receiving hemodialysis earlier this morning, she is on room air, she has some vague aches and pains. But overall seems to be doing well. WBC count is 6.1 hemoglobin 8.1 sodium is low at 126 BUN is 21 creatinine 2.54, that being addressed by nephrol fidel. Patient was again today on 01/09/2024, patient is doing well, no active pulmonary symptoms. Patient had another dialysis catheter placed in the right subclavian area placed by vascular surgery, and I believe her right groin dialysis catheter has been removed patient remains on hemodialysis. She has no cough no wheezing no shortness of breath, she has some vague right upper quadrant pain, on physical examination did not seem to be surgical. WBC count is 5.5 hemoglobin 7.5 electrolytes are normal BUN is 14 creatinine 1.98 Objective - Vital Signs Vital signs: Vital Signs Temp 97.5 F L 01/09/24 07:00 Pulse 75 01/09/24 04:00 Resp 18 01/09/24 07:00 BP 122/74 01/09/24 07:00 Pulse Ox 99 01/09/24 07:00 FiO2 40 01/05/24 17:00 Intake & Output 01/08/24 01/09/24 01/09/24 18:59 06:59 18:59 Intake Total 990 286 Output Total 6500 250 Balance -5510 -250 286 Weight 55.6 kg Intake: IV 80 50 0.9 80 Intake, IV Titration 100 Amount Piperacillin-Tazobactam 3 100 .375 gm In Sodium Chloride 0.9% 100 ml @ 25 mls/hr IVPB Q12HR [facility] Rx #:[id number] Oral 360 236 Hemodialysis 450 Output: Urine 50 250 Hemodialysis 3450 Hemodialysis Net Amount 3000 Other: Voiding Method Bedpan Bedside Commode # Voids 1 - Exam General: 58-year-old female on room air, not in any distress Head exam was generally normal. There was no scleral icterus or corneal arcus. Mucous membranes were moist. HEENT: Head is atraumatic, normocephalic, pupils were equal round , sclera nonicteric, conjunctivae were pale, moist mucous membranes. Right subclavian dialysis catheter is noted Neck: Supple, negative JVd, normal carotid upstroke bilaterally, no l ymphadenopathy. Chest: Symmetrical chest expansion, diminished breath sounds at the bases no crackles rhonchi or wheezes Heart: Normal S1-S2, 2/6 systolic murmur throughout the left lower sternal bord er Abdomen: Soft, minimal tenderness in the right upper quadrant area no megaly no rebound no guarding. Bowel sounds. Extremities: Plus bipedal edema Neurologic examination: Alert and oriented x 3 no gross focal deficit Examination of the skin revealed no rashes. - Labs CBC & Chem 7: 01/09/24 04:15 01/09/24 04:15 Labs: Abnormal Lab Results - Last 24 Hours (Table) 01/08/24 01/08/24 01/09/24 Range/Units 16:15 20:10 04:15 RBC 2.85 L (3.80-5.40) m/uL Hgb 7.5 L (11.4-16.0) gm/dL Hct 26.5 L (34.0-46.0) % MCHC 28.4 L (31.0-37.0) g/dL RDW 17.9 H (11.5-15.5) % Sodium (137-145) mmol/L Creatinine (0.52-1.04) mg/dL Glucose (74-99) mg/dL POC Glucose (mg/dL) 162 H 134 H (70-110) mg/dL Calcium (8.4-10.2) mg/dL Alkaline Phosphatase (38-126) U/L Albumin (3.5-5.0) g/dL 01/09/24 01/09/24 Range/Units 04:15 11:33 RBC (3.80-5.40) m/uL Hgb (11.4-16.0) gm/dL Hct (34.0-46.0) % MCHC (31.0-37.0) g/dL RDW (11.5-15.5) % Sodium 136 L (137-145) mmol/L Creatinine 1.98 H (0.52-1.04) mg/dL Glucose 116 H (74-99) mg/dL POC Glucose (mg/dL) 155 H (70-110) mg/dL Calcium 8.2 L (8.4-10.2) mg/dL Alkaline Phosphatase 174 H (38-126) U/L Albumin 3.1 L (3.5-5.0) g/dL Microbiology - Last 24 Hours (Table) 01/03/24 15:56 Blood Culture - Final Blood Assessment and Plan Assessment: Impression: Acute PEA cardiac arrest, required brief CPR, intubation mechanical ventilation. End-stage disease on hemodialysis MRSA septicemia, treated with subsequent clearing of the blood cultures in early November 2023 Acute hypoxic respiratory failure secondary to above. Resolved was extubated on 01/05/2024 Congestion heart failure with preserved LV function Diabetes mellitus type 2 COPD Coronary artery disease with previous PCI and stenting of RCA Previous episodes of cardiac arrest back in July 2023 Hypertension Hyperlipidemia Chronic wounds in lower extremities History of rectal prolapse Recommendation: Continue hemodialysis Continue present supportive care measures Continue aspirin Plavix Antibiotics as per infectious disease for her recurrent urinary tract infection Continue bronchodilators Will continue to follow Time with Patient: Less than 30
--- NOTE | 2024-01-09 15:17 | P.PN ---
Subjective Progress Note Date: 01/09/24 CHIEF COMPLAINT: Cardiac arrest HISTORY OF PRESENT ILLNESS: Surgical service following in regards to patient's abdominal pain and cholecystitis. Patient is tolerating diet this morning. She reports improvement in her pain. Patient seen and evaluated by cardiology. They are recommending to postpone surgery for 1 year due to complete dual antiplatelet therapy. Afebrile. WBC 5.5 total bilirubin AST ALT normal alk phos 174 PHYSICAL EXAM: VITAL SIGNS: Reviewed. GENERAL: no acute distress. ABDOMEN: Soft. Nondistended. Mild tenderness right upper quadrant with palpation NEUROLOGIC: awake and alert ASSESSMENT: 1. Acute on chronic cholecystitis 2. Chronic rectal prolapse 3. Acute PEA cardiac arrest on admission 4. History of coronary artery disease and cardiac stent in May PLAN: -No surgical intervention planned at this time due to cardiac issues and needing to complete 1 year of the dual antiplatelet therapy due to her cardiac stent and in May -Appreciate cardiology recommendations -Continue low-fat diet Physician Youth Development Specialist note has been reviewed by physician. Signing provider agrees with the documented findings, assessment, and plan of care. Objective - Vital Signs Vital signs: Vital Signs Temp 97.5 F L 01/09/24 07:00 Pulse 75 01/09/24 04:00 Resp 18 01/09/24 07:00 BP 122/74 01/09/24 07:00 Pulse Ox 99 01/09/24 07:00 FiO2 40 01/05/24 17:00 Intake & Output 01/08/24 01/09/24 01/09/24 18:59 06:59 18:59 Intake Total 990 286 Output Total 6500 250 Balance -5510 -250 286 Weight 55.6 kg 55.6 kg Intake: IV 80 50 0.9 80 Intake, IV Titration 100 Amount Piperacillin-Tazobactam 3 100 .375 gm In Sodium Chloride 0.9% 100 ml @ 25 mls/hr IVPB Q12HR RYLIE Rx #:[id number] Oral 360 236 Hemodialysis 450 Output: Urine 50 250 Hemodialysis 3450 Hemodialysis Net Amount 3000 Other: Voiding Method Bedpan Bedside Commode # Voids 1 - Labs CBC & Chem 7: 01/09/24 04:15 01/09/24 04:15 Labs: Abnormal Lab Results - Last 24 Hours (Table) 01/08/24 01/08/24 01/09/24 Range/Units 16:15 20:10 04:15 RBC 2.85 L (3.80-5.40) m/uL Hgb 7.5 L (11.4-16.0) gm/dL Hct 26.5 L (34.0-46.0) % MCHC 28.4 L (31.0-37.0) g/dL RDW 17.9 H (11.5-15.5) % Sodium (137-145) mmol/L Creatinine (0.52-1.04) mg/dL Glucose (74-99) mg/dL POC Glucose (mg/dL) 162 H 134 H (70-110) mg/dL Calcium (8.4-10.2) mg/dL Alkaline Phosphatase (38-126) U/L Albumin (3.5-5.0) g/dL 01/09/24 01/09/24 Range/Units 04:15 11:33 RBC (3.80-5.40) m/uL Hgb (11.4-16.0) gm/dL Hct (34.0-46.0) % MCHC (31.0-37.0) g/dL RDW (11.5-15.5) % Sodium 136 L (137-145) mmol/L Creatinine 1.98 H (0.52-1.04) mg/dL Glucose 116 H (74-99) mg/dL POC Glucose (mg/dL) 155 H (70-110) mg/dL Calcium 8.2 L (8.4-10.2) mg/dL Alkaline Phosphatase 174 H (38-126) U/L Albumin 3.1 L (3.5-5.0) g/dL Microbiology - Last 24 Hours (Table) 01/03/24 15:56 Blood Culture - Final Blood
[2024-01-09 16:14] LABS: Glucose,Whole Blood 119 mg/dL (70-110)
--- NOTE | 2024-01-09 17:59 | P.PN ---
Subjective Progress Note Date: 01/08/24 HISTORY OF PRESENT ILLNESS: This is a 58-year-old female with a previous medical history signif icant for coronary artery disease status post PCI of the RCA 2023 with ischemic cardiomyopathy, hypertension and hypertensive cardiovascular disease, hyperlipidemia, diabetes mellitus type 2 uncontrolled, fracture of the right medial and lateral malleolus, anemia of chronic kidney disease, COPD, epistaxis, chronic kidney disease stage 4 due to cardiorenal syndrome she ended up getting started on dialysis on the last hospital admission about a month ago when she was admitted to the hospital with fluid overload and acute systolic heart failure and worsening renal failure despite aggressive diuresis, and using significant amount of diuretics, patient ended up going on dialysis she had a permanent catheter placed in the right internal jugular vein, and patient developed to have a significant MRSA bacteremia that required removal of the dialysis catheter and subsequently she was treated with IV antibiotic for a total I believe of 4 weeks of IV antibiotic in the form of daptomycin, patient b lood cultures normalizes, the patient ended up having another permacatheter placed in the left internal jugular vein, and the patient was discharged to [facility] and she has been there she has been going to dialysis at [facility] and she has been doing fine apparently patient underwent dialysis yesterday, and she had pulled her dialysis catheter today she ended up coming to the ER for evaluation she was taken to the [facility] for replacement of the the left internal jugular catheter but the patient became quite agitated, and she went into pulseless electrical activity she did receive 2 epinephrine, she was intubated at the [facility], she was admitted to the ICU, she was admitted under my service, with consultation to Dr. Romo from intensive care unit, patient is currently being seen in the ICU, she is currently on the ventilator, she is sedated with Precedex, and had a chest x-ray in the ICU that showed evidence of significant pulmonary vascular congestion as well as bilateral pulmonary infiltrates, patient may have had aspirated, she will be started on Zosyn 3.375 g of piggyback every 8 hours as well as vancomycin pharmacy to dose its peak and trough, patient will have a sputum culture, blood culture, urine culture, and she will be seen in consultation by brick tosser, she will be seen in consultation by infectious disease Dr. Subramanian as well. 01/05: Patient is sitting up in a chair in no apparent distress, patient underwent hemodialysis she just had 4 L taken out, she continues to have significant restless leg syndrome and she has been getting ropinirole 2 mg at bedtime, we will continue to monitor the patient very closely, patient has been maintained o n vancomycin as well as Zosyn for now, we will continue to monitor the patient very closely, monitor the culture, the plan is for the patient to be transferred back to [facility] when the patient is more stable. Likely the patient will be moved to monitored bed in the next 24 hours. 01/06: Send has significant restless leg overnight we will increase her ropinirole to 2 mg orally twice every day, monitor the patient very closely, patient is scheduled to go for hemodialysis tomorrow morning, urine culture showed evidence of Enterobacter cloacae that is resistant to a lot of antibiotic except for Zosyn which she is on sputum culture showed Lacy albicans which considered to be normal ananya, maintain the patient on current IV antibiotic, discontinue vancomycin and Zosyn tomorrow morning and start the patient on Augmentin 500/125 mg orally twice every day for the next 7 days. Patient most likely will be able to be discharged back to [facility] tomorrow morning. 01/07: Patient is sitting up in the chair in no apparent distress, she had dialysis today, she denies any chest pain, shortness of breath, she continues to have some swelling both lower extremities, she she did have significant amount of right upper quadrant abdominal pain that started 1:00 in the morning associate with nausea but no vomiting, and did have have abdominal x-ray did not show evidence of acute abnormalities, ultrasound of the abdomen showed evidence of increased thickness of the gallbladder with possible cholecystitis patient has been on Zosyn we will continue with that, patient was seen in consultation by general surgery it was recommended for the patient to have laparoscopic cholecystectomy after she is cleared by cardiology. REVIEW OF SYSTEMS: Constitutional: No documented fever, no chills, no night sweats. No weight change. No weakness, fatigue or lethargy. No daytime sleepiness. EENT: No headache. No blurred vision or double vision, no loss of vision. No loss of Hearing, no ringing in the ears, no dizziness. No nasal drainage or congestion. No epistaxis. No sore throat. Lungs: No shortness of breath, no cough, no sputum production. No wheezing. R eports dyspnea with activity. Cardiovascular: No chest pain, no lower extremity edema. No palpitations. No paroxysmal nocturnal dyspnea. No orthopnea. No lightheadedness or dizziness. No syncopal episodes. Abdominal: Reports no abdominal pain. No nausea, vomiting. No diarrhea. No constipation. No bloody or tarry stools reports loss of appetite. Genitourinary: No dysuria, increased frequency, urgency. No urinary retention. H[place] catheter in place. Musculoskeletal: No myalgias. No muscle weakness, positive for gait dysfunction, no frequent falls. No back pain. No neck pain. Integumentary: Right heel wound appears to have a clean base no lesions. No rash or pruritus. No unusual bruising. No change in hair or nails. Neurologic: No aphasia. No facial droop. No change in mentation. No head injury. No headache. No paralysis. No paresthesia. Psychiatric: No depression. No anxiety. No mood swings. Endocrine: No abnormal blood sugars. No weight change. PHYSICAL EXAMINATION: General: 58-year-old female sitting up in bed in no apparent distress. HEENT: Head is atraumatic, normocephalic, pupils were equal round , sclera nonicteric, conjunctivae were pale, mucous membranes of the mouth are somewhat dry. Neck: Supple, Increased JVP, normal carotid upstroke bilaterally, no lymphadenopathy. Chest: Decreased breath sounds at the bases, few rhonchi, moderate minimal expiratory wheezes, no chest wall tenderness, moderate intercostal retractions. Heart: First heart sound is normal, second heart sound is normal there is systolic ejection murmur 2/6 located in the left sternal border. Abdomen: Soft, nontender, nondistended, positive bowel sounds increased abdominal wall edema. Extremities: There is +2 edema no calf tenderness DP +1 bilaterally. Right heel wound about 3.5 x 4.1 x 0.5 cm with minimal fibrinous cap Neurologic examination: Patient is awake alert and oriented x 3, cranial nerves III to XII appear gross intact, muscle power for 4 out of 5 in bilateral upper extremities and 3 out of 5 in the bilateral lower extremities. ASSESSMENT AND PLAN: 1. Acute hypoxemic vent dependent respiratory failure due to cardiac arrest/pulseless electrical activity status post 2 epinephrine via ACLS protocol. Patient since was extubated and she is currently maintained on 2 L nasal cannula. 2. Acute on chronic systolic heart failure. Continue with hemodialysis Saturday and Saturday, monitor the patient input and output and daily weight continue hydralazine 25 mg orally twice every day. 3. Acute hypoxemic respiratory failure due to cardiac arrest as well as possible aspiration pneumonia. Continue patient on Zosyn and vancomycin, continue to monitor the patient culture, continue aggressive pulmonary toileting. 4. Coronary artery disease status post PCI of the RCA. Continue patient on aspirin 81 mg once every day, Plavix 75 mg once every day, atorvastatin 40 mg orally once every day. 5. Hypertension and hypertensive cardiovascular disease. Continue hydralazine 25 mg orally twice every day, monitor the patient blood pressure very closely. 6. Mixed hyperlipidemia. Continue patient on atorvastatin 40 mg orally once every day, monitor lipid panel, keep LDL 55-70. 7. Diabetes mellitus type 2. Continue patient on sliding scale insulin. 8. Close leg syndrome. Continue ropinirole 2 mg orally once at bedtime. 9. Anemia of chronic kidney disease. Continue to monitor the patient CBC. 10. Hypothyroidism. Continue levothyroxine 75 mcg orally once every day. 11. COPD exacerbation continue patient on DuoNeb 3 mm laceration 4 times every day, continue oxygen 2 L nasal cannula, pulmonary is following. 12. Chronic hypoxemic respiratory failure due to combination of nonischemic cardiomyopathy and COPD. Continue treatment as in the first and second paragraph. 13. Subacute fracture of the medial and lateral malleolus currently in boot no surgical intervention is planned 14. GERD. Continue pantoprazole 40 mg orally once every day. 15. DVT prophylaxis. Heparin 5000 units subcutaneous every 12 hours. 16. right upper quadrant abdominal pain likely related to dysfunctional gallbladder with cholelithiasis. Continue Zosyn for now, patient is a high risk for surgery at this time, we will defer to cardiology for surgical clearance. 17. Medical debility. Continue with physical therapy and Occupational Therapy evaluation, the plan is to transfer the patient back to [facility] 18. Right foot wound cleanse the wound with saline and apply Aquacel silver and cover with Optifoam change dressing Saturday and Saturday. 19. Very guarded prognosis. Objective - Vital Signs Vital signs: Vital Signs Temp 97.3 F L 01/08/24 11:28 Pulse 74 01/08/24 11:28 Resp 18 01/08/24 11:28 BP 120/72 01/08/24 11:28 Pulse Ox 99 01/08/24 11:28 FiO2 40 01/05/24 17:00 Intake & Output 01/07/24 01/08/24 01/08/24 18:59 06:59 18:59 Intake Total 240 120 Output Total 50 Balance 240 70 Weight 52.5 kg Intake: Oral 240 120 Output: Urine 50 Other: Voiding Method Indwelling Catheter Indwelling Catheter Bedpan # Voids 1 # Bowel Movements 1 1 - Labs CBC & Chem 7: 01/09/24 04:15 01/09/24 04:15 Labs: Abnormal Lab Results - Last 24 Hours (Table) 01/07/24 01/07/24 01/08/24 Range/Units 16:19 19:56 01:18 RBC (3.80-5.40) m/uL Hgb (11.4-16.0) gm/dL Hct (34.0-46.0) % MCHC (31.0-37.0) g/dL RDW (11.5-15.5) % Lymphocytes # (1.0-4.8) k/uL Sodium (137-145) mmol/L Chloride (98-107) mmol/L BUN (7-17) mg/dL Creatinine (0.52-1.04) mg/dL Glucose (74-99) mg/dL POC Glucose (mg/dL) 213 H 131 H 159 H (70-110) mg/dL Alkaline Phosphatase (38-126) U/L Albumin (3.5-5.0) g/dL 01/08/24 01/08/24 01/08/24 Range/Units 02:24 02:24 06:07 RBC 2.96 L (3.80-5.40) m/uL Hgb 7.7 L (11.4-16.0) gm/dL Hct 27.7 L (34.0-46.0) % MCHC 27.9 L (31.0-37.0) g/dL RDW 18.2 H (11.5-15.5) % Lymphocytes # 0.4 L (1.0-4.8) k/uL Sodium 132 L (137-145) mmol/L Chloride (98-107) mmol/L BUN 20 H (7-17) mg/dL Creatinine 2.39 H (0.52-1.04) mg/dL Glucose 150 H (74-99) mg/dL POC Glucose (mg/dL) 154 H (70-110) mg/dL Alkaline Phosphatase 208 H (38-126) U/L Albumin 3.3 L (3.5-5.0) g/dL 01/08/24 01/08/24 01/08/24 Range/Units 07:50 07:50 11:11 RBC 2.96 L (3.80-5.40) m/uL Hgb 8.1 L (11.4-16.0) gm/dL Hct 27.7 L (34.0-46.0) % MCHC 29.0 L (31.0-37.0) g/dL RDW 18.2 H (11.5-15.5) % Lymphocytes # (1.0-4.8) k/uL Sodium 126 L (137-145) mmol/L Chloride 93 L (98-107) mmol/L BUN 21 H (7-17) mg/dL Creatinine 2.54 H (0.52-1.04) mg/dL Glucose 137 H (74-99) mg/dL POC Glucose (mg/dL) 144 H (70-110) mg/dL Alkaline Phosphatase 204 H (38-126) U/L Albumin 3.4 L (3.5-5.0) g/dL
--- NOTE | 2024-01-09 18:01 | P.PN ---
Subjective Progress Note Date: 01/09/24 HISTORY OF PRESENT ILLNESS: This is a 58-year-old female with a previous medical history signif icant for coronary artery disease status post PCI of the RCA 2023 with ischemic cardiomyopathy, hypertension and hypertensive cardiovascular disease, hyperlipidemia, diabetes mellitus type 2 uncontrolled, fracture of the right medial and lateral malleolus, anemia of chronic kidney disease, COPD, epistaxis, chronic kidney disease stage 4 due to cardiorenal syndrome she ended up getting started on dialysis on the last hospital admission about a month ago when she was admitted to the hospital with fluid overload and acute systolic heart failure and worsening renal failure despite aggressive diuresis, and using significant amount of diuretics, patient ended up going on dialysis she had a permanent catheter placed in the right internal jugular vein, and patient developed to have a significant MRSA bacteremia that required removal of the dialysis catheter and subsequently she was treated with IV antibiotic for a total I believe of 4 weeks of IV antibiotic in the form of daptomycin, patient b lood cultures normalizes, the patient ended up having another permacatheter placed in the left internal jugular vein, and the patient was discharged to [facility] and she has been there she has been going to dialysis at [facility] and she has been doing fine apparently patient underwent dialysis yesterday, and she had pulled her dialysis catheter today she ended up coming to the ER for evaluation she was taken to the [facility] for replacement of the the left internal jugular catheter but the patient became quite agitated, and she went into pulseless electrical activity she did receive 2 epinephrine, she was intubated at the [facility], she was admitted to the ICU, she was admitted under my service, with consultation to Dr. Romo from intensive care unit, patient is currently being seen in the ICU, she is currently on the ventilator, she is sedated with Precedex, and had a chest x-ray in the ICU that showed evidence of significant pulmonary vascular congestion as well as bilateral pulmonary infiltrates, patient may have had aspirated, she will be started on Zosyn 3.375 g of piggyback every 8 hours as well as vancomycin pharmacy to dose its peak and trough, patient will have a sputum culture, blood culture, urine culture, and she will be seen in consultation by funeral workers, she will be seen in consultation by infectious disease Dr. Subramanian as well. 01/05: Patient is sitting up in a chair in no apparent distress, patient underwent hemodialysis she just had 4 L taken out, she continues to have significant restless leg syndrome and she has been getting ropinirole 2 mg at bedtime, we will continue to monitor the patient very closely, patient has been maintained o n vancomycin as well as Zosyn for now, we will continue to monitor the patient very closely, monitor the culture, the plan is for the patient to be transferred back to [facility] when the patient is more stable. Likely the patient will be moved to monitored bed in the next 24 hours. 01/06: Send has significant restless leg overnight we will increase her ropinirole to 2 mg orally twice every day, monitor the patient very closely, patient is scheduled to go for hemodialysis tomorrow morning, urine culture showed evidence of Enterobacter cloacae that is resistant to a lot of antibiotic except for Zosyn which she is on sputum culture showed Lacy albicans which considered to be normal ananya, maintain the patient on current IV antibiotic, discontinue vancomycin and Zosyn tomorrow morning and start the patient on Augmentin 500/125 mg orally twice every day for the next 7 days. Patient most likely will be able to be discharged back to [facility] tomorrow morning. 01/07: Patient is sitting up in the chair in no apparent distress, she had dialysis today, she denies any chest pain, shortness of breath, she continues to have some swelling both lower extremities, she she did have significant amount of right upper quadrant abdominal pain that started 1:00 in the morning associate with nausea but no vomiting, and did have have abdominal x-ray did not show evidence of acute abnormalities, ultrasound of the abdomen showed evidence of increased thickness of the gallbladder with possible cholecystitis patient has been on Zosyn we will continue with that, patient was seen in consultation by general surgery it was recommended for the patient to have laparoscopic cholecystectomy after she is cleared by cardiology. 01/08: Patient will not be going for laparoscopic cholecystectomy as the patient is a high risk for surgery at this point in time, and the patient is aware of that, therefore the patient can be discharged back to [facility] in the next 24 hours after hemodialysis, patient is having some issues with bleeding from the abdominal wall where the heparin injection is given we will discontinue heparin injection completely, continue to apply pressure dressing, monitor the patient's hemoglobin over the next 24 hours, patient will be kept on Zosyn for now, hopefully she will be able to switch to oral Augmentin 500/125 mg orally twice every day for the next 7 days. REVIEW OF SYSTEMS: Constitutional: No documented fever, no chills, no night sweats. No weight change. No weakness, fatigue or lethargy. No daytime sleepiness. EENT: No headache. No blurred vision or double vision, no loss of vision. No loss of Hearing, no ringing in the ears, no dizziness. No nasal drainage or congestion. No epistaxis. No sore throat. Lungs: No shortness of breath, no cough, no sputum production. No wheezing. Reports dyspnea with activity. Cardiovascular: No chest pain, no lower extremity edema. No palpitations. No paroxysmal nocturnal dyspnea. No orthopnea. No lightheadedness or dizziness. No syncopal episodes. Abdominal: Reports no abdominal pain. No nausea, vomiting. No diarrhea. No constipation. No bloody or tarry stools reports loss of appetite. Genitourinary: No dysuria, increased frequency, urgency. No urinary retention. [place] catheter in place. Musculoskeletal: No myalgias. No muscle weakness, positive for gait dysfu nction, no frequent falls. No back pain. No neck pain. Integumentary: Right heel wound appears to have a clean base no lesions. No rash or pruritus. No unusual bruising. No change in hair or nails. Neurologic: No aphasia. No facial droop. No change in mentation. No head injury. No headache. No paralysis. No paresthesia. Psychiatric: No depression. No anxiety. No mood swings. Endocrine: No abnormal blood sugars. No weight change. PHYSICAL EXAMINATION: General: 58-year-old female sitting up in bed in no apparent distress. HEENT: Head is atraumatic, normocephalic, pupils were equal round , sclera nonicteric, conjunctivae were pale, mucous membranes of the mouth are somewhat dry. Neck: Supple, Increased JVP, normal carotid upstroke bilaterally, no lymphadenopathy. Chest: Decreased breath sounds at the bases, few rhonchi, moderate minimal expiratory wheezes, no chest wall tenderness, moderate intercostal retractions. Heart: First heart sound is normal, second heart sound is normal there is systolic ejection murmur 2/6 located in the left sternal border. Abdomen: Soft, nontender, nondistended, positive bowel sounds increased abdominal wall edema. Extremities: There is +2 edema no calf tenderness DP +1 bilaterally. Right heel wound about 3.5 x 4.1 x 0.5 cm with minimal fibrinous cap Neurologic examination: Patient is awake alert and oriented x 3, cranial nerves III to XII appear gross intact, muscle power for 4 out of 5 in bilateral upper extremities and 3 out of 5 in the bilateral lower extremities. ASSESSMENT AND PLAN: 1. Acute hypoxemic vent dependent respiratory failure due to cardiac arrest/pulseless electrical activity status post 2 epinephrine via ACLS protocol. Patient since was extubated and she is currently maintained on 2 L nasal cannula. 2. Acute on chronic systolic heart failure. Continue with hemodialysis Saturday and Saturday, monitor the patient input and output and daily weight continue hydralazine 25 mg orally twice every day. 3. Acute hypoxemic respiratory failure due to cardiac arrest as well as possible aspiration pneumonia. Continue patient on Zosyn and vancomycin, continue to monitor the patient culture, continue aggressive pulmonary toileting. 4. Coronary artery disease status post PCI of the RCA. Continue patient on aspirin 81 mg once every day, Plavix 75 mg once every day, atorvastatin 40 mg orally once every day. 5. Hypertension and hypertensive cardiovascular disease. Continue hydralazine 25 mg orally twice every day, monitor the patient blood pressure very closely. 6. Mixed hyperlipidemia. Continue patient on atorvastatin 40 mg orally once every day, monitor lipid panel, keep LDL 55-70. 7. Diabetes mellitus type 2. Continue patient on sliding scale insulin. 8. Close leg syndrome. Continue ropinirole 2 mg orally once at bedtime. 9. Anemia of chronic kidney disease. Continue to monitor the patient CBC. 10. Hypothyroidism. Continue levothyroxine 75 mcg orally once every day. 11. COPD exacerbation continue patient on DuoNeb 3 mm laceration 4 times every day, continue oxygen 2 L nasal cannula, pulmonary is following. 12. Chronic hypoxemic respiratory failure due to combination of nonischemic cardiomyopathy and COPD. Continue treatment as in the first and second paragraph. 13. Subacute fracture of the medial and lateral malleolus currently in boot no surgical intervention is planned 14. GERD. Continue pantoprazole 40 mg orally once every day. 15. DVT prophylaxis. Heparin 5000 units subcutaneous every 12 hours. 16. right upper quadrant abdominal pain likely related to dysfunctional gallbladder with cholelithiasis. Continue Zosyn for now, patient is a high risk for surgery at this time, we will defer to cardiology for surgical clearance. 17. Medical debility. Continue with physical therapy and Occupational Therapy evaluation, the plan is to transfer the patient back to [facility] 18. Right foot wound cleanse the wound with saline and apply Aquacel silver and cover with Optifoam change dressing Saturday and Saturday. 19. Superficial abdominal wall bleeding likely related to heparin injection. Discontinue heparin completely continue apply pressure dressing. 20. [facility] tomorrow after dialysis. Objective - Vital Signs Vital signs: Vital Signs Temp 97.6 F 01/09/24 12:43 Pulse 79 01/09/24 15:56 Resp 18 01/09/24 15:56 BP 146/80 01/09/24 15:56 Pulse Ox 100 01/09/24 15:56 FiO2 40 01/05/24 17:00 Intake & Output 01/08/24 01/09/24 01/09/24 18:59 06:59 18:59 Intake Total 990 286 Output Total 6500 250 Balance -5510 -250 286 Weight 55.6 kg 55.6 kg Intake: IV 80 50 0.9 80 Intake, IV Titration 100 Amount Piperacillin-Tazobactam 3 100 .375 gm In Sodium Chloride 0.9% 100 ml @ 25 mls/hr IVPB Q12HR [facility] Rx #:[id number] Oral 360 236 Hemodialysis 450 Output: Urine 50 250 Hemodialysis 3450 Hemodialysis Net Amount 3000 Other: Voiding Method Bedpan Bedside Commode # Voids 1 1 # Bowel Movements 1 - Labs CBC & Chem 7: 01/09/24 04:15 01/09/24 04:15 Labs: Abnormal Lab Results - Last 24 Hours (Table) 01/08/24 01/09/24 01/09/24 Range/Units 20:10 04:15 04:15 RBC 2.85 L (3.80-5.40) m/uL Hgb 7.5 L (11.4-16.0) gm/dL Hct 26.5 L (34.0-46.0) % MCHC 28.4 L (31.0-37.0) g/dL RDW 17.9 H (11.5-15.5) % Sodium 136 L (137-145) mmol/L Creatinine 1.98 H (0.52-1.04) mg/dL Glucose 116 H (74-99) mg/dL POC Glucose (mg/dL) 134 H (70-110) mg/dL Calcium 8.2 L (8.4-10.2) mg/dL Alkaline Phosphatase 174 H (38-126) U/L Albumin 3.1 L (3.5-5.0) g/dL 01/09/24 01/09/24 Range/Units 11:33 16:12 RBC (3.80-5.40) m/uL Hgb (11.4-16.0) gm/dL Hct (34.0-46.0) % MCHC (31.0-37.0) g/dL RDW (11.5-15.5) % Sodium (137-145) mmol/L Creatinine (0.52-1.04) mg/dL Glucose (74-99) mg/dL POC Glucose (mg/dL) 155 H 119 H (70-110) mg/dL Calcium (8.4-10.2) mg/dL Alkaline Phosphatase (38-126) U/L Albumin (3.5-5.0) g/dL Microbiology - Last 24 Hours (Table) 01/03/24 15:56 Blood Culture - Final Blood
[2024-01-09 20:12] LABS: Glucose,Whole Blood 143 mg/dL (70-110)
[2024-01-10 06:05] LABS: Glucose,Whole Blood 186 mg/dL (70-110)
[2024-01-10 06:22] LABS: ALT 10 U/L (4-34); AST 25 U/L (14-36); African American GFR (CKD) 18 (>60 ml/min/1.73 sqM); Albumin 3.3 g/dL (3.5-5.0); Alkaline Phosphatase 178 U/L (38-126); Anion Gap 9 mmol/L; Blood Urea Nitrogen 29 mg/dL (7-17); Calcium 8.7 mg/dL (8.4-10.2); Carbon Dioxide 26 mmol/L (22-30); Chloride 101 mmol/L (98-107); Glucose 174 mg/dL (74-99); Non-African American GFR(CKD) 16 (>60 ml/min/1.73 sqM); Sodium 136 mmol/L (137-145); Total Bilirubin 0.7 mg/dL (0.2-1.3); Total Protein 7.4 g/dL (6.3-8.2)
[2024-01-10 07:10] LABS: Anisocytosis Slight; HCT 27.3 % (34.0-46.0); Hypochromasia Marked; MCH 27.1 pg (25.0-35.0); MCHC 29.3 g/dL (31.0-37.0); MCV 92.5 fL (80.0-100.0); Mean Platelet Volume 9.8; Platelet Count 256 k/uL (150-450); Poikilocytosis Slight; RBC 2.95 m/uL (3.80-5.40); WBC 5.2 k/uL (3.8-10.6)
--- NOTE | 2024-01-10 09:26 | P.CONS ---
History of Present Illness - Reason for Consult Consult date: 01/09/24 Recent MRSA infection Requesting physician: Mateo Zambrano - Chief Complaint Dialysis catheter issues on admission - History of Present Illness Patient is a 58-year-old female with a past medical history significant for diabetes mellitus hypertension hyperlipidemia end-stage renal disease on dialysis patient recently did have prolonged hospital stay and she di d have MRSA bacteremia thought to be related to the right IJ pulm catheter which was discontinued patient did clear her bacteremia subsequently did have a left IJ permacath placement and patient has completed almost 4 weeks of IV daptomycin patient was receiving dialysis in the outpatient setting and currently admitted to the hospital about a week ago after apparently the patient has pulled out her dialysis catheter patient was taken back to [facility] for placement of a dialysis catheter with the patient did have a cardiac arrest get intubated and was transferred to the ICU there was concern for possible aspiration pneumonitis and the patient has been broadly treated with vancomycin and Zosyn over the last 1 week patient subsequently has been extubated and transferred to the cardiac unit patient did not have any fever during this hospital stay and the patient did have a normal white count throughout her hospital stay she did have a positive urine and culture did grew multiresistant Enterobacter she did have blood culture on 01/03/2024 times has been negative sputum has been Lacy albicans patient also have an abdominal ultrasound there was gallbladder wall thickening sludge possible trace pericholecystic fluid no biliary duct dilatation General Surgery has been on the case and the patient was considered to be high risk for any surgical intervention infectious disease was consulted today after the patient has been hospital for about a week for management of antibiotic therapy patient mention she is feeling better she is currently on a 2 L current oxygen denies any headache no chest pain shortness of breath or cough no nausea vomiting no abdominal pain or diarrhea has been insisting on going back to rehab last chest x-ray on 01/06/2024 mild interstitial pulmonary edema s mall left effusion Review of Systems Positive point and negatives has been mentioned in the HPI, complete review of systems was performed and all other systems are negative Past Medical History Past Medical History: Diabetes Mellitus, Hyperlipidemia, Hypertension, Renal Disease Additional Past Medical History / Comment(s): restless leg, neurothopy, Guillain-[place], dialysis Last Myocardial Infarction Date:: 2023 History of Any Multi-Drug Resistant Organisms: MRSA Year Discovered:: 11/28/23 MDRO Source:: blood Past Surgical History: Orthopedic Surgery, Tonsillectomy Additional Past Surgical History / Comment(s): "plate in left leg to straighten leg as a child" - plate removed, right total hip replacement due to a fracture from a fall, dialysis Past Anesthesia/Blood Transfusion Reactions: No Reported Reaction Past Psychological History: No Psychological Hx Reported Smoking Status: Former smoker Past Alcohol Use History: None Reported Past Drug Use History: None Reported - Past Family History Mother History Unknown: Yes Additional Family Medical History / Comment(s): pt sedated on vent Medications and Allergies Home Medications Medication Instructions Recorded Confirmed Type Ipratropium-Albuterol Nebulize 3 ml INHALATION RT-Q6H PRN 10/09/23 01/03/24 History [Duoneb 0.5 mg-3 mg/3 ml Soln] Multivitamins, Thera [Multivitamin 1 tab PO DAILY@0810/09/23 01/03/24 History (formulary)] Calcium Acetate [PhosLo] 667 mg PO TID-W/MEALS tab 10/21/23 01/03/24 Rx Insulin Lispro [humaLOG Kwikpen] See Protocol SQ AC-TID@08,12,16 11/21/23 01/03/24 History Levothyroxine Sodium [Synthroid] 75 mcg PO DAILY@59911/21/23 01/03/24 History Aspirin 81 mg PO DAILY@79901/03/24 01/03/24 History Atorvastatin [Lipitor] 40 mg PO HS@199901/03/24 01/03/24 History Clopidogrel [Plavix] 75 mg PO DAILY@99901/03/24 01/03/24 History Docusate [Colace] 100 mg PO BID@0800,199901/03/24 01/03/24 History Folic Acid 1 mg PO DAILY@79901/03/24 01/03/24 History Gabapentin [Neurontin] 100 mg PO BID@0500,1700 01/03/24 01/03/24 History Melatonin 5 mg PO HS@199901/03/24 01/03/24 History Midodrine [ProAmatine] 5 mg PO BID@0800,1600 PRN 01/03/24 01/03/24 History Pantoprazole [Protonix] 40 mg PO DAILY@79901/03/24 01/03/24 History Thiamine [Vitamin B-1] 100 mg PO DAILY@79901/03/24 01/03/24 History hydrALAZINE HCL [Apresoline] 25 mg PO BID@799,199901/03/24 01/03/24 History rOPINIRole HCL [Requip] 2 mg PO HS@199901/03/24 01/03/24 History Amoxic-Pot Clav 500-125 mg 1 each PO BID 5 Days tab 01/10/24 Rx [Augmentin 500-125 mg] Darbepoetin Frantz [Aranesp] 40 mcg SQ Q7D each 01/10/24 Rx HYDROcodone/APAP 7.5-325MG [[place] 1 tab PO Q6H PRN #12 tab 01/10/24 Rx 7.5-325] Torsemide [Demadex] 40 mg PO DAILY tab 01/10/24 Rx Allergies Allergy/AdvReac Type Severity Reaction Status Date / Time No Known Allergies Allergy Verified 01/03/24 10:58 Physical Exam Vitals: Vital Signs Temp Pulse Resp BP Pulse Ox 01/09/24 04:00 97.9 F 75 18 122/74 99 01/09/24 00:00 70 18 118/75 98 01/08/24 16:33 97.5 F L 74 20 119/66 100 01/08/24 15:32 97.4 F L 78 18 129/74 01/08/24 11:28 97.3 F L 74 18 120/72 99 Intake and Output 01/08/24 01/09/24 01/09/24 22:59 06:59 14:59 Intake Total 870 50 Output Total 6450 250 Balance -5580 -250 50 Intake: IV 80 50 0.9 80 Intake, IV Titration 100 Amount Piperacillin-Tazobactam 3 100 .375 gm In Sodium Chloride 0.9% 100 ml @ 25 mls/hr IVPB Q12HR [facility] Rx #:[id number] Oral 240 Hemodialysis 450 Output: Urine 250 Hemodialysis 3450 Hemodialysis Net Amount 3000 Other: Weight 55.6 kg GENERAL DESCRIPTION: Middle-aged female up in the chair, no distress. No tachypnea or accessory muscle of respiration use. HEENT: Shows Pallor , no scleral icterus. Oral mucous membrane is dry. No pharyngeal erythema or thrush NECK: Trachea central, no thyromegaly. LUNGS: Unlabored breathing. Clear to auscultation anteriorly. No wheeze or crackle. HEART: S1, S2, regular rate and rhythm. No loud murmur ABDOMEN: Soft, no tenderness , guarding or rigidity, no organomegaly EXTREMITIES: Right heel ulcer with minimal drainage no significant redness SKIN: No rash, no masses palpable. NEUROLOGICAL: The patient is awake, alert, oriented x3, mood and affect normal. Results CBC & Chem 7: 01/10/24 05:56 01/10/24 05:56 Labs: Abnormal Lab Results - Last 24 Hours (Table) 01/08/24 01/08/24 01/08/24 Range/Units 11:11 16:15 20:10 RBC (3.80-5.40) m/uL Hgb (11.4-16.0) gm/dL Hct (34.0-46.0) % MCHC (31.0-37.0) g/dL RDW (11.5-15.5) % Sodium (137-145) mmol/L Creatinine (0.52-1.04) mg/dL Glucose (74-99) mg/dL POC Glucose (mg/dL) 144 H 162 H 134 H (70-110) mg/dL Calcium (8.4-10.2) mg/dL Alkaline Phosphatase (38-126) U/L Albumin (3.5-5.0) g/dL 01/09/24 01/09/24 Range/Units 04:15 04:15 RBC 2.85 L (3.80-5.40) m/uL Hgb 7.5 L (11.4-16.0) gm/dL Hct 26.5 L (34.0-46.0) % MCHC 28.4 L (31.0-37.0) g/dL RDW 17.9 H (11.5-15.5) % Sodium 136 L (137-145) mmol/L Creatinine 1.98 H (0.52-1.04) mg/dL Glucose 116 H (74-99) mg/dL POC Glucose (mg/dL) (70-110) mg/dL Calcium 8.2 L (8.4-10.2) mg/dL Alkaline Phosphatase 174 H (38-126) U/L Albumin 3.1 L (3.5-5.0) g/dL Microbiology - Last 24 Hours (Table) 01/03/24 15:56 Blood Culture - Final Blood Assessment and Plan (1) History of MRSA infection Current Visit: Yes Status: Acute Code(s): Z86.14 - PERSONAL HISTORY OF METHICILLIN RESIS STAPH INFECTION SNOMED Code(s): 520898616 (2) Type 2 diabetes mellitus with foot ulcer Current Visit: No Status: Acute Code(s): E11.621 - TYPE 2 DIABETES MELLITUS WITH FOOT ULCER; L97.509 - NON-PRESSURE CHRONIC ULCER OTH PRT UNSP FOOT W UNSP SEVERITY SNOMED Code(s): 9654851697834 Plan: 1patient recently did have a dialysis catheter infection with MRSA bacteremia patient has clear her bacteremia on her last visit no being readmitted to hospital after pending the patient pulled out her dialysis catheter subsequently did have a cardiac arrest while placement of another dialysis catheter patient did have a blood culture done this admission on 01/03/2024 that has been negative patient has been afebrile and did have normal white count meaning adequate treatment of underlying previous MRSA bacteremia and no need for further vancomycin. 2patient is also on Zosyn with initial concern for possible aspiration pneumonitis chest x-ray has been mostly fluid overload with the ultrasound suspicious for cholecystitis May continue Zosyn and transition to short course of Augmentin on discharge. 3-patient did have a right heel diabetic foot ulcer which seem to have reopened but no significant cellulitis recommend local wound care with the dry Aquacel dressing change every 48 hour and keep the area of the pressure We will follow on clinical condition and cultures to further adjust medication if needed Thank you for this consultation we will follow the patient along with you Dictation was produced using [employer] dictation software. please excuse any grammatical, word or spelling errors. Time with Patient: Greater than 30
[2024-01-10 09:38] LABS: Eosinophils # (M) 0.52 k/uL (0-0.7); Lymphocytes # (M) 0.47 k/uL (1.0-4.8); Monocytes # (M) 0.36 k/uL (0-1.0); Neutrophils # (M) 3.85 k/uL (1.3-7.7); Neutrophils % (M) 74 %; Nucleated Red Blood Cells 0 /100 WBC (0-0); Total Cells Counted 100
--- NOTE | 2024-01-10 10:17 | XR ---
EXAMINATION TYPE: XR chest 1V portable DATE OF EXAM: 01/10/2024 Comparison: 01/06/2024 Clinical History: 58-year-old female permacath placement Findings: Heart upper limits of normal in size. Right-sided double-lumen hemodialysis catheter tips at the cavo atrial junction. Atherosclerotic arch calcifications. Interstitial densities remain but show improvem ent compared to prior study. Similar asymmetric elevation right hemidiaphragm. Impression: 1. Right-sided double-lumen hemodialysis catheter tips at the cavoatrial junction. 2. Interstitial densities persist but show improvement compared to 01/06/2024.
--- NOTE | 2024-01-10 10:50 | P.PN ---
Subjective Patient is seen in follow-up for acute kidney injury, hemodialysis dependent. Tolerating dialysis well. On nasal cannula. Hemodynamically stable. No active complaints today. Vital signs are stable. General: No acute distress. HEENT: On nasal cannula. LUNGS: No audible rhonchi or wheezes. HEART: Rate and Rhythm are regular. ABDOMEN: No distention. EXTREMITITES: 1+ edema. Objective - Vital Signs Vital signs: Vital Signs Temp 97.8 F 01/10/24 04:00 Pulse 74 01/10/24 04:00 Resp 18 01/10/24 04:00 BP 105/64 01/10/24 04:00 Pulse Ox 92 L 01/10/24 04:00 FiO2 40 01/05/24 17:00 Intake & Output 01/09/24 01/10/24 01/10/24 18:59 06:59 18:59 Intake Total 404 120 Balance 404 120 Weight 55.6 kg 58.7 kg Intake: IV 50 Oral 354 120 Other: Voiding Method Bedside Commode Bedside Commode # Voids 1 0 # Bowel Movements 1 0 - Labs CBC & Chem 7: 01/10/24 05:56 01/10/24 05:56 Labs: Abnormal Lab Results - Last 24 Hours (Table) 01/09/24 01/09/24 01/09/24 Range/Units 11:33 16:12 20:10 RBC (3.80-5.40) m/uL Hgb (11.4-16.0) gm/dL Hct (34.0-46.0) % MCHC (31.0-37.0) g/dL RDW (11.5-15.5) % Lymphocytes # (Manual) (1.0-4.8) k/uL Sodium (137-145) mmol/L BUN (7-17) mg/dL Creatinine (0.52-1.04) mg/dL Glucose (74-99) mg/dL POC Glucose (mg/dL) 155 H 119 H 143 H (70-110) mg/dL Alkaline Phosphatase (38-126) U/L Albumin (3.5-5.0) g/dL 01/10/24 01/10/24 01/10/24 Range/Units 05:56 05:56 06:04 RBC 2.95 L (3.80-5.40) m/uL Hgb 8.0 L (11.4-16.0) gm/dL Hct 27.3 L (34.0-46.0) % MCHC 29.3 L (31.0-37.0) g/dL RDW 18.0 H (11.5-15.5) % Lymphocytes # (Manual) 0.47 L (1.0-4.8) k/uL Sodium 136 L (137-145) mmol/L BUN 29 H (7-17) mg/dL Creatinine 3.10 H (0.52-1.04) mg/dL Glucose 174 H (74-99) mg/dL POC Glucose (mg/dL) 186 H (70-110) mg/dL Alkaline Phosphatase 178 H (38-126) U/L Albumin 3.3 L (3.5-5.0) g/dL Assessment and Plan Plan: Assessment: 1. Acute kidney injury secondary to ATN secondary to cardiorenal syndrome, sepsis, hemodialysis dependent. Permacath placed January 09, 2024. 2. Status post cardiac arrest. 3. Volume overload. Improved with ultrafiltration. 4. Chronic kidney disease stage IV with baseline creatinine 2-2.5 secondary to cardiorenal syndrome, sepsis. 5. Anemia of chronic kidney disease. On Aranesp. 6. Chronic kidney disease mineral bone disease maintained on PhosLo. Phosphorus level 5.5 dated January 04, 2024. 7. Diabetes mellitus. 8. Recent MRSA infection. On antibiotics. 9. Abdominal pain. Ultrasound showed gallbladder wall thickening. Surgery following. 10. Hypervolemic hyponatremia. Improved postdialysis. Plan: Currently seen while undergoing hemodialysis. Maintain torsemide. Monitor for renal recovery outpatient. Avoid morphine. Okay to use Dilaudid if needed. Antibiotics per ID. Augmentin upon discharge.
--- NOTE | 2024-01-10 10:58 | P.PN ---
Subjective Progress Note Date: 01/10/24 CHIEF COMPLAINT: Cardiac arrest HISTORY OF PRESENT ILLNESS: Surgical service following in regards to patient's abdominal pain and cholecystitis. Patient tolerating diet. She denies any abdominal pain at this time. She is currently getting hemodialysis. Afebrile. WBC 5.2 total bilirubin 0.7 AST 25 ALT 10 alk phos 178 PHYSICAL EXAM: VITAL SIGNS: Reviewed. GENERAL: no acute distress. ABDOMEN: Soft. Nondistended. Nontender NEUROLOGIC: awake and alert ASSESSMENT: 1. Acute on chronic cholecystitis 2. Chronic rectal prolapse 3. Acute PEA cardiac arrest on admission 4. History of coronary artery disease and cardiac stent in May PLAN: -No surgical intervention planned at this time due to cardiac issues and needing to complete 1 year of the dual antiplatelet therapy due to her cardiac stent in May 2023 -Continue low-fat diet Physician Environmental Restoration Planner note has been reviewed by physician. Signing provider agrees with the documented findings, assessment, and plan of care. Objective - Vital Signs Vital signs: Vital Signs Temp 97.3 F L 01/10/24 08:00 Pulse 75 01/10/24 08:00 Resp 18 01/10/24 08:00 BP 100/54 01/10/24 08:00 Pulse Ox 97 01/10/24 08:00 FiO2 40 01/05/24 17:00 Intake & Output 01/09/24 01/10/24 01/10/24 18:59 06:59 18:59 Intake Total 404 120 Balance 404 120 Weight 55.6 kg 58.7 kg Intake: IV 50 Oral 354 120 Other: Voiding Method Bedside Commode Bedside Commode Bedside Commode # Voids 1 0 # Bowel Movements 1 0 - Labs CBC & Chem 7: 01/10/24 05:56 01/10/24 05:56 Labs: Abnormal Lab Results - Last 24 Hours (Table) 01/09/24 01/09/24 01/09/24 Range/Units 11:33 16:12 20:10 RBC (3.80-5.40) m/uL Hgb (11.4-16.0) gm/dL Hct (34.0-46.0) % MCHC (31.0-37.0) g/dL RDW (11.5-15.5) % Lymphocytes # (Manual) (1.0-4.8) k/uL Sodium (137-145) mmol/L BUN (7-17) mg/dL Creatinine (0.52-1.04) mg/dL Glucose (74-99) mg/dL POC Glucose (mg/dL) 155 H 119 H 143 H (70-110) mg/dL Alkaline Phosphatase (38-126) U/L Albumin (3.5-5.0) g/dL 01/10/24 01/10/24 01/10/24 Range/Units 05:56 05:56 06:04 RBC 2.95 L (3.80-5.40) m/uL Hgb 8.0 L (11.4-16.0) gm/dL Hct 27.3 L (34.0-46.0) % MCHC 29.3 L (31.0-37.0) g/dL RDW 18.0 H (11.5-15.5) % Lymphocytes # (Manual) 0.47 L (1.0-4.8) k/uL Sodium 136 L (137-145) mmol/L BUN 29 H (7-17) mg/dL Creatinine 3.10 H (0.52-1.04) mg/dL Glucose 174 H (74-99) mg/dL POC Glucose (mg/dL) 186 H (70-110) mg/dL Alkaline Phosphatase 178 H (38-126) U/L Albumin 3.3 L (3.5-5.0) g/dL
[2024-01-10 11:28] LABS: Glucose,Whole Blood 184 mg/dL (70-110)
--- NOTE | 2024-01-10 12:06 | P.DS ---
Providers Date of admission: 01/03/24 14:09 Expected date of discharge: 01/10/24 Attending physician: Jesus Mina Consults: 01/03/24 14:07 Consult Physician Routine Consulting Provider: Janey Nunez Consult Reason/Comments: esrd Do you want consulting provider notified?: Yes Consult Physician Stat Consulting Provider: Breana Ayala Consult Reason/Comments: cardiac arrest Do you want consulting provider notified?: Already Contacted 01/03/24 16:31 Consult Physician Routine Consulting Provider: Israel Dale Consult Reason/Comments: hemodialysis catheter insertion Do you want consulting provider notified?: Already Contacted 01/08/24 15:06 Consult Physician Routine Consulting Provider: Yonas Marlow Consult Reason/Comments: abdominal pain Do you want consulting provider notified?: Already Contacted 01/08/24 15:28 Consult Physician Routine Consulting Provider: Francisco Javier Valencia Consult Reason/Comments: cardiac risk assessment Do you want consulting provider notified?: Yes 01/09/24 10:46 Consult Physician Routine Consulting Provider: Shawnee Subramanian Consult Reason/Comments: recent mrsa Do you want consulting provider notified?: Yes Primary care physician: Jesus Mina Hospital Course: HISTORY OF PRESENT ILLNESS: This is a 58-year-old female with a previous medical history significant for coronary artery disease status post PCI of the RCA 2023 with ischemic cardiomyopathy, hypertension and hypertensive cardiovascular disease, hyperlipidemia, diabetes mellitus type 2 uncontrolled, fracture of the right medial and lateral malleolus, anemia of chronic kidney disease, COPD, epistaxis, chronic kidney disease stage 4 due to cardiorenal syndrome she ended up getting started on dialysis on the last hospital admission about a month ago when she was admitted to the hospital with fluid overload and acute systolic heart failure and worsening renal failure despite aggressive diuresis, and using significant amount of diuretics, patient ended up going on dialysis she had a permanent catheter placed in the right internal jugular vein, and patient developed to have a significant MRSA bacteremia that required removal of the dialysis catheter and subsequently she was treated with IV antibiotic for a total I believe of 4 weeks of IV antibiotic in the form of daptomycin, patient blood cultures normalizes, the patient ended up having another permacatheter placed in the left internal jugular vein, and the patient was discharged to [facility] and she has been there she has been going to dialysis at [facility] and she has been doing fine apparently patient underwent dialysis yesterday, and she had pulled her dialysis catheter today she ended up coming to the ER for evaluation she was taken to the [facility] for replacement of the the left internal jugular catheter but the patient became quite agitated, and she went into pulseless electrical activity she did receive 2 epinephrine, she was intubated at the [facility], she was admitted to the ICU, she was admitted under my service, with consultation to Dr. Romo from intensive care unit, patient is currently being seen in the ICU, she is currently on the ventilator, she is sedated with Precedex, and had a chest x-ray in the ICU that showed evidence of significant pulmonary vascular congestion as well as bilateral pulmonary infiltrates, patient may have had aspirated, she will be started on Zosyn 3.375 g of piggyback every 8 hours as well as vancomycin pharmacy to dose its peak and trough, patient will have a sputum culture, blood culture, urine culture, and she will be seen in consultation by hospital superintendent, she will be seen in consultation by infectious disease Dr. Subramanian as well. 01/05: Patient is sitting up in a chair in no apparent distress, patient underwent hemodialysis she just had 4 L taken out, she continues to have significant restless leg syndrome and she has been getting ropinirole 2 mg at bedtime, we will continue to monitor the patient very closely, patient has been maintained on vancomycin as well as Zosyn for now, we will continue to monitor the patient very closely, monitor the culture, the plan is for the patient to be transferred back to [facility] when the patient is more stable. Likely the patient will be moved to monitored bed in the next 24 hours. 01/06: Send has significant restless leg overnight we will increase her ropinirole to 2 mg orally twice every day, monitor the patient very closely, patient is scheduled to go for hemodialysis tomorrow morning, urine culture showed evidence of Enterobacter cloacae that is resistant to a lot of antibiotic except for Zosyn which she is on sputum culture showed Lacy albicans which considered to be normal ananya, maintain the patient on current IV antibiotic, discontinue vancomycin and Zosyn tomorrow morning and start the patient on Augmentin 500/125 mg orally twice every day for the next 7 days. Patient most likely will be able to be discharged back to [facility] tomorrow morning. 01/07: Patient is sitting up in the chair in no apparent distress, she had dialysis today, she denies any chest pain, shortness of breath, she continues to have some swelling both lower extremities, she she did have significant amount of right upper quadrant abdominal pain that started 1:00 in the morning associate with nausea but no vomiting, and did have have abdominal x-ray did not show evidence of acute abnormalities, ultrasound of the abdomen showed evidence of increased thickness of the gallbladder with possible cholecystitis patient has been on Zosyn we will continue with that, patient was seen in consultation by general surgery it was recommended for the patient to have laparoscopic cholecystectomy after she is cleared by cardiology. 01/08: Patient will not be going for laparoscopic cholecystectomy as the patient is a high risk for surgery at this point in time, and the patient is aware of that, therefore the patient can be discharged back to [facility] in the next 24 hours after hemodialysis, patient is having some issues with bleeding from the abdominal wall where the heparin injection is given we will discontinue heparin injection completely, continue to apply pressure dressing, monitor the patient's hemoglobin over the next 24 hours, patient will be kept on Zosyn for now, hopefully she will be able to switch to oral Augmentin 500/125 mg orally twice every day for the next 7 days. 01/09: Patient is undergoing hemodialysis this morning. Plan is for patient to be discharged to subacute rehab once this is completed. Blood pressure 150/79, heart rate 83, pulse ox 98% on 2 L nasal cannula. Repeat blood work reveals hemoglobin of 8. BUN 29 creatinine 3.1. CBG running between 119 and 186. Chest x-ray reveals right sided double-lumen hemodialysis catheter tips at the cavoatrial junction. Interstitial densities persist but show improvement. General surgery is not planning for intervention regarding cholecystitis as cardiology requested that patient complete 1 year of dual antiplatelet therapy from the time of her cardiac stent placement in May 2023. Patient is to continue on a low-fat diet. Patient will be continued on hemodialysis Saturday schedule. Patient has been seen by infectious disease and pulmonary medicine. Plan is for Augmentin for possible aspiration pneumonitis at discharge. Patient will be discharged to subacute rehab today once all arrangements are completed. DISCHARGE DIAGNOSES: 1. Acute hypoxemic vent dependent respiratory failure due to cardiac arrest/pulseless electrical activity status post 2 epinephrine via ACLS protocol. 2. Acute on chronic systolic heart failure. 3. Acute hypoxemic respiratory failure due to cardiac arrest as well as possible aspiration pneumonia. 4. Coronary artery disease status post PCI of the RCA. 5. Hypertension and hypertensive cardiovascular disease. 6. Mixed hyperlipidemia. 7. Diabetes mellitus type 2. 8. Restless leg syndrome. 9. Anemia of chronic kidney disease. 10. Hypothyroidism. 11. COPD exacerbation, 12. Chronic hypoxemic respiratory failure due to combination of nonischemic cardiomyopathy and COPD. 13. Subacute fracture of the medial and lateral malleolus currently in boot no surgical intervention is planned 14. GERD. 15. Right upper quadrant abdominal pain likely related to dysfunctional gallbladder with cholelithiasis, no plan for surgical intervention at this time. 16. Wounds: Coccyx pressure ulcer stage I, left medial ankle stage II, right heel stage III. 17. Superficial abdominal wall bleeding likely related to heparin injection. [facility] after dialysis. Greater than 35 minutes was utilized and coordinating patient's discharge. Impression and plan of care have been directed as dictated by the signing physician. Lenore Busch nurse practitioner acting as scribe for signing physician. Patient Condition at Discharge: Serious Plan - Discharge Summary Discharge Rx Participant: No New Discharge Prescriptions: New Amoxic-Pot Clav 500-125 mg [Augmentin 500-125 mg] 1 each PO BID 5 Days tab Darbepoetin Frantz [Aranesp] 40 mcg SQ Q7D each Torsemide [Demadex] 40 mg PO DAILY tab Continue Ipratropium-Albuterol Nebulize [Duoneb 0.5 mg-3 mg/3 ml Soln] 3 ml INHALATION RT-Q6H PRN PRN Reason: Shortness Of Breath Insulin Lispro [humaLOG Kwikpen] See Protocol SQ AC-TID@08,12,16 Aspirin 81 mg PO DAILY@0800 Clopidogrel [Plavix] 75 mg PO DAILY@1000 Melatonin 5 mg PO HS@2000 rOPINIRole HCL [Requip] 2 mg PO HS@2000 hydrALAZINE HCL [Apresoline] 25 mg PO BID@0800,2000 Thiamine [Vitamin B-1] 100 mg PO DAILY@0800 Midodrine [ProAmatine] 5 mg PO BID@0800,1600 PRN PRN Reason: SBP<110 Gabapentin [Neurontin] 100 mg PO BID@0500,1700 Docusate [Colace] 100 mg PO BID@799,1999 Multivitamins, Thera [Multivitamin (formulary)] 1 tab PO DAILY@0800 Calcium Acetate [PhosLo] 667 mg PO TID-W/MEALS tab Levothyroxine Sodium [Synthroid] 75 mcg PO DAILY@0600 Atorvastatin [Lipitor] 40 mg PO HS@1999 Folic Acid 1 mg PO DAILY@0800 Pantoprazole [Protonix] 40 mg PO DAILY@0800 Changed HYDROcodone/APAP 7.5-325MG [Fillmore 7.5-325] 1 tab PO Q6H PRN #12 tab PRN Reason: MODERATE PAIN Discontinued ALPRAZolam [Xanax] 0.25 mg PO MOWEFR@0500 Furosemide [Lasix] 80 mg PO TID@0600,1399,1999 Discharge Medication List Ipratropium-Albuterol Nebulize [Duoneb 0.5 mg-3 mg/3 ml Soln] 3 ml INHALATION RT-Q6H PRN 10/09/23 [History] Multivitamins, Thera [Multivitamin (formulary)] 1 tab PO DAILY@0800 10/09/23 [History] Calcium Acetate [PhosLo] 667 mg PO TID-W/MEALS tab 10/21/23 [Rx] Insulin Lispro [humaLOG Kwikpen] See Protocol SQ AC-TID@08,12,16 11/21/23 [History] Levothyroxine Sodium [Synthroid] 75 mcg PO DAILY@0600 11/21/23 [History] Aspirin 81 mg PO DAILY@0800 01/03/24 [History] Atorvastatin [Lipitor] 40 mg PO HS@199901/03/24 [History] Clopidogrel [Plavix] 75 mg PO DAILY@1000 01/03/24 [History] Docusate [Colace] 100 mg PO BID@0800,199901/03/24 [History] Folic Acid 1 mg PO DAILY@0800 01/03/24 [History] Gabapentin [Neurontin] 100 mg PO BID@0500,1700 01/03/24 [History] Melatonin 5 mg PO HS@199901/03/24 [History] Midodrine [ProAmatine] 5 mg PO BID@0800,1600 PRN 01/03/24 [History] Pantoprazole [Protonix] 40 mg PO DAILY@0800 01/03/24 [History] Thiamine [Vitamin B-1] 100 mg PO DAILY@79901/03/24 [History] hydrALAZINE HCL [Apresoline] 25 mg PO BID@799,199901/03/24 [History] rOPINIRole HCL [Requip] 2 mg PO HS@199901/03/24 [History] Amoxic-Pot Clav 500-125 mg [Augmentin 500-125 mg] 1 each PO BID 5 Days tab 01/10/24 [Rx] Darbepoetin Frantz [Aranesp] 40 mcg SQ Q7D each 01/10/24 [Rx] HYDROcodone/APAP 7.5-325MG [Fillmore 7.5-325] 1 tab PO Q6H PRN #12 tab 01/10/24 [Rx] Torsemide [Demadex] 40 mg PO DAILY tab 01/10/24 [Rx] Discharge Disposition: TRANSFER TO SNF/ECF
--- NOTE | 2024-01-10 14:07 | P.PN ---
Subjective Progress Note Date: 01/10/24 Principal diagnosis: Cardiac arrest 58-year-old female patient, multiple medical problems including end-stage renal disease was on hemodialysis also known to have coronary artery disease with previous PCI and stenting of the RCA and known history of ischemic cardiomyopathy comes into the emergency department after losing her hemodialysis catheter. Apparently, her last hemodialysis session was on 01/02/2024. Based on that, the patient came in to ED and the patient was taken to [facility] for insertion of a new hemodialysis catheter. While in [facility], the patient was given fentanyl and during the procedure, the patient became pulseless. Details are not available. It was noted that the patient was in a PEA rhythm. The patient was given CPR, 2 rounds of epi, intubated and there was return of spontaneous circulation. Following that, the patient was kept intubated and she was transferred to the intensive care unit for further care. At this point in time, the patient is sedated on propofol and she is hemodynamically stable on no pressors. Her current vent setting includes AC of 14, tidal volume of 400, FiO2 100% and PEEP of 5. Patient was given a blood gas that showed a pH of 7.37 with a pCO2 of 49 and a pO2 of 63. Sodium is at 133, potassium is at 4.6, bicarb is 26 with a BUN of 47 and a creatinine of 3.58. LFTs showed alkaline phosphatase of 203. UA showing +2 protein, many WBCs, many bacteria, 49 RBCs, and the white cell count of 5.6 with a hemoglobin 8.2 and a platelet count of 228. Initial chest x-ray was within normal limits. Subsequent chest x-ray postintubation showed pulmonary edema. On a separate note, the patient was hospitalized in early November for sepsis. At that time, the blood culture was positive for MRSA and the patient was treated with vancomycin. She required removal of previously inserted dialysis catheter and she completed a total of 4 weeks course of IV antibiotics with daptomycin. Most recent blood cultures have been negative. On 01/04/2024, the patient remains intubated on mechanical ventilator. This morning, the patient on a propofol running at 45 mcg/kg/min. She remains intubated on the mechanical ventilator. Assist-control mode with rate of 14, tidal volume of 400, FiO2 50% with a PEEP of 5. Chest x-ray shows pulmonary edema. Blood gas shows a pH of 7.46 with a pCO2 of 39 and pO2 of 68. Cardiac rhythm is sinus. She is afebrile and hemodynamically stable. White cell count is 6.4 with a hemoglobin 7.2 and a platelet count of 200. Sodium levels at 132, BUN 52 with a creatinine of 3.4 and a potassium levels of 4.2. Remains on Zosyn and vancomycin. Blood cultures have been sent and results are still pending. Echocardiogram was also ordered. Doppler of the neck area revealed nonocclusive band of filling defect in the internal jugular vein that is thought to be representing a thrombus. This is corroborated to the previous catheter insertion. She remains on aspirin and Plavix. She remains on IV Zosyn and vancomycin for now. Urine output is minimal and Lasix will be discontinued. She is on no pressors for now. 01/05/2024, the patient is being seen for a follow-up. The patient remains intubated on mechanical ventilator. The patient underwent hemodialysis yesterday a total of 3 L of fluid and ultrafiltration was done. This morning's chest x-ray still showing to some residual pulmonary edema. The patient remains sedated on propofol which is running at 40 mcg/kg/min. She is on a mechanical ventilator on assist-control mode with rate of 14, tidal volume of 400, FiO2 of 40% with a PEEP of 5. Blood gas showed a pH of 7.44 with pCO2 44 and pO2 of 126. Minimal urine output at this point in time. Hemodynamically stable. Afebrile. Remains NPO. Home medications will be resumed. In addition, the patient is covered with IV Zosyn and vancomycin pending further cultures. The urine culture is positive for gram-negative bacillus at this point in time. Patient was seen today on 01/06/2024, patient remains in the ICU, she was extubated yesterday at 5 PM on 01/05/2024. Apparently the patient coded for about 4 minutes at the time she was brought into the ICU and she was having a left IJ catheter placement. The cath was basically for dialysis, and now she has a right femoral catheter. Patient is being treated for urinary tract infection secondary to Enterobacter, she is receiving Zosyn, patient seems to be doing well today, seems to be a bit slow, but overall she is doing well and she is on 2 L nasal cannula hemodynamically stable, not in any distress. WBC count is 4.6, hemoglobin 7.4 basic metabolic profile is normal BUN is 27 creatinine 2.14. Chest x-ray this morning showed mild interstitial pulmonary edema with small left pleural effusion and atelectasis Patient was evaluated today on 01/07/2024, patient is doing well, she was transferred yesterday out of the ICU, and now she is on 3 S. Patient is doing great, relatively asymptomatic, no active pulmonary symptoms, patient is being followed by nephrology and still undergoing hemodialysis. WBC count is 4.2 hemoglobin 7.6 electrolytes are normal BUN is 14 creatinine 1.84 chest x-ray yesterday showed some mild interstitial edema and small left pleural effusion with atelectasis. Patient was evaluated today on 01/08/2024, patient is doing well, receiving hemodialysis earlier this morning, she is on room air, she has some vague aches and pains. But overall seems to be doing well. WBC count is 6.1 hemoglobin 8.1 sodium is low at 126 BUN is 21 creatinine 2.54, that being addressed by nephrol fidel. Patient was again today on 01/09/2024, patient is doing well, no active pulmonary symptoms. Patient had another dialysis catheter placed in the right subclavian area placed by vascular surgery, and I believe her right groin dialysis catheter has been removed patient remains on hemodialysis. She has no cough no wheezing no shortness of breath, she has some vague right upper quadrant pain, on physical examination did not seem to be surgical. WBC count is 5.5 hemoglobin 7.5 electrolytes are normal BUN is 14 creatinine 1.98 Seen today on 01/10/2024, patient is doing great, asymptomatic, being considered for discharge home today after dialysis. I will clear the patient for discharge if cleared by other consultants. Objective - Vital Signs Vital signs: Vital Signs Temp 97.6 F 01/10/24 10:58 Pulse 83 01/10/24 10:58 Resp 18 01/10/24 10:58 BP 150/79 01/10/24 10:58 Pulse Ox 98 01/10/24 10:58 FiO2 40 01/05/24 17:00 Intake & Output 01/09/24 01/10/24 01/10/24 18:59 06:59 18:59 Intake Total 404 360 Balance 404 360 Weight 55.6 kg 58.7 kg Intake: IV 50 Oral 354 360 Other: Voiding Method Bedside Commode Bedside Commode Bedside Commode # Voids 1 0 # Bowel Movements 1 0 - Exam General: 58-year-old female on room air, not in any distress Head exam was generally normal. There was no scleral icterus or corneal arcus. Mucous membranes were moist. HEENT: Head is atraumatic, normocephalic, pupils were equal round , sclera nonicteric, conjunctivae were pale, moist mucous membranes. Right subclavian dialysis catheter is noted Neck: Supple, negative JVd, normal carotid upstroke bilaterally, no lymp hadenopathy. Chest: Symmetrical chest expansion, diminished breath sounds at the bases no crackles rhonchi or wheezes Heart: Normal S1-S2, 2/6 systolic murmur throughout the left lower sternal border Abdomen: Soft, minimal tenderness in the right upper quadrant area no megaly no rebound no guarding. Bowel sounds. Extremities: Plus bipedal edema Neurologic examination: Alert and oriented x 3 no gross focal deficit Examination of the skin revealed no rashes. - Labs CBC & Chem 7: 01/10/24 05:56 01/10/24 05:56 Labs: Abnormal Lab Results - Last 24 Hours (Table) 01/09/24 01/09/24 01/10/24 Range/Units 16:12 20:10 05:56 RBC 2.95 L (3.80-5.40) m/uL Hgb 8.0 L (11.4-16.0) gm/dL Hct 27.3 L (34.0-46.0) % MCHC 29.3 L (31.0-37.0) g/dL RDW 18.0 H (11.5-15.5) % Lymphocytes # (Manual) 0.47 L (1.0-4.8) k/uL Sodium (137-145) mmol/L BUN (7-17) mg/dL Creatinine (0.52-1.04) mg/dL Glucose (74-99) mg/dL POC Glucose (mg/dL) 119 H 143 H (70-110) mg/dL Alkaline Phosphatase (38-126) U/L Albumin (3.5-5.0) g/dL 01/10/24 01/10/24 01/10/24 Range/Units 05:56 06:04 11:18 RBC (3.80-5.40) m/uL Hgb (11.4-16.0) gm/dL Hct (34.0-46.0) % MCHC (31.0-37.0) g/dL RDW (11.5-15.5) % Lymphocytes # (Manual) (1.0-4.8) k/uL Sodium 136 L (137-145) mmol/L BUN 29 H (7-17) mg/dL Creatinine 3.10 H (0.52-1.04) mg/dL Glucose 174 H (74-99) mg/dL POC Glucose (mg/dL) 186 H 184 H (70-110) mg/dL Alkaline Phosphatase 178 H (38-126) U/L Albumin 3.3 L (3.5-5.0) g/dL Assessment and Plan Assessment: Impression: Acute PEA cardiac arrest, required brief CPR, intubation mechanical ventilation. End-stage disease on hemodialysis MRSA septicemia, treated with subsequent clearing of the blood cultures in early November 2023 Acute hypoxic respiratory failure secondary to above. 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 Cleared for discharge today Time with Patient: Less than 30
[2024-01-10] MEDS: AMOXIC-POT CLAV 500-125 MG 1 EACH TAB PO SCH (14:18)
--- NOTE | 2024-01-10 15:23 | P.PN ---
Subjective Progress Note Date: 01/10/24 Principal diagnosis: Reason for follow-up is recent MRSA bacteremia and possible cholecystitis Patient is a 58-year-old female with a past medical history significant for diabetes mellitus hypertension hyperlipidemia end-stage renal disease on dialysis recently treated for MRSA bacteremia related to the dialysis catheter which has been discontinued now being admitted to the hospital after apparently patient pulled out her dialysis catheter and subsequently did have a cardiac arrest during placement of the new catheter. On today's evaluation that is 01/10/2024,the patient remains to be afebrile, patient is on 2 L nasal cannula supplemental oxygen and denies any shortness of breath no chest pain or cough.Patient denies having any nausea or vomiting, no abdominal pain and no diarrhea has been reported, patient mention feeling better wants to go back to rehab. The patient white count is 5.2, creatinine 3.10 blood culture has been negative Objective - Vital Signs Vital signs: Vital Signs Temp 97.6 F 01/10/24 10:58 Pulse 83 01/10/24 10:58 Resp 18 01/10/24 10:58 BP 150/79 01/10/24 10:58 Pulse Ox 98 01/10/24 10:58 FiO2 40 01/05/24 17:00 Intake & Output 01/09/24 01/10/24 01/10/24 18:59 06:59 18:59 Intake Total 404 120 Balance 404 120 Weight 55.6 kg 58.7 kg Intake: IV 50 Oral 354 120 Other: Voiding Method Bedside Commode Bedside Commode Bedside Commode # Voids 1 0 # Bowel Movements 1 0 - Exam GENERAL DESCRIPTION: Middle-aged female up in bed in no distress RESPIRATORY SYSTEM: Unlabored breathing , decreased breath sounds at bases HEART: S1 S2 regular rate and rhythm , ABDOMEN: Soft , no tenderness EXTREMITIES: No edema feet - Labs CBC & Chem 7: 01/10/24 05:56 01/10/24 05:56 Labs: Abnormal Lab Results - Last 24 Hours (Table) 01/09/24 01/09/24 01/10/24 Range/Units 16:12 20:10 05:56 RBC 2.95 L (3.80-5.40) m/uL Hgb 8.0 L (11.4-16.0) gm/dL Hct 27.3 L (34.0-46.0) % MCHC 29.3 L (31.0-37.0) g/dL RDW 18.0 H (11.5-15.5) % Lymphocytes # (Manual) 0.47 L (1.0-4.8) k/uL Sodium (137-145) mmol/L BUN (7-17) mg/dL Creatinine (0.52-1.04) mg/dL Glucose (74-99) mg/dL POC Glucose (mg/dL) 119 H 143 H (70-110) mg/dL Alkaline Phosphatase (38-126) U/L Albumin (3.5-5.0) g/dL 01/10/24 01/10/24 01/10/24 Range/Units 05:56 06:04 11:18 RBC (3.80-5.40) m/uL Hgb (11.4-16.0) gm/dL Hct (34.0-46.0) % MCHC (31.0-37.0) g/dL RDW (11.5-15.5) % Lymphocytes # (Manual) (1.0-4.8) k/uL Sodium 136 L (137-145) mmol/L BUN 29 H (7-17) mg/dL Creatinine 3.10 H (0.52-1.04) mg/dL Glucose 174 H (74-99) mg/dL POC Glucose (mg/dL) 186 H 184 H (70-110) mg/dL Alkaline Phosphatase 178 H (38-126) U/L Albumin 3.3 L (3.5-5.0) g/dL Assessment and Plan (1) History of MRSA infection Current Visit: Yes Status: Acute Code(s): Z86.14 - PERSONAL HISTORY OF METHICILLIN RESIS STAPH INFECTION SNOMED Code(s): 688189699 (2) Type 2 diabetes mellitus with foot ulcer Current Visit: No Status: Acute Code(s): E11.621 - TYPE 2 DIABETES MELLITUS WITH FOOT ULCER; L97.509 - NON-PRESSURE CHRONIC ULCER OTH PRT UNSP FOOT W UNSP SEVERITY SNOMED Code(s): 9331233437666 Plan: 1patient recently did have a dialysis catheter infection with MRSA bacteremia patient has clear her bacteremia on her last visit no being readmitted to hospital after pending the patient pulled out her dialysis catheter subsequently did have a cardiac arrest while placement of another dialysis catheter patient did have a blood culture done this admission on 01/03/2024 that has been negative patient has been afebrile and did have normal white count meaning adequate treatment of underlying previous MRSA bacteremia and no need for further vancomycin which has been discontinued. 2patient is also on Zosyn with initial concern for possible aspiration pneumonitis chest x-ray has been mostly fluid overload with the ultrasound suspicious for cholecystitis May transition Zosyn to short course of Augmentin on discharge. 3-patient did have a right heel diabetic foot ulcer which seem to have reopened but no significant cellulitis recommend local wound care with the dry Aquacel dressing change every 48 hour and keep the area of the pressure Dictation was produced using [employer] dictation software. please excuse any grammatical, word or spelling errors. Time with Patient: Less than 30
--- NOTE | 2024-01-10 16:34 | P.PN ---
Subjective Progress Note Date: 01/10/24 HISTORY OF PRESENT ILLNESS: This is a 58-year-old female with a previous medical history signif icant for coronary artery disease status post PCI of the RCA 2023 with ischemic cardiomyopathy, hypertension and hypertensive cardiovascular disease, hyperlipidemia, diabetes mellitus type 2 uncontrolled, fracture of the right medial and lateral malleolus, anemia of chronic kidney disease, COPD, epistaxis, chronic kidney disease stage 4 due to cardiorenal syndrome she ended up getting started on dialysis on the last hospital admission about a month ago when she was admitted to the hospital with fluid overload and acute systolic heart failure and worsening renal failure despite aggressive diuresis, and using significant amount of diuretics, patient ended up going on dialysis she had a permanent catheter placed in the right internal jugular vein, and patient developed to have a significant MRSA bacteremia that required removal of the dialysis catheter and subsequently she was treated with IV antibiotic for a total I believe of 4 weeks of IV antibiotic in the form of daptomycin, patient b lood cultures normalizes, the patient ended up having another permacatheter placed in the left internal jugular vein, and the patient was discharged to [facility] and she has been there she has been going to dialysis at [facility] and she has been doing fine apparently patient underwent dialysis yesterday, and she had pulled her dialysis catheter today she ended up coming to the ER for evaluation she was taken to the [facility] for replacement of the the left internal jugular catheter but the patient became quite agitated, and she went into pulseless electrical activity she did receive 2 epinephrine, she was intubated at the [facility], she was admitted to the ICU, she was admitted under my service, with consultation to Dr. Romo from intensive care unit, patient is currently being seen in the ICU, she is currently on the ventilator, she is sedated with Precedex, and had a chest x-ray in the ICU that showed evidence of significant pulmonary vascular congestion as well as bilateral pulmonary infiltrates, patient may have had aspirated, she will be started on Zosyn 3.375 g of piggyback every 8 hours as well as vancomycin pharmacy to dose its peak and trough, patient will have a sputum culture, blood culture, urine culture, and she will be seen in consultation by steel welder, she will be seen in consultation by infectious disease Dr. Subramanian as well. 01/05: Patient is sitting up in a chair in no apparent distress, patient underwent hemodialysis she just had 4 L taken out, she continues to have significant restless leg syndrome and she has been getting ropinirole 2 mg at bedtime, we will continue to monitor the patient very closely, patient has been maintained o n vancomycin as well as Zosyn for now, we will continue to monitor the patient very closely, monitor the culture, the plan is for the patient to be transferred back to [facility] when the patient is more stable. Likely the patient will be moved to monitored bed in the next 24 hours. 01/06: Send has significant restless leg overnight we will increase her ropinirole to 2 mg orally twice every day, monitor the patient very closely, patient is scheduled to go for hemodialysis tomorrow morning, urine culture showed evidence of Enterobacter cloacae that is resistant to a lot of antibiotic except for Zosyn which she is on sputum culture showed Lacy albicans which considered to be normal ananya, maintain the patient on current IV antibiotic, discontinue vancomycin and Zosyn tomorrow morning and start the patient on Augmentin 500/125 mg orally twice every day for the next 7 days. Patient most likely will be able to be discharged back to [facility] tomorrow morning. 01/07: Patient is sitting up in the chair in no apparent distress, she had dialysis today, she denies any chest pain, shortness of breath, she continues to have some swelling both lower extremities, she she did have significant amount of right upper quadrant abdominal pain that started 1:00 in the morning associate with nausea but no vomiting, and did have have abdominal x-ray did not show evidence of acute abnormalities, ultrasound of the abdomen showed evidence of increased thickness of the gallbladder with possible cholecystitis patient has been on Zosyn we will continue with that, patient was seen in consultation by general surgery it was recommended for the patient to have laparoscopic cholecystectomy after she is cleared by cardiology. 01/08: Patient will not be going for laparoscopic cholecystectomy as the patient is a high risk for surgery at this point in time, and the patient is aware of that, therefore the patient can be discharged back to [facility] in the next 24 hours after hemodialysis, patient is having some issues with bleeding from the abdominal wall where the heparin injection is given we will discontinue heparin injection completely, continue to apply pressure dressing, monitor the patient's hemoglobin over the next 24 hours, patient will be kept on Zosyn for now, hopefully she will be able to switch to oral Augmentin 500/125 mg orally twice every day for the next 7 days. 01/09: Patient sitting up in a chair in no apparent distress, she feels itchy in her back, her bleeding in the abdomen stopped after stopping heparin, she did have dialysis today, she did have 3 L removed, patient's unfortunately did not get the prior authorization for her to go back to [facility] therefore she is staying in the hospital for Saturday, continue current treatment plan, discontinue IV antibiotic, continue Augmentin 500/125 mg orally twice every day for the next 7 days, patient will likely be discharged on Saturday. REVIEW OF SYSTEMS: Constitutional: No documented fever, no chills, no night sweats. No weight change. No weakness, fatigue or lethargy. No daytime sleepiness. EENT: No headache. No blurred vision or double vision, no loss of vision. No loss of Hearing, no ringing in the ears, no dizziness. No nasal drainage or congestion. No epistaxis. No sore throat. Lungs: No shortness of breath, no cough, no sputum production. No wheezing. Reports dyspnea with activity. Cardiovascular: No chest pain, no lower extremity edema. No palpitations. No paroxysmal nocturnal dyspnea. No orthopnea. No lightheadedness or dizziness. No syncopal episodes. Abdominal: Reports no abdominal pain. No nausea, vomiting. No diarrhea. No constipation. No bloody or tarry stools reports loss of appetite. Genitourinary: No dysuria, increased frequency, urgency. No urinary retention. [place] catheter in place. Musculoskeletal: No myalgias. No muscle weakness, positive for gait dysfunction, no frequent falls. No back pain. No neck pain. Integumentary: Right heel wound appears to have a clean base no lesions. No rash or pruritus. No unusual bruising. No change in hair or nails. Neurologic: No aphasia. No facial droop. No change in mentation. No head injury. No headache. No paralysis. No paresthesia. Psychiatric: No depression. No anxiety. No mood swings. Endocrine: No abnormal blood sugars. No weight change. PHYSICAL EXAMINATION: General: 58-year-old female sitting up in bed in no apparent distress. HEENT: Head is atraumatic, normocephalic, pupils were equal round , sclera nonicteric, conjunctivae were pale, mucous membranes of the mouth are somewhat dry. Neck: Supple, Increased JVP, normal carotid upstroke bilaterally, no lymphadenopathy. Chest: Decreased breath sounds at the bases, few rhonchi, moderate minimal expiratory wheezes, no chest wall tenderness, moderate intercostal retractions. Heart: First heart sound is normal, second heart sound is normal there is systolic ejection murmur 2/6 located in the left sternal border. Abdomen: Soft, nontender, nondistended, positive bowel sounds increased abdominal wall edema. Extremities: There is +2 edema no calf tenderness DP +1 bilaterally. Right heel wound about 3.5 x 4.1 x 0.5 cm with minimal fibrinous cap Neurologic examination: Patient is awake alert and oriented x 3, cranial nerves III to XII appear gross intact, muscle power for 4 out of 5 in bilateral upper extremities and 3 out of 5 in the bilateral lower extremities. ASSESSMENT AND PLAN: 1. Acute hypoxemic vent dependent respiratory failure due to cardiac arrest/pulseless electrical activity status post 2 epinephrine via ACLS protocol. Patient since was extubated and she is currently maintained on 2 L nasal cannula. 2. Acute on chronic systolic heart failure. Continue with hemodialysis Saturday and Saturday, monitor the patient input and output and daily weight continue hydralazine 25 mg orally twice every day. 3. Acute hypoxemic respiratory failure due to cardiac arrest as well as possible aspiration pneumonia. Continue patient on Augmentin 500/125 mg orally twice every day continue pulmonary toileting. 4. Coronary artery disease status post PCI of the RCA. Continue patient on aspirin 81 mg once every day, Plavix 75 mg once every day, atorvastatin 40 mg orally once every day. 5. Hypertension and hypertensive cardiovascular disease. Continue hydralazine 25 mg orally twice every day, monitor the patient blood pressure very closely. 6. Mixed hyperlipidemia. Continue patient on atorvastatin 40 mg orally once every day, monitor lipid panel, keep LDL 55-70. 7. Diabetes mellitus type 2. Continue patient on sliding scale insulin. 8. Close leg syndrome. Continue ropinirole 2 mg orally once at bedtime. 9. Anemia of chronic kidney disease. Continue to monitor the patient CBC. 10. Hypothyroidism. Continue levothyroxine 75 mcg orally once every day. 11. COPD exacerbation continue patient on DuoNeb 3 mm laceration 4 times every day, continue oxygen 2 L nasal cannula, pulmonary is following. 12. Chronic hypoxemic respiratory failure due to combination of ischemic cardiomyopathy and COPD. Continue treatment as in the first and second paragraph. 13. Subacute fracture of the medial and lateral malleolus currently in boot no surgical intervention is planned 14. GERD. Continue pantoprazole 40 mg orally once every day. 15. DVT prophylaxis. Heparin was discontinued due to abdominal wall bleeding. 16. right upper quadrant abdominal pain likely related to dysfunctional gallbladder with cholelithiasis. Patient is a high surgical risk therefore no surgery is contemplated. 17. Medical debility. Continue with physical therapy and Occupational Therapy evaluation, the plan is to transfer the patient back to [facility] 18. Right foot wound cleanse the wound with saline and apply Aquacel silver and cover with Optifoam change dressing Saturday and Saturday. 19. Superficial abdominal wall bleeding likely related to heparin injection. Discontinue heparin completely continue apply pressure dressing. 20. [facility] hopefully on Saturday. Objective - Vital Signs Vital signs: Vital Signs Temp 98 F 01/10/24 14:23 Pulse 85 01/10/24 14:23 Resp 18 01/10/24 14:23 BP 143/80 01/10/24 14:23 Pulse Ox 98 01/10/24 10:58 FiO2 40 01/05/24 17:00 Intake & Output 01/09/24 01/10/24 01/10/24 18:59 06:59 18:59 Intake Total 404 760 Output Total 6400 Balance 404 -5640 Weight 55.6 kg 58.7 kg Intake: IV 50 Oral 354 360 Hemodialysis 400 Output: Hemodialysis 3400 Hemodialysis Net Amount 3000 Other: Voiding Method Bedside Commode Bedside Commode Bedside Commode # Voids 1 0 0 # Bowel Movements 1 0 2 - Labs CBC & Chem 7: 01/10/24 05:56 01/10/24 05:56 Labs: Abnormal Lab Results - Last 24 Hours (Table) 01/09/24 01/10/24 01/10/24 Range/Units 20:10 05:56 05:56 RBC 2.95 L (3.80-5.40) m/uL Hgb 8.0 L (11.4-16.0) gm/dL Hct 27.3 L (34.0-46.0) % MCHC 29.3 L (31.0-37.0) g/dL RDW 18.0 H (11.5-15.5) % Lymphocytes # (Manual) 0.47 L (1.0-4.8) k/uL Sodium 136 L (137-145) mmol/L BUN 29 H (7-17) mg/dL Creatinine 3.10 H (0.52-1.04) mg/dL Glucose 174 H (74-99) mg/dL POC Glucose (mg/dL) 143 H (70-110) mg/dL Alkaline Phosphatase 178 H (38-126) U/L Albumin 3.3 L (3.5-5.0) g/dL 01/10/24 01/10/24 Range/Units 06:04 11:18 RBC (3.80-5.40) m/uL Hgb (11.4-16.0) gm/dL Hct (34.0-46.0) % MCHC (31.0-37.0) g/dL RDW (11.5-15.5) % Lymphocytes # (Manual) (1.0-4.8) k/uL Sodium (137-145) mmol/L BUN (7-17) mg/dL Creatinine (0.52-1.04) mg/dL Glucose (74-99) mg/dL POC Glucose (mg/dL) 186 H 184 H (70-110) mg/dL Alkaline Phosphatase (38-126) U/L Albumin (3.5-5.0) g/dL
[2024-01-10 16:50] LABS: Glucose,Whole Blood 261 mg/dL (70-110)
[2024-01-10 20:10] LABS: Glucose,Whole Blood 148 mg/dL (70-110)
[2024-01-10] MEDS ORDERED: VANCOMYCIN 1,000 MG in SODIUM CHLORIDE 0.9% 250 ML IVPB ONE (21:00)
[2024-01-10] MEDS: HYDROcodone/APAP 5-325MG 1 EACH TAB PO PRN (21:55)
[2024-01-11] MEDS: PANTOPRAZOLE 40 MG TABLET PO SCH (04:53)
[2024-01-11 06:09] LABS: Glucose,Whole Blood 199 mg/dL (70-110)
[2024-01-11 07:58] LABS: ALT 10 U/L (4-34); AST 24 U/L (14-36); African American GFR (CKD) 25 (>60 ml/min/1.73 sqM); Albumin 3.5 g/dL (3.5-5.0); Alkaline Phosphatase 182 U/L (38-126); Anion Gap 9 mmol/L; Blood Urea Nitrogen 25 mg/dL (7-17); Calcium 8.9 mg/dL (8.4-10.2); Carbon Dioxide 29 mmol/L (22-30); Chloride 97 mmol/L (98-107); Glucose 157 mg/dL (74-99); Non-African American GFR(CKD) 22 (>60 ml/min/1.73 sqM); Potassium 4.5 mmol/L (3.5-5.1); Sodium 135 mmol/L (137-145); Total Bilirubin 0.7 mg/dL (0.2-1.3)
[2024-01-11 08:34] LABS: Anisocytosis Slight; HCT 27.8 % (34.0-46.0); HGB 7.9 gm/dL (11.4-16.0); Hypochromasia Marked; MCH 26.5 pg (25.0-35.0); MCHC 28.5 g/dL (31.0-37.0); Mean Platelet Volume 9.8; Platelet Count 265 k/uL (150-450); Poikilocytosis Slight; RBC 2.99 m/uL (3.80-5.40); RDW 18.2 % (11.5-15.5); WBC 4.9 k/uL (3.8-10.6)
--- NOTE | 2024-01-11 08:57 | P.PN ---
Subjective Progress Note Date: 01/11/24 Patient feels well. She has had minimal rectal prolapse. She has no significant abdominal pain. On exam vital signs appear stable. Abdomen soft. History of rectal prolapse and chronic cholecystitis. Patient is stable for discharge from surgical standpoint. We will plan for outpatient management of the surgical problems. Objective - Vital Signs Vital signs: Vital Signs Temp 97.6 F 01/11/24 04:00 Pulse 74 01/11/24 04:00 Resp 18 01/11/24 04:00 BP 105/63 01/11/24 04:00 Pulse Ox 95 01/11/24 04:00 FiO2 40 01/05/24 17:00 Intake & Output 01/10/24 01/11/24 01/11/24 18:59 06:59 18:59 Intake Total 760 Output Total 6400 Balance -5640 Weight 56.4 kg Intake: Oral 360 Hemodialysis 400 Output: Hemodialysis 3400 Hemodialysis Net Amount 3000 Other: Voiding Method Bedside Commode Bedside Commode # Voids 0 0 # Bowel Movements 2 1 - Labs CBC & Chem 7: 01/11/24 06:37 01/11/24 06:37 Labs: Abnormal Lab Results - Last 24 Hours (Table) 01/10/24 01/10/24 01/10/24 Range/Units 05:56 11:18 16:48 RBC (3.80-5.40) m/uL Hgb (11.4-16.0) gm/dL Hct (34.0-46.0) % MCHC (31.0-37.0) g/dL RDW (11.5-15.5) % Lymphocytes # (Manual) 0.47 L (1.0-4.8) k/uL Sodium (137-145) mmol/L Chloride (98-107) mmol/L BUN (7-17) mg/dL Creatinine (0.52-1.04) mg/dL Glucose (74-99) mg/dL POC Glucose (mg/dL) 184 H 261 H (70-110) mg/dL Alkaline Phosphatase (38-126) U/L 01/10/24 01/11/24 01/11/24 Range/Units 20:09 06:08 06:37 RBC 2.99 L (3.80-5.40) m/uL Hgb 7.9 L (11.4-16.0) gm/dL Hct 27.8 L (34.0-46.0) % MCHC 28.5 L (31.0-37.0) g/dL RDW 18.2 H (11.5-15.5) % Lymphocytes # (Manual) (1.0-4.8) k/uL Sodium (137-145) mmol/L Chloride (98-107) mmol/L BUN (7-17) mg/dL Creatinine (0.52-1.04) mg/dL Glucose (74-99) mg/dL POC Glucose (mg/dL) 148 H 199 H (70-110) mg/dL Alkaline Phosphatase (38-126) U/L 01/11/24 Range/Units 06:37 RBC (3.80-5.40) m/uL Hgb (11.4-16.0) gm/dL Hct (34.0-46.0) % MCHC (31.0-37.0) g/dL RDW (11.5-15.5) % Lymphocytes # (Manual) (1.0-4.8) k/uL Sodium 135 L (137-145) mmol/L Chloride 97 L (98-107) mmol/L BUN 25 H (7-17) mg/dL Creatinine 2.35 H (0.52-1.04) mg/dL Glucose 157 H (74-99) mg/dL POC Glucose (mg/dL) (70-110) mg/dL Alkaline Phosphatase 182 H (38-126) U/L
[2024-01-11 09:22] LABS: Band Neutrophils % 1 %; Eosinophils # (M) 0.29 k/uL (0-0.7); Lymphocytes # (M) 0.64 k/uL (1.0-4.8); Monocytes # (M) 0.49 k/uL (0-1.0); Neutrophils % (M) 69 %; Nucleated Red Blood Cells 0 /100 WBC (0-0); Total Cells Counted 200
[2024-01-11 09:25] LABS: Rouleaux Present
--- NOTE | 2024-01-11 10:12 | P.PN ---
Subjective Patient is seen in follow-up for acute kidney injury, hemodialysis dependent. No problems with dialysis yesterday. On nasal cannula. Hemodynamically stable. No active complaints today. Wants to be discharged. Vital signs are stable. General: No acute distress. HEENT: On nasal cannula. LUNGS: No audible rhonchi or wheezes. HEART: Rate and Rhythm are regular. ABDOMEN: No distention. EXTREMITITES: 1+ edema. Objective - Vital Signs Vital signs: Vital Signs Temp 97.5 F L 01/11/24 08:00 Pulse 74 01/11/24 08:00 Resp 18 01/11/24 08:00 BP 148/80 01/11/24 08:00 Pulse Ox 98 01/11/24 08:00 FiO2 40 01/05/24 17:00 Intake & Output 01/10/24 01/11/24 01/11/24 18:59 06:59 18:59 Intake Total 760 Output Total 6400 Balance -5640 Weight 56.4 kg Intake: Oral 360 Hemodialysis 400 Output: Hemodialysis 3400 Hemodialysis Net Amount 3000 Other: Voiding Method Bedside Commode Bedside Commode # Voids 0 0 # Bowel Movements 2 1 - Labs CBC & Chem 7: 01/11/24 06:37 01/11/24 06:37 Labs: Abnormal Lab Results - Last 24 Hours (Table) 01/10/24 01/10/24 01/10/24 Range/Units 11:18 16:48 20:09 RBC (3.80-5.40) m/uL Hgb (11.4-16.0) gm/dL Hct (34.0-46.0) % MCHC (31.0-37.0) g/dL RDW (11.5-15.5) % Lymphocytes # (Manual) (1.0-4.8) k/uL Sodium (137-145) mmol/L Chloride (98-107) mmol/L BUN (7-17) mg/dL Creatinine (0.52-1.04) mg/dL Glucose (74-99) mg/dL POC Glucose (mg/dL) 184 H 261 H 148 H (70-110) mg/dL Alkaline Phosphatase (38-126) U/L 01/11/24 01/11/24 01/11/24 Range/Units 06:08 06:37 06:37 RBC 2.99 L (3.80-5.40) m/uL Hgb 7.9 L (11.4-16.0) gm/dL Hct 27.8 L (34.0-46.0) % MCHC 28.5 L (31.0-37.0) g/dL RDW 18.2 H (11.5-15.5) % Lymphocytes # (Manual) 0.64 L (1.0-4.8) k/uL Sodium 135 L (137-145) mmol/L Chloride 97 L (98-107) mmol/L BUN 25 H (7-17) mg/dL Creatinine 2.35 H (0.52-1.04) mg/dL Glucose 157 H (74-99) mg/dL POC Glucose (mg/dL) 199 H (70-110) mg/dL Alkaline Phosphatase 182 H (38-126) U/L Assessment and Plan Plan: Assessment: 1. Acute kidney injury secondary to ATN secondary to cardiorenal syndrome, sepsis, hemodialysis dependent. Permacath placed January 09, 2024. 2. Status post cardiac arrest. 3. Volume overload. Improved with ultrafiltration. 4. Chronic kidney disease stage IV with baseline creatinine 2-2.5 secondary to cardiorenal syndrome, sepsis. 5. Anemia of chronic kidney disease. On Aranesp. 6. Chronic kidney disease mineral bone disease maintained on PhosLo. Phosphorus level 5.5 dated January 04, 2024. 7. Diabetes mellitus. 8. Recent MRSA infection. On antibiotics. 9. Abdominal pain. Ultrasound showed gallbladder wall thickening. Surgery following. 10. Hypervolemic hyponatremia. Improved postdialysis. Plan: Hemodialysis Saturday. Maintain torsemide. Monitor for renal recovery outpatient. Avoid morphine. Okay to use Dilaudid if needed. Antibiotics per ID. On Augmentin. Awaits discharge to rehab.
[2024-01-11 11:48] LABS: Glucose,Whole Blood 247 mg/dL (70-110)
--- NOTE | 2024-01-11 11:59 | P.PN ---
Subjective Progress Note Date: 01/11/24 Principal diagnosis: Cardiac arrest 58-year-old female patient, multiple medical problems including end-stage renal disease was on hemodialysis also known to have coronary artery disease with previous PCI and stenting of the RCA and known history of ischemic cardiomyopathy comes into the emergency department after losing her hemodialysis catheter. Apparently, her last hemodialysis session was on 01/02/2024. Based on that, the patient came in to ED and the patient was taken to [facility] for insertion of a new hemodialysis catheter. While in [facility], the patient was given fentanyl and during the procedure, the patient became pulseless. Details are not available. It was noted that the patient was in a PEA rhythm. The patient was given CPR, 2 rounds of epi, intubated and there was return of spontaneous circulation. Following that, the patient was kept intubated and she was transferred to the intensive care unit for further care. At this point in time, the patient is sedated on propofol and she is hemodynamically stable on no pressors. Her current vent setting includes AC of 14, tidal volume of 400, FiO2 100% and PEEP of 5. Patient was given a blood gas that showed a pH of 7.37 with a pCO2 of 49 and a pO2 of 63. Sodium is at 133, potassium is at 4.6, bicarb is 26 with a BUN of 47 and a creatinine of 3.58. LFTs showed alkaline phosphatase of 203. UA showing +2 protein, many WBCs, many bacteria, 49 RBCs, and the white cell count of 5.6 with a hemoglobin 8.2 and a platelet count of 228. Initial chest x-ray was within normal limits. Subsequent chest x-ray postintubation showed pulmonary edema. On a separate note, the patient was hospitalized in early November for sepsis. At that time, the blood culture was positive for MRSA and the patient was treated with vancomycin. She required removal of previously inserted dialysis catheter and she completed a total of 4 weeks course of IV antibiotics with daptomycin. Most recent blood cultures have been negative. On 01/04/2024, the patient remains intubated on mechanical ventilator. This morning, the patient on a propofol running at 45 mcg/kg/min. She remains intubated on the mechanical ventilator. Assist-control mode with rate of 14, tidal volume of 400, FiO2 50% with a PEEP of 5. Chest x-ray shows pulmonary edema. Blood gas shows a pH of 7.46 with a pCO2 of 39 and pO2 of 68. Cardiac rhythm is sinus. She is afebrile and hemodynamically stable. White cell count is 6.4 with a hemoglobin 7.2 and a platelet count of 200. Sodium levels at 132, BUN 52 with a creatinine of 3.4 and a potassium levels of 4.2. Remains on Zosyn and vancomycin. Blood cultures have been sent and results are still pending. Echocardiogram was also ordered. Doppler of the neck area revealed nonocclusive band of filling defect in the internal jugular vein that is thought to be representing a thrombus. This is corroborated to the previous catheter insertion. She remains on aspirin and Plavix. She remains on IV Zosyn and vancomycin for now. Urine output is minimal and Lasix will be discontinued. She is on no pressors for now. 01/05/2024, the patient is being seen for a follow-up. The patient remains intubated on mechanical ventilator. The patient underwent hemodialysis yesterday a total of 3 L of fluid and ultrafiltration was done. This morning's chest x-ray still showing to some residual pulmonary edema. The patient remains sedated on propofol which is running at 40 mcg/kg/min. She is on a mechanical ventilator on assist-control mode with rate of 14, tidal volume of 400, FiO2 of 40% with a PEEP of 5. Blood gas showed a pH of 7.44 with pCO2 44 and pO2 of 126. Minimal urine output at this point in time. Hemodynamically stable. Afebrile. Remains NPO. Home medications will be resumed. In addition, the patient is covered with IV Zosyn and vancomycin pending further cultures. The urine culture is positive for gram-negative bacillus at this point in time. Patient was seen today on 01/06/2024, patient remains in the ICU, she was extubated yesterday at 5 PM on 01/05/2024. Apparently the patient coded for about 4 minutes at the time she was brought into the ICU and she was having a left IJ catheter placement. The cath was basically for dialysis, and now she has a right femoral catheter. Patient is being treated for urinary tract infection secondary to Enterobacter, she is receiving Zosyn, patient seems to be doing well today, seems to be a bit slow, but overall she is doing well and she is on 2 L nasal cannula hemodynamically stable, not in any distress. WBC count is 4.6, hemoglobin 7.4 basic metabolic profile is normal BUN is 27 creatinine 2.14. Chest x-ray this morning showed mild interstitial pulmonary edema with small left pleural effusion and atelectasis Patient was evaluated today on 01/07/2024, patient is doing well, she was transferred yesterday out of the ICU, and now she is on 3 S. Patient is doing great, relatively asymptomatic, no active pulmonary symptoms, patient is being followed by nephrology and still undergoing hemodialysis. WBC count is 4.2 hemoglobin 7.6 electrolytes are normal BUN is 14 creatinine 1.84 chest x-ray yesterday showed some mild interstitial edema and small left pleural effusion with atelectasis. Patient was evaluated today on 01/08/2024, patient is doing well, receiving hemodialysis earlier this morning, she is on room air, she has some vague aches and pains. But overall seems to be doing well. WBC count is 6.1 hemoglobin 8.1 sodium is low at 126 BUN is 21 creatinine 2.54, that being addressed by nephrol fidel. Patient was again today on 01/09/2024, patient is doing well, no active pulmonary symptoms. Patient had another dialysis catheter placed in the right subclavian area placed by vascular surgery, and I believe her right groin dialysis catheter has been removed patient remains on hemodialysis. She has no cough no wheezing no shortness of breath, she has some vague right upper quadrant pain, on physical examination did not seem to be surgical. WBC count is 5.5 hemoglobin 7.5 electrolytes are normal BUN is 14 creatinine 1.98 Seen today on 01/10/2024, patient is doing great, asymptomatic, being considered for discharge home today after dialysis. I will clear the patient for discharge if cleared by other consultants. Seen today on 01/11/2024, patient did not end up getting discharged yesterday, apparently had issues with bed situation at [facility]. May still get discharged sometime today if authorization takes place, in the meantime patient is asymptomatic no cough no wheezing no shortness of breath. She is on room air, asymptomatic. Objective - Vital Signs Vital signs: Vital Signs Temp 97.5 F L 01/11/24 08:00 Pulse 74 01/11/24 08:00 Resp 18 01/11/24 08:00 BP 148/80 01/11/24 08:00 Pulse Ox 98 01/11/24 08:00 FiO2 40 01/05/24 17:00 Intake & Output 01/10/24 01/11/24 01/11/24 18:59 06:59 18:59 Intake Total 760 118 Output Total 6400 Balance -5640 118 Weight 56.4 kg Intake: Oral 360 118 Hemodialysis 400 Output: Hemodialysis 3400 Hemodialysis Net Amount 3000 Other: Voiding Method Bedside Commode Bedside Commode Bedside Commode # Voids 0 0 # Bowel Movements 2 1 - Exam General: 58-year-old female on room air, not in any distress Head exam was generally normal. There was no scleral icterus or corneal arcus. Mucous membranes were moist. HEENT: Head is atraumatic, normocephalic, pupils were equal round , sclera nonicteric, conjunctivae were pale, moist mucous membranes. Right subclavian dialysis catheter is noted Neck: Supple, negative JVd, normal carotid upstroke bilaterally, no lymphadenopathy. Chest: Symmetrical chest expansion, diminished breath sounds at the bases no crackles rhonchi or wheezes Heart: Normal S1-S2, 2/6 systolic murmur throughout the left lower sternal border Abdomen: Soft, minimal tenderness in the right upper quadrant area no megaly no rebound no guarding. Bowel sounds. Extremities: Plus bipedal edema Neurologic examination: Alert and oriented x 3 no gross focal deficit Examination of the skin revealed no rashes. - Labs CBC & Chem 7: 01/11/24 06:37 01/11/24 06:37 Labs: Abnormal Lab Results - Last 24 Hours (Table) 01/10/24 01/10/24 01/11/24 Range/Units 16:48 20:09 06:08 RBC (3.80-5.40) m/uL Hgb (11.4-16.0) gm/dL Hct (34.0-46.0) % MCHC (31.0-37.0) g/dL RDW (11.5-15.5) % Lymphocytes # (Manual) (1.0-4.8) k/uL Sodium (137-145) mmol/L Chloride (98-107) mmol/L BUN (7-17) mg/dL Creatinine (0.52-1.04) mg/dL Glucose (74-99) mg/dL POC Glucose (mg/dL) 261 H 148 H 199 H (70-110) mg/dL Alkaline Phosphatase (38-126) U/L 01/11/24 01/11/24 01/11/24 Range/Units 06:37 06:37 11:47 RBC 2.99 L (3.80-5.40) m/uL Hgb 7.9 L (11.4-16.0) gm/dL Hct 27.8 L (34.0-46.0) % MCHC 28.5 L (31.0-37.0) g/dL RDW 18.2 H (11.5-15.5) % Lymphocytes # (Manual) 0.64 L (1.0-4.8) k/uL Sodium 135 L (137-145) mmol/L Chloride 97 L (98-107) mmol/L BUN 25 H (7-17) mg/dL Creatinine 2.35 H (0.52-1.04) mg/dL Glucose 157 H (74-99) mg/dL POC Glucose (mg/dL) 247 H (70-110) mg/dL Alkaline Phosphatase 182 H (38-126) U/L Assessment and Plan Assessment: Impression: Acute PEA cardiac arrest, required brief CPR, intubation mechanical ventilation. End-stage disease on hemodialysis MRSA septicemia, treated with subsequent clearing of the blood cultures in early November 2023 Acute hypoxic respiratory failure secondary to above. Resolved was extubated on 01/05/2024 Congestion heart failure with preserved LV function Diabetes mellitus type 2 COPD Coronary artery disease with previous PCI and stenting of RCA Previous episodes of cardiac arrest back in July 2023 Hypertension Hyperlipidemia Chronic wounds in lower extremities History of rectal prolapse Recommendation: Cleared again for discharge whenever a bed is available Continue bronchodilators Will follow as needed Time with Patient: Less than 30
--- NOTE | 2024-01-11 12:27 | P.PN ---
Subjective Progress Note Date: 01/11/24 HISTORY OF PRESENT ILLNESS: This is a 58-year-old female with a previous medical history signif icant for coronary artery disease status post PCI of the RCA 2023 with ischemic cardiomyopathy, hypertension and hypertensive cardiovascular disease, hyperlipidemia, diabetes mellitus type 2 uncontrolled, fracture of the right medial and lateral malleolus, anemia of chronic kidney disease, COPD, epistaxis, chronic kidney disease stage 4 due to cardiorenal syndrome she ended up getting started on dialysis on the last hospital admission about a month ago when she was admitted to the hospital with fluid overload and acute systolic heart failure and worsening renal failure despite aggressive diuresis, and using significant amount of diuretics, patient ended up going on dialysis she had a permanent catheter placed in the right internal jugular vein, and patient developed to have a significant MRSA bacteremia that required removal of the dialysis catheter and subsequently she was treated with IV antibiotic for a total I believe of 4 weeks of IV antibiotic in the form of daptomycin, patient b lood cultures normalizes, the patient ended up having another permacatheter placed in the left internal jugular vein, and the patient was discharged to [facility] and she has been there she has been going to dialysis at [facility] [place] and she has been doing fine apparently patient underwent dialysis yesterday, and she had pulled her dialysis catheter today she ended up coming to the ER for evaluation she was taken to the [facility] for replacement of the the left internal jugular catheter but the patient became quite agitated, and she went into pulseless electrical activity she did receive 2 epinephrine, she was intubated at the [facility], she was admitted to the ICU, she was admitted under my service, with consultation to Dr. Romo from intensive care unit, patient is currently being seen in the ICU, she is currently on the ventilator, she is sedated with Precedex, and had a chest x-ray in the ICU that showed evidence of significant pulmonary vascular congestion as well as bilateral pulmonary infiltrates, patient may have had aspirated, she will be started on Zosyn 3.375 g of piggyback every 8 hours as well as vancomycin pharmacy to dose its peak and trough, patient will have a sputum culture, blood culture, urine culture, and she will be seen in consultation by visiting professor, she will be seen in consultation by infectious disease Dr. Subramanian as well. 01/05: Patient is sitting up in a chair in no apparent distress, patient underwent hemodialysis she just had 4 L taken out, she continues to have significant restless leg syndrome and she has been getting ropinirole 2 mg at bedtime, we will continue to monitor the patient very closely, patient has been maintained o n vancomycin as well as Zosyn for now, we will continue to monitor the patient very closely, monitor the culture, the plan is for the patient to be transferred back to [facility] when the patient is more stable. Likely the patient will be moved to monitored bed in the next 24 hours. 01/06: Send has significant restless leg overnight we will increase her ropinirole to 2 mg orally twice every day, monitor the patient very closely, patient is scheduled to go for hemodialysis tomorrow morning, urine culture showed evidence of Enterobacter cloacae that is resistant to a lot of antibiotic except for Zosyn which she is on sputum culture showed Lacy albicans which considered to be normal ananya, maintain the patient on current IV antibiotic, discontinue vancomycin and Zosyn tomorrow morning and start the patient on Augmentin 500/125 mg orally twice every day for the next 7 days. Patient most likely will be able to be discharged back to [facility] tomorrow morning. 01/07: Patient is sitting up in the chair in no apparent distress, she had dialysis today, she denies any chest pain, shortness of breath, she continues to have some swelling both lower extremities, she she did have significant amount of right upper quadrant abdominal pain that started 1:00 in the morning associate with nausea but no vomiting, and did have have abdominal x-ray did not show evidence of acute abnormalities, ultrasound of the abdomen showed evidence of increased thickness of the gallbladder with possible cholecystitis patient has been on Zosyn we will continue with that, patient was seen in consultation by general surgery it was recommended for the patient to have laparoscopic cholecystectomy after she is cleared by cardiology. 01/08: Patient will not be going for laparoscopic cholecystectomy as the patient is a high risk for surgery at this point in time, and the patient is aware of that, therefore the patient can be discharged back to [facility] in the next 24 hours after hemodialysis, patient is having some issues with bleeding from the abdominal wall where the heparin injection is given we will discontinue heparin injection completely, continue to apply pressure dressing, monitor the patient's hemoglobin over the next 24 hours, patient will be kept on Zosyn for now, hopefully she will be able to switch to oral Augmentin 500/125 mg orally twice every day for the next 7 days. 01/09: Patient sitting up in a chair in no apparent distress, she feels itchy in her back, her bleeding in the abdomen stopped after stopping heparin, she did have dialysis today, she did have 3 L removed, patient's unfortunately did not get the prior authorization for her to go back to [facility] therefore she is staying in the hospital for Saturday, continue current treatment plan, discontinue IV antibiotic, continue Augmentin 500/125 mg orally twice every day for the next 7 days, patient will likely be discharged on Saturday. 01/10: Patient is sitting up in a chair in no apparent distress, yesterday she was complaining some pain over the permacatheter is in the right IJ, has no fever or chills at this time, her pain medication was increased, she denies any abdominal pain, nausea vomiting or diarrhea at this time, she is tolerating her diet very well, she is awaiting the prior authorization from her insurance to go to [facility] hopefully on Saturday. REVIEW OF SYSTEMS: Constitutional: No documented fever, no chills, no night sweats. No weight change. No weakness, fatigue or lethargy. No daytime sleepiness. EENT: No headache. No blurred vision or double vision, no loss of vision. No loss of Hearing, no ringing in the ears, no dizziness. No nasal drainage or congestion. No epistaxis. No sore throat. Lungs: No shortness of breath, no cough, no sputum production. No wheezing. Reports dyspnea with activity. Cardiovascular: No chest pain, no lower extremity edema. No palpitations. No paroxysmal nocturnal dyspnea. No orthopnea. No lightheadedness or dizziness. No syncopal episodes. Abdominal: Reports no abdominal pain. No nausea, vomiting. No diarrhea. No constipation. No bloody or tarry stools reports loss of appetite. Genitourinary: No dysuria, increased frequency, urgency. No urinary retention. [place] catheter in place. Musculoskeletal: No myalgias. No muscle weakness, positive for gait dysfunction, no frequent falls. No back pain. No neck pain. Integumentary: Right heel wound appears to have a clean base no lesions. No rash or pruritus. No unusual bruising. No change in hair or nails. Neurologic: No aphasia. No facial droop. No change in mentation. No head injury. No headache. No paralysis. No paresthesia. Psychiatric: No depression. No anxiety. No mood swings. Endocrine: No abnormal blood sugars. No weight change. PHYSICAL EXAMINATION: General: 58-year-old female sitting up in bed in no apparent distress. HEENT: Head is atraumatic, normocephalic, pupils were equal round , sclera nonicteric, conjunctivae were pale, mucous membranes of the mouth are somewhat dry. Neck: Supple, Increased JVP, normal carotid upstroke bilaterally, no lymphadenopathy, right IJ catheter in place. Chest: Decreased breath sounds at the bases, few rhonchi, no expiratory wheezes, no chest wall tenderness, no intercostal retractions. Heart: First heart sound is normal, second heart sound is normal there is systolic ejection murmur 2/6 located in the left sternal border. Abdomen: Soft, nontender, nondistended, positive bowel sounds increased abdominal wall edema. Extremities: There is +1 edema no calf tenderness DP +1 bilaterally. Right heel wound about 3.5 x 4.1 x 0.5 cm with minimal fibrinous cap Neurologic examination: Patient is awake alert and oriented x 3, cranial nerves III to XII appear gross intact, muscle power for 4 out of 5 in bilateral upper extremities and 3 out of 5 in the bilateral lower extremities. ASSESSMENT AND PLAN: 1. Acute hypoxemic vent dependent respiratory failure due to cardiac arrest/pulseless electrical activity status post 2 epinephrine via ACLS protocol. Patient since was extubated and she is currently on room air. 2. Acute on chronic systolic heart failure. Continue with hemodialysis Saturday and Saturday, monitor the patient input and output and daily weight continue hydralazine 25 mg orally twice every day. 3. Acute hypoxemic respiratory failure due to cardiac arrest as well as possible aspiration pneumonia. Continue patient on Augmentin 500/125 mg orally twice every day continue pulmonary toileting. 4. Coronary artery disease status post PCI of the RCA. Continue patient on aspirin 81 mg once every day, Plavix 75 mg once every day, atorvastatin 40 mg orally once every day. 5. Hypertension and hypertensive cardiovascular disease. Continue hydralazine 25 mg orally twice every day, monitor the patient blood pressure very closely. 6. Mixed hyperlipidemia. Continue patient on atorvastatin 40 mg orally once every day, monitor lipid panel, keep LDL 55-70. 7. Diabetes mellitus type 2. Continue patient on sliding scale insulin. 8. Close leg syndrome. Continue ropinirole 2 mg orally twice every day. 9. Anemia of chronic kidney disease. Continue to monitor the patient CBC. 10. Hypothyroidism. Continue levothyroxine 75 mcg orally once every day. 11. COPD exacerbation continue patient DuoNeb 3 mL nebulization 4 times every day, patient is currently on room air. 12. Chronic hypoxemic respiratory failure due to combination of ischemic cardiomyopathy and COPD. Continue treatment as in the first and second paragraph. 13. Subacute fracture of the medial and lateral malleolus currently in boot no surgical intervention is planned 14. GERD. Continue pantoprazole 40 mg orally once every day. 15. DVT prophylaxis. Heparin was discontinued due to abdominal wall bleeding. 16. right upper quadrant abdominal pain likely related to dysfunctional gallbladder with cholelithiasis. Patient is a high surgical risk therefore no surgery is contemplated. 17. Medical debility. Continue with physical therapy and Occupational Therapy evaluation, the plan is to transfer the patient back to [facility] 18. Right foot wound cleanse the wound with saline and apply Aquacel silver and cover with Optifoam change dressing Saturday and Saturday. 19. Superficial abdominal wall bleeding likely related to heparin injection. Discontinue heparin completely continue apply pressure dressing. 20. [facility] hopefully on Saturday. Objective - Vital Signs Vital signs: Vital Signs Temp 97.5 F L 01/11/24 08:00 Pulse 74 01/11/24 08:00 Resp 18 01/11/24 08:00 BP 148/80 01/11/24 08:00 Pulse Ox 98 01/11/24 08:00 FiO2 40 01/05/24 17:00 Intake & Output 01/10/24 01/11/24 01/11/24 18:59 06:59 18:59 Intake Total 760 118 Output Total 6400 Balance -5640 118 Weight 56.4 kg Intake: Oral 360 118 Hemodialysis 400 Output: Hemodialysis 3400 Hemodialysis Net Amount 3000 Other: Voiding Method Bedside Commode Bedside Commode Bedside Commode # Voids 0 0 # Bowel Movements 2 1 - Labs CBC & Chem 7: 01/11/24 06:37 01/11/24 06:37 Labs: Abnormal Lab Results - Last 24 Hours (Table) 01/10/24 01/10/24 01/11/24 Range/Units 16:48 20:09 06:08 RBC (3.80-5.40) m/uL Hgb (11.4-16.0) gm/dL Hct (34.0-46.0) % MCHC (31.0-37.0) g/dL RDW (11.5-15.5) % Lymphocytes # (Manual) (1.0-4.8) k/uL Sodium (137-145) mmol/L Chloride (98-107) mmol/L BUN (7-17) mg/dL Creatinine (0.52-1.04) mg/dL Glucose (74-99) mg/dL POC Glucose (mg/dL) 261 H 148 H 199 H (70-110) mg/dL Alkaline Phosphatase (38-126) U/L 01/11/24 01/11/24 01/11/24 Range/Units 06:37 06:37 11:47 RBC 2.99 L (3.80-5.40) m/uL Hgb 7.9 L (11.4-16.0) gm/dL Hct 27.8 L (34.0-46.0) % MCHC 28.5 L (31.0-37.0) g/dL RDW 18.2 H (11.5-15.5) % Lymphocytes # (Manual) 0.64 L (1.0-4.8) k/uL Sodium 135 L (137-145) mmol/L Chloride 97 L (98-107) mmol/L BUN 25 H (7-17) mg/dL Creatinine 2.35 H (0.52-1.04) mg/dL Glucose 157 H (74-99) mg/dL POC Glucose (mg/dL) 247 H (70-110) mg/dL Alkaline Phosphatase 182 H (38-126) U/L
--- NOTE | 2024-01-11 14:26 | P.PN ---
Subjective Progress Note Date: 01/11/24 Principal diagnosis: Reason for follow-up is recent MRSA bacteremia and possible cholecystitis Patient is a 58-year-old female with a past medical history significant for diabetes mellitus hypertension hyperlipidemia end-stage renal disease on dialysis recently treated for MRSA bacteremia related to the dialysis catheter which has been discontinued now being admitted to the hospital after apparently patient pulled out her dialysis catheter and subsequently did have a cardiac arrest during placement of the new catheter. On today's evaluation that is 01/11/2024, the patient continues to be afebrile, the patient is on room air and breathing comfortably, the Pt denies having any chest pain or cough, the patient denies having any abdominal pain no vomiting or any diarrhea, no new symptoms. Patient did have a white count of 4.8, creatinine is 2.25 Objective - Vital Signs Vital signs: Vital Signs Temp 98 F 01/11/24 12:00 Pulse 71 01/11/24 12:00 Resp 18 01/11/24 12:00 BP 152/77 01/11/24 12:00 Pulse Ox 99 01/11/24 12:00 FiO2 40 01/05/24 17:00 Intake & Output 01/10/24 01/11/24 01/11/24 18:59 06:59 18:59 Intake Total 760 678 Output Total 6400 Balance -5640 678 Weight 56.4 kg Intake: Oral 360 678 Hemodialysis 400 Output: Hemodialysis 3400 Hemodialysis Net Amount 3000 Other: Voiding Method Bedside Commode Bedside Commode Bedside Commode # Voids 0 0 3 # Bowel Movements 2 1 - Exam GENERAL DESCRIPTION: Middle-aged female up in bed in no distress RESPIRATORY SYSTEM: Unlabored breathing , decreased breath sounds at bases HEART: S1 S2 regular rate and rhythm , ABDOMEN: Soft , no tenderness EXTREMITIES: No edema feet - Labs CBC & Chem 7: 01/11/24 06:37 01/11/24 06:37 Labs: Abnormal Lab Results - Last 24 Hours (Table) 01/10/24 01/10/24 01/11/24 Range/Units 16:48 20:09 06:08 RBC (3.80-5.40) m/uL Hgb (11.4-16.0) gm/dL Hct (34.0-46.0) % MCHC (31.0-37.0) g/dL RDW (11.5-15.5) % Lymphocytes # (Manual) (1.0-4.8) k/uL Sodium (137-145) mmol/L Chloride (98-107) mmol/L BUN (7-17) mg/dL Creatinine (0.52-1.04) mg/dL Glucose (74-99) mg/dL POC Glucose (mg/dL) 261 H 148 H 199 H (70-110) mg/dL Alkaline Phosphatase (38-126) U/L 01/11/24 01/11/24 01/11/24 Range/Units 06:37 06:37 11:47 RBC 2.99 L (3.80-5.40) m/uL Hgb 7.9 L (11.4-16.0) gm/dL Hct 27.8 L (34.0-46.0) % MCHC 28.5 L (31.0-37.0) g/dL RDW 18.2 H (11.5-15.5) % Lymphocytes # (Manual) 0.64 L (1.0-4.8) k/uL Sodium 135 L (137-145) mmol/L Chloride 97 L (98-107) mmol/L BUN 25 H (7-17) mg/dL Creatinine 2.35 H (0.52-1.04) mg/dL Glucose 157 H (74-99) mg/dL POC Glucose (mg/dL) 247 H (70-110) mg/dL Alkaline Phosphatase 182 H (38-126) U/L Assessment and Plan (1) History of MRSA infection Current Visit: Yes Status: Acute Code(s): Z86.14 - PERSONAL HISTORY OF METHICILLIN RESIS STAPH INFECTION SNOMED Code(s): 454985936 (2) Type 2 diabetes mellitus with foot ulcer Current Visit: No Status: Acute Code(s): E11.621 - TYPE 2 DIABETES MELLITUS WITH FOOT ULCER; L97.509 - NON-PRESSURE CHRONIC ULCER OTH PRT UNSP FOOT W UNSP SEVERITY SNOMED Code(s): 0207543106501 Plan: 1patient recently did have a dialysis catheter infection with MRSA bacteremia patient has clear her bacteremia on her last visit no being readmitted to hospital after pending the patient pulled out her dialysis catheter subsequently did have a cardiac arrest while placement of another dialysis catheter patient did have a blood culture done this admission on 01/03/2024 that has been negative patient has been afebrile and did have normal white count meaning adequate treatment of underlying previous MRSA bacteremia and no need for further vancomycin which has been discontinued. 2patient is also on Zosyn with initial concern for possible aspiration pneumonitis chest x-ray has been mostly fluid overload with the ultrasound suspicious for cholecystitis, plan is for short course of Augmentin on discharge, continue with the Zosyn while inpatient. 3-patient did have a right heel diabetic foot ulcer which seem to have reopened but no significant cellulitis recommend local wound care with the dry Aquacel dressing change every 48 hour and keep the area of the pressure Family the bedside questions answered Dictation was produced using [employer] dictation software. please excuse any grammatical, word or spelling errors. Time with Patient: Less than 30
[2024-01-11 16:28] LABS: Glucose,Whole Blood 130 mg/dL (70-110)
[2024-01-11] MEDS: ACETAMINOPHEN TAB 325 MG TAB PO PRN (17:52)
[2024-01-11 20:34] LABS: Glucose,Whole Blood 399 mg/dL (70-110)
[2024-01-12 06:18] LABS: Glucose,Whole Blood 174 mg/dL (70-110)
[2024-01-12 08:34] LABS: African American GFR (CKD) 18 (>60 ml/min/1.73 sqM); Non-African American GFR(CKD) 16 (>60 ml/min/1.73 sqM)
--- NOTE | 2024-01-12 09:40 | P.PN ---
Subjective Progress Note Date: 01/12/24 Patient bhavin stable. She denies any significant abdominal pain. On exam vital signs appear stable. Abdomen soft. History of cholecystitis and rectal prolapse. Patient will follow-up as outpatient. Objective - Vital Signs Vital signs: Vital Signs Temp 97.8 F 01/12/24 08:00 Pulse 77 01/12/24 08:00 Resp 16 01/12/24 08:00 BP 136/89 01/12/24 08:00 Pulse Ox 96 01/12/24 08:00 FiO2 40 01/05/24 17:00 Intake & Output 01/11/24 01/12/24 01/12/24 18:59 06:59 18:59 Intake Total 796 Balance 796 Weight 58.4 kg Intake: Oral 796 Other: Voiding Method Bedside Commode Bedside Commode Bedside Commode # Voids 3 1 # Bowel Movements 1 - Labs CBC & Chem 7: 01/11/24 06:37 01/12/24 07:32 Labs: Abnormal Lab Results - Last 24 Hours (Table) 01/11/24 01/11/24 01/11/24 Range/Units 11:47 16:27 20:11 Creatinine (0.52-1.04) mg/dL POC Glucose (mg/dL) 247 H 130 H 399 H (70-110) mg/dL 01/12/24 01/12/24 Range/Units 05:52 07:32 Creatinine 3.11 H (0.52-1.04) mg/dL POC Glucose (mg/dL) 174 H (70-110) mg/dL
--- NOTE | 2024-01-12 10:15 | P.PN ---
Subjective Patient is seen in follow-up for acute kidney injury, hemodialysis dependent. Hemodynamically stable. No active complaints today. Wants to be discharged. Awaits prior Auth. Vital signs are stable. General: No acute distress. HEENT: On nasal cannula. LUNGS: No audible rhonchi or wheezes. HEART: Rate and Rhythm are regular. ABDOMEN: No distention. EXTREMITITES: 1+ edema. Objective - Vital Signs Vital signs: Vital Signs Temp 97.8 F 01/12/24 08:00 Pulse 77 01/12/24 08:00 Resp 16 01/12/24 08:00 BP 136/89 01/12/24 08:00 Pulse Ox 96 01/12/24 08:00 FiO2 40 01/05/24 17:00 Intake & Output 01/11/24 01/12/24 01/12/24 18:59 06:59 18:59 Intake Total 796 540 Balance 796 540 Weight 58.4 kg Intake: Oral 796 540 Other: Voiding Method Bedside Commode Bedside Commode Bedside Commode # Voids 3 1 # Bowel Movements 1 - Labs CBC & Chem 7: 01/11/24 06:37 01/12/24 07:32 Labs: Abnormal Lab Results - Last 24 Hours (Table) 01/11/24 01/11/24 01/11/24 Range/Units 11:47 16:27 20:11 Creatinine (0.52-1.04) mg/dL POC Glucose (mg/dL) 247 H 130 H 399 H (70-110) mg/dL 01/12/24 01/12/24 Range/Units 05:52 07:32 Creatinine 3.11 H (0.52-1.04) mg/dL POC Glucose (mg/dL) 174 H (70-110) mg/dL Assessment and Plan Plan: Assessment: 1. Acute kidney injury secondary to ATN secondary to cardiorenal syndrome, sepsis, hemodialysis dependent. Permacath placed January 09, 2024. 2. Status post cardiac arrest. 3. Volume overload. Improved with ultrafiltration. 4. Chronic kidney disease stage IV with baseline creatinine 2-2.5 secondary to cardiorenal syndrome, sepsis. 5. Anemia of chronic kidney disease. On Aranesp. 6. Chronic kidney disease mineral bone disease maintained on PhosLo. Phosphorus level 5.5 dated January 04, 2024. 7. Diabetes mellitus. 8. Recent MRSA infection. On antibiotics. 9. Abdominal pain. Ultrasound showed gallbladder wall thickening. Surgery following. 10. Hypervolemic hyponatremia. Improved postdialysis. Plan: Hemodialysis Saturday. Maintain torsemide. Monitor for renal recovery outpatient. Avoid morphine. Okay to use Dilaudid if needed. Antibiotics per ID. On Augmentin. Awaits discharge to rehab.
[2024-01-12 11:50] LABS: Glucose,Whole Blood 265 mg/dL (70-110)
--- NOTE | 2024-01-12 12:27 | P.PN ---
Subjective Progress Note Date: 01/12/24 Principal diagnosis: Cardiac arrest 58-year-old female patient, multiple medical problems including end-stage renal disease was on hemodialysis also known to have coronary artery disease with previous PCI and stenting of the RCA and known history of ischemic cardiomyopathy comes into the emergency department after losing her hemodialysis catheter. Apparently, her last hemodialysis session was on 01/02/2024. Based on that, the patient came in to ED and the patient was taken to [facility] for insertion of a new hemodialysis catheter. While in [facility], the patient was given fentanyl and during the procedure, the patient became pulseless. Details are not available. It was noted that the patient was in a PEA rhythm. The patient was given CPR, 2 rounds of epi, intubated and there was return of spontaneous circulation. Following that, the patient was kept intubated and she was transferred to the intensive care unit for further care. At this point in time, the patient is sedated on propofol and she is hemodynamically stable on no pressors. Her current vent setting includes AC of 14, tidal volume of 400, FiO2 100% and PEEP of 5. Patient was given a blood gas that showed a pH of 7.37 with a pCO2 of 49 and a pO2 of 63. Sodium is at 133, potassium is at 4.6, bicarb is 26 with a BUN of 47 and a creatinine of 3.58. LFTs showed alkaline phosphatase of 203. UA showing +2 protein, many WBCs, many bacteria, 49 RBCs, and the white cell count of 5.6 with a hemoglobin 8.2 and a platelet count of 228. Initial chest x-ray was within normal limits. Subsequent chest x-ray postintubation showed pulmonary edema. On a separate note, the patient was hospitalized in early November for sepsis. At that time, the blood culture was positive for MRSA and the patient was treated with vancomycin. She required removal of previously inserted dialysis catheter and she completed a total of 4 weeks course of IV antibiotics with daptomycin. Most recent blood cultures have been negative. On 01/04/2024, the patient remains intubated on mechanical ventilator. This morning, the patient on a propofol running at 45 mcg/kg/min. She remains intubated on the mechanical ventilator. Assist-control mode with rate of 14, tidal volume of 400, FiO2 50% with a PEEP of 5. Chest x-ray shows pulmonary edema. Blood gas shows a pH of 7.46 with a pCO2 of 39 and pO2 of 68. Cardiac rhythm is sinus. She is afebrile and hemodynamically stable. White cell count is 6.4 with a hemoglobin 7.2 and a platelet count of 200. Sodium levels at 132, BUN 52 with a creatinine of 3.4 and a potassium levels of 4.2. Remains on Zosyn and vancomycin. Blood cultures have been sent and results are still pending. Echocardiogram was also ordered. Doppler of the neck area revealed nonocclusive band of filling defect in the internal jugular vein that is thought to be representing a thrombus. This is corroborated to the previous catheter insertion. She remains on aspirin and Plavix. She remains on IV Zosyn and vancomycin for now. Urine output is minimal and Lasix will be discontinued. She is on no pressors for now. 01/05/2024, the patient is being seen for a follow-up. The patient remains intubated on mechanical ventilator. The patient underwent hemodialysis yesterday a total of 3 L of fluid and ultrafiltration was done. This morning's chest x-ray still showing to some residual pulmonary edema. The patient remains sedated on propofol which is running at 40 mcg/kg/min. She is on a mechanical ventilator on assist-control mode with rate of 14, tidal volume of 400, FiO2 of 40% with a PEEP of 5. Blood gas showed a pH of 7.44 with pCO2 44 and pO2 of 126. Minimal urine output at this point in time. Hemodynamically stable. Afebrile. Remains NPO. Home medications will be resumed. In addition, the patient is covered with IV Zosyn and vancomycin pending further cultures. The urine culture is positive for gram-negative bacillus at this point in time. Patient was seen today on 01/06/2024, patient remains in the ICU, she was extubated yesterday at 5 PM on 01/05/2024. Apparently the patient coded for about 4 minutes at the time she was brought into the ICU and she was having a left IJ catheter placement. The cath was basically for dialysis, and now she has a right femoral catheter. Patient is being treated for urinary tract infection secondary to Enterobacter, she is receiving Zosyn, patient seems to be doing well today, seems to be a bit slow, but overall she is doing well and she is on 2 L nasal cannula hemodynamically stable, not in any distress. WBC count is 4.6, hemoglobin 7.4 basic metabolic profile is normal BUN is 27 creatinine 2.14. Chest x-ray this morning showed mild interstitial pulmonary edema with small left pleural effusion and atelectasis Patient was evaluated today on 01/07/2024, patient is doing well, she was transferred yesterday out of the ICU, and now she is on 3 S. Patient is doing great, relatively asymptomatic, no active pulmonary symptoms, patient is being followed by nephrology and still undergoing hemodialysis. WBC count is 4.2 hemoglobin 7.6 electrolytes are normal BUN is 14 creatinine 1.84 chest x-ray yesterday showed some mild interstitial edema and small left pleural effusion with atelectasis. Patient was evaluated today on 01/08/2024, patient is doing well, receiving hemodialysis earlier this morning, she is on room air, she has some vague aches and pains. But overall seems to be doing well. WBC count is 6.1 hemoglobin 8.1 sodium is low at 126 BUN is 21 creatinine 2.54, that being addressed by nephrol fidel. Patient was again today on 01/09/2024, patient is doing well, no active pulmonary symptoms. Patient had another dialysis catheter placed in the right subclavian area placed by vascular surgery, and I believe her right groin dialysis catheter has been removed patient remains on hemodialysis. She has no cough no wheezing no shortness of breath, she has some vague right upper quadrant pain, on physical examination did not seem to be surgical. WBC count is 5.5 hemoglobin 7.5 electrolytes are normal BUN is 14 creatinine 1.98 Seen today on 01/10/2024, patient is doing great, asymptomatic, being considered for discharge home today after dialysis. I will clear the patient for discharge if cleared by other consultants. Seen today on 01/11/2024, patient did not end up getting discharged yesterday, apparently had issues with bed situation at [facility]. May still get discharged sometime today if authorization takes place, in the meantime patient is asymptomatic no cough no wheezing no shortness of breath. She is on room air, asymptomatic. Patient was seen today on 01/12/2024, doing quite well, asymptomatic, hoping to be discharged home in the next 24 hours. No active pulmonary symptoms. Objective - Vital Signs Vital signs: Vital Signs Temp 97.5 F L 09/15/24 12:00 Pulse 77 01/12/24 12:00 Resp 17 01/12/24 12:00 BP 131/90 01/12/24 12:00 Pulse Ox 96 01/12/24 12:00 FiO2 40 01/05/24 17:00 Intake & Output 01/11/24 01/12/24 01/12/24 18:59 06:59 18:59 Intake Total 796 540 Balance 796 540 Weight 58.4 kg Intake: Oral 796 540 Other: Voiding Method Bedside Commode Bedside Commode Bedside Commode # Voids 3 1 1 # Bowel Movements 1 1 - Exam General: 58-year-old female on room air Head exam was generally normal. There was no scleral icterus or corneal arcus. Mucous membranes were moist. HEENT: Head is atraumatic, normocephalic, pupils were equal round , sclera nonicteric, conjunctivae were pale, moist mucous membranes. Right subclavian dialysis catheter is noted Neck: Supple, negative JVd, normal carotid upstroke bilaterally, no masses Chest: Symmetrical chest expansion, diminished breath sounds at the bases no crackles rhonchi or wheezes Heart: Normal S1-S2, 2/6 systolic murmur throughout the left lower sternal border Abdomen: nontender no megaly no rebound no guarding, soft Extremities: No clubbing edema or cyanosis Neurologic examination: No gross focal deficit Examination of the skin revealed no rashes. - Labs CBC & Chem 7: 01/11/24 06:37 01/12/24 07:32 Labs: Abnormal Lab Results - Last 24 Hours (Table) 01/11/24 01/11/24 01/12/24 Range/Units 16:27 20:11 05:52 Creatinine (0.52-1.04) mg/dL POC Glucose (mg/dL) 130 H 399 H 174 H (70-110) mg/dL 01/12/24 01/12/24 Range/Units 07:32 11:49 Creatinine 3.11 H (0.52-1.04) mg/dL POC Glucose (mg/dL) 265 H (70-110) mg/dL Assessment and Plan Assessment: Impression: Acute PEA cardiac arrest, required brief CPR, intubation mechanical ventilation. End-stage disease on hemodialysis MRSA septicemia, treated with subsequent clearing of the blood cultures in early November 2023 Acute hypoxic respiratory failure secondary to above. Resolved was extubated on 01/05/2024 Congestion heart failure with preserved LV function Diabetes mellitus type 2 COPD Coronary artery disease with previous PCI and stenting of RCA Previous episodes of cardiac arrest back in July 2023 Hypertension Hyperlipidemia Chronic wounds in lower extremities History of rectal prolapse Recommendation: Not much to be added at this point, Discharge planning is in progress for the next 24 hours Continue bronchodilators Will follow as needed Time with Patient: Less than 30
--- NOTE | 2024-01-12 16:37 | P.PN ---
Subjective Progress Note Date: 01/12/24 Principal diagnosis: Reason for follow-up is recent MRSA bacteremia and possible cholecystitis Patient is a 58-year-old female with a past medical history significant for diabetes mellitus hypertension hyperlipidemia end-stage renal disease on dialysis recently treated for MRSA bacteremia related to the dialysis catheter which has been discontinued now being admitted to the hospital after apparently patient pulled out her dialysis catheter and subsequently did have a cardiac arrest during placement of the new catheter. On today's evaluation that is 01/12/2024, Patient is afebrile patient is currently on room air and denies having any shortness of breath, the patient denies any chest pain or cough, the patient denies any nausea vomiting did not have any abdominal pain and no diarrhea patient mention feeling better. Patient did have a creatinine 3.11 blood culture negative Objective - Vital Signs Vital signs: Vital Signs Temp 97.5 F L 01/12/24 12:00 Pulse 77 01/12/24 14:00 Resp 17 01/12/24 14:00 BP 131/90 01/12/24 12:00 Pulse Ox 96 01/12/24 12:00 FiO2 40 01/05/24 17:00 Intake & Output 01/11/24 01/12/24 01/12/24 18:59 06:59 18:59 Intake Total 796 658 Balance 796 658 Weight 58.4 kg Intake: Oral 796 658 Other: Voiding Method Bedside Commode Bedside Commode Bedside Commode # Voids 3 1 1 # Bowel Movements 1 1 - Exam GENERAL DESCRIPTION: Middle-aged female up in bed in no distress RESPIRATORY SYSTEM: Unlabored breathing , decreased breath sounds at bases HEART: S1 S2 regular rate and rhythm , ABDOMEN: Soft , no tenderness EXTREMITIES: No edema feet - Labs CBC & Chem 7: 01/11/24 06:37 01/12/24 07:32 Labs: Abnormal Lab Results - Last 24 Hours (Table) 01/11/24 01/12/24 01/12/24 Range/Units 20:11 05:52 07:32 Creatinine 3.11 H (0.52-1.04) mg/dL POC Glucose (mg/dL) 399 H 174 H (70-110) mg/dL 01/12/24 Range/Units 11:49 Creatinine (0.52-1.04) mg/dL POC Glucose (mg/dL) 265 H (70-110) mg/dL Assessment and Plan (1) History of MRSA infection Current Visit: Yes Status: Acute Code(s): Z86.14 - PERSONAL HISTORY OF METHICILLIN RESIS STAPH INFECTION SNOMED Code(s): 244520294 (2) Type 2 diabetes mellitus with foot ulcer Current Visit: No Status: Acute Code(s): E11.621 - TYPE 2 DIABETES MELLITUS WITH FOOT ULCER; L97.509 - NON-PRESSURE CHRONIC ULCER OTH PRT UNSP FOOT W UNSP SEVERITY SNOMED Code(s): 5919313330623 Plan: 1patient recently did have a dialysis catheter infection with MRSA bacteremia patient has clear her bacteremia on her last visit no being readmitted to hospital after pending the patient pulled out her dialysis catheter subsequently did have a cardiac arrest while placement of another dialysis catheter patient did have a blood culture done this admission on 01/03/2024 that has been negative patient has been afebrile and did have normal white count meaning adequate treatment of underlying previous MRSA bacteremia and no need for further vancomycin which has been discontinued. 2patient antibiotics has been switched over to oral Augmentin to continue for short course 3-patient did have a right heel diabetic foot ulcer which seem to have reopened but no significant cellulitis recommend local wound care with the dry Aquacel dressing change every 48 hour and keep the area of the pressure Family the bedside questions answered Dictation was produced using [employer] dictation software. please excuse any grammatical, word or spelling errors.
[2024-01-12 16:38] LABS: Glucose,Whole Blood 292 mg/dL (70-110)
[2024-01-12 20:47] LABS: Glucose,Whole Blood 301 mg/dL (70-110)
[2024-01-13 06:11] LABS: Glucose,Whole Blood 131 mg/dL (70-110)
[2024-01-13 08:35] LABS: ALT 10 U/L (4-34); AST 23 U/L (14-36); African American GFR (CKD) 16 (>60 ml/min/1.73 sqM); Albumin 3.5 g/dL (3.5-5.0); Alkaline Phosphatase 175 U/L (38-126); Anion Gap 12 mmol/L; Blood Urea Nitrogen 58 mg/dL (7-17); Calcium 8.9 mg/dL (8.4-10.2); Carbon Dioxide 23 mmol/L (22-30); Chloride 100 mmol/L (98-107); Glucose 109 mg/dL (74-99); Non-African American GFR(CKD) 14 (>60 ml/min/1.73 sqM); Potassium 5.8 mmol/L (3.5-5.1); Sodium 135 mmol/L (137-145); Total Bilirubin 0.7 mg/dL (0.2-1.3); Total Protein 7.9 g/dL (6.3-8.2)
[2024-01-13 08:39] LABS: Anisocytosis Slight; HCT 26.8 % (34.0-46.0); HGB 7.8 gm/dL (11.4-16.0); Hypochromasia Marked; MCH 27.2 pg (25.0-35.0); MCHC 29.1 g/dL (31.0-37.0); MCV 93.8 fL (80.0-100.0); Mean Platelet Volume 9.2; Platelet Count 316 k/uL (150-450); Poikilocytosis Slight; RBC 2.86 m/uL (3.80-5.40); RDW 18.4 % (11.5-15.5); WBC 5.7 k/uL (3.8-10.6)
[2024-01-13 08:58] LABS: Band Neutrophils % 3 %; Eosinophils # (M) 0.34 k/uL (0-0.7); Lymphocytes # (M) 0.97 k/uL (1.0-4.8); Metamyelocytes # (M) 0.06 k/uL (0); Metamyelocytes % 1 %; Monocytes # (M) 0.34 k/uL (0-1.0); Myelocytes # (M) 0.06 k/uL (0); Myelocytes % 1 %; Neutrophils % (M) 69 %; Nucleated Red Blood Cells 0 /100 WBC (0-0); Total Cells Counted 200
--- NOTE | 2024-01-13 09:58 | P.PN ---
Subjective Progress Note Date: 01/13/24 CHIEF COMPLAINT: Cardiac arrest HISTORY OF PRESENT ILLNESS: Surgical service following in regards to patient's abdominal pain and cholecystitis. Patient tolerating diet. She denies any abdominal pain at this time. She is currently getting hemodialysis. She is awaiting prior authorization for rehab placement. She reports having bowel movements. Afebrile. WBC 5.7 Hgb 7.8 platelets 316 PHYSICAL EXAM: VITAL SIGNS: Reviewed. GENERAL: no acute distress. ABDOMEN: Soft. Nondistended. Nontender NEUROLOGIC: awake and alert ASSESSMENT: 1. Acute on chronic cholecystitis 2. Chronic rectal prolapse 3. Acute PEA cardiac arrest on admission 4. History of coronary artery disease and cardiac stent in May PLAN: -No surgical intervention planned at this time -Follow-up outpatient with Dr. Marlow -Continue low-fat diet Physician [employer] note has been reviewed by physician. Signing provider agrees with the documented findings, assessment, and plan of care. Objective - Vital Signs Vital signs: Vital Signs Temp 98.0 F 01/13/24 03:15 Pulse 86 01/13/24 08:21 Resp 20 01/13/24 08:21 BP 119/74 01/13/24 08:21 Pulse Ox 96 01/13/24 08:21 FiO2 40 01/05/24 17:00 Intake & Output 01/12/24 01/13/24 01/13/24 18:59 06:59 18:59 Intake Total 1058 Balance 1058 Weight 60.5 kg Intake: Oral 1058 Other: Voiding Method Bedside Commode Bedside Commode # Voids 1 # Bowel Movements 1 1 - Labs CBC & Chem 7: 01/13/24 07:38 01/13/24 07:38 Labs: Abnormal Lab Results - Last 24 Hours (Table) 01/12/24 01/12/24 01/12/24 Range/Units 11:49 16:36 20:15 RBC (3.80-5.40) m/uL Hgb (11.4-16.0) gm/dL Hct (34.0-46.0) % MCHC (31.0-37.0) g/dL RDW (11.5-15.5) % Lymphocytes # (Manual) (1.0-4.8) k/uL Metamyelocytes # (Man) (0) k/uL Myelocytes # (Manual) (0) k/uL Sodium (137-145) mmol/L Potassium (3.5-5.1) mmol/L BUN (7-17) mg/dL Creatinine (0.52-1.04) mg/dL Glucose (74-99) mg/dL POC Glucose (mg/dL) 265 H 292 H 301 H (70-110) mg/dL Alkaline Phosphatase (38-126) U/L 01/13/24 01/13/24 01/13/24 Range/Units 05:48 07:38 07:38 RBC 2.86 L (3.80-5.40) m/uL Hgb 7.8 L (11.4-16.0) gm/dL Hct 26.8 L (34.0-46.0) % MCHC 29.1 L (31.0-37.0) g/dL RDW 18.4 H (11.5-15.5) % Lymphocytes # (Manual) 0.97 L (1.0-4.8) k/uL Metamyelocytes # (Man) 0.06 H (0) k/uL Myelocytes # (Manual) 0.06 H (0) k/uL Sodium 135 L (137-145) mmol/L Potassium 5.8 H (3.5-5.1) mmol/L BUN 58 H (7-17) mg/dL Creatinine 3.44 H (0.52-1.04) mg/dL Glucose 109 H (74-99) mg/dL POC Glucose (mg/dL) 131 H (70-110) mg/dL Alkaline Phosphatase 175 H (38-126) U/L
[2024-01-13 11:32] LABS: Glucose,Whole Blood 150 mg/dL (70-110)
--- NOTE | 2024-01-13 12:08 | P.PN ---
Subjective Progress Note Date: 01/13/24 Principal diagnosis: Cardiac arrest. Patient was seen today on 01/06/2024, patient remains in the ICU, she was extubated yesterday at 5 PM on 01/05/2024. Apparently the patient coded for about 4 minutes at the time she was brought into the ICU and she was having a left IJ catheter placement. The cath was basically for dialysis, and now she has a right femoral catheter. Patient is being treated for urinary tract infection secondary to Enterobacter, she is receiving Zosyn, patient seems to be doing well today, seems to be a bit slow, but overall she is doing well and she is on 2 L nasal cannula hemodynamically stable, not in any distress. WBC count is 4.6, hemoglobin 7.4 basic metabolic profile is normal BUN is 27 creatinine 2.14. Chest x-ray this morning showed mild interstitial pulmonary edema with small left pleural effusion and atelectasis Patient was evaluated today on 01/07/2024, patient is doing well, she was transferred yesterday out of the ICU, and now she is on 3 S. Patient is doing great, relatively asymptomatic, no active pulmonary symptoms, patient is being followed by nephrology and still undergoing hemodialysis. WBC count is 4.2 hemoglobin 7.6 electrolytes are normal BUN is 14 creatinine 1.84 chest x-ray yesterday showed some mild interstitial edema and small left pleural effusion with atelectasis. Patient was evaluated today on 01/08/2024, patient is doing well, receiving hemodialysis earlier this morning, she is on room air, she has some vague aches and pains. But overall seems to be doing well. WBC count is 6.1 hemoglobin 8.1 sodium is low at 126 BUN is 21 creatinine 2.54, that being addressed by nephrology. Patient was again today on 01/09/2024, patient is doing well, no active pulmonary symptoms. Patient had another dialysis catheter placed in the right subclavian area placed by vascular surgery, and I believe her right groin dialysis catheter has been removed patient remains on hemodialysis. She has no cough no wheezing no shortness of breath, she has some vague right upper quadrant pain, on physical examination did not seem to be surgical. WBC count is 5.5 hemoglobin 7.5 electrolytes are normal BUN is 14 creatinine 1.98 Seen today on 01/10/2024, patient is doing great, asymptomatic, being considered for discharge home today after dialysis. I will clear the patient for discharge if cleared by other consultants. Seen today on 01/11/2024, patient did not end up getting discharged yesterday, apparently had issues with bed situation at [facility]. May still get discharged sometime today if authorization takes place, in the meantime patient is asymptomatic no cough no wheezing no shortness of breath. She is on room air, asymptomatic. Patient was seen today on 01/12/2024, doing quite well, asymptomatic, hoping to be discharged home in the next 24 hours. No active pulmonary symptoms. Progress note dated January 13, 2024. The patient is seen today in room 352. The patient is receiving hemodialysis today, with a goal of removal of 3 L of fluid. The patient is hoping to be discharged, to one of the local nursing homes. The patient is on room air. She is not receiving any IV fluids. Current labs include a white count 5.7, hemoglobin 7.8, hematocrit 26.8, and a normal platelet count. Sodium 135, po tassium 5.8, chlorides 100, CO2 23, BUN 58, creatinine 3.44. Glucose is 150. Albumin is 3.5. Sputum sampling on January 02 was positive for Lacy. In addition, urine specimens on January 02 were positive for Enterobacter cloacae. Objective - Vital Signs Vital signs: Vital Signs Temp 98.2 F 01/13/24 11:58 Pulse 84 01/13/24 11:58 Resp 18 01/13/24 11:58 BP 155/85 01/13/24 11:58 Pulse Ox 96 01/13/24 08:21 FiO2 40 01/05/24 17:00 Intake & Output 01/12/24 01/13/24 01/13/24 18:59 06:59 18:59 Intake Total 1058 400 Output Total 6400 Balance 1058 -6000 Weight 60.5 kg Intake: Oral 1058 Hemodialysis 400 Output: Hemodialysis 3400 Hemodialysis Net Amount 3000 Other: Voiding Method Bedside Commode Bedside Commode # Voids 1 # Bowel Movements 1 1 - Exam No acute distress, oriented 3. Room air saturation is 96%. HEENT examination is grossly unremarkable. Mucous membranes are moist. No oral lesions. Neck supple. Full range of motion. No adenopathy thyromegaly or neck vein distention. Cardiovascular examination reveals regular rhythm rate. S1-S2 normal. No S3 or S4. No discernible murmur noted. Lungs reveal clear breath sounds. Breath sounds are equal bilaterally. No adventitious lung sounds including wheezes rhonchi or crackles. Abdomen soft bowel sounds are heard. No masses or tenderness. Extremities are intact. No cyanosis clubbing or edema. Skin is without rash or lesion. Neurologic examination is brief but nonfocal. - Labs CBC & Chem 7: 01/13/24 07:38 01/13/24 07:38 Labs: Abnormal Lab Results - Last 24 Hours (Table) 01/12/24 01/12/24 01/13/24 Range/Units 16:36 20:15 05:48 RBC (3.80-5.40) m/uL Hgb (11.4-16.0) gm/dL Hct (34.0-46.0) % MCHC (31.0-37.0) g/dL RDW (11.5-15.5) % Lymphocytes # (Manual) (1.0-4.8) k/uL Metamyelocytes # (Man) (0) k/uL Myelocytes # (Manual) (0) k/uL Sodium (137-145) mmol/L Potassium (3.5-5.1) mmol/L BUN (7-17) mg/dL Creatinine (0.52-1.04) mg/dL Glucose (74-99) mg/dL POC Glucose (mg/dL) 292 H 301 H 131 H (70-110) mg/dL Alkaline Phosphatase (38-126) U/L 01/13/24 01/13/24 01/13/24 Range/Units 07:38 07:38 11:24 RBC 2.86 L (3.80-5.40) m/uL Hgb 7.8 L (11.4-16.0) gm/dL Hct 26.8 L (34.0-46.0) % MCHC 29.1 L (31.0-37.0) g/dL RDW 18.4 H (11.5-15.5) % Lymphocytes # (Manual) 0.97 L (1.0-4.8) k/uL Metamyelocytes # (Man) 0.06 H (0) k/uL Myelocytes # (Manual) 0.06 H (0) k/uL Sodium 135 L (137-145) mmol/L Potassium 5.8 H (3.5-5.1) mmol/L BUN 58 H (7-17) mg/dL Creatinine 3.44 H (0.52-1.04) mg/dL Glucose 109 H (74-99) mg/dL POC Glucose (mg/dL) 150 H (70-110) mg/dL Alkaline Phosphatase 175 H (38-126) U/L Assessment and Plan Assessment: Acute PEA cardiac arrest, requiring brief CPR, intubation, and mechanical ventilation. End-stage renal disease, currently on hemodialysis. Methicillin-resistant Staphylococcus aureus septicemia. Acute hypoxemic respiratory failure. Congestive heart failure, with preserved LV function. Type 2 diabetes mellitus. History of chronic obstructive pulmonary disease. Coronary artery disease, with previous PCI of the right coronary artery. Previous episode of cardiac arrest, July 2023. History of hypertension. History of hyperlipidemia. Chronic wounds, lower extremities. History of rectal prolapse. Plan: Plan dated January 13, 2024. The patient is currently on room air. She is not requiring any IV fluids. The patient is receiving hemodialysis today, with the goal of removing 3 L. The patient is hoping to be discharged in the near future. Discharge planning is underway. We will continue to follow the patient, make recommendations along the way. Labs, x-rays, and all medications have been reviewed. Time with Patient: Less than 30
--- NOTE | 2024-01-13 12:25 | P.PN ---
Subjective Progress Note Date: 01/13/24 Principal diagnosis: Reason for follow-up is recent MRSA bacteremia and possible cholecystitis Patient is a 58-year-old female with a past medical history significant for diabetes mellitus hypertension hyperlipidemia end-stage renal disease on dialysis recently treated for MRSA bacteremia related to the dialysis catheter which has been discontinued now being admitted to the hospital after apparently patient pulled out her dialysis catheter and subsequently did have a cardiac arrest during placement of the new catheter. On today's evaluation that is 01/13/2024, patient has been afebrile, patient is breathing comfortably and is currently on room air, patient denies having any significant cough no chest pain shortness of breath, patient denies nausea vomiting or diarrhea and no abdominal pain, denies pain to the right heel wound. Patient white count is 5.7, creatinine 3.44 Objective - Vital Signs Vital signs: Vital Signs Temp 98.2 F 01/13/24 11:58 Pulse 84 01/13/24 11:58 Resp 18 01/13/24 11:58 BP 155/85 01/13/24 11:58 Pulse Ox 96 01/13/24 08:21 FiO2 40 01/05/24 17:00 Intake & Output 01/12/24 01/13/24 01/13/24 18:59 06:59 18:59 Intake Total 1058 400 Output Total 6400 Balance 1058 -6000 Weight 60.5 kg Intake: Oral 1058 Hemodialysis 400 Output: Hemodialysis 3400 Hemodialysis Net Amount 3000 Other: Voiding Method Bedside Commode Bedside Commode # Voids 1 # Bowel Movements 1 1 1 - Exam GENERAL DESCRIPTION: Middle-aged female up in bed in no distress RESPIRATORY SYSTEM: Unlabored breathing , decreased breath sounds at bases HEART: S1 S2 regular rate and rhythm , ABDOMEN: Soft , no tenderness EXTREMITIES: No edema feet - Labs CBC & Chem 7: 01/13/24 07:38 01/13/24 07:38 Labs: Abnormal Lab Results - Last 24 Hours (Table) 01/12/24 01/12/24 01/13/24 Range/Units 16:36 20:15 05:48 RBC (3.80-5.40) m/uL Hgb (11.4-16.0) gm/dL Hct (34.0-46.0) % MCHC (31.0-37.0) g/dL RDW (11.5-15.5) % Lymphocytes # (Manual) (1.0-4.8) k/uL Metamyelocytes # (Man) (0) k/uL Myelocytes # (Manual) (0) k/uL Sodium (137-145) mmol/L Potassium (3.5-5.1) mmol/L BUN (7-17) mg/dL Creatinine (0.52-1.04) mg/dL Glucose (74-99) mg/dL POC Glucose (mg/dL) 292 H 301 H 131 H (70-110) mg/dL Alkaline Phosphatase (38-126) U/L 01/13/24 01/13/24 01/13/24 Range/Units 07:38 07:38 11:24 RBC 2.86 L (3.80-5.40) m/uL Hgb 7.8 L (11.4-16.0) gm/dL Hct 26.8 L (34.0-46.0) % MCHC 29.1 L (31.0-37.0) g/dL RDW 18.4 H (11.5-15.5) % Lymphocytes # (Manual) 0.97 L (1.0-4.8) k/uL Metamyelocytes # (Man) 0.06 H (0) k/uL Myelocytes # (Manual) 0.06 H (0) k/uL Sodium 135 L (137-145) mmol/L Potassium 5.8 H (3.5-5.1) mmol/L BUN 58 H (7-17) mg/dL Creatinine 3.44 H (0.52-1.04) mg/dL Glucose 109 H (74-99) mg/dL POC Glucose (mg/dL) 150 H (70-110) mg/dL Alkaline Phosphatase 175 H (38-126) U/L Assessment and Plan (1) History of MRSA infection Current Visit: Yes Status: Acute Code(s): Z86.14 - PERSONAL HISTORY OF METHICILLIN RESIS STAPH INFECTION SNOMED Code(s): 719668339 (2) Type 2 diabetes mellitus with foot ulcer Current Visit: No Status: Acute Code(s): E11.621 - TYPE 2 DIABETES MELLITUS WITH FOOT ULCER; L97.509 - NON-PRESSURE CHRONIC ULCER OTH PRT UNSP FOOT W UNSP SEVERITY SNOMED Code(s): 6599966467867 Plan: 1patient recently did have a dialysis catheter infection with MRSA bacteremia patient has clear her bacteremia on her last visit no being readmitted to hospital after pending the patient pulled out her dialysis catheter subsequently did have a cardiac arrest while placement of another dialysis catheter patient did have a blood culture done this admission on 01/03/2024 that has been negative patient has been afebrile and did have normal white count meaning adequate treatment of underlying previous MRSA bacteremia and no need for further vancomycin which has been discontinued. 2-patient did have a right heel diabetic foot ulcer which seem to have reopened but no significant cellulitis recommend local wound care with the dry Aquacel dressing change every 48 hour and keep the area of the pressure 3-patient is currently on oral Augmentin to continue for about 7 days on discharge Dictation was produced using [employer] dictation software. please excuse any grammatical, word or spelling errors. Time with Patient: Less than 30
--- NOTE | 2024-01-13 12:35 | P.DS ---
Providers Date of admission: 01/03/24 14:09 Expected date of discharge: 01/13/24 Attending physician: Jesus Mina Consults: 01/03/24 14:07 Consult Physician Routine Consulting Provider: Janey Nunez Consult Reason/Comments: esrd Do you want consulting provider notified?: Yes Consult Physician Stat Consulting Provider: Breana Ayala Consult Reason/Comments: cardiac arrest Do you want consulting provider notified?: Already Contacted 01/03/24 16:31 Consult Physician Routine Consulting Provider: Israel Dale Consult Reason/Comments: hemodialysis catheter insertion Do you want consulting provider notified?: Already Contacted 01/08/24 15:06 Consult Physician Routine Consulting Provider: Yonas Marlow Consult Reason/Comments: abdominal pain Do you want consulting provider notified?: Already Contacted 01/08/24 15:28 Consult Physician Routine Consulting Provider: Francisco Javier Valencia Consult Reason/Comments: cardiac risk assessment Do you want consulting provider notified?: Yes 01/09/24 10:46 Consult Physician Routine Consulting Provider: Shawnee Subramanian Consult Reason/Comments: recent mrsa Do you want consulting provider notified?: Yes Primary care physician: Jesus Mina Hospital Course: HISTORY OF PRESENT ILLNESS: This is a 58-year-old female with a previous medical history significant for coronary artery disease status post PCI of the RCA 2023 with ischemic cardiomyopathy, hypertension and hypertensive cardiovascular disease, hyperlipidemia, diabetes mellitus type 2 uncontrolled, fracture of the right medial and lateral malleolus, anemia of chronic kidney disease, COPD, epistaxis, chronic kidney disease stage 4 due to cardiorenal syndrome she ended up getting started on dialysis on the last hospital admission about a month ago when she was admitted to the hospital with fluid overload and acute systolic heart failure and worsening renal failure despite aggressive diuresis, and using significant amount of diuretics, patient ended up going on dialysis she had a permanent catheter placed in the right internal jugular vein, and patient developed to have a significant MRSA bacteremia that required removal of the dialysis catheter and subsequently she was treated with IV antibiotic for a total I believe of 4 weeks of IV antibiotic in the form of daptomycin, patient blood cultures normalizes, the patient ended up having another permacatheter placed in the left internal jugular vein, and the patient was discharged to [facility] and she has been there she has been going to dialysis at [facility] and she has been doing fine apparently patient underwent dialysis yesterday, and she had pulled her dialysis catheter today she ended up coming to the ER for evaluation she was taken to the [facility] for replacement of the the left internal jugular catheter but the patient became quite agitated, and she went into pulseless electrical activity she did receive 2 epinephrine, she was intubated at the [facility], she was admitted to the ICU, she was admitted under my service, with consultation to Dr. Romo from intensive care unit, patient is currently being seen in the ICU, she is currently on the ventilator, she is sedated with Precedex, and had a chest x-ray in the ICU that showed evidence of significant pulmonary vascular congestion as well as bilateral pulmonary infiltrates, patient may have had aspirated, she will be started on Zosyn 3.375 g of piggyback every 8 hours as well as vancomycin pharmacy to dose its peak and trough, patient will have a sputum culture, blood culture, urine culture, and she will be seen in consultation by clinical program director, she will be seen in consultation by infectious disease Dr. Subramanian as well. 01/05: Patient is sitting up in a chair in no apparent distress, patient underwent hemodialysis she just had 4 L taken out, she continues to have significant restless leg syndrome and she has been getting ropinirole 2 mg at bedtime, we will continue to monitor the patient very closely, patient has been maintained on vancomycin as well as Zosyn for now, we will continue to monitor the patient very closely, monitor the culture, the plan is for the patient to be transferred back to [facility] when the patient is more stable. Likely the patient will be moved to monitored bed in the next 24 hours. 01/06: Send has significant restless leg overnight we will increase her ropinirole to 2 mg orally twice every day, monitor the patient very closely, patient is scheduled to go for hemodialysis tomorrow morning, urine culture showed evidence of Enterobacter cloacae that is resistant to a lot of antibiotic except for Zosyn which she is on sputum culture showed Lacy albicans which considered to be normal ananya, maintain the patient on current IV antibiotic, discontinue vancomycin and Zosyn tomorrow morning and start the patient on Augmentin 500/125 mg orally twice every day for the next 7 days. Patient most likely will be able to be discharged back to [facility] tomorrow morning. 01/07: Patient is sitting up in the chair in no apparent distress, she had dialysis today, she denies any chest pain, shortness of breath, she continues to have some swelling both lower extremities, she she did have significant amount of right upper quadrant abdominal pain that started 1:00 in the morning associate with nausea but no vomiting, and did have have abdominal x-ray did not show evidence of acute abnormalities, ultrasound of the abdomen showed evidence of increased thickness of the gallbladder with possible cholecystitis patient has been on Zosyn we will continue with that, patient was seen in consultation by general surgery it was recommended for the patient to have laparoscopic cholecystectomy after she is cleared by cardiology. 01/08: Patient will not be going for laparoscopic cholecystectomy as the patient is a high risk for surgery at this point in time, and the patient is aware of that, therefore the patient can be discharged back to [facility] in the next 24 hours after hemodialysis, patient is having some issues with bleeding from the abdominal wall where the heparin injection is given we will discontinue heparin injection completely, continue to apply pressure dressing, monitor the patient's hemoglobin over the next 24 hours, patient will be kept on Zosyn for now, hopefully she will be able to switch to oral Augmentin 500/125 mg orally twice every day for the next 7 days. 01/09: Patient sitting up in a chair in no apparent distress, she feels itchy in her back, her bleeding in the abdomen stopped after stopping heparin, she did have dialysis today, she did have 3 L removed, patient's unfortunately did not get the prior authorization for her to go back to [facility] therefore she is staying in the hospital for Saturday, continue current treatment plan, discontinue IV antibiotic, continue Augmentin 500/125 mg orally twice every day for the next 7 days, patient will likely be discharged on Saturday. 01/10: Patient is sitting up in a chair in no apparent distress, yesterday she was complaining some pain over the permacatheter is in the right IJ, has no fever or chills at this time, her pain medication was increased, she denies any abdominal pain, nausea vomiting or diarrhea at this time, she is tolerating her diet very well, she is awaiting the prior authorization from her insurance to go to [facility] hopefully on Saturday. 01/11: Patient sitting up in bed in no apparent distress, she denies any unusual symptoms today, she continues to be on current pain management, patient scheduled for dialysis tomorrow morning, and then after that she can be discharged to [facility], we will continue to follow-up with the patient very closely recheck her labs tomorrow morning. No new issues per 01/12: Patient underwent her hemodialysis today, she is doing better today, we are awaiting the prior authorization for the patient to be discharged to [facility] whenever the authorization is available. 01/13: We are still awaiting insurance prior authorization for the patient to be going to [facility], patient is complaining of pain in the left shoulder as well as in both lower extremities, currently on Tylenol as well as [place] for pain control, patient has no access at this time, we will continue current treatment plan, awaiting the final input from the insurance for the patient to be discharged today. Discharge diagnoses: 1. Acute hypoxemic vent dependent respiratory failure due to cardiac arrest/pulseless electrical activity status post 2 epinephrine via ACLS protocol. 2. Acute on chronic systolic heart failure. 3. Acute hypoxemic respiratory failure due to cardiac arrest as well as possible aspiration pneumonia. 4. Coronary artery disease status post PCI of the RCA. 5. Hypertension and hypertensive cardiovascular disease. 6. Mixed hyperlipidemia. 7. Diabetes mellitus type 2. 8. Close leg syndrome. 9. Anemia of chronic kidney disease. 10. Hypothyroidism. 11. COPD exacerbation 12. Chronic hypoxemic respiratory failure due to combination of ischemic cardiomyopathy and COPD. 13. Subacute fracture of the medial and lateral malleolus currently in boot no surgical intervention is planned 14. GERD. 15. DVT prophylaxis. 16. right upper quadrant abdominal pain likely related to dysfunctional gallbladder with cholelithiasis. 17. Medical debility. 18. Right foot wound cleanse the wound with saline and apply Aquacel silver and cover with Optifoam change dressing Saturday and Saturday. 19. Superficial abdominal wall bleeding likely related to heparin injection. Patient Condition at Discharge: Serious Plan - Discharge Summary Discharge Rx Participant: No New Discharge Prescriptions: New Amoxic-Pot Clav 500-125 mg [Augmentin 500-125 mg] 1 each PO BID 5 Days tab Darbepoetin Frantz [Aranesp] 40 mcg SQ Q7D each Torsemide [Demadex] 40 mg PO DAILY tab Pantoprazole [Protonix] 40 mg PO AC-BRKFST tab Continue Ipratropium-Albuterol Nebulize [Duoneb 0.5 mg-3 mg/3 ml Soln] 3 ml INHALATION RT-Q6H PRN PRN Reason: Shortness Of Breath Insulin Lispro [humaLOG Kwikpen] See Protocol SQ AC-TID@08,12,16 Aspirin 81 mg PO DAILY@0800 Clopidogrel [Plavix] 75 mg PO DAILY@1000 Melatonin 5 mg PO HS@2000 rOPINIRole HCL [Requip] 2 mg PO HS@2000 hydrALAZINE HCL [Apresoline] 25 mg PO BID@0800,1999 Thiamine [Vitamin B-1] 100 mg PO DAILY@0800 Midodrine [ProAmatine] 5 mg PO BID@0800,1600 PRN PRN Reason: SBP<110 Gabapentin [Neurontin] 100 mg PO BID@0500,1700 Docusate [Colace] 100 mg PO BID@0800,1999 Multivitamins, Thera [Multivitamin (formulary)] 1 tab PO DAILY@0800 Calcium Acetate [PhosLo] 667 mg PO TID-W/MEALS tab Levothyroxine Sodium [Synthroid] 75 mcg PO DAILY@0600 Atorvastatin [Lipitor] 40 mg PO HS@2000 Folic Acid 1 mg PO DAILY@0800 Pantoprazole [Protonix] 40 mg PO DAILY@0800 Changed HYDROcodone/APAP 7.5-325MG [Denton 7.5-325] 1 tab PO Q6H PRN #12 tab PRN Reason: MODERATE PAIN Discontinued ALPRAZolam [Xanax] 0.25 mg PO MOWEFR@0500 Furosemide [Lasix] 80 mg PO TID@0600,1399,1999 Discharge Medication List Ipratropium-Albuterol Nebulize [Duoneb 0.5 mg-3 mg/3 ml Soln] 3 ml INHALATION RT-Q6H PRN 10/09/23 [History] Multivitamins, Thera [Multivitamin (formulary)] 1 tab PO DAILY@0800 10/09/23 [History] Calcium Acetate [PhosLo] 667 mg PO TID-W/MEALS tab 10/21/23 [Rx] Insulin Lispro [humaLOG Kwikpen] See Protocol SQ AC-TID@08,12,16 11/21/23 [History] Levothyroxine Sodium [Synthroid] 75 mcg PO DAILY@0600 11/21/23 [History] Aspirin 81 mg PO DAILY@0801/03/24 [History] Atorvastatin [Lipitor] 40 mg PO HS@199901/03/24 [History] Clopidogrel [Plavix] 75 mg PO DAILY@99901/03/24 [History] Docusate [Colace] 100 mg PO BID@0800,199901/03/24 [History] Folic Acid 1 mg PO DAILY@0801/03/24 [History] Gabapentin [Neurontin] 100 mg PO BID@0500,1700 01/03/24 [History] Melatonin 5 mg PO HS@199901/03/24 [History] Midodrine [ProAmatine] 5 mg PO BID@0800,1600 PRN 01/03/24 [History] Pantoprazole [Protonix] 40 mg PO DAILY@0801/03/24 [History] Thiamine [Vitamin B-1] 100 mg PO DAILY@0801/03/24 [History] hydrALAZINE HCL [Apresoline] 25 mg PO BID@0800,199901/03/24 [History] rOPINIRole HCL [Requip] 2 mg PO HS@199901/03/24 [History] Amoxic-Pot Clav 500-125 mg [Augmentin 500-125 mg] 1 each PO BID 5 Days tab 01/10/24 [Rx] Darbepoetin Frantz [Aranesp] 40 mcg SQ Q7D each 01/10/24 [Rx] HYDROcodone/APAP 7.5-325MG [Denton 7.5-325] 1 tab PO Q6H PRN #12 tab 01/10/24 [Rx] Torsemide [Demadex] 40 mg PO DAILY tab 01/10/24 [Rx] Pantoprazole [Protonix] 40 mg PO AC-BRKFST tab 01/13/24 [Rx] Follow up Appointment(s)/Referral(s): Yonas Marlow MD [STAFF PHYSICIAN] - 10 Days Discharge Disposition: TRANSFER TO SNF/ECF
[2024-01-13 15:54] VITALS: BMI 23.6
[2024-01-13 16:23] VITALS: TEMP 97.6
[2024-01-13 16:34] LABS: Glucose,Whole Blood 283 mg/dL (70-110)
--- NOTE | 2024-01-13 18:34 | P.PN ---
Subjective Patient is seen for follow-up for hemodialysis dependent acute kidney injury currently oliguric. Patient is seen on hemodialysis. Tolerating treatment well. Objective - Vital Signs Vital signs: Vital Signs Temp 97.6 F 01/13/24 16:22 Pulse 86 01/13/24 16:22 Resp 20 01/13/24 16:22 BP 101/69 01/13/24 16:22 Pulse Ox 98 01/13/24 16:22 FiO2 40 01/05/24 17:00 Intake & Output 01/12/24 01/13/24 01/13/24 18:59 06:59 18:59 Intake Total 1058 400 Output Total 6400 Balance 1058 -6000 Weight 60.5 kg 60.5 kg Intake: Oral 1058 Hemodialysis 400 Output: Hemodialysis 3400 Hemodialysis Net Amount 3000 Other: Voiding Method Bedside Commode Bedside Commode Bedside Commode # Voids 1 2 # Bowel Movements 1 1 1 - Exam Patient is Awake comfortable Alert oriented x 3 Examination of the heart S1 and S2 Examination of the lungs bilateral breath sounds are heard Abdomen is soft Examination lower extremity shows edema 1+ bilaterally, improving - Labs CBC & Chem 7: 01/13/24 07:38 01/13/24 07:38 Labs: Abnormal Lab Results - Last 24 Hours (Table) 01/12/24 01/13/24 01/13/24 Range/Units 20:15 05:48 07:38 RBC 2.86 L (3.80-5.40) m/uL Hgb 7.8 L (11.4-16.0) gm/dL Hct 26.8 L (34.0-46.0) % MCHC 29.1 L (31.0-37.0) g/dL RDW 18.4 H (11.5-15.5) % Lymphocytes # (Manual) 0.97 L (1.0-4.8) k/uL Metamyelocytes # (Man) 0.06 H (0) k/uL Myelocytes # (Manual) 0.06 H (0) k/uL Sodium (137-145) mmol/L Potassium (3.5-5.1) mmol/L BUN (7-17) mg/dL Creatinine (0.52-1.04) mg/dL Glucose (74-99) mg/dL POC Glucose (mg/dL) 301 H 131 H (70-110) mg/dL Alkaline Phosphatase (38-126) U/L 01/13/24 01/13/24 01/13/24 Range/Units 07:38 11:24 16:32 RBC (3.80-5.40) m/uL Hgb (11.4-16.0) gm/dL Hct (34.0-46.0) % MCHC (31.0-37.0) g/dL RDW (11.5-15.5) % Lymphocytes # (Manual) (1.0-4.8) k/uL Metamyelocytes # (Man) (0) k/uL Myelocytes # (Manual) (0) k/uL Sodium 135 L (137-145) mmol/L Potassium 5.8 H (3.5-5.1) mmol/L BUN 58 H (7-17) mg/dL Creatinine 3.44 H (0.52-1.04) mg/dL Glucose 109 H (74-99) mg/dL POC Glucose (mg/dL) 150 H 283 H (70-110) mg/dL Alkaline Phosphatase 175 H (38-126) U/L Assessment and Plan Assessment: 1. Acute kidney injury secondary to ATN secondary to cardiorenal syndrome, sepsis, hemodialysis dependent. Permacath placed January 09, 2024. 2. Status post cardiac arrest. 3. Volume overload. Improved with ultrafiltration. 4. Chronic kidney disease stage IV with baseline creatinine 2-2.5 secondary to cardiorenal syndrome, sepsis. 5. Anemia of chronic kidney disease. On Aranesp. 6. Chronic kidney disease mineral bone disease maintained on PhosLo. Phosphorus level 5.5 dated January 04, 2024. 7. Diabetes mellitus. 8. Recent MRSA infection. On antibiotics. 9. Abdominal pain. Ultrasound showed gallbladder wall thickening. Surgery following. 10. Hypervolemic hyponatremia. Improved postdialysis. Plan: Continue to maintain hemodialysis on Saturday schedule. Continue Augmentin
[2024-01-13 19:56] LABS: Glucose,Whole Blood 221 mg/dL (70-110)
[2024-01-13 23:26] VITALS: RESP 18
[2024-01-14 06:09] LABS: Glucose,Whole Blood 226 mg/dL (70-110)
--- NOTE | 2024-01-14 11:22 | P.PN ---
Subjective Progress Note Date: 01/14/24 Principal diagnosis: Cardiac arrest. Patient was seen today on 01/06/2024, patient remains in the ICU, she was extubated yesterday at 5 PM on 01/05/2024. Apparently the patient coded for about 4 minutes at the time she was brought into the ICU and she was having a left IJ catheter placement. The cath was basically for dialysis, and now she has a right femoral catheter. Patient is being treated for urinary tract infection secondary to Enterobacter, she is receiving Zosyn, patient seems to be doing well today, seems to be a bit slow, but overall she is doing well and she is on 2 L nasal cannula hemodynamically stable, not in any distress. WBC count is 4.6, hemoglobin 7.4 basic metabolic profile is normal BUN is 27 creatinine 2.14. Chest x-ray this morning showed mild interstitial pulmonary edema with small left pleural effusion and atelectasis Patient was evaluated today on 01/07/2024, patient is doing well, she was transferred yesterday out of the ICU, and now she is on 3 S. Patient is doing great, relatively asymptomatic, no active pulmonary symptoms, patient is being followed by nephrology and still undergoing hemodialysis. WBC count is 4.2 hemoglobin 7.6 electrolytes are normal BUN is 14 creatinine 1.84 chest x-ray yesterday showed some mild interstitial edema and small left pleural effusion with atelectasis. Patient was evaluated today on 01/08/2024, patient is doing well, receiving hemodialysis earlier this morning, she is on room air, she has some vague aches and pains. But overall seems to be doing well. WBC count is 6.1 hemoglobin 8.1 sodium is low at 126 BUN is 21 creatinine 2.54, that being addressed by nephrology. Patient was again today on 01/09/2024, patient is doing well, no active pulmonary symptoms. Patient had another dialysis catheter placed in the right subclavian area placed by vascular surgery, and I believe her right groin dialysis catheter has been removed patient remains on hemodialysis. She has no cough no wheezing no shortness of breath, she has some vague right upper quadrant pain, on physical examination did not seem to be surgical. WBC count is 5.5 hemoglobin 7.5 electrolytes are normal BUN is 14 creatinine 1.98 Seen today on 01/10/2024, patient is doing great, asymptomatic, being considered for discharge home today after dialysis. I will clear the patient for discharge if cleared by other consultants. Seen today on 01/11/2024, patient did not end up getting discharged yesterday, apparently had issues with bed situation at [facility]. May still get discharged sometime today if authorization takes place, in the meantime patient is asymptomatic no cough no wheezing no shortness of breath. She is on room air, asymptomatic. Patient was seen today on 01/12/2024, doing quite well, asymptomatic, hoping to be discharged home in the next 24 hours. No active pulmonary symptoms. Progress note dated January 13, 2024. The patient is seen today in room 352. The patient is receiving hemodialysis today, with a goal of removal of 3 L of fluid. The patient is hoping to be discharged, to one of the local nursing homes. The patient is on room air. She is not receiving any IV fluids. Current labs include a white count 5.7, hemoglobin 7.8, hematocrit 26.8, and a normal platelet count. Sodium 135, po tassium 5.8, chlorides 100, CO2 23, BUN 58, creatinine 3.44. Glucose is 150. Albumin is 3.5. Sputum sampling on January 02 was positive for Lacy. In addition, urine specimens on January 02 were positive for Enterobacter cloacae. Progress note dated January 14, 2024. 58-year-old female seen in room 352. The patient is currently on room air. She is not receiving any IV fluids. She is hoping to be discharged soon. No new labs today. She did have hemodialysis yesterday. The goal was removal of 3 L. The labs from yesterday have been reviewed. Objective - Vital Signs Vital signs: Vital Signs Temp 97.6 F 01/13/24 20:15 Pulse 80 01/14/24 10:43 Resp 18 01/14/24 10:43 BP 121/85 01/14/24 08:24 Pulse Ox 95 01/14/24 08:24 FiO2 40 01/05/24 17:00 Intake & Output 01/13/24 01/14/24 01/14/24 18:59 06:59 18:59 Intake Total 400 118 Output Total 6400 Balance -6000 118 Weight 60.5 kg 52.9 kg Intake: Oral 118 Hemodialysis 400 Output: Hemodialysis 3400 Hemodialysis Net Amount 3000 Other: Voiding Method Bedside Commode Bedside Commode Bedside Commode # Voids 2 # Bowel Movements 1 1 - Exam No acute distress, oriented 3. Room air saturation is 95 %. HEENT examination is grossly unremarkable. Mucous membranes are moist. No oral lesions. Neck supple. Full range of motion. No adenopathy thyromegaly or neck vein distention. Cardiovascular examination reveals regular rhythm rate. S1-S2 normal. No S3 or S4. No discernible murmur noted. Heart rate is 80 bpm. Lungs reveal clear breath sounds. Breath sounds are equal bilaterally. No adventitious lung sounds including wheezes rhonchi or crackles. Abdomen soft bowel sounds are heard. No masses or tenderness. Extremities are intact. No cyanosis clubbing or edema. Skin is without rash or lesion. Neurologic examination is brief but nonfocal. - Labs CBC & Chem 7: 01/13/24 07:38 01/13/24 07:38 Labs: Abnormal Lab Results - Last 24 Hours (Table) 01/13/24 01/13/24 01/13/24 Range/Units 11:24 16:32 19:48 POC Glucose (mg/dL) 150 H 283 H 221 H (70-110) mg/dL 01/14/24 Range/Units 05:51 POC Glucose (mg/dL) 226 H (70-110) mg/dL Assessment and Plan Assessment: Acute PEA cardiac arrest, requiring brief CPR, intubation, and mechanical v entilation. End-stage renal disease, currently on hemodialysis. Methicillin-resistant Staphylococcus aureus septicemia. Acute hypoxemic respiratory failure. Congestive heart failure, with preserved LV function. Type 2 diabetes mellitus. History of chronic obstructive pulmonary disease. Coronary artery disease, with previous PCI of the right coronary artery. Previous episode of cardiac arrest, July 2023. History of hypertension. History of hyperlipidemia. Chronic wounds, lower extremities. History of rectal prolapse. Plan: Plan dated January 13, 2024. The patient is currently on room air. She is not requiring any IV fluids. The patient is receiving hemodialysis today, with the goal of removing 3 L. The patient is hoping to be discharged in the near future. Discharge planning is underway. We will continue to follow the patient, make recommendations along the way. Labs, x-rays, and all medications have been reviewed. Plan dated January 14, 2024. The patient is seen today in room 352. She is on room air. No IV fluids. She is sitting in a chair next to the hospital bed. She did have hemodialysis yesterday. The goal is to remove 3 L of fluid. The patient is hoping to be discharged today. No new labs today. The labs from yesterday have been reviewed. We will continue to follow the patient, should she not be discharged. Time with Patient: Less than 30
[2024-01-14 11:33] LABS: Glucose,Whole Blood 327 mg/dL (70-110)
--- NOTE | 2024-01-14 12:12 | P.PN ---
Subjective Progress Note Date: 01/14/24 Principal diagnosis: Reason for follow-up is recent MRSA bacteremia and possible cholecystitis Patient is a 58-year-old female with a past medical history significant for diabetes mellitus hypertension hyperlipidemia end-stage renal disease on dialysis recently treated for MRSA bacteremia related to the dialysis catheter which has been discontinued now being admitted to the hospital after apparently patient pulled out her dialysis catheter and subsequently did have a cardiac arrest during placement of the new catheter. On today's evaluation that is 01/14/2024, Patient is afebrile this morning patient denies having any chest pain shortness of breath or cough, the patient is breathing comfortably and currently on room air, patient denies any abdominal pain no diarrhea no nausea no vomiting, denies pain to the right heel wound. No new lab has been obtained today currently waiting for placement Objective - Vital Signs Vital signs: Vital Signs Temp 97.6 F 01/13/24 20:15 Pulse 80 01/14/24 10:43 Resp 18 01/14/24 10:43 BP 121/85 01/14/24 08:24 Pulse Ox 95 01/14/24 08:24 FiO2 40 01/05/24 17:00 Intake & Output 01/13/24 01/14/24 01/14/24 18:59 06:59 18:59 Intake Total 400 118 Output Total 6400 Balance -6000 118 Weight 60.5 kg 52.9 kg Intake: Oral 118 Hemodialysis 400 Output: Hemodialysis 3400 Hemodialysis Net Amount 3000 Other: Voiding Method Bedside Commode Bedside Commode Bedside Commode # Voids 2 # Bowel Movements 1 1 - Exam GENERAL DESCRIPTION: Middle-aged female up in bed in no distress RESPIRATORY SYSTEM: Unlabored breathing , decreased breath sounds at bases HEART: S1 S2 regular rate and rhythm , ABDOMEN: Soft , no tenderness EXTREMITIES: No edema feet - Labs CBC & Chem 7: 01/13/24 07:38 01/13/24 07:38 Labs: Abnormal Lab Results - Last 24 Hours (Table) 01/13/24 01/13/24 01/14/24 Range/Units 16:32 19:48 05:51 POC Glucose (mg/dL) 283 H 221 H 226 H (70-110) mg/dL 01/14/24 Range/Units 11:32 POC Glucose (mg/dL) 327 H (70-110) mg/dL Assessment and Plan (1) History of MRSA infection Current Visit: Yes Status: Acute Code(s): Z86.14 - PERSONAL HISTORY OF METHICILLIN RESIS STAPH INFECTION SNOMED Code(s): 816556875 (2) Type 2 diabetes mellitus with foot ulcer Current Visit: No Status: Acute Code(s): E11.621 - TYPE 2 DIABETES MELLITUS WITH FOOT ULCER; L97.509 - NON-PRESSURE CHRONIC ULCER OTH PRT UNSP FOOT W UNSP SEVERITY SNOMED Code(s): 2881181047573 Plan: 1patient recently did have a dialysis catheter infection with MRSA bacteremia patient has clear her bacteremia on her last visit no being readmitted to hospital after pending the patient pulled out her dialysis catheter subsequently did have a cardiac arrest while placement of another dialysis catheter patient did have a blood culture done this admission on 01/03/2024 that has been negative patient has been afebrile and did have normal white count meaning adequate treatment of underlying previous MRSA bacteremia and no need for further vancomycin which has been discontinued. 2-patient did have a right heel diabetic foot ulcer with no significant cellulitis recommend local wound care with the dry Aquacel dressing change every 48 hour and keep the area of the pressure 3-patient to continue oral Augmentin for about 7 days on discharge Dictation was produced using [employer] dictation software. please excuse any grammatical, word or spelling errors. Time with Patient: Less than 30
[2024-01-14 12:15] VITALS: BP 128/78; PULSE 74
--- NOTE | 2024-01-14 12:32 | P.PN ---
Subjective Progress Note Date: 01/14/24 CHIEF COMPLAINT: Cardiac arrest HISTORY OF PRESENT ILLNESS: Surgical service following in regards to patient's abdominal pain and cholecystitis. Patient tolerating diet. She denies any abdominal pain at this time. Patient being discharged today. She received her insurance authorization for ECF placement. Afebrile. PHYSICAL EXAM: VITAL SIGNS: Reviewed. GENERAL: no acute distress. ABDOMEN: Soft. Nondistended. Nontender NEUROLOGIC: awake and alert ASSESSMENT: 1. Acute on chronic cholecystitis 2. Chronic rectal prolapse 3. Acute PEA cardiac arrest on admission 4. History of coronary artery disease and cardiac stent in May PLAN: -No surgical intervention planned at this time -Follow-up outpatient with Dr. Marlow -Continue low-fat diet -Surgical service will sign off. Please call with any questions or concerns Physician Slasher Sawyer note has been reviewed by physician. Signing provider agrees with the documented findings, assessment, and plan of care. Objective - Vital Signs Vital signs: Vital Signs Temp 97.6 F 01/13/24 20:15 Pulse 74 01/14/24 12:13 Resp 18 01/14/24 12:13 BP 128/78 01/14/24 12:13 Pulse Ox 97 01/14/24 12:13 FiO2 40 01/05/24 17:00 Intake & Output 01/13/24 01/14/24 01/14/24 18:59 06:59 18:59 Intake Total 400 118 Output Total 6400 Balance -6000 118 Weight 60.5 kg 52.9 kg Intake: Oral 118 Hemodialysis 400 Output: Hemodialysis 3400 Hemodialysis Net Amount 3000 Other: Voiding Method Bedside Commode Bedside Commode Bedside Commode # Voids 2 # Bowel Movements 1 1 - Labs CBC & Chem 7: 01/13/24 07:38 01/13/24 07:38 Labs: Abnormal Lab Results - Last 24 Hours (Table) 01/13/24 01/13/24 01/14/24 Range/Units 16:32 19:48 05:51 POC Glucose (mg/dL) 283 H 221 H 226 H (70-110) mg/dL 01/14/24 Range/Units 11:32 POC Glucose (mg/dL) 327 H (70-110) mg/dL
--- NOTE | 2024-01-14 12:48 | P.PN ---
Subjective Progress Note Date: 01/13/24 HISTORY OF PRESENT ILLNESS: This is a 58-year-old female with a previous medical history signif icant for coronary artery disease status post PCI of the RCA 2023 with ischemic cardiomyopathy, hypertension and hypertensive cardiovascular disease, hyperlipidemia, diabetes mellitus type 2 uncontrolled, fracture of the right medial and lateral malleolus, anemia of chronic kidney disease, COPD, epistaxis, chronic kidney disease stage 4 due to cardiorenal syndrome she ended up getting started on dialysis on the last hospital admission about a month ago when she was admitted to the hospital with fluid overload and acute systolic heart failure and worsening renal failure despite aggressive diuresis, and using significant amount of diuretics, patient ended up going on dialysis she had a permanent catheter placed in the right internal jugular vein, and patient developed to have a significant MRSA bacteremia that required removal of the dialysis catheter and subsequently she was treated with IV antibiotic for a total I believe of 4 weeks of IV antibiotic in the form of daptomycin, patient b lood cultures normalizes, the patient ended up having another permacatheter placed in the left internal jugular vein, and the patient was discharged to [facility] and she has been there she has been going to dialysis at [facility] and she has been doing fine apparently patient underwent dialysis yesterday, and she had pulled her dialysis catheter today she ended up coming to the ER for evaluation she was taken to the [employer] for replacement of the the left internal jugular catheter but the patient became quite agitated, and she went into pulseless electrical activity she did receive 2 epinephrine, she was intubated at the [employer] [facility], she was admitted to the ICU, she was admitted under my service, with consultation to Dr. Romo from intensive care unit, patient is currently being seen in the ICU, she is currently on the ventilator, she is sedated with Precedex, and had a chest x-ray in the ICU that showed evidence of significant pulmonary vascular congestion as well as bilateral pulmonary infiltrates, patient may have had aspirated, she will be started on Zosyn 3.375 g of piggyback every 8 hours as well as vancomycin pharmacy to dose its peak and trough, patient will have a sputum culture, blood culture, urine culture, and she will be seen in consultation by paring machine operator, she will be seen in consultation by infectious disease Dr. Subramanian as well. 01/05: Patient is sitting up in a chair in no apparent distress, patient underwent hemodialysis she just had 4 L taken out, she continues to have significant restless leg syndrome and she has been getting ropinirole 2 mg at bedtime, we will continue to monitor the patient very closely, patient has been maintained o n vancomycin as well as Zosyn for now, we will continue to monitor the patient very closely, monitor the culture, the plan is for the patient to be transferred back to [facility] when the patient is more stable. Likely the patient will be moved to monitored bed in the next 24 hours. 01/06: Send has significant restless leg overnight we will increase her ropinirole to 2 mg orally twice every day, monitor the patient very closely, patient is scheduled to go for hemodialysis tomorrow morning, urine culture showed evidence of Enterobacter cloacae that is resistant to a lot of antibiotic except for Zosyn which she is on sputum culture showed Lacy albicans which considered to be normal ananya, maintain the patient on current IV antibiotic, discontinue vancomycin and Zosyn tomorrow morning and start the patient on Augmentin 500/125 mg orally twice every day for the next 7 days. Patient most likely will be able to be discharged back to [facility] tomorrow morning. 01/07: Patient is sitting up in the chair in no apparent distress, she had dialysis today, she denies any chest pain, shortness of breath, she continues to have some swelling both lower extremities, she she did have significant amount of right upper quadrant abdominal pain that started 1:00 in the morning associate with nausea but no vomiting, and did have have abdominal x-ray did not show evidence of acute abnormalities, ultrasound of the abdomen showed evidence of increased thickness of the gallbladder with possible cholecystitis patient has been on Zosyn we will continue with that, patient was seen in consultation by general surgery it was recommended for the patient to have laparoscopic cholecystectomy after she is cleared by cardiology. 01/08: Patient will not be going for laparoscopic cholecystectomy as the patient is a high risk for surgery at this point in time, and the patient is aware of that, therefore the patient can be discharged back to [facility] in the next 24 hours after hemodialysis, patient is having some issues with bleeding from the abdominal wall where the heparin injection is given we will discontinue heparin injection completely, continue to apply pressure dressing, monitor the patient's hemoglobin over the next 24 hours, patient will be kept on Zosyn for now, hopefully she will be able to switch to oral Augmentin 500/125 mg orally twice every day for the next 7 days. 01/09: Patient sitting up in a chair in no apparent distress, she feels itchy in her back, her bleeding in the abdomen stopped after stopping heparin, she did have dialysis today, she did have 3 L removed, patient's unfortunately did not get the prior authorization for her to go back to [facility] therefore she is staying in the hospital for Saturday, continue current treatment plan, discontinue IV antibiotic, continue Augmentin 500/125 mg orally twice every day for the next 7 days, patient will likely be discharged on Saturday. 01/10: Patient is sitting up in a chair in no apparent distress, yesterday she was complaining some pain over the permacatheter is in the right IJ, has no fever or chills at this time, her pain medication was increased, she denies any abdominal pain, nausea vomiting or diarrhea at this time, she is tolerating her diet very well, she is awaiting the prior authorization from her insurance to go to [facility] hopefully on Saturday. 01/11: Patient sitting up in bed in no apparent distress, she denies any unusual symptoms today, she continues to be on current pain management, patient scheduled for dialysis tomorrow morning, and then after that she can be discharged to [facility], we will continue to follow-up with the patient very closely recheck her labs tomorrow morning. No new issues 01/12: Did have her hemodialysis, she is waiting patiently to get out of the hospital, we are waiting for the prior authorization from the insurance company so far she has not had any approval to go to [facility] we will continue to follow the patient very closely. Hopefully she will be able to discharge tomorrow morning REVIEW OF SYSTEMS: Constitutional: No documented fever, no chills, no night sweats. No weight change. No weakness, fatigue or lethargy. No daytime sleepiness. EENT: No headache. No blurred vision or double vision, no loss of vision. No loss of Hearing, no ringing in the ears, no dizziness. No nasal drainage or congestion. No epistaxis. No sore throat. Lungs: No shortness of breath, no cough, no sputum production. No wheezing. Reports dyspnea with activity. Cardiovascular: No chest pain, no lower extremity edema. No palpitations. No paroxysmal nocturnal dyspnea. No orthopnea. No lightheadedness or dizziness. No syncopal episodes. Abdominal: Reports no abdominal pain. No nausea, vomiting. No diarrhea. No constipation. No bloody or tarry stools reports loss of appetite. Genitourinary: No dysuria, increased frequency, urgency. No urinary retention. [place] catheter in place. Musculoskeletal: No myalgias. No muscle weakness, positive for gait dysfunction, no frequent falls. No back pain. No neck pain. Integumentary: Right heel wound appears to have a clean base no lesions. No rash or pruritus. No unusual bruising. No change in hair or nails. Neurologic: No aphasia. No facial droop. No change in mentation. No head injury. No headache. No paralysis. No paresthesia. Psychiatric: No depression. No anxiety. No mood swings. Endocrine: No abnormal blood sugars. No weight change. PHYSICAL EXAMINATION: General: 58-year-old female sitting up in bed in no apparent distress. HEENT: Head is atraumatic, normocephalic, pupils were equal round , sclera nonicteric, conjunctivae were pale, mucous membranes of the mouth are somewhat dry. Neck: Supple, Increased JVP, normal carotid upstroke bilaterally, no lymphadenopathy, right IJ catheter in place. Chest: Decreased breath sounds at the bases, few rhonchi, no expiratory wheezes, no chest wall tenderness, no intercostal retractions. Heart: First heart sound is normal, second heart sound is normal there is systolic ejection murmur 2/6 located in the left sternal border. Abdomen: Soft, nontender, nondistended, positive bowel sounds increased abdominal wall edema. Extremities: There is +1 edema no calf tenderness DP +1 bilaterally. Right heel wound about 3.5 x 4.1 x 0.5 cm with minimal fibrinous cap Neurologic examination: Patient is awake alert and oriented x 3, cranial nerves III to XII appear gross intact, muscle power for 4 out of 5 in bilateral upper extremities and 3 out of 5 in the bilateral lower extremities. ASSESSMENT AND PLAN: 1. Acute hypoxemic vent dependent respiratory failure due to cardiac arrest/pulseless electrical activity status post 2 epinephrine via ACLS protocol. Patient since was extubated and she is currently on room air. 2. Acute on chronic systolic heart failure. Continue with hemodialysis Saturday and Saturday, monitor the patient input and output and daily weight continue hydralazine 25 mg orally twice every day. 3. Acute hypoxemic respiratory failure due to cardiac arrest as well as possible aspiration pneumonia. Continue patient on Augmentin 500/125 mg orally twice every day continue pulmonary toileting. 4. Coronary artery disease status post PCI of the RCA. Continue patient on aspirin 81 mg once every day, Plavix 75 mg once every day, atorvastatin 40 mg orally once every day. 5. Hypertension and hypertensive cardiovascular disease. Continue hydralazine 25 mg orally twice every day, monitor the patient blood pressure very closely. 6. Mixed hyperlipidemia. Continue patient on atorvastatin 40 mg orally once every day, monitor lipid panel, keep LDL 55-70. 7. Diabetes mellitus type 2. Continue patient on sliding scale insulin. 8. Close leg syndrome. Continue ropinirole 2 mg orally twice every day. 9. Anemia of chronic kidney disease. Continue to monitor the patient CBC. 10. Hypothyroidism. Continue levothyroxine 75 mcg orally once every day. 11. COPD exacerbation continue patient DuoNeb 3 mL nebulization 4 times every day, patient is currently on room air. 12. Chronic hypoxemic respiratory failure due to combination of ischemic cardiomyopathy and COPD. Continue treatment as in the first and second paragraph. 13. Subacute fracture of the medial and lateral malleolus currently in boot no surgical intervention is planned 14. GERD. Continue pantoprazole 40 mg orally once every day. 15. DVT prophylaxis. Heparin was discontinued due to abdominal wall bleeding. 16. right upper quadrant abdominal pain likely related to dysfunctional gallbladder with cholelithiasis. Patient is a high surgical risk therefore no surgery is contemplated. 17. Medical debility. Continue with physical therapy and Occupational Therapy evaluation, the plan is to transfer the patient back to [facility] 18. Right foot wound cleanse the wound with saline and apply Aquacel silver and cover with Optifoam change dressing Saturday and Saturday. 19. Superficial abdominal wall bleeding likely related to heparin injection. Discontinue heparin completely continue apply pressure dressing. 20. [facility] tomorrow morning. Objective - Vital Signs Vital signs: Vital Signs Temp 97.6 F 01/13/24 20:15 Pulse 74 01/14/24 12:13 Resp 18 01/14/24 12:13 BP 128/78 01/14/24 12:13 Pulse Ox 97 01/14/24 12:13 FiO2 40 01/05/24 17:00 Intake & Output 01/13/24 01/14/24 01/14/24 18:59 06:59 18:59 Intake Total 400 118 Output Total 6400 Balance -6000 118 Weight 60.5 kg 52.9 kg Intake: Oral 118 Hemodialysis 400 Output: Hemodialysis 3400 Hemodialysis Net Amount 3000 Other: Voiding Method Bedside Commode Bedside Commode Bedside Commode # Voids 2 # Bowel Movements 1 1 - Labs CBC & Chem 7: 01/13/24 07:38 01/13/24 07:38 Labs: Abnormal Lab Results - Last 24 Hours (Table) 01/13/24 01/13/24 01/14/24 Range/Units 16:32 19:48 05:51 POC Glucose (mg/dL) 283 H 221 H 226 H (70-110) mg/dL 01/14/24 Range/Units 11:32 POC Glucose (mg/dL) 327 H (70-110) mg/dL
[2024-01-14 13:25] LABS: Anisocytosis Slight; HCT 27.5 % (34.0-46.0); HGB 7.9 gm/dL (11.4-16.0); Hypochromasia Marked; MCH 27.1 pg (25.0-35.0); MCHC 28.8 g/dL (31.0-37.0); MCV 94.2 fL (80.0-100.0); Macrocytosis Slight; Mean Platelet Volume 9.3; Platelet Count 306 k/uL (150-450); Poikilocytosis Slight; RBC 2.92 m/uL (3.80-5.40); RDW 18.6 % (11.5-15.5); WBC 6.2 k/uL (3.8-10.6)
[2024-01-14 13:41] LABS: ALT 11 U/L (4-34); AST 24 U/L (14-36); African American GFR (CKD) 23 (>60 ml/min/1.73 sqM); Albumin 3.8 g/dL (3.5-5.0); Alkaline Phosphatase 191 U/L (38-126); Anion Gap 12 mmol/L; Blood Urea Nitrogen 39 mg/dL (7-17); Calcium 8.9 mg/dL (8.4-10.2); Carbon Dioxide 24 mmol/L (22-30); Chloride 95 mmol/L (98-107); Glucose 316 mg/dL (74-99); Non-African American GFR(CKD) 20 (>60 ml/min/1.73 sqM); Potassium 4.8 mmol/L (3.5-5.1); Sodium 131 mmol/L (137-145); Total Bilirubin 0.8 mg/dL (0.2-1.3); Total Protein 8.3 g/dL (6.3-8.2)
[2024-01-14 14:49] LABS: Basophils # (M) 0.06 k/uL (0-0.2); Eosinophils # (M) 0.25 k/uL (0-0.7); Lymphocytes # (M) 0.93 k/uL (1.0-4.8); Monocytes # (M) 0.74 k/uL (0-1.0); Neutrophils # (M) 4.22 k/uL (1.3-7.7); Neutrophils % (M) 68 %; Nucleated Red Blood Cells 0 /100 WBC (0-0); Total Cells Counted 100
--- NOTE | 2024-01-14 17:42 | P.PN ---
Subjective Patient is seen for follow-up for hemodialysis dependent acute kidney injury currently oliguric. Awaiting discharge to rehab. Scheduled for dialysis in a.m. Objective - Vital Signs Vital signs: Vital Signs Temp 97.6 F 01/13/24 20:15 Pulse 74 01/14/24 12:13 Resp 18 01/14/24 12:13 BP 128/78 01/14/24 12:13 Pulse Ox 97 01/14/24 12:13 FiO2 40 01/05/24 17:00 Intake & Output 01/13/24 01/14/24 01/14/24 18:59 06:59 18:59 Intake Total 400 118 Output Total 6400 Balance -6000 118 Weight 60.5 kg 52.9 kg Intake: Oral 118 Hemodialysis 400 Output: Hemodialysis 3400 Hemodialysis Net Amount 3000 Other: Voiding Method Bedside Commode Bedside Commode Bedside Commode # Voids 2 # Bowel Movements 1 1 - Exam Patient is Awake comfortable Alert oriented x 3 Examination of the heart S1 and S2 Examination of the lungs bilateral breath sounds are heard Abdomen is soft Examination lower extremity shows edema 1+ bilaterally, improving - Labs CBC & Chem 7: 01/14/24 12:59 01/14/24 12:59 Labs: Abnormal Lab Results - Last 24 Hours (Table) 01/13/24 01/14/24 01/14/24 Range/Units 19:48 05:51 11:32 RBC (3.80-5.40) m/uL Hgb (11.4-16.0) gm/dL Hct (34.0-46.0) % MCHC (31.0-37.0) g/dL RDW (11.5-15.5) % Lymphocytes # (Manual) (1.0-4.8) k/uL Sodium (137-145) mmol/L Chloride (98-107) mmol/L BUN (7-17) mg/dL Creatinine (0.52-1.04) mg/dL Glucose (74-99) mg/dL POC Glucose (mg/dL) 221 H 226 H 327 H (70-110) mg/dL Alkaline Phosphatase (38-126) U/L Total Protein (6.3-8.2) g/dL 01/14/24 01/14/24 Range/Units 12:59 12:59 RBC 2.92 L (3.80-5.40) m/uL Hgb 7.9 L (11.4-16.0) gm/dL Hct 27.5 L (34.0-46.0) % MCHC 28.8 L (31.0-37.0) g/dL RDW 18.6 H (11.5-15.5) % Lymphocytes # (Manual) 0.93 L (1.0-4.8) k/uL Sodium 131 L (137-145) mmol/L Chloride 95 L (98-107) mmol/L BUN 39 H (7-17) mg/dL Creatinine 2.56 H (0.52-1.04) mg/dL Glucose 316 H (74-99) mg/dL POC Glucose (mg/dL) (70-110) mg/dL Alkaline Phosphatase 191 H (38-126) U/L Total Protein 8.3 H (6.3-8.2) g/dL Assessment and Plan Assessment: 1. Acute kidney injury secondary to ATN secondary to cardiorenal syndrome, sepsis, hemodialysis dependent. Permacath placed January 09, 2024. 2. Status post cardiac arrest. 3. Volume overload. Improved with ultrafiltration. 4. Chronic kidney disease stage IV with baseline creatinine 2-2.5 secondary to cardiorenal syndrome, sepsis. 5. Anemia of chronic kidney disease. On Aranesp. 6. Chronic kidney disease mineral bone disease maintained on PhosLo. Phosphorus level 5.5 dated January 04, 2024. 7. Diabetes mellitus. 8. Recent MRSA infection. On antibiotics. 9. Abdominal pain. Ultrasound showed gallbladder wall thickening. Surgery following. 10. Hypervolemic hyponatremia. Improved postdialysis. Plan: Continue to maintain hemodialysis on Saturday schedule. Continue Augmentin
== END 2024-01-14 14:29 | DRG 673 ==
LOC: EC 08:46 → 2SICU 14:09 → 3SCARD 01-06 18:48
PROVIDERS: ADMIT Internal Medicine; ATTEND Internal Medicine
PROC: 02HV33Z Insertion of Infusion Device into Superior Vena Cava, Percutaneous Approach (ICD-10-PCS; 2024-01-03)
PROC: 0BH17EZ Insertion of Endotracheal Airway into Trachea, Via Natural or Artificial Opening (ICD-10-PCS; 2024-01-03)
PROC: 5A1945Z Respiratory Ventilation, 24-96 Consecutive Hours (ICD-10-PCS; 2024-01-03)
PROC: 0JH63XZ Insertion of Tunneled Vascular Access Device into Chest Subcutaneous Tissue and Fascia, Percutaneous Approach (ICD-10-PCS; principal; 2024-01-03 16:05)
PROC: 02HV33Z Insertion of Infusion Device into Superior Vena Cava, Percutaneous Approach (ICD-10-PCS; 2024-01-09 07:30)
DX: T82.42XA Displacement of vascular dialysis catheter, initial encounter (principal); A41.02 Sepsis due to Methicillin resistant Staphylococcus aureus; L89.613 Pressure ulcer of right heel, stage 3; J69.0 Pneumonitis due to inhalation of food and vomit; N17.0 Acute kidney failure with tubular necrosis; I50.23 Acute on chronic systolic (congestive) heart failure; J96.21 Acute and chronic respiratory failure with hypoxia; N18.6 End stage renal disease; I97.711 Intraoperative cardiac arrest during other surgery; I13.2 Hypertensive heart and chronic kidney disease with heart failure and with stage 5 chronic kidney disease, or end stage renal disease; J44.1 Chronic obstructive pulmonary disease with (acute) exacerbation; N39.0 Urinary tract infection, site not specified; K80.12 Calculus of gallbladder with acute and chronic cholecystitis without obstruction; I42.8 Other cardiomyopathies; E87.1 Hypo-osmolality and hyponatremia; Y71.2 Prosthetic and other implants, materials and accessory cardiovascular devices associated with adverse incidents; I25.10 Atherosclerotic heart disease of native coronary artery without angina pectoris; Z95.5 Presence of coronary angioplasty implant and graft; I25.5 Ischemic cardiomyopathy; D63.1 Anemia in chronic kidney disease; E78.2 Mixed hyperlipidemia; G25.81 Restless legs syndrome; K21.9 Gastro-esophageal reflux disease without esophagitis; N18.32 Chronic kidney disease, stage 3b; F41.9 Anxiety disorder, unspecified; Y69 Unspecified misadventure during surgical and medical care; Y92.234 Operating room of hospital as the place of occurrence of the external cause; L89.522 Pressure ulcer of left ankle, stage 2; L89.151 Pressure ulcer of sacral region, stage 1; Z96.642 Presence of left artificial hip joint; M89.8X9 Other specified disorders of bone, unspecified site; Z99.2 Dependence on renal dialysis; I27.20 Pulmonary hypertension, unspecified; I25.2 Old myocardial infarction; E11.621 Type 2 diabetes mellitus with foot ulcer; E11.22 Type 2 diabetes mellitus with diabetic chronic kidney disease; E11.319 Type 2 diabetes mellitus with unspecified diabetic retinopathy without macular edema; I48.91 Unspecified atrial fibrillation; K62.3 Rectal prolapse; B96.89 Other specified bacterial agents as the cause of diseases classified elsewhere; L97.509 Non-pressure chronic ulcer of other part of unspecified foot with unspecified severity; Z99.81 Dependence on supplemental oxygen; Z79.02 Long term (current) use of antithrombotics/antiplatelets; Z79.82 Long term (current) use of aspirin; Z79.4 Long term (current) use of insulin; Z79.899 Other long term (current) drug therapy; Z79.890 Hormone replacement therapy; Z86.14 Personal history of Methicillin resistant Staphylococcus aureus infection; Z87.891 Personal history of nicotine dependence
CPT/HCPCS: 36415; 36556; 36558; 36600; 71045; 74019; 76700; 76937; 77001; 80048; 80053; 80202; 81001; 82150; 82565; 82805; 83690; 83735; 84075; 84100; 85025; 85027; 86706; 87040; 87070; 87077; 87086; 87186; 87205; 87340; 90935; 92950; 93306; 94002; 94003; 94640; 94760; 99211; 99285

== ENCOUNTER 2024-01-27 04:32 | Observation (INO) | payer MEDICARE ==
--- NOTE | 2024-01-27 05:08 | ED ---
General Adult HPI - General Source: EMS Mode of arrival: EMS Limitations: altered mental status (Acute delirium) - History of Present Illness -: hour(s) Severity scale (1-10): 0 Improves with: none Worsens with: none Associated Symptoms: denies other symptoms Treatments Prior to Arrival: none <Yefri Garcia - Last Filed: 01/27/24 07:06> - History of Present Illness -: unknown Treatments Prior to Arrival: none <Pablo Gusman - Last Filed: 02/01/24 16:52> - General Chief complaint: Recheck/Abnormal Lab/Rx Stated complaint: Hypotension Time Seen by Provider: 01/27/24 04:44 - History of Present Illness Initial comments: This patient is a 58-year-old woman who is sent in to have evaluation for hypotension. The [facility] she states for [facility]. It was noted that over the course of the past night that the patient had blood pressures as low as the 70s. Patient denies complaints on arrival. She is currently dialysis patient did have dialysis last week and normal session. (Yefri Garcia) This is a 58-year-old to the ER for evaluation of low blood pressure, dialysis patient who takes midodrine for low blood pressure concern for sepsis (aPblo Gusman) - Related Data Home Medications Medication Instructions Recorded Confirmed Ipratropium-Albuterol Nebulize 3 ml INHALATION RT-Q6H PRN 10/09/23 01/27/24 [Duoneb 0.5 mg-3 mg/3 ml Soln] Multivitamins, Thera [Multivitamin 1 tab PO DAILY 10/09/23 01/27/24 (formulary)] Insulin Lispro [humaLOG Kwikpen] See Protocol SQ AC-TID 11/21/23 01/27/24 Levothyroxine Sodium [Synthroid] 75 mcg PO DAILY@0600 11/21/23 01/27/24 Aspirin 81 mg PO DIRECTED 01/03/24 01/27/24 Atorvastatin [Lipitor] 40 mg PO HS 01/03/24 01/27/24 Clopidogrel [Plavix] 75 mg PO DAILY 01/03/24 01/27/24 Docusate [Colace] 100 mg PO BID 01/03/24 01/27/24 Folic Acid 1 mg PO DAILY 01/03/24 01/27/24 Gabapentin [Neurontin] 100 mg PO BID 01/03/24 01/27/24 Melatonin 5 mg PO HS 01/03/24 01/27/24 Midodrine [ProAmatine] 5 mg PO Q12H PRN 01/03/24 01/27/24 Thiamine [Vitamin B-1] 100 mg PO DAILY 01/03/24 01/27/24 hydrALAZINE HCL [Apresoline] 25 mg PO BID 01/03/24 01/27/24 rOPINIRole HCL [Requip] 2 mg PO HS 01/03/24 01/27/24 Acetaminophen Tab [Tylenol Tab] 500 mg PO Q4H PRN 01/27/24 01/27/24 Darbepoetin Frantz [Aranesp] 40 mcg SQ WE 01/27/24 01/27/24 HYDROcodone/APAP 7.5-325MG [[place] 1 tab PO Q6H PRN 01/27/24 01/27/24 7.5-325] Sodium Chloride [Saline Mist] 1 spray EA NOSTRIL BID 01/27/24 01/27/24 Previous Rx's Medication Instructions Recorded Calcium Acetate [PhosLo] 667 mg PO TID-W/MEALS tab 10/21/23 Torsemide [Demadex] 40 mg PO DAILY tab 01/10/24 Pantoprazole [Protonix] 40 mg PO AC-BRKFST tab 01/13/24 Allergies Allergy/AdvReac Type Severity Reaction Status Date / Time No Known Allergies Allergy Verified 01/27/24 08:47 Review of Systems ROS Other: All systems not noted in ROS Statement are negative. Limitations: ROS unobtainable due to patients medical condition (Acute delirium) Constitutional: Reports: weakness Respiratory: Denies: cough, dyspnea Cardiovascular: Denies: chest pain, palpitations, edema Gastrointestinal: Denies: abdominal pain, vomiting Musculoskeletal: Denies: back pain Neurological: Denies: headache <Yefri Garcia - Last Filed: 01/27/24 07:06> ROS Other: All systems not noted in ROS Statement are negative. <Pablo Gusman - Last Filed: 02/01/24 16:52> ROS Statement: Those systems with pertinent positive or pertinent negative responses have been documented in the HPI. Past Medical History Past Medical History: Diabetes Mellitus, Hyperlipidemia, Hypertension, Renal Disease Additional Past Medical History / Comment(s): restless leg, neurothopy, Guillain-[place], dialysis Last Myocardial Infarction Date:: 2023 History of Any Multi-Drug Resistant Organisms: MRSA Date of last positivie culture/infection: 11/28/23 MDRO Source:: blood Past Surgical History: Orthopedic Surgery, Tonsillectomy Additional Past Surgical History / Comment(s): "plate in left leg to straighten leg as a child" - plate removed, right total hip replacement due to a fracture from a fall, dialysis Past Anesthesia/Blood Transfusion Reactions: No Reported Reaction Past Psychological History: No Psychological Hx Reported Smoking Status: Former smoker Past Alcohol Use History: None Reported Past Drug Use History: None Reported - Past Family History Mother History Unknown: Yes Additional Family Medical History / Comment(s): pt sedated on vent <Yefri Garcia - Last Filed: 01/27/24 07:06> General Exam General appearance: alert, in no apparent distress Head exam: Present: atraumatic, normocephalic Eye exam: Present: normal appearance. Absent: scleral icterus, conjunctival injection ENT exam: Present: mucous membranes dry Neck exam: Present: normal inspection Respiratory exam: Present: normal lung sounds bilaterally. Absent: respiratory distress, wheezes, rales, rhonchi, stridor Cardiovascular Exam: Present: regular rate, normal rhythm, normal heart sounds. Absent: systolic murmur, diastolic murmur, rubs, gallop GI/Abdominal exam: Present: soft. Absent: distended, tenderness, guarding, rebound, rigid, mass Extremities exam: Present: normal inspection, normal capillary refill. Absent: pedal edema, calf tenderness Back exam: Present: normal inspection. Absent: CVA tenderness (R), CVA tenderness (L) Neurological exam: Present: alert Skin exam: Present: warm, dry, intact, normal color. Absent: rash <Yefri Garcia - Last Filed: 01/27/24 07:06> Course <Pablo Gusman - Last Filed: 02/01/24 16:52> Vital Signs 01/27/24 01/27/24 01/27/24 04:35 06:52 08:43 Temperature 97.3 F L Pulse Rate 66 62 66 Respiratory 16 18 16 Rate Blood Pressure 105/45 102/59 109/63 O2 Sat by Pulse 95 96 96 Oximetry 01/27/24 01/27/24 01/27/24 13:03 17:00 17:18 Temperature 97.2 F L Pulse Rate 60 71 Respiratory 20 18 16 Rate Blood Pressure 102/60 145/71 O2 Sat by Pulse 95 96 Oximetry 01/27/24 20:16 Temperature Pulse Rate 67 Respiratory 18 Rate Blood Pressure 114/76 O2 Sat by Pulse 94 L Oximetry - Reevaluation(s) Reevaluation #1: Medical record is reviewed (Pablo Gusman) Reevaluation #2: Patient symptoms unchanged here in the ER (Pablo Gusman) Reevaluation #3: Was pt. sent in by a medical professional or institution (SILVIA Lizama, LICENSED LOAN OFFICER ASSISTANT, urgent care, hospital, or penitentiary...) When possible be specific @ -no Did you speak to anyone other than the patient for history (EMS, parent, family, police, friend...)? What history was obtained from this source @ -no Did you review nursing and triage notes (agree or disagree)? Why? @ -agree Are old charts reviewed (outside hosp., previous admission, EMS record, old EKG, old radiological studies, urgent care reports/EKG's, penitentiary records)? Report findings @ -yes Differential Diagnosis (chest pain, altered mental status, abdominal pain women, abdominal pain men, vaginal bleeding, weakness, fever, dyspnea, syncope, headache, dizziness, GI bleed, back pain, seizure, CVA, palpatations, mental health, musculoskeletal)? @ -prior EKG interpreted by me (3pts min.). @ -yes X-rays interpreted by me (1pt min.). @ -yes negative for acute disease CT interpreted by me (1pt min.). @ -no U/S interpreted by me (1pt. min.). @ -no What testing was considered but not performed or refused? (CT, X-rays, U/S, labs)? Why? @ -none What meds were considered but not given or refused? Why? @ -none Did you discuss the management of the patient with other professionals (professionals i.e. SILVIA Lizama, LICENSED LOAN OFFICER ASSISTANT, lab, RT, psych nurse, social professionals, pipe smoking machine offbearer, te acher, aeronautical engineering officer, casework supervisor)? Give summary @ -no Was smoking cessation discussed for >3mins.? @ -no Was critical care preformed (if so, how long)? @ -no Were there social determinants of health that impacted care today? How? (Homelessness, low income, unemployed, alcoholism, drug addiction, transportation, low edu. Level, literacy, decrease access to med. care, fci, rehab)? @ -none Was there de-escalation of care discussed even if they declined (Discuss DNR or withdrawal of care, Hospice)? DNR status @ -no What co-morbidities impacted this encounter? (DM, HTN, Smoking, COPD, CAD, Cancer, CVA, ARF, Chemo, Hep., AIDS, mental health diagnosis, sleep apnea, morbid obesity)? @ -none Was patient admitted / discharged? Hospital course, mention meds given and route, prescriptions, significant lab abnormalities, going to OR and other pertinent info. @ - Undiagnosed new problem with uncertain prognosis? @ -no Drug Therapy requiring intensive monitoring for toxicity (Heparin, Nitro, Insulin, Cardizem)? @ -no Were any procedures done? @ -no Diagnosis/symptom? @ - Acute, or Chronic, or Acute on Chronic? @ -Acute Uncomplicated (without systemic symptoms) or Complicated (systemic symptoms)? @ -Complicated Side effects of treatment? @ -no Exacerbation, Progression, or Severe Exacerbation? @ -exacerbation Poses a threat to life or bodily function? How? (Chest pain, USA, IA, pneumonia, PE, COPD, DKA, ARF, appy, cholecystitis, CVA, Diverticulitis, Homicidal, Suicidal, threat to staff... and all critical care pts) @ -yes (Pablo Gusman) Reevaluation #4: Was pt. sent in by a medical professional or institution (, PA, LICENSED LOAN OFFICER ASSISTANT, urgent care, hospital, or penitentiary...) When possible be specific @ -no Did you speak to anyone other than the patient for history (EMS, parent, family, police, friend...)? What history was obtained from this source @ -no Did you review nursing and triage notes (agree or disagree)? Why? @ -agree Are old charts reviewed (outside hosp., previous admission, EMS record, old EKG, old radiological studies, urgent care reports/EKG's, penitentiary records)? Report findings @ -yes Differential Diagnosis (chest pain, altered mental status, abdominal pain women, abdominal pain men, vaginal bleeding, weakness, fever, dyspnea, syncope, headache, dizziness, GI bleed, back pain, seizure, CVA, palpatations, mental health, musculoskeletal)? @ -prior EKG interpreted by me (3pts min.). @ -yes X-rays interpreted by me (1pt min.). @ -yes negative for acute disease CT interpreted by me (1pt min.). @ -no U/S interpreted by me (1pt. min.). @ -no What testing was considered but not performed or refused? (CT, X-rays, U/S, labs)? Why? @ -none What meds were considered but not given or refused? Why? @ -none Did you discuss the management of the patient with other professionals (professionals i.e. , PA, LICENSED LOAN OFFICER ASSISTANT, lab, RT, psych nurse, social professionals, pipe smoking machine offbearer, teacher, aeronautical engineering officer, casework supervisor)? Give summary @ -no Was smoking cessation discussed for >3mins.? @ -no Was critical care preformed (if so, how long)? @ -yes31 Were there social determinants of health that impacted care today? How? (Homelessness, low income, unemployed, alcoholism, drug addiction, transportation, low edu. Level, literacy, decrease access to med. care, fci, rehab)? @ -none Was there de-escalation of care discussed even if they declined (Discuss DNR or withdrawal of care, Hospice)? DNR status @ -no What co-morbidities impacted this encounter? (DM, HTN, Smoking, COPD, CAD, Cancer, CVA, ARF, Chemo, Hep., AIDS, mental health diagnosis, sleep apnea, morbid obesity)? @ -none Was patient admitted / discharged? Hospital course, mention meds given and route, prescriptions, significant lab abnormalities, going to OR and other pertinent info. @ - 58 female will admit for sepsis rule out with low blood pressure and severely elevated white blood cell count presents today for abnormal white blood cell count low blood pressure and altered mental status who was brought to the ER for low blood pressure Admitted Undiagnosed new problem with uncertain prognosis? @ -no Drug Therapy requiring intensive monitoring for toxicity (Heparin, Nitro, Insulin, Cardizem)? @ -no Were any procedures done? @ -no Diagnosis/symptom? @ -Sepsis with hypotension and leukocytosis Acute, or Chronic, or Acute on Chronic? @ -Acute Uncomplicated (without systemic symptoms) or Complicated (systemic symptoms)? @ -Complicated Side effects of treatment? @ -no Exacerbation, Progression, or Severe Exacerbation? @ -exacerbation Poses a threat to life or bodily function? How? (Chest pain, USA, IA, pneumonia, PE, COPD, DKA, ARF, appy, cholecystitis, CVA, Diverticulitis, Homicidal, Suicidal, threat to staff... and all critical care pts) @ -yes (Pablo Gusman) Reevaluation #5: Differential Weakness: Hypoglycemia, shock, sepsis, hyponatremia, anemia, infection, IA, ETOH, adverse medicine reaction, overdose, stroke, this is not meant to be an all-inclusive list. (Pablo Gusman) EKG Findings - EKG Results: EKG: interpreted by CECY, sinus rhythm (Rate 64 bpm) - Blocks, [place], Hypertrophy, ST Abn: QRS axis and voltage: indeterminate axis, low voltage (<0.5 MV total QRS and <1.0 MV in each precordial lead) <Yefri Garcia - Last Filed: 01/27/24 07:06> - EKG Comments: EKG Findings:: EKG is sinus 64 VA 164 QRS 91 QTc 433 - EKG Results: EKG: interpreted by ERMD, sinus rhythm <Pablo Gusman - Last Filed: 02/01/24 16:52> Medical Decision Making - Lab Data Result diagrams: 01/27/24 05:15 <Yefri Garcia - Last Filed: 01/27/24 07:06> - Lab Data Result diagrams: 01/28/24 04:06 01/28/24 04:06 - EKG Data -: EKG Interpreted by Co - Radiology Data Radiology results: report reviewed (Chest x-ray is negative for acute disease), image reviewed <Pablo Gusman - Last Filed: 02/01/24 16:52> - Medical Decision Making This patient is a 58-year-old woman who presents to evaluation for hypotension. She has history of same and does take midodrine. The patient denies complaints here. The patient had chest x-ray which I interpreted as negative for acute infiltrate, pneumothorax, congestive heart failure. There is cardiomegaly. There is dialysis catheter present (Yefri Garcia) 58 female will admit for sepsis rule out with low blood pressure and severely elevated white blood cell count presents today for abnormal white blood cell count low blood pressure and altered mental status who was brought to the ER for low blood pressure (Pablo Gusman) - Lab Data Lab Results 01/27/24 01/27/24 01/27/24 Range/Units 05:15 05:15 05:15 WBC 19.8 H (3.8-10.6) k/uL RBC 2.92 L (3.80-5.40) m/uL Hgb 7.3 L (11.4-16.0) gm/dL Hct 25.9 L (34.0-46.0) % MCV 88.6 D (80.0-100.0) fL MCH 25.1 (25.0-35.0) pg MCHC 28.4 L (31.0-37.0) g/dL RDW 18.3 H (11.5-15.5) % Plt Count 241 (150-450) k/uL MPV 9.8 Neutrophils % 91 % Lymphocytes % 3 % Monocytes % 4 % Eosinophils % 0 % Basophils % 0 % Neutrophils # 18.1 H (1.3-7.7) k/uL Lymphocytes # 0.5 L (1.0-4.8) k/uL Monocytes # 0.8 (0-1.0) k/uL Eosinophils # 0.0 (0-0.7) k/uL Basophils # 0.0 (0-0.2) k/uL Hypochromasia Marked Poikilocytosis Slight Anisocytosis Slight PT 14.2 H (10.0-12.5) sec INR 1.4 H (<1.2) APTT 25.3 (22.0-30.0) sec Sodium (137-145) mmol/L Potassium (3.5-5.1) mmol/L Chloride (98-107) mmol/L Carbon Dioxide (22-30) mmol/L Anion Gap mmol/L BUN (7-17) mg/dL Creatinine (0.52-1.04) mg/dL Est GFR (CKD-EPI)AfAm (>60 ml/min/1.73 sqM) Est GFR (CKD-EPI)NonAf (>60 ml/min/1.73 sqM) Glucose (74-99) mg/dL Calcium (8.4-10.2) mg/dL Magnesium (1.6-2.3) mg/dL Total Bilirubin (0.2-1.3) mg/dL AST (14-36) U/L ALT (4-34) U/L Alkaline Phosphatase (38-126) U/L Troponin I 0.015 (0.000-0.034) ng/mL NT-Pro-B Natriuret Pep pg/mL Total Protein (6.3-8.2) g/dL Albumin (3.5-5.0) g/dL 01/27/24 Range/Units 07:05 WBC (3.8-10.6) k/uL RBC (3.80-5.40) m/uL Hgb (11.4-16.0) gm/dL Hct (34.0-46.0) % MCV (80.0-100.0) fL MCH (25.0-35.0) pg MCHC (31.0-37.0) g/dL RDW (11.5-15.5) % Plt Count (150-450) k/uL MPV Neutrophils % % Lymphocytes % % Monocytes % % Eosinophils % % Basophils % % Neutrophils # (1.3-7.7) k/uL Lymphocytes # (1.0-4.8) k/uL Monocytes # (0-1.0) k/uL Eosinophils # (0-0.7) k/uL Basophils # (0-0.2) k/uL Hypochromasia Poikilocytosis Anisocytosis PT (10.0-12.5) sec INR (<1.2) APTT (22.0-30.0) sec Sodium 132 L (137-145) mmol/L Potassium 6.1 H* (3.5-5.1) mmol/L Chloride 97 L (98-107) mmol/L Carbon Dioxide 23 (22-30) mmol/L Anion Gap 12 mmol/L BUN 66 H (7-17) mg/dL Creatinine 4.16 H (0.52-1.04) mg/dL Est GFR (CKD-EPI)AfAm 13 (>60 ml/min/1.73 sqM) Est GFR (CKD-EPI)NonAf 11 (>60 ml/min/1.73 sqM) Glucose 59 L (74-99) mg/dL Calcium 8.7 (8.4-10.2) mg/dL Magnesium 2.3 (1.6-2.3) mg/dL Total Bilirubin 1.2 (0.2-1.3) mg/dL AST 34 (14-36) U/L ALT 19 (4-34) U/L Alkaline Phosphatase 218 H (38-126) U/L Troponin I (0.000-0.034) ng/mL NT-Pro-B Natriuret Pep 99519 pg/mL Total Protein 7.4 (6.3-8.2) g/dL Albumin 3.2 L (3.5-5.0) g/dL Critical Care Time Critical Care Time: Yes Total Critical Care Time: 31 <Pablo Gusman - Last Filed: 02/01/24 16:52> Disposition <Yefri Garcia - Last Filed: 01/27/24 07:06> Is patient prescribed a controlled substance at d/c from ED?: No Time of Disposition: 08:45 <Pablo Gusman - Last Filed: 02/01/24 16:52> Clinical Impression: Weakness, AMS (altered mental status), Leukocytosis, Sepsis, Hypotension Disposition: ADMITTED IP TO THIS HOSP Condition: Serious
[2024-01-27 05:44] LABS: INR 1.4 (<1.2); Partial Thromboplastin Time 25.3 sec (22.0-30.0); Prothrombin Time 14.2 sec (10.0-12.5)
[2024-01-27 05:48] LABS: Anisocytosis Slight; Basophils % (A) 0 %; Eosinophils % (A) 0 %; HCT 25.9 % (34.0-46.0); HGB 7.3 gm/dL (11.4-16.0); Hypochromasia Marked; Lymphocytes # (A) 0.5 k/uL (1.0-4.8); Lymphocytes % (A) 3 %; MCH 25.1 pg (25.0-35.0); MCHC 28.4 g/dL (31.0-37.0); Mean Platelet Volume 9.8; Monocytes # (A) 0.8 k/uL (0-1.0); Monocytes % (A) 4 %; Neutrophils # (A) 18.1 k/uL (1.3-7.7); Neutrophils % (A) 91 %; Platelet Count 241 k/uL (150-450); Poikilocytosis Slight; RBC 2.92 m/uL (3.80-5.40); RDW 18.3 % (11.5-15.5); WBC 19.8 k/uL (3.8-10.6)
[2024-01-27 05:51] LABS: MCV 88.6 fL (80.0-100.0)
--- NOTE | 2024-01-27 06:13 | XR ---
EXAM: XR Chest, 1 View CLINICAL HISTORY: Reason: chest pain TECHNIQUE: Frontal view of the chest. COMPARISON: 01/10/24 FINDINGS: Lungs: Lung volumes are within normal limits. There is no evidence of airspace consolidation. No pulmonary edema. Pleural space: Unremarkable. No pneumothorax. Heart: Mildly enlarged cardiac silhouette. Mediastinum: Tunneled right subclavian dual lumen dialysis catheter again seen with tip in the right atrium. Bones/joints: No evidence of acute osseous abnormality.. IMPRESSION: No evidence of pulmonary edema or airspace consolidation. Tunneled right subclavian dialysis catheter again seen, unchanged in position, with tip in right atrium.
[2024-01-27 07:33] LABS: ALT 19 U/L (4-34); AST 34 U/L (14-36); African American GFR (CKD) 13 (>60 ml/min/1.73 sqM); Albumin 3.2 g/dL (3.5-5.0); Alkaline Phosphatase 218 U/L (38-126); Anion Gap 12 mmol/L; Blood Urea Nitrogen 66 mg/dL (7-17); Calcium 8.7 mg/dL (8.4-10.2); Carbon Dioxide 23 mmol/L (22-30); Chloride 97 mmol/L (98-107); Glucose 59 mg/dL (74-99); Magnesium 2.3 mg/dL (1.6-2.3); Non-African American GFR(CKD) 11 (>60 ml/min/1.73 sqM); Sodium 132 mmol/L (137-145); Total Bilirubin 1.2 mg/dL (0.2-1.3); Total Protein 7.4 g/dL (6.3-8.2)
[2024-01-27 07:40] LABS: NT-Pro-B-Type Natriuretic Pept 27800 pg/mL
[2024-01-27 07:53] LABS: Potassium 6.1 mmol/L (3.5-5.1)
[2024-01-27] MEDS ORDERED: ONDANSETRON 4 MG/2 ML VIAL IVP PRN (08:42)
[2024-01-27] MEDS ORDERED: NALOXONE 0.4 MG/ML 1 ML VIAL IV PRN (08:42)
[2024-01-27] MEDS ORDERED: VANCOMYCIN IV PER PHARMACY 1 EACH MISC MISCELLANE PRN (08:44)
[2024-01-27] MEDS: SODIUM CHLORIDE 0.9% 1,000 ML IV SCH (08:53)
[2024-01-27] MEDS: SODIUM CHLORIDE 0.9% 1,000 ML IV STA (08:53)
[2024-01-27] MEDS: SODIUM CHLORIDE 0.9% 500 ML 500 ML IV STA (08:53)
[2024-01-27] MEDS: MORPHINE SULFATE 4 MG/ML SYRINGE IV PRN (09:05)
[2024-01-27] MEDS: VANCOMYCIN 1,000 MG in SODIUM CHLORIDE 0.9% 250 ML IVPB STA (09:15)
--- NOTE | 2024-01-27 11:51 | P.NPCON ---
History of Present Illness - History of Present Illness 58-year-old female with a past medical history of ESRD (MWF), diabetes mellitus, hyperlipidemia, and hypertension presents from a fdc for evaluation of hypotension. Per ED note her systolic was as low as the 70s last night. No history of fever. Patient has not missed any hemodialysis treatments. Patient has potassium of 6.1 on admission. Patient also found to have hemoglobin of 7.3. EKG in the ED showed sinus rhythm, intermediate axis, low voltage QRS in extremi ty leads, no signs of peaked T waves. CXR in the ED shows no evidence of pulmonary edema or consolidation. Tunneled right subclavian dialysis catheter seen, unchanged in position, with tip in right atrium. Nephrology consulted for management of CKD and hemodialysis. Past Medical History Past Medical History: Diabetes Mellitus, Hyperlipidemia, Hypertension, Renal Disease Additional Past Medical History / Comment(s): restless leg, neurothopy, Guillain-[place], dialysis Last Myocardial Infarction Date:: 2023 History of Any Multi-Drug Resistant Organisms: MRSA Date of last positivie culture/infection: 11/28/23 MDRO Source:: blood Past Surgical History: Orthopedic Surgery, Tonsillectomy Additional Past Surgical History / Comment(s): "plate in left leg to straighten leg as a child" - plate removed, right total hip replacement due to a fracture from a fall, dialysis Past Anesthesia/Blood Transfusion Reactions: No Reported Reaction Past Psychological History: No Psychological Hx Reported Smoking Status: Former smoker Past Alcohol Use History: None Reported Past Drug Use History: None Reported - Past Family History Mother History Unknown: Yes Additional Family Medical History / Comment(s): pt sedated on vent Medications and Allergies Home Medications Medication Instructions Recorded Confirmed Type Ipratropium-Albuterol Nebulize 3 ml INHALATION RT-Q6H PRN 10/09/23 01/27/24 History [Duoneb 0.5 mg-3 mg/3 ml Soln] Multivitamins, Thera [Multivitamin 1 tab PO DAILY 10/09/23 01/27/24 History (formulary)] Calcium Acetate [PhosLo] 667 mg PO TID-W/MEALS tab 10/21/23 01/27/24 Rx Insulin Lispro [humaLOG Kwikpen] See Protocol SQ AC-TID 11/21/23 01/27/24 History Levothyroxine Sodium [Synthroid] 75 mcg PO DAILY@0600 11/21/23 01/27/24 History Aspirin 81 mg PO DIRECTED 01/03/24 01/27/24 History Atorvastatin [Lipitor] 40 mg PO HS 01/03/24 01/27/24 History Clopidogrel [Plavix] 75 mg PO DAILY 01/03/24 01/27/24 History Docusate [Colace] 100 mg PO BID 01/03/24 01/27/24 History Folic Acid 1 mg PO DAILY 01/03/24 01/27/24 History Gabapentin [Neurontin] 100 mg PO BID 01/03/24 01/27/24 History Melatonin 5 mg PO HS 01/03/24 01/27/24 History Midodrine [ProAmatine] 5 mg PO Q12H PRN 01/03/24 01/27/24 History Thiamine [Vitamin B-1] 100 mg PO DAILY 01/03/24 01/27/24 History hydrALAZINE HCL [Apresoline] 25 mg PO BID 01/03/24 01/27/24 History rOPINIRole HCL [Requip] 2 mg PO HS 01/03/24 01/27/24 History Torsemide [Demadex] 40 mg PO DAILY tab 01/10/24 01/27/24 Rx Pantoprazole [Protonix] 40 mg PO AC-BRKFST tab 01/13/24 01/27/24 Rx Acetaminophen Tab [Tylenol Tab] 500 mg PO Q4H PRN 01/27/24 01/27/24 History Darbepoetin Frantz [Aranesp] 40 mcg SQ WE 01/27/24 01/27/24 History HYDROcodone/APAP 7.5-325MG [[place] 1 tab PO Q6H PRN 01/27/24 01/27/24 History 7.5-325] Sodium Chloride [Saline Mist] 1 spray EA NOSTRIL BID 01/27/24 01/27/24 History Allergies Allergy/AdvReac Type Severity Reaction Status Date / Time No Known Allergies Allergy Verified 01/27/24 08:47 Physical Exam Vitals: Vital Signs Temp Pulse Resp BP Pulse Ox 01/27/24 08:43 66 16 109/63 96 01/27/24 06:52 62 18 102/59 96 01/27/24 04:35 97.3 F L 66 16 105/45 95 Intake and Output 01/26/24 01/27/24 01/27/24 22:59 06:59 14:59 Other: Weight 58.967 kg Vital signs are stable. General: No acute distress. HEENT: Head exam is unremarkable. On nasal cannula. LUNGS: No audible rhonchi or wheezes. HEART: Rate and Rhythm are regular. ABDOMEN: Nontender. EXTREMITITES: Edema noted in the left leg and 1-2 + pitting edema in R leg Results - Lab Results Most recent lab results Calcium 8.7 mg/dL (8.4-10.2) 01/27/24 07:05 Magnesium 2.3 mg/dL (1.6-2.3) 01/27/24 07:05 01/27/24 05:15 01/27/24 07:05 Assessment and Plan Assessment: 1. End-stage renal disease maintained on hemodialysis on MWF schedule. 2. Hypotension, r/o underlying infection. hgb low at 7.3. No active bleeding noted. 3. Hyperkalemia, HD today 4. Chronic lower ext. edema. 5. Anemia of chronic disease. No active bleeding. Plan: Initiate hemodialysis today. Repeat labs in AM Ordered beto Thank you for the consultation we will continue to follow the patient. Agree with resident's findings assessment and plan.
[2024-01-27] MEDS ORDERED: IPRATROPIUM-ALBUTEROL 3 ML NEB INHALATION PRN (13:33)
[2024-01-27] MEDS ORDERED: ACETAMINOPHEN TAB 500 MG TAB PO PRN (13:33)
[2024-01-27] MEDS: CALCIUM ACETATE 667 MG TAB PO SCH (16:57)
[2024-01-27] MEDS: ASPIRIN 81 MG PO PRN (16:57)
[2024-01-27] MEDS: ATORVASTATIN 40 MG TAB PO SCH (20:18)
[2024-01-27] MEDS: HYDROcodone/APAP 7.5-325MG 1 EACH TAB PO PRN (20:18)
[2024-01-27] MEDS: GABAPENTIN 100 MG CAP PO SCH (20:18)
[2024-01-27] MEDS: DOCUSATE 100 MG CAP PO SCH (20:19)
[2024-01-27] MEDS: hydrALAZINE HCL 25 MG TAB PO SCH (20:27)
--- NOTE | 2024-01-27 22:54 | P.CONS ---
History of Present Illness - Reason for Consult Consult date: 01/27/24 Sepsis Requesting physician: Pablo Gusman - Chief Complaint Low blood pressure and weakness x 1 day - History of Present Illness Patient is a 58-year-old female with a past medical history significant for diabetes mellitus hypertension hyperlipidemia end-stage renal disease on dialysis patient also have a right heel diabetic foot ulcer cellulitis and a recent admission to the hospital with MRSA bacteremia secondary to dialysis catheter which was subsequently discontinued and after clearing of her bacteremia new catheter was placed with the patient subsequently pulled out and apparently the patient did have cardiac arrest during insertion of last dialysis catheter that was on last admission patient subsequently stabilized and has been discharged to the shelter patient has been brought back to the hospital concerning for hypertension that happened apparently the night before presentation to the hospital and the patient was noted to have systolic of 70 patient has been brought into the hospital on arrival to the ER the patient was afebrile and no fever have been recorded subsequently patient was not tachycardic or hypoxic and no need for supplemental oxygen she did have elevated white count of 19.8 creatinine is 4.16 keeping in mind hypertension elevated white count concerning for possible sepsis patient was started on Rocephin and vancomycin infectious disease was consulted for further management of antibiotic therapy patient did have a chest x-ray that was negative for pulm edema or airspace consolidation at the time my evaluation patient has some not a very good historian she is breathing comfortably on room air she has been asking again again that she has to go to the bathroom and has to be put denies having any abdominal pain no nausea no vomiting and no diarrhea has been reported Review of Systems Positive point and negatives has been mentioned in the HPI, complete review of systems was performed and all other systems are negative Past Medical History Past Medical History: Diabetes Mellitus, Hyperlipidemia, Hypertension, Renal Disease Additional Past Medical History / Comment(s): restless leg, neurothopy, Guillain -[place], dialysis Last Myocardial Infarction Date:: 2023 History of Any Multi-Drug Resistant Organisms: MRSA Year Discovered:: 11/28/23 MDRO Source:: blood Past Surgical History: Orthopedic Surgery, Tonsillectomy Additional Past Surgical History / Comment(s): "plate in left leg to straighten leg as a child" - plate removed, right total hip replacement due to a fracture from a fall, dialysis Past Anesthesia/Blood Transfusion Reactions: No Reported Reaction Past Psychological History: No Psychological Hx Reported Smoking Status: Former smoker Past Alcohol Use History: None Reported Past Drug Use History: None Reported - Past Family History Mother History Unknown: Yes Additional Family Medical History / Comment(s): pt sedated on vent Medications and Allergies Home Medications Medication Instructions Recorded Confirmed Type Ipratropium-Albuterol Nebulize 3 ml INHALATION RT-Q6H PRN 10/09/23 01/27/24 History [Duoneb 0.5 mg-3 mg/3 ml Soln] Multivitamins, Thera [Multivitamin 1 tab PO DAILY 10/09/23 01/27/24 History (formulary)] Calcium Acetate [PhosLo] 667 mg PO TID-W/MEALS tab 10/21/23 01/27/24 Rx Insulin Lispro [humaLOG Kwikpen] See Protocol SQ AC-TID 11/21/23 01/27/24 History Levothyroxine Sodium [Synthroid] 75 mcg PO DAILY@0600 11/21/23 01/27/24 History Aspirin 81 mg PO DIRECTED 01/03/24 01/27/24 History Atorvastatin [Lipitor] 40 mg PO HS 01/03/24 01/27/24 History Clopidogrel [Plavix] 75 mg PO DAILY 01/03/24 01/27/24 History Docusate [Colace] 100 mg PO BID 01/03/24 01/27/24 History Folic Acid 1 mg PO DAILY 01/03/24 01/27/24 History Gabapentin [Neurontin] 100 mg PO BID 01/03/24 01/27/24 History Melatonin 5 mg PO HS 01/03/24 01/27/24 History Midodrine [ProAmatine] 5 mg PO Q12H PRN 01/03/24 01/27/24 History Thiamine [Vitamin B-1] 100 mg PO DAILY 01/03/24 01/27/24 History hydrALAZINE HCL [Apresoline] 25 mg PO BID 01/03/24 01/27/24 History rOPINIRole HCL [Requip] 2 mg PO HS 01/03/24 01/27/24 History Torsemide [Demadex] 40 mg PO DAILY tab 01/10/24 01/27/24 Rx Pantoprazole [Protonix] 40 mg PO AC-BRKFST tab 01/13/24 01/27/24 Rx Acetaminophen Tab [Tylenol Tab] 500 mg PO Q4H PRN 01/27/24 01/27/24 History Darbepoetin Frantz [Aranesp] 40 mcg SQ WE 01/27/24 01/27/24 History HYDROcodone/APAP 7.5-325MG [[place] 1 tab PO Q6H PRN 01/27/24 01/27/24 History 7.5-325] Sodium Chloride [Saline Mist] 1 spray EA NOSTRIL BID 01/27/24 01/27/24 History Allergies Allergy/AdvReac Type Severity Reaction Status Date / Time No Known Allergies Allergy Verified 01/27/24 08:47 Physical Exam Vitals: Vital Signs Temp Pulse Resp BP Pulse Ox 01/27/24 08:43 66 16 109/63 96 01/27/24 06:52 62 18 102/59 96 01/27/24 04:35 97.3 F L 66 16 105/45 95 Intake and Output 01/26/24 01/27/24 01/27/24 22:59 06:59 14:59 Other: Weight 58.967 kg GENERAL DESCRIPTION: Middle-aged female lying in bed, no distress. No tachypnea or accessory muscle of respiration use. HEENT: Shows Pallor , no scleral icterus. Oral mucous membrane is dry. No pharyngeal erythema or thrush NECK: Trachea central, no thyromegaly. LUNGS: Unlabored breathing. Decreased breath sound at the base HEART: S1, S2, regular rate and rhythm. No loud murmur ABDOMEN: Soft, no tenderness , guarding or rigidity, no organomegaly EXTREMITIES: Right heel stage II ulcer with no slough tissue surrounding redness SKIN: No rash, no masses palpable. NEUROLOGICAL: The patient is awake, seem to be slightly confused, mood and aff ect normal. Results CBC & Chem 7: 01/28/24 04:06 01/28/24 04:06 Labs: Abnormal Lab Results - Last 24 Hours (Table) 01/27/24 01/27/24 01/27/24 Range/Units 05:15 05:15 07:05 WBC 19.8 H (3.8-10.6) k/uL RBC 2.92 L (3.80-5.40) m/uL Hgb 7.3 L (11.4-16.0) gm/dL Hct 25.9 L (34.0-46.0) % MCHC 28.4 L (31.0-37.0) g/dL RDW 18.3 H (11.5-15.5) % Neutrophils # 18.1 H (1.3-7.7) k/uL Lymphocytes # 0.5 L (1.0-4.8) k/uL PT 14.2 H (10.0-12.5) sec INR 1.4 H (<1.2) Sodium 132 L (137-145) mmol/L Potassium 6.1 H* (3.5-5.1) mmol/L Chloride 97 L (98-107) mmol/L BUN 66 H (7-17) mg/dL Creatinine 4.16 H (0.52-1.04) mg/dL Glucose 59 L (74-99) mg/dL Alkaline Phosphatase 218 H (38-126) U/L Albumin 3.2 L (3.5-5.0) g/dL Assessment and Plan (1) Leukocytosis Status: Acute Code(s): D72.829 - ELEVATED WHITE BLOOD CELL COUNT, UNSPECIFIED SNOMED Code(s): 447853035 (2) Type 2 diabetes mellitus with foot ulcer Status: Acute Code(s): E11.621 - TYPE 2 DIABETES MELLITUS WITH FOOT ULCER; L97.509 - NON-PRESSURE CHRONIC ULCER OTH PRT UNSP FOOT W UNSP SEVERITY SNOMED Code(s): 7658930688575 Plan: 1patient presented to hospital with hypotension also have elevated white count meeting criteria for SIRS with a question of possible dialysis catheter infection as currently no other obvious focus patient wound to the left heel with no evidence of any cellulitis chest x-ray was reported negative and no abdominal tenderness. 2we will obtain blood culture peripherally and blood cultures also be collected at the time of dialysis 3-patient is empirically covered with vancomycin and Rocephin to continue while waiting for the workup to be completed 4-local wound care to the right heel wound with Aquacel silver dressing change q. 48-hour We will follow on clinical condition and cultures to further adjust medication if needed Thank you for this consultation we will follow the patient along with you Dictation was produced using [employer] software. please excuse any grammatical, word or spelling errors. Time with Patient: Greater than 30
[2024-01-28] MEDS: MELATONIN 5 MG TABLET PO SCH (00:13)
[2024-01-28] MEDS: SODIUM CHLORIDE 0.65% NASAL SPRAY 44 ML BTL NASAL SCH (00:37)
[2024-01-28 02:51] VITALS: RESP 17
[2024-01-28] MEDS: MIDODRINE 5 MG TAB PO PRN (05:06)
[2024-01-28] MEDS: LEVOTHYROXINE 75 MCG TAB PO SCH (05:39)
[2024-01-28] MEDS ORDERED: SODIUM BICARB 8.4% 50 ML SYR (1 MEQ/ML) ONE (07:26)
[2024-01-28] MEDS ORDERED: SODIUM CHLORIDE 0.9% 1,000 ML BAG ONE (07:26)
[2024-01-28] MEDS ORDERED: EPINEPHrine 10 ML SYRINGE (0.1 MG/ML) ONE (07:26)
[2024-01-28] MEDS ORDERED: CALCIUM CHLORIDE 100 MG/ML 10 ML SYRINGE ONE (07:26)
[2024-01-28] MEDS ORDERED: INSULIN ASPART (NovoLOG) 100 UNIT/ML VIAL SQ SCH (07:30)
[2024-01-28] MEDS ORDERED: PANTOPRAZOLE 40 MG TABLET PO SCH (07:30)
[2024-01-28 08:18] LABS: Basophils # (A) 0.03 X 10*3/uL (0.00-0.10); Basophils % (A) 0.3 %; Eosinophils # (A) 0.02 X 10*3/uL (0.04-0.35); Eosinophils % (A) 0.2 %; HCT 26.6 % (37.2-46.3); HGB 7.3 g/dL (12.0-15.0); Lymphocytes # (A) 0.61 X 10*3/uL (0.90-5.00); Lymphocytes % (A) 5.3 %; MCH 25.3 pg (27.0-32.0); MCHC 27.4 g/dL (32.0-37.0); MCV 92.4 FL (80.0-97.0); Mean Platelet Volume 12.3 FL (9.5-12.2); Monocytes # (A) 0.75 X 10*3/uL (0.20-1.00); Monocytes % (A) 6.6 %; NRBC Per 100 WBC 0.04 X 10*3/uL (0.00-0.01); Neutrophils # (A) 9.99 X 10*3/uL (1.80-7.70); Neutrophils % (A) 87.3 %; Platelet Count 231 X 10*3/uL (140-440); RBC 2.88 X 10*6/uL (4.10-5.20); RDW 19.9 % (11.5-14.5); WBC 11.44 X 10*3/uL (4.50-10.00)
[2024-01-28 08:29] VITALS: BP 128/72; PULSE 58; TEMP 97.9
[2024-01-28 08:52] LABS: BUN/Creat Ratio 12.97 Ratio (12.00-20.00); Blood Urea Nitrogen 40.2 mg/dL (9.0-27.0); Chloride 96 mmol/L (96-109); Glucose 192 mg/dL (70-110); Magnesium 2.3 mg/dL (1.5-2.4); Phosphorus 7.3 mg/dL (2.4-5.1); Potassium 5.6 mmol/L (3.5-5.5); Sodium 135 mmol/L (135-145)
[2024-01-28 08:53] LABS: ALT 26 U/L (8-44); AST 39 U/L (13-35); Albumin 3.1 g/dL (3.8-4.9); Alkaline Phosphatase 270 U/L (41-126); Calcium 8.3 mg/dL (8.7-10.3); Globulin 4.4 g/dL (1.6-3.3); Total Bilirubin 0.9 mg/dL (0.3-1.2); Total Protein 7.5 g/dL (6.2-8.2)
[2024-01-28] MEDS ORDERED: THIAMINE 100 MG TAB PO SCH (09:00)
[2024-01-28] MEDS ORDERED: MULTIVITAMINS, THERA 1 EACH TAB PO SCH (09:00)
[2024-01-28] MEDS ORDERED: TORSEMIDE 20 MG TAB PO SCH (09:00)
[2024-01-28] MEDS ORDERED: FOLIC ACID 1 MG TAB PO SCH (09:00)
[2024-01-28] MEDS ORDERED: CLOPIDOGREL 75 MG TAB PO SCH (09:00)
[2024-01-28] MEDS ORDERED: VANCOMYCIN 1,000 MG in SODIUM CHLORIDE 0.9% 250 ML IVPB ONE (10:00)
--- NOTE | 2024-01-28 17:10 | P.EN ---
Code called overhead at 0726 on 01/28/2024. Per nursing staff, patient was found to be unresponsive, bradycardic, and then became pulseless. She received a total of 7 epi, 4 bicarb, 2 calcium. She was intubated at 0740. After multiple rounds of compressions, she briefly had ROSC which again devolved into bradycardia and PEA arrest. She had further CPR per ACLS guidelines. No ROSC this time. Patient pronounced at 0756. Family is aware. Primary attending was contacted.
[2024-01-29] MEDS ORDERED: DARBEPOETIN ALFA 40 MCG/0.4 ML SYRINGE SQ SCH (09:00)
[2024-01-31 15:04] LABS: Glucose,Whole Blood 206 mg/dL (70-110)
[2024-01-31 15:05] LABS: Glucose,Whole Blood 188 mg/dL (70-110)
--- NOTE | 2024-02-01 14:18 | P.DS ---
Providers Date of admission: 01/27/24 08:44 Expected date of discharge: 01/28/24 Attending physician: Jesus Mina Consults: 01/27/24 08:42 Consult Physician Routine Consulting Provider: Mateo Zambrano Consult Reason/Comments: CKD Do you want consulting provider notified?: Yes 01/27/24 08:45 Consult Physician Routine Consulting Provider: Shawnee Subramanian Consult Reason/Comments: sepsis Do you want consulting provider notified?: Yes Primary care physician: Jesus Mina Hospital Course: HISTORY OF PRESENT ILLNESS: This is a 58-year-old female with a previous medical history significant for coronary artery disease status post PCI of the RCA 2023 with ischemic cardiomyopathy, hypertension and hypertensive cardiovascular disease, hyperlipidemia, diabetes mellitus type 2 uncontrolled, fracture of the right medial and lateral malleolus, anemia of chronic kidney disease, COPD, epistaxis, chronic kidney disease stage 4 due to cardiorenal syndrome she ended up getting started on dialysis on the last hospital admission about a month ago when she was admitted to the hospital with fluid overload and acute systolic heart failure and worsening renal failure despite aggressive diuresis, and using significant amount of diuretics, patient ended up going on dialysis she had a permanent catheter placed in the right internal jugular vein, and patient developed to have a significant MRSA bacteremia that required removal of the dialysis catheter and subsequently she was treated with IV antibiotic for a total I believe of 4 weeks of IV antibiotic in the form of daptomycin, patient blood cultures normalizes, the patient ended up having another permacatheter placed in the left internal jugular vein, and the patient was discharged to [facility] and she has been there she has been going to dialysis at [facility] and she has been doing fine till her last hospital admission when she pulled her dialysis catheter out and [facility] and she had a guidewire exchange of her permacatheter and the patient coded at that time she went into pulseless electrical activity she was treated and admitted in the cervical unit, and subsequently she was discharged back to [facility], patient came with mental status changes with increased leukocytosis as well as hypotension, because of her prior history of MRSA bacteremia, and because of the permacatheter placement, patient was admitted to the hospital for evaluation after obtaining blood cultures, patient also did receive vancomycin with pharmacy to dose his peak and trough as well as ceftriaxone, infectious disease consultation will be obtained from Dr. Subramanian, patient does have a chronic wound to the right heel that appears to be clean at the base but we will check the wound culture, including aerobic and anaerobic cultures. 01/27: Patient was seen yesterday by both nephrology and infectious disease. Dr. Subramanian continue patient on vancomycin and Rocephin along with local wound care for the right heel wound with Aquacel silver dressing change every 48 hours. Nephrology initiated hemodialysis yesterday. Patient seem to be stabilized but unfortunately, patient had a cardiac arrest, her heart rate dropped down into the 30s and when staff went into her room she was found to be unresponsive with blood coming from her mouth. CPR was initiated followed by ACLS protocol. Spontaneous pulse was not able to be obtained and patient . Please see nursing documentation for details of the event. DISCHARGE DIAGNOSES: 1. Leukocytosis likely due to sepsis. 2. Chronic systolic heart failure. 3. Right heel wound. 4. Coronary artery disease status post PCI of the RCA. 5. Hypertension and hypertensive cardiovascular disease. 6. Mixed hyperlipidemia. 7. Diabetes mellitus type 2. 8. Close leg syndrome. 9. Anemia of chronic kidney disease. 10. Hypothyroidism. 11. COPD not in exacerbation 12. Chronic hypoxemic respiratory failure due to combination of nonischemic cardiomyopathy and COPD. 13. Subacute fracture of the medial and lateral malleolus. 14. GERD. Patient Condition at Discharge: Serious Plan - Discharge Summary Discharge Rx Participant: Yes New Discharge Prescriptions: No Action Ipratropium-Albuterol Nebulize [Duoneb 0.5 mg-3 mg/3 ml Soln] 3 ml INHALATION RT-Q6H PRN PRN Reason: Shortness Of Breath Or Wheezing Insulin Lispro [humaLOG Kwikpen] See Protocol SQ AC-TID Aspirin 81 mg PO DIRECTED Clopidogrel [Plavix] 75 mg PO DAILY Melatonin 5 mg PO HS rOPINIRole HCL [Requip] 2 mg PO HS hydrALAZINE HCL [Apresoline] 25 mg PO BID Thiamine [Vitamin B-1] 100 mg PO DAILY Midodrine [ProAmatine] 5 mg PO Q12H PRN PRN Reason: SBP<110 Gabapentin [Neurontin] 100 mg PO BID Docusate [Colace] 100 mg PO BID Acetaminophen Tab [Tylenol Tab] 500 mg PO Q4H PRN PRN Reason: Mild Pain (Scale 1 To 3) Sodium Chloride [Saline Mist] 1 spray EA NOSTRIL BID Darbepoetin Frantz [Aranesp] 40 mcg SQ WE Multivitamins, Thera [Multivitamin (formulary)] 1 tab PO DAILY Calcium Acetate [PhosLo] 667 mg PO TID-W/MEALS tab Levothyroxine Sodium [Synthroid] 75 mcg PO DAILY@0600 Atorvastatin [Lipitor] 40 mg PO HS Folic Acid 1 mg PO DAILY Torsemide [Demadex] 40 mg PO DAILY tab Pantoprazole [Protonix] 40 mg PO AC-BRKFST tab HYDROcodone/APAP 7.5-325MG [[place] 7.5-325] 1 tab PO Q6H PRN PRN Reason: Pain Discharge Medication List Ipratropium-Albuterol Nebulize [Duoneb 0.5 mg-3 mg/3 ml Soln] 3 ml INHALATION RT-Q6H PRN 10/09/23 [History] Multivitamins, Thera [Multivitamin (formulary)] 1 tab PO DAILY 10/09/23 [History] Calcium Acetate [PhosLo] 667 mg PO TID-W/MEALS tab 10/21/23 [Rx] Insulin Lispro [humaLOG Kwikpen] See Protocol SQ AC-TID 11/21/23 [History] Levothyroxine Sodium [Synthroid] 75 mcg PO DAILY@0600 11/21/23 [History] Aspirin 81 mg PO DIRECTED 01/03/24 [History] Atorvastatin [Lipitor] 40 mg PO HS 01/03/24 [History] Clopidogrel [Plavix] 75 mg PO DAILY 01/03/24 [History] Docusate [Colace] 100 mg PO BID 01/03/24 [History] Folic Acid 1 mg PO DAILY 01/03/24 [History] Gabapentin [Neurontin] 100 mg PO BID 01/03/24 [History] Melatonin 5 mg PO HS 01/03/24 [History] Midodrine [ProAmatine] 5 mg PO Q12H PRN 01/03/24 [History] Thiamine [Vitamin B-1] 100 mg PO DAILY 01/03/24 [History] hydrALAZINE HCL [Apresoline] 25 mg PO BID 01/03/24 [History] rOPINIRole HCL [Requip] 2 mg PO HS 01/03/24 [History] Torsemide [Demadex] 40 mg PO DAILY tab 01/10/24 [Rx] Pantoprazole [Protonix] 40 mg PO AC-BRKFST tab 01/13/24 [Rx] Acetaminophen Tab [Tylenol Tab] 500 mg PO Q4H PRN 01/27/24 [History] Darbepoetin Frantz [Aranesp] 40 mcg SQ WE 01/27/24 [History] HYDROcodone/APAP 7.5-325MG [[place] 7.5-325] 1 tab PO Q6H PRN 01/27/24 [History] Sodium Chloride [Saline Mist] 1 spray EA NOSTRIL BID 01/27/24 [History] Follow up Appointment(s)/Referral(s): Jesus Mina MD [Primary Care Provider] - 1-2 days
== END 2024-01-28 07:56 | disposition expired ==
LOC: EC 04:32 → 6NMEDSUR 08:44 → 4SSUR 20:12
PROVIDERS: ADMIT Internal Medicine; ATTEND Internal Medicine
DX: I46.9 Cardiac arrest, cause unspecified (principal); I95.9 Hypotension, unspecified; E87.5 Hyperkalemia; R60.0 Localized edema; D72.829 Elevated white blood cell count, unspecified; E78.5 Hyperlipidemia, unspecified; E11.22 Type 2 diabetes mellitus with diabetic chronic kidney disease; E11.621 Type 2 diabetes mellitus with foot ulcer; I12.0 Hypertensive chronic kidney disease with stage 5 chronic kidney disease or end stage renal disease; N18.6 End stage renal disease; E11.40 Type 2 diabetes mellitus with diabetic neuropathy, unspecified; D63.1 Anemia in chronic kidney disease; Z99.2 Dependence on renal dialysis; Z87.891 Personal history of nicotine dependence; Z79.890 Hormone replacement therapy; Z79.82 Long term (current) use of aspirin; Z79.899 Other long term (current) drug therapy; Z79.02 Long term (current) use of antithrombotics/antiplatelets
CPT/HCPCS: 96376; 96365; 96366; 96367; 96375; 99291; 36415; 92950; 93005; 83880; 80053 ×2; 83735 ×2; 84100; 84484; 85025 ×2; 85610; 85730; 87040; 87070; 87205; 87075; 71045; G0378 ×3; J3370; J2270 ×2; J0696; J0171; 90935